=== PATIENT | male | born 1945 | race Caucasian/White ===

== ENCOUNTER 2019-04-13 15:39 | Emergency (ER) | payer MEDICARE, OTHER, SELFPAY ==
[2018-12-13 15:00] VITALS: BMI 34.8
[2019-04-13 15:41] VITALS: BP 165/85; PULSE 83; RESP 17; TEMP 37.2; O2SAT 95; BMI 33.2
[2019-04-13] MEDS: Diphth,Pertuss(Acell),Tet Vac 0.5 ML Vial IM (16:13)
--- NOTE | 2019-04-13 16:49 | ED.DEP ---
ED Disposition - Plan for ED Patient: Instructions: Fish Hook Removal Prescriptions: Cephalexin [Keflex] 500 mg PO Q12 #14 capsule Referrals: Donaldo Larson DO [Primary Care Provider] -
--- NOTE | 2019-04-13 16:55 | ED.VISSUMM ---
- ER Visit Summary Date of Service: 04/13/19 Chief Complaint: [place] left fourth finger History of Present Illness: The patient is a 74 M presenting with fishhook left fourth finger. Patient was fishing today. He accidentally got a fishhook stuck in his left fourth finger. This occurred just prior to arrival. Last tetanus is unknown. Denies other injury. Physical Examination: Vitals are stable. Patient is afebrile. Alert no acute distress. HEENT exam is unremarkable. Neck is supple. Lungs are clear and equal bilaterally. Heart is regular rate and rhythm. Extremities fish hook distal left 4th finger Skin is warm and dry. No focal neurologic deficit. Remainder of exam is unremarkable. Emergency Department Course and Treatment: Digital block was performed. Additional local lidocaine was instilled into the distal left fourth finger. [place] was removed. He is given tetanus IM and Keflex. Advised to watch for signs of infection. Advised to follow-up with primary care physician. Advised return to ED if worsening complaints. Disposition: Discharge home Impression: [place] left fourth finger, removal This note was generated with [employer] dictation software. It may contain incorrect words, spelling, and punctuation that were not noted in review of the chart prior to signing ED Disposition - Plan for ED Patient: Instructions: Fish Hook Removal Prescriptions: Cephalexin [Keflex] 500 mg PO Q12 #14 cap Prescription Printed Referrals: Donaldo Larson DO [Primary Care Provider] -
[2019-04-13 16:58] VITALS: BP 139/74; PULSE 61; RESP 15; O2SAT 98
[2019-04-13] MEDS: Cephalexin 250 MG Capsule 500 MG PO (16:59)
== END 2019-04-13 17:01 | disposition home or self-care (01) ==
PROVIDERS: Emergency Provider Emergency Medicine; Family Provider Family Medicine; PCP Family Medicine
DX: S61.245A Puncture wound with foreign body of left ring finger without damage to nail, initial encounter (principal); W45.8XXA Other foreign body or object entering through skin, initial encounter; Y93.9 Activity, unspecified; Y92.9 Unspecified place or not applicable; I10 Essential (primary) hypertension; F41.9 Anxiety disorder, unspecified; F43.10 Post-traumatic stress disorder, unspecified; Z79.01 Long term (current) use of anticoagulants; Z79.899 Other long term (current) drug therapy
CPT/HCPCS: 90471; 90715; 99284

== ENCOUNTER → 2019-07-29 13:44 | Outpatient (CLI) | payer MEDICARE, OTHER, SELFPAY ==
[2019-07-11 14:09] VITALS: BMI 35.9
--- NOTE | 2019-07-29 13:44 | ECHOCS_ITS ---
Reason For Study: Valve Replacement Eval Procedure This was a 2D Doppler, Color Flow transthoracic echocardiogram. The study was technically difficult. Contrast injection was performed. Exam performed in department. Left Ventricle Normal LV size. Left ventricular systolic function is normal. The estimated ejection fraction is 60 %. Post operative septal motion. Right Ventricle Normal RV size. Normal systolic function. Atria The left atrium is mildly enlarged. Normal right atrium. No doppler evidence for ASD. Mitral Valve There is no mitral annular calcification. Mild diffuse mitral valve thickening. Trivial mitral valve insufficiency. Tricuspid Valve Normal tricuspid valve. Trivial tricuspid valve insufficiency. Right ventricular systolic pressure estimated to be 24 mmHg. Aortic Valve Stable appearing mechanical aortic valve apparatus. Pulmonic Valve The pulmonic valve is not well visualized. Mild (1+) eccentric pulmonic valve insufficiency. Great Vessels The aortic root is not well visualized. Pericardium/Pleural No pericardial effusion. Medication 22 gauge I.V. with prn adaptor inserted into right arm. Diluted definity 2ml given slow IV push to enhance endocardial definition. MMode/2D Measurements & Calculations LVIDd: 5.0 cm IVSd: 1.3 cm LVOT diam: 2.1 cm LVIDs: 3.8 cm LVPWd: 1.1 cm FS: 25.1 % LVOT area: 3.5 cm2 LA dimension: 5.3 cm LVAd ap4: 38.2 cm2 SV(MOD-sp4): 83.5 ml EDV(MOD-sp4): 150.6 ml EDV(sp4-el): 158.5 ml LVAs ap4: 23.7 cm2 ESV(MOD-sp4): 67.2 ml ESV(sp4-el): 67.0 ml EF(MOD-sp4): 55.4 % EF(sp4-el): 57.7 % SV(sp4-): 91.5 ml Time Measurements MV dec time: 0.18 sec Doppler Measurements & Calculations MV E max darrick: 84.1 cm/sec Lat Peak E' Darrick: 13.6 cm/sec Med Peak E' Darrick: 7.8 cm/sec MV A max darrick: 56.4 cm/sec E/E' lat: 6.2 E/E' med: 10.8 MV E/A: 1.5 MV V2 max: 92.2 cm/sec MV P1/2t max darrick: 90.1 cm/sec Ao V2 max: 191.8 cm/sec MV max P.4 mmHg MV P1/2t: 51.2 msec Ao max P.7 mmHg MV V2 mean: 48.4 cm/sec MV dec slope: 515.6 cm/sec2 Ao V2 mean: 141.0 cm/sec MV mean P.1 mmHg Ao mean P.7 mmHg MV V2 VTI: 21.0 cm MVA(P1/2t): 4.3 cm2 Ao V2 VTI: 37.7 cm MVA(VTI): 3.9 cm2 SEVERIANO(I,D): 2.1 cm2 SEVERIANO(V,D): 1.8 cm2 LV V1 max: 101.2 cm/sec SV(LVOT): 81.0 ml PA V2 max: 199.3 cm/sec LV V1 max P.1 mmHg LV V1 mean P.5 mmHg LV V1 mean: 74.2 cm/sec LV V1 VTI: 23.5 cm PI end-d darrick: 122.8 cm/sec TR max darrick: 231.5 cm/sec TR max P.4 mmHg Interpretation Summary The study was technically difficult. Contrast injection was performed. Left ventricular systolic function is normal. The estimated ejection fraction is 60 %. Post operative septal motion. The left atrium is mildly enlarged. Mild diffuse mitral valve thickening. Trivial mitral valve insufficiency. Trivial tricuspid valve insufficiency. Stable appearing mechanical aortic valve apparatus. The pulmonic valve is not well visualized. Mild (1+) eccentric pulmonic valve insufficiency. The aortic root is not well visualized. Right ventricular systolic pressure estimated to be 24 mmHg. Transmitral diastolic flow velocities suggest diastolic dysfunction (pseudonormal pattern). Ordering Physician: Markus Tran Referring Physician: Donaldo Larson Performed By: Alon Flynn RCS
== END ==
PROVIDERS: PCP Family Medicine; Referring Provider Internal Medicine Cardiovascular Disease; Visit Provider Internal Medicine Cardiovascular Disease
DX: Z95.2 Presence of prosthetic heart valve (principal); Z79.899 Other long term (current) drug therapy; Z95.3 Presence of xenogenic heart valve; E78.00 Pure hypercholesterolemia, unspecified; I10 Essential (primary) hypertension
CPT/HCPCS: 93306; Q9957; A4216; C8929

== ENCOUNTER 2020-08-05 07:53 | Outpatient (RCR) | payer MEDICARE, OTHER, SELFPAY ==
[2019-07-11 14:09] VITALS: BMI 35.9
[2020-08-05] MEDS: COVID-19 VACC, MRNA(PFIZER)/PF 30 MCG/0.3 ML SYRINGE IM (13:50)
[2020-08-26] MEDS: COVID-19 VACC, MRNA(PFIZER)/PF 30 MCG/0.3 ML SYRINGE IM (13:34)
== END 2020-08-05 23:59 ==
LOC: IMMUN 07:53
PROVIDERS: PCP Family Medicine; Visit Provider Family Medicine
DX: Z23 Encounter for immunization (principal)
CPT/HCPCS: 0001A; 0002A; 91300

== ENCOUNTER 2021-03-11 22:37 | Emergency (ER) | payer MEDICARE, OTHER, SELFPAY ==
[2021-03-11 22:39] VITALS: BP 117/76; PULSE 106; RESP 18; TEMP 36.1; O2SAT 99; BMI 33.6
[2021-03-11 22:48] VITALS: PULSE 107; RESP 16; O2SAT 97
--- NOTE | 2021-03-11 23:01 | EX.ED.DYSGE1 ---
HPI History of Present Illness Chief Complaint: Foreign Body Informant: patient Onset/Context/Timing Onset: Hours (1) Context: Sudden Onset Timing: Continuous Quality: FB sens Location: mid-chest Current Severity: Mild Maximum Severity: Severe Worsened by: trying to drink Relieved by: nothing Associated Symptoms Associated Symptoms: vomiting/spitting up when trying to swallow fluids Narrative Narrative: Suddenly felt food get stuck in his chest/throat while eating chicken quickly. Not able to tolerate any fluids. Now that he is here in the emergency department, he does not feel the sensation in his chest anymore. Never had this happen before. Has a history of lots of surgeries but nothing in the last month or 2. 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 Palpitations Panic disorder Pneumaturia Post traumatic stress disorder Pure hypercholesterolemia Sigmoid diverticulitis Streptococcal endocarditis Home Medications alprazolam 0.5 mg tablet 0.5 mg PO QDAY PRN tab 05/24/17 [History Last Taken Unknown] citalopram 20 mg tablet 20 mg PO QDAY 05/24/17 [History Last Taken Unknown] cephalexin 500 mg PO Q12 #14 cap 04/13/19 [Rx Last Taken Unknown] warfarin 1 mg tablet 1.5 mg PO QDAY #135 tab 03/29/20 [Rx Last Taken Unknown] warfarin 5 mg tablet 5 mg PO QDAY #90 tab 03/29/20 [Rx Last Taken Unknown] metoprolol tartrate 50 mg tablet 50 mg PO BID #180 tab 07/21/20 [Rx Last Taken Unknown] Allergy/AdvReac Type Severity Reaction Status Date / Time levofloxacin AdvReac Severe Passed out Verified 07/11/19 14:09 Family History Father CAD (coronary artery disease) Surgical History H/O aortic valve replacement H/O pulmonic valve replacement History of colon resection History of herniorrhaphy S/P pulmonary valve replacement with bioprosthetic valve Social History Smoking Status: Former smoker how long ago did patient quit smokin years ago alcohol intake: current alcohol intake frequency: holidays/special occasions only Alcohol type: beer details: social caffeine: Yes Type: coffee Number of servings: 1 ROS ROS ED Constitutional Constitutional ED: Denies chills or fever(s) Eyes Eyes: Denies change in vision or diplopia ENT ENT ED: Denies rhinorrhea or sore throat Cardiovascular Cardiovascular: Denies chest pain or palpitations Respiratory/Chest Respiratory/Chest: Denies cough or dyspnea Gastrointestinal Gastrointestinal: Reports as per HPI and vomiting; Denies abdominal pain or diarrhea Genitourinary Genitourinary ED: Denies dysuria or hematuria Musculoskeletal Musculoskeletal: Denies back pain or neck pain Integumentary Denies abscess or rash Neurologic Neurologic: Denies headache(s), paresthesias or weakness Psychiatric Psychiatric: Denies anxiety or suicidal thoughts EXAM Physical Exam Const Vital Signs: 03/11/21 22:39 Temperature 97 F L Temperature Source Temporal Pulse Rate 106 H Respiratory Rate 18 Blood Pressure 117/76 Blood Pressure Mean 89 Pulse Ox 99 Oxygen Delivery Method Room Air Positive well nourished and well developed General Appearance ED: well developed and NAD HEENT Reports moist mucous membranes normocephalic and atraumatic Eyes PERRL and EOMs intact bilaterally Neck full ROM and supple Resp normal respiratory effort and clear to auscultation bilaterally Cardio regular rate, regular rhythm and no murmurs GI non-tender and non-distended Auscultation: normoactive bowel sounds Palpation: soft and hernia ventral (Easily reducible & nontender) Neuro oriented x3, CN's II-XII intact bilaterally and no sensory deficits noted Sensorium / Orientation: awake and alert Motor Exam: strength 5/5 throughout Skin no rashes or lesions noted and no wounds MDM MDM MDM Narrative Medical decision making narrative: Patient was given a can of Coke and he drank several sips, he felt mild foreign body sensation in his chest, but then it passed and then he was able to drink without any difficulty. He was reassured, there is no indication for emergent EGD at this time, I discussed the process to some degree, and advised close the patient follow-up and a soft diet with mostly liquids until then. There is no one on for gastroenterology to discuss with at this time, however I think it would be reasonable that he call for a follow-up appointment. We discussed reasons to return. Discharge Plan Triage Chief Complaint: Foreign Body ED Provider: Chuck Villalobos Dx/Rx/DC Orders Clinical Impression: Esophageal obstruction due to food impaction Instructions: ED Soft Diet, ED Esophageal Foreign Body, Resolved Prescriptions: No Action citalopram [Celexa] 20 mg tablet 20 mg PO QDAY RF: 0 alprazolam [Xanax] 0.5 mg tablet 0.5 mg PO QDAY PRNRF: 0 cephalexin 500 MG capsule 500 mg PO Q12 Qty: 14 RF: 0 warfarin 5 mg tablet 5 mg PO QDAY Qty: 90 RF: 3 warfarin 1 mg tablet 1.5 mg PO QDAY Qty: 135 RF: 3 metoprolol tartrate 50 mg tablet 50 mg PO BID Qty: 180 RF: 3 Primary Care Provider: Donaldo Larson Referrals: Donaldo Larson DO [Primary Care Provider] - Yohan Perez DO [STAFF PHYSICIAN] - As soon as possible Disposition Disposition: Home, Self Care
[2021-03-11 23:04] VITALS: BP 120/69; PULSE 104; RESP 15; O2SAT 96
== END 2021-03-11 23:28 | disposition home or self-care (01) ==
LOC: ED 23:19
PROVIDERS: Emergency Provider Emergency Medicine; PCP Family Medicine
DX: K22.2 Esophageal obstruction (principal); T18.128A Food in esophagus causing other injury, initial encounter; X58.XXXA Exposure to other specified factors, initial encounter; Y93.9 Activity, unspecified; Y92.9 Unspecified place or not applicable; I10 Essential (primary) hypertension; I35.1 Nonrheumatic aortic (valve) insufficiency; I37.1 Nonrheumatic pulmonary valve insufficiency; E78.00 Pure hypercholesterolemia, unspecified; F41.9 Anxiety disorder, unspecified; F43.10 Post-traumatic stress disorder, unspecified; Z87.19 Personal history of other diseases of the digestive system; Z95.2 Presence of prosthetic heart valve; Z79.01 Long term (current) use of anticoagulants; Z79.899 Other long term (current) drug therapy; Z87.891 Personal history of nicotine dependence
CPT/HCPCS: 99281

== ENCOUNTER 2021-03-12 02:49 | Emergency (ER) | payer MEDICARE, OTHER, SELFPAY ==
[2021-03-12] VITALS (8 sets, daily range): BP systolic 124–150; BP diastolic 71–94; PULSE 72–110; RESP 12–19; TEMP 36.1–36.6; O2SAT 92–99; BMI 36.8
--- NOTE | 2021-03-12 03:00 | RAD_ITS ---
STUDY: X-RAY CHEST REASON FOR EXAM: Male, 75 years old. hematemesis TECHNIQUE: Single AP portable view of the chest. COMPARISON: 07/24/2016. FINDINGS: The lungs are underexpanded with vascular crowding. There are multiple small areas of atelectasis involving the bilateral mid lower lung cuevas. Otherwise lung cuevas are clear. There is no demonstrated pleural abnormality. Midline sternotomy wires. Cardiac size is normal. Normal mediastinum and corey. Normal visualized pulmonary arteries. There is atherosclerotic calcification of the aortic arch with tortuosity. There are diffuse degenerative changes of the visualized thoracic spine. There is degenerative osteoarthritis of the bilateral shoulders. There is no demonstrated abnormality of the visualized soft tissue structures of the upper abdomen. RAD/Chest 1 View (Portable) IMPRESSION: Bilateral mid lower lung field atelectasis, otherwise no acute cardiopulmonary process. Electronically Signed: Mayra Boyle MD at 3:31 EDT , Service support ,
[2021-03-12 03:07] LABS: Absolute Lymphocyte Count 1.08 X10^3/uL (0.83-4.51); Absolute Neutrophil Count 9.4 X10^3/uL (2.0-7.7); Basophil# 0.06 X10^3/uL; Basophil% 0.5 % (0-1); Eosinophil# 0.11 X10^3/uL; Eosinophils% 0.9 % (0-5); Hematocrit 45.6 % (40-54); Lymphocyte # 1.08 X10^3/ul (0.83-4.51); Lymphocyte % 9.3 % (19-41); Mean Corp Hgb Conc 32.9 g/dL (32-36); Mean Corpuscular Hgb 29.8 pg (27.0-32.0); Mean Corpuscular Volume 90.5 fL (80-94); Mean Platelet Vol. 10.2 fl (6.2-12.0); Monocyte# 0.92 X10^3/uL; Monocyte% 7.9 % (0-10); NRBC Flagged by Analyzer 0 % (0-5); Neutrophil # 9.43 X10^3/uL (2.7-7.7); Neutrophil % 81.1 % (47-70); Platelet Count 220 K/mm3 (150-450); RBC Distribution Width SD 43.2 fl (35.1-43.9); Red Blood Count 5.04 M/mm3 (4.6-6.2); White Blood Count 11.6 K/mm3 (4.4-11.0)
[2021-03-12] MEDS: Ondansetron 4 MG/2 ML Vial IV (03:08)
[2021-03-12] MEDS: Glucagon 1 MG/ML Syringe IV (03:09)
--- NOTE | 2021-03-12 03:17 | EX.ED.DYSGE1 ---
HPI History of Present Illness Chief Complaint: GI Bleed Informant: patient Onset/Context/Timing Onset: Today Quality: Vomiting Current Severity: Moderate Maximum Severity: Moderate Associated Symptoms Associated Symptoms: Streaks of blood, chest pain Narrative Narrative: Patient was just discharged from this emergency department by myself couple hours ago after having symptoms of an esophageal food impaction that apparently had self-resolved, we had him drinking cold without difficulty prior to discharge. He states he went home and took his pills, and at some point 15 or 20 minutes later started vomiting, he continued to vomit a lot of times, and eventually started seeing blood and eventually developed pain in his mid sternum chest that radiates to his mid upper back. He is on warfarin because of a mechanical heart valve and atrial fibrillation. He cannot tell if he had the pills get stuck or not when he swallowed them. He does not think he has had sensation right now but he is very poor historian and is difficult for him to tell because of the other discomfort he is having and the nausea. He is self-described as very anxious. [facility] Medical History (Updated 03/12/21 @ 04:[address] 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 Palpitations Panic disorder Pneumaturia Post traumatic stress disorder Pure hypercholesterolemia Sigmoid diverticulitis Streptococcal endocarditis Home Medications duloxetine 30 mg PO DAILY 03/12/21 [History Last Taken Unknown] lorazepam 0.5 mg PO Q4H PRN PRN 03/12/21 [History Last Taken Unknown] metoprolol tartrate 50 mg PO BID 03/12/21 [History Last Taken Unknown] warfarin 1 mg PO DAILY 03/12/21 [History Last Taken Unknown] warfarin 5 mg PO DAILY 03/12/21 [History Last Taken Unknown] Allergy/AdvReac Type Severity Reaction Status Date / Time levofloxacin AdvReac Severe Passed out Verified 03/12/21 02:55 Family History Father CAD (coronary artery disease) Surgical History (Updated 03/12/21 @ 04:[address] Chuck Villalobos MD) H/O aortic valve replacement H/O pulmonic valve replacement History of colon resection History of herniorrhaphy S/P pulmonary valve replacement with bioprosthetic valve Social History Smoking Status: Former smoker how long ago did patient quit smokin years ago alcohol intake: current alcohol intake frequency: holidays/special occasions only Alcohol type: beer details: social caffeine: Yes Type: coffee Number of servings: 1 ROS ROS ED Constitutional Constitutional ED: Denies chills or fever(s) Eyes Eyes: Denies change in vision or diplopia ENT ENT ED: Denies rhinorrhea or sore throat Cardiovascular Cardiovascular: Reports chest pain; Denies palpitations Respiratory/Chest Respiratory/Chest: Denies cough or dyspnea Gastrointestinal Gastrointestinal: Reports hematemesis, nausea and vomiting; Denies abdominal pain or diarrhea Genitourinary Genitourinary ED: Denies dysuria or hematuria Musculoskeletal Musculoskeletal: Reports back pain; Denies neck pain Integumentary Denies abscess or rash Neurologic Neurologic: Denies headache(s), paresthesias or weakness Psychiatric Psychiatric: Reports anxiety; Denies suicidal thoughts EXAM Physical Exam Const Vital Signs: 03/12/21 02:53 03/12/21 03:54 03/12/21 04:00 Temperature 97 F L Temperature Source Temporal Pulse Rate 96 81 107 H Respiratory Rate 12 16 16 Blood Pressure 150/94 H 124/80 H 145/90 H Blood Pressure Mean 112 94 108 Pulse Ox 95 99 Oxygen Delivery Method 03/12/21 04:54 03/12/21 05:01 03/12/21 06:09 Temperature 97.9 F Temperature Source Temporal Pulse Rate 72 Respiratory Rate 19 H Blood Pressure 145/90 H 145/90 H 146/78 H Blood Pressure Mean 108 108 100 Pulse Ox 97 Oxygen Delivery Method Room Air Positive well nourished and well developed Constitutional Narrative: No acute distress. Patient spits clear mucus into nearby bag with a scant streak of blood in it. Tolerating secretions, airway patent, no respiratory distress, speaking in full sentences. General Appearance ED: well developed and NAD HEENT Reports moist mucous membranes normocephalic and atraumatic Eyes PERRL and EOMs intact bilaterally Neck full ROM and supple Resp normal respiratory effort and clear to auscultation bilaterally Cardio regular rate, regular rhythm and no murmurs Rate: Negative for tachycardic Heart Sounds: click mid GI non-tender and non-distended Auscultation: normoactive bowel sounds Palpation: soft and hernia ventral (Reducible nontender nonerythematous) Back/Spine no CVA tenderness General Back: other FROM Extremity normal to inspection General Extremety ED: Negative for edema, pulses abnormal or tenderness General Extremity: Negative for edema or pulses abnormal Neuro oriented x3, CN's II-XII intact bilaterally and no sensory deficits noted Sensorium / Orientation: awake and alert Motor Exam: strength 5/5 throughout Psych activity/motor behavior normal Mood & Affect: anxious Skin no rashes or lesions noted and no wounds MDM MDM MDM Narrative Medical decision making narrative: Patient was treated with some IV fluids and Zofran, and on reevaluation his chest discomfort is gone. His EKG shows nothing acute, and I do not think his chest discomfort is cardiac related I think it is esophageal. However the patient on reexamination states that his back is hurting a lot. He goes into a long explanation about how he was doing a lot of walking earlier, he was carrying a heavy camera bag, etc., states that this is similar back discomfort to chronic discomfort he has had off and on for years but it is worse and although he continues to have hematemesis despite the Zofran that he had and that I offered to try to get him Tylenol and a muscle relaxer for his exacerbation of chronic back pain, he is very focused on that pain right now and wants some medication in the IV so I did give him some morphine as well as a p.o. challenge in the form of GI cocktail. He was able to get the GI cocktail down, but then later vomited back up and continues to vomit small amounts of blood intermittently. We cannot reverse his anticoagulation safely because he has a mechanical heart valve. He will likely require EGD. We have gastroenterology at this hospital, however he is not on-call this weekend. Discussed with surgery Dr. Celis, he states given my suspicion of esophageal etiology of this bleeding, which is true, he states the patient will need to see a senior mechanical design engineer and he is not comfortable scoping this. At this time the patient is maintaining his airway and is clinically stable, however continued to vomit small amounts of blood at a time. He will require transfer for higher level of care, with GI availability. The patient wanted to avoid [place] but did not care where we sent him, I discussed with him the bed availability was extremely tight in [place] due to the Covid pandemic surge where experiencing currently. [facility] in [place] do not have an available bed. [facility] and [facility] do not have available capacity either, and neither do any of the [facility] hospitals. [facility] accepts him to the emergency department as long as it is okay with their senior mechanical design engineer with whom the transfer center also spoke to. All are in agreement for him to go to the emergency department at this time. Patient remains clinically hemodynamically stable, again tolerating secretions and occasionally vomiting, occasionally spitting, small amounts of blood at a time, the total amount of blood that he has vomited here is less than 100 cc. Lab Data Attestation: I reviewed the patient's lab results. Labs: Laboratory Results - last 24 hr 03/12/21 03/12/21 03/12/21 03:00 03:00 03:05 WBC 11.6 H RBC 5.04 Hgb 15.0 Hct 45.6 MCV 90.5 MCH 29.8 MCHC 32.9 RDW Std Deviation 43.2 RDW Coeff of Rich 13.0 Plt Count 220 MPV 10.2 Immature Gran % (Auto) 0.300 Neut % (Auto) 81.1 H Lymph % (Auto) 9.3 L [place] % (Auto) 7.9 Eos % (Auto) 0.9 Baso % (Auto) 0.5 Absolute Neuts (auto) 9.4 H Absolute Lymphs (auto) 1.08 Nucleated RBC % 0 PT 25.2 H INR 2.4 Sodium 139 Potassium 4.4 Chloride 106 Carbon Dioxide 27.0 Anion Gap 6 BUN 16 Creatinine 1.19 Estim Creat Clear Calc 57.13 Est GFR (MDRD) Af Amer 77 Est GFR (MDRD) Non-Af 63 BUN/Creatinine Ratio 13.4 Glucose 146 H Calcium 8.9 Radiography Diagnostic Testing: Clinical Impression(s) from Imaging Studies Chest X-Ray 03/12/21 03:00 IMPRESSION: Bilateral mid lower lung field atelectasis, otherwise no acute cardiopulmonary process. Electronically Signed: Mayra Boyle MD at 3:31 EDT , Service support , EKG Initial EKG: Attestation: I personally reviewed and interpreted this EKG as follows: Interpretation: No Acute Injury Pattern, Atrial Fibrillation and RBBB Prior EKG tracings: available for review Prior: Unchanged Discharge Plan Triage Chief Complaint: GI Bleed ED Provider: Chuck Villalobos Dx/Rx/DC Orders Clinical Impression: Intractable vomiting, H/O aortic valve replacement, Ana M-Joy tear, Anticoagulated on warfarin Prescriptions: No Action lorazepam 0.5 mg tablet 0.5 mg PO Q4H PRN PRN (Reason: Anxiety) RF: 0 warfarin 5 mg tablet 5 mg PO DAILY RF: 0 metoprolol tartrate 50 mg tablet 50 mg PO BID RF: 0 warfarin 1 mg tablet 1 mg PO DAILY RF: 0 duloxetine 30 mg capsule,delayed release(DR/EC) 30 mg PO DAILY RF: 0 Primary Care Provider: Donaldo Larson Referrals: Donaldo Larson DO [Primary Care Provider] - Disposition Disposition: Acute Care Hospital Discharge Location: [facility]
[2021-03-12 03:25] LABS: Anion Gap 6 (5-15); BUN 16 mg/dL (7-18); BUN/Creat Ratio 13.4 RATIO (10-20); Calcium,Total 8.9 mg/dL (8.5-10.1); Chloride 106 mmol/L (98-107); Creatinine, Serum 1.19 mg/dL (0.70-1.30); EST Glomerular Filtration Rate 63 mL/min (>60); Est Glom Filt Rate - Afr Amer 77 mL/min (>60); Estimated Creatinine Clearance 57.13 ml/min; Glucose 146 mg/dL (74-106); Potassium 4.4 mmol/L (3.5-5.1); Sodium Level 139 mmol/L (136-145)
--- NOTE | 2021-03-12 03:31 | EKG12_ITS ---
Test Reason : CHEST/BACK PAIN Blood Pressure : / mmHG Vent. Rate : 101 BPM Atrial Rate : 096 BPM P-R Int : 000 ms QRS Dur : 158 ms QT Int : 402 ms P-R-T Axes : 000 030 052 degrees QTc Int : 521 ms Atrial fibrillation Right bundle branch block Abnormal ECG Confirmed by GALEN TORRES, BAR ([id number]), news video editor KATELYNN NAGY ([id number]) on 03/14/2021 12:48:34 PM Referred By: JAILYN Confirmed By:CÉSAR AARON MD
[2021-03-12 03:48] LABS: International Normalized Ratio 2.4; Prothrombin Time (Protime)PT. 25.2 SECONDS (11.7-14.9)
[2021-03-12] MEDS: Morphine 2 MG/ML Syringe IV ×2 (04:10→08:42)
[2021-03-12] MEDS: Mag Hydrox/Al Hydrox/Simeth 30 ML UDC PO (04:12)
[2021-03-12] MEDS: Metoclopramide 10 MG/2 ML Vial 5 MG IV (04:51)
[2021-03-12] MEDS: Morphine 4 MG/ML Syringe IV (06:00)
== END 2021-03-12 10:25 | disposition short-term general hospital (02) ==
PROVIDERS: Emergency Provider Emergency Medicine; PCP Family Medicine
DX: K22.6 Gastro-esophageal laceration-hemorrhage syndrome (principal); Z95.2 Presence of prosthetic heart valve; R11.2 Nausea with vomiting, unspecified; Z79.01 Long term (current) use of anticoagulants; I45.10 Unspecified right bundle-branch block; I10 Essential (primary) hypertension; E78.00 Pure hypercholesterolemia, unspecified; F43.10 Post-traumatic stress disorder, unspecified; I35.1 Nonrheumatic aortic (valve) insufficiency; I48.91 Unspecified atrial fibrillation; Z87.19 Personal history of other diseases of the digestive system; Z87.440 Personal history of urinary (tract) infections; Z79.899 Other long term (current) drug therapy; Z87.891 Personal history of nicotine dependence
CPT/HCPCS: 71045; 80048; 85025; 85610; 93005; 96374; 96375; 96376; 99285; A4216; J1610; J2405

== ENCOUNTER 2021-04-27 13:41 | Outpatient (RCR) | payer MEDICARE, OTHER, SELFPAY ==
[2021-04-06 16:35] LABS: International Normalized Ratio 2.2; Prothrombin Time (Protime)PT. 23.9 SECONDS (11.7-14.9)
[2021-04-12 17:03] LABS: International Normalized Ratio 2.6; Prothrombin Time (Protime)PT. 27.3 SECONDS (11.7-14.9)
[2021-04-27 14:57] LABS: Absolute Lymphocyte Count 1.06 X10^3/uL (0.83-4.51); Absolute Neutrophil Count 4.6 X10^3/uL (2.0-7.7); Basophil# 0.05 X10^3/uL; Basophil% 0.7 % (0-1); Eosinophil# 0.19 X10^3/uL; Eosinophils% 2.8 % (0-5); Hematocrit 41.9 % (40-54); Hemoglobin 13.5 g/dL (13.0-16.5); Lymphocyte # 1.06 X10^3/ul (0.83-4.51); Lymphocyte % 15.4 % (19-41); Mean Corp Hgb Conc 32.2 g/dL (32-36); Mean Corpuscular Hgb 30.1 pg (27.0-32.0); Mean Corpuscular Volume 93.3 fL (80-94); Mean Platelet Vol. 10.5 fl (6.2-12.0); Monocyte# 0.94 X10^3/uL; Monocyte% 13.7 % (0-10); NRBC Flagged by Analyzer 0 % (0-5); Neutrophil # 4.61 X10^3/uL (2.7-7.7); Neutrophil % 67.1 % (47-70); Platelet Count 271 K/mm3 (150-450); RBC Distribution Width CV 13.3 % (11.6-14.6); RBC Distribution Width SD 45.3 fl (35.1-43.9); Red Blood Count 4.49 M/mm3 (4.6-6.2); White Blood Count 6.9 K/mm3 (4.4-11.0)
[2021-04-27 15:09] LABS: International Normalized Ratio 2.3; Prothrombin Time (Protime)PT. 24.5 SECONDS (11.7-14.9)
[2021-04-27 15:33] LABS: Anion Gap 8 (5-15); BUN 12 mg/dL (7-18); BUN/Creat Ratio 12.3 RATIO (10-20); Calcium,Total 9.2 mg/dL (8.5-10.1); Chloride 105 mmol/L (98-107); Creatinine, Serum 0.98 mg/dL (0.70-1.30); EST Glomerular Filtration Rate 79 mL/min (>60); Est Glom Filt Rate - Afr Amer 96 mL/min (>60); Glucose 110 mg/dL (74-106); Magnesium 2.1 mg/dL (1.6-2.6); Potassium 4.7 mmol/L (3.5-5.1); Sodium Level 139 mmol/L (136-145)
== END 2021-05-03 18:00 | disposition home or self-care (01) ==
LOC: LAB 13:41
PROVIDERS: Nurse Practitioner Gerontology; PCP Family Medicine; Visit Provider Internal Medicine Cardiovascular Disease
DX: Z79.01 Long term (current) use of anticoagulants (principal); Z95.2 Presence of prosthetic heart valve; Z95.4 Presence of other heart-valve replacement; I10 Essential (primary) hypertension; L92.2 Granuloma faciale [eosinophilic granuloma of skin]; R00.2 Palpitations
CPT/HCPCS: 36415; 80048; 83735; 85025; 85610

== ENCOUNTER 2021-05-23 15:49 | Outpatient (RCR) | payer MEDICARE, OTHER, SELFPAY ==
[2021-05-23 16:31] LABS: International Normalized Ratio 2.1; Prothrombin Time (Protime)PT. 22.8 SECONDS (11.7-14.9)
== END 2021-06-04 18:00 | disposition home or self-care (01) ==
LOC: LAB 15:49
PROVIDERS: PCP Family Medicine; Visit Provider Internal Medicine Cardiovascular Disease
DX: Z79.01 Long term (current) use of anticoagulants (principal); Z95.2 Presence of prosthetic heart valve; Z95.4 Presence of other heart-valve replacement
CPT/HCPCS: 36415; 85610

== ENCOUNTER 2022-04-21 15:18 | Outpatient (CLI) | payer MEDICARE, OTHER, SELFPAY ==
[2022-04-21 17:52] LABS: International Normalized Ratio 2.2; Prothrombin Time (Protime)PT. 23.8 SECONDS (11.7-14.9)
[2022-04-21 18:29] LABS: ALB/GLOB Ratio 0.8 RATIO (0.9-2.4); AST(SGOT) 29 U/L (15-37); Alanine Aminotransfer ALT/SGPT 39 U/L (16-61); Albumin, Serum 3.6 g/dL (3.2-5.0); Alkaline Phosphatase 135 U/L (45-117); Anion Gap 6 (5-15); BUN 19 mg/dL (7-18); BUN/Creat Ratio 15.8 RATIO (10-20); Calcium,Total 8.8 mg/dL (8.5-10.1); Chloride 105 mmol/L (98-107); EST Glomerular Filtration Rate 62 mL/min (>60); Est Glom Filt Rate - Afr Amer 76 mL/min (>60); Globulin 4.5 g/dL (2.2-4.2); Glucose 102 mg/dL (74-106); Potassium 4.7 mmol/L (3.5-5.1); Protein, Total 8.1 g/dL (6.4-8.2); Sodium Level 138 mmol/L (136-145)
[2022-04-21 18:46] LABS: Hemoglobin A1c 5.7 % (3.8-5.6)
== END 2022-04-21 23:59 | disposition home or self-care (01) ==
LOC: BFHLAB 15:18
PROVIDERS: PCP Family Medicine; Visit Provider Family Medicine
DX: E11.9 Type 2 diabetes mellitus without complications (principal); Z12.5 Encounter for screening for malignant neoplasm of prostate; Z79.01 Long term (current) use of anticoagulants
CPT/HCPCS: 36415; 80053; 83036; 84153; 85610; G0103

== ENCOUNTER → 2022-05-25 | Outpatient (CLI) | payer MEDICARE, OTHER, SELFPAY ==
--- NOTE | 2022-05-25 12:58 | ECHOD_ITS ---
Reason For Study: Valve Replacement Eval Procedure This was a 2D Doppler, Color Flow transthoracic echocardiogram. The study was technically difficult. Exam performed in department. Left Ventricle Normal LV size. Left ventricular systolic function is normal. The estimated ejection fraction is 65 %. Post operative septal motion. Diastolic function is indeterminate. Right Ventricle Normal RV size. Normal systolic function. Atria The left atrium is moderately enlarged. The right atrium is moderately enlarged. No doppler evidence for ASD. Mitral Valve There is no mitral annular calcification. Mild diffuse mitral valve thickening. Mild mitral valve prolapse, anterior leaflet. Mild (1+) mitral valve insufficiency. Tricuspid Valve Normal tricuspid valve. Mild tricuspid valve insufficiency. Right ventricular systolic pressure estimated to be 43 mmHg. Aortic Valve Mild aortic stenosis. Stable appearing mechanical aortic valve apparatus. Pulmonic Valve The pulmonic valve is not well visualized. Trivial eccentric pulmonic valve insufficiency. Great Vessels Normal sized aortic root. Pericardium/Pleural No pericardial effusion. MMode/2D Measurements & Calculations LVIDd: 5.3 cm IVSd: 1.1 cm LVOT diam: 2.1 cm LVIDs: 3.8 cm LVPWd: 1.0 cm LVOT area: 3.3 cm2 RVDd: 4.6 cm FS: 28.3 % Ao root diam: 3.5 cm LAV(MOD-bp): 88.9 ml LA A4 area: 28.4 cm2 LA dimension: 5.2 cm LAV(MOD-bp) Indexed: 39.5 ml/m2 LAV(MOD-sp2): 72.6 ml LAV(MOD-sp4): 94.4 ml RA A4 area: 25.9 cm2 Time Measurements MV dec time: 0.14 sec Doppler Measurements & Calculations MV E max nilson: 113.5 cm/sec MV V2 max: 112.1 cm/sec Ao V2 max: 203.0 cm/sec MV max P.0 mmHg Ao max P.6 mmHg MV V2 mean: 57.6 cm/sec Ao V2 mean: 141.5 cm/sec MV mean P.6 mmHg Ao mean P.0 mmHg MV V2 VTI: 24.4 cm Ao V2 VTI: 41.7 cm MVA(VTI): 2.7 cm2 AV (velocity ratio): 0.47 SEVERIANO(I,D): 1.6 cm2 SEVERIANO(V,D): 1.6 cm2 LV V1 max: 98.3 cm/sec SV(LVOT): 65.1 ml PA V2 max: 211.2 cm/sec LV V1 max P.9 mmHg PA V2 mean: 151.2 cm/sec LV V1 mean P.0 mmHg LV V1 mean: 66.0 cm/sec LV V1 VTI: 19.6 cm TR max nilson: 295.6 cm/sec PI dec slope: 267.5 cm/sec2 TR max P.0 mmHg ECHO/Echo Complete Interpretation Summary The study was technically difficult. Left ventricular systolic function is normal. The estimated ejection fraction is 65 %. Post operative septal motion. The left atrium is moderately enlarged. The right atrium is moderately enlarged. Mild diffuse mitral valve thickening. Mild mitral valve prolapse, anterior leaflet Mild (1+) mitral valve insufficiency. Mild tricuspid valve insufficiency. Stable appearing mechanical aortic valve apparatus. Mild aortic stenosis. Trivial eccentric pulmonic valve insufficiency. Right ventricular systolic pressure estimated to be 43 mmHg. Diastolic function is indeterminate. Ordering Physician: Markus Tran Referring Physician: Donaldo Larson Performed By: Alon Flynn RCS
== END | disposition home or self-care (01) ==
PROVIDERS: PCP Family Medicine; Visit Provider Internal Medicine Cardiovascular Disease
DX: I33.0 Acute and subacute infective endocarditis (principal); B95.5 Unspecified streptococcus as the cause of diseases classified elsewhere; Z95.2 Presence of prosthetic heart valve; E78.00 Pure hypercholesterolemia, unspecified; I10 Essential (primary) hypertension
CPT/HCPCS: 93306

== ENCOUNTER 2022-07-08 14:11 | Emergency (ER) | payer MEDICARE, OTHER, SELFPAY ==
[2022-07-08 14:13] VITALS: BP 129/72; PULSE 104; RESP 14; TEMP 36.1; O2SAT 100; BMI 31.1
--- NOTE | 2022-07-08 14:41 | ED.RN ---
pt's name was called but had left.
[2022-07-08 15:25] LABS: Hematocrit 36.9 % (40-54); Mean Corp Hgb Conc 32.5 g/dL (32-36); Mean Corpuscular Hgb 29.7 pg (27.0-32.0); Mean Corpuscular Volume 91.3 fL (80-94); Mean Platelet Vol. 9.8 fl (6.2-12.0); Platelet Count 324 K/mm3 (150-450); RBC Distribution Width CV 13.7 % (11.6-14.6); RBC Distribution Width SD 45.8 fl (35.1-43.9); Red Blood Count 4.04 M/mm3 (4.6-6.2); White Blood Count 11.5 K/mm3 (4.4-11.0)
[2022-07-08 15:41] LABS: International Normalized Ratio 4.3
--- NOTE | 2022-07-08 15:58 | EDS_ITS ---
HPI History of Present Illness Chief Complaint: Lower Extremity Injury Detail of Chief Complaint: Atraumatic bruise left thigh Informant: patient Onset/Context/Timing Onset: Days (First noted 4 days ago) Context: Sudden Onset Timing: Continuous Quality: Marty distal anterior medial left thigh and proximal medial left leg Location: Left lower extremity Current Severity: Mild Maximum Severity: Mild Worsened by: Patient on anticoagulant Relieved by: Nothing Associated Symptoms Associated Symptoms: Pain 9 days prior to arrival. Narrative Narrative: Patient is a 77-year-old male. He is on Coumadin because of prosthetic aortic valve. 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 He presents because of concern he may bleed out. He has not had his PT/INR checked in some time. He states 9 days ago was walking up steps carrying a 3 pound bag of cat food. He had pain in his left leg. He had no direct trauma. He believes he ruptured his quadricep muscle. He denies paresthesia, anesthesia or motor weakness. He is concerned because the leg is more swollen and there is more discoloration. He denies head trauma. He denies bleeding of his gums. He denies hematuria. Denies black or maroon-colored stool. He denies orthostatic symptoms. 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 Nonrheumatic aortic (valve) insufficiency Nonrheumatic pulmonary valve insufficiency Other long-term (current) drug therapy Palpitations Panic disorder Pneumaturia Post traumatic stress disorder Pure hypercholesterolemia Sigmoid diverticulitis Streptococcal endocarditis Home Medications duloxetine 30 mg capsule,delayed release 30 mg PO DAILY 03/12/21 [History Last Taken Unknown] acetaminophen 500 mg tablet 1,000 mg PO Q8H PRN 04/07/21 [History Last Taken Unknown] lorazepam 0.5 mg tablet 0.5 mg PO Q8H PRN Anxiety 04/07/21 [History Last Taken Unknown] warfarin 1 mg tablet See Rx Instructions .Route .COMPLEX #135 TABLETS 12/06/22 [Rx Last Taken Unknown] metoprolol tartrate 50 mg tablet 50 mg PO BID 05/17/22 [History Last Taken Unknown] warfarin 5 mg tablet 5 mg PO DAILY #90 TABLETS 05/30/22 [Rx Last Taken Unknown] Allergy/AdvReac Type Severity Reaction Status Date / Time levofloxacin AdvReac Severe Passed out Verified 07/08/22 14:13 Family History Father CAD (coronary artery disease) Surgical History H/O pulmonic valve replacement History of colon resection History of herniorrhaphy History of mechanical aortic valve replacement History of pulmonic valve replacement with mechanical valve Social History Smoking Status: Former smoker how long ago did patient quit smokin years ago alcohol intake: current alcohol intake frequency: holidays/special occasions only Alcohol type: beer details: social caffeine: Yes Type: coffee Number of servings: 1 ROS ROS ED Constitutional Constitutional ED: Denies chills, fever(s), subjective, sweats or weight loss Eyes Eyes: Denies blurry vision, change in vision or diplopia Cardiovascular Cardiovascular: Denies chest pain or palpitations Respiratory/Chest Respiratory/Chest: Denies cough, dyspnea or dyspnea on exertion Gastrointestinal Gastrointestinal: Denies melena Genitourinary Genitourinary ED: Denies hematuria Musculoskeletal Musculoskeletal: Reports other Details: Detail in the HPI narrative ; Denies arthralgias, back pain, myalgias or neck pain Integumentary Reports other Details: Bruising as documented in the HPI narrative Neurologic Neurologic: Denies paresthesias or weakness Psychiatric Psychiatric: Reports anxiety Hematologic/Lymphatic Hematologic/Lymphatic: Reports easy bruising; Denies anemia EXAM Physical Exam Const Vital Signs: 07/08/22 14:13 Temperature 97 F L Temperature Source Temporal Pulse Rate 104 H Respiratory Rate 14 Blood Pressure 129/72 H Blood Pressure Mean 91 Pulse Ox 100 Oxygen Delivery Method Room Air Positive well nourished and well developed General Appearance ED: well developed; Negative for cyanotic, diaphoretic or pallor HEENT Reports moist mucous membranes HEENT Narrative: Head is atraumatic normocephalic. Ears normal. Nares patent. Mucosa moist. Posterior pharynx is normal. Eyes PERRL and EOMs intact bilaterally General Eye ED: Negative for pale conjunctiva or scleral icterus Neck no lymphadenopathy, supple and no JVD Chest Wall inspection of chest normal and palpation of chest normal Resp normal respiratory effort and clear to auscultation bilaterally Cardio regular rate; Negative for regular rhythm, S1 normal heart sound or no murmurs Palpation: Negative for palpable S3 or palpable S4 Rate: other Other Details: There is a click noted over the aortic listening area due to a metallic prosthetic valve. GI normal to inspection, nondistended, normoactive bowel sounds, non-tender, non-distended and no masses; Negative for hepatosplenomegaly Back/Spine Thoracic Spine / Upper Back: Negative for thoracic spinal tenderness Lumbar Spine / Lower Back: Negative for lumbar spinal tenderness Extremity Extremity Narrative: The left thigh is slightly swollen compared to the right. There is bruising as previously documented distal medial anterior left thigh and proximal medial left leg. DP and PT pulse are palpable. Patient has 5/5 strength with plantar and dorsiflexion of left foot. Patient is able to extend his leg against gravity. There is no pain. There is no palpable defect of the patella or quadricep tendon. There is no pain the patient of the quadricep muscle. There is no inguinal lymphadenopathy. The medial proximal left thigh is remarkable for varicosities. Neuro oriented x3, CN's II-XII intact bilaterally and no sensory deficits noted Sensorium / Orientation: alert Skin no rashes or lesions noted, no wounds and skin turgor normal Skin Narrative: Bruising as previously described General Skin Exam: Negative for elasticity normal, jaundice or pallor MDM MDM MDM Narrative Medical decision making narrative: PT/INR was obtained since patient is not had this checked in some time. CBC was obtained to assess H&H and determine if there is a significant drop since there is a difference in size of the left leg compared to the right leg. Records from cardiology was reviewed. Patient does have a metallic prosthetic valve and reason for Coumadin. He has not had his PT/INR checked for some time. Concerned that patient is having spontaneous bruising due to elevated PT/INR Lab Data Attestation: I reviewed the patient's lab results. Lab results narrative: There is approximately 1.5 to 2 g drop in hemoglobin. INR is supratherapeutic at 4.3. Labs: Laboratory Results - last 24 hr 07/08/22 07/08/22 15:15 15:15 WBC 11.5 H RBC 4.04 L Hgb 12.0 L Hct 36.9 L MCV 91.3 MCH 29.7 MCHC 32.5 RDW Std Deviation 45.8 H RDW Coeff of Rich 13.7 Plt Count 324 MPV 9.8 PT 41.0 H INR 4.3 H* Treatment and Re-Evaluation Narrative: Patient states his last dose of Coumadin was last evening. Take 6.5 g. Patient was instructed to take 1.5 this evening and 1.5 on Sunday and then decrease to 5 mg a day. He was instructed contact Dr. Tran's office on Sunday for PT/INR later this week. Spoke with Dr. Cintron who is on-call for Dr. Tran to inform him that patient will need a PT/INR check later this week. 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, Blood loss anemia, History of mechanical aortic valve replacement, History of pulmonic valve replacement with mechanical valve Instructions: ED Hematoma Prescriptions: No Action metoprolol tartrate 50 mg tablet 50 mg PO BID duloxetine 30 mg capsule,delayed release(DR/EC) 30 mg PO DAILY acetaminophen 500 mg tablet 1,000 mg PO Q8H PRN lorazepam 0.5 mg tablet 0.5 mg PO Q8H PRN (Reason: Anxiety) warfarin 1 mg tablet See Rx Instructions .ROUTE .COMPLEX Qty: 135 3RF Protocol: Dose Management Condition: Sunday Dose/Route: 6 mg Instruction: 1 x 1 mg tablet, 1 x 5 mg tablet Condition: Sunday Dose/Route: 8 mg Instruction: 3 x 1 mg tablets, 1 x 5 mg tablet Condition: Sunday Dose/Route: 6 mg Instruction: 1 x 1 mg tablet, 1 x 5 mg tablet Condition: Sunday Dose/Route: 6 mg Instruction: 1 x 1 mg tablet, 1 x 5 mg tablet Condition: Dose/Route: 6 mg Instruction: 1 x 1 mg tablet, 1 x 5 mg tablet Condition: Sunday Dose/Route: 6 mg Instruction: 1 x 1 mg tablet, 1 x 5 mg tablet Condition: Sunday Dose/Route: 6 mg Instruction: 1 x 1 mg tablet, 1 x 5 mg tablet Protocol Text: Adjustment Start Date: Sunday04/24/22 INR Value: 2.2 INR Date: 04/21/22 Recheck Date: 05/08/22 Dose Instruction: TAKE ONE AND A HALF TABLETS WITH A 5MG TABLET DAILY. DIRECTED. Rx Instructions: TAKE ONE AND A HALF TABLETS WITH A 5MG TABLET DAILY. DIRECTED. warfarin 5 mg tablet 5 mg PO DAILY Qty: 90 3RF Protocol: Dose Management Condition: Sunday Dose/Route: 6 mg Instruction: 1 x 1 mg tablet, 1 x 5 mg tablet Condition: Sunday Dose/Route: 8 mg Instruction: 3 x 1 mg tablets, 1 x 5 mg tablet Condition: Sunday Dose/Route: 6 mg Instruction: 1 x 1 mg tablet, 1 x 5 mg tablet Condition: Sunday Dose/Route: 6 mg Instruction: 1 x 1 mg tablet, 1 x 5 mg tablet Condition: Dose/Route: 6 mg Instruction: 1 x 1 mg tablet, 1 x 5 mg tablet Condition: Sunday Dose/Route: 6 mg Instruction: 1 x 1 mg tablet, 1 x 5 mg tablet Condition: Sunday Dose/Route: 6 mg Instruction: 1 x 1 mg tablet, 1 x 5 mg tablet Protocol Text: Adjustment Start Date: Sunday04/24/22 INR Value: 2.2 INR Date: 04/21/22 Recheck Date: 05/08/22 Primary Care Provider: Donaldo Larson Referrals: Donaldo Larson DO [Primary Care Provider] - Markus Tran MD [Med Staff - Active Staff] - 2 Days Activity Restrictions/Additional Instructions: Call Dr. Markus Tran's office on Sunday to have your PT/INR checked on . Take 1.5 mg of Coumadin ton, July 08 and July 09. Take 5 mg of Coumadin on Sunday until PT/INR has been checked by Dr. Tran. He will need to adjust your dose accordingly. Disposition Disposition: Home, Self Care
== END 2022-07-08 16:36 | disposition home or self-care (01) ==
PROVIDERS: Emergency Provider Emergency Medicine; PCP Family Medicine; Visit Provider Emergency Medicine
DX: S70.12XA Contusion of left thigh, initial encounter (principal); D50.0 Iron deficiency anemia secondary to blood loss (chronic); E78.00 Pure hypercholesterolemia, unspecified; I10 Essential (primary) hypertension; Z87.891 Personal history of nicotine dependence; Z79.01 Long term (current) use of anticoagulants; S80.12XA Contusion of left lower leg, initial encounter; X58.XXXA Exposure to other specified factors, initial encounter; Z95.2 Presence of prosthetic heart valve; Z79.899 Other long term (current) drug therapy; F41.9 Anxiety disorder, unspecified
CPT/HCPCS: 85027; 85610; 99282; A4216

== ENCOUNTER 2022-07-26 15:52 | Outpatient (RCR) | payer MEDICARE, OTHER, SELFPAY ==
[2022-07-12 16:02] LABS: International Normalized Ratio 2.3; Prothrombin Time (Protime)PT. 25.2 SECONDS (11.7-14.9)
[2022-07-19 16:22] LABS: International Normalized Ratio 2.2; Prothrombin Time (Protime)PT. 23.7 SECONDS (11.7-14.9)
[2022-07-26 17:39] LABS: International Normalized Ratio 1.6; Prothrombin Time (Protime)PT. 18.9 SECONDS (11.7-14.9)
== END 2022-07-26 18:00 | disposition home or self-care (01) ==
LOC: LAB 15:52
PROVIDERS: PCP Family Medicine; Referring Provider Internal Medicine Cardiovascular Disease; Visit Provider Internal Medicine Cardiovascular Disease
DX: Z79.01 Long term (current) use of anticoagulants (principal)
CPT/HCPCS: 36415; 85610

== ENCOUNTER 2022-08-27 14:44 | Inpatient (IN) | payer MEDICARE, OTHER, SELFPAY ==
[2022-08-27] VITALS (19 sets, daily range): BP systolic 43–179; BP diastolic 27–146; PULSE 89–112; RESP 10–18; TEMP 36.1–37.2; O2SAT 86–100; BMI 29.6; BMI 26.3
--- NOTE | 2022-08-27 15:39 | ED.VIS.GI ---
HPI HPI - GI History of Present Illness Chief Complaint: GI Bleed Informant: patient Narrative Narrative: Patient has had large amount of rectal bleeding several times in the past hour started all of a sudden. No abdominal pain, nausea, vomiting, syncope or near syncope. He is a little lightheaded, but he attributes that to a panic attack he is having because he is in the hospital. He states he has medical PTSD for multiple reasons and hates being in the hospital but knows he needs to be here because he is on Coumadin for a titanium heart valve. He states his aortic valve was replaced and due to the [place] 1 being damaged from bacterial endocarditis and he has been on Coumadin for years as a result. He is had partial colectomy for recurrent diverticulitis in the past and no other abdominal surgeries. He has a chronic abdominal hernia that is not bothering him as far as pain, nor is it any different. 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 current use of anticoagulant Nonrheumatic aortic (valve) insufficiency Nonrheumatic pulmonary valve insufficiency Other usp (current) drug therapy Palpitations Panic disorder Pneumaturia Post traumatic stress disorder Pure hypercholesterolemia Sigmoid diverticulitis Streptococcal endocarditis Home Medications acetaminophen 500 mg tablet 1,000 mg PO Q8H PRN Pain 04/07/21 [History Last Taken Unknown] lorazepam 0.5 mg tablet 0.5 mg PO Q8H PRN Anxiety 04/07/21 [History Last Taken Unknown] metoprolol tartrate 50 mg tablet 50 mg PO BID 05/17/22 [History Last Taken Unknown] duloxetine 60 mg capsule,delayed release 60 mg PO DAILY 08/27/22 [History Last Taken Unknown] warfarin 5 mg tablet 6.5 mg PO DAILY 08/27/22 [History Last Taken Unknown] Allergy/AdvReac Type Severity Reaction Status Date / Time levofloxacin AdvReac Severe Passed out Verified 08/27/22 14:45 Family History Father CAD (coronary artery disease) Surgical History H/O pulmonic valve replacement History of colon resection History of herniorrhaphy History of mechanical aortic valve replacement History of pulmonic valve replacement with mechanical valve Social History Smoking Status: Former smoker how long ago did patient quit smokin years ago alcohol intake: current alcohol intake frequency: holidays/special occasions only Alcohol type: beer details: social caffeine: Yes Type: coffee Number of servings: 1 ROS ROS ED Constitutional Constitutional ED: Denies chills or fever(s) Eyes Eyes: Denies change in vision or diplopia ENT ENT ED: Denies rhinorrhea or sore throat Cardiovascular Cardiovascular: Denies chest pain or palpitations Respiratory/Chest Respiratory/Chest: Denies cough or dyspnea Gastrointestinal Gastrointestinal: Reports hematochezia; Denies abdominal pain, diarrhea, hematemesis, melena, nausea or vomiting Genitourinary Genitourinary ED: Denies dysuria or hematuria Musculoskeletal Musculoskeletal: Denies back pain or neck pain Integumentary Denies abscess or rash Neurologic Neurologic: Denies headache(s), paresthesias or weakness Psychiatric Psychiatric: Reports anxiety; Denies suicidal thoughts EXAM Physical Exam Const Vital Signs: 08/27/22 14:45 Temperature 98 F Temperature Source Temporal Pulse Rate 112 H Respiratory Rate 18 Blood Pressure 179/146 H Blood Pressure Mean 157 Pulse Ox 100 Oxygen Delivery Method Room Air Positive well nourished and well developed General Appearance ED: well developed and NAD HEENT Reports moist mucous membranes normocephalic and atraumatic Eyes PERRL and EOMs intact bilaterally Neck full ROM and supple Resp normal respiratory effort and clear to auscultation bilaterally Cardio regular rate, regular rhythm and no murmurs GI non-tender and non-distended GI Narrative: Easily reducible ventral mid abdominal hernia, no tenderness. On rectal exam, there is a trace amount of red blood but no active bleeding or pooling. No tenderness or abscess. Couple external hemorrhoids that do not appear to have been recently bleeding or actively bleeding. Patient states he has a history of rectal prolapse, that is not present at this time. Auscultation: normoactive bowel sounds and hyperactive bowel sounds Palpation: soft Back/Spine no CVA tenderness General Back: other FROM Extremity normal to inspection General Extremety ED: Negative for edema, pulses abnormal or tenderness General Extremity: Negative for edema or pulses abnormal Neuro oriented x3, CN's II-XII intact bilaterally and no sensory deficits noted Sensorium / Orientation: awake and alert Motor Exam: strength 5/5 throughout Psych Psych Narrative: Anxious. Pressured speech, flight of ideas, otherwise thought processes are normal he just cannot stop talking about them. Skin no rashes or lesions noted and no wounds MDM MDM MDM Narrative Medical decision making narrative: Patient was given IV fluids, typed and screened, his labs show hemoglobin of 12.9 stable compared with prior values, his INR is 3.1, and for that reason we will admit him to the hospital. Gastroenterology will be available in the morning but they are not on-call today so I discussed with Dr. Mejia, who states she is on-call overnight and would help if there is any emergent need. Discussed with Dr. Luis Angel holm for admission to medical surgical since there are no PCU beds at this time. Patient is clinically and hemodynamically stable. Lab Data Attestation: I reviewed the patient's lab results. Labs: Laboratory Results - last 24 hr 08/27/22 08/27/22 08/27/22 15:36 15:36 15:36 WBC 11.0 RBC 4.27 L Hgb 12.9 L Hct 39.3 L MCV 92.0 MCH 30.2 MCHC 32.8 RDW Std Deviation 44.8 H RDW Coeff of Rich 13.2 Plt Count 293 MPV 10.0 Immature Gran % (Auto) 0.500 Neut % (Auto) 80.3 H Lymph % (Auto) 7.7 L Bullock % (Auto) 9.9 Eos % (Auto) 1.1 Baso % (Auto) 0.5 Absolute Neuts (auto) 8.9 H Absolute Lymphs (auto) 0.85 Nucleated RBC % 0 PT 31.8 H INR 3.1 Sodium 138 Potassium 4.0 Chloride 108 H Carbon Dioxide 27.0 Anion Gap 3 L BUN 18 Creatinine 1.08 Estim Creat Clear Calc 62.87 Est GFR (MDRD) Af Amer 85 Est GFR (MDRD) Non-Af 70 BUN/Creatinine Ratio 16.7 Glucose 151 H Calcium 8.7 Discharge Plan Triage Chief Complaint: GI Bleed ED Provider: Chuck Villalobos Dx/Rx/DC Orders Clinical Impression: Acute lower GI bleeding, Anticoagulated Prescriptions: No Action metoprolol tartrate 50 mg tablet 50 mg PO BID warfarin 5 mg tablet 6.5 mg PO DAILY Protocol: Dose Management Condition: Sunday Dose/Route: 6.5 mg Instruction: 6.5 x 1 mg tablets Condition: Sunday Dose/Route: 6.5 mg Instruction: 6.5 x 1 mg tablets Condition: Sunday Dose/Route: 6.5 mg Instruction: 6.5 x 1 mg tablets Condition: Sunday Dose/Route: 6.5 mg Instruction: 6.5 x 1 mg tablets Condition: Dose/Route: 6.5 mg Instruction: 6.5 x 1 mg tablets Condition: Sunday Dose/Route: 6.5 mg Instruction: 6.5 x 1 mg tablets Condition: Sunday Dose/Route: 6.5 mg Instruction: 6.5 x 1 mg tablets Protocol Text: Adjustment Start Date: Sunday08/14/22 INR Value: 2.4 INR Date: 08/11/22 Recheck Date: 08/28/22 duloxetine 60 mg capsule,delayed release(DR/EC) 60 mg PO DAILY acetaminophen 500 mg tablet 1,000 mg PO Q8H PRN (Reason: Pain) lorazepam 0.5 mg tablet 0.5 mg PO Q8H PRN (Reason: Anxiety) Primary Care Provider: Donaldo Larson Referrals: Donaldo Larson DO [Primary Care Provider] - Disposition Disposition: Acute Care [facility]
[2022-08-27 15:53] LABS: Absolute Lymphocyte Count 0.85 X10^3/uL (0.83-4.51); Absolute Neutrophil Count 8.9 X10^3/uL (2.0-7.7); Basophil# 0.05 X10^3/uL; Basophil% 0.5 % (0-1); Eosinophil# 0.12 X10^3/uL; Eosinophils% 1.1 % (0-5); Hematocrit 39.3 % (40-54); Hemoglobin 12.9 g/dL (13.0-16.5); Lymphocyte # 0.85 X10^3/ul (0.83-4.51); Lymphocyte % 7.7 % (19-41); Mean Corp Hgb Conc 32.8 g/dL (32-36); Mean Corpuscular Hgb 30.2 pg (27.0-32.0); Monocyte# 1.09 X10^3/uL; Monocyte% 9.9 % (0-10); NRBC Flagged by Analyzer 0 % (0-5); Neutrophil # 8.86 X10^3/uL (2.7-7.7); Neutrophil % 80.3 % (47-70); Platelet Count 293 K/mm3 (150-450); RBC Distribution Width CV 13.2 % (11.6-14.6); RBC Distribution Width SD 44.8 fl (35.1-43.9); Red Blood Count 4.27 M/mm3 (4.6-6.2)
[2022-08-27 16:10] LABS: Anion Gap 3 (5-15); BUN 18 mg/dL (7-18); BUN/Creat Ratio 16.7 RATIO (10-20); Calcium,Total 8.7 mg/dL (8.5-10.1); Chloride 108 mmol/L (98-107); Creatinine, Serum 1.08 mg/dL (0.70-1.30); EST Glomerular Filtration Rate 70 mL/min (>60); Est Glom Filt Rate - Afr Amer 85 mL/min (>60); Estimated Creatinine Clearance 62.87 ml/min; Glucose 151 mg/dL (74-106); Sodium Level 138 mmol/L (136-145)
[2022-08-27 16:18] LABS: International Normalized Ratio 3.1; Prothrombin Time (Protime)PT. 31.8 SECONDS (11.7-14.9)
--- NOTE | 2022-08-27 18:22 | PCM.HP.STD ---
HPI - General General Date of Admission: 08/27/22 Date of Service: 08/27/22 Chief Complaint: Bright red rectal bleeding HPI Narrative TRAMAINE MAST, is a 77 M who presents to the emergency room at [facility] with complaints of bright red rectal bleeding with onset approximately 2 to 3 PM today, he is abdominal cramping with the rectal bleeding, he does not have any hematemesis or any melena. 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 Patient's past medical history is also remarkable for a mechanical aortic valve which was placed when he was approximately 55 years old and a tissue pulmonic valve replacement. Work-up in the emergency room included labs which revealed a hemoglobin of 12.9, INR was 3.1 and chemistry panel was remarkable for glucose of 151. Upon examination in the emergency room, patient's systolic blood pressure was in the 90s, he was conversant and asymptomatic with his blood pressure until he went to set up to use the restroom and got very dizzy and almost passed out. I initially placed orders for the patient to go to [facility] but in the light of the patient's low blood pressure, I think it is better if he went to the ICU and I have changed the admission to an ICU status. I discussed the case with gastroenterology, patient will be given vitamin K and serial H&H's will be performed, I typed and crossed the patient for 2 units of packed red blood cells and these will be held. 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 Nonrheumatic aortic (valve) insufficiency Nonrheumatic pulmonary valve insufficiency Other residential (current) drug therapy Palpitations Panic disorder Pneumaturia Post traumatic stress disorder Pure hypercholesterolemia Sigmoid diverticulitis Streptococcal endocarditis Home Medications acetaminophen 500 mg tablet 1,000 mg PO Q8H PRN Pain 04/07/21 [History Last Taken Unknown] lorazepam 0.5 mg tablet 0.5 mg PO Q6H PRN Anxiety 04/07/21 [History Last Taken 08/27/22] metoprolol tartrate 50 mg tablet 50 mg PO BID 05/17/22 [History Last Taken 08/27/22] duloxetine 60 mg capsule,delayed release 60 mg PO DAILY 08/27/22 [History Last Taken 08/26/22] melatonin 10 mg disintegrating tablet 20 mg PO QHS SLEEP 08/27/22 [History Last Taken 08/26/22] psyllium husk 3.4 gram/5.4 gram oral powder (Metamucil) 1 tbsp PO BID SUPPLEMENT 08/27/22 [History Last Taken 08/26/22] warfarin 5 mg tablet 6.5 mg PO DAILY 08/27/22 [History Last Taken 08/26/22] Allergy/AdvReac Type Severity Reaction Status Date / Time levofloxacin AdvReac Severe Passed out Verified 08/27/22 14:45 Family History Father CAD (coronary artery disease) Surgical History H/O pulmonic valve replacement History of colon resection History of herniorrhaphy History of mechanical aortic valve replacement History of pulmonic valve replacement with mechanical valve Social History Smoking Status: Former smoker how long ago did patient quit smokin years ago alcohol intake: current alcohol intake frequency: holidays/special occasions only Alcohol type: beer details: social caffeine: Yes Type: coffee Number of servings: 1 ROS Constitutional Constitutional: Denies anorexia, change in weight, fever(s), night sweats or weakness Eyes Eyes: Denies blurry vision, change in vision, discharge from eye(s) or eye pain Cardiovascular Cardiovascular: Denies chest pain, claudication, edema or palpitations Respiratory/Chest Respiratory/Chest: Denies cough, hemoptysis, shortness of breath at rest or shortness of breath with exertion Gastrointestinal Gastrointestinal: Reports abdominal pain and hematochezia; Denies constipation, diarrhea, hematemesis, melena, nausea or vomiting Genitourinary Genitourinary: Denies dysuria, hematuria, urinary frequency, urinary hesitancy, urinary incontinence or urinary urgency Musculoskeletal Musculoskeletal: Denies back pain, joint pain, joint stiffness, joint swelling, myalgias or neck pain Neurologic Neurologic: Denies abnormal gait, abnormal speech, dizziness, focal weakness, headache(s), loss of vision, numbness, other visual disturbances, paresthesias, syncope or tingling Psychiatric Psychiatric: Denies anxiety, cognitive impairment, depression, irritability, mood swings or suicidal ideation Endocrine Endocrinology: Denies change in body appearance, cold intolerance, excessive sweating, heat intolerance, polydipsia or polyuria Hematologic/Lymphatic Hematologic/Lymphatic: Denies none, anemia, easy bleeding, easy bruising or lymphadenopathy Allergic/Immunologic Allergic/Immunologic: Denies rhinitis, urticaria, eczemia or asthma Vital Signs Vital Signs Vital Signs: 08/27/22 14:45 08/27/22 17:02 Temperature 98 F 98.9 F Temperature Source Temporal Oral Pulse Rate 112 H 89 Respiratory Rate 18 18 Blood Pressure 179/146 H 99/68 Blood Pressure Mean 157 78 Pulse Ox 100 98 Oxygen Delivery Method Room Air Room Air Weight Weight: 99.1 kg Body Mass Index (BMI) 29.6 Physical Exam Const alert, oriented x3, no apparent distress, average body habitus and healthy appearing General Appearance: cooperative, well kempt and well developed Orientation / Consciousness: awake, oriented to person, oriented to place and oriented to time HEENT normocephalic, head/scalp atraumatic, hearing grossly normal bilaterally and moist oral mucous membranes Eyes PERRL, EOMs intact bilaterally and conjunctivae normal Neck supple, no JVD, thyroid normal and no carotid bruits General: trachea midline Resp normal respiratory effort, no retractions, no use of accessory muscles and clear to auscultation bilaterally Auscultation: Negative for rales, rhonchi or wheezes Cardio regular rate, regular rhythm, no rub and no gallops Cardio Narrative: There is noted to be mechanical heart valve sound over the patient's precordial area GI normal to inspection, nondistended, normoactive bowel sounds, soft to palpation, non-tender and non-distended Extremity no clubbing, cyanosis or edema Skin no rashes or lesions noted General Skin Exam: no breakdown Neuro oriented x3, CN's II-XII intact bilaterally, moves all extremities, no focal motor deficits and no sensory deficits noted Sensorium / Orientation: awake and alert Speech: speech normal Psych affect normal Results Lab / Micro Data Result Diagrams: 08/27/22 15:36 08/27/22 15:36 Labs: Laboratory Results - last 24 hr 08/27/22 15:36: WBC 11.0, RBC 4.27 L, Hgb 12.9 L, Hct 39.3 L, MCV 92.0, MCH 30.2, MCHC 32.8, RDW Std Deviation 44.8 H, RDW Coeff of Rich 13.2, Plt Count 293, MPV 10.0, Immature Gran % (Auto) 0.500, Neut % (Auto) 80.3 H, Lymph % (Auto) 7.7 L, [place] % (Auto) 9.9, Eos % (Auto) 1.1, Baso % (Auto) 0.5, Absolute Neuts (auto) 8.9 H, Absolute Lymphs (auto) 0.85, Nucleated RBC % 0 08/27/22 15:36: PT 31.8 H, INR 3.1 08/27/22 15:36: Sodium 138, Potassium 4.0, Chloride 108 H, Carbon Dioxide 27.0, Anion Gap 3 L, BUN 18, Creatinine 1.08, Estim Creat Clear Calc 62.87, Est GFR (MDRD) Af Amer 85, Est GFR (MDRD) Non-Af 70, BUN/Creatinine Ratio 16.7, Glucose 151 H, Calcium 8.7 08/27/22 15:43: Blood Type AB POSITIVE, Antibody Screen NEGATIVE Assessment & Plan Assessment/Plan (1) Acute lower GI bleeding: PLAN: Plan 1. Bright red rectal bleeding-patient will be admitted to the ICU, serial H&H's will be performed, he will be given IV fluids, he will be prep for colonoscopy possibly tomorrow, I will give him IV vitamin K #2 valvular heart disease-patient has a tissue pulmonic valve and a mechanical aortic valve, INR will be repeated in the morning, again patient will be given vitamin K and attempt to correct the INR. #3 essential hypertension-patient's blood pressure medicines will be held at this time due to his hypotension in the emergency room. #4 chronic anxiety disorder-patient is on Ativan and Cymbalta chronically, these will be continued Again I discussed the case in length with gastroenterology. Total clinical time spent addressing the patient's medical issues, reviewing all of his data, and collaborating with patient's care team: 75 minutes Charges/Coding Visit Charges Inpatient E&M: 73523 Init Hosp L3
[2022-08-27 18:40] LABS: Absolute Lymphocyte Count 1.61 X10^3/uL (0.83-4.51); Absolute Neutrophil Count 16.1 X10^3/uL (2.0-7.7); Basophil# 0.08 X10^3/uL; Basophil% 0.4 % (0-1); Eosinophil# 0.08 X10^3/uL; Eosinophils% 0.4 % (0-5); Hematocrit 34.9 % (40-54); Hemoglobin 11.1 g/dL (13.0-16.5); Lymphocyte # 1.61 X10^3/ul (0.83-4.51); Lymphocyte % 8.3 % (19-41); Mean Corp Hgb Conc 31.8 g/dL (32-36); Mean Corpuscular Hgb 29.8 pg (27.0-32.0); Mean Corpuscular Volume 93.8 fL (80-94); Mean Platelet Vol. 9.9 fl (6.2-12.0); Monocyte# 1.45 X10^3/uL; Monocyte% 7.5 % (0-10); NRBC Flagged by Analyzer 0 % (0-5); Platelet Count 319 K/mm3 (150-450); RBC Distribution Width CV 13.2 % (11.6-14.6); RBC Distribution Width SD 45.1 fl (35.1-43.9); Red Blood Count 3.72 M/mm3 (4.6-6.2); White Blood Count 19.4 K/mm3 (4.4-11.0)
[2022-08-27] MEDS: 0.9% Normal Saline 1,000 ML 75 ML IV (18:57)
[2022-08-27] MEDS: LORazepam 0.5 MG Tablet PO (20:03)
[2022-08-27] MEDS: Ondansetron 4 MG/2 ML Vial IV (21:44)
[2022-08-27] MEDS: 0.9% Saline Lock 10 ML Syringe IV (21:44)
[2022-08-27 22:28] LABS: Hematocrit 32.3 % (40-54); Hemoglobin 10.1 g/dL (13.0-16.5)
--- NOTE | 2022-08-27 22:51 | PCM.HOSP.N ---
Hospitalist Note Patient with significant recurrent lindsay bleeding with bowel movement with multiple large clots with blood pressure now dropping with maps of 51. 2 unit PRBC noted per staff on hold which will be administered now. Will immediately administer FFP and request an additional 2 unit PRBC to be on hold. Will obtain repeat INR 30 minutes 1 hour following FFP completion and repeat H&H 1 hour following PRBC administration. In the interim will initiate 1 L normal saline bolus and reassess continuously for BP improvement. If it is not improving in the interim would plan pressor initiation pending ability for PRBC administration ideally. Gastroenterology is also being updated about current hemorrhagic shock for possibility of emergent intervention.
[2022-08-27] MEDS: 0.9% Normal Saline 1,000 ML 999 ML IV (22:55)
[2022-08-28] VITALS (29 sets, daily range): BP systolic 65–117; BP diastolic 51–84; PULSE 90–107; RESP 11–26; TEMP 36.1–37.1; O2SAT 93–100; BMI 27.1
[2022-08-28 04:35] LABS: Absolute Neutrophil Count 9.6 X10^3/uL (2.0-7.7); Basophil# 0.06 X10^3/uL; Basophil% 0.5 % (0-1); Eosinophil# 0.04 X10^3/uL; Eosinophils% 0.3 % (0-5); Hematocrit 32.3 % (40-54); Hemoglobin 10.5 g/dL (13.0-16.5); Lymphocyte % 11.9 % (19-41); Mean Corp Hgb Conc 32.5 g/dL (32-36); Mean Corpuscular Hgb 29.9 pg (27.0-32.0); Mean Platelet Vol. 10.2 fl (6.2-12.0); Monocyte# 1.37 X10^3/uL; Monocyte% 10.9 % (0-10); NRBC Flagged by Analyzer 0 % (0-5); Neutrophil # 9.55 X10^3/uL (2.7-7.7); Neutrophil % 75.8 % (47-70); Platelet Count 194 K/mm3 (150-450); RBC Distribution Width CV 13.4 % (11.6-14.6); RBC Distribution Width SD 45.6 fl (35.1-43.9); Red Blood Count 3.51 M/mm3 (4.6-6.2); White Blood Count 12.6 K/mm3 (4.4-11.0)
[2022-08-28 04:54] LABS: ALB/GLOB Ratio 0.8 RATIO (0.9-2.4); AST(SGOT) 22 U/L (15-37); Alanine Aminotransfer ALT/SGPT 27 U/L (16-61); Albumin, Serum 2.6 g/dL (3.2-5.0); Alkaline Phosphatase 95 U/L (45-117); Anion Gap 4 (5-15); BUN 18 mg/dL (7-18); BUN/Creat Ratio 19.5 RATIO (10-20); Calcium,Total 7.7 mg/dL (8.5-10.1); Chloride 112 mmol/L (98-107); Creatinine, Serum 0.92 mg/dL (0.70-1.30); EST Glomerular Filtration Rate 85 mL/min (>60); Est Glom Filt Rate - Afr Amer 102 mL/min (>60); Estimated Creatinine Clearance 78.18 ml/min; Globulin 3.1 g/dL (2.2-4.2); Glucose 115 mg/dL (74-106); Potassium 4.1 mmol/L (3.5-5.1); Protein, Total 5.7 g/dL (6.4-8.2); Sodium Level 140 mmol/L (136-145)
[2022-08-28] MEDS: LORazepam 0.5 MG Tablet PO ×2 (05:20→11:33)
[2022-08-28] MEDS: DULoxetine Hcl 60 MG Capsule PO (07:51)
[2022-08-28] MEDS: 0.9% Saline Lock 10 ML Syringe IV (07:51)
--- NOTE | 2022-08-28 07:54 | EX.PCM.CONCC ---
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 Continue to hold anticoagulation for now 2. Await GI recommendations 3. Check H&H routinely. Recheck INR 4. Delirium protocol 5. Avoid benzos IMPRESSIONS: 1. Acute hypotension secondary to GI bleed Patient with a history of an enterovesicular fistula status post resection. Patient now developing acute GI bleed. Gastroenterology has been consulted. We will keep patient off of anticoagulation for now, but initiation of a heparin drip may be necessary in the next 24 to 48 hours. H&H has been stable and last bowel movement was at 10 PM. However, patient's baseline hemoglobin appears to be around 15 indicating a 5 g drop from baseline. Patient does have a history of the fistula, so cannot exclude the need for a surgical evaluation. 2. 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 Patient is a relatively poor historian. Mechanical heart sound appears to be crisp at this time. We will continue to hold on anticoagulation given problem #1. Patient did receive vitamin K, so Coumadin will likely not be successful in achieving an appropriate INR rapidly. Patient may need a heparin drip in the next 24 to 48 hours. Defer to primary service on an echocardiogram, but appears to be doing well at this time. 3. History of endocarditis/anxiety/depression/advanced age/poor historian Complicates care, management, recovery and prognosis. Patient is at high risk for development of delirium. We will need to avoid benzodiazepines if possible. Okay to continue baseline Cymbalta, but would avoid Ativan if possible. Patient's girlfriend appears to have a better grasp of patient's history. HPI Consult Data Date of Consult: 08/28/22 HPI Narrative Reason for Consultation: GI bleed HPI Narrative: TRAMAINE MAST is a 77 M, with past medical history listed below, who presents to [facility] 08/27[facility]22 secondary to acute onset of rectal bleeding. Patient had not reported any abdominal pain, nausea, vomiting or syncope. Patient had reported some abdominal bloating and mild lightheadedness with change in body position. Patient reportedly is on anticoagulation at baseline secondary to a mechanical heart valve. Patient does report a history of previous lower GI bleed with colon resection of 8 inches. Patient does have a history of a chronic abdominal hernia following bowel resection, but does not state that this has changed in any significant way. In the ER, patient was hypertensive at 179/146 and tachycardic at 112. Patient was saturating well on room air and was not febrile. Laboratory work-up showed a white blood cell count of 11 with a hemoglobin of 12.9. INR was elevated at 3.1 with a bicarbonate of 27 and a creatinine of 1.1. Glucose was slightly elevated. Patient was not evaluated by GI initially, but surgery was able to provide coverage overnight. This morning, patient is doing okay. Patient is not reporting any significant abdominal pain. Patient's last bloody bowel movement was at approximately 10 PM. Patient is not reporting any nausea or vomiting. Patient does have a long history of diverticulosis, but was under the impression that the bowel resection cured me. Patient states he has been using Coumadin for quite some time for an artificial heart valve and this has been relatively stable. Patient has not reported any significant change in dietary and medications. Review of systems otherwise negative from a constitutional, HEENT, respiratory, cardiovascular, GI, genitourinary, musculoskeletal, skin, neurologic, psychiatric and hematologic system unless stated above. 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 Nonrheumatic aortic (valve) insufficiency Nonrheumatic pulmonary valve insufficiency Other [facility] (current) drug therapy Palpitations Panic disorder Pneumaturia Post traumatic stress disorder Pure hypercholesterolemia Sigmoid diverticulitis Streptococcal endocarditis Home Medications acetaminophen 500 mg tablet 1,000 mg PO Q8H PRN Pain 04/07/21 [History Last Taken Unknown] lorazepam 0.5 mg tablet 0.5 mg PO Q6H PRN Anxiety 04/07/21 [History Last Taken 08/27/22] metoprolol tartrate 50 mg tablet 50 mg PO BID 05/17/22 [History Last Taken 08/27/22] duloxetine 60 mg capsule,delayed release 60 mg PO DAILY 08/27/22 [History Last Taken 08/26/22] melatonin 10 mg disintegrating tablet 20 mg PO QHS SLEEP 08/27/22 [History Last Taken 08/26/22] psyllium husk 3.4 gram/5.4 gram oral powder (Metamucil) 1 tbsp PO BID SUPPLEMENT 08/27/22 [History Last Taken 08/26/22] warfarin 5 mg tablet 6.5 mg PO DAILY 08/27/22 [History Last Taken 08/26/22] Allergy/AdvReac Type Severity Reaction Status Date / Time levofloxacin AdvReac Severe Passed out Verified 08/27/22 14:45 Family History Father CAD (coronary artery disease) Surgical History H/O pulmonic valve replacement History of colon resection History of herniorrhaphy History of mechanical aortic valve replacement History of pulmonic valve replacement with mechanical valve Social History Smoking Status: Former smoker how long ago did patient quit smokin years ago alcohol intake: current alcohol intake frequency: holidays/special occasions only Alcohol type: beer details: social caffeine: Yes Type: coffee Number of servings: 1 ROS ROS Narrative See HPI Physical Exam Const alert, oriented x3, no apparent distress, average body habitus and healthy appearing General Appearance: cooperative, well kempt and well developed HEENT normocephalic, head/scalp atraumatic, hearing grossly normal bilaterally and moist oral mucous membranes Eyes PERRL, EOMs intact bilaterally and conjunctivae normal Neck supple, no JVD, thyroid normal and no carotid bruits General: trachea midline Resp normal respiratory effort, no retractions, no use of accessory muscles and clear to auscultation bilaterally Auscultation: Negative for rales, rhonchi or wheezes Cardio regular rate, regular rhythm, no rub and no gallops Cardio Narrative: There is noted to be mechanical heart valve sound over the patient's precordial area GI normal to inspection, nondistended, normoactive bowel sounds, soft to palpation, non-tender and non-distended Extremity no clubbing, cyanosis or edema Skin no rashes or lesions noted General Skin Exam: no breakdown Neuro oriented x3, CN's II-XII intact bilaterally, moves all extremities, no focal motor deficits and no sensory deficits noted Sensorium / Orientation: awake and alert Speech: speech normal Psych cooperative and affect normal Psych Narrative: Odd affect -tends to perseverate Medical Records Data Attestation: I reviewed the patient's medical records Lab / Micro Data Attestation: I reviewed the patient's lab results. Result Diagrams: 08/28/22 04:20 08/28/22 04:20 Labs: Laboratory Results - last 24 hr 08/27/22 15:36: WBC 11.0, RBC 4.27 L, Hgb 12.9 L, Hct 39.3 L, MCV 92.0, MCH 30.2, MCHC 32.8, RDW Std Deviation 44.8 H, RDW Coeff of Rich 13.2, Plt Count 293, MPV 10.0, Immature Gran % (Auto) 0.500, Neut % (Auto) 80.3 H, Lymph % (Auto) 7.7 L, [place] % (Auto) 9.9, Eos % (Auto) 1.1, Baso % (Auto) 0.5, Absolute Neuts (auto) 8.9 H, Absolute Lymphs (auto) 0.85, Nucleated RBC % 0 08/27/22 15:36: PT 31.8 H, INR 3.1 08/27/22 15:36: Sodium 138, Potassium 4.0, Chloride 108 H, Carbon Dioxide 27.0, Anion Gap 3 L, BUN 18, Creatinine 1.08, Estim Creat Clear Calc 62.87, Est GFR (MDRD) Af Amer 85, Est GFR (MDRD) Non-Af 70, BUN/Creatinine Ratio 16.7, Glucose 151 H, Calcium 8.7 08/27/22 15:43: Blood Type AB POSITIVE, Antibody Screen NEGATIVE 08/27/22 15:43: Crossmatch See Detail 08/27/22 15:43: Crossmatch See Detail 08/27/22 18:34: WBC 19.4 H, RBC 3.72 L, Hgb 11.1 L, Hct 34.9 L, MCV 93.8, MCH 29.8, MCHC 31.8 L, RDW Std Deviation 45.1 H, RDW Coeff of Rich 13.2, Plt Count 319, MPV 9.9, Immature Gran % (Auto) 0.400, Neut % (Auto) 83.0 H, Lymph % (Auto) 8.3 L, [place] % (Auto) 7.5, Eos % (Auto) 0.4, Baso % (Auto) 0.4, Absolute Neuts (auto) 16.1 H, Absolute Lymphs (auto) 1.61, Nucleated RBC % 0 08/27/22 22:00: Hgb 10.1 L, Hct 32.3 L 08/28/22 04:20: WBC 12.6 H, RBC 3.51 L, Hgb 10.5 L, Hct 32.3 L, MCV 92.0, MCH 29.9, MCHC 32.5, RDW Std Deviation 45.6 H, RDW Coeff of Rich 13.4, Plt Count 194, MPV 10.2, Immature Gran % (Auto) 0.600, Neut % (Auto) 75.8 H, Lymph % (Auto) 11.9 L, [place] % (Auto) 10.9 H, Eos % (Auto) 0.3, Baso % (Auto) 0.5, Absolute Neuts (auto) 9.6 H, Absolute Lymphs (auto) 1.50, Nucleated RBC % 0 08/28/22 04:20: Sodium 140, Potassium 4.1, Chloride 112 H, Carbon Dioxide 24.0, Anion Gap 4 L, BUN 18, Creatinine 0.92, Estim Creat Clear Calc 78.18, Est GFR (MDRD) Af Amer 102, Est GFR (MDRD) Non-Af 85, BUN/Creatinine Ratio 19.5, Glucose 115 H, Calcium 7.7 L, Total Bilirubin 1.60 H, AST 22, ALT 27, Alkaline Phosphatase 95, Total Protein 5.7 L, Albumin 2.6 L, Globulin 3.1, Albumin/Globulin Ratio 0.8 L Charges/Coding Visit Charges Inpatient E&M: 66320 Init Hosp L3
[2022-08-28 08:25] LABS: International Normalized Ratio 1.6; Prothrombin Time (Protime)PT. 18.3 SECONDS (11.7-14.9)
[2022-08-28] MEDS: 0.9% Normal Saline 1,000 ML 75 ML IV ×2 (09:14→21:29)
[2022-08-28] MEDS: Bisacodyl 5 MG Tablet 20 MG PO (09:14)
--- NOTE | 2022-08-28 11:05 | CASEMGMT ---
RN?CM?IMAGING ENGINEER?CM?to room to meet with patient for initial transition planning/care coordination?assessment.?RN?CM?introduced self and role at [facility].? Pt voices understanding. Pt resting in bed at this time. He is anxious and c/o back pain, stating he has had this pain for years, but it is exacerbated d/t laying in the bed. RN, Ariana, aware. Pt states is okay to answer questions/complete assessment at this time. ? Pt is A/O at this time and answers all questions appropriately.?? Care providers, pharmacy, and demographics verified/updated at this time. PCP: Dr Larson Specialists: WILBERT- Foster Austin, RAILROAD CARMAN, and Dr Tran. Dr Billingsley-psychiatrist. Preferred Pharmacy: [facility]:?Yes Living Will/HPOA:?Has both LW and HCPOA, who is his sister, Dominique LNOK: Sister/POADominique. Brother, Jose Living Arrangements: Lives alone in 2-story home w/3 steps to enter. Bedroom upstairs on 2nd floor. Bathroom on main floor. Pt denies having difficulty with the stairs, stating he uses the steps as a work-out. He states he also does other exercises and bench-presses @ home. Indep w/ADL's and IADL's. Transportation:?Pt states he drives. He drove himself to [facility], but is not sure if he will be able to drive himself home .He states his sister, Dominique, or his girlfriend, Savanah, will be able to take him home, if needed. DME: ? Denies using any DME. No needs identified at this time. HHC/SNF: No hx of either. Denies needs and no needs identified. Pt wishes to return home and states has no concerns with going home at time of discharge.? ?CM?to follow for any discharge planning/needs.? Pt voices no concerns/needs at this time.? Advised pt to ask for?CM?if any questions/concerns/needs arise.? Voices understanding. PLAN:??Home Georgie BSN?RN?CM
[2022-08-28] MEDS: Acetaminophen 500 MG Tablet 1000 MG PO (11:33)
--- NOTE | 2022-08-28 15:23 | PN.HOSP_ITS ---
Reason for Visit Reason for Visit: Diagnoses Gastrointestinal hemorrhage, unspecified (08/27/22) Subjective Subjective Seen and examined today, he received 2 units of packed red blood cells last night, his prep unfortunately was not started yesterday, it will be started this morning however. I talked briefly with critical care about his care. Objective Data Objective Data Vital Signs: Vital Signs Temp Pulse Resp BP Pulse Ox O2 Del Method O2 Flow Rate 97.6 F L 105 H 19 H 106/60 93 Room Air 2 08/28/22 12:00 08/28/22 15:00 08/28/22 15:00 08/28/22 15:00 08/28/22 15:00 08/28/22 15:00 08/28/22 06:00 Oxygen Flow Rate (L/min) 2 Oxygen Delivery Method Room Air Weight: 95.8 kg Body Mass Index (BMI) 27.1 Intake & Output: Intake and Output for Last 24 Hours 08/26/22 08/27/22 08/28/22 23:59 23:59 23:59 Intake Total 842.25 / 842.25 2287.5 / 2287.5 Output Total 200 / 200 Balance 842.25 / 842.25 2087.5 / 2087.5 Lab / Micro Data Result Diagrams: 08/28/22 04:20 08/28/22 04:20 Labs: Laboratory Results - last 24 hr 08/27/22 15:36: WBC 11.0, RBC 4.27 L, Hgb 12.9 L, Hct 39.3 L, MCV 92.0, MCH 30.2, MCHC 32.8, RDW Std Deviation 44.8 H, RDW Coeff of Rich 13.2, Plt Count 293, MPV 10.0, Immature Gran % (Auto) 0.500, Neut % (Auto) 80.3 H, Lymph % (Auto) 7.7 L, [place] % (Auto) 9.9, Eos % (Auto) 1.1, Baso % (Auto) 0.5, Absolute Neuts (auto) 8.9 H, Absolute Lymphs (auto) 0.85, Nucleated RBC % 0 08/27/22 15:36: PT 31.8 H, INR 3.1 08/27/22 15:36: Sodium 138, Potassium 4.0, Chloride 108 H, Carbon Dioxide 27.0, Anion Gap 3 L, BUN 18, Creatinine 1.08, Estim Creat Clear Calc 62.87, Est GFR (MDRD) Af Amer 85, Est GFR (MDRD) Non-Af 70, BUN/Creatinine Ratio 16.7, Glucose 151 H, Calcium 8.7 08/27/22 15:43: Blood Type AB POSITIVE, Antibody Screen NEGATIVE 08/27/22 15:43: Crossmatch See Detail 08/27/22 15:43: Crossmatch See Detail 08/27/22 18:34: WBC 19.4 H, RBC 3.72 L, Hgb 11.1 L, Hct 34.9 L, MCV 93.8, MCH 29.8, MCHC 31.8 L, RDW Std Deviation 45.1 H, RDW Coeff of Rich 13.2, Plt Count 319, MPV 9.9, Immature Gran % (Auto) 0.400, Neut % (Auto) 83.0 H, Lymph % (Auto) 8.3 L, [place] % (Auto) 7.5, Eos % (Auto) 0.4, Baso % (Auto) 0.4, Absolute Neuts (auto) 16.1 H, Absolute Lymphs (auto) 1.61, Nucleated RBC % 0 08/27/22 22:00: Hgb 10.1 L, Hct 32.3 L 08/28/22 04:20: WBC 12.6 H, RBC 3.51 L, Hgb 10.5 L, Hct 32.3 L, MCV 92.0, MCH 29.9, MCHC 32.5, RDW Std Deviation 45.6 H, RDW Coeff of Rich 13.4, Plt Count 194, MPV 10.2, Immature Gran % (Auto) 0.600, Neut % (Auto) 75.8 H, Lymph % (Auto) 11.9 L, [place] % (Auto) 10.9 H, Eos % (Auto) 0.3, Baso % (Auto) 0.5, Absolute Neuts (auto) 9.6 H, Absolute Lymphs (auto) 1.50, Nucleated RBC % 0 08/28/22 04:20: Sodium 140, Potassium 4.1, Chloride 112 H, Carbon Dioxide 24.0, Anion Gap 4 L, BUN 18, Creatinine 0.92, Estim Creat Clear Calc 78.18, Est GFR (MDRD) Af Amer 102, Est GFR (MDRD) Non-Af 85, BUN/Creatinine Ratio 19.5, Glucose 115 H, Calcium 7.7 L, Total Bilirubin 1.60 H, AST 22, ALT 27, Alkaline Phosphatase 95, Total Protein 5.7 L, Albumin 2.6 L, Globulin 3.1, Albumin/Globulin Ratio 0.8 L 08/28/22 07:50: PT 18.3 H, INR 1.6 Physical Exam Narrative alert, oriented x3, no apparent distress, average body habitus and healthy appearing General Appearance: cooperative, well kempt and well developed Orientation / Consciousness: awake, oriented to person, oriented to place and oriented to time HEENT normocephalic, head/scalp atraumatic, hearing grossly normal bilaterally and moist oral mucous membranes Eyes PERRL, EOMs intact bilaterally and conjunctivae normal Neck supple, no JVD, thyroid normal and no carotid bruits General: trachea midline Resp normal respiratory effort, no retractions, no use of accessory muscles and clear to auscultation bilaterally Auscultation: Negative for rales, rhonchi or wheezes Cardio regular rate, regular rhythm, no rub and no gallops Cardio Narrative: There is noted to be mechanical heart valve sound over the patient's precordial area GI normal to inspection, nondistended, normoactive bowel sounds, soft to palpation, non-tender and non-distended Extremity no clubbing, cyanosis or edema Skin no rashes or lesions noted General Skin Exam: no breakdown Neuro oriented x3, CN's II-XII intact bilaterally, moves all extremities, no focal motor deficits and no sensory deficits noted Sensorium / Orientation: awake and alert Speech: speech normal Psych affect normal Assessment & Plan Assessment/Plan (1) Acute lower GI bleeding: PLAN: Plan 1. 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 #4 chronic anxiety disorder-patient is on Ativan and Cymbalta chronically, these will be continued Again I discussed the case in length with gastroenterology and critical care today Total clinical time spent addressing the patient's medical issues, reviewing all of his data, and collaborating with patient's care team: 35 minutes Charges/Coding Visit Charges Inpatient E&M: 28005 Subs Hosp L2
[2022-08-28] MEDS: Polyethylene Glycol 3350 BOWEL PREP PO ×2 (15:27→16:18)
--- NOTE | 2022-08-28 20:41 | EX.PCM.CON.G ---
HPI Consult Data Date of Consult: 08/28/22 HPI Narrative Reason for Consultation: GI bleeding HPI Narrative: TRAMAINE MAST, is a 77 M who presents with a large amount of rectal bleeding several times in the past hour started all of a sudden.? No abdominal pain, nausea, vomiting, syncope or near syncope.? He is a little lightheaded, but he attributes that to a panic attack he is having because he is in the hospital.? He states he has medical PTSD for multiple reasons and hates being in the hospital but knows he needs to be here because he is on Coumadin for a titanium heart valve.? 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 He is had partial colectomy for recurrent diverticulitis in the past and no other abdominal surgeries.? He has a chronic abdominal hernia that is not bothering him as far as pain, nor is it any different. [facility] Medical History Acute cystitis Acute diverticulitis Anxiety Anxiety disorder Colovesical fistula E coli bacteremia Essential hypertension Fever Gastrointestinal bleed Gram-negative bacteremia History of endocarditis senior living (current) use of anticoagulants senior living current use of anticoagulant senior living current use of anticoagulant Nonrheumatic aortic (valve) insufficiency Nonrheumatic pulmonary valve insufficiency Other group home (current) drug therapy Palpitations Panic disorder Pneumaturia Post traumatic stress disorder Pure hypercholesterolemia Sigmoid diverticulitis Streptococcal endocarditis Home Medications acetaminophen 500 mg tablet 1,000 mg PO Q8H PRN Pain 04/07/21 [History Last Taken Unknown] lorazepam 0.5 mg tablet 0.5 mg PO Q6H PRN Anxiety 04/07/21 [History Last Taken 08/27/22] metoprolol tartrate 50 mg tablet 50 mg PO BID 05/17/22 [History Last Taken 08/27/22] duloxetine 60 mg capsule,delayed release 60 mg PO DAILY 08/27/22 [History Last Taken 08/26/22] melatonin 10 mg disintegrating tablet 20 mg PO QHS SLEEP 08/27/22 [History Last Taken 08/26/22] psyllium husk 3.4 gram/5.4 gram oral powder (Metamucil) 1 tbsp PO BID SUPPLEMENT 08/27/22 [History Last Taken 08/26/22] warfarin 5 mg tablet 6.5 mg PO DAILY 08/27/22 [History Last Taken 08/26/22] Allergy/AdvReac Type Severity Reaction Status Date / Time levofloxacin AdvReac Severe Passed out Verified 08/27/22 14:45 Family History Father CAD (coronary artery disease) Surgical History H/O pulmonic valve replacement History of colon resection History of herniorrhaphy History of mechanical aortic valve replacement History of pulmonic valve replacement with mechanical valve Social History Smoking Status: Former smoker how long ago did patient quit smokin years ago alcohol intake: current alcohol intake frequency: holidays/special occasions only Alcohol type: beer details: social caffeine: Yes Type: coffee Number of servings: 1 ROS ROS Narrative See HPI Physical Exam Narrative alert, oriented x3, no apparent distress, average body habitus and healthy appearing General Appearance: cooperative, well kempt and well developed Orientation / Consciousness: awake, oriented to person, oriented to place and oriented to time HEENT normocephalic, head/scalp atraumatic, hearing grossly normal bilaterally and moist oral mucous membranes Eyes PERRL, EOMs intact bilaterally and conjunctivae normal Neck supple, no JVD, thyroid normal and no carotid bruits General: trachea midline Resp normal respiratory effort, no retractions, no use of accessory muscles and clear to auscultation bilaterally Auscultation: Negative for rales, rhonchi or wheezes Cardio regular rate, regular rhythm, no rub and no gallops Cardio Narrative: There is noted to be mechanical heart valve sound over the patient's precordial area GI normal to inspection, nondistended, normoactive bowel sounds, soft to palpation, non-tender and non-distended Extremity no clubbing, cyanosis or edema Skin no rashes or lesions noted General Skin Exam: no breakdown Neuro oriented x3, CN's II-XII intact bilaterally, moves all extremities, no focal motor deficits and no sensory deficits noted Sensorium / Orientation: awake and alert Speech: speech normal Psych affect normal Lab / Micro Data Result Diagrams: 08/28/22 04:20 08/28/22 04:20 Labs: Laboratory Results - last 24 hr 08/27/22 15:43: Crossmatch See Detail 08/27/22 15:43: Crossmatch See Detail 08/27/22 22:00: Hgb 10.1 L, Hct 32.3 L 08/28/22 04:20: WBC 12.6 H, RBC 3.51 L, Hgb 10.5 L, Hct 32.3 L, MCV 92.0, MCH 29.9, MCHC 32.5, RDW Std Deviation 45.6 H, RDW Coeff of Rich 13.4, Plt Count 194, MPV 10.2, Immature Gran % (Auto) 0.600, Neut % (Auto) 75.8 H, Lymph % (Auto) 11.9 L, [place] % (Auto) 10.9 H, Eos % (Auto) 0.3, Baso % (Auto) 0.5, Absolute Neuts (auto) 9.6 H, Absolute Lymphs (auto) 1.50, Nucleated RBC % 0 08/28/22 04:20: Sodium 140, Potassium 4.1, Chloride 112 H, Carbon Dioxide 24.0, Anion Gap 4 L, BUN 18, Creatinine 0.92, Estim Creat Clear Calc 78.18, Est GFR (MDRD) Af Amer 102, Est GFR (MDRD) Non-Af 85, BUN/Creatinine Ratio 19.5, Glucose 115 H, Calcium 7.7 L, Total Bilirubin 1.60 H, AST 22, ALT 27, Alkaline Phosphatase 95, Total Protein 5.7 L, Albumin 2.6 L, Globulin 3.1, Albumin/Globulin Ratio 0.8 L 08/28/22 07:50: PT 18.3 H, INR 1.6 Assessment & Plan Assessment/Plan (1) Acute lower GI bleeding: PLAN: Plan Bright red rectal bleeding- The differential diagnosis is diverticular bleeding, hemorrhoidal bleeding, angiodysplasia. His INR is 1.6. He will have a colonoscopy tomorrow. Charges/Coding Visit Charges Inpatient E&M: 70593 Init Hosp L2
[2022-08-28] MEDS: MELATONIN 10 MG TABLET 20 MG PO (21:29)
[2022-08-29] VITALS (24 sets, daily range): BP systolic 94–139; BP diastolic 45–77; PULSE 93–107; RESP 10–20; TEMP 36.2–36.9; O2SAT 91–100; BMI 27.6
[2022-08-29] MEDS: LORazepam 0.5 MG Tablet PO ×2 (03:07→23:48)
[2022-08-29 04:53] LABS: Absolute Lymphocyte Count 1.22 X10^3/uL (0.83-4.51); Absolute Neutrophil Count 6.7 X10^3/uL (2.0-7.7); Basophil# 0.07 X10^3/uL; Basophil% 0.7 % (0-1); Eosinophil# 0.28 X10^3/uL; Eosinophils% 2.9 % (0-5); Hematocrit 24.5 % (40-54); Lymphocyte # 1.22 X10^3/ul (0.83-4.51); Lymphocyte % 12.4 % (19-41); Mean Corp Hgb Conc 32.7 g/dL (32-36); Mean Corpuscular Hgb 29.6 pg (27.0-32.0); Mean Corpuscular Volume 90.7 fL (80-94); Mean Platelet Vol. 10.1 fl (6.2-12.0); Monocyte# 1.46 X10^3/uL; Monocyte% 14.9 % (0-10); NRBC Flagged by Analyzer 0 % (0-5); Neutrophil # 6.73 X10^3/uL (2.7-7.7); Neutrophil % 68.5 % (47-70); Platelet Count 151 K/mm3 (150-450); RBC Distribution Width CV 13.7 % (11.6-14.6); RBC Distribution Width SD 45.9 fl (35.1-43.9); White Blood Count 9.8 K/mm3 (4.4-11.0)
[2022-08-29 05:06] LABS: Anion Gap 3 (5-15); BUN 14 mg/dL (7-18); BUN/Creat Ratio 16.1 RATIO (10-20); Calcium,Total 7.6 mg/dL (8.5-10.1); Chloride 112 mmol/L (98-107); Creatinine, Serum 0.87 mg/dL (0.70-1.30); EST Glomerular Filtration Rate 91 mL/min (>60); Est Glom Filt Rate - Afr Amer 110 mL/min (>60); Estimated Creatinine Clearance 82.67 ml/min; Glucose 104 mg/dL (74-106); Potassium 3.4 mmol/L (3.5-5.1); Sodium Level 140 mmol/L (136-145)
--- NOTE | 2022-08-29 06:44 | PCM.PN.INT ---
Assessment & Plan Assessment/Plan (1) Acute lower GI bleeding: (2) intermediate current use of anticoagulant: (3) History of pulmonic valve replacement with mechanical valve: (4) History of mechanical aortic valve replacement: PLAN: Plan RECOMMENDATIONS: 1. Continue to hold anticoagulation for now. Possibly start heparin drip pending results of scopes 2. Await results of GI investigation 3. Check H&H routinely. Recheck INR 4. Delirium protocol 5. Avoid benzos IMPRESSIONS: 1. Acute hypotension secondary to GI bleed Patient with a history of an enterovesicular fistula status post resection. Patient now developing acute GI bleed. GI planning scope today. Patient did have some bleeding associated with bowel prep. No transfusions for now. We will keep patient off of anticoagulation for now, but initiation of a heparin drip may be started pending findings on scope. H&H has been stable and last bowel movement was at 10 PM. However, patient's baseline hemoglobin appears to be around 15 indicating a 5 g drop from baseline. Patient does have a history of the fistula, so cannot exclude the need for a surgical evaluation. 2. 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 Patient is a relatively poor historian. Mechanical heart sound appears to be crisp at this time. We will continue to hold on anticoagulation given problem #1. Patient did receive vitamin K, so Coumadin will likely not be successful in achieving an appropriate INR rapidly. Patient may need a heparin drip in the next 24 to 48 hours, pending results of scope. Defer to primary service on an echocardiogram, but appears to be doing well at this time. Good mechanical click noted on auscultation 3. History of endocarditis/anxiety/depression/advanced age/poor historian Complicates care, management, recovery and prognosis. Patient is at high risk for development of delirium. We will need to avoid benzodiazepines if possible. Okay to continue baseline Cymbalta, but would avoid Ativan if possible. Patient's girlfriend appears to have a better grasp of patient's history. Subjective Subjective Patient did okay overnight. No acute issues were reported. Patient did have bloody bowel movements associated with bowel prep. No hemodynamic instability has been noted overnight Objective Data Objective Data Vital Signs: Vital Signs Temp Pulse Resp BP Pulse Ox O2 Del Method O2 Flow Rate 36.9 C 103 H 16 110/58 L 96 Room Air 2 08/29/22 00:00 08/29/22 06:00 08/29/22 06:00 08/29/22 06:00 08/29/22 06:00 08/29/22 06:00 08/28/22 06:00 Oxygen Flow Rate (L/min) 2 Oxygen Delivery Method Room Air Weight: 95.8 kg Body Mass Index (BMI) 27.1 Intake & Output: Intake and Output for Last 24 Hours 08/27/22 08/28/22 08/29/22 23:59 23:59 23:59 Intake Total 842.25 / 842.25 4442.5 / 4442.5 0 / 0 Output Total 200 / 200 Balance 842.25 / 842.25 4242.5 / 4242.5 0 / 0 Lab / Micro Data Attestation: I reviewed the patient's lab results. Result Diagrams: 08/29/22 04:45 08/29/22 04:45 Labs: Laboratory Results - last 24 hr 08/28/22 07:50: PT 18.3 H, INR 1.6 08/29/22 04:45: WBC 9.8, RBC 2.70 L, Hgb 8.0 L, Hct 24.5 L, MCV 90.7, MCH 29.6, MCHC 32.7, RDW Std Deviation 45.9 H, RDW Coeff of Rich 13.7, Plt Count 151, MPV 10.1, Immature Gran % (Auto) 0.600, Neut % (Auto) 68.5, Lymph % (Auto) 12.4 L, [place] % (Auto) 14.9 H, Eos % (Auto) 2.9, Baso % (Auto) 0.7, Absolute Neuts (auto) 6.7, Absolute Lymphs (auto) 1.22, Nucleated RBC % 0 08/29/22 04:45: Sodium 140, Potassium 3.4 L, Chloride 112 H, Carbon Dioxide 25.0, Anion Gap 3 L, BUN 14, Creatinine 0.87, Estim Creat Clear Calc 82.67, Est GFR (MDRD) Af Amer 110, Est GFR (MDRD) Non-Af 91, BUN/Creatinine Ratio 16.1, Glucose 104, Calcium 7.6 L Physical Exam Const no apparent distress, average body habitus and healthy appearing Constitutional Narrative: Resting comfortably during my evaluation General Appearance: cooperative, well kempt and well developed HEENT normocephalic, head/scalp atraumatic, hearing grossly normal bilaterally and moist oral mucous membranes Eyes PERRL, EOMs intact bilaterally and conjunctivae normal Neck supple, no JVD, thyroid normal and no carotid bruits General: trachea midline Resp normal respiratory effort, no retractions, no use of accessory muscles and clear to auscultation bilaterally Auscultation: Negative for rales, rhonchi or wheezes Cardio regular rate, regular rhythm, no rub and no gallops Cardio Narrative: There is noted to be mechanical heart valve sound over the patient's precordial area GI normal to inspection, nondistended, normoactive bowel sounds, soft to palpation, non-tender and non-distended Extremity no clubbing, cyanosis or edema Skin no rashes or lesions noted General Skin Exam: no breakdown Neuro oriented x3, CN's II-XII intact bilaterally, moves all extremities, no focal motor deficits and no sensory deficits noted Sensorium / Orientation: awake and alert Speech: speech normal Psych cooperative and affect normal Psych Narrative: Odd affect -tends to perseverate Charges/Coding Visit Charges Inpatient E&M: 68562 Subs Hosp L2
[2022-08-29] MEDS: DULoxetine Hcl 60 MG Capsule PO (08:36)
[2022-08-29] MEDS: 0.9% Normal Saline 1,000 ML 75 ML IV (10:16)
[2022-08-29] MEDS: Lactated Ringers 1,000 ML 15 ML IV (14:39)
[2022-08-29] MEDS: Cefazolin 2 GM in 0.9% Normal Saline 100 ML IV (14:50)
--- NOTE | 2022-08-29 15:15 | EGD_PTH ---
PATIENT: TRAMAINE MAST LOC: [facility] U#:[id number] AGE/SX: 77/M ROOM: ICU01 RE08/27/[address]: Dr. Donaldo Kincaid DO : 1945 BED: 1 DIS: 08/31/2022 SPEC #: [id number] RECD: 08/29/22 16:43 STATUS: PATY RE #: [id number] AURA: 08/29/22 15:[address]: Yohan Perez DEPT: SURGICAL PATHOLOGY RECD BY: Eleanor Vega ENTERED: 08/30/22 09:24 SP TYPE: EGD BIOPSY OTHR DR: MD Dr. Jose De Jesus Collins, MD Dr. Donaldo Valle Dr., DO Dr. Donaldo Kincaid, MD Melissa Bianchi Dr., CYANIDE CASE HARDENER-C Tissues: COLON BIOPSY Procedures: Surgery Specimen Level IV Comments: @ Ordering doctor for SUIV edited from to @ wanda LOWE at 08/30/22 1503 @ Submitting doctor edited from to @ by MYNOR at 08/30/22 1503 HEADER OPERATION: Colonoscopy, EGD (MAC), bipolar cautery PRE-OP DIAGNOSIS: Anemia, GI bleed TISSUE SUBMITTED: Random colon, colitis MICROSCOPIC DIAGNOSIS Colon, random biopsy: Diffuse acute colitis. See comment. 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 Significant glandular distortion is not seen. No evidence of granuloma or dysplasia. Correlation with clinical, endoscopic findings and appropriate follow up are necessary. MICROSCOPIC DESCRIPTION Slides are reviewed. GROSS DESCRIPTION Received in fixative is one container labeled with the patient's name and designated random colon. The specimen consists of multiple irregular fragments of light chavira soft tissue that in aggregate measure 1.0 x 0.5 x 0.1 cm. The specimen is totally submitted in one cassette. / AM:dana 08/30/2022 TC:2 CPT: 55581
--- NOTE | 2022-08-29 16:27 | OP.EGD_ITS ---
Patient Name: Markus Nava Procedure Date: 08/29/2022 3:44 PM Date of : 1945 Age: 77 Procedure: Upper GI endoscopy Indications: Dysphagia Providers: Yohan Perez DO Medicines: Monitored Anesthesia Care Patient Profile: This is a 77 year old male. Refer to note in patient chart for documentation of history and physical. Patient has symptoms of acute dysphagia. Complications: No immediate complications. Procedure: Pre-Anesthesia Assessment: - Prior to the procedure, a History and Physical was performed, and patient medications and allergies were reviewed. The risks and benefits of the procedure and the sedation options and risks were discussed with the patient. All questions were answered and informed consent was obtained. Patient identification and proposed procedure were verified by the physician in the pre-procedure area. Mental Status Examination: alert and oriented. Airway Examination: normal oropharyngeal airway and neck mobility. Respiratory Examination: clear to auscultation. CV Examination: normal. Prophylactic Antibiotics: The patient does not require prophylactic antibiotics. Prior Anticoagulants: The patient has taken no previous anticoagulant or antiplatelet agents. ASA Grade Assessment: II - A patient with mild systemic disease. After reviewing the risks and benefits, the patient was deemed in satisfactory condition to undergo the procedure. The anesthesia plan was to use monitored anesthesia care (MAC). Immediately prior to administration of medications, the patient was re-assessed for adequacy to receive sedatives. The heart rate, respiratory rate, oxygen saturations, blood pressure, adequacy of pulmonary ventilation, and response to care were monitored throughout the procedure. The physical status of the patient was re-assessed after the procedure. After obtaining informed consent, the endoscope was passed under direct vision. Throughout the procedure, the patient's blood pressure, pulse, and oxygen saturations were monitored continuously. The pediatric colonoscope was introduced through the mouth, and advanced to the second part of duodenum. The upper GI endoscopy was accomplished without difficulty. The patient tolerated the procedure well. Scope In: 3:57:12 PM Scope Out: 4:00:42 PM Total Procedure Duration Time 0 hours 3 minutes 30 seconds Findings: LA Grade A (one or more mucosal breaks less than 5 mm, not extending between tops of 2 mucosal folds) esophagitis with bleeding was found 37 to 39 cm from the incisors. Coagulation for hemostasis using heater probe was successful. Estimated blood loss was minimal. The entire examined stomach was normal. The first portion of the duodenum was normal. Impression: - LA Grade A erosive esophagitis. Treated with a heater probe. - Normal stomach. - Normal first portion of the duodenum. - No specimens collected. Recommendation: - Return patient to hospital proctor for ongoing care. - Resume previous diet. - Use an H2 edith. - Continue present medications. Procedure Code(s): --- Professional --- 80030, Esophagogastroduodenoscopy, flexible, transoral; with control of bleeding, any method CPT copyright 2017 [employer]. All rights reserved. The codes documented in this report are preliminary and upon communications program manager review may be revised to meet current compliance requirements. Yohan Perez DO 08/29/2022 4:27:13 PM This report has been signed electronically. Number of Addenda: 0 Note Initiated On: 08/29/2022 3:44 PM
--- NOTE | 2022-08-29 16:27 | OP.CCLET_ITS ---
08/29/2022 Donaldo Larson [address] [facility] [place] [address] Re : Upper GI endoscopy procedure for Markus Nava Dear Dr. Larson This procedure was performed on Monday, August 29, 2022. My impressions and recommendations are as follows: Impressions : - LA Grade A erosive esophagitis. Treated with a heater probe. - Normal stomach. - Normal first portion of the duodenum. - No specimens collected. Recommendations : - Return patient to hospital proctor for ongoing care. - Resume previous diet. - Use an H2 edith. - Continue present medications. My findings are described in the full procedure note, which is enclosed. If I can be of further assistance, please feel free to contact me at . Sincerely, Yohan Perez, 08/29/2022 4:27:13 PM This report has been signed electronically.
--- NOTE | 2022-08-29 16:38 | OP.COLON_ITS ---
Patient Name: Markus Nava Procedure Date: 08/29/2022 4:01 PM Date of : 1945 Age: 77 Procedure: Colonoscopy Indications: Hematochezia Providers: Yohan Perez DO Medicines: Monitored Anesthesia Care Patient Profile: This is a 77 year old male. Refer to note in patient chart for documentation of history and physical. Patient has symptoms of acute dysphagia. Last Colonoscopy: date unknown. Unable to locate last colonoscopy report. Complications: No immediate complications. Procedure: Pre-Anesthesia Assessment: - Prior to the procedure, a History and Physical was performed, and patient medications and allergies were reviewed. The risks and benefits of the procedure and the sedation options and risks were discussed with the patient. All questions were answered and informed consent was obtained. Patient identification and proposed procedure were verified by the physician in the pre-procedure area. Mental Status Examination: alert and oriented. Airway Examination: normal oropharyngeal airway and neck mobility. Respiratory Examination: clear to auscultation. CV Examination: normal. Prophylactic Antibiotics: The patient does not require prophylactic antibiotics. Prior Anticoagulants: The patient has taken no previous anticoagulant or antiplatelet agents. ASA Grade Assessment: II - A patient with mild systemic disease. After reviewing the risks and benefits, the patient was deemed in satisfactory condition to undergo the procedure. The anesthesia plan was to use monitored anesthesia care (MAC). Immediately prior to administration of medications, the patient was re-assessed for adequacy to receive sedatives. The heart rate, respiratory rate, oxygen saturations, blood pressure, adequacy of pulmonary ventilation, and response to care were monitored throughout the procedure. The physical status of the patient was re-assessed after the procedure. After I obtained informed consent, the scope was passed under direct vision. Throughout the procedure, the patient's blood pressure, pulse, and oxygen saturations were monitored continuously. The pediatric colonoscope was introduced through the anus and advanced to the cecum, identified by appendiceal orifice and ileocecal valve. The colonoscopy was performed without difficulty. The patient tolerated the procedure well. The quality of the bowel preparation was fair. Scope In: 4:04:23 PM Scope Out: 4:18:49 PM Total Procedure Duration Time 0 hours 14 minutes 26 seconds Findings: The perianal and digital rectal examinations were normal. There was evidence of a prior end-to-side colo-colonic anastomosis in the recto-sigmoid colon. This was patent and was characterized by healthy appearing mucosa. Exudate was found in the entire colon. Biopsies were taken with a cold forceps for histology. Verification of patient identification for the specimen was done. Estimated blood loss was minimal. A diffuse pseudomembrane was found in the entire colon. Biopsies were taken with a cold forceps for histology. Verification of patient identification for the specimen was done. Estimated blood loss was minimal. Two small localized angiodysplastic lesions with bleeding were found in the cecum. Coagulation for hemostasis using heater probe was successful. Estimated blood loss was minimal. Impression: - Preparation of the colon was fair. - Patent end-to-side colo-colonic anastomosis, characterized by healthy appearing mucosa. - Exudate in the entire examined colon. Biopsied. - Pseudomembranous enterocolitis. - Two bleeding colonic angiodysplastic lesions. Treated with a heater probe. Recommendation: - Return patient to hospital proctor for ongoing care. - Vancocin (vancomycin) 125 mg PO QID for 2 weeks. - No repeat colonoscopy due to age. - Continue present medications. Procedure Code(s): --- Professional --- 29008, 59, Colonoscopy, flexible; with control of bleeding, any method 36409, Colonoscopy, flexible; with biopsy, single or multiple CPT copyright 2017 [employer]. All rights reserved. The codes documented in this report are preliminary and upon battery container inspector review may be revised to meet current compliance requirements. Yohan Perez DO 08/29/2022 4:37:12 PM This report has been signed electronically. Number of Addenda: 0 Note Initiated On: 08/29/2022 4:01 PM
--- NOTE | 2022-08-29 16:38 | OP.CCLET_ITS ---
08/29/2022 Donaldo Larson [address] [facility] [place] [address] Re : Colonoscopy procedure for Markus Nava Dear Dr. Larson This procedure was performed on Monday, August 29, 2022. My impressions and recommendations are as follows: Impressions : - Preparation of the colon was fair. - Patent end-to-side colo-colonic anastomosis, characterized by healthy appearing mucosa. - Exudate in the entire examined colon. Biopsied. - Pseudomembranous enterocolitis. - Two bleeding colonic angiodysplastic lesions. Treated with a heater probe. Recommendations : - Return patient to hospital proctor for ongoing care. - Vancocin (vancomycin) 125 mg PO QID for 2 weeks. - No repeat colonoscopy due to age. - Continue present medications. My findings are described in the full procedure note, which is enclosed. If I can be of further assistance, please feel free to contact me at . Sincerely, Yohan Perez, 08/29/2022 4:37:12 PM This report has been signed electronically.
--- NOTE | 2022-08-29 17:33 | PCM.PN.HOSP ---
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 difficile colitis on his colonoscopy. I talked with gastroenterology about his care today as well as critical care. Patient's hemoglobin this morning was 8. Objective Data Objective Data Vital Signs: Vital Signs Temp Pulse Resp BP Pulse Ox O2 Del Method O2 Flow Rate 97.3 F L 103 H 20 H 107/58 L 98 Room Air 2 08/29/22 16:46 08/29/22 16:46 08/29/22 16:46 08/29/22 16:46 08/29/22 16:46 08/29/22 16:46 08/28/22 06:00 Oxygen Flow Rate (L/min) 2 Oxygen Delivery Method Room Air Weight: 97.9 kg Body Mass Index (BMI) 27.6 Intake & Output: Intake and Output for Last 24 Hours 08/27/22 08/28/22 08/29/22 23:59 23:59 23:59 Intake Total 842.25 / 842.25 4442.5 / 4442.5 1151.25 / 1151.25 Output Total 200 / 200 Balance 842.25 / 842.25 4242.5 / 4242.5 1151.25 / 1151.25 Lab / Micro Data Result Diagrams: 08/29/22 04:45 08/29/22 04:45 Labs: Laboratory Results - last 24 hr 08/29/22 04:45: WBC 9.8, RBC 2.70 L, Hgb 8.0 L, Hct 24.5 L, MCV 90.7, MCH 29.6, MCHC 32.7, RDW Std Deviation 45.9 H, RDW Coeff of Rich 13.7, Plt Count 151, MPV 10.1, Immature Gran % (Auto) 0.600, Neut % (Auto) 68.5, Lymph % (Auto) 12.4 L, [place] % (Auto) 14.9 H, Eos % (Auto) 2.9, Baso % (Auto) 0.7, Absolute Neuts (auto) 6.7, Absolute Lymphs (auto) 1.22, Nucleated RBC % 0 08/29/22 04:45: Sodium 140, Potassium 3.4 L, Chloride 112 H, Carbon Dioxide 25.0, Anion Gap 3 L, BUN 14, Creatinine 0.87, Estim Creat Clear Calc 82.67, Est GFR (MDRD) Af Amer 110, Est GFR (MDRD) Non-Af 91, BUN/Creatinine Ratio 16.1, Glucose 104, Calcium 7.6 L Physical Exam Narrative alert, oriented x3, no apparent distress, average body habitus and healthy appearing General Appearance: cooperative, well kempt and well developed Orientation / Consciousness: awake, oriented to person, oriented to place and oriented to time HEENT normocephalic, head/scalp atraumatic, hearing grossly normal bilaterally and moist oral mucous membranes Eyes PERRL, EOMs intact bilaterally and conjunctivae normal Neck supple, no JVD, thyroid normal and no carotid bruits General: trachea midline Resp normal respiratory effort, no retractions, no use of accessory muscles and clear to auscultation bilaterally Auscultation: Negative for rales, rhonchi or wheezes Cardio regular rate, regular rhythm, no rub and no gallops Cardio Narrative: There is noted to be mechanical heart valve sound over the patient's precordial area GI normal to inspection, nondistended, normoactive bowel sounds, soft to palpation, non-tender and non-distended Extremity no clubbing, cyanosis or edema Skin no rashes or lesions noted General Skin Exam: no breakdown Neuro oriented x3, CN's II-XII intact bilaterally, moves all extremities, no focal motor deficits and no sensory deficits noted Sensorium / Orientation: awake and alert Speech: speech normal Psych affect normal Assessment & Plan Assessment/Plan (1) Acute lower GI bleeding: PLAN: Plan 1. Lower gastrointestinal hemorrhage secondary to C. difficile colitis-patient will be placed on oral vancomycin, he will be changed to Pepcid due to his C. difficile colitis (PPIs are contraindicated), patient will have repeat H&H tomorrow. 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 #3 essential hypertension-patient's blood pressure medicines will be held at this time due to relatively low systolic blood pressure. #4 chronic anxiety disorder-patient is on Ativan and Cymbalta chronically, these will be continued #5 C. difficile colitis-patient will be placed on oral vancomycin #6 erosive esophagitis-patient will be placed on IV Pepcid #7 acute blood loss anemia secondary to lower gastrointestinal hemorrhage-requiring blood transfusion, H&H will be repeated in the morning Again I discussed the case in length with gastroenterology and critical care today Total clinical time spent addressing the patient's medical issues, reviewing all of his data, and collaborating with patient's care team: 35 minutes Charges/Coding Visit Charges Inpatient E&M: 37711 Subs Hosp L2
[2022-08-29] MEDS: Enoxaparin 100 MG/ML Syringe SC (17:49)
[2022-08-29] MEDS: Vancomycin 125 MG/5 ML Susp PO.SYRINGE PO ×2 (17:49→23:46)
[2022-08-29] MEDS: Famotidine 20 MG Tablet 40 MG PO (21:46)
[2022-08-29] MEDS: MELATONIN 10 MG TABLET 20 MG PO (21:46)
[2022-08-30 02:00] VITALS: PULSE 104
[2022-08-30 04:00] VITALS: BP 118/67; PULSE 102; RESP 18; TEMP 36.8; O2SAT 98
[2022-08-30 04:17] LABS: Hematocrit 23.7 % (40-54); Hemoglobin 7.6 g/dL (13.0-16.5)
[2022-08-30 04:26] LABS: International Normalized Ratio 1.3; Prothrombin Time (Protime)PT. 16.3 SECONDS (11.7-14.9)
[2022-08-30 05:25] VITALS: BMI 27.6
[2022-08-30] MEDS: Vancomycin 125 MG/5 ML Susp PO.SYRINGE PO ×4 (06:16→23:45)
[2022-08-30] MEDS: 0.9% Normal Saline 1,000 ML 75 ML IV (06:16)
[2022-08-30 06:44] VITALS: O2SAT 97
--- NOTE | 2022-08-30 06:57 | PN.CC_ITS ---
Assessment & Plan Assessment/Plan (1) Acute lower GI bleeding: (2) nursing home current use of anticoagulant: (3) History of pulmonic valve replacement with mechanical valve: (4) History of mechanical aortic valve replacement: PLAN: Plan RECOMMENDATIONS: 1. Agree with Lovenox pending therapeutic INR 2. Defer to GI on work-up for pseudomembranous colitis 3. Check H&H routinely. Recheck INR daily 4. Delirium protocol 5. Avoid benzos 6. Hemodynamically stable on room air. Will sign off from a critical care perspective IMPRESSIONS: 1. Acute hypotension secondary to GI bleed Patient with a history of an enterovesicular fistula status post resection. Patient now developing acute GI bleed. GI planning scope today. Patient did have some bleeding associated with bowel prep. No transfusions for now. No bowel movements have been noted overnight. Patient does have some pseudomembranous changes of the colon, but biopsies are pending. Patient did have intervention for esophagitis that appears to have resolved GI bleed. Patient has been on Lovenox overnight. 2. 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 Patient is a relatively poor historian. Mechanical heart sound appears to be crisp at this time. We will continue to hold on anticoagulation given problem #1. Patient did receive vitamin K, so Coumadin will likely not be successful in achieving an appropriate INR rapidly. Continue Lovenox pending therapeutic INR. Defer to primary service on an echocardiogram, but appears to be doing well at this time. Good mechanical click noted on auscultation 3. History of endocarditis/anxiety/depression/advanced age/poor historian Complicates care, management, recovery and prognosis. Patient is at high risk for development of delirium. We will need to avoid benzodiazepines if possible. Okay to continue baseline Cymbalta, but would avoid Ativan if possible. Patient's girlfriend appears to have a better grasp of patient's history. Subjective Subjective Patient did well overnight. No acute issues were reported. Patient does remain on room air. Patient is not reporting any chest pain or abdominal pain. Patient has not had a bowel movement overnight. Objective Data Objective Data Patient with EGD and colonoscopy yesterday. Patient did have intervention for esophagitis with cauterization and was noted to have pseudomembranes on the colon. Vital Signs: Vital Signs Temp Pulse Resp BP Pulse Ox O2 Del Method O2 Flow Rate 36.8 C 102 H 18 118/67 98 Room Air 2 08/30/22 04:00 08/30/22 04:00 08/30/22 04:00 08/30/22 04:00 08/30/22 04:00 08/30/22 04:00 08/28/22 06:00 Oxygen Flow Rate (L/min) 2 Oxygen Delivery Method Room Air Weight: 97.7 kg Body Mass Index (BMI) 27.6 Intake & Output: Intake and Output for Last 24 Hours 08/28/22 08/29/22 08/30/22 23:59 23:59 23:59 Intake Total 4442.5 / 4442.5 2315.75 / 2315.75 50 / 50 Output Total 200 / 200 Balance 4242.5 / 4242.5 2315.75 / 2315.75 50 / 50 Lab / Micro Data Result Diagrams: 08/30/22 04:00 08/29/22 04:45 Labs: Laboratory Results - last 24 hr 08/30/22 04:00: PT 16.3 H, INR 1.3 08/30/22 04:00: Hgb 7.6 L, Hct 23.7 L Micro: Microbiology 08/29/22 16:15 Stool C. difficile DNA Amplification - Final 08/29/22 16:35 Stool Stool Lactoferrin - Final Physical Exam Const alert, oriented x3, no apparent distress, average body habitus and healthy appearing Constitutional Narrative: Resting comfortably during my evaluation General Appearance: cooperative, well kempt and well developed HEENT normocephalic, head/scalp atraumatic, hearing grossly normal bilaterally and moist oral mucous membranes Eyes PERRL, EOMs intact bilaterally and conjunctivae normal Neck supple, no JVD, thyroid normal and no carotid bruits General: trachea midline Resp normal respiratory effort, no retractions, no use of accessory muscles and clear to auscultation bilaterally Auscultation: Negative for rales, rhonchi or wheezes Cardio regular rate, regular rhythm, no rub and no gallops Cardio Narrative: There is noted to be mechanical heart valve sound over the patient's precordial area GI normal to inspection, nondistended, normoactive bowel sounds, soft to palpation, non-tender and non-distended Extremity no clubbing, cyanosis or edema Skin no rashes or lesions noted General Skin Exam: no breakdown Neuro oriented x3, CN's II-XII intact bilaterally, moves all extremities, no focal motor deficits and no sensory deficits noted Sensorium / Orientation: awake and alert Speech: speech normal Psych cooperative and affect normal Psych Narrative: Odd affect -tends to perseverate Charges/Coding Visit Charges Inpatient E&M: 45440 Subs Hosp L2
[2022-08-30] MEDS: DULoxetine Hcl 60 MG Capsule PO (09:27)
[2022-08-30] MEDS: Enoxaparin 100 MG/ML Syringe SC ×2 (09:27→21:13)
[2022-08-30] MEDS: Famotidine 20 MG Tablet 40 MG PO ×2 (09:30→21:13)
[2022-08-30] MEDS: LORazepam 0.5 MG Tablet PO ×2 (09:30→21:13)
[2022-08-30 10:00] VITALS: BP 107/50; PULSE 105; RESP 16; TEMP 36.8; O2SAT 96
--- NOTE | 2022-08-30 10:30 | PN.HOSP_ITS ---
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 Patient has not seen any more rectal bleeding as of this morning when I did my examination. Patient's C. difficile PCR was negative, I talked with gastroenterology and they still feel the patient has C. difficile. I gave the patient Coumadin this morning, we will continue Lovenox and Coumadin and monitor INR. Objective Data Objective Data Vital Signs: Vital Signs Temp Pulse Resp BP Pulse Ox O2 Del Method O2 Flow Rate 98.3 F 105 H 16 107/50 L 96 Room Air 2 08/30/22 10:00 08/30/22 10:00 08/30/22 10:00 08/30/22 10:00 08/30/22 10:00 08/30/22 10:00 08/28/22 06:00 Oxygen Flow Rate (L/min) 2 Oxygen Delivery Method Room Air Weight: 97.7 kg Body Mass Index (BMI) 27.6 Intake & Output: Intake and Output for Last 24 Hours 08/28/22 08/29/22 08/30/22 23:59 23:59 23:59 Intake Total 4442.5 / 4442.5 2315.75 / 2315.75 255 / 255 Output Total 200 / 200 Balance 4242.5 / 4242.5 2315.75 / 2315.75 255 / 255 Lab / Micro Data Result Diagrams: 08/30/22 04:00 08/29/22 04:45 Labs: Laboratory Results - last 24 hr 08/30/22 04:00: PT 16.3 H, INR 1.3 08/30/22 04:00: Hgb 7.6 L, Hct 23.7 L Micro: Microbiology 08/29/22 16:15 Stool C. difficile DNA Amplification - Final 08/29/22 16:35 Stool Stool Lactoferrin - Final Physical Exam Narrative alert, oriented x3, no apparent distress, average body habitus and healthy appearing General Appearance: cooperative, well kempt and well developed Orientation / Consciousness: awake, oriented to person, oriented to place and oriented to time HEENT normocephalic, head/scalp atraumatic, hearing grossly normal bilaterally and [place] st oral mucous membranes Eyes PERRL, EOMs intact bilaterally and conjunctivae normal Neck supple, no JVD, thyroid normal and no carotid bruits General: trachea midline Resp normal respiratory effort, no retractions, no use of accessory muscles and clear to auscultation bilaterally Auscultation: Negative for rales, rhonchi or wheezes Cardio regular rate, regular rhythm, no rub and no gallops Cardio Narrative: There is noted to be mechanical heart valve sound over the patient's precordial area GI normal to inspection, nondistended, normoactive bowel sounds, soft to palpation, non-tender and non-distended Extremity no clubbing, cyanosis or edema Skin no rashes or lesions noted General Skin Exam: no breakdown Neuro oriented x3, CN's II-XII intact bilaterally, moves all extremities, no focal mo tor deficits and no sensory deficits noted Sensorium / Orientation: awake and alert Speech: speech normal Psych affect normal Assessment & Plan Assessment/Plan (1) Acute lower GI bleeding: PLAN: Plan 1. Lower gastrointestinal hemorrhage secondary to C. 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 Patient was given extra Coumadin this morning. #3 essential hypertension-patient's blood pressure medicines will be held at this time due to relatively low systolic blood pressure. #4 chronic anxiety disorder-patient is on Ativan and Cymbalta chronically, these will be continued #5 C. difficile colitis-patient will continue on oral vancomycin #6 erosive esophagitis-patient will be transitioned to oral Pepcid #7 acute blood loss anemia secondary to lower gastrointestinal hemorrhage- requiring blood transfusion, H&H will be repeated in the morning Again I discussed the case in length with gastroenterology and critical care today Total clinical time spent addressing the patient's medical issues, reviewing all of his data, and collaborating with patient's care team: 35 minutes Charges/Coding Visit Charges Inpatient E&M: 93119 Subs Hosp L2
[2022-08-30 16:00] VITALS: BP 105/60; PULSE 108; RESP 18; TEMP 36.7; O2SAT 97
--- NOTE | 2022-08-30 20:51 | PCM.PROGNOTE ---
Subjective Subjective Patient underwent egd and colonoscopy yesterday for an acute GI bleed. His hgb this morning is 7.6. There was no signs of GI bleeding since the procedure. Objective Data Objective Data Vital Signs: Vital Signs Temp Pulse Resp BP Pulse Ox O2 Del Method O2 Flow Rate 98.0 F 108 H 18 105/60 97 Room Air 2 08/30/22 16:00 08/30/22 16:00 08/30/22 16:00 08/30/22 16:00 08/30/22 16:00 08/30/22 20:00 08/28/22 06:00 Oxygen Flow Rate (L/min) 2 Oxygen Delivery Method Room Air Weight: 215 lb 6.266 oz Body Mass Index (BMI) 27.6 Intake & Output: Intake and Output for Last 24 Hours 08/28/22 08/29/22 08/30/22 23:59 23:59 23:59 Intake Total 4442.5 / 4442.5 2315.75 / 2315.75 975 / 975 Output Total 200 / 200 Balance 4242.5 / 4242.5 2315.75 / 2315.75 975 / 975 Lab / Micro Data Result Diagrams: 08/30/22 04:00 08/29/22 04:45 Labs: Laboratory Results - last 24 hr 08/30/22 04:00: PT 16.3 H, INR 1.3 08/30/22 04:00: Hgb 7.6 L, Hct 23.7 L Micro: Microbiology 08/29/22 16:35 Stool Enteric Bacteriology - Final 08/29/22 16:15 Stool C. difficile DNA Amplification - Final 08/29/22 16:35 Stool Stool Lactoferrin - Final Physical Exam Narrative alert, oriented x3, no apparent distress, average body habitus and healthy appearing General Appearance: cooperative, well kempt and well developed Orientation / Consciousness: awake, oriented to person, oriented to place and oriented to time HEENT normocephalic, head/scalp atraumatic, hearing grossly normal bilaterally and moist oral mucous membranes Eyes PERRL, EOMs intact bilaterally and conjunctivae normal Neck supple, no JVD, thyroid normal and no carotid bruits General: trachea midline Resp normal respiratory effort, no retractions, no use of accessory muscles and clear to auscultation bilaterally Auscultation: Negative for rales, rhonchi or wheezes Cardio regular rate, regular rhythm, no rub and no gallops Cardio Narrative: There is noted to be mechanical heart valve sound over the patient's precordial area GI normal to inspection, nondistended, normoactive bowel sounds, soft to palpation, non-tender and non-distended Extremity no clubbing, cyanosis or edema Skin no rashes or lesions noted General Skin Exam: no breakdown Neuro oriented x3, CN's II-XII intact bilaterally, moves all extremities, no focal motor deficits and no sensory deficits noted Sensorium / Orientation: awake and alert Speech: speech normal Psych affect normal Assessment & Plan Assessment/Plan (1) Acute lower GI bleeding: PLAN: Lower GI bleeding secondary to angiodysplasia in the cecum and 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 The anastamosis from previous sigmoid resection was normal without stigmata of bleeding. He does not have any other diverticular disease that was seen on yesterdays colonoscopy. There were not any signs of acute or chronic GI blood loss seen on egd. (2) Pseudomembranous colitis: PLAN: [place] Pseudomembranous colitis seen on colonoscopy. Recommend Vancomyocin 125mg PO QID x 2 weeks (3) Anemia: PLAN: I would recommend to check iron studies and give iron transfusions if ferritin <50 or iron < 50 PLAN: Plan Monitor hemoglobin. Outpatient capsule study to look for any other sources of Gi bleeding in the small bowel. Charges/Coding Visit Charges Inpatient E&M: 26674 Subs Hosp L3
[2022-08-30 21:10] VITALS: BP 115/81; PULSE 105; RESP 15; TEMP 36.7; O2SAT 97
[2022-08-30] MEDS: MELATONIN 10 MG TABLET 20 MG PO (21:13)
[2022-08-31 03:10] VITALS: BP 104/42; PULSE 104; RESP 20; TEMP 37; O2SAT 97
[2022-08-31 03:47] LABS: Absolute Lymphocyte Count 0.82 X10^3/uL (0.83-4.51); Absolute Neutrophil Count 5.7 X10^3/uL (2.0-7.7); Basophil# 0.03 X10^3/uL; Basophil% 0.4 % (0-1); Eosinophil# 0.19 X10^3/uL; Eosinophils% 2.3 % (0-5); Hematocrit 24.3 % (40-54); Hemoglobin 7.8 g/dL (13.0-16.5); Lymphocyte # 0.82 X10^3/ul (0.83-4.51); Lymphocyte % 10.1 % (19-41); Mean Corp Hgb Conc 32.1 g/dL (32-36); Mean Corpuscular Hgb 30.1 pg (27.0-32.0); Mean Corpuscular Volume 93.8 fL (80-94); Mean Platelet Vol. 9.9 fl (6.2-12.0); Monocyte# 1.39 X10^3/uL; Monocyte% 17.1 % (0-10); NRBC Flagged by Analyzer 0 % (0-5); Neutrophil # 5.67 X10^3/uL (2.7-7.7); Neutrophil % 69.7 % (47-70); Platelet Count 178 K/mm3 (150-450); RBC Distribution Width CV 13.4 % (11.6-14.6); RBC Distribution Width SD 45.8 fl (35.1-43.9); Red Blood Count 2.59 M/mm3 (4.6-6.2); White Blood Count 8.1 K/mm3 (4.4-11.0)
[2022-08-31 04:03] LABS: International Normalized Ratio 1.5
[2022-08-31] MEDS: Vancomycin 125 MG/5 ML Susp PO.SYRINGE PO (05:14)
[2022-08-31] MEDS: 0.9% Saline Lock 10 ML Syringe IV (05:14)
[2022-08-31 05:45] VITALS: BMI 27.4
[2022-08-31 06:35] LABS: Anion Gap 5 (5-15); BUN 10 mg/dL (7-18); Calcium,Total 7.5 mg/dL (8.5-10.1); Chloride 112 mmol/L (98-107); Creatinine, Serum 0.71 mg/dL (0.70-1.30); EST Glomerular Filtration Rate 114 mL/min (>60); Est Glom Filt Rate - Afr Amer 137 mL/min (>60); Estimated Creatinine Clearance 71.93 ml/min; Glucose 94 mg/dL (74-106); Magnesium 1.6 mg/dL (1.6-2.6); Potassium 3.1 mmol/L (3.5-5.1); Sodium Level 141 mmol/L (136-145)
[2022-08-31 06:38] LABS: Phosphorus 1.9 mg/dL (2.5-4.9)
[2022-08-31 07:36] VITALS: O2SAT 96
[2022-08-31] MEDS: Magnesium Sulfate 4gm/100mL 4 GM/100 ML IV.SOLN. IV (08:06)
[2022-08-31 09:10] VITALS: BP 115/54; PULSE 104; RESP 16; TEMP 36.7; O2SAT 98
--- NOTE | 2022-08-31 09:51 | DCINST_ITS ---
Discharge Instructions Diet Discharge Diet: No restrictions Activity Discharge Activity: Return to Normal Activity Weight Bearing Status: Full weight bearing Follow Up Care Test Results: Test results from this visit will be discussed in further detail at your follow- up appointment, if applicable. 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 Instructions Additional Instructions / Restrictions: INR daily starting tomorrow morning, you may stop your injectable Lovenox when your INR is above 2.5 Discharge Orders/Prescriptions Prescriptions: New enoxaparin 100 mg/mL Syringe 100 mg subcut BID Qty: 8 0RF Rx Instructions: stop Lovenox when INR is 2.5 or above Firvanq 25 mg/mL Recon Soln 125 mg PO .QID Qty: 150 0RF famotidine [Pepcid] 40 mg tablet 40 mg PO BID Qty: 60 0RF Continued metoprolol tartrate 50 mg tablet 50 mg PO BID warfarin 5 mg tablet 6.5 mg PO DAILY Protocol: Dose Management Condition: Sunday Dose/Route: 6.5 mg Instruction: 6.5 x 1 mg tablets Condition: Sunday Dose/Route: 6.5 mg Instruction: 6.5 x 1 mg tablets Condition: Sunday Dose/Route: 6.5 mg Instruction: 6.5 x 1 mg tablets Condition: Sunday Dose/Route: 6.5 mg Instruction: 6.5 x 1 mg tablets Condition: Dose/Route: 6.5 mg Instruction: 6.5 x 1 mg tablets Condition: Sunday Dose/Route: 6.5 mg Instruction: 6.5 x 1 mg tablets Condition: Sunday Dose/Route: 6.5 mg Instruction: 6.5 x 1 mg tablets Protocol Text: Adjustment Start Date: Sunday08/14/22 INR Value: 2.4 INR Date: 08/11/22 Recheck Date: 08/28/22 duloxetine 60 mg capsule,delayed release(DR/EC) 60 mg PO DAILY Metamucil 3.4 gram/5.4 gram Powder 1 tbsp PO BID melatonin 10 mg Tablet,Disintegrating 20 mg PO QHS acetaminophen 500 mg tablet 1,000 mg PO Q8H PRN (Reason: Pain) lorazepam 0.5 mg tablet 0.5 mg PO Q6H PRN (Reason: Anxiety) Referrals / Follow Up: Donaldo Larson DO [Primary Care Provider] - Within 2 Weeks Disposition Disposition (needs filled in before D/C Order can be placed): Home, Self Care
--- NOTE | 2022-08-31 10:06 | DS.PCM_ITS ---
Providers Date of Admission: 08/27/22 Date of Discharge: 08/31/22 Primary Care Physician: Dr. Donaldo Larson, DO Consultations 08/27/22 18:28 Consult: Gastroenterology Routine Consulting Provider: [facility] Reason for Consult: gi bleed EMERGENT Consult: No Notified: Yes Date Notified: 08/27/22 Time Notified: 17:31 Method of Notification: Verbal 08/27/22 18:43 Consult: Release And Technical Records Clerk / Pulmonary Medicine Routine Consulting Provider: Pulmonary Medicine [facility] [place] Reason for Consult: icu admission EMERGENT Consult: No Notified: Yes Date Notified: 08/27/22 Time Notified: 18:43 Method of Notification: Text Method of Consult:: In-Person Reason For Visit: LOWER GI BLEED, ANTICOAGULATED Diagnosis Discharge Diagnosis (1) Acute lower GI bleeding: Status: Acute Code(s): K92.2 - Gastrointestinal hemorrhage, unspecified (2) Pseudomembranous colitis: Status: Acute Code(s): A04.72 - Enterocolitis due to Clostridium difficile, not specified as recurrent (3) Anemia: Status: Acute Code(s): D64.9 - Anemia, unspecified Plan 1. Lower gastrointestinal hemorrhage secondary to C. 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 Patient was given extra Coumadin this morning. #3 essential hypertension-patient's blood pressure medicines will be held at this time due to relatively low systolic blood pressure. #4 chronic anxiety disorder-patient is on Ativan and Cymbalta chronically, these will be continued #5 C. difficile colitis-patient will continue on oral vancomycin #6 erosive esophagitis-patient will be transitioned to oral Pepcid #7 acute blood loss anemia secondary to lower gastrointestinal hemorrhage- requiring blood transfusion, H&H will be repeated in the morning Again I discussed the case in length with gastroenterology and critical care today Total clinical time spent addressing the patient's medical issues, reviewing all of his data, and collaborating with patient's care team: 35 minutes Medications at Discharge Home Medications acetaminophen 500 mg tablet 1,000 mg PO Q8H PRN Pain 04/07/21 lorazepam 0.5 mg tablet 0.5 mg PO Q6H PRN Anxiety 04/07/21 metoprolol tartrate 50 mg tablet 50 mg PO BID 05/17/22 duloxetine 60 mg capsule,delayed release 60 mg PO DAILY 08/27/22 melatonin 10 mg disintegrating tablet 20 mg PO QHS SLEEP 08/27/22 psyllium husk 3.4 gram/5.4 gram oral powder (Metamucil) 1 tbsp PO BID SUPPLEMENT 08/27/22 warfarin 5 mg tablet 6.5 mg PO DAILY 08/27/22 enoxaparin 100 mg/mL subcutaneous syringe 100 mg subcut BID #8 mL 08/31/22 famotidine 40 mg tablet (Pepcid) 40 mg PO BID #60 tabs 08/31/22 vancomycin 25 mg/mL oral solution (Firvanq) 125 mg (5 mL) PO .QID #150 mL 08/31/22 warfarin 1 mg tablet 1 mg PO DAILY 09/01/22 Hospital Course Operations None Procedures Blood transfusion and EGD Summary of Care Provided Minutes Spent on Discharge: 32 Hospital Course: This 77-year-old white male was seen in the emergency room at [facility] with chief complaint of abdominal cramping with red rectal bleeding. Work-up in the emergency room revealed a hemoglobin of 12.9, INR was 3.1 and chemistry panel was largely unremarkable. Patient's blood pressure was low in the emergency room, because of this low blood pressure was felt he was more appropriate for admission to ICU. Patient was admitted to ICU, vitamin K was administered, and blood transfusions were given to the patient. Patient was seen in consultation by gastroenterology and critical care, gastroenterology performed an EGD and a colonoscope, there was noted to be esophagitis without bleeding, there was also noted to be colitis in keeping with C. difficile colitis. Patient's cultures however did not identify C. difficile toxin or antigens, gastroenterology nevertheless felt that the patient did have C. difficile colitis. Patient improved during his hospitalization. On 08/31/2022, patient was seen and examined: On examination he appeared in good health and spirits. Vital signs as documented. Skin warm and dry and without overt rashes. Neck without JVD, neck was supple, trachea midline, thyroid was normal. Lungs clear bilaterally, normal air movement was noted. Heart exam notable for regular rhythm, normal sounds and absence of murmurs, rubs or gallops. Abdomen unremarkable and without evidence of organomegaly, masses, or abdominal aortic enlargement. Bowel sounds are present, abdomen is not distended. Extremities nonedematous, no cyanosis was noted, no clubbing was noted. Neuro: Cranial nerves II through XII are grossly intact, no focal motor deficits were noted, sensation to light touch and pinprick intact, motor exam 5/5 throughout. Psych: Patient is alert and oriented x3, he does not appear anxious or depressed, he does not appear agitated. Patient was discharged in stable condition on 08/31/2022. Weight / BMI Weight Weight: 97.1 kg Body Mass Index (BMI) 27.4 ABG / Lab / Microbiology Data Result Diagrams: 08/31/22 03:38 08/31/22 03:38 Laboratory: Laboratory Results - last 24 hr 08/31/22 03:38: WBC 8.1, RBC 2.59 L, Hgb 7.8 L, Hct 24.3 L, MCV 93.8, MCH 30.1, MCHC 32.1, RDW Std Deviation 45.8 H, RDW Coeff of Rich 13.4, Plt Count 178, MPV 9.9, Immature Gran % (Auto) 0.400, Neut % (Auto) 69.7, Lymph % (Auto) 10.1 L, [place] % (Auto) 17.1 H, Eos % (Auto) 2.3, Baso % (Auto) 0.4, Absolute Neuts (auto) 5.7, Absolute Lymphs (auto) 0.82 L, Nucleated RBC % 0 08/31/22 03:38: PT 18.0 H, INR 1.5 08/31/22 03:38: Sodium 141, Potassium 3.1 L, Chloride 112 H, Carbon Dioxide 24.0, Anion Gap 5, BUN 10, Creatinine 0.71, Estim Creat Clear Calc 71.93, Est GFR (MDRD) Af Amer 137, Est GFR (MDRD) Non-Af 114, BUN/Creatinine Ratio 14.0, Glucose 94, Calcium 7.5 L, Magnesium 1.6 08/31/22 03:38: Phosphorus 1.9 L Microbiology: Microbiology 08/29/22 16:35 Stool Enteric Bacteriology - Final 08/29/22 16:15 Stool C. difficile DNA Amplification - Final 08/29/22 16:35 Stool Stool Lactoferrin - Final D/C Instructions Discharge Diet: No restrictions Weight Bearing Status: Full weight bearing Meaningful Use Info Meaningful Use Diagnoses (Choose all that apply): None applicable Discharge Plan Admission Admit Date/Time: 08/27/22 17:28 Primary Reason for Your Visit: lower GI bleed, c.difficle colitis Attending Provider: Donaldo Kincaid Primary Care Provider: Donaldo Larson Consulting Providers: Marty Arevalo ; Jose De Jesus Betts ; Boogie Medellin ; Tenzin Moser ; Melissa Altman CH[employer]ST[employer] ZIPPER SETTER Instructions Additional Instructions / Restrictions: INR daily starting tomorrow morning, you may stop your injectable Lovenox when your INR is above 2.5 Discharge Orders/Prescriptions Prescriptions: New enoxaparin 100 mg/mL Syringe 100 mg subcut BID Qty: 8 0RF Rx Instructions: stop Lovenox when INR is 2.5 or above Firvanq 25 mg/mL Recon Soln 125 mg PO .QID Qty: 150 0RF famotidine [Pepcid] 40 mg tablet 40 mg PO BID Qty: 60 0RF Continued metoprolol tartrate 50 mg tablet 50 mg PO BID warfarin 5 mg tablet 6.5 mg PO DAILY Protocol: Dose Management Condition: Sunday Dose/Route: 6.5 mg Instruction: 6.5 x 1 mg tablets Condition: Sunday Dose/Route: 6.5 mg Instruction: 6.5 x 1 mg tablets Condition: Sunday Dose/Route: 6.5 mg Instruction: 6.5 x 1 mg tablets Condition: Sunday Dose/Route: 6.5 mg Instruction: 6.5 x 1 mg tablets Condition: Dose/Route: 6.5 mg Instruction: 6.5 x 1 mg tablets Condition: Sunday Dose/Route: 6.5 mg Instruction: 6.5 x 1 mg tablets Condition: Sunday Dose/Route: 6.5 mg Instruction: 6.5 x 1 mg tablets Protocol Text: Adjustment Start Date: Sunday09/01/22 INR Value: 1.7 INR Date: 09/01/22 Recheck Date: 09/04/22 duloxetine 60 mg capsule,delayed release(DR/EC) 60 mg PO DAILY Metamucil 3.4 gram/5.4 gram Powder 1 tbsp PO BID melatonin 10 mg Tablet,Disintegrating 20 mg PO QHS acetaminophen 500 mg tablet 1,000 mg PO Q8H PRN (Reason: Pain) lorazepam 0.5 mg tablet 0.5 mg PO Q6H PRN (Reason: Anxiety) No Action warfarin 1 mg tablet 1 mg PO DAILY Protocol: Dose Management Condition: Sunday Dose/Route: 6.5 mg Instruction: 6.5 x 1 mg tablets Condition: Sunday Dose/Route: 6.5 mg Instruction: 6.5 x 1 mg tablets Condition: Sunday Dose/Route: 6.5 mg Instruction: 6.5 x 1 mg tablets Condition: Sunday Dose/Route: 6.5 mg Instruction: 6.5 x 1 mg tablets Condition: Dose/Route: 6.5 mg Instruction: 6.5 x 1 mg tablets Condition: Sunday Dose/Route: 6.5 mg Instruction: 6.5 x 1 mg tablets Condition: Sunday Dose/Route: 6.5 mg Instruction: 6.5 x 1 mg tablets Protocol Text: Adjustment Start Date: Sunday09/01/22 INR Value: 1.7 INR Date: 09/01/22 Recheck Date: 09/04/22 Referrals / Follow Up: Donaldo Larson DO [Primary Care Provider] - Within 2 Weeks Disposition Disposition (needs filled in before D/C Order can be placed): Home, Self Care Charges/Coding Visit Charges Inpatient E&M: 52909 Disch Hosp >30min
[2022-08-31] MEDS: Enoxaparin 100 MG/ML Syringe SC (10:21)
== END 2022-08-31 10:50 | disposition home or self-care (01) | DRG 377 ==
LOC: ED 16:52 → ICU 18:23
PROVIDERS: Family Medicine; Internal Medicine Critical Care Medicine; Internal Medicine Gastroenterology; Admitting Provider Internal Medicine; Emergency Provider Emergency Medicine; PCP Family Medicine; Visit Provider Internal Medicine
PROC: 0DJD8ZZ Inspection of Lower Intestinal Tract, Via Natural or Artificial Opening Endoscopic (ICD-10-PCS; CPT 45378; principal; 2022-08-29 15:10)
DX: K55.21 Angiodysplasia of colon with hemorrhage (principal); K20.81 Other esophagitis with bleeding; A04.72 Enterocolitis due to Clostridium difficile, not specified as recurrent; D62 Acute posthemorrhagic anemia; I95.9 Hypotension, unspecified; E78.00 Pure hypercholesterolemia, unspecified; I10 Essential (primary) hypertension; F41.9 Anxiety disorder, unspecified; I08.8 Other rheumatic multiple valve diseases; Z79.01 Long term (current) use of anticoagulants; Z87.891 Personal history of nicotine dependence; Z95.2 Presence of prosthetic heart valve
CPT/HCPCS: 80048; 80053; 83630; 83735; 84100; 85014; 85018; 85025; 85610; 86850; 86900; 86901; 86920; 86922; 87177; 87209; 87493; 87506; 88305; 99283; J7030; J7040; J7120; P9016; P9017; A4216; J2405; J3490

== ENCOUNTER 2022-09-01 16:05 | Outpatient (RCR) | payer MEDICARE, OTHER, SELFPAY ==
[2022-08-03 16:52] LABS: Prothrombin Time (Protime)PT. 22.6 SECONDS (11.7-14.9)
[2022-08-11 16:47] LABS: International Normalized Ratio 2.4; Prothrombin Time (Protime)PT. 26.1 SECONDS (11.7-14.9)
[2022-09-01 16:29] LABS: International Normalized Ratio 1.7; Prothrombin Time (Protime)PT. 19.5 SECONDS (11.7-14.9)
== END 2022-09-01 21:14 | disposition home or self-care (01) ==
LOC: LAB 16:05
PROVIDERS: PCP Family Medicine; Referring Provider Internal Medicine Cardiovascular Disease; Visit Provider Internal Medicine Cardiovascular Disease
DX: Z79.01 Long term (current) use of anticoagulants (principal); Z95.2 Presence of prosthetic heart valve
CPT/HCPCS: 36415; 85610

== ENCOUNTER 2022-09-04 12:53 | Outpatient (RCR) | payer MEDICARE, OTHER, SELFPAY ==
[2022-09-04 13:49] LABS: Prothrombin Time (Protime)PT. 22.5 SECONDS (11.7-14.9)
== END 2022-10-01 02:19 | disposition home or self-care (01) ==
LOC: LAB 12:53
PROVIDERS: PCP Family Medicine; Referring Provider Internal Medicine Cardiovascular Disease; Visit Provider Internal Medicine Cardiovascular Disease
DX: Z79.01 Long term (current) use of anticoagulants (principal); Z95.2 Presence of prosthetic heart valve
CPT/HCPCS: 36415; 85610

== ENCOUNTER → 2023-03-22 | Outpatient (CLI) | payer MEDICARE, OTHER, SELFPAY ==
--- NOTE | 2023-03-22 16:08 | RAD_ITS ---
STUDY: X-RAY - LUMBAR SPINE REASON FOR EXAM: Male, 77 years old. LOW BACK PAIN TECHNIQUE: 5 view(s) of the lumbar spine were obtained. COMPARISON: None FINDINGS: Normal lumbar lordosis. There is no substantial scoliosis. There is a normal alignment of the vertebrae. There is multilevel endplate spondylosis of the lumbar vertebrae. There is multi-level degenerative disc disease with multi-level disc space narrowing. Facet hypertrophy in the lower lumbar spine. The soft tissue structures are unremarkable. RAD/L/S Spine Min 4 Views IMPRESSION: Degenerative changes of the spine, as detailed above. MRI may be useful. Electronically Signed: Avi Garcia MD at 22:22 EDT ,
== END | disposition home or self-care (01) ==
LOC: RAD 16:07
PROVIDERS: PCP Family Medicine; Referring Provider Family Medicine; Visit Provider Family Medicine
DX: M54.50 Low back pain, unspecified (principal); G89.29 Other chronic pain
CPT/HCPCS: 72110

== ENCOUNTER 2023-04-25 14:10 | Inpatient (IN) | payer MEDICARE, OTHER, SELFPAY ==
[2023-04-25] VITALS (8 sets, daily range): BP systolic 97–153; BP diastolic 52–87; PULSE 100–104; RESP 16–18; TEMP 36.3–36.9; O2SAT 95–100; BMI 27.3; BMI 61.2
--- NOTE | 2023-04-25 14:28 | EDS_ITS ---
HPI HPI - GI History of Present Illness Chief Complaint: GI Bleed Detail of Chief Complaint: Rectal bleeding Informant: patient Narrative Narrative: Patient presents the emergency department complaint of rectal bleeding that started this morning. Initially just had small amount and then later had a large amount of blood per rectum. No clots. Patient is on Coumadin for history of a mechanical heart valve. Patient thinks his last INR was several months ago. He denies any abdominal pain. He denies fever. He denies rectal pain. He has prior history of partial colectomy due to diverticulitis and colovesic ular fistula. 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 jail current use of anticoagulant Nonrheumatic aortic (valve) insufficiency Nonrheumatic pulmonary valve insufficiency Other intermediate (current) drug therapy Palpitations Panic disorder Pneumaturia Post traumatic stress disorder Pseudomembranous colitis Pure hypercholesterolemia Sigmoid diverticulitis Streptococcal endocarditis Home Medications warfarin 5 mg tablet 5 mg PO DAILY BLOOD THINNER 08/27/22 [History Last Taken 04/24/23] warfarin 1 mg tablet 1.5 mg PO DAILY BLOOD THINNER 09/01/22 [History Last Taken 04/24/23] duloxetine 60 mg capsule,delayed release 60 mg PO DAILY DEPRESSION 04/25/23 [History Last Taken 04/24/23] lorazepam 1 mg tablet 1 mg PO Q6H PRN ANXIETY 04/25/23 [History Last Taken 04/25/23] melatonin 10 mg capsule 20 mg PO QHS SLEEP 04/25/23 [History Last Taken 04/24/23] metoprolol tartrate 50 mg tablet 50 mg PO BID BLOOD PRESSURE 04/25/23 [History Last Taken 04/24/23] Allergy/AdvReac Type Severity Reaction Status Date / Time fentanyl Allergy Severe Other Verified 04/25/23 14:14 levofloxacin AdvReac Severe Passed out Verified 04/25/23 14:12 Family History Father CAD (coronary artery disease) Surgical History H/O pulmonic valve replacement History of colon resection History of herniorrhaphy History of mechanical aortic valve replacement Social History Smoking Status: Former smoker how long ago did patient quit smokin years ago alcohol intake: current alcohol intake frequency: holidays/special occasions only Alcohol type: beer details: social caffeine: Yes Type: coffee Number of servings: 1 ROS ROS ED Review of Systems ROS Unobtainable: other Constitutional Constitutional ED: Reports lethargy; Denies chills, fever(s), sweats or weight loss Eyes Eyes: Denies blurry vision, change in vision or diplopia ENT ENT ED: Denies rhinorrhea or sore throat Cardiovascular Cardiovascular: Denies chest pain, orthopnea or racing heartbeat Respiratory/Chest Respiratory/Chest: Denies cough, dyspnea, dyspnea on exertion, orthopnea or sputum Gastrointestinal Gastrointestinal: Reports other Details: Rectal bleeding ; Denies abdominal pain, diarrhea, nausea or vomiting Genitourinary Genitourinary ED: Denies dysuria, hematuria or urinary frequency Musculoskeletal Musculoskeletal: Denies arthralgias, back pain, myalgias or neck pain Integumentary Denies abscess, Abrasions or rash Neurologic Neurologic: Denies headache(s) or weakness Psychiatric Psychiatric: Denies anxiety, depression or suicidal thoughts Endocrine Endocrinology: Denies polydipsia, polyphagia or polyuria Hematologic/Lymphatic Hematologic/Lymphatic: Denies easy bleeding, easy bruising or lymphadenopathy Allergic/Immunologic Allergic/Immunologic ED: Denies mouth swelling, tongue swelling or urticaria EXAM Physical Exam Const Vital Signs: 04/25/23 14:11 Temperature 97.4 F L Temperature Source Temporal Pulse Rate 101 H Respiratory Rate 18 Blood Pressure 153/72 H Blood Pressure Mean 99 Pulse Ox 95 Oxygen Delivery Method Room Air Positive well nourished and well developed General Appearance ED: well developed and NAD HEENT Reports TM's clear and moist mucous membranes normocephalic and atraumatic; Negative for trauma or tenderness Tympanic Membrane ED: Yes TM's clear Eyes PERRL and EOMs intact bilaterally General Eye ED: Negative for pale conjunctiva or scleral icterus Neck no lymphadenopathy, supple and no JVD General: Negative for tenderness Chest Wall inspection of chest normal and palpation of chest normal Chest: Negative for tenderness Resp normal respiratory effort and clear to auscultation bilaterally Effort and Inspection: Negative for respiratory distress or pain with movement Auscultation: Negative for rhonchi, wheezes or diminished lung sounds Cardio regular rate, regular rhythm, S1 normal heart sound, S2 normal heart sound and no murmurs Peripheral Pulses: pulses 2+ throughout GI normal to inspection, nondistended, normoactive bowel sounds, soft to palpation, non-tender, non-distended and no masses GI Narrative: Rectal exam performed shows no evidence of fissures or hemorrhoids. Patient had maroon-colored stool. No rectal masses palpated. Back/Spine no CVA tenderness and no thoracic nor lumbar tenderness Extremity normal to inspection General Extremety ED: Negative for edema General Extremity: Negative for edema Neuro oriented x3, CN's II-XII intact bilaterally, no sensory deficits noted and gait normal Sensorium / Orientation: awake, alert, oriented to person, oriented to place and oriented to time Motor Exam: strength 5/5 throughout and strength abnormal Psych mental status grossly normal Skin no rashes or lesions noted and no wounds MDM MDM MDM Narrative Medical decision making narrative: Patient presents with lower GI bleed without abdominal pain. IV line established. Type and screen ordered. CBC with differential obtained for white count 10.6 with hemoglobin 8.2 and platelet count of 338. Chemistries unremarkable. BUN was 25 and creatinine 1.07. INR was 2.7. Case discussed with hospitalist will evaluate patient for admission. We are unable to reverse patient's Coumadin as he has history of mechanical heart valve. Hospitalist will discuss case with patient's information systems administrator. Lab Data Attestation: I reviewed the patient's lab results. Labs: Laboratory Results - last 24 hr 04/25/23 04/25/23 14:23 14:50 WBC 10.6 RBC 3.68 L Hgb 8.2 L Hct 28.2 L MCV 76.6 L MCH 22.3 L MCHC 29.1 L RDW Std Deviation 53.3 H RDW Coeff of Rich 19.4 H Plt Count 338 MPV 9.4 Immature Gran % (Auto) 0.500 Neut % (Auto) 80.2 H Lymph % (Auto) 7.8 L [place] % (Auto) 9.6 Eos % (Auto) 1.0 Baso % (Auto) 0.9 Absolute Neuts (auto) 8.5 H Absolute Lymphs (auto) 0.82 L Nucleated RBC % 0 PT 29.2 H INR 2.7 Sodium 138 Potassium 4.4 Chloride 109 H Carbon Dioxide 28.0 Anion Gap 1 L BUN 25 H Creatinine 1.07 Estim Creat Clear Calc 66.15 Est GFR (MDRD) Af Amer 86 Est GFR (MDRD) Non-Af 71 BUN/Creatinine Ratio 23.4 H Glucose 114 H Lactic Acid 1.4 Calcium 8.5 Blood Type AB POSITIVE Antibody Screen NEGATIVE Discharge Plan Triage Chief Complaint: GI Bleed ED Provider: Karla Kraft Dx/Rx/DC Orders Clinical Impression: History of heart valve replacement with mechanical valve, Anemia, Acute lower GI bleeding Prescriptions: No Action warfarin 5 mg tablet 5 mg PO DAILY Protocol: Dose Management Condition: Sunday Dose/Route: 6.5 mg Instruction: 6.5 x 1 mg tablets Condition: Sunday Dose/Route: 6.5 mg Instruction: 6.5 x 1 mg tablets Condition: Sunday Dose/Route: 6.5 mg Instruction: 6.5 x 1 mg tablets Condition: Sunday Dose/Route: 6.5 mg Instruction: 6.5 x 1 mg tablets Condition: Dose/Route: 6.5 mg Instruction: 6.5 x 1 mg tablets Condition: Sunday Dose/Route: 6.5 mg Instruction: 6.5 x 1 mg tablets Condition: Sunday Dose/Route: 6.5 mg Instruction: 6.5 x 1 mg tablets Protocol Text: Adjustment Start Date: Sunday09/04/22 INR Value: 2.0 INR Date: 09/04/22 Recheck Date: 09/11/22 Rx Instructions: TAKE ONE AND A HALF 1MG TABLETS AND ONE 5MG TABLET TOGETHER ONCE DAILY FOR A TOTAL DAILY DOSE OF 6.5MG. lorazepam 1 mg tablet 1 mg PO Q6H PRN (Reason: ANXIETY ) metoprolol tartrate 50 mg tablet 50 mg PO BID Rx Instructions: TAKE 1 TABLET BY MOUTH TWICE A DAY duloxetine 60 mg capsule,delayed release(DR/EC) 60 mg PO DAILY melatonin 10 mg capsule 20 mg PO QHS warfarin 1 mg tablet 1.5 mg PO DAILY Protocol: Dose Management Condition: Sunday Dose/Route: 6.5 mg Instruction: 6.5 x 1 mg tablets Condition: Sunday Dose/Route: 6.5 mg Instruction: 6.5 x 1 mg tablets Condition: Sunday Dose/Route: 6.5 mg Instruction: 6.5 x 1 mg tablets Condition: Sunday Dose/Route: 6.5 mg Instruction: 6.5 x 1 mg tablets Condition: Dose/Route: 6.5 mg Instruction: 6.5 x 1 mg tablets Condition: Sunday Dose/Route: 6.5 mg Instruction: 6.5 x 1 mg tablets Condition: Sunday Dose/Route: 6.5 mg Instruction: 6.5 x 1 mg tablets Protocol Text: Adjustment Start Date: Sunday09/04/22 INR Value: 2.0 INR Date: 09/04/22 Recheck Date: 09/11/22 Rx Instructions: TAKE ONE AND A HALF 1MG TABLETS AND ONE 5MG TABLET TOGETHER ONCE DAILY FOR A TOTAL DAILY DOSE OF 6.5MG. Primary Care Provider: Donaldo Larson Referrals: Donaldo Larson DO [Primary Care Provider] - Disposition Disposition: Acute Care [facility]
[2023-04-25] MEDS: 0.9% Normal Saline (1000mL) 1,000 ML 125 ML IV (14:42)
[2023-04-25 14:53] LABS: Absolute Lymphocyte Count 0.82 X10^3/uL (0.83-4.51); Absolute Neutrophil Count 8.5 X10^3/uL (2.0-7.7); Basophil# 0.09 X10^3/uL; Basophil% 0.9 % (0-1); Eosinophil# 0.11 X10^3/uL; Hematocrit 28.2 % (40-54); Hemoglobin 8.2 g/dL (13.0-16.5); Lymphocyte # 0.82 X10^3/ul (0.83-4.51); Lymphocyte % 7.8 % (19-41); Mean Corp Hgb Conc 29.1 g/dL (32-36); Mean Corpuscular Hgb 22.3 pg (27.0-32.0); Mean Corpuscular Volume 76.6 fL (80-94); Mean Platelet Vol. 9.4 fl (6.2-12.0); Monocyte# 1.02 X10^3/uL; Monocyte% 9.6 % (0-10); NRBC Flagged by Analyzer 0 % (0-5); Neutrophil # 8.49 X10^3/uL (2.7-7.7); Neutrophil % 80.2 % (47-70); Platelet Count 338 K/mm3 (150-450); RBC Distribution Width CV 19.4 % (11.6-14.6); RBC Distribution Width SD 53.3 fl (35.1-43.9); Red Blood Count 3.68 M/mm3 (4.6-6.2); White Blood Count 10.6 K/mm3 (4.4-11.0)
[2023-04-25 15:05] LABS: Anion Gap 1 (5-15); BUN 25 mg/dL (7-18); BUN/Creat Ratio 23.4 RATIO (10-20); Calcium,Total 8.5 mg/dL (8.5-10.1); Chloride 109 mmol/L (98-107); Creatinine, Serum 1.07 mg/dL (0.70-1.30); EST Glomerular Filtration Rate 71 mL/min (>60); Est Glom Filt Rate - Afr Amer 86 mL/min (>60); Estimated Creatinine Clearance 66.15 ml/min; Glucose 114 mg/dL (74-106); Potassium 4.4 mmol/L (3.5-5.1); Sodium Level 138 mmol/L (136-145)
[2023-04-25 15:09] LABS: International Normalized Ratio 2.7; Prothrombin Time (Protime)PT. 29.2 SECONDS (11.7-14.9)
[2023-04-25 15:24] LABS: Lactic Acid 1.4 mmol/L (0.4-1.9)
--- NOTE | 2023-04-25 15:32 | NURSING ---
DR JAYDE RODRIGUEZ
--- NOTE | 2023-04-25 15:58 | NURSING ---
MED SURG DONOHUE LOWER GI BLEED, COUMIDIN COAGULOPATHY, ANEMIA
--- NOTE | 2023-04-25 16:20 | HP.PCM.HOS_ITS ---
HPI - General General Date of Admission: 04/25/23 Date of Service: 04/25/23 Chief Complaint: Blood per rectum HPI Narrative TRAMAINE MAST, is a 78-year-old male history of anxiety, hypertension, pulmonic valve and mechanical aortic valve on coumadin, PTSD, paroxysmal atrial fibrillation who presented to [facility] 04/25/2023 for rectal bleeding that started in the morning. Initially small amount of bleeding and subsequently had a large amount per rectum. He is on Coumadin due to his history of mechanical heart valve. 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 In the ED he had a hemoglobin of 8.2, earlier in the year hemoglobin was similar however he did have maroon stools on rectal exam and given his mechanical valves and concern for lower GI bleed hospitalist contacted for admission. Patient endorses he was in his usual health until 5 AM when he had some blood with stool and this happened every 5-6 hours until right before he came to the ED when he had a large dark red almost black bowel movement. Denies any abdominal pain at present, occasionally has diarrhea but denies any changes in that recently. Only other complaint is some chronic low back pain. Denies any other acute complaints. 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 current use of anticoagulant Nonrheumatic aortic (valve) insufficiency Nonrheumatic pulmonary valve insufficiency Other halfway (current) drug therapy Palpitations Panic disorder Pneumaturia Post traumatic stress disorder Pseudomembranous colitis Pure hypercholesterolemia Sigmoid diverticulitis Streptococcal endocarditis Home Medications warfarin 5 mg tablet 5 mg PO DAILY BLOOD THINNER 08/27/22 [History Last Taken 04/24/23] warfarin 1 mg tablet 1.5 mg PO DAILY BLOOD THINNER 09/01/22 [History Last Taken 04/24/23] duloxetine 60 mg capsule,delayed release 60 mg PO DAILY DEPRESSION 04/25/23 [History Last Taken 04/24/23] lorazepam 1 mg tablet 1 mg PO Q6H PRN ANXIETY 04/25/23 [History Last Taken 04/25/23] melatonin 10 mg capsule 20 mg PO QHS SLEEP 04/25/23 [History Last Taken 04/24/23] metoprolol tartrate 50 mg tablet 50 mg PO BID BLOOD PRESSURE 04/25/23 [History Last Taken 04/24/23] Allergy/AdvReac Type Severity Reaction Status Date / Time fentanyl Allergy Severe Other Verified 04/25/23 14:14 levofloxacin AdvReac Severe Passed out Verified 04/25/23 14:12 Family History Father CAD (coronary artery disease) Surgical History H/O pulmonic valve replacement History of colon resection History of herniorrhaphy History of mechanical aortic valve replacement Social History Smoking Status: Former smoker how long ago did patient quit smokin years ago alcohol intake: current alcohol intake frequency: holidays/special occasions only Alcohol type: beer details: social caffeine: Yes Type: coffee Number of servings: 1 ROS ROS Narrative General: Denies fever/chills HENT: Denies headache, denies stuffy nose, denies sore throat EYES: Denies changes in vision Resp: Denies cough, denies shortness of breath Cardiac: Denies chest pain GI: Denies abdominal pain, did have bleeding per rectum : Denies changes in urination Extremity: Has some chronic lower extremity swelling MSK: Denies weakness Neuro: Denies any numbness/tingling Heme: Denies any bleeding or bruising Skin: Denies rashes Psychiatric: No complaints voiced Vital Signs Vital Signs Vital Signs: 04/25/23 14:11 Temperature 97.4 F L Temperature Source Temporal Pulse Rate 101 H Respiratory Rate 18 Blood Pressure 153/72 H Blood Pressure Mean 99 Pulse Ox 95 Oxygen Delivery Method Room Air Weight Weight: 96.842 kg Body Mass Index (BMI) 27.3 Physical Exam Narrative General: Alert, oriented, no apparent distress HEENT: Atraumatic, normocephalic Eyes: Anicteric, normal conjunctiva, extraocular movements grossly intact Neck: Supple Respiratory: Clear to auscultation bilaterally, normal respiratory effort Cardiovascular: Regular rate and rhythm GI: Soft, nontender, nondistended, reducible midline hernia Extremities: No edema Musculoskeletal: 1+ lower extremity edema bilaterally Neuro: No overt focal neurological deficits Skin: No rashes appreciated Psych: Cooperative Results Lab / Micro Data 04/25/23 14:23 04/25/23 14:23 Labs: Laboratory Results - last 24 hr 04/25/23 14:23: WBC 10.6, RBC 3.68 L, Hgb 8.2 L, Hct 28.2 L, MCV 76.6 L, MCH 22.3 L, MCHC 29.1 L, RDW Std Deviation 53.3 H, RDW Coeff of Rich 19.4 H, Plt Count 338, MPV 9.4, Immature Gran % (Auto) 0.500, Neut % (Auto) 80.2 H, Lymph % (Auto) 7.8 L, [place] % (Auto) 9.6, Eos % (Auto) 1.0, Baso % (Auto) 0.9, Absolute Neuts (auto) 8.5 H, Absolute Lymphs (auto) 0.82 L, Nucleated RBC % 0, PT 29.2 H, INR 2.7, Sodium 138, Potassium 4.4, Chloride 109 H, Carbon Dioxide 28.0, Anion Gap 1 L, BUN 25 H, Creatinine 1.07, Estim Creat Clear Calc 66.15, Est GFR (MDRD) Af Amer 86, Est GFR (MDRD) Non-Af 71, BUN/Creatinine Ratio 23.4 H, Glucose 114 H , Lactic Acid 1.4, Calcium 8.5 04/25/23 14:50: Blood Type AB POSITIVE, Antibody Screen NEGATIVE Assessment & Plan Assessment/Plan (1) Gastrointestinal bleed: (2) History of endocarditis: (3) H/O pulmonic valve replacement: (4) History of mechanical aortic valve replacement: (5) Paroxysmal atrial fibrillation: (6) Post traumatic stress disorder: PLAN: Plan #Bright red blood per rectum -Unclear upper versus lower. Does have slight elevation in BUN and given blood was becoming darker may be upper in nature -Was admitted 08/2022 for acute GI bleed but upper and lower endoscopies showed angiodysplasia in cecum and following it pseudomembranous colitis which were presumed to be the culprits -Discussed with GI, ordered a CTA to see if source could be localized -Patient started on Protonix drip, octreotide drip, Zosyn -Trend H&H -We will type and cross -GI consult -Given high risk of clotting with his mechanical valve and relative stability we will hold off on reversal of INR but will hold his Coumadin and monitor closely #History of pulmonic valve replacement and mechanical aortic valve -Patient is on Coumadin, INR 2.7 -Once and dips below therapeutic range may need heparin drip -Monitor daily INRs #Paroxysmal atrial fibrillation -Therapeutic on Coumadin at present with INR 2.7 -Continue beta-edith #Depression -Continue duloxetine #DVT ppx: Presently therapeutic on Coumadin, will need SCDs once patient below threshold Chantale Chang MD Time spent in the patient's overall evaluation,decision-making process, review of diagnostic data, adjustment of management, discussion with other providers, nursing nursing and ancillary staff involved in patient's care documentation, 75 minutes Charges/Coding Visit Charges Inpatient E&M: 29754 Init Hosp L3
--- NOTE | 2023-04-25 16:25 | CT_ITS ---
EXAM: CT ANGIOGRAPHY ABDOMEN AND PELVIS WITHOUT AND WITH INTRAVENOUS CONTRAST CLINICAL INDICATION: GIB TECHNIQUE: Helically acquired angiography images were obtained of the abdomen and pelvis without and with intravenous contrast. This CT exam was performed using one or more of the following dose reduction techniques: automated exposure control, adjustment of the mA and/or kV according to patient size, and/or use of iterative reconstruction technique. MIP reconstructed images were created and reviewed. CONTRAST: IV 100mL Isovue-300 RADIATION DOSE: CTDIvol = 27.50 mGy, DLP = 991.30 mGy-cm COMPARISON: No relevant prior studies available. FINDINGS: VASCULATURE: AORTA: Atherosclerosis of the abdominal aorta and iliac arteries. Normal caliber abdominal aorta. No dissection. CELIAC TRUNK AND MESENTERIC ARTERIES: No acute findings. No occlusion or significant stenosis. No dissection. RENAL ARTERIES: No acute findings. No occlusion or significant stenosis. No dissection. ILIAC ARTERIES: No acute findings. No occlusion or significant stenosis. No dissection. LOWER THORAX: Moderate volume right pleural effusion. No cardiomegaly. ABDOMEN: LIVER: Unremarkable. Homogeneous. No focal mass. GALLBLADDER AND BILE DUCTS: Cholelithiasis. No gallbladder distention or wall edema. No intra- or extrahepatic biliary ductal dilation. PANCREAS: Unremarkable. No focal cystic or solid mass. SPLEEN: Unremarkable. Normal size without focal cystic or solid mass. ADRENALS: Unremarkable. No nodules. KIDNEYS AND URETERS: Nonobstructing left renal calculi, punctate. Small cortical scar versus AML of the left kidney, doubtful significance. Simple right renal cysts. No required imaging follow-up needed given high likelihood of benign nature. STOMACH AND BOWEL: The proximal colon is mildly distended with low to intermediate density fluid. Along the right and posterior colonic wall (image [id number]), there is hyperdensity some amorphous features on image 82, suggesting active GI bleeding. No focal inflammatory change. Surgical anastomosis of rectosigmoid colon as well as small bowel loops. PELVIS: APPENDIX: Appendix is not seen but no secondary signs of appendicitis. BLADDER: Unremarkable. REPRODUCTIVE: Unremarkable as visualized. No mass. ABDOMEN and PELVIS: INTRAPERITONEAL SPACE: Periumbilical abdominal wall hernia containing small bowel is seen on image 89 of series 2. BONES/JOINTS: Degenerative changes of the lumbar spine. No suspicious lytic or blastic abnormality. SOFT TISSUES: Unremarkable. No discrete abdominal or pelvic wall hernia. LYMPH NODES: Unremarkable. No enlarged lymph nodes. CT/CTA Abd/Pelvis W/WO Contrast IMPRESSION: 1. Active GI bleeding of the right colon/cecum. 2. Moderate volume right pleural effusion. 3. Periumbilical abdominal wall hernia containing small bowel. Electronically Signed: Benny Diaz MD (Brooks) at 17:20 EST Reading Location ID and State: [facility] / [place] , Service support ,
--- NOTE | 2023-04-25 18:13 | EX.PCM.CON.G ---
HPI Consult Data Date of Consult: 04/25/23 HPI Narrative Reason for Consultation: GI bleed HPI Narrative: TRAMAINE MAST, is a 78 M who presents with a large amount of rectal bleeding several times in the past hour started all of a sudden.? No abdominal pain, nausea, vomiting, syncope or near syncope.? He is a little lightheaded, but he attributes that to a panic attack he is having because he is in the hospital.? He states he has medical PTSD for multiple reasons and hates being in the hospital but knows he needs to be here because he is on Coumadin for a titanium heart valve.? He states his aortic valve was replaced and due to the nikolai 1 being damaged from bacterial endocarditis and he has been on Coumadin for years as a result.? He is had partial colectomy for recurrent diverticulitis in the past and no other abdominal surgeries.? He has a chronic abdominal hernia that is not bothering him as far as pain, nor is it any different. I saw him approximately 8 to 9 months ago for lower GI bleeding. He was discovered to have severe ischemic colitis on colonoscopy. This is similar to when he presented back then but he had less abdominal pain this time. CTA was ordered in the ED that displayed Active GI bleeding of the right colon/cecum. His hemoglobin has decreased down to 7.9. I started him on a PPI drip and octreotide drip. If still remains 7.9 from 11. He is not currently bleeding at this time. [facility] Medical History (Updated 04/26/23 @ 18:[address] 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 Palpitations Panic disorder Pneumaturia Post traumatic stress disorder Pseudomembranous colitis Pure hypercholesterolemia Scarlet fever Sigmoid diverticulitis Streptococcal endocarditis Home Medications warfarin 5 mg tablet 5 mg PO DAILY BLOOD THINNER 08/27/22 [History Last Taken 04/24/23] warfarin 1 mg tablet 1.5 mg PO DAILY BLOOD THINNER 09/01/22 [History Last Taken 04/24/23] duloxetine 60 mg capsule,delayed release 60 mg PO DAILY DEPRESSION 04/25/23 [History Last Taken 04/24/23] lorazepam 1 mg tablet 1 mg PO Q6H PRN ANXIETY 04/25/23 [History Last Taken 04/25/23] melatonin 10 mg capsule 20 mg PO QHS SLEEP 04/25/23 [History Last Taken 04/24/23] metoprolol tartrate 50 mg tablet 50 mg PO BID BLOOD PRESSURE 04/25/23 [History Last Taken 04/24/23] Allergy/AdvReac Type Severity Reaction Status Date / Time fentanyl Allergy Severe Other Verified 04/25/23 14:14 levofloxacin AdvReac Severe Passed out Verified 04/25/23 14:12 Family History Father CAD (coronary artery disease) Surgical History (Updated 04/25/23 @ 15:[address] Karla Kraft, DO) H/O pulmonic valve replacement History of colon resection History of herniorrhaphy History of mechanical aortic valve replacement Social History Smoking Status: Former smoker how long ago did patient quit smokin years ago alcohol intake: current alcohol intake frequency: holidays/special occasions only Alcohol type: beer details: social caffeine: Yes Type: coffee Number of servings: 1 ROS ROS Narrative General: Denies fever/chills HENT: Denies headache, denies stuffy nose, denies sore throat EYES: Denies changes in vision Resp: Denies cough, denies shortness of breath Cardiac: Denies chest pain GI: Denies abdominal pain, did have bleeding per rectum : Denies changes in urination Extremity: Has some chronic lower extremity swelling MSK: Denies weakness Neuro: Denies any numbness/tingling Heme: Denies any bleeding or bruising Skin: Denies rashes Psychiatric: No complaints voiced Physical Exam Narrative Seen and examined. Patient admitted with rectal bleed bright red since yesterday. Physical exam General: Alert, Oriented x3, Cooperative HEENT: Atraumatic, PERRLA, EOMI, Normocephalic Oral: No Gingival or Mucosal Lesions/ Ulcerations Neck: Supple, No JVD, Negative Carotid Bruits Lungs: Air entry diminished in bilateral lung bases. No crepitation/rhonchi Cardiovascular: Regular rate, Regular Rhythm, Normal S1, Normal S2, mechanical aortic valve click Abdomen: Bowel Sounds Present, Soft, Non Tender, Non-Distended : No renal angle tenderness. No suprapubic tenderness. Extremities: No edema, Capillary Refill Less than 3 Seconds Skin: No rashes, No breakdown Musculoskeletal: No Tenderness to Palpation of Joints or Extremities. ROM full and intact. Neurological: Cranial nerves II-XII grossly intact, DTR 2+/4. No acute focal neurological deficit. Psych/Mental Status: Normal Affect, Appropriate. Lab / Micro Data 04/26/23 12:51 04/26/23 04:45 Labs: Laboratory Results - last 24 hr 04/25/23 14:50: Crossmatch See Detail 04/25/23 14:50: Crossmatch See Detail 04/25/23 19:00: Sodium 140, Potassium 3.9, Chloride 111 H, Carbon Dioxide 27.0, Anion Gap 2 L, BUN 22 H, Creatinine 0.96, Estim Creat Clear Calc 69.61, Est GFR (MDRD) Af Amer 97, Est GFR (MDRD) Non-Af 80, BUN/Creatinine Ratio 22.9 H, Glucose 107 H, Calcium 8.0 L 04/25/23 20:48: WBC 13.1 H, RBC 3.29 L, Hgb 7.3 L, Hct 25.1 L, MCV 76.3 L, MCH 22.2 L, MCHC 29.1 L, RDW Std Deviation 53.8 H, RDW Coeff of Rich 19.4 H, Plt Count 342, MPV 9.8 04/26/23 04:45: WBC 13.1 H, RBC 3.25 L, Hgb 7.9 L, Hct 25.9 L, MCV 79.7 L, MCH 24.3 L, MCHC 30.5 L, RDW Std Deviation 58.4 H, RDW Coeff of Rich 20.0 H, Plt Count 287, MPV 9.4, Immature Gran % (Auto) 0.400, Neut % (Auto) 76.9 H, Lymph % (Auto) 9.6 L, [place] % (Auto) 11.3 H, Eos % (Auto) 1.1, Baso % (Auto) 0.7, Absolute Neuts (auto) 10.0 H, Absolute Lymphs (auto) 1.26, Nucleated RBC % 0, PT 29.1 H, INR 2.7, Sodium 140, Potassium 4.0, Chloride 110 H, Carbon Dioxide 23.0, Anion Gap 7, BUN 19 H, Creatinine 1.01, Estim Creat Clear Calc 66.16, Est GFR (MDRD) Af Amer 92, Est GFR (MDRD) Non-Af 76, BUN/Creatinine Ratio 18.8, Glucose 151 H, Calcium 7.6 L, Total Bilirubin 1.20 H, AST 21, ALT 26, Alkaline Phosphatase 98, Total Protein 6.3 L, Albumin 2.9 L, Globulin 3.4, Albumin/Globulin Ratio 0.9 04/26/23 09:31: Hgb 7.8 L 04/26/23 12:51: Hgb 7.9 L Assessment & Plan Assessment/Plan (1) Acute lower GI bleeding: PLAN: Lower GI bleeding secondary to angiodysplasia in the cecum and 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 The anastamosis from previous sigmoid resection was normal without stigmata of bleeding. He does not have any other diverticular disease that was seen on previous colonoscopy. Recommend colonoscopy tomorrow. He was explained alternatives, risk, benefits including outstanding bleeding, infection, sepsis, perforation, need for emergent surgery and . He will have an ASA of 3. (2) Pseudomembranous colitis: PLAN: Resolved (3) Anemia: QUALIFIERS: Anemia type: iron deficiency Iron deficiency anemia type: unspecified iron deficiency Qualified Code(s): D50.9 - Iron deficiency anemia, unspecified PLAN: I would recommend to check iron studies and give iron transfusions if ferritin <50 or iron < 50 PLAN: Plan Monitor hemoglobin. Outpatient capsule study to look for any other sources of Gi bleeding in the small bowel. Charges/Coding Visit Charges Inpatient E&M: 78882 Init Hosp L3
[2023-04-25 19:29] LABS: Anion Gap 2 (5-15); BUN 22 mg/dL (7-18); BUN/Creat Ratio 22.9 RATIO (10-20); Chloride 111 mmol/L (98-107); Creatinine, Serum 0.96 mg/dL (0.70-1.30); EST Glomerular Filtration Rate 80 mL/min (>60); Est Glom Filt Rate - Afr Amer 97 mL/min (>60); Estimated Creatinine Clearance 69.61 ml/min; Glucose 107 mg/dL (74-106); Potassium 3.9 mmol/L (3.5-5.1); Sodium Level 140 mmol/L (136-145)
--- NOTE | 2023-04-25 20:17 | NURSING ---
1899 meds started late due to needing additional IV site and pt stating that he needs time in the bathroom.
[2023-04-25] MEDS: Pantoprazole Sodium 80 MG in 0.9% Normal Saline (50mL Bag) 15 ML 420 MG IV BOLUS (20:31)
[2023-04-25] MEDS: 0.9% Normal Saline (250mL Bag) 250 ML 15 ML IV ×2 (20:31→21:04)
--- NOTE | 2023-04-25 20:46 | PCM.HOSP.N ---
Hospitalist Note Patient had 2 more bowel movements with blood in them, no dizziness, not having any other specific complaints. CTA did show active GI bleeding of the right colon/cecum, repeat hemoglobin is pending and patient has 2 units on hold, if hemoglobin less than 8 will transfuse given the active bleed.
[2023-04-25] MEDS: Pantoprazole Sodium 80 MG in 0.9% Normal Saline (100mL Bag) 80 ML 10 MG CONT INF (20:50)
[2023-04-25] MEDS: Piperacil/Tazobactam 4.5 GM in 0.9% Normal Saline (100mL MB+) 100 ML IV (20:58)
[2023-04-25] MEDS: Octreotide 0.5 MG in Dextrose 5%-Water (250mL Bag) 250 ML 12.5 MG CONT INF (20:58)
[2023-04-25] MEDS: 0.9% Saline Lock 10 ML Syringe IV ×3 (20:58→22:28)
[2023-04-25 21:00] LABS: Hematocrit 25.1 % (40-54); Hemoglobin 7.3 g/dL (13.0-16.5); Mean Corp Hgb Conc 29.1 g/dL (32-36); Mean Corpuscular Hgb 22.2 pg (27.0-32.0); Mean Corpuscular Volume 76.3 fL (80-94); Mean Platelet Vol. 9.8 fl (6.2-12.0); Platelet Count 342 K/mm3 (150-450); RBC Distribution Width CV 19.4 % (11.6-14.6); RBC Distribution Width SD 53.8 fl (35.1-43.9); Red Blood Count 3.29 M/mm3 (4.6-6.2); White Blood Count 13.1 K/mm3 (4.4-11.0)
[2023-04-25 21:01] LABS: Scan Indicated on CBC? Y/N NO
--- NOTE | 2023-04-25 23:14 | NURSING ---
Pt states he does not want his metoprolol, ativan and melatonin that he takes every night until around 1am. He reports that is the time he goes to sleep when he is home.
[2023-04-26] VITALS (20 sets, daily range): BP systolic 81–118; BP diastolic 48–72; PULSE 67–109; RESP 16–20; TEMP 36.6–37.2; O2SAT 2–100
[2023-04-26] MEDS: MELATONIN 10 MG TABLET PO ×2 (01:21→21:17)
[2023-04-26] MEDS: LORazepam 1 MG Tablet PO ×2 (01:21→15:59)
[2023-04-26] MEDS: 0.9% Saline Lock 10 ML Syringe IV ×3 (03:38→15:46)
--- NOTE | 2023-04-26 04:53 | NURSING ---
PT CALLED OUT AT 0420 REQUESTING TO USE COMMODE- PT USED BSC IN BATHROOM AND HAD LG BM WITH LARGE CLOTS. PT REPORTS THAT HE ALSO URINATED IN COMMODE. ABOUT 500CC TOTAL IN BSC. PT STOOD AND C/O SOB, DIZZINESS, DIAPHORESIS AND BECAME VERY ANXIOUS. SOON PT SAT ON BED, HE STATES HE HAD TO GO AGAIN. BSC BROUGHT TO SIDE OF BED AND PT SAT BACK DOWN. PT HAD ANOTHER BRIGHT RED BLOODY BM WITH LARGE CLOTS THAT WAS ROUGHLY A TOTAL OF 500CC- PT REPORTS THAT HE URINATED WELL AT THIS TIME. UPON STANDING, PT VISIBLY UNSTEADY BUT EASILY TURNED AND PIVOTED TO SIT DOWN IN THE BED. PT C/O SOB, DIZZINESS, DIAPHORESIS AND AGAIN WAS VERY ANXIOUS. O2 ADDED AT 2L AND VITALS TAKEN. CHARGE NURSE NOTIFIED, LAB CALLED TO DRAW STAT CBC. PT LAYING SUPINE IN BED AND REPORTS THAT HE IS FEELING BETTER. PHYSICIAN TO BE NOTIFIED.
[2023-04-26 04:56] LABS: Absolute Lymphocyte Count 1.26 X10^3/uL (0.83-4.51); Basophil# 0.09 X10^3/uL; Basophil% 0.7 % (0-1); Eosinophil# 0.15 X10^3/uL; Eosinophils% 1.1 % (0-5); Hematocrit 25.9 % (40-54); Hemoglobin 7.9 g/dL (13.0-16.5); Lymphocyte # 1.26 X10^3/ul (0.83-4.51); Lymphocyte % 9.6 % (19-41); Mean Corp Hgb Conc 30.5 g/dL (32-36); Mean Corpuscular Hgb 24.3 pg (27.0-32.0); Mean Corpuscular Volume 79.7 fL (80-94); Mean Platelet Vol. 9.4 fl (6.2-12.0); Monocyte# 1.48 X10^3/uL; Monocyte% 11.3 % (0-10); NRBC Flagged by Analyzer 0 % (0-5); Neutrophil # 10.04 X10^3/uL (2.7-7.7); Neutrophil % 76.9 % (47-70); Platelet Count 287 K/mm3 (150-450); RBC Distribution Width SD 58.4 fl (35.1-43.9); Red Blood Count 3.25 M/mm3 (4.6-6.2); White Blood Count 13.1 K/mm3 (4.4-11.0)
[2023-04-26] MEDS: Piperacil/Tazobactam 3.375 GM in 0.9% Normal Saline (50mL MB+) 50 ML IV ×3 (05:03→21:17)
[2023-04-26 05:17] LABS: International Normalized Ratio 2.7; Prothrombin Time (Protime)PT. 29.1 SECONDS (11.7-14.9)
[2023-04-26 05:19] LABS: ALB/GLOB Ratio 0.9 RATIO (0.9-2.4); AST(SGOT) 21 U/L (15-37); Alanine Aminotransfer ALT/SGPT 26 U/L (16-61); Albumin, Serum 2.9 g/dL (3.2-5.0); Alkaline Phosphatase 98 U/L (45-117); Anion Gap 7 (5-15); BUN 19 mg/dL (7-18); BUN/Creat Ratio 18.8 RATIO (10-20); Calcium,Total 7.6 mg/dL (8.5-10.1); Chloride 110 mmol/L (98-107); Creatinine, Serum 1.01 mg/dL (0.70-1.30); EST Glomerular Filtration Rate 76 mL/min (>60); Est Glom Filt Rate - Afr Amer 92 mL/min (>60); Estimated Creatinine Clearance 66.16 ml/min; Globulin 3.4 g/dL (2.2-4.2); Glucose 151 mg/dL (74-106); Protein, Total 6.3 g/dL (6.4-8.2); Sodium Level 140 mmol/L (136-145)
[2023-04-26] MEDS: Phytonadione (Vit K) 5 MG in 0.9% Normal Saline (50mL Bag) 50 ML 150 MG IV (05:33)
--- NOTE | 2023-04-26 08:02 | PN.HOSP_ITS ---
Reason for Visit Reason for Visit: Diagnoses Post-traumatic stress disorder, unspecified (04/25/23) Paroxysmal atrial fibrillation (04/25/23) Gastrointestinal hemorrhage, unspecified (04/25/23) Personal history of other diseases of the circulatory system (04/25/23) Presence of prosthetic heart valve (04/25/23) Objective Data Objective Data Vital Signs: Vital Signs Temp Pulse Resp BP Pulse Ox O2 Del Method O2 Flow Rate 98.7 F 101 H 16 114/71 98 Room Air 2 04/26/23 07:33 04/26/23 07:33 04/26/23 07:33 04/26/23 07:33 04/26/23 07:33 04/26/23 07:33 04/26/23 06:53 Oxygen Flow Rate (L/min) 2 Oxygen Delivery Method Room Air Weight: 451 lb 15.162 oz Body Mass Index (BMI) 61.2 Intake & Output: Intake and Output for Last 24 Hours 04/24/23 04/25/23 04/26/23 23:59 23:59 23:59 Intake Total 1107.67 / 1467.67 612.5 / 612.5 Output Total 1000 / 1000 Balance 1107.67 / 1467.67 -387.5 / -387.5 Lab / Micro Data 04/26/23 09:31 04/26/23 04:45 Labs: Laboratory Results - last 24 hr 04/25/23 14:23: WBC 10.6, RBC 3.68 L, Hgb 8.2 L, Hct 28.2 L, MCV 76.6 L, MCH 22.3 L, MCHC 29.1 L, RDW Std Deviation 53.3 H, RDW Coeff of Rich 19.4 H, Plt Count 338, MPV 9.4, Immature Gran % (Auto) 0.500, Neut % (Auto) 80.2 H, Lymph % (Auto) 7.8 L, Hardy % (Auto) 9.6, Eos % (Auto) 1.0, Baso % (Auto) 0.9, Absolute Neuts (auto) 8.5 H, Absolute Lymphs (auto) 0.82 L, Nucleated RBC % 0, PT 29.2 H, INR 2.7, Sodium 138, Potassium 4.4, Chloride 109 H, Carbon Dioxide 28.0, Anion Gap 1 L, BUN 25 H, Creatinine 1.07, Estim Creat Clear Calc 66.15, Est GFR (MDRD) Af Amer 86, Est GFR (MDRD) Non-Af 71, BUN/Creatinine Ratio 23.4 H, Glucose 114 H , Lactic Acid 1.4, Calcium 8.5 04/25/23 14:50: Blood Type AB POSITIVE, Antibody Screen NEGATIVE, Crossmatch See Detail 04/25/23 14:50: Crossmatch See Detail 04/25/23 19:00: Sodium 140, Potassium 3.9, Chloride 111 H, Carbon Dioxide 27.0, Anion Gap 2 L, BUN 22 H, Creatinine 0.96, Estim Creat Clear Calc 69.61, Est GFR (MDRD) Af Amer 97, Est GFR (MDRD) Non-Af 80, BUN/Creatinine Ratio 22.9 H, Glucose 107 H, Calcium 8.0 L 04/25/23 20:48: WBC 13.1 H, RBC 3.29 L, Hgb 7.3 L, Hct 25.1 L, MCV 76.3 L, MCH 22.2 L, MCHC 29.1 L, RDW Std Deviation 53.8 H, RDW Coeff of Rich 19.4 H, Plt Count 342, MPV 9.8 04/26/23 04:45: WBC 13.1 H, RBC 3.25 L, Hgb 7.9 L, Hct 25.9 L, MCV 79.7 L, MCH 24.3 L, MCHC 30.5 L, RDW Std Deviation 58.4 H, RDW Coeff of Rich 20.0 H, Plt Count 287, MPV 9.4, Immature Gran % (Auto) 0.400, Neut % (Auto) 76.9 H, Lymph % (Auto) 9.6 L, Hardy % (Auto) 11.3 H, Eos % (Auto) 1.1, Baso % (Auto) 0.7, Absolute Neuts (auto) 10.0 H, Absolute Lymphs (auto) 1.26, Nucleated RBC % 0, PT 29.1 H, INR 2.7, Sodium 140, Potassium 4.0, Chloride 110 H, Carbon Dioxide 23.0, Anion Gap 7, BUN 19 H, Creatinine 1.01, Estim Creat Clear Calc 66.16, Est GFR (MDRD) Af Amer 92, Est GFR (MDRD) Non-Af 76, BUN/Creatinine Ratio 18.8, Glucose 151 H, Calcium 7.6 L, Total Bilirubin 1.20 H, AST 21, ALT 26, Alkaline Phosph atase 98, Total Protein 6.3 L, Albumin 2.9 L, Globulin 3.4, Albumin/Globulin Ratio 0.9 Radiography Diagnostic Testing: Radiology Impression Abdomen/Pelvis CTA 04/25/23 16:25 IMPRESSION: 1. Active GI bleeding of the right colon/cecum. 2. Moderate volume right pleural effusion. 3. Periumbilical abdominal wall hernia containing small bowel. Electronically Signed: Benny Diaz MD ([place]) at 17:20 EST , Physical Exam Narrative Seen and examined. Patient admitted with rectal bleed bright red since yesterday. Had 2 times after admission last 1 about 4 AM. No abdominal pain. No chest pain or shortness of breath. Patient has mechanical aortic valve lobaplatin ago and si nce then he is on Coumadin. Physical exam General: Alert, Oriented x3, Cooperative HEENT: Atraumatic, PERRLA, EOMI, Normocephalic Oral: No Gingival or Mucosal Lesions/ Ulcerations Neck: Supple, No JVD, Negative Carotid Bruits Lungs: Air entry diminished in bilateral lung bases. No crepitation/rhonchi Cardiovascular: Regular rate, Regular Rhythm, Normal S1, Normal S2, mechanical aortic valve click Abdomen: Bowel Sounds Present, Soft, Non Tender, Non-Distended : No renal angle tenderness. No suprapubic tenderness. Extremities: No edema, Capillary Refill Less than 3 Seconds Skin: No rashes, No breakdown Musculoskeletal: No Tenderness to Palpation of Joints or Extremities. ROM full and intact. Neurological: Cranial nerves II-XII grossly intact, DTR 2+/4. No acute focal neurological deficit. Psych/Mental Status: Normal Affect, Appropriate. Assessment & Plan Assessment/Plan (1) Gastrointestinal bleed: QUALIFIERS: GI bleed type/associated pathology: anorectal hemorrhage Qualified Code(s): K62.5 - Hemorrhage of anus and rectum (2) Paroxysmal atrial fibrillation: PLAN: Plan 70-year-old gentleman was admitted on monitored bed through ED for rectal bleeding that started the morning of admission. Initially small amount but later had large amount of blood with no clots. Patient on warfarin for history of mechanical heart valve. No abdominal pain fever or rectal pain. 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 Acute GI blood loss due to acute and active lower GI bleed and coagulopathy, less likely with the rapid transit: BUN 19 improved from 25. Patient was last admitted in August 24 acute GI bleed and both upper and lower endoscopies showed angiodysplasia in cecum and following it pseudomembranous colitis which were presumed to be the culprits. CTA abdomen reviewed which shows active GI bleeding of right colon/cecum. Other findings were moderate right pleural effusion periumbilical abdominal wall hernia containing small bowel. Patient pr esented with severe anemia hemoglobin around 7.3 hematocrit 25% but platelet count normal. Patient had 3 units of PRBC transfusion. Initially patient was started on Protonix drip with bolus octreotide drip but later order finding lower GI bleed and discussion of portfolio management marketing, Protonix drip changed to 40 mg IV every 12 and octreotide drip discontinued. Patient also on Zosyn. Patient INR 2.7 and with further 2 bleeding episode, vitamin K 5 mg was given at night. Clear liquid started. Bowel prep from 2 PM and colonoscopy tomorrow AM. Last globin 7.9. 2. 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 Coagulopathy. Monitor INR daily. As soon as GI bleed is controlled, anticoagulant will be started with IV heparin drip. 3. #Paroxysmal atrial fibrillation -Therapeutic on Coumadin at present with INR 2.7 -Continue beta-edith 4. #Depression -Continue duloxetine 5. #DVT ppx: Presently therapeutic on Coumadin, will need SCDs once patient below threshold Total time of the visit including total time spent in counseling or coordination of care, (more than 50% of the total time, spent in obtaining medical information from nurses and other ancillary care providers,explaining to the patient about labs, imaging, diagnosis and management of active complex medical conditions), discussion with GI labor relations consultant, review of labs and imaging is 40 minutes. Clinical Impression(s) from Imaging Studies Abdomen/Pelvis CTA 11/22/23 16:25 IMPRESSION: 1. Active GI bleeding of the right colon/cecum. 2. Moderate volume right pleural effusion. 3. Periumbilical abdominal wall hernia containing small bowel. Charges/Coding Visit Charges Inpatient E&M: 38669 [facility] Hosp L3
[2023-04-26] MEDS: DULoxetine Hcl 60 MG Capsule PO (09:50)
[2023-04-26] MEDS: Metoprolol Tartrate 25 MG Tablet PO ×2 (09:51→21:16)
[2023-04-26 10:04] LABS: Hemoglobin 7.8 g/dL (13.0-16.5)
[2023-04-26 13:00] LABS: Hemoglobin 7.9 g/dL (13.0-16.5)
[2023-04-26] MEDS: Lactated Ringers 1,000 ML 75 ML IV (15:29)
[2023-04-26] MEDS: Bisacodyl 5 MG Tablet 20 MG PO (15:43)
[2023-04-26] MEDS: 0.9% Normal Saline (250mL Bag) 250 ML 15 ML IV (15:53)
--- NOTE | 2023-04-26 18:19 | PN.GI_ITS ---
Subjective Subjective No sign of bleeding for the last 6 hours. He denies abdominal pain. He is currently prepping for colonoscopy tomorrow. Objective Data Objective Data Vital Signs: Vital Signs Temp Pulse Resp BP Pulse Ox O2 Del Method O2 Flow Rate 98.0 F 67 19 H 101/56 L 99 Room Air 2 04/26/23 15:50 04/26/23 15:50 04/26/23 15:50 04/26/23 15:50 04/26/23 15:50 04/26/23 15:50 04/26/23 09:53 Oxygen Flow Rate (L/min) 2 Oxygen Delivery Method Room Air Weight: 213 lb 6.519 oz Body Mass Index (BMI) 61.2 Intake & Output: Intake and Output for Last 24 Hours 04/24/23 04/25/23 04/26/23 23:59 23:59 23:59 Intake Total 1107.67 / 1467.67 1725.12 / 1725.12 Output Total 1000 / 1000 Balance 1107.67 / 1467.67 725.12 / 725.12 Lab / Micro Data 04/26/23 12:51 04/26/23 04:45 Labs: Laboratory Results - last 24 hr 04/25/23 14:50: Crossmatch See Detail 04/25/23 14:50: Crossmatch See Detail 04/25/23 19:00: Sodium 140, Potassium 3.9, Chloride 111 H, Carbon Dioxide 27.0, Anion Gap 2 L, BUN 22 H, Creatinine 0.96, Estim Creat Clear Calc 69.61, Est GFR (MDRD) Af Amer 97, Est GFR (MDRD) Non-Af 80, BUN/Creatinine Ratio 22.9 H, Glucose 107 H, Calcium 8.0 L 04/25/23 20:48: WBC 13.1 H, RBC 3.29 L, Hgb 7.3 L, Hct 25.1 L, MCV 76.3 L, MCH 22.2 L, MCHC 29.1 L, RDW Std Deviation 53.8 H, RDW Coeff of Rich 19.4 H, Plt Count 342, MPV 9.8 04/26/23 04:45: WBC 13.1 H, RBC 3.25 L, Hgb 7.9 L, Hct 25.9 L, MCV 79.7 L, MCH 24.3 L, MCHC 30.5 L, RDW Std Deviation 58.4 H, RDW Coeff of Rich 20.0 H, Plt Count 287, MPV 9.4, Immature Gran % (Auto) 0.400, Neut % (Auto) 76.9 H, Lymph % (Auto) 9.6 L, Davidson % (Auto) 11.3 H, Eos % (Auto) 1.1, Baso % (Auto) 0.7, Absolute Neuts (auto) 10.0 H, Absolute Lymphs (auto) 1.26, Nucleated RBC % 0, PT 29.1 H, INR 2.7, Sodium 140, Potassium 4.0, Chloride 110 H, Carbon Dioxide 23.0, Anion Gap 7, BUN 19 H, Creatinine 1.01, Estim Creat Clear Calc 66.16, Est GFR (MDRD) Af Amer 92, Est GFR (MDRD) Non-Af 76, BUN/Creatinine Ratio 18.8, Glucose 151 H, Calcium 7.6 L, Total Bilirubin 1.20 H, AST 21, ALT 26, Alkaline Phosphatase 98, Total Protein 6.3 L, Albumin 2.9 L, Globulin 3.4, Albumin/Globulin Ratio 0.9 04/26/23 09:31: Hgb 7.8 L 04/26/23 12:51: Hgb 7.9 L Physical Exam Narrative Seen and examined. Patient admitted with rectal bleed bright red since yesterday. Physical exam General: Alert, Oriented x3, Cooperative HEENT: Atraumatic, PERRLA, EOMI, Normocephalic Oral: No Gingival or Mucosal Lesions/ Ulcerations Neck: Supple, No JVD, Negative Carotid Bruits Lungs: Air entry diminished in bilateral lung bases. No crepitation/rhonchi Cardiovascular: Regular rate, Regular Rhythm, Normal S1, Normal S2, mechanical aortic valve click Abdomen: Bowel Sounds Present, Soft, Non Tender, Non-Distended : No renal angle tenderness. No suprapubic tenderness. Extremities: No edema, Capillary Refill Less than 3 Seconds Skin: No rashes, No breakdown Musculoskeletal: No Tenderness to Palpation of Joints or Extremities. ROM full and intact. Neurological: Cranial nerves II-XII grossly intact, DTR 2+/4. No acute focal neurological deficit. Psych/Mental Status: Normal Affect, Appropriate. Assessment & Plan Assessment/Plan (1) Gastrointestinal bleed: QUALIFIERS: GI bleed type/associated pathology: anorectal hemorrhage Qualified Code(s): K62.5 - Hemorrhage of anus and rectum (2) History of endocarditis: (3) H/O pulmonic valve replacement: (4) History of mechanical aortic valve replacement: (5) Paroxysmal atrial fibrillation: (6) Post traumatic stress disorder: PLAN: Plan Bright red blood per rectum -Unclear upper versus lower. Does have slight elevation in BUN and given blood was becoming darker may be upper in nature -Was admitted 08/2022 for acute GI bleed but upper and lower endoscopies showed angiodysplasia in cecum and following it pseudomembranous colitis which were presumed to be the culprits -Plan is for colonoscopy tomorrow History of pulmonic valve replacement and mechanical aortic valve -Patient is on Coumadin, INR 2.7 -Once and dips below therapeutic range may need heparin drip -Monitor daily INRs Paroxysmal atrial fibrillation -Therapeutic on Coumadin at present with INR 2.7 -Continue beta-edith DVT ppx: Presently therapeutic on Coumadin, will need SCDs once patient below threshold Charges/Coding Visit Charges Inpatient E&M: 44115 [facility] Hosp L3
[2023-04-26] MEDS: Polyethylene Glycol 3350 BOWEL PREP PO (18:22)
[2023-04-26] MEDS: Pantoprazole Sodium 40 MG in 0.9% Normal Saline (100mL MB+) 100 ML 330 MG IV (21:17)
[2023-04-27] VITALS (12 sets, daily range): BP systolic 101–124; BP diastolic 48–74; PULSE 78–103; RESP 16–18; TEMP 36.3–37.2; O2SAT 95–100; BMI 28.9
[2023-04-27] MEDS: Lactated Ringers 1,000 ML 75 ML IV (05:19)
[2023-04-27] MEDS: Piperacil/Tazobactam 3.375 GM in 0.9% Normal Saline (50mL MB+) 50 ML IV ×3 (05:23→22:34)
[2023-04-27 05:51] LABS: Absolute Lymphocyte Count 1.02 X10^3/uL (0.83-4.51); Absolute Neutrophil Count 8.8 X10^3/uL (2.0-7.7); Basophil# 0.07 X10^3/uL; Basophil% 0.6 % (0-1); Eosinophil# 0.23 X10^3/uL; Hematocrit 23.4 % (40-54); Hemoglobin 7.2 g/dL (13.0-16.5); Lymphocyte # 1.02 X10^3/ul (0.83-4.51); Lymphocyte % 8.8 % (19-41); Mean Corp Hgb Conc 30.8 g/dL (32-36); Mean Corpuscular Hgb 24.7 pg (27.0-32.0); Mean Corpuscular Volume 80.4 fL (80-94); Monocyte# 1.45 X10^3/uL; Monocyte% 12.5 % (0-10); NRBC Flagged by Analyzer 0 % (0-5); Neutrophil # 8.78 X10^3/uL (2.7-7.7); Neutrophil % 75.5 % (47-70); Platelet Count 247 K/mm3 (150-450); Red Blood Count 2.91 M/mm3 (4.6-6.2); White Blood Count 11.6 K/mm3 (4.4-11.0)
[2023-04-27 06:06] LABS: International Normalized Ratio 1.4; Prothrombin Time (Protime)PT. 17.6 SECONDS (11.7-14.9)
[2023-04-27 06:43] LABS: Anion Gap 5 (5-15); BUN 13 mg/dL (7-18); BUN/Creat Ratio 12.7 RATIO (10-20); Calcium,Total 7.9 mg/dL (8.5-10.1); Chloride 110 mmol/L (98-107); Creatinine, Serum 1.02 mg/dL (0.70-1.30); EST Glomerular Filtration Rate 75 mL/min (>60); Est Glom Filt Rate - Afr Amer 91 mL/min (>60); Estimated Creatinine Clearance 65.51 ml/min; Glucose 114 mg/dL (74-106); Potassium 4.1 mmol/L (3.5-5.1); Sodium Level 141 mmol/L (136-145)
--- NOTE | 2023-04-27 07:37 | PN.HOSP_ITS ---
Reason for Visit Reason for Visit: Diagnoses Enterocolitis due to Clostridium difficile, not specified as recurrent ( 3) Iron deficiency anemia, unspecified (04/25/23) Post-traumatic stress disorder, unspecified (04/25/23) Paroxysmal atrial fibrillation (04/25/23) Hemorrhage of anus and rectum (04/25/23) Gastrointestinal hemorrhage, unspecified (04/25/23) Personal history of other diseases of the circulatory system (04/25/23) Presence of prosthetic heart valve (04/25/23) Objective Data Objective Data Vital Signs: Vital Signs Temp Pulse Resp BP Pulse Ox O2 Del Method O2 Flow Rate 99.0 F 78 17 105/53 L 95 Room Air 2 04/27/23 07:32 04/27/23 07:32 04/27/23 07:32 04/27/23 07:32 04/27/23 07:32 04/27/23 07:32 04/26/23 09:53 Oxygen Flow Rate (L/min) 2 Oxygen Delivery Method Room Air Weight: 213 lb 6 oz Body Mass Index (BMI) 28.9 Intake & Output: Intake and Output for Last 24 Hours 04/25/23 04/26/23 04/27/23 23:59 23:59 23:59 Intake Total 1107.67 / 1467.67 2245.12 / 2245.12 1050 / 1050 Output Total 1000 / 1000 Balance 1107.67 / 1467.67 1245.12 / 1245.12 1050 / 1050 Lab / Micro Data 04/27/23 05:00 04/27/23 05:00 Labs: Laboratory Results - last 24 hr 04/25/23 14:50: Crossmatch See Detail 04/26/23 09:31: Hgb 7.8 L 04/26/23 12:51: Hgb 7.9 L 04/27/23 05:00: WBC 11.6 H, RBC 2.91 L, Hgb 7.2 L, Hct 23.4 L, MCV 80.4, MCH 24.7 L, MCHC 30.8 L, RDW Std Deviation 56.0 H, RDW Coeff of Rich 19.0 H, Plt Coun t 247, MPV 10.0, Immature Gran % (Auto) 0.600, Neut % (Auto) 75.5 H, Lymph % (Auto) 8.8 L, [place] % (Auto) 12.5 H, Eos % (Auto) 2.0, Baso % (Auto) 0.6, Absolute Neuts (auto) 8.8 H, Absolute Lymphs (auto) 1.02, Nucleated RBC % 0, PT 17.6 H, INR 1.4, Sodium 141, Potassium 4.1, Chloride 110 H, Carbon Dioxide 26.0, Anion Gap 5, BUN 13, Creatinine 1.02, Estim Creat Clear Calc 65.51, Est GFR (MDRD) Af Amer 91, Est GFR (MDRD) Non-Af 75, BUN/Creatinine Ratio 12.7, Glucose 114 H, Calcium 7.9 L Physical Exam Narrative Seen and examined. Patient admitted with rectal bleed bright red since yesterday. Had 2 times after admission last 1 about 4 AM. No abdominal pain. No chest pain or shortness of breath. Patient has mechanical aortic valve lobaplatin ago and since then he is on Coumadin. Physical exam General: Alert, Oriented x3, Cooperative HEENT: Atraumatic, PERRLA, EOMI, Normocephalic Oral: No Gingival or Mucosal Lesions/ Ulcerations Neck: Supple, No JVD, Negative Carotid Bruits Lungs: Air entry diminished in bilateral lung bases. No crepitation/rhonchi Cardiovascular: Regular rate, Regular Rhythm, Normal S1, Normal S2, mechanical aortic valve click Abdomen: Bowel Sounds Present, Soft, Non Tender, Non-Distended : No renal angle tenderness. No suprapubic tenderness. Extremities: No edema, Capillary Refill Less than 3 Seconds Skin: No rashes, No breakdown Musculoskeletal: No Tenderness to Palpation of Joints or Extremities. ROM full and intact. Neurological: Cranial nerves II-XII grossly intact, DTR 2+/4. No acute focal neurological deficit. Psych/Mental Status: Normal Affect, Appropriate. Assessment & Plan Assessment/Plan (1) Gastrointestinal bleed: QUALIFIERS: GI bleed type/associated pathology: anorectal hemorrhage Qualified Code(s): K62.5 - Hemorrhage of anus and rectum (2) Paroxysmal atrial fibrillation: PLAN: Plan 70-year-old gentleman was admitted on monitored bed through ED for rectal bleeding that started the morning of admission. Initially small amount but later had large amount of blood with no clots. Patient on warfarin for history of mechanical heart valve. No abdominal pain fever or rectal pain. 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 Acute GI blood loss due to acute and active lower GI bleed and coagulopathy, less likely with the rapid transit: BUN 19 improved from 25. Patient was last admitted in August 24 acute GI bleed and both upper and lower endoscopies showed angiodysplasia in cecum and following it pseudomembranous colitis which were presumed to be the culprits. CTA abdomen reviewed which shows active GI bleeding of right colon/cecum. Other findings were moderate right pleural effusion periumbilical abdominal wall hernia containing small bowel. Patient presented with severe anemia hemoglobin around 7.3 hematocrit 25% but platelet count normal. Patient had 3 units of PRBC transfusion. Initially patient was started on Protonix drip with bolus octreotide drip but later order finding lower GI bleed and discussion of arboreal scientist, Protonix drip changed to 40 mg IV every 12 and octreotide drip discontinued. Patient also on Zosyn. Patient INR 2.7 and with further 2 bleeding episode, vitamin K 5 mg was given at night. Clear liquid started. Bowel prep from 2 PM and colonoscopy tomorrow AM. Last globin 7.9. 04/27: Patient stated he had 4 more dark red blood after started on colon prep yesterday. The patient had colonoscopy in the morning. Patent end-to-end colocolonic anastomosis, healthy-appearing mucosa. Patchy moderate mucosal changes in transverse colon hepatic flexure, AC, cecum and appendiceal orifice at IC valve secondary to colitis biopsied. Moderate inflammation in the ileum secondary to ileitis. Blood in sigmoid colon at the splenic flexure transverse colon before meals and cecum. Vancomycin 125 mg p.o. 4 times daily for 2 weeks. Work-up for Crohn's disease including blood work antibody testing and MRI enterography as outpatient. Repeat colonoscopy recommended. 2. 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 Coagulopathy. Monitor INR daily. As soon as GI bleed is controlled, anticoagulant will be started with IV heparin drip. 04/27 INR 1.4. Patient was started on IV heparin drip. Warfarin to resume from today's evening. 3. #Paroxysmal atrial fibrillation -Therapeutic on Coumadin at present with INR 2.7 -Continue beta-edith 4. #Depression -Continue duloxetine 5. #DVT ppx: Presently therapeutic on Coumadin, will need SCDs once patient below threshold Total time of the visit including total time spent in counseling or coordination of care, (more than 50% of the total time, spent in obtaining medical information from nurses and other ancillary care providers,explaining to the patient about labs, imaging, diagnosis and management of active complex medical conditions), discussion with GI real estate listing consultant, review of labs and imaging is 40 minutes. Clinical Impression(s) from Imaging Studies Abdomen/Pelvis CTA 04/25/23 16:25 IMPRESSION: 1. Active GI bleeding of the right colon/cecum. 2. Moderate volume right pleural effusion. 3. Periumbilical abdominal wall hernia containing small bowel. Charges/Coding Visit Charges Inpatient E&M: [id number] [facility] Hosp L2
[2023-04-27 07:56] LABS: Platelet Count 240 K/mm3 (150-450); RET-HE 25.1 pg (30-35); Reticulocyte Count 2.14 % (0.5-1.5)
--- NOTE | 2023-04-27 07:56 | NURSING ---
pt to surgery
[2023-04-27 08:04] LABS: Ferritin 25 ng/mL (26-388); Iron 67 ug/dL (65-175); Iron Binding Capacity,Total 334 ug/dL (250-450); PERCENT IRON SATURATION 20.1 % (15.0-55.0)
[2023-04-27 09:34] LABS: Troponin-I HS 17 pg/mL (3.0-78.0)
--- NOTE | 2023-04-27 10:00 | COLBX_PTH ---
PATIENT: TRAMAINE MAST LOC: MS3 U#:[id number] AGE/SX: 78/M ROOM: SC314 RE04/25/[address]: Dr. Chantale Chang MD : 1945 BED: 1 DIS: 05/04/2023 SPEC #: [id number] RECD: 04/27/23 10:23 STATUS: PATY REAnum #: [id number] AURA: 04/27/23 10:[address]: Yohan Perez DEPT: SURGICAL PATHOLOGY RECD BY: Eleanor Vega ENTERED: 04/27/23 14:43 SP TYPE: COLON BX OTHR DR: DO Dr. Zhang James MD Dr. Paige Pierce, MD Tissues: A - Ileum, NOS B - Cecum, NOS C - COLON BIOPSY Procedures: Special Stain Group I Surgery Specimen Level IV AFB Stain (control) GMS Stain (control) Comments: @ Ordering doctor for SUIV edited from to @ by MYNOR at 04/27/23 1530 @ Submitting doctor edited from to @ by RGOOD at 04/27/23 1530 HEADER OPERATION: Colonoscopy with biopsy PRE-OP DIAGNOSIS: Gastrointestinal bleed TISSUE SUBMITTED: A - Terminal ileum biopsy, B - Cecum biopsy, C - Random colon biopsy MICROSCOPIC DIAGNOSIS A. Terminal ileum, biopsy: Focal acute enteritis. See comment. B. Cecum, biopsy: Focal acute colitis. Fibrinopurulent material. See comment. C. Colon, random biopsy: Focal acute colitis. Melanosis coli. A single non-necrotizing granuloma. Negative for acid-fast bacilli and fungal organisms. See comment. AM:dana 04/30/2023 COMMENT A. Rare cryptitis is present. Clinical correlation is suggested. B. Focal cryptitis is present. Clinical correlation is suggested. C. Rare cryptitis and focal crypt abscess is identified. Clinical correlation is suggested. AFB and GMS stains with matched controls were used in the evaluation of this case. MICROSCOPIC DESCRIPTION Slides are reviewed. GROSS DESCRIPTION A - Received in fixative is one container labeled with the patient's name and designated terminal ileum biopsy. The specimen consists of multiple irregular fragments of light chavira soft tissue that in aggregate measure 1.2 x 0.6 x 0.1 cm. The specimen is totally submitted in one cassette. B - Received in fixative is one container labeled with the patient's name and designated cecum biopsy. The specimen consists of multiple irregular fragments of light chavira soft tissue that in aggregate measure 1.2 x 0.5 x 0.1 cm. The specimen is totally submitted in one cassette. C - Received in fixative is one container labeled with the patient's name and designated random colon biopsy. The specimen consists of multiple irregular fragments of light chavira soft tissue that in aggregate measure 2.0 x 0.6 x 0.1 cm. The specimen is totally submitted in one cassette. / AM:dana 04/27/2023 TC:2 CPT: 58428 x3, [id number] x2
--- NOTE | 2023-04-27 10:17 | OP.CCLET_ITS ---
04/27/2023 Donaldo Larson [address] [place] [address] Re : Colonoscopy procedure for Markus Nava Dear Dr. Larson This procedure was performed on Thursday, April 27, 2023. My impressions and recommendations are as follows: Impressions : - Preparation of the colon was fair. - Patent end-to-end colo-colonic anastomosis, characterized by healthy appearing mucosa. - Patchy moderate mucosal changes were found in the transverse colon, at the hepatic flexure, in the ascending colon, in the cecum, at the appendiceal orifice and at the ileocecal valve secondary to colitis. Biopsied. - Moderate inflammation was found in the ileum secondary to ileitis. Biopsied. - Blood in the sigmoid colon, at the splenic flexure, in the transverse colon, in the ascending colon and in the cecum. - Stool in the recto-sigmoid colon, in the sigmoid colon, in the descending colon, in the transverse colon, in the ascending colon and in the cecum. Fluid aspiration performed. Recommendations : - Return patient to hospital [facility] for ongoing care. - Resume regular diet. - Vancocin (vancomycin) 125 mg PO QID for 2 weeks. - Workup for Crohn's disease including blood work, antibody testing and MRI enterography inpatient versus outpatient - Repeat colonoscopy is recommended. The colonoscopy date will be determined after pathology results from today's exam become available for review. - Continue present medications. My findings are described in the full procedure note, which is enclosed. If I can be of further assistance, please feel free to contact me at . Sincerely, Yohan Perez DO 04/27/2023 10:16:07 AM This report has been signed electronically.
--- NOTE | 2023-04-27 10:17 | OP.COLON_ITS ---
Patient Name: Markus Nava Procedure Date: 04/27/2023 9:24 AM Date of : 1945 Age: 78 Procedure: Colonoscopy Indications: Hematochezia Providers: Yohan Perez DO Medicines: Monitored Anesthesia Care Patient Profile: This is a 78 year old male. Refer to note in patient chart for documentation of history and physical. Last Colonoscopy: 1 year ago. Complications: No immediate complications. Procedure: Pre-Anesthesia Assessment: - Prior to the procedure, a History and Physical was performed, and patient medications and allergies were reviewed. The patient is competent. The risks and benefits of the procedure and the sedation options and risks were discussed with the patient. All questions were answered and informed consent was obtained. Patient identification and proposed procedure were verified by the physician in the pre-procedure area. Mental Status Examination: alert and oriented. Airway Examination: normal oropharyngeal airway and neck mobility. Respiratory Examination: clear to auscultation. CV Examination: normal. Prophylactic Antibiotics: The patient does not require prophylactic antibiotics. Prior Anticoagulants: The patient has taken no anticoagulant or antiplatelet agents. ASA Grade Assessment: II - A patient with mild systemic disease. After reviewing the risks and benefits, the patient was deemed in satisfactory condition to undergo the procedure. The anesthesia plan was to use monitored anesthesia care (MAC). Immediately prior to administration of medications, the patient was re-assessed for adequacy to receive sedatives. The heart rate, respiratory rate, oxygen saturations, blood pressure, adequacy of pulmonary ventilation, and response to care were monitored throughout the procedure. The physical status of the patient was re-assessed after the procedure. After I obtained informed consent, the scope was passed under direct vision. Throughout the procedure, the patient's blood pressure, pulse, and oxygen saturations were monitored continuously. The Colonoscope was introduced through the anus and advanced to the terminal ileum. The colonoscopy was performed without difficulty. The patient tolerated the procedure well. The quality of the bowel preparation was fair. The terminal ileum, ileocecal valve, appendiceal orifice, and rectum were photographed. Scope In: 9:42:33 AM Scope Withdrawal Time 0 hours 14 minutes 17 seconds Scope Out: 10:01:57 AM Total Procedure Duration Time 0 hours 19 minutes 24 seconds Findings: The perianal and digital rectal examinations were normal. There was evidence of a prior end-to-end colo-colonic anastomosis in the sigmoid colon. This was patent and was characterized by healthy appearing mucosa. Patchy moderate mucosal changes characterized by altered vascularity, congestion (edema), erosions, erythema, friability and mucus were found in the transverse colon, at the hepatic flexure, in the ascending colon, in the cecum, at the appendiceal orifice and at the ileocecal valve. Biopsies were taken with a cold forceps for histology. Verification of patient identification for the specimen was done. Estimated blood loss was minimal. Scattered moderate inflammation characterized by erythema, friability, granularity and aphthous ulcerations was found in the distal ileum and in the terminal ileum. Biopsies were taken with a cold forceps for histology. Verification of patient identification for the specimen was done. Estimated blood loss was minimal. Hematin (altered blood/wemseq-hjmbpl-kguw material) was found in the sigmoid colon, at the splenic flexure, in the transverse colon, in the ascending colon and in the cecum. Stool was found in the recto-sigmoid colon, in the sigmoid colon, in the descending colon, in the transverse colon, in the ascending colon and in the cecum. Fluid aspiration for bacterial cultures, Clostridium difficile and Gram stain was performed. Impression: - Preparation of the colon was fair. - Patent end-to-end colo-colonic anastomosis, characterized by healthy appearing mucosa. - Patchy moderate mucosal changes were found in the transverse colon, at the hepatic flexure, in the ascending colon, in the cecum, at the appendiceal orifice and at the ileocecal valve secondary to colitis. Biopsied. - Moderate inflammation was found in the ileum secondary to ileitis. Biopsied. - Blood in the sigmoid colon, at the splenic flexure, in the transverse colon, in the ascending colon and in the cecum. - Stool in the recto-sigmoid colon, in the sigmoid colon, in the descending colon, in the transverse colon, in the ascending colon and in the cecum. Fluid aspiration performed. Recommendation: - Return patient to hospital proctor for ongoing care. - Resume regular diet. - Vancocin (vancomycin) 125 mg PO QID for 2 weeks. - Workup for Crohn's disease including blood work, antibody testing and MRI enterography inpatient versus outpatient - Repeat colonoscopy is recommended. The colonoscopy date will be determined after pathology results from today's exam become available for review. - Continue present medications. Procedure Code(s): --- Professional --- 33137, Colonoscopy, flexible; with biopsy, single or multiple CPT copyright 2021 [employer]. All rights reserved. The codes documented in this report are preliminary and upon professional fee coder review may be revised to meet current compliance requirements. Yohan Perez DO 04/27/2023 10:16:07 AM This report has been signed electronically. Number of Addenda: 0 Note Initiated On: 04/27/2023 9:24 AM
[2023-04-27] MEDS: Metoprolol Tartrate 25 MG Tablet PO ×2 (11:06→22:10)
[2023-04-27] MEDS: DULoxetine Hcl 60 MG Capsule PO (11:06)
[2023-04-27] MEDS: Pantoprazole Sodium 40 MG in 0.9% Normal Saline (100mL MB+) 100 ML 330 MG IV ×2 (11:09→22:09)
[2023-04-27] MEDS: LORazepam 1 MG Tablet PO ×2 (11:42→22:11)
[2023-04-27] MEDS: Vancomycin 125 MG/5 ML Susp PO.SYRINGE PO ×2 (11:42→18:27)
[2023-04-27 11:49] LABS: Erythrocyte Sedimentation Rate < 1 mm/hr (0-20)
[2023-04-27] MEDS: HEPARIN/D5w 25,000 UNITS 25,000 UNITS/250 ML IV.SOLN. 10 UNITS CONT INF (11:51)
[2023-04-27 11:58] LABS: Partial Thromboplast Time 27.1 Seconds (24.1-36.2)
[2023-04-27 12:24] LABS: Vitamin B12 358 pg/mL (211-911)
[2023-04-27 12:25] LABS: CPK Total, Creatine Kinase 71 U/L (39-308); Magnesium 1.8 mg/dL (1.6-2.6)
[2023-04-27 13:06] LABS: CRP < 2.90 mg/L (0.0-3.0)
--- NOTE | 2023-04-27 13:28 | CASEMGMT ---
IVY FERRERA Assessment: Face to Face with pt for initial transition planning/care coordination assessment. RN MAISHA introduced self and role at [facility], pt voices understanding and consents to assessment. Pt is A&O x4 and answers all questions appropriately at this time. Pt sitting on edge of bed eating lunch in no distress. Care providers, pharmacy, and demographics verified/updated. Admitting Dx: BRAVO PCP:Marsah Specialists:Erica, cardio Preferred Pharmacy: [facility] Insurance: [facility], [employer] Prescription Benefit: yes LNOK: Dominique Landon dtr; Savanah Lin, chelsea other Living Arrangements: Pt lives alone in a two story home with 4 steps to enter with a rail on both sides. Pt reports he is I in ADL's and denies concerns at home. Transportation: Pt drives self and denies concerns with transportation. DME:denies HHC/SNF: Pt has had a nurse from his insurance visit a few times. Pt denies SNF stays. Pt states no concerns with going home at time of dc. He states he has outpt PT set up at [facility] to start on the for his back. He would like to keep this appt and denies any further homegoing needs. Pt states no further concerns/needs. CM to follow. Advised pt to ask CM if any further question/concerns/needs arise, voices understanding. Pt Goal: Home with outpt therapy already set up Plan: Home with outpt therapy already set up
[2023-04-27 13:36] LABS: Phosphorus 2.2 mg/dL (2.5-4.9)
[2023-04-27] MEDS: Warfarin 0.5 MG Tablet PO (16:51)
[2023-04-27 18:18] LABS: Partial Thromboplast Time 57.1 Seconds (24.1-36.2)
[2023-04-27] MEDS: Sodium Ferric Gluconat/Sucrose 250 MG in 0.9% Normal Saline (250mL Bag) 250 ML 135 MG IV (18:27)
[2023-04-27] MEDS: MELATONIN 10 MG TABLET PO (22:11)
[2023-04-28] VITALS (7 sets, daily range): BP systolic 89–126; BP diastolic 55–68; PULSE 79–100; RESP 16; TEMP 36.6–36.8; O2SAT 94–98
[2023-04-28] MEDS: Vancomycin 125 MG/5 ML Susp PO.SYRINGE PO ×5 (00:11→23:12)
[2023-04-28 01:02] LABS: Partial Thromboplast Time 180.1 Seconds (24.1-36.2)
[2023-04-28] MEDS: Piperacil/Tazobactam 3.375 GM in 0.9% Normal Saline (50mL MB+) 50 ML IV (05:24)
[2023-04-28 08:30] LABS: Basophil# 0.05 X10^3/uL; Basophil% 0.6 % (0-1); Eosinophil# 0.25 X10^3/uL; Eosinophils% 2.9 % (0-5); Hematocrit 20.9 % (40-54); Hemoglobin 6.5 g/dL (13.0-16.5); Lymphocyte % 10.6 % (19-41); Mean Corp Hgb Conc 31.1 g/dL (32-36); Mean Corpuscular Hgb 25.2 pg (27.0-32.0); Mean Platelet Vol. 9.2 fl (6.2-12.0); Monocyte# 1.27 X10^3/uL; NRBC Flagged by Analyzer 0 % (0-5); Neutrophil # 5.96 X10^3/uL (2.7-7.7); Neutrophil % 70.3 % (47-70); Platelet Count 201 K/mm3 (150-450); RBC Distribution Width CV 19.9 % (11.6-14.6); RBC Distribution Width SD 58.2 fl (35.1-43.9); Red Blood Count 2.58 M/mm3 (4.6-6.2); White Blood Count 8.5 K/mm3 (4.4-11.0)
[2023-04-28 08:43] LABS: Anion Gap 3 (5-15); BUN 10 mg/dL (7-18); BUN/Creat Ratio 9.9 RATIO (10-20); Calcium,Total 8.1 mg/dL (8.5-10.1); Chloride 111 mmol/L (98-107); Creatinine, Serum 1.01 mg/dL (0.70-1.30); EST Glomerular Filtration Rate 76 mL/min (>60); Est Glom Filt Rate - Afr Amer 92 mL/min (>60); Estimated Creatinine Clearance 66.16 ml/min; Glucose 103 mg/dL (74-106); Potassium 3.6 mmol/L (3.5-5.1); Sodium Level 141 mmol/L (136-145)
[2023-04-28 08:51] LABS: AST(SGOT) 19 U/L (15-37); Alanine Aminotransfer ALT/SGPT 22 U/L (16-61); Albumin, Serum 2.6 g/dL (3.2-5.0); Alkaline Phosphatase 85 U/L (45-117); Bilirubin, Direct 0.23 mg/dL (0.00-0.30); GGTP 41 U/L (15-85); Globulin 3.1 g/dL (2.2-4.2); International Normalized Ratio 1.5; Protein, Total 5.7 g/dL (6.4-8.2)
[2023-04-28 08:53] LABS: Partial Thromboplast Time 97.5 Seconds (24.1-36.2)
[2023-04-28] MEDS: DULoxetine Hcl 60 MG Capsule PO (09:14)
[2023-04-28] MEDS: Pantoprazole Sodium 40 MG in 0.9% Normal Saline (100mL MB+) 100 ML 330 MG IV (09:14)
[2023-04-28] MEDS: Na Biphos/Potassium Phosphate PACKET 1 PACKET PO ×3 (09:14→22:19)
[2023-04-28] MEDS: Magnesium Chloride 64 MG Delay Rel.Tablet 128 MG PO ×2 (09:15→22:19)
--- NOTE | 2023-04-28 10:32 | PN.HOSP_ITS ---
Reason for Visit Reason for Visit: Diagnoses Enterocolitis due to Clostridium difficile, not specified as recurrent ( 3) Iron deficiency anemia, unspecified (04/25/23) Post-traumatic stress disorder, unspecified (04/25/23) Paroxysmal atrial fibrillation (04/25/23) Hemorrhage of anus and rectum (04/25/23) Gastrointestinal hemorrhage, unspecified (04/25/23) Personal history of other diseases of the circulatory system (04/25/23) Presence of prosthetic heart valve (04/25/23) Objective Data Objective Data Vital Signs: Vital Signs Temp Pulse Resp BP Pulse Ox O2 Del Method O2 Flow Rate 98.2 F 98 16 89/58 L 98 Room Air 2 04/28/23 09:22 04/28/23 09:22 04/28/23 09:22 04/28/23 09:22 04/28/23 09:22 04/28/23 09:22 04/26/23 09:53 Oxygen Flow Rate (L/min) 2 Oxygen Delivery Method Room Air Weight: 213 lb 6 oz Body Mass Index (BMI) 28.9 Intake & Output: Intake and Output for Last 24 Hours 04/26/23 04/27/23 04/28/23 23:59 23:59 23:59 Intake Total 2245.12 / 2245.12 1837.50 / 2137.50 894.48 / 894.48 Output Total 1000 / 1000 Balance 1245.12 / 1245.12 1837.50 / 2137.50 894.48 / 894.48 Lab / Micro Data 04/28/23 08:10 04/28/23 08:10 Labs: Laboratory Results - last 24 hr 04/27/23 11:30: ESR < 1, APTT 27.1, Phosphorus 2.2 L, Magnesium 1.8, Total Creatine Kinase 71, C-React Prot Ext Range < 2.90, Vitamin B12 358, Folate 10.90 04/27/23 17:58: APTT 57.1 H 04/28/23 00:10: APTT 180.1 H* 04/28/23 08:10: WBC 8.5, RBC 2.58 L, Hgb 6.5 L, Hct 20.9 L, MCV 81.0, MCH 25.2 L , MCHC 31.1 L, RDW Std Deviation 58.2 H, RDW Coeff of Rich 19.9 H, Plt Count 201, MPV 9.2, Immature Gran % (Auto) 0.600, Neut % (Auto) 70.3 H, Lymph % (Auto) 10.6 L, [place] % (Auto) 15.0 H, Eos % (Auto) 2.9, Baso % (Auto) 0.6, Absolute Neuts (auto) 6.0, Absolute Lymphs (auto) 0.90, Nucleated RBC % 0, PT 18.0 H, INR 1.5, APTT 97.5 H*, Sodium 141, Potassium 3.6, Chloride 111 H, Carbon Dioxide 27.0, Anion Gap 3 L, BUN 10, Creatinine 1.01, Estim Creat Clear Calc 66.16, Est GFR (MDRD) Af Amer 92, Est GFR (MDRD) Non-Af 76, BUN/Creatinine Ratio 9.9 L, Glucose 103, Calcium 8.1 L, Total Bilirubin 0.60, Direct Bilirubin 0.23, GGT 41, AST 19, ALT 22, Alkaline Phosphatase 85, Total Protein 5.7 L, Albumin 2.6 L, Globulin 3.1 Micro: Microbiology 04/27/23 Unknown Stool C. difficile GDH Antigen & Toxins - Final 04/27/23 Unknown Stool C. difficile DNA Amplification - Final 04/27/23 Unknown Stool Enteric Bacteriology - Final Physical Exam Narrative Seen and examined. Patient did not had any further bleeding after yesterday. Actually feels good but hemoglobin dropped to 6.5. Blood pressure also 89 systolic but patient does not have dizziness lightheadedness headache or other hypotensive symptoms. We will recheck the blood pressure. PRBC ordered. No abdominal pain chest pain or shortness of breath. Patient admitted with rectal bleed bright red since yesterday. Had 2 times after admission last 1 about 4 AM. No abdominal pain. No chest pain or shortness of breath. Patient has mechanical aortic valve lobaplatin ago and since then he is on Coumadin. Physical exam General: Alert, Oriented x3, Cooperative HEENT: Atraumatic, PERRLA, EOMI, Normocephalic Oral: No Gingival or Mucosal Lesions/ Ulcerations Neck: Supple, No JVD, Negative Carotid Bruits Lungs: Air entry diminished in bilateral lung bases. No crepitation/rhonchi Cardiovascular: Regular rate, Regular Rhythm, Normal S1, Normal S2, mechanical aortic valve click Abdomen: Bowel Sounds Present, Soft, Non Tender, Non-Distended : No renal angle tenderness. No suprapubic tenderness. Extremities: No edema, Capillary Refill Less than 3 Seconds Skin: No rashes, No breakdown Musculoskeletal: No Tenderness to Palpation of Joints or Extremities. ROM full and intact. Neurological: Cranial nerves II-XII grossly intact, DTR 2+/4. No acute focal neurological deficit. Psych/Mental Status: Normal Affect, Appropriate. Assessment & Plan Assessment/Plan (1) Gastrointestinal bleed: QUALIFIERS: GI bleed type/associated pathology: anorectal hemo rrhage Qualified Code(s): K62.5 - Hemorrhage of anus and rectum (2) Paroxysmal atrial fibrillation: PLAN: Plan 70-year-old gentleman was admitted on monitored bed through ED for rectal bleeding that started the morning of admission. Initially small amount but later had large amount of blood with no clots. Patient on warfarin for history of mechanical heart valve. No abdominal pain fever or rectal pain. 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 Acute GI blood loss due to acute and active lower GI bleed and coagulopathy, less likely with the rapid transit: BUN 19 improved from 25. Patient was last admitted in August 24 acute GI bleed and both upper and lower endoscopies showed angiodysplasia in cecum and following it pseudomembranous colitis which were presumed to be the culprits. CTA abdomen reviewed which shows active GI bleeding of right colon/cecum. Other findings were moderate right pleural effusion periumbilical abdominal wall hernia containing small bowel. Patient presented with severe anemia hemoglobin around 7.3 hematocrit 25% but platelet count normal. Patient had 3 units of PRBC transfusion. Initially patient was started on Protonix drip with bolus octreotide drip but later order finding lower GI bleed and discussion of bow machine operator, Protonix drip changed to 40 mg IV every 12 and octreotide drip discontinued. Patient also on Zosyn. Patient INR 2.7 and with further 2 bleeding episode, vitamin K 5 mg was given at night. Clear liquid started. Bowel prep from 2 PM and colonoscopy tomorrow AM. Last globin 7.9. 04/27: Patient stated he had 4 more dark red blood after started on colon prep yesterday. The patient had colonoscopy in the morning. Patent end-to-end colocolonic anastomosis, healthy-appearing mucosa. Patchy moderate mucosal changes in transverse colon hepatic flexure, AC, cecum and appendiceal orifice at IC valve secondary to colitis biopsied. Moderate inflammation in the ileum secondary to ileitis. Blood in sigmoid colon at the splenic flexure transverse colon before meals and cecum. Vancomycin 125 mg p.o. 4 times daily for 2 weeks. Work-up for Crohn's disease including blood work antibody testing and MRI enterography as outpatient. Repeat colonoscopy recommended. 04/28: Despite multiple PRBC transfusion and iron infusion, hemoglobin dropped to 6.5/21% MCV normal but MCH and MCHC low. RDW high. Reticulocyte panel shows high reticulocyte count with immature reticulocyte fraction therefore suspicion of possible hemolytic anemia. Detailed Vanessa test, LDH and haptoglobin ordered. Zosyn can cause hemolytic anemia therefore discontinued. Abdominal exam is normal. As per colonoscopy, there is suspicion of inflammatory bowel disease or other colitis therefore autoimmune markers have been ordered by bow machine operator. On folic acid and B12 supplement. Enteric bacteriology panel negative. C. difficile toxin and antigen A and B are negative. C. difficile PCR positive toxin and C. difficile detected, and 0-7 Nabb 1?B1. Continue oral vancomycin.It reflects recent past infection of C. difficile but not acute. Continue p.o. vancomycin. 2. 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 Coagulopathy. Monitor INR daily. As soon as GI bleed is controlled, anticoagulant will be started with IV heparin drip. 04/27 INR 1.4. Patient was started on IV heparin drip. Warfarin to resume from today's evening. 04/28: INR 1.5. Continue IV heparin drip as per nomogram. 3. #Paroxysmal atrial fibrillation 04/28 heart rate is controlled. INR is subtherapeutic therefore IV heparin bridging treatment. -Continue beta-edith 4. #Depression -Continue duloxetine 5. #DVT ppx: On IV heparin drip. Total time of the visit including total time spent in counseling or coordination of care, (more than 50% of the total time, spent in obtaining medical information from nurses and other ancillary care providers,explaining to the patient about labs, imaging, diagnosis and management of active complex medical conditions of severe anemia requiring iron infusion and PRBC transfusion, concern of hemolytic anemia, need for anticoagulation with mechanical artificial bowel), discussion with GI sr solutions consultant, discussion with nursing staff review of labs and imaging is 45 minutes. Clinical Impression(s) from Imaging Studies Abdomen/Pelvis CTA 04/25/23 16:25 IMPRESSION: 1. Active GI bleeding of the right colon/cecum. 2. Moderate volume right pleural effusion. 3. Periumbilical abdominal wall hernia containing small bowel. Charges/Coding Visit Charges Inpatient E&M: 58918 [facility] Hosp L3
[2023-04-28] MEDS: Sodium Ferric Gluconat/Sucrose 250 MG in 0.9% Normal Saline (250mL Bag) 250 ML 135 MG IV (10:43)
[2023-04-28 11:11] LABS: LDH 223 U/L (87-241)
[2023-04-28] MEDS: Folic Acid 1 MG Tablet PO (11:44)
[2023-04-28] MEDS: Potassium Chloride Oral Tablet 20 MEQ 40 MEQ PO (11:45)
[2023-04-28] MEDS: Cyanocobalamin 500 MCG Tablet 1000 MCG PO (11:45)
--- NOTE | 2023-04-28 16:09 | PN.GI_ITS ---
Subjective Subjective Patient has not had any more bleeding today. He is tolerating a normal diet. He denies any chest pain or shortness of breath. His INR did drop to 1.5. He was on a heparin drip and is getting 2 units of packed red blood cells for hemoglobin of 6.5. Objective Data Objective Data Vital Signs: Vital Signs Temp Pulse Resp BP Pulse Ox O2 Del Method O2 Flow Rate 97.8 F 100 16 99/58 L 96 Room Air 2 04/28/23 11:59 04/28/23 11:59 04/28/23 11:59 04/28/23 11:59 04/28/23 11:59 04/28/23 11:59 04/26/23 09:53 Oxygen Flow Rate (L/min) 2 Oxygen Delivery Method Room Air Weight: 213 lb 6 oz Body Mass Index (BMI) 28.9 Intake & Output: Intake and Output for Last 24 Hours 04/26/23 04/27/23 04/28/23 23:59 23:59 23:59 Intake Total 2245.12 / 2245.12 1837.50 / 2137.50 894.48 / 894.48 Output Total 1000 / 1000 Balance 1245.12 / 1245.12 1837.50 / 2137.50 894.48 / 894.48 Lab / Micro Data 04/28/23 08:10 04/28/23 08:10 Labs: Laboratory Results - last 24 hr 04/25/23 14:50: Crossmatch See Detail 04/25/23 14:50: Crossmatch See Detail 04/27/23 17:58: APTT 57.1 H 04/28/23 00:10: APTT 180.1 H* 04/28/23 08:10: WBC 8.5, RBC 2.58 L, Hgb 6.5 L, Hct 20.9 L, MCV 81.0, MCH 25.2 L , MCHC 31.1 L, RDW Std Deviation 58.2 H, RDW Coeff of Rich 19.9 H, Plt Count 201, MPV 9.2, Immature Gran % (Auto) 0.600, Neut % (Auto) 70.3 H, Lymph % (Auto) 10.6 L, [place] % (Auto) 15.0 H, Eos % (Auto) 2.9, Baso % (Auto) 0.6, Absolute Neuts (auto) 6.0, Absolute Lymphs (auto) 0.90, Nucleated RBC % 0, PT 18.0 H, INR 1.5, APTT 97.5 H*, Sodium 141, Potassium 3.6, Chloride 111 H, Carbon Dioxide 27.0, An ion Gap 3 L, BUN 10, Creatinine 1.01, Estim Creat Clear Calc 66.16, Est GFR (MDRD) Af Amer 92, Est GFR (MDRD) Non-Af 76, BUN/Creatinine Ratio 9.9 L, Glucose 103, Calcium 8.1 L, Total Bilirubin 0.60, Direct Bilirubin 0.23, GGT 41, AST 19, ALT 22, Alkaline Phosphatase 85, Lactate Dehydrogenase 223, Total Protein 5.7 L, Albumin 2.6 L, Globulin 3.1 04/28/23 10:27: Crossmatch See Detail Micro: Microbiology 04/27/23 Unknown Stool C. difficile GDH Antigen & Toxins - Final 04/27/23 Unknown Stool C. difficile DNA Amplification - Final 04/27/23 Unknown Stool Enteric Bacteriology - Final Physical Exam Narrative Seen and examined. Physical exam General: Alert, Oriented x3, Cooperative HEENT: Atraumatic, PERRLA, EOMI, Normocephalic Oral: No Gingival or Mucosal Lesions/ Ulcerations Neck: Supple, No JVD, Negative Carotid Bruits Lungs: Air entry diminished in bilateral lung bases. No crepitation/rhonchi Cardiovascular: Regular rate, Regular Rhythm, Normal S1, Normal S2, mechanical aortic valve click Abdomen: Bowel Sounds Present, Soft, Non Tender, Non-Distended : No renal angle tenderness. No suprapubic tenderness. Extremities: No edema, Capillary Refill Less than 3 Seconds Skin: No rashes, No breakdown Musculoskeletal: No Tenderness to Palpation of Joints or Extremities. ROM full and intact. Neurological: Cranial nerves II-XII grossly intact, DTR 2+/4. No acute focal neurological deficit. Psych/Mental Status: Normal Affect, Appropriate. Assessment & Plan Assessment/Plan (1) Gastrointestinal bleed: QUALIFIERS: GI bleed type/associated pathology: anorectal hemorrhage Qualified Code(s): K62.5 - Hemorrhage of anus and rectum (2) History of endocarditis: (3) H/O pulmonic valve replacement: (4) History of mechanical aortic valve replacement: (5) Paroxysmal atrial fibrillation: (6) Post traumatic stress disorder: PLAN: Plan Bright red blood per rectum -Unclear upper versus lower. Does have slight elevation in BUN and given blood was becoming darker may be upper in nature -He was admitted 08/2022 for acute GI bleed but upper and lower endoscopies showed angiodysplasia in cecum and following it pseudomembranous colitis which were presumed to be the culprits -His colonoscopy displays ulcerations with congestion and erythema in the terminal ileum and right sided colon. Stool studies were positive for fecal leukocytes negative for C. difficile and B toxin but positive for PCR. I started him on empiric vancomycin because we will be starting him on methylprednisolone for some Crohn's disease. All other stool cultures were negative for Yersinia which can have a similar presentation and sometimes Campylobacter as they can cause the enterocolitis. Research suggested that using half-maximal intravenous corticosteroids in people admitted to the hospital with concomitant antibiotic therapy (oral vancomycin) was a more effective approach than using standard high doses of IBD corticosteroids in the setting of colitis flare.? Instead of putting him on 40 mg every 8 hours or hydrocortisone 100 mg every 8 hours I will only put him on methylprednisolone to 40 mg a day. History of pulmonic valve replacement and mechanical aortic valve -Patient is on Coumadin, INR 2.7. INR is down to 1.5. -Once and dips below therapeutic range may need heparin drip -Monitor daily INRs Paroxysmal atrial fibrillation -Therapeutic on Coumadin at present with INR 2.7 that now is down to 1.5. I am okay with an heparin drip -Continue beta-edith DVT ppx: Presently therapeutic on Coumadin, will need SCDs once patient below threshold Charges/Coding Visit Charges Inpatient E&M: 97955 [facility] H[facility] L3
[2023-04-28 16:30] LABS: Partial Thromboplast Time 70.7 Seconds (24.1-36.2)
[2023-04-28] MEDS: Warfarin 0.5 MG Tablet PO (17:15)
[2023-04-28] MEDS: 0.9% Saline Lock 10 ML Syringe IV (17:23)
[2023-04-28] MEDS: Ascorbic Acid 500 MG Tablet PO (17:32)
[2023-04-28] MEDS: Metoprolol Tartrate 25 MG Tablet PO (22:19)
[2023-04-28] MEDS: MELATONIN 10 MG TABLET PO (22:20)
[2023-04-28] MEDS: Pantoprazole Sodium 40 MG Tablet PO (22:21)
[2023-04-28 23:04] LABS: Partial Thromboplast Time 42.6 Seconds (24.1-36.2)
[2023-04-28] MEDS: LORazepam 1 MG Tablet PO (23:11)
[2023-04-28] MEDS: HEPARIN/D5w 25,000 UNITS 25,000 UNITS/250 ML IV.SOLN. 5 UNITS CONT INF (23:36)
[2023-04-29 05:16] VITALS: BP 127/58; PULSE 75; RESP 16; TEMP 36.6; O2SAT 97
[2023-04-29] MEDS: Na Biphos/Potassium Phosphate PACKET 1 PACKET PO ×3 (05:16→20:46)
[2023-04-29] MEDS: Vancomycin 125 MG/5 ML Susp PO.SYRINGE PO ×4 (05:16→23:41)
[2023-04-29 07:20] LABS: Absolute Lymphocyte Count 0.86 X10^3/uL (0.83-4.51); Absolute Neutrophil Count 13.8 X10^3/uL (2.0-7.7); Basophil# 0.03 X10^3/uL; Basophil% 0.2 % (0-1); Hematocrit 26.3 % (40-54); Hemoglobin 8.1 g/dL (13.0-16.5); Lymphocyte # 0.86 X10^3/ul (0.83-4.51); Lymphocyte % 5.3 % (19-41); Mean Corp Hgb Conc 30.8 g/dL (32-36); Mean Corpuscular Hgb 25.8 pg (27.0-32.0); Mean Corpuscular Volume 83.8 fL (80-94); Mean Platelet Vol. 9.7 fl (6.2-12.0); Monocyte# 1.34 X10^3/uL; Monocyte% 8.3 % (0-10); NRBC Flagged by Analyzer 0.2 % (0-5); Neutrophil # 13.79 X10^3/uL (2.7-7.7); Neutrophil % 85.2 % (47-70); POSITIVE MORPHOLOGY YES; Platelet Count 259 K/mm3 (150-450); RBC Distribution Width CV 20.2 % (11.6-14.6); Red Blood Count 3.14 M/mm3 (4.6-6.2); White Blood Count 16.2 K/mm3 (4.4-11.0)
[2023-04-29 07:28] LABS: International Normalized Ratio 1.3; Prothrombin Time (Protime)PT. 16.1 SECONDS (11.7-14.9)
[2023-04-29 07:30] LABS: Partial Thromboplast Time 42.9 Seconds (24.1-36.2)
[2023-04-29 07:33] LABS: Differential Indicated SCAN CRITERIA MET
[2023-04-29 07:40] LABS: Anion Gap 7 (5-15); BUN 10 mg/dL (7-18); BUN/Creat Ratio 11.1 RATIO (10-20); Calcium,Total 8.5 mg/dL (8.5-10.1); Chloride 109 mmol/L (98-107); EST Glomerular Filtration Rate 86 mL/min (>60); Est Glom Filt Rate - Afr Amer 104 mL/min (>60); Estimated Creatinine Clearance 74.25 ml/min; Glucose 117 mg/dL (74-106); Potassium 4.4 mmol/L (3.5-5.1); Sodium Level 141 mmol/L (136-145)
[2023-04-29] MEDS: Potassium Chloride Oral Tablet 20 MEQ 40 MEQ PO (07:58)
[2023-04-29] MEDS: Ascorbic Acid 500 MG Tablet PO ×2 (07:58→17:07)
[2023-04-29] MEDS: Cyanocobalamin 500 MCG Tablet 1000 MCG PO (07:59)
[2023-04-29] MEDS: Folic Acid 1 MG Tablet PO (07:59)
[2023-04-29 08:03] VITALS: BP 102/57; PULSE 69; RESP 16; TEMP 36.6; O2SAT 97
[2023-04-29 09:18] LABS: Anisocytosis 2+; Differential Comment SCANNED; Hypochromasia 1+; Macrocytosis 1+; Microcytosis 1+
[2023-04-29 09:58] VITALS: PULSE 69
[2023-04-29] MEDS: DULoxetine Hcl 60 MG Capsule PO (09:58)
[2023-04-29] MEDS: Metoprolol Tartrate 25 MG Tablet PO ×2 (09:58→20:47)
[2023-04-29] MEDS: Pantoprazole Sodium 40 MG Tablet PO ×2 (09:59→20:46)
[2023-04-29] MEDS: Magnesium Chloride 64 MG Delay Rel.Tablet 128 MG PO ×2 (09:59→20:46)
--- NOTE | 2023-04-29 12:11 | PN.HOSP_ITS ---
Reason for Visit Reason for Visit: Diagnoses Enterocolitis due to Clostridium difficile, not specified as recurrent ( 3) Iron deficiency anemia, unspecified (04/25/23) Post-traumatic stress disorder, unspecified (04/25/23) Paroxysmal atrial fibrillation (04/25/23) Hemorrhage of anus and rectum (04/25/23) Gastrointestinal hemorrhage, unspecified (04/25/23) Personal history of other diseases of the circulatory system (04/25/23) Presence of prosthetic heart valve (04/25/23) Objective Data Objective Data Vital Signs: Vital Signs Temp Pulse Resp BP Pulse Ox O2 Del Method O2 Flow Rate 97.8 F 69 16 102/57 L 97 Room Air 2 04/29/23 08:03 04/29/23 09:58 04/29/23 08:03 04/29/23 08:03 04/29/23 08:03 04/29/23 08:03 04/26/23 09:53 Oxygen Flow Rate (L/min) 2 Oxygen Delivery Method Room Air Weight: 213 lb 6 oz Body Mass Index (BMI) 28.9 Intake & Output: Intake and Output for Last 24 Hours 04/27/23 04/28/23 04/29/23 23:59 23:59 23:59 Intake Total 1837.50 / 2137.50 1225.88 / 1525.88 641.58 / 641.58 Balance 1837.50 / 2137.50 1225.88 / 1525.88 641.58 / 641.58 Lab / Micro Data 04/29/23 07:10 04/29/23 07:10 Labs: Laboratory Results - last 24 hr 04/25/23 14:50: Crossmatch See Detail 04/25/23 14:50: Crossmatch See Detail 04/28/23 10:27: Crossmatch See Detail 04/28/23 16:05: APTT 70.7 H 04/28/23 18:45: Direct Antiglob Test NEG w/POLYSPECIFIC 04/28/23 22:47: APTT 42.6 H 04/29/23 07:10: WBC 16.2 H, RBC 3.14 L, Hgb 8.1 L, Hct 26.3 L, MCV 83.8, MCH 25.8 L, MCHC 30.8 L, RDW Std Deviation 59.0 H, RDW Coeff of Rich 20.2 H, Plt Count 259, MPV 9.7, Immature Gran % (Auto) 1.000 H, Neut % (Auto) 85.2 H, Lymph % (Auto) 5.3 L, [place] % (Auto) 8.3, Eos % (Auto) 0.0, Baso % (Auto) 0.2, Absolute Neuts (auto) 13.8 H, Absolute Lymphs (auto) 0.86, Nucleated RBC % 0.2, Differential Comment SCANNED, Hypochromasia 1+, Anisocytosis 2+, Microcytosis 1+, Macrocytosis 1+, PT 16.1 H, INR 1.3, APTT 42.9 H, Sodium 141, Potassium 4.4, Chloride 109 H, Carbon Dioxide 25.0, Anion Gap 7, BUN 10, Creatinine 0.90, Estim Creat Clear Calc 74.25, Est GFR (MDRD) Af Amer 104, Est GFR (MDRD) Non-Af 86, BUN/Creatinine Ratio 11.1, Glucose 117 H, Calcium 8.5 Micro: Microbiology 04/27/23 Unknown Stool C. difficile GDH Antigen & Toxins - Final 04/27/23 Unknown Stool C. difficile DNA Amplification - Final 04/27/23 Unknown Stool Enteric Bacteriology - Final Physical Exam Narrative Seen and examined. Patient did not had bleeding last 2 days. Hemoglobin better at 8.1. INR still subtherapeutic. Patient walking nursing station with no abdominal pain. Heparin drip was changed to Lovenox. Physical exam General: Alert, Oriented x3, Cooperative HEENT: Atraumatic, PERRLA, EOMI, Normocephalic Oral: No Gingival or Mucosal Lesions/ Ulcerations Neck: Supple, No JVD, Negative Carotid Bruits Lungs: Air entry diminished in bilateral lung bases. No crepitation/rhonchi Cardiovascular: Regular rate, Regular Rhythm, Normal S1, Normal S2, mechanical aortic valve click Abdomen: Bowel Sounds Present, Soft, Non Tender, Non-Distended : No renal angle tenderness. No suprapubic tenderness. Extremities: No edema, Capillary Refill Less than 3 Seconds Skin: Mild bruise on the right antecubital region from IV line. Musculoskeletal: No Tenderness to Palpation of Joints or Extremities. ROM full and intact. Neurological: Cranial nerves II-XII grossly intact, DTR 2+/4. No acute focal neurological deficit. Psych/Mental Status: Normal Affect, Appropriate. Assessment & Plan Assessment/Plan (1) Gastrointestinal bleed: QUALIFIERS: GI bleed type/associated pathology: anorectal hemorrhage Qualified Code(s): K62.5 - Hemorrhage of anus and rectum (2) Paroxysmal atrial fibrillation: PLAN: Plan 70-year-old gentleman was admitted on monitored bed through ED for rectal bleeding that started the morning of admission. Initially small amount but lat er had large amount of blood with no clots. Patient on warfarin for history of mechanical heart valve. No abdominal pain fever or rectal pain. 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 Acute GI blood loss due to acute and active lower GI bleed and coagulopathy, less likely with the rapid transit: BUN 19 improved from 25. Patient was last admitted in August 24 acute GI bleed and both upper and lower endoscopies showed angiodysplasia in cecum and following it pseudomembranous colitis which were presumed to be the culprits. CTA abdomen reviewed which shows active GI bleeding of right colon/cecum. Other findings were moderate right pleural effusion periumbilical abdominal wall hernia containing small bowel. Patient presented with severe anemia hemoglobin around 7.3 hematocrit 25% but platelet count normal. Patient had 3 units of PRBC transfusion. Initially patient was started on Protonix drip with bolus octreotide drip but later order finding lowe r GI bleed and discussion of operations professional, Protonix drip changed to 40 mg IV every 12 and octreotide drip discontinued. Patient also on Zosyn. Patient INR 2.7 and with further 2 bleeding episode, vitamin K 5 mg was given at night. Clear liquid started. Bowel prep from 2 PM and colonoscopy tomorrow AM. Last globin 7.9. 04/27: Patient stated he had 4 more dark red blood after started on colon prep yesterday. The patient had colonoscopy in the morning. Patent end-to-end colocolonic anastomosis, healthy-appearing mucosa. Patchy moderate mucosal changes in transverse colon hepatic flexure, AC, cecum and appendiceal orifice at IC valve secondary to colitis biopsied. Moderate inflammation in the ileum secondary to ileitis. Blood in sigmoid colon at the splenic flexure transverse colon before meals and cecum. Vancomycin 125 mg p.o. 4 times daily for 2 weeks. Work-up for Crohn's disease including blood work antibody testing and MRI enterography as outpatient. Repeat colonoscopy recommended. 04/28: Despite multiple PRBC transfusion and iron infusion, hemoglobin dropped to 6.5/21% MCV normal but MCH and MCHC low. RDW high. Reticulocyte panel shows high reticulocyte count with immature reticulocyte fraction therefore suspicion of possible hemolytic anemia. Detailed Vanessa test, LDH and haptoglobin ordered. Zosyn can cause hemolytic anemia therefore discontinued. Abdominal exam is normal. As per colonoscopy, there is suspicion of inflammatory bowel disease or other colitis therefore autoimmune markers have been ordered by operations professional. On folic acid and B12 supplement. Enteric bacteriology panel negative. C. difficile toxin and antigen A and B are negative. C. difficile PCR positive toxin and C. difficile detected, and 0-7 Nabb 1?B1. Continue oral vancomycin.It reflects recent past infection of C. difficile but not acute. Continue p.o. vancomycin. 04/29: Hemolytic work-up negative. LDH normal. Total bilirubin normal. Direct Vanessa test negative. Autoimmune work-up pending including SPEP and GINO studies. GGT normal. INR 1.3. Haptoglobin pending. H&H 8.06/29%. IV heparin drip discontinued probably not maintaining therapeutic level therefore Lovenox started. Continue warfarin. We will prefer going slow with warfarin to avoid b leeding. Monitor labs including CBC, BMP, mag and Phos. 2. 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 Coagulopathy. Monitor INR daily. As soon as GI bleed is controlled, anti coagulant will be started with IV heparin drip. 04/27 INR 1.4. Patient was started on IV heparin drip. Warfarin to resume from today's evening. 04/28: INR 1.5. Continue IV heparin drip as per nomogram. 04/29 INR 1.3. Lovenox bridging with warfarin. 3. #Paroxysmal atrial fibrillation 04/28 heart rate is controlled. INR is subtherapeutic therefore IV heparin bridging treatment. -Continue beta-edith 4. #Depression -Continue duloxetine 5. #DVT ppx: As mentioned above Total time of the visit including total time spent in counseling or coordination of care, (more than 50% of the total time, spent in obtaining medical information from nurses and other ancillary care providers,explaining to the patient about labs, imaging, diagnosis and management of active complex medical conditions of severe anemia requiring iron infusion and PRBC transfusion, concern of hemolytic anemia, need for anticoagulation with mechanical artificial bowel), discussion with GI infrastructure consultant, discussion with nursing staff review of labs and imaging is 45 minutes. Clinical Impression(s) from Imaging Studies Abdomen/Pelvis CTA 04/25/23 16:25 IMPRESSION: 1. Active GI bleeding of the right colon/cecum. 2. Moderate volume right pleural effusion. 3. Periumbilical abdominal wall hernia containing small bowel. Charges/Coding Visit Charges Inpatient E&M: 62069 Subs Hosp L2
[2023-04-29] MEDS: Ferrous Sulfate 325 MG Tablet PO (12:46)
[2023-04-29 13:56] VITALS: BP 123/81; PULSE 80; RESP 16; TEMP 36.7; O2SAT 98
--- NOTE | 2023-04-29 14:48 | EX.PCM.PN.GI ---
Subjective Subjective Patient is doing well without signs of GI bleeding. He is tolerating a diet. He is up and walking around the floor. Objective Data Objective Data Vital Signs: Vital Signs Temp Pulse Resp BP Pulse Ox O2 Del Method O2 Flow Rate 98.0 F 80 16 123/81 H 98 Room Air 2 04/29/23 13:56 04/29/23 13:56 04/29/23 13:56 04/29/23 13:56 04/29/23 13:56 04/29/23 13:56 04/26/23 09:53 Oxygen Flow Rate (L/min) 2 Oxygen Delivery Method Room Air Weight: 213 lb 6 oz Body Mass Index (BMI) 28.9 Intake & Output: Intake and Output for Last 24 Hours 04/27/23 04/28/23 04/29/23 23:59 23:59 23:59 Intake Total 1837.50 / 2137.50 1225.88 / 1525.88 667.98 / 667.98 Balance 1837.50 / 2137.50 1225.88 / 1525.88 667.98 / 667.98 Lab / Micro Data 04/29/23 07:10 04/29/23 07:10 Labs: Laboratory Results - last 24 hr 04/25/23 14:50: Crossmatch See Detail 04/28/23 16:05: APTT 70.7 H 04/28/23 18:45: Direct Antiglob Test NEG w/POLYSPECIFIC 04/28/23 22:47: APTT 42.6 H 04/29/23 07:10: WBC 16.2 H, RBC 3.14 L, Hgb 8.1 L, Hct 26.3 L, MCV 83.8, MCH 25.8 L, MCHC 30.8 L, RDW Std Deviation 59.0 H, RDW Coeff of Rich 20.2 H, Plt Count 259, MPV 9.7, Immature Gran % (Auto) 1.000 H, Neut % (Auto) 85.2 H, Lymph % (Auto) 5.3 L, [place] % (Auto) 8.3, Eos % (Auto) 0.0, Baso % (Auto) 0.2, Absolute Neuts (auto) 13.8 H, Absolute Lymphs (auto) 0.86, Nucleated RBC % 0.2, Differential Comment SCANNED, Hypochromasia 1+, Anisocytosis 2+, Microcytosis 1+, Macrocytosis 1+, PT 16.1 H, INR 1.3, APTT 42.9 H, Sodium 141, Potassium 4.4, Chloride 109 H, Carbon Dioxide 25.0, Anion Gap 7, BUN 10, Creatinine 0.90, Estim Creat Clear Calc 74.25, Est GFR (MDRD) Af Amer 104, Est GFR (MDRD) Non-Af 86, BUN/Creatinine Ratio 11.1, Glucose 117 H, Calcium 8.5 Micro: Microbiology 04/27/23 Unknown Stool C. difficile GDH Antigen & Toxins - Final 04/27/23 Unknown Stool C. difficile DNA Amplification - Final 04/27/23 Unknown Stool Enteric Bacteriology - Final Physical Exam Narrative Seen and examined. Physical exam General: Alert, Oriented x3, Cooperative HEENT: Atraumatic, PERRLA, EOMI, Normocephalic Oral: No Gingival or Mucosal Lesions/ Ulcerations Neck: Supple, No JVD, Negative Carotid Bruits Lungs: Air entry diminished in bilateral lung bases. No crepitation/rhonchi Cardiovascular: Regular rate, Regular Rhythm, Normal S1, Normal S2, mechanical aortic valve click Abdomen: Bowel Sounds Present, Soft, Non Tender, Non-Distended : No renal angle tenderness. No suprapubic tenderness. Extremities: No edema, Capillary Refill Less than 3 Seconds Skin: No rashes, No breakdown Musculoskeletal: No Tenderness to Palpation of Joints or Extremities. ROM full and intact. Neurological: Cranial nerves II-XII grossly intact, DTR 2+/4. No acute focal neurological deficit. Psych/Mental Status: Normal Affect, Appropriate. Assessment & Plan Assessment/Plan (1) Gastrointestinal bleed: QUALIFIERS: GI bleed type/associated pathology: anorectal hemorrhage Qualified Code(s): K62.5 - Hemorrhage of anus and rectum (2) History of endocarditis: (3) H/O pulmonic valve replacement: (4) History of mechanical aortic valve replacement: (5) Paroxysmal atrial fibrillation: (6) Post traumatic stress disorder: PLAN: Plan Bright red blood per rectum -Unclear upper versus lower. Does have slight elevation in BUN and given blood was becoming darker may be upper in nature -He was admitted 08/2022 for acute GI bleed but upper and lower endoscopies showed angiodysplasia in cecum and following it pseudomembranous colitis which were presumed to be the culprits -His colonoscopy displays ulcerations with congestion and erythema in the terminal ileum and right sided colon. Stool studies were positive for fecal leukocytes negative for C. difficile and B toxin but positive for PCR. I started him on empiric vancomycin because we will be starting him on methylprednisolone for some Crohn's disease. All other stool cultures were negative for Yersinia which can have a similar presentation and sometimes Campylobacter as they can cause the enterocolitis. Research suggested that using half-maximal intravenous corticosteroids in people admitted to the hospital with concomitant antibiotic therapy (oral vancomycin) was a more effective approach than using standard high doses of IBD corticosteroids in the setting of colitis flare.? Instead of putting him on 40 mg every 8 hours or hydrocortisone 100 mg every 8 hours I will only put him on methylprednisolone to 40 mg a day. History of pulmonic valve replacement and mechanical aortic valve -Patient is on Coumadin, INR 2.7. INR is down to 1.5. -Once and dips below therapeutic range may need heparin drip -Monitor daily INRs Paroxysmal atrial fibrillation -Therapeutic on Coumadin at present with INR 2.7 that now is down to 1.5. I am okay with an heparin drip -Continue beta-edith -04/29/2023 - INR still subtherapeutic. Patient is doing well and hemoglobin is 8.1. Continue to trend. DVT ppx: Presently therapeutic on Coumadin, will need SCDs once patient below threshold Charges/Coding Visit Charges Inpatient E&M: 81096 Subs Hosp L3
[2023-04-29] MEDS: Enoxaparin 100 MG/ML Syringe SC (17:07)
[2023-04-29] MEDS: Warfarin 0.5 MG Tablet PO (17:08)
[2023-04-29 20:47] VITALS: PULSE 85
[2023-04-29 20:57] VITALS: BP 114/64; PULSE 85; RESP 16; TEMP 36.9; O2SAT 94
[2023-04-29] MEDS: MELATONIN 10 MG TABLET PO (23:41)
[2023-04-30] MEDS: Na Biphos/Potassium Phosphate PACKET 1 PACKET PO (05:27)
[2023-04-30] MEDS: Enoxaparin 100 MG/ML Syringe SC ×2 (05:27→18:20)
[2023-04-30] MEDS: Vancomycin 125 MG/5 ML Susp PO.SYRINGE PO ×4 (05:27→23:00)
[2023-04-30 05:32] VITALS: BP 128/54; PULSE 67; RESP 16; TEMP 36.6; O2SAT 100
[2023-04-30 06:43] LABS: Absolute Lymphocyte Count 1.68 X10^3/uL (0.83-4.51); Absolute Neutrophil Count 14.5 X10^3/uL (2.0-7.7); Basophil# 0.06 X10^3/uL; Basophil% 0.3 % (0-1); Eosinophil# 0.06 X10^3/uL; Eosinophils% 0.3 % (0-5); Hematocrit 25.8 % (40-54); Hemoglobin 7.7 g/dL (13.0-16.5); Lymphocyte # 1.68 X10^3/ul (0.83-4.51); Mean Corp Hgb Conc 29.8 g/dL (32-36); Mean Corpuscular Hgb 25.6 pg (27.0-32.0); Mean Corpuscular Volume 85.7 fL (80-94); Mean Platelet Vol. 10.1 fl (6.2-12.0); Monocyte# 2.16 X10^3/uL; Monocyte% 11.6 % (0-10); NRBC Flagged by Analyzer 0.3 % (0-5); Neutrophil # 14.54 X10^3/uL (2.7-7.7); Neutrophil % 77.8 % (47-70); POSITIVE DIFFERENTIAL YES; POSITIVE MORPHOLOGY YES; Platelet Count 273 K/mm3 (150-450); RBC Distribution Width CV 21.9 % (11.6-14.6); RBC Distribution Width SD 61.7 fl (35.1-43.9); Red Blood Count 3.01 M/mm3 (4.6-6.2); White Blood Count 18.7 K/mm3 (4.4-11.0)
[2023-04-30 06:45] LABS: Differential Indicated SCAN CRITERIA MET
[2023-04-30 07:00] LABS: International Normalized Ratio 1.4; Prothrombin Time (Protime)PT. 17.5 SECONDS (11.7-14.9)
[2023-04-30 07:07] LABS: Anion Gap 4 (5-15); BUN 15 mg/dL (7-18); BUN/Creat Ratio 15.5 RATIO (10-20); Calcium,Total 8.7 mg/dL (8.5-10.1); Chloride 110 mmol/L (98-107); Creatinine, Serum 0.97 mg/dL (0.70-1.30); EST Glomerular Filtration Rate 80 mL/min (>60); Est Glom Filt Rate - Afr Amer 96 mL/min (>60); Estimated Creatinine Clearance 68.89 ml/min; Glucose 111 mg/dL (74-106); Magnesium 2.4 mg/dL (1.6-2.6); Phosphorus 2.4 mg/dL (2.5-4.9); Potassium 4.4 mmol/L (3.5-5.1); Sodium Level 138 mmol/L (136-145)
[2023-04-30 07:46] LABS: Anisocytosis 1+
[2023-04-30 08:01] VITALS: BP 139/62; PULSE 72; RESP 18; TEMP 36.9; O2SAT 100
[2023-04-30] MEDS: Sodium Ferric Gluconat/Sucrose 250 MG in 0.9% Normal Saline (250mL Bag) 250 ML 135 MG IV (08:03)
[2023-04-30] MEDS: Cyanocobalamin 500 MCG Tablet 1000 MCG PO (08:07)
[2023-04-30] MEDS: Folic Acid 1 MG Tablet PO (08:07)
[2023-04-30 08:08] VITALS: PULSE 72
[2023-04-30] MEDS: Metoprolol Tartrate 25 MG Tablet PO ×2 (08:08→22:38)
[2023-04-30] MEDS: Potassium Chloride Oral Tablet 20 MEQ 40 MEQ PO (08:08)
[2023-04-30] MEDS: Magnesium Chloride 64 MG Delay Rel.Tablet 128 MG PO (08:09)
[2023-04-30] MEDS: Pantoprazole Sodium 40 MG Tablet PO ×2 (08:10→22:38)
[2023-04-30] MEDS: DULoxetine Hcl 60 MG Capsule PO (08:10)
[2023-04-30] MEDS: 0.9% Saline Lock 10 ML Syringe IV ×3 (08:19→22:58)
[2023-04-30] MEDS: Ascorbic Acid 500 MG Tablet PO ×2 (08:19→16:30)
--- NOTE | 2023-04-30 08:32 | PN.HOSP_ITS ---
Reason for Visit Reason for Visit: Diagnoses Enterocolitis due to Clostridium difficile, not specified as recurrent ( 3) Iron deficiency anemia, unspecified (04/25/23) Post-traumatic stress disorder, unspecified (04/25/23) Paroxysmal atrial fibrillation (04/25/23) Hemorrhage of anus and rectum (04/25/23) Gastrointestinal hemorrhage, unspecified (04/25/23) Personal history of other diseases of the circulatory system (04/25/23) Presence of prosthetic heart valve (04/25/23) Subjective Subjective Not having any further bleeding, no abdominal pain today Objective Data Objective Data Vital Signs: Vital Signs Temp Pulse Resp BP Pulse Ox O2 Del Method O2 Flow Rate 98.4 F 72 18 139/62 H 100 Room Air 2 04/30/23 08:01 04/30/23 08:08 04/30/23 08:01 04/30/23 08:01 04/30/23 08:01 04/30/23 08:01 04/26/23 09:53 Oxygen Flow Rate (L/min) 2 Oxygen Delivery Method Room Air Weight: 96.785 kg Body Mass Index (BMI) 28.9 Intake & Output: Intake and Output for Last 24 Hours 04/28/23 04/29/23 04/30/23 23:59 23:59 23:59 Intake Total 1225.88 / 1525.88 667.98 / 667.98 Balance 1225.88 / 1525.88 667.98 / 667.98 Lab / Micro Data 04/30/23 06:05 04/30/23 06:05 Labs: Laboratory Results - last 24 hr 04/29/23 07:10: Differential Comment SCANNED, Hypochromasia 1+, Anisocytosis 2+, Microcytosis 1+, Macrocytosis 1+ 04/30/23 06:05: WBC 18.7 H, RBC 3.01 L, Hgb 7.7 L, Hct 25.8 L, MCV 85.7, MCH 25.6 L, MCHC 29.8 L, RDW Std Deviation 61.7 H, RDW Coeff of Rich 21.9 H, Plt Count 273, MPV 10.1, Immature Gran % (Auto) 1.000 H, Neut % (Auto) 77.8 H, Lymph % (Auto) 9.0 L, [place] % (Auto) 11.6 H, Eos % (Auto) 0.3, Baso % (Auto) 0.3, Absolute Neuts (auto) 14.5 H, Absolute Lymphs (auto) 1.68, Nucleated RBC % 0.3, Differential Comment COMMENT, Diff Path Review May foll, Anisocytosis 1+, PT 17.5 H, INR 1.4, Sodium 138, Potassium 4.4, Chloride 110 H, Carbon Dioxide 24.0, Anion Gap 4 L, BUN 15, Creatinine 0.97, Estim Creat Clear Calc 68.89, Est GFR (MDRD) Af Amer 96, Est GFR (MDRD) Non-Af 80, BUN/Creatinine Ratio 15.5, Glucose 111 H, Calcium 8.7, Phosphorus 2.4 L, Magnesium 2.4 Micro: Microbiology 04/27/23 Unknown Stool C. difficile GDH Antigen & Toxins - Final 04/27/23 Unknown Stool C. difficile DNA Amplification - Final 04/27/23 Unknown Stool Enteric Bacteriology - Final Physical Exam Narrative General: Alert, oriented, no apparent distress HEENT: Atraumatic, normocephalic Eyes: Anicteric, normal conjunctiva, extraocular movements grossly intact Neck: Supple Respiratory: Clear to auscultation bilaterally, normal respiratory effort Cardiovascular: Regular rate GI: Soft, nontender, nondistended Extremities: No edema Musculoskeletal: Moving all extremities Neuro: No overt focal neurological deficits Skin: No rashes appreciated Psych: Cooperative Assessment & Plan Assessment/Plan (1) Gastrointestinal bleed: QUALIFIERS: GI bleed type/associated pathology: anorectal hemorrhage Qualified Code(s): K62.5 - Hemorrhage of anus and rectum (2) Paroxysmal atrial fibrillation: PLAN: Plan 70-year-old gentleman was admitted on monitored bed through ED for rectal bl eeding that started the morning of admission. Initially small amount but later had large amount of blood with no clots. Patient on warfarin for history of mechanical heart valve. No abdominal pain fever or rectal pain. 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 Patient was last admitted in August 24 acute GI bleed and both upper and lower endoscopies showed angiodysplasia in cecum and following it pseudomembranous colitis which were presumed to be the culprits. CTA abdomen reviewed which shows active GI bleeding of right colon/cecum. Other findings were moderate right pleural effusion periumbilical abdominal wall hernia containing small bowel. Patient presented with severe anemia hemoglobin around 7.3 hematocrit 25% but platelet count normal. Patient had 3 units of PRBC transfusion. Initially patient was started on Protonix drip with bolus octreotide drip but later order finding lower GI bleed and discussion of retail management keyholder, Protonix drip changed to 40 mg IV every 12 and octreotide drip discontinued. Patient also on Zosyn. Patient INR 2.7 and with further 2 bleeding episode, vitamin K 5 mg was given at night. Clear liquid started. Bowel prep from 2 PM and colonoscopy tomorrow AM. Last globin 7.9. 04/27: Patient stated he had 4 more dark red blood after started on colon prep yesterday. The patient had colonoscopy in the morning. Patent end-to-end colocolonic anastomosis, healthy-appearing mucosa. Patchy moderate mucosal changes in transverse colon hepatic flexure, AC, cecum and appendiceal orifice at IC valve secondary to colitis biopsied. Moderate inflammation in the ileum secondary to ileitis. Blood in sigmoid colon at the splenic flexure transverse colon before meals and cecum. Vancomycin 125 mg p.o. 4 times daily for 2 weeks. Work-up for Crohn's disease including blood work antibody testing and MRI enterography as outpatient. Repeat colonoscopy recommended. 04/28: Despite multiple PRBC transfusion and iron infusion, hemoglobin dropped to 6.5/21% MCV normal but MCH and MCHC low. RDW high. Reticulocyte panel shows high reticulocyte count with immature reticulocyte fraction therefore suspicion of possible hemolytic anemia. Detailed Vanessa test, LDH and haptoglobin ordered. Zosyn can cause hemolytic anemia therefore discontinued. Abdominal exam is normal. As per colonoscopy, there is suspicion of inflammatory bowel disease or other colitis therefore autoimmune markers have been ordered by retail management keyholder. On folic acid and B12 supplement. Enteric bacteriology panel negative. C. difficile toxin and antigen A and B are negative. C. difficile PCR positive toxin and C. difficile detected, and 0-7 Nabb 1?B1. Continue oral vancomycin.It reflects recent past infection of C. difficile but not acute. Continue p.o. vancomycin. 04/29: Hemolytic work-up negative. LDH normal. Total bilirubin normal. Direct Vanessa test negative. Autoimmune work-up pending including SPEP and GINO studies. GGT normal. INR 1.3. Haptoglobin pending. H&H 8.1/26%. IV heparin drip discontinued probably not maintaining therapeutic level therefore Lovenox started. Continue warfarin. We will prefer going slow with warfarin to avoid bleeding. Monitor labs including CBC, BMP, mag and Phos. -04/30: Hemoglobin 7.7, no further GI bleeding. 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 Coagulopathy. Monitor INR daily. As soon as GI bleed is controlled, anticoagulant will be sta rted with IV heparin drip. 04/27 INR 1.4. Patient was started on IV heparin drip. Warfarin to resume from today's evening. 04/28: INR 1.5. Continue IV heparin drip as per nomogram. 04/29 INR 1.3. Lovenox bridging with warfarin. -04/30: Continue to bridge, will likely need to go home on Lovenox with Coumadin and monitoring of INR #Paroxysmal atrial fibrillation 04/28 heart rate is controlled. INR is subtherapeutic therefore IV heparin bridging treatment. -Continue beta-edith #Depression -Continue duloxetine #DVT ppx: As mentioned above Time spent in the patient's overall evaluation,decision-making process, review of diagnostic data, adjustment of management, discussion with other providers, nursing nursing and ancillary staff involved in patient's care documentation, 36 minutes Charges/Coding Visit Charges Inpatient E&M: 86581 Subs Hosp L2
[2023-04-30] MEDS: 0.9% Normal Saline (250mL Bag) 250 ML 15 ML IV (10:10)
[2023-04-30] MEDS: Ferrous Sulfate 325 MG Tablet PO (11:53)
[2023-04-30 13:07] LABS: ANTINUCLEAR ANTIBODIES DIRECT Negative (Negative)
[2023-04-30 13:07] LABS: Anti-Centromere B Ab <0.2 AI (0.0-0.9); Anti-Chromatin <0.2 AI (0.0-0.9); Anti-Jo <0.2 AI (0.0-0.9); Anti-Scleroderma-70 AB <0.2 AI (0.0-0.9); Anti-dsDNA Ab 4 IU/mL (0-9); RNP Ab <0.2 AI (0.0-0.9); SJOGREN'S Anti-SS-A test < 0.2 AI (0.0-0.9); SJOGREN'S Anti-SS-B test < 0.2 AI (0.0-0.9); Smith Ab <0.2 AI (0.0-0.9)
--- NOTE | 2023-04-30 13:33 | CASEMGMT ---
Addendum entered by Kwame Cross 04/30/23 16:55: Cost of Lovenox injections @ [facility] pharmacy $150.07 and vanco $49.22 for total of $199.29. Pt made aware and states this is affordable for him. He states he prefers to pick them up at the pharmacy tomorrow, rather than have them delivered to his room. IVY FERRERA placed call back to [facility] pharmacy and they were made aware and will get medications ready for pt to picker feeder tomorrow. Original Note: IVY FERRERA NOTE: Pt to discharge home on Lovenox injections and PO vanc per Dr Chang, which she has e-scribed to pt's pharmacy, [facility]. Call to [facility] for zhang check. Cost for Lovenox is $122.70 and vanco is $17.32 @ [facility], but pharmacist states they do not have any Lovenox in stock and they would need to order it in. Pt states is okay to get the new medications from [facility] retail pharmacy. Call to Delfina in the pharmacy who states she will call [facility] to have these scripts transferred to [facility] pharmacy. Georgie BADILLO RN, CM
[2023-04-30 14:04] LABS: Pathologist Review Reviewed
[2023-04-30 15:07] LABS: Albumin 2.9 g/dL (2.9-4.4); Alpha-1-Globulins 0.1 g/dL (0.0-0.4); Alpha-2-Globulins 0.4 g/dL (0.4-1.0); Cytoplasmic Ab (C-ANCA) <1:20 titer (Neg:<1:20); HEPATITIS B SURFACE AG Negative (Negative); Hep C Antibodies Non Reactive (Non Reactive); Hepatitis A IgM Antibody Negative (Negative); Hepatitis B Core AB IgM Negative (Negative); Immunoglobulin A 324 mg/dL (61-437); Immunoglobulin G 1134 mg/dL (603-1613); Immunoglobulin M 48 mg/dL (15-143); PROEL- TOTAL PROTEIN 5.2 g/dL (6.0-8.5); Perinuclear Ab (P-ANCA) <1:20 titer (Neg:<1:20); QNTFERON TB Mitogen Value > 10.00 IU/mL (.); QNTFERON TB Nil Value 0.02 IU/mL (.); QNTFERON TB1+ Ag Value 0.05 IU/mL (.); QNTFERON TB2+ Ag Value 0.04 IU/mL (.); QNTIFERON TB Positive Criteria Negative (Negative)
--- NOTE | 2023-04-30 16:15 | PN.GI_ITS ---
Subjective Subjective Patient is not having any signs or symptoms of GI bleeding. Objective Data Objective Data Vital Signs: Vital Signs Temp Pulse Resp BP Pulse Ox O2 Del Method O2 Flow Rate 98.4 F 72 18 139/62 H 100 Room Air 2 04/30/23 08:01 04/30/23 08:08 04/30/23 08:01 04/30/23 08:01 04/30/23 08:01 04/30/23 08:01 04/26/23 09:53 Oxygen Flow Rate (L/min) 2 Oxygen Delivery Method Room Air Weight: 213 lb 6 oz Body Mass Index (BMI) 28.9 Intake & Output: Intake and Output for Last 24 Hours 04/28/23 04/29/23 04/30/23 23:59 23:59 23:59 Intake Total 1225.88 / 1525.88 667.98 / 667.98 647.75 / 647.75 Balance 1225.88 / 1525.88 667.98 / 667.98 647.75 / 647.75 Lab / Micro Data 04/30/23 06:05 04/30/23 06:05 Labs: Laboratory Results - last 24 hr 04/27/23 11:30: Total Protein (PEP) 5.2 L, Globulin 2.3, IgG 1134, IgA 324, IgM 48, Immunofixation Screen Comment, Albumin (GINO) 2.9, Albumin/Globulin (GINO) 1.3, Vczyd-3-Gqbqnaivp GINO 0.1, Ylicr-4-Frvckpcyf GINO 0.4, Beta-Globulins (GINO) 0.8, Gamma Globulins (GINO) 1.0, GINO M-Arie Not Observed, GINO Comments Comment, c-ANCA Antibody <1:20, Atypical p-ANCA 1:40 H, p-ANCA Antibody <1:20, NESHA-1 Antibody <0.2, SS-A/Ro IgG Antibody < 0.2, SS-B/La IgG Antibody < 0.2, Sm (Saldaña) Antibody <0.2, GROUND SUPPORT EQUIPMENT FITTER Antibody <0.2, Scl-70 Scleroderma Ab <0.2, Double Strand DNA Ab 4, Centromere B Antibody <0.2, Hepatitis A IgM Ab Negative, Hep Bs Antigen Negative, Hep B Core IgM Ab Negative, Hepatitis C Ab (EIA) Non Reactive, Hep C Ab Comment Comment, TB Test (QFT) Nil 0.02, TB Test (QFT) Mitogen > 10.00, TB Test (QFT) Ag 1 0.05, TB Test (QFT) Ag 2 0.04, TB Test (QFT) Comment, TB Positive Criteria Negative 04/28/23 08:10: SAUL Screen Negative 04/30/23 06:05: WBC 18.7 H, RBC 3.01 L, Hgb 7.7 L, Hct 25.8 L, MCV 85.7, MCH 25.6 L, MCHC 29.8 L, RDW Std Deviation 61.7 H, RDW Coeff of Rich 21.9 H, Plt Count 273, MPV 10.1, Immature Gran % (Auto) 1.000 H, Neut % (Auto) 77.8 H, Lymph % (Auto) 9.0 L, Bowman % (Auto) 11.6 H, Eos % (Auto) 0.3, Baso % (Auto) 0.3, Absolute Neuts (auto) 14.5 H, Absolute Lymphs (auto) 1.68, Nucleated RBC % 0.3, Differential Comment COMMENT, Diff Path Review Reviewed, Anisocytosis 1+, PT 17.5 H, INR 1.4, Sodium 138, Potassium 4.4, Chloride 110 H, Carbon Dioxide 24.0, Anion Gap 4 L, BUN 15, Creatinine 0.97, Estim Creat Clear Calc 68.89, Est GFR (MDRD) Af Amer 96, Est GFR (MDRD) Non-Af 80, BUN/Creatinine Ratio 15.5, Glucose 111 H, Calcium 8.7, Phosphorus 2.4 L, Magnesium 2.4 Micro: Microbiology 04/27/23 Unknown Stool C. difficile GDH Antigen & Toxins - Final 04/27/23 Unknown Stool C. difficile DNA Amplification - Final 04/27/23 Unknown Stool Enteric Bacteriology - Final Physical Exam Narrative General: Alert, oriented, no apparent distress HEENT: Atraumatic, normocephalic Eyes: Anicteric, normal conjunctiva, extraocular movements grossly intact Neck: Supple Respiratory: Clear to auscultation bilaterally, normal respiratory effort Cardiovascular: Regular rate GI: Soft, nontender, nondistended Extremities: No edema Musculoskeletal: Moving all extremities Neuro: No overt focal neurological deficits Skin: No rashes appreciated Psych: Cooperative Assessment & Plan Assessment/Plan (1) Gastrointestinal bleed: QUALIFIERS: GI bleed type/associated pathology: anorectal hemorrhage Qualified Code(s): K62.5 - Hemorrhage of anus and rectum (2) History of endocarditis: (3) H/O pulmonic valve replacement: (4) History of mechanical aortic valve replacement: (5) Paroxysmal atrial fibrillation: (6) Post traumatic stress disorder: PLAN: Plan Bright red blood per rectum -Unclear upper versus lower. Does have slight elevation in BUN and given blood was becoming darker may be upper in nature -He was admitted 08/2022 for acute GI bleed but upper and lower endoscopies showed angiodysplasia in cecum and following it pseudomembranous colitis which were presumed to be the culprits -His colonoscopy displays ulcerations with congestion and erythema in the terminal ileum and right sided colon. Stool studies were positive for fecal leukocytes negative for C. difficile and B toxin but positive for PCR. I started him on empiric vancomycin because we will be starting him on methylprednisolone for some Crohn's disease. All other stool cultures were negative for Yersinia which can have a similar presentation and sometimes Campylobacter as they can cause the enterocolitis. Research suggested that using half-maximal intravenous corticosteroids in people admitted to the hospital with concomitant antibiotic therapy (oral vancomycin) was a more effective approach than using standard high doses of IBD corticosteroids in the setting of colitis flare.? Instead of putting him on 40 mg every 8 hours or hydrocortisone 100 mg every 8 hours I will only put him on methylprednisolone to 40 mg a day. History of pulmonic valve replacement and mechanical aortic valve -Patient is on Coumadin, INR 2.7. INR is down to 1.5. -Once and dips below therapeutic range may need heparin drip -Monitor daily INRs Paroxysmal atrial fibrillation -Therapeutic on Coumadin at present with INR 2.7 that now is down to 1.5. I am okay with an heparin drip -Continue beta-edith -04/29/2023 - INR still subtherapeutic. Patient is doing well and hemoglobin is 8.1. Continue to trend. -04/30/2023- Hemolytic work-up negative. LDH normal. Total bilirubin normal. Direct Vanessa test negative. Autoimmune work-up pending including SPEP and GINO studies. GGT normal. INR 1.3. Lovenox started. Continue warfarin. I will give him iron transfusion.
[2023-04-30] MEDS: Warfarin 0.5 MG Tablet PO (16:29)
[2023-04-30 16:33] VITALS: BP 128/68; PULSE 80; RESP 18; TEMP 36.8; O2SAT 98
[2023-04-30 22:26] VITALS: BP 144/69; PULSE 77; RESP 16; TEMP 36.3; O2SAT 100
[2023-04-30 22:38] VITALS: PULSE 77
[2023-04-30] MEDS: MELATONIN 10 MG TABLET PO (22:38)
[2023-04-30] MEDS: LORazepam 1 MG Tablet PO (22:57)
[2023-05-01] VITALS (15 sets, daily range): BP systolic 90–128; BP diastolic 53–66; PULSE 71–87; RESP 16–18; TEMP 36.3–36.9; O2SAT 95–100
[2023-05-01] MEDS: Vancomycin 125 MG/5 ML Susp PO.SYRINGE PO ×4 (05:03→23:01)
[2023-05-01 05:07] LABS: Haptoglobin 74 mg/dL (34-355)
[2023-05-01 07:43] LABS: Absolute Neutrophil Count 16.7 X10^3/uL (2.0-7.7); Basophil# 0.09 X10^3/uL; Basophil% 0.4 % (0-1); Eosinophil# 0.04 X10^3/uL; Eosinophils% 0.2 % (0-5); Hematocrit 27.2 % (40-54); Lymphocyte % 7.4 % (19-41); Mean Corp Hgb Conc 29.4 g/dL (32-36); Mean Corpuscular Hgb 26.3 pg (27.0-32.0); Mean Corpuscular Volume 89.5 fL (80-94); Mean Platelet Vol. 10.5 fl (6.2-12.0); Monocyte# 2.39 X10^3/uL; NRBC Flagged by Analyzer 0.3 % (0-5); Neutrophil # 16.74 X10^3/uL (2.7-7.7); Neutrophil % 77.4 % (47-70); POSITIVE DIFFERENTIAL YES; POSITIVE MORPHOLOGY YES; Platelet Count 261 K/mm3 (150-450); RBC Distribution Width CV 23.6 % (11.6-14.6); RBC Distribution Width SD 66.4 fl (35.1-43.9); Red Blood Count 3.04 M/mm3 (4.6-6.2); White Blood Count 21.7 K/mm3 (4.4-11.0)
[2023-05-01 07:45] LABS: Differential Indicated SCAN CRITERIA MET
[2023-05-01 08:11] LABS: Anion Gap 3 (5-15); BUN 14 mg/dL (7-18); BUN/Creat Ratio 13.9 RATIO (10-20); Calcium,Total 8.6 mg/dL (8.5-10.1); Chloride 109 mmol/L (98-107); Creatinine, Serum 1.01 mg/dL (0.70-1.30); EST Glomerular Filtration Rate 76 mL/min (>60); Est Glom Filt Rate - Afr Amer 92 mL/min (>60); Estimated Creatinine Clearance 66.16 ml/min; Glucose 89 mg/dL (74-106); Potassium 4.1 mmol/L (3.5-5.1); Sodium Level 139 mmol/L (136-145)
[2023-05-01] MEDS: Cyanocobalamin 500 MCG Tablet 1000 MCG PO (08:54)
[2023-05-01] MEDS: DULoxetine Hcl 60 MG Capsule PO (08:54)
[2023-05-01] MEDS: Metoprolol Tartrate 25 MG Tablet PO ×2 (08:54→22:49)
[2023-05-01] MEDS: Folic Acid 1 MG Tablet PO (08:54)
[2023-05-01] MEDS: Ascorbic Acid 500 MG Tablet PO ×2 (08:54→17:25)
[2023-05-01] MEDS: Pantoprazole Sodium 40 MG Tablet PO ×2 (08:54→21:24)
[2023-05-01 09:01] LABS: Differential Comment SCANNED
[2023-05-01 09:02] LABS: Anisocytosis 2+; Hypochromasia 1+; Macrocytosis 1+; Microcytosis 1+
[2023-05-01 09:08] LABS: International Normalized Ratio 1.6
--- NOTE | 2023-05-01 09:46 | PN.HOSP_ITS ---
Reason for Visit Reason for Visit: Diagnoses Enterocolitis due to Clostridium difficile, not specified as recurrent ( 3) Iron deficiency anemia, unspecified (04/25/23) Post-traumatic stress disorder, unspecified (04/25/23) Paroxysmal atrial fibrillation (04/25/23) Hemorrhage of anus and rectum (04/25/23) Gastrointestinal hemorrhage, unspecified (04/25/23) Personal history of other diseases of the circulatory system (04/25/23) Presence of prosthetic heart valve (04/25/23) Subjective Subjective Patient had 2 episodes of bloody bowel movements overnight, denies any abdominal pain, no nausea, reports the blood was fairly bright but not as much as when he initially presented Objective Data Objective Data Vital Signs: Vital Signs Temp Pulse Resp BP Pulse Ox O2 Del Method O2 Flow Rate 98.0 F 84 16 124/64 H 98 Room Air 2 05/01/23 08:51 05/01/23 08:54 05/01/23 08:51 05/01/23 08:54 05/01/23 08:51 05/01/23 08:51 04/26/23 09:53 Oxygen Flow Rate (L/min) 2 Oxygen Delivery Method Room Air Weight: 96.785 kg Body Mass Index (BMI) 28.9 Intake & Output: Intake and Output for Last 24 Hours 04/29/23 04/30/23 05/01/23 23:59 23:59 23:59 Intake Total 667.98 / 667.98 1067.75 / 1367.75 500 / 500 Balance 667.98 / 667.98 1067.75 / 1367.75 500 / 500 Lab / Micro Data 05/01/23 06:40 05/01/23 06:40 Labs: Laboratory Results - last 24 hr 04/25/23 14:50: Crossmatch See Detail 04/27/23 11:30: Total Protein (PEP) 5.2 L, Globulin 2.3, IgG 1134, IgA 324, IgM 48, Immunofixation Screen Comment, Albumin (GINO) 2.9, Albumin/Globulin (GINO) 1.3, Vhfvl-0-Coxobacpm GINO 0.1, Tfuwu-0-Khjkkbhha GINO 0.4, Beta-Globulins (GINO) 0.8, Gamma Globulins (GINO) 1.0, GINO M-Arie Not Observed, GINO Comments Comment, c-ANCA Antibody <1:20, Atypical p-ANCA 1:40 H, p-ANCA Antibody <1:20, NESHA-1 Antibody <0.2, SS-A/Ro IgG Antibody < 0.2, SS-B/La IgG Antibody < 0.2, Sm (Saldaña) Antibody <0.2, DIRECTOR OF CONTRACTS Antibody <0.2, Scl-70 Scleroderma Ab <0.2, Double Strand DNA Ab 4, Centromere B Antibody <0.2, Hepatitis A IgM Ab Negative, Hep Bs Antigen Negative, Hep B Core IgM Ab Negative, Hepatitis C Ab (EIA) Non Reactive, Hep C Ab Comment Comment, TB Test (QFT) Nil 0.02, TB Test (QFT) Mitogen > 10.00, TB Test (QFT) Ag 1 0.05, TB Test (QFT) Ag 2 0.04, TB Test (QFT) Comment, TB Positive Criteria Negative, Miscellaneous Test 04/28/23 08:10: SAUL Screen Negative, NESHA-1 Antibody Not Reportable, SS-A/Ro IgG Antibody Not Reportable, SS-B/La IgG Antibody Not Reportable, Sm (Saldaña) Antibody Not Reportable, DIRECTOR OF CONTRACTS Antibody Not Reportable, Scl-70 Scleroderma Ab Not Reportable, Double Strand DNA Ab Not Reportable, Centromere B Antibody Not Reportable 04/28/23 18:45: Haptoglobin 74 04/30/23 06:05: Diff Path Review Reviewed 05/01/23 06:40: WBC 21.7 H, RBC 3.04 L, Hgb 8.0 L, Hct 27.2 L, MCV 89.5, MCH 26.3 L, MCHC 29.4 L, RDW Std Deviation 66.4 H, RDW Coeff of Rich 23.6 H, Plt Count 261, MPV 10.5, Immature Gran % (Auto) 3.600 H, Neut % (Auto) 77.4 H, Lymph % (Auto) 7.4 L, Zapata % (Auto) 11.0 H, Eos % (Auto) 0.2, Baso % (Auto) 0.4, Absolute Neuts (auto) 16.7 H, Absolute Lymphs (auto) 1.60, Nucleated RBC % 0.3, Differential Comment SCANNED, Diff Path Review May foll, Hypochromasia 1+, Anisocytosis 2+, Microcytosis 1+, Macrocytosis 1+, PT 19.0 H, INR 1.6, Sodium 139, Potassium 4.1, Chloride 109 H, Carbon Dioxide 27.0, Anion Gap 3 L, BUN 14, Creatinine 1.01, Estim Creat Clear Calc 66.16, Est GFR (MDRD) Af Amer 92, Est GFR (MDRD) Non-Af 76, BUN/Creatinine Ratio 13.9, Glucose 89, Calcium 8.6 Micro: Microbiology 04/27/23 Unknown Stool C. difficile GDH Antigen & Toxins - Final 04/27/23 Unknown Stool C. difficile DNA Amplification - Final 04/27/23 Unknown Stool Enteric Bacteriology - Final Physical Exam Narrative General: Alert, oriented, no apparent distress HEENT: Atraumatic, normocephalic Eyes: Anicteric, normal conjunctiva, extraocular movements grossly intact Neck: Supple Respiratory: Clear to auscultation bilaterally, normal respiratory effort Cardiovascular: Regular rate GI: Soft, nontender, nondistended Extremities: No edema Musculoskeletal: Moving all extremities Neuro: No overt focal neurological deficits Skin: No rashes appreciated Psych: Cooperative Assessment & Plan Assessment/Plan (1) Gastrointestinal bleed: QUALIFIERS: GI bleed type/associated pathology: anorectal hemorrhage Qualified Code(s): K62.5 - Hemorrhage of anus and rectum (2) Paroxysmal atrial fibrillation: PLAN: Plan 70-year-old gentleman was admitted on monitored bed through ED for rectal bleeding that started the morning of admission. Initially small amount but later had large amount of blood with no clots. Patient on warfarin for history of mechanical heart valve. No abdominal pain fever or rectal pain. 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 Patient was last admitted in August 24 acute GI bleed and both upper and lower endoscopies showed angiodysplasia in cecum and following it pseudomembranous colitis which were presumed to be the culprits. CTA abdomen reviewed which shows active GI bleeding of right colon/cecum. Other findings were moderate right pleural effusion periumbilical abdominal wall hernia containing small bowel. Patient presented with severe anemia hemoglobin around 7.3 hematocrit 25% but platelet count normal. Patient had 3 units of PRBC transfusion. Initially patient was started on Protonix drip with bolus octreotide drip but later order finding lower GI bleed and discussion of counter top maker, Protonix drip changed to 40 mg IV every 12 and octreotide drip discontinued. Patient also on Zosyn. P atient INR 2.7 and with further 2 bleeding episode, vitamin K 5 mg was given at night. Clear liquid started. Bowel prep from 2 PM and colonoscopy tomorrow AM. Last globin 7.9. 04/27: Patient stated he had 4 more dark red blood after started on colon prep yesterday. The patient had colonoscopy in the morning. Patent end-to-end colocolonic anastomosis, healthy-appearing mucosa. Patchy moderate mucosal changes in transverse colon hepatic flexure, AC, cecum and appendiceal orifice at IC valve secondary to colitis biopsied. Moderate inflammation in the ileum secondary to ileitis. Blood in sigmoid colon at the splenic flexure transverse colon before meals and cecum. Vancomycin 125 mg p.o. 4 times daily for 2 weeks. Work-up for Crohn's disease including blood work antibody testing and MRI enterography as outpatient. Repeat colonoscopy recommended. 04/28: Despite multiple PRBC transfusion and iron infusion, hemoglobin dropped to 6.5/21% MCV normal but MCH and MCHC low. RDW high. Reticulocyte panel shows high reticulocyte count with immature reticulocyte fraction therefore suspicion of possible hemolytic anemia. Detailed Vanessa test, LDH and haptoglobin ordered. Zosyn can cause hemolytic anemia therefore discontinued. Abdominal exam is normal. As per colonoscopy, there is suspicion of inflammatory bowel disease or other colitis therefore autoimmune markers have been ordered by counter top maker. On folic acid and B12 supplement. Enteric bacteriology panel negative. C. difficile toxin and antigen A and B are negative. C. difficile PCR positive toxin and C. difficile detected, and 0-7 Nabb 1?B1. Continue oral vancomycin.It reflects recent past infection of C. difficile but not acute. Continue p.o. vancomycin. 04/29: Hemolytic work-up negative. LDH normal. Total bilirubin normal. Direct Vanessa test negative. Autoimmune work-up pending including SPEP and GINO studies. GGT normal. INR 1.3. Haptoglobin pending. H&H 8.1/26%. IV heparin drip discontinued probably not maintaining therapeutic level therefore Lovenox started. Continue warfarin. We will prefer going slow with warfarin to avoid bleeding. Monitor labs including CBC, BMP, mag and Phos. -04/30: Hemoglobin 7.7, no further GI bleeding. Remains on Methylpred and oral vanc, if stable tomorrow will transition to 20 mg oral prednisone and 7 more days of oral vancomycin and DC home, discussed with GI -05/01: Hgb 8 but pt w/ 2 bloody BMs x2, AM lovenox held, will discuss w/ GI, trend H&H #History of pulmonic valve replacement and mechanical aortic valve replacement: Patient on warfarin currently on hold as mentioned above. Coagulopathy. Monitor INR daily. As soon as GI bleed is controlled, anticoagulant will be started with IV heparin drip. 04/27 INR 1.4. Patient was started on IV heparin drip. Warfarin to resume from today's evening. 04/28: INR 1.5. Continue IV heparin drip as per nomogram. 04/29 INR 1.3. Lovenox bridging with warfarin. -04/30: Continue to bridge, will likely need to go home on Lovenox with Coumadin and monitoring of INR -05/01: AM lovenox held in light of multiple bloody BMs, trend H&H. May need to consider transitioning to heparin drip and holding Coumadin, INR only 1.6 today #Paroxysmal atrial fibrillation 04/28 heart rate is controlled. INR is subtherapeutic therefore IV heparin bridging treatment. -Continue beta-edith #Depression -Continue duloxetine #DVT ppx: As mentioned above Time spent in the patient's overall evaluation,decision-making process, review of diagnostic data, adjustment of management, discussion with other providers, nursing nursing and ancillary staff involved in patient's care documentation, 36 minutes Charges/Coding Visit Charges Inpatient E&M: 81204 Subs Hosp L2
[2023-05-01 10:38] LABS: Hemoglobin 8.9 g/dL (13.0-16.5)
--- NOTE | 2023-05-01 11:21 | CT_ITS ---
We are attempting to reach an attending provider to discuss findings. An addendum with communication details will be sent when the communication is complete. INDICATION: Recurrent GI bleeding. EXAMINATION: CTA abdomen and pelvis - TECHNIQUE: Routine abdominal CT angiogram protocol was performed with IV contrast. MIP images provided. A radiation dose optimization technique was used for this scan. IV Contrast dosage and agent: 100 mL of Isovue-370. Radiation dose DLP 1173.56 mGy / cm. COMPARISON: CTA of the abdomen and pelvis with and without contrast 04/25/2023. FINDINGS: Lung bases: Moderate right posterior pleural effusion. Mild compressive atelectasis of right posterior lower lobe. Liver: Normal. No bile ductal dilatation. Gallbladder: Multiple radiolucent stones inside the nondilated gallbladder fossa. No intrahepatic or extrahepatic biliary ductal dilatation. Spleen: Normal. Adrenal gland: Normal. Kidneys: Normal. No hydronephrosis or stone formation. Pancreas:Normal. Bowel gas pattern: Nonobstructive.Decreased gaseous distention of midline anterior abdominal hernia of small bowel. It contains air-fluid level. Appendix: Normal. Free air: None. Free fluid: None. Pelvis: Pelvic organs: No mass lesion noted. Bone survey: No aggressive bony lesions. No acute fractures.Mild old central compression fracture of the upper L4 vertebral body is unchanged. Mild old anterior wedge compression fracture of the T11 and T12 vertebral bodies are unchanged. Adenopathy: No significant pathologic adenopathy detected. Other: None. Vascular: Abdominal aorta: No abdominal aortic aneurysm and no demonstrated narrowing. Calcified plaques in the infrarenal abdominal aorta. Celiac artery, SMA, RADHA, right renal artery and left renal artery: No demonstrated narrowing. Right common iliac artery: Mild ectasia with a diameter of 1.5 cm. No demonstrated narrowing. Left common iliac artery: Mild ectasia with a diameter of 1.25 cm but no demonstrated narrowing. Bilateral internal iliac arteries: No demonstrated narrowing. Bilateral external iliac artery; no demonstrated narrowing. Bilateral common femoral arteries: No demonstrated narrowing. Bilateral proximal SFAs: No demonstrated narrowing. Bilateral profunda femoris and: No demonstrated narrowing. CT/CTA Abd/Pelvis W/WO Contrast IMPRESSION: 1. Small hyperdense contrast in the posterior gastric wall suggestive of active arterial extravasation of contrast/active arterial bleeding. 2. No CTA evidence of arterial aneurysm inside the abdomen and pelvis. 3. Decreased gaseous distention of the anterior abdominal wall herniation of small bowel without obstruction, strangulation or ischemia. 4. Multiple radiolucent gallstones densely packing the nondilated gallbladder fossa. This is unchanged. 5. Moderate right posterior pleural effusion and mild compressive atelectasis of right posterior lower lobe are unchanged. 6. No other additional findings or changes when compared to 04/25/2023. Electronically Signed: Brad Flynn MD at 13:25 EST ,
[2023-05-01] MEDS: Ferrous Sulfate 325 MG Tablet PO (11:42)
[2023-05-01 13:33] LABS: Hemoglobin 8.3 g/dL (13.0-16.5)
--- NOTE | 2023-05-01 14:27 | NURSING ---
texted Dr. Perez at 13:43: 314 Swarmer: Did Dr. Chang call you about CTA? Ruby [phone] response at 13:47 Yes she did. Thank you very much for checking. text to Dr. Perez Just wondering if we are going for emergent scope. Radiologist made it sound emergent. response at 13:47 Yes. I am Primary RN updated. 13:50 text sent to Surgery [facility] Chg :FYI I have [address] Perez is supposedly taking for emergent scope. Please let endo charge know patient had handful of crackers half hour ago. In to patient's room with primary RN. pt a&ox3. denies all abd pain. denies all dizziness while sitting at end of bed. CORE DRILLING SUPERVISOR had placed in gown and did chlorahex bath. playground monitor and cspo2 placed on patient. Primary RN bedside rechecking vitals.
--- NOTE | 2023-05-01 14:55 | NURSING ---
Pt left floor to go for emergent procedure.
--- NOTE | 2023-05-01 16:01 | OP.EGD_ITS ---
Patient Name: Markus Nava Procedure Date: 05/01/2023 3:47 PM Date of : 1945 Age: 78 Procedure: Upper GI endoscopy Indications: Acute post hemorrhagic anemia Providers: Yohan Perez DO Medicines: Monitored Anesthesia Care Patient Profile: This is a 78 year old male. Refer to note in patient chart for documentation of history and physical. Patient has symptoms of acute nausea. Complications: No immediate complications. Procedure: Pre-Anesthesia Assessment: - Prior to the procedure, a History and Physical was performed, and patient medications and allergies were reviewed. The patient is competent. The risks and benefits of the procedure and the sedation options and risks were discussed with the patient. All questions were answered and informed consent was obtained. Patient identification and proposed procedure were verified by the physician in the pre-procedure area. Mental Status Examination: alert and oriented. Airway Examination: normal oropharyngeal airway and neck mobility. Respiratory Examination: clear to auscultation. CV Examination: normal. Prophylactic Antibiotics: The patient does not require prophylactic antibiotics. Prior Anticoagulants: The patient has taken no anticoagulant or antiplatelet agents. ASA Grade Assessment: III - A patient with severe systemic disease. After reviewing the risks and benefits, the patient was deemed in satisfactory condition to undergo the procedure. The anesthesia plan was to use monitored anesthesia care (MAC). Immediately prior to administration of medications, the patient was re-assessed for adequacy to receive sedatives. The heart rate, respiratory rate, oxygen saturations, blood pressure, adequacy of pulmonary ventilation, and response to care were monitored throughout the procedure. The physical status of the patient was re-assessed after the procedure. After obtaining informed consent, the endoscope was passed under direct vision. Throughout the procedure, the patient's blood pressure, pulse, and oxygen saturations were monitored continuously. The Endoscope was introduced through the mouth, and advanced to the second part of duodenum. The upper GI endoscopy was accomplished without difficulty. The patient tolerated the procedure well. Scope In: 3:51:00 PM Scope Out: 3:54:11 PM Total Procedure Duration Time 0 hours 3 minutes 11 seconds Findings: The Z-line was irregular and was found 36 cm from the incisors. A medium-sized hiatal hernia was present. A large amount of food (residue) was found in the gastric body. No gross lesions were noted in the second portion of the duodenum. Impression: - Z-line irregular, 36 cm from the incisors. - Medium-sized hiatal hernia. - A large amount of food (residue) in the stomach. - No gross lesions in the second portion of the duodenum. - No specimens collected. Recommendation: - Return patient to hospital proctor for ongoing care. - Resume regular diet. - Continue present medications. Procedure Code(s): --- Professional --- 04331, Esophagogastroduodenoscopy, flexible, transoral; diagnostic, including collection of specimen(s) by brushing or washing, when performed (separate procedure) CPT copyright 2021 [employer]. All rights reserved. The codes documented in this report are preliminary and upon technician support association review may be revised to meet current compliance requirements. Yohan Perez DO 05/01/2023 4:01:00 PM This report has been signed electronically. Number of Addenda: 0 Note Initiated On: 05/01/2023 3:47 PM
--- NOTE | 2023-05-01 16:01 | OP.CCLET_ITS ---
05/01/2023 Donaldo Larson [address] [facility] [place] [address] [place] [address] Re : Upper GI endoscopy procedure for Markus Nava Dear Dr. Larson This procedure was performed on Monday, May 01, 2023. My impressions and recommendations are as follows: Impressions : - Z-line irregular, 36 cm from the incisors. - Medium-sized hiatal hernia. - A large amount of food (residue) in the stomach. - No gross lesions in the second portion of the duodenum. - No specimens collected. Recommendations : - Return patient to hospital proctor for ongoing care. - Resume regular diet. - Continue present medications. My findings are described in the full procedure note, which is enclosed. If I can be of further assistance, please feel free to contact me at . Sincerely, Yohan Perez, 05/01/2023 4:01:00 PM This report has been signed electronically.
[2023-05-01] MEDS: Warfarin 0.5 MG Tablet PO (17:25)
--- NOTE | 2023-05-01 18:00 | NURSING ---
Called lab at 17:30 to tell them I had a STAT lab draw. She said they were on ICU and would be up here next.
[2023-05-01] MEDS: HEPARIN/D5w 25,000 UNITS 25,000 UNITS/250 ML IV.SOLN. 14 UNITS CONT INF (18:35)
[2023-05-01] MEDS: MELATONIN 10 MG TABLET PO (22:49)
[2023-05-01] MEDS: LORazepam 1 MG Tablet PO (22:52)
[2023-05-02] VITALS (10 sets, daily range): BP systolic 94–114; BP diastolic 58–72; PULSE 67–86; RESP 14–18; TEMP 36.4–37.3; O2SAT 96–99
[2023-05-02] MEDS: Vancomycin 125 MG/5 ML Susp PO.SYRINGE PO ×3 (06:48→18:01)
[2023-05-02 08:03] LABS: Absolute Lymphocyte Count 1.72 X10^3/uL (0.83-4.51); Absolute Neutrophil Count 12.6 X10^3/uL (2.0-7.7); Basophil# 0.04 X10^3/uL; Basophil% 0.2 % (0-1); Eosinophil# 0.09 X10^3/uL; Eosinophils% 0.5 % (0-5); Hematocrit 26.3 % (40-54); Lymphocyte # 1.72 X10^3/ul (0.83-4.51); Lymphocyte % 10.4 % (19-41); Mean Corp Hgb Conc 30.4 g/dL (32-36); Mean Corpuscular Hgb 27.2 pg (27.0-32.0); Mean Corpuscular Volume 89.5 fL (80-94); Mean Platelet Vol. 10.1 fl (6.2-12.0); Monocyte# 1.69 X10^3/uL; Monocyte% 10.2 % (0-10); NRBC Flagged by Analyzer 0.2 % (0-5); Neutrophil # 12.64 X10^3/uL (2.7-7.7); Neutrophil % 76.2 % (47-70); POSITIVE DIFFERENTIAL YES; POSITIVE MORPHOLOGY YES; Platelet Count 258 K/mm3 (150-450); RBC Distribution Width SD 72.9 fl (35.1-43.9); Red Blood Count 2.94 M/mm3 (4.6-6.2); White Blood Count 16.6 K/mm3 (4.4-11.0)
[2023-05-02 08:46] LABS: Differential Indicated SCAN CRITERIA MET
[2023-05-02] MEDS: Pantoprazole Sodium 40 MG Tablet PO ×2 (09:08→21:30)
[2023-05-02] MEDS: Folic Acid 1 MG Tablet PO (09:08)
[2023-05-02] MEDS: DULoxetine Hcl 60 MG Capsule PO (09:09)
[2023-05-02] MEDS: Cyanocobalamin 500 MCG Tablet 1000 MCG PO (09:09)
[2023-05-02] MEDS: Ascorbic Acid 500 MG Tablet PO ×2 (09:09→17:56)
[2023-05-02] MEDS: Metoprolol Tartrate 25 MG Tablet PO ×2 (09:18→21:30)
[2023-05-02] MEDS: 0.9% Saline Lock 10 ML Syringe IV (09:20)
[2023-05-02 09:28] LABS: International Normalized Ratio 1.9; Prothrombin Time (Protime)PT. 21.7 SECONDS (11.7-14.9)
--- NOTE | 2023-05-02 09:34 | PCM.PN.HOSP ---
Reason for Visit Reason for Visit: Diagnoses Enterocolitis due to Clostridium difficile, not specified as recurrent (04/25/23) Iron deficiency anemia, unspecified (04/25/23) Post-traumatic stress disorder, unspecified (04/25/23) Paroxysmal atrial fibrillation (04/25/23) Hemorrhage of anus and rectum (04/25/23) Gastrointestinal hemorrhage, unspecified (04/25/23) Personal history of other diseases of the circulatory system (04/25/23) Presence of prosthetic heart valve (04/25/23) Subjective Subjective Patient had bowel movement yesterday shortly before his upper endoscopy that still had some blood however overnight had 1 bowel movement that possibly had slight amount of old blood but no further signs or suggestions of active bleeding. Patient has not yet had bowel movement this a.m., no abdominal pain, sitting up eating breakfast Objective Data Objective Data Vital Signs: Vital Signs Temp Pulse Resp BP Pulse Ox O2 Del Method O2 Flow Rate 98.9 F 86 18 99/59 L 98 Room Air 2 05/02/23 09:16 05/02/23 09:18 05/02/23 09:16 05/02/23 09:16 05/02/23 09:16 05/02/23 09:16 04/26/23 09:53 Oxygen Flow Rate (L/min) 2 Oxygen Delivery Method Room Air Weight: 96.785 kg Body Mass Index (BMI) 28.9 Intake & Output: Intake and Output for Last 24 Hours 04/30/23 05/01/23 05/02/23 23:59 23:59 23:59 Intake Total 1067.75 / 1367.75 800 / 800 296.83 / 296.83 Balance 1067.75 / 1367.75 800 / 800 296.83 / 296.83 Lab / Micro Data 05/02/23 07:20 05/01/23 06:40 Labs: Laboratory Results - last 24 hr 05/01/23 10:14: Hgb 8.9 L 05/01/23 13:22: Hgb 8.3 L 05/01/23 18:06: APTT 32.0 05/02/23 07:20: WBC 16.6 H, RBC 2.94 L, Hgb 8.0 L, Hct 26.3 L, MCV 89.5, MCH 27.2, MCHC 30.4 L, RDW Std Deviation 72.9 H, RDW Coeff of Rich 25.0 H, Plt Count 258, MPV 10.1, Immature Gran % (Auto) 2.500 H, Neut % (Auto) 76.2 H, Lymph % (Auto) 10.4 L, [place] % (Auto) 10.2 H, Eos % (Auto) 0.5, Baso % (Auto) 0.2, Absolute Neuts (auto) 12.6 H, Absolute Lymphs (auto) 1.72, Nucleated RBC % 0.2, PT 21.7 H, INR 1.9 Micro: Microbiology 04/27/23 Unknown Stool C. difficile GDH Antigen & Toxins - Final 04/27/23 Unknown Stool C. difficile DNA Amplification - Final 04/27/23 Unknown Stool Enteric Bacteriology - Final Radiography Diagnostic Testing: Radiology Impression Abdomen/Pelvis CTA 05/01/23 11:21 IMPRESSION: 1. Small hyperdense contrast in the posterior gastric wall suggestive of active arterial extravasation of contrast/active arterial bleeding. 2. No CTA evidence of arterial aneurysm inside the abdomen and pelvis. 3. Decreased gaseous distention of the anterior abdominal wall herniation of small bowel without obstruction, strangulation or ischemia. 4. Multiple radiolucent gallstones densely packing the nondilated gallbladder fossa. This is unchanged. 5. Moderate right posterior pleural effusion and mild compressive atelectasis of right posterior lower lobe are unchanged. 6. No other additional findings or changes when compared to 04/25/2023. Electronically Signed: Brad Flynn MD at 13:25 EST , ADDENDUM: 05/01/23 1348 IMPRESSION: 1. Small hyperdense contrast in the posterior gastric wall suggestive of active arterial extravasation of contrast/active arterial bleeding. 2. No CTA evidence of arterial aneurysm inside the abdomen and pelvis. 3. Decreased gaseous distention of the anterior abdominal wall herniation of small bowel without obstruction, strangulation or ischemia. 4. Multiple radiolucent gallstones densely packing the nondilated gallbladder fossa. This is unchanged. 5. Moderate right posterior pleural effusion and mild compressive atelectasis of right posterior lower lobe are unchanged. 6. No other additional findings or changes when compared to 04/25/2023. N.B. : The above Results were Read Back by Brad Flynn MD to Sadiq Duque RN, and understanding confirmed on 05/01/2023 13:33:41 (ET). Electronically Signed: Brad Flynn MD at 13:25 EST Reading Location ID and State: [address] [place] [address] , Service support , Physical Exam Narrative General: Alert, oriented, no apparent distress HEENT: Atraumatic, normocephalic Eyes: extraocular movements grossly intact Neck: Supple Respiratory: normal respiratory effort Cardiovascular: no edema appreciated GI: nondistended Extremities: Moving all extremities Neuro: No overt focal neurological deficits Psych: Cooperative Assessment & Plan Assessment/Plan (1) Gastrointestinal bleed: QUALIFIERS: GI bleed type/associated pathology: anorectal hemorrhage Qualified Code(s): K62.5 - Hemorrhage of anus and rectum (2) Paroxysmal atrial fibrillation: PLAN: Plan 70-year-old gentleman was admitted on monitored bed through ED for rectal bleeding that started the morning of admission. Initially small amount but later had large amount of blood with no clots. Patient on warfarin for history of mechanical heart valve. No abdominal pain fever or rectal pain. 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 Patient was last admitted in August 24 acute GI bleed and both upper and lower endoscopies showed angiodysplasia in cecum and following it pseudomembranous colitis which were presumed to be the culprits. CTA abdomen reviewed which shows active GI bleeding of right colon/cecum. Other findings were moderate right pleural effusion periumbilical abdominal wall hernia containing small bowel. Patient presented with severe anemia hemoglobin around 7.3 hematocrit 25% but platelet count normal. Patient had 3 units of PRBC transfusion. Initially patient was started on Protonix drip with bolus octreotide drip but later order finding lower GI bleed and discussion of technologist infectious disease, Protonix drip changed to 40 mg IV every 12 and octreotide drip discontinued. Patient also on Zosyn. Patient INR 2.7 and with further 2 bleeding episode, vitamin K 5 mg was given at night. Clear liquid started. Bowel prep from 2 PM and colonoscopy tomorrow AM. Last globin 7.9. 04/27: Patient stated he had 4 more dark red blood after started on colon prep yesterday. The patient had colonoscopy in the morning. Patent end-to-end colocolonic anastomosis, healthy-appearing mucosa. Patchy moderate mucosal changes in transverse colon hepatic flexure, AC, cecum and appendiceal orifice at IC valve secondary to colitis biopsied. Moderate inflammation in the ileum secondary to ileitis. Blood in sigmoid colon at the splenic flexure transverse colon before meals and cecum. Vancomycin 125 mg p.o. 4 times daily for 2 weeks. Work-up for Crohn's disease including blood work antibody testing and MRI enterography as outpatient. Repeat colonoscopy recommended. 04/28: Despite multiple PRBC transfusion and iron infusion, hemoglobin dropped to 6.5/21% MCV normal but MCH and MCHC low. RDW high. Reticulocyte panel shows high reticulocyte count with immature reticulocyte fraction therefore suspicion of possible hemolytic anemia. Detailed Vanessa test, LDH and haptoglobin ordered. Zosyn can cause hemolytic anemia therefore discontinued. Abdominal exam is normal. As per colonoscopy, there is suspicion of inflammatory bowel disease or other colitis therefore autoimmune markers have been ordered by technologist infectious disease. On folic acid and B12 supplement. Enteric bacteriology panel negative. C. difficile toxin and antigen A and B are negative. C. difficile PCR positive toxin and C. difficile detected, and 0-7 Nabb 1?B1. Continue oral vancomycin.It reflects recent past infection of C. difficile but not acute. Continue p.o. vancomycin. 04/29: Hemolytic work-up negative. LDH normal. Total bilirubin normal. Direct Vanessa test negative. Autoimmune work-up pending including SPEP and GINO studies. GGT normal. INR 1.3. Haptoglobin pending. H&H 8.1/26%. IV heparin drip discontinued probably not maintaining therapeutic level therefore Lovenox started. Continue warfarin. We will prefer going slow with warfarin to avoid bleeding. Monitor labs including CBC, BMP, mag and Phos. -04/30: Hemoglobin 7.7, no further GI bleeding. Remains on Methylpred and oral vanc, if stable tomorrow will transition to 20 mg oral prednisone and 7 more days of oral vancomycin and DC home, discussed with GI -05/01: Hgb 8 but pt w/ 2 bloody BMs x2, AM lovenox held, will discuss w/ GI, trend H&H -05/02: After discussing with GI patient had CTA which had concern for active upper GI bleed however emergent endoscopy did not show any bleeding. Patient had a total of 3 bloody bowel movements yesterday and no bright red blood overnight, has not yet had BM this morning. Patient was taken off Lovenox and transition to heparin drip so that could be turned off faster if further bleeding. Hemoglobin 8.0 today, INR up to 1.9 #History of pulmonic valve replacement and mechanical aortic valve replacement: Patient on warfarin currently on hold as mentioned above. Coagulopathy. Monitor INR daily. As soon as GI bleed is controlled, anticoagulant will be started with IV heparin drip. 04/27 INR 1.4. Patient was started on IV heparin drip. Warfarin to resume from today's evening. 04/28: INR 1.5. Continue IV heparin drip as per nomogram. 04/29 INR 1.3. Lovenox bridging with warfarin. -04/30: Continue to bridge, will likely need to go home on Lovenox with Coumadin and monitoring of INR -05/01: AM lovenox held in light of multiple bloody BMs, trend H&H. May need to consider transitioning to heparin drip and holding Coumadin, INR only 1.6 today -05/02: INR up to 1.9, on heparin drip due to half-life given concern for further bleeding #Paroxysmal atrial fibrillation 04/28 heart rate is controlled. INR is subtherapeutic therefore IV heparin bridging treatment. -Continue beta-edith #Depression -Continue duloxetine #DVT ppx: As mentioned above Time spent in the patient's overall evaluation,decision-making process, review of diagnostic data, adjustment of management, discussion with other providers, nursing nursing and ancillary staff involved in patient's care documentation, 36 minutes Charges/Coding Visit Charges Inpatient E&M: 74225 Subs Hosp L2
[2023-05-02 09:53] LABS: Anion Gap 2 (5-15); BUN 16 mg/dL (7-18); BUN/Creat Ratio 14.4 RATIO (10-20); Calcium,Total 8.4 mg/dL (8.5-10.1); Chloride 109 mmol/L (98-107); Creatinine, Serum 1.11 mg/dL (0.70-1.30); EST Glomerular Filtration Rate 68 mL/min (>60); Est Glom Filt Rate - Afr Amer 82 mL/min (>60); Glucose 92 mg/dL (74-106); Potassium 4.1 mmol/L (3.5-5.1); Sodium Level 140 mmol/L (136-145)
[2023-05-02 10:40] LABS: Partial Thromboplast Time 138.8 Seconds (24.1-36.2)
[2023-05-02 10:48] LABS: Anisocytosis 2+; Differential Comment SCANNED; Hypochromasia 1+; Macrocytosis 1+; Microcytosis 1+
--- NOTE | 2023-05-02 11:11 | NURSING ---
Ptt results recieved and heparin gtt stopped for 2 hrs as protocol @ 8836
[2023-05-02] MEDS: Ferrous Sulfate 325 MG Tablet PO (12:15)
[2023-05-02 12:34] LABS: Partial Thromboplast Time 141.6 Seconds (24.1-36.2)
[2023-05-02] MEDS: HEPARIN/D5w 25,000 UNITS 25,000 UNITS/250 ML IV.SOLN. 8 UNITS CONT INF ×2 (13:01→18:01)
[2023-05-02 15:23] LABS: Pathologist Review Reviewed
[2023-05-02 15:27] LABS: Pathologist Review Reviewed
--- NOTE | 2023-05-02 16:26 | PN.GI_ITS ---
Subjective Subjective It was reported that patient had a bloody bowel movement last night. He said it was dark in color. He denies abdominal pain, cramping, nausea or urgency. He denies any diarrhea or constipation. He did have 1 bowel movement today and it did not have any blood in it. Objective Data Objective Data Vital Signs: Vital Signs Temp Pulse Resp BP Pulse Ox O2 Del Method O2 Flow Rate 98.2 F 76 14 114/72 98 Room Air 2 05/02/23 13:43 05/02/23 13:43 05/02/23 13:43 05/02/23 13:43 05/02/23 13:43 05/02/23 13:43 04/26/23 09:53 Oxygen Flow Rate (L/min) 2 Oxygen Delivery Method Room Air Weight: 213 lb 6 oz Body Mass Index (BMI) 28.9 Intake & Output: Intake and Output for Last 24 Hours 04/30/23 05/01/23 05/02/23 23:59 23:59 23:59 Intake Total 1067.75 / 1367.75 800 / 800 1121.51 / 1121.51 Output Total 960 / 960 Balance 1067.75 / 1367.75 800 / 800 161.51 / 161.51 Lab / Micro Data 05/02/23 07:20 05/02/23 07:20 Labs: Laboratory Results - last 24 hr 05/01/23 06:40: Diff Path Review Reviewed 05/01/23 18:06: APTT 32.0 05/02/23 00:41: APTT 141.6 H* 05/02/23 07:20: WBC 16.6 H, RBC 2.94 L, Hgb 8.0 L, Hct 26.3 L, MCV 89.5, MCH 27 .2, MCHC 30.4 L, RDW Std Deviation 72.9 H, RDW Coeff of Rich 25.0 H, Plt Count 258, MPV 10.1, Immature Gran % (Auto) 2.500 H, Neut % (Auto) 76.2 H, Lymph % (Auto) 10.4 L, [place] % (Auto) 10.2 H, Eos % (Auto) 0.5, Baso % (Auto) 0.2, Absolute Neuts (auto) 12.6 H, Absolute Lymphs (auto) 1.72, Nucleated RBC % 0.2, Differential Comment SCANNED, Diff Path Review Reviewed, Hypochromasia 1+, Anisocytosis 2+, Microcytosis 1+, Macrocytosis 1+, PT 21.7 H, INR 1.9, Sodium 140, Potassium 4.1, Chloride 109 H, Carbon Dioxide 29.0, Anion Gap 2 L, BUN 16, Creatinine 1.11, Estim Creat Clear Calc 60.20, Est GFR (MDRD) Af Amer 82, Est GFR (MDRD) Non-Af 68, BUN/Creatinine Ratio 14.4, Glucose 92, Calcium 8.4 L 05/02/23 09:36: APTT 138.8 H* Micro: Microbiology 04/27/23 Unknown Stool C. difficile GDH Antigen & Toxins - Final 04/27/23 Unknown Stool C. difficile DNA Amplification - Final 04/27/23 Unknown Stool Enteric Bacteriology - Final Physical Exam Narrative General: Alert, oriented, no apparent distress HEENT: Atraumatic, normocephalic Eyes: extraocular movements grossly intact Neck: Supple Respiratory: normal respiratory effort Cardiovascular: no edema appreciated GI: nondistended Extremities: Moving all extremities Neuro: No overt focal neurological deficits Psych: Cooperative Assessment & Plan Assessment/Plan (1) Gastrointestinal bleed: QUALIFIERS: GI bleed type/associated pathology: anorectal hemorrhage Qualified Code(s): K62.5 - Hemorrhage of anus and rectum (2) History of endocarditis: (3) H/O pulmonic valve replacement: (4) History of mechanical aortic valve replacement: (5) Paroxysmal atrial fibrillation: (6) Post traumatic stress disorder: PLAN: Plan Bright red blood per rectum -Unclear upper versus lower. Does have slight elevation in BUN and given blood was becoming darker may be upper in nature -He was admitted 08/2022 for acute GI bleed but upper and lower endoscopies showed angiodysplasia in cecum and following it pseudomembranous colitis which were presumed to be the culprits -His colonoscopy displays ulcerations with congestion and erythema in the terminal ileum and right sided colon. Stool studies were positive for fecal leukocytes negative for C. difficile and B toxin but positive for PCR. I started him on empiric vancomycin because we will be starting him on methylprednisolone for some Crohn's disease. All other stool cultures were negative for Yersinia which can have a similar presentation and sometimes Campylobacter as they can cause the enterocolitis. Research suggested that using half-maximal intravenous corticosteroids in people admitted to the hospital with concomitant antibiotic therapy (oral vancomycin) was a more effective approach than using standard high doses of IBD corticosteroids in the setting of colitis flare.? Instead of putting him on 40 mg every 8 hours or hydrocortisone 100 mg every 8 hours I will only put him on methylprednisolone to 40 mg a day. History of pulmonic valve replacement and mechanical aortic valve -Patient is on Coumadin, INR 2.7. INR is down to 1.5. -Once and dips below therapeutic range may need heparin drip -Monitor daily INRs Paroxysmal atrial fibrillation -Therapeutic on Coumadin at present with INR 2.7 that now is down to 1.5. I am okay with an heparin drip -Continue beta-edith -04/29/2023 - INR still subtherapeutic. Patient is doing well and hemoglobin is 8.1. Continue to trend. -04/30/2023- Hemolytic work-up negative. LDH normal. Total bilirubin normal. Direct Vanessa test negative. Autoimmune work-up pending including SPEP and GINO studies. GGT normal. INR 1.3. Lovenox started. Continue warfarin. I will give him iron transfusion. -05/02/2023-no signs of GI bleeding at this time. Hemoglobin is slightly down. Continue to trend his hemoglobin as he is on Coumadin and heparin. Charges/Coding Visit Charges Inpatient E&M: 99856 [facility] Hosp L3
[2023-05-02] MEDS: Warfarin 0.5 MG Tablet PO (18:04)
[2023-05-02 19:34] LABS: Partial Thromboplast Time 71.7 Seconds (24.1-36.2)
[2023-05-02] MEDS: MELATONIN 10 MG TABLET PO (21:30)
[2023-05-02] MEDS: LORazepam 1 MG Tablet PO (21:43)
[2023-05-03] MEDS: Vancomycin 125 MG/5 ML Susp PO.SYRINGE PO ×4 (01:00→17:12)
[2023-05-03 03:33] VITALS: BP 116/59; PULSE 78; RESP 18; TEMP 37; O2SAT 100
[2023-05-03 04:10] LABS: Absolute Lymphocyte Count 1.45 X10^3/uL (0.83-4.51); Absolute Neutrophil Count 12.3 X10^3/uL (2.0-7.7); Basophil# 0.03 X10^3/uL; Basophil% 0.2 % (0-1); Eosinophil# 0.03 X10^3/uL; Eosinophils% 0.2 % (0-5); Hematocrit 27.5 % (40-54); Hemoglobin 8.5 g/dL (13.0-16.5); Lymphocyte # 1.45 X10^3/ul (0.83-4.51); Lymphocyte % 9.2 % (19-41); Mean Corp Hgb Conc 30.9 g/dL (32-36); Mean Corpuscular Hgb 27.9 pg (27.0-32.0); Mean Corpuscular Volume 90.2 fL (80-94); Mean Platelet Vol. 9.5 fl (6.2-12.0); Monocyte# 1.65 X10^3/uL; Monocyte% 10.4 % (0-10); NRBC Flagged by Analyzer 0.4 % (0-5); Neutrophil # 12.27 X10^3/uL (2.7-7.7); Neutrophil % 77.7 % (47-70); POSITIVE DIFFERENTIAL YES; POSITIVE MORPHOLOGY YES; Platelet Count 238 K/mm3 (150-450); RBC Distribution Width CV 25.9 % (11.6-14.6); RBC Distribution Width SD 84.5 fl (35.1-43.9); Red Blood Count 3.05 M/mm3 (4.6-6.2); White Blood Count 15.8 K/mm3 (4.4-11.0)
[2023-05-03 04:18] LABS: Differential Indicated SCAN CRITERIA MET
[2023-05-03 04:20] LABS: Anisocytosis 2+; Partial Thromboplast Time 39.1 Seconds (24.1-36.2)
[2023-05-03 04:21] LABS: Differential Comment SCANNED
[2023-05-03 04:30] LABS: International Normalized Ratio 1.7; Prothrombin Time (Protime)PT. 20.1 SECONDS (11.7-14.9)
[2023-05-03 04:32] LABS: Anion Gap 4 (5-15); BUN 20 mg/dL (7-18); Calcium,Total 8.3 mg/dL (8.5-10.1); Chloride 106 mmol/L (98-107); Creatinine, Serum 1.05 mg/dL (0.70-1.30); EST Glomerular Filtration Rate 73 mL/min (>60); Est Glom Filt Rate - Afr Amer 88 mL/min (>60); Estimated Creatinine Clearance 63.64 ml/min; Glucose 101 mg/dL (74-106); Potassium 4.2 mmol/L (3.5-5.1); Sodium Level 140 mmol/L (136-145)
[2023-05-03] MEDS: Heparin Injection (Vial) 5,000 UNIT/ML VIAL IV (04:57)
[2023-05-03] MEDS: Cyanocobalamin 500 MCG Tablet 1000 MCG PO (07:39)
[2023-05-03] MEDS: Ascorbic Acid 500 MG Tablet PO ×2 (07:40→17:14)
[2023-05-03] MEDS: Folic Acid 1 MG Tablet PO (07:40)
--- NOTE | 2023-05-03 08:50 | PCM.PN.HOSP ---
Reason for Visit Reason for Visit: Diagnoses Enterocolitis due to Clostridium difficile, not specified as recurrent (04/25/23) Iron deficiency anemia, unspecified (04/25/23) Post-traumatic stress disorder, unspecified (04/25/23) Paroxysmal atrial fibrillation (04/25/23) Hemorrhage of anus and rectum (04/25/23) Gastrointestinal hemorrhage, unspecified (04/25/23) Personal history of other diseases of the circulatory system (04/25/23) Presence of prosthetic heart valve (04/25/23) Subjective Subjective Patient had 1 bowel movement yesterday without blood, no abdominal pain, is not had bowel movement yet today Objective Data Objective Data Vital Signs: Vital Signs Temp Pulse Resp BP Pulse Ox O2 Del Method O2 Flow Rate 98.6 F 78 18 116/59 L 100 Room Air 2 05/03/23 03:33 05/03/23 03:33 05/03/23 03:33 05/03/23 03:33 05/03/23 03:33 05/03/23 03:33 04/26/23 09:53 Oxygen Flow Rate (L/min) 2 Oxygen Delivery Method Room Air Weight: 96.785 kg Body Mass Index (BMI) 28.9 Intake & Output: Intake and Output for Last 24 Hours 05/01/23 05/02/23 05/03/23 23:59 23:59 23:59 Intake Total 800 / 800 1872.58 / 2672.58 837.83 / 837.83 Output Total 960 / 960 Balance 800 / 800 912.58 / 1712.58 837.83 / 837.83 Lab / Micro Data 05/03/23 03:40 05/03/23 03:40 Labs: Laboratory Results - last 24 hr 05/01/23 06:40: Diff Path Review Reviewed 05/02/23 00:41: APTT 141.6 H* 05/02/23 07:20: Differential Comment SCANNED, Diff Path Review Reviewed, Hypochromasia 1+, Anisocytosis 2+, Microcytosis 1+, Macrocytosis 1+, PT 21.7 H, INR 1.9, Sodium 140, Potassium 4.1, Chloride 109 H, Carbon Dioxide 29.0, Anion Gap 2 L, BUN 16, Creatinine 1.11, Estim Creat Clear Calc 60.20, Est GFR (MDRD) Af Amer 82, Est GFR (MDRD) Non-Af 68, BUN/Creatinine Ratio 14.4, Glucose 92, Calcium 8.4 L 05/02/23 09:36: APTT 138.8 H* 05/02/23 19:05: APTT 71.7 H 05/03/23 03:40: WBC 15.8 H, RBC 3.05 L, Hgb 8.5 L, Hct 27.5 L, MCV 90.2, MCH 27.9, MCHC 30.9 L, RDW Std Deviation 84.5 H, RDW Coeff of Rich 25.9 H, Plt Count 238, MPV 9.5, Immature Gran % (Auto) 2.300 H, Neut % (Auto) 77.7 H, Lymph % (Auto) 9.2 L, [place] % (Auto) 10.4 H, Eos % (Auto) 0.2, Baso % (Auto) 0.2, Absolute Neuts (auto) 12.3 H, Absolute Lymphs (auto) 1.45, Nucleated RBC % 0.4, Differential Comment SCANNED, Diff Path Review May foll, Anisocytosis 2+, PT 20.1 H, INR 1.7, APTT 39.1 H, Sodium 140, Potassium 4.2, Chloride 106, Carbon Dioxide 30.0, Anion Gap 4 L, BUN 20 H, Creatinine 1.05, Estim Creat Clear Calc 63.64, Est GFR (MDRD) Af Amer 88, Est GFR (MDRD) Non-Af 73, BUN/Creatinine Ratio 19.0, Glucose 101, Calcium 8.3 L Micro: Microbiology 04/27/23 Unknown Stool C. difficile GDH Antigen & Toxins - Final 04/27/23 Unknown Stool C. difficile DNA Amplification - Final 04/27/23 Unknown Stool Enteric Bacteriology - Final Physical Exam Narrative General: Alert, oriented, no apparent distress HEENT: Atraumatic, normocephalic Eyes: extraocular movements grossly intact Neck: Supple Respiratory: normal respiratory effort Cardiovascular: no edema appreciated GI: nondistended Extremities: Moving all extremities Neuro: No overt focal neurological deficits Psych: Cooperative Assessment & Plan Assessment/Plan (1) Gastrointestinal bleed: QUALIFIERS: GI bleed type/associated pathology: anorectal hemorrhage Qualified Code(s): K62.5 - Hemorrhage of anus and rectum (2) Paroxysmal atrial fibrillation: PLAN: Plan 70-year-old gentleman was admitted on monitored bed through ED for rectal bleeding that started the morning of admission. Initially small amount but later had large amount of blood with no clots. Patient on warfarin for history of mechanical heart valve. No abdominal pain fever or rectal pain. 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 Patient was last admitted in August 24 acute GI bleed and both upper and lower endoscopies showed angiodysplasia in cecum and following it pseudomembranous colitis which were presumed to be the culprits. CTA abdomen reviewed which shows active GI bleeding of right colon/cecum. Other findings were moderate right pleural effusion periumbilical abdominal wall hernia containing small bowel. Patient presented with severe anemia hemoglobin around 7.3 hematocrit 25% but platelet count normal. Patient had 3 units of PRBC transfusion. Initially patient was started on Protonix drip with bolus octreotide drip but later order finding lower GI bleed and discussion of sex crimes detective, Protonix drip changed to 40 mg IV every 12 and octreotide drip discontinued. Patient also on Zosyn. Patient INR 2.7 and with further 2 bleeding episode, vitamin K 5 mg was given at night. Clear liquid started. Bowel prep from 2 PM and colonoscopy tomorrow AM. Last globin 7.9. 04/27: Patient stated he had 4 more dark red blood after started on colon prep yesterday. The patient had colonoscopy in the morning. Patent end-to-end colocolonic anastomosis, healthy-appearing mucosa. Patchy moderate mucosal changes in transverse colon hepatic flexure, AC, cecum and appendiceal orifice at IC valve secondary to colitis biopsied. Moderate inflammation in the ileum secondary to ileitis. Blood in sigmoid colon at the splenic flexure transverse colon before meals and cecum. Vancomycin 125 mg p.o. 4 times daily for 2 weeks. Work-up for Crohn's disease including blood work antibody testing and MRI enterography as outpatient. Repeat colonoscopy recommended. 04/28: Despite multiple PRBC transfusion and iron infusion, hemoglobin dropped to 6.5/21% MCV normal but MCH and MCHC low. RDW high. Reticulocyte panel shows high reticulocyte count with immature reticulocyte fraction therefore suspicion of possible hemolytic anemia. Detailed Vanessa test, LDH and haptoglobin ordered. Zosyn can cause hemolytic anemia therefore discontinued. Abdominal exam is normal. As per colonoscopy, there is suspicion of inflammatory bowel disease or other colitis therefore autoimmune markers have been ordered by sex crimes detective. On folic acid and B12 supplement. Enteric bacteriology panel negative. C. difficile toxin and antigen A and B are negative. C. difficile PCR positive toxin and C. difficile detected, and 0-7 Nabb 1?B1. Continue oral vancomycin.It reflects recent past infection of C. difficile but not acute. Continue p.o. vancomycin. 04/29: Hemolytic work-up negative. LDH normal. Total bilirubin normal. Direct Vanessa test negative. Autoimmune work-up pending including SPEP and GINO studies. GGT normal. INR 1.3. Haptoglobin pending. H&H 8.06/29%. IV heparin drip discontinued probably not maintaining therapeutic level therefore Lovenox started. Continue warfarin. We will prefer going slow with warfarin to avoid bleeding. Monitor labs including CBC, BMP, mag and Phos. -04/30: Hemoglobin 7.7, no further GI bleeding. Remains on Methylpred and oral vanc, if stable tomorrow will transition to 20 mg oral prednisone and 7 more days of oral vancomycin and DC home, discussed with GI -05/01: Hgb 8 but pt w/ 2 bloody BMs x2, AM lovenox held, will discuss w/ GI, trend H&H -05/02: After discussing with GI patient had CTA which had concern for active upper GI bleed however emergent endoscopy did not show any bleeding. Patient had a total of 3 bloody bowel movements yesterday and no bright red blood overnight, has not yet had BM this morning. Patient was taken off Lovenox and transition to heparin drip so that could be turned off faster if further bleeding. Hemoglobin 8.0 today, INR up to 1.9 -05/03: Hemoglobin 8.5 today, INR 1.7, has not had another bloody bowel movements we will try to retransition to Lovenox bridge #History of pulmonic valve replacement and mechanical aortic valve replacement: Patient on warfarin currently on hold as mentioned above. Coagulopathy. Monitor INR daily. As soon as GI bleed is controlled, anticoagulant will be started with IV heparin drip. 04/27 INR 1.4. Patient was started on IV heparin drip. Warfarin to resume from today's evening. 04/28: INR 1.5. Continue IV heparin drip as per nomogram. 04/29 INR 1.3. Lovenox bridging with warfarin. -04/30: Continue to bridge, will likely need to go home on Lovenox with Coumadin and monitoring of INR -05/01: AM lovenox held in light of multiple bloody BMs, trend H&H. May need to consider transitioning to heparin drip and holding Coumadin, INR only 1.6 today -05/02: INR up to 1.9, on heparin drip due to half-life given concern for further bleeding -05/03: Switching to Lovenox bridge again as patient has not had bleeding in 24 hours #Paroxysmal atrial fibrillation 04/28 heart rate is controlled. INR is subtherapeutic therefore IV heparin bridging treatment. -Continue beta-edith #Depression -Continue duloxetine #DVT ppx: As mentioned above Time spent in the patient's overall evaluation,decision-making process, review of diagnostic data, adjustment of management, discussion with other providers, nursing nursing and ancillary staff involved in patient's care documentation, 36 minutes Charges/Coding Visit Charges Inpatient E&M: 86560 Subs Hosp L2
[2023-05-03 09:33] VITALS: BP 115/66; PULSE 66; RESP 18; TEMP 36.3; O2SAT 100
[2023-05-03] MEDS: Enoxaparin 100 MG/ML Syringe SC ×2 (10:04→20:40)
[2023-05-03 10:06] VITALS: PULSE 70
[2023-05-03] MEDS: DULoxetine Hcl 60 MG Capsule PO (10:06)
[2023-05-03] MEDS: Metoprolol Tartrate 25 MG Tablet PO ×2 (10:06→20:40)
[2023-05-03] MEDS: Pantoprazole Sodium 40 MG Tablet PO ×2 (10:06→20:42)
[2023-05-03] MEDS: 0.9% Saline Lock 10 ML Syringe IV (10:13)
[2023-05-03 11:32] LABS: Partial Thromboplast Time 45.6 Seconds (24.1-36.2)
[2023-05-03] MEDS: Ferrous Sulfate 325 MG Tablet PO (13:05)
--- NOTE | 2023-05-03 16:44 | PN.GI_ITS ---
Subjective Subjective Patient is doing well from a GI standpoint. His hemoglobin went from 8-8.5. Objective Data Objective Data Vital Signs: Vital Signs Temp Pulse Resp BP Pulse Ox O2 Del Method O2 Flow Rate 97.3 F L 70 18 115/66 100 Room Air 2 05/03/23 09:33 05/03/23 10:06 05/03/23 09:33 05/03/23 09:33 05/03/23 09:33 05/03/23 09:33 04/26/23 09:53 Oxygen Flow Rate (L/min) 2 Oxygen Delivery Method Room Air Weight: 213 lb 6 oz Body Mass Index (BMI) 28.9 Intake & Output: Intake and Output for Last 24 Hours 05/01/23 05/02/23 05/03/23 23:59 23:59 23:59 Intake Total 800 / 800 1872.58 / 2672.58 837.83 / 837.83 Output Total 960 / 960 Balance 800 / 800 912.58 / 1712.58 837.83 / 837.83 Lab / Micro Data 05/03/23 03:40 05/03/23 03:40 Labs: Laboratory Results - last 24 hr 05/02/23 19:05: APTT 71.7 H 05/03/23 03:40: WBC 15.8 H, RBC 3.05 L, Hgb 8.5 L, Hct 27.5 L, MCV 90.2, MCH 27.9, MCHC 30.9 L, RDW Std Deviation 84.5 H, RDW Coeff of Rich 25.9 H, Plt Count 238, MPV 9.5, Immature Gran % (Auto) 2.300 H, Neut % (Auto) 77.7 H, Lymph % (Auto) 9.2 L, [place] % (Auto) 10.4 H, Eos % (Auto) 0.2, Baso % (Auto) 0.2, Absolute Neuts (auto) 12.3 H, Absolute Lymphs (auto) 1.45, Nucleated RBC % 0.4, Differential Comment SCANNED, Diff Path Review May foll, Anisocytosis 2+, PT 20.1 H, INR 1.7, APTT 39.1 H, Sodium 140, Potassium 4.2, Chloride 106, Carbon Dioxide 30.0, Anion Gap 4 L, BUN 20 H, Creatinine 1.05, Estim Creat Clear Calc 63.64, Est GFR (MDRD) Af Amer 88, Est GFR (MDRD) Non-Af 73, BUN/Creatinine Ratio 19.0, Glucose 101, Calcium 8.3 L 05/03/23 11:00: APTT 45.6 H Micro: Microbiology 04/27/23 Unknown Stool C. difficile GDH Antigen & Toxins - Final 04/27/23 Unknown Stool C. difficile DNA Amplification - Final 04/27/23 Unknown Stool Enteric Bacteriology - Final Physical Exam Narrative General: Alert, oriented, no apparent distress HEENT: Atraumatic, normocephalic Eyes: extraocular movements grossly intact Neck: Supple Respiratory: normal respiratory effort Cardiovascular: no edema appreciated GI: nondistended Extremities: Moving all extremities Neuro: No overt focal neurological deficits Psych: Cooperative Assessment & Plan Assessment/Plan (1) Gastrointestinal bleed: QUALIFIERS: GI bleed type/associated pathology: anorectal hemorrhage Qualified Code(s): K62.5 - Hemorrhage of anus and rectum (2) History of endocarditis: (3) H/O pulmonic valve replacement: (4) History of mechanical aortic valve replacement: (5) Paroxysmal atrial fibrillation: (6) Post traumatic stress disorder: PLAN: Plan Bright red blood per rectum -Unclear upper versus lower. Does have slight elevation in BUN and given blood was becoming darker may be upper in nature -He was admitted 08/2022 for acute GI bleed but upper and lower endoscopies showed angiodysplasia in cecum and following it pseudomembranous colitis which were presumed to be the culprits -His colonoscopy displays ulcerations with congestion and erythema in the terminal ileum and right sided colon. Stool studies were positive for fecal le ukocytes negative for C. difficile and B toxin but positive for PCR. I started him on empiric vancomycin because we will be starting him on methylprednisolone for some Crohn's disease. All other stool cultures were negative for Yersinia which can have a similar presentation and sometimes Campylobacter as they can cause the enterocolitis. Research suggested that using half-maximal intravenous corticosteroids in people admitted to the hospital with concomitant antibiotic therapy (oral vancomycin) was a more effective approach than using standard high doses of IBD corticosteroids in the setting of colitis flare.? Instead of putting him on 40 mg every 8 hours or hydrocortisone 100 mg every 8 hours I will only put him on methylprednisolone to 40 mg a day. History of pulmonic valve replacement and mechanical aortic valve -Patient is on Coumadin, INR 2.7. INR is down to 1.5. -Once and dips below therapeutic range may need heparin drip -Monitor daily INRs Paroxysmal atrial fibrillation -Therapeutic on Coumadin at present with INR 2.7 that now is down to 1.5. I am okay with an heparin drip -Continue beta-edith -04/29/2023 - INR still subtherapeutic. Patient is doing well and hemoglobin is 8.1. Continue to trend. -04/30/2023- Hemolytic work-up negative. LDH normal. Total bilirubin normal. Direct Vanessa test negative. Autoimmune work-up pending including SPEP and GINO studies. GGT normal. INR 1.3. Lovenox started. Continue warfarin. I will give him iron transfusion. -05/02/2023-no signs of GI bleeding at this time. Hemoglobin is slightly down. Continue to trend his hemoglobin as he is on Coumadin and heparin. -05/03/2023-no signs of bleeding and his hemoglobin is trending up. I am okay with switching his Lovenox bridge with Coumadin. Charges/Coding Visit Charges Inpatient E&M: 09411 Subs Hosp L3
[2023-05-03 17:00] VITALS: BP 119/50; PULSE 67; RESP 18; TEMP 36.8; O2SAT 100
[2023-05-03] MEDS: Warfarin 0.5 MG Tablet PO (17:12)
[2023-05-03 20:37] VITALS: BP 126/71; PULSE 79; RESP 18; TEMP 36.8; O2SAT 95
[2023-05-03 20:40] VITALS: BP 126/71; PULSE 79
[2023-05-03] MEDS: MELATONIN 10 MG TABLET PO (20:41)
[2023-05-03] MEDS: LORazepam 1 MG Tablet PO (20:42)
[2023-05-04] MEDS: Vancomycin 125 MG/5 ML Susp PO.SYRINGE PO ×3 (01:08→12:34)
[2023-05-04 03:00] VITALS: BP 119/55; PULSE 81; RESP 16; TEMP 36.6; O2SAT 97
[2023-05-04 06:22] LABS: Absolute Lymphocyte Count 1.56 X10^3/uL (0.83-4.51); Absolute Neutrophil Count 12.2 X10^3/uL (2.0-7.7); Basophil# 0.06 X10^3/uL; Basophil% 0.4 % (0-1); Eosinophil# 0.05 X10^3/uL; Eosinophils% 0.3 % (0-5); Hematocrit 27.7 % (40-54); Hemoglobin 8.5 g/dL (13.0-16.5); Lymphocyte # 1.56 X10^3/ul (0.83-4.51); Lymphocyte % 9.7 % (19-41); Mean Corp Hgb Conc 30.7 g/dL (32-36); Mean Corpuscular Hgb 27.6 pg (27.0-32.0); Mean Corpuscular Volume 89.9 fL (80-94); Mean Platelet Vol. 10.3 fl (6.2-12.0); Monocyte% 11.2 % (0-10); NRBC Flagged by Analyzer 0.2 % (0-5); Neutrophil # 12.15 X10^3/uL (2.7-7.7); Neutrophil % 75.8 % (47-70); POSITIVE DIFFERENTIAL YES; POSITIVE MORPHOLOGY YES; Platelet Count 255 K/mm3 (150-450); RBC Distribution Width CV 26.6 % (11.6-14.6); RBC Distribution Width SD 86.7 fl (35.1-43.9); Red Blood Count 3.08 M/mm3 (4.6-6.2)
[2023-05-04 06:28] LABS: Prothrombin Time (Protime)PT. 22.6 SECONDS (11.7-14.9)
[2023-05-04 06:29] LABS: Differential Indicated SCAN CRITERIA MET
--- NOTE | 2023-05-04 07:00 | EX.PCM.PN.GI ---
Subjective Subjective Mr. Nava is doing very good. He is tolerating a diet he has been walking around the floors and has no complaints at this time. Objective Data Objective Data Vital Signs: Vital Signs Temp Pulse Resp BP Pulse Ox O2 Del Method O2 Flow Rate 98.1 F 76 16 110/60 100 Room Air 2 05/04/23 15:50 05/04/23 15:50 05/04/23 15:50 05/04/23 15:50 05/04/23 15:50 05/04/23 15:50 04/26/23 09:53 Oxygen Flow Rate (L/min) 2 Oxygen Delivery Method Room Air Weight: 213 lb 6 oz Body Mass Index (BMI) 28.9 Intake & Output: Intake and Output for Last 24 Hours 05/02/23 05/03/23 05/04/23 23:59 23:59 23:59 Intake Total 1872.58 / 2672.58 1737.83 / 2137.83 850 / 850 Output Total 960 / 960 Balance 912.58 / 1712.58 1737.83 / 2137.83 850 / 850 Lab / Micro Data 05/04/23 05:50 05/04/23 05:50 Labs: Laboratory Results - last 24 hr 05/03/23 03:40: Diff Path Review Reviewed 05/04/23 05:50: WBC 16.0 H, RBC 3.08 L, Hgb 8.5 L, Hct 27.7 L, MCV 89.9, MCH 27.6, MCHC 30.7 L, RDW Std Deviation 86.7 H, RDW Coeff of Rich 26.6 H, Plt Count 255, MPV 10.3, Immature Gran % (Auto) 2.600 H, Neut % (Auto) 75.8 H, Lymph % (Auto) 9.7 L, [place] % (Auto) 11.2 H, Eos % (Auto) 0.3, Baso % (Auto) 0.4, Absolute Neuts (auto) 12.2 H, Absolute Lymphs (auto) 1.56, Nucleated RBC % 0.2, Differential Comment COMMENT, Diff Path Review May foll, Anisocytosis 2+, PT 22.6 H, INR 2.0, Sodium 138, Potassium 4.0, Chloride 106, Carbon Dioxide 28.0, Anion Gap 4 L, BUN 20 H, Creatinine 0.99, Estim Creat Clear Calc 67.50, Est GFR (MDRD) Af Amer 94, Est GFR (MDRD) Non-Af 77, BUN/Creatinine Ratio 20.1 H, Glucose 89, Calcium 8.6 Micro: Microbiology 04/27/23 Unknown Stool C. difficile GDH Antigen & Toxins - Final 04/27/23 Unknown Stool C. difficile DNA Amplification - Final 04/27/23 Unknown Stool Enteric Bacteriology - Final Physical Exam Narrative General: Alert, oriented, no apparent distress HEENT: Atraumatic, normocephalic Eyes: extraocular movements grossly intact Neck: Supple Respiratory: normal respiratory effort Cardiovascular: no edema appreciated GI: Soft, nontender, nondistended, hernia soft and easily reducible Extremities: Moving all extremities Neuro: No overt focal neurological deficits Psych: Cooperative Assessment & Plan Assessment/Plan (1) Gastrointestinal bleed: QUALIFIERS: GI bleed type/associated pathology: anorectal hemorrhage Qualified Code(s): K62.5 - Hemorrhage of anus and rectum (2) History of endocarditis: (3) H/O pulmonic valve replacement: (4) History of mechanical aortic valve replacement: (5) Paroxysmal atrial fibrillation: (6) Post traumatic stress disorder: PLAN: Plan Bright red blood per rectum -Unclear upper versus lower. Does have slight elevation in BUN and given blood was becoming darker may be upper in nature -He was admitted 08/2022 for acute GI bleed but upper and lower endoscopies showed angiodysplasia in cecum and following it pseudomembranous colitis which were presumed to be the culprits -His colonoscopy displays ulcerations with congestion and erythema in the terminal ileum and right sided colon. Stool studies were positive for fecal leukocytes negative for C. difficile and B toxin but positive for PCR. I started him on empiric vancomycin because we will be starting him on methylprednisolone for some Crohn's disease. All other stool cultures were negative for Yersinia which can have a similar presentation and sometimes Campylobacter as they can cause the enterocolitis. Research suggested that using half-maximal intravenous corticosteroids in people admitted to the hospital with concomitant antibiotic therapy (oral vancomycin) was a more effective approach than using standard high doses of IBD corticosteroids in the setting of colitis flare.? Instead of putting him on 40 mg every 8 hours or hydrocortisone 100 mg every 8 hours I will only put him on methylprednisolone to 40 mg a day. History of pulmonic valve replacement and mechanical aortic valve -Patient is on Coumadin, INR 2.7. INR is down to 1.5. -Once and dips below therapeutic range may need heparin drip -Monitor daily INRs Paroxysmal atrial fibrillation -Therapeutic on Coumadin at present with INR 2.7 that now is down to 1.5. I am okay with an heparin drip -Continue beta-edith -04/29/2023 - INR still subtherapeutic. Patient is doing well and hemoglobin is 8.1. Continue to trend. -04/30/2023- Hemolytic work-up negative. LDH normal. Total bilirubin normal. Direct Vanessa test negative. Autoimmune work-up pending including SPEP and GINO studies. GGT normal. INR 1.3. Lovenox started. Continue warfarin. I will give him iron transfusion. -05/02/2023-no signs of GI bleeding at this time. Hemoglobin is slightly down. Continue to trend his hemoglobin as he is on Coumadin and heparin. -05/03/2023-no signs of bleeding and his hemoglobin is trending up. I am okay with switching his Lovenox bridge with Coumadin. -05/04/2023-patient can be DC'd to home. Repeat a hemoglobin on 05/07/2023. Charges/Coding Multi Select Codes Visit Charges Visit Charges: 36936 Subs Hosp L3
[2023-05-04 07:16] LABS: Anion Gap 4 (5-15); BUN 20 mg/dL (7-18); BUN/Creat Ratio 20.1 RATIO (10-20); Calcium,Total 8.6 mg/dL (8.5-10.1); Chloride 106 mmol/L (98-107); Creatinine, Serum 0.99 mg/dL (0.70-1.30); EST Glomerular Filtration Rate 77 mL/min (>60); Est Glom Filt Rate - Afr Amer 94 mL/min (>60); Glucose 89 mg/dL (74-106); Sodium Level 138 mmol/L (136-145)
[2023-05-04 08:18] LABS: Anisocytosis 2+
[2023-05-04 09:00] VITALS: BP 104/57; PULSE 84; RESP 16; TEMP 36.9; O2SAT 99
[2023-05-04] MEDS: Pantoprazole Sodium 40 MG Tablet PO (09:44)
[2023-05-04] MEDS: Cyanocobalamin 500 MCG Tablet 1000 MCG PO (09:44)
[2023-05-04] MEDS: Folic Acid 1 MG Tablet PO (09:44)
[2023-05-04 09:45] VITALS: PULSE 84
[2023-05-04] MEDS: Metoprolol Tartrate 25 MG Tablet PO (09:45)
[2023-05-04] MEDS: DULoxetine Hcl 60 MG Capsule PO (09:45)
[2023-05-04] MEDS: Ascorbic Acid 500 MG Tablet PO (09:45)
[2023-05-04] MEDS: Enoxaparin 100 MG/ML Syringe SC (09:45)
[2023-05-04 10:26] LABS: Pathologist Review Reviewed
[2023-05-04] MEDS: Ferrous Sulfate 325 MG Tablet PO (12:34)
--- NOTE | 2023-05-04 14:32 | DCINST_ITS ---
Discharge Instructions Diet Discharge Diet: No restrictions Activity Discharge Activity: Return to Normal Activity Follow Up Care Test Results: Test results from this visit will be discussed in further detail at your follow- up appointment, if applicable. Discharge Plan Admission Admit Date/Time: 04/25/23 16:20 Primary Reason for Your Visit: GI bleeding Attending Provider: Chantale Chang Primary Care Provider: Donaldo Larson Consulting Providers: Chantale Chang; Zhang Florentino Instructions Patient Instructions: ED Lower GI Bleeding (Stable) Additional Instructions / Restrictions: DISCHARGE INSTRUCTIONS PLEASE READ *Please take this with you to your next doctors appointment* -You will continue your home medications including your Coumadin and you will be discharged on Lovenox subcutaneously twice daily until your INR is therapeutic. You will need to follow closely with the physician who manages your INR for further monitoring and adjustments, please call them on Sunday to coordinate your lab work and obtain an order for further INR monitoring -Additionally would recommend CBC to check your blood counts in 2 to 3 days through your primary care physician's office. Please call their office upon discharge to obtain order for lab work. -You will also be discharged on 20 mg of prednisone daily and 10 days of oral vancomycin -You will need to follow-up with Dr. Perez with GI in his office upon discharge. Please call his office to schedule your hospital follow-up appointment (ph. [phone]) -Please call your primary care provider's office upon discharge to schedule a hospital follow up within 1 week. -For any concerning signs or symptoms please call 911 or proceed to the nearest emergency department Discharge Orders/Prescriptions Prescriptions: New enoxaparin 100 mg/mL Syringe 100 mg subcut Q12@0600,1800 14 Days Qty: 20 0RF vancomycin 125 mg capsule 125 mg PO Q6H 7 Days Qty: 28 0RF ferrous sulfate [FeroSul] 325 mg (65 mg iron) Tablet 325 mg PO LUNCH Qty: 30 0RF prednisone 20 mg tablet 20 mg PO DAILY Qty: 30 0RF Continued warfarin 5 mg tablet 5 mg PO DAILY Protocol: Dose Management Condition: Sunday Dose/Route: 6.5 mg Instruction: 6.5 x 1 mg tablets Condition: Sunday Dose/Route: 6.5 mg Instruction: 6.5 x 1 mg tablets Condition: Sunday Dose/Route: 6.5 mg Instruction: 6.5 x 1 mg tablets Condition: Sunday Dose/Route: 6.5 mg Instruction: 6.5 x 1 mg tablets Condition: Dose/Route: 6.5 mg Instruction: 6.5 x 1 mg tablets Condition: Sunday Dose/Route: 6.5 mg Instruction: 6.5 x 1 mg tablets Condition: Sunday Dose/Route: 6.5 mg Instruction: 6.5 x 1 mg tablets Protocol Text: Adjustment Start Date: Sunday09/04/22 INR Value: 2.0 INR Date: 09/04/22 Recheck Date: 09/11/22 Rx Instructions: TAKE ONE AND A HALF 1MG TABLETS AND ONE 5MG TABLET TOGETHER ONCE DAILY FOR A TOTAL DAILY DOSE OF 6.5MG. lorazepam 1 mg tablet 1 mg PO Q6H PRN (Reason: ANXIETY ) metoprolol tartrate 50 mg tablet 50 mg PO BID Rx Instructions: TAKE 1 TABLET BY MOUTH TWICE A DAY duloxetine 60 mg capsule,delayed release(DR/EC) 60 mg PO DAILY warfarin 1 mg tablet 1.5 mg PO DAILY Protocol: Dose Management Condition: Sunday Dose/Route: 6.5 mg Instruction: 6.5 x 1 mg tablets Condition: Sunday Dose/Route: 6.5 mg Instruction: 6.5 x 1 mg tablets Condition: Sunday Dose/Route: 6.5 mg Instruction: 6.5 x 1 mg tablets Condition: Sunday Dose/Route: 6.5 mg Instruction: 6.5 x 1 mg tablets Condition: Dose/Route: 6.5 mg Instruction: 6.5 x 1 mg tablets Condition: Sunday Dose/Route: 6.5 mg Instruction: 6.5 x 1 mg tablets Condition: Sunday Dose/Route: 6.5 mg Instruction: 6.5 x 1 mg tablets Protocol Text: Adjustment Start Date: Sunday09/04/22 INR Value: 2.0 INR Date: 09/04/22 Recheck Date: 09/11/22 Rx Instructions: TAKE ONE AND A HALF 1MG TABLETS AND ONE 5MG TABLET TOGETHER ONCE DAILY FOR A TOTAL DAILY DOSE OF 6.5MG. Changed melatonin 10 mg capsule 10 mg PO QHS 30 Days Qty: 0 0RF Referrals / Follow Up: Donaldo Larson DO [Primary Care Provider] - Within 1 Week FriendYohan DO [Med Staff - Active Staff] - Disposition Disposition (needs filled in before D/C Order can be placed): Home, Self Care
--- NOTE | 2023-05-04 14:43 | DS.PCM_ITS ---
Providers Date of Admission: 04/25/23 Date of Discharge: 05/04/23 Primary Care Physician: Dr. Donaldo Larson, Consultations 04/25/23 18:15 Consult: Gastroenterology Routine Consulting Provider: [facility] Reason for Consult: GIB EMERGENT Consult: No MD Notified: Yes Date Notified: 04/25/23 Time Notified: 16:22 Method of Notification: Verbal Reason For Visit: GIB Diagnosis Discharge Diagnosis (1) Gastrointestinal bleed: Status: Chronic Code(s): K92.2 - Gastrointestinal hemorrhage, unspecified Qualifiers: GI bleed type/associated pathology: anorectal hemorrhage Qualified Code(s): K62.5 - Hemorrhage of anus and rectum (2) History of endocarditis: Status: Chronic Code(s): Z86.79 - Personal history of other diseases of the circulatory system (3) H/O pulmonic valve replacement: Status: Chronic Code(s): Z95.2 - Presence of prosthetic heart valve (4) History of mechanical aortic valve replacement: Status: Acute Code(s): Z95.2 - Presence of prosthetic heart valve (5) Paroxysmal atrial fibrillation: Status: Acute Code(s): I48.0 - Paroxysmal atrial fibrillation (6) Post traumatic stress disorder: Status: Chronic Code(s): F43.10 - Post-traumatic stress disorder, unspecified Plan #Acute GI blood loss due to acute and active lower GI bleed and coagulopathy #History of pulmonic valve replacement and mechanical aortic valve replacement #Paroxysmal atrial fibrillation #Depression Medications at Discharge Home Medications warfarin 5 mg tablet 5 mg PO DAILY BLOOD THINNER 08/27/22 warfarin 1 mg tablet 1.5 mg PO DAILY BLOOD THINNER 09/01/22 duloxetine 60 mg capsule,delayed release 60 mg PO DAILY DEPRESSION 04/25/23 lorazepam 1 mg tablet 1 mg PO Q6H PRN ANXIETY 04/25/23 metoprolol tartrate 50 mg tablet 50 mg PO BID BLOOD PRESSURE 04/25/23 enoxaparin 100 mg/mL subcutaneous syringe 100 mg subcut Q12@0600,1800 14 days #20 mL 04/30/23 vancomycin 125 mg capsule 125 mg PO Q6H 7 days #28 caps 04/30/23 ferrous sulfate 325 mg (65 mg iron) tablet (FeroSul) 325 mg PO LUNCH #30 tabs 05/04/23 melatonin 10 mg capsule 10 mg PO QHS SLEEP 30 days #0 caps 05/04/23 prednisone 20 mg tablet 20 mg PO DAILY #30 tabs 05/04/23 Hospital Course Procedures Colonoscopy and EGD Summary of Care Provided Minutes Spent on Discharge: 35 Hospital Course: TRAMAINE MAST, is a 78-year-old male history of anxiety, hypertension, pulmonic valve and mechanical aortic valve on coumadin, PTSD, paroxysmal atrial fibrillation who presented to [facility] 04/25/2023 for rectal bleeding that started in the morning. Initially small amount of bleeding and subsequently had a large amount per rectum. He is on Coumadin due to his history of mechanical heart valve. 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 In the ED he had a hemoglobin of 8.2, earlier in the year hemoglobin was similar however he did have maroon stools on rectal exam and given his mechanical valves and concern for lower GI bleed hospitalist contacted for admission. Initially given relative stability and mechanical aortic valve his Coumadin was not reversed after discussing with GI but it was advised he was started on Protonix, octreotide, Zosyn, and CTA obtained. CTA revealed active GI bleeding in right colon/cecum and patient did continue to have blood in stool so he was given vitamin K and had colon prep which showed patchy moderate mucosal changes in transverse colon hepatic flexure, AC, cecum, and appendiceal orifice secondary to colitis with moderate inflammation in ileum secondary to ileitis. Additionally blood in sigmoid colon and at the splenic flexure. There is concern for Crohn's disease and patient was started on Methylpred and also p.o. vancomycin to prophylax for another episode of C. difficile/pseudomembranous colitis as he was recently here for a GI bleed related to that. It is recommended that he have outpatient follow-up and MRI enterography and repeat colonoscopy on outpatient basis. Patient initially improved and was on a heparin drip with Coumadin restarted, was transitioned to Lovenox bridge with Coumadin in preparation for discharge however patient had several further episodes of blood per rectum. GI contacted and patient had repeat CTA which showed concern for arterial bleed in stomach, patient taken emergently for EGD but it was completely normal and bloody stools completely resolved. Patient was retransitioned back to Lovenox bridge and was able to tolerate this without further bleeding and had no further complaints. Patient stable on day of discharge with the following discharge instructions: DISCHARGE INSTRUCTIONS PLEASE READ *Please take this with you to your next doctors appointment* -You will continue your home medications including your Coumadin and you will be discharged on Lovenox subcutaneously twice daily until your INR is therapeutic. You will need to follow closely with the physician who manages your INR for further monitoring and adjustments -You will also be discharged on 20 mg of prednisone daily and 10 days of oral vancomycin -You will need to follow-up with Dr. Perez with GI in his office upon discharge. Please call his office to schedule your hospital follow-up appoin [facility] (ph. [phone]) -Please call your primary care provider's office upon discharge to schedule a hospital follow up within 1 week. -For any concerning signs or symptoms please call 911 or proceed to the nearest emergency department Physical Exam Narrative General: Alert, oriented, no apparent distress HEENT: Atraumatic, normocephalic Eyes: extraocular movements grossly intact Neck: Supple Respiratory: normal respiratory effort Cardiovascular: no edema appreciated GI: Soft, nontender, nondistended, hernia soft and easily reducible Extremities: Moving all extremities Neuro: No overt focal neurological deficits Psych: Cooperative Weight / BMI Weight Weight: 96.785 kg Body Mass Index (BMI) 28.9 ABG / Lab / Microbiology Data 05/04/23 05:50 05/04/23 05:50 Laboratory: Laboratory Results - last 24 hr 05/03/23 03:40: Diff Path Review Reviewed 05/04/23 05:50: WBC 16.0 H, RBC 3.08 L, Hgb 8.5 L, Hct 27.7 L, MCV 89.9, MCH 27.6, MCHC 30.7 L, RDW Std Deviation 86.7 H, RDW Coeff of Rich 26.6 H, Plt Count 255, MPV 10.3, Immature Gran % (Auto) 2.600 H, Neut % (Auto) 75.8 H, Lymph % (Auto) 9.7 L, [place] % (Auto) 11.2 H, Eos % (Auto) 0.3, Baso % (Auto) 0.4, A bsolute Neuts (auto) 12.2 H, Absolute Lymphs (auto) 1.56, Nucleated RBC % 0.2, Differential Comment COMMENT, Diff Path Review May camilo Anisocytosis 2+, PT 22.6 H, INR 2.0, Sodium 138, Potassium 4.0, Chloride 106, Carbon Dioxide 28.0, Anion Gap 4 L, BUN 20 H, Creatinine 0.99, Estim Creat Clear Calc 67.50, Est GFR (MDRD) Af Amer 94, Est GFR (MDRD) Non-Af 77, BUN/Creatinine Ratio 20.1 H, Glucose 89, Calcium 8.6 Microbiology: Microbiology 04/27/23 Unknown Stool C. difficile GDH Antigen & Toxins - Final 04/27/23 Unknown Stool C. difficile DNA Amplification - Final 04/27/23 Unknown Stool Enteric Bacteriology - Final D/C Instructions Discharge Diet: No restrictions Meaningful Use Info Meaningful Use Diagnoses (Choose all that apply): None applicable Discharge Plan Admission Admit Date/Time: 04/25/23 16:20 Primary Reason for Your Visit: GI bleeding Attending Provider: Chantale Chang Primary Care Provider: Donaldo Larson Consulting Providers: Chantale Chang; Zhang Florentino Instructions Patient Instructions: ED Lower GI Bleeding (Stable) Additional Instructions / Restrictions: DISCHARGE INSTRUCTIONS PLEASE READ *Please take this with you to your next doctors appointment* -You will continue your home medications including your Coumadin and you will be discharged on Lovenox subcutaneously twice daily until your INR is therapeutic. You will need to follow closely with the physician who manages your INR for further monitoring and adjustments, please call them on Sunday to coordinate your lab work and obtain an order for further INR monitoring -Additionally would recommend CBC to check your blood counts in 2 to 3 days through your primary care physician's office. Please call their office upon discharge to obtain order for lab work. -You will also be discharged on 20 mg of prednisone daily and 10 days of oral vancomycin -You will need to follow-up with Dr. Perez with GI in his office upon discharge. Please call his office to schedule your hospital follow-up appointment (ph. [phone]) -Please call your primary care provider's office upon discharge to schedule a hospital follow up within 1 week. -For any concerning signs or symptoms please call 911 or proceed to the nearest emergency department Discharge Orders/Prescriptions Prescriptions: New enoxaparin 100 mg/mL Syringe 100 mg subcut Q12@0600,1800 14 Days Qty: 20 0RF vancomycin 125 mg capsule 125 mg PO Q6H 7 Days Qty: 28 0RF ferrous sulfate [FeroSul] 325 mg (65 mg iron) Tablet 325 mg PO LUNCH Qty: 30 0RF prednisone 20 mg tablet 20 mg PO DAILY Qty: 30 0RF Continued warfarin 5 mg tablet 5 mg PO DAILY Protocol: Dose Management Condition: Sunday Dose/Route: 6.5 mg Instruction: 6.5 x 1 mg tablets Condition: Sunday Dose/Route: 6.5 mg Instruction: 6.5 x 1 mg tablets Condition: Sunday Dose/Route: 6.5 mg Instruction: 6.5 x 1 mg tablets Condition: Sunday Dose/Route: 6.5 mg Instruction: 6.5 x 1 mg tablets Condition: Dose/Route: 6.5 mg Instruction: 6.5 x 1 mg tablets Condition: Sunday Dose/Route: 6.5 mg Instruction: 6.5 x 1 mg tablets Condition: Sunday Dose/Route: 6.5 mg Instruction: 6.5 x 1 mg tablets Protocol Text: Adjustment Start Date: Sunday09/04/22 INR Value: 2.0 INR Date: 09/04/22 Recheck Date: 09/11/22 Rx Instructions: TAKE ONE AND A HALF 1MG TABLETS AND ONE 5MG TABLET TOGETHER ONCE DAILY FOR A TOTAL DAILY DOSE OF 6.5MG. lorazepam 1 mg tablet 1 mg PO Q6H PRN (Reason: ANXIETY ) metoprolol tartrate 50 mg tablet 50 mg PO BID Rx Instructions: TAKE 1 TABLET BY MOUTH TWICE A DAY duloxetine 60 mg capsule,delayed release(DR/EC) 60 mg PO DAILY warfarin 1 mg tablet 1.5 mg PO DAILY Protocol: Dose Management Condition: Sunday Dose/Route: 6.5 mg Instruction: 6.5 x 1 mg tablets Condition: Sunday Dose/Route: 6.5 mg Instruction: 6.5 x 1 mg tablets Condition: Sunday Dose/Route: 6.5 mg Instruction: 6.5 x 1 mg tablets Condition: Sunday Dose/Route: 6.5 mg Instruction: 6.5 x 1 mg tablets Condition: Dose/Route: 6.5 mg Instruction: 6.5 x 1 mg tablets Condition: Sunday Dose/Route: 6.5 mg Instruction: 6.5 x 1 mg tablets Condition: Sunday Dose/Route: 6.5 mg Instruction: 6.5 x 1 mg tablets Protocol Text: Adjustment Start Date: Sunday09/04/22 INR Value: 2.0 INR Date: 09/04/22 Recheck Date: 09/11/22 Rx Instructions: TAKE ONE AND A HALF 1MG TABLETS AND ONE 5MG TABLET TOGETHER ONCE DAILY FOR A TOTAL DAILY DOSE OF 6.5MG. Changed melatonin 10 mg capsule 10 mg PO QHS 30 Days Qty: 0 0RF Referrals / Follow Up: Donaldo Larson DO [Primary Care Provider] - Within 1 Week FriendYohan DO [Med Staff - Active Staff] - 05/25/23 10:50 am Disposition Disposition (needs filled in before D/C Order can be placed): Home, Self Care Charges/Coding Visit Charges Inpatient E&M: 16253 Disch Hosp >30min
--- NOTE | 2023-05-04 14:58 | CASEMGMT ---
IVY CM into pt room, pt dressed and ready for dc. Pt has received his medications from the pharmacy. Pt feels comfortable giving lovenox to self, reporting he has done this before. Pt denies any homegoing needs.
--- NOTE | 2023-05-04 15:27 | PHA.DC.MC.R ---
Pharmacy [facility] has performed discharge medication reconciliation and counseling for this patient. The patient's discharge medication list was reviewed for discrepancies and discrepancies were resolved. The patient was counseled on the following discharge medications and changes in medications for homegoing were reviewed. The Reason for Use, instructions for use, and potential side effects were reviewed for all new medications. The patient's questions regarding all of their medications were answered. 1. Enoxaparin 100 mg SC BID until INR therapeutic 2. ferrous sulfate 325 mg PO daily 3. Vancomycin 125 mg PO Q6H x 7 days 4. Prednisone 20 mg PO daily The patient was able to verbally demonstrate an understanding of their discharge medications. Medications at Discharge Home Medications warfarin 5 mg tablet 5 mg PO DAILY BLOOD THINNER 08/27/22 warfarin 1 mg tablet 1.5 mg PO DAILY BLOOD THINNER 09/01/22 duloxetine 60 mg capsule,delayed release 60 mg PO DAILY DEPRESSION 04/25/23 lorazepam 1 mg tablet 1 mg PO Q6H PRN ANXIETY 04/25/23 metoprolol tartrate 50 mg tablet 50 mg PO BID BLOOD PRESSURE 04/25/23 enoxaparin 100 mg/mL subcutaneous syringe 100 mg subcut Q12@0600,1800 14 days #20 mL 04/30/23 vancomycin 125 mg capsule 125 mg PO Q6H 7 days #28 caps 04/30/23 ferrous sulfate 325 mg (65 mg iron) tablet (FeroSul) 325 mg PO LUNCH #30 tabs 05/04/23 melatonin 10 mg capsule 10 mg PO QHS SLEEP 30 days #0 caps 05/04/23 prednisone 20 mg tablet 20 mg PO DAILY #30 tabs 05/04/23
[2023-05-04 15:50] VITALS: BP 110/60; PULSE 76; RESP 16; TEMP 36.7; O2SAT 100
--- NOTE | 2023-05-04 17:36 | EX.PCM.PN.GI ---
Subjective Subjective Patient is doing well without any new complaints. Objective Data Objective Data Vital Signs: Vital Signs Temp Pulse Resp BP Pulse Ox O2 Del Method O2 Flow Rate 98.1 F 76 16 110/60 100 Room Air 2 05/04/23 15:50 05/04/23 15:50 05/04/23 15:50 05/04/23 15:50 05/04/23 15:50 05/04/23 15:50 04/26/23 09:53 Oxygen Flow Rate (L/min) 2 Oxygen Delivery Method Room Air Weight: 213 lb 6 oz Body Mass Index (BMI) 28.9 Intake & Output: Intake and Output for Last 24 Hours 05/02/23 05/03/23 05/04/23 23:59 23:59 23:59 Intake Total 1872.58 / 2672.58 1737.83 / 2137.83 850 / 850 Output Total 960 / 960 Balance 912.58 / 1712.58 1737.83 / 2137.83 850 / 850 Lab / Micro Data 05/04/23 05:50 05/04/23 05:50 Labs: Laboratory Results - last 24 hr 05/03/23 03:40: Diff Path Review Reviewed 05/04/23 05:50: WBC 16.0 H, RBC 3.08 L, Hgb 8.5 L, Hct 27.7 L, MCV 89.9, MCH 27.6, MCHC 30.7 L, RDW Std Deviation 86.7 H, RDW Coeff of Rich 26.6 H, Plt Count 255, MPV 10.3, Immature Gran % (Auto) 2.600 H, Neut % (Auto) 75.8 H, Lymph % (Auto) 9.7 L, [place] % (Auto) 11.2 H, Eos % (Auto) 0.3, Baso % (Auto) 0.4, Absolute Neuts (auto) 12.2 H, Absolute Lymphs (auto) 1.56, Nucleated RBC % 0.2, Differential Comment COMMENT, Diff Path Review May foll, Anisocytosis 2+, PT 22.6 H, INR 2.0, Sodium 138, Potassium 4.0, Chloride 106, Carbon Dioxide 28.0, Anion Gap 4 L, BUN 20 H, Creatinine 0.99, Estim Creat Clear Calc 67.50, Est GFR (MDRD) Af Amer 94, Est GFR (MDRD) Non-Af 77, BUN/Creatinine Ratio 20.1 H, Glucose 89, Calcium 8.6 Micro: Microbiology 04/27/23 Unknown Stool C. difficile GDH Antigen & Toxins - Final 04/27/23 Unknown Stool C. difficile DNA Amplification - Final 04/27/23 Unknown Stool Enteric Bacteriology - Final
[2023-05-07 09:38] LABS: Pathologist Review Reviewed
== END 2023-05-04 16:24 | disposition home or self-care (01) | DRG 378 ==
LOC: ED 15:47 → MS3 17:37
PROVIDERS: Anesthesiology; Internal Medicine; Internal Medicine Gastroenterology; Admitting Provider Internal Medicine; Emergency Provider Emergency Medicine; PCP Family Medicine; Visit Provider Internal Medicine
PROC: 0DJD8ZZ Inspection of Lower Intestinal Tract, Via Natural or Artificial Opening Endoscopic (ICD-10-PCS; CPT 45378; principal; 2023-04-27 09:55)
PROC: 0DJ08ZZ Inspection of Upper Intestinal Tract, Via Natural or Artificial Opening Endoscopic (ICD-10-PCS; CPT 43235; principal; 2023-05-01 14:30)
DX: K62.5 Hemorrhage of anus and rectum (principal); D68.9 Coagulation defect, unspecified; I48.0 Paroxysmal atrial fibrillation; I10 Essential (primary) hypertension; F32.A Depression, unspecified; I08.8 Other rheumatic multiple valve diseases; D50.9 Iron deficiency anemia, unspecified; E78.00 Pure hypercholesterolemia, unspecified; K44.9 Diaphragmatic hernia without obstruction or gangrene; F41.9 Anxiety disorder, unspecified; Z79.01 Long term (current) use of anticoagulants; Z87.891 Personal history of nicotine dependence; F43.10 Post-traumatic stress disorder, unspecified; Z95.2 Presence of prosthetic heart valve; Z86.79 Personal history of other diseases of the circulatory system
CPT/HCPCS: 36415; 74174; 80048; 80053; 80074; 80076; 82550; 82607; 82728; 82746; 82784; 82977; 83010; 83540; 83550; 83605; 83615; 83735; 84100; 84165; 84484; 85018; 85025; 85027; 85045; 85610; 85652; 85730; 86038; 86140; 86225; 86235; 86256; 86334; 86480; 86850; 86880; 86900; 86901; 86920; 86922; 87493; 87506; 88305; 88312; 93005; 94668; 97802; 97803; 99284; J7030; J7040; J7050; J7120; P9016; Q9967; A4216; J2405; J2916; J3490

== ENCOUNTER → 2023-05-08 | Outpatient (CLI) | payer MEDICARE, OTHER, SELFPAY ==
[2023-05-08 17:41] LABS: Absolute Lymphocyte Count 1.06 X10^3/uL (0.83-4.51); Absolute Neutrophil Count 10.1 X10^3/uL (2.0-7.7); Basophil# 0.04 X10^3/uL; Basophil% 0.3 % (0-1); Eosinophil# 0.15 X10^3/uL; Eosinophils% 1.2 % (0-5); Hematocrit 34.1 % (40-54); Lymphocyte # 1.06 X10^3/ul (0.83-4.51); Lymphocyte % 8.2 % (19-41); Mean Corp Hgb Conc 29.3 g/dL (32-36); Mean Corpuscular Hgb 27.4 pg (27.0-32.0); Mean Corpuscular Volume 93.4 fL (80-94); Mean Platelet Vol. 10.4 fl (6.2-12.0); Monocyte# 1.35 X10^3/uL; Monocyte% 10.5 % (0-10); NRBC Flagged by Analyzer 0 % (0-5); Neutrophil # 10.09 X10^3/uL (2.7-7.7); Neutrophil % 78.6 % (47-70); POSITIVE MORPHOLOGY YES; Platelet Count 292 K/mm3 (150-450); RBC Distribution Width CV 25.7 % (11.6-14.6); RBC Distribution Width SD 86.9 fl (35.1-43.9); Red Blood Count 3.65 M/mm3 (4.6-6.2); White Blood Count 12.9 K/mm3 (4.4-11.0)
[2023-05-08 18:04] LABS: Differential Indicated SCAN CRITERIA MET; International Normalized Ratio 2.2; Prothrombin Time (Protime)PT. 24.4 SECONDS (11.7-14.9)
[2023-05-08 18:25] LABS: Differential Comment SCANNED
== END | disposition home or self-care (01) ==
LOC: BFHLAB 14:54
PROVIDERS: Internal Medicine Cardiovascular Disease; PCP Family Medicine; Visit Provider Family Medicine
DX: Z95.2 Presence of prosthetic heart valve (principal); Z79.01 Long term (current) use of anticoagulants; D64.9 Anemia, unspecified
CPT/HCPCS: 36415; 85025; 85610

== ENCOUNTER → 2023-05-11 | Outpatient (CLI) | payer MEDICARE, OTHER, SELFPAY ==
[2023-05-11 14:37] LABS: International Normalized Ratio 2.3; Prothrombin Time (Protime)PT. 25.4 SECONDS (11.7-14.9)
== END | disposition home or self-care (01) ==
PROVIDERS: PCP Family Medicine; Referring Provider Internal Medicine Cardiovascular Disease; Visit Provider Internal Medicine Cardiovascular Disease
DX: Z95.2 Presence of prosthetic heart valve (principal)
CPT/HCPCS: 36415; 85610

== ENCOUNTER 2023-06-01 23:52 | Inpatient (IN) | payer MEDICARE, OTHER, SELFPAY ==
[2023-06-01 23:52] VITALS: BP 140/69; PULSE 108; RESP 15; TEMP 37.2; O2SAT 99; BMI 30.7
[2023-06-02] VITALS (50 sets, daily range): BP systolic 58–148; BP diastolic 23–83; PULSE 55–122; RESP 14–29; TEMP 36.8–39.5; O2SAT 88–100; BMI 29.0
--- NOTE | 2023-06-02 00:42 | EX.ED.DYSGE1 ---
HPI History of Present Illness Chief Complaint: Fever Informant: patient Onset/Context/Timing Onset: Today and Hours Context: Gradual Onset Timing: Continuous Current Severity: Mild Maximum Severity: Mild Narrative Narrative: 78-year-old male with a history of prosthetic heart valves x 2 prior GI [id number] male extensive past medical history including A-fib on Coumadin and partial colectomy. Says both his girlfriend and I believe her sister recently not been feeling well. He developed a fever this morning. He denies any vomiting or diarrhea. He denies any dysuria. He denies any abdominal pain. No rash. Denies any cough. 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 Nonrheumatic aortic (valve) insufficiency Nonrheumatic pulmonary valve insufficiency 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 Palpitations Panic disorder Pneumaturia Post traumatic stress disorder Pseudomembranous colitis Pure hypercholesterolemia Scarlet fever Sigmoid diverticulitis Streptococcal endocarditis Home Medications warfarin 5 mg tablet 6.5 mg PO SUMOTUTHFRSA BLOOD THINNER 08/27/22 [History Last Taken 04/24/23] warfarin 1 mg tablet 7.5 mg PO WE BLOOD THINNER 09/01/22 [History Last Taken 04/24/23] duloxetine 60 mg capsule,delayed release 60 mg PO DAILY DEPRESSION 04/25/23 [History Last Taken 04/24/23] ferrous sulfate 325 mg (65 mg iron) tablet (FeroSul) 325 mg PO LUNCH #30 tabs 05/04/23 [Rx Last Taken Unknown] melatonin 10 mg capsule 10 mg PO QHS SLEEP 30 days #0 caps 05/04/23 [Rx Last Taken 04/24/23] prednisone 20 mg tablet 20 mg PO DAILY #30 tabs 05/04/23 [Rx Last Taken Unknown] metoprolol tartrate 50 mg tablet 50 mg PO BID BLOOD PRESSURE #180 TABLETS 05/14/23 [Rx Last Taken Unknown] lorazepam 0.5 mg tablet 0.5 mg PO BID 05/21/23 [History Last Taken Unknown] Allergy/AdvReac Type Severity Reaction Status Date / Time fentanyl Allergy Severe Other Verified 06/01/23 23:59 levofloxacin AdvReac Severe Passed out Verified 06/01/23 23:59 Family History Father CAD (coronary artery disease) Surgical History H/O pulmonic valve replacement History of colon resection History of colonoscopy (~04/2023) History of herniorrhaphy History of mechanical aortic valve replacement Social History Smoking Status: Former smoker how long ago did patient quit smokin years ago alcohol intake: current alcohol intake frequency: holidays/special occasions only Alcohol type: beer details: social caffeine: Yes Type: coffee Number of servings: 1 ROS ROS ED ROS Narrative Fever denies other symptoms. Review of Systems ROS Unobtainable: Denies due to encephalopathy Constitutional Constitutional ED: Reports chills and fever(s) Eyes Eyes: Denies blurry vision ENT ENT ED: Denies ear pain Cardiovascular Cardiovascular: Denies chest pain Respiratory/Chest Respiratory/Chest: Denies cough or dyspnea Gastrointestinal Gastrointestinal: Denies abdominal pain Genitourinary Genitourinary ED: Denies dysuria or hematuria Musculoskeletal Musculoskeletal: Denies arthralgias, back pain or neck pain Integumentary Denies abscess or Abrasions Neurologic Neurologic: Denies headache(s) Psychiatric Psychiatric: Denies anxiety or depression Endocrine Endocrinology: Denies cold intolerance Hematologic/Lymphatic Hematologic/Lymphatic: Reports none Allergic/Immunologic Allergic/Immunologic ED: Denies mouth swelling, tongue swelling or urticaria EXAM Physical Exam Narrative Exam Narrative: Well-appearing 78-year-old male. Vital signs are stable. His initial temperature was 98 9 and repeat was 1-1.2. He does not look septic or toxic is in no distress. He sitting upright in bed. HEENT exam unremarkable. Moist mucous membranes. Posterior pharynx unremarkable. Neck nontender no lymphadenopathy. Lungs clear to auscultation bilateral. Heart regular rhythm rate about 105. At the clinical prosthetic heart valve. Abdomen soft nontender. Normal bowel sounds. Nondistended. No peritoneal signs. Moving all 4 extremities. 1+ pitting edema both lower extremities. Neurologically is awake and alert. No focal motor deficits. Back is nontender. Const Vital Signs: 06/01/23 23:52 06/02/23 00:09 06/02/23 00:12 Temperature 98.9 F 101.2 F H Temperature Source Oral Oral Pulse Rate 108 H Respiratory Rate 15 Respiratory Effort Normal Respiratory Pattern Normal Blood Pressure 140/69 H Blood Pressure Mean 92 Pulse Ox 99 Oxygen Delivery Method Room Air 06/02/23 00:22 06/02/23 02:47 Temperature 103 F H Temperature Source Oral Pulse Rate 95 55 L Respiratory Rate 14 16 Respiratory Effort Respiratory Pattern Blood Pressure 134/70 H 129/66 H Blood Pressure Mean 91 87 Pulse Ox 95 100 Oxygen Delivery Method Room Air Room Air Positive well nourished and well developed; Negative for cachectic, contractures or unkempt General Appearance ED: well developed and NAD; Negative for unkempt, cachectic, contractures, cyanotic, diaphoretic or pallor Nutritional Appearance: Negative for cachectic HEENT Reports moist mucous membranes; Denies dry mucous membranes Negative for trauma or tenderness Mouth ED: No dry mucous membranes Mouth: No dry mucous membranes Eyes PERRL and EOMs intact bilaterally General Eye ED: Negative for pale conjunctiva or scleral icterus Neck no lymphadenopathy, supple and no JVD General: Negative for tenderness Lymph Lymphatic: Negative for other Chest Wall inspection of chest normal and palpation of chest normal Chest: Negative for other Resp normal respiratory effort and clear to auscultation bilaterally Effort and Inspection: Negative for retractions Auscultation: Negative for rales, rhonchi or wheezes Cardio regular rhythm, S1 normal heart sound, S2 normal heart sound and no murmurs; Negative for regular rate Rate: tachycardic GI normal to inspection, nondistended, normoactive bowel sounds, non-tender, non-distended and no masses Inspection: Negative for abdominal distention Auscultation: normoactive bowel sounds Palpation: soft; Negative for tender or guarding Back/Spine no CVA tenderness General Back: Negative for CVA tenderness Cervical Spine: Negative for cervical spine tenderness Thoracic Spine / Upper Back: Negative for thoracic spinal tenderness Lumbar Spine / Lower Back: Negative for lumbar spinal tenderness Extremity Negative for normal to inspection Extremity Narrative: Bilateral 1+ pitting edema. General Extremety ED: Yes edema; Negative for tenderness General Extremity: edema Neuro oriented x3 and CN's II-XII intact bilaterally Sensorium / Orientation: alert; Negative for orientation impaired, lethargic or stuporous Motor Exam: strength 5/5 throughout; Negative for general weakness Psych mental status grossly normal Appearance: Negative for unkempt Attitude: No agitated Mood & Affect: Negative for depressed, anxious or tearful Skin no rashes or lesions noted, no wounds and skin turgor normal General Skin Exam: elasticity normal; Negative for jaundice or pallor Lesions: No lesion noted Rashes: No rashes noted Trauma: Negative for abrasion MDM MDM MDM Narrative Medical decision making narrative: 78-year-old male with a calm [place] past medical history with a fever of 1-1.2. Most likely viral syndrome consistent with his girlfriend being recently ill. However with his history I am going to do a workup including blood cultures due to his history of prior endocarditis. Tylenol for fever. Repeat exam patient doing well at 2:19 AM. Awaiting a few lab results. Patient doing well at 3:15 AM. Patient was given Tylenol his fever went up to 103 after the Tylenol. He is an 18.5 thousand white count but has had high white counts in the past. His chest x-ray, UA and viral studies so far negative. Blood cultures and urine culture are pending. I will speak to the hospitalist about admitting the patient overnight for further evaluation. At this time he clinically does not look bad. His vital signs remained stable with the fever. I do not see any rashes on his skin. He has no joint redness, swelling or tenderness. With his past history of endocarditis obviously that is a consideration which we cannot make that diagnosis at this time. History & Record Review Discussion w/independent historian: Patient Additional record(s) reviewed:: Prior inpatient record, Prior outpatient record, Prior ED visit and Prior labs Lab Data Attestation: I reviewed the patient's lab results. Lab results narrative: CBC shows a white count 18.5. H&H 12.4 and 39.7. Platelets 249. Patient is on Coumadin his INR is 3.8. BMP shows a gap of 3. BUN 24 creatinine 1.2. Glucose 129. Lactic acid 2.2. COVID, flu and RSV negative. Urinalysis shows no nitrates. No red cells. 5-10 white cells. No bacteria. Labs: Laboratory Results - last 24 hr 06/02/23 06/02/23 06/02/23 00:40 00:45 01:19 WBC 18.5 H RBC 4.32 L Hgb 12.4 L Hct 39.7 L MCV 91.9 MCH 28.7 MCHC 31.2 L RDW Std Deviation 69.0 H RDW Coeff of Rich 20.0 H Plt Count 249 MPV 9.5 Immature Gran % (Auto) 1.100 H Neut % (Auto) 91.2 H Lymph % (Auto) 1.3 L [place] % (Auto) 6.2 Eos % (Auto) 0.0 Baso % (Auto) 0.2 Absolute Neuts (auto) 16.9 H Absolute Lymphs (auto) 0.25 L Nucleated RBC % 0 Differential Comment SEE COMMENT Platelet Estimate ADEQUATE RBC Morphology N CHROM Anisocytosis 1+ Macrocytosis 1+ PT 38.1 H INR 3.8 Sodium 136 Potassium 5.0 Chloride 103 Carbon Dioxide 30.0 Anion Gap 3 L BUN 24 H Creatinine 1.23 Estim Creat Clear Calc 52.72 Est GFR (MDRD) Af Amer 73 Est GFR (MDRD) Non-Af 61 BUN/Creatinine Ratio 19.5 Glucose 129 H Lactic Acid 2.2 H* Calcium 9.2 Urine Color Yellow Urine Clarity Clear Urine pH 7.0 Ur Specific [place] 1.010 Urine Protein 15 H Urine Glucose (UA) Normal Urine Ketones Negative Urine Occult Blood 150 H Urine Nitrite Negative Urine Bilirubin Negative Urine Urobilinogen Normal Ur Leukocyte Esterase 25 H Urine RBC 0-5 SEEN Urine WBC 5-10 SEEN Ur Squamous Epith Cells 0-5 SEEN Urine Bacteria 0 SEEN Urine Mucus 0 SEEN Radiography Chest X-Ray - ED: 1 View, Read by ED Physician, Heart, Lungs, Mediastinum, Bony Structures, No Acute Disease and Chronic Changes Diagnostic Testing: Clinical Impression(s) from Imaging Studies Chest X-Ray 06/02/23 00:53 IMPRESSION: No radiographic evidence of acute cardiopulmonary disease. Electronically Signed: Donaldo Castellon MD at 2:21 EST , Chest x-ray, portable, 2 views both AP interpreted by myself shows no acute abnormality. Normal cardiac silhouette. Normal lung cuevas. No infiltrate. Prior sternotomy. Discharge Plan Dx/Rx/DC Orders Clinical Impression: Fever, History of endocarditis, Leukocytosis, History of atrial fibrillation, History of prosthetic heart valve Disposition Disposition: Acute Care [facility]
[2023-06-02] MEDS: Acetaminophen 500 MG Tablet 1000 MG PO (00:49)
--- NOTE | 2023-06-02 00:53 | RAD_ITS ---
INDICATION: fever EXAMINATION/TECHNIQUE: X-RAY - AP view of chest COMPARISON: Chest x-ray from 03/12/2021 FINDINGS: LINES/DEVICES: None. LUNGS: No overt pulmonary edema or focal airspace consolidation. No sizable pleural effusion. No detectable pneumothorax. MEDIASTINUM AND CARDIOVASCULAR STRUCTURES: Stable upper limits normal heart size. Status post sternotomy and aortic valvuloplasty. Atherosclerotic calcifications along aorta. BONES AND SOFT TISSUES: Skeletal degenerative changes. RAD/Chest 1 View (Portable) IMPRESSION: No radiographic evidence of acute cardiopulmonary disease. Electronically Signed: Donaldo Castellon MD at 2:21 EST ,
[2023-06-02 01:11] LABS: Absolute Lymphocyte Count 0.25 X10^3/uL (0.83-4.51); Absolute Neutrophil Count 16.9 X10^3/uL (2.0-7.7); Basophil# 0.03 X10^3/uL; Basophil% 0.2 % (0-1); Hematocrit 39.7 % (40-54); Hemoglobin 12.4 g/dL (13.0-16.5); Lymphocyte # 0.25 X10^3/ul (0.83-4.51); Lymphocyte % 1.3 % (19-41); Mean Corp Hgb Conc 31.2 g/dL (32-36); Mean Corpuscular Hgb 28.7 pg (27.0-32.0); Mean Corpuscular Volume 91.9 fL (80-94); Mean Platelet Vol. 9.5 fl (6.2-12.0); Monocyte# 1.15 X10^3/uL; Monocyte% 6.2 % (0-10); NRBC Flagged by Analyzer 0 % (0-5); Neutrophil # 16.91 X10^3/uL (2.7-7.7); Neutrophil % 91.2 % (47-70); POSITIVE DIFFERENTIAL YES; POSITIVE MORPHOLOGY YES; Platelet Count 249 K/mm3 (150-450); Red Blood Count 4.32 M/mm3 (4.6-6.2); White Blood Count 18.5 K/mm3 (4.4-11.0)
[2023-06-02 01:14] LABS: Differential Indicated SCAN CRITERIA MET
[2023-06-02 01:29] LABS: International Normalized Ratio 3.8; Prothrombin Time (Protime)PT. 38.1 SECONDS (11.7-14.9)
[2023-06-02 01:32] LABS: Bacteria 0 SEEN /hpf (None Seen); Mucous, Urine 0 SEEN /hpf (<or=2+)
[2023-06-02 01:32] LABS: Anion Gap 3 (5-15); BUN 24 mg/dL (7-18); BUN/Creat Ratio 19.5 RATIO (10-20); Calcium,Total 9.2 mg/dL (8.5-10.1); Chloride 103 mmol/L (98-107); Creatinine, Serum 1.23 mg/dL (0.70-1.30); EST Glomerular Filtration Rate 61 mL/min (>60); Est Glom Filt Rate - Afr Amer 73 mL/min (>60); Estimated Creatinine Clearance 52.72 ml/min; Glucose 129 mg/dL (74-106); Sodium Level 136 mmol/L (136-145)
[2023-06-02 01:33] LABS: Color, Urine Yellow (Yellow); Glucose, Dipstick Normal (Normal); Ketone-Dipstick Negative (Negative); Leukocyte Esterase-Dipstick 25 /ul (Negative); Nitrite-Dipstick Negative (Negative); Occult Blood-Urine 150 /ul (Negative); Protein-Dipstick 15 mg/dl (Negative); Urine Bilirubin Dipstick Negative (Negative); Urine Clarity Clear (Clear); Urine Urobilinogen Normal (Normal)
[2023-06-02 01:43] LABS: Lactic Acid 2.2 mmol/L (0.4-1.9)
[2023-06-02 02:07] LABS: Anisocytosis 1+; Macrocytosis 1+; Platelet Estimate ADEQUATE (ADEQ); Red Cell Morphology N CHROM NORMAL (NORM C&C)
[2023-06-02 03:05] LABS: Red Blood Cells-Urine 0-5 SEEN /hpf (0-5); Squamous Epithelial Cells - UA 0-5 SEEN /hpf (0-5); White Blood Cells 5-10 SEEN /hpf (0-5)
--- NOTE | 2023-06-02 03:19 | PCM.HP.STD ---
HPI - General General Date of Admission: 06/02/23 Date of Service: 06/02/23 Chief Complaint: Fever of unknown origin HPI Narrative TRAMAINE MAST, is a 78 M who presented to [facility] ED on 06/02/2023 with fever of unknown origin. Patient seen at bedside in the ED. Patient was sitting up comfortably in bed, in no acute distress. Patient was very talkative on my interview, appeared to be answering questions appropriately for me but was consistently rambling with slightly tangential speech. Patient does have known history of anxiety with panic disorder and PTSD, and patient also states he has a history of hospital delirium on a previous hospitalization. Patient states that he had an episode this morning at home of significant rigors lasting 10 to 15 minutes. He took his temperature during this time and noted it to be between 101F and 103F on multiple checks. Patient denies any other infectious symptoms. He denies any chest pain, shortness of breath, abdominal pain or discomfort. Denies any back pain. Denies any pain or discomfort with urination. Denies any recent diarrhea. Patient states he was recent helping his girlfriend sister move into a correction in [place]. Patient's girlfriend and girlfriend's sister both came down with similar symptoms to his within the last week or 2, but on further questioning patient is not able to provide information on if girlfriend or girlfriend sister were diagnosed with any particular illness, treated with antibiotics, etc. Patient notably has history of aortic valve replacement with reconstruction of right ventricular outflow tract initially in 1996, with revision with composite graft in 2001. Patient states he had these procedures done in [place], unsure what hospital. Is noted in patient's records that he has history of endocarditis, but patient is not aware of any history of endocarditis and I am unable to find any further details regarding this. Patient is currently on Coumadin with goal INR 2.0-3.0. Patient also was recently hospitalized at [facility] from 04/25 to 05/04 for a lower GI bleed. Hospital course was fairly complicated, see discharge summary from 05/04 for further details. Importantly, there was concern that patient could have Crohn's disease, and Dr. Perez started him on methylprednisolone and had patient complete a course of p.o. vancomycin for 10 days for C. difficile prophylaxis. Patient states that he has been completing a prednisone taper since that discharge, and states he only had a few doses of low dose prednisone left at this time. 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 current use of anticoagulant nursing home current use of anticoagulant Nonrheumatic aortic (valve) insufficiency Nonrheumatic pulmonary valve insufficiency Other usp (current) drug therapy Palpitations Panic disorder Pneumaturia Post traumatic stress disorder Pseudomembranous colitis Pure hypercholesterolemia Scarlet fever Sigmoid diverticulitis Streptococcal endocarditis Home Medications warfarin 5 mg tablet 6.5 mg PO SUMOTUTHFRSA BLOOD THINNER 08/27/22 [History Last Taken 04/24/23] warfarin 1 mg tablet 7.5 mg PO WE BLOOD THINNER 09/01/22 [History Last Taken 04/24/23] duloxetine 60 mg capsule,delayed release 60 mg PO DAILY DEPRESSION 04/25/23 [History Last Taken 04/24/23] ferrous sulfate 325 mg (65 mg iron) tablet (FeroSul) 325 mg PO LUNCH #30 tabs 05/04/23 [Rx Last Taken Unknown] melatonin 10 mg capsule 10 mg PO QHS SLEEP 30 days #0 caps 05/04/23 [Rx Last Taken 04/24/23] prednisone 20 mg tablet 20 mg PO DAILY #30 tabs 05/04/23 [Rx Last Taken Unknown] metoprolol tartrate 50 mg tablet 50 mg PO BID BLOOD PRESSURE #180 TABLETS 05/14/23 [Rx Last Taken Unknown] lorazepam 0.5 mg tablet 0.5 mg PO BID 05/21/23 [History Last Taken Unknown] Allergy/AdvReac Type Severity Reaction Status Date / Time fentanyl Allergy Severe Other Verified 06/01/23 23:59 levofloxacin AdvReac Severe Passed out Verified 06/01/23 23:59 Family History Father CAD (coronary artery disease) Surgical History H/O pulmonic valve replacement History of colon resection History of colonoscopy (~04/2023) History of herniorrhaphy History of mechanical aortic valve replacement Social History Smoking Status: Former smoker how long ago did patient quit smokin years ago alcohol intake: current alcohol intake frequency: holidays/special occasions only Alcohol type: beer details: social caffeine: Yes Type: coffee Number of servings: 1 ROS Constitutional Constitutional: Reports chills and fever(s); Denies fatigue, malaise or weakness Eyes Eyes: Denies change in vision Cardiovascular Cardiovascular: Denies chest pain, dyspnea on exertion or edema Respiratory/Chest Respiratory/Chest: Denies cough, productive cough, shortness of breath at rest, shortness of breath with exertion or wheezing Gastrointestinal Gastrointestinal: Denies abdominal pain, constipation, diarrhea, nausea or vomiting Genitourinary Genitourinary: Denies dysuria Musculoskeletal Musculoskeletal: Denies arthralgias or back pain Neurologic Neurologic: Denies dizziness, focal weakness or headache(s) Vital Signs Vital Signs Vital Signs: 06/01/23 23:52 06/02/23 00:09 06/02/23 00:12 Temperature 98.9 F 101.2 F H Temperature Source Oral Oral Pulse Rate 108 H Respiratory Rate 15 Respiratory Effort Normal Respiratory Pattern Normal Blood Pressure 140/69 H Blood Pressure Mean 92 Pulse Ox 99 Oxygen Delivery Method Room Air 06/02/23 00:22 06/02/23 02:47 Temperature 103 F H Temperature Source Oral Pulse Rate 95 55 L Respiratory Rate 14 16 Respiratory Effort Respiratory Pattern Blood Pressure 134/70 H 129/66 H Blood Pressure Mean 91 87 Pulse Ox 95 100 Oxygen Delivery Method Room Air Room Air Weight Weight: 99.79 kg Body Mass Index (BMI) 30.7 Physical Exam Const alert and no apparent distress Constitutional Narrative: Elderly male, obese, sitting up comfortably in bed, very talkative but conversing normally, no acute distress. General Appearance: cooperative and comfortable HEENT normocephalic, head/scalp atraumatic, hearing grossly normal bilaterally and nasal mucous membranes and turbinates normal HEENT Narrative: Dry mucous membranes. Eyes PERRL, EOMs intact bilaterally and conjunctivae normal Neck full ROM, no lymphadenopathy and supple Lymph Lymphatic: no lymphadenopathy noted Chest inspection of chest normal Resp normal respiratory effort, normal air movement, no use of accessory muscles and clear to auscultation bilaterally Cardio regular rate and regular rhythm Cardio Narrative: Patient has significant systolic murmur noted on auscultation at right substernal and left substernal areas of auscultation. GI normal to inspection, nondistended, normoactive bowel sounds, soft to palpation, non-tender and non-distended Back/Spine normal ROM Extremity normal to inspection, full ROM and no pedal edema Skin no rashes or lesions noted Neuro moves all extremities and no focal motor deficits Speech: speech normal Results Lab / Micro Data 06/02/23 00:45 06/02/23 00:45 Labs: Laboratory Results - last 24 hr 06/02/23 00:40: PT 38.1 H, INR 3.8 06/02/23 00:45: WBC 18.5 H, RBC 4.32 L, Hgb 12.4 L, Hct 39.7 L, MCV 91.9, MCH 28.7, MCHC 31.2 L, RDW Std Deviation 69.0 H, RDW Coeff of Rich 20.0 H, Plt Count 249, MPV 9.5, Immature Gran % (Auto) 1.100 H, Neut % (Auto) 91.2 H, Lymph % (Auto) 1.3 L, [place] % (Auto) 6.2, Eos % (Auto) 0.0, Baso % (Auto) 0.2, Absolute Neuts (auto) 16.9 H, Absolute Lymphs (auto) 0.25 L, Nucleated RBC % 0, Differential Comment SEE COMMENT, Platelet Estimate ADEQUATE, RBC Morphology N CHROM, Anisocytosis 1+, Macrocytosis 1+, Sodium 136, Potassium 5.0, Chloride 103, Carbon Dioxide 30.0, Anion Gap 3 L, BUN 24 H, Creatinine 1.23, Estim Creat Clear Calc 52.72, Est GFR (MDRD) Af Amer 73, Est GFR (MDRD) Non-Af 61, BUN/Creatinine Ratio 19.5, Glucose 129 H, Lactic Acid 2.2 H*, Calcium 9.2 06/02/23 01:19: Urine Color Yellow, Urine Clarity Clear, Urine pH 7.0, Ur Specific [place] 1.010, Urine Protein 15 H, Urine Glucose (UA) Normal, Urine Ketones Negative, Urine Occult Blood 150 H, Urine Nitrite Negative, Urine Bilirubin Negative, Urine Urobilinogen Normal, Ur Leukocyte Esterase 25 H, Urine RBC 0-5 SEEN, Urine WBC 5-10 SEEN, Ur Squamous Epith Cells 0-5 SEEN, Urine Bacteria 0 SEEN, Urine Mucus 0 SEEN Micro: Microbiology 06/02/23 00:45 Mucosa - Nose SARS-CoV-2, Influenza & RSV (PCR) - Final Imagaing Radiology Impression Chest X-Ray 06/02/23 00:53 IMPRESSION: No radiographic evidence of acute cardiopulmonary disease. Electronically Signed: Donaldo Castellon MD at 2:21 EST , Assessment & Plan Assessment/Plan (1) Fever of unknown origin: PLAN: Plan Patient is a 78-year-old male who presented to [facility] ED on 06/02/2023 with fever of unknown origin. 1. Fever of unknown origin, sepsis without shock Multiple documented fevers of 103F in the ED. Patient reports fevers at home on day of admission of 101-103F. WBC count 18 K (though patient notably on prednisone), sinus tachycardia to low 100s, lactate 2.2; meets sepsis criteria. Chest x-ray nonacute. UA noninfectious. No abdominal pain or tenderness on exam. COVID and flu negative. ? Admit under inpatient status to PCU. Given history of heart valve replacement with possible history of endocarditis, as well as murmur on exam and no clear source of infection, have concern for possible endocarditis. Echo ordered. Will start patient on vancomycin and Zosyn for now. Blood cultures pending. Will give 1 L LR bolus now and start patient on maintenance IV fluids after that. Trend lactate. Trend CBC. 2. History of aortic valve replacement on Coumadin, supratherapeutic INR ? INR 3.8 on admit. Goal INR 2.0-3.0. Will hold home Coumadin dose today, repeat INR tomorrow. 3. History of recent lower GI bleed with concern for inflammatory bowel disease, chronic anemia See discharge summary on 05/[address] Perez's office note from 05/25 for further details. Completed course of p.o. vancomycin x 10 days for C. difficile prophylaxis. Unclear on patient's current dose of prednisone, is listed at 20 mg daily, not specified in Dr. Perez's note. Suspect this may be correct as patient states he is supposed to finish prednisone taper in the next few days. ? Will continue prednisone 20 mg daily for now. Hemoglobin 12.4 on admit, was 8-10 on previous admission; suspect some degree of hemodilution, but no concern for GI bleed at this time. Monitor CBC. Chronic medical conditions: ? Depression/anxiety/PTSD/insomnia: Continue home duloxetine, Ativan, melatonin. ? Hypertension: Holding home Lopressor. DVT prophylaxis: Lovenox CODE STATUS: Full code, unverified Expected disposition: TBD Total clinical time spent by myself addressing the patient's medical issues, reviewing all the data, and collaborating with patient's care team: 55 minutes. Charges/Coding Visit Charges Inpatient E&M: 70335 Init Hosp L2
[2023-06-02] MEDS: Lactated Ringers 1,000 ML 999 ML IV (04:09)
--- NOTE | 2023-06-02 04:43 | ECHOD_ITS ---
Reason For Study: Fever, R/o Endocarditis, Valve Replacement Eval Procedure This was a 2D Doppler, Color Flow transthoracic echocardiogram. The study was technically difficult. Patient uncooperative. Exam performed portable in ICU/CCU. Left Ventricle Normal LV size. The estimated ejection fraction is 40-45% %. Mild global left ventricular systolic dysfunction. There is mild global hypokinesis of the left ventricle. Right Ventricle Moderately dilated right ventricle. Moderate global right ventricular systolic dysfunction. Atria There is moderate biatrial dilatation. Mitral Valve The mitral valve is structurally normal. No prolapse or stenosis seen. Mild-Moderate (1-2+) mitral valve insufficiency. Tricuspid Valve Normal tricuspid valve. Moderate (2+) tricuspid valve insufficiency. Moderate pulmonary hypertension. Aortic Valve There is a mechanical prosthetic aortic valve in place. It was poorly visualized however there was no significant regurgitation or stenosis noted. Pulmonic Valve The pulmonic valve is not well visualized. Great Vessels Normal aortic root. No collapse of the inferior vena cava. Plethoric inferior vena cava. Pericardium/Pleural No pericardial effusion. MMode/2D Measurements & Calculations LVIDd: 4.9 cm IVSd: 0.94 cm LVOT diam: 2.0 cm LVIDs: 3.6 cm LVPWd: 0.99 cm LVOT area: 3.3 cm2 RVDd: 5.2 cm FS: 26.7 % Ao root diam: 3.0 cm LAV(MOD-bp): 73.8 ml LVAd ap4: 29.4 cm2 LAV(MOD-bp) Indexed: 33.6 ml/m2 LVLd ap4: 8.1 cm LAV(MOD-sp2): 52.5 ml EDV(MOD-sp4): 90.9 ml LAV(MOD-sp4): 81.5 ml EDV(sp4-el): 91.1 ml LVAs ap4: 18.7 cm2 LVLs ap4: 7.1 cm ESV(MOD-sp4): 43.4 ml ESV(sp4-el): 41.5 ml EF(MOD-sp4): 52.2 % EF(sp4-el): 54.5 % SV(MOD-sp4): 47.4 ml SV(sp4-el): 49.7 ml LA A4 area: 25.9 cm2 LA dimension(2D): 5.8 cm RA A4 area: 26.4 cm2 TAPSE: 1.2 cm Doppler Measurements & Calculations MV E max darrick: 77.9 cm/sec Lat Peak E' Darrick: 8.3 cm/sec Med Peak E' Darrick: 5.2 cm/sec E/E' lat: 9.4 E/E' med: 15.0 Ao V2 max: 171.7 cm/sec LV V1 max: 122.0 cm/sec SV(LVOT): 73.2 ml Ao max P.9 mmHg LV V1 max P.0 mmHg Ao V2 mean: 121.1 cm/sec LV V1 mean P.0 mmHg Ao mean P.5 mmHg LV V1 mean: 95.0 cm/sec Ao V2 VTI: 26.8 cm LV V1 VTI: 22.4 cm AV (velocity ratio): 0.83 SEVERIANO(I,D): 2.7 cm2 SEVERIANO(V,D): 2.3 cm2 PA V2 max: 160.3 cm/sec PI end-d darrick: 86.5 cm/sec TR max darrick: 298.1 cm/sec PA V2 mean: 122.8 cm/sec TR max P.6 mmHg ECHO/Echo Complete Interpretation Summary The estimated ejection fraction is 40-45% %. Mild global left ventricular systolic dysfunction. There is mild global hypokinesis of the left ventricle. There is a mechanical prosthetic aortic valve in place. It was poorly visualize d however there was no significant regurgitation or stenosis noted. Mild-Moderate (1-2+) mitral valve insufficiency. Ordering Physician: Rigoberto Romero Referring Physician: Donaldo Larson Performed By: Haley Austin, LOC, RVT
[2023-06-02 05:02] LABS: Reflex Lactate? Y
[2023-06-02] MEDS: Piperacil/Tazobactam 4.5 GM in 0.9% Normal Saline (100mL MB+) 100 ML IV (05:28)
[2023-06-02 05:37] LABS: Hematocrit 38.5 % (40-54); Mean Corp Hgb Conc 31.2 g/dL (32-36); Mean Corpuscular Hgb 28.9 pg (27.0-32.0); Mean Corpuscular Volume 92.8 fL (80-94); Mean Platelet Vol. 9.8 fl (6.2-12.0); POSITIVE MORPHOLOGY YES; Platelet Count 229 K/mm3 (150-450); RBC Distribution Width CV 20.1 % (11.6-14.6); RBC Distribution Width SD 69.4 fl (35.1-43.9); Red Blood Count 4.15 M/mm3 (4.6-6.2); White Blood Count 24.3 K/mm3 (4.4-11.0)
[2023-06-02] MEDS: Ondansetron 4 MG/2 ML Vial IV (05:38)
[2023-06-02] MEDS: Acetaminophen 325 MG Tablet 650 MG PO (05:38)
[2023-06-02 05:56] LABS: Anion Gap 3 (5-15); BUN 23 mg/dL (7-18); BUN/Creat Ratio 17.6 RATIO (10-20); Chloride 105 mmol/L (98-107); Creatinine, Serum 1.31 mg/dL (0.70-1.30); EST Glomerular Filtration Rate 56 mL/min (>60); Est Glom Filt Rate - Afr Amer 68 mL/min (>60); Estimated Creatinine Clearance 51.01 ml/min; Glucose 95 mg/dL (74-106); Potassium 4.6 mmol/L (3.5-5.1); Sodium Level 136 mmol/L (136-145)
[2023-06-02 06:10] LABS: Lactic Acid 2.7 mmol/L (0.4-1.9)
[2023-06-02] MEDS: Vancomycin HCl 2,000 MG in 0.9% Normal Saline (500mL Bag) 500 ML 250 MG IV (06:31)
[2023-06-02] MEDS: Lactated Ringers 1,000 ML 75 ML IV (06:31)
--- NOTE | 2023-06-02 06:36 | PCM.RX.CS ---
Consult Antibiotic Management Pharmacy has been consulted to manage selected antibiotic: Vancomycin Type of Intervention Type of Consult: New start Labs Labs: Sodium 136 mmol/L (136-145) 06/02/23 05:29 Potassium 4.6 mmol/L (3.5-5.1) 06/02/23 05:29 Chloride 105 mmol/L (98-107) 06/02/23 05:29 Carbon Dioxide 28.0 mmol/L (21.0-32.0) 06/02/23 05:29 Anion Gap 3 (5-15) L 06/02/23 05:29 BUN 23 mg/dL (7-18) H 06/02/23 05:29 Creatinine 1.31 mg/dL (0.70-1.30) H 06/02/23 05:29 Est GFR (MDRD) Af Amer 68 mL/min (>60) 06/02/23 05:29 Est GFR (MDRD) Non-Af 56 mL/min (>60) L 06/02/23 05:29 BUN/Creatinine Ratio 17.6 RATIO (10-20) 06/02/23 05:29 Glucose 95 mg/dL (74-106) 06/02/23 05:29 Microbiology Microbiology: Microbiology 06/02/23 00:45 Mucosa - Nose SARS-CoV-2, Influenza & RSV (PCR) - Final Dosing Weight Weight used for dosin.9 kg Estimated Creatinine Clearance Estimated Creatinine Clearance: 59.5 Goal Trough Goal Trough: 15-20 mcg/mL Pharmacy Plan for Drug Dosing Pharmacy Plan for Drug Dosing: Pharmacy Service will continue to monitor and adjust dosing as required. Follow-Up Labs Follow-Up Labs: Trough: Vancomycin Date/Time Labs Ordered Labs to be done on [date and time ordered]: 06/03 @ 1800
[2023-06-02] MEDS: LORazepam 2 MG/ML Syringe 1 MG IV (06:45)
[2023-06-02 06:49] LABS: Scan Indicated on CBC? Y/N YES- FLAGS NOTED
[2023-06-02] MEDS: Amiodarone 150 MG in Dextrose 5%-Water (100mL Bag) 100 ML 600 MG IV BOLUS (07:15)
--- NOTE | 2023-06-02 07:30 | CON.PCM.CC_ITS ---
Assessment & Plan Assessment/Plan (1) Fever of unknown origin: PLAN: Plan RECOMMENDATIONS: 1. Continue broad-spectrum antimicrobials as ordered. 2. Obtain echocardiogram. 3. Administer additional IV fluids as ordered. If fluid refractory hypotension persists, initiate vasopressor support. 4. Continue PPI therapy. 5. Obtain central venous access. 6. Initiate stress dose steroids as ordered. 7. Continue amiodarone. 8. Initiate Precedex for agitation. IMPRESSIONS: 1. Sepsis/fever of unknown origin The patient presented to the hospital with fevers and rigors of unclear etiology. No definitive source of infection has yet to be identified. Nevertheless, bacteremia would be a probability. The patient did present with evidence of lactic acidemia and altered mental status. The patient was initially hemodynamically stable and therefore only received a small amount of supplemental IV fluid hydration. However, following transfer to the ICU, the patient's hemodynamic status became more tenuous. Therefore, will administer the remainder of the sepsis fluids at 30 cc/kg. The patient has been initiated on appropriate broad-spectrum antimicrobials, pending culture results. Agree with obtaining respiratory viral panel. In light of the fact that he has been on corticosteroid therapy for at least the last month, we will start him empirically on stress dose steroids. If the patient remains not fluid responsive from a hemodynamic perspective, Levophed will be initiated. 2. History of aortic valve replacement/therapeutically anticoagulated on Coumadin/paroxysmal atrial fibrillation In light of his presenting symptoms, cycle troponins and obtain echocardiogram. The patient appears to be responding clinically to amiodarone, which will be continued. Continue to monitor INR daily. Once the patient becomes subtherapeutic, will initiate a heparin infusion. 3. Recent GI bleed with concern for inflammatory bowel disease The patient is currently being followed by Dr. Perez of gastroenterology. The patient has been on outpatient prednisone therapy, which I suspect has been for at least the last month. Given his tenuous hemodynamic status, will initiate stress dose steroids. The patient will be continued on twice daily PPI therapy. Hemoglobin is currently stable. Gastroenterology consultation is pending. 4. History of hypertension/hyperlipidemia/right bundle branch block/PTSD/anxiety Complicates care, management, recovery and prognosis. Continue to hold home antihypertensives. Transition from prednisone to stress dose steroids, as noted above. TIME: 40 minutes of critical care time, independent of procedures, was spent addressing the patient's sepsis, paroxysmal atrial fibrillation, review of all data and collaboration with the care team. HPI Consult Data Date of Consult: 06/03/23 HPI Narrative Reason for Consultation: Sepsis, fever of unknown origin HPI Narrative: The patient is a 78-year-old male, with a history as outlined below, who presented to the emergency department on the morning of June 02 with rigors, fevers and chills. The patient has a known history of underlying aortic valve d isease with aortic valve replacement in 1996 with revision in 2001. His medical history is also significant for hypertension, paroxysmal atrial fibrillation, hyperlipidemia. He has a documented history of wide-complex tachycardia with right bundle branch block. Unfortunately, the patient also suffers from PTSD and significant anxiety. The patient was recently admitted to the hospital April 25 through May 04, after presenting with rectal bleeding. The patient was seen in consultation by gastroenterology with concerns over potential Crohn's disease. The patient was started on methylprednisone for the aforementioned. The patient followed up with gastroenterology on May 25 and was apparently doing well from a clinical perspective. On presentation to the emergency department, the patient was documented to be febrile with a temperature of 101.2 ?F. He was otherwise hemodynamically stable and maintaining appropriate oxygen saturations on room air. Initial laboratory evaluation revealed an elevated white blood cell count to 18,000. Coagulation profile revealed an INR of 3.8. Chemistry profile was notable for a creatinine of 1.23 with a lactate of 2.2. Urine analysis was unrevealing. COVID RSV and influenza testing were negative. Blood and urine cultures were collected. The patient was initiated on supplemental IV fluids along with broad-spectrum antimicrobials. He was initially admitted to the progressive care unit. At approximately 0630, a rapid response team was called after the patient apparently voiced to the nurse that he did not feel well. According to documentation, he apparently went unresponsive and experienced tremors. His heart rate was noted to be 185 with a blood pressure of 120/67. EKG demonstrated a wide-complex tachycardia. The patient was administered a 150 mg bolus of amiodarone. He also received 1 mg of Ativan. The patient was subsequently transferred to the medical intensive care unit for further management. [facility] Medical History (Updated 06/02/23 @ 10:[address] 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 nurse current use of anticoagulant long term acute care registered nurse current use of anticoagulant Nonrheumatic aortic (valve) insufficiency Nonrheumatic pulmonary valve insufficiency Other intermediate (current) drug therapy Palpitations Panic disorder Pneumaturia Post traumatic stress disorder Pseudomembranous colitis Pure hypercholesterolemia Scarlet fever Sigmoid diverticulitis Streptococcal endocarditis Home Medications warfarin 5 mg tablet 6.5 mg PO SUMOTUTHFRSA BLOOD THINNER 08/27/22 [History Last Taken 04/24/23] warfarin 1 mg tablet 7.5 mg PO WE BLOOD THINNER 09/01/22 [History Last Taken 04/24/23] duloxetine 60 mg capsule,delayed release 60 mg PO DAILY DEPRESSION 04/25/23 [History Last Taken 04/24/23] ferrous sulfate 325 mg (65 mg iron) tablet (FeroSul) 325 mg PO LUNCH #30 tabs 1 07/05/22 [Rx Last Taken Unknown] melatonin 10 mg capsule 10 mg PO QHS SLEEP 30 days #0 caps 05/04/23 [Rx Last Taken 04/24/23] prednisone 20 mg tablet 20 mg PO DAILY #30 tabs 05/04/23 [Rx Last Taken Unknown] metoprolol tartrate 50 mg tablet 50 mg PO BID BLOOD PRESSURE #180 TABLETS 05/14/23 [Rx Last Taken Unknown] lorazepam 0.5 mg tablet 0.5 mg PO BID 05/21/23 [History Last Taken Unknown] Allergy/AdvReac Type Severity Reaction Status Date / Time fentanyl Allergy Severe Other Verified 06/01/23 23:59 levofloxacin AdvReac Severe Passed out Verified 06/01/23 23:59 Family History Father CAD (coronary artery disease) Surgical History H/O pulmonic valve replacement History of colon resection History of colonoscopy (~04/2023) History of herniorrhaphy History of mechanical aortic valve replacement Social History Smoking Status: Former smoker how long ago did patient quit smokin years ago alcohol intake: current alcohol intake frequency: holidays/special occasions only Alcohol type: beer details: social caffeine: Yes Type: coffee Number of servings: 1 ROS Review of Systems ROS Unobtainable: due to mental status Physical Exam Const alert Constitutional Narrative: Restless in bed and mumbling incoherently. General Appearance: in distress and ill appearing HEENT normocephalic and head/scalp atraumatic Eyes PERRL and EOMs intact bilaterally Neck supple General: trachea midline Chest inspection of chest normal Resp Effort and Inspection: tachypneic Auscultation: Negative for rales, rhonchi or wheezes Cardio S1 normal heart sound and S2 normal heart sound Cardio Narrative: Audible click present Rate: tachycardic Rhythm: abnormal rhythm Heart Sounds: murmur GI normal to inspection, nondistended, normoactive bowel sounds Extremity General Extremity: edema; Negative for clubbing Skin no rashes or lesions noted Neuro moves all extremities and no focal motor deficits Psych Activity / Motor Behavior: restless Lab / Micro Data 06/03/23 04:10 06/03/23 04:10 Labs: Laboratory Results - last 24 hr 06/02/23 00:40: PT 38.1 H, INR 3.8 06/02/23 00:45: WBC 18.5 H, RBC 4.32 L, Hgb 12.4 L, Hct 39.7 L, MCV 91.9, MCH 28.7, MCHC 31.2 L, RDW Std Deviation 69.0 H, RDW Coeff of Rich 20.0 H, Plt Count 249, MPV 9.5, Immature Gran % (Auto) 1.100 H, Neut % (Auto) 91.2 H, Lymph % (Auto) 1.3 L, [place] % (Auto) 6.2, Eos % (Auto) 0.0, Baso % (Auto) 0.2, Absolute Neuts (auto) 16.9 H, Absolute Lymphs (auto) 0.25 L, Nucleated RBC % 0, Differential Comment SEE COMMENT, Platelet Estimate ADEQUATE, RBC Morphology N CHROM, Anisocytosis 1+, Macrocytosis 1+, Sodium 136, Potassium 5.0, Chloride 103, Carbon Dioxide 30.0, Anion Gap 3 L, BUN 24 H, Creatinine 1.23, Estim Creat Clear Calc 52.72, Est GFR (MDRD) Af Amer 73, Est GFR (MDRD) Non-Af 61, BUN/Creatinine Ratio 19.5, Glucose 129 H, Lactic Acid 2.2 H*, Calcium 9.2 06/02/23 01:19: Urine Color Yellow, Urine Clarity Clear, Urine pH 7.0, Ur Specific [place] 1.010, Urine Protein 15 H, Urine Glucose (UA) Normal, Urine Ketones Negative, Urine Occult Blood 150 H, Urine Nitrite Negative, Urine Bilirubin Negative, Urine Urobilinogen Normal, Ur Leukocyte Esterase 25 H, Urine RBC 0-5 SEEN, Urine WBC 5-10 SEEN, Ur Squamous Epith Cells 0-5 SEEN, Urine Bacteria 0 SEEN, Urine Mucus 0 SEEN 06/02/23 05:29: WBC 24.3 H, RBC 4.15 L, Hgb 12.0 L, Hct 38.5 L, MCV 92.8, MCH 28.9, MCHC 31.2 L, RDW Std Deviation 69.4 H, RDW Coeff of Rich 20.1 H, Plt Count 229, MPV 9.8, Sodium 136, Potassium 4.6, Chloride 105, Carbon Dioxide 28.0, Anion Gap 3 L, BUN 23 H, Creatinine 1.31 H, Estim Creat Clear Calc 51.01, Est GFR (MDRD) Af Amer 68, Est GFR (MDRD) Non-Af 56 L, BUN/Creatinine Ratio 17.6, Glucose 95, Lactic Acid 2.7 H*, Calcium 9.0 Micro: Microbiology 06/02/23 00:45 Mucosa - Nose SARS-CoV-2, Influenza & RSV (PCR) - Final Imagaing Radiology Impression Chest X-Ray 06/02/23 00:53 IMPRESSION: No radiographic evidence of acute cardiopulmonary disease. Electronically Signed: Donaldo Castellon MD at 2:21 EST , Sepsis Attestation Sepsis Attestation: Agree w/Sepsis Possible Source of Sepsis: Unknown and Other (Suspected Bacteremia) Sepsis Organ Dysfunction Criteria Present: SBP < 90 mmHg or MAP < 65 mmHg and Lactic Acid > 2 mmol/L Fluid Resuscitation Fluid resuscitation indicated?: Yes Fluid Resuscitation ordered: 30 ml/kg fluid bolus ordered Charges/Coding Procedures Hospitalists Procedures: [id number] Critical Care 1st Hr
--- NOTE | 2023-06-02 07:36 | NURSING ---
at approximately 0634 pt stated he didn't feel well. this rn asked what his symptoms were and pt stated oh no not this again. i can't handle this again . he immediately went unresponsive, tremored and his eyes rolled into the back of his head. an water quality analyst was called at 0636. pt's o2 was at 63%, HR 185 and bp 120/67. dr raya arrived, pt began responding appropriately to questions. he was suctioned by an rn and blood was noted to be in the [place]. EKG showed wide tachycardic complex. dr raya ordered 150mg amiodarone, 1mg ativan; both meds were given. He then requested a transfer to icu. this rn gave verbal report to rosalia curriculum specialist and pt was transferred to icu.
[2023-06-02] MEDS: Amiodarone 360 MG in Dextrose 5% Viaflo Bag 192.8 ML 33.2999999999999972 MG CONT INF (07:41)
[2023-06-02] MEDS: dexMEDEtomidine 400 MCG in 0.9% Normal Saline (100mL Bag) 96 ML 12.0999999999999996 MCG CONT INF (07:41)
--- NOTE | 2023-06-02 07:46 | PCM.PN.HOSP ---
Reason for Visit Reason for Visit: Fever Subjective Subjective Mr. Nava is a 78-year-old white male who presented to the emergency department early this morning with fever. He does have a very complex past medical history. Patient states both his girlfriend and her sister had not been feeling well recently either. He developed a fever early on the morning of presentation and came to the emergency department for said fever. On presentation, per documentation, he was sitting up comfortably in the bed with no distress and was talkative however had some rambling and tangential thought processes. He does have a known history of anxiety and panic disorder with PTSD. There is documentation of previous delirium on previous hospitalizations. Patient reported that on the morning of presentation he had significant rigors that lasted 10 to 15 minutes and then he took his temperature during that time and he was noted to be between 101 and 103 degrees on multiple checks. He had no real other complaints. He had recently been helping his girlfriend move her sister into a longterm in [place]. Patient does have a notable history of aortic valve replacement with reconstruction of the right ventricular outflow tract in 1996 with revision composite graft in 2001. He is on Coumadin. He was recently hospitalized here with a GI bleed in early May and a CTA revealed GI bleeding in the right colon/cecum. Colonoscopy was performed and showed patchy moderate mucosal changes in the transverse colon hepatic flexure, ascending colon, cecum and appendiceal orifice secondary to colitis with moderate inflammation in the ileum secondary to ileitis. There was some concern that he had Crohn's disease so he was started on methylprednisolone and also given oral vancomycin for prophylaxis related to C. difficile. He did have recent C. difficile infection and was treated and completion. Vital signs on presentation showed a temperature of 101.2 and his Tmax since admission is 103.1, heart rate was 95, blood pressure 134/70, respiratory rate was 14 and oxygen saturation was 97% on room air. Cultures were obtained and infectious workup was pursued and he was placed on broad-spectrum antibiotics and admitted to the medical floor. Evidently, once arriving on the medical floor at approximately 630 this morning a rapid response team was called after the patient apparently had voiced to the nurse he was not feeling well. It is documented that he went unresponsive and experienced tremors. His heart rate was noted to be in the 180s with a blood pressure of 120/67 and the EKG demonstrated wide-complex tachycardia. He does have a chronic right bundle branch at baseline. He was given 150 mg of IV amiodarone and given Ativan 1 mg x 1 dose and transferred to the ICU. At the time of my evaluation the patient was very agitated and delirious. He was in the ICU and we are trying to establish more IVs so we can give the medications he required. ICU was at the bedside and we did start Precedex on him to see if this would help with his agitation and assist in his care. Objective Data Objective Data Vital Signs: Vital Signs Temp Pulse Resp BP Pulse Ox O2 Del Method 103.1 F H 103 H 17 104/59 L 97 Room Air 06/02/23 04:47 06/02/23 04:47 06/02/23 04:47 06/02/23 04:47 06/02/23 04:47 06/02/23 04:47 Oxygen Delivery Method Room Air Weight: 96.9 kg Body Mass Index (BMI) 29.0 Intake & Output: Intake and Output for Last 24 Hours 05/31/23 06/01/23 06/02/23 23:59 23:59 23:59 Intake Total 1203 / 1203 Balance 1203 / 1203 Lab / Micro Data 06/02/23 05:29 06/02/23 05:29 Labs: Laboratory Results - last 24 hr 06/02/23 00:40: PT 38.1 H, INR 3.8 06/02/23 00:45: WBC 18.5 H, RBC 4.32 L, Hgb 12.4 L, Hct 39.7 L, MCV 91.9, MCH 28.7, MCHC 31.2 L, RDW Std Deviation 69.0 H, RDW Coeff of Rich 20.0 H, Plt Count 249, MPV 9.5, Immature Gran % (Auto) 1.100 H, Neut % (Auto) 91.2 H, Lymph % (Auto) 1.3 L, [place] % (Auto) 6.2, Eos % (Auto) 0.0, Baso % (Auto) 0.2, Absolute Neuts (auto) 16.9 H, Absolute Lymphs (auto) 0.25 L, Nucleated RBC % 0, Differential Comment SEE COMMENT, Platelet Estimate ADEQUATE, RBC Morphology N CHROM, Anisocytosis 1+, Macrocytosis 1+, Sodium 136, Potassium 5.0, Chloride 103, Carbon Dioxide 30.0, Anion Gap 3 L, BUN 24 H, Creatinine 1.23, Estim Creat Clear Calc 52.72, Est GFR (MDRD) Af Amer 73, Est GFR (MDRD) Non-Af 61, BUN/Creatinine Ratio 19.5, Glucose 129 H, Lactic Acid 2.2 H*, Calcium 9.2 06/02/23 01:19: Urine Color Yellow, Urine Clarity Clear, Urine pH 7.0, Ur Specific [place] 1.010, Urine Protein 15 H, Urine Glucose (UA) Normal, Urine Ketones Negative, Urine Occult Blood 150 H, Urine Nitrite Negative, Urine Bilirubin Negative, Urine Urobilinogen Normal, Ur Leukocyte Esterase 25 H, Urine RBC 0-5 SEEN, Urine WBC 5-10 SEEN, Ur Squamous Epith Cells 0-5 SEEN, Urine Bacteria 0 SEEN, Urine Mucus 0 SEEN 06/02/23 05:29: WBC 24.3 H, RBC 4.15 L, Hgb 12.0 L, Hct 38.5 L, MCV 92.8, MCH 28.9, MCHC 31.2 L, RDW Std Deviation 69.4 H, RDW Coeff of Rich 20.1 H, Plt Count 229, MPV 9.8, Sodium 136, Potassium 4.6, Chloride 105, Carbon Dioxide 28.0, Anion Gap 3 L, BUN 23 H, Creatinine 1.31 H, Estim Creat Clear Calc 51.01, Est GFR (MDRD) Af Amer 68, Est GFR (MDRD) Non-Af 56 L, BUN/Creatinine Ratio 17.6, Glucose 95, Lactic Acid 2.7 H*, Calcium 9.0 Micro: Microbiology 06/02/23 00:45 Mucosa - Nose SARS-CoV-2, Influenza & RSV (PCR) - Final Radiography Diagnostic Testing: Radiology Impression Chest X-Ray 06/02/23 00:53 IMPRESSION: No radiographic evidence of acute cardiopulmonary disease. Electronically Signed: Donaldo Castellon MD at 2:21 EST , Assessment & Plan Assessment/Plan (1) Sepsis: (2) Paroxysmal atrial fibrillation with RVR: (3) Lactic acidosis: (4) Leukocytosis: (5) Anemia: QUALIFIERS: Anemia type: iron deficiency Iron deficiency anemia type: chronic blood loss Qualified Code(s): D50.0 - Iron deficiency anemia secondary to blood loss (chronic) (6) Elevated serum creatinine: (7) Toxic metabolic encephalopathy: PLAN: Plan Sepsis -Source is currently unclear -UA is unremarkable -Chest x-ray is unremarkable -COVID and flu are negative -Check respiratory viral panel -Blood cultures are pending -Check C. difficile if having diarrhea as patient has had C. difficile recently -Check procalcitonin -Continue broad-spectrum antibiotics with vancomycin and Zosyn -Patient is on prednisone 20 mg daily at baseline for over the last month--> start stress dose steroids 100 every 8 -Critical care medicine following-appreciate input A-fib with RVR -Patient has a history of paroxysmal atrial fibrillation and at baseline is on metoprolol 50 twice daily and Coumadin -Has had issues with paroxysmal atrial fibrillation that have required defibrillation and EP evaluation with previous acute hospitalizations -Will have to hold beta-edith due to soft blood pressures currently -Anticoagulation is on hold due to concern for GI bleed -With current RVR amiodarone bolus 150 mg was given and drip is ordered -Echocardiogram is pending Elevated serum creatinine -Serum creatinine appears to run between 0.9 and 1.1 -Current creatinine is 1.31 -Fluid resuscitation in process -Likely related to sepsis -Continue to monitor -Avoid nephrotoxins as able Lactic acidosis -Trending up -Treatment for sepsis in progress -See above Leukocytosis -Infectious workup as above -Continue antibiotics -Current white count is 24.3 with a significant left shift showing a 91.2% neutrophilia Toxic/metabolic encephalopathy -Likely related to the above -Patient has had delirium with previous hospitalizations as well -Precedex to assist with agitation and keep patient calm to avoid hurting himself and others -Monitor -Patient was alert and oriented on presentation Supratherapeutic INR -INR 3.8 on admission -Goal is 2.0-3.0 -Hold Coumadin and repeat INR tomorrow Anemia -Patient with recent lower GI bleeding -Colonoscopy on 04/27/2023 showed patchy moderate mucosal changes in the transverse colon, hepatic flexure, ascending colon, cecum, appendiceal orifice, and ileocecal valve secondary to colitis -Biopsy showed focal acute enteritis in the ileum, focal acute colitis in the cecum, and focal acute colitis from random biopsy in the colon -EGD was overtly unremarkable -Per GI recent note from 05/25/2023 there is concern for Crohn's disease and the patient was started on methylprednisolone at discharge and it was recommended that he have an outpatient follow-up with MRI enterography and repeat colonoscopy as an outpatient -We will cycle hemoglobin every 6 hours x 3 -IV Protonix 40 twice daily -Patient will be placed on Solu-Cortef due to hypotension and prednisone was stopped -Patient does have history of esophageal are so an 04/23/2021--> EGD done at [facility] and he had an esophageal ulcer distally that was clipped -May need GI intervention depending on blood counts and clinical status History of aortic valve disease -Remote history of aortic valve 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 -Subsequenty, status post a modified Bentyl/Ross procedure using a 25 mm [place] Hemashield composite graft (2001) for revision -Aortic valve disease has been stable -Echocardiogram is pending History of pulmonic valve replacement -Done as part of his aortic valve surgery in 1996 -Has been stable Hyperlipidemia -Patient is not on any statins -He is trying to make adjustments to his diet -Continued outpatient follow-up History of anxiety/depression/PTSD/insomnia -If patient is able to take oral medication we will continue duloxetine, Ativan, and melatonin DVT prophylaxis -Patient is fully anticoagulated with Coumadin CODE STATUS -Full code Sepsis Attestation Sepsis Alert: Yes Sepsis Attestation: Agree w/Sepsis Date exam was performed: 06/02/23 Time exam was performed: 07:30 Possible Source of Sepsis: Unknown Sepsis Organ Dysfunction Criteria Present: Lactic Acid > 2 mmol/L and New/Unexplained change in mental status Supportive Findings: Patient meets SIRS criteria with suspected source therefore meeting step criteria for Medicare with leukocytosis, tachycardia, fever and suspected source of bacteremia Fluid Resuscitation Fluid resuscitation indicated?: Yes Fluid Resuscitation ordered: 30 ml/kg fluid bolus ordered Amount of fluid ordered: 3,900 (Patient is also on steroids with prednisone 20 mg daily for the last month at baseline and was started on stress dose steroids)
[2023-06-02 08:22] LABS: Troponin-I HS 26 pg/mL (3.0-78.0)
[2023-06-02] MEDS: VIAFLEX IV (08:32)
[2023-06-02] MEDS: NORMAL SALINE IV (08:32)
--- NOTE | 2023-06-02 08:48 | RAD_ITS ---
EXAM: XR CHEST, 1 VIEW CLINICAL INDICATION: Central line placement TECHNIQUE: Frontal view of the chest. COMPARISON: XR Chest dated 06/02/2023 FINDINGS: LUNGS AND PLEURAL SPACES: Normal. No consolidation or edema. No pneumothorax. No effusion. HEART: Stable normal heart size. Aortic valve prosthesis noted. MEDIASTINUM: No mediastinal or hilar mass. BONES/JOINTS: No acute abnormality. TUBES, LINES AND DEVICES: Right internal jugular central venous catheter tip in the proximal superior vena cava. RAD/CXR for Line Placement IMPRESSION: Satisfactory central line placement without complication. Electronically Signed: Suleiman Park MD at 11:36 EST ,
--- NOTE | 2023-06-02 08:57 | PCM.OP.PRO ---
Procedure Report Date of Procedure: 06/02/23 Central Venous Catheter Indication: Lack of IV access, hemodynamic instability Consent was obtained from: Procedure performed emergently A time-out was completed verifying correct patient, procedure, site, positioning, and special equipment if applicable. The patient was placed in a dependent position appropriate for central line placement based on the vein to be cannulated. The patient's right neck was prepped and draped in a sterile fashion. 1% lidocaine was used to anesthetize the surrounding skin area. A triple-lumen catheter was introduced into the right IJ using the Seldinger technique and under ultrasound guidance. The catheter was threaded smoothly over the guidewire and appropriate blood return was obtained. Each lumen of the catheter was evacuated of air and flushed with sterile saline. The catheter was then sutured in place to the skin and a sterile dressing applied. Chest x-ray to confirm appropriate positioning is pending. ULTRASOUND GUIDANCE STATEMENT (Vascular Access): I performed ultrasound image acquisition and interpretation for needle placement during the procedure. The vessel was identified and found to be free of thrombosis by compression technique. A safe point of entry was marked at the skin in an angle for axis was determined. The needle was guided by obtaining free-flowing fluid and by real-time visualization. Procedures Hospitalists Procedures: 01422 Insert Non-tunnel CV Cath
--- NOTE | 2023-06-02 10:03 | EX.PCM.CON.G ---
HPI Consult Data Date of Consult: 06/02/23 HPI Narrative Reason for Consultation: Fever of unknown origin HPI Narrative: TRAMAINE MAST, is a 78 M who presents with a chief complaint of recurrent fevers.p in the ED as per the dictation from the admitting physician Ysabel patient was very talkative and appeared to be answering questions appropriately, but was consistently rambling with slightly tangential speech. He complained of significant rigors lasting 10 to 15 minutes. He took his temperature during this time and noted it to be between 101F and 103F on multiple checks. Patient denies any other infectious symptoms. As per the chart he stated that he was recent helping his girlfriend sister move into a longterm in [place]. Patient's girlfriend and girlfriend's sister both came down with similar symptoms to his within the last week or 2, but on further questioning patient is not able to provide information on if girlfriend or girlfriend sister were diagnosed with any particular illness, treated with antibiotics. Since he was admitted he was discovered to be in A-fib with RVR along with having recurrent fevers. He is currently admitted to the ICU in is not able to give a good history due to altered mental status. He is on broad-spectrum antibiotics and workup is in progress regarding fever of unknown origin. I gotten no him back in August 2022 when he was admitted for GI bleed. 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 His colonoscopy displays ulcerations with congestion and erythema in the terminal ileum and right sided colon. Stool studies were positive for fecal leukocytes , negative for C. difficile A and B toxin but positive for C. difficile antigen and C. difficile PCR. I started him on empiric vancomycin because we will be starting him on methylprednisolone for some Crohn's disease. Stool cultures were negative for Yersinia which can have a similar presentation and sometimes Campylobacter can cause the enterocolitis were negative. At the time the decision was based on a level 2 research that suggested that using half-maximal intravenous corticosteroids in people admitted to the hospital with concomitant antibiotic therapy (oral vancomycin) was a more effective approach than using standard high doses of IBD corticosteroids in the setting of colitis flare. He had a similar presentation recently in April where he presented with lower GI bleed while off of steroids. We repeated the colonoscopy and it again showed right-sided colitis with terminal ileitis. He was supposed to have an MR enterography and capsule endoscopy as an outpatient but he presented back to the hospital before the workup could be completed. He was on prednisone 20 mg at home prior to his admission. [facility] Medical History (Updated 06/02/23 @ 10:[address] 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 detention current use of anticoagulant Nonrheumatic aortic (valve) insufficiency Nonrheumatic pulmonary valve insufficiency Other prison (current) drug therapy Palpitations Panic disorder Pneumaturia Post traumatic stress disorder Pseudomembranous colitis Pure hypercholesterolemia Scarlet fever Sigmoid diverticulitis Streptococcal endocarditis Home Medications warfarin 5 mg tablet 6.5 mg PO SUMOTUTHFRSA BLOOD THINNER 08/27/22 [History Last Taken 04/24/23] warfarin 1 mg tablet 7.5 mg PO WE BLOOD THINNER 09/01/22 [History Last Taken 04/24/23] duloxetine 60 mg capsule,delayed release 60 mg PO DAILY DEPRESSION 04/25/23 [History Last Taken 04/24/23] ferrous sulfate 325 mg (65 mg iron) tablet (FeroSul) 325 mg PO LUNCH #30 tabs 05/04/23 [Rx Last Taken Unknown] melatonin 10 mg capsule 10 mg PO QHS SLEEP 30 days #0 caps 05/04/23 [Rx Last Taken 04/24/23] prednisone 20 mg tablet 20 mg PO DAILY #30 tabs 05/04/23 [Rx Last Taken Unknown] metoprolol tartrate 50 mg tablet 50 mg PO BID BLOOD PRESSURE #180 TABLETS 05/14/23 [Rx Last Taken Unknown] lorazepam 0.5 mg tablet 0.5 mg PO BID 05/21/23 [History Last Taken Unknown] Allergy/AdvReac Type Severity Reaction Status Date / Time fentanyl Allergy Severe Other Verified 06/01/23 23:59 levofloxacin AdvReac Severe Passed out Verified 06/01/23 23:59 Family History Father CAD (coronary artery disease) Surgical History H/O pulmonic valve replacement History of colon resection History of colonoscopy (~04/2023) History of herniorrhaphy History of mechanical aortic valve replacement Social History Smoking Status: Former smoker how long ago did patient quit smokin years ago alcohol intake: current alcohol intake frequency: holidays/special occasions only Alcohol type: beer details: social caffeine: Yes Type: coffee Number of servings: 1 ROS Review of Systems ROS Unobtainable: due to mental status Physical Exam Const alert Constitutional Narrative: Restless in bed and mumbling incoherently. General Appearance: in distress and ill appearing HEENT normocephalic and head/scalp atraumatic Eyes PERRL and EOMs intact bilaterally Neck supple General: trachea midline Chest inspection of chest normal Resp Effort and Inspection: tachypneic Auscultation: Negative for rales, rhonchi or wheezes Cardio S1 normal heart sound and S2 normal heart sound Cardio Narrative: Audible click present Rate: tachycardic Rhythm: abnormal rhythm Heart Sounds: murmur GI normal to inspection, nondistended, normoactive bowel sounds Extremity General Extremity: edema; Negative for clubbing Skin no rashes or lesions noted Neuro moves all extremities and no focal motor deficits Psych Activity / Motor Behavior: restless Lab / Micro Data 06/02/23 05:29 06/02/23 05:29 Labs: Laboratory Results - last 24 hr 06/02/23 00:40: PT 38.1 H, INR 3.8 06/02/23 00:45: WBC 18.5 H, RBC 4.32 L, Hgb 12.4 L, Hct 39.7 L, MCV 91.9, MCH 28.7, MCHC 31.2 L, RDW Std Deviation 69.0 H, RDW Coeff of Rich 20.0 H, Plt Count 249, MPV 9.5, Immature Gran % (Auto) 1.100 H, Neut % (Auto) 91.2 H, Lymph % (Auto) 1.3 L, [place] % (Auto) 6.2, Eos % (Auto) 0.0, Baso % (Auto) 0.2, Absolute Neuts (auto) 16.9 H, Absolute Lymphs (auto) 0.25 L, Nucleated RBC % 0, Differential Comment SEE COMMENT, Platelet Estimate ADEQUATE, RBC Morphology N CHROM, Anisocytosis 1+, Macrocytosis 1+, Sodium 136, Potassium 5.0, Chloride 103, Carbon Dioxide 30.0, Anion Gap 3 L, BUN 24 H, Creatinine 1.23, Estim Creat Clear Calc 52.72, Est GFR (MDRD) Af Amer 73, Est GFR (MDRD) Non-Af 61, BUN/Creatinine Ratio 19.5, Glucose 129 H, Lactic Acid 2.2 H*, Calcium 9.2 06/02/23 01:19: Urine Color Yellow, Urine Clarity Clear, Urine pH 7.0, Ur Specific [place] 1.010, Urine Protein 15 H, Urine Glucose (UA) Normal, Urine Ketones Negative, Urine Occult Blood 150 H, Urine Nitrite Negative, Urine Bilirubin Negative, Urine Urobilinogen Normal, Ur Leukocyte Esterase 25 H, Urine RBC 0-5 SEEN, Urine WBC 5-10 SEEN, Ur Squamous Epith Cells 0-5 SEEN, Urine Bacteria 0 SEEN, Urine Mucus 0 SEEN 06/02/23 05:29: WBC 24.3 H, RBC 4.15 L, Hgb 12.0 L, Hct 38.5 L, MCV 92.8, MCH 28.9, MCHC 31.2 L, RDW Std Deviation 69.4 H, RDW Coeff of Rich 20.1 H, Plt Count 229, MPV 9.8, Sodium 136, Potassium 4.6, Chloride 105, Carbon Dioxide 28.0, Anion Gap 3 L, BUN 23 H, Creatinine 1.31 H, Estim Creat Clear Calc 51.01, Est GFR (MDRD) Af Amer 68, Est GFR (MDRD) Non-Af 56 L, BUN/Creatinine Ratio 17.6, Glucose 95, Lactic Acid 2.7 H*, Calcium 9.0, Troponin I High Sens 26 Micro: Microbiology 06/02/23 00:45 Mucosa - Nose SARS-CoV-2, Influenza & RSV (PCR) - Final Imagaing Radiology Impression Chest X-Ray 06/02/23 00:53 IMPRESSION: No radiographic evidence of acute cardiopulmonary disease. Electronically Signed: Donaldo Castellon MD at 2:21 EST , Assessment & Plan Assessment/Plan (1) Crohn's disease: (2) Fever of unknown origin: (3) History of Clostridioides difficile colitis: PLAN: Plan Patient is a 78-year-old male who presented to [facility] ED on 06/02/2023 with fever of unknown origin. Fever of unknown origin, sepsis with Multiple documented fevers of 103F in the ED. he is exhibiting signs and symptoms of sepsis. He is on broad-spectrum antibiotics. Cultures for RSV, COVID and influenza are pending. He also has orders for stool test pending including stool for C. difficile, enteric pathogen's. His risk factor would be recent steroid usage. I am okay with him being on stress dose steroids for now. History of aortic valve replacement on Coumadin, supratherapeutic INR. Workup is in progress for possible endocarditis. History of recent lower GI bleed with concern for inflammatory bowel disease, chronic anemia He completed course of p.o. vancomycin x 10 days for C. difficile prophylaxis in August 2022 and in May 2023. Patient is on 20 mg a day. He has not shown any signs of GI bleeding at this time. I suspect that he is responding very well to the prednisone therapy and it is resulted in an improvement of his hemoglobin and possible stabilization of inflammatory bowel disease. We performed in inflammatory bowel disease diagnostic workup and him. His biopsies are consistent with acute colitis in the terminal ileum and the right side of the colon with focal granulomatous. Ileitis, or inflammation of the ileum with inflammation in the right side of the colon is often caused by Crohn?s disease. However, ileitis may be caused by a wide variety of other diseases. These include infectious diseases, spondyloarthropathies, vasculitides, ischemia, neoplasms, medication-induced, eosinophilic enteritis, and others.? I performed Quantiferon gold testing on him in anticipation for immunosuppression and both cause granulomas were seen on biopsies of the colon. There was no signs of Mycobacterium tuberculosis from the QuantiFERON gold test. IBD Expanded Panel [place] 134 High units 0-50 Negative <45 Equivocal 45 - 50 Positive >50 ACCA 24 units 0-90 Negative <80 Equivocal 80 - 90 Positive >90 ALCA 27 units 0-60 Negative <55 Equivocal 55 - 60 Positive >60 AMCA 49 units 0-100 Negative < 90 Equivocal 90 - 100 Positive >100 Atypical pANCA Negative Negative Comments Abnormal Suggestive of Crohn's Disease. Pattern is not conclusive for disease behavior risk stratification. Await stool test and blood test. Continue stress dose steroids. No other recommendations at this time. Charges/Coding Visit Charges Inpatient E&M: 03151 Init Hosp L3
[2023-06-02] MEDS: Pantoprazole Sodium 40 MG in 0.9% Normal Saline (100mL MB+) 100 ML 330 MG IV ×2 (10:05→20:52)
[2023-06-02 10:15] LABS: Procalcitonin 16.57 ng/mL (0.00-0.09)
[2023-06-02] MEDS: Norepinephrine 8 MG in 0.9% Normal Saline (250mL Bag) 242 ML 9.40000000000000036 MG CONT INF (10:26)
[2023-06-02] MEDS: dexMEDEtomidine 400 MCG in 0.9% Normal Saline (100mL Bag) 96 ML 24.1999999999999993 MCG CONT INF (10:35)
--- NOTE | 2023-06-02 11:32 | PCM.HOSP.N ---
Sepsis Attestation Sepsis Note Date exam was performed: 06/02/23 Time exam was performed: 10:13 Sepsis Attestation: Sepsis re-evaluation was performed Response to fluids: Non Fluid responsive hypotension and Vasopressors started
--- NOTE | 2023-06-02 13:03 | CON.PCM.UR_ITS ---
HPI Consult Data Date of Consult: 06/02/23 HPI Narrative Reason for Consultation: Unable to place Cortez catheter HPI Narrative: TRAMAINE MAST, is a 78 M who presents to the intensive care unit with sepsis and confusion the nursing staff has tried to place a catheter a few times because of the need to monitor vital signs critically during his sepsis but they were unable to place it they report that the catheter would only go in a few cent imeters and he had an obstruction that could not be passed. [facility] Medical History (Updated 06/02/23 @ 10:[address] 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 Palpitations Panic disorder Pneumaturia Post traumatic stress disorder Pseudomembranous colitis Pure hypercholesterolemia Scarlet fever Sigmoid diverticulitis Streptococcal endocarditis Home Medications warfarin 5 mg tablet 6.5 mg PO SUMOTUTHFRSA BLOOD THINNER 08/27/22 [History Last Taken 04/24/23] warfarin 1 mg tablet 7.5 mg PO WE BLOOD THINNER 09/01/22 [History Last Taken 04/24/23] duloxetine 60 mg capsule,delayed release 60 mg PO DAILY DEPRESSION 04/25/23 [History Last Taken 04/24/23] ferrous sulfate 325 mg (65 mg iron) tablet (FeroSul) 325 mg PO LUNCH #30 tabs 05/04/23 [Rx Last Taken Unknown] melatonin 10 mg capsule 10 mg PO QHS SLEEP 30 days #0 caps 05/04/23 [Rx Last Taken 04/24/23] prednisone 20 mg tablet 20 mg PO DAILY #30 tabs 05/04/23 [Rx Last Taken Unknown] metoprolol tartrate 50 mg tablet 50 mg PO BID BLOOD PRESSURE #180 TABLETS 05/14/23 [Rx Last Taken Unknown] lorazepam 0.5 mg tablet 0.5 mg PO BID 05/21/23 [History Last Taken Unknown] Allergy/AdvReac Type Severity Reaction Status Date / Time fentanyl Allergy Severe Other Verified 06/01/23 23:59 levofloxacin AdvReac Severe Passed out Verified 06/01/23 23:59 Family History Father CAD (coronary artery disease) Surgical History H/O pulmonic valve replacement History of colon resection History of colonoscopy (~04/2023) History of herniorrhaphy History of mechanical aortic valve replacement Social History Smoking Status: Former smoker how long ago did patient quit smokin years ago alcohol intake: current alcohol intake frequency: holidays/special occasions only Alcohol type: beer details: social caffeine: Yes Type: coffee Number of servings: 1 Lab / Micro Data 06/02/23 05:29 06/02/23 05:29 Labs: Laboratory Results - last 24 hr 06/02/23 00:40: PT 38.1 H, INR 3.8 06/02/23 00:45: WBC 18.5 H, RBC 4.32 L, Hgb 12.4 L, Hct 39.7 L, MCV 91.9, MCH 28.7, MCHC 31.2 L, RDW Std Deviation 69.0 H, RDW Coeff of Rich 20.0 H, Plt Count 249, MPV 9.5, Immature Gran % (Auto) 1.100 H, Neut % (Auto) 91.2 H, Lymph % (Auto) 1.3 L, [place] % (Auto) 6.2, Eos % (Auto) 0.0, Baso % (Auto) 0.2, Absolute Neuts (auto) 16.9 H, Absolute Lymphs (auto) 0.25 L, Nucleated RBC % 0, Differential Comment SEE COMMENT, Platelet Estimate ADEQUATE, RBC Morphology N CHROM, Anisocytosis 1+, Macrocytosis 1+, Sodium 136, Potassium 5.0, Chloride 103, Carbon Dioxide 30.0, Anion Gap 3 L, BUN 24 H, Creatinine 1.23, Estim Creat Clear Calc 52.72, Est GFR (MDRD) Af Amer 73, Est GFR (MDRD) Non-Af 61, BUN/Creatinine Ratio 19.5, Glucose 129 H, Lactic Acid 2.2 H*, Calcium 9.2 06/02/23 01:19: Urine Color Yellow, Urine Clarity Clear, Urine pH 7.0, Ur Specific [place] 1.010, Urine Protein 15 H, Urine Glucose (UA) Normal, Urine Ketones Negative, Urine Occult Blood 150 H, Urine Nitrite Negative, Urine Bilirubin Negative, Urine Urobilinogen Normal, Ur Leukocyte Esterase 25 H, Urine RBC 0-5 SEEN, Urine WBC 5-10 SEEN, Ur Squamous Epith Cells 0-5 SEEN, Urine Bacteria 0 SEEN, Urine Mucus 0 SEEN 06/02/23 05:29: WBC 24.3 H, RBC 4.15 L, Hgb 12.0 L, Hct 38.5 L, MCV 92.8, MCH 28.9, MCHC 31.2 L, RDW Std Deviation 69.4 H, RDW Coeff of Rich 20.1 H, Plt Count 229, MPV 9.8, Sodium 136, Potassium 4.6, Chloride 105, Carbon Dioxide 28.0, Anion Gap 3 L, BUN 23 H, Creatinine 1.31 H, Estim Creat Clear Calc 51.01, Est GFR (MDRD) Af Amer 68, Est GFR (MDRD) Non-Af 56 L, BUN/Creatinine Ratio 17.6, Glucose 95, Lactic Acid 2.7 H*, Calcium 9.0, Troponin I High Sens 26 06/02/23 09:40: Procalcitonin 16.57 H Micro: Microbiology 06/02/23 01:30 Blood Culture (Wb) - Left Forearm Blood Culture - Preliminary 06/02/23 09:05 Mucosa - Nose Respiratory Panel (PCR) - Final 06/02/23 00:45 Mucosa - Nose SARS-CoV-2, Influenza & RSV (PCR) - Final Imagaing Radiology Impression Chest X-Ray 06/02/23 00:53 IMPRESSION: No radiographic evidence of acute cardiopulmonary disease. Electronically Signed: Donaldo Castellon MD at 2:21 EST , Chest X-Ray 06/02/23 08:48 IMPRESSION: Satisfactory central line placement without complication. Electronically Signed: Suleiman Park MD at 11:36 EST ,
--- NOTE | 2023-06-02 13:04 | PCM.OPRPT ---
Report of Operation Date of Procedure: 06/02/23 Pre-Operative Diagnosis: Urethral obstruction, urethral stricture Post-Operative Diagnosis: Anterior urethral stricture Surgery/Procedure Performed:: Cystoscopy dilation of urethral stricture and placement of Brown catheter Description of Surgical Findings:: Patient was supine on the table the penis and testicles were prepped and draped in usual fashion went in with a flexible cystoscope into the penis and immediately encountered a stricture in the proximal urethra and the anterior part of the urethra pinpoint stricture I then used a Glidewire up with a Glidewire through the stricture and then over the Glidewire stretch the stricture from 12 Hungarian up to 18 Hungarian with serial sounds, after the stricture was dilated then a 16 Hungarian stillaguamish tip catheter was used over the wire and this went past the stricture easily and into the bladder and we got return of yellow urine. 10 cc in the balloon and the catheter was secured in place to gravity drainage. Once the patient does not need a catheter anymore the catheter can be removed. Surgeon: Nabil Tyson Type of Anesthesia: Local Drains: 16 fr stillaguamish tip brown Estimated Blood Loss (mL): 0 Admit VTE Documentation VTE Present on Admission: No VTE Mechan Device Prophylaxis: SCD's VTE Pharm Prophylaxis ordered?: No
[2023-06-02] MEDS: Hydrocortisone Sod Succinate 100 MG/2 ML Vial 50 MG IV ×2 (13:38→18:05)
[2023-06-02] MEDS: Amiodarone 360 MG in Dextrose 5% Viaflo Bag 192.8 ML 16.6999999999999993 MG CONT INF (13:39)
[2023-06-02] MEDS: Piperacil/Tazobactam 3.375 GM in 0.9% Normal Saline (50mL MB+) 50 ML IV ×2 (13:48→20:52)
[2023-06-02] MEDS: dexMEDEtomidine 1,000 MCG in 0.9% Normal Saline (250mL Bag) 240 ML 36.2999999999999972 MCG CONT INF ×2 (13:49→20:43)
--- NOTE | 2023-06-02 14:05 | CASEMGMT ---
IVY FERRERA Face to Face with patient for initial transition planning/care coordination assessment. RN CM introduced self and role at [facility]. Patient lying in bed, sleeping, significant other at bedside . Savanah willing to participate in assessment and is able to answer all questions appropriately. Care providers, pharmacy, and demographics verified. Will monitor course of treatment and progress with therapy for safe disposition at discharge. Savanah states she has no further needs or concerns at this time. CM to follow for discharge planning needs that may arise. PCP: Marsha Specialists: Friend, GI; [facility], cardiology Preferred Pharmacy: [facility] [place]; [facility] Retail Insurance: [place] Prescription Benefit: yes Living Will/HPOA: yes, daughter Dominique Landon LNOK: daughter, significant other Living Arrangements: Patient lives alone in a 2 story home with 5 steps and railing to enter. Patient was independent at home and able to ambulate stairs. Transportation: self, daughter, significant other DME/HHC: Patient has walker at home. Patient has been to TCU in the past. Disposition Plan: TBD, anticipate possible SNF vs HHC at discharge pending course of treatment and progress with therapy Chantal BADILLO, RN, CM
--- NOTE | 2023-06-02 15:52 | PCM.CONS.C ---
Assessment & Plan Assessment/Plan (1) Paroxysmal atrial fibrillation with RVR: PLAN: Plan 1. Paroxysmal atrial fibrillation with rapid ventricular response #2 congestive heart failure with mildly reduced ejection fraction, EF 40 to 45%. 3. 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 Moderate pulmonary hypertension. #5 septic shock. 6. Fever and leukocytosis #7 history of GI bleed Plan Hemoglobin is a stable Continue with Coumadin, keep INR 2.5-3 if GI are okay with that and no evidence of acute bleed. Agree with holding metoprolol in the meantime due to hypotension. Continue with amiodarone drip in the meantime, he is still in atrial fibrillation however his heart rate is currently controlled. Echocardiogram showed mildly reduced ejection fraction with an EF of 40 to 45%, mild global hypokinesis, mechanical aortic valve in place with no significant regurgitation or stenosis, moderately dilated and moderately reduced RV systolic function, moderate pulmonary hypertension. Continue treatment of sepsis/septic shock and leukocytosis as per primary team. Continue to follow-up on blood cultures. Recommend ID evaluation. Patient might need MARIAA on Sunday if blood cultures are positive or if ID recommends MARIAA Mildly reduced EF is probably related to A-fib with RVR. However patient is unable to give history in the meantime, patient might need ischemic evaluation with a stress test once is stable and prior to discharge HPI Consult Data Date of Consult: 06/02/23 HPI Narrative Reason for Consultation: A-fib with RVR HPI Narrative: TRAMAINE MAST, is a 78 M who presents with fever. Patient is confused and currently on Precedex drip so HPI is according to medical records. Patient has past medical history of paroxysmal atrial fibrillation and mechanical aortic valve on Coumadin. Also has history of GI bleed. Patient was brought to the emergency room for fever, he is confused and restless. Patient was found to be in A-fib with RVR in addition to hypotension due to septic shock. Currently was admitted to the ICU for septic shock and A-fib with RVR. Patient was placed on amiodarone drip for rate control, his INR was supratherapeutic upon admission so his Coumadin has been held. Upon my evaluation the today his heart rate was controlled, he is still in atrial fibrillation however his heart rate is controlled in the 70s beat per minute, his blood pressure is 113/70 on 5 mics of Levophed. He is confused and not answering my questions. EKG upon presentation showed A-fib with RVR, right bundle branch block and PVCs. 1 set of troponin was negative. Patient has significant leukocytosis and elevated procalcitonin. He is on antibiotics currently. Blood cultures are pending. Echocardiogram today showed mildly reduced EF of 40 to 45% with mild global hypokinesis, mechanical prosthetic aortic valve in place without any significant regurgitation or stenosis. Moderately dilated RV with moderately reduced RV systolic function. Mild to moderate tricuspid regurgitation, moderate pulmonary hypertension. [facility] Medical History (Updated 06/02/23 @ 10:[address] 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 Palpitations Panic disorder Pneumaturia Post traumatic stress disorder Pseudomembranous colitis Pure hypercholesterolemia Scarlet fever Sigmoid diverticulitis Streptococcal endocarditis Home Medications warfarin 5 mg tablet 6.5 mg PO SUMOTUTHFRSA BLOOD THINNER 08/27/22 [History Last Taken 04/24/23] warfarin 1 mg tablet 7.5 mg PO WE BLOOD THINNER 09/01/22 [History Last Taken 04/24/23] duloxetine 60 mg capsule,delayed release 60 mg PO DAILY DEPRESSION 04/25/23 [History Last Taken 04/24/23] ferrous sulfate 325 mg (65 mg iron) tablet (FeroSul) 325 mg PO LUNCH #30 tabs 05/04/23 [Rx Last Taken Unknown] melatonin 10 mg capsule 10 mg PO QHS SLEEP 30 days #0 caps 05/04/23 [Rx Last Taken 04/24/23] prednisone 20 mg tablet 20 mg PO DAILY #30 tabs 05/04/23 [Rx Last Taken Unknown] metoprolol tartrate 50 mg tablet 50 mg PO BID BLOOD PRESSURE #180 TABLETS 05/14/23 [Rx Last Taken Unknown] lorazepam 0.5 mg tablet 0.5 mg PO BID 05/21/23 [History Last Taken Unknown] Allergy/AdvReac Type Severity Reaction Status Date / Time fentanyl Allergy Severe Other Verified 06/01/23 23:59 levofloxacin AdvReac Severe Passed out Verified 06/01/23 23:59 Family History Father CAD (coronary artery disease) Surgical History H/O pulmonic valve replacement History of colon resection History of colonoscopy (~04/2023) History of herniorrhaphy History of mechanical aortic valve replacement Social History Smoking Status: Former smoker how long ago did patient quit smokin years ago alcohol intake: current alcohol intake frequency: holidays/special occasions only Alcohol type: beer details: social caffeine: Yes Type: coffee Number of servings: 1 ROS ROS Narrative Unable to obtain as the patient is confused and on Precedex drip. Physical Exam Const Negative for alert or oriented x3 Constitutional Narrative: Confused and restless HEENT normocephalic and head/scalp atraumatic Chest inspection of chest normal and palpation of chest normal Resp normal respiratory effort and clear to auscultation bilaterally Cardio regular rate; Negative for regular rhythm or no murmurs Cardio Narrative: Mechanical valve click noted Extremity Negative for no pedal edema General Extremity: edema bilateral Skin General Skin Exam: pallor Psych Psych Narrative: Unable to assess as he is confused and restless Risk Stratification Risk Stratification Applicable: No Objective Data Vital Signs: Vital Signs Temp Pulse Resp BP Pulse Ox O2 Del Method O2 Flow Rate 98.4 F 76 20 H 121/74 H 96 Nasal Cannula 3 06/02/23 12:30 06/02/23 15:30 06/02/23 15:00 06/02/23 15:30 06/02/23 15:00 06/02/23 15:00 06/02/23 15:00 Oxygen Flow Rate (L/min) 3 Oxygen Delivery Method Nasal Cannula Weight: 213 lb 10.047 oz Body Mass Index (BMI) 29.0 Intake & Output: Intake and Output for Last 24 Hours 05/31/23 06/01/23 06/02/23 23:59 23:59 23:59 Intake Total 5388.61 / 5388.61 Output Total 50 / 50 Balance 5338.61 / 5338.61 Lab / Micro Data 06/02/23 05:29 06/02/23 05:29 Labs: Laboratory Results - last 24 hr 06/02/23 00:40: PT 38.1 H, INR 3.8 06/02/23 00:45: WBC 18.5 H, RBC 4.32 L, Hgb 12.4 L, Hct 39.7 L, MCV 91.9, MCH 28.7, MCHC 31.2 L, RDW Std Deviation 69.0 H, RDW Coeff of Rich 20.0 H, Plt Count 249, MPV 9.5, Immature Gran % (Auto) 1.100 H, Neut % (Auto) 91.2 H, Lymph % (Auto) 1.3 L, [place] % (Auto) 6.2, Eos % (Auto) 0.0, Baso % (Auto) 0.2, Absolute Neuts (auto) 16.9 H, Absolute Lymphs (auto) 0.25 L, Nucleated RBC % 0, Differential Comment SEE COMMENT, Platelet Estimate ADEQUATE, RBC Morphology N CHROM, Anisocytosis 1+, Macrocytosis 1+, Sodium 136, Potassium 5.0, Chloride 103, Carbon Dioxide 30.0, Anion Gap 3 L, BUN 24 H, Creatinine 1.23, Estim Creat Clear Calc 52.72, Est GFR (MDRD) Af Amer 73, Est GFR (MDRD) Non-Af 61, BUN/Creatinine Ratio 19.5, Glucose 129 H, Lactic Acid 2.2 H*, Calcium 9.2 06/02/23 01:19: Urine Color Yellow, Urine Clarity Clear, Urine pH 7.0, Ur Specific [place] 1.010, Urine Protein 15 H, Urine Glucose (UA) Normal, Urine Ketones Negative, Urine Occult Blood 150 H, Urine Nitrite Negative, Urine Bilirubin Negative, Urine Urobilinogen Normal, Ur Leukocyte Esterase 25 H, Urine RBC 0-5 SEEN, Urine WBC 5-10 SEEN, Ur Squamous Epith Cells 0-5 SEEN, Urine Bacteria 0 SEEN, Urine Mucus 0 SEEN 06/02/23 05:29: WBC 24.3 H, RBC 4.15 L, Hgb 12.0 L, Hct 38.5 L, MCV 92.8, MCH 28.9, MCHC 31.2 L, RDW Std Deviation 69.4 H, RDW Coeff of Rich 20.1 H, Plt Count 229, MPV 9.8, Sodium 136, Potassium 4.6, Chloride 105, Carbon Dioxide 28.0, Anion Gap 3 L, BUN 23 H, Creatinine 1.31 H, Estim Creat Clear Calc 51.01, Est GFR (MDRD) Af Amer 68, Est GFR (MDRD) Non-Af 56 L, BUN/Creatinine Ratio 17.6, Glucose 95, Lactic Acid 2.7 H*, Calcium 9.0, Troponin I High Sens 26 06/02/23 09:40: Procalcitonin 16.57 H Micro: Microbiology 06/02/23 13:30 Stool C. difficile GDH Antigen & Toxins - Final 06/02/23 13:30 Stool Clostridioides difficile (PCR) - Final 06/02/23 00:45 Blood Culture (Wb) - Anticubital Right Blood Culture - Preliminary 06/02/23 01:30 Blood Culture (Wb) - Left Forearm Blood Culture - Preliminary 06/02/23 09:05 Mucosa - Nose Respiratory Panel (PCR) - Final 06/02/23 00:45 Mucosa - Nose SARS-CoV-2, Influenza & RSV (PCR) - Final Cardiology Labs/Tests 06/02/23 00:40: PT 38.1 H, INR 3.8 06/02/23 00:45: WBC 18.5 H, RBC 4.32 L, Hgb 12.4 L, Hct 39.7 L, MCV 91.9, MCH 28.7, MCHC 31.2 L, Plt Count 249, MPV 9.5, Immature Gran % (Auto) 1.100 H, Neut % (Auto) 91.2 H, Lymph % (Auto) 1.3 L, [place] % (Auto) 6.2, Eos % (Auto) 0.0, Baso % (Auto) 0.2, Absolute Neuts (auto) 16.9 H, Nucleated RBC % 0, Sodium 136, Potassium 5.0, Chloride 103, Carbon Dioxide 30.0, Anion Gap 3 L, BUN 24 H, Creatinine 1.23, Est GFR (MDRD) Af Amer 73, Est GFR (MDRD) Non-Af 61, BUN/Creatinine Ratio 19.5, Glucose 129 H, Lactic Acid 2.2 H*, Calcium 9.2 06/02/23 01:19: Urine Color Yellow, Urine Clarity Clear, Urine pH 7.0, Ur Specific [place] 1.010, Urine Protein 15 H, Urine Glucose (UA) Normal, Urine Ketones Negative, Urine Occult Blood 150 H, Urine Nitrite Negative, Urine Bilirubin Negative, Urine Urobilinogen Normal, Ur Leukocyte Esterase 25 H, Urine RBC 0-5 SEEN, Urine WBC 5-10 SEEN 06/02/23 05:29: WBC 24.3 H, RBC 4.15 L, Hgb 12.0 L, Hct 38.5 L, MCV 92.8, MCH 28.9, MCHC 31.2 L, Plt Count 229, MPV 9.8, Sodium 136, Potassium 4.6, Chloride 105, Carbon Dioxide 28.0, Anion Gap 3 L, BUN 23 H, Creatinine 1.31 H, Est GFR (MDRD) Af Amer 68, Est GFR (MDRD) Non-Af 56 L, BUN/Creatinine Ratio 17.6, Glucose 95, Lactic Acid 2.7 H*, Calcium 9.0 Rhythm: EKG: ECHO: Stress Test: Cardiac Cath: PCI: CT Surgery: Holter monitor: EPS: PPM: CXR: Chest CT Scan: Radiography Diagnostic Testing: Radiology Impression Chest X-Ray 06/02/23 00:53 IMPRESSION: No radiographic evidence of acute cardiopulmonary disease. Electronically Signed: Donaldo Castellon MD at 2:21 EST , Echocardiogram 06/02/23 04:43 Interpretation Summary The estimated ejection fraction is 40-45% %. Mild global left ventricular systolic dysfunction. There is mild global hypokinesis of the left ventricle. There is a mechanical prosthetic aortic valve in place. It was poorly visualized however there was no significant regurgitation or stenosis noted. Mild-Moderate (1-2+) mitral valve insufficiency. Ordering Physician: Rigoberto Romero Referring Physician: Donaldo Larson Performed By: Haley Austin, LOC, RVT Chest X-Ray 06/02/23 08:48 IMPRESSION: Satisfactory central line placement without complication. Electronically Signed: Suleiman Park MD at 11:36 EST ,
[2023-06-02] MEDS: Vancomycin HCl 1,250 MG in 0.9% Normal Saline (250mL Bag) 250 ML 167 MG IV (18:04)
[2023-06-03] VITALS (67 sets, daily range): BP systolic 67–170; BP diastolic 30–78; PULSE 56–110; RESP 12–20; TEMP 36.2–37.1; O2SAT 87–100; BMI 29.9
[2023-06-03] MEDS: Hydrocortisone Sod Succinate 100 MG/2 ML Vial 50 MG IV ×5 (00:55→22:51)
[2023-06-03] MEDS: Amiodarone 360 MG in Dextrose 5% Viaflo Bag 192.8 ML 16.6999999999999993 MG CONT INF (00:59)
[2023-06-03] MEDS: dexMEDEtomidine 1,000 MCG in 0.9% Normal Saline (250mL Bag) 240 ML 36.2999999999999972 MCG CONT INF (03:37)
[2023-06-03] MEDS: 0.9% Saline Lock 10 ML Syringe IV ×3 (04:22→18:15)
[2023-06-03 04:31] LABS: Absolute Neutrophil Count 26.8 X10^3/uL (2.0-7.7); Basophil# 0.11 X10^3/uL; Basophil% 0.4 % (0-1); Eosinophil# 0.06 X10^3/uL; Eosinophils% 0.2 % (0-5); Hematocrit 36.1 % (40-54); Hemoglobin 11.1 g/dL (13.0-16.5); Lymphocyte % 1.4 % (19-41); Mean Corp Hgb Conc 30.7 g/dL (32-36); Mean Corpuscular Hgb 28.5 pg (27.0-32.0); Mean Corpuscular Volume 92.6 fL (80-94); Monocyte# 0.96 X10^3/uL; Monocyte% 3.4 % (0-10); NRBC Flagged by Analyzer 0 % (0-5); Neutrophil # 26.77 X10^3/uL (2.7-7.7); Neutrophil % 93.6 % (47-70); POSITIVE DIFFERENTIAL YES; POSITIVE MORPHOLOGY YES; Platelet Count 190 K/mm3 (150-450); RBC Distribution Width CV 19.9 % (11.6-14.6); RBC Distribution Width SD 67.7 fl (35.1-43.9); White Blood Count 28.6 K/mm3 (4.4-11.0)
[2023-06-03 04:34] LABS: Differential Indicated SCAN CRITERIA MET
[2023-06-03 04:44] LABS: International Normalized Ratio 3.3
[2023-06-03 04:48] LABS: Differential Comment SCANNED
[2023-06-03 04:55] LABS: ALB/GLOB Ratio 0.7 RATIO (0.9-2.4); AST(SGOT) 40 U/L (15-37); Alanine Aminotransfer ALT/SGPT 55 U/L (16-61); Albumin, Serum 2.4 g/dL (3.2-5.0); Alkaline Phosphatase 99 U/L (45-117); Anion Gap 6 (5-15); BUN 25 mg/dL (7-18); BUN/Creat Ratio 22.1 RATIO (10-20); Calcium,Total 7.4 mg/dL (8.5-10.1); Chloride 110 mmol/L (98-107); Creatinine, Serum 1.13 mg/dL (0.70-1.30); EST Glomerular Filtration Rate 67 mL/min (>60); Est Glom Filt Rate - Afr Amer 81 mL/min (>60); Estimated Creatinine Clearance 59.13 ml/min; Globulin 3.5 g/dL (2.2-4.2); Glucose 166 mg/dL (74-106); Phosphorus 3.2 mg/dL (2.5-4.9); Potassium 4.2 mmol/L (3.5-5.1); Protein, Total 5.9 g/dL (6.4-8.2); Sodium Level 139 mmol/L (136-145)
[2023-06-03] MEDS: Vancomycin HCl 1,250 MG in 0.9% Normal Saline (250mL Bag) 250 ML 167 MG IV (05:36)
[2023-06-03] MEDS: Piperacil/Tazobactam 3.375 GM in 0.9% Normal Saline (50mL MB+) 50 ML IV ×3 (05:37→20:57)
--- NOTE | 2023-06-03 05:54 | PCM.PN.INT ---
Assessment & Plan Assessment/Plan (1) Fever of unknown origin: PLAN: Plan RECOMMENDATIONS: 1. Continue broad-spectrum antimicrobials as ordered. 2. Continue Levophed to maintain a mean arterial pressure at or above 65 mmHg. 3. Continue PPI therapy. 4. Continue stress dose steroids as ordered. 5. Continue amiodarone. 6. Attempt to wean Precedex as tolerated. IMPRESSIONS: 1. Sepsis/fever of unknown origin The patient presented to the hospital with fevers and rigors. The patient appears to have staph bacteremia based upon early blood culture results. The patient did present with evidence of lactic acidemia and altered mental status. The patient was initially hemodynamically stable and therefore only received a small amount of supplemental IV fluid hydration. However, following transfer to the ICU, the patient's hemodynamic status became more tenuous. Ultimately, the patient required initiation of vasopressor support. Plan to continue Levophed to maintain a mean arterial pressure at or above 65 mmHg. He will also be continued on antimicrobials as ordered. In light of the fact that he has been on corticosteroid therapy for at least the last month, we will continue him on stress dose steroids. Ultimately, the patient may require MARIAA given his presenting bacteremia and history of valvular heart disease. 2. History of aortic valve replacement/therapeutically anticoagulated on Coumadin/paroxysmal atrial fibrillation Clinically stable at this time. Continue amiodarone and continue to monitor INR daily. Once the patient becomes subtherapeutic, will initiate a heparin infusion. 3. Recent GI bleed with concern for inflammatory bowel disease The patient is currently being followed by Dr. Perez of gastroenterology. The patient has been on outpatient prednisone therapy, which I suspect has been for at least the last month. Accordingly, given his acute presentation, the patient was started on stress dose steroids. The patient will be continued on twice daily PPI therapy. Hemoglobin remains stable. 4. History of hypertension/hyperlipidemia/right bundle branch block/PTSD/anxiety Complicates care, management, recovery and prognosis. Continue to hold home antihypertensives. Transition from prednisone to stress dose steroids, as noted above. TIME: 32 minutes of critical care time, independent of procedures, was spent addressing the patient's sepsis, paroxysmal atrial fibrillation, review of all data and collaboration with the care team. Subjective Subjective The patient was seen and examined at the bedside this morning. Events from the last 24 hours have been reviewed. The patient is currently afebrile and hemodynamically stable on low-dose Levophed. The patient is documented to be overall net +5.6 L for the hospitalization. White count is elevated at 28,000. INR this morning was noted to be 3.3. Creatinine has normalized at 1.13. The patient remains on Precedex on account of his intermittent agitation. He did have periods of delirium overnight according to nursing report. Objective Data Objective Data The patient's most recent lab work, culture data and imaging studies have all been personally reviewed. Surface echocardiogram demonstrated normal LV size with an ejection fraction of 40 to 45%. Mild global LV systolic dysfunction was noted. The RV was moderately dilated with moderate global RV systolic dysfunction along with biatrial dilatation and moderate pulmonary hypertension noted. Preliminary blood cultures dated June 02 were positive for Staph aureus. Vital Signs: Vital Signs Temp Pulse Resp BP Pulse Ox O2 Del Method O2 Flow Rate 97.2 F L 63 16 77/52 L 98 Room Air 0 06/03/23 04:00 06/03/23 04:00 06/03/23 04:00 06/03/23 05:00 06/03/23 04:00 06/03/23 04:00 06/03/23 00:00 Oxygen Flow Rate (L/min) 0 Oxygen Delivery Method Room Air Weight: 221 lb 5.506 oz Body Mass Index (BMI) 29.9 Intake & Output: Intake and Output for Last 24 Hours 06/01/23 06/02/23 06/03/23 23:59 23:59 23:59 Intake Total 6194.08 / 6222.74 437.60 / 437.60 Output Total 600 / 1000 400 / 400 Balance 5594.08 / 5222.74 37.60 / 37.60 Lab / Micro Data Attestation: I reviewed the patient's lab results. 06/03/23 04:10 06/03/23 04:10 Labs: Laboratory Results - last 24 hr 06/02/23 05:29: Sodium 136, Potassium 4.6, Chloride 105, Carbon Dioxide 28.0, Anion Gap 3 L, BUN 23 H, Creatinine 1.31 H, Estim Creat Clear Calc 51.01, Est GFR (MDRD) Af Amer 68, Est GFR (MDRD) Non-Af 56 L, BUN/Creatinine Ratio 17.6, Glucose 95, Lactic Acid 2.7 H*, Calcium 9.0, Troponin I High Sens 26 06/02/23 09:40: Procalcitonin 16.57 H 06/03/23 04:10: WBC 28.6 H, RBC 3.90 L, Hgb 11.1 L, Hct 36.1 L, MCV 92.6, MCH 28.5, MCHC 30.7 L, RDW Std Deviation 67.7 H, RDW Coeff of Rich 19.9 H, Plt Count 190, MPV 10.0, Immature Gran % (Auto) 1.000 H, Neut % (Auto) 93.6 H, Lymph % (Auto) 1.4 L, [place] % (Auto) 3.4, Eos % (Auto) 0.2, Baso % (Auto) 0.4, Absolute Neuts (auto) 26.8 H, Absolute Lymphs (auto) 0.40 L, Nucleated RBC % 0, Differential Comment SCANNED, PT 34.0 H, INR 3.3, Sodium 139, Potassium 4.2, Chloride 110 H, Carbon Dioxide 23.0, Anion Gap 6, BUN 25 H, Creatinine 1.13, Estim Creat Clear Calc 59.13, Est GFR (MDRD) Af Amer 81, Est GFR (MDRD) Non-Af 67, BUN/Creatinine Ratio 22.1 H, Glucose 166 H, Calcium 7.4 L, Phosphorus 3.2, Magnesium 2.0, Total Bilirubin 1.20 H, AST 40 H, ALT 55, Alkaline Phosphatase 99, Total Protein 5.9 L, Albumin 2.4 L, Globulin 3.5, Albumin/Globulin Ratio 0.7 L Micro: Microbiology 06/02/23 00:45 Blood Culture (Wb) - Anticubital Right Bacteria Detection (PCR) - Final Staphylococcus aureus 06/02/23 00:45 Blood Culture (Wb) - Anticubital Right Blood Culture - Preliminary 06/02/23 13:30 Stool C. difficile GDH Antigen & Toxins - Final 06/02/23 13:30 Stool Clostridioides difficile (PCR) - Final 06/02/23 01:30 Blood Culture (Wb) - Left Forearm Blood Culture - Preliminary 06/02/23 09:05 Mucosa - Nose Respiratory Panel (PCR) - Final 06/02/23 00:45 Mucosa - Nose SARS-CoV-2, Influenza & RSV (PCR) - Final Radiography Diagnostic Testing: Radiology Impression Echocardiogram 06/02/23 04:43 Interpretation Summary The estimated ejection fraction is 40-45% %. Mild global left ventricular systolic dysfunction. There is mild global hypokinesis of the left ventricle. There is a mechanical prosthetic aortic valve in place. It was poorly visualized however there was no significant regurgitation or stenosis noted. Mild-Moderate (1-2+) mitral valve insufficiency. Ordering Physician: Rigoberto Romero Referring Physician: Donaldo Larson Performed By: Haley Austin, LOC, RVT Chest X-Ray 06/02/23 08:48 IMPRESSION: Satisfactory central line placement without complication. Electronically Signed: Suleiman Park MD at 11:36 EST , Physical Exam Const alert and no apparent distress Constitutional Narrative: Appears more comfortable than yesterday. General Appearance: cooperative HEENT normocephalic and head/scalp atraumatic Eyes PERRL and EOMs intact bilaterally Neck supple General: trachea midline and CVC in place Chest inspection of chest normal Resp normal respiratory effort Auscultation: Negative for rales, rhonchi or wheezes Cardio S1 normal heart sound and S2 normal heart sound Cardio Narrative: Audible click present Rate: bradycardia Rhythm: abnormal rhythm Heart Sounds: murmur GI normal to inspection, nondistended, normoactive bowel sounds Extremity General Extremity: edema; Negative for clubbing Skin no rashes or lesions noted Neuro moves all extremities and no focal motor deficits Psych Activity / Motor Behavior: restless Charges/Coding Procedures Hospitalists Procedures: 67239 Critical Care 1st Hr
[2023-06-03] MEDS: Pantoprazole Sodium 40 MG in 0.9% Normal Saline (100mL MB+) 100 ML 330 MG IV ×2 (10:32→20:53)
[2023-06-03] MEDS: Amiodarone 200 MG Tablet PO (10:34)
[2023-06-03] MEDS: Ferrous Sulfate 325 MG Tablet PO (10:42)
[2023-06-03] MEDS: LORazepam 0.5 MG Tablet PO ×2 (10:42→20:57)
[2023-06-03] MEDS: DULoxetine Hcl 60 MG Capsule PO (11:58)
--- NOTE | 2023-06-03 12:20 | PN.CARD_ITS ---
Subjective Subjective Patient was seen and examined today. He is sitting in chair. He is awake, alert and oriented. Denied any chest pain or shortness of breath. He is still hypotensive on Levophed. He is in atrial fibrillation with controlled rate in the 60s and 70s beat per minute. Objective Data Vital Signs: Vital Signs Temp Pulse Resp BP Pulse Ox O2 Del Method O2 Flow Rate 97.5 F L 73 16 97/55 L 96 Room Air 0 06/03/23 12:00 06/03/23 12:15 06/03/23 12:15 06/03/23 12:15 06/03/23 12:15 06/03/23 12:15 06/03/23 00:00 Oxygen Flow Rate (L/min) 0 Oxygen Delivery Method Room Air Weight: 221 lb 5.506 oz Body Mass Index (BMI) 29.9 Intake & Output: Intake and Output for Last 24 Hours 06/01/23 06/02/23 06/03/23 23:59 23:59 23:59 Intake Total 6194.08 / 6222.74 1165.93 / 1165.93 Output Total 600 / 1000 1000 / 1000 Balance 5594.08 / 5222.74 165.93 / 165.93 Lab / Micro Data 06/03/23 04:10 06/03/23 04:10 Labs: Laboratory Results - last 24 hr 06/03/23 04:10: WBC 28.6 H, RBC 3.90 L, Hgb 11.1 L, Hct 36.1 L, MCV 92.6, MCH 28.5, MCHC 30.7 L, RDW Std Deviation 67.7 H, RDW Coeff of Rich 19.9 H, Plt Count 190, MPV 10.0, Immature Gran % (Auto) 1.000 H, Neut % (Auto) 93.6 H, Lymph % (Auto) 1.4 L, [place] % (Auto) 3.4, Eos % (Auto) 0.2, Baso % (Auto) 0.4, Absolute Neuts (auto) 26.8 H, Absolute Lymphs (auto) 0.40 L, Nucleated RBC % 0, Differential Comment SCANNED, PT 34.0 H, INR 3.3, Sodium 139, Potassium 4.2, Chloride 110 H, Carbon Dioxide 23.0, Anion Gap 6, BUN 25 H, Creatinine 1.13, Estim Creat Clear Calc 59.13, Est GFR (MDRD) Af Amer 81, Est GFR (MDRD) Non-Af 67, BUN/Creatinine Ratio 22.1 H, Glucose 166 H, Calcium 7.4 L, Phosphorus 3.2, Magnesium 2.0, Total Bilirubin 1.20 H, AST 40 H, ALT 55, Alkaline Phosphatase 99, Total Protein 5.9 L, Albumin 2.4 L, Globulin 3.5, Albumin/Globulin Ratio 0.7 L Micro: Microbiology 06/02/23 01:19 Urine, Clean Catch Urine Culture - Preliminary Staphylococcus aureus 06/02/23 01:30 Blood Culture (Wb) - Left Forearm Blood Culture - Preliminary Staphylococcus aureus 06/02/23 00:45 Blood Culture (Wb) - Anticubital Right Bacteria Detection (PCR) - Final Staphylococcus aureus 06/02/23 00:45 Blood Culture (Wb) - Anticubital Right Blood Culture - Preliminary Staphylococcus aureus 06/02/23 13:30 Stool C. difficile GDH Antigen & Toxins - Final 06/02/23 13:30 Stool Clostridioides difficile (PCR) - Final 06/02/23 09:05 Mucosa - Nose Respiratory Panel (PCR) - Final Cardiology Labs/Tests 06/03/23 04:10: WBC 28.6 H, RBC 3.90 L, Hgb 11.1 L, Hct 36.1 L, MCV 92.6, MCH 28.5, MCHC 30.7 L, Plt Count 190, MPV 10.0, Immature Gran % (Auto) 1.000 H, Neut % (Auto) 93.6 H, Lymph % (Auto) 1.4 L, [place] % (Auto) 3.4, Eos % (Auto) 0.2, Baso % (Auto) 0.4, Absolute Neuts (auto) 26.8 H, Nucleated RBC % 0, PT 34.0 H, INR 3.3, Sodium 139, Potassium 4.2, Chloride 110 H, Carbon Dioxide 23.0, Anion Gap 6, BUN 25 H, Creatinine 1.13, Est GFR (MDRD) Af Amer 81, Est GFR (MDRD) Non-Af 67, BUN/Creatinine Ratio 22.1 H, Glucose 166 H, Calcium 7.4 L, Phosphorus 3.2, Magnesium 2.0, Total Bilirubin 1.20 H Rhythm: EKG: ECHO: Stress Test: Cardiac Cath: PCI: CT Surgery: Holter monitor: EPS: PPM: CXR: Chest CT Scan: Radiography Diagnostic Testing: Radiology Impression Echocardiogram 06/02/23 04:43 Interpretation Summary The estimated ejection fraction is 40-45% %. Mild global left ventricular systolic dysfunction. There is mild global hypokinesis of the left ventricle. There is a mechanical prosthetic aortic valve in place. It was poorly visualized however there was no significant regurgitation or stenosis noted. Mild-Moderate (1-2+) mitral valve insufficiency. Ordering Physician: Rigoberto Romero Referring Physician: Donaldo Larson Performed By: Haley Austin, LOC, RVT Physical Exam Const alert and oriented x3 HEENT normocephalic and head/scalp atraumatic Eyes PERRL and EOMs intact bilaterally Neck full ROM and no JVD Resp Auscultation: crackles and rales Cardio regular rate; Negative for regular rhythm Cardio Narrative: Mechanical click Psych mental status grossly normal and thought process normal Assessment & Plan Assessment/Plan (1) Paroxysmal atrial fibrillation with RVR: PLAN: Plan 1. Paroxysmal atrial fibrillation : Rate is controlled #2 congestive heart failure with mildly reduced ejection fraction, EF 40 to 45%. 3. 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 Moderate pulmonary hypertension. #5 septic shock. 6. Fever and leukocytosis #7 history of GI bleed Plan Echocardiogram showed mildly reduced ejection fraction with an EF of 40 to 45%, mild global hypokinesis, mechanical aortic valve in place with no significant regurgitation or stenosis, moderately dilated and moderately reduced RV systolic function, moderate pulmonary hypertension. Start patient on heparin drip once INR is down to 2.5 if GI are okay with that Agree with holding metoprolol in the meantime due to hypotension. Switch IV amiodarone to p.o. amiodarone 200 mg daily. Continue pressor support as per disaster or damage control specialist and primary team Patient was started on stress dose steroids due to possible adrenal insu fficiency as he was on long-term steroids therapy. Continue treatment of sepsis/septic shock and leukocytosis as per primary team. Continue to follow-up on blood cultures. Recommend ID evaluation. Patient might need MARIAA on Sunday if repeat blood cultures are positive or if ID recommends MARIAA Mildly reduced EF could be due to septic shock or due to to A-fib with RVR. However patient would need ischemic evaluation with a stress test once is stable and prior to discharge
--- NOTE | 2023-06-03 12:51 | PCM.PN.HOSP ---
Reason for Visit Reason for Visit: Fever Subjective Subjective Mental status is much improved. Patient states he is feeling better overall. Still on very low-dose of Levophed at this time with weaning in process. Patient has no significant complaints at this time. Significant other is at the bedside. Objective Data Objective Data Vital Signs: Vital Signs Temp Pulse Resp BP Pulse Ox O2 Del Method O2 Flow Rate 97.5 F L 73 16 97/55 L 96 Room Air 0 06/03/23 12:00 06/03/23 12:15 06/03/23 12:15 06/03/23 12:15 06/03/23 12:15 06/03/23 12:15 06/03/23 00:00 Oxygen Flow Rate (L/min) 0 Oxygen Delivery Method Room Air Weight: 100.4 kg Body Mass Index (BMI) 29.9 Intake & Output: Intake and Output for Last 24 Hours 06/01/23 06/02/23 06/03/23 23:59 23:59 23:59 Intake Total 6194.08 / 6222.74 1165.93 / 1165.93 Output Total 600 / 1000 1000 / 1000 Balance 5594.08 / 5222.74 165.93 / 165.93 Lab / Micro Data 06/03/23 04:10 06/03/23 04:10 Labs: Laboratory Results - last 24 hr 06/03/23 04:10: WBC 28.6 H, RBC 3.90 L, Hgb 11.1 L, Hct 36.1 L, MCV 92.6, MCH 28.5, MCHC 30.7 L, RDW Std Deviation 67.7 H, RDW Coeff of Rich 19.9 H, Plt Count 190, MPV 10.0, Immature Gran % (Auto) 1.000 H, Neut % (Auto) 93.6 H, Lymph % (Auto) 1.4 L, [place] % (Auto) 3.4, Eos % (Auto) 0.2, Baso % (Auto) 0.4, Absolute Neuts (auto) 26.8 H, Absolute Lymphs (auto) 0.40 L, Nucleated RBC % 0, Differential Comment SCANNED, PT 34.0 H, INR 3.3, Sodium 139, Potassium 4.2, Chloride 110 H, Carbon Dioxide 23.0, Anion Gap 6, BUN 25 H, Creatinine 1.13, Estim Creat Clear Calc 59.13, Est GFR (MDRD) Af Amer 81, Est GFR (MDRD) Non-Af 67, BUN/Creatinine Ratio 22.1 H, Glucose 166 H, Calcium 7.4 L, Phosphorus 3.2, Magnesium 2.0, Total Bilirubin 1.20 H, AST 40 H, ALT 55, Alkaline Phosphatase 99, Total Protein 5.9 L, Albumin 2.4 L, Globulin 3.5, Albumin/Globulin Ratio 0.7 L Micro: Microbiology 06/02/23 01:19 Urine, Clean Catch Urine Culture - Preliminary Staphylococcus aureus 06/02/23 01:30 Blood Culture (Wb) - Left Forearm Blood Culture - Preliminary Staphylococcus aureus 06/02/23 00:45 Blood Culture (Wb) - Anticubital Right Bacteria Detection (PCR) - Final Staphylococcus aureus 06/02/23 00:45 Blood Culture (Wb) - Anticubital Right Blood Culture - Preliminary Staphylococcus aureus 06/02/23 13:30 Stool C. difficile GDH Antigen & Toxins - Final 06/02/23 13:30 Stool Clostridioides difficile (PCR) - Final 06/02/23 09:05 Mucosa - Nose Respiratory Panel (PCR) - Final 06/02/23 00:45 Mucosa - Nose SARS-CoV-2, Influenza & RSV (PCR) - Final Radiography Diagnostic Testing: Radiology Impression Echocardiogram 06/02/23 04:43 Interpretation Summary The estimated ejection fraction is 40-45% %. Mild global left ventricular systolic dysfunction. There is mild global hypokinesis of the left ventricle. There is a mechanical prosthetic aortic valve in place. It was poorly visualized however there was no significant regurgitation or stenosis noted. Mild-Moderate (1-2+) mitral valve insufficiency. Ordering Physician: Riogberto Romero Referring Physician: Donaldo Larson Performed By: Haley Austin, RDCS, RVT Physical Exam Const alert, oriented x3, no apparent distress and well nourished; Negative for healthy appearing Constitutional Narrative: elderly male, obese, sitting up in a chair at the bedside, very talkative but conversing normally, significant other at bedside, appears comfortable, currently nontoxic General Appearance: cooperative HEENT normocephalic and head/scalp atraumatic HEENT Narrative: Mild hearing loss, Mallampati 2-3, no thrush Resp normal respiratory effort, normal air movement, no retractions, no use of accessory muscles and clear to auscultation bilaterally Auscultation: Negative for rales, rhonchi or wheezes Cardio regular rate, S1 normal heart sound, S2 normal heart sound, no murmurs, no rub, no gallops and no clicks Cardio Narrative: Rhythm is irregularly irregular but rate is currently controlled GI normal to inspection, nondistended, normoactive bowel sounds, soft to palpation and non-tender Extremity no clubbing, cyanosis or edema Extremity Narrative: Pedal pulses are 2+ Neuro oriented x3, moves all extremities and no focal motor deficits Speech: speech normal Psych affect normal Psych Narrative: Interacts appropriately, very pleasant Assessment & Plan Assessment/Plan (1) Sepsis: (2) Paroxysmal atrial fibrillation with RVR: (3) Lactic acidosis: (4) Leukocytosis: (5) Anemia: QUALIFIERS: Anemia type: iron deficiency Iron deficiency anemia type: chronic blood loss Qualified Code(s): D50.0 - Iron deficiency anemia secondary to blood loss (chronic) (6) Elevated serum creatinine: (7) Toxic metabolic encephalopathy: (8) Cardiomyopathy: (9) Urethral stricture: PLAN: Plan Septic shock secondary to Staph aureus bacteremia and UTI -Patient was not fluid responsive and was started on pressors -Remains on low-dose Levophed -If still requiring Levophed tomorrow we will consider addition of midodrine 10 mg 3 times daily -Urine cultures positive for Staph aureus -Blood cultures x 2 are positive for Staph aureus -Repeat blood culture pending for today for clearance -TTE does not show any valvular vegetations however may require MARIAA -Await repeat cultures for clearance and ID input -If MARIAA is desired will likely proceed with on Sunday or Sunday -Chest x-ray is unremarkable -COVID and flu are negative -Respiratory viral panel was unremarkable -C. difficile was unremarkable -Procalcitonin was markedly elevated at 16.57 -Continue broad-spectrum antibiotics with vancomycin and Zosyn -Consult ID-anticipate evaluation on Sunday -Critical care medicine following-appreciate input A-fib with RVR -Remains in A-fib but rates are now controlled -Patient has a history of paroxysmal atrial fibrillation and at baseline is on metoprolol 50 twice daily and Coumadin -Has had issues with paroxysmal atrial fibrillation that have required defibrillation and EP evaluation with previous acute hospitalizations -Continue to hold beta-edith -Continue to hold anticoagulation and will plan to transition to heparin drip once INR is less than 2.5 in preparation for MARIAA -Continue amiodarone per cardiology recommendations--> amiodarone switched from IV to p.o. 200 mg daily -Echocardiogram shows a rest EF at 40 to 45%, mild global hypokinesis, mechanical aortic valve in place with no significant regurgitation or stenosis, moderately dilated and reduced RV systolic function, moderate pulmonary hypertension -Cardiology following-appreciate input Cardiomyopathy -Currently unclear if ischemic or nonischemic however overall suspect nonischemic -Echo as above -May be related to sepsis -Once able, will start appropriate goal-directed therapy and patient will need outpatient follow-up -Ischemic evaluation with stress test recommended once patient is stable prior to discharge -Cardiology is following-appreciate input Elevated serum creatinine -Serum creatinine appears to run between 0.9 and 1.1 -Current creatinine is 1.13 -Likely related to sepsis -Continue to monitor -Avoid nephrotoxins as able Lactic acidosis -Resolved Leukocytosis -Infectious workup as above -Continue antibiotics -White count remains markedly elevated -Continue to watch for trend Toxic/metabolic encephalopathy -Resolved -Patient off Precedex -Likely related to acute infection in the above Supratherapeutic INR -INR 3.8 on admission--> currently 3.3 -Goal is 2.5-3.5 -Once INR is less than 2.5 we will start heparin drip -Hold Coumadin and repeat INR tomorrow Anemia -Patient with recent lower GI bleeding -Colonoscopy on 04/27/2023 showed patchy moderate mucosal changes in the transverse colon, hepatic flexure, ascending colon, cecum, appendiceal orifice, and ileocecal valve secondary to colitis -Biopsy showed focal acute enteritis in the ileum, focal acute colitis in the cecum, and focal acute colitis from random biopsy in the colon -EGD was overtly unremarkable -Per GI recent note from 05/25/2023 there is concern for Crohn's disease and the patient was started on methylprednisolone at discharge and it was recommended that he have an outpatient follow-up with MRI enterography and repeat colonoscopy as an outpatient -Hemoglobin is overall relatively stable -Continue to trend with CBC and repeat tomorrow -Continue IV Protonix 40 twice daily -Patient will be placed on Solu-Cortef due to hypotension and prednisone was stopped -Patient does have history of esophageal are so an 04/23/2021--> EGD done at [facility] [place] in [place] and he had an esophageal ulcer distally that was clipped -May need GI intervention depending on blood counts and clinical status Anterior urethral stricture -Status post dilation and Cortez catheter placement by urology -Okay to remove Cortez once catheter is no longer required -Will have patient follow-up as an outpatient with urology after discharge History of aortic valve disease -Remote history of aortic valve 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 -Subsequently, status post a modified Bentyl/Ross procedure using a 25 mm [place] Hemashield composite graft (2001) for revision -Aortic valve disease has been stable -Echocardiogram is pending History of pulmonic valve replacement -Done as part of his aortic valve surgery in 1996 -Has been stable Hyperlipidemia -Patient is not on any statins -He is trying to make adjustments to his diet -Continued outpatient follow-up History of anxiety/depression/PTSD/insomnia -If patient is able to take oral medication we will continue duloxetine, Ativan, and melatonin DVT prophylaxis -Patient is fully anticoagulated with Coumadin and INR remains therapeutic CODE STATUS -Full code Charges/Coding Visit Charges Inpatient E&M: 85882 Subs Hosp L2
[2023-06-03] MEDS: TITRATION PARAMETER CHANGE 1 EACH IV (15:09)
[2023-06-03] MEDS: Midodrine HCl 5 MG Tablet 10 MG PO ×2 (15:09→19:47)
[2023-06-03] MEDS: Vancomycin Trough/Random Due 1 LAB MC (15:17)
[2023-06-03] MEDS: WARFARIN 5.5 MG PO (18:15)
[2023-06-03 18:40] LABS: Vancomycin, Trough Level 21.2 ug/mL (5.0-15.0)
--- NOTE | 2023-06-03 18:49 | PCM.RX.CS ---
Consult Antibiotic Management Pharmacy has been consulted to manage selected antibiotic: Vancomycin Type of Intervention Type of Consult: Follow-up Prior Doses of Antibiotics Prior Doses of Antibiotics Received/Current Regimen: current dose is vanc 1250mg IV q12h Labs Labs: Sodium 139 mmol/L (136-145) 06/03/23 04:10 Potassium 4.2 mmol/L (3.5-5.1) 06/03/23 04:10 Chloride 110 mmol/L (98-107) H 06/03/23 04:10 Carbon Dioxide 23.0 mmol/L (21.0-32.0) 06/03/23 04:10 Anion Gap 6 (5-15) 06/03/23 04:10 BUN 25 mg/dL (7-18) H 06/03/23 04:10 Creatinine 1.13 mg/dL (0.70-1.30) 06/03/23 04:10 Est GFR (MDRD) Af Amer 81 mL/min (>60) 06/03/23 04:10 Est GFR (MDRD) Non-Af 67 mL/min (>60) 06/03/23 04:10 BUN/Creatinine Ratio 22.1 RATIO (10-20) H 06/03/23 04:10 Glucose 166 mg/dL (74-106) H 06/03/23 04:10 Vancomycin Trough 21.2 ug/mL (5.0-15.0) H 06/03/23 18:10 Microbiology Microbiology: Microbiology 06/02/23 01:19 Urine, Clean Catch Urine Culture - Preliminary Staphylococcus aureus 06/02/23 01:30 Blood Culture (Wb) - Left Forearm Blood Culture - Preliminary Staphylococcus aureus 06/02/23 00:45 Blood Culture (Wb) - Anticubital Right Bacteria Detection (PCR) - Final Staphylococcus aureus 06/02/23 00:45 Blood Culture (Wb) - Anticubital Right Blood Culture - Preliminary Staphylococcus aureus 06/02/23 13:30 Stool C. difficile GDH Antigen & Toxins - Final 06/02/23 13:30 Stool Clostridioides difficile (PCR) - Final 06/02/23 09:05 Mucosa - Nose Respiratory Panel (PCR) - Final 06/02/23 00:45 Mucosa - Nose SARS-CoV-2, Influenza & RSV (PCR) - Final Dosing Weight Weight used for dosin.4 kg Estimated Creatinine Clearance Estimated Creatinine Clearance: 66 ml/min Goal Trough Goal Trough: 15-20 mcg/mL Pharmacy Plan for Drug Dosing Pharmacy Plan for Drug Dosing: The vanc trough drawn at 18:10 (approx 12.5 hrs after the previous dose) was 21.2. This is above goal so will hold current dose. Will order a random level to be drawn tomorrow morning with AM labs. Further dosing will be reevaluated from there. The patient's CrCl of 66 ml/min was calculated using an adjusted body weight. Pharmacy Service will continue to monitor and adjust dosing as required. Follow-Up Labs Follow-Up Labs: Trough: Vancomycin (random) Date/Time Labs Ordered Labs to be done on [date and time ordered]: 06/04/23 0600
[2023-06-04] VITALS (11 sets, daily range): BP systolic 108–136; BP diastolic 56–80; PULSE 78–90; RESP 12–20; TEMP 36.5–37.4; O2SAT 93–97; BMI 30.4
--- NOTE | 2023-06-04 05:51 | PCM.PN.INT ---
Assessment & Plan Assessment/Plan (1) Fever of unknown origin: PLAN: Plan RECOMMENDATIONS: 1. Continue current antimicrobials while awaiting infectious diseases consultation. 2. Continue PPI therapy. 3. Okay to wean stress dose steroids. The patient will be transitioned to twice daily dosing today. 4. Continue amiodarone. 5. Okay to discontinue Precedex. 6. Encourage incentive spirometer use and mobilize patient as tolerated. 7. The patient is medically stable for transfer out of the intensive care unit. 8. Will sign off from a critical care perspective. Please call with any additional questions. IMPRESSIONS: 1. Sepsis/fever of unknown origin The patient presented to the hospital with fevers and rigors. The patient appears to have staph bacteremia based upon early blood culture results. The patient did present with evidence of lactic acidemia and altered mental status. The patient was initially hemodynamically stable and therefore only received a small amount of supplemental IV fluid hydration. However, following transfer to the ICU, the patient's hemodynamic status became more tenuous. Ultimately, the patient required initiation of vasopressor support. With supportive care, including antimicrobials, the patient has been weaned from vasopressor support. Infectious diseases consultation is pending to assist with management of his antimicrobials. Ultimately, the patient may require MARIAA, if bacteremia does not clear. Plan to wean stress dose steroids at this time given hemodynamic stability. 2. History of aortic valve replacement/therapeutically anticoagulated on Coumadin/paroxysmal atrial fibrillation Clinically stable at this time. Continue amiodarone and continue to monitor INR daily. Once the patient becomes subtherapeutic, will initiate a heparin infusion. 3. Recent GI bleed with concern for inflammatory bowel disease The patient is currently being followed by Dr. Perez of gastroenterology. The patient has been on outpatient prednisone therapy, which I suspect has been for at least the last month. Accordingly, given his acute presentation, the patient was started on stress dose steroids. The patient will be continued on twice daily PPI therapy. Hemoglobin remains stable. 4. History of hypertension/hyperlipidemia/right bundle branch block/PTSD/anxiety Complicates care, management, recovery and prognosis. Continue to hold home antihypertensives. This note was generated with [employer] software. It may contain incorrect words, spelling, and punctuation that were not noted in checking the note before signing. Subjective Subjective The patient was seen and examined at the bedside this morning. Events from the last 24 hours have been reviewed. The patient is currently afebrile, hemodynamically stable and maintaining appropriate oxygen saturations on room air. The patient was able to be weaned off of Levophed yesterday evening. He is currently documented to be overall net +6 L for the hospitalization. The patient's main concern this morning seems to surround his chronic mental health issues and his unhappiness with his current psychiatry provider. Objective Data Objective Data The patient's most recent lab work, culture data and imaging studies have all been personally reviewed. Surface echocardiogram demonstrated normal LV size with an ejection fraction of 40 to 45%. Mild global LV systolic dysfunction was noted. The RV was moderately dilated with moderate global RV systolic dysfunction along with biatrial dilatation and moderate pulmonary hypertension noted. Preliminary blood cultures dated June 02 were positive for Staph aureus. Vital Signs: Vital Signs Temp Pulse Resp BP Pulse Ox O2 Del Method O2 Flow Rate 99.3 F H 84 12 127/60 H 94 Room Air 0 06/04/23 00:00 06/04/23 05:00 06/04/23 05:00 06/04/23 05:00 06/04/23 05:00 06/04/23 05:00 06/03/23 00:00 Oxygen Flow Rate (L/min) 0 Oxygen Delivery Method Room Air Weight: 221 lb 5.506 oz Body Mass Index (BMI) 29.9 Intake & Output: Intake and Output for Last 24 Hours 06/02/23 06/03/23 06/04/23 23:59 23:59 23:59 Intake Total 6194.08 / 6222.74 1579.97 / 1579.97 50 / 50 Output Total 600 / 1000 1200 / 1200 Balance 5594.08 / 5222.74 379.97 / 379.97 50 / 50 Lab / Micro Data Attestation: I reviewed the patient's lab results. 06/04/23 06:05 06/04/23 06:05 Labs: Laboratory Results - last 24 hr 06/03/23 18:10: Vancomycin Trough 21.2 H Micro: Microbiology 06/02/23 01:19 Urine, Clean Catch Urine Culture - Preliminary Staphylococcus aureus 06/02/23 01:30 Blood Culture (Wb) - Left Forearm Blood Culture - Preliminary Staphylococcus aureus 06/02/23 00:45 Blood Culture (Wb) - Anticubital Right Bacteria Detection (PCR) - Final Staphylococcus aureus 06/02/23 00:45 Blood Culture (Wb) - Anticubital Right Blood Culture - Preliminary Staphylococcus aureus 06/02/23 13:30 Stool C. difficile GDH Antigen & Toxins - Final 06/02/23 13:30 Stool Clostridioides difficile (PCR) - Final 06/02/23 09:05 Mucosa - Nose Respiratory Panel (PCR) - Final 06/02/23 00:45 Mucosa - Nose SARS-CoV-2, Influenza & RSV (PCR) - Final Radiography Diagnostic Testing: Radiology Impression Echocardiogram 06/02/23 04:43 Interpretation Summary The estimated ejection fraction is 40-45% %. Mild global left ventricular systolic dysfunction. There is mild global hypokinesis of the left ventricle. There is a mechanical prosthetic aortic valve in place. It was poorly visualized however there was no significant regurgitation or stenosis noted. Mild-Moderate (1-2+) mitral valve insufficiency. Ordering Physician: Rigoberto Romero Referring Physician: Donaldo Larson Performed By: Haley Austin, LOC, RVT Chest X-Ray 06/02/23 08:48 IMPRESSION: Satisfactory central line placement without complication. Electronically Signed: Suleiman Park MD at 11:36 EST , Physical Exam Const alert and no apparent distress General Appearance: cooperative HEENT normocephalic and head/scalp atraumatic Eyes PERRL and EOMs intact bilaterally Neck supple General: trachea midline and CVC in place Chest inspection of chest normal Resp normal respiratory effort Auscultation: Negative for rales, rhonchi or wheezes Cardio S1 normal heart sound and S2 normal heart sound Cardio Narrative: Audible click present Rhythm: abnormal rhythm Heart Sounds: murmur GI normal to inspection, nondistended, normoactive bowel sounds Extremity General Extremity: edema; Negative for clubbing Skin no rashes or lesions noted Neuro CN's II-XII intact bilaterally, moves all extremities and no focal motor deficits Psych cooperative Mood & Affect: anxious Charges/Coding Visit Charges Inpatient E&M: 05320 Subs Hosp L3
[2023-06-04] MEDS: Piperacil/Tazobactam 3.375 GM in 0.9% Normal Saline (50mL MB+) 50 ML IV (06:02)
[2023-06-04] MEDS: Vancomycin Trough/Random Due 1 LAB MC (06:02)
[2023-06-04] MEDS: Hydrocortisone Sod Succinate 100 MG/2 ML Vial 50 MG IV ×3 (06:02→21:59)
[2023-06-04 06:28] LABS: Absolute Lymphocyte Count 0.39 X10^3/uL (0.83-4.51); Absolute Neutrophil Count 25.1 X10^3/uL (2.0-7.7); Basophil# 0.05 X10^3/uL; Basophil% 0.2 % (0-1); Hematocrit 33.6 % (40-54); Hemoglobin 10.5 g/dL (13.0-16.5); Lymphocyte # 0.39 X10^3/ul (0.83-4.51); Lymphocyte % 1.4 % (19-41); Mean Corp Hgb Conc 31.3 g/dL (32-36); Mean Corpuscular Hgb 27.9 pg (27.0-32.0); Mean Corpuscular Volume 89.4 fL (80-94); Mean Platelet Vol. 10.4 fl (6.2-12.0); Monocyte# 1.24 X10^3/uL; Monocyte% 4.6 % (0-10); NRBC Flagged by Analyzer 0 % (0-5); Neutrophil # 25.08 X10^3/uL (2.7-7.7); Neutrophil % 92.4 % (47-70); POSITIVE DIFFERENTIAL YES; POSITIVE MORPHOLOGY YES; Platelet Count 236 K/mm3 (150-450); RBC Distribution Width CV 20.1 % (11.6-14.6); RBC Distribution Width SD 65.9 fl (35.1-43.9); Red Blood Count 3.76 M/mm3 (4.6-6.2); White Blood Count 27.2 K/mm3 (4.4-11.0)
[2023-06-04 06:48] LABS: Prothrombin Time (Protime)PT. 31.4 SECONDS (11.7-14.9)
[2023-06-04 07:02] LABS: Differential Indicated SCAN CRITERIA MET
[2023-06-04 07:13] LABS: ALB/GLOB Ratio 0.6 RATIO (0.9-2.4); AST(SGOT) 38 U/L (15-37); Alanine Aminotransfer ALT/SGPT 60 U/L (16-61); Albumin, Serum 2.4 g/dL (3.2-5.0); Alkaline Phosphatase 100 U/L (45-117); Anion Gap 4 (5-15); BUN 26 mg/dL (7-18); BUN/Creat Ratio 23.2 RATIO (10-20); Calcium,Total 8.4 mg/dL (8.5-10.1); Chloride 111 mmol/L (98-107); Creatinine, Serum 1.12 mg/dL (0.70-1.30); EST Glomerular Filtration Rate 67 mL/min (>60); Est Glom Filt Rate - Afr Amer 82 mL/min (>60); Estimated Creatinine Clearance 59.66 ml/min; Globulin 3.8 g/dL (2.2-4.2); Glucose 125 mg/dL (74-106); Potassium 3.8 mmol/L (3.5-5.1); Protein, Total 6.2 g/dL (6.4-8.2); Sodium Level 140 mmol/L (136-145)
[2023-06-04 07:20] LABS: Vancomycin, Random Level 14.5 ug/mL (0.0-15.0)
[2023-06-04] MEDS: Midodrine HCl 5 MG Tablet 10 MG PO ×3 (07:51→16:41)
[2023-06-04 07:54] LABS: Anisocytosis 2+; Differential Comment SCANNED
--- NOTE | 2023-06-04 08:13 | PCM.RX.CS ---
Consult Antibiotic Management Pharmacy has been consulted to manage selected antibiotic: Vancomycin Type of Intervention Type of Consult: Follow-up Suspected Infection Suspected Infection: Bacteremia and Other (UTI) Labs Labs: Sodium 140 mmol/L (136-145) 06/04/23 06:05 Potassium 3.8 mmol/L (3.5-5.1) 06/04/23 06:05 Chloride 111 mmol/L (98-107) H 06/04/23 06:05 Carbon Dioxide 25.0 mmol/L (21.0-32.0) 06/04/23 06:05 Anion Gap 4 (5-15) L 06/04/23 06:05 BUN 26 mg/dL (7-18) H 06/04/23 06:05 Creatinine 1.12 mg/dL (0.70-1.30) 06/04/23 06:05 Est GFR (MDRD) Af Amer 82 mL/min (>60) 06/04/23 06:05 Est GFR (MDRD) Non-Af 67 mL/min (>60) 06/04/23 06:05 BUN/Creatinine Ratio 23.2 RATIO (10-20) H 06/04/23 06:05 Glucose 125 mg/dL (74-106) H 06/04/23 06:05 Vancomycin Trough 21.2 ug/mL (5.0-15.0) H 06/03/23 18:10 Random Vancomycin 14.5 ug/mL (0.0-15.0) 06/04/23 06:05 Microbiology Microbiology: Microbiology 06/02/23 01:19 Urine, Clean Catch Urine Culture - Final Staphylococcus aureus 06/02/23 00:45 Blood Culture (Wb) - Anticubital Right Bacteria Detection (PCR) - Final Staphylococcus aureus 06/02/23 00:45 Blood Culture (Wb) - Anticubital Right Blood Culture - Preliminary Staphylococcus aureus 06/02/23 01:30 Blood Culture (Wb) - Left Forearm Blood Culture - Preliminary Staphylococcus aureus 06/02/23 13:30 Stool C. difficile GDH Antigen & Toxins - Final 06/02/23 13:30 Stool Clostridioides difficile (PCR) - Final 06/02/23 09:05 Mucosa - Nose Respiratory Panel (PCR) - Final 06/02/23 00:45 Mucosa - Nose SARS-CoV-2, Influenza & RSV (PCR) - Final Pharmacy Plan for Drug Dosing Pharmacy Plan for Drug Dosing: VANCOMYCIN LEVEL RECEIVED Current Vancomycin Dose: HOLD (PREVIOUS 1250MG Q12) Number of Doses Received: 3 Vancomycin Level: 14.5 MG/DL Hours Since Last Dose: 24.5 Renal Function: SCR 1.12 MG/DL, CRCL 67 ML/MIN Renal Function Trend: IMPROVING Lab/Micro: MSSA IN URINE CX, PRELIMINARY STAPH IN BLOOD CX Vancomycin Plan/Comments: NOW THAT RANDOM LEVEL IS SUBTHERAPEUTIC (GOAL 15-20MG/DL), DOSE CHANGED TO 1000MG Q12 WITH A LEVEL PRIOR TO 4TH DOSE. Pending Level: 06/05/23 @ 1930 Pharmacy Service will continue to monitor and adjust dosing as required.
--- NOTE | 2023-06-04 08:23 | PCM.PN.HOSP ---
Reason for Visit Reason for Visit: Fever Subjective Subjective No issues overnight other than he slept poorly. He states he has pretty significant medical PTSD and has problems why he is hospitalized. He follows with psychiatry but states that not all effective. He sees them 4 times a year. 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 Is feeling fine otherwise. We discussed his need for clearance cultures and possibly for MARIAA depending on repeat blood cultures. I did tell him we would be able to transfer him out of the ICU. Objective Data Objective Data Vital Signs: Vital Signs Temp Pulse Resp BP Pulse Ox O2 Del Method O2 Flow Rate 98.9 F 84 14 128/80 H 97 Room Air 0 06/04/23 06:00 06/04/23 07:00 06/04/23 07:00 06/04/23 07:00 06/04/23 07:00 06/04/23 07:57 06/03/23 00:00 Oxygen Flow Rate (L/min) 0 Oxygen Delivery Method Room Air Weight: 101.9 kg Body Mass Index (BMI) 30.4 Intake & Output: Intake and Output for Last 24 Hours 06/02/23 06/03/23 06/04/23 23:59 23:59 23:59 Intake Total 6194.08 / 6222.74 1579.97 / 1579.97 50 / 50 Output Total 600 / 1000 1200 / 1200 650 / 650 Balance 5594.08 / 5222.74 379.97 / 379.97 -600 / -600 Lab / Micro Data 06/04/23 06:05 06/04/23 06:05 Labs: Laboratory Results - last 24 hr 06/03/23 18:10: Vancomycin Trough 21.2 H 06/04/23 06:05: WBC 27.2 H, RBC 3.76 L, Hgb 10.5 L, Hct 33.6 L, MCV 89.4, MCH 27.9, MCHC 31.3 L, RDW Std Deviation 65.9 H, RDW Coeff of Rich 20.1 H, Plt Count 236, MPV 10.4, Immature Gran % (Auto) 1.400 H, Neut % (Auto) 92.4 H, Lymph % (Auto) 1.4 L, Bartholomew % (Auto) 4.6, Eos % (Auto) 0.0, Baso % (Auto) 0.2, Absolute Neuts (auto) 25.1 H, Absolute Lymphs (auto) 0.39 L, Nucleated RBC % 0, Differential Comment SCANNED, Anisocytosis 2+, PT 31.4 H, INR 3.0, Sodium 140, Potassium 3.8, Chloride 111 H, Carbon Dioxide 25.0, Anion Gap 4 L, BUN 26 H, Creatinine 1.12, Estim Creat Clear Calc 59.66, Est GFR (MDRD) Af Amer 82, Est GFR (MDRD) Non-Af 67, BUN/Creatinine Ratio 23.2 H, Glucose 125 H, Calcium 8.4 L, Total Bilirubin 0.80, AST 38 H, ALT 60, Alkaline Phosphatase 100, Total Protein 6.2 L, Albumin 2.4 L, Globulin 3.8, Albumin/Globulin Ratio 0.6 L, Random Vancomycin 14.5 Micro: Microbiology 06/02/23 01:19 Urine, Clean Catch Urine Culture - Final Staphylococcus aureus 06/02/23 00:45 Blood Culture (Wb) - Anticubital Right Bacteria Detection (PCR) - Final Staphylococcus aureus 06/02/23 00:45 Blood Culture (Wb) - Anticubital Right Blood Culture - Preliminary Staphylococcus aureus 06/02/23 01:30 Blood Culture (Wb) - Left Forearm Blood Culture - Preliminary Staphylococcus aureus 06/02/23 13:30 Stool C. difficile GDH Antigen & Toxins - Final 06/02/23 13:30 Stool Clostridioides difficile (PCR) - Final 06/02/23 09:05 Mucosa - Nose Respiratory Panel (PCR) - Final 06/02/23 00:45 Mucosa - Nose SARS-CoV-2, Influenza & RSV (PCR) - Final Physical Exam Const alert, oriented x3, no apparent distress and well nourished; Negative for healthy appearing Constitutional Narrative: elderly male, obese, sitting up in a chair at the bedside, very talkative but conversing normally, eating breakfast and watching television, appears comfortable, currently nontoxic General Appearance: cooperative and comfortable HEENT normocephalic and head/scalp atraumatic HEENT Narrative: Mild hearing loss, Mallampati is 2-3, no thrush, dentition is fair Resp normal respiratory effort, normal air movement, no retractions, no use of accessory muscles and clear to auscultation bilaterally Auscultation: Negative for rales, rhonchi or wheezes Cardio regular rate, S1 normal heart sound, S2 normal heart sound, no murmurs, no rub, no gallops and no clicks Cardio Narrative: Rhythm is irregularly irregular but rate is currently controlled GI normal to inspection, nondistended, normoactive bowel sounds, soft to palpation and non-tender Extremity no clubbing, cyanosis or edema Extremity Narrative: Pedal pulses are 2+, SCDs is in place Skin Skin Narrative: Right IJ-clean and dry with dressing intact Neuro oriented x3, moves all extremities and no focal motor deficits Speech: speech normal Psych affect normal Psych Narrative: Interacts appropriately, very pleasant, mildly anxious Mood & Affect: anxious Assessment & Plan Assessment/Plan (1) Sepsis: (2) Paroxysmal atrial fibrillation with RVR: (3) Lactic acidosis: (4) Leukocytosis: (5) Anemia: QUALIFIERS: Anemia type: iron deficiency Iron deficiency anemia type: chronic blood loss Qualified Code(s): D50.0 - Iron deficiency anemia secondary to blood loss (chronic) (6) Elevated serum creatinine: (7) Toxic metabolic encephalopathy: (8) Cardiomyopathy: (9) Urethral stricture: PLAN: Plan Septic shock secondary to MSSA bacteremia and UTI -Patient was not fluid responsive and was started on pressors -Levophed off -Stress dose steroids weaned to 50 twice daily -Continue midodrine 10 mg 3 times daily and wean tomorrow if blood pressures remain stable -Urine cultures positive for Staph aureus -Blood cultures x 2 are positive for Staph aureus -Clearance cultures were drawn on 06/03/2023 and still pending -TTE did not show any valvular vegetations however may require MARIAA -Await repeat cultures for clearance -If MARIAA is desired will likely proceed with on Sunday or Sunday depending on INR -Will narrow antibiotics as this is sensitive Staph aureus and discontinue vancomycin and transition to Ancef 2 g every 8 hours -Consult ID-anticipate evaluation on Sunday -Critical care medicine following-appreciate input -Discussed case with Dr. Betst and from his standpoint okay to transfer out of ICU A-fib with RVR -Rates remain controlled however still in A-fib -Patient has a history of paroxysmal atrial fibrillation and at baseline is on metoprolol 50 twice daily and Coumadin -Has had issues with paroxysmal atrial fibrillation that have required defibrillation and EP evaluation with previous acute hospitalizations -Continue to hold beta-edith but may be able to start in the next 24 hours -Continue to hold anticoagulation and will plan to transition to heparin drip once INR is less than 2.5 in preparation for MARIAA -Current INR is 3.0 -Continue amiodarone 200 mg daily -Echocardiogram shows a rest EF at 40 to 45%, mild global hypokinesis, mechanical aortic valve in place with no significant regurgitation or stenosis, moderately dilated and reduced RV systolic function, moderate pulmonary hypertension -Cardiology following-appreciate input Cardiomyopathy -Currently unclear if ischemic or nonischemic however overall suspect nonischemic -Echo as above -May be related to sepsis -Once able, will start appropriate goal-directed therapy and patient will need outpatient follow-up -Ischemic evaluation with stress test recommended once patient is stable prior to discharge -Will consider in the next 24 hours -Cardiology is following-appreciate input Elevated serum creatinine -Resolved from elevation to 1.3 on admission -Serum creatinine appears to run between 0.9 and 1.1 -Current serum creatinine is 1.12 Leukocytosis -Infectious workup as above -Continue antibiotics but transition to Ancef 2 g every 6 8 hours for MSSA bacteremia and UTI -White count remains markedly elevated but is on stress dose steroids at this time -Hopeful that we will see a downtrend now with dose reduction of steroids -Continue to watch for trend Toxic/metabolic encephalopathy -Resolved -Patient off Precedex -Likely related to acute infection in the above Supratherapeutic INR -INR 3.8 on admission--> currently 3.0 -Goal is 2.5-3.5 -Once INR is less than 2.5 we will start heparin drip -Hold Coumadin and repeat INR tomorrow Anemia -Patient with recent lower GI bleeding -Colonoscopy on 04/27/2023 showed patchy moderate mucosal changes in the transverse colon, hepatic flexure, ascending colon, cecum, appendiceal orifice, and ileocecal valve secondary to colitis -Biopsy showed focal acute enteritis in the ileum, focal acute colitis in the cecum, and focal acute colitis from random biopsy in the colon -EGD was overtly unremarkable -Per GI recent note from 05/25/2023 there is concern for Crohn's disease and the patient was started on methylprednisolone at discharge and it was recommended that he have an outpatient follow-up with MRI enterography and repeat colonoscopy as an outpatient -Hemoglobin down to 10.5 however this appears to be where he was at about the time of admission or just prior -Will continue to monitor and if any further significant downtrend may need to have GI investigate further with EGD/colon -Continue IV Protonix 40 twice daily -Patient will be placed on Solu-Cortef due to hypotension and prednisone was stopped -Restart prednisone once Solu-Cortef has been weaned appropriately -Patient does have history of esophageal are so an 04/23/2021--> EGD done at [facility] in [place] and he had an esophageal ulcer distally that was clipped Anterior urethral stricture -Status post dilation and Cortez catheter placement by urology -Okay to remove Cortez once catheter is no longer required -Will plan on trial of removal tomorrow -Will have patient follow-up as an outpatient with urology after discharge History of aortic valve disease -Remote history of aortic valve 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 -Subsequently, status post a modified Bentyl/Ross procedure using a 25 mm [place] Hemashield composite graft (2001) for revision -Aortic valve disease has been stable -Echocardiogram shows a stable aortic valve History of pulmonic valve replacement -Done as part of his aortic valve surgery in 1996 -Has been stable Hyperlipidemia -Patient is not on any statins -He is trying to make adjustments to his diet -Continued outpatient follow-up History of anxiety/depression/PTSD/insomnia -If patient is able to take oral medication we will continue duloxetine, Ativan, and melatonin DVT prophylaxis -Patient is fully anticoagulated with Coumadin and INR remains therapeutic CODE STATUS -Full code Charges/Coding Visit Charges Inpatient E&M: 14668 Subs Hosp L2
[2023-06-04] MEDS: Amiodarone 200 MG Tablet PO (09:43)
[2023-06-04] MEDS: DULoxetine Hcl 60 MG Capsule PO (09:43)
[2023-06-04] MEDS: Pantoprazole Sodium 40 MG in 0.9% Normal Saline (100mL MB+) 100 ML 330 MG IV ×2 (09:43→22:10)
[2023-06-04] MEDS: LORazepam 0.5 MG Tablet PO ×2 (09:48→21:58)
[2023-06-04] MEDS: Ferrous Sulfate 325 MG Tablet PO (12:41)
[2023-06-04] MEDS: Cefazolin 2 GM in 0.9% Normal Saline (100mL Bag) 100 ML IV ×2 (12:41→22:04)
[2023-06-04] MEDS: WARFARIN 5.5 MG PO (16:43)
[2023-06-04] MEDS: MELATONIN 10 MG TABLET PO (21:59)
[2023-06-04] MEDS: 0.9% Saline Lock 10 ML Syringe IV (22:18)
[2023-06-05 02:48] VITALS: BMI 30.2
[2023-06-05 03:24] VITALS: BP 144/70; PULSE 76; RESP 18; TEMP 36.8; O2SAT 96
[2023-06-05] MEDS: Cefazolin 2 GM in 0.9% Normal Saline (100mL Bag) 100 ML IV ×3 (05:28→21:10)
[2023-06-05 07:07] VITALS: O2SAT 96
[2023-06-05 07:11] LABS: Absolute Lymphocyte Count 0.47 X10^3/uL (0.83-4.51); Absolute Neutrophil Count 16.2 X10^3/uL (2.0-7.7); Basophil# 0.03 X10^3/uL; Basophil% 0.2 % (0-1); Hematocrit 33.2 % (40-54); Hemoglobin 10.4 g/dL (13.0-16.5); Lymphocyte # 0.47 X10^3/ul (0.83-4.51); Lymphocyte % 2.6 % (19-41); Mean Corp Hgb Conc 31.3 g/dL (32-36); Mean Corpuscular Hgb 28.6 pg (27.0-32.0); Mean Corpuscular Volume 91.2 fL (80-94); Mean Platelet Vol. 10.1 fl (6.2-12.0); Monocyte# 1.14 X10^3/uL; Monocyte% 6.3 % (0-10); NRBC Flagged by Analyzer 0 % (0-5); Neutrophil # 16.21 X10^3/uL (2.7-7.7); Neutrophil % 89.7 % (47-70); POSITIVE DIFFERENTIAL YES; POSITIVE MORPHOLOGY YES; Platelet Count 209 K/mm3 (150-450); RBC Distribution Width SD 67.8 fl (35.1-43.9); Red Blood Count 3.64 M/mm3 (4.6-6.2); White Blood Count 18.1 K/mm3 (4.4-11.0)
[2023-06-05 07:12] LABS: Differential Indicated SCAN CRITERIA MET
[2023-06-05 07:29] LABS: Anion Gap 4 (5-15); BUN 24 mg/dL (7-18); BUN/Creat Ratio 22.6 RATIO (10-20); Calcium,Total 8.4 mg/dL (8.5-10.1); Chloride 113 mmol/L (98-107); Creatinine, Serum 1.06 mg/dL (0.70-1.30); EST Glomerular Filtration Rate 72 mL/min (>60); Est Glom Filt Rate - Afr Amer 87 mL/min (>60); Estimated Creatinine Clearance 63.04 ml/min; Glucose 129 mg/dL (74-106); Potassium 3.6 mmol/L (3.5-5.1); Sodium Level 142 mmol/L (136-145)
[2023-06-05 07:39] LABS: Anisocytosis 1+
[2023-06-05 07:53] LABS: Prothrombin Time (Protime)PT. 39.6 SECONDS (11.7-14.9)
[2023-06-05 08:09] VITALS: BP 153/76; PULSE 84; RESP 14; TEMP 36.4; O2SAT 100
[2023-06-05] MEDS: Pantoprazole Sodium 40 MG in 0.9% Normal Saline (100mL MB+) 100 ML 330 MG IV (08:10)
[2023-06-05] MEDS: Amiodarone 200 MG Tablet PO (08:11)
[2023-06-05] MEDS: Hydrocortisone Sod Succinate 100 MG/2 ML Vial 50 MG IV (08:11)
[2023-06-05] MEDS: LORazepam 0.5 MG Tablet PO ×2 (08:11→21:08)
[2023-06-05] MEDS: DULoxetine Hcl 60 MG Capsule PO (08:11)
[2023-06-05] MEDS: Midodrine HCl 5 MG Tablet 10 MG PO ×3 (08:12→17:28)
--- NOTE | 2023-06-05 12:18 | PN.HOSP_ITS ---
Reason for Visit Reason for Visit: Patient states he is feeling very well and anxious to go home when he is ready. Discussed that we are awaiting infectious disease input and repeat blood cultures to see if he is cleared infection. We did discuss again that he may need MARIAA depending on ID input and repeat blood culture results. I told him we would remove his Cortez and he is asking for propofol when we remove his Cortez. I told him that was not safe and he did not need propofol for Cortez discontinuation. Objective Data Objective Data Vital Signs: Vital Signs Temp Pulse Resp BP Pulse Ox O2 Del Method O2 Flow Rate 97.6 F L 84 14 153/76 H 100 Room Air 0 06/05/23 08:09 06/05/23 08:09 06/05/23 08:09 06/05/23 08:09 06/05/23 08:09 06/05/23 09:00 06/03/23 00:00 Oxygen Flow Rate (L/min) 0 Oxygen Delivery Method Room Air Weight: 100.9 kg Body Mass Index (BMI) 30.2 Intake & Output: Intake and Output for Last 24 Hours 06/03/23 06/04/23 06/05/23 23:59 23:59 23:59 Intake Total 1579.97 / 1579.97 540 / 540 220 / 220 Output Total 1200 / 1200 1425 / 1425 500 / 500 Balance 379.97 / 379.97 -885 / -885 -280 / -280 Lab / Micro Data 06/05/23 06:40 06/05/23 06:40 Labs: Laboratory Results - last 24 hr 06/05/23 06:40: WBC 18.1 H, RBC 3.64 L, Hgb 10.4 L, Hct 33.2 L, MCV 91.2, MCH 28.6, MCHC 31.3 L, RDW Std Deviation 67.8 H, RDW Coeff of Rich 20.0 H, Plt Count 209, MPV 10.1, Immature Gran % (Auto) 1.200 H, Neut % (Auto) 89.7 H, Lymph % (Auto) 2.6 L, [place] % (Auto) 6.3, Eos % (Auto) 0.0, Baso % (Auto) 0.2, Absolute Neuts (auto) 16.2 H, Absolute Lymphs (auto) 0.47 L, Nucleated RBC % 0, Differential Comment COMMENT, Anisocytosis 1+, PT 39.6 H, INR 4.0 H*, Sodium 142, Potassium 3.6, Chloride 113 H, Carbon Dioxide 25.0, Anion Gap 4 L, BUN 24 H , Creatinine 1.06, Estim Creat Clear Calc 63.04, Est GFR (MDRD) Af Amer 87, Est GFR (MDRD) Non-Af 72, BUN/Creatinine Ratio 22.6 H, Glucose 129 H, Calcium 8.4 L Micro: Microbiology 06/02/23 01:30 Blood Culture (Wb) - Left Forearm Blood Culture - Final Staphylococcus aureus 06/02/23 00:45 Blood Culture (Wb) - Anticubital Right Bacteria Detection (PCR) - Final Staphylococcus aureus 06/02/23 00:45 Blood Culture (Wb) - Anticubital Right Blood Culture - Final Staphylococcus aureus 06/02/23 01:19 Urine, Clean Catch Urine Culture - Final Staphylococcus aureus 06/02/23 13:30 Stool C. difficile GDH Antigen & Toxins - Final 06/02/23 13:30 Stool Clostridioides difficile (PCR) - Final 06/02/23 09:05 Mucosa - Nose Respiratory Panel (PCR) - Final 06/02/23 00:45 Mucosa - Nose SARS-CoV-2, Influenza & RSV (PCR) - Final Physical Exam Const alert, oriented x3, no apparent distress and well nourished; Negative for healthy appearing Constitutional Narrative: elderly male, obese, sitting up in a chair at the bedside, very talkative but conversing normally, appears comfortable, currently nontoxic General Appearance: cooperative and comfortable HEENT normocephalic, head/scalp atraumatic and moist oral mucous membranes HEENT Narrative: Mallampati 2-3, no thrush Resp normal respiratory effort, normal air movement, no retractions, no use of accessory muscles and clear to auscultation bilaterally Auscultation: Negative for rales, rhonchi or wheezes Cardio regular rate, regular rhythm, S1 normal heart sound, S2 normal heart sound, no murmurs, no rub, no gallops and no clicks Cardio Narrative: Rhythm is irregularly irregular but rate is currently controlled GI normal to inspection, nondistended, normoactive bowel sounds, soft to palpation, non-tender and non-distended Extremity Extremity Narrative: Pedal pulses are 2+, patient with about trace to 1+ bilateral lower extremity edema Neuro oriented x3, moves all extremities and no focal motor deficits Speech: speech normal Psych affect normal Psych Narrative: Interacts appropriately, very pleasant, mildly anxious Mood & Affect: anxious Assessment & Plan Assessment/Plan (1) Sepsis: (2) Paroxysmal atrial fibrillation with RVR: (3) Lactic acidosis: (4) Leukocytosis: (5) Anemia: QUALIFIERS: Anemia type: iron deficiency Iron deficiency anemia type: chronic blood loss Qualified Code(s): D50.0 - Iron deficiency anemia secondary to blood loss (chronic) (6) Elevated serum creatinine: (7) Toxic metabolic encephalopathy: (8) Cardiomyopathy: (9) Urethral stricture: PLAN: Plan Septic shock secondary to MSSA bacteremia and UTI -Resolved -Patient was not fluid responsive and was started on pressors -Stop stress dose steroids -Will continue midodrine today but will wean tomorrow if blood pressures remain elevated -Lasix 20 mg IV push x 1 for lower extremity swelling likely related to fluid resuscitation on admission -Urine cultures positive for Staph aureus -Blood cultures x 2 are positive for Staph aureus -Clearance cultures were drawn on 06/03/2023 and still pending -TTE did not show any valvular vegetations however may require MARIAA -Await repeat cultures for clearance -If MARIAA is desired will likely proceed with on Sunday or Sunday depending on INR -Continue Ancef 2 g every 8 hours -Consult ID-awaiting input A-fib with RVR -Now back in normal sinus rhythm -Patient has a history of paroxysmal atrial fibrillation and at baseline is on metoprolol 50 twice daily and Coumadin -Has had issues with paroxysmal atrial fibrillation that have required defibrillation and EP evaluation with previous acute hospitalizations -Will restart home beta-edith tomorrow if blood pressure stable with discontinuation of stress dose steroids -Continue to hold anticoagulation and will plan to transition to heparin drip once INR is less than 2.5 in preparation for MARIAA -Current INR is 4.0 -Will restart Coumadin once okay with ID if patient does not need MARIAA and INR is 3 5 or less -Continue amiodarone 200 mg daily -Echocardiogram shows a rest EF at 40 to 45%, mild global hypokinesis, mechanical aortic valve in place with no significant regurgitation or stenosis, moderately dilated and reduced RV systolic function, moderate pulmonary hypertension -Cardiology following-appreciate input Cardiomyopathy -Currently unclear if ischemic or nonischemic however overall suspect nonischemic -Echo as above -May be related to sepsis -Once able, will start appropriate goal-directed therapy and patient will need outpatient follow-up -Ischemic evaluation with stress test recommended once patient is stable prior to discharge -Stress test ordered for tomorrow -Cardiology is following-appreciate input Elevated serum creatinine -Resolved from elevation to 1.3 on admission -Serum creatinine appears to run between 0.9 and 1.1 -Current serum creatinine is 1.12 Leukocytosis -Infectious workup as above -Continue antibiotics but transition to Ancef 2 g every 6 8 hours for MSSA bacteremia and UTI -White count is trending down and now down to 18,000 despite steroid use -Continue to watch for trend Supratherapeutic INR -INR 3.8 on admission--> currently 4.0 -Goal is 2.5-3.5 -Once INR is less than 2.5 we will start heparin drip -Hold Coumadin and repeat INR tomorrow Anemia -Patient with recent lower GI bleeding -Colonoscopy on 04/27/2023 showed patchy moderate mucosal changes in the transverse colon, hepatic flexure, ascending colon, cecum, appendiceal orifice, and ileocecal valve secondary to colitis -Biopsy showed focal acute enteritis in the ileum, focal acute colitis in the cecum, and focal acute colitis from random biopsy in the colon -EGD was overtly unremarkable -Per GI recent note from 05/25/2023 there is concern for Crohn's disease and the patient was started on methylprednisolone at discharge and it was recommended that he have an outpatient follow-up with MRI enterography and repeat colonoscopy as an outpatient -Globin is stable -Continue IV Protonix and placed on 40 mg once daily -Patient does have history of esophageal are so an 04/23/2021--> EGD done at [facility] [place] and he had an esophageal ulcer distally that was clipped Anterior urethral stricture -Status post dilation and Cortez catheter placement by urology -Discontinue Cortez today -Start Flomax History of aortic valve disease -Remote history of aortic valve 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 -Subsequently, status post a modified Bentyl/Ross procedure using a 25 mm [place] Hemashield composite graft (2001) for revision -Aortic valve disease has been stable -Echocardiogram shows a stable aortic valve History of pulmonic valve replacement -Done as part of his aortic valve surgery in 1996 -Has been stable Hyperlipidemia -Patient is not on any statins -He is trying to make adjustments to his diet -Continued outpatient follow-up History of anxiety/depression/PTSD/insomnia -If patient is able to take oral medication we will continue duloxetine, Ativan, and melatonin DVT prophylaxis -Patient is fully anticoagulated with Coumadin and INR remains therapeutic CODE STATUS -Full code Charges/Coding Visit Charges Inpatient E&M: 02833 Subs Hosp L2
[2023-06-05 13:36] VITALS: BP 139/91; PULSE 80; RESP 14; TEMP 36.7; O2SAT 99
[2023-06-05] MEDS: Ferrous Sulfate 325 MG Tablet PO (13:41)
[2023-06-05] MEDS: Furosemide 20 MG/2 ML VIAL IV (13:43)
--- NOTE | 2023-06-05 14:20 | ECHOTEE_ITS ---
Reason For Study: MSSA Bacteremia Medication MARIAA probe 6VT-D (SN [id number]) passed with minimal difficulty. No complications were noted. Cetacaine Topical [place] given X3 orally. Versed 4 mg given slow IVP. Performed a rapid injection of agitated mix of 9 cc saline and 1cc air to assess for atrial septal defect. Left Ventricle Normal LV size. Left ventricular systolic function is lower limits of normal. The estimated ejection fraction is 50 %. No regional wall motion abnormalities noted. Right Ventricle Normal RV size. Normal systolic function. Atria Bubble contrast study negative for right to left interatrial shunt. The left atrium is mildly enlarged. No thrombus is detected in the left atrial appendage. The right atrium is mildly enlarged. Mitral Valve Normal mitral valve. Mild (1+) eccentric mitral valve insufficiency. Tricuspid Valve Normal tricuspid valve. Mild tricuspid valve insufficiency. Aortic Valve Aortic valve vegetation(s)/mass of the non coronary cusps. Mass measuring 1.1 cm x 0.7 cm freely mobile. Stable appearing mechanical aortic valve apparatus. Pulmonic Valve The pulmonic valve is not well visualized. Vessels Normal aortic root. Pericardium No pericardial effusion. ECHO/Echo Transesophageal (MARIAA) Interpretation Summary Normal LV size. Left ventricular systolic function is lower limits of normal. The estimated ejection fraction is 50 %. Mild (1+) eccentric mitral valve insufficiency. Mild tricuspid valve insufficiency. Stable appearing mechanical aortic valve apparatus. Aortic valve vegetation(s)/mass of the non coronary cusps. Mass measuring 1.1 cm x 0.7 cm freely mobile consistent with vegetation in the subaortic valvular region Ordering Physician: Kathy Hyman Referring Physician: Donaldo Larson Performed By: Haley Austin, RDCS, RVT
--- NOTE | 2023-06-05 14:20 | PCM.HOSP.N ---
Hospitalist Note Discussed case with ID. They do want MARIAA to be performed. Consult placed for MARIAA to be performed.
--- NOTE | 2023-06-05 14:24 | CON.PCM.ID_ITS ---
Assessment & Plan Assessment/Plan (1) Sepsis: PLAN: MSSA bacteremia in the setting of a patient with prosthetic valve replacement. Would continue cefazolin 2 g IV every 8 hours, recommend diagnostic transesophageal echocardiogram and closely follow the repeat blood culture, surveillance blood culture. HPI Consult Data Date of Consult: 06/05/23 HPI Narrative Reason for Consultation: Bacteremia HPI Narrative: TRAMAINE MAST, is a 78 M who presents complicated cardiac history including 2 open heart surgeries over 20 years ago requiring a mechanical prosthetic aortic valve done at [facility] and apparently history of infective endocarditis at that time. Presents with acute confusion and high fever on 02 June. Admission blood cultures growing MSSA. Currently on cefazolin 2 g IV every 8 hours. Patient clinically improving with no cardiopulmonary distress at this time. Repeat blood culture is pending. No gastrointestinal distress. No skin lesions or rashes. No lindsay arthritic symptoms nor back pain. [facility] Medical History (Updated 06/03/23 @ 13:[address] 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 current use of anticoagulant Nonrheumatic aortic (valve) insufficiency Nonrheumatic pulmonary valve insufficiency Other halfway (current) drug therapy Palpitations Panic disorder Pneumaturia Post traumatic stress disorder Pseudomembranous colitis Pure hypercholesterolemia Scarlet fever Sigmoid diverticulitis Streptococcal endocarditis Home Medications warfarin 5 mg tablet 6.5 mg PO SUMOTUTHFRSA BLOOD THINNER 08/27/22 [History Last Taken 04/24/23] warfarin 1 mg tablet 7.5 mg PO WE BLOOD THINNER 09/01/22 [History Last Taken 04/24/23] duloxetine 60 mg capsule,delayed release 60 mg PO DAILY DEPRESSION 04/25/23 [History Last Taken 04/24/23] ferrous sulfate 325 mg (65 mg iron) tablet (FeroSul) 325 mg PO LUNCH #30 tabs 05/04/23 [Rx Last Taken Unknown] melatonin 10 mg capsule 10 mg PO QHS SLEEP 30 days #0 caps 05/04/23 [Rx Last Taken 04/24/23] prednisone 20 mg tablet 20 mg PO DAILY #30 tabs 05/04/23 [Rx Last Taken Unknown] metoprolol tartrate 50 mg tablet 50 mg PO BID BLOOD PRESSURE #180 TABLETS 05/14/23 [Rx Last Taken Unknown] lorazepam 0.5 mg tablet 0.5 mg PO BID 05/21/23 [History Last Taken Unknown] Allergy/AdvReac Type Severity Reaction Status Date / Time fentanyl Allergy Severe Other Verified 06/01/23 23:59 levofloxacin AdvReac Severe Passed out Verified 06/01/23 23:59 Family History Father CAD (coronary artery disease) Surgical History H/O pulmonic valve replacement History of colon resection History of colonoscopy (~04/2023) History of herniorrhaphy History of mechanical aortic valve replacement Social History Smoking Status: Former smoker how long ago did patient quit smokin years ago alcohol intake: current alcohol intake frequency: holidays/special occasions only Alcohol type: beer details: social caffeine: Yes Type: coffee Number of servings: 1 ROS ROS Narrative As stated in history of present illness others negative Physical Exam Narrative Patient is alert and responsive no peripheral skin lesions lungs are clear heart exam S1-S2 no pathologic murmur appreciated abdomen soft nontender Lab / Micro Data 06/05/23 06:40 06/05/23 06:40 Labs: Laboratory Results - last 24 hr 06/05/23 06:40: WBC 18.1 H, RBC 3.64 L, Hgb 10.4 L, Hct 33.2 L, MCV 91.2, MCH 28.6, MCHC 31.3 L, RDW Std Deviation 67.8 H, RDW Coeff of Rich 20.0 H, Plt Count 209, MPV 10.1, Immature Gran % (Auto) 1.200 H, Neut % (Auto) 89.7 H, Lymph % (Auto) 2.6 L, [place] % (Auto) 6.3, Eos % (Auto) 0.0, Baso % (Auto) 0.2, Absolute Neuts (auto) 16.2 H, Absolute Lymphs (auto) 0.47 L, Nucleated RBC % 0, Differential Comment COMMENT, Anisocytosis 1+, PT 39.6 H, INR 4.0 H*, Sodium 142, Potassium 3.6, Chloride 113 H, Carbon Dioxide 25.0, Anion Gap 4 L, BUN 24 H , Creatinine 1.06, Estim Creat Clear Calc 63.04, Est GFR (MDRD) Af Amer 87, Est GFR (MDRD) Non-Af 72, BUN/Creatinine Ratio 22.6 H, Glucose 129 H, Calcium 8.4 L Micro: Microbiology 06/03/23 04:10 Blood Culture (Wb) - Line Draw Blood Culture - Preliminary No growth in 48 hours. 06/02/23 01:30 Blood Culture (Wb) - Left Forearm Blood Culture - Final Staphylococcus aureus 06/02/23 00:45 Blood Culture (Wb) - Anticubital Right Bacteria Detection (PCR) - Final Staphylococcus aureus 06/02/23 00:45 Blood Culture (Wb) - Anticubital Right Blood Culture - Final Staphylococcus aureus
[2023-06-05] MEDS: Tamsulosin HCl 0.4 MG Capsule 0.400000000000000022 MG PO (17:28)
[2023-06-05 19:43] VITALS: BP 128/65; PULSE 80; RESP 15; TEMP 36.8; O2SAT 99
[2023-06-05 20:02] VITALS: O2SAT 99
[2023-06-05] MEDS: MELATONIN 10 MG TABLET PO (21:08)
[2023-06-05 23:13] VITALS: BMI 30.2
[2023-06-05] MEDS: 0.9% Saline Lock 10 ML Syringe IV (23:49)
[2023-06-06] VITALS (9 sets, daily range): BP systolic 125–153; BP diastolic 67–80; PULSE 88–109; RESP 12–18; TEMP 36.4–36.9; O2SAT 92–98; BMI 30.4
[2023-06-06 05:52] LABS: Absolute Lymphocyte Count 0.78 X10^3/uL (0.83-4.51); Basophil# 0.03 X10^3/uL; Basophil% 0.2 % (0-1); Eosinophil# 0.08 X10^3/uL; Eosinophils% 0.6 % (0-5); Hematocrit 36.4 % (40-54); Hemoglobin 11.3 g/dL (13.0-16.5); Lymphocyte # 0.78 X10^3/ul (0.83-4.51); Lymphocyte % 6.3 % (19-41); Mean Corpuscular Hgb 28.5 pg (27.0-32.0); Mean Corpuscular Volume 91.9 fL (80-94); Mean Platelet Vol. 10.1 fl (6.2-12.0); Monocyte# 1.29 X10^3/uL; Monocyte% 10.4 % (0-10); NRBC Flagged by Analyzer 0 % (0-5); Neutrophil # 9.98 X10^3/uL (2.7-7.7); POSITIVE MORPHOLOGY YES; Platelet Count 209 K/mm3 (150-450); RBC Distribution Width CV 19.5 % (11.6-14.6); RBC Distribution Width SD 66.4 fl (35.1-43.9); Red Blood Count 3.96 M/mm3 (4.6-6.2); White Blood Count 12.4 K/mm3 (4.4-11.0)
[2023-06-06 05:59] LABS: Differential Indicated SCAN CRITERIA MET
[2023-06-06 06:03] LABS: International Normalized Ratio 3.4; Prothrombin Time (Protime)PT. 34.5 SECONDS (11.7-14.9)
[2023-06-06] MEDS: Ketorolac 15 MG/ML Vial IV (06:12)
[2023-06-06] MEDS: Cefazolin 2 GM in 0.9% Normal Saline (100mL Bag) 100 ML IV ×2 (06:17→13:42)
[2023-06-06 06:22] LABS: Differential Comment SCANNED
[2023-06-06 06:23] LABS: Hypochromasia 1+
[2023-06-06 07:13] LABS: Anion Gap 14 (5-15); BUN 18 mg/dL (7-18); BUN/Creat Ratio 17.3 RATIO (10-20); Calcium,Total 5.9 mg/dL (8.5-10.1); Chloride 110 mmol/L (98-107); Creatinine, Serum 1.04 mg/dL (0.70-1.30); EST Glomerular Filtration Rate 73 mL/min (>60); Est Glom Filt Rate - Afr Amer 89 mL/min (>60); Estimated Creatinine Clearance 64.25 ml/min; Glucose 59 mg/dL (74-106); Potassium 3.5 mmol/L (3.5-5.1); Sodium Level 142 mmol/L (136-145)
[2023-06-06 08:48] LABS: ALB/GLOB Ratio 0.6 RATIO (0.9-2.4); AST(SGOT) 23 U/L (15-37); Alanine Aminotransfer ALT/SGPT 39 U/L (16-61); Albumin, Serum 2.5 g/dL (3.2-5.0); Alkaline Phosphatase 103 U/L (45-117); Anion Gap 5 (5-15); BUN 22 mg/dL (7-18); BUN/Creat Ratio 20.6 RATIO (10-20); Calcium,Total 8.5 mg/dL (8.5-10.1); Chloride 111 mmol/L (98-107); Creatinine, Serum 1.07 mg/dL (0.70-1.30); EST Glomerular Filtration Rate 71 mL/min (>60); Est Glom Filt Rate - Afr Amer 86 mL/min (>60); Estimated Creatinine Clearance 62.45 ml/min; Globulin 3.9 g/dL (2.2-4.2); Glucose 94 mg/dL (74-106); Potassium 3.3 mmol/L (3.5-5.1); Protein, Total 6.4 g/dL (6.4-8.2); Sodium Level 142 mmol/L (136-145)
[2023-06-06] MEDS: Amiodarone 200 MG Tablet PO (10:46)
[2023-06-06] MEDS: Ferrous Sulfate 325 MG Tablet PO (13:43)
--- NOTE | 2023-06-06 14:00 | PCM.PN.ID ---
ID ID: Route of nutrition/ use of supplements: [] Nutritional Intake: [] IV Site: [] Cortez Catheter: [] Patient is alert and responsive overall clinically stable. Out of bed to a chair no significant cardiopulmonary distress. Diagnostic transesophageal echocardiogram was done earlier today that shows a valvular vegetation on the prosthetic aortic valve. The valve itself is stable. Most recent blood cultures remain negative. Currently on cefazolin. On exam he is alert responsive no fever. 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 Patient is hemodynamically stable with no cardiopulmonary compromise. Continue cefazolin 2 g IV every 8 hours. Will add gentamicin 60 mg IV every 8 hours. Ideally patient would benefit from rifampin 300 mg p.o. 3 times a day, please have cardiology addressed the need of amiodarone given the potential drug drug interaction with rifampin.
--- NOTE | 2023-06-06 14:57 | PCM.PN.HOSP ---
Reason for Visit Reason for Visit: Fever Subjective Subjective No issues overnight. Patient states he is feeling much better. Anxious to go home. I did discuss with him the findings on his MARIAA he demonstrating a aortic vegetation that measures 1.1 x 0.7 cm and is freely mobile consistent with a vegetation in the subaortic valvular region. I did discuss with him requirement for transfer. He had his surgery done at [facility] and is reluctant but will go back to [facility]. Objective Data Objective Data Vital Signs: Vital Signs Temp Pulse Resp BP Pulse Ox O2 Del Method O2 Flow Rate 97.8 F 94 18 134/70 H 96 Room Air 0 06/06/23 11:00 06/06/23 11:00 06/06/23 11:00 06/06/23 11:00 06/06/23 11:00 06/06/23 11:00 06/03/23 00:00 Oxygen Flow Rate (L/min) 0 Oxygen Delivery Method Room Air Weight: 101.6 kg Body Mass Index (BMI) 30.4 Intake & Output: Intake and Output for Last 24 Hours 06/04/23 06/05/23 06/06/23 23:59 23:59 23:59 Intake Total 540 / 540 880 / 880 220 / 220 Output Total 1425 / 1425 1750 / 1750 625 / 625 Balance -885 / -885 -870 / -870 -405 / -405 Lab / Micro Data 06/06/23 05:22 06/06/23 07:40 Labs: Laboratory Results - last 24 hr 06/06/23 05:22: WBC 12.4 H, RBC 3.96 L, Hgb 11.3 L, Hct 36.4 L, MCV 91.9, MCH 28.5, MCHC 31.0 L, RDW Std Deviation 66.4 H, RDW Coeff of Rich 19.5 H, Plt Count 209, MPV 10.1, Immature Gran % (Auto) 1.500 H, Neut % (Auto) 81.0 H, Lymph % (Auto) 6.3 L, Bee % (Auto) 10.4 H, Eos % (Auto) 0.6, Baso % (Auto) 0.2, Absolute Neuts (auto) 10.0 H, Absolute Lymphs (auto) 0.78 L, Nucleated RBC % 0, Differential Comment SCANNED, Hypochromasia 1+, PT 34.5 H, INR 3.4, Sodium 142, Potassium 3.5, Chloride 110 H, Carbon Dioxide 18.0 L, Anion Gap 14, BUN 18, Creatinine 1.04, Estim Creat Clear Calc 64.25, Est GFR (MDRD) Af Amer 89, Est GFR (MDRD) Non-Af 73, BUN/Creatinine Ratio 17.3, Glucose 59 L, Calcium 5.9 L* 06/06/23 07:40: Sodium 142, Potassium 3.3 L, Chloride 111 H, Carbon Dioxide 26.0, Anion Gap 5, BUN 22 H, Creatinine 1.07, Estim Creat Clear Calc 62.45, Est GFR (MDRD) Af Amer 86, Est GFR (MDRD) Non-Af 71, BUN/Creatinine Ratio 20.6 H, Glucose 94, Calcium 8.5, Total Bilirubin 0.80, AST 23, ALT 39, Alkaline Phosphatase 103, Total Protein 6.4, Albumin 2.5 L, Globulin 3.9, Albumin/Globulin Ratio 0.6 L Micro: Microbiology 06/03/23 04:10 Blood Culture (Wb) - Line Draw Blood Culture - Preliminary No growth in 48 hours. 06/02/23 01:30 Blood Culture (Wb) - Left Forearm Blood Culture - Final Staphylococcus aureus 06/02/23 00:45 Blood Culture (Wb) - Anticubital Right Bacteria Detection (PCR) - Final Staphylococcus aureus 06/02/23 00:45 Blood Culture (Wb) - Anticubital Right Blood Culture - Final Staphylococcus aureus 06/02/23 01:19 Urine, Clean Catch Urine Culture - Final Staphylococcus aureus 06/02/23 13:30 Stool C. difficile GDH Antigen & Toxins - Final 06/02/23 13:30 Stool Clostridioides difficile (PCR) - Final 06/02/23 09:05 Mucosa - Nose Respiratory Panel (PCR) - Final 06/02/23 00:45 Mucosa - Nose SARS-CoV-2, Influenza & RSV (PCR) - Final Radiography Diagnostic Testing: Radiology Impression Transesophageal Echocardiogram 06/05/23 14:20 Interpretation Summary Normal LV size. Left ventricular systolic function is lower limits of normal. The estimated ejection fraction is 50 %. Mild (1+) eccentric mitral valve insufficiency. Mild tricuspid valve insufficiency. Stable appearing mechanical aortic valve apparatus. Aortic valve vegetation(s)/mass of the non coronary cusps. Mass measuring 1.1 cm x 0.7 cm freely mobile consistent with vegetation in the subaortic valvular region Ordering Physician: Kathy Hyman Referring Physician: Donaldo Larson Performed By: Haley Austin, LOC, RVT Physical Exam Const alert, oriented x3, no apparent distress and well nourished; Negative for healthy appearing Constitutional Narrative: elderly male, obese, sitting up in a chair at the bed, very talkative but conversing normally, appears comfortable, nontoxic General Appearance: cooperative and comfortable HEENT normocephalic, head/scalp atraumatic and moist oral mucous membranes HEENT Narrative: Mild hearing loss, Mallampati is 2, no thrush Eyes PERRL and conjunctivae normal Eyes Narrative: No scleral icterus Neck supple Neck Narrative: Trachea midline, no thyroid enlargement Resp normal respiratory effort, normal air movement, no retractions, no use of accessory muscles and clear to auscultation bilaterally Auscultation: Negative for rales, rhonchi or wheezes Cardio regular rate, S1 normal heart sound, S2 normal heart sound, no murmurs, no rub, no gallops and no clicks Cardio Narrative: Rhythm is irregularly irregular but rate is currently controlled GI normal to inspection, nondistended, normoactive bowel sounds, soft to palpation and non-tender Extremity normal to inspection, full ROM, no clubbing, cyanosis or edema and no pedal edema Extremity Narrative: Pedal pulses are 2+, patient with about trace to 1+ bilateral lower extremity edema Skin no rashes or lesions noted, no wounds, skin turgor normal, no jaundice, no petechiae and no mottling Skin Narrative: Right IJ-clean and dry with dressing intact, mild surrounding ecchymosis Neuro oriented x3, moves all extremities and no focal motor deficits Speech: speech normal Psych affect normal Psych Narrative: Interacts appropriately, very pleasant, mildly anxious Mood & Affect: anxious Assessment & Plan Assessment/Plan (1) Sepsis: (2) Paroxysmal atrial fibrillation with RVR: (3) Lactic acidosis: (4) Leukocytosis: (5) Anemia: QUALIFIERS: Anemia type: iron deficiency Iron deficiency anemia type: chronic blood loss Qualified Code(s): D50.0 - Iron deficiency anemia secondary to blood loss (chronic) (6) Elevated serum creatinine: (7) Toxic metabolic encephalopathy: (8) Cardiomyopathy: (9) Urethral stricture: PLAN: Plan Septic shock secondary to MSSA bacteremia and UTI--> source is unclear -Resolved -Patient was not fluid responsive and was started on pressors -Stop midodrine -Lasix 20 mg IV push x 1 again today -Urine cultures positive for Staph aureus with low colony count so I suspect this is seeded from his blood -Blood cultures x 2 are positive for Staph aureus -Clearance cultures were drawn on 06/03/2023 and still pending -MARIAA done today and showed EF of 50% with a stable appearing mechanical aortic valve apparatus and an aortic valve vegetation of the noncoronary cusps measuring 1.1 x 0.7 cm that was freely mobile and consistent with vegetation in the subaortic valvular region -Patient has been transferred to [facility] where his previous surgeries have been for CT surgery evaluation -Continue Ancef 2 g every 8 hours -Gentamicin 60 mg IV every 8 hours was added and may need to consider the addition of rifampin -Will discuss with cardiology and see if they are okay with starting rifampin in conjunction with amiodarone p.o. -ID following-appreciate input A-fib with RVR -In rate controlled A-fib -Patient has a history of paroxysmal atrial fibrillation and at baseline is on metoprolol 50 twice daily and Coumadin -Has had issues with paroxysmal atrial fibrillation that have required defibrillation and EP evaluation with previous acute hospitalizations -Will restart home beta-edith tomorrow if blood pressure stable with discontinuation of stress dose steroids -Continue to hold anticoagulation and will plan to transition to heparin drip once INR is less than 2.5 in preparation for MARIAA -Current INR is 3.4 -Continue to hold Coumadin and once INR is less than 2.5 we will start heparin drip -Continue amiodarone 200 mg daily -Will discuss use of amiodarone in conjunction with rifampin -MARIAA shows valvular vegetation on subaortic area of the aortic valve and an EF of 50% -Cardiology following-appreciate input Cardiomyopathy -Currently unclear if ischemic or nonischemic however overall suspect nonischemic -EF on MARIAA is 50% and has improved since his TTE was done and suspect that the mild depression noted then may have been related to his sepsis -Will plan on restarting metoprolol tomorrow if blood pressure remains stable off stress dose steroids and midodrine -Ischemic evaluation with stress test recommended once patient is stable prior to discharge -Stress test ordered for tomorrow -Cardiology is following-appreciate input Hypokalemia -Potassium 3.3 -Patient was given replacement and will recheck in a.m. -Will check a magnesium level Elevated serum creatinine -Resolved -Serum creatinine appears to run between 0.9 and 1.1 -Current serum creatinine is 1.07 Leukocytosis -Infectious workup as above -Trending down now 12.4 -Continue antibiotics as written for by infectious disease to currently include Ancef and gentamicin with possible addition of rifampin if okay with cardiology -Continue to watch for trend Supratherapeutic INR -INR 3.8 on admission--> currently 3.4 -Goal is 2.5-3.5 per discussion with cardiology -Once INR is less than 2.5 we will start heparin drip -Hold Coumadin and repeat INR tomorrow Anemia -Patient with recent lower GI bleeding -Hemoglobin has remained stable throughout his hospital course at this admission -Colonoscopy on 04/27/2023 showed patchy moderate mucosal changes in the transverse colon, hepatic flexure, ascending colon, cecum, appendiceal orifice, and ileocecal valve secondary to colitis -Biopsy showed focal acute enteritis in the ileum, focal acute colitis in the cecum, and focal acute colitis from random biopsy in the colon -EGD was overtly unremarkable -Per GI recent note from 05/25/2023 there is concern for Crohn's disease and the patient was started on methylprednisolone at discharge and it was recommended that he have an outpatient follow-up with MRI enterography and repeat colonoscopy as an outpatient -Continue Protonix 40 mg once daily -Patient does have history of esophageal are so an 04/23/2021--> [place] [facility] [place] esophageal ulcer distally that was clipped Anterior urethral stricture -Status post dilation and Cortez catheter placement by urology -Cortez removed yesterday and no issues -Continue Flomax History of aortic valve disease -Remote history of aortic valve 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 -Subsequently, status post a modified Bentyl/Ross procedure using a 25 mm [place] Hemashield composite graft (2001) for revision -Patient does have valvular vegetation with current Staph aureus bacteremia (MSSA) and will need evaluation by CT surgery -Patient accepted for transfer to [facility] and currently awaiting bed likely will not have today -Aortic valve disease had been stable prior to admission History of pulmonic valve replacement -Done as part of his aortic valve surgery in 1996 -Has been stable Hyperlipidemia -Patient is not on any statins -He is trying to make adjustments to his diet -Continued outpatient follow-up History of anxiety/depression/PTSD/insomnia -If patient is able to take oral medication we will continue duloxetine, Ativan, and melatonin DVT prophylaxis -Patient is fully anticoagulated with Coumadin and INR remains therapeutic CODE STATUS -Full code Charges/Coding Visit Charges Inpatient E&M: 45416 [facility]
[2023-06-06] MEDS: WATER IVPB (16:00)
[2023-06-06] MEDS: GENTAMICIN IVPB (16:00)
[2023-06-06] MEDS: DEXTROSE 5% IVPB (16:00)
[2023-06-06] MEDS: Furosemide 20 MG/2 ML VIAL IV (16:05)
[2023-06-06] MEDS: 0.9% Saline Lock 10 ML Syringe IV (16:05)
--- NOTE | 2023-06-06 16:05 | DS.PCM_ITS ---
Providers Date of Admission: 06/02/23 Date of Discharge: 06/06/23 Primary Care Physician: Dr. 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 Reason for Consult: fever of unknown origin with febrile seizure EMERGENT Consult: No Notified: Yes Date Notified: 06/02/23 Time Notified: 06:51 Method of Notification: Verbal 06/02/23 11:09 Consult: Urology Routine Consulting Provider: Nabil Tyson Reason for Consult: difficult brown insertion EMERGENT Consult: No Notified: Yes Date Notified: 06/02/23 Time Notified: 11:09 Method of Notification: Verbal 06/03/23 07:27 Consult: Infectious Disease Routine Consulting Provider: Cedrick Willingham Reason for Consult: Bacteremia EMERGENT Consult: No Notified: Yes Date Notified: 06/05/23 Time Notified: 09:14 Method of Notification: Answering Service Reason For Visit: FEVER OF UNKNOWN ORIGIN Diagnosis Discharge Diagnosis (1) Sepsis: Status: Acute Code(s): A41.9 - Sepsis, unspecified organism (2) Paroxysmal atrial fibrillation with RVR: Status: Acute Code(s): I48.0 - Paroxysmal atrial fibrillation (3) Lactic acidosis: Status: Acute Code(s): E87.20 - Acidosis, unspecified (4) Leukocytosis: Status: Acute Code(s): D72.829 - Elevated white blood cell count, unspecified (5) Anemia: Status: Acute Code(s): D64.9 - Anemia, unspecified Qualifiers: Anemia type: iron deficiency Iron deficiency anemia type: chronic blood loss Qualified Code(s): D50.0 - Iron deficiency anemia secondary to blood loss (chronic) (6) Elevated serum creatinine: Status: Acute Code(s): R79.89 - Other specified abnormal findings of blood chemistry (7) Toxic metabolic encephalopathy: Status: Acute Code(s): G92.8 - Other toxic encephalopathy (8) Cardiomyopathy: Status: Acute Code(s): I42.9 - Cardiomyopathy, unspecified (9) Urethral stricture: Status: Acute Code(s): N35.919 - Unspecified urethral stricture, male, unspecified site Plan Septic shock secondary to MSSA bacteremia and UTI--> source is unclear -Resolved -Patient was not fluid responsive and was started on pressors -Stop midodrine -Lasix 20 mg IV push x 1 again today -Urine cultures positive for Staph aureus with low colony count so I suspect this is seeded from his blood -Blood cultures x 2 are positive for Staph aureus -Clearance cultures were drawn on 06/03/2023 and still pending -MARIAA done today and showed EF of 50% with a stable appearing mechanical aortic valve apparatus and an aortic valve vegetation of the noncoronary cusps measuring 1.1 x 0.7 cm that was freely mobile and consistent with vegetation in the subaortic valvular region -Patient has been transferred to [facility] where his previous surgeries have been for CT surgery evaluation -Continue Ancef 2 g every 8 hours -Gentamicin 60 mg IV every 8 hours was added and may need to consider the addition of rifampin -Will discuss with cardiology and see if they are okay with starting rifampin in conjunction with amiodarone p.o. -ID following-appreciate input A-fib with RVR -In rate controlled A-fib -Patient has a history of paroxysmal atrial fibrillation and at baseline is on metoprolol 50 twice daily and Coumadin -Has had issues with paroxysmal atrial fibrillation that have required defibrillation and EP evaluation with previous acute hospitalizations -Will restart home beta-edith tomorrow if blood pressure stable with discontinuation of stress dose steroids -Continue to hold anticoagulation and will plan to transition to heparin drip once INR is less than 2.5 in preparation for MARIAA -Current INR is 3.4 -Continue to hold Coumadin and once INR is less than 2.5 we will start heparin drip -Continue amiodarone 200 mg daily -Will discuss use of amiodarone in conjunction with rifampin -MARIAA shows valvular vegetation on subaortic area of the aortic valve and an EF of 50% -Cardiology following-appreciate input Cardiomyopathy -Currently unclear if ischemic or nonischemic however overall suspect nonischemic -EF on MARIAA is 50% and has improved since his TTE was done and suspect that the mild depression noted then may have been related to his sepsis -Will plan on restarting metoprolol tomorrow if blood pressure remains stable off stress dose steroids and midodrine -Ischemic evaluation with stress test recommended once patient is stable prior to discharge -Stress test ordered for tomorrow -Cardiology is following-appreciate input Hypokalemia -Potassium 3.3 -Patient was given replacement and will recheck in a.m. -Will check a magnesium level Elevated serum creatinine -Resolved -Serum creatinine appears to run between 0.9 and 1.1 -Current serum creatinine is 1.07 Leukocytosis -Infectious workup as above -Trending down now 12.4 -Continue antibiotics as written for by infectious disease to currently include Ancef and gentamicin with possible addition of rifampin if okay with cardiology -Continue to watch for trend Supratherapeutic INR -INR 3.8 on admission--> currently 3.4 -Goal is 2.5-3.5 per discussion with cardiology -Once INR is less than 2.5 we will start heparin drip -Hold Coumadin and repeat INR tomorrow Anemia -Patient with recent lower GI bleeding -Hemoglobin has remained stable throughout his hospital course at this admission -Colonoscopy on 04/27/2023 showed patchy moderate mucosal changes in the transverse colon, hepatic flexure, ascending colon, cecum, appendiceal orifice, and ileocecal valve secondary to colitis -Biopsy showed focal acute enteritis in the ileum, focal acute colitis in the cecum, and focal acute colitis from random biopsy in the colon -EGD was overtly unremarkable -Per GI recent note from 05/25/2023 there is concern for Crohn's disease and the patient was started on methylprednisolone at discharge and it was recommended that he have an outpatient follow-up with MRI enterography and repeat colonoscopy as an outpatient -Continue Protonix 40 mg once daily -Patient does have history of esophageal are so an 04/23/2021--> EGD done at [facility] [place] and he had an esophageal ulcer distally that was clipped Anterior urethral stricture -Status post dilation and Brown catheter placement by urology -Brown removed yesterday and no issues -Continue Flomax History of aortic valve disease -Remote history of aortic valve 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 -Subsequently, status post a modified Bentyl/Ross procedure using a 25 mm [place] Hemashield composite graft (2001) for revision -Patient does have valvular vegetation with current Staph aureus bacteremia (MSSA) and will need evaluation by CT surgery -Patient accepted for transfer to [facility] and currently awaiting bed likely will not have today -Aortic valve disease had been stable prior to admission History of pulmonic valve replacement -Done as part of his aortic valve surgery in 1996 -Has been stable Hyperlipidemia -Patient is not on any statins -He is trying to make adjustments to his diet -Continued outpatient follow-up History of anxiety/depression/PTSD/insomnia -If patient is able to take oral medication we will continue duloxetine, Ativan, and melatonin DVT prophylaxis -Patient is fully anticoagulated with Coumadin and INR remains therapeutic CODE STATUS -Full code Medications at Discharge Home Medications warfarin 5 mg tablet 6.5 mg PO SUMOTUTHFRSA BLOOD THINNER 08/27/22 warfarin 1 mg tablet 7.5 mg PO WE BLOOD THINNER 09/01/22 duloxetine 60 mg capsule,delayed release 60 mg PO DAILY DEPRESSION 04/25/23 ferrous sulfate 325 mg (65 mg iron) tablet (FeroSul) 325 mg PO LUNCH #30 tabs 05/04/23 melatonin 10 mg capsule 10 mg PO QHS SLEEP 30 days #0 caps 05/04/23 prednisone 20 mg tablet 20 mg PO DAILY #30 tabs 05/04/23 metoprolol tartrate 50 mg tablet 50 mg PO BID BLOOD PRESSURE #180 TABLETS 05/14/23 lorazepam 0.5 mg tablet 0.5 mg PO BID 05/21/23 Hospital Course Procedures 2-D Echocardiogram, Central line placement, Transesophageal Echo and - (Chest x- ray) Summary of Care Provided Minutes Spent on Discharge: 45 Hospital Course: Mr. Castro is a 78-year-old white male who presented to the emergency department at [facility] on 06/02/2023 with fever. He was noted to have a very complex past medical history. Patient reported both his girlfriend and her sister had not been feeling well recently either. He developed a fever on the morning of presentation and came to the emergency department for the fever. On presentation, per documentation, he was sitting up comfortably in the bed with no distress and was talkative however had some rambling conversation with tangential thought process. Patient reported that on the morning of presentation he had significant rigors that lasted 10 to 15 minutes and that he took his temperature at that time and was having a fever of anywhere between 101 and 103 on multiple checks. He did not have any other significant plaints at the time of presentation. He noted he had recently been helping his girlfriend move his sister into a nursing facility in [place]. Patient does have a notable history of aortic valve replacement with reconstruction of the right ventricular outflow tract in 1996 with revision composite graft in 2001. He is on Coumadin. He was recently hospitalized here with a GI bleed in early May and a CTA revealed GI bleeding in the right colon/cecum. Colonoscopy was performed and showed patchy moderate mucosal changes in the garcía sverse colon hepatic flexure, ascending colon, cecum and appendiceal orifice secondary to colitis with moderate inflammation in the ileum secondary to ileitis. There was some concern that he had Crohn's disease so he was started on methylprednisolone and also given oral vancomycin for prophylaxis related to C. difficile. He did have recent C. difficile infection and was treated and completion. Vital signs on presentation showed a temperature of 101.2 and his Tmax since admission is 103.1, heart rate was 95, blood pressure 134/70, respiratory rate was 14 and oxygen saturation was 97% on room air. Cultures were obtained and infectious workup was pursued and he was placed on broad- spectrum antibiotics and admitted to the medical floor. Once arriving to the medical floor at 630 on the morning of admission a rapid response team was called after the patient had voiced to a nurse that he was not feeling well. He evidently went unresponsive and was noted to have a heart rate of 180 with a blood pressure 120/67. EKG demonstrated wide-complex tachycardia. The patient does have a chronic right bundle branch block and this was thought to be A-fib with RVR. He was given 150 mg bolus of IV amiodarone and placed on amiodarone drip and transferred to the ICU. He was extremely delirious and arrival to the ICU and was placed on Precedex drip to help with his agitation. Sepsis was iden tified and he had not fluid responsive hypotension and he was required to be placed on Levophed. Critical care medicine and cardiology were consulted. A Brown was attempted to be placed however this was impassable so urology was placed and he was identified to have a stricture that was dilated and a Brown was placed at that time. We were able to remove his Brown and he was having no difficulty urinating prior to discharge. He did have mild troponin elevation likely related to above sepsis however stress test was recommended once he was more medically stable. An echocardiogram was performed on 06/02/2023 at which time his EF was noted to be 40 to 45% showing mild global left ventricular dysfunction and hypokinesis with a normal-appearing mechanical prosthetic aortic valve that was poorly visualized however no significant regurgitation or stenosis was noted. We were able to transition him from IV amiodarone to oral amiodarone 200 mg daily and while he remained in A-fib his rates were very well- controlled. He had been on steroids prior to admission and he was placed on stress dose steroids as well is midodrine to get him off of Levophed. Prior to discharge we were able to wean his stress dose steroids and discontinue his midodrine. Cultures were found positive for Staph aureus. This was identified as MSSA and his IV antibiotics were transitioned to Ancef 2 g every 8 hours initially. Unfortunately, MARIAA was performed on 06/06/2023 and demonstrated for 50% with a stable appearing mechanical aortic valve apparatus but he did have a valvular mass in the subaortic valvular region that measured 1.1 x 0.7 cm. This was freely movable and consistent with a vegetation. I discussed the case with cardiology and given his history he recommended evaluation by CT surgery. Jacinta ent had his recent cardiothoracic surgery done at [facility] and we recommended transfer to the same facility as they had his previous records available there. I called and was able to transfer the patient to [facility] and he was excepted with bed availability on 06/06/2023. ID did add gentamicin to his Ancef and was considering adding rifampin but wanted to discuss case with cardiology first so this had not yet been added. We did hold his Coumadin and his INR at the time of discharge was 3.4. Plan was to transition to heparin drip once his INR was therapeutic in preparation for any possible interventions. Discharge diagnoses: Septic shock MSSA bacteremia MSSA UTI-very low colony counts and suspect bacteremia seeded urine Aortic valve endocarditis A-fib with RVR-rate controlled Cardiomyopathy Hypokalemia-resolved Elevated serum creatinine-resolved Leukocytosis Supratherapeutic INR Anemia-stable History of diffuse colitis-GI following and concerning for Crohn's--> patient on chronic steroids and workup is in process Anterior urethral stricture History of aortic valve disease History of pulmonic valve replacement Hyperlipidemia Anxiety Depression Medical related PTSD Insomnia Physical Exam Const alert, oriented x3, no apparent distress, no limitations and well nourished; Ne gataydee for healthy appearing Constitutional Narrative: elderly male, obese, sitting up in a chair at the bed, very talkative but conversing normally, appears comfortable, nontoxic General Appearance: cooperative, comfortable, well kempt and well developed Orientation / Consciousness: awake, oriented to person, oriented to place and oriented to time Exam Limitations: no limitations Nutritional Appearance: obese HEENT normocephalic, head/scalp atraumatic and moist oral mucous membranes HEENT Narrative: Mild hearing loss, Mallampati is 2-3, no thrush Eyes PERRL, EOMs intact bilaterally and conjunctivae normal Eyes Narrative: No scleral icterus Neck full ROM, no lymphadenopathy and supple Neck Narrative: Trachea midline, no thyroid enlargement Resp normal respiratory effort, normal air movement, no retractions, no use of accessory muscles and clear to auscultation bilaterally Auscultation: Negative for rales, rhonchi or wheezes Cardio regular rate, S1 normal heart sound, S2 normal heart sound, no murmurs, no rub, no gallops and no clicks Cardio Narrative: Rhythm is irregularly irregular but rate is currently controlled GI normal to inspection, nondistended, normoactive bowel sounds, soft to palpation and non-tender Extremity no clubbing, cyanosis or edema Extremity Narrative: Pedal pulses are 2+, patient with about trace to 1+ bilateral lower extremity edema Skin no rashes or lesions noted, no wounds, skin turgor normal, no jaundice, no petechiae and no mottling Skin Narrative: Right IJ-clean and dry with dressing intact, mild surrounding ecchymosis Neuro oriented x3, CN's II-XII intact bilaterally, moves all extremities and no focal motor deficits Speech: speech normal Psych affect normal Psych Narrative: Interacts appropriately, very pleasant, first with current suture Mood & Affect: anxious Weight / BMI Weight Weight: 101.6 kg Body Mass Index (BMI) 30.4 ABG / Lab / Microbiology Data 06/06/23 05:22 06/06/23 07:40 Laboratory: Laboratory Results - last 24 hr 06/06/23 05:22: WBC 12.4 H, RBC 3.96 L, Hgb 11.3 L, Hct 36.4 L, MCV 91.9, MCH 28.5, MCHC 31.0 L, RDW Std Deviation 66.4 H, RDW Coeff of Rich 19.5 H, Plt Count 209, MPV 10.1, Immature Gran % (Auto) 1.500 H, Neut % (Auto) 81.0 H, Lymph % (Auto) 6.3 L, [place] % (Auto) 10.4 H, Eos % (Auto) 0.6, Baso % (Auto) 0.2, Absolute Neuts (auto) 10.0 H, Absolute Lymphs (auto) 0.78 L, Nucleated RBC % 0, Differential Comment SCANNED, Hypochromasia 1+, PT 34.5 H, INR 3.4, Sodium 142, Potassium 3.5, Chloride 110 H, Carbon Dioxide 18.0 L, Anion Gap 14, BUN 18, Creatinine 1.04, Estim Creat Clear Calc 64.25, Est GFR (MDRD) Af Amer 89, Est GFR (MDRD) Non-Af 73, BUN/Creatinine Ratio 17.3, Glucose 59 L, Calcium 5.9 L* 06/06/23 07:40: Sodium 142, Potassium 3.3 L, Chloride 111 H, Carbon Dioxide 26.0, Anion Gap 5, BUN 22 H, Creatinine 1.07, Estim Creat Clear Calc 62.45, Est GFR (MDRD) Af Amer 86, Est GFR (MDRD) Non-Af 71, BUN/Creatinine Ratio 20.6 H, Glucose 94, Calcium 8.5, Total Bilirubin 0.80, AST 23, ALT 39, Alkaline Shelley sphatase 103, Total Protein 6.4, Albumin 2.5 L, Globulin 3.9, Albumin/Globulin Ratio 0.6 L Microbiology: Microbiology 06/03/23 04:10 Blood Culture (Wb) - Line Draw Blood Culture - Preliminary No growth in 48 hours. 06/02/23 01:30 Blood Culture (Wb) - Left Forearm Blood Culture - Final Staphylococcus aureus 06/02/23 00:45 Blood Culture (Wb) - Anticubital Right Bacteria Detection (PCR) - Final Staphylococcus aureus 06/02/23 00:45 Blood Culture (Wb) - Anticubital Right Blood Culture - Final Staphylococcus aureus 06/02/23 01:19 Urine, Clean Catch Urine Culture - Final Staphylococcus aureus 06/02/23 13:30 Stool C. difficile GDH Antigen & Toxins - Final 06/02/23 13:30 Stool Clostridioides difficile (PCR) - Final 06/02/23 09:05 Mucosa - Nose Respiratory Panel (PCR) - Final 06/02/23 00:45 Mucosa - Nose SARS-CoV-2, Influenza & RSV (PCR) - Final Radiography Diagnostic Testing: Radiology Impression Transesophageal Echocardiogram 06/05/23 14:20 Interpretation Summary Normal LV size. Left ventricular systolic function is lower limits of normal. The estimated ejection fraction is 50 %. Mild (1+) eccentric mitral valve insufficiency. Mild tricuspid valve insufficiency. Stable appearing mechanical aortic valve apparatus. Aortic valve vegetation(s)/mass of the non coronary cusps. Mass measuring 1.1 cm x 0.7 cm freely mobile consistent with vegetation in the subaortic valvular region Ordering Physician: Kathy Hyman Referring Physician: Donaldo Larson Performed By: Haley Austin RDCS, RVT Meaningful Use Info Meaningful Use Diagnoses (Choose all that apply): None applicable Discharge Plan Admission Admit Date/Time: 06/02/23 03:46 Primary Reason for Your Visit: Fever Attending Provider: Kathy Hyman Primary Care Provider: Donaldo Larson Consulting Providers: Rigoberto Romero; Ekaterina Aguilar; Nabil Tyson; Cedrick Willingham Discharge Orders/Prescriptions Prescriptions: No Action lorazepam 0.5 mg tablet 0.5 mg PO BID warfarin 5 mg tablet 6.5 mg PO SUMOTUTHFRSA Protocol: Dose Management Condition: Sunday Dose/Route: 6.5 mg Instruction: 6.5 x 1 mg tablets Condition: Sunday Dose/Route: 6.5 mg Instruction: 6.5 x 1 mg tablets Condition: Sunday Dose/Route: 6.5 mg Instruction: 6.5 x 1 mg tablets Condition: Sunday Dose/Route: 8 mg Instruction: 3 x 1 mg tablets, 1 x 5 mg tablet Condition: Dose/Route: 6.5 mg Instruction: 6.5 x 1 mg tablets Condition: Sunday Dose/Route: 6.5 mg Instruction: 6.5 x 1 mg tablets Condition: Sunday Dose/Route: 6.5 mg Instruction: 6.5 x 1 mg tablets Protocol Text: Adjustment Start Date: Sunday05/11/23 INR Value: 2.3 INR Date: 05/11/23 Recheck Date: 05/21/23 duloxetine 60 mg capsule,delayed release(DR/EC) 60 mg PO DAILY ferrous sulfate [FeroSul] 325 mg (65 mg iron) Tablet 325 mg PO LUNCH Qty: 30 0RF prednisone 20 mg tablet 20 mg PO DAILY Qty: 30 0RF melatonin 10 mg capsule 10 mg PO QHS 30 Days Qty: 0 0RF warfarin 1 mg tablet 7.5 mg PO WE Protocol: Dose Management Condition: Sunday Dose/Route: 6.5 mg Instruction: 6.5 x 1 mg tablets Condition: Sunday Dose/Route: 6.5 mg Instruction: 6.5 x 1 mg tablets Condition: Sunday Dose/Route: 6.5 mg Instruction: 6.5 x 1 mg tablets Condition: Sunday Dose/Route: 8 mg Instruction: 3 x 1 mg tablets, 1 x 5 mg tablet Condition: Dose/Route: 6.5 mg Instruction: 6.5 x 1 mg tablets Condition: Sunday Dose/Route: 6.5 mg Instruction: 6.5 x 1 mg tablets Condition: Sunday Dose/Route: 6.5 mg Instruction: 6.5 x 1 mg tablets Protocol Text: Adjustment Start Date: Sunday05/11/23 INR Value: 2.3 INR Date: 05/11/23 Recheck Date: 05/21/23 Rx Instructions: TAKE ONE AND A HALF 1MG TABLETS AND ONE 5MG TABLET TOGETHER ONCE DAILY FOR A TOTAL DAILY DOSE OF 6.5MG. metoprolol tartrate 50 mg tablet 50 mg PO BID Qty: 180 3RF Rx Instructions: TAKE 1 TABLET BY MOUTH TWICE A DAY Referrals / Follow Up: Donaldo Larson DO [Primary Care Provider] - Disposition Disposition (needs filled in before D/C Order can be placed): Acute Care Hospital Charges/Coding Visit Charges Inpatient E&M: 90099 Disch Hosp >30min
[2023-06-06] MEDS: Tamsulosin HCl 0.4 MG Capsule 0.400000000000000022 MG PO (16:06)
[2023-06-06] MEDS: LORazepam 0.5 MG Tablet PO (19:13)
== END 2023-06-06 19:33 | disposition short-term general hospital (02) | DRG 871 ==
LOC: ED 06-02 03:21 → PCU 06-02 04:00 → ICU 06-02 07:13 → PCU 06-04 12:05
PROVIDERS: Internal Medicine Critical Care Medicine; Admitting Provider Hospitalist; Emergency Provider Emergency Medicine; PCP Family Medicine; Referring Provider Hospitalist; Visit Provider Internal Medicine
DX: A41.01 Sepsis due to Methicillin susceptible Staphylococcus aureus (principal); R65.21 Severe sepsis with septic shock; I33.0 Acute and subacute infective endocarditis; G92.8 Other toxic encephalopathy; E27.40 Unspecified adrenocortical insufficiency; E87.20 Acidosis, unspecified; I42.9 Cardiomyopathy, unspecified; K50.90 Crohn's disease, unspecified, without complications; I47.29 Other ventricular tachycardia; N39.0 Urinary tract infection, site not specified; I27.20 Pulmonary hypertension, unspecified; D63.8 Anemia in other chronic diseases classified elsewhere; I11.0 Hypertensive heart disease with heart failure; I50.9 Heart failure, unspecified; I48.0 Paroxysmal atrial fibrillation; D50.0 Iron deficiency anemia secondary to blood loss (chronic); I08.8 Other rheumatic multiple valve diseases; F41.9 Anxiety disorder, unspecified; E78.5 Hyperlipidemia, unspecified; E87.6 Hypokalemia; I45.10 Unspecified right bundle-branch block; F43.10 Post-traumatic stress disorder, unspecified; R79.1 Abnormal coagulation profile; Z79.01 Long term (current) use of anticoagulants; N35.914 Unspecified anterior urethral stricture, male; Z79.52 Long term (current) use of systemic steroids; Z87.891 Personal history of nicotine dependence; G47.00 Insomnia, unspecified; Z95.2 Presence of prosthetic heart valve
CPT/HCPCS: 36415; 71045; 80048; 80053; 80202; 81001; 83605; 83735; 84100; 84145; 84484; 85025; 85027; 85610; 87040; 87077; 87086; 87088; 87149; 87186; 87493; 87631; 87633; 93005; 93306; 93312; 93320; 93325; 94668; 97116; 97162; 97166; 97530; 99284; J7030; J7040; J7050; J7120; A4216; J1940; J2405

== ENCOUNTER 2023-07-25 07:35 | Emergency (ER) | payer MEDICARE, OTHER, SELFPAY ==
[2023-07-25 07:36] VITALS: BP 146/70; PULSE 114; RESP 17; TEMP 37.1; O2SAT 96; BMI 31.7
--- NOTE | 2023-07-25 07:44 | EX.ED.DYSGE1 ---
HPI History of Present Illness Chief Complaint: Dizziness Informant: patient Onset/Context/Timing Onset: Yesterday Context: Gradual Onset Timing: Continuous Quality: Off balance Location: Generalized Worsened by: Nothing Relieved by: Nothing Narrative Narrative: Patient presents with cough and shortness of breath that began yesterday. Patient states it is gradually getting worse. Patient states nothing makes it worse and nothing makes it better. Patient denies any sputum production. Patient admits to a sore throat and some postnasal drainage. Patient denies any chest pain. Patient states his chest is sore from coughing but denies any other pain. Patient denies any fevers or chills. Patient also admits to some dizziness. Patient states he is having difficulty ambulating because he feels like he is off balance. Patient denies any spinning sensations. Patient denies any headaches. 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 Nonrheumatic aortic (valve) insufficiency Nonrheumatic pulmonary valve insufficiency Other [facility] drug therapy Palpitations Panic disorder Paroxysmal atrial fibrillation with RVR Pneumaturia Post traumatic stress disorder Pseudomembranous colitis Pure hypercholesterolemia Scarlet fever Sigmoid diverticulitis Streptococcal endocarditis Home Medications duloxetine 60 mg capsule,delayed release 60 mg PO DAILY DEPRESSION 04/25/23 [History Last Taken 04/24/23] ferrous sulfate 325 mg (65 mg iron) tablet (FeroSul) 325 mg PO LUNCH #30 tabs 05/04/23 [Rx Last Taken Unknown] melatonin 10 mg capsule 10 mg PO QHS SLEEP 30 days #0 caps 05/04/23 [Rx Last Taken 04/24/23] prednisone 20 mg tablet 20 mg PO DAILY #30 tabs 05/04/23 [Rx Last Taken Unknown] metoprolol tartrate 50 mg tablet 50 mg PO BID BLOOD PRESSURE #180 TABLETS 05/14/23 [Rx Last Taken Unknown] lorazepam 0.5 mg tablet 0.5 mg PO BID 05/21/23 [History Last Taken Unknown] warfarin 1 mg tablet 1 mg PO .COMPLEX BLOOD THINNER #180 tabs 07/02/23 [Rx Last Taken Unknown] warfarin 5 mg tablet 5 mg PO SUMOTUTHFRSA BLOOD THINNER #90 tabs 07/02/23 [Rx Last Taken Unknown] benzonatate 100 mg capsule 200 mg (2 x 100 mg) PO TID PRN PRN Cough #20 CAPSULES 07/25/23 [Rx Last Taken Unknown] oseltamivir 75 mg capsule 75 mg PO BID #10 CAPSULES 07/25/23 [Rx Last Taken Unknown] Allergy/AdvReac Type Severity Reaction Status Date / Time fentanyl Allergy Severe Other Verified 06/01/23 23:59 levofloxacin AdvReac Severe Passed out Verified 06/01/23 23:59 Family History Father CAD (coronary artery disease) Surgical History H/O pulmonic valve replacement History of colon resection History of colonoscopy (~04/2023) History of herniorrhaphy History of mechanical aortic valve replacement History of prosthetic heart valve Social History Smoking Status: Former smoker how long ago did patient quit smokin years ago alcohol intake: current alcohol intake frequency: holidays/special occasions only Alcohol type: beer details: social caffeine: Yes Type: coffee Number of servings: 1 ROS ROS ED Constitutional Constitutional ED: Denies chills or fever(s) Eyes Eyes: Denies blurry vision or change in vision ENT ENT ED: Reports rhinorrhea and sore throat Cardiovascular Cardiovascular: Denies chest pain or palpitations Respiratory/Chest Respiratory/Chest: Reports cough and dyspnea Gastrointestinal Gastrointestinal: Denies nausea or vomiting Genitourinary Genitourinary ED: Denies dysuria or hematuria Musculoskeletal Musculoskeletal: Reports back pain and neck pain Integumentary Reports rash; Denies abscess Neurologic Neurologic: Denies headache(s) or weakness Allergic/Immunologic Allergic/Immunologic ED: Denies mouth swelling or urticaria EXAM Physical Exam Const Vital Signs: 07/25/23 07:36 07/25/23 07:43 07/25/23 08:20 Temperature 98.7 F Temperature Source Temporal Pulse Rate 114 H 103 H Pulse Rate [Lying] Pulse Rate [Sitting (for 1 minute prior to obtaining)] Pulse Rate [Standing (for 1 minute prior to obtaining)] Respiratory Rate 17 18 Respiratory Effort Normal Non-Labored Respiratory Pattern Normal Blood Pressure 146/70 H Blood Pressure [Lying] Blood Pressure [Sitting (for 1 minute prior to obtaining)] Blood Pressure [Standing (for 1 minute prior to obtaining)] Blood Pressure Mean 95 Blood Pressure Mean [Lying] Blood Pressure Mean [Sitting (for 1 minute prior to obtaining)] Blood Pressure Mean [Standing (for 1 minute prior to obtaining)] Pulse Ox 96 Oxygen Delivery Method Room Air 07/25/23 09:37 Temperature Temperature Source Pulse Rate Pulse Rate [Lying] 110 H Pulse Rate [Sitting (for 1 minute prior to obtaining)] 112 H Pulse Rate [Standing (for 1 minute prior to obtaining)] 118 H Respiratory Rate Respiratory Effort Respiratory Pattern Blood Pressure Blood Pressure [Lying] 120/94 H Blood Pressure [Sitting (for 1 minute prior to obtaining)] 138/73 H Blood Pressure [Standing (for 1 minute prior to obtaining)] 108/72 Blood Pressure Mean Blood Pressure Mean [Lying] 102 Blood Pressure Mean [Sitting (for 1 minute prior to obtaining)] 94 Blood Pressure Mean [Standing (for 1 minute prior to obtaining)] 84 Pulse Ox Oxygen Delivery Method Positive well nourished and well developed General Appearance ED: well developed and NAD HEENT Reports moist mucous membranes Neck supple and no JVD Resp normal respiratory effort Auscultation: diminished lung sounds diffuse Cardio regular rate Rhythm: abnormal rhythm irregularly irregular GI non-tender and non-distended GI Narrative: There is a ventral hernia noted. It is nontender. It is easily reducible. Palpation: soft Extremity General Extremety ED: Yes edema; Negative for tenderness General Extremity: edema Neuro oriented x3, CN's II-XII intact bilaterally and no sensory deficits noted Sensorium / Orientation: alert Motor Exam: strength 5/5 throughout Psych mental status grossly normal MDM MDM MDM Narrative Medical decision making narrative: Differential diagnosis includes pneumonia, viral upper respiratory infection, bronchitis, electrolyte abnormality, vertigo, coagulopathy, cardiac dysrhythmia, and cardiac ischemia. EKG will be obtained to assess for cardiac dysrhythmia and cardiac ischemia. Chest x-ray will be obtained to assess for pneumonia and bronchitis. CBC will be obtained to assess for leukocytosis and anemia. Basic metabolic profile will be obtained to assess for electrolyte abnormality and renal function. High-sensitivity troponin will be obtained to assess for cardiac ischemia. COVID-19, influenza, and RSV PCR will be obtained to assess for viral infection. History & Record Review Additional record(s) reviewed:: Prior labs Lab Data Attestation: I reviewed the patient's lab results. Lab results narrative: CBC was reviewed. There is a mild anemia with a hemoglobin of 10.0 and hematocrit 32.2. The remainder is within normal limits. PT was INR and PTT were reviewed. Pro time was 16.6 and INR is 1.3. PTT was within normal limits. Basic metabolic profile was reviewed and was essentially within normal limits. High-sensitivity troponin was reviewed and was normal at 15. Urinalysis was reviewed. There is no evidence of urinary tract infection or hematuria. COVID-19 PCR was reviewed and was negative. Influenza PCR was reviewed and was positive for influenza A and negative for influenza B. RSV PCR was reviewed and was negative. Labs: Laboratory Results - last 24 hr 07/25/23 07/25/23 08:16 09:00 WBC 8.5 RBC 3.58 L Hgb 10.0 L Hct 32.2 L MCV 89.9 MCH 27.9 MCHC 31.1 L RDW Std Deviation 49.8 H RDW Coeff of Rich 15.1 H Plt Count 263 MPV 10.0 Immature Gran % (Auto) 0.500 Neut % (Auto) 77.8 H Lymph % (Auto) 4.7 L [place] % (Auto) 15.2 H Eos % (Auto) 1.1 Baso % (Auto) 0.7 Absolute Neuts (auto) 6.6 Absolute Lymphs (auto) 0.40 L Nucleated RBC % 0 PT 16.6 H INR 1.3 APTT 30.9 Sodium 135 L Potassium 4.2 Chloride 106 Carbon Dioxide 26.0 Anion Gap 3 L BUN 13 Creatinine 1.28 Estim Creat Clear Calc 59.87 Est GFR (MDRD) Af Amer 70 Est GFR (MDRD) Non-Af 58 L BUN/Creatinine Ratio 10.2 Glucose 119 H Calcium 9.0 Troponin I High Sens 15 Urine Color Yellow Urine Clarity Clear Urine pH 5.0 Ur Specific [place] 1.020 Urine Protein 30 H Urine Glucose (UA) Normal Urine Ketones 5 H Urine Occult Blood 10 H Urine Nitrite Negative Urine Bilirubin Negative Urine Urobilinogen Normal Ur Leukocyte Esterase Negative Urine RBC 0-5 SEEN Urine WBC 0 SEEN Ur Squamous Epith Cells 0-5 SEEN Urine Bacteria 0 SEEN Hyaline Casts 5-10 SEEN Urine Mucus 0 SEEN Radiography Diagnostic Testing: Clinical Impression(s) from Imaging Studies Chest X-Ray 07/25/23 08:30 IMPRESSION: Patchy bibasilar infiltrates. Electronically Signed: Osvaldo Curtis MD at 9:01 EST , PA and lateral chest x-ray was obtained. There are 2 views. On my independent interpretation, lung cuevas show patchy bibasilar infiltrates. There is normal cardiac silhouette. Bony thorax is normal. Radiologist also interpreted the x-ray and agrees. EKG Initial EKG: Attestation: I personally reviewed and interpreted this EKG as follows: Interpretation: Atrial Fibrillation (113) Comments: EKG was obtained. On my independent interpretation, it shows atrial fibrillation with a rate of 113. QRS interval was prolonged at 158 ms. QTc interval was prolonged at 529 ms. There is borderline left axis deviation at -9. There is a right bundle branch block pattern noted. There are nonspecific ST-T wave changes noted. There is no change compared to previous EKG. Prior EKG tracings: available for review Prior: Unchanged (06/06/2023) Treatment and Re-Evaluation :: Patient was given a dose of Tessalon here. Patient was given a DuoNeb aerosol. Patient was given a dose of Valium for his dizziness. After the chest x-ray results returned, patient was given a dose of Rocephin and Zithromax. After the viral results returned, patient was given a dose of Tamiflu. Patient was advised that he does not need antibiotics but was given a prescription for Tamiflu. Patient was also given a prescription for Tessalon Per[place]. Patient is feeling better on reevaluation. Patient was instructed to drink plenty of fluids. Patient was instructed to follow-up with his primary care physician in 5 to 7 days. Patient understood and was agreeable with the plan. All questions were answered. Discharge Plan Triage Chief Complaint: Dizziness ED Provider: Braden Burns Dx/Rx/DC Orders Clinical Impression: Influenza A, Pneumonia due to influenza A virus Instructions: ED Influenza (Adult) Prescriptions: New oseltamivir [oseltamivir] 75 mg capsule 75 mg PO BID Qty: 10 0RF benzonatate [benzonatate] 100 mg capsule 200 mg PO TID PRN PRN (Reason: Cough) Qty: 20 0RF No Action lorazepam 0.5 mg tablet 0.5 mg PO BID duloxetine 60 mg capsule,delayed release(DR/EC) 60 mg PO DAILY ferrous sulfate [FeroSul] 325 mg (65 mg iron) Tablet 325 mg PO LUNCH Qty: 30 0RF prednisone 20 mg tablet 20 mg PO DAILY Qty: 30 0RF melatonin 10 mg capsule 10 mg PO QHS 30 Days Qty: 0 0RF metoprolol tartrate 50 mg tablet 50 mg PO BID Qty: 180 3RF Rx Instructions: TAKE 1 TABLET BY MOUTH TWICE A DAY warfarin 1 mg tablet 1 mg PO .COMPLEX Qty: 180 3RF Protocol: Dose Management Condition: Sunday Dose/Route: 7.5 mg Instruction: 1.5 x 5 mg tablets Condition: Sunday Dose/Route: 2.5 mg Instruction: 0.5 x 5 mg tablets Condition: Sunday Dose/Route: 2.5 mg Instruction: 0.5 x 5 mg tablets Condition: Sunday Dose/Route: 5 mg Instruction: 1 x 5 mg tablet Condition: Dose/Route: 5 mg Instruction: 1 x 5 mg tablet Condition: Sunday Dose/Route: 7.5 mg Instruction: 1.5 x 5 mg tablets Condition: Sunday Dose/Route: 7.5 mg Instruction: 1.5 x 5 mg tablets Protocol Text: Adjustment Start Date: Sunday07/20/23 INR Value: 4.6 INR Date: 07/16/23 Recheck Date: 07/27/23 Rx Instructions: 1 mg orally; TAKE ONE AND A HALF 1MG TABLETS AND ONE 5MG TABLET TOGETHER ONCE DAILY FOR A TOTAL DAILY DOSE OF 6.5MG. warfarin 5 mg tablet 5 mg PO SUMOTUTHFRSA Qty: 90 3RF Protocol: Dose Management Condition: Sunday Dose/Route: 7.5 mg Instruction: 1.5 x 5 mg tablets Condition: Sunday Dose/Route: 2.5 mg Instruction: 0.5 x 5 mg tablets Condition: Sunday Dose/Route: 2.5 mg Instruction: 0.5 x 5 mg tablets Condition: Sunday Dose/Route: 5 mg Instruction: 1 x 5 mg tablet Condition: Dose/Route: 5 mg Instruction: 1 x 5 mg tablet Condition: Sunday Dose/Route: 7.5 mg Instruction: 1.5 x 5 mg tablets Condition: Sunday Dose/Route: 7.5 mg Instruction: 1.5 x 5 mg tablets Protocol Text: Adjustment Start Date: Sunday07/20/23 INR Value: 4.6 INR Date: 07/16/23 Recheck Date: 07/27/23 Primary Care Provider: Donaldo Larson Referrals: Donaldo Larson DO [Primary Care Provider] - 3-5 Days Disposition Disposition: Home, Self Care
--- NOTE | 2023-07-25 08:04 | EKG12_ITS ---
Test Reason : SOB Blood Pressure : / mmHG Vent. Rate : 113 BPM Atrial Rate : 000 BPM P-R Int : 000 ms QRS Dur : 158 ms QT Int : 386 ms P-R-T Axes : 000 -09 052 degrees QTc Int : 529 ms Atrial fibrillation with rapid ventricular response with premature ventricular or aberrantly conducte d complexes Right bundle branch block Abnormal ECG Confirmed by CONNOR TORRES, LANIE ([id number]), book editor MELISSA SOLORZANO ([id number]) on 07/26/2023 8:23:21 AM Referred By: Confirmed By:LANIE RYAN MD
[2023-07-25] MEDS: Ipratropium/Albuterol Sulfate 3 ML AMPUL.NEB INHALATION (08:19)
[2023-07-25 08:20] VITALS: PULSE 103; RESP 18
[2023-07-25] MEDS: Benzonatate 100 MG Capsule 200 MG PO (08:24)
[2023-07-25] MEDS: diazePAM 5 MG Tablet 2.5 MG PO (08:24)
[2023-07-25 08:30] LABS: Absolute Neutrophil Count 6.6 X10^3/uL (2.0-7.7); Basophil# 0.06 X10^3/uL; Basophil% 0.7 % (0-1); Eosinophil# 0.09 X10^3/uL; Eosinophils% 1.1 % (0-5); Hematocrit 32.2 % (40-54); Lymphocyte % 4.7 % (19-41); Mean Corp Hgb Conc 31.1 g/dL (32-36); Mean Corpuscular Hgb 27.9 pg (27.0-32.0); Mean Corpuscular Volume 89.9 fL (80-94); Monocyte# 1.29 X10^3/uL; Monocyte% 15.2 % (0-10); NRBC Flagged by Analyzer 0 % (0-5); Neutrophil # 6.59 X10^3/uL (2.7-7.7); Neutrophil % 77.8 % (47-70); POSITIVE DIFFERENTIAL YES; Platelet Count 263 K/mm3 (150-450); RBC Distribution Width CV 15.1 % (11.6-14.6); RBC Distribution Width SD 49.8 fl (35.1-43.9); Red Blood Count 3.58 M/mm3 (4.6-6.2); White Blood Count 8.5 K/mm3 (4.4-11.0)
--- NOTE | 2023-07-25 08:30 | RAD_ITS ---
STUDY: X-RAY CHEST REASON FOR EXAM: Male, 78 years old. History of dizziness and cough. TECHNIQUE: AP and lateral views of the chest. COMPARISON: Comparison is made with prior study dated June 02, 2023. FINDINGS: EKG electrodes are seen. A right-sided PICC line catheter is seen with the tip at the junction of the superior vena cava and right atrium. There are patchy bibasilar infiltrates. There is no demonstrated pleural abnormality. Sternal cerclage wires are present from a prior sternotomy. The patient is status post aortic valve replacement. Cardiomegaly. Normal mediastinum and corey. Normal visualized pulmonary arteries. There is atherosclerotic tortuosity of the aortic arch and descending thoracic aorta. There are diffuse degenerative changes of the visualized thoracic spine. Increased kyphosis. Normal visualized ribs, clavicles, and shoulders. There is no demonstrated abnormality of the visualized soft tissue structures of the upper abdomen. RAD/Chest PA and Lateral IMPRESSION: Patchy bibasilar infiltrates. Electronically Signed: Osvaldo Curtis MD at 9:01 EST ,
[2023-07-25 08:46] LABS: International Normalized Ratio 1.3; Partial Thromboplast Time 30.9 Seconds (24.1-36.2); Prothrombin Time (Protime)PT. 16.6 SECONDS (11.7-14.9)
[2023-07-25 08:55] LABS: Anion Gap 3 (5-15); BUN 13 mg/dL (7-18); BUN/Creat Ratio 10.2 RATIO (10-20); Chloride 106 mmol/L (98-107); Creatinine, Serum 1.28 mg/dL (0.70-1.30); EST Glomerular Filtration Rate 58 mL/min (>60); Est Glom Filt Rate - Afr Amer 70 mL/min (>60); Estimated Creatinine Clearance 59.87 ml/min; Glucose 119 mg/dL (74-106); Potassium 4.2 mmol/L (3.5-5.1); Sodium Level 135 mmol/L (136-145); Troponin-I HS 15 pg/mL (3.0-78.0)
[2023-07-25 09:05] LABS: Bacteria 0 SEEN /hpf (None Seen); Mucous, Urine 0 SEEN /hpf (<or=2+); White Blood Cells 0 SEEN /hpf (0-5)
[2023-07-25 09:11] LABS: Color, Urine Yellow (Yellow); Glucose, Dipstick Normal (Normal); Ketone-Dipstick 5 mg/dl (Negative); Leukocyte Esterase-Dipstick Negative /ul (Negative); Nitrite-Dipstick Negative (Negative); Occult Blood-Urine 10 /ul (Negative); Protein-Dipstick 30 mg/dl (Negative); Urine Bilirubin Dipstick Negative (Negative); Urine Clarity Clear (Clear); Urine Urobilinogen Normal (Normal)
[2023-07-25 09:18] LABS: Hyaline Cast 5-10 SEEN /lpf (0-5); Red Blood Cells-Urine 0-5 SEEN /hpf (0-5); Squamous Epithelial Cells - UA 0-5 SEEN /hpf (0-5)
[2023-07-25 09:37] VITALS: BP 108/72; BP 120/94; BP 138/73; PULSE 110; PULSE 112; PULSE 118
[2023-07-25] MEDS: Ceftriaxone 2 GM in 0.9% Normal Saline (50mL MB+) 50 ML IV (10:02)
[2023-07-25] MEDS: Azithromycin 250 MG Tablet 500 MG PO (10:02)
[2023-07-25] MEDS: Oseltamivir Phosphate 75 MG Capsule PO (10:22)
[2023-07-25 10:31] VITALS: BP 137/61; PULSE 108; RESP 19; TEMP 36.1; O2SAT 93
== END 2023-07-25 10:40 | disposition home or self-care (01) ==
PROVIDERS: Emergency Provider Emergency Medicine; PCP Family Medicine; Visit Provider Emergency Medicine
DX: J10.00 Influenza due to other identified influenza virus with unspecified type of pneumonia (principal); I48.0 Paroxysmal atrial fibrillation; Z87.891 Personal history of nicotine dependence; I10 Essential (primary) hypertension; Z79.899 Other long term (current) drug therapy; Z79.01 Long term (current) use of anticoagulants; Z95.2 Presence of prosthetic heart valve; R06.02 Shortness of breath
CPT/HCPCS: 36592; 71046; 80048; 81001; 84484; 85025; 85610; 85730; 87631; 93005; 94640; 96365; 99285; A4216

== ENCOUNTER 2023-07-27 09:49 | Emergency (ER) | payer MEDICARE, OTHER, SELFPAY ==
[2023-07-27 09:50] VITALS: BP 105/65; PULSE 84; RESP 20; TEMP 35.3; O2SAT 99; BMI 31.7
[2023-07-27 09:52] VITALS: BP 105/65; PULSE 84; RESP 18; TEMP 35.3; O2SAT 99
[2023-07-27 11:03] VITALS: BP 105/65; PULSE 84; RESP 18; TEMP 35.3; O2SAT 99
--- NOTE | 2023-07-27 11:43 | EDS_ITS ---
HPI History of Present Illness Chief Complaint: Back Informant: patient Onset/Context/Timing Onset: Days (2) Context: Gradual Onset Timing: Continuous Quality: Sharp Location: Lumbar Worsened by: improves with Movement and - (Coughing) Relieved by: Remaining Still Associated Symptoms Associated Symptoms: Negative for Numbness, Tingling, Radiation to Right Leg, Radiation to Left Leg, Fever, Abdominal Pain, Dysuria, Unable to Ambulate, Unable to Transfer, Urinary Retention, Urinary Incontinence, Constipation or Fecal Incontinence Narrative Narrative: Patient presents with back pain that began 2 days ago. Patient was recently seen here and diagnosed with influenza and pneumonia. Patient states he is on medications for that. Patient states the coughing has gotten worse. Patient states that he has worsening pain in his low back due to coughing. Patient states his pain is also worse with movement. Patient states his pain is mainly over the lower lumbar area. Patient describes his pain as sharp. Patient st ates it is better when he is able to remain still. Patient denies any radiation of the pain down his legs. Patient denies any paresthesias or weakness. Patient denies any fevers or chills. Patient denies any bowel or bladder changes. Patient denies any saddle anesthesia. [facility] Medical History Acute cystitis Acute diverticulitis Acute lower GI bleeding Anemia Anemia Anxiety Anxiety disorder Colovesical fistula Crohn's disease Diverticulitis E coli bacteremia Essential hypertension Fever Gastrointestinal bleed Gram-negative bacteremia Hiatal hernia History of atrial fibrillation History of Clostridioides difficile colitis History of endocarditis History of endocarditis Incisional hernia Irregular heart beat Kidney stones residential (current) use of anticoagulants residential current use of anticoagulant residential current use of anticoagulant Nonrheumatic aortic (valve) insufficiency Nonrheumatic pulmonary valve insufficiency 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 Palpitations Panic disorder Paroxysmal atrial fibrillation with RVR Pneumaturia Post traumatic stress disorder Pseudomembranous colitis Pure hypercholesterolemia Scarlet fever Sigmoid diverticulitis Streptococcal endocarditis Home Medications duloxetine 60 mg capsule,delayed release 60 mg PO DAILY DEPRESSION 04/25/23 [History Last Taken 04/24/23] ferrous sulfate 325 mg (65 mg iron) tablet (FeroSul) 325 mg PO LUNCH #30 tabs 05/04/23 [Rx Last Taken Unknown] melatonin 10 mg capsule 10 mg PO QHS SLEEP 30 days #0 caps 05/04/23 [Rx Last Taken 04/24/23] prednisone 20 mg tablet 20 mg PO DAILY #30 tabs 05/04/23 [Rx Last Taken Unknown] metoprolol tartrate 50 mg tablet 50 mg PO BID BLOOD PRESSURE #180 TABLETS 05/14/23 [Rx Last Taken Unknown] lorazepam 0.5 mg tablet 0.5 mg PO BID 05/21/23 [History Last Taken Unknown] warfarin 1 mg tablet 1 mg PO .COMPLEX BLOOD THINNER #180 tabs 07/02/23 [Rx Last Taken Unknown] warfarin 5 mg tablet 5 mg PO SUMOTUTHFRSA BLOOD THINNER #90 tabs 07/02/23 [Rx Last Taken Unknown] benzonatate 100 mg capsule 200 mg (2 x 100 mg) PO TID PRN PRN Cough #20 CAPSULES 07/25/23 [Rx Last Taken Unknown] oseltamivir 75 mg capsule 75 mg PO BID #10 CAPSULES 07/25/23 [Rx Last Taken Unknown] hydrocodone-acetaminophen 5-325mg 5mg-325mg 1 tab PO Q6H PRN PRN Pain 3 days #10 TABLETS 07/27/23 [Rx Last Taken Unknown] Allergy/AdvReac Type Severity Reaction Status Date / Time fentanyl Allergy Severe Other Verified 07/27/23 09:52 levofloxacin AdvReac Severe Passed out Verified 07/27/23 09:52 Family History Father CAD (coronary artery disease) Surgical History H/O pulmonic valve replacement History of colon resection History of colonoscopy (~04/2023) History of herniorrhaphy History of mechanical aortic valve replacement History of prosthetic heart valve Social History Smoking Status: Former smoker how long ago did patient quit smokin years ago alcohol intake: current alcohol intake frequency: holidays/special occasions only Alcohol type: beer details: social caffeine: Yes Type: coffee Number of servings: 1 ROS ROS ED Constitutional Constitutional ED: Denies chills or fever(s) Eyes Eyes: Denies blurry vision or change in vision ENT ENT ED: Denies rhinorrhea or sore throat Cardiovascular Cardiovascular: Denies chest pain or palpitations Respiratory/Chest Respiratory/Chest: Reports cough; Denies dyspnea Gastrointestinal Gastrointestinal: Denies nausea or vomiting Genitourinary Genitourinary ED: Denies dysuria or hematuria Musculoskeletal Musculoskeletal: Reports back pain and neck pain Integumentary Denies abscess or rash Neurologic Neurologic: Denies headache(s) or weakness Allergic/Immunologic Allergic/Immunologic ED: Denies mouth swelling or urticaria EXAM Physical Exam Const Vital Signs: 07/27/23 09:50 07/27/23 09:52 07/27/23 09:52 Temperature 95.5 F L 95.5 F L 95.5 F L Temperature Source Temporal Temporal Temporal Pulse Rate 84 84 84 Respiratory Rate 20 H 18 18 Blood Pressure 105/65 105/65 105/65 Blood Pressure Mean 78 78 78 Pulse Ox 99 99 99 Oxygen Delivery Method Room Air Room Air Room Air 07/27/23 11:03 Temperature 95.5 F L Temperature Source Temporal Pulse Rate 84 Respiratory Rate 18 Blood Pressure 105/65 Blood Pressure Mean 78 Pulse Ox 99 Oxygen Delivery Method Room Air Positive well nourished and well developed General Appearance ED: well developed and NAD HEENT Reports moist mucous membranes Neck supple and no JVD Resp normal respiratory effort and clear to auscultation bilaterally Cardio regular rate and regular rhythm GI soft to palpation, non-tender and non-distended GI Narrative: There is a ventral hernia noted that is easily reducible. There is no tenderness noted. Back/Spine Back/Spine Narrative: There is tenderness and spasm of the lumbar paraspinal muscles. There is mild midline tenderness. There is no bony crepitance or step-off noted. Range of motion was limited in all motions of the lumbar spine secondary to pain. Strength is 5/5 bilaterally in the lower extremities. Straight leg raises are negative bilaterally. There are no sensory deficits noted. Deep tendon reflexes are 2/4 bilaterally. Lumbar Spine / Lower Back: ROM limited and straight leg raise negative bilaterally Extremity normal to inspection Neuro oriented x3 and no sensory deficits noted Sensorium / Orientation: alert Motor Exam: strength 5/5 throughout Deep Tendon Reflexes: Rt Patellar (L4): 2+, Lt Patellar (L4): 2+, Rt Ankle (S1): 2+ and Lt Ankle (S1): 2+ Deep Tendon Reflexes Back: Rt Patellar (L4): 2+, Lt Patellar (L4): 2+, Rt Ankle (S1): 2+ and Lt Ankle (S1): 2+ Psych mental status grossly normal MDM MDM MDM Narrative Medical decision making narrative: Patient was advised that this most likely muscular strain from his coughing. Patient was given a dose of morphine here. Treatment and Re-Evaluation Narrative: Patient is feeling better on reevaluation. Patient is able to ambulate without difficulty. Patient was given a prescription for a short course of [place]. Patient was instructed to follow-up with his primary care physician in 5 to 7 days. Patient understood and was agreeable with the plan. All questions were a nswered. Discharge Plan Triage Chief Complaint: Back ED Provider: Braden Burns Dx/Rx/DC Orders Clinical Impression: Influenza A, Pneumonia due to influenza A virus, Acute lumbosacral myofascial strain Instructions: ED Back Sprain/Strain Prescriptions: New hydrocodone-acetaminophen [hydrocodone-acetaminophen] 5-325 mg tablet 1 tab PO Q6H PRN PRN (Reason: Pain) 3 Days Qty: 10 0RF No Action lorazepam 0.5 mg tablet 0.5 mg PO BID duloxetine 60 mg capsule,delayed release(DR/EC) 60 mg PO DAILY ferrous sulfate [FeroSul] 325 mg (65 mg iron) Tablet 325 mg PO LUNCH Qty: 30 0RF prednisone 20 mg tablet 20 mg PO DAILY Qty: 30 0RF melatonin 10 mg capsule 10 mg PO QHS 30 Days Qty: 0 0RF oseltamivir [oseltamivir] 75 mg capsule 75 mg PO BID Qty: 10 0RF benzonatate [benzonatate] 100 mg capsule 200 mg PO TID PRN PRN (Reason: Cough) Qty: 20 0RF metoprolol tartrate 50 mg tablet 50 mg PO BID Qty: 180 3RF Rx Instructions: TAKE 1 TABLET BY MOUTH TWICE A DAY warfarin 1 mg tablet 1 mg PO .COMPLEX Qty: 180 3RF Protocol: Dose Management Condition: Sunday Dose/Route: 7.5 mg Instruction: 1.5 x 5 mg tablets Condition: Sunday Dose/Route: 2.5 mg Instruction: 0.5 x 5 mg tablets Condition: Sunday Dose/Route: 2.5 mg Instruction: 0.5 x 5 mg tablets Condition: Sunday Dose/Route: 5 mg Instruction: 1 x 5 mg tablet Condition: Dose/Route: 5 mg Instruction: 1 x 5 mg tablet Condition: Sunday Dose/Route: 7.5 mg Instruction: 1.5 x 5 mg tablets Condition: Sunday Dose/Route: 7.5 mg Instruction: 1.5 x 5 mg tablets Protocol Text: Adjustment Start Date: Sunday07/20/23 INR Value: 4.6 INR Date: 07/16/23 Recheck Date: 07/27/23 Rx Instructions: 1 mg orally; TAKE ONE AND A HALF 1MG TABLETS AND ONE 5MG TABLET TOGETHER ONCE DAILY FOR A TOTAL DAILY DOSE OF 6.5MG. warfarin 5 mg tablet 5 mg PO SUMOTUTHFRSA Qty: 90 3RF Protocol: Dose Management Condition: Sunday Dose/Route: 7.5 mg Instruction: 1.5 x 5 mg tablets Condition: Sunday Dose/Route: 2.5 mg Instruction: 0.5 x 5 mg tablets Condition: Sunday Dose/Route: 2.5 mg Instruction: 0.5 x 5 mg tablets Condition: Sunday Dose/Route: 5 mg Instruction: 1 x 5 mg tablet Condition: Dose/Route: 5 mg Instruction: 1 x 5 mg tablet Condition: Sunday Dose/Route: 7.5 mg Instruction: 1.5 x 5 mg tablets Condition: Sunday Dose/Route: 7.5 mg Instruction: 1.5 x 5 mg tablets Protocol Text: Adjustment Start Date: Sunday07/20/23 INR Value: 4.6 INR Date: 07/16/23 Recheck Date: 07/27/23 Primary Care Provider: Donaldo Larson Referrals: Donaldo Larson DO [Primary Care Provider] - 3-5 Days Disposition Disposition: Home, Self Care
[2023-07-27] MEDS: Morphine 4 MG/ML Syringe IV (12:10)
--- NOTE | 2023-07-27 13:12 | ED.RN ---
patient given morphine at 1210. discharged at 1312. pt states he does not have anyone to give him a ride home. his SO is at work and his daughter lives hours away. pt educated that it is not safe to drive until at least 4 hours after receiving a morphine injection. pt understands this information and has agreed to wait in the waiting room until at least 1610. pt provided with food and a drink while waiting.
== END 2023-07-27 13:12 | disposition home or self-care (01) ==
PROVIDERS: Emergency Provider Emergency Medicine; PCP Family Medicine; Visit Provider Emergency Medicine
DX: J10.00 Influenza due to other identified influenza virus with unspecified type of pneumonia (principal); I48.0 Paroxysmal atrial fibrillation; Z79.01 Long term (current) use of anticoagulants; Z87.891 Personal history of nicotine dependence; I10 Essential (primary) hypertension; Z79.899 Other long term (current) drug therapy; Z95.2 Presence of prosthetic heart valve; X58.XXXA Exposure to other specified factors, initial encounter
CPT/HCPCS: 96374; 99282; A4216

== ENCOUNTER 2023-08-02 14:49 | Outpatient (RCR) | payer MEDICARE, OTHER, SELFPAY ==
[2023-08-02 16:16] LABS: Anion Gap 3 (5-15); BUN 13 mg/dL (7-18); BUN/Creat Ratio 12.5 RATIO (10-20); Calcium,Total 8.8 mg/dL (8.5-10.1); Chloride 106 mmol/L (98-107); Creatinine, Serum 1.04 mg/dL (0.70-1.30); EST Glomerular Filtration Rate 73 mL/min (>60); Est Glom Filt Rate - Afr Amer 89 mL/min (>60); Glucose 113 mg/dL (74-106); Potassium 4.2 mmol/L (3.5-5.1); Sodium Level 138 mmol/L (136-145)
[2023-08-02 16:32] LABS: International Normalized Ratio 2.8; Prothrombin Time (Protime)PT. 29.5 SECONDS (11.7-14.9)
== END 2023-08-02 18:00 | disposition home or self-care (01) ==
LOC: LAB 14:49
PROVIDERS: Nurse Practitioner Family; PCP Family Medicine; Referring Provider Internal Medicine Cardiovascular Disease; Visit Provider Internal Medicine Cardiovascular Disease
DX: Z79.01 Long term (current) use of anticoagulants (principal); Z95.2 Presence of prosthetic heart valve
CPT/HCPCS: 36415; 80048; 85610

== ENCOUNTER 2023-08-09 15:13 | Outpatient (RCR) | payer MEDICARE, OTHER, SELFPAY ==
[2023-08-09 16:13] LABS: International Normalized Ratio 2.9; Prothrombin Time (Protime)PT. 29.9 SECONDS (11.7-14.9)
== END 2023-09-02 01:28 | disposition home or self-care (01) ==
LOC: LAB 15:13
PROVIDERS: PCP Family Medicine; Referring Provider Internal Medicine Cardiovascular Disease; Visit Provider Internal Medicine Cardiovascular Disease
DX: Z79.01 Long term (current) use of anticoagulants (principal); Z95.2 Presence of prosthetic heart valve
CPT/HCPCS: 36415; 85610

== ENCOUNTER 2023-11-08 15:30 | Outpatient (RCR) | payer MEDICARE, OTHER, SELFPAY ==
--- NOTE | 2023-08-20 17:00 | HP.PTEVAL_ITS ---
Patient's Visit Information Visit Information Visit Information: TRAMAINE MAST is a 78 year old M referred to Physical Therapy by Dr. Donaldo Larson DO with a diagnosis of LOW BACK PAIN. Date of Evaluation: 08/20/23 Physical Therapist: Sage Santos PT, Cert MDT, OCS Visit Plan Frequency: 2x /Week Duration: 4 Weeks Plan: PT INTERVENTIONS LUMBAR ROM ,LE FLEXABILITY ,DLS ,POSTURAL EX'S AND MOD ALTIES NEEDED Subjective Subjective: This 78 y/o male presents to physical therapy with low back pain. Patient had colon bleed ~ 6 months was given prednisone then caused impaired immune system with pneumonia ,flu A and syph infection was transferred to [facility]. Patient was hospitalized for 3 weeks. Developed weakness and low back . Patient located lumbar spine symmetrical lumbar described ache. Aggravating factors walking 5 years /standing ~ 2mins. Alleviating sitting and rest. Coughing/sneezing -. Denies paresthesia/tingling-. Patient pain can affects sleeping in recliner unable to lay in bed. Bowel/bladder-. Patient comorbities as below contributing factors. Patient condition affects QOL and function/endurance/gait. Patient has had no recent imaging. Patient goals to decrease pain and walking SOCIAL: single VOCATION: retired Pain Bilateral Back: Pain Intensity (Out of 10): 8 Pain Intensity Range: 10 Objective Objective: POSTURE: mod thoracic kyphosis hips/knees flexed ,forward head NEURO: denies paresthesia/tingling GAIT: reciprocal pattern mild forward posture mod thoracic kyphosis hip/knees flexed slow david decrease step length SYMMETRIES: align FLEXABLITY: hamstrings mod tight ,piriformis mod tight LUMBAR ROM: flexion mod tight ,extension severe tight ,side glides mod tight Special Tests L/S Slump test left side: Negative L/S Slump test right side: Negative L/S Left Straight Leg Raise: Negative L/S Right Straight Leg Raise: Negative Lumbar Standing: Flexion - Mechanical Response: No effect Lumbar Standing: Flexion - Symptoms During Testing: Produces Lumbar Standing: Flexion - Symptoms After Testing: No effect Lumbar Standing: Extension - Mechanical Response: No effect Lumbar Standing: Extension - Symptoms During Testing: Increases Lumbar Standing: Extension - Symptoms After Testing: No worse Lumbar Standing: Right Side Glides - Mechanical Response: No effect Lumbar Standing: Right Side [place] - Symptoms During Testing: Increases Lumbar Standing: Right Side [place] - Symptoms After Testing: No worse Lumbar Standing: Left Side [place] - Mechanical Response: No effect Lumbar Standing: Left Side [place] - Symptoms During Testing: Increases Lumbar Standing: Left Side [place] - Symptoms After Testing: No worse Balance/Special Test Scores Oswestry Low Back Score: 27 Goals Goal 1:: Patient to be I with HEP Goal Time Frame: 4-6 Weeks Goal 2:: Patient to demonstrate 40% improvement with less pain and improved function Goal Time Frame: 4-6 Weeks Goal 3:: Patient to improve lumbar ROM for function of recovery to tie and put on shoes. Goal Time Frame: 4-6 Weeks Goal 4:: Patient to improve back oswestry score by 5 point to improve QOL and function Goal Time Frame: 4-6 Weeks Goal 5:: Patient to be able to walk > 5 MINS with less pain. Rehabilitation Potential Physical Therapy Diagnosis: This patient has lumbar pain with generalized weakness and decrease lumbar ROM thus will benefit from skilled PT Rehabilitation Potential: Good Anticipated Interventions Patient/Client Instruction: Educate patient on: Condition and Plan of Care For the Purpose of:: To decrease pain, To increase ROM, To improve muscle performance and motor function, To improve ability to perform ADL's, To increase tolerance to activity/condition/position, To improve ability of physical actions for home/community/work/leisure, To improve health of tissue, To decrease soft tissue restriction, To increase flexibility/ROM, To improve endurance and To prevent re-injury Therapeutic Exercise to Include: Strength training, Endurance training, Balance training, Body mechanics, Postural training, Flexibilty training and Dynamic Lumbar Stabilization For the Purpose of:: To decrease pain, To increase ROM, To improve muscle performance and motor function, To improve ability to perform ADL's, To increase tolerance to activity/condition/position, To improve ability of physical actions for home/community/work/leisure, To improve gait and locomotor functions, To improve health of tissue and To decrease soft tissue restriction TENS: Yes IF ES: Yes Cryotherapy (ice pack, ice massage): Yes Thermo therapy (hot pack): Yes Ultrasound (thermal/non thermal): Yes For the Purpose of:: To decrease pain, To increase ROM, To improve nutrient delivery to tissue, To increase oxygenation perfusion, To improve health of t issue and To decrease soft tissue restriction Text: Thank you for the opportunity to evaluate your patient. For Medicare and Medicare HMO plans, please review the plan of care and approve it. It will need to be FAXED BACK to us at [phone] for Medicare purposes. For Medicare only, by signing this I certify the plan of care. Please let me know if there are questions or concerns regarding this plan of care. Physician Signature: Date:
--- NOTE | 2023-09-13 15:57 | HP.PTREVAL ---
Re-Evaluation Intro: Dr. Donaldo Larson, DO, It has been my pleasure to treat TRAMAINE MAST over the last 7 visits for LOW BACK PAIN. Please see the progress note below for an update on the physical therapy plan of care! Subjective Subjective: Patient is getting better , patient has difficulty walking > 5mins unable to lay in bed for < 1 hour sleeps in recliner Objective Objective/Function: * Patient will continue with PT to improve function and decrease pain improve endurance thus goals still appropriate* POSTURE: mod thoracic kyphosis hips/knees flexed ,forward head NEURO: denies paresthesia/tingling GAIT: reciprocal pattern mild forward posture mod thoracic kyphosis hip/knees flexed slow david decrease step length SYMMETRIES: align FLEXABLITY: hamstrings mod tight ,piriformis mod tight LUMBAR ROM: flexion mod tight ,extension severe tight ,side glides mod tight Plan Plan Plan: PT INTERVENTIONS LUMBAR ROM ,LE FLEXABILITY ,DLS ,POSTURAL EX'S AND MODALTIES NEEDED Balance/Gait/Functional tests Balance/Special Test Scores Oswestry Low Back Score: 24 Goals Goals Goal 1:: Patient to be I with HEP Goal Time Frame: 4-6 Weeks Goal Progress: Progressing Goal 2:: Patient to demonstrate 60% improvement with less pain and improved function( new goal) Goal Time Frame: 4-6 Weeks Goal 3:: Patient to improve lumbar ROM for function of recovery to tie and put on shoes. Goal Time Frame: 4-6 Weeks Goal Progress: Progressing Goal 4:: Patient to improve back oswestry score by 5 point to improve QOL and function Goal Time Frame: 4-6 Weeks Goal Progress: Progressing Goal 5:: Patient to be able to walk > 5 MINS with less pain. Goal Progress: Progressing Anticipated Interventions Anticipated Interventions Patient/Client Instruction: Educate patient on: Condition and Plan of Care For the Purpose of:: To decrease pain, To increase ROM, To improve muscle performance and motor function, To improve ability to perform ADL's, To increase tolerance to activity/condition/position, To improve ability of physical actions for home/community/work/leisure, To improve health of tissue, To decrease soft tissue restriction, To increase flexibility/ROM, To improve endurance and To prevent re-injury Therapeutic Exercise to Include: Strength training, Endurance training, Balance training, Body mechanics, Postural training, Flexibilty training and Dynamic Lumbar Stabilization For the Purpose of:: To decrease pain, To increase ROM, To improve muscle performance and motor function, To improve ability to perform ADL's, To increase tolerance to activity/condition/position, To improve ability of physical actions for home/community/work/leisure, To improve gait and locomotor functions, To improve health of tissue and To decrease soft tissue restriction TENS: Yes IF ES: Yes Cryotherapy (ice pack, ice massage): Yes Thermo therapy (hot pack): Yes Ultrasound (thermal/non thermal): Yes For the Purpose of:: To decrease pain, To increase ROM, To improve nutrient delivery to tissue, To increase oxygenation perfusion, To improve health of tissue and To decrease soft tissue restriction Re-Evaluation Ending Re-evaluation ending: Please do not hesitate to contact me at [phone] by phone or if you have questions or concerns regarding this new plan of care! Sincerely, Sage Santos, PT, Cert MDT, OCS
--- NOTE | 2023-10-11 15:50 | HP.PTREVAL_ITS ---
Re-Evaluation Intro: Dr. Donaldo Larson, DO, It has been my pleasure to treat TRAMAINE MAST over the last 15 visits for LOW BACK PAIN. Please see the progress note below for an update on the physical therapy plan of care! Subjective Subjective: Doing a lot better getting stronger Patient to be able to walk > 10 MINS Objective Objective/Function: * Patient will continue with PT to improve function and decrease pain improve endurance and improve posture for ADLS thus goals still appropriate* POSTURE: mod thoracic kyphosis hips/knees flexed ,forward head NEURO: denies paresthesia/tingling GAIT: reciprocal pattern mild forward posture mod thoracic kyphosis hip/knees flexed slow david decrease step length SYMMETRIES: align FLEXABLITY: hamstrings mod tight ,piriformis mod tight LUMBAR ROM: flexion mod tight ,extension severe tight ,side glides mod tight MMT: Plan Plan Plan: cont with POC PT INTERVENTIONS LUMBAR ROM ,LE FLEXABILITY ,DLS ,POSTURAL EX'S AND MODALTIES NEEDED Balance/Gait/Functional tests Balance/Special Test Scores Oswestry Low Back Score: 18 Goals Goals Goal 1:: Patient to be I with HEP Goal Time Frame: 4-6 Weeks Goal Progress: Progressing Goal 2:: Patient to demonstrate 60% improvement with less pain and improved function( new goal) Goal Time Frame: 4-6 Weeks Goal Progress: Progressing Goal 3:: Patient to improve lumbar ROM for function of recovery to tie and put on shoes. Goal Time Frame: 4-6 Weeks Goal Progress: Progressing Goal 4:: Patient to improve back oswestry score by 5 point to improve QOL and function( new goal) Goal Time Frame: 4-6 Weeks Goal Progress: Progressing Goal 5:: Patient to be able to walk > 10 MINS with less pain.( new goal) Goal Progress: Progressing Anticipated Interventions Anticipated Interventions Patient/Client Instruction: Educate patient on: Condition and Plan of Care For the Purpose of:: To decrease pain, To increase ROM, To improve muscle performance and motor function, To improve ability to perform ADL's, To increase tolerance to activity/condition/position, To improve ability of physical actions for home/community/work/leisure, To improve health of tissue, To decrease soft tissue restriction, To increase flexibility/ROM, To improve endurance and To prevent re-injury Therapeutic Exercise to Include: Strength training, Endurance training, Balance training, Body mechanics, Postural training, Flexibilty training and Dynamic Lumbar Stabilization For the Purpose of:: To decrease pain, To increase ROM, To improve muscle perf ormance and motor function, To improve ability to perform ADL's, To increase tolerance to activity/condition/position, To improve ability of physical actions for home/community/work/leisure, To improve gait and locomotor functions, To improve health of tissue and To decrease soft tissue restriction TENS: Yes IF ES: Yes Cryotherapy (ice pack, ice massage): Yes Thermo therapy (hot pack): Yes Ultrasound (thermal/non thermal): Yes For the Purpose of:: To decrease pain, To increase ROM, To improve nutrient delivery to tissue, To increase oxygenation perfusion, To improve health of tissue and To decrease soft tissue restriction Re-Evaluation Ending Re-evaluation ending: Please do not hesitate to contact me at [phone] by phone or if you have questions or concerns regarding this new plan of care! Sincerely, Sage Santos, PT, Cert MDT, OCS
--- NOTE | 2023-11-08 15:57 | HP.PTDCSUM ---
Discharge Summary D/C summary: It has been my pleasure to treat TRAMAINE MAST referred by Dr. Donaldo Larson DO, with the diagnosis of LOW BACK PAIN for a total of 22 visit(s). Discharge Date: 11/08/23 Please see the following information for a summary of their discharge status. Subjective Subjective: Doing well,ready for d/c like my posture to be better Pain Bilateral Back: Pain Intensity (Out of 10): 0 Bilat lat hips: Pain Intensity (Out of 10): 0 Overall Improvement % Improvement: 60 Objective Objective/Function: POSTURE: mod thoracic kyphosis hips/knees flexed ,forward head NEURO: denies paresthesia/tingling GAIT: reciprocal pattern mild forward posture mod thoracic kyphosis hip/knees flexed slow david decrease step length SYMMETRIES: align FLEXABLITY: hamstrings mod tight ,piriformis mod tight LUMBAR ROM: flexion mod tight ,extension severe tight ,side glides mod tight MMT: 4/5 quads/hams /hip ,ankle 5/5 Goals Goal 1:: Patient to be I with HEP Goal Progress: Goal Met Goal 2:: Patient to demonstrate 60% improvement with less pain and improved function( new goal) Goal Progress: Goal Met Goal 3:: Patient to improve lumbar ROM for function of recovery to tie and put on shoes. Goal Progress: Goal Met Goal 4:: Patient to improve back oswestry score by 5 point to improve QOL and function( new goal) Goal Progress: Goal Met Goal 5:: Patient to be able to walk > 10 MINS with less pain.( new goal) Goal Progress: Progressing Plan Plan: d/c D/C Information Discharge Comments: HEP d/c sentence: If there are questions or concerns regarding this patient's physical therapy, please feel free to call me at [phone]. Thank you for the referral of this patient. Sincerely, Sage Santos, PT, Cert MDT, OCS Balance/Gait/Functional tests Balance/Special Test Scores Oswestry Low Back Score: 16 Improvement % Improvement: 60
== END 2023-11-08 19:00 | disposition home or self-care (01) ==
LOC: PT 15:30
PROVIDERS: PCP Family Medicine; Visit Provider Family Medicine
DX: M54.50 Low back pain, unspecified (principal)
CPT/HCPCS: 97110; 97162; 97530

== ENCOUNTER → 2024-01-18 | Outpatient (CLI) | payer MEDICARE, OTHER, SELFPAY ==
--- NOTE | 2024-01-18 16:18 | RAD_ITS ---
EXAM: XR CHEST, 2 VIEWS CLINICAL INDICATION: SOB TECHNIQUE: Frontal and lateral views of the chest. COMPARISON: 07/25/2023 FINDINGS: LUNGS AND PLEURAL SPACES: There is a small to moderate right-sided pleural effusion. There is likely right basilar atelectasis. No pneumothorax. HEART: Unremarkable. Cardiac silhouette not enlarged. MEDIASTINUM: Central airways and mediastinal contour are unremarkable. BONES/JOINTS: Unremarkable. No acute fracture. SOFT TISSUES: Unremarkable. RAD/Chest PA and Lateral IMPRESSION: Small to moderate right-sided effusion with right basilar atelectasis. Electronically Signed: Rey Lugo MD at 17:32 EDT ,
== END | disposition home or self-care (01) ==
LOC: MTRAD 16:18
PROVIDERS: PCP Family Medicine; Referring Provider Physician Assistant Surgical; Visit Provider Physician Assistant Surgical
DX: R06.02 Shortness of breath (principal)
CPT/HCPCS: 71046

== ENCOUNTER 2024-01-19 00:22 | Emergency (ER) | payer MEDICARE, OTHER, SELFPAY ==
[2024-01-19] VITALS (9 sets, daily range): BP systolic 89–104; BP diastolic 51–61; PULSE 63–85; RESP 15–22; TEMP 36.8–37.6; O2SAT 93–96; BMI 30.8
[2024-01-19 01:28] LABS: Lactic Acid 1.4 mmol/L (0.4-1.9)
--- NOTE | 2024-01-19 01:28 | EDS_ITS ---
HPI History of Present Illness Chief Complaint: Fever Informant: patient Onset/Context/Timing Onset: Today Context: Gradual Onset Timing: Continuous Quality: Clear Location: Sputum Worsened by: Nothing Relieved by: Tylenol Narrative Narrative: Patient presents with fever that began today. Patient states he had a temperature up to 102.4 at home. Patient states he broke out into a sweat with it. Patient states he took some Tylenol which helped briefly. Patient states his fever returned after the Tylenol wore off. Patient states he has been coughing up some clear sputum. Patient denies any chest pain. Patient denies any nausea or vomiting. Patient denies any urinary complaints. 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 Nonrheumatic aortic (valve) insufficiency Nonrheumatic pulmonary valve insufficiency 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 (current) use of anticoagulants Gastrointestinal bleed Post traumatic stress disorder Panic disorder Anxiety Streptococcal endocarditis Colovesical fistula Sigmoid diverticulitis E coli bacteremia Fever Pneumaturia Gram-negative bacteremia Acute cystitis Acute diverticulitis Anxiety disorder History of endocarditis Home Medications ?Medication ?Instructions ?Recorded ?Last Taken ?Type ferrous sulfate 325 mg (65 mg 325 mg PO LUNCH #30 tabs 05/04/23 Unknown Rx iron) tablet (FeroSul) melatonin 10 mg capsule 10 mg PO QHS SLEEP 30 days #0 caps 05/04/23 04/24/23 Rx lorazepam 0.5 mg tablet 0.5 mg PO BID 05/21/23 Unknown History warfarin 1 mg tablet 1 mg PO .COMPLEX BLOOD THINNER 08/02/23 Unknown Rx #180 tabs warfarin 5 mg tablet 5 mg PO .COMPLEX BLOOD THINNER #90 08/02/23 Unknown Rx tabs metoprolol tartrate 50 mg tablet 50 mg PO BID BLOOD PRESSURE #180 12/17/23 Unknown Rx TABLETS duloxetine 60 mg capsule,delayed 60 mg PO DAILY DEPRESSION #90 caps 12/24/23 Unknown Rx release amoxicillin 875 mg-potassium 1 tab PO Q12H 10 days #20 tabs 08/16/24 Unknown Rx clavulanate 125 mg tablet azithromycin 250 mg tablet See Rx Instructions PO .COMPLEX #6 01/18/24 Unknown Rx tabs ascorbic acid (vitamin C) 500 mg 500 mg PO DAILY 01/19/24 Unknown History tablet (C-500) cyanocobalamin (vitamin B-12) 100 mcg .Route 01/19/24 Unknown History mcg/mL injection solution Allergy/AdvReac Type Severity Reaction Status Date / Time fentanyl Allergy Severe Other Verified 01/19/24 00:27 levofloxacin AdvReac Severe Passed out Verified 01/19/24 00:27 Family History Father CAD (coronary artery disease) Surgical History History of prosthetic heart valve History of colonoscopy (~04/2023) History of mechanical aortic valve replacement History of herniorrhaphy History of colon resection H/O pulmonic valve replacement Social History Smoking Status: Former smoker how long ago did patient quit smokin years ago alcohol intake: current alcohol intake frequency: holidays/special occasions only Alcohol type: beer details: social caffeine: Yes Type: coffee Number of servings: 1 ROS ROS ED Constitutional Constitutional ED: Reports fever(s) and sweats; Denies chills Eyes Eyes: Denies blurry vision or change in vision ENT ENT ED: Denies rhinorrhea or sore throat Cardiovascular Cardiovascular: Denies chest pain or palpitations Respiratory/Chest Respiratory/Chest: Reports cough, dyspnea and sputum Gastrointestinal Gastrointestinal: Denies nausea or vomiting Genitourinary Genitourinary ED: Denies dysuria or hematuria Musculoskeletal Musculoskeletal: Reports neck pain; Denies back pain Integumentary Reports rash; Denies abscess Neurologic Neurologic: Denies headache(s) or weakness Allergic/Immunologic Allergic/Immunologic ED: Denies mouth swelling or urticaria EXAM Physical Exam Const Vital Signs: 01/19/24 00:28 01/19/24 00:32 01/19/24 00:33 Temperature 99.7 F H 99.7 F H Temperature Source Temporal Oral Pulse Rate 78 85 Pulse Rate [Lying] Pulse Rate [Sitting (for 1 minute prior to obtaining)] Pulse Rate [Standing (for 1 minute prior to obtaining)] Respiratory Rate 18 18 Respiratory Effort Normal Non-Labored Respiratory Pattern Normal Blood Pressure 103/52 L 103/52 L Blood Pressure [Lying] Blood Pressure [Sitting (for 1 minute prior to obtaining)] Blood Pressure [Standing (for 1 minute prior to obtaining)] Blood Pressure Mean 69 69 Blood Pressure Mean [Lying] Blood Pressure Mean [Sitting (for 1 minute prior to obtaining)] Blood Pressure Mean [Standing (for 1 minute prior to obtaining)] Pulse Ox 95 96 Oxygen Delivery Method Room Air Room Air 01/19/24 01:01 01/19/24 01:01 01/19/24 02:15 Temperature Temperature Source Pulse Rate 77 Pulse Rate [Lying] Pulse Rate [Sitting (for 1 minute prior to obtaining)] Pulse Rate [Standing (for 1 minute prior to obtaining)] Respiratory Rate 15 Respiratory Effort Respiratory Pattern Blood Pressure 92/51 L Blood Pressure [Lying] Blood Pressure [Sitting (for 1 minute prior to obtaining)] Blood Pressure [Standing (for 1 minute prior to obtaining)] Blood Pressure Mean 64 Blood Pressure Mean [Lying] Blood Pressure Mean [Sitting (for 1 minute prior to obtaining)] Blood Pressure Mean [Standing (for 1 minute prior to obtaining)] Pulse Ox 94 96 Oxygen Delivery Method Room Air Room Air Room Air 01/19/24 04:00 01/19/24 05:39 01/19/24 06:00 Temperature Temperature Source Pulse Rate 75 71 Pulse Rate [Lying] 69 Pulse Rate [Sitting (for 1 minute prior to obtaining)] 65 Pulse Rate [Standing (for 1 minute prior to obtaining)] 67 Respiratory Rate 22 H 17 Respiratory Effort Respiratory Pattern Blood Pressure 94/55 L 104/57 L Blood Pressure [Lying] 94/55 L Blood Pressure [Sitting (for 1 minute prior to obtaining)] 100/61 Blood Pressure [Standing (for 1 minute prior to obtaining)] 89/58 L Blood Pressure Mean 68 72 Blood Pressure Mean [Lying] 68 Blood Pressure Mean [Sitting (for 1 minute prior to obtaining)] 74 Blood Pressure Mean [Standing (for 1 minute prior to obtaining)] 68 Pulse Ox 93 96 Oxygen Delivery Method Room Air Nasal Cannula Positive well nourished and well developed General Appearance ED: well developed and NAD HEENT Reports moist mucous membranes Neck supple and no JVD Resp normal respiratory effort Auscultation: rales bilateral base Cardio regular rate and regular rhythm Rhythm: abnormal rhythm ectopic beats GI non-tender and non-distended Palpation: soft Extremity General Extremety ED: Yes edema; Negative for tenderness General Extremity: edema Neuro oriented x3, CN's II-XII intact bilaterally and no sensory deficits noted Sensorium / Orientation: alert Motor Exam: strength 5/5 throughout MDM MDM MDM Narrative Medical decision making narrative: Differential diagnosis included pneumonia, urinary tract infection, viral illness, sepsis, cardiac dysrhythmia, cardiac ischemia, congestive heart failure, sepsis, and coagulopathy. Chest x-ray will be obtained to assess for pneumonia and congestive heart failure. EKG will be obtained to assess for cardiac dysrhythmia and cardiac ischemia. CBC will be obtained to assess for leukocytosis and anemia. Basic metabolic profile will be obtained to assess for electrolyte abnormality and renal function. High-sensitivity troponin will be obtained to assess for cardiac ischemia. PT with INR and PTT will be obtained to assess for coagulopathy. Serum lactate will be obtained to assess for lactic acidosis and sepsis. Blood culture will be obtained to assess for sepsis. Urinalysis will be obtained to assess for urinary tract infection. COVID-19, influenza, and RSV PCR will be obtained to assess for viral illness. History & Record Review Additional record(s) reviewed:: Prior outpatient record Lab Data Attestation: I reviewed the patient's lab results. Lab results narrative: CBC was reviewed and showed a leukocytosis of 17.3. There is a stable anemia with a hemoglobin of 12.5 and hematocrit 38.2. PT was INR and PTT were reviewed. Pro time was 26.9 and INR is 2.5. PTT was 48.5. Basic metabolic profile was reviewed and was essentially within normal limits. High-sensitivity troponin was reviewed and was normal at 15. BNP was reviewed and was slightly elevated at 261.0. Urinalysis was reviewed. There is leukocyte esterase of 25 with 5-10 white blood cells. Serum lactate was reviewed and was normal at 1.4. COVID-19 PCR was reviewed and was negative. Influenza PCR was reviewed and was negative for influenza A and influenza B. RSV PCR was reviewed and was negative. Labs: Laboratory Results - last 24 hr 01/19/24 01/19/24 00:57 02:27 WBC 17.3 H RBC 4.16 L Hgb 12.5 L Hct 38.2 L MCV 91.8 MCH 30.0 MCHC 32.7 RDW Std Deviation 47.4 H RDW Coeff of Rich 14.1 Plt Count 199 MPV 10.3 Immature Gran % (Auto) 0.600 Neut % (Auto) 81.2 H Lymph % (Auto) 2.9 L Mccormick % (Auto) 14.1 H Eos % (Auto) 0.7 Baso % (Auto) 0.5 Absolute Neuts (auto) 14.0 H Absolute Lymphs (auto) 0.50 L Nucleated RBC % 0 Differential Comment SCANNED Diff Path Review October foll PT 26.9 H INR 2.5 APTT 48.5 H Sodium 135 L Potassium 4.0 Chloride 103 Carbon Dioxide 26.0 Anion Gap 6 BUN 20 H Creatinine 1.07 Estim Creat Clear Calc 70.63 Est GFR (MDRD) Af Amer 86 Est GFR (MDRD) Non-Af 71 BUN/Creatinine Ratio 18.7 Glucose 126 H Lactic Acid 1.4 Calcium 8.8 Troponin I High Sens 15 B-Natriuretic Peptide 261.0 H Urine Color Kelsey Urine Clarity Sl. Cloudy Urine pH 6.0 Ur Specific [place] 1.020 Urine Protein 30 H Urine Glucose (UA) Normal Urine Ketones Negative Urine Occult Blood 10 H Urine Nitrite Negative Urine Bilirubin 1 H Urine Urobilinogen 8 H Ur Leukocyte Esterase 25 H Urine RBC 0-5 SEEN Urine WBC 5-10 SEEN Ur Squamous Epith Cells 0-5 SEEN Urine Bacteria RARE Urine Mucus 0 SEEN Radiography Diagnostic Testing: Clinical Impression(s) from Imaging Studies Chest X-Ray 01/19/24 02:10 IMPRESSION: Moderate right pleural effusion with right basilar airspace disease. This may indicate atelectasis or infection. Electronically Signed: Rodrick Gifford MD at 2:43 EDT , PA and lateral chest x-ray was obtained. There are 2 views. On my independent interpretation, lung cuevas show a right pleural effusion with right basilar infiltrate. There is normal cardiac silhouette. Bony thorax is normal. Radiologist also interpreted the x-ray and agrees. EKG Initial EKG: Attestation: I personally reviewed and interpreted this EKG as follows: Interpretation: Atrial Fibrillation (78), RBBB and Non-Specific ST Changes Comments: EKG was obtained. On my independent interpretation, it shows atrial fibrillation with a rate of 78. QRS interval was prolonged at 162 ms. QTc interval was slightly prolonged at 517 ms. There is left axis deviation at -37. There is a right bundle branch block pattern noted. There are nonspecific ST-T wave changes noted. Prior EKG tracings: available for review Prior: Unchanged (07/25/2023) Treatment and Re-Evaluation :: Patient was given a dose of Tylenol here. Patient was given a dose of Rocephin and Zithromax here. Patient was advised of his findings. Patient was feeling better on reevaluation. Orthostatic vital signs were obtained and were within normal limits. Patient was ambulated with pulse oximeter. Patient's oxygen status was 92 and above. Patient was instructed to continue with his Zithromax and Augmentin as prescribed. Patient was instructed to follow-up with his primary care physician in 5 to 7 days. Patient was instructed to continue Tylenol or ibuprofen as needed for any aches or fevers. Patient understood and was agreeable with the plan. All questions were answered. Discharge Plan Triage Chief Complaint: Fever ED Provider: Braden Burns Dx/Rx/DC Orders Clinical Impression: Pneumonia, Pleural effusion Instructions: ED Pneumonia (Adult) Prescriptions: No Action lorazepam 0.5 mg tablet 0.5 mg PO BID azithromycin 250 mg tablet See Rx Instructions PO .COMPLEX Qty: 6 0RF Rx Instructions: take 500 mg today (day 1), then 250 mg for 4 days (days 2-5) PO amoxicillin-pot clavulanate 875-125 mg tablet 1 tab PO Q12H 10 Days Qty: 20 0RF ferrous sulfate [FeroSul] 325 mg (65 mg iron) Tablet 325 mg PO LUNCH Qty: 30 0RF melatonin 10 mg capsule 10 mg PO QHS 30 Days Qty: 0 0RF ascorbic acid (vitamin C) [C-500] 500 mg tablet 500 mg PO DAILY cyanocobalamin (vitamin B-12) 100 mcg/mL solution .Route warfarin 1 mg tablet 1 mg PO .COMPLEX Qty: 180 3RF Protocol: Dose Management Condition: Sunday Dose/Route: 6 mg Instruction: 1 x 1 mg tablet, 1 x 5 mg tablet Condition: Sunday Dose/Route: 6 mg Instruction: 1 x 1 mg tablet, 1 x 5 mg tablet Condition: Sunday Dose/Route: 6 mg Instruction: 1 x 1 mg tablet, 1 x 5 mg tablet Condition: Sunday Dose/Route: 6 mg Instruction: 1 x 1 mg tablet, 1 x 5 mg tablet Condition: Dose/Route: 6 mg Instruction: 1 x 1 mg tablet, 1 x 5 mg tablet Condition: Sunday Dose/Route: 6 mg Instruction: 1 x 1 mg tablet, 1 x 5 mg tablet Condition: Sunday Dose/Route: 6 mg Instruction: 1 x 1 mg tablet, 1 x 5 mg tablet Protocol Text: Adjustment Start Date: Sunday08/13/23 INR Value: 2.9 INR Date: 08/09/23 Recheck Date: 08/27/23 Rx Instructions: daily with a 5mg tablet to = 6 mg: dose changes often warfarin 5 mg tablet 5 mg PO .COMPLEX Qty: 90 3RF Protocol: Dose Management Condition: Sunday Dose/Route: 6 mg Instruction: 1 x 1 mg tablet, 1 x 5 mg tablet Condition: Sunday Dose/Route: 6 mg Instruction: 1 x 1 mg tablet, 1 x 5 mg tablet Condition: Sunday Dose/Route: 6 mg Instruction: 1 x 1 mg tablet, 1 x 5 mg tablet Condition: Sunday Dose/Route: 6 mg Instruction: 1 x 1 mg tablet, 1 x 5 mg tablet Condition: Dose/Route: 6 mg Instruction: 1 x 1 mg tablet, 1 x 5 mg tablet Condition: Sunday Dose/Route: 6 mg Instruction: 1 x 1 mg tablet, 1 x 5 mg tablet Condition: Sunday Dose/Route: 6 mg Instruction: 1 x 1 mg tablet, 1 x 5 mg tablet Protocol Text: Adjustment Start Date: Sunday08/13/23 INR Value: 2.9 INR Date: 08/09/23 Recheck Date: 08/27/23 Rx Instructions: 5 mg orally daily with a 1 mg tablet to = 6mg: dose changes often; metoprolol tartrate 50 mg tablet 50 mg PO BID Qty: 180 3RF Rx Instructions: TAKE 1 TABLET BY MOUTH TWICE A DAY duloxetine 60 mg capsule,delayed release(DR/EC) 60 mg PO DAILY Qty: 90 0RF Primary Care Provider: Donaldo Larson Referrals: Donaldo Larson DO [Primary Care Provider] - 3-5 Days Activity Restrictions/Additional Instructions: Continue your antibiotics as prescribed. Take Tylenol as needed for any aches or fevers. Print Language: Thai Disposition Disposition: Home, Self Care
--- NOTE | 2024-01-19 01:36 | EKG12_ITS ---
Test Reason : DYSRHYTHMIA Blood Pressure : / mmHG Vent. Rate : 078 BPM Atrial Rate : 081 BPM P-R Int : 000 ms QRS Dur : 162 ms QT Int : 454 ms P-R-T Axes : 000 -37 093 degrees QTc Int : 517 ms Atrial fibrillation Left axis deviation Right bundle branch block T wave abnormality, consider lateral ischemia Abnormal ECG Confirmed by GALEN TORRES, BAR ([id number]), brands editor KATELYNN NAGY ([id number] on 01/25/2024 6:12:49 AM Referred By: Confirmed By:CÉSAR AARON MD
[2024-01-19] MEDS: Acetaminophen 500 MG Tablet 1000 MG PO (01:47)
[2024-01-19 02:05] LABS: Basophil# 0.08 X10^3/uL; Basophil% 0.5 % (0-1); Eosinophil# 0.12 X10^3/uL; Eosinophils% 0.7 % (0-5); Hematocrit 38.2 % (40-54); Hemoglobin 12.5 g/dL (13.0-16.5); Lymphocyte % 2.9 % (19-41); Mean Corp Hgb Conc 32.7 g/dL (32-36); Mean Corpuscular Volume 91.8 fL (80-94); Mean Platelet Vol. 10.3 fl (6.2-12.0); Monocyte# 2.44 X10^3/uL; Monocyte% 14.1 % (0-10); NRBC Flagged by Analyzer 0 % (0-5); Neutrophil % 81.2 % (47-70); POSITIVE DIFFERENTIAL YES; Platelet Count 199 K/mm3 (150-450); RBC Distribution Width CV 14.1 % (11.6-14.6); RBC Distribution Width SD 47.4 fl (35.1-43.9); Red Blood Count 4.16 M/mm3 (4.6-6.2); White Blood Count 17.3 K/mm3 (4.4-11.0)
[2024-01-19 02:07] LABS: Differential Indicated SCAN CRITERIA MET
[2024-01-19 02:09] LABS: International Normalized Ratio 2.5; Prothrombin Time (Protime)PT. 26.9 SECONDS (11.7-14.9)
[2024-01-19 02:10] LABS: Partial Thromboplast Time 48.5 Seconds (24.1-36.2)
--- NOTE | 2024-01-19 02:10 | RAD_ITS ---
EXAM: XR CHEST, 2 VIEWS CLINICAL INDICATION: Fever TECHNIQUE: Frontal and lateral views of the chest. COMPARISON: 2 view chest 01/18/2024 FINDINGS: LUNGS AND PLEURAL SPACES: Moderate right pleural effusion with right basilar airspace disease. No pneumothorax. HEART: Unremarkable. Cardiac silhouette not enlarged. MEDIASTINUM: Surgical changes of the mediastinum. BONES/JOINTS: Degenerative changes of the spine. No acute fracture. SOFT TISSUES: Unremarkable. RAD/Chest PA and Lateral IMPRESSION: Moderate right pleural effusion with right basilar airspace disease. This may indicate atelectasis or infection. Electronically Signed: Rodrick Gifford MD at 2:43 EDT ,
[2024-01-19 02:19] LABS: Anion Gap 6 (5-15); BUN 20 mg/dL (7-18); BUN/Creat Ratio 18.7 RATIO (10-20); Calcium,Total 8.8 mg/dL (8.5-10.1); Chloride 103 mmol/L (98-107); Creatinine, Serum 1.07 mg/dL (0.70-1.30); EST Glomerular Filtration Rate 71 mL/min (>60); Est Glom Filt Rate - Afr Amer 86 mL/min (>60); Estimated Creatinine Clearance 70.63 ml/min; Glucose 126 mg/dL (74-106); Sodium Level 135 mmol/L (136-145); Troponin-I HS 15 pg/mL (3.0-78.0)
[2024-01-19 02:29] LABS: Mucous, Urine 0 SEEN /hpf (<or=2+)
[2024-01-19 02:33] LABS: Differential Comment SCANNED
[2024-01-19 02:33] LABS: Color, Urine Amber (Yellow); Glucose, Dipstick Normal (Normal); Ketone-Dipstick Negative (Negative); Leukocyte Esterase-Dipstick 25 /ul (Negative); Nitrite-Dipstick Negative (Negative); Occult Blood-Urine 10 /ul (Negative); Protein-Dipstick 30 mg/dl (Negative); Urine Clarity Sl. Cloudy (Clear); Urine Urobilinogen 8 mg/dl (Normal)
[2024-01-19 02:45] LABS: Red Blood Cells-Urine 0-5 SEEN /hpf (0-5); Urine Bilirubin Dipstick 1 mg/dL (Negative); White Blood Cells 5-10 SEEN /hpf (0-5)
[2024-01-19 02:46] LABS: Bacteria RARE /hpf (None Seen); Squamous Epithelial Cells - UA 0-5 SEEN /hpf (0-5)
[2024-01-19] MEDS: Ceftriaxone 2 GM in 0.9% Normal Saline (50mL MB+) 50 ML IV (04:05)
[2024-01-19] MEDS: Azithromycin 500 MG in Dextrose 5%-Water (250mL Bag) 250 ML 250 MG IV (04:34)
[2024-01-21 10:32] LABS: Pathologist Review Reviewed
== END 2024-01-19 06:39 | disposition home or self-care (01) ==
PROVIDERS: Emergency Provider Emergency Medicine; PCP Family Medicine; Visit Provider Emergency Medicine
DX: J18.9 Pneumonia, unspecified organism (principal); I48.0 Paroxysmal atrial fibrillation; E78.00 Pure hypercholesterolemia, unspecified; Z87.891 Personal history of nicotine dependence; I10 Essential (primary) hypertension; J90 Pleural effusion, not elsewhere classified; R50.9 Fever, unspecified; Z79.01 Long term (current) use of anticoagulants; Z79.899 Other long term (current) drug therapy; F41.9 Anxiety disorder, unspecified; Z95.2 Presence of prosthetic heart valve; R06.02 Shortness of breath
CPT/HCPCS: 96365; 96367; 99284; 71046; 80048; 81001; 83605; 83880; 84484; 85025; 85610; 85730; 87040; 87077; 87149; 87631; 93005; J7050; A4216; J0696

== ENCOUNTER 2024-01-21 14:53 | Inpatient (IN) | payer MEDICARE, OTHER, SELFPAY ==
[2024-01-21] VITALS (9 sets, daily range): BP systolic 112–122; BP diastolic 61–78; PULSE 72–77; RESP 12–23; TEMP 36.1–37.2; O2SAT 91–98; BMI 31.3; BMI 30.5
--- NOTE | 2024-01-21 16:23 | EKG12_ITS ---
Test Reason : GEN Blood Pressure : / mmHG Vent. Rate : 072 BPM Atrial Rate : 000 BPM P-R Int : 000 ms QRS Dur : 164 ms QT Int : 482 ms P-R-T Axes : 000 -38 093 degrees QTc Int : 527 ms Atrial fibrillation Left axis deviation Right bundle branch block Abnormal ECG Confirmed by GALEN TORRES, BAR ([id number]), copy editor MELISSA SOLORZANO ([id number]) on 01/25/2024 6:29:01 AM Referred By: Confirmed By:CÉSAR AARON MD
--- NOTE | 2024-01-21 16:25 | EDS_ITS ---
HPI History of Present Illness Chief Complaint: Shortness of Breath Detail of Chief Complaint: Not feeling well, exertional dyspnea Informant: patient Narrative Narrative: Patient presents to the emergency department with complaint of not feeling well and exertional dyspnea. Patient states that he has been sick for about 5 days. He was seen in the emergency department on the which is 2 days ago and diagnosed with pneumonia. Patient was started on Zithromax and Augmentin. Patient apparently grew out blood cultures and was advised by his primary care physician to come in and be admitted for IV antibiotics. Patient does have a cough. He had a fever at home up to 102. Complains of exertional dyspnea. Cough continues but relatively dry. Patient has prior history of endocarditis. Patient currently on Coumadin for history of mechanical heart valves. 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 Nonrheumatic aortic (valve) insufficiency Nonrheumatic pulmonary valve insufficiency Palpitations [facility] (current) use of anticoagulants Gastrointestinal bleed Post traumatic stress disorder Panic disorder Anxiety Streptococcal endocarditis Colovesical fistula Sigmoid diverticulitis E coli bacteremia Fever Pneumaturia Gram-negative bacteremia Acute cystitis Acute diverticulitis Anxiety disorder History of endocarditis Home Medications ?Medication ?Instructions ?Recorded ?Last Taken ?Type ferrous sulfate 325 mg (65 mg 325 mg PO LUNCH #30 tabs 05/04/23 Unknown Rx iron) tablet (FeroSul) melatonin 10 mg capsule 10 mg PO QHS SLEEP 30 days #0 caps 05/04/23 04/24/23 Rx lorazepam 0.5 mg tablet 0.5 mg PO BID 05/21/23 Unknown History warfarin 1 mg tablet 1 mg PO .COMPLEX BLOOD THINNER 08/02/23 Unknown Rx #180 tabs warfarin 5 mg tablet 5 mg PO .COMPLEX BLOOD THINNER #90 08/02/23 Unknown Rx tabs metoprolol tartrate 50 mg tablet 50 mg PO BID BLOOD PRESSURE #180 12/17/23 Unknown Rx TABLETS duloxetine 60 mg capsule,delayed 60 mg PO DAILY DEPRESSION #90 caps 12/24/23 Unknown Rx release amoxicillin 875 mg-potassium 1 tab PO Q12H 10 days #20 tabs 01/18/24 Unknown Rx clavulanate 125 mg tablet ascorbic acid (vitamin C) 500 mg 500 mg PO DAILY 01/19/24 Unknown History tablet (C-500) cyanocobalamin (vitamin B-12) 100 mcg .Route 01/19/24 Unknown History mcg/mL injection solution cephalexin 500 mg capsule 1,000 mg PO TID 01/21/24 Unknown History Allergy/AdvReac Type Severity Reaction Status Date / Time fentanyl Allergy Severe Other Verified 01/21/24 14:56 levofloxacin AdvReac Severe Passed out Verified 01/21/24 14:56 Family History Father CAD (coronary artery disease) Surgical History History of prosthetic heart valve History of colonoscopy (~04/2023) History of mechanical aortic valve replacement History of herniorrhaphy History of colon resection H/O pulmonic valve replacement Social History Smoking Status: Former smoker how long ago did patient quit smokin years ago alcohol intake: current alcohol intake frequency: holidays/special occasions only Alcohol type: beer details: social caffeine: Yes Type: coffee Number of servings: 1 ROS ROS ED Review of Systems ROS Unobtainable: other Constitutional Constitutional ED: Reports fever(s) and lethargy; Denies chills, sweats or weight loss Eyes Eyes: Denies blurry vision, change in vision or diplopia ENT ENT ED: Denies rhinorrhea or sore throat Cardiovascular Cardiovascular: Denies chest pain, orthopnea or racing heartbeat Respiratory/Chest Respiratory/Chest: Reports cough, dyspnea and dyspnea on exertion; Denies orthopnea or sputum Gastrointestinal Gastrointestinal: Denies abdominal pain, diarrhea, nausea or vomiting Genitourinary Genitourinary ED: Denies dysuria, hematuria or urinary frequency Musculoskeletal Musculoskeletal: Denies arthralgias, back pain, myalgias or neck pain Integumentary Denies abscess, Abrasions or rash Neurologic Neurologic: Reports weakness; Denies headache(s) Psychiatric Psychiatric: Denies anxiety, depression or suicidal thoughts Endocrine Endocrinology: Denies polydipsia, polyphagia or polyuria Hematologic/Lymphatic Hematologic/Lymphatic: Denies easy bleeding, easy bruising or lymphadenopathy Allergic/Immunologic Allergic/Immunologic ED: Denies mouth swelling, tongue swelling or urticaria EXAM Physical Exam Const Vital Signs: 01/21/24 14:53 01/21/24 16:23 01/21/24 16:44 Temperature 97.4 F L 98.8 F Temperature Source Temporal Temporal Pulse Rate 75 75 Respiratory Rate 16 19 H Respiratory Effort Normal Respiratory Depth Normal Respiratory Pattern Normal Blood Pressure 113/61 113/61 Blood Pressure Mean 78 78 Pulse Ox 97 94 Oxygen Delivery Method Room Air 01/21/24 17:04 01/21/24 18:00 Temperature 98.9 F Temperature Source Temporal Pulse Rate 76 72 Respiratory Rate 23 H 19 H Respiratory Effort Respiratory Depth Respiratory Pattern Blood Pressure 112/78 Blood Pressure Mean 89 Pulse Ox 91 96 Oxygen Delivery Method Room Air Room Air Positive well nourished and well developed General Appearance ED: well developed and NAD HEENT Reports TM's clear and moist mucous membranes normocephalic and atraumatic; Negative for trauma or tenderness Tympanic Membrane ED: Yes TM's clear Eyes PERRL and EOMs intact bilaterally General Eye ED: Negative for pale conjunctiva or scleral icterus Neck no lymphadenopathy, supple and no JVD General: Negative for tenderness Chest Wall inspection of chest normal and palpation of chest normal Chest: Negative for tenderness Resp normal respiratory effort and No clear to auscultation bilaterally Resp Narrative: Few Rales noted both bases. No significant tachypnea. No accessory muscle use or retractions. Effort and Inspection: Negative for respiratory distress or pain with movement Auscultation: rales; Negative for rhonchi, wheezes or diminished lung sounds Cardio regular rate, regular rhythm, S1 normal heart sound, S2 normal heart sound and no murmurs Peripheral Pulses: pulses 2+ throughout GI normal to inspection, nondistended, normoactive bowel sounds, soft to palpation, non-tender, non-distended and no masses Back/Spine no CVA tenderness and no thoracic nor lumbar tenderness Extremity normal to inspection General Extremety ED: Negative for edema General Extremity: Negative for edema Neuro oriented x3, CN's II-XII intact bilaterally, no sensory deficits noted and gait normal Sensorium / Orientation: awake, alert, oriented to person, oriented to place and oriented to time Motor Exam: strength 5/5 throughout and strength abnormal Psych mental status grossly normal Skin no rashes or lesions noted and no wounds MDM MDM MDM Narrative Medical decision making narrative: Patient presents with exertional dyspnea and cough. Patient with recent diagnosis of pneumonia and sent home with Zithromax and Augmentin. Today his PCP called because his blood cultures were positive for Staph aureus. He was told to come to the ER to get IV antibiotics. IV line established. EKG obtained arrival showed atrial fibrillation with rate of 72 bpm with right bundle branch block. CBC with differential showed a white count of 10.2 with hemoglobin 12.9 and platelet count of 212. Chemistries unremarkable. INR was 2.1. Troponin was normal at 7. 1 view chest x-ray obtained interpreted by myself as right pleural effusion with right infiltrate. I was able to look up the culture results however there are no sensitivities as of yet. He did test positive for Staph aureus. Discussed case with hospitalist Dr. Florentino who will evaluate patient for admission. I did start patient on Zosyn IV. Lab Data Attestation: I reviewed the patient's lab results. Labs: Laboratory Results - last 24 hr 01/21/24 16:49 WBC 10.2 RBC 4.20 L Hgb 12.9 L Hct 38.6 L MCV 91.9 MCH 30.7 MCHC 33.4 RDW Std Deviation 47.9 H RDW Coeff of Rich 14.1 Plt Count 212 MPV 11.2 Immature Gran % (Auto) 0.700 Neut % (Auto) 74.0 H Lymph % (Auto) 6.6 L [place] % (Auto) 15.2 H Eos % (Auto) 2.9 Baso % (Auto) 0.6 Absolute Neuts (auto) 7.5 Absolute Lymphs (auto) 0.67 L Nucleated RBC % 0 Differential Comment SCANNED PT 23.6 H INR 2.1 Sodium 133 L Potassium 4.4 Chloride 103 Carbon Dioxide 26.0 Anion Gap 4 L BUN 19 H Creatinine 1.04 Estim Creat Clear Calc 73.23 Est GFR (MDRD) Af Amer 89 Est GFR (MDRD) Non-Af 73 BUN/Creatinine Ratio 18.3 Glucose 105 Calcium 8.8 Troponin I High Sens 7 Radiography Diagnostic Testin view chest x-ray obtained interpreted by myself as right pleural effusion with right lower lobe infiltrate. EKG Initial EKG: Attestation: I personally reviewed and interpreted this EKG as follows: Comments: Atrial fibrillation with rate of 72 bpm with right bundle branch block Discharge Plan Triage Chief Complaint: Shortness of Breath ED Provider: Karla Kraft Dx/Rx/DC Orders Clinical Impression: Pneumonia, Pleural effusion, right, Bacteremia Prescriptions: No Action lorazepam 0.5 mg tablet 0.5 mg PO BID amoxicillin-pot clavulanate 875-125 mg tablet 1 tab PO Q12H 10 Days Qty: 20 0RF ferrous sulfate [FeroSul] 325 mg (65 mg iron) Tablet 325 mg PO LUNCH Qty: 30 0RF melatonin 10 mg capsule 10 mg PO QHS 30 Days Qty: 0 0RF ascorbic acid (vitamin C) [C-500] 500 mg tablet 500 mg PO DAILY cyanocobalamin (vitamin B-12) 100 mcg/mL solution .Route cephalexin 500 mg capsule 1,000 mg PO TID warfarin 1 mg tablet 1 mg PO .COMPLEX Qty: 180 3RF Protocol: Dose Management Condition: Sunday Dose/Route: 6 mg Instruction: 1 x 1 mg tablet, 1 x 5 mg tablet Condition: Sunday Dose/Route: 6 mg Instruction: 1 x 1 mg tablet, 1 x 5 mg tablet Condition: Sunday Dose/Route: 6 mg Instruction: 1 x 1 mg tablet, 1 x 5 mg tablet Condition: Sunday Dose/Route: 6 mg Instruction: 1 x 1 mg tablet, 1 x 5 mg tablet Condition: Dose/Route: 6 mg Instruction: 1 x 1 mg tablet, 1 x 5 mg tablet Condition: Sunday Dose/Route: 6 mg Instruction: 1 x 1 mg tablet, 1 x 5 mg tablet Condition: Sunday Dose/Route: 6 mg Instruction: 1 x 1 mg tablet, 1 x 5 mg tablet Protocol Text: Adjustment Start Date: Sunday08/13/23 INR Value: 2.9 INR Date: 08/09/23 Recheck Date: 08/27/23 Rx Instructions: daily with a 5mg tablet to = 6 mg: dose changes often warfarin 5 mg tablet 5 mg PO .COMPLEX Qty: 90 3RF Protocol: Dose Management Condition: Sunday Dose/Route: 6 mg Instruction: 1 x 1 mg tablet, 1 x 5 mg tablet Condition: Sunday Dose/Route: 6 mg Instruction: 1 x 1 mg tablet, 1 x 5 mg tablet Condition: Sunday Dose/Route: 6 mg Instruction: 1 x 1 mg tablet, 1 x 5 mg tablet Condition: Sunday Dose/Route: 6 mg Instruction: 1 x 1 mg tablet, 1 x 5 mg tablet Condition: Dose/Route: 6 mg Instruction: 1 x 1 mg tablet, 1 x 5 mg tablet Condition: Sunday Dose/Route: 6 mg Instruction: 1 x 1 mg tablet, 1 x 5 mg tablet Condition: Sunday Dose/Route: 6 mg Instruction: 1 x 1 mg tablet, 1 x 5 mg tablet Protocol Text: Adjustment Start Date: Sunday08/13/23 INR Value: 2.9 INR Date: 08/09/23 Recheck Date: 08/27/23 Rx Instructions: 5 mg orally daily with a 1 mg tablet to = 6mg: dose changes often; metoprolol tartrate 50 mg tablet 50 mg PO BID Qty: 180 3RF Rx Instructions: TAKE 1 TABLET BY MOUTH TWICE A DAY duloxetine 60 mg capsule,delayed release(DR/EC) 60 mg PO DAILY Qty: 90 0RF Primary Care Provider: Donaldo Larson Referrals: Donaldo Larson DO [Primary Care Provider] - Print Language: Chinese
[2024-01-21 17:14] LABS: Absolute Lymphocyte Count 0.67 X10^3/uL (0.83-4.51); Absolute Neutrophil Count 7.5 X10^3/uL (2.0-7.7); Basophil# 0.06 X10^3/uL; Basophil% 0.6 % (0-1); Eosinophil# 0.29 X10^3/uL; Eosinophils% 2.9 % (0-5); Hematocrit 38.6 % (40-54); Hemoglobin 12.9 g/dL (13.0-16.5); Lymphocyte # 0.67 X10^3/ul (0.83-4.51); Lymphocyte % 6.6 % (19-41); Mean Corp Hgb Conc 33.4 g/dL (32-36); Mean Corpuscular Hgb 30.7 pg (27.0-32.0); Mean Corpuscular Volume 91.9 fL (80-94); Mean Platelet Vol. 11.2 fl (6.2-12.0); Monocyte# 1.54 X10^3/uL; Monocyte% 15.2 % (0-10); NRBC Flagged by Analyzer 0 % (0-5); Neutrophil # 7.53 X10^3/uL (2.7-7.7); POSITIVE DIFFERENTIAL YES; Platelet Count 212 K/mm3 (150-450); RBC Distribution Width CV 14.1 % (11.6-14.6); RBC Distribution Width SD 47.9 fl (35.1-43.9); White Blood Count 10.2 K/mm3 (4.4-11.0)
[2024-01-21 17:16] LABS: Differential Indicated SCAN CRITERIA MET
[2024-01-21 17:18] LABS: Anion Gap 4 (5-15); BUN 19 mg/dL (7-18); BUN/Creat Ratio 18.3 RATIO (10-20); Calcium,Total 8.8 mg/dL (8.5-10.1); Chloride 103 mmol/L (98-107); Creatinine, Serum 1.04 mg/dL (0.70-1.30); EST Glomerular Filtration Rate 73 mL/min (>60); Est Glom Filt Rate - Afr Amer 89 mL/min (>60); Estimated Creatinine Clearance 73.23 ml/min; Glucose 105 mg/dL (74-106); International Normalized Ratio 2.1; Potassium 4.4 mmol/L (3.5-5.1); Prothrombin Time (Protime)PT. 23.6 SECONDS (11.7-14.9); Sodium Level 133 mmol/L (136-145); Troponin-I HS 7 pg/mL (3.0-78.0)
[2024-01-21] MEDS: Piperacil/Tazobactam 4.5 GM in 0.9% Normal Saline (100mL MB+) 100 ML IV (17:21)
--- NOTE | 2024-01-21 17:33 | RAD_ITS ---
INDICATION: dyspnea EXAMINATION/TECHNIQUE: X-RAY - XR Chest 1 View COMPARISON: January 19, 2024 FINDINGS: LINES/DEVICES: Stable sternotomy wires. LUNGS: Right basilar infiltrate and effusion. No pneumothorax. MEDIASTINUM AND CARDIOVASCULAR STRUCTURES: Cardiac silhouette not enlarged. Central airways and mediastinal contour are unremarkable. BONES AND SOFT TISSUES: Degenerative vertebral changes. RAD/Chest 1 View (Portable) IMPRESSION: Right basilar infiltrate and effusion. Electronically Signed: Matias Jules DO at 18:41 EDT ,
[2024-01-21 17:41] LABS: Differential Comment SCANNED
--- NOTE | 2024-01-21 18:55 | PCM.HP.STD ---
HPI - General General Date of Admission: 01/21/24 Date of Service: 01/21/24 Chief Complaint: Blood culture positive. Recently diagnosed pneumonia. 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 Patient is Sterets he still has cough and brings up thick, long sticky yellowish phlegm. He gets short of breath on walking and moving, exertional dyspnea. He has been sick for last 5 days. At that time, blood culture was sent which came on positive for Staph aureus therefore patient was called to come to ED. On January 18 he had a fever at home 102.4 Fahrenheit but was afebrile in ED,blood pressure was 103/52 but not tachypneic or hypoxic. Patient has chronic A-fib, mechanical aortic valve replacement on warfarin. Patient is started on IV vancomycin for staph auris bacteremia and further admitted. 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 Pure hypercholesterolemia Essential hypertension Other longterm (current) drug therapy Nonrheumatic aortic (valve) insufficiency Nonrheumatic pulmonary valve insufficiency Palpitations shelter (current) use of anticoagulants Gastrointestinal bleed Post traumatic stress disorder Panic disorder Anxiety Streptococcal endocarditis Colovesical fistula Sigmoid diverticulitis E coli bacteremia Fever Pneumaturia Gram-negative bacteremia Acute cystitis Acute diverticulitis Anxiety disorder History of endocarditis Home Medications ?Medication ?Instructions ?Recorded ?Last Taken ?Type ferrous sulfate 325 mg (65 mg 325 mg PO LUNCH #30 tabs 05/04/23 Unknown Rx iron) tablet (FeroSul) melatonin 10 mg capsule 10 mg PO QHS SLEEP 30 days #0 caps 05/04/23 04/24/23 Rx lorazepam 0.5 mg tablet 0.5 mg PO BID 05/21/23 01/21/24 History warfarin 1 mg tablet 1 mg PO .COMPLEX BLOOD THINNER 08/02/23 01/21/24 Rx #180 tabs warfarin 5 mg tablet 5 mg PO .COMPLEX BLOOD THINNER #90 02/29/24 08/19/24 Rx tabs metoprolol tartrate 50 mg tablet 50 mg PO BID BLOOD PRESSURE #180 12/17/23 01/21/24 Rx TABLETS duloxetine 60 mg capsule,delayed 60 mg PO DAILY DEPRESSION #90 caps 12/24/23 01/21/24 Rx release amoxicillin 875 mg-potassium 1 tab PO Q12H 10 days #20 tabs 01/18/24 01/21/24 Rx clavulanate 125 mg tablet ascorbic acid (vitamin C) 500 mg 500 mg PO DAILY 01/19/24 Unknown History tablet (C-500) cyanocobalamin (vitamin B-12) 100 mcg .Route 01/19/24 Unknown History mcg/mL injection solution cephalexin 500 mg capsule 1,000 mg PO TID 01/21/24 01/21/24 History Allergy/AdvReac Type Severity Reaction Status Date / Time fentanyl Allergy Severe Other Verified 01/21/24 14:56 levofloxacin AdvReac Severe Passed out Verified 01/21/24 14:56 Family History Father CAD (coronary artery disease) Surgical History History of prosthetic heart valve History of colonoscopy (~04/2023) History of mechanical aortic valve replacement History of herniorrhaphy History of colon resection H/O pulmonic valve replacement Social History Smoking Status: Former smoker how long ago did patient quit smokin years ago alcohol intake: current alcohol intake frequency: holidays/special occasions only Alcohol type: beer details: social caffeine: Yes Type: coffee Number of servings: 1 ROS ROS Narrative Constitutional: Reports fatigue and weakness. No fever. HEENT: Reports systems reviewed and no addt'l complaints, except as documented Respiratory/Chest: Dyspnea on exertion. Expectorant productive cough CVS: Denies chest pain pressure or tightness. Gastrointestinal: Chronic umbilical hernia status postrepair but recurrent. Denies coffee ground emesis, hematemesis or vomiting Genitourinary: Denies burning urination or new urinary tract symptoms Musculoskeletal: Denies acute joint pain or limited range of motion. No acute injury Neurologic: Denies seizure-like symptoms. No acute strokelike symptoms. skin: No ulcer. No rash Endocrinology: Reports systems reviewed and no addt'l complaints, except as documented Hematologic/Lymphatic: Reports systems reviewed and no addt'l complaints, except as documented Rest 14 ROS are negative except as mentioned in HPI Vital Signs Vital Signs Vital Signs: 01/21/24 14:53 01/21/24 16:23 01/21/24 16:44 Temperature 97.4 F L 98.8 F Temperature Source Temporal Temporal Pulse Rate 75 75 Respiratory Rate 16 19 H Respiratory Effort Normal Respiratory Depth Normal Respiratory Pattern Normal Blood Pressure 113/61 113/61 Blood Pressure Mean 78 78 Pulse Ox 97 94 Oxygen Delivery Method Room Air 01/21/24 17:04 01/21/24 18:00 Temperature 98.9 F Temperature Source Temporal Pulse Rate 76 72 Respiratory Rate 23 H 19 H Respiratory Effort Respiratory Depth Respiratory Pattern Blood Pressure 112/78 Blood Pressure Mean 89 Pulse Ox 91 96 Oxygen Delivery Method Room Air Room Air Weight Weight: 230 lb 13.184 oz Body Mass Index (BMI) 31.3 Physical Exam Narrative General: Alert, Oriented x3, Cooperative HEENT: Atraumatic, PERRLA, EOMI, Normocephalic Oral: Oral mucosa dry. No Gingival or Mucosal Lesions/ Ulcerations Neck: Supple, No JVD, Negative Carotid Bruits Chest wall/Lungs: Air entry diminished in bilateral lung bases. Fine right basilar crepitation Cardiovascular: Irregular rhythm, Normal S1, Normal S2, artificial valve metallic click Abdomen: Bowel Sounds Present, Soft, Non Tender, Non-Distended : No dysuria. No renal angle tenderness. No suprapubic tenderness. Extremities: No edema, Capillary Refill Less than 3 Seconds Skin: No rashes, No breakdown Musculoskeletal: No Tenderness to Palpation of Joints or Extremities Neurological: Cranial nerves II-XII grossly intact, DTR 2+/4. No acute focal neurological deficit. Psych/Mental Status: Normal Affect, Appropriate. Results Lab / Micro Data 01/21/24 16:49 01/21/24 16:49 Labs: Laboratory Results - last 24 hr 01/21/24 16:49: WBC 10.2, RBC 4.20 L, Hgb 12.9 L, Hct 38.6 L, MCV 91.9, MCH 30.7, MCHC 33.4, RDW Std Deviation 47.9 H, RDW Coeff of Rich 14.1, Plt Count 212, MPV 11.2, Immature Gran % (Auto) 0.700, Neut % (Auto) 74.0 H, Lymph % (Auto) 6.6 L, [place] % (Auto) 15.2 H, Eos % (Auto) 2.9, Baso % (Auto) 0.6, Absolute Neuts (auto) 7.5, Absolute Lymphs (auto) 0.67 L, Nucleated RBC % 0, Differential Comment SCANNED, PT 23.6 H, INR 2.1, Sodium 133 L, Potassium 4.4, Chloride 103, Carbon Dioxide 26.0, Anion Gap 4 L, BUN 19 H, Creatinine 1.04, Estim Creat Clear Calc 73.23, Est GFR (MDRD) Af Amer 89, Est GFR (MDRD) Non-Af 73, BUN/Creatinine Ratio 18.3, Glucose 105, Calcium 8.8, Troponin I High Sens 7 Imaging Radiology Impression Chest X-Ray 01/21/24 17:33 IMPRESSION: Right basilar infiltrate and effusion. Electronically Signed: Matias Jules DO at 18:41 EDT , Assessment & Plan Assessment/Plan (1) Bacteremia: (2) Pneumonia: PLAN: Plan This is 70-year-old gentleman came to ED for positive blood culture and staph bacteremia 1. Recent symptomatic right lower lobe pneumonia with history of bacteremia: Patient is being admitted in PCU. Blood culture shows positive of Staph aureus but culture sensitivity pending therefore unclear MRSA or MSSA. Patient was last admitted in June 2023 for septic shock due to MSSA bacteremia and UTI. At that time MARIAA was done which showed EF 50% with a stable appearing mechanical AV apparatus. There was aortic valve vegetation on the noncoronary cusp measuring 1.1 x 0.7 cm that was freely mobile and consistent with vegetation in the subaortic valvular region. Mild 1+ eccentric MR. Mild TR. EF 40-45 %. Patient was transferred to ICU and was treated with Ancef 2 g IV 8 hourly, gentamicin 60 mg IV every 8 hourly as per ID recommendation. The patient said he was discharged from [facility] without operative management. Patient is started on IV vancomycin and IV ceftriaxone. ID is consulted. 2D echo is ordered for tomorrow AM. Urinary antigens ordered. Patient was negative for SARS-CoV-2, flu and RSV. 2. AV valve surgery in 1996, mechanical AV valve, [facility] 2004, pulmonic valve replacement in 1996 chronic A-fib: Previous EKG of July 2023 shows A-fib with RVR, PVC, RBBB, QTc 529 ms. Repeat EKG ordered. Patient on metoprolol. Continue warfarin INR is 2.1. 3. 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 Patient does not show signs and symptoms of acute heart failure. Continue home cardiac medications metoprolol and warfarin. 3. Mild anemia of chronic disease: H&H 12.9/38%. MCV 91%. Platelet count 200,000. Continue PPI. Patient has history of esophageal ulcer that was clipped in [facility] in April 2021. On ferrous sulfate and ascorbic acid continued. 4. Dyslipidemia: On statin. 5. Other chronic comorbidities include anxiety, depression, PTSD and insomnia: Home medication reconciliation done DVT prophylaxis: Patient on warfarin. INR 2.1. Therapeutic. Clinical Impression(s) from Imaging Studies Chest X-Ray 01/21/24 17:33 IMPRESSION: Right basilar infiltrate and effusion. Laboratory Results 01/21/24 16:49: WBC 10.2, RBC 4.20 L, Hgb 12.9 L, Hct 38.6 L, MCV 91.9, MCH 30.7, MCHC 33.4, RDW Std Deviation 47.9 H, RDW Coeff of Rich 14.1, Plt Count 212, MPV 11.2, Immature Gran % (Auto) 0.700, Neut % (Auto) 74.0 H, Lymph % (Auto) 6.6 L, [place] % (Auto) 15.2 H, Eos % (Auto) 2.9, Baso % (Auto) 0.6, Absolute Neuts (auto) 7.5, Absolute Lymphs (auto) 0.67 L, Nucleated RBC % 0, Differential Comment SCANNED, PT 23.6 H, INR 2.1, Sodium 133 L, Potassium 4.4, Chloride 103, Carbon Dioxide 26.0, Anion Gap 4 L, BUN 19 H, Creatinine 1.04, Estim Creat Clear Calc 73.23, Est GFR (MDRD) Af Amer 89, Est GFR (MDRD) Non-Af 73, BUN/Creatinine Ratio 18.3, Glucose 105, Calcium 8.8, Troponin I High Sens 7
--- NOTE | 2024-01-21 20:42 | EKG12_ITS ---
Test Reason : AFIB Blood Pressure : / mmHG Vent. Rate : 099 BPM Atrial Rate : 000 BPM P-R Int : 000 ms QRS Dur : 160 ms QT Int : 404 ms P-R-T Axes : 000 -47 048 degrees QTc Int : 518 ms Atrial fibrillation Left axis deviation Right bundle branch block Abnormal ECG When compared with ECG of 21-JAN-2024 16:45, MANUAL COMPARISON REQUIRED, DATA IS UNCONFIRMED Confirmed by GALEN TORRES, BAR ([id number]), primer expeditor and drier MELISSA SOLORZANO ([id number]) on 01/25/2024 7:22:25 AM Referred By: Confirmed By:CÉSAR AARON MD
--- NOTE | 2024-01-21 20:47 | ECHOD_ITS ---
Reason For Study: ENDOCARDITIS Procedure This was a 2D Doppler, Color Flow transthoracic echocardiogram. Exam performed portable in patient room. Left Ventricle Normal LV size. The estimated ejection fraction is 55 %. Unable to assess diastolic dysfunction. No regional wall motion abnormalities noted. Right Ventricle Normal RV size. Normal systolic function. Atria There is moderate biatrial dilatation. No doppler evidence for ASD. Mitral Valve There is no mitral valve stenosis. Trivial mitral valve insufficiency. Tricuspid Valve There is no tricuspid stenosis. Trivial tricuspid valve insufficiency. Pulmonary artery systolic pressure is 45 mmHg. Aortic Valve Stable appearing mechanical aortic valve apparatus. Pulmonic Valve There is no pulmonic valvular stenosis. Mild (1+) pulmonic valve insufficiency. Great Vessels Normal aortic root. Pericardium/Pleural No pericardial effusion. MMode/2D Measurements & Calculations LVIDd: 5.1 cm IVSd: 1.4 cm LVOT diam: 2.1 cm LVIDs: 3.6 cm LVPWd: 1.0 cm LVOT area: 3.4 cm2 RVDd: 5.3 cm FS: 30.6 % Ao root diam: 3.3 cm LAV(MOD-bp): 84.2 ml LVAd ap4: 25.9 cm2 LAV(MOD-bp) Indexed: 37.6 ml/m2 LVLd ap4: 7.2 cm LAV(MOD-sp2): 75.4 ml EDV(MOD-sp4): 76.8 ml LAV(MOD-sp4): 82.3 ml EDV(sp4-el): 78.7 ml LVAs ap4: 17.3 cm2 LVLs ap4: 6.6 cm ESV(MOD-sp4): 38.9 ml ESV(sp4-el): 38.3 ml EF(MOD-sp4): 49.3 % EF(sp4-el): 51.4 % LVAd ap2: 26.8 cm2 SV(MOD-sp4): 37.9 ml SV(MOD-sp2): 41.2 ml LVLd ap2: 7.2 cm EDV(MOD-sp2): 82.8 ml EDV(sp2-el): 84.9 ml LVAs ap2: 18.1 cm2 LVLs ap2: 6.6 cm ESV(MOD-sp2): 41.6 ml ESV(sp2-el): 42.3 ml EF(MOD-sp2): 49.8 % SV(sp4-el): 40.5 ml LA dimension(2D): 5.4 cm LA A4 area: 25.9 cm2 RA A4 area: 24.6 cm2 TAPSE: 1.6 cm Time Measurements MV dec time: 0.16 sec Doppler Measurements & Calculations MV E max darrick: 94.1 cm/sec Lat Peak E' Darrick: 19.3 cm/sec Med Peak E' Darrick: 6.2 cm/sec E/E' lat: 4.9 E/E' med: 15.1 Ao V2 max: 177.4 cm/sec LV V1 max: 88.7 cm/sec SV(LVOT): 55.2 ml Ao max P.7 mmHg LV V1 max P.2 mmHg Ao V2 mean: 134.9 cm/sec LV V1 mean P.1 mmHg Ao mean P.9 mmHg LV V1 mean: 69.6 cm/sec Ao V2 VTI: 29.2 cm LV V1 VTI: 16.1 cm AV (velocity ratio): 0.55 SEVERIANO(I,D): 1.9 cm2 SEVERIANO(V,D): 1.7 cm2 PA V2 max: 229.8 cm/sec TR max darrick: 313.1 cm/sec PA max PG (full): 15.3 mmHg TR max P.2 mmHg PA V2 mean: 170.0 cm/sec PA mean PG (full): 8.8 mmHg ECHO/Echo Complete Interpretation Summary The estimated ejection fraction is 55 %. There is moderate biatrial dilatation. Trivial mitral valve insufficiency. Stable appearing mechanical aortic valve apparatus. Ordering Physician: Zhang Florentino Referring Physician: Donaldo Larson Performed By: Delfina Kunz RDCS
[2024-01-21] MEDS: 0.9% Normal Saline (1000mL) 1,000 ML 75 ML IV (22:34)
[2024-01-21] MEDS: LORazepam 0.5 MG Tablet PO (22:40)
[2024-01-21] MEDS: Metoprolol Tartrate 50 MG Tablet PO (22:40)
[2024-01-21] MEDS: MELATONIN 10 MG TABLET PO (22:40)
[2024-01-21] MEDS: Ceftriaxone 1 GM/50 ML BAG IV (22:53)
[2024-01-21] MEDS: Vancomycin HCl 1,500 MG in 0.9% Normal Saline (500mL Bag) 500 ML 250 MG IV (23:26)
[2024-01-22] VITALS (7 sets, daily range): BP systolic 102–111; BP diastolic 55–68; PULSE 72–96; RESP 16–18; TEMP 36.4–37; O2SAT 95–98; BMI 30.5
--- NOTE | 2024-01-22 00:01 | PCM.RX.CS ---
Consult Antibiotic Management Pharmacy has been consulted to manage selected antibiotic: Vancomycin Type of Intervention Type of Consult: New start Suspected Infection Suspected Infection: Bacteremia Labs Labs: Sodium 133 mmol/L (136-145) L 01/21/24 16:49 Potassium 4.4 mmol/L (3.5-5.1) 01/21/24 16:49 Chloride 103 mmol/L (98-107) 01/21/24 16:49 Carbon Dioxide 26.0 mmol/L (21.0-32.0) 01/21/24 16:49 Anion Gap 4 (5-15) L 01/21/24 16:49 BUN 19 mg/dL (7-18) H 01/21/24 16:49 Creatinine 1.04 mg/dL (0.70-1.30) 01/21/24 16:49 Est GFR (MDRD) Af Amer 89 mL/min (>60) 01/21/24 16:49 Est GFR (MDRD) Non-Af 73 mL/min (>60) 01/21/24 16:49 BUN/Creatinine Ratio 18.3 RATIO (10-20) 01/21/24 16:49 Glucose 105 mg/dL (74-106) 01/21/24 16:49 Dosing Weight Weight used for dosin kg Estimated Creatinine Clearance Estimated Creatinine Clearance: 73 Goal Trough Goal Trough: 15-20 mcg/mL Pharmacy Plan for Drug Dosing Pharmacy Plan for Drug Dosing: Pharmacy Service will continue to monitor and adjust dosing as required. Follow-Up Labs Follow-Up Labs: Trough: Vancomycin Date/Time Labs Ordered Labs to be done on [date and time ordered]: 01/23/24 @1100
--- NOTE | 2024-01-22 02:53 | CPS ---
Pt had a bad coughing spell. wheezing audibly and o2 sats were in the 80s on room air. 3.5 L spo2 97, pt less anxious on oxygen.
[2024-01-22 06:38] LABS: M R Staph aureus DNA By PCR Negative (Negative); Probe Check PASS; Specimen Processing Control PASS
[2024-01-22 07:11] LABS: Absolute Lymphocyte Count 0.47 X10^3/uL (0.83-4.51); Absolute Neutrophil Count 17.8 X10^3/uL (2.0-7.7); Basophil# 0.09 X10^3/uL; Basophil% 0.4 % (0-1); Eosinophil# 0.13 X10^3/uL; Eosinophils% 0.6 % (0-5); Hematocrit 39.8 % (40-54); Hemoglobin 13.2 g/dL (13.0-16.5); Lymphocyte # 0.47 X10^3/ul (0.83-4.51); Lymphocyte % 2.2 % (19-41); Mean Corp Hgb Conc 33.2 g/dL (32-36); Mean Corpuscular Hgb 30.3 pg (27.0-32.0); Mean Corpuscular Volume 91.5 fL (80-94); Mean Platelet Vol. 10.3 fl (6.2-12.0); Monocyte# 2.15 X10^3/uL; Monocyte% 10.3 % (0-10); NRBC Flagged by Analyzer 0 % (0-5); Neutrophil # 17.84 X10^3/uL (2.7-7.7); Neutrophil % 85.2 % (47-70); POSITIVE DIFFERENTIAL YES; Platelet Count 198 K/mm3 (150-450); RBC Distribution Width CV 14.1 % (11.6-14.6); RBC Distribution Width SD 47.4 fl (35.1-43.9); Red Blood Count 4.35 M/mm3 (4.6-6.2)
[2024-01-22 07:13] LABS: Differential Indicated SCAN CRITERIA MET
[2024-01-22 07:16] LABS: International Normalized Ratio 2.5; Prothrombin Time (Protime)PT. 26.6 SECONDS (11.7-14.9)
[2024-01-22 07:51] LABS: Anion Gap 7 (5-15); BUN 19 mg/dL (7-18); BUN/Creat Ratio 17.3 RATIO (10-20); Calcium,Total 8.7 mg/dL (8.5-10.1); Chloride 104 mmol/L (98-107); EST Glomerular Filtration Rate 69 mL/min (>60); Est Glom Filt Rate - Afr Amer 83 mL/min (>60); Estimated Creatinine Clearance 68.42 ml/min; Glucose 102 mg/dL (74-106); Potassium 4.2 mmol/L (3.5-5.1); Sodium Level 133 mmol/L (136-145)
[2024-01-22 09:51] LABS: Pathologist Review May foll
[2024-01-22] MEDS: DULoxetine Hcl 60 MG Capsule PO (10:11)
[2024-01-22] MEDS: LORazepam 0.5 MG Tablet PO ×2 (10:11→23:03)
[2024-01-22] MEDS: Metoprolol Tartrate 50 MG Tablet PO ×2 (10:12→22:32)
[2024-01-22] MEDS: Ascorbic Acid 500 MG Tablet PO (10:13)
--- NOTE | 2024-01-22 11:01 | CON.PCM.ID_ITS ---
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 Will consult pulm, order thoracentesis. Echo pending, will need MARIAA. Repeat bcx today. Sputum pending. UAgs neg. Bcx pcr showing MSSA. Will change to vanc/cefazolin for better mssa coverage. Will follow, thank you (2) Pleural effusion, right: (3) Pneumonia: (4) History of mechanical aortic valve replacement: (5) History of endocarditis: HPI Consult Data Date of Consult: 01/22/24 HPI Narrative Reason for Consultation: bacteremia HPI Narrative: TRAMAINE MAST, is a 78 M with prior [facility] AV valve replacement, admitted 06/2023 with MSSE prosthetic valve endocarditis, transferred to [facility] for surgical evaluation. Completed iv abx, then changed to lifelong keflex for suppression. Over past few weeks, reports progressive fatigue, some cough. Sx worsened over past week, came to ED 01/18, started on azithro/augmentin. Some fever and chills. No new back pain or joint pain. Producing yellow/white thick phlegm. No n/v/d. Called back to ED due to (+) Bcx. Admitted on vanc/ceftriaxone. Feeling a little better, does not wear O2 at home. Full ROS performed and neg except as noted above. [facility] Medical History History of Clostridioides difficile colitis Crohn's disease Paroxysmal atrial fibrillation with RVR History of atrial fibrillation History of endocarditis Hiatal hernia Incisional hernia Diverticulitis Scarlet fever Kidney stones Irregular heart beat Anemia Anemia Pseudomembranous colitis Acute lower GI bleeding manager terminal current use of anticoagulant senior care current use of anticoagulant Pure hypercholesterolemia Essential hypertension Other usp (current) drug therapy Nonrheumatic aortic (valve) insufficiency Nonrheumatic pulmonary valve insufficiency Palpitations manager terminal (current) use of anticoagulants Gastrointestinal bleed Post traumatic stress disorder Panic disorder Anxiety Streptococcal endocarditis Colovesical fistula Sigmoid diverticulitis E coli bacteremia Fever Pneumaturia Gram-negative bacteremia Acute cystitis Acute diverticulitis Anxiety disorder History of endocarditis Home Medications ?Medication ?Instructions ?Recorded ?Last Taken ?Type ferrous sulfate 325 mg (65 mg 325 mg PO LUNCH #30 tabs 05/04/23 Unknown Rx iron) tablet (FeroSul) melatonin 10 mg capsule 10 mg PO QHS SLEEP 30 days #0 caps 05/04/23 04/24/23 Rx lorazepam 0.5 mg tablet 0.5 mg PO BID 05/21/23 01/21/24 History warfarin 1 mg tablet 1 mg PO .COMPLEX BLOOD THINNER 08/02/23 01/21/24 Rx #180 tabs warfarin 5 mg tablet 5 mg PO .COMPLEX BLOOD THINNER #90 08/02/23 01/21/24 Rx tabs metoprolol tartrate 50 mg tablet 50 mg PO BID BLOOD PRESSURE #180 12/17/23 01/21/24 Rx TABLETS duloxetine 60 mg capsule,delayed 60 mg PO DAILY DEPRESSION #90 caps 12/24/23 01/21/24 Rx release amoxicillin 875 mg-potassium 1 tab PO Q12H 10 days #20 tabs 01/18/24 01/21/24 Rx clavulanate 125 mg tablet ascorbic acid (vitamin C) 500 mg 500 mg PO DAILY 01/19/24 Unknown History tablet (C-500) cyanocobalamin (vitamin B-12) 100 mcg .Route 01/19/24 Unknown History mcg/mL injection solution cephalexin 500 mg capsule 1,000 mg PO TID 01/21/24 01/21/24 History Allergy/AdvReac Type Severity Reaction Status Date / Time fentanyl Allergy Severe Other Verified 01/21/24 14:56 levofloxacin AdvReac Severe Passed out Verified 01/21/24 14:56 Family History Father CAD (coronary artery disease) Surgical History History of prosthetic heart valve History of colonoscopy (~04/2023) History of mechanical aortic valve replacement History of herniorrhaphy History of colon resection H/O pulmonic valve replacement Social History Smoking Status: Former smoker how long ago did patient quit smokin years ago alcohol intake: current alcohol intake frequency: holidays/special occasions only Alcohol type: beer details: social caffeine: Yes Type: coffee Number of servings: 1 Physical Exam Const alert, oriented x3 and no apparent distress General Appearance: cooperative HEENT normocephalic and head/scalp atraumatic Eyes PERRL and EOMs intact bilaterally Neck supple and No nodes Resp Resp Narrative: Decreased R base Cardio regular rate and regular rhythm Heart Sounds: click and murmur GI soft to palpation, non-tender and non-distended Extremity Extremity Narrative: No focal joint pain/swelling, no spine tenderness on palpation General Extremity: Negative for edema Skin Skin Narrative: No splinter hemorrhages on hands Neuro CN's II-XII intact bilaterally Lab / Micro Data Attestation: I reviewed the patient's lab results. 01/22/24 06:43 01/22/24 06:43 Labs: Laboratory Results - last 24 hr 01/21/24 16:49: WBC 10.2, RBC 4.20 L, Hgb 12.9 L, Hct 38.6 L, MCV 91.9, MCH 30.7, MCHC 33.4, RDW Std Deviation 47.9 H, RDW Coeff of Rich 14.1, Plt Count 212, MPV 11.2, Immature Gran % (Auto) 0.700, Neut % (Auto) 74.0 H, Lymph % (Auto) 6.6 L, Houghton % (Auto) 15.2 H, Eos % (Auto) 2.9, Baso % (Auto) 0.6, Absolute Neuts (auto) 7.5, Absolute Lymphs (auto) 0.67 L, Nucleated RBC % 0, Differential Comment SCANNED, PT 23.6 H, INR 2.1, Sodium 133 L, Potassium 4.4, Chloride 103, Carbon Dioxide 26.0, Anion Gap 4 L, BUN 19 H, Creatinine 1.04, Estim Creat Clear Calc 73.23, Est GFR (MDRD) Af Amer 89, Est GFR (MDRD) Non-Af 73, BUN/Creatinine Ratio 18.3, Glucose 105, Calcium 8.8, Troponin I High Sens 7 01/21/24 22:58: MRSA (PCR) Negative 01/22/24 06:43: WBC 21.0 H, RBC 4.35 L, Hgb 13.2, Hct 39.8 L, MCV 91.5, MCH 30.3, MCHC 33.2, RDW Std Deviation 47.4 H, RDW Coeff of Rich 14.1, Plt Count 198, MPV 10.3, Immature Gran % (Auto) 1.300 H, Neut % (Auto) 85.2 H, Lymph % (Auto) 2.2 L, Houghton % (Auto) 10.3 H, Eos % (Auto) 0.6, Baso % (Auto) 0.4, Absolute Neuts (auto) 17.8 H, Absolute Lymphs (auto) 0.47 L, Nucleated RBC % 0, Diff Path Review October, PT 26.6 H, INR 2.5, Sodium 133 L, Potassium 4.2, Chloride 104, Carbon Dioxide 22.0, Anion Gap 7, BUN 19 H, Creatinine 1.10, Estim Creat Clear Calc 68.42, Est GFR (MDRD) Af Amer 83, Est GFR (MDRD) Non-Af 69, BUN/Creatinine Ratio 17.3, Glucose 102, Calcium 8.7 Micro: Microbiology 01/22/24 00:49 Urine, Clean Catch Legionella Antigen - Final 01/22/24 00:49 Urine, Clean Catch Streptococcus pneumoniae Antigen (M - Final Imaging Radiology Impression Chest X-Ray 01/21/24 17:33 IMPRESSION: Right basilar infiltrate and effusion. Electronically Signed: Matias Jules DO at 18:41 EDT Reading Location ID and State: [facility] / [place] Tel [phone], Service support ,
--- NOTE | 2024-01-22 11:30 | CASEMGMT ---
IVY FERRERA Assessment: Face to Face with pt for initial transition planning/care coordination assessment. IVY FERRERA introduced self and role at [facility], pt voices understanding and consents to assessment. Pt is A&O x4 and answers all questions appropriately at this time. Pt sitting up in chair in no distress. Care providers, pharmacy, and demographics verified/updated. Admitting Dx: Yusef Reed. Strata Score:3 PCP: Marsha Specialists: Denies Preferred Pharmacy: [facility] Insurance: [facility], [employer] Prescription Benefit: yes LNOK: Daughter Living Arrangements: Pt lives alone in a 2 story home with 6 steps to enter. Pt reports I at home. Pt states has a girlfriend that is able to assist at home if needed. Transportation: Pt drives self and denies concerns with transportation. DME: Denies HHC/SNF: States previously used HHC agency, cannot recall name of agency. Pt states no concerns with going home at time of dc. Pt provided verbal list of local DME companies, pt preference [employer] if has O2 needs at time of DC. Pt states no further concerns/needs. CM to follow. Advised pt to ask CM if any further question/concerns/needs arise, voices understanding. Pt Goal: Home Plan: Home, IVY FERRERA to follow for O2 needs and plan of care. Sridevi HAYNES CM
[2024-01-22 11:42] LABS: AST(SGOT) 65 U/L (15-37); Alanine Aminotransfer ALT/SGPT 41 U/L (16-61); Albumin, Serum 1.7 g/dL (3.2-5.0); Alkaline Phosphatase 186 U/L (45-117); Bilirubin, Direct 0.59 mg/dL (0.00-0.30); Globulin 5.1 g/dL (2.2-4.2); LDH 349 U/L (87-241); Protein, Total 6.8 g/dL (6.4-8.2)
[2024-01-22] MEDS: Ferrous Sulfate 325 MG Tablet PO (13:07)
[2024-01-22] MEDS: 0.9% Normal Saline (250mL Bag) 250 ML 15 ML IV ×2 (15:19→18:24)
--- NOTE | 2024-01-22 15:50 | RAD_ITS ---
STUDY: X-RAY CHEST REASON FOR EXAM: Male, 78 years old. verify picc line placement w/ hx afib TECHNIQUE: Single frontal view of the chest. COMPARISON: Chest x-ray January 21, 2024. FINDINGS: New PICC line on the right terminates in the SVC.. Sternotomy wires. Prosthetic heart valve. Right lower lobe airspace disease. Moderate right pleural effusion. Normal size heart. Normal mediastinum and corey. Normal visualized pulmonary arteries. Normal visualized aortic arch and descending thoracic aorta. Normal visualized thoracic spine. Normal visualized ribs, clavicles, and shoulders. There is no demonstrated abnormality of the visualized soft tissue structures of the upper abdomen. RAD/Chest 1 View (Portable) IMPRESSION: New PICC line in the right terminates in the SVC. Moderate right lower lobe airspace disease and effusion unchanged. Sternotomy and prosthetic heart valve. Electronically Signed: Kelvin Goddard MD at 18:07 EDT ,
--- NOTE | 2024-01-22 17:48 | NURSING ---
spoke with Geremias to expedite the usage of the Picc line, states she will get it expedited.
--- NOTE | 2024-01-22 17:55 | PCM.PN.HOSP ---
Reason for Visit Reason for Visit: Diagnoses Pneumonia, unspecified organism (01/21/24) Pleural effusion, not elsewhere classified (01/21/24) Bacteremia (01/21/24) Personal history of other diseases of the circulatory system (01/21/24) Presence of prosthetic heart valve (01/21/24) Subjective Subjective Patient feeling fair today overall, breathing improving, no new focal complaints Objective Data Objective Data Vital Signs: Vital Signs Temp Pulse Resp BP Pulse Ox O2 Del Method O2 Flow Rate 98.6 F 73 18 102/55 L 95 Room Air 3 01/22/24 13:11 01/22/24 13:11 01/22/24 13:11 01/22/24 13:11 01/22/24 13:11 01/22/24 13:11 01/22/24 03:10 Oxygen Flow Rate (L/min) 3 Oxygen Delivery Method Room Air Weight: 102.1 kg Body Mass Index (BMI) 30.5 Intake & Output: Intake and Output for Last 24 Hours 01/20/24 01/21/24 01/22/24 23:59 23:59 23:59 Intake Total 150 / 150 1532 / 1532 Output Total 200 / 200 800 / 800 Balance -50 / -50 732 / 732 Lab / Micro Data 01/22/24 06:43 01/22/24 06:43 Labs: Laboratory Results - last 24 hr 01/21/24 22:58: MRSA (PCR) Negative 01/22/24 06:43: WBC 21.0 H, RBC 4.35 L, Hgb 13.2, Hct 39.8 L, MCV 91.5, MCH 30.3, MCHC 33.2, RDW Std Deviation 47.4 H, RDW Coeff of Rich 14.1, Plt Count 198, MPV 10.3, Immature Gran % (Auto) 1.300 H, Neut % (Auto) 85.2 H, Lymph % (Auto) 2.2 L, Andrews % (Auto) 10.3 H, Eos % (Auto) 0.6, Baso % (Auto) 0.4, Absolute Neuts (auto) 17.8 H, Absolute Lymphs (auto) 0.47 L, Nucleated RBC % 0, Diff Path Review October, PT 26.6 H, INR 2.5, Sodium 133 L, Potassium 4.2, Chloride 104, Carbon Dioxide 22.0, Anion Gap 7, BUN 19 H, Creatinine 1.10, Estim Creat Clear Calc 68.42, Est GFR (MDRD) Af Amer 83, Est GFR (MDRD) Non-Af 69, BUN/Creatinine Ratio 17.3, Glucose 102, Calcium 8.7, Total Bilirubin 1.20 H, Direct Bilirubin 0.59 H, AST 65 H, ALT 41, Alkaline Phosphatase 186 H, Lactate Dehydrogenase 349 H, Total Protein 6.8, Albumin 1.7 L, Globulin 5.1 H Micro: Microbiology 01/22/24 Unknown Sputum, Expectorated/Coughed Gram Stain - Final 01/22/24 00:49 Urine, Clean Catch Legionella Antigen - Final 01/22/24 00:49 Urine, Clean Catch Streptococcus pneumoniae Antigen (M - Final Radiography Diagnostic Testing: Radiology Impression Chest X-Ray 01/21/24 17:33 IMPRESSION: Right basilar infiltrate and effusion. Electronically Signed: Matias Jules DO at 18:41 EDT Reading Location ID and State: [address] [place] [address] Tel [phone], Service support , Echocardiogram 01/21/24 20:47 Interpretation Summary The estimated ejection fraction is 55 %. There is moderate biatrial dilatation. Trivial mitral valve insufficiency. Stable appearing mechanical aortic valve apparatus. Ordering Physician: Zhang Florentino Referring Physician: Donaldo Larson Performed By: Delfina Kunz RDCS Physical Exam Narrative General: Alert, oriented, no apparent distress HEENT: Atraumatic, normocephalic Eyes: Anicteric, normal conjunctiva, extraocular movements grossly intact Neck: Supple Respiratory: Somewhat diminished bilaterally but more so right lower lobe, no significant increased work of breathing Cardiovascular: Regular rate, AV mechanical valve noted GI: Soft, nontender, nondistended Extremities: No significant pitting edema Musculoskeletal: Moving all extremities Neuro: No overt focal neurological deficits Skin: No rashes appreciated Psych: Cooperative Assessment & Plan Assessment/Plan (1) Bacteremia: (2) Pneumonia: PLAN: Plan # MSSA bacteremia -Seen on cultures from 01/19/2024 -Has history of MSSA prosthetic valve endocarditis 06/2023 and has been taking Keflex for suppression since that time, per patient he went to [facility] but refused surgery -ID consulted -Patient on vancomycin and cefazolin -TTE did not report any vegetations, will need MARIAA, given patient to have thoracentesis unclear optimal timing -Replete blood cultures ordered # Recent symptomatic right lower lobe pneumonia and effusion -Patient was here 01/18 diagnosed with pneumonia and discharged on Augmentin and Zithromax. Still has cough productive of sputum and shortness of breath on exertion, has been sick roughly the past 5 days -Blood culture obtained at the time came back with staph therefore patient called to come back to ED as above -Continue antibiotics -Pulmonology consulted and thoracentesis ordered -Presently on room air # Mechanical aortic valve on Coumadin/A-fib -Remote history of aortic valve 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 -Subsequently, status post a modified Bentyl/Ross procedure using a 25 mm [place] Hemashield composite graft (2001) for revision -Goal 2.5-3.5 -INR 2.5, patient has remained on home Coumadin -Previously has required bridging with needed to be taken off of his Coumadin -INR 2.5 today, continue to monitor -Continue beta-edith # Depression and anxiety -Continue Cymbalta, Ativan #DVT ppx: Therapeutic on Coumadin Chantale Chang MD Time spent in the patient's overall evaluation,decision-making process, review of diagnostic data, adjustment of management, discussion with other providers, nursing nursing and ancillary staff involved in patient's care documentation, 38 minutes Charges/Coding Visit Charges Inpatient E&M: 15370 [facility] Hosp L2
[2024-01-22] MEDS: Cefazolin 2 GM in 0.9% Normal Saline (100mL Bag) 100 ML IV ×2 (18:25→18:58)
[2024-01-22] MEDS: Vancomycin HCl 1,500 MG in 0.9% Normal Saline (500mL Bag) 500 ML 250 MG IV (20:00)
[2024-01-22] MEDS: MELATONIN 10 MG TABLET PO (22:27)
[2024-01-23] VITALS (7 sets, daily range): BP systolic 100–136; BP diastolic 65–80; PULSE 71–83; RESP 16–18; TEMP 36.1–36.7; O2SAT 93–100; BMI 30.7
[2024-01-23] MEDS: Cefazolin 2 GM in 0.9% Normal Saline (100mL Bag) 100 ML IV ×3 (05:37→22:03)
[2024-01-23] MEDS: Vancomycin HCl 1,500 MG in 0.9% Normal Saline (500mL Bag) 500 ML 250 MG IV ×2 (06:43→20:01)
[2024-01-23 07:23] LABS: Absolute Neutrophil Count 7.1 X10^3/uL (2.0-7.7); Basophil# 0.06 X10^3/uL; Basophil% 0.6 % (0-1); Eosinophil# 0.33 X10^3/uL; Eosinophils% 3.5 % (0-5); Hematocrit 37.1 % (40-54); Hemoglobin 12.1 g/dL (13.0-16.5); Lymphocyte % 6.5 % (19-41); Mean Corp Hgb Conc 32.6 g/dL (32-36); Mean Corpuscular Hgb 30.1 pg (27.0-32.0); Mean Corpuscular Volume 92.3 fL (80-94); Monocyte# 1.13 X10^3/uL; Monocyte% 12.2 % (0-10); NRBC Flagged by Analyzer 0 % (0-5); Neutrophil # 7.12 X10^3/uL (2.7-7.7); Neutrophil % 76.6 % (47-70); POSITIVE DIFFERENTIAL YES; Platelet Count 163 K/mm3 (150-450); RBC Distribution Width CV 14.1 % (11.6-14.6); RBC Distribution Width SD 47.9 fl (35.1-43.9); Red Blood Count 4.02 M/mm3 (4.6-6.2); White Blood Count 9.3 K/mm3 (4.4-11.0)
--- NOTE | 2024-01-23 07:49 | PCM.PN.HOSP ---
Reason for Visit Reason for Visit: Diagnoses Pneumonia, unspecified organism (01/21/24) Pleural effusion, not elsewhere classified (01/21/24) Bacteremia (01/21/24) Personal history of other diseases of the circulatory system (01/21/24) Presence of prosthetic heart valve (01/21/24) Subjective Subjective Patient is a 78-year-old gentleman with recent diagnosis of pneumonia discharged on Augmentin and Zithromycin who presented to the emergency department after blood cultures which have been obtained came back positive for methicillin sensitive Staph aureus admitted to a monitored bed for further management Objective Data Objective Data Vital Signs: Vital Signs Temp Pulse Resp BP Pulse Ox O2 Del Method O2 Flow Rate 97.4 F L 76 18 122/65 H 93 Room Air 3 01/23/24 05:00 01/23/24 05:00 01/23/24 05:00 01/23/24 05:00 01/23/24 05:00 01/23/24 05:00 01/22/24 03:10 Oxygen Flow Rate (L/min) 3 Oxygen Delivery Method Room Air Weight: 102.8 kg Body Mass Index (BMI) 30.7 Intake & Output: Intake and Output for Last 24 Hours 01/21/24 01/22/24 01/23/24 23:59 23:59 23:59 Intake Total 150 / 150 2682 / 3082 811.75 / 811.75 Output Total 200 / 200 800 / 800 Balance -50 / -50 1882 / 2282 811.75 / 811.75 Lab / Micro Data 01/23/24 06:49 01/23/24 06:49 Labs: Laboratory Results - last 24 hr 01/22/24 06:43: Diff Path Review October, Sodium 133 L, Potassium 4.2, Chloride 104, Carbon Dioxide 22.0, Anion Gap 7, BUN 19 H, Creatinine 1.10, Estim Creat Clear Calc 68.42, Est GFR (MDRD) Af Amer 83, Est GFR (MDRD) Non-Af 69, BUN/Creatinine Ratio 17.3, Glucose 102, Calcium 8.7, Total Bilirubin 1.20 H, Direct Bilirubin 0.59 H, AST 65 H, ALT 41, Alkaline Phosphatase 186 H, Lactate Dehydrogenase 349 H, Total Protein 6.8, Albumin 1.7 L, Globulin 5.1 H Micro: Microbiology 01/22/24 Unknown Sputum, Expectorated/Coughed Gram Stain - Final 01/22/24 00:49 Urine, Clean Catch Legionella Antigen - Final 01/22/24 00:49 Urine, Clean Catch Streptococcus pneumoniae Antigen (M - Final Radiography Diagnostic Testing: Radiology Impression Echocardiogram 01/21/24 20:47 Interpretation Summary The estimated ejection fraction is 55 %. There is moderate biatrial dilatation. Trivial mitral valve insufficiency. Stable appearing mechanical aortic valve apparatus. Ordering Physician: Zhang Florentino Referring Physician: Donaldo Larson Performed By: Delfina Kunz, CS Chest X-Ray 01/22/24 15:50 IMPRESSION: New PICC line in the right terminates in the SVC. Moderate right lower lobe airspace disease and effusion unchanged. Sternotomy and prosthetic heart valve. Electronically Signed: Kelvin Goddard MD at 18:07 EDT , Physical Exam Narrative GENERAL: cooperative HEENT: Atraumatic; normocephalic EYES; Anicteric, Normal Conjunctiva NECK; supple, normal thyroid, RESPIRATORY: Diminished to auscultation CARDIOVASCULAR: Regular S1 S2, systolic click GI: soft, normoactive bowel sounds, : No Renal angle tenderness; EXTREMITIES: edema, no clubbing, MUSCULOSKELETAL: no muscle wasting NEURO: Awake; no lateralizing signs. SKIN: No Rash PSYCH; Flat affect Assessment & Plan Assessment/Plan (1) Bacteremia: (2) Pneumonia: PLAN: Plan Patient is a 78-year-old gentleman with recent diagnosis of pneumonia discharged on Augmentin and Zithromycin who presented to the emergency department after blood cultures which have been obtained came back positive for methicillin sensitive Staph aureus admitted to a monitored bed for further management 1. MSSA bacteremia ?From cultures obtained on 01/19/2024. Repeat blood cultures so far negative to date. Patient has history of MSSA prosthetic valve endocarditis from June 2023 manage at [facility] surgery was offered patient apparently declined patient is on suppressive therapy with Keflex transthoracic echo obtained so far negative for any vegetation patient was found to have pleural effusion and plan is for patient to undergo thoracocentesis 2. Recent symptomatic right lower lobe pneumonia with suspected pleural effusion ? Patient was discharged on Augmentin and azithromycin pulmonary medicine consulted thoracocentesis ordered 3. 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 Paroxysmal A-fib ? Rate controlled on systemic anticoagulation as stated above 5. Mild hyponatremia ? Monitoring with daily BMPs 6. Depression and anxiety -Continue Cymbalta, Ativan 7. Physical deconditioning ? Requested for PT OT eval and social and political studies professor to assist with discharge planning 8. DVT prophylaxis ? Patient is on Coumadin with a therapeutic INR Time spent in the patient's overall evaluation,decision-making process, review of diagnostic data, adjustment of management, discussion with other providers, nursing nursing and ancillary staff involved in patient's care documentation, 40 minutes Charges/Coding Visit Charges Inpatient E&M: 07509 Subs Hosp L2
[2024-01-23] MEDS: DULoxetine Hcl 60 MG Capsule PO (07:55)
[2024-01-23] MEDS: Metoprolol Tartrate 50 MG Tablet PO ×2 (07:56→22:04)
[2024-01-23] MEDS: Ascorbic Acid 500 MG Tablet PO (07:56)
[2024-01-23] MEDS: LORazepam 0.5 MG Tablet PO ×2 (08:00→22:03)
--- NOTE | 2024-01-23 08:13 | CON.PCM.CC_ITS ---
Assessment & Plan Assessment/Plan (1) Bacteremia: (2) Pleural effusion, right: (3) Pneumonia: PLAN: Plan RECOMMENDATIONS: 1. Proceed with ultrasound-guided thoracentesis as ordered, pending improvement in coagulopathy. 2. Send pleural fluid studies as ordered. 3. Continue antimicrobials per ID recommendations. IMPRESSIONS: 1. MSSA bacteremia with right lower lobe pneumonia/effusion The patient remains clinically stable on antimicrobials per ID recommendations. The patient has a history of a mechanical aortic valve on Coumadin along with atrial fibrillation. At the present time, the patient is scheduled to undergo ultrasound-guided thoracentesis when his coagulopathy has resolved. Pleural fluid is to be sent for evaluation, as ordered. 2. History of mechanical aortic valve on Coumadin/atrial fibrillation/hypertension/hyperlipidemia Complicates care, management, recovery and prognosis. Recommend holding Coumadin for now and transitioning to weight-based heparin infusion to facilitate completion of thoracentesis. This note was generated with [employer] dictation software. It may contain incorrect words, spelling, and punctuation that were not noted in checking the note before signing. HPI Consult Data Date of Consult: 01/23/24 HPI Narrative Reason for Consultation: Pleural effusion HPI Narrative: The patient is a 78-year-old male, with a history as outlined below, who presented to the emergency department via EMS on January 20 with positive blood cultures. The patient had been evaluated in the ED 2 days prior with a fever and cough. His workup demonstrated findings concerning for underlying pneumonia. Therefore, the patient was discharged home from the emergency department in a stable manner on antimicrobials. Blood cultures collected at that time were subsequently found to be positive for Staph aureus. Therefore, the patient was contacted and advised to return to the hospital for management. The patient does have a history of aortic valve disease status post replacement with superimposed hypertension, paroxysmal atrial fibrillation and hyperlipidemia. The patient is medically managed with Coumadin on an outpatient basis. On presentation to the emergency department, the patient was documented to be afebrile hemodynamically stable. He was maintaining appropriate oxygen saturations on room air. Laboratory evaluation revealed a white blood cell count of 10,000. INR was elevated at 2.1. Creatinine was within normal limits. Chest imaging continues to demonstrate a right lower lobe consolidation with associated effusion. The patient was seen in consultation by infectious diseases after being admitted to the hospital and was placed on Vanco and cefazolin for his MSSA bacteremia. Surface echocardiogram completed on January 21 demonstrated no evidence of any valvular vegetations. 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 current use of anticoagulant Pure hypercholesterolemia Essential hypertension Other care home (current) drug therapy Nonrheumatic aortic (valve) insufficiency Nonrheumatic pulmonary valve insufficiency Palpitations 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) use of anticoagulants Gastrointestinal bleed Post traumatic stress disorder Panic disorder Anxiety Streptococcal endocarditis Colovesical fistula Sigmoid diverticulitis E coli bacteremia Fever Pneumaturia Gram-negative bacteremia Acute cystitis Acute diverticulitis Anxiety disorder History of endocarditis Home Medications ?Medication ?Instructions ?Recorded ?Last Taken ?Type ferrous sulfate 325 mg (65 mg 325 mg PO LUNCH #30 tabs 05/04/23 Unknown Rx iron) tablet (FeroSul) melatonin 10 mg capsule 10 mg PO QHS SLEEP 30 days #0 caps 05/04/23 04/24/23 Rx lorazepam 0.5 mg tablet 0.5 mg PO BID 05/21/23 01/21/24 History warfarin 1 mg tablet 1 mg PO .COMPLEX BLOOD THINNER 08/02/23 01/21/24 Rx #180 tabs warfarin 5 mg tablet 5 mg PO .COMPLEX BLOOD THINNER #90 08/02/23 01/21/24 Rx tabs metoprolol tartrate 50 mg tablet 50 mg PO BID BLOOD PRESSURE #180 12/17/23 01/21/24 Rx TABLETS duloxetine 60 mg capsule,delayed 60 mg PO DAILY DEPRESSION #90 caps 12/24/23 01/21/24 Rx release amoxicillin 875 mg-potassium 1 tab PO Q12H 10 days #20 tabs 01/18/24 01/21/24 Rx clavulanate 125 mg tablet ascorbic acid (vitamin C) 500 mg 500 mg PO DAILY 01/19/24 Unknown History tablet (C-500) cyanocobalamin (vitamin B-12) 100 mcg .Route 01/19/24 Unknown History mcg/mL injection solution cephalexin 500 mg capsule 1,000 mg PO TID 01/21/24 01/21/24 History Allergy/AdvReac Type Severity Reaction Status Date / Time fentanyl Allergy Severe Other Verified 01/21/24 14:56 levofloxacin AdvReac Severe Passed out Verified 01/21/24 14:56 Family History Father CAD (coronary artery disease) Surgical History History of prosthetic heart valve History of colonoscopy (~04/2023) History of mechanical aortic valve replacement History of herniorrhaphy History of colon resection H/O pulmonic valve replacement Social History Smoking Status: Former smoker how long ago did patient quit smokin years ago alcohol intake: current alcohol intake frequency: holidays/special occasions only Alcohol type: beer details: social caffeine: Yes Type: coffee Number of servings: 1 ROS ROS Narrative 10 systems were reviewed with pertinent positives as noted in the HPI above. Physical Exam Const alert and no apparent distress Constitutional Narrative: Sitting in bedside recliner. General Appearance: cooperative HEENT normocephalic and head/scalp atraumatic Eyes PERRL, EOMs intact bilaterally and conjunctivae normal Neck supple General: trachea midline Chest inspection of chest normal Resp normal respiratory effort Auscultation: diminished lung sounds Cardio regular rate and regular rhythm GI normal to inspection, nondistended, normoactive bowel sounds Extremity no clubbing, cyanosis or edema Skin no rashes or lesions noted Neuro CN's II-XII intact bilaterally and no focal motor deficits Psych cooperative and affect normal Lab / Micro Data 01/23/24 06:49 01/22/24 06:43 Labs: Laboratory Results - last 24 hr 01/22/24 06:43: Diff Path Review October, Total Bilirubin 1.20 H, Direct Bilirubin 0.59 H, AST 65 H, ALT 41, Alkaline Phosphatase 186 H, Lactate Dehydrogenase 349 H, Total Protein 6.8, Albumin 1.7 L, Globulin 5.1 H 01/23/24 06:49: WBC 9.3, RBC 4.02 L, Hgb 12.1 L, Hct 37.1 L, MCV 92.3, MCH 30.1, MCHC 32.6, RDW Std Deviation 47.9 H, RDW Coeff of Rich 14.1, Plt Count 163, MPV 10.0, Immature Gran % (Auto) 0.600, Neut % (Auto) 76.6 H, Lymph % (Auto) 6.5 L, [place] % (Auto) 12.2 H, Eos % (Auto) 3.5, Baso % (Auto) 0.6, Absolute Neuts (auto) 7.1, Absolute Lymphs (auto) 0.60 L, Nucleated RBC % 0 Micro: Microbiology 01/22/24 Unknown Sputum, Expectorated/Coughed Gram Stain - Final Imaging Radiology Impression Echocardiogram 01/21/24 20:47 Interpretation Summary The estimated ejection fraction is 55 %. There is moderate biatrial dilatation. Trivial mitral valve insufficiency. Stable appearing mechanical aortic valve apparatus. Ordering Physician: Zhang Florentino Referring Physician: Donaldo Larson Performed By: Delfina Kunz, LOC Chest X-Ray 01/22/24 15:50 IMPRESSION: New PICC line in the right terminates in the SVC. Moderate right lower lobe airspace disease and effusion unchanged. Sternotomy and prosthetic heart valve. Electronically Signed: Kelvin Goddard MD at 18:07 EDT , Charges/Coding Visit Charges Inpatient E&M: 75176 Init Hosp L2
[2024-01-23 08:30] LABS: ALB/GLOB Ratio 0.7 RATIO (0.9-2.4); AST(SGOT) 43 U/L (15-37); Alanine Aminotransfer ALT/SGPT 32 U/L (16-61); Alkaline Phosphatase 169 U/L (45-117); Anion Gap 5 (5-15); BUN 16 mg/dL (7-18); BUN/Creat Ratio 15.4 RATIO (10-20); Calcium,Total 8.7 mg/dL (8.5-10.1); Chloride 104 mmol/L (98-107); Creatinine, Serum 1.04 mg/dL (0.70-1.30); EST Glomerular Filtration Rate 73 mL/min (>60); Est Glom Filt Rate - Afr Amer 89 mL/min (>60); Globulin 4.2 g/dL (2.2-4.2); Glucose 113 mg/dL (74-106); Potassium 3.9 mmol/L (3.5-5.1); Protein, Total 7.2 g/dL (6.4-8.2); Sodium Level 134 mmol/L (136-145)
[2024-01-23 09:07] LABS: Partial Thromboplast Time 43.8 Seconds (24.1-36.2)
[2024-01-23 09:20] LABS: International Normalized Ratio 2.4
[2024-01-23] MEDS: Ferrous Sulfate 325 MG Tablet PO (11:49)
--- NOTE | 2024-01-23 13:43 | PCM.PN.ID ---
Physical Exam Narrative Feeling better, breathing improved, no fever, off O2. 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 Seen by pulm, pending thoracentesis. TTE showed no veg, will order MARIAA. Repeat bcx today. Sputum with rare GNR. UAgs neg. Bcx showing MSSA. Will cont vanc/cefazolin Will follow (2) Pleural effusion, right: (3) Pneumonia: (4) History of mechanical aortic valve replacement: (5) History of endocarditis:
[2024-01-23] MEDS: 0.9% Saline Lock 10 ML Syringe IV (14:26)
[2024-01-23] MEDS: Heparin Injection (Vial) 5,000 UNIT/ML VIAL 4000 UNIT IV (15:48)
[2024-01-23] MEDS: HEPARIN/D5w 25,000 UNITS 25,000 UNITS/250 ML IV.SOLN. 10 UNITS CONT INF (15:54)
[2024-01-23 19:10] LABS: Vancomycin, Trough Level 19.2 ug/mL (5.0-15.0)
--- NOTE | 2024-01-23 19:35 | PCM.RX.CS ---
Consult Antibiotic Management Pharmacy has been consulted to manage selected antibiotic: Vancomycin Type of Intervention Type of Consult: Follow-up Suspected Infection Suspected Infection: Bacteremia Prior Doses of Antibiotics Prior Doses of Antibiotics Received/Current Regimen: 01/21 @ 1999 1500MG 01/23/24 @ 0643 1500MG Labs Labs: Sodium 134 mmol/L (136-145) L 01/23/24 06:49 Potassium 3.9 mmol/L (3.5-5.1) 01/23/24 06:49 Chloride 104 mmol/L (98-107) 01/23/24 06:49 Carbon Dioxide 25.0 mmol/L (21.0-32.0) 01/23/24 06:49 Anion Gap 5 (5-15) 01/23/24 06:49 BUN 16 mg/dL (7-18) 01/23/24 06:49 Creatinine 1.04 mg/dL (0.70-1.30) 01/23/24 06:49 Est GFR (MDRD) Af Amer 89 mL/min (>60) 01/23/24 06:49 Est GFR (MDRD) Non-Af 73 mL/min (>60) 01/23/24 06:49 BUN/Creatinine Ratio 15.4 RATIO (10-20) 01/23/24 06:49 Glucose 113 mg/dL (74-106) H 01/23/24 06:49 Vancomycin Trough 19.2 ug/mL (5.0-15.0) H 01/23/24 18:45 Microbiology Microbiology: Microbiology 01/22/24 Unknown Sputum, Expectorated/Coughed Gram Stain - Final 01/22/24 Unknown Sputum, Expectorated/Coughed Respiratory Culture - Preliminary Presumptive C albicans Gram negative bolivar 01/22/24 00:49 Urine, Clean Catch Legionella Antigen - Final 01/22/24 00:49 Urine, Clean Catch Streptococcus pneumoniae Antigen (M - Final Dosing Weight Weight used for dosin kg Goal Trough Goal Trough: 15-20 mcg/mL Pharmacy Plan for Drug Dosing Pharmacy Plan for Drug Dosing: Please give 1500mg every 12 hours until next trough Pharmacy Service will continue to monitor and adjust dosing as required. Follow-Up Labs Follow-Up Labs: Trough: Vancomycin Date/Time Labs Ordered Labs to be done on [date and time ordered]: 01/25/24 @ 0700
[2024-01-23] MEDS: MELATONIN 10 MG TABLET PO (22:08)
[2024-01-23 22:40] LABS: Partial Thromboplast Time 222.8 Seconds (24.1-36.2)
[2024-01-24] VITALS (10 sets, daily range): BP systolic 110–140; BP diastolic 68–74; PULSE 70–85; RESP 15–20; TEMP 36–36.7; O2SAT 96–100; BMI 31.0
[2024-01-24] MEDS: Cefazolin 2 GM in 0.9% Normal Saline (100mL Bag) 100 ML IV ×3 (05:34→20:39)
--- NOTE | 2024-01-24 05:55 | EKG12_ITS ---
Test Reason : PRE PROCEDURE Blood Pressure : / mmHG Vent. Rate : 079 BPM Atrial Rate : 000 BPM P-R Int : 000 ms QRS Dur : 168 ms QT Int : 466 ms P-R-T Axes : 000 -37 073 degrees QTc Int : 534 ms Atrial fibrillation Left axis deviation Right bundle branch block Abnormal ECG When compared with ECG of 22-JAN-2024 05:41, MANUAL COMPARISON REQUIRED, DATA IS UNCONFIRMED Confirmed by GALEN TORRES, BAR ([id number]), dictionary editor MELISSA SOLORZANO ([id number]) on 01/25/2024 7:16:11 AM Referred By: Confirmed By:CÉSAR AARON MD
[2024-01-24 05:59] LABS: Absolute Lymphocyte Count 0.57 X10^3/uL (0.83-4.51); Absolute Neutrophil Count 5.7 X10^3/uL (2.0-7.7); Basophil# 0.06 X10^3/uL; Basophil% 0.7 % (0-1); Eosinophil# 0.38 X10^3/uL; Eosinophils% 4.7 % (0-5); Hematocrit 37.1 % (40-54); Hemoglobin 11.9 g/dL (13.0-16.5); Lymphocyte # 0.57 X10^3/ul (0.83-4.51); Lymphocyte % 7.1 % (19-41); Mean Corp Hgb Conc 32.1 g/dL (32-36); Mean Corpuscular Hgb 29.8 pg (27.0-32.0); Mean Platelet Vol. 10.3 fl (6.2-12.0); Monocyte# 1.29 X10^3/uL; NRBC Flagged by Analyzer 0 % (0-5); Neutrophil # 5.72 X10^3/uL (2.7-7.7); Neutrophil % 70.9 % (47-70); POSITIVE DIFFERENTIAL YES; Platelet Count 163 K/mm3 (150-450); RBC Distribution Width CV 14.1 % (11.6-14.6); RBC Distribution Width SD 47.8 fl (35.1-43.9); Red Blood Count 3.99 M/mm3 (4.6-6.2); White Blood Count 8.1 K/mm3 (4.4-11.0)
[2024-01-24 06:08] LABS: International Normalized Ratio 2.8
[2024-01-24 06:20] LABS: Partial Thromboplast Time 90.9 Seconds (24.1-36.2)
[2024-01-24 06:51] LABS: ALB/GLOB Ratio 0.7 RATIO (0.9-2.4); AST(SGOT) 46 U/L (15-37); Alanine Aminotransfer ALT/SGPT 28 U/L (16-61); Albumin, Serum 2.9 g/dL (3.2-5.0); Alkaline Phosphatase 174 U/L (45-117); Anion Gap 6 (5-15); BUN 14 mg/dL (7-18); BUN/Creat Ratio 15.1 RATIO (10-20); Calcium,Total 8.6 mg/dL (8.5-10.1); Chloride 105 mmol/L (98-107); Creatinine, Serum 0.93 mg/dL (0.70-1.30); EST Glomerular Filtration Rate 84 mL/min (>60); Est Glom Filt Rate - Afr Amer 101 mL/min (>60); Estimated Creatinine Clearance 81.63 ml/min; Globulin 4.2 g/dL (2.2-4.2); Glucose 105 mg/dL (74-106); Potassium 3.9 mmol/L (3.5-5.1); Protein, Total 7.1 g/dL (6.4-8.2); Sodium Level 136 mmol/L (136-145)
--- NOTE | 2024-01-24 07:40 | PN.HOSP_ITS ---
Reason for Visit Reason for Visit: Diagnoses Pneumonia, unspecified organism (01/21/24) Pleural effusion, not elsewhere classified (01/21/24) Bacteremia (01/21/24) Personal history of other diseases of the circulatory system (01/21/24) Presence of prosthetic heart valve (01/21/24) Subjective Subjective Patient is scheduled to undergo MARIAA this a.m. His ultrasound-guided thoracocentesis could not be performed given his elevated INR of 2.7. Plan is for the procedure to be performed when INR is less than 2. Patient has subsequently been started on heparin drip whilst monitoring daily INR Objective Data Objective Data Vital Signs: Vital Signs Temp Pulse Resp BP Pulse Ox O2 Del Method O2 Flow Rate 97.2 F L 71 18 140/68 H 97 Room Air 3 01/24/24 05:00 01/24/24 05:00 01/24/24 05:00 01/24/24 05:00 01/24/24 05:00 01/24/24 05:00 01/22/24 03:10 Oxygen Flow Rate (L/min) 3 Oxygen Delivery Method Room Air Weight: 104 kg Body Mass Index (BMI) 31.0 Intake & Output: Intake and Output for Last 24 Hours 01/22/24 01/23/24 01/24/24 23:59 23:59 23:59 Intake Total 2682 / 3082 2800.08 / 2800.08 393.25 / 393.25 Output Total 800 / 800 Balance 1882 / 2282 2800.08 / 2800.08 393.25 / 393.25 Lab / Micro Data 01/24/24 05:48 01/24/24 05:48 Labs: Laboratory Results - last 24 hr 01/23/24 06:49: WBC 9.3, RBC 4.02 L, Hgb 12.1 L, Hct 37.1 L, MCV 92.3, MCH 30.1, MCHC 32.6, RDW Std Deviation 47.9 H, RDW Coeff of Rich 14.1, Plt Count 163, MPV 10.0, Immature Gran % (Auto) 0.600, Neut % (Auto) 76.6 H, Lymph % (Auto) 6.5 L, [place] % (Auto) 12.2 H, Eos % (Auto) 3.5, Baso % (Auto) 0.6, Absolute Neuts (auto) 7.1, Absolute Lymphs (auto) 0.60 L, Nucleated RBC % 0, PT 26.0 H, INR 2.4, APTT 43.8 H, Sodium 134 L, Potassium 3.9, Chloride 104, Carbon Dioxide 25.0, Anion Gap 5, BUN 16, Creatinine 1.04, Estim Creat Clear Calc 72.60, Est GFR (MDRD) Af Amer 89, Est GFR (MDRD) Non-Af 73, BUN/Creatinine Ratio 15.4, Glucose 113 H, Calcium 8.7, Total Bilirubin 0.90, AST 43 H, ALT 32, Alkaline Phosphatase 169 H, Total Protein 7.2, Albumin 3.0 L, Globulin 4.2, Albumin/Globulin Ratio 0.7 L 01/23/24 18:45: Vancomycin Trough 19.2 H 01/23/24 21:58: APTT 222.8 H* 01/24/24 05:48: WBC 8.1, RBC 3.99 L, Hgb 11.9 L, Hct 37.1 L, MCV 93.0, MCH 29.8, MCHC 32.1, RDW Std Deviation 47.8 H, RDW Coeff of Rich 14.1, Plt Count 163, MPV 10.3, Immature Gran % (Auto) 0.600, Neut % (Auto) 70.9 H, Lymph % (Auto) 7.1 L, [place] % (Auto) 16.0 H, Eos % (Auto) 4.7, Baso % (Auto) 0.7, Absolute Neuts (auto) 5.7, Absolute Lymphs (auto) 0.57 L, Nucleated RBC % 0, PT 29.0 H, INR 2.8, APTT 90.9 H*, Sodium 136, Potassium 3.9, Chloride 105, Carbon Dioxide 25.0, Anion Gap 6, BUN 14, Creatinine 0.93, Estim Creat Clear Calc 81.63, Est GFR (MDRD) Af Amer 101, Est GFR (MDRD) Non-Af 84, BUN/Creatinine Ratio 15.1, Glucose 105, Calcium 8.6, Total Bilirubin 0.80, AST 46 H, ALT 28, Alkaline Phosphatase 174 H, Total Protein 7.1, Albumin 2.9 L, Globulin 4.2, Albumin/Globulin Ratio 0.7 L Micro: Microbiology 01/22/24 Unknown Sputum, Expectorated/Coughed Gram Stain - Final 01/22/24 Unknown Sputum, Expectorated/Coughed Respiratory Culture - Preliminary Presumptive C albicans Gram negative bolivar 01/22/24 00:49 Urine, Clean Catch Legionella Antigen - Final 01/22/24 00:49 Urine, Clean Catch Streptococcus pneumoniae Antigen (M - Final Physical Exam Narrative GENERAL: cooperative HEENT: Atraumatic; normocephalic EYES; Anicteric, Normal Conjunctiva NECK; supple, normal thyroid, RESPIRATORY: Diminished to auscultation CARDIOVASCULAR: Regular S1 S2, systolic click GI: soft, normoactive bowel sounds, : No Renal angle tenderness; EXTREMITIES: edema, no clubbing, MUSCULOSKELETAL: no muscle wasting NEURO: Awake; no lateralizing signs. SKIN: No Rash PSYCH; Flat affect Assessment & Plan Assessment/Plan (1) Bacteremia: (2) Pneumonia: PLAN: Plan Patient is a 78-year-old gentleman with recent diagnosis of pneumonia discharged on Augmentin and Zithromycin who presented to the emergency department after blood cultures which have been obtained came back positive for methicillin sensitive Staph aureus admitted to a monitored bed for further management 1. MSSA bacteremia ?From cultures obtained on 01/19/2024. Repeat blood cultures so far negative to date. Patient has history of MSSA prosthetic valve endocarditis from June 2023 manage at [facility] surgery was offered patient apparently declined patient is on suppressive therapy with Keflex transthoracic echo obtained so far negative for any vegetation patient was found to have pleural effusion and plan is for patient to undergo thoracocentesis ? 01/24/2024;Patient is scheduled to undergo MARIAA this a.m. His ultrasound-guided thoracocentesis could not be performed given his elevated INR of 2.7. Plan is for the procedure to be performed when INR is less than 2. Patient has subsequently been started on heparin drip whilst monitoring daily INR 2. Recent symptomatic right lower lobe pneumonia with suspected pleural effusion ? Patient was discharged on Augmentin and azithromycin pulmonary medicine consulted thoracocentesis ordered 3. 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 Paroxysmal A-fib ? Rate controlled on systemic anticoagulation as stated above 5. Mild hyponatremia ? Monitoring with daily BMPs 6. Depression and anxiety -Continue Cymbalta, Ativan 7. Physical deconditioning ? Requested for PT OT eval and social professionals to assist with discharge planning 8. DVT prophylaxis ? Patient is on Coumadin with a therapeutic INR Time spent in the patient's overall evaluation,decision-making process, review of diagnostic data, adjustment of management, discussion with other providers, nursing nursing and ancillary staff involved in patient's care documentation, 38 minutes Charges/Coding Visit Charges Inpatient E&M: 53542 Subs Hosp L2
[2024-01-24] MEDS: Vancomycin HCl 1,500 MG in 0.9% Normal Saline (500mL Bag) 500 ML 250 MG IV (07:50)
--- NOTE | 2024-01-24 08:00 | ECHOTEE_ITS ---
Reason For Study: Endocarditis Medication MARIAA probe 6VT-D (SN [id number]) passed with minimal difficulty. No complications were noted. [id number] gargled and swallowed. Cetacaine Topical [place] given X4 orally. Versed 4 mg given slow IVP. Left Ventricle Normal LV size. The estimated ejection fraction is 55 %. Right Ventricle Normal RV size. Normal systolic function. Atria There is moderate biatrial dilatation. Mitral Valve There is no vegetation seen on the mitral valve. There is no mitral valve stenosis. Tricuspid Valve No vegetations identified. There is no tricuspid stenosis. Aortic Valve There is no aortic valvular vegetation. Stable appearing mechanical aortic valve apparatus. Pulmonic Valve The pulmonic valve is not well visualized. ECHO/Echo Transesophageal (MARIAA) Interpretation Summary The estimated ejection fraction is 55 %. There is moderate biatrial dilatation. No evidence of infective endocarditis Ordering Physician: Cedrick Willingham Performed By: Alon Flynn RCS
[2024-01-24] MEDS: 0.9% Normal Saline (250mL Bag) 250 ML 15 ML IV (08:55)
[2024-01-24] MEDS: Ferrous Sulfate 325 MG Tablet PO (08:57)
[2024-01-24] MEDS: Ascorbic Acid 500 MG Tablet PO (08:57)
[2024-01-24] MEDS: DULoxetine Hcl 60 MG Capsule PO (08:57)
[2024-01-24] MEDS: LORazepam 0.5 MG Tablet PO ×2 (09:02→23:58)
--- NOTE | 2024-01-24 09:28 | NURSING ---
Patient very rude and demanding with staff. Unpleasant when conversing with this nurse. Patient demanding his PO meds, informed him that we were going to try to hold them until after his MARIAA and thoracentesis, which was around 1100 and 1200. Not okay with waiting on his pills, this nurse gave his AM meds. Patient looked in the med cup and said he was missing his Ativan. This nurse informed patient that he has Ativan PRN twice a day and this nurse had not grabbed it from the [employer] as he did not appear to be anxious, so it would be given by patient request. Patient very demanding with Ativan and told this nurse that if I did not go get it now he was going to go crazy on us. Remained calm and understanding when talking with patient. Took Ativan from [employer] and administered the PRN. Patient very apologetic a few minutes later and stated he did not realize it was PRN and he realized he was overreacting. Continued with care at this point. Will continue to monitor.
--- NOTE | 2024-01-24 11:10 | PCM.PN.ID ---
Physical Exam Narrative Feeling better, no fever, still coughing a lot, less dyspnea. 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 Seen by pulm, pending thoracentesis; could repeat cxr with lateral decub view to see if effusion is improved. TTE showed no veg, pending MARIAA. Repeat bcx neg since 01/22/24. Sputum with rare GNR. UAgs neg. Bcx showing MSSA. Will stop vanc, cont cefazolin Will follow (2) Pleural effusion, right: (3) Pneumonia: (4) History of mechanical aortic valve replacement: (5) History of endocarditis:
--- NOTE | 2024-01-24 11:14 | NURSING ---
Patient accompanied by transport MEDICAL SALES REPRESENTATIVE leaving floor for MARIAA.
[2024-01-24] MEDS: Metoprolol Tartrate 50 MG Tablet PO ×2 (12:31→20:39)
[2024-01-24 16:40] LABS: Partial Thromboplast Time 67.3 Seconds (24.1-36.2)
[2024-01-24] MEDS: 0.9% Saline Lock 10 ML Syringe IV (20:39)
[2024-01-24 22:52] LABS: Partial Thromboplast Time 84.9 Seconds (24.1-36.2)
[2024-01-24] MEDS: MELATONIN 10 MG TABLET PO (23:58)
[2024-01-25 03:00] VITALS: BP 116/66; PULSE 75; RESP 18; TEMP 35.9; O2SAT 97
[2024-01-25 03:17] VITALS: BMI 31.2
[2024-01-25] MEDS: Cefazolin 2 GM in 0.9% Normal Saline (100mL Bag) 100 ML IV ×3 (05:15→21:05)
[2024-01-25 05:57] LABS: Absolute Lymphocyte Count 0.46 X10^3/uL (0.83-4.51); Absolute Neutrophil Count 4.4 X10^3/uL (2.0-7.7); Basophil# 0.05 X10^3/uL; Basophil% 0.8 % (0-1); Eosinophil# 0.36 X10^3/uL; Eosinophils% 5.8 % (0-5); Hematocrit 29.9 % (40-54); Hemoglobin 9.8 g/dL (13.0-16.5); Lymphocyte # 0.46 X10^3/ul (0.83-4.51); Lymphocyte % 7.4 % (19-41); Mean Corp Hgb Conc 32.8 g/dL (32-36); Mean Corpuscular Hgb 30.6 pg (27.0-32.0); Mean Corpuscular Volume 93.4 fL (80-94); Mean Platelet Vol. 10.4 fl (6.2-12.0); Monocyte# 0.92 X10^3/uL; Monocyte% 14.8 % (0-10); NRBC Flagged by Analyzer 0 % (0-5); Neutrophil # 4.37 X10^3/uL (2.7-7.7); Neutrophil % 70.6 % (47-70); POSITIVE DIFFERENTIAL YES; Platelet Count 137 K/mm3 (150-450); RBC Distribution Width CV 14.2 % (11.6-14.6); RBC Distribution Width SD 47.8 fl (35.1-43.9); White Blood Count 6.2 K/mm3 (4.4-11.0)
[2024-01-25 06:44] LABS: ALB/GLOB Ratio 0.7 RATIO (0.9-2.4); AST(SGOT) 29 U/L (15-37); Alanine Aminotransfer ALT/SGPT 15 U/L (16-61); Albumin, Serum 1.9 g/dL (3.2-5.0); Alkaline Phosphatase 122 U/L (45-117); Anion Gap 4 (5-15); BUN 8 mg/dL (7-18); BUN/Creat Ratio 12.3 RATIO (10-20); Calcium,Total 5.8 mg/dL (8.5-10.1); Chloride 119 mmol/L (98-107); Creatinine, Serum 0.65 mg/dL (0.70-1.30); EST Glomerular Filtration Rate 127 mL/min (>60); Est Glom Filt Rate - Afr Amer 153 mL/min (>60); Estimated Creatinine Clearance 95.15 ml/min; Globulin 2.8 g/dL (2.2-4.2); Glucose 81 mg/dL (74-106); Potassium 2.6 mmol/L (3.5-5.1); Protein, Total 4.7 g/dL (6.4-8.2); Prothrombin Time (Protime)PT. 31.1 SECONDS (11.7-14.9); Sodium Level 145 mmol/L (136-145)
[2024-01-25 06:53] LABS: Partial Thromboplast Time 76.7 Seconds (24.1-36.2)
--- NOTE | 2024-01-25 08:06 | PCM.PN.HOSP ---
Reason for Visit Reason for Visit: Diagnoses Pneumonia, unspecified organism (01/21/24) Pleural effusion, not elsewhere classified (01/21/24) Bacteremia (01/21/24) Personal history of other diseases of the circulatory system (01/21/24) Presence of prosthetic heart valve (01/21/24) Subjective Subjective Patient underwent MARIAA the day prior was negative for endocarditis. Plan is for patient to undergo ultrasound-guided thoracocentesis once INR is 2 or less. INR as of this a.m. is 3.0 Coumadin continues to be held patient being bridged with heparin Objective Data Objective Data Vital Signs: Vital Signs Temp Pulse Resp BP Pulse Ox O2 Del Method O2 Flow Rate 96.6 F L 75 18 116/66 97 Room Air 3 01/25/24 03:00 01/25/24 03:00 01/25/24 03:00 01/25/24 03:00 01/25/24 03:00 01/25/24 03:00 01/22/24 03:10 Oxygen Flow Rate (L/min) 3 Oxygen Delivery Method Room Air Weight: 104.6 kg Body Mass Index (BMI) 31.2 Intake & Output: Intake and Output for Last 24 Hours 01/23/24 01/24/24 01/25/24 23:59 23:59 23:59 Intake Total 2800.08 / 2800.08 1677.98 / 1917.98 395 / 395 Output Total 250 / 250 Balance 2800.08 / 2800.08 1427.98 / 1667.98 395 / 395 Lab / Micro Data 01/25/24 05:33 01/25/24 05:33 Labs: Laboratory Results - last 24 hr 01/24/24 16:13: APTT 67.3 H 01/24/24 22:30: APTT 84.9 H 01/25/24 05:33: WBC 6.2, RBC 3.20 L, Hgb 9.8 L, Hct 29.9 L, MCV 93.4, MCH 30.6, MCHC 32.8, RDW Std Deviation 47.8 H, RDW Coeff of Rich 14.2, Plt Count 137 L, MPV 10.4, Immature Gran % (Auto) 0.600, Neut % (Auto) 70.6 H, Lymph % (Auto) 7.4 L, [place] % (Auto) 14.8 H, Eos % (Auto) 5.8 H, Baso % (Auto) 0.8, Absolute Neuts (auto) 4.4, Absolute Lymphs (auto) 0.46 L, Nucleated RBC % 0, PT 31.1 H, INR 3.0, APTT 76.7 H, Sodium 145, Potassium 2.6 L*, Chloride 119 H, Carbon Dioxide 22.0, Anion Gap 4 L, BUN 8, Creatinine 0.65 L, Estim Creat Clear Calc 95.15, Est GFR (MDRD) Af Amer 153, Est GFR (MDRD) Non-Af 127, BUN/Creatinine Ratio 12.3, Glucose 81, Calcium 5.8 L*, Total Bilirubin 0.40, AST 29, ALT 15 L, Alkaline Phosphatase 122 H, Total Protein 4.7 L, Albumin 1.9 L, Globulin 2.8, Albumin/Globulin Ratio 0.7 L Micro: Microbiology 01/22/24 Unknown Sputum, Expectorated/Coughed Gram Stain - Final 01/22/24 Unknown Sputum, Expectorated/Coughed Respiratory Culture - Preliminary Presumptive C albicans Gram negative bolivar 01/22/24 08:49 Blood Culture (Wb) - Anticubital Right Blood Culture - Preliminary No growth in 48 hours. 01/22/24 00:49 Urine, Clean Catch Legionella Antigen - Final 01/22/24 00:49 Urine, Clean Catch Streptococcus pneumoniae Antigen (M - Final Radiography Diagnostic Testing: Radiology Impression Transesophageal Echocardiogram 01/24/24 08:00 Interpretation Summary The estimated ejection fraction is 55 %. There is moderate biatrial dilatation. No evidence of infective endocarditis Ordering Physician: Cedrick Willingham Performed By: Alon Flynn RCS Physical Exam Narrative GENERAL: cooperative HEENT: Atraumatic; normocephalic EYES; Anicteric, Normal Conjunctiva NECK; supple, normal thyroid, RESPIRATORY: Diminished to auscultation CARDIOVASCULAR: Regular S1 S2, systolic click GI: soft, normoactive bowel sounds, : No Renal angle tenderness; EXTREMITIES: edema, no clubbing, MUSCULOSKELETAL: no muscle wasting NEURO: Awake; no lateralizing signs. SKIN: No Rash PSYCH; Flat affect Assessment & Plan Assessment/Plan (1) Bacteremia: (2) Pneumonia: PLAN: Plan Patient is a 78-year-old gentleman with recent diagnosis of pneumonia discharged on Augmentin and Zithromycin who presented to the emergency department after blood cultures which have been obtained came back positive for methicillin sensitive Staph aureus admitted to a monitored bed for further management 1. MSSA bacteremia ?From cultures obtained on 01/19/2024. Repeat blood cultures so far negative to date. 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 01/24/2024;Patient is scheduled to undergo MARIAA this a.m. His ultrasound-guided thoracocentesis could not be performed given his elevated INR of 2.7. Plan is for the procedure to be performed when INR is less than 2. Patient has subsequently been started on heparin drip whilst monitoring daily INR ? 01/25/2024;Patient underwent MARIAA the day prior was negative for endocarditis. Plan is for patient to undergo ultrasound-guided thoracocentesis once INR is 2 or less. INR as of this a.m. is 3.0 Coumadin continues to be held patient being bridged with heparin 2. Recent symptomatic right lower lobe pneumonia with suspected pleural effusion ? Patient was discharged on Augmentin and azithromycin pulmonary medicine consulted thoracocentesis ordered 3. 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 Paroxysmal A-fib ? Rate controlled on systemic anticoagulation as stated above 5. Mild hyponatremia ? Monitoring with daily BMPs 6. Depression and anxiety -Continue Cymbalta, Ativan 7. Physical deconditioning ? Requested for PT OT eval and social security assessor to assist with discharge planning 8. DVT prophylaxis ? Patient is on Coumadin with a therapeutic INR Time spent in the patient's overall evaluation,decision-making process, review of diagnostic data, adjustment of management, discussion with other providers, nursing nursing and ancillary staff involved in patient's care documentation, 38 minutes Charges/Coding Visit Charges Inpatient E&M: 61187 Subs Hosp L2
--- NOTE | 2024-01-25 08:27 | RAD_ITS ---
STUDY: X-RAY CHEST REASON FOR EXAM: Male, 78 years old. Right effusion. TECHNIQUE: 3 right decubitus chest x-ray images were obtained. COMPARISON: Chest dated January 22, 2024. FINDINGS: 3 decubitus images show large layering pleural effusion. Cardiomegaly with sternotomy wires and changes of valve replacement with mild interstitial prominence unaltered. No abnormality of the visualized soft tissue structures of the upper abdomen. RAD/Special CXR (Obl/Decub/A/L) IMPRESSION: Large layering right pleural effusion. Electronically Signed: Binu Loyola MD at 15:41 EDT ,
[2024-01-25 09:37] VITALS: BP 122/54; PULSE 82; RESP 16; TEMP 36.5; O2SAT 93
[2024-01-25 10:03] VITALS: BP 122/54; PULSE 82
[2024-01-25] MEDS: DULoxetine Hcl 60 MG Capsule PO (10:03)
[2024-01-25] MEDS: Ferrous Sulfate 325 MG Tablet PO (10:03)
[2024-01-25] MEDS: Metoprolol Tartrate 50 MG Tablet PO ×2 (10:03→21:05)
[2024-01-25] MEDS: Ascorbic Acid 500 MG Tablet PO (10:03)
[2024-01-25] MEDS: LORazepam 0.5 MG Tablet PO (10:04)
[2024-01-25 10:30] LABS: Hematocrit 41.6 % (40-54); Hemoglobin 13.4 g/dL (13.0-16.5); Mean Corp Hgb Conc 32.2 g/dL (32-36); Mean Corpuscular Hgb 30.2 pg (27.0-32.0); Mean Corpuscular Volume 93.9 fL (80-94); Mean Platelet Vol. 10.3 fl (6.2-12.0); Platelet Count 199 K/mm3 (150-450); RBC Distribution Width CV 14.4 % (11.6-14.6); RBC Distribution Width SD 49.3 fl (35.1-43.9); Red Blood Count 4.43 M/mm3 (4.6-6.2); White Blood Count 9.2 K/mm3 (4.4-11.0)
[2024-01-25 11:18] LABS: ALB/GLOB Ratio 0.6 RATIO (0.9-2.4); AST(SGOT) 49 U/L (15-37); Alanine Aminotransfer ALT/SGPT 29 U/L (16-61); Alkaline Phosphatase 198 U/L (45-117); Anion Gap 7 (5-15); BUN 11 mg/dL (7-18); BUN/Creat Ratio 11.3 RATIO (10-20); Calcium,Total 9.1 mg/dL (8.5-10.1); Chloride 107 mmol/L (98-107); Creatinine, Serum 0.97 mg/dL (0.70-1.30); EST Glomerular Filtration Rate 79 mL/min (>60); Est Glom Filt Rate - Afr Amer 96 mL/min (>60); Estimated Creatinine Clearance 78.48 ml/min; Globulin 4.7 g/dL (2.2-4.2); Glucose 120 mg/dL (74-106); Protein, Total 7.7 g/dL (6.4-8.2); Sodium Level 136 mmol/L (136-145)
[2024-01-25] MEDS: HEPARIN/D5w 25,000 UNITS 25,000 UNITS/250 ML IV.SOLN. 5 UNITS CONT INF (12:34)
[2024-01-25] MEDS: 0.9% Saline Lock 10 ML Syringe IV ×3 (12:35→21:05)
[2024-01-25 13:23] LABS: Partial Thromboplast Time 50.4 Seconds (24.1-36.2)
--- NOTE | 2024-01-25 13:23 | PCM.PN.ID ---
Physical Exam Narrative Feeling well, less cough, no fever Const alert and no apparent distress General Appearance: cooperative Resp normal air movement and clear to auscultation bilaterally Cardio regular rate and regular rhythm Heart Sounds: click GI soft to palpation, non-tender and non-distended Skin no rashes or lesions noted ID ID: Route of nutrition/ use of supplements: [] Nutritional Intake: [] IV Site: [] Cortez Catheter: [] Assessment & Plan Assessment/Plan (1) Bacteremia: PLAN: 06/2023 MSSA prosthetic valve endocarditis, has been taking his keflex for suppression since then. Seen by pulm, pending thoracentesis; will order repeat cxr with lateral decub view to see if effusion is improved. TTE showed no veg, MARIAA also with no veg. Repeat bcx neg since 01/22/24. Sputum with rare serratia and yeast. UAgs neg. Bcx showing MSSA. Cont cefazolin. Plan for discharge, if effusion resolves or if thoracentesis shows no empyema, will be single lumen picc and iv cefazolin 2gm q8h for 4 weeks, stop date 02/19/24 with weekly bmp and cbc. Will follow (2) Pleural effusion, right: (3) Pneumonia: (4) History of mechanical aortic valve replacement: (5) History of endocarditis:
--- NOTE | 2024-01-25 15:45 | CASEMGMT ---
RN MAISHA spoke with ID and noted IV needs in progress note. CXR pending. IVY FERRERA into pt room to discuss that pt will need IV atb at dc. Pt states he has done IV atb at home in the past several times. Pt states he has used [facility] and would use them again. He denies need for list of other options. Provided pt with a list of C providers including quality and resource use data and consistent with the patient?s preferred geographic region, medical needs, and insurance network were provided from the [employer] [facility]. Pt could not recall who he had in the past. Pt seemed overwhelmed with this information. He is aware that he will be here through the weekend and he can take his time to process this information. He is aware that the RN MAISHA will follow up with him next week for his top 3 HH preferences. Pt is agreeable to this. Pt states he doesn't want to go through this again. He states he does not want to go to SNF.
[2024-01-25 16:21] VITALS: BP 126/79; PULSE 67; RESP 18; TEMP 36.4; O2SAT 95
[2024-01-25 21:05] VITALS: BP 105/67; PULSE 69; RESP 16; TEMP 36.4; O2SAT 96
[2024-01-25 21:47] LABS: Partial Thromboplast Time 69.4 Seconds (24.1-36.2)
[2024-01-26] VITALS (8 sets, daily range): BP systolic 106–129; BP diastolic 47–74; PULSE 72–78; RESP 14–18; TEMP 36.2–36.7; O2SAT 93–97; BMI 31.3
[2024-01-26] MEDS: LORazepam 0.5 MG Tablet PO ×3 (00:36→21:19)
[2024-01-26] MEDS: MELATONIN 10 MG TABLET PO ×2 (00:37→21:13)
[2024-01-26] MEDS: guaiFENesin Dm 10 ML UDC PO (03:25)
[2024-01-26 04:18] LABS: Absolute Neutrophil Count 6.1 X10^3/uL (2.0-7.7); Basophil# 0.08 X10^3/uL; Eosinophil# 0.44 X10^3/uL; Eosinophils% 5.2 % (0-5); Hematocrit 36.5 % (40-54); Hemoglobin 12.1 g/dL (13.0-16.5); Lymphocyte % 8.3 % (19-41); Mean Corp Hgb Conc 33.2 g/dL (32-36); Mean Corpuscular Hgb 30.1 pg (27.0-32.0); Mean Corpuscular Volume 90.8 fL (80-94); Mean Platelet Vol. 10.2 fl (6.2-12.0); Monocyte# 1.02 X10^3/uL; Monocyte% 12.1 % (0-10); NRBC Flagged by Analyzer 0 % (0-5); Neutrophil % 72.7 % (47-70); Platelet Count 173 K/mm3 (150-450); RBC Distribution Width SD 47.1 fl (35.1-43.9); Red Blood Count 4.02 M/mm3 (4.6-6.2); White Blood Count 8.4 K/mm3 (4.4-11.0)
[2024-01-26 04:28] LABS: Partial Thromboplast Time 57.9 Seconds (24.1-36.2)
[2024-01-26 04:46] LABS: ALB/GLOB Ratio 0.7 RATIO (0.9-2.4); AST(SGOT) 46 U/L (15-37); Alanine Aminotransfer ALT/SGPT 23 U/L (16-61); Alkaline Phosphatase 179 U/L (45-117); Anion Gap 7 (5-15); BUN 10 mg/dL (7-18); Calcium,Total 8.6 mg/dL (8.5-10.1); Chloride 107 mmol/L (98-107); Creatinine, Serum 0.84 mg/dL (0.70-1.30); EST Glomerular Filtration Rate 94 mL/min (>60); Est Glom Filt Rate - Afr Amer 114 mL/min (>60); Estimated Creatinine Clearance 90.79 ml/min; Globulin 4.2 g/dL (2.2-4.2); Glucose 120 mg/dL (74-106); Potassium 3.8 mmol/L (3.5-5.1); Protein, Total 7.2 g/dL (6.4-8.2); Sodium Level 138 mmol/L (136-145)
[2024-01-26] MEDS: 0.9% Saline Lock 10 ML Syringe IV ×2 (05:05→15:03)
[2024-01-26] MEDS: Cefazolin 2 GM in 0.9% Normal Saline (100mL Bag) 100 ML IV ×3 (05:05→21:12)
[2024-01-26] MEDS: DULoxetine Hcl 60 MG Capsule PO (06:50)
--- NOTE | 2024-01-26 07:42 | PN.HOSP_ITS ---
Reason for Visit Reason for Visit: Diagnoses Pneumonia, unspecified organism (01/21/24) Pleural effusion, not elsewhere classified (01/21/24) Bacteremia (01/21/24) Personal history of other diseases of the circulatory system (01/21/24) Presence of prosthetic heart valve (01/21/24) Subjective Subjective Patient seen cough did improve with guaifenesin. Scheduled to undergo ultrasound-guided thoracocentesis on 01/28/2024 Objective Data Objective Data Vital Signs: Vital Signs Temp Pulse Resp BP Pulse Ox O2 Del Method O2 Flow Rate 97.2 F L 72 16 129/74 H 94 Room Air 3 01/26/24 03:15 01/26/24 03:15 01/26/24 03:15 01/26/24 03:15 01/26/24 03:15 01/26/24 03:15 01/22/24 03:10 Oxygen Flow Rate (L/min) 3 Oxygen Delivery Method Room Air Weight: 105 kg Body Mass Index (BMI) 31.3 Intake & Output: Intake and Output for Last 24 Hours 01/24/24 01/25/24 01/26/24 23:59 23:59 23:59 Intake Total 1677.98 / 1917.98 1577.35 / 1677.35 210 / 210 Output Total 250 / 250 150 / 150 Balance 1427.98 / 1667.98 1577.35 / 1677.35 60 / 60 Lab / Micro Data 01/26/24 03:56 01/26/24 03:56 Labs: Laboratory Results - last 24 hr 01/25/24 10:12: WBC 9.2, RBC 4.43 L, Hgb 13.4, Hct 41.6, MCV 93.9, MCH 30.2, MCHC 32.2, RDW Std Deviation 49.3 H, RDW Coeff of Rich 14.4, Plt Count 199, MPV 10.3, Sodium 136, Potassium 4.0, Chloride 107, Carbon Dioxide 22.0, Anion Gap 7, BUN 11, Creatinine 0.97, Estim Creat Clear Calc 78.48, Est GFR (MDRD) Af Amer 96, Est GFR (MDRD) Non-Af 79, BUN/Creatinine Ratio 11.3, Glucose 120 H, Calcium 9.1, Total Bilirubin 0.70, AST 49 H, ALT 29, Alkaline Phosphatase 198 H, Total Protein 7.7, Albumin 3.0 L, Globulin 4.7 H, Albumin/Globulin Ratio 0.6 L 01/25/24 12:54: APTT 50.4 H 01/25/24 20:42: APTT 69.4 H 01/26/24 03:56: WBC 8.4, RBC 4.02 L, Hgb 12.1 L, Hct 36.5 L, MCV 90.8, MCH 30.1, MCHC 33.2, RDW Std Deviation 47.1 H, RDW Coeff of Rich 14.0, Plt Count 173, MPV 10.2, Immature Gran % (Auto) 0.700, Neut % (Auto) 72.7 H, Lymph % (Auto) 8.3 L, [place] % (Auto) 12.1 H, Eos % (Auto) 5.2 H, Baso % (Auto) 1.0, Absolute Neuts (auto) 6.1, Absolute Lymphs (auto) 0.70 L, Nucleated RBC % 0, PT 23.0 H, INR 2.0, APTT 57.9 H, Sodium 138, Potassium 3.8, Chloride 107, Carbon Dioxide 24.0, Anion Gap 7, BUN 10, Creatinine 0.84, Estim Creat Clear Calc 90.79, Est GFR (MDRD) Af Amer 114, Est GFR (MDRD) Non-Af 94, BUN/Creatinine Ratio 12.0, Glucose 120 H, Calcium 8.6, Total Bilirubin 0.90, AST 46 H, ALT 23, Alkaline Phosphatase 179 H, Total Protein 7.2, Albumin 3.0 L, Globulin 4.2, Albumin/Globulin Ratio 0.7 L Micro: Microbiology 01/23/24 08:36 Blood Culture (Wb) - Anticubital Left Blood Culture - Preliminary No growth in 48 hours. 01/22/24 Unknown Sputum, Expectorated/Coughed Gram Stain - Final 01/22/24 Unknown Sputum, Expectorated/Coughed Respiratory Culture - Final Presumptive C albicans Serratia marcescens 01/22/24 08:49 Blood Culture (Wb) - Anticubital Right Blood Culture - Preliminary No growth in 48 hours. 01/22/24 00:49 Urine, Clean Catch Legionella Antigen - Final 01/22/24 00:49 Urine, Clean Catch Streptococcus pneumoniae Antigen (M - Final Radiography Diagnostic Testing: Radiology Impression Chest X-Ray 01/25/24 08:27 IMPRESSION: Large layering right pleural effusion. Electronically Signed: Binu Loyola MD at 15:41 EDT Reading Location ID and State: [facility] / [place] , Service support , Physical Exam Narrative GENERAL: cooperative HEENT: Atraumatic; normocephalic EYES; Anicteric, Normal Conjunctiva NECK; supple, normal thyroid, RESPIRATORY: Diminished to auscultation CARDIOVASCULAR: Regular S1 S2, systolic click GI: soft, normoactive bowel sounds, : No Renal angle tenderness; EXTREMITIES: edema, no clubbing, MUSCULOSKELETAL: no muscle wasting NEURO: Awake; no lateralizing signs. SKIN: No Rash PSYCH; Flat affect Assessment & Plan Assessment/Plan (1) Bacteremia: (2) Pneumonia: PLAN: Plan Patient is a 78-year-old gentleman with recent diagnosis of pneumonia discharged on Augmentin and Zithromycin who presented to the emergency department after blood cultures which have been obtained came back positive for methicillin sensitive Staph aureus admitted to a monitored bed for further management 1. MSSA bacteremia ?From cultures obtained on 01/19/2024. Repeat blood cultures so far negative to date. 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 01/24/2024;Patient is scheduled to undergo MARIAA this a.m. His ultrasound-guided thoracocentesis could not be performed given his elevated INR of 2.7. Plan is for the procedure to be performed when INR is less than 2. Patient has subsequently been started on heparin drip whilst monitoring daily INR ? 01/25/2024;Patient underwent MARIAA the day prior was negative for endocarditis. Plan is for patient to undergo ultrasound-guided thoracocentesis once INR is 2 or less. INR as of this a.m. is 3.0 Coumadin continues to be held patient being bridged with heparin ? Ultrasound-guided thoracocentesis ordered for 01/28/2024. 2. Recent symptomatic right lower lobe pneumonia with suspected pleural effusion ? Patient was discharged on Augmentin and azithromycin pulmonary medicine consulted thoracocentesis ordered 3. 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 Paroxysmal A-fib ? Rate controlled on systemic anticoagulation as stated above 5. Mild hyponatremia ? Monitoring with daily BMPs 6. Depression and anxiety -Continue Cymbalta, Ativan 7. Physical deconditioning ? Requested for PT OT eval and dialysis social worker to assist with discharge planning 8. DVT prophylaxis ? Patient is on Coumadin with a therapeutic INR Time spent in the patient's overall evaluation,decision-making process, review of diagnostic data, adjustment of management, discussion with other providers, nursing nursing and ancillary staff involved in patient's care documentation, 36 minutes Charges/Coding Visit Charges Inpatient E&M: 47997 Subs Hosp L2
[2024-01-26] MEDS: Metoprolol Tartrate 50 MG Tablet PO ×2 (09:42→21:13)
[2024-01-26] MEDS: Ascorbic Acid 500 MG Tablet PO (09:42)
[2024-01-26] MEDS: Ferrous Sulfate 325 MG Tablet PO (11:59)
--- NOTE | 2024-01-26 13:11 | CASEMGMT ---
Social Work SW spoke w/pt about POA, pt confirms daughter is his POA for healthcare. SW asked to have his daughter bring in the document as able. Pt states understanding. BAY Reyna
--- NOTE | 2024-01-26 13:24 | NURSING ---
ptt pending- lab states machine is being worked on delay in ptt results
[2024-01-26 14:52] LABS: Partial Thromboplast Time 46.2 Seconds (24.1-36.2)
[2024-01-26 15:47] LABS: Partial Thromboplast Time 44.9 Seconds (24.1-36.2)
[2024-01-26] MEDS: Ipratropium/Albuterol Sulfate 3 ML AMPUL.NEB INHALATION (19:45)
[2024-01-26 22:04] LABS: Partial Thromboplast Time 53.6 Seconds (24.1-36.2)
[2024-01-27] VITALS (7 sets, daily range): BP systolic 116–125; BP diastolic 66–83; PULSE 72–82; RESP 16–20; TEMP 36.4–36.8; O2SAT 94–100; BMI 31.6
[2024-01-27] MEDS: HEPARIN/D5w 25,000 UNITS 25,000 UNITS/250 ML IV.SOLN. 7 UNITS CONT INF (03:33)
[2024-01-27 04:44] LABS: Absolute Lymphocyte Count 0.67 X10^3/uL (0.83-4.51); Absolute Neutrophil Count 5.7 X10^3/uL (2.0-7.7); Basophil# 0.07 X10^3/uL; Basophil% 0.9 % (0-1); Eosinophil# 0.34 X10^3/uL; Eosinophils% 4.3 % (0-5); Hematocrit 37.2 % (40-54); Hemoglobin 12.3 g/dL (13.0-16.5); Lymphocyte # 0.67 X10^3/ul (0.83-4.51); Lymphocyte % 8.4 % (19-41); Mean Corp Hgb Conc 33.1 g/dL (32-36); Mean Corpuscular Hgb 30.4 pg (27.0-32.0); Mean Corpuscular Volume 92.1 fL (80-94); Mean Platelet Vol. 10.5 fl (6.2-12.0); Monocyte% 13.8 % (0-10); NRBC Flagged by Analyzer 0 % (0-5); Neutrophil # 5.72 X10^3/uL (2.7-7.7); Neutrophil % 71.8 % (47-70); Platelet Count 192 K/mm3 (150-450); RBC Distribution Width CV 14.2 % (11.6-14.6); RBC Distribution Width SD 48.4 fl (35.1-43.9); Red Blood Count 4.04 M/mm3 (4.6-6.2)
[2024-01-27 04:54] LABS: Partial Thromboplast Time 60.5 Seconds (24.1-36.2)
[2024-01-27 05:00] LABS: International Normalized Ratio 1.7; Prothrombin Time (Protime)PT. 19.9 SECONDS (11.7-14.9)
[2024-01-27 05:07] LABS: ALB/GLOB Ratio 0.7 RATIO (0.9-2.4); AST(SGOT) 40 U/L (15-37); Alanine Aminotransfer ALT/SGPT 21 U/L (16-61); Albumin, Serum 2.8 g/dL (3.2-5.0); Alkaline Phosphatase 175 U/L (45-117); Anion Gap 5 (5-15); BUN 12 mg/dL (7-18); Calcium,Total 8.5 mg/dL (8.5-10.1); Chloride 108 mmol/L (98-107); Creatinine, Serum 0.86 mg/dL (0.70-1.30); EST Glomerular Filtration Rate 91 mL/min (>60); Est Glom Filt Rate - Afr Amer 110 mL/min (>60); Estimated Creatinine Clearance 88.67 ml/min; Globulin 4.3 g/dL (2.2-4.2); Glucose 114 mg/dL (74-106); Potassium 3.9 mmol/L (3.5-5.1); Protein, Total 7.1 g/dL (6.4-8.2); Sodium Level 138 mmol/L (136-145)
[2024-01-27] MEDS: Cefazolin 2 GM in 0.9% Normal Saline (100mL Bag) 100 ML IV ×3 (05:07→20:58)
[2024-01-27] MEDS: LORazepam 0.5 MG Tablet PO ×2 (07:31→22:50)
--- NOTE | 2024-01-27 07:34 | PCM.PN.HOSP ---
Reason for Visit Reason for Visit: Diagnoses Pneumonia, unspecified organism (01/21/24) Pleural effusion, not elsewhere classified (01/21/24) Bacteremia (01/21/24) Personal history of other diseases of the circulatory system (01/21/24) Presence of prosthetic heart valve (01/21/24) Subjective Subjective Patient seen down to 1.7. Plan is for patient to undergo ultrasound-guided thoracocentesis on 01/28/2024 Objective Data Objective Data Vital Signs: Vital Signs Temp Pulse Resp BP Pulse Ox O2 Del Method O2 Flow Rate 97.9 F 72 18 117/71 94 Room Air 3 01/27/24 03:10 01/27/24 03:10 01/27/24 03:10 01/27/24 03:10 01/27/24 03:10 01/27/24 03:10 01/22/24 03:10 Oxygen Flow Rate (L/min) 3 Oxygen Delivery Method Room Air Weight: 105.8 kg Body Mass Index (BMI) 31.6 Intake & Output: Intake and Output for Last 24 Hours 01/25/24 01/26/24 01/27/24 23:59 23:59 23:59 Intake Total 1577.35 / 1677.35 1696.30 / 1936.30 387.1 / 387.1 Output Total 150 / 375 525 / 525 Balance 1577.35 / 1677.35 1546.30 / 1561.30 -137.9 / -137.9 Lab / Micro Data 01/27/24 04:18 01/27/24 04:18 Labs: Laboratory Results - last 24 hr 01/26/24 09:57: APTT 46.2 H 01/26/24 15:12: APTT 44.9 H 01/26/24 21:44: APTT 53.6 H 01/27/24 04:18: WBC 8.0, RBC 4.04 L, Hgb 12.3 L, Hct 37.2 L, MCV 92.1, MCH 30.4, MCHC 33.1, RDW Std Deviation 48.4 H, RDW Coeff of Rich 14.2, Plt Count 192, MPV 10.5, Immature Gran % (Auto) 0.800, Neut % (Auto) 71.8 H, Lymph % (Auto) 8.4 L, [place] % (Auto) 13.8 H, Eos % (Auto) 4.3, Baso % (Auto) 0.9, Absolute Neuts (auto) 5.7, Absolute Lymphs (auto) 0.67 L, Nucleated RBC % 0, PT 19.9 H, INR 1.7, APTT 60.5 H, Sodium 138, Potassium 3.9, Chloride 108 H, Carbon Dioxide 25.0, Anion Gap 5, BUN 12, Creatinine 0.86, Estim Creat Clear Calc 88.67, Est GFR (MDRD) Af Amer 110, Est GFR (MDRD) Non-Af 91, BUN/Creatinine Ratio 14.0, Glucose 114 H, Calcium 8.5, Total Bilirubin 0.90, AST 40 H, ALT 21, Alkaline Phosphatase 175 H, Total Protein 7.1, Albumin 2.8 L, Globulin 4.3 H, Albumin/Globulin Ratio 0.7 L Micro: Microbiology 01/23/24 08:36 Blood Culture (Wb) - Anticubital Left Blood Culture - Preliminary No growth in 48 hours. 01/22/24 Unknown Sputum, Expectorated/Coughed Gram Stain - Final 01/22/24 Unknown Sputum, Expectorated/Coughed Respiratory Culture - Final Presumptive C albicans Serratia marcescens 01/22/24 08:49 Blood Culture (Wb) - Anticubital Right Blood Culture - Preliminary No growth in 48 hours. 01/22/24 00:49 Urine, Clean Catch Legionella Antigen - Final 01/22/24 00:49 Urine, Clean Catch Streptococcus pneumoniae Antigen (M - Final Physical Exam Narrative GENERAL: cooperative HEENT: Atraumatic; normocephalic EYES; Anicteric, Normal Conjunctiva NECK; supple, normal thyroid, RESPIRATORY: Diminished to auscultation CARDIOVASCULAR: Regular S1 S2, systolic click GI: soft, normoactive bowel sounds, : No Renal angle tenderness; EXTREMITIES: edema, no clubbing, MUSCULOSKELETAL: no muscle wasting NEURO: Awake; no lateralizing signs. SKIN: No Rash PSYCH; Flat affect Assessment & Plan Assessment/Plan (1) Bacteremia: (2) Pneumonia: PLAN: Plan Patient is a 78-year-old gentleman with recent diagnosis of pneumonia discharged on Augmentin and Zithromycin who presented to the emergency department after blood cultures which have been obtained came back positive for methicillin sensitive Staph aureus admitted to a monitored bed for further management 1. MSSA bacteremia ?From cultures obtained on 01/19/2024. Repeat blood cultures so far negative to date. 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 01/24/2024;Patient is scheduled to undergo MARIAA this a.m. His ultrasound-guided thoracocentesis could not be performed given his elevated INR of 2.7. Plan is for the procedure to be performed when INR is less than 2. Patient has subsequently been started on heparin drip whilst monitoring daily INR ? 01/25/2024;Patient underwent MARIAA the day prior was negative for endocarditis. Plan is for patient to undergo ultrasound-guided thoracocentesis once INR is 2 or less. INR as of this a.m. is 3.0 Coumadin continues to be held patient being bridged with heparin ? 01/26/2024 ultrasound-guided thoracocentesis ordered for 01/28/2024. ? 01/27/2024;Patient seen down to 1.7. Plan is for patient to undergo ultrasound-guided thoracocentesis on 01/28/2024 2. Recent symptomatic right lower lobe pneumonia with suspected pleural effusion ? Patient was discharged on Augmentin and azithromycin pulmonary medicine consulted thoracocentesis ordered 3. 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 Paroxysmal A-fib ? Rate controlled on systemic anticoagulation as stated above 5. Mild hyponatremia ? Monitoring with daily BMPs 6. Depression and anxiety -Continue Cymbalta, Ativan 7. Physical deconditioning ? Requested for PT OT eval and social service worker to assist with discharge planning 8. DVT prophylaxis ? Patient is on Coumadin with a therapeutic INR Time spent in the patient's overall evaluation,decision-making process, review of diagnostic data, adjustment of management, discussion with other providers, nursing nursing and ancillary staff involved in patient's care documentation, 36 minutes Charges/Coding Visit Charges Inpatient E&M: 65160 Subs Hosp L2
[2024-01-27] MEDS: Ipratropium/Albuterol Sulfate 3 ML AMPUL.NEB INHALATION ×2 (07:38→13:58)
[2024-01-27] MEDS: DULoxetine Hcl 60 MG Capsule PO (07:42)
[2024-01-27] MEDS: Metoprolol Tartrate 50 MG Tablet PO ×2 (07:43→20:52)
[2024-01-27] MEDS: Ascorbic Acid 500 MG Tablet PO (07:43)
[2024-01-27 10:38] LABS: Partial Thromboplast Time 52.1 Seconds (24.1-36.2)
[2024-01-27] MEDS: Ferrous Sulfate 325 MG Tablet PO (12:44)
[2024-01-27] MEDS: 0.9% Saline Lock 10 ML Syringe IV (13:18)
[2024-01-27 17:10] LABS: Partial Thromboplast Time 59.7 Seconds (24.1-36.2)
[2024-01-27] MEDS: MELATONIN 10 MG TABLET PO (20:52)
[2024-01-27 23:21] LABS: Partial Thromboplast Time 48.4 Seconds (24.1-36.2)
[2024-01-28] VITALS (13 sets, daily range): BP systolic 98–158; BP diastolic 51–65; PULSE 69–78; RESP 16–18; TEMP 36.2–36.7; O2SAT 92–98; BMI 31.1
--- NOTE | 2024-01-28 | FLU_PTH ---
PATIENT: TRAMAINE MAST LOC: [facility] U#:[id number] AGE/SX: 78/M ROOM: [facility] RE01/21/[address]: Dr. Donaldo Kincaid DO : 1945 BED: 1 DIS: 01/30/2024 SPEC #: [id number] RECD: 01/28/24 13:02 STATUS: PATY REQ #: [id number] AURA: 01/28/24 00:[address]: Donaldo Kincaid DEPT: CYTOLOGY RECD BY: Eleanor Vega ENTERED: 01/28/24 13:47 SP TYPE: Fluid OTHR DR: MD Dr. Tom Kathleen MD Dr. Derek Brown, DO Dr. David Kittoe, MD Dr. David P Myers, MD Dr. Edward Matheis, MD Dr. Gautam Baskaran, MD Dr. Yordanos Habtegebriel, MD Dr. Hemant Dand, MD Dr. Jose Ochoa, MD Dr. Kimber Foust, MD Dr. Lamia Aljundi, MD Dr. Mark Stutzman, DO Dr. Prakash Chand, MD Dr. Pritam Ghosh, MD Dr. Pavan Irukulla, MD Dr. Paige Pierce, MD Dr. Robert Leininger, MD Dr. Saad Farooqi, MD Dr. Vikram Anand, MD Dr. William Haden, MD Tissues: Pleural fluid, NOS Procedures: Special Stain Group II Surgery Specimen Level IV Cytospin Fluid HEADER OPERATION: Thoracentesis fluid PRE-OP DIAGNOSIS: Pleural effusion TISSUE SUBMITTED: Thoracentesis fluid for cytology DIAGNOSIS CYTOLOGY Thoracentesis fluid for cytology (cytospin and cellblock): Negative for malignant cells. See comment. Stark 01/29/2024 COMMENT Clinical correlation and appropriate follow up are necessary. CYTOLOGY STUDY Slides are reviewed. CYTOLOGY GROSS Received is 90 ml of red-cloudy fluid labeled with the patient's name and and designated per the requisition as Thoracentesis fluid. Submitted for cytology preparation including cell block. Mr 01/28/2024 TC:5 CPT: 75745,06809
[2024-01-28] MEDS: Cefazolin 2 GM in 0.9% Normal Saline (100mL Bag) 100 ML IV ×3 (05:36→21:03)
[2024-01-28 06:20] LABS: Absolute Lymphocyte Count 0.77 X10^3/uL (0.83-4.51); Absolute Neutrophil Count 5.7 X10^3/uL (2.0-7.7); Basophil# 0.09 X10^3/uL; Basophil% 1.1 % (0-1); Eosinophil# 0.36 X10^3/uL; Eosinophils% 4.4 % (0-5); Hematocrit 37.9 % (40-54); Hemoglobin 12.4 g/dL (13.0-16.5); Lymphocyte # 0.77 X10^3/ul (0.83-4.51); Lymphocyte % 9.3 % (19-41); Mean Corp Hgb Conc 32.7 g/dL (32-36); Mean Corpuscular Hgb 30.5 pg (27.0-32.0); Mean Corpuscular Volume 93.1 fL (80-94); Mean Platelet Vol. 10.4 fl (6.2-12.0); Monocyte# 1.22 X10^3/uL; Monocyte% 14.8 % (0-10); NRBC Flagged by Analyzer 0 % (0-5); Neutrophil # 5.72 X10^3/uL (2.7-7.7); Neutrophil % 69.3 % (47-70); Platelet Count 195 K/mm3 (150-450); RBC Distribution Width CV 14.5 % (11.6-14.6); RBC Distribution Width SD 49.3 fl (35.1-43.9); Red Blood Count 4.07 M/mm3 (4.6-6.2); White Blood Count 8.3 K/mm3 (4.4-11.0)
[2024-01-28 06:27] LABS: Partial Thromboplast Time 57.3 Seconds (24.1-36.2)
[2024-01-28 06:44] LABS: ALB/GLOB Ratio 0.7 RATIO (0.9-2.4); AST(SGOT) 43 U/L (15-37); Alanine Aminotransfer ALT/SGPT 17 U/L (16-61); Albumin, Serum 2.9 g/dL (3.2-5.0); Alkaline Phosphatase 180 U/L (45-117); Anion Gap 7 (5-15); BUN 10 mg/dL (7-18); BUN/Creat Ratio 10.5 RATIO (10-20); Calcium,Total 8.6 mg/dL (8.5-10.1); Chloride 105 mmol/L (98-107); Creatinine, Serum 0.95 mg/dL (0.70-1.30); EST Glomerular Filtration Rate 82 mL/min (>60); Est Glom Filt Rate - Afr Amer 99 mL/min (>60); Globulin 4.3 g/dL (2.2-4.2); Glucose 101 mg/dL (74-106); Protein, Total 7.2 g/dL (6.4-8.2); Sodium Level 138 mmol/L (136-145)
[2024-01-28] MEDS: LORazepam 0.5 MG Tablet PO ×2 (07:11→21:04)
[2024-01-28] MEDS: Ipratropium/Albuterol Sulfate 3 ML AMPUL.NEB INHALATION ×2 (07:51→20:12)
[2024-01-28] MEDS: Metoprolol Tartrate 50 MG Tablet PO ×2 (09:05→21:03)
[2024-01-28] MEDS: Ferrous Sulfate 325 MG Tablet PO (09:05)
[2024-01-28] MEDS: DULoxetine Hcl 60 MG Capsule PO (09:05)
[2024-01-28] MEDS: Ascorbic Acid 500 MG Tablet PO (09:05)
[2024-01-28] MEDS: 0.9% Saline Lock 10 ML Syringe IV (09:10)
--- NOTE | 2024-01-28 10:19 | CASEMGMT ---
Addendum entered by Ara Mendez 01/28/24 14:50: Dr. Willingham gives this RN CM IV ATB Rx. Rx scanned and placed into pt chart. CAROLANN Foss corporate law assistant to send Rx to [facility] and [facility]. Dr. Plasencia states that the pt will not be discharging for about 48 hours as the pleural fluid results will be pending. [facility] and [facility] notified and updated. Addendum entered by Ara Mendez 01/28/24 11:19: Anna Marie from [facility] returns call and states that they are able to accept the pt with SOC contingent on the DC date for the pt. CM to follow. Original Note: RN MAISHA to pt room at this time. Pt is planned for a thoracentesis today. ID to then decipher what IV ATB the pt will need moving forward. Pt states again that he he would like [facility] for the infusion company. At this time, the pt states that so much has been going on and that he lost the HHC list that was given. Pt states that he does not need or want another HHC list and states that he would like to go through [facility]. TC to Anna Marie and referral made. Awaiting return response. CM to follow. Pt reports that he has had IV ATB infusions at home before and that he would be able to be the TCG. Pt states that he lives alone but he does have a SO and a daughter that will be able to provide assistance as needed. Pt is adamant about refusing SNF needs. CM to follow.
[2024-01-28 11:23] LABS: Partial Thromboplast Time 34.4 Seconds (24.1-36.2)
--- NOTE | 2024-01-28 12:22 | CASEMGMT ---
Discharge Planning Referral sent to I via [facility]. Prudence Felton DC Planning Asst.
[2024-01-28] MEDS: Lidocaine 2% (20 ml mdv) 20 ML Vial INFILT (12:29)
--- NOTE | 2024-01-28 12:40 | RAD_ITS ---
STUDY: X-RAY CHEST REASON FOR EXAM: Male, 78 years old. Post thoracentesis TECHNIQUE: Inspiration and expiration views. COMPARISON: Comparison is made with prior study January 25, 2024. FINDINGS: The patient is status post right thoracentesis. There is no evidence of pneumothorax. Residual bibasilar pleural-parenchymal changes are seen. A right-sided PICC line catheter seen with the tip in the junction of the superior vena cava and right atrium. RAD/Chest Insp/Exp 2 View IMPRESSION: Status post right thoracentesis. No evidence of pneumothorax. Residual bibasilar pleural-parenchymal changes. Electronically Signed: Osvaldo Curtis MD at 13:04 EDT ,
--- NOTE | 2024-01-28 12:45 | PCM.OP.PRO ---
Procedure Report Date of Procedure: 01/28/24 Assessment & Plan Assessment/Plan (1) Pleural effusion, right: PLAN: PROCEDURE: Ultrasound Guided Thoracentesis ORDERING PROVIDER: Dr. Willingham INDICATION: Male, 78 years old. Right pleural effusion. PROVIDER: CHEO Bruce PROCEDURE: The risks, benefits, and alternatives to the procedure were explained to the patient. The specific risks of bleeding, infection, and pneumothorax requiring chest tube insertion were discussed and accepted. Written informed consent was obtained. The patient was placed in the sitting, upright position. Ultrasonographic evaluation of the bilateral lower pleural spaces was carried out. An adequate pocket was identified in the right lower pleural space.The overlying skin was prepped and draped in sterile fashion. 2% lidocaine was administered subcutaneously for local anesthesia. Under ultrasound guidance, a 5-Hungarian thoracentesis needle/catheter system was advanced into the right posterior lower pleural fluid collection. 1800 ml of clear light red/jaci colored fluid was drained. 100 mL of this fluid was collected and sent to laboratory for analysis. The catheter was removed, and a sterile dressing was applied. The patient tolerated the procedure well. A chest x-ray was ordered. IMPRESSION: Successful ultrasound-guided thoracentesis of right pleural effusion. Procedures Radiology Radiology US Procedures: 04644 Thoracentesis
[2024-01-28 13:24] LABS: Cytology, Body Fluid / CSF SEE PATHOLOGY REPORT
[2024-01-28 13:44] LABS: Body Fluid Mononuclear WBC % 85.2 %; Body Fluid Polynuclear WBC # 0.092 10^3/uL; Body Fluid Polynuclear WBC % 14.8 %; Red Cell Count/Body Fluid 0.015 10^6/ul; White Blood Count/Body Fluid 0.622 10^3/uL
[2024-01-28 13:56] LABS: Auto B Fluid Analyzer BKGD Ct COUNTS W/IN LIMITS (W/IN LIMITS)
[2024-01-28 13:57] LABS: Appearance/Body Fluid CLOUDY; Color/Body Fluid PINK; Source- Body Fluid PLEURAL FLUID
[2024-01-28 15:10] LABS: Lymphocytes 36 %; Macrophages 49 %; Monocytes 3 %; Neutrophil (Segs) 12 %
[2024-01-28 15:11] LABS: Body Fluid QC Type(s) BF2Q
[2024-01-28] MEDS: HEPARIN/D5w 25,000 UNITS 25,000 UNITS/250 ML IV.SOLN. 11 UNITS CONT INF (15:43)
[2024-01-28] MEDS: Heparin Injection (Vial) 5,000 UNIT/ML VIAL IV (15:44)
--- NOTE | 2024-01-28 15:48 | PCM.PN.ID ---
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 Seen by pulm, pending thoracentesis; will order repeat cxr with lateral decub view to see if effusion is improved. TTE showed no veg, MARIAA also with no veg. Repeat bcx neg since 01/22/24. Sputum with rare serratia and yeast. UAgs neg. Bcx showing MSSA. Cont cefazolin. Pleural fluid with neg gram stain, small amount wbc.. Will order single lumen picc and iv cefazolin 2gm q8h for 4 weeks, stop date 02/19/24 with weekly bmp and cbc. Will follow. ID followup in 3 weeks. (2) Pleural effusion, right: (3) Pneumonia: (4) History of mechanical aortic valve replacement: (5) History of endocarditis:
--- NOTE | 2024-01-28 19:20 | PN.HOSP_ITS ---
Reason for Visit Reason for Visit: Diagnoses Pneumonia, unspecified organism (01/21/24) Pleural effusion, not elsewhere classified (01/21/24) Bacteremia (01/21/24) Personal history of other diseases of the circulatory system (01/21/24) Presence of prosthetic heart valve (01/21/24) Subjective Subjective Patient was seen and examined today, during our conversation, he stated that recently at [facility] they recommended he undergo valve replacement, he was against this and did not follow the recommendations. Patient underwent ultrasound- guided thoracentesis of his right pleural effusion today, 1800 cc of clear light red-colored fluid was obtained. According to infectious disease documentation today, a single-lumen PICC line was ordered, patient will be placed on Ancef 2 g every 8 hours x 4 weeks with weekly BMP and CBC. Objective Data Objective Data Vital Signs: Vital Signs Temp Pulse Resp BP Pulse Ox O2 Del Method O2 Flow Rate 97.2 F L 69 16 104/62 98 Room Air 3 01/28/24 15:26 01/28/24 15:26 01/28/24 15:26 01/28/24 15:26 01/28/24 15:26 01/28/24 15:26 01/22/24 03:10 Oxygen Flow Rate (L/min) 3 Oxygen Delivery Method Room Air Weight: 104.236 kg Body Mass Index (BMI) 31.1 Intake & Output: Intake and Output for Last 24 Hours 01/26/24 01/27/24 01/28/24 23:59 23:59 23:59 Intake Total 1696.30 / 1936.30 1879.41 / 2119.41 1289.25 / 1289.25 Output Total 150 / 375 525 / 525 1800 / 1800 Balance 1546.30 / 1561.30 1354.41 / 1594.41 -510.75 / -510.75 Lab / Micro Data 01/28/24 05:16 01/28/24 05:16 Labs: Laboratory Results - last 24 hr 01/27/24 23:00: APTT 48.4 H 01/28/24 05:16: WBC 8.3, RBC 4.07 L, Hgb 12.4 L, Hct 37.9 L, MCV 93.1, MCH 30.5, MCHC 32.7, RDW Std Deviation 49.3 H, RDW Coeff of Rich 14.5, Plt Count 195, MPV 10.4, Immature Gran % (Auto) 1.100 H, Neut % (Auto) 69.3, Lymph % (Auto) 9.3 L, [place] % (Auto) 14.8 H, Eos % (Auto) 4.4, Baso % (Auto) 1.1 H, Absolute Neuts (auto) 5.7, Absolute Lymphs (auto) 0.77 L, Nucleated RBC % 0, APTT 57.3 H, Sodium 138, Potassium 4.0, Chloride 105, Carbon Dioxide 26.0, Anion Gap 7, BUN 10, Creatinine 0.95, Estim Creat Clear Calc 80.00, Est GFR (MDRD) Af Amer 99, Est GFR (MDRD) Non-Af 82, BUN/Creatinine Ratio 10.5, Glucose 101, Calcium 8.6, T otal Bilirubin 1.10 H, AST 43 H, ALT 17, Alkaline Phosphatase 180 H, Total Protein 7.2, Albumin 2.9 L, Globulin 4.3 H, Albumin/Globulin Ratio 0.7 L 01/28/24 11:00: APTT 34.4 01/28/24 : Fluid Source PLEURAL FLUID, Fluid Color PINK, Fluid Appearance CLOUDY, Fluid WBC 0.622, Fluid RBC 0.015, Fluid Tot Cell Count 0.680, Fld Polynuclear WBCs # 0.092, Fld Polynuclear WBCs % 14.8, Fluid Mononuclear WBCs 0.530, Fld Mononuclear WBCs % 85.2, Fluid Neutrophils 12, Fluid Lymphocytes 36, Fluid Monocytes 3, Fluid Macrophages 49, Fl Pathologist Comment May follow, Fluid Comment 2 SEE COMMENT Micro: Microbiology 01/28/24 Unknown Fluid - Pleural (Lung) Gram Stain - Final 01/23/24 08:36 Blood Culture (Wb) - Anticubital Left Blood Culture - Final No growth in 5 days. 01/22/24 08:49 Blood Culture (Wb) - Anticubital Right Blood Culture - Final No growth in 5 days. 01/22/24 Unknown Sputum, Expectorated/Coughed Gram Stain - Final 01/22/24 Unknown Sputum, Expectorated/Coughed Respiratory Culture - Final Presumptive C albicans Serratia marcescens 01/22/24 00:49 Urine, Clean Catch Legionella Antigen - Final 01/22/24 00:49 Urine, Clean Catch Streptococcus pneumoniae Antigen (M - Final Radiography Diagnostic Testing: Radiology Impression Chest X-Ray 01/28/24 12:40 IMPRESSION: Status post right thoracentesis. No evidence of pneumothorax. Residual bibasilar pleural-parenchymal changes. Electronically Signed: Osvaldo Curtis MD at 13:04 EDT , Physical Exam Const alert, oriented x3 and no apparent distress General Appearance: cooperative, well kempt and well developed Orientation / Consciousness: awake, oriented to person, oriented to place and oriented to time HEENT normocephalic, head/scalp atraumatic and moist oral mucous membranes Eyes PERRL, EOMs intact bilaterally and conjunctivae normal Neck supple, no JVD, thyroid normal and no carotid bruits General: trachea midline Resp normal respiratory effort, no retractions, no use of accessory muscles and clear to auscultation bilaterally Auscultation: Negative for rales, rhonchi or wheezes Cardio regular rate, regular rhythm, S1 normal heart sound, S2 normal heart sound, no murmurs, no rub and no gallops GI normal to inspection, nondistended, normoactive bowel sounds, soft to palpation, non-tender and non-distended Extremity no clubbing, cyanosis or edema Skin no rashes or lesions noted General Skin Exam: no breakdown Neuro oriented x3, CN's II-XII intact bilaterally, moves all extremities, no focal motor deficits and no sensory deficits noted Sensorium / Orientation: awake and alert Speech: speech normal Psych affect normal Assessment & Plan Assessment/Plan (1) Bacteremia: PLAN: Plan 1. Bacteremia with MSSA-again patient will be set up for a 4-week course of IV antibiotics. 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-patient was restarted on warfarin, he will remain on IV heparin for now Total clinical time spent by myself addressing the patient's medical issues, reviewing all of his data, and collaborating with patient's care team: 35 minutes Charges/Coding Visit Charges Inpatient E&M: 84858 Subs Hosp L2
[2024-01-28] MEDS: MELATONIN 10 MG TABLET PO (21:03)
[2024-01-28 21:36] LABS: Partial Thromboplast Time 65.2 Seconds (24.1-36.2)
[2024-01-29] VITALS (8 sets, daily range): BP systolic 104–128; BP diastolic 60–74; PULSE 64–81; RESP 14–18; TEMP 36.4–36.7; O2SAT 95–99; BMI 31.0
[2024-01-29] MEDS: LORazepam 0.5 MG Tablet PO ×2 (03:03→21:35)
[2024-01-29 03:58] LABS: Absolute Lymphocyte Count 0.86 X10^3/uL (0.83-4.51); Absolute Neutrophil Count 6.2 X10^3/uL (2.0-7.7); Basophil# 0.08 X10^3/uL; Basophil% 0.9 % (0-1); Eosinophil# 0.36 X10^3/uL; Eosinophils% 4.1 % (0-5); Lymphocyte # 0.86 X10^3/ul (0.83-4.51); Lymphocyte % 9.7 % (19-41); Mean Corp Hgb Conc 32.4 g/dL (32-36); Mean Corpuscular Volume 92.5 fL (80-94); Mean Platelet Vol. 10.5 fl (6.2-12.0); Monocyte% 13.6 % (0-10); NRBC Flagged by Analyzer 0 % (0-5); Neutrophil # 6.24 X10^3/uL (2.7-7.7); Neutrophil % 70.5 % (47-70); Platelet Count 193 K/mm3 (150-450); RBC Distribution Width CV 14.6 % (11.6-14.6); RBC Distribution Width SD 49.2 fl (35.1-43.9); White Blood Count 8.9 K/mm3 (4.4-11.0)
[2024-01-29 04:34] LABS: International Normalized Ratio 1.4; Prothrombin Time (Protime)PT. 17.1 SECONDS (11.7-14.9)
[2024-01-29 04:35] LABS: Partial Thromboplast Time 114.6 Seconds (24.1-36.2)
[2024-01-29] MEDS: Cefazolin 2 GM in 0.9% Normal Saline (100mL Bag) 100 ML IV ×3 (05:32→21:36)
[2024-01-29] MEDS: Ipratropium/Albuterol Sulfate 3 ML AMPUL.NEB INHALATION ×2 (07:48→20:18)
[2024-01-29] MEDS: Ascorbic Acid 500 MG Tablet PO (10:29)
[2024-01-29] MEDS: Ferrous Sulfate 325 MG Tablet PO (10:29)
[2024-01-29] MEDS: DULoxetine Hcl 60 MG Capsule PO (10:29)
[2024-01-29] MEDS: 0.9% Saline Lock 10 ML Syringe IV ×2 (10:29→21:36)
[2024-01-29] MEDS: Metoprolol Tartrate 50 MG Tablet PO ×2 (10:30→21:36)
[2024-01-29 10:53] LABS: Partial Thromboplast Time 55.6 Seconds (24.1-36.2)
[2024-01-29 11:09] LABS: ALB/GLOB Ratio 0.7 RATIO (0.9-2.4); AST(SGOT) 44 U/L (15-37); Alanine Aminotransfer ALT/SGPT 22 U/L (16-61); Albumin, Serum 2.9 g/dL (3.2-5.0); Alkaline Phosphatase 170 U/L (45-117); Anion Gap 7 (5-15); BUN 9 mg/dL (7-18); BUN/Creat Ratio 10.2 RATIO (10-20); Calcium,Total 9.1 mg/dL (8.5-10.1); Chloride 106 mmol/L (98-107); Creatinine, Serum 0.88 mg/dL (0.70-1.30); EST Glomerular Filtration Rate 88 mL/min (>60); Est Glom Filt Rate - Afr Amer 107 mL/min (>60); Estimated Creatinine Clearance 86.27 ml/min; Globulin 4.1 g/dL (2.2-4.2); Glucose 102 mg/dL (74-106); Potassium 4.1 mmol/L (3.5-5.1); Sodium Level 139 mmol/L (136-145)
--- NOTE | 2024-01-29 11:16 | CASEMGMT ---
Addendum entered by Ara Mendez 01/29/24 12:38: Dr. Plasencia states to this RN MAISHA that the pt will need to be anticoagulated and will not be able to DC today. Dr. Plasencia anticipates that DC will more likely be tomorrow. [facility] and [facility] updated. Addendum entered by Ara Mendez 01/29/24 12:26: [facility] states that the pharmacy charges will be a total of 153$/week. [facility] states that they will be able to deliver the medication by the end of the day today. RN CM to pt room at this time. Pt states that he is OK with this zhang. Pt informed that HH will start care tomorrow morning and that [facility] will deliver the medication today. Pt states that he has a ride home today and denies concerns about transportation at this time. This RN CM also spoke with the pt RN. Plan as of now is for the pt to get the afternoon dose of the ATB and DC subsequently. Message sent to Dr. Willingham to see if the ID doctor is OK with the pt missing the IV ATB dose tonight. Will follow. Original Note: Dr. Plasencia states that the pt will be discharging today now instead of tomorrow. Dr. Plasencia confirms this with Dr. Willingham. This RN CM notified [facility] via [employer]. TC to [facility] and Anna Marie notified. Anna Marie from [facility] states that they will be able to start care tomorrow morning and denies further needs at this time. DC plan updated. Will follow.
[2024-01-29 13:54] LABS: Pathologist Comment/Body Fluid Reviewed
[2024-01-29 17:41] LABS: Partial Thromboplast Time 63.8 Seconds (24.1-36.2)
--- NOTE | 2024-01-29 17:43 | PCM.PN.HOSP ---
Reason for Visit Reason for Visit: Diagnoses Pneumonia, unspecified organism (01/21/24) Pleural effusion, not elsewhere classified (01/21/24) Bacteremia (01/21/24) Personal history of other diseases of the circulatory system (01/21/24) Presence of prosthetic heart valve (01/21/24) Subjective Subjective Patient was seen and examined today, his INR this morning was 1.4, I elected to give him additional Coumadin today in addition to his regular dose, I will repeat the INR tomorrow morning to see if the patient will be stable for discharge home. Objective Data Objective Data Vital Signs: Vital Signs Temp Pulse Resp BP Pulse Ox O2 Del Method O2 Flow Rate 98.0 F 78 18 122/74 H 97 Room Air 3 01/29/24 15:05 01/29/24 15:05 01/29/24 15:05 01/29/24 15:05 01/29/24 15:05 01/29/24 16:00 01/22/24 03:10 Oxygen Flow Rate (L/min) 3 Oxygen Delivery Method Room Air Weight: 104 kg Body Mass Index (BMI) 31.0 Intake & Output: Intake and Output for Last 24 Hours 01/27/24 01/28/24 01/29/24 23:59 23:59 23:59 Intake Total 1879.41 / 2119.41 1965.62 / 1965.62 296.22 / 296.22 Output Total 525 / 525 3850 / 3850 700 / 700 Balance 1354.41 / 1594.41 -1884.38 / -1884.38 -403.78 / -403.78 Lab / Micro Data 01/29/24 03:49 01/29/24 03:49 Labs: Laboratory Results - last 24 hr 01/28/24 21:07: APTT 65.2 H 01/28/24 : Fl Pathologist Comment Reviewed 01/29/24 03:49: WBC 8.9, RBC 4.00 L, Hgb 12.0 L, Hct 37.0 L, MCV 92.5, MCH 30.0, MCHC 32.4, RDW Std Deviation 49.2 H, RDW Coeff of Rich 14.6, Plt Count 193, MPV 10.5, Immature Gran % (Auto) 1.200 H, Neut % (Auto) 70.5 H, Lymph % (Auto) 9.7 L, [place] % (Auto) 13.6 H, Eos % (Auto) 4.1, Baso % (Auto) 0.9, Absolute Neuts (auto) 6.2, Absolute Lymphs (auto) 0.86, Nucleated RBC % 0, PT 17.1 H, INR 1.4, APTT 114.6 H*, Sodium 139, Potassium 4.1, Chloride 106, Carbon Dioxide 26.0, Anion Gap 7, BUN 9, Creatinine 0.88, Estim Creat Clear Calc 86.27, Est GFR (MDRD) Af Amer 107, Est GFR (MDRD) Non-Af 88, BUN/Creatinine Ratio 10.2, Glucose 102, Calcium 9.1, Total Bilirubin 0.90, AST 44 H, ALT 22, Alkaline Phosphatase 170 H, Total Protein 7.0, Albumin 2.9 L, Globulin 4.1, Albumin/Globulin Ratio 0.7 L 01/29/24 10:34: APTT 55.6 H 01/29/24 17:06: APTT 63.8 H Micro: Microbiology 01/28/24 Unknown Fluid - Pleural (Lung) Gram Stain - Final 01/23/24 08:36 Blood Culture (Wb) - Anticubital Left Blood Culture - Final No growth in 5 days. 01/22/24 08:49 Blood Culture (Wb) - Anticubital Right Blood Culture - Final No growth in 5 days. 01/22/24 Unknown Sputum, Expectorated/Coughed Gram Stain - Final 01/22/24 Unknown Sputum, Expectorated/Coughed Respiratory Culture - Final Presumptive C albicans Serratia marcescens 01/22/24 00:49 Urine, Clean Catch Legionella Antigen - Final 01/22/24 00:49 Urine, Clean Catch Streptococcus pneumoniae Antigen (M - Final Physical Exam Narrative alert, oriented x3 and no apparent distress General Appearance: cooperative, well kempt and well developed Orientation / Consciousness: awake, oriented to person, oriented to place and oriented to time HEENT normocephalic, head/scalp atraumatic and moist oral mucous membranes Eyes PERRL, EOMs intact bilaterally and conjunctivae normal Neck supple, no JVD, thyroid normal and no carotid bruits General: trachea midline Resp normal respiratory effort, no retractions, no use of accessory muscles and clear to auscultation bilaterally Auscultation: Negative for rales, rhonchi or wheezes Cardio regular rate, regular rhythm, S1 normal heart sound, S2 normal heart sound, no murmurs, no rub and no gallops, mechanical heart sound is noted over the precordium on auscultation GI normal to inspection, nondistended, normoactive bowel sounds, soft to palpation, non-tender and non-distended Extremity no clubbing, cyanosis or edema Skin no rashes or lesions noted General Skin Exam: no breakdown Neuro oriented x3, CN's II-XII intact bilaterally, moves all extremities, no focal motor deficits and no sensory deficits noted Sensorium / Orientation: awake and alert Speech: speech normal Psych affect normal Assessment & Plan Assessment/Plan (1) Bacteremia: PLAN: Plan 1. Bacteremia with MSSA-again patient will be set up for a 4-week course of IV antibiotics. 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-patient was restarted on warfarin, he will remain on IV heparin for now, INR will be rechecked tomorrow morning Total clinical time spent by myself addressing the patient's medical issues, reviewing all of his data, and collaborating with patient's care team: 35 minutes Charges/Coding Visit Charges Inpatient E&M: 49858 Subs Hosp L2
[2024-01-29] MEDS: HEPARIN/D5w 25,000 UNITS 25,000 UNITS/250 ML IV.SOLN. 8 UNITS CONT INF (17:56)
[2024-01-29] MEDS: MELATONIN 10 MG TABLET PO (21:35)
[2024-01-30] VITALS (7 sets, daily range): BP systolic 107–113; BP diastolic 58–64; PULSE 72–78; RESP 16; TEMP 36–36.8; O2SAT 95–96; BMI 31.0
[2024-01-30 06:32] LABS: International Normalized Ratio 1.8; Prothrombin Time (Protime)PT. 20.6 SECONDS (11.7-14.9)
[2024-01-30] MEDS: 0.9% Saline Lock 10 ML Syringe IV (06:33)
[2024-01-30] MEDS: Cefazolin 2 GM in 0.9% Normal Saline (100mL Bag) 100 ML IV ×3 (06:33→19:03)
[2024-01-30 06:34] LABS: Partial Thromboplast Time 61.8 Seconds (24.1-36.2)
[2024-01-30] MEDS: Ipratropium/Albuterol Sulfate 3 ML AMPUL.NEB INHALATION ×3 (07:03→19:18)
[2024-01-30] MEDS: Ferrous Sulfate 325 MG Tablet PO (08:23)
[2024-01-30] MEDS: DULoxetine Hcl 60 MG Capsule PO (08:23)
[2024-01-30] MEDS: Metoprolol Tartrate 50 MG Tablet PO (08:23)
[2024-01-30] MEDS: LORazepam 0.5 MG Tablet PO (08:23)
[2024-01-30] MEDS: Ascorbic Acid 500 MG Tablet PO (08:23)
--- NOTE | 2024-01-30 11:38 | CASEMGMT ---
Dr. Plasencia states that the pt INR is still low and plans to administer an additional dose of the pt Coumadin and then draw an INR at 1400 today. If the level is therapeutic, the pt will be able to DC today. [facility] and [facility] updated of the plan.
[2024-01-30 13:02] LABS: Partial Thromboplast Time 72.1 Seconds (24.1-36.2)
[2024-01-30 14:44] LABS: International Normalized Ratio 2.1; Prothrombin Time (Protime)PT. 23.7 SECONDS (11.7-14.9)
--- NOTE | 2024-01-30 15:28 | DCINST_ITS ---
Discharge Instructions Diet Discharge Diet: No restrictions Activity Discharge Activity: Return to Normal Activity Weight Bearing Status: Full weight bearing Follow Up Care Test Results: Test results from this visit will be discussed in further detail at your follow- up appointment, if applicable. Discharge Plan Admission Admit Date/Time: 01/21/24 18:53 Primary Reason for Your Visit: staph bacteremia Attending Provider: Donaldo Kincaid Primary Care Provider: Donaldo Larson Consulting Providers: Cedrick Willingham; Zhang Florentino; Sergey Palm; Tom Resendiz; Jose De Jesus Betts; Jose Siddiqi; Cliff Stubbs; Ja Hull; Kanchan Carter; Waylon Hernandez; dEuardo Urena; Suze Miranda; Sridhar Hunt; Watson Palm; David Johnson; Denny Herbert; Zuhair Miller; Андрей Ndiaye; Chantale Chang; Jose Ayon Instructions Patient Instructions: STEPHANIE RN Thoracentesis Dc Discharge Orders/Prescriptions Prescriptions: New cefazolin 2 gram recon soln 2 g IV Q8H 21 Days Rx Instructions: stop date 02/19/24. Dx MSSA bacteremia. Weekly bmp and cbc. Fax to [phone]. Routine picc care per protocol. Continued lorazepam 0.5 mg tablet 0.5 mg PO BID ferrous sulfate [FeroSul] 325 mg (65 mg iron) Tablet 325 mg PO LUNCH Qty: 30 0RF melatonin 10 mg capsule 10 mg PO QHS 30 Days Qty: 0 0RF ascorbic acid (vitamin C) [C-500] 500 mg tablet 500 mg PO DAILY b12 gummy 1 gummy PO DAILY warfarin 1 mg tablet 1 mg PO .COMPLEX Qty: 180 3RF Protocol: Dose Management Condition: Sunday Dose/Route: 6 mg Instruction: 1 x 1 mg tablet, 1 x 5 mg tablet Condition: Sunday Dose/Route: 6 mg Instruction: 1 x 1 mg tablet, 1 x 5 mg tablet Condition: Sunday Dose/Route: 6 mg Instruction: 1 x 1 mg tablet, 1 x 5 mg tablet Condition: Sunday Dose/Route: 6 mg Instruction: 1 x 1 mg tablet, 1 x 5 mg tablet Condition: Dose/Route: 6 mg Instruction: 1 x 1 mg tablet, 1 x 5 mg tablet Condition: Sunday Dose/Route: 6 mg Instruction: 1 x 1 mg tablet, 1 x 5 mg tablet Condition: Sunday Dose/Route: 6 mg Instruction: 1 x 1 mg tablet, 1 x 5 mg tablet Protocol Text: Adjustment Start Date: Sunday08/13/23 INR Value: 2.9 INR Date: 08/09/23 Recheck Date: 08/27/23 Rx Instructions: daily with a 5mg tablet to = 6 mg: dose changes often warfarin 5 mg tablet 5 mg PO .COMPLEX Qty: 90 3RF Protocol: Dose Management Condition: Sunday Dose/Route: 6 mg Instruction: 1 x 1 mg tablet, 1 x 5 mg tablet Condition: Sunday Dose/Route: 6 mg Instruction: 1 x 1 mg tablet, 1 x 5 mg tablet Condition: Sunday Dose/Route: 6 mg Instruction: 1 x 1 mg tablet, 1 x 5 mg tablet Condition: Sunday Dose/Route: 6 mg Instruction: 1 x 1 mg tablet, 1 x 5 mg tablet Condition: Dose/Route: 6 mg Instruction: 1 x 1 mg tablet, 1 x 5 mg tablet Condition: Sunday Dose/Route: 6 mg Instruction: 1 x 1 mg tablet, 1 x 5 mg tablet Condition: Sunday Dose/Route: 6 mg Instruction: 1 x 1 mg tablet, 1 x 5 mg tablet Protocol Text: Adjustment Start Date: Sunday08/13/23 INR Value: 2.9 INR Date: 08/09/23 Recheck Date: 08/27/23 Rx Instructions: 5 mg orally daily with a 1 mg tablet to = 6mg: dose changes often; metoprolol tartrate 50 mg tablet 50 mg PO BID Qty: 180 3RF Rx Instructions: TAKE 1 TABLET BY MOUTH TWICE A DAY duloxetine 60 mg capsule,delayed release(DR/EC) 60 mg PO DAILY Qty: 90 0RF Held cephalexin 500 mg capsule 1,000 mg PO TID Hold Instructions: Resume on 02/19/24. Resume on 02/19/2024 when IV antibiotics are discontinued Discontinued amoxicillin-pot clavulanate 875-125 mg tablet 1 tab PO Q12H 10 Days Qty: 20 0RF Referrals / Follow Up: Donaldo Larson DO [Primary Care Provider] - Disposition Disposition (needs filled in before D/C Order can be placed): Home, Self Care
--- NOTE | 2024-01-30 15:55 | DS.PCM_ITS ---
Providers Date of Admission: 01/21/24 Date of Discharge: 01/30/24 Primary Care Physician: Dr. Donaldo Larson, Consultations 01/21/24 20:47 Consult: Infectious Disease Routine Consulting Provider: Cedrick Willingham Reason for Consult: Staph aureus bacteremia. H/o AV vegetation, mech AVR EMERGENT Consult: No MD Notified: Yes Date Notified: 01/21/24 Time Notified: 20:47 Method of Notification: Text 01/22/24 11:00 Consult: Claims Customer Service Representative / Pulmonary Medicine Routine Consulting Provider: Intensivists/Pulmonary Med Reason for Consult: R effusion, staph aureus bacteremia EMERGENT Consult: No MD Notified: Yes Date Notified: 01/22/24 Time Notified: 11:18 Method of Notification: Text Reason For Visit: STAPH BACTEREMIA Diagnosis Discharge Diagnosis (1) Bacteremia: Status: Acute Code(s): R78.81 - Bacteremia Plan 1. Bacteremia with MSSA-again patient will be set up for a 4-week course of IV antibiotics. 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-patient was restarted on warfarin, he will remain on IV heparin for now, INR will be rechecked tomorrow morning Total clinical time spent by myself addressing the patient's medical issues, reviewing all of his data, and collaborating with patient's care team: 35 minutes Medications at Discharge Home Medications ferrous sulfate 325 mg (65 mg iron) tablet (FeroSul) 325 mg PO LUNCH suppliment #30 tabs 05/04/23 melatonin 10 mg capsule 10 mg PO QHS SLEEP 30 days #0 caps 05/04/23 lorazepam 0.5 mg tablet 0.5 mg PO BID anxiety 05/21/23 warfarin 1 mg tablet 1 mg PO .COMPLEX BLOOD THINNER #180 tabs 08/02/23 warfarin 5 mg tablet 5 mg PO .COMPLEX BLOOD THINNER #90 tabs 08/02/23 metoprolol tartrate 50 mg tablet 50 mg PO BID BLOOD PRESSURE #180 TABLETS 12/17/23 duloxetine 60 mg capsule,delayed release 60 mg PO DAILY DEPRESSION #90 caps 12/24/23 ascorbic acid (vitamin C) 500 mg tablet (C-500) 500 mg PO DAILY suppliment 01/19/24 cephalexin 500 mg capsule 1,000 mg PO TID antibiotic 01/21/24 b12 gummy 1 gummy PO DAILY suppliment 01/26/24 cefazolin 2 gram intravenous solution 2 g IV Q8H 21 days 01/28/24 Hospital Course Operations None Procedures 2-D Echocardiogram, PICC line placement, Thoracentesis and - (Transesophageal echocardiogram) Summary of Care Provided Minutes Spent on Discharge: 32 Hospital Course: 78-year-old white male was seen in the emergency room at [facility] with a chief complaint of shortness of breath. He had been seen in the emergency room on January 19, 2024 and diagnosed with pneumonia and discharged on Augmentin and Zithromax. Patient stated that he is felt ill for the last 5 days prior to being seen in the ER, blood culture was obtained on January 19, 2024 and came back positive for Staph aureus which was oxacillin sensitive and the patient was called to come to the emergency room for evaluation. Labs obtained in the ER showed a normal white blood cell count at 10.2, chemistry profile was unremarkable, chest x-ray showed a right basilar infiltrate and effusion. Patient was admitted to PCU and started on IV vancomycin, he was seen in consultation by infectious diseases, transthoracic echocardiogram, transesophageal echocardiogram, and thoracentesis was performed. Follow-up blood cultures were negative, it was recommended that the patient have a PICC line inserted and have home IV antibiotics instituted. PICC line was inserted, on 01/30/2024, patient was seen and examined: On examination he appeared in good health and spirits. Vital signs as documented. Skin warm and dry and without overt rashes. Neck without JVD, neck was supple, trachea midline, thyroid was normal. Lungs clear bilaterally, normal air movement was noted. Heart exam notable for irregular rhythm, normal sounds and absence of murmurs, rubs or gallops. Abdomen unremarkable and without evidence of organomegaly, masses, or abdominal aortic enlargement. Bowel sounds are present, abdomen is not distended. Extremities nonedematous, no cyanosis was noted, no clubbing was noted. Neuro: Cranial nerves II through XII are grossly intact, no focal motor deficits were noted, sensation to light touch and pinprick intact, motor exam 5/5 throughout. Psych: Patient is alert and oriented x3, he does not appear anxious or depressed, he does not appear agitated. Patient appears stable for discharge home on 01/30/2024 Weight / BMI Weight Weight: 103.8 kg Body Mass Index (BMI) 31.0 ABG / Lab / Microbiology Data 01/29/24 03:49 01/29/24 03:49 Laboratory: Laboratory Results - last 24 hr 01/28/24 : Miscellaneous Cytology SEE PATHOLOGY REPORT 01/29/24 17:06: APTT 63.8 H 01/30/24 05:33: PT 20.6 H, INR 1.8, APTT 61.8 H 01/30/24 12:40: APTT 72.1 H 01/30/24 14:08: PT 23.7 H, INR 2.1 Microbiology: Microbiology 01/28/24 Unknown Fluid - Pleural (Lung) Gram Stain - Final 01/28/24 Unknown Fluid - Pleural (Lung) Body Fluid Culture - Preliminary No growth-Final to follow 01/28/24 Unknown Fluid - Pleural (Lung) Anaerobic Culture - Preliminary No growth in 48 hours. 01/23/24 08:36 Blood Culture (Wb) - Anticubital Left Blood Culture - Final No growth in 5 days. 01/22/24 08:49 Blood Culture (Wb) - Anticubital Right Blood Culture - Final No growth in 5 days. 01/22/24 Unknown Sputum, Expectorated/Coughed Gram Stain - Final 01/22/24 Unknown Sputum, Expectorated/Coughed Respiratory Culture - Final Presumptive C albicans Serratia marcescens 01/22/24 00:49 Urine, Clean Catch Legionella Antigen - Final 01/22/24 00:49 Urine, Clean Catch Streptococcus pneumoniae Antigen (M - Final D/C Instructions Discharge Diet: No restrictions Weight Bearing Status: Full weight bearing Meaningful Use Info Meaningful Use Meaningful Use Diagnoses (Choose all that apply): None applicable Ischemic Stroke Statin Dosing Therapy Reference: STATIN DOSE THERAPY REFERENCE: * Patients > 75 years receive moderate or high dose statin therapy. * Patients 75 years or YOUNGER should receive HIGH intensity statin dose unless contraindicated. You will be required to document reason for non-treatment if statin daily dose does not meet guidelines. HIGH DOSE STATIN THERAPY DAILY Atorvastatin > than or = to 40 mg Rosuvastatin > than or = to 20 mg Amlodipine + Atorvastatin > than or = to 2.5/40 mg Ezetimibe + Simvastatin 10/80 mg Simvastatin 80mg Discharge Plan Admission Admit Date/Time: 01/21/24 18:53 Primary Reason for Your Visit: staph bacteremia Attending Provider: Donaldo Kincaid Primary Care Provider: Donaldo Larson Consulting Providers: Cedrick Willingham; Zhang Florentino; Sergey Palm; Tom Resendzi; Jose De Jesus Betts; Jose Siddiqi; Cliff Stubbs; Ja Hull; Kanchan Carter; Waylon Hernandez; Eduardo Urena; Suze Miranda; Sridhar Hunt; Watson Kaur; David Johnson; Denny Herbert; Zuhair Miller; Андрей Ndiaye; Chantale Chang; Jose Ayon Instructions Patient Instructions: STEPHANIE RN Thoracentesis Dc Discharge Orders/Prescriptions Prescriptions: New cefazolin 2 gram recon soln 2 g IV Q8H 21 Days Rx Instructions: stop date 02/19/24. Dx MSSA bacteremia. Weekly bmp and cbc. Fax to [phone]. Routine picc care per protocol. Continued lorazepam 0.5 mg tablet 0.5 mg PO BID ferrous sulfate [FeroSul] 325 mg (65 mg iron) Tablet 325 mg PO LUNCH Qty: 30 0RF melatonin 10 mg capsule 10 mg PO QHS 30 Days Qty: 0 0RF ascorbic acid (vitamin C) [C-500] 500 mg tablet 500 mg PO DAILY b12 gummy 1 gummy PO DAILY warfarin 1 mg tablet 1 mg PO .COMPLEX Qty: 180 3RF Protocol: Dose Management Condition: Sunday Dose/Route: 6 mg Instruction: 1 x 1 mg tablet, 1 x 5 mg tablet Condition: Sunday Dose/Route: 6 mg Instruction: 1 x 1 mg tablet, 1 x 5 mg tablet Condition: Sunday Dose/Route: 6 mg Instruction: 1 x 1 mg tablet, 1 x 5 mg tablet Condition: Sunday Dose/Route: 6 mg Instruction: 1 x 1 mg tablet, 1 x 5 mg tablet Condition: Dose/Route: 6 mg Instruction: 1 x 1 mg tablet, 1 x 5 mg tablet Condition: Sunday Dose/Route: 6 mg Instruction: 1 x 1 mg tablet, 1 x 5 mg tablet Condition: Saturday Dose/Route: 6 mg Instruction: 1 x 1 mg tablet, 1 x 5 mg tablet Protocol Text: Adjustment Start Date: Sunday08/13/23 INR Value: 2.9 INR Date: 08/09/23 Recheck Date: 08/27/23 Rx Instructions: daily with a 5mg tablet to = 6 mg: dose changes often warfarin 5 mg tablet 5 mg PO .COMPLEX Qty: 90 3RF Protocol: Dose Management Condition: Sunday Dose/Route: 6 mg Instruction: 1 x 1 mg tablet, 1 x 5 mg tablet Condition: Sunday Dose/Route: 6 mg Instruction: 1 x 1 mg tablet, 1 x 5 mg tablet Condition: Sunday Dose/Route: 6 mg Instruction: 1 x 1 mg tablet, 1 x 5 mg tablet Condition: Sunday Dose/Route: 6 mg Instruction: 1 x 1 mg tablet, 1 x 5 mg tablet Condition: Dose/Route: 6 mg Instruction: 1 x 1 mg tablet, 1 x 5 mg tablet Condition: Sunday Dose/Route: 6 mg Instruction: 1 x 1 mg tablet, 1 x 5 mg tablet Condition: Sunday Dose/Route: 6 mg Instruction: 1 x 1 mg tablet, 1 x 5 mg tablet Protocol Text: Adjustment Start Date: Sunday08/13/23 INR Value: 2.9 INR Date: 08/09/23 Recheck Date: 08/27/23 Rx Instructions: 5 mg orally daily with a 1 mg tablet to = 6mg: dose changes often; metoprolol tartrate 50 mg tablet 50 mg PO BID Qty: 180 3RF Rx Instructions: TAKE 1 TABLET BY MOUTH TWICE A DAY duloxetine 60 mg capsule,delayed release(DR/EC) 60 mg PO DAILY Qty: 90 0RF Held cephalexin 500 mg capsule 1,000 mg PO TID Hold Instructions: Resume on 02/19/24. Resume on 02/19/2024 when IV antibiotics are discontinued Discontinued amoxicillin-pot clavulanate 875-125 mg tablet 1 tab PO Q12H 10 Days Qty: 20 0RF Referrals / Follow Up: Donaldo Larson DO [Primary Care Provider] - 02/13/24 10:00 am Disposition Disposition (needs filled in before D/C Order can be placed): Home, Self Care Charges/Coding Visit Charges Inpatient E&M: 39922 Disch Hosp >30min
--- NOTE | 2024-01-30 16:24 | CASEMGMT ---
Dr. Plasencia places DC for pt. TC to [facility] who states that they cannot deliver the medication until 1400 tomorrow d/t the late DC notice. TC to Dr. Willingham (ID) who states that the pt can receive the ATB infusion tonight around 1900 and then can DC subsequently. Dr. Willingham states that he is OK with the pt missing the morning dose tomorrow. Pt RN made aware. TC to Anna Marie at and updated. Anna Marie states that the [facility] company will be able to accommodate for this and a nurse plans to call the pt and coordinate timing. RN CM to pt room at this time. Pt updated with plan and pt states that he is happy with this and agreeable. Pt states that he has a ride home for tonight and denies concerns. Pt is aware that [facility] will deliver the medication tomorrow before 1400 and that the [facility] professional will be calling the pt. Pt denies further questions or concerns.
--- NOTE | 2024-01-30 16:30 | CASEMGMT ---
Discharge Planning Discharge instructions sent via [facility] to I. Prudence Felton DC Planning Asst.
== END 2024-01-30 20:20 | disposition home or self-care (01) | DRG 871 ==
LOC: ED 19:11 → PCU 20:12
PROVIDERS: Internal Medicine; Internal Medicine Critical Care Medicine; Internal Medicine Infectious Disease; Admitting Provider Internal Medicine; Emergency Provider Emergency Medicine; PCP Family Medicine; Visit Provider Internal Medicine
DX: R78.81 Bacteremia (principal); J18.9 Pneumonia, unspecified organism; I48.20 Chronic atrial fibrillation, unspecified; E87.1 Hypo-osmolality and hyponatremia; I50.22 Chronic systolic (congestive) heart failure; J90 Pleural effusion, not elsewhere classified; D63.8 Anemia in other chronic diseases classified elsewhere; I11.0 Hypertensive heart disease with heart failure; F32.A Depression, unspecified; Z95.2 Presence of prosthetic heart valve; I45.10 Unspecified right bundle-branch block; E78.5 Hyperlipidemia, unspecified; B37.9 Candidiasis, unspecified; Z87.891 Personal history of nicotine dependence; F43.10 Post-traumatic stress disorder, unspecified; Z51.5 Encounter for palliative care; Z79.01 Long term (current) use of anticoagulants; Z66 Do not resuscitate; B95.61 Methicillin susceptible Staphylococcus aureus infection as the cause of diseases classified elsewhere; I49.3 Ventricular premature depolarization; R79.1 Abnormal coagulation profile; Z87.440 Personal history of urinary (tract) infections; Z86.79 Personal history of other diseases of the circulatory system
CPT/HCPCS: 32555; 36415; 36569; 71045; 71046; 80048; 80053; 80076; 80202; 81001; 83605; 83615; 83880; 84484; 85025; 85027; 85610; 85730; 87040; 87070; 87075; 87077; 87149; 87186; 87205; 87449; 87631; 87641; 88108; 88305; 88313; 89050; 93005; 93306; 93312; 93320; 93325; 94640; 94668; 96365; 96367; 97165; 99284; 99285; J7030; J7040; J7050; A4216; J0696

== ENCOUNTER 2024-02-13 10:39 | Outpatient (RCR) | payer MEDICARE, OTHER, SELFPAY ==
[2024-02-06 17:56] LABS: Hematocrit 38.5 % (40-54); Hemoglobin 12.3 g/dL (13.0-16.5); Mean Corp Hgb Conc 31.9 g/dL (32-36); Mean Corpuscular Hgb 30.7 pg (27.0-32.0); Mean Platelet Vol. 11.2 fl (6.2-12.0); Platelet Count 209 K/mm3 (150-450); RBC Distribution Width CV 14.8 % (11.6-14.6); Red Blood Count 4.01 M/mm3 (4.6-6.2); White Blood Count 6.9 K/mm3 (4.4-11.0)
[2024-02-06 18:16] LABS: Anion Gap 3 (5-15); BUN 13 mg/dL (7-18); BUN/Creat Ratio 13.1 RATIO (10-20); Calcium,Total 8.8 mg/dL (8.5-10.1); Chloride 107 mmol/L (98-107); EST Glomerular Filtration Rate 77 mL/min (>60); Est Glom Filt Rate - Afr Amer 93 mL/min (>60); Glucose 96 mg/dL (74-106); Potassium 4.2 mmol/L (3.5-5.1); Sodium Level 137 mmol/L (136-145)
[2024-02-13 11:27] LABS: Hematocrit 38.9 % (40-54); Hemoglobin 12.2 g/dL (13.0-16.5); Mean Corp Hgb Conc 31.4 g/dL (32-36); Mean Corpuscular Hgb 30.7 pg (27.0-32.0); Mean Platelet Vol. 11.3 fl (6.2-12.0); Platelet Count 206 K/mm3 (150-450); RBC Distribution Width CV 14.9 % (11.6-14.6); Red Blood Count 3.97 M/mm3 (4.6-6.2); White Blood Count 6.3 K/mm3 (4.4-11.0)
[2024-02-13 11:36] LABS: Anion Gap 2 (5-15); BUN 18 mg/dL (7-18); BUN/Creat Ratio 18.2 RATIO (10-20); Calcium,Total 8.8 mg/dL (8.5-10.1); Chloride 106 mmol/L (98-107); Creatinine, Serum 0.99 mg/dL (0.70-1.30); EST Glomerular Filtration Rate 78 mL/min (>60); Est Glom Filt Rate - Afr Amer 94 mL/min (>60); Glucose 108 mg/dL (74-106); Potassium 4.4 mmol/L (3.5-5.1); Sodium Level 136 mmol/L (136-145)
== END 2024-02-13 18:00 | disposition home or self-care (01) ==
LOC: HHLAB 10:39
PROVIDERS: PCP Family Medicine; Visit Provider Internal Medicine Infectious Disease
DX: J18.9 Pneumonia, unspecified organism (principal); B95.61 Methicillin susceptible Staphylococcus aureus infection as the cause of diseases classified elsewhere
CPT/HCPCS: 80048; 85027

== ENCOUNTER 2024-02-22 16:10 | Outpatient (RCR) | payer MEDICARE, OTHER, SELFPAY ==
[2024-02-22 17:00] LABS: International Normalized Ratio 2.9
== END 2024-02-22 18:00 | disposition home or self-care (01) ==
LOC: LAB 16:10
PROVIDERS: PCP Family Medicine; Referring Provider Nurse Practitioner Family; Visit Provider Nurse Practitioner Family
DX: Z79.01 Long term (current) use of anticoagulants (principal); Z95.2 Presence of prosthetic heart valve
CPT/HCPCS: 36415; 85610

== ENCOUNTER 2024-05-09 16:20 | Emergency (ER) | payer MEDICARE, OTHER, SELFPAY ==
[2024-05-09 16:20] VITALS: BP 105/59; PULSE 78; RESP 16; TEMP 36.6; O2SAT 99; BMI 29.8
--- NOTE | 2024-05-09 20:32 | ED.RN ---
Pt ambulating in triage area drinking coffee, no bleeding from nose since arrival, no signs of distress.
--- NOTE | 2024-05-09 20:59 | EDS_ITS ---
HPI History of Present Illness Chief Complaint: Nosebleed Informant: patient Narrative Narrative: Right side epistaxis prior to arrival. He is on warfarin. This is for paroxysmal A-fib. Unclear on his last INR check. Denies digital manipulation or blowing his nose. States there is mild bleed he bent over bled heavily for 10 minutes it stopped. He has had none since. No issues of similar in the past. He states his he is on he does not have a humidifier. 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 snf current use of anticoagulant Pure hypercholesterolemia Essential hypertension Other nursing home (current) drug therapy Nonrheumatic aortic (valve) insufficiency Nonrheumatic pulmonary valve insufficiency Palpitations 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) use of anticoagulants Gastrointestinal bleed Post traumatic stress disorder Panic disorder Anxiety Streptococcal endocarditis Colovesical fistula Sigmoid diverticulitis E coli bacteremia Fever Pneumaturia Gram-negative bacteremia Acute cystitis Acute diverticulitis Anxiety disorder History of endocarditis Home Medications ?Medication ?Instructions ?Recorded ?Last Taken ?Type ferrous sulfate 325 mg (65 mg 325 mg PO LUNCH suppliment #30 tabs 05/04/23 Unknown Rx iron) tablet (FeroSul) melatonin 10 mg capsule 10 mg PO QHS SLEEP 30 days #0 caps 05/04/23 04/24/23 Rx lorazepam 0.5 mg tablet 0.5 mg PO BID anxiety 05/21/23 01/21/24 History warfarin 1 mg tablet 1 mg PO .COMPLEX BLOOD THINNER 08/02/23 01/21/24 Rx #180 tabs warfarin 5 mg tablet 5 mg PO .COMPLEX BLOOD THINNER #90 08/02/23 01/21/24 Rx tabs metoprolol tartrate 50 mg tablet 50 mg PO BID BLOOD PRESSURE #180 12/17/23 01/21/24 Rx TABLETS duloxetine 60 mg capsule,delayed 60 mg PO DAILY DEPRESSION #90 caps 12/24/23 01/21/24 Rx release ascorbic acid (vitamin C) 500 mg 500 mg PO DAILY suppliment 01/19/24 Unknown History tablet (C-500) cephalexin 500 mg capsule 1,000 mg PO TID antibiotic 01/21/24 01/21/24 History b12 gummy 1 gummy PO DAILY suppliment 01/26/24 Unknown History cefazolin 2 gram intravenous 2 g IV Q8H 21 days 01/28/24 Unknown Rx solution Allergy/AdvReac Type Severity Reaction Status Date / Time fentanyl Allergy Severe Other Verified 05/09/24 16:23 levofloxacin AdvReac Severe Passed out Verified 05/09/24 16:23 Family History Father CAD (coronary artery disease) Surgical History History of prosthetic heart valve History of colonoscopy (~04/2023) History of mechanical aortic valve replacement History of herniorrhaphy History of colon resection H/O pulmonic valve replacement Social History Smoking Status: Former smoker how long ago did patient quit smokin years ago alcohol intake: current alcohol intake frequency: holidays/special occasions only Alcohol type: beer details: social caffeine: Yes Type: coffee Number of servings: 1 ROS ROS ED Constitutional Constitutional ED: Denies chills, fever(s) or sweats ENT ENT ED: Reports other Details: Right side nasal bleed ; Denies dysphagia or sore throat Cardiovascular Cardiovascular: Denies chest pain Respiratory/Chest Respiratory/Chest: Denies cough Gastrointestinal Gastrointestinal: Denies abdominal pain, diarrhea, nausea or vomiting Genitourinary Genitourinary ED: Denies hematuria Musculoskeletal Musculoskeletal: Denies back pain, extremity pain or neck pain Integumentary Denies rash or wounds Neurologic Neurologic: Denies headache(s), paresthesias or weakness EXAM Physical Exam Const Vital Signs: 05/09/24 16:20 Temperature 97.8 F Temperature Source Oral Pulse Rate 78 Respiratory Rate 16 Blood Pressure 105/59 L Blood Pressure Mean 74 Pulse Ox 99 Oxygen Delivery Method Nasal Cannula Positive well nourished and well developed General Appearance ED: well developed and NAD HEENT Reports moist mucous membranes HEENT Narrative: Right nare septal irritation no ulcerations no active bleeding. No clots. No posterior pharyngeal erythema or blood. normocephalic and atraumatic Eyes EOMs intact bilaterally and conjunctivae normal General Eye ED: Yes normal appearance of both eyes Neck no lymphadenopathy and supple General: Negative for tenderness Chest Wall Chest: Negative for tenderness Resp normal respiratory effort and normal air movement Effort and Inspection: symmetric chest movement; Negative for respiratory distress Cardio regular rate, regular rhythm and no murmurs Peripheral Pulses: pulses 2+ throughout GI normal to inspection, nondistended, normoactive bowel sounds and non-tender Palpation: Negative for guarding or rebound tenderness present Back/Spine no CVA tenderness and no thoracic nor lumbar tenderness Extremity normal to inspection Extremity Narrative: 1+ lower extremity swelling chronic General Extremety ED: Yes edema; Negative for tenderness General Extremity: edema Neuro oriented x3 and no sensory deficits noted Sensorium / Orientation: awake and alert Skin no rashes or lesions noted and no wounds MDM MDM MDM Narrative Medical decision making narrative: Interventions / MDM: Differential diagnosis: Right anterior epistaxis, chronic anticoagulation Diagnosis considered but do not suspect: N/A My EKG interpretation: N/A Imaging independently reviewed and interpreted by myself: N/A External documents reviewed: N/A Test considered but not ordered:N/A ED course: Vital stable no active bleeding. Will check his INR. INR 2.7. No active bleeding. Bactroban on a Q-tip placed on the right septum for moisturization. He will continue moisturization outpatient follow-up with ENT. Return precautions. All questions were answered. Re-evaluation: stable Disposition discussed with patient/family/significant other: Patient Case discussed with consulting clinician: N/A This note was generated with Scale[employer] dictation software. It may contain incorrect words, spelling, and punctuation that were not noted in checking the note before signing. Lab Data Attestation: I reviewed the patient's lab results. Labs: Laboratory Results - last 24 hr 05/09/24 21:09 PT 28.7 H INR 2.7 Discharge Plan Triage Chief Complaint: Nosebleed ED Provider: Jeancarlos Ritter Dx/Rx/DC Orders Clinical Impression: Right-sided epistaxis, Chronic anticoagulation Instructions: ED Epistaxis (Adult) Prescriptions: No Action lorazepam 0.5 mg tablet 0.5 mg PO BID ferrous sulfate [FeroSul] 325 mg (65 mg iron) Tablet 325 mg PO LUNCH Qty: 30 0RF melatonin 10 mg capsule 10 mg PO QHS 30 Days Qty: 0 0RF ascorbic acid (vitamin C) [C-500] 500 mg tablet 500 mg PO DAILY cephalexin 500 mg capsule 1,000 mg PO TID b12 gummy 1 gummy PO DAILY cefazolin 2 gram recon soln 2 g IV Q8H 21 Days Rx Instructions: stop date 02/19/24. Dx MSSA bacteremia. Weekly bmp and cbc. Fax to [phone]. Routine picc care per protocol. warfarin 1 mg tablet 1 mg PO .COMPLEX Qty: 180 3RF Protocol: Dose Management Condition: Sunday Dose/Route: 6 mg Instruction: 1 x 1 mg tablet, 1 x 5 mg tablet Condition: Sunday Dose/Route: 6 mg Instruction: 1 x 1 mg tablet, 1 x 5 mg tablet Condition: Sunday Dose/Route: 6 mg Instruction: 1 x 1 mg tablet, 1 x 5 mg tablet Condition: Sunday Dose/Route: 6 mg Instruction: 1 x 1 mg tablet, 1 x 5 mg tablet Condition: Dose/Route: 6 mg Instruction: 1 x 1 mg tablet, 1 x 5 mg tablet Condition: Sunday Dose/Route: 6 mg Instruction: 1 x 1 mg tablet, 1 x 5 mg tablet Condition: Sunday Dose/Route: 6 mg Instruction: 1 x 1 mg tablet, 1 x 5 mg tablet Protocol Text: Adjustment Start Date: Sunday02/22/24 INR Value: 2.9 INR Date: 02/22/24 Recheck Date: 03/07/24 Rx Instructions: daily with a 5mg tablet to = 6 mg: dose changes often warfarin 5 mg tablet 5 mg PO .COMPLEX Qty: 90 3RF Protocol: Dose Management Condition: Sunday Dose/Route: 6 mg Instruction: 1 x 1 mg tablet, 1 x 5 mg tablet Condition: Sunday Dose/Route: 6 mg Instruction: 1 x 1 mg tablet, 1 x 5 mg tablet Condition: Sunday Dose/Route: 6 mg Instruction: 1 x 1 mg tablet, 1 x 5 mg tablet Condition: Sunday Dose/Route: 6 mg Instruction: 1 x 1 mg tablet, 1 x 5 mg tablet Condition: Dose/Route: 6 mg Instruction: 1 x 1 mg tablet, 1 x 5 mg tablet Condition: Sunday Dose/Route: 6 mg Instruction: 1 x 1 mg tablet, 1 x 5 mg tablet Condition: Sunday Dose/Route: 6 mg Instruction: 1 x 1 mg tablet, 1 x 5 mg tablet Protocol Text: Adjustment Start Date: Sunday02/22/24 INR Value: 2.9 INR Date: 02/22/24 Recheck Date: 03/07/24 Rx Instructions: 5 mg orally daily with a 1 mg tablet to = 6mg: dose changes often; metoprolol tartrate 50 mg tablet 50 mg PO BID Qty: 180 3RF Rx Instructions: TAKE 1 TABLET BY MOUTH TWICE A DAY duloxetine 60 mg capsule,delayed release(DR/EC) 60 mg PO DAILY Qty: 90 0RF Primary Care Provider: Donaldo Larson Referrals: Michael Muhammad MD [Med Staff - Active Staff] - 1 Week Donaldo Larson DO [Primary Care Provider] - Activity Restrictions/Additional Instructions: Your INR 2.7 today. Continue antibiotic ointment to help with moisturization. Follow-up with ENT. If you have rebleed not controlled with pressure, return to the ED for reevaluation. Print Language: Angolan Disposition Disposition: Home, Self Care Discharge Date/Time: 05/09/24 22:33
[2024-05-09 21:02] VITALS: BMI 30.8
[2024-05-09 21:29] LABS: International Normalized Ratio 2.7; Prothrombin Time (Protime)PT. 28.7 SECONDS (11.7-14.9)
== END 2024-05-09 22:33 | disposition home or self-care (01) ==
PROVIDERS: Emergency Provider Emergency Medicine; PCP Family Medicine; Visit Provider Emergency Medicine
DX: R04.0 Epistaxis (principal); I48.0 Paroxysmal atrial fibrillation; Z79.01 Long term (current) use of anticoagulants; Z87.891 Personal history of nicotine dependence; I10 Essential (primary) hypertension; E78.00 Pure hypercholesterolemia, unspecified; F41.9 Anxiety disorder, unspecified; Z79.899 Other long term (current) drug therapy; Z95.2 Presence of prosthetic heart valve
CPT/HCPCS: 85610; 99284

== ENCOUNTER → 2024-07-11 | Outpatient (CLI) | payer MEDICARE, OTHER, SELFPAY ==
--- NOTE | 2024-07-11 12:45 | RAD_ITS ---
EXAM: XR Chest, 2 Views CLINICAL INDICATION: TECHNIQUE: Frontal and lateral views of the chest. COMPARISON: No relevant prior studies available. FINDINGS: LUNGS AND PLEURAL SPACES: Left lower lobe atelectasis or pneumonia. Bilateral pleural effusions. HEART: Cardiomegaly with mild congestion. MEDIASTINUM: Unremarkable. Normal mediastinal contour. BONES/JOINTS: Unremarkable. No acute fracture. RAD/Chest PA and Lateral IMPRESSION: 1. Left lower lobe atelectasis or pneumonia. 2. Cardiomegaly with mild congestion. 3. Bilateral pleural effusions. [facility]
== END | disposition home or self-care (01) ==
PROVIDERS: PCP Family Medicine; Referring Provider Family Medicine; Visit Provider Family Medicine
DX: R05.9 Cough, unspecified (principal)
CPT/HCPCS: 71046; 87070; 87205

== ENCOUNTER 2024-08-23 | Inpatient (IN) | payer MEDICARE, OTHER, SELFPAY ==
[2024-08-23] VITALS (21 sets, daily range): BP systolic 85–123; BP diastolic 45–78; PULSE 82–129; RESP 18–28; TEMP 36.4–38.8; O2SAT 88–97; BMI 30.4
--- NOTE | 2024-08-23 00:20 | EKG12_ITS ---
Test Reason : DYSRHYTHMIA Blood Pressure : */* mmHG Vent. Rate : 131 BPM Atrial Rate : * BPM P-R Int : * ms QRS Dur : 146 ms QT Int : 356 ms P-R-T Axes : * -49 45 degrees QTcB Int : 525 ms Atrial fibrillation with rapid ventricular response Left axis deviation Right bundle branch block Abnormal ECG Confirmed by CONNOR TORRES, LANIE ([id number]), design editor KATELYNN NAGY ([id number]) on 08/25/2024 7:32:19 AM Referred By: TIARA Confirmed By: LANIE RYAN MD
[2024-08-23] MEDS: Ipratropium/Albuterol Sulfate 3 ML AMPUL.NEB 9 ML INHALATION (00:27)
[2024-08-23] MEDS: 0.9% Normal Saline (1000mL) 1,000 ML 1000 ML IV (00:30)
[2024-08-23] MEDS: Acetaminophen 500 MG Tablet 1000 MG PO (00:31)
--- NOTE | 2024-08-23 00:31 | ED.VIS.DYS ---
HPI History of Present Illness Chief Complaint: Shortness of Breath Narrative Narrative: Chief complaint and HPI: Shortness of breath and flulike symptoms. 79-year-old male with paroxysmal atrial fibrillation on warfarin, HTN, HLD, cardiomyopathy, aortic valve replacement presents for evaluation of shortness of breath and flulike symptoms. Onset 2 days ago. Patient states he developed shortness of breath, cough, congestion, rhinorrhea, fever. Shortness of breath increased this evening in which he called EMS. Patient denies any sick contacts that he knows of. Denies any chest pain, nausea, vomiting, diarrhea, dysuria. At baseline patient states he has bilateral peripheral edema that is not any worse. Review of systems: See HPI Medications: As listed on the chart Allergies: As listed on the chart PFSH: Per chart Vital signs: As listed on the chart. Reviewed. Physical exam: Gen: A&O x3, unwell appearing Head: Normocephalic, atraumatic Eyes: No sclera icterus, conjunctiva clear, PERRL, EOMI ENT: Mildly dry mucous membranes Neck: Trachea midline, No JVD CV: Tachycardic, irregularly irregular rhythm, no murmurs, + 2 pitting peripheral edema Resp: Lungs coarse bilaterally diminished in the bases, on 2 L nasal cannula, tachypneic GI: Abd soft, non-distended, non-tender, no r/r/g Musc: Full ROM, no deformity Skin: Warm, dry Neuro: Alert, oriented, grossly intact, sensation intact Psych: Cooperative, appropriate mood and affect 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 Gastrointestinal bleed Post traumatic stress disorder Panic disorder Anxiety Streptococcal endocarditis Colovesical fistula Anxiety disorder History of endocarditis Home Medications ?Medication ?Instructions ?Recorded ?Last Taken ?Type ferrous sulfate 325 mg (65 mg 325 mg PO LUNCH suppliment #30 tabs 12/01/23 Unknown Rx iron) tablet (FeroSul) melatonin 10 mg capsule 10 mg PO QHS SLEEP 30 days #0 caps 05/04/23 04/24/23 Rx lorazepam 0.5 mg tablet 0.5 mg PO BID anxiety 05/21/23 01/21/24 History warfarin 1 mg tablet 1 mg PO .COMPLEX BLOOD THINNER 08/02/23 01/21/24 Rx #180 tabs warfarin 5 mg tablet 5 mg PO .COMPLEX BLOOD THINNER #90 08/02/23 01/21/24 Rx tabs metoprolol tartrate 50 mg tablet 50 mg PO BID BLOOD PRESSURE #180 12/17/23 01/21/24 Rx TABLETS duloxetine 60 mg capsule,delayed 60 mg PO DAILY DEPRESSION #90 caps 12/24/23 01/21/24 Rx release ascorbic acid (vitamin C) 500 mg 500 mg PO DAILY suppliment 01/19/24 Unknown History tablet (C-500) b12 gummy 1 gummy PO DAILY suppliment 01/26/24 Unknown History doxycycline hyclate 100 mg capsule 100 mg PO BID 08/23/24 Unknown History nystatin 100,000 unit/gram topical 1 applic topical BID 08/23/24 Unknown History powder ([facility]) triamcinolone acetonide 0.1 % 1 applic topical TID PRN PRN 08/23/24 Unknown History topical cream affected area Allergy/AdvReac Type Severity Reaction Status Date / Time fentanyl Allergy Severe Other Verified 08/23/24 00:06 levofloxacin AdvReac Severe Passed out Verified 08/23/24 00:06 Family History (Updated 08/23/24 @ 02:[address] Krys Bull MD) Father CAD (coronary artery disease) Heart disease Hypertension Myocardial infarction Mother Rheumatic fever Heart disease Surgical History History of prosthetic heart valve History of colonoscopy (~04/2023) History of mechanical aortic valve replacement History of herniorrhaphy History of colon resection H/O pulmonic valve replacement Social History household members: none Smoking Status: Former smoker how long ago did patient quit smokin years ago alcohol intake: current alcohol intake frequency: holidays/special occasions only Alcohol type: beer details: social caffeine: Yes Type: coffee Number of servings: 1 EXAM Physical Exam Const Vital Signs: 08/23/24 00:01 08/23/24 00:06 08/23/24 00:11 Temperature 101.8 F H 101.9 F H Temperature Source Oral Oral Pulse Rate 122 H 129 H Respiratory Rate 19 H 26 H Respiratory Effort Short of Breath Accessory Muscle Use Respiratory Depth Shallow Respiratory Pattern Tachypnea Blood Pressure 123/78 H 123/78 H Blood Pressure Mean 93 93 Pulse Ox 88 90 Oxygen Delivery Method Room Air Room Air Nasal Cannula Oxygen Flow Rate (L/min) 2 08/23/24 00:22 08/23/24 00:27 08/23/24 01:06 Temperature 100.9 F H Temperature Source Oral Pulse Rate 112 H 99 Respiratory Rate 22 H 26 H Respiratory Effort Respiratory Depth Respiratory Pattern Tachypnea Blood Pressure 105/62 Blood Pressure Mean 76 Pulse Ox 94 93 Oxygen Delivery Method Nasal Cannula Nasal Cannula Oxygen Flow Rate (L/min) 2 2 08/23/24 02:00 08/23/24 02:42 Temperature 99.4 F H 99.4 F H Temperature Source Oral Pulse Rate 110 H 103 H Respiratory Rate 20 H 20 H Respiratory Effort Respiratory Depth Respiratory Pattern Blood Pressure 93/62 103/53 L Blood Pressure Mean 72 69 Pulse Ox 96 96 Oxygen Delivery Method Nasal Cannula Oxygen Flow Rate (L/min) 2 MDM MDM MDM Narrative Medical decision making narrative: 79-year-old male with paroxysmal atrial fibrillation on warfarin, HTN, HLD, cardiomyopathy, aortic valve replacement presents for evaluation of shortness of breath and flulike symptoms. On presentation, patient is mildly hypertensive, tachycardic, tachypneic, febrile. He is hypoxic on 88% room air. Placed on 2 L nasal cannula with improvement in saturations. Differential diagnosis includes but is not limited to pneumonia, COVID-19 infection, influenza, electrolyte abnormality, UTI, bacteremia, ACS, CHF. EKG reviewed. EKG was interpreted by me, ED physician. Patient is in atrial fibrillation with RVR. He is a known right bundle branch block. Heart rate 131. I do suspect that this is responsive to his fever and current illness therefore will not be giving any rate limiting medication at this time. Fever treated with Tylenol. NS bolus. Will be judicial with fluids given patient's respiratory status as well as peripheral edema. Patient made a sepsis alert. Rocephin azithromycin ordered for suspected pneumonia. Sepsis workup ordered. On chart review, patient did have an MARIAA 01/25 that showed an EF of 55%. CBC with mild leukocytosis 11.4. No anemia. INR 2.6. CMP with renal insufficiency with creatinine of 1.27. Previous labs are from February 2024. I do not know if this is new or chronic. Mild AST transaminitis at 60. He has had elevation in the past. Troponin 35. Will get delta/2-hour troponin. BNP elevated at 3418. No lactic acidosis. COVID, flu, RSV negative. UA negative for UTI. 2-hour troponin downtrending to 33. Patient will warrant admission for his acute hypoxia and suspected right pneumonia. Also when CHF exacerbation. Patient was updated of all his results and confirmed understanding of the plan. On reevaluation, patient's heart rate has improved to the 110s. Temperature has improved. Patient was discussed with Dr. Bull. She accepted admission. EKG: Interpreted by me/EM physician: EKG shows atrial fibrillation with RVR. Known right bundle branch block. Heart rate 131 Diagnostic: Interpreted by me/EM physician: Chest x-ray with bilateral effusions as well as right base atelectasis versus pneumonia. Impression: 1. Acute hypoxia requiring nasal cannula 2. Suspected right-sided pneumonia 3. CHF exacerbation 4. A-fib with RVR, improved Lab Data Labs: Laboratory Results - last 24 hr 08/23/24 08/23/24 08/23/24 00:15 01:45 02:15 WBC 11.4 H RBC 4.32 L Hgb 13.8 Hct 40.7 MCV 94.2 H MCH 31.9 MCHC 33.9 RDW Std Deviation 49.5 H RDW Coeff of Rich 14.4 Plt Count 222 MPV 10.1 Immature Gran % (Auto) 0.400 Neut % (Auto) 78.3 H Lymph % (Auto) 5.6 L Jack % (Auto) 14.1 H Eos % (Auto) 0.7 Baso % (Auto) 0.9 Absolute Neuts (auto) 8.9 H Absolute Lymphs (auto) 0.64 L Nucleated RBC % 0 Differential Comment SCANNED Diff Path Review October foll PT 28.4 H INR 2.6 APTT 40.7 H Sodium 133 Potassium 5.1 Chloride 98 Carbon Dioxide 25.2 Anion Gap 10 BUN 19 Creatinine 1.27 H Estim Creat Clear Calc 58.28 Est GFR (MDRD) Non-Af 57 L BUN/Creatinine Ratio 15.3 Glucose 89 Lactic Acid 1.3 Calcium 9.5 Total Bilirubin 1.47 H AST 60 H ALT 32 Alkaline Phosphatase 214 H Troponin T High Sens 35 H Troponin T Hi Sens 2 Hr 33 H NT pro BNP II 3418 H Total Protein 8.5 H Albumin 4.0 Globulin 4.5 H Albumin/Globulin Ratio 0.9 Urine Color Yellow Urine Clarity Clear Urine pH 6.5 Ur Specific [place] 1.015 Urine Protein 30 H Urine Glucose (UA) Normal Urine Ketones Negative Urine Occult Blood 10 H Urine Nitrite Negative Urine Bilirubin Negative Urine Urobilinogen Normal Ur Leukocyte Esterase Negative Urine RBC 0 SEEN Urine WBC 0-5 SEEN Ur Squamous Epith Cells 0 SEEN Urine Bacteria 0 SEEN Urine Mucus 0 SEEN Radiography Diagnostic Testing: Clinical Impression(s) from Imaging Studies Chest X-Ray 08/23/24 00:58 IMPRESSION: Bilateral costophrenic angle blunting which may be related to pleural thickening or small effusions again noted with associated pleural-parenchymal changes of the bases. Persistent area of medial right lower lobe retrocardiac collapse is seen which may be residual ongoing process at the right base with an infectious pneumonia not excluded. Overall the remainder of the right mid to lower lung is improved from the prior with improved aeration and smaller mostly resolved appearing pleural effusion suggested. Status post median sternotomy and aortic valve replacement again noted. Cardiac silhouette again appears enlarged for technique. Reading Location: [facility] Discharge Plan Triage Chief Complaint: Shortness of Breath ED Provider: Alon Banks Dx/Rx/DC Orders Prescriptions: No Action lorazepam 0.5 mg tablet 0.5 mg PO BID ferrous sulfate [FeroSul] 325 mg (65 mg iron) Tablet 325 mg PO LUNCH Qty: 30 0RF melatonin 10 mg capsule 10 mg PO QHS 30 Days Qty: 0 0RF ascorbic acid (vitamin C) [C-500] 500 mg tablet 500 mg PO DAILY b12 gummy 1 gummy PO DAILY doxycycline hyclate 100 mg capsule 100 mg PO BID triamcinolone acetonide 0.1 % cream 1 applic topical TID PRN PRN (Reason: affected area) nystatin [Nyamyc] 100,000 unit/gram powder 1 applic topical BID warfarin 1 mg tablet 1 mg PO .COMPLEX Qty: 180 3RF Protocol: Dose Management Condition: Sunday Dose/Route: 6 mg Instruction: 1 x 1 mg tablet, 1 x 5 mg tablet Condition: Sunday Dose/Route: 6 mg Instruction: 1 x 1 mg tablet, 1 x 5 mg tablet Condition: Sunday Dose/Route: 6 mg Instruction: 1 x 1 mg tablet, 1 x 5 mg tablet Condition: Sunday Dose/Route: 6 mg Instruction: 1 x 1 mg tablet, 1 x 5 mg tablet Condition: Dose/Route: 6 mg Instruction: 1 x 1 mg tablet, 1 x 5 mg tablet Condition: Sunday Dose/Route: 6 mg Instruction: 1 x 1 mg tablet, 1 x 5 mg tablet Condition: Sunday Dose/Route: 6 mg Instruction: 1 x 1 mg tablet, 1 x 5 mg tablet Protocol Text: Adjustment Start Date: Sunday02/22/24 INR Value: 2.9 INR Date: 02/22/24 Recheck Date: 03/07/24 Rx Instructions: daily with a 5mg tablet to = 6 mg: dose changes often warfarin 5 mg tablet 5 mg PO .COMPLEX Qty: 90 3RF Protocol: Dose Management Condition: Sunday Dose/Route: 6 mg Instruction: 1 x 1 mg tablet, 1 x 5 mg tablet Condition: Sunday Dose/Route: 6 mg Instruction: 1 x 1 mg tablet, 1 x 5 mg tablet Condition: Sunday Dose/Route: 6 mg Instruction: 1 x 1 mg tablet, 1 x 5 mg tablet Condition: Sunday Dose/Route: 6 mg Instruction: 1 x 1 mg tablet, 1 x 5 mg tablet Condition: Dose/Route: 6 mg Instruction: 1 x 1 mg tablet, 1 x 5 mg tablet Condition: Sunday Dose/Route: 6 mg Instruction: 1 x 1 mg tablet, 1 x 5 mg tablet Condition: Sunday Dose/Route: 6 mg Instruction: 1 x 1 mg tablet, 1 x 5 mg tablet Protocol Text: Adjustment Start Date: Sunday02/22/24 INR Value: 2.9 INR Date: 02/22/24 Recheck Date: 03/07/24 Rx Instructions: 5 mg orally daily with a 1 mg tablet to = 6mg: dose changes often; metoprolol tartrate 50 mg tablet 50 mg PO BID Qty: 180 3RF Rx Instructions: TAKE 1 TABLET BY MOUTH TWICE A DAY duloxetine 60 mg capsule,delayed release(DR/EC) 60 mg PO DAILY Qty: 90 0RF Primary Care Provider: Donaldo Larson Referrals: Donaldo Larson, [Primary Care Provider] - Print Language: B[place]udian
[2024-08-23 00:36] LABS: Absolute Lymphocyte Count 0.64 X10^3/uL (0.83-4.51); Absolute Neutrophil Count 8.9 X10^3/uL (2.0-7.7); Basophil% 0.9 % (0-1); Eosinophil# 0.08 X10^3/uL; Eosinophils% 0.7 % (0-5); Hematocrit 40.7 % (40-54); Hemoglobin 13.8 g/dL (13.0-16.5); Lymphocyte # 0.64 X10^3/ul (0.83-4.51); Lymphocyte % 5.6 % (19-41); Mean Corp Hgb Conc 33.9 g/dL (32-36); Mean Corpuscular Hgb 31.9 pg (27.0-32.0); Mean Corpuscular Volume 94.2 fL (80-94); Mean Platelet Vol. 10.1 fl (6.2-12.0); Monocyte# 1.61 X10^3/uL; Monocyte% 14.1 % (0-10); NRBC Flagged by Analyzer 0 % (0-5); Neutrophil # 8.94 X10^3/uL (2.7-7.7); Neutrophil % 78.3 % (47-70); POSITIVE DIFFERENTIAL YES; Platelet Count 222 K/mm3 (150-450); RBC Distribution Width CV 14.4 % (11.6-14.6); RBC Distribution Width SD 49.5 fl (35.1-43.9); Red Blood Count 4.32 M/mm3 (4.6-6.2); White Blood Count 11.4 K/mm3 (4.4-11.0)
[2024-08-23 00:38] LABS: Differential Indicated SCAN CRITERIA MET
[2024-08-23] MEDS: Ceftriaxone 1 GM/50 ML BAG IV ×2 (00:45→22:03)
[2024-08-23 00:50] LABS: International Normalized Ratio 2.6; Prothrombin Time (Protime)PT. 28.4 SECONDS (11.7-14.9)
[2024-08-23 00:51] LABS: Partial Thromboplast Time 40.7 Seconds (24.1-36.2)
--- NOTE | 2024-08-23 00:53 | CPS ---
[0027] 9mL Duoneb given to pt. in ER
--- NOTE | 2024-08-23 00:58 | RAD_ITS ---
PROCEDURE: CHEST 1 VIEW (PORTABLE) 08/23/2024 REASON FOR EXAM: SHORTNESS OF BREATH TECHNIQUE: Frontal view of the chest. COMPARISON: 07/11/2024 FINDINGS: Bilateral costophrenic angle blunting which may be related to pleural thickening or small effusions again noted with associated pleural-parenchymal changes of the bases. Persistent area of medial right lower lobe retrocardiac collapse is seen which may be residual ongoing process at the right base with an infectious pneumonia not excluded. Overall the remainder of the right mid to lower lung is improved from the prior with improved aeration and smaller mostly resolved appearing pleural effusion suggested. Status post median sternotomy and aortic valve replacement again noted. Cardiac silhouette again appears enlarged for technique. RAD/Chest 1 View (Portable) IMPRESSION: Bilateral costophrenic angle blunting which may be related to pleural thickenin g or small effusions again noted with associated pleural-parenchymal changes of the bases. Persistent area of medial right lower lobe retrocardiac collapse is seen which may be residual ongoing process at the right base with an infectious pneumonia not excluded. Overall the remainder of the right mid to lower lung is improved from the prior with improved aeration and smaller mostly resolved appearing pleural effusion suggested. Status post median sternotomy and aortic valve replacement again noted. Cardia c silhouette again appears enlarged for technique. Reading Location: [id number]
[2024-08-23 01:00] LABS: ALB/GLOB Ratio 0.9 RATIO (0.9-2.4); AST(SGOT) 60 U/L (<=37); Alanine Aminotransfer ALT/SGPT 32 U/L (<=46); Alkaline Phosphatase 214 U/L (40-129); Anion Gap 10 (5-15); BUN 19 mg/dL (4-19); BUN/Creat Ratio 15.3 RATIO (10-20); Calcium,Total 9.5 mg/dL (7.6-11.0); Carbon Dioxide 25.2 mmol/L (21.0-32.0); Chloride 98 mmol/L (98-108); Creatinine, Serum 1.27 mg/dL (0.70-1.20); EST Glomerular Filtration Rate 57 (>60); Estimated Creatinine Clearance 58.28 ml/min (50-250); Globulin 4.5 g/dL (2.2-4.2); Glucose 89 mg/dL (70-99); Lactic Acid 1.3 mmol/L (0.0-2.0); Potassium 5.1 mmol/L (3.3-5.1); Protein, Total 8.5 g/dL (5.9-8.4); Sodium Level 133 mmol/L (133-145); Total Bilirubin 1.47 mg/dL (0.00-1.30)
[2024-08-23 01:05] LABS: Differential Comment SCANNED; Pathologist Review May foll
[2024-08-23 01:20] LABS: Troponin T High Sensitivity 35 ng/L (<=22)
[2024-08-23 01:40] LABS: Pro- Brain NATRIURETIC PEPTIDE 3418 pg/mL (<=1800)
[2024-08-23] MEDS: Azithromycin 500 MG in 0.9% Normal Saline (250mL Bag) 250 ML 255 MG IV ×2 (01:44→22:03)
[2024-08-23 01:57] LABS: Bacteria 0 SEEN /hpf (None Seen); Color, Urine Yellow (Yellow); Glucose, Dipstick Normal (Normal); Ketone-Dipstick Negative (Negative); Leukocyte Esterase-Dipstick Negative /ul (Negative); Mucous, Urine 0 SEEN /hpf (<or=2+); Nitrite-Dipstick Negative (Negative); Occult Blood-Urine 10 /ul (Negative); Protein-Dipstick 30 mg/dl (Negative); Specific Gravity, Urine 1.015 (1.002-1.030); Squamous Epithelial Cells - UA 0 SEEN /hpf (0-5); Urine Bilirubin Dipstick Negative (Negative); Urine Clarity Clear (Clear); Urine Urobilinogen Normal (Normal); Urine pH 6.5 (5.0 - 8.0)
[2024-08-23 02:22] LABS: Red Blood Cells-Urine 0 SEEN /hpf (0-5); White Blood Cells 0-5 SEEN /hpf (0-5)
--- NOTE | 2024-08-23 02:29 | HP.PCM.HOS_ITS ---
HPI - General General Date of Admission: 08/23/24 Date of Service: 08/23/24 Chief Complaint: Dyspnea, cough, congestion, rhinorrhea, fever. HPI Narrative The patient is a 79 y/o M w/ PMHx: CKD stage II per GFR trending, Crohn's disease, Hx C-difficile colitis, Chronic anemia, PAF, Anxiety and Depression/Panic diosrder/PTSD, Hx Endocarditis, Valvular Heart Disease s/p mechanical AVR, Pulmonic valve replacement, Former tobacco use who presents to the [facility] ED on 08/23/24 with history of progressively worsening dyspnea, fatigue, malaise, cough as well as congestion and rhinorrhea not improving prompting eventual ED evaluation to be cautious. Workup in the ED included T11.8, heart rate 122, BP 123/78, respiratory rate 19, 88% on room air with most recent repeat vitals T101.9, heart rate 129, BP 123/78, respiratory rate 26, 94% on 2 L nasal cannula, CBC with WBC 11.4, hemoglobin 13.8, MCV 94.2, platelet 222 with left shift and lymphopenia, coags with INR 2.6, PT 28.4, PTT 40.7, CMP with BUN/creat 19/1.27, GFR 57, lactic acid 1.3, T. bili 1.47, AST/LT 60/32, alk phos 214, troponin 35, BNP 3418, chest x-ray with bilateral costophrenic angle blunting possibly related to pleural thickening or small effusions with pleural parenchymal changes at the base, persistent area medial right lower lobe retrocardiac collapse possibly residual ongoing process at the right base possibly infectious pneumonia, overall remained the right mid to lower lung improved from previous, status post median sternotomy and aortic valve replacement noted EKG with atrial fibrillation with RVR with known right bundle branch block with rate 131, blood culture x 2 pending per ED, urine culture and urinalysis pending per ED. In the ED patient ministered 1 L normal saline, DuoNeb therapy, Tylenol 1000 mg p.o. x 1, azithromycin 500 mg IV x 1, Rocephin 1 g IV x 1. [facility] Medical History Bacteremia Pleural effusion, right History of Clostridioides difficile colitis Crohn's disease History of atrial fibrillation History of endocarditis Hiatal hernia Incisional hernia Diverticulitis Scarlet fever Kidney stones Anemia Pseudomembranous colitis retirement current use of anticoagulant Pure hypercholesterolemia Essential hypertension Other alf (current) drug therapy Nonrheumatic aortic (valve) insufficiency Nonrheumatic pulmonary valve insufficiency retirement (current) use of anticoagulants Gastrointestinal bleed Post traumatic stress disorder Panic disorder Anxiety Streptococcal endocarditis Colovesical fistula Anxiety disorder History of endocarditis Home Medications ?Medication ?Instructions ?Recorded ?Last Taken ?Type ferrous sulfate 325 mg (65 mg 325 mg PO LUNCH supplime nt #30 tabs 05/04/23 Unknown Rx iron) tablet (FeroSul) melatonin 10 mg capsule 10 mg PO QHS SLEEP 30 days # 0 caps 05/04/23 04/24/23 Rx lorazepam 0.5 mg tablet 0.5 mg PO BID anxiety 01/21/24 History warfarin 1 mg tablet 1 mg PO .COMPLEX BLOOD THINN ER 08/02/23 01/21/24 Rx #180 tabs warfarin 5 mg tablet 5 mg PO .COMPLEX BLOOD THINN ER #90 08/02/23 01/21/24 Rx tabs metoprolol tartrate 50 mg tablet 50 mg PO BID BLOOD PA ESSURE #180 12/17/23 01/21/24 Rx TABLETS duloxetine 60 mg capsule,delayed 60 mg PO DAILY DEPRES EARNEST #90 caps 12/24/23 01/21/24 Rx release ascorbic acid (vitamin C) 500 mg 500 mg PO DAILY suppl iment 01/19/24 Unknown History tablet (C-500) b12 gummy 1 gummy PO DAILY suppliment 01/26/24 Unknown History doxycycline hyclate 100 mg capsule 100 mg PO BID 08/23 Unknown History nystatin 100,000 unit/gram topical 1 applic topical BI D 08/23/24 Unknown History powder (Nyamyc) triamcinolone acetonide 0.1 % 1 applic topical TID PRN PRN 08/23/24 Unknown History topical cream affected area Allergy/AdvReac Type Severity Reaction Status Date / Time fentanyl Allergy Severe Other Verified 08/23/24 00:06 levofloxacin AdvReac Severe Passed out Verified 08/23/24 00:06 Family History (Updated 08/23/24 @ 02:[address] Krys Bull MD) Father CAD (coronary artery disease) Heart disease Hypertension Myocardial infarction Mother Rheumatic fever Heart disease Surgical History History of prosthetic heart valve History of colonoscopy (~04/2023) History of mechanical aortic valve replacement History of herniorrhaphy History of colon resection H/O pulmonic valve replacement Social History household members: none Smoking Status: Former smoker how long ago did patient quit smokin years ago alcohol intake: current alcohol intake frequency: holidays/special occasions only Alcohol type: beer details: social caffeine: Yes Type: coffee Number of servings: 1 ROS ROS Narrative Admission Review of Systems: CONSTITUTIONAL: No weight loss, + fever, chills, weakness or fatigue. HEENT: + Congestion/rhinorrhea. Eyes: No visual loss, blurred vision, double vision or yellow sclerae. Ears, Nose, Throat: No hearing loss, sneezing. SKIN: No rash or itching, lesions, wounds. CARDIOVASCULAR: + Chronic distal edema. No chest pain, chest pressure or chest discomfort, palpitations, orthopnea, syncopal events. RESPIRATORY: + Dyspnea, cough. No wheezing, hemoptysis. GASTROINTESTINAL: No anorexia, nausea, vomiting or diarrhea, abdominal pain, melena, BRBPR. GENITOURINARY: No dysuria, frequency, urgency or retention. NEUROLOGICAL: No headache, dizziness, syncope, paralysis, ataxia, numbness or tingling in the extremities, focal weakness, change in bowel or bladder control, seizure. MUSCULOSKELETAL: + muscle, back pain, joint pain or stiffness. HEMATOLOGIC: + Chronic anemia, easy bleeding/bruising. LYMPHATICS: No enlarged nodes. No history of splenectomy. PSYCHIATRIC: + History of anxiety and depression/panic disorder/PTSD. ENDOCRINOLOGIC: No reports of sweating, cold or heat intolerance. No polyuria or polydipsia. ALLERGIES: No history of asthma, hives, eczema or rhinitis. Vital Signs Vital Signs Vital Signs: 08/23/24 00:01 08/23/24 00:06 08/23/24 00:11 Temperature 101.8 F H 101.9 F H Temperature Source Oral Oral Pulse Rate 122 H 129 H Respiratory Rate 19 H 26 H Respiratory Effort Short of Breath Accessory Muscle Use Respiratory Depth Shallow Respiratory Pattern Tachypnea Blood Pressure 123/78 H 123/78 H Blood Pressure Mean 93 93 Pulse Ox 88 90 Oxygen Delivery Method Room Air Room Air Nasal Cannula Oxygen Flow Rate (L/min) 2 08/23/24 00:22 08/23/24 00:27 08/23/24 01:06 Temperature 100.9 F H Temperature Source Oral Pulse Rate 112 H 99 Respiratory Rate 22 H 26 H Respiratory Effort Respiratory Depth Respiratory Pattern Tachypnea Blood Pressure 105/62 Blood Pressure Mean 76 Pulse Ox 94 93 Oxygen Delivery Method Nasal Cannula Nasal Cannula Oxygen Flow Rate (L/min) 2 2 08/23/24 02:00 Temperature 99.4 F H Temperature Source Oral Pulse Rate 110 H Respiratory Rate 20 H Respiratory Effort Respiratory Depth Respiratory Pattern Blood Pressure 93/62 Blood Pressure Mean 72 Pulse Ox 96 Oxygen Delivery Method Nasal Cannula Oxygen Flow Rate (L/min) 2 Weight Weight: 224 lb 13.944 oz Body Mass Index (BMI) 30.4 Physical Exam Narrative Physical Examination: General: Awake, alert, oriented x 3 and cooperative, seated upright in the ED bed, fatigued but remains very talkative. Skin: Normal color, normal turgor, no icterus, no cyanosis except occasional stage ecchymoses, abrasion. HEENT: AT/NC, EOMI, PERRLA, MMM, no carotid bruits or JVD noted. Lungs: Diminished, greater bilateral bases, mildly coarse, mildly increased respiratory rate but no distress, on supplemental oxygen. Heart: Irregular irregular; no gallop, rub audible. Abdomen: Soft, NTTP, ND, distant normal BS, no appreciated HSM. Extremities: No cyanosis, no clubbing, 1-2+ distal pedal to nicole pitting edema noted to be chronic per patient. Neurological: Patient awake, alert, oriented as noted, cognitive function appears baseline intact; pupils equally reactive to light and accommodation, cranial nerves gross normal, moving all 4 extremities, no focal deficits, strength severely globally decreased secondary to acute presentation. Psychiatric: Affect appears fatigued, no acute evidence of depressive or anxiety feelings but does have underlying history. Results Lab / Micro Data 08/23/24 00:15 08/23/24 00:15 Labs: Laboratory Results - last 24 hr 08/23/24 00:15: WBC 11.4 H, RBC 4.32 L, Hgb 13.8, Hct 40.7, MCV 94.2 H, MCH 31.9, MCHC 33.9, RDW Std Deviation 49.5 H, RDW Coeff of Rich 14.4, Plt Count 222, MPV 10.1, Immature Gran % (Auto) 0.400, Neut % (Auto) 78.3 H, Lymph % (Auto) 5.6 L, Mobile % (Auto) 14.1 H, Eos % (Auto) 0.7, Baso % (Auto) 0.9, Absolute Neuts (auto) 8.9 H, Absolute Lymphs (auto) 0.64 L, Nucleated RBC % 0, Differential Comment SCANNED, Diff Path Review October foll, PT 28.4 H, INR 2.6, APTT 40.7 H, Sodium 133, Potassium 5.1, Chloride 98, Carbon Dioxide 25.2, Anion Gap 10, BUN 19, Creatinine 1.27 H, Estim Creat Clear Calc 58.28, Est GFR (MDRD) Non-Af 57 L, BUN/Creatinine Ratio 15.3, Glucose 89, Lactic Acid 1.3, Calcium 9.5, Total Bilirubin 1.47 H, AST 60 H, ALT 32, Alkaline Phosphatase 214 H, Troponin T High Sens 35 H, NT pro BNP II 3418 H, Total Protein 8.5 H, Albumin 4.0, Globulin 4.5 H, Albumin/Globulin Ratio 0.9 08/23/24 01:45: Urine Color Yellow, Urine Clarity Clear, Urine pH 6.5, Ur Specific Parshall 1.015, Urine Protein 30 H, Urine Glucose (UA) Normal, Urine Ketones Negative, Urine Occult Blood 10 H, Urine Nitrite Negative, Urine Bilirubin Negative, Urine Urobilinogen Normal, Ur Leukocyte Esterase Negative, Urine RBC 0 SEEN, Urine WBC 0-5 SEEN, Ur Squamous Epith Cells 0 SEEN, Urine Bacteria 0 SEEN, Urine Mucus 0 SEEN Micro: Microbiology 08/23/24 00:25 Mucosa - Nose SARS-CoV-2, Influenza & RSV (PCR) - Final Imaging Radiology Impression Chest X-Ray 08/23/24 00:58 IMPRESSION: Bilateral costophrenic angle blunting which may be related to pleural thickening or small effusions again noted with associated pleural-parenchymal changes of the bases. Persistent area of medial right lower lobe retrocardiac collapse is seen which may be residual ongoing process at the right base with an infectious pneumonia not excluded. Overall the remainder of the right mid to lower lung is improved from the prior with improved aeration and smaller mostly resolved appearing pleural effusion suggested. Status post median sternotomy and aortic valve replacement again noted. Cardiac silhouette again appears enlarged for technique. Reading Location: [facility] Assessment & Plan Assessment/Plan (1) Pneumonia: (2) Hypoxia: PLAN: Plan The patient is a 79 y/o M w/ PMHx: CKD stage II per GFR trending, Crohn's disease, Hx C-difficile colitis, Chronic anemia, PAF, Anxiety and Depression/Panic diosrder/PTSD, Hx Endocarditis, Valvular Heart Disease s/p mechanical AVR, Pulmonic valve replacement, Former tobacco use who presents to the [facility] ED on 08/23/24 with history of progressively worsening dyspnea, fatigue, malaise, cough as well as congestion and rhinorrhea not improving prompting eventual ED evaluation to be cautious. #1. Acute Hypoxia secondary to possible right lower lobe Community Acquired Pneumonia complicated by bilateral small effusions versus pleural thickening (hypoxia, tachycardia, tachypnea with source but no obvious evidence of endorgan damage of note): Will admit to PCU given #2, maintain on oxygen with wean as tolerated to room air, maintain on ATC budesonide therapy, PRN albuterol, maintained on IV Rocephin and Azithromycin, HOB, IS parameters w/ pending sputum cultures, full respiratory viral panel and urine antigens. Bld cx x 2 obtained in the ED. #2. PAF with RVR, likely secondary to acute presentation #1 with indeterminate cardiac enzyme with elevated BNP of unclear significance: Will maintain on cardiac telemetry, will continue to cycle cardiac enzymes, magnesium level requested, will continue to just hydration, will dose metoprolol x 1 now as BP allows, continue Coumadin with INR trending with admission INR 2.6. #7. Anxiety and depression/panic disorder/PTSD/Possible underlying additional psychiatric illness with reported occasional hallucinations: We will continue patient home duloxetine, melatonin and low-dose lorazepam regimen with hold for sedation. Patient is interested in increased psychiatric therapy in large part for severe anxiety but cannot afford the cost. Also, discussion that he has intermittent visual hallucinations for years. Will request case management consultation to assist with discharge planning. #4. Chronic Kidney Disease Stage II per GFR trending however this is remote from 2023: Admission BUN/Cr 19/1.27, GFR 57 however previously was primary consistent with stage II, baseline renal function primarily 0.8-0.9, repeat BMP in AM. #5. Hypertension: Continue home regimen including metoprolol with hold parameters as needed, PRN hydralazine. #6. Crohn's disease: Noted in chart history, per current medication list does not appear to be on any chronic regimen, encourage continued outpatient follow- up with GI as previously arranged. #7. Valvular heart disease: Patient status post mechanical AVR and reg valve replacement, 01/24/24 transesophageal echocardiogram with EF 55%, moderate biatrial dilatation, no evidence of infective endocarditis, stable appearing mechanical aortic valve apparatus, pulmonic valve was not well-visualized on this echocardiogram. Continued on Coumadin with INR trending. #8. Chronic anemia, currently macrocytic with MCV level/iron deficiency anemia: Admission hemoglobin 13.8, MCV 94.2, baseline hemoglobin previously primarily 12 range however this is remote from 2023, continue to trend CBC, continue iron supplementation. #9. Former tobacco use: Encourage continued tobacco cessation. #10. DVT Prophylaxis: Continue coumadin with INR trending. Admission INR 2.6. #11. CODE status: Patient GAYE is his daughter and living will is living will is currently in place. Discussed CODE status at length including difference between FULL code, DNR-CCA and DNR-CC status. Following discussions about the differences in these status, requested Full Code status. Advanced Care Planning Face to Face Time: 16 minutes. Charges/Coding Visit Charges Inpatient E&M: 03450 Init Hosp L3 Procedures Hospitalists Procedures: 55464 Advncd Care Plan 30 Min
[2024-08-23 02:36] LABS: Troponin T High Sens 2 HR 33 ng/L (<=22)
[2024-08-23] MEDS: 0.9% Normal Saline (500mL Bag) 500 ML 999 ML IV (04:05)
[2024-08-23 04:16] LABS: Magnesium 1.7 mg/dL (1.5-2.2)
[2024-08-23] MEDS: 0.9% Normal Saline (1000mL) 1,000 ML 100 ML IV (04:51)
[2024-08-23 05:29] LABS: Troponin T High Sens 4 HR 40 ng/L (<=22)
[2024-08-23] MEDS: Budesonide Respules 0.5 MG/2 ML AMPUL.NEB. INHALATION ×2 (06:05→19:11)
[2024-08-23] MEDS: Albuterol 2.5 MG/3 ML VIAL.NEB. INHALATION (06:05)
[2024-08-23 06:44] LABS: Absolute Lymphocyte Count 0.79 X10^3/uL (0.83-4.51); Absolute Neutrophil Count 7.8 X10^3/uL (2.0-7.7); Basophil# 0.05 X10^3/uL; Basophil% 0.5 % (0-1); Eosinophil# 0.04 X10^3/uL; Eosinophils% 0.4 % (0-5); Hematocrit 36.6 % (40-54); Hemoglobin 12.3 g/dL (13.0-16.5); Lymphocyte # 0.79 X10^3/ul (0.83-4.51); Mean Corp Hgb Conc 33.6 g/dL (32-36); Mean Corpuscular Hgb 31.7 pg (27.0-32.0); Mean Corpuscular Volume 94.3 fL (80-94); Mean Platelet Vol. 10.1 fl (6.2-12.0); Monocyte# 1.24 X10^3/uL; Monocyte% 12.5 % (0-10); NRBC Flagged by Analyzer 0 % (0-5); Neutrophil # 7.78 X10^3/uL (2.7-7.7); Neutrophil % 78.3 % (47-70); Platelet Count 178 K/mm3 (150-450); RBC Distribution Width CV 14.5 % (11.6-14.6); RBC Distribution Width SD 50.4 fl (35.1-43.9); Red Blood Count 3.88 M/mm3 (4.6-6.2); White Blood Count 9.9 K/mm3 (4.4-11.0)
[2024-08-23 07:14] LABS: International Normalized Ratio 2.5; Prothrombin Time (Protime)PT. 27.9 SECONDS (11.7-14.9)
[2024-08-23 07:36] LABS: ALB/GLOB Ratio 0.9 RATIO (0.9-2.4); AST(SGOT) 53 U/L (<=37); Alanine Aminotransfer ALT/SGPT 25 U/L (<=46); Albumin, Serum 3.3 g/dL (3.4-4.8); Alkaline Phosphatase 168 U/L (40-129); Anion Gap 12 (5-15); BUN 19 mg/dL (4-19); BUN/Creat Ratio 15.2 RATIO (10-20); Calcium,Total 8.5 mg/dL (7.6-11.0); Carbon Dioxide 20.3 mmol/L (21.0-32.0); Chloride 103 mmol/L (98-108); Creatinine, Serum 1.28 mg/dL (0.70-1.20); EST Glomerular Filtration Rate 57 (>60); Estimated Creatinine Clearance 57.43 ml/min (50-250); Globulin 3.7 g/dL (2.2-4.2); Glucose 134 mg/dL (70-99); Potassium 4.4 mmol/L (3.3-5.1); Sodium Level 135 mmol/L (133-145); Total Bilirubin 1.18 mg/dL (0.00-1.30)
[2024-08-23] MEDS: Lactobacillis Acidophilus 1 CAP PO ×2 (09:33→22:02)
[2024-08-23] MEDS: DULoxetine Hcl 60 MG Capsule PO (09:33)
[2024-08-23] MEDS: Nystatin Powder 15gm Bottle 1 APPLIC TOPICAL ×2 (09:34→22:03)
[2024-08-23] MEDS: LORazepam 0.5 MG Tablet PO ×2 (09:40→22:02)
--- NOTE | 2024-08-23 10:00 | NURSING ---
Report given to IVY Hernandez
--- NOTE | 2024-08-23 10:20 | CASEMGMT ---
IVY FERRERA Assessment: Face to Face with pt for initial transition planning/care coordination assessment. IVY FERRERA introduced self and role at [facility], pt voices understanding and consents to assessment. Pt is A&O x4 and answers all questions appropriately at this time. Pt sitting up in chair with oxygen on and ST in room at end of assessment to eval. Care providers, pharmacy, and demographics verified/updated. Admitting Dx: hypoxia, suspected lópez, paf rvr PCP:Marsha Specialists:WILBERT, cardio Preferred Pharmacy: [facility] Insurance: [facility], [employer] Prescription Benefit: yes LNOK: Dominique Landon, dtr; Savanah Lin, chelsea other Living Arrangements: Pt lives alone in a two story home with 5 steps to enter with a rail. Pt reports he is I in ADL/IADLs and denies concerns at home. Transportation: Pt drives self and denies concerns with transportation. DME:fishing stick he uses as a walking stick HHC/SNF: Pt reports he has had HHC in the past but cannot recall name, denies hx of SNF. Pt states no concerns with going home at time of dc. Pt denies need for any further DME at home, follow therapy and for home oxygen. Pt does not have preference after given local verbal in network list of DME providers should he need oxygen. Pt states no further concerns/needs. CM to follow. Advised pt to ask CM if any further questions/concerns/needs arise, voices understanding. Pt Goal: Home Plan: Home, follow for therapy and oxygen Robbin HAYNES CM
--- NOTE | 2024-08-23 13:11 | PCM.PN.HOSP ---
Reason for Visit Reason for Visit: Diagnoses Pneumonia, unspecified organism (08/23/24) Hypoxemia (08/23/24) Objective Data Objective Data Vital Signs: Vital Signs Temp Pulse Resp BP Pulse Ox O2 Del Method O2 Flow Rate 98.3 F 82 20 H 103/65 94 Nasal Cannula 4 08/23/24 09:30 08/23/24 09:30 08/23/24 09:30 08/23/24 09:30 08/23/24 09:30 08/23/24 09:30 08/23/24 09:30 Oxygen Flow Rate (L/min) 4 Oxygen Delivery Method Nasal Cannula Weight: 221 lb 9.033 oz Body Mass Index (BMI) 30.0 Intake & Output: Intake and Output for Last 24 Hours 08/21/24 08/22/24 08/23/24 23:59 23:59 23:59 Intake Total 2104 Balance 2104 Lab / Micro Data 08/23/24 06:27 08/23/24 06:27 Labs: Laboratory Results - last 24 hr 08/23/24 00:15: WBC 11.4 H, RBC 4.32 L, Hgb 13.8, Hct 40.7, MCV 94.2 H, MCH 31.9, MCHC 33.9, RDW Std Deviation 49.5 H, RDW Coeff of Rich 14.4, Plt Count 222, MPV 10.1, Immature Gran % (Auto) 0.400, Neut % (Auto) 78.3 H, Lymph % (Auto) 5.6 L, Anderson % (Auto) 14.1 H, Eos % (Auto) 0.7, Baso % (Auto) 0.9, Absolute Neuts (auto) 8.9 H, Absolute Lymphs (auto) 0.64 L, Nucleated RBC % 0, Differential Comment SCANNED, Diff Path Review October, PT 28.4 H, INR 2.6, APTT 40.7 H, Sodium 133, Potassium 5.1, Chloride 98, Carbon Dioxide 25.2, Anion Gap 10, BUN 19, Creatinine 1.27 H, Estim Creat Clear Calc 58.28, Est GFR (MDRD) Non-Af 57 L, BUN/Creatinine Ratio 15.3, Glucose 89, Lactic Acid 1.3, Calcium 9.5, Total Bilirubin 1.47 H, AST 60 H, ALT 32, Alkaline Phosphatase 214 H, Troponin T High Sens 35 H, NT pro BNP II 3418 H, Total Protein 8.5 H, Albumin 4.0, Globulin 4.5 H, Albumin/Globulin Ratio 0.9 08/23/24 01:45: Urine Color Yellow, Urine Clarity Clear, Urine pH 6.5, Ur Specific Bernie 1.015, Urine Protein 30 H, Urine Glucose (UA) Normal, Urine Ketones Negative, Urine Occult Blood 10 H, Urine Nitrite Negative, Urine Bilirubin Negative, Urine Urobilinogen Normal, Ur Leukocyte Esterase Negative, Urine RBC 0 SEEN, Urine WBC 0-5 SEEN, Ur Squamous Epith Cells 0 SEEN, Urine Bacteria 0 SEEN, Urine Mucus 0 SEEN 08/23/24 02:15: Magnesium 1.7, Troponin T Hi Sens 2 Hr 33 H 08/23/24 04:20: Troponin T Hi Sens 4Hr 40 H 08/23/24 06:27: WBC 9.9, RBC 3.88 L, Hgb 12.3 L, Hct 36.6 L, MCV 94.3 H, MCH 31.7, MCHC 33.6, RDW Std Deviation 50.4 H, RDW Coeff of Rich 14.5, Plt Count 178, MPV 10.1, Immature Gran % (Auto) 0.300, Neut % (Auto) 78.3 H, Lymph % (Auto) 8.0 L, Anderson % (Auto) 12.5 H, Eos % (Auto) 0.4, Baso % (Auto) 0.5, Absolute Neuts (auto) 7.8 H, Absolute Lymphs (auto) 0.79 L, Nucleated RBC % 0, PT 27.9 H, INR 2.5, Sodium 135, Potassium 4.4, Chloride 103, Carbon Dioxide 20.3 L, Anion Gap 12, BUN 19, Creatinine 1.28 H, Estim Creat Clear Calc 57.43, Est GFR (MDRD) Non-Af 57 L, BUN/Creatinine Ratio 15.2, Glucose 134 H, Calcium 8.5, Total Bilirubin 1.18, AST 53 H, ALT 25, Alkaline Phosphatase 168 H, Total Protein 7.0, Albumin 3.3 L, Globulin 3.7, Albumin/Globulin Ratio 0.9 Micro: Microbiology 08/23/24 03:38 Mucosa - Nasopharyngeal Respiratory Panel (PCR) - Final 08/23/24 00:25 Mucosa - Nose SARS-CoV-2, Influenza & RSV (PCR) - Final Radiography Diagnostic Testing: Radiology Impression Chest X-Ray 08/23/24 00:58 IMPRESSION: Bilateral costophrenic angle blunting which may be related to pleural thickening or small effusions again noted with associated pleural-parenchymal changes of the bases. Persistent area of medial right lower lobe retrocardiac collapse is seen which may be residual ongoing process at the right base with an infectious pneumonia not excluded. Overall the remainder of the right mid to lower lung is improved from the prior with improved aeration and smaller mostly resolved appearing pleural effusion suggested. Status post median sternotomy and aortic valve replacement again noted. Cardiac silhouette again appears enlarged for technique. Reading Location: [id number] Physical Exam Narrative Seen and examined Patient states she is not on home oxygen. He has chronic leg pain and neuropathy and leg swelling. He has gait instability and follows in the outpatient PT. Patient admitted with worsening 5 to 6 days of cough runny nose and worsening shortness of breath for 2 days. History of mechanical aortic valve replacement, A-fib Physical exam General: Alert, Oriented x3, Cooperative. BMI 30.0 kg/m? HEENT: Atraumatic, PERRLA, EOMI, Normocephalic Oral: No Gingival or Mucosal Lesions/ Ulcerations Neck: Supple, No JVD, Negative Carotid Bruits Chest wall/Lungs: Air entry diminished in right lung base. Bilateral lung bases coarse crepitations Cardiovascular: Sinus rhythm, mechanical aortic valve click. Mild systolic murmur Abdomen: Bowel Sounds Present, Soft, Non Tender, Non-Distended : No dysuria. No renal angle tenderness. No suprapubic tenderness. Extremities: Bilateral lower extremity edema, Dirk wrap bandage applied capillary Refill Less than 3 Seconds Skin: No rashes, No breakdown Musculoskeletal: No Tenderness to Palpation of Joints or Extremities ROM restricted. Neurological: Cranial nerves II-XII grossly intact, DTR 2+/4. Lower extremity neuropathy Psych/Mental Status: Flat affect Assessment & Plan Assessment/Plan (1) Pneumonia: (2) Hypoxia: PLAN: Plan The patient is a 79 y/o M was admitted with worsening dyspnea fatigue cough congestion rhinorrhea for last 6 days. #1. Possible right lower lobe community-acquired pneumonia with hypoxia: Patient is being admitted in PCU. Mild sore symptoms but no endorgan damage, sepsis ruled out. Urinary antigens, respiratory panel are negative. Triple PCR for SARS-CoV-2, flu and RSV are negative. Chest x-ray initially reviewed and shows bilateral CP angle blunting possible due to pleural thickening/small effusion. Persistent or residual area of medial right lower lobe collapse. Remainder of right mid and lower lung is improved from prior x-ray of 07/11/2019 with improved aeration. On IV ceftriaxone and azithromycin #2. PAF with RVR, probably due to pneumonia: Serial troponins are flat and intermittent, 35, 33 and 40. No significant delta response. Patient denies chest pain/pressure. ACS ruled out. 3. Anxiety and depression/panic disorder/PTSD and occasional hallucinations: Patient on duloxetine melatonin and low-dose lorazepam at home with holding parameters for #4. JEFF on CKD stage IIb:: Admission BUN/Cr 19/1.27, GFR 57, mildly elevated from baseline0.8-0.9. Repeat similar 1.28. It shows increase in 0.3 mg from baseline #5. Hypertension: Continue home regimen including metoprolol. #6. Crohn's disease with history of colovesical fistula: Patient had surgery and resection of portion of colon in the past. Has incisional hernia 7. Mild chronic microcytic pneumonia: Admission hemoglobin 13.8, MCV 94.2, baseline hemoglobin previously primarily 12 range however this is remote from 2023. On baseline. 8. DVT Prophylaxis: Continue coumadin with INR trending. Admission INR 2.6. CODE status: Patient GAYE is his daughter and living will is living will is currently in place. Discussed CODE status at length including difference between FULL code, DNR-CCA and DNR-CC status. Following discussions about the differences in these status, requested Full Code status. Charges/Coding Visit Charges Inpatient E&M: 18168 Subs Hosp L2
[2024-08-23] MEDS: Ferrous Sulfate 325 MG Tablet PO (13:30)
[2024-08-23] MEDS: MELATONIN 10 MG TABLET PO (22:02)
[2024-08-24] VITALS (10 sets, daily range): BP systolic 105–134; BP diastolic 57–77; PULSE 82–95; RESP 18–22; TEMP 36.3–37.2; O2SAT 93–97; BMI 30.4
[2024-08-24] MEDS: Albuterol 2.5 MG/3 ML VIAL.NEB. INHALATION (04:00)
[2024-08-24 05:49] LABS: Absolute Lymphocyte Count 0.85 X10^3/uL (0.83-4.51); Absolute Neutrophil Count 4.2 X10^3/uL (2.0-7.7); Basophil# 0.08 X10^3/uL; Basophil% 1.2 % (0-1); Eosinophil# 0.14 X10^3/uL; Eosinophils% 2.1 % (0-5); Hematocrit 37.4 % (40-54); Hemoglobin 12.5 g/dL (13.0-16.5); Lymphocyte # 0.85 X10^3/ul (0.83-4.51); Lymphocyte % 12.7 % (19-41); Mean Corp Hgb Conc 33.4 g/dL (32-36); Mean Corpuscular Hgb 31.8 pg (27.0-32.0); Mean Corpuscular Volume 95.2 fL (80-94); Mean Platelet Vol. 10.7 fl (6.2-12.0); Monocyte# 1.39 X10^3/uL; Monocyte% 20.8 % (0-10); NRBC Flagged by Analyzer 0 % (0-5); Neutrophil # 4.19 X10^3/uL (2.7-7.7); Neutrophil % 62.8 % (47-70); Platelet Count 165 K/mm3 (150-450); RBC Distribution Width CV 14.5 % (11.6-14.6); RBC Distribution Width SD 50.9 fl (35.1-43.9); Red Blood Count 3.93 M/mm3 (4.6-6.2); White Blood Count 6.7 K/mm3 (4.4-11.0)
[2024-08-24 06:16] LABS: International Normalized Ratio 1.9; Prothrombin Time (Protime)PT. 22.5 SECONDS (11.7-14.9)
[2024-08-24 06:33] LABS: ALB/GLOB Ratio 0.9 RATIO (0.9-2.4); AST(SGOT) 57 U/L (<=37); Alanine Aminotransfer ALT/SGPT 25 U/L (<=46); Albumin, Serum 3.4 g/dL (3.4-4.8); Alkaline Phosphatase 171 U/L (40-129); Anion Gap 11 (5-15); BUN 14 mg/dL (4-19); BUN/Creat Ratio 13.9 RATIO (10-20); Calcium,Total 8.7 mg/dL (7.6-11.0); Carbon Dioxide 22.2 mmol/L (21.0-32.0); Chloride 102 mmol/L (98-108); Creatinine, Serum 1.03 mg/dL (0.70-1.20); EST Glomerular Filtration Rate 74 (>60); Estimated Creatinine Clearance 71.82 ml/min (50-250); Globulin 3.8 g/dL (2.2-4.2); Glucose 93 mg/dL (70-99); Potassium 4.3 mmol/L (3.3-5.1); Protein, Total 7.2 g/dL (5.9-8.4); Sodium Level 135 mmol/L (133-145); Total Bilirubin 1.11 mg/dL (0.00-1.30)
[2024-08-24] MEDS: Budesonide Respules 0.5 MG/2 ML AMPUL.NEB. INHALATION ×2 (07:12→20:02)
[2024-08-24] MEDS: DULoxetine Hcl 60 MG Capsule PO (08:50)
[2024-08-24] MEDS: Lactobacillis Acidophilus 1 CAP PO ×2 (08:50→22:16)
[2024-08-24] MEDS: Acetaminophen 325 MG Tablet 650 MG PO (08:59)
[2024-08-24] MEDS: guaiFENesin 10 ML UDC (200MG/10ML) 20 ML PO (08:59)
[2024-08-24] MEDS: LORazepam 0.5 MG Tablet PO ×2 (08:59→22:16)
[2024-08-24] MEDS: Phenol/Sodium Phenolate 180ML 5 SPRAY MUCOUS MEM ×2 (12:32→15:01)
[2024-08-24] MEDS: Nystatin Powder 15gm Bottle 1 APPLIC TOPICAL (12:32)
[2024-08-24] MEDS: Ferrous Sulfate 325 MG Tablet PO (12:32)
[2024-08-24] MEDS: Ipratropium/Albuterol Sulfate 3 ML AMPUL.NEB INHALATION ×2 (13:20→20:02)
[2024-08-24] MEDS: Acetylcysteine 800 MG/4 ML VIAL.NEB. INHALATION ×2 (13:20→20:02)
--- NOTE | 2024-08-24 13:25 | PCM.PN.HOSP ---
Reason for Visit Reason for Visit: Diagnoses Pneumonia, unspecified organism (08/23/24) Hypoxemia (08/23/24) Objective Data Objective Data Vital Signs: Vital Signs Temp Pulse Resp BP Pulse Ox O2 Del Method O2 Flow Rate 98.9 F 87 18 105/61 93 Nasal Cannula 2 08/24/24 08:39 08/24/24 08:39 08/24/24 08:39 08/24/24 08:39 08/24/24 11:42 08/24/24 08:39 08/24/24 11:42 Oxygen Flow Rate (L/min) 2 Oxygen Delivery Method Nasal Cannula Weight: 224 lb 10.417 oz Body Mass Index (BMI) 30.4 Intake & Output: Intake and Output for Last 24 Hours 08/22/24 08/23/24 08/24/24 23:59 23:59 23:59 Intake Total 3969.25 / 4089.25 595 / 595 Output Total 300 / 875 900 / 900 Balance 3669.25 / 3214.25 -305 / -305 Lab / Micro Data 08/24/24 04:54 08/24/24 04:54 Labs: Laboratory Results - last 24 hr 08/24/24 04:54: WBC 6.7, RBC 3.93 L, Hgb 12.5 L, Hct 37.4 L, MCV 95.2 H, MCH 31.8, MCHC 33.4, RDW Std Deviation 50.9 H, RDW Coeff of Rich 14.5, Plt Count 165, MPV 10.7, Immature Gran % (Auto) 0.400, Neut % (Auto) 62.8, Lymph % (Auto) 12.7 L, [place] % (Auto) 20.8 H, Eos % (Auto) 2.1, Baso % (Auto) 1.2 H, Absolute Neuts (auto) 4.2, Absolute Lymphs (auto) 0.85, Nucleated RBC % 0, PT 22.5 H, INR 1.9, Sodium 135, Potassium 4.3, Chloride 102, Carbon Dioxide 22.2, Anion Gap 11, BUN 14, Creatinine 1.03, Estim Creat Clear Calc 71.82, Est GFR (MDRD) Non-Af 74, BUN/Creatinine Ratio 13.9, Glucose 93, Calcium 8.7, Total Bilirubin 1.11, AST 57 H, ALT 25, Alkaline Phosphatase 171 H, Total Protein 7.2, Albumin 3.4, Globulin 3.8, Albumin/Globulin Ratio 0.9 Micro: Microbiology 08/23/24 06:10 Sputum, Expectorated/Coughed Gram Stain - Final 08/23/24 06:10 Sputum, Expectorated/Coughed Respiratory Culture - Preliminary Gram negative bolivar 08/23/24 01:45 Urine, Clean Catch Urine Culture - Preliminary Culture exhibits no growth. 08/23/24 01:45 Urine, Random Legionella Antigen - Final 08/23/24 01:45 Urine, Random Streptococcus pneumoniae Antigen (M - Final 08/23/24 03:38 Mucosa - Nasopharyngeal Respiratory Panel (PCR) - Final 08/23/24 00:25 Mucosa - Nose SARS-CoV-2, Influenza & RSV (PCR) - Final Physical Exam Narrative Seen and examined Patient on 2 L of oxygen. Complain of chest congestion and mucus stuck in the chest. Leg swelling is better Patient states he is not on home oxygen. He has chronic leg pain and neuropathy and leg swelling. He has gait instability and follows in the outpatient PT. Patient admitted with worsening 5 to 6 days of cough runny nose and worsening shortness of breath for 2 days. History of mechanical aortic valve replacement, A-fib Physical exam General: Alert, Oriented x3, Cooperative. BMI 30.0 kg/m? HEENT: Atraumatic, PERRLA, EOMI, Normocephalic Oral: No Gingival or Mucosal Lesions/ Ulcerations Neck: Supple, No JVD, Negative Carotid Bruits Chest wall/Lungs: Air entry diminished in right lung base and peripheral lung cuevas. Bilateral lung bases coarse crepitations Cardiovascular: Sinus rhythm, mechanical aortic valve click. Mild systolic murmur Abdomen: Bowel Sounds Present, Soft, Non Tender, Non-Distended : No dysuria. No renal angle tenderness. No suprapubic tenderness. Extremities: Bilateral lower extremity edema, Dirk wrap bandage applied capillary Refill Less than 3 Seconds Skin: No rashes, No breakdown Musculoskeletal: No Tenderness to Palpation of Joints or Extremities ROM restricted. Neurological: Cranial nerves II-XII grossly intact, DTR 2+/4. Lower extremity neuropathy Psych/Mental Status: Flat affect Assessment & Plan Assessment/Plan (1) Pneumonia: (2) Hypoxia: PLAN: Plan The patient is a 79 y/o M was admitted with worsening dyspnea fatigue cough congestion rhinorrhea for last 6 days. #1. Possible right lower lobe community-acquired pneumonia with hypoxia: Patient is being admitted in PCU. Mild sore symptoms but no endorgan damage, sepsis ruled out. Urinary antigens, respiratory panel are negative. Triple PCR for SARS-CoV-2, flu and RSV are negative. Chest x-ray initially reviewed and shows bilateral CP angle blunting possible due to pleural thickening/small effusion. Persistent or residual area of medial right lower lobe collapse. Remainder of right mid and lower lung is improved from prior x-ray of 07/11/2019 with improved aeration. On IV ceftriaxone and azithromycin 08/24: Patient improving but is still chest congestion and mild shortness of breath. Mucomyst inhalation ordered. Patient on Mucinex DM. Advised aggressive incentive spirometry. #2. PAF with RVR, probably due to pneumonia, status post mechanical AVR and pulmonary valve replaced: Serial troponins are flat and intermittent, 35, 33 and 40. No significant delta response. Patient denies chest pain/pressure. ACS ruled out. Patient has mechanical AV valve replacement and pulmonic valve replacement in January 2024. Transesophageal echocardiogram with EF 55%, moderate biatrial dilatation, no evidence of infective endocarditis, stable appearing mechanical aortic valve apparatus, pulmonic valve was not well-visualized on this echocardiogram. 08/24 INR is 1.9, goal INR for mechanical AVR about 3.0. Additional warfarin 2 mg x 1 dose ordered. INR decreased probably due to drug-drug interaction with azithromycin and duloxetine. Azithromycin discontinued and replaced with doxycycline 100 mg p.o. twice daily. Duloxetine dose decreased as patient has neuropathy therefore cannot discontinue IT. 3. Anxiety and depression/panic disorder/PTSD and occasional hallucinations: Patient on duloxetine melatonin and low-dose lorazepam at home with holding parameters for #4. JEFF on CKD stage IIb:: Admission BUN/Cr 19/1.27, GFR 57, mildly elevated from baseline0.8-0.9. Repeat similar 1.28. It shows increase in 0.3 mg from baseline #5. Hypertension: Continue home regimen including metoprolol. #6. Crohn's disease with history of colovesical fistula: Patient had surgery and resection of portion of colon in the past. Has incisional hernia 7. Mild chronic microcytic pneumonia: Admission hemoglobin 13.8, MCV 94.2, baseline hemoglobin previously primarily 12 range however this is remote from 2023. On baseline. 8. DVT Prophylaxis: Continue coumadin with INR trending. Admission INR 2.6. CODE status: Patient GAYE is his daughter and living will is living will is currently in place. Discussed CODE status at length including difference between FULL code, DNR-CCA and DNR-CC status. Following discussions about the differences in these status, requested Full Code status. Charges/Coding Visit Charges Inpatient E&M: 49752 Subs Hosp L2
[2024-08-24] MEDS: Metoprolol Tartrate 50 MG Tablet PO (14:58)
[2024-08-24] MEDS: Jantoven 2 MG Tablet PO (17:16)
[2024-08-24] MEDS: Ceftriaxone 1 GM/50 ML BAG IV (22:16)
[2024-08-24] MEDS: MELATONIN 10 MG TABLET PO (22:16)
[2024-08-24] MEDS: Doxycycline 100 MG CAPSULE PO (22:21)
[2024-08-25] VITALS (12 sets, daily range): BP systolic 100–119; BP diastolic 58–99; PULSE 72–89; RESP 18–20; TEMP 36.7–37.2; O2SAT 93–98; BMI 30.2
[2024-08-25] MEDS: guaiFENesin 10 ML UDC (200MG/10ML) 20 ML PO (02:36)
[2024-08-25] MEDS: Ipratropium/Albuterol Sulfate 3 ML AMPUL.NEB INHALATION ×4 (02:54→20:25)
[2024-08-25 05:54] LABS: Absolute Lymphocyte Count 0.59 X10^3/uL (0.83-4.51); Absolute Neutrophil Count 5.8 X10^3/uL (2.0-7.7); Basophil# 0.05 X10^3/uL; Basophil% 0.6 % (0-1); Eosinophil# 0.19 X10^3/uL; Eosinophils% 2.5 % (0-5); Hematocrit 36.9 % (40-54); Hemoglobin 12.3 g/dL (13.0-16.5); Lymphocyte # 0.59 X10^3/ul (0.83-4.51); Lymphocyte % 7.6 % (19-41); Mean Corp Hgb Conc 33.3 g/dL (32-36); Mean Corpuscular Hgb 31.3 pg (27.0-32.0); Mean Corpuscular Volume 93.9 fL (80-94); Mean Platelet Vol. 10.2 fl (6.2-12.0); Monocyte# 1.07 X10^3/uL; Monocyte% 13.8 % (0-10); NRBC Flagged by Analyzer 0 % (0-5); Neutrophil % 75.1 % (47-70); POSITIVE DIFFERENTIAL YES; Platelet Count 174 K/mm3 (150-450); RBC Distribution Width CV 14.4 % (11.6-14.6); RBC Distribution Width SD 50.3 fl (35.1-43.9); Red Blood Count 3.93 M/mm3 (4.6-6.2); White Blood Count 7.7 K/mm3 (4.4-11.0)
[2024-08-25 06:08] LABS: Prothrombin Time (Protime)PT. 22.7 SECONDS (11.7-14.9)
[2024-08-25 06:29] LABS: Anion Gap 10 (5-15); BUN 14 mg/dL (4-19); BUN/Creat Ratio 15.8 RATIO (10-20); Calcium,Total 8.6 mg/dL (7.6-11.0); Carbon Dioxide 23.6 mmol/L (21.0-32.0); Chloride 102 mmol/L (98-108); Creatinine, Serum 0.87 mg/dL (0.70-1.20); EST Glomerular Filtration Rate 88 (>60); Estimated Creatinine Clearance 84.72 ml/min (50-250); Glucose 99 mg/dL (70-99); Potassium 4.3 mmol/L (3.3-5.1); Sodium Level 135 mmol/L (133-145)
[2024-08-25] MEDS: Acetylcysteine 800 MG/4 ML VIAL.NEB. INHALATION ×3 (06:34→20:25)
[2024-08-25] MEDS: Budesonide Respules 0.5 MG/2 ML AMPUL.NEB. INHALATION ×2 (06:34→20:25)
[2024-08-25] MEDS: DULoxetine Hcl 30 MG Capsule PO (08:25)
[2024-08-25] MEDS: Metoprolol Tartrate 50 MG Tablet PO ×2 (08:25→22:24)
[2024-08-25] MEDS: Lactobacillis Acidophilus 1 CAP PO ×2 (08:25→22:23)
[2024-08-25] MEDS: Doxycycline 100 MG CAPSULE PO (08:26)
[2024-08-25] MEDS: Nystatin Powder 15gm Bottle 1 APPLIC TOPICAL (08:26)
--- NOTE | 2024-08-25 08:29 | PCM.PN.HOSP ---
Reason for Visit Reason for Visit: Diagnoses Pneumonia, unspecified organism (08/23/24) Hypoxemia (08/23/24) Subjective Subjective Still with LE edema. Objective Data Objective Data Vital Signs: Vital Signs Temp Pulse Resp BP Pulse Ox O2 Del Method O2 Flow Rate 36.8 C 87 18 119/62 94 Nasal Cannula 2 08/25/24 08:22 08/25/24 08:22 08/25/24 08:22 08/25/24 08:22 08/25/24 08:22 08/25/24 08:22 08/25/24 08:22 Oxygen Flow Rate (L/min) 2 Oxygen Delivery Method Nasal Cannula Weight: 101.1 kg Body Mass Index (BMI) 30.2 Intake & Output: Intake and Output for Last 24 Hours 08/23/24 08/24/24 08/25/24 23:59 23:59 23:59 Intake Total 4220.00 / 4340.00 1095 / 1095 Output Total 300 / 875 900 / 900 Balance 3920.00 / 3465.00 195 / 195 Lab / Micro Data 08/25/24 05:19 08/25/24 05:19 Labs: Laboratory Results - last 24 hr 08/25/24 05:19: WBC 7.7, RBC 3.93 L, Hgb 12.3 L, Hct 36.9 L, MCV 93.9, MCH 31.3, MCHC 33.3, RDW Std Deviation 50.3 H, RDW Coeff of Rich 14.4, Plt Count 174, MPV 10.2, Immature Gran % (Auto) 0.400, Neut % (Auto) 75.1 H, Lymph % (Auto) 7.6 L, [place] % (Auto) 13.8 H, Eos % (Auto) 2.5, Baso % (Auto) 0.6, Absolute Neuts (auto) 5.8, Absolute Lymphs (auto) 0.59 L, Nucleated RBC % 0, PT 22.7 H, INR 2.0, Sodium 135, Potassium 4.3, Chloride 102, Carbon Dioxide 23.6, Anion Gap 10, BUN 14, Creatinine 0.87, Estim Creat Clear Calc 84.72, Est GFR (MDRD) Non-Af 88, BUN/Creatinine Ratio 15.8, Glucose 99, Calcium 8.6 Micro: Microbiology 08/23/24 01:45 Urine, Clean Catch Urine Culture - Final Culture exhibits no growth. 08/23/24 06:10 Sputum, Expectorated/Coughed Gram Stain - Final 08/23/24 06:10 Sputum, Expectorated/Coughed Respiratory Culture - Preliminary Serratia marcescens 08/23/24 01:45 Urine, Random Legionella Antigen - Final 08/23/24 01:45 Urine, Random Streptococcus pneumoniae Antigen (M - Final 08/23/24 03:38 Mucosa - Nasopharyngeal Respiratory Panel (PCR) - Final 08/23/24 00:25 Mucosa - Nose SARS-CoV-2, Influenza & RSV (PCR) - Final Physical Exam Const alert and no apparent distress Constitutional Narrative: No respiratory distress. No conversational dyspnea. HEENT head/scalp atraumatic and moist oral mucous membranes Resp normal respiratory effort, no retractions, no use of accessory muscles and clear to auscultation bilaterally Cardio regular rate, regular rhythm, S1 normal heart sound and S2 normal heart sound GI normal to inspection, nondistended, normoactive bowel sounds, soft to palpation, non-tender and non-distended Extremity Extremity Narrative: bilateral LE wrapped. Positive LE edema. Neuro Sensorium / Orientation: awake and alert Psych affect normal Assessment & Plan Assessment/Plan (1) CHF exacerbation: PLAN: No obvious infiltrate on CXR, but rather pulmonary vascular congestion and pleural effusions. Acute HFpEF. EF 55% on echo from 01/22/24 start furosemide IV. I do not feel that there is pneumonia at this time, so I will DC abx and observe. PLAN: Plan s/p mechanical AVR: continue warfarin Crohn's disease: stable. HTN: stable. metoprolol VTE prophylaxis: not indicated as already anticoagulated. Greater than 55 minutes of which greater than 50% of time was discussing with the patient about his CHF, edema but also listening to his he was concerned that he had about his cardiac history including endocarditis, valve replacements. Charges/Coding Visit Charges Inpatient E&M: 07065 [facility] Hosp L3
[2024-08-25] MEDS: LORazepam 0.5 MG Tablet PO ×2 (08:37→22:23)
[2024-08-25] MEDS: Furosemide 40 MG/4 ML Vial IV ×2 (09:46→17:03)
--- NOTE | 2024-08-25 10:27 | CASEMGMT ---
There was a consult placed for patient as he has black mold in his basement. SW met with patient again. When SW mentioned black mold. Patient said his girlfriend must be telling everyone this. Patient stated there might be black mold in his basement, but he is not that worried about it. Patient stated he could get some bleach and a broom and clean it up himself. SW offered some resources on companies that get rid of black mold. However, patient declined. Patient was thankful that SW did check in with him. Brianna KEN
[2024-08-25] MEDS: Ferrous Sulfate 325 MG Tablet PO (12:15)
[2024-08-25] MEDS: 0.9% Saline Lock 10 ML Syringe IV (17:03)
[2024-08-25] MEDS: MELATONIN 10 MG TABLET PO (22:24)
[2024-08-26] VITALS (13 sets, daily range): BP systolic 101–118; BP diastolic 61–78; PULSE 79–88; RESP 18–24; TEMP 36.3–36.8; O2SAT 86–96; BMI 28.5
[2024-08-26] MEDS: Ipratropium/Albuterol Sulfate 3 ML AMPUL.NEB INHALATION ×3 (02:34→19:02)
[2024-08-26 06:20] LABS: Absolute Lymphocyte Count 0.57 X10^3/uL (0.83-4.51); Basophil# 0.04 X10^3/uL; Basophil% 0.6 % (0-1); Eosinophils% 2.9 % (0-5); Hematocrit 37.1 % (40-54); Hemoglobin 12.6 g/dL (13.0-16.5); Lymphocyte # 0.57 X10^3/ul (0.83-4.51); Lymphocyte % 8.1 % (19-41); Mean Corpuscular Hgb 31.8 pg (27.0-32.0); Mean Corpuscular Volume 93.7 fL (80-94); Mean Platelet Vol. 10.4 fl (6.2-12.0); Monocyte# 1.19 X10^3/uL; NRBC Flagged by Analyzer 0 % (0-5); Neutrophil # 4.98 X10^3/uL (2.7-7.7); POSITIVE DIFFERENTIAL YES; Platelet Count 181 K/mm3 (150-450); RBC Distribution Width CV 14.4 % (11.6-14.6); RBC Distribution Width SD 49.5 fl (35.1-43.9); Red Blood Count 3.96 M/mm3 (4.6-6.2)
[2024-08-26 06:31] LABS: International Normalized Ratio 2.3; Prothrombin Time (Protime)PT. 25.9 SECONDS (11.7-14.9)
[2024-08-26 06:40] LABS: Anion Gap 9 (5-15); BUN 14 mg/dL (4-19); BUN/Creat Ratio 14.6 RATIO (10-20); Calcium,Total 8.7 mg/dL (7.6-11.0); Carbon Dioxide 27.2 mmol/L (21.0-32.0); Chloride 99 mmol/L (98-108); Creatinine, Serum 0.94 mg/dL (0.70-1.20); EST Glomerular Filtration Rate 82 (>60); Estimated Creatinine Clearance 76.43 ml/min (50-250); Glucose 108 mg/dL (70-99); Potassium 4.1 mmol/L (3.3-5.1); Sodium Level 135 mmol/L (133-145)
[2024-08-26] MEDS: Acetylcysteine 800 MG/4 ML VIAL.NEB. INHALATION ×2 (07:31→19:02)
[2024-08-26] MEDS: Budesonide Respules 0.5 MG/2 ML AMPUL.NEB. INHALATION ×2 (07:36→19:03)
--- NOTE | 2024-08-26 08:25 | PN.HOSP_ITS ---
Reason for Visit Reason for Visit: Diagnoses Heart failure, unspecified (08/23/24) Pneumonia, unspecified organism (08/23/24) Hypoxemia (08/23/24) Subjective Subjective Coughing up phlegm. Objective Data Objective Data Vital Signs: Vital Signs Temp Pulse Resp BP Pulse Ox O2 Del Method O2 Flow Rate 36.8 C 79 24 H 110/61 95 Nasal Cannula 2 08/26/24 03:00 08/26/24 07:31 08/26/24 07:31 08/26/24 03:00 08/26/24 07:31 08/26/24 07:31 08/26/24 07:31 Oxygen Flow Rate (L/min) 2 Oxygen Delivery Method Nasal Cannula Weight: 95.6 kg Body Mass Index (BMI) 28.5 Intake & Output: Intake and Output for Last 24 Hours 08/24/24 08/25/24 08/26/24 23:59 23:59 23:59 Intake Total 1095 / 1095 240 / 540 560 / 560 Output Total 900 / 900 1525 / 2420 1195 / 1195 Balance 195 / 195 -1285 / -1880 -635 / -635 Lab / Micro Data 08/26/24 05:57 08/26/24 05:57 Labs: Laboratory Results - last 24 hr 08/26/24 05:57: WBC 7.0, RBC 3.96 L, Hgb 12.6 L, Hct 37.1 L, MCV 93.7, MCH 31.8, MCHC 34.0, RDW Std Deviation 49.5 H, RDW Coeff of Rich 14.4, Plt Count 181, MPV 10.4, Immature Gran % (Auto) 0.400, Neut % (Auto) 71.0 H, Lymph % (Auto) 8.1 L, [place] % (Auto) 17.0 H, Eos % (Auto) 2.9, Baso % (Auto) 0.6, Absolute Neuts (auto) 5.0, Absolute Lymphs (auto) 0.57 L, Nucleated RBC % 0, PT 25.9 H, INR 2.3, Sodium 135, Potassium 4.1, Chloride 99, Carbon Dioxide 27.2, Anion Gap 9, BUN 14, Creatinine 0.94, Estim Creat Clear Calc 76.43, Est GFR (MDRD) Non-Af 82, BUN/Creatinine Ratio 14.6, Glucose 108 H, Calcium 8.7 Micro: Microbiology 08/23/24 06:10 Sputum, Expectorated/Coughed Gram Stain - Final 08/23/24 06:10 Sputum, Expectorated/Coughed Respiratory Culture - Preliminary Serratia marcescens 08/23/24 00:15 Blood Culture (Wb) - Left Forearm Blood Culture - Preliminary No growth in 48 hours. 08/23/24 00:15 Blood Culture (Wb) - Anticubital Left Blood Culture - Preliminary No growth in 48 hours. 08/23/24 01:45 Urine, Clean Catch Urine Culture - Final Culture exhibits no growth. 08/23/24 01:45 Urine, Random Legionella Antigen - Final 08/23/24 01:45 Urine, Random Streptococcus pneumoniae Antigen (M - Final 08/23/24 03:38 Mucosa - Nasopharyngeal Respiratory Panel (PCR) - Final 08/23/24 00:25 Mucosa - Nose SARS-CoV-2, Influenza & RSV (PCR) - Final Physical Exam Const alert and no apparent distress Constitutional Narrative: up in chair. no respiratory distress. HEENT head/scalp atraumatic and moist oral mucous membranes Resp normal respiratory effort, no retractions, no use of accessory muscles and clear to auscultation bilaterally Cardio regular rate, regular rhythm, S1 normal heart sound and S2 normal heart sound GI normal to inspection, nondistended, normoactive bowel sounds, soft to palpation, non-tender and non-distended Neuro Sensorium / Orientation: awake and alert Assessment & Plan Assessment/Plan (1) CHF exacerbation: PLAN: No obvious infiltrate on CXR, but rather pulmonary vascular congestion and pleural effusions. Acute HFpEF. EF 55% on echo from 01/22/24 furosemide IV. (2) Pneumonia: PLAN: Serratia marcescens Will restart the ceftriaxone and then transition him over to Bactrim starting on the 26. Will need to be cautious with warfarin while on the Bactrim. PLAN: Plan s/p mechanical AVR: continue warfarin Crohn's disease: stable. HTN: stable. metoprolol VTE prophylaxis: not indicated as already anticoagulated. Charges/Coding Visit Charges Inpatient E&M: 52578 Subs Hosp L2
[2024-08-26] MEDS: LORazepam 0.5 MG Tablet PO ×2 (09:21→21:23)
[2024-08-26] MEDS: DULoxetine Hcl 30 MG Capsule PO (09:22)
[2024-08-26] MEDS: Ferrous Sulfate 325 MG Tablet PO (09:22)
[2024-08-26] MEDS: Lactobacillis Acidophilus 1 CAP PO ×2 (09:22→21:14)
[2024-08-26] MEDS: Nystatin Powder 15gm Bottle 1 APPLIC TOPICAL ×2 (09:30→21:14)
[2024-08-26] MEDS: 0.9% Saline Lock 10 ML Syringe IV ×2 (11:02→17:04)
[2024-08-26] MEDS: Furosemide 40 MG/4 ML Vial IV ×2 (11:02→17:03)
[2024-08-26] MEDS: guaiFENesin 600 MG Tablet PO ×2 (13:11→21:13)
[2024-08-26] MEDS: Ceftriaxone 1 GM/50 ML BAG IV (13:12)
[2024-08-26] MEDS: MELATONIN 10 MG TABLET PO (21:13)
[2024-08-26] MEDS: Metoprolol Tartrate 50 MG Tablet PO (21:13)
[2024-08-27] VITALS (8 sets, daily range): BP systolic 97–120; BP diastolic 55–67; PULSE 77–91; RESP 18–20; TEMP 36.3–37.2; O2SAT 87–95
[2024-08-27 06:02] LABS: Absolute Neutrophil Count 3.7 X10^3/uL (2.0-7.7); Basophil# 0.06 X10^3/uL; Basophil% 1.1 % (0-1); Eosinophil# 0.25 X10^3/uL; Eosinophils% 4.4 % (0-5); Hematocrit 39.9 % (40-54); Hemoglobin 13.4 g/dL (13.0-16.5); Lymphocyte % 10.6 % (19-41); Mean Corp Hgb Conc 33.6 g/dL (32-36); Mean Corpuscular Hgb 31.5 pg (27.0-32.0); Mean Corpuscular Volume 93.7 fL (80-94); Mean Platelet Vol. 10.5 fl (6.2-12.0); Monocyte# 1.09 X10^3/uL; Monocyte% 19.2 % (0-10); NRBC Flagged by Analyzer 0 % (0-5); Neutrophil # 3.65 X10^3/uL (2.7-7.7); Neutrophil % 64.2 % (47-70); POSITIVE DIFFERENTIAL YES; Platelet Count 198 K/mm3 (150-450); RBC Distribution Width CV 14.2 % (11.6-14.6); RBC Distribution Width SD 48.6 fl (35.1-43.9); Red Blood Count 4.26 M/mm3 (4.6-6.2); White Blood Count 5.7 K/mm3 (4.4-11.0)
[2024-08-27 06:55] LABS: Anion Gap 12 (5-15); BUN 13 mg/dL (4-19); BUN/Creat Ratio 13.2 RATIO (10-20); Calcium,Total 7.3 mg/dL (7.6-11.0); Chloride 98 mmol/L (98-108); Creatinine, Serum 0.99 mg/dL (0.70-1.20); EST Glomerular Filtration Rate 78 (>60); Estimated Creatinine Clearance 72.57 ml/min (50-250); Glucose 104 mg/dL (70-99); Sodium Level 135 mmol/L (133-145)
[2024-08-27] MEDS: Acetylcysteine 800 MG/4 ML VIAL.NEB. INHALATION ×2 (07:04→13:34)
[2024-08-27] MEDS: Ipratropium/Albuterol Sulfate 3 ML AMPUL.NEB INHALATION ×2 (07:04→13:34)
[2024-08-27] MEDS: Budesonide Respules 0.5 MG/2 ML AMPUL.NEB. INHALATION (07:04)
[2024-08-27] MEDS: LORazepam 0.5 MG Tablet PO (08:26)
[2024-08-27] MEDS: DULoxetine Hcl 30 MG Capsule PO (08:26)
[2024-08-27] MEDS: Smz/Tmp Ds Tablet 1 TABLET PO (08:27)
[2024-08-27] MEDS: guaiFENesin 600 MG Tablet PO (08:27)
[2024-08-27] MEDS: Metoprolol Tartrate 50 MG Tablet PO (08:27)
[2024-08-27] MEDS: Lactobacillis Acidophilus 1 CAP PO (08:27)
--- NOTE | 2024-08-27 08:43 | PCM.PN.HOSP ---
Reason for Visit Reason for Visit: Diagnoses Heart failure, unspecified (08/23/24) Pneumonia, unspecified organism (08/23/24) Hypoxemia (08/23/24) Subjective Subjective Feeling better after this morning. No acute medical issues, but was overwhelmed. Objective Data Objective Data Vital Signs: Vital Signs Temp Pulse Resp BP Pulse Ox O2 Del Method O2 Flow Rate 36.6 C 84 18 97/67 91 Nasal Cannula 2 08/27/24 08:24 08/27/24 08:27 08/27/24 08:24 08/27/24 08:27 08/27/24 08:24 08/27/24 08:33 08/27/24 08:33 Oxygen Flow Rate (L/min) 2 Oxygen Delivery Method Nasal Cannula Weight: 95.6 kg Body Mass Index (BMI) 28.5 Intake & Output: Intake and Output for Last 24 Hours 08/25/24 08/26/24 08/27/24 23:59 23:59 23:59 Intake Total 240 / 540 1210 / 1210 Output Total 1525 / 2420 5045 / 5045 200 / 200 Balance -1285 / -1880 -3835 / -3835 -200 / -200 Lab / Micro Data 08/27/24 05:11 08/27/24 05:11 Labs: Laboratory Results - last 24 hr 08/27/24 05:11: WBC 5.7, RBC 4.26 L, Hgb 13.4, Hct 39.9 L, MCV 93.7, MCH 31.5, MCHC 33.6, RDW Std Deviation 48.6 H, RDW Coeff of Rich 14.2, Plt Count 198, MPV 10.5, Immature Gran % (Auto) 0.500, Neut % (Auto) 64.2, Lymph % (Auto) 10.6 L, [place] % (Auto) 19.2 H, Eos % (Auto) 4.4, Baso % (Auto) 1.1 H, Absolute Neuts (auto) 3.7, Absolute Lymphs (auto) 0.60 L, Nucleated RBC % 0, Sodium 135, Potassium 4.0, Chloride 98, Carbon Dioxide 25.0, Anion Gap 12, BUN 13, Creatinine 0.99, Estim Creat Clear Calc 72.57, Est GFR (MDRD) Non-Af 78, BUN/Creatinine Ratio 13.2, Glucose 104 H, Calcium 7.3 L Micro: Microbiology 08/23/24 06:10 Sputum, Expectorated/Coughed Gram Stain - Final 08/23/24 06:10 Sputum, Expectorated/Coughed Respiratory Culture - Final Serratia marcescens 08/23/24 00:15 Blood Culture (Wb) - Left Forearm Blood Culture - Preliminary No growth in 48 hours. 08/23/24 00:15 Blood Culture (Wb) - Anticubital Left Blood Culture - Preliminary No growth in 48 hours. 08/23/24 01:45 Urine, Clean Catch Urine Culture - Final Culture exhibits no growth. 08/23/24 01:45 Urine, Random Legionella Antigen - Final 08/23/24 01:45 Urine, Random Streptococcus pneumoniae Antigen (M - Final 08/23/24 03:38 Mucosa - Nasopharyngeal Respiratory Panel (PCR) - Final 08/23/24 00:25 Mucosa - Nose SARS-CoV-2, Influenza & RSV (PCR) - Final Physical Exam Const alert and no apparent distress HEENT head/scalp atraumatic and moist oral mucous membranes Resp normal respiratory effort, no retractions, no use of accessory muscles and clear to auscultation bilaterally Cardio regular rate, regular rhythm, S1 normal heart sound and S2 normal heart sound Extremity Extremity Narrative: decreased edema in LE. varicose veins in LE. Assessment & Plan Assessment/Plan (1) CHF exacerbation: PLAN: No obvious infiltrate on CXR, but rather pulmonary vascular congestion and pleural effusions. Acute HFpEF. EF 55% on echo from 01/22/24 furosemide IV. (2) Pneumonia: PLAN: Serratia marcescens Will restart the ceftriaxone and then transition him over to Bactrim starting on the . Will need to be cautious with warfarin while on the Bactrim, complete 7-days of abx (4 more days of oral). PLAN: Plan s/p mechanical AVR: continue warfarin Crohn's disease: stable. HTN: stable. metoprolol VTE prophylaxis: not indicated as already anticoagulated.
[2024-08-27 09:22] LABS: International Normalized Ratio 2.4; Prothrombin Time (Protime)PT. 26.3 SECONDS (11.7-14.9)
--- NOTE | 2024-08-27 12:38 | DS.PCM_ITS ---
Providers Date of Admission: 08/23/24 Primary Care Physician: Dr. Donaldo Larson, DO Reason For Visit: HYPOXIA, SUSPECTED PNA, PAF RVR Diagnosis Discharge Diagnosis (1) CHF exacerbation: Status: Chronic Code(s): I50.9 - Heart failure, unspecified Plan: No obvious infiltrate on CXR, but rather pulmonary vascular congestion and pleural effusions. Acute HFpEF. EF 55% on echo from 01/22/24 furosemide IV. (2) Pneumonia: Status: Acute Code(s): J18.9 - Pneumonia, unspecified organism Plan: Serratia marcescens Will restart the ceftriaxone and then transition him over to Bactrim starting on the . Will need to be cautious with warfarin while on the Bactrim, complete 7-days of abx (4 more days of oral). Plan s/p mechanical AVR: continue warfarin Crohn's disease: stable. HTN: stable. metoprolol VTE prophylaxis: not indicated as already anticoagulated. Medications at Discharge Home Medications ferrous sulfate 325 mg (65 mg iron) tablet (FeroSul) 325 mg PO LUNCH suppliment #30 tabs 05/04/23 melatonin 10 mg capsule 10 mg PO QHS SLEEP 30 days #0 caps 05/04/23 lorazepam 0.5 mg tablet 0.5 mg PO BID anxiety 05/21/23 warfarin 1 mg tablet 1 mg PO .COMPLEX BLOOD THINNER #180 tabs 08/02/23 warfarin 5 mg tablet 5 mg PO .COMPLEX BLOOD THINNER #90 tabs 08/02/23 metoprolol tartrate 50 mg tablet 50 mg PO BID BLOOD PRESSURE #180 TABLETS 12/17/23 duloxetine 60 mg capsule,delayed release 60 mg PO DAILY DEPRESSION #90 caps 12/24/23 ascorbic acid (vitamin C) 500 mg tablet (C-500) 500 mg PO DAILY suppliment 01/19/24 b12 gummy 1 gummy PO DAILY suppliment 01/26/24 nystatin 100,000 unit/gram topical powder (Nyamyc) 1 applic topical BID 08/23/24 triamcinolone acetonide 0.1 % topical cream 1 applic topical TID PRN PRN affected area 08/23/24 furosemide 40 mg tablet 40 mg PO DAILY #30 tabs 08/27/24 guaifenesin 600 mg tablet, extended release 12 hr (Mucinex) 600 mg PO BID #10 tabs 08/27/24 sulfamethoxazole 800 mg-trimethoprim 160 mg tablet 1 tab PO BIDCM #7 tabs 08/27/24 Hospital Course Operations None Procedures None Summary of Care Provided Minutes Spent on Discharge: 40 Hospital Course: Patient presents with shortness of breath. Found to have CHF and was started on furosemide. Initially could not rule out pneumonia so patient was started on ceftriaxone. When I evaluated and actually felt that he had pneumonia but rather CHF but his sputum culture came back showing Serratia so patient will continue with his antibiotics with Bactrim the Serratia is sensitive to that. His INR will need to be followed up closely as it could potentially interfere with his INR. Currently his INR is 2.4 with him having an aortic valve replacement his INR should be around 2.5-3. Patient was ambulated and will require oxygen upon discharge. Weight / BMI Weight Weight: 95.6 kg Body Mass Index (BMI) 28.5 ABG / Lab / Microbiology Data 08/27/24 05:11 08/27/24 05:11 Laboratory: Laboratory Results - last 24 hr 08/27/24 05:11: WBC 5.7, RBC 4.26 L, Hgb 13.4, Hct 39.9 L, MCV 93.7, MCH 31.5, MCHC 33.6, RDW Std Deviation 48.6 H, RDW Coeff of Rich 14.2, Plt Count 198, MPV 10.5, Immature Gran % (Auto) 0.500, Neut % (Auto) 64.2, Lymph % (Auto) 10.6 L, M sanjay % (Auto) 19.2 H, Eos % (Auto) 4.4, Baso % (Auto) 1.1 H, Absolute Neuts (auto) 3.7, Absolute Lymphs (auto) 0.60 L, Nucleated RBC % 0, PT 26.3 H, INR 2.4, Sodium 135, Potassium 4.0, Chloride 98, Carbon Dioxide 25.0, Anion Gap 12, BUN 13, Creatinine 0.99, Estim Creat Clear Calc 72.57, Est GFR (MDRD) Non-Af 78, BUN/Creatinine Ratio 13.2, Glucose 104 H, Calcium 7.3 L Microbiology: Microbiology 08/23/24 06:10 Sputum, Expectorated/Coughed Gram Stain - Final 08/23/24 06:10 Sputum, Expectorated/Coughed Respiratory Culture - Final Serratia marcescens 08/23/24 00:15 Blood Culture (Wb) - Left Forearm Blood Culture - Preliminary No growth in 48 hours. 08/23/24 00:15 Blood Culture (Wb) - Anticubital Left Blood Culture - Preliminary No growth in 48 hours. 08/23/24 01:45 Urine, Clean Catch Urine Culture - Final Culture exhibits no growth. 08/23/24 01:45 Urine, Random Legionella Antigen - Final 08/23/24 01:45 Urine, Random Streptococcus pneumoniae Antigen (M - Final 08/23/24 03:38 Mucosa - Nasopharyngeal Respiratory Panel (PCR) - Final 08/23/24 00:25 Mucosa - Nose SARS-CoV-2, Influenza & RSV (PCR) - Final D/C Instructions Discharge Diet: 2000 mg Sodium Diet and - (1.5 liters of IVF/day) DC O2, CPAP, BIPAP Needs Home O2 Discharge instructions: Yes Type of respiratory needs?: Oxygen (2) Oxygen frequency: Continuous Continuous oxygen liters per minute: 2 DC home with Oxygen: Yes Home O2 MD Review: I have reviewed the oxygen testing, and the patient qualifies for home oxygen equipment and portability. The patient is mobile in the home and the community. Meaningful Use Info Meaningful Use Meaningful Use Diagnoses (Choose all that apply): CHF CHF SARA/ARB ordered at discharge?: No Reason SARA/ARB not ordered?: Normal EF Documented LVEF (%): 55 Ischemic Stroke Statin Dosing Therapy Reference: STATIN DOSE THERAPY REFERENCE: * Patients > 75 years receive moderate or high dose statin therapy. * Patients 75 years or YOUNGER should receive HIGH intensity statin dose unless contraindicated. You will be required to document reason for non-treatment if statin daily dose does not meet guidelines. HIGH DOSE STATIN THERAPY DAILY Atorvastatin > than or = to 40 mg Rosuvastatin > than or = to 20 mg Amlodipine + Atorvastatin > than or = to 2.5/40 mg Ezetimibe + Simvastatin 10/80 mg Simvastatin 80mg Discharge Plan Admission Admit Date/Time: 08/23/24 02:32 Primary Reason for Your Visit: CHF exacerbation and pneumonia. Attending Provider: Braden Coto Primary Care Provider: Donaldo Larson Consulting Providers: Krys Bull; Zhang Florentino Instructions Patient Instructions: Heart Failure Flare Up Signs, Heart Failure: Tracking Your Weight, Heart Failure Make Changes Diet, Heart Failure Additional Instructions / Restrictions: You were admitted for heart failure and pneumonia. For heart failure you will be on furosemide (Lasix). And for the pneumonia you be on a short course of Bactrim. Bactrim can affect your INR so would like for you to have your INR checked next week. Discharge Orders/Prescriptions Prescriptions: New guaifenesin [Mucinex] 600 mg Tablet Extended Release 12hr 600 mg PO BID Qty: 10 0RF sulfamethoxazole-trimethoprim 800-160 mg Tablet 1 tab PO BIDCM Qty: 7 0RF furosemide 40 mg tablet 40 mg PO DAILY Qty: 30 0RF Continued lorazepam 0.5 mg tablet 0.5 mg PO BID ferrous sulfate [FeroSul] 325 mg (65 mg iron) Tablet 325 mg PO LUNCH Qty: 30 0RF melatonin 10 mg capsule 10 mg PO QHS 30 Days Qty: 0 0RF ascorbic acid (vitamin C) [C-500] 500 mg tablet 500 mg PO DAILY b12 gummy 1 gummy PO DAILY triamcinolone acetonide 0.1 % cream 1 applic topical TID PRN PRN (Reason: affected area) nystatin [Nyamyc] 100,000 unit/gram powder 1 applic topical BID warfarin 1 mg tablet 1 mg PO .COMPLEX Qty: 180 3RF Protocol: Dose Management Condition: Sunday Dose/Route: 6 mg Instruction: 1 x 1 mg tablet, 1 x 5 mg tablet Condition: Sunday Dose/Route: 6 mg Instruction: 1 x 1 mg tablet, 1 x 5 mg tablet Condition: Sunday Dose/Route: 6 mg Instruction: 1 x 1 mg tablet, 1 x 5 mg tablet Condition: Sunday Dose/Route: 6 mg Instruction: 1 x 1 mg tablet, 1 x 5 mg tablet Condition: Dose/Route: 6 mg Instruction: 1 x 1 mg tablet, 1 x 5 mg tablet Condition: Sunday Dose/Route: 6 mg Instruction: 1 x 1 mg tablet, 1 x 5 mg tablet Condition: Sunday Dose/Route: 6 mg Instruction: 1 x 1 mg tablet, 1 x 5 mg tablet Protocol Text: Adjustment Start Date: Sunday02/22/24 INR Value: 2.9 INR Date: 02/22/24 Recheck Date: 03/07/24 Rx Instructions: daily with a 5mg tablet to = 6 mg: dose changes often warfarin 5 mg tablet 5 mg PO .COMPLEX Qty: 90 3RF Protocol: Dose Management Condition: Sunday Dose/Route: 6 mg Instruction: 1 x 1 mg tablet, 1 x 5 mg tablet Condition: Sunday Dose/Route: 6 mg Instruction: 1 x 1 mg tablet, 1 x 5 mg tablet Condition: Sunday Dose/Route: 6 mg Instruction: 1 x 1 mg tablet, 1 x 5 mg tablet Condition: Sunday Dose/Route: 6 mg Instruction: 1 x 1 mg tablet, 1 x 5 mg tablet Condition: Dose/Route: 6 mg Instruction: 1 x 1 mg tablet, 1 x 5 mg tablet Condition: Sunday Dose/Route: 6 mg Instruction: 1 x 1 mg tablet, 1 x 5 mg tablet Condition: Sunday Dose/Route: 6 mg Instruction: 1 x 1 mg tablet, 1 x 5 mg tablet Protocol Text: Adjustment Start Date: Sunday02/22/24 INR Value: 2.9 INR Date: 02/22/24 Recheck Date: 03/07/24 Rx Instructions: 5 mg orally daily with a 1 mg tablet to = 6mg: dose changes often; metoprolol tartrate 50 mg tablet 50 mg PO BID Qty: 180 3RF Rx Instructions: TAKE 1 TABLET BY MOUTH TWICE A DAY duloxetine 60 mg capsule,delayed release(DR/EC) 60 mg PO DAILY Qty: 90 0RF Discontinued doxycycline hyclate 100 mg capsule 100 mg PO BID Referrals / Follow Up: Donaldo Larson DO [Primary Care Provider] - Within 2 Weeks Disposition Disposition (needs filled in before D/C Order can be placed): Home, Self Care Charges/Coding Visit Charges Inpatient E&M: 72578 Disch Hosp >30min
--- NOTE | 2024-08-27 14:51 | CASEMGMT ---
Patient has order for discharge. Patient qualifies for home oxygen, script received. IVY CM in to discuss needs at discharge. [place] [facility] [place]. Patient declines need for HHC or therapy at discharge. Patient had no further questions or concerns. IVY FERRERA sent referral [place] [facility] [place] [facility] and arranged for portable tank to be delivered to patient's room.
--- NOTE | 2024-08-27 15:20 | PHA.DC.MC.R ---
Pharmacy [facility] has performed discharge medication reconciliation and counseling for this patient. Prescriptions sent to [facility] in [place], pt would like them filled with [facility] retail and delivered. This [facility] spoke to Lana in retail, asked for transfer and delivery. 1. FUROSEMIDE 40MG PO DAILY 2. GUAIFENESIN 600MG PO BID 3. BACTRIM DS 1T PO BID X 7 DOSES (TOLD PT INR WILL NEED CHECKED) The patient's discharge medication list was reviewed for discrepancies and discrepancies were resolved. The patient was counseled on the following discharge medications and changes in medications for homegoing were reviewed. The Reason for Use, instructions for use, and potential side effects were reviewed for all new medications. The patient's questions regarding all of their medications were answered. The patient was able to verbally demonstrate an understanding of their discharge medications. Medications at Discharge Home Medications ferrous sulfate 325 mg (65 mg iron) tablet (FeroSul) 325 mg PO LUNCH suppliment #30 tabs 05/04/23 melatonin 10 mg capsule 10 mg PO QHS SLEEP 30 days #0 caps 05/04/23 lorazepam 0.5 mg tablet 0.5 mg PO BID anxiety 05/21/23 warfarin 1 mg tablet 1 mg PO .COMPLEX BLOOD THINNER #180 tabs 08/02/23 warfarin 5 mg tablet 5 mg PO .COMPLEX BLOOD THINNER #90 tabs 08/02/23 metoprolol tartrate 50 mg tablet 50 mg PO BID BLOOD PRESSURE #180 TABLETS 12/17/23 duloxetine 60 mg capsule,delayed release 60 mg PO DAILY DEPRESSION #90 caps 12/24/23 ascorbic acid (vitamin C) 500 mg tablet (C-500) 500 mg PO DAILY suppliment 01/19/24 b12 gummy 1 gummy PO DAILY suppliment 01/26/24 nystatin 100,000 unit/gram topical powder (Nyamyc) 1 applic topical BID 08/23/24 triamcinolone acetonide 0.1 % topical cream 1 applic topical TID PRN PRN affected area 08/23/24 furosemide 40 mg tablet 40 mg PO DAILY #30 tabs 08/27/24 guaifenesin 600 mg tablet, extended release 12 hr (Mucinex) 600 mg PO BID #10 tabs 08/27/24 sulfamethoxazole 800 mg-trimethoprim 160 mg tablet 1 tab PO BIDCM #7 tabs 08/27/24
--- NOTE | 2024-08-28 13:51 | CASEMGMT ---
See RN MAISHA DC f/u phone call. Anna Marie from [facility] returns call and states that they can accept for SOC Sunday. Anna Marie states that she will call and talk to the pt about this.
== END 2024-08-27 17:59 | disposition home health service (06) | DRG 177 ==
LOC: ED 02:20 → PCU 02:58
PROVIDERS: Internal Medicine; Admitting Provider Family Medicine; Emergency Provider Surgery; PCP Family Medicine
DX: J15.69 Pneumonia due to other Gram-negative bacteria (principal); I50.31 Acute diastolic (congestive) heart failure; I13.0 Hypertensive heart and chronic kidney disease with heart failure and stage 1 through stage 4 chronic kidney disease, or unspecified chronic kidney disease; K50.90 Crohn's disease, unspecified, without complications; N17.9 Acute kidney failure, unspecified; R44.3 Hallucinations, unspecified; D50.9 Iron deficiency anemia, unspecified; F32.A Depression, unspecified; Z95.2 Presence of prosthetic heart valve; I48.0 Paroxysmal atrial fibrillation; I35.9 Nonrheumatic aortic valve disorder, unspecified; K43.2 Incisional hernia without obstruction or gangrene; N18.2 Chronic kidney disease, stage 2 (mild); E78.00 Pure hypercholesterolemia, unspecified; Z79.01 Long term (current) use of anticoagulants; Z79.2 Long term (current) use of antibiotics; Z11.52 Encounter for screening for COVID-19; F43.10 Post-traumatic stress disorder, unspecified; R09.02 Hypoxemia; Z87.891 Personal history of nicotine dependence; R79.1 Abnormal coagulation profile; Z90.49 Acquired absence of other specified parts of digestive tract; Z88.5 Allergy status to narcotic agent; Z88.8 Allergy status to other drugs, medicaments and biological substances; Z79.899 Other long term (current) drug therapy
CPT/HCPCS: 36415; 71045; 80048; 80053; 81001; 83605; 83735; 83880; 84484; 85025; 85610; 85730; 87040; 87070; 87077; 87086; 87186; 87205; 87449; 87631; 87633; 92526; 92610; 93005; 94640; 97110; 97116; 97162; 97166; 97530; 97535; 97802; 99285; A4216; J1940

== ENCOUNTER 2024-10-11 20:52 | Emergency (ER) | payer MEDICARE, OTHER, SELFPAY ==
[2024-10-11 20:52] VITALS: BP 115/68; PULSE 71; RESP 18; TEMP 36.4; O2SAT 100
--- NOTE | 2024-10-11 21:08 | RAD_ITS ---
PROCEDURE: HIP, UNI W/ PELVIS 2-3 VIEWS 10/11/2024 REASON FOR EXAM: PAIN TECHNIQUE: Three views of the left hip COMPARISON: None FINDINGS: No acute fracture or dislocation. Diffuse osteopenia. Moderate bilateral osteoarthritis. No focal soft tissue abnormality. RAD/HIP, UNI W/ Pelvis 2-3 Views IMPRESSION: No acute findings. Moderate osteoarthritis. Reading Location: [facility]
--- NOTE | 2024-10-11 21:10 | ED.VIS.FALL ---
HPI <JAYNE Pelayo - Last Filed: 10/11/24 22:06> HPI - Fall History of Present Illness Chief Complaint: Fall Narrative Narrative: 79-year-old male was bending over trimming a small tree when he lost his balance and fell. To avoid hitting his head he landed on his left hip and left shoulder. He is on Coumadin for mechanical heart valve but states there was no head injury or LOC. He was able to get up and ambulate and eat dinner and presents due to left shoulder pain. He is right-hand dominant. He has no weakness or numbness or tingling. 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 Gastrointestinal bleed Post traumatic stress disorder Panic disorder Anxiety Streptococcal endocarditis Colovesical fistula Anxiety disorder History of endocarditis Home Medications ?Medication ?Instructions ?Recorded ?Last Taken ?Type ferrous sulfate 325 mg (65 mg 325 mg PO LUNCH suppliment #30 tabs 05/04/23 Unknown Rx iron) tablet (FeroSul) melatonin 10 mg capsule 10 mg PO QHS SLEEP 30 days #0 caps 05/04/23 04/24/23 Rx lorazepam 0.5 mg tablet 0.5 mg PO BID anxiety 05/21/23 08/22/24 22:58 History warfarin 1 mg tablet 1 mg PO .COMPLEX BLOOD THINNER 08/02/23 01/21/24 Rx #180 tabs metoprolol tartrate 50 mg tablet 50 mg PO BID BLOOD PRESSURE #180 12/17/23 01/21/24 Rx TABLETS duloxetine 60 mg capsule,delayed 60 mg PO DAILY DEPRESSION #90 caps 12/24/23 01/21/24 Rx release ascorbic acid (vitamin C) 500 mg 500 mg PO DAILY suppliment 01/19/24 Unknown History tablet (C-500) b12 gummy 1 gummy PO DAILY suppliment 01/26/24 Unknown History nystatin 100,000 unit/gram topical 1 applic topical BID 08/23/24 Unknown History powder (Nyamyc) triamcinolone acetonide 0.1 % 1 applic topical TID PRN PRN 08/23/24 Unknown History topical cream affected area furosemide 40 mg tablet 40 mg PO DAILY #30 tabs 08/27/24 Unknown Rx guaifenesin 600 mg tablet, 600 mg PO BID #10 tabs 08/27/24 Unknown Rx extended release 12 hr (Mucinex) sulfamethoxazole 800 1 tab PO BIDCM #7 tabs 08/27/24 Unknown Rx mg-trimethoprim 160 mg tablet warfarin 5 mg tablet 5 mg PO DAILY #90 TABLETS 08/28/24 Unknown Rx lidocaine 5 % topical patch 1 patch topical DAILY PRN pain 7 10/11/24 Unknown Rx (Lidoderm) days #15 ea Allergy/AdvReac Type Severity Reaction Status Date / Time fentanyl Allergy Severe Other Verified 10/11/24 20:54 levofloxacin AdvReac Severe Passed out Verified 10/11/24 20:54 Family History (Updated 08/23/24 @ 02:[address] Krys Bull MD) Father CAD (coronary artery disease) Heart disease Hypertension Myocardial infarction Mother Rheumatic fever Heart disease Surgical History History of prosthetic heart valve History of colonoscopy (~04/2023) History of mechanical aortic valve replacement History of herniorrhaphy History of colon resection H/O pulmonic valve replacement Social History household members: none Smoking Status: Former smoker how long ago did patient quit smokin years ago alcohol intake: current alcohol intake frequency: holidays/special occasions only Alcohol type: beer details: social caffeine: Yes Type: coffee Number of servings: 1 ROS <JAYNE Pelayo - Last Filed: 10/11/24 22:06> ROS ED ROS Narrative CVS: Negative for chest pain. Respiratory: Negative for shortness of breath. Neuro: Negative for motor/sensory dysfunction. Skin: Negative for abrasions or lacerations. Musc: Positive for left shoulder pain, trauma. EXAM <JAYNE Pelayo - Last Filed: 10/11/24 22:06> Physical Exam Narrative Exam Narrative: CONST: Patient sitting in no acute distress. EYES: Normal inspection. HEAD: Normocephalic atraumatic. NECK: Normal inspection. RESP: No respiratory distress, CTAB. Wearing portable nasal cannula oxygen. CVS: Click from mechanical heart valve, no murmur, no gallop. Back: Normal inspection, no midline tenderness. SKIN: Color normal, no rash, warm, dry, intact. EXTREMITIES: Patient is holding left shoulder against his body and has tenderness of the posterior shoulder. No deformity or crepitus. No tenderness of the elbow forearm wrist or hand. Normal motor and sensory function in axillary median radial ulnar distributions. 2+ radial pulses. Right upper extremity nontender. Bilateral lower extremities nontender, full range of motion, 2+ DP pulses. Chronic bilateral ankle pitting edema. NEURO: Alert and answering questions appropriately. PSYCH: Normal affect. Const Vital Signs: 10/11/24 20:52 10/11/24 22:04 Temperature 97.6 F L 97.6 F L Temperature Source Oral Pulse Rate 71 71 Respiratory Rate 18 18 Blood Pressure 115/68 115/68 Blood Pressure Mean 83 83 Pulse Ox 100 100 Oxygen Delivery Method Nasal Cannula Oxygen Flow Rate (L/min) 2 <Dr. Amor Carmona MD - Last Filed: 10/11/24 22:16> Physical Exam Const Vital Signs: 10/11/24 20:52 10/11/24 22:04 Temperature 97.6 F L 97.6 F L Temperature Source Oral Pulse Rate 71 71 Respiratory Rate 18 18 Blood Pressure 115/68 115/68 Blood Pressure Mean 83 83 Pulse Ox 100 100 Oxygen Delivery Method Nasal Cannula Oxygen Flow Rate (L/min) 2 [facility] [place] <JAYNE Pelayo - Last Filed: 10/11/24 22:06> [facility] Narrative Medical decision making narrative: History gathered from: Patient and spouse Differential includes extremity contusion, fracture, dislocation Patient had mechanical fall injuring his left shoulder and left hip. No head injury. He has ocular aura. He has no external signs of trauma. He is tender in the left proximal humerus and posterior shoulder with limited range of motion due to pain. No other bony tenderness present of upper or lower extremities. Neurovascular intact. Left shoulder and left hip x-rays are negative. He was given a dose of oxycodone here and instructed to ice and take Tylenol at home as well as given a lidocaine patch prescription. He was discharged in stable condition. I have personally performed a face to face assessment of the patient and have reviewed the REBA Note. I performed a substantive portion of the visit including all aspects of the following. My sauer findings include: History is remarkable for left shoulder pain posteriorly and left hip pain over the greater trochanteric region. Patient fell. He has had no prior injury to the hip or shoulder. He denies head trauma. He denies loss of conscious. Is not amnestic. Nuys neck pain. Nuys paresthesia, anesthesia or motor weakness. He denies chest pain. Is on oxygen for chronic respiratory failure. Exam is vital signs are unremarkable. There is no evidence of head trauma. There is pain ovation over the greater tuberosity of the left proximal humerus. There is no pain ovation over the clavicle or AC joint. There is no pain ovation over the lateral medial epicondyle, lateral process or radial head. Axillary, median, radial and ulnar function intact. Left hip is tender over the greater trochanteric region. Patient does have full active range of motion. There is no pain ovation over the iliac wing. Equivocal pain over the left ischial tuberosity. Medical Decision Making since there is no history of head trauma there is no evidence of head trauma he is not amnestic and did not have loss of conscious even though he is on Coumadin there is no indication for CT of the head. Since he has no neck pain and no true distracting injury C-spine x-rays were not obtained. Will obtain x-ray of the shoulder and hip to evaluate for contusion versus fracture. Patient may have a rotator cuff tear since he has pain to abduction starting at 60 degrees. He is unable to abduct actively past 30 to 40 degrees. His pain is in the area where the rotator cuff supraspinatus tendon with insert. Other additions or changes: [None] <Dr. Amor Carmona MD - Last Filed: 10/11/24 22:16> [facility] Narrative Medical decision making narrative: History gathered from: Patient and spouse Differential includes extremity contusion, fracture, dislocation Patient had mechanical fall injuring his left shoulder and left hip. No head injury. He has ocular aura. He has no external signs of trauma. He is tender in the left proximal humerus and posterior shoulder with limited range of motion due to pain. No other bony tenderness present of upper or lower extremities. Neurovascular intact. Left shoulder and left hip x-rays are negative. He was given a dose of oxycodone here and instructed to ice and take Tylenol at home as well as given a lidocaine patch prescription. He was discharged in stable condition. I have personally performed a face to face assessment of the patient and have reviewed the REBA Note. I performed a substantive portion of the visit including all aspects of the following. My sauer findings include: History is remarkable for left shoulder pain posteriorly and left hip pain over the greater trochanteric region. Patient fell. He has had no prior injury to the hip or shoulder. He denies head trauma. He denies loss of conscious. Is not amnestic. Nuys neck pain. Nuys paresthesia, anesthesia or motor weakness. He denies chest pain. Is on oxygen for chronic respiratory failure. Exam is vital signs are unremarkable. There is no evidence of head trauma. There is pain ovation over the greater tuberosity of the left proximal humerus. There is no pain ovation over the clavicle or AC joint. There is no pain ovation over the lateral medial epicondyle, lateral process or radial head. Axillary, median, radial and ulnar function intact. Left hip is tender over the greater trochanteric region. Patient does have full active range of motion. There is no pain ovation over the iliac wing. Equivocal pain over the left ischial tuberosity. Medical Decision Making since there is no history of head trauma there is no evidence of head trauma he is not amnestic and did not have loss of conscious even though he is on Coumadin there is no indication for CT of the head. Since he has no neck pain and no true distracting injury C-spine x-rays were not obtained. Will obtain x-ray of the shoulder and hip to evaluate for contusion versus fracture. Patient may have a rotator cuff tear since he has pain to abduction starting at 60 degrees. He is unable to abduct actively past 30 to 40 degrees. His pain is in the area where the rotator cuff supraspinatus tendon with insert. Other additions or changes: Three-view x-ray of the hip was obtained. There is some chronic changes noted. There is no evidence of fracture, subluxation dislocation of the femur or pelvis. 4 views of the shoulder was obtained. There is some minimal arthritic changes AC joint. There is no evidence of fracture, subluxation dislocation of the shoulder. Both bones are independent reviewed interpreted by me at 2155 Discharge Plan Triage Chief Complaint: Fall ED Midlevel Provider: Helga Lundy ED Provider: Amor Carmona Dx/Rx/DC Orders Clinical Impression: Contusion of left shoulder, Contusion of hip, left, Fall Instructions: Bruises (Contusions) Prescriptions: New lidocaine [Lidoderm] 5 % adhesive patch,medicated 1 patch topical DAILY PRN (Reason: pain) 7 Days Qty: 15 0RF Rx Instructions: leave on most painful area for up to 12 hrs No Action lorazepam 0.5 mg tablet 0.5 mg PO BID ferrous sulfate [FeroSul] 325 mg (65 mg iron) Tablet 325 mg PO LUNCH Qty: 30 0RF melatonin 10 mg capsule 10 mg PO QHS 30 Days Qty: 0 0RF ascorbic acid (vitamin C) [C-500] 500 mg tablet 500 mg PO DAILY b12 gummy 1 gummy PO DAILY triamcinolone acetonide 0.1 % cream 1 applic topical TID PRN PRN (Reason: affected area) nystatin [Nyamyc] 100,000 unit/gram powder 1 applic topical BID guaifenesin [Mucinex] 600 mg Tablet Extended Release 12hr 600 mg PO BID Qty: 10 0RF sulfamethoxazole-trimethoprim 800-160 mg Tablet 1 tab PO BIDCM Qty: 7 0RF furosemide 40 mg tablet 40 mg PO DAILY Qty: 30 0RF warfarin 1 mg tablet 1 mg PO .COMPLEX Qty: 180 3RF Protocol: Dose Management Condition: Sunday Dose/Route: 6 mg Instruction: 1 x 1 mg tablet, 1 x 5 mg tablet Condition: Sunday Dose/Route: 6 mg Instruction: 1 x 1 mg tablet, 1 x 5 mg tablet Condition: Sunday Dose/Route: 6 mg Instruction: 1 x 1 mg tablet, 1 x 5 mg tablet Condition: Sunday Dose/Route: 6 mg Instruction: 1 x 1 mg tablet, 1 x 5 mg tablet Condition: Dose/Route: 6 mg Instruction: 1 x 1 mg tablet, 1 x 5 mg tablet Condition: Sunday Dose/Route: 7 mg Instruction: 2 x 1 mg tablets, 1 x 5 mg tablet Condition: Sunday Dose/Route: 6 mg Instruction: 1 x 1 mg tablet, 1 x 5 mg tablet Protocol Text: Adjustment Start Date: Sunday09/26/24 INR Value: 2.2 INR Date: 09/26/24 Recheck Date: 10/10/24 Rx Instructions: daily with a 5mg tablet to = 6 mg: dose changes often metoprolol tartrate 50 mg tablet 50 mg PO BID Qty: 180 3RF Rx Instructions: TAKE 1 TABLET BY MOUTH TWICE A DAY duloxetine 60 mg capsule,delayed release(DR/EC) 60 mg PO DAILY Qty: 90 0RF warfarin 5 mg tablet 5 mg PO DAILY Qty: 90 3RF Protocol: Dose Management Condition: Sunday Dose/Route: 6 mg Instruction: 1 x 1 mg tablet, 1 x 5 mg tablet Condition: Sunday Dose/Route: 6 mg Instruction: 1 x 1 mg tablet, 1 x 5 mg tablet Condition: Sunday Dose/Route: 6 mg Instruction: 1 x 1 mg tablet, 1 x 5 mg tablet Condition: Sunday Dose/Route: 6 mg Instruction: 1 x 1 mg tablet, 1 x 5 mg tablet Condition: Dose/Route: 6 mg Instruction: 1 x 1 mg tablet, 1 x 5 mg tablet Condition: Sunday Dose/Route: 7 mg Instruction: 2 x 1 mg tablets, 1 x 5 mg tablet Condition: Sunday Dose/Route: 6 mg Instruction: 1 x 1 mg tablet, 1 x 5 mg tablet Protocol Text: Adjustment Start Date: Sunday09/26/24 INR Value: 2.2 INR Date: 09/26/24 Recheck Date: 10/10/24 Primary Care Provider: Donaldo Larson Referrals: Donaldo Larson DO [Primary Care Provider] - Activity Restrictions/Additional Instructions: X-ray showed no broken bones. Ice and take Tylenol every 6 hours as needed. If pain is not improving in 1 week follow-up with your primary care doctor. Print Language: Scottish Disposition Disposition: Home, Self Care Discharge Date/Time: 10/11/24 22:06
[2024-10-11] MEDS: oxyCODONE 5 MG Tablet PO (21:22)
[2024-10-11] MEDS: Ondansetron ODT 4 MG Tablet PO (21:22)
--- NOTE | 2024-10-11 21:30 | RAD_ITS ---
PROCEDURE: SHOULDER MIN 2 VIEWS 10/11/2024 REASON FOR EXAM: PAIN TECHNIQUE: Three views of the left shoulder. COMPARISON: None FINDINGS: No acute fracture or dislocation. Moderate atherosclerotic calcification of the glenohumeral and acromioclavicular joints. Acromiohumeral interval is maintained. Imaged lung cuevas are clear RAD/Shoulder min 2 Views IMPRESSION: No acute findings. Moderate osteoarthritis. Reading Location: [facility]
[2024-10-11 22:04] VITALS: BP 115/68; PULSE 71; RESP 18; TEMP 36.4; O2SAT 100
== END 2024-10-11 22:06 | disposition home or self-care (01) ==
PROVIDERS: Emergency Provider Emergency Medicine; PCP Family Medicine; Visit Provider Emergency Medicine
DX: S40.012A Contusion of left shoulder, initial encounter (principal); I48.91 Unspecified atrial fibrillation; E78.00 Pure hypercholesterolemia, unspecified; S70.02XA Contusion of left hip, initial encounter; I10 Essential (primary) hypertension; Z79.01 Long term (current) use of anticoagulants; Z87.891 Personal history of nicotine dependence; W01.10XA Fall on same level from slipping, tripping and stumbling with subsequent striking against unspecified object, initial encounter; Y93.H2 Activity, gardening and landscaping; Z95.2 Presence of prosthetic heart valve; F41.9 Anxiety disorder, unspecified; Z79.899 Other long term (current) drug therapy
CPT/HCPCS: 73030; 73502; 99282

== ENCOUNTER → 2024-11-10 | Outpatient (CLI) | payer MEDICARE, OTHER, SELFPAY ==
--- NOTE | 2024-11-10 08:45 | RAD_ITS ---
PROCEDURE: CHEST PA AND LATERAL 11/10/2024 REASON FOR EXAM: SHORTNESS OF BREATH, HX RT PLEURAL EFFUSION TECHNIQUE: Frontal and lateral views of the chest. COMPARISON: Portable chest, 08/23/2024. FINDINGS: There are large bilateral pleural effusions. There is bibasilar atelectasis. There is cardiomegaly and pulmonary venous hypertension without congestive heart failure. Status post CABG surgery. Status post aortic valve replacement. There is calcific vascular disease of the thoracic aorta. Status post median sternotomy. There is multilevel degenerative disc disease of the thoracic spine. RAD/Chest PA and Lateral IMPRESSION: 1. Cardiomegaly and pulmonary venous hypertension without congestive heart clau lure. 2. Large bilateral pleural effusions with bibasilar atelectasis. 3. There is no significant change. Reading Location: [place] [id number]
[2024-11-10 10:06] LABS: Absolute Lymphocyte Count 0.75 X10^3/uL (0.83-4.51); Absolute Neutrophil Count 3.7 X10^3/uL (2.0-7.7); Basophil# 0.07 X10^3/uL; Basophil% 1.2 % (0-1); Eosinophil# 0.32 X10^3/uL; Eosinophils% 5.5 % (0-5); Hematocrit 37.3 % (40-54); Hemoglobin 12.4 g/dL (13.0-16.5); Lymphocyte # 0.75 X10^3/ul (0.83-4.51); Lymphocyte % 12.8 % (19-41); Mean Corp Hgb Conc 33.2 g/dL (32-36); Mean Corpuscular Hgb 32.9 pg (27.0-32.0); Mean Corpuscular Volume 98.9 fL (80-94); Mean Platelet Vol. 10.5 fl (6.2-12.0); Monocyte# 0.99 X10^3/uL; NRBC Flagged by Analyzer 0 % (0-5); Neutrophil % 63.3 % (47-70); Platelet Count 197 K/mm3 (150-450); RBC Distribution Width CV 14.1 % (11.6-14.6); RBC Distribution Width SD 51.7 fl (35.1-43.9); Red Blood Count 3.77 M/mm3 (4.6-6.2); White Blood Count 5.8 K/mm3 (4.4-11.0)
[2024-11-10 10:13] LABS: International Normalized Ratio 3.7; Prothrombin Time (Protime)PT. 37.3 SECONDS (11.7-14.9)
[2024-11-10 10:40] LABS: AST(SGOT) 49 U/L (<=37); Alanine Aminotransfer ALT/SGPT 26 U/L (<=46); Albumin, Serum 3.9 g/dL (3.4-4.8); Alkaline Phosphatase 200 U/L (40-129); Anion Gap 9 (5-15); BUN 23 mg/dL (4-19); BUN/Creat Ratio 20.4 RATIO (10-20); Calcium,Total 9.2 mg/dL (7.6-11.0); Carbon Dioxide 28.4 mmol/L (21.0-32.0); Chloride 102 mmol/L (98-108); Creatinine, Serum 1.12 mg/dL (0.70-1.20); EST Glomerular Filtration Rate 67 (>60); Glucose 110 mg/dL (70-99); Potassium 4.2 mmol/L (3.3-5.1); Pro- Brain NATRIURETIC PEPTIDE 2020 pg/mL (<=1800); Protein, Total 7.9 g/dL (5.9-8.4); Sodium Level 139 mmol/L (133-145); Total Bilirubin 0.67 mg/dL (0.00-1.30)
== END | disposition home or self-care (01) ==
LOC: RAD 08:44
PROVIDERS: PCP Family Medicine; Referring Provider Nurse Practitioner Family; Visit Provider Nurse Practitioner Family
DX: Z87.09 Personal history of other diseases of the respiratory system (principal); I48.0 Paroxysmal atrial fibrillation; Z79.01 Long term (current) use of anticoagulants; R06.02 Shortness of breath; Z51.81 Encounter for therapeutic drug level monitoring; Z79.899 Other long term (current) drug therapy
CPT/HCPCS: 36415; 71046; 80053; 83880; 85025; 85610

== ENCOUNTER → 2024-12-16 | Outpatient (CLI) | payer MEDICARE, OTHER, SELFPAY ==
--- NOTE | 2024-12-16 12:49 | ECHOD_ITS ---
Reason For Study Reason For Study: Dyspnea/SOB Procedure This was a 2D Doppler, Color Flow transthoracic echocardiogram. Exam performed in department. Left Ventricle Normal LV size. Left ventricular systolic function is normal. The left ventricular ejection fraction is 55 %. No regional wall motion abnormalities noted. Right Ventricle Normal RV size. Normal systolic function. Atria The left atrium is moderately enlarged. The right atrium is moderately enlarged. Mitral Valve Mild mitral valve prolapse. Mild (1+) eccentric mitral valve insufficiency. Tricuspid Valve Normal tricuspid valve. Mild to moderate (1-2+) tricuspid valve insufficiency. Pulmonary artery systolic pressure is 53 mmHg. Aortic Valve Peak aortic valve gradient 9 mmHg. Mean aortic valve gradient 5 mmHg. Stable appearing mechanical aortic valve apparatus. Pulmonic Valve Mild stenosis of the pulmonic valve. Normal prosthetic pulmonic valve. Great Vessels Normal aortic root. The pulmonary artery is normal size. Inferior vena cava collapse with respiration. Pericardium/Pleural No pericardial effusion. MMode/2D Measurements & Calculations LVIDd: 4.8 cm IVSd: 0.98 cm LVOT diam: 2.2 cm LVIDs: 3.7 cm LVPWd: 0.94 cm LVOT area: 3.8 cm2 RVDd: 5.5 cm FS: 24.3 % Ao root diam: 2.9 cm LAV(MOD-bp): 82.7 ml RVOT diam: 2.0 cm LAV(MOD-bp) Indexed: 36.5 ml/m2 LAV(MOD-sp2): 70.7 ml LAV(MOD-sp4): 84.5 ml SV(MOD-sp4): 40.3 ml SV(sp4-el): 40.8 ml LVAd ap4: 26.7 cm2 LVLd ap4: 7.8 cm SI(MOD-sp4): 17.8 ml/m2 EDV(MOD-sp4): 78.2 ml EDV(sp4-el): 77.9 ml LVAs ap4: 16.6 cm2 LVLs ap4: 6.3 cm ESV(MOD-sp4): 37.9 ml ESV(sp4-el): 37.2 ml EF(MOD-sp4): 51.6 % EF(sp4-el): 52.3 % LA A4 area: 25.4 cm2 LA dimension(2D): 5.5 cm RA A4 area: 25.0 cm2 TAPSE: 1.4 cm Doppler Measurements & Calculations MV E max darrick: 69.9 cm/sec Lat Peak E' Darrick: 15.5 cm/sec Med Peak E' Darrick: 7.9 cm/sec E/E' lat: 4.5 E/E' med: 8.8 Ao V2 max: 164.2 cm/sec LV V1 max: 132.4 cm/sec SV(LVOT): 133.0 ml Ao max P.4 mmHg LV V1 max P.0 mmHg Ao V2 mean: 110.2 cm/sec LV V1 mean P.3 mmHg Ao mean P.3 mmHg LV V1 mean: 111.4 cm/sec Ao V2 VTI: 30.8 cm LV V1 VTI: 34.8 cm AV (velocity ratio): 1.1 SEVERIANO(I,D): 4.3 cm2 SEVERIANO(V,D): 3.1 cm2 PA V2 max: 205.8 cm/sec PI end-d darrick: 62.2 cm/sec SV(RVOT): 94.1 ml PA V2 mean: 147.9 cm/sec PA mean PG (full): 7.1 mmHg TR max darrick: 342.9 cm/sec Qp/Qs: 1.0/1.4 TR max P.0 mmHg ECHO/Echo Complete Interpretation Summary Normal LV size. Left ventricular systolic function is normal. The left ventricular ejection fraction is 55 %. Normal prosthetic pulmonic valve. Stable appearing mechanical aortic valve apparatus. Mean aortic valve gradient 5 mmHg. Pulmonary artery systolic pressure is 53 mmHg. Ordering Physician: Foster Austin Referring Physician: Donaldo Larson Performed By: Haley Austin, RDCS, RVT
--- NOTE | 2024-12-16 12:49 | RAD_ITS ---
EXAM: XR Chest, 2 Views CLINICAL INDICATION: RE-EVALUTE PLEURAL EFFUSION AFTER LASIX TECHNIQUE: Frontal and lateral views of the chest. COMPARISON: XR Chest dated 11/10/2024 FINDINGS: LUNGS AND PLEURAL SPACES: Small bilateral pleural effusions, decreased since the prior exam. No consolidation. No pneumothorax. HEART: Unremarkable. No cardiomegaly. MEDIASTINUM: Unremarkable. Normal mediastinal contour. BONES/JOINTS: Unremarkable. No acute fracture. RAD/Chest PA and Lateral IMPRESSION: Small bilateral pleural effusions, decreased since the prior exam. Reading Location: [id number]
--- NOTE | 2024-12-16 12:49 | RAD_ITS ---
EXAM: XR Chest, 2 Views CLINICAL INDICATION: RE-EVALUTE PLEURAL EFFUSION AFTER LASIX TECHNIQUE: Frontal and lateral views of the chest. COMPARISON: XR Chest dated 11/10/2024 FINDINGS: LUNGS AND PLEURAL SPACES: Small bilateral pleural effusions, decreased since the prior exam. No consolidation. No pneumothorax. HEART: Unremarkable. No cardiomegaly. MEDIASTINUM: Unremarkable. Normal mediastinal contour. BONES/JOINTS: Unremarkable. No acute fracture. RAD/Chest PA and Lateral IMPRESSION: Small bilateral pleural effusions, decreased since the prior exam. Reading Location: [id number]
[2024-12-16 15:01] LABS: Prothrombin Time (Protime)PT. 29.9 SECONDS (11.7-14.9)
[2024-12-16 15:15] LABS: AST(SGOT) 52 U/L (<=37); Alanine Aminotransfer ALT/SGPT 25 U/L (<=46); Albumin, Serum 4.1 g/dL (3.4-4.8); Alkaline Phosphatase 148 U/L (40-129); Anion Gap 11 (5-15); BUN 28 mg/dL (4-19); BUN/Creat Ratio 21.9 RATIO (10-20); Calcium,Total 9.7 mg/dL (7.6-11.0); Carbon Dioxide 27.2 mmol/L (21.0-32.0); Chloride 99 mmol/L (98-108); Globulin 4.5 g/dL (2.2-4.2); Glucose 84 mg/dL (70-99); Potassium 4.3 mmol/L (3.3-5.1)
--- OUTSIDE RECORDS SUMMARY | 2024-12-16 21:26 | XMS RPT_ITS | CCD ---
Author Organization [facility] Care Team Providers Care Commissions Manager Name Role Phone Kalie RN, Renee Krishnamurthy Unavailable [phone] Roula, IVY, Lori Veloz Unavailable Unavailabl e Kalie RN, Renee Krishnamurthy Unavailable [phone] Kalie RN, Renee Krishnamurthy Unavailable [phone] Kalie RN, Renee Krishnamurthy Unavailable [phone] Eugenie Jasmine Unavailable Unavailable VEE Wylie, Renee Veloz Unavailable [phone] Ghulam TORRES, Jovana Tierney Unavailable Mrakus Tran MD Unavailable Kalie RN, Renee Krishnamurthy Unavailable [phone] Kalie RN, Renee Krishnamurthy Unavailable [phone] PARANJAPE, RYAN Unavailable Unavailable PARANJAPE, RYAN Unavailable Unavailable NO REFERRING DR Unavailable Unavailable Kalie RN, Renee Krishnamurthy Unavailable [phone] Kalie RN, Renee Krishnamurthy Unavailable [phone] Kalie RN, Renee Krishnamurthy Unavailable [phone] Maryanne HAYNES, Prudence Dent Unavailable Unavailable Maryanne HAYNES, Prudence Dent Unavailable Unavailable Kalie RN, Renee Krishnamurthy Unavailable [phone] LUIS GLASER Referring Unavailable PROVIDER, UNKNOWN Admitting Unavailable PROVIDER, UNKNOWN Attending Unavailable KULDEEP PAINTING Admitting Unavailable LUIS GLASER Referring Unavailable PROVIDER, UNKNOWN Attending Unavailable KULDEEP PAINTING Admitting Unavailable LUIS GLASER Referring Unavailable PROVIDER, UNKNOWN Attending Unavailable PROVIDER, UNKNOWN Attending Unavailable KULDEEP PAINTING Admitting Unavailable LUIS GLASER Referring Unavailable PROVIDER, UNKNOWN Attending Unavailable PROVIDER, UNKNOWN Admitting Unavailable LUIS GLASER Referring Unavailable LOUIE BURNS Primary Care Unavailable EDUARDO ARAUZ Admitting Unavailable XU WINN Attending Unavailable CONSULT, IP REHABILITATION PSYCHOLOGIST Consulti ng Unavailable LUIS DYER Attending Unavailable KULDEEP PAINTING Admitting Unavailable LUIS GLASER Referring Unavailable CONSULT, IP CARDIOLOGY ELECTROPHYSIOLOGY (EP) Co nsulting Unavailable REQUEST, IP PHYSICAL THERAPY SERVICE Consulting Unavailable REQUEST, IP OCCUPATIONAL THERAPY SERVICE Consult ing Unavailable CONSULT, IP PM Consulting Unavailable CONSULT, IP CARDIOLOGY Consulting Unavailab le REQUEST, IP SYSTEM CONSULTANT SERVICE Consulting Unavaila ble PROVIDER, UNKNOWN Attending Unavailable PROVIDER, UNKNOWN Admitting Unavailable LUIS DYER Referring Unavailable PROVIDER, UNKNOWN Attending Unavailable PROVIDER, UNKNOWN Admitting Unavailable LOUIE BURNS Primary Care Unavailable PROVIDER, UNKNOWN Admitting Unavailable PROVIDER, UNKNOWN Attending Unavailable LOUIE BURNS Primary Care Unavailable NIDIA HERNANDEZ Attending Unavailable NIDIA HERNANDEZ Admitting Unavailable PROVIDER, UNKNOWN Attending Unavailable KULDEEP PAINTING Admitting Unavailable JAILYNLUIS Referring Unavailable JAILYN, LUIS Referring Unavailable PAINTING, KULDEEP Admitting Unavailable PROVIDER, UNKNOWN Attending Unavailable PROVIDER, UNKNOWN Attending Unavailable PROVIDER, UNKNOWN Admitting Unavailable LUIS GLASER Referring Unavailable KULDEEP PAINTING Admitting Unavailable PROVIDER, UNKNOWN Attending Unavailable KULDEEP PAINTING Admitting Unavailable JAILYNMICHALUIS Referring Unavailable PROVIDER, UNKNOWN Attending Unavailable Louie Burns DO Primary Care Provider Yon TORRES, Nidia Unavailable Michael Maldonado MD Unavailable Alyssa Berger [facility], Jeff Tierney Unavailable Un available Heydi TORRES, PhD, Kelvin Krishnamurthy Unavailable Asha Bundy MD Unavailable LOUIE BURNS Primary Care Unavailable SELF, SELF Referring Unavailable DELFINA CHAPMAN Attending Unavailable ASHA BUNDY Attending Unavailable LOUIE BURNS Primary Care Unavailable SELF, SELF Referring Unavailable ASHA BUNDY Referring Unavailable ASHA BUNDY Attending Unavailable LOUIE BURNS Primary Care Unavailable LOUIE BURNS Primary Care Unavailable WILEY COVINGTON Referring Unavailable WILEY COVINGTON Attending Unavailable Louie Burns Referring Unavailable Louie Burns Attending Unavailable Louie Burns Primary Care Unavailable Tex Keys Attending Unavailable Louie Burns Primary Care Unavailable Tex Keys Referring Unavailable Chadd, Zhang Admitting Unavailable Cedrick Willingham Consulting Unavailable Grant, Louie Primary Care Unavailable Jose Ayon Attending Unavailable Chadd, Zhang Consulting Unavailable Sergey Palm Consulting Unavailable Resendiz, Tom Consulting Unavailable Jose De Jesus Betts Consulting Unavailable Jose Siddiqi Consulting Unavailable Matheis, Edesthela Consulting Unavailable Kurtis, Ja Consulting Unavailable Habtegebriel, Kanchan Consulting Unavailab le Dand, Waylon Consulting Unavailable Urena, Eduardo Consulting Unavailable Ruben, Suze Consulting Unavailable Aljundi, Lamia Consulting Unavailable Vincent, Watson Consulting Unavailable Irukulla, David Consulting Unavailable Keon, Denny Consulting Unavailable Paul, Zuhair Consulting Unavailable Андрей Ndiaye Consulting Unavailable Bernardo, Chantale Consulting Unavailable Jose Ayon Consulting Unavailable Kuldeep Austin Attending Unavailable Louie Burns Primary Care Unavailable Louie Burns Referring Unavailable Louie Burns Attending Unavailable GrantLouie Primary Care Unavailable Cedrick Willingham Attending Unavailable Grant, Louie Primary Care Unavailable Chadd, Zhang Admitting Unavailable Cedrick Willingham Consulting Unavailable Louie Kincaid Attending Unavailable Grant, Louie Primary Care Unavailable Chadd, Zhang Consulting Unavailable Sergey Palm Consulting Unavailable Resendiz, Tom Consulting Unavailable Jose De Jesus Betts Consulting Unavailable Jose Siddiqi Consulting Unavailable Matheis, Edward Consulting Unavailable Kurtis, Ja Consulting Unavailable Habtegebriel, Kanchan Consulting Unavailab le Dand, Waylon Consulting Unavailable Urena, Eduardo Consulting Unavailable Ruben, Suze Consulting Unavailable Aljundi, Lamia Consulting Unavailable Vincent, Watson Consulting Unavailable Irukulla, David Consulting Unavailable Keon, Denny Consulting Unavailable Paul, Zuhair Consulting Unavailable SenthilАндрей bianchi Consulting Unavailable Chang, Chantale Consulting Unavailable Jose Ayon Consulting Unavailable Krys Bull Consulting Unavailable Krys Bull Admitting Unavailable GrantLouie harrington Primary Care Unavailable Braden Coto Attending Unavailable Chadd, Zhang Consulting Unavailable Louie Kincaid Attending Unavailable Louie Kincaid Consulting Unavailable Brooklyn Mercado Attending Unavailable Amor Carmona Attending Unavailable GrantLouie Primary Care Unavailable Jeancarlos Ritter [facility] Roof, Kuldeep H Referring Unavailable Roof, Kuldeep H Attending Unavailable Grant, Louie Primary Care Unavailable Cedrick Willingham Attending Unavailable Roof, Kuldeep H Referring Unavailable Roof, Kuldeep H Attending Unavailable Grant, Louie Primary Care Unavailable Grant, Louie Primary Care Unavailable Caleb Billingsley Attending Unavailable Grant, Louie Attending Unavailable Grant, Louie Primary Care Unavailable White, Krys L Consulting Unavailable WhiteKrys L Admitting Unavailable Joppamol, Braden Attending Unavailable Grant, Louie Primary Care Unavailable Chadd, Zhang Consulting Unavailable Joppamol, Braden Consulting Unavailable Grant, Louie Referring Unavailable Michael Maldonado Attending Unavailable Grant, Louie Primary Care Unavailable Schwmarlo, Braden Attending Unavailable Grant, Louie Primary Care Unavailable Grant, Louie Primary Care Unavailable Abdulaziz, Peteadeshonna Attending Unavailabl e Nagasaturninothi, Nagapradee Attending Unavailabl e Grant, Louie Primary Care Unavailable Grant, Louie Referring Unavailable Roof, Kuldeep H Attending Unavailable Grant, Louie Primary Care Unavailable Grant, Louie Referring Unavailable Grant, Louie Primary Care Unavailable Tex Keys Attending Unavailable Chantale Chang Referring Unavailable Jose De Jesus Betts Attending Unavailable Chantale Chang Attending Unavailable Chadd, Zhang Attending Unavailable Chadd, Zhang Attending Unavailable Krys Bull Attending Unavailable Roof, Kuldeep H Referring Unavailable Roof, Kuldeep H Attending Unavailable Grant, Louie Primary Care Unavailable Allergies Allergy Classification Reported Allergen(s) Allergy Type Date of Onset Reaction(s) Facility (18 sources) levoFLOXacin; Translations: [levofloxacin] drug allergy 3 passed out [facility] Work Phone: (4 sources) ALPRAZolam; Translations: [ALPRAZOLAM] Drug Allergy 1 [facility] (1 source) [facility]NYL Drug [facility] f[facility] 5 [facility] Medications Current Medications Medication Drug Class(es) Dates Sig (Normalized) Sig (Original) alteplase 2 MG Recon Soln (5 sources) Start: 06-15-2023 alteplase 2 MG Recon Soln 2 mg by Intracatheter route once as needed for Catheter Clearance (For an occluded line) for up to 1 dose. 1 Each 06/15/2023 Active Start: 06-15-2023 alteplase 2 MG Recon Soln 2 mg by Intracatheter route once as needed for Catheter Clearance (For an occluded line) for up to 1 dose. 1 Each 0 06/15/2023 Active Start: 06-15-2023 alteplase 2 MG Recon Soln 2 mg by Intracatheter route once as needed for Catheter Clearance (For an occluded line) for up to 1 dose. 1 Each 0 06/15/2023 ceFAZolin 1000 mg injection (6 sources) Cephalosporin Antibacterial Start: 06-15-2023 End: 08-03-2023 ceFAZolin injection 6 g, every 24 hours as a continuous infusion. *diluent and final concentration at discretion of receiving pharmacy* 46 days worth of supplies 276 Each 0 06/15/2023 08/03/2023 Active Start: 06-07-2023 End: 06-07-2023 take 2 g intravenously every eight hours ceFAZolin (ANCEF) 2 g in dextrose 100 mL premix IVPB cephalexin 500 mg oral capsule (1 source) Cephalosporin Antibacterial Start: 08-03-2023 End: 12-01-2023 take 2 capsules by mouth three times daily cephALEXin 500 MG capsule Indications: Acute bacterial endocarditis , Encounter for long-term (current) use of antibiotics Take 2 capsules by mouth 3 (three) times a day. 180 capsule 3 08/03/2023 12/01/2023 Active DULoxetine 60 mg delayed release oral capsule (20 sources) Serotonin and Norepinephrine Reuptake Inhibitor Start: 05-16-2023 End: 06-19-2023 take 1 capsule by mouth once daily DULoxetine [address] Particles capsule DR Take 1 capsule by mouth daily. 05/16/2023 Active Start: 08-07-2016 End: 09-06-2016 CYMBALTA 30 MG CPEP one po q 24 H DULOXETINE HCL [id number] Jovana Parmar MD ferrous sulfate 325 mg delayed release oral tablet (5 sources) take 1 tablet by mouth once daily ferrous sulfate 325 (65 Fe) MG Tab DR tablet DR Take 1 tablet by mouth daily. Active Magnesium Oxide (6 sources) Start: 06-08-2023 End: 06-08-2023 magnesium oxide (MAG-OX) tablet 400 mg Start: 06-06-2023 End: 06-06-2023 magnesium oxide (MAG-OX) tab let Start: 06-06-2023 End: 06-19-2023 magnesium oxide (MAG-OX) tab let 800 mg Start: 06-06-2023 magnesium oxid e (MAG-OX) tablet 800 mg metoprolol tartrate 50 mg oral tablet (20 sources) beta-Adrenergic Edith Start: 05-14-2023 End: 06-19-2023 take 1 tablet by mouth twice daily Metoprolol 50 MG tab regular release Take 1 tablet by mouth 2 times daily. 05/14/2023 Active Start: 09-20-2010 take 1 tablet by grisel th twice daily LOPRESSOR 50 MG TABS One tablet by mouth twice daily METOPROLOL TARTRATE [id number] Markus Tran MD Potassium Chloride (4 sources) Start: 06-08-2023 End: 06-08-2023 Potassium chloride (K-DUR) t ablet ER 40 mEq Start: 06-06-2023 End: 06-19-2023 Potassium chloride (K-DUR) t ablet ER 40-60 mEq Start: 06-06-2023 Potassium chlo ride (K-DUR) tablet ER 40-60 mEq predniSONE 5 mg oral tablet (10 sources) Start: 06-19-2023 End: 07-07-2023 take 3 tablets by mouth once daily, then take 2 tablets by mouth once daily, then take 1 tablet by mouth once daily predniSONE 5 MG tablet Take 3 tablets by mouth daily for 4 days, THEN 2 tablets daily for 7 days, THEN 1 tablet daily for 7 days. 33 tablet 0 06/19/2023 07/07/2023 Active Start: 06-16-2023 End: 06-19-2023 predniSONE (DELTASONE) table t 15 mg Start: 06-16-2023 predniSONE (DE LTASONE) tablet 15 mg Start: 05-04-2023 End: 06-18-2023 take 20 mg by mouth once daily 20 mg, Oral, DAILY, Fir st dose on Lisa 06/07/23 at 0900, Until Discontinued tamsulosin hydrochloride 0.4 mg oral capsule (7 sources) alpha-Adrenergic Edith Start: 06-07-2023 End: 06-19-2023 take 1 capsule by mouth once daily Tamsulosin HCl 0.4 MG capsule Take 1 capsule by mouth daily. 30 capsule 1 06/19/2023 Active Completed/Discontinued Medications Medication Drug Class(es) Dates Sig (Normalized) Sig (Original) acetaminophen 325 mg oral tablet (19 sources) Start: 06-06-2023 End: 06-19-2023 take 1 tablet by mouth every six hours as needed 650 mg, Oral, EVERY 6 HOURS NEEDED, Starting on Sun06/06/23 at 2232, Until Sun06/19/23 at 1513, Mild Pain, Oral temp > 100.4 F Maximum dose of acetaminophen is 4000 mg from all sources in 24 hours. ACETAMINOPHEN ER 650 MG CR-TABS q 6 hrs prn ACETAMINOPHEN [id number] Keesha José LPN ALPRAZolam 0.5 mg oral tablet (20 sources) Benzodiazepine Start: 11-07-2016 XANAX 0.5 MG T ABS as needed ALPRAZOLAM [id number] Renee Wylie PA-C End: 08-21-2016 ALPRAZOLAM 0.5 MG TABS three times a day prn ALPRAZOLAM [id number] Keesha José LPN amiodarone hydrochloride 200 mg oral tablet (2 sources) Antiarrhythmic Start: 06-07-2023 End: 06-13-2023 AMIOdarone (PACERONE) tablet 200 mg 12 hr amoxicillin 1000 mg / clavulanate 62.5 mg extended release oral tablet (20 sources) Penicillin-class Antibacterial Start: 11-08-2016 take 1 tablet by mouth twice daily AUGMENTIN XR 1000-62.5 MG [id number] One tablet by mouth twice daily AMOXICILLIN-POT CLAVULANATE [id number] Renee Wylie PA-C Start: 11-08-2016 take 1 tablet by grisel th twice daily AUGMENTIN XR 1000-62.5 MG [id number] One tablet by mouth twice daily AMOXICILLIN-POT CLAVULANATE [id number] Renee Wylie PA-C Start: 11-08-2016 take 1 tablet by grisel th twice daily AUGMENTIN XR 1000-62.5 MG [id number] One tablet by mouth twice daily AMOXICILLIN-POT CLAVULANATE [id number] eRnee Wylie PA-C Start: 08-07-2016 End: 10-06-2016 take 1 tablet by mouth once AMOXICILLIN-POT CLAVULANAT E 875-125 MG TABS one po q12 AMOXICILLIN-POT CLAVULANATE [id number] Jovana Parmar MD aspirin 81 mg delayed release oral tablet (20 sources) Nonsteroidal Anti-inflammatory Drug Start: 09-20-2010 End: 08-20-2013 take 1 tablet by mouth once daily ECOTRIN LOW STRENGTH 81 MG TBEC One tablet by mouth daily ASPIRIN [id number] Markus Tran MD Start: 09-20-2010 End: 08-20-2013 take 1 tablet by mouth once daily ECOTRIN LOW STRENGTH 81 MG TBEC One tablet by mouth daily ASPIRIN [id number] Markus Tran MD benzocaine 140 mg/ml / butamben 20 mg/ml / tetracaine 20 mg/ml mucosal spray (1 source) Chio Local Anesthetic, Standardized Chemical Allergen Start: 08-10-2023 End: 08-10-2023 take 1 spray(s) by mouth once 1 spray, Oral, ADMINISTER DIRECTED, Starting on Sun08/10/23 at 1132, Until Sun08/10/23 at 1331, Mild Pain, FOR FER PROCEDURE ONLY, Administer one time as directed by physician. FOR FER PROCEDURE ONLY, Intra-op/Intra-Proc ceFAZolin (ANCEF) 3 g in Sodium chloride 0.9%, with overfill 290 mL IV infusion (2 sources) Start: 06-07-2023 End: 06-19-2023 take 3 g intravenously every twelve hours ceFAZolin (ANCEF) 3 g in Sodium chloride 0.9%, with overfill 290 mL IV infusion Start: 06-07-2023 take 3 g intravenous ly every twelve hours ceFAZolin (ANCEF) 3 g in Sodium chloride 0.9%, with overfill 290 mL IV infusion citalopram 20 mg oral tablet (14 sources) Serotonin Reuptake Inhibitor Start: 11-08-2016 take 1 tablet by mouth once daily CELEXA 20 MG TABS One tablet by mouth daily CITALOPRAM HYDROBROMIDE [id number] Renee Wylie PA-C ertapenem 1000 mg injection (20 sources) Penem Antibacterial End: 08-07-2016 INVANZ 1 GM SOLR q 24 hrs ERTAPENEM SODIUM [id number] Finesse Stover Sisi MA End: 08-07-2016 INVANZ 1 GM SOLR q 24 hrs 20 18/08/05 ERTAPENEM SODIUM [id number] Finesse S Sisi MA INVANZ 1 GM SOLR q 24 hrs ERTAPENEM SODIUM [id number] Keesha José LPN INVANZ 1 GM SOLR q 24 hrs ERTAPENEM SODIUM [id number] Keesha José LPN End: 08-07-2016 INVANZ 1 GM SOLR q 24 hrs 20 18/08/05 ERTAPENEM SODIUM [id number] Finesse Stover Sisi MA Furosemide (4 sources) Loop Diuretic Start: 06-10-2023 End: 06-11-2023 furOSEmide (LASIX) injection 40 mg Start: 06-09-2023 End: 06-09-2023 furOSEmide (LASIX) injection 40 mg Gentamicin (GARAMYCIN) 60 mg in Sodium chloride 0.9%, with overfill 111.5 mL (total volume) IVPB (4 sources) Start: 06-11-2023 End: 06-19-2023 take 60 mg intravenously every twelve hours Gentamicin (GARAMYCIN) 60 mg in Sodium chloride 0.9%, with overfill 111.5 mL (total volume) IVPB Start: 06-08-2023 End: 06-10-2023 take 60 mg intravenously every eight hours Gentamicin (GARAMYCIN) 60 mg in Sodium chloride 0.9%, with overfill 111.5 mL (total volume) IVPB Gentamicin (GARAMYCIN) 80 mg in Sodium chloride 0.9%, with overfill 112 mL (total volume) IVPB (2 sources) Start: 06-07-2023 End: 06-08-2023 take 80 mg intravenously every eight hours Gentamicin (GARAMYCIN) 80 mg in Sodium chloride 0.9%, with overfill 112 mL (total volume) IVPB 250 ml heparin sodium, porcine 100 unt/ml injection (2 sources) Unfractionated Heparin, Anti-coagulant Start: 06-07-2023 End: 06-18-2023 Heparin 25,000 units in dextrose 5% 250 mL premix infusion lidocaine 0.05 mg/mg topical ointment (3 sources) Antiarrhythmic, Amide Local Anesthetic Start: 08-10-2023 End: 08-10-2023 1 Application, Topical, ADMINISTER DIRECTED, Starting on Sun08/10/23 at 1132, Until Sun08/10/23 at 1331, FOR FER PROCEDURE ONLY, FOR FER PROCEDURE ONLY Max: 20gm/day. Apply to back of throat., Intra-op/Intra-P princess Start: 06-14-2023 End: 06-14-2023 Lidocaine 1% for PICC (XYLOC SINTIA) 1 % injection SOLN 10-30 mg LORazepam 0.5 mg oral tablet (20 sources) Benzodiazepine Start: 06-06-2023 End: 06-19-2023 LORazepam (ATIVAN) tablet 0.5 mg Start: 02-13-2023 End: 06-15-2023 take 1 tablet by mouth every six hours as needed LORazepam 0.5 MG tablet Take 1 tablet by mouth every 6 hours as needed for Anxiety. 02/13/2023 Active Start: 09-20-2010 End: 08-03-2016 take 1 tablet by mouth twice daily as needed for anxiety LORAZEPAM 0.5 MG TABS One tablet by mouth twice daily as needed for anxiety LORAZEPAM [id number] Louie Burns DO Start: 09-20-2010 take 1 tablet by grisel once daily LORAZEPAM 0.5 MG TABS One tablet by mouth daily LORAZEPAM [id number] Susanne Rios melatonin 3 mg oral tablet (7 sources) Start: 06-06-2023 End: 06-19-2023 take 6 mg by mouth once daily at bedtime as needed 6 mg, Oral, DAILY AT BEDTIME NEEDED, Starting on Sun06/06/23 at 2232, Until Sun06/19/23 at 1513, Insomnia take 1 capsule by mouth at bedti me melatonin capsule Take 1 capsule by mouth at bedtime. Active take 1 capsule by mouth at bedti me melatonin capsule Take 1 capsule by mouth at bedtime. 0 Active take 1 capsule by mouth at bedti me melatonin capsule Take 1 capsule by mouth at bedtime. 0 2 ml midazolam 1 mg/ml injection (1 source) Benzodiazepine Start: 08-10-2023 End: 08-10-2023 10 mg, Intravenous, ADMINISTER DIRECTED, Starting on Sun08/10/23 at 1132, Until Sun08/10/23 at 1331, for procedure sedation, FOR FER PROCEDURE ONLY Administration during procedure as directed by physician. Record cumulative dose on AUG., Intra-op/Intra-Proc Ondansetron 4mg/2ml (ZOFRAN) injection 4 mg (2 sources) Start: 06-06-2023 End: 06-19-2023 take 4 mg intravenously every six hours as needed Ondansetron 4mg/2ml (ZOFRAN) injection 4 mg Start: 06-06-2023 take 4 mg intravenou sly every six hours as needed Ondansetron 4mg/2ml (ZOFRAN) injection 4 mg pantoprazole 40 mg delayed release oral tablet (2 sources) Proton Pump Inhibitor Start: 06-07-2023 End: 06-19-2023 Pantoprazole (PROTONIX) tablet DR 40 mg PARoxetine hydrochloride 40 mg oral tablet (20 sources) Serotonin Reuptake Inhibitor End: 11-08-2016 take 1 tablet by mouth once daily PAROXETINE HCL 40 MG TABS One tablet by mouth daily PAROXETINE HCL [id number] Keesha José LPN pravastatin sodium 20 mg oral tablet (20 sources) HMG-CoA Reductase Inhibitor Start: 01-17-2012 End: 02-23-2014 take 1 tablet by mouth at bedtime PRAVASTATIN SODIUM 20 MG TABS One tablet by mouth at bedtime PRAVASTATIN SODIUM [id number] Abhijeet Kee MD 1000 ml sodium chloride 9 mg/ml injection (3 sources) Start: 08-10-2023 End: 08-10-2023 Intravenous, at 20 mL/hr, CONTINUOUS, Starting on Sun08/10/23 at 1145, Until Sun08/10/23 at 1344, FOR TRANSESOPHAGEAL ECHO ONLY, Intra-op/Intra-Proc Start: 06-06-2023 End: 06-19-2023 Intravenous, at 20 mL/hr, NEEDED, Starting on Sun06/06/23 at 2230, Until Sun06/19/23 at 1513, Carrier Fluid - See Admin. Inst 250mL 0.9NS to be used as carrier fluid for intermittent small volume or piggyback medication administration as needed. Infusion rate of the carrier fluid should be set at 20 mL/hr unless the rate as the intermittent medication is less than 20 mL/hr. For intermittent medications with a rate less than 20 mL/hr set the carrier fluid at that rate of the intermittent or piggy back medication. sulfamethoxazole 800 mg / trimethoprim 160 mg oral tablet (2 sources) Dihydrofolate Reductase Inhibitor Antibacterial, Sulfonamide Antimicrobial Start: 06-15-2023 End: 06-15-2023 Sulfamethoxazole-trimethopri m (BACTRIM DS) 800-160 MG per tablet 1 tablet Warfarin (20 sources) Vitamin K Antagonist Start: 06-17-2023 End: 06-19-2023 warfarin (COUMADIN) tablet 6 .5 mg Start: 06-17-2023 warfarin (COUM CRIS) tablet 6.5 mg Start: 06-16-2023 End: 06-17-2023 Warfarin (COUMADIN) tablet 8 mg Start: 06-15-2023 End: 06-16-2023 warfarin (COUMADIN) tablet 6 .5 mg Start: 06-09-2023 End: 06-17-2023 warfarin (COUMADIN) tablet 6 .5 mg Start: 03-08-2023 End: 06-15-2023 take 1 tablet by mouth once daily warfarin 5 MG tablet Take 1 tablet by mouth daily. Take 6.5 mg daily on Sun, Mon, Tues, Thurs, Fri, and Sat. Take 8 mg on 03/08/2023 Active Start: 03-08-2023 End: 06-18-2023 take 1.5 tablets by mouth once daily Warfarin 1 MG tablet Take 1.5 tablets by mouth daily. Take 6.5 mg daily on Sun, Mon, Tues, Thurs, Fri, and Sat. Take 8 mg on Weds. 0 03/08/2023 06/18/2023 Discontinued (Stop Taking at Discharge) Start: 04-09-2012 COUMADIN 5 MG TABS Take as directed-current dose is 7 mg every X 2 days, 6.5 mg X 5 days per wk WARFARIN SODIUM [id number] Markus Tran MD Start: 09-20-2010 COUMADIN 5 MG TABS Take as directed-current dose is 6 mg daily WARFARIN SODIUM [id number] Renee Wylie PA-C Start: 09-20-2010 COUMADIN 1 MG TABS Take as directed: current dose: take one tablet by mouth daily Sat-Thurs. with a 5mg tablet to equal (6mg) WARFARIN SODIUM [id number] Markus Tran MD Start: 09-20-2010 COUMADIN 1 MG TABS Take as directed WARFARIN SODIUM [id number] Markus Tran MD Problems Active Problems Problem Classification Problem Date Documented Da te Episodic/Chronic Anxiety disorders (20 sources) Anxiety disorder; Translations: [Anxiety] Onset: 5 12-24-2014 Chronic Cardiac dysrhythmias (5 sources) Paroxysmal atrial fibrillation; Translations: [Paroxysmal atrial fibrillation] Onset: 4 06-06-2023 Chronic Congestive heart failure; nonhypertensive (1 source) Heart failure, unspecified; Translations: [Heart failure, unspecified] Onset: 5 Chronic Disorders of lipid metabolism (17 sources) Hyperlipidemia; Translations: [Hyperlipidemia, unspecified] Onset: 1 09-20-2010 Chronic Diverticulosis and diverticulitis (20 sources) Diverticulitis of sigmoid colon; Translations: [Diverticulitis of large intestine without perforation or abscess without bleeding] Onset: 7 08-07-2016 Chronic Heart valve disorders (20 sources) Pulmonic valve regurgitation; Translations: [Aortic valve disorder] Onset: 1 11-05-2015 Chronic Osteoarthritis (17 sources) Degenerative joint disease involving multiple joints; Translations: [Polyosteoarthritis, unspecified] Onset: 5 12-24-2014 Chronic Other diseases of bladder and urethra (17 sources) Intestinovesical fistula; 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] Onset: 7 08-07-2016 Chronic Other diseases of bladder and urethra (5 sources) Urethral stricture; Translations: [Unspecified urethral stricture, male, unspecified site] Onset: 4 06-07-2023 Episodic Other gastrointestinal disorders (5 sources) History of gastrointestinal bleed; Translations: [Personal history of other diseases of the digestive system] Onset: 4 06-06-2023 Episodic Other lower respiratory disease (2 sources) Shortness of breath; Translations: [Shortness of breath] Onset: 5 Episodic Other lower respiratory disease (1 source) Personal history of other diseases of the respiratory system; Translations: [Personal history of other diseases of the respiratory system] Onset: 5 Episodic Other nutritional; endocrine; and metabolic disorders (20 sources) Body mass index (BMI) 31.0-31.9, adult; Translations: [Body mass index (BMI) 30.0-30.9, adult] Onset: 4 11-08-2016 Chronic Other nutritional; endocrine; and metabolic disorders (9 sources) Body mass index (BMI) 30.0-30.9, adult; Translations: [Body mass index (BMI) 30.0-30.9, adult] Onset: 4 05-10-2016 Chronic Ros-; endo-; and myocarditis; cardiomyopathy (except that caused by tuberculosis or sexually transmitted disease) (5 sources) Endocarditis; Translations: [Endocarditis, valve unspecified] Onset: 4 06-06-2023 Chronic Peripheral and visceral atherosclerosis (1 source) Peripheral vascular disease, unspecified; Translations: [Peripheral vascular disease, unspecified] Onset: 5 Chronic Spondylosis; intervertebral disc disorders; other back problems (17 sources) Degeneration of thoracic intervertebral disc; Translations: [Other intervertebral disc degeneration, thoracic region] Onset: 5 12-24-2014 Chronic Superficial injury; contusion (1 source) Contusion of left shoulder, initial encounter; Translations: [Contusion of left shoulder, initial encounter] Onset: 5 Episodic Unclassified (11 sources) Replacement of aortic valve ; Translations: [Presence of prosthetic heart valve] Onset: 6 11-05-2015 Unclassified (6 sources) History of pulmonary valve replacement; Translations: [Presence of prosthetic heart valve] Onset: 6 11-05-2015 Unclassified (1 source) Cough, unspecified; Translations: [Cough, unspecified] Onset: 5 Past or Other Problems Problem Classification Problem Date Documented Date Episodic/Chronic Acute bronchitis (1 source) Acute bronchitis, unspecified; Translations: [Acute bronchitis, unspecified] Onset: 01-19-2024 Episodic Bacterial infection (20 sources) Infection due to Escherichia coli; Translations: [Bacteremia due to Staphylococcus aureus] Onset: 08-07-2016 08-07-2016 Episodic Biliary tract disease (1 source) Calculus of gallbladder without cholecystitis without obstruction; Translations: [CALCU GB W/O CHOLECYST W] Onset: 09-28-2016 Episodic Calculus of urinary tract (1 source) Calculus of kidney; Translations: [CALCULUS OF KIDNEY] Onset: 09-28-2016 Episodic Cardiac dysrhythmias (18 sources) Palpitations; Translations: [Tachycardia, unspecified] Onset: 09-20-2010 09-20-2010 Episodic Complication of device; implant or graft (2 sources) Infection and inflammatory reaction due to cardiac valve prosthesis, initial encounter; Translations: [Infection and inflammatory reaction due to cardiac valve prosthesis, initial encounter] Onset: 11-29-2023 Episodic Fever of unknown origin (1 source) Fever, unspecified; Translations: [Fever, unspecified] Onset: 01-25-2024 Episodic Other aftercare (20 sources) care home (current) use of anticoagulants; Translations: [Long-term (current) use of other medications] Onset: 01-17-2012 04-14-2015 Episodic Other aftercare (2 sources) 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; Translations: [care home (current) use of antibiotics] Onset: 11-29-2023 Episodic Other circulatory disease (17 sources) History of endocarditis; Translations: [Personal history of other diseases of the circulatory system] Onset: 11-05-2015 11-05-2015 Episodic Other circulatory disease (1 source) Personal history of other diseases of the circulatory system; Translations: [Personal history of other diseases of the circulatory system] Onset: 03-07-2024 Episodic Other lower respiratory disease (1 source) Dyspnea, unspecified; Translations: [Dyspnea, unspecified] Onset: 09-03-2024 Episodic Other lower respiratory disease (1 source) Hypoxemia; Translations: [Hypoxemia] Onset: 08-27-2024 Episodic Other nutritional; endocrine; and metabolic disorders (20 sources) Body mass index (BMI) 29.0-29.9, adult; Translations: [Body mass index (BMI) 28.0-28.9, adult] Onset: 08-20-2013 Resolved: 04-14-2015 02-23-2014 Episodic Other nutritional; endocrine; and metabolic disorders (18 sources) Body mass index (BMI) 28.0-28.9, adult; Translations: [Body mass index (BMI) 28.0-28.9, adult] Onset: 08-20-2013 Resolved: 04-14-2015 08-20-2013 Episodic Other upper respiratory disease (1 source) Epistaxis; Translations: [Epistaxis] Onset: 06-11-2024 Episodic Other upper respiratory infections (1 source) Acute sinusitis, unspecified; Translations: [Acute sinusitis, unspecified] Onset: 01-19-2024 Episodic Ros-; endo-; and myocarditis; cardiomyopathy (except that caused by tuberculosis or sexually transmitted disease) (5 sources) Acute bacterial endocarditis; Translations: [Acute and subacute infective endocarditis] Onset: 06-06-2023 06-13-2023 Episodic Pleurisy; pneumothorax; pulmonary collapse (1 source) Pleural effusion, not elsewhere classified; Translations: [Pleural effusion, not elsewhere classified] Onset: 03-07-2024 Episodic Pneumonia (except that caused by tuberculosis or sexually transmitted disease) (1 source) Pneumonia, unspecified organism; Translations: [Pneumonia, unspecified organism] Onset: 08-27-2024 Episodic Septicemia (17 sources) Bacteremia; Translations: [Bacteremia] Onset: 11-05-2015 11-05-2015 Episodic Spondylosis; intervertebral disc disorders; other back problems (5 sources) Chronic back pain ; Translations: [Dorsalgia, unspecified] Onset: 01-11-2017 06-06-2023 Episodic Unclassified (9 sources) Long-term drug therapy; Translations: [Long-term (current) use of other medications] Onset: 01-17-2012 01-17-2012 Urinary tract infections (18 sources) Urinary tract infectious disease; Translations: [Other cystitis without hematuria] Onset: 08-07-2016 08-07-2016 Episodic Results Test Name Value Interpretation Reference Range Facil ity CBC W/Diff, Automatedon 06-0 Absolute Lymph 0.75 X10 3/uL Low 0.83-4.51 [facility] Comment on above: Performed By: #### L 100.0100, L300.3900, L503.7505, L500.4050 ####[facility] [address] [place], [address] Absolute Neut 3.7 X10 3/uL Normal 2.0-7.7 [facility] Comment on above: Performed By: #### L 100.0100, L300.3900, L503.7505, L500.4050 ####[facility] [address] [place], [address] Basophils/100 WBC (Bld) 1.2 % High 0-1 [facility] Comment on above: Performed By: #### L 100.0100, L300.3900, L503.7505, L500.4050 ####[facility] [address] [place], [address] Eosinophils/100 WBC (Bld) 5.5 % High 0-5 [facility] Comment on above: Performed By: #### L 100.0100, L300.3900, L503.7505, L500.4050 ####[facility] [address] [place], [address] Erythrocyte distribution width (RBC) [Ratio] 14.1 % Normal 11.6-14.6 [facility] Comment on above: Performed By: #### L 100.0100, L300.3900, L503.7505, L500.4050 ####[facility] [address] [place], [address] Hematocrit (Bld) [Volume fraction] 37.3 % Low 40-54 [facility] Comment on above: Performed By: #### L 100.0100, L300.3900, L503.7505, L500.4050 ####[facility] [address] [place], [address] Hemoglobin (Bld) [Mass/Vol] 12.4 g/dL Low 13.0-16.5 [facility] Comment on above: Performed By: #### L 100.0100, L300.3900, L503.7505, L500.4050 ####[facility] [address] [place], [address] IG% 0.200 Normal 0.0-0.9 [facility] Comment on above: Result Comment: IG% - Immature Granulocytes (promyelocytes, myelocytes andmetamyelocytes) > 1% indicates that a LEFT SHIFT is Present. Performed By: #### L 100.0100, L300.3900, L503.7505, L500.4050 ####[facility] [address] [place], [address] Lymphocytes/100 WBC (Bld) 12.8 % Low 19-41 [facility] Comment on above: Performed By: #### L 100.0100, L300.3900, L503.7505, L500.4050 ####[facility] [address] [place], [address] MCH (RBC) [Entitic mass] 32.9 pg High 27.0-32.0 [facility] Comment on above: Performed By: #### L 100.0100, L300.3900, L503.7505, L500.4050 ####[facility] [address] [place], [address] MCHC (RBC) [Mass/Vol] 33.2 g/dL Normal 32-36 [facility] Comment on above: Performed By: #### L 100.0100, L300.3900, L503.7505, L500.4050 ####[facility] [address] [place], [address] MCV (RBC) [Entitic vol] 98.9 fL High 80-94 [facility] Comment on above: Performed By: #### L 100.0100, L300.3900, L503.7505, L500.4050 ####[facility] [address] [place], [address] Monocytes/100 WBC (Bld) 17.0 % High 0-10 [facility] Comment on above: Performed By: #### L 100.0100, L300.3900, L503.7505, L500.4050 ####[facility] [address] [place], [address] Neutrophils/100 WBC (Bld) 63.3 % Normal 47-70 [facility] Comment on above: Performed By: #### L 100.0100, L300.3900, L503.7505, L500.4050 ####[facility] [address] [place], [address] Nucleated RBC (Bld) [#/Vol] 0 10*3/uL Normal 0-5 [facility] Comment on above: Performed By: #### L 100.0100, L300.3900, L503.7505, L500.4050 ####[facility] [address] [place], [address] Platelet mean volume (Bld) [Entitic vol] 10.5 fL Normal 6.2-12.0 [facility] Comment on above: Performed By: #### L 100.0100, L300.3900, L503.7505, L500.4050 ####[facility] [address] [place], [address] Platelets (Bld) [#/Vol] 197 10*3/uL Normal 150-450 [facility] Comment on above: Performed By: #### L 100.0100, L300.3900, L503.7505, L500.4050 ####[facility] [address] [place], [address] RBC (Bld) [#/Vol] 3.77 10*6/uL Low 4.6-6.2 [facility] Comment on above: Performed By: #### L 100.0100, L300.3900, L503.7505, L500.4050 ####[facility] [address] [place], [address] RDW SD 51.7 fl High 35.1-43.9 [facility] Comment on above: Performed By: #### L 100.0100, L300.3900, L503.7505, L500.4050 ####[facility] [address] [place], [address] WBC (Bld) [#/Vol] 5.8 10*3/uL Normal 4.4-11.0 [facility] Comment on above: Performed By: #### L 100.0100, L300.3900, L503.7505, L500.4050 ####[facility] [address] [place], [address] Cardiology Visit Reporton Cardiology Visit Report Normal [facility] Chest PA and Lateralon 11-10 Chest PA and Lateral Normal [facility] Comprehensive Metabolic Prof ilon 11-10-2024 Albumin [Mass/Vol] 3.9 g/dL Normal 3.4-4.8 [facility] Comment on above: Order Comment: Do al kal with other labs on SundayNovember 10 Performed By: #### L 100.0100, L300.3900, L503.7505, L500.4050 ####[facility] [address] [place], [address] Albumin/Globulin [Mass ratio] 1.0 {ratio} Normal 0.9-2.4 [facility] Comment on above: Order Comment: Do al kal with other labs on SundayNovember 10 Performed By: #### L 100.0100, L300.3900, L503.7505, L500.4050 ####[facility] [address] [place], [address] ALK PHOS 200 U/L High 40-129 [facility] Comment on above: Order Comment: Do al kal with other labs on SundayNovember 10 Performed By: #### L 100.0100, L300.3900, L503.7505, L500.4050 ####[facility] [address] [place], [address] ALT [Catalytic activity/Vol] 26 U/L Normal <=46 [facility] Comment on above: Order Comment: Do al kal with other labs on SundayNovember 10 Performed By: #### L 100.0100, L300.3900, L503.7505, L500.4050 ####[facility] [address] [place], [address] AST [Catalytic activity/Vol] 49 U/L High <=37 [facility] Comment on above: Order Comment: Do al kal with other labs on SundayNovember 10 Performed By: #### L 100.0100, L300.3900, L503.7505, L500.4050 ####[facility] [address] [place], [address] Bilirubin [Mass/Vol] 0.67 mg/dL Normal 0.00-1.30 [facility] Comment on above: Order Comment: Do al kal with other labs on SundayNovember 10 Performed By: #### L 100.0100, L300.3900, L503.7505, L500.4050 ####[facility] [address] [place], [address] BUN/CRE 20.4 RATIO High 10-20 [facility] Comment on above: Order Comment: Do al kal with other labs on SundayNovember 10 Performed By: #### L 100.0100, L300.3900, L503.7505, L500.4050 ####[facility] [address] [place], [address] Calcium [Mass/Vol] 9.2 mg/dL Normal 7.6-11.0 [facility] Comment on above: Order Comment: Do al kal with other labs on SundayNovember 10 Performed By: #### L 100.0100, L300.3900, L503.7505, L500.4050 ####[facility] [address] [place], [address] Chloride [Moles/Vol] 102 mmol/L Normal 98-108 [facility] Comment on above: Order Comment: Do al kal with other labs on SundayNovember 10 Performed By: #### L 100.0100, L300.3900, L503.7505, L500.4050 ####[facility] [address] [place], [address] CO2 [Moles/Vol] 28.4 mmol/L Normal 21.0-32.0 [facility] Comment on above: Order Comment: Do al kal with other labs on SundayNovember 10 Performed By: #### L 100.0100, L300.3900, L503.7505, L500.4050 ####[facility] [address] [place], [address] Creatinine [Mass/Vol] 1.12 mg/dL Normal 0.70-1.20 [facility] Comment on above: Order Comment: Do al kal with other labs on SundayNovember 10 Performed By: #### L 100.0100, L300.3900, L503.7505, L500.4050 ####[facility] [address] [place], [address] GAP 9 Normal 5-15 [facility] Comment on above: Order Comment: Do al kal with other labs on SundayNovember 10 Performed By: #### L 100.0100, L300.3900, L503.7505, L500.4050 ####[facility] [address] [place], [address] GFR/1.73 sq M.predicted among non-blacks MDRD (S/P/Bld) [Vol rate/Area] 67 mL/min/{1.73_m2} Normal >60 [facility] Comment on above: Order Comment: Do al kal with other labs on SundayNovember 10 Result Comment: mL/m in/1.73m2 CKD-EPI Creatinine Equation (2020) Performed By: #### L 100.0100, L300.3900, L503.7505, L500.4050 ####[facility] [address] [place], [address] Globulin (S) [Mass/Vol] 4.0 g/dL Normal 2.2-4.2 [facility] Comment on above: Order Comment: Do al kal with other labs on SundayNovember 10 Performed By: #### L 100.0100, L300.3900, L503.7505, L500.4050 ####[facility] [address] [place], [address] Glucose [Mass/Vol] 110 mg/dL High 70-99 [facility] Comment on above: Order Comment: Do al kal with other labs on SundayNovember 10 Performed By: #### L 100.0100, L300.3900, L503.7505, L500.4050 ####[facility] [address] [place], [address] Potassium [Moles/Vol] 4.2 mmol/L Normal 3.3-5.1 [facility] Comment on above: Order Comment: Do al kal with other labs on SundayNovember 10 Performed By: #### L 100.0100, L300.3900, L503.7505, L500.4050 ####[facility] [address] [place], [address] Sodium [Moles/Vol] 139 mmol/L Normal 133-145 [facility] Comment on above: Order Comment: Do al kal with other labs on SundayNovember 10 Performed By: #### L 100.0100, L300.3900, L503.7505, L500.4050 ####[facility] [address] [place], [address] T PROT 7.9 g/dL Normal 5.9-8.4 [facility] Comment on above: Order Comment: Do al kal with other labs on SundayNovember 10 Performed By: #### L 100.0100, L300.3900, L503.7505, L500.4050 ####[facility] [address] [place], [address] Urea nitrogen [Mass/Vol] 23 mg/dL High 4-19 [facility] Comment on above: Order Comment: Do al kal with other labs on SundayNovember 10 Performed By: #### L 100.0100, L300.3900, L503.7505, L500.4050 ####[facility] [address] [place], [address] L503.7505on 11-10-2024 Natriuretic peptide B (Bld) [Mass/Vol] 2020 pg/mL High <=1800 [facility] Comment on above: Result Comment: Hear t Failure Unlikely: < 300 pg/mLHeart Failure Likely< 50 Years: > 450 pg/mL50-75 Years: > 900 pg/mL>75 Years: > 1800 pg/mL Performed By: #### L 100.0100, L300.3900, L503.7505, L500.4050 ####[facility] [address] [place], [address] Prothrombin Time w/INRon INR Coag (PPP) [Relative time] 3.7 {INR} Normal [facility] Comment on above: Order Comment: Comme nts: Do along with other labs on SundayNovember 10 Performed By: #### L 100.0100, L300.3900, L503.7505, L500.4050 ####[facility] [address] [place], [address] PT Coag (PPP) [Time] 37.3 s High 11.7-14.9 [facility] Comment on above: Order Comment: Comme nts: Do along with other labs on SundayNovember 10 Performed By: #### L 100.0100, L300.3900, L503.7505, L500.4050 ####[facility] [address] [place], [place], [id number] Emergency Department Summary on 10-11-2024 Emergency Department Summary Normal [facility] HIP, UNI W/ Pelvis 2-3 Views on 10-11-2024 HIP, UNI W/ Pelvis 2-3 Views Normal [facility] Shoulder min 2 Viewson 10-11 Shoulder min 2 Views Normal [facility] CBC W/Diff, Automatedon - PATH REV Reviewed Normal [facility] Comment on above: Result Comment: SEE REPORT IN PATIENT'S EMR AMENDED REPORT 09/17/24 1045 PATH REV previously reported as: October Performed By: #### L 500.4050, L100.0100, L300.4310, L300.3900, L503.6005, M200.1000 ####[facility] [address] [place], [address] Culture, Blood (WB)on 2024 CUB Blood cultures x2, from two different sites No growth in 5 days. Normal [facility] Comment on above: Performed By: #### L 500.4050, L100.0100, L300.4310, L300.3900, L503.6005, M200.1000 ####[facility] [address] [place], [address] Basic Metabolic Profile (BMP )on 08-27-2024 BUN/CRE 13.2 RATIO Normal 10-20 [facility] Comment on above: Performed By: #### L 100.0100, L500.2500 ####[facility] [address] [place], [address] Calcium [Mass/Vol] 7.3 mg/dL Low 7.6-11.0 [facility] Comment on above: Performed By: #### L 100.0100, L500.2500 ####[facility] [address] [place], [address] Chloride [Moles/Vol] 98 mmol/L Normal 98-108 [facility] Comment on above: Performed By: #### L 100.0100, L500.2500 ####[facility] [address] [place], [address] CO2 [Moles/Vol] 25.0 mmol/L Normal 21.0-32.0 [facility] Comment on above: Performed By: #### L 100.0100, L500.2500 ####[facility] [address] [place], [address] Creatinine [Mass/Vol] 0.99 mg/dL Normal 0.70-1.20 [facility] Comment on above: Performed By: #### L 100.0100, L500.2500 ####[facility] [address] [place], [address] ECRCL 72.57 ml/min Normal 50-250 [facility] Comment on above: Performed By: #### L 100.0100, L500.2500 ####[facility] [address] [place], [address] GAP 12 Normal 5-15 [facility] Comment on above: Performed By: #### L 100.0100, L500.2500 ####[facility] [address] [place], [address] GFR/1.73 sq M.predicted among non-blacks MDRD (S/P/Bld) [Vol rate/Area] 78 mL/min/{1.73_m2} Normal >60 [facility] Comment on above: Result Comment: mL/m in/1.73m2 CKD-EPI Creatinine Equation (2020) Performed By: #### L 100.0100, L500.2500 ####[facility] [address] [place], [address] Glucose [Mass/Vol] 104 mg/dL High 70-99 [facility] Comment on above: Performed By: #### L 100.0100, L500.2500 ####[facility] [address] [place], [address] Potassium [Moles/Vol] 4.0 mmol/L Normal 3.3-5.1 [facility] Comment on above: Performed By: #### L 100.0100, L500.2500 ####[facility] [address] [place], [address] Sodium [Moles/Vol] 135 mmol/L Normal 133-145 [facility] Comment on above: Performed By: #### L 100.0100, L500.2500 ####[facility] [address] [place], [address] Urea nitrogen [Mass/Vol] 13 mg/dL Normal 4-19 [facility] Comment on above: Performed By: #### L 100.0100, L500.2500 ####[facility] [address] [place], [address] CBC W/Diff, Automatedon 08-03 Absolute Lymph 0.60 X10 3/uL Low 0.83-4.51 [facility] Comment on above: Performed By: #### L 100.0100, L500.2500 ####[facility] [address] [place], [address] Absolute Neut 3.7 X10 3/uL Normal 2.0-7.7 [facility] Comment on above: Performed By: #### L 100.0100, L500.2500 ####[facility] [address] [place], [address] Basophils/100 WBC (Bld) 1.1 % High 0-1 [facility] Comment on above: Performed By: #### L 100.0100, L500.2500 ####[facility] [address] [place], [address] Eosinophils/100 WBC (Bld) 4.4 % Normal 0-5 [facility] Comment on above: Performed By: #### L 100.0100, L500.2500 ####[facility] [address] [place], [address] Erythrocyte distribution width (RBC) [Ratio] 14.2 % Normal 11.6-14.6 [facility] Comment on above: Performed By: #### L 100.0100, L500.2500 ####[facility] [address] [place], [address] Hematocrit (Bld) [Volume fraction] 39.9 % Low 40-54 [facility] Comment on above: Performed By: #### L 100.0100, L500.2500 ####[facility] [address] [place], [address] Hemoglobin (Bld) [Mass/Vol] 13.4 g/dL Normal 13.0-16.5 [facility] Comment on above: Performed By: #### L 100.0100, L500.2500 ####[facility] [address] [place], [address] IG% 0.500 Normal 0.0-0.9 [facility] Comment on above: Result Comment: IG% - Immature Granulocytes (promyelocytes, myelocytes andmetamyelocytes) > 1% indicates that a LEFT SHIFT is Present. Performed By: #### L 100.0100, L500.2500 ####[facility] [address] [place], [address] Lymphocytes/100 WBC (Bld) 10.6 % Low 19-41 [facility] Comment on above: Performed By: #### L 100.0100, L500.2500 ####[facility] [address] [place], [address] MCH (RBC) [Entitic mass] 31.5 pg Normal 27.0-32.0 [facility] Comment on above: Performed By: #### L 100.0100, L500.2500 ####[facility] [address] [place], [address] MCHC (RBC) [Mass/Vol] 33.6 g/dL Normal 32-36 [facility] Comment on above: Performed By: #### L 100.0100, L500.2500 ####[facility] [address] [place], [address] MCV (RBC) [Entitic vol] 93.7 fL Normal 80-94 [facility] Comment on above: Performed By: #### L 100.0100, L500.2500 ####[facility] [address] [place], [address] Monocytes/100 WBC (Bld) 19.2 % High 0-10 [facility] Comment on above: Performed By: #### L 100.0100, L500.2500 ####[facility] [address] [place], [address] Neutrophils/100 WBC (Bld) 64.2 % Normal 47-70 [facility] Comment on above: Performed By: #### L 100.0100, L500.2500 ####[facility] [address] [place], [address] Nucleated RBC (Bld) [#/Vol] 0 10*3/uL Normal 0-5 [facility] Comment on above: Performed By: #### L 100.0100, L500.2500 ####[facility] [address] [place], [address] Platelet mean volume (Bld) [Entitic vol] 10.5 fL Normal 6.2-12.0 [facility] Comment on above: Performed By: #### L 100.0100, L500.2500 ####[facility] [address] [place], [address] Platelets (Bld) [#/Vol] 198 10*3/uL Normal 150-450 [facility] Comment on above: Performed By: #### L 100.0100, L500.2500 ####[facility] [address] [place], [address] RBC (Bld) [#/Vol] 4.26 10*6/uL Low 4.6-6.2 [facility] Comment on above: Performed By: #### L 100.0100, L500.2500 ####[facility] [address] [place], [address] RDW SD 48.6 fl High 35.1-43.9 [facility] Comment on above: Performed By: #### L 100.0100, L500.2500 ####[facility] [address] [place], [address] WBC (Bld) [#/Vol] 5.7 10*3/uL Normal 4.4-11.0 [facility] Comment on above: Performed By: #### L 100.0100, L500.2500 ####[facility] [address] [place], [address] Prothrombin Time w/INRon INR Coag (PPP) [Relative time] 2.4 {INR} Normal [facility] Comment on above: Performed By: #### L 300.3900 ####[facility] [address] [place], [address] PT Coag (PPP) [Time] 26.3 s High 11.7-14.9 [facility] Comment on above: Performed By: #### L 300.3900 ####[facility] [address] [place], [address] Basic Metabolic Profile (BMP )on 08-26-2024 BUN/CRE 14.6 RATIO Normal 10-20 [facility] Comment on above: Performed By: #### L 500.2500, L100.0100 ####[facility] [address] [place], [address] Calcium [Mass/Vol] 8.7 mg/dL Normal 7.6-11.0 [facility] Comment on above: Performed By: #### L 500.2500, L100.0100 ####[facility] [address] [place], [address] Chloride [Moles/Vol] 99 mmol/L Normal 98-108 [facility] Comment on above: Performed By: #### L 500.2500, L100.0100 ####[facility] [address] [place], [address] CO2 [Moles/Vol] 27.2 mmol/L Normal 21.0-32.0 [facility] Comment on above: Performed By: #### L 500.2500, L100.0100 ####[facility] [address] [place], [address] Creatinine [Mass/Vol] 0.94 mg/dL Normal 0.70-1.20 [facility] Comment on above: Performed By: #### L 500.2500, L100.0100 ####[facility] [address] [place], [address] ECRCL 76.43 ml/min Normal 50-250 [facility] Comment on above: Performed By: #### L 500.2500, L100.0100 ####[facility] [address] [place], [address] GAP 9 Normal 5-15 [facility] Comment on above: Performed By: #### L 500.2500, L100.0100 ####[facility] [address] [place], [address] GFR/1.73 sq M.predicted among non-blacks MDRD (S/P/Bld) [Vol rate/Area] 82 mL/min/{1.73_m2} Normal >60 [facility] Comment on above: Result Comment: mL/m in/1.73m2 CKD-EPI Creatinine Equation (2020) Performed By: #### L 500.2500, L100.0100 ####[facility] [address] [place], [address] Glucose [Mass/Vol] 108 mg/dL High 70-99 [facility] Comment on above: Performed By: #### L 500.2500, L100.0100 ####[facility] [address] [place], [address] Potassium [Moles/Vol] 4.1 mmol/L Normal 3.3-5.1 [facility] Comment on above: Performed By: #### L 500.2500, L100.0100 ####[facility] [address] [place], [address] Sodium [Moles/Vol] 135 mmol/L Normal 133-145 [facility] Comment on above: Performed By: #### L 500.2500, L100.0100 ####[facility] [address] [place], [address] Urea nitrogen [Mass/Vol] 14 mg/dL Normal 4-19 [facility] Comment on above: Performed By: #### L 500.2500, L100.0100 ####[facility] [address] [place], [address] CBC W/Diff, Automatedon 08-03-2024 Absolute Lymph 0.57 X10 3/uL Low 0.83-4.51 [facility] Comment on above: Performed By: #### L 500.2500, L100.0100 ####[facility] [address] [place], [address] Absolute Neut 5.0 X10 3/uL Normal 2.0-7.7 [facility] Comment on above: Performed By: #### L 500.2500, L100.0100 ####[facility] [address] [place], [address] Basophils/100 WBC (Bld) 0.6 % Normal 0-1 [facility] Comment on above: Performed By: #### L 500.2500, L100.0100 ####[facility] [address] [place], [address] Eosinophils/100 WBC (Bld) 2.9 % Normal 0-5 [facility] Comment on above: Performed By: #### L 500.2500, L100.0100 ####[facility] [address] [place], [address] Erythrocyte distribution width (RBC) [Ratio] 14.4 % Normal 11.6-14.6 [facility] Comment on above: Performed By: #### L 500.2500, L100.0100 ####[facility] [address] [place], [address] Hematocrit (Bld) [Volume fraction] 37.1 % Low 40-54 [facility] Comment on above: Performed By: #### L 500.2500, L100.0100 ####[facility] [address] [place], [address] Hemoglobin (Bld) [Mass/Vol] 12.6 g/dL Low 13.0-16.5 [facility] Comment on above: Performed By: #### L 500.2500, L100.0100 ####[facility] [address] [place], [address] IG% 0.400 Normal 0.0-0.9 [facility] Comment on above: Result Comment: IG% - Immature Granulocytes (promyelocytes, myelocytes andmetamyelocytes) > 1% indicates that a LEFT SHIFT is Present. Performed By: #### L 500.2500, L100.0100 ####[facility] [address] [place], [address] Lymphocytes/100 WBC (Bld) 8.1 % Low 19-41 [facility] Comment on above: Performed By: #### L 500.2500, L100.0100 ####[facility] [address] [place], [address] MCH (RBC) [Entitic mass] 31.8 pg Normal 27.0-32.0 [facility] Comment on above: Performed By: #### L 500.2500, L100.0100 ####[facility] [address] [place], [address] MCHC (RBC) [Mass/Vol] 34.0 g/dL Normal 32-36 [facility] Comment on above: Performed By: #### L 500.2500, L100.0100 ####[facility] [address] [place], [address] MCV (RBC) [Entitic vol] 93.7 fL Normal 80-94 [facility] Comment on above: Performed By: #### L 500.2500, L100.0100 ####[facility] [address] [place], [address] Monocytes/100 WBC (Bld) 17.0 % High 0-10 [facility] Comment on above: Performed By: #### L 500.2500, L100.0100 ####[facility] [address] [place], [address] Neutrophils/100 WBC (Bld) 71.0 % High 47-70 [facility] Comment on above: Performed By: #### L 500.2500, L100.0100 ####[facility] [address] [place], [address] Nucleated RBC (Bld) [#/Vol] 0 10*3/uL Normal 0-5 [facility] Comment on above: Performed By: #### L 500.2500, L100.0100 ####[facility] [address] [place], [address] Platelet mean volume (Bld) [Entitic vol] 10.4 fL Normal 6.2-12.0 [facility] Comment on above: Performed By: #### L 500.2500, L100.0100 ####[facility] [address] [place], [address] Platelets (Bld) [#/Vol] 181 10*3/uL Normal 150-450 [facility] Comment on above: Performed By: #### L 500.2500, L100.0100 ####[facility] [address] [place], [address] RBC (Bld) [#/Vol] 3.96 10*6/uL Low 4.6-6.2 [facility] Comment on above: Performed By: #### L 500.2500, L100.0100 ####[facility] [address] [place], [address] RDW SD 49.5 fl High 35.1-43.9 [facility] Comment on above: Performed By: #### L 500.2500, L100.0100 ####[facility] [address] [place], [address] WBC (Bld) [#/Vol] 7.0 10*3/uL Normal 4.4-11.0 [facility] Comment on above: Performed By: #### L 500.2500, L100.0100 ####[facility] [address] [place], [address] Prothrombin Time w/INRon INR Coag (PPP) [Relative time] 2.3 {INR} Normal [facility] Comment on above: Performed By: #### L 300.3900 ####[facility] [address] [place], [address] PT Coag (PPP) [Time] 25.9 s High 11.7-14.9 [facility] Comment on above: Performed By: #### L 300.3900 ####[facility] [address] [place], [address] Respiratory Cultureon 2024 RESPC Normal [facility] Comment on above: Performed By: #### M 100.2400, M100.2000 ####[facility] [address] [place], [address] Basic Metabolic Profile (BMP )on 08-25-2024 BUN/CRE 15.8 RATIO Normal 10-20 [facility] Comment on above: Performed By: #### L 100.0100, L500.2500 ####[facility] [address] [place], [address] Calcium [Mass/Vol] 8.6 mg/dL Normal 7.6-11.0 [facility] Comment on above: Performed By: #### L 100.0100, L500.2500 ####[facility] [address] [place], [address] Chloride [Moles/Vol] 102 mmol/L Normal 98-108 [facility] Comment on above: Performed By: #### L 100.0100, L500.2500 ####[facility] [address] [place], [address] CO2 [Moles/Vol] 23.6 mmol/L Normal 21.0-32.0 [facility] Comment on above: Performed By: #### L 100.0100, L500.2500 ####[facility] [address] [place], [address] Creatinine [Mass/Vol] 0.87 mg/dL Normal 0.70-1.20 [facility] Comment on above: Performed By: #### L 100.0100, L500.2500 ####[facility] [address] [place], [address] ECRCL 84.72 ml/min Normal 50-250 [facility] Comment on above: Performed By: #### L 100.0100, L500.2500 ####[facility] [address] [place], [address] GAP 10 Normal 5-15 [facility] Comment on above: Performed By: #### L 100.0100, L500.2500 ####[facility] [address] [place], [address] GFR/1.73 sq M.predicted among non-blacks MDRD (S/P/Bld) [Vol rate/Area] 88 mL/min/{1.73_m2} Normal >60 [facility] Comment on above: Result Comment: mL/m in/1.73m2 CKD-EPI Creatinine Equation (2020) Performed By: #### L 100.0100, L500.2500 ####[facility] [address] [place], [address] Glucose [Mass/Vol] 99 mg/dL Normal 70-99 [facility] Comment on above: Performed By: #### L 100.0100, L500.2500 ####[facility] [address] [place], [address] Potassium [Moles/Vol] 4.3 mmol/L Normal 3.3-5.1 [facility] Comment on above: Performed By: #### L 100.0100, L500.2500 ####[facility] [address] [place], [address] Sodium [Moles/Vol] 135 mmol/L Normal 133-145 [facility] Comment on above: Performed By: #### L 100.0100, L500.2500 ####[facility] [address] [place], [address] Urea nitrogen [Mass/Vol] 14 mg/dL Normal 4-19 [facility] Comment on above: Performed By: #### L 100.0100, L500.2500 ####[facility] [address] [place], [address] CBC W/Diff, Automatedon - Absolute Lymph 0.59 X10 3/uL Low 0.83-4.51 [facility] Comment on above: Performed By: #### L 100.0100, L500.2500 ####[facility] [address] [place], [address] Absolute Neut 5.8 X10 3/uL Normal 2.0-7.7 [facility] Comment on above: Performed By: #### L 100.0100, L500.2500 ####[facility] [address] [place], [address] Basophils/100 WBC (Bld) 0.6 % Normal 0-1 [facility] Comment on above: Performed By: #### L 100.0100, L500.2500 ####[facility] [address] [place], [address] Eosinophils/100 WBC (Bld) 2.5 % Normal 0-5 [facility] Comment on above: Performed By: #### L 100.0100, L500.2500 ####[facility] [address] [place], [address] Erythrocyte distribution width (RBC) [Ratio] 14.4 % Normal 11.6-14.6 [facility] Comment on above: Performed By: #### L 100.0100, L500.2500 ####[facility] [address] [place], [address] Hematocrit (Bld) [Volume fraction] 36.9 % Low 40-54 [facility] Comment on above: Performed By: #### L 100.0100, L500.2500 ####[facility] [address] [place], [address] Hemoglobin (Bld) [Mass/Vol] 12.3 g/dL Low 13.0-16.5 [facility] Comment on above: Performed By: #### L 100.0100, L500.2500 ####[facility] [address] [place], [address] IG% 0.400 Normal 0.0-0.9 [facility] Comment on above: Result Comment: IG% - Immature Granulocytes (promyelocytes, myelocytes andmetamyelocytes) > 1% indicates that a LEFT SHIFT is Present. Performed By: #### L 100.0100, L500.2500 ####[facility] [address] [place], [address] Lymphocytes/100 WBC (Bld) 7.6 % Low 19-41 [facility] Comment on above: Performed By: #### L 100.0100, L500.2500 ####[facility] [address] [place], [address] MCH (RBC) [Entitic mass] 31.3 pg Normal 27.0-32.0 [facility] Comment on above: Performed By: #### L 100.0100, L500.2500 ####[facility] [address] [place], [address] MCHC (RBC) [Mass/Vol] 33.3 g/dL Normal 32-36 [facility] Comment on above: Performed By: #### L 100.0100, L500.2500 ####[facility] [address] [place], [address] MCV (RBC) [Entitic vol] 93.9 fL Normal 80-94 [facility] Comment on above: Performed By: #### L 100.0100, L500.2500 ####[facility] [address] [place], [address] Monocytes/100 WBC (Bld) 13.8 % High 0-10 [facility] Comment on above: Performed By: #### L 100.0100, L500.2500 ####[facility] [address] [place], [address] Neutrophils/100 WBC (Bld) 75.1 % High 47-70 [facility] Comment on above: Performed By: #### L 100.0100, L500.2500 ####[facility] [address] [place], [address] Nucleated RBC (Bld) [#/Vol] 0 10*3/uL Normal 0-5 [facility] Comment on above: Performed By: #### L 100.0100, L500.2500 ####[facility] [address] [place], [address] Platelet mean volume (Bld) [Entitic vol] 10.2 fL Normal 6.2-12.0 [facility] Comment on above: Performed By: #### L 100.0100, L500.2500 ####[facility] [address] [place], [address] Platelets (Bld) [#/Vol] 174 10*3/uL Normal 150-450 [facility] Comment on above: Performed By: #### L 100.0100, L500.2500 ####[facility] [address] [place], [address] RBC (Bld) [#/Vol] 3.93 10*6/uL Low 4.6-6.2 [facility] Comment on above: Performed By: #### L 100.0100, L500.2500 ####[facility] [address] [place], [address] RDW SD 50.3 fl High 35.1-43.9 [facility] Comment on above: Performed By: #### L 100.0100, L500.2500 ####[facility] [address] [place], [address] WBC (Bld) [#/Vol] 7.7 10*3/uL Normal 4.4-11.0 [facility] Comment on above: Performed By: #### L 100.0100, L500.2500 ####[facility] [address] [place], [address] Prothrombin Time w/INRon INR Coag (PPP) [Relative time] 2.0 {INR} Normal [facility] Comment on above: Performed By: #### L 300.3900 ####[facility] [address] [place], [address] PT Coag (PPP) [Time] 22.7 s High 11.7-14.9 [facility] Comment on above: Performed By: #### L 300.3900 ####[facility] [address] [place], [address] CBC W/Diff, Automatedon - Absolute Lymph 0.85 X10 3/uL Normal 0.83-4.51 [facility] Comment on above: Performed By: #### L 100.0100, L300.3900, L500.4050 ####[facility] [address] [place], [address] Absolute Neut 4.2 X10 3/uL Normal 2.0-7.7 [facility] Comment on above: Performed By: #### L 100.0100, L300.3900, L500.4050 ####[facility] [address] [place], [address] Basophils/100 WBC (Bld) 1.2 % High 0-1 [facility] Comment on above: Performed By: #### L 100.0100, L300.3900, L500.4050 ####[facility] [address] [place], [address] Eosinophils/100 WBC (Bld) 2.1 % Normal 0-5 [facility] Comment on above: Performed By: #### L 100.0100, L300.3900, L500.4050 ####[facility] [address] [place], [address] Erythrocyte distribution width (RBC) [Ratio] 14.5 % Normal 11.6-14.6 [facility] Comment on above: Performed By: #### L 100.0100, L300.3900, L500.4050 ####[facility] [address] [place], [address] Hematocrit (Bld) [Volume fraction] 37.4 % Low 40-54 [facility] Comment on above: Performed By: #### L 100.0100, L300.3900, L500.4050 ####[facility] [address] [place], [address] Hemoglobin (Bld) [Mass/Vol] 12.5 g/dL Low 13.0-16.5 [facility] Comment on above: Performed By: #### L 100.0100, L300.3900, L500.4050 ####[facility] [address] [place], [address] IG% 0.400 Normal 0.0-0.9 [facility] Comment on above: Result Comment: IG% - Immature Granulocytes (promyelocytes, myelocytes andmetamyelocytes) > 1% indicates that a LEFT SHIFT is Present. Performed By: #### L 100.0100, L300.3900, L500.4050 ####[facility] [address] [place], [address] Lymphocytes/100 WBC (Bld) 12.7 % Low 19-41 [facility] Comment on above: Performed By: #### L 100.0100, L300.3900, L500.4050 ####[facility] [address] [place], [address] MCH (RBC) [Entitic mass] 31.8 pg Normal 27.0-32.0 [facility] Comment on above: Performed By: #### L 100.0100, L300.3900, L500.4050 ####[facility] [address] [place], [address] MCHC (RBC) [Mass/Vol] 33.4 g/dL Normal 32-36 [facility] Comment on above: Performed By: #### L 100.0100, L300.3900, L500.4050 ####[facility] [address] [place], [address] MCV (RBC) [Entitic vol] 95.2 fL High 80-94 [facility] Comment on above: Performed By: #### L 100.0100, L300.3900, L500.4050 ####[facility] [address] [place], [address] Monocytes/100 WBC (Bld) 20.8 % High 0-10 [facility] Comment on above: Performed By: #### L 100.0100, L300.3900, L500.4050 ####[facility] [address] [place], [address] Neutrophils/100 WBC (Bld) 62.8 % Normal 47-70 [facility] Comment on above: Performed By: #### L 100.0100, L300.3900, L500.4050 ####[facility] [address] [place], [address] Nucleated RBC (Bld) [#/Vol] 0 10*3/uL Normal 0-5 [facility] Comment on above: Performed By: #### L 100.0100, L300.3900, L500.4050 ####[facility] [address] [place], [address] Platelet mean volume (Bld) [Entitic vol] 10.7 fL Normal 6.2-12.0 [facility] Comment on above: Performed By: #### L 100.0100, L300.3900, L500.4050 ####[facility] [address] [place], [address] Platelets (Bld) [#/Vol] 165 10*3/uL Normal 150-450 [facility] Comment on above: Performed By: #### L 100.0100, L300.3900, L500.4050 ####[facility] [address] [place], [address] RBC (Bld) [#/Vol] 3.93 10*6/uL Low 4.6-6.2 [facility] Comment on above: Performed By: #### L 100.0100, L300.3900, L500.4050 ####[facility] [address] [place], [address] RDW SD 50.9 fl High 35.1-43.9 [facility] Comment on above: Performed By: #### L 100.0100, L300.3900, L500.4050 ####[facility] [address] [place], [address] WBC (Bld) [#/Vol] 6.7 10*3/uL Normal 4.4-11.0 [facility] Comment on above: Performed By: #### L 100.0100, L300.3900, L500.4050 ####[facility] [address] [place], [address] Comprehensive Metabolic Prof ilon 08-24-2024 Albumin [Mass/Vol] 3.4 g/dL Normal 3.4-4.8 [facility] Comment on above: Performed By: #### L 100.0100, L300.3900, L500.4050 ####[facility] [address] [place], [address] Albumin/Globulin [Mass ratio] 0.9 {ratio} Normal 0.9-2.4 [facility] Comment on above: Performed By: #### L 100.0100, L300.3900, L500.4050 ####[facility] [address] [place], [address] ALK PHOS 171 U/L High 40-129 [facility] Comment on above: Performed By: #### L 100.0100, L300.3900, L500.4050 ####[facility] [address] [place], [address] ALT [Catalytic activity/Vol] 25 U/L Normal <=46 [facility] Comment on above: Performed By: #### L 100.0100, L300.3900, L500.4050 ####[facility] [address] [place], [address] AST [Catalytic activity/Vol] 57 U/L High <=37 [facility] Comment on above: Performed By: #### L 100.0100, L300.3900, L500.4050 ####[facility] [address] [place], [address] Bilirubin [Mass/Vol] 1.11 mg/dL Normal 0.00-1.30 [facility] Comment on above: Performed By: #### L 100.0100, L300.3900, L500.4050 ####[facility] [address] [place], [address] BUN/CRE 13.9 RATIO Normal 10-20 [facility] Comment on above: Performed By: #### L 100.0100, L300.3900, L500.4050 ####[facility] [address] [place], [address] Calcium [Mass/Vol] 8.7 mg/dL Normal 7.6-11.0 [facility] Comment on above: Performed By: #### L 100.0100, L300.3900, L500.4050 ####[facility] [address] [place], [address] Chloride [Moles/Vol] 102 mmol/L Normal 98-108 [facility] Comment on above: Performed By: #### L 100.0100, L300.3900, L500.4050 ####[facility] [address] [place], [address] CO2 [Moles/Vol] 22.2 mmol/L Normal 21.0-32.0 [facility] Comment on above: Performed By: #### L 100.0100, L300.3900, L500.4050 ####[facility] [address] [place], [address] Creatinine [Mass/Vol] 1.03 mg/dL Normal 0.70-1.20 [facility] Comment on above: Performed By: #### L 100.0100, L300.3900, L500.4050 ####[facility] [address] [place], [address] ECRCL 71.82 ml/min Normal 50-250 [facility] Comment on above: Performed By: #### L 100.0100, L300.3900, L500.4050 ####[facility] [address] [place], [address] GAP 11 Normal 5-15 [facility] Comment on above: Performed By: #### L 100.0100, L300.3900, L500.4050 ####[facility] [address] [place], [address] GFR/1.73 sq M.predicted among non-blacks MDRD (S/P/Bld) [Vol rate/Area] 74 mL/min/{1.73_m2} Normal >60 [facility] Comment on above: Result Comment: mL/m in/1.73m2 CKD-EPI Creatinine Equation (2020) Performed By: #### L 100.0100, L300.3900, L500.4050 ####[facility] [address] [place], [address] Globulin (S) [Mass/Vol] 3.8 g/dL Normal 2.2-4.2 [facility] Comment on above: Performed By: #### L 100.0100, L300.3900, L500.4050 ####[facility] [address] [place], [address] Glucose [Mass/Vol] 93 mg/dL Normal 70-99 [facility] Comment on above: Performed By: #### L 100.0100, L300.3900, L500.4050 ####[facility] [address] [place], [address] Potassium [Moles/Vol] 4.3 mmol/L Normal 3.3-5.1 [facility] Comment on above: Result Comment: Hemo lysis present, Results??could be affected.?? Performed By: #### L 100.0100, L300.3900, L500.4050 ####[facility] [address] [place], [address] Sodium [Moles/Vol] 135 mmol/L Normal 133-145 [facility] Comment on above: Performed By: #### L 100.0100, L300.3900, L500.4050 ####[facility] [address] [place], [address] T PROT 7.2 g/dL Normal 5.9-8.4 [facility] Comment on above: Performed By: #### L 100.0100, L300.3900, L500.4050 ####[facility] [address] [place], [address] Urea nitrogen [Mass/Vol] 14 mg/dL Normal 4-19 [facility] Comment on above: Performed By: #### L 100.0100, L300.3900, L500.4050 ####[facility] [address] [place], [address] Prothrombin Time w/INRon INR Coag (PPP) [Relative time] 1.9 {INR} Normal [facility] Comment on above: Performed By: #### L 100.0100, L300.3900, L500.4050 ####[facility] [address] [place], [address] PT Coag (PPP) [Time] 22.5 s High 11.7-14.9 [facility] Comment on above: Performed By: #### L 100.0100, L300.3900, L500.4050 ####[facility] [address] [place], [address] Urine Cultureon 08-24-2024 URC Culture exhibits no growth. Normal [facility] Comment on above: Performed By: #### M 100.2200, L400.0001 ####[facility] [address] [place], [address] 12 Lead EKGon 08-23-2024 12 Lead EKG Normal [facility] CBC W/Diff, Automatedon - Absolute Lymph 0.79 X10 3/uL Low 0.83-4.51 [facility] Comment on above: Performed By: #### L 500.4050, L100.0100, L300.3900 ####[facility] [address] [place], [address] Absolute Neut 7.8 X10 3/uL High 2.0-7.7 [facility] Comment on above: Performed By: #### L 500.4050, L100.0100, L300.3900 ####[facility] [address] [place], [address] Basophils/100 WBC (Bld) 0.5 % Normal 0-1 [facility] Comment on above: Performed By: #### L 500.4050, L100.0100, L300.3900 ####[facility] [address] [place], [address] Eosinophils/100 WBC (Bld) 0.4 % Normal 0-5 [facility] Comment on above: Performed By: #### L 500.4050, L100.0100, L300.3900 ####[facility] [address] [place], [address] Erythrocyte distribution width (RBC) [Ratio] 14.5 % Normal 11.6-14.6 [facility] Comment on above: Performed By: #### L 500.4050, L100.0100, L300.3900 ####[facility] [address] [place], [address] Hematocrit (Bld) [Volume fraction] 36.6 % Low 40-54 [facility] Comment on above: Performed By: #### L 500.4050, L100.0100, L300.3900 ####[facility] [address] [place], [address] Hemoglobin (Bld) [Mass/Vol] 12.3 g/dL Low 13.0-16.5 [facility] Comment on above: Performed By: #### L 500.4050, L100.0100, L300.3900 ####[facility] [address] [place], [address] IG% 0.300 Normal 0.0-0.9 [facility] Comment on above: Result Comment: IG% - Immature Granulocytes (promyelocytes, myelocytes andmetamyelocytes) > 1% indicates that a LEFT SHIFT is Present. Performed By: #### L 500.4050, L100.0100, L300.3900 ####[facility] [address] [place], [address] Lymphocytes/100 WBC (Bld) 8.0 % Low 19-41 [facility] Comment on above: Performed By: #### L 500.4050, L100.0100, L300.3900 ####[facility] [address] [place], [address] MCH (RBC) [Entitic mass] 31.7 pg Normal 27.0-32.0 [facility] Comment on above: Performed By: #### L 500.4050, L100.0100, L300.3900 ####[facility] [address] [place], [address] MCHC (RBC) [Mass/Vol] 33.6 g/dL Normal 32-36 [facility] Comment on above: Performed By: #### L 500.4050, L100.0100, L300.3900 ####[facility] [address] [place], [address] MCV (RBC) [Entitic vol] 94.3 fL High 80-94 [facility] Comment on above: Performed By: #### L 500.4050, L100.0100, L300.3900 ####[facility] [address] [place], [address] Monocytes/100 WBC (Bld) 12.5 % High 0-10 [facility] Comment on above: Performed By: #### L 500.4050, L100.0100, L300.3900 ####[facility] [address] [place], [address] Neutrophils/100 WBC (Bld) 78.3 % High 47-70 [facility] Comment on above: Performed By: #### L 500.4050, L100.0100, L300.3900 ####[facility] [address] [place], [address] Nucleated RBC (Bld) [#/Vol] 0 10*3/uL Normal 0-5 [facility] Comment on above: Performed By: #### L 500.4050, L100.0100, L300.3900 ####[facility] [address] [place], [address] Platelet mean volume (Bld) [Entitic vol] 10.1 fL Normal 6.2-12.0 [facility] Comment on above: Performed By: #### L 500.4050, L100.0100, L300.3900 ####[facility] [address] [place], [address] Platelets (Bld) [#/Vol] 178 10*3/uL Normal 150-450 [facility] Comment on above: Performed By: #### L 500.4050, L100.0100, L300.3900 ####[facility] [address] [place], [address] RBC (Bld) [#/Vol] 3.88 10*6/uL Low 4.6-6.2 [facility] Comment on above: Performed By: #### L 500.4050, L100.0100, L300.3900 ####[facility] [address] [place], [address] RDW SD 50.4 fl High 35.1-43.9 [facility] Comment on above: Performed By: #### L 500.4050, L100.0100, L300.3900 ####[facility] [address] [place], [address] WBC (Bld) [#/Vol] 9.9 10*3/uL Normal 4.4-11.0 [facility] Comment on above: Performed By: #### L 500.4050, L100.0100, L300.3900 ####[facility] [address] [place], [address] Chest 1 View (Portable)on Chest 1 View (Portable) Normal [facility] Comprehensive Metabolic Prof ilon 08-23-2024 Albumin [Mass/Vol] 3.3 g/dL Low 3.4-4.8 [facility] Comment on above: Performed By: #### L 500.4050, L100.0100, L300.3900 ####[facility] [address] [place], [address] Albumin/Globulin [Mass ratio] 0.9 {ratio} Normal 0.9-2.4 [facility] Comment on above: Performed By: #### L 500.4050, L100.0100, L300.3900 ####[facility] [address] [place], [address] ALK PHOS 168 U/L High 40-129 [facility] Comment on above: Performed By: #### L 500.4050, L100.0100, L300.3900 ####[facility] [address] [place], [address] ALT [Catalytic activity/Vol] 25 U/L Normal <=46 [facility] Comment on above: Performed By: #### L 500.4050, L100.0100, L300.3900 ####[facility] [address] [place], [address] AST [Catalytic activity/Vol] 53 U/L High <=37 [facility] Comment on above: Performed By: #### L 500.4050, L100.0100, L300.3900 ####[facility] [address] [place], [address] Bilirubin [Mass/Vol] 1.18 mg/dL Normal 0.00-1.30 [facility] Comment on above: Performed By: #### L 500.4050, L100.0100, L300.3900 ####[facility] [address] [place], [address] BUN/CRE 15.2 RATIO Normal 10-20 [facility] Comment on above: Performed By: #### L 500.4050, L100.0100, L300.3900 ####[facility] [address] [place], [address] Calcium [Mass/Vol] 8.5 mg/dL Normal 7.6-11.0 [facility] Comment on above: Performed By: #### L 500.4050, L100.0100, L300.3900 ####[facility] [address] [place], [address] Chloride [Moles/Vol] 103 mmol/L Normal 98-108 [facility] Comment on above: Performed By: #### L 500.4050, L100.0100, L300.3900 ####[facility] [address] [place], [address] CO2 [Moles/Vol] 20.3 mmol/L Low 21.0-32.0 [facility] Comment on above: Performed By: #### L 500.4050, L100.0100, L300.3900 ####[facility] [address] [place], [address] Creatinine [Mass/Vol] 1.28 mg/dL High 0.70-1.20 [facility] Comment on above: Performed By: #### L 500.4050, L100.0100, L300.3900 ####[facility] [address] [place], [address] ECRCL 57.43 ml/min Normal 50-250 [facility] Comment on above: Performed By: #### L 500.4050, L100.0100, L300.3900 ####[facility] [address] [place], [address] GAP 12 Normal 5-15 [facility] Comment on above: Performed By: #### L 500.4050, L100.0100, L300.3900 ####[facility] [address] [place], [address] GFR/1.73 sq M.predicted among non-blacks MDRD (S/P/Bld) [Vol rate/Area] 57 mL/min/{1.73_m2} Low >60 [facility] Comment on above: Result Comment: mL/m in/1.73m2 CKD-EPI Creatinine Equation (2020) Performed By: #### L 500.4050, L100.0100, L300.3900 ####[facility] [address] [place], [address] Globulin (S) [Mass/Vol] 3.7 g/dL Normal 2.2-4.2 [facility] Comment on above: Performed By: #### L 500.4050, L100.0100, L300.3900 ####[facility] [address] [place], [address] Glucose [Mass/Vol] 134 mg/dL High 70-99 [facility] Comment on above: Performed By: #### L 500.4050, L100.0100, L300.3900 ####[facility] [address] [place], [address] Potassium [Moles/Vol] 4.4 mmol/L Normal 3.3-5.1 [facility] Comment on above: Performed By: #### L 500.4050, L100.0100, L300.3900 ####[facility] [address] [place], [address] Sodium [Moles/Vol] 135 mmol/L Normal 133-145 [facility] Comment on above: Performed By: #### L 500.4050, L100.0100, L300.3900 ####[facility] [address] [place], [address] T PROT 7.0 g/dL Normal 5.9-8.4 [facility] Comment on above: Performed By: #### L 500.4050, L100.0100, L300.3900 ####[facility] [address] [place], [address] Urea nitrogen [Mass/Vol] 19 mg/dL Normal 4-19 [facility] Comment on above: Performed By: #### L 500.4050, L100.0100, L300.3900 ####[facility] [address] [place], [address] Albumin [Mass/Vol] 4.0 g/dL Normal 3.4-4.8 [facility] Comment on above: Performed By: #### L 500.4050, L100.0100, L300.4310, L300.3900, L503.6005, M200.1000 ####[facility] [address] [place], [address] Albumin/Globulin [Mass ratio] 0.9 {ratio} Normal 0.9-2.4 [facility] Comment on above: Performed By: #### L 500.4050, L100.0100, L300.4310, L300.3900, L503.6005, M200.1000 ####[facility] [address] [place], [address] ALK PHOS 214 U/L High 40-129 [facility] Comment on above: Performed By: #### L 500.4050, L100.0100, L300.4310, L300.3900, L503.6005, M200.1000 ####[facility] [address] [place], [address] ALT [Catalytic activity/Vol] 32 U/L Normal <=46 [facility] Comment on above: Performed By: #### L 500.4050, L100.0100, L300.4310, L300.3900, L503.6005, M200.1000 ####[facility] [address] [place], [address] AST [Catalytic activity/Vol] 60 U/L High <=37 [facility] Comment on above: Performed By: #### L 500.4050, L100.0100, L300.4310, L300.3900, L503.6005, M200.1000 ####[facility] [address] [place], [address] Bilirubin [Mass/Vol] 1.47 mg/dL High 0.00-1.30 [facility] Comment on above: Performed By: #### L 500.4050, L100.0100, L300.4310, L300.3900, L503.6005, M200.1000 ####[facility] [address] [place], [address] BUN/CRE 15.3 RATIO Normal 10-20 [facility] Comment on above: Performed By: #### L 500.4050, L100.0100, L300.4310, L300.3900, L503.6005, M200.1000 ####[facility] [address] [place], [address] Calcium [Mass/Vol] 9.5 mg/dL Normal 7.6-11.0 [facility] Comment on above: Performed By: #### L 500.4050, L100.0100, L300.4310, L300.3900, L503.6005, M200.1000 ####[facility] [address] [place], [address] Chloride [Moles/Vol] 98 mmol/L Normal 98-108 [facility] Comment on above: Performed By: #### L 500.4050, L100.0100, L300.4310, L300.3900, L503.6005, M200.1000 ####[facility] [address] [place], [address] CO2 [Moles/Vol] 25.2 mmol/L Normal 21.0-32.0 [facility] Comment on above: Performed By: #### L 500.4050, L100.0100, L300.4310, L300.3900, L503.6005, M200.1000 ####[facility] [address] [place], [address] Creatinine [Mass/Vol] 1.27 mg/dL High 0.70-1.20 [facility] Comment on above: Performed By: #### L 500.4050, L100.0100, L300.4310, L300.3900, L503.6005, M200.1000 ####[facility] [address] [place], [address] ECRCL 58.28 ml/min Normal 50-250 [facility] Comment on above: Performed By: #### L 500.4050, L100.0100, L300.4310, L300.3900, L503.6005, M200.1000 ####[facility] [address] [place], [address] GAP 10 Normal 5-15 [facility] Comment on above: Performed By: #### L 500.4050, L100.0100, L300.4310, L300.3900, L503.6005, M200.1000 ####[facility] [address] [place], [address] GFR/1.73 sq M.predicted among non-blacks MDRD (S/P/Bld) [Vol rate/Area] 57 mL/min/{1.73_m2} Low >60 [facility] Comment on above: Result Comment: mL/m in/1.73m2 CKD-EPI Creatinine Equation (2020) Performed By: #### L 500.4050, L100.0100, L300.4310, L300.3900, L503.6005, M200.1000 ####[facility] [address] [place], [address] Globulin (S) [Mass/Vol] 4.5 g/dL High 2.2-4.2 [facility] Comment on above: Performed By: #### L 500.4050, L100.0100, L300.4310, L300.3900, L503.6005, M200.1000 ####[facility] [address] [place], [address] Glucose [Mass/Vol] 89 mg/dL Normal 70-99 [facility] Comment on above: Performed By: #### L 500.4050, L100.0100, L300.4310, L300.3900, L503.6005, M200.1000 ####[facility] [address] [place], [address] Potassium [Moles/Vol] 5.1 mmol/L Normal 3.3-5.1 [facility] Comment on above: Performed By: #### L 500.4050, L100.0100, L300.4310, L300.3900, L503.6005, M200.1000 ####[facility] [address] [place], [address] Sodium [Moles/Vol] 133 mmol/L Normal 133-145 [facility] Comment on above: Performed By: #### L 500.4050, L100.0100, L300.4310, L300.3900, L503.6005, M200.1000 ####[facility] [address] [place], [address] T PROT 8.5 g/dL High 5.9-8.4 [facility] Comment on above: Performed By: #### L 500.4050, L100.0100, L300.4310, L300.3900, L503.6005, M200.1000 ####[facility] [address] [place], [address] Urea nitrogen [Mass/Vol] 19 mg/dL Normal 4-19 [facility] Comment on above: Performed By: #### L 500.4050, L100.0100, L300.4310, L300.3900, L503.6005, M200.1000 ####[facility] [address] [place], [address] Emergency Department Summary on 08-23-2024 Emergency Department Summary Normal [facility] Gram Stainon 08-23-2024 GS Acceptable Specimen? Yes (<25 Epithelial cells per/lpf) Gram Stain 2+ White Blood Cells 2+ Gram positive cocci Rare Epithelial cells Normal [facility] Comment on above: Performed By: #### M 100.2400, M100.2000 ####[facility] [address] [place], [address] H AND P Exam - Hospitaliston 08-23-2024 H&P Exam - Hospitalist Normal [facility] L499.0042on 08-23-2024 Trop T High Sen 33 ng/L High <=22 [facility] Comment on above: Performed By: #### L 499.0042 ####[facility] [address] [place], [address] L499.0043on 08-23-2024 Trop T High Sen 40 ng/L High <=22 [facility] Comment on above: Performed By: #### L 499.0043 ####[facility] [address] [place], [address] L501.4021on 08-23-2024 Trop T High Sen 35 ng/L High <=22 [facility] Comment on above: Performed By: #### L 501.4021 ####[facility] [address] [place], [address] L503.7505on 08-23-2024 Natriuretic peptide B (Bld) [Mass/Vol] 3418 pg/mL High <=1800 [facility] Comment on above: Result Comment: Hear t Failure Unlikely: < 300 pg/mLHeart Failure Likely< 50 Years: > 450 pg/mL50-75 Years: > 900 pg/mL>75 Years: > 1800 pg/mL Performed By: #### L 503.7505 ####[facility] [address] [place], [address] Lactic Acidon 08-23-2024 Lactate [Moles/Vol] 1.3 mmol/L Normal 0.0-2.0 [facility] Comment on above: Order Comment: Y Performed By: #### L 500.4050, L100.0100, L300.4310, L300.3900, L503.6005, M200.1000 ####[facility] [address] [place], [address] Legionella Antigen Urineon 0 08-23-2024 LEGU Legionella Ag, Urine Negative (See interpretation below) Normal [facility] Comment on above: Performed By: #### M 300.4600, M300.4500 ####[facility] [address] [place], [address] M100.678on 08-23-2024 M100.678 SARS-CoV-2 (COVID 19 ) Negative INFLUENZA A Negative INFLUENZA B Negative RSV PCR Negative Normal [facility] Comment on above: Performed By: #### M 100.678 ####[facility] [address] [place], [address] Magnesiumon 08-23-2024 Magnesium [Mass/Vol] 1.7 mg/dL Normal 1.5-2.2 [facility] Comment on above: Order Comment: Comme nts: may add to ED labs Performed By: #### L 501.5200 ####[facility] [address] [place], [address] Partial Thromboplast Timeon 08-23-2024 aPTT Coag (Bld) [Time] 40.7 s High 24.1-36.2 [facility] Comment on above: Performed By: #### L 500.4050, L100.0100, L300.4310, L300.3900, L503.6005, M200.1000 ####[facility] [address] [place], [address] Prothrombin Time w/INRon INR Coag (PPP) [Relative time] 2.5 {INR} Normal [facility] Comment on above: Performed By: #### L 500.4050, L100.0100, L300.3900 ####[facility] [address] [place], [address] PT Coag (PPP) [Time] 27.9 s High 11.7-14.9 [facility] Comment on above: Performed By: #### L 500.4050, L100.0100, L300.3900 ####[facility] [address] [place], [address] INR Coag (PPP) [Relative time] 2.6 {INR} Normal [facility] Comment on above: Performed By: #### L 500.4050, L100.0100, L300.4310, L300.3900, L503.6005, M200.1000 ####[facility] [address] [place], [address] PT Coag (PPP) [Time] 28.4 s High 11.7-14.9 [facility] Comment on above: Performed By: #### L 500.4050, L100.0100, L300.4310, L300.3900, L503.6005, M200.1000 ####[facility] [address] [place], [address] RESPIRATORY PANEL MOLECULARo n 08-23-2024 RP PANEL Normal [facility] Comment on above: Performed By: #### M 100.638 ####[facility] [address] [place], [address] Strep pneumoniae Antig(UR,CS F)on 08-23-2024 STPAG Normal [facility] Comment on above: Performed By: #### M 300.4600, M300.4500 ####[facility] [address] [place], [address] Urinalysis, Completeon 08-23 RBC 0 SEEN Normal 0-5 [facility] Comment on above: Order Comment: COLLE CTOR TO SPECIFY Performed By: #### M 100.2200, L400.0001 ####[facility] [address] [place], [address] WBC 0-5 SEEN Normal 0-5 [facility] Comment on above: Order Comment: EB CTOR TO SPECIFY Performed By: #### M 100.2200, L400.0001 ####[facility] [address] [place], [address] BACTERIA 0 SEEN Normal None Seen [facility] Comment on above: Order Comment: EB CTOR TO SPECIFY Performed By: #### M 100.2200, L400.0001 ####[facility] [address] [place], [address] EPI,SQUAMOUS 0 SEEN Normal 0-5 [facility] Comment on above: Order Comment: EB CTOR TO SPECIFY Performed By: #### M 100.2200, L400.0001 ####[facility] [address] [place], [address] Mucus Ql (Urine sed) 0 SEEN Normal [facility] Comment on above: Order Comment: EB CTOR TO SPECIFY Performed By: #### M 100.2200, L400.0001 ####[facility] [address] [place], [address] Respiratory Cultureon 2024 RESPC Mixed normal respiratory kelby. No Haemophilus, Streptococcus pneumoniae, beta-hemolytic Streptococcus or Staphylococcus aureus isolated. Normal [facility] Comment on above: Performed By: #### M 100.1999, M100.2400 ####[facility] [address] [place], [address] Gram Stainon 07-12-2024 GS Acceptable Specimen? Yes (<25 Epithelial cells per/lpf) Gram Stain 3+ White Blood Cells 2+ Gram positive cocci Rare Epithelial cells Normal [facility] Comment on above: Performed By: #### M 100.1999, M100.2400 ####[facility] [address] [place], [address] Chest PA and Lateralon 07-11 Chest PA and Lateral Normal [facility] Summary on 05-09-2024 Emergency Department Summary Normal [facility] Prothrombin Time w/INRon INR Coag (PPP) [Relative time] 2.7 {INR} Normal [facility] Comment on above: Performed By: #### L 300.3900 ####[facility] [address] [place], [address] PT Coag (PPP) [Time] 28.7 s High 11.7-14.9 [facility] Comment on above: Performed By: #### L 300.3900 ####[facility] [address] [place], [address] Prothrombin Time w/INRon INR Coag (PPP) [Relative time] 2.9 {INR} Normal [facility] Comment on above: Performed By: #### L 300.3900 ####[facility] [address] [place], [address] PT Coag (PPP) [Time] 30.0 s High 11.7-14.9 [facility] Comment on above: Performed By: #### L 300.3900 ####[facility] [address] [place], [address] Basic Metabolic Profile (BMP )on 02-13-2024 BUN/CRE 18.2 RATIO Normal - [facility] Comment on above: Performed By: #### L 100.0500, L500.2500 ####[facility] [address] [place], [address] CA,Total 8.8 mg/dL Normal 8.5-10.1 [facility] Comment on above: Performed By: #### L 100.0500, L500.2500 ####[facility] [address] [place], [address] Chloride [Moles/Vol] 106 mmol/L Normal 98-107 [facility] Comment on above: Performed By: #### L 100.0500, L500.2500 ####[facility] [address] [place], [address] CO2 [Moles/Vol] 28.0 mmol/L Normal 21.0-32.0 [facility] Comment on above: Performed By: #### L 100.0500, L500.2500 ####[facility] [address] [place], [address] Creatinine [Mass/Vol] 0.99 mg/dL Normal 0.70-1.30 [facility] Comment on above: Result Comment: The validity of the calculated GFR GFRAA in patients over70 years has not been determined. Clinical correlation isessential. Performed By: #### L 100.0500, L500.2500 ####[facility] [address] [place], [address] EST GFR - AA 94 mL/min Normal >60 [facility] Comment on above: Result Comment: Afri can Maltese GFR Calc Performed By: #### L 100.0500, L500.2500 ####[facility] [address] [place], [address] GAP 2 Low 5-15 [facility] Comment on above: Performed By: #### L 100.0500, L500.2500 ####[facility] [address] [place], [address] GFR/1.73 sq M.predicted among non-blacks MDRD (S/P/Bld) [Vol rate/Area] 78 mL/min/{1.73_m2} Normal >60 [facility] Comment on above: Result Comment: Non- GFR Calc Performed By: #### L 100.0500, L500.2500 ####[facility] [address] [place], [address] Glucose [Mass/Vol] 108 mg/dL High 74-106 [facility] Comment on above: Result Comment: Fast ing Glucose result from 100 to 125 mg/dLsuggests IMPAIRED HOMEOSTASIS per A.D.A. criteria. Performed By: #### L 100.0500, L500.2500 ####[facility] [address] [place], [address] Potassium [Moles/Vol] 4.4 mmol/L Normal 3.5-5.1 [facility] Comment on above: Performed By: #### L 100.0500, L500.2500 ####[facility] [address] [place], [address] Sodium [Moles/Vol] 136 mmol/L Normal 136-145 [facility] Comment on above: Performed By: #### L 100.0500, L500.2500 ####[facility] [address] [place], [address] Urea nitrogen [Mass/Vol] 18 mg/dL Normal 7-18 [facility] Comment on above: Performed By: #### L 100.0500, L500.2500 ####[facility] [address] [place], [address] CBC-Complete Blood Cnt No Di ffon 02-13-2024 Erythrocyte distribution width (RBC) [Ratio] 14.9 % High 11.6-14.6 [facility] Comment on above: Performed By: #### L 100.0500, L500.2500 ####[facility] [address] [place], [address] Hematocrit (Bld) [Volume fraction] 38.9 % Low 40-54 [facility] Comment on above: Performed By: #### L 100.0500, L500.2500 ####[facility] [address] [place], [address] Hemoglobin (Bld) [Mass/Vol] 12.2 g/dL Low 13.0-16.5 [facility] Comment on above: Performed By: #### L 100.0500, L500.2500 ####[facility] [address] [place], [address] MCH (RBC) [Entitic mass] 30.7 pg Normal 27.0-32.0 [facility] Comment on above: Performed By: #### L 100.0500, L500.2500 ####[facility] [address] [place], [address] MCHC (RBC) [Mass/Vol] 31.4 g/dL Low 32-36 [facility] Comment on above: Performed By: #### L 100.0500, L500.2500 ####[facility] [address] [place], [address] MCV (RBC) [Entitic vol] 98.0 fL High 80-94 [facility] Comment on above: Performed By: #### L 100.0500, L500.2500 ####[facility] [address] [place], [address] Platelet mean volume (Bld) [Entitic vol] 11.3 fL Normal 6.2-12.0 [facility] Comment on above: Performed By: #### L 100.0500, L500.2500 ####[facility] [address] [place], [address] Platelets (Bld) [#/Vol] 206 10*3/uL Normal 150-450 [facility] Comment on above: Performed By: #### L 100.0500, L500.2500 ####[facility] [address] [place], [address] RBC (Bld) [#/Vol] 3.97 10*6/uL Low 4.6-6.2 [facility] Comment on above: Performed By: #### L 100.0500, L500.2500 ####[facility] [address] [place], [address] RDW SD 54.0 fl High 35.1-43.9 [facility] Comment on above: Performed By: #### L 100.0500, L500.2500 ####[facility] [address] [place], [address] WBC (Bld) [#/Vol] 6.3 10*3/uL Normal 4.4-11.0 [facility] Comment on above: Performed By: #### L 100.0500, L500.2500 ####[facility] [address] [place], [address] Basic Metabolic Profile (BMP )on 02-06-2024 BUN/CRE 13.1 RATIO Normal 10-20 [facility] Comment on above: Performed By: #### L 500.2500, L100.0500 ####[facility] [address] [place], [address] CA,Total 8.8 mg/dL Normal 8.5-10.1 [facility] Comment on above: Performed By: #### L 500.2500, L100.0500 ####[facility] [address] [place], [address] Chloride [Moles/Vol] 107 mmol/L Normal 98-107 [facility] Comment on above: Performed By: #### L 500.2500, L100.0500 ####[facility] [address] [place], [address] CO2 [Moles/Vol] 27.0 mmol/L Normal 21.0-32.0 [facility] Comment on above: Performed By: #### L 500.2500, L100.0500 ####[facility] [address] [place], [address] Creatinine [Mass/Vol] 1.00 mg/dL Normal 0.70-1.30 [facility] Comment on above: Result Comment: The validity of the calculated GFR GFRAA in patients over70 years has not been determined. Clinical correlation isessential. Performed By: #### L 500.2500, L100.0500 ####[facility] [address] [place], [address] EST GFR - AA 93 mL/min Normal >60 [facility] Comment on above: Result Comment: Afri can Maltese GFR Calc Performed By: #### L 500.2500, L100.0500 ####[facility] [address] [place], [address] GAP 3 Low 5-15 [facility] Comment on above: Performed By: #### L 500.2500, L100.0500 ####[facility] [address] [place], [address] GFR/1.73 sq M.predicted among non-blacks MDRD (S/P/Bld) [Vol rate/Area] 77 mL/min/{1.73_m2} Normal >60 [facility] Comment on above: Result Comment: Non- GFR Calc Performed By: #### L 500.2500, L100.0500 ####[facility] [address] [place], [address] Glucose [Mass/Vol] 96 mg/dL Normal 74-106 [facility] Comment on above: Performed By: #### L 500.2500, L100.0500 ####[facility] [address] [place], [address] Potassium [Moles/Vol] 4.2 mmol/L Normal 3.5-5.1 [facility] Comment on above: Performed By: #### L 500.2500, L100.0500 ####[facility] [address] [place], [address] Sodium [Moles/Vol] 137 mmol/L Normal 136-145 [facility] Comment on above: Performed By: #### L 500.2500, L100.0500 ####[facility] [address] [place], [address] Urea nitrogen [Mass/Vol] 13 mg/dL Normal 7-18 [facility] Comment on above: Performed By: #### L 500.2500, L100.0500 ####[facility] [address] [place], [address] CBC-Complete Blood Cnt No Di ffon 02-06-2024 Erythrocyte distribution width (RBC) [Ratio] 14.8 % High 11.6-14.6 [facility] Comment on above: Performed By: #### L 500.2500, L100.0500 ####[facility] [address] [place], [address] Hematocrit (Bld) [Volume fraction] 38.5 % Low 40-54 [facility] Comment on above: Performed By: #### L 500.2500, L100.0500 ####[facility] [address] [place], [address] Hemoglobin (Bld) [Mass/Vol] 12.3 g/dL Low 13.0-16.5 [facility] Comment on above: Performed By: #### L 500.2500, L100.0500 ####[facility] [address] [place], [address] MCH (RBC) [Entitic mass] 30.7 pg Normal 27.0-32.0 [facility] Comment on above: Performed By: #### L 500.2500, L100.0500 ####[facility] [address] [place], [address] MCHC (RBC) [Mass/Vol] 31.9 g/dL Low 32-36 [facility] Comment on above: Performed By: #### L 500.2500, L100.0500 ####[facility] [address] [place], [address] MCV (RBC) [Entitic vol] 96.0 fL High 80-94 [facility] Comment on above: Performed By: #### L 500.2500, L100.0500 ####[facility] [address] [place], [address] Platelet mean volume (Bld) [Entitic vol] 11.2 fL Normal 6.2-12.0 [facility] Comment on above: Performed By: #### L 500.2500, L100.0500 ####[facility] [address] [place], [address] Platelets (Bld) [#/Vol] 209 10*3/uL Normal 150-450 [facility] Comment on above: Performed By: #### L 500.2500, L100.0500 ####[facility] [address] [place], [address] RBC (Bld) [#/Vol] 4.01 10*6/uL Low 4.6-6.2 [facility] Comment on above: Performed By: #### L 500.2500, L100.0500 ####[facility] [address] [place], [address] RDW SD 52.0 fl High 35.1-43.9 [facility] Comment on above: Performed By: #### L 500.2500, L100.0500 ####[facility] [address] [place], [address] WBC (Bld) [#/Vol] 6.9 10*3/uL Normal 4.4-11.0 [facility] Comment on above: Performed By: #### L 500.2500, L100.0500 ####[facility] [address] [place], [address] Culture, Anaerobic Any Sourc cari 02-02-2024 CUAN No anaerobic bacteri a isolated. Normal [facility] Comment on above: Performed By: #### M 100.2000, L200.0200, M100.4001, M100.2900 ####[facility] [address] [place], [address] Prothrombin Time w/INRon INR Normal [facility] Comment on above: Result Comment: Canc elled via OM: Order cancelled - Patient discharged Performed By: #### L 300.3900 ####[facility] [address] [place], [address] PROTIME Normal 11.7-14.9 [facility] Comment on above: Result Comment: Canc elled via OM: Order cancelled - Patient discharged Performed By: #### L 300.3900 ####[facility] [address] [place], [address] Prothrombin Time w/INRon INR Normal [facility] Comment on above: Result Comment: Canc elled via OM: Order cancelled - Patient discharged Performed By: #### L 300.3900 ####[facility] [address] [place], [address] PROTIME Normal 11.7-14.9 [facility] Comment on above: Result Comment: Canc elled via OM: Order cancelled - Patient discharged Performed By: #### L 300.3900 ####[facility] [address] [place], [address] Discharge Instructionon 01-03 Discharge Instruction Normal [facility] Partial Thromboplast Timeon 01-30-2024 aPTT Coag (Bld) [Time] 72.1 s High 24.1-36.2 [facility] Comment on above: Performed By: #### L 300.4310 ####[facility] [address] [place], [address] aPTT Coag (Bld) [Time] 61.8 s High 24.1-36.2 [facility] Comment on above: Performed By: #### L 300.4310, L300.3900 ####[facility] [address] [place], [address] Prothrombin Time w/INRon INR Coag (PPP) [Relative time] 2.1 {INR} Normal [facility] Comment on above: Performed By: #### L 300.3900 ####[facility] [address] [place], [address] PT Coag (PPP) [Time] 23.7 s High 11.7-14.9 [facility] Comment on above: Performed By: #### L 300.3900 ####[facility] [address] [place], [address] INR Coag (PPP) [Relative time] 1.8 {INR} Normal [facility] Comment on above: Performed By: #### L 300.4310, L300.3900 ####[facility] [address] [place], [address] PT Coag (PPP) [Time] 20.6 s High 11.7-14.9 [facility] Comment on above: Performed By: #### L 300.4310, L300.3900 ####[facility] [address] [place], [address] Body Fluid Cell Count+Diffon 01-29-2024 PATH COMM/BF Reviewed Normal [facility] Comment on above: Order Comment: The r eference range and other method performancespecifications have not been established for this bodyfluid. The test must be integrated into the clinicalcontext for interpretation. Result Comment: Nega tive for malignant cells.PLEASE ALSO REFER TO CYTOLOGY REPORT [id number] Jimenez M.D. 01/29/24 AMENDED REPORT 01/29/24 1353 PATH COMM/BF previously reported as: May follow Performed By: #### M 100.1999, L200.0200, M100.4001, M100.2900 ####[facility] [address] [place], [address] Body Fluid Culton 01-29-2024 BFC Culture exhibits no growth. Normal [facility] Comment on above: Performed By: #### M 100.1999, L200.0200, M100.4001, M100.2900 ####[facility] [address] [place], [address] CBC W/Diff, Automatedon 01-03 Absolute Lymph 0.86 X10 3/uL Normal 0.83-4.51 [facility] Comment on above: Performed By: #### L 100.0100, L500.4050 ####[facility] [address] [place], [address] Absolute Neut 6.2 X10 3/uL Normal 2.0-7.7 [facility] Comment on above: Performed By: #### L 100.0100, L500.4050 ####[facility] [address] [place], [address] Basophils/100 WBC (Bld) 0.9 % Normal 0-1 [facility] Comment on above: Performed By: #### L 100.0100, L500.4050 ####[facility] [address] [place], [address] Eosinophils/100 WBC (Bld) 4.1 % Normal 0-5 [facility] Comment on above: Performed By: #### L 100.0100, L500.4050 ####[facility] [address] [place], [address] Erythrocyte distribution width (RBC) [Ratio] 14.6 % Normal 11.6-14.6 [facility] Comment on above: Performed By: #### L 100.0100, L500.4050 ####[facility] [address] [place], [address] Hematocrit (Bld) [Volume fraction] 37.0 % Low 40-54 [facility] Comment on above: Performed By: #### L 100.0100, L500.4050 ####[facility] [address] [place], [address] Hemoglobin (Bld) [Mass/Vol] 12.0 g/dL Low 13.0-16.5 [facility] Comment on above: Performed By: #### L 100.0100, L500.4050 ####[facility] [address] [place], [address] IG% 1.200 High 0.0-0.9 [facility] Comment on above: Result Comment: IG% - Immature Granulocytes (promyelocytes, myelocytes andmetamyelocytes) > 1% indicates that a LEFT SHIFT is Present. Performed By: #### L 100.0100, L500.4050 ####[facility] [address] [place], [address] Lymphocytes/100 WBC (Bld) 9.7 % Low 19-41 [facility] Comment on above: Performed By: #### L 100.0100, L500.4050 ####[facility] [address] [place], [address] MCH (RBC) [Entitic mass] 30.0 pg Normal 27.0-32.0 [facility] Comment on above: Performed By: #### L 100.0100, L500.4050 ####[facility] [address] [place], [address] MCHC (RBC) [Mass/Vol] 32.4 g/dL Normal 32-36 [facility] Comment on above: Performed By: #### L 100.0100, L500.4050 ####[facility] [address] [place], [address] MCV (RBC) [Entitic vol] 92.5 fL Normal 80-94 [facility] Comment on above: Performed By: #### L 100.0100, L500.4050 ####[facility] [address] [place], [address] Monocytes/100 WBC (Bld) 13.6 % High 0-10 [facility] Comment on above: Performed By: #### L 100.0100, L500.4050 ####[facility] [address] [place], [address] Neutrophils/100 WBC (Bld) 70.5 % High 47-70 [facility] Comment on above: Performed By: #### L 100.0100, L500.4050 ####[facility] [address] [place], [address] Nucleated RBC (Bld) [#/Vol] 0 10*3/uL Normal 0-5 [facility] Comment on above: Performed By: #### L 100.0100, L500.4050 ####[facility] [address] [place], [address] Platelet mean volume (Bld) [Entitic vol] 10.5 fL Normal 6.2-12.0 [facility] Comment on above: Performed By: #### L 100.0100, L500.4050 ####[facility] [address] [place], [address] Platelets (Bld) [#/Vol] 193 10*3/uL Normal 150-450 [facility] Comment on above: Performed By: #### L 100.0100, L500.4050 ####[facility] [address] [place], [address] RBC (Bld) [#/Vol] 4.00 10*6/uL Low 4.6-6.2 [facility] Comment on above: Performed By: #### L 100.0100, L500.4050 ####[facility] [address] [place], [address] RDW SD 49.2 fl High 35.1-43.9 [facility] Comment on above: Performed By: #### L 100.0100, L500.4050 ####[facility] [address] [place], [address] WBC (Bld) [#/Vol] 8.9 10*3/uL Normal 4.4-11.0 [facility] Comment on above: Performed By: #### L 100.0100, L500.4050 ####[facility] [address] [place], [address] Comprehensive Metabolic [facility] 01-29-2024 Albumin [Mass/Vol] 2.9 g/dL Low 3.2-5.0 [facility] Comment on above: Performed By: #### L 100.0100, L500.4050 ####[facility] [address] [place], [address] Albumin/Globulin [Mass ratio] 0.7 {ratio} Low 0.9-2.4 [facility] Comment on above: Performed By: #### L 100.0100, L500.4050 ####[facility] [address] [place], [address] ALK P 170 U/L High 45-117 [facility] Comment on above: Performed By: #### L 100.0100, L500.4050 ####[facility] [address] [place], [address] ALT [Catalytic activity/Vol] 22 U/L Normal 16-61 [facility] Comment on above: Performed By: #### L 100.0100, L500.4050 ####[facility] [address] [place], [address] AST [Catalytic activity/Vol] 44 U/L High 15-37 [facility] Comment on above: Performed By: #### L 100.0100, L500.4050 ####[facility] [address] [place], [address] Bilirubin [Mass/Vol] 0.90 mg/dL Normal 0.20-1.00 [facility] Comment on above: Result Comment: For patients on eltrombopag therapy, use of Dimension [place] TBIL is not recommended. Performed By: #### L 100.0100, L500.4050 ####[facility] [address] [place], [address] BUN/CRE 10.2 RATIO Normal 10-20 [facility] Comment on above: Performed By: #### L 100.0100, L500.4050 ####[facility] [address] [place], [address] CA,Total 9.1 mg/dL Normal 8.5-10.1 [facility] Comment on above: Performed By: #### L 100.0100, L500.4050 ####[facility] [address] [place], [address] Chloride [Moles/Vol] 106 mmol/L Normal 98-107 [facility] Comment on above: Performed By: #### L 100.0100, L500.4050 ####[facility] [address] [place], [address] CO2 [Moles/Vol] 26.0 mmol/L Normal 21.0-32.0 [facility] Comment on above: Performed By: #### L 100.0100, L500.4050 ####[facility] [address] [place], [address] Creatinine [Mass/Vol] 0.88 mg/dL Normal 0.70-1.30 [facility] Comment on above: Result Comment: The validity of the calculated GFR GFRAA in patients over70 years has not been determined. Clinical correlation isessential. Performed By: #### L 100.0100, L500.4050 ####[facility] [address] [place], [address] ECRCL 86.27 ml/min Normal [facility] Comment on above: Performed By: #### L 100.0100, L500.4050 ####[facility] [address] [place], [address] EST GFR - AA 107 mL/min Normal >60 [facility] Comment on above: Result Comment: Afri can Maltese GFR Calc Performed By: #### L 100.0100, L500.4050 ####[facility] [address] [place], [address] GAP 7 Normal 5-15 [facility] Comment on above: Performed By: #### L 100.0100, L500.4050 ####[facility] [address] [place], [address] GFR/1.73 sq M.predicted among non-blacks MDRD (S/P/Bld) [Vol rate/Area] 88 mL/min/{1.73_m2} Normal >60 [facility] Comment on above: Result Comment: Non- GFR Calc Performed By: #### L 100.0100, L500.4050 ####[facility] [address] [place], [address] Globulin (S) [Mass/Vol] 4.1 g/dL Normal 2.2-4.2 [facility] Comment on above: Performed By: #### L 100.0100, L500.4050 ####[facility] [address] [place], [address] Glucose [Mass/Vol] 102 mg/dL Normal 74-106 [facility] Comment on above: Result Comment: Fast ing Glucose result from 100 to 125 mg/dLsuggests IMPAIRED HOMEOSTASIS per A.D.A. criteria. Performed By: #### L 100.0100, L500.4050 ####[facility] [address] [place], [address] Potassium [Moles/Vol] 4.1 mmol/L Normal 3.5-5.1 [facility] Comment on above: Performed By: #### L 100.0100, L500.4050 ####[facility] [address] [place], [address] Sodium [Moles/Vol] 139 mmol/L Normal 136-145 [facility] Comment on above: Performed By: #### L 100.0100, L500.4050 ####[facility] [address] [place], [address] T PROT 7.0 g/dL Normal 6.4-8.2 [facility] Comment on above: Performed By: #### L 100.0100, L500.4050 ####[facility] [address] [place], [address] Urea nitrogen [Mass/Vol] 9 mg/dL Normal 7-18 [facility] Comment on above: Performed By: #### L 100.0100, L500.4050 ####[facility] [address] [place], [address] Partial Thromboplast Timeon 01-29-2024 aPTT Coag (Bld) [Time] 63.8 s High 24.1-36.2 [facility] Comment on above: Performed By: #### L 300.4310 ####[facility] [address] [place], [address] aPTT Coag (Bld) [Time] 55.6 s High 24.1-36.2 [facility] Comment on above: Performed By: #### L 300.4310 ####[facility] [address] [place], [address] aPTT Coag (Bld) [Time] 114.6 s Invalid Interpretation Code 24.1-36.2 [facility] Comment on above: Result Comment: CRIT ICAL VALUE VERIFIED. CALLED TO [id number]/27/24 043 Mason Reyes.RESULTS READ BACK BY SAME. Performed By: #### L 300.4310 ####[facility] [address] [place], [address] Prothrombin Time w/INRon INR Coag (PPP) [Relative time] 1.4 {INR} Normal [facility] Comment on above: Performed By: #### L 300.3900 ####[facility] [address] [place], [address] PT Coag (PPP) [Time] 17.1 s High 11.7-14.9 [facility] Comment on above: Performed By: #### L 300.3900 ####[facility] [address] [place], [address] CBC W/Diff, Automatedon 08- Absolute Lymph 0.77 X10 3/uL Low 0.83-4.51 [facility] Comment on above: Performed By: #### L 100.0100, L500.4050 ####[facility] [address] [place], [address] Absolute Neut 5.7 X10 3/uL Normal 2.0-7.7 [facility] Comment on above: Performed By: #### L 100.0100, L500.4050 ####[facility] [address] [place], [address] Basophils/100 WBC (Bld) 1.1 % High 0-1 [facility] Comment on above: Performed By: #### L 100.0100, L500.4050 ####[facility] [address] [place], [address] Eosinophils/100 WBC (Bld) 4.4 % Normal 0-5 [facility] Comment on above: Performed By: #### L 100.0100, L500.4050 ####[facility] [address] [place], [address] Erythrocyte distribution width (RBC) [Ratio] 14.5 % Normal 11.6-14.6 [facility] Comment on above: Performed By: #### L 100.0100, L500.4050 ####[facility] [address] [place], [address] Hematocrit (Bld) [Volume fraction] 37.9 % Low 40-54 [facility] Comment on above: Performed By: #### L 100.0100, L500.4050 ####[facility] [address] [place], [address] Hemoglobin (Bld) [Mass/Vol] 12.4 g/dL Low 13.0-16.5 [facility] Comment on above: Performed By: #### L 100.0100, L500.4050 ####[facility] [address] [place], [address] IG% 1.100 High 0.0-0.9 [facility] Comment on above: Result Comment: IG% - Immature Granulocytes (promyelocytes, myelocytes andmetamyelocytes) > 1% indicates that a LEFT SHIFT is Present. Performed By: #### L 100.0100, L500.4050 ####[facility] [address] [place], [address] Lymphocytes/100 WBC (Bld) 9.3 % Low 19-41 [facility] Comment on above: Performed By: #### L 100.0100, L500.4050 ####[facility] [address] [place], [address] MCH (RBC) [Entitic mass] 30.5 pg Normal 27.0-32.0 [facility] Comment on above: Performed By: #### L 100.0100, L500.4050 ####[facility] [address] [place], [address] MCHC (RBC) [Mass/Vol] 32.7 g/dL Normal 32-36 [facility] Comment on above: Performed By: #### L 100.0100, L500.4050 ####[facility] [address] [place], [address] MCV (RBC) [Entitic vol] 93.1 fL Normal 80-94 [facility] Comment on above: Performed By: #### L 100.0100, L500.4050 ####[facility] [address] [place], [address] Monocytes/100 WBC (Bld) 14.8 % High 0-10 [facility] Comment on above: Performed By: #### L 100.0100, L500.4050 ####[facility] [address] [place], [address] Neutrophils/100 WBC (Bld) 69.3 % Normal 47-70 [facility] Comment on above: Performed By: #### L 100.0100, L500.4050 ####[facility] [address] [place], [address] Nucleated RBC (Bld) [#/Vol] 0 10*3/uL Normal 0-5 [facility] Comment on above: Performed By: #### L 100.0100, L500.4050 ####[facility] [address] [place], [address] Platelet mean volume (Bld) [Entitic vol] 10.4 fL Normal 6.2-12.0 [facility] Comment on above: Performed By: #### L 100.0100, L500.4050 ####[facility] [address] [place], [address] Platelets (Bld) [#/Vol] 195 10*3/uL Normal 150-450 [facility] Comment on above: Performed By: #### L 100.0100, L500.4050 ####[facility] [address] [place], [address] RBC (Bld) [#/Vol] 4.07 10*6/uL Low 4.6-6.2 [facility] Comment on above: Performed By: #### L 100.0100, L500.4050 ####[facility] [address] [place], [address] RDW SD 49.3 fl High 35.1-43.9 [facility] Comment on above: Performed By: #### L 100.0100, L500.4050 ####[facility] [address] [place], [address] WBC (Bld) [#/Vol] 8.3 10*3/uL Normal 4.4-11.0 [facility] Comment on above: Performed By: #### L 100.0100, L500.4050 ####[facility] [address] [place], [address] Chest Insp/Exp 2 Viewon 01-03 Chest Insp/Exp 2 View Normal [facility] Comprehensive Metabolic Prof ilon 01-28-2024 Albumin [Mass/Vol] 2.9 g/dL Low 3.2-5.0 [facility] Comment on above: Performed By: #### L 100.0100, L500.4050 ####[facility] [address] [place], [address] Albumin/Globulin [Mass ratio] 0.7 {ratio} Low 0.9-2.4 [facility] Comment on above: Performed By: #### L 100.0100, L500.4050 ####[facility] [address] [place], [address] ALK P 180 U/L High 45-117 [facility] Comment on above: Performed By: #### L 100.0100, L500.4050 ####[facility] [address] [place], [address] ALT [Catalytic activity/Vol] 17 U/L Normal 16-61 [facility] Comment on above: Performed By: #### L 100.0100, L500.4050 ####[facility] [address] [place], [address] AST [Catalytic activity/Vol] 43 U/L High 15-37 [facility] Comment on above: Performed By: #### L 100.0100, L500.4050 ####[facility] [address] [place], [address] Bilirubin [Mass/Vol] 1.10 mg/dL High 0.20-1.00 [facility] Comment on above: Result Comment: For patients on eltrombopag therapy, use of Dimension [place] TBIL is not recommended. Performed By: #### L 100.0100, L500.4050 ####[facility] [address] [place], [address] BUN/CRE 10.5 RATIO Normal 10-20 [facility] Comment on above: Performed By: #### L 100.0100, L500.4050 ####[facility] [address] [place], [address] CA,Total 8.6 mg/dL Normal 8.5-10.1 [facility] Comment on above: Performed By: #### L 100.0100, L500.4050 ####[facility] [address] [place], [address] Chloride [Moles/Vol] 105 mmol/L Normal 98-107 [facility] Comment on above: Performed By: #### L 100.0100, L500.4050 ####[facility] [address] [place], [address] CO2 [Moles/Vol] 26.0 mmol/L Normal 21.0-32.0 [facility] Comment on above: Performed By: #### L 100.0100, L500.4050 ####[facility] [address] [place], [address] Creatinine [Mass/Vol] 0.95 mg/dL Normal 0.70-1.30 [facility] Comment on above: Result Comment: The validity of the calculated GFR GFRAA in patients over70 years has not been determined. Clinical correlation isessential. Performed By: #### L 100.0100, L500.4050 ####[facility] [address] [place], [address] ECRCL 80.00 ml/min Normal [facility] Comment on above: Performed By: #### L 100.0100, L500.4050 ####[facility] [address] [place], [address] EST GFR - AA 99 mL/min Normal >60 [facility] Comment on above: Result Comment: Afri can Maltese GFR Calc Performed By: #### L 100.0100, L500.4050 ####[facility] [address] [place], [address] GAP 7 Normal 5-15 [facility] Comment on above: Performed By: #### L 100.0100, L500.4050 ####[facility] [address] [place], [address] GFR/1.73 sq M.predicted among non-blacks MDRD (S/P/Bld) [Vol rate/Area] 82 mL/min/{1.73_m2} Normal >60 [facility] Comment on above: Result Comment: Non- GFR Calc Performed By: #### L 100.0100, L500.4050 ####[facility] [address] [place], [address] Globulin (S) [Mass/Vol] 4.3 g/dL High 2.2-4.2 [facility] Comment on above: Performed By: #### L 100.0100, L500.4050 ####[facility] [address] [place], [address] Glucose [Mass/Vol] 101 mg/dL Normal 74-106 [facility] Comment on above: Result Comment: Fast ing Glucose result from 100 to 125 mg/dLsuggests IMPAIRED HOMEOSTASIS per A.D.A. criteria. Performed By: #### L 100.0100, L500.4050 ####[facility] [address] [place], [address] Potassium [Moles/Vol] 4.0 mmol/L Normal 3.5-5.1 [facility] Comment on above: Performed By: #### L 100.0100, L500.4050 ####[facility] [address] [place], [address] Sodium [Moles/Vol] 138 mmol/L Normal 136-145 [facility] Comment on above: Performed By: #### L 100.0100, L500.4050 ####[facility] [address] [place], [address] T PROT 7.2 g/dL Normal 6.4-8.2 [facility] Comment on above: Performed By: #### L 100.0100, L500.4050 ####[facility] [address] [place], [address] Urea nitrogen [Mass/Vol] 10 mg/dL Normal 7-18 [facility] Comment on above: Performed By: #### L 100.0100, L500.4050 ####[facility] [address] [place], [address] Culture, Blood (WB)on 2023 CUB No growth in 5 days. Normal [facility] Comment on above: Performed By: #### M 200.1000 ####[facility] [address] [place], [address] Cytology, Body Fluid / CSFon 01-28-2024 CYTOLOGY,BF/CSF SEE PATHOLOGY REPORT Normal [facility] Comment on above: Result Comment: Spec imen submitted to Anatomical Pathology Department fortesting. Performed By: #### L 350.1000 ####[facility] [address] [place], [address] Gram Stainon 01-28-2024 GS Centrifuged Specimen ? Culture performed on centrifuged specimen Gram Stain 3+ Red Blood Cells Rare White Blood Cells No organisms seen Normal [facility] Comment on above: Performed By: #### M 100.2000, L200.0200, M100.4001, M100.2900 ####[facility] [address] [place], [address] Partial Thromboplast Timeon 01-28-2024 aPTT Coag (Bld) [Time] 65.2 s High 24.1-36.2 [facility] Comment on above: Performed By: #### L 300.4310 ####[facility] [address] [place], [address] aPTT Coag (Bld) [Time] 34.4 s Normal 24.1-36.2 [facility] Comment on above: Performed By: #### L 300.4310 ####[facility] [address] [place], [address] aPTT Coag (Bld) [Time] 57.3 s High 24.1-36.2 [facility] Comment on above: Performed By: #### L 300.4310 ####[facility] [address] [place], [address] Procedure Reporton Procedure Report Normal [facility] Special Stain Group IIon Special Stain Group II Normal [facility] Comment on above: Performed By: #### P SSII ####[facility] [address] [place], [address] CBC W/Diff, Automatedon 01-03 Absolute Lymph 0.67 X10 3/uL Low 0.83-4.51 [facility] Comment on above: Performed By: #### L 100.0100, L500.4050 ####[facility] [address] [place], [address] Absolute Neut 5.7 X10 3/uL Normal 2.0-7.7 [facility] Comment on above: Performed By: #### L 100.0100, L500.4050 ####[facility] [address] [place], [address] Basophils/100 WBC (Bld) 0.9 % Normal 0-1 [facility] Comment on above: Performed By: #### L 100.0100, L500.4050 ####[facility] [address] [place], [address] Eosinophils/100 WBC (Bld) 4.3 % Normal 0-5 [facility] Comment on above: Performed By: #### L 100.0100, L500.4050 ####[facility] [address] [place], [address] Erythrocyte distribution width (RBC) [Ratio] 14.2 % Normal 11.6-14.6 [facility] Comment on above: Performed By: #### L 100.0100, L500.4050 ####[facility] [address] [place], [address] Hematocrit (Bld) [Volume fraction] 37.2 % Low 40-54 [facility] Comment on above: Performed By: #### L 100.0100, L500.4050 ####[facility] [address] [place], [address] Hemoglobin (Bld) [Mass/Vol] 12.3 g/dL Low 13.0-16.5 [facility] Comment on above: Performed By: #### L 100.0100, L500.4050 ####[facility] [address] [place], [address] IG% 0.800 Normal 0.0-0.9 [facility] Comment on above: Result Comment: IG% - Immature Granulocytes (promyelocytes, myelocytes andmetamyelocytes) > 1% indicates that a LEFT SHIFT is Present. Performed By: #### L 100.0100, L500.4050 ####[facility] [address] [place], [address] Lymphocytes/100 WBC (Bld) 8.4 % Low 19-41 [facility] Comment on above: Performed By: #### L 100.0100, L500.4050 ####[facility] [address] [place], [address] MCH (RBC) [Entitic mass] 30.4 pg Normal 27.0-32.0 [facility] Comment on above: Performed By: #### L 100.0100, L500.4050 ####[facility] [address] [place], [address] MCHC (RBC) [Mass/Vol] 33.1 g/dL Normal 32-36 [facility] Comment on above: Performed By: #### L 100.0100, L500.4050 ####[facility] [address] [place], [address] MCV (RBC) [Entitic vol] 92.1 fL Normal 80-94 [facility] Comment on above: Performed By: #### L 100.0100, L500.4050 ####[facility] [address] [place], [address] Monocytes/100 WBC (Bld) 13.8 % High 0-10 [facility] Comment on above: Performed By: #### L 100.0100, L500.4050 ####[facility] [address] [place], [address] Neutrophils/100 WBC (Bld) 71.8 % High 47-70 [facility] Comment on above: Performed By: #### L 100.0100, L500.4050 ####[facility] [address] [place], [address] Nucleated RBC (Bld) [#/Vol] 0 10*3/uL Normal 0-5 [facility] Comment on above: Performed By: #### L 100.0100, L500.4050 ####[facility] [address] [place], [address] Platelet mean volume (Bld) [Entitic vol] 10.5 fL Normal 6.2-12.0 [facility] Comment on above: Performed By: #### L 100.0100, L500.4050 ####[facility] [address] [place], [address] Platelets (Bld) [#/Vol] 192 10*3/uL Normal 150-450 [facility] Comment on above: Performed By: #### L 100.0100, L500.4050 ####[facility] [address] [place], [address] RBC (Bld) [#/Vol] 4.04 10*6/uL Low 4.6-6.2 [facility] Comment on above: Performed By: #### L 100.0100, L500.4050 ####[facility] [address] [place], [address] RDW SD 48.4 fl High 35.1-43.9 [facility] Comment on above: Performed By: #### L 100.0100, L500.4050 ####[facility] [address] [place], [address] WBC (Bld) [#/Vol] 8.0 10*3/uL Normal 4.4-11.0 [facility] Comment on above: Performed By: #### L 100.0100, L500.4050 ####[facility] [address] [place], [address] Comprehensive Met[facility] Prof [facility] 01-27-2024 Albumin [Mass/Vol] 2.8 g/dL Low 3.2-5.0 [facility] Comment on above: Performed By: #### L 100.0100, L500.4050 ####[facility] [address] [place], [address] Albumin/Globulin [Mass ratio] 0.7 {ratio} Low 0.9-2.4 [facility] Comment on above: Performed By: #### L 100.0100, L500.4050 ####[facility] [address] [place], [address] ALK P 175 U/L High 45-117 [facility] Comment on above: Performed By: #### L 100.0100, L500.4050 ####[facility] [address] [place], [address] ALT [Catalytic activity/Vol] 21 U/L Normal 16-61 [facility] Comment on above: Performed By: #### L 100.0100, L500.4050 ####[facility] [address] [place], [address] AST [Catalytic activity/Vol] 40 U/L High 15-37 [facility] Comment on above: Performed By: #### L 100.0100, L500.4050 ####[facility] [address] [place], [address] Bilirubin [Mass/Vol] 0.90 mg/dL Normal 0.20-1.00 [facility] Comment on above: Result Comment: For patients on eltrombopag therapy, use of Dimension [place] TBIL is not recommended. Performed By: #### L 100.0100, L500.4050 ####[facility] [address] [place], [address] BUN/CRE 14.0 RATIO Normal 10-20 [facility] Comment on above: Performed By: #### L 100.0100, L500.4050 ####[facility] [address] [place], [address] CA,Total 8.5 mg/dL Normal 8.5-10.1 [facility] Comment on above: Performed By: #### L 100.0100, L500.4050 ####[facility] [address] [place], [address] Chloride [Moles/Vol] 108 mmol/L High 98-107 [facility] Comment on above: Performed By: #### L 100.0100, L500.4050 ####[facility] [address] [place], [address] CO2 [Moles/Vol] 25.0 mmol/L Normal 21.0-32.0 [facility] Comment on above: Performed By: #### L 100.0100, L500.4050 ####[facility] [address] [place], [address] Creatinine [Mass/Vol] 0.86 mg/dL Normal 0.70-1.30 [facility] Comment on above: Result Comment: The validity of the calculated GFR GFRAA in patients over70 years has not been determined. Clinical correlation isessential. Performed By: #### L 100.0100, L500.4050 ####[facility] [address] [place], [address] ECRCL 88.67 ml/min Normal [facility] Comment on above: Performed By: #### L 100.0100, L500.4050 ####[facility] [address] [place], [address] EST GFR - AA 110 mL/min Normal >60 [facility] Comment on above: Result Comment: Afri can Maltese GFR Calc Performed By: #### L 100.0100, L500.4050 ####[facility] [address] [place], [address] GAP 5 Normal 5-15 [facility] Comment on above: Performed By: #### L 100.0100, L500.4050 ####[facility] [address] [place], [address] GFR/1.73 sq M.predicted among non-blacks MDRD (S/P/Bld) [Vol rate/Area] 91 mL/min/{1.73_m2} Normal >60 [facility] Comment on above: Result Comment: Non- GFR Calc Performed By: #### L 100.0100, L500.4050 ####[facility] [address] [place], [address] Globulin (S) [Mass/Vol] 4.3 g/dL High 2.2-4.2 [facility] Comment on above: Performed By: #### L 100.0100, L500.4050 ####[facility] [address] [place], [address] Glucose [Mass/Vol] 114 mg/dL High 74-106 [facility] Comment on above: Result Comment: Fast ing Glucose result from 100 to 125 mg/dLsuggests IMPAIRED HOMEOSTASIS per A.D.A. criteria. Performed By: #### L 100.0100, L500.4050 ####[facility] [address] [place], [address] Potassium [Moles/Vol] 3.9 mmol/L Normal 3.5-5.1 [facility] Comment on above: Performed By: #### L 100.0100, L500.4050 ####[facility] [address] [place], [address] Sodium [Moles/Vol] 138 mmol/L Normal 136-145 [facility] Comment on above: Performed By: #### L 100.0100, L500.4050 ####[facility] [address] [place], [address] T PROT 7.1 g/dL Normal 6.4-8.2 [facility] Comment on above: Performed By: #### L 100.0100, L500.4050 ####[facility] [address] [place], [address] Urea nitrogen [Mass/Vol] 12 mg/dL Normal 7-18 [facility] Comment on above: Performed By: #### L 100.0100, L500.4050 ####[facility] [address] [place], [address] Culture, Blood (WB)on 2023 CUB No growth in 5 days. Normal [facility] Comment on above: Performed By: #### M 200.1000 ####[facility] [address] [place], [address] Partial Thromboplast Timeon 01-27-2024 aPTT Coag (Bld) [Time] 48.4 s High 24.1-36.2 [facility] Comment on above: Performed By: #### L 300.4310 ####[facility] [address] [place], [address] aPTT Coag (Bld) [Time] 59.7 s High 24.1-36.2 [facility] Comment on above: Performed By: #### L 300.4310 ####[facility] [address] [place], [address] aPTT Coag (Bld) [Time] 52.1 s High 24.1-36.2 [facility] Comment on above: Performed By: #### L 300.4310 ####[facility] [address] [place], [address] aPTT Coag (Bld) [Time] 60.5 s High 24.1-36.2 [facility] Comment on above: Performed By: #### L 300.4310 ####[facility] [address] [place], [address] Prothrombin Time w/INRon INR Coag (PPP) [Relative time] 1.7 {INR} Normal [facility] Comment on above: Performed By: #### L 300.3900 ####[facility] [address] [place], [address] PT Coag (PPP) [Time] 19.9 s High 11.7-14.9 [facility] Comment on above: Performed By: #### L 300.3900 ####[facility] [address] [place], [address] CBC W/Diff, Automatedon - Absolute Lymph 0.70 X10 3/uL Low 0.83-4.51 [facility] Comment on above: Performed By: #### L 500.4050, L100.0100 ####[facility] [address] [place], [address] Absolute Neut 6.1 X10 3/uL Normal 2.0-7.7 [facility] Comment on above: Performed By: #### L 500.4050, L100.0100 ####[facility] [address] [place], [address] Basophils/100 WBC (Bld) 1.0 % Normal 0-1 [facility] Comment on above: Performed By: #### L 500.4050, L100.0100 ####[facility] [address] [place], [address] Eosinophils/100 WBC (Bld) 5.2 % High 0-5 [facility] Comment on above: Performed By: #### L 500.4050, L100.0100 ####[facility] [address] [place], [address] Erythrocyte distribution width (RBC) [Ratio] 14.0 % Normal 11.6-14.6 [facility] Comment on above: Performed By: #### L 500.4050, L100.0100 ####[facility] [address] [place], [address] Hematocrit (Bld) [Volume fraction] 36.5 % Low 40-54 [facility] Comment on above: Performed By: #### L 500.4050, L100.0100 ####[facility] [address] [place], [address] Hemoglobin (Bld) [Mass/Vol] 12.1 g/dL Low 13.0-16.5 [facility] Comment on above: Performed By: #### L 500.4050, L100.0100 ####[facility] [address] [place], [address] IG% 0.700 Normal 0.0-0.9 [facility] Comment on above: Result Comment: IG% - Immature Granulocytes (promyelocytes, myelocytes andmetamyelocytes) > 1% indicates that a LEFT SHIFT is Present. Performed By: #### L 500.4050, L100.0100 ####[facility] [address] [place], [address] Lymphocytes/100 WBC (Bld) 8.3 % Low 19-41 [facility] Comment on above: Performed By: #### L 500.4050, L100.0100 ####[facility] [address] [place], [address] MCH (RBC) [Entitic mass] 30.1 pg Normal 27.0-32.0 [facility] Comment on above: Performed By: #### L 500.4050, L100.0100 ####[facility] [address] [place], [address] MCHC (RBC) [Mass/Vol] 33.2 g/dL Normal 32-36 [facility] Comment on above: Performed By: #### L 500.4050, L100.0100 ####[facility] [address] [place], [address] MCV (RBC) [Entitic vol] 90.8 fL Normal 80-94 [facility] Comment on above: Performed By: #### L 500.4050, L100.0100 ####[facility] [address] [place], [address] Monocytes/100 WBC (Bld) 12.1 % High 0-10 [facility] Comment on above: Performed By: #### L 500.4050, L100.0100 ####[facility] [address] [place], [address] Neutrophils/100 WBC (Bld) 72.7 % High 47-70 [facility] Comment on above: Performed By: #### L 500.4050, L100.0100 ####[facility] [address] [place], [address] Nucleated RBC (Bld) [#/Vol] 0 10*3/uL Normal 0-5 [facility] Comment on above: Performed By: #### L 500.4050, L100.0100 ####[facility] [address] [place], [address] Platelet mean volume (Bld) [Entitic vol] 10.2 fL Normal 6.2-12.0 [facility] Comment on above: Performed By: #### L 500.4050, L100.0100 ####[facility] [address] [place], [address] Platelets (Bld) [#/Vol] 173 10*3/uL Normal 150-450 [facility] Comment on above: Performed By: #### L 500.4050, L100.0100 ####[facility] [address] [place], [address] RBC (Bld) [#/Vol] 4.02 10*6/uL Low 4.6-6.2 [facility] Comment on above: Performed By: #### L 500.4050, L100.0100 ####[facility] [address] [place], [address] RDW SD 47.1 fl High 35.1-43.9 [facility] Comment on above: Performed By: #### L 500.4050, L100.0100 ####[facility] [address] [place], [address] WBC (Bld) [#/Vol] 8.4 10*3/uL Normal 4.4-11.0 [facility] Comment on above: Performed By: #### L 500.4050, L100.0100 ####[facility] [address] [place], [address] Comprehensive [facility] Prof [facility] 01[facility]-2024 Albumin [Mass/Vol] 3.0 g/dL Low 3.2-5.0 [facility] Comment on above: Performed By: #### L 500.4050, L100.0100 ####[facility] [address] [place], [address] Albumin/Globulin [Mass ratio] 0.7 {ratio} Low 0.9-2.4 [facility] Comment on above: Performed By: #### L 500.4050, L100.0100 ####[facility] [address] [place], [address] ALK P 179 U/L High 45-117 [facility] Comment on above: Performed By: #### L 500.4050, L100.0100 ####[facility] [address] [place], [address] ALT [Catalytic activity/Vol] 23 U/L Normal 16-61 [facility] Comment on above: Performed By: #### L 500.4050, L100.0100 ####[facility] [address] [place], [address] AST [Catalytic activity/Vol] 46 U/L High 15-37 [facility] Comment on above: Performed By: #### L 500.4050, L100.0100 ####[facility] [address] [place], [address] Bilirubin [Mass/Vol] 0.90 mg/dL Normal 0.20-1.00 [facility] Comment on above: Result Comment: For patients on eltrombopag therapy, use of Dimension [place] TBIL is not recommended. Performed By: #### L 500.4050, L100.0100 ####[facility] [address] [place], [address] BUN/CRE 12.0 RATIO Normal 10-20 [facility] Comment on above: Performed By: #### L 500.4050, L100.0100 ####[facility] [address] [place], [address] CA,Total 8.6 mg/dL Normal 8.5-10.1 [facility] Comment on above: Performed By: #### L 500.4050, L100.0100 ####[facility] [address] [place], [address] Chloride [Moles/Vol] 107 mmol/L Normal 98-107 [facility] Comment on above: Performed By: #### L 500.4050, L100.0100 ####[facility] [address] [place], [address] CO2 [Moles/Vol] 24.0 mmol/L Normal 21.0-32.0 [facility] Comment on above: Performed By: #### L 500.4050, L100.0100 ####[facility] [address] [place], [address] Creatinine [Mass/Vol] 0.84 mg/dL Normal 0.70-1.30 [facility] Comment on above: Result Comment: The validity of the calculated GFR GFRAA in patients over70 years has not been determined. Clinical correlation isessential. Performed By: #### L 500.4050, L100.0100 ####[facility] [address] [place], [address] ECRCL 90.79 ml/min Normal [facility] Comment on above: Performed By: #### L 500.4050, L100.0100 ####[facility] [address] [place], [address] EST GFR - AA 114 mL/min Normal >60 [facility] Comment on above: Result Comment: Afri can Maltese GFR Calc Performed By: #### L 500.4050, L100.0100 ####[facility] [address] [place], [address] GAP 7 Normal 5-15 [facility] Comment on above: Performed By: #### L 500.4050, L100.0100 ####[facility] [address] [place], [address] GFR/1.73 sq M.predicted among non-blacks MDRD (S/P/Bld) [Vol rate/Area] 94 mL/min/{1.73_m2} Normal >60 [facility] Comment on above: Result Comment: Non- GFR Calc Performed By: #### L 500.4050, L100.0100 ####[facility] [address] [place], [address] Globulin (S) [Mass/Vol] 4.2 g/dL Normal 2.2-4.2 [facility] Comment on above: Performed By: #### L 500.4050, L100.0100 ####[facility] [address] [place], [address] Glucose [Mass/Vol] 120 mg/dL High 74-106 [facility] Comment on above: Result Comment: Fast ing Glucose result from 100 to 125 mg/dLsuggests IMPAIRED HOMEOSTASIS per A.D.A. criteria. Performed By: #### L 500.4050, L100.0100 ####[facility] [address] [place], [address] Potassium [Moles/Vol] 3.8 mmol/L Normal 3.5-5.1 [facility] Comment on above: Performed By: #### L 500.4050, L100.0100 ####[facility] [address] [place], [address] Sodium [Moles/Vol] 138 mmol/L Normal 136-145 [facility] Comment on above: Performed By: #### L 500.4050, L100.0100 ####[facility] [address] [place], [address] T PROT 7.2 g/dL Normal 6.4-8.2 [facility] Comment on above: Performed By: #### L 500.4050, L100.0100 ####[facility] [address] [place], [address] Urea nitrogen [Mass/Vol] 10 mg/dL Normal 7-18 [facility] Comment on above: Performed By: #### L 500.4050, L100.0100 ####[facility] [address] [place], [address] Partial Thromboplast Timeon 01-26-2024 aPTT Coag (Bld) [Time] 53.6 s High 24.1-36.2 [facility] Comment on above: Performed By: #### L 300.4310 ####[facility] [address] [place], [address] aPTT Coag (Bld) [Time] 44.9 s High 24.1-36.2 [facility] Comment on above: Order Comment: VRI Performed By: #### L 300.4310 ####[facility] [address] [place], [address] aPTT Coag (Bld) [Time] 46.2 s High 24.1-36.2 [facility] Comment on above: Order Comment: Comme nts: heparin gtt Performed By: #### L 300.4310 ####[facility] [address] [place], [address] aPTT Coag (Bld) [Time] 57.9 s High 24.1-36.2 [facility] Comment on above: Order Comment: Comme nts: heparin gtt Performed By: #### L 300.4310 ####[facility] [address] [place], [address] Prothrombin Time w/INRon INR Coag (PPP) [Relative time] 2.0 {INR} Normal [facility] Comment on above: Performed By: #### L 300.3900 ####[facility] [address] [place], [address] PT Coag (PPP) [Time] 23.0 s High 11.7-14.9 [facility] Comment on above: Performed By: #### L 300.3900 ####[facility] [address] [place], [address] CBC W/Diff, Automatedon 01-03 Absolute Lymph 0.46 X10 3/uL Low 0.83-4.51 [facility] Comment on above: Performed By: #### L 100.0100, L500.4050 ####[facility] [address] [place], [address] Absolute Neut 4.4 X10 3/uL Normal 2.0-7.7 [facility] Comment on above: Performed By: #### L 100.0100, L500.4050 ####[facility] [address] [place], [address] Basophils/100 WBC (Bld) 0.8 % Normal 0-1 [facility] Comment on above: Performed By: #### L 100.0100, L500.4050 ####[facility] [address] [place], [address] Eosinophils/100 WBC (Bld) 5.8 % High 0-5 [facility] Comment on above: Performed By: #### L 100.0100, L500.4050 ####[facility] [address] [place], [address] Erythrocyte distribution width (RBC) [Ratio] 14.2 % Normal 11.6-14.6 [facility] Comment on above: Performed By: #### L 100.0100, L500.4050 ####[facility] [address] [place], [address] Hematocrit (Bld) [Volume fraction] 29.9 % Low 40-54 [facility] Comment on above: Performed By: #### L 100.0100, L500.4050 ####[facility] [address] [place], [address] Hemoglobin (Bld) [Mass/Vol] 9.8 g/dL Low 13.0-16.5 [facility] Comment on above: Performed By: #### L 100.0100, L500.4050 ####[facility] [address] [place], [address] IG% 0.600 Normal 0.0-0.9 [facility] Comment on above: Result Comment: IG% - Immature Granulocytes (promyelocytes, myelocytes andmetamyelocytes) > 1% indicates that a LEFT SHIFT is Present. Performed By: #### L 100.0100, L500.4050 ####[facility] [address] [place], [address] Lymphocytes/100 WBC (Bld) 7.4 % Low 19-41 [facility] Comment on above: Performed By: #### L 100.0100, L500.4050 ####[facility] [address] [place], [address] MCH (RBC) [Entitic mass] 30.6 pg Normal 27.0-32.0 [facility] Comment on above: Performed By: #### L 100.0100, L500.4050 ####[facility] [address] [place], [address] MCHC (RBC) [Mass/Vol] 32.8 g/dL Normal 32-36 [facility] Comment on above: Performed By: #### L 100.0100, L500.4050 ####[facility] [address] [place], [address] MCV (RBC) [Entitic vol] 93.4 fL Normal 80-94 [facility] Comment on above: Performed By: #### L 100.0100, L500.4050 ####[facility] [address] [place], [address] Monocytes/100 WBC (Bld) 14.8 % High 0-10 [facility] Comment on above: Performed By: #### L 100.0100, L500.4050 ####[facility] [address] [place], [address] Neutrophils/100 WBC (Bld) 70.6 % High 47-70 [facility] Comment on above: Performed By: #### L 100.0100, L500.4050 ####[facility] [address] [place], [address] Nucleated RBC (Bld) [#/Vol] 0 10*3/uL Normal 0-5 [facility] Comment on above: Performed By: #### L 100.0100, L500.4050 ####[facility] [address] [place], [address] Platelet mean volume (Bld) [Entitic vol] 10.4 fL Normal 6.2-12.0 [facility] Comment on above: Performed By: #### L 100.0100, L500.4050 ####[facility] [address] [place], [address] Platelets (Bld) [#/Vol] 137 10*3/uL Low 150-450 [facility] Comment on above: Performed By: #### L 100.0100, L500.4050 ####[facility] [address] [place], [address] RBC (Bld) [#/Vol] 3.20 10*6/uL Low 4.6-6.2 [facility] Comment on above: Performed By: #### L 100.0100, L500.4050 ####[facility] [address] [place], [address] RDW SD 47.8 fl High 35.1-43.9 [facility] Comment on above: Performed By: #### L 100.0100, L500.4050 ####[facility] [address] [place], [address] WBC (Bld) [#/Vol] 6.2 10*3/uL Normal 4.4-11.0 [facility] Comment on above: Performed By: #### L 100.0100, L500.4050 ####[facility] [address] [place], [address] CBC-Complete Blood Cnt No Di ffon 01-25-2024 Erythrocyte distribution width (RBC) [Ratio] 14.4 % Normal 11.6-14.6 [facility] Comment on above: Order Comment: Comme nts: please redraw Performed By: #### L 100.0500 ####[facility] [address] [place], [address] Hematocrit (Bld) [Volume fraction] 41.6 % Normal 40-54 [facility] Comment on above: Order Comment: Comme nts: please redraw Performed By: #### L 100.0500 ####[facility] [address] [place], [address] Hemoglobin (Bld) [Mass/Vol] 13.4 g/dL Normal 13.0-16.5 [facility] Comment on above: Order Comment: Comme nts: please redraw Performed By: #### L 100.0500 ####[facility] [address] [place], [address] MCH (RBC) [Entitic mass] 30.2 pg Normal 27.0-32.0 [facility] Comment on above: Order Comment: Comme nts: please redraw Performed By: #### L 100.0500 ####[facility] [address] [place], [address] MCHC (RBC) [Mass/Vol] 32.2 g/dL Normal 32-36 [facility] Comment on above: Order Comment: Comme nts: please redraw Performed By: #### L 100.0500 ####[facility] [address] [place], [address] MCV (RBC) [Entitic vol] 93.9 fL Normal 80-94 [facility] Comment on above: Order Comment: Comme nts: please redraw Performed By: #### L 100.0500 ####[facility] [address] [place], [address] Platelet mean volume (Bld) [Entitic vol] 10.3 fL Normal 6.2-12.0 [facility] Comment on above: Order Comment: Comme nts: please redraw Performed By: #### L 100.0500 ####[facility] [address] [place], [address] Platelets (Bld) [#/Vol] 199 10*3/uL Normal 150-450 [facility] Comment on above: Order Comment: Comme nts: please redraw Performed By: #### L 100.0500 ####[facility] [address] [place], [address] RBC (Bld) [#/Vol] 4.43 10*6/uL Low 4.6-6.2 [facility] Comment on above: Order Comment: Comme nts: please redraw Performed By: #### L 100.0500 ####[facility] [address] [place], [address] RDW SD 49.3 fl High 35.1-43.9 [facility] Comment on above: Order Comment: Comme nts: please redraw Performed By: #### L 100.0500 ####[facility] [address] [place], [address] WBC (Bld) [#/Vol] 9.2 10*3/uL Normal 4.4-11.0 [facility] Comment on above: Order Comment: Comme nts: please redraw Performed By: #### L 100.0500 ####[facility] [address] [place], [address] Comprehensive Metabolic Prof ilon 01-25-2024 Albumin [Mass/Vol] 3.0 g/dL Low 3.2-5.0 [facility] Comment on above: Order Comment: pleas e redraw Performed By: #### L 500.4050 ####[facility] [address] [place], [address] Albumin/Globulin [Mass ratio] 0.6 {ratio} Low 0.9-2.4 [facility] Comment on above: Order Comment: pleas e redraw Performed By: #### L 500.4050 ####[facility] [address] [place], [address] ALK P 198 U/L High 45-117 [facility] Comment on above: Order Comment: pleas e redraw Performed By: #### L 500.4050 ####[facility] [address] [place], [address] ALT [Catalytic activity/Vol] 29 U/L Normal 16-61 [facility] Comment on above: Order Comment: pleas e redraw Performed By: #### L 500.4050 ####[facility] [address] [place], [address] AST [Catalytic activity/Vol] 49 U/L High 15-37 [facility] Comment on above: Order Comment: pleas e redraw Performed By: #### L 500.4050 ####[facility] [address] [place], [address] Bilirubin [Mass/Vol] 0.70 mg/dL Normal 0.20-1.00 [facility] Comment on above: Order Comment: pleas e redraw Result Comment: For patients on eltrombopag therapy, use of Dimension [place] TBIL is not recommended. Performed By: #### L 500.4050 ####[facility] [address] [place], [address] BUN/CRE 11.3 RATIO Normal 10-20 [facility] Comment on above: Order Comment: pleas e redraw Performed By: #### L 500.4050 ####[facility] [address] [place], [address] CA,Total 9.1 mg/dL Normal 8.5-10.1 [facility] Comment on above: Order Comment: pleas e redraw Performed By: #### L 500.4050 ####[facility] [address] [place], [address] Chloride [Moles/Vol] 107 mmol/L Normal 98-107 [facility] Comment on above: Order Comment: pleas e redraw Performed By: #### L 500.4050 ####[facility] [address] [place], [address] CO2 [Moles/Vol] 22.0 mmol/L Normal 21.0-32.0 [facility] Comment on above: Order Comment: pleas e redraw Performed By: #### L 500.4050 ####[facility] [address] [place], [address] Creatinine [Mass/Vol] 0.97 mg/dL Normal 0.70-1.30 [facility] Comment on above: Order Comment: pleas e redraw Result Comment: The validity of the calculated GFR GFRAA in patients over70 years has not been determined. Clinical correlation isessential. Performed By: #### L 500.4050 ####[facility] [address] [place], [address] ECRCL 78.48 ml/min Normal [facility] Comment on above: Order Comment: pleas e redraw Performed By: #### L 500.4050 ####[facility] [address] [place], [address] EST GFR - AA 96 mL/min Normal >60 [facility] Comment on above: Order Comment: pleas e redraw Result Comment: Afri can Maltese GFR Calc Performed By: #### L 500.4050 ####[facility] [address] [place], [address] GAP 7 Normal 5-15 [facility] Comment on above: Order Comment: pleas e redraw Performed By: #### L 500.4050 ####[facility] [address] [place], [address] GFR/1.73 sq M.predicted among non-blacks MDRD (S/P/Bld) [Vol rate/Area] 79 mL/min/{1.73_m2} Normal >60 [facility] Comment on above: Order Comment: pleas e redraw Result Comment: Non- GFR Calc Performed By: #### L 500.4050 ####[facility] [address] [place], [address] Globulin (S) [Mass/Vol] 4.7 g/dL High 2.2-4.2 [facility] Comment on above: Order Comment: pleas e redraw Performed By: #### L 500.4050 ####[facility] [address] [place], [address] Glucose [Mass/Vol] 120 mg/dL High 74-106 [facility] Comment on above: Order Comment: pleas e redraw Result Comment: Fast ing Glucose result from 100 to 125 mg/dLsuggests IMPAIRED HOMEOSTASIS per A.D.A. criteria. Performed By: #### L 500.4050 ####[facility] [address] [place], [address] Potassium [Moles/Vol] 4.0 mmol/L Normal 3.5-5.1 [facility] Comment on above: Order Comment: pleas e redraw Performed By: #### L 500.4050 ####[facility] [address] [place], [address] Sodium [Moles/Vol] 136 mmol/L Normal 136-145 [facility] Comment on above: Order Comment: pleas e redraw Performed By: #### L 500.4050 ####[facility] [address] [place], [address] T PROT 7.7 g/dL Normal 6.4-8.2 [facility] Comment on above: Order Comment: pleas e redraw Performed By: #### L 500.4050 ####[facility] [address] [place], [address] Urea nitrogen [Mass/Vol] 11 mg/dL Normal 7-18 [facility] Comment on above: Order Comment: pleas e redraw Performed By: #### L 500.4050 ####[facility] [address] [place], [address] Albumin [Mass/Vol] 1.9 g/dL Low 3.2-5.0 [facility] Comment on above: Performed By: #### L 100.0100, L500.4050 ####[facility] [address] [place], [address] Albumin/Globulin [Mass ratio] 0.7 {ratio} Low 0.9-2.4 [facility] Comment on above: Performed By: #### L 100.0100, L500.4050 ####[facility] [address] [place], [address] ALK P 122 U/L High 45-117 [facility] Comment on above: Performed By: #### L 100.0100, L500.4050 ####[facility] [address] [place], [address] ALT [Catalytic activity/Vol] 15 U/L Low 16-61 [facility] Comment on above: Performed By: #### L 100.0100, L500.4050 ####[facility] [address] [place], [address] AST [Catalytic activity/Vol] 29 U/L Normal 15-37 [facility] Comment on above: Performed By: #### L 100.0100, L500.4050 ####[facility] [address] [place], [address] Bilirubin [Mass/Vol] 0.40 mg/dL Normal 0.20-1.00 [facility] Comment on above: Result Comment: For patients on eltrombopag therapy, use of Dimension [place] TBIL is not recommended. Performed By: #### L 100.0100, L500.4050 ####[facility] [address] [place], [address] BUN/CRE 12.3 RATIO Normal 10-20 [facility] Comment on above: Performed By: #### L 100.0100, L500.4050 ####[facility] [address] [place], [address] CA,Total 5.8 mg/dL Invalid Interpretation Code 8.5-10.1 [facility] Comment on above: Result Comment: Crit ical Result(s) Called at: 06:43:33 01/25/2024 by:Keli Fuller. Results read back by same. Performed By: #### L 100.0100, L500.4050 ####[facility] [address] [place], [address] Chloride [Moles/Vol] 119 mmol/L High 98-107 [facility] Comment on above: Performed By: #### L 100.0100, L500.4050 ####[facility] [address] [place], [address] CO2 [Moles/Vol] 22.0 mmol/L Normal 21.0-32.0 [facility] Comment on above: Performed By: #### L 100.0100, L500.4050 ####[facility] [address] [place], [address] Creatinine [Mass/Vol] 0.65 mg/dL Low 0.70-1.30 [facility] Comment on above: Result Comment: The validity of the calculated GFR GFRAA in patients over70 years has not been determined. Clinical correlation isessential. Performed By: #### L 100.0100, L500.4050 ####[facility] [address] [place], [address] ECRCL 95.15 ml/min Normal [facility] Comment on above: Performed By: #### L 100.0100, L500.4050 ####[facility] [address] [place], [address] EST GFR - AA 153 mL/min Normal >60 [facility] Comment on above: Result Comment: Afri can Maltese GFR Calc Performed By: #### L 100.0100, L500.4050 ####[facility] [address] [place], [address] GAP 4 Low 5-15 [facility] Comment on above: Performed By: #### L 100.0100, L500.4050 ####[facility] [address] [place], [address] GFR/1.73 sq M.predicted among non-blacks MDRD (S/P/Bld) [Vol rate/Area] 127 mL/min/{1.73_m2} Normal >60 [facility] Comment on above: Result Comment: Non- GFR Calc Performed By: #### L 100.0100, L500.4050 ####[facility] [address] [place], [address] Globulin (S) [Mass/Vol] 2.8 g/dL Normal 2.2-4.2 [facility] Comment on above: Performed By: #### L 100.0100, L500.4050 ####[facility] [address] [place], [address] Glucose [Mass/Vol] 81 mg/dL Normal 74-106 [facility] Comment on above: Performed By: #### L 100.0100, L500.4050 ####[facility] [address] [place], [address] Potassium [Moles/Vol] 2.6 mmol/L Invalid Interpretation Code 3.5-5.1 [facility] Comment on above: Result Comment: Crit ical Result(s) Called at: 06:43:33 01/25/2024 by:Keli Naranjo to [facility]. Results read back by same. Performed By: #### L 100.0100, L500.4050 ####[facility] [address] [place], [address] Sodium [Moles/Vol] 145 mmol/L Normal 136-145 [facility] Comment on above: Performed By: #### L 100.0100, L500.4050 ####[facility] [address] [place], [address] T PROT 4.7 g/dL Low 6.4-8.2 [facility] Comment on above: Performed By: #### L 100.0100, L500.4050 ####[facility] [address] [place], [address] Urea nitrogen [Mass/Vol] 8 mg/dL Normal 7-18 [facility] Comment on above: Performed By: #### L 100.0100, L500.4050 ####[facility] [address] [place], [address] Partial Thromboplast Timeon 01-25-2024 aPTT Coag (Bld) [Time] 69.4 s High 24.1-36.2 [facility] Comment on above: Performed By: #### L 300.4310 ####[facility] [address] [place], [address] aPTT Coag (Bld) [Time] 50.4 s High 24.1-36.2 [facility] Comment on above: Order Comment: Comme nts: heparin gtt Performed By: #### L 300.4310 ####[facility] [address] [place], [address] aPTT Coag (Bld) [Time] 76.7 s High 24.1-36.2 [facility] Comment on above: Order Comment: Comme nts: heparin gtt Performed By: #### L 300.4310 ####[facility] [address] [place], [address] Prothrombin Time w/INRon INR Coag (PPP) [Relative time] 3.0 {INR} Normal [facility] Comment on above: Performed By: #### L 300.3900 ####[facility] [address] [place], [address] PT Coag (PPP) [Time] 31.1 s High 11.7-14.9 [facility] Comment on above: Performed By: #### L 300.3900 ####[facility] [address] [place], [address] Respiratory Cultureon 2023 RESPC Normal [facility] Comment on above: Performed By: #### M 100.2400, M100.2000 ####[facility] [address] [place], [address] Special CXR (Obl/Decub/A/L)o n 01-25-2024 Special CXR (Obl/Decub/A/L) Normal [facility] 12 Lead EKGon 01-24-2024 12 Lead EKG Normal [facility] CBC W/Diff, Automatedon 01-03 Absolute Lymph 0.57 X10 3/uL Low 0.83-4.51 [facility] Comment on above: Performed By: #### L 500.4050, L100.0100 ####[facility] [address] [place], [address] Absolute Neut 5.7 X10 3/uL Normal 2.0-7.7 [facility] Comment on above: Performed By: #### L 500.4050, L100.0100 ####[facility] [address] [place], [address] Basophils/100 WBC (Bld) 0.7 % Normal 0-1 [facility] Comment on above: Performed By: #### L 500.4050, L100.0100 ####[facility] [address] [place], [address] Eosinophils/100 WBC (Bld) 4.7 % Normal 0-5 [facility] Comment on above: Performed By: #### L 500.4050, L100.0100 ####[facility] [address] [place], [address] Erythrocyte distribution width (RBC) [Ratio] 14.1 % Normal 11.6-14.6 [facility] Comment on above: Performed By: #### L 500.4050, L100.0100 ####[facility] [address] [place], [address] Hematocrit (Bld) [Volume fraction] 37.1 % Low 40-54 [facility] Comment on above: Performed By: #### L 500.4050, L100.0100 ####[facility] [address] [place], [address] Hemoglobin (Bld) [Mass/Vol] 11.9 g/dL Low 13.0-16.5 [facility] Comment on above: Performed By: #### L 500.4050, L100.0100 ####[facility] [address] [place], [address] IG% 0.600 Normal 0.0-0.9 [facility] Comment on above: Result Comment: IG% - Immature Granulocytes (promyelocytes, myelocytes andmetamyelocytes) > 1% indicates that a LEFT SHIFT is Present. Performed By: #### L 500.4050, L100.0100 ####[facility] [address] [place], [address] Lymphocytes/100 WBC (Bld) 7.1 % Low 19-41 [facility] Comment on above: Performed By: #### L 500.4050, L100.0100 ####[facility] [address] [place], [address] MCH (RBC) [Entitic mass] 29.8 pg Normal 27.0-32.0 [facility] Comment on above: Performed By: #### L 500.4050, L100.0100 ####[facility] [address] [place], [address] MCHC (RBC) [Mass/Vol] 32.1 g/dL Normal 32-36 [facility] Comment on above: Performed By: #### L 500.4050, L100.0100 ####[facility] [address] [place], [address] MCV (RBC) [Entitic vol] 93.0 fL Normal 80-94 [facility] Comment on above: Performed By: #### L 500.4050, L100.0100 ####[facility] [address] [place], [address] Monocytes/100 WBC (Bld) 16.0 % High 0-10 [facility] Comment on above: Performed By: #### L 500.4050, L100.0100 ####[facility] [address] [place], [address] Neutrophils/100 WBC (Bld) 70.9 % High 47-70 [facility] Comment on above: Performed By: #### L 500.4050, L100.0100 ####[facility] [address] [place], [address] Nucleated RBC (Bld) [#/Vol] 0 10*3/uL Normal 0-5 [facility] Comment on above: Performed By: #### L 500.4050, L100.0100 ####[facility] [address] [place], [address] Platelet mean volume (Bld) [Entitic vol] 10.3 fL Normal 6.2-12.0 [facility] Comment on above: Performed By: #### L 500.4050, L100.0100 ####[facility] [address] [place], [address] Platelets (Bld) [#/Vol] 163 10*3/uL Normal 150-450 [facility] Comment on above: Performed By: #### L 500.4050, L100.0100 ####[facility] [address] [place], [address] RBC (Bld) [#/Vol] 3.99 10*6/uL Low 4.6-6.2 [facility] Comment on above: Performed By: #### L 500.4050, L100.0100 ####[facility] [address] [place], [address] RDW SD 47.8 fl High 35.1-43.9 [facility] Comment on above: Performed By: #### L 500.4050, L100.0100 ####[facility] [address] [place], [address] WBC (Bld) [#/Vol] 8.1 10*3/uL Normal 4.4-11.0 [facility] Comment on above: Performed By: #### L 500.4050, L100.0100 ####[facility] [address] [place], [address] Comprehensive [facility] Prof [facility] 01-[facility]-2024 Albumin [Mass/Vol] 2.9 g/dL Low 3.2-5.0 [facility] Comment on above: Performed By: #### L 500.4050, L100.0100 ####[facility] [address] [place], [address] Albumin/Globulin [Mass ratio] 0.7 {ratio} Low 0.9-2.4 [facility] Comment on above: Performed By: #### L 500.4050, L100.0100 ####[facility] [address] [place], [address] ALK P 174 U/L High 45-117 [facility] Comment on above: Performed By: #### L 500.4050, L100.0100 ####[facility] [address] [place], [address] ALT [Catalytic activity/Vol] 28 U/L Normal 16-61 [facility] Comment on above: Performed By: #### L 500.4050, L100.0100 ####[facility] [address] [place], [address] AST [Catalytic activity/Vol] 46 U/L High 15-37 [facility] Comment on above: Performed By: #### L 500.4050, L100.0100 ####[facility] [address] [place], [address] Bilirubin [Mass/Vol] 0.80 mg/dL Normal 0.20-1.00 [facility] Comment on above: Result Comment: For patients on eltrombopag therapy, use of Dimension [place] TBIL is not recommended. Performed By: #### L 500.4050, L100.0100 ####[facility] [address] [place], [address] BUN/CRE 15.1 RATIO Normal 10-20 [facility] Comment on above: Performed By: #### L 500.4050, L100.0100 ####[facility] [address] [place], [address] CA,Total 8.6 mg/dL Normal 8.5-10.1 [facility] Comment on above: Performed By: #### L 500.4050, L100.0100 ####[facility] [address] [place], [address] Chloride [Moles/Vol] 105 mmol/L Normal 98-107 [facility] Comment on above: Performed By: #### L 500.4050, L100.0100 ####[facility] [address] [place], [address] CO2 [Moles/Vol] 25.0 mmol/L Normal 21.0-32.0 [facility] Comment on above: Performed By: #### L 500.4050, L100.0100 ####[facility] [address] [place], [address] Creatinine [Mass/Vol] 0.93 mg/dL Normal 0.70-1.30 [facility] Comment on above: Result Comment: The validity of the calculated GFR GFRAA in patients over70 years has not been determined. Clinical correlation isessential. Performed By: #### L 500.4050, L100.0100 ####[facility] [address] [place], [address] ECRCL 81.63 ml/min Normal [facility] Comment on above: Performed By: #### L 500.4050, L100.0100 ####[facility] [address] [place], [address] EST GFR - AA 101 mL/min Normal >60 [facility] Comment on above: Result Comment: Afri can Maltese GFR Calc Performed By: #### L 500.4050, L100.0100 ####[facility] [address] [place], [address] GAP 6 Normal 5-15 [facility] Comment on above: Performed By: #### L 500.4050, L100.0100 ####[facility] [address] [place], [address] GFR/1.73 sq M.predicted among non-blacks MDRD (S/P/Bld) [Vol rate/Area] 84 mL/min/{1.73_m2} Normal >60 [facility] Comment on above: Result Comment: Non- GFR Calc Performed By: #### L 500.4050, L100.0100 ####[facility] [address] [place], [address] Globulin (S) [Mass/Vol] 4.2 g/dL Normal 2.2-4.2 [facility] Comment on above: Performed By: #### L 500.4050, L100.0100 ####[facility] [address] [place], [address] Glucose [Mass/Vol] 105 mg/dL Normal 74-106 [facility] Comment on above: Result Comment: Fast ing Glucose result from 100 to 125 mg/dLsuggests IMPAIRED HOMEOSTASIS per A.D.A. criteria. Performed By: #### L 500.4050, L100.0100 ####[facility] [address] [place], [address] Potassium [Moles/Vol] 3.9 mmol/L Normal 3.5-5.1 [facility] Comment on above: Performed By: #### L 500.4050, L100.0100 ####[facility] [address] [place], [address] Sodium [Moles/Vol] 136 mmol/L Normal 136-145 [facility] Comment on above: Performed By: #### L 500.4050, L100.0100 ####[facility] [address] [place], [address] T PROT 7.1 g/dL Normal 6.4-8.2 [facility] Comment on above: Performed By: #### L 500.4050, L100.0100 ####[facility] [address] [place], [address] Urea nitrogen [Mass/Vol] 14 mg/dL Normal 7-18 [facility] Comment on above: Performed By: #### L 500.4050, L100.0100 ####[facility] [address] [place], [address] Echo Transesophageal (FER)on 01-24-2024 Echo Transesophageal (FER) Normal [facility] Partial Thromboplast Timeon 01-24-2024 aPTT Coag (Bld) [Time] 84.9 s High 24.1-36.2 [facility] Comment on above: Performed By: #### L 300.4310 ####[facility] [address] [place], [address] aPTT Coag (Bld) [Time] 67.3 s High 24.1-36.2 [facility] Comment on above: Performed By: #### L 300.4310 ####[facility] [address] [place], [address] aPTT Coag (Bld) [Time] 90.9 s Invalid Interpretation Code 24.1-36.2 [facility] Comment on above: Result Comment: CRIT ICAL VALUE VERIFIED. CALLED TO [id number]/22/24 0619 Mason Reyes.RESULTS READ BACK BY SAME. Performed By: #### L 300.4310, L300.3900 ####[facility] [address] [place], [address] Prothrombin Time w/INRon INR Coag (PPP) [Relative time] 2.8 {INR} Normal [facility] Comment on above: Performed By: #### L 300.4310, L300.3900 ####[facility] [address] [place], [address] PT Coag (PPP) [Time] 29.0 s High 11.7-14.9 [facility] Comment on above: Performed By: #### L 300.4310, L300.3900 ####[facility] [address] [place], [address] INR Normal [facility] Comment on above: Result Comment: Stacy eagle via OM: Ordered Performed By: #### L 300.3900 ####[facility] [address] [place], [address] PROTIME Normal 11.7-14.9 [facility] Comment on above: Result Comment: Stacy eagle via OM: Ordered Performed By: #### L 300.3900 ####[facility] [address] [place], [address] CBC W/Diff, Automatedon 01-03 Absolute Lymph 0.60 X10 3/uL Low 0.83-4.51 [facility] Comment on above: Performed By: #### L 100.0100, L500.4050 ####[facility] [address] [place], [address] Absolute Neut 7.1 X10 3/uL Normal 2.0-7.7 [facility] Comment on above: Performed By: #### L 100.0100, L500.4050 ####[facility] [address] [place], [address] Basophils/100 WBC (Bld) 0.6 % Normal 0-1 [facility] Comment on above: Performed By: #### L 100.0100, L500.4050 ####[facility] [address] [place], [address] Eosinophils/100 WBC (Bld) 3.5 % Normal 0-5 [facility] Comment on above: Performed By: #### L 100.0100, L500.4050 ####[facility] [address] [place], [address] Erythrocyte distribution width (RBC) [Ratio] 14.1 % Normal 11.6-14.6 [facility] Comment on above: Performed By: #### L 100.0100, L500.4050 ####[facility] [address] [place], [address] Hematocrit (Bld) [Volume fraction] 37.1 % Low 40-54 [facility] Comment on above: Performed By: #### L 100.0100, L500.4050 ####[facility] [address] [place], [address] Hemoglobin (Bld) [Mass/Vol] 12.1 g/dL Low 13.0-16.5 [facility] Comment on above: Performed By: #### L 100.0100, L500.4050 ####[facility] [address] [place], [address] IG% 0.600 Normal 0.0-0.9 [facility] Comment on above: Result Comment: IG% - Immature Granulocytes (promyelocytes, myelocytes andmetamyelocytes) > 1% indicates that a LEFT SHIFT is Present. Performed By: #### L 100.0100, L500.4050 ####[facility] [address] [place], [address] Lymphocytes/100 WBC (Bld) 6.5 % Low 19-41 [facility] Comment on above: Performed By: #### L 100.0100, L500.4050 ####[facility] [address] [place], [address] MCH (RBC) [Entitic mass] 30.1 pg Normal 27.0-32.0 [facility] Comment on above: Performed By: #### L 100.0100, L500.4050 ####[facility] [address] [place], [address] MCHC (RBC) [Mass/Vol] 32.6 g/dL Normal 32-36 [facility] Comment on above: Performed By: #### L 100.0100, L500.4050 ####[facility] [address] [place], [address] MCV (RBC) [Entitic vol] 92.3 fL Normal 80-94 [facility] Comment on above: Performed By: #### L 100.0100, L500.4050 ####[facility] [address] [place], [address] Monocytes/100 WBC (Bld) 12.2 % High 0-10 [facility] Comment on above: Performed By: #### L 100.0100, L500.4050 ####[facility] [address] [place], [address] Neutrophils/100 WBC (Bld) 76.6 % High 47-70 [facility] Comment on above: Performed By: #### L 100.0100, L500.4050 ####[facility] [address] [place], [address] Nucleated RBC (Bld) [#/Vol] 0 10*3/uL Normal 0-5 [facility] Comment on above: Performed By: #### L 100.0100, L500.4050 ####[facility] [address] [place], [address] Platelet mean volume (Bld) [Entitic vol] 10.0 fL Normal 6.2-12.0 [facility] Comment on above: Performed By: #### L 100.0100, L500.4050 ####[facility] [address] [place], [address] Platelets (Bld) [#/Vol] 163 10*3/uL Normal 150-450 [facility] Comment on above: Performed By: #### L 100.0100, L500.4050 ####[facility] [address] [place], [address] RBC (Bld) [#/Vol] 4.02 10*6/uL Low 4.6-6.2 [facility] Comment on above: Performed By: #### L 100.0100, L500.4050 ####[facility] [address] [place], [address] RDW SD 47.9 fl High 35.1-43.9 [facility] Comment on above: Performed By: #### L 100.0100, L500.4050 ####[facility] [address] [place], [address] WBC (Bld) [#/Vol] 9.3 10*3/uL Normal 4.4-11.0 [facility] Comment on above: Performed By: #### L 100.0100, L500.4050 ####[facility] [address] [place], [address] Comprehensive Metabolic Prof annette 01-23-2024 Albumin [Mass/Vol] 3.0 g/dL Low 3.2-5.0 [facility] Comment on above: Performed By: #### L 100.0100, L500.4050 ####[facility] [address] [place], [address] Albumin/Globulin [Mass ratio] 0.7 {ratio} Low 0.9-2.4 [facility] Comment on above: Performed By: #### L 100.0100, L500.4050 ####[facility] [address] [place], [address] ALK P 169 U/L High 45-117 [facility] Comment on above: Performed By: #### L 100.0100, L500.4050 ####[facility] [address] [place], [address] ALT [Catalytic activity/Vol] 32 U/L Normal 16-61 [facility] Comment on above: Performed By: #### L 100.0100, L500.4050 ####[facility] [address] [place], [address] AST [Catalytic activity/Vol] 43 U/L High 15-37 [facility] Comment on above: Performed By: #### L 100.0100, L500.4050 ####[facility] [address] [place], [address] Bilirubin [Mass/Vol] 0.90 mg/dL Normal 0.20-1.00 [facility] Comment on above: Result Comment: For patients on eltrombopag therapy, use of Dimension [place] TBIL is not recommended. Performed By: #### L 100.0100, L500.4050 ####[facility] [address] [place], [address] BUN/CRE 15.4 RATIO Normal 10-20 [facility] Comment on above: Performed By: #### L 100.0100, L500.4050 ####[facility] [address] [place], [address] CA,Total 8.7 mg/dL Normal 8.5-10.1 [facility] Comment on above: Performed By: #### L 100.0100, L500.4050 ####[facility] [address] [place], [address] Chloride [Moles/Vol] 104 mmol/L Normal 98-107 [facility] Comment on above: Performed By: #### L 100.0100, L500.4050 ####[facility] [address] [place], [address] CO2 [Moles/Vol] 25.0 mmol/L Normal 21.0-32.0 [facility] Comment on above: Performed By: #### L 100.0100, L500.4050 ####[facility] [address] [place], [address] Creatinine [Mass/Vol] 1.04 mg/dL Normal 0.70-1.30 [facility] Comment on above: Result Comment: The validity of the calculated GFR GFRAA in patients over70 years has not been determined. Clinical correlation isessential. Performed By: #### L 100.0100, L500.4050 ####[facility] [address] [place], [address] ECRCL 72.60 ml/min Normal [facility] Comment on above: Performed By: #### L 100.0100, L500.4050 ####[facility] [address] [place], [address] EST GFR - AA 89 mL/min Normal >60 [facility] Comment on above: Result Comment: Afri can Maltese GFR Calc Performed By: #### L 100.0100, L500.4050 ####[facility] [address] [place], [address] GAP 5 Normal 5-15 [facility] Comment on above: Performed By: #### L 100.0100, L500.4050 ####[facility] [address] [place], [address] GFR/1.73 sq M.predicted among non-blacks MDRD (S/P/Bld) [Vol rate/Area] 73 mL/min/{1.73_m2} Normal >60 [facility] Comment on above: Result Comment: Non- GFR Calc Performed By: #### L 100.0100, L500.4050 ####[facility] [address] [place], [address] Globulin (S) [Mass/Vol] 4.2 g/dL Normal 2.2-4.2 [facility] Comment on above: Performed By: #### L 100.0100, L500.4050 ####[facility] [address] [place], [address] Glucose [Mass/Vol] 113 mg/dL High 74-106 [facility] Comment on above: Result Comment: Fast ing Glucose result from 100 to 125 mg/dLsuggests IMPAIRED HOMEOSTASIS per A.D.A. criteria. Performed By: #### L 100.0100, L500.4050 ####[facility] [address] [place], [address] Potassium [Moles/Vol] 3.9 mmol/L Normal 3.5-5.1 [facility] Comment on above: Performed By: #### L 100.0100, L500.4050 ####[facility] [address] [place], [address] Sodium [Moles/Vol] 134 mmol/L Low 136-145 [facility] Comment on above: Performed By: #### L 100.0100, L500.4050 ####[facility] [address] [place], [address] T PROT 7.2 g/dL Normal 6.4-8.2 [facility] Comment on above: Performed By: #### L 100.0100, L500.4050 ####[facility] [address] [place], [address] Urea nitrogen [Mass/Vol] 16 mg/dL Normal 7-18 [facility] Comment on above: Performed By: #### L 100.0100, L500.4050 ####[facility] [address] [place], [address] Consultation - Intensiviston 01-23-2024 Consultation - Cross Roller Normal [facility] Partial Thromboplast Timeon 01-23-2024 aPTT Coag (Bld) [Time] 222.8 s Invalid Interpretation Code 24.1-36.2 [facility] Comment on above: Order Comment: Comme nts: heparin gtt Result Comment: CRIT ICAL VALUE VERIFIED. CALLED TO A [id number] Shira Yang.RESULTS READ BACK BY SAME. Performed By: #### L 300.4310 ####[facility] [address] [place], [address] aPTT Coag (Bld) [Time] 43.8 s High 24.1-36.2 [facility] Comment on above: Performed By: #### L 300.4310 ####[facility] [address] [place], [address] Prothrombin Time w/INRon INR Coag (PPP) [Relative time] 2.4 {INR} Normal [facility] Comment on above: Performed By: #### L 300.3900 ####[facility] [address] [place], [address] PT Coag (PPP) [Time] 26.0 s High 11.7-14.9 [facility] Comment on above: Performed By: #### L 300.3900 ####[facility] [address] [place], [address] Vancomycin, Trough Levelon 0 - VANCO, TROUGH 19.2 ug/mL High 5.0-15.0 [facility] Comment on above: Order Comment: Comme nts: Trough to be drawn 30 mins prior to scheduled dose Result Comment: VANC OMYCIN STANDARED DRUG THERAPY TROUGH LEVEL: 5.0 - 15.0 mg/LVANCOMYCIN HIGH INTENSITY THERAPY TROUGH LEVEL: 15.0 - 20.0 mg/LHigh Intensity therapy recommended for serious lifethreatening infections include:- Yegprnbkku-Uwkxjvsfnxpi-Kpsvbahon (Ventilator/Healtcare Associated)-SepsisPLEASE CONTACT PHARMACY SERVICES (#3444) FOR INTERPRETATIONOF RESULTS. Performed By: #### L 501.8820 ####[facility] [address] [place], [address] Basic Metabolic Profile (BMP )on 01-22-2024 BUN/CRE 17.3 RATIO Normal - [facility] Comment on above: Performed By: #### L 500.2500, L300.3900, L100.0100 ####[facility] [address] [place], [address] CA,Total 8.7 mg/dL Normal 8.5-10.1 [facility] Comment on above: Performed By: #### L 500.2500, L300.3900, L100.0100 ####[facility] [address] [place], [address] Chloride [Moles/Vol] 104 mmol/L Normal 98-107 [facility] Comment on above: Performed By: #### L 500.2500, L300.3900, L100.0100 ####[facility] [address] [place], [address] CO2 [Moles/Vol] 22.0 mmol/L Normal 21.0-32.0 [facility] Comment on above: Performed By: #### L 500.2500, L300.3900, L100.0100 ####[facility] [address] [place], [address] Creatinine [Mass/Vol] 1.10 mg/dL Normal 0.70-1.30 [facility] Comment on above: Result Comment: The validity of the calculated GFR GFRAA in patients over70 years has not been determined. Clinical correlation isessential. Performed By: #### L 500.2500, L300.3900, L100.0100 ####[facility] [address] [place], [address] ECRCL 68.42 ml/min Normal [facility] Comment on above: Performed By: #### L 500.2500, L300.3900, L100.0100 ####[facility] [address] [place], [address] EST GFR - AA 83 mL/min Normal >60 [facility] Comment on above: Result Comment: Afri can Maltese GFR Calc Performed By: #### L 500.2500, L300.3900, L100.0100 ####[facility] [address] [place], [address] GAP 7 Normal 5-15 [facility] Comment on above: Performed By: #### L 500.2500, L300.3900, L100.0100 ####[facility] [address] [place], [address] GFR/1.73 sq M.predicted among non-blacks MDRD (S/P/Bld) [Vol rate/Area] 69 mL/min/{1.73_m2} Normal >60 [facility] Comment on above: Result Comment: Non- GFR Calc Performed By: #### L 500.2500, L300.3900, L100.0100 ####[facility] [address] [place], [address] Glucose [Mass/Vol] 102 mg/dL Normal 74-106 [facility] Comment on above: Result Comment: Fast ing Glucose result from 100 to 125 mg/dLsuggests IMPAIRED HOMEOSTASIS per A.D.A. criteria. Performed By: #### L 500.2500, L300.3900, L100.0100 ####[facility] [address] [place], [address] Potassium [Moles/Vol] 4.2 mmol/L Normal 3.5-5.1 [facility] Comment on above: Performed By: #### L 500.2500, L300.3900, L100.0100 ####[facility] [address] [place], [address] Sodium [Moles/Vol] 133 mmol/L Low 136-145 [facility] Comment on above: Performed By: #### L 500.2500, L300.3900, L100.0100 ####[facility] [address] [place], [address] Urea nitrogen [Mass/Vol] 19 mg/dL High 7-18 [facility] Comment on above: Performed By: #### L 500.2500, L300.3900, L100.0100 ####[facility] [address] [place], [address] CBC W/Diff, Automatedon 01-03 PATH REV May foll Normal [facility] Comment on above: Performed By: #### L 500.2500, L300.3900, L100.0100 ####[facility] [address] [place], [address] Chest 1 View (Portable)on Chest 1 View (Portable) Normal [facility] Consultation - Infectious Dx on 01-22-2024 Consultation - Infectious Dx Normal [facility] Culture, Blood (WB)on 2023 CUB Normal [facility] Comment on above: Performed By: #### M 200.1000, M100.636 ####[facility] [address] [place], [address] Gram Stainon 01-22-2024 GS Not obtained in 1 hr , induce w/nebulized 0.9% NaCL Acceptable Specimen? Yes (<25 Epithelial cells per/lpf) Gram Stain 3+ White Blood Cells No organisms seen Normal [facility] Comment on above: Performed By: #### M 100.2400, M100.2000 ####[facility] [address] [place], [address] LDHon 01-22-2024 LDH 349 U/L High 87-241 [facility] Comment on above: Performed By: #### L 504.2610, L500.3400 ####[facility] [address] [place], [address] Legionella Antigen Urineon 0 01-22-2024 LEGU Normal [facility] Comment on above: Performed By: #### M 300.4500, M300.4600 ####[facility] [address] [place], [address] Liver Profileon 01-22-2024 Albumin [Mass/Vol] 1.7 g/dL Low 3.2-5.0 [facility] Comment on above: Performed By: #### L 504.2610, L500.3400 ####[facility] [address] [place], [address] ALK P 186 U/L High 45-117 [facility] Comment on above: Performed By: #### L 504.2610, L500.3400 ####[facility] [address] [place], [address] ALT [Catalytic activity/Vol] 41 U/L Normal 16-61 [facility] Comment on above: Performed By: #### L 504.2610, L500.3400 ####[facility] [address] [place], [address] AST [Catalytic activity/Vol] 65 U/L High 15-37 [facility] Comment on above: Performed By: #### L 504.2610, L500.3400 ####[facility] [address] [place], [address] Bilirubin [Mass/Vol] 1.20 mg/dL High 0.20-1.00 [facility] Comment on above: Result Comment: For patients on eltrombopag therapy, use of Dimension [place] TBIL is not recommended. Performed By: #### L 504.2610, L500.3400 ####[facility] [address] [place], [address] Bilirubin.direct [Mass/Vol] 0.59 mg/dL High 0.00-0.30 [facility] Comment on above: Performed By: #### L 504.2610, L500.3400 ####[facility] [address] [place], [address] Globulin (S) [Mass/Vol] 5.1 g/dL High 2.2-4.2 [facility] Comment on above: Performed By: #### L 504.2610, L500.3400 ####[facility] [address] [place], [address] T PROT 6.8 g/dL Normal 6.4-8.2 [facility] Comment on above: Performed By: #### L 504.2610, L500.3400 ####[facility] [address] [place], [address] M R Staph Aureus DNA by PCRo n 01-22-2024 MRSA DNA ASSAY Negative Normal Negative [facility] Comment on above: Performed By: #### L 8200.1000 ####[facility] [address] [place], [address] Prothrombin Time w/INRon INR Coag (PPP) [Relative time] 2.5 {INR} Normal [facility] Comment on above: Performed By: #### L 500.2500, L300.3900, L100.0100 ####[facility] [address] [place], [address] PT Coag (PPP) [Time] 26.6 s High 11.7-14.9 [facility] Comment on above: Performed By: #### L 500.2500, L300.3900, L100.0100 ####[facility] [address] [place], [address] Strep pneumoniae Antig(UR,CS F)on 01-22-2024 STPAG Normal [facility] Comment on above: Performed By: #### M 300.4500, M300.4600 ####[facility] [address] [place], [address] 12 Lead EKGon 01-21-2024 12 Lead EKG Normal [facility] 12 Lead EKG Normal [facility] Basic Metabolic Profile (BMP )on 01-21-2024 BUN/CRE 18.3 RATIO Normal - [facility] Comment on above: Order Comment: 'TROP ' Serial specimen #1, #2 or #3: 1 Performed By: #### L 500.2500, L501.4020, L300.3900, L100.0100 ####[facility] [address] [place], [address] CA,Total 8.8 mg/dL Normal 8.5-10.1 [facility] Comment on above: Order Comment: 'TROP ' Serial specimen #1, #2 or #3: 1 Performed By: #### L 500.2500, L501.4020, L300.3900, L100.0100 ####[facility] [address] [place], [address] Chloride [Moles/Vol] 103 mmol/L Normal 98-107 [facility] Comment on above: Order Comment: 'TROP ' Serial specimen #1, #2 or #3: 1 Performed By: #### L 500.2500, L501.4020, L300.3900, L100.0100 ####[facility] [address] [place], [address] CO2 [Moles/Vol] 26.0 mmol/L Normal 21.0-32.0 [facility] Comment on above: Order Comment: 'TROP ' Serial specimen #1, #2 or #3: 1 Performed By: #### L 500.2500, L501.4020, L300.3900, L100.0100 ####[facility] [address] [place], [address] Creatinine [Mass/Vol] 1.04 mg/dL Normal 0.70-1.30 [facility] Comment on above: Order Comment: 'TROP ' Serial specimen #1, #2 or #3: 1 Result Comment: The validity of the calculated GFR GFRAA in patients over70 years has not been determined. Clinical correlation isessential. Performed By: #### L 500.2500, L501.4020, L300.3900, L100.0100 ####[facility] [address] [place], [address] ECRCL 73.23 ml/min Normal [facility] Comment on above: Order Comment: 'TROP ' Serial specimen #1, #2 or #3: 1 Performed By: #### L 500.2500, L501.4020, L300.3900, L100.0100 ####[facility] [address] [place], [address] EST GFR - AA 89 mL/min Normal >60 [facility] Comment on above: Order Comment: 'TROP ' Serial specimen #1, #2 or #3: 1 Result Comment: Afri can Maltese GFR Calc Performed By: #### L 500.2500, L501.4020, L300.3900, L100.0100 ####[facility] [address] [place], [address] GAP 4 Low 5-15 [facility] Comment on above: Order Comment: 'TROP ' Serial specimen #1, #2 or #3: 1 Performed By: #### L 500.2500, L501.4020, L300.3900, L100.0100 ####[facility] [address] [place], [address] GFR/1.73 sq M.predicted among non-blacks MDRD (S/P/Bld) [Vol rate/Area] 73 mL/min/{1.73_m2} Normal >60 [facility] Comment on above: Order Comment: 'TROP ' Serial specimen #1, #2 or #3: 1 Result Comment: Non- GFR Calc Performed By: #### L 500.2500, L501.4020, L300.3900, L100.0100 ####[facility] [address] [place], [address] Glucose [Mass/Vol] 105 mg/dL Normal 74-106 [facility] Comment on above: Order Comment: 'TROP ' Serial specimen #1, #2 or #3: 1 Result Comment: Fast ing Glucose result from 100 to 125 mg/dLsuggests IMPAIRED HOMEOSTASIS per A.D.A. criteria. Performed By: #### L 500.2500, L501.4020, L300.3900, L100.0100 ####[facility] [address] [place], [address] Potassium [Moles/Vol] 4.4 mmol/L Normal 3.5-5.1 [facility] Comment on above: Order Comment: 'TROP ' Serial specimen #1, #2 or #3: 1 Performed By: #### L 500.2500, L501.4020, L300.3900, L100.0100 ####[facility] [address] [place], [address] Sodium [Moles/Vol] 133 mmol/L Low 136-145 [facility] Comment on above: Order Comment: 'TROP ' Serial specimen #1, #2 or #3: 1 Performed By: #### L 500.2500, L501.4020, L300.3900, L100.0100 ####[facility] [address] [place], [address] Urea nitrogen [Mass/Vol] 19 mg/dL High 7-18 [facility] Comment on above: Order Comment: 'TROP ' Serial specimen #1, #2 or #3: 1 Performed By: #### L 500.2500, L501.4020, L300.3900, L100.0100 ####[facility] [address] [place], [address] CBC W/Diff, Automatedon 01-02 SMEAR COMMENT SCANNED Normal [facility] Comment on above: Result Comment: MONO CYTOSIS NOTED Performed By: #### L 500.2500, L501.4020, L300.3900, L100.0100 ####[facility] [address] [place], [address] PATH REV Reviewed Normal [facility] Comment on above: Result Comment: Neut rophilic leukocytosis.Clinical correlation necessary.Tyrell Jimenez M.D. 01/21/24 AMENDED REPORT 01/21/24 1032 PATH REV previously reported as: Jayla page Performed By: #### L 100.0100, L500.2500, L300.4310, L300.3900, L503.6620, L501.4020 ####[facility] [address] [place], [address] Chest 1 View (Portable)on Chest 1 View (Portable) Normal [facility] Echo Completeon 01-21-2024 Echo Complete Normal [facility] Emergency Department Summary on 01-21-2024 Emergency Department Summary Normal [facility] H AND P Exam - Hospitaliston 01-21-2024 H&P Exam - Hospitalist Normal [facility] L501.4020on 01-21-2024 TROPONIN-I HS 7 pg/mL Normal 3.0-78.0 [facility] Comment on above: Order Comment: 'TROP ' Serial specimen #1, #2 or #3: 1 Result Comment: Plea se Note: New Test Units and Gender Specific Reference Ranges. For more information see Policy Stat Procedure [place] High Sensitivity Troponin (TNIH) and attachments. Performed By: #### L 500.2500, L501.4020, L300.3900, L100.0100 ####[facility] [address] [place], [address] Prothrombin Time w/INRon INR Coag (PPP) [Relative time] 2.1 {INR} Normal [facility] Comment on above: Performed By: #### L 500.2500, L501.4020, L300.3900, L100.0100 ####[facility] [address] [place], [address] PT Coag (PPP) [Time] 23.6 s High 11.7-14.9 [facility] Comment on above: Performed By: #### L 500.2500, L501.4020, L300.3900, L100.0100 ####[facility] [address] [place], [address] BC GPC IDon 01-20-2024 BC GPC ID Normal [facility] Comment on above: Performed By: #### M 200.1000, M100.636 ####[facility] [address] [place], [address] 12 Lead EKGon 01-19-2024 12 Lead EKG Normal [facility] BNP,B-Type NATRIURETIC PEPTI Rosa 01-19-2024 Natriuretic peptide B (Bld) [Mass/Vol] 261.0 pg/mL High 0-100 [facility] Comment on above: Performed By: #### L 100.0100, L500.2500, L300.4310, L300.3900, L503.6620, L501.4020 ####[facility] [address] [place], [address] Basic Metabolic Profile (BMP )on 01-19-2024 BUN/CRE 18.7 RATIO Normal 10-20 [facility] Comment on above: Order Comment: 'TROP ' Serial specimen #1, #2 or #3: 1 Performed By: #### L 100.0100, L500.2500, L300.4310, L300.3900, L503.6620, L501.4020 ####[facility] [address] [place], [address] CA,Total 8.8 mg/dL Normal 8.5-10.1 [facility] Comment on above: Order Comment: 'TROP ' Serial specimen #1, #2 or #3: 1 Performed By: #### L 100.0100, L500.2500, L300.4310, L300.3900, L503.6620, L501.4020 ####[facility] [address] [place], [address] Chloride [Moles/Vol] 103 mmol/L Normal 98-107 [facility] Comment on above: Order Comment: 'TROP ' Serial specimen #1, #2 or #3: 1 Performed By: #### L 100.0100, L500.2500, L300.4310, L300.3900, L503.6620, L501.4020 ####[facility] [address] [place], [address] CO2 [Moles/Vol] 26.0 mmol/L Normal 21.0-32.0 [facility] Comment on above: Order Comment: 'TROP ' Serial specimen #1, #2 or #3: 1 Performed By: #### L 100.0100, L500.2500, L300.4310, L300.3900, L503.6620, L501.4020 ####[facility] [address] [place], [address] Creatinine [Mass/Vol] 1.07 mg/dL Normal 0.70-1.30 [facility] Comment on above: Order Comment: 'TROP ' Serial specimen #1, #2 or #3: 1 Result Comment: The validity of the calculated GFR GFRAA in patients over70 years has not been determined. Clinical correlation isessential. Performed By: #### L 100.0100, L500.2500, L300.4310, L300.3900, L503.6620, L501.4020 ####[facility] [address] [place], [address] ECRCL 70.63 ml/min Normal [facility] Comment on above: Order Comment: 'TROP ' Serial specimen #1, #2 or #3: 1 Performed By: #### L 100.0100, L500.2500, L300.4310, L300.3900, L503.6620, L501.4020 ####[facility] [address] [place], [address] EST GFR - AA 86 mL/min Normal >60 [facility] Comment on above: Order Comment: 'TROP ' Serial specimen #1, #2 or #3: 1 Result Comment: Afri can Maltese GFR Calc Performed By: #### L 100.0100, L500.2500, L300.4310, L300.3900, L503.6620, L501.4020 ####[facility] [address] [place], [address] GAP 6 Normal 5-15 [facility] Comment on above: Order Comment: 'TROP ' Serial specimen #1, #2 or #3: 1 Performed By: #### L 100.0100, L500.2500, L300.4310, L300.3900, L503.6620, L501.4020 ####[facility] [address] [place], [address] GFR/1.73 sq M.predicted among non-blacks MDRD (S/P/Bld) [Vol rate/Area] 71 mL/min/{1.73_m2} Normal >60 [facility] Comment on above: Order Comment: 'TROP ' Serial specimen #1, #2 or #3: 1 Result Comment: Non- GFR Calc Performed By: #### L 100.0100, L500.2500, L300.4310, L300.3900, L503.6620, L501.4020 ####[facility] [address] [place], [address] Glucose [Mass/Vol] 126 mg/dL High 74-106 [facility] Comment on above: Order Comment: 'TROP ' Serial specimen #1, #2 or #3: 1 Result Comment: Fast ing Glucose result greater than or equal to 126 mg/dLsuggests DIABETES MELLITUS per A.D.A. criteria. Performed By: #### L 100.0100, L500.2500, L300.4310, L300.3900, L503.6620, L501.4020 ####[facility] [address] [place], [address] Potassium [Moles/Vol] 4.0 mmol/L Normal 3.5-5.1 [facility] Comment on above: Order Comment: 'TROP ' Serial specimen #1, #2 or #3: 1 Performed By: #### L 100.0100, L500.2500, L300.4310, L300.3900, L503.6620, L501.4020 ####[facility] [address] [place], [address] Sodium [Moles/Vol] 135 mmol/L Low 136-145 [facility] Comment on above: Order Comment: 'TROP ' Serial specimen #1, #2 or #3: 1 Performed By: #### L 100.0100, L500.2500, L300.4310, L300.3900, L503.6620, L501.4020 ####[facility] [address] [place], [address] Urea nitrogen [Mass/Vol] 20 mg/dL High 7-18 [facility] Comment on above: Order Comment: 'TROP ' Serial specimen #1, #2 or #3: 1 Performed By: #### L 100.0100, L500.2500, L300.4310, L300.3900, L503.6620, L501.4020 ####[facility] [address] [place], [address] Chest PA and Lateralon 01-18 Chest PA and Lateral Normal [facility] Emergency Department Summary on 01-19-2024 Emergency Department Summary Normal [facility] L501.4020on 01-19-2024 TROPONIN-I HS 15 pg/mL Normal 3.0-78.0 [facility] Comment on above: Order Comment: 'TROP ' Serial specimen #1, #2 or #3: 1 Result Comment: Kiran saunders Note: New Test Units and Gender Specific Reference Ranges. For more information see Policy Stat Procedure [place] High Sensitivity Troponin (TNIH) and attachments. Performed By: #### L 100.0100, L500.2500, L300.4310, L300.3900, L503.6620, L501.4020 ####[facility] [address] [place], [address] Lactic Acidon 01-19-2024 Lactate [Moles/Vol] 1.4 mmol/L Normal 0.4-1.9 [facility] Comment on above: Order Comment: Y Performed By: #### L 503.6005 ####[facility] [address] [place], [address] M100.678on 01-19-2024 M100.678 Pending SARS-CoV-2 (COVID 19) Negative INFLUENZA A Negative INFLUENZA B Negative RSV PCR Negative Normal [facility] Comment on above: Performed By: #### M 100.678 ####[facility] [address] [place], [address] Partial Thromboplast Timeon 01-19-2024 aPTT Coag (Bld) [Time] 48.5 s High 24.1-36.2 [facility] Comment on above: Performed By: #### L 100.0100, L500.2500, L300.4310, L300.3900, L503.6620, L501.4020 ####[facility] [address] [place], [address] Prothrombin Time w/INRon INR Coag (PPP) [Relative time] 2.5 {INR} Normal [facility] Comment on above: Performed By: #### L 100.0100, L500.2500, L300.4310, L300.3900, L503.6620, L501.4020 ####[facility] [address] [place], [address] PT Coag (PPP) [Time] 26.9 s High 11.7-14.9 [facility] Comment on above: Performed By: #### L 100.0100, L500.2500, L300.4310, L300.3900, L503.6620, L501.4020 ####[facility] [address] [place], [address] Urinalysis, Completeon 01-18 BACTERIA RARE Normal None Seen [facility] Comment on above: Order Comment: COLOR OF URINE MAY AFFECT DIPSTICK RESULTS.CLEAN CATCH Performed By: #### L 400.0001 ####[facility] [address] [place], [address] EPI,SQUAMOUS 0-5 SEEN Normal 0-5 [facility] Comment on above: Order Comment: COLOR OF URINE MAY AFFECT DIPSTICK RESULTS.CLEAN CATCH Performed By: #### L 400.0001 ####[facility] [address] [place], [address] RBC 0-5 SEEN Normal 0-5 [facility] Comment on above: Order Comment: COLOR OF URINE MAY AFFECT DIPSTICK RESULTS.CLEAN CATCH Performed By: #### L 400.0001 ####[facility] [address] [place], [address] WBC 5-10 SEEN Normal 0-5 [facility] Comment on above: Order Comment: COLOR OF URINE MAY AFFECT DIPSTICK RESULTS.CLEAN CATCH Performed By: #### L 400.0001 ####[facility] [address] [place], [address] Mucus Ql (Urine sed) 0 SEEN Normal [facility] Comment on above: Order Comment: COLOR OF URINE MAY AFFECT DIPSTICK RESULTS.CLEAN CATCH Performed By: #### L 400.0001 ####[facility] [address] [place], [address] Chest PA and Lateralon 01-17 Chest PA and Lateral Normal [facility] Urgent Care Visit Reporton 0 01-18-2024 Urgent Care Visit Report Normal [facility] ECHOCARDIOGRAM TRANSESOPHAGE AL (FER)on 08-10-2023 ECHOCARDIOGRAM TRANSESOPHAGEAL (FER) Test aborted as patient was unable to be properly sedated. Was given 7mg of Versed (unable to get Fentanyl given past adverse reaction) and still not sedated and very uncomfortable. Recommend rescheduling with general anesthesia. Table formatting from the original result was not included. Images from the original result were not included. 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 Was given 7mg of Versed (unable to get Fentanyl given past adverse reaction) and still not sedated and very uncomfortable. Recommend rescheduling with general anesthesia. Findings Left Ventricle Unable to assess left ventricle. Diastolic function not assessed. Right Ventricle Unable to assess right ventricle. Left Atrium Unable to assess left atrium. Right Atrium Unable to assess right atrium. Septum Unable to assess atrial septum. Mitral Valve Unable to assess mitral valve. Aortic Valve Unable to assess aortic valve. Tricuspid Valve Unable to assess tricuspid valve structure. Pulmonic Valve Unable to assess pulmonic valve. Aorta Unable to assess the aorta. Pericardium Unable to assess pericardium. IVC/SVC Unable to assess inferior vena cava. Pulmonary Artery Unable to assess pulmonary artery. Reading Providers Reading Role Read Date Dean Veloz MD Fellow - Performing, Fellow - Reading 08/10/2023 Radha Gunter MD [facility] [place], Test [facility] Manager 08/10/2023 Vitals Height Weight BSA (Calculated - sq m) BP Pulse 127/80 76 Performing Staff Keli Gamboa RN Study Details The risks and alternatives of the procedure and conscious sedation were explained to the patient/family member and/or their power of compliance attorney. Informed consent was obtained. All staff members involved in the procedure completed a timeout prior to the start of the procedure verifying correct patient identity and correct procedure to be performed. A transesophageal echocardiography study (including agitated saline contrast study) was performed. Total time physician provided iecz-ed-cllg service beginning with the administration of sedation medications until the patient was sufficiently recovered after the procedure was 25 minutes. FER probe type used: Kristopher. Patient reaction to probe was poor. Indications for study: endocarditis / bacteremia. Complications include unsuccessful esophageal intubation. Exam Details Performed Procedure Technologist Supporting Staff Performing Physician PROCEDURE ABORTED/NOT PERFORMED Keli Gamboa RN Appointment Date/Status Modality Department 08/10/2023 Arrived FER TESTING, [facility] ECHOCARDIOGRAPHY ROSS Begin Exam End Exam 08/10/2023 11:39 AM 08/10/2023 12:31 PM Moderate sedation provided by performing physician. Sedation/Procedure Log Medications (08/10/2023 00:00 to 08/10/2023 12:31) 08/10/2023 Event Details User 11:39 Medication $$New Bag$$ Sodium chloride 0.9% IV solution - Rate: 20 mL/hr ; Route: Intravenous ; Line: Peripheral IV Line - Single Lumen 08/10/23 1042 forearm, anterior, right 20 gauge ; Scheduled Time: 1145 Keli Gamboa RN 12:00 Medication Given Lidocaine (XYLOCAINE) 5 % ointment 1 Application - Dose: 1 Application ; Route: Topical Dean Veloz MD 12:02 Medication Given tetracaine-benzocaine (CETACAINE) topical spray 1 spray - Dose: 1 spray ; Route: Oral Daen Veloz MD 12:05 Medication Given midazolam (VERSED) injection 10 mg - Dose: 2 mg ; Route: Intravenous ; Line: Peripheral IV Line - Single Lumen 08/10/23 1042 forearm, anterior, right 20 gauge Keli Gamboa RN 12:08 Medication Given midazolam (VERSED) injection 10 mg - Dose: 2 mg ; Route: Intravenous ; Line: Peripheral IV Line - Single Lumen 08/10/23 1042 forearm, anterior, right 20 gauge Keli Gamboa RN 12:13 Medication Given midazolam (VERSED) injection 10 mg - Dose: 1 mg ; Route: Intravenous ; Line: Peripheral IV Line - Single Lumen 08/10/23 1042 forearm, anterior, right 20 gauge Keli Gamboa RN 12:19 Medication Given midazolam (VERSED) injection 10 mg - Dose: 2 mg ; Route: Intravenous ; Line: Peripheral IV Line - Single Lumen 08/10/23 1042 forearm, anterior, right 20 gauge Keli Gamboa RN Sedation/Procedure Log Documentation (08/10/2023 00:00 to 08/10/2023 12:31) 08/10/2023 Event Details User 09:13:17 Patient In - Facility (Arrived) Status: In Facility -- 09:13:18 Orders Placed Echocardiography - ECHOCARDIOGRAM TRANSESOPHAGEAL Wiley Covington MD 10:28 Procedure Documentation Procedure Documentation Procedure Type: FER Is (more content not included)... Normal [facility] Test aborted as patient was unable to be properly sedated. Was given 7mg of Versed (unable to get Fentanyl given past adverse reaction) and still not sedated and very uncomfortable. Recommend rescheduling with general anesthesia. Left Ventricle Unable to assess left ventricle. Diastolic function not assessed. Right Ventricle Unable to assess right ventricle. Left Atrium Unable to assess left atrium. Right Atrium Unable to assess right atrium. IVC/SVC Unable to assess inferior vena cava. Mitral Valve Unable to assess mitral valve. Tricuspid Valve Unable to assess tricuspid valve structure. Aortic Valve Unable to assess aortic valve. Pulmonic Valve Unable to assess pulmonic valve. Pericardium Unable to assess pericardium. Septum Unable to assess atrial septum. Pulmonary Artery Unable to assess pulmonary artery. Aorta Unable to assess the aorta. Study Details The risks and alternatives of the procedure and conscious sedation were explained to the patient/family member and/or their power of compliance attorney. Informed consent was obtained. All staff members involved in the procedure completed a timeout prior to the start of the procedure verifying correct patient identity and correct procedure to be performed. A transesophageal echocardiography study (including agitated saline contrast study) was performed. Total time physician provided payw-eb-[id number] service beginning with the administration of sedation medications until the patient was sufficiently recovered after the procedure was 25 minutes. FER probe type used: Kristopher. Patient reaction to probe was poor. Indications for study: endocarditis / bacteremia. Complications include unsuccessful esophageal intubation. [facility] Radiology Study observation (narrative) [facility] ECHOCARDIOGRAM TRANSESOPHAGE AL (FER)Ordered By: Radha Gunter on 08-10-2023 [facility] Work Phone: Basic metabolic 2000 panelon 07-23-2023 Anion gap [Moles/Vol] 13 mmol/L Normal 9-18 [facility] Comment on above: Order Comment: Angela bueno Type: BLOOD SPECIMEN Ordering Facility: External Submitter Address: , , Performed By: #### 2 4325-3, 89801-3 #### [facility] CLIA [id number] [address] [place] [address] [place] Calcium [Mass/Vol] 8.7 mg/dL Normal 8.5-10.2 [facility] Comment on above: Order Comment: Angela bueno Type: BLOOD SPECIMEN Ordering Facility: External Submitter Address: , , Performed By: #### 2 4325-3, 46255-5 #### [facility] CLIA [id number] [address] [place] [address] [place] Chloride [Moles/Vol] 102 mmol/L Normal 97-105 [facility] Comment on above: Order Comment: Speci men Type: BLOOD SPECIMEN Ordering Facility: External Submitter Address: , , Performed By: #### 2 4325-3, #### [facility] CLIA [id number] [address] [place] [address] [place] CO2 [Moles/Vol] 23 mmol/L Normal 22-30 [facility] Comment on above: Order Comment: Speci men Type: BLOOD SPECIMEN Ordering Facility: External Submitter Address: , , Performed By: #### 2 4325-3, #### [facility] [place] [id number] [address] [place] [address] [place] Creatinine [Mass/Vol] 0.95 mg/dL Normal 0.73-1.22 [facility] Comment on above: Order Comment: Speci men Type: BLOOD SPECIMEN Ordering Facility: External Submitter Address: , , Performed By: #### 2 4325-3, #### [facility] IA [id number] [address] [place] [address] [place] Creatinine and Glomerular filtration rate.predicted panel (S/P/Bld) 82 mL/min/1.73m??? Normal >=60 [facility] Comment on above: Order Comment: Speci men Type: BLOOD SPECIMEN Ordering Facility: External Submitter Address: , , Result Comment: Thu mated Glomerular Filtration Rate (eGFR) is calculated using the 2020 CKD-EPI creatinine equation. This equation utilizes serum creatinine, sex, and age as parameters. The creatinine assay has traceable calibration to isotope dilution-mass spectrometry. Refer to KDIGO guidelines for clinical interpretation. In patients with unstable renal function, e.g. those with acute kidney injury, the eGFR may not accurately reflect actual GFR. Performed By: #### 2 4325-3, 05853-0 #### [facility] CLIA [id number] [address] [address] [place] Glucose [Mass/Vol] 83 mg/dL Normal 74-99 [facility] Comment on above: Order Comment: Angela bueno Type: BLOOD SPECIMEN Ordering Facility: External Submitter Address: , , Result Comment: The [place] Diabetes [employer] (ADA) provides guidance for cutoff values for fasting glucose and random glucose. The ADA defines fasting as no caloric intake for at least 8 hours. Fasting plasma glucose results between 100 to 125 mg/dL indicate increased risk for diabetes (prediabetes). Fasting plasma glucose results greater than or equal to 126 mg/dL meet the criteria for diagnosis of diabetes. In the absence of unequivocal hyperglycemia, results should be confirmed by repeat testing. In a patient with classic symptoms of hyperglycemia or hyperglycemic crisis, random plasma glucose results greater than or equal to 200 mg/dL meet the criteria for diagnosis of diabetes. Reference: Standards of Medical Care in Diabetes 2016, [place] [employer]. Diabetes Care. 2016.39(Suppl 1). Performed By: #### 2 4325-3, #### [facility] CLIA [id number] [address] [address] [place] Potassium [Moles/Vol] 4.5 mmol/L Normal 3.7-5.1 [facility] Comment on above: Order Comment: Angela bueno Type: BLOOD SPECIMEN Ordering Facility: External Submitter Address: , , Performed By: #### 2 4325-3, #### [facility] CLIA [id number] [address] [address] [place] Sodium [Moles/Vol] 138 mmol/L Normal 136-144 [facility] Comment on above: Order Comment: Angela bueno Type: BLOOD SPECIMEN Ordering Facility: External Submitter Address: , , Performed By: #### 2 4325-3, #### [facility] CLIA [id number] [address] [address] [place] Urea nitrogen [Mass/Vol] 13 mg/dL Normal 9-24 [facility] Comment on above: Order Comment: Speci men Type: BLOOD SPECIMEN Ordering Facility: External Submitter Address: , , Performed By: #### 2 4325-3, 47227-0 #### [facility] CLIA [id number] [address] [place] [address] [place] CBC W Auto Differential pane l (Bld)on 07-23-2023 Basophils (Bld) [#/Vol] 0.06 10*3/uL Normal <0.11 [facility] Comment on above: Order Comment: Speci men Type: BLOOD SPECIMEN Ordering Facility: External Submitter Address: , , Performed By: #### 5 7021-8 #### [facility] CLIA [id number] [address] [place] [address] [place] Basophils/100 WBC (Bld) 1.0 % Normal [facility] Comment on above: Order Comment: Speci men Type: BLOOD SPECIMEN Ordering Facility: External Submitter Address: , , Performed By: #### 5 7021-8 #### [facility] CLIA [id number] [address] [place] [address] [place] Differential cell count method Nom (Bld) Auto Normal [facility] Comment on above: Order Comment: Speci men Type: BLOOD SPECIMEN Ordering Facility: External Submitter Address: , , Performed By: #### 5 7021-8 #### [facility] CLIA [id number] [address] [place] [address] [place] Eosinophils (Bld) [#/Vol] 0.22 10*3/uL Normal <0.46 [facility] Comment on above: Order Comment: Speci men Type: BLOOD SPECIMEN Ordering Facility: External Submitter Address: , , Performed By: #### 5 7021-8 #### [facility] CLIA [id number] [address] [place] [address] [place] Eosinophils/100 WBC (Bld) 3.7 % Normal [facility] Comment on above: Order Comment: Speci men Type: BLOOD SPECIMEN Ordering Facility: External Submitter Address: , , Performed By: #### 5 7021-8 #### [facility] CLIA [id number] [address] [place] [address] [place] Erythrocyte distribution width (RBC) [Ratio] 15.3 % High 11.5-15.0 [facility] Comment on above: Order Comment: Speci men Type: BLOOD SPECIMEN Ordering Facility: External Submitter Address: , , Performed By: #### 5 7021-8 #### [facility] CLIA [id number] [address] [place] [address] [place] Hematocrit (Bld) [Volume fraction] 33.7 % Low 39.0-51.0 [facility] Comment on above: Order Comment: Speci men Type: BLOOD SPECIMEN Ordering Facility: External Submitter Address: , , Performed By: #### 5 7021-8 #### [facility] CLIA [id number] [address] [place] [address] [place] Hemoglobin (Bld) [Mass/Vol] 10.3 g/dL Low 13.0-17.0 [facility] Comment on above: Order Comment: Speci men Type: BLOOD SPECIMEN Ordering Facility: External Submitter Address: , , Performed By: #### 5 7021-8 #### [facility] CLIA [id number] [address] [place] [address] [place] Immature granulocytes (Bld) [#/Vol] 10*3/uL Normal <0.10 [facility] Comment on above: Order Comment: Speci men Type: BLOOD SPECIMEN Ordering Facility: External Submitter Address: , , Performed By: #### 5 7021-8 #### [facility] CLIA [id number] [address] [place] [address] [place] Immature granulocytes/100 WBC (Bld) 0.3 % Normal [facility] Comment on above: Order Comment: Speci men Type: BLOOD SPECIMEN Ordering Facility: External Submitter Address: , , Performed By: #### 5 7021-8 #### [facility] CLIA [id number] [address] [place] [address] [place] Lymphocytes (Bld) [#/Vol] 0.62 10*3/uL Low 1.00-4.00 [facility] Comment on above: Order Comment: Speci men Type: BLOOD SPECIMEN Ordering Facility: External Submitter Address: , , Performed By: #### 5 7021-8 #### [facility] CLIA [id number] [address] [place] [address] [place] Lymphocytes/100 WBC (Bld) 10.5 % Normal [facility] Comment on above: Order Comment: Speci men Type: BLOOD SPECIMEN Ordering Facility: External Submitter Address: , , Performed By: #### 5 7021-8 #### [facility] CLIA [id number] [address] [place] [address] [place] MCH (RBC) [Entitic mass] 27.8 pg Normal 26.0-34.0 [facility] Comment on above: Order Comment: Speci men Type: BLOOD SPECIMEN Ordering Facility: External Submitter Address: , , Performed By: #### 5 7021-8 #### [facility] CLIA [id number] [address] [place] [address] [place] MCHC (RBC) [Mass/Vol] 30.6 g/dL Normal 30.5-36.0 [facility] Comment on above: Order Comment: Speci men Type: BLOOD SPECIMEN Ordering Facility: External Submitter Address: , , Performed By: #### 5 7021-8 #### [facility] CLIA [id number] [address] [place] [address] [place] MCV (RBC) [Entitic vol] 91.1 fL Normal 80.0-100.0 [facility] Comment on above: Order Comment: Speci men Type: BLOOD SPECIMEN Ordering Facility: External Submitter Address: , , Performed By: #### 5 7021-8 #### [facility] CLIA [id number] [address] [place] [address] [place] Monocytes (Bld) [#/Vol] 1.09 10*3/uL High <0.87 [facility] Comment on above: Order Comment: Speci men Type: BLOOD SPECIMEN Ordering Facility: External Submitter Address: , , Performed By: #### 5 7021-8 #### [facility] CLIA [id number] [address] [place] [address] [place] Monocytes/100 WBC (Bld) 18.4 % Normal [facility] Comment on above: Order Comment: Speci men Type: BLOOD SPECIMEN Ordering Facility: External Submitter Address: , , Performed By: #### 5 7021-8 #### [facility] CLIA [id number] [address] [place] [address] [place] Neutrophils (Bld) [#/Vol] 3.92 10*3/uL Normal 1.45-7.50 [facility] Comment on above: Order Comment: Speci men Type: BLOOD SPECIMEN Ordering Facility: External Submitter Address: , , Performed By: #### 5 7021-8 #### [facility] CLIA [id number] [address] [place] [address] [place] Neutrophils/100 WBC (Bld) 66.1 % Normal [facility] Comment on above: Order Comment: Speci men Type: BLOOD SPECIMEN Ordering Facility: External Submitter Address: , , Performed By: #### 5 7021-8 #### [facility] CLIA [id number] [address] [place] [address] [place] Nucleated RBC (Bld) [#/Vol] 10*3/uL Normal <0.01 [facility] Comment on above: Order Comment: Speci men Type: BLOOD SPECIMEN Ordering Facility: External Submitter Address: , , Performed By: #### 5 7021-8 #### [facility] CLIA [id number] [address] [place] [address] [place] Nucleated RBC/100 WBC (Bld) [Ratio] 0.0 /100 WBC Normal [facility] Comment on above: Order Comment: Speci men Type: BLOOD SPECIMEN Ordering Facility: External Submitter Address: , , Performed By: #### 5 7021-8 #### [facility] CLIA [id number] [address] [place] [address] [place] Platelet mean volume (Bld) [Entitic vol] 10.4 fL Normal 9.0-12.7 [facility] Comment on above: Order Comment: Speci men Type: BLOOD SPECIMEN Ordering Facility: External Submitter Address: , , Performed By: #### 5 7021-8 #### [facility] CLIA [id number] [address] [place] [address] [place] Platelets (Bld) [#/Vol] 276 10*3/uL Normal 150-400 [facility] Comment on above: Order Comment: Speci men Type: BLOOD SPECIMEN Ordering Facility: External Submitter Address: , , Performed By: #### 5 7021-8 #### [facility] CLIA [id number] [address] [place] [address] [place] RBC (Bld) [#/Vol] 3.70 10*6/uL Low 4.20-6.00 [facility] Comment on above: Order Comment: Speci men Type: BLOOD SPECIMEN Ordering Facility: External Submitter Address: , , Performed By: #### 5 7021-8 #### [facility] CLIA [id number] [address] [place] [address] [place] WBC (Bld) [#/Vol] 5.93 10*3/uL Normal 3.70-11.00 [facility] Comment on above: Order Comment: Speci men Type: BLOOD SPECIMEN Ordering Facility: External Submitter Address: , , Performed By: #### 5 7021-8 #### [facility] CLIA [id number] [address] [place] [address] [place] Hepatic function 2000 panelo n 07-23-2023 Albumin [Mass/Vol] 3.6 g/dL Low 3.9-4.9 [facility] Comment on above: Order Comment: Speci men Type: BLOOD SPECIMEN Ordering Facility: External Submitter Address: , , Performed By: #### 2 4325-3, 69716-9 #### [facility] CLIA [id number] [address] [place] [address] [place] ALP [Catalytic activity/Vol] 136 U/L High 38-113 [facility] Comment on above: Order Comment: Speci men Type: BLOOD SPECIMEN Ordering Facility: External Submitter Address: , , Performed By: #### 2 4325-3, 94495-2 #### [facility] CLIA [id number] [address] [place] [address] [place] ALT [Catalytic activity/Vol] U/L Low 10-54 [facility] Comment on above: Order Comment: Speci men Type: BLOOD SPECIMEN Ordering Facility: External Submitter Address: , , Result Comment: Resu lt rechecked. Performed By: #### 2 4325-3, 72700-0 #### [facility] CLIA [id number] [address] [place] [id number] [place] AST [Catalytic activity/Vol] 21 U/L Normal 14-40 [facility] Comment on above: Order Comment: Speci men Type: BLOOD SPECIMEN Ordering Facility: External Submitter Address: , , Performed By: #### 2 4325-3, 71335-1 #### [facility] CLIA [id number] [address] [place] [address] [place] Bilirubin [Mass/Vol] 0.3 mg/dL Normal 0.2-1.3 [facility] Comment on above: Order Comment: Specchyna bueno Type: BLOOD SPECIMEN Ordering Facility: External Submitter Address: , , Performed By: #### 2 4325-3, 79662-9 #### [facility] CLIA [id number] [address] [place] [address] [place] Bilirubin.conjugated [Mass/Vol] mg/dL Normal <0.2 [facility] Comment on above: Order Comment: Angela bueno Type: BLOOD SPECIMEN Ordering Facility: External Submitter Address: , , Performed By: #### 2 4325-3, #### [facility] CLIA [id number] [address] [place] [address] [place] Protein [Mass/Vol] 6.6 g/dL Normal 6.3-8.0 [facility] Comment on above: Order Comment: Angela bueno Type: BLOOD SPECIMEN Ordering Facility: External Submitter Address: , , Performed By: #### 2 4325-3, #### [facility] CLIA [id number] [address] [place] [address] [place] Laboratory - Coagulationon 0 06-19-2023 INR Coag (Bld) [Relative time] 2.5 {INR} High 0.9 - 1.1 [facility] PT Coag (PPP) [Time] 27.0 s High [facility] No Panel InformationOrdered By: Jeff Reilly on 06-19-2023 [facility] Work Phone: No Panel Informationon 06-19 [facility] Interpretation and review of laboratory results Abnormal [facility] Laboratory - Chemistry and C hemistry - challengeon 06-18-2023 Anion gap [Moles/Vol] 13 mmol/L 7 - 17 mmol/L [facility] Chloride [Moles/Vol] 102 mmol/L 98 - 108 mmol/L [facility] CO2 [Moles/Vol] 28 mmol/L 21 - 31 mmol/L [facility] Creatinine [Mass/Vol] 1.03 mg/dL 0.70 - 1.30 mg/dL [facility] Magnesium [Mass/Vol] 2.0 mg/dL 1.6 - 2.6 mg/dL [facility] Potassium [Moles/Vol] 4.6 mmol/L 3.5 - 5.0 mmol/L [facility] Sodium [Moles/Vol] 138 mmol/L 135 - 145 mmol/L [facility] Urea nitrogen [Mass/Vol] 20 mg/dL 7 - 25 mg/dL [facility] Urea nitrogen/Creatinine [Mass ratio] 19 mg/mg [facility] Laboratory - CoagulationOrde red By: Akash Hastings on 06-18-2023 aPTT Coag (PPP) [Time] 123.4 s High [facility] Laboratory - Coagulationon 0 06-18-2023 INR Coag (Bld) [Relative time] 2.5 {INR} High 0.9 - 1.1 [facility] PT Coag (PPP) [Time] 26.5 s High [facility] No Panel Informationon 06-18 [facility] Interpretation and review of laboratory results Abnormal [facility] eGFR, CKD-EPI, Male 74 - PINF [facility] Comment on above: Reported eGFR is bas ed on the CKD-EPI 2020 equation using creatinine, age, and sex. Interpretation and review of laboratory results Normal [facility] No Panel InformationOrdered By: Akash Hastings on 06-18-2023 Interpretation and review of laboratory results Abnormal [facility] Laboratory - Chemistry and C hemistry - challengeon 06-17-2023 Creatinine [Mass/Vol] 1.04 mg/dL 0.70 - 1.30 mg/dL [facility] Laboratory - Coagulationon 0 06-17-2023 aPTT Coag (PPP) [Time] 74.5 s High [facility] aPTT Coag (PPP) [Time] 101.7 s High [facility] aPTT Coag (PPP) [Time] 91.6 s [facility] INR Coag (Bld) [Relative time] 1.7 {INR} High 0.9 - 1.1 [facility] PT Coag (PPP) [Time] 20.0 s High [facility] Laboratory - Hematology and Cell countson 06-17-2023 Platelet mean volume (Bld) [Entitic vol] 10.2 fL 8.7 - 12.3 fL [facility] Platelets (Bld) [#/Vol] 270 10*3/uL 146 - 337 K/uL [facility] No Panel Informationon 06-17 Interpretation and review of laboratory results Abnormal [facility] Interpretation and review of laboratory results Abnormal [facility] Interpretation and review of laboratory results Normal [facility] [place] Interpretation and review of laboratory results Abnormal [facility] Interpretation and review of laboratory results Abnormal [facility] eGFR, CKD-EPI, Male 73 - PINF [facility] Comment on above: Reported eGFR is bas ed on the CKD-EPI 2020 equation using creatinine, age, and sex. Interpretation and review of laboratory results Normal [facility] Bacteria identified Cx Nom ( Bld)on 06-16-2023 Bacteria identified Cx Nom (Unsp spec) NO GROWTH DAY 5 OF 5 [facility] Results may be compromised due to volume of BACT\ALERT bottle below 8mLs. The optimal blood volume is 8-10 mls per aerobic/anaerobic blood culture bottle [facility] Bacteria identified Cx Nom (Unsp spec) NO GROWTH DAY 5 OF 5 [facility] Laboratory - Coagulationon 0 06-16-2023 aPTT Coag (PPP) [Time] 71.1 s High [facility] aPTT Coag (PPP) [Time] 116.6 s High [facility] INR Coag (Bld) [Relative time] 1.4 {INR} High 0.9 - 1.1 [facility] PT Coag (PPP) [Time] 17.2 s High [facility] Laboratory - CoagulationOrde red By: Leroy Daniels on 06-16-2023 aPTT Coag (PPP) [Time] 72.3 s High [facility] Comment on above: Results inconsistent with previous results Laboratory - CoagulationOrde red By: Nato José on 06-16-2023 aPTT Coag (PPP) [Time] 91.4 s High [facility] No Panel Informationon 06-16 Interpretation and review of laboratory results Abnormal [facility] Interpretation and review of laboratory results Abnormal [facility] Interpretation and review of laboratory results Abnormal [facility] No Panel InformationOrdered By: Leroy Daniels on 06-16-2023 Interpretation and review of laboratory results Abnormal [facility] No Panel InformationOrdered By: Nato José on 06-16-2023 Interpretation and review of laboratory results Abnormal [facility] Laboratory - Chemistry and C hemistry - challengeon 06-15-2023 Anion gap [Moles/Vol] 12 mmol/L 7 - 17 mmol/L [facility] Chloride [Moles/Vol] 103 mmol/L 98 - 108 mmol/L [facility] CO2 [Moles/Vol] 28 mmol/L 21 - 31 mmol/L [facility] Creatinine [Mass/Vol] 1.03 mg/dL 0.70 - 1.30 mg/dL [facility] Glucose [Mass/Vol] 93 mg/dL 70 - 99 mg/dL [facility] Magnesium [Mass/Vol] 1.9 mg/dL 1.6 - 2.6 mg/dL [facility] Osmolality Calc [Osmolality] 294 [facility] Potassium [Moles/Vol] 4.4 mmol/L 3.5 - 5.0 mmol/L [facility] Sodium [Moles/Vol] 139 mmol/L 135 - 145 mmol/L [facility] Urea nitrogen [Mass/Vol] 20 mg/dL 7 - 25 mg/dL [facility] Urea nitrogen/Creatinine [Mass ratio] 19 mg/mg [facility] Laboratory - Coagulationon 0 06-15-2023 aPTT Coag (PPP) [Time] 67.8 s High [facility] aPTT Coag (PPP) [Time] 82.6 s [facility] INR Coag (Bld) [Relative time] 1.2 {INR} High 0.9 - 1.1 [facility] PT Coag (PPP) [Time] 15.5 s [facility] Laboratory - Hematology and Cell countson 06-15-2023 Platelet mean volume (Bld) [Entitic vol] 10.4 fL 8.7 - 12.3 fL [facility] Platelets (Bld) [#/Vol] 269 10*3/uL 146 - 337 K/uL [facility] No Panel Informationon 06-15 Interpretation and review of laboratory results Abnormal [facility] Interpretation and review of laboratory results Normal [facility] Interpretation and review of laboratory results Abnormal [facility] Interpretation and review of laboratory results Abnormal [facility] eGFR, CKD-EPI, Male 74 - PINF [facility] Comment on above: Reported eGFR is bas ed on the CKD-EPI 2020 equation using creatinine, age, and sex. Interpretation and review of laboratory results Normal [facility] Laboratory - Chemistry and C hemistry - challengeon 06-14-2023 Anion gap [Moles/Vol] 12 mmol/L 7 - 17 mmol/L [facility] Chloride [Moles/Vol] 104 mmol/L 98 - 108 mmol/L [facility] CO2 [Moles/Vol] 26 mmol/L 21 - 31 mmol/L [facility] Creatinine [Mass/Vol] 1.11 mg/dL 0.70 - 1.30 mg/dL [facility] Glucose [Mass/Vol] 132 mg/dL High 70 - 99 mg/dL [facility] Magnesium [Mass/Vol] 1.9 mg/dL 1.6 - 2.6 mg/dL [facility] Osmolality Calc [Osmolality] 295 [facility] Potassium [Moles/Vol] 4.2 mmol/L 3.5 - 5.0 mmol/L [facility] Sodium [Moles/Vol] 138 mmol/L 135 - 145 mmol/L [facility] Urea nitrogen [Mass/Vol] 22 mg/dL 7 - 25 mg/dL [facility] Urea nitrogen/Creatinine [Mass ratio] 20 mg/mg [facility] Laboratory - Coagulationon 0 06-14-2023 aPTT Coag (PPP) [Time] 81.6 s High [facility] aPTT Coag (PPP) [Time] 85.3 s [facility] INR Coag (Bld) [Relative time] 1.3 {INR} High 0.9 - 1.1 [facility] PT Coag (PPP) [Time] 16.3 s High [facility] No Panel Informationon 06-14 [facility] Interpretation and review of laboratory results Abnormal [facility] [place] Interpretation and review of laboratory results Abnormal [facility] Interpretation and review of laboratory results Abnormal [facility] eGFR, CKD-EPI, Male 68 - PINF [facility] Comment on above: Reported eGFR is bas ed on the CKD-EPI 2020 equation using creatinine, age, and sex. Interpretation and review of laboratory results Abnormal [facility] Interpretation and review of laboratory results Normal [facility] Portable XR Chest Viewson IMPRESSION: Appropriately positioned PICC. Resolution of the pulmonary edema. Stable trace left-sided pleural effusion. I personally viewed and interpreted these images and I have reviewed and approved this report. OLOGY EXAM: XR CHEST 1 VIE W PORTABLE, 06/14/2023 11:33 AM COMPARISON: Chest radiograph June 06, 2023 CLINICAL INDICATIONS: Confirm new PICC placement in setting of Afib RELEVANT CLINICAL HISTORY: FINDINGS: (Adequate technique) Implanted Devices: Interval removal of the right-sided central venous catheter with interval placement of a PICC with tip at the cavoatrial junction. Thorax: Lungs are clear. Stable trace left pleural effusion. 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 Median sternotomy wires are in stable alignment. RADIOLOGY Louie Mahmood MD - 06/14/2023 EXAM: XR CHEST 1 VIEW PORTABLE, 06/14/2023 11:33 AM COMPARISON: Chest radiograph June 06, 2023 CLINICAL INDICATIONS: Confirm new PICC placement in setting of Afib RELEVANT CLINICAL HISTORY: FINDINGS: (Adequate technique) Implanted Devices: Interval removal of the right-sided central venous catheter with interval placement of a PICC with tip at the cavoatrial junction. Thorax: Lungs are clear. Stable trace left pleural effusion. 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 Median sternotomy wires are in stable alignment. IMPRESSION IMPRESSION: Appropriately positioned PICC. Resolution of the pulmonary edema. Stable trace left-sided pleural effusion. I personally viewed and interpreted these images and I have reviewed and approved this report. [facility] Radiology Study observation (narrative) [facility] Bacteria identified Cx Nom ( Bld)on 06-13-2023 Bacteria identified Cx Nom (Unsp spec) NO [facility] DAY [facility] (Unsp spec) NO GROWTH DAY 5 OF 5 [facility] Laboratory - Chemistry and C hemistry - challengeon 06-13-2023 Anion gap [Moles/Vol] 12 mmol/L 7 - 17 mmol/L [facility] Chloride [Moles/Vol] 104 mmol/L 98 - 108 mmol/L [facility] CO2 [Moles/Vol] 26 mmol/L 21 - 31 mmol/L [facility] Creatinine [Mass/Vol] 1.06 mg/dL 0.70 - 1.30 mg/dL [facility] Glucose [Mass/Vol] 95 mg/dL 70 - 99 mg/dL [facility] Magnesium [Mass/Vol] 2.0 mg/dL 1.6 - 2.6 mg/dL [facility] Osmolality Calc [Osmolality] 292 [facility] Potassium [Moles/Vol] 4.2 mmol/L 3.5 - 5.0 mmol/L [facility] Sodium [Moles/Vol] 138 mmol/L 135 - 145 mmol/L [facility] Urea nitrogen [Mass/Vol] 21 mg/dL 7 - 25 mg/dL [facility] Urea nitrogen/Creatinine [Mass ratio] 20 mg/mg [facility] Laboratory - CoagulationOrde red By: William Das on 06-13-2023 aPTT Coag (PPP) [Time] 72.6 s High [facility] Laboratory - Coagulationon 0 06-13-2023 aPTT Coag (PPP) [Time] 53.4 s High [facility] aPTT Coag (PPP) [Time] 131.1 s High [facility] INR Coag (Bld) [Relative time] 1.4 {INR} High 0.9 - 1.1 [facility] PT Coag (PPP) [Time] 17.3 s High [facility] Laboratory - CoagulationOrde red By: Columba Salmon on 06-13-2023 aPTT Coag (PPP) [Time] 52.2 s High [facility] Laboratory - Drug toxicology Ordered By: Malika Zepeda on 06-13-2023 Gentamicin trough [Mass/Vol] 0.6 mg/L [facility] Laboratory - Hematology and Cell countson 06-13-2023 Platelet mean volume (Bld) [Entitic vol] 10.3 fL 8.7 - 12.3 fL [facility] Platelets (Bld) [#/Vol] 278 10*3/uL 146 - 337 K/uL [facility] No Panel Informationon 06-13 [facility] Interpretation and review of laboratory results Abnormal [facility] Interpretation and review of laboratory results Normal [facility] Interpretation and review of laboratory results Abnormal [facility] eGFR, CKD-EPI, Male 72 - PINF [facility] Comment on above: Reported eGFR is bas ed on the CKD-EPI 2020 equation using creatinine, age, and sex. Interpretation and review of laboratory results Normal [facility] Interpretation and review of laboratory results Abnormal [facility] No Panel InformationOrdered By: William Das on 06-13-2023 Interpretation and review of laboratory results Abnormal [facility] No Panel InformationOrdered By: Malika Zepeda on 06-13-2023 Interpretation and review of laboratory results Normal [facility] No Panel InformationOrdered By: Columba Salmon on 06-13-2023 Interpretation and review of laboratory results Abnormal [facility] Laboratory - Chemistry and C hemistry - challengeon 06-12-2023 Albumin [Mass/Vol] 3.3 g/dL Low 3.5 - 5.0 g/dL [facility] Anion gap [Moles/Vol] 13 mmol/L 7 - 17 mmol/L [facility] Chloride [Moles/Vol] 101 mmol/L 98 - 108 mmol/L [facility] CO2 [Moles/Vol] 27 mmol/L 21 - 31 mmol/L [facility] Creatinine [Mass/Vol] 1.12 mg/dL 0.70 - 1.30 mg/dL [facility] Glucose [Mass/Vol] 96 mg/dL 70 - 99 mg/dL [facility] Magnesium [Mass/Vol] 2.0 mg/dL 1.6 - 2.6 mg/dL [facility] Osmolality Calc [Osmolality] 290 [facility] Potassium [Moles/Vol] 4.4 mmol/L 3.5 - 5.0 mmol/L [facility] Sodium [Moles/Vol] 137 mmol/L 135 - 145 mmol/L [facility] Urea nitrogen [Mass/Vol] 20 mg/dL 7 - 25 mg/dL [facility] Urea nitrogen/Creatinine [Mass ratio] 18 mg/mg [facility] Laboratory - Coagulationon 0 06-12-2023 aPTT Coag (PPP) [Time] 59.8 s High [facility] INR Coag (Bld) [Relative time] 1.5 {INR} High 0.9 - 1.1 [facility] PT Coag (PPP) [Time] 17.7 s High [facility] Laboratory - CoagulationOrde red By: Jeff Dwyer on 06-12-2023 aPTT Coag (PPP) [Time] 63.5 s High [facility] Laboratory - CoagulationOrde red By: Silvestre Park on 06-12-2023 aPTT Coag (PPP) [Time] 121.0 s High [facility] Laboratory - Drug toxicology Ordered By: Biju Ivey on 06-12-2023 Gentamicin peak [Mass/Vol] 2.8 [facility] No Panel InformationOrdered By: Biju Ivey on 06-12-2023 Interpretation and review of laboratory results Normal [facility] No Panel Informationon 06-12 Interpretation and review of laboratory results Abnormal [facility] Interpretation and review of laboratory results Abnormal [facility] eGFR, CKD-EPI, Male 67 - PINF [facility] Comment on above: Reported eGFR is bas ed on the CKD-EPI 2020 equation using creatinine, age, and sex. Interpretation and review of laboratory results Normal [facility] Interpretation and review of laboratory results Abnormal [facility] No Panel InformationOrdered By: Jeff Dwyer on 06-12-2023 Interpretation and review of laboratory results Abnormal [facility] No Panel InformationOrdered By: Silvestre Park on 06-12-2023 Interpretation and review of laboratory results Abnormal [facility] Laboratory - Chemistry and C hemistry - challengeon 06-11-2023 Anion gap [Moles/Vol] 14 mmol/L 7 - 17 mmol/L [facility] Chloride [Moles/Vol] 100 mmol/L 98 - 108 mmol/L [facility] CO2 [Moles/Vol] 27 mmol/L 21 - 31 mmol/L [facility] Creatinine [Mass/Vol] 1.10 mg/dL 0.70 - 1.30 mg/dL [facility] Glucose [Mass/Vol] 81 mg/dL 70 - 99 mg/dL [facility] Osmolality Calc [Osmolality] 290 [facility] Potassium [Moles/Vol] 4.4 mmol/L 3.5 - 5.0 mmol/L [facility] Sodium [Moles/Vol] 137 mmol/L 135 - 145 mmol/L [facility] Urea nitrogen [Mass/Vol] 21 mg/dL 7 - 25 mg/dL [facility] Urea nitrogen/Creatinine [Mass ratio] 19 mg/mg [facility] Magnesium [Mass/Vol] 2.0 mg/dL 1.6 - 2.6 mg/dL [facility] Potassium [Moles/Vol] 4.2 mmol/L 3.5 - 5.0 mmol/L [facility] Laboratory - CoagulationOrde red By: Orlaia Pinto on 06-11-2023 aPTT Coag (PPP) [Time] 80.2 s High [facility] Laboratory - Coagulationon 0 06-11-2023 aPTT Coag (PPP) [Time] 39.7 s High [facility] INR Coag (Bld) [Relative time] 1.5 {INR} High 0.9 - 1.1 [facility] PT Coag (PPP) [Time] 18.3 s High [facility] Laboratory - CoagulationOrde red By: Xu Martin on 06-11-2023 aPTT Coag (PPP) [Time] 60.8 s High [facility] Laboratory - CoagulationOrde red By: Louis Wilks on 06-11-2023 aPTT Coag (PPP) [Time] 140.1 s High [facility] Laboratory - Hematology and Cell countson 06-11-2023 Platelet mean volume (Bld) [Entitic vol] 10.6 fL 8.7 - 12.3 fL [facility] Platelets (Bld) [#/Vol] 260 10*3/uL 146 - 337 K/uL [facility] No Panel InformationOrdered By: Oralia Pinto on 06-11-2023 Interpretation and review of laboratory results Abnormal [facility] No Panel Informationon 06-11 [facility] Interpretation and review of laboratory results Abnormal [facility] Interpretation and review of laboratory results Normal [facility] eGFR, CKD-EPI, Male 69 - PINF [facility] Comment on above: Reported eGFR is bas ed on the CKD-EPI 2020 equation using creatinine, age, and sex. [facility] Interpretation and review of laboratory results Abnormal [facility] Interpretation and review of laboratory results Normal [facility] No Panel InformationOrdered By: Xu Martin on 06-11-2023 Interpretation and review of laboratory results Abnormal [facility] No Panel InformationOrdered By: Louis Wilks on 06-11-2023 Interpretation and review of laboratory results Abnormal [facility] Bacteria identified Cx Nom ( Bld)on 06-10-2023 Bacteria identified Cx Nom (Unsp spec) Growth [facility] Bacteria identified Cx Nom (Unsp spec) STAPHYLOCOCCUS AUREUS Abnormal [place] Comment on above: Susceptibilities set up on 06/08/23 Do not use oral antibiotics for this type of bacteremia. If an oral antibiotic is requested, please consult the ASP team (pager [phone]) for guidance. Interpretation and review of laboratory results Abnormal [facility] Results may be compromised due to volume of BACT\ALERT bottle exceeding 10mLs . The optimal blood volume is 8-10 mls per aerobic/anaerobic blood culture bottle. [facility] Bacteria identified Cx Nom ( Bld)Ordered By: Tiny Mcallister on 06-10-2023 Bacteria identified Cx Nom (Unsp spec) Growth [facility] Bacteria identified Cx Nom (Unsp spec) STAPHYLOCOCCUS AUREUS Abnormal [place] Comment on above: Refer to specimen 24 [id number] for susceptibilities. Interpretation and review of laboratory results Abnormal [facility] Results may be compromised due to volume of BACT\ALERT bottle exceeding 10mLs . The optimal blood volume is 8-10 mls per aerobic/anaerobic blood culture bottle. [facility] Laboratory - Chemistry and C hemistry - challengeon 06-10-2023 Anion gap [Moles/Vol] 12 mmol/L 7 - 17 mmol/L [facility] Chloride [Moles/Vol] 104 mmol/L 98 - 108 mmol/L [facility] CO2 [Moles/Vol] 26 mmol/L 21 - 31 mmol/L [facility] Creatinine [Mass/Vol] 0.91 mg/dL 0.70 - 1.30 mg/dL [facility] Glucose [Mass/Vol] 87 mg/dL 70 - 99 mg/dL [facility] Magnesium [Mass/Vol] 1.8 mg/dL 1.6 - 2.6 mg/dL [facility] Osmolality Calc [Osmolality] 291 [facility] Potassium [Moles/Vol] 3.9 mmol/L 3.5 - 5.0 mmol/L [facility] Sodium [Moles/Vol] 138 mmol/L 135 - 145 mmol/L [facility] Urea nitrogen [Mass/Vol] 21 mg/dL 7 - 25 mg/dL [facility] Urea nitrogen/Creatinine [Mass ratio] 23 mg/mg [facility] Laboratory - CoagulationOrde red By: Jennifer Flower on 06-10-2023 aPTT Coag (PPP) [Time] 102.8 s [facility] Laboratory - Coagulationon 0 06-10-2023 aPTT Coag (PPP) [Time] 62.5 s High [facility] Laboratory - CoagulationOrde red By: Coral Juárez on 06-10-2023 aPTT Coag (PPP) [Time] 55.2 s High [facility] Laboratory - CoagulationOrde red By: Lubna Snow on 06-10-2023 aPTT Coag (PPP) [Time] 138.0 s High [facility] INR Coag (Bld) [Relative time] 1.4 {INR} High 0.9 - 1.1 [facility] PT Coag (PPP) [Time] 17.1 s High [facility] Laboratory - Drug toxicology Ordered By: Sonia Boateng on 06-10-2023 Gentamicin trough [Mass/Vol] 1.5 mg/L Critically high [facility] No Panel InformationOrdered By: Jennifer Flower on 06-10-2023 Interpretation and review of laboratory results Abnormal [facility] No Panel InformationOrdered By: Sonia Boateng on 06-10-2023 Interpretation and review of laboratory results Abnormal [facility] No Panel Informationon 06-10 Interpretation and review of laboratory results Abnormal [facility] eGFR, CKD-EPI, Male 86 - PINF [facility] Comment on above: Reported eGFR is bas ed on the CKD-EPI 2020 equation using creatinine, age, and sex. Interpretation and review of laboratory results Normal [facility] No Panel InformationOrdered By: Coral Juárez on 06-10-2023 Interpretation and review of laboratory results Abnormal [facility] No Panel InformationOrdered By: Lubna Snow on 06-10-2023 Interpretation and review of laboratory results Abnormal [facility] Laboratory - Chemistry and C hemistry - challengeon 06-09-2023 Anion gap [Moles/Vol] 11 mmol/L 7 - 17 mmol/L [facility] Chloride [Moles/Vol] 104 mmol/L 98 - 108 mmol/L [facility] CO2 [Moles/Vol] 26 mmol/L 21 - 31 mmol/L [facility] Creatinine [Mass/Vol] 0.93 mg/dL 0.70 - 1.30 mg/dL [facility] Glucose [Mass/Vol] 100 mg/dL High 70 - 99 mg/dL [facility] Magnesium [Mass/Vol] 1.9 mg/dL 1.6 - 2.6 mg/dL [facility] Osmolality Calc [Osmolality] 291 [facility] Potassium [Moles/Vol] 4.2 mmol/L 3.5 - 5.0 mmol/L [facility] Sodium [Moles/Vol] 137 mmol/L 135 - 145 mmol/L [facility] Urea nitrogen [Mass/Vol] 23 mg/dL 7 - 25 mg/dL [facility] Urea nitrogen/Creatinine [Mass ratio] 25 mg/mg [facility] Laboratory - Coagulationon 0 06-09-2023 aPTT Coag (PPP) [Time] 92.7 s High [facility] INR Coag (Bld) [Relative time] 1.4 {INR} High 0.9 - 1.1 [facility] PT Coag (PPP) [Time] 16.9 s High [facility] aPTT Coag (PPP) [Time] 101.7 s [facility] aPTT Coag (PPP) [Time] 91.6 s [facility] Laboratory - Hematology and Cell countson 06-09-2023 Platelet mean volume (Bld) [Entitic vol] 10.3 fL 8.7 - 12.3 fL [facility] Platelets (Bld) [#/Vol] 287 10*3/uL 146 - 337 K/uL [facility] No Panel Informationon 06-09 Interpretation and review of laboratory results Abnormal [facility] Interpretation and review of laboratory results Normal [facility] Interpretation and review of laboratory results Abnormal [facility] Interpretation and review of laboratory results Abnormal [facility] eGFR, CKD-EPI, Male 84 - PINF [facility] Comment on above: Reported eGFR is bas ed on the CKD-EPI 2020 equation using creatinine, age, and sex. Interpretation and review of laboratory results Normal [facility] Interpretation and review of laboratory results Abnormal [facility] No Panel InformationOrdered By: Unassigned Pacs on 06-09-2023 [facility] Work Phone: Laboratory - Chemistry and C hemistry - challengeon 06-08-2023 Anion gap [Moles/Vol] 13 mmol/L 7 - 17 mmol/L [facility] Chloride [Moles/Vol] 103 mmol/L 98 - 108 mmol/L [facility] [facility] CO2 [Moles/Vol] 25 mmol/L 21 - 31 mmol/L [facility] Creatinine [Mass/Vol] 0.92 mg/dL 0.70 - 1.30 mg/dL [facility] Glucose [Mass/Vol] 116 mg/dL High 70 - 99 mg/dL [facility] Osmolality Calc [Osmolality] 291 [facility] Potassium [Moles/Vol] 3.9 mmol/L 3.5 - 5.0 mmol/L [facility] Sodium [Moles/Vol] 137 mmol/L 135 - 145 mmol/L [facility] Urea nitrogen [Mass/Vol] 20 mg/dL 7 - 25 mg/dL [facility] Urea nitrogen/Creatinine [Mass ratio] 22 mg/mg [facility] Magnesium [Mass/Vol] 2.0 mg/dL 1.6 - 2.6 mg/dL [facility] Laboratory - Coagulationon 0 06-08-2023 aPTT Coag (PPP) [Time] 80.1 s High [facility] aPTT Coag (PPP) [Time] 69.8 s High [facility] Laboratory - CoagulationOrde red By: Kalina Mejia on 06-08-2023 aPTT Coag (PPP) [Time] 92.6 s High [facility] Laboratory - Drug toxicology Ordered By: Eder Ramirez on 06-08-2023 Gentamicin trough [Mass/Vol] 1.1 mg/L Critically high [facility] Laboratory - Hematology and Cell countson 06-08-2023 Erythrocyte distribution width (RBC) [Ratio] 18.7 % High 10.9 - 14.3 % [facility] Hematocrit (Bld) [Volume fraction] 32.6 % Low 39.6 - 48.8 % [facility] Hemoglobin (Bld) [Mass/Vol] 10.2 g/dL Low 13.4 - 16.8 g/dL [facility] MCH (RBC) [Entitic mass] 28.3 pg 26.1 - 33.3 pg [facility] MCHC (RBC) [Mass/Vol] 31.3 g/dL Low 31.9 - 36.5 g/dL [facility] MCV (RBC) [Entitic vol] 90.6 fL 79.0 - 94.5 fL [facility] Platelet mean volume (Bld) [Entitic vol] 10.9 fL 8.7 - 12.3 fL [facility] Platelets (Bld) [#/Vol] 226 10*3/uL 146 - 337 K/uL [facility] RBC (Bld) [#/Vol] 3.60 10*6/uL Low [facility] WBC (Bld) [#/Vol] 15.06 10*3/uL High 3.73 - 10 .10 K/uL [facility] No Panel Informationon 06-08 Interpretation and review of laboratory results Abnormal [facility] Interpretation and review of laboratory results Abnormal [facility] eGFR, CKD-EPI, Male 85 - PINF [facility] Comment on above: Reported eGFR is bas ed on the CKD-EPI 2020 equation using creatinine, age, and sex. Interpretation and review of laboratory results Abnormal [facility] Interpretation and review of laboratory results Normal [facility] Interpretation and review of laboratory results Abnormal [facility] No Panel InformationOrdered By: Eder Ramirez on 06-08-2023 Interpretation and review of laboratory results Abnormal [facility] No Panel InformationOrdered By: Kalina Mejia on 06-08-2023 Interpretation and review of laboratory results Abnormal [facility] Laboratory - CoagulationOrde red By: Jeff Hebert on 06-07-2023 aPTT Coag (PPP) [Time] 54.2 s High [facility] Laboratory - Coagulationon 0 06-07-2023 aPTT Coag (PPP) [Time] 39.9 s High [facility] aPTT Coag (PPP) [Time] 43.5 s High [facility] INR Coag (Bld) [Relative time] 2.1 {INR} High 0.9 - 1.1 [facility] PT Coag (PPP) [Time] 23.3 s High [facility] Laboratory - Hematology and Cell countson 06-07-2023 Erythrocyte distribution width (RBC) [Ratio] 19.1 % High 10.9 - 14.3 % [facility] Hematocrit (Bld) [Volume fraction] 33.5 % Low 39.6 - 48.8 % [facility] Hemoglobin (Bld) [Mass/Vol] 10.6 g/dL Low 13.4 - 16.8 g/dL [facility] MCH (RBC) [Entitic mass] 27.8 pg 26.1 - 33.3 pg [facility] MCHC (RBC) [Mass/Vol] 31.6 g/dL Low 31.9 - 36.5 g/dL [facility] MCV (RBC) [Entitic vol] 87.9 fL 79.0 - 94.5 fL [facility] Platelet mean volume (Bld) [Entitic vol] 10.3 fL 8.7 - 12.3 fL [facility] Platelets (Bld) [#/Vol] 222 10*3/uL 146 - 337 K/uL [facility] RBC (Bld) [#/Vol] 3.81 10*6/uL Low [facility] WBC (Bld) [#/Vol] 14.90 10*3/uL High 3.73 - 10 .10 K/uL [facility] Laboratory - Microbiology an d Antimicrobial susceptibilityOrdered By: Gm Scott on 06-07-2023 C. albicans DNA MICHELLE+non-probe Ql (Pos bld culture) Not detected Not Detected [facility] C. glabrata DNA MICHELLE+non-probe Ql (Pos bld culture) Not detected Not Detected [facility] C. krusei DNA MICHELLE+non-probe Ql (Pos bld culture) Not detected Not Detected [facility] C. parapsilosis DNA MICHELLE+non-probe Ql (Pos bld culture) Not detected Not Detected [facility] C. tropicalis DNA MICHELLE+non-probe Ql (Pos bld culture) Not detected Not Detected [facility] E. cloacae complex DNA MICHELLE+non-probe Ql (Pos bld culture) Not detected Not Detected [facility] E. coli DNA MICHELLE+non-probe Ql (Pos bld culture) Not detected Not Detected [facility] H. influenzae DNA MICHELLE+non-probe Ql (Pos bld culture) Not detected Not Detected [facility] K. oxytoca DNA MICHELLE+non-probe Ql (Pos bld culture) Not detected Not Detected [facility] L. monocytogenes DNA MICHELLE+non-probe Ql (Pos bld culture) Not detected Not Detected [facility] N. meningitidis DNA MICHELLE+non-probe Ql (Pos bld culture) Not detected Not Detected [facility] P. aeruginosa DNA MICHELLE+non-probe Ql (Pos bld culture) Not detected Not Detected [facility] Proteus sp DNA MICHELLE+non-probe Ql (Pos bld culture) Not detected Not Detected [facility] S. agalactiae DNA MICHELLE+non-probe Ql (Pos bld culture) Not detected Not Detected [facility] S. aureus DNA MICHELLE+non-probe Ql (Pos bld culture) Detected Abnormal Not Detected [facility] S. marcescens DNA MICHELLE+non-probe Ql (Pos bld culture) Not detected Not Detected [facility] S. pneumoniae DNA MICHELLE+non-probe Ql (Pos bld culture) Not detected Not Detected [facility] S. pyogenes DNA MICHELLE+non-probe Ql (Pos bld culture) Not detected Not Detected [facility] Staphylococcus sp DNA MICHELLE+non-probe Ql (Pos bld culture) Detected Abnormal Not Detected [facility] Streptococcus sp DNA MICHELLE+non-probe Ql (Pos bld culture) Not detected Not Detected [facility] No Panel InformationOrdered By: Gm Scott on 06-07-2023 Acinetobacter calcoaceticus-sander ii complex DNA Not detected Not Detected [facility] Bacteroides fragilis DNA Not detected Not Detected [facility] Shital auris DNA Not detected Not Detected [facility] Cryptococcus diaz/neoformans DNA Not detected Not Detected [facility] Enterobacterales DNA Not detected Not Detected [facility] Enterococcus faecalis DNA Not detected Not Detected [facility] Enterococcus faecium DNA Not detected Not Detected [facility] Interpretation and review of laboratory results Abnormal [facility] Klebsiella aerogenes DNA Not detected Not Detected [facility] Klebsiella pneumoniae group DNA Not detected Not Detected [facility] mecA/C and MREJ (MRSA) Not detected Not Detected [facility] Salmonella species DNA Not detected Not Detected [facility] Staphylococcus epidermidis DNA Not detected Not Detected [facility] Staphylococcus lugdunensis DNA Not detected Not Detected [facility] Stenotrophomonas maltophilia DNA Not detected Not Detected [facility] Results may be compromised due to volume of BACT\ALERT bottle exceeding 10mLs . The optimal blood volume is 8-10 mls per aerobic/anaerobic blood culture bottle. This test was performed using a multiplex nucleic acid test that detects and identifies multiple bacterial and yeast nucleic acids and select genetic determinants associated with antimicrobial resistance. Culture is necessary to confirm susceptibilities and identify organisms not detected by this test. A Not Detected result for a genetic marker of antimicrobial resistance does not indicate susceptibility to associated antimicrobial drugs or drug classes. Results should be used in conjunction with other clinical and laboratory findings. [facility] No Panel InformationOrdered By: Jeff Hebert on 06-07-2023 Interpretation and review of laboratory results Abnormal [facility] No Panel Informationon 06-07 Interpretation and review of laboratory results Abnormal [facility] Interpretation and review of laboratory results Abnormal [facility] Interpretation and review of laboratory results Abnormal [facility] Portable XR Chest Viewson IMPRESSION: Right IJ CVC in place, no complication. Pulmonary edema. OLOGY EXAM: XR CHEST 1 VIE W PORTABLE, 06/06/2023 23:14 PM COMPARISON: June 02, 2023 CLINICAL INDICATIONS: confirm CVC placement RELEVANT CLINICAL HISTORY: FINDINGS: (Adequate technique) Implanted Devices: Right IJ catheter placed, tip in the SVC, no pneumothorax. Thorax: Postoperative changes as before. Interval development of pulmonary edema. Stable heart size. RADIOLOGY Louie Mahmood MD - 06/07/2023 EXAM: XR CHEST 1 VIEW PORTABLE, 06/06/2023 23:14 PM COMPARISON: June 02, 2023 CLINICAL INDICATIONS: confirm CVC placement RELEVANT CLINICAL HISTORY: FINDINGS: (Adequate technique) Implanted Devices: Right IJ catheter placed, tip in the SVC, no pneumothorax. Thorax: Postoperative changes as before. Interval development of pulmonary edema. Stable heart size. IMPRESSION IMPRESSION: Right IJ CVC in place, no complication. Pulmonary edema. [facility] Portable XR Chest ViewsOrder ed By: Louie Mahmood on 06-07-2023 [facility] Work Phone: Laboratory - Chemistry and C hemistry - challengeon 06-06-2023 Anion gap [Moles/Vol] 13 mmol/L 7 - 17 mmol/L [facility] Chloride [Moles/Vol] 103 mmol/L 98 - 108 mmol/L [facility] CO2 [Moles/Vol] 28 mmol/L 21 - 31 mmol/L [facility] Creatinine [Mass/Vol] 0.95 mg/dL 0.70 - 1.30 mg/dL [facility] Glucose [Mass/Vol] 94 mg/dL 70 - 99 mg/dL [facility] Magnesium [Mass/Vol] 1.7 mg/dL 1.6 - 2.6 mg/dL [facility] Osmolality Calc [Osmolality] 293 [facility] Potassium [Moles/Vol] 3.5 mmol/L 3.5 - 5.0 mmol/L [facility] Sodium [Moles/Vol] 140 mmol/L 135 - 145 mmol/L [facility] Urea nitrogen [Mass/Vol] 16 mg/dL 7 - 25 mg/dL [facility] Urea nitrogen/Creatinine [Mass ratio] 17 mg/mg [facility] Laboratory - Coagulationon 0 06-06-2023 aPTT Coag (PPP) [Time] 41.9 s High [facility] INR Coag (Bld) [Relative time] 2.5 {INR} High 0.9 - 1.1 [facility] PT Coag (PPP) [Time] 26.7 s High [facility] Laboratory - Hematology and Cell countson 06-06-2023 Basophils (Bld) [#/Vol] 0.05 10*3/uL 0.00 - 0.09 K/uL [facility] Basophils/100 WBC (Bld) 0.3 % [facility] Differential cell count method Nom (Bld) Electronic Differential [facility] Eosinophils (Bld) [#/Vol] 0.07 10*3/uL 0.00 - 0.48 K/uL [facility] Eosinophils/100 WBC (Bld) 0.4 % [facility] Erythrocyte distribution width (RBC) [Ratio] 19.4 % High 10.9 - 14.3 % [facility] Hematocrit (Bld) [Volume fraction] 37.1 % Low 39.6 - 48.8 % [facility] Hemoglobin (Bld) [Mass/Vol] 11.5 g/dL Low 13.4 - 16.8 g/dL [facility] Immature granulocytes (Bld) [#/Vol] 0.33 10*3/uL High NINF - 0.07 K/uL [facility] Immature granulocytes/100 WBC (Bld) 2.0 % [facility] Lymphocytes (Bld) [#/Vol] 0.80 10*3/uL Low 0.83 - 3.57 K/uL [facility] Lymphocytes/100 WBC (Bld) 4.9 % [facility] MCH (RBC) [Entitic mass] 28.2 pg 26.1 - 33.3 pg [facility] MCHC (RBC) [Mass/Vol] 31.0 g/dL Low 31.9 - 36.5 g/dL [facility] MCV (RBC) [Entitic vol] 90.9 fL 79.0 - 94.5 fL [facility] Monocytes (Bld) [#/Vol] 1.50 10*3/uL High 0.24 - 0.93 K/uL [facility] Monocytes/100 WBC (Bld) 9.2 % [facility] Neutrophils (Bld) [#/Vol] 13.63 10*3/uL High 1.57 - 6.19 K/uL [facility] Nucleated RBC/100 WBC (Bld) [Ratio] 0.0 % NINF [facility] Platelet mean volume (Bld) [Entitic vol] 10.3 fL 8.7 - 12.3 fL [facility] Platelets (Bld) [#/Vol] 250 10*3/uL 146 - 337 K/uL [facility] RBC (Bld) [#/Vol] 4.08 10*6/uL Low [facility] Segmented neutrophils/100 WBC (Bld) 83.2 % [facility] WBC (Bld) [#/Vol] 16.38 10*3/uL High 3.73 - 10 .10 K/uL [facility] No Panel Informationon 06-06 eGFR, CKD-EPI, Male 82 - PINF [facility] Comment on above: Reported eGFR is bas ed on the CKD-EPI 2020 equation using creatinine, age, and sex. Interpretation and review of laboratory results Normal [facility] Interpretation and review of laboratory results Abnormal [facility] Interpretation and review of laboratory results Abnormal [facility] Portable XR Chest Viewson Radiology Study observation (narrative) [facility] Progress Noteson 04-20-2021 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 Interface Message Text I evaluated Markus Nava during this telemedicine visit. I reviewed the resident's documentation. I agree with the resident's decision making as documented in the resident's note. Normal [facility] 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 Interface Message Text Normal [facility] Care Plan Noteon 04-05-2021 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 Interface Message Text Normal [facility] GLUCOSE, FINGERSTICK-IN OFFI CEon 04-05-2021 Glucose [Mass/Vol] 91 mg/dL Normal 80-116 [facility] Comment on above: Performed By: #### 8 [id number] ####NURSING GLUCOSE [id number] [place], [address] PROTHROMBIN TIME AND INRon 1 06-05-2020 INR Coag (PPP) [Relative time] 3.52 {INR} High 0.90-1.10 [facility] Comment on above: Performed By: #### P T ####[facility] PATHOLOGY [id number] [place], [place], PT Coag (PPP) [Time] 38.6 s High 9.7-12.9 [facility] Comment on above: Performed By: #### P T ####S PATHOLOGY [id number] [place], [place], Progress Noteson 04-05-2021 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 Interface Message Text Normal [facility] 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 Interface Message Text Normal [facility] 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 Interface Message Text Normal [facility] Telephone Encounteron 2020 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 Interface Message Text Normal [facility] Care Plan Noteon 04-04-2021 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 Interface Message Text Normal [facility] Consultson 04-04-2021 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 Interface Message Text Normal [facility] 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 Interface Message Text Normal [facility] 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 Interface Message Text Normal [facility] 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 Interface Message Text Normal [facility] GLUCOSE, FINGERSTICK-IN OFFI CEon 04-04-2021 Glucose [Mass/Vol] 97 mg/dL Normal 80-116 [facility] Comment on above: Performed By: #### 8 2948 ####NURSING GLUCOSE [id number] [place], [address] Glucose [Mass/Vol] 100 mg/dL Normal 80-116 [facility] Comment on above: Performed By: #### 8 2948 ####NURSING GLUCOSE [id number] [place], [address] Glucose [Mass/Vol] 109 mg/dL Normal 80-116 [facility] Comment on above: Performed By: #### 8 2948 ####NURSING GLUCOSE [id number] [place], [address] Glucose [Mass/Vol] 97 mg/dL Normal 80-116 [facility] Comment on above: Performed By: #### 8 2948 ####NURSING GLUCOSE [id number] [place], [address] PROTHROMBIN TIME AND INRon 1 06-04-2020 INR Coag (PPP) [Relative time] 3.89 {INR} High 0.90-1.10 [facility] Comment on above: Performed By: #### P T ####S PATHOLOGY [id number] [place], [place], PT Coag (PPP) [Time] 42.6 s High 9.7-12.9 [facility] Comment on above: Performed By: #### P T ####S PATHOLOGY [id number] [place] [address], Progress Noteson 04-04-2021 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 Interface Message Text Normal [facility] Care Plan Noteon 04-03-2021 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 Interface Message Text Normal [facility] GLUCOSE, FINGERSTICK-IN OFFI CEon 04-03-2021 Glucose [Mass/Vol] 104 mg/dL Normal 80-116 [facility] Comment on above: Performed By: #### 8 2948 ####NURSING GLUCOSE [id number] [place], [address] Glucose [Mass/Vol] 102 mg/dL Normal 80-116 [facility] Comment on above: Performed By: #### 8 2948 ####NURSING GLUCOSE [id number] [place], [address] Glucose [Mass/Vol] 97 mg/dL Normal 80-116 [facility] Comment on above: Performed By: #### 8 2948 ####NURSING GLUCOSE [id number] [place], [address] PROTHROMBIN TIME AND INRon 1 INR Coag (PPP) [Relative time] 3.18 {INR} High 0.90-1.10 [facility] Comment on above: Performed By: #### P T ####S PATHOLOGY [id number] [place] [address], PT Coag (PPP) [Time] 34.9 s High 9.7-12.9 [facility] Comment on above: Performed By: #### P T ####S PATHOLOGY [id number] [place], [place], Care Plan Noteon 04-02-2021 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 Interface Message Text Normal [facility] Consultson 04-02-2021 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 Interface Message Text Normal [facility] GLUCOSE, FINGERSTICK-IN OFFI CEon 04-02-2021 Glucose [Mass/Vol] 121 mg/dL High 80-116 [facility] Comment on above: Performed By: #### 8 2948 ####NURSING GLUCOSE [id number] [place] [address], [address] Glucose [Mass/Vol] 99 mg/dL Normal 80-116 [facility] Comment on above: Result Comment: No A ction Performed By: #### 8 2948 ####NURSING GLUCOSE [id number] [place], [address] Glucose [Mass/Vol] 104 mg/dL Normal 80-116 [facility] Comment on above: Performed By: #### 8 2948 ####NURSING GLUCOSE [id number] [place] [address], [address] Glucose [Mass/Vol] 109 mg/dL Normal 80-116 [facility] Comment on above: Performed By: #### 8 2948 ####NURSING GLUCOSE [id number] [place], [address] PROTHROMBIN TIME AND INRon 1 INR Coag (PPP) [Relative time] 2.75 {INR} High 0.90-1.10 [facility] Comment on above: Performed By: #### P T ####S PATHOLOGY [id number] [place], [place], PT Coag (PPP) [Time] 30.8 s High 9.7-12.9 [facility] Comment on above: Performed By: #### P T ####S PATHOLOGY [id number] [place], [place], Progress Noteson 04-02-2021 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 Interface Message Text Normal [facility] Care Plan Noteon 04-01-2021 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 Interface Message Text Normal [facility] GLUCOSE, FINGERSTICK-IN OFFI CEon 04-01-2021 Glucose [Mass/Vol] 117 mg/dL High 80-116 [facility] Comment on above: Result Comment: Foll ow Protocol Performed By: #### 8 2948 ####NURSING GLUCOSE [id number] [place], [address] Glucose [Mass/Vol] 116 mg/dL Normal 80-116 [facility] Comment on above: Performed By: #### 8 2948 ####NURSING GLUCOSE [id number] [place], [address] Glucose [Mass/Vol] 99 mg/dL Normal 80-116 [facility] Comment on above: Result Comment: Foll ow Protocol Performed By: #### 8 2948 ####NURSING GLUCOSE [id number] [place], [address] Glucose [Mass/Vol] 106 mg/dL Normal 80-116 [facility] Comment on above: Performed By: #### 8 2948 ####NURSING GLUCOSE [id number] [place], [address] PROTHROMBIN TIME AND INRon 1 INR Coag (PPP) [Relative time] 2.37 {INR} High 0.90-1.10 [facility] Comment on above: Performed By: #### P T ####[facility] PATH[facility] [id number] [place] [address], PT Coag (PPP) [Time] 26.5 s High 9.7-12.9 [facility] Comment on above: Performed By: #### P T ####S PATHOLOGY [id number] [place] [address], Progress Noteson 04-01-2021 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 Interface Message Text Normal [facility] 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 Interface Message Text Normal [facility] Treatment Plan Noteon 2020 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 Interface Message Text Normal [facility] BASIC METABOLIC PANELon 03-05 Anion gap [Moles/Vol] 12 mmol/L Normal 10-20 [facility] Comment on above: Performed By: #### C H8 ####[facility] PATH[facility] [id number] [place] [address], Calcium [Mass/Vol] 8.4 mg/dL Normal 8.4-10.4 [facility] Comment on above: Performed By: #### C H8 ####S PATHOLOGY [id number] [place], [place], Chloride [Moles/Vol] 101 mmol/L Normal 97-111 [facility] Comment on above: Performed By: #### C H8 ####S PATHOLOGY [id number] [place], CO2 [Moles/Vol] 25 mmol/L Normal 21-30 [facility] Comment on above: Performed By: #### C H8 ####[facility] PATHOLOGY [id number] [place], Creatinine [Mass/Vol] 1.04 mg/dL Normal 0.80-1.30 [facility] Comment on above: Performed By: #### C H8 ####[facility] PATHOLOGY [id number] [place] [address], ESTIMATED GFR (CKD-EPI) 70 mL/min/1.73sqm Normal >=60 [facility] Comment on above: Performed By: #### C H8 ####S PATHOLOGY [id number] [place], Glucose [Mass/Vol] 88 mg/dL Normal 80-116 [facility] Comment on above: Performed By: #### C H8 ####S PATHOLOGY [id number] [place], [place], Potassium [Moles/Vol] 4.8 mmol/L Normal 3.3-5.3 [facility] Comment on above: Performed By: #### C H8 ####S PATHOLOGY [id number] [place], Sodium [Moles/Vol] 133 mmol/L Low 135-148 [facility] Comment on above: Performed By: #### C H8 ####S PATHOLOGY [id number] [place], [place], Urea nitrogen [Mass/Vol] 22 mg/dL Normal 8-22 [facility] Comment on above: Performed By: #### C H8 ####[facility] PATHOLOGY [id number] [place], CBC WITH DIFFERENTIALon 03-05 Basophils (Bld) [#/Vol] 0.06 10*3/uL Normal 0.00-0.[address] Comment on above: Performed By: #### C BCDSAT ####[facility] PATHOLOGY [id number] [place], Basophils/100 WBC (Bld) 0.7 % Normal <=1.[address] [facility] Comment on above: Performed By: #### C BCDSAT ####[facility] PATHOLOGY [id number] [place], Eosinophils (Bld) [#/Vol] 0.41 10*3/uL Normal 0.00-0.[address] [facility] Comment on above: Performed By: #### C BCDSAT ####[facility] PATHOLOGY [id number] [place] [address], Eosinophils/100 WBC (Bld) 4.7 % High 0.1-4.[address] [facility] Comment on above: Performed By: #### C BCDSAT ####[facility] PATHOLOGY [id number] [place] [address], Erythrocyte distribution width (RBC) [Ratio] 15.7 % High 11.5-14.[address] [facility] Comment on above: Performed By: #### C BCDSAT ####[facility] PATHOLOGY [id number] [place] [address], Hematocrit (Bld) [Volume fraction] 28.9 % Low 41.0-53.[address] [facility] Comment on above: Performed By: #### C BCDSAT ####[facility] PATHOLOGY [id number] [place], Hemoglobin (Bld) [Mass/Vol] 9.6 g/dL Low 13.9-16.[address] [facility] Comment on above: Performed By: #### C BCDSAT ####[facility] PATHOLOGY [id number] [place] [address], Lymphocytes (Bld) [#/Vol] 1.14 10*3/uL Normal 1.00-4.80 [facility] Comment on above: Performed By: #### Deborah GAMEZAT ####[facility] PATHOLOGY [id number] [place] [address], Lymphocytes/100 WBC (Bld) 12.8 % Low 24.0-44.[address] [facility] Comment on above: Performed By: #### Deborah GAMEZAT ####[facility] PATHOLOGY [id number] [place] [address], MCH (RBC) [Entitic mass] 31.5 pg Normal 26.0-34.[address] [facility] Comment on above: Performed By: #### Deborah GAMEZAT ####[facility] PATHOLOGY [id number] [place] [address], MCHC (RBC) [Mass/Vol] 33.3 g/dL Normal 32.0-35.9 [facility] Comment on above: Performed By: #### Deborah GAMEZAT ####[facility] PATHOLOGY [id number] [place] [address], MCV (RBC) [Entitic vol] 95 fL Normal 80-100 [facility] Comment on above: Performed By: #### Deborah GAMEZAT ####[facility] PATHOLOGY [id number] [place] [address], MONOCYTE DISTRIBUTION WIDTH Normal [facility] Comment on above: Performed By: #### Deborah GAMEZAT ####[facility] PATHOLOGY [id number] [place] [address], Monocytes (Bld) [#/Vol] 0.95 10*3/uL Normal 0.20-1.00 [facility] Comment on above: Performed By: #### Deborah GAMEZAT ####[facility] PATHOLOGY [id number] [place] [address], Monocytes/100 WBC (Bld) 10.7 % Normal 2.0-11.0 [facility] Comment on above: Performed By: #### Deborah GAMEZAT ####[facility] PATHOLOGY [id number] [place], Neutrophils (Bld) [#/Vol] 6.32 10*3/uL Normal 1.50-8.00 [facility] Comment on above: Performed By: #### Deborah GAMEZAT ####[facility] PATHOLOGY [id number] [place], Neutrophils/100 WBC (Bld) 71.2 % Normal 31.0-76.0 [facility] Comment on above: Performed By: #### Deborah GAMEZAT ####[facility] PATHOLOGY [id number] [place], Platelet mean volume (Bld) [Entitic vol] 9.5 fL Normal 7.5-11.2 [facility] Comment on above: Performed By: #### Deborah GAMEZAT ####[facility] PATHOLOGY [id number] [place], Platelets (Bld) [#/Vol] 346 10*3/uL Normal 150-400 [facility] Comment on above: Performed By: #### Deborah GAMEZAT ####[facility] PATHOLOGY [id number] [place], RBC (Bld) [#/Vol] 3.06 10*6/uL Low 4.50-5.90 [facility] Comment on above: Performed By: #### Deborah GAMEZAT ####[facility] PATHOLOGY [id number] [place], WBC (Bld) [#/Vol] 8.9 10*3/uL Normal 4.5-11.5 [facility] Comment on above: Performed By: #### Deborah GAMEZAT ####[facility] PATHOLOGY [id number] [place], Care Plan Noteon 03-31-2021 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 Interface Message Text Normal [facility] Consultson 03-31-2021 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 Interface Message Text Normal [facility] 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 Interface Message Text Normal [facility] GLUCOSE, FINGERSTICK-IN OFFI CEon 03-31-2021 Glucose [Mass/Vol] 133 mg/dL High 80-116 [facility] Comment on above: Performed By: #### 8 2948 ####NURSING GLUCOSE [id number] [place], [address] Glucose [Mass/Vol] 102 mg/dL Normal 80-116 [facility] Comment on above: Performed By: #### 8 2948 ####NURSING GLUCOSE [id number] [place], [address] Glucose [Mass/Vol] 116 mg/dL Normal 80-116 [facility] Comment on above: Performed By: #### 8 2948 ####NURSING GLUCOSE [id number] [place], [address] Glucose [Mass/Vol] 122 mg/dL High 80-116 [facility] Comment on above: Performed By: #### 8 2948 ####NURSING GLUCOSE [id number] [place] [address], [address] HEMOGLOBIN A1Con 03-31-2021 Glucose [Mass/Vol] 134 mg/dL Normal [facility] Comment on above: Order Comment: HbA1c of 5.7-6.4% have increased risk for diabetes and CV(Source :ADA 2014 Standard of Medical Care in Diabetes) Performed By: #### H B A1C ####S PATHOLOGY [id number] [place] [address], HbA1c (Bld) [Mass fraction] 6.3 % High 4.0-5.6 [facility] Comment on above: Order Comment: HbA1c of 5.7-6.4% have increased risk for diabetes and CV(Source :ADA 2014 Standard of Medical Care in Diabetes) Performed By: #### H B A1C ####S PATHOLOGY [id number] [place] [address], PROTHROMBIN TIME AND INRon 1 INR Coag (PPP) [Relative time] 2.01 {INR} High 0.90-1.10 [facility] Comment on above: Performed By: #### P T ####[facility] [id number] [place] [address], PT Coag (PPP) [Time] 22.6 s High 9.7-12.9 [facility] Comment on above: Performed By: #### P T ####[facility] PATH[facility] [id number] [place] [address], Progress Noteson 03-31-2021 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 Interface Message Text Normal [facility] 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 Interface Message Text Normal [facility] 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 Interface Message Text Normal [facility] 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 Interface Message Text Normal [facility] VITAMIN D, 25-HYDROXYon 10-2 VITD25 24.2 ng/mL Low 30.0-100.0 [facility] Comment on above: Performed By: #### V ITD25 ####[facility] PATH[facility] [id number] [place], Care Plan Noteon 03-30-2021 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 Interface Message Text Normal [facility] Consultson 03-30-2021 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 Interface Message Text Consult request received. Patient will be seen for rehab psych consult, ideally on 03/30/21. Shantal Sims, PhD Normal [facility] 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 Interface Message Text Normal [facility] 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 Interface Message Text Normal [facility] 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 Interface Message Text Normal [facility] GLUCOSE, FINGERSTICK-IN OFFI CEon 03-30-2021 Glucose [Mass/Vol] 116 mg/dL Normal 80-116 [facility] Comment on above: Performed By: #### 8 2948 ####NURSING GLUCOSE [id number] [place], [address] Glucose [Mass/Vol] 129 mg/dL High 80-116 [facility] Comment on above: Performed By: #### 8 2948 ####NURSING GLUCOSE [id number] [place], [address] Glucose [Mass/Vol] 108 mg/dL Normal 80-116 [facility] Comment on above: Result Comment: Foll ow Protocol Performed By: #### 8 2948 ####NURSING GLUCOSE [id number] [place], [address] Glucose [Mass/Vol] 112 mg/dL Normal 80-116 [facility] Comment on above: Result Comment: Salvador jovel RN, APN, MD Performed By: #### 8 2948 ####NURSING GLUCOSE [id number] [place], [address] Glucose [Mass/Vol] 116 mg/dL Normal 80-116 [facility] Comment on above: Performed By: #### 8 2948 ####NURSING GLUCOSE [id number] [place], [address] PROTHROMBIN TIME AND INRon 1 INR Coag (PPP) [Relative time] 2.05 {INR} High 0.90-1.10 [facility] Comment on above: Performed By: #### P T ####[facility] [id number] [place], PT Coag (PPP) [Time] 23.0 s High 9.7-12.9 [facility] Comment on above: Performed By: #### P T ####[facility] PATH[facility] [id number] [place], Progress Noteson 03-30-2021 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 Interface Message Text Normal [facility] 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 Interface Message Text Normal [facility] 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 Interface Message Text Normal [facility] Care Plan Noteon 03-29-2021 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 Interface Message Text Normal [facility] Consultson 03-29-2021 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 Interface Message Text Normal [facility] 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 Interface Message Text Normal [facility] 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 Interface Message Text Normal [facility] Discharge Planning Noteon 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 Interface Message Text Normal [facility] 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 Interface Message Text Normal [facility] FL MODIFIED BARIUM SWALLOWon 03-29-2021 [place] MODIFIED BARIUM SWALLOW Normal [facility] GLUCOSE, FINGERSTICK-IN OFFI CEon 03-29-2021 Glucose [Mass/Vol] 128 mg/dL High 80-116 [facility] Comment on above: Performed By: #### 8 2948 ####NURSING GLUCOSE [id number] [place], [address] Glucose [Mass/Vol] 97 mg/dL Normal 80-116 [facility] Comment on above: Performed By: #### 8 2948 ####NURSING GLUCOSE [id number] [place], [address] Glucose [Mass/Vol] 134 mg/dL High 80-116 [facility] Comment on above: Performed By: #### 8 2948 ####NURSING GLUCOSE [id number] [place], [address] Glucose [Mass/Vol] 135 mg/dL High 80-116 [facility] Comment on above: Performed By: #### 8 2948 ####NURSING GLUCOSE [id number] [place], [address] H AND Josue 03-29-2021 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 Interface Message Text Normal [facility] Progress Noteson 03-29-2021 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 Interface Message Text Normal [facility] 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 Interface Message Text Normal [facility] 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 Interface Message Text Normal [facility] 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 Interface Message Text Normal [facility] 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 Interface Message Text This RN and CCP unable to obtain AM labs on PT. PT extremely difficult stick and will not have anyone else try. This RN notified Dr. Jolly and will notify day shift to have IV team attempt. Normal [facility] BASIC METABOLIC PANELon 03-05 Anion gap [Moles/Vol] 13 mmol/L Normal 10-20 [facility] Comment on above: Performed By: #### Deborah H8, MG ####[facility] [id number] [place], Calcium [Mass/Vol] 8.2 mg/dL Low 8.4-10.4 [facility] Comment on above: Performed By: #### Deborah H8, MG ####[facility] PATH[facility] [id number] [place], Chloride [Moles/Vol] 105 mmol/L Normal 97-111 [facility] Comment on above: Performed By: #### Deborah H8, MG ####[facility] PATH[facility] [id number] [place], CO2 [Moles/Vol] 21 mmol/L Normal 21-30 [facility] Comment on above: Performed By: #### Deborah H8, MG ####[facility] PATH[facility] [id number] [place], Creatinine [Mass/Vol] 1.09 mg/dL Normal 0.80-1.30 [facility] Comment on above: Performed By: #### C H8, MG ####[facility] [id number] [place], ESTIMATED GFR (CKD-EPI) 66 mL/min/1.73sqm Normal >=60 [facility] Comment on above: Performed By: #### C H8, MG ####[facility] [id number] [place], Glucose [Mass/Vol] 120 mg/dL High 80-116 [facility] Comment on above: Performed By: #### C H8, MG ####[facility] PATH[facility] [id number] [place], Potassium [Moles/Vol] 4.8 mmol/L Normal 3.3-5.3 [facility] Comment on above: Result Comment: Hemo lysis present Performed By: #### C H8, MG ####[facility] [id number] [place], Sodium [Moles/Vol] 134 mmol/L Low 135-148 [facility] Comment on above: Performed By: #### C H8, MG ####[facility] PATH[facility] [id number] [place], Urea nitrogen [Mass/Vol] 18 mg/dL Normal 8-22 [facility] Comment on above: Performed By: #### C H8, MG ####[facility] PATH[facility] [id number] [place], Care Plan Noteon 03-28-2021 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 Interface Message Text Normal [facility] Consultson 03-28-2021 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 Interface Message Text Normal [facility] 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 Interface Message Text Normal [facility] 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 Interface Message Text Normal [facility] GLUCOSE, FINGERSTICK-IN OFFI CEon 03-28-2021 Glucose [Mass/Vol] 100 mg/dL Normal 80-[address] [facility] Comment on above: Performed By: #### 8 2948 ####NURSING GLUCOSE [id number] [place], Glucose [Mass/Vol] 89 mg/dL Normal 80-116 [facility] Comment on above: Performed By: #### 8 2948 ####NURSING GLUCOSE [id number] [place], Glucose [Mass/Vol] 163 mg/dL High 80-116 [facility] Comment on above: Performed By: #### 8 2948 ####NURSING GLUCOSE [id number] [place], MAGNESIUMon 03-28-2021 Magnesium [Mass/Vol] 2.2 mg/dL Normal 1.6-2.8 [facility] Comment on above: Result Comment: Hemo lysis present Performed By: #### C H8, MG ####[facility] [id number] [place], PROTHROMBIN TIME AND INRon 1 INR Coag (PPP) [Relative time] 1.53 {INR} High 0.90-1.10 [facility] Comment on above: Performed By: #### P T ####[facility] [id number] [place], [place] Coag (PPP) [Time] 17.2 s High 9.7-12.9 [facility] Comment on above: Performed By: #### P T ####[facility] [id number] [place], Progress Noteson 03-28-2021 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 Interface Message Text Dr. Munoz notified unable to collect ordered CBC multiple staff attempts to obtain unsuccessful. PICC positional not providing adequate blood return MD aware. Will continue to monitor. Normal [facility] 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 Interface Message Text Normal [facility] BASIC METABOLIC PANELon 03-05 Anion gap [Moles/Vol] 15 mmol/L Normal 10-[address] [facility] Comment on above: Performed By: #### C H8, HEPATIC, MG ####[facility] PATH[facility] [id number] [place], Calcium [Mass/Vol] 8.3 mg/dL Low 8.4-10.4 [facility] Comment on above: Performed By: #### C H8, HEPATIC, MG ####[facility] [id number] [place], Chloride [Moles/Vol] 101 mmol/L Normal 97-111 [facility] Comment on above: Performed By: #### Deborah Jeronimo, HEPATIC, MG ####[facility] [id number] [place], CO2 [Moles/Vol] 25 mmol/L Normal 21-30 [facility] Comment on above: Performed By: #### Deborah Jeronimo, HEPATIC, MG ####[facility] [id number] [place], Creatinine [Mass/Vol] 1.20 mg/dL Normal 0.80-1.30 [facility] Comment on above: Performed By: #### Deborah Jeronimo, HEPATIC, MG ####[facility] [id number] [place], ESTIMATED GFR (CKD-EPI) 59 mL/min/1.73sqm Low >=60 [facility] Comment on above: Performed By: #### Deborah Jeronimo, HEPATIC, MG ####[facility] PATH[facility] [id number] [place], Glucose [Mass/Vol] 128 mg/dL High 80-116 [facility] Comment on above: Performed By: #### Deborah Jeronimo, HEPATIC, MG ####[facility] [id number] [place], Potassium [Moles/Vol] 4.2 mmol/L Normal 3.3-5.3 [facility] Comment on above: Performed By: #### Deborah Jeronimo, HEPATIC, MG ####[facility] [id number] [place], Sodium [Moles/Vol] 137 mmol/L Normal 135-148 [facility] Comment on above: Performed By: #### Deborah Jeronimo, HEPATIC, MG ####[facility] [id number] [place], Urea nitrogen [Mass/Vol] 23 mg/dL High 8-22 [facility] Comment on above: Performed By: #### Deborah Jeronimo, HEPATIC, MG ####[facility] [id number] [place], CBC WITH DIFFERENTIALon 03-05 Basophils (Bld) [#/Vol] 0.10 10*3/uL Normal 0.00-0.20 [facility] Comment on above: Performed By: #### C BCDSAT ####[facility] PATHOLOGY [id number] [place], Basophils/100 WBC (Bld) 1.1 % Normal <=1.9 [facility] Comment on above: Performed By: #### C BCDSAT ####[facility] PATHOLOGY [id number] [place], Eosinophils (Bld) [#/Vol] 0.28 10*3/uL Normal 0.00-0.70 [facility] Comment on above: Performed By: #### C BCDSAT ####[facility] PATHOLOGY [id number] [place] [address], Eosinophils/100 WBC (Bld) 2.9 % Normal 0.1-4.0 [facility] Comment on above: Performed By: #### C BCDSAT ####[facility] PATHOLOGY [id number] [place], Erythrocyte distribution width (RBC) [Ratio] 14.2 % Normal 11.5-14.5 [facility] Comment on above: Performed By: #### C BCDSAT ####[facility] PATHOLOGY [id number] [place], Hematocrit (Bld) [Volume fraction] 25.6 % Low 41.0-53.0 [facility] Comment on above: Performed By: #### C BCDSAT ####[facility] PATHOLOGY [id number] [place], Hemoglobin (Bld) [Mass/Vol] 8.6 g/dL Low 13.9-16.3 [facility] Comment on above: Performed By: #### C BCDSAT ####[facility] PATHOLOGY [id number] [place], Lymphocytes (Bld) [#/Vol] 0.92 10*3/uL Low 1.00-4.80 [facility] Comment on above: Performed By: #### C BCDSAT ####[facility] PATHOLOGY [id number] [place], Lymphocytes/100 WBC (Bld) 9.2 % Low 24.0-44.0 [facility] Comment on above: Performed By: #### C BCDSAT ####[facility] PATHOLOGY [id number] [place], MCH (RBC) [Entitic mass] 31.1 pg Normal 26.0-34.0 [facility] Comment on above: Performed By: #### C BCDSAT ####[facility] PATHOLOGY [id number] [place], MCHC (RBC) [Mass/Vol] 33.5 g/dL Normal 32.0-35.9 [facility] Comment on above: Performed By: #### C BCDSAT ####[facility] PATHOLOGY [id number] [place] [address], MCV (RBC) [Entitic vol] 93 fL Normal 80-100 [facility] Comment on above: Performed By: #### C BCDSAT ####[facility] PATHOLOGY [id number] [place], MONOCYTE DISTRIBUTION WIDTH Normal [facility] Comment on above: Performed By: #### C BCDSAT ####[facility] PATHOLOGY [id number] [place], Monocytes (Bld) [#/Vol] 1.14 10*3/uL High 0.20-1.00 [facility] Comment on above: Performed By: #### C BCDSAT ####[facility] PATHOLOGY [id number] [place], Monocytes/100 WBC (Bld) 11.4 % High 2.0-11.0 [facility] Comment on above: Performed By: #### C BCDSAT ####[facility] PATHOLOGY [id number] [place], Neutrophils (Bld) [#/Vol] 7.50 10*3/uL Normal 1.50-8.00 [facility] Comment on above: Performed By: #### C BCDSAT ####[facility] PATHOLOGY [id number] [place], Neutrophils/100 WBC (Bld) 75.4 % Normal 31.0-76.0 [facility] Comment on above: Performed By: #### C HUMERADSAT ####[facility] PATHOLOGY [id number] [place], Platelet mean volume (Bld) [Entitic vol] 9.3 fL Normal 7.5-11.2 [facility] Comment on above: Performed By: #### Deborah GAMEZAT ####[facility] PATHOLOGY [id number] [place], Platelets (Bld) [#/Vol] 292 10*3/uL Normal 150-400 [facility] Comment on above: Performed By: #### Deborah GAMEZAT ####[facility] PATHOLOGY [id number] [place] [address], RBC (Bld) [#/Vol] 2.75 10*6/uL Low 4.50-5.90 [facility] Comment on above: Performed By: #### Deborah GAMEZAT ####S PATHOLOGY [id number] [place], WBC (Bld) [#/Vol] 9.9 10*3/uL Normal 4.5-11.5 [facility] Comment on above: Performed By: #### Deborah GAMEZAT ####S PATHOLOGY [id number] [place], GLUCOSE, FINGERSTICK-IN OFFI CEon 03-27-2021 Glucose [Mass/Vol] 131 mg/dL High 80-116 [facility] Comment on above: Performed By: #### 8 2948 ####NURSING GLUCOSE [id number] [place], [place], Glucose [Mass/Vol] 138 mg/dL High 80-[address] [facility] Comment on above: Performed By: #### 8 2948 ####NURSING GLUCOSE [id number] [place], [address] HEPATIC FUNCTION PANELon Albumin [Mass/Vol] 2.7 g/dL Low 3.4-5.1 [facility] Comment on above: Performed By: #### Deborah Jeronimo, HEPATIC, MG ####S PATHOLOGY [id number] [place], ALK 102 IU/L Normal 40-200 [facility] Comment on above: Performed By: #### Deborah Jeronimo, HEPATIC, MG ####[facility] [id number] [place], ALT [Catalytic activity/Vol] 51 U/L High 7-40 [facility] Comment on above: Performed By: #### Deborah Jeronimo, HEPATIC, MG ####[facility] [id number] [place], AST [Catalytic activity/Vol] 44 U/L High 7-40 [facility] Comment on above: Performed By: #### Deborah Jeronimo, HEPATIC, MG ####S PATHOLOGY [id number] [place], Bilirubin [Mass/Vol] 1.2 mg/dL Normal 0.1-1.5 [facility] Comment on above: Performed By: #### Deborah Jeornimo, HEPATIC, MG ####[facility] [id number] [place], Bilirubin.direct [Mass/Vol] 0.40 mg/dL High 0.10-0.[address] [facility] Comment on above: Performed By: #### Deborah Jeronimo, HEPATIC, MG ####[facility] [id number] [place], Protein [Mass/Vol] 6.3 g/dL Normal 5.7-8.1 [facility] Comment on above: Performed By: #### Deborah Jeronimo, HEPATIC, MG ####[facility] [id number] [place], MAGNESIUMon 03-27-2021 Magnesium [Mass/Vol] 2.4 mg/dL Normal 1.6-2.8 [facility] Comment on above: Performed By: #### Deborah Willoughby8, HEPATIC, MG ####[facility] PATHOLOGY [id number] [place], PROTHROMBIN TIME AND INRon 1 INR Coag (PPP) [Relative time] 1.47 {INR} High 0.90-1.10 [facility] Comment on above: Performed By: #### P T ####[facility] PATHOLOGY [id number] [place], PT Coag (PPP) [Time] 16.6 s High 9.7-12.9 [facility] Comment on above: Performed By: #### P T ####[facility] PATHOLOGY [id number] [place] [address], Progress Noteson 03-27-2021 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 Interface Message Text Normal [facility] CBC WITH DIFFERENTIALon 03-05 Basophils (Bld) [#/Vol] 0.09 10*3/uL Normal 0.00-0.20 [facility] Comment on above: Performed By: #### C BCDSAT ####[facility] PATHOLOGY [id number] [place] [address], Basophils/100 WBC (Bld) 0.7 % Normal <=1.9 [facility] Comment on above: Performed By: #### C BCDSAT ####[facility] PATHOLOGY [id number] [place], Eosinophils (Bld) [#/Vol] 0.25 10*3/uL Normal 0.00-0.70 [facility] Comment on above: Performed By: #### C BCDSAT ####[facility] PATHOLOGY [id number] [place] [address], Eosinophils/100 WBC (Bld) 1.9 % Normal 0.1-4.0 [facility] Comment on above: Performed By: #### C BCDSAT ####S PATHOLOGY [id number] [place], Erythrocyte distribution width (RBC) [Ratio] 14.4 % Normal 11.5-14.5 [facility] Comment on above: Performed By: #### C BCDSAT ####[facility] PATHOLOGY [id number] [place], Hematocrit (Bld) [Volume fraction] 25.3 % Low 41.0-53.0 [facility] Comment on above: Performed By: #### C BCDSAT ####[facility] PATHOLOGY [id number] [place], Hemoglobin (Bld) [Mass/Vol] 8.4 g/dL Low 13.9-16.3 [facility] Comment on above: Performed By: #### C BCDSAT ####[facility] PATHOLOGY [id number] [place], Lymphocytes (Bld) [#/Vol] 0.98 10*3/uL Low 1.00-4.80 [facility] Comment on above: Performed By: #### C BCDSAT ####[facility] PATHOLOGY [id number] [place] [address], Lymphocytes/100 WBC (Bld) 7.6 % Low 24.0-44.0 [facility] Comment on above: Performed By: #### C BCDSAT ####[facility] PATHOLOGY [id number] [place], MCH (RBC) [Entitic mass] 31.1 pg Normal 26.0-34.0 [facility] Comment on above: Performed By: #### C BCDSAT ####[facility] PATHOLOGY [id number] [place], MCHC (RBC) [Mass/Vol] 33.3 g/dL Normal 32.0-35.9 [facility] Comment on above: Performed By: #### C BCDSAT ####[facility] PATHOLOGY [id number] [place], MCV (RBC) [Entitic vol] 93 fL Normal 80-100 [facility] Comment on above: Performed By: #### C BCDSAT ####[facility] PATHOLOGY [id number] [place], MONOCYTE DISTRIBUTION WIDTH Normal [facility] Comment on above: Performed By: #### C BCMARIAMAAT ####[facility] PATHOLOGY [id number] [place], Monocytes (Bld) [#/Vol] 1.53 10*3/uL High 0.20-1.00 [facility] Comment on above: Performed By: #### C BCDSAT ####[facility] PATHOLOGY [id number] [place], Monocytes/100 WBC (Bld) 11.9 % High 2.0-11.0 [facility] Comment on above: Performed By: #### C BCDSAT ####[facility] PATHOLOGY [id number] [place], Neutrophils (Bld) [#/Vol] 10.02 10*3/uL High 1.50-8.[address] [facility] Comment on above: Performed By: #### C BCDSAT ####[facility] PATHOLOGY [id number] [place], Neutrophils/100 WBC (Bld) 77.9 % High 31.0-76.[address] [facility] Comment on above: Performed By: #### C BCDSAT ####[facility] PATHOLOGY [id number] [place], Platelet mean volume (Bld) [Entitic vol] 9.2 fL Normal 7.5-11.[address] [facility] Comment on above: Performed By: #### C BCDSAT ####[facility] PATHOLOGY [id number] [place], Platelets (Bld) [#/Vol] 282 10*3/uL Normal 150-[address] [facility] Comment on above: Performed By: #### C BCDSAT ####[facility] PATHOLOGY [id number] [place], RBC (Bld) [#/Vol] 2.71 10*6/uL Low 4.50-5.[address] [facility] Comment on above: Performed By: #### C BCDSAT ####[facility] PATHOLOGY [id number] [place], WBC (Bld) [#/Vol] 12.9 10*3/uL High 4.5-11.5 [facility] Comment on above: Performed By: #### Deborah GAMEZAT ####[facility] PATHOLOGY [id number] [place] [address], Basophils (Bld) [#/Vol] 0.08 10*3/uL Normal 0.00-0.20 [facility] Comment on above: Performed By: #### Deborah GAMEZAT ####[facility] PATHOLOGY [id number] [place] [address], Basophils/100 WBC (Bld) 0.6 % Normal <=1.9 [facility] Comment on above: Performed By: #### Deborah GAMEZAT ####[facility] PATHOLOGY [id number] [place] [address], Eosinophils (Bld) [#/Vol] 0.24 10*3/uL Normal 0.00-0.70 [facility] Comment on above: Performed By: #### Deborah GAMEZAT ####[facility] PATHOLOGY [id number] [place] [address], Eosinophils/100 WBC (Bld) 2.0 % Normal 0.1-4.0 [facility] Comment on above: Performed By: #### Deborah GAMEZAT ####[facility] PATHOLOGY [id number] [place] [address], Erythrocyte distribution width (RBC) [Ratio] 14.4 % Normal 11.5-14.5 [facility] Comment on above: Performed By: #### Deborah GAMEZAT ####[facility] PATHOLOGY [id number] [place] [address], Hematocrit (Bld) [Volume fraction] 27.1 % Low 41.0-53.0 [facility] Comment on above: Performed By: #### Deborah GAMEZAT ####[facility] PATHOLOGY [id number] [place] [address], Hemoglobin (Bld) [Mass/Vol] 9.0 g/dL Low 13.9-16.3 [facility] Comment on above: Performed By: #### Deborah GAMEZAT ####[facility] PATHOLOGY [id number] [place], Lymphocytes (Bld) [#/Vol] 0.92 10*3/uL Low 1.00-4.80 [facility] Comment on above: Performed By: #### Deborah GRUBBSDSAT ####[facility] PATHOLOGY [id number] [place] [address], Lymphocytes/100 WBC (Bld) 7.6 % Low 24.0-44.0 [facility] Comment on above: Performed By: #### C HUMERADSAT ####[facility] PATHOLOGY [id number] [place] [address], MCH (RBC) [Entitic mass] 31.1 pg Normal 26.0-34.0 [facility] Comment on above: Performed By: #### Deborah GAMEZAT ####[facility] PATHOLOGY [id number] [place] [address], MCHC (RBC) [Mass/Vol] 33.1 g/dL Normal 32.0-35.9 [facility] Comment on above: Performed By: #### C VERAAT ####[facility] PATHOLOGY [id number] [place] [address], MCV (RBC) [Entitic vol] 94 fL Normal 80-100 [facility] Comment on above: Performed By: #### Deborah GAMEZAT ####[facility] PATHOLOGY [id number] [place] [address], MONOCYTE DISTRIBUTION WIDTH Normal [facility] Comment on above: Performed By: #### Deborah GAMEZAT ####[facility] PATHOLOGY [id number] [place] [address], Monocytes (Bld) [#/Vol] 1.16 10*3/uL High 0.20-1.00 [facility] Comment on above: Performed By: #### Deborah GAMEZAT ####[facility] PATHOLOGY [id number] [place] [address], Monocytes/100 WBC (Bld) 9.6 % Normal 2.0-11.0 [facility] Comment on above: Performed By: #### Deborah GAMEZAT ####[facility] [id number] [place], Neutrophils (Bld) [#/Vol] 9.73 10*3/uL High 1.50-8.00 [facility] Comment on above: Performed By: #### Deborah BCDSAT ####[facility] PATHOLOGY [id number] [place], Neutrophils/100 WBC (Bld) 80.3 % High 31.0-76.[address] [facility] Comment on above: Performed By: #### C BCDSAT ####[facility] PATHOLOGY [id number] [place], Platelet mean volume (Bld) [Entitic vol] 9.7 fL Normal 7.5-11.[address] [facility] Comment on above: Performed By: #### C BCDSAT ####[facility] PATHOLOGY [id number] [place], Platelets (Bld) [#/Vol] 285 10*3/uL Normal 150-[address] [facility] Comment on above: Performed By: #### C BCDSAT ####[facility] PATHOLOGY [id number] [place], RBC (Bld) [#/Vol] 2.89 10*6/uL Low 4.50-5.90 [facility] Comment on above: Performed By: #### Deborah BCDSAT ####[facility] PATHOLOGY [id number] [place], WBC (Bld) [#/Vol] 12.1 10*3/uL High 4.5-11.5 [facility] Comment on above: Performed By: #### C BCDSAT ####S PATHOLOGY [id number] [place], Care Plan Noteon 03-26-2021 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 Interface Message Text Normal [facility] GLUCOSE, FINGERSTICK-IN OFFI CEon 03-26-2021 Glucose [Mass/Vol] 166 mg/dL High 80-[address] [facility] Comment on above: Performed By: #### 8 2948 ####NURSING GLUCOSE [id number] [place], [address] Glucose [Mass/Vol] 118 mg/dL High 80-116 [facility] Comment on above: Performed By: #### 8 2948 ####NURSING GLUCOSE [id number] [place], [address] Glucose [Mass/Vol] 138 mg/dL High 80-116 [facility] Comment on above: Performed By: #### 8 2948 ####NURSING GLUCOSE [id number] [place], [address] PROTHROMBIN TIME AND INRon 1 INR Coag (PPP) [Relative time] 1.48 {INR} High 0.90-1.[address] [facility] Comment on above: Performed By: #### P T ####[facility] [id number] [place] [address], PT Coag (PPP) [Time] 16.4 s High 9.7-12.[address] [facility] Comment on above: Performed By: #### P T ####S PATHOLOGY [id number] [place] [address], Progress Noteson 03-26-2021 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 Interface Message Text Normal [facility] BASIC METABOLIC PANELon 03-05 Anion gap [Moles/Vol] 15 mmol/L Normal 10-20 [facility] Comment on above: Performed By: #### C H8, MG, HEPATIC ####[facility] [id number] [place], Calcium [Mass/Vol] 8.3 mg/dL Low 8.4-10.4 [facility] Comment on above: Performed By: #### C H8, MG, HEPATIC ####[facility] [id number] [place], Chloride [Moles/Vol] 98 mmol/L Normal 97-111 [facility] Comment on above: Performed By: #### C H8, MG, HEPATIC ####[facility] PATH[facility] [id number] [place], CO2 [Moles/Vol] 28 mmol/L Normal 21-[address] [facility] Comment on above: Performed By: #### C H8, MG, HEPATIC ####[facility] PATH[facility] [id number] [place], Creatinine [Mass/Vol] 1.23 mg/dL Normal 0.80-1.[address] [facility] Comment on above: Performed By: #### C H8, MG, HEPATIC ####[facility] [id number] [place], ESTIMATED GFR (CKD-EPI) 57 mL/min/1.73sqm Low >=[address] [facility] Comment on above: Performed By: #### C H8, MG, HEPATIC ####[facility] [id number] [place], Glucose [Mass/Vol] 137 mg/dL High 80-[address] [facility] Comment on above: Performed By: #### C H8, MG, HEPATIC ####[facility] [id number] [place], Potassium [Moles/Vol] 4.0 mmol/L Normal 3.3-5.[address] [facility] Comment on above: Performed By: #### C H8, MG, HEPATIC ####[facility] [id number] [place], Sodium [Moles/Vol] 137 mmol/L Normal 135-148 [facility] Comment on above: Performed By: #### C H8, MG, HEPATIC ####[facility] [id number] [place], Urea nitrogen [Mass/Vol] 32 mg/dL High 8-22 [facility] Comment on above: Performed By: #### C H8, MG, HEPATIC ####[facility] [id number] [place], CBC WITH DIFFERENTIALon 03-05 Basophils (Bld) [#/Vol] 0.05 10*3/uL Normal 0.00-0.20 [facility] Comment on above: Performed By: #### C BCDSAT ####[facility] [id number] [place], Basophils/100 WBC (Bld) 0.3 % Normal <=1.9 [facility] Comment on above: Performed By: #### C BCDSAT ####[facility] PATHOLOGY [id number] [place], Eosinophils (Bld) [#/Vol] 0.35 10*3/uL Normal 0.00-0.70 [facility] Comment on above: Performed By: #### C BCDSAT ####[facility] PATHOLOGY [id number] [place] [address], Eosinophils/100 WBC (Bld) 2.1 % Normal 0.1-4.0 [facility] Comment on above: Performed By: #### C BCDSAT ####[facility] PATHOLOGY [id number] [place] [address], Erythrocyte distribution width (RBC) [Ratio] 14.3 % Normal 11.5-14.5 [facility] Comment on above: Performed By: #### C BCDSAT ####[facility] PATHOLOGY [id number] [place] [address], Hematocrit (Bld) [Volume fraction] 22.8 % Low 41.0-53.0 [facility] Comment on above: Performed By: #### C BCDSAT ####[facility] PATHOLOGY [id number] [place] [address], Hemoglobin (Bld) [Mass/Vol] 7.6 g/dL Low 13.9-16.3 [facility] Comment on above: Performed By: #### C BCDSAT ####[facility] PATHOLOGY [id number] [place] [address], Lymphocytes (Bld) [#/Vol] 1.36 10*3/uL Normal 1.00-4.80 [facility] Comment on above: Performed By: #### C BCDSAT ####[facility] PATHOLOGY [id number] [place], Lymphocytes/100 WBC (Bld) 8.2 % Low 24.0-44.0 [facility] Comment on above: Performed By: #### C BCDSAT ####[facility] [id number] [place], MCH (RBC) [Entitic mass] 30.5 pg Normal 26.0-34.0 [facility] Comment on above: Performed By: #### Deborah GAMEZAT ####[facility] PATHOLOGY [id number] [place], MCHC (RBC) [Mass/Vol] 33.2 g/dL Normal 32.0-35.9 [facility] Comment on above: Performed By: #### Deborah GAMEZAT ####[facility] PATHOLOGY [id number] [place], MCV (RBC) [Entitic vol] 92 fL Normal 80-[address] [facility] Comment on above: Performed By: #### Deborah GAMEZAT ####[facility] PATHOLOGY [id number] [place] [address], MONOCYTE DISTRIBUTION WIDTH Normal [facility] Comment on above: Performed By: #### Deborah GAMEZAT ####[facility] PATHOLOGY [id number] [place], Monocytes (Bld) [#/Vol] 1.80 10*3/uL High 0.20-1.00 [facility] Comment on above: Performed By: #### Deborah GAMEZAT ####[facility] PATHOLOGY [id number] [place], Monocytes/100 WBC (Bld) 10.8 % Normal 2.0-11.0 [facility] Comment on above: Performed By: #### Deborah GAMEZAT ####[facility] PATHOLOGY [id number] [place], Neutrophils (Bld) [#/Vol] 13.16 10*3/uL High 1.50-8.00 [facility] Comment on above: Performed By: #### Deborah GAMEZAT ####[facility] PATHOLOGY [id number] [place], Neutrophils/100 WBC (Bld) 78.7 % High 31.0-76.[address] [facility] Comment on above: Performed By: #### C BCDSAT ####[facility] PATHOLOGY [id number] [place], Platelet mean volume (Bld) [Entitic vol] 9.9 fL Normal 7.5-11.[address] [facility] Comment on above: Performed By: #### C BCDSAT ####[facility] PATHOLOGY [id number] [place], Platelets (Bld) [#/Vol] 214 10*3/uL Normal 150-[address] [facility] Comment on above: Performed By: #### C BCDSAT ####[facility] PATHOLOGY [id number] [place], RBC (Bld) [#/Vol] 2.49 10*6/uL Low 4.50-5.[address] [facility] Comment on above: Performed By: #### C BCDSAT ####[facility] PATHOLOGY [id number] [place], WBC (Bld) [#/Vol] 16.7 10*3/uL High 4.5-11.[address] [facility] Comment on above: Performed By: #### C BCDSAT ####[facility] PATHOLOGY [id number] [place], COMPLETE BLOOD COUNTon 03-25 Erythrocyte distribution width (RBC) [Ratio] 14.4 % Normal 11.5-14.5 [facility] Comment on above: Performed By: #### C BC ####[facility] PATHOLOGY [id number] [place], Hematocrit (Bld) [Volume fraction] 23.3 % Low 41.0-53.0 [facility] Comment on above: Performed By: #### C BC ####[facility] PATHOLOGY [id number] [place], Hemoglobin (Bld) [Mass/Vol] 7.8 g/dL Low 13.9-16.3 [facility] Comment on above: Performed By: #### C BC ####[facility] PATHOLOGY [id number] [place], MCH (RBC) [Entitic mass] 31.4 pg Normal 26.0-34.0 [facility] Comment on above: Performed By: #### C BC ####S PATHOLOGY [id number] [place], MCHC (RBC) [Mass/Vol] 33.5 g/dL Normal 32.0-35.[address] [facility] Comment on above: Performed By: #### C BC ####S PATHOLOGY [id number] [place], MCV (RBC) [Entitic vol] 94 fL Normal 80-[address] [facility] Comment on above: Performed By: #### C BC ####[facility] PATHOLOGY [id number] [place], Platelet mean volume (Bld) [Entitic vol] 9.9 fL Normal 7.5-11.2 [facility] Comment on above: Performed By: #### C BC ####[facility] PATHOLOGY [id number] [place], Platelets (Bld) [#/Vol] 210 10*3/uL Normal 150-[address] [facility] Comment on above: Performed By: #### C BC ####[facility] PATHOLOGY [id number] [place], RBC (Bld) [#/Vol] 2.49 10*6/uL Low 4.50-5.[address] [facility] Comment on above: Performed By: #### C BC ####[facility] PATHOLOGY [id number] [place], WBC (Bld) [#/Vol] 12.3 10*3/uL High 4.5-11.5 [facility] Comment on above: Performed By: #### C BC ####S PATHOLOGY [id number] [place], Care Plan Noteon 03-25-2021 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 Interface Message Text Normal [facility] 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 Interface Message Text Normal [facility] Consultson 03-25-2021 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 Interface Message Text Normal [facility] 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 Interface Message Text Normal [facility] GLUCOSE, FINGERSTICK-IN OFFI CEon 03-25-2021 Glucose [Mass/Vol] 121 mg/dL High 80-116 [facility] Comment on above: Performed By: #### 8 2948 ####NURSING GLUCOSE [id number] [place], [address] Glucose [Mass/Vol] 136 mg/dL High 80-116 [facility] Comment on above: Result Comment: Salvador jovel RN, APN, MD Performed By: #### 8 2948 ####NURSING GLUCOSE [id number] [place], [address] Glucose [Mass/Vol] 164 mg/dL High 80-116 [facility] Comment on above: Result Comment: Salvador jovel RN, APN, MD Performed By: #### 8 2948 ####NURSING GLUCOSE [id number] [place], [address] Glucose [Mass/Vol] 171 mg/dL High 80-116 [facility] Comment on above: Performed By: #### 8 2948 ####NURSING GLUCOSE [id number] [place], [address] HEPATIC FUNCTION PANELon Albumin [Mass/Vol] 2.6 g/dL Low 3.4-5.1 [facility] Comment on above: Performed By: #### Deborah Jeronimo MG, HEPATIC ####[facility] [id number] [place] [address], ALK 83 IU/L Normal 40-200 [facility] Comment on above: Performed By: #### Deborah Jeronimo, MG, HEPATIC ####[facility] [id number] [place], ALT [Catalytic activity/Vol] 53 U/L High 7-40 [facility] Comment on above: Performed By: #### Deborah Jeronimo, MG, HEPATIC ####[facility] [id number] [place], AST [Catalytic activity/Vol] 60 U/L High 7-40 [facility] Comment on above: Performed By: #### Deborah Jeronimo, MG, HEPATIC ####[facility] [id number] [place], Bilirubin [Mass/Vol] 1.2 mg/dL Normal 0.1-1.5 [facility] Comment on above: Performed By: #### C H8, MG, HEPATIC ####[facility] [id number] [place], Bilirubin.direct [Mass/Vol] 0.30 mg/dL Normal 0.10-0.30 [facility] Comment on above: Performed By: #### C H8, MG, HEPATIC ####[facility] [id number] [place], Protein [Mass/Vol] 5.7 g/dL Normal 5.7-8.1 [facility] Comment on above: Performed By: #### C Case8, MG, HEPATIC ####[facility] [id number] [place], MAGNESIUMon 03-25-2021 Magnesium [Mass/Vol] 2.1 mg/dL Normal 1.6-2.8 [facility] Comment on above: Performed By: #### Deborah H8, MG, HEPATIC ####[facility] [id number] [place], Progress Noteson 03-25-2021 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 Interface Message Text Message sent to Dr Hernandes: could we possibly get cortisone cream ordered for pt's back. He is itchy, reddened skin, and some tearing to his moles on his back from the pt scratching. Will monitor for order, or contraindication. Normal [facility] 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 Interface Message Text Both lumens of PICC are sluggish to flush and do not give blood return. TPN paused. Dr. Umana notified and order for Cath-Ermias received. Normal [facility] 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 Interface Message Text Normal [facility] 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 Interface Message Text [facility] PLAN NOTE S: O: AP: Rest of care per training intern note Kacie Rogers MD PGY-2 [phone] Normal [facility] BASIC METABOLIC PANELon 10- Anion gap [Moles/Vol] 17 mmol/L Normal 10-20 [facility] Comment on above: Performed By: #### H EPATIC PHOS, CH8, TRIG, MG ####[facility] PATHOLOG[facility] [id number] [place], Calcium [Mass/Vol] 8.5 mg/dL Normal 8.4-10.4 [facility] Comment on above: Performed By: #### H EPATIC, PHOS, CH8, TRIG, MG ####[facility] PATHOLOGY [id number] [place], Chloride [Moles/Vol] 101 mmol/L Normal 97-111 [facility] Comment on above: Performed By: #### H EPATIC, PHOS, CH8, TRIG, MG ####[facility] PATHOLOGY [id number] [place], CO2 [Moles/Vol] 26 mmol/L Normal 21-30 [facility] Comment on above: Performed By: #### H EPATIC, PHOS, CH8, TRIG, MG ####[facility] PATHOLOGY [id number] [place] [address], Creatinine [Mass/Vol] 1.11 mg/dL Normal 0.80-1.30 [facility] Comment on above: Performed By: #### H EPATIC, PHOS, CH8, TRIG, MG ####[facility] PATHOLOGY [id number] [place] [address], ESTIMATED GFR (CKD-EPI) 65 mL/min/1.73sqm Normal >=60 [facility] Comment on above: Performed By: #### H EPATIC, PHOS, CH8, TRIG, MG ####[facility] PATHOLOGY [id number] [place], Glucose [Mass/Vol] 196 mg/dL High 80-116 [facility] Comment on above: Performed By: #### H EPATIC, PHOS, CH8, TRIG, MG ####[facility] PATHOLOGY [id number] [place], Potassium [Moles/Vol] 4.3 mmol/L Normal 3.3-5.3 [facility] Comment on above: Performed By: #### H EPATIC, PHOS, CH8, TRIG, MG ####S PATHOLOGY [id number] [place], Sodium [Moles/Vol] 140 mmol/L Normal 135-[address] [facility] Comment on above: Performed By: #### H EPATIC, PHOS, CH8, TRIG, MG ####[facility] PATHOLOGY [id number] [place], Urea nitrogen [Mass/Vol] 30 mg/dL High 8-22 [facility] Comment on above: Performed By: #### H EPATIC, PHOS, CH8, TRIG, MG ####[facility] PATHOLOGY [id number] [place], CBC WITH DIFFERENTIALon 03-05 Basophils (Bld) [#/Vol] 0.09 10*3/uL Normal 0.00-0.20 [facility] Comment on above: Performed By: #### C BCDSAT ####[facility] PATHOLOGY [id number] [place], Basophils/100 WBC (Bld) 0.5 % Normal <=1.9 [facility] Comment on above: Performed By: #### C BCDSAT ####[facility] PATHOLOGY [id number] [place], Eosinophils (Bld) [#/Vol] 0.35 10*3/uL Normal 0.00-0.70 [facility] Comment on above: Performed By: #### C BCDSAT ####[facility] PATHOLOGY [id number] [place], Eosinophils/100 WBC (Bld) 2.0 % Normal 0.1-4.0 [facility] Comment on above: Performed By: #### C BCDSAT ####[facility] PATHOLOGY [id number] [place], Erythrocyte distribution width (RBC) [Ratio] 14.4 % Normal 11.5-14.5 [facility] Comment on above: Performed By: #### C BCDSAT ####[facility] PATHOLOGY [id number] [place], Hematocrit (Bld) [Volume fraction] 24.3 % Low 41.0-53.0 [facility] Comment on above: Performed By: #### Deborah GAMEZAT ####[facility] PATHOLOGY [id number] [place] [address], Hemoglobin (Bld) [Mass/Vol] 8.1 g/dL Low 13.9-16.3 [facility] Comment on above: Performed By: #### Deborah GAMEZAT ####[facility] PATHOLOGY [id number] [place] [address], Lymphocytes (Bld) [#/Vol] 1.18 10*3/uL Normal 1.00-4.80 [facility] Comment on above: Performed By: #### Deborah GAMEZAT ####[facility] PATHOLOGY [id number] [place] [address], Lymphocytes/100 WBC (Bld) 6.5 % Low 24.0-44.0 [facility] Comment on above: Performed By: #### Deborah GAMEZAT ####[facility] PATHOLOGY [id number] [place] [address], MCH (RBC) [Entitic mass] 30.9 pg Normal 26.0-34.0 [facility] Comment on above: Performed By: #### Deborah GAMEZAT ####[facility] PATHOLOGY [id number] [place] [address], MCHC (RBC) [Mass/Vol] 33.3 g/dL Normal 32.0-35.9 [facility] Comment on above: Performed By: #### Deborah GAMEZAT ####[facility] PATHOLOGY [id number] [place] [address], MCV (RBC) [Entitic vol] 93 fL Normal 80-100 [facility] Comment on above: Performed By: #### Deborah GAMEZAT ####[facility] PATHOLOGY [id number] [place] [address], MONOCYTE DISTRIBUTION WIDTH Normal [facility] Comment on above: Performed By: #### Deborah GAMEZAT ####[facility] PATHOLOGY [id number] [place] [address], Monocytes (Bld) [#/Vol] 1.41 10*3/uL High 0.20-1.00 [facility] Comment on above: Performed By: #### Deborah GAMEZAT ####[facility] PATHOLOGY [id number] [place], Monocytes/100 WBC (Bld) 7.8 % Normal 2.0-11.0 [facility] Comment on above: Performed By: #### Deborah GAMEZAT ####[facility] PATHOLOGY [id number] [place] [address], Neutrophils (Bld) [#/Vol] 15.08 10*3/uL High 1.50-8.00 [facility] Comment on above: Performed By: #### Deborah GAMEZAT ####[facility] PATHOLOGY [id number] [place] [address], Neutrophils/100 WBC (Bld) 83.3 % High 31.0-76.0 [facility] Comment on above: Performed By: #### Deborah GAMEZAT ####[facility] PATHOLOGY [id number] [place] [address], Platelet mean volume (Bld) [Entitic vol] 10.2 fL Normal 7.5-11.2 [facility] Comment on above: Performed By: #### Deborah GAMEZAT ####[facility] PATHOLOGY [id number] [place] [address], Platelets (Bld) [#/Vol] 210 10*3/uL Normal 150-400 [facility] Comment on above: Performed By: #### Deborah GAMEZAT ####[facility] PATHOLOG[facility] [id number] [place], RBC (Bld) [#/Vol] 2.62 10*6/uL Low 4.50-5.90 [facility] Comment on above: Performed By: #### Deborah GAMEZAT ####[facility] PATHOLOG[facility] [id number] [place], WBC (Bld) [#/Vol] 18.1 10*3/uL High 4.5-11.5 [facility] Comment on above: Performed By: #### Deborah GAMEZAT ####[facility] PATHOLOG[facility] [id number] [place], Basophils (Bld) [#/Vol] 0.18 10*3/uL Normal 0.00-0.20 [facility] Comment on above: Performed By: #### C BCDSAT ####[facility] PATHOLOG[facility] [id number] [place], Basophils/100 WBC (Bld) 0.9 % Normal <=1.[address] Comment on above: Performed By: #### C BCDSAT ####[facility] PATHOLOG[facility] [id number] [place], Eosinophils (Bld) [#/Vol] 0.50 10*3/uL Normal 0.00-0.[address] [facility] Comment on above: Performed By: #### C BCDSAT ####[facility] PATHOLOGY [id number] [place] [address], Eosinophils/100 WBC (Bld) 2.5 % Normal 0.1-4.[address] [facility] Comment on above: Performed By: #### C BCDSAT ####[facility] PATHOLOGY [id number] [place] [address], Erythrocyte distribution width (RBC) [Ratio] 14.4 % Normal 11.5-14.5 [facility] Comment on above: Performed By: #### C BCDSAT ####[facility] PATHOLOG[facility] [id number] [place], Hematocrit (Bld) [Volume fraction] 24.3 % Low 41.0-53.0 [facility] Comment on above: Performed By: #### C BCDSAT ####[facility] PATHOLOGY [id number] [place], Hemoglobin (Bld) [Mass/Vol] 8.1 g/dL Low 13.9-16.3 [facility] Comment on above: Performed By: #### C BCDSAT ####[facility] PATHOLOGY [id number] [place] [address], Lymphocytes (Bld) [#/Vol] 1.28 10*3/uL Normal 1.00-4.80 [facility] Comment on above: Performed By: #### C BCDSAT ####[facility] PATHOLOG[facility] [id number] [place], Lymphocytes/100 WBC (Bld) 6.4 % Low 24.0-44.0 [facility] Comment on above: Performed By: #### C BCDSAT ####[facility] PATH[facility] [id number] [place], MCH (RBC) [Entitic mass] 30.6 pg Normal 26.0-34.0 [facility] Comment on above: Performed By: #### C BCDSAT ####[facility] PATHOLOG[facility] [id number] [place], MCHC (RBC) [Mass/Vol] 33.1 g/dL Normal 32.0-35.9 [facility] Comment on above: Performed By: #### C BCDSAT ####[facility] PATHOLOGY [id number] [place] [address], MCV (RBC) [Entitic vol] 93 fL Normal 80-100 [facility] Comment on above: Performed By: #### C BCDSAT ####[facility] PATHOLOG[facility] [id number] [place], MONOCYTE DISTRIBUTION WIDTH Normal [facility] Comment on above: Performed By: #### C BCDSAT ####[facility] PATHOLOG[facility] [id number] [place], Monocytes (Bld) [#/Vol] 2.23 10*3/uL High 0.20-1.00 [facility] Comment on above: Performed By: #### C BCDSAT ####[facility] PATH[facility] [id number] [place], Monocytes/100 WBC (Bld) 11.2 % High 2.0-11.0 [facility] Comment on above: Performed By: #### C BCDSAT ####[facility] PATHOLOG[facility] [id number] [place], Neutrophils (Bld) [#/Vol] 15.70 10*3/uL High 1.50-8.00 [facility] Comment on above: Performed By: #### Deborah BCDSAT ####[facility] PATHOLOG[facility] [id number] [place], Neutrophils/100 WBC (Bld) 79.0 % High 31.0-76.0 [facility] Comment on above: Performed By: #### C BCDSAT ####[facility] PATHOLOGY [id number] [place] [address], Platelet mean volume (Bld) [Entitic vol] 10.1 fL Normal 7.5-11.2 [facility] Comment on above: Performed By: #### Deborah GRUBBSDSAT ####[facility] PATHOLOGY [id number] [place] [address], Platelets (Bld) [#/Vol] 209 10*3/uL Normal 150-[address] [facility] Comment on above: Performed By: #### Deborah GRUBBSDSAT ####[facility] PATHOLOG[facility] [id number] [place] [address], RBC (Bld) [#/Vol] 2.63 10*6/uL Low 4.50-5.[address] [facility] Comment on above: Performed By: #### Deborah BCDSAT ####[facility] PATHOLOGY [id number] [place] [address], WBC (Bld) [#/Vol] 19.9 10*3/uL High 4.5-11.5 [facility] Comment on above: Performed By: #### Deborah BCDSAT ####[facility] PATHOLOGY [id number] [place] [address], Basophils (Bld) [#/Vol] 0.06 10*3/uL Normal 0.00-0.[address] [facility] Comment on above: Performed By: #### C BCDSAT ####[facility] PATHOLOGY [id number] [place] [address], Basophils/100 WBC (Bld) 0.3 % Normal <=1.[address] [facility] Comment on above: Performed By: #### Deborah BCDSAT ####[facility] PATHOLOG[facility] [id number] [place], Eosinophils (Bld) [#/Vol] 0.45 10*3/uL Normal 0.00-0.70 [facility] Comment on above: Performed By: #### C BCDSAT ####[facility] PATHOLOG[facility] [id number] [place], Eosinophils/100 WBC (Bld) 2.4 % Normal 0.1-4.0 [facility] Comment on above: Performed By: #### C BCDSAT ####[facility] PATHOLOG[facility] [id number] [place] [address], Erythrocyte distribution width (RBC) [Ratio] 14.5 % Normal 11.5-14.5 [facility] Comment on above: Performed By: #### C BCDSAT ####[facility] PATH[facility] [id number] [place] [address], Hematocrit (Bld) [Volume fraction] 25.2 % Low 41.0-53.0 [facility] Comment on above: Performed By: #### C BCDSAT ####[facility] PATH[facility] [id number] [place] [address], Hemoglobin (Bld) [Mass/Vol] 8.1 g/dL Low 13.9-16.3 [facility] Comment on above: Performed By: #### C BCDSAT ####[facility] PATH[facility] [id number] [place], Lymphocytes (Bld) [#/Vol] 1.14 10*3/uL Normal 1.00-4.80 [facility] Comment on above: Performed By: #### C BCDSAT ####[facility] PATH[facility] [id number] [place], Lymphocytes/100 WBC (Bld) 6.2 % Low 24.0-44.0 [facility] Comment on above: Performed By: #### C BCDSAT ####[facility] PATH[facility] [id number] [place], MCH (RBC) [Entitic mass] 30.9 pg Normal 26.0-34.0 [facility] Comment on above: Performed By: #### C BCDSAT ####S PATHOLOGY [id number] [place], MCHC (RBC) [Mass/Vol] 32.1 g/dL Normal 32.0-35.9 [facility] Comment on above: Performed By: #### C BCDSAT ####[facility] [id number] [place], MCV (RBC) [Entitic vol] 96 fL Normal 80-[address] [facility] Comment on above: Performed By: #### C BCDSAT ####[facility] PATHOLOG[facility] [id number] [place], MONOCYTE DISTRIBUTION WIDTH Normal [facility] Comment on above: Performed By: #### C BCDSAT ####[facility] PATH[facility] [id number] [place], Monocytes (Bld) [#/Vol] 1.91 10*3/uL High 0.20-1.[address] [facility] Comment on above: Performed By: #### C BCDSAT ####[facility] PATHOLOG[facility] [id number] [place], Monocytes/100 WBC (Bld) 10.3 % Normal 2.0-11.[address] [facility] Comment on above: Performed By: #### C BCDSAT ####[facility] PATHOLOGY [id number] [place], Neutrophils (Bld) [#/Vol] 14.99 10*3/uL High 1.50-8.[address] [facility] Comment on above: Performed By: #### C BCDSAT ####[facility] PATHOLOG[facility] [id number] [place], Neutrophils/100 WBC (Bld) 80.9 % High 31.0-76.[address] [facility] Comment on above: Performed By: #### C BCDSAT ####S PATHOLOGY [id number] [place], Platelet mean volume (Bld) [Entitic vol] 10.0 fL Normal 7.5-11.2 [facility] Comment on above: Performed By: #### C BCDSAT ####S PATHOLOGY [id number] [place], Platelets (Bld) [#/Vol] 200 10*3/uL Normal 150-400 [facility] Comment on above: Performed By: #### C BCMARIAMAAT ####S PATHOLOGY [id number] [place], RBC (Bld) [#/Vol] 2.62 10*6/uL Low 4.50-5.90 [facility] Comment on above: Performed By: #### C BCDSAT ####S PATHOLOGY [id number] [place], WBC (Bld) [#/Vol] 18.5 10*3/uL High 4.5-11.5 [facility] Comment on above: Performed By: #### C BCDSAT ####[facility] PATHOLOG[facility] [id number] [place], Care Plan Noteon 03-24-2021 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 Interface Message Text Normal [facility] Consultson 03-24-2021 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 Interface Message Text Normal [facility] 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 Interface Message Text Normal [facility] 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 Interface Message Text Normal [facility] GLUCOSE, FINGERSTICK-IN OFFI CEon 03-24-2021 Glucose [Mass/Vol] 222 mg/dL High 80-116 [facility] Comment on above: Performed By: #### 8 2948 ####NURSING GLUCOSE [id number] [place], [address] Glucose [Mass/Vol] 156 mg/dL High 80-116 [facility] Comment on above: Result Comment: Foll ow Protocol Performed By: #### 8 2948 ####NURSING GLUCOSE [id number] [place], [address] Glucose [Mass/Vol] 185 mg/dL High 80-116 [facility] Comment on above: Result Comment: Foll ow Protocol Performed By: #### 8 2948 ####NURSING GLUCOSE [id number] [place], [address] Glucose [Mass/Vol] 228 mg/dL High 80-116 [facility] Comment on above: Result Comment: Salvador jovel RN, APN, MD Performed By: #### 8 2948 ####NURSING GLUCOSE [id number] [place], [address] Glucose [Mass/Vol] 212 mg/dL High 80-116 [facility] Comment on above: Result Comment: Salvador jovel RN, APN, MD Performed By: #### 8 2948 ####NURSING GLUCOSE [id number] [place], [address] HEPATIC FUNCTION PANELon Albumin [Mass/Vol] 2.7 g/dL Low 3.4-5.1 [facility] Comment on above: Performed By: #### H EPATIC, PHOS, CH8, TRIG, MG ####[facility] [id number] [place] [address], ALK 75 IU/L Normal 40-[address] [facility] Comment on above: Performed By: #### H EPATIC, PHOS, CH8, TRIG, MG ####[facility] [id number] [place] [address], ALT [Catalytic activity/Vol] 50 U/L High 7-40 [facility] Comment on above: Performed By: #### H EPATIC, PHOS, CH8, TRIG, MG ####[facility] [id number] [place], AST [Catalytic activity/Vol] 57 U/L High 7-40 [facility] Comment on above: Performed By: #### H EPATIC, PHOS, CH8, TRIG, MG ####[facility] [id number] [place], Bilirubin [Mass/Vol] 0.7 mg/dL Normal 0.1-1.5 [facility] Comment on above: Performed By: #### H EPATIC, PHOS, CH8, TRIG, MG ####[facility] [id number] [place], Bilirubin.direct [Mass/Vol] 0.50 mg/dL High 0.10-0.30 [facility] Comment on above: Performed By: #### H EPATIC, PHOS, CH8, TRIG, MG ####[facility] [id number] [place], Protein [Mass/Vol] 5.9 g/dL Normal 5.7-8.1 [facility] Comment on above: Performed By: #### H EPATIC, PHOS, CH8, TRIG, MG ####[facility] [id number] [place], MAGNESIUMon 03-24-2021 Magnesium [Mass/Vol] 2.2 mg/dL Normal 1.6-2.8 [facility] Comment on above: Performed By: #### H EPATIC, PHOS, CH8, TRIG, MG ####[facility] [id number] [place], PHOSPHORUSon 03-24-2021 Phosphate [Mass/Vol] 3.5 mg/dL Normal 2.3-4.2 [facility] Comment on above: Performed By: #### H EPATIC, PHOS, CH8, TRIG, MG ####[facility] [id number] [place], [place], Progress Noteson 03-24-2021 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 Interface Message Text Normal [facility] 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 Interface Message Text Normal [facility] 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 Interface Message Text Normal [facility] 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 Interface Message Text Normal [facility] 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 Interface Message Text As patient is transitioned off amiodarone gtt for WCT, no indication to start oral amiodarone. Patient to get 30-day event monitor and follow up with EP in 4 weeks. Normal [facility] TRIGLYCERIDESon 03-24-2021 Triglyceride [Mass/Vol] 152 mg/dL High <151 [facility] Comment on above: Performed By: #### H EPATIC, PHOS, CH8, TRIG, MG ####[facility] [id number] [place], [place], Transfer Noteon 03-24-2021 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 Interface Message Text Normal [facility] BASIC METABOLIC PANELon 03-05 Anion gap [Moles/Vol] 15 mmol/L Normal -20 [facility] Comment on above: Performed By: #### MG Dev, PHOS ####[facility] [id number] [place], Calcium [Mass/Vol] 8.3 mg/dL Low 8.4-10.4 [facility] Comment on above: Performed By: #### MG Dev, PHOS ####[facility] [id number] [place], Chloride [Moles/Vol] 104 mmol/L Normal 97-111 [facility] Comment on above: Performed By: #### MG Dev, PHOS ####[facility] [id number] [place] [address], CO2 [Moles/Vol] 25 mmol/L Normal 21-30 [facility] Comment on above: Performed By: #### MG Dev, PHOS ####[facility] [id number] [place] [address], Creatinine [Mass/Vol] 1.13 mg/dL Normal 0.80-1.30 [facility] Comment on above: Performed By: #### MG Dev, PHOS ####[facility] [id number] [place] [address], ESTIMATED GFR (CKD-EPI) 63 mL/min/1.73sqm Normal >=60 [facility] Comment on above: Performed By: #### Deborah Jeronimo MG, PHOS ####[facility] [id number] [place], Glucose [Mass/Vol] 238 mg/dL High 80-116 [facility] Comment on above: Performed By: #### MG Dev, PHOS ####[facility] [id number] [place], Potassium [Moles/Vol] 4.7 mmol/L Normal 3.3-5.3 [facility] Comment on above: Result Comment: Hemo lysis present Performed By: #### Deborah Jeronimo MG, PHOS ####[facility] [id number] [place], Sodium [Moles/Vol] 139 mmol/L Normal 135-148 [facility] Comment on above: Performed By: #### MG Méndez PHOS ####S PATHOLOGY [id number] [place], Urea nitrogen [Mass/Vol] 32 mg/dL High 8-22 [facility] Comment on above: Performed By: #### MG Méndez PHOS ####S PATHOLOGY [id number] [place], CBC WITH DIFFERENTIALon 03-05-2020 Basophils (Bld) [#/Vol] 0.04 10*3/uL Normal 0.00-0.20 [facility] Comment on above: Performed By: #### C BCDSAT ####[facility] PATHOLOGY [id number] [place], Basophils/100 WBC (Bld) 0.2 % Normal <=1.9 [facility] Comment on above: Performed By: #### C BCDSAT ####[facility] PATHOLOGY [id number] [place], Eosinophils (Bld) [#/Vol] 0.36 10*3/uL Normal 0.00-0.[address] [facility] Comment on above: Performed By: #### Deborah BCDSAT ####[facility] PATHOLOGY [id number] [place], Eosinophils/100 WBC (Bld) 1.9 % Normal 0.1-4.0 [facility] Comment on above: Performed By: #### C BCDSAT ####S PATHOLOGY [id number] [place], Erythrocyte distribution width (RBC) [Ratio] 14.1 % Normal 11.5-14.5 [facility] Comment on above: Performed By: #### C BCDSAT ####[facility] PATHOLOGY [id number] [place], Hematocrit (Bld) [Volume fraction] 26.1 % Low 41.0-53.0 [facility] Comment on above: Performed By: #### C BCDSAT ####[facility] PATHOLOGY [id number] [place], Hemoglobin (Bld) [Mass/Vol] 8.8 g/dL Low 13.9-16.3 [facility] Comment on above: Performed By: #### C BCDSAT ####[facility] PATHOLOGY [id number] [place], Lymphocytes (Bld) [#/Vol] 1.10 10*3/uL Normal 1.00-4.80 [facility] Comment on above: Performed By: #### C BCDSAT ####[facility] PATHOLOGY [id number] [place], Lymphocytes/100 WBC (Bld) 5.7 % Low 24.0-44.0 [facility] Comment on above: Performed By: #### C BCDSAT ####[facility] PATHOLOGY [id number] [place] [address], MCH (RBC) [Entitic mass] 31.4 pg Normal 26.0-34.0 [facility] Comment on above: Performed By: #### C BCDSAT ####[facility] PATHOLOGY [id number] [place] [address], MCHC (RBC) [Mass/Vol] 33.7 g/dL Normal 32.0-35.9 [facility] Comment on above: Performed By: #### C BCDSAT ####[facility] PATHOLOGY [id number] [place] [address], MCV (RBC) [Entitic vol] 93 fL Normal 80-100 [facility] Comment on above: Performed By: #### C BCDSAT ####[facility] PATHOLOGY [id number] [place], MONOCYTE DISTRIBUTION WIDTH Normal [facility] Comment on above: Performed By: #### C BCDSAT ####S PATHOLOGY [id number] [place], Monocytes (Bld) [#/Vol] 2.00 10*3/uL High 0.20-1.00 [facility] Comment on above: Performed By: #### C BCDSAT ####S PATHOLOGY [id number] [place], Monocytes/100 WBC (Bld) 10.4 % Normal 2.0-11.0 [facility] Comment on above: Performed By: #### C BCDSAT ####S PATHOLOGY [id number] [place], Neutrophils (Bld) [#/Vol] 15.73 10*3/uL High 1.50-8.[address] [facility] Comment on above: Performed By: #### C BCDSAT ####[facility] PATHOLOGY [id number] [place], Neutrophils/100 WBC (Bld) 81.8 % High 31.0-76.[address] [facility] Comment on above: Performed By: #### C BCDSAT ####[facility] PATHOLOGY [id number] [place], Platelet mean volume (Bld) [Entitic vol] 10.1 fL Normal 7.5-11.[address] [facility] Comment on above: Performed By: #### C BCDSAT ####S PATHOLOGY [id number] [place], Platelets (Bld) [#/Vol] 215 10*3/uL Normal 150-[address] [facility] Comment on above: Performed By: #### C BCDSAT ####S PATHOLOGY [id number] [place], RBC (Bld) [#/Vol] 2.80 10*6/uL Low 4.50-5.[address] [facility] Comment on above: Performed By: #### C BCDSAT ####[facility] [id number] [place], WBC (Bld) [#/Vol] 19.2 10*3/uL High 4.5-11.[address] [facility] Comment on above: Performed By: #### C BCDSAT ####[facility] [id number] [place], Basophils (Bld) [#/Vol] 0.07 10*3/uL Normal 0.00-0.20 [facility] Comment on above: Performed By: #### C BCDSAT ####[facility] PATHOLOGY [id number] [place], Basophils/100 WBC (Bld) 0.4 % Normal <=1.9 [facility] Comment on above: Performed By: #### C BCDSAT ####[facility] PATHOLOGY [id number] [place] [address], Eosinophils (Bld) [#/Vol] 0.26 10*3/uL Normal 0.00-0.70 [facility] Comment on above: Performed By: #### C BCDSAT ####[facility] PATHOLOGY [id number] [place] [address], Eosinophils/100 WBC (Bld) 1.3 % Normal 0.1-4.0 [facility] Comment on above: Performed By: #### C BCDSAT ####[facility] PATHOLOGY [id number] [place] [address], Erythrocyte distribution width (RBC) [Ratio] 14.2 % Normal 11.5-14.5 [facility] Comment on above: Performed By: #### C BCDSAT ####[facility] PATHOLOGY [id number] [place], Hematocrit (Bld) [Volume fraction] 26.4 % Low 41.0-53.0 [facility] Comment on above: Performed By: #### C BCDSAT ####[facility] PATHOLOGY [id number] [place], Hemoglobin (Bld) [Mass/Vol] 8.7 g/dL Low 13.9-16.3 [facility] Comment on above: Performed By: #### C BCDSAT ####[facility] PATHOLOGY [id number] [place] [address], Lymphocytes (Bld) [#/Vol] 1.15 10*3/uL Normal 1.00-4.80 [facility] Comment on above: Performed By: #### C BCDSAT ####[facility] PATHOLOGY [id number] [place], Lymphocytes/100 WBC (Bld) 6.0 % Low 24.0-44.0 [facility] Comment on above: Performed By: #### C BCDSAT ####[facility] PATHOLOGY [id number] [place], MCH (RBC) [Entitic mass] 30.4 pg Normal 26.0-34.0 [facility] Comment on above: Performed By: #### C BCDSAT ####[facility] PATHOLOGY [id number] [place], MCHC (RBC) [Mass/Vol] 32.9 g/dL Normal 32.0-35.9 [facility] Comment on above: Performed By: #### C BCDSAT ####[facility] PATHOLOGY [id number] [place], MCV (RBC) [Entitic vol] 92 fL Normal 80-100 [facility] Comment on above: Performed By: #### C BCDSAT ####[facility] PATHOLOGY [id number] [place], MONOCYTE DISTRIBUTION WIDTH Normal [facility] Comment on above: Performed By: #### C BCDSAT ####[facility] PATHOLOGY [id number] [place], Monocytes (Bld) [#/Vol] 1.99 10*3/uL High 0.20-1.00 [facility] Comment on above: Performed By: #### C BCDSAT ####[facility] PATHOLOGY [id number] [place], Monocytes/100 WBC (Bld) 10.4 % Normal 2.0-11.0 [facility] Comment on above: Performed By: #### C BCDSAT ####[facility] PATHOLOGY [id number] [place], Neutrophils (Bld) [#/Vol] 15.68 10*3/uL High 1.50-8.[address] [facility] Comment on above: Performed By: #### C BCDSAT ####[facility] PATHOLOGY [id number] [place], Neutrophils/100 WBC (Bld) 81.9 % High 31.0-76.0 [facility] Comment on above: Performed By: #### C BCDSAT ####[facility] PATHOLOGY [id number] [place], Platelet mean volume (Bld) [Entitic vol] 9.5 fL Normal 7.5-11.2 [facility] Comment on above: Performed By: #### C BCDSAT ####[facility] PATHOLOGY [id number] [place], Platelets (Bld) [#/Vol] 211 10*3/uL Normal 150-[address] [facility] Comment on above: Performed By: #### C BCDSAT ####[facility] PATHOLOGY [id number] [place] [address], RBC (Bld) [#/Vol] 2.87 10*6/uL Low 4.50-5.[address] [facility] Comment on above: Performed By: #### C BCDSAT ####[facility] PATHOLOGY [id number] [place], WBC (Bld) [#/Vol] 19.1 10*3/uL High 4.5-11.5 [facility] Comment on above: Performed By: #### C BCDSAT ####[facility] PATHOLOGY [id number] [place], Basophils (Bld) [#/Vol] 0.05 10*3/uL Normal 0.00-0.[address] [facility] Comment on above: Performed By: #### C BCDSAT ####[facility] PATHOLOGY [id number] [place], Basophils/100 WBC (Bld) 0.3 % Normal <=1.9 [facility] Comment on above: Performed By: #### C BCDSAT ####[facility] PATHOLOGY [id number] [place], Eosinophils (Bld) [#/Vol] 0.09 10*3/uL Normal 0.00-0.70 [facility] Comment on above: Performed By: #### Deborah GAMEZAT ####[facility] PATHOLOGY [id number] [place], Eosinophils/100 WBC (Bld) 0.5 % Normal 0.1-4.0 [facility] Comment on above: Performed By: #### Deborah GAMEZAT ####[facility] PATHOLOGY [id number] [place] [address], Erythrocyte distribution width (RBC) [Ratio] 14.1 % Normal 11.5-14.5 [facility] Comment on above: Performed By: #### Deborah GAMEZAT ####[facility] PATHOLOGY [id number] [place] [address], Hematocrit (Bld) [Volume fraction] 28.5 % Low 41.0-53.0 [facility] Comment on above: Performed By: #### Deborah GAMEZAT ####[facility] PATHOLOGY [id number] [place] [address], Hemoglobin (Bld) [Mass/Vol] 9.6 g/dL Low 13.9-16.3 [facility] Comment on above: Performed By: #### Deborah GAMEZAT ####[facility] PATHOLOGY [id number] [place] [address], Lymphocytes (Bld) [#/Vol] 0.92 10*3/uL Low 1.00-4.[address] [facility] Comment on above: Performed By: #### Deborah GAMEZAT ####[facility] PATHOLOGY [id number] [place] [address], Lymphocytes/100 WBC (Bld) 4.9 % Low 24.0-44.0 [facility] Comment on above: Performed By: #### Deborah GAMEZAT ####[facility] PATHOLOGY [id number] [place], MCH (RBC) [Entitic mass] 31.3 pg Normal 26.0-34.0 [facility] Comment on above: Performed By: #### Deborah GAMEZAT ####[facility] [id number] [place], MCHC (RBC) [Mass/Vol] 33.7 g/dL Normal 32.0-35.9 [facility] Comment on above: Performed By: #### Deborah GAMEZAT ####[facility] PATHOLOGY [id number] [place], MCV (RBC) [Entitic vol] 93 fL Normal 80-100 [facility] Comment on above: Performed By: #### Deborah GAMEZAT ####S PATHOLOGY [id number] [place], MONOCYTE DISTRIBUTION WIDTH Normal [facility] Comment on above: Performed By: #### Deborah GAMEZAT ####S PATHOLOGY [id number] [place], Monocytes (Bld) [#/Vol] 1.89 10*3/uL High 0.20-1.[address] [facility] Comment on above: Performed By: #### Deborah GAMEZAT ####[facility] PATHOLOGY [id number] [place], Monocytes/100 WBC (Bld) 10.0 % Normal 2.0-11.0 [facility] Comment on above: Performed By: #### Deborah GAMEZAT ####S PATHOLOGY [id number] [place], Neutrophils (Bld) [#/Vol] 15.95 10*3/uL High 1.50-8.00 [facility] Comment on above: Performed By: #### Deborah GAMEZAT ####S PATHOLOGY [id number] [place], Neutrophils/100 WBC (Bld) 84.4 % High 31.0-76.[address] [facility] Comment on above: Performed By: #### Deborah GAMEZAT ####S PATHOLOGY [id number] [place], Platelet mean volume (Bld) [Entitic vol] 9.9 fL Normal 7.5-11.2 [facility] Comment on above: Performed By: #### C BCDSAT ####[facility] [id number] [place], Platelets (Bld) [#/Vol] 210 10*3/uL Normal 150-400 [facility] Comment on above: Performed By: #### C BCDSAT ####S PATHOLOGY [id number] [place], RBC (Bld) [#/Vol] 3.07 10*6/uL Low 4.50-5.90 [facility] Comment on above: Performed By: #### C BCDSAT ####[facility] [id number] [place], WBC (Bld) [#/Vol] 18.9 10*3/uL High 4.5-11.5 [facility] Comment on above: Performed By: #### C BCDSAT ####S PATHOLOGY [id number] [place], CTA GI BLEEDon 03-23-2021 CTA GI BLEED Normal [facility] Care Plan Noteon 03-23-2021 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 Interface Message Text Normal [facility] 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 Interface Message Text Normal [facility] Consultson 03-23-2021 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 Interface Message Text Normal [facility] 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 Interface Message Text ACUTE PHYSICAL THERAPY Attempted to see patient for PT visit this date. Patient refused treatment this date due to just getting back from [place] and c/o being too tired. Will follow up as able. Heidi Lambert PT Normal [facility] 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 Interface Message Text Normal [facility] 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 Interface Message Text Normal [facility] GLUCOSE, FINGERSTICK-IN OFFI CEon 03-23-2021 Glucose [Mass/Vol] 216 mg/dL High 80-116 [facility] Comment on above: Result Comment: Salvador jovel RN, APN, MD Performed By: #### 8 [id number] ####NURSING GLUCOSE [id number] [place], Glucose [Mass/Vol] 221 mg/dL High 80-116 [facility] Comment on above: Result Comment: Salvador jovel RN, APN, MD Performed By: #### 8 9542 ####NURSING GLUCOSE [id number] [place], [address] Glucose [Mass/Vol] 237 mg/dL High 80-116 [facility] Comment on above: Performed By: #### 8 2948 ####NURSING GLUCOSE [id number] [place], [address] Glucose [Mass/Vol] 266 mg/dL High 80-116 [facility] Comment on above: Result Comment: Salvador jovel RN, APN, MD Performed By: #### 8 2948 ####NURSING GLUCOSE [id number] [place], [address] MAGNESIUMon 03-23-2021 Magnesium [Mass/Vol] 2.2 mg/dL Normal 1.6-2.8 [facility] Comment on above: Result Comment: Hemo lysis present Performed By: #### C H8, MG, PHOS ####[facility] [id number] [place] [address], PHOSPHORUSon 03-23-2021 Phosphate [Mass/Vol] 3.8 mg/dL Normal 2.3-4.2 [facility] Comment on above: Performed By: #### C H8, MG, PHOS ####[facility] [id number] [place], Progress Noteson 03-23-2021 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 Interface Message Text Normal [facility] 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 Interface Message Text Normal [facility] 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 Interface Message Text Normal [facility] 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 Interface Message Text Normal [facility] 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 Interface Message Text Normal [facility] 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 Interface Message Text Normal [facility] BASIC METABOLIC PANELon - Anion gap [Moles/Vol] 17 mmol/L Normal 03-23 [facility] Comment on above: Performed By: #### C H8, HEPATIC, MG, PHOS, TRIG ####[facility] [id number] [place], Calcium [Mass/Vol] 8.4 mg/dL Normal 8.4-10.4 [facility] Comment on above: Performed By: #### C H8, HEPATIC, MG, PHOS, TRIG ####[facility] [id number] [place], Chloride [Moles/Vol] 103 mmol/L Normal 97-111 [facility] Comment on above: Performed By: #### C H8, HEPATIC, MG, PHOS, TRIG ####[facility] [id number] [place], CO2 [Moles/Vol] 23 mmol/L Normal 21-30 [facility] Comment on above: Performed By: #### C H8, HEPATIC, MG, PHOS, TRIG ####[facility] [id number] [place], Creatinine [Mass/Vol] 1.03 mg/dL Normal 0.80-1.30 [facility] Comment on above: Performed By: #### C H8, HEPATIC, MG, PHOS, TRIG ####S PATHOLOGY [id number] [place], ESTIMATED GFR (CKD-EPI) 71 mL/min/1.73sqm Normal >=60 [facility] Comment on above: Performed By: #### C H8, HEPATIC, MG, PHOS, TRIG ####[facility] [id number] [place], Glucose [Mass/Vol] 205 mg/dL High 80-116 [facility] Comment on above: Performed By: #### C H8, HEPATIC, MG, PHOS, TRIG ####[facility] [id number] [place], Potassium [Moles/Vol] 3.5 mmol/L Normal 3.3-5.3 [facility] Comment on above: Performed By: #### C H8, HEPATIC, MG, PHOS, TRIG ####[facility] [id number] [place], Sodium [Moles/Vol] 139 mmol/L Normal 135-148 [facility] Comment on above: Performed By: #### C H8, HEPATIC, MG, PHOS, TRIG ####[facility] [id number] [place], Urea nitrogen [Mass/Vol] 24 mg/dL High 8-22 [facility] Comment on above: Performed By: #### C H8, HEPATIC, MG, PHOS, TRIG ####[facility] [id number] [place], CBC WITH DIFFERENTIALon 03-04 Erythrocyte distribution width (RBC) [Ratio] 14.1 % Normal 11.5-14.5 [facility] Comment on above: Performed By: #### M DIFF, CBCDSAT ####S PATHOLOGY [id number] [place], Hematocrit (Bld) [Volume fraction] 29.6 % Low 41.0-53.0 [facility] Comment on above: Performed By: #### M DIFF, CBCDSAT ####S PATHOLOGY [id number] [place], Hemoglobin (Bld) [Mass/Vol] 9.9 g/dL Low 13.9-16.3 [facility] Comment on above: Performed By: #### M DIFF, CBCDSAT ####S PATHOLOGY [id number] [place], MCH (RBC) [Entitic mass] 30.9 pg Normal 26.0-34.0 [facility] Comment on above: Performed By: #### M DIFF, CBCDSAT ####S PATHOLOGY [id number] [place], MCHC (RBC) [Mass/Vol] 33.6 g/dL Normal 32.0-35.9 [facility] Comment on above: Performed By: #### M DIFF, CBCDSAT ####S PATHOLOGY [id number] [place], MCV (RBC) [Entitic vol] 92 fL Normal 80-100 [facility] Comment on above: Performed By: #### M DIFF, CBCDSAT ####[facility] [id number] [place], MONOCYTE DISTRIBUTION WIDTH Normal [facility] [facility] Comment on above: Performed By: #### M DIFF, CBCDSAT ####[facility] PATHOLOG[facility] [id number] [place], [place], Platelet mean volume (Bld) [Entitic vol] 9.6 fL Normal 7.5-11.2 [facility] Comment on above: Performed By: #### M DIFF, CBCDSAT ####[facility] PATHOLOGY [id number] [place], Platelets (Bld) [#/Vol] 228 10*3/uL Normal 150-400 [facility] Comment on above: Performed By: #### M DIFF, CBCDSAT ####[facility] PATHOLOGY [id number] [place] [address], RBC (Bld) [#/Vol] 3.22 10*6/uL Low 4.50-5.90 [facility] Comment on above: Performed By: #### M DIFF, CBCDSAT ####[facility] PATHOLOGY [id number] [place] [address], WBC (Bld) [#/Vol] 19.0 10*3/uL High 4.5-11.5 [facility] Comment on above: Performed By: #### M DIFF, CBCDSAT ####[facility] PATHOLOGY [id number] [place] [address], Basophils (Bld) [#/Vol] 0.06 10*3/uL Normal 0.00-0.20 [facility] Comment on above: Performed By: #### C BCDSAT ####[facility] PATHOLOGY [id number] [place] [address], Basophils/100 WBC (Bld) 0.4 % Normal <=1.9 [facility] Comment on above: Performed By: #### C BCDSAT ####[facility] PATHOLOGY [id number] [place] [address], Eosinophils (Bld) [#/Vol] 0.38 10*3/uL Normal 0.00-0.70 [facility] Comment on above: Performed By: #### C BCDSAT ####[facility] PATHOLOGY [id number] [place] [address], Eosinophils/100 WBC (Bld) 2.8 % Normal 0.1-4.0 [facility] Comment on above: Performed By: #### Deborah GAMEZAT ####[facility] PATHOLOGY [id number] [place], Erythrocyte distribution width (RBC) [Ratio] 14.4 % Normal 11.5-14.5 [facility] Comment on above: Performed By: #### Deborah GAMEZAT ####[facility] PATHOLOGY [id number] [place], Hematocrit (Bld) [Volume fraction] 33.1 % Low 41.0-53.0 [facility] Comment on above: Performed By: #### Deborah GAMEZAT ####[facility] PATHOLOGY [id number] [place] [address], Hemoglobin (Bld) [Mass/Vol] 10.9 g/dL Low 13.9-16.3 [facility] Comment on above: Performed By: #### Deborah GAMEZAT ####[facility] PATHOLOGY [id number] [place] [address], Lymphocytes (Bld) [#/Vol] 1.15 10*3/uL Normal 1.00-4.80 [facility] Comment on above: Performed By: #### Deborah GAMEZAT ####[facility] PATHOLOGY [id number] [place], Lymphocytes/100 WBC (Bld) 8.5 % Low 24.0-44.0 [facility] Comment on above: Performed By: #### C VERAAT ####S PATHOLOGY [id number] [place], MCH (RBC) [Entitic mass] 30.4 pg Normal 26.0-34.0 [facility] Comment on above: Performed By: #### C VERAAT ####S PATHOLOGY [id number] [place], MCHC (RBC) [Mass/Vol] 32.9 g/dL Normal 32.0-35.9 [facility] Comment on above: Performed By: #### C VERAAT ####[facility] [id number] [place], MCV (RBC) [Entitic vol] 93 fL Normal 80-100 [facility] Comment on above: Performed By: #### Deborah GAMEZAT ####S PATHOLOGY [id number] [place], MONOCYTE DISTRIBUTION WIDTH Normal [facility] Comment on above: Performed By: #### Deborah GAMEZAT ####S PATHOLOGY [id number] [place], Monocytes (Bld) [#/Vol] 1.74 10*3/uL High 0.20-1.00 [facility] Comment on above: Performed By: #### C VERAAT ####[facility] PATHOLOGY [id number] [place], Monocytes/100 WBC (Bld) 12.9 % High 2.0-11.0 [facility] Comment on above: Performed By: #### Deborah GAMEZAT ####[facility] PATHOLOGY [id number] [place], Neutrophils (Bld) [#/Vol] 10.24 10*3/uL High 1.50-8.00 [facility] Comment on above: Performed By: #### Deborah GAMEZAT ####S PATHOLOGY [id number] [place], Neutrophils/100 WBC (Bld) 75.5 % Normal 31.0-76.[address] [facility] Comment on above: Performed By: #### Deborah GAMEZAT ####S PATHOLOGY [id number] [place], Platelet mean volume (Bld) [Entitic vol] 9.5 fL Normal 7.5-11.2 [facility] Comment on above: Performed By: #### Deborah GAMEZAT ####S PATHOLOGY [id number] [place], Platelets (Bld) [#/Vol] 200 10*3/uL Normal 150-400 [facility] Comment on above: Performed By: #### C BCDSAT ####[facility] [id number] [place], RBC (Bld) [#/Vol] 3.58 10*6/uL Low 4.50-5.90 [facility] Comment on above: Performed By: #### C BCDSAT ####[facility] [id number] [place], WBC (Bld) [#/Vol] 13.6 10*3/uL High 4.5-11.5 [facility] Comment on above: Performed By: #### C BCDSAT ####S PATHOLOGY [id number] [place], [place], CT PELVIS W/ CONTRASTon 03-04 CT PELVIS W/ CONTRAST Normal [facility] Care Plan Noteon 03-22-2021 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 Interface Message Text Normal [facility] Consultson 03-22-2021 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 Interface Message Text Normal [facility] 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 Interface Message Text Normal [facility] 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 Interface Message Text Normal [facility] 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 Interface Message Text Physical Therapy New consult received. Pt currently on program. Please see notes in EPIC Lesa Taylor, PT Normal [facility] GLUCOSE, FINGERSTICK-IN OFFI CEon 03-22-2021 Glucose [Mass/Vol] 235 mg/dL High 80-116 [facility] Comment on above: Result Comment: Salvador jovel RN, APN, MD Performed By: #### 8 9108 ####NURSING GLUCOSE [id number] [place], [address] Glucose [Mass/Vol] 186 mg/dL High 80-116 [facility] Comment on above: Result Comment: Salvador jovel RN, APN, MD Performed By: #### 8 8588 ####NURSING GLUCOSE [id number] [place], [address] Glucose [Mass/Vol] 173 mg/dL High 80-116 [facility] Comment on above: Result Comment: Salvador jovel RN, APN, MD Performed By: #### 8 7643 ####NURSING GLUCOSE [id number] [place], [address] HEPATIC FUNCTION PANELon Albumin [Mass/Vol] 2.7 g/dL Low 3.4-5.1 [facility] Comment on above: Performed By: #### Deborah H8, HEPATIC, MG, PHOS, TRIG ####S PATHOLOGY [id number] [place], ALK 70 IU/L Normal 40-200 [facility] Comment on above: Performed By: #### Deborah H8, HEPATIC, MG, PHOS, TRIG ####[facility] PATHOLOGY [id number] [place], ALT [Catalytic activity/Vol] 53 U/L High 7-40 [facility] Comment on above: Performed By: #### Deborah H8, HEPATIC, MG, PHOS, TRIG ####[facility] PATHOLOGY [id number] [place], AST [Catalytic activity/Vol] 38 U/L Normal 7-40 [facility] Comment on above: Performed By: #### Deborah H8, HEPATIC, MG, PHOS, TRIG ####S PATHOLOGY [id number] [place], Bilirubin [Mass/Vol] 1.1 mg/dL Normal 0.1-1.5 [facility] Comment on above: Performed By: #### Deborah H8, HEPATIC, MG, PHOS, TRIG ####S PATHOLOGY [id number] [place], Bilirubin.direct [Mass/Vol] 0.40 mg/dL High 0.10-0.30 [facility] Comment on above: Performed By: #### Debroah H8, HEPATIC, MG, PHOS, TRIG ####S PATHOLOGY [id number] [place], Protein [Mass/Vol] 5.8 g/dL Normal 5.7-8.1 [facility] Comment on above: Performed By: #### Deborah H8, HEPATIC, MG, PHOS, TRIG ####[facility] PATHOLOGY [id number] [place], MAGNESIUMon 03-22-2021 Magnesium [Mass/Vol] 1.9 mg/dL Normal 1.6-2.8 [facility] Comment on above: Performed By: #### C H8, HEPATIC, MG, PHOS, TRIG ####[facility] [id number] [place], MANUAL DIFF AND MORPHon 10- BANDS % BY MANUAL COUNT 1 % Normal <=10 [facility] Comment on above: Performed By: #### M DIFF, CBCDSAT ####S PATHOLOGY [id number] [place], BANDS ABS BY MANUAL COUNT 0.19 K/uL High <0.01 [facility] Comment on above: Performed By: #### M DIFF, CBCDSAT ####S PATHOLOGY [id number] [place], CELLS COUNTED TOTAL # IN BLOOD 100 Normal [facility] Comment on above: Performed By: #### M DIFF, CBCDSAT ####S PATHOLOGY [id number] [place], LYMPHOCYTES % BY MANUAL COUNT 5.0 % Low 24.0-44.0 [facility] Comment on above: Performed By: #### M DIFF, CBCDSAT ####S PATHOLOGY [id number] [place], LYMPHOCYTES ABS BY MANUAL COUNT 0.95 K/uL Low 1.00-4.80 [facility] Comment on above: Performed By: #### M DIFF, CBCDSAT ####[facility] [id number] [place], METAMYELOCYTES % BY MANUAL COUNT 1 % High <0 [facility] Comment on above: Performed By: #### M DIFF, CBCDSAT ####S PATHOLOGY [id number] [place], METAMYELOCYTES ABS BY MANUAL COUNT 0.19 K/uL High <0.01 [facility] Comment on above: Performed By: #### M DIFF, CBCDSAT ####S PATHOLOGY [id number] [place], MONOCYTES % BY MANUAL COUNT 8.0 % Normal 2.0-11.0 [facility] Comment on above: Performed By: #### M DIFF, CBCDSAT ####[facility] PATHOLOGY [id number] [place], MONOCYTES ABS BY MANUAL COUNT 1.52 K/uL High 0.20-1.00 [facility] Comment on above: Performed By: #### M DIFF, CBCDSAT ####[facility] PATHOLOGY [id number] [place], NEUTROPHILS % BY MANUAL COUNT 85.0 % High 31.0-76.0 [facility] Comment on above: Performed By: #### M DIFF, CBCDSAT ####[facility] PATHOLOGY [id number] [place] [address], NEUTROPHILS ABS BY MANUAL COUNT 16.15 K/uL High 1.50-8.00 [facility] Comment on above: Performed By: #### M DIFF, CBCDSAT ####[facility] PATHOLOGY [id number] [place] [address], OVALOCYTES Few Normal [facility] Comment on above: Performed By: #### M DIFF, CBCDSAT ####[facility] PATHOLOGY [id number] [place] [address], POLYCHROMASIA Slight Normal [facility] Comment on above: Performed By: #### M DIFF, CBCDSAT ####[facility] PATHOLOGY [id number] [place] [address], Multidisciplinary Noteon 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 Interface Message Text Normal [facility] PARTIAL THROMBOPLASTIN TIMEo n 03-22-2021 aPTT Coag (Bld) [Time] 83 s High 25-37 [facility] Comment on above: Performed By: #### A PTT, PT ####[facility] PATHOLOGY [id number] [place] [address], PHOSPHORUSon 03-22-2021 Phosphate [Mass/Vol] 2.7 mg/dL Normal 2.3-4.2 [facility] Comment on above: Performed By: #### C H8, HEPATIC, MG, PHOS, TRIG ####[facility] PATHOLOGY [id number] [place] [address], PROTHROMBIN TIME AND INRon INR Coag (PPP) [Relative time] 1.80 {INR} High 0.90-1.10 [facility] Comment on above: Performed By: #### A PTT, PT ####[facility] PATHOLOG[facility] [id number] [place], PT Coag (PPP) [Time] 19.9 s High 9.7-12.9 [facility] Comment on above: Performed By: #### A PTT, PT ####[facility] PATHOLOGY [id number] [place] [address], Progress Noteson 03-22-2021 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 Interface Message Text 8:21 PM Attempted to call daughter with update about CT. Home number unidentified individual answered stating they were not the listed contact Dominique Landon. No answer on mobile number. Will plan to update tomorrow or if she calls. Normal [facility] 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 Interface Message Text Normal [facility] 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 Interface Message Text Normal [facility] 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 Interface Message Text Normal [facility] 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 Interface Message Text Normal [facility] TRIGLYCERIDESon 03-22-2021 Triglyceride [Mass/Vol] 143 mg/dL Normal <151 [facility] Comment on above: Performed By: #### C H8, HEPATIC, MG, PHOS, TRIG ####[facility] PATHOLOG[facility] [id number] [place], BASIC METABOLIC PANELon 03-04 Anion gap [Moles/Vol] 15 mmol/L Normal 10-20 [facility] Comment on above: Performed By: #### C H8, PHOS, HEPATIC, MG, TRIG ####S PATHOLOGY [id number] [place], Calcium [Mass/Vol] 8.3 mg/dL Low 8.4-10.4 [facility] Comment on above: Performed By: #### C H8, PHOS, HEPATIC, MG, TRIG ####S PATHOLOGY [id number] [place], Chloride [Moles/Vol] 102 mmol/L Normal 97-111 [facility] Comment on above: Performed By: #### C H8, PHOS, HEPATIC, MG, TRIG ####[facility] [id number] [place], CO2 [Moles/Vol] 27 mmol/L Normal 21-30 [facility] Comment on above: Performed By: #### C H8, PHOS, HEPATIC, MG, TRIG ####[facility] [id number] [place], Creatinine [Mass/Vol] 1.11 mg/dL Normal 0.80-1.30 [facility] Comment on above: Performed By: #### C H8, PHOS, HEPATIC, MG, TRIG ####[facility] [id number] [place], ESTIMATED GFR (CKD-EPI) 65 mL/min/1.73sqm Normal >=60 [facility] Comment on above: Performed By: #### C H8, PHOS, HEPATIC, MG, TRIG ####[facility] [id number] [place] [address], Glucose [Mass/Vol] 238 mg/dL High 80-116 [facility] Comment on above: Performed By: #### C H8, PHOS, HEPATIC, MG, TRIG ####[facility] [id number] [place], Potassium [Moles/Vol] 3.5 mmol/L Normal 3.3-5.3 [facility] Comment on above: Performed By: #### C H8, PHOS, HEPATIC, MG, TRIG ####[facility] [id number] [place], Sodium [Moles/Vol] 140 mmol/L Normal 135-148 [facility] Comment on above: Performed By: #### C H8, PHOS, HEPATIC, MG, TRIG ####[facility] [id number] [place], Urea nitrogen [Mass/Vol] 28 mg/dL High 8-22 [facility] Comment on above: Performed By: #### C H8, PHOS, HEPATIC, MG, TRIG ####S PATHOLOGY [id number] [place], CBC WITH DIFFERENTIALon 03-04 Basophils (Bld) [#/Vol] 0.08 10*3/uL Normal 0.00-0.20 [facility] Comment on above: Performed By: #### C BCDSAT ####[facility] PATH[facility] [id number] [place], Basophils/100 WBC (Bld) 0.5 % Normal <=1.9 [facility] Comment on above: Performed By: #### C BCDSAT ####[facility] PATHOLOG[facility] [id number] [place], Eosinophils (Bld) [#/Vol] 0.47 10*3/uL Normal 0.00-0.[address] [facility] Comment on above: Performed By: #### C BCDSAT ####[facility] PATHOLOGY [id number] [place] [address], Eosinophils/100 WBC (Bld) 3.1 % Normal 0.1-4.0 [facility] Comment on above: Performed By: #### Deborah BCDSAT ####[facility] PATHOLOGY [id number] [place] [address], Erythrocyte distribution width (RBC) [Ratio] 14.0 % Normal 11.5-14.[address] Comment on above: Performed By: #### C BCDSAT ####S PATHOLOGY [id number] [place], Hematocrit (Bld) [Volume fraction] 33.7 % Low 41.0-53.0 [facility] Comment on above: Performed By: #### C BCDSAT ####S PATHOLOGY [id number] [place], Hemoglobin (Bld) [Mass/Vol] 11.0 g/dL Low 13.9-16.[address] Comment on above: Performed By: #### C BCDSAT ####S PATHOLOGY [id number] [place] [address], Lymphocytes (Bld) [#/Vol] 1.19 10*3/uL Normal 1.00-4.80 [facility] Comment on above: Performed By: #### C VERAAT ####[facility] PATHOLOG[facility] [id number] [place], Lymphocytes/100 WBC (Bld) 7.9 % Low 24.0-44.0 [facility] Comment on above: Performed By: #### C VERAAT ####[facility] PATH[facility] [id number] [place], MCH (RBC) [Entitic mass] 30.5 pg Normal 26.0-34.0 [facility] Comment on above: Performed By: #### C VERAAT ####[facility] PATHOLOG[facility] [id number] [place], MCHC (RBC) [Mass/Vol] 32.7 g/dL Normal 32.0-35.9 [facility] Comment on above: Performed By: #### Deborah GAMEZAT ####[facility] PATHOLOG[facility] [id number] [place], MCV (RBC) [Entitic vol] 93 fL Normal 80-[address] [facility] Comment on above: Performed By: #### Deborah GAMEZAT ####[facility] PATHOLOG[facility] [id number] [place], MONOCYTE DISTRIBUTION WIDTH Normal [facility] Comment on above: Performed By: #### Deborah GAMEZAT ####[facility] PATHOLOG[facility] [id number] [place], Monocytes (Bld) [#/Vol] 1.98 10*3/uL High 0.20-1.00 [facility] Comment on above: Performed By: #### Deborah GAMEZAT ####[facility] [id number] [place], Monocytes/100 WBC (Bld) 13.3 % High 2.0-11.0 [facility] Comment on above: Performed By: #### Deborah GAMEZAT ####[facility] PATHOLOG[facility] [id number] [place], Neutrophils (Bld) [#/Vol] 11.25 10*3/uL High 1.50-8.00 [facility] Comment on above: Performed By: #### C BCDSAT ####[facility] PATHOLOG[facility] [id number] [place], Neutrophils/100 WBC (Bld) 75.2 % Normal 31.0-76.0 [facility] Comment on above: Performed By: #### C HUMERADSAT ####[facility] PATHOLOG[facility] [id number] [place], Platelet mean volume (Bld) [Entitic vol] 9.8 fL Normal 7.5-11.2 [facility] Comment on above: Performed By: #### C HUMERADSAT ####[facility] PATHOLOG[facility] [id number] [place] [address], Platelets (Bld) [#/Vol] 172 10*3/uL Normal 150-400 [facility] Comment on above: Performed By: #### C VERAAT ####[facility] PATHOLOG[facility] [id number] [place], RBC (Bld) [#/Vol] 3.62 10*6/uL Low 4.50-5.90 [facility] Comment on above: Performed By: #### C HUMERADSAT ####[facility] PATHOLOG[facility] [id number] [place], WBC (Bld) [#/Vol] 15.0 10*3/uL High 4.5-11.5 [facility] Comment on above: Performed By: #### C BCDSAT ####[facility] PATHOLOG[facility] [id number] [place], Care Plan Noteon 03-21-2021 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 Interface Message Text Normal [facility] Consultson 03-21-2021 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 Interface Message Text Normal [facility] GLUCOSE, FINGERSTICK-IN OFFI CEon 03-21-2021 Glucose [Mass/Vol] 164 mg/dL High 80-116 [facility] Comment on above: Result Comment: Salvador jovel RN, APN, MD Performed By: #### 8 2948 ####NURSING GLUCOSE [id number] [place], [address] Glucose [Mass/Vol] 192 mg/dL High 80-116 [facility] Comment on above: Result Comment: Salvador jovel RN, APN, MD Performed By: #### 8 2948 ####NURSING GLUCOSE [id number] [place], [address] Glucose [Mass/Vol] 201 mg/dL High 80-116 [facility] Comment on above: Result Comment: Salvador jovel RN, APN, MD Performed By: #### 8 2948 ####NURSING GLUCOSE [id number] [place], [address] Glucose [Mass/Vol] 230 mg/dL High 80-116 [facility] Comment on above: Performed By: #### 8 2948 ####NURSING GLUCOSE [id number] [place], [address] HEPATIC FUNCTION PANELon Albumin [Mass/Vol] 2.7 g/dL Low 3.4-5.1 [facility] Comment on above: Performed By: #### C H8, PHOS, HEPATIC, MG, TRIG ####[facility] [id number] [place], ALK 62 IU/L Normal 40-200 [facility] Comment on above: Performed By: #### C H8, PHOS, HEPATIC, MG, TRIG ####[facility] [id number] [place], ALT [Catalytic activity/Vol] 53 U/L High 7-40 [facility] Comment on above: Performed By: #### C H8, PHOS, HEPATIC, MG, TRIG ####[facility] [id number] [place], AST [Catalytic activity/Vol] 42 U/L High 7-40 [facility] Comment on above: Performed By: #### C H8, PHOS, HEPATIC, MG, TRIG ####[facility] [id number] [place], Bilirubin [Mass/Vol] 1.3 mg/dL Normal 0.1-1.5 [facility] Comment on above: Performed By: #### C H8, PHOS, HEPATIC, MG, TRIG ####[facility] [id number] [place], Bilirubin.direct [Mass/Vol] 0.50 mg/dL High 0.10-0.30 [facility] Comment on above: Performed By: #### C H8, PHOS, HEPATIC, MG, TRIG ####[facility] [id number] [place], Protein [Mass/Vol] 5.9 g/dL Normal 5.7-8.1 [facility] Comment on above: Performed By: #### C H8, PHOS, HEPATIC, MG, TRIG ####[facility] [id number] [place], MAGNESIUMon 03-21-2021 Magnesium [Mass/Vol] 2.1 mg/dL Normal 1.6-2.[address] [facility] Comment on above: Performed By: #### C H8, PHOS, HEPATIC, MG, TRIG ####[facility] [id number] [place], Multidisciplinary Noteon 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 Interface Message Text Normal [facility] PARTIAL THROMBOPLASTIN TIMEo n 03-21-2021 aPTT Coag (Bld) [Time] 81 s High 25-37 [facility] Comment on above: Performed By: #### A PTT ####[facility] [id number] [place], PHOSPHORUSon 03-21-2021 Phosphate [Mass/Vol] 2.9 mg/dL Normal 2.3-4.2 [facility] Comment on above: Performed By: #### C H8, PHOS, HEPATIC, MG, TRIG ####[facility] [id number] [place], [place], Progress Noteson 03-21-2021 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 Interface Message Text Normal [facility] 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 Interface Message Text Normal [facility] 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 Interface Message Text Normal [facility] 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 Interface Message Text Normal [facility] TRIGLYCERIDESon 03-21-2021 Triglyceride [Mass/Vol] 131 mg/dL Normal <151 [facility] Comment on above: Performed By: #### C H8, PHOS, HEPATIC, MG, TRIG ####[facility] [id number] [place], [place], 1:1 Interactionon 03-20-2021 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 Interface Message Text Normal [facility] BASIC METABOLIC PANELon 03-04 Anion gap [Moles/Vol] 15 mmol/L Normal 10-20 [facility] Comment on above: Performed By: #### C H8, MG, PHOS ####[facility] [id number] [place], Calcium [Mass/Vol] 8.3 mg/dL Low 8.4-10.4 [facility] Comment on above: Performed By: #### C H8, MG, PHOS ####[facility] [id number] [place], Chloride [Moles/Vol] 101 mmol/L Normal 97-111 [facility] Comment on above: Performed By: #### C H8, MG, PHOS ####[facility] [id number] [place], CO2 [Moles/Vol] 27 mmol/L Normal 21-30 [facility] Comment on above: Performed By: #### C H8, MG, PHOS ####[facility] [id number] [place], Creatinine [Mass/Vol] 1.09 mg/dL Normal 0.80-1.30 [facility] Comment on above: Performed By: #### C H8, MG, PHOS ####[facility] [id number] [place], ESTIMATED GFR (CKD-EPI) 66 mL/min/1.73sqm Normal >=60 [facility] Comment on above: Performed By: #### C H8, MG, PHOS ####[facility] [id number] [place], Glucose [Mass/Vol] 369 mg/dL High 80-116 [facility] Comment on above: Performed By: #### MG Méndez PHOS ####[facility] [id number] [place], Potassium [Moles/Vol] 3.9 mmol/L Normal 3.3-5.3 [facility] Comment on above: Performed By: #### MG Méndez PHOS ####[facility] [id number] [place], Sodium [Moles/Vol] 139 mmol/L Normal 135-148 [facility] Comment on above: Performed By: #### MG Méndez PHOS ####[facility] [id number] [place], Urea nitrogen [Mass/Vol] 27 mg/dL High 8-22 [facility] Comment on above: Performed By: #### MG Méndez PHOS ####[facility] [id number] [place], Anion gap [Moles/Vol] 14 mmol/L Normal 10-20 [facility] Comment on above: Performed By: #### Deborah H8 ####[facility] [id number] [place], Calcium [Mass/Vol] 7.8 mg/dL Low 8.4-10.4 [facility] Comment on above: Performed By: #### C H8 ####[facility] [id number] [place], Chloride [Moles/Vol] 101 mmol/L Normal 97-111 [facility] Comment on above: Performed By: #### C H8 ####[facility] [id number] [place], CO2 [Moles/Vol] 27 mmol/L Normal 21-30 [facility] Comment on above: Performed By: #### C H8 ####[facility] [id number] [place], Creatinine [Mass/Vol] 1.22 mg/dL Normal 0.80-1.30 [facility] Comment on above: Performed By: #### C H8 ####[facility] PATHOLOGY [id number] [place], ESTIMATED GFR (CKD-EPI) 58 mL/min/1.73sqm Low >=60 [facility] Comment on above: Performed By: #### C H8 ####[facility] PATHOLOGY [id number] [place], Glucose [Mass/Vol] 411 mg/dL High 80-116 [facility] Comment on above: Performed By: #### C H8 ####[facility] PATHOLOGY [id number] [place], Potassium [Moles/Vol] 3.1 mmol/L Low 3.3-5.3 [facility] Comment on above: Performed By: #### C H8 ####[facility] PATHOLOGY [id number] [place], Sodium [Moles/Vol] 139 mmol/L Normal 135-148 [facility] Comment on above: Performed By: #### C H8 ####[facility] PATHOLOGY [id number] [place], Urea nitrogen [Mass/Vol] 26 mg/dL High 8-22 [facility] Comment on above: Performed By: #### C H8 ####[facility] PATHOLOGY [id number] [place], CBC WITH DIFFERENTIALon 03-04 Basophils (Bld) [#/Vol] 0.07 10*3/uL Normal 0.00-0.20 [facility] Comment on above: Performed By: #### C BCDSAT ####S PATHOLOGY [id number] [place], Basophils/100 WBC (Bld) 0.5 % Normal <=1.9 [facility] Comment on above: Performed By: #### C BCDSAT ####[facility] PATHOLOGY [id number] [place], Eosinophils (Bld) [#/Vol] 0.10 10*3/uL Normal 0.00-0.70 [facility] Comment on above: Performed By: #### C BCDSAT ####[facility] PATHOLOGY [id number] [place], Eosinophils/100 WBC (Bld) 0.7 % Normal 0.1-4.0 [facility] Comment on above: Performed By: #### C HUMERADSAT ####[facility] PATHOLOGY [id number] [place] [address], Erythrocyte distribution width (RBC) [Ratio] 13.9 % Normal 11.5-14.[address] [facility] Comment on above: Performed By: #### C VERAAT ####[facility] PATHOLOGY [id number] [place] [address], Hematocrit (Bld) [Volume fraction] 34.3 % Low 41.0-53.[address] [facility] Comment on above: Performed By: #### C VERAAT ####[facility] PATHOLOGY [id number] [place] [address], Hemoglobin (Bld) [Mass/Vol] 11.4 g/dL Low 13.9-16.[address] [facility] Comment on above: Performed By: #### C VERAAT ####[facility] PATHOLOGY [id number] [place] [address], Lymphocytes (Bld) [#/Vol] 0.82 10*3/uL Low 1.00-4.[address] [facility] Comment on above: Performed By: #### C BCDSAT ####[facility] PATHOLOGY [id number] [place] [address], Lymphocytes/100 WBC (Bld) 5.9 % Low 24.0-44.[address] [facility] Comment on above: Performed By: #### C VERAAT ####[facility] PATHOLOGY [id number] [place] [address], MCH (RBC) [Entitic mass] 30.9 pg Normal 26.0-34.[address] [facility] Comment on above: Performed By: #### C VERAAT ####[facility] PATHOLOGY [id number] [place] [address], MCHC (RBC) [Mass/Vol] 33.4 g/dL Normal 32.0-35.9 [facility] Comment on above: Performed By: #### Deborah GAMEZAT ####[facility] PATHOLOGY [id number] [place], MCV (RBC) [Entitic vol] 93 fL Normal 80-100 [facility] Comment on above: Performed By: #### C VERAAT ####[facility] PATHOLOGY [id number] [place], MONOCYTE DISTRIBUTION WIDTH Normal [facility] Comment on above: Performed By: #### C VERAAT ####[facility] PATHOLOGY [id number] [place], Monocytes (Bld) [#/Vol] 1.55 10*3/uL High 0.20-1.00 [facility] Comment on above: Performed By: #### Deborah GAMEZAT ####[facility] PATHOLOGY [id number] [place] [address], Monocytes/100 WBC (Bld) 11.2 % High 2.0-11.0 [facility] Comment on above: Performed By: #### Deborah GAMEZAT ####[facility] PATHOLOGY [id number] [place] [address], Neutrophils (Bld) [#/Vol] 11.38 10*3/uL High 1.50-8.00 [facility] Comment on above: Performed By: #### Deborah GAMEZAT ####[facility] PATHOLOGY [id number] [place], Neutrophils/100 WBC (Bld) 81.8 % High 31.0-76.0 [facility] Comment on above: Performed By: #### Deborah GAMEZAT ####S PATHOLOGY [id number] [place], Platelet mean volume (Bld) [Entitic vol] 9.7 fL Normal 7.5-11.2 [facility] Comment on above: Performed By: #### Deborah GAMEZAT ####[facility] PATHOLOGY [id number] [place], Platelets (Bld) [#/Vol] 171 10*3/uL Normal 150-400 [facility] Comment on above: Performed By: #### Deborah GAMEZAT ####S PATHOLOGY UFRPEHKPIN58[address] [place] [address], RBC (Bld) [#/Vol] 3.70 10*6/uL Low 4.50-5.90 [facility] Comment on above: Performed By: #### Deborah GAMEZAT ####S PATHOLOGY [id number] [place], WBC (Bld) [#/Vol] 13.9 10*3/uL High 4.5-11.5 [facility] Comment on above: Performed By: #### Deborah GAMEZAT ####[facility] PATHOLOGY [id number] [place] [address], Care Plan Noteon 03-20-2021 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 Interface Message Text Normal [facility] GLUCOSE, FINGERSTICK-IN OFFI CEon 03-20-2021 Glucose [Mass/Vol] 271 mg/dL High 80-116 [facility] Comment on above: Result Comment: Salvador jovel RN, APN, MD Performed By: #### 8 3174 ####NURSING GLUCOSE [id number] [place], [address] Glucose [Mass/Vol] 296 mg/dL High 80-116 [facility] Comment on above: Result Comment: Salvador jovel RN, APN, MD Performed By: #### 8 4436 ####NURSING GLUCOSE [id number] [place], [address] Glucose [Mass/Vol] 328 mg/dL High 80-116 [facility] Comment on above: Result Comment: Foll ow Protocol Performed By: #### 8 0056 ####NURSING GLUCOSE [id number] [place], [address] Glucose [Mass/Vol] 363 mg/dL High 80-116 [facility] Comment on above: Performed By: #### 8 4833 ####NURSING GLUCOSE [id number] [place], [address] Glucose [Mass/Vol] 368 mg/dL High 80-116 [facility] Comment on above: Result Comment: Foll ow Protocol Performed By: #### 8 2948 ####NURSING GLUCOSE [id number] [place], MAGNESIUMon 03-20-2021 Magnesium [Mass/Vol] 2.5 mg/dL Normal 1.6-2.8 [facility] Comment on above: Performed By: #### Deborah Jeronimo, MG, PHOS ####[facility] [id number] [place], Multidisciplinary Noteon 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 Interface Message Text Normal [facility] PARTIAL THROMBOPLASTIN TIMEo n 03-20-2021 aPTT Coag (Bld) [Time] 86 s High 25-37 [facility] Comment on above: Performed By: #### A PTT ####[facility] [id number] [place], aPTT Coag (Bld) [Time] 103 s Critically high 25-37 [facility] Comment on above: Performed By: #### A PTT ####[facility] [id number] [place], aPTT Coag (Bld) [Time] 32 s Normal 25-37 [facility] Comment on above: Performed By: #### A PTT ####[facility] [id number] [place], PHOSPHORUSon 03-20-2021 Phosphate [Mass/Vol] 2.5 mg/dL Normal 2.3-4.2 [facility] Comment on above: Performed By: #### Deborah H8, MG, PHOS ####[facility] [id number] [place], Progress Noteson 03-20-2021 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 Interface Message Text Normal [facility] 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 Interface Message Text Normal [facility] 1:1 Interactionon 03-19-2021 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 Interface Message Text Normal [facility] BASIC METABOLIC PANELon 10- Anion gap [Moles/Vol] 24 mmol/L High 10-20 [facility] Comment on above: Performed By: #### C H8, MG, PHOS ####[facility] [id number] [place], Calcium [Mass/Vol] 7.8 mg/dL Low 8.4-10.4 [facility] Comment on above: Performed By: #### C H8, MG, PHOS ####[facility] [id number] [place], Chloride [Moles/Vol] 101 mmol/L Normal 97-[address] [facility] Comment on above: Performed By: #### C H8, MG, PHOS ####[facility] [id number] [place], CO2 [Moles/Vol] 19 mmol/L Low 21-30 [facility] Comment on above: Performed By: #### Deborah H8, MG, PHOS ####[facility] [id number] [place], Creatinine [Mass/Vol] 1.05 mg/dL Normal 0.80-1.[address] [facility] Comment on above: Performed By: #### Deborah HClementina, MG, PHOS ####[facility] [id number] [place], ESTIMATED GFR (CKD-EPI) 69 mL/min/1.73sqm Normal >=60 [facility] Comment on above: Performed By: #### C H8, MG, PHOS ####[facility] [id number] [place], Glucose [Mass/Vol] 370 mg/dL High 80-116 [facility] Comment on above: Performed By: #### C H8, MG, PHOS ####[facility] [id number] [place], Potassium [Moles/Vol] 7.8 mmol/L Critically high 3.3-5.3 [facility] Comment on above: Result Comment: Hemo lysis present Performed By: #### C H8, MG, PHOS ####[facility] [id number] [place], Sodium [Moles/Vol] 136 mmol/L Normal 135-148 [facility] Comment on above: Performed By: #### MG Méndez PHOS ####[facility] [id number] [place], Urea nitrogen [Mass/Vol] 25 mg/dL High 8-22 [facility] Comment on above: Performed By: #### MG Dev PHOS ####[facility] [id number] [place], Anion gap [Moles/Vol] 17 mmol/L Normal 10-20 [facility] Comment on above: Performed By: #### MG Méndez PHOS ####[facility] [id number] [place] [address], Calcium [Mass/Vol] 8.6 mg/dL Normal 8.4-10.4 [facility] Comment on above: Performed By: #### MG Méndez PHOS ####[facility] [id number] [place] [address], Chloride [Moles/Vol] 99 mmol/L Normal 97-111 [facility] Comment on above: Performed By: #### MG Méndez PHOS ####[facility] [id number] [place] [address], CO2 [Moles/Vol] 25 mmol/L Normal 21-30 [facility] Comment on above: Performed By: #### MG Méndez PHOS ####[facility] [id number] [place], Creatinine [Mass/Vol] 1.09 mg/dL Normal 0.80-1.30 [facility] Comment on above: Performed By: #### MG Méndez PHOS ####[facility] [id number] [place], ESTIMATED GFR (CKD-EPI) 66 mL/min/1.73sqm Normal >=60 [facility] Comment on above: Performed By: #### MG Dev PHOS ####[facility] [id number] [place], Glucose [Mass/Vol] 378 mg/dL High 80-116 [facility] Comment on above: Performed By: #### MG Méndez PHOS ####[facility] PATHOLOGY [id number] [place], Potassium [Moles/Vol] 4.1 mmol/L Normal 3.3-5.3 [facility] Comment on above: Performed By: #### C MG Phani PHOCk ####[facility] PATHOLOGY [id number] [place], Sodium [Moles/Vol] 137 mmol/L Normal 135-148 [facility] Comment on above: Performed By: #### MG Méndez PHOS ####[facility] PATHOLOGY [id number] [place] [address], Urea nitrogen [Mass/Vol] 17 mg/dL Normal 8-22 [facility] Comment on above: Performed By: #### MG Méndez PHOS ####[facility] PATHOLOGY [id number] [place], BLOOD CULTUREon 03-19-2021 Bacteria identified Cx Nom (Bld) C BLOOD: No Growth Normal [facility] Comment on above: Performed By: #### C BLOOD ####[facility] Ntuittmxs[address] [place], [place] [id number] BLOOD GAS, ARTERIALon 2020 CR BARI 3.6 mmol/L High -2.0-2.0 [facility] Comment on above: Performed By: #### C R BGA ####[facility] PATHOLOGY [id number] [place], CR PCO2 35.0 mm Hg Normal 35.0-45.0 [facility] Comment on above: Performed By: #### C R BGA ####[facility] PATHOLOGY [id number] [place], CR PHA 7.490 High 7.35-7.45 [facility] Comment on above: Performed By: #### C R BGA ####[facility] [id number] [place], CR PO2 82 mm Hg Normal 80-100 [facility] Comment on above: Performed By: #### C R BGA ####[facility] PATHOLOG[facility] [id number] [place], FIO2 (CATEGORY) 5 LPM Normal [facility] Comment on above: Performed By: #### C R BGA ####[facility] PATHOLOGY [id number] [place] [address], HCO3 (Bld) [Moles/Vol] 26 mmol/L Normal 22-28 [facility] Comment on above: Performed By: #### C R BGA ####[facility] PATHOLOGY [id number] [place] [address], MODE Nasal Canula Normal [facility] Comment on above: Performed By: #### C R BGA ####[facility] PATHOLOGY ZPYIDHIBNA17[address] [place] [address], Oxygen saturation in Blood 96.9 % Normal >=95.1 [facility] Comment on above: Performed By: #### C R BGA ####[facility] PATHOLOGY [id number] [place] [address], CR BARI 3.9 mmol/L High -2.0-2.0 [facility] Comment on above: Performed By: #### C R BGA ####[facility] PATHOLOGY [id number] [place] [address], CR PCO2 32.4 mm Hg Low 35.0-45.0 [facility] Comment on above: Performed By: #### C R BGA ####[facility] PATHOLOGY [id number] [place] [address], CR PHA 7.516 High 7.35-7.45 [facility] Comment on above: Performed By: #### C R BGA ####[facility] PATHOLOGY [id number] [place] [address], CR PO2 72 mm Hg Low 80-100 [facility] Comment on above: Performed By: #### C R BGA ####[facility] [id number] [place] [address], FIO2 (CATEGORY) 5 LPM Normal [facility] Comment on above: Performed By: #### C R BGA ####[facility] PATHOLOGY [id number] [place], HCO3 (Bld) [Moles/Vol] 26 mmol/L Normal 22-28 [facility] Comment on above: Performed By: #### C R BGA ####[facility] PATHOLOGY [id number] [place] [address], MODE Nasal Canula Normal [facility] Comment on above: Performed By: #### C R BGA ####[facility] PATHOLOGY [id number] [place] [address], Oxygen saturation in Blood 95.5 % Normal >=95.1 [facility] Comment on above: Performed By: #### C R BGA ####[facility] PATHOLOGY [id number] [place] [address], CBC WITH DIFFERENTIALon 10 Erythrocyte distribution width (RBC) [Ratio] 14.0 % Normal 11.5-14.5 [facility] Comment on above: Performed By: #### M DIFF, CBCDSAT ####[facility] PATHOLOGY JZIZOOLPOP[address] [place] [address], Hematocrit (Bld) [Volume fraction] 39.2 % Low 41.0-53.0 [facility] Comment on above: Performed By: #### M DIFF, CBCDSAT ####[facility] PATHOLOGY [id number] [place] [address], Hemoglobin (Bld) [Mass/Vol] 12.8 g/dL Low 13.9-16.3 [facility] Comment on above: Performed By: #### M DIFF, CBCDSAT ####[facility] PATHOLOGY [id number] [place] [address], MCH (RBC) [Entitic mass] 30.2 pg Normal 26.0-34.0 [facility] Comment on above: Performed By: #### M DIFF, CBCDSAT ####[facility] PATHOLOGY [id number] [place] [address], MCHC (RBC) [Mass/Vol] 32.6 g/dL Normal 32.0-35.9 [facility] Comment on above: Performed By: #### M DIFF, CBCDSAT ####S PATHOLOGY [id number] [place], MCV (RBC) [Entitic vol] 93 fL Normal 80-100 [facility] Comment on above: Performed By: #### M DIFF, CBCDSAT ####[facility] PATHOLOGY [id number] [place], MONOCYTE DISTRIBUTION WIDTH Normal [facility] Comment on above: Performed By: #### M DIFF, CBCDSAT ####S PATHOLOGY [id number] [place], Platelet mean volume (Bld) [Entitic vol] 9.1 fL Normal 7.5-11.2 [facility] Comment on above: Performed By: #### M DIFF, CBCDSAT ####[facility] PATHOLOGY [id number] [place], Platelets (Bld) [#/Vol] 211 10*3/uL Normal 150-400 [facility] Comment on above: Performed By: #### M DIFF, CBCDSAT ####S PATHOLOGY [id number] [place], RBC (Bld) [#/Vol] 4.24 10*6/uL Low 4.50-5.90 [facility] Comment on above: Performed By: #### M DIFF, CBCDSAT ####[facility] PATHOLOGY [id number] [place], WBC (Bld) [#/Vol] 22.0 10*3/uL High 4.5-11.5 [facility] Comment on above: Performed By: #### M DIFF, CBCDSAT ####S PATHOLOGY [id number] [place], [place], CT CHEST W/ CONTRASTon 03-19 CT CHEST W/ CONTRAST Normal [facility] CT HEAD W/O CONTRASTon 03-19 CT HEAD W/O CONTRAST Normal [facility] Care Plan Noteon 03-19-2021 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 Interface Message Text Normal [facility] Consultson 03-19-2021 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 Interface Message Text Normal [facility] GLUCOSE, FINGERSTICK-IN OFFI CEon 03-19-2021 Glucose [Mass/Vol] 330 mg/dL High 80-116 [facility] Comment on above: Result Comment: Salvador jovel RN, APN, MD Performed By: #### 8 2948 ####NURSING GLUCOSE [id number] [place], [address] Glucose [Mass/Vol] 316 mg/dL High 80-116 [facility] Comment on above: Result Comment: Foll ow Protocol Performed By: #### 8 2948 ####NURSING GLUCOSE [id number] [place], [address] Glucose [Mass/Vol] 282 mg/dL High 80-116 [facility] Comment on above: Result Comment: Salvador jovel RN, APN, MD Performed By: #### 8 2948 ####NURSING GLUCOSE [id number] [place], [address] HEPATIC FUNCTION PANELon Albumin [Mass/Vol] 2.8 g/dL Low 3.4-5.1 [facility] Comment on above: Performed By: #### H EDUAR TRIG ####[facility] [id number] [place], [place], ALK 63 IU/L Normal 40-200 [facility] Comment on above: Performed By: #### H EDUAR TRIG ####[facility] [id number] [place], ALT [Catalytic activity/Vol] 44 U/L High 7-40 [facility] Comment on above: Performed By: #### H EDUAR TRIG ####[facility] [id number] [place], AST [Catalytic activity/Vol] 55 U/L High 7-40 [facility] Comment on above: Result Comment: Hemo lysis present Performed By: #### H EDUAR TRIG ####[facility] [id number] [place], Bilirubin [Mass/Vol] 2.1 mg/dL High 0.1-1.5 [facility] Comment on above: Performed By: #### Case WITT, TRIG ####S PATHOLOGY [id number] [place], Bilirubin.direct [Mass/Vol] 0.60 mg/dL High 0.10-0.30 [facility] Comment on above: Performed By: #### Case WITT, TRIG ####S PATHOLOGY [id number] [place], Protein [Mass/Vol] 5.8 g/dL Normal 5.7-8.1 [facility] Comment on above: Performed By: #### H EDUAR, TRIG ####S PATHOLOGY [id number] [place], MAGNESIUMon 03-19-2021 Magnesium [Mass/Vol] 2.3 mg/dL Normal 1.6-2.8 [facility] Comment on above: Result Comment: Hemo lysis present Performed By: #### Deborah H8, MG, PHOS ####S PATHOLOGY [id number] [place], Magnesium [Mass/Vol] 1.6 mg/dL Normal 1.6-2.8 [facility] Comment on above: Performed By: #### Deborah H8, MG, PHOS ####S PATHOLOGY [id number] [place], MANUAL DIFF AND MORPHon 03-04 CELLS COUNTED TOTAL # IN BLOOD 100 Normal [facility] Comment on above: Performed By: #### M DIFF, CBCDSAT ####S PATHOLOGY [id number] [place], MONOCYTES % BY MANUAL COUNT 8.0 % Normal 2.0-11.0 [facility] Comment on above: Performed By: #### M DIFF, CBCDSAT ####S PATHOLOGY [id number] [place], MONOCYTES ABS BY MANUAL COUNT 1.76 K/uL High 0.20-1.00 [facility] Comment on above: Performed By: #### M DIFF, CBCDSAT ####[facility] PATHOLOGY [id number] [place], NEUTROPHILS % BY MANUAL COUNT 92.0 % High 31.0-76.0 [facility] Comment on above: Performed By: #### M DIFF, CBCDSAT ####[facility] PATHOLOGY [id number] [place], NEUTROPHILS ABS BY MANUAL COUNT 20.24 K/uL High 1.50-8.00 [facility] Comment on above: Performed By: #### M DIFF, CBCDSAT ####[facility] PATHOLOGY [id number] [place], POLYCHROMASIA Slight Normal [facility] Comment on above: Performed By: #### M DIFF, CBCDSAT ####[facility] PATHOLOGY [id number] [place], MRSA SCREENon 03-19-2021 MRSA DNA MICHELLE+probe Ql (Unsp spec) CMR: No methicillin resistant Staphylococcus aureus isolated. Normal No methicillin resistant Staphylococcus aureus isolated. [facility] Comment on above: Performed By: #### C MR ####[facility] Xearzyjwe2392 [place], [place] PARTIAL THROMBOPLASTIN TIMEo n 03-19-2021 aPTT Coag (Bld) [Time] 64 s High 25-37 [facility] Comment on above: Performed By: #### A PTT ####[facility] PATHOLOGY [id number] [place] [address], aPTT Coag (Bld) [Time] 36 s Normal 25-37 [facility] Comment on above: Performed By: #### A PTT ####[facility] PATHOLOGY [id number] [place], PHOSPHORUSon 03-19-2021 Phosphate [Mass/Vol] 2.2 mg/dL Low 2.3-4.2 [facility] Comment on above: Performed By: #### C H8, MG, PHOS ####[facility] PATHOLOGY [id number] [place], Phosphate [Mass/Vol] 1.5 mg/dL Low 2.3-4.2 [facility] Comment on above: Performed By: #### C H8, MG, PHOS ####[facility] [id number] [place], Procedureson 03-19-2021 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 Interface Message Text Normal [facility] Progress Noteson 03-19-2021 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 Interface Message Text Dr Rebollar notified of critical Potassium of 7.8 hemolyzed, read back result. Will continue to monitor. Normal [facility] 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 Interface Message Text Normal [facility] RESPIRATORY CULTURE, MISCon 03-19-2021 RESPIRATORY CULTURE, MISC Normal [facility] Comment on above: Performed By: #### C RESP ####[facility] Evtowwtuq5783 [place], [place] TRIGLYCERIDESon 03-19-2021 Triglyceride [Mass/Vol] 161 mg/dL High <151 [facility] Comment on above: Performed By: #### H EPATIC, TRIG ####[facility] [id number] [place], XR CHEST 1 VIEW AP OR PAon XR CHEST 1 VIEW AP OR PA Normal [facility] BASIC METABOLIC PANELon 03-04 Anion gap [Moles/Vol] 16 mmol/L Normal 10-20 [facility] Comment on above: Performed By: #### P HOS, MG, CH8 ####[facility] [id number] [place], Calcium [Mass/Vol] 8.6 mg/dL Normal 8.4-10.4 [facility] Comment on above: Performed By: #### P HOS, MG, CH8 ####[facility] [id number] [place], Chloride [Moles/Vol] 103 mmol/L Normal 97-111 [facility] Comment on above: Performed By: #### P HOS, MG, CH8 ####[facility] [id number] [place], CO2 [Moles/Vol] 24 mmol/L Normal 21-30 [facility] Comment on above: Performed By: #### P HOS, MG, CH8 ####[facility] [id number] [place], Creatinine [Mass/Vol] 1.04 mg/dL Normal 0.80-1.30 [facility] Comment on above: Performed By: #### P HOS MG, CH8 ####[facility] [id number] [place], ESTIMATED GFR (CKD-EPI) 70 mL/min/1.73sqm Normal >=60 [facility] Comment on above: Performed By: #### P HOS MG, CH8 ####[facility] [id number] [place] [address], Glucose [Mass/Vol] 214 mg/dL High 80-116 [facility] Comment on above: Performed By: #### P HOS MG, CH8 ####S PATHOLOGY [id number] [place] [address], Potassium [Moles/Vol] 3.9 mmol/L Normal 3.3-5.3 [facility] Comment on above: Performed By: #### P HOS MG, CH8 ####[facility] [id number] [place] [address], Sodium [Moles/Vol] 139 mmol/L Normal 135-148 [facility] Comment on above: Performed By: #### P HOS MG, CH8 ####S PATHOLOGY [id number] [place], Urea nitrogen [Mass/Vol] 10 mg/dL Normal 8-22 [facility] Comment on above: Performed By: #### P HOS, MG, CH8 ####[facility] [id number] [place] [address], CBC WITH DIFFERENTIALon 03-04 Erythrocyte distribution width (RBC) [Ratio] 13.8 % Normal 11.5-14.5 [facility] Comment on above: Performed By: #### M DIFF, CBCDSAT ####[facility] [id number] [place], Hematocrit (Bld) [Volume fraction] 38.3 % Low 41.0-53.0 [facility] Comment on above: Performed By: #### M DIFF, CBCDSAT ####[facility] PATHOLOGY [id number] [place], Hemoglobin (Bld) [Mass/Vol] 12.7 g/dL Low 13.9-16.3 [facility] Comment on above: Performed By: #### M DIFF, CBCDSAT ####[facility] PATHOLOGY [id number] [place], MCH (RBC) [Entitic mass] 30.6 pg Normal 26.0-34.0 [facility] Comment on above: Performed By: #### M DIFF, CBCDSAT ####[facility] PATHOLOGY [id number] [place] [address], MCHC (RBC) [Mass/Vol] 33.3 g/dL Normal 32.0-35.9 [facility] Comment on above: Performed By: #### M DIFF, CBCDSAT ####[facility] PATHOLOGY [id number] [place], MCV (RBC) [Entitic vol] 92 fL Normal 80-100 [facility] Comment on above: Performed By: #### M DIFF, CBCDSAT ####[facility] PATHOLOGY [id number] [place], MONOCYTE DISTRIBUTION WIDTH Normal [facility] Comment on above: Performed By: #### M DIFF, CBCDSAT ####[facility] PATHOLOGY [id number] [place], Platelet mean volume (Bld) [Entitic vol] 9.0 fL Normal 7.5-11.2 [facility] Comment on above: Performed By: #### M DIFF, CBCDSAT ####[facility] PATHOLOGY [id number] [place] [address], Platelets (Bld) [#/Vol] 209 10*3/uL Normal 150-400 [facility] Comment on above: Performed By: #### M DIFF, CBCDSAT ####[facility] [id number] [place], RBC (Bld) [#/Vol] 4.17 10*6/uL Low 4.50-5.90 [facility] Comment on above: Performed By: #### M DIFF, CBCDSAT ####[facility] [id number] [place], WBC (Bld) [#/Vol] 16.9 10*3/uL High 4.5-11.5 [facility] Comment on above: Performed By: #### M DIFF, CBCDSAT ####[facility] [id number] [place], Care Plan Noteon 03-18-2021 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 Interface Message Text Normal [facility] GLUCOSE, FINGERSTICK-IN OFFI CEon 03-18-2021 Glucose [Mass/Vol] 234 mg/dL High 80-116 [facility] Comment on above: Performed By: #### 8 2723 ####NURSING GLUCOSE [id number] [place], [address] Glucose [Mass/Vol] 216 mg/dL High 80-116 [facility] Comment on above: Result Comment: Salvador jovel RN, APN, MD Performed By: #### 8 3509 ####NURSING GLUCOSE [id number] [place], [address] Glucose [Mass/Vol] 197 mg/dL High 80-116 [facility] Comment on above: Result Comment: Salvador jovel RN, APN, MD Performed By: #### 8 5822 ####NURSING GLUCOSE [id number] [place], [address] Glucose [Mass/Vol] 200 mg/dL High 80-116 [facility] Comment on above: Result Comment: Salvador jovel RN, APN, MD Performed By: #### 8 1818 ####NURSING GLUCOSE [id number] [place], [address] MAGNESIUMon 03-18-2021 Magnesium [Mass/Vol] 1.8 mg/dL Normal 1.6-2.8 [facility] Comment on above: Performed By: #### P HOS, MG, CH8 ####[facility] [id number] [place], MANUAL DIFF AND MORPHon 10 ANISOCYTOSIS Slight Normal [facility] Comment on above: Performed By: #### M DIFF, CBCDSAT ####S PATHOLOGY [id number] [place], CELLS COUNTED TOTAL # IN BLOOD 100 Normal [facility] Comment on above: Performed By: #### M DIFF, CBCDSAT ####[facility] PATHOLOGY [id number] [place], LYMPHOCYTES % BY MANUAL COUNT 7.0 % Low 24.0-44.0 [facility] Comment on above: Performed By: #### M DIFF, CBCDSAT ####[facility] PATHOLOGY [id number] [place], LYMPHOCYTES ABS BY MANUAL COUNT 1.18 K/uL Normal 1.00-4.80 [facility] Comment on above: Performed By: #### M DIFF, CBCDSAT ####[facility] PATHOLOGY [id number] [place], MONOCYTES % BY MANUAL COUNT 11.0 % Normal 2.0-11.0 [facility] Comment on above: Performed By: #### M DIFF, CBCDSAT ####[facility] PATHOLOGY [id number] [place] [address], MONOCYTES ABS BY MANUAL COUNT 1.86 K/uL High 0.20-1.00 [facility] Comment on above: Performed By: #### M DIFF, CBCDSAT ####[facility] PATHOLOGY [id number] [place], NEUTROPHILS % BY MANUAL COUNT 82.0 % High 31.0-76.0 [facility] Comment on above: Performed By: #### M DIFF, CBCDSAT ####S PATHOLOGY [id number] [place], NEUTROPHILS ABS BY MANUAL COUNT 13.86 K/uL High 1.50-8.00 [facility] Comment on above: Performed By: #### M DIFF, CBCDSAT ####S PATHOLOGY [id number] [place], POLYCHROMASIA Slight Normal [facility] Comment on above: Performed By: #### M DIFF, CBCDSAT ####S PATHOLOGY [id number] [place], PARTIAL THROMBOPLASTIN TIMEo n 03-18-2021 aPTT Coag (Bld) [Time] 60 s High 25-37 [facility] Comment on above: Performed By: #### A PTT ####[facility] PATHOLOGY [id number] [place], PHOSPHORUSon 03-18-2021 Phosphate [Mass/Vol] 1.5 mg/dL Low 2.3-4.2 [facility] Comment on above: Performed By: #### P HOS ####[facility] PATHOLOGY [id number] [place], Phosphate [Mass/Vol] 2.1 mg/dL Low 2.3-4.2 [facility] Comment on above: Performed By: #### P HOS, MG, CH8 ####[facility] PATHOLOGY [id number] [place], Progress Noteson 03-18-2021 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 Interface Message Text Normal [facility] 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 Interface Message Text Normal [facility] 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 Interface Message Text Normal [facility] 1:1 Interactionon 03-17-2021 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 Interface Message Text Normal [facility] BASIC METABOLIC PANELon 03-04 Anion gap [Moles/Vol] 12 mmol/L Normal -20 [facility] Comment on above: Performed By: #### T RIG, CH8, HEPATIC, PHOS, MG ####S PATHOLOGY [id number] [place], Calcium [Mass/Vol] 8.0 mg/dL Low 8.4-10.4 [facility] Comment on above: Performed By: #### T RIG, CH8, HEPATIC, PHOS, MG ####[facility] [id number] [place], Chloride [Moles/Vol] 107 mmol/L Normal 97-111 [facility] Comment on above: Performed By: #### T RIG, CH8, HEPATIC, PHOS, MG ####[facility] [id number] [place], CO2 [Moles/Vol] 24 mmol/L Normal 21-30 [facility] Comment on above: Performed By: #### T RIG, CH8, HEPATIC, PHOS, MG ####[facility] [id number] [place], Creatinine [Mass/Vol] 1.08 mg/dL Normal 0.80-1.30 [facility] Comment on above: Performed By: #### T RIG, CH8, HEPATIC, PHOS, MG ####[facility] [id number] [place], ESTIMATED GFR (CKD-EPI) 67 mL/min/1.73sqm Normal >=60 [facility] Comment on above: Performed By: #### T RIG, CH8, HEPATIC, PHOS, MG ####[facility] [id number] [place], Glucose [Mass/Vol] 126 mg/dL High 80-116 [facility] Comment on above: Performed By: #### T RIG, CH8, HEPATIC, PHOS, MG ####[facility] [id number] [place], Potassium [Moles/Vol] 4.0 mmol/L Normal 3.3-5.3 [facility] Comment on above: Performed By: #### T RIG, CH8, HEPATIC, PHOS, MG ####[facility] [id number] [place], Sodium [Moles/Vol] 139 mmol/L Normal 135-148 [facility] Comment on above: Performed By: #### T RIG, CH8, HEPATIC, PHOS, MG ####[facility] [id number] [place], Urea nitrogen [Mass/Vol] 13 mg/dL Normal 8-22 [facility] Comment on above: Performed By: #### T RIG, CH8, HEPATIC, PHOS, MG ####[facility] PATHOLOGY [id number] [place], BLOOD GAS, ARTERIALon 2020 CR BARI -0.3 mmol/L Normal -2.0-2.0 [facility] Comment on above: Performed By: #### C R BGA ####[facility] PATHOLOGY [id number] [place], CR PCO2 44.2 mm Hg Normal 35.0-45.0 [facility] Comment on above: Performed By: #### C R BGA ####[facility] PATHOLOGY [id number] [place], CR PHA 7.366 Normal 7.35-7.45 [facility] Comment on above: Performed By: #### C R BGA ####[facility] PATHOLOGY [id number] [place], CR PO2 89 mm Hg Normal 80-100 [facility] Comment on above: Performed By: #### C R BGA ####[facility] PATHOLOGY [id number] [place], FIO2 (CATEGORY) 40% Normal [facility] Comment on above: Performed By: #### C R BGA ####[facility] PATHOLOGY [id number] [place], HCO3 (Bld) [Moles/Vol] 25 mmol/L Normal 22-28 [facility] Comment on above: Performed By: #### C R BGA ####[facility] PATHOLOGY [id number] [place], MODE Vent Normal [facility] Comment on above: Performed By: #### C R BGA ####[facility] PATHOLOGY [id number] [place], Oxygen saturation in Blood 96.6 % Normal >=95.[address] [facility] Comment on above: Performed By: #### C R BGA ####[facility] PATHOLOGY [id number] [place], CBC WITH DIFFERENTIALon 03-04 Erythrocyte distribution width (RBC) [Ratio] 13.8 % Normal 11.5-14.5 [facility] Comment on above: Performed By: #### M DIFF, CBCDSAT ####[facility] PATHOLOGY [id number] [place] [address], Hematocrit (Bld) [Volume fraction] 35.0 % Low 41.0-53.0 [facility] Comment on above: Performed By: #### M DIFF, CBCDSAT ####[facility] PATHOLOGY [id number] [place] [address], Hemoglobin (Bld) [Mass/Vol] 11.9 g/dL Low 13.9-16.3 [facility] Comment on above: Performed By: #### M DIFF, CBCDSAT ####[facility] PATHOLOGY [id number] [place] [address], MCH (RBC) [Entitic mass] 30.9 pg Normal 26.0-34.0 [facility] Comment on above: Performed By: #### M DIFF, CBCDSAT ####[facility] PATHOLOGY [id number] [place] [address], MCHC (RBC) [Mass/Vol] 34.0 g/dL Normal 32.0-35.9 [facility] Comment on above: Performed By: #### M DIFF, CBCDSAT ####[facility] PATHOLOGY [id number] [place] [address], MCV (RBC) [Entitic vol] 91 fL Normal 80-100 [facility] Comment on above: Performed By: #### M DIFF, CBCDSAT ####[facility] PATHOLOGY [id number] [place] [address], MONOCYTE DISTRIBUTION WIDTH Normal [facility] Comment on above: Performed By: #### M DIFF, CBCDSAT ####[facility] PATHOLOGY [id number] [place] [address], Platelet mean volume (Bld) [Entitic vol] 9.1 fL Normal 7.5-11.2 [facility] Comment on above: Performed By: #### M DIFF, CBCDSAT ####[facility] PATHOLOGY [id number] [place], Platelets (Bld) [#/Vol] 183 10*3/uL Normal 150-400 [facility] Comment on above: Performed By: #### M DIFF, CBCDSAT ####[facility] PATHOLOGY [id number] [place], RBC (Bld) [#/Vol] 3.86 10*6/uL Low 4.50-5.90 [facility] Comment on above: Performed By: #### M DIFF, CBCDSAT ####[facility] PATHOLOGY [id number] [place], WBC (Bld) [#/Vol] 10.7 10*3/uL Normal 4.5-11.5 [facility] Comment on above: Performed By: #### M DIFF, CBCDSAT ####[facility] PATHOLOGY [id number] [place] [address], Basophils (Bld) [#/Vol] 0.06 10*3/uL Normal 0.00-0.20 [facility] Comment on above: Performed By: #### C BCDSAT ####[facility] PATHOLOGY [id number] [place], Basophils/100 WBC (Bld) 0.7 % Normal <=1.9 [facility] Comment on above: Performed By: #### C BCDSAT ####[facility] PATHOLOGY [id number] [place], Eosinophils (Bld) [#/Vol] 0.38 10*3/uL Normal 0.00-0.70 [facility] Comment on above: Performed By: #### C BCDSAT ####[facility] PATHOLOGY [id number] [place], Eosinophils/100 WBC (Bld) 4.0 % Normal 0.1-4.0 [facility] Comment on above: Performed By: #### C BCDSAT ####[facility] PATHOLOGY [id number] [place], Erythrocyte distribution width (RBC) [Ratio] 13.8 % Normal 11.5-14.5 [facility] Comment on above: Performed By: #### C BCDSAT ####[facility] PATHOLOGY [id number] [place], Hematocrit (Bld) [Volume fraction] 33.5 % Low 41.0-53.0 [facility] Comment on above: Performed By: #### C BCDSAT ####[facility] PATHOLOGY [id number] [place], Hemoglobin (Bld) [Mass/Vol] 11.1 g/dL Low 13.9-16.3 [facility] Comment on above: Performed By: #### C BCDSAT ####[facility] PATHOLOGY [id number] [place], Lymphocytes (Bld) [#/Vol] 0.98 10*3/uL Low 1.00-4.80 [facility] Comment on above: Performed By: #### C BCDSAT ####[facility] PATHOLOGY [id number] [place] [address], Lymphocytes/100 WBC (Bld) 10.3 % Low 24.0-44.0 [facility] Comment on above: Performed By: #### C BCDSAT ####[facility] PATHOLOGY [id number] [place] [address], MCH (RBC) [Entitic mass] 30.2 pg Normal 26.0-34.0 [facility] Comment on above: Performed By: #### C BCDSAT ####[facility] PATHOLOGY [id number] [place] [address], MCHC (RBC) [Mass/Vol] 33.0 g/dL Normal 32.0-35.9 [facility] Comment on above: Performed By: #### C BCDSAT ####S PATHOLOGY [id number] [place], MCV (RBC) [Entitic vol] 91 fL Normal 80-100 [facility] Comment on above: Performed By: #### C BCDSAT ####[facility] PATHOLOGY [id number] [place], MONOCYTE DISTRIBUTION WIDTH Normal [facility] Comment on above: Performed By: #### C BCDSAT ####[facility] PATHOLOGY [id number] [place], Monocytes (Bld) [#/Vol] 1.19 10*3/uL High 0.20-1.00 [facility] Comment on above: Performed By: #### C BCDSAT ####[facility] PATHOLOGY [id number] [place], Monocytes/100 WBC (Bld) 12.4 % High 2.0-11.[address] [facility] Comment on above: Performed By: #### C BCDSAT ####[facility] PATHOLOGY [id number] [place], Neutrophils (Bld) [#/Vol] 6.95 10*3/uL Normal 1.50-8.00 [facility] Comment on above: Performed By: #### C BCDSAT ####[facility] PATHOLOGY [id number] [place] [address], Neutrophils/100 WBC (Bld) 72.7 % Normal 31.0-76.0 [facility] Comment on above: Performed By: #### C BCDSAT ####[facility] PATHOLOGY [id number] [place], [place], Platelet mean volume (Bld) [Entitic vol] 8.9 fL Normal 7.5-11.2 [facility] Comment on above: Performed By: #### C BCDSAT ####[facility] PATHOLOGY [id number] [place], [place], Platelets (Bld) [#/Vol] 174 10*3/uL Normal 150-400 [facility] Comment on above: Performed By: #### C BCDSAT ####S PATHOLOGY [id number] [place], [place], RBC (Bld) [#/Vol] 3.67 10*6/uL Low 4.50-5.90 [facility] Comment on above: Performed By: #### C BCDSAT ####S PATHOLOGY [id number] [place], WBC (Bld) [#/Vol] 9.6 10*3/uL Normal 4.5-11.5 [facility] Comment on above: Performed By: #### C BCDSAT ####[facility] [id number] [place], [place], Care Plan Noteon 03-17-2021 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 Interface Message Text Normal [facility] Consultson 03-17-2021 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 Interface Message Text Normal [facility] 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 Interface Message Text Normal [facility] GLUCOSE, FINGERSTICK-IN OFFI CEon 03-17-2021 Glucose [Mass/Vol] 199 mg/dL High 80-116 [facility] Comment on above: Result Comment: Salvador jovel RN, APN, MD Performed By: #### 8 2948 ####NURSING GLUCOSE [id number] [place], [address] Glucose [Mass/Vol] 144 mg/dL High 80-116 [facility] Comment on above: Result Comment: Foll ow Protocol Performed By: #### 8 2948 ####NURSING GLUCOSE [id number] [place], [address] Glucose [Mass/Vol] 131 mg/dL High 80-116 [facility] Comment on above: Result Comment: Foll ow Protocol Performed By: #### 8 2948 ####NURSING GLUCOSE [id number] [place], [address] Glucose [Mass/Vol] 107 mg/dL Normal 80-116 [facility] Comment on above: Result Comment: Salvador jovel RN, APN, MD Performed By: #### 8 2948 ####NURSING GLUCOSE [id number] [place], [address] HEPATIC FUNCTION PANELon Albumin [Mass/Vol] 2.6 g/dL Low 3.4-5.1 [facility] Comment on above: Performed By: #### YOEL SANCHEZ, HEPATIC, PHOS, MG ####[facility] [id number] [place], ALK 64 IU/L Normal 40-200 [facility] Comment on above: Performed By: #### T RIG, CH8, HEPATIC, PHOS, MG ####[facility] [id number] [place], ALT [Catalytic activity/Vol] 30 U/L Normal 7-40 [facility] Comment on above: Performed By: #### T RIG, CH8, HEPATIC, PHOS, MG ####[facility] [id number] [place], AST [Catalytic activity/Vol] 25 U/L Normal 7-40 [facility] Comment on above: Performed By: #### T RIG, CH8, HEPATIC, PHOS, MG ####[facility] PATH[facility] [id number] [place], Bilirubin [Mass/Vol] 1.2 mg/dL Normal 0.1-1.5 [facility] Comment on above: Performed By: #### T RIG, CH8, HEPATIC, PHOS, MG ####S PATHOLOGY [id number] [place], Bilirubin.direct [Mass/Vol] 0.50 mg/dL High 0.10-0.30 [facility] Comment on above: Performed By: #### T RIG, CH8, HEPATIC, PHOS, MG ####[facility] PATH[facility] [id number] [place], Protein [Mass/Vol] 5.4 g/dL Low 5.7-8.1 [facility] Comment on above: Performed By: #### T RIG, CH8, HEPATIC, PHOS, MG ####[facility] [id number] [place], MAGNESIUMon 03-17-2021 Magnesium [Mass/Vol] 2.1 mg/dL Normal 1.6-2.8 [facility] Comment on above: Performed By: #### T RIG, CH8, HEPATIC, PHOS, MG ####[facility] PATH[facility] [id number] [place], MANUAL DIFF AND MORPHon 03-04 BASOPHILS % BY MANUAL COUNT 1.0 % Normal <=1.9 [facility] Comment on above: Performed By: #### M DIFF, CBCDSAT ####S PATHOLOGY [id number] [place], BASOPHILS ABS BY MANUAL COUNT 0.11 K/uL Normal 0.00-0.20 [facility] Comment on above: Performed By: #### M DIFF, CBCDSAT ####[facility] PATHOLOGY [id number] [place], CELLS COUNTED TOTAL # IN BLOOD 100 Normal [facility] Comment on above: Performed By: #### M DIFF, CBCDSAT ####[facility] PATHOLOGY [id number] [place], EOSINOPHILS % BY MANUAL COUNT 1.0 % Normal 0.1-4.0 [facility] Comment on above: Performed By: #### M DIFF, CBCDSAT ####[facility] PATHOLOGY [id number] [place] [address], EOSINOPHILS ABS BY MANUAL COUNT 0.11 K/uL Normal 0.00-0.70 [facility] Comment on above: Performed By: #### M DIFF, CBCDSAT ####[facility] PATHOLOGY [id number] [place] [address], LYMPHOCYTES % BY MANUAL COUNT 11.0 % Low 24.0-44.0 [facility] Comment on above: Performed By: #### M DIFF, CBCDSAT ####[facility] PATHOLOGY [id number] [place] [address], LYMPHOCYTES ABS BY MANUAL COUNT 1.18 K/uL Normal 1.00-4.80 [facility] Comment on above: Performed By: #### M DIFF, CBCDSAT ####[facility] PATHOLOGY [id number] [place] [address], METAMYELOCYTES % BY MANUAL COUNT 3 % High <0 [facility] Comment on above: Performed By: #### M DIFF, CBCDSAT ####S PATHOLOGY [id number] [place], METAMYELOCYTES ABS BY MANUAL COUNT 0.32 K/uL High <0.01 [facility] Comment on above: Performed By: #### M DIFF, CBCDSAT ####[facility] [id number] [place], MONOCYTES % BY MANUAL COUNT 7.0 % Normal 2.0-11.0 [facility] Comment on above: Performed By: #### M DIFF, CBCDSAT ####S PATHOLOGY [id number] [place], MONOCYTES ABS BY MANUAL COUNT 0.75 K/uL Normal 0.20-1.00 [facility] Comment on above: Performed By: #### M DIFF, CBCDSAT ####[facility] PATHOLOGY [id number] [place], NEUTROPHILS % BY MANUAL COUNT 77.0 % High 31.0-76.0 [facility] Comment on above: Performed By: #### M DIFF, CBCDSAT ####[facility] PATHOLOGY [id number] [place], NEUTROPHILS ABS BY MANUAL COUNT 8.24 K/uL High 1.50-8.00 [facility] Comment on above: Performed By: #### M DIFF, CBCDSAT ####[facility] PATHOLOGY [id number] [place], RBC MORPHOLOGY Normal Normal [facility] Comment on above: Performed By: #### M DIFF, CBCDSAT ####[facility] PATHOLOGY [id number] [place], PARTIAL THROMBOPLASTIN TIMEo n 03-17-2021 aPTT Coag (Bld) [Time] 68 s High 25-37 [facility] Comment on above: Performed By: #### A PTT ####[facility] PATHOLOGY [id number] [place], PHOSPHORUSon 03-17-2021 Phosphate [Mass/Vol] 3.6 mg/dL Normal 2.3-4.2 [facility] Comment on above: Performed By: #### T RIG, CH8, HEPATIC, PHOS, MG ####S PATHOLOGY [id number] [place], Progress Noteson 03-17-2021 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 Interface Message Text Normal [facility] 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 Interface Message Text Normal [facility] 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 Interface Message Text Normal [facility] 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 Interface Message Text Normal [facility] TRIGLYCERIDESon 03-17-2021 Triglyceride [Mass/Vol] 191 mg/dL High <[address] [facility] Comment on above: Performed By: #### T RIG, CH8, HEPATIC, PHOS, MG ####[facility] [id number] [place], 1:1 Interactionon 03-16-2021 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 Interface Message Text Normal [facility] BASIC METABOLIC PANELon 03-04 Anion gap [Moles/Vol] 16 mmol/L Normal 10-[address] [facility] Comment on above: Performed By: #### C H8, MG, TRIG, PHOS, VITB12 ####[facility] [id number] [place], Calcium [Mass/Vol] 8.1 mg/dL Low 8.4-10.[address] [facility] Comment on above: Performed By: #### C H8, MG, TRIG, PHOS, VITB12 ####[facility] PATH[facility] [id number] [place], Chloride [Moles/Vol] 105 mmol/L Normal 97-111 [facility] Comment on above: Performed By: #### C H8, MG, TRIG, PHOS, VITB12 ####[facility] [id number] [place], CO2 [Moles/Vol] 24 mmol/L Normal 21-30 [facility] Comment on above: Performed By: #### C H8, MG, TRIG, PHOS, VITB12 ####[facility] PATH[facility] [id number] [place], Creatinine [Mass/Vol] 1.16 mg/dL Normal 0.80-1.30 [facility] Comment on above: Performed By: #### C H8, MG, TRIG, PHOS, VITB12 ####[facility] [id number] [place], ESTIMATED GFR (CKD-EPI) 61 mL/min/1.73sqm Normal >=60 [facility] Comment on above: Performed By: #### Deborah H8, MG, TRIG, PHOS, VITB12 ####S PATHOLOGY [id number] [place], Glucose [Mass/Vol] 99 mg/dL Normal 80-116 [facility] Comment on above: Performed By: #### Deborah HClementina, MG, TRIG, PHOS, VITB12 ####[facility] PATHOLOGY [id number] [place], Potassium [Moles/Vol] 3.5 mmol/L Normal 3.3-5.3 [facility] Comment on above: Performed By: #### Deborah H8, MG, TRIG, PHOS, VITB12 ####S PATHOLOGY [id number] [place], Sodium [Moles/Vol] 141 mmol/L Normal 135-148 [facility] Comment on above: Performed By: #### Deborah HClementina, MG, TRIG, PHOS, VITB12 ####S PATHOLOGY [id number] [place], Urea nitrogen [Mass/Vol] 13 mg/dL Normal 8-22 [facility] Comment on above: Performed By: #### Deborah H8, MG, TRIG, PHOS, VITB12 ####[facility] PATHOLOGY [id number] [place], CBC WITH DIFFERENTIALon 03-04 Erythrocyte distribution width (RBC) [Ratio] 13.9 % Normal 11.5-14.5 [facility] Comment on above: Performed By: #### Deborah APARICIO MDIFF ####S PATHOLOGY [id number] [place], Hematocrit (Bld) [Volume fraction] 33.3 % Low 41.0-53.0 [facility] Comment on above: Performed By: #### ALEXANDRO MCCORMACK ####S PATHOLOGY [id number] [place], Hemoglobin (Bld) [Mass/Vol] 11.2 g/dL Low 13.9-16.3 [facility] Comment on above: Performed By: ###ALEXANDRO BURNHAM ####Ck PATHOLOGY [id number] [place], MCH (RBC) [Entitic mass] 30.8 pg Normal 26.0-34.0 [facility] Comment on above: Performed By: #### ALEXANDRO MCCORMACK ####S PATHOLOGY [id number] [place], MCHC (RBC) [Mass/Vol] 33.7 g/dL Normal 32.0-35.9 [facility] Comment on above: Performed By: ###ALEXANDRO BURNHAM ####Ck PATHOLOGY [id number] [place], MCV (RBC) [Entitic vol] 91 fL Normal 80-100 [facility] Comment on above: Performed By: ###ALEXANDRO BURNHAM ####[facility] PATHOLOGY [id number] [place], MONOCYTE DISTRIBUTION WIDTH Normal [facility] Comment on above: Performed By: ###ALEXANDRO BURNHAM ####[facility] PATHOLOGY [id number] [place], Platelet mean volume (Bld) [Entitic vol] 8.9 fL Normal 7.5-11.2 [facility] Comment on above: Performed By: ###ALEXANDRO BURNHAM ####S PATHOLOGY [id number] [place], Platelets (Bld) [#/Vol] 175 10*3/uL Normal 150-400 [facility] Comment on above: Performed By: ###ALEXANDRO BURNHAM ####S PATHOLOGY [id number] [place], RBC (Bld) [#/Vol] 3.65 10*6/uL Low 4.50-5.90 [facility] Comment on above: Performed By: ###ALEXANDRO BURNHAM ####S PATHOLOGY [id number] [place], WBC (Bld) [#/Vol] 8.7 10*3/uL Normal 4.5-11.5 [facility] Comment on above: Performed By: #### ALEXANDRO MCCORMACK ####S PATHOLOGY [id number] [place], Erythrocyte distribution width (RBC) [Ratio] 13.7 % Normal 11.5-14.5 [facility] Comment on above: Performed By: #### ALEXANDRO MCCORMACK ####Ck PATHOLOGY [id number] [place], Hematocrit (Bld) [Volume fraction] 35.2 % Low 41.0-53.0 [facility] Comment on above: Performed By: #### ALEXANDRO MCCORMACK ####C[facility] PATHOLOGY [id number] [place], Hemoglobin (Bld) [Mass/Vol] 11.9 g/dL Low 13.9-16.3 [facility] Comment on above: Performed By: #### ALEXANDRO MCCORMACK ####[facility] PATHOLOGY [id number] [place], MCH (RBC) [Entitic mass] 31.2 pg Normal 26.0-34.0 [facility] Comment on above: Performed By: #### ALEXANDRO MCCORMACK ####[facility] PATHOLOGY [id number] [place], MCHC (RBC) [Mass/Vol] 33.8 g/dL Normal 32.0-35.9 [facility] Comment on above: Performed By: #### ALEXANDRO MCCORMACK ####S PATHOLOGY [id number] [place], MCV (RBC) [Entitic vol] 92 fL Normal 80-100 [facility] Comment on above: Performed By: #### ALEXANDRO MCCORMACK ####S PATHOLOGY [id number] [place], MONOCYTE DISTRIBUTION WIDTH Normal [facility] Comment on above: Performed By: #### Deborah GRUBBSDSAT, MDIFF ####[facility] PATHOLOGY [id number] [place], Platelet mean volume (Bld) [Entitic vol] 9.3 fL Normal 7.5-11.2 [facility] Comment on above: Performed By: #### ALEXANDRO MCCORMACK ####[facility] PATHOLOGY [id number] [place] [address], Platelets (Bld) [#/Vol] 171 10*3/uL Normal 150-[address] [facility] Comment on above: Performed By: #### ALEXANDRO MCCORMACK ####[facility] PATHOLOGY [id number] [place] [address], RBC (Bld) [#/Vol] 3.83 10*6/uL Low 4.50-5.90 [facility] Comment on above: Performed By: ###ALEXANDRO BURNHAM ####[facility] PATHOLOGY [id number] [place] [address], WBC (Bld) [#/Vol] 8.7 10*3/uL Normal 4.5-11.5 [facility] Comment on above: Performed By: ###ALEXANDRO BURNHAM ####[facility] PATHOLOGY [id number] [place] [address], Basophils (Bld) [#/Vol] 0.04 10*3/uL Normal 0.00-0.20 [facility] Comment on above: Performed By: ###Antonia APARICIO ####[facility] PATHOLOGY [id number] [place] [address], Basophils/100 WBC (Bld) 0.5 % Normal <=1.9 [facility] Comment on above: Performed By: ###Antonia APARICIO ####S PATHOLOGY [id number] [place] [address], Eosinophils (Bld) [#/Vol] 0.25 10*3/uL Normal 0.00-0.70 [facility] Comment on above: Performed By: ###Antonia APARICIO ####[facility] PATHOLOGY [id number] [place] [address], [place], Eosinophils/100 WBC (Bld) 3.3 % Normal 0.1-4.0 [facility] Comment on above: Performed By: #### C VERAAT ####S PATHOLOGY [id number] [place], Erythrocyte distribution width (RBC) [Ratio] 13.6 % Normal 11.5-14.5 [facility] Comment on above: Performed By: #### C VERAAT ####[facility] PATHOLOGY [id number] [place] [address], Hematocrit (Bld) [Volume fraction] 32.8 % Low 41.0-53.0 [facility] Comment on above: Performed By: #### C VERAAT ####[facility] PATHOLOGY [id number] [place] [address], Hemoglobin (Bld) [Mass/Vol] 10.9 g/dL Low 13.9-16.3 [facility] Comment on above: Performed By: #### C VERAAT ####[facility] PATHOLOGY [id number] [place] [address], Lymphocytes (Bld) [#/Vol] 1.19 10*3/uL Normal 1.00-4.80 [facility] Comment on above: Performed By: #### C VERAAT ####[facility] PATHOLOGY [id number] [place], Lymphocytes/100 WBC (Bld) 16.0 % Low 24.0-44.0 [facility] Comment on above: Performed By: #### C VERAAT ####S PATHOLOGY [id number] [place], MCH (RBC) [Entitic mass] 30.6 pg Normal 26.0-34.0 [facility] Comment on above: Performed By: #### C BCMARIAMAAT ####S PATHOLOGY [id number] [place] [address], MCHC (RBC) [Mass/Vol] 33.3 g/dL Normal 32.0-35.9 [facility] Comment on above: Performed By: #### C BCDSAT ####[facility] PATHOLOGY [id number] [place], MCV (RBC) [Entitic vol] 92 fL Normal 80-100 [facility] Comment on above: Performed By: #### C BCDSAT ####[facility] PATHOLOGY [id number] [place], MONOCYTE DISTRIBUTION WIDTH Normal [facility] Comment on above: Performed By: #### C HUMERADSAT ####[facility] PATHOLOGY [id number] [place], Monocytes (Bld) [#/Vol] 0.89 10*3/uL Normal 0.20-1.00 [facility] Comment on above: Performed By: #### C BCDSAT ####[facility] PATHOLOGY [id number] [place], Monocytes/100 WBC (Bld) 12.0 % High 2.0-11.0 [facility] Comment on above: Performed By: #### Deborah BCDSAT ####[facility] PATHOLOGY [id number] [place], Neutrophils (Bld) [#/Vol] 5.07 10*3/uL Normal 1.50-8.00 [facility] Comment on above: Performed By: #### C BCDSAT ####[facility] PATHOLOGY [id number] [place], Neutrophils/100 WBC (Bld) 68.3 % Normal 31.0-76.0 [facility] Comment on above: Performed By: #### C BCDSAT ####[facility] PATHOLOGY [id number] [place], Platelet mean volume (Bld) [Entitic vol] 9.0 fL Normal 7.5-11.2 [facility] Comment on above: Performed By: #### C BCDSAT ####[facility] PATHOLOGY [id number] [place], Platelets (Bld) [#/Vol] 155 10*3/uL Normal 150-400 [facility] Comment on above: Performed By: #### C BCDSAT ####[facility] [id number] [place], RBC (Bld) [#/Vol] 3.57 10*6/uL Low 4.50-5.[address] [facility] Comment on above: Performed By: #### C VERAAT ####[facility] PATH[facility] [id number] [place], WBC (Bld) [#/Vol] 7.4 10*3/uL Normal 4.5-11.[address] [facility] Comment on above: Performed By: #### C BCDSAT ####[facility] PATH[facility] [id number] [place], Care Plan Noteon 03-16-2021 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 Interface Message Text Normal [facility] Consultson 03-16-2021 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 Interface Message Text Normal [facility] GLUCOSE, FINGERSTICK-IN OFFI CEon 03-16-2021 Glucose [Mass/Vol] 94 mg/dL Normal 80-[address] [facility] Comment on above: Result Comment: Salvador jovel RN, APN, MD Performed By: #### 8 2948 ####NURSING GLUCOSE [id number] [place], [address] Glucose [Mass/Vol] 95 mg/dL Normal 80-116 [facility] Comment on above: Result Comment: Salvador jovel RN, APN, MD Performed By: #### 8 2948 ####NURSING GLUCOSE [id number] [place], [address] Glucose [Mass/Vol] 93 mg/dL Normal 80-116 [facility] Comment on above: Performed By: #### 8 2948 ####NURSING GLUCOSE [id number] [place], [address] MAGNESIUMon 03-16-2021 Magnesium [Mass/Vol] 2.2 mg/dL Normal 1.6-2.8 [facility] Comment on above: Performed By: #### C H8, MG, TRIG, PHOS, VITB12 ####[facility] [id number] [place], MANUAL DIFF AND MORPHon 10 BANDS % BY MANUAL COUNT 1 % Normal <=10 [facility] Comment on above: Performed By: #### ALEXANDRO MCCORMACK ####[facility] PATH[facility] [id number] [place], BANDS ABS BY MANUAL COUNT 0.09 K/uL High <0.01 [facility] Comment on above: Performed By: #### ALEXANDRO MCCORMACK ####[facility] [id number] [place], BASOPHILS % BY MANUAL COUNT 2.0 % High <=1.9 [facility] Comment on above: Performed By: #### ALEXANDRO MCCORMACK ####S PATHOLOGY [id number] [place], BASOPHILS ABS BY MANUAL COUNT 0.17 K/uL Normal 0.00-0.20 [facility] Comment on above: Performed By: #### ALEXANDRO MCCORMACK ####S PATHOLOGY [id number] [place], CELLS COUNTED TOTAL # IN BLOOD 100 Normal [facility] Comment on above: Performed By: #### ALEXANDRO MCCORMACK ####S PATHOLOGY [id number] [place], EOSINOPHILS % BY MANUAL COUNT 3.0 % Normal 0.1-4.0 [facility] Comment on above: Performed By: #### ALEXANDRO MCCORMACK ####[facility] [id number] [place], EOSINOPHILS ABS BY MANUAL COUNT 0.26 K/uL Normal 0.00-0.70 [facility] Comment on above: Performed By: #### ALEXANDRO MCCORMACK ####S PATHOLOGY [id number] [place], LYMPHOCYTES % BY MANUAL COUNT 10.0 % Low 24.0-44.0 [facility] Comment on above: Performed By: #### ALEXANDRO MCCORMACK ####[facility] [id number] [place], LYMPHOCYTES ABS BY MANUAL COUNT 0.87 K/uL Low 1.00-4.80 [facility] Comment on above: Performed By: #### ALEXANDRO MCCORMACK ####S PATHOLOGY [id number] [place], METAMYELOCYTES % BY MANUAL COUNT 1 % High <0 [facility] Comment on above: Performed By: #### ALEXANDRO MCCORMACK ####S PATHOLOGY [id number] [place], METAMYELOCYTES ABS BY MANUAL COUNT 0.09 K/uL High <0.01 [facility] Comment on above: Performed By: #### ALEXANDRO MCCORMACK ####S PATHOLOGY [id number] [place], MONOCYTES % BY MANUAL COUNT 10.0 % Normal 2.0-11.0 [facility] Comment on above: Performed By: #### ALEXANDRO MCCORMACK ####[facility] PATHOLOGY [id number] [place], [place], MONOCYTES ABS BY MANUAL COUNT 0.87 K/uL Normal 0.20-1.00 [facility] Comment on above: Performed By: #### ALEXANDRO MCCORMACK ####[facility] PATHOLOGY [id number] [place], NEUTROPHILS % BY MANUAL COUNT 73.0 % Normal 31.0-76.0 [facility] Comment on above: Performed By: #### ALEXANDRO MCCORMACK ####S PATHOLOGY [id number] [place], NEUTROPHILS ABS BY MANUAL COUNT 6.35 K/uL Normal 1.50-8.00 [facility] Comment on above: Performed By: #### ALEXANDRO MCCORMACK ####S PATHOLOGY [id number] [place], POLYCHROMASIA Slight Normal [facility] Comment on above: Performed By: #### ALEXANDRO MCCORMACK ####[facility] [id number] [place], BASOPHILS % BY MANUAL COUNT 1.0 % Normal <=1.9 [facility] Comment on above: Performed By: #### ALEXANDRO MCCORMACK ####[facility] [id number] [place], BASOPHILS ABS BY MANUAL COUNT 0.09 K/uL Normal 0.00-0.20 [facility] Comment on above: Performed By: #### ALEXANDRO MCCORMACK ####[facility] [id number] [place], CELLS COUNTED TOTAL # IN BLOOD 100 Normal [facility] Comment on above: Performed By: #### ALEXANDRO MCCORMACK ####[facility] [id number] [place], EOSINOPHILS % BY MANUAL COUNT 3.0 % Normal 0.1-4.0 [facility] Comment on above: Performed By: #### ALEXANDRO MCCORMACK ####[facility] [id number] [place], EOSINOPHILS ABS BY MANUAL COUNT 0.26 K/uL Normal 0.00-0.70 [facility] Comment on above: Performed By: #### ALEXANDRO MCCORMACK ####S PATHOLOGY [id number] [place], LYMPHOC[place]TES % BY MANUAL COUNT 14.0 % Low 24.0-44.0 [facility] Comment on above: Performed By: #### ALEXANDRO MCCORMACK ####[facility] [id number] [place], LYMPHOCYTES ABS BY MANUAL COUNT 1.22 K/uL Normal 1.00-4.80 [facility] Comment on above: Performed By: #### ALEXANDRO MCCORMACK ####[facility] [id number] [place], MON[place]YTES % BY MANUAL COUNT 13.0 % High 2.0-11.0 [facility] Comment on above: Performed By: #### ALEXANDRO MCCORMACK ####[facility] [id number] [place], MONOCYTES ABS BY MANUAL COUNT 1.13 K/uL High 0.20-1.00 [facility] Comment on above: Performed By: #### ALEXANDRO MCCORMACK ####S PATHOLOGY [id number] [place], NEUTROPHILS % BY MANUAL COUNT 69.0 % Normal 31.0-76.0 [facility] Comment on above: Performed By: #### ALEXANDRO MCCORMACK ####S PATHOLOGY [id number] [place], NEUTROPHILS ABS BY MANUAL COUNT 6.00 K/uL Normal 1.50-8.00 [facility] Comment on above: Performed By: #### ALEXANDRO MCCORMACK ####[facility] PATHOLOGY [id number] [place], RBC MORPHOLOGY Normal Normal [facility] Comment on above: Performed By: #### ALEXANDRO MCCORMACK ####[facility] PATHOLOGY [id number] [place], PARTIAL THROMBOPLASTIN TIMEo 03-16-2021 aPTT Coag (Bld) [Time] 72 s High 25-37 [facility] Comment on above: Performed By: #### A PTT ####[facility] PATHOLOGY [id number] [place], aPTT Coag (Bld) [Time] 70 s High 25-37 [facility] Comment on above: Performed By: #### A PTT ####S PATHOLOGY [id number] [place], aPTT Coag (Bld) [Time] 65 s High 25-37 [facility] Comment on above: Performed By: #### A PTT ####S PATHOLOGY [id number] [place], aPTT Coag (Bld) [Time] 62 s High 2537 [facility] Comment on above: Performed By: #### A PTT ####S PATHOLOGY [id number] [place], PHOSPHORUSon 03-16-2021 Phosphate [Mass/Vol] 3.2 mg/dL Normal 2.3-4.2 [facility] Comment on above: Performed By: #### C H8, MG, TRIG, PHOS, VITB12 ####[facility] [id number] [place], [place], Procedureson 03-16-2021 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 Interface Message Text Normal [facility] Progress Noteson 03-16-2021 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 Interface Message Text Normal [facility] 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 Interface Message Text Normal [facility] 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 Interface Message Text Normal [facility] TRIGLYCERIDESon 03-16-2021 Triglyceride [Mass/Vol] 240 mg/dL High <151 [facility] Comment on above: Performed By: #### C H8, MG, TRIG, PHOS, VITB12 ####S PATHOLOGY [id number] [place], URINALYSIS WITH REFLEX CULTU RE PERFORMABLEon 03-16-2021 Glucose Ql (U) Negative Normal Negative [facility] Comment on above: Order Comment: A neg ative leukocyte esterase AND negative nitrite test or absence of pyuria (urine WBC count <= 5-10) make a UTI (urinary tract infection) very unlikely in a non-neutropenic adult (<=5% likelihood in many studies). A positive leukocyte esterase, nitrite and/or pyuria is a nonspecific result. This can be seen in conditions other than a UTI e.g. asymptomatic bacteriuria, gynecologic infections, sexually transmitted infections, and noninfectious conditions (positive predictive value for UTI around 50%) Performed By: #### u rinalysiswcul ####[facility] PATHOLOGY [id number] [place], [place], #### C URINE ####[facility] Gjkqbfvbu[address] [place], [place] U APPEAR Clear Normal Clear [facility] Comment on above: Order Comment: A neg ative leukocyte esterase AND negative nitrite test or absence of pyuria (urine WBC count <= 5-10) make a UTI (urinary tract infection) very unlikely in a non-neutropenic adult (<=5% likelihood in many studies). A positive leukocyte esterase, nitrite and/or pyuria is a nonspecific result. This can be seen in conditions other than a UTI e.g. asymptomatic bacteriuria, gynecologic infections, sexually transmitted infections, and noninfectious conditions (positive predictive value for UTI around 50%) Performed By: #### u rinalysiswcul ####[facility] PATHOLOGY [id number] [place], #### C URINE ####[facility] Sqasnvlgi0553 [place], [place] U BACTERIA Few Normal [facility] Comment on above: Order Comment: A neg ative leukocyte esterase AND negative nitrite test or absence of pyuria (urine WBC count <= 5-10) make a UTI (urinary tract infection) very unlikely in a non-neutropenic adult (<=5% likelihood in many studies). A positive leukocyte esterase, nitrite and/or pyuria is a nonspecific result. This can be seen in conditions other than a UTI e.g. asymptomatic bacteriuria, gynecologic infections, sexually transmitted infections, and noninfectious conditions (positive predictive value for UTI around 50%) Performed By: #### u rinalysiswcul ####[facility] PATHOLOGY [id number] [place], #### C URINE ####[facility] Slfjlufxa2366 [place], [place] U BILI Negative Normal Negative [facility] Comment on above: Order Comment: A neg ative leukocyte esterase AND negative nitrite test or absence of pyuria (urine WBC count <= 5-10) make a UTI (urinary tract infection) very unlikely in a non-neutropenic adult (<=5% likelihood in many studies). A positive leukocyte esterase, nitrite and/or pyuria is a nonspecific result. This can be seen in conditions other than a UTI e.g. asymptomatic bacteriuria, gynecologic infections, sexually transmitted infections, and noninfectious conditions (positive predictive value for UTI around 50%) Performed By: #### u rinalysiswcul ####[facility] PATHOLOGY [id number] [place], #### C URINE ####[facility] Yezsxarcj4702 [place], [place] U BLOOD Negative Normal Negative [facility] Comment on above: Order Comment: A neg ative leukocyte esterase AND negative nitrite test or absence of pyuria (urine WBC count <= 5-10) make a UTI (urinary tract infection) very unlikely in a non-neutropenic adult (<=5% likelihood in many studies). A positive leukocyte esterase, nitrite and/or pyuria is a nonspecific result. This can be seen in conditions other than a UTI e.g. asymptomatic bacteriuria, gynecologic infections, sexually transmitted infections, and noninfectious conditions (positive predictive value for UTI around 50%) Performed By: #### u rinalysiswcul ####[facility] PATHOLOGY [id number] [place], #### C URINE ####[facility] Efuuxtbxt9272 [place], [place] U COLOR Yellow Normal Yellow [facility] Comment on above: Order Comment: A neg ative leukocyte esterase AND negative nitrite test or absence of pyuria (urine WBC count <= 5-10) make a UTI (urinary tract infection) very unlikely in a non-neutropenic adult (<=5% likelihood in many studies). A positive leukocyte esterase, nitrite and/or pyuria is a nonspecific result. This can be seen in conditions other than a UTI e.g. asymptomatic bacteriuria, gynecologic infections, sexually transmitted infections, and noninfectious conditions (positive predictive value for UTI around 50%) Performed By: #### u rinalysiswcul ####[facility] PATHOLOGY [id number] [place], #### C URINE ####[facility] Yxkboecor4167 [place], [place] U KETONE Negative Normal Negative [facility] Comment on above: Order Comment: A neg ative leukocyte esterase AND negative nitrite test or absence of pyuria (urine WBC count <= 5-10) make a UTI (urinary tract infection) very unlikely in a non-neutropenic adult (<=5% likelihood in many studies). A positive leukocyte esterase, nitrite and/or pyuria is a nonspecific result. This can be seen in conditions other than a UTI e.g. asymptomatic bacteriuria, gynecologic infections, sexually transmitted infections, and noninfectious conditions (positive predictive value for UTI around 50%) Performed By: #### u rinalysiswcul ####[facility] PATHOLOGY [id number] [place], #### C URINE ####[facility] Abmehafen2480 [place], [place] U LEUK Trace Abnormal Negative [facility] Comment on above: Order Comment: A neg ative leukocyte esterase AND negative nitrite test or absence of pyuria (urine WBC count <= 5-10) make a UTI (urinary tract infection) very unlikely in a non-neutropenic adult (<=5% likelihood in many studies). A positive leukocyte esterase, nitrite and/or pyuria is a nonspecific result. This can be seen in conditions other than a UTI e.g. asymptomatic bacteriuria, gynecologic infections, sexually transmitted infections, and noninfectious conditions (positive predictive value for UTI around 50%) Performed By: #### u rinalysiswcul ####[facility] PATHOLOGY [id number] [place], #### C URINE ####[facility] [address] [place], [place] [address] U MUCOUS Present Normal [facility] Comment on above: Order Comment: A neg ative leukocyte esterase AND negative nitrite test or absence of pyuria (urine WBC count <= 5-10) make a UTI (urinary tract infection) very unlikely in a non-neutropenic adult (<=5% likelihood in many studies). A positive leukocyte esterase, nitrite and/or pyuria is a nonspecific result. This can be seen in conditions other than a UTI e.g. asymptomatic bacteriuria, gynecologic infections, sexually transmitted infections, and noninfectious conditions (positive predictive value for UTI around 50%) Performed By: #### u rinalysiswcul ####[facility] PATHOLOGY [id number] [place], #### C URINE ####[facility] Guybvhpbh0597 [place], [place] U NITRITE Negative Normal Negative [facility] Comment on above: Order Comment: A neg ative leukocyte esterase AND negative nitrite test or absence of pyuria (urine WBC count <= 5-10) make a UTI (urinary tract infection) very unlikely in a non-neutropenic adult (<=5% likelihood in many studies). A positive leukocyte esterase, nitrite and/or pyuria is a nonspecific result. This can be seen in conditions other than a UTI e.g. asymptomatic bacteriuria, gynecologic infections, sexually transmitted infections, and noninfectious conditions (positive predictive value for UTI around 50%) Performed By: #### u rinalysiswcul ####[facility] PATHOLOGY [id number] [place], [place], #### C URINE ####[facility] Jtzd[address]aup[address] [place], [place] [address] U PH 6.0 Normal 5.0-8.0 [facility] Comment on above: Order Comment: A neg ative leukocyte esterase AND negative nitrite test or absence of pyuria (urine WBC count <= 5-10) make a UTI (urinary tract infection) very unlikely in a non-neutropenic adult (<=5% likelihood in many studies). A positive leukocyte esterase, nitrite and/or pyuria is a nonspecific result. This can be seen in conditions other than a UTI e.g. asymptomatic bacteriuria, gynecologic infections, sexually transmitted infections, and noninfectious conditions (positive predictive value for UTI around 50%) Performed By: #### u rinalysiswcul ####[facility] PATHOLOGY [id number] [place], #### C URINE ####[facility] [address] [place], [place] [id number] U PROTEIN Negative Normal Negative [facility] Comment on above: Order Comment: A neg ative leukocyte esterase AND negative nitrite test or absence of pyuria (urine WBC count <= 5-10) make a UTI (urinary tract infection) very unlikely in a non-neutropenic adult (<=5% likelihood in many studies). A positive leukocyte esterase, nitrite and/or pyuria is a nonspecific result. This can be seen in conditions other than a UTI e.g. asymptomatic bacteriuria, gynecologic infections, sexually transmitted infections, and noninfectious conditions (positive predictive value for UTI around 50%) Performed By: #### u rinalysiswcul ####[facility] PATHOLOGY [id number] [place], #### C URINE ####[facility] [address]zusubfoh[address] [place], [place] [id number] U RBC 0-2 Normal 0-2 [facility] Comment on above: Order Comment: A neg ative leukocyte esterase AND negative nitrite test or absence of pyuria (urine WBC count <= 5-10) make a UTI (urinary tract infection) very unlikely in a non-neutropenic adult (<=5% likelihood in many studies). A positive leukocyte esterase, nitrite and/or pyuria is a nonspecific result. This can be seen in conditions other than a UTI e.g. asymptomatic bacteriuria, gynecologic infections, sexually transmitted infections, and noninfectious conditions (positive predictive value for UTI around 50%) Performed By: #### u rinalysiswcul ####[facility] PATHOLOGY [id number] [place] [address], #### C URINE ####[facility] Bmcgbx[address] [place], [place] [id number] U SG 1.011 Normal 1.005-1.030 [facility] Comment on above: Order Comment: A neg ative leukocyte esterase AND negative nitrite test or absence of pyuria (urine WBC count <= 5-10) make a UTI (urinary tract infection) very unlikely in a non-neutropenic adult (<=5% likelihood in many studies). A positive leukocyte esterase, nitrite and/or pyuria is a nonspecific result. This can be seen in conditions other than a UTI e.g. asymptomatic bacteriuria, gynecologic infections, sexually transmitted infections, and noninfectious conditions (positive predictive value for UTI around 50%) Performed By: #### u rinalysiswcul ####[facility] PATHOLOGY [id number] [place], #### C URINE ####[facility] Epnoyakka7473 [place], [place] U UROBILI Negative Normal 0.1 - 1.0 [facility] Comment on above: Order Comment: A neg ative leukocyte esterase AND negative nitrite test or absence of pyuria (urine WBC count <= 5-10) make a UTI (urinary tract infection) very unlikely in a non-neutropenic adult (<=5% likelihood in many studies). A positive leukocyte esterase, nitrite and/or pyuria is a nonspecific result. This can be seen in conditions other than a UTI e.g. asymptomatic bacteriuria, gynecologic infections, sexually transmitted infections, and noninfectious conditions (positive predictive value for UTI around 50%) Performed By: #### u rinalysiswcul ####[facility] PATHOLOGY [id number] [place], #### C URINE ####[facility] [address]qiqdnzi[address] [place], [place] [id number] U WBC 0-2 Normal 0-2 [facility] Comment on above: Order Comment: A neg ative leukocyte esterase AND negative nitrite test or absence of pyuria (urine WBC count <= 5-10) make a UTI (urinary tract infection) very unlikely in a non-neutropenic adult (<=5% likelihood in many studies). A positive leukocyte esterase, nitrite and/or pyuria is a nonspecific result. This can be seen in conditions other than a UTI e.g. asymptomatic bacteriuria, gynecologic infections, sexually transmitted infections, and noninfectious conditions (positive predictive value for UTI around 50%) Performed By: #### u rinalysiswcul ####[facility] PATHOLOGY [id number] [place] [address], #### C URINE ####[address] URINE CULTUREon 03-16-2021 Bacteria identified Cx Nom (U) C URINE: No growth of greater than 1,000 CFU/ml Normal [facility] Comment on above: Performed By: #### u rinalysiswcul ####[facility] PATHOLOGY VWHCKHVOYX[address] [place] [address], #### C URINE ####[facility] [address]cv[address] [place], [place] [id number] VITAMIN B12 (CYANOCOBALAMIN) on 03-16-2021 Cobalamin (Vitamin B12) [Mass/Vol] 317 pg/mL Normal >300 [facility] Comment on above: Order Comment: <152 pg/mL - [id number] - 300 pg/mL- Insufficient>300 pg/mL - Sufficient Performed By: #### C H8, MG, TRIG, PHOS, VITB12 ####[facility] PATHOLOGY [id number] [place], XR CHEST 1 VIEW AP OR PAon XR CHEST 1 VIEW AP OR PA Normal [facility] BASIC METABOLIC PANELon 03-04 Anion gap [Moles/Vol] 12 mmol/L Normal 10-20 [facility] Comment on above: Performed By: #### C H8 ####[facility] PATHOLOGY [id number] [place], Calcium [Mass/Vol] 7.9 mg/dL Low 8.4-10.4 [facility] Comment on above: Performed By: #### C H8 ####[facility] PATHOLOGY [id number] [place], Chloride [Moles/Vol] 102 mmol/L Normal 97-111 [facility] Comment on above: Performed By: #### C H8 ####[facility] PATHOLOGY [id number] [place], CO2 [Moles/Vol] 25 mmol/L Normal 21-30 [facility] Comment on above: Performed By: #### C H8 ####[facility] PATHOLOGY [id number] [place], Creatinine [Mass/Vol] 1.15 mg/dL Normal 0.80-1.30 [facility] Comment on above: Performed By: #### C H8 ####[facility] PATHOLOGY [id number] [place], ESTIMATED GFR (CKD-EPI) 62 mL/min/1.73sqm Normal >=60 [facility] Comment on above: Performed By: #### C H8 ####S PATHOLOGY [id number] [place], Glucose [Mass/Vol] 113 mg/dL Normal 80-116 [facility] Comment on above: Performed By: #### C H8 ####S PATHOLOGY [id number] [place], Potassium [Moles/Vol] 3.7 mmol/L Normal 3.3-5.3 [facility] Comment on above: Performed By: #### C H8 ####[facility] [id number] [place], Sodium [Moles/Vol] 135 mmol/L Normal 135-148 [facility] Comment on above: Performed By: #### C H8 ####S PATHOLOGY [id number] [place], Urea nitrogen [Mass/Vol] 17 mg/dL Normal 8-[address] [facility] Comment on above: Performed By: #### C H8 ####S PATHOLOGY [id number] [place], Anion gap [Moles/Vol] 16 mmol/L Normal 10-20 [facility] Comment on above: Performed By: #### P HOS, MG, CH8 ####S PATHOLOGY [id number] [place], Calcium [Mass/Vol] 7.9 mg/dL Low 8.4-10.4 [facility] Comment on above: Performed By: #### P HOS, MG, CH8 ####S PATHOLOGY [id number] [place], Chloride [Moles/Vol] 103 mmol/L Normal 97-[address] [facility] Comment on above: Performed By: #### P HOS, MG, CH8 ####S PATHOLOGY [id number] [place], CO2 [Moles/Vol] 23 mmol/L Normal 21-[address] [facility] Comment on above: Performed By: #### P HOS, MG, CH8 ####[facility] [id number] [place], Creatinine [Mass/Vol] 1.12 mg/dL Normal 0.80-1.30 [facility] Comment on above: Performed By: #### P HOS, MG, CH8 ####[facility] [id number] [place], ESTIMATED GFR (CKD-EPI) 64 mL/min/1.73sqm Normal >=60 [facility] Comment on above: Performed By: #### P HOS, MG, CH8 ####[facility] [id number] [place], Glucose [Mass/Vol] 117 mg/dL High 80-116 [facility] Comment on above: Performed By: #### P HOS, MG, CH8 ####S PATHOLOGY [id number] [place], Potassium [Moles/Vol] 3.4 mmol/L Normal 3.3-5.3 [facility] Comment on above: Performed By: #### P HOS, MG, CH8 ####S PATHOLOGY [id number] [place], Sodium [Moles/Vol] 139 mmol/L Normal 135-148 [facility] Comment on above: Performed By: #### P HOS, MG, CH8 ####[facility] PATHOLOGY [id number] [place], Urea nitrogen [Mass/Vol] 19 mg/dL Normal 8-22 [facility] Comment on above: Performed By: #### P HOS, MG, CH8 ####[facility] PATHOLOGY [id number] [place], CBC WITH DIFFERENTIALon 03-04 Basophils (Bld) [#/Vol] 0.06 10*3/uL Normal 0.00-0.20 [facility] Comment on above: Performed By: #### C BCDSAT ####[facility] PATHOLOGY [id number] [place], Basophils/100 WBC (Bld) 0.5 % Normal <=1.9 [facility] Comment on above: Performed By: #### C BCDSAT ####[facility] PATHOLOGY [id number] [place], Eosinophils (Bld) [#/Vol] 0.19 10*3/uL Normal 0.00-0.70 [facility] Comment on above: Performed By: #### C BCDSAT ####S PATHOLOGY [id number] [place], Eosinophils/100 WBC (Bld) 1.7 % Normal 0.1-4.0 [facility] Comment on above: Performed By: #### C HUMERADSAT ####[facility] [facility] [id number] [place], [place], Erythrocyte distribution width (RBC) [Ratio] 13.7 % Normal 11.5-14.[address] [facility] Comment on above: Performed By: #### C HUMERADSAT ####[facility] PATHOLOGY [id number] [place] [address], Hematocrit (Bld) [Volume fraction] 36.2 % Low 41.0-53.0 [facility] Comment on above: Performed By: #### C VERAAT ####[facility] PATHOLOGY [id number] [place] [address], Hemoglobin (Bld) [Mass/Vol] 12.0 g/dL Low 13.9-16.[address] [facility] Comment on above: Performed By: #### C VERAAT ####[facility] PATHOLOGY [id number] [place] [address], Lymphocytes (Bld) [#/Vol] 1.10 10*3/uL Normal 1.00-4.[address] [facility] Comment on above: Performed By: #### C VERAAT ####[facility] PATHOLOGY [id number] [place] [address], Lymphocytes/100 WBC (Bld) 9.9 % Low 24.0-44.[address] [facility] Comment on above: Performed By: #### C BCDSAT ####S PATHOLOGY [id number] [place] [address], MCH (RBC) [Entitic mass] 30.5 pg Normal 26.0-34.0 [facility] Comment on above: Performed By: #### C VERAAT ####S PATHOLOGY [id number] [place] [address], MCHC (RBC) [Mass/Vol] 33.3 g/dL Normal 32.0-35.[address] [facility] Comment on above: Performed By: #### C BCMARIAMAAT ####[facility] PATHOLOGY [id number] [place] [address] [place], MCV (RBC) [Entitic vol] 92 fL Normal 80-100 [facility] Comment on above: Performed By: #### C BCDSAT ####S PATHOLOGY [id number] [place], MONOCYTE DISTRIBUTION WIDTH Normal [facility] Comment on above: Performed By: #### C HUEMRADSAT ####S PATHOLOGY [id number] [place], Monocytes (Bld) [#/Vol] 1.40 10*3/uL High 0.20-1.00 [facility] Comment on above: Performed By: #### C VERAAT ####[facility] PATHOLOGY [id number] [place] [address], Monocytes/100 WBC (Bld) 12.7 % High 2.0-11.[address] [facility] Comment on above: Performed By: #### C VERAAT ####[facility] PATHOLOGY [id number] [place] [address], Neutrophils (Bld) [#/Vol] 8.35 10*3/uL High 1.50-8.00 [facility] Comment on above: Performed By: #### C VEARAT ####[facility] PATHOLOGY [id number] [place] [address], Neutrophils/100 WBC (Bld) 75.3 % Normal 31.0-76.0 [facility] Comment on above: Performed By: #### C BCMARIAMAAT ####S PATHOLOGY [id number] [place], Platelet mean volume (Bld) [Entitic vol] 9.3 fL Normal 7.5-11.2 [facility] Comment on above: Performed By: #### C BCMARIAMAAT ####S PATHOLOGY [id number] [place], Platelets (Bld) [#/Vol] 182 10*3/uL Normal 150-[address] [facility] Comment on above: Performed By: #### Deborah BCMARIAMAAT ####S PATHOLOGY [id number] [place] [address], RBC (Bld) [#/Vol] 3.95 10*6/uL Low 4.50-5.90 [facility] Comment on above: Performed By: #### C BCDSAT ####[facility] PATHOLOGY [id number] [place], WBC (Bld) [#/Vol] 11.1 10*3/uL Normal 4.5-11.5 [facility] Comment on above: Performed By: #### C BCDSAT ####[facility] PATHOLOGY [id number] [place] [address], Basophils (Bld) [#/Vol] 0.05 10*3/uL Normal 0.00-0.20 [facility] Comment on above: Performed By: #### C BCDSAT ####[facility] PATHOLOGY [id number] [place] [address], Basophils/100 WBC (Bld) 0.5 % Normal <=1.9 [facility] Comment on above: Performed By: #### C BCDSAT ####[facility] PATHOLOGY [id number] [place] [address], Eosinophils (Bld) [#/Vol] 0.20 10*3/uL Normal 0.00-0.70 [facility] Comment on above: Performed By: #### C BCDSAT ####[facility] PATHOLOGY [id number] [place] [address], Eosinophils/100 WBC (Bld) 1.9 % Normal 0.1-4.0 [facility] Comment on above: Performed By: #### C BCDSAT ####[facility] PATHOLOGY [id number] [place], Erythrocyte distribution width (RBC) [Ratio] 14.0 % Normal 11.5-14.5 [facility] Comment on above: Performed By: #### C BCDSAT ####[facility] PATHOLOGY [id number] [place], Hematocrit (Bld) [Volume fraction] 32.6 % Low 41.0-53.0 [facility] Comment on above: Performed By: #### C BCDSAT ####[facility] PATHOLOGY [id number] [place], Hemoglobin (Bld) [Mass/Vol] 11.0 g/dL Low 13.9-16.3 [facility] Comment on above: Performed By: #### C BCDSAT ####[facility] PATHOLOGY [id number] [place], Lymphocytes (Bld) [#/Vol] 1.29 10*3/uL Normal 1.00-4.80 [facility] Comment on above: Performed By: #### C BCDSAT ####[facility] PATHOLOGY [id number] [place] [address], Lymphocytes/100 WBC (Bld) 12.3 % Low 24.0-44.0 [facility] Comment on above: Performed By: #### C BCDSAT ####[facility] PATHOLOGY [id number] [place] [address], MCH (RBC) [Entitic mass] 30.6 pg Normal 26.0-34.0 [facility] Comment on above: Performed By: #### C BCDSAT ####[facility] PATHOLOGY [id number] [place] [address], MCHC (RBC) [Mass/Vol] 33.8 g/dL Normal 32.0-35.9 [facility] Comment on above: Performed By: #### C BCDSAT ####[facility] PATHOLOGY OANAAMPWHN[address] [place] [address], MCV (RBC) [Entitic vol] 91 fL Normal 80-100 [facility] Comment on above: Performed By: #### C BCDSAT ####[facility] PATHOLOGY [id number] [place], MONOCYTE DISTRIBUTION WIDTH Normal [facility] Comment on above: Performed By: #### C BCDSAT ####[facility] PATHOLOGY [id number] [place], Monocytes (Bld) [#/Vol] 1.12 10*3/uL High 0.20-1.00 [facility] Comment on above: Performed By: #### C BCDSAT ####S PATHOLOGY [id number] [place], Monocytes/100 WBC (Bld) 10.8 % Normal 2.0-11.0 [facility] Comment on above: Performed By: #### C BCDSAT ####[facility] PATHOLOGY [id number] [place], Neutrophils (Bld) [#/Vol] 7.79 10*3/uL Normal 1.50-8.[address] [facility] Comment on above: Performed By: #### C BCDSAT ####[facility] PATHOLOGY [id number] [place], Neutrophils/100 WBC (Bld) 74.5 % Normal 31.0-76.[address] [facility] Comment on above: Performed By: #### C BCDSAT ####[facility] PATHOLOGY [id number] [place], Platelet mean volume (Bld) [Entitic vol] 9.1 fL Normal 7.5-11.[address] [facility] Comment on above: Performed By: #### C BCDSAT ####[facility] PATHOLOGY [id number] [place] [address], Platelets (Bld) [#/Vol] 168 10*3/uL Normal 150-[address] [facility] Comment on above: Performed By: #### C BCDSAT ####S PATHOLOGY [id number] [place], RBC (Bld) [#/Vol] 3.61 10*6/uL Low 4.50-5.[address] [facility] Comment on above: Performed By: #### C BCDSAT ####S PATHOLOGY [id number] [place], WBC (Bld) [#/Vol] 10.4 10*3/uL Normal 4.5-11.[address] [facility] Comment on above: Performed By: #### C BCDSAT ####S PATHOLOGY [id number] [place], Care Plan Noteon 03-15-2021 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 Interface Message Text Normal [facility] Consultson 03-15-2021 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 Interface Message Text Normal [facility] GLUCOSE, FINGERSTICK-IN OFFI CEon 03-15-2021 Glucose [Mass/Vol] 98 mg/dL Normal 80-116 [facility] Comment on above: Result Comment: Salvador jovel RN, APN, MD Performed By: #### 8 2948 ####NURSING GLUCOSE [id number] [place], [address] Glucose [Mass/Vol] 106 mg/dL Normal 80-116 [facility] Comment on above: Result Comment: Salvador jovel RN, APN, MD Performed By: #### 8 2948 ####NURSING GLUCOSE [id number] [place], [address] Glucose [Mass/Vol] 114 mg/dL Normal 80-116 [facility] Comment on above: Result Comment: Salvador jovel RN, APN, MD Performed By: #### 8 2948 ####NURSING GLUCOSE [id number] [place], [address] Glucose [Mass/Vol] 90 mg/dL Normal 80-116 [facility] Comment on above: Result Comment: Salvador jovel RN, APN, MD Performed By: #### 8 2948 ####NURSING GLUCOSE [id number] [place], [address] Glucose [Mass/Vol] 97 mg/dL Normal 80-116 [facility] Comment on above: Performed By: #### 8 9621 ####NURSING GLUCOSE [id number] [place], [address] Glucose [Mass/Vol] 95 mg/dL Normal 80-116 [facility] Comment on above: Performed By: #### 8 3435 ####NURSING GLUCOSE [id number] [place], [address] MAGNESIUMon 03-15-2021 Magnesium [Mass/Vol] 2.2 mg/dL Normal 1.6-2.8 [facility] Comment on above: Performed By: #### P HOS, MG, CH8 ####[facility] [id number] [place], OP Noteon 03-15-2021 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 Interface Message Text Normal [facility] PARTIAL THROMBOPLASTIN TIMEo n 03-15-2021 aPTT Coag (Bld) [Time] 66 s High 25-37 [facility] Comment on above: Performed By: #### A PTT ####S PATHOLOGY [id number] [place], aPTT Coag (Bld) [Time] 61 s High 25-37 [facility] Comment on above: Performed By: #### A PTT ####S PATHOLOGY [id number] [place], PHOSPHORUSon 03-15-2021 Phosphate [Mass/Vol] 2.5 mg/dL Normal 2.3-4.2 [facility] Comment on above: Performed By: #### P HOS, MG, CH8 ####S PATHOLOGY [id number] [place], Progress Noteson 03-15-2021 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 Interface Message Text Normal [facility] 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 Interface Message Text Normal [facility] TYPE AND SCREENon 03-15-2021 ABO and Rh group Nom (Bld) Blood group AB Rh(D) positive Normal [facility] Comment on above: Performed By: #### T S ####[facility] [id number] [place], ABSC INT Negative Normal [facility] Comment on above: Performed By: #### T S ####[facility] [id number] [place], BASIC METABOLIC PANELon 03-04 Anion gap [Moles/Vol] 12 mmol/L Normal 10-20 [facility] Comment on above: Performed By: #### C H8, PHOS, MG ####[facility] [id number] [place], Calcium [Mass/Vol] 7.8 mg/dL Low 8.4-10.4 [facility] Comment on above: Performed By: #### C H8, PHOS, MG ####[facility] [id number] [place], Chloride [Moles/Vol] 102 mmol/L Normal 97-111 [facility] Comment on above: Performed By: ###LISSETH Naidu MG ####[facility] [id number] [place], CO2 [Moles/Vol] 26 mmol/L Normal 21-30 [facility] Comment on above: Performed By: #### LISSETH Méndez MG ####[facility] PATH[facility] [id number] [place], Creatinine [Mass/Vol] 1.19 mg/dL Normal 0.80-1.30 [facility] Comment on above: Performed By: #### LISSETH Méndez MG ####[facility] PATH[facility] [id number] [place], ESTIMATED GFR (CKD-EPI) 59 mL/min/1.73sqm Low >=60 [facility] Comment on above: Performed By: #### LISSETH Méndez MG ####[facility] PATH[facility] [id number] [place], Glucose [Mass/Vol] 166 mg/dL High 80-116 [facility] Comment on above: Performed By: #### LISSETH Méndez MG ####[facility] [id number] [place], Potassium [Moles/Vol] 3.7 mmol/L Normal 3.3-5.3 [facility] Comment on above: Performed By: #### LISSETH Méndez MG ####[facility] [id number] [place], Sodium [Moles/Vol] 136 mmol/L Normal 135-148 [facility] Comment on above: Performed By: #### LISSETH Méndez MG ####[facility] [id number] [place], Urea nitrogen [Mass/Vol] 21 mg/dL Normal 8-22 [facility] Comment on above: Performed By: #### LISSETH Méndez MG ####[facility] [id number] [place], CBC WITH DIFFERENTIALon 03-04 Basophils (Bld) [#/Vol] 0.04 10*3/uL Normal 0.00-0.20 [facility] Comment on above: Performed By: #### C BCDSAT ####[facility] PATHOLOGY [id number] [place], Basophils/100 WBC (Bld) 0.3 % Normal <=1.9 [facility] Comment on above: Performed By: #### C BCDSAT ####[facility] PATHOLOGY [id number] [place], Eosinophils (Bld) [#/Vol] 0.20 10*3/uL Normal 0.00-0.[address] [facility] Comment on above: Performed By: #### C BCDSAT ####[facility] PATHOLOGY TBTRECLHGN[address] [place] [address], Eosinophils/100 WBC (Bld) 1.6 % Normal 0.1-4.[address] [facility] Comment on above: Performed By: #### C BCDSAT ####[facility] PATHOLOGY [id number] [place], Erythrocyte distribution width (RBC) [Ratio] 14.0 % Normal 11.5-14.[address] [facility] Comment on above: Performed By: #### C BCDSAT ####[facility] PATHOLOGY [id number] [place], Hematocrit (Bld) [Volume fraction] 33.8 % Low 41.0-53.0 [facility] Comment on above: Performed By: #### C BCDSAT ####[facility] PATHOLOGY [id number] [place], Hemoglobin (Bld) [Mass/Vol] 11.0 g/dL Low 13.9-16.[address] [facility] Comment on above: Performed By: #### C BCDSAT ####[facility] PATHOLOGY [id number] [place], Lymphocytes (Bld) [#/Vol] 1.36 10*3/uL Normal 1.00-4.80 [facility] Comment on above: Performed By: #### C BCDSAT ####[facility] PATHOLOGY [id number] [place], Lymphocytes/100 WBC (Bld) 10.9 % Low 24.0-44.0 [facility] Comment on above: Performed By: #### C BCDSAT ####[facility] PATHOLOGY [id number] [place], MCH (RBC) [Entitic mass] 29.6 pg Normal 26.0-34.0 [facility] Comment on above: Performed By: #### C BCDSAT ####[facility] PATHOLOGY [id number] [place], MCHC (RBC) [Mass/Vol] 32.5 g/dL Normal 32.0-35.9 [facility] Comment on above: Performed By: #### C BCDSAT ####[facility] PATHOLOGY DIMAXMVLSO[address] [place] [address], MCV (RBC) [Entitic vol] 91 fL Normal 80-100 [facility] Comment on above: Performed By: #### C BCDSAT ####[facility] PATHOLOGY [id number] [place] [address], MONOCYTE DISTRIBUTION WIDTH Normal [facility] Comment on above: Performed By: #### C BCDSAT ####[facility] PATHOLOGY [id number] [place], Monocytes (Bld) [#/Vol] 1.50 10*3/uL High 0.20-1.00 [facility] Comment on above: Performed By: #### C BCDSAT ####[facility] PATHOLOGY [id number] [place], Monocytes/100 WBC (Bld) 12.0 % High 2.0-11.0 [facility] Comment on above: Performed By: #### C BCDSAT ####[facility] PATHOLOGY [id number] [place], Neutrophils (Bld) [#/Vol] 9.37 10*3/uL High 1.50-8.00 [facility] Comment on above: Performed By: #### Deborah BCDSAT ####[facility] PATHOLOGY [id number] [place], Neutrophils/100 WBC (Bld) 75.2 % Normal 31.0-76.0 [facility] Comment on above: Performed By: #### Deborah BCDSAT ####[facility] PATHOLOGY [id number] [place], Platelet mean volume (Bld) [Entitic vol] 8.8 fL Normal 7.5-11.2 [facility] Comment on above: Performed By: #### Deborah BCDSAT ####[facility] PATHOLOGY [id number] [place] [address], Platelets (Bld) [#/Vol] 172 10*3/uL Normal 150-400 [facility] Comment on above: Performed By: #### Deborah BCDSAT ####[facility] PATHOLOGY [id number] [place] [address], RBC (Bld) [#/Vol] 3.72 10*6/uL Low 4.50-5.90 [facility] Comment on above: Performed By: #### Deborah BCDSAT ####[facility] PATHOLOGY [id number] [place], WBC (Bld) [#/Vol] 12.5 10*3/uL High 4.5-11.[address] [facility] Comment on above: Performed By: #### Deborah BCDSAT ####[facility] PATHOLOGY [id number] [place] [address], Basophils (Bld) [#/Vol] 0.02 10*3/uL Normal 0.00-0.20 [facility] Comment on above: Performed By: #### Deborah BCDSAT ####[facility] PATHOLOGY [id number] [place] [address], #### HB A1C ####[facility] [address] [place], [address] Basophils/100 WBC (Bld) 0.1 % Normal <=1.9 [facility] Comment on above: Performed By: #### C BCDSAT ####[facility] PATHOLOGY [id number] [place] [address], #### HB A1C ####[facility] PATH[facility] [address] [place], Eosinophils (Bld) [#/Vol] 0.12 10*3/uL Normal 0.00-0.70 [facility] Comment on above: Performed By: #### C BCDSAT ####[facility] PATHOLOGY [id number] [place] [address], #### HB A1C ####[facility] PATH[facility] [address] [place], Eosinophils/100 WBC (Bld) 0.8 % Normal 0.1-4.0 [facility] Comment on above: Performed By: #### C BCDSAT ####[facility] PATHOLOGY [id number] [place] [address], #### HB A1C ####[facility] PATH[facility] [address] [place] [address], Erythrocyte distribution width (RBC) [Ratio] 13.9 % Normal 11.5-14.5 [facility] Comment on above: Performed By: #### C BCDSAT ####[facility] PATHOLOGY [id number] [place] [address], #### HB A1C ####[facility] PATH[facility] [address] [place] [address], Hematocrit (Bld) [Volume fraction] 34.2 % Low 41.0-53.0 [facility] Comment on above: Performed By: #### C BCDSAT ####[facility] PATHOLOGY [id number] [place] [address], #### HB A1C ####[facility] [address] [place], Hemoglobin (Bld) [Mass/Vol] 11.4 g/dL Low 13.9-16.3 [facility] Comment on above: Performed By: #### C BCDSAT ####[facility] PATHOLOGY [id number] [place] [address], #### HB A1C ####[facility] PATH[facility] [address] [place], Lymphocytes (Bld) [#/Vol] 1.49 10*3/uL Normal 1.00-4.80 [facility] Comment on above: Performed By: #### C BCDSAT ####[facility] PATHOLOGY [id number] [place] [address], #### HB A1C ####[facility] [address] [place], Lymphocytes/100 WBC (Bld) 9.8 % Low 24.0-44.0 [facility] Comment on above: Performed By: #### C BCDSAT ####[facility] PATHOLOGY [id number] [place] [address], #### HB A1C ####[facility] [address] [place] [address], MCH (RBC) [Entitic mass] 30.1 pg Normal 26.0-34.0 [facility] Comment on above: Performed By: #### C BCDSAT ####[facility] PATHOLOGY [id number] [place] [address], #### HB A1C ####[facility] [address] [place] [address], MCHC (RBC) [Mass/Vol] 33.2 g/dL Normal 32.0-35.9 [facility] Comment on above: Performed By: #### C BCDSAT ####[facility] PATHOLOGY [id number] [place] [address], #### HB A1C ####[facility] [address] [place] [address], MCV (RBC) [Entitic vol] 91 fL Normal 80-100 [facility] Comment on above: Performed By: #### C BCDSAT ####[facility] PATHOLOGY [id number] [place] [address], #### HB A1C ####[facility] [address] [place], [address] MONOCYTE DISTRIBUTION WIDTH Normal [facility] Comment on above: Performed By: #### C BCDSAT ####[facility] PATHOLOGY [id number] [place] [address], #### HB A1C ####[facility] [address] [place], [address] Monocytes (Bld) [#/Vol] 1.66 10*3/uL High 0.20-1.00 [facility] Comment on above: Performed By: #### C BCDSAT ####[facility] PATHOLOGY [id number] [place] [address], #### HB A1C ####[facility] [address] [place], [address] Monocytes/100 WBC (Bld) 11.0 % Normal 2.0-11.0 [facility] Comment on above: Performed By: #### C BCDSAT ####[facility] PATHOLOGY [id number] [place] [address], #### HB A1C ####[facility] [address] [place], [address] Neutrophils (Bld) [#/Vol] 11.85 10*3/uL High 1.50-8.00 [facility] Comment on above: Performed By: #### C BCDSAT ####[facility] PATHOLOGY [id number] [place] [address], #### HB A1C ####[facility] [address] [place], [address] Neutrophils/100 WBC (Bld) 78.3 % High 31.0-76.0 [facility] Comment on above: Performed By: #### C BCDSAT ####[facility] PATHOLOGY [id number] [place] [address], #### HB A1C ####[facility] PATH[facility] LABORATORY [address] [place], [address] Platelet mean volume (Bld) [Entitic vol] 8.9 fL Normal 7.5-11.2 [facility] Comment on above: Performed By: #### C BCDSAT ####[facility] PATHOLOGY [id number] [place] [address], #### HB A1C ####[facility] PATH[facility] LABORATORY [address] [place], [address] Platelets (Bld) [#/Vol] 178 10*3/uL Normal 150-400 [facility] Comment on above: Performed By: #### C BCDSAT ####[facility] PATHOLOGY [id number] [place] [address], #### HB A1C ####[facility] PATH[facility] LABORATORY [address] [place], [address] RBC (Bld) [#/Vol] 3.76 10*6/uL Low 4.50-5.90 [facility] Comment on above: Performed By: #### C BCDSAT ####[facility] PATHOLOGY [id number] [place] [address], #### HB A1C ####[facility] PATH[facility] LABORATORY [address] [place], [address] WBC (Bld) [#/Vol] 15.1 10*3/uL High 4.5-11.5 [facility] Comment on above: Performed By: #### C BCDSAT ####[facility] PATHOLOGY [id number] [place] [address], #### HB A1C ####[facility] PATH[facility] LABOR[facility] [address] [place], [address] Basophils (Bld) [#/Vol] 0.09 10*3/uL Normal 0.00-0.20 [facility] Comment on above: Performed By: #### C BCDSAT ####[facility] PATHOLOGY [id number] [place] [address], Basophils/100 WBC (Bld) 0.5 % Normal <=1.9 [facility] Comment on above: Performed By: #### C BCDSAT ####[facility] PATHOLOGY [id number] [place] [address], Eosinophils (Bld) [#/Vol] 0.07 10*3/uL Normal 0.00-0.70 [facility] Comment on above: Performed By: #### C VERAAT ####[facility] PATHOLOGY [id number] [place], [place], Eosinophils/100 WBC (Bld) 0.4 % Normal 0.1-4.0 [facility] Comment on above: Performed By: #### C VERAAT ####[facility] PATHOLOGY [id number] [place] [address], Erythrocyte distribution width (RBC) [Ratio] 14.1 % Normal 11.5-14.5 [facility] Comment on above: Performed By: #### C VERAAT ####[facility] PATHOLOGY [id number] [place] [address], Hematocrit (Bld) [Volume fraction] 36.9 % Low 41.0-53.0 [facility] Comment on above: Performed By: #### C VERAAT ####[facility] PATHOLOGY [id number] [place] [address], Hemoglobin (Bld) [Mass/Vol] 11.9 g/dL Low 13.9-16.[address] [facility] Comment on above: Performed By: #### Deborah GAMEZAT ####[facility] PATHOLOGY [id number] [place] [address], Lymphocytes (Bld) [#/Vol] 1.47 10*3/uL Normal 1.00-4.[address] [facility] Comment on above: Performed By: #### C VERAAT ####[facility] PATHOLOGY [id number] [place] [address], Lymphocytes/100 WBC (Bld) 7.7 % Low 24.0-44.[address] [facility] Comment on above: Performed By: #### C VERAAT ####[facility] PATHOLOGY [id number] [place] [address], MCH (RBC) [Entitic mass] 29.4 pg Normal 26.0-34.[address] [facility] Comment on above: Performed By: #### C VERAAT ####[facility] PATHOLOGY [id number] [place] [address], MCHC (RBC) [Mass/Vol] 32.2 g/dL Normal 32.0-35.9 [facility] Comment on above: Performed By: #### Deborah GAMEZAT ####[facility] PATHOLOGY [id number] [place], [place], MCV (RBC) [Entitic vol] 91 fL Normal 80-100 [facility] Comment on above: Performed By: #### C VERAAT ####[facility] PATHOLOGY [id number] [place] [address], MONOCYTE DISTRIBUTION WIDTH Normal [facility] Comment on above: Performed By: #### C VERAAT ####[facility] PATHOLOGY [id number] [place], Monocytes (Bld) [#/Vol] 2.41 10*3/uL High 0.20-1.00 [facility] Comment on above: Performed By: #### Deborah GAMEZAT ####[facility] PATHOLOGY [id number] [place] [address], Monocytes/100 WBC (Bld) 12.6 % High 2.0-11.0 [facility] Comment on above: Performed By: #### Deborah GAMEZAT ####[facility] PATHOLOGY [id number] [place] [address], Neutrophils (Bld) [#/Vol] 15.16 10*3/uL High 1.50-8.00 [facility] Comment on above: Performed By: #### Deborah GAMEZAT ####[facility] PATHOLOGY [id number] [place] [address], Neutrophils/100 WBC (Bld) 79.0 % High 31.0-76.0 [facility] Comment on above: Performed By: #### Deborah GAMEZAT ####S PATHOLOGY [id number] [place], [place], Platelet mean volume (Bld) [Entitic vol] 8.9 fL Normal 7.5-11.2 [facility] Comment on above: Performed By: #### Deborah GAMEZAT ####[facility] PATHOLOGY [id number] [place] [address] [place], Platelets (Bld) [#/Vol] 187 10*3/uL Normal 150-400 [facility] Comment on above: Performed By: #### C VERAAT ####[facility] [id number] [place], RBC (Bld) [#/Vol] 4.03 10*6/uL Low 4.50-5.90 [facility] Comment on above: Performed By: #### C VERAAT ####[facility] [id number] [place], WBC (Bld) [#/Vol] 19.2 10*3/uL High 4.5-11.5 [facility] Comment on above: Performed By: #### C VERAAT ####[facility] [id number] [place], [place], Care Plan Noteon 03-14-2021 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 Interface Message Text Normal [facility] GLUCOSE, FINGERSTICK-IN OFFI CEon 03-14-2021 Glucose [Mass/Vol] 123 mg/dL High 80-116 [facility] Comment on above: Performed By: #### 8 2948 ####NURSING GLUCOSE [id number] [place], [address] Glucose [Mass/Vol] 132 mg/dL High 80-116 [facility] Comment on above: Result Comment: Foll ow Protocol Performed By: #### 8 2948 ####NURSING GLUCOSE [id number] [place], [address] Glucose [Mass/Vol] 200 mg/dL High 80-116 [facility] Comment on above: Result Comment: Salvador jovel RN, APN, MD Performed By: #### 8 2948 ####NURSING GLUCOSE [id number] [place], [address] HEMOGLOBIN A1Con 03-14-2021 Glucose [Mass/Vol] 137 mg/dL Normal [facility] Comment on above: Order Comment: HbA1c of 5.7-6.4% have increased risk for diabetes and CV(Source :ADA 2014 Standard of Medical Care in Diabetes) Performed By: #### C BCDSAT ####[facility] [id number] [place], [place], #### HB A1C ####[facility] PATH[facility] LABORATORY [address] [place], [address] HbA1c (Bld) [Mass fraction] 6.4 % High 4.0-5.6 [facility] Comment on above: Order Comment: HbA1c of 5.7-6.4% have increased risk for diabetes and CV(Source :ADA 2014 Standard of Medical Care in Diabetes) Performed By: #### C BCDSAT ####[facility] PATHOLOGY [id number] [place], [place], #### HB A1C ####[facility] PATH[facility] LABORATORY [address] [place], [address] MAGNESIUMon 03-14-2021 Magnesium [Mass/Vol] 2.2 mg/dL Normal 1.6-2.[address] [facility] Comment on above: Performed By: #### LISSETH Méndez MG ####[facility] PATHOLOGY [id number] [place] [address], PARTIAL THROMBOPLASTIN TIMEo n 03-14-2021 aPTT Coag (Bld) [Time] 49 s High 25-[address] [facility] Comment on above: Performed By: #### A PTT ####[facility] PATHOLOGY [id number] [place] [address], aPTT Coag (Bld) [Time] 88 s High 25-37 [facility] Comment on above: Performed By: #### A PTT, PT ####[facility] PATHOLOGY [id number] [place] [address], PHOSPHORUSon 03-14-2021 Phosphate [Mass/Vol] 1.8 mg/dL Low 2.3-4.2 [facility] Comment on above: Performed By: #### LISSETH Méndez, MG ####[facility] PATHOLOGY [id number] [place], PROTHROMBIN TIME AND INRon 1 INR Coag (PPP) [Relative time] 1.80 {INR} High 0.90-1.10 [facility] Comment on above: Performed By: #### A PTT, PT ####[facility] [id number] [place], PT Coag (PPP) [Time] 20.2 s High 9.7-12.9 [facility] Comment on above: Performed By: #### A PTT, PT ####[facility] [id number] [place], [place], Procedureson 03-14-2021 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 Interface Message Text Normal [facility] Progress Noteson 03-14-2021 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 Interface Message Text Normal [facility] 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 Interface Message Text Normal [facility] 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 Interface Message Text Normal [facility] 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 Interface Message Text Normal [facility] 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 Interface Message Text Normal [facility] 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 Interface Message Text Normal [facility] Anesthesia Postprocedure Mary Ann luationon 03-13-2021 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 Interface Message Text Normal [facility] Anesthesia Transfer Of Careo n 03-13-2021 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 Interface Message Text Normal [facility] BASIC METABOLIC PANELon 10- Anion gap [Moles/Vol] 13 mmol/L Normal 10-20 [facility] Comment on above: Performed By: #### YOEL Garcia, HEPATIC ####S PATHOLOGY [id number] [place], Calcium [Mass/Vol] 8.2 mg/dL Low 8.4-10.4 [facility] Comment on above: Performed By: #### YOEL Garcia, HEPATIC ####S PATHOLOGY [id number] [place], Chloride [Moles/Vol] 100 mmol/L Normal 97-111 [facility] Comment on above: Performed By: #### YOEL Garcia, HEPATIC ####[facility] [id number] [place], CO2 [Moles/Vol] 25 mmol/L Normal 21-30 [facility] Comment on above: Performed By: #### YOEL Garcia, HEPATIC ####[facility] [id number] [place], Creatinine [Mass/Vol] 1.13 mg/dL Normal 0.80-1.30 [facility] Comment on above: Performed By: #### YOEL Garcia, HEPATIC ####S PATHOLOGY [id number] [place], ESTIMATED GFR (CKD-EPI) 63 mL/min/1.73sqm Normal >=60 [facility] Comment on above: Performed By: #### YOEL Garcia, HEPATIC ####S PATHOLOGY [id number] [place], Glucose [Mass/Vol] 265 mg/dL High 80-116 [facility] Comment on above: Performed By: #### YOEL Garcia, HEPATIC ####S PATHOLOGY [id number] [place], Potassium [Moles/Vol] 4.2 mmol/L Normal 3.3-5.3 [facility] Comment on above: Performed By: #### YOEL Garcia, HEPATIC ####S PATHOLOGY [id number] [place], Sodium [Moles/Vol] 134 mmol/L Low 135-148 [facility] Comment on above: Performed By: #### YOEL Garcia, HEPATIC ####S PATHOLOGY [id number] [place], Urea nitrogen [Mass/Vol] 18 mg/dL Normal 8-22 [facility] Comment on above: Performed By: #### YOEL Garcia, HEPATIC ####[facility] [id number] [place], Anion gap [Moles/Vol] 16 mmol/L Normal 10-20 [facility] Comment on above: Performed By: #### Deborah Jeronimo, HEPATIC, MG, TROP I ####[facility] [id number] [place], Calcium [Mass/Vol] 8.8 mg/dL Normal 8.4-10.4 [facility] Comment on above: Performed By: #### C H8, HEPATIC, MG, TROP I ####[facility] [id number] [place], Chloride [Moles/Vol] 102 mmol/L Normal 97-111 [facility] Comment on above: Performed By: #### C H8, HEPATIC, MG, TROP I ####[facility] [id number] [place], CO2 [Moles/Vol] 23 mmol/L Normal 21-30 [facility] Comment on above: Performed By: #### C H8, HEPATIC, MG, TROP I ####[facility] [id number] [place], Creatinine [Mass/Vol] 1.03 mg/dL Normal 0.80-1.30 [facility] Comment on above: Performed By: #### C H8, HEPATIC, MG, TROP I ####S PATHOLOGY [id number] [place], ESTIMATED GFR (CKD-EPI) 71 mL/min/1.73sqm Normal >=60 [facility] Comment on above: Performed By: #### C H8, HEPATIC, MG, TROP I ####S PATHOLOGY [id number] [place], Glucose [Mass/Vol] 192 mg/dL High 80-116 [facility] Comment on above: Performed By: #### C H8, HEPATIC, MG, TROP I ####S PATHOLOGY [id number] [place], Potassium [Moles/Vol] 4.1 mmol/L Normal 3.3-5.3 [facility] Comment on above: Performed By: #### C H8, HEPATIC, MG, TROP I ####[facility] [id number] [place], Sodium [Moles/Vol] 137 mmol/L Normal 135-148 [facility] Comment on above: Performed By: #### C H8, HEPATIC, MG, TROP I ####[facility] [id number] [place], Urea nitrogen [Mass/Vol] 19 mg/dL Normal 8-22 [facility] Comment on above: Performed By: #### C H8, HEPATIC, MG, TROP I ####S PATHOLOGY [id number] [place], BLOOD GAS, ARTERIALon 2020 CR BARI 1.0 mmol/L Normal -2.0-2.0 [facility] Comment on above: Performed By: #### C R BGA ####S PATHOLOGY [id number] [place], CR PCO2 41.5 mm Hg Normal 35.0-45.0 [facility] Comment on above: Performed By: #### C R BGA ####S PATHOLOGY [id number] [place], CR PHA 7.403 Normal 7.35-7.45 [facility] Comment on above: Performed By: #### C R BGA ####[facility] PATHOLOG[facility] [id number] [place], CR PO2 64 mm Hg Low 80-100 [facility] Comment on above: Performed By: #### C R BGA ####S PATHOLOGY [id number] [place], FIO2 (CATEGORY) 40% Normal [facility] Comment on above: Performed By: #### C R BGA ####S PATHOLOGY [id number] [place], HCO3 (Bld) [Moles/Vol] 25 mmol/L Normal 22-28 [facility] Comment on above: Performed By: #### C R BGA ####S PATHOLOGY [id number] [place], MODE Vent Normal [facility] Comment on above: Result Comment: VT 4 80 Peep +5 RR 18 Performed By: #### C R BGA ####[facility] [id number] [place], Oxygen saturation in Blood 92.1 % Low >=95.1 [facility] Comment on above: Performed By: #### C R BGA ####[facility] [id number] [place], CR BARI 0.1 mmol/L Normal -2.0-2.0 [facility] Comment on above: Performed By: #### C R BGA ####[facility] PATHOLOG[facility] [id number] [place], CR PCO2 52.7 mm Hg High 35.0-45.0 [facility] Comment on above: Performed By: #### C R BGA ####[facility] PATHOLOGY [id number] [place] [address], CR PHA 7.320 Low 7.35-7.45 [facility] Comment on above: Performed By: #### C R BGA ####[facility] PATHOLOG[facility] [id number] [place], CR PO2 42 mm Hg Critically low 80-100 [facility] Comment on above: Performed By: #### Deborah R BGA ####[facility] PATHOLOGY [id number] [place] [address], FIO2 (CATEGORY) 40% Normal [facility] Comment on above: Performed By: #### C R BGA ####[facility] PATHOLOGY [id number] [place] [address], HCO3 (Bld) [Moles/Vol] 26 mmol/L Normal 22-[address] [facility] Comment on above: Performed By: #### C R BGA ####[facility] PATHOLOG[facility] [id number] [place], MODE Vent Normal [facility] Comment on above: Performed By: #### C R BGA ####[facility] PATHOLOG[facility] [id number] [place], Oxygen saturation in Blood 73.5 % Low >=95.1 [facility] Comment on above: Performed By: #### C R BGA ####[facility] PATHOLOGY [id number] [place] [address], CBC WITH DIFFERENTIALon 10-1 0-2021 Basophils (Bld) [#/Vol] 0.05 10*3/uL Normal 0.00-0.[address] [facility] Comment on above: Performed By: #### C BCDSAT ####[facility] PATHOLOGY [id number] [place], Basophils/100 WBC (Bld) 0.3 % Normal <=1.[address] [facility] Comment on above: Performed By: #### C BCDSAT ####[facility] PATHOLOG[facility] [id number] [place], Eosinophils (Bld) [#/Vol] 0.02 10*3/uL Normal 0.00-0.[address] [facility] Comment on above: Performed By: #### C BCDSAT ####[facility] PATHOLOG[facility] [id number] [place], Eosinophils/100 WBC (Bld) 0.1 % Normal 0.1-4.[address] [facility] Comment on above: Performed By: #### C BCDSAT ####[facility] PATHOLOGY [id number] [place] [address], Erythrocyte distribution width (RBC) [Ratio] 14.1 % Normal 11.5-14.[address] [facility] Comment on above: Performed By: #### C BCDSAT ####[facility] PATHOLOGY [id number] [place] [address], Hematocrit (Bld) [Volume fraction] 36.0 % Low 41.0-53.[address] [facility] Comment on above: Performed By: #### C BCDSAT ####[facility] PATHOLOGY [id number] [place] [address], Hemoglobin (Bld) [Mass/Vol] 11.8 g/dL Low 13.9-16.3 [facility] Comment on above: Performed By: #### C BCDSAT ####[facility] PATHOLOG[facility] [id number] [place], Lymphocytes (Bld) [#/Vol] 0.93 10*3/uL Low 1.00-4.[address] [facility] Comment on above: Performed By: #### C BCDSAT ####[facility] PATHOLOGY [id number] [place] [address], Lymphocytes/100 WBC (Bld) 4.9 % Low 24.0-44.0 [facility] Comment on above: Performed By: #### C VERAAT ####[facility] PATHOLOG[facility] [id number] [place], MCH (RBC) [Entitic mass] 30.2 pg Normal 26.0-34.0 [facility] Comment on above: Performed By: #### C VERAAT ####[facility] PATHOLOG[facility] [id number] [place], MCHC (RBC) [Mass/Vol] 32.8 g/dL Normal 32.0-35.9 [facility] Comment on above: Performed By: #### C VERAAT ####[facility] PATHOLOG[facility] [id number] [place], MCV (RBC) [Entitic vol] 92 fL Normal 80-100 [facility] Comment on above: Performed By: #### C VERAAT ####[facility] PATHOLOGY [id number] [place] [address], MONOCYTE DISTRIBUTION WIDTH Normal [facility] Comment on above: Performed By: #### Deborah GAMEZAT ####[facility] PATHOLOG[facility] [id number] [place], Monocytes (Bld) [#/Vol] 1.86 10*3/uL High 0.20-1.[address] [facility] Comment on above: Performed By: #### Deborah GAMEZAT ####[facility] PATHOLOGY [id number] [place] [address], Monocytes/100 WBC (Bld) 9.8 % Normal 2.0-11.0 [facility] Comment on above: Performed By: #### C VERAAT ####[facility] PATHOLOG[facility] [id number] [place], Neutrophils (Bld) [#/Vol] 16.16 10*3/uL High 1.50-8.[address] [facility] Comment on above: Performed By: #### Deborah GMAEZAT ####[facility] PATHOLOG[facility] [id number] [place] [address], Neutrophils/100 WBC (Bld) 85.0 % High 31.0-76.0 [facility] Comment on above: Performed By: #### Deborah GAMEZAT ####[facility] PATH[facility] [id number] [place], Platelet mean volume (Bld) [Entitic vol] 9.0 fL Normal 7.5-11.2 [facility] Comment on above: Performed By: #### Deborah GAMEZAT ####[facility] PATHOLOG[facility] [id number] [place] [address], Platelets (Bld) [#/Vol] 181 10*3/uL Normal 150-400 [facility] Comment on above: Performed By: #### Deborah GAMEZAT ####[facility] PATHOLOGY [id number] [place] [address], RBC (Bld) [#/Vol] 3.91 10*6/uL Low 4.50-5.90 [facility] Comment on above: Performed By: #### Deborah GAMEZAT ####[facility] PATHOLOG[facility] [id number] [place] [address], WBC (Bld) [#/Vol] 19.0 10*3/uL High 4.5-11.5 [facility] Comment on above: Performed By: #### Deborah GAMEZAT ####[facility] PATHOLOG[facility] [id number] [place], Basophils (Bld) [#/Vol] 0.09 10*3/uL Normal 0.00-0.20 [facility] Comment on above: Performed By: #### Deborah GAMEZAT ####[facility] PATHOLOG[facility] [id number] [place], Basophils/100 WBC (Bld) 0.5 % Normal <=1.9 [facility] Comment on above: Performed By: #### Deborah GAMEZAT ####[facility] PATH[facility] [id number] [place], Eosinophils (Bld) [#/Vol] 0.00 10*3/uL Normal 0.00-0.70 [facility] Comment on above: Performed By: #### C BCDSAT ####[facility] PATHOLOG[facility] [id number] [place], Eosinophils/100 WBC (Bld) 0.0 % Low 0.1-4.0 [facility] Comment on above: Performed By: #### C BCDSAT ####[facility] [facility] [id number] [place], [place], Erythrocyte distribution width (RBC) [Ratio] 14.1 % Normal 11.5-14.[address] [facility] Comment on above: Performed By: #### C BCDSAT ####[facility] PATHOLOGY [id number] [place], [place], Hematocrit (Bld) [Volume fraction] 36.1 % Low 41.0-53.[address] [facility] Comment on above: Performed By: #### C BCDSAT ####[facility] PATHOLOGY [id number] [place] [address], Hemoglobin (Bld) [Mass/Vol] 12.1 g/dL Low 13.9-16.[address] [facility] Comment on above: Performed By: #### C BCDSAT ####[facility] PATHOLOGY [id number] [place], Lymphocytes (Bld) [#/Vol] 0.64 10*3/uL Low 1.00-4.[address] [facility] Comment on above: Performed By: #### C BCDSAT ####[facility] PATHOLOGY [id number] [place], Lymphocytes/100 WBC (Bld) 3.3 % Low 24.0-44.[address] [facility] Comment on above: Performed By: #### C BCDSAT ####[facility] PATHOLOGY [id number] [place], MCH (RBC) [Entitic mass] 30.5 pg Normal 26.0-34.0 [facility] Comment on above: Performed By: #### C BCDSAT ####[facility] PATHOLOGY [id number] [place] [address], MCHC (RBC) [Mass/Vol] 33.4 g/dL Normal 32.0-35.9 [facility] Comment on above: Performed By: #### C BCDSAT ####[facility] PATHOLOGY [id number] [place], MCV (RBC) [Entitic vol] 91 fL Normal 80-100 [facility] Comment on above: Performed By: #### C BCDSAT ####[facility] PATHOLOGY [id number] [place], MONOCYTE DISTRIBUTION WIDTH Normal [facility] Comment on above: Performed By: #### C BCDSAT ####[facility] PATHOLOGY [id number] [place], Monocytes (Bld) [#/Vol] 1.73 10*3/uL High 0.20-1.00 [facility] Comment on above: Performed By: #### C BCDSAT ####[facility] PATHOLOGY [id number] [place], Monocytes/100 WBC (Bld) 8.8 % Normal 2.0-11.0 [facility] Comment on above: Performed By: #### C BCDSAT ####[facility] PATHOLOGY [id number] [place], Neutrophils (Bld) [#/Vol] 17.30 10*3/uL High 1.50-8.00 [facility] Comment on above: Performed By: #### C BCDSAT ####[facility] PATHOLOGY [id number] [place], Neutrophils/100 WBC (Bld) 87.5 % High 31.0-76.0 [facility] Comment on above: Performed By: #### C BCDSAT ####S PATHOLOGY [id number] [place], Platelet mean volume (Bld) [Entitic vol] 8.6 fL Normal 7.5-11.2 [facility] Comment on above: Performed By: #### C BCDSAT ####[facility] PATHOLOGY [id number] [place], Platelets (Bld) [#/Vol] 203 10*3/uL Normal 150-400 [facility] Comment on above: Performed By: #### C BCDSAT ####[facility] PATHOLOGY [id number] [place], RBC (Bld) [#/Vol] 3.96 10*6/uL Low 4.50-5.90 [facility] Comment on above: Performed By: #### C BCDSAT ####[facility] PATHOLOGY [id number] [place] [address], WBC (Bld) [#/Vol] 19.8 10*3/uL High 4.5-11.5 [facility] Comment on above: Performed By: #### C BCDSAT ####[facility] PATHOLOGY [id number] [place] [address], COMPLETE BLOOD COUNTon 03-13 Erythrocyte distribution width (RBC) [Ratio] 13.8 % Normal 11.5-14.[address] [facility] Comment on above: Performed By: #### C BC ####[facility] PATHOLOGY [id number] [place] [address], Hematocrit (Bld) [Volume fraction] 37.6 % Low 41.0-53.0 [facility] Comment on above: Performed By: #### C BC ####[facility] PATHOLOGY [id number] [place] [address], Hemoglobin (Bld) [Mass/Vol] 12.5 g/dL Low 13.9-16.[address] [facility] Comment on above: Performed By: #### C BC ####[facility] PATHOLOGY [id number] [place] [address], MCH (RBC) [Entitic mass] 30.7 pg Normal 26.0-34.0 [facility] Comment on above: Performed By: #### C BC ####[facility] PATHOLOG[facility] [id number] [place], MCHC (RBC) [Mass/Vol] 33.1 g/dL Normal 32.0-35.9 [facility] Comment on above: Performed By: #### C BC ####[facility] PATHOLOGY [id number] [place], MCV (RBC) [Entitic vol] 93 fL Normal 80-100 [facility] Comment on above: Performed By: #### C BC ####[facility] PATHOLOGY [id number] [place], Platelet mean volume (Bld) [Entitic vol] 9.1 fL Normal 7.5-11.2 [facility] Comment on above: Performed By: #### C BC ####[facility] PATHOLOGY [id number] [place], Platelets (Bld) [#/Vol] 186 10*3/uL Normal 150-400 [facility] Comment on above: Performed By: #### C BC ####[facility] PATHOLOGY [id number] [place], RBC (Bld) [#/Vol] 4.05 10*6/uL Low 4.50-5.90 [facility] Comment on above: Performed By: #### C BC ####[facility] PATHOLOGY [id number] [place] [address], WBC (Bld) [#/Vol] 19.4 10*3/uL High 4.5-11.5 [facility] Comment on above: Performed By: #### C BC ####[facility] PATHOLOGY [id number] [place], Erythrocyte distribution width (RBC) [Ratio] 13.9 % Normal 11.5-14.5 [facility] Comment on above: Performed By: #### C BC ####[facility] PATHOLOGY [id number] [place], Hematocrit (Bld) [Volume fraction] 39.5 % Low 41.0-53.0 [facility] Comment on above: Performed By: #### C BC ####S PATHOLOGY [id number] [place], Hemoglobin (Bld) [Mass/Vol] 13.2 g/dL Low 13.9-16.3 [facility] Comment on above: Performed By: #### C BC ####[facility] PATHOLOGY [id number] [place], MCH (RBC) [Entitic mass] 30.3 pg Normal 26.0-34.0 [facility] Comment on above: Performed By: #### C BC ####S PATHOLOGY [id number] [place], MCHC (RBC) [Mass/Vol] 33.4 g/dL Normal 32.0-35.[address] [facility] Comment on above: Performed By: #### C BC ####[facility] PATHOLOGY [id number] [place], MCV (RBC) [Entitic vol] 91 fL Normal 80-[address] [facility] Comment on above: Performed By: #### C BC ####[facility] PATHOLOGY [id number] [place], Platelet mean volume (Bld) [Entitic vol] 8.6 fL Normal 7.5-11.[address] [facility] Comment on above: Performed By: #### C BC ####[facility] PATHOLOGY [id number] [place], Platelets (Bld) [#/Vol] 219 10*3/uL Normal 150-[address] [facility] Comment on above: Performed By: #### C BC ####[facility] PATHOLOGY [id number] [place], RBC (Bld) [#/Vol] 4.35 10*6/uL Low 4.50-5.[address] [facility] Comment on above: Performed By: #### C BC ####S PATHOLOGY [id number] [place], WBC (Bld) [#/Vol] 21.9 10*3/uL High 4.5-11.5 [facility] Comment on above: Performed By: #### C BC ####S PATHOLOGY [id number] [place], [place], Consultson 03-13-2021 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 Interface Message Text Normal [facility] GLUCOSE, FINGERSTICK-IN OFFI CEon 03-13-2021 Glucose [Mass/Vol] 194 mg/dL High 80-116 [facility] Comment on above: Performed By: #### 8 2948 ####NURSING GLUCOSE [id number] [place], [address] Glucose [Mass/Vol] 207 mg/dL High 80-116 [facility] Comment on above: Performed By: #### 8 2948 ####NURSING GLUCOSE [id number] [place], [address] H AND Josue 03-13-2021 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 Interface Message Text Normal [facility] HEPATIC FUNCTION PANELon Albumin [Mass/Vol] 3.7 g/dL Normal 3.4-5.1 [facility] Comment on above: Performed By: #### YOEL Garcia, HEPATIC ####S PATHOLOGY [id number] [place], ALK 68 IU/L Normal 40-200 [facility] Comment on above: Performed By: #### YOEL Garcia, HEPATIC ####S PATHOLOGY [id number] [place], ALT [Catalytic activity/Vol] 34 U/L Normal 7-40 [facility] Comment on above: Performed By: ###YOEL Mcknight, HEPATIC ####[facility] [id number] [place], AST [Catalytic activity/Vol] 29 U/L Normal 7-40 [facility] Comment on above: Performed By: ###YOEL Mcknight, HEPATIC ####[facility] [id number] [place], Bilirubin [Mass/Vol] 1.9 mg/dL High 0.1-1.5 [facility] Comment on above: Performed By: #### YOEL Garcia, HEPATIC ####[facility] [id number] [place], Bilirubin.direct [Mass/Vol] 0.40 mg/dL High 0.10-0.30 [facility] Comment on above: Performed By: #### YOEL Garcia, HEPATIC ####[facility] [id number] [place], Protein [Mass/Vol] 6.7 g/dL Normal 5.7-8.1 [facility] Comment on above: Performed By: #### M G, CH8, HEPATIC ####[facility] PATHOLOGY [id number] [place], Albumin [Mass/Vol] 4.0 g/dL Normal 3.4-5.1 [facility] Comment on above: Performed By: #### C H8, HEPATIC, MG, TROP I ####[facility] PATHOLOGY [id number] [place], ALK 72 IU/L Normal 40-200 [facility] Comment on above: Performed By: #### Deborah H8, HEPATIC, MG, TROP I ####[facility] PATHOLOGY [id number] [place] [address], ALT [Catalytic activity/Vol] 31 U/L Normal 7-40 [facility] Comment on above: Performed By: #### Deborah H8, HEPATIC, MG, TROP I ####[facility] PATHOLOGY [id number] [place], AST [Catalytic activity/Vol] 26 U/L Normal 7-40 [facility] Comment on above: Performed By: #### C H8, HEPATIC, MG, TROP I ####[facility] PATHOLOGY [id number] [place], Bilirubin [Mass/Vol] 2.2 mg/dL High 0.1-1.5 [facility] Comment on above: Performed By: #### C H8, HEPATIC, MG, TROP I ####[facility] PATHOLOGY [id number] [place], Bilirubin.direct [Mass/Vol] 0.60 mg/dL High 0.10-0.30 [facility] Comment on above: Performed By: #### C H8, HEPATIC, MG, TROP I ####[facility] PATHOLOGY [id number] [place], Protein [Mass/Vol] 6.8 g/dL Normal 5.7-8.1 [facility] Comment on above: Performed By: #### C H8, HEPATIC, MG, TROP I ####S PATHOLOGY [id number] [place], LACTIC ACIDon 03-13-2021 CR LACT 1.7 mmol/L Normal 0.5-2.0 [facility] Comment on above: Performed By: #### L ACT ####[facility] PATHOLOGY [id number] [place] [address], MAGNESIUMon 03-13-2021 Magnesium [Mass/Vol] 2.3 mg/dL Normal 1.6-2.8 [facility] Comment on above: Performed By: #### M G, CH8, HEPATIC ####[facility] PATHOLOGY [id number] [place], Magnesium [Mass/Vol] 2.3 mg/dL Normal 1.6-2.8 [facility] Comment on above: Performed By: #### C H8, HEPATIC, MG, TROP I ####[facility] PATHOLOGY [id number] [place], PARTIAL THROMBOPLASTIN TIMEo n 03-13-2021 aPTT Coag (Bld) [Time] 79 s High 25-37 [facility] Comment on above: Performed By: #### A PTT ####[facility] PATHOLOGY [id number] [place] [address], aPTT Coag (Bld) [Time] 74 s High 25-37 [facility] Comment on above: Performed By: #### A PTT ####[facility] PATHOLOGY [id number] [place] [address], aPTT Coag (Bld) [Time] 31 s Normal 25-37 [facility] Comment on above: Performed By: #### A PTT ####S PATHOLOGY [id number] [place], aPTT Coag (Bld) [Time] 34 s Normal 25-37 [facility] Comment on above: Performed By: #### P T, APTT ####[facility] PATHOLOGY [id number] [place] [address], PROTHROMBIN TIME AND INRon 1 INR Coag (PPP) [Relative time] 1.78 {INR} High 0.90-1.10 [facility] Comment on above: Performed By: #### P T ####S PATHOLOGY [id number] [place], PT Coag (PPP) [Time] 19.7 s High 9.7-12.9 [facility] Comment on above: Performed By: #### P T ####S PATHOLOGY [id number] [place], INR Coag (PPP) [Relative time] 1.82 {INR} High 0.90-1.10 [facility] Comment on above: Performed By: #### P T, APTT ####S PATHOLOGY [id number] [place] [address], PT Coag (PPP) [Time] 20.1 s High 9.7-12.9 [facility] Comment on above: Performed By: #### P T, APTT ####[facility] PATHOLOGY [id number] [place], Progress Noteson 03-13-2021 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 Interface Message Text Attempted to reach out to family to give update. Unable to reach. Will continue to try to reach out. Dorian Martel MD PGY-3 Normal [facility] 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 Interface Message Text Normal [facility] 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 Interface Message Text Normal [facility] 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 Interface Message Text Normal [facility] 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 Interface Message Text Normal [facility] 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 Interface Message Text Normal [facility] RESPIRATORY CULTURE, MISCon 03-13-2021 RESPIRATORY CULTURE, MISC Normal [facility] Comment on above: Performed By: #### C RESP ####[facility] Eqzkjfoln6170 [place], [place] TROPONIN Ion 03-13-2021 TROP I < 0.030 Normal <0.120 [facility] Comment on above: Result Comment: Rang e <=0.04 ng/mL: NegativeInterpretation: Repeat testing in four to six hours if clinically indicated.Range 0.04-0.11 ng/mL: Suspected for acute myocardial injury.Interpretation: Serial measurements may be necessary to confirm or exclude the diagnosis of acute coronary syndrome. Repeat testing in four to six hours if clinically indicated.Range >=0.12 ng/mL: Results consistent with myocardial injury. Interpretation: Clinical and laboratory correlation recommended. Performed By: #### T ROP I ####S PATHOLOGY [id number] [place], TROP I 0.036 ng/mL Normal <0.120 [facility] Comment on above: Result Comment: Rang e <=0.04 ng/mL: NegativeInterpretation: Repeat testing in four to six hours if clinically indicated.Range 0.04-0.11 ng/mL: Suspected for acute myocardial injury.Interpretation: Serial measurements may be necessary to confirm or exclude the diagnosis of acute coronary syndrome. Repeat testing in four to six hours if clinically indicated.Range >=0.12 ng/mL: Results consistent with myocardial injury. Interpretation: Clinical and laboratory correlation recommended. Performed By: #### C H8, HEPATIC, MG, TROP I ####[facility] PATHOLOGY [id number] [place], XR CHEST 1 VIEW AP OR PAon 1 XR CHEST 1 VIEW AP OR PA Normal [facility] ABO RH TYPEon 03-12-2021 ABO and Rh group Nom (Bld) Blood group AB Rh(D) positive Normal [facility] Comment on above: Performed By: #### A GILMA ####[facility] PATHOLOGY [id number] [place], Anesthesia Attestationon 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 Interface Message Text Normal [facility] Anesthesia Preprocedure Eval uationon 03-12-2021 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 Interface Message Text Normal [facility] B TYPE NATRIURETIC PEPTIDEon 03-12-2021 Natriuretic peptide B (Bld) [Mass/Vol] 132.0 pg/mL High <100.0 [facility] Comment on above: Performed By: #### B PL, CBCDSAT ####S PATHOLOGY [id number] [place], BASIC METABOLIC PANELon 10-0 Anion gap [Moles/Vol] 15 mmol/L Normal 10-[address] [facility] Comment on above: Performed By: #### M G, HEPATIC, TROP I, LIP, CH8 ####[facility] PATHOLOGY [id number] [place], Calcium [Mass/Vol] 8.8 mg/dL Normal 8.4-10.4 [facility] Comment on above: Performed By: #### M G, HEPATIC, TROP I, LIP, CH8 ####[facility] PATHOLOGY [id number] [place], Chloride [Moles/Vol] 100 mmol/L Normal 97-111 [facility] Comment on above: Performed By: #### M G, HEPATIC, TROP I, LIP, CH8 ####[facility] PATHOLOGY [id number] [place], CO2 [Moles/Vol] 24 mmol/L Normal 21-30 [facility] Comment on above: Performed By: #### Roselia G, HEPATIC, TROP I, LIP, CH8 ####[facility] PATHOLOGY [id number] [place], Creatinine [Mass/Vol] 1.07 mg/dL Normal 0.80-1.30 [facility] Comment on above: Performed By: #### M G, HEPATIC, TROP I, LIP, CH8 ####[facility] PATHOLOGY [id number] [place], ESTIMATED GFR (CKD-EPI) 68 mL/min/1.73sqm Normal >=60 [facility] Comment on above: Performed By: #### M G, HEPATIC, TROP I, LIP, CH8 ####[facility] PATHOLOGY [id number] [place], Glucose [Mass/Vol] 198 mg/dL High 80-116 [facility] Comment on above: Performed By: #### M G, HEPATIC, TROP I, LIP, CH8 ####[facility] PATHOLOGY [id number] [place], Potassium [Moles/Vol] 4.1 mmol/L Normal 3.3-5.3 [facility] Comment on above: Performed By: #### M G, HEPATIC, TROP I, LIP, CH8 ####[facility] PATHOLOGY [id number] [place], Sodium [Moles/Vol] 135 mmol/L Normal 135-148 [facility] Comment on above: Performed By: #### M G, HEPATIC, TROP I, LIP, CH8 ####[facility] PATHOLOGY [id number] [place], Urea nitrogen [Mass/Vol] 17 mg/dL Normal 8-22 [facility] Comment on above: Performed By: #### M G, HEPATIC, TROP I, LIP, CH8 ####[facility] PATHOLOGY [id number] [place], BLOOD CULTUREon 03-12-2021 Bacteria identified Cx Nom (Bld) C BLOOD: No Growth Normal [facility] Comment on above: Performed By: #### C BLOOD ####[facility] Dzlrfgfrt[address] [place], [place] [address] Blood Attestationon 03-12-20 21 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 Interface Message Text Normal [facility] CBC WITH DIFFERENTIALon Basophils (Bld) [#/Vol] 0.04 10*3/uL Normal 0.00-0.20 [facility] Comment on above: Performed By: #### B PL, CBCDSAT ####[facility] PATHOLOGY [id number] [place], Basophils/100 WBC (Bld) 0.2 % Normal <=1.9 [facility] Comment on above: Performed By: #### B PL, CBCDSAT ####[facility] PATHOLOGY [id number] [place], Eosinophils (Bld) [#/Vol] 0.00 10*3/uL Normal 0.00-0.70 [facility] Comment on above: Performed By: #### B PL, CBCDSAT ####[facility] PATHOLOGY [id number] [place], Eosinophils/100 WBC (Bld) 0.0 % Low 0.1-4.0 [facility] Comment on above: Performed By: #### B PL, CBCDSAT ####S PATHOLOGY [id number] [place], Erythrocyte distribution width (RBC) [Ratio] 13.9 % Normal 11.5-14.5 [facility] Comment on above: Performed By: #### B PL, CBCDSAT ####S PATHOLOGY [id number] [place] [address], Hematocrit (Bld) [Volume fraction] 42.0 % Normal 41.0-53.0 [facility] Comment on above: Performed By: #### B PL, CBCDSAT ####S PATHOLOGY [id number] [place] [address], Hemoglobin (Bld) [Mass/Vol] 14.1 g/dL Normal 13.9-16.3 [facility] Comment on above: Performed By: #### B PL, CBCDSAT ####[facility] PATHOLOGY [id number] [place] [address], Lymphocytes (Bld) [#/Vol] 0.58 10*3/uL Low 1.00-4.80 [facility] Comment on above: Performed By: #### B PL, CBCDSAT ####S PATHOLOGY [id number] [place] [address], Lymphocytes/100 WBC (Bld) 2.5 % Low 24.0-44.[address] [facility] Comment on above: Performed By: #### B PL, CBCDSAT ####S PATHOLOGY [id number] [place], MCH (RBC) [Entitic mass] 30.4 pg Normal 26.0-34.[address] [facility] Comment on above: Performed By: #### B PL, CBCDSAT ####S PATHOLOGY [id number] [place] [address], MCHC (RBC) [Mass/Vol] 33.5 g/dL Normal 32.0-35.[address] [facility] Comment on above: Performed By: #### B PL, CBCDSAT ####S PATHOLOGY [id number] [place], MCV (RBC) [Entitic vol] 91 fL Normal 80-100 [facility] Comment on above: Performed By: #### B PL, CBCDSAT ####[facility] [id number] [place], MONOCYTE DISTRIBUTION WIDTH 18 Normal <=20 [facility] Comment on above: Performed By: #### B PL, CBCDSAT ####S PATHOLOGY [id number] [place], Monocytes (Bld) [#/Vol] 1.72 10*3/uL High 0.20-1.00 [facility] Comment on above: Performed By: #### B PL, CBCDSAT ####S PATHOLOGY [id number] [place], [place], Monocytes/100 WBC (Bld) 7.5 % Normal 2.0-11.0 [facility] Comment on above: Performed By: #### B PL, CBCDSAT ####[facility] PATHOLOGY [id number] [place], [place], Neutrophils (Bld) [#/Vol] 20.56 10*3/uL High 1.50-8.00 [facility] Comment on above: Performed By: #### B PL, CBCDSAT ####[facility] PATHOLOGY [id number] [place], Neutrophils/100 WBC (Bld) 89.8 % High 31.0-76.0 [facility] Comment on above: Performed By: #### B PL, CBCDSAT ####S PATHOLOGY [id number] [place], Platelet mean volume (Bld) [Entitic vol] 9.0 fL Normal 7.5-11.2 [facility] Comment on above: Performed By: #### B PL, CBCDSAT ####S PATHOLOGY [id number] [place], Platelets (Bld) [#/Vol] 226 10*3/uL Normal 150-400 [facility] Comment on above: Performed By: #### B PL, CBCDSAT ####[facility] PATHOLOGY [id number] [place], RBC (Bld) [#/Vol] 4.64 10*6/uL Normal 4.50-5.90 [facility] Comment on above: Performed By: #### B PL, CBCDSAT ####[facility] PATHOLOGY [id number] [place], WBC (Bld) [#/Vol] 22.9 10*3/uL High 4.5-11.5 [facility] Comment on above: Performed By: #### B PL, CBCDSAT ####[facility] PATHOLOGY [id number] [place], COVID/INFLUENZAon 03-12-2021 INFLUENZA A Not detected Normal Not Detected [facility] Comment on above: Order Comment: This test is intended for use only under Emergency Use Authorization (EUA). This test was developed, and its performance characteristics determined by [facility] which is certified under CLIA as qualified to perform high complexity clinical laboratory testing. Result Comment: This assay was performed using [employer] JORDAN RTPCR technology. Performed By: #### F SOLOMON/COVID ####[facility] PATHOLOGY [id number] [place], INFLUENZA B Not detected Normal Not Detected [facility] Comment on above: Order Comment: This test is intended for use only under Emergency Use Authorization (EUA). This test was developed, and its performance characteristics determined [facility] which is certified under CLIA as qualified to perform high complexity clinical laboratory testing. Result Comment: This assay was performed using [employer] JORDAN RTPCR technology. Performed By: #### F SOLOMON/COVID ####[facility] PATHOLOGY [id number] [place], SARS-CoV-2 (COVID-19) RNA MICHELLE+probe Ql (Unsp spec) Not detected Normal Not Detected [facility] Comment on above: Order Comment: This test is intended for use only under Emergency Use Authorization (EUA). This test was developed, and its performance characteristics determined by [facility] which is certified under CLIA as qualified to perform high complexity clinical laboratory testing. Result Comment: This assay was performed using ZokemT RTPCR technology. Performed By: #### F SOLOMON/NIMESH ####S PATHOLOGY [id number] [place], [place], CT CHEST W/ CONTRASTon 03-12 CT CHEST W/ CONTRAST Normal [facility] CT NECK W/ CONTRASTon 2020 CT NECK W/ CONTRAST Normal [facility] Consultson 03-12-2021 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 Interface Message Text Normal [facility] ED Noteson 03-12-2021 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 Interface Message Text 1200- EKG COMPLETED AND SHOWN TO ATTENDING. Normal [facility] 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 Interface Message Text 1052- IV ESTABLISHED, BLOOD SPECIMENS IN STAT LAB. Normal [facility] ED Provider Noteson 03-12-20 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 Interface Message Text Normal [facility] FFPon 03-12-2021 BB ORDER ITEM Product status info to follow Normal [facility] Comment on above: Performed By: #### F FO ####S PATHOLOGY [id number] [place], HEPATIC FUNCTION PANELon Albumin [Mass/Vol] 4.2 g/dL Normal 3.4-5.1 [facility] Comment on above: Performed By: #### M G, HEPATIC, TROP I, LIP, CH8 ####S PATHOLOGY [id number] [place], ALK 79 IU/L Normal 40-[address] [facility] Comment on above: Performed By: #### M G, HEPATIC, TROP I, LIP, CH8 ####S PATHOLOGY [id number] [place], ALT [Catalytic activity/Vol] 37 U/L Normal 7-40 [facility] Comment on above: Performed By: #### M G, HEPATIC, TROP I, LIP, CH8 ####S PATHOLOGY [id number] [place], AST [Catalytic activity/Vol] 31 U/L Normal 7-[address] [facility] Comment on above: Performed By: #### M G, HEPATIC, TROP I, LIP, CH8 ####S PATHOLOGY [id number] [place], Bilirubin [Mass/Vol] 1.8 mg/dL High 0.1-1.5 [facility] Comment on above: Performed By: #### M G, HEPATIC, TROP I, LIP, CH8 ####[facility] PATHOLOGY [id number] [place], Bilirubin.direct [Mass/Vol] 0.40 mg/dL High 0.10-0.30 [facility] Comment on above: Performed By: #### M G, HEPATIC, TROP I, LIP, CH8 ####[facility] PATHOLOGY [id number] [place], Protein [Mass/Vol] 7.4 g/dL Normal 5.7-8.1 [facility] Comment on above: Performed By: #### M G, HEPATIC, TROP I, LIP, CH8 ####[facility] PATHOLOGY [id number] [place], LIPASEon 03-12-2021 LIP 27 IU/L Normal <128 [facility] Comment on above: Performed By: #### M G, HEPATIC, TROP I, LIP, CH8 ####S PATHOLOGY [id number] [place], MAGNESIUMon 03-12-2021 Magnesium [Mass/Vol] 1.9 mg/dL Normal 1.6-2.[address] [facility] Comment on above: Performed By: #### M G, HEPATIC, TROP I, LIP, CH8 ####[facility] PATHOLOGY [id number] [place], OP Noteon 03-12-2021 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 Interface Message Text Normal [facility] 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 Interface Message Text See detailed note 03/12/2021 in the OR. Normal [facility] PARTIAL THROMBOPLASTIN TIMEo n 03-12-2021 aPTT Coag (Bld) [Time] 38 s High 25-37 [facility] Comment on above: Performed By: #### P T, APTT ####S PATHOLOGY [id number] [place], PLASMA STATUSon 03-12-2021 BLOOD PRODUCT CODE [id number] Normal [facility] Comment on above: Performed By: #### F FU ####S PATHOLOGY [id number] [place], BLOOD PRODUCT CODE [id number] Normal [facility] Comment on above: Performed By: #### F FU ####S PATHOLOGY [id number] [place], BLOOD PRODUCT DESCRIPTION FFP Normal [facility] Comment on above: Performed By: #### F FU ####S PATHOLOGY [id number] [place], BLOOD PRODUCT STATUS Transfused Normal [facility] Comment on above: Performed By: #### F FU ####[facility] PATHOLOGY [id number] [place] [address], BLOOD PRODUCT UNIT INFO [id number] Normal [facility] Comment on above: Performed By: #### F FU ####[facility] PATHOLOGY [id number] [place], BLOOD PRODUCT UNIT INFO [id number] Normal [facility] Comment on above: Performed By: #### F FU ####[facility] PATHOLOGY [id number] [place], BLOOD PRODUCT UNIT TYPE 8400 Normal [facility] Comment on above: Result Comment: AB P os Performed By: #### F FU ####[facility] PATHOLOGY [id number] [place], PROTHROMBIN TIME AND INRon 1 INR Coag (PPP) [Relative time] 2.44 {INR} High 0.90-1.10 [facility] Comment on above: Performed By: #### P T, APTT ####S PATHOLOGY [id number] [place] [address], PT Coag (PPP) [Time] 27.3 s High 9.7-12.9 [facility] Comment on above: Performed By: #### P T, APTT ####[facility] PATHOLOGY [id number] [place], Progress Noteson 03-12-2021 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 Interface Message Text Normal [facility] RED BLOOD CELL COMPONENTon 1 BB ORDER ITEM Product status info to follow Normal [facility] Comment on above: Performed By: #### R RUFINO ####[facility] PATHOLOGY [id number] [place], RED BLOOD CELL UNIT STATUSon 03-12-2021 BLOOD PRODUCT CODE [id number] Normal [facility] Comment on above: Performed By: #### R BU ####[facility] PATHOLOGY [id number] [place], BLOOD PRODUCT DESCRIPTION Red Blood Cells Normal [facility] Comment on above: Performed By: #### R BU ####S PATHOLOGY [id number] [place], BLOOD PRODUCT STATUS Transfused Normal [facility] Comment on above: Performed By: #### R BU ####S PATHOLOGY [id number] [place], BLOOD PRODUCT STATUS Released to avail Normal [facility] Comment on above: Performed By: #### R BU ####[facility] PATHOLOGY [id number] [place], BLOOD PRODUCT UNIT INFO [id number] Normal [facility] Comment on above: Performed By: #### R BU ####[facility] PATHOLOGY [id number] [place], BLOOD PRODUCT UNIT INFO [id number] Normal [facility] Comment on above: Performed By: #### R BU ####[facility] PATHOLOGY [id number] [place], BLOOD PRODUCT UNIT TYPE 8400 Normal [facility] Comment on above: Result Comment: AB P os Performed By: #### R BU ####[facility] PATHOLOGY [id number] [place], CROSSMATCH INTERPRETATION Compatible (E) Normal [facility] Comment on above: Performed By: #### R BU ####[facility] PATHOLOGY [id number] [place], TROPONIN Ion 03-12-2021 TROP I < 0.030 Normal <0.[address] [facility] Comment on above: Result Comment: Rang e <=0.04 ng/mL: NegativeInterpretation: Repeat testing in four to six hours if clinically indicated.Range 0.04-0.11 ng/mL: Suspected for acute myocardial injury.Interpretation: Serial measurements may be necessary to confirm or exclude the diagnosis of acute coronary syndrome. Repeat testing in four to six hours if clinically indicated.Range >=0.12 ng/mL: Results consistent with myocardial injury. Interpretation: Clinical and laboratory correlation recommended. Performed By: #### M G, HEPATIC, TROP I, LIP, CH8 ####[facility] PATHOLOGY [id number] [place], TYPE AND SCREENon 03-12-2021 ABO and Rh group Nom (Bld) Blood group AB Rh(D) positive Normal [facility] Comment on above: Performed By: #### T S ####[facility] PATHOLOGY [id number] [place], ABO and Rh group Nom (Bld) No Previous Results Normal [facility] Comment on above: Performed By: #### T S ####[facility] PATHOLOGY [id number] [place], ABSC INT Negative Normal [facility] Comment on above: Performed By: #### T S ####[facility] PATHOLOGY [id number] [place], XR CHEST 1 VIEW AP OR PAon 1 XR CHEST 1 VIEW AP OR PA Normal [facility] Coumad[facility] Management: Lulyari n Calcon 03-29-2017 INR Coag RelTime (Bld) Hospital lab Invalid Interpretation Code [facility] Work Phone: [phone] INR Coag RelTime (Bld) 2.5 to 3.5 Invalid Interpretation Code [facility] Work Phone: [phone] INR Coag RelTime (PPP) 2.5 {INR} Invalid Interpretation Code [facility] Work Phone: [phone] international normalized ratio (INR) range 2.5 to 3.5 Invalid Interpretation Code [facility] Work Phone: [phone] Prothrombin time (PT) Coag time (PPP) 25.9 s Invalid Interpretation Code [facility] Work Phone: [phone] Lab Report: Prothrombin Time w/INRon 03-29-2017 Prothrombin time (PT) Coag time (PPP) 25.9 s High 11.7-14.9 [facility] Work Phone: [phone] Coumadin Management: [place] Energysridevi n Calcon 03-16-2017 INR Coag RelTime (Bld) 2.5 to 3.5 Invalid Interpretation Code [facility] Work Phone: [phone] Coumadin Management: [place] Energysridevi n Calcon 03-15-2017 INR Coag RelTime (Bld) Hospital lab Invalid Interpretation Code [facility] Work Phone: [phone] Prothrombin time (PT) Coag time (PPP) 24.8 s Invalid Interpretation Code [facility] Work Phone: [phone] Lab Report: Prothrombin Time w/INRon 03-15-2017 INR Coag RelTime (PPP) 2.4 {INR} Invalid Interpretation Code [facility] Work Phone: [phone] Prothrombin time (PT) Coag time (PPP) 24.8 s High 11.7-14.9 [facility] Work Phone: [phone] Coumadin Management: [place] [employer]ridevi n Calcon 03-09-2017 INR Coag RelTime (Bld) Hospital lab Invalid Interpretation Code [facility] Work Phone: [phone] INR Coag RelTime (PPP) 2.1 {INR} Invalid Interpretation Code [facility] Work Phone: [phone] international normalized ratio (INR) range 2.5 to 3.5 Invalid Interpretation Code [facility] Work Phone: [phone] Prothrombin time (PT) Coag time (PPP) 22.5 s Invalid Interpretation Code [facility] Work Phone: [phone] Lab Report: Prothrombin Time w/INRon 03-09-2017 Prothrombin time (PT) Coag time (PPP) 22.5 s High 11.7-14.9 [facility] Work Phone: Coumadin Management: Lulysridevi Stewart 03-06-2017 INR Coag RelTime (Bld) Fingerstick Invalid Interpretation Code [facility] Work Phone: INR Coag RelTime (Bld) 2.5 to 3.5 Invalid Interpretation Code [facility] Work Phone: INR Coag RelTime (PPP) 2.0 {INR} Invalid Interpretation Code [facility] Work Phone: Prothrombin time (PT) Coag time (PPP) 24.4 s Invalid Interpretation Code [facility] Work Phone: Coumadin Management: Lulysridevi Stewart 03-02-2017 Coagulation tissue factor induced in platelet poor plasma 19.5 s Invalid Interpretation Code [facility] Work Phone: INR in blood by coagulation Fingerstick Invalid Interpretation Code [facility] Work Phone: INR in blood by coagulation 1.6 {INR} Invalid Interpretation Code [facility] Work Phone: INR in blood by coagulation 2.5 to 3.5 Invalid Interpretation Code [facility] Work Phone: Coumadin Management: Lulysridevi Stewart 02-21-2017 Coagulation tissue factor induced in platelet poor plasma 0 s Invalid Interpretation Code [facility] Work Phone: INR in blood by coagulation Fingerstick Invalid Interpretation Code [facility] Work Phone: INR in blood by coagulation 1.6 {INR} Invalid Interpretation Code [facility] Work Phone: INR in blood by coagulation 2.5 to 3.5 Invalid Interpretation Code [facility] Work Phone: Coumadin Management: Lulysridevi Stewart 02-13-2017 Coagulation tissue factor induced in platelet poor plasma 0 s Invalid Interpretation Code [facility] Work Phone: INR in blood by coagulation Fingerstick Invalid Interpretation Code [facility] Work Phone: INR in blood by coagulation 2.4 {INR} Invalid Interpretation Code [facility] Work Phone: [phone] INR in blood by coagulation 2.5 to 3.5 Invalid Interpretation Code [facility] Work Phone: [phone] Coumadin Management: Anthony Stewart 02-09-2017 INR Coag RelTime (Bld) Fingerstick [facility] Work Phone: [phone] INR Coag RelTime (PPP) 2.7 {INR} [facility] Work Phone: [phone] international normalized ratio (INR) range 2.5 to 3.5 [facility] Work Phone: [phone] Prothrombin time (PT) Coag time (PPP) 32.7 s [facility] Work Phone: [phone] Coumadin Management: Anthony Stewart 02-06-2017 Coagulation tissue factor induced in platelet poor plasma 0 s Invalid Interpretation Code [facility] Work Phone: [phone] INR in blood by coagulation Fingerstick Invalid Interpretation Code [facility] Work Phone: [phone] INR in blood by coagulation 5.2 {INR} Invalid Interpretation Code [facility] Work Phone: [phone] INR in blood by coagulation 2.5 to 3.5 Invalid Interpretation Code [facility] Work Phone: [phone] Coumadin Management: Anthony Stewart 01-29-2017 INR Coag RelTime (Bld) Hospital lab [facility] Work Phone: [phone] INR Coag RelTime (PPP) 2.8 {INR} [facility] Work Phone: [phone] international normalized ratio (INR) range 2.5 to 3.5 [facility] Work Phone: [phone] Prothrombin time (PT) Coag time (PPP) 0 s [facility] Work Phone: [phone] Coumadin Management: Anthony Stewart 11-08-2016 INR Coag (Bld) [Relative time] Hospital lab Invalid Interpretation Code [facility] Work Phone: INR Coag (PPP) [Relative time] 2.8 {INR} [facility] Work Phone: INR in blood by coagulation 2.8 {INR} Invalid Interpretation Code [facility] Work Phone: [phone] INR in blood by coagulation 2.5 to 3.5 Invalid Interpretation Code [facility] Work Phone: [phone] international normalized ratio (INR) range 2.5 to 3.5 [facility] Work Phone: [phone] PT Coag (PPP) [Time] 28.4 s Invalid Interpretation Code [facility] Work Phone: [phone] Lab Report: Prothrombin Time w/INRon 11-08-2016 PT Coag (PPP) [Time] 28.4 s High 11.7-14.[address] [facility] Work Phone: [phone] Office Visit: [facility] 11-09-19 17 Documentation of current medications (procedure) Done Invalid Interpretation Code [facility] Work Phone: [phone] Fall risk assessment No Invalid Interpretation Code [facility] Work Phone: [phone] Protein mass conc Done Invalid Interpretation Code [facility] Work Phone: [phone] Clinical Lists Updateon Left ventricular Ejection fraction 65 % Invalid Interpretation Code [facility] Work Phone: [phone] Office Visit: continue on Au gmentin until surgeryon 09-27-2016 Adolescent depression screening assessment Adolescent depression screening assessment Invalid Interpretation Code [facility] Work Phone: Adult depression screening assessment Adolescent depression screening assessment Invalid Interpretation Code [facility] Work Phone: [phone] Documentation of current medications (procedure) Done Invalid Interpretation Code [facility] Work Phone: Coumadin Management: Warfari n Calcon 09-25-2016 Coagulation tissue factor induced in platelet poor plasma 24.7 s Invalid Interpretation Code [facility] Work Phone: [phone] INR in blood by coagulation Hospital lab Invalid Interpretation Code [facility] Work Phone: [phone] INR in blood by coagulation 2.3 {INR} Invalid Interpretation Code [facility] Work Phone: [phone] INR in blood by coagulation 2.5 to 3.5 Invalid Interpretation Code [facility] Work Phone: Lab Report: Basic Metabolic Profile (BMP)on 09-25-2016 Anion gap 4 mmol/L Low 5-15 [facility] Work Phone: Anion gap 4 molar conc 4 Low 5-15 [facility] Work Phone: [phone] Anion gap [Moles/Vol] 4 mmol/L Low 5-15 [facility] Work Phone: [phone] BUN/Creatinine Ratio 14.2 RATIO Invalid Interpretation Code 10-20 [facility] Work Phone: Calcium 8.7 mg/dL Invalid Interpretation Code 8.5-10.1 [facility] Work Phone: [phone] Chloride 105 mmol/L Invalid Interpretation Code 98-107 [facility] Work Phone: [phone] CO2 28.0 mmol/L Invalid Interpretation Code 21.0-32.0 [facility] Work Phone: [phone] CO2 (BldV) [Partial pressure] 28.0 mmol/L Invalid Interpretation Code 21.0-32.0 [facility] Work Phone: [phone] Creatinine 1.20 mg/dL Invalid Interpretation Code 0.70-1.30 [facility] Work Phone: eGFR (non-black) 77 mL/min/{1.73_m2} Invalid Interpretation Code >60 [facility] Work Phone: eGFR (non-black) 63 mL/min/{1.73_m2} Invalid Interpretation Code >60 [facility] Work Phone: [phone] EST GFR - AA 77 mL/min Invalid Interpretation Code >60 [facility] Work Phone: [phone] Glucose 143 mg/dL High 70-110 [facility] Work Phone: Glucose [Mass/Vol] 143 mg/dL High 70-110 [facility] Work Phone: [phone] Potassium 4.2 mmol/L Invalid Interpretation Code 3.5-5.1 [facility] Work Phone: Sodium 137 mmol/L Invalid Interpretation Code 136-145 [facility] Work Phone: Urea nitrogen 17 mg/dL Invalid Interpretation Code 7-18 [facility] Work Phone: Lab Report: Prothrombin Time w/INRon 09-25-2016 Coagulation tissue factor induced in platelet poor plasma 24.7 s High 11.7-14.9 [facility] Work Phone: Office Visit: E coli bactere irene/diverticulitis/cystitis/enterovesc. fistulaon 08-07-2016 Adult depression screening assessment Adult depression screening assessment Invalid Interpretation Code [facility] Work Phone: PHQ-9 quick depression assessment panel [Reported.PHQ] Adult depression screening assessment Invalid Interpretation Code [facility] Work Phone: [phone] Tobacco smoking status NHIS Former smoker Invalid Interpretation Code [facility] Work Phone: [phone] Tobacco use CPHS Former smoker Invalid Interpretation Code [facility] Work Phone: Lab Report: Basic Metabolic Profile (BMP)on 08-06-2016 Creatinine 72.20 mL/min Invalid Interpretation Code [facility] Work Phone: Lab Report: Erythrocyte Sed Rateon 08-06-2016 Erythrocyte sedimentation rate 41 mm/h High 0-20 [facility] Work Phone: Replaced Document: (P) CBC W /Diff, Automatedon 08-06-2016 Absolute Neut 9.1 X10 3/UL High 2.0-7.7 [facility] Work Phone: [phone] Basophils/100 leukocytes 0.3 % Invalid Interpretation Code 0-1 [facility] Work Phone: Basophils/100 WBC (Bld) 0.3 % 0-1 [facility] Work Phone: [phone] Eosinophils/100 leukocytes 1.5 % Invalid Interpretation Code 0-5 [facility] Work Phone: Eosinophils/100 WBC (Bld) 1.5 % 0-5 [facility] Work Phone: [phone] Erythrocyte distribution width (RBC) [Ratio] 43.4 fL 35.1-43.9 [facility] Work Phone: [phone] Erythrocyte distribution width (RBC) [Ratio] 13.6 % 11.6-14.6 [facility] Work Phone: [phone] Erythrocyte distribution width Auto Ratio (RBC) 43.4 fL Invalid Interpretation Code 35.1-43.9 [facility] Work Phone: [phone] Erythrocytes (RBC) 5.09 10*6/uL Invalid Interpretation Code 4.6-6.2 [facility] Work Phone: Hematocrit (Bld) [Volume fraction] 45.0 % 40-54 [facility] Work Phone: [phone] Hematocrit (HCT) 45.0 % Invalid Interpretation Code 40-54 [facility] Work Phone: Hemoglobin (HGB) 15.3 g/dL Invalid Interpretation Code 13.0-16.5 [facility] Work Phone: Immature granulocytes (Bld) [#/Vol] 0.200 % Invalid Interpretation Code 0.0-0.9 [facility] Work Phone: [phone] immature granulocytes, percentage of total cells, blood 0.200 % Invalid Interpretation Code 0.0-0.9 [facility] Work Phone: Immature granulocytes/100 WBC (Bld) 0.200 % Invalid Interpretation Code 0.0-0.9 [facility] Work Phone: [phone] Lymphocytes 1.40 X10 3/UL Invalid Interpretation Code 0.83-4.51 [facility] Work Phone: Lymphocytes (Bld) [#/Vol] 1.40 X10 3/UL 0.83-4.51 [facility] Work Phone: [phone] Lymphocytes/100 leukocytes 11.4 % Low 19-41 [facility] Work Phone: Lymphocytes/100 WBC (Bld) 11.4 % Low 19-41 [facility] Work Phone: [phone] MCH 30.1 pg Invalid Interpretation Code 27.0-32.0 [facility] Work Phone: MCH (RBC) [Entitic mass] 30.1 pg 27.0-32.0 [facility] Work Phone: MCHC 34.0 G/GL Invalid Interpretation Code 32-36 [facility] Work Phone: MCHC (RBC) [Mass/Vol] 34.0 G/GL 32-36 [facility] Work Phone: [phone] MCV 88.4 fL Invalid Interpretation Code 80-94 [facility] Work Phone: MCV (RBC) [Entitic vol] 88.4 fL 80-94 [facility] Work Phone: [phone] Monocytes/100 leukocytes 12.2 % High 0-10 [facility] Work Phone: Monocytes/100 WBC (Bld) 12.2 % High 0-10 [facility] Work Phone: [phone] neutrophil count, blood 9.1 X10 3/UL High 2.0-7.7 [facility] Work Phone: Neutrophils (Bld) [#/Vol] 9.1 X10 3/UL High 2.0-7.7 [facility] Work Phone: [phone] Neutrophils Auto #/vol (Bld) 9.1 X10 3/UL High 2.0-7.7 [facility] Work Phone: [phone] Neutrophils/100 leukocytes 74.4 % High 47-70 [facility] Work Phone: Neutrophils/100 WBC (Bld) 74.4 % High 47-70 [facility] Work Phone: Platelet mean volume (Bld) [Entitic vol] 10.4 fL 6.2-12.0 [facility] Work Phone: Platelets 306 10*3/mm3 Invalid Interpretation Code 150-450 [facility] Work Phone: Platelets (Bld) [#/Vol] 306 10*3/mm3 150-450 [facility] Work Phone: [phone] PMV by Jojo 10.4 fL Invalid Interpretation Code 6.2-12.0 [facility] Work Phone: RBC (Bld) [#/Vol] 5.09 10*6/uL 4.6-6.2 [facility] Work Phone: [phone] RDW SD 43.4 fL Invalid Interpretation Code 35.1-43.9 [facility] Work Phone: [phone] RDW-CA 13.6 % Invalid Interpretation Code 11.6-14.6 [facility] Work Phone: [phone] red blood cell distribution width, size density 43.4 fL Invalid Interpretation Code 35.1-43.9 [facility] Work Phone: [phone] WBC (Bld) [#/Vol] 12.2 10*3/uL High 4.4-11.0 [facility] Work Phone: [phone] WBC (Leukocytes) 12.2 10*3/uL High 4.4-11.0 [facility] Work Phone: Lab Report: Lipid Profileon 05-10-2016 Cholesterol 205 mg/dL High 200 [facility] Work Phone: HDL Cholesterol 34 mg/dL Low [facility] Work Phone: LDL Cholesterol 141 mg/dL High 0-130 [facility] Work Phone: Triglyceride 150 mg/dL Invalid Interpretation Code [facility] Work Phone: very low density lipoproteins 30 mg/dL Invalid Interpretation Code 5-40 [facility] Work Phone: Office Visit: [facility] 05-10-20 16 Dietary management education, guidance, and counseling (procedure) yes Invalid Interpretation Code [facility] Work Phone: Lab Report: (P) Lyme Screen W/Reflex WBon 09-17-2015 Borrelia burgdorferi (Lyme Disease,) DNA 1.07 High 0.00-0.90 [facility] Work Phone: Lab Report: Lyme Screen W/Re flex WBon 09-17-2015 LYME DISEASE INTERPRETATION REF LAB Invalid Interpretation Code [facility] Work Phone: LYME SCN INTERP REF LAB Invalid Interpretation Code [facility] Work Phone: [phone] Lab Report: Rapid Plasmin Re agin (RPR)on 09-17-2015 Reagin Ab VDRL Qn (S) NONREACTIVE Invalid Interpretation Code NONREACTIVE [facility] Work Phone: [phone] Reagin antibody presence NONREACTIVE Invalid Interpretation Code NONREACTIVE [facility] Work Phone: Microbiology: Culture, Blood (WB)on 09-17-2015 Bacteria culture BCNo growth in 5 days. Invalid Interpretation Code [facility] Work Phone: Microbiology: Culture, Wound on 09-16-2015 CUW . Invalid Interpretation Code [facility] Work Phone: [phone] wound culture . Invalid Interpretation Code [facility] Work Phone: Replaced Document: (P) SAUL w / Reflex Mult Confirmon 09-15-2015 SAUL Titer Negative Invalid Interpretation Code Negative [facility] Work Phone: Nuclear Ab IA Qn (S) Negative Invalid Interpretation Code Negative [facility] Work Phone: [phone] Clinical Lists Updateon 09-02 Alanine aminotransferase (ALT) 60 U/L Invalid Interpretation Code [facility] Work Phone: Alkaline phosphatase (ALP) 103 U/L Invalid Interpretation Code [facility] Work Phone: ALP (Bld) [Catalytic activity/Vol] 103 U/L Invalid Interpretation Code [facility] Work Phone: [phone] Aspartate aminotransferase (AST) 34 U/L Invalid Interpretation Code [facility] Work Phone: Bilirubin (total) 0.9 mg/dL Invalid Interpretation Code [facility] Work Phone: Clinical Lists Updateon 09-02 Left ventricular Ejection fraction 53 % Invalid Interpretation Code [facility] Work Phone: Lab Report: CRPon 09-13-2015 C reactive protein (CRP) 4.71 mg/dL High Units converted. See lab report for original value. [facility] Work Phone: Lab Report: Magnesiumon 09-02 Magnesium 1.9 mg/dL Invalid Interpretation Code 1.8-2.4 [facility] Work Phone: Lab Report: CBC W/Diff, Auto matedon 09-11-2015 complete blood count (CBC), comments SLIDE SCANNED Invalid Interpretation Code [facility] Work Phone: Pathologist (cervix/vaginal) May foll Invalid Interpretation Code [facility] Work Phone: SMEAR COMMENT SLIDE SCANNED Invalid Interpretation Code [facility] Work Phone: [phone] Lab Report: Liver Profileon 09-11-2015 Albumin 3.5 g/dL Invalid Interpretation Code 3.4-5.0 [facility] Work Phone: Bilirubin (direct) 0.17 mg/dL Invalid Interpretation Code 0.00-0.30 [facility] Work Phone: Globulin 4.2 g/dL High 2.3-3.5 [facility] Work Phone: Globulin (S) [Mass/Vol] 4.2 g/dL High 2.3-3.5 [facility] Work Phone: [phone] Protein 7.7 g/dL Invalid Interpretation Code 6.4-8.2 [facility] Work Phone: Lab Report: Rheumatoid Facto krishan 09-11-2015 rheumatoid factor < 10.0 Invalid Interpretation Code <15 [facility] Work Phone: Replaced Document: Urinalysi s, Completeon 09-11-2015 Albumin Ql (U) 15 High Negative [facility] Work Phone: [phone] Bilirubin Ql (U) Negative Invalid Interpretation Code Negative [facility] Work Phone: [phone] Ketones (U) [Mass/Vol] Negative Invalid Interpretation Code Negative [facility] Work Phone: [phone] Mucus Ql (Urine sed) RARE [facility] Work Phone: [phone] NITRITE UR Negative Invalid Interpretation Code Negative [facility] Work Phone: [phone] Nitrite Urine Negative Invalid Interpretation Code Negative [facility] Work Phone: [phone] Occult Blood, urine 10 High Negative [facility] Work Phone: [phone] OCCULT BLOOD-UR 10 High Negative [facility] Work Phone: [phone] pH (U) 5.0 [pH] 5.0 - 8.0 [facility] Work Phone: [phone] specific gravity, urine 1.020 Invalid Interpretation Code 1.002-1.030 [facility] Work Phone: [phone] Urine, bacteria in sediment RARE /hpf Invalid Interpretation Code None Seen [facility] Work Phone: [phone] Urine, bilirubin presence Negative Invalid Interpretation Code Negative [facility] Work Phone: [phone] Urine, clarity Sl. Cloudy Invalid Interpretation Code Clear [facility] Work Phone: [phone] Urine, color Yellow Invalid Interpretation Code Yellow [facility] Work Phone: [phone] Urine, epithelial cells in sediment 0 SEEN Invalid Interpretation Code 0-5 [facility] Work Phone: [phone] Urine, erythrocytes in sediment by volume 0-5 SEEN Invalid Interpretation Code 0-5 [facility] Work Phone: [phone] Urine, glucose presence Normal mg/dl Invalid Interpretation Code Normal [facility] Work Phone: [phone] Urine, ketones presence Negative Invalid Interpretation Code Negative [facility] Work Phone: [phone] Urine, leukocyte esterase presence Negative Invalid Interpretation Code Negative [facility] Work Phone: [phone] Urine, mucus presence in sediment RARE Invalid Interpretation Code [facility] Work Phone: [phone] Urine, pH 5.0 [pH] Invalid Interpretation Code 5.0 - 8.0 [facility] Work Phone: Urine, protein 15 mg/dL High Negative [facility] Work Phone: [phone] UROBILI Normal mg/dl Invalid Interpretation Code Normal [facility] Work Phone: [phone] urobilinogen, urine, by dipstick Normal mg/dl Invalid Interpretation Code Normal [facility] Work Phone: WBC 0 SEEN Invalid Interpretation Code 0-5 [facility] Work Phone: [phone] WBC (Bld) [#/Vol] 0 SEEN 0-5 [facility] Work Phone: [phone] WBC (Leukocytes) 0 SEEN Invalid Interpretation Code 0-5 [facility] Work Phone: Office Visit: 6 month F/U, W ER F/Uon 06-30-2015 Tobacco smoking status NHIS Never Invalid Interpretation Code [facility] Work Phone: Microbiology: Culture, Urine on 06-17-2015 CUUR Urine CultureCulture exhibits no growth. Invalid Interpretation Code [facility] Work Phone: [phone] GE use only - for [employer] import when terms are not otherwise specified Urine CultureCulture exhibits no growth. Invalid Interpretation Code [facility] Work Phone: Lab Report: Comprehensive Me tabolic Profilon 06-15-2015 Albumin/Globulin Ratio 0.8 {ratio} Low 0.9-2.4 [facility] Work Phone: Lab Report: Lactic Acidon Lactate 1.3 mmol/L Invalid Interpretation Code 0.4-2.0 [facility] Work Phone: Lab Report: Partial Thrombop last Timeon 06-15-2015 aPTT 45.1 s High 24.1-36.2 [facility] Work Phone: Office Visit: [facility] 04-14-20 15 General cardiovascular disease 10Y risk [#] [place].D'Agostino 27 % Invalid Interpretation Code [facility] Work Phone: Replaced Document: Midmark E CG Observationson 04-14-2015 BUN (urea nitrogen) Sinus Rhythm -Right bundle branch block. ABNORMAL Invalid Interpretation Code [facility] Work Phone: EKG QRS axis 24 deg Invalid Interpretation Code [facility] Work Phone: P Kimper 90 deg Invalid Interpretation Code [facility] Work Phone: P wave axis, electrocardiogram 90 deg Invalid Interpretation Code [facility] Work Phone: KS Interval 188 ms Invalid Interpretation Code [facility] Work Phone: KS interval, electrocardiogram 188 ms Invalid Interpretation Code [facility] Work Phone: Pulse (Heart Rate) 69 /min Invalid Interpretation Code [facility] Work Phone: QRS axis, electrocardiogram 24 deg Invalid Interpretation Code [facility] Work Phone: QRS Duration 150 ms Invalid Interpretation Code [facility] Work Phone: QRS duration, electrocardiogram 150 ms Invalid Interpretation Code [facility] Work Phone: QT Interval new path ms Invalid Interpretation Code [facility] Work Phone: QT interval, electrocardiogram new path ms Invalid Interpretation Code [facility] Work Phone: T Kimper 41 deg Invalid Interpretation Code [facility] Work Phone: T wave axis, electrocardiogram 41 deg Invalid Interpretation Code [facility] Work Phone: Urea nitrogen [Mass/Vol] Sinus Rhythm -Right bundle branch block. ABNORMAL [facility] Work Phone: Office Visiton 10-12-2014 cardiac risk group B Invalid Interpretation Code [facility] Work Phone: Lab Report: B12on 08-27-2013 Cobalamin (Vitamin B12) [Mass/Vol] 794 pg/mL Normal 211-911 [facility] Work Phone: vitamin b12, serum 794 pg/mL Normal 211-911 [facility] Work Phone: Lab Report: CBCDon 4 Absolute Neutrophil count 8.8 X10 3/UL High 2.0-7.7 [facility] Work Phone: ANC 8.8 X10 3/UL High 2.0-7.7 [facility] Work Phone: [phone] Lab Report: TSHon 08-26-2013 Thyroid stimulating hormone (TSH) 2.26 u[iU]/mL Normal 0.358-3.74 [facility] Work Phone: Lab Report: T4on 12-18-2011 Thyroxine (T4) 8.1 ug/dL Normal 4.5-12.1 [facility] Work Phone: Replaced Document: Giovannimark E CG Observationson 12-11-2011 Pulse (Heart Rate) 446 ms Invalid Interpretation Code [facility] Work Phone: Vital Signs Date Time Vital Sign Value Performing Clinician Facility 08-10-2023 13:30-0500 Diastolic blood pressure 57 mm[Hg] Wiley Covington MD Work Phone: [facility] 08-10-2023 13:30-0500 Heart rate 77 /min Wiley Covington MD Work Phone: [facility] 08-10-2023 13:30-0500 Respiratory rate 20 /min Wiley Covington MD Work Phone: [facility] 08-10-2023 13:30-0500 SaO2% (BldA) [Mass fraction] 94 % Wiley Covington MD Work Phone: [facility] 08-10-2023 13:30-0500 Systolic blood pressure 113 mm[Hg] Wiley Covington MD Work Phone: [facility] 06-19-2023 10:31-0500 Body temperature 98.01 [degF] Wiley Covington MD Work Phone: [facility] 06-19-2023 10:31-0500 Diastolic blood pressure 56 mm[Hg] Wiley Covington MD Work Phone: [facility] 06-19-2023 10:31-0500 Heart rate 55 /min Wiley Covington MD Work Phone: [facility] 06-19-2023 10:31-0500 Respiratory rate 18 /min Wiley Covington MD Work Phone: [facility] 06-19-2023 10:31-0500 SaO2% (BldA) [Mass fraction] 100 % Wiley Covington MD Work Phone: [facility] 06-19-2023 10:31-0500 Systolic blood pressure 116 mm[Hg] Wiley Covington MD Work Phone: [facility] 06-17-2023 05:49-0500 Body mass index (BMI) [Ratio] 28.84 kg/m2 Wiley Covington MD Work Phone: [facility] 06-17-2023 05:49-0500 Body weight 96.45 kg Wiley Covington MD Work Phone: [facility] Comment on above: Standing 06-06-2023 23:07-0500 Body height 182.9 cm Wiley Covington MD Work Phone: [facility] Comment on above: estimated 11-08-2016 07:36-0400 BMI (Body Mass Index) 31.35 kg/m2 [facility] Work Phone: 11-08-2016 07:36-0400 BP Diastolic 68 mm[Hg] [facility] Work Phone: 11-08-2016 07:36-0400 BP Systolic 130 mm[Hg] [facility] Work Phone: 11-08-2016 07:36-0400 Height 187.96 cm Renee [facility] Work Phone: 11-08-2016 07:36-0400 Pulse (Heart Rate) 76 /min Renee Jade RN [facility] Work Phone: 11-08-2016 07:36-0400 Respiratory Rate 20 /min Renee Jade RN [facility] Work Phone: 11-08-2016 07:36-0400 Weight 110.77 kg Renee Jade RN [facility] Work Phone: 09-27-2016 09:41-0400 BMI (Body Mass Index) 30.96 kg/m2 Jovana Signs MD [facility] Work Phone: 09-27-2016 09:41-0400 Body Temperature 97.5 [degF] Jovana Signs MD [facility] Work Phone: 09-27-2016 09:41-0400 Body weight 109.41 kg Renee Jade RN [facility] Work Phone: 09-27-2016 09:41-0400 BP Diastolic 71 mm[Hg] Jovana Signs MD [facility] Work Phone: 09-27-2016 09:41-0400 BP Systolic 113 mm[Hg] Jovana Signs MD [facility] Work Phone: 09-27-2016 09:41-0400 Height 187.96 cm Jovana Signs MD [facility] Work Phone: 09-27-2016 09:41-0400 Pulse (Heart Rate) 63 /min Jovana Signs MD [facility] Work Phone: 09-27-2016 09:41-0400 Pulse Oximetry 97 % Jovana Signs MD [facility] Work Phone: 09-27-2016 09:41-0400 Respiratory Rate 20 /min Jovana Signs MD [facility] Work Phone: 09-27-2016 09:41-0400 Weight 109.41 kg Jovana Signs MD [facility] Work Phone: 08-06-2016 15:38-0500 Body surface area Derived from formula 72.20 mL/min Renee Jade RN [facility] Work Phone: 05-10-2016 13:44-0500 BSA (Body Surface Area) 2.34 m2 Jovana Signs MD [facility] Work Phone: 04-14-2015 13:10-0500 Heart rate 69 /min Renee Jade RN [facility] Work Phone: 12-11-2011 13:40-0400 Heart rate 446 ms Renee Jade RN [facility] Work Phone: 06-12-2011 13:43-0500 BP Diastolic 62 mm[Hg] Jovana Signs MD [facility] Work Phone: 06-12-2011 13:43-0500 BP Systolic 130 mm[Hg] Jovana Signs MD [facility] Work Phone: Encounters Encounter Date Encounter Type Care Provider Facility Start: 12-16-2024 ambulatory Kuldeep H Roof Facility:[facility] Start: 11-10-2024 End: 11-10-2024 ambulatory [facility] [place]: 11-10-2024 End: 11-10-2024 ambulatory Kuldeep H Roof Facility:[facility] Start: 10-11-2024 End: 10-11-2024 Emergency department patient visit Amor Carmona Facility:[facility] Start: 09-26-2024 ambulatory [facility]: [facility] Start: 08-25-2024 ambulatory Louie YousifGrant Facility: [facility] Start: 08-23-2024 ambulatory Krys L Jorgito [place] Start: 08-23-2024 End: 08-27-2024 Evaluation and management of inpatient Krys L White Facility:[facility] Start: 07-11-2024 End: 07-11-2024 ambulatory [facility] Facility:[facility] Start: 06-17-2024 [facility] Start: 05-09-2024 End: 05-09-2024 Emergency department patient visit Jeancarlos Ritter Facility:[facility] Start: 03-04-2024 ambulatory Kuldeep H Roof Facility:[facility] Start: 03-03-2024 Encounter for genera l adult medical examination without abnormal findings Cedrick Willingham [facility] Start: 02-22-2024 End: 02-22-2024 ambulatory Kuldeep Austin Facility:[facility] Start: 02-13-2024 End: 02-13-2024 ambulatory Cedrick Willingham Facility:[facility] Start: 02-12-2024 ambulatory Louie Burns Facility: [facility] Start: 01-24-2024 ambulatory Louie Burns Facility: [facility] Start: 01-22-2024 ambulatory Nagapradeshonna Nagsayra Fa cility:[facility] Start: 01-21-2024 ambulatory Zhanglanre Florentino Facility: [facility] Start: 01-21-2024 End: 01-30-2024 Evaluation and management of inpatient Zhang Chadd Facility:[facility] Start: 01-19-2024 End: 01-19-2024 Emergency department patient visit Braden Burns Facility:[facility] Start: 01-18-2024 End: 01-18-2024 ambulatory Louie Burns Facility:[facility] Start: 01-18-2024 End: 01-18-2024 ambulatory Tex GODOY Facility:[facility] Start: 11-29-2023 ambulatory ASHA T BREDEHOEFT Facil ity:[facility] Start: 08-16-2023 ambulatory ASHA T BREDEHOEFT Facil ity:[facility] Start: 08-10-2023 ambulatory LOUIE BURNS Facilit y:[facility] Start: 08-10-2023 End: 08-10-2023 Subsequent hospital visit by physician Wiley Covington MD Work Phone: [facility] Comment on above: Arrived Start: 06-06-2023 End: 06-19-2023 Evaluation and management of inpatient Deangelo Ley MD Work Phone: Comment on above: Endocarditis Start: 04-20-2021 ambulatory LOUIE BURNS Facili ty:[facility] Start: 03-29-2021 End: 04-05-2021 Evaluation and management of inpatient LOUIE Appiah GRANT Facility:[facility] Start: 03-29-2021 End: 03-29-2021 ambulatory LUIS DYER Facility:[facility] Start: 03-24-2021 ambulatory LOUIE BURNS Facili ty:[facility] Start: 03-23-2021 ambulatory KULDEEP PAINTING Facility: [facility] Start: 03-22-2021 ambulatory KULDEEP PAINTING Facility: [facility] Start: 03-19-2021 ambulatory LUIS GLASER Facility :[facility] Start: 03-18-2021 ambulatory LUIS GLASER Facility :[facility] Start: 03-16-2021 ambulatory UNKNOWN PROVIDER Facili ty:[facility] Start: 03-14-2021 ambulatory UNKNOWN PROVIDER Facili ty:[facility] Start: 03-13-2021 ambulatory UNKNOWN PROVIDER Facili ty:[facility] Start: 03-13-2021 End: 03-29-2021 Evaluation and management of inpatient LUIS DYER Facility:[facility] Start: 03-12-2021 ambulatory UNKNOWN PROVIDER Facili ty:[facility] Start: 09-28-2016 End: 09-29-2016 Ambulatory RYAN CLARKCHARBEL Facility:[facility] Procedures Date Procedure Procedure Detail Performing Clinician Start: 06-17-2024 Follow-up visit Follow-up DELFINA CHAPMAN Start: 08-10-2023 Transesophageal echocardiography Wiley Covington MD Work Phone: Start: 06-19-2023 CONTINUOUS CARDIAC MONITORING STRIP Other Other Start: 06-19-2023 Prothrombin time Heike Milan MD Work Phone: Start: 06-18-2023 CONTINUOUS CARDIAC MONITORING STRIP Other Other Start: 06-18-2023 Assay of magnesium Wiley Covington MD Work Phone: Start: 06-17-2023 Thromboplastin time partial plasma/whole blood Heike Milan MD Work Phone: Start: 06-17-2023 Blood count platelet automated Heike Milan MD Work Phone: Start: 06-17-2023 CONTINUOUS CARDIAC MONITORING STRIP Other Other Start: 06-17-2023 Creatinine blood Wiley Covignton MD Work Phone: Start: 06-16-2023 Thromboplastin time partial plasma/whole blood Heike Milan MD Work Phone: Start: 06-16-2023 Thromboplastin time partial plasma/whole blood Heike Milan MD Work Phone: Start: 06-16-2023 Prothrombin time Heike Milan MD Work Phone: Start: 06-16-2023 Thromboplastin time partial plasma/whole blood Heike Milan MD Work Phone: Start: 06-15-2023 Blood count platelet automated Heike Milan MD Work Phone: Start: 06-15-2023 Assay of magnesium Shirley M Rossi [employer] Work Phone: Start: 06-14-2023 CONTINUOUS CARDIAC MONITORING STRIP Other Other Start: 06-14-2023 Thromboplastin time partial plasma/whole blood Heike Milan MD Work Phone: Start: 06-14-2023 CONTINUOUS CARDIAC MONITORING STRIP Other Other Start: 06-14-2023 Radiologic exam chest single view Wiley Covington MD Work Phone: Start: 06-14-2023 Assay of magnesium Shirley M Rossi [employer] Work Phone: Start: 06-13-2023 CONTINUOUS CARDIAC MONITORING STRIP Other Other Start: 06-13-2023 Thromboplastin time partial plasma/whole blood Heike Milan MD Work Phone: Start: 06-13-2023 Drug screen quantitative gentamicin Haley Mahmood [facility] Start: 06-13-2023 Blood count platelet automated Heike Milan MD Work Phone: Start: 06-13-2023 Thromboplastin time partial plasma/whole blood Heike Milan MD Work Phone: Start: 06-13-2023 Assay of magnesium Shirley M Rossi [employer] Work Phone: Start: 06-12-2023 Drug screen quantitative gentamicin Rigoberto Landon [facility] Start: 06-12-2023 Thromboplastin time partial plasma/whole blood Heike Milan MD Work Phone: Start: 06-12-2023 Thromboplastin time partial plasma/whole blood Heike Milan MD Work Phone: Start: 06-12-2023 Albumin serum plasma/whole blood Heike Milan MD Work Phone: Start: 06-11-2023 Thromboplastin time partial plasma/whole blood Heike Milan MD Work Phone: Start: 06-11-2023 CONTINUOUS CARDIAC MONITORING STRIP Other Other Start: 06-11-2023 Blood count platelet automated Heike Milan MD Work Phone: Start: 06-11-2023 Culture bacterial blood aerobic w/id isolates Heike Milan MD Work Phone: Start: 06-11-2023 Culture bacterial blood aerobic w/id isolates Heike Milan MD Work Phone: Start: 06-11-2023 Thromboplastin time partial plasma/whole blood Heike Milan MD Work Phone: Start: 06-11-2023 Assay of magnesium Katiana Cabrera MD Work Phone: Start: 06-10-2023 Thromboplastin time partial plasma/whole blood Heike Milan MD Work Phone: Start: 06-10-2023 Drug screen quantitative gentamicin Kelvin Luis Angel Pitts [facility] Work Phone: Start: 06-10-2023 Thromboplastin time partial plasma/whole blood Heike Milan MD Work Phone: Start: 06-10-2023 Thromboplastin time partial plasma/whole blood Heike Milan MD Work Phone: Start: 06-10-2023 Assay of magnesium Katiana Jailene Cabrera MD Work Phone: Start: 06-09-2023 Blood count platelet automated Heike Milan MD Work Phone: Start: 06-09-2023 CONTINUOUS CARDIAC MONITORING STRIP Other Other Start: 06-09-2023 Thromboplastin time partial plasma/whole blood Heike Milan MD Work Phone: Start: 06-09-2023 Assay of magnesium Katiana Cabrera MD Work Phone: Start: 06-08-2023 Thromboplastin time partial plasma/whole blood Heike Milan MD Work Phone: Start: 06-08-2023 Thromboplastin time partial plasma/whole blood Heike Milan MD Work Phone: Start: 06-08-2023 Culture bacterial blood aerobic w/id isolates Heike Milan MD Work Phone: Start: 06-08-2023 Thromboplastin time partial plasma/whole blood Heike Milan MD Work Phone: Start: 06-08-2023 Assay of magnesium Hekie Milan MD Work Phone: Start: 06-08-2023 Drug screen quantitative gentamicin Frannie J Vulvara [facility] Start: 06-07-2023 Thromboplastin time partial plasma/whole blood Heike Milan MD Work Phone: Start: 06-07-2023 Thromboplastin time partial plasma/whole blood Heike Milan MD Work Phone: Start: 06-07-2023 Prothrombin time Katiana Cabrera MD Work Phone: Start: 06-06-2023 Radiologic exam chest single view Katiana Cabrera MD Work Phone: Start: 06-06-2023 BLOOD CULTURE IDENTIFICATION PANEL Katiana Cabrera MD Work Phone: Start: 06-06-2023 Culture bacterial blood aerobic w/id isolates Katiana Cabrera MD Work Phone: Start: 06-06-2023 Assay of magnesium Katiana Cabrera MD Work Phone: Start: 06-06-2023 CBC AND ELECTRONIC DIFF Katiana Cabrera MD Work Phone: Start: 06-06-2023 Complete blood count with white cell differential, automated Katiana Cabrera MD Work Phone: Start: 06-06-2023 EXTRA SST GOLD TOP Katiana Cabrera MD Work Phone: Start: 06-06-2023 EXTRA TUBES Katiana Cabrera MD Work Phone: Start: 06-06-2023 Ecg routine ecg w/least 12 lds w/i&r Katiana Cabrera MD Work Phone: Start: 11-08-2016 End: 11-08-2016 Follow Up Appt Other Renee krishnamurthy PA-C Work Phone: Start: 11-08-2016 End: 11-08-2016 INR in Platelet poor plasma by Coagulation assay Renee Wylie PA-C Work Phone: Start: 11-08-2016 End: 11-08-2016 Coagulation factor induced.INR assay in platelet poor plasma Renee Wylie PA-C Work Phone: Start: 11-08-2016 End: 11-08-2016 Follow Up Appt Other Renee krishnamurthy PA-C Work Phone: Start: 09-27-2016 End: 09-27-2016 Documentation of current medications Renee Jade RN Start: 05-10-2016 End: 05-10-2016 Follow Up Appt 1 year Louie Dent Hedrick [employer] Start: 05-10-2016 End: 05-10-2016 Follow Up Appt 6 months Louie Dent Hedrick [employer] Start: 05-10-2016 End: 05-10-2017 INR in Platelet poor plasma by Coagulation assay Louie Dent Hedrick [employer] Start: 05-10-2016 End: 05-11-2016 Lipid 1996 panel - Serum or Plasma Louie Dent Hedrick [employer] Start: 05-10-2016 End: 05-10-2016 MMM Louie Jeffder [employer] Start: 05-10-2016 End: 05-10-2016 PFM Louie Hedrick [employer] Start: 05-10-2016 End: 05-10-2016 Dietary management education, guidance, and counseling Renee Jade RN Start: 05-10-2016 End: 05-10-2017 Coagulation factor induced.INR assay in platelet poor plasma Louie Hedrick [employer] Start: 05-10-2016 End: 05-10-2016 Follow Up Appt 1 year Louie Hedrick [employer] Start: 05-10-2016 End: 05-10-2016 Follow Up Appt 6 months Louie Hedrick [employer] Start: 05-10-2016 End: 05-11-2016 Lipid panel [AGGREGATE] Louie Hedrick [employer] Start: 05-10-2016 End: 05-10-2016 MMM Louie Hedrick [employer] Start: 05-10-2016 End: 05-10-2016 PFM Louie Hedrick [employer] Start: 11-08-2015 End: 11-08-2015 Follow Up Appt 6 months Markus Tran MD Start: 11-08-2015 End: 11-08-2015 MMM Markus Tran MD Start: 11-08-2015 End: 11-08-2015 Follow Up Appt 6 months Markus Tran MD Start: 11-08-2015 End: 11-08-2015 MMM Markus Tran MD Start: 11-05-2015 Replacement of aortic valve Aortic valve replacement Renee Jade RN Start: 11-05-2015 Replacement of aortic valve Aortic valve replacement Renee Jade RN Start: 09-11-2015 End: 09-11-2015 Urinalysis Renee Jade RN Start: 04-14-2015 End: 04-14-2015 *CBC with Differential Renee lucero PA-C Work Phone: Start: 04-14-2015 End: 04-15-2015 Documentation of current medications Renee Wylie PA-C Work Phone: Start: 04-14-2015 End: 04-14-2015 Ecg routine ecg w/least 12 lds w/i&r Renee Wylie PA-C Work Phone: Start: 04-14-2015 End: 04-14-2015 Follow Up Appt 6 months Renee main PA-C Work Phone: Start: 04-14-2015 End: 04-14-2015 INR in Platelet poor plasma by Coagulation assay Renee Wylie PA-C Work Phone: Start: 04-14-2015 End: 04-14-2015 PFM Renee Wylie PA-C Work Phone: Start: 04-14-2015 End: 04-14-2015 *CBC with Differential Renee lucero PA-C Work Phone: Start: 04-14-2015 End: 04-14-2015 Coagulation factor induced.INR assay in platelet poor plasma Renee Wylie PA-C Work Phone: Start: 04-14-2015 End: 04-15-2015 Documentation of current medications Renee Wylie PA-C Work Phone: Start: 04-14-2015 End: 04-14-2015 Electrocardiogram, complete Renee Vale PA-C Work Phone: Start: 04-14-2015 End: 04-14-2015 Follow Up Appt 6 months Renee main PA-C Work Phone: Start: 04-14-2015 End: 04-14-2015 PFM Renee Wylie PA-C Work Phone: Start: 10-12-2014 End: 05-03-2016 *Hepatic Function Panel Markus Tran MD Start: 10-12-2014 End: 10-13-2014 Documentation of current medications Markus Tran MD Start: 10-12-2014 End: 10-12-2014 Follow Up Appt 6 months Markus Tran MD Start: 10-12-2014 End: 05-03-2016 Lipid 1996 panel - Serum or Plasma Markus Tran MD Start: 10-12-2014 End: 10-12-2014 CRYSTAL Tran MD Start: 10-12-2014 End: 05-03-2016 *Hepatic Function Panel Markus Tran MD Start: 10-12-2014 End: 10-13-2014 Documentation of current medications Markus Tran MD Start: 10-12-2014 End: 10-12-2014 Follow Up Appt 6 months Markus Tran MD Start: 10-12-2014 End: 05-03-2016 Lipid panel [AGGREGATE] Markus Tran MD Start: 10-12-2014 End: 10-12-2014 [facility] Markus Tran MD Start: 02-23-2014 End: 02-23-2014 Follow Up Appt 6 months Renee main PA-C Work Phone: Start: 02-23-2014 End: 02-23-2014 INR in Platelet poor plasma by Coagulation assay Renee Wylie PA-C Work Phone: Start: 02-23-2014 End: 02-23-2014 PFM Renee Wylie PA-C Work Phone: Start: 02-23-2014 End: 02-23-2014 Coagulation factor induced.INR assay in platelet poor plasma Renee Wylie PA-C Work Phone: Start: 02-23-2014 End: 02-23-2014 Follow Up Appt 6 months Renee main PA-C Work Phone: Start: 02-23-2014 End: 02-23-2014 PFM Renee Wylie PA-C Work Phone: Start: 08-20-2013 End: 04-14-2015 *Hepatic Function Panel Markus Tran MD Start: 08-20-2013 End: 08-20-2013 Follow Up Appt 6 months Markus Tran MD Start: 08-20-2013 End: 04-14-2015 Lipid 1996 panel - Serum or Plasma Markus Tran MD Start: 08-20-2013 End: 08-20-2013 MMM Markus Tran MD Start: 08-20-2013 End: 04-14-2015 *Hepatic Function Panel Markus Tran MD Start: 08-20-2013 End: 08-20-2013 Follow Up Appt 6 months Markus Tran MD Start: 08-20-2013 End: 04-14-2015 Lipid panel [AGGREGATE] Markus Tran MD Start: 08-20-2013 End: 08-20-2013 MMM Markus Tran MD Start: 01-16-2013 End: 08-20-2013 Echocardiography Maruks Tran MD Start: 01-16-2013 End: 01-16-2013 Follow Up Appt 6 months Markus Tran MD Start: 01-16-2013 End: 08-20-2013 Follow Up Appt Other Markus Trna MD Start: 01-16-2013 End: 01-17-2013 INR in Platelet poor plasma by Coagulation assay Markus Tran MD Start: 01-16-2013 End: 01-16-2013 PFM Markus Tran MD Start: 01-16-2013 End: 01-17-2013 Coagulation factor induced.INR assay in platelet poor plasma Markus Tran MD Start: 01-16-2013 End: 08-20-2013 Echocardiography Markus Tran MD Start: 01-16-2013 End: 01-16-2013 Follow Up Appt 6 months Markus Tran MD Start: 01-16-2013 End: 08-20-2013 Follow Up Appt Other Markus Tran MD Start: 01-16-2013 End: 01-16-2013 PFM Markus Tran MD Start: 11-25-2012 End: 02-23-2014 INR in Platelet poor plasma by Coagulation assay Markus Tran MD Start: 11-25-2012 End: 02-23-2014 Coagulation factor induced.INR assay in platelet poor plasma Markus Tran MD Start: 09-18-2012 End: 08-20-2013 *Hepatic Function Panel Abhijeet Kee MD Start: 09-18-2012 End: 08-20-2013 Lipid 1996 panel - Serum or Plasma Abhijeet Kee MD Start: 09-18-2012 End: 08-20-2013 *Hepatic Function Panel Abhijeet Kee MD Start: 09-18-2012 End: 08-20-2013 Lipid panel [AGGREGATE] Abhijeet Kee MD Start: 06-10-2012 End: 06-21-2012 Echocardiography Abhijeet Kee MD Start: 06-10-2012 End: 06-10-2012 Follow Up Appt 6 months Abhijeet Kee MD Start: 06-10-2012 End: 06-21-2012 Echocardiography Abhijeet Kee MD Start: 06-10-2012 End: 06-10-2012 Follow Up Appt 6 months Abhijeet Kee MD Start: 04-04-2012 End: 06-10-2012 *Hepatic Function Panel Abihjeet Kee MD Start: 04-04-2012 End: 06-10-2012 Lipid 1996 panel - Serum or Plasma Abhijeet Kee MD Start: 04-04-2012 End: 06-10-2012 *Hepatic Function Panel Abhijeet Kee MD Start: 04-04-2012 End: 06-10-2012 Lipid panel [AGGREGATE] Abhijeet Kee MD Start: 02-26-2012 End: 06-06-2012 *Hepatic Function Panel Abhijeet eKe MD Start: 02-26-2012 End: 06-06-2012 *Hepatic Function Panel Abhijeet Kee MD Start: 12-11-2011 End: 12-18-2011 *BMP Abhijeet Kee MD Start: 12-11-2011 End: 12-18-2011 *CBC with Differential Abhijeet Kee MD Start: 12-11-2011 End: 12-18-2011 *Hepatic Function Panel Abhijeet Kee MD Start: 12-11-2011 End: 12-18-2011 Ct thorax w/contrast material Abhijeet Kee MD Start: 12-11-2011 End: 12-11-2011 Ecg routine ecg w/least 12 lds w/i&r Abhijeet Kee MD Start: 12-11-2011 End: 12-11-2011 Follow Up Appt 6 months Abhijeet Kee MD Start: 12-11-2011 End: 12-18-2011 Lipid 1996 panel - Serum or Plasma Abhijeet Kee MD Start: 12-11-2011 End: 12-18-2011 Magnesium [Mass/volume] in Serum or Plasma Abhijeet Kee MD Start: 12-11-2011 End: 12-18-2011 Thyrotropin [Units/volume] in Serum or Plasma Abhijeet Kee MD Start: 12-11-2011 End: 12-18-2011 Thyroxine (T4) [Mass/volume] in Serum or Plasma Abhijeet Kee MD Start: 12-11-2011 End: 12-18-2011 *BMP Abhijeet Kee MD Start: 12-11-2011 End: 12-18-2011 *CBC with Differential Abhijeet Kee MD Start: 12-11-2011 End: 12-18-2011 *Hepatic Function Panel Abhijeet Kee MD Start: 12-11-2011 End: 12-18-2011 Ct thorax w/dye Abhijeet Kee MD Start: 12-11-2011 End: 12-11-2011 Electrocardiogram, complete Abhijeet Kee MD Start: 12-11-2011 End: 12-11-2011 Follow Up Appt 6 months Abhijeet Kee MD Start: 12-11-2011 End: 12-18-2011 Lipid panel [AGGREGATE] Abhijeet Kee MD Start: 12-11-2011 End: 12-18-2011 Magnesium Abhijeet Kee MD Start: 12-11-2011 End: 12-18-2011 Thyroid stimulating hormone (TSH) Abhijeet Kee MD Start: 12-11-2011 End: 12-18-2011 Thyroxine (T4) Abhijeet Kee MD Start: 06-12-2011 End: 12-18-2011 *BMP Abhijeet Kee MD Start: 06-12-2011 End: 12-18-2011 *CBC with Differential Abhijeet Kee MD Start: 06-12-2011 End: 12-18-2011 *Hepatic Function Panel Abhijeet Kee MD Start: 06-12-2011 End: 06-29-2011 Echocardiography Abhijeet Kee MD Start: 06-12-2011 End: 06-12-2011 Follow Up Appt 6 months Abhijeet Kee MD Start: 06-12-2011 End: 12-18-2011 Lipid 1996 panel - Serum or Plasma Abhijeet Kee MD Start: 06-12-2011 End: 12-18-2011 *BMP Abhijeet Kee MD Start: 06-12-2011 End: 12-18-2011 *CBC with Differential Abhijeet Kee MD Start: 06-12-2011 End: 12-18-2011 *Hepatic Function Panel Abhijeet Kee MD Start: 06-12-2011 End: 06-29-2011 Echocardiography Abhijeet Kee MD Start: 06-12-2011 End: 06-12-2011 Follow Up Appt 6 months Abhijeet Kee MD Start: 06-12-2011 End: 12-18-2011 Lipid panel [AGGREGATE] Abhijeet Kee MD Plan of Treatment Date Care Activity Detail Author Start: 08-24-2023 End: 08-24-2023 Patient encounter procedure 08/24/2023 11:30 AM EDT Office Visit [facility] [address] [place], [place] [id number] Titi Sabillon MD (John) [address] [place] [phone] [facility] Start: 08-16-2023 End: 08-16-2023 Telemedicine consultation with patient 08/16/2023 10:30 AM EDT Telemedicine Infectious Diseases Care [facility] [address] [place] [phone] Asha Bundy MD [address] [place] [phone] [facility] Start: 08-02-2023 End: 08-02-2023 Patient encounter procedure 08/02/2023 10:00 AM EST Office Visit Infectious Diseases Care [facility] [address] [place] [phone] Asha Bundy MD [address] [place] [phone] Infectious Diseases Care [facility] Start: 07-30-2023 End: 07-30-2023 Patient encounter procedure 07/30/2023 10:00 AM EST Office Visit [facility] [address] [place] [address] [phone] Titi Sabillon MD (John) [address] [place] [phone] [facility] Start: 07-26-2023 End: 07-26-2023 Patient encounter procedure 07/26/2023 11:00 AM EST Appointment Cardiovascular Imaging Lab [facility] [address] [place] [phone] Wiley Covington MD [address] [place] [phone] Cardiovascular Imaging Lab [facility] Start: 07-23-2023 End: 08-10-2023 Transesophageal echocardiography ECHOCARDIOGRAM TRANSESOPHAGEAL (FER) Echocardiography Routine Acute bacterial endocarditis Expected: 07/23/2023, Expires: 08/10/2023 [facility] Work Phone: Comment on above: Expected: 07/23/2023, Expires: 4 Start: 06-15-2023 End: 06-15-2024 Transesophageal echocardiography ECHOCARDIOGRAM TRANSESOPHAGEAL (FER) Echocardiography Routine Acute bacterial endocarditis Expected: 06/15/2023, Expires: 06/15/2024 [facility] Comment on above: Expected: 06/15/2023, Expires: 5 Start: 05-25-2017 End: 05-25-2017 Appointment Appointment [facility] Work Phone: Start: 05-14-2017 End: 05-14-2017 Appointment Appointment [facility] Work Phone: Start: 05-14-2017 End: 05-14-2017 Appointment Appointment [facility] Work Phone: Start: 05-10-2017 End: 05-11-2016 *Hepatic Function Panel *Hepatic Function Panel [facility] Work Phone: Start: 05-10-2017 End: 05-11-2016 Lipid panel [AGGREGATE] *Lipid Profile CC PCP [facility] Work Phone: Start: 05-10-2017 End: 05-11-2016 *Hepatic Function Panel *Hepatic Function Panel [facility] Work Phone: Start: 05-10-2017 End: 05-11-2016 Lipid panel [AGGREGATE] *Lipid Profile CC PCP [facility] Work Phone: Start: 11-08-2016 End: 11-08-2016 Follow Up Appt Other Follow Up Appt Other [facility] Work Phone: Start: 11-08-2016 End: 11-08-2016 INR Coag RelTime (PPP) *PT/INR - Standing Order [facility] Work Phone: Start: 11-08-2016 End: 11-08-2016 Appointment Appointment [facility] Work Phone: Start: 11-08-2016 End: 11-08-2016 Appointment Appointment [facility] Work Phone: Start: 11-08-2016 End: 11-08-2016 Coagulation factor induced.INR assay in platelet poor plasma *PT/INR - Standing Order [facility] Work Phone: Start: 11-08-2016 End: 11-08-2016 Follow Up Appt Other Follow Up Appt Other [facility] Work Phone: Start: 05-10-2016 End: 05-10-2016 Follow Up Appt 1 year Follow Up Appt 1 year [facility] Work Phone: Start: 05-10-2016 End: 05-10-2016 Follow Up Appt 6 months Follow Up Appt 6 months [facility] Work Phone: Start: 05-10-2016 End: 09-25-2016 INR Coag RelTime (PPP) [facility] Work Phone: Start: 05-10-2016 End: 05-11-2016 Lipid panel [AGGREGATE] *Lipid Profile CC PCP [facility] Work Phone: Start: 05-10-2016 End: 05-10-2016 MMM MMM [facility] Work Phone: Start: 05-10-2016 End: 05-10-2016 PFM PFM [facility] Work Phone: Start: 05-10-2016 End: 09-25-2016 Coagulation factor induced.INR assay in platelet poor plasma [facility] Work Phone: Start: 05-10-2016 End: 05-10-2016 Follow Up Appt 1 year Follow Up Appt 1 year [facility] Work Phone: Start: 05-10-2016 End: 05-10-2016 Follow Up Appt 6 months Follow Up Appt 6 months [facility] Work Phone: Start: 05-10-2016 End: 05-11-2016 Lipid panel [AGGREGATE] *Lipid Profile CC PCP [facility] Work Phone: Start: 05-10-2016 End: 05-10-2016 MMM MMM [facility] Work Phone: Start: 05-10-2016 End: 05-10-2016 PFM PFM [facility] Work Phone: Start: 11-08-2015 End: 11-08-2015 Follow Up Appt 6 months Follow Up Appt 6 months [facility] Work Phone: Start: 11-08-2015 End: 11-08-2015 MMM MMM [facility] Work Phone: Start: 11-08-2015 End: 11-08-2015 Follow Up Appt 6 months Follow Up Appt 6 months [facility] Work Phone: Start: 11-08-2015 End: 11-08-2015 MMM MMM [facility] Work Phone: Start: 06-08-2015 Pneumococcal vaccination PNEUMOCOCCAL VACCINE SERIES (2 of 2 - PCV) [facility] Start: 04-14-2015 End: 04-14-2015 *CBC with Differential *CBC with Differential [facility] Work Phone: Start: 04-14-2015 End: 04-14-2015 Ecg routine ecg w/least 12 lds w/i&r EKG (In office) [facility] Work Phone: Start: 04-14-2015 End: 04-14-2015 Follow Up Appt 6 months Follow Up Appt 6 months [facility] Work Phone: Start: 04-14-2015 End: 04-14-2015 INR Coag RelTime (PPP) *PT/INR - Standing Order [facility] Work Phone: Start: 04-14-2015 End: 04-14-2015 PFM PFM [facility] Work Phone: Start: 04-14-2015 End: 04-14-2015 *CBC with Differential *CBC with Differential [facility] Work Phone: Start: 04-14-2015 End: 04-14-2015 Coagulation factor induced.INR assay in platelet poor plasma *PT/INR - Standing Order [facility] Work Phone: Start: 04-14-2015 End: 04-14-2015 Electrocardiogram, complete EKG (In office) [facility] Work Phone: Start: 04-14-2015 End: 04-14-2015 Follow Up Appt 6 months Follow Up Appt 6 months [facility] Work Phone: Start: 04-14-2015 End: 04-14-2015 PFM PFM [facility] Work Phone: Start: 10-12-2014 End: 05-03-2016 *Hepatic Function Panel *Hepatic Function Panel [facility] Work Phone: Start: 10-12-2014 End: 10-12-2014 Follow Up Appt 6 months Follow Up Appt 6 months [facility] Work Phone: Start: 10-12-2014 End: 05-03-2016 Lipid panel [AGGREGATE] *Lipid Profile CC PCP [facility] Work Phone: Start: 10-12-2014 End: 10-12-2014 MMM MMM [facility] Work Phone: Start: 10-12-2014 End: 05-03-2016 *Hepatic Function Panel *Hepatic Function Panel [facility] Work Phone: Start: 10-12-2014 End: 10-12-2014 Follow Up Appt 6 months Follow Up Appt 6 months [facility] Work Phone: Start: 10-12-2014 End: 05-03-2016 Lipid panel [AGGREGATE] *Lipid Profile CC PCP [facility] Work Phone: Start: 10-12-2014 End: 10-12-2014 MMM MMM [facility] Work Phone: Start: 02-23-2014 End: 02-23-2014 Follow Up Appt 6 months Follow Up Appt 6 months [facility] Work Phone: Start: 02-23-2014 End: 02-23-2014 INR Coag RelTime (PPP) *PT/INR - Standing Order [facility] Work Phone: Start: 02-23-2014 End: 02-23-2014 PFM PFM [facility] Work Phone: Start: 02-23-2014 End: 02-23-2014 Coagulation factor induced.INR assay in platelet poor plasma *PT/INR - Standing Order [facility] Work Phone: Start: 02-23-2014 End: 02-23-2014 Follow Up Appt 6 months Follow Up Appt 6 months [facility] Work Phone: Start: 02-23-2014 End: 02-23-2014 PFM PFM [facility] Work Phone: Start: 08-20-2013 End: 04-14-2015 *Hepatic Function Panel *Hepatic Function Panel [facility] Work Phone: Start: 08-20-2013 End: 08-20-2013 Follow Up Appt 6 months Follow Up Appt 6 months [facility] Work Phone: Start: 08-20-2013 End: 04-14-2015 Lipid panel [AGGREGATE] *Lipid Profile CC PCP [facility] Work Phone: Start: 08-20-2013 End: 08-20-2013 MMM MMM [facility] Work Phone: Start: 08-20-2013 End: 04-14-2015 *Hepatic Function Panel *Hepatic Function Panel [facility] Work Phone: Start: 08-20-2013 End: 08-20-2013 Follow Up Appt 6 months Follow Up Appt 6 months [facility] Work Phone: Start: 08-20-2013 End: 04-14-2015 Lipid panel [AGGREGATE] *Lipid Profile CC PCP [facility] Work Phone: Start: 08-20-2013 End: 08-20-2013 MMM MMM [facility] Work Phone: Start: 01-16-2013 End: 01-16-2013 Echocardiography Echocardiogram (complete) [facility] Work Phone: Start: 01-16-2013 End: 01-16-2013 Follow Up Appt 6 months Follow Up Appt 6 months [facility] Work Phone: Start: 01-16-2013 End: 08-20-2013 Follow Up Appt Other Follow Up Appt Other [facility] Work Phone: Start: 01-16-2013 End: 01-17-2013 INR Coag RelTime (PPP) *PT/INR [facility] Work Phone: Start: 01-16-2013 End: 01-16-2013 PFM PFM [facility] Work Phone: Start: 01-16-2013 End: 01-17-2013 Coagulation factor induced.INR assay in platelet poor plasma *PT/INR [facility] Work Phone: Start: 01-16-2013 End: 01-16-2013 Echocardiography Echocardiogram (complete) [facility] Work Phone: Start: 01-16-2013 End: 01-16-2013 Follow Up Appt 6 months Follow Up Appt 6 months [facility] Work Phone: Start: 01-16-2013 End: 08-20-2013 Follow Up Appt Other Follow Up Appt Other [facility] Work Phone: Start: 01-16-2013 End: 01-16-2013 PFM PFM [facility] Work Phone: Start: 11-25-2012 End: 02-23-2014 INR Coag RelTime (PPP) *PT/INR - Standing Order [facility] Work Phone: Start: 11-25-2012 End: 02-23-2014 Coagulation factor induced.INR assay in platelet poor plasma *PT/INR - Standing Order [facility] Work Phone: Start: 09-18-2012 End: 08-20-2013 *Hepatic Function Panel *Hepatic Function Panel [facility] Work Phone: Start: 09-18-2012 End: 08-20-2013 Lipid panel [AGGREGATE] *Lipid Profile [facility] Work Phone: Start: 09-18-2012 End: 08-20-2013 *Hepatic Function Panel *Hepatic Function Panel [facility] Work Phone: Start: 09-18-2012 End: 08-20-2013 Lipid panel [AGGREGATE] *Lipid Profile [facility] Work Phone: Start: 06-10-2012 End: 06-10-2012 Echocardiography Echocardiogram (complete) [facility] Work Phone: Start: 06-10-2012 End: 06-10-2012 Follow Up Appt 6 months Follow Up Appt 6 months [facility] Work Phone: Start: 06-10-2012 End: 06-10-2012 Echocardiography Echocardiogram (complete) [facility] Work Phone: Start: 06-10-2012 End: 06-10-2012 Follow Up Appt 6 months Follow Up Appt 6 months [facility] Work Phone: Start: 04-04-2012 End: 06-10-2012 *Hepatic Function Panel *Hepatic Function Panel [facility] Work Phone: Start: 04-04-2012 End: 06-10-2012 Lipid panel [AGGREGATE] *Lipid Profile [facility] Work Phone: Start: 04-04-2012 End: 06-10-2012 *Hepatic Function Panel *Hepatic Function Panel [facility] Work Phone: Start: 04-04-2012 End: 06-10-2012 Lipid panel [AGGREGATE] *Lipid Profile [facility] Work Phone: Start: 02-26-2012 End: 06-06-2012 *Hepatic Function Panel *Hepatic Function Panel [facility] Work Phone: Start: 02-26-2012 End: 06-06-2012 *Hepatic Function Panel *Hepatic Function Panel [facility] Work Phone: Start: 12-11-2011 End: 12-18-2011 *BMP *BMP [facility] Work Phone: Start: 12-11-2011 End: 12-18-2011 *CBC with Differential *CBC with Differential [facility] Work Phone: Start: 12-11-2011 End: 12-18-2011 *Hepatic Function Panel *Hepatic Function Panel [facility] Work Phone: Start: 12-11-2011 End: 12-18-2011 Ct thorax w/contrast material CT Chest with Contrast [facility] Work Phone: Start: 12-11-2011 End: 12-11-2011 Ecg routine ecg w/least 12 lds w/i&r EKG (In office) [facility] Work Phone: Start: 12-11-2011 End: 12-11-2011 Follow Up Appt 6 months Follow Up Appt 6 months [facility] Work Phone: Start: 12-11-2011 End: 12-18-2011 Lipid panel [AGGREGATE] *Lipid Profile [facility] Work Phone: Start: 12-11-2011 End: 12-18-2011 Magnesium *Magnesium [facility] Work Phone: Start: 12-11-2011 End: 12-18-2011 Thyroid stimulating hormone (TSH) *TSH [facility] Work Phone: Start: 12-11-2011 End: 12-18-2011 Thyroxine (T4) *T4 (Total) [facility] Work Phone: Start: 12-11-2011 End: 12-18-2011 *BMP *BMP [facility] Work Phone: Start: 12-11-2011 End: 12-18-2011 *CBC with Differential *CBC with Differential [facility] Work Phone: Start: 12-11-2011 End: 12-18-2011 *Hepatic Function Panel *Hepatic Function Panel [facility] Work Phone: Start: 12-11-2011 End: 12-18-2011 Ct thorax w/dye CT Chest with Contrast [facility] Work Phone: Start: 12-11-2011 End: 12-11-2011 Electrocardiogram, complete EKG (In office) [facility] Work Phone: Start: 12-11-2011 End: 12-11-2011 Follow Up Appt 6 months Follow Up Appt 6 months [facility] Work Phone: Start: 12-11-2011 End: 12-18-2011 Lipid panel [AGGREGATE] *Lipid Profile [facility] Work Phone: Start: 12-11-2011 End: 12-18-2011 Magnesium *Magnesium [facility] Work Phone: Start: 12-11-2011 End: 12-18-2011 Thyroid stimulating hormone (TSH) *TSH [facility] Work Phone: Start: 12-11-2011 End: 12-18-2011 Thyroxine (T4) *T4 (Total) [facility] Work Phone: Start: 06-12-2011 End: 12-18-2011 *BMP *BMP [facility] Work Phone: Start: 06-12-2011 End: 12-18-2011 *CBC with Differential *CBC with Differential [facility] Work Phone: Start: 06-12-2011 End: 12-18-2011 *Hepatic Function Panel *Hepatic Function Panel [facility] Work Phone: Start: 06-12-2011 End: 06-12-2011 Echocardiography Echocardiogram (complete) [facility] Work Phone: Start: 06-12-2011 End: 06-12-2011 Follow Up Appt 6 months Follow Up Appt 6 months [facility] Work Phone: Start: 06-12-2011 End: 12-18-2011 Lipid panel [AGGREGATE] *Lipid Profile [facility] Work Phone: Start: 06-12-2011 End: 12-18-2011 *BMP *BMP [facility] Work Phone: Start: 06-12-2011 End: 12-18-2011 *CBC with Differential *CBC with Differential [facility] Work Phone: Start: 06-12-2011 End: 12-18-2011 *Hepatic Function Panel *Hepatic Function Panel [facility] Work Phone: Start: 06-12-2011 End: 06-12-2011 Echocardiography Echocardiogram (complete) [facility] Work Phone: Start: 06-12-2011 End: 06-12-2011 Follow Up Appt 6 months Follow Up Appt 6 months [facility] Work Phone: Start: 06-12-2011 End: 12-18-2011 Lipid panel [AGGREGATE] *Lipid Profile [facility] Work Phone: Start: 11-24-2005 Screening for malignant neoplasm of colon COLORECTAL CANCER SCREENING DISCUSSION [facility] Start: 1995 Zoster vaccine hzv live for subcutaneous use ZOSTER (SHINGLES) VACCINE (1 of 2) [facility] Start: 1964 Third diphtheria, tetanus and acellular pertussis (DTaP) vaccination TDAP (ADULT) [facility] Start: 1945 Tetanus vaccination TETANUS [facility] End: 06-15-2024 BMP WITHOUT GLUCOSE BMP WITHOUT GLUCOSE Lab Routine Acute bacterial endocarditis Twice a Week for 6 Occurrences starting 06/15/2023 until 06/15/2024 [facility] Comment on above: Twice a Week for 6 Occurrences starting 06/15/2023 until 06/15/2024 CHEM 6 (LYTES, BUN CREA) CHEM 6 (LYTES, BUN CREA) Lab Routine Every Mon in the AM Lab until discontinued starting 06/18/2023, 1 completed [facility] Comment on above: Every Mon in the AM Lab until discontinu ed starting 06/18/2023, 1 completed End: 06-15-2024 Complete blood count with white cell differential, automated CBC, EDIF, PLATELET Lab Routine Acute bacterial endocarditis Once a week for 6 Occurrences starting 06/15/2023 until 06/15/2024 [facility] Comment on above: Once a week for 6 Occurrences starting 0 06/15/2023 until 06/15/2024 End: 06-15-2024 Hepatic function 2000 panel - Serum or Plasma HEPATIC FUNCTION PANEL Lab Routine Acute bacterial endocarditis Once a week for 6 Occurrences starting 06/15/2023 until 06/15/2024 [facility] Comment on above: Once a week for 6 Occurrences starting 0 06/15/2023 until 06/15/2024 LAB INSTRUCTIONS LAB INSTRUCTION S Lab Routine Acute bacterial endocarditis Ordered: 06/15/2023 [facility] Comment on above: Ordered: 06/15/2023 Magnesium [Mass/volu me] in Serum or Plasma MAGNESIUM Lab Routine UD PRN until discontinued starting 06/06/2023, 1 completed [facility] Comment on above: UD PRN until discontinued starting 06/06, 1 completed Magnesium [Mass/volu me] in Serum or Plasma MAGNESIUM Lab Routine Every Mon in the AM Lab until discontinued starting 06/18/2023, 1 completed [facility] Comment on above: Every Mon in the AM Lab until discontinu ed starting 06/18/2023, 1 completed [facility] Education [facility] Work Phone: Potassium [Moles/vol ume] in Serum or Plasma POTASSIUM Lab Routine UD PRN until discontinued starting 06/06/2023, 1 completed [facility] Comment on above: UD PRN until discontinued starting 06/06, 1 completed PROTIME-INR PROTIME-INR Lab Routine Every morning Lab until discontinued starting 06/10/2023, 9 completed [facility] Comment on above: Every morning Lab until discontinued sta rting 06/10/2023, 9 completed Standard ECG ECG ECG STAT Needed until discontinued starting 06/06/2023, 1 completed [facility] Comment on above: Needed until discontinued starting , 1 completed Standard ECG ECG ECG Routine Daily until discontinued starting 06/11/2023 [facility] Comment on above: Daily until discontinued starting 2023 Payers Date Payer Category Payer Self-pay 2023 Unknown AARP AARP [id number] 2023-Present [address] [place] [address] [id number] 2022 Unknown [id number] 2021 Medicare [id number] 2020 Unknown [id number] 2010 Medicare MEDICARE MEDICAR E A AND B [id number] 2010-Present [address] [place] [address] [id number] 2010 Medicare [id number] 1945 Unknown [id number] 2.16.840.1.230766.3.579.2.732 1945 Unknown [id number] 2.16.840.1.175028.3.579.2.732 1945 Unknown [id number] 2.16.840.1.486925.3.579.2.732 1945 Unknown [id number] 2.16.840.1.092087.3.579.2.732 1945 Unknown [id number] 2.16.840.1.592277.3.579.2.732 1945 Unknown [id number] 2.16.840.1.155243.3.579.2.732 1945 Unknown [id number] 2.16.840.1.852310.3.579.2.732 1945 Unknown [id number] 2.16.840.1.979823.3.579.2.732 1945 Unknown [id number] 2.16.840.1.446837.3.579.2.732 1945 Unknown [id number] 2.16.840.1.004787.3.579.2.732 1945 Unknown [id number] 2.16.840.1.647201.3.579.2.732 1945 Unknown [id number] 2.16.840.1.819553.3.579.2.732 1945 Unknown [id number] 2.16.840.1.059894.3.579.2.732 1945 Unknown [id number] 2.16.840.1.398093.3.579.2.732 1945 Unknown [id number] 2.16.840.1.613765.3.579.2.732 1945 Unknown [id number] 2.16.840.1.779992.3.579.2.732 1945 Unknown [id number] 2.16.840.1.213413.3.579.2.594 1945 Unknown [id number] 2.16.840.1.023006.3.579.2.594 1945 Unknown [id number] 2.16.840.1.900348.3.579.2.594 1945 Unknown [id number] 2.16.840.1.114340.3.579.2.594 Unknown [id number] 2.16.840.1.518474.3.579.2.462 Unknown [id number] 2.16.840.1.984012.3.579.2.462 Unknown [id number] 2.16.840.1.456469.3.579.2.462 Unknown [id number] 2.16.840.1.915042.3.579.2.462 Unknown [id number] 2.16.840.1.994339.3.579.2.462 Unknown [id number] 2.16.840.1.809775.3.579.2.462 Unknown [id number] 2.16.840.1.723176.3.579.2.462 Unknown [id number] 2.16.840.1.897507.3.579.2.462 Unknown [id number] 2.16840.1.033845.3.579.2.462 Unknown [id number] 2.16.840.1.155966.3.579.2.462 Unknown [id number] 2.16.840.1.693456.3.579.2.462 Unknown [id number] 2.16.840.1.011491.3.579.2.462 Unknown [id number] 2.16.840.1.426196.3.579.2.462 Unknown [id number] 2.16.840.1.082386.3.579.2.462 Unknown [id number] 2.16.840.1.726380.3.579.2.462 Unknown [id number] 2.16.840.1.460854.3.579.2.462 Unknown [id number] 2.16.840.1.217015.3.579.2.462 Unknown [id number] 2.16.840.1.127198.3.579.2.462 Unknown [id number] 2.16.840.1.635378.3.579.2.462 Unknown [id number] 2.16840.1.914346.3.579.2.462 Unknown [id number] 2.16840.1.918786.3.579.2.462 Unknown [id number] 2.16.840.1.539126.3.579.2.462 Unknown [id number] 2.16840.1.289737.3.579.2.462 Unknown [id number] 2.16840.1.317226.3.579.2.462 Unknown [id number] 2.840.1.737751.3.579.2.462 Unknown [id number] 2.840.1.919291.3.579.2.462 Unknown [id number] 2.840.1.649927.3.579.2.462 Unknown [id number] 2.840.1.511113.3.579.2.462 Unknown [id number] 2.840.1.213325.3.579.2.462 Unknown [id number] 2.840.1.448520.3.579.2.462 Unknown [id number] 2.840.1.465118.3.579.2.462 Unknown [id number] 2.840.1.980912.3.579.2.462 Unknown [id number] 2.840.1.891557.3.579.2.462 Unknown [id number] 2.840.1.045299.3.579.2.462 Unknown [id number] 2.840.1.580575.3.579.2.462 Unknown [id number] 2.16840.1.881257.3.579.2.462 Unknown [id number] 2.16840.1.900621.3.579.2.462 Unknown [id number] 2.840.1.667973.3.579.2.462 Social History Date Type Detail Facility Start: 06-07-2023 Tobacco smoking stat us WIIS Never smoked tobacco [facility] Start: 06-07-2023 Tobacco use and exposure Smoke less tobacco non-user [facility] Start: 06-07-2023 End: 08-10-2023 Alcohol intake Lifetime non-drinker (finding) [facility] Start: 06-06-2023 End: 08-10-2023 History of Social function [facility] Start: 06-06-2023 End: 08-10-2023 [facility] Utilities [facility] Has the [employer], oil, or water [employer] threatened to shut off services in your home in past 12Mo No [facility] (I/We) worried [facility] (my/our) food would run out before (I/we) got money to buy more. Never true [facility] In the past 12 month s, has lack of transportation kept you from medical appointments or from getting medications? No [facility] Start: 1945 Sex Assigned At Not on file O [facility] NEGATED: Highlighted rowStart: SANDRALeana History of tobacco use Passive smoker [facility] Clinical Notes 03-19-2021 to 08-27-2024 Dean Veloz MD - 08/10/2023 11:00 AM Dustin Veloz MD - 08/10/2023 11:00 AM Rowdy Covington MD - 06/19/2023 1:13 PM Rowdy Covington MD - 06/19/2023 1:13 PM ESTDischarge Instructions Note Date & Type Note Facility 08-27-2024 Note [facility] 01-30-2024 Note [facility] 08-10-2023 History and physical note FER HISTORY AND PHYSICAL IDENTIFYING INFORMATION PATIENT: Markus Nava ADMIT DATE: 08/10/2023 TIME OF EVALUATION: 08/10/2023 11:14 AM HPI / Assessment & Plan Markus Nava is a 78 y.o. male presenting for outpatient FER to evaluate endocarditis after completion of antibiotic course. FER Review of Systems Dentures / Loose Teeth - YES: dentures Dysphagia - NO GI Bleeding- YES: had ulcers that have since been treated Prior Gastric Surgery or Banding - YES: colectomy Sleep Apnea / Home Oxygen Use - NO Prior Surgery, Radiation, or Malignancy of the Chest or Esophagus - NO EtOH or Drug Use- NO Consent signed and sedation assessment completed. Will proceed with FER. 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 Afib GI Bleeding Diverticulitis Surgical History: Mechanical AVR Bentall Colectomy Current Outpatient Medications Medication Instructions alteplase (CATHFLO) 2 mg, Intracatheter, ONCE NEEDED cephALEXin (KEFLEX) 1,000 mg, Oral, 3 times daily DULoxetine [address] Particles capsule DR 1 capsule, Oral, DAILY ferrous sulfate 325 mg, Oral, DAILY LORazepam (ATIVAN) 0.5 mg, Oral, EVERY 6 HOURS NEEDED melatonin capsule 10 mg, Oral, Nightly Metoprolol 50 MG tab regular release 1 tablet, Oral, 2 TIMES DAILY Tamsulosin HCl (FLOMAX) 0.4 mg, Oral, DAILY warfarin (COUMADIN) 5 mg, Oral, DAILY, Take 6.5 mg daily on Sun, Mon, Tues, Thurs, Fri, and Sat. Take 8 mg on . Allergies Allergen Reactions Fentanyl Alprazolam Other Reaction(s): Other Altered mental status-tolerates lorazepam Social History Socioeconomic History Marital status: Spouse name: Not on file Number of children: Not on file Years of education: Not on file Highest education level: Not on file Occupational History Not on file Tobacco Use Smoking status: Never Passive exposure: Never Smokeless tobacco: Never Substance and Sexual Activity Alcohol use: Never Drug use: Never Sexual activity: Not on file Other Topics Concern Not on file Social History Narrative Not on file Social Determinants of Health Financial Resource Strain: Not on file Food Insecurity: No Food Insecurity (06/06/2023) Hunger Vital Sign Worried About Running Out of Food in the Last Year: Never true Ran Out of Food in the Last Year: Never true Transportation Needs: No Transportation Needs (06/06/2023) PRAPARE - Transportation Lack of Transportation (Medical): No Lack of Transportation (Non-Medical): No Physical Activity: Not on file Stress: Not on file Social Connections: Not on file Intimate Partner Violence: Not At Risk (06/06/2023) Humiliation, Afraid, Rape, and Kick questionnaire Fear of Current or Ex-Partner: No Emotionally Abused: No Physically Abused: No Sexually Abused: No Housing Stability: Low Risk (06/06/2023) Housing Stability Vital Sign Unable to Pay for Housing in the Last Year: No Number of Places Lived in the Last Year: 1 Unstable Housing in the Last Year: No History reviewed. No pertinent family history. REVIEW OF SYSTEMS A full review of systems and found to be negative unless otherwise mentioned. PHYSICAL EXAM Pulse (Heart Rate): [76] 76 Resp Rate: [18] 18 BP: (143)/(67) 143/67 O2 Sat (%): [97 %] 97 % There is no height or weight on file to calculate BMI. General: NAD, lying in bed comfortably HEENT: Normocephalic, atraumatic. Moist mucus membranes, oropharynx clear w/o erythema or exudates, normal dentition. Mallampati Class: 2 Neck: Trachea is midline, normal range of motion Resp/Back: Lungs are clear to auscultation bilaterally; no wheezes/rales/rhonchi Cardiac: Regular rate and rhythm, mechanical S1, normal S2. No S3 or S4; no murmurs or rubs LABS Lab Results Component Value Date SODIUM 137 07/30/2023 SODIUM 137.0 08/29/2001 POTASSIUM 4.4 07/30/2023 POTASSIUM 3.79 08/29/2001 CHLORIDE 102 06/18/2023 CHLORIDE 106 12/24/2004 CHLORIDE 106 (H) 08/29/2001 CO2 28 06/18/2023 CO2 24 12/24/2004 CO2 26.6 08/30/2001 BUN 15 07/30/2023 CREATSERUM 0.95 07/30/2023 Lab Results Component Value Date WBC 4.73 07/30/2023 HGB 10.7 07/30/2023 HCT 34.5 07/30/2023 HCT 33.0 08/29/2001 PLATELET 273 07/30/2023 MCV 90.6 06/08/2023 MCV 88.2 12/24/2004 Lab Results Component Value Date INR 2.5 (H) 06/19/2023 INR 2.2 (H) 12/24/2004 PTT 123.4 (H) 06/18/2023 PTT 48 (H) 12/24/2004 [facility] 08-10-2023 History and physical note FER HISTORY AND PHYSICAL IDENTIFYING INFORMATION PATIENT: Markus Nava ADMIT DATE: 08/10/2023 TIME OF EVALUATION: 08/10/2023 11:14 AM HPI / Assessment & Plan Markus Nava is a 78 y.o. male presenting for outpatient FER to evaluate endocarditis after completion of antibiotic course. FER Review of Systems Dentures / Loose Teeth - YES: dentures Dysphagia - NO GI Bleeding- YES: had ulcers that have since been treated Prior Gastric Surgery or Banding - YES: colectomy Sleep Apnea / Home Oxygen Use - NO Prior Surgery, Radiation, or Malignancy of the Chest or Esophagus - NO EtOH or Drug Use- NO Consent signed and sedation assessment completed. Will proceed with FER. 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 Afib GI Bleeding Diverticulitis Surgical History: Mechanical AVR Bentall Colectomy Current Outpatient Medications Medication Instructions alteplase (CATHFLO) 2 mg, Intracatheter, ONCE NEEDED cephALEXin (KEFLEX) 1,000 mg, Oral, 3 times daily DULoxetine [address] Particles capsule DR 1 capsule, Oral, DAILY ferrous sulfate 325 mg, Oral, DAILY LORazepam (ATIVAN) 0.5 mg, Oral, EVERY 6 HOURS NEEDED melatonin capsule 10 mg, Oral, Nightly Metoprolol 50 MG tab regular release 1 tablet, Oral, 2 TIMES DAILY Tamsulosin HCl (FLOMAX) 0.4 mg, Oral, DAILY warfarin (COUMADIN) 5 mg, Oral, DAILY, Take 6.5 mg daily on Sun, Mon, Tues, Thurs, Fri, and Sat. Take 8 mg on Weds. Allergies Allergen Reactions Fentanyl Alprazolam Other Reaction(s): Other Altered mental status-tolerates lorazepam Social History Socioeconomic History Marital status: Spouse name: Not on file Number of children: Not on file Years of education: Not on file Highest education level: Not on file Occupational History Not on file Tobacco Use Smoking status: Never Passive exposure: Never Smokeless tobacco: Never Substance and Sexual Activity Alcohol use: Never Drug use: Never Sexual activity: Not on file Other Topics Concern Not on file Social History Narrative Not on file Social Determinants of Health Financial Resource Strain: Not on file Food Insecurity: No Food Insecurity (06/06/2023) Hunger Vital Sign Worried About Running Out of Food in the Last Year: Never true Ran Out of Food in the Last Year: Never true Transportation Needs: No Transportation Needs (06/06/2023) PRAPARE - Transportation Lack of Transportation (Medical): No Lack of Transportation (Non-Medical): No Physical Activity: Not on file Stress: Not on file Social Connections: Not on file Intimate Partner Violence: Not At Risk (06/06/2023) Humiliation, Afraid, Rape, and Kick questionnaire Fear of Current or Ex-Partner: No Emotionally Abused: No Physically Abused: No Sexually Abused: No Housing Stability: Low Risk (06/06/2023) Housing Stability Vital Sign Unable to Pay for Housing in the Last Year: No Number of Places Lived in the Last Year: 1 Unstable Housing in the Last Year: No History reviewed. No pertinent family history. REVIEW OF SYSTEMS A full review of systems and found to be negative unless otherwise mentioned. PHYSICAL EXAM Pulse (Heart Rate): [76] 76 Resp Rate: [18] 18 BP: (143)/(67) 143/67 O2 Sat (%): [97 %] 97 % There is no height or weight on file to calculate BMI. General: NAD, lying in bed comfortably HEENT: Normocephalic, atraumatic. Moist mucus membranes, oropharynx clear w/o erythema or exudates, normal dentition. Mallampati Class: 2 Neck: Trachea is midline, normal range of motion Resp/Back: Lungs are clear to auscultation bilaterally; no wheezes/rales/rhonchi Cardiac: Regular rate and rhythm, mechanical S1, normal S2. No S3 or S4; no murmurs or rubs LABS Lab Results Component Value Date SODIUM 137 07/30/2023 SODIUM 137.0 08/29/2001 POTASSIUM 4.4 07/30/2023 POTASSIUM 3.79 08/29/2001 CHLORIDE 102 06/18/2023 CHLORIDE 106 12/24/2004 CHLORIDE 106 (H) 08/29/2001 CO2 28 06/18/2023 CO2 24 12/24/2004 CO2 26.6 08/30/2001 BUN 15 07/30/2023 CREATSERUM 0.95 07/30/2023 Lab Results Component Value Date WBC 4.73 07/30/2023 HGB 10.7 07/30/2023 HCT 34.5 07/30/2023 HCT 33.0 08/29/2001 PLATELET 273 07/30/2023 MCV 90.6 06/08/2023 MCV 88.2 12/24/2004 Lab Results Component Value Date INR 2.5 (H) 06/19/2023 INR 2.2 (H) 12/24/2004 PTT 123.4 (H) 06/18/2023 PTT 48 (H) 12/24/2004 documented in this encounter [facility] 06-19-2023 Hospital course Narrative Hospital Medicine Discharge Summary Patient Name Markus Nava Age (Date of ) 78 y.o. 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 As you may know, Mr. Nava is a 78 y.o. 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 MSSA bacteremia and endocarditis of prosthetic AV valve Initially with septic shock at OSH, now resolved. Found to have MSSA bacteremia. Prosthetic AV vegetation confirmed on OSH FER. - Seen by ID and CT surgery during admission. Plan to continue cefazolin IV for 6 weeks (EOT 08/02) and he received a 2 week course of gentamicin while admitted (EOT 06/19) - Plan for outpatient ID and [facility] follow-up with repeat FER at the end of therapy Mechanical aortic valve present - Discharging with INR at goal on home regimen of coumadin 6.5 mg nightly save for 8 mg on Sunday -Reason for Coumadin: Mechanical Prosthetic Valve Target INR: 2.5-3.5 Planned Duration of Coumadin Treatment: Indefinite Last 3 Coumadin Doses: 8 mg (06/16); 6.5 mg (06/17); 6.5 mg (06/18) Last 3 INR Values: Recent Labs 06/17/23 0328 06/17/23 1259 06/17/23 2159 06/18/23 0609 06/19/23 0546 INR 1.7* -- -- 2.5* 2.5* PT 20.0* -- -- 26.5* 27.0* PTT 91.6* 101.7* 74.5* 123.4* -- Atrial fibrillation CHADSVASC 3 (age, HTN). RVR at OSH, started on amiodarone. - Continue amiodarone 200 mg daily - Continue metoprolol 50mg BID and coumadin History of GI bleed Diverticulitis s/p partial colectomy Suspected Crohn's disease History of diverticulitis s/p partial colectomy, but recently with GI bleed in Apr 2023. Colonoscopy with concern for Crohn's disease, discharged on prednisone 20 mg without taper - Reviewed discharge summary from this hospitalization today. Has been on prednisone 20 mg about 6 weeks already and does not have follow-up until August with GI - at this time, I think risk of continued immunosuppression is outweighed by potential benefit of scaling down prednisone to treat his current (life-threatening) infection - Decrease prednisone to 15 mg daily x 1 week (started 06/16). Then decrease by 5 mg per week until off. Patient was given a script for prednisone taper and had supply in hand at discharge.. - Discussed PJP ppx with pharmacist and they did not feel strongly about continuing since pred dose decreasing - Encouraged Markus to call Dr. Perez's office (GI) and set up and earlier appointment. He secured an appt. For . Urethral stricture s/p dilation Urology consulted and dilation performed at OSH, brown removed prior to transfer. - Continue flomax (started here and he had supply in hand for home) Basal Cell Carcinoma neck - Derm was consulted for a neck lesion that they felt was typical for a basal cell. 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 Upon discharge the patient's code was Full Code Please see the remainder of this document for relevant data from this admission as well as the patient's discharge instructions and follow-up appointments.. An electronic copy of the patient's records can be obtained via [facility] at [email or web address] It has been my pleasure participating in this patient's care. Please contact me with any questions or concerns regarding his hospital stay. The total time of discharge was 42 minutes. Sincerely, Wiley Covington MD Division of Hospital Medicine Relevant Data from this Admission Vitals BP: 116/56 Pulse (Heart Rate): 55 Resp Rate: 18 Temp: 98 F (36.7 C) O2 Sat (%): 100 % Weight: 96.5 kg (212 lb 10.1 oz) (Standing ) Physical Exam on Discharge Resp: lungs clear to auscultation bilaterally, normal work of breathing CV:: RRR, normal S1 and S2, No DADA Psych: Ox3, appropriate affect and cognition Recent Labs 06/17/23 1259 06/17/23 2159 06/18/23 0609 06/19/23 0546 PLATELET 270 -- -- -- SODIUM -- -- 138 -- POTASSIUM -- -- 4.6 -- CO2 -- -- 28 -- ANIONGAP -- -- 13 -- BUN -- -- 20 -- CREATSERUM -- -- 1.03 -- MAGNESIUM -- -- 2.0 -- INR -- -- 2.5* 2.5* PTT 101.7* < > 123.4* -- < > = values in this interval not displayed. Patient Instructions on Discharge Future Appointments Date Time Provider Department Center 07/26/2023 11:00 [facility] 07/30/2023 10:00 AM Titi Sabillon MD (John) [facility] 08/02/2023 10:00 AM MD [facility] [address] [address] Michael Maldonado MD 2881 [facility] Phys[facility] [address] [place] [phone] Follow up Please call to schedule hospital follow-up/INR check Medication List START taking these medications ceFAZolin injection Commonly known as: ANCEF 6 g, every 24 hours as a continuous infusion. *diluent and final concentration at discretion of receiving pharmacy* 46 days worth of supplies Tamsulosin HCl 0.4 MG CAPS Commonly known as: FLOMAX Take 1 capsule by mouth daily. CHANGE how you take these medications predniSONE 5 MG TABS Commonly known as: DELTASONE Take 3 tablets by mouth daily for 4 days, THEN 2 tablets daily for 7 days, THEN 1 tablet daily for 7 days. Start taking on: June 19, 2023 What changed: medication strength See the new instructions. warfarin 5 MG tablet Commonly known as: COUMADIN What changed: Another medication with the same name was removed. Continue taking this medication, and follow the directions you see here. CONTINUE taking these medications alteplase 2 MG SOLR Commonly known as: CATHFLO DULoxetine [address] capsule Commonly known as: CYMBALTA ferrous sulfate 325 (65 Fe) MG tab DR tablet LORazepam 0.5 MG TABS Commonly known as: ATIVAN melatonin CAPS Metoprolol 50 MG tab regular release Commonly known as: LOPRESSOR STOP taking these medications Warfarin 1 MG tablet Commonly known as: COUMADIN You also have another medication with the same name that you need to continue taking as instructed. Where to Get Your Medications These medications were sent to [facility] [address], [address], [facility] [address] Hours: Sunday through Sunday 8am to 9pm, Sunday and Sunday 9am to 6pm predniSONE 5 MG TABS Tamsulosin HCl 0.4 MG CAPS You can get these medications from any pharmacy Bring a paper prescription for each of these medications ceFAZolin injection Follow-up: [address] [place] [id number] Michael Maldonado MD 1768 [facility] [address] [place] [phone] Follow up Please call to schedule hospital follow-up/INR check Upcoming Appointments (up to five)-Some appointments for Medical Center outpatient clinics or diagnostic testing locations are not displayed below Provider Department Dept Phone 07/26/2023 11:00 AM FER TESTING, [facility] Cardiovascular Imaging Lab [facility] Arrive at: Arrive to [facility] Registration Desk [phone] 07/30/2023 10:00 AM Titi Lopez (John)[facility] Arrive at: Arrive to [facility] Registration Desk [phone] 08/02/2023 10:00 AM Asha Bundy Infectious Diseases Care [facility] Outpatient Care [phone] documented in this encounter [facility] 06-19-2023 Hospital course Narrative Hospital Medicine Discharge Summary Patient Name Markus Nava Age (Date of ) 78 y.o. 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 As you may know, Mr. Nava is a 78 y.o. 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 MSSA bacteremia and endocarditis of prosthetic AV valve Initially with septic shock at OSH, now resolved. Found to have MSSA bacteremia. Prosthetic AV vegetation confirmed on OSH FER. - Seen by ID and CT surgery during admission. Plan to continue cefazolin IV for 6 weeks (EOT 08/02) and he received a 2 week course of gentamicin while admitted (EOT 06/19) - Plan for outpatient ID and OHS follow-up with repeat FER at the end of therapy Mechanical aortic valve present - Discharging with INR at goal on home regimen of coumadin 6.5 mg nightly save for 8 mg on Sunday -Reason for Coumadin: Mechanical Prosthetic Valve Target INR: 2.5-3.5 Planned Duration of Coumadin Treatment: Indefinite Last 3 Coumadin Doses: 8 mg (06/16); 6.5 mg (06/17); 6.5 mg (06/18) Last 3 INR Values: Recent Labs 06/17/23 0328 06/17/23 1259 06/17/23 2159 06/18/23 0609 06/19/23 0546 INR 1.7* -- -- 2.5* 2.5* PT 20.0* -- -- 26.5* 27.0* PTT 91.6* 101.7* 74.5* 123.4* -- Atrial fibrillation CHADSVASC 3 (age, HTN). RVR at OSH, started on amiodarone. - Continue amiodarone 200 mg daily - Continue metoprolol 50mg BID and coumadin History of GI bleed Diverticulitis s/p partial colectomy Suspected Crohn's disease History of diverticulitis s/p partial colectomy, but recently with GI bleed in Apr 2023. Colonoscopy with concern for Crohn's disease, discharged on prednisone 20 mg without taper - Reviewed discharge summary from this hospitalization today. Has been on prednisone 20 mg about 6 weeks already and does not have follow-up until August with GI - at this time, I think risk of continued immunosuppression is outweighed by potential benefit of scaling down prednisone to treat his current (life-threatening) infection - Decrease prednisone to 15 mg daily x 1 week (started 06/16). Then decrease by 5 mg per week until off. Patient was given a script for prednisone taper and had supply in hand at discharge.. - Discussed PJP ppx with pharmacist and they did not feel strongly about continuing since pred dose decreasing - Encouraged Markus to call Dr. Perez's office (GI) and set up and earlier appointment. He secured an appt. For . Urethral stricture s/p dilation Urology consulted and dilation performed at OSH, brown removed prior to transfer. - Continue flomax (started here and he had supply in hand for home) Basal Cell Carcinoma neck - Derm was consulted for a neck lesion that they felt was typical for a basal cell. 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 Upon discharge the patient's code was Full Code Please see the remainder of this document for relevant data from this admission as well as the patient's discharge instructions and follow-up appointments.. An electronic copy of the patient's records can be obtained via [facility] at [email or web address] It has been my pleasure participating in this patient's care. Please contact me with any questions or concerns regarding his hospital stay. The total time of discharge was 42 minutes. Sincerely, Wiley Covington MD Division of Hospital Medicine Relevant Data from this Admission Vitals BP: 116/56 Pulse (Heart Rate): 55 Resp Rate: 18 Temp: 98 F (36.7 C) O2 Sat (%): 100 % Weight: 96.5 kg (212 lb 10.1 oz) (Standing ) Physical Exam on Discharge Resp: lungs clear to auscultation bilaterally, normal work of breathing CV:: RRR, normal S1 and S2, No DADA Psych: Ox3, appropriate affect and cognition Recent Labs 06/17/23 1259 06/17/23 2159 06/18/23 0609 06/19/23 0546 PLATELET 270 -- -- -- SODIUM -- -- 138 -- POTASSIUM -- -- 4.6 -- CO2 -- -- 28 -- ANIONGAP -- -- 13 -- BUN -- -- 20 -- CREATSERUM -- -- 1.03 -- MAGNESIUM -- -- 2.0 -- INR -- -- 2.5* 2.5* PTT 101.7* < > 123.4* -- < > = values in this interval not displayed. Patient Instructions on Discharge Future Appointments Date Time Provider Department Center 07/26/2023 11:00 AM FER TESTING, [facility] RDSECH [facility] 07/30/2023 10:00 AM Titi Sabillon MD (John) [facility] 08/02/2023 10:00 AM Asha Bundy MD [facility], [place] [address] Michael Maldonado MD 1761 [facility] [address] [place] [phone] Follow up Please call to schedule hospital follow-up/INR check Medication List START taking these medications ceFAZolin injection Commonly known as: ANCEF 6 g, every 24 hours as a continuous infusion. *diluent and final concentration at discretion of receiving pharmacy* 46 days worth of supplies Tamsulosin HCl 0.4 MG CAPS Commonly known as: FLOMAX Take 1 capsule by mouth daily. CHANGE how you take these medications predniSONE 5 MG TABS Commonly known as: DELTASONE Take 3 tablets by mouth daily for 4 days, THEN 2 tablets daily for 7 days, THEN 1 tablet daily for 7 days. Start taking on: June 19, 2023 What changed: medication strength See the new instructions. warfarin 5 MG tablet Commonly known as: COUMADIN What changed: Another medication with the same name was removed. Continue taking this medication, and follow the directions you see here. CONTINUE taking these medications alteplase 2 MG SOLR Commonly known as: CATHFLO DULoxetine [address] capsule Commonly known as: CYMBALTA ferrous sulfate 325 (65 Fe) MG tab DR tablet LORazepam 0.5 MG TABS Commonly known as: ATIVAN melatonin CAPS Metoprolol 50 MG tab regular release Commonly known as: LOPRESSOR STOP taking these medications Warfarin 1 MG tablet Commonly known as: COUMADIN You also have another medication with the same name that you need to continue taking as instructed. Where to Get Your Medications These medications were sent to [facility] [address], [address], [facility] [address] Hours: Sunday through Sunday 8am to 9pm, Sunday and Sunday 9am to 6pm predniSONE 5 MG TABS Tamsulosin HCl 0.4 MG CAPS You can get these medications from any pharmacy Bring a paper prescription for each of these medications ceFAZolin injection Follow-up: [facility] [employer], [address] [address] Michael Maldonado MD 0458 [facility] [address] [place] [phone] Follow up Please call to schedule hospital follow-up/INR check Upcoming Appointments (up to five)-Some appointments for Medical Center outpatient clinics or diagnostic testing locations are not displayed below Provider Department Dept Phone 07/26/2023 11:00 AM FER TESTING, [facility] Cardiovascular Imaging Lab [facility] Arrive at: Arrive to [facility] Registration Desk [phone] 07/30/2023 10:00 AM Titi Duarte (John)[facility] [employer] [facility] Arrive at: Arrive to [facility] Registration Desk [phone] 08/02/2023 10:00 AM Asha Bundy Infectious Diseases Care [facility] Outpatient Care [phone] documented [facility] this [facility] Miscellaneous Notes After Visit Summary reviewed with patient by Asha, and all questions answered. RN reviewed what medications patient still needs for the day, patient verbalized understanding. IV dc'd with no difficulty and tip intact. Telemetry dc'd. VS stable at time of discharge. Patient being discharged to Home by Wheelchair to lobby with Family. No patient belongings left at bedside. No further issues at time of discharge. Report called to [facility] Problem: Patient Care Overview Goal: Plan of Care Review Outcome: Ongoing Goal: Individualization & Mutuality Outcome: Ongoing Goal: Discharge Needs Assessment Outcome: Ongoing Goal: Interdisciplinary Rounds/Family Conf Outcome: Ongoing Problem: OT - Endurance Goal: Endurance Functional Mobility - Patient will complete distance needed for common household mobility with no greater than 1 rest breaks for improved tolerance to safely complete I/ADL's Outcome: Ongoing Problem: Fall/Trauma/Injury Risk (Adult) Goal: Fall/Trauma/Injury Risk: Absence of Trauma/Injury/Falls Description: Patient will demonstrate the desired outcomes. Outcome: Ongoing Goal: Knowledge of risk factors/behavior modification Description: Knowledge of risk factors/behavior modification for fall/injury prevention Outcome: Ongoing PICC line continues to bleed from site. Able to flush and draw blood from it. Dressing changed once for leaking of blood that had pooled under dressing yesterday at around 0400. Bled again at 0500 through dressing onto bed. Cleaned around site after drawing AM labs and wrapped with gauze, secured with Kerlix and Coban. Problem: Patient Care Overview Goal: Plan of Care Review Outcome: Ongoing Goal: Individualization & Mutuality Outcome: Ongoing Goal: Discharge Needs Assessment Outcome: Ongoing Problem: Fall/Trauma/Injury Risk (Adult) Goal: Fall/Trauma/Injury Risk: Absence of Trauma/Injury/Falls Description: Patient will demonstrate the desired outcomes. Outcome: Ongoing Goal: Knowledge of risk factors/behavior modification Description: Knowledge of risk factors/behavior modification for fall/injury prevention Outcome: Ongoing Patient anxious, requesting AM lorazepam dose early. Will order retime so that he receives it now. Problem: Patient Care Overview Goal: Plan of Care Review Outcome: Ongoing Goal: Individualization & Mutuality Outcome: Ongoing Goal: Discharge Needs Assessment Outcome: Ongoing Goal: Interdisciplinary Rounds/Family Conf Outcome: Ongoing Problem: Fall/Trauma/Injury Risk (Adult) Goal: Fall/Trauma/Injury Risk: Absence of Trauma/Injury/Falls Description: Patient will demonstrate the desired outcomes. Outcome: Ongoing Goal: Knowledge of risk factors/behavior modification Description: Knowledge of risk factors/behavior modification for fall/injury prevention Outcome: Ongoing Problem: Patient Care Overview Goal: Plan of Care Review Outcome: Ongoing Goal: Individualization & Mutuality Outcome: Ongoing Goal: Discharge Needs Assessment Outcome: Ongoing Goal: Interdisciplinary Rounds/Family Conf Outcome: Ongoing 06/11/23 1451 Patient Choice for Post-Acute Providers Resumption of care? No Establishing care? Yes Level of care for choice Home Health Care Preferred geographic region Discussed and honored Source of list Aidin List was provided to Patient Method of delivery In Person Is the provider part of a joint venture or have a financial relationship with discharging hospital? No Met with patient at bedside to discuss Aidin generated list of available home healthcare providers. Discussed HH services to be provided, expectation of HH services, confirmed pt is homebound and answered all questions. Patient agreeable to have the below agency provide SN for infusion services: [facility] [place] [place] [address] Fax: [phone] Addendum at 9875: Patient will also use [facility] for infusion pharmacy: [place], an [facility] - [facility] [address] [place] [id number] NATAN Mills RN Problem: Patient Care Overview Goal: Plan of Care Review Outcome: Ongoing Flowsheets (Taken 06/08/20232026) Plan Of Care Reviewed With: patient Goal: Individualization & Mutuality Outcome: Ongoing Problem: Fall/Trauma/Injury Risk (Adult) Goal: Fall/Trauma/Injury Risk: Absence of Trauma/Injury/Falls Description: Patient will demonstrate the desired outcomes. Outcome: Ongoing Problem: OT - Endurance Goal: Endurance Functional Mobility - Patient will complete distance needed for common household mobility with no greater than 1 rest breaks for improved tolerance to safely complete I/ADL's Outcome: Ongoing Problem: PT - General Goals Goal: Ambulation - Patient will ambulate 250 feet with independence and without an assistive device to improve ability to safely navigate home and community. Outcome: Adequate for Discharge Problem: Patient Care Overview Goal: Plan of Care Review Outcome: Ongoing Goal: Individualization & Mutuality Outcome: Ongoing Goal: Discharge Needs Assessment Outcome: Ongoing Goal: Interdisciplinary Rounds/Family Conf Outcome: Ongoing Problem: Patient Care Overview Goal: Plan of Care Review Outcome: Ongoing Goal: Individualization & Mutuality Outcome: Ongoing Goal: Discharge Needs Assessment Outcome: Ongoing Goal: Interdisciplinary Rounds/Family Conf Outcome: Ongoing documented in this encounter [facility] 06-19-2023 Miscellaneous Notes After Visit Summary reviewed with patient by Asha, and all questions answered. RN reviewed what medications patient still needs for the day, patient verbalized understanding. IV dc'd with no difficulty and tip intact. Telemetry dc'd. VS stable at time of discharge. Patient being discharged to Home by Wheelchair to lobby with Family. No patient belongings left at bedside. No further issues at time of discharge. Report called to [facility] Problem: Patient Care Overview Goal: Plan of Care Review Outcome: Ongoing Goal: Individualization & Mutuality Outcome: Ongoing Goal: Discharge Needs Assessment Outcome: Ongoing Goal: Interdisciplinary Rounds/Family Conf Outcome: Ongoing Problem: OT - Endurance Goal: Endurance Functional Mobility - Patient will complete distance needed for common household mobility with no greater than 1 rest breaks for improved tolerance to safely complete I/ADL's Outcome: Ongoing Problem: Fall/Trauma/Injury Risk (Adult) Goal: Fall/Trauma/Injury Risk: Absence of Trauma/Injury/Falls Description: Patient will demonstrate the desired outcomes. Outcome: Ongoing Goal: Knowledge of risk factors/behavior modification Description: Knowledge of risk factors/behavior modification for fall/injury prevention Outcome: Ongoing PICC line continues to bleed from site. Able to flush and draw blood from it. Dressing changed once for leaking of blood that had pooled under dressing yesterday at around 0400. Bled again at 0500 through dressing onto bed. Cleaned around site after drawing AM labs and wrapped with gauze, secured with Kerlix and Coban. Problem: Patient Care Overview Goal: Plan of Care Review Outcome: Ongoing Goal: Individualization & Mutuality Outcome: Ongoing Goal: Discharge Needs Assessment Outcome: Ongoing Problem: Fall/Trauma/Injury Risk (Adult) Goal: Fall/Trauma/Injury Risk: Absence of Trauma/Injury/Falls Description: Patient will demonstrate the desired outcomes. Outcome: Ongoing Goal: Knowledge of risk factors/behavior modification Description: Knowledge of risk factors/behavior modification for fall/injury prevention Outcome: Ongoing Patient anxious, requesting AM lorazepam dose early. Will order retime so that he receives it now. Problem: Patient Care Overview Goal: Plan of Care Review Outcome: Ongoing Goal: Individualization & Mutuality Outcome: Ongoing Goal: Discharge Needs Assessment Outcome: Ongoing Goal: Interdisciplinary Rounds/Family Conf Outcome: Ongoing Problem: Fall/Trauma/Injury Risk (Adult) Goal: Fall/Trauma/Injury Risk: Absence of Trauma/Injury/Falls Description: Patient will demonstrate the desired outcomes. Outcome: Ongoing Goal: Knowledge of risk factors/behavior modification Description: Knowledge of risk factors/behavior modification for fall/injury prevention Outcome: Ongoing Problem: Patient Care Overview Goal: Plan of Care Review Outcome: Ongoing Goal: Individualization & Mutuality Outcome: Ongoing Goal: Discharge Needs Assessment Outcome: Ongoing Goal: Interdisciplinary Rounds/Family Conf Outcome: Ongoing 06/11/23 1451 Patient Choice for Post-Acute Providers Resumption of care? No Establishing care? Yes Level of care for choice Home Health Care Preferred geographic region Discussed and honored Source of list Aidin List was provided to Patient Method of delivery In Person Is the provider part of a joint venture or have a financial relationship with discharging hospital? No Met with patient at bedside to discuss Aidin generated list of available home healthcare providers. Discussed HH services to be provided, expectation of HH services, confirmed pt is homebound and answered all questions. Patient agreeable to have the below agency provide SN for infusion services: [facility], [address] [address] Fax: [phone] Addendum at 1529: Patient will also use [facility] for infusion pharmacy: [facility], an [facility] [address] [place] [address] NATAN Mills RN Problem: Patient Care Overview Goal: Plan of Care Review Outcome: Ongoing Flowsheets (Taken 06/08/20232026) Plan Of Care Reviewed With: patient Goal: Individualization & Mutuality Outcome: Ongoing Problem: Fall/Trauma/Injury Risk (Adult) Goal: Fall/Trauma/Injury Risk: Absence of Trauma/Injury/Falls Description: Patient will demonstrate the desired outcomes. Outcome: Ongoing Problem: OT - Endurance Goal: Endurance Functional Mobility - Patient will complete distance needed for common household mobility with no greater than 1 rest breaks for improved tolerance to safely complete I/ADL's Outcome: Ongoing Problem: PT - General Goals Goal: Ambulation - Patient will ambulate 250 feet with independence and without an assistive device to improve ability to safely navigate home and community. Outcome: Adequate for Discharge Problem: Patient Care Overview Goal: Plan of Care Review Outcome: Ongoing Goal: Individualization & Mutuality Outcome: Ongoing Goal: Discharge Needs Assessment Outcome: Ongoing Goal: Interdisciplinary Rounds/Family Conf Outcome: Ongoing Problem: Patient Care Overview Goal: Plan of Care Review Outcome: Ongoing Goal: Individualization & Mutuality Outcome: Ongoing Goal: Discharge Needs Assessment Outcome: Ongoing Goal: Interdisciplinary Rounds/Family Conf Outcome: Ongoing documented in this encounter [facility] 06-19-2023 Nurse Note After Visit Summary reviewed with patient by Asha, and all questions answered. RN reviewed what medications patient still needs for the day, patient verbalized understanding. IV dc'd with no difficulty and tip intact. Telemetry dc'd. VS stable at time of discharge. Patient being discharged to Home by Wheelchair to lobby with Family. No patient belongings left at bedside. No further issues at time of discharge. [facility] 06-19-2023 History of Present illness Narrative Final Discharge Planning and Transportation Final Discharge Planning Discharge Disposition: Home with Infusion Services at Discharge: Detention Selected Continued Care - Admitted Since 06/06/2023 Dialysis/Infusion Coordination complete. Service Provider Selected Services Address Phone Fax Patient Preferred [facility] [address] [place] [address] [phone] -- Current Capacity last updated by Dominique Solorio RN on 03/28/2023 1518 Home IV ATBs Home Medical Care Coordination complete. 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 CM had conversation with patient/caregiver related to specialty care follow-up. Barriers identified: None Outpatient CM was not contacted related to barriers Sandra Lopez RN, BSN Clinical [facility] Home Health Referral Educated Patient on Home Care and services available. Patient agreeable to Detention services with [facility] and [facility] for infusion pharmacy. 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 Emergency Contacts Extended Emergency Contact Information Primary Emergency Contact: thai Lin Relation: Significant Other Secondary Emergency Contact: jackeline landon Relation: Child Ordering Physician: Wiley Covington MD Following Physician:Louie Burns, DO Agreeable to Follow: Yes Date/Time of Call: 06/08/23 at 1630 Spoke with: Dunia Primary Diagnosis & Reason for Services: Acute bacterial endocarditis [I33.0] - Primary [employer] (Labs, Wounds, Infusions etc.): Teachable Caregiver: Name:Thai Lin Relation to patient: Contact #:[phone] Is teachable available for SOC visit? Yes IV/TPN/Tube Feed: Infusion Company:[facility] [employer] Infectious Disease Physician:Dr. Kelvin Soliz Infusion/TF Orders:Cefazolin 6 gm every 24 hour over 24 hours Next Dose Due: continuous Line Type: single lumen PICC IV Method of Administration Planned: Elastomeric Labs: Type:Chem-6 (Including serum creatinine) without Glucose every Sunday - CBC w/diff every Sunday - Gentamicin trough (goal gentamicin trough is <1.0, a Gentamicin trough and Chem-6 need to be checked every every Sunday and for the first two weeks after being discharged from the hospital then every Sunday on a weekly basis) - Hepatic Function Panel every Sunday Frequency: Source Site: PICC Send Results To: fax to [phone], attention (ID Attending): Dr. Kelvin Soliz (ID Fellow): [facility] General Report/ Additional Comments: Markus Nava is a 78 y.o. 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 Expected Discharge Date: 06/19/2023 NATAN Mills RN This PACC RN called Dede with [facility] at [phone] to let her know that patient is discharging today. DC documents uploaded to [employer] and faxed to [phone]. Bianca Chung, PACC RN Images from the original note were not included. [facility] ([facility]) Note: Bedside Delivery Documentation The following prescription(s) were tubed to the patient's bedside. [facility] ([place]) [phone] [facility] [phone] [facility] Bedside Delivery [phone] [facility] [phone] [facility] Bedside Delivery [phone] [place] [phone] [facility] Bedside Delivery [phone] [place] [phone] [place] [phone] Markus is to get final dose of gentamicin tomorrow and then will be ready for discharge tomorrow. I updated [facility] and [facility] (via [place]) of this plan. [facility] has the atb script; I uploaded PICC information. Gabriela Harding RN Clinical [facility]ner Images from the original note were not included. [facility] ([facility]) Note: Non-Verbal Med Rec [facility] received the following discharge prescription(s): Total cost is $15.67. I have reviewed the Discharge Rx Reconciliation Report. The discharge prescription(s) will be delivered to the patient on 06/18/2023. Quentin Rodriguez [facility],PharmD Specialty ([place]) [phone] [facility] [phone] [place] Bedside Delivery [phone] [facility] [phone] [facility] Bedside Delivery [phone] [place] [phone] [facility] Bedside Delivery [phone] [place] [phone] [place] [phone] [facility] Medicine Progress Note Patient: Markus Nava, : 1945, Impression / Plan Markus Nava is a 78 y.o. 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 MSSA bacteremia and endocarditis of prosthetic AV valve Initially with septic shock at OSH, now resolved. Found to have MSSA bacteremia. Prosthetic AV vegetation confirmed on OSH FER. - Continue cefazolin IV for 6 weeks (EOT 08/02) and gentamicin for a 2 week course (EOT 06/19) - patient had a single lumen picc. Will keep him in house until tomorrow and end gentamicin after his dose tomorrow morning. - Serial monitoring of creatinine while on gentamicin - Plan for outpatient ID and [facility] follow-up. Supratherapeutic INR - resolved Mechanical aortic valve present INR 3.8 on admission to OSH, 3.4 today per OSH records. INR 2.5 on admission here. - INR at goal. Stop heparin gtt today Atrial fibrillation CHADSVASC 3 (age, HTN). RVR at OSH, started on amiodarone. - Continue amiodarone 200 mg daily - Continue metoprolol 50mg BID - Telemetry - cont. coumadin as above History of GI bleed Diverticulitis s/p partial colectomy Suspected Crohn's disease History of diverticulitis s/p partial colectomy, but recently with GI bleed in Apr 2023. Colonoscopy with concern for Crohn's disease, discharged on prednisone 20 mg without taper - Reviewed discharge summary from this hospitalization today. Has been on prednisone 20 mg about 6 weeks already and does not have follow-up until August with GI - at this time, I think risk of continued immunosuppression is outweighed by potential benefit of scaling down prednisone to treat his current (life-threatening) infection - Decrease prednisone to 15 mg daily x 1 week (started 06/16). Then decrease by 5 mg per week until off. - Discussed PJP ppx with pharmacist and they did not feel strongly about continuing since pred dose decreasing - Encouraged Markus to call Dr. Perez's office (GI) and set up and earlier appointment. He secured an appt. For . Urethral stricture s/p dilation Urology consulted and dilation performed at OSH, brown removed prior to transfer. - Continue flomax, monitor for signs of retention Anxiety - Continue ativan 0.5 mg po BID (outpatient PCP prescribes and he has been on this for years) and duloxetine 60mg daily. Changed ativan to q12 hours to more closely approximate his schedule but would not to be surprised if he asks for nighttime dose early Basal Cell Carcinoma neck - wide excision or Mohs procedure will be done outpatient. Appreciate derm- evaluation. He prefers to follow-up closer to home. Complexity. Any conditions listed below are present on admission unless otherwise specified. DVT prophylaxis with heparin gtt Anticipated Disposition: home tomorrow if HHC can be arranged Code status is Full Code Interval History / Subjective Happy that his INR is therapeutic. We discussed going home tomorrow. He is unsure if his family members will be well enough to pick him up tomorrow. He's going to call them. Objective Temp: [97.9 F (36.6 C)-98.5 F (36.9 C)] 98.5 F (36.9 C) Pulse (Heart Rate): [68-70] 68 Resp Rate: [16-18] 18 BP: (103-155)/(53-68) 155/68 O2 Sat (%): [94 %-100 %] 94 % Physical Exam Gen: A, A, NAD ENT: MMM Resp: CTA bilat, normal effort Cardio: RRR, prosthetic valve click, normal S1, S2, 1+ b/l DADA GI: S/NT/ND, NABS Psych: Ox3, appropriate affect and cognition Skin: Right arm picc dressing clean and dry Data Review WBC/Hgb/Hct/Plts: --/--/--/270 (06/17 1259) Na/K+/Phos/Mg/Ca: 138/4.6/--/2.0/-- (06/18 608) Bun/Creat/Cl/CO2/Glucose: 20/1.03/102/28/-- (06/18 608) Ptt/Pt/Inr: 123.4/26.5/2.5 (06/18 608) Signed, Wiley Covington MD [facility] Medicine Progress Note Patient: Markus Nava, : 1945, Impression / Plan Markus Nava is a 78 y.o. 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 MSSA bacteremia and endocarditis of prosthetic AV valve Initially with septic shock at OSH, now resolved. Found to have MSSA bacteremia. Prosthetic AV vegetation confirmed on OSH FER. - Continue cefazolin IV for 6 weeks (EOT 08/02) and gentamicin for a 2 week course (EOT 06/19) - patient had a single lumen picc. I suspect he'll probably be in house until gent is completed anyway for INR purposes. - Serial monitoring of creatinine while on gentamycin Supratherapeutic INR - resolved Mechanical aortic valve present INR 3.8 on admission to OSH, 3.4 today per OSH records. INR 2.5 on admission here. - INR currently low. Goal 2.5 - Go back down to 6.5 mg tonight (8 mg Sunday only) Atrial fibrillation CHADSVASC 3 (age, HTN). RVR at OSH, started on amiodarone. - Continue amiodarone 200 mg daily - Continue metoprolol 50mg BID - Telemetry - cont. coumadin as above History of GI bleed Diverticulitis s/p partial colectomy Suspected Crohn's disease History of diverticulitis s/p partial colectomy, but recently with GI bleed in Apr 2023. Colonoscopy with concern for Crohn's disease, discharged on prednisone 20 mg without taper - Reviewed discharge summary from this hospitalization today. Has been on prednisone 20 mg about 6 weeks already and does not have follow-up until August with GI - at this time, I think risk of continued immunosuppression is outweighed by potential benefit of scaling down prednisone to treat his current (life-threatening) infection - Decrease prednisone to 15 mg daily x 1 week (started 06/16). Then decrease by 5 mg per week until off. - Discussed PJP ppx with pharmacist and they did not feel strongly about continuing since pred dose decreasing - Encouraged Markus to call Dr. Perez's office (GI) and set up and earlier appointment. He secured an appt. For . Urethral stricture s/p dilation Urology consulted and dilation performed at OSH, brown removed prior to transfer. - Continue flomax, monitor for signs of retention Anxiety - Continue ativan 0.5 mg po BID (outpatient PCP prescribes and he has been on this for years) and duloxetine 60mg daily. Changed ativan to q12 hours to more closely approximate his schedule but would not to be surprised if he asks for nighttime dose early Leukocytosis - Likely due to known infection as above, continue to monitor Basal Cell Carcinoma neck - wide excision or Mohs procedure will be done outpatient. Appreciate derm- evaluation Complexity. Any conditions listed below are present on admission unless otherwise specified. DVT prophylaxis with heparin gtt Anticipated Disposition: home when INR therapeutic Code status is Full Code Interval History / Subjective Feeling well. States he would not know he was sick if he weren't in the hospital. 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 Objective Temp: [97.6 F (36.4 C)-98.5 F (36.9 C)] 97.6 F (36.4 C) Pulse (Heart Rate): [64-72] 65 Resp Rate: [16-18] 16 BP: (113-137)/(58-70) 130/65 O2 Sat (%): [96 %-99 %] 99 % Weight: [96.5 kg (212 lb 10.1 oz)] 96.5 kg (212 lb 10.1 oz) Physical Exam Gen: A, A, NAD ENT: MMM Resp: CTA bilat, normal effort Cardio: RRR, prosthetic valve click, normal S1, S2, 1+ b/l DADA GI: S/NT/ND, NABS Psych: Ox3, appropriate affect and cognition Skin: Right arm picc dressing clean and dry Data Review Bun/Creat/Cl/CO2/Glucose: --/1.04/--/--/-- (06/17 327) Ptt/Pt/Inr: 91.6/20.0/1.7 (06/17 327) Signed, Wiley Covington MD Hospital Medicine Progress Note Patient: Markus Nava, : 1945, Impression / Plan Markus Nava is a 78 y.o. 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 MSSA bacteremia and endocarditis of prosthetic AV valve Initially with septic shock at OSH, now resolved. Found to have MSSA bacteremia. Prosthetic AV vegetation confirmed on OSH FER. - Continue cefazolin IV for 6 weeks (EOT 08/02) and gentamicin for a 2 week course (EOT 06/19) - patient had a single lumen picc. I suspect he'll probably be in house until gent is completed anyway for INR purposes. - Serial monitoring of creatinine while on gentamycin Supratherapeutic INR - resolved Mechanical aortic valve present INR 3.8 on admission to OSH, 3.4 today per OSH records. INR 2.5 on admission here. - INR currently low. Goal 2.5 - Increase coumadin to 8 mg tonight (takes this higher dose once a week) Atrial fibrillation CHADSVASC 3 (age, HTN). RVR at OSH, started on amiodarone. - Continue amiodarone 200 mg daily - Continue metoprolol 50mg BID - Telemetry - resuming coumadin as above History of GI bleed Diverticulitis s/p partial colectomy Suspected Crohn's disease History of diverticulitis s/p partial colectomy, but recently with GI bleed in Apr 2023. Colonoscopy with concern for Crohn's disease, discharged on prednisone 20 mg without taper - Reviewed discharge summary from this hospitalization today. Has been on prednisone 20 mg about 6 weeks already and does not have follow-up until August with GI - at this time, I think risk of continued immunosuppression is outweighed by potential benefit of scaling down prednisone to treat his current (life-threatening) infection - Decrease prednisone to 15 mg daily x 1 week (started 06/16). Then decrease by 5 mg per week until off. - Discussed PJP ppx with pharmacist and they did not feel strongly about continuing since pred dose decreasing - Encouraged Markus to call Dr. Perez's office (GI) and set up and earlier appointment. He secured an appt. For . Urethral stricture s/p dilation Urology consulted and dilation performed at OSH, brown removed prior to transfer. - Continue flomax, monitor for signs of retention Anxiety - Continue ativan 0.5 mg po BID (outpatient PCP prescribes and he has been on this for years) and duloxetine 60mg daily. Changed ativan to q12 hours to more closely approximate his schedule but would not to be surprised if he asks for nighttime dose early Leukocytosis - Likely due to known infection as above, continue to monitor Basal Cell Carcinoma neck - wide excision or Mohs procedure will be done outpatient. Appreciate derm- evaluation Complexity. Any conditions listed below are present on admission unless otherwise specified. DVT prophylaxis with heparin gtt Anticipated Disposition: home when INR therapeutic Code status is Full Code Interval History / Subjective Expresses a lot of anxiety about all his medical problems. Frequently requesting ativan at night early. Having some oozing from his picc line. Redressed by the picc team today. Objective Temp: [98.1 F (36.7 C)-98.5 F (36.9 C)] 98.3 F (36.8 C) Pulse (Heart Rate): [63-68] 68 Resp Rate: [15-16] 16 BP: (120-173)/(61-71) 120/70 O2 Sat (%): [90 %-100 %] 96 % Weight: [97.7 kg (215 lb 6.2 oz)] 97.7 kg (215 lb 6.2 oz) Physical Exam Gen: A, A, NAD ENT: MMM Resp: CTA bilat, normal effort Cardio: RRR, prosthetic valve click, normal S1, S2, 1+ b/l DADA GI: S/NT/ND, NABS Psych: Ox3, appropriate affect and cognition Skin: Right arm pick with some clotted blood noted around it Data Review WBC/Hgb/Hct/Plts: --/--/--/269 (06/15 1552) Ptt/Pt/Inr: 116.6/17.2/1.4 (06/16 0636) Signed, Wiley Covington MD Images from the original note were not included. CARDIOLOGY CONSULT PROGRESS NOTE Cardiology consult 06/06/2023 for 78y M with hx of aortic valve replacement now with MSSA bacteremia and AV endocarditis HPI I saw Mr. Markus Nava in follow-up on 06/15/2023. He is a 78 y.o. male with a history of streptococcal endocarditis of AV s/p AVR (1996) c/b graft dilation and aortic insufficiency s/p Bentall procedure (2001), AF, diverticulitis s/p partial colectomy with c/f Crohn's, anxiety and depression who initially presented to an OSH 06/02/23 with fevers and chills, found to have MSSA bacteremia and septic shock c/b AF with RVR, with FER revealing a vegetation on the aortic valve prompting tx to [facility] 06[facility]. 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 FER 06/05/23 showed AV freely mobile mass c/w vegetation measuring 1.1cm x 0.7cm. Blood cultures NTD since 06/08/22, last positive on 06/06/22 -CTS Dr. Sabillon following, recommend completing AB course and follow-up echo in 4-6 weeks with outpatient CTS follow-up -ABs per ID; -consider daily 12-lead ECGs and continuous telemetry to monitor for high degree AV block -please set him up with his outpatient pediatric anesthesiologist in [place] to be seen within 1 month of discharge History of AVE s/p mechanical AVR: history of AVE 2/2 strep s/p AVR and reconstruction of RVOT using 29mm pulmonary homograft c/b graft dilation and AI s/p modified Bentall procedure with AVR and aortic root replacement using 25mm [employer] [place] and hemashield composite graft in 2001. -will need systemic AC with warfarin and heparin gtt bridge until goal INR 2.5-3.5 given mechanical AV with risk factors (AF). Would monitor closely for any evidence of septic emboli to brain given c/f hemorrhagic conversion while on AC. Acute HFmrEF: TTE 06/02/23 showed LVEF 40-45% and FER 06/05/23 showed LVEF 50% in setting of sepsis and AVE and mild to moderate MR. -net negative 71 ml per 24 hours, net negative 5.4 liters this admit -remains with lower extremity edema -consider IV lasix as warranted. -GDMT: would transition metoprolol to Toprol XL 50 mg BID once closer to discharge, will plan on folding in losartan 12.5 mg daily per BP tolerance -continue strict I/Os, daily weight, optimize lytes to keep K>4 and Mg>2 Paroxysmal atrial fibrillation: known history since 2001. RVR noted at OSH in the setting of MSSA bacteremia, septic shock. Initiated on amio gtt and transitioned to PO amio. -currently in rate-controlled AF -[id number] is 3, continue systemic AC with warfarin and heparin gtt bridge. Goal INR 2.5-3.5 d/t mechanical AV. -ongoing supportive care of underlying illness, volume status -maintain electrolytes for K>4, Mg>2 -continue telemetry Other hospital problems: Basal cell carcinoma: found on right neck; diagnosed by derm this admission Supratherapeutic INR: resolved; on heparin gtt Diverticulitis s/p partial colectomy: ?Crohn's disease on colonoscopy, on prednisone and PPI. Follows with outpatient GI Urethral stricture: s/p dilation by urology at OSH, on flomax Anxiety/depression: on ativan and duloxetine History of GIB: 04/2023 Chronic ROGER: holding home iron d/t acute infection INTERVAL HISTORY/REVIEW OF SYSTEMS Over the last day, he had no acute events. He denies chest pain, shortness of breath, lightheadedness and dizziness. Remains with lower extremity edema although feels as if this is improving. PHYSICAL EXAM BP 117/58 (BP Location: Left arm, BP Position: Sitting) Pulse 59 Temp 97.9 F (36.6 C) (Oral) Resp 14 Ht 1.829 m (6') Comment: estimated Wt 97.5 kg (214 lb 14.4 oz) SpO2 94% BMI 29.15 kg/m Smoking Status Never Constitutional: Awake and in no distress. Chest: Respiratory effort is unlabored. Lungs are clear without rales, rhonchi or wheezes. Cardiovascular: No JVD appreciated. Irregularly irregular rate and rhythm; S1 normal, S2 normal. Exam reveals no gallop, no friction rub. No murmur heard. Valve click present. Abdomen: Soft, non-tender, non-distended. +BS. Extremities: 2+ BLE pitting edema. No stasis dermatitis. Radial, dorsalis pedis and posterior tibial pulses are 2+ bilaterally. Neurological: Alert and oriented to person, place and time. Skin: Warm, dry. No cyanosis. Nails show no clubbing. CARDIOVASCULAR IMAGING/DATA Cardiac Catheterization 2002 ([facility]): - Left Coronary Artery: no angiographically definable disease - Right Coronary Artery: no angiographically definable disease {dominant) TTE 02/03/1997: - LVEF 65% - Large AV vegetations; severe AI - No definite MV vegetation seen (mild focal prolapse of a scallop of the valve without significant leak.) 24 hour telemetry (personally reviewed): AF 60-70's. ADDITIONAL DATA REVIEWED Intake/Output Summary (Last 24 hours) at 06/15/2023 1545 Last data filed at 06/15/2023 1357 Gross per 24 hour Intake 2160.26 ml Output 3225 ml Net -1064.74 ml Temp: [97.9 F (36.6 C)-98.6 F (37 C)] 97.9 F (36.6 C) Pulse (Heart Rate): [59-72] 59 Resp Rate: [14-16] 14 BP: (113-154)/(55-70) 117/58 O2 Sat (%): [94 %-100 %] 94 % Oxygen Therapy O2 Sat (%): 94 % O2 Device: room air Body mass index is 29.15 kg/m . LABS Bun/Creat/Cl/CO2/Glucose: 20/1.03/103/28/93 (06/15 314) Na/K+/Phos/Mg/Ca: 139/4.4/--/1.9/-- (06/15 314) No results found for: BNP Lab Results Component Value Date CHOLESTEROL 183 08/28/2001 CHOLESTEROL 183 08/28/2001 TRIG 121 08/28/2001 HDL 35 (L) 08/28/2001 CURRENT MEDICATIONS: ceFAZolin (ANCEF) 3 g in Sodium chloride 0.9%, with overfill 290 mL IV infusion 3 g Intravenous Q12HNS DULoxetine 60 mg Oral Daily gentamicin 60 mg Intravenous Q12HNS LORazepam 0.5 mg Oral Q12H Metoprolol 50 mg Oral BID Pantoprazole 40 mg Oral Daily [START ON 06/16/2023] predniSONE 15 mg Oral Daily Tamsulosin HCl 0.4 mg Oral Daily [Held by provider] Warfarin 6.5 mg Oral Daily early evening Warfarin 6.5 mg Oral Daily early evening heparin 14 Units/kg/hr (06/15/23 1326) [id number] Score for Atrial Fibrillation Stroke Risk Age in Years: 75+ Sex: Male CHF History: Yes Hypertension History: No Stroke/TIA/Thromboembolism History: No Vascular Disease History: No Diabetes History: No [id number] Score: 3 Complexity. Thank you for this consult. Please call with questions. We will sign off at this time. [facility] Consult Service Phone: [phone] [facility] Medicine Progress Note Patient: Markus Nava, : 1945, Impression / Plan Markus Nava is a 78 y.o. 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 MSSA bacteremia and endocarditis of prosthetic AV valve Initially with septic shock at OSH, now resolved. Found to have MSSA bacteremia. Prosthetic AV vegetation confirmed on OSH FER. - Continue cefazolin IV for 6 weeks (EOT 08/02) and gentamicin for a 2 week course (EOT 06/19) - patient had a single lumen picc. I suspect he'll probably be in house until gent is completed anyway for INR purposes. Supratherapeutic INR - resolved Mechanical aortic valve present INR 3.8 on admission to OSH, 3.4 today per OSH records. INR 2.5 on admission here. - INR currently low. Goal 2.5 - Resume coumadin but increase to home dosing of 6.5 mg today in light of stopping bactrim. Atrial fibrillation CHADSVASC 3 (age, HTN). RVR at OSH, started on amiodarone. - Continue amiodarone 200 mg daily - Continue metoprolol 50mg BID - Telemetry - resuming coumadin as above History of GI bleed Diverticulitis s/p partial colectomy Suspected Crohn's disease History of diverticulitis s/p partial colectomy, but recently with GI bleed in Apr 2023. Colonoscopy with concern for Crohn's disease, discharged on prednisone 20 mg without taper - Reviewed discharge summary from this hospitalization today. Has been on prednisone 20 mg about 6 weeks already and does not have follow-up until August with GI - at this time, I think risk of continued immunosuppression is outweighed by potential benefit of scaling down prednisone to treat his current (life-threatening) infection - Decrease prednisone to 15 mg daily x 1 week. Then decreased by 5 mg per week until off. - Discussed PJP ppx with pharmacist and they did not feel strongly about continuing since pred dose decreasing - Encouraged Markus to call Dr. Perez's office (GI) and set up and earlier appointment Urethral stricture s/p dilation Urology consulted and dilation performed at OSH, brown removed prior to transfer. - Continue flomax, monitor for signs of retention Anxiety - Continue ativan 0.5 mg po BID (outpatient PCP prescribes and he has been on this for years) and duloxetine 60mg daily. Changed ativan to q12 hours to more closely approximate his schedule Leukocytosis - Likely due to known infection as above, continue to monitor Basal Cell Carcinoma - wide excision or Mohs procedure will be done outpatient. Appreciate derm- evaluation Complexity. Any conditions listed below are present on admission unless otherwise specified. DVT prophylaxis with heparin gtt Anticipated Disposition: home Code status is Full Code Interval History / Subjective Discussed prednisone dosing and follow-up after I reviewed last GI notes. States he missed his capsule endoscopy and GI follow-up on 06/11 as he was hospitalized at [facility]. Does not have another follow-up until August. Objective Temp: [97.9 F (36.6 C)-98.6 F (37 C)] 97.9 F (36.6 C) Pulse (Heart Rate): [59-72] 59 Resp Rate: [14-16] 14 BP: (113-154)/(55-70) 117/58 O2 Sat (%): [94 %-100 %] 94 % Physical Exam Gen: A, A, NAD ENT: MMM Resp: CTA bilat, normal effort Cardio: RRR, prosthetic valve click, normal S1, S2, 1+ b/l DADA GI: S/NT/ND, NABS Psych: Ox3, appropriate affect and cognition Data Review Na/K+/Phos/Mg/Ca: 139/4.4/--/1.9/-- (06/15 314) Bun/Creat/Cl/CO2/Glucose: 20/1.03/103/28/93 (06/15 314) Ptt/Pt/Inr: 82.6/15.5/1.2 (06/15 314) Signed, Wiley Covington MD [facility] Medicine Progress Note Patient: Markus Nava, : 1945, Impression / Plan Markus Nava is a 78 y.o. 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 MSSA bacteremia and endocarditis of prosthetic AV valve Initially with septic shock at OSH, now resolved. Found to have MSSA bacteremia. Prosthetic AV vegetation confirmed on OSH FER. - Continue cefazolin 3g q12h over 12 hours for 6 weeks (EOT 08/02) and gentamicin 80mg q8h for a 2 week course (EOT 06/19) - patient had a single lumen picc placed today. Given this, may complicate gent infusion if he's ready to go before 06/19 Supratherapeutic INR - resolved Mechanical aortic valve present INR 3.8 on admission to OSH, 3.4 today per OSH records. INR 2.5 on admission here. - INR currently low. Goal 2.5 - Resume coumadin at 5 mg today given I will also be starting Bactrim. Will need to stay in the hospital on heparin gtt for bridging anticoagulation until INR is therapeutic. Atrial fibrillation CHADSVASC 3 (age, HTN). RVR at OSH, started on amiodarone. - Continue amiodarone 200 mg daily - Continue metoprolol 50mg BID - Telemetry - resuming coumadin as above History of GI bleed Diverticulitis s/p partial colectomy Suspected Crohn's disease History of diverticulitis s/p partial colectomy, but recently with GI bleed in Apr 2023. Colonoscopy with concern for Crohn's disease, discharged on steroid taper. - Continue pantoprazole 40 mg daily - Continue prednisone 20mg daily- per patient, he thinks he's been on this well more than a month. Unclear what the plan was for taper but, at this point, needs PJP ppx. Start Bactrim. - Outpatient follow up with GI Urethral stricture s/p dilation Urology consulted and dilation performed at OSH, brown removed prior to transfer. - Continue flomax, monitor for signs of retention Anxiety - Continue ativan 0.5 mg po BID (outpatient PCP prescribes and he has been on this for years) and duloxetine 60mg daily Leukocytosis - Likely due to known infection as above, continue to monitor Basal Cell Carcinoma - wide excision or Mohs procedure will be done outpatient. Appreciate derm- evaluation Complexity. Any conditions listed below are present on admission unless otherwise specified. DVT prophylaxis with heparin gtt Anticipated Disposition: home Code status is Full Code Interval History / Subjective No events over night, afebrile Objective Temp: [98.3 F (36.8 C)-98.7 F (37.1 C)] 98.6 F (37 C) Pulse (Heart Rate): [63-71] 63 Resp Rate: [14-18] 18 BP: (107-136)/(53-63) 107/53 O2 Sat (%): [95 %-98 %] 97 % Physical Exam Gen: A, A, NAD Neck : pearly lesion on the right neck , right neck line in place ENT: MMM Resp: CTA bilat, normal effort Cardio: RRR, normal S1, S2, No DADA GI: S/NT/ND, NABS Psych: Ox3, appropriate affect and cognition Data Review Na/K+/Phos/Mg/Ca: 138/4.2/--/1.9/-- (06/14 357) Bun/Creat/Cl/CO2/Glucose: 22/1.11/104/26/132 (06/14 357) Ptt/Pt/Inr: 85.3/16.3/1.3 (06/14 357) Cxr pulm edema Discharge Plan Expected Discharge Date: 06/18/2023 Referred Level of Care: Home Health/Home Infusion Barriers: INR hold Current Referrals and Status--Accepted/Reserved [facility], [place] [address] [place] [address] CM updated in Rounds. Patient discharge anticipated early next week- INR hold. Patient has home health/home infusion arranged by [facility] -- only accepting agency has nursing available for SOC early next week (no weekend availability). CM contacted patient's Pin Game Machine Inspector Office-Dr Maldonado with [facility] to verify ability to continue managing coumadin/INR when discharged. CM will continue follow up and assist with discharge planning. Radha KEN Clinical Slubber Runner [facility] Images from the original note were not included. CARDIOLOGY CONSULT PROGRESS NOTE Cardiology consult 06/06/2023 for 78y M with hx of aortic valve replacement now with MSSA bacteremia and AV endocarditis HPI I saw Mr. Markus Nava in follow-up on 06/14/2023. He is a 78 y.o. male with a history of streptococcal endocarditis of AV s/p AVR (1996) c/b graft dilation and aortic insufficiency s/p Bentall procedure (2001), AF, diverticulitis s/p partial colectomy with c/f Crohn's, anxiety and depression who initially presented to an OSH 06/02/23 with fevers and chills, found to have MSSA bacteremia and septic shock c/b AF with RVR, with FER revealing a vegetation on the aortic valve prompting tx to [facility] on 06/06/2023. 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 FER 06/05/23 showed AV freely mobile mass c/w vegetation measuring 1.1cm x 0.7cm. Blood cultures NTD since 06/08/22, last positive on 06/06/22 -CTS Dr. Sabillon following, recommend completing AB course and follow-up echo in 4-6 weeks with outpatient CTS follow-up -ABs per ID; PICC placed today -consider daily 12-lead ECGs and continuous telemetry to monitor for high degree AV block -please set him up with his outpatient pediatric anesthesiologist in [place] to be seen within 1 month of discharge History of AVE s/p mechanical AVR: history of AVE 2/2 strep s/p AVR and reconstruction of RVOT using 29mm pulmonary homograft c/b graft dilation and AI s/p modified Bentall procedure with AVR and aortic root replacement using 25mm [place] and hemashield composite graft in 2001. -will need systemic AC with warfarin and heparin gtt bridge until goal INR 2.5-3.5 given mechanical AV with risk factors (AF). Would monitor closely for any evidence of septic emboli to brain given c/f hemorrhagic conversion while on AC. Acute HFmrEF: TTE 06/02/23 showed LVEF 40-45% and FER 06/05/23 showed LVEF 50% in setting of sepsis and AVE and mild to moderate MR. -net negative 71 ml per 24 hours, net negative 5.4 liters this admit -remains with lower extremity edema -can consider low dose IV lasix 20 mg x 1 today -GDMT: would transition metoprolol to Toprol XL 50 mg BID once closer to discharge, will plan on folding in losartan 12.5 mg daily per BP tolerance -continue strict I/Os, daily weight, optimize lytes to keep K>4 and Mg>2 Paroxysmal atrial fibrillation: known history since 2001. RVR noted at OSH in the setting of MSSA bacteremia, septic shock. Initiated on amio gtt and transitioned to PO amio. -currently in rate-controlled AF -[id number] is 3, continue systemic AC with warfarin and heparin gtt bridge. Goal INR 2.5-3.5 d/t mechanical AV. -ongoing supportive care of underlying illness, volume status -maintain electrolytes for K>4, Mg>2 -continue telemetry Other hospital problems: Basal cell carcinoma: found on right neck; diagnosed by derm this admission Supratherapeutic INR: resolved; on heparin gtt Diverticulitis s/p partial colectomy: ?Crohn's disease on colonoscopy, on prednisone and PPI. Follows with outpatient GI Urethral stricture: s/p dilation by urology at OSH, on flomax Anxiety/depression: on ativan and duloxetine History of GIB: 04/2023 Chronic ROGER: holding home iron d/t acute infection INTERVAL HISTORY/REVIEW OF SYSTEMS Over the last day, he had no acute events. He denies chest pain, shortness of breath, lightheadedness and dizziness. He reports lower extremity swelling although feels as if this is improving. PHYSICAL EXAM BP 107/53 (BP Location: Left arm, BP Position: Sitting) Pulse 63 Temp 98.6 F (37 C) (Oral) Resp 18 Ht 1.829 m (6') Comment: estimated Wt 97.5 kg (214 lb 14.4 oz) SpO2 97% BMI 29.15 kg/m Smoking Status Never Constitutional: Awake and in no distress. Chest: Respiratory effort is unlabored. Lungs are clear without rales, rhonchi or wheezes. Cardiovascular: No JVD appreciated. Irregularly irregular rate and rhythm; S1 normal, S2 normal. Exam reveals no gallop, no friction rub. No murmur heard. Valve click present. Abdomen: Soft, non-tender, non-distended. +BS. Extremities: 2+ BLE pitting edema. No stasis dermatitis. Radial, dorsalis pedis and posterior tibial pulses are 2+ bilaterally. Neurological: Alert and oriented to person, place and time. Skin: Warm, dry. No cyanosis. Nails show no clubbing. CARDIOVASCULAR IMAGING/DATA Cardiac Catheterization 2001 ([facility]): - Left Coronary Artery: no angiographically definable disease - Right Coronary Artery: no angiographically definable disease {dominant) TTE 02/03/1997: - LVEF 65% - Large AV vegetations; severe AI - No definite MV vegetation seen (mild focal prolapse of a scallop of the valve without significant leak.) 24 hour telemetry (personally reviewed): AF 60-70's. ADDITIONAL DATA REVIEWED Intake/Output Summary (Last 24 hours) at 06/14/2023 1432 Last data filed at 06/14/2023 1314 Gross per 24 hour Intake 2063.79 ml Output 1750 ml Net 313.79 ml Temp: [98.3 F (36.8 C)-98.7 F (37.1 C)] 98.6 F (37 C) Pulse (Heart Rate): [63-75] 63 Resp Rate: [14-18] 18 BP: (105-136)/(51-63) 107/53 O2 Sat (%): [95 %-98 %] 97 % Oxygen Therapy O2 Sat (%): 97 % O2 Device: room air Body mass index is 29.15 kg/m . LABS Bun/Creat/Cl/CO2/Glucose: 22/1.11/104/26/132 (06/14 357) Na/K+/Phos/Mg/Ca: 138/4.2/--/1.9/-- (06/14 357) No results found for: BNP Lab Results Component Value Date CHOLESTEROL 183 08/28/2001 CHOLESTEROL 183 08/28/2001 TRIG 121 08/28/2001 HDL 35 (L) 08/28/2001 CURRENT MEDICATIONS: ceFAZolin (ANCEF) 3 g in Sodium chloride 0.9%, with overfill 290 mL IV infusion 3 g Intravenous Q12HNS DULoxetine 60 mg Oral Daily gentamicin 60 mg Intravenous Q12HNS Metoprolol 50 mg Oral BID Pantoprazole 40 mg Oral Daily predniSONE 20 mg Oral Daily Tamsulosin HCl 0.4 mg Oral Daily [Held by provider] Warfarin 6.5 mg Oral Daily early evening Warfarin 7 mg Oral Daily early evening heparin 14 Units/kg/hr (06/14/23 1314) [id number] Score for Atrial Fibrillation Stroke Risk Age in Years: 75+ Sex: Male CHF History: Yes Hypertension History: No Stroke/TIA/Thromboembolism History: No Vascular Disease History: No Diabetes History: No [id number] Score: 3 Complexity. Thank you for this consult. Please call with questions. We will continue to follow along. CHE[facility] Cardiology Consult Service Phone: [phone] Department of Pharmacy Pharmacokinetics Progress Note Patient: Mark[facility] Assessment and Plan: Based upon drug level assessment and interpretation (steady state), no changes to the gentamicin dose or dosing interval are indicated at this time. A pharmacist will continue to follow and order drug levels and adjust dosing as clinically appropriate. Gentamicin Regimen at Time of Level: Gentamicin 60 mg IV every 12 hours Desired Therapeutic Trough Concentration: <1 g/mL Last Doses Administered: Dose: Date: Time: 60 mg 06/13/23 0836 Gentamicin Levels: 0.6 g/mL drawn at 2036 on 06/13/23 (drawn 12 hours after previous dose) Most Recent Labs: WBC Count Date Value Ref Range Status 06/08/2023 15.06 (H) 3.73 - 10.10 K/uL Final BUN Date Value Ref Range Status 06/13/2023 21 7 - 25 mg/dL Final Creatinine Date Value Ref Range Status 06/13/2023 1.06 0.70 - 1.30 mg/dL Final I/O last 3 completed shifts: In: 2144.3 [P.O.:1120; I.V.:168.6; IV Piggyback:855.7] Out: 1250 [Urine:1250] Estimated Creatinine Clearance: 70 mL/min (by C-G formula based on SCr of 1.06 mg/dL). Please feel free to contact me with any further questions. Name: Rigoberto Landon RPH Date/Time: 06/13/2023 10:07 PM Outpatient Parenteral Antibiotic Therapy (OPAT): For patients who will be discharged on parenteral (IV) antibiotic therapy, please utilize the OPAT discharge orderset. For patients who are on oral antibiotic therapy, utilization of this orderset is not necessary. Diagnosis: Cardiac Bacteremia MSSA bacteremia with prosthetic/mechanical AV endocarditis FER (06/05/2023) at [facility] with 1.1cm x 0.7cm mobile vegetation on subaortic valvular lesion without surgical candidacy upon transfer to [facility]. History of previous Streptococcal [place] AV endocarditis requiring Ross procedure (1996) complicated by Graft dilation and AI requiring Bentall procedure (2001) Antibiotic(s) with dose: The dosing of these antibiotics is based on today's PK/PD calculations and is subject to change. Please evaluate the patient's medication list and carefully verify their dosing, and infusion rate prior to discharge. Do not hesitate to call the on-call ID Team with any questions. - Cefazolin 6 gm every 24 hour over 24 hours - Gentamicin 60 mg every 12 hour as an intermittent infusion Refer to pharmacy dosing for Gentamicin on day of discharge and ensure stable dosing prior to discharge. Duration of Therapy: Total Duration of therapy: 8 weeks Cefazolin - Start Date: 06/08/2023; Stop Date: 08/03/2023 Gentamicin - Start Date: 06/06/2023; Stop Date: 06/19/2023 Does Patient Need Oral Antibiotic Therapy at the End of Parenteral Therapy: Yes, describe: Cephalexin 1g TID OPAT ID Providers: (ID Attending): Dr. Kelvin Soliz (ID Fellow): Dr. Asha Bundy Labs: Please have the Home Care Company or Extended Care Facility obtain the following labs and fax to [phone], attention (ID Attending): Dr. Kelvin Soliz (ID Fellow): Dr. Asha Bundy - Chem-6 (Including serum creatinine) without Glucose every Sunday - CBC w/diff every Sunday - Gentamicin trough (goal gentamicin trough is <1.0, a Gentamicin trough and Chem-6 need to be checked every every Sunday and for the first two weeks after being discharged from the hospital then every Sunday on a weekly basis) - Hepatic Function Panel every Sunday Imaging: Yes: Prior to discharge, the patient should have FER schedule within 7-10 days of completion of IV antibiotic therapy and prior to ID follow-up visit. Follow-up: Yes - patient should follow-up in the ID Clinic (Please ensure patient is enrolled in [facility] prior to discharge) If the patient is being discharged to a [facility] ([facility]), we will defer ID Care to the Infectious Disease Providers at the [facility] facility. Please instruct the facility that if the patient requires ID Follow-up after discharge, then they should call our office to arrange for an appointment. Central Access: Can Central Access be removed at the end of therapy: Yes Additional notes: Refer to pharmacy dosing for Gentamicin on day of discharge and ensure stable dosing prior to discharge. Follow-up is scheduled with Asha Bundy MD on 08/02/2023 at 10:00AM. Asha Bundy MD [facility] Medicine Progress Note Patient: Markus Nava, : 1945, Impression / Plan Markus Nava is a 78 y.o. 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 MSSA bacteremia and endocarditis of prosthetic AV valve Initially with septic shock at OSH, now resolved. Found to have MSSA bacteremia. Prosthetic AV vegetation confirmed on OSH FER. - Continue cefazolin 3g q12h over 12 hours for 6 weeks and gentamicin 80mg q8h for a 2 week course. Per OSH records, rifampin was also considered but concerns for drug interaction with amiodarone and not yet started. ID said no rifampin needed at this time as well. - Consult ID gentamicin and cefazolin Blood cultures negative from 06/08, last positive 06/06, culture negative to date 06/11 -Dc Internal jugular line and monitor culture results per ID recs, then place picc and get opat. Per 06/11 recs - Consult cardiology and cardiothoracic surgery - Follow up OSH Bcx to ensure clearance of bacteremia Supratherapeutic INR - resolved Mechanical aortic valve present INR 3.8 on admission to OSH, 3.4 today per OSH records. INR 2.5 on admission here. Restart warfarin after PICC Is placed and right internal jugular catheter is removed. Continue with heparin gtt Atrial fibrillation CHADSVASC 3 (age, HTN). RVR at OSH, started on amiodarone. - Continue amiodarone 200 mg daily - Continue metoprolol 50mg BID - Telemetry - Cardiology consult as above JEFF Hold diuresis today, give x1 dose lasix 20mg IV tomorrow. History of GI bleed Diverticulitis s/p partial colectomy Suspected Crohn's disease History of diverticulitis s/p partial colectomy, but recently with GI bleed in Apr 2023. Colonoscopy with concern for Crohn's disease, discharged on steroid taper. - Continue pantoprazole 40 mg daily - Continue prednisone 20mg daily- claify with GI the length of therapy, consider pjp ppx - Outpatient follow up with GI Urethral stricture s/p dilation Urology consulted and dilation performed at OSH, brown removed prior to transfer. - Continue flomax, monitor for signs of retention Anxiety - Continue ativan 0.5 mg po BID prn and duloxetine 60mg daily Leukocytosis - Likely due to known infection as above, continue to monitor Basal Cell Carcinoma - wide excision or Mohs procedure will be done outpatient. Appreciate derm- evaluation DADA Likely from continuous Abx infusions. -5L for the last 24 hours with bid lasix - lasix dose again on 06/12 if cr ok- cr trended upward Complexity. Any conditions listed below are present on admission unless otherwise specified. .Chronic Iron Deficiency Anemia - hold home iron supplementation in setting of acute infection Complexity. Any conditions listed below are present on admission unless otherwise specified. . DVT prophylaxis with heparin gtt, add warfarin once picc placed. Anticipated Disposition: home Code status is Full Code Interval History / Subjective No events over night, afebrile Objective Temp: [97.9 F (36.6 C)-98.8 F (37.1 C)] 98.4 F (36.9 C) Pulse (Heart Rate): [68-75] 75 Resp Rate: [16-20] 16 BP: (105-134)/(51-81) 105/51 O2 Sat (%): [96 %-100 %] 96 % Physical Exam Gen: A, A, NAD Neck : pearly lesion on the right neck , right neck line in place ENT: MMM Resp: CTA bilat, normal effort Cardio: RRR, normal S1, S2, No DADA GI: S/NT/ND, NABS Psych: Ox3, appropriate affect and cognition Data Review WBC/Hgb/Hct/Plts: --/--/--/278 (06/13 1401) Na/K+/Phos/Mg/Ca: 138/4.2/--/2.0/-- (06/13 326) Bun/Creat/Cl/CO2/Glucose: 21/1.06/104/26/95 (06/13 326) Ptt/Pt/Inr: 53.4/17.3/1.4 (06/13 326-06/13 1401) Cxr pulm edema S/w [facility] who informed me that if patient discharges Sunday they don't have weekend RN coverage. Hospitalist and CM notified in morning rounds. Will attempt to DC 06/14 instead of 06/15 if at all possible. NATAN Mills RN Images from the original note were not included. INFECTIOUS DISEASE FOLLOW-UP NOTE IDENTIFYING INFORMATION PATIENT: Markus Nava REFERRING PROVIDER: Heike Milan MD ADMIT DATE: 06/06/2023 TODAY'S DATE: 06/13/2023 REASON FOR CONSULT 78y M with hx of aortic valve replacement now with MSSA bacteremia and AV endocarditis ASSESSMENT Markus Nava is a 78 y.o. male with previous Streptococcal [place] AV endocarditis requiring Ross procedure (1996) complicated by Graft dilation and AI requiring Bentall procedure (2001) on Warfarin admitted with MSSA endocarditis of mechanical valve. MSSA bacteremia with prosthetic/mechanical AV endocarditis FER (06/05/2023) at [facility] with 1.1cm x 0.7cm mobile vegetation on subaortic valvular lesion. Blood cultures initially positive on 06/02/2023. Started on intermittent Cefazolin with Gentamicin prior to transfer to [facility]. History of previous Streptococcal [place] AV endocarditis requiring Ross procedure (1996) complicated by Graft dilation and AI requiring Bentall procedure (2001) Warfarin held and transitioned to Heparin gtt for anticoagulation. High risk medication use: Aminoglycoside requiring close monitoring of renal function and if long-term use, monitoring for ototoxicity. Estimated Creatinine Clearance: 70 mL/min (by C-G formula based on SCr of 1.06 mg/dL). RECOMMENDATIONS Diagnostics Continue to monitor previously collected blood cultures. No repeat cultures necessary at this current time. Therapeutics Continue Cefazolin 3g every 12 hours as continuous infusion. Continue Gentamicin 60mg every 12 hours. Appreciate pharmacy assistance with dosing and monitoring. Refer to today's OPAT for more information. Utilize OPAT discharge order set for antibiotics on discharge. ID team 1 will sign off at this time. Please call aforementioned team with questions. Discussed with attending, Dr. Soliz. Asha Bundy MD Infectious Disease Fellow, PGY-5 SUBJECTIVE/INTERVAL HISTORY Afebrile, hemodynamically stable, and on room air. Continues to do well without back or joint pain. Denies fevers or chills. Cefazolin: 06/04/2023-Current Gentamicin: 06/06/2023-Current Piperacillin-Tazobactam: 06/02/2023-06/04/2023 Vancomycin: 06/02/2023-06/04/2023 Review of systems otherwise negative, unless noted above. INPATIENT MEDICATIONS AMIOdarone 200 mg Oral Daily ceFAZolin (ANCEF) 3 g in Sodium chloride 0.9%, with overfill 290 mL IV infusion 3 g Intravenous Q12HNS DULoxetine 60 mg Oral Daily gentamicin 60 mg Intravenous Q12HNS Metoprolol 50 mg Oral BID Pantoprazole 40 mg Oral Daily predniSONE 20 mg Oral Daily Tamsulosin HCl 0.4 mg Oral Daily [Held by provider] Warfarin 6.5 mg Oral Daily early evening Allergies Allergies Allergen Reactions Alprazolam Other Reaction(s): Other Altered mental status-tolerates lorazepam PHYSICAL EXAM Temp: [97.9 F (36.6 C)-98.7 F (37.1 C)] 98.1 F (36.7 C) Pulse (Heart Rate): [68-74] 69 Resp Rate: [18] 18 BP: (112-140)/(53-81) 134/65 O2 Sat (%): [92 %-100 %] 97 % Physical Exam Constitutional: General: He is not in acute distress. HENT: Head: Atraumatic. Cardiovascular: Rate and Rhythm: Normal rate. Heart sounds: Normal heart sounds. Pulmonary: Effort: Pulmonary effort is normal. Abdominal: General: There is no distension. Palpations: Abdomen is soft. Tenderness: There is no abdominal tenderness. Musculoskeletal: General: No swelling, tenderness or deformity. Skin: General: Skin is warm. Neurological: Mental Status: He is alert. Mental status is at baseline. Psychiatric: Mood and Affect: Mood normal. LABS AND IMAGING Lab Results Component Value Date WBC 15.06 (H) 06/08/2023 HGB 10.2 (L) 06/08/2023 HCT 32.6 (L) 06/08/2023 PLATELET 260 06/11/2023 MCV 90.6 06/08/2023 Lab Results Component Value Date SODIUM 138 06/13/2023 POTASSIUM 4.2 06/13/2023 CHLORIDE 104 06/13/2023 CO2 26 06/13/2023 BUN 21 06/13/2023 CREATSERUM 1.06 06/13/2023 Microbiologic Data (personally reviewed): Blood (06/02/2023, [facility]): MSSA Blood (06/06/2023): MSSA (Line & Peripheral) Blood (06/08/2023): No growth to date Blood (06/11/2023): No growth to date Urine (06/02/2023): MSSA Imaging (personally reviewed): TTE (06/02/2023): Poor visualization of prosthetic AV. FER (06/05/2023): 1.1x0.7cm vegetation on prosthetic AV. Chest XR (06/06/2023): Pulmonary edema. ID Staff: I saw and examined the patient on 06/13/[address] Bundy. I agree with and/or have edited the note to reflect my thoughts including the history/ROS, physical exam, and medical decisions. I have discussed the findings and therapeutic plan with the fellow and we collaborated on medical decision making for this patient. 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 Has been receiving cefazolin plus gentamicin (rifampin was deferred given need for warfarin and concern for drug-drug interaction impeding the treatment of therapeutic levels as well as amiodarone use). Has been evaluated by Cardiology and cardiac surgery -- seems no imminent plans for surgical intervention (not clear patient would be amenable anyway). Microbiology data personally reviewed/interpreted -- blood cultures with growth of Staphylococcus aureus from 06/02/2023 -- 06/06/2023; blood cultures from 06/08/2023 currently without growth. Imaging notable for FER findings as described above. 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 Appreciate ongoing discussion between Cardiology, cardiac surgery, and the patient regarding management options as not clear antimicrobial therapy alone will be sufficient to cure this process. Follow-up blood cultures to ensure durable clearance (including sets obtained after removal of prior central line which was removed 06/11/23). If surgical intervention on the valve is not an option or not pursued, will ultimately need to pursue a prolonged course of IV antimicrobials and likely subsequent group home oral suppression (eg, cephalexin or TMP/SMX). For now, continue IV cefazolin by continuous infusion -- plan for 8-week course from durable blood culture clearance (current day 1 = 06/08/23). Continue gentamicin for synergy (important to monitor renal function and drug levels; appreciate pharmacy assistance and monitoring while on this regimen) -- plan for 2-week course (day 1 = 06/06/23) - please ensure stable dosing and levels prior to discharge. Considered addition of rifampin, but deferred for drug-drug interactions as noted above. Kelvin Soliz MD, PhD [employer] Supervisorprincipal strategist Division of Infectious Diseases Images from the original note were not included. CARDIOLOGY CONSULT PROGRESS NOTE Cardiology consult 06/06/2023 for 78y M with hx of aortic valve replacement now with MSSA bacteremia and AV endocarditis HPI I saw Mr. Markus Nava in follow-up on 06/13/2023. He is a 78 y.o. male with a history of streptococcal endocarditis of AV s/p AVR (1996) c/b graft dilation and aortic insufficiency s/p Bentall procedure (2001), AF, diverticulitis s/p partial colectomy with c/f Crohn's, anxiety and depression who initially presented to an OSH 06/02/23 with fevers and chills, found to have MSSA bacteremia and septic shock c/b AF with RVR, with FER revealing a vegetation on the aortic valve prompting tx to [facility] on 06/06/2023. 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 FER 06/05/23 showed AV freely mobile mass c/w vegetation measuring 1.1cm x 0.7cm. Blood cultures NTD since 06/08/22, last positive on 06/06/22 - CTS Dr. Sabillon following, recommend completing AB course and follow-up echo in 4-6 weeks with outpatient CTS follow-up - ABs per ID; awaiting clearance from ID for PICC line placement - Recommend daily 12-lead ECGs and continuous telemetry to monitor for high degree AV block - Please set him up with his outpatient pediatric anesthesiologist in [place] to be seen within 1 month of discharge History of AVE s/p mechanical AVR: history of AVE 2/2 strep s/p AVR and reconstruction of RVOT using 29mm pulmonary homograft c/b graft dilation and AI s/p modified Bentall procedure with AVR and aortic root replacement using 25mm [place] and hemashield composite graft in 2001. - Patient will need systemic AC with warfarin and heparin gtt bridge until goal INR 2.5-3.5 given mechanical AV with risk factors (AF). Would monitor closely for any evidence of septic emboli to brain given c/f hemorrhagic conversion while on AC. Acute HFmrEF: TTE 06/02/23 showed LVEF 40-45% and FER 06/05/23 showed LVEF 50% in setting of sepsis and AVE and mild to moderate MR. - Net positive 294 ml in the last 24 hours/net negative 5.37 Liters this admission. Creatinine stable. Warm and wet on exam today. No weight filed today. - Recommend giving lasix 40mg IV today and would concentrate IVAB volume as able - GDMT: Transition from metoprolol 50mg BID to Toprol XL 100 mg daily starting tomorrow as patient already received AM dose of metoprolol. Would add losartan 12.5mg daily if BP allows after monitoring response with Toprol XL. - Strict I/Os, daily weight, optimize lytes to keep K>4 and Mg>2 Paroxysmal atrial fibrillation: known history since 2001. RVR noted at OSH in the setting of MSSA bacteremia, septic shock. Initiated on amio gtt and transitioned to PO amio. - Currently in rate-controlled AF - Patient confirms he does not take amiodarone at home. Discontinue po amiodarone 200 mg daily and increase BB if needed per BP tolerance for rate control. - [id number] is 3, continue systemic AC with warfarin and heparin gtt bridge. Goal INR 2.5-3.5 d/t mechanical AV. - Ongoing supportive care of underlying illness, volume status - Maintain electrolytes for K>4, Mg>2 - Continue telemetry Other hospital problems: Basal cell carcinoma: found on right neck; diagnosed by derm this admission Supratherapeutic INR: resolved; on heparin gtt Diverticulitis s/p partial colectomy: ?Crohn's disease on colonoscopy, on prednisone and PPI. Follows with outpatient GI Urethral stricture: s/p dilation by urology at OSH, on flomax Anxiety/depression: on ativan and duloxetine History of GIB: 04/2023 Chronic ROGER: holding home iron d/t acute infection INTERVAL HISTORY/REVIEW OF SYSTEMS Over the last day, he had no acute events. Reports he is frustrated this morning after conversation with ID; may require IV antibiotics for extended period of time. Continues to ambulate in the hallway without negative symptoms. He is seen sitting on the edge of the bed in no acute distress. Review of Systems Constitutional: Negative for activity change, chills, fatigue and fever. Respiratory: Negative for chest tightness, shortness of breath and wheezing. Cardiovascular: Positive for leg swelling. Negative for chest pain and palpitations. Improving BLE edema Gastrointestinal: Negative for constipation, diarrhea, nausea and vomiting. Neurological: Negative for syncope and light-headedness. PHYSICAL EXAM BP 134/65 (BP Location: Left arm, BP Position: Lying) Pulse 69 Temp 98.1 F (36.7 C) (Oral) Resp 18 Ht 1.829 m (6') Comment: estimated Wt 97.5 kg (214 lb 14.4 oz) SpO2 97% BMI 29.15 kg/m Smoking Status Never Constitutional: Awake and in no distress. Chest: Respiratory effort is unlabored. Lungs are clear without rales, rhonchi or wheezes. Cardiovascular: No JVD appreciated. Irregularly irregular rate and rhythm; S1 normal, S2 normal. Exam reveals no gallop, no friction rub. No murmur heard. Valve click present. Abdomen: Soft, non-tender, non-distended. +BS. Extremities: 2+ BLE pitting edema. No stasis dermatitis. Radial, dorsalis pedis and posterior tibial pulses are 2+ bilaterally. Neurological: Alert and oriented to person, place and time. Skin: Warm, dry. No cyanosis. Nails show no clubbing. CARDIOVASCULAR IMAGING/DATA Cardiac Catheterization 2001 ([facility]): - Left Coronary Artery: no angiographically definable disease - Right Coronary Artery: no angiographically definable disease {dominant) TTE 02/03/1997: - LVEF 65% - Large AV vegetations; severe AI - No definite MV vegetation seen (mild focal prolapse of a scallop of the valve without significant leak.) 24 hour telemetry (personally reviewed): AF 60-70's. ADDITIONAL DATA REVIEWED Intake/Output Summary (Last 24 hours) at 06/13/2023 0723 Last data filed at 06/13/2023 0440 Gross per 24 hour Intake 2144.34 ml Output 1850 ml Net 294.34 ml Temp: [97.9 F (36.6 C)-98.7 F (37.1 C)] 98.1 F (36.7 C) Pulse (Heart Rate): [68-74] 69 Resp Rate: [18] 18 BP: (112-140)/(53-81) 134/65 O2 Sat (%): [92 %-100 %] 97 % Oxygen Therapy O2 Sat (%): 97 % O2 Device: room air Body mass index is 29.15 kg/m . LABS Bun/Creat/Cl/CO2/Glucose: 21/1.06/104/26/95 (06/13 326) Na/K+/Phos/Mg/Ca: 138/4.2/--/2.0/-- (06/13 326) No results found for: BNP Lab Results Component Value Date CHOLESTEROL 183 08/28/2001 CHOLESTEROL 183 08/28/2001 TRIG 121 08/28/2001 HDL 35 (L) 08/28/2001 CURRENT MEDICATIONS: AMIOdarone 200 mg Oral Daily ceFAZolin (ANCEF) 3 g in Sodium chloride 0.9%, with overfill 290 mL IV infusion 3 g Intravenous Q12HNS DULoxetine 60 mg Oral Daily gentamicin 60 mg Intravenous Q12HNS Metoprolol 50 mg Oral BID Pantoprazole 40 mg Oral Daily predniSONE 20 mg Oral Daily Tamsulosin HCl 0.4 mg Oral Daily [Held by provider] Warfarin 6.5 mg Oral Daily early evening heparin 15 Units/kg/hr (06/12/232106) [id number] Score for Atrial Fibrillation Stroke Risk Age in Years: 75+ Sex: Male CHF History: Yes Hypertension History: No Stroke/TIA/Thromboembolism History: No Vascular Disease History: No Diabetes History: No [id number] Score: 3 Complexity. Thank you for this consult. Please call with questions. We will continue to follow along. CHEO Adamson Cardiology Consult Service Phone: [phone] [facility] Medicine Progress Note Patient: Markus Nava, : 1945, Impression / Plan Markus Nava is a 78 y.o. 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 MSSA bacteremia and endocarditis of prosthetic AV valve Initially with septic shock at OSH, now resolved. Found to have MSSA bacteremia. Prosthetic AV vegetation confirmed on OSH FER. - Continue cefazolin 3g q12h over 12 hours for 6 weeks and gentamicin 80mg q8h for a 2 week course. Per OSH records, rifampin was also considered but concerns for drug interaction with amiodarone and not yet started. ID said no rifampin needed at this time as well. - Consult ID gentamicin and cefazolin Blood cultures negative from 06/08, last positive 06/06, culture negative to date 06/11 -Dc Internal jugular line and monitor culture results per ID recs, then place picc and get opat. Per 06/11 recs - Consult cardiology and cardiothoracic surgery - Follow up OSH Bcx to ensure clearance of bacteremia Supratherapeutic INR - resolved Mechanical aortic valve present INR 3.8 on admission to OSH, 3.4 today per OSH records. INR 2.5 on admission here. Restart warfarin after PICC Is placed and right internal jugular catheter is removed. Continue with heparin gtt Atrial fibrillation CHADSVASC 3 (age, HTN). RVR at OSH, started on amiodarone. - Continue amiodarone 200 mg daily - Continue metoprolol 50mg BID - Telemetry - Cardiology consult as above JEFF - hold diuresis History of GI bleed Diverticulitis s/p partial colectomy Suspected Crohn's disease History of diverticulitis s/p partial colectomy, but recently with GI bleed in Apr 2023. Colonoscopy with concern for Crohn's disease, discharged on steroid taper. - Continue pantoprazole 40 mg daily - Continue prednisone 20mg daily - Outpatient follow up with GI Urethral stricture s/p dilation Urology consulted and dilation performed at OSH, brown removed prior to transfer. - Continue flomax, monitor for signs of retention Anxiety - Continue ativan 0.5 mg po BID prn and duloxetine 60mg daily Leukocytosis - Likely due to known infection as above, continue to monitor Basal Cell Carcinoma - wide excision - Mohs procedure Appreciate derm- will be done outpatient DADA Likely from continuous Abx infusions. -5L for the last 24 hours with bid lasix - lasix dose again on 06/12 if cr ok- cr trended upward Complexity. Any conditions listed below are present on admission unless otherwise specified. .Chronic Iron Deficiency Anemia - hold home iron supplementation in setting of acute infection Complexity. Any conditions listed below are present on admission unless otherwise specified. . DVT prophylaxis with heparin gtt, add warfarin once picc placed. Anticipated Disposition: home Code status is Full Code Interval History / Subjective No events over night, afebrile Objective Temp: [97.9 F (36.6 C)-98.3 F (36.8 C)] 98.3 F (36.8 C) Pulse (Heart Rate): [67-73] 70 Resp Rate: [16-18] 18 BP: (104-149)/(53-72) 112/53 O2 Sat (%): [92 %-99 %] 92 % Weight: [97.5 kg (214 lb 14.4 oz)] 97.5 kg (214 lb 14.4 oz) Physical Exam Gen: A, A, NAD Neck : pearly lesion on the right neck , right neck line in place ENT: MMM Resp: CTA bilat, normal effort Cardio: RRR, normal S1, S2, No DADA GI: S/NT/ND, NABS Psych: Ox3, appropriate affect and cognition Data Review Na/K+/Phos/Mg/Ca: 137/4.4/--/2.0/-- (06/12 431) Bun/Creat/Cl/CO2/Glucose: 20/1.12/101/27/96 (06/12 431) Ptt/Pt/Inr: 63.5/17.7/1.5 (06/12 431-06/12 1240) Cxr pulm edema Images from the original note were not included. CARDIOLOGY CONSULT PROGRESS NOTE Cardiology consult 06/06/2023 for 78y M with hx of aortic valve replacement now with MSSA bacteremia and AV endocarditis HPI I saw Mr. Markus Nava in follow-up on 06/12/2023. He is a 78 y.o. male with a history of streptococcal endocarditis of AV s/p AVR (1996) c/b graft dilation and aortic insufficiency s/p Bentall procedure (2001), AF, diverticulitis s/p partial colectomy with c/f Crohn's, anxiety and depression who initially presented to an OSH 06/02/23 with fevers and chills, found to have MSSA bacteremia and septic shock c/b AF with RVR, with FER revealing a vegetation on the aortic valve prompting tx to [facility] on 06/06/2023. 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 FER 06/05/23 showed AV freely mobile mass c/w vegetation measuring 1.1cm x 0.7cm. Blood cultures NTD since 06/08/22, last positive on 06/06/22 - CTS Dr. Sabillon following, recommend completing AB course and follow-up echo in 4-6 weeks with outpatient CTS follow-up - ABs per ID; awaiting clearance from ID for PICC line placement - Recommend daily 12-lead ECGs and continuous telemetry to monitor for high degree AV block - Please set him up with his outpatient pediatric anesthesiologist in [place] to be seen within 1 month of discharge History of AVE s/p mechanical AVR: history of AVE 2/2 strep s/p AVR and reconstruction of RVOT using 29mm pulmonary homograft c/b graft dilation and AI s/p modified Bentall procedure with AVR and aortic root replacement using 25mm [employer] [place] and hemashield composite graft in 2001. - Patient will need systemic AC with warfarin and heparin gtt bridge until goal INR 2.5-3.5 given mechanical AV with risk factors (AF). Would monitor closely for any evidence of septic emboli to brain given c/f hemorrhagic conversion while on AC. Acute HFmrEF: TTE 06/02/23 showed LVEF 40-45% and FER 06/05/23 showed LVEF 50% in setting of sepsis and AVE and mild to moderate MR. - Net negative 619 ml in the last 24 hours/net negative 5.6 Liters this admission. Creatinine stable. Warm and wet on exam today. No weight filed today. - Recommend giving lasix 40mg IV today and would concentrate IVAB volume as able - GDMT: Transition from metoprolol 50mg BID to Toprol XL 100 mg daily starting tomorrow as patient already received AM dose of metoprolol. Would add losartan 12.5mg daily if BP allows after monitoring response with Toprol XL. - Strict I/Os, daily weight, optimize lytes to keep K>4 and Mg>2 Paroxysmal atrial fibrillation: known history since 2001. RVR noted at OSH in the setting of MSSA bacteremia, septic shock. Initiated on amio gtt and transitioned to PO amio. - Currently in rate-controlled AF - Patient confirms he does not take amiodarone at home. Discontinue po amiodarone 200 mg daily and increase BB if needed per BP tolerance for rate control. - [id number] is 3, continue systemic AC with warfarin and heparin gtt bridge. Goal INR 2.5-3.5 d/t mechanical AV. - Ongoing supportive care of underlying illness, volume status - Maintain electrolytes for K>4, Mg>2 - Continue telemetry Other hospital problems: Basal cell carcinoma: found on right neck; diagnosed by derm this admission Supratherapeutic INR: resolved; on heparin gtt Diverticulitis s/p partial colectomy: ?Crohn's disease on colonoscopy, on prednisone and PPI. Follows with outpatient GI Urethral stricture: s/p dilation by urology at OSH, on flomax Anxiety/depression: on ativan and duloxetine History of GIB: 04/2023 Chronic ROGER: holding home iron d/t acute infection INTERVAL HISTORY/REVIEW OF SYSTEMS Over the last day, he had no acute events. Reports walking in halls with no negative symptoms. He is seen lying in bed in no acute distress. Review of Systems Constitutional: Negative for chills and fever. Respiratory: Negative for chest tightness, shortness of breath and wheezing. Cardiovascular: Positive for leg swelling. Negative for chest pain and palpitations. Gastrointestinal: Negative for constipation, diarrhea, nausea and vomiting. Neurological: Negative for dizziness, syncope, weakness and light-headedness. PHYSICAL EXAM BP 149/72 (BP Location: Left arm, BP Position: Sitting) Pulse 73 Temp 98.3 F (36.8 C) (Oral) Resp 18 Ht 1.829 m (6') Comment: estimated Wt 97.5 kg (214 lb 14.4 oz) SpO2 99% BMI 29.15 kg/m Smoking Status Never Constitutional: Awake and in no distress. Chest: Respiratory effort is unlabored. Lungs are clear without rales, rhonchi or wheezes. Cardiovascular: No JVD appreciated. Irregularly irregular rate and rhythm; S1 normal, S2 normal. Exam reveals no gallop, no friction rub. No murmur heard. Valve click present. No carotid bruits. Abdomen: Soft, non-tender, non-distended. +BS. Extremities: 2-3+ pitting BLE edema. No stasis dermatitis. Radial, dorsalis pedis and posterior tibial pulses are 2+ bilaterally. Neurological: Alert and oriented to person, place and time. Skin: Warm, dry. No cyanosis. Nails show no clubbing. CARDIOVASCULAR IMAGING/DATA Cardiac Catheterization 2002 ([facility]): - Left Coronary Artery: no angiographically definable disease - Right Coronary Artery: no angiographically definable disease {dominant) TTE 02/03/1997: - LVEF 65% - Large AV vegetations; severe AI - No definite MV vegetation seen (mild focal prolapse of a scallop of the valve without significant leak.) 24 hour telemetry (personally reviewed): AF 64-80. ADDITIONAL DATA REVIEWED Intake/Output Summary (Last 24 hours) at 06/12/2023 0741 Last data filed at 06/12/2023 0633 Gross per 24 hour Intake 1180.18 ml Output 1800 ml Net -619.82 ml Temp: [97.9 F (36.6 C)-98.5 F (36.9 C)] 98.3 F (36.8 C) Pulse (Heart Rate): [63-74] 73 Resp Rate: [15-18] 18 BP: (104-149)/(56-72) 149/72 O2 Sat (%): [77 %-100 %] 99 % Weight: [97.5 kg (214 lb 14.4 oz)-97.8 kg (215 lb 11.2 oz)] 97.5 kg (214 lb 14.4 oz) Oxygen Therapy O2 Sat (%): 99 % O2 Device: room air Body mass index is 29.15 kg/m . LABS Bun/Creat/Cl/CO2/Glucose: 20/1.12/101/27/96 (06/12 431) Na/K+/Phos/Mg/Ca: 137/4.4/--/2.0/-- (01/09 0432) WBC/Hgb/Hct/Plts: --/--/--/260 (06/11 1415) No results found for: BNP Lab Results Component Value Date CHOLESTEROL 183 08/28/2001 CHOLESTEROL 183 08/28/2001 TRIG 121 08/28/2001 HDL 35 (L) 08/28/2001 CURRENT MEDICATIONS: AMIOdarone 200 mg Oral Daily ceFAZolin (ANCEF) 3 g in Sodium chloride 0.9%, with overfill 290 mL IV infusion 3 g Intravenous Q12HNS DULoxetine 60 mg Oral Daily gentamicin 60 mg Intravenous Q12HNS Metoprolol 50 mg Oral BID Pantoprazole 40 mg Oral Daily predniSONE 20 mg Oral Daily Tamsulosin HCl 0.4 mg Oral Daily [Held by provider] Warfarin 6.5 mg Oral Daily early evening heparin 12 Units/kg/hr (06/12/23 0633) [id number] Score for Atrial Fibrillation Stroke Risk Age in Years: 75+ Sex: Male CHF History: Yes Hypertension History: No Stroke/TIA/Thromboembolism History: No Vascular Disease History: No Diabetes History: No [id number] Score: 3 Thank you for this consult. Please call with questions. We will continue to follow along. [facility] Cardiology Consult Service Phone: [phone] Department of Pharmacy Antimicrobial Stewardship Documentation Note Patient: Markus Nava Room/Bed: 70/A Staphylococcus aureus Bacteremia Monitoring The patient's microbiology lab has resulted as The patient's microbiology lab has resulted as MSSA bacteremia (S. aureus DNA detected, mecA/C and MREJ genes NOT detected by BCID2 panel) on 06/10 at 1208. Patient is currently on Cefazolin IV as empiric therapy. A member of the Pharmacy team has reviewed the patient's medical record and the following recommendations are based on [facility]'s Diagnosis and Management of Staphylococcus aureus Bacteremia in Adults practice guideline: Obtain Infectious Disease consult. Order repeat blood cultures daily until negative for 72 hours. Obtain echocardiogram. *FER is recommended in patients with a prosthetic valve or congential heart disease. Antibiotic treatment for MSSA bacteremia: Continue Cefazolin IV with Gentamicin synergy x 2 weeks therapy. Please feel free to contact me with any further questions. Name: Haley Mahmood RPH Phone: [phone] Date/Time: 06/12/2023 7:24 AM Discharge Plan Expected Discharge Date: 06/13/2023 Referred Level of Care: Home Health/Home Infusion Barriers: Cultures, Final ID recs/Antibiotic plan, PICC Current Referrals and Status [facility] assisting with Home Health/Home Infusion referrals. CM will continue following for discharge planning. Radha KEN Clinical Slubber Runner [facility] Medicine Progress Note Patient: Markus Nava, : 1945, Impression / Plan Markus Nava is a 78 y.o. 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 MSSA bacteremia and endocarditis of prosthetic AV valve Initially with septic shock at OSH, now resolved. Found to have MSSA bacteremia. Prosthetic AV vegetation confirmed on OSH FER. - Continue cefazolin 3g q12h over 12 hours for 6 weeks and gentamicin 80mg q8h for a 2 week course. Per OSH records, rifampin was also considered but concerns for drug interaction with amiodarone and not yet started. ID said no rifampin needed at this time as well. - Consult ID gentamicin and cefazolin Blood cultures negative from 06/08, last positive 06/06 -Dc Internal jugular line and monitor culture results per ID recs, then place picc and get opat. Per 06/11 recs - Consult cardiology and cardiothoracic surgery - Follow up OSH Bcx to ensure clearance of bacteremia Supratherapeutic INR - resolved Mechanical aortic valve present INR 3.8 on admission to OSH, 3.4 today per OSH records. INR 2.5 on admission here. Restart warfarin after PICC Is placed and right internal jugular catheter is removed. Continue with heparin gtt Atrial fibrillation CHADSVASC 3 (age, HTN). RVR at OSH, started on amiodarone. - Continue amiodarone 200 mg daily - Continue metoprolol 50mg BID - Telemetry - Cardiology consult as above History of GI bleed Diverticulitis s/p partial colectomy Suspected Crohn's disease History of diverticulitis s/p partial colectomy, but recently with GI bleed in Apr 2023. Colonoscopy with concern for Crohn's disease, discharged on steroid taper. - Continue pantoprazole 40 mg daily - Continue prednisone 20mg daily - Outpatient follow up with GI Urethral stricture s/p dilation Urology consulted and dilation performed at OSH, brown removed prior to transfer. - Continue flomax, monitor for signs of retention Anxiety - Continue ativan 0.5 mg po BID prn and duloxetine 60mg daily Leukocytosis - Likely due to known infection as above, continue to monitor Basal Cell Carcinoma - wide excision - Mohs procedure Appreciate derm- will be done outpatient DADA Likely from continuous Abx infusions. -5L for the last 24 hours with bid lasix - lasix dose again on 06/12 if cr ok- cr trended upward Complexity. Any conditions listed below are present on admission unless otherwise specified. .Chronic Iron Deficiency Anemia - hold home iron supplementation in setting of acute infection Complexity. Any conditions listed below are present on admission unless otherwise specified. . DVT prophylaxis with heparin gtt, add warfarin once picc placed. Anticipated Disposition: home Code status is Full Code Interval History / Subjective Feels ok today No events over night Bp ok, Peed 5L Objective Temp: [98 F (36.7 C)-98.8 F (37.1 C)] (P) 98.5 F (36.9 C) Pulse (Heart Rate): [64-74] (P) 74 Resp Rate: [16-18] (P) 16 BP: (116-147)/(56-71) (P) 145/56 O2 Sat (%): [77 %-100 %] (P) 94 % Physical Exam Gen: A, A, NAD Neck : pearly lesion on the right neck , right neck line in place ENT: MMM Resp: CTA bilat, normal effort Cardio: RRR, normal S1, S2, No DADA GI: S/NT/ND, NABS Psych: Ox3, appropriate affect and cognition Data Review Na/K+/Phos/Mg/Ca: 137/4.2, 4.4/--/2.0/-- (06/11 334) Bun/Creat/Cl/CO2/Glucose: 21/1.10/100/27/81 (06/11 334) Ptt/Pt/Inr: 60.8/18.3/1.5 (06/11 334-06/11 626) Cxr pulm edema PACC Progress Expected Discharge Date: 06/13/23 Referred Level of Care: SN Barriers: No accepting agencies Current Referrals and Status: No accepting agencies Plan: Timer extended, message sent to agencies who had not responded as of yet. NATAN Mills RN Images from the original note were not included. CARDIOLOGY CONSULT PROGRESS NOTE Cardiology consult 06/06/2023 for 78y M with hx of aortic valve replacement now with MSSA bacteremia and AV endocarditis HPI I saw Mr. Markus Nava in follow-up on 06/11/2023. He is a 78 y.o. male with a history of streptococcal endocarditis of AV s/p AVR (1996) c/b graft dilation and aortic insufficiency s/p Bentall procedure (2001), AF, diverticulitis s/p partial colectomy with c/f Crohn's, anxiety and depression who initially presented to an OSH 06/02/23 with fevers and chills, found to have MSSA bacteremia and septic shock c/b AF with RVR, with FER revealing a vegetation on the aortic valve prompting tx to [facility] on 06/06/2023. 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 FER 06/05/23 showed AV freely mobile mass c/w vegetation measuring 1.1cm x 0.7cm. Blood cultures NTD since 06/08/22, last positive on 06/06/22 - CTS Dr. Sabillon following, recommend completing AB course and follow-up echo in 4-6 weeks with outpatient CTS follow-up - ABs per ID; PICC line placed today - Recommend daily ECGs and continuous telemetry to monitor for high degree AV block - Please set him up with his outpatient pediatric anesthesiologist in [place] to be seen within 1 month of discharge History of AVE s/p mechanical AVR: history of AVE 2/2 strep s/p AVR and reconstruction of RVOT using 29mm pulmonary homograft c/b graft dilation and AI s/p modified Bentall procedure with AVR and aortic root replacement using 25mm [place] and hemashield composite graft in 2001. - Continue systemic AC with warfarin and heparin gtt bridge. Goal INR 2.5-3.5 given mechanical AV with risk factors (AF). Would monitor closely for any evidence of septic emboli to brain given c/f hemorrhagic conversion while on AC. Acute HFmrEF: TTE 06/02/23 showed LVEF 40-45% and FER 06/05/23 showed LVEF 50% in setting of sepsis and AVE and mild to moderate MR. - Net negative 5 Liters in the last 24 hours/net negative 5 Liters this admission. Creatinine stable. Warm and wet on exam today. No weight filed today. - Recommend decreasing to lasix 40mg IV daily and would concentrate IVAB volume as able - GDMT: Transition from metoprolol 50mg BID to Toprol XL 100 mg daily starting tomorrow. Would add losartan 12.5mg daily when BP allows - Strict I/Os, daily weight, optimize lytes to keep K>4 and Mg>2 Paroxysmal atrial fibrillation: known history since 2001. RVR noted at OSH in the setting of MSSA bacteremia, septic shock. Initiated on amio gtt and transitioned to PO amio. - Currently in rate-controlled AF. - Continue rate control with BB and amiodarone - [id number] is 3, continue systemic AC with warfarin and heparin gtt bridge. Goal INR 2.5-3.5 - Ongoing supportive care of underlying illness, volume status - Maintain electrolytes for K>4, Mg>2 Other hospital problems: Basal cell carcinoma: found on right neck; diagnosed by derm this admission Supratherapeutic INR: resolved; on heparin gtt Diverticulitis s/p partial colectomy: ?Crohn's disease on colonoscopy, on prednisone and PPI. Follows with outpatient GI Urethral stricture: s/p dilation by urology at OSH, on flomax Anxiety/depression: on ativan and duloxetine History of GIB: 04/2023 Chronic ROGER: holding home iron d/t acute infection INTERVAL HISTORY/REVIEW OF SYSTEMS Over the last day, he had no acute events. Reports he is awaiting a PICC line for continued antibiotic therapy. States he has been able to ambulate in the halls without symptoms. He is seen sitting on the edge of the bed in no acute distress. Review of Systems Constitutional: Negative for activity change, chills, fatigue and fever. Respiratory: Negative for chest tightness and shortness of breath. Cardiovascular: Positive for leg swelling. Negative for chest pain and palpitations. Gastrointestinal: Negative for constipation, diarrhea, nausea and vomiting. Musculoskeletal: Positive for arthralgias. Neurological: Negative for dizziness, syncope and light-headedness. Psychiatric/Behavioral: Negative for sleep disturbance. PHYSICAL EXAM BP 138/65 (BP Location: Left arm, BP Position: Sitting) Pulse 68 Temp 98.4 F (36.9 C) (Oral) Resp 16 Ht 1.829 m (6') Comment: estimated Wt 98.5 kg (217 lb 3.2 oz) SpO2 100% BMI 29.46 kg/m Smoking Status Never Constitutional: Awake and in no distress. Chest: Respiratory effort is unlabored. Lungs are clear without rales, rhonchi or wheezes. Cardiovascular: No JVD appreciated. Irregularly irregular rate and rhythm; S1 normal, S2 normal. Exam reveals no gallop, no friction rub. Valve click heard. Abdomen: Soft, non-tender, non-distended. +BS. Extremities: 2-3+ BLE pitting edema below knee. No stasis dermatitis. Radial pulses 1+ bilaterally, dorsalis pedis and posterior tibial pulses are 1+ bilaterally. Neurological: Alert and oriented to person, place and time. Skin: Warm, dry. No cyanosis. Nails show no clubbing. CARDIOVASCULAR IMAGING/DATA Cardiac Catheterization 2001 ([facility]): - Left Coronary Artery: no angiographically definable disease - Right Coronary Artery: no angiographically definable disease {dominant) TTE 02/03/1997: - LVEF 65% - Large AV vegetations; severe AI - No definite MV vegetation seen (mild focal prolapse of a scallop of the valve without significant leak.) 24 hour telemetry (personally reviewed): AF 63-73. ADDITIONAL DATA REVIEWED Intake/Output Summary (Last 24 hours) at 06/11/2023 0815 Last data filed at 06/11/2023 0629 Gross per 24 hour Intake 2246.2 ml Output 6975 ml Net -4728.8 ml Temp: [98 F (36.7 C)-98.8 F (37.1 C)] 98.4 F (36.9 C) Pulse (Heart Rate): [64-79] 68 Resp Rate: [16-18] 16 BP: (116-147)/(56-71) 138/65 O2 Sat (%): [95 %-100 %] 100 % Oxygen Therapy O2 Sat (%): 100 % O2 Device: room air Body mass index is 29.46 kg/m . LABS Na/K+/Phos/Mg/Ca: --/4.2/--/2.0/-- (06/11 334) No results found for: BNP Lab Results Component Value Date CHOLESTEROL 183 08/28/2001 CHOLESTEROL 183 08/28/2001 TRIG 121 08/28/2001 HDL 35 (L) 08/28/2001 CURRENT MEDICATIONS: AMIOdarone 200 mg Oral Daily ceFAZolin (ANCEF) 3 g in Sodium chloride 0.9%, with overfill 290 mL IV infusion 3 g Intravenous Q12HNS DULoxetine 60 mg Oral Daily furosemide 40 mg Intravenous Q12H gentamicin 60 mg Intravenous Q12HNS Metoprolol 50 mg Oral BID Pantoprazole 40 mg Oral Daily predniSONE 20 mg Oral Daily Tamsulosin HCl 0.4 mg Oral Daily [Held by provider] Warfarin 6.5 mg Oral Daily early evening heparin 11 Units/kg/hr (06/11/23 0800) [id number] Score for Atrial Fibrillation Stroke Risk Age in Years: 75+ Sex: Male CHF History: Yes Hypertension History: No Stroke/TIA/Thromboembolism History: No Vascular Disease History: No Diabetes History: No [id number] Score: 3 Thank you for this consult. Please call with questions. We will continue to follow along. Delfina Saldaña APRN-BRUSH POLISHER Cardiology Consult Service Phone: [phone] Images from the original note were not included. INFECTIOUS DISEASE FOLLOW-UP NOTE IDENTIFYING INFORMATION PATIENT: Markus Nava REFERRING PROVIDER: Heike Milan MD ADMIT DATE: 06/06/2023 TODAY'S DATE: 06/11/2023 REASON FOR CONSULT 78y M with hx of aortic valve replacement now with MSSA bacteremia and AV endocarditis ASSESSMENT Markus Nava is a 78 y.o. male with previous Streptococcal [place] AV endocarditis requiring Ross procedure (1996) complicated by Graft dilation and AI requiring Bentall procedure (2001) on Warfarin admitted with MSSA endocarditis of mechanical valve. MSSA bacteremia with prosthetic/mechanical AV endocarditis FER (06/05/2023) at [facility] with 1.1cm x 0.7cm mobile vegetation on subaortic valvular lesion. Blood cultures initially positive on 06/02/2023. Started on intermittent Cefazolin with Gentamicin prior to transfer to [facility]. History of previous Streptococcal [place] AV endocarditis requiring Ross procedure (1996) complicated by Graft dilation and AI requiring Bentall procedure (2001) Warfarin held and transitioned to Heparin gtt for anticoagulation. Leukocytosis with neutrophilic predominance Normocytic anemia Abnormal LFTs High risk medication use: Aminoglycoside requiring close monitoring of renal function and if long-term use, monitoring for ototoxicity. Estimated Creatinine Clearance: 81 mL/min (by C-G formula based on SCr of 0.91 mg/dL). RECOMMENDATIONS Diagnostics Recommend CVC removal as placed while bacteremic with line holiday, as able. Following line removal, repeat blood cultures today, 06/11/2023 to ensure clearance given high burden of disease, as one day of clearance is not sufficient. Monitor closely for signs or symptoms of embolic disease. Therapeutics Cefazolin 3g every 12 hours as continuous infusion. Gentamicin 1mg/kg every 8 hours for synergy. Appreciate pharmacy assistance with dosing Limited use of Rifampin given anticipated initiation of Warfarin again, which would preclude reaching therapeutic INR. ID team 1 will continue to follow. Please call aforementioned team with questions. Discussed with attending, Dr. Soliz. Asha Bundy MD Infectious Disease Fellow, PGY-5 SUBJECTIVE/INTERVAL HISTORY Afebrile, hemodynamically stable, and on room air. States he has still been able to ambulate around the floor. No new joint or back pain. Discussed severity of infection and possibility that even after completion of antibiotics, possibly with suppression, his infection could recur. Cefazolin: 06/04/2023-Current Gentamicin: 06/06/2023-Current Piperacillin-Tazobactam: 06/02/2023-06/04/2023 Vancomycin: 06/02/2023-06/04/2023 Review of systems otherwise negative, unless noted above. INPATIENT MEDICATIONS AMIOdarone 200 mg Oral Daily ceFAZolin (ANCEF) 3 g in Sodium chloride 0.9%, with overfill 290 mL IV infusion 3 g Intravenous Q12HNS DULoxetine 60 mg Oral Daily furosemide 40 mg Intravenous Q12H gentamicin 60 mg Intravenous Q12HNS Metoprolol 50 mg Oral BID Pantoprazole 40 mg Oral Daily predniSONE 20 mg Oral Daily Tamsulosin HCl 0.4 mg Oral Daily [Held by provider] Warfarin 6.5 mg Oral Daily early evening Allergies Allergies Allergen Reactions Alprazolam Other Reaction(s): Other Altered mental status-tolerates lorazepam PHYSICAL EXAM Temp: [97.7 F (36.5 C)-98.8 F (37.1 C)] 98.4 F (36.9 C) Pulse (Heart Rate): [64-79] 69 Resp Rate: [16-18] 16 BP: (116-147)/(56-71) 147/71 O2 Sat (%): [95 %-100 %] 97 % Physical Exam Constitutional: General: He is not in acute distress. HENT: Head: Atraumatic. Neck: Comments: R internal jugular CVC remains in place. Cardiovascular: Rate and Rhythm: Normal rate. Heart sounds: Normal heart sounds. Pulmonary: Effort: Pulmonary effort is normal. Abdominal: General: There is no distension. Palpations: Abdomen is soft. Tenderness: There is no abdominal tenderness. Musculoskeletal: General: No swelling or tenderness. Skin: General: Skin is warm. Neurological: General: No focal deficit present. Mental Status: He is alert. Psychiatric: Mood and Affect: Mood normal. Behavior: Behavior normal. LABS AND IMAGING Lab Results Component Value Date WBC 15.06 (H) 06/08/2023 HGB 10.2 (L) 06/08/2023 HCT 32.6 (L) 06/08/2023 PLATELET 287 06/09/2023 MCV 90.6 06/08/2023 Lab Results Component Value Date SODIUM 138 06/10/2023 POTASSIUM 4.2 06/11/2023 CHLORIDE 104 06/10/2023 CO2 26 06/10/2023 BUN 21 06/10/2023 CREATSERUM 0.91 06/10/2023 Microbiologic Data (personally reviewed): Blood (06/02/2023, [facility]): MSSA Blood (06/06/2023): MSSA (Line & Peripheral) Blood (06/08/2023): No growth to date Blood (06/11/2023): No growth to date Urine (06/02/2023): MSSA Imaging (personally reviewed): TTE (06/02/2023): Poor visualization of prosthetic AV. FER (06/05/2023): 1.1x0.7cm vegetation on prosthetic AV. Chest XR (06/06/2023): Pulmonary edema. ID Staff: I saw and examined the patient on 06/11/[address] Bundy. I agree with and/or have edited the note to reflect my thoughts including the history/ROS, physical exam, and medical decisions. I have discussed the findings and therapeutic plan with the fellow and we collaborated on medical decision making for this patient. 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 Has been receiving cefazolin plus gentamicin (rifampin was deferred given need for warfarin and concern for drug-drug interaction impeding the treatment of therapeutic levels). Has been evaluated by Cardiology and cardiac surgery -- seems no imminent plans for surgical intervention (not clear patient would be amenable anyway). Microbiology data personally reviewed/interpreted -- blood cultures with growth of Staphylococcus aureus from 06/02/2023 -- 06/06/2023; blood cultures from 06/08/2023 currently without growth. Imaging notable for FER findings as described above. 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 Appreciate ongoing discussion between Cardiology, cardiac surgery, and the patient regarding management options as not clear antimicrobial therapy alone will be sufficient to cure this process. Needs current line removed with line holiday. Currently with a single date of blood cultures without growth -- a skip phenomenon does occur, recommend obtaining additional blood cultures today to ensure durable clearance. If surgical intervention on the valve is not an option or not pursued, will ultimately need to pursue a prolonged course of IV antimicrobials and likely subsequent group home oral suppression. For now, continue IV cefazolin by continuous infusion -- anticipate 6-8 week course from durable blood culture clearance (current day 1 = 06/08/23) with likely subsequent chronic oral suppression. Continue gentamicin for synergy (important to monitor renal function and drug levels; appreciate pharmacy assistance and monitoring while on this regimen) -- plan for 2-week course. Kelvin Soliz MD, PhD Pump Servicer Supervisorprincipal strategist Division of Infectious Diseases [facility] Medicine Progress Note Patient: Markus Nava, : 1945, Impression / Plan Markus Nava is a 78 y.o. 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 MSSA bacteremia and endocarditis of prosthetic AV valve Initially with septic shock at OSH, now resolved. Found to have MSSA bacteremia. Prosthetic AV vegetation confirmed on OSH FER. - Continue cefazolin 3g q12h over 12 hours for 6 weeks and gentamicin 80mg q8h for a 2 week course. Per OSH records, rifampin was also considered but concerns for drug interaction with amiodarone and not yet started. ID said no rifampin needed at this time as well. - Consult ID gentamicin and cefazolin, opat pending. PICC needs placed. Patient hesitant about managing abx at home as he is not feeling like he can withstand administering himself abx he also does not what to go to a snf. Blood cultures drawn again today, conitnue to be positive from 06/06. - Consult cardiology and cardiothoracic surgery - Follow up OSH Bcx to ensure clearance of bacteremia Supratherapeutic INR - resolved Mechanical aortic valve present INR 3.8 on admission to OSH, 3.4 today per OSH records. INR 2.5 on admission here. Restart warfarin after PICC Is placed and right internal jugular catheter is removed. Atrial fibrillation CHADSVASC 3 (age, HTN). RVR at OSH, started on amiodarone. - Continue amiodarone 200 mg daily - Continue metoprolol 50mg BID - Telemetry - Cardiology consult as above History of GI bleed Diverticulitis s/p partial colectomy Suspected Crohn's disease History of diverticulitis s/p partial colectomy, but recently with GI bleed in Apr 2023. Colonoscopy with concern for Crohn's disease, discharged on steroid taper. - Continue pantoprazole 40 mg daily - Continue prednisone 20mg daily - Outpatient follow up with GI Urethral stricture s/p dilation Urology consulted and dilation performed at OSH, brown removed prior to transfer. - Continue flomax, monitor for signs of retention Anxiety - Continue ativan 0.5 mg po BID prn and duloxetine 60mg daily Leukocytosis - Likely due to known infection as above, continue to monitor Basal Cell Carcinoma - wide excision - Mohs procedure Problem list reviewed at admission. Complexity. Any conditions listed below are present on admission unless otherwise specified. .Chronic Iron Deficiency Anemia - hold home iron supplementation in setting of acute infection Complexity. Any conditions listed below are present on admission unless otherwise specified. . DVT prophylaxis with heparin gtt Anticipated Disposition: home Code status is Full Code Interval History / Subjective Patient is contemplating what to do about the antibiotics neigher option is sounding good to him going sami eiwt abx makes him nervious and snf as well isn't ideal Objective Temp: [97.5 F (36.4 C)-98.8 F (37.1 C)] 98.8 F (37.1 C) Pulse (Heart Rate): [64-79] 64 Resp Rate: [16-18] 18 BP: (110-133)/(55-73) 116/65 O2 Sat (%): [95 %-100 %] 95 % Physical Exam Gen: A, A, NAD Neck : pearly lesion on the right neck , right neck line in place ENT: MMM Resp: CTA bilat, normal effort Cardio: RRR, normal S1, S2, No DADA GI: S/NT/ND, NABS Psych: Ox3, appropriate affect and cognition Data Review WBC/Hgb/Hct/Plts: --/--/--/287 (06/09 2018) Na/K+/Phos/Mg/Ca: 138/3.9/--/1.8/-- (06/10 326) Bun/Creat/Cl/CO2/Glucose: 21/0.91/104/26/87 (06/10 326) Ptt/Pt/Inr: 62.5/17.1/1.4 (06/10 326-06/10 1317) Cxr pulm edema Department of Pharmacy Pharmacokinetics Progress Note Patient: Markus Nava Room/Bed: 7032/A Assessment and Plan: Based upon drug level assessment and interpretation (steady state), I have changed the gentamicin dose and/or dosing interval to 60 mg IV every 12 hours. Next dose to start at 2100 on 06/10/23. A pharmacist will continue to follow and order drug levels and adjust dosing as clinically appropriate. I have modified the orders in IS to reflect the above plan. Gentamicin Regimen at Time of Level: Gentamicin 60 mg IV every 8 hours. Desired Therapeutic Trough Concentration: <1 g/mL Last Doses Administered: Dose: Date: Time: 60mg 06/10 05:56 Gentamicin Levels: 1.5 g/mL drawn at 13:18 on 06/10 (drawn 7 hours after previous dose) Most Recent Labs: WBC Count Date Value Ref Range Status 06/08/2023 15.06 (H) 3.73 - 10.10 K/uL Final BUN Date Value Ref Range Status 06/10/2023 21 7 - 25 mg/dL Final Creatinine Date Value Ref Range Status 06/10/2023 0.91 0.70 - 1.30 mg/dL Final I/O last 3 completed shifts: In: 2189.2 [P.O.:1290; I.V.:250.5; IV Piggyback:648.7] Out: 5800 [Urine:5800] Estimated Creatinine Clearance: 81 mL/min (by C-G formula based on SCr of 0.91 mg/dL). Please feel free to contact me with any further questions. Name: Kelvin Pitts RPH Phone: [phone] Date/Time: 06/10/2023 3:10 PM Images from the original note were not included. CARDIOLOGY CONSULT PROGRESS NOTE Cardiology consulted 06/06/2023 for 78y M with hx of aortic valve replacement now with MSSA bacteremia and AV endocarditis HPI I saw Mr. Markus Nava in follow-up on 06/10/2023. He is a 78 y.o. male with a history of streptococcal endocarditis of AV s/p AVR (1996) c/b graft dilation and aortic insufficiency s/p Bentall procedure (2001), AF, diverticulitis s/p partial colectomy with c/f Crohn's, anxiety and depression who initially presented to an OSH 06/02/23 with fevers and chills, found to have MSSA bacteremia and septic shock c/b AF with RVR, with FER revealing a vegetation on the aortic valve prompting tx to [facility] on 06/06/2023. 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 FER 06/05/23 showed AV freely mobile mass c/w vegetation measuring 1.1cm x0.7cm. Blood cultures NTD since 06/08/22, last positive on 06/06/22 - CTS Dr. Sabillon following, recommend completing AB course and follow-up echo in 4-6 weeks with outpatient CTS follow-up - ABs per ID - Recommend daily ECGs and continuous telemetry to monitor for high degree AV block - Consider dermatology consult for skin lesion on chin, concern this is the sourse of infection given patient reporting picking at the lesion regularly. Of note he was told by his oncologist friend that the lesion looked like basal cell carcinoma - Please set him up with his outpatient pediatric anesthesiologist in [place] to be seen within 1 month of discharge History of AVE s/p mechanical AVR: history of AVE 2/2 strep s/p AVR and reconstruction of RVOT using 29mm pulmonary homograft c/b graft dilation and AI s/p modified Bentall procedure with AVR and aortic root replacement using 25mm St. Shane and hemashield composite graft in 2001. - Continue systemic AC with warfarin and heparin gtt bridge. Goal INR 2.5-3.5 given mechanical AV with risk factors (AF). Would monitor closely for any evidence of septic emboli to brain given c/f hemorrhagic conversion while on AC. Acute HFmrEF: TTE 06/02/23 showed LVEF 40-45% and FER 06/05/23 showed LVEF 50% in setting of sepsis and AVE and mild to moderate MR. - Net negative 2 Liters in the last 24 hours/net positive 7.5 Liters this admission. Creatinine stable. Warm and wet on exam today, creatinine stable - Recommend repeat lasix 40mg IV daily today and would concentrate IVAB volume as able - GDMT: recommend transition from metoprolol to Toprol xl tomorrow. Would add losartan 12.5mg daily when BP allows - Strict I/Os, daily weight, optimize lytes to keep K>4 and Mg>2 Paroxysmal atrial fibrillation: known history since 2001. RVR noted at OSH in the setting of MSSA bacteremia, septic shock. Initiated on amio gtt and transitioned to PO amio. - Currently in rate-controlled AF. - Continue rate control with BB and amiodarone - [id number] is 3, continue systemic AC with warfarin and heparin gtt bridge. Goal INR 2.5-3.5 - Ongoing supportive care of underlying illness, volume status - Maintain electrolytes for K>4, Mg>2 Other hospital problems Diverticulitis s/p partial colectomy: ?Crohn's disease on colonoscopy, on prednisone and PPI. Follows with outpatient GI Urethral stricture: s/p dilation by urology at OSH, on flomax Anxiety/depression: on ativan and duloxetine History of GIB: 04/2023 INTERVAL HISTORY/REVIEW OF SYSTEMS Over the last day, he had no acute events. Review of Systems Constitutional: Negative for fatigue. Respiratory: Positive for shortness of breath. Cardiovascular: Positive for leg swelling. Negative for chest pain. Gastrointestinal: Negative for nausea and vomiting. Neurological: Negative for dizziness and light-headedness. PHYSICAL EXAM BP 133/60 (BP Location: Left arm, BP Position: Sitting) Pulse 69 Temp 97.7 F (36.5 C) (Axillary) Resp 18 Ht 1.829 m (6') Comment: estimated Wt 98.5 kg (217 lb 3.2 oz) SpO2 100% BMI 29.46 kg/m Smoking Status Never Constitutional: Awake and in no distress. Chest: Respiratory effort is unlabored. Lungs are diminished in bases, on room air Cardiovascular: JVD appreciated. Normal rate & irregular rhythm; S1 variable, S2 normal. Exam reveals no gallop, no friction rub. +valve click heard throughout. Abdomen: Soft, non-tender, non-distended. +BS. Extremities: 2+ peripheral edema, stasis dermatitis. Radial and pedal pulses preserved. Neurological: Alert and oriented to person, place and time. Skin: Warm, dry. No cyanosis. Nails show no clubbing. CARDIOVASCULAR IMAGING/DATA Cardiac Catheterization 2001 ([facility]) CORONARY ANGIOGRAPHY - Left Coronary Artery: no angiographically definable disease - Right Coronary Artery: no angiographically definable disease {dominant) 24 hour telemetry (personally reviewed): AF rates 70-80s ADDITIONAL DATA REVIEWED Intake/Output Summary (Last 24 hours) at 06/10/2023 0822 Last data filed at 06/10/2023 0700 Gross per 24 hour Intake 2086.32 ml Output 4500 ml Net -2413.68 ml Temp: [97.5 F (36.4 C)-98.8 F (37.1 C)] 97.7 F (36.5 C) Pulse (Heart Rate): [63-73] 69 Resp Rate: [15-18] 18 BP: (110-133)/(55-73) 133/60 O2 Sat (%): [96 %-100 %] 100 % Oxygen Therapy O2 Sat (%): 100 % O2 Device: room air Body mass index is 29.46 kg/m . LABS Bun/Creat/Cl/CO2/Glucose: 21/0.91/104/26/87 (06/10 0327) Na/K+/Phos/Mg/Ca: 138/3.9/--/1.8/-- (06/10 326) WBC/Hgb/Hct/Plts: --/--/--/287 (06/09 2018) No results found for: BNP Lab Results Component Value Date CHOLESTEROL 183 08/28/2001 CHOLESTEROL 183 08/28/2001 TRIG 121 08/28/2001 HDL 35 (L) 08/28/2001 CURRENT MEDICATIONS: AMIOdarone 200 mg Oral Daily ceFAZolin (ANCEF) 3 g in Sodium chloride 0.9%, with overfill 290 mL IV infusion 3 g Intravenous Q12HNS DULoxetine 60 mg Oral Daily gentamicin 60 mg Intravenous Q8HNS Metoprolol 50 mg Oral BID Pantoprazole 40 mg Oral Daily predniSONE 20 mg Oral Daily Tamsulosin HCl 0.4 mg Oral Daily Warfarin 6.5 mg Oral Daily early evening heparin 14 Units/kg/hr (06/10/23 0781) [id number] Score for Atrial Fibrillation Stroke Risk Age in Years: 75+ Sex: Male CHF History: No Hypertension History: Yes Stroke/TIA/Thromboembolism History: No Vascular Disease History: No Diabetes History: No [id number] Score: 3 Thank you for this consult. Please call with questions. We will continue to follow along. Plan of care developed in collaboration with attending pediatric anesthesiologist Dr. Potter. CHEO [facility] Card[facility] Consult Service Phone: [phone] [facility] Medicine Progress Note Patient: Markus Nava, : 1945, Impression / Plan Markus Nava is a 78 y.o. 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 MSSA bacteremia and endocarditis of prosthetic AV valve Initially with septic shock at OSH, now resolved. Found to have MSSA bacteremia. Prosthetic AV vegetation confirmed on OSH FER. - Continue cefazolin 3g q12h over 12 hours for 6 weeks and gentamicin 80mg q8h for a 2 week course. Per OSH records, rifampin was also considered but concerns for drug interaction with amiodarone and not yet started. ID said no rifampin needed at this time as well. - Consult ID gentamicin and cefazolin, opat pending. PICC needs placed. Patient hesitant about managing abx at home as he is not feeling like he can withstand administering himself abx he also does not what to go to a snf. Blood cultures drawn again today, conitnue to be positive from 06/06. - Consult cardiology and cardiothoracic surgery - Follow up OSH Bcx to ensure clearance of bacteremia Supratherapeutic INR - resolved Mechanical aortic valve present INR 3.8 on admission to OSH, 3.4 today per OSH records. INR 2.5 on admission here. Restart warfarin Atrial fibrillation CHADSVASC 3 (age, HTN). RVR at OSH, started on amiodarone. - Continue amiodarone 200 mg daily - Continue metoprolol 50mg BID - Telemetry - Cardiology consult as above History of GI bleed Diverticulitis s/p partial colectomy Suspected Crohn's disease History of diverticulitis s/p partial colectomy, but recently with GI bleed in Apr 2023. Colonoscopy with concern for Crohn's disease, discharged on steroid taper. - Continue pantoprazole 40 mg daily - Continue prednisone 20mg daily - Outpatient follow up with GI Urethral stricture s/p dilation Urology consulted and dilation performed at OSH, brown removed prior to transfer. - Continue flomax, monitor for signs of retention Anxiety - Continue ativan 0.5 mg po BID prn and duloxetine 60mg daily Leukocytosis - Likely due to known infection as above, continue to monitor Problem list reviewed at admission. Complexity. Any conditions listed below are present on admission unless otherwise specified. .Chronic Iron Deficiency Anemia - hold home iron supplementation in setting of acute infection Complexity. Any conditions listed below are present on admission unless otherwise specified. . DVT prophylaxis with heparin gtt Anticipated Disposition: home Code status is Full Code Interval History / Subjective Patient is contemplating what to do about the antibiotics neigher option is sounding good to him going sami eiwth abx makes him nervious and snf as well isn't ideal Objective Temp: [98 F (36.7 C)-98.8 F (37.1 C)] 98.8 F (37.1 C) Pulse (Heart Rate): [63-74] 66 Resp Rate: [15-18] 15 BP: (112-132)/(57-69) 112/69 O2 Sat (%): [96 %-100 %] 98 % Physical Exam Gen: A, A, NAD Neck : pearly lesion on the right neck , right neck line in place ENT: MMM Resp: CTA bilat, normal effort Cardio: RRR, normal S1, S2, No DADA GI: S/NT/ND, NABS Psych: Ox3, appropriate affect and cognition Data Review Na/K+/Phos/Mg/Ca: 137/4.2/--/1.9/-- (06/09 0037) Bun/Creat/Cl/CO2/Glucose: 23/0.93/104/26/100 (06/09 0037) Ptt/Pt/Inr: 101.7/--/-- (06/09 1257) Cxr pulm edema Images from the original note were not included. CARDIOLOGY CONSULT PROGRESS NOTE Cardiology consulted 06/06/2023 for 78y M with hx of aortic valve replacement now with MSSA bacteremia and AV endocarditis HPI I saw Mr. Markus Nava in follow-up on 06/09/2023. He is a 78 y.o. male with a history of streptococcal endocarditis of AV s/p AVR (1996) c/b graft dilation and aortic insufficiency s/p Bentall procedure (2001), AF, diverticulitis s/p partial colectomy with c/f Crohn's, anxiety and depression who initially presented to an OSH 06/02/23 with fevers and chills, found to have MSSA bacteremia and septic shock c/b AF with RVR, with FER revealing a vegetation on the aortic valve prompting tx to [facility] on 06/06/2023. 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 FER 06/05/23 showed AV freely mobile mass c/w vegetation measuring 1.1cm x0.7cm. Blood cultures NTD since 06/08/22, last positive on 06/06/22 - CTS Dr. Sabillon following, recommend completing AB course and follow-up echo in 4-6 weeks with outpatient CTS follow-up - ABs per ID - Recommend daily ECGs and continuous telemetry to monitor for high degree AV block - Consider dermatology consult for skin lesion on chin, concern this is the sourse of infection given patient reporting picking at the lesion regularly. Of note he was told by his oncologist friend that the lesion looked like basal cell carcinoma - Please set him up with his outpatient pediatric anesthesiologist in [place] to be seen within 1 month of discharge History of AVE s/p mechanical AVR: history of AVE 2/2 strep s/p AVR and reconstruction of RVOT using 29mm pulmonary homograft c/b graft dilation and AI s/p modified Bentall procedure with AVR and aortic root replacement using 25mm St. Shane and hemashield composite graft in 2001. - Home warfain on hold, continue systemic AC with heparin gtt. Would monitor closely for any evidence of septic emboli to brain given c/f hemorrhagic conversion while on AC. When warfarin resumed INR goal will be 2.5-3.5 given mechanical AV with risk factors (AF) Acute HFmrEF: TTE 06/02/23 showed LVEF 40-45% and FER 06/05/23 showed LVEF 50% in setting of sepsis and AVE and mild to moderate MR. - Net positive 1.9 Liters in the last 24 hours/net positive 2 Liters this admission. Creatinine stable. Warm and wet on exam today - Recommend cautious diuresis with lasix 20mg IV x1 today and would concentrate IVAB volume as able - GDMT: recommend transition from metoprolol to Toprol xl tomorrow. Would add losartan 12.5mg daily when BP allows - Strict I/Os, daily weight, optimize lytes to keep K>4 and Mg>2 Paroxysmal atrial fibrillation: known history since 2001. RVR noted at OSH in the setting of MSSA bacteremia, septic shock. Initiated on amio gtt and transitioned to PO amio. - Currently in rate-controlled AF. - Continue rate control with BB and amiodarone - [id number] is 3, home warfarin on hold currently on heparin gtt. - Ongoing supportive care of underlying illness, volume status - Maintain electrolytes for K>4, Mg>2 Other hospital problems Diverticulitis s/p partial colectomy: ?Crohn's disease on colonoscopy, on prednisone and PPI. Follows with outpatient GI Urethral stricture: s/p dilation by urology at OSH, on flomax Anxiety/depression: on ativan and duloxetine History of GIB: 04/2023 INTERVAL HISTORY/REVIEW OF SYSTEMS Over the last day, he had no acute events. Review of Systems Constitutional: Negative for fatigue. Respiratory: Positive for shortness of breath. Cardiovascular: Positive for leg swelling. Negative for chest pain. Gastrointestinal: Negative for nausea and vomiting. Neurological: Negative for dizziness and light-headedness. PHYSICAL EXAM BP 116/62 (BP Location: Left arm, BP Position: Sitting) Pulse 74 Temp 98.2 F (36.8 C) (Oral) Resp 16 Ht 1.829 m (6') Comment: estimated Wt 98.5 kg (217 lb 3.2 oz) SpO2 100% BMI 29.46 kg/m Smoking Status Never Constitutional: Awake and in no distress. Chest: Respiratory effort is unlabored. Lungs are diminished in bases, on room air Cardiovascular: JVD appreciated. Normal rate & irregular rhythm; S1 variable, S2 normal. Exam reveals no gallop, no friction rub. +valve click heard throughout. Abdomen: Soft, non-tender, non-distended. +BS. Extremities: 2+ peripheral edema, stasis dermatitis. Radial and pedal pulses preserved. Neurological: Alert and oriented to person, place and time. Skin: Warm, dry. No cyanosis. Nails show no clubbing. CARDIOVASCULAR IMAGING/DATA Cardiac Catheterization 2001 ([facility]) CORONARY ANGIOGRAPHY - Left Coronary Artery: no angiographically definable disease - Right Coronary Artery: no angiographically definable disease {dominant) 24 hour telemetry (personally reviewed): AF rates 70-80s ADDITIONAL DATA REVIEWED Intake/Output Summary (Last 24 hours) at 06/09/2023 0945 Last data filed at 06/09/2023 0900 Gross per 24 hour Intake 3046.98 ml Output 1075 ml Net 1971.98 ml Temp: [98 F (36.7 C)-99.3 F (37.4 C)] 98.2 F (36.8 C) Pulse (Heart Rate): [65-76] 74 Resp Rate: [14-18] 16 BP: (110-132)/(55-63) 116/62 O2 Sat (%): [96 %-100 %] 100 % Oxygen Therapy O2 Sat (%): 100 % O2 Device: room air Body mass index is 29.46 kg/m . LABS Bun/Creat/Cl/CO2/Glucose: 23/0.93/104/26/100 (06/09 36) Na/K+/Phos/Mg/Ca: 137/4.2/--/1.9/-- (06/09 36) No results found for: BNP Lab Results Component Value Date CHOLESTEROL 183 08/28/2001 CHOLESTEROL 183 08/28/2001 TRIG 121 08/28/2001 HDL 35 (L) 08/28/2001 CURRENT MEDICATIONS: AMIOdarone 200 mg Oral Daily ceFAZolin (ANCEF) 3 g in Sodium chloride 0.9%, with overfill 290 mL IV infusion 3 g Intravenous Q12HNS DULoxetine 60 mg Oral Daily gentamicin 60 mg Intravenous Q8HNS Metoprolol 50 mg Oral BID Pantoprazole 40 mg Oral Daily predniSONE 20 mg Oral Daily Tamsulosin HCl 0.4 mg Oral Daily heparin 15 Units/kg/hr (06/09/23 0647) [id number] Score for Atrial Fibrillation Stroke Risk Age in Years: 75+ Sex: Male CHF History: No Hypertension History: Yes Stroke/TIA/Thromboembolism History: No Vascular Disease History: No Diabetes History: No [id number] Score: 3 Thank you for this consult. Please call with questions. We will continue to follow along. Plan of care developed in collaboration with attending pediatric anesthesiologist Dr. Potter. [facility] Consult Service Phone: [phone] BRIEF NUTRITION NOTE: Current Diet Orders Procedures DIET HEART HEALTHY - 4 GM SODIUM Standing Status: Standing Number of Occurrences: 1 Pt with no significant nutrition changes over the past week. Tolerating diet with adequate po intake. No notable wt changes. 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 Basil Galindo DTR Pager: [phone] [facility] Medicine Progress Note Patient: Markus Nava, : 1945, Impression / Plan Makrus Nava is a 78 y.o. 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 MSSA bacteremia and endocarditis of prosthetic AV valve Initially with septic shock at OSH, now resolved. Found to have MSSA bacteremia. Prosthetic AV vegetation confirmed on OSH FER. - Continue cefazolin 3g q12h over 12 hours for 6 weeks and gentamicin 80mg q8h for a 2 week course. Per OSH records, rifampin was also considered but concerns for drug interaction with amiodarone and not yet started - Consult ID gentamicin and cefazolin, opat pending. PICC needs placed. Patient hesitant about managing abx at home as he is not feeling like he can withstand administering himself abx he also does not what to go to a snf. Blood cultures drawn again today, conitnue to be positive from 06/06. - Consult cardiology and cardiothoracic surgery - Follow up OSH Bcx to ensure clearance of bacteremia Supratherapeutic INR - resolved Mechanical aortic valve present INR 3.8 on admission to OSH, 3.4 today per OSH records. INR 2.5 on admission here. - Continue holding warfarin, recheck INR in AM. Goal 2.5-3.5, if less than goal will start heparin gtt in case of any surgical interventions Atrial fibrillation CHADSVASC 3 (age, HTN). RVR at OSH, started on amiodarone. - Continue amiodarone 200 mg daily - Continue metoprolol 50mg BID - Telemetry - Cardiology consult as above History of GI bleed Diverticulitis s/p partial colectomy Suspected Crohn's disease History of diverticulitis s/p partial colectomy, but recently with GI bleed in Apr 2023. Colonoscopy with concern for Crohn's disease, discharged on steroid taper. - Continue pantoprazole 40 mg daily - Continue prednisone 20mg daily - Outpatient follow up with GI Urethral stricture s/p dilation Urology consulted and dilation performed at OSH, brown removed prior to transfer. - Continue flomax, monitor for signs of retention Anxiety - Continue ativan 0.5 mg po BID prn and duloxetine 60mg daily Leukocytosis - Likely due to known infection as above, continue to monitor Problem list reviewed at admission. Complexity. Any conditions listed below are present on admission unless otherwise specified. .Chronic Iron Deficiency Anemia - hold home iron supplementation in setting of acute infection Complexity. Any conditions listed below are present on admission unless otherwise specified. . DVT prophylaxis with heparin gtt Anticipated Disposition: home Code status is Full Code Interval History / Subjective Patient not able to administer himself abx, doesn't want to go to snf given his jobs. Objective Temp: [98 F (36.7 C)-99.3 F (37.4 C)] 98.9 F (37.2 C) Pulse (Heart Rate): [65-78] 65 Resp Rate: [14-22] 14 BP: (110-124)/(55-87) 110/55 O2 Sat (%): [90 %-100 %] 96 % Physical Exam Gen: A, A, NAD Neck : pearly lesion on the right neck , right neck line in place ENT: MMM Resp: CTA bilat, normal effort Cardio: RRR, normal S1, S2, No DADA GI: S/NT/ND, NABS Psych: Ox3, appropriate affect and cognition Data Review WBC/Hgb/Hct/Plts: 15.06/10.2/32.6/226 (06/08 110) Na/K+/Phos/Mg/Ca: 137/3.9/--/2.0/-- (06/08 110) Bun/Creat/Cl/CO2/Glucose: 20/0.92/103/25/116 (06/08 110) Ptt/Pt/Inr: 69.8/--/-- (06/08 1135) Cxr pulm edema Cardiac Surgery -- Progress Note We were asked to offer our opinion on the evaluation and treatment of Bio AV endocarditis. RECOMMENDATIONS: Due to patient's current condition, at the present time we recommend a completed course of antibiotics with repeat ECHO in 4-6 weeks (at completion of antibiotics as directed by ID) followed by outpatient cardiac surgery follow up with Dr. Sabillon. For Endocarditis patients -- please notify our service GELACIO if the patient develops any of the following: - acute/worsening heart block on EKG. - hemodynamic instability/cardiogenic shock +/- cardiac ischemia on EKG or evidence of heart failure. - evidence of recurrent SYSTEMIC embolization. - while persistent bacteremia can be an indication for surgery, every attempt is made to maximize antibiotic therapy prior to surgery unless one of the above becomes an issue. Should the patient have appropriate discharge plans in place, the patient may be discharged and return to see us in clinic for appropriate follow-up. Please contact our offices at [phone] to schedule. This patient was discussed with Dr. Titi Sabillon MD. We will sign off. Please call with any additional questions or concerns. Thank you. CHEO Perdue OS Cardiothoracic Surgery Inpatient Nurse Practitioner Phone #[phone] [facility] Coordination Note Patient received in handoff from case worker for potential homecare services. Referrals place in aidin, awaiting responses. Will continue to follow with case worker for plan of care. [facility] Following Physician Confirmation Following Physician:Louie Burns DO Physician Service: Primary Care Agreeable to Follow: Yes Date/Time of Call: 06/08/23 at 1630 Spoke with: Dunia Chung [facility] RN Discharge Plan Expected Discharge Date: 06/12/2023 Referred Level of Care: Home Infusion/Home Health Care Barriers: Cultures, ID final recs, Accepting HHC/INF Current Referrals and Status CM met with patient to discuss discharge planning needs/home infusion. Patient initially upset and agitated with conversation. CM returned for further discussion after Medical Team reviewed plan of care with patient. Patient more agreeable to home infusion. CM contacted [facility] for assistance with referrals to home health/home infusion. CM will continue follow up and assist with discharge planning. Radha KEN Clinical [employer]ner [facility] Department of Pharmacy Pharmacokinetics Progress Note Patient: Андрей Tidwell Room/Bed: 7010/A Assessment and Plan: Based upon drug level assessment and interpretation (steady state), I have changed the gentamicin dose and/or dosing interval to 60 mg IV every 8 hours to give a predicted trough of 0.8 g/mL. Next dose to start at 1400 on 06/08. A pharmacist will continue to follow and order drug levels and adjust dosing as clinically appropriate. I have modified the orders in I[facility]IS to reflect the above plan. Gentamicin Regimen at Time of Level: Gentamicin 80 mg IV every 8 hours. Desired Therapeutic Peak Concentration: N/A for synergy Desired Therapeutic Trough Concentration: <1 g/mL Last Doses Administered: Dose: Date: Time: 80 mg 06/08 0323 80mg 06/07 180 Gentamicin Levels: 1.1 g/mL drawn at 0111 on 06/08 (drawn 7 hours after previous dose) Most Recent Labs: WBC Count Date Value Ref Range Status 06/08/2023 7.81 3.73 - 10.10 K/uL Final BUN Date Value Ref Range Status 06/08/2023 87 (H) 7 - 25 mg/dL Final Creatinine Date Value Ref Range Status 06/08/2023 9.70 (H) 0.70 - 1.30 mg/dL Final I/O last 3 completed shifts: In: 8141 [P.O.:100; I.V.:383.5; Blood:357.5; Dialysis:7300] Out: 7300 Estimated Creatinine Clearance: 80 mL/min (by C-G formula based on SCr of 0.92 mg/dL). Please feel free to contact me with any further questions. Name: Haley Mahmood RPH Phone: [phone] Date/Time: 06/08/2023 11:46 AM Acute Occupational Therapy Evaluation Prior to Admission AM-PAC Score: PRIOR LEVEL AM-PAC Activity Raw Score: 24 Current AM-PAC score(s): CURRENT AM-PAC Activity Raw Score: 23 Based on the above AM-PAC score(s) and OT clinical judgment, discharge destination recommendation is: Home Pt was able to ambulate around the room and then walk 400 feet out the room without equipment nor SOB. Pt is at his baseline. Mobility equipment available at home: none used ADL equipment available at home: none Equipment recommendations for discharge: Current therapy frequency recommendation(s) in acute: no therapy warranted Precautions and Weightbearing Status: OT Existing Precautions/Restrictions: fall, cardiac Telemetry Patient Safety Communication Prior to Visit: Nursing Subjective: pt was alert and agreeable to therapy. 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 Level of Function Prior level ADL Overview: Independent with all ADLs Dominant Hand: Ambidextrous, Left Bed Mobility/Transfers: independent Ambulation Skills: independent Assistive Device: none used Level of Ambulation: community 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 History IADLs: independent Primary Language: Portuguese Objective/Observation: Vitals/Vitals Responses to Treatment: Vitals HR (bpm) BP (mmHg) SpO2 (%) 83 122/87 O2 Device: room air Vision Screen Currently wearing corrective lenses: No Visual Impairments Observed?: No Speech Speech: no gross deficits noted Successful Methods (Communication Strategies): verbal speech Hearing Hearing: no gross deficits noted Cognition Overall Cognitive Status: Within Functional Limits Arousal/Alertness: Appropriate responses to stimuli Orientation Level: Oriented X4 Following Commands: Follows commands greater than 75% of the time Safety Judgment: Good awareness of safety precautions Deficits: Fully aware of deficits Memory: Appears intact ADLs: ADL Anticipated Performance (ADLs not directly observed this session): Eating, Grooming, Bathing, UE Dressing, LE Dressing, Toileting Eating Assistance: Independent Eating Location: chair Grooming Assistance: Independent Grooming Location: seated in chair Bathing Assistance: Modified independent Bathing Location: seated on shower chair UE Dressing Assistance: Independent UE Dressing Location: seated in chair LE Dressing Assistance: Supervision LE Dressing Location: seated in chair Toilet Assistance: Independent Toileting Location: toilet Extremity Assessments: RUE Assessment RUE Assessment: Within Functional Limits Right UE Assessment Details: 10/06 LUE Assessment LUE Assessment: Within Functional Limits Left UE Assessment Details: 10/06 Balance: Sitting Balance Static Sitting-Level of Assistance: Independent Dynamic Sitting-Level of Assistance: Independent Standing Balance Static Standing-Level of Assistance: Supervision Dynamic Standing-Level of Assistance: Supervision Neuro: Sensation Overall Sensation: Intact Proprioception Proprioception: intact Gross Coordination Gross Coordination: bilat UE intact Fine Motor Coordination Additional Documentation: (intact) Skin and Edema: Skin Integrity Skin Integrity Description: WFL Edema Edema: present Location: very mild bilat LEs Mobility Assessment: Transfer Assessment: Sit to Stand Transfer [place] Level: Sit->Stand: modified independence Skilled Rationale: Verbal cues Functional Mobility: Functional Mobility [place] Level: Functional Mobility/Gait: supervision Functional Mobility Skilled Rationale: Verbal cues CURRENT [facility] Daily Activity Inpatient Short Form Putting on/Taking Off Lower Body Clothin - A Little Assistance Bathin - No Assistance Toiletin - No Assistance Putting on/Taking Off Upper Body Clothin - No Assistance Groomin - No Assistance Eatin - No Assistance CURRENT AM-PAC Activity Raw Score: 23 CURRENT AM-PAC Activity Functional Limitation/Modifier: 15.86% Currently Impaired in Daily Activity - CI PROJECTED AM-PAC Activity Raw Score: 24 PROJECTED AM-PAC Activity Functional Limitation/Modifier: 0.00% - Assessment & Plan: Patient was admitted for endocarditis and seen for therapy evaluation related to improved endurance and safety with OOB ADLs. Exam findings include impairments in: endurance. These impairments contribute to occupational performance limitations including ADL transfers. The following factors impact the plan of care: Patient will benefit from skilled occupational therapy to address these impairments, occupational performance limitations, and participation restrictions. Patient's rehab potential is: fair. Patient Instruction/Education this session: OT educated pt on the benefit of slower pace with OOB ADLs Plan for next session: Acute OT Goals Plan of Care by Karthik Downey OT at 06/08/2023 9:58 AM Version 1 of 1 Problem: OT - Endurance Goal: Endurance Functional Mobility - Patient will complete distance needed for common household mobility with no greater than 1 rest breaks for improved tolerance to safely complete I/ADL's Outcome: Ongoing OT treatment consisted of the following to work and progress towards the above goal(s): OT Evaluation and Treatment Time OT Evaluation (Low) Time Entry: Evaluating Therapist: Karthik Downey OT Additional Details: OT Co-Eval/Treatment Information Co-evaluation/co-treatment performed?: Yes, simultaneous billable skilled care was necessary due to medical complexity and functional deficits Other discipline: PT Rationale for need to co-eval/treat: coordination issues Co-treatment goal focus: endurance OT Evaluation Complexity Occupational Profile and Client History: Low - brief history Assessment of Occupational Performance: Low (1-3 performance deficits) Clinical Decision/Performance Deficits: Low (problem-focused assessments w/limited treatment options) Time In: 936 Time Out: 957 Total Visit Time: 21 minutes Total Treatment Time (skilled, billable minutes): 21 minutes Assisted by during session: PT PPE used during patient interaction: gloves, facemask Patient location at end of session: edge of bed Alarms on at end of session: RN aware Needs in reach. Upon discontinuation of Acute Care Occupational Therapy Services or patient discharge from the hospital this note represents the current Occupational Therapy Discharge Summary. Acute Physical Therapy Evaluation Prior to Admission AMPA score(s): PRIOR LEVEL AM-PAC Mobility Raw Score: 24 Current AM-PAC score(s): CURRENT AM-PAC Mobility Raw Score: 21 Based on the Gait speed, 5xSTS, AM-PAC score(s) and PT clinical judgment, patient is a good candidate for discharge to Home Barriers to discharge home: None Highest Level of activity achieved on this date Gait [place] Level: Gait: contact guard assist Ambulation Distance (Feet): (430ft) no AD, no LOB Mobility equipment available at home: none used ADL equipment available at home: none Equipment needed for discharge: none Current therapy frequency recommendation in acute: Therapy Frequency: no therapy warranted Activity Recommendations for outside of rehab session: Ambulate in hallways with RN or BRANDS EDITOR x3 daily Precautions and Weightbearing Status: Existing Precautions/Restrictions: fall Telemetry Patient Safety Communication Prior to Visit: Nursing Subjective: Pt awake , alert, agreeable. Pt reports that he has been walking in room and does not have any functional concerns Pain: General Pain Documentation (Adult, OB, Peds) Presence of Pain: denies pain/discomfort Presence of Pain Score (Auto-calculated): 0 DVPRS (Defense and Veterans Pain Rating Scale) DVPRS: Rest: 0- no pain DVPRS: Activity: 0- no pain Home Setting Residence: House Lives With: alone (girlfriend of 15 yrs - lives apart but sees eachother 2x week) First floor setup: walk-in shower Second floor setup: bedroom Number of stairs to enter home: 0 Number of stairs in home: 11 Stair Railings at Home: interior - present on left side (ascending) Mobility Equipment Available: none used ADL Equipment Available: none 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 No abnormal vitals changes occurred in response to activity. Pt's vitals stable at end of session. O2 Device: room air Cognition Overall Cognitive Status: Within Functional Limits Arousal/Alertness: Appropriate responses to stimuli Orientation Level: Oriented X4 Following Commands: Follows all commands and directions without difficulty Safety Judgment: Good awareness of safety precautions Awareness of Errors: Good awareness of errors made Deficits: Fully aware of deficits Vision Screen Currently wearing corrective lenses: No Speech Speech: no gross deficits noted Hearing Hearing: no gross deficits noted Extremity Assessments: RLE Assessment RLE Assessment: Within Functional Limits LLE Assessment LLE Assessment: Within Functional Limits Sensation Overall Sensation: Intact Skin Integrity Skin Integrity Description: WFL Edema Edema: none noted Mobility Assessment: Balance: Sitting Balance Static Sitting-Level of Assistance: Independent Dynamic Sitting-Level of Assistance: Independent Standing Balance Static Standing-Level of Assistance: Supervision Dynamic Standing-Level of Assistance: Supervision Skilled Rationale: Hand placement, Verbal cues, Cues for increased safety Standing Balance Skilled Intervention/Details: Cues for LUCILLE and Equal step length/ width Transfer Assessment: Sit to Stand Transfer [place] Level: Sit->Stand: supervision Skilled Rationale: Hand placement, Verbal cues, Cues for increased safety, Facilitate anterior shift Skilled Intervention/Details: Sit->Stand: cues for STS mechanics and increased safety Stand to Sit Transfer [place] Level: Stand->Sit: supervision Skilled Rationale: Hand placement, Verbal cues, Technique of activity Gait/Functional Mobility: Gait Assessment [place] Level: Gait: contact guard assist Ambulation Distance (Feet): (430ft) Gait Deviations Identified: decreased david, decreased step length Gait Skilled Rationale: verbal, upright posture Skilled Intervention/Details - Gait: Cues for equal step length Stairs: Stairs Assessment [place] Level: Stair Negotiation: not tested Outcome Score(s): Pt performed the 5x sit to stand test on this date and scored a 11 seconds, placing the patient as not a fall risk as seen in the chart below. Geriatrics Vestibular Disorders Parkinsons Disease > or = 12 seconds: further fall assessment needed1 > 15 seconds: fall risk3 > 16 seconds: fall risk4 > 15 seconds: recurrent falls2 1TieBijal landry, Felisaada, H., et al. (2008). 2BMehdi zimmer, Zack Farah, et al. (2010). 3BMehdi zimmer, [place] Vital, et al. (2008). 4DBj loyola, Russ ABelgica Mayorga, et al. (2011). Pt with average gait speed of 1.1 meters/sec on this date during testing, placing patient as able to perform community ambulation as seen in the chart below. Walking speed classification Household ambulation Limited Community ambulation Community ambulation [facility] safely 0 - 0.4 meter/sec 0.4 - 0.8 meter/sec 0.8 - 1.3 meter/sec >1.4 meter/sec Dylan Marc, Quinn Veloz (2015) CURRENT AM-[facility] Basic Mobility Inpatient Short Form Turning over in bed: 4 - No Assistance Sitting/standing from chair: 4 - No Assistance Moving from lying on back to sittin - No Assistance Moving to and from bed to chair: 3 - A Little Assistance Walk in hospital room: 3 - A Little Assistance Climbing 3-5 steps with a railin - A Little Assistance CURRENT -[facility] Mobility Raw Score: 21 CURRENT [facility] Mobility Functional Limitation/Modifier: 28.97% Currently Impaired in Basic Mobility - CJ Assessment & Plan: Patient was admitted for Endocarditis and seen for therapy evaluation related to Decreased functional tolerance. Exam findings include impairments in: Other (see comments) (None). These impairments contribute to functional limitations including (None). Patient tolerated session well with no adverse events. Pt does not require skilled therapy at this time Current clinical presentation is Stable - unchanging or predictable (Low). Patient history factors impacting Plan Of Care include medical status. Patient will benefit from skilled physical therapy to address these impairments, functional limitations, and participation restrictions and has good (no therapy warrented) rehab potential to achieve therapy goals. Planned Therapy Interventions: (none) Patient Instruction/Education this session: PT role, session goals Plan for next session: No therapy warrented Acute PT Goals Plan of Care by Ross Stone PT at 06/08/2023 9:37 AM Version 1 of 1 Problem: PT - General Goals Goal: Ambulation - Patient will ambulate 250 feet with independence and without an assistive device to improve ability to safely navigate home and community. Outcome: Adequate for Discharge PT treatment consisted of the following to progress towards the above goal(s): PT Evaluation and Treatment Time PT Evaluation (Low) Time Entry: 23 Evaluating Therapist: Ross Stone PT Additional Details: PT Co-Eval/Treatment Information Co-evaluation/co-treatment performed?: Yes, simultaneous billable skilled care was necessary due to medical complexity and functional deficits Other discipline: OT Rationale for need to co-eval/treat: postural control Co-treatment goal focus: balance, endurance Evaluation Complexity Components History: Moderate (1-2 personal factors and/or comorbidities) Body Systems Review: Low (Addressing 1-2 elements) Clinical Presentation: Stable - unchanging or predictable (Low) Clinical Decision Making: Low Time In: 0937 Time Out: 1000 Total Visit Time: 23 minutes Total Treatment Time (skilled, billable minutes): 23 minutes PPE used during patient interaction: facemask, gloves Patient location at end of session: edge of bed, RN aware, lines intact Alarms on at end of session: none, RN aware, none altered Needs in reach. Upon discontinuation of Acute Care Physical Therapy Services or patient discharge from the hospital this note represents the current Physical Therapy Discharge Summary. CARDIOLOGY CONSULT PROGRESS NOTE Cardiology consulted 06/06/2023 for 78y M with hx of aortic valve replacement now with MSSA bacteremia and AV endocarditis HPI I saw Mr. Markus Nava in follow-up on 06/08/2023. He is a 78 y.o. male with a history of streptococcal endocarditis of AV s/p AVR (1996) c/b graft dilation and aortic insufficiency s/p Bentall procedure (2001), AF, diverticulitis s/p partial colectomy with c/f Crohn's, anxiety and depression who initially presented to an OSH 06/02/23 with fevers and chills, found to have MSSA bacteremia and septic shock c/b AF with RVR, with FER revealing a vegetation on the aortic valve prompting tx to [facility] on 06/06/2023. 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 - ID consulted, on abx cefazolin and gentamicin - CT surgery consulted - Continuous telemetry, monitor closely for heart block - Monitoring blood cultures H/o streptococcal endocarditis of AV s/p AVR: 1996, modified Ross, c/b graft dilation and AI requiring modified Bentall procedure in 2001. Chronic AC on Warfarin at home. - Warfarin on hold in case of any surgical procedures, currently on heparin gtt. Goal INR 2.5-3.5 - Follow up timing tbd pending clinical course Paroxysmal atrial fibrillation: pt states he has a hx of AF since his mechanical valve was placed. Initially noted at OSH in the setting of MSSA bacteremia, septic shock. Initiated on amio gtt and transitioned to PO amio. Currently in rate-controlled AF. - [id number] is 3, on heparin gtt - Recommend uptitrating beta edith and discontinuing amiodarone to maintain HR <100 bpm - Ongoing supportive care of underlying illness, volume status - Maintain electrolytes for K>4, Mg>2 Other Problems Diverticulitis s/p partial colectomy ?Crohn's disease Urethral stricture s/p dilation Anxiety/depression INTERVAL HISTORY/REVIEW OF SYSTEMS Over the last day, he had no acute events. Sitting edge of bed. Ambulated multiple laps in the hallway. Feels well. Endorses a history of hallucinations but denies any hallucinations this hospitalization. Review of Systems Constitutional: Negative for fatigue. Respiratory: Negative for shortness of breath. Cardiovascular: Positive for leg swelling (at baseline). Negative for chest pain. Gastrointestinal: Negative for nausea and vomiting. Neurological: Negative for dizziness and light-headedness. PHYSICAL EXAM BP 122/87 (BP Location: Right arm, BP Position: Sitting) Pulse 78 Temp 98.8 F (37.1 C) (Oral) Resp 16 Ht 1.829 m (6') Comment: estimated Wt 98.5 kg (217 lb 3.2 oz) SpO2 90% BMI 29.46 kg/m Smoking Status Never Constitutional: Awake and in no distress. Chest: Respiratory effort is unlabored. Lungs are clear in the upper lobes and coarse in the bases posteriorly without rales, rhonchi or wheezes, room air Cardiovascular: No JVD appreciated. Normal rate & irregular rhythm; S1 variable, S2 normal. Exam reveals no gallop, no friction rub. +valve click heard throughout. Abdomen: Soft, non-tender, non-distended. +BS. Extremities: Trace-1+ peripheral edema, stasis dermatitis. Radial and pedal pulses preserved. Neurological: Alert and oriented to person, place and time. Skin: Warm, dry. No cyanosis. Nails show no clubbing. CARDIOVASCULAR IMAGING/DATA Cardiac Catheterization 2002 ([facility]) CORONARY ANGIOGRAPHY Left Coronary Artery: no angiographically definable disease Right Coronary Artery: no angiographically definable disease {dominant) 24 hour telemetry (personally reviewed): AF rates 70-80s ADDITIONAL DATA REVIEWED Intake/Output Summary (Last 24 hours) at 06/08/2023 1007 Last data filed at 06/08/2023 0900 Gross per 24 hour Intake 1903.43 ml Output 725 ml Net 1178.43 ml Temp: [98 F (36.7 C)-98.8 F (37.1 C)] 98.8 F (37.1 C) Pulse (Heart Rate): [67-81] 78 Resp Rate: [16-22] 16 BP: (115-124)/(59-87) 122/87 O2 Sat (%): [90 %-100 %] 90 % Oxygen Therapy O2 Sat (%): 90 % O2 Device: room air Body mass index is 29.46 kg/m . LABS Bun/Creat/Cl/CO2/Glucose: 20/0.92/103/25/116 (06/08 110) Na/K+/Phos/Mg/Ca: 137/3.9/--/2.0/-- (06/08 110) WBC/Hgb/Hct/Plts: 15.06/10.2/32.6/226 (06/08 110) No results found for: BNP Lab Results Component Value Date CHOLESTEROL 183 08/28/2001 CHOLESTEROL 183 08/28/2001 TRIG 121 08/28/2001 HDL 35 (L) 08/28/2001 CURRENT MEDICATIONS: AMIOdarone 200 mg Oral Daily ceFAZolin (ANCEF) 3 g in Sodium chloride 0.9%, with overfill 290 mL IV infusion 3 g Intravenous Q12HNS DULoxetine 60 mg Oral Daily gentamicin 80 mg Intravenous Q8HNS Metoprolol 50 mg Oral BID Pantoprazole 40 mg Oral Daily predniSONE 20 mg Oral Daily Tamsulosin HCl 0.4 mg Oral Daily heparin 14 Units/kg/hr (06/08/23 0905) [id number] Score for Atrial Fibrillation Stroke Risk Age in Years: 75+ Sex: Male CHF History: No Hypertension History: Yes Stroke/TIA/Thromboembolism History: No Vascular Disease History: No Diabetes History: No [id number] Score: 3 Thank you for this consult. Please call with questions. We will continue to follow along. [facility] Consult Service Phone: [phone] Images from the original note were not included. INFECTIOUS DISEASE FOLLOW-UP NOTE IDENTIFYING INFORMATION PATIENT: Markus Nava REFERRING PROVIDER: Heike Milan MD ADMIT DATE: 06/06/2023 TODAY'S DATE: 06/08/2023 REASON FOR CONSULT 78y M with hx of aortic valve replacement now with MSSA bacteremia and AV endocarditis ASSESSMENT Markus Nava is a 78 y.o. male with previous Streptococcal [place] AV endocarditis requiring Ross procedure (1996) complicated by Graft dilation and AI requiring Bentall procedure (2001) on Warfarin admitted with MSSA endocarditis of mechanical valve. MSSA bacteremia with prosthetic/mechanical AV endocarditis FER (06/05/2023) at [facility] with 1.1cm x 0.7cm mobile vegetation on subaortic valvular lesion. Blood cultures initially positive on 06/02/2023. Started on intermittent Cefazolin with Gentamicin prior to transfer to [facility] on 06/06/2023. History of previous Streptococcal [place] AV endocarditis requiring Ross procedure (1996) complicated by Graft dilation and AI requiring Bentall procedure (2001) Warfarin held and transitioned to Heparin gtt for anticoagulation. Leukocytosis with neutrophilic predominance Normocytic anemia Abnormal LFTs Estimated Creatinine Clearance: 80 mL/min (by C-G formula based on SCr of 0.92 mg/dL). High risk medication use: Aminoglycoside requiring close monitoring of renal function and if long-term use, monitoring for ototoxicity. RECOMMENDATIONS Diagnostics Recommend CVC removal as placed while bacteremic with line holiday, as able. Continue repeat blood cultures every 24-48 hours to monitor for clearance, including today, 06/08/2023. If persistent bacteremia, may need to consider repeat FER to assess for complications such as perivalvular abscess, etc. Would maintain on continuous telemetry to monitor for evidence of interval prolongation. Monitor closely for signs or symptoms of embolic disease. Therapeutics Cefazolin 3g every 12 hours as continuous infusion. Gentamicin 1mg/kg every 8 hours for synergy. Limited use of Rifampin given anticipated initiation of Warfarin again, which would preclude reaching therapeutic INR. Appreciate pharmacy assistance with dosing. ID team 1 will continue to follow. Please call aforementioned team with questions. Discussed with attending, Dr. Knott. Asha Bundy MD Infectious Disease Fellow, PGY-5 SUBJECTIVE/INTERVAL HISTORY Afebrile, hemodynamically stable, and on room air. Repeat blood cultures from 06/06/2023 with MSSA. Feeling well today, working with therapy. Has ambulated around the floor. Review of systems otherwise negative, unless noted above. INPATIENT MEDICATIONS AMIOdarone 200 mg Oral Daily ceFAZolin (ANCEF) 3 g in Sodium chloride 0.9%, with overfill 290 mL IV infusion 3 g Intravenous Q12HNS DULoxetine 60 mg Oral Daily gentamicin 80 mg Intravenous Q8HNS magnesium oxide 400 mg Oral Once Metoprolol 50 mg Oral BID Pantoprazole 40 mg Oral Daily Potassium chloride 40 mEq Oral Once predniSONE 20 mg Oral Daily Tamsulosin HCl 0.4 mg Oral Daily Allergies Allergies Allergen Reactions Alprazolam Other Reaction(s): Other Altered mental status-tolerates lorazepam PHYSICAL EXAM Temp: [98 F (36.7 C)-98.8 F (37.1 C)] 98 F (36.7 C) Pulse (Heart Rate): [67-81] 70 Resp Rate: [16-22] 18 BP: (115-124)/(59-73) 115/66 O2 Sat (%): [96 %-100 %] 98 % Physical Exam Constitutional: General: He is not in acute distress. HENT: Head: Atraumatic. Neck: Comments: CVC in right IJ Cardiovascular: Rate and Rhythm: Normal rate. Heart sounds: Murmur heard. Pulmonary: Effort: No respiratory distress. Breath sounds: Normal breath sounds. Abdominal: General: There is no distension. Palpations: Abdomen is soft. Tenderness: There is no abdominal tenderness. Musculoskeletal: General: No swelling or deformity. Comments: No spinal tenderness. Skin: General: Skin is warm. Neurological: General: No focal deficit present. Mental Status: He is alert. Psychiatric: Mood and Affect: Mood normal. Behavior: Behavior normal. LABS AND IMAGING Lab Results Component Value Date WBC 15.06 (H) 06/08/2023 HGB 10.2 (L) 06/08/2023 HCT 32.6 (L) 06/08/2023 PLATELET 226 06/08/2023 MCV 90.6 06/08/2023 Lab Results Component Value Date SODIUM 137 06/08/2023 POTASSIUM 3.9 06/08/2023 CHLORIDE 103 06/08/2023 CO2 25 06/08/2023 BUN 20 06/08/2023 CREATSERUM 0.92 06/08/2023 Microbiologic Data (personally reviewed): Blood (06/02/2023, [facility]): MSSA Blood (06/06/2023): MSSA (Line & Peripheral) Blood (06/08/2023): No growth to date Urine (06/02/2023): MSSA Imaging (personally reviewed): TTE (06/02/2023): Poor visualization of prosthetic AV. FER (06/05/2023): 1.1x0.7cm vegetation on prosthetic AV. Chest XR (06/06/2023): Pulmonary edema. Associated attestation - Nikos, Vasile Stover MD, PhD - 06/08/2023 2:13 PM EST ID Staff: I have interviewed and examined patient independently (06-08-23) and have discussed case with the ID team. I agree with the findings and recommendations as documented above by Dr. Bundy. Vasile Knott MD, PhD Division of Infectious Diseases [facility] Hospital Medicine Progress Note Patient: Markus Nava, : 1945, Impression / Plan Markus Nava is a 78 y.o. 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 MSSA bacteremia and endocarditis of prosthetic AV valve Initially with septic shock at OSH, now resolved. Found to have MSSA bacteremia. Prosthetic AV vegetation confirmed on OSH FER. - Continue cefazolin 3g q12h over 12 hours for 6 weeks and gentamicin 80mg q8h for a 2 week course. Per OSH records, rifampin was also considered but concerns for drug interaction with amiodarone and not yet started - Consult ID - Consult cardiology and cardiothoracic surgery - Follow up OSH Bcx to ensure clearance of bacteremia Supratherapeutic INR - resolved Mechanical aortic valve present INR 3.8 on admission to OSH, 3.4 today per OSH records. INR 2.5 on admission here. - Continue holding warfarin, recheck INR in AM. Goal 2.5-3.5, if less than goal will start heparin gtt in case of any surgical interventions Atrial fibrillation CHADSVASC 3 (age, HTN). RVR at OSH, started on amiodarone. - Continue amiodarone 200 mg daily - Continue metoprolol 50mg BID - Telemetry - Cardiology consult as above History of GI bleed Diverticulitis s/p partial colectomy Suspected Crohn's disease History of diverticulitis s/p partial colectomy, but recently with GI bleed in Apr 2023. Colonoscopy with concern for Crohn's disease, discharged on steroid taper. - Continue pantoprazole 40 mg daily - Continue prednisone 20mg daily - Outpatient follow up with GI Urethral stricture s/p dilation Urology consulted and dilation performed at OSH, brown removed prior to transfer. - Continue flomax, monitor for signs of retention Anxiety - Continue ativan 0.5 mg po BID prn and duloxetine 60mg daily Leukocytosis - Likely due to known infection as above, continue to monitor Problem list reviewed at admission. Complexity. Any conditions listed below are present on admission unless otherwise specified. .Chronic Iron Deficiency Anemia - hold home iron supplementation in setting of acute infection Complexity. Any conditions listed below are present on admission unless otherwise specified. . DVT prophylaxis with heparin gtt Anticipated Disposition: home Code status is Full Code Interval History / Subjective Feels ok today thinks he got mssa from a right neck basal cell carcinoma ,denies rencent dental work Objective Temp: [98 F (36.7 C)-99 F (37.2 C)] 98.6 F (37 C) Pulse (Heart Rate): [77-100] 78 Resp Rate: [16-24] 22 BP: (117-151)/(59-71) 120/59 O2 Sat (%): [97 %-98 %] 97 % Weight: [98.5 kg (217 lb 3.2 oz)] 98.5 kg (217 lb 3.2 oz) Physical Exam Gen: A, A, NAD Neck : pearly lesion on the right neck , right neck line in place ENT: MMM Resp: CTA bilat, normal effort Cardio: RRR, normal S1, S2, No DADA GI: S/NT/ND, NABS Psych: Ox3, appropriate affect and cognition Data Review WBC/Hgb/Hct/Plts: 14.90/10.6/33.5/222 (06/07 1418) Na/K+/Phos/Mg/Ca: 140/3.5/--/1.7/-- (06/06 2213) Bun/Creat/Cl/CO2/Glucose: 16/0.95/103/28/94 (06/06 2213) Ptt/Pt/Inr: 39.9/23.3/2.1 (06/07 751-06/07 1418) Cxr pulm edema Discharge Planning Patient Assessment Admission Assessment Patient Assessment Completed: Initial Anticipated discharge disposition: Home with Infusion Reason for Admission: MSSA bacteremia and endocarditis of prosthetic AV valve Is the patient able to participate in the assessment?: Yes Information source: Patient, Review of Medical Record Information Source Name/Contact: Markus Nava Demographics Verified and Updated: Yes Has the patient been admitted to any hospital in the last 30 days?: No Advanced Care Planning Has the patient completed Advance Directives?: Not Completed Referral to Social Work for Advance Care Planning? : Patient Declines Legal Next of Kin Does the patient have a Guardian?: No Spouse: No (Thai Lin Significant Other [phone]) Adult Child(alberto), List All Adult Children: Yes Name and Contact information: Dominique Landon [phone] (patient is not and has one adult daughter) Would you like to add additional adult children?: No Reviewed and Updated in Demographics? : Yes Outpatient Providers Does patient have a primary care physician? : Yes When was the patient's last PCP visit?: < 30 days Does the patient follow any specialists?: Yes Reviewed and updated Care Team?: Yes Patient Care Team: Louie Burns DO as PCP - General (Family Medicine) Nidia Hernandez MD as PCP - Referring 1 (Gastroenterology) Environment/Caregivers Patient lives with: Alone Living Environment: House How many steps does the patient have to navigate to enter or inside the home? : 4 Does the patient have a first floor set-up with bed and bathroom?: No Patient Caregiving Responsibilities: Self Patient-identified caregiver/support network: Family, Friends Who does the patient identify as a teachable caregiver(s)?: Significant Other, Child(alberto) - Independent Services Does the patient use a home health or hospice agency?: No Current with dialysis?: No Does the patient use any community programs or services?: No Does patient use DME? : none Does the patient use oxygen?: No Does patient use medical supplies? : none Anticipated Changes Related to Illness/Injury? : No Initial ADLs Prior to Arrival What is the patient's baseline physical functioning prior to this acute illness?: independent What is the patient's baseline cognitive functioning prior to this acute illness?: independent Is the patient's baseline functioning changed by this acute illness? : No Concerns with patient being able to care for themselves at home? : No Are there therapy or specialists consults?: Yes Select consult type: PT, OT Does the patient's home require any home modifications for discharge? : No CM to recommend therapy or other consults? : No Medication Management Does the patient have prescription insurance coverage? : Yes Is the patient on Anticoagulation? : Yes Provider or Clinic that manages Anticoagulation?: [facility] Game Machine Inspector manages No Pharmacies Listed Agricultural Engineering Technologist Does the patient or workforce services representative express financial concerns? : No Employed?: Retired Coping/Stress Concerns about patient s coping and stress?: No Concerns about patient s caregiver s coping and stress?: Unable to Assess Values and Beliefs Cultural or samaritan practices that may impact discharge planning and/or medical care?: No Initial Discharge Planning Anticipated discharge disposition: Home with Infusion Transportation Available for Discharge: Private Vehicle, Family or Friend Anticipated DME: none Anticipated Services at Discharge: Outpatient follow up, Detention Patient Assessment Completed: Initial Expected Discharge Date: 06/12/2023 Discharge Planning Summary CM met with patient to complete initial assessment Anticipate discharge home with outpatient follow up vs home with home infusion and outpatient follow up Case Management Plan 1.Role of Clinical Slubber Runner explained while admitted to [facility] 2.PCP/Specialist/pharmacy information updated as needed 3. Patient demographic/address/emergency contact information verified 4.Clinical Slubber Runner will continue to follow with medical team to coordinate discharge planning. Radha KEN Clinical Slubber Runner [facility] Department of Pharmacy Admission Medication Reconciliation Note Patient: Markus Nava Room/Bed: 7032/A I have reviewed the patient's home medication list with the following sources Patient recall with prompting, Dispense Report, OARRs, and [facility] Review. I have also reviewed this list with the pharmacist. A call to the pharmacy was not needed because the information compiled from listed sources corroborates the patient/caregiver interview. I am recommending the following changes to the home medication list. These recommendations are considered preliminary until attestation of this note by a pharmacist. Added to Home Medications: None Deleted from Home Medications: None Edits to Home Medications: Lorazepam - Updated to pharmacy reported strength: 0.5 mg, previously listed as 1 mg. Other Comments: The patient's allergies have been reviewed with Patient. Added patient reported allergy: fentanyl; reaction: agitation, hallucinations Warfarin - Patient reports followed by [facility]. Patient has 1 mg and 5 mg tablets at home. Current patient reported directions are: Take 6.5 mg daily on Sun, Mon, , , Sun, and Sat. Take 8 mg on . Please feel free to contact me with any further questions. Name: Binu Chauhan Phone #: [phone] Date/Time: 06/07/2023 10:07 AM Time Spent: 25 minutes Associated attestation - Judson Parsons RPH - 06/07/2023 1:16 PM EST Department of Pharmacy Admission Medication Reconciliation Note Patient: Markus Nava Room/Bed: 7032/A I have reviewed the home medication list with the Drawing Tender. The home medication list status is: complete. A call to the pharmacy was not needed because the information compiled from listed sources corroborates the patient/caregiver interview. All changes to the home medication list have been updated in IHIS. Updated [facility] Med List: Prior to Admission Medications Prescriptions DULoxetine [address] Particles capsule DR Sig: Take 1 capsule by mouth daily. LORazepam 0.5 MG tablet Sig: Take 1 tablet by mouth every 6 hours as needed for Anxiety. Metoprolol 50 MG tab regular release Sig: Take 1 tablet by mouth 2 times daily. Warfarin 1 MG tablet Sig: Take 1.5 tablets by mouth daily. Take 6.5 mg daily on Sun, Mon, Tues, Thurs, Fri, and Sat. Take 8 mg on Weds. ferrous sulfate 325 (65 Fe) MG Tab DR tablet DR Sig: Take 1 tablet by mouth daily. melatonin capsule Sig: Take 1 capsule by mouth at bedtime. predniSONE 20 MG tablet Sig: Take 1 tablet by mouth daily. warfarin 5 MG tablet Sig: Take 1 tablet by mouth daily. Take 6.5 mg daily on Sun, Mon, Tues, Thurs, Fri, and Sat. Take 8 mg on Weds. Facility-Administered Medications: None Please feel free to contact me with any further questions. Name: Judson Parsons [facility] Phone #: [phone] Date/Time: 06/07/2023 1:16 PM Occupational Therapy Attempt Note 06/07/2023 OT Therapy Completed: Attempted Attempted Reason: Patient is not medically optimized to tolerate therapy program Karthik Downey OT Time In: 45 Time Out: 0745 Total Visit Time: 0 minutes Total Treatment Time (skilled, billable minutes): 0 minutes Physical Therapy Attempt Note 06/07/2023 PT Therapy Completed: Attempted Attempted Reason: Other (see comments) (Pending further medical work-up) PT will follow as medically appropriate. Ross Stone PT Time In: 731 Time Out: 0732 Total Visit Time: 0 minutes Total Treatment Time (skilled, billable minutes): 0 minutes documented in this encounter [facility] 06-19-2023 History of Present illness Narrative Final Discharge Planning and Transportation Final Discharge Planning Discharge Disposition: Home with Infusion Services at Discharge: Detention Selected Continued Care - Admitted Since 06/06/2023 Dialysis/Infusion Coordination complete. Service Provider Selected Services Address Phone Fax Patient Preferred [facility]fusion [facility] IV Therapy [address] [place] [address] [phone] -- Current Capacity last updated by Dominique Solorio RN on 03/28/2023 1518 Home IV ATBs Home Medical Care Coordination complete. 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 CM had conversation with patient/caregiver related to specialty care follow-up. Barriers identified: None Outpatient CM was not contacted related to barriers Sandra Lopez RN, BSN Clinical Slubber Runner Home Health Referral Educated Patient on Home Care and services available. Patient agreeable to Detention services with [facility] and [facility] for infusion pharmacy. Current Home DME: None Patient Demographics Name: Markus Nava Patient Demographics [address] [facility] [address] PCP Louie Burns Language Portuguese Rodent Exterminator Needed No (home) Cell Phone No relevant phone numbers on file. Emergency Contacts Extended Emergency Contact Information Primary Emergency Contact: Duartegregthai Relation: Significant Other Secondary Emergency Contact: jackeline landon Relation: Child Ordering Physician: Wiley Covington MD Following Physician:Louie Burns, DO Agreeable to Follow: Yes Date/Time of Call: 06/08/23 at 1630 Spoke with: Dunia Primary Diagnosis & Reason for Services: Acute bacterial endocarditis [I33.0] - Primary Hi-Tech (Labs, Wounds, Infusions etc.): Teachable Caregiver: Name:Thai Lin Relation to patient: Contact #:[phone] Is teachable available for SOC visit? Yes IV/TPN/Tube Feed: Infusion Company:[facility] Infectious Disease Physician:Dr. Kelvin Soliz Infusion/TF Orders:Cefazolin 6 gm every 24 hour over 24 hours Next Dose Due: continuous Line Type: single lumen PICC IV Method of Administration Planned: Elastomeric Labs: Type:Chem-6 (Including serum creatinine) without Glucose every Sunday - CBC w/diff every Sunday - Gentamicin trough (goal gentamicin trough is <1.0, a Gentamicin trough and Chem-6 need to be checked every every Sunday and for the first two weeks after being discharged from the hospital then every Sunday on a weekly basis) - Hepatic Function Panel every Sunday Frequency: Source Site: PICC Send Results To: fax to [phone], attention (ID Attending): Dr. Kelvin Soliz (ID Fellow): Dr. Asha Bundy General Report/ Additional Comments: Markus Nava is a 78 y.o. 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 Expected Discharge Date: 06/19/2023 NATAN Mills RN This PACC RN called Dede with [facility] at [phone] to let her know that patient is discharging today. DC documents uploaded to [employer] and faxed to [phone]. NATAN Mills RN Images from the original note were not included. [facility] Note: Bedside Delivery Documentation The following prescription(s) were tubed to the patient's bedside. Dolores Zaman Special[facility] ([place]) [phone] [facility] [phone] [facility] Bedside Delivery [phone] [facility] [phone] [facility] Bedside Delivery [phone] [facility] [phone] [facility] Bedside Delivery [phone] [place] [phone] [place] [phone] Markus is to get final dose of gentamicin tomorrow and then will be ready for discharge tomorrow. I updated [facility] and [facility] (via [facility]) of this plan. [facility] has the atb script; I uploaded PICC information. Gabriela Harding RN Clinical Slubber Runner Images from the original note were not included. [facility] Note: Non-Verbal Med Rec [facility] received the following discharge prescription(s): Total cost is $15.67. I have reviewed the Discharge Rx Reconciliation Report. The discharge prescription(s) will be delivered to the patient on 06/18/2023. Quentin Rodriguez RPh,PharmD Specialty ([place]) [phone] [facility] [phone] [facility] Bedside Delivery [phone] [facility] [phone] [facility] Bedside Delivery [phone] [facility] [phone] [facility] Bedside Delivery [phone] [place] [phone] [place] [phone] Hospital Medicine Progress Note Patient: Markus Nava, : 1945, Impression / Plan Markus Nava is a 78 y.o. 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 MSSA bacteremia and endocarditis of prosthetic AV valve Initially with septic shock at OSH, now resolved. Found to have MSSA bacteremia. Prosthetic AV vegetation confirmed on OSH FER. - Continue cefazolin IV for 6 weeks (EOT 08/02) and gentamicin for a 2 week course (EOT 06/19) - patient had a single lumen picc. Will keep him in house until tomorrow and end gentamicin after his dose tomorrow morning. - Serial monitoring of creatinine while on gentamicin - Plan for outpatient ID and OHS follow-up. Supratherapeutic INR - resolved Mechanical aortic valve present INR 3.8 on admission to OSH, 3.4 today per OSH records. INR 2.5 on admission here. - INR at goal. Stop heparin gtt today Atrial fibrillation CHADSVASC 3 (age, HTN). RVR at OSH, started on amiodarone. - Continue amiodarone 200 mg daily - Continue metoprolol 50mg BID - Telemetry - cont. coumadin as above History of GI bleed Diverticulitis s/p partial colectomy Suspected Crohn's disease History of diverticulitis s/p partial colectomy, but recently with GI bleed in Apr 2023. Colonoscopy with concern for Crohn's disease, discharged on prednisone 20 mg without taper - Reviewed discharge summary from this hospitalization today. Has been on prednisone 20 mg about 6 weeks already and does not have follow-up until August with GI - at this time, I think risk of continued immunosuppression is outweighed by potential benefit of scaling down prednisone to treat his current (life-threatening) infection - Decrease prednisone to 15 mg daily x 1 week (started 06/16). Then decrease by 5 mg per week until off. - Discussed PJP ppx with pharmacist and they did not feel strongly about continuing since pred dose decreasing - Encouraged Markus to call Dr. Perez's office (GI) and set up and earlier appointment. He secured an appt. For . Urethral stricture s/p dilation Urology consulted and dilation performed at OSH, brown removed prior to transfer. - Continue flomax, monitor for signs of retention Anxiety - Continue ativan 0.5 mg po BID (outpatient PCP prescribes and he has been on this for years) and duloxetine 60mg daily. Changed ativan to q12 hours to more closely approximate his schedule but would not to be surprised if he asks for nighttime dose early Basal Cell Carcinoma neck - wide excision or Mohs procedure will be done outpatient. Appreciate derm- evaluation. He prefers to follow-up closer to home. Complexity. Any conditions listed below are present on admission unless otherwise specified. DVT prophylaxis with heparin gtt Anticipated Disposition: home tomorrow if HHC can be arranged Code status is Full Code Interval History / Subjective Happy that his INR is therapeutic. We discussed going home tomorrow. He is unsure if his family members will be well enough to pick him up tomorrow. He's going to call them. Objective Temp: [97.9 F (36.6 C)-98.5 F (36.9 C)] 98.5 F (36.9 C) Pulse (Heart Rate): [68-70] 68 Resp Rate: [16-18] 18 BP: (103-155)/(53-68) 155/68 O2 Sat (%): [94 %-100 %] 94 % Physical Exam Gen: A, A, NAD ENT: MMM Resp: CTA bilat, normal effort Cardio: RRR, prosthetic valve click, normal S1, S2, 1+ b/l DADA GI: S/NT/ND, NABS Psych: Ox3, appropriate affect and cognition Skin: Right arm picc dressing clean and dry Data Review WBC/Hgb/Hct/Plts: --/--/--/270 (06/17 1258) Na/K+/Phos/Mg/Ca: 138/4.6/--/2.0/-- (06/18 608) Bun/Creat/Cl/CO2/Glucose: 20/1.03/102/28/-- (06/18 608) Ptt/Pt/Inr: 123.4/26.5/2.5 (06/18 608) Signed, Wiley Covington MD [facility] Medicine Progress Note Patient: Markus Nava, : 1945, Impression / Plan Markus Nava is a 78 y.o. 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 MSSA bacteremia and endocarditis of prosthetic AV valve Initially with septic shock at OSH, now resolved. Found to have MSSA bacteremia. Prosthetic AV vegetation confirmed on OSH FER. - Continue cefazolin IV for 6 weeks (EOT 08/02) and gentamicin for a 2 week course (EOT 06/19) - patient had a single lumen picc. I suspect he'll probably be in house until gent is completed anyway for INR purposes. - Serial monitoring of creatinine while on gentamycin Supratherapeutic INR - resolved Mechanical aortic valve present INR 3.8 on admission to OSH, 3.4 today per OSH records. INR 2.5 on admission here. - INR currently low. Goal 2.5 - Go back down to 6.5 mg tonight (8 mg Sunday only) Atrial fibrillation CHADSVASC 3 (age, HTN). RVR at OSH, started on amiodarone. - Continue amiodarone 200 mg daily - Continue metoprolol 50mg BID - Telemetry - cont. coumadin as above History of GI bleed Diverticulitis s/p partial colectomy Suspected Crohn's disease History of diverticulitis s/p partial colectomy, but recently with GI bleed in Apr 2023. Colonoscopy with concern for Crohn's disease, discharged on prednisone 20 mg without taper - Reviewed discharge summary from this hospitalization today. Has been on prednisone 20 mg about 6 weeks already and does not have follow-up until August with GI - at this time, I think risk of continued immunosuppression is outweighed by potential benefit of scaling down prednisone to treat his current (life-threatening) infection - Decrease prednisone to 15 mg daily x 1 week (started 06/16). Then decrease by 5 mg per week until off. - Discussed PJP ppx with pharmacist and they did not feel strongly about continuing since pred dose decreasing - Encouraged Markus to call Dr. Perez's office (GI) and set up and earlier appointment. He secured an appt. For . Urethral stricture s/p dilation Urology consulted and dilation performed at OSH, brown removed prior to transfer. - Continue flomax, monitor for signs of retention Anxiety - Continue ativan 0.5 mg po BID (outpatient PCP prescribes and he has been on this for years) and duloxetine 60mg daily. Changed ativan to q12 hours to more closely approximate his schedule but would not to be surprised if he asks for nighttime dose early Leukocytosis - Likely due to known infection as above, continue to monitor Basal Cell Carcinoma neck - wide excision or Mohs procedure will be done outpatient. Appreciate derm- evaluation Complexity. Any conditions listed below are present on admission unless otherwise specified. DVT prophylaxis with heparin gtt Anticipated Disposition: home when INR therapeutic Code status is Full Code Interval History / Subjective Feeling well. States he would not know he was sick if he weren't in the hospital. 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 Objective Temp: [97.6 F (36.4 C)-98.5 F (36.9 C)] 97.6 F (36.4 C) Pulse (Heart Rate): [64-72] 65 Resp Rate: [16-18] 16 BP: (113-137)/(58-70) 130/65 O2 Sat (%): [96 %-99 %] 99 % Weight: [96.5 kg (212 lb 10.1 oz)] 96.5 kg (212 lb 10.1 oz) Physical Exam Gen: A, A, NAD ENT: MMM Resp: CTA bilat, normal effort Cardio: RRR, prosthetic valve click, normal S1, S2, 1+ b/l DADA GI: S/NT/ND, NABS Psych: Ox3, appropriate affect and cognition Skin: Right arm picc dressing clean and dry Data Review Bun/Creat/Cl/CO2/Glucose: --/1.04/--/--/-- (06/17 327) Ptt/Pt/Inr: 91.6/20.0/1.7 (06/17 327) Signed, Wiley Covington MD [facility] Medicine Progress Note Patient: Markus Nava, : 1945, Impression / Plan Markus Nava is a 78 y.o. 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 MSSA bacteremia and endocarditis of prosthetic AV valve Initially with septic shock at OSH, now resolved. Found to have MSSA bacteremia. Prosthetic AV vegetation confirmed on OSH FER. - Continue cefazolin IV for 6 weeks (EOT 08/02) and gentamicin for a 2 week course (EOT 06/19) - patient had a single lumen picc. I suspect he'll probably be in house until gent is completed anyway for INR purposes. - Serial monitoring of creatinine while on gentamycin Supratherapeutic INR - resolved Mechanical aortic valve present INR 3.8 on admission to OSH, 3.4 today per OSH records. INR 2.5 on admission here. - INR currently low. Goal 2.5 - Increase coumadin to 8 mg tonight (takes this higher dose once a week) Atrial fibrillation CHADSVASC 3 (age, HTN). RVR at OSH, started on amiodarone. - Continue amiodarone 200 mg daily - Continue metoprolol 50mg BID - Telemetry - resuming coumadin as above History of GI bleed Diverticulitis s/p partial colectomy Suspected Crohn's disease History of diverticulitis s/p partial colectomy, but recently with GI bleed in Apr 2023. Colonoscopy with concern for Crohn's disease, discharged on prednisone 20 mg without taper - Reviewed discharge summary from this hospitalization today. Has been on prednisone 20 mg about 6 weeks already and does not have follow-up until August with GI - at this time, I think risk of continued immunosuppression is outweighed by potential benefit of scaling down prednisone to treat his current (life-threatening) infection - Decrease prednisone to 15 mg daily x 1 week (started 06/16). Then decrease by 5 mg per week until off. - Discussed PJP ppx with pharmacist and they did not feel strongly about continuing since pred dose decreasing - Encouraged Markus to call Dr. Perez's office (GI) and set up and earlier appointment. He secured an appt. For . Urethral stricture s/p dilation Urology consulted and dilation performed at OSH, brown removed prior to transfer. - Continue flomax, monitor for signs of retention Anxiety - Continue ativan 0.5 mg po BID (outpatient PCP prescribes and he has been on this for years) and duloxetine 60mg daily. Changed ativan to q12 hours to more closely approximate his schedule but would not to be surprised if he asks for nighttime dose early Leukocytosis - Likely due to known infection as above, continue to monitor Basal Cell Carcinoma neck - wide excision or Mohs procedure will be done outpatient. Appreciate derm- evaluation Complexity. Any conditions listed below are present on admission unless otherwise specified. DVT prophylaxis with heparin gtt Anticipated Disposition: home when INR therapeutic Code status is Full Code Interval History / Subjective Expresses a lot of anxiety about all his medical problems. Frequently requesting ativan at night early. Having some oozing from his picc line. Redressed by the picc team today. Objective Temp: [98.1 F (36.7 C)-98.5 F (36.9 C)] 98.3 F (36.8 C) Pulse (Heart Rate): [63-68] 68 Resp Rate: [15-16] 16 BP: (120-173)/(61-71) 120/70 O2 Sat (%): [90 %-100 %] 96 % Weight: [97.7 kg (215 lb 6.2 oz)] 97.7 kg (215 lb 6.2 oz) Physical Exam Gen: A, A, NAD ENT: MMM Resp: CTA bilat, normal effort Cardio: RRR, prosthetic valve click, normal S1, S2, 1+ b/l DADA GI: S/NT/ND, NABS Psych: Ox3, appropriate affect and cognition Skin: Right arm pick with some clotted blood noted around it Data Review WBC/Hgb/Hct/Plts: --/--/--/269 (06/15 1552) Ptt/Pt/Inr: 116.6/17.2/1.4 (06/16 0636) Signed, Wiley Covington MD Images from the original note were not included. CARDIOLOGY CONSULT PROGRESS NOTE Cardiology consult 06/06/2023 for 78y M with hx of aortic valve replacement now with MSSA bacteremia and AV endocarditis HPI I saw Mr. Markus Nava in follow-up on 06/15/2023. He is a 78 y.o. male with a history of streptococcal endocarditis of AV s/p AVR (1996) c/b graft dilation and aortic insufficiency s/p Bentall procedure (2001), AF, diverticulitis s/p partial colectomy with c/f Crohn's, anxiety and depression who initially presented to an OSH 06/02/23 with fevers and chills, found to have MSSA bacteremia and septic shock c/b AF with RVR, with FER revealing a vegetation on the aortic valve prompting tx to [facility] on 06/06/2023. 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 FER 06/05/23 showed AV freely mobile mass c/w vegetation measuring 1.1cm x 0.7cm. Blood cultures NTD since 06/08/22, last positive on 06/06/22 -CTS Dr. Sabillon following, recommend completing AB course and follow-up echo in 4-6 weeks with outpatient CTS follow-up -ABs per ID; -consider daily 12-lead ECGs and continuous telemetry to monitor for high degree AV block -please set him up with his outpatient pediatric anesthesiologist in [place] to be seen within 1 month of discharge History of AVE s/p mechanical AVR: history of AVE 2/2 strep s/p AVR and reconstruction of RVOT using 29mm pulmonary homograft c/b graft dilation and AI s/p modified Bentall procedure with AVR and aortic root replacement using 25mm St. Shane and hemashield composite graft in 2001. -will need systemic AC with warfarin and heparin gtt bridge until goal INR 2.5-3.5 given mechanical AV with risk factors (AF). Would monitor closely for any evidence of septic emboli to brain given c/f hemorrhagic conversion while on AC. Acute HFmrEF: TTE 06/02/23 showed LVEF 40-45% and FER 06/05/23 showed LVEF 50% in setting of sepsis and AVE and mild to moderate MR. -net negative 71 ml per 24 hours, net negative 5.4 liters this admit -remains with lower extremity edema -consider IV lasix as warranted. -GDMT: would transition metoprolol to Toprol XL 50 mg BID once closer to discharge, will plan on folding in losartan 12.5 mg daily per BP tolerance -continue strict I/Os, daily weight, optimize lytes to keep K>4 and Mg>2 Paroxysmal atrial fibrillation: known history since 2001. RVR noted at OSH in the setting of MSSA bacteremia, septic shock. Initiated on amio gtt and transitioned to PO amio. -currently in rate-controlled AF -[id number] is 3, continue systemic AC with warfarin and heparin gtt bridge. Goal INR 2.5-3.5 d/t mechanical AV. -ongoing supportive care of underlying illness, volume status -maintain electrolytes for K>4, Mg>2 -continue telemetry Other hospital problems: Basal cell carcinoma: found on right neck; diagnosed by derm this admission Supratherapeutic INR: resolved; on heparin gtt Diverticulitis s/p partial colectomy: ?Crohn's disease on colonoscopy, on prednisone and PPI. Follows with outpatient GI Urethral stricture: s/p dilation by urology at OSH, on flomax Anxiety/depression: on ativan and duloxetine History of GIB: 04/2023 Chronic ROGER: holding home iron d/t acute infection INTERVAL HISTORY/REVIEW OF SYSTEMS Over the last day, he had no acute events. He denies chest pain, shortness of breath, lightheadedness and dizziness. Remains with lower extremity edema although feels as if this is improving. PHYSICAL EXAM BP 117/58 (BP Location: Left arm, BP Position: Sitting) Pulse 59 Temp 97.9 F (36.6 C) (Oral) Resp 14 Ht 1.829 m (6') Comment: estimated Wt 97.5 kg (214 lb 14.4 oz) SpO2 94% BMI 29.15 kg/m Smoking Status Never Constitutional: Awake and in no distress. Chest: Respiratory effort is unlabored. Lungs are clear without rales, rhonchi or wheezes. Cardiovascular: No JVD appreciated. Irregularly irregular rate and rhythm; S1 normal, S2 normal. Exam reveals no gallop, no friction rub. No murmur heard. Valve click present. Abdomen: Soft, non-tender, non-distended. +BS. Extremities: 2+ BLE pitting edema. No stasis dermatitis. Radial, dorsalis pedis and posterior tibial pulses are 2+ bilaterally. Neurological: Alert and oriented to person, place and time. Skin: Warm, dry. No cyanosis. Nails show no clubbing. CARDIOVASCULAR IMAGING/DATA Cardiac Catheterization 2002 ([facility]): - Left Coronary Artery: no angiographically definable disease - Right Coronary Artery: no angiographically definable disease {dominant) TTE 02/03/1997: - LVEF 65% - Large AV vegetations; severe AI - No definite MV vegetation seen (mild focal prolapse of a scallop of the valve without significant leak.) 24 hour telemetry (personally reviewed): AF 60-70's. ADDITIONAL DATA REVIEWED Intake/Output Summary (Last 24 hours) at 06/15/2023 1545 Last data filed at 06/15/2023 1357 Gross per 24 hour Intake 2160.26 ml Output 3225 ml Net -1064.74 ml Temp: [97.9 F (36.6 C)-98.6 F (37 C)] 97.9 F (36.6 C) Pulse (Heart Rate): [59-72] 59 Resp Rate: [14-16] 14 BP: (113-154)/(55-70) 117/58 O2 Sat (%): [94 %-100 %] 94 % Oxygen Therapy O2 Sat (%): 94 % O2 Device: room air Body mass index is 29.15 kg/m . LABS Bun/Creat/Cl/CO2/Glucose: 20/1.03/103/28/93 (06/15 314) Na/K+/Phos/Mg/Ca: 139/4.4/--/1.9/-- (06/15 314) No results found for: BNP Lab Results Component Value Date CHOLESTEROL 183 08/28/2001 CHOLESTEROL 183 08/28/2001 TRIG 121 08/28/2001 HDL 35 (L) 08/28/2001 CURRENT MEDICATIONS: ceFAZolin (ANCEF) 3 g in Sodium chloride 0.9%, with overfill 290 mL IV infusion 3 g Intravenous Q12HNS DULoxetine 60 mg Oral Daily gentamicin 60 mg Intravenous Q12HNS LORazepam 0.5 mg Oral Q12H Metoprolol 50 mg Oral BID Pantoprazole 40 mg Oral Daily [START ON 06/16/2023] predniSONE 15 mg Oral Daily Tamsulosin HCl 0.4 mg Oral Daily [Held by provider] Warfarin 6.5 mg Oral Daily early evening Warfarin 6.5 mg Oral Daily early evening heparin 14 Units/kg/hr (06/15/23 1326) [id number] Score for Atrial Fibrillation Stroke Risk Age in Years: 75+ Sex: Male CHF History: Yes Hypertension History: No Stroke/TIA/Thromboembolism History: No Vascular Disease History: No Diabetes History: No [id number] Score: 3 Complexity. Thank you for this consult. Please call with questions. We will sign off at this time. [facility] Consult Service Phone: [phone] [facility] Medicine Progress Note Patient: Markus Nava, : 1945, Impression / Plan Markus Nava is a 78 y.o. 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 MSSA bacteremia and endocarditis of prosthetic AV valve Initially with septic shock at OSH, now resolved. Found to have MSSA bacteremia. Prosthetic AV vegetation confirmed on OSH FER. - Continue cefazolin IV for 6 weeks (EOT 08/02) and gentamicin for a 2 week course (EOT 06/19) - patient had a single lumen picc. I suspect he'll probably be in house until gent is completed anyway for INR purposes. Supratherapeutic INR - resolved Mechanical aortic valve present INR 3.8 on admission to OSH, 3.4 today per OSH records. INR 2.5 on admission here. - INR currently low. Goal 2.5 - Resume coumadin but increase to home dosing of 6.5 mg today in light of stopping bactrim. Atrial fibrillation CHADSVASC 3 (age, HTN). RVR at OSH, started on amiodarone. - Continue amiodarone 200 mg daily - Continue metoprolol 50mg BID - Telemetry - resuming coumadin as above History of GI bleed Diverticulitis s/p partial colectomy Suspected Crohn's disease History of diverticulitis s/p partial colectomy, but recently with GI bleed in Apr 2023. Colonoscopy with concern for Crohn's disease, discharged on prednisone 20 mg without taper - Reviewed discharge summary from this hospitalization today. Has been on prednisone 20 mg about 6 weeks already and does not have follow-up until August with GI - at this time, I think risk of continued immunosuppression is outweighed by potential benefit of scaling down prednisone to treat his current (life-threatening) infection - Decrease prednisone to 15 mg daily x 1 week. Then decreased by 5 mg per week until off. - Discussed PJP ppx with pharmacist and they did not feel strongly about continuing since pred dose decreasing - Encouraged Markus to call Dr. Perez's office (GI) and set up and earlier appointment Urethral stricture s/p dilation Urology consulted and dilation performed at OSH, brown removed prior to transfer. - Continue flomax, monitor for signs of retention Anxiety - Continue ativan 0.5 mg po BID (outpatient PCP prescribes and he has been on this for years) and duloxetine 60mg daily. Changed ativan to q12 hours to more closely approximate his schedule Leukocytosis - Likely due to known infection as above, continue to monitor Basal Cell Carcinoma - wide excision or Mohs procedure will be done outpatient. Appreciate derm- evaluation Complexity. Any conditions listed below are present on admission unless otherwise specified. DVT prophylaxis with heparin gtt Anticipated Disposition: home Code status is Full Code Interval History / Subjective Discussed prednisone dosing and follow-up after I reviewed last GI notes. States he missed his capsule endoscopy and GI follow-up on 06/11 as he was hospitalized at [facility]. Does not have another follow-up until August. Objective Temp: [97.9 F (36.6 C)-98.6 F (37 C)] 97.9 F (36.6 C) Pulse (Heart Rate): [59-72] 59 Resp Rate: [14-16] 14 BP: (113-154)/(55-70) 117/58 O2 Sat (%): [94 %-100 %] 94 % Physical Exam Gen: A, A, NAD ENT: MMM Resp: CTA bilat, normal effort Cardio: RRR, prosthetic valve click, normal S1, S2, 1+ b/l DADA GI: S/NT/ND, NABS Psych: Ox3, appropriate affect and cognition Data Review Na/K+/Phos/Mg/Ca: 139/4.4/--/1.9/-- (06/15 314) Bun/Creat/Cl/CO2/Glucose: 20/1.03/103/28/93 (06/15 314) Ptt/Pt/Inr: 82.6/15.5/1.2 (06/15 314) Signed, Wiley Covington MD Hospital Medicine Progress Note Patient: Markus Nava, : 1945, Impression / Plan Markus Nava is a 78 y.o. 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 MSSA bacteremia and endocarditis of prosthetic AV valve Initially with septic shock at OSH, now resolved. Found to have MSSA bacteremia. Prosthetic AV vegetation confirmed on OSH FER. - Continue cefazolin 3g q12h over 12 hours for 6 weeks (EOT 08/02) and gentamicin 80mg q8h for a 2 week course (EOT 06/19) - patient had a single lumen picc placed today. Given this, may complicate gent infusion if he's ready to go before 06/19 Supratherapeutic INR - resolved Mechanical aortic valve present INR 3.8 on admission to OSH, 3.4 today per OSH records. INR 2.5 on admission here. - INR currently low. Goal 2.5 - Resume coumadin at 5 mg today given I will also be starting Bactrim. Will need to stay in the hospital on heparin gtt for bridging anticoagulation until INR is therapeutic. Atrial fibrillation CHADSVASC 3 (age, HTN). RVR at OSH, started on amiodarone. - Continue amiodarone 200 mg daily - Continue metoprolol 50mg BID - Telemetry - resuming coumadin as above History of GI bleed Diverticulitis s/p partial colectomy Suspected Crohn's disease History of diverticulitis s/p partial colectomy, but recently with GI bleed in Apr 2023. Colonoscopy with concern for Crohn's disease, discharged on steroid taper. - Continue pantoprazole 40 mg daily - Continue prednisone 20mg daily- per patient, he thinks he's been on this well more than a month. Unclear what the plan was for taper but, at this point, needs PJP ppx. Start Bactrim. - Outpatient follow up with GI Urethral stricture s/p dilation Urology consulted and dilation performed at OSH, brown removed prior to transfer. - Continue flomax, monitor for signs of retention Anxiety - Continue ativan 0.5 mg po BID (outpatient PCP prescribes and he has been on this for years) and duloxetine 60mg daily Leukocytosis - Likely due to known infection as above, continue to monitor Basal Cell Carcinoma - wide excision or Mohs procedure will be done outpatient. Appreciate derm- evaluation Complexity. Any conditions listed below are present on admission unless otherwise specified. DVT prophylaxis with heparin gtt Anticipated Disposition: home Code status is Full Code Interval History / Subjective No events over night, afebrile Objective Temp: [98.3 F (36.8 C)-98.7 F (37.1 C)] 98.6 F (37 C) Pulse (Heart Rate): [63-71] 63 Resp Rate: [14-18] 18 BP: (107-136)/(53-63) 107/53 O2 Sat (%): [95 %-98 %] 97 % Physical Exam Gen: A, A, NAD Neck : pearly lesion on the right neck , right neck line in place ENT: MMM Resp: CTA bilat, normal effort Cardio: RRR, normal S1, S2, No DADA GI: S/NT/ND, NABS Psych: Ox3, appropriate affect and cognition Data Review Na/K+/Phos/Mg/Ca: 138/4.2/--/1.9/-- (06/14 357) Bun/Creat/Cl/CO2/Glucose: 22/1.11/104/26/132 (06/14 357) Ptt/Pt/Inr: 85.3/16.3/1.3 (06/14 357) Cxr pulm edema Discharge Plan Expected Discharge Date: 06/18/2023 Referred Level of Care: Home Health/Home Infusion Barriers: INR hold Current Referrals and Status--Accepted/Reserved [facility] [address] [address] [place] [address] CM updated in Rounds. Patient discharge anticipated early next week- INR hold. Patient has home health/home infusion arranged by [facility] -- only accepting agency has nursing available for SOC early next week (no weekend availability). CM contacted patient's Pin Game Machine Inspector Office-Dr Maldonado with [facility] to verify ability to continue managing coumadin/INR when discharged. CM will continue follow up and assist with discharge planning. Radha KEN Clinical Slubber Runner [facility] Images from the original note were not included. CARDIOLOGY CONSULT PROGRESS NOTE Cardiology consult 06/06/2023 for 78y M with hx of aortic valve replacement now with MSSA bacteremia and AV endocarditis HPI I saw Mr. Markus Nava in follow-up on 06/14/2023. He is a 78 y.o. male with a history of streptococcal endocarditis of AV s/p AVR (1996) c/b graft dilation and aortic insufficiency s/p Bentall procedure (2001), AF, diverticulitis s/p partial colectomy with c/f Crohn's, anxiety and depression who initially presented to an OSH 06/02/23 with fevers and chills, found to have MSSA bacteremia and septic shock c/b AF with RVR, with FER revealing a vegetation on the aortic valve prompting tx to [facility] on 06/06/2023. 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 FER 06/05/23 showed AV freely mobile mass c/w vegetation measuring 1.1cm x 0.7cm. Blood cultures NTD since 06/08/22, last positive on 06/06/22 -CTS Dr. Sabillon following, recommend completing AB course and follow-up echo in 4-6 weeks with outpatient CTS follow-up -ABs per ID; PICC placed today -consider daily 12-lead ECGs and continuous telemetry to monitor for high degree AV block -please set him up with his outpatient pediatric anesthesiologist in [place] to be seen within 1 month of discharge History of AVE s/p mechanical AVR: history of AVE 2/2 strep s/p AVR and reconstruction of RVOT using 29mm pulmonary homograft c/b graft dilation and AI s/p modified Bentall procedure with AVR and aortic root replacement using 25mm St. Shane and hemashield composite graft in 2001. -will need systemic AC with warfarin and heparin gtt bridge until goal INR 2.5-3.5 given mechanical AV with risk factors (AF). Would monitor closely for any evidence of septic emboli to brain given c/f hemorrhagic conversion while on AC. Acute HFmrEF: TTE 06/02/23 showed LVEF 40-45% and FER 06/05/23 showed LVEF 50% in setting of sepsis and AVE and mild to moderate MR. -net negative 71 ml per 24 hours, net negative 5.4 liters this admit -remains with lower extremity edema -can consider low dose IV lasix 20 mg x 1 today -GDMT: would transition metoprolol to Toprol XL 50 mg BID once closer to discharge, will plan on folding in losartan 12.5 mg daily per BP tolerance -continue strict I/Os, daily weight, optimize lytes to keep K>4 and Mg>2 Paroxysmal atrial fibrillation: known history since 2001. RVR noted at OSH in the setting of MSSA bacteremia, septic shock. Initiated on amio gtt and transitioned to PO amio. -currently in rate-controlled AF -[id number] is 3, continue systemic AC with warfarin and heparin gtt bridge. Goal INR 2.5-3.5 d/t mechanical AV. -ongoing supportive care of underlying illness, volume status -maintain electrolytes for K>4, Mg>2 -continue telemetry Other hospital problems: Basal cell carcinoma: found on right neck; diagnosed by derm this admission Supratherapeutic INR: resolved; on heparin gtt Diverticulitis s/p partial colectomy: ?Crohn's disease on colonoscopy, on prednisone and PPI. Follows with outpatient GI Urethral stricture: s/p dilation by urology at OSH, on flomax Anxiety/depression: on ativan and duloxetine History of GIB: 04/2023 Chronic ROGER: holding home iron d/t acute infection INTERVAL HISTORY/REVIEW OF SYSTEMS Over the last day, he had no acute events. He denies chest pain, shortness of breath, lightheadedness and dizziness. He reports lower extremity swelling although feels as if this is improving. PHYSICAL EXAM BP 107/53 (BP Location: Left arm, BP Position: Sitting) Pulse 63 Temp 98.6 F (37 C) (Oral) Resp 18 Ht 1.829 m (6') Comment: estimated Wt 97.5 kg (214 lb 14.4 oz) SpO2 97% BMI 29.15 kg/m Smoking Status Never Constitutional: Awake and in no distress. Chest: Respiratory effort is unlabored. Lungs are clear without rales, rhonchi or wheezes. Cardiovascular: No JVD appreciated. Irregularly irregular rate and rhythm; S1 normal, S2 normal. Exam reveals no gallop, no friction rub. No murmur heard. Valve click present. Abdomen: Soft, non-tender, non-distended. +BS. Extremities: 2+ BLE pitting edema. No stasis dermatitis. Radial, dorsalis pedis and posterior tibial pulses are 2+ bilaterally. Neurological: Alert and oriented to person, place and time. Skin: Warm, dry. No cyanosis. Nails show no clubbing. CARDIOVASCULAR IMAGING/DATA Cardiac Catheterization 2001 ([facility]): - Left Coronary Artery: no angiographically definable disease - Right Coronary Artery: no angiographically definable disease {dominant) TTE 02/03/1997: - LVEF 65% - Large AV vegetations; severe AI - No definite MV vegetation seen (mild focal prolapse of a scallop of the valve without significant leak.) 24 hour telemetry (personally reviewed): AF 60-70's. ADDITIONAL DATA REVIEWED Intake/Output Summary (Last 24 hours) at 06/14/2023 1432 Last data filed at 06/14/2023 1314 Gross per 24 hour Intake 2063.79 ml Output 1750 ml Net 313.79 ml Temp: [98.3 F (36.8 C)-98.7 F (37.1 C)] 98.6 F (37 C) Pulse (Heart Rate): [63-75] 63 Resp Rate: [14-18] 18 BP: (105-136)/(51-63) 107/53 O2 Sat (%): [95 %-98 %] 97 % Oxygen Therapy O2 Sat (%): 97 % O2 Device: room air Body mass index is 29.15 kg/m . LABS Bun/Creat/Cl/CO2/Glucose: 22/1.11/104/26/132 (06/14 357) Na/K+/Phos/Mg/Ca: 138/4.2/--/1.9/-- (06/14 357) No results found for: BNP Lab Results Component Value Date CHOLESTEROL 183 08/28/2001 CHOLESTEROL 183 08/28/2001 TRIG 121 08/28/2001 HDL 35 (L) 08/28/2001 CURRENT MEDICATIONS: ceFAZolin (ANCEF) 3 g in Sodium chloride 0.9%, with overfill 290 mL IV infusion 3 g Intravenous Q12HNS DULoxetine 60 mg Oral Daily gentamicin 60 mg Intravenous Q12HNS Metoprolol 50 mg Oral BID Pantoprazole 40 mg Oral Daily predniSONE 20 mg Oral Daily Tamsulosin HCl 0.4 mg Oral Daily [Held by provider] Warfarin 6.5 mg Oral Daily early evening Warfarin 7 mg Oral Daily early evening heparin 14 Units/kg/hr (06/14/23 1314) [id number] Score for Atrial Fibrillation Stroke Risk Age in Years: 75+ Sex: Male CHF History: Yes Hypertension History: No Stroke/TIA/Thromboembolism History: No Vascular Disease History: No Diabetes History: No [id number] Score: 3 Complexity. Thank you for this consult. Please call with questions. We will continue to follow along. [facility] Consult Service Phone: [phone] Department of Pharmacy Pharmacokinetics Progress Note Patient: Markus [facility] Assessment and Plan: Based upon drug level assessment and interpretation (steady state), no changes to the gentamicin dose or dosing interval are indicated at this time. A pharmacist will continue to follow and order drug levels and adjust dosing as clinically appropriate. Gentamicin Regimen at Time of Level: Gentamicin 60 mg IV every 12 hours Desired Therapeutic Trough Concentration: <1 g/mL Last Doses Administered: Dose: Date: Time: 60 mg 06/13/23 08 Gentamicin Levels: 0.6 g/mL drawn at 2036 on 06/13/23 (drawn 12 hours after previous dose) Most Recent Labs: WBC Count Date Value Ref Range Status 06/08/2023 15.06 (H) 3.73 - 10.10 K/uL Final BUN Date Value Ref Range Status 06/13/2023 21 7 - 25 mg/dL Final Creatinine Date Value Ref Range Status 06/13/2023 1.06 0.70 - 1.30 mg/dL Final I/O last 3 completed shifts: In: 2144.3 [P.O.:1120; I.V.:168.6; IV Piggyback:855.7] Out: 1250 [Urine:1250] Estimated Creatinine Clearance: 70 mL/min (by C-G formula based on SCr of 1.06 mg/dL). Please feel free to contact me with any further questions. Name: Rigoberto Landon RPH Date/Time: 06/13/2023 10:07 PM Outpatient Parenteral Antibiotic Therapy (OPAT): For patients who will be discharged on parenteral (IV) antibiotic therapy, please utilize the OPAT discharge orderset. For patients who are on oral antibiotic therapy, utilization of this orderset is not necessary. Diagnosis: Cardiac Bacteremia MSSA bacteremia with prosthetic/mechanical AV endocarditis FER (06/05/2023) at [facility] with 1.1cm x 0.7cm mobile vegetation on subaortic valvular lesion without surgical candidacy upon transfer to [facility]. History of previous Streptococcal [place] AV endocarditis requiring Ross procedure (1996) complicated by Graft dilation and AI requiring Bentall procedure (2001) Antibiotic(s) with dose: The dosing of these antibiotics is based on today's PK/PD calculations and is subject to change. Please evaluate the patient's medication list and carefully verify their dosing, and infusion rate prior to discharge. Do not hesitate to call the on-call ID Team with any questions. - Cefazolin 6 gm every 24 hour over 24 hours - Gentamicin 60 mg every 12 hour as an intermittent infusion Refer to pharmacy dosing for Gentamicin on day of discharge and ensure stable dosing prior to discharge. Duration of Therapy: Total Duration of therapy: 8 weeks Cefazolin - Start Date: 06/08/2023; Stop Date: 08/03/2023 Gentamicin - Start Date: 06/06/2023; Stop Date: 06/19/2023 Does Patient Need Oral Antibiotic Therapy at the End of Parenteral Therapy: Yes, describe: Cephalexin 1g TID OPAT ID Providers: (ID Attending): Dr. Kelvin Soliz (ID Fellow): Dr. Asha Bundy Labs: Please have the [facility] or [facility] obtain the following labs and fax to [phone], attention (ID Attending): Dr. Kelvin Soliz (ID Fellow): Dr. Asha Bundy - Chem-6 (Including serum creatinine) without Glucose every Sunday - CBC w/diff every Sunday - Gentamicin trough (goal gentamicin trough is <1.0, a Gentamicin trough and Chem-6 need to be checked every every Sunday and for the first two weeks after being discharged from the hospital then every Sunday on a weekly basis) - Hepatic Function Panel every Sunday Imaging: Yes: Prior to discharge, the patient should have FER schedule within 7-10 days of completion of IV antibiotic therapy and prior to ID follow-up visit. Follow-up: Yes - patient should follow-up in the ID Clinic (Please ensure patient is enrolled in [facility] prior to discharge) If the patient is being discharged to a [facility] ([facility]), we will defer ID Care to the Infectious Disease Providers at the [facility] facility. Please instruct the facility that if the patient requires ID Follow-up after discharge, then they should call our office to arrange for an appointment. Central Access: Can Central Access be removed at the end of therapy: Yes Additional notes: Refer to pharmacy dosing for Gentamicin on day of discharge and ensure stable dosing prior to discharge. Follow-up is scheduled with Asha Bundy MD on 08/02/2023 at 10:00AM. Asha Bunyd MD [facility] Medicine Progress Note Patient: Markus Nava, : 1945, Impression / Plan Markus Nava is a 78 y.o. 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 MSSA bacteremia and endocarditis of prosthetic AV valve Initially with septic shock at OSH, now resolved. Found to have MSSA bacteremia. Prosthetic AV vegetation confirmed on OSH FER. - Continue cefazolin 3g q12h over 12 hours for 6 weeks and gentamicin 80mg q8h for a 2 week course. Per OSH records, rifampin was also considered but concerns for drug interaction with amiodarone and not yet started. ID said no rifampin needed at this time as well. - Consult ID gentamicin and cefazolin Blood cultures negative from 06/08, last positive 06/06, culture negative to date 06/11 -Dc Internal jugular line and monitor culture results per ID recs, then place picc and get opat. Per 06/11 recs - Consult cardiology and cardiothoracic surgery - Follow up OSH Bcx to ensure clearance of bacteremia Supratherapeutic INR - resolved Mechanical aortic valve present INR 3.8 on admission to OSH, 3.4 today per OSH records. INR 2.5 on admission here. Restart warfarin after PICC Is placed and right internal jugular catheter is removed. Continue with heparin gtt Atrial fibrillation CHADSVASC 3 (age, HTN). RVR at OSH, started on amiodarone. - Continue amiodarone 200 mg daily - Continue metoprolol 50mg BID - Telemetry - Cardiology consult as above JEFF Hold diuresis today, give x1 dose lasix 20mg IV tomorrow. History of GI bleed Diverticulitis s/p partial colectomy Suspected Crohn's disease History of diverticulitis s/p partial colectomy, but recently with GI bleed in Apr 2023. Colonoscopy with concern for Crohn's disease, discharged on steroid taper. - Continue pantoprazole 40 mg daily - Continue prednisone 20mg daily- claify with GI the length of therapy, consider pjp ppx - Outpatient follow up with GI Urethral stricture s/p dilation Urology consulted and dilation performed at OSH, brown removed prior to transfer. - Continue flomax, monitor for signs of retention Anxiety - Continue ativan 0.5 mg po BID prn and duloxetine 60mg daily Leukocytosis - Likely due to known infection as above, continue to monitor Basal Cell Carcinoma - wide excision or Mohs procedure will be done outpatient. Appreciate derm- evaluation DADA Likely from continuous Abx infusions. -5L for the last 24 hours with bid lasix - lasix dose again on 06/12 if cr ok- cr trended upward Complexity. Any conditions listed below are present on admission unless otherwise specified. .Chronic Iron Deficiency Anemia - hold home iron supplementation in setting of acute infection Complexity. Any conditions listed below are present on admission unless otherwise specified. . DVT prophylaxis with heparin gtt, add warfarin once picc placed. Anticipated Disposition: home Code status is Full Code Interval History / Subjective No events over night, afebrile Objective Temp: [97.9 F (36.6 C)-98.8 F (37.1 C)] 98.4 F (36.9 C) Pulse (Heart Rate): [68-75] 75 Resp Rate: [16-20] 16 BP: (105-134)/(51-81) 105/51 O2 Sat (%): [96 %-100 %] 96 % Physical Exam Gen: A, A, NAD Neck : pearly lesion on the right neck , right neck line in place ENT: MMM Resp: CTA bilat, normal effort Cardio: RRR, normal S1, S2, No DADA GI: S/NT/ND, NABS Psych: Ox3, appropriate affect and cognition Data Review WBC/Hgb/Hct/Plts: --/--/--/278 (06/13 1401) Na/K+/Phos/Mg/Ca: 138/4.2/--/2.0/-- (06/13 326) Bun/Creat/Cl/CO2/Glucose: 21/1.06/104/26/95 (06/13 326) Ptt/Pt/Inr: 53.4/17.3/1.4 (06/13 326-06/13 1401) Cxr pulm edema S/w W[facility] who informed me that if patient discharges Sunday they don't have weekend RN coverage. Hospitalist and CM notified in morning rounds. Will attempt to DC 06/14 instead of 06/15 if at all possible. NATAN Mills RN Images from the original note were not included. INFECTIOUS DISEASE FOLLOW-UP NOTE IDENTIFYING INFORMATION PATIENT: Markus Nava REFERRING PROVIDER: Heike Milan MD ADMIT DATE: 06/06/2023 TODAY'S DATE: 06/13/2023 REASON FOR CONSULT 78y M with hx of aortic valve replacement now with MSSA bacteremia and AV endocarditis ASSESSMENT Markus Nava is a 78 y.o. male with previous Streptococcal [place] AV endocarditis requiring Ross procedure (1996) complicated by Graft dilation and AI requiring Bentall procedure (2001) on Warfarin admitted with MSSA endocarditis of mechanical valve. MSSA bacteremia with prosthetic/mechanical AV endocarditis FER (06/05/2023) at [facility] with 1.1cm x 0.7cm mobile vegetation on subaortic valvular lesion. Blood cultures initially positive on 06/02/2023. Started on intermittent Cefazolin with Gentamicin prior to transfer to [facility]. History of previous Streptococcal [place] AV endocarditis requiring Ross procedure (1996) complicated by Graft dilation and AI requiring Bentall procedure (2001) Warfarin held and transitioned to Heparin gtt for anticoagulation. High risk medication use: Aminoglycoside requiring close monitoring of renal function and if long-term use, monitoring for ototoxicity. Estimated Creatinine Clearance: 70 mL/min (by C-G formula based on SCr of 1.06 mg/dL). RECOMMENDATIONS Diagnostics Continue to monitor previously collected blood cultures. No repeat cultures necessary at this current time. Therapeutics Continue Cefazolin 3g every 12 hours as continuous infusion. Continue Gentamicin 60mg every 12 hours. Appreciate pharmacy assistance with dosing and monitoring. Refer to today's OPAT for more information. Utilize OPAT discharge order set for antibiotics on discharge. ID team 1 will sign off at this time. Please call aforementioned team with questions. Discussed with attending, Dr. Soliz. Asha Bundy MD Infectious Disease Fellow, PGY-5 SUBJECTIVE/INTERVAL HISTORY Afebrile, hemodynamically stable, and on room air. Continues to do well without back or joint pain. Denies fevers or chills. Cefazolin: 06/04/2023-Current Gentamicin: 06/06/2023-Current Piperacillin-Tazobactam: 06/02/2023-06/04/2023 Vancomycin: 06/02/2023-06/04/2023 Review of systems otherwise negative, unless noted above. INPATIENT MEDICATIONS AMIOdarone 200 mg Oral Daily ceFAZolin (ANCEF) 3 g in Sodium chloride 0.9%, with overfill 290 mL IV infusion 3 g Intravenous Q12HNS DULoxetine 60 mg Oral Daily gentamicin 60 mg Intravenous Q12HNS Metoprolol 50 mg Oral BID Pantoprazole 40 mg Oral Daily predniSONE 20 mg Oral Daily Tamsulosin HCl 0.4 mg Oral Daily [Held by provider] Warfarin 6.5 mg Oral Daily early evening Allergies Allergies Allergen Reactions Alprazolam Other Reaction(s): Other Altered mental status-tolerates lorazepam PHYSICAL EXAM Temp: [97.9 F (36.6 C)-98.7 F (37.1 C)] 98.1 F (36.7 C) Pulse (Heart Rate): [68-74] 69 Resp Rate: [18] 18 BP: (112-140)/(53-81) 134/65 O2 Sat (%): [92 %-100 %] 97 % Physical Exam Constitutional: General: He is not in acute distress. HENT: Head: Atraumatic. Cardiovascular: Rate and Rhythm: Normal rate. Heart sounds: Normal heart sounds. Pulmonary: Effort: Pulmonary effort is normal. Abdominal: General: There is no distension. Palpations: Abdomen is soft. Tenderness: There is no abdominal tenderness. Musculoskeletal: General: No swelling, tenderness or deformity. Skin: General: Skin is warm. Neurological: Mental Status: He is alert. Mental status is at baseline. Psychiatric: Mood and Affect: Mood normal. LABS AND IMAGING Lab Results Component Value Date WBC 15.06 (H) 06/08/2023 HGB 10.2 (L) 06/08/2023 HCT 32.6 (L) 06/08/2023 PLATELET 260 06/11/2023 MCV 90.6 06/08/2023 Lab Results Component Value Date SODIUM 138 06/13/2023 POTASSIUM 4.2 06/13/2023 CHLORIDE 104 06/13/2023 CO2 26 06/13/2023 BUN 21 06/13/2023 CREATSERUM 1.06 06/13/2023 Microbiologic Data (personally reviewed): Blood (06/02/2023, [facility]): MSSA Blood (06/06/2023): MSSA (Line & Peripheral) Blood (06/08/2023): No growth to date Blood (06/11/2023): No growth to date Urine (06/02/2023): MSSA Imaging (personally reviewed): TTE (06/02/2023): Poor visualization of prosthetic AV. FER (06/05/2023): 1.1x0.7cm vegetation on prosthetic AV. Chest XR (06/06/2023): Pulmonary edema. ID Staff: I saw and examined the patient on 06/13/[address] Bundy. I agree with and/or have edited the note to reflect my thoughts including the history/ROS, physical exam, and medical decisions. I have discussed the findings and therapeutic plan with the fellow and we collaborated on medical decision making for this patient. 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 Has been receiving cefazolin plus gentamicin (rifampin was deferred given need for warfarin and concern for drug-drug interaction impeding the treatment of therapeutic levels as well as amiodarone use). Has been evaluated by Cardiology and cardiac surgery -- seems no imminent plans for surgical intervention (not clear patient would be amenable anyway). Microbiology data personally reviewed/interpreted -- blood cultures with growth of Staphylococcus aureus from 06/02/2023 -- 06/06/2023; blood cultures from 06/08/2023 currently without growth. Imaging notable for FER findings as described above. 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 Appreciate ongoing discussion between Cardiology, cardiac surgery, and the patient regarding management options as not clear antimicrobial therapy alone will be sufficient to cure this process. Follow-up blood cultures to ensure durable clearance (including sets obtained after removal of prior central line which was removed 06/11/23). If surgical intervention on the valve is not an option or not pursued, will ultimately need to pursue a prolonged course of IV antimicrobials and likely subsequent group home oral suppression (eg, cephalexin or TMP/SMX). For now, continue IV cefazolin by continuous infusion -- plan for 8-week course from durable blood culture clearance (current day 1 = 06/08/23). Continue gentamicin for synergy (important to monitor renal function and drug levels; appreciate pharmacy assistance and monitoring while on this regimen) -- plan for 2-week course (day 1 = 06/06/23) - please ensure stable dosing and levels prior to discharge. Considered addition of rifampin, but deferred for drug-drug interactions as noted above. Kelvin Soliz MD, PhD [employer] Supervisorprincipal strategist Division of Infectious Diseases Images from the original note were not included. CARDIOLOGY CONSULT PROGRESS NOTE Cardiology consult 06/06/2023 for 78y M with hx of aortic valve replacement now with MSSA bacteremia and AV endocarditis HPI I saw Mr. Markus Fitch Kangana in follow-up on 06/13/2023. He is a 78 y.o. male with a history of streptococcal endocarditis of AV s/p AVR (1996) c/b graft dilation and aortic insufficiency s/p Bentall procedure (2001), AF, diverticulitis s/p partial colectomy with c/f Crohn's, anxiety and depression who initially presented to an OSH 06/02/23 with fevers and chills, found to have MSSA bacteremia and septic shock c/b AF with RVR, with FER revealing a vegetation on the aortic valve prompting tx to [facility] on 06/06/2023. 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 FER 06/05/23 showed AV freely mobile mass c/w vegetation measuring 1.1cm x 0.7cm. Blood cultures NTD since 06/08/22, last positive on 06/06/22 - CTS Dr. Sabillon following, recommend completing AB course and follow-up echo in 4-6 weeks with outpatient CTS follow-up - ABs per ID; awaiting clearance from ID for PICC line placement - Recommend daily 12-lead ECGs and continuous telemetry to monitor for high degree AV block - Please set him up with his outpatient pediatric anesthesiologist in [place] to be seen within 1 month of discharge History of AVE s/p mechanical AVR: history of AVE 2/2 strep s/p AVR and reconstruction of RVOT using 29mm pulmonary homograft c/b graft dilation and AI s/p modified Bentall procedure with AVR and aortic root replacement using 25mm [place] [place] and hemashield composite graft in 2001. - Patient will need systemic AC with warfarin and heparin gtt bridge until goal INR 2.5-3.5 given mechanical AV with risk factors (AF). Would monitor closely for any evidence of septic emboli to brain given c/f hemorrhagic conversion while on AC. Acute HFmrEF: TTE 06/02/23 showed LVEF 40-45% and FER 06/05/23 showed LVEF 50% in setting of sepsis and AVE and mild to moderate MR. - Net positive 294 ml in the last 24 hours/net negative 5.37 Liters this admission. Creatinine stable. Warm and wet on exam today. No weight filed today. - Recommend giving lasix 40mg IV today and would concentrate IVAB volume as able - GDMT: Transition from metoprolol 50mg BID to Toprol XL 100 mg daily starting tomorrow as patient already received AM dose of metoprolol. Would add losartan 12.5mg daily if BP allows after monitoring response with Toprol XL. - Strict I/Os, daily weight, optimize lytes to keep K>4 and Mg>2 Paroxysmal atrial fibrillation: known history since 2001. RVR noted at OSH in the setting of MSSA bacteremia, septic shock. Initiated on amio gtt and transitioned to PO amio. - Currently in rate-controlled AF - Patient confirms he does not take amiodarone at home. Discontinue po amiodarone 200 mg daily and increase BB if needed per BP tolerance for rate control. - [id number] is 3, continue systemic AC with warfarin and heparin gtt bridge. Goal INR 2.5-3.5 d/t mechanical AV. - Ongoing supportive care of underlying illness, volume status - Maintain electrolytes for K>4, Mg>2 - Continue telemetry Other hospital problems: Basal cell carcinoma: found on right neck; diagnosed by derm this admission Supratherapeutic INR: resolved; on heparin gtt Diverticulitis s/p partial colectomy: ?Crohn's disease on colonoscopy, on prednisone and PPI. Follows with outpatient GI Urethral stricture: s/p dilation by urology at OSH, on flomax Anxiety/depression: on ativan and duloxetine History of GIB: 04/2023 Chronic ROGER: holding home iron d/t acute infection INTERVAL HISTORY/REVIEW OF SYSTEMS Over the last day, he had no acute events. Reports he is frustrated this morning after conversation with ID; may require IV antibiotics for extended period of time. Continues to ambulate in the hallway without negative symptoms. He is seen sitting on the edge of the bed in no acute distress. Review of Systems Constitutional: Negative for activity change, chills, fatigue and fever. Respiratory: Negative for chest tightness, shortness of breath and wheezing. Cardiovascular: Positive for leg swelling. Negative for chest pain and palpitations. Improving BLE edema Gastrointestinal: Negative for constipation, diarrhea, nausea and vomiting. Neurological: Negative for syncope and light-headedness. PHYSICAL EXAM BP 134/65 (BP Location: Left arm, BP Position: Lying) Pulse 69 Temp 98.1 F (36.7 C) (Oral) Resp 18 Ht 1.829 m (6') Comment: estimated Wt 97.5 kg (214 lb 14.4 oz) SpO2 97% BMI 29.15 kg/m Smoking Status Never Constitutional: Awake and in no distress. Chest: Respiratory effort is unlabored. Lungs are clear without rales, rhonchi or wheezes. Cardiovascular: No JVD appreciated. Irregularly irregular rate and rhythm; S1 normal, S2 normal. Exam reveals no gallop, no friction rub. No murmur heard. Valve click present. Abdomen: Soft, non-tender, non-distended. +BS. Extremities: 2+ BLE pitting edema. No stasis dermatitis. Radial, dorsalis pedis and posterior tibial pulses are 2+ bilaterally. Neurological: Alert and oriented to person, place and time. Skin: Warm, dry. No cyanosis. Nails show no clubbing. CARDIOVASCULAR IMAGING/DATA Cardiac Catheterization 2001 (OSH): - Left Coronary Artery: no angiographically definable disease - Right Coronary Artery: no angiographically definable disease {dominant) TTE 02/03/1997: - LVEF 65% - Large AV vegetations; severe AI - No definite MV vegetation seen (mild focal prolapse of a scallop of the valve without significant leak.) 24 hour telemetry (personally reviewed): AF 60-70's. ADDITIONAL DATA REVIEWED Intake/Output Summary (Last 24 hours) at 06/13/2023 0717 Last data filed at 06/13/2023 0440 Gross per 24 hour Intake 2144.34 ml Output 1850 ml Net 294.34 ml Temp: [97.9 F (36.6 C)-98.7 F (37.1 C)] 98.1 F (36.7 C) Pulse (Heart Rate): [68-74] 69 Resp Rate: [18] 18 BP: (112-140)/(53-81) 134/65 O2 Sat (%): [92 %-100 %] 97 % Oxygen Therapy O2 Sat (%): 97 % O2 Device: room air Body mass index is 29.15 kg/m . LABS Bun/Creat/Cl/CO2/Glucose: 21/1.06/104/26/95 (06/13 326) Na/K+/Phos/Mg/Ca: 138/4.2/--/2.0/-- (06/13 326) No results found for: BNP Lab Results Component Value Date CHOLESTEROL 183 08/28/2001 CHOLESTEROL 183 08/28/2001 TRIG 121 08/28/2001 HDL 35 (L) 08/28/2001 CURRENT MEDICATIONS: AMIOdarone 200 mg Oral Daily ceFAZolin (ANCEF) 3 g in Sodium chloride 0.9%, with overfill 290 mL IV infusion 3 g Intravenous Q12HNS DULoxetine 60 mg Oral Daily gentamicin 60 mg Intravenous Q12HNS Metoprolol 50 mg Oral BID Pantoprazole 40 mg Oral Daily predniSONE 20 mg Oral Daily Tamsulosin HCl 0.4 mg Oral Daily [Held by provider] Warfarin 6.5 mg Oral Daily early evening heparin 15 Units/kg/hr (06/12/232106) [id number] Score for Atrial Fibrillation Stroke Risk Age in Years: 75+ Sex: Male CHF History: Yes Hypertension History: No Stroke/TIA/Thromboembolism History: No Vascular Disease History: No Diabetes History: No [id number] Score: 3 Complexity. Thank you for this consult. Please call with questions. We will continue to follow along. CHEO [facility] Cardiology Consult Service Phone: [phone] [facility] Medicine Progress Note Patient: Markus Nava, : 1945, Impression / Plan Markus Nava is a 78 y.o. 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 MSSA bacteremia and endocarditis of prosthetic AV valve Initially with septic shock at OSH, now resolved. Found to have MSSA bacteremia. Prosthetic AV vegetation confirmed on OSH FER. - Continue cefazolin 3g q12h over 12 hours for 6 weeks and gentamicin 80mg q8h for a 2 week course. Per OSH records, rifampin was also considered but concerns for drug interaction with amiodarone and not yet started. ID said no rifampin needed at this time as well. - Consult ID gentamicin and cefazolin Blood cultures negative from 06/08, last positive 06/06, culture negative to date 06/11 -Dc Internal jugular line and monitor culture results per ID recs, then place picc and get opat. Per 06/11 recs - Consult cardiology and cardiothoracic surgery - Follow up OSH Bcx to ensure clearance of bacteremia Supratherapeutic INR - resolved Mechanical aortic valve present INR 3.8 on admission to OSH, 3.4 today per OSH records. INR 2.5 on admission here. Restart warfarin after PICC Is placed and right internal jugular catheter is removed. Continue with heparin gtt Atrial fibrillation CHADSVASC 3 (age, HTN). RVR at OSH, started on amiodarone. - Continue amiodarone 200 mg daily - Continue metoprolol 50mg BID - Telemetry - Cardiology consult as above JEFF - hold diuresis History of GI bleed Diverticulitis s/p partial colectomy Suspected Crohn's disease History of diverticulitis s/p partial colectomy, but recently with GI bleed in Apr 2023. Colonoscopy with concern for Crohn's disease, discharged on steroid taper. - Continue pantoprazole 40 mg daily - Continue prednisone 20mg daily - Outpatient follow up with GI Urethral stricture s/p dilation Urology consulted and dilation performed at OSH, brown removed prior to transfer. - Continue flomax, monitor for signs of retention Anxiety - Continue ativan 0.5 mg po BID prn and duloxetine 60mg daily Leukocytosis - Likely due to known infection as above, continue to monitor Basal Cell Carcinoma - wide excision - Mohs procedure Appreciate derm- will be done outpatient DADA Likely from continuous Abx infusions. -5L for the last 24 hours with bid lasix - lasix dose again on 06/12 if cr ok- cr trended upward Complexity. Any conditions listed below are present on admission unless otherwise specified. .Chronic Iron Deficiency Anemia - hold home iron supplementation in setting of acute infection Complexity. Any conditions listed below are present on admission unless otherwise specified. . DVT prophylaxis with heparin gtt, add warfarin once picc placed. Anticipated Disposition: home Code status is Full Code Interval History / Subjective No events over night, afebrile Objective Temp: [97.9 F (36.6 C)-98.3 F (36.8 C)] 98.3 F (36.8 C) Pulse (Heart Rate): [67-73] 70 Resp Rate: [16-18] 18 BP: (104-149)/(53-72) 112/53 O2 Sat (%): [92 %-99 %] 92 % Weight: [97.5 kg (214 lb 14.4 oz)] 97.5 kg (214 lb 14.4 oz) Physical Exam Gen: A, A, NAD Neck : pearly lesion on the right neck , right neck line in place ENT: MMM Resp: CTA bilat, normal effort Cardio: RRR, normal S1, S2, No DADA GI: S/NT/ND, NABS Psych: Ox3, appropriate affect and cognition Data Review Na/K+/Phos/Mg/Ca: 137/4.4/--/2.0/-- (06/12 431) Bun/Creat/Cl/CO2/Glucose: 20/1.12/101/27/96 (06/12 431) Ptt/Pt/Inr: 63.5/17.7/1.5 (06/12 431-06/12 1240) Cxr pulm edema Images from the original note were not included. CARDIOLOGY CONSULT PROGRESS NOTE Cardiology consult 06/06/2023 for 78y M with hx of aortic valve replacement now with MSSA bacteremia and AV endocarditis HPI I saw Mr. Markus Nava in follow-up on 06/12/2023. He is a 78 y.o. male with a history of streptococcal endocarditis of AV s/p AVR (1996) c/b graft dilation and aortic insufficiency s/p Bentall procedure (2001), AF, diverticulitis s/p partial colectomy with c/f Crohn's, anxiety and depression who initially presented to an OSH 06/02/23 with fevers and chills, found to have MSSA bacteremia and septic shock c/b AF with RVR, with FER revealing a vegetation on the aortic valve prompting tx to [facility] on 06/06/2023. 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 FER 06/05/23 showed AV freely mobile mass c/w vegetation measuring 1.1cm x 0.7cm. Blood cultures NTD since 06/08/22, last positive on 06/06/22 - CTS Dr. Sabillon following, recommend completing AB course and follow-up echo in 4-6 weeks with outpatient CTS follow-up - ABs per ID; awaiting clearance from ID for PICC line placement - Recommend daily 12-lead ECGs and continuous telemetry to monitor for high degree AV block - Please set him up with his outpatient pediatric anesthesiologist in [place] to be seen within 1 month of discharge History of AVE s/p mechanical AVR: history of AVE 2/2 strep s/p AVR and reconstruction of RVOT using 29mm pulmonary homograft c/b graft dilation and AI s/p modified Bentall procedure with AVR and aortic root replacement using 25mm St. Shane and hemashield composite graft in 2001. - Patient will need systemic AC with warfarin and heparin gtt bridge until goal INR 2.5-3.5 given mechanical AV with risk factors (AF). Would monitor closely for any evidence of septic emboli to brain given c/f hemorrhagic conversion while on AC. Acute HFmrEF: TTE 06/02/23 showed LVEF 40-45% and FER 06/05/23 showed LVEF 50% in setting of sepsis and AVE and mild to moderate MR. - Net negative 619 ml in the last 24 hours/net negative 5.6 Liters this admission. Creatinine stable. Warm and wet on exam today. No weight filed today. - Recommend giving lasix 40mg IV today and would concentrate IVAB volume as able - GDMT: Transition from metoprolol 50mg BID to Toprol XL 100 mg daily starting tomorrow as patient already received AM dose of metoprolol. Would add losartan 12.5mg daily if BP allows after monitoring response with Toprol XL. - Strict I/Os, daily weight, optimize lytes to keep K>4 and Mg>2 Paroxysmal atrial fibrillation: known history since 2001. RVR noted at OSH in the setting of MSSA bacteremia, septic shock. Initiated on amio gtt and transitioned to PO amio. - Currently in rate-controlled AF - Patient confirms he does not take amiodarone at home. Discontinue po amiodarone 200 mg daily and increase BB if needed per BP tolerance for rate control. - [id number] is 3, continue systemic AC with warfarin and heparin gtt bridge. Goal INR 2.5-3.5 d/t mechanical AV. - Ongoing supportive care of underlying illness, volume status - Maintain electrolytes for K>4, Mg>2 - Continue telemetry Other hospital problems: Basal cell carcinoma: found on right neck; diagnosed by derm this admission Supratherapeutic INR: resolved; on heparin gtt Diverticulitis s/p partial colectomy: ?Crohn's disease on colonoscopy, on prednisone and PPI. Follows with outpatient GI Urethral stricture: s/p dilation by urology at OSH, on flomax Anxiety/depression: on ativan and duloxetine History of GIB: 04/2023 Chronic ROGER: holding home iron d/t acute infection INTERVAL HISTORY/REVIEW OF SYSTEMS Over the last day, he had no acute events. Reports walking in halls with no negative symptoms. He is seen lying in bed in no acute distress. Review of Systems Constitutional: Negative for chills and fever. Respiratory: Negative for chest tightness, shortness of breath and wheezing. Cardiovascular: Positive for leg swelling. Negative for chest pain and palpitations. Gastrointestinal: Negative for constipation, diarrhea, nausea and vomiting. Neurological: Negative for dizziness, syncope, weakness and light-headedness. PHYSICAL EXAM BP 149/72 (BP Location: Left arm, BP Position: Sitting) Pulse 73 Temp 98.3 F (36.8 C) (Oral) Resp 18 Ht 1.829 m (6') Comment: estimated Wt 97.5 kg (214 lb 14.4 oz) SpO2 99% BMI 29.15 kg/m Smoking Status Never Constitutional: Awake and in no distress. Chest: Respiratory effort is unlabored. Lungs are clear without rales, rhonchi or wheezes. Cardiovascular: No JVD appreciated. Irregularly irregular rate and rhythm; S1 normal, S2 normal. Exam reveals no gallop, no friction rub. No murmur heard. Valve click present. No carotid bruits. Abdomen: Soft, non-tender, non-distended. +BS. Extremities: 2-3+ pitting BLE edema. No stasis dermatitis. Radial, dorsalis pedis and posterior tibial pulses are 2+ bilaterally. Neurological: Alert and oriented to person, place and time. Skin: Warm, dry. No cyanosis. Nails show no clubbing. CARDIOVASCULAR IMAGING/DATA Cardiac Catheterization 2002 ([facility]): - Left Coronary Artery: no angiographically definable disease - Right Coronary Artery: no angiographically definable disease {dominant) TTE 02/03/1997: - LVEF 65% - Large AV vegetations; severe AI - No definite MV vegetation seen (mild focal prolapse of a scallop of the valve without significant leak.) 24 hour telemetry (personally reviewed): AF 64-80. ADDITIONAL DATA REVIEWED Intake/Output Summary (Last 24 hours) at 06/12/2023 0741 Last data filed at 06/12/2023 0633 Gross per 24 hour Intake 1180.18 ml Output 1800 ml Net -619.82 ml Temp: [97.9 F (36.6 C)-98.5 F (36.9 C)] 98.3 F (36.8 C) Pulse (Heart Rate): [63-74] 73 Resp Rate: [15-18] 18 BP: (104-149)/(56-72) 149/72 O2 Sat (%): [77 %-100 %] 99 % Weight: [97.5 kg (214 lb 14.4 oz)-97.8 kg (215 lb 11.2 oz)] 97.5 kg (214 lb 14.4 oz) Oxygen Therapy O2 Sat (%): 99 % O2 Device: room air Body mass index is 29.15 kg/m . LABS Bun/Creat/Cl/CO2/Glucose: 20/1.12/101/27/96 (06/12 431) Na/K+/Phos/Mg/Ca: 137/4.4/--/2.0/-- (06/12 431) WBC/Hgb/Hct/Plts: --/--/--/260 (06/11 141) No results found for: BNP Lab Results Component Value Date CHOLESTEROL 183 08/28/2001 CHOLESTEROL 183 08/28/2001 TRIG 121 08/28/2001 HDL 35 (L) 08/28/2001 CURRENT MEDICATIONS: AMIOdarone 200 mg Oral Daily ceFAZolin (ANCEF) 3 g in Sodium chloride 0.9%, with overfill 290 mL IV infusion 3 g Intravenous Q12HNS DULoxetine 60 mg Oral Daily gentamicin 60 mg Intravenous Q12HNS Metoprolol 50 mg Oral BID Pantoprazole 40 mg Oral Daily predniSONE 20 mg Oral Daily Tamsulosin HCl 0.4 mg Oral Daily [Held by provider] Warfarin 6.5 mg Oral Daily early evening heparin 12 Units/kg/hr (06/12/23 0633) [id number] Score for Atrial Fibrillation Stroke Risk Age in Years: 75+ Sex: Male CHF History: Yes Hypertension History: No Stroke/TIA/Thromboembolism History: No Vascular Disease History: No Diabetes History: No [id number] Score: 3 Thank you for this consult. Please call with questions. We will continue to follow along. [facility] Consult Service Phone: [phone] Department of Pharmacy Antimicrobial Stewardship Documentation Note Patient: Markus Nava Room/Bed: 7032/A Staphylococcus aureus Bacteremia Monitoring The patient's microbiology lab has resulted as The patient's microbiology lab has resulted as MSSA bacteremia (S. aureus DNA detected, mecA/C and MREJ genes NOT detected by BCID2 panel) on 06/10 at 1208. Patient is currently on Cefazolin IV as empiric therapy. A member of the Pharmacy team has reviewed the patient's medical record and the following recommendations are based on [facility]'s Diagnosis and Management of Staphylococcus aureus Bacteremia in Adults practice guideline: Obtain Infectious Disease consult. Order repeat blood cultures daily until negative for 72 hours. Obtain echocardiogram. *FER is recommended in patients with a prosthetic valve or congential heart disease. Antibiotic treatment for MSSA bacteremia: Continue Cefazolin IV with Gentamicin synergy x 2 weeks therapy. Please feel free to contact me with any further questions. Name: Haley Mahmood RPH Phone: [phone] Date/Time: 06/12/2023 7:24 AM Discharge Plan Expected Discharge Date: 06/13/2023 Referred Level of Care: Home Health/Home Infusion Barriers: Cultures, Final ID recs/Antibiotic plan, PICC Current Referrals and Status [facility] assisting with Home Health/Home Infusion referrals. CM will continue following for discharge planning. Radha KEN Clinical [employer] [facility] Hospital Medicine Progress Note Patient: Markus Nava, : 1945, Impression / Plan Markus Nava is a 78 y.o. 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 MSSA bacteremia and endocarditis of prosthetic AV valve Initially with septic shock at OSH, now resolved. Found to have MSSA bacteremia. Prosthetic AV vegetation confirmed on OSH FER. - Continue cefazolin 3g q12h over 12 hours for 6 weeks and gentamicin 80mg q8h for a 2 week course. Per OSH records, rifampin was also considered but concerns for drug interaction with amiodarone and not yet started. ID said no rifampin needed at this time as well. - Consult ID gentamicin and cefazolin Blood cultures negative from 06/08, last positive 06/06 -Dc Internal jugular line and monitor culture results per ID recs, then place picc and get opat. Per 06/11 recs - Consult cardiology and cardiothoracic surgery - Follow up OSH Bcx to ensure clearance of bacteremia Supratherapeutic INR - resolved Mechanical aortic valve present INR 3.8 on admission to OSH, 3.4 today per OSH records. INR 2.5 on admission here. Restart warfarin after PICC Is placed and right internal jugular catheter is removed. Continue with heparin gtt Atrial fibrillation CHADSVASC 3 (age, HTN). RVR at OSH, started on amiodarone. - Continue amiodarone 200 mg daily - Continue metoprolol 50mg BID - Telemetry - Cardiology consult as above History of GI bleed Diverticulitis s/p partial colectomy Suspected Crohn's disease History of diverticulitis s/p partial colectomy, but recently with GI bleed in Apr 2023. Colonoscopy with concern for Crohn's disease, discharged on steroid taper. - Continue pantoprazole 40 mg daily - Continue prednisone 20mg daily - Outpatient follow up with GI Urethral stricture s/p dilation Urology consulted and dilation performed at OSH, brown removed prior to transfer. - Continue flomax, monitor for signs of retention Anxiety - Continue ativan 0.5 mg po BID prn and duloxetine 60mg daily Leukocytosis - Likely due to known infection as above, continue to monitor Basal Cell Carcinoma - wide excision - Mohs procedure Appreciate derm- will be done outpatient DADA Likely from continuous Abx infusions. -5L for the last 24 hours with bid lasix - lasix dose again on 06/12 if cr ok- cr trended upward Complexity. Any conditions listed below are present on admission unless otherwise specified. .Chronic Iron Deficiency Anemia - hold home iron supplementation in setting of acute infection Complexity. Any conditions listed below are present on admission unless otherwise specified. . DVT prophylaxis with heparin gtt, add warfarin once picc placed. Anticipated Disposition: home Code status is Full Code Interval History / Subjective Feels ok today No events over night Bp ok, Peed 5L Objective Temp: [98 F (36.7 C)-98.8 F (37.1 C)] (P) 98.5 F (36.9 C) Pulse (Heart Rate): [64-74] (P) 74 Resp Rate: [16-18] (P) 16 BP: (116-147)/(56-71) (P) 145/56 O2 Sat (%): [77 %-100 %] (P) 94 % Physical Exam Gen: A, A, NAD Neck : pearly lesion on the right neck , right neck line in place ENT: MMM Resp: CTA bilat, normal effort Cardio: RRR, normal S1, S2, No DADA GI: S/NT/ND, NABS Psych: Ox3, appropriate affect and cognition Data Review Na/K+/Phos/Mg/Ca: 137/4.2, 4.4/--/2.0/-- (06/11 334) Bun/Creat/Cl/CO2/Glucose: 21/1.10/100/27/81 (06/11 334) Ptt/Pt/Inr: 60.8/18.3/1.5 (06/11 334-06/11 0627) Cxr pulm edema [facility] Progress Expected Discharge Date: 06/13/23 Referred Level of Care: SN Barriers: No accepting agencies Current Referrals and Status: No accepting agencies Plan: Timer extended, message sent to agencies who had not responded as of yet. NATAN Mills RN Images from the original note were not included. CARDIOLOGY CONSULT PROGRESS NOTE Cardiology consult 06/06/2023 for 78y M with hx of aortic valve replacement now with MSSA bacteremia and AV endocarditis HPI I saw Mr. Markus Nava in follow-up on 06/11/2023. He is a 78 y.o. male with a history of streptococcal endocarditis of AV s/p AVR (1996) c/b graft dilation and aortic insufficiency s/p Bentall procedure (2001), AF, diverticulitis s/p partial colectomy with c/f Crohn's, anxiety and depression who initially presented to an OSH 06/02/23 with fevers and chills, found to have MSSA bacteremia and septic shock c/b AF with RVR, with FER revealing a vegetation on the aortic valve prompting tx to [facility] on 06/06/2023. 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 FER 06/05/23 showed AV freely mobile mass c/w vegetation measuring 1.1cm x 0.7cm. Blood cultures NTD since 06/08/22, last positive on 06/06/22 - CTS Dr. Sabillon following, recommend completing AB course and follow-up echo in 4-6 weeks with outpatient CTS follow-up - ABs per ID; PICC line placed today - Recommend daily ECGs and continuous telemetry to monitor for high degree AV block - Please set him up with his outpatient pediatric anesthesiologist in [place] to be seen within 1 month of discharge History of AVE s/p mechanical AVR: history of AVE 2/2 strep s/p AVR and reconstruction of RVOT using 29mm pulmonary homograft c/b graft dilation and AI s/p modified Bentall procedure with AVR and aortic root replacement using 25mm [place] and hemashield composite graft in 2001. - Continue systemic AC with warfarin and heparin gtt bridge. Goal INR 2.5-3.5 given mechanical AV with risk factors (AF). Would monitor closely for any evidence of septic emboli to brain given c/f hemorrhagic conversion while on AC. Acute HFmrEF: TTE 06/02/23 showed LVEF 40-45% and FER 06/05/23 showed LVEF 50% in setting of sepsis and AVE and mild to moderate MR. - Net negative 5 Liters in the last 24 hours/net negative 5 Liters this admission. Creatinine stable. Warm and wet on exam today. No weight filed today. - Recommend decreasing to lasix 40mg IV daily and would concentrate IVAB volume as able - GDMT: Transition from metoprolol 50mg BID to Toprol XL 100 mg daily starting tomorrow. Would add losartan 12.5mg daily when BP allows - Strict I/Os, daily weight, optimize lytes to keep K>4 and Mg>2 Paroxysmal atrial fibrillation: known history since 2001. RVR noted at OSH in the setting of MSSA bacteremia, septic shock. Initiated on amio gtt and transitioned to PO amio. - Currently in rate-controlled AF. - Continue rate control with BB and amiodarone - [id number] is 3, continue systemic AC with warfarin and heparin gtt bridge. Goal INR 2.5-3.5 - Ongoing supportive care of underlying illness, volume status - Maintain electrolytes for K>4, Mg>2 Other hospital problems: Basal cell carcinoma: found on right neck; diagnosed by derm this admission Supratherapeutic INR: resolved; on heparin gtt Diverticulitis s/p partial colectomy: ?Crohn's disease on colonoscopy, on prednisone and PPI. Follows with outpatient GI Urethral stricture: s/p dilation by urology at OSH, on flomax Anxiety/depression: on ativan and duloxetine History of GIB: 04/2023 Chronic ROGER: holding home iron d/t acute infection INTERVAL HISTORY/REVIEW OF SYSTEMS Over the last day, he had no acute events. Reports he is awaiting a PICC line for continued antibiotic therapy. States he has been able to ambulate in the halls without symptoms. He is seen sitting on the edge of the bed in no acute distress. Review of Systems Constitutional: Negative for activity change, chills, fatigue and fever. Respiratory: Negative for chest tightness and shortness of breath. Cardiovascular: Positive for leg swelling. Negative for chest pain and palpitations. Gastrointestinal: Negative for constipation, diarrhea, nausea and vomiting. Musculoskeletal: Positive for arthralgias. Neurological: Negative for dizziness, syncope and light-headedness. Psychiatric/Behavioral: Negative for sleep disturbance. PHYSICAL EXAM BP 138/65 (BP Location: Left arm, BP Position: Sitting) Pulse 68 Temp 98.4 F (36.9 C) (Oral) Resp 16 Ht 1.829 m (6') Comment: estimated Wt 98.5 kg (217 lb 3.2 oz) SpO2 100% BMI 29.46 kg/m Smoking Status Never Constitutional: Awake and in no distress. Chest: Respiratory effort is unlabored. Lungs are clear without rales, rhonchi or wheezes. Cardiovascular: No JVD appreciated. Irregularly irregular rate and rhythm; S1 normal, S2 normal. Exam reveals no gallop, no friction rub. Valve click heard. Abdomen: Soft, non-tender, non-distended. +BS. Extremities: 2-3+ BLE pitting edema below knee. No stasis dermatitis. Radial pulses 1+ bilaterally, dorsalis pedis and posterior tibial pulses are 1+ bilaterally. Neurological: Alert and oriented to person, place and time. Skin: Warm, dry. No cyanosis. Nails show no clubbing. CARDIOVASCULAR IMAGING/DATA Cardiac Catheterization 2002 ([facility]): - Left Coronary Artery: no angiographically definable disease - Right Coronary Artery: no angiographically definable disease {dominant) TTE 02/03/1997: - LVEF 65% - Large AV vegetations; severe AI - No definite MV vegetation seen (mild focal prolapse of a scallop of the valve without significant leak.) 24 hour telemetry (personally reviewed): AF 63-73. ADDITIONAL DATA REVIEWED Intake/Output Summary (Last 24 hours) at 06/11/2023 0815 Last data filed at 06/11/2023 0629 Gross per 24 hour Intake 2246.2 ml Output 6975 ml Net -4728.8 ml Temp: [98 F (36.7 C)-98.8 F (37.1 C)] 98.4 F (36.9 C) Pulse (Heart Rate): [64-79] 68 Resp Rate: [16-18] 16 BP: (116-147)/(56-71) 138/65 O2 Sat (%): [95 %-100 %] 100 % Oxygen Therapy O2 Sat (%): 100 % O2 Device: room air Body mass index is 29.46 kg/m . LABS Na/K+/Phos/Mg/Ca: --/4.2/--/2.0/-- (06/11 334) No results found for: BNP Lab Results Component Value Date CHOLESTEROL 183 08/28/2001 CHOLESTEROL 183 08/28/2001 TRIG 121 08/28/2001 HDL 35 (L) 08/28/2001 CURRENT MEDICATIONS: AMIOdarone 200 mg Oral Daily ceFAZolin (ANCEF) 3 g in Sodium chloride 0.9%, with overfill 290 mL IV infusion 3 g Intravenous Q12HNS DULoxetine 60 mg Oral Daily furosemide 40 mg Intravenous Q12H gentamicin 60 mg Intravenous Q12HNS Metoprolol 50 mg Oral BID Pantoprazole 40 mg Oral Daily predniSONE 20 mg Oral Daily Tamsulosin HCl 0.4 mg Oral Daily [Held by provider] Warfarin 6.5 mg Oral Daily early evening heparin 11 Units/kg/hr (06/11/23 0800) [id number] Score for Atrial Fibrillation Stroke Risk Age in Years: 75+ Sex: Male CHF History: Yes Hypertension History: No Stroke/TIA/Thromboembolism History: No Vascular Disease History: No Diabetes History: No [id number] Score: 3 Thank you for this consult. Please call with questions. We will continue to follow along. [facility] Consult Service Phone: [phone] Images from the original note were not included. INFECTIOUS DISEASE FOLLOW-UP NOTE IDENTIFYING INFORMATION PATIENT: Markus Nava REFERRING PROVIDER: Heike Milan MD ADMIT DATE: 06/06/2023 TODAY'S DATE: 06/11/2023 REASON FOR CONSULT 78y M with hx of aortic valve replacement now with MSSA bacteremia and AV endocarditis ASSESSMENT Markus Nava is a 78 y.o. male with previous Streptococcal [place] AV endocarditis requiring Ross procedure (1996) complicated by Graft dilation and AI requiring Bentall procedure (2001) on Warfarin admitted with MSSA endocarditis of mechanical valve. MSSA bacteremia with prosthetic/mechanical AV endocarditis FER (06/05/2023) at [facility] with 1.1cm x 0.7cm mobile vegetation on subaortic valvular lesion. Blood cultures initially positive on 06/02/2023. Started on intermittent Cefazolin with Gentamicin prior to transfer to [facility]. History of previous Streptococcal [place] AV endocarditis requiring Ross procedure (1996) complicated by Graft dilation and AI requiring Bentall procedure (2001) Warfarin held and transitioned to Heparin gtt for anticoagulation. Leukocytosis with neutrophilic predominance Normocytic anemia Abnormal LFTs High risk medication use: Aminoglycoside requiring close monitoring of renal function and if long-term use, monitoring for ototoxicity. Estimated Creatinine Clearance: 81 mL/min (by C-G formula based on SCr of 0.91 mg/dL). RECOMMENDATIONS Diagnostics Recommend CVC removal as placed while bacteremic with line holiday, as able. Following line removal, repeat blood cultures today, 06/11/2023 to ensure clearance given high burden of disease, as one day of clearance is not sufficient. Monitor closely for signs or symptoms of embolic disease. Therapeutics Cefazolin 3g every 12 hours as continuous infusion. Gentamicin 1mg/kg every 8 hours for synergy. Appreciate pharmacy assistance with dosing Limited use of Rifampin given anticipated initiation of Warfarin again, which would preclude reaching therapeutic INR. ID team 1 will continue to follow. Please call aforementioned team with questions. Discussed with attending, Dr. Soliz. Asha Bundy MD Infectious Disease Fellow, PGY-5 SUBJECTIVE/INTERVAL HISTORY Afebrile, hemodynamically stable, and on room air. States he has still been able to ambulate around the floor. No new joint or back pain. Discussed severity of infection and possibility that even after completion of antibiotics, possibly with suppression, his infection could recur. Cefazolin: 06/04/2023-Current Gentamicin: 06/06/2023-Current Piperacillin-Tazobactam: 06/02/2023-06/04/2023 Vancomycin: 06/02/2023-06/04/2023 Review of systems otherwise negative, unless noted above. INPATIENT MEDICATIONS AMIOdarone 200 mg Oral Daily ceFAZolin (ANCEF) 3 g in Sodium chloride 0.9%, with overfill 290 mL IV infusion 3 g Intravenous Q12HNS DULoxetine 60 mg Oral Daily furosemide 40 mg Intravenous Q12H gentamicin 60 mg Intravenous Q12HNS Metoprolol 50 mg Oral BID Pantoprazole 40 mg Oral Daily predniSONE 20 mg Oral Daily Tamsulosin HCl 0.4 mg Oral Daily [Held by provider] Warfarin 6.5 mg Oral Daily early evening Allergies Allergies Allergen Reactions Alprazolam Other Reaction(s): Other Altered mental status-tolerates lorazepam PHYSICAL EXAM Temp: [97.7 F (36.5 C)-98.8 F (37.1 C)] 98.4 F (36.9 C) Pulse (Heart Rate): [64-79] 69 Resp Rate: [16-18] 16 BP: (116-147)/(56-71) 147/71 O2 Sat (%): [95 %-100 %] 97 % Physical Exam Constitutional: General: He is not in acute distress. HENT: Head: Atraumatic. Neck: Comments: R internal jugular CVC remains in place. Cardiovascular: Rate and Rhythm: Normal rate. Heart sounds: Normal heart sounds. Pulmonary: Effort: Pulmonary effort is normal. Abdominal: General: There is no distension. Palpations: Abdomen is soft. Tenderness: There is no abdominal tenderness. Musculoskeletal: General: No swelling or tenderness. Skin: General: Skin is warm. Neurological: General: No focal deficit present. Mental Status: He is alert. Psychiatric: Mood and Affect: Mood normal. Behavior: Behavior normal. LABS AND IMAGING Lab Results Component Value Date WBC 15.06 (H) 06/08/2023 HGB 10.2 (L) 06/08/2023 HCT 32.6 (L) 06/08/2023 PLATELET 287 06/09/2023 MCV 90.6 06/08/2023 Lab Results Component Value Date SODIUM 138 06/10/2023 POTASSIUM 4.2 06/11/2023 CHLORIDE 104 06/10/2023 CO2 26 06/10/2023 BUN 21 06/10/2023 CREATSERUM 0.91 06/10/2023 Microbiologic Data (personally reviewed): Blood (06/02/2023, [facility]): MSSA Blood (06/06/2023): MSSA (Line & Peripheral) Blood (06/08/2023): No growth to date Blood (06/11/2023): No growth to date Urine (06/02/2023): MSSA Imaging (personally reviewed): TTE (06/02/2023): Poor visualization of prosthetic AV. FER (06/05/2023): 1.1x0.7cm vegetation on prosthetic AV. Chest XR (06/06/2023): Pulmonary edema. ID Staff: I saw and examined the patient on 06/11/[address] Bundy. I agree with and/or have edited the note to reflect my thoughts including the history/ROS, physical exam, and medical decisions. I have discussed the findings and therapeutic plan with the fellow and we collaborated on medical decision making for this patient. 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 Has been receiving cefazolin plus gentamicin (rifampin was deferred given need for warfarin and concern for drug-drug interaction impeding the treatment of therapeutic levels). Has been evaluated by Cardiology and cardiac surgery -- seems no imminent plans for surgical intervention (not clear patient would be amenable anyway). Microbiology data personally reviewed/interpreted -- blood cultures with growth of Staphylococcus aureus from 06/02/2023 -- 06/06/2023; blood cultures from 06/08/2023 currently without growth. Imaging notable for FER findings as described above. 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 Appreciate ongoing discussion between Cardiology, cardiac surgery, and the patient regarding management options as not clear antimicrobial therapy alone will be sufficient to cure this process. Needs current line removed with line holiday. Currently with a single date of blood cultures without growth -- a skip phenomenon does occur, recommend obtaining additional blood cultures today to ensure durable clearance. If surgical intervention on the valve is not an option or not pursued, will ultimately need to pursue a prolonged course of IV antimicrobials and likely subsequent intermodal dispatcher oral suppression. For now, continue IV cefazolin by continuous infusion -- anticipate 6-8 week course from durable blood culture clearance (current day 1 = 06/08/23) with likely subsequent chronic oral suppression. Continue gentamicin for synergy (important to monitor renal function and drug levels; appreciate pharmacy assistance and monitoring while on this regimen) -- plan for 2-week course. Kelvin Soliz MD, PhD Pump Servicer Supervisorprincipal strategist Division of Infectious Diseases [facility] Medicine Progress Note Patient: Markus Nava, : 1945, Impression / Plan Markus Nava is a 78 y.o. 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 MSSA bacteremia and endocarditis of prosthetic AV valve Initially with septic shock at OSH, now resolved. Found to have MSSA bacteremia. Prosthetic AV vegetation confirmed on OSH FER. - Continue cefazolin 3g q12h over 12 hours for 6 weeks and gentamicin 80mg q8h for a 2 week course. Per OSH records, rifampin was also considered but concerns for drug interaction with amiodarone and not yet started. ID said no rifampin needed at this time as well. - Consult ID gentamicin and cefazolin, opat pending. PICC needs placed. Patient hesitant about managing abx at home as he is not feeling like he can withstand administering himself abx he also does not what to go to a snf. Blood cultures drawn again today, conitnue to be positive from 06/06. - Consult cardiology and cardiothoracic surgery - Follow up OSH Bcx to ensure clearance of bacteremia Supratherapeutic INR - resolved Mechanical aortic valve present INR 3.8 on admission to OSH, 3.4 today per OSH records. INR 2.5 on admission here. Restart warfarin after PICC Is placed and right internal jugular catheter is removed. Atrial fibrillation CHADSVASC 3 (age, HTN). RVR at OSH, started on amiodarone. - Continue amiodarone 200 mg daily - Continue metoprolol 50mg BID - Telemetry - Cardiology consult as above History of GI bleed Diverticulitis s/p partial colectomy Suspected Crohn's disease History of diverticulitis s/p partial colectomy, but recently with GI bleed in Apr 2023. Colonoscopy with concern for Crohn's disease, discharged on steroid taper. - Continue pantoprazole 40 mg daily - Continue prednisone 20mg daily - Outpatient follow up with GI Urethral stricture s/p dilation Urology consulted and dilation performed at OSH, brown removed prior to transfer. - Continue flomax, monitor for signs of retention Anxiety - Continue ativan 0.5 mg po BID prn and duloxetine 60mg daily Leukocytosis - Likely due to known infection as above, continue to monitor Basal Cell Carcinoma - wide excision - Mohs procedure Problem list reviewed at admission. Complexity. Any conditions listed below are present on admission unless otherwise specified. .Chronic Iron Deficiency Anemia - hold home iron supplementation in setting of acute infection Complexity. Any conditions listed below are present on admission unless otherwise specified. . DVT prophylaxis with heparin gtt Anticipated Disposition: home Code status is Full Code Interval History / Subjective Patient is contemplating what to do about the antibiotics neigher option is sounding good to him going [facility] abx makes him nervious and snf as well isn't ideal Objective Temp: [97.5 F (36.4 C)-98.8 F (37.1 C)] 98.8 F (37.1 C) Pulse (Heart Rate): [64-79] 64 Resp Rate: [16-18] 18 BP: (110-133)/(55-73) 116/65 O2 Sat (%): [95 %-100 %] 95 % Physical Exam Gen: A, A, NAD Neck : pearly lesion on the right neck , right neck line in place ENT: MMM Resp: CTA bilat, normal effort Cardio: RRR, normal S1, S2, No DADA GI: S/NT/ND, NABS Psych: Ox3, appropriate affect and cognition Data Review WBC/Hgb/Hct/Plts: --/--/--/287 (06/09 2018) Na/K+/Phos/Mg/Ca: 138/3.9/--/1.8/-- (06/10 326) Bun/Creat/Cl/CO2/Glucose: 21/0.91/104/26/87 (06/10 326) Ptt/Pt/Inr: 62.5/17.1/1.4 (06/10 326-06/10 1317) Cxr pulm edema Department of Pharmacy Pharmacokinetics Progress Note Patient: Markus Nava Room/Bed: 7032/A Assessment and Plan: Based upon drug level assessment and interpretation (steady state), I have changed the gentamicin dose and/or dosing interval to 60 mg IV every 12 hours. Next dose to start at 2100 on 06/10/23. A pharmacist will continue to follow and order drug levels and adjust dosing as clinically appropriate. I have modified the orders in [facility] to reflect the above plan. Gentamicin Regimen at Time of Level: Gentamicin 60 mg IV every 8 hours. Desired Therapeutic Trough Concentration: <1 g/mL Last Doses Administered: Dose: Date: Time: 60mg 06/10 05:56 Gentamicin Levels: 1.5 g/mL drawn at 13:18 on 06/10 (drawn 7 hours after previous dose) Most Recent Labs: WBC Count Date Value Ref Range Status 06/08/2023 15.06 (H) 3.73 - 10.10 K/uL Final BUN Date Value Ref Range Status 06/10/2023 21 7 - 25 mg/dL Final Creatinine Date Value Ref Range Status 06/10/2023 0.91 0.70 - 1.30 mg/dL Final I/O last 3 completed shifts: In: 2189.2 [P.O.:1290; I.V.:250.5; IV Piggyback:648.7] Out: 5800 [Urine:5800] Estimated Creatinine Clearance: 81 mL/min (by C-G formula based on SCr of 0.91 mg/dL). Please feel free to contact me with any further questions. Name: Kelvin Pitts RPH Phone: [phone] Date/Time: 06/10/2023 3:10 PM Images from the original note were not included. CARDIOLOGY CONSULT PROGRESS NOTE Cardiology consulted 06/06/2023 for 78y M with hx of aortic valve replacement now with MSSA bacteremia and AV endocarditis HPI I saw Mr. Markus Nava in follow-up on 06/10/2023. He is a 78 y.o. male with a history of streptococcal endocarditis of AV s/p AVR (1996) c/b graft dilation and aortic insufficiency s/p Bentall procedure (2001), AF, diverticulitis s/p partial colectomy with c/f Crohn's, anxiety and depression who initially presented to an OSH 06/02/23 with fevers and chills, found to have MSSA bacteremia and septic shock c/b AF with RVR, with FER revealing a vegetation on the aortic valve prompting tx to [facility] on 06/06/2023. 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 FER 06/05/23 showed AV freely mobile mass c/w vegetation measuring 1.1cm x0.7cm. Blood cultures NTD since 06/08/22, last positive on 06/06/22 - CTS Dr. Sabillon following, recommend completing AB course and follow-up echo in 4-6 weeks with outpatient CTS follow-up - ABs per ID - Recommend daily ECGs and continuous telemetry to monitor for high degree AV block - Consider dermatology consult for skin lesion on chin, concern this is the sourse of infection given patient reporting picking at the lesion regularly. Of note he was told by his oncologist friend that the lesion looked like basal cell carcinoma - Please set him up with his outpatient pediatric anesthesiologist in [place] to be seen within 1 month of discharge History of AVE s/p mechanical AVR: history of AVE 2/2 strep s/p AVR and reconstruction of RVOT using 29mm pulmonary homograft c/b graft dilation and AI s/p modified Bentall procedure with AVR and aortic root replacement using 25mm [facility] [place] and hemashield composite graft in 2001. - Continue systemic AC with warfarin and heparin gtt bridge. Goal INR 2.5-3.5 given mechanical AV with risk factors (AF). Would monitor closely for any evidence of septic emboli to brain given c/f hemorrhagic conversion while on AC. Acute HFmrEF: TTE 06/02/23 showed LVEF 40-45% and FER 06/05/23 showed LVEF 50% in setting of sepsis and AVE and mild to moderate MR. - Net negative 2 Liters in the last 24 hours/net positive 7.5 Liters this admission. Creatinine stable. Warm and wet on exam today, creatinine stable - Recommend repeat lasix 40mg IV daily today and would concentrate IVAB volume as able - GDMT: recommend transition from metoprolol to Toprol xl tomorrow. Would add losartan 12.5mg daily when BP allows - Strict I/Os, daily weight, optimize lytes to keep K>4 and Mg>2 Paroxysmal atrial fibrillation: known history since 2001. RVR noted at OSH in the setting of MSSA bacteremia, septic shock. Initiated on amio gtt and transitioned to PO amio. - Currently in rate-controlled AF. - Continue rate control with BB and amiodarone - [id number] is 3, continue systemic AC with warfarin and heparin gtt bridge. Goal INR 2.5-3.5 - Ongoing supportive care of underlying illness, volume status - Maintain electrolytes for K>4, Mg>2 Other hospital problems Diverticulitis s/p partial colectomy: ?Crohn's disease on colonoscopy, on prednisone and PPI. Follows with outpatient GI Urethral stricture: s/p dilation by urology at OSH, on flomax Anxiety/depression: on ativan and duloxetine History of GIB: 04/2023 INTERVAL HISTORY/REVIEW OF SYSTEMS Over the last day, he had no acute events. Review of Systems Constitutional: Negative for fatigue. Respiratory: Positive for shortness of breath. Cardiovascular: Positive for leg swelling. Negative for chest pain. Gastrointestinal: Negative for nausea and vomiting. Neurological: Negative for dizziness and light-headedness. PHYSICAL EXAM BP 133/60 (BP Location: Left arm, BP Position: Sitting) Pulse 69 Temp 97.7 F (36.5 C) (Axillary) Resp 18 Ht 1.829 m (6') Comment: estimated Wt 98.5 kg (217 lb 3.2 oz) SpO2 100% BMI 29.46 kg/m Smoking Status Never Constitutional: Awake and in no distress. Chest: Respiratory effort is unlabored. Lungs are diminished in bases, on room air Cardiovascular: JVD appreciated. Normal rate & irregular rhythm; S1 variable, S2 normal. Exam reveals no gallop, no friction rub. +valve click heard throughout. Abdomen: Soft, non-tender, non-distended. +BS. Extremities: 2+ peripheral edema, stasis dermatitis. Radial and pedal pulses preserved. Neurological: Alert and oriented to person, place and time. Skin: Warm, dry. No cyanosis. Nails show no clubbing. CARDIOVASCULAR IMAGING/DATA Cardiac Catheterization 2001 ([facility]) CORONARY ANGIOGRAPHY - Left Coronary Artery: no angiographically definable disease - Right Coronary Artery: no angiographically definable disease {dominant) 24 hour telemetry (personally reviewed): AF rates 70-80s ADDITIONAL DATA REVIEWED Intake/Output Summary (Last 24 hours) at 06/10/2023 0822 Last data filed at 06/10/2023 0700 Gross per 24 hour Intake 2086.32 ml Output 4500 ml Net -2413.68 ml Temp: [97.5 F (36.4 C)-98.8 F (37.1 C)] 97.7 F (36.5 C) Pulse (Heart Rate): [63-73] 69 Resp Rate: [15-18] 18 BP: (110-133)/(55-73) 133/60 O2 Sat (%): [96 %-100 %] 100 % Oxygen Therapy O2 Sat (%): 100 % O2 Device: room air Body mass index is 29.46 kg/m . LABS Bun/Creat/Cl/CO2/Glucose: 21/0.91/104/26/87 (06/10 326) Na/K+/Phos/Mg/Ca: 138/3.9/--/1.8/-- (06/10 326) WBC/Hgb/Hct/Plts: --/--/--/287 (06/09 2018) No results found for: BNP Lab Results Component Value Date CHOLESTEROL 183 08/28/2001 CHOLESTEROL 183 08/28/2001 TRIG 121 08/28/2001 HDL 35 (L) 08/28/2001 CURRENT MEDICATIONS: AMIOdarone 200 mg Oral Daily ceFAZolin (ANCEF) 3 g in Sodium chloride 0.9%, with overfill 290 mL IV infusion 3 g Intravenous Q12HNS DULoxetine 60 mg Oral Daily gentamicin 60 mg Intravenous Q8HNS Metoprolol 50 mg Oral BID Pantoprazole 40 mg Oral Daily predniSONE 20 mg Oral Daily Tamsulosin HCl 0.4 mg Oral Daily Warfarin 6.5 mg Oral Daily early evening heparin 14 Units/kg/hr (06/10/23 1539) [id number] Score for Atrial Fibrillation Stroke Risk Age in Years: 75+ Sex: Male CHF History: No Hypertension History: Yes Stroke/TIA/Thromboembolism History: No Vascular Disease History: No Diabetes History: No [id number] Score: 3 Thank you for this consult. Please call with questions. We will continue to follow along. Plan of care developed in collaboration with attending pediatric anesthesiologist Dr. Potter. [facility] Consult Service Phone: [phone] [facility] Medicine Progress Note Patient: Markus Nava, : 1945, Impression / Plan Markus Nava is a 78 y.o. 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 MSSA bacteremia and endocarditis of prosthetic AV valve Initially with septic shock at OSH, now resolved. Found to have MSSA bacteremia. Prosthetic AV vegetation confirmed on OSH FER. - Continue cefazolin 3g q12h over 12 hours for 6 weeks and gentamicin 80mg q8h for a 2 week course. Per OSH records, rifampin was also considered but concerns for drug interaction with amiodarone and not yet started. ID said no rifampin needed at this time as well. - Consult ID gentamicin and cefazolin, opat pending. PICC needs placed. Patient hesitant about managing abx at home as he is not feeling like he can withstand administering himself abx he also does not what to go to a snf. Blood cultures drawn again today, conitnue to be positive from 06/06. - Consult cardiology and cardiothoracic surgery - Follow up OSH Bcx to ensure clearance of bacteremia Supratherapeutic INR - resolved Mechanical aortic valve present INR 3.8 on admission to OSH, 3.4 today per OSH records. INR 2.5 on admission here. Restart warfarin Atrial fibrillation CHADSVASC 3 (age, HTN). RVR at OSH, started on amiodarone. - Continue amiodarone 200 mg daily - Continue metoprolol 50mg BID - Telemetry - Cardiology consult as above History of GI bleed Diverticulitis s/p partial colectomy Suspected Crohn's disease History of diverticulitis s/p partial colectomy, but recently with GI bleed in Apr 2023. Colonoscopy with concern for Crohn's disease, discharged on steroid taper. - Continue pantoprazole 40 mg daily - Continue prednisone 20mg daily - Outpatient follow up with GI Urethral stricture s/p dilation Urology consulted and dilation performed at OSH, brown removed prior to transfer. - Continue flomax, monitor for signs of retention Anxiety - Continue ativan 0.5 mg po BID prn and duloxetine 60mg daily Leukocytosis - Likely due to known infection as above, continue to monitor Problem list reviewed at admission. Complexity. Any conditions listed below are present on admission unless otherwise specified. .Chronic Iron Deficiency Anemia - hold home iron supplementation in setting of acute infection Complexity. Any conditions listed below are present on admission unless otherwise specified. . DVT prophylaxis with heparin gtt Anticipated Disposition: home Code status is Full Code Interval History / Subjective Patient is contemplating what to do about the antibiotics neigher option is sounding good to him going [facility] abx makes him nervious and snf as well isn't ideal Objective Temp: [98 F (36.7 C)-98.8 F (37.1 C)] 98.8 F (37.1 C) Pulse (Heart Rate): [63-74] 66 Resp Rate: [15-18] 15 BP: (112-132)/(57-69) 112/69 O2 Sat (%): [96 %-100 %] 98 % Physical Exam Gen: A, A, NAD Neck : pearly lesion on the right neck , right neck line in place ENT: MMM Resp: CTA bilat, normal effort Cardio: RRR, normal S1, S2, No DADA GI: S/NT/ND, NABS Psych: Ox3, appropriate affect and cognition Data Review Na/K+/Phos/Mg/Ca: 137/4.2/--/1.9/-- (06/09 0037) Bun/Creat/Cl/CO2/Glucose: 23/0.93/104/26/100 (06/09 0037) Ptt/Pt/Inr: 101.7/--/-- (06/09 1257) Cxr pulm edema Images from the original note were not included. CARDIOLOGY CONSULT PROGRESS NOTE Cardiology consulted 06/06/2023 for 78y M with hx of aortic valve replacement now with MSSA bacteremia and AV endocarditis HPI I saw Mr. Markus Nava in follow-up on 06/09/2023. He is a 78 y.o. male with a history of streptococcal endocarditis of AV s/p AVR (1996) c/b graft dilation and aortic insufficiency s/p Bentall procedure (2001), AF, diverticulitis s/p partial colectomy with c/f Crohn's, anxiety and depression who initially presented to an OSH 06/02/23 with fevers and chills, found to have MSSA bacteremia and septic shock c/b AF with RVR, with FER revealing a vegetation on the aortic valve prompting tx to [facility] on 06/06/2023. 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 FER 06/05/23 showed AV freely mobile mass c/w vegetation measuring 1.1cm x0.7cm. Blood cultures NTD since 06/08/22, last positive on 06/06/22 - CTS Dr. Sabillon following, recommend completing AB course and follow-up echo in 4-6 weeks with outpatient CTS follow-up - ABs per ID - Recommend daily ECGs and continuous telemetry to monitor for high degree AV block - Consider dermatology consult for skin lesion on chin, concern this is the sourse of infection given patient reporting picking at the lesion regularly. Of note he was told by his oncologist friend that the lesion looked like basal cell carcinoma - Please set him up with his outpatient pediatric anesthesiologist in [place] to be seen within 1 month of discharge History of AVE s/p mechanical AVR: history of AVE 2/2 strep s/p AVR and reconstruction of RVOT using 29mm pulmonary homograft c/b graft dilation and AI s/p modified Bentall procedure with AVR and aortic root replacement using 25mm [employer] [place] and hemashield composite graft in 2001. - Home warfain on hold, continue systemic AC with heparin gtt. Would monitor closely for any evidence of septic emboli to brain given c/f hemorrhagic conversion while on AC. When warfarin resumed INR goal will be 2.5-3.5 given mechanical AV with risk factors (AF) Acute HFmrEF: TTE 06/02/23 showed LVEF 40-45% and FER 06/05/23 showed LVEF 50% in setting of sepsis and AVE and mild to moderate MR. - Net positive 1.9 Liters in the last 24 hours/net positive 2 Liters this admission. Creatinine stable. Warm and wet on exam today - Recommend cautious diuresis with lasix 20mg IV x1 today and would concentrate IVAB volume as able - GDMT: recommend transition from metoprolol to Toprol xl tomorrow. Would add losartan 12.5mg daily when BP allows - Strict I/Os, daily weight, optimize lytes to keep K>4 and Mg>2 Paroxysmal atrial fibrillation: known history since 2001. RVR noted at OSH in the setting of MSSA bacteremia, septic shock. Initiated on amio gtt and transitioned to PO amio. - Currently in rate-controlled AF. - Continue rate control with BB and amiodarone - [id number] is 3, home warfarin on hold currently on heparin gtt. - Ongoing supportive care of underlying illness, volume status - Maintain electrolytes for K>4, Mg>2 Other hospital problems Diverticulitis s/p partial colectomy: ?Crohn's disease on colonoscopy, on prednisone and PPI. Follows with outpatient GI Urethral stricture: s/p dilation by urology at OSH, on flomax Anxiety/depression: on ativan and duloxetine History of GIB: 04/2023 INTERVAL HISTORY/REVIEW OF SYSTEMS Over the last day, he had no acute events. Review of Systems Constitutional: Negative for fatigue. Respiratory: Positive for shortness of breath. Cardiovascular: Positive for leg swelling. Negative for chest pain. Gastrointestinal: Negative for nausea and vomiting. Neurological: Negative for dizziness and light-headedness. PHYSICAL EXAM BP 116/62 (BP Location: Left arm, BP Position: Sitting) Pulse 74 Temp 98.2 F (36.8 C) (Oral) Resp 16 Ht 1.829 m (6') Comment: estimated Wt 98.5 kg (217 lb 3.2 oz) SpO2 100% BMI 29.46 kg/m Smoking Status Never Constitutional: Awake and in no distress. Chest: Respiratory effort is unlabored. Lungs are diminished in bases, on room air Cardiovascular: JVD appreciated. Normal rate & irregular rhythm; S1 variable, S2 normal. Exam reveals no gallop, no friction rub. +valve click heard throughout. Abdomen: Soft, non-tender, non-distended. +BS. Extremities: 2+ peripheral edema, stasis dermatitis. Radial and pedal pulses preserved. Neurological: Alert and oriented to person, place and time. Skin: Warm, dry. No cyanosis. Nails show no clubbing. CARDIOVASCULAR IMAGING/DATA Cardiac Catheterization 2001 ([facility]) CORONARY ANGIOGRAPHY - Left Coronary Artery: no angiographically definable disease - Right Coronary Artery: no angiographically definable disease {dominant) 24 hour telemetry (personally reviewed): AF rates 70-80s ADDITIONAL DATA REVIEWED Intake/Output Summary (Last 24 hours) at 06/09/2023 0945 Last data filed at 06/09/2023 0900 Gross per 24 hour Intake 3046.98 ml Output 1075 ml Net 1971.98 ml Temp: [98 F (36.7 C)-99.3 F (37.4 C)] 98.2 F (36.8 C) Pulse (Heart Rate): [65-76] 74 Resp Rate: [14-18] 16 BP: (110-132)/(55-63) 116/62 O2 Sat (%): [96 %-100 %] 100 % Oxygen Therapy O2 Sat (%): 100 % O2 Device: room air Body mass index is 29.46 kg/m . LABS Bun/Creat/Cl/CO2/Glucose: 23/0.93/104/26/100 (06/09 0037) Na/K+/Phos/Mg/Ca: 137/4.2/--/1.9/-- (06/09 0037) No results found for: BNP Lab Results Component Value Date CHOLESTEROL 183 08/28/2001 CHOLESTEROL 183 08/28/2001 TRIG 121 08/28/2001 HDL 35 (L) 08/28/2001 CURRENT MEDICATIONS: AMIOdarone 200 mg Oral Daily ceFAZolin (ANCEF) 3 g in Sodium chloride 0.9%, with overfill 290 mL IV infusion 3 g Intravenous Q12HNS DULoxetine 60 mg Oral Daily gentamicin 60 mg Intravenous Q8HNS Metoprolol 50 mg Oral BID Pantoprazole 40 mg Oral Daily predniSONE 20 mg Oral Daily Tamsulosin HCl 0.4 mg Oral Daily heparin 15 Units/kg/hr (06/09/23 0647) [id number] Score for Atrial Fibrillation Stroke Risk Age in Years: 75+ Sex: Male CHF History: No Hypertension History: Yes Stroke/TIA/Thromboembolism History: No Vascular Disease History: No Diabetes History: No [id number] Score: 3 Thank you for this consult. Please call with questions. We will continue to follow along. Plan of care developed in collaboration with attending pediatric anesthesiologist Dr. Potter. CHEO [facility] Consult Service Phone: [phone] BRIEF NUTRITION NOTE: Current Diet Orders Procedures DIET HEART HEALTHY - 4 GM SODIUM Standing Status: Standing Number of Occurrences: 1 Pt with no significant nutrition changes over the past week. Tolerating diet with adequate po intake. No notable wt changes. 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 Basil Galindo DTR Pager: [phone] [facility] Medicine Progress Note Patient: Markus Nava, : 1945, Impression / Plan Markus Nava is a 78 y.o. 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 MSSA bacteremia and endocarditis of prosthetic AV valve Initially with septic shock at OSH, now resolved. Found to have MSSA bacteremia. Prosthetic AV vegetation confirmed on OSH FER. - Continue cefazolin 3g q12h over 12 hours for 6 weeks and gentamicin 80mg q8h for a 2 week course. Per OSH records, rifampin was also considered but concerns for drug interaction with amiodarone and not yet started - Consult ID gentamicin and cefazolin, opat pending. PICC needs placed. Patient hesitant about managing abx at home as he is not feeling like he can withstand administering himself abx he also does not what to go to a snf. Blood cultures drawn again today, conitnue to be positive from 06/06. - Consult cardiology and cardiothoracic surgery - Follow up OSH Bcx to ensure clearance of bacteremia Supratherapeutic INR - resolved Mechanical aortic valve present INR 3.8 on admission to OSH, 3.4 today per OSH records. INR 2.5 on admission here. - Continue holding warfarin, recheck INR in AM. Goal 2.5-3.5, if less than goal will start heparin gtt in case of any surgical interventions Atrial fibrillation CHADSVASC 3 (age, HTN). RVR at OSH, started on amiodarone. - Continue amiodarone 200 mg daily - Continue metoprolol 50mg BID - Telemetry - Cardiology consult as above History of GI bleed Diverticulitis s/p partial colectomy Suspected Crohn's disease History of diverticulitis s/p partial colectomy, but recently with GI bleed in Apr 2023. Colonoscopy with concern for Crohn's disease, discharged on steroid taper. - Continue pantoprazole 40 mg daily - Continue prednisone 20mg daily - Outpatient follow up with GI Urethral stricture s/p dilation Urology consulted and dilation performed at OSH, brown removed prior to transfer. - Continue flomax, monitor for signs of retention Anxiety - Continue ativan 0.5 mg po BID prn and duloxetine 60mg daily Leukocytosis - Likely due to known infection as above, continue to monitor Problem list reviewed at admission. Complexity. Any conditions listed below are present on admission unless otherwise specified. .Chronic Iron Deficiency Anemia - hold home iron supplementation in setting of acute infection Complexity. Any conditions listed below are present on admission unless otherwise specified. . DVT prophylaxis with heparin gtt Anticipated Disposition: home Code status is Full Code Interval History / Subjective Patient not able to administer himself abx, doesn't want to go to snf given his jobs. Objective Temp: [98 F (36.7 C)-99.3 F (37.4 C)] 98.9 F (37.2 C) Pulse (Heart Rate): [65-78] 65 Resp Rate: [14-22] 14 BP: (110-124)/(55-87) 110/55 O2 Sat (%): [90 %-100 %] 96 % Physical Exam Gen: A, A, NAD Neck : pearly lesion on the right neck , right neck line in place ENT: MMM Resp: CTA bilat, normal effort Cardio: RRR, normal S1, S2, No DADA GI: S/NT/ND, NABS Psych: Ox3, appropriate affect and cognition Data Review WBC/Hgb/Hct/Plts: 15.06/10.2/32.6/226 (06/08 110) Na/K+/Phos/Mg/Ca: 137/3.9/--/2.0/-- (06/08 110) Bun/Creat/Cl/CO2/Glucose: 20/0.92/103/25/116 (06/08 110) Ptt/Pt/Inr: 69.8/--/-- (06/08 1135) Cxr pulm edema Cardiac Surgery -- Progress Note We were asked to offer our opinion on the evaluation and treatment of Bio AV endocarditis. RECOMMENDATIONS: Due to patient's current condition, at the present time we recommend a completed course of antibiotics with repeat ECHO in 4-6 weeks (at completion of antibiotics as directed by ID) followed by outpatient cardiac surgery follow up with Dr. Sabillon. For Endocarditis patients -- please notify our service GELACIO if the patient develops any of the following: - acute/worsening heart block on EKG. - hemodynamic instability/cardiogenic shock +/- cardiac ischemia on EKG or evidence of heart failure. - evidence of recurrent SYSTEMIC embolization. - while persistent bacteremia can be an indication for surgery, every attempt is made to maximize antibiotic therapy prior to surgery unless one of the above becomes an issue. Should the patient have appropriate discharge plans in place, the patient may be discharged and return to see us in clinic for appropriate follow-up. Please contact our offices at [phone] to schedule. This patient was discussed with Dr. Titi Sabillon MD. We will sign off. Please call with any additional questions or concerns. Thank you. CHEO Perdue [facility] Cardiothoracic Surgery Inpatient Nurse Practitioner Phone #[phone] [facility] Coordination Note Patient received in handoff from case worker for potential homecare services. Referrals place in aidin, awaiting responses. Will continue to follow with case worker for plan of care. [facility] Home Health Following Physician Confirmation Following Physician:Louie Burns DO Physician Service: Primary Care Agreeable to Follow: Yes Date/Time of Call: 06/08/23 at 1630 Spoke with: Dunia Chung, [facility] RN Discharge Plan Expected Discharge Date: 06/12/2023 Referred Level of Care: Home Infusion/Home Health Care Barriers: Cultures, ID final recs, Accepting HHC/INF Current Referrals and Status CM met with patient to discuss discharge planning needs/home infusion. Patient initially upset and agitated with conversation. CM returned for further discussion after Medical Team reviewed plan of care with patient. Patient more agreeable to home infusion. CM contacted [facility] for assistance with referrals to home health/home infusion. CM will continue follow up and assist with discharge planning. Radha KEN Clinical Slubber Runner [facility] Department of Pharmacy Pharmacokinetics Progress Note Patient: Андрей Tidwell Room/Bed: 7010/A Assessment and Plan: Based upon drug level assessment and interpretation (steady state), I have changed the gentamicin dose and/or dosing interval to 60 mg IV every 8 hours to give a predicted trough of 0.8 g/mL. Next dose to start at 1400 on 06/08. A pharmacist will continue to follow and order drug levels and adjust dosing as clinically appropriate. I have modified the orders in IS to reflect the above plan. Gentamicin Regimen at Time of Level: Gentamicin 80 mg IV every 8 hours. Desired Therapeutic Peak Concentration: N/A for synergy Desired Therapeutic Trough Concentration: <1 g/mL Last Doses Administered: Dose: Date: Time: 80 mg 06/08 032 80mg 06/07 180 Gentamicin Levels: 1.1 g/mL drawn at 0111 on 06/08 (drawn 7 hours after previous dose) Most Recent Labs: WBC Count Date Value Ref Range Status 06/08/2023 7.81 3.73 - 10.10 K/uL Final BUN Date Value Ref Range Status 06/08/2023 87 (H) 7 - 25 mg/dL Final Creatinine Date Value Ref Range Status 06/08/2023 9.70 (H) 0.70 - 1.30 mg/dL Final I/O last 3 completed shifts: In: 8141 [P.O.:100; I.V.:383.5; Blood:357.5; Dialysis:7300] Out: 7300 Estimated Creatinine Clearance: 80 mL/min (by C-G formula based on SCr of 0.92 mg/dL). Please feel free to contact me with any further questions. Name: Haley Mahmood RPH Phone: [phone] Date/Time: 06/08/2023 11:46 AM Acute Occupational Therapy Evaluation Prior to Admission AM-PAC Score: PRIOR LEVEL AM-PAC Activity Raw Score: 24 Current AM-PAC score(s): CURRENT AM-PAC Activity Raw Score: 23 Based on the above AM-PAC score(s) and OT clinical judgment, discharge destination recommendation is: Home Pt was able to ambulate around the room and then walk 400 feet out the room without equipment nor SOB. Pt is at his baseline. Mobility equipment available at home: none used ADL equipment available at home: none Equipment recommendations for discharge: Current therapy frequency recommendation(s) in acute: no therapy warranted Precautions and Weightbearing Status: OT Existing Precautions/Restrictions: fall, cardiac Telemetry Patient Safety Communication Prior to Visit: Nursing Subjective: pt was alert and agreeable to therapy. 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 Level of Function Prior level ADL Overview: Independent with all ADLs Dominant Hand: Ambidextrous, Left Bed Mobility/Transfers: independent Ambulation Skills: independent Assistive Device: none used Level of Ambulation: community 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 IADL History IADLs: independent Primary Language: Portuguese Objective/Observation: Vitals/Vitals Responses to Treatment: Vitals HR (bpm) BP (mmHg) SpO2 (%) 83 122/87 O2 Device: room air Vision Screen Currently wearing corrective lenses: No Visual Impairments Observed?: No Speech Speech: no gross deficits noted Successful Methods (Communication Strategies): verbal speech Hearing Hearing: no gross deficits noted Cognition Overall Cognitive Status: Within Functional Limits Arousal/Alertness: Appropriate responses to stimuli Orientation Level: Oriented X4 Following Commands: Follows commands greater than 75% of the time Safety Judgment: Good awareness of safety precautions Deficits: Fully aware of deficits Memory: Appears intact ADLs: ADL Anticipated Performance (ADLs not directly observed this session): Eating, Grooming, Bathing, UE Dressing, LE Dressing, Toileting Eating Assistance: Independent Eating Location: chair Grooming Assistance: Independent Grooming Location: seated in chair Bathing Assistance: Modified independent Bathing Location: seated on shower chair UE Dressing Assistance: Independent UE Dressing Location: seated in chair LE Dressing Assistance: Supervision LE Dressing Location: seated in chair Toilet Assistance: Independent Toileting Location: toilet Extremity Assessments: RUE Assessment RUE Assessment: Within Functional Limits Right UE Assessment Details: 10/06 LUE Assessment LUE Assessment: Within Functional Limits Left UE Assessment Details: 10/06 Balance: Sitting Balance Static Sitting-Level of Assistance: Independent Dynamic Sitting-Level of Assistance: Independent Standing Balance Static Standing-Level of Assistance: Supervision Dynamic Standing-Level of Assistance: Supervision Neuro: Sensation Overall Sensation: Intact Proprioception Proprioception: intact Gross Coordination Gross Coordination: bilat UE intact Fine Motor Coordination Additional Documentation: (intact) Skin and Edema: Skin Integrity Skin Integrity Description: WFL Edema Edema: present Location: very mild bilat LEs Mobility Assessment: Transfer Assessment: Sit to Stand Transfer [place] Level: Sit->Stand: modified independence Skilled Rationale: Verbal cues Functional Mobility: Functional Mobility [place] Level: Functional Mobility/Gait: supervision Functional Mobility Skilled Rationale: Verbal cues CURRENT [facility] Daily Activity Inpatient Short Form Putting on/Taking Off Lower Body Clothin - A Little Assistance Bathin - No Assistance Toiletin - No Assistance Putting on/Taking Off Upper Body Clothin - No Assistance Groomin - No Assistance Eatin - No Assistance CURRENT AM-[facility] Activity Raw Score: 23 CURRENT AM-PAC Activity Functional Limitation/Modifier: 15.86% Currently Impaired in Daily Activity - CI PROJECTED AM-PAC Activity Raw Score: 24 PROJECTED AM-PAC Activity Functional Limitation/Modifier: 0.00% - Assessment & Plan: Patient was admitted for endocarditis and seen for therapy evaluation related to improved endurance and safety with OOB ADLs. Exam findings include impairments in: endurance. These impairments contribute to occupational performance limitations including ADL transfers. The following factors impact the plan of care: Patient will benefit from skilled occupational therapy to address these impairments, occupational performance limitations, and participation restrictions. Patient's rehab potential is: fair. Patient Instruction/Education this session: OT educated pt on the benefit of slower pace with OOB ADLs Plan for next session: Acute OT Goals Plan of Care by Karthik Downey OT at 06/08/2023 9:58 AM Version 1 of 1 Problem: OT - Endurance Goal: Endurance Functional Mobility - Patient will complete distance needed for common household mobility with no greater than 1 rest breaks for improved tolerance to safely complete I/ADL's Outcome: Ongoing OT treatment consisted of the following to work and progress towards the above goal(s): OT Evaluation and Treatment Time OT Evaluation (Low) Time Entry: Evaluating Therapist: Karthik Downey OT Additional Details: OT Co-Eval/Treatment Information Co-evaluation/co-treatment performed?: Yes, simultaneous billable skilled care was necessary due to medical complexity and functional deficits Other discipline: PT Rationale for need to co-eval/treat: coordination issues Co-treatment goal focus: endurance OT Evaluation Complexity Occupational Profile and Client History: Low - brief history Assessment of Occupational Performance: Low (1-3 performance deficits) Clinical Decision/Performance Deficits: Low (problem-focused assessments w/limited treatment options) Time In: 936 Time Out: 957 Total Visit Time: 21 minutes Total Treatment Time (skilled, billable minutes): 21 minutes Assisted by during session: PT PPE used during patient interaction: gloves, facemask Patient location at end of session: edge of bed Alarms on at end of session: RN aware Needs in reach. Upon discontinuation of Acute Care Occupational Therapy Services or patient discharge from the hospital this note represents the current Occupational Therapy Discharge Summary. Acute Physical Therapy Evaluation Prior to Admission [facility] score(s): PRIOR LEVEL AM-PAC Mobility Raw Score: 24 Current AM-PAC score(s): CURRENT AM-PAC Mobility Raw Score: 21 Based on the Gait speed, 5xSTS, AM-PAC score(s) and PT clinical judgment, patient is a good candidate for discharge to Home Barriers to discharge home: None Highest Level of activity achieved on this date Gait [place] Level: Gait: contact guard assist Ambulation Distance (Feet): (430ft) no AD, no LOB Mobility equipment available at home: none used ADL equipment available at home: none Equipment needed for discharge: none Current therapy frequency recommendation in acute: Therapy Frequency: no therapy warranted Activity Recommendations for outside of rehab session: Ambulate in hallways with RN or BRANDS EDITOR x3 daily Precautions and Weightbearing Status: Existing Precautions/Restrictions: fall Telemetry Patient Safety Communication Prior to Visit: Nursing Subjective: Pt awake , alert, agreeable. Pt reports that he has been walking in room and does not have any functional concerns Pain: General Pain Documentation (Adult, OB, Peds) Presence of Pain: denies pain/discomfort Presence of Pain Score (Auto-calculated): 0 DVPRS (Defense and Veterans Pain Rating Scale) DVPRS: Rest: 0- no pain DVPRS: Activity: 0- no pain Home Setting Residence: House Lives With: alone (girlfriend of 15 yrs - lives apart but sees eachother 2x week) First floor setup: walk-in shower Second floor setup: bedroom Number of stairs to enter home: 0 Number of stairs in home: 11 Stair Railings at Home: interior - present on left side (ascending) Mobility Equipment Available: none used ADL Equipment Available: none 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 No abnormal vitals changes occurred in response to activity. Pt's vitals stable at end of session. O2 Device: room air Cognition Overall Cognitive Status: Within Functional Limits Arousal/Alertness: Appropriate responses to stimuli Orientation Level: Oriented X4 Following Commands: Follows all commands and directions without difficulty Safety Judgment: Good awareness of safety precautions Awareness of Errors: Good awareness of errors made Deficits: Fully aware of deficits Vision Screen Currently wearing corrective lenses: No Speech Speech: no gross deficits noted Hearing Hearing: no gross deficits noted Extremity Assessments: RLE Assessment RLE Assessment: Within Functional Limits LLE Assessment LLE Assessment: Within Functional Limits Sensation Overall Sensation: Intact Skin Integrity Skin Integrity Description: WFL Edema Edema: none noted Mobility Assessment: Balance: Sitting Balance Static Sitting-Level of Assistance: Independent Dynamic Sitting-Level of Assistance: Independent Standing Balance Static Standing-Level of Assistance: Supervision Dynamic Standing-Level of Assistance: Supervision Skilled Rationale: Hand placement, Verbal cues, Cues for increased safety Standing Balance Skilled Intervention/Details: Cues for LUCILLE and Equal step length/ width Transfer Assessment: Sit to Stand Transfer [place] Level: Sit->Stand: supervision Skilled Rationale: Hand placement, Verbal cues, Cues for increased safety, Facilitate anterior shift Skilled Intervention/Details: Sit->Stand: cues for STS mechanics and increased safety Stand to Sit Transfer [place] Level: Stand->Sit: supervision Skilled Rationale: Hand placement, Verbal cues, Technique of activity Gait/Functional Mobility: Gait Assessment [place] Level: Gait: contact guard assist Ambulation Distance (Feet): (430ft) Gait Deviations Identified: decreased david, decreased step length Gait Skilled Rationale: verbal, upright posture Skilled Intervention/Details - Gait: Cues for equal step length Stairs: Stairs Assessment [place] Level: Stair Negotiation: not tested Outcome Score(s): Pt performed the 5x sit to stand test on this date and scored a 11 seconds, placing the patient as not a fall risk as seen in the chart below. Geriatrics Vestibular Disorders Parkinsons Disease > or = 12 seconds: further fall assessment needed1 > 15 seconds: fall risk3 > 16 seconds: fall risk4 > 15 seconds: recurrent falls2 1TieBijal landry, Eddie HBelgica, et al. (2008). 2BMehdi zimmer, Zack Farah, et al. (2010). 3BMehdi zimmer, [place] Vital, et al. (2008). 4DBj loyola, Bijal Solano, et al. (2011). Pt with average gait speed of 1.1 meters/sec on this date during testing, placing patient as able to perform community ambulation as seen in the chart below. Walking speed classification Household ambulation Limited Community ambulation Community ambulation [facility] safely 0 - 0.4 meter/sec 0.4 - 0.8 meter/sec 0.8 - 1.3 meter/sec >1.4 meter/sec Dylan Marc, Quinn Veloz (2015) CURRENT [facility] Basic Mobility Inpatient Short Form Turning over in bed: 4 - No Assistance Sitting/standing from chair: 4 - No Assistance Moving from lying on back to sittin - No Assistance Moving to and from bed to chair: 3 - A Little Assistance Walk in hospital room: 3 - A Little Assistance Climbing 3-5 steps with a railin - A Little Assistance CURRENT [facility] Mobility Raw Score: 21 CURRENT [facility] Mobility Functional Limitation/Modifier: 28.97% Currently Impaired in Basic Mobility - CJ Assessment & Plan: Patient was admitted for Endocarditis and seen for therapy evaluation related to Decreased functional tolerance. Exam findings include impairments in: Other (see comments) (None). These impairments contribute to functional limitations including (None). Patient tolerated session well with no adverse events. Pt does not require skilled therapy at this time Current clinical presentation is Stable - unchanging or predictable (Low). Patient history factors impacting Plan Of Care include medical status. Patient will benefit from skilled physical therapy to address these impairments, functional limitations, and participation restrictions and has good (no therapy warrented) rehab potential to achieve therapy goals. Planned Therapy Interventions: (none) Patient Instruction/Education this session: PT role, session goals Plan for next session: No therapy warrented Acute PT Goals Plan of Care by Ross Stone PT at 06/08/2023 9:37 AM Version 1 of 1 Problem: PT - General Goals Goal: Ambulation - Patient will ambulate 250 feet with independence and without an assistive device to improve ability to safely [facility] home [facility] community. Outcome: Adequate for Discharge PT treatment consisted of the following to progress towards the above goal(s): PT Evaluation and Treatment Time PT Evaluation (Low) Time Entry: 23 Evaluating Therapist: Ross Stone PT Additional Details: PT Co-Eval/Treatment Information Co-evaluation/co-treatment performed?: Yes, simultaneous billable skilled care was necessary due to medical complexity and functional deficits Other discipline: OT Rationale for need to co-eval/treat: postural control Co-treatment goal focus: balance, endurance Evaluation Complexity Components History: Moderate (1-2 personal factors and/or comorbidities) Body Systems Review: Low (Addressing 1-2 elements) Clinical Presentation: Stable - unchanging or predictable (Low) Clinical Decision Making: Low Time In: 0937 Time Out: 1000 Total Visit Time: 23 minutes Total Treatment Time (skilled, billable minutes): 23 minutes PPE used during patient interaction: facemask, gloves Patient location at end of session: edge of bed, RN aware, lines intact Alarms on at end of session: none, RN aware, none altered Needs in reach. Upon discontinuation of Acute Care Physical Therapy Services or patient discharge from the hospital this note represents the current Physical Therapy Discharge Summary. CARDIOLOGY CONSULT PROGRESS NOTE Cardiology consulted 06/06/2023 for 78y M with hx of aortic valve replacement now with MSSA bacteremia and AV endocarditis HPI I saw Mr. Markus Fitch Swarmer in follow-up on 06/08/2023. He is a 78 y.o. male with a history of streptococcal endocarditis of AV s/p AVR (1996) c/b graft dilation and aortic insufficiency s/p Bentall procedure (2001), AF, diverticulitis s/p partial colectomy with c/f Crohn's, anxiety and depression who initially presented to an OSH 06/02/23 with fevers and chills, found to have MSSA bacteremia and septic shock c/b AF with RVR, with FER revealing a vegetation on the aortic valve prompting tx to [facility] on 06/06/2023. 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 - ID consulted, on abx cefazolin and gentamicin - CT surgery consulted - Continuous telemetry, monitor closely for heart block - Monitoring blood cultures H/o streptococcal endocarditis of AV s/p AVR: 1996, modified Ross, c/b graft dilation and AI requiring modified Bentall procedure in 2001. Chronic AC on Warfarin at home. - Warfarin on hold in case of any surgical procedures, currently on heparin gtt. Goal INR 2.5-3.5 - Follow up timing tbd pending clinical course Paroxysmal atrial fibrillation: pt states he has a hx of AF since his mechanical valve was placed. Initially noted at OSH in the setting of MSSA bacteremia, septic shock. Initiated on amio gtt and transitioned to PO amio. Currently in rate-controlled AF. - [id number] is 3, on heparin gtt - Recommend uptitrating beta edith and discontinuing amiodarone to maintain HR <100 bpm - Ongoing supportive care of underlying illness, volume status - Maintain electrolytes for K>4, Mg>2 Other Problems Diverticulitis s/p partial colectomy ?Crohn's disease Urethral stricture s/p dilation Anxiety/depression INTERVAL HISTORY/REVIEW OF SYSTEMS Over the last day, he had no acute events. Sitting edge of bed. Ambulated multiple laps in the hallway. Feels well. Endorses a history of hallucinations but denies any hallucinations this hospitalization. Review of Systems Constitutional: Negative for fatigue. Respiratory: Negative for shortness of breath. Cardiovascular: Positive for leg swelling (at baseline). Negative for chest pain. Gastrointestinal: Negative for nausea and vomiting. Neurological: Negative for dizziness and light-headedness. PHYSICAL EXAM BP 122/87 (BP Location: Right arm, BP Position: Sitting) Pulse 78 Temp 98.8 F (37.1 C) (Oral) Resp 16 Ht 1.829 m (6') Comment: estimated Wt 98.5 kg (217 lb 3.2 oz) SpO2 90% BMI 29.46 kg/m Smoking Status Never Constitutional: Awake and in no distress. Chest: Respiratory effort is unlabored. Lungs are clear in the upper lobes and coarse in the bases posteriorly without rales, rhonchi or wheezes, room air Cardiovascular: No JVD appreciated. Normal rate & irregular rhythm; S1 variable, S2 normal. Exam reveals no gallop, no friction rub. +valve click heard throughout. Abdomen: Soft, non-tender, non-distended. +BS. Extremities: Trace-1+ peripheral edema, stasis dermatitis. Radial and pedal pulses preserved. Neurological: Alert and oriented to person, place and time. Skin: Warm, dry. No cyanosis. Nails show no clubbing. CARDIOVASCULAR IMAGING/DATA Cardiac Catheterization 2001 ([facility]) CORONARY ANGIOGRAPHY Left Coronary Artery: no angiographically definable disease Right Coronary Artery: no angiographically definable disease {dominant) 24 hour telemetry (personally reviewed): AF rates 70-80s ADDITIONAL DATA REVIEWED Intake/Output Summary (Last 24 hours) at 06/08/2023 1007 Last data filed at 06/08/2023 0900 Gross per 24 hour Intake 1903.43 ml Output 725 ml Net 1178.43 ml Temp: [98 F (36.7 C)-98.8 F (37.1 C)] 98.8 F (37.1 C) Pulse (Heart Rate): [67-81] 78 Resp Rate: [16-22] 16 BP: (115-124)/(59-87) 122/87 O2 Sat (%): [90 %-100 %] 90 % Oxygen Therapy O2 Sat (%): 90 % O2 Device: room air Body mass index is 29.46 kg/m . LABS Bun/Creat/Cl/CO2/Glucose: 20/0.92/103/25/116 (06/08 011) Na/K+/Phos/Mg/Ca: 137/3.9/--/2.0/-- (06/08 110) WBC/Hgb/Hct/Plts: 15.06/10.2/32.6/226 (06/08 110) No results found for: BNP Lab Results Component Value Date CHOLESTEROL 183 08/28/2001 CHOLESTEROL 183 08/28/2001 TRIG 121 08/28/2001 HDL 35 (L) 08/28/2001 CURRENT MEDICATIONS: AMIOdarone 200 mg Oral Daily ceFAZolin (ANCEF) 3 g in Sodium chloride 0.9%, with overfill 290 mL IV infusion 3 g Intravenous Q12HNS DULoxetine 60 mg Oral Daily gentamicin 80 mg Intravenous Q8HNS Metoprolol 50 mg Oral BID Pantoprazole 40 mg Oral Daily predniSONE 20 mg Oral Daily Tamsulosin HCl 0.4 mg Oral Daily heparin 14 Units/kg/hr (06/08/23904) [id number] Score for Atrial Fibrillation Stroke Risk Age in Years: 75+ Sex: Male CHF History: No Hypertension History: Yes Stroke/TIA/Thromboembolism History: No Vascular Disease History: No Diabetes History: No [id number] Score: 3 Thank you for this consult. Please call with questions. We will continue to follow along. [facility] Consult Service Phone: [phone] Images from the original note were not included. INFECTIOUS DISEASE FOLLOW-UP NOTE IDENTIFYING INFORMATION PATIENT: Markus Nava REFERRING PROVIDER: Heike Milan MD ADMIT DATE: 06/06/2023 TODAY'S DATE: 06/08/2023 REASON FOR CONSULT 78y M with hx of aortic valve replacement now with MSSA bacteremia and AV endocarditis ASSESSMENT Markus Nava is a 78 y.o. male with previous Streptococcal [place] AV endocarditis requiring Ross procedure (1996) complicated by Graft dilation and AI requiring Bentall procedure (2001) on Warfarin admitted with MSSA endocarditis of mechanical valve. MSSA bacteremia with prosthetic/mechanical AV endocarditis FER (06/05/2023) at [facility] with 1.1cm x 0.7cm mobile vegetation on subaortic valvular lesion. Blood cultures initially positive on 06/02/2023. Started on intermittent Cefazolin with Gentamicin prior to transfer to [facility] on 06/06/2023. History of previous Streptococcal [place] AV endocarditis requiring Ross procedure (1996) complicated by Graft dilation and AI requiring Bentall procedure (2001) Warfarin held and transitioned to Heparin gtt for anticoagulation. Leukocytosis with neutrophilic predominance Normocytic anemia Abnormal LFTs Estimated Creatinine Clearance: 80 mL/min (by C-G formula based on SCr of 0.92 mg/dL). High risk medication use: Aminoglycoside requiring close monitoring of renal function and if long-term use, monitoring for ototoxicity. RECOMMENDATIONS Diagnostics Recommend CVC removal as placed while bacteremic with line holiday, as able. Continue repeat blood cultures every 24-48 hours to monitor for clearance, including today, 06/08/2023. If persistent bacteremia, may need to consider repeat FER to assess for complications such as perivalvular abscess, etc. Would maintain on continuous telemetry to monitor for evidence of interval prolongation. Monitor closely for signs or symptoms of embolic disease. Therapeutics Cefazolin 3g every 12 hours as continuous infusion. Gentamicin 1mg/kg every 8 hours for synergy. Limited use of Rifampin given anticipated initiation of Warfarin again, which would preclude reaching therapeutic INR. Appreciate pharmacy assistance with dosing. ID team 1 will continue to follow. Please call aforementioned team with questions. Discussed with attending, Dr. Knott. Asha Bundy MD Infectious Disease Fellow, PGY-5 SUBJECTIVE/INTERVAL HISTORY Afebrile, hemodynamically stable, and on room air. Repeat blood cultures from 06/06/2023 with MSSA. Feeling well today, working with therapy. Has ambulated around the floor. Review of systems otherwise negative, unless noted above. INPATIENT MEDICATIONS AMIOdarone 200 mg Oral Daily ceFAZolin (ANCEF) 3 g in Sodium chloride 0.9%, with overfill 290 mL IV infusion 3 g Intravenous Q12HNS DULoxetine 60 mg Oral Daily gentamicin 80 mg Intravenous Q8HNS magnesium oxide 400 mg Oral Once Metoprolol 50 mg Oral BID Pantoprazole 40 mg Oral Daily Potassium chloride 40 mEq Oral Once predniSONE 20 mg Oral Daily Tamsulosin HCl 0.4 mg Oral Daily Allergies Allergies Allergen Reactions Alprazolam Other Reaction(s): Other Altered mental status-tolerates lorazepam PHYSICAL EXAM Temp: [98 F (36.7 C)-98.8 F (37.1 C)] 98 F (36.7 C) Pulse (Heart Rate): [67-81] 70 Resp Rate: [16-22] 18 BP: (115-124)/(59-73) 115/66 O2 Sat (%): [96 %-100 %] 98 % Physical Exam Constitutional: General: He is not in acute distress. HENT: Head: Atraumatic. Neck: Comments: CVC in right IJ Cardiovascular: Rate and Rhythm: Normal rate. Heart sounds: Murmur heard. Pulmonary: Effort: No respiratory distress. Breath sounds: Normal breath sounds. Abdominal: General: There is no distension. Palpations: Abdomen is soft. Tenderness: There is no abdominal tenderness. Musculoskeletal: General: No swelling or deformity. Comments: No spinal tenderness. Skin: General: Skin is warm. Neurological: General: No focal deficit present. Mental Status: He is alert. Psychiatric: Mood and Affect: Mood normal. Behavior: Behavior normal. LABS AND IMAGING Lab Results Component Value Date WBC 15.06 (H) 06/08/2023 HGB 10.2 (L) 06/08/2023 HCT 32.6 (L) 06/08/2023 PLATELET 226 06/08/2023 MCV 90.6 06/08/2023 Lab Results Component Value Date SODIUM 137 06/08/2023 POTASSIUM 3.9 06/08/2023 CHLORIDE 103 06/08/2023 CO2 25 06/08/2023 BUN 20 06/08/2023 CREATSERUM 0.92 06/08/2023 Microbiologic Data (personally reviewed): Blood (06/02/2023, [facility]): MSSA Blood (06/06/2023): MSSA (Line & Peripheral) Blood (06/08/2023): No growth to date Urine (06/02/2023): MSSA Imaging (personally reviewed): TTE (06/02/2023): Poor visualization of prosthetic AV. FER (06/05/2023): 1.1x0.7cm vegetation on prosthetic AV. Chest XR (06/06/2023): Pulmonary edema. Associated attestation - Vasile Knott MD, PhD - 06/08/2023 2:13 PM EST ID Staff: I have interviewed and examined patient independently (06-08-23) and have discussed case with the ID team. I agree with the findings and recommendations as documented above by Dr. Bundy. Vasile Knott MD, PhD Division of Infectious Diseases [facility] Hospital Medicine Progress Note Patient: Markus Nava, : 1945, Impression / Plan Markus Nava is a 78 y.o. 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 MSSA bacteremia and endocarditis of prosthetic AV valve Initially with septic shock at OSH, now resolved. Found to have MSSA bacteremia. Prosthetic AV vegetation confirmed on OSH FER. - Continue cefazolin 3g q12h over 12 hours for 6 weeks and gentamicin 80mg q8h for a 2 week course. Per OSH records, rifampin was also considered but concerns for drug interaction with amiodarone and not yet started - Consult ID - Consult cardiology and cardiothoracic surgery - Follow up OSH Bcx to ensure clearance of bacteremia Supratherapeutic INR - resolved Mechanical aortic valve present INR 3.8 on admission to OSH, 3.4 today per OSH records. INR 2.5 on admission here. - Continue holding warfarin, recheck INR in AM. Goal 2.5-3.5, if less than goal will start heparin gtt in case of any surgical interventions Atrial fibrillation CHADSVASC 3 (age, HTN). RVR at OSH, started on amiodarone. - Continue amiodarone 200 mg daily - Continue metoprolol 50mg BID - Telemetry - Cardiology consult as above History of GI bleed Diverticulitis s/p partial colectomy Suspected Crohn's disease History of diverticulitis s/p partial colectomy, but recently with GI bleed in Apr 2023. Colonoscopy with concern for Crohn's disease, discharged on steroid taper. - Continue pantoprazole 40 mg daily - Continue prednisone 20mg daily - Outpatient follow up with GI Urethral stricture s/p dilation Urology consulted and dilation performed at OSH, brown removed prior to transfer. - Continue flomax, monitor for signs of retention Anxiety - Continue ativan 0.5 mg po BID prn and duloxetine 60mg daily Leukocytosis - Likely due to known infection as above, continue to monitor Problem list reviewed at admission. Complexity. Any conditions listed below are present on admission unless otherwise specified. .Chronic Iron Deficiency Anemia - hold home iron supplementation in setting of acute infection Complexity. Any conditions listed below are present on admission unless otherwise specified. . DVT prophylaxis with heparin gtt Anticipated Disposition: home Code status is Full Code Interval History / Subjective Feels ok today thinks he got mssa from a right neck basal cell carcinoma ,denies rencent dental work Objective Temp: [98 F (36.7 C)-99 F (37.2 C)] 98.6 F (37 C) Pulse (Heart Rate): [77-100] 78 Resp Rate: [16-24] 22 BP: (117-151)/(59-71) 120/59 O2 Sat (%): [97 %-98 %] 97 % Weight: [98.5 kg (217 lb 3.2 oz)] 98.5 kg (217 lb 3.2 oz) Physical Exam Gen: A, A, NAD Neck : pearly lesion on the right neck , right neck line in place ENT: MMM Resp: CTA bilat, normal effort Cardio: RRR, normal S1, S2, No DADA GI: S/NT/ND, NABS Psych: Ox3, appropriate affect and cognition Data Review WBC/Hgb/Hct/Plts: 14.90/10.6/33.5/222 (06/07 1418) Na/K+/Phos/Mg/Ca: 140/3.5/--/1.7/-- (06/06 2213) Bun/Creat/Cl/CO2/Glucose: 16/0.95/103/28/94 (06/06 2213) Ptt/Pt/Inr: 39.9/23.3/2.1 (06/07 751-01/04 1419) Cxr pulm edema Discharge Planning Patient Assessment Admission Assessment Patient Assessment Completed: Initial Anticipated discharge disposition: Home with Infusion Reason for Admission: 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 : Patient Declines Legal Next of Kin Does the patient have a Guardian?: No Spouse: No (Thai Lin Significant Other [phone]) Adult Child(alberto), List All Adult Children: Yes Name and Contact information: Dominique Landon [phone] (patient is not and has one adult daughter) Would you like to add additional adult children?: No Reviewed and Updated in Demographics? : Yes Outpatient Providers Does patient have a primary care physician? : Yes When was the patient's last PCP visit?: < 30 days Does the patient follow any specialists?: Yes Reviewed and updated Care Team?: Yes Patient Care Team: Louie Burns DO as PCP - General (Family Medicine) Nidia Hernandez MD as PCP - Referring 1 (Gastroenterology) Environment/Caregivers Patient lives with: Alone Living Environment: House How many steps does the patient have to navigate to enter or inside the home? : 4 Does the patient have a first floor set-up with bed and bathroom?: No Patient Caregiving Responsibilities: Self Patient-identified caregiver/support network: Family, Friends Who does the patient identify as a teachable caregiver(s)?: Significant Other, Child(alberto) - Independent Services Does the patient use a home health or hospice agency?: No Current with dialysis?: No Does the patient use any community programs or services?: No Does patient use DME? : none Does the patient use oxygen?: No Does patient use medical supplies? : none Anticipated Changes Related to Illness/Injury? : No Initial ADLs Prior to Arrival What is the patient's baseline physical functioning prior to this acute illness?: independent What is the patient's baseline cognitive functioning prior to this acute illness?: independent Is the patient's baseline functioning changed by this acute illness? : No Concerns with patient being able to care for themselves at home? : No Are there therapy or specialists consults?: Yes Select consult type: PT, OT Does the patient's home require any home modifications for discharge? : No CM to recommend therapy or other consults? : No Medication Management Does the patient have prescription insurance coverage? : Yes Is the patient on Anticoagulation? : Yes Provider or Clinic that manages Anticoagulation?: [facility]/[employer] Inspector manages No Pharmacies Listed Agricultural Engineering Technologist Does the patient or workforce services representative express financial concerns? : No Employed?: Retired Coping/Stress Concerns about patient s coping and stress?: No Concerns about patient s caregiver s coping and stress?: Unable to Assess Values and Beliefs Cultural or samaritan practices that may impact discharge planning and/or medical care?: No Initial Discharge Planning Anticipated discharge disposition: Home with Infusion Transportation Available for Discharge: Private Vehicle, Family or Friend Anticipated DME: none Anticipated Services at Discharge: Outpatient follow up, Detention Patient Assessment Completed: Initial Expected Discharge Date: 06/12/2023 Discharge Planning Summary CM met with patient to complete initial assessment Anticipate discharge home with outpatient follow up vs home with home infusion and outpatient follow up Case Management Plan 1.Role of Clinical Slubber Runner explained while admitted to [facility] 2.PCP/Specialist/pharmacy information updated as needed 3. Patient demographic/address/emergency contact information verified 4.Clinical Slubber Runner will continue to follow with medical team to coordinate discharge planning. Radha KEN Clinical Slubber Runner [facility] Department of Pharmacy Admission Medication Reconciliation Note Patient: Markus Nava Room/Bed: 7032/A I have reviewed the patient's home medication list with the following sources Patient recall with prompting, Dispense Report, OARRs, and [facility] Review. I have also reviewed this list with the pharmacist. A call to the pharmacy was not needed because the information compiled from listed sources corroborates the patient/caregiver interview. I am recommending the following changes to the home medication list. These recommendations are considered preliminary until attestation of this note by a pharmacist. Added to Home Medications: None Deleted from Home Medications: None Edits to Home Medications: Lorazepam - Updated to pharmacy reported strength: 0.5 mg, previously listed as 1 mg. Other Comments: The patient's allergies have been reviewed with Patient. Added patient reported allergy: fentanyl; reaction: agitation, hallucinations Warfarin - Patient reports followed by [facility]. Patient has 1 mg and 5 mg tablets at home. Current patient reported directions are: Take 6.5 mg daily on Sun, Mon, Tues, Thurs, Fri, and Sat. Take 8 mg on Suns. Please feel free to contact me with any further questions. Name: Binu Chauhan Phone #: [phone] Date/Time: 06/07/2023 10:07 AM Time Spent: 25 minutes Associated attestation - Judson Parsons RPH - 06/07/2023 1:16 PM EST Department of Pharmacy Admission Medication Reconciliation Note Patient: Markus Nava Room/Bed: [facility] I have reviewed the home medication list with the Drawing Tender. The home medication list status is: complete. A call to the pharmacy was not needed because the information compiled from listed sources corroborates the patient/caregiver interview. All changes to the home medication list have been updated in IHIS. Updated [facility] Med List: Prior to Admission Medications Prescriptions DULoxetine [address] Particles capsule DR Sig: Take 1 capsule by mouth daily. LORazepam 0.5 MG tablet Sig: Take 1 tablet by mouth every 6 hours as needed for Anxiety. Metoprolol 50 MG tab regular release Sig: Take 1 tablet by mouth 2 times daily. Warfarin 1 MG tablet Sig: Take 1.5 tablets by mouth daily. Take 6.5 mg daily on Sun, Mon, Tues, Thurs, Fri, and Sat. Take 8 mg on . ferrous sulfate 325 (65 Fe) MG Tab DR tablet DR Sig: Take 1 tablet by mouth daily. melatonin capsule Sig: Take 1 capsule by mouth at bedtime. predniSONE 20 MG tablet Sig: Take 1 tablet by mouth daily. warfarin 5 MG tablet Sig: Take 1 tablet by mouth daily. Take 6.5 mg daily on Sun, Mon, Tues, Th, Fri, and Sat. Take 8 mg on . Facility-Administered Medications: None Please feel free to contact me with any further questions. Name: Judson Parsons [facility] Phone #: [phone] Date/Time: 06/07/2023 1:16 PM Occupational Therapy Attempt Note 06/07/2023 OT Therapy Completed: Attempted Attempted Reason: Patient is not medically optimized to tolerate therapy program Karthik Downey OT Time In: 0745 Time Out: 0745 Total Visit Time: 0 minutes Total Treatment Time (skilled, billable minutes): 0 minutes Physical Therapy Attempt Note 06/07/2023 PT Therapy Completed: Attempted Attempted Reason: Other (see comments) (Pending further medical work-up) PT will follow as medically appropriate. Ross Stone PT Time In: 0732 Time Out: 0732 Total Visit Time: 0 minutes Total Treatment Time (skilled, billable minutes): 0 minutes documented in this encounter [facility] 06-19-2023 Nurse Note Report called to [facility] 06-16-2023 Plan of care note Problem: Patient Care Overview Goal: Plan of Care Review Outcome: Ongoing Goal: Individualization & Mutuality Outcome: Ongoing Goal: Discharge Needs Assessment Outcome: Ongoing Goal: Interdisciplinary Rounds/Family Conf Outcome: Ongoing Problem: OT - Endurance Goal: Endurance Functional Mobility - Patient will complete distance needed for common household mobility with no greater than 1 rest breaks for improved tolerance to safely complete I/ADL's Outcome: Ongoing Problem: Fall/Trauma/Injury Risk (Adult) Goal: Fall/Trauma/Injury Risk: Absence of Trauma/Injury/Falls Description: Patient will demonstrate the desired outcomes. Outcome: Ongoing Goal: Knowledge of risk factors/behavior modification Description: Knowledge of risk factors/behavior modification for fall/injury prevention Outcome: Ongoing [facility] 06-16-2023 Consult note Formatting of is note might be different from the original. VASCULAR ACCESS NOTE: Consulted to check on PICC line that has been bleeding overnight. Per RN site has been bleeding and early this morning noted blood up to outside of dressing onto bed. Gauze and coban used to control bleeding and consult placed. Coban removed and dressing carefully removed as well. Old blood noted attached to old stat lock. Using sterile technique, Chlorhexadine used to clean site. Site still has some oozing of blood noted. Site allowed to dry, a new stat lock placed to secure the PICC, bio patch placed on top of the insertion site, a large surgicel placed on top of the bio patch and a CHG dressing used to cover the PICC. Another micropore dressing tightly placed across the new dressing for pressure. Cap removed, hub cleansed, line still fully functional, flushing and withdrawing with ease. Dressing signed and dated. Waited for few minutes and observed the site but no oozing noted after 15 minutes of observing RN informed and requested to page PICC team if new bleeding is noted. Please page #[phone] for issues, thanks [facility] 06-16-2023 Consult note Formatting of th is note might be different from the original. VASCULAR ACCESS NOTE: Consulted to check on PICC line that has been bleeding overnight. Per RN site has been bleeding and early this morning noted blood up to outside of dressing onto bed. Gauze and coban used to control bleeding and consult placed. Coban removed and dressing carefully removed as well. Old blood noted attached to old stat lock. Using sterile technique, Chlorhexadine used to clean site. Site still has some oozing of blood noted. Site allowed to dry, a new stat lock placed to secure the PICC, bio patch placed on top of the insertion site, a large surgicel placed on top of the bio patch and a CHG dressing used to cover the PICC. Another micropore dressing tightly placed across the new dressing for pressure. Cap removed, hub cleansed, line still fully functional, flushing and withdrawing with ease. Dressing signed and dated. Waited for few minutes and observed the site but no oozing noted after 15 minutes of observing RN informed and requested to page PICC team if new bleeding is noted. Please page #[phone] for issues, thanks Report of PICC Consultation and Evaluation: Patient seen and evaluated for PICC insertion using ultrasound guidance. ID band present, allergies and limb precautions verified with patient/nurse. Skin integrity within normal limits at time of insertion. No evidence of ecchymosis, infiltration, hematoma, edema, or any condition that would prevent safe insertion of a PICC with ultrasound. I have reviewed pertinent laboratory results. Lab Results Component Value Date WBC 15.06 (H) 06/08/2023 HGB 10.2 (L) 06/08/2023 HCT 32.6 (L) 06/08/2023 PLATELET 278 06/13/2023 MCV 90.6 06/08/2023 Lab Results Component Value Date CREATSERUM 1.11 06/14/2023 Lab Results Component Value Date INR 1.3 (H) 06/14/2023 INR 1.4 (H) 06/13/2023 INR 1.5 (H) 06/12/2023 PT 16.3 (H) 06/14/2023 PT 17.3 (H) 06/13/2023 PT 17.7 (H) 06/12/2023 Lab Results Component Value Date PTT 85.3 (H) 06/14/2023 Temp Readings from Last 1 Encounters: 06/14/23 98.6 F (37 C) (Oral) I have discussed the following issues with the ordering Clinician: MD Procedure explained to patient. Anatomical distortion to interfere with placement: nono Arm preference for venous access: Right Arm Patient is alert, cooperative, no distress, appears stated age Patient Teaching: Yes Family Teaching: No Rhine Protocol/Time Out Completed under Procedure Documentation Step 1: Pre-Procedure Verification Includes Consent Form, Order, Consult, H&P and/or Schedule is consistent with planned procedure: yes Reviewed Medication List/Allergy List: yes Relevant radiology images & scans and pathology & biopsy reports properly displayed and labeled reviewed by practitioner: yes Any required blood product, devices, implants, special equipment or supplies available: n/a Consent obtained with laterality defined: yes Relevant lab results available: Yes Step 2: Site Marking Includes Site Marking: yes Step 3: Time Out Includes Patient and Procedure (side/site marked when applicable),: yes Patient Positioning Correct?: Yes The need for antibiotics or fluids to be administered: yes Relevant images displayed (if applicable): yes Care of specimens (if applicable): N/A Rhine Protocol Verification Name of Practitioner attesting all steps of the Rhine Protocol have been completed: jovani Pager: [phone] Pre Procedure Relevant lab results available: Yes PROCEDURE DETAILS: PICC Insertion Procedure Using standard sterile technique access was obtained. Good blood return noted, catheter flushed easily with 10mls 0.9 NS per lumen. Statlock device used to secure PICC. Dressing applied. Pt denies pain at insertion site. PICC Line - Single Lumen 06/14/23 1132 basilic vein (medial side of arm), right 4 Fr (Active) 06/14/23 1132 Present On Admission : no Lumen 1: Lumen 2: Lumen 3: purple Location: basilic vein (medial side of arm), right Device/Lot Number: Regional Facilities Manager/Lot Number: [id number] Size/Length: 4 Fr Inserted Catheter Length (cm): 46 Total Length (cm): 46 Placement Verification: placement verified by x-ray Tip Termination: superior vena cava Guiding Device: ultrasound Indication/Daily Review of Necessity: Inserted By: Registered Nurse Unsuccessful Insertion Attempts: 0 Unsuccessful Attempt Location/Site: Pain Prevention/Patient Tolerance: intradermal injection Removal: Placement Over Guidewire: Additional Comments: Lumen 4: Lumen 5: Catheter Length Distal to Site (cm) 0 06/14/23 1100 Mid-Upper Arm Circumference (cm) 31 06/14/23 1100 Patient tolerated procedure well without any complications Extra insertion note if applicable: PICC inserted by jovani HAYNES and assisted by maura HAYNES [X] Antimicrobial foam disc/dressing. [] Unable to place Antimicrobial foam disc/drsg due to: N/A [X] Curos Caps applied [X] CXR ordered for PICC tip confirmation. Doctor Farnaz TORRES notified of procedure completion and will notify primary RN for PICC clearance and use. [] Obtained labs. ( labeled labs taken to in biohazard bag ) [X] Call light in reach. [X] Bed low and locked. [X] Tray table within reach. Education: Patient/Family informed to notify nurse of any complications including pain, redness, swelling, or leakage post insertion. Central Venous Catheter Insertion Checklist Was the line placed emergently (e.g., during Code Blue or trauma): N/A Before the procedure, did the aggregate conveyor operator Document informed consent. Yes Perform timeout. Yes 3. Stunt Person: If enter sterile field, uses sterile gown and gloves, cap, mask/eye protection. N/A 4. Prep site with ChloraPrep for 30 sec minimum (if femoral 120 sec minimum). Yes 5. Sterile technique to drape patient from head to toe. Yes During the procedure, did the aggregate conveyor operator Maintain a sterile field. Yes Obtain a qualified hydro station operator IF 3 unsuccessful sticks. (except if emergent); document the number of attempts. N/A Change gloves: if a catheter was exchanged over a guide wire before handling the new sterile catheter. N/A Account for the guidewire at all times. Yes After the procedure, did the aggregate conveyor operator Apply a sterile dressing immediately after insertion. Yes Document date and time on the dressing. Yes Perform hand hygiene. Yes All staff wore a mask until sterile dressing placed. Yes Dispose sharps immediately after the procedure. Yes I have completed the Central Venous Catheter Insertion Checklist. Consults Vascular Access Consult Note Arrived at bedside for PICC placement - patient eating dinner and prefers to have PICC placed morning of 06/14. Patient does have good vein options for PICC. Thank you for allowing our team to participate in the care of this patient. Vascular Access Team [phone] ConsultsVASCULAR ACCESS NOTE: Thank you for your referral to the Vascular Access Team. Consulted for placement of: [] PIV [] Midline [x] PICC [] Arms assessed for device placement, viable vessels identified: No device placed due to: [x] Awaiting final recommendations from ID [] Awaiting approval from nephrology in the presence of CKD 3 or higher [x] Awaiting patient to have blood culture clearance [] Awaiting TPN approval [] Already has adequate access for therapies prescribed [] No viable veins (see description below) [] Patient refused [] Both arms found to have contraindications for line placement [] Continued malposition despite multiple attempts [] Accessed vein successfully, but PICC catheter would not advance [] Patient unable to give consent, no POA/unable to reach POA Additional note: PICC pager [phone] PIV pager [phone] Associated Order(s): IP CONSULT TO DERMATOLOGY Assessment and Plan [place] shiny plaque with hemorrhagic crust and dilated telangiectasias on right neck - This is consistent with a basal cell carcinoma. Basal cell carcinoma is treated in the outpatient setting with wide local excision vs. Mohs surgery -It is imperative that he follows up with a [employer] member once discharged for definitive treatment. Offered patient follow up with [facility] derm, but he prefers to establish with a [employer] member closer to home. If he is unable to find a [employer] member closer to home, he should call [phone] to schedule an appointment with [facility] dermatology. robby you for allowing us to participate in the care of this patient. Our consult team will sign off today, 06/10/2023. Please contact the dermatology resident electrical controls engineer if you have any further questions. Haley Kenyon MD Dermatology Resident Consult Request neck lesion concern for basal cell carcinoma Requesting service: [facility] History of Present Illness. Patient is a 78 y.o. 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 Dermatology evaluation was requested for suspected NMSC on the neck. Duration/First noticed: year Location: right neck Severity: n/a Associated symptoms: non healing Previous Treatments: none Additional Summarized Information: Patient lives in [place] and would like to establish with a [employer] member closer to his home for outpatient care. This lesion has not previously been evaluated by dermatology Past Medical History No past medical history on file. Allergies (Medicines reviewed in list at bottom). Markus Nava is is allergic to alprazolam. Family History: family history is not on file. Social history: Social History Socioeconomic History Marital status: Tobacco Use Smoking status: Never Passive exposure: Never Smokeless tobacco: Never Substance and Sexual Activity Alcohol use: Never Drug use: Never Social Determinants of Health Food Insecurity: No Food Insecurity (06/06/2023) Hunger Vital Sign Worried About Running Out of Food in the Last Year: Never true Ran Out of Food in the Last Year: Never true Transportation Needs: No Transportation Needs (06/06/2023) PRAPARE - Transportation Lack of Transportation (Medical): No Lack of Transportation (Non-Medical): No Intimate Partner Violence: Not At Risk (06/06/2023) Humiliation, Afraid, Rape, and Kick questionnaire Fear of Current or Ex-Partner: No Emotionally Abused: No Physically Abused: No Sexually Abused: No Housing Stability: Low Risk (06/06/2023) Housing Stability Vital Sign Unable to Pay for Housing in the Last Year: No Number of Places Lived in the Last Year: 1 Unstable Housing in the Last Year: No Review of Systems Full ROS reviewed in admission H&P dated 06/06/2023 9:34 PM. Additional dermatologic ROS items see H&P. Vitals: Temp: [97.5 F (36.4 C)-98.8 F (37.1 C)] 98.8 F (37.1 C) Pulse (Heart Rate): [64-79] 64 Resp Rate: [16-18] 18 BP: (110-133)/(55-73) 116/65 O2 Sat (%): [95 %-100 %] 95 % Physical Exam: WD, WN, NAD. Normal mood and affect. Exam included Check all areas examined: []Scalp []Face []Lips []Eyelids, conjunctiva [x]Neck []Back []Chest []Abd []Buttocks []Genitalia []R arm []L arm []R leg []L leg []Digits, nails []Oropharynx []Lymph []Periph Vascular All normal except: [place] shiny plaque with hemorrhagic crust and dilated telangiectasias on right neck Relevant Labs/Imaging/Pathology -none Current Medications Current Facility-Administered Medications Medication Dose Route Frequency Provider Last Rate Last Admin Acetaminophen (TYLENOL) tablet 650 mg 650 mg Oral Q6H PRN Katiana Cabrera MD 650 mg at 06/06/23 2329 AMIOdarone (PACERONE) tablet 200 mg 200 mg Oral Daily Katiana Cabrera MD 200 mg at 06/10/23 0742 ceFAZolin (ANCEF) 3 g in Sodium chloride 0.9%, with overfill 290 mL IV infusion 3 g Intravenous Q12HNS Candis aLmas DO 24.2 mL/hr at 06/10/23 0745 3 g at 06/10/23 0745 DULoxetine (CYMBALTA) capsule DR 60 mg 60 mg Oral Daily Katiana Cabrera MD 60 mg at 06/10/23 0742 furOSEmide (LASIX) injection 40 mg 40 mg Intravenous Q12H Heike Milan MD 40 mg at 06/10/23 1207 [START ON 06/11/2023] Gentamicin (GARAMYCIN) 60 mg in Sodium chloride 0.9%, with overfill 111.5 mL (total volume) IVPB 60 mg Intravenous Q12HNS Kelvin Pitts, [facility] Heparin 25,000 units in dextrose 5% 250 mL premix infusion 0-30 Units/kg/hr (Dosing Weight) Intravenous Continuous Heike Milan MD 14.8 mL/hr at 06/10/23 1410 15 Units/kg/hr at 06/10/23 1410 LORazepam (ATIVAN) tablet 0.5 mg 0.5 mg Oral BID PRN Katiana Cabrera MD 0.5 mg at 06/10/23 0742 magnesium oxide (MAG-OX) tablet 800 mg 800 mg Oral As directed PRN Katiana Cabrera MD 800 mg at 06/10/23 0633 Or magnesium oxide (MAG-OX) tablet 800 mg 800 mg Per NG tube As directed PRN Katiana Cabrera MD Or Magnesium sulfate 4 g in sterile water 50 ml premix IVPB 4 g Intravenous As directed PRN Katiana Cabrera MD Melatonin tablet 6 mg 6 mg Oral QHS PRN Katiana Cabrera MD 6 mg at 06/08/23 2311 Metoprolol (LOPRESSOR) tablet 50 mg 50 mg Oral BID Katiana Cabrera MD 50 mg at 06/10/23 0742 Ondansetron 4mg/2ml (ZOFRAN) injection 4 mg 4 mg Intravenous Q6H PRN Katiana Cabrera MD Or Ondansetron (ZOFRAN) tablet 4 mg 4 mg Oral Q6H PRN Katiana Cabrera MD Pantoprazole (PROTONIX) tablet DR 40 mg 40 mg Oral Daily Katiana Cabrera MD 40 mg at 06/10/23 0742 Potassium chloride (K-DUR) tablet ER 40-60 mEq 40-60 mEq Oral As directed PRN Katiana Cabrera MD 40 mEq at 06/10/23 0633 Or potassium bicarbonate (EFFER-K) effervescent tablet 25 mEq 25 mEq Per NG tube As directed PRN Katiana Cabrera MD predniSONE (DELTASONE) tablet 20 mg 20 mg Oral Daily Katiana Cabrera MD 20 mg at 06/10/23 0742 Sodium chloride 0.9% IV solution 250 mL 250 mL Intravenous PRN Katiana Cabrera MD Tamsulosin HCl (FLOMAX) capsule 0.4 mg 0.4 mg Oral Daily Katiana Cabrera MD 0.4 mg at 06/10/23 0742 [Held by provider] warfarin (COUMADIN) tablet 6.5 mg 6.5 mg Oral Daily early evening Heike Milan MD 6.5 mg at 06/09/23 2203 Associated attestation - Lance Shepard MD - 06/11/2023 10:02 PM EST Patient was seen and examined with Dr. Kenyon; I saw and personally examined the patient on 06/10/23. I also discussed the findings and therapeutic plan with Dr. Kenyon, reviewed the entirety of the note and agree with the history, physical examination, and medical decisions as outlined. We are consulted for a lesion on the neck. It has the clinical appearance fairly typical of basal cell carcinoma. We offered outpt followup with us at [facility] for excision but pt declines and would prefer to be treated closer to home. 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 Lance Shepard MD Dermatology Associated Order(s): IP CONSULT TO INFECTIOUS DISEASE IP CONSULT TO INFECTIOUS DISEASE Consult performed by: Isidro Jimenez MD Consult ordered by: Katiana Cabrera MD INFECTIOUS DISEASE CONSULT NOTE IDENTIFYING INFORMATION PATIENT: Markus Nava REFERRING PROVIDER: Heike Milan MD ADMIT DATE: 06/06/2023 TODAY'S DATE: 06/07/2023 CHIEF COMPLAINT Fevers REASON FOR CONSULT 78 yo M with Hx of aortic valve replacement now with MSSA bacteremia and AV endocarditis ASSESSMENT Markus Nava is a 78 y.o. 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 He denies any recent skin or soft tissue infections. He does not have a history of any hardware or prosthetics other than his AV and PV. Would plan for 6 week course of cefazolin and 2 week course of gentamicin, although will defer starting rifampin at this time given his need for anticoagulation with warfarin. Suspect he will also need lifelong antibiotic prophylaxis once he completes treatment. Hx strep [place] AV endocarditis s/p Ross procedure (1996) c/b graft dilation and aortic insufficiency requiring modified Bentall procedure (2001) Hx diverticulitis s/p proctosigmoidectomy (2016) Hx C diff colitis: reported fully treated at OSH. Recently completed 10-day course of PO vanc for prophylaxis after being started on steroid taper for concern for possible IBD. He denies diarrhea currently and had negative testing at OSH prior to transfer. RECOMMENDATIONS Diagnostics Agree with cardiac surgery evaluation for possible intervention Repeat blood cultures daily for 3 days to ensure durable clearance Therapeutics Transition cefazolin from intermittent to continuous dosing 3g q12h over 12h for anticipated 6 week course Continue gentamicin 80 mg q8h for 2 week course No need for rifampin at this time as patient will likely need to resume warfarin dosing in the future and this would likely make it very difficult for him to achieve therapeutic INR Isolation: none ID team 1 will continue to follow. Please call aforementioned team with questions. Discussed with attending, Dr. Knott. Isidro Jimenez MD Internal Medicine Resident, PGY-2 HISTORY OF PRESENT ILLNESS Markus Nava is a 78 y.o. male with a past medical history of streptococcal endocarditis of the AV requiring AV and PV replacement in 1996 c/b graft dilation and aortic insufficiency requiring modified Bentall procedure in 2021, atrial fibrillation, diverticulitis s/p colectomy (now with c/f Crohn's), anxiety, and depression who is transferred from OSH for MSSA endocarditis of mechanical valve. Infectious disease is consulted for management recommendations. Patient was admitted to [facility] 06/02/23-06/06/23 after presenting with fevers (Tmax 103F at home) and rigors. Denied abdominal pain, vomiting, diarrhea, dysuria, rash, cough at the time of initial presentation. He was febrile on arrival to 103F and initially thought to have a viral syndrome as his girlfriend had recently been ill as well. CXR, UA, covid and flu negative. Then found to have MSSA bacteremia with 2/2 blood cultures positive on 06/02. Urine cultures positive for staph aureus, reportedly with low colony count, so this was attributed to seeding from the bacteremia. He was started on cefazolin and gentamicin. His hospital course was complicated by septic shock requiring levophed and stress dose steroids, as well as afib with RVR requiring amiodarone gtt. FER 06/06/23 showed an AV vegetation measuring 1.1 x 0.7 cm that was freely mobile. ID and cardiology were consulted and decision was made to transfer to [facility] on 06/[address] surgery evaluation. Per his discharge summary from [facility], a repeat blood culture drawn from a line on 06/03 had no growth in 48 hours. On arrival, patient afebrile and hemodynamically stable off pressors. Chem within normal limits. INR initially 2.5, now 2.1. CBC with WBC 16.38, Hgb 11.5, plt 250. Repeat blood cultures 06/06 pending. He is currently on cefazolin and gentamicin. Cardiac surgery has been consulted. Today patient reports feeling better and states his fevers and rigors have resolved. He is wary about the possibility of surgery, which he would like to avoid if at all possible. Denies any recent infections, rashes, wounds. Of note, patient also had recent hospitalization at [facility] for lower GI bleed from 04/25/23-05/04/23. Colonoscopy 04/27/23 showed patchy moderate mucosal changes in the transverse colon, hepatic flexure, ascending colon, cecum, appendiceal orifice, and ileocecal valve secondary to colitis. Biopsy showed focal acute enteritis in the ileum, focal acute colitis in the cecum, and focal acute colitis from random biopsy in the colon. There was concern for possible new diagnosis of Crohn's disease, and he was started on solumedrol and discharged on PO vanc for c diff ppx as he had recently completed treatment for c diff colitis. REVIEW OF SYSTEMS A complete review of systems was performed and otherwise negative unless noted in HPI. PAST MEDICAL, SURGICAL, FAMILY, and SOCIAL HISTORY No past medical history on file. No past surgical history on file. No family history on file. Social History Socioeconomic History Marital status: Social Determinants of Health Food Insecurity: No Food Insecurity (06/06/2023) Hunger Vital Sign Worried About Running Out of Food in the Last Year: Never true Ran Out of Food in the Last Year: Never true Transportation Needs: No Transportation Needs (06/06/2023) PRAPARE - Transportation Lack of Transportation (Medical): No Lack of Transportation (Non-Medical): No Intimate Partner Violence: Not At Risk (06/06/2023) Humiliation, Afraid, Rape, and Kick questionnaire Fear of Current or Ex-Partner: No Emotionally Abused: No Physically Abused: No Sexually Abused: No Housing Stability: Low Risk (06/06/2023) Housing Stability Vital Sign Unable to Pay for Housing in the Last Year: No Number of Places Lived in the Last Year: 1 Unstable Housing in the Last Year: No INPATIENT MEDICATIONS AMIOdarone 200 mg Oral Daily ceFAZolin 2 g Intravenous Q8HNS DULoxetine 60 mg Oral Daily gentamicin 80 mg Intravenous Q8HNS Magnesium sulfate Metoprolol 50 mg Oral BID Pantoprazole 40 mg Oral Daily predniSONE 20 mg Oral Daily Tamsulosin HCl 0.4 mg Oral Daily Allergies Allergies Allergen Reactions Alprazolam Other Reaction(s): Other Altered mental status-tolerates lorazepam PHYSICAL EXAM Temp: [98 F (36.7 C)-99 F (37.2 C)] 98 F (36.7 C) Pulse (Heart Rate): [77-100] 83 Resp Rate: [17-24] 20 BP: (117-151)/(67-71) 117/67 O2 Sat (%): [97 %-98 %] 97 % Weight: [98.5 kg (217 lb 3.2 oz)] 98.5 kg (217 lb 3.2 oz) Physical Exam Vitals reviewed. Constitutional: General: He is not in acute distress. Appearance: He is not toxic-appearing. HENT: Mouth/Throat: Mouth: Mucous membranes are moist. Pharynx: Oropharynx is clear. Eyes: Extraocular Movements: Extraocular movements intact. Conjunctiva/sclera: Conjunctivae normal. Pupils: Pupils are equal, round, and reactive to light. Cardiovascular: Rate and Rhythm: Normal rate. Rhythm irregular. Pulses: Normal pulses. Comments: Mechanical click Pulmonary: Effort: Pulmonary effort is normal. Comments: Mildly diminished at the bases bilaterally Abdominal: General: Abdomen is flat. Bowel sounds are normal. Palpations: Abdomen is soft. Musculoskeletal: General: Normal range of motion. Cervical back: Normal range of motion and neck supple. Right lower leg: Edema present. Left lower leg: Edema present. Skin: General: Skin is warm and dry. Neurological: General: No focal deficit present. Mental Status: He is alert and oriented to person, place, and time. Psychiatric: Mood and Affect: Mood normal. Behavior: Behavior normal. LABS AND IMAGING Lab Results Component Value Date WBC 16.38 (H) 06/06/2023 HGB 11.5 (L) 06/06/2023 HCT 37.1 (L) 06/06/2023 PLATELET 250 06/06/2023 MCV 90.9 06/06/2023 Lab Results Component Value Date SODIUM 140 06/06/2023 POTASSIUM 3.5 06/06/2023 CHLORIDE 103 06/06/2023 CO2 28 06/06/2023 BUN 16 06/06/2023 CREATSERUM 0.95 06/06/2023 Microbiologic Data (personally reviewed): Blood cultures (2 peripheral) 06/06/23: pending Imaging (personally reviewed): CXR 06/06/23: RIJ CVC in place, no complication. Pulmonary edema. Associated attestation - Vasile Knott MD, PhD - 06/07/2023 5:00 PM EST ID Staff: I have interviewed and examined patient independently (06-07-23) and have discussed case with the ID team. I agree with the findings and recommendations as documented above by Dr. Jimenez. Vasile Knott MD, PhD Division of Infectious Diseases [facility] Associated Order(s): IP CONSULT TO SURGERY - CARDIAC CARDIAC SURGERY CONSULT NOTE Reason for Consult: We were asked by Dr. Heike Milan MD to see Markus Nava and offer our opinion on the evaluation and treatment of bioprosthetic aortic valve endocarditis. Mr. Nava is a 78 y.o. 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 He was initially admitted to [facility] 06/02/23-06/06/23 with fevers and chills. He was found to have MSSA bacteremia and septic shock requiring levophed and stress dose steroids. He also had afib RVR and was started on an amiodarone gtt. 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 He was then transferred to [facility] for further management and surgical evaluation. We are asked to evaluate for surgical aortic valve replacement. Patient denies chest pain, dyspnea, dizziness, syncope, change in bowel habits. He does endorse chronic neck, shoulder, and back pain and chronic BLE edema. Of note, patient does not want a third sternotomy Social:former smoker, rarely drinks Caregiver Support:girlfriend- Thai, adult children Skin: no rashes or lesions Urinary Symptoms:none Nickel Allergy: YES(DEF)/NO: No REVIEW OF SYSTEMS Full review of systems performed. All others are negative except as indicated in HPI. RELEVANT INFORMATION No past medical history on file. No past surgical history on file. No family history on file. Social History has no history on file for tobacco use, alcohol use, and drug use. Social History Tobacco Use Smoking Status Not on file Smokeless Tobacco Not on file Social History Substance and Sexual Activity Alcohol Use None Allergies Allergies Allergen Reactions Alprazolam Other Reaction(s): Other Altered mental status-tolerates lorazepam Current Medications Scheduled Meds: AMIOdarone 200 mg Oral Daily ceFAZolin 2 g Intravenous Q8HNS DULoxetine 60 mg Oral Daily gentamicin 80 mg Intravenous Q8HNS Magnesium sulfate Metoprolol 50 mg Oral BID Pantoprazole 40 mg Oral Daily predniSONE 20 mg Oral Daily Tamsulosin HCl 0.4 mg Oral Daily Continuous Infusions: PRN Meds:Acetaminophen, LORazepam, magnesium oxide OR magnesium oxide OR magnesium sulfate, Magnesium sulfate, Melatonin, Ondansetron 4mg/2ml OR Ondansetron, Potassium chloride OR potassium bicarbonate, Sodium chloride 0.9% DIAGNOSTIC RESULTS Heart Catheterization None available Echocardiogram FER OSH 06/06/2023: EF 50%, normal LV size,, normal RV size and systolic function, mild MV insufficiency, mild TV insufficiency, AV vegetation of the non coronary cusps measuring 1.1 cm x 0.7 cm freely mobile, stable appearing mechanical AV apparatus Imaging N/a Labs: Lab Results Component Value Date WBC 16.38 (H) 06/06/2023 HGB 11.5 (L) 06/06/2023 PLATELET 250 06/06/2023 PTT 41.9 (H) 06/06/2023 INR 2.5 (H) 06/06/2023 SODIUM 140 06/06/2023 POTASSIUM 3.5 06/06/2023 CHLORIDE 103 06/06/2023 CO2 28 06/06/2023 BUN 16 06/06/2023 CALCIUM 8.6 12/24/2004 MAGNESIUM 1.7 06/06/2023 PHOSPHORUS 3.1 12/24/2004 AST 26 11/28/2004 GGT 114 (H) 11/28/2004 ALKPHOS 128 (H) 11/28/2004 BILITOTAL 1.2 11/28/2004 BILIDIRECT 0.1 11/28/2004 ALBUMIN 3.4 11/21/2004 Lab Results Component Value Date CREATSERUM 0.95 06/06/2023 PHYSICAL EXAM Physical Exam Vital Signs (24hrs): Blood pressure 117/67, pulse 83, temperature 98 F (36.7 C), temperature source Oral, resp. rate 20, height 1.829 m (6'), weight 98.5 kg (217 lb 3.2 oz), SpO2 97 %. Pulmonary/Cardiac Hemodynamics Pulse (Heart Rate): 83 Body mass index is 29.46 kg/m . Intake/Output Summary (Last 24 hours) at 06/07/2023 0838 Last data filed at 06/07/2023 0800 Gross per 24 hour Intake 185.74 ml Output 1000 ml Net -814.26 ml Wt Readings from Last 3 Encounters: 06/06/23 98.5 kg (217 lb 3.2 oz) General appearance: alert, cooperative, appears stated age Lungs: clear to auscultation bilaterally Heart: irregularly irregular rhythm Abdomen: soft and non tender, non distended, noted to have abdominal hernia just superior to umbilicus as well as scar from prior open inguinal hernia repair and colon resection Extremities: 2+ BLE edema , Normal ROM. Pulses: 2+ and symmetric Skin: Skin color, texture, turgor normal. No rashes or lesions Neurologic: Grossly normal Psych: appropriate mood and affect for clinical situation ASSESSMENT/PLAN Markus Nava is a 78 y.o. year old male with the following hospital problems: MSSA bacteremia and endocarditis of prosthetic AV valve Initially with septic shock at OSH, now resolved. Found to have MSSA bacteremia. Prosthetic AV vegetation confirmed on OSH FER. - Continue cefazolin 2g q8h and gentamicin 60mg q8h. Per OSH records, rifampin was also considered but concerns for drug interaction with amiodarone and not yet started - Consult ID - Consult cardiology and cardiothoracic surgery - Follow up OSH Bcx to ensure clearance of bacteremia Supratherapeutic INR - resolved Mechanical aortic valve present INR 3.8 on admission to OSH, 3.4 today per OSH records. INR 2.5 on admission here. - Continue holding warfarin, recheck INR in AM. Goal 2.5-3.5, if less than goal will start heparin gtt in case of any surgical interventions Atrial fibrillation CHADSVASC 3 (age, HTN). RVR at OSH, started on amiodarone. - Continue amiodarone 200 mg daily - Continue metoprolol 50mg BID - Telemetry - Cardiology consult as above History of GI bleed Diverticulitis s/p partial colectomy Suspected Crohn's disease History of diverticulitis s/p partial colectomy, but recently with GI bleed in Apr 2023. Colonoscopy with concern for Crohn's disease, discharged on steroid taper. - Continue pantoprazole 40 mg daily - Continue prednisone 20mg daily - Outpatient follow up with GI Urethral stricture s/p dilation Urology consulted and dilation performed at OSH, brown removed prior to transfer. - Continue flomax, monitor for signs of retention Anxiety - Continue ativan 0.5 mg po BID prn and duloxetine 60mg daily Leukocytosis - Likely due to known infection as above, continue to monitor Complexity RECOMMENDATIONS: Patient and plan to be discussed with Dr. Kuldeep Sabillon with further recommendations to follow. For Endocarditis patients -- please notify our service GELACIO if the patient develops any of the following: - acute/worsening heart block on EKG. - hemodynamic instability/cardiogenic shock +/- cardiac ischemia on EKG or evidence of heart failure. - evidence of recurrent SYSTEMIC embolization. - while persistent bacteremia can be an indication for surgery, every attempt is made to maximize antibiotic therapy prior to surgery unless one of the above becomes an issue. This patient was discussed with Dr. Kuldeep Sabillon. Thank you for the consult. Please call with any additional questions or concerns. Laurie Fritz APRN-[facility] Cardiac Surgery REBA Pager/Phone #[phone] Associated Order(s): IP CONSULT TO CARDIOLOGY CARDIOLOGY CONSULTATION NOTE IMPRESSION AND PLAN Mr. Nava is a 78 y.o. 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 If ID agrees would start rifampin to help reduce biofilm deposition in the setting of aortic graft and discontinue amiodarone. Can increase the metoprolol in place of amiodarone to keep HR < 100 at rest Please obtained FER records and imaging Awaiting CT surgery evaluation, patient is averse to repeat sternotomy Pt staffed with attending physician Dr. Potter Cardiology will follow. Please page with questions. Regis Little MD Cardiovascular Medicine Fellow HISTORY OF PRESENT ILLNESS Markus Nava is a 78 y.o. male admitted to [facility] and the Cardiology service has been consulted by medicine to assist with AV mechanical valve endocarditis Patient admitted to outside hospital on 06/02 in the setting of mild fatigue and high-grade fevers up to 103 F at home. Ultimately patient was found to have MSSA bacteremia complicated by septic shock requiring brief ICU stay, vasopressor support and stress dose steroids. He had a short run of AFib RVR requiring amiodarone infusion. Fer completed 06/06 demonstrated AV valve vegetation concerning for endocarditis. Patient was started on cefazolin and gentamicin given his prosthetic infection. He was transferred to [facility] for further evaluation. Upon arrival patient was found resting comfortably in bed, denies any acute complaints and feels near his baseline. 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 He denies any chest pain, shortness of breath or orthopnea. He does have longstanding lower extremity edema shortly after his valve was replaced in 2001. Reports no recent procedures or instrumentation. Patient has dentures without recent dental procedure. Reports multiple next and scrapes related to hiking activities. More recently patient self diagnosed basal cell carcinoma with help of a oncologist friend (not biopsy proven). This lesion bleeds a lot after shaving. Vitals: HR 90-100, BP 120-150/70, sating well on RA, afebrile Labs: Na 140, K 3.5, Cr 0.95, Mg 1.7, WBC 16, Plt 250, INR 2.5 PAST, FAMILY, AND SOCIAL HISTORY He has no past medical history on file. His family history is not on file. He has no history on file for tobacco use, alcohol use, and drug use. He is allergic to alprazolam. He has a current medication list which includes the following prescription(s): duloxetine, lorazepam, metoprolol, prednisone, warfarin, warfarin, ferrous sulfate, and melatonin, and the following Facility-Administered Medications: acetaminophen, amiodarone, cefazolin, duloxetine, Gentamicin (GARAMYCIN) 80 mg in Sodium chloride 0.9%, with overfill 112 mL (total volume) IVPB, lorazepam, magnesium oxide OR magnesium oxide OR magnesium sulfate, magnesium sulfate, melatonin, metoprolol, ondansetron 4mg/2ml OR ondansetron, pantoprazole, potassium chloride OR potassium bicarbonate, prednisone, sodium chloride 0.9%, tamsulosin hcl. REVIEW OF SYSTEMS A 14-point review of systems is negative except for what is mentioned to be positive elsewhere. PHYSICAL EXAMINATION BP 117/67 (BP Location: Left arm, BP Position: Lying) Pulse 83 Temp 98 F (36.7 C) (Oral) Resp 20 Ht 1.829 m (6') Comment: estimated Wt 98.5 kg (217 lb 3.2 oz) SpO2 97% BMI 29.46 kg/m O2 Device: room air (06/06/23 0684) General: NAD, well developed, well groomed, appears stated age HEENT: NC/AT, EOMI, no scleral icterus or conjunctival injection, MMM, estimated JVP 4-6 cm H20 Respiratory: Normal effort, no accessory muscle usage, symmetric to auscultation bilaterally, no wheezes or crackles CV: Irregularly irregular rate and rhythm, mechanical heart sound, 2+ lower extremity edema to mid shins bilaterally. Abdomen: Soft, non-tender, non-distended MSI: Normal muscle tone and bulk, skin warm and dry DATA REVIEW ECG and telemetry reviewed Recent Labs 06/06/23 2214 HGB 11.5* Associated attestation - Prince Potter MD - 06/07/2023 3:55 PM EST I have interviewed and examined the patient, and reviewed any relevant data independently. I agree with the examination, impressions and plan as outlined by Regis Little MD The patient is alert and oriented times 3, no aparent distress, stable vital signs. No jugular venous distension, no carotid bruit. Lungs are clear to auscultation bilaterally. S1 and S2 are slightly iregular. [place] mechanical opening and closing valve sounds. No murmur, rub, gallop or thrill auscultated. Abdomen benign, no hepatosplenomegaly, non tender, normal bowel sounds. Good distal pulses, negative Prieto sign bilaterally. No edema bilaterally. Prosthetic aortic valve endocarditis, MSSA, per primary team and ID Paroxysmal atrial fibrillation, rate controlled Chronic use of warfarin, for the mechanical aortic valve and PAF, target INR is 2-3, bridge with heparin as needed May stop amiodarone, no longer needed for rate or rhythm control. Increase dose of metoprolol as needed. documented in this encounter [facility] 06-16-2023 Consult note Formatting of th is note might be different from the original. VASCULAR ACCESS NOTE: Consulted to check on PICC line that has been bleeding overnight. Per RN site has been bleeding and early this morning noted blood up to outside of dressing onto bed. Gauze and coban used to control bleeding and consult placed. Coban removed and dressing carefully removed as well. Old blood noted attached to old stat lock. Using sterile technique, Chlorhexadine used to clean site. Site still has some oozing of blood noted. Site allowed to dry, a new stat lock placed to secure the PICC, bio patch placed on top of the insertion site, a large surgicel placed on top of the bio patch and a CHG dressing used to cover the PICC. Another micropore dressing tightly placed across the new dressing for pressure. Cap removed, hub cleansed, line still fully functional, flushing and withdrawing with ease. Dressing signed and dated. Waited for few minutes and observed the site but no oozing noted after 15 minutes of observing RN informed and requested to page PICC team if new bleeding is noted. Please page #[phone] for issues, thanks Report of PICC Consultation and Evaluation: Patient seen and evaluated for PICC insertion using ultrasound guidance. ID band present, allergies and limb precautions verified with patient/nurse. Skin integrity within normal limits at time of insertion. No evidence of ecchymosis, infiltration, hematoma, edema, or any condition that would prevent safe insertion of a PICC with ultrasound. I have reviewed pertinent laboratory results. Lab Results Component Value Date WBC 15.06 (H) 06/08/2023 HGB 10.2 (L) 06/08/2023 HCT 32.6 (L) 06/08/2023 PLATELET 278 06/13/2023 MCV 90.6 06/08/2023 Lab Results Component Value Date CREATSERUM 1.11 06/14/2023 Lab Results Component Value Date INR 1.3 (H) 06/14/2023 INR 1.4 (H) 06/13/2023 INR 1.5 (H) 06/12/2023 PT 16.3 (H) 06/14/2023 PT 17.3 (H) 06/13/2023 PT 17.7 (H) 06/12/2023 Lab Results Component Value Date PTT 85.3 (H) 06/14/2023 Temp Readings from Last 1 Encounters: 06/14/23 98.6 F (37 C) (Oral) I have discussed the following issues with the ordering Clinician: MD Procedure explained to patient. Anatomical distortion to interfere with placement: nono Arm preference for venous access: Right Arm Patient is alert, cooperative, no distress, appears stated age Patient Teaching: Yes Family Teaching: No Rhine Protocol/Time Out Completed under Procedure Documentation Step 1: Pre-Procedure Verification Includes Consent Form, Order, Consult, H&P and/or Schedule is consistent with planned procedure: yes Reviewed Medication List/Allergy List: yes Relevant radiology images & scans and pathology & biopsy reports properly displayed and labeled reviewed by practitioner: yes Any required blood product, devices, implants, special equipment or supplies available: n/a Consent obtained with laterality defined: yes Relevant lab results available: Yes Step 2: Site Marking Includes Site Marking: yes Step 3: Time Out Includes Patient and Procedure (side/site marked when applicable),: yes Patient Positioning Correct?: Yes The need for antibiotics or fluids to be administered: yes Relevant images displayed (if applicable): yes Care of specimens (if applicable): N/A Rhine Protocol Verification Name of Practitioner attesting all steps of the Rhine Protocol have been completed: jovani Pager: [phone] Pre Procedure Relevant lab results available: Yes PROCEDURE DETAILS: PICC Insertion Procedure Using standard sterile technique access was obtained. Good blood return noted, catheter flushed easily with 10mls 0.9 NS per lumen. Statlock device used to secure PICC. Dressing applied. Pt denies pain at insertion site. PICC Line - Single Lumen 06/14/23 1132 basilic vein (medial side of arm), right 4 Fr (Active) 06/14/23 1132 Present On Admission : no Lumen 1: Lumen 2: Lumen 3: purple Location: basilic vein (medial side of arm), right Device/Lot Number: Regional Facilities Manager/Lot Number: [id number] Size/Length: 4 Fr Inserted Catheter Length (cm): 46 Total Length (cm): 46 Placement Verification: placement verified by x-ray Tip Termination: superior vena cava Guiding Device: ultrasound Indication/Daily Review of Necessity: Inserted By: Registered Nurse Unsuccessful Insertion Attempts: 0 Unsuccessful Attempt Location/Site: Pain Prevention/Patient Tolerance: intradermal injection Removal: Placement Over Guidewire: Additional Comments: Lumen 4: Lumen 5: Catheter Length Distal to Site (cm) 0 06/14/23 1100 Mid-Upper Arm Circumference (cm) 31 06/14/23 1100 Patient tolerated procedure well without any complications Extra insertion note if applicable: PICC inserted by jovani RN and assisted by maura RN [X] Antimicrobial foam disc/dressing. [] Unable to place Antimicrobial foam disc/drsg due to: N/A [X] Curos Caps applied [X] CXR ordered for PICC tip confirmation. Doctor Farnaz TORRES notified of procedure completion and will notify primary RN for PICC clearance and use. [] Obtained labs. ( labeled labs taken to in biohazard bag ) [X] Call light in reach. [X] Bed low and locked. [X] Tray table within reach. Education: Patient/Family informed to notify nurse of any complications including pain, redness, swelling, or leakage post insertion. Central Venous Catheter Insertion Checklist Was the line placed emergently (e.g., during Code Blue or trauma): N/A Before the procedure, did the aggregate conveyor operator Document informed consent. Yes Perform timeout. Yes 3. Stunt Person: If enter sterile field, uses sterile gown and gloves, cap, mask/eye protection. N/A 4. Prep site with ChloraPrep for 30 sec minimum (if femoral 120 sec minimum). Yes 5. Sterile technique to drape patient from head to toe. Yes During the procedure, did the aggregate conveyor operator Maintain a sterile field. Yes Obtain a qualified hydro station operator IF 3 unsuccessful sticks. (except if emergent); document the number of attempts. N/A Change gloves: if a catheter was exchanged over a guide wire before handling the new sterile catheter. N/A Account for the guidewire at all times. Yes After the procedure, did the aggregate conveyor operator Apply a sterile dressing immediately after insertion. Yes Document date and time on the dressing. Yes Perform hand hygiene. Yes All staff wore a mask until sterile dressing placed. Yes Dispose sharps immediately after the procedure. Yes I have completed the Central Venous Catheter Insertion Checklist. Consults Vascular Access Consult Note Arrived at bedside for PICC placement - patient eating dinner and prefers to have PICC placed morning of 06/14. Patient does have good vein options for PICC. Thank you for allowing our team to participate in the care of this patient. Vascular Access Team [phone] ConsultsVASCULAR ACCESS NOTE: Thank you for your referral to the Vascular Access Team. Consulted for placement of: [] PIV [] Midline [x] PICC [] Arms assessed for device placement, viable vessels identified: No device placed due to: [x] Awaiting final recommendations from ID [] Awaiting approval from nephrology in the presence of CKD 3 or higher [x] Awaiting patient to have blood culture clearance [] Awaiting TPN approval [] Already has adequate access for therapies prescribed [] No viable veins (see description below) [] Patient refused [] Both arms found to have contraindications for line placement [] Continued malposition despite multiple attempts [] Accessed vein successfully, but PICC catheter would not advance [] Patient unable to give consent, no POA/unable to reach POA Additional note: PICC pager [phone] PIV pager [phone] Associated Order(s): IP CONSULT TO DERMATOLOGY Assessment and Plan [place] shiny plaque with hemorrhagic crust and dilated telangiectasias on right neck - This is consistent with a basal cell carcinoma. Basal cell carcinoma is treated in the outpatient setting with wide local excision vs. Mohs surgery -It is imperative that he follows up with a honest john rocket crew member once discharged for definitive treatment. Offered patient follow up with [facility] derm, but he prefers to establish with a honest john rocket crew member closer to home. If he is unable to find a honest john rocket crew member closer to home, he should call [phone] to schedule an appointment with [facility] dermatology. robby you for allowing us to participate in the care of this patient. Our consult team will sign off today, 06/10/2023. Please contact the dermatology resident electrical controls engineer if you have any further questions. Haley Kenyon MD Dermatology Resident Consult Request neck lesion concern for basal cell carcinoma Requesting service: [facility] History of Present Illness. Patient is a 78 y.o. 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 Dermatology evaluation was requested for suspected NMSC on the neck. Duration/First noticed: year Location: right neck Severity: n/a Associated symptoms: non healing Previous Treatments: none Additional Summarized Information: Patient lives in [place] and would like to establish with a honest john rocket crew member closer to his home for outpatient care. This lesion has not previously been evaluated by dermatology Past Medical History No past medical history on file. Allergies (Medicines reviewed in list at bottom). Markus Nava is is allergic to alprazolam. Family History: family history is not on file. Social history: Social History Socioeconomic History Marital status: Tobacco Use Smoking status: Never Passive exposure: Never Smokeless tobacco: Never Substance and Sexual Activity Alcohol use: Never Drug use: Never Social Determinants of Health Food Insecurity: No Food Insecurity (06/06/2023) Hunger Vital Sign Worried About Running Out of Food in the Last Year: Never true Ran Out of Food in the Last Year: Never true Transportation Needs: No Transportation Needs (06/06/2023) PRAPARE - Transportation Lack of Transportation (Medical): No Lack of Transportation (Non-Medical): No Intimate Partner Violence: Not At Risk (06/06/2023) Humiliation, Afraid, Rape, and Kick questionnaire Fear of Current or Ex-Partner: No Emotionally Abused: No Physically Abused: No Sexually Abused: No Housing Stability: Low Risk (06/06/2023) Housing Stability Vital Sign Unable to Pay for Housing in the Last Year: No Number of Places Lived in the Last Year: 1 Unstable Housing in the Last Year: No Review of Systems Full ROS reviewed in admission H&P dated 06/06/2023 9:34 PM. Additional dermatologic ROS items see H&P. Vitals: Temp: [97.5 F (36.4 C)-98.8 F (37.1 C)] 98.8 F (37.1 C) Pulse (Heart Rate): [64-79] 64 Resp Rate: [16-18] 18 BP: (110-133)/(55-73) 116/65 O2 Sat (%): [95 %-100 %] 95 % Physical Exam: WD, WN, NAD. Normal mood and affect. Exam included Check all areas examined: []Scalp []Face []Lips []Eyelids, conjunctiva [x]Neck []Back []Chest []Abd []Buttocks []Genitalia []R arm []L arm []R leg []L leg []Digits, nails []Oropharynx []Lymph []Periph Vascular All normal except: [place] shiny plaque with hemorrhagic crust and dilated telangiectasias on right neck Relevant Labs/Imaging/Pathology -none Current Medications Current Facility-Administered Medications Medication Dose Route Frequency Provider Last Rate Last Admin Acetaminophen (TYLENOL) tablet 650 mg 650 mg Oral Q6H PRN Katiana Cabrera MD 650 mg at 06/06/23 2329 AMIOdarone (PACERONE) tablet 200 mg 200 mg Oral Daily Katiana Cabrera MD 200 mg at 06/10/23 0742 ceFAZolin (ANCEF) 3 g in Sodium chloride 0.9%, with overfill 290 mL IV infusion 3 g Intravenous Q12HNS Candis Lamas DO 24.2 mL/hr at 06/10/23 0745 3 g at 06/10/23 0745 DULoxetine (CYMBALTA) capsule DR 60 mg 60 mg Oral Daily Katiana Cabrera MD 60 mg at 06/10/23 0742 furOSEmide (LASIX) injection 40 mg 40 mg Intravenous Q12H Heike Milan MD 40 mg at 06/10/23 1207 [START ON 06/11/2023] Gentamicin (GARAMYCIN) 60 mg in Sodium chloride 0.9%, with overfill 111.5 mL (total volume) IVPB 60 mg Intravenous Q12HNS Kelvin Pitts, [facility] Heparin 25,000 units in dextrose 5% 250 mL premix infusion 0-30 Units/kg/hr (Dosing Weight) Intravenous Continuous Heike Milan MD 14.8 mL/hr at 06/10/23 1410 15 Units/kg/hr at 06/10/23 1410 LORazepam (ATIVAN) tablet 0.5 mg 0.5 mg Oral BID PRN Katiana Cabrera MD 0.5 mg at 06/10/23 0742 magnesium oxide (MAG-OX) tablet 800 mg 800 mg Oral As directed PRN Katiana Cabrera MD 800 mg at 06/10/23 0633 Or magnesium oxide (MAG-OX) tablet 800 mg 800 mg Per NG tube As directed PRN Katiana Cabrera MD Or Magnesium sulfate 4 g in sterile water 50 ml premix IVPB 4 g Intravenous As directed PRN Katiana Cabrera MD Melatonin tablet 6 mg 6 mg Oral QHS PRN Katiana Cabrera MD 6 mg at 06/08/23 2311 Metoprolol (LOPRESSOR) tablet 50 mg 50 mg Oral BID Katiana Cabrera MD 50 mg at 06/10/23 0742 Ondansetron 4mg/2ml (ZOFRAN) injection 4 mg 4 mg Intravenous Q6H PRN Katiana Cabrera MD Or Ondansetron (ZOFRAN) tablet 4 mg 4 mg Oral Q6H PRN Katiana Cabrera MD Pantoprazole (PROTONIX) tablet DR 40 mg 40 mg Oral Daily Katiana Cabrera MD 40 mg at 06/10/23 0742 Potassium chloride (K-DUR) tablet ER 40-60 mEq 40-60 mEq Oral As directed PRN Katiana Cabrera MD 40 mEq at 06/10/23 0633 Or potassium bicarbonate (EFFER-K) effervescent tablet 25 mEq 25 mEq Per NG tube As directed PRN Katiana Cabrera MD predniSONE (DELTASONE) tablet 20 mg 20 mg Oral Daily Katiana Caberra MD 20 mg at 06/10/23 0742 Sodium chloride 0.9% IV solution 250 mL 250 mL Intravenous PRN Katiana Cabrera MD Tamsulosin HCl (FLOMAX) capsule 0.4 mg 0.4 mg Oral Daily Katiana Cabrera MD 0.4 mg at 06/10/23 0742 [Held by provider] warfarin (COUMADIN) tablet 6.5 mg 6.5 mg Oral Daily early evening Heike Milan MD 6.5 mg at 06/09/23 2203 Associated attestation - Lance Shepard MD - 06/11/2023 10:02 PM EST Patient was seen and examined with Dr. Kenyon; I saw and personally examined the patient on 06/10/23. I also discussed the findings and therapeutic plan with Dr. Kenyon, reviewed the entirety of the note and agree with the history, physical examination, and medical decisions as outlined. We are consulted for a lesion on the neck. It has the clinical appearance fairly typical of basal cell carcinoma. We offered outpt followup with us at [facility] for excision but pt declines and would prefer to be treated closer to home. 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 Lance Shepard MD Dermatology Associated Order(s): IP CONSULT TO INFECTIOUS DISEASE IP CONSULT TO INFECTIOUS DISEASE Consult performed by: Isidro Jimenez MD Consult ordered by: Katiana Cabrera MD INFECTIOUS DISEASE CONSULT NOTE IDENTIFYING INFORMATION PATIENT: Markus Nava REFERRING PROVIDER: Heike Milan MD ADMIT DATE: 06/06/2023 TODAY'S DATE: 06/07/2023 CHIEF COMPLAINT Fevers REASON FOR CONSULT 78 yo M with Hx of aortic valve replacement now with MSSA bacteremia and AV endocarditis ASSESSMENT Markus Nava is a 78 y.o. 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 He denies any recent skin or soft tissue infections. He does not have a history of any hardware or prosthetics other than his AV and PV. Would plan for 6 week course of cefazolin and 2 week course of gentamicin, although will defer starting rifampin at this time given his need for anticoagulation with warfarin. Suspect he will also need lifelong antibiotic prophylaxis once he completes treatment. Hx strep [place] AV endocarditis s/p Ross procedure (1996) c/b graft dilation and aortic insufficiency requiring modified Bentall procedure (2001) Hx diverticulitis s/p proctosigmoidectomy (2016) Hx C diff colitis: reported fully treated at OSH. Recently completed 10-day course of PO vanc for prophylaxis after being started on steroid taper for concern for possible IBD. He denies diarrhea currently and had negative testing at OSH prior to transfer. RECOMMENDATIONS Diagnostics Agree with cardiac surgery evaluation for possible intervention Repeat blood cultures daily for 3 days to ensure durable clearance Therapeutics Transition cefazolin from intermittent to continuous dosing 3g q12h over 12h for anticipated 6 week course Continue gentamicin 80 mg q8h for 2 week course No need for rifampin at this time as patient will likely need to resume warfarin dosing in the future and this would likely make it very difficult for him to achieve therapeutic INR Isolation: none ID team 1 will continue to follow. Please call aforementioned team with questions. Discussed with attending, Dr. Knott. Isidro Jimenez MD Internal Medicine Resident, PGY-2 HISTORY OF PRESENT ILLNESS Markus Nava is a 78 y.o. male with a past medical history of streptococcal endocarditis of the AV requiring AV and PV replacement in 1996 c/b graft dilation and aortic insufficiency requiring modified Bentall procedure in 2021, atrial fibrillation, diverticulitis s/p colectomy (now with c/f Crohn's), anxiety, and depression who is transferred from OSH for MSSA endocarditis of mechanical valve. Infectious disease is consulted for management recommendations. Patient was admitted to [facility] 06/02/23-06/06/23 after presenting with fevers (Tmax 103F at home) and rigors. Denied abdominal pain, vomiting, diarrhea, dysuria, rash, cough at the time of initial presentation. He was febrile on arrival to 103F and initially thought to have a viral syndrome as his girlfriend had recently been ill as well. CXR, UA, covid and flu negative. Then found to have MSSA bacteremia with 2/2 blood cultures positive on 06/02. Urine cultures positive for staph aureus, reportedly with low colony count, so this was attributed to seeding from the bacteremia. He was started on cefazolin and gentamicin. His hospital course was complicated by septic shock requiring levophed and stress dose steroids, as well as afib with RVR requiring amiodarone gtt. FER 06/06/23 showed an AV vegetation measuring 1.1 x 0.7 cm that was freely mobile. ID and cardiology were consulted and decision was made to transfer to [facility] on 06/[address] surgery evaluation. Per his discharge summary from [facility], a repeat blood culture drawn from a line on 06/03 had no growth in 48 hours. On arrival, patient afebrile and hemodynamically stable off pressors. Chem within normal limits. INR initially 2.5, now 2.1. CBC with WBC 16.38, Hgb 11.5, plt 250. Repeat blood cultures 06/06 pending. He is currently on cefazolin and gentamicin. Cardiac surgery has been consulted. Today patient reports feeling better and states his fevers and rigors have resolved. He is wary about the possibility of surgery, which he would like to avoid if at all possible. Denies any recent infections, rashes, wounds. Of note, patient also had recent hospitalization at [facility] for lower GI bleed from 04/25/23-05/04/23. Colonoscopy 04/27/23 showed patchy moderate mucosal changes in the transverse colon, hepatic flexure, ascending colon, cecum, appendiceal orifice, and ileocecal valve secondary to colitis. Biopsy showed focal acute enteritis in the ileum, focal acute colitis in the cecum, and focal acute colitis from random biopsy in the colon. There was concern for possible new diagnosis of Crohn's disease, and he was started on solumedrol and discharged on PO vanc for c diff ppx as he had recently completed treatment for c diff colitis. REVIEW OF SYSTEMS A complete review of systems was performed and otherwise negative unless noted in HPI. PAST MEDICAL, SURGICAL, FAMILY, and SOCIAL HISTORY No past medical history on file. No past surgical history on file. No family history on file. Social History Socioeconomic History Marital status: Social Determinants of Health Food Insecurity: No Food Insecurity (06/06/2023) Hunger Vital Sign Worried About Running Out of Food in the Last Year: Never true Ran Out of Food in the Last Year: Never true Transportation Needs: No Transportation Needs (06/06/2023) PRAPARE - Transportation Lack of Transportation (Medical): No Lack of Transportation (Non-Medical): No Intimate Partner Violence: Not At Risk (06/06/2023) Humiliation, Afraid, Rape, and Kick questionnaire Fear of Current or Ex-Partner: No Emotionally Abused: No Physically Abused: No Sexually Abused: No Housing Stability: Low Risk (06/06/2023) Housing Stability Vital Sign Unable to Pay for Housing in the Last Year: No Number of Places Lived in the Last Year: 1 Unstable Housing in the Last Year: No INPATIENT MEDICATIONS AMIOdarone 200 mg Oral Daily ceFAZolin 2 g Intravenous Q8HNS DULoxetine 60 mg Oral Daily gentamicin 80 mg Intravenous Q8HNS Magnesium sulfate Metoprolol 50 mg Oral BID Pantoprazole 40 mg Oral Daily predniSONE 20 mg Oral Daily Tamsulosin HCl 0.4 mg Oral Daily Allergies Allergies Allergen Reactions Alprazolam Other Reaction(s): Other Altered mental status-tolerates lorazepam PHYSICAL EXAM Temp: [98 F (36.7 C)-99 F (37.2 C)] 98 F (36.7 C) Pulse (Heart Rate): [77-100] 83 Resp Rate: [17-24] 20 BP: (117-151)/(67-71) 117/67 O2 Sat (%): [97 %-98 %] 97 % Weight: [98.5 kg (217 lb 3.2 oz)] 98.5 kg (217 lb 3.2 oz) Physical Exam Vitals reviewed. Constitutional: General: He is not in acute distress. Appearance: He is not toxic-appearing. HENT: Mouth/Throat: Mouth: Mucous membranes are moist. Pharynx: Oropharynx is clear. Eyes: Extraocular Movements: Extraocular movements intact. Conjunctiva/sclera: Conjunctivae normal. Pupils: Pupils are equal, round, and reactive to light. Cardiovascular: Rate and Rhythm: Normal rate. Rhythm irregular. Pulses: Normal pulses. Comments: Mechanical click Pulmonary: Effort: Pulmonary effort is normal. Comments: Mildly diminished at the bases bilaterally Abdominal: General: Abdomen is flat. Bowel sounds are normal. Palpations: Abdomen is soft. Musculoskeletal: General: Normal range of motion. Cervical back: Normal range of motion and neck supple. Right lower leg: Edema present. Left lower leg: Edema present. Skin: General: Skin is warm and dry. Neurological: General: No focal deficit present. Mental Status: He is alert and oriented to person, place, and time. Psychiatric: Mood and Affect: Mood normal. Behavior: Behavior normal. LABS AND IMAGING Lab Results Component Value Date WBC 16.38 (H) 06/06/2023 HGB 11.5 (L) 06/06/2023 HCT 37.1 (L) 06/06/2023 PLATELET 250 06/06/2023 MCV 90.9 06/06/2023 Lab Results Component Value Date SODIUM 140 06/06/2023 POTASSIUM 3.5 06/06/2023 CHLORIDE 103 06/06/2023 CO2 28 06/06/2023 BUN 16 06/06/2023 CREATSERUM 0.95 06/06/2023 Microbiologic Data (personally reviewed): Blood cultures (2 peripheral) 06/06/23: pending Imaging (personally reviewed): CXR 06/06/23: RIJ CVC in place, no complication. Pulmonary edema. Associated attestation - Vasile Knott MD, PhD - 06/07/2023 5:00 PM EST ID Staff: I have interviewed and examined patient independently (06-07-23) and have discussed case with the ID team. I agree with the findings and recommendations as documented above by Dr. Jimenez. Vasile Knott MD, PhD Division of Infectious Diseases [facility] Associated Order(s): IP CONSULT TO SURGERY - CARDIAC CARDIAC SURGERY CONSULT NOTE Reason for Consult: We were asked by Dr. Heike Milan MD to see Markus Nava and offer our opinion on the evaluation and treatment of bioprosthetic aortic valve endocarditis. Mr. Nava is a 78 y.o. 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 He was initially admitted to [facility] 06/02/23-06/06/23 with fevers and chills. He was found to have MSSA bacteremia and septic shock requiring levophed and stress dose steroids. He also had afib RVR and was started on an amiodarone gtt. 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 He was then transferred to [facility] for further management and surgical evaluation. We are asked to evaluate for surgical aortic valve replacement. Patient denies chest pain, dyspnea, dizziness, syncope, change in bowel habits. He does endorse chronic neck, shoulder, and back pain and chronic BLE edema. Of note, patient does not want a third sternotomy Social:former smoker, rarely drinks Caregiver Support:girlfriend- Thai, adult children Skin: no rashes or lesions Urinary Symptoms:none Nickel Allergy: YES(DEF)/NO: No REVIEW OF SYSTEMS Full review of systems performed. All others are negative except as indicated in HPI. RELEVANT INFORMATION No past medical history on file. No past surgical history on file. No family history on file. Social History has no history on file for tobacco use, alcohol use, and drug use. Social History Tobacco Use Smoking Status Not on file Smokeless Tobacco Not on file Social History Substance and Sexual Activity Alcohol Use None Allergies Allergies Allergen Reactions Alprazolam Other Reaction(s): Other Altered mental status-tolerates lorazepam Current Medications Scheduled Meds: AMIOdarone 200 mg Oral Daily ceFAZolin 2 g Intravenous Q8HNS DULoxetine 60 mg Oral Daily gentamicin 80 mg Intravenous Q8HNS Magnesium sulfate Metoprolol 50 mg Oral BID Pantoprazole 40 mg Oral Daily predniSONE 20 mg Oral Daily Tamsulosin HCl 0.4 mg Oral Daily Continuous Infusions: PRN Meds:Acetaminophen, LORazepam, magnesium oxide OR magnesium oxide OR magnesium sulfate, Magnesium sulfate, Melatonin, Ondansetron 4mg/2ml OR Ondansetron, Potassium chloride OR potassium bicarbonate, Sodium chloride 0.9% DIAGNOSTIC RESULTS Heart Catheterization None available Echocardiogram FER OSH 06/06/2023: EF 50%, normal LV size,, normal RV size and systolic function, mild MV insufficiency, mild TV insufficiency, AV vegetation of the non coronary cusps measuring 1.1 cm x 0.7 cm freely mobile, stable appearing mechanical AV apparatus Imaging N/a Labs: Lab Results Component Value Date WBC 16.38 (H) 06/06/2023 HGB 11.5 (L) 06/06/2023 PLATELET 250 06/06/2023 PTT 41.9 (H) 06/06/2023 INR 2.5 (H) 06/06/2023 SODIUM 140 06/06/2023 POTASSIUM 3.5 06/06/2023 CHLORIDE 103 06/06/2023 CO2 28 06/06/2023 BUN 16 06/06/2023 CALCIUM 8.6 12/24/2004 MAGNESIUM 1.7 06/06/2023 PHOSPHORUS 3.1 12/24/2004 AST 26 11/28/2004 GGT 114 (H) 11/28/2004 ALKPHOS 128 (H) 11/28/2004 BILITOTAL 1.2 11/28/2004 BILIDIRECT 0.1 11/28/2004 ALBUMIN 3.4 11/21/2004 Lab Results Component Value Date CREATSERUM 0.95 06/06/2023 PHYSICAL EXAM Physical Exam Vital Signs (24hrs): Blood pressure 117/67, pulse 83, temperature 98 F (36.7 C), temperature source Oral, resp. rate 20, height 1.829 m (6'), weight 98.5 kg (217 lb 3.2 oz), SpO2 97 %. Pulmonary/Cardiac Hemodynamics Pulse (Heart Rate): 83 Body mass index is 29.46 kg/m . Intake/Output Summary (Last 24 hours) at 06/07/2023 0838 Last data filed at 06/07/2023 0800 Gross per 24 hour Intake 185.74 ml Output 1000 ml Net -814.26 ml Wt Readings from Last 3 Encounters: 06/06/23 98.5 kg (217 lb 3.2 oz) General appearance: alert, cooperative, appears stated age Lungs: clear to auscultation bilaterally Heart: irregularly irregular rhythm Abdomen: soft and non tender, non distended, noted to have abdominal hernia just superior to umbilicus as well as scar from prior open inguinal hernia repair and colon resection Extremities: 2+ BLE edema , Normal ROM. Pulses: 2+ and symmetric Skin: Skin color, texture, turgor normal. No rashes or lesions Neurologic: Grossly normal Psych: appropriate mood and affect for clinical situation ASSESSMENT/PLAN Markus Nava is a 78 y.o. year old male with the following hospital problems: MSSA bacteremia and endocarditis of prosthetic AV valve Initially with septic shock at OSH, now resolved. Found to have MSSA bacteremia. Prosthetic AV vegetation confirmed on OSH FER. - Continue cefazolin 2g q8h and gentamicin 60mg q8h. Per OSH records, rifampin was also considered but concerns for drug interaction with amiodarone and not yet started - Consult ID - Consult cardiology and cardiothoracic surgery - Follow up OSH Bcx to ensure clearance of bacteremia Supratherapeutic INR - resolved Mechanical aortic valve present INR 3.8 on admission to OSH, 3.4 today per OSH records. INR 2.5 on admission here. - Continue holding warfarin, recheck INR in AM. Goal 2.5-3.5, if less than goal will start heparin gtt in case of any surgical interventions Atrial fibrillation CHADSVASC 3 (age, HTN). RVR at OSH, started on amiodarone. - Continue amiodarone 200 mg daily - Continue metoprolol 50mg BID - Telemetry - Cardiology consult as above History of GI bleed Diverticulitis s/p partial colectomy Suspected Crohn's disease History of diverticulitis s/p partial colectomy, but recently with GI bleed in Apr 2023. Colonoscopy with concern for Crohn's disease, discharged on steroid taper. - Continue pantoprazole 40 mg daily - Continue prednisone 20mg daily - Outpatient follow up with GI Urethral stricture s/p dilation Urology consulted and dilation performed at OSH, brown removed prior to transfer. - Continue flomax, monitor for signs of retention Anxiety - Continue ativan 0.5 mg po BID prn and duloxetine 60mg daily Leukocytosis - Likely due to known infection as above, continue to monitor Complexity RECOMMENDATIONS: Patient and plan to be discussed with Dr. Kuldeep Sabillon with further recommendations to follow. For Endocarditis patients -- please notify our service GELACIO if the patient develops any of the following: - acute/worsening heart block on EKG. - hemodynamic instability/cardiogenic shock +/- cardiac ischemia on EKG or evidence of heart failure. - evidence of recurrent SYSTEMIC embolization. - while persistent bacteremia can be an indication for surgery, every attempt is made to maximize antibiotic therapy prior to surgery unless one of the above becomes an issue. This patient was discussed with Dr. Kuldeep Sabillon. Thank you for the consult. Please call with any additional questions or concerns. Laurie Fritz APRN-[facility] Cardiac Surgery REBA Pager/Phone #[phone] Associated Order(s): IP CONSULT TO CARDIOLOGY CARDIOLOGY CONSULTATION NOTE IMPRESSION AND PLAN Mr. Nava is a 78 y.o. 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 If ID agrees would start rifampin to help reduce biofilm deposition in the setting of aortic graft and discontinue amiodarone. Can increase the metoprolol in place of amiodarone to keep HR < 100 at rest Please obtained FER records and imaging Awaiting CT surgery evaluation, patient is averse to repeat sternotomy Pt staffed with attending physician Dr. Potter Cardiology will follow. Please page with questions. Regis Little MD Cardiovascular Medicine Fellow HISTORY OF PRESENT ILLNESS Markus Nava is a 78 y.o. male admitted to [facility] and the Cardiology service has been consulted by medicine to assist with AV mechanical valve endocarditis Patient admitted to outside hospital on 06/02 in the setting of mild fatigue and high-grade fevers up to 103 F at home. Ultimately patient was found to have MSSA bacteremia complicated by septic shock requiring brief ICU stay, vasopressor support and stress dose steroids. He had a short run of AFib RVR requiring amiodarone infusion. Fer completed 06/06 demonstrated AV valve vegetation concerning for endocarditis. Patient was started on cefazolin and gentamicin given his prosthetic infection. He was transferred to [facility] for further evaluation. Upon arrival patient was found resting comfortably in bed, denies any acute complaints and feels near his baseline. 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 He denies any chest pain, shortness of breath or orthopnea. He does have longstanding lower extremity edema shortly after his valve was replaced in 2001. Reports no recent procedures or instrumentation. Patient has dentures without recent dental procedure. Reports multiple next and scrapes related to hiking activities. More recently patient self diagnosed basal cell carcinoma with help of a oncologist friend (not biopsy proven). This lesion bleeds a lot after shaving. Vitals: HR 90-100, BP 120-150/70, sating well on RA, afebrile Labs: Na 140, K 3.5, Cr 0.95, Mg 1.7, WBC 16, Plt 250, INR 2.5 PAST, FAMILY, AND SOCIAL HISTORY He has no past medical history on file. His family history is not on file. He has no history on file for tobacco use, alcohol use, and drug use. He is allergic to alprazolam. He has a current medication list which includes the following prescription(s): duloxetine, lorazepam, metoprolol, prednisone, warfarin, warfarin, ferrous sulfate, and melatonin, and the following Facility-Administered Medications: acetaminophen, amiodarone, cefazolin, duloxetine, Gentamicin (GARAMYCIN) 80 mg in Sodium chloride 0.9%, with overfill 112 mL (total volume) IVPB, lorazepam, magnesium oxide OR magnesium oxide OR magnesium sulfate, magnesium sulfate, melatonin, metoprolol, ondansetron 4mg/2ml OR ondansetron, pantoprazole, potassium chloride OR potassium bicarbonate, prednisone, sodium chloride 0.9%, tamsulosin hcl. REVIEW OF SYSTEMS A 14-point review of systems is negative except for what is mentioned to be positive elsewhere. PHYSICAL EXAMINATION BP 117/67 (BP Location: Left arm, BP Position: Lying) Pulse 83 Temp 98 F (36.7 C) (Oral) Resp 20 Ht 1.829 m (6') Comment: estimated Wt 98.5 kg (217 lb 3.2 oz) SpO2 97% BMI 29.46 kg/m O2 Device: room air (06/06/23 2696) General: NAD, well developed, well groomed, appears stated age HEENT: NC/AT, EOMI, no scleral icterus or conjunctival injection, MMM, estimated JVP 4-6 cm H20 Respiratory: Normal effort, no accessory muscle usage, symmetric to auscultation bilaterally, no wheezes or crackles CV: Irregularly irregular rate and rhythm, mechanical heart sound, 2+ lower extremity edema to mid shins bilaterally. Abdomen: Soft, non-tender, non-distended MSI: Normal muscle tone and bulk, skin warm and dry DATA REVIEW ECG and telemetry reviewed Recent Labs 06/06/23 2214 HGB 11.5* Associated attestation - Prince Potter MD - 06/07/2023 3:55 PM EST I have interviewed and examined the patient, and reviewed any relevant data independently. I agree with the examination, impressions and plan as outlined by Regis Little MD The patient is alert and oriented times 3, no aparent distress, stable vital signs. No jugular venous distension, no carotid bruit. Lungs are clear to auscultation bilaterally. S1 and S2 are slightly iregular. [place] mechanical opening and closing valve sounds. No murmur, rub, gallop or thrill auscultated. Abdomen benign, no hepatosplenomegaly, non tender, normal bowel sounds. Good distal pulses, negative Prieto sign bilaterally. No edema bilaterally. Prosthetic aortic valve endocarditis, MSSA, per primary team and ID Paroxysmal atrial fibrillation, rate controlled Chronic use of warfarin, for the mechanical aortic valve and PAF, target INR is 2-3, bridge with heparin as needed May stop amiodarone, no longer needed for rate or rhythm control. Increase dose of metoprolol as needed. documented in this encounter [facility] 06-16-2023 Nurse Note PICC line continues to bleed from site. Able to flush and draw blood from it. Dressing changed once for leaking of blood that had pooled under dressing yesterday at around 0400. Bled again at 0500 through dressing onto bed. Cleaned around site after drawing AM labs and wrapped with gauze, secured with Kerlix and Coban. [facility] 06-15-2023 Plan of care note Problem: Patient Care Overview Goal: Plan of Care Review Outcome: Ongoing Goal: Individualization & Mutuality Outcome: Ongoing Goal: Discharge Needs Assessment Outcome: Ongoing Problem: Fall/Trauma/Injury Risk (Adult) Goal: Fall/Trauma/Injury Risk: Absence of Trauma/Injury/Falls Description: Patient will demonstrate the desired outcomes. Outcome: Ongoing Goal: Knowledge of risk factors/behavior modification Description: Knowledge of risk factors/behavior modification for fall/injury prevention Outcome: Ongoing [facility] 06-15-2023 Plan of care note Patient anxious, requesting AM lorazepam dose early. Will order retime so that he receives it now. [facility] Work Phone: 06-14-2023 Consult note Formatting of th is note is different from the original. Report of PICC Consultation and Evaluation: Patient seen and evaluated for PICC insertion using ultrasound guidance. ID band present, allergies and limb precautions verified with patient/nurse. Skin integrity within normal limits at time of insertion. No evidence of ecchymosis, infiltration, hematoma, edema, or any condition that would prevent safe insertion of a PICC with ultrasound. I have reviewed pertinent laboratory results. Lab Results Component Value Date WBC 15.06 (H) 06/08/2023 HGB 10.2 (L) 06/08/2023 HCT 32.6 (L) 06/08/2023 PLATELET 278 06/13/2023 MCV 90.6 06/08/2023 Lab Results Component Value Date CREATSERUM 1.11 06/14/2023 Lab Results Component Value Date INR 1.3 (H) 06/14/2023 INR 1.4 (H) 06/13/2023 INR 1.5 (H) 06/12/2023 PT 16.3 (H) 06/14/2023 PT 17.3 (H) 06/13/2023 PT 17.7 (H) 06/12/2023 Lab Results Component Value Date PTT 85.3 (H) 06/14/2023 Temp Readings from Last 1 Encounters: 06/14/23 98.6 F (37 C) (Oral) I have discussed the following issues with the ordering Clinician: MD Procedure explained to patient. Anatomical distortion to interfere with placement: nono Arm preference for venous access: Right Arm Patient is alert, cooperative, no distress, appears stated age Patient Teaching: Yes Family Teaching: No Rhine Protocol/Time Out Completed under Procedure Documentation Step 1: Pre-Procedure Verification Includes Consent Form, Order, Consult, H&P and/or Schedule is consistent with planned procedure: yes Reviewed Medication List/Allergy List: yes Relevant radiology images & scans and pathology & biopsy reports properly displayed and labeled reviewed by practitioner: yes Any required blood product, devices, implants, special equipment or supplies available: n/a Consent obtained with laterality defined: yes Relevant lab results available: Yes Step 2: Site Marking Includes Site Marking: yes Step 3: Time Out Includes Patient and Procedure (side/site marked when applicable),: yes Patient Positioning Correct?: Yes The need for antibiotics or fluids to be administered: yes Relevant images displayed (if applicable): yes Care of specimens (if applicable): N/A Rhine Protocol Verification Name of Practitioner attesting all steps of the Rhine Protocol have been completed: jovani Pager: [phone] Pre Procedure Relevant lab results available: Yes PROCEDURE DETAILS: PICC Insertion Procedure Using standard sterile technique access was obtained. Good blood return noted, catheter flushed easily with 10mls 0.9 NS per lumen. Statlock device used to secure PICC. Dressing applied. Pt denies pain at insertion site. PICC Line - Single Lumen 06/14/23 1132 basilic vein (medial side of arm), right 4 Fr (Active) 06/14/23 1132 Present On Admission : no Lumen 1: Lumen 2: Lumen 3: purple Location: basilic vein (medial side of arm), right Device/Lot Number: Regional Facilities Manager/Lot Number: [id number] Size/Length: 4 Fr Inserted Catheter Length (cm): 46 Total Length (cm): 46 Placement Verification: placement verified by x-ray Tip Termination: superior vena cava Guiding Device: ultrasound Indication/Daily Review of Necessity: Inserted By: Registered Nurse Unsuccessful Insertion Attempts: 0 Unsuccessful Attempt Location/Site: Pain Prevention/Patient Tolerance: intradermal injection Removal: Placement Over Guidewire: Additional Comments: Lumen 4: Lumen 5: Catheter Length Distal to Site (cm) 0 06/14/23 1100 Mid-Upper Arm Circumference (cm) 31 06/14/23 1100 Patient tolerated procedure well without any complications Extra insertion note if applicable: PICC inserted by jovani HAYNES and assisted by maura HAYNES [X] Antimicrobial foam disc/dressing. [] Unable to place Antimicrobial foam disc/drsg due to: N/A [X] Curos Caps applied [X] CXR ordered for PICC tip confirmation. Doctor Farnaz TORRES notified of procedure completion and will notify primary RN for PICC clearance and use. [] Obtained labs. ( labeled labs taken to in biohazard bag ) [X] Call light in reach. [X] Bed low and locked. [X] Tray table within reach. Education: Patient/Family informed to notify nurse of any complications including pain, redness, swelling, or leakage post insertion. Central Venous Catheter Insertion Checklist Was the line placed emergently (e.g., during Code Blue or trauma): N/A Before the procedure, did the aggregate conveyor operator Document informed consent. Yes Perform timeout. Yes 3. Stunt Person: If enter sterile field, uses sterile gown and gloves, cap, mask/eye protection. N/A 4. Prep site with ChloraPrep for 30 sec minimum (if femoral 120 sec minimum). Yes 5. Sterile technique to drape patient from head to toe. Yes During the procedure, did the aggregate conveyor operator Maintain a sterile field. Yes Obtain a qualified hydro station operator IF 3 unsuccessful sticks. (except if emergent); document the number of attempts. N/A Change gloves: if a catheter was exchanged over a guide wire before handling the new sterile catheter. N/A Account for the guidewire at all times. Yes After the procedure, did the aggregate conveyor operator Apply a sterile dressing immediately after insertion. Yes Document date and time on the dressing. Yes Perform hand hygiene. Yes All staff wore a mask until sterile dressing placed. Yes Dispose sharps immediately after the procedure. Yes I have completed the Central Venous Catheter Insertion Checklist. [facility] 06-14-2023 Plan of care note Problem: Patient Care Overview Goal: Plan of Care Review Outcome: Ongoing Goal: Individualization & Mutuality Outcome: Ongoing Goal: Discharge Needs Assessment Outcome: Ongoing Goal: Interdisciplinary Rounds/Family Conf Outcome: Ongoing Problem: Fall/Trauma/Injury Risk (Adult) Goal: Fall/Trauma/Injury Risk: Absence of Trauma/Injury/Falls Description: Patient will demonstrate the desired outcomes. Outcome: Ongoing Goal: Knowledge of risk factors/behavior modification Description: Knowledge of risk factors/behavior modification for fall/injury prevention Outcome: Ongoing [facility] 06-13-2023 Consult note Formatting of th is note might be different from the original. Consults Vascular Access Consult Note Arrived at bedside for PICC placement - patient eating dinner and prefers to have PICC placed morning of 06/14. Patient does have good vein options for PICC. Thank you for allowing our team to participate in the care of this patient. Vascular Access Team [phone] [facility] 06-11-2023 Plan of care note Problem: Patient Care Overview Goal: Plan of Care Review Outcome: Ongoing Goal: Individualization & Mutuality Outcome: Ongoing Goal: Discharge Needs Assessment Outcome: Ongoing Goal: Interdisciplinary Rounds/Family Conf Outcome: Ongoing [facility] 06-11-2023 Nurse Note 06/11/23 1451 Patient Choice for Post-Acute Providers Resumption of care? No Establishing care? Yes Level of care for choice Home Health Care Preferred geographic region Discussed and honored Source of list Aidin List was provided to Patient Method of delivery In Person Is the provider part of a joint venture or have a financial relationship with discharging hospital? No Met with patient at bedside to discuss Aidin generated list of available home healthcare providers. Discussed HH services to be provided, expectation of HH services, confirmed pt is homebound and answered all questions. Patient agreeable to have the below agency provide SN for infusion services: [facility], [id number] [place] [address] Fax: [phone] Addendum at [phone]: Patient will also use [facility] for infusion pharmacy: [place], an [place] [facility] [address] [place] [address] NATAN Mills RN [facility] 06-11-2023 Consult note Formatting of th is note might be different from the original. ConsultsVASCULAR ACCESS NOTE: Thank you for your referral to the Vascular Access Team. Consulted for placement of: [] PIV [] Midline [x] PICC [] Arms assessed for device placement, viable vessels identified: No device placed due to: [x] Awaiting final recommendations from ID [] Awaiting approval from nephrology in the presence of CKD 3 or higher [x] Awaiting patient to have blood culture clearance [] Awaiting TPN approval [] Already has adequate access for therapies prescribed [] No viable veins (see description below) [] Patient refused [] Both arms found to have contraindications for line placement [] Continued malposition despite multiple attempts [] Accessed vein successfully, but PICC catheter would not advance [] Patient unable to give consent, no POA/unable to reach POA Additional note: PICC pager [phone] PIV pager [phone] [facility] 06-10-2023 Consult note Associated Order (s): IP CONSULT TO DERMATOLOGY Assessment and Plan [place] shiny plaque with hemorrhagic crust and dilated telangiectasias on right neck - This is consistent with a basal cell carcinoma. Basal cell carcinoma is treated in the outpatient setting with wide local excision vs. Mohs surgery -It is imperative that he follows up with a honest john rocket crew member once discharged for definitive treatment. Offered patient follow up with [facility] derm, but he prefers to establish with a honest john rocket crew member closer to home. If he is unable to find a honest john rocket crew member closer to home, he should call [phone] to schedule an appointment with [facility] dermatology. robby you for allowing us to participate in the care of this patient. Our consult team will sign off today, 06/10/2023. Please contact the dermatology resident electrical controls engineer if you have any further questions. Haley Kenyon MD Dermatology Resident Consult Request neck lesion concern for basal cell carcinoma Requesting service: [facility] History of Present Illness. Patient is a 78 y.o. 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 Dermatology evaluation was requested for suspected NMSC on the neck. Duration/First noticed: year Location: right neck Severity: n/a Associated symptoms: non healing Previous Treatments: none Additional Summarized Information: Patient lives in [place] and would like to establish with a [employer] j[employer] rocket crew member closer to his home for outpatient care. This lesion has not previously been evaluated by dermatology Past Medical History No past medical history on file. Allergies (Medicines reviewed in list at bottom). Markus Constantine Kapadiaana is is allergic to alprazolam. Family History: family history is not on file. Social history: Social History Socioeconomic History Marital status: Tobacco Use Smoking status: Never Passive exposure: Never Smokeless tobacco: Never Substance and Sexual Activity Alcohol use: Never Drug use: Never Social Determinants of Health Food Insecurity: No Food Insecurity (06/06/2023) Hunger Vital Sign Worried About Running Out of Food in the Last Year: Never true Ran Out of Food in the Last Year: Never true Transportation Needs: No Transportation Needs (06/06/2023) PRAPARE - Transportation Lack of Transportation (Medical): No Lack of Transportation (Non-Medical): No Intimate Partner Violence: Not At Risk (06/06/2023) Humiliation, Afraid, Rape, and Kick questionnaire Fear of Current or Ex-Partner: No Emotionally Abused: No Physically Abused: No Sexually Abused: No Housing Stability: Low Risk (06/06/2023) Housing Stability Vital Sign Unable to Pay for Housing in the Last Year: No Number of Places Lived in the Last Year: 1 Unstable Housing in the Last Year: No Review of Systems Full ROS reviewed in admission H&P dated 06/06/2023 9:34 PM. Additional dermatologic ROS items see H&P. Vitals: Temp: [97.5 F (36.4 C)-98.8 F (37.1 C)] 98.8 F (37.1 C) Pulse (Heart Rate): [64-79] 64 Resp Rate: [16-18] 18 BP: (110-133)/(55-73) 116/65 O2 Sat (%): [95 %-100 %] 95 % Physical Exam: WD, WN, NAD. Normal mood and affect. Exam included Check all areas examined: []Scalp []Face []Lips []Eyelids, conjunctiva [x]Neck []Back []Chest []Abd []Buttocks []Genitalia []R arm []L arm []R leg []L leg []Digits, nails []Oropharynx []Lymph []Periph Vascular All normal except: [place] shiny plaque with hemorrhagic crust and dilated telangiectasias on right neck Relevant Labs/Imaging/Pathology -none Current Medications Current Facility-Administered Medications Medication Dose Route Frequency Provider Last Rate Last Admin Acetaminophen (TYLENOL) tablet 650 mg 650 mg Oral Q6H PRN Katiana Cabrera MD 650 mg at 06/06/23 2329 AMIOdarone (PACERONE) tablet 200 mg 200 mg Oral Daily Katiana Cabrera MD 200 mg at 06/10/23 0742 ceFAZolin (ANCEF) 3 g in Sodium chloride 0.9%, with overfill 290 mL IV infusion 3 g Intravenous Q12HNS Candis Adams, DO 24.2 mL/hr at 06/10/23 0745 3 g at 06/10/23 0745 DULoxetine (CYMBALTA) capsule DR 60 mg 60 mg Oral Daily Katiana Cabrera MD 60 mg at 06/10/23 0742 furOSEmide (LASIX) injection 40 mg 40 mg Intravenous Q12H Heike Milan MD 40 mg at 06/10/23 1207 [START ON 06/11/2023] Gentamicin (GARAMYCIN) 60 mg in Sodium chloride 0.9%, with overfill 111.5 mL (total volume) IVPB 60 mg Intravenous Q12HNS Kelvin Pitts, [facility] Heparin 25,000 units in dextrose 5% 250 mL premix infusion 0-30 Units/kg/hr (Dosing Weight) Intravenous Continuous Heike Milan MD 14.8 mL/hr at 06/10/23 1410 15 Units/kg/hr at 06/10/23 1410 LORazepam (ATIVAN) tablet 0.5 mg 0.5 mg Oral BID PRN Katiana Cabrera MD 0.5 mg at 06/10/23 0742 magnesium oxide (MAG-OX) tablet 800 mg 800 mg Oral As directed PRN Katiana Cabrera MD 800 mg at 06/10/23 0633 Or magnesium oxide (MAG-OX) tablet 800 mg 800 mg Per NG tube As directed PRN Katiana Cabrera MD Or Magnesium sulfate 4 g in sterile water 50 ml premix IVPB 4 g Intravenous As directed PRN Katiana Cabrera MD Melatonin tablet 6 mg 6 mg Oral QHS PRN Katiana Cabrera MD 6 mg at 06/08/23 2311 Metoprolol (LOPRESSOR) tablet 50 mg 50 mg Oral BID Katiana Cabrera MD 50 mg at 06/10/23 0742 Ondansetron 4mg/2ml (ZOFRAN) injection 4 mg 4 mg Intravenous Q6H PRN Katiana Cabrera MD Or Ondansetron (ZOFRAN) tablet 4 mg 4 mg Oral Q6H PRN Katiana Cabrera MD Pantoprazole (PROTONIX) tablet DR 40 mg 40 mg Oral Daily Katiana Cabrera MD 40 mg at 06/10/23 0742 Potassium chloride (K-DUR) tablet ER 40-60 mEq 40-60 mEq Oral As directed PRN Katiana Cabrera MD 40 mEq at 06/10/23 0633 Or potassium bicarbonate (EFFER-K) effervescent tablet 25 mEq 25 mEq Per NG tube As directed PRN Katiana Cabrera MD predniSONE (DELTASONE) tablet 20 mg 20 mg Oral Daily Katiana Cabrera MD 20 mg at 06/10/23 0742 Sodium chloride 0.9% IV solution 250 mL 250 mL Intravenous PRN Katiana Cabrera MD Tamsulosin HCl (FLOMAX) capsule 0.4 mg 0.4 mg Oral Daily Katiana Cabrera MD 0.4 mg at 06/10/23 0742 [Held by provider] warfarin (COUMADIN) tablet 6.5 mg 6.5 mg Oral Daily early evening Heike Milan MD 6.5 mg at 06/09/232202 Associated attestation - Lance Shepard MD - 06/11/2023 10:02 PM EST Patient was seen and examined with Dr. Kenyon; I saw and personally examined the patient on 06/10/23. I also discussed the findings and therapeutic plan with Dr. Kenyon, reviewed the entirety of the note and agree with the history, physical examination, and medical decisions as outlined. We are consulted for a lesion on the neck. It has the clinical appearance fairly typical of basal cell carcinoma. We offered outpt followup with us at [facility] for excision but pt declines and would prefer to be treated closer to home. 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 Lance Shepard MD Dermatology [facility] Work Phone: 06-08-2023 Plan of care note Problem: Patient Care Overview Goal: Plan of Care Review Outcome: Ongoing Flowsheets (Taken 06/08/20232026) Plan Of Care Reviewed With: patient Goal: Individualization & Mutuality Outcome: Ongoing Problem: Fall/Trauma/Injury Risk (Adult) Goal: Fall/Trauma/Injury Risk: Absence of Trauma/Injury/Falls Description: Patient will demonstrate the desired outcomes. Outcome: Ongoing [facility] 06-08-2023 Plan of care note Problem: OT - Endurance Goal: Endurance Functional Mobility - Patient will complete distance needed for common household mobility with no greater than 1 rest breaks for improved tolerance to safely complete I/ADL's Outcome: Ongoing [facility] 06-08-2023 Plan of care note Problem: PT - General Goals Goal: Ambulation - Patient will ambulate 250 feet with independence and without an assistive device to improve ability to safely navigate home and community. Outcome: Adequate for Discharge [facility] 06-08-2023 Plan of care note Problem: Patient Care Overview Goal: Plan of Care Review Outcome: Ongoing Goal: Individualization & Mutuality Outcome: Ongoing Goal: Discharge Needs Assessment Outcome: Ongoing Goal: Interdisciplinary Rounds/Family Conf Outcome: Ongoing [facility] 06-07-2023 Hospital Discharge instructions Xu Gaines RN - 06/07/2023 11:55 AM EST Patient Experience Survey Reminder You may receive a survey in the mail within a few weeks regarding your hospitalization. This helps us to improve the care and services we provide at [facility]. We truly appreciate you taking the time to fill this out. We particularly welcome any specific comments you may have (good or bad!) regarding your experience at [facility] so that we may use them to continue to strive towards excellence for our patients. PICC Referral for Patient Continuity of Care PICC Line - Single Lumen 06/14/23 1132 basilic vein (medial side of arm), right 4 Fr (Active) 06/14/23 1132 Present On Admission : no Lumen 1: Lumen 2: Lumen 3: purple Location: basilic vein (medial side of arm), right Device/Lot Number: Regional Facilities Manager/Lot Number: [id number] Size/Length: 4 Fr Inserted Catheter Length (cm): 46 Total Length (cm): 46 Placement Verification: placement verified by x-ray Tip Termination: superior vena cava Guiding Device: ultrasound Indication/Daily Review of Necessity: Inserted By: Registered Nurse Unsuccessful Insertion Attempts: 0 Unsuccessful Attempt Location/Site: Pain Prevention/Patient Tolerance: intradermal injection Removal: Placement Over Guidewire: Additional Comments: Lumen 4: Lumen 5: Catheter Length Distal to Site (cm) 0 06/14/23 1100 Mid-Upper Arm Circumference (cm) 31 06/14/23 1100 PICC/Midline Care and Maintenance Refer to patient education instructions for maintenance, care and supplies. Please instruct patient/significant other as follows: *Dressing change-if dressing is gauze, change within 48 hours and attempt to replace with sterile, transparent dressing with an antimicrobial product. *Dressing change-if dressing is sterile, transparent, change once each week unless it becomes loose, damp or soiled. *Cover completely when bathing or showering. *The secondary catheter securement device should be changed weekly with the dressing or as needed. -Injection Cap: Change per education instructions at least once a week. PICCS require positive or neutral pressure caps. -Flushing: Flush a dwell PICC with saline only unless otherwise specified by the physician. Only use 10ml syringes or larger when flushing, drawing from or injecting into a PICC. -Blood Draws: Blood may be drawn from a PICC. Flush with 10ml of saline before and 20ml after each blood draw. *Post PICC insertion, apply a warm compress to the shoulder for 15 to 20 minutes to help relax the vein. This may be done for the first 24 to 48 hours and then as needed. *Encourage normal use and light exercise of the arm with the PICC in it. -Contact Information For issues or questions call the inserting PICC Service. -[facility]. M-F, 7am to 5:30pm. Pager or leave a message on the answering machine . *Evening/Nights/Weekends and Holidays: The [facility] Nurse will cover PICC Services at [facility] and may trouble shoot, repair and declott PICC lines. Pager . -[facility]. M-F, 8am to 6pm. Pager . *Evenings/Nights/Weekends and Holidays: Call . -[facility]. Pager . documented in this encounter [facility] 06-07-2023 Hospital Discharge instructions Xu Gaines RN - 06/07/2023 11:55 AM EST Patient Experience Survey Reminder You may receive a survey in the mail within a few weeks regarding your hospitalization. This helps us to improve the care and services we provide at [facility]. We truly appreciate you taking the time to fill this out. We particularly welcome any specific comments you may have (good or bad!) regarding your experience at [facility] so that we may use them to continue to strive towards excellence for our patients. PICC Referral for Patient Continuity of Care PICC Line - Single Lumen 06/14/23 1132 basilic vein (medial side of arm), right 4 Fr (Active) 06/14/23 1132 Present On Admission : no Lumen 1: Lumen 2: Lumen 3: purple Location: basilic vein (medial side of arm), right Device/Lot Number: Regional Facilities Manager/Lot Number: [id number] Size/Length: 4 Fr Inserted Catheter Length (cm): 46 Total Length (cm): 46 Placement Verification: placement verified by x-ray Tip Termination: superior vena cava Guiding Device: ultrasound Indication/Daily Review of Necessity: Inserted By: Registered Nurse Unsuccessful Insertion Attempts: 0 Unsuccessful Attempt Location/Site: Pain Prevention/Patient Tolerance: intradermal injection Removal: Placement Over Guidewire: Additional Comments: Lumen 4: Lumen 5: Catheter Length Distal to Site (cm) 0 06/14/23 1100 Mid-Upper Arm Circumference (cm) 31 06/14/23 1100 PICC/Midline Care and Maintenance Refer to patient education instructions for maintenance, care and supplies. Please instruct patient/significant other as follows: *Dressing change-if dressing is gauze, change within 48 hours and attempt to replace with sterile, transparent dressing with an antimicrobial product. *Dressing change-if dressing is sterile, transparent, change once each week unless it becomes loose, damp or soiled. *Cover completely when bathing or showering. *The secondary catheter securement device should be changed weekly with the dressing or as needed. -Injection Cap: Change per education instructions at least once a week. PICCS require positive or neutral pressure caps. -Flushing: Flush a dwell PICC with saline only unless otherwise specified by the physician. Only use 10ml syringes or larger when flushing, drawing from or injecting into a PICC. -Blood Draws: Blood may be drawn from a PICC. Flush with 10ml of saline before and 20ml after each blood draw. *Post PICC insertion, apply a warm compress to the shoulder for 15 to 20 minutes to help relax the vein. This may be done for the first 24 to 48 hours and then as needed. *Encourage normal use and light exercise of the arm with the PICC in it. -Contact Information For issues or questions call the [facility] PICC Service. -[facility]ICC [facility]. M-F, 7am to 5:30pm. Pager or leave a message on the [employer] machine . *Evening/Nights/Weekends and Holidays: The [facility] Stat Nurse will cover PICC Services at [facility] and may trouble shoot, repair and declott PICC lines. Pager . -[facility]. M-F, 8am to 6pm. Pager . *Evenings/Nights/Weekends and Holidays: Call . -[facility] PICC [facility]. Pager . documented in this encounter [facility] Consult note Associated Order (s): IP CONSULT TO INFECTIOUS DISEASE IP CONSULT TO INFECTIOUS DISEASE Consult performed by: Isidro Jimenez MD Consult ordered by: Katiana Cabrera MD INFECTIOUS DISEASE CONSULT NOTE IDENTIFYING INFORMATION PATIENT: Markus Nava REFERRING PROVIDER: Heike Milan MD ADMIT DATE: 06/06/2023 TODAY'S DATE: 06/07/2023 CHIEF COMPLAINT Fevers REASON FOR CONSULT 78 yo M with Hx of aortic valve replacement now with MSSA bacteremia and AV endocarditis ASSESSMENT Markus Nava is a 78 y.o. 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 He denies any recent skin or soft tissue infections. He does not have a history of any hardware or prosthetics other than his AV and PV. Would plan for 6 week course of cefazolin and 2 week course of gentamicin, although will defer starting rifampin at this time given his need for anticoagulation with warfarin. Suspect he will also need lifelong antibiotic prophylaxis once he completes treatment. Hx strep [place] AV endocarditis s/p Ross procedure (1996) c/b graft dilation and aortic insufficiency requiring modified Bentall procedure (2001) Hx diverticulitis s/p proctosigmoidectomy (2016) Hx C diff colitis: reported fully treated at OSH. Recently completed 10-day course of PO vanc for prophylaxis after being started on steroid taper for concern for possible IBD. He denies diarrhea currently and had negative testing at OSH prior to transfer. RECOMMENDATIONS Diagnostics Agree with cardiac surgery evaluation for possible intervention Repeat blood cultures daily for 3 days to ensure durable clearance Therapeutics Transition cefazolin from intermittent to continuous dosing 3g q12h over 12h for anticipated 6 week course Continue gentamicin 80 mg q8h for 2 week course No need for rifampin at this time as patient will likely need to resume warfarin dosing in the future and this would likely make it very difficult for him to achieve therapeutic INR Isolation: none ID team 1 will continue to follow. Please call aforementioned team with questions. Discussed with attending, Dr. Knott. Isidro Jimenez MD Internal Medicine Resident, PGY-2 HISTORY OF PRESENT ILLNESS Markus Nava is a 78 y.o. male with a past medical history of streptococcal endocarditis of the AV requiring AV and PV replacement in 1996 c/b graft dilation and aortic insufficiency requiring modified Bentall procedure in 2021, atrial fibrillation, diverticulitis s/p colectomy (now with c/f Crohn's), anxiety, and depression who is transferred from OSH for MSSA endocarditis of mechanical valve. Infectious disease is consulted for management recommendations. Patient was admitted to [facility] 06/02/23-06/06/23 after presenting with fevers (Tmax 103F at home) and rigors. Denied abdominal pain, vomiting, diarrhea, dysuria, rash, cough at the time of initial presentation. He was febrile on arrival to 103F and initially thought to have a viral syndrome as his girlfriend had recently been ill as well. CXR, UA, covid and flu negative. Then found to have MSSA bacteremia with 2/2 blood cultures positive on 06/02. Urine cultures positive for staph aureus, reportedly with low colony count, so this was attributed to seeding from the bacteremia. He was started on cefazolin and gentamicin. His hospital course was complicated by septic shock requiring levophed and stress dose steroids, as well as afib with RVR requiring amiodarone gtt. FER 06/06/23 showed an AV vegetation measuring 1.1 x 0.7 cm that was freely mobile. ID and cardiology were consulted and decision was made to [facility] to [facility] on 06[facility] surgery evaluation. Per his discharge summary from [facility], a repeat blood culture drawn from a line on 06/03 had no growth in 48 hours. On arrival, patient afebrile and hemodynamically stable off pressors. Chem within normal limits. INR initially 2.5, now 2.1. CBC with WBC 16.38, Hgb 11.5, plt 250. Repeat blood cultures 06/06 pending. He is currently on cefazolin and gentamicin. Cardiac surgery has been consulted. Today patient reports feeling better and states his fevers and rigors have resolved. He is wary about the possibility of surgery, which he would like to avoid if at all possible. Denies any recent infections, rashes, wounds. Of note, patient also had recent hospitalization at [facility] for lower GI bleed from 04/25/23-05/04/23. Colonoscopy 04/27/23 showed patchy moderate mucosal changes in the transverse colon, hepatic flexure, ascending colon, cecum, appendiceal orifice, and ileocecal valve secondary to colitis. Biopsy showed focal acute enteritis in the ileum, focal acute colitis in the cecum, and focal acute colitis from random biopsy in the colon. There was concern for possible new diagnosis of Crohn's disease, and he was started on solumedrol and discharged on PO vanc for c diff ppx as he had recently completed treatment for c diff colitis. REVIEW OF SYSTEMS A complete review of systems was performed and otherwise negative unless noted in HPI. PAST MEDICAL, SURGICAL, FAMILY, and SOCIAL HISTORY No past medical history on file. No past surgical history on file. No family history on file. Social History Socioeconomic History Marital status: Social Determinants of Health Food Insecurity: No Food Insecurity (06/06/2023) Hunger Vital Sign Worried About Running Out of Food in the Last Year: Never true Ran Out of Food in the Last Year: Never true Transportation Needs: No Transportation Needs (06/06/2023) PRAPARE - Transportation Lack of Transportation (Medical): No Lack of Transportation (Non-Medical): No Intimate Partner Violence: Not At Risk (06/06/2023) Humiliation, Afraid, Rape, and Kick questionnaire Fear of Current or Ex-Partner: No Emotionally Abused: No Physically Abused: No Sexually Abused: No Housing Stability: Low Risk (06/06/2023) Housing Stability Vital Sign Unable to Pay for Housing in the Last Year: No Number of Places Lived in the Last Year: 1 Unstable Housing in the Last Year: No INPATIENT MEDICATIONS AMIOdarone 200 mg Oral Daily ceFAZolin 2 g Intravenous Q8HNS DULoxetine 60 mg Oral Daily gentamicin 80 mg Intravenous Q8HNS Magnesium sulfate Metoprolol 50 mg Oral BID Pantoprazole 40 mg Oral Daily predniSONE 20 mg Oral Daily Tamsulosin HCl 0.4 mg Oral Daily Allergies Allergies Allergen Reactions Alprazolam Other Reaction(s): Other Altered mental status-tolerates lorazepam PHYSICAL EXAM Temp: [98 F (36.7 C)-99 F (37.2 C)] 98 F (36.7 C) Pulse (Heart Rate): [77-100] 83 Resp Rate: [17-24] 20 BP: (117-151)/(67-71) 117/67 O2 Sat (%): [97 %-98 %] 97 % Weight: [98.5 kg (217 lb 3.2 oz)] 98.5 kg (217 lb 3.2 oz) Physical Exam Vitals reviewed. Constitutional: General: He is not in acute distress. Appearance: He is not toxic-appearing. HENT: Mouth/Throat: Mouth: Mucous membranes are moist. Pharynx: Oropharynx is clear. Eyes: Extraocular Movements: Extraocular movements intact. Conjunctiva/sclera: Conjunctivae normal. Pupils: Pupils are equal, round, and reactive to light. Cardiovascular: Rate and Rhythm: Normal rate. Rhythm irregular. Pulses: Normal pulses. Comments: Mechanical click Pulmonary: Effort: Pulmonary effort is normal. Comments: Mildly diminished at the bases bilaterally Abdominal: General: Abdomen is flat. Bowel sounds are normal. Palpations: Abdomen is soft. Musculoskeletal: General: Normal range of motion. Cervical back: Normal range of motion and neck supple. Right lower leg: Edema present. Left lower leg: Edema present. Skin: General: Skin is warm and dry. Neurological: General: No focal deficit present. Mental Status: He is alert and oriented to person, place, and time. Psychiatric: Mood and Affect: Mood normal. Behavior: Behavior normal. LABS AND IMAGING Lab Results Component Value Date WBC 16.38 (H) 06/06/2023 HGB 11.5 (L) 06/06/2023 HCT 37.1 (L) 06/06/2023 PLATELET 250 06/06/2023 MCV 90.9 06/06/2023 Lab Results Component Value Date SODIUM 140 06/06/2023 POTASSIUM 3.5 06/06/2023 CHLORIDE 103 06/06/2023 CO2 28 06/06/2023 BUN 16 06/06/2023 CREATSERUM 0.95 06/06/2023 Microbiologic Data (personally reviewed): Blood cultures (2 peripheral) 06/06/23: pending Imaging (personally reviewed): CXR 06/06/23: RIJ CVC in place, no complication. Pulmonary edema. Associated attestation - Vasile Knott MD, PhD - 06/07/2023 5:00 PM EST ID Staff: I have interviewed and examined patient independently (06-07-23) and have discussed case with the ID team. I agree with the findings and recommendations as documented above by Dr. Jimenez. Vasile Knott MD, PhD Division of Infectious Diseases [facility] Work Phone: 06-07-2023 Consult note Associated Order (s): IP CONSULT TO SURGERY - CARDIAC CARDIAC SURGERY CONSULT NOTE Reason for Consult: We were asked by Dr. Heike Milan MD to see Markus Nava and offer our opinion on the evaluation and treatment of bioprosthetic aortic valve endocarditis. Mr. Nava is a 78 y.o. 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 He was initially admitted to [facility] 06/02/23-06/06/23 with fevers and chills. He was found to have MSSA bacteremia and septic shock requiring levophed and stress dose steroids. He also had afib RVR and was started on an amiodarone gtt. 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 He was then transferred to [facility] for further management and surgical evaluation. We are asked to evaluate for surgical aortic valve replacement. Patient denies chest pain, dyspnea, dizziness, syncope, change in bowel habits. He does endorse chronic neck, shoulder, and back pain and chronic BLE edema. Of note, patient does not want a third sternotomy Social:former smoker, rarely drinks Caregiver Support:girlfriend- Thai, adult children Skin: no rashes or lesions Urinary Symptoms:none Nickel Allergy: YES(DEF)/NO: No REVIEW OF SYSTEMS Full review of systems performed. All others are negative except as indicated in HPI. RELEVANT INFORMATION No past medical history on file. No past surgical history on file. No family history on file. Social History has no history on file for tobacco use, alcohol use, and drug use. Social History Tobacco Use Smoking Status Not on file Smokeless Tobacco Not on file Social History Substance and Sexual Activity Alcohol Use None Allergies Allergies Allergen Reactions Alprazolam Other Reaction(s): Other Altered mental status-tolerates lorazepam Current Medications Scheduled Meds: AMIOdarone 200 mg Oral Daily ceFAZolin 2 g Intravenous Q8HNS DULoxetine 60 mg Oral Daily gentamicin 80 mg Intravenous Q8HNS Magnesium sulfate Metoprolol 50 mg Oral BID Pantoprazole 40 mg Oral Daily predniSONE 20 mg Oral Daily Tamsulosin HCl 0.4 mg Oral Daily Continuous Infusions: PRN Meds:Acetaminophen, LORazepam, magnesium oxide OR magnesium oxide OR magnesium sulfate, Magnesium sulfate, Melatonin, Ondansetron 4mg/2ml OR Ondansetron, Potassium chloride OR potassium bicarbonate, Sodium chloride 0.9% DIAGNOSTIC RESULTS Heart Catheterization None available Echocardiogram FER OSH 06/06/2023: EF 50%, normal LV size,, normal RV size and systolic function, mild MV insufficiency, mild TV insufficiency, AV vegetation of the non coronary cusps measuring 1.1 cm x 0.7 cm freely mobile, stable appearing mechanical AV apparatus Imaging N/a Labs: Lab Results Component Value Date WBC 16.38 (H) 06/06/2023 HGB 11.5 (L) 06/06/2023 PLATELET 250 06/06/2023 PTT 41.9 (H) 06/06/2023 INR 2.5 (H) 06/06/2023 SODIUM 140 06/06/2023 POTASSIUM 3.5 06/06/2023 CHLORIDE 103 06/06/2023 CO2 28 06/06/2023 BUN 16 06/06/2023 CALCIUM 8.6 12/24/2004 MAGNESIUM 1.7 06/06/2023 PHOSPHORUS 3.1 12/24/2004 AST 26 11/28/2004 GGT 114 (H) 11/28/2004 ALKPHOS 128 (H) 11/28/2004 BILITOTAL 1.2 11/28/2004 BILIDIRECT 0.1 11/28/2004 ALBUMIN 3.4 11/21/2004 Lab Results Component Value Date CREATSERUM 0.95 06/06/2023 PHYSICAL EXAM Physical Exam Vital Signs (24hrs): Blood pressure 117/67, pulse 83, temperature 98 F (36.7 C), temperature source Oral, resp. rate 20, height 1.829 m (6'), weight 98.5 kg (217 lb 3.2 oz), SpO2 97 %. Pulmonary/Cardiac Hemodynamics Pulse (Heart Rate): 83 Body mass index is 29.46 kg/m . Intake/Output Summary (Last 24 hours) at 06/07/2023 0838 Last data filed at 06/07/2023 0800 Gross per 24 hour Intake 185.74 ml Output 1000 ml Net -814.26 ml Wt Readings from Last 3 Encounters: 06/06/23 98.5 kg (217 lb 3.2 oz) General appearance: alert, cooperative, appears stated age Lungs: clear to auscultation bilaterally Heart: irregularly irregular rhythm Abdomen: soft and non tender, non distended, noted to have abdominal hernia just superior to umbilicus as well as scar from prior open inguinal hernia repair and colon resection Extremities: 2+ BLE edema , Normal ROM. Pulses: 2+ and symmetric Skin: Skin color, texture, turgor normal. No rashes or lesions Neurologic: Grossly normal Psych: appropriate mood and affect for clinical situation ASSESSMENT/PLAN Markus Nava is a 78 y.o. year old male with the following hospital problems: MSSA bacteremia and endocarditis of prosthetic AV valve Initially with septic shock at OSH, now resolved. Found to have MSSA bacteremia. Prosthetic AV vegetation confirmed on OSH FER. - Continue cefazolin 2g q8h and gentamicin 60mg q8h. Per OSH records, rifampin was also considered but concerns for drug interaction with amiodarone and not yet started - Consult ID - Consult cardiology and cardiothoracic surgery - Follow up OSH Bcx to ensure clearance of bacteremia Supratherapeutic INR - resolved Mechanical aortic valve present INR 3.8 on admission to OSH, 3.4 today per OSH records. INR 2.5 on admission here. - Continue holding warfarin, recheck INR in AM. Goal 2.5-3.5, if less than goal will start heparin gtt in case of any surgical interventions Atrial fibrillation CHADSVASC 3 (age, HTN). RVR at OSH, started on amiodarone. - Continue amiodarone 200 mg daily - Continue metoprolol 50mg BID - Telemetry - Cardiology consult as above History of GI bleed Diverticulitis s/p partial colectomy Suspected Crohn's disease History of diverticulitis s/p partial colectomy, but recently with GI bleed in Apr 2023. Colonoscopy with concern for Crohn's disease, discharged on steroid taper. - Continue pantoprazole 40 mg daily - Continue prednisone 20mg daily - Outpatient follow up with GI Urethral stricture s/p dilation Urology consulted and dilation performed at OSH, brown removed prior to transfer. - Continue flomax, monitor for signs of retention Anxiety - Continue ativan 0.5 mg po BID prn and duloxetine 60mg daily Leukocytosis - Likely due to known infection as above, continue to monitor Complexity RECOMMENDATIONS: Patient and plan to be discussed with Dr. Kuldeep Sabillon with further recommendations to follow. For Endocarditis patients -- please notify our service GELACIO if the patient develops any of the following: - acute/worsening heart block on EKG. - hemodynamic instability/cardiogenic shock +/- cardiac ischemia on EKG or evidence of heart failure. - evidence of recurrent SYSTEMIC embolization. - while persistent bacteremia can be an indication for surgery, every attempt is made to maximize antibiotic therapy prior to surgery unless one of the above becomes an issue. This patient was discussed with Dr. Kuldeep Sabillon. Thank you for the consult. Please call with any additional questions or concerns. Laurie Fritz APRN-[facility] Cardiac Surgery REBA Pager/Phone #[phone] [facility] 06-07-2023 Consult note Associated Order (s): IP CONSULT TO CARDIOLOGY CARDIOLOGY CONSULTATION NOTE IMPRESSION AND PLAN Mr. Nava is a 78 y.o. 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 If ID agrees would start rifampin to help reduce biofilm deposition in the setting of aortic graft and discontinue amiodarone. Can increase the metoprolol in place of amiodarone to keep HR < 100 at rest Please obtained FER records and imaging Awaiting CT surgery evaluation, patient is averse to repeat sternotomy Pt staffed with attending physician Dr. Potter Cardiology will follow. Please page with questions. Regis Little MD Cardiovascular Medicine Fellow HISTORY OF PRESENT ILLNESS Markus Nava is a 78 y.o. male admitted to [facility] and the Cardiology service has been consulted by medicine to assist with AV mechanical valve endocarditis Patient admitted to outside hospital on 06/02 in the setting of mild fatigue and high-grade fevers up to 103 F at home. Ultimately patient was found to have MSSA bacteremia complicated by septic shock requiring brief ICU stay, vasopressor support and stress dose steroids. He had a short run of AFib RVR requiring amiodarone infusion. Fer completed 06/06 demonstrated AV valve vegetation concerning for endocarditis. Patient was started on cefazolin and gentamicin given his prosthetic infection. He was transferred to [facility] for further evaluation. Upon arrival patient was found resting comfortably in bed, denies any acute complaints and feels near his baseline. 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 He denies any chest pain, shortness of breath or orthopnea. He does have longstanding lower extremity edema shortly after his valve was replaced in 2001. Reports no recent procedures or instrumentation. Patient has dentures without recent dental procedure. Reports multiple next and scrapes related to hiking activities. More recently patient self diagnosed basal cell carcinoma with help of a oncologist friend (not biopsy proven). This lesion bleeds a lot after shaving. Vitals: HR 90-100, BP 120-150/70, sating well on RA, afebrile Labs: Na 140, K 3.5, Cr 0.95, Mg 1.7, WBC 16, Plt 250, INR 2.5 PAST, FAMILY, AND SOCIAL HISTORY He has no past medical history on file. His family history is not on file. He has no history on file for tobacco use, alcohol use, and drug use. He is allergic to alprazolam. He has a current medication list which includes the following prescription(s): duloxetine, lorazepam, metoprolol, prednisone, warfarin, warfarin, ferrous sulfate, and melatonin, and the following Facility-Administered Medications: acetaminophen, amiodarone, cefazolin, duloxetine, Gentamicin (GARAMYCIN) 80 mg in Sodium chloride 0.9%, with overfill 112 mL (total volume) IVPB, lorazepam, magnesium oxide OR magnesium oxide OR magnesium sulfate, magnesium sulfate, melatonin, metoprolol, ondansetron 4mg/2ml OR ondansetron, pantoprazole, potassium chloride OR potassium bicarbonate, prednisone, sodium chloride 0.9%, tamsulosin hcl. REVIEW OF SYSTEMS A 14-point review of systems is negative except for what is mentioned to be positive elsewhere. PHYSICAL EXAMINATION BP 117/67 (BP Location: Left arm, BP Position: Lying) Pulse 83 Temp 98 F (36.7 C) (Oral) Resp 20 Ht 1.829 m (6') Comment: estimated Wt 98.5 kg (217 lb 3.2 oz) SpO2 97% BMI 29.46 kg/m O2 Device: room air (06/06/23 0127) General: NAD, well developed, well groomed, appears stated age HEENT: NC/AT, EOMI, no scleral icterus or conjunctival injection, MMM, estimated JVP 4-6 cm H20 Respiratory: Normal effort, no accessory muscle usage, symmetric to auscultation bilaterally, no wheezes or crackles CV: Irregularly irregular rate and rhythm, mechanical heart sound, 2+ lower extremity edema to mid shins bilaterally. Abdomen: Soft, non-tender, non-distended MSI: Normal muscle tone and bulk, skin warm and dry DATA REVIEW ECG and telemetry reviewed Recent Labs 06/06/23 2214 HGB 11.5* Associated attestation - Prince Potter MD - 06/07/2023 3:55 PM EST I have interviewed and examined the patient, and reviewed any relevant data independently. I agree with the examination, impressions and plan as outlined by Regis Little MD The patient is alert and oriented times 3, no aparent distress, stable vital signs. No jugular venous distension, no carotid bruit. Lungs are clear to auscultation bilaterally. S1 and S2 are slightly iregular. [place] mechanical opening and closing valve sounds. No murmur, rub, gallop or thrill auscultated. Abdomen benign, no hepatosplenomegaly, non tender, normal bowel sounds. Good distal pulses, negative Prieto sign bilaterally. No edema bilaterally. Prosthetic aortic valve endocarditis, MSSA, per primary team and ID Paroxysmal atrial fibrillation, rate controlled Chronic use of warfarin, for the mechanical aortic valve and PAF, target INR is 2-3, bridge with heparin as needed May stop amiodarone, no longer needed for rate or rhythm control. Increase dose of metoprolol as needed. [facility] Work Phone: 06-06-2023 Plan of care note Problem: Patient Care Overview Goal: Plan of Care Review Outcome: Ongoing Goal: Individualization & Mutuality Outcome: Ongoing Goal: Discharge Needs Assessment Outcome: Ongoing Goal: Interdisciplinary Rounds/Family Conf Outcome: Ongoing [facility] 06-06-2023 History and physical note Hospital Medicine Admission History & Physical Patient: Markus Nava, : 1945, Date of face to face patient encounter: 06/06/2023 Impression / Plan Markus Nava is a 78 y.o. 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 MSSA bacteremia and endocarditis of prosthetic AV valve Initially with septic shock at OSH, now resolved. Found to have MSSA bacteremia. Prosthetic AV vegetation confirmed on OSH FER. - Continue cefazolin 2g q8h and gentamicin 60mg q8h. Per OSH records, rifampin was also considered but concerns for drug interaction with amiodarone and not yet started - Consult ID - Consult cardiology and cardiothoracic surgery - Follow up OSH Bcx to ensure clearance of bacteremia Supratherapeutic INR - resolved Mechanical aortic valve present INR 3.8 on admission to OSH, 3.4 today per OSH records. INR 2.5 on admission here. - Continue holding warfarin, recheck INR in AM. Goal 2.5-3.5, if less than goal will start heparin gtt in case of any surgical interventions Atrial fibrillation CHADSVASC 3 (age, HTN). RVR at OSH, started on amiodarone. - Continue amiodarone 200 mg daily - Continue metoprolol 50mg BID - Telemetry - Cardiology consult as above History of GI bleed Diverticulitis s/p partial colectomy Suspected Crohn's disease History of diverticulitis s/p partial colectomy, but recently with GI bleed in Apr 2023. Colonoscopy with concern for Crohn's disease, discharged on steroid taper. - Continue pantoprazole 40 mg daily - Continue prednisone 20mg daily - Outpatient follow up with GI Urethral stricture s/p dilation Urology consulted and dilation performed at OSH, brown removed prior to transfer. - Continue flomax, monitor for signs of retention Anxiety - Continue ativan 0.5 mg po BID prn and duloxetine 60mg daily Leukocytosis - Likely due to known infection as above, continue to monitor Problem list reviewed at admission. Complexity. Any conditions listed below are present on admission unless otherwise specified. .Chronic Iron Deficiency Anemia - hold home iron supplementation in setting of acute infection DVT prophylaxis with SCDs Anticipated Disposition: pending clinical course Code status is FULL Chief Complaint endocarditis History of Presenting Illness Markus Nava is a 78 y.o. 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 Patient was admitted at [facility] 06/02/23 - 06/06/23. He initially presented with fevers to Tmax 103 F at home. He was found to have MSSA bacteremia with 2/2 blood cultures positive on 06/02. His hospital course was complicated by septic shock requiring levophed and stress dose steroids, as well as A fib with RVR requiring amiodarone drip. FER was done 06/06/23 which demonstrated an AV vegetation. ID and cardiology were consulted at OSH and he was transferred to [facility] for CT surgery evaluation. Upon arrival to [facility], patient complains of feeling cold. Also endorses chronic neck, shoulder, and back pain. Denies chest pain, dyspnea, fevers. History No past medical history on file. PMH as above No past surgical history on file. 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 Former smoker, rare alcohol, no illicit substances Family History family history is not on file. CAD in father Medications / Allergies Prior to Admission Medications Prescriptions DULoxetine [address] Particles capsule DR Sig: Take 1 capsule by mouth daily. LORazepam 1 MG tablet Sig: Take 0.5 tablets by mouth every 6 hours as needed for Anxiety. Metoprolol 50 MG tab regular release Sig: Take 1 tablet by mouth 2 times daily. Warfarin 1 MG tablet Sig: Take 1.5 tablets by mouth daily. 6.5 mg daily on Sun, Mon, Tues, Thurs, Fri, Sat 8mg on Weds ferrous sulfate 325 (65 Fe) MG Tab DR tablet DR Sig: Take 1 tablet by mouth daily. melatonin capsule Sig: Take 1 capsule by mouth at bedtime. predniSONE 20 MG tablet Sig: Take 1 tablet by mouth daily. warfarin 5 MG tablet Sig: Take 1 tablet by mouth daily. 6.5 mg daily on Sun, Mon, Tues, Thurs, Fri, Sat 8mg on Weds Facility-Administered Medications: None Allergies Allergen Reactions Alprazolam Other Reaction(s): Other Altered mental status-tolerates lorazepam Objective Findings BP 151/71 (BP Location: Right arm, BP Position: Lying) Pulse 100 Temp 99 F (37.2 C) (Oral) Resp 24 SpO2 98% Physical Exam Gen: Alert, Awake, NAD Eyes: PERRLA, EOMI ENT: MMM, trachea midline Resp: CTA, normal respiratory effort Cardio: Irregularly irregular, tachycardic, mechanical S2 present, no murmur appreciated. 1+ pitting edema of BLE to mid shins GI: S/NT/ND, NABS. 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 Psych: Ox3, appropriate affect and cognition Lines: Right internal jugular CVC present, dressing c/d/i Data Review WBC/Hgb/Hct/Plts: 16.38/11.5/37.1/250 (06/06 2213) Na/K+/Phos/Mg/Ca: 140/3.5/--/1.7/-- (06/06 2213) Bun/Creat/Cl/CO2/Glucose: 16/0.95/103/28/94 (06/06 2213) Ptt/Pt/Inr: 41.9/26.7/2.5 (06/06 2213) I have reviewed the OSH labs and imaging. Blood cultures 06/02 + MSSA in 2/2 Blood cultures 06/03 NGTD FER OSH 06/06/2023: EF 50%, normal LV size,, normal RV size and systolic function, mild MV insufficiency, mild TV insufficiency, AV vegetation of the non coronary cusps measuring 1.1 cm x 0.7 cm freely mobile, stable appearing mechanical AV apparatus [facility] 06-06-2023 History and physical note Hospital Medicine Admission History & Physical Patient: Markus Nava, : 1945, Date of face to face patient encounter: 06/06/2023 Impression / Plan Markus Nava is a 78 y.o. 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 MSSA bacteremia and endocarditis of prosthetic AV valve Initially with septic shock at OSH, now resolved. Found to have MSSA bacteremia. Prosthetic AV vegetation confirmed on OSH FER. - Continue cefazolin 2g q8h and gentamicin 60mg q8h. Per OSH records, rifampin was also considered but concerns for drug interaction with amiodarone and not yet started - Consult ID - Consult cardiology and cardiothoracic surgery - Follow up OSH Bcx to ensure clearance of bacteremia Supratherapeutic INR - resolved Mechanical aortic valve present INR 3.8 on admission to OSH, 3.4 today per OSH records. INR 2.5 on admission here. - Continue holding warfarin, recheck INR in AM. Goal 2.5-3.5, if less than goal will start heparin gtt in case of any surgical interventions Atrial fibrillation CHADSVASC 3 (age, HTN). RVR at OSH, started on amiodarone. - Continue amiodarone 200 mg daily - Continue metoprolol 50mg BID - Telemetry - Cardiology consult as above History of GI bleed Diverticulitis s/p partial colectomy Suspected Crohn's disease History of diverticulitis s/p partial colectomy, but recently with GI bleed in Apr 2023. Colonoscopy with concern for Crohn's disease, discharged on steroid taper. - Continue pantoprazole 40 mg daily - Continue prednisone 20mg daily - Outpatient follow up with GI Urethral stricture s/p dilation Urology consulted and dilation performed at OSH, brown removed prior to transfer. - Continue flomax, monitor for signs of retention Anxiety - Continue ativan 0.5 mg po BID prn and duloxetine 60mg daily Leukocytosis - Likely due to known infection as above, continue to monitor Problem list reviewed at admission. Complexity. Any conditions listed below are present on admission unless otherwise specified. .Chronic Iron Deficiency Anemia - hold home iron supplementation in setting of acute infection DVT prophylaxis with SCDs Anticipated Disposition: pending clinical course Code status is FULL Chief Complaint endocarditis History of Presenting Illness Markus Nava is a 78 y.o. 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 Patient was admitted at [facility] 06/02/23 - 06/06/23. He initially presented with fevers to Tmax 103 F at home. He was found to have MSSA bacteremia with 2/2 blood cultures positive on 06/02. His hospital course was complicated by septic shock requiring levophed and stress dose steroids, as well as A fib with RVR requiring amiodarone drip. FER was done 06/06/23 which demonstrated an AV vegetation. ID and cardiology were consulted at OSH and he was transferred to [facility] for CT surgery evaluation. Upon arrival to [facility], patient complains of feeling cold. Also endorses chronic neck, shoulder, and back pain. Denies chest pain, dyspnea, fevers. History No past medical history on file. PMH as above No past surgical history on file. 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 Former smoker, rare alcohol, no illicit substances Family History family history is not on file. CAD in father Medications / Allergies Prior to Admission Medications Prescriptions DULoxetine [address] Particles capsule DR Sig: Take 1 capsule by mouth daily. LORazepam 1 MG tablet Sig: Take 0.5 tablets by mouth every 6 hours as needed for Anxiety. Metoprolol 50 MG tab regular release Sig: Take 1 tablet by mouth 2 times daily. Warfarin 1 MG tablet Sig: Take 1.5 tablets by mouth daily. 6.5 mg daily on Sun, Sun, , , Sun, Sat 8mg on ferrous sulfate 325 (65 Fe) MG Tab DR tablet Sig: Take 1 tablet by mouth daily. melatonin capsule Sig: Take 1 capsule by mouth at bedtime. predniSONE 20 MG tablet Sig: Take 1 tablet by mouth daily. warfarin 5 MG tablet Sig: Take 1 tablet by mouth daily. 6.5 mg daily on Sun, Mon, Tues, Th, Fri, Sat 8mg on Facility-Administered Medications: None Allergies Allergen Reactions Alprazolam Other Reaction(s): Other Altered mental status-tolerates lorazepam Objective Findings BP 151/71 (BP Location: Right arm, BP Position: Lying) Pulse 100 Temp 99 F (37.2 C) (Oral) Resp 24 SpO2 98% Physical Exam Gen: Alert, Awake, NAD Eyes: PERRLA, EOMI ENT: MMM, trachea midline Resp: CTA, normal respiratory effort Cardio: Irregularly irregular, tachycardic, mechanical S2 present, no murmur appreciated. 1+ pitting edema of BLE to mid shins GI: S/NT/ND, NABS. 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 Psych: Ox3, appropriate affect and cognition Lines: Right internal jugular CVC present, dressing c/d/i Data Review WBC/Hgb/Hct/Plts: 16.38/11.5/37.1/250 (06/06 2213) Na/K+/Phos/Mg/Ca: 140/3.5/--/1.7/-- (06/06 2213) Bun/Creat/Cl/CO2/Glucose: 16/0.95/103/28/94 (06/06 2213) Ptt/Pt/Inr: 41.9/26.7/2.5 (06/06 2213) I have reviewed the OSH labs and imaging. Blood cultures 06/02 + MSSA in 2/2 Blood cultures 06/03 NGTD FER OSH 06/06/2023: EF 50%, normal LV size,, normal RV size and systolic function, mild MV insufficiency, mild TV insufficiency, AV vegetation of the non coronary cusps measuring 1.1 cm x 0.7 cm freely mobile, stable appearing mechanical AV apparatus documented in this encounter [facility] 06-06-2023 History and physical note Hospital Medicine Admission History & Physical Patient: Markus Fitch Elijah, : 1945, Date of face to face patient encounter: 06/06/2023 Impression / Plan Markus Nava is a 78 y.o. 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 MSSA bacteremia and endocarditis of prosthetic AV valve Initially with septic shock at OSH, now resolved. Found to have MSSA bacteremia. Prosthetic AV vegetation confirmed on OSH FER. - Continue cefazolin 2g q8h and gentamicin 60mg q8h. Per OSH records, rifampin was also considered but concerns for drug interaction with amiodarone and not yet started - Consult ID - Consult cardiology and cardiothoracic surgery - Follow up OSH Bcx to ensure clearance of bacteremia Supratherapeutic INR - resolved Mechanical aortic valve present INR 3.8 on admission to OSH, 3.4 today per OSH records. INR 2.5 on admission here. - Continue holding warfarin, recheck INR in AM. Goal 2.5-3.5, if less than goal will start heparin gtt in case of any surgical interventions Atrial fibrillation CHADSVASC 3 (age, HTN). RVR at OSH, started on amiodarone. - Continue amiodarone 200 mg daily - Continue metoprolol 50mg BID - Telemetry - Cardiology consult as above History of GI bleed Diverticulitis s/p partial colectomy Suspected Crohn's disease History of diverticulitis s/p partial colectomy, but recently with GI bleed in Apr 2023. Colonoscopy with concern for Crohn's disease, discharged on steroid taper. - Continue pantoprazole 40 mg daily - Continue prednisone 20mg daily - Outpatient follow up with GI Urethral stricture s/p dilation Urology consulted and dilation performed at OSH, brown removed prior to transfer. - Continue flomax, monitor for signs of retention Anxiety - Continue ativan 0.5 mg po BID prn and duloxetine 60mg daily Leukocytosis - Likely due to known infection as above, continue to monitor Problem list reviewed at admission. Complexity. Any conditions listed below are present on admission unless otherwise specified. .Chronic Iron Deficiency Anemia - hold home iron supplementation in setting of acute infection DVT prophylaxis with SCDs Anticipated Disposition: pending clinical course Code status is FULL Chief Complaint endocarditis History of Presenting Illness Markus Nava is a 78 y.o. 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 Patient was admitted at [facility] 06/02/23 - 06/06/23. He initially presented with fevers to Tmax 103 F at home. He was found to have MSSA bacteremia with 2/2 blood cultures positive on 06/02. His hospital course was complicated by septic shock requiring levophed and stress dose steroids, as well as A fib with RVR requiring amiodarone drip. FER was done 06/06/23 which demonstrated an AV vegetation. ID and cardiology were consulted at OSH and he was transferred to [facility] for CT surgery evaluation. Upon arrival to [facility], patient complains of feeling cold. Also endorses chronic neck, shoulder, and back pain. Denies chest pain, dyspnea, fevers. History No past medical history on file. PMH as above No past surgical history on file. 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 Former smoker, rare alcohol, no illicit substances Family History family history is not on file. CAD in father Medications / Allergies Prior to Admission Medications Prescriptions DULoxetine [address] Particles capsule DR Sig: Take 1 capsule by mouth daily. LORazepam 1 MG tablet Sig: Take 0.5 tablets by mouth every 6 hours as needed for Anxiety. Metoprolol 50 MG tab regular release Sig: Take 1 tablet by mouth 2 times daily. Warfarin 1 MG tablet Sig: Take 1.5 tablets by mouth daily. 6.5 mg daily on Sun, Mon, Tues, Thurs, Fri, Sat 8mg on ferrous sulfate 325 (65 Fe) MG Tab DR tablet DR Sig: Take 1 tablet by mouth daily. melatonin capsule Sig: Take 1 capsule by mouth at bedtime. predniSONE 20 MG tablet Sig: Take 1 tablet by mouth daily. warfarin 5 MG tablet Sig: Take 1 tablet by mouth daily. 6.5 mg daily on Sun, Mon, , , Sun, Sat 8mg on Facility-Administered Medications: None Allergies Allergen Reactions Alprazolam Other Reaction(s): Other Altered mental status-tolerates lorazepam Objective Findings BP 151/71 (BP Location: Right arm, BP Position: Lying) Pulse 100 Temp 99 F (37.2 C) (Oral) Resp 24 SpO2 98% Physical Exam Gen: Alert, Awake, NAD Eyes: PERRLA, EOMI ENT: MMM, trachea midline Resp: CTA, normal respiratory effort Cardio: Irregularly irregular, tachycardic, mechanical S2 present, no murmur appreciated. 1+ pitting edema of BLE to mid shins GI: S/NT/ND, NABS. 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 Psych: Ox3, appropriate affect and cognition Lines: Right internal jugular CVC present, dressing c/d/i Data Review WBC/Hgb/Hct/Plts: 16.38/11.5/37.1/250 (06/06 2213) Na/K+/Phos/Mg/Ca: 140/3.5/--/1.7/-- (06/06 2213) Bun/Creat/Cl/CO2/Glucose: 16/0.95/103/28/94 (06/06 2213) Ptt/Pt/Inr: 41.9/26.7/2.5 (06/06 2213) I have reviewed the OSH labs and imaging. Blood cultures 06/02 + MSSA in 2/2 Blood cultures 06/03 NGTD FER OSH 06/06/2023: EF 50%, normal LV size,, normal RV size and systolic function, mild MV insufficiency, mild TV insufficiency, AV vegetation of the non coronary cusps measuring 1.1 cm x 0.7 cm freely mobile, stable appearing mechanical AV apparatus documented in this encounter [facility] 04-05-2021 Note [facility] [employer] [facility] 03-29-2021 Note [facility] [employer] [facility] 03-19-2021 Note Problem: Restraint: Goal: Remain safe while in restraints and once discontinued Outcome: Not Progressing Note: Restraint care provided Q2. Cont assessment on removal [facility] [employer] [facility] Evaluation note Diagnosis Endocarditis- Primary Endocarditis, valve unspecified, unspecified cause Acute bacterial endocarditis Acute and subacute bacterial endocarditis Anxiety Anxiety state, unspecified Chronic back pain Backache, unspecified H/O mechanical aortic valve replacement Heart valve replaced by other means Staphylococcus aureus bacteremia Bacteremia Paroxysmal atrial fibrillation Atrial fibrillation History of gastrointestinal hemorrhage Personal history of other diseases of digestive system Urethral stricture Urethral stricture, unspecified documented [facility] this [facility] Endocarditis- Primary Endocarditis, valve unspecified, unspecified cause Acute bacterial endocarditis Acute and subacute bacterial endocarditis Anxiety Anxiety state, unspecified Chronic back pain Backache, unspecified H/O mechanical aortic valve replacement Heart valve replaced by other means Staphylococcus aureus bacteremia Bacteremia Paroxysmal atrial fibrillation Atrial fibrillation History of gastrointestinal hemorrhage Personal history of other diseases of digestive system Urethral stricture Urethral stricture, unspecified [facility] this [facility] Diagnosis Acute bacterial endocarditis Acute and subacute bacterial endocarditis documented [facility] (Routine) Specialty Diagnoses / Procedures Referred By Lazaro guerrier Referred To Contact [facility] [address] [place] [phone] Referral ID Status Reason Start Date Expiration Date Visits Re quested Visits Authorized * Transfer of Care (Routine) - New Request Specialty Diagnoses / Procedures Referred By Lazaro guerrier Referred To Contact Social Work Diagnoses Acute bacterial endocarditis Wiley Covington MD [address] [place] [address] Referral ID Status Reason Start Date Expiration Date V isits Requested Visits Authorized [id number] New Request 06/18/2023 07/12/2024 1 1 * (Routine) Specialty Diagnoses / Procedures Referred By Lazaro guerrier Referred To Contact [facility] [address] [place] [address] Referral ID Status Reason Start Date Expiration Date Visits Re quested Visits Authorized * Consultation (Routine) - New Request Specialty Diagnoses / Procedures Referred By Contac t Referred To Contact Cardiac Surgery Diagnoses Acute bacterial endocarditis Wiley Covington MD [address] [address] Referral ID Status Reason Start Date Expiration Date V isits Requested Visits Authorized [id number] New Request 06/15/2023 07/09/2024 1 1 * Radiology (Routine) - New Request Specialty Diagnoses / Procedures Referred By Contac t Referred To Contact Diagnoses Acute bacterial endocarditis Procedures ECHOCARDIOGRAM TRANSESOPHAGEAL (FER) [place] ECHO TRANSESOPHAG R-T 2D W/PRB IMG ACQUISJ I&R Wiley Covington MD [address] [address] Referral ID Status Reason Start Date Expiration Date V isits Requested Visits Authorized [id number] New Request 06/15/2023 07/09/2024 1 1 * Consultation (Routine) - New Request Specialty Diagnoses / Procedures Referred By Contac t Referred To Contact Infectious Diseases Diagnoses Acute bacterial endocarditis Wiley Covington MD [address] [phone] Referral ID Status Reason Start Date Expiration Date V isits Requested Visits Authorized [id number] New Request 06/15/2023 07/09/2024 1 1 * (Routine) - New Request Specialty Diagnoses / Procedures Referred By Contac t Referred To Contact Diagnoses Acute bacterial endocarditis Wiley Covington MD [address] [place] [address] Referral ID Status Reason Start Date Expiration Date V isits Requested Visits Authorized [id number] New Request 06/15/2023 07/09/2024 1 1 * Radiology (Routine) - New Request Specialty Diagnoses / Procedures Referred By Contac t Referred To Contact Diagnoses Acute bacterial endocarditis Procedures ECHOCARDIOGRAM TRANSESOPHAGEAL (FER) [place] ECHO TRANSESOPHAG R-T 2D W/PRB IMG ACQUMECCA I&R Heydi, Kelvin Krishnamurthy MD, PhD [address] [facility] [place] [id number] Referral ID Status Reason Start Date Expiration Date V isits Requested Visits Authorized [id number] New Request 06/13/2023 07/07/2024 1 1 * (Routine) Specialty Diagnoses / Procedures Referred By Contac t Referred To Contact [facility] [address] [place] [address] Referral ID Status Reason Start Date Expiration Date Visits Re quested Visits Authorized * Radiology (Routine) - New Request Specialty Diagnoses / Procedures Referred By Contac t Referred To Contact Procedures ECG Shirley Rossi, [employer] [address] [place] [phone] Referral ID Status Reason Start Date Expiration Date V isits Requested Visits Authorized [id number] New Request 06/11/2023 07/05/2024 1 1 * (Routine) Specialty Diagnoses / Procedures Referred By Contac t Referred To Contact [facility] [address] [place] [address] Referral ID Status Reason Start Date Expiration Date Visits Re quested Visits Authorized * (Routine) Specialty Diagnoses / Procedures Referred By Contac t Referred To Contact [facility] [address] [place] [phone] Referral ID Status Reason Start Date Expiration Date Visits Re quested Visits Authorized * (Routine) Specialty Diagnoses / Procedures Referred By Contac t Referred To Contact [facility] [address] [place] [address] Referral ID Status Reason Start Date Expiration Date Visits Re quested Visits Authorized * Unlisted Procedure Code (Routine) - Pending Review Specialty Diagnoses / Procedures Referred By Contac t Referred To Contact Procedures DVT/VTE RISK ASSESSMENT Katiana Cabrera MD [address] [place] [address] [place], [place] [id number] Referral ID Status Reason Start Date Expiration Date V isits Requested Visits Authorized [id number] Pending Review 06/06/2023 06/30/2024 1 1 * Radiology (Emergency) - Pending Review Specialty Diagnoses / Procedures Referred By Contac t Referred To Contact Procedures ECG Katiana Cabrera MD [address] [place] [address] Referral ID Status Reason Start Date Expiration Date V isits Requested Visits Authorized [id number] Pending Review 06/06/2023 06/30/2024 1 1 [facility] Summary Purpose Family History No Family History Records FoundNo Family History Records FoundNo Family History Records FoundNo Family History Records FoundNo Family History Records Found Advance Directives No Advanced Directives Records FoundLatest Code Status on File Code Status Date Activated Date Inactivated Comments Full Code 06/06/2023 10:33 PM Reason for Referral Specialty Diagnoses / Procedures Referred By Contac t Referred To Contact Social Work Diagnoses Acute bacterial endocarditis Wiley Covington MD [address] [address] Referral ID Status Reason Start Date Expiration Date V isits Requested Visits Authorized [id number] New Request 06/18/2023 07/12/2024 1 1 Specialty Diagnoses / Procedures Referred By Contac t Referred To Contact [facility] [address] [place] [address] Referral ID Status Reason Start Date Expiration Date Visits Re quested Visits Authorized Specialty Diagnoses / Procedures Referred By Contac t Referred To Contact Cardiac Surgery Diagnoses Acute bacterial endocarditis Wiley Covington MD [address] [phone] Referral ID Status Reason Start Date Expiration Date V isits Requested Visits Authorized [id number] New Request 06/15/2023 07/09/2024 1 1 Specialty Diagnoses / Procedures Referred By Contac t Referred To Contact Diagnoses Acute bacterial endocarditis Procedures ECHOCARDIOGRAM TRANSESOPHAGEAL (FER) [place] ECHO TRANSESOPHAG R-T 2D W/PRB IMG ACQUISJ I&R Wiley Covington MD [address] [address] Referral ID Status Reason Start Date Expiration Date V isits Requested Visits Authorized [id number] New Request 06/15/2023 07/09/2024 1 1 Specialty Diagnoses / Procedures Referred By Contac t Referred To Contact Infectious Diseases Diagnoses Acute bacterial endocarditis Wiley Covington MD [address] [address] Referral ID Status Reason Start Date Expiration Date V isits Requested Visits Authorized [id number] New Request 06/15/2023 07/09/2024 1 1 Specialty Diagnoses / Procedures Referred By Contac t Referred To Contact Diagnoses Acute bacterial endocarditis Wiley Covington MD [address] [place] [address], [place] [address] Referral ID Status Reason Start Date Expiration Date V isits Requested Visits Authorized [id number] New Request 06/15/2023 07/09/2024 1 1 Specialty Diagnoses / Procedures Referred By Contac t Referred To Contact Diagnoses Acute bacterial endocarditis Procedures ECHOCARDIOGRAM TRANSESOPHAGEAL (FER) KS ECHO TRANSESOPHAG R-T 2D W/PRB IMG TRI Santo[facility] Kelvin Soliz MD, PhD [address] [place] [address] Referral ID Status Reason Start Date Expiration Date V isits Requested Visits Authorized [id number] New Request 06/13/2023 07/07/2024 1 1 Specialty Diagnoses / Procedures Referred By Contac t Referred To Contact Procedures DVT/VTE RISK ASSESSMENT Katiana Cabrera MD [address] [place] [address] Referral ID Status Reason Start Date Expiration Date V isits Requested Visits Authorized [id number] Pending Review 06/06/2023 06/30/2024 1 1 Additional Source Comments (unrecognized sect ion and content) No Status Records FoundNo Status Records FoundNo Status Records FoundNo Status Records FoundNo Status Records Found INFORMATION SOURCE (unrecogn ized section and content) DATE CREATED AUTHOR 11/28/2017 [facility] DATE CREATED AUTHOR AUTHOR'S ORGANIZ ATION 03/07/2022 [facility] DATE CREATED AUTHOR AUTHOR'S ORGANIZ ATION 07/25/2023 [facility] DATE CREATED AUTHOR AUTHOR'S ORGANIZ ATION 06/23/2024 [facility] DATE CREATED AUTHOR AUTHOR'S ORGANIZ ATION 12/14/2024 [facility] Reason for Visit (unrecogniz ed section and content) Specialty Diagnoses / Procedures Referred By Contac t Referred To Contact Diagnoses valve vegatation Katiana Cabrera MD [address] [place] [phone] [facility] [address] [place] [address] Referral ID Status Reason Start Date Expiration Date Visits Re quested Visits Authorized [id number] 1 1 Specialty Diagnoses / Procedures Referred By Contac t Referred To Contact Diagnoses Acute bacterial endocarditis Procedures ECHOCARDIOGRAM TRANSESOPHAGEAL (FER) KS ECHO TRANSESOPHAG R-T 2D W/PRB IMG TRI [facility] Wiley Covington MD [address] [place] [address] Referral ID Status Reason Start Date Expiration Date V isits Requested Visits Authorized [id number] New Request 06/15/2023 07/09/2024 1 1 Scheduled Active and Recently Administ ered Medications (unrecognized section and content) Medication Order 06/17/2023 06/18/2023 06/19/2023 ceFAZolin (ANCEF) 3 g in Sodium chloride 0.9%, with overfill 290 mL IV infusion 3 g, Intravenous, at 24.2 mL/hr, Administer over 12 Hours, EVERY 12 HOURS NON-STANDARD, First dose on Lisa 06/07/23 at 2100, Until Discontinued 0558 (Rate/Dose Verify - Provider: Barbara Leigh RN)0822 ($$New Bag$$ - Provider: Samir Sesay RN)2011 ($$New Bag$$ - Provider: Barbara Leigh RN) 0026 (Rate/Dose Verify - Provider: Barbara Leigh RN)0610 (Rate/Dose Verify - Provider: Barbara Leigh RN)0833 ($$New Bag$$ - Provider: Irena Hansen RN)1106 (Rate/Dose Verify - Provider: Irena Hansen RN)1400 (Rate/Dose Verify - Provider: Irena Hansen RN)1800 (Rate/Dose Verify - Provider: Irena Hansen RN)1834 (Rate/Dose Verify - Provider: Asha Prakash, RN)1834 (Rate/Dose Verify - Provider: Asha Prakash, RN)204 (Rate/Dose Verify - Provider: Asha Prakash RN)2044 ($$New Bag$$ - Provider: Barbara Leigh RN)2120 (Paused - Provider: Asha Parkash RN)2125 (Restarted - Provider: Asha Prakash RN) 0221 (Rate/Dose Verify - Provider: Barbara Leigh RN)0654 (Rate/Dose Verify - Provider: Barbara Leigh RN)0853 (Rate/Dose Verify - Provider: Asha Prakash RN)09 (Stopped - Provider: Asha Prakash RN)09 (Stopped - Provider: Asha Prakash RN)0903 ($$New Bag$$ - Provider: Asha Prakash RN)1105 (Stopped - Provider: Asha Prakash RN - Comment: Started Home Continuous Ancef)2100 (Due) DULoxetine (CYMBALTA) capsule DR 60 mg 60 mg, Oral, DAILY, First dose on Sun06/07/23 at 0900, Until Discontinued, Swallow capsule whole; do not crush or chew. May add contents of capsule to apple juice or applesauce (but NOT chocolate) taking care not to crush the pellets and damage the enteric coating. 0826 (Given - Provider: Samir Sesay RN) 0910 (Given - Provider: Irena Hansen RN) 0906 (Given - Provider: Asha Prakash RN) Gentamicin (GARAMYCIN) 60 mg in Sodium chloride 0.9%, with overfill 111.5 mL (total volume) IVPB (COMPLETED) 60 mg, Intravenous, Administer over 30 Minutes, EVERY 12 HOURS NON-STANDARD, 16 doses, First dose (after last modification) on Sun06/11/23 at 2100, Last dose on Sun06/19/23 at 0900 0826 ($$New Bag$$ - Provider: Samir Sesay RN)0857 (Stopped - Provider: Samir Sesay RN)2015 ($$New Bag$$ - Provider: Barbara Leigh, IVY)2016 (Rate/Dose Verify - Provider: Irena Hansen RN)2044 (Stopped - Provider: Barbara Leigh RN) 0913 ($$New Bag$$ - Provider: Irena Hansen RN)0958 (Stopped - Provider: Irena Hansen RN)2048 ($$New Bag$$ - Provider: Barbara Leigh RN)2119 (Stopped - Provider: Barbara Leigh RN) 0906 ($$New Bag$$ - Provider: Asha Prakash RN)0933 (Stopped - Provider: Asha Prakash RN) LORazepam (ATIVAN) tablet 0.5 mg 0.5 mg, Oral, EVERY 12 HOURS, First dose (after last modification) on Sun06/15/23 at 1745, Until Discontinued 0556 (Given - Provider: Barbara Leigh RN)1733 (Given - Provider: Samir Sesay RN) 0609 (Given - Provider: Barbara Leigh RN)1831 (Given - Provider: Irena Hansen RN) 0557 (Given - Provider: Barbara Leigh RN)1800 (Due - Provider: Osiel Carrillo [facility]) Metoprolol (LOPRESSOR) tablet 50 mg 50 mg, Oral, 2 TIMES DAILY, First dose on Sun06/06/23 at 2245, Until Discontinued 0826 (Given - Provider: Samir Sesay RN)1733 (Given - Provider: Samir Sesay RN) 0910 (Given - Provider: Irena Hansen RN)183 (Given - Provider: Irena Hansen RN) 0906 (Given - Provider: Asha Prakash RN)1700 (Due) Pantoprazole (PROTONIX) tablet DR 40 mg 40 mg, Oral, DAILY, First dose on Sun06/07/23 at 0900, Until Discontinued, Swallow whole; do not crush or chew., Indications: GERD 0827 (Given - Provider: Samir Sesay RN) 0910 (Given - Provider: Irena Hansen RN) 0906 (Given - Provider: Asha Prakash RN) predniSONE (DELTASONE) tablet 15 mg 15 mg, Oral, DAILY, First dose (after last modification) on Sun06/16/23 at 0900, Until Discontinued 0827 (Given - Provider: Samir Sesay RN) 0910 (Given - Provider: Irena Hansen RN) 0906 (Given - Provider: Asha Prakash RN) Tamsulosin HCl (FLOMAX) capsule 0.4 mg 0.4 mg, Oral, DAILY, First dose on Sun06/07/23 at 0900, Until Discontinued, Slow release product. Do not chew or crush 0826 (Given - Provider: Samir Sesay RN) 0910 (Given - Provider: Irena Hansen RN) 0906 (Given - Provider: Asha Prakash RN) warfarin (COUMADIN) tablet 6.5 mg 6.5 mg, Oral, DAILY EARLY EVENING, First dose (after last modification) on 06/17/23 at 1800, Until Discontinued, Swallow tablet whole; do not crush, split or chew. Contact pharmacy if alternate route or dose is needed. 1733 (Given - Provider: Samir Sesay RN) 1832 (Given - Provider: Irena Hansen RN) 1800 (Due) Continuous Medication Order 06/17/2023 06/18/2023 06/19/2023 Heparin 25,000 units in dextrose 5% 250 mL premix infusion (CANCELED) INTERMEDIATE/CARDIAC SLIDING SCALE FOR PATIENTS EQUAL TO OR GREATER THAN 65KG: Initiate dose at 12 units/kg/hr. If PTT is less than 47, increase dose by 3 units/kg/hr. If PTT is 47-60, increase dose by 2 units/kg/hr. If PTT is 61-71, increase dose by 1 unit/kg/hr. If PTT is 72-95, no change. If PTT is 96-111, decrease dose by 1 unit/kg/hr. If PTT is 112-126, hold infusion for 60 minutes and decrease dose by 2 units/kg/hr. If PTT greater than 126, hold infusion and check PTT every 2 hours. Once PTT is in goal range or below, restart infusion at 3 units/kg/hr lower than the most recent dose. Note: Round PTT to nearest whole number (e.g. 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 0002 (Paused - Provider: Samir Seasy RN)0006 (Restarted - Provider: Samir Sesay RN)0557 (Rate/Dose Verify - Provider: Barbara Leigh, IVY)1347 (Rate/Dose Change - Provider: Samir Sesay RN)1347 (Rate/Dose Verify - Provider: Samir Sesay RN)1350 (Rate/Dose Verify - Provider: Samir Sesay RN)1605 ($$New Bag$$ - Provider: Samir Sesay RN)2000 (Rate/Dose Verify - Provider: Barbara Leigh RN) 0025 (Rate/Dose Verify - Provider: Barbara Leigh RN)0610 (Rate/Dose Verify - Provider: Barbara Leigh RN)5281 (Stopped - Provider: Irena Hansen RN) PRN Medication Order 06/17/2023 06/18/2023 06/19/2023 Acetaminophen (TYLENOL) tablet 650 mg 650 mg, Oral, EVERY 6 HOURS NEEDED, Starting on Sun06/06/23 at 2232, Until Discontinued, Mild Pain, Oral temp > 100.4 F, Maximum dose of acetaminophen is 4000 mg from all sources in 24 hours. magnesium oxide (MAG-OX) tablet 800 mg(Linked Group 1) 800 mg, Oral, ADMINISTER DIRECTED, Starting on Sun06/06/23 at 2326, Until Discontinued, See admin instructions, Medicine Electrolyte Replacement Protocol, Administer for magnesium level of 1.6-1.9 mg/dL. NOT APPROPRIATE for Dialysis Patients, those with CrCl less than 30 mL/min, weight less than 50 kg; or for history of renal transplant. Draw magnesium level with next day morning labs. magnesium oxide (MAG-OX) tablet 800 mg(Linked Group 1) 800 mg, Per NG tube, ADMINISTER DIRECTED, Starting on Sun06/06/23 at 2326, Until Discontinued, See admin instructions, Medicine Electrolyte Replacement Protocol, Administer for magnesium level of 1.6-1.9 mg/dL. NOT APPROPRIATE for Dialysis Patients, those with CrCl less than 30 mL/min, weight less than 50 kg; or for history of renal transplant. Draw magnesium level with next day morning labs. Magnesium sulfate 4 g in sterile water 50 ml premix IVPB(Linked Group 1) 4 g, Intravenous, Administer over 4 Hours, ADMINISTER DIRECTED, Starting on Sun06/06/23 at 2326, Until Discontinued, Other, Medicine Electrolyte Replacement Protocol, Administer for Magnesium level less than or equal to 1.5 mg/dL. NOT APPROPRIATE for Dialysis Patients, those with CrCl less than 30 mL/min, weight less than 50 kg; or for history of renal transplant. Repeat Magnesium level eight (8) hours after each infusion if most recent magnesium level is less than 1.3 mg/dL. Draw with next day morning labs after replacements for previous magnesium levels between 1.3-1.9 mg/dL. Melatonin tablet 6 mg 6 mg, Oral, DAILY AT BEDTIME NEEDED, Starting on Sun06/06/23 at 2232, Until Discontinued, Insomnia Ondansetron (ZOFRAN) tablet 4 mg(Linked Group 2) 4 mg, Oral, EVERY 6 HOURS NEEDED, Starting on Sun06/06/23 at 223, Until Discontinued, Nausea / Vomiting, 1st line for Nausea/Vomiting Ondansetron 4mg/2ml (ZOFRAN) injection 4 mg(Linked Group 2) 4 mg, Intravenous, EVERY 6 HOURS NEEDED, Starting on Sun06/06/23 at 223, Until Discontinued, Nausea / Vomiting, 1st line for Nausea/Vomiting potassium bicarbonate (EFFER-K) effervescent tablet 25 mEq(Linked Group 3) 25 mEq, Per NG tube, ADMINISTER DIRECTED, Starting on Sun06/06/23 at 2326, Until Discontinued, Other, hypokalemia, If Creatinine less than 2.0 mg/dL: 1. For potassium 3.6 - 4.0, give 50 mEq of potassium chloride via enteral route, recheck the following morning. 2. For potassium less than 3.6, give 75 mEq potassium chloride via enteral route, recheck in 8 hours. 3. If potassium is low please administer magnesium first if indicated. Do not swallow whole. Dissolve completely in 3-4 ounces of water or cold juice before drinking. If administering via J tube, dilute in sterile water, wait for tablet to stop fizzing, swirl the solution and draw into a syringe suitable for attaching to the tube. After administration, flush tube with 15-30 ml water. Potassium chloride (K-DUR) tablet ER 40-60 mEq(Linked Group 3) 40-60 mEq, Oral, ADMINISTER DIRECTED, Starting on Sun06/06/23 at 2326, Until Discontinued, See admin instructions, NOT APPROPRIATE for Dialysis Patients, those with CrCl less than 30 mL/min, weight less than 50 kg; or for history of renal transplant. Check magnesium level and administer magnesium prior to potassium replacement if indicated. For Potassium level less than 3 mmol/L administer 40 mEq every 4 hours x2 occurances. Recheck potassium level eight (8) hours after second dose administered. For Potassium level 3-3.5 mmol/L administer 60 mEq once. Recheck potassium level eight (8) hours after administration. For Potassium level 3.6-4.0 mmol/L administer 40 mEq once. Recheck potassium level with morning labs next day. Sodium chloride 0.9% IV solution 250 mL Intravenous, at 20 mL/hr, NEEDED, Starting on Sun06/06/23 at 2230, Until Discontinued, Carrier Fluid - See Admin. Inst, 250mL 0.9NS to be used as carrier fluid for intermittent small volume or piggyback medication administration as needed. Infusion rate of the carrier fluid should be set at 20 mL/hr unless the rate as the intermittent medication is less than 20 mL/hr. For intermittent medications with a rate less than 20 mL/hr set the carrier fluid at that rate of the intermittent or piggy back medication. Linked Groups Order Group 1: magnesium oxide (MAG-OX) tablet 800 mgJump to med 800 mg, Oral, ADMINISTER DIRECTED, Starting on Sun06/06/23 at 2326, Until Discontinued, See admin instructions, Medicine Electrolyte Replacement Protocol
Administer for magnesium level of 1.6-1.9 mg/dL. NOT APPROPRIATE for Dialysis Patients, those with CrCl less than 30 mL/min, weight less than 50 kg; or for history of renal transplant. Draw magnesium level with next day morning labs.
Or magnesium oxide (MAG-OX) tablet 800 mgJump to med 800 mg, Per NG tube, ADMINISTER DIRECTED, Starting on Sun06/06/23 at 2326, Until Discontinued, See admin instructions, Medicine Electrolyte Replacement Protocol
Administer for magnesium level of 1.6-1.9 mg/dL. NOT APPROPRIATE for Dialysis Patients, those with CrCl less than 30 mL/min, weight less than 50 kg; or for history of renal transplant. Draw magnesium level with next day morning labs.
Or Magnesium sulfate 4 g in sterile water 50 ml premix IVPBJump to med 4 g, Intravenous, Administer over 4 Hours, ADMINISTER DIRECTED, Starting on Sun06/06/23 at 2326, Until Discontinued, Other, Medicine Electrolyte Replacement Protocol
Administer for Magnesium level less than or equal to 1.5 mg/dL. NOT APPROPRIATE for Dialysis Patients, those with CrCl less than 30 mL/min, weight less than 50 kg; or for history of renal transplant. Repeat Magnesium level eight (8) hours after each infusion if most recent magnesium level is less than 1.3 mg/dL. Draw with next day morning labs after replacements for previous magnesium levels between 1.3-1.9 mg/dL.
Group 2: Ondansetron 4mg/2ml (ZOFRAN) injection 4 mgJump to med 4 mg, Intravenous, EVERY 6 HOURS NEEDED, Starting on Sun06/06/23 at 2232, Until Discontinued, Nausea / Vomiting, 1st line for Nausea/Vomiting Or Ondansetron (ZOFRAN) tablet 4 mgJump to med 4 mg, Oral, EVERY 6 HOURS NEEDED, Starting on Sun06/06/23 at 2232, Until Discontinued, Nausea / Vomiting, 1st line for Nausea/Vomiting Group 3: Potassium chloride (K-DUR) tablet ER 40-60 mEqJump to med 40-60 mEq, Oral, ADMINISTER DIRECTED, Starting on Sun06/06/23 at 2326, Until Discontinued, See admin instructions
NOT APPROPRIATE for Dialysis Patients, those with CrCl less than 30 mL/min, weight less than 50 kg; or for history of renal transplant. Check magnesium level and administer magnesium prior to potassium replacement if indicated. For Potassium level less than 3 mmol/L administer 40 mEq every 4 hours x2 occurances. Recheck potassium level eight (8) hours after second dose administered. For Potassium level 3-3.5 mmol/L administer 60 mEq once. Recheck potassium level eight (8) hours after administration. For Potassium level 3.6-4.0 mmol/L administer 40 mEq once. Recheck potassium level with morning labs next day.
Or potassium bicarbonate (EFFER-K) effervescent tablet 25 mEqJump to med 25 mEq, Per NG tube, ADMINISTER DIRECTED, Starting on Sun06/06/23 at 2326, Until Discontinued, Other, hypokalemia
If Creatinine less than 2.0 mg/dL: 1. For potassium 3.6 - 4.0, give 50 mEq of potassium chloride via enteral route, recheck the following morning. 2. For potassium less than 3.6, give 75 mEq potassium chloride via enteral route, recheck in 8 hours. 3. If potassium is low please administer magnesium first if indicated. Do not swallow whole. Dissolve completely in 3-4 ounces of water or cold juice before drinking. If administering via J tube, dilute in sterile water, wait for tablet to stop fizzing, swirl the solution and draw into a syringe suitable for attaching to the tube. After administration, flush tube with 15-30 ml water.
Scheduled Medication Order 06/17/2023 06/18/2023 06/19/2023 ceFAZolin (ANCEF) 3 g in Sodium chloride 0.9%, with overfill 290 mL IV infusion 3 g, Intravenous, at 24.2 mL/hr, Administer over 12 Hours, EVERY 12 HOURS NON-STANDARD, First dose on Lisa 06/07/23 at 2100, Until Discontinued 0558 (Rate/Dose Verify - Provider: Barbara Leigh RN)0822 ($$New Bag$$ - Provider: Samir Sesay RN)2012 ($$New Bag$$ - Provider: Barbara Leigh RN) 0026 (Rate/Dose Verify - Provider: Barbara Leigh RN)0610 (Rate/Dose Verify - Provider: Barbara Leigh RN)0833 ($$New Bag$$ - Provider: Irena Hansen RN)1106 (Rate/Dose Verify - Provider: Irena Hansen RN)1400 (Rate/Dose Verify - Provider: Irena Hansen RN)1800 (Rate/Dose Verify - Provider: Irena Hansen RN)1834 (Rate/Dose Verify - Provider: Asha Prakash RN)1834 (Rate/Dose Verify - Provider: Asha Prakash RN)2041 (Rate/Dose Verify - Provider: Asha Prakash RN)2045 ($$New Bag$$ - Provider: Barbara Leigh RN)2121 (Paused - Provider: Asha Prakash RN)2126 (Restarted - Provider: Asha Prakash RN) 0221 (Rate/Dose Verify - Provider: Barbara Leigh RN)0654 (Rate/Dose Verify - Provider: Barbara Leigh RN)0853 (Rate/Dose Verify - Provider: Asha Prakash RN)0901 (Stopped - Provider: Asha Prakash RN)0902 (Stopped - Provider: Asha Prakash RN)0903 ($$New Bag$$ - Provider: Asha Prakash, RN)1105 (Stopped - Provider: Asha Prakash RN - Comment: Started Home Continuous Ancef) DULoxetine (CYMBALTA) capsule DR 60 mg 60 mg, Oral, DAILY, First dose on Sun06/07/23 at 0900, Until Discontinued, Swallow capsule whole; do not crush or chew. May add contents of capsule to apple juice or applesauce (but NOT chocolate) taking care not to crush the pellets and damage the enteric coating. 0826 (Given - Provider: Samir Sesay RN) 0910 (Given - Provider: Irena Hansen RN) 0906 (Given - Provider: Asha Prakash RN) Gentamicin (GARAMYCIN) 60 mg in Sodium chloride 0.9%, with overfill 111.5 mL (total volume) IVPB (COMPLETED) 60 mg, Intravenous, Administer over 30 Minutes, EVERY 12 HOURS NON-STANDARD, 16 doses, First dose (after last modification) on Sun06/11/23 at 2100, Last dose on Sun06/19/23 at 0900 0826 ($$New Bag$$ - Provider: Samir Sesay RN)0857 (Stopped - Provider: Samir Sesay RN)2015 ($$New Bag$$ - Provider: Barbara Leigh RN)2017 (Rate/Dose Verify - Provider: Irena Hansen RN)2044 (Stopped - Provider: Barbara Leigh RN) 0913 ($$New Bag$$ - Provider: Irena Hansen RN)0958 (Stopped - Provider: Irena Hansen RN)204 ($$New Bag$$ - Provider: Barbara Leigh RN)212 (Stopped - Provider: Barbara Leigh, IVY) 0906 ($$New Bag$$ - Provider: Asha Prakash RN)0933 (Stopped - Provider: Asha Prakash RN) LORazepam (ATIVAN) tablet 0.5 mg 0.5 mg, Oral, EVERY 12 HOURS, First dose (after last modification) on Sun06/15/23 at 1745, Until Discontinued 0556 (Given - Provider: Barbara Leigh RN)1733 (Given - Provider: Samir Sesay RN) 0609 (Given - Provider: Barbara Leigh RN)183 (Given - Provider: Irena Hansen RN) 0557 (Given - Provider: Barbara Leigh RN) Metoprolol (LOPRESSOR) tablet 50 mg 50 mg, Oral, 2 TIMES DAILY, First dose on Sun06/06/23 at 2245, Until Discontinued 0826 (Given - Provider: Samir Sesay RN)173 (Given - Provider: Samir Sesay RN) 09 (Given - Provider: Irena Hansen RN)183 (Given - Provider: Irena Hansen RN) 09 (Given - Provider: Asha Prakash RN) Pantoprazole (PROTONIX) tablet DR 40 mg 40 mg, Oral, DAILY, First dose on Lisa 06/07/23 at 0900, Until Discontinued, Swallow whole; do not crush or chew., Indications: GERD 0827 (Given - Provider: Samir Sesay RN) 09 (Given - Provider: Irena Hansen RN) 09 (Given - Provider: Asha Prakash, IVY) predniSONE (DELTASONE) tablet 15 mg 15 mg, Oral, DAILY, First dose (after last modification) on Sun06/16/23 at 0900, Until Discontinued 08 (Given - Provider: Samir Sesay RN) 09 (Given - Provider: Irena Hansen RN) 09 (Given - Provider: Asha Prakash, IVY) Tamsulosin HCl (FLOMAX) capsule 0.4 mg 0.4 mg, Oral, DAILY, First dose on Lisa 06/07/23 at 0900, Until Discontinued, Slow release product. Do not chew or crush 08 (Given - Provider: Samir Sesay RN) 09 (Given - Provider: Irena Hansen RN) 09 (Given - Provider: Asha Prakash RN) warfarin (COUMADIN) tablet 6.5 mg 6.5 mg, Oral, DAILY EARLY EVENING, First dose (after last modification) on Sun06/17/23 at 1800, Until Discontinued, Swallow tablet whole; do not crush, split or chew. Contact pharmacy if alternate route or dose is needed. 173 (Given - Provider: Samir Sesay RN) 183 (Given - Provider: Irena Hansen RN) Continuous Medication Order 06/17/2023 06/18/2023 06/19/2023 Heparin 25,000 units in dextrose 5% 250 mL premix infusion (CANCELED) INTERMEDIATE/CARDIAC SLIDING SCALE FOR PATIENTS EQUAL TO OR GREATER THAN 65KG: Initiate dose at 12 units/kg/hr. If PTT is less than 47, increase dose by 3 units/kg/hr. If PTT is 47-60, increase dose by 2 units/kg/hr. If PTT is 61-71, increase dose by 1 unit/kg/hr. If PTT is 72-95, no change. If PTT is 96-111, decrease dose by 1 unit/kg/hr. If PTT is 112-126, hold infusion for 60 minutes and decrease dose by 2 units/kg/hr. If PTT greater than 126, hold infusion and check PTT every 2 hours. Once PTT is in goal range or below, restart infusion at 3 units/kg/hr lower than the most recent dose. Note: Round PTT to nearest whole number (e.g. 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 0002 (Paused - Provider: Samir Sesay RN)0006 (Restarted - Provider: Samir Sesay RN)0557 (Rate/Dose Verify - Provider: Barbara Leigh RN)1347 (Rate/Dose Change - Provider: Samir Sesay RN)1347 (Rate/Dose Verify - Provider: Samir Sesay RN)1350 (Rate/Dose Verify - Provider: Samir Sesay RN)1605 ($$New Bag$$ - Provider: Samir Sesay RN)2000 (Rate/Dose Verify - Provider: Barbara Leigh RN) 0025 (Rate/Dose Verify - Provider: Barbara Leigh, IVY)0610 (Rate/Dose Verify - Provider: Barbara Leigh, IVY)0826 (Stopped - Provider: Irena Hansen RN) PRN Medication Order 06/17/2023 06/18/2023 06/19/2023 Acetaminophen (TYLENOL) tablet 650 mg 650 mg, Oral, EVERY 6 HOURS NEEDED, Starting on Sun06/06/23 at 2232, Until Sun06/19/23 at 1513, Mild Pain, Oral temp > 100.4 F, Maximum dose of acetaminophen is 4000 mg from all sources in 24 hours. magnesium oxide (MAG-OX) tablet 800 mg(Linked Group 1) 800 mg, Oral, ADMINISTER DIRECTED, Starting on Sun06/06/23 at 2326, Until Sun06/19/23 at 1513, See admin instructions, Medicine Electrolyte Replacement Protocol, Administer for magnesium level of 1.6-1.9 mg/dL. NOT APPROPRIATE for Dialysis Patients, those with CrCl less than 30 mL/min, weight less than 50 kg; or for history of renal transplant. Draw magnesium level with next day morning labs. magnesium oxide (MAG-OX) tablet 800 mg(Linked Group 1) 800 mg, Per NG tube, ADMINISTER DIRECTED, Starting on Sun06/06/23 at 2326, Until Sun06/19/23 at 1513, See admin instructions, Medicine Electrolyte Replacement Protocol, Administer for magnesium level of 1.6-1.9 mg/dL. NOT APPROPRIATE for Dialysis Patients, those with CrCl less than 30 mL/min, weight less than 50 kg; or for history of renal transplant. Draw magnesium level with next day morning labs. Magnesium sulfate 4 g in sterile water 50 ml premix IVPB(Linked Group 1) 4 g, Intravenous, Administer over 4 Hours, ADMINISTER DIRECTED, Starting on Sun06/06/23 at 2326, Until Sun06/19/23 at 1513, Other, Medicine Electrolyte Replacement Protocol, Administer for Magnesium level less than or equal to 1.5 mg/dL. NOT APPROPRIATE for Dialysis Patients, those with CrCl less than 30 mL/min, weight less than 50 kg; or for history of renal transplant. Repeat Magnesium level eight (8) hours after each infusion if most recent magnesium level is less than 1.3 mg/dL. Draw with next day morning labs after replacements for previous magnesium levels between 1.3-1.9 mg/dL. Melatonin tablet 6 mg 6 mg, Oral, DAILY AT BEDTIME NEEDED, Starting on Sun06/06/23 at 2232, Until Sun06/19/23 at 1513, Insomnia Ondansetron (ZOFRAN) tablet 4 mg(Linked Group 2) 4 mg, Oral, EVERY 6 HOURS NEEDED, Starting on Sun06/06/23 at 2232, Until Sun06/19/23 at 1513, Nausea / Vomiting, 1st line for Nausea/Vomiting Ondansetron 4mg/2ml (ZOFRAN) injection 4 mg(Linked Group 2) 4 mg, Intravenous, EVERY 6 HOURS NEEDED, Starting on Sun06/06/23 at 2232, Until Sun06/19/23 at 1513, Nausea / Vomiting, 1st line for Nausea/Vomiting potassium bicarbonate (EFFER-K) effervescent tablet 25 mEq(Linked Group 3) 25 mEq, Per NG tube, ADMINISTER DIRECTED, Starting on Sun06/06/23 at 2326, Until Sun06/19/23 at 1513, Other, hypokalemia, If Creatinine less than 2.0 mg/dL: 1. For potassium 3.6 - 4.0, give 50 mEq of potassium chloride via enteral route, recheck the following morning. 2. For potassium less than 3.6, give 75 mEq potassium chloride via enteral route, recheck in 8 hours. 3. If potassium is low please administer magnesium first if indicated. Do not swallow whole. Dissolve completely in 3-4 ounces of water or cold juice before drinking. If administering via J tube, dilute in sterile water, wait for tablet to stop fizzing, swirl the solution and draw into a syringe suitable for attaching to the tube. After administration, flush tube with 15-30 ml water. Potassium chloride (K-DUR) tablet ER 40-60 mEq(Linked Group 3) 40-60 mEq, Oral, ADMINISTER DIRECTED, Starting on Sun06/06/23 at 2326, Until Sun06/19/23 at 1513, See admin instructions, NOT APPROPRIATE for Dialysis Patients, those with CrCl less than 30 mL/min, weight less than 50 kg; or for history of renal transplant. Check magnesium level and administer magnesium prior to potassium replacement if indicated. For Potassium level less than 3 mmol/L administer 40 mEq every 4 hours x2 occurances. Recheck potassium level eight (8) hours after second dose administered. For Potassium level 3-3.5 mmol/L administer 60 mEq once. Recheck potassium level eight (8) hours after administration. For Potassium level 3.6-4.0 mmol/L administer 40 mEq once. Recheck potassium level with morning labs next day. Sodium chloride 0.9% IV solution 250 mL Intravenous, at 20 mL/hr, NEEDED, Starting on Sun06/06/23 at 2230, Until Sun06/19/23 at 1513, Carrier Fluid - See Admin. Inst, 250mL 0.9NS to be used as carrier fluid for intermittent small volume or piggyback medication administration as needed. Infusion rate of the carrier fluid should be set at 20 mL/hr unless the rate as the intermittent medication is less than 20 mL/hr. For intermittent medications with a rate less than 20 mL/hr set the carrier fluid at that rate of the intermittent or piggy back medication. Linked Groups Order Group 1: magnesium oxide (MAG-OX) tablet 800 mgJump to med 800 mg, Oral, ADMINISTER DIRECTED, Starting on Sun06/06/23 at 2326, Until Sun06/19/23 at 1513, See admin instructions, Medicine Electrolyte Replacement Protocol
Administer for magnesium level of 1.6-1.9 mg/dL. NOT APPROPRIATE for Dialysis Patients, those with CrCl less than 30 mL/min, weight less than 50 kg; or for history of renal transplant. Draw magnesium level with next day morning labs.
Or magnesium oxide (MAG-OX) tablet 800 mgJump to med 800 mg, Per NG tube, ADMINISTER DIRECTED, Starting on Sun06/06/23 at 2326, Until Sun06/19/23 at 1513, See admin instructions, Medicine Electrolyte Replacement Protocol
Administer for magnesium level of 1.6-1.9 mg/dL. NOT APPROPRIATE for Dialysis Patients, those with CrCl less than 30 mL/min, weight less than 50 kg; or for history of renal transplant. Draw magnesium level with next day morning labs.
Or Magnesium sulfate 4 g in sterile water 50 ml premix IVPBJump to med 4 g, Intravenous, Administer over 4 Hours, ADMINISTER DIRECTED, Starting on Sun06/06/23 at 2326, Until Sun06/19/23 at 1513, Other, Medicine Electrolyte Replacement Protocol
Administer for Magnesium level less than or equal to 1.5 mg/dL. NOT APPROPRIATE for Dialysis Patients, those with CrCl less than 30 mL/min, weight less than 50 kg; or for history of renal transplant. Repeat Magnesium level eight (8) hours after each infusion if most recent magnesium level is less than 1.3 mg/dL. Draw with next day morning labs after replacements for previous magnesium levels between 1.3-1.9 mg/dL.
Group 2: Ondansetron 4mg/2ml (ZOFRAN) injection 4 mgJump to med 4 mg, Intravenous, EVERY 6 HOURS NEEDED, Starting on Sun06/06/23 at 2232, Until Sun06/19/23 at 1513, Nausea / Vomiting, 1st line for Nausea/Vomiting Or Ondansetron (ZOFRAN) tablet 4 mgJump to med 4 mg, Oral, EVERY 6 HOURS NEEDED, Starting on Sun06/06/23 at 2232, Until Sun06/19/23 at 1513, Nausea / Vomiting, 1st line for Nausea/Vomiting Group 3: Potassium chloride (K-DUR) tablet ER 40-60 mEqJump to med 40-60 mEq, Oral, ADMINISTER DIRECTED, Starting on Sun06/06/23 at 2326, Until Sun06/19/23 at 1513, See admin instructions
NOT APPROPRIATE for Dialysis Patients, those with CrCl less than 30 mL/min, weight less than 50 kg; or for history of renal transplant. Check magnesium level and administer magnesium prior to potassium replacement if indicated. For Potassium level less than 3 mmol/L administer 40 mEq every 4 hours x2 occurances. Recheck potassium level eight (8) hours after second dose administered. For Potassium level 3-3.5 mmol/L administer 60 mEq once. Recheck potassium level eight (8) hours after administration. For Potassium level 3.6-4.0 mmol/L administer 40 mEq once. Recheck potassium level with morning labs next day.
Or potassium bicarbonate (EFFER-K) effervescent tablet 25 mEqJump to med 25 mEq, Per NG tube, ADMINISTER DIRECTED, Starting on Sun06/06/23 at 2326, Until Sun06/19/23 at 1513, Other, hypokalemia
If Creatinine less than 2.0 mg/dL: 1. For potassium 3.6 - 4.0, give 50 mEq of potassium chloride via enteral route, recheck the following morning. 2. For potassium less than 3.6, give 75 mEq potassium chloride via enteral route, recheck in 8 hours. 3. If potassium is low please administer magnesium first if indicated. Do not swallow whole. Dissolve completely in 3-4 ounces of water or cold juice before drinking. If administering via J tube, dilute in sterile water, wait for tablet to stop fizzing, swirl the solution and draw into a syringe suitable for attaching to the tube. After administration, flush tube with 15-30 ml water.
Care Teams (unrecognized sec tion and content) Commissions Manager Relationship Specialty Start Date End Date Louie Burns DO [address] [facility] [address] [place] [phone] PCP - General Family Medicine 06/06/23 Nidia Hernandez MD [address] [place], [place] [phone] PCP - Referring 1 Gastroenterology 06/07/23 Michael Maldonado MD [address] [place] [address] Phys[address] [place], [place] [id number] PCP - Referring 2 Cardiovascular Disease 06/14/23 Jeff Kong, [facility] Pharmacist Infectious Disease 06/15/23 08/03/23 Kelvin Soliz MD, PhD [address] [id number] Infectious Disease Infectious Disease 06/15/23 08/03/23 Asha Bundy MD [address] [place] [address] Infectious Disease Infectious Disease 06/15/23 08/03/23 Commissions Manager Relationship Specialty Start Date End Date Louie Burns DO [address] [place] [address] [place] [address] PCP - General Family Medicine 06/06/23 Nidia Hernandez MD [address] [place] [id number] PCP - Referring 1 Gastroenterology 06/07/23 Michael Maldonado MD [address] [place], [place] [phone] PCP - Referring 2 Cardiovascular Disease 06/14/23 Jeff Kong, [facility] Pharmacist Infectious Disease 06/15/23 08/03/23 Kelvin Soliz MD, PhD [address] [place] [id number] Infectious Disease Infectious Disease 06/15/23 08/03/23 Asha Bundy MD [address] [place] [address] Infectious Disease Infectious Disease 06/15/23 08/03/23 Commissions Manager Relationship Specialty Start Date End Date Louie Burns DO [address] [place] [address] [place] [phone] PCP - General Family Medicine 06/06/23 Nidia Hernandez MD [address] [place] [id number] PCP - Referring 1 Gastroenterology 06/07/23 Michael Maldonado MD [address] [place] [address] PCP - Referring 2 Cardiovascular Disease 06/14/23 FOR RECORDS PERTAINING TO PATIENTS WHO ARE OR HAVE BEEN ENROLLED IN A CHEMICAL DEPENDENCY/SUBSTANCEABUSE PROGRAM, SOME INFORMATION MAY BE OMITTED. This clinical summary was aggregated from multiple sources. Caution should be exercised in using it in the provision of clinical care. This summary normalizes information from multiple sources, and as a consequence, information in this document may materially change the coding, format and clinical context of patient data. In addition, data may be omitted in some cases. CLINICAL DECISIONS SHOULD BE BASED ON THE PRIMARY CLINICAL RECORDS. [employer] provides no warranty or guarantee of the accuracy or completeness of information in this document.
--- OUTSIDE RECORDS SUMMARY | 2024-12-16 21:26 | XMS RPT_ITS | CCD ---
Author Organization [facility] CliniSyil Care Team Providers Care Social Insurance Specialist Name Role Phone Kalie RN, Renee Krishnamurthy Unavailable [phone] Roula, IVY, Lori Veloz Unavailable Unavailabl e Kalie RN, Renee Krishnamurthy Unavailable [phone] Kalie RN, Renee Krishnamurthy Unavailable [phone] Kalie RN, Renee Krishnamurthy Unavailable [phone] Eugenie Jasmine Unavailable Unavailable VEE Wylie, Renee Veloz Unavailable [phone] Ghulam TORRES, Jovana Tierney Unavailable Markus Tran MD Unavailable Kalie RN, Renee Krishnamurthy [...] IP CARDIOLOGY Consulting Unavailab le REQUEST, 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 Consulting Unavaila ble PROVIDER, UNKNOWN Attending [...] UNKNOWN Attending Unavailable KULDEEP PAINTING Admitting Unavailable JAILYNMCIHALUIS Referring Unavailable PROVIDER, UNKNOWN Attending Unavailable Louie Burns DO Primary Care Provider Yon TORRES, Nidia Unavailable Michael Maldonado MD Unavailable Alyssa Berger [facility], Jeff Tierney Unavailable Un available Heydi TORRES, PhD, Kelvin Krishnamurthy Unavailable Asha Bundy MD Unavailable [phone] LOUIE BURNS Primary Care Unavailable SELF, SELF [...] Unavailab le Dand, Waylon Consulting Unavailable Urena, Eudardo Consulting Unavailable Ruben, Suze Consulting Unavailable Aljundi, [...] Primary Care Unavailable Jeancarlos Ritter Attending [facility] Roof, Kuldeep H [...] Primary Care Unavailable Grant, Louie Referring Unavailable Grnat, Louie Primary Care Unavailable [place] Attending [...] Translations: [levofloxacin] drug allergy 3 passed out [facility] Work Phone: (4 sources) ALPRAZolam; Translations: [ALPRAZOLAM] Drug Allergy 1 [facility] (1 source) [facility] Allergy 5 [facility] Repository Medications Current Medications Medication Drug Class(es) [...] one po q 24 H DULOXETINE HCL [id number] Jovana Parmar MD ferrous sulfate 325 mg [...] tablet by mouth twice daily METOPROLOL TARTRATE [id number] Markus Tran MD Potassium Chloride (4 sources) [...] MG CR-TABS q 6 hrs prn ACETAMINOPHEN [id number] Keesha José LPN ALPRAZolam 0.5 mg oral tablet (20 sources) Benzodiazepine Start: 11-07-2016 XANAX 0.5 MG T ABS as needed ALPRAZOLAM [id number] Renee Wylie PA-C End: 08-21-2016 ALPRAZOLAM 0.5 MG TABS three times a day prn ALPRAZOLAM [id number] Keesha José LPN amiodarone hydrochloride 200 mg oral tablet (2 sources) Antiarrhythmic Start: 06-07-2023 End: 06-13-2023 AMIOdarone (PACERONE) tablet 200 mg 12 hr amoxicillin 1000 mg / clavulanate 62.5 mg extended release oral tablet (20 sources) Penicillin-class Antibacterial Start: 11-08-2016 take 1 tablet by mouth twice daily AUGMENTIN XR 1000-62.5 MG [id number] One tablet by mouth twice daily AMOXICILLIN-POT CLAVULANATE [id number] Renee Wylie PA-C Start: 11-08-2016 take 1 tablet by grisel th twice daily AUGMENTIN XR 1000-62.5 MG [id number] One tablet by mouth twice daily AMOXICILLIN-POT CLAVULANATE [id number] Renee Wylie PA-C Start: 11-08-2016 take 1 tablet by grisel th twice daily AUGMENTIN XR 1000-62.5 MG [id number] One tablet by mouth twice daily AMOXICILLIN-POT CLAVULANATE [id number] Renee Wylie PA-C Start: 08-07-2016 End: 10-06-2016 take 1 tablet by mouth once AMOXICILLIN-POT CLAVULANAT E 875-125 MG TABS one po q12 AMOXICILLIN-POT CLAVULANATE 55015268941 Jovana Parmar MD aspirin 81 mg delayed release oral tablet (20 sources) Nonsteroidal Anti-inflammatory Drug Start: 09-20-2010 End: 08-20-2013 take 1 tablet by mouth once daily ECOTRIN LOW STRENGTH 81 MG TBEC One tablet by mouth daily ASPIRIN [id number] Markus Tran MD Start: 09-20-2010 End: 08-20-2013 take 1 tablet by mouth once daily ECOTRIN LOW STRENGTH 81 MG TBEC One tablet by mouth daily ASPIRIN [id number] Markus Tran MD benzocaine 140 mg/ml / [...] One tablet by mouth daily CITALOPRAM HYDROBROMIDE [id number] Renee Wylie PA-C ertapenem 1000 mg injection (20 sources) Penem Antibacterial End: 08-07-2016 INVANZ 1 GM SOLR q 24 hrs ERTAPENEM SODIUM [id number] Finesse Stover Sisi MA End: 08-07-2016 INVANZ 1 GM SOLR q 24 hrs 20 18/08/05 ERTAPENEM SODIUM [id number] Finesse S Sisi MA INVANZ 1 GM SOLR q 24 hrs ERTAPENEM SODIUM 55844683130 Keesha José LPN INVANZ 1 GM SOLR q 24 hrs ERTAPENEM SODIUM [id number] Keesha José LPN End: 08-07-2016 INVANZ 1 GM SOLR q 24 hrs 20 18/08/05 ERTAPENEM SODIUM [id number] Finesse Stover Sisi MA Furosemide (4 sources) [...] twice daily as needed for anxiety LORAZEPAM [id number] Louie Burns DO Start: 09-20-2010 take 1 tablet by grisel once daily LORAZEPAM 0.5 MG TABS One tablet by mouth daily LORAZEPAM [id number] Susanne Rios melatonin 3 mg oral tablet [...] One tablet by mouth daily PAROXETINE HCL [id number] Keesha José LPN pravastatin sodium 20 mg oral tablet (20 sources) HMG-CoA Reductase Inhibitor Start: 01-17-2012 End: 02-23-2014 take 1 tablet by mouth at bedtime PRAVASTATIN SODIUM 20 MG TABS One tablet by mouth at bedtime PRAVASTATIN SODIUM [id number] Abhijeet Kee MD 1000 ml sodium chloride [...] X 5 days per wk WARFARIN SODIUM [id number] Markus Tran MD Start: 09-20-2010 COUMADIN 5 MG TABS Take as directed-current dose is 6 mg daily WARFARIN SODIUM [id number] Renee Wylie PA-C Start: 09-20-2010 COUMADIN 1 MG TABS Take as directed: current dose: take one tablet by mouth daily Sat-Thurs. 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, [address] Absolute Neut 3.7 X10 3/uL Normal 2.0-7.7 [facility] Comment on above: Performed By: #### L 100.0100, L300.3900, L503.7505, L500.4050 ####[facility] [address] [place], [address] Basophils/100 WBC (Bld) 1.2 % High 0-1 [facility] Comment on above: Performed By: #### L 100.0100, L300.3900, L503.7505, L500.4050 ####[facility] [address] [place], [address] Eosinophils/100 WBC (Bld) 5.5 % High 0-5 [facility] Comment on above: Performed By: #### L 100.0100, L300.3900, L503.7505, L500.4050 ####[facility] [address] [place], [address] Erythrocyte distribution width (RBC) [Ratio] 14.1 % Normal 11.6-14.6 [facility] Comment on above: Performed By: #### L 100.0100, L300.3900, L503.7505, L500.4050 ####[facility] [address] [place], [address] Hematocrit (Bld) [Volume fraction] 37.3 % Low 40-54 [facility] Comment on above: Performed By: #### L 100.0100, L300.3900, L503.7505, L500.4050 ####[facility] [address] [place], [address] Hemoglobin (Bld) [Mass/Vol] 12.4 g/dL Low 13.0-16.5 [facility] Comment on above: Performed By: #### L 100.0100, L300.3900, L503.7505, L500.4050 ####[facility] [address] [place], [address] IG% 0.200 Normal 0.0-0.9 [facility] Comment on above: Result Comment: IG% - Immature Granulocytes (promyelocytes, myelocytes andmetamyelocytes) > 1% indicates that a LEFT SHIFT is Present. Performed By: #### L 100.0100, L300.3900, L503.7505, L500.4050 ####[facility] [address] [place], [address] Lymphocytes/100 WBC (Bld) 12.8 % Low 19-41 [facility] Comment on above: Performed By: #### L 100.0100, L300.3900, L503.7505, L500.4050 ####[facility] [address] [place], [address] MCH (RBC) [Entitic mass] 32.9 pg High 27.0-32.0 [facility] Comment on above: Performed By: #### L 100.0100, L300.3900, L503.7505, L500.4050 ####[facility] [address] [place], [address] MCHC (RBC) [Mass/Vol] 33.2 g/dL Normal 32-[address] [facility] Comment on above: Performed By: #### L 100.0100, L300.3900, L503.7505, L500.4050 ####[facility] [address] [place], [address] MCV (RBC) [Entitic vol] 98.9 fL High 80-94 [facility] Comment on above: Performed By: #### L 100.0100, L300.3900, L503.7505, L500.4050 ####[facility] [address] [place], [address] Monocytes/100 WBC (Bld) 17.0 % High 0-10 [facility] Comment on above: Performed By: #### L 100.0100, L300.3900, L503.7505, L500.4050 ####[facility] [address] [place], [address] Neutrophils/100 WBC (Bld) 63.3 % Normal 47-70 [facility] Comment on above: Performed By: #### L 100.0100, L300.3900, L503.7505, L500.4050 ####[facility] [address] [place], [address] Nucleated RBC (Bld) [#/Vol] 0 10*3/uL Normal 0-5 [facility] Comment on above: Performed By: #### L 100.0100, L300.3900, L503.7505, L500.4050 ####[facility] [address] [place], [address] Platelet mean volume (Bld) [Entitic vol] 10.5 fL Normal 6.2-12.0 [facility] Comment on above: Performed By: #### L 100.0100, L300.3900, L503.7505, L500.4050 ####[facility] [address] [place], [address] Platelets (Bld) [#/Vol] 197 10*3/uL Normal 150-450 [facility] Comment on above: Performed By: #### L 100.0100, L300.3900, L503.7505, L500.4050 ####[facility] [address] [place], [address] RBC (Bld) [#/Vol] 3.77 10*6/uL Low 4.6-6.2 [facility] Comment on above: Performed By: #### L 100.0100, L300.3900, L503.7505, L500.4050 ####[facility] [address] [place], [address] RDW SD 51.7 fl High 35.1-43.9 [facility] Comment on above: Performed By: #### L 100.0100, L300.3900, L503.7505, L500.4050 ####[facility] [address] [place], [address] WBC (Bld) [#/Vol] 5.8 10*3/uL Normal 4.4-11.0 [facility] Comment on above: Performed By: #### L 100.0100, L300.3900, L503.7505, L500.4050 ####[facility] [address] [place], [address] Cardiology Visit Reporton Cardiology Visit Report Normal [facility] Chest PA and Lateralon 11-10 Chest PA and Lateral Normal [facility] Comprehensive Metabolic Prof ilon 11-10-2024 Albumin [Mass/Vol] 3.9 g/dL Normal 3.4-4.8 [facility] Comment on above: Order Comment: Do al kal with other labs on SundayNovember 10 Performed By: #### L 100.0100, L300.3900, L503.7505, L500.4050 ####[facility] [address] [place], [address] Albumin/Globulin [Mass ratio] 1.0 {ratio} Normal 0.9-2.4 [facility] Comment on above: Order Comment: Do al kal with other labs on SundayNovember 10 Performed By: #### L 100.0100, L300.3900, L503.7505, L500.4050 ####[facility] [address] [place], [address] ALK PHOS 200 U/L High 40-129 [facility] Comment on above: Order Comment: Do al kal with other labs on SundayNovember 10 Performed By: #### L 100.0100, L300.3900, L503.7505, L500.4050 ####[facility] [address] [place], [address] ALT [Catalytic activity/Vol] 26 U/L Normal <=46 [facility] Comment on above: Order Comment: Do al kal with other labs on SundayNovember 10 Performed By: #### L 100.0100, L300.3900, L503.7505, L500.4050 ####[facility] [address] [place], [address] AST [Catalytic activity/Vol] 49 U/L High <=37 [facility] Comment on above: Order Comment: Do al kal with other labs on SundayNovember 10 Performed By: #### L 100.0100, L300.3900, L503.7505, L500.4050 ####[facility] [address] [place], [address] Bilirubin [Mass/Vol] 0.67 mg/dL Normal 0.00-1.30 [facility] Comment on above: Order Comment: Do al kal with other labs on SundayNovember 10 Performed By: #### L 100.0100, L300.3900, L503.7505, L500.4050 ####[facility] [address] [place], [address] BUN/CRE 20.4 RATIO High 10-20 [facility] Comment on above: Order Comment: Do al kal with other labs on SundayNovember 10 Performed By: #### L 100.0100, L300.3900, L503.7505, L500.4050 ####[facility] [address] [place], [address] Calcium [Mass/Vol] 9.2 mg/dL Normal 7.6-11.0 [facility] Comment on above: Order Comment: Do al kal with other labs on SundayNovember 10 Performed By: #### L 100.0100, L300.3900, L503.7505, L500.4050 ####[facility] [address] [place], [address] Chloride [Moles/Vol] 102 mmol/L Normal 98-108 [facility] Comment on above: Order Comment: Do al kal with other labs on SundayNovember 10 Performed By: #### L 100.0100, L300.3900, L503.7505, L500.4050 ####[facility] [address] [place], [address] CO2 [Moles/Vol] 28.4 mmol/L Normal 21.0-32.0 [facility] Comment on above: Order Comment: Do al kal with other labs on SundayNovember 10 Performed By: #### L 100.0100, L300.3900, L503.7505, L500.4050 ####[facility] [address] [place], [address] Creatinine [Mass/Vol] 1.12 mg/dL Normal 0.70-1.[address] [facility] Comment on above: Order Comment: Do al kal with other labs on SundayNovember 10 Performed By: #### L 100.0100, L300.3900, L503.7505, L500.4050 ####[facility] [address] [place], [address] GAP 9 Normal 5-15 [facility] Comment on above: Order Comment: Do al kal with other labs on SundayNovember 10 Performed By: #### L 100.0100, L300.3900, L503.7505, L500.4050 ####[facility] [address] [place], [address] GFR/1.73 sq M.predicted among non-blacks MDRD (S/P/Bld) [Vol rate/Area] 67 mL/min/{1.73_m2} Normal >60 [facility] Comment on above: Order Comment: Do al kal with other labs on SundayNovember 10 Result Comment: mL/m in/1.73m2 CKD-EPI Creatinine Equation (2020) Performed By: #### L 100.0100, L300.3900, L503.7505, L500.4050 ####[facility] [address] [place], [address] Globulin (S) [Mass/Vol] 4.0 g/dL Normal 2.2-4.2 [facility] Comment on above: Order Comment: Do al kal with other labs on SundayNovember 10 Performed By: #### L 100.0100, L300.3900, L503.7505, L500.4050 ####[facility] [address] [place], [address] Glucose [Mass/Vol] 110 mg/dL High 70-99 [facility] Comment on above: Order Comment: Do al kal with other labs on SundayNovember 10 Performed By: #### L 100.0100, L300.3900, L503.7505, L500.4050 ####[facility] [address] [place], [address] Potassium [Moles/Vol] 4.2 mmol/L Normal 3.3-5.[address] [facility] Comment on above: Order Comment: Do al kal with other labs on SundayNovember 10 Performed By: #### L 100.0100, L300.3900, L503.7505, L500.4050 ####[facility] [address] [place], [address] Sodium [Moles/Vol] 139 mmol/L Normal 133-145 [facility] Comment on above: Order Comment: Do al kal with other labs on SundayNovember 10 Performed By: #### L 100.0100, L300.3900, L503.7505, L500.4050 ####[facility] [address] [place], [address] T PROT 7.9 g/dL Normal 5.9-8.4 [facility] Comment on above: Order Comment: Do al kal with other labs on SundayNovember 10 Performed By: #### L 100.0100, L300.3900, L503.7505, L500.4050 ####[facility] [address] [place], [address] Urea nitrogen [Mass/Vol] 23 mg/dL High 4-19 [facility] Comment on above: Order Comment: Do al kal with other labs on SundayNovember 10 Performed By: #### L 100.0100, L300.3900, L503.7505, L500.4050 ####[facility] [address] [place], [address] L503.7505on 11-10-2024 Natriuretic peptide B (Bld) [Mass/Vol] 2020 pg/mL High <=1800 [facility] Comment on above: Result Comment: Hear t Failure Unlikely: < 300 pg/mLHeart Failure Likely< 50 Years: > 450 pg/mL50-75 Years: > 900 pg/mL>75 Years: > 1800 pg/mL Performed By: #### L 100.0100, L300.3900, L503.7505, L500.4050 ####[facility] [address] [place], [address] Prothrombin Time w/INRon INR Coag (PPP) [Relative time] 3.7 {INR} Normal [facility] Comment on above: Order Comment: Comme nts: Do along with other labs on SundayNovember 10 Performed By: #### L 100.0100, L300.3900, L503.7505, L500.4050 ####[facility] [address] [place], [address] PT Coag (PPP) [Time] 37.3 s High 11.7-14.9 [facility] Comment on above: Order Comment: Comme nts: Do along with other labs on SundayNovember 10 Performed By: #### L 100.0100, L300.3900, L503.7505, L500.4050 ####[facility] [address] [place], [place], [id number] Emergency Department Summary on 10-11-2024 Emergency Department Summary Normal [facility] HIP, UNI W/ Pelvis 2-3 Views on 10-11-2024 HIP, UNI W/ Pelvis 2-3 Views Normal [facility] Shoulder min 2 Viewson 10-11 Shoulder min 2 Views Normal [facility] CBC W/Diff, Automatedon - PATH REV Reviewed Normal [facility] Comment on above: Result Comment: SEE REPORT IN PATIENT'S EMR AMENDED REPORT 09/17/24 1045 PATH REV previously reported as: October Performed By: #### L 500.4050, L100.0100, L300.4310, L300.3900, L503.6005, M200.1000 ####[facility] [address] [place], [address] Culture, Blood (WB)on 2024 CUB Blood cultures x2, from two different sites No growth in 5 days. Normal [facility] Comment on above: Performed By: #### L 500.4050, L100.0100, L300.4310, L300.3900, L503.6005, M200.1000 ####[facility] [address] [place], [address] Basic Metabolic Profile (BMP )on 08-27-2024 BUN/CRE 13.2 RATIO Normal 10-20 [facility] Comment on above: Performed By: #### L 100.0100, L500.2500 ####[facility] [address] [place], [address] Calcium [Mass/Vol] 7.3 mg/dL Low 7.6-11.0 [facility] Comment on above: Performed By: #### L 100.0100, L500.2500 ####[facility] [address] [place], [address] Chloride [Moles/Vol] 98 mmol/L Normal 98-108 [facility] Comment on above: Performed By: #### L 100.0100, L500.2500 ####[facility] [address] [place], [address] CO2 [Moles/Vol] 25.0 mmol/L Normal 21.0-32.0 [facility] Comment on above: Performed By: #### L 100.0100, L500.2500 ####[facility] [address] [place], [address] Creatinine [Mass/Vol] 0.99 mg/dL Normal 0.70-1.[address] [facility] Comment on above: Performed By: #### L 100.0100, L500.2500 ####[facility] [address] [place], [address] ECRCL 72.57 ml/min Normal 50-250 [facility] Comment on above: Performed By: #### L 100.0100, L500.2500 ####[facility] [address] [place], [address] GAP 12 Normal 5-15 [facility] Comment on above: Performed By: #### L 100.0100, L500.2500 ####[facility] [address] [place], [address] GFR/1.73 sq M.predicted among non-blacks MDRD (S/P/Bld) [Vol rate/Area] 78 mL/min/{1.73_m2} Normal >60 [facility] Comment on above: Result Comment: mL/m in/1.73m2 CKD-EPI Creatinine Equation (2020) Performed By: #### L 100.0100, L500.2500 ####[facility] [address] [place], [address] Glucose [Mass/Vol] 104 mg/dL High 70-99 [facility] Comment on above: Performed By: #### L 100.0100, L500.2500 ####[facility] [address] [place], [address] Potassium [Moles/Vol] 4.0 mmol/L Normal 3.3-5.[address] [facility] Comment on above: Performed By: #### L 100.0100, L500.2500 ####[facility] [address] [place], [address] Sodium [Moles/Vol] 135 mmol/L Normal 133-145 [facility] Comment on above: Performed By: #### L 100.0100, L500.2500 ####[facility] [address] [place], [address] Urea nitrogen [Mass/Vol] 13 mg/dL Normal 4-19 [facility] Comment on above: Performed By: #### L 100.0100, L500.2500 ####[facility] [address] [place], [address] CBC W/Diff, Automatedon 08-03 Absolute Lymph 0.60 X10 3/uL Low 0.83-4.51 [facility] Comment on above: Performed By: #### L 100.0100, L500.2500 ####[facility] [address] [place], [address] Absolute Neut 3.7 X10 3/uL Normal 2.0-7.7 [facility] Comment on above: Performed By: #### L 100.0100, L500.2500 ####[facility] [address] [place], [address] Basophils/100 WBC (Bld) 1.1 % High 0-1 [facility] Comment on above: Performed By: #### L 100.0100, L500.2500 ####[facility] [address] [place], [address] Eosinophils/100 WBC (Bld) 4.4 % Normal 0-5 [facility] Comment on above: Performed By: #### L 100.0100, L500.2500 ####[facility] [address] [place], [address] Erythrocyte distribution width (RBC) [Ratio] 14.2 % Normal 11.6-14.6 [facility] Comment on above: Performed By: #### L 100.0100, L500.2500 ####[facility] [address] [place], [address] Hematocrit (Bld) [Volume fraction] 39.9 % Low 40-54 [facility] Comment on above: Performed By: #### L 100.0100, L500.2500 ####[facility] [address] [place], [address] Hemoglobin (Bld) [Mass/Vol] 13.4 g/dL Normal 13.0-16.5 [facility] Comment on above: Performed By: #### L 100.0100, L500.2500 ####[facility] [address] [place], [address] IG% 0.500 Normal 0.0-0.9 [facility] Comment on above: Result Comment: IG% - Immature Granulocytes (promyelocytes, myelocytes andmetamyelocytes) > 1% indicates that a LEFT SHIFT is Present. Performed By: #### L 100.0100, L500.2500 ####[facility] [address] [place], [address] Lymphocytes/100 WBC (Bld) 10.6 % Low 19-41 [facility] Comment on above: Performed By: #### L 100.0100, L500.2500 ####[facility] [address] [place], [address] MCH (RBC) [Entitic mass] 31.5 pg Normal 27.0-32.0 [facility] Comment on above: Performed By: #### L 100.0100, L500.2500 ####[facility] [address] [place], [address] MCHC (RBC) [Mass/Vol] 33.6 g/dL Normal 32-[address] [facility] Comment on above: Performed By: #### L 100.0100, L500.2500 ####[facility] [address] [place], [address] MCV (RBC) [Entitic vol] 93.7 fL Normal 80-94 [facility] Comment on above: Performed By: #### L 100.0100, L500.2500 ####[facility] [address] [place], [address] Monocytes/100 WBC (Bld) 19.2 % High 0-10 [facility] Comment on above: Performed By: #### L 100.0100, L500.2500 ####[facility] [address] [place], [address] Neutrophils/100 WBC (Bld) 64.2 % Normal 47-70 [facility] Comment on above: Performed By: #### L 100.0100, L500.2500 ####[facility] [address] [place], [address] Nucleated RBC (Bld) [#/Vol] 0 10*3/uL Normal 0-5 [facility] Comment on above: Performed By: #### L 100.0100, L500.2500 ####[facility] [address] [place], [address] Platelet mean volume (Bld) [Entitic vol] 10.5 fL Normal 6.2-12.0 [facility] Comment on above: Performed By: #### L 100.0100, L500.2500 ####[facility] [address] [place], [address] Platelets (Bld) [#/Vol] 198 10*3/uL Normal 150-450 [facility] Comment on above: Performed By: #### L 100.0100, L500.2500 ####[facility] [address] [place], [address] RBC (Bld) [#/Vol] 4.26 10*6/uL Low 4.6-6.2 [facility] Comment on above: Performed By: #### L 100.0100, L500.2500 ####[facility] [address] [place], [address] RDW SD 48.6 fl High 35.1-43.9 [facility] Comment on above: Performed By: #### L 100.0100, L500.2500 ####[facility] [address] [place], [address] WBC (Bld) [#/Vol] 5.7 10*3/uL Normal 4.4-11.0 [facility] Comment on above: Performed By: #### L 100.0100, L500.2500 ####[facility] [address] [place], [address] Prothrombin Time w/INRon INR Coag (PPP) [Relative time] 2.4 {INR} Normal [facility] Comment on above: Performed By: #### L 300.3900 ####[facility] [address] [place], [address] PT Coag (PPP) [Time] 26.3 s High 11.7-14.9 [facility] Comment on above: Performed By: #### L 300.3900 ####[facility] [address] [place], [address] Basic Metabolic Profile (BMP )on 08-26-2024 BUN/CRE 14.6 RATIO Normal 10-20 [facility] Comment on above: Performed By: #### L 500.2500, L100.0100 ####[facility] [address] [place], [address] Calcium [Mass/Vol] 8.7 mg/dL Normal 7.6-11.0 [facility] Comment on above: Performed By: #### L 500.2500, L100.0100 ####[facility] [address] [place], [address] Chloride [Moles/Vol] 99 mmol/L Normal 98-108 [facility] Comment on above: Performed By: #### L 500.2500, L100.0100 ####[facility] [address] [place], [address] CO2 [Moles/Vol] 27.2 mmol/L Normal 21.0-32.0 [facility] Comment on above: Performed By: #### L 500.2500, L100.0100 ####[facility] [address] [place], [address] Creatinine [Mass/Vol] 0.94 mg/dL Normal 0.70-1.[address] [facility] Comment on above: Performed By: #### L 500.2500, L100.0100 ####[facility] [address] [place], [address] ECRCL 76.43 ml/min Normal 50-250 [facility] Comment on above: Performed By: #### L 500.2500, L100.0100 ####[facility] [address] [place], [address] GAP 9 Normal 5-15 [facility] Comment on above: Performed By: #### L 500.2500, L100.0100 ####[facility] [address] [place], [address] GFR/1.73 sq M.predicted among non-blacks MDRD (S/P/Bld) [Vol rate/Area] 82 mL/min/{1.73_m2} Normal >60 [facility] Comment on above: Result Comment: mL/m in/1.73m2 CKD-EPI Creatinine Equation (2020) Performed By: #### L 500.2500, L100.0100 ####[facility] [address] [place], [address] Glucose [Mass/Vol] 108 mg/dL High 70-99 [facility] Comment on above: Performed By: #### L 500.2500, L100.0100 ####[facility] [address] [place], [address] Potassium [Moles/Vol] 4.1 mmol/L Normal 3.3-5.[address] [facility] Comment on above: Performed By: #### L 500.2500, L100.0100 ####[facility] [address] [place], [address] Sodium [Moles/Vol] 135 mmol/L Normal 133-145 [facility] Comment on above: Performed By: #### L 500.2500, L100.0100 ####[facility] [address] [place], [address] Urea nitrogen [Mass/Vol] 14 mg/dL Normal 4-19 [facility] Comment on above: Performed By: #### L 500.2500, L100.0100 ####[facility] [address] [place], [address] CBC W/Diff, Automatedon 08-03-2024 Absolute Lymph 0.57 X10 3/uL Low 0.83-4.51 [facility] Comment on above: Performed By: #### L 500.2500, L100.0100 ####[facility] [address] [place], [address] Absolute Neut 5.0 X10 3/uL Normal 2.0-7.7 [facility] Comment on above: Performed By: #### L 500.2500, L100.0100 ####[facility] [address] [place], [address] Basophils/100 WBC (Bld) 0.6 % Normal 0-1 [facility] Comment on above: Performed By: #### L 500.2500, L100.0100 ####[facility] [address] [place], [address] Eosinophils/100 WBC (Bld) 2.9 % Normal 0-5 [facility] Comment on above: Performed By: #### L 500.2500, L100.0100 ####[facility] [address] [place], [address] Erythrocyte distribution width (RBC) [Ratio] 14.4 % Normal 11.6-14.6 [facility] Comment on above: Performed By: #### L 500.2500, L100.0100 ####[facility] [address] [place], [address] Hematocrit (Bld) [Volume fraction] 37.1 % Low 40-54 [facility] Comment on above: Performed By: #### L 500.2500, L100.0100 ####[facility] [address] [place], [address] Hemoglobin (Bld) [Mass/Vol] 12.6 g/dL Low 13.0-16.5 [facility] Comment on above: Performed By: #### L 500.2500, L100.0100 ####[facility] [address] [place], [address] IG% 0.400 Normal 0.0-0.9 [facility] Comment on above: Result Comment: IG% - Immature Granulocytes (promyelocytes, myelocytes andmetamyelocytes) > 1% indicates that a LEFT SHIFT is Present. Performed By: #### L 500.2500, L100.0100 ####[facility] [address] [place], [address] Lymphocytes/100 WBC (Bld) 8.1 % Low 19-41 [facility] Comment on above: Performed By: #### L 500.2500, L100.0100 ####[facility] [address] [place], [address] MCH (RBC) [Entitic mass] 31.8 pg Normal 27.0-32.0 [facility] Comment on above: Performed By: #### L 500.2500, L100.0100 ####[facility] [address] [place], [address] MCHC (RBC) [Mass/Vol] 34.0 g/dL Normal 32-[address] [facility] Comment on above: Performed By: #### L 500.2500, L100.0100 ####[facility] [address] [place], [address] MCV (RBC) [Entitic vol] 93.7 fL Normal 80-94 [facility] Comment on above: Performed By: #### L 500.2500, L100.0100 ####[facility] [address] [place], [address] Monocytes/100 WBC (Bld) 17.0 % High 0-10 [facility] Comment on above: Performed By: #### L 500.2500, L100.0100 ####[facility] [address] [place], [address] Neutrophils/100 WBC (Bld) 71.0 % High 47-70 [facility] Comment on above: Performed By: #### L 500.2500, L100.0100 ####[facility] [address] [place], [address] Nucleated RBC (Bld) [#/Vol] 0 10*3/uL Normal 0-5 [facility] Comment on above: Performed By: #### L 500.2500, L100.0100 ####[facility] [address] [place], [address] Platelet mean volume (Bld) [Entitic vol] 10.4 fL Normal 6.2-12.0 [facility] Comment on above: Performed By: #### L 500.2500, L100.0100 ####[facility] [address] [place], [address] Platelets (Bld) [#/Vol] 181 10*3/uL Normal 150-450 [facility] Comment on above: Performed By: #### L 500.2500, L100.0100 ####[facility] [address] [place], [address] RBC (Bld) [#/Vol] 3.96 10*6/uL Low 4.6-6.2 [facility] Comment on above: Performed By: #### L 500.2500, L100.0100 ####[facility] [address] [place], [address] RDW SD 49.5 fl High 35.1-43.9 [facility] Comment on above: Performed By: #### L 500.2500, L100.0100 ####[facility] [address] [place], [address] WBC (Bld) [#/Vol] 7.0 10*3/uL Normal 4.4-11.0 [facility] Comment on above: Performed By: #### L 500.2500, L100.0100 ####[facility] [address] [place], [address] Prothrombin Time w/INRon INR Coag (PPP) [Relative time] 2.3 {INR} Normal [facility] Comment on above: Performed By: #### L 300.3900 ####[facility] [address] [place], [address] PT Coag (PPP) [Time] 25.9 s High 11.7-14.9 [facility] Comment on above: Performed By: #### L 300.3900 ####[facility] [address] [place], [address] Respiratory Cultureon 2024 RESPC Normal [facility] Comment on above: Performed By: #### M 100.2400, M100.2000 ####[facility] [address] [place], [address] Basic Metabolic Profile (BMP )on 08-25-2024 BUN/CRE 15.8 RATIO Normal 10-20 [facility] Comment on above: Performed By: #### L 100.0100, L500.2500 ####[facility] [address] [place], [address] Calcium [Mass/Vol] 8.6 mg/dL Normal 7.6-11.0 [facility] Comment on above: Performed By: #### L 100.0100, L500.2500 ####[facility] [address] [place], [address] Chloride [Moles/Vol] 102 mmol/L Normal 98-108 [facility] Comment on above: Performed By: #### L 100.0100, L500.2500 ####[facility] [address] [place], [address] CO2 [Moles/Vol] 23.6 mmol/L Normal 21.0-32.0 [facility] Comment on above: Performed By: #### L 100.0100, L500.2500 ####[facility] [address] [place], [address] Creatinine [Mass/Vol] 0.87 mg/dL Normal 0.70-1.[address] [facility] Comment on above: Performed By: #### L 100.0100, L500.2500 ####[facility] [address] [place], [address] ECRCL 84.72 ml/min Normal 50-250 [facility] Comment on above: Performed By: #### L 100.0100, L500.2500 ####[facility] [address] [place], [address] GAP 10 Normal 5-15 [facility] Comment on above: Performed By: #### L 100.0100, L500.2500 ####[facility] [address] [place], [address] GFR/1.73 sq M.predicted among non-blacks MDRD (S/P/Bld) [Vol rate/Area] 88 mL/min/{1.73_m2} Normal >60 [facility] Comment on above: Result Comment: mL/m in/1.73m2 CKD-EPI Creatinine Equation (2020) Performed By: #### L 100.0100, L500.2500 ####[facility] [address] [place], [address] Glucose [Mass/Vol] 99 mg/dL Normal 70-99 [facility] Comment on above: Performed By: #### L 100.0100, L500.2500 ####[facility] [address] [place], [address] Potassium [Moles/Vol] 4.3 mmol/L Normal 3.3-5.[address] [facility] Comment on above: Performed By: #### L 100.0100, L500.2500 ####[facility] [address] [place], [address] Sodium [Moles/Vol] 135 mmol/L Normal 133-145 [facility] Comment on above: Performed By: #### L 100.0100, L500.2500 ####[facility] [address] [place], [address] Urea nitrogen [Mass/Vol] 14 mg/dL Normal 4-19 [facility] Comment on above: Performed By: #### L 100.0100, L500.2500 ####[facility] [address] [place], [address] CBC W/Diff, Automatedon - Absolute Lymph 0.59 X10 3/uL Low 0.83-4.51 [facility] Comment on above: Performed By: #### L 100.0100, L500.2500 ####[facility] [address] [place], [address] Absolute Neut 5.8 X10 3/uL Normal 2.0-7.7 [facility] Comment on above: Performed By: #### L 100.0100, L500.2500 ####[facility] [address] [place], [address] Basophils/100 WBC (Bld) 0.6 % Normal 0-1 [facility] Comment on above: Performed By: #### L 100.0100, L500.2500 ####[facility] [address] [place], [address] Eosinophils/100 WBC (Bld) 2.5 % Normal 0-5 [facility] Comment on above: Performed By: #### L 100.0100, L500.2500 ####[facility] [address] [place], [address] Erythrocyte distribution width (RBC) [Ratio] 14.4 % Normal 11.6-14.6 [facility] Comment on above: Performed By: #### L 100.0100, L500.2500 ####[facility] [address] [place], [address] Hematocrit (Bld) [Volume fraction] 36.9 % Low 40-54 [facility] Comment on above: Performed By: #### L 100.0100, L500.2500 ####[facility] [address] [place], [address] Hemoglobin (Bld) [Mass/Vol] 12.3 g/dL Low 13.0-16.5 [facility] Comment on above: Performed By: #### L 100.0100, L500.2500 ####[facility] [address] [place], [address] IG% 0.400 Normal 0.0-0.9 [facility] Comment on above: Result Comment: IG% - Immature Granulocytes (promyelocytes, myelocytes andmetamyelocytes) > 1% indicates that a LEFT SHIFT is Present. Performed By: #### L 100.0100, L500.2500 ####[facility] [address] [place], [address] Lymphocytes/100 WBC (Bld) 7.6 % Low 19-41 [facility] Comment on above: Performed By: #### L 100.0100, L500.2500 ####[facility] [address] [place], [address] MCH (RBC) [Entitic mass] 31.3 pg Normal 27.0-32.0 [facility] Comment on above: Performed By: #### L 100.0100, L500.2500 ####[facility] [address] [place], [address] MCHC (RBC) [Mass/Vol] 33.3 g/dL Normal 32-[address] [facility] Comment on above: Performed By: #### L 100.0100, L500.2500 ####[facility] [address] [place], [address] MCV (RBC) [Entitic vol] 93.9 fL Normal 80-94 [facility] Comment on above: Performed By: #### L 100.0100, L500.2500 ####[facility] [address] [place], [address] Monocytes/100 WBC (Bld) 13.8 % High 0-10 [facility] Comment on above: Performed By: #### L 100.0100, L500.2500 ####[facility] [address] [place], [address] Neutrophils/100 WBC (Bld) 75.1 % High 47-70 [facility] Comment on above: Performed By: #### L 100.0100, L500.2500 ####[facility] [address] [place], [address] Nucleated RBC (Bld) [#/Vol] 0 10*3/uL Normal 0-5 [facility] Comment on above: Performed By: #### L 100.0100, L500.2500 ####[facility] [address] [place], [address] Platelet mean volume (Bld) [Entitic vol] 10.2 fL Normal 6.2-12.0 [facility] Comment on above: Performed By: #### L 100.0100, L500.2500 ####[facility] [address] [place], [address] Platelets (Bld) [#/Vol] 174 10*3/uL Normal 150-450 [facility] Comment on above: Performed By: #### L 100.0100, L500.2500 ####[facility] [address] [place], [address] RBC (Bld) [#/Vol] 3.93 10*6/uL Low 4.6-6.2 [facility] Comment on above: Performed By: #### L 100.0100, L500.2500 ####[facility] [address] [place], [address] RDW SD 50.3 fl High 35.1-43.9 [facility] Comment on above: Performed By: #### L 100.0100, L500.2500 ####[facility] [address] [place], [address] WBC (Bld) [#/Vol] 7.7 10*3/uL Normal 4.4-11.0 [facility] Comment on above: Performed By: #### L 100.0100, L500.2500 ####[facility] [address] [place], [address] Prothrombin Time w/INRon INR Coag (PPP) [Relative time] 2.0 {INR} Normal [facility] Comment on above: Performed By: #### L 300.3900 ####[facility] [address] [place], [address] PT Coag (PPP) [Time] 22.7 s High 11.7-14.9 [facility] Comment on above: Performed By: #### L 300.3900 ####[facility] [address] [place], [address] CBC W/Diff, Automatedon - Absolute Lymph 0.85 X10 3/uL Normal 0.83-4.51 [facility] Comment on above: Performed By: #### L 100.0100, L300.3900, L500.4050 ####[facility] [address] [place], [address] Absolute Neut 4.2 X10 3/uL Normal 2.0-7.7 [facility] Comment on above: Performed By: #### L 100.0100, L300.3900, L500.4050 ####[facility] [address] [place], [address] Basophils/100 WBC (Bld) 1.2 % High 0-1 [facility] Comment on above: Performed By: #### L 100.0100, L300.3900, L500.4050 ####[facility] [address] [place], [address] Eosinophils/100 WBC (Bld) 2.1 % Normal 0-5 [facility] Comment on above: Performed By: #### L 100.0100, L300.3900, L500.4050 ####[facility] [address] [place], [address] Erythrocyte distribution width (RBC) [Ratio] 14.5 % Normal 11.6-14.6 [facility] Comment on above: Performed By: #### L 100.0100, L300.3900, L500.4050 ####[facility] [address] [place], [address] Hematocrit (Bld) [Volume fraction] 37.4 % Low 40-54 [facility] [facility] Comment on above: Performed By: #### L 100.0100, L300.3900, L500.4050 ####[facility] [address] [place], [address] Hemoglobin (Bld) [Mass/Vol] 12.5 g/dL Low 13.0-16.5 [facility] Comment on above: Performed By: #### L 100.0100, L300.3900, L500.4050 ####[facility] [address] [place], [address] IG% 0.400 Normal 0.0-0.9 [facility] Comment on above: Result Comment: IG% - Immature Granulocytes (promyelocytes, myelocytes andmetamyelocytes) > 1% indicates that a LEFT SHIFT is Present. Performed By: #### L 100.0100, L300.3900, L500.4050 ####[facility] [address] [place], [address] Lymphocytes/100 WBC (Bld) 12.7 % Low 19-41 [facility] Comment on above: Performed By: #### L 100.0100, L300.3900, L500.4050 ####[facility] [address] [place], [address] MCH (RBC) [Entitic mass] 31.8 pg Normal 27.0-32.0 [facility] Comment on above: Performed By: #### L 100.0100, L300.3900, L500.4050 ####[facility] [address] [place], [address] MCHC (RBC) [Mass/Vol] 33.4 g/dL Normal 32-[address] [facility] Comment on above: Performed By: #### L 100.0100, L300.3900, L500.4050 ####[facility] [address] [place], [address] MCV (RBC) [Entitic vol] 95.2 fL High 80-94 [facility] Comment on above: Performed By: #### L 100.0100, L300.3900, L500.4050 ####[facility] [address] [place], [address] Monocytes/100 WBC (Bld) 20.8 % High 0-10 [facility] Comment on above: Performed By: #### L 100.0100, L300.3900, L500.4050 ####[facility] [address] [place], [address] Neutrophils/100 WBC (Bld) 62.8 % Normal 47-70 [facility] Comment on above: Performed By: #### L 100.0100, L300.3900, L500.4050 ####[facility] [address] [place], [address] Nucleated RBC (Bld) [#/Vol] 0 10*3/uL Normal 0-5 [facility] Comment on above: Performed By: #### L 100.0100, L300.3900, L500.4050 ####[facility] [address] [place], [address] Platelet mean volume (Bld) [Entitic vol] 10.7 fL Normal 6.2-12.0 [facility] Comment on above: Performed By: #### L 100.0100, L300.3900, L500.4050 ####[facility] [address] [place], [address] Platelets (Bld) [#/Vol] 165 10*3/uL Normal 150-450 [facility] Comment on above: Performed By: #### L 100.0100, L300.3900, L500.4050 ####[facility] [address] [place], [address] RBC (Bld) [#/Vol] 3.93 10*6/uL Low 4.6-6.2 [facility] Comment on above: Performed By: #### L 100.0100, L300.3900, L500.4050 ####[facility] [address] [place], [address] RDW SD 50.9 fl High 35.1-43.9 [facility] Comment on above: Performed By: #### L 100.0100, L300.3900, L500.4050 ####[facility] [address] [place], [address] WBC (Bld) [#/Vol] 6.7 10*3/uL Normal 4.4-11.0 [facility] Comment on above: Performed By: #### L 100.0100, L300.3900, L500.4050 ####[facility] [address] [place], [address] Comprehensive Metabolic Prof ilon 08-24-2024 Albumin [Mass/Vol] 3.4 g/dL Normal 3.4-4.8 [facility] Comment on above: Performed By: #### L 100.0100, L300.3900, L500.4050 ####[facility] [address] [place], [address] Albumin/Globulin [Mass ratio] 0.9 {ratio} Normal 0.9-2.4 [facility] Comment on above: Performed By: #### L 100.0100, L300.3900, L500.4050 ####[facility] [address] [place], [address] ALK PHOS 171 U/L High 40-129 [facility] Comment on above: Performed By: #### L 100.0100, L300.3900, L500.4050 ####[facility] [address] [place], [address] ALT [Catalytic activity/Vol] 25 U/L Normal <=46 [facility] Comment on above: Performed By: #### L 100.0100, L300.3900, L500.4050 ####[facility] [address] [place], [address] AST [Catalytic activity/Vol] 57 U/L High <=37 [facility] Comment on above: Performed By: #### L 100.0100, L300.3900, L500.4050 ####[facility] [address] [place], [address] Bilirubin [Mass/Vol] 1.11 mg/dL Normal 0.00-1.30 [facility] Comment on above: Performed By: #### L 100.0100, L300.3900, L500.4050 ####[facility] [address] [place], [address] BUN/CRE 13.9 RATIO Normal 10-20 [facility] Comment on above: Performed By: #### L 100.0100, L300.3900, L500.4050 ####[facility] [address] [place], [address] Calcium [Mass/Vol] 8.7 mg/dL Normal 7.6-11.0 [facility] Comment on above: Performed By: #### L 100.0100, L300.3900, L500.4050 ####[facility] [address] [place], [address] Chloride [Moles/Vol] 102 mmol/L Normal 98-108 [facility] Comment on above: Performed By: #### L 100.0100, L300.3900, L500.4050 ####[facility] [address] [place], [address] CO2 [Moles/Vol] 22.2 mmol/L Normal 21.0-32.0 [facility] Comment on above: Performed By: #### L 100.0100, L300.3900, L500.4050 ####[facility] [address] [place], [address] Creatinine [Mass/Vol] 1.03 mg/dL Normal 0.70-1.[address] [facility] Comment on above: Performed By: #### L 100.0100, L300.3900, L500.4050 ####[facility] [address] [place], [address] ECRCL 71.82 ml/min Normal 50-250 [facility] Comment on above: Performed By: #### L 100.0100, L300.3900, L500.4050 ####[facility] [address] [place], [address] GAP 11 Normal 5-15 [facility] Comment on above: Performed By: #### L 100.0100, L300.3900, L500.4050 ####[facility] [address] [place], [address] GFR/1.73 sq M.predicted among non-blacks MDRD (S/P/Bld) [Vol rate/Area] 74 mL/min/{1.73_m2} Normal >60 [facility] Comment on above: Result Comment: mL/m in/1.73m2 CKD-EPI Creatinine Equation (2020) Performed By: #### L 100.0100, L300.3900, L500.4050 ####[facility] [address] [place], [address] Globulin (S) [Mass/Vol] 3.8 g/dL Normal 2.2-4.2 [facility] Comment on above: Performed By: #### L 100.0100, L300.3900, L500.4050 ####[facility] [address] [place], [address] Glucose [Mass/Vol] 93 mg/dL Normal 70-99 [facility] Comment on above: Performed By: #### L 100.0100, L300.3900, L500.4050 ####[facility] [address] [place], [address] Potassium [Moles/Vol] 4.3 mmol/L Normal 3.3-5.[address] [facility] Comment on above: Result Comment: Hemo lysis present, Results??could be affected.?? Performed By: #### L 100.0100, L300.3900, L500.4050 ####[facility] [address] [place], [address] Sodium [Moles/Vol] 135 mmol/L Normal 133-145 [facility] Comment on above: Performed By: #### L 100.0100, L300.3900, L500.4050 ####[facility] [address] [place], [address] T PROT 7.2 g/dL Normal 5.9-8.4 [facility] Comment on above: Performed By: #### L 100.0100, L300.3900, L500.4050 ####[facility] [address] [place], [address] Urea nitrogen [Mass/Vol] 14 mg/dL Normal 4-19 [facility] Comment on above: Performed By: #### L 100.0100, L300.3900, L500.4050 ####[facility] [address] [place], [address] Prothrombin Time w/INRon INR Coag (PPP) [Relative time] 1.9 {INR} Normal [facility] Comment on above: Performed By: #### L 100.0100, L300.3900, L500.4050 ####[facility] [address] [place], [address] PT Coag (PPP) [Time] 22.5 s High 11.7-14.9 [facility] Comment on above: Performed By: #### L 100.0100, L300.3900, L500.4050 ####[facility] [address] [place], [address] Urine Cultureon 08-24-2024 URC Culture exhibits no growth. Normal [facility] Comment on above: Performed By: #### M 100.2200, L400.0001 ####[facility] [address] [place], [address] 12 Lead EKGon 08-23-2024 12 Lead EKG Normal [facility] CBC W/Diff, Automatedon - Absolute Lymph 0.79 X10 3/uL Low 0.83-4.51 [facility] Comment on above: Performed By: #### L 500.4050, L100.0100, L300.3900 ####[facility] [address] [place], [address] Absolute Neut 7.8 X10 3/uL High 2.0-7.7 [facility] Comment on above: Performed By: #### L 500.4050, L100.0100, L300.3900 ####[facility] [address] [place], [address] Basophils/100 WBC (Bld) 0.5 % Normal 0-1 [facility] Comment on above: Performed By: #### L 500.4050, L100.0100, L300.3900 ####[facility] [address] [place], [address] Eosinophils/100 WBC (Bld) 0.4 % Normal 0-5 [facility] Comment on above: Performed By: #### L 500.4050, L100.0100, L300.3900 ####[facility] [address] [place], [address] Erythrocyte distribution width (RBC) [Ratio] 14.5 % Normal 11.6-14.6 [facility] Comment on above: Performed By: #### L 500.4050, L100.0100, L300.3900 ####[facility] [address] [place], [address] Hematocrit (Bld) [Volume fraction] 36.6 % Low 40-54 [facility] Comment on above: Performed By: #### L 500.4050, L100.0100, L300.3900 ####[facility] [address] [place], [address] Hemoglobin (Bld) [Mass/Vol] 12.3 g/dL Low 13.0-16.5 [facility] Comment on above: Performed By: #### L 500.4050, L100.0100, L300.3900 ####[facility] [address] [place], [address] IG% 0.300 Normal 0.0-0.9 [facility] Comment on above: Result Comment: IG% - Immature Granulocytes (promyelocytes, myelocytes andmetamyelocytes) > 1% indicates that a LEFT SHIFT is Present. Performed By: #### L 500.4050, L100.0100, L300.3900 ####[facility] [address] [place], [address] Lymphocytes/100 WBC (Bld) 8.0 % Low 19-41 [facility] Comment on above: Performed By: #### L 500.4050, L100.0100, L300.3900 ####[facility] [address] [place], [address] MCH (RBC) [Entitic mass] 31.7 pg Normal 27.0-32.0 [facility] Comment on above: Performed By: #### L 500.4050, L100.0100, L300.3900 ####[facility] [address] [place], [address] MCHC (RBC) [Mass/Vol] 33.6 g/dL Normal 32-[address] [facility] Comment on above: Performed By: #### L 500.4050, L100.0100, L300.3900 ####[facility] [address] [place], [address] MCV (RBC) [Entitic vol] 94.3 fL High 80-94 [facility] Comment on above: Performed By: #### L 500.4050, L100.0100, L300.3900 ####[facility] [address] [place], [address] Monocytes/100 WBC (Bld) 12.5 % High 0-10 [facility] Comment on above: Performed By: #### L 500.4050, L100.0100, L300.3900 ####[facility] [address] [place], [address] Neutrophils/100 WBC (Bld) 78.3 % High 47-70 [facility] Comment on above: Performed By: #### L 500.4050, L100.0100, L300.3900 ####[facility] [address] [place], [address] Nucleated RBC (Bld) [#/Vol] 0 10*3/uL Normal 0-5 [facility] Comment on above: Performed By: #### L 500.4050, L100.0100, L300.3900 ####[facility] [address] [place], [address] Platelet mean volume (Bld) [Entitic vol] 10.1 fL Normal 6.2-12.0 [facility] Comment on above: Performed By: #### L 500.4050, L100.0100, L300.3900 ####[facility] [address] [place], [address] Platelets (Bld) [#/Vol] 178 10*3/uL Normal 150-450 [facility] Comment on above: Performed By: #### L 500.4050, L100.0100, L300.3900 ####[facility] [address] [place], [address] RBC (Bld) [#/Vol] 3.88 10*6/uL Low 4.6-6.2 [facility] Comment on above: Performed By: #### L 500.4050, L100.0100, L300.3900 ####[facility] [address] [place], [address] RDW SD 50.4 fl High 35.1-43.9 [facility] Comment on above: Performed By: #### L 500.4050, L100.0100, L300.3900 ####[facility] [address] [place], [address] WBC (Bld) [#/Vol] 9.9 10*3/uL Normal 4.4-11.0 [facility] Comment on above: Performed By: #### L 500.4050, L100.0100, L300.3900 ####[facility] [address] [place], [address] Chest 1 View (Portable)on Chest 1 View (Portable) Normal [facility] Comprehensive Metabolic Prof ilon 08-23-2024 Albumin [Mass/Vol] 3.3 g/dL Low 3.4-4.8 [facility] Comment on above: Performed By: #### L 500.4050, L100.0100, L300.3900 ####[facility] [address] [place], [address] Albumin/Globulin [Mass ratio] 0.9 {ratio} Normal 0.9-2.4 [facility] Comment on above: Performed By: #### L 500.4050, L100.0100, L300.3900 ####[facility] [address] [place], [address] ALK PHOS 168 U/L High 40-129 [facility] Comment on above: Performed By: #### L 500.4050, L100.0100, L300.3900 ####[facility] [address] [place], [address] ALT [Catalytic activity/Vol] 25 U/L Normal <=46 [facility] Comment on above: Performed By: #### L 500.4050, L100.0100, L300.3900 ####[facility] [address] [place], [address] AST [Catalytic activity/Vol] 53 U/L High <=37 [facility] Comment on above: Performed By: #### L 500.4050, L100.0100, L300.3900 ####[facility] [address] [place], [address] Bilirubin [Mass/Vol] 1.18 mg/dL Normal 0.00-1.30 [facility] Comment on above: Performed By: #### L 500.4050, L100.0100, L300.3900 ####[facility] [address] [place], [address] BUN/CRE 15.2 RATIO Normal 10-20 [facility] Comment on above: Performed By: #### L 500.4050, L100.0100, L300.3900 ####[facility] [address] [place], [address] Calcium [Mass/Vol] 8.5 mg/dL Normal 7.6-11.0 [facility] Comment on above: Performed By: #### L 500.4050, L100.0100, L300.3900 ####[facility] [address] [place], [address] Chloride [Moles/Vol] 103 mmol/L Normal 98-108 [facility] Comment on above: Performed By: #### L 500.4050, L100.0100, L300.3900 ####[facility] [address] [place], [address] CO2 [Moles/Vol] 20.3 mmol/L Low 21.0-32.0 [facility] Comment on above: Performed By: #### L 500.4050, L100.0100, L300.3900 ####[facility] [address] [place], [address] Creatinine [Mass/Vol] 1.28 mg/dL High 0.70-1.[address] [facility] Comment on above: Performed By: #### L 500.4050, L100.0100, L300.3900 ####[facility] [address] [place], [address] ECRCL 57.43 ml/min Normal 50-250 [facility] Comment on above: Performed By: #### L 500.4050, L100.0100, L300.3900 ####[facility] [address] [place], [address] GAP 12 Normal 5-15 [facility] Comment on above: Performed By: #### L 500.4050, L100.0100, L300.3900 ####[facility] [address] [place], [address] GFR/1.73 sq M.predicted among non-blacks MDRD (S/P/Bld) [Vol rate/Area] 57 mL/min/{1.73_m2} Low >60 [facility] Comment on above: Result Comment: mL/m in/1.73m2 CKD-EPI Creatinine Equation (2020) Performed By: #### L 500.4050, L100.0100, L300.3900 ####[facility] [address] [place], [address] Globulin (S) [Mass/Vol] 3.7 g/dL Normal 2.2-4.2 [facility] Comment on above: Performed By: #### L 500.4050, L100.0100, L300.3900 ####[facility] [address] [place], [address] Glucose [Mass/Vol] 134 mg/dL High 70-99 [facility] Comment on above: Performed By: #### L 500.4050, L100.0100, L300.3900 ####[facility] [address] [place], [address] Potassium [Moles/Vol] 4.4 mmol/L Normal 3.3-5.[address] [facility] Comment on above: Performed By: #### L 500.4050, L100.0100, L300.3900 ####[facility] [address] [place], [address] Sodium [Moles/Vol] 135 mmol/L Normal 133-145 [facility] Comment on above: Performed By: #### L 500.4050, L100.0100, L300.3900 ####[facility] [address] [place], [address] T PROT 7.0 g/dL Normal 5.9-8.4 [facility] Comment on above: Performed By: #### L 500.4050, L100.0100, L300.3900 ####[facility] [address] [place], [address] Urea nitrogen [Mass/Vol] 19 mg/dL Normal 4-19 [facility] Comment on above: Performed By: #### L 500.4050, L100.0100, L300.3900 ####[facility] [address] [place], [address] Albumin [Mass/Vol] 4.0 g/dL Normal 3.4-4.8 [facility] Comment on above: Performed By: #### L 500.4050, L100.0100, L300.4310, L300.3900, L503.6005, M200.1000 ####[facility] [address] [place], [address] Albumin/Globulin [Mass ratio] 0.9 {ratio} Normal 0.9-2.4 [facility] Comment on above: Performed By: #### L 500.4050, L100.0100, L300.4310, L300.3900, L503.6005, M200.1000 ####[facility] [address] [place], [address] ALK PHOS 214 U/L High 40-129 [facility] Comment on above: Performed By: #### L 500.4050, L100.0100, L300.4310, L300.3900, L503.6005, M200.1000 ####[facility] [address] [place], [address] ALT [Catalytic activity/Vol] 32 U/L Normal <=46 [facility] Comment on above: Performed By: #### L 500.4050, L100.0100, L300.4310, L300.3900, L503.6005, M200.1000 ####[facility] [address] [place], [address] AST [Catalytic activity/Vol] 60 U/L High <=37 [facility] Comment on above: Performed By: #### L 500.4050, L100.0100, L300.4310, L300.3900, L503.6005, M200.1000 ####[facility] [address] [place], [address] Bilirubin [Mass/Vol] 1.47 mg/dL High 0.00-1.30 [facility] Comment on above: Performed By: #### L 500.4050, L100.0100, L300.4310, L300.3900, L503.6005, M200.1000 ####[facility] [address] [place], [address] BUN/CRE 15.3 RATIO Normal 10-20 [facility] Comment on above: Performed By: #### L 500.4050, L100.0100, L300.4310, L300.3900, L503.6005, M200.1000 ####[facility] [address] [place], [address] Calcium [Mass/Vol] 9.5 mg/dL Normal 7.6-11.0 [facility] Comment on above: Performed By: #### L 500.4050, L100.0100, L300.4310, L300.3900, L503.6005, M200.1000 ####[facility] [address] [place], [address] Chloride [Moles/Vol] 98 mmol/L Normal 98-108 [facility] Comment on above: Performed By: #### L 500.4050, L100.0100, L300.4310, L300.3900, L503.6005, M200.1000 ####[facility] [address] [place], [address] CO2 [Moles/Vol] 25.2 mmol/L Normal 21.0-32.0 [facility] Comment on above: Performed By: #### L 500.4050, L100.0100, L300.4310, L300.3900, L503.6005, M200.1000 ####[facility] [address] [place], [address] Creatinine [Mass/Vol] 1.27 mg/dL High 0.70-1.[address] [facility] Comment on above: Performed By: #### L 500.4050, L100.0100, L300.4310, L300.3900, L503.6005, M200.1000 ####[facility] [address] [place], [address] ECRCL 58.28 ml/min Normal 50-250 [facility] Comment on above: Performed By: #### L 500.4050, L100.0100, L300.4310, L300.3900, L503.6005, M200.1000 ####[facility] [facility] [address] [place], [address] GAP 10 Normal 5-15 [facility] Comment on above: Performed By: #### L 500.4050, L100.0100, L300.4310, L300.3900, L503.6005, M200.1000 ####[facility] [address] [place], [address] GFR/1.73 sq M.predicted among non-blacks MDRD (S/P/Bld) [Vol rate/Area] 57 mL/min/{1.73_m2} Low >60 [facility] Comment on above: Result Comment: mL/m in/1.73m2 CKD-EPI Creatinine Equation (2020) Performed By: #### L 500.4050, L100.0100, L300.4310, L300.3900, L503.6005, M200.1000 ####[facility] [address] [place], [address] Globulin (S) [Mass/Vol] 4.5 g/dL High 2.2-4.2 [facility] Comment on above: Performed By: #### L 500.4050, L100.0100, L300.4310, L300.3900, L503.6005, M200.1000 ####[facility] [address] [place], [address] Glucose [Mass/Vol] 89 mg/dL Normal 70-99 [facility] Comment on above: Performed By: #### L 500.4050, L100.0100, L300.4310, L300.3900, L503.6005, M200.1000 ####[facility] [address] [place], [address] Potassium [Moles/Vol] 5.1 mmol/L Normal 3.3-5.[address] [facility] Comment on above: Performed By: #### L 500.4050, L100.0100, L300.4310, L300.3900, L503.6005, M200.1000 ####[facility] [address] [place], [address] Sodium [Moles/Vol] 133 mmol/L Normal 133-145 [facility] Comment on above: Performed By: #### L 500.4050, L100.0100, L300.4310, L300.3900, L503.6005, M200.1000 ####[facility] [address] [place], [address] T PROT 8.5 g/dL High 5.9-8.4 [facility] Comment on above: Performed By: #### L 500.4050, L100.0100, L300.4310, L300.3900, L503.6005, M200.1000 ####[facility] [address] [place], [address] Urea nitrogen [Mass/Vol] 19 mg/dL Normal 4-19 [facility] Comment on above: Performed By: #### L 500.4050, L100.0100, L300.4310, L300.3900, L503.6005, M200.1000 ####[facility] [address] [place], [address] Emergency Department Summary on 08-23-2024 Emergency Department Summary Normal [facility] Gram Stainon 08-23-2024 GS Acceptable Specimen? Yes (<25 Epithelial cells per/lpf) Gram Stain 2+ White Blood Cells 2+ Gram positive cocci Rare Epithelial cells Normal [facility] Comment on above: Performed By: #### M 100.2400, M100.2000 ####[facility] [address] [place], [address] H AND P Exam - Hospitaliston 08-23-2024 H&P Exam - Hospitalist Normal [facility] L499.0042on 08-23-2024 Trop T High Sen 33 ng/L High <=22 [facility] Comment on above: Performed By: #### L 499.0042 ####[facility] [address] [place], [address] L499.0043on 08-23-2024 Trop T High Sen 40 ng/L High <=22 [facility] Comment on above: Performed By: #### L 499.0043 ####[facility] [address] [place], [address] L501.4021on 08-23-2024 Trop T High Sen 35 ng/L High <=22 [facility] Comment on above: Performed By: #### L 501.4021 ####[facility] [address] [place], [address] L503.7505on 08-23-2024 Natriuretic peptide B (Bld) [Mass/Vol] 3418 pg/mL High <=1800 [facility] Comment on above: Result Comment: Hear t Failure Unlikely: < 300 pg/mLHeart Failure Likely< 50 Years: > 450 pg/mL50-75 Years: > 900 pg/mL>75 Years: > 1800 pg/mL Performed By: #### L 503.7505 ####[facility] [address] [place], [address] Lactic Acidon 08-23-2024 Lactate [Moles/Vol] 1.3 mmol/L Normal 0.0-2.0 [facility] Comment on above: Order Comment: Y Performed By: #### L 500.4050, L100.0100, L300.4310, L300.3900, L503.6005, M200.1000 ####[facility] [address] [place], [address] Legionella Antigen Urineon 0 08-23-2024 LEGU Legionella Ag, Urine Negative (See interpretation below) Normal [facility] Comment on above: Performed By: #### M 300.4600, M300.4500 ####[facility] [address] [place], [address] M100.678on 08-23-2024 M100.678 SARS-CoV-2 (COVID 19 ) Negative INFLUENZA A Negative INFLUENZA B Negative RSV PCR Negative Normal [facility] Comment on above: Performed By: #### M 100.678 ####[facility] [address] [place], [address] Magnesiumon 08-23-2024 Magnesium [Mass/Vol] 1.7 mg/dL Normal 1.5-2.2 [facility] Comment on above: Order Comment: Comme nts: may add to ED labs Performed By: #### L 501.5200 ####[facility] [address] [place], [address] Partial Thromboplast Timeon 08-23-2024 aPTT Coag (Bld) [Time] 40.7 s High 24.1-36.2 [facility] Comment on above: Performed By: #### L 500.4050, L100.0100, L300.4310, L300.3900, L503.6005, M200.1000 ####[facility] [address] [place], [address] Prothrombin Time w/INRon INR Coag (PPP) [Relative time] 2.5 {INR} Normal [facility] Comment on above: Performed By: #### L 500.4050, L100.0100, L300.3900 ####[facility] [address] [place], [address] PT Coag (PPP) [Time] 27.9 s High 11.7-14.9 [facility] Comment on above: Performed By: #### L 500.4050, L100.0100, L300.3900 ####[facility] [address] [place], [address] INR Coag (PPP) [Relative time] 2.6 {INR} Normal [facility] Comment on above: Performed By: #### L 500.4050, L100.0100, L300.4310, L300.3900, L503.6005, M200.1000 ####[facility] [address] [place], [address] PT Coag (PPP) [Time] 28.4 s High 11.7-14.9 [facility] Comment on above: Performed By: #### L 500.4050, L100.0100, L300.4310, L300.3900, L503.6005, M200.1000 ####[facility] [address] [place], [address] RESPIRATORY PANEL MOLECULARo n 08-23-2024 RP PANEL Normal [facility] Comment on above: Performed By: #### M 100.638 ####[facility] [address] [place], [address] Strep pneumoniae Antig(UR,CS F)on 08-23-2024 STPAG Normal [facility] Comment on above: Performed By: #### M 300.4600, M300.4500 ####[facility] [address] [place], [address] Urinalysis, Completeon 08-23 RBC 0 SEEN Normal 0-5 [facility] Comment on above: Order Comment: COLLE CTOR TO SPECIFY Performed By: #### M 100.2200, L400.0001 ####[facility] [address] [place], [address] WBC 0-5 SEEN Normal 0-5 [facility] Comment on above: Order Comment: EB CTOR TO SPECIFY Performed By: #### M 100.2200, L400.0001 ####[facility] [address] [place], [address] BACTERIA 0 SEEN Normal None Seen [facility] Comment on above: Order Comment: EB CTOR TO SPECIFY Performed By: #### M 100.2200, L400.0001 ####[facility] [address] [place], [address] EPI,SQUAMOUS 0 SEEN Normal 0-5 [facility] Comment on above: Order Comment: EB CTOR TO SPECIFY Performed By: #### M 100.2200, L400.0001 ####[facility] [address] [place], [address] Mucus Ql (Urine sed) 0 SEEN Normal [facility] Comment on above: Order Comment: EB CTOR TO SPECIFY Performed By: #### M 100.2200, L400.0001 ####[facility] [address] [place], [address] Respiratory Cultureon 2024 RESPC Mixed normal respiratory kelby. No Haemophilus, Streptococcus pneumoniae, beta-hemolytic Streptococcus or Staphylococcus aureus isolated. Normal [facility] Comment on above: Performed By: #### M 100.1999, M100.2400 ####[facility] [address] [place], [address] Gram Stainon 07-12-2024 GS Acceptable Specimen? Yes (<25 Epithelial cells per/lpf) Gram Stain 3+ White Blood Cells 2+ Gram positive cocci Rare Epithelial cells Normal [facility] Comment on above: Performed By: #### M 100.1999, M100.2400 ####[facility] [address] [place], [address] Chest PA and Lateralon 07-11 Chest PA and Lateral Normal [facility] Emergency Department Summary on 05-09-2024 Emergency Department Summary Normal [facility] Prothrombin Time w/INRon INR Coag (PPP) [Relative time] 2.7 {INR} Normal [facility] Comment on above: Performed By: #### L 300.3900 ####[facility] [address] [place], [address] PT Coag (PPP) [Time] 28.7 s High 11.7-14.9 [facility] Comment on above: Performed By: #### L 300.3900 ####[facility] [address] [place], [address] Prothrombin Time w/INRon INR Coag (PPP) [Relative time] 2.9 {INR} Normal [facility] Comment on above: Performed By: #### L 300.3900 ####[facility] [address] [place], [address] PT Coag (PPP) [Time] 30.0 s High 11.7-14.9 [facility] Comment on above: Performed By: #### L 300.3900 ####[facility] [address] [place], [address] Basic Metabolic Profile (BMP )on 02-13-2024 BUN/CRE 18.2 RATIO Normal - [facility] Comment on above: Performed By: #### L 100.0500, L500.2500 ####[facility] [address] [place], [address] CA,Total 8.8 mg/dL Normal 8.5-10.1 [facility] Comment on above: Performed By: #### L 100.0500, L500.2500 ####[facility] [address] [place], [address] Chloride [Moles/Vol] 106 mmol/L Normal 98-107 [facility] Comment on above: Performed By: #### L 100.0500, L500.2500 ####[facility] [address] [place], [address] CO2 [Moles/Vol] 28.0 mmol/L Normal 21.0-32.0 [facility] Comment on above: Performed By: #### L 100.0500, L500.2500 ####[facility] [address] [place], [address] Creatinine [Mass/Vol] 0.99 mg/dL Normal 0.70-1.[address] [facility] Comment on above: Result Comment: The validity of the calculated GFR GFRAA in patients over70 years has not been determined. Clinical correlation isessential. Performed By: #### L 100.0500, L500.2500 ####[facility] [address] [place], [address] EST GFR - AA 94 mL/min Normal >60 [facility] Comment on above: Result Comment: Afri can Trinidadian GFR Calc Performed By: #### L 100.0500, L500.2500 ####[facility] [address] [place], [address] GAP 2 Low 5-15 [facility] Comment on above: Performed By: #### L 100.0500, L500.2500 ####[facility] [address] [place], [address] GFR/1.73 sq M.predicted among non-blacks MDRD (S/P/Bld) [Vol rate/Area] 78 mL/min/{1.73_m2} Normal >60 [facility] Comment on above: Result Comment: Non- GFR Calc Performed By: #### L 100.0500, L500.2500 ####[facility] [address] [place], [address] Glucose [Mass/Vol] 108 mg/dL High 74-106 [facility] Comment on above: Result Comment: Fast ing Glucose result from 100 to 125 mg/dLsuggests IMPAIRED HOMEOSTASIS per A.D.A. criteria. Performed By: #### L 100.0500, L500.2500 ####[facility] [address] [place], [address] Potassium [Moles/Vol] 4.4 mmol/L Normal 3.5-5.[address] [facility] Comment on above: Performed By: #### L 100.0500, L500.2500 ####[facility] [address] [place], [address] Sodium [Moles/Vol] 136 mmol/L Normal 136-145 [facility] Comment on above: Performed By: #### L 100.0500, L500.2500 ####[facility] [address] [place], [address] Urea nitrogen [Mass/Vol] 18 mg/dL Normal 7-18 [facility] Comment on above: Performed By: #### L 100.0500, L500.2500 ####[facility] [address] [place], [address] CBC-Complete Blood Cnt No Di ffon 02-13-2024 Erythrocyte distribution width (RBC) [Ratio] 14.9 % High 11.6-14.6 [facility] Comment on above: Performed By: #### L 100.0500, L500.2500 ####[facility] [address] [place], [address] Hematocrit (Bld) [Volume fraction] 38.9 % Low 40-54 [facility] Comment on above: Performed By: #### L 100.0500, L500.2500 ####[facility] [address] [place], [address] Hemoglobin (Bld) [Mass/Vol] 12.2 g/dL Low 13.0-16.5 [facility] Comment on above: Performed By: #### L 100.0500, L500.2500 ####[facility] [address] [place], [address] MCH (RBC) [Entitic mass] 30.7 pg Normal 27.0-32.0 [facility] Comment on above: Performed By: #### L 100.0500, L500.2500 ####[facility] [address] [place], [address] MCHC (RBC) [Mass/Vol] 31.4 g/dL Low 32-[address] [facility] Comment on above: Performed By: #### L 100.0500, L500.2500 ####[facility] [address] [place], [address] MCV (RBC) [Entitic vol] 98.0 fL High 80-94 [facility] Comment on above: Performed By: #### L 100.0500, L500.2500 ####[facility] [address] [place], [address] Platelet mean volume (Bld) [Entitic vol] 11.3 fL Normal 6.2-12.0 [facility] Comment on above: Performed By: #### L 100.0500, L500.2500 ####[facility] [address] [place], [address] Platelets (Bld) [#/Vol] 206 10*3/uL Normal 150-450 [facility] Comment on above: Performed By: #### L 100.0500, L500.2500 ####[facility] [address] [place], [address] RBC (Bld) [#/Vol] 3.97 10*6/uL Low 4.6-6.2 [facility] Comment on above: Performed By: #### L 100.0500, L500.2500 ####[facility] [address] [place], [address] RDW SD 54.0 fl High 35.1-43.9 [facility] Comment on above: Performed By: #### L 100.0500, L500.2500 ####[facility] [address] [place], [address] WBC (Bld) [#/Vol] 6.3 10*3/uL Normal 4.4-11.0 [facility] Comment on above: Performed By: #### L 100.0500, L500.2500 ####[facility] [address] [place], [address] Basic Metabolic Profile (BMP )on 02-06-2024 BUN/CRE 13.1 RATIO Normal 10-20 [facility] Comment on above: Performed By: #### L 500.2500, L100.0500 ####[facility] [address] [place], [address] CA,Total 8.8 mg/dL Normal 8.5-10.1 [facility] Comment on above: Performed By: #### L 500.2500, L100.0500 ####[facility] [address] [place], [address] Chloride [Moles/Vol] 107 mmol/L Normal 98-107 [facility] Comment on above: Performed By: #### L 500.2500, L100.0500 ####[facility] [address] [place], [address] CO2 [Moles/Vol] 27.0 mmol/L Normal 21.0-32.0 [facility] Comment on above: Performed By: #### L 500.2500, L100.0500 ####[facility] [address] [place], [address] Creatinine [Mass/Vol] 1.00 mg/dL Normal 0.70-1.[address] [facility] Comment on above: Result Comment: The validity of the calculated GFR GFRAA in patients over70 years has not been determined. Clinical correlation isessential. Performed By: #### L 500.2500, L100.0500 ####[facility] [address] [place], [address] EST GFR - AA 93 mL/min Normal >60 [facility] Comment on above: Result Comment: Afri can Trinidadian GFR Calc Performed By: #### L 500.2500, L100.0500 ####[facility] [address] [place], [address] GAP 3 Low 5-15 [facility] Comment on above: Performed By: #### L 500.2500, L100.0500 ####[facility] [address] [place], [address] GFR/1.73 sq M.predicted among non-blacks MDRD (S/P/Bld) [Vol rate/Area] 77 mL/min/{1.73_m2} Normal >60 [facility] Comment on above: Result Comment: Non- GFR Calc Performed By: #### L 500.2500, L100.0500 ####[facility] [address] [place], [address] Glucose [Mass/Vol] 96 mg/dL Normal 74-106 [facility] Comment on above: Performed By: #### L 500.2500, L100.0500 ####[facility] [address] [place], [address] Potassium [Moles/Vol] 4.2 mmol/L Normal 3.5-5.[address] [facility] Comment on above: Performed By: #### L 500.2500, L100.0500 ####[facility] [address] [place], [address] Sodium [Moles/Vol] 137 mmol/L Normal 136-145 [facility] Comment on above: Performed By: #### L 500.2500, L100.0500 ####[facility] [address] [place], [address] Urea nitrogen [Mass/Vol] 13 mg/dL Normal 7-18 [facility] Comment on above: Performed By: #### L 500.2500, L100.0500 ####[facility] [address] [place], [address] CBC-Complete Blood Cnt No Di ffon 02-06-2024 Erythrocyte distribution width (RBC) [Ratio] 14.8 % High 11.6-14.6 [facility] Comment on above: Performed By: #### L 500.2500, L100.0500 ####[facility] [address] [place], [address] Hematocrit (Bld) [Volume fraction] 38.5 % Low 40-54 [facility] Comment on above: Performed By: #### L 500.2500, L100.0500 ####[facility] [address] [place], [address] Hemoglobin (Bld) [Mass/Vol] 12.3 g/dL Low 13.0-16.5 [facility] Comment on above: Performed By: #### L 500.2500, L100.0500 ####[facility] [address] [place], [address] MCH (RBC) [Entitic mass] 30.7 pg Normal 27.0-32.0 [facility] Comment on above: Performed By: #### L 500.2500, L100.0500 ####[facility] [address] [place], [address] MCHC (RBC) [Mass/Vol] 31.9 g/dL Low 32-[address] [facility] Comment on above: Performed By: #### L 500.2500, L100.0500 ####[facility] [address] [place], [address] MCV (RBC) [Entitic vol] 96.0 fL High 80-94 [facility] Comment on above: Performed By: #### L 500.2500, L100.0500 ####[facility] [address] [place], [address] Platelet mean volume (Bld) [Entitic vol] 11.2 fL Normal 6.2-12.0 [facility] Comment on above: Performed By: #### L 500.2500, L100.0500 ####[facility] [address] [place], [address] Platelets (Bld) [#/Vol] 209 10*3/uL Normal 150-450 [facility] Comment on above: Performed By: #### L 500.2500, L100.0500 ####[facility] [address] [place], [address] RBC (Bld) [#/Vol] 4.01 10*6/uL Low 4.6-6.2 [facility] Comment on above: Performed By: #### L 500.2500, L100.0500 ####[facility] [address] [place], [address] RDW SD 52.0 fl High 35.1-43.9 [facility] Comment on above: Performed By: #### L 500.2500, L100.0500 ####[facility] [address] [place], [address] WBC (Bld) [#/Vol] 6.9 10*3/uL Normal 4.4-11.0 [facility] Comment on above: Performed By: #### L 500.2500, L100.0500 ####[facility] [address] [place], [address] Culture, Anaerobic Any Sourc cari 02-02-2024 CUAN No anaerobic bacteri a isolated. Normal [facility] Comment on above: Performed By: #### M 100.2000, L200.0200, M100.4001, M100.2900 ####[facility] [address] [place], [address] Prothrombin Time w/INRon INR Normal [facility] Comment on above: Result Comment: Canc elled via OM: Order cancelled - Patient discharged Performed By: #### L 300.3900 ####[facility] [address] [place], [address] PROTIME Normal 11.7-14.9 [facility] Comment on above: Result Comment: Canc elled via OM: Order cancelled - Patient discharged Performed By: #### L 300.3900 ####[facility] [address] [place], [address] Prothrombin Time w/INRon INR Normal [facility] Comment on above: Result Comment: Canc elled via OM: Order cancelled - Patient discharged Performed By: #### L 300.3900 ####[facility] [address] [place], [address] PROTIME Normal 11.7-14.9 [facility] Comment on above: Result Comment: Canc elled via OM: Order cancelled - Patient discharged Performed By: #### L 300.3900 ####[facility] [address] [place], [address] Discharge Instructionon 01-03 Discharge Instruction Normal [facility] Partial Thromboplast Timeon 01-30-2024 aPTT Coag (Bld) [Time] 72.1 s High 24.1-36.2 [facility] Comment on above: Performed By: #### L 300.4310 ####[facility] [address] [place], [address] aPTT Coag (Bld) [Time] 61.8 s High 24.1-36.2 [facility] Comment on above: Performed By: #### L 300.4310, L300.3900 ####[facility] [address] [place], [address] Prothrombin Time w/INRon INR Coag (PPP) [Relative time] 2.1 {INR} Normal [facility] Comment on above: Performed By: #### L 300.3900 ####[facility] [address] [place], [address] PT Coag (PPP) [Time] 23.7 s High 11.7-14.9 [facility] Comment on above: Performed By: #### L 300.3900 ####[facility] [address] [place], [address] INR Coag (PPP) [Relative time] 1.8 {INR} Normal [facility] Comment on above: Performed By: #### L 300.4310, L300.3900 ####[facility] [address] [place], [address] PT Coag (PPP) [Time] 20.6 s High 11.7-14.9 [facility] Comment on above: Performed By: #### L 300.4310, L300.3900 ####[facility] [address] [place], [address] Body Fluid Cell Count+Diffon 01-29-2024 PATH COMM/BF Reviewed Normal [facility] Comment on above: Order Comment: The r eference range and other method performancespecifications have not been established for this bodyfluid. The test must be integrated into the clinicalcontext for interpretation. Result Comment: Nega tive for malignant cells.PLEASE ALSO REFER TO CYTOLOGY REPORT [id number] Jimenez M.D. 01/29/24 AMENDED REPORT 01/29/24 1353 PATH COMM/BF previously reported as: May follow Performed By: #### M 100.1999, L200.0200, M100.4001, M100.2900 ####[facility] [address] [place], [address] Body Fluid Culton 01-29-2024 BFC Culture exhibits no growth. Normal [facility] Comment on above: Performed By: #### M 100.1999, L200.0200, M100.4001, M100.2900 ####[facility] [address] [place], [address] CBC W/Diff, Automatedon 01-03 Absolute Lymph 0.86 X10 3/uL Normal 0.83-4.51 [facility] Comment on above: Performed By: #### L 100.0100, L500.4050 ####[facility] [address] [place], [address] Absolute Neut 6.2 X10 3/uL Normal 2.0-7.7 [facility] Comment on above: Performed By: #### L 100.0100, L500.4050 ####[facility] [address] [place], [address] Basophils/100 WBC (Bld) 0.9 % Normal 0-1 [facility] Comment on above: Performed By: #### L 100.0100, L500.4050 ####[facility] [address] [place], [address] Eosinophils/100 WBC (Bld) 4.1 % Normal 0-5 [facility] Comment on above: Performed By: #### L 100.0100, L500.4050 ####[facility] [address] [place], [address] Erythrocyte distribution width (RBC) [Ratio] 14.6 % Normal 11.6-14.6 [facility] Comment on above: Performed By: #### L 100.0100, L500.4050 ####[facility] [address] [place], [address] Hematocrit (Bld) [Volume fraction] 37.0 % Low 40-54 [facility] Comment on above: Performed By: #### L 100.0100, L500.4050 ####[facility] [address] [place], [address] Hemoglobin (Bld) [Mass/Vol] 12.0 g/dL Low 13.0-16.5 [facility] Comment on above: Performed By: #### L 100.0100, L500.4050 ####[facility] [address] [place], [address] IG% 1.200 High 0.0-0.9 [facility] Comment on above: Result Comment: IG% - Immature Granulocytes (promyelocytes, myelocytes andmetamyelocytes) > 1% indicates that a LEFT SHIFT is Present. Performed By: #### L 100.0100, L500.4050 ####[facility] [address] [place], [address] Lymphocytes/100 WBC (Bld) 9.7 % Low 19-41 [facility] Comment on above: Performed By: #### L 100.0100, L500.4050 ####[facility] [address] [place], [address] MCH (RBC) [Entitic mass] 30.0 pg Normal 27.0-32.0 [facility] Comment on above: Performed By: #### L 100.0100, L500.4050 ####[facility] [address] [place], [address] MCHC (RBC) [Mass/Vol] 32.4 g/dL Normal 32-[address] [facility] Comment on above: Performed By: #### L 100.0100, L500.4050 ####[facility] [address] [place], [address] MCV (RBC) [Entitic vol] 92.5 fL Normal 80-94 [facility] Comment on above: Performed By: #### L 100.0100, L500.4050 ####[facility] [address] [place], [address] Monocytes/100 WBC (Bld) 13.6 % High 0-10 [facility] Comment on above: Performed By: #### L 100.0100, L500.4050 ####[facility] [address] [place], [address] Neutrophils/100 WBC (Bld) 70.5 % High 47-70 [facility] Comment on above: Performed By: #### L 100.0100, L500.4050 ####[facility] [address] [place], [address] Nucleated RBC (Bld) [#/Vol] 0 10*3/uL Normal 0-5 [facility] Comment on above: Performed By: #### L 100.0100, L500.4050 ####[facility] [address] [place], [address] Platelet mean volume (Bld) [Entitic vol] 10.5 fL Normal 6.2-12.0 [facility] Comment on above: Performed By: #### L 100.0100, L500.4050 ####[facility] [address] [place], [address] Platelets (Bld) [#/Vol] 193 10*3/uL Normal 150-450 [facility] Comment on above: Performed By: #### L 100.0100, L500.4050 ####[facility] [address] [place], [address] RBC (Bld) [#/Vol] 4.00 10*6/uL Low 4.6-6.2 [facility] Comment on above: Performed By: #### L 100.0100, L500.4050 ####[facility] [address] [place], [address] RDW SD 49.2 fl High 35.1-43.9 [facility] Comment on above: Performed By: #### L 100.0100, L500.4050 ####[facility] [address] [place], [address] WBC (Bld) [#/Vol] 8.9 10*3/uL Normal 4.4-11.0 [facility] Comment on above: Performed By: #### L 100.0100, L500.4050 ####[facility] [address] [place], [address] Comprehensive Metabolic [facility] 01-29-2024 Albumin [Mass/Vol] 2.9 g/dL Low 3.2-5.0 [facility] Comment on above: Performed By: #### L 100.0100, L500.4050 ####[facility] [address] [place], [address] Albumin/Globulin [Mass ratio] 0.7 {ratio} Low 0.9-2.4 [facility] Comment on above: Performed By: #### L 100.0100, L500.4050 ####[facility] [address] [place], [address] ALK P 170 U/L High 45-117 [facility] Comment on above: Performed By: #### L 100.0100, L500.4050 ####[facility] [address] [place], [address] ALT [Catalytic activity/Vol] 22 U/L Normal 16-61 [facility] Comment on above: Performed By: #### L 100.0100, L500.4050 ####[facility] [address] [place], [address] AST [Catalytic activity/Vol] 44 U/L High 15-37 [facility] Comment on above: Performed By: #### L 100.0100, L500.4050 ####[facility] [address] [place], [address] Bilirubin [Mass/Vol] 0.90 mg/dL Normal 0.20-1.00 [facility] Comment on above: Result Comment: For patients on eltrombopag therapy, use of Dimension Quinlan TBIL is not recommended. Performed By: #### L 100.0100, L500.4050 ####[facility] [address] [place], [address] BUN/CRE 10.2 RATIO Normal 10-20 [facility] Comment on above: Performed By: #### L 100.0100, L500.4050 ####[facility] [address] [place], [address] CA,Total 9.1 mg/dL Normal 8.5-10.1 [facility] Comment on above: Performed By: #### L 100.0100, L500.4050 ####[facility] [address] [place], [address] Chloride [Moles/Vol] 106 mmol/L Normal 98-107 [facility] Comment on above: Performed By: #### L 100.0100, L500.4050 ####[facility] [address] [place], [address] CO2 [Moles/Vol] 26.0 mmol/L Normal 21.0-32.0 [facility] Comment on above: Performed By: #### L 100.0100, L500.4050 ####[facility] [address] [place], [address] Creatinine [Mass/Vol] 0.88 mg/dL Normal 0.70-1.[address] [facility] Comment on above: Result Comment: The validity of the calculated GFR GFRAA in patients over70 years has not been determined. Clinical correlation isessential. Performed By: #### L 100.0100, L500.4050 ####[facility] [address] [place], [address] ECRCL 86.27 ml/min Normal [facility] Comment on above: Performed By: #### L 100.0100, L500.4050 ####[facility] [address] [place], [address] EST GFR - AA 107 mL/min Normal >60 [facility] Comment on above: Result Comment: Afri can Trinidadian GFR Calc Performed By: #### L 100.0100, L500.4050 ####[facility] [address] [place], [address] GAP 7 Normal 5-15 [facility] Comment on above: Performed By: #### L 100.0100, L500.4050 ####[facility] [address] [place], [address] GFR/1.73 sq M.predicted among non-blacks MDRD (S/P/Bld) [Vol rate/Area] 88 mL/min/{1.73_m2} Normal >60 [facility] Comment on above: Result Comment: Non- GFR Calc Performed By: #### L 100.0100, L500.4050 ####[facility] [address] [place], [address] Globulin (S) [Mass/Vol] 4.1 g/dL Normal 2.2-4.2 [facility] Comment on above: Performed By: #### L 100.0100, L500.4050 ####[facility] [address] [place], [address] Glucose [Mass/Vol] 102 mg/dL Normal 74-106 [facility] Comment on above: Result Comment: Fast ing Glucose result from 100 to 125 mg/dLsuggests IMPAIRED HOMEOSTASIS per A.D.A. criteria. Performed By: #### L 100.0100, L500.4050 ####[facility] [address] [place], [address] Potassium [Moles/Vol] 4.1 mmol/L Normal 3.5-5.[address] [facility] Comment on above: Performed By: #### L 100.0100, L500.4050 ####[facility] [address] [place], [address] Sodium [Moles/Vol] 139 mmol/L Normal 136-145 [facility] Comment on above: Performed By: #### L 100.0100, L500.4050 ####[facility] [address] [place], [address] T PROT 7.0 g/dL Normal 6.4-8.2 [facility] Comment on above: Performed By: #### L 100.0100, L500.4050 ####[facility] [address] [place], [address] Urea nitrogen [Mass/Vol] 9 mg/dL Normal 7-18 [facility] Comment on above: Performed By: #### L 100.0100, L500.4050 ####[facility] [address] [place], [address] Partial Thromboplast Timeon 01-29-2024 aPTT Coag (Bld) [Time] 63.8 s High 24.1-36.2 [facility] Comment on above: Performed By: #### L 300.4310 ####[facility] [address] [place], [address] aPTT Coag (Bld) [Time] 55.6 s High 24.1-36.2 [facility] Comment on above: Performed By: #### L 300.4310 ####[facility] [address] [place], [address] aPTT Coag (Bld) [Time] 114.6 s Invalid Interpretation Code 24.1-36.2 [facility] Comment on above: Result Comment: CRIT ICAL VALUE VERIFIED. CALLED TO URVEUMBSUWH03/27/24 043 Mason Reyes.RESULTS READ BACK BY SAME. Performed By: #### L 300.4310 ####[facility] [address] [place], [address] Prothrombin Time w/INRon INR Coag (PPP) [Relative time] 1.4 {INR} Normal [facility] Comment on above: Performed By: #### L 300.3900 ####[facility] [address] [place], [address] PT Coag (PPP) [Time] 17.1 s High 11.7-14.9 [facility] Comment on above: Performed By: #### L 300.3900 ####[facility] [address] [place], [address] CBC W/Diff, Automatedon 08- Absolute Lymph 0.77 X10 3/uL Low 0.83-4.51 [facility] Comment on above: Performed By: #### L 100.0100, L500.4050 ####[facility] [address] [place], [address] Absolute Neut 5.7 X10 3/uL Normal 2.0-7.7 [facility] Comment on above: Performed By: #### L 100.0100, L500.4050 ####[facility] [address] [place], [address] Basophils/100 WBC (Bld) 1.1 % High 0-1 [facility] Comment on above: Performed By: #### L 100.0100, L500.4050 ####[facility] [address] [place], [address] Eosinophils/100 WBC (Bld) 4.4 % Normal 0-5 [facility] Comment on above: Performed By: #### L 100.0100, L500.4050 ####[facility] [address] [place], [address] Erythrocyte distribution width (RBC) [Ratio] 14.5 % Normal 11.6-14.6 [facility] Comment on above: Performed By: #### L 100.0100, L500.4050 ####[facility] [address] [place], [address] Hematocrit (Bld) [Volume fraction] 37.9 % Low 40-54 [facility] Comment on above: Performed By: #### L 100.0100, L500.4050 ####[facility] [address] [place], [address] Hemoglobin (Bld) [Mass/Vol] 12.4 g/dL Low 13.0-16.5 [facility] Comment on above: Performed By: #### L 100.0100, L500.4050 ####[facility] [address] [place], [address] IG% 1.100 High 0.0-0.9 [facility] Comment on above: Result Comment: IG% - Immature Granulocytes (promyelocytes, myelocytes andmetamyelocytes) > 1% indicates that a LEFT SHIFT is Present. Performed By: #### L 100.0100, L500.4050 ####[facility] [address] [place], [address] Lymphocytes/100 WBC (Bld) 9.3 % Low 19-41 [facility] Comment on above: Performed By: #### L 100.0100, L500.4050 ####[facility] [address] [place], [address] MCH (RBC) [Entitic mass] 30.5 pg Normal 27.0-32.0 [facility] Comment on above: Performed By: #### L 100.0100, L500.4050 ####[facility] [address] [place], [address] MCHC (RBC) [Mass/Vol] 32.7 g/dL Normal 32-[address] [facility] Comment on above: Performed By: #### L 100.0100, L500.4050 ####[facility] [address] [place], [address] MCV (RBC) [Entitic vol] 93.1 fL Normal 80-94 [facility] Comment on above: Performed By: #### L 100.0100, L500.4050 ####[facility] [address] [place], [address] Monocytes/100 WBC (Bld) 14.8 % High 0-10 [facility] Comment on above: Performed By: #### L 100.0100, L500.4050 ####[facility] [address] [place], [address] Neutrophils/100 WBC (Bld) 69.3 % Normal 47-70 [facility] Comment on above: Performed By: #### L 100.0100, L500.4050 ####[facility] [address] [place], [address] Nucleated RBC (Bld) [#/Vol] 0 10*3/uL Normal 0-5 [facility] Comment on above: Performed By: #### L 100.0100, L500.4050 ####[facility] [address] [place], [address] Platelet mean volume (Bld) [Entitic vol] 10.4 fL Normal 6.2-12.0 [facility] Comment on above: Performed By: #### L 100.0100, L500.4050 ####[facility] [address] [place], [address] Platelets (Bld) [#/Vol] 195 10*3/uL Normal 150-450 [facility] Comment on above: Performed By: #### L 100.0100, L500.4050 ####[facility] [address] [place], [address] RBC (Bld) [#/Vol] 4.07 10*6/uL Low 4.6-6.2 [facility] Comment on above: Performed By: #### L 100.0100, L500.4050 ####[facility] [address] [place], [address] RDW SD 49.3 fl High 35.1-43.9 [facility] Comment on above: Performed By: #### L 100.0100, L500.4050 ####[facility] [address] [place], [address] WBC (Bld) [#/Vol] 8.3 10*3/uL Normal 4.4-11.0 [facility] Comment on above: Performed By: #### L 100.0100, L500.4050 ####[facility] [address] [place], [address] Chest Insp/Exp 2 Viewon 01-03 Chest Insp/Exp 2 View Normal [facility] Comprehensive Metabolic Prof ilon 01-28-2024 Albumin [Mass/Vol] 2.9 g/dL Low 3.2-5.0 [facility] Comment on above: Performed By: #### L 100.0100, L500.4050 ####[facility] [address] [place], [address] Albumin/Globulin [Mass ratio] 0.7 {ratio} Low 0.9-2.4 [facility] Comment on above: Performed By: #### L 100.0100, L500.4050 ####[facility] [address] [place], [address] ALK P 180 U/L High 45-117 [facility] Comment on above: Performed By: #### L 100.0100, L500.4050 ####[facility] [address] [place], [address] ALT [Catalytic activity/Vol] 17 U/L Normal 16-61 [facility] Comment on above: Performed By: #### L 100.0100, L500.4050 ####[facility] [address] [place], [address] AST [Catalytic activity/Vol] 43 U/L High 15-37 [facility] Comment on above: Performed By: #### L 100.0100, L500.4050 ####[facility] [address] [place], [address] Bilirubin [Mass/Vol] 1.10 mg/dL High 0.20-1.00 [facility] Comment on above: Result Comment: For patients on eltrombopag therapy, use of Dimension Quinlan TBIL is not recommended. Performed By: #### L 100.0100, L500.4050 ####[facility] [address] [place], [address] BUN/CRE 10.5 RATIO Normal 10-20 [facility] Comment on above: Performed By: #### L 100.0100, L500.4050 ####[facility] [address] [place], [address] CA,Total 8.6 mg/dL Normal 8.5-10.1 [facility] Comment on above: Performed By: #### L 100.0100, L500.4050 ####[facility] [address] [place], [address] Chloride [Moles/Vol] 105 mmol/L Normal 98-107 [facility] Comment on above: Performed By: #### L 100.0100, L500.4050 ####[facility] [address] [place], [address] CO2 [Moles/Vol] 26.0 mmol/L Normal 21.0-32.0 [facility] Comment on above: Performed By: #### L 100.0100, L500.4050 ####[facility] [address] [place], [address] Creatinine [Mass/Vol] 0.95 mg/dL Normal 0.70-1.[address] [facility] Comment on above: Result Comment: The validity of the calculated GFR GFRAA in patients over70 years has not been determined. Clinical correlation isessential. Performed By: #### L 100.0100, L500.4050 ####[facility] [address] [place], [address] ECRCL 80.00 ml/min Normal [facility] Comment on above: Performed By: #### L 100.0100, L500.4050 ####[facility] [address] [place], [address] EST GFR - AA 99 mL/min Normal >60 [facility] Comment on above: Result Comment: Afri can Trinidadian GFR Calc Performed By: #### L 100.0100, L500.4050 ####[facility] [address] [place], [address] GAP 7 Normal 5-15 [facility] Comment on above: Performed By: #### L 100.0100, L500.4050 ####[facility] [address] [place], [address] GFR/1.73 sq M.predicted among non-blacks MDRD (S/P/Bld) [Vol rate/Area] 82 mL/min/{1.73_m2} Normal >60 [facility] [facility] Comment on above: Result Comment: Non- GFR Calc Performed By: #### L 100.0100, L500.4050 ####[facility] [address] [place], [address] Globulin (S) [Mass/Vol] 4.3 g/dL High 2.2-4.2 [facility] Comment on above: Performed By: #### L 100.0100, L500.4050 ####[facility] [address] [place], [address] Glucose [Mass/Vol] 101 mg/dL Normal 74-106 [facility] Comment on above: Result Comment: Fast ing Glucose result from 100 to 125 mg/dLsuggests IMPAIRED HOMEOSTASIS per A.D.A. criteria. Performed By: #### L 100.0100, L500.4050 ####[facility] [address] [place], [address] Potassium [Moles/Vol] 4.0 mmol/L Normal 3.5-5.[address] [facility] Comment on above: Performed By: #### L 100.0100, L500.4050 ####[facility] [address] [place], [address] Sodium [Moles/Vol] 138 mmol/L Normal 136-145 [facility] Comment on above: Performed By: #### L 100.0100, L500.4050 ####[facility] [address] [place], [address] T PROT 7.2 g/dL Normal 6.4-8.2 [facility] Comment on above: Performed By: #### L 100.0100, L500.4050 ####[facility] [address] [place], [address] Urea nitrogen [Mass/Vol] 10 mg/dL Normal 7-18 [facility] Comment on above: Performed By: #### L 100.0100, L500.4050 ####[facility] [address] [place], [address] Culture, Blood (WB)on 2023 CUB No growth in 5 days. Normal [facility] Comment on above: Performed By: #### M 200.1000 ####[facility] [address] [place], [address] Cytology, Body Fluid / CSFon 01-28-2024 CYTOLOGY,BF/CSF SEE PATHOLOGY REPORT Normal [facility] Comment on above: Result Comment: Spec imen submitted to Anatomical Pathology Department fortesting. Performed By: #### L 350.1000 ####[facility] [address] [place], [address] Gram Stainon 01-28-2024 GS Centrifuged Specimen ? Culture performed on centrifuged specimen Gram Stain 3+ Red Blood Cells Rare White Blood Cells No organisms seen Normal [facility] Comment on above: Performed By: #### M 100.2000, L200.0200, M100.4001, M100.2900 ####[facility] [address] [place], [address] Partial Thromboplast Timeon 01-28-2024 aPTT Coag (Bld) [Time] 65.2 s High 24.1-36.2 [facility] Comment on above: Performed By: #### L 300.4310 ####[facility] [address] [place], [address] aPTT Coag (Bld) [Time] 34.4 s Normal 24.1-36.2 [facility] Comment on above: Performed By: #### L 300.4310 ####[facility] [address] [place], [address] aPTT Coag (Bld) [Time] 57.3 s High 24.1-36.2 [facility] Comment on above: Performed By: #### L 300.4310 ####[facility] [address] [place], [address] Procedure Reporton Procedure Report Normal [facility] Special Stain Group IIon Special Stain Group II Normal [facility] Comment on above: Performed By: #### P SSII ####[facility] [address] [place], [address] CBC W/Diff, Automatedon 01-03 Absolute Lymph 0.67 X10 3/uL Low 0.83-4.51 [facility] Comment on above: Performed By: #### L 100.0100, L500.4050 ####[facility] [address] [place], [address] Absolute Neut 5.7 X10 3/uL Normal 2.0-7.7 [facility] Comment on above: Performed By: #### L 100.0100, L500.4050 ####[facility] [address] [place], [address] Basophils/100 WBC (Bld) 0.9 % Normal 0-1 [facility] Comment on above: Performed By: #### L 100.0100, L500.4050 ####[facility] [address] [place], [address] Eosinophils/100 WBC (Bld) 4.3 % Normal 0-5 [facility] Comment on above: Performed By: #### L 100.0100, L500.4050 ####[facility] [address] [place], [address] Erythrocyte distribution width (RBC) [Ratio] 14.2 % Normal 11.6-14.6 [facility] Comment on above: Performed By: #### L 100.0100, L500.4050 ####[facility] [address] [place], [address] Hematocrit (Bld) [Volume fraction] 37.2 % Low 40-54 [facility] Comment on above: Performed By: #### L 100.0100, L500.4050 ####[facility] [address] [place], [address] Hemoglobin (Bld) [Mass/Vol] 12.3 g/dL Low 13.0-16.5 [facility] Comment on above: Performed By: #### L 100.0100, L500.4050 ####[facility] [address] [place], [address] IG% 0.800 Normal 0.0-0.9 [facility] Comment on above: Result Comment: IG% - Immature Granulocytes (promyelocytes, myelocytes andmetamyelocytes) > 1% indicates that a LEFT SHIFT is Present. Performed By: #### L 100.0100, L500.4050 ####[facility] [address] [place], [address] Lymphocytes/100 WBC (Bld) 8.4 % Low 19-41 [facility] Comment on above: Performed By: #### L 100.0100, L500.4050 ####[facility] [address] [place], [address] MCH (RBC) [Entitic mass] 30.4 pg Normal 27.0-32.0 [facility] Comment on above: Performed By: #### L 100.0100, L500.4050 ####[facility] [address] [place], [address] MCHC (RBC) [Mass/Vol] 33.1 g/dL Normal 32-[address] [facility] Comment on above: Performed By: #### L 100.0100, L500.4050 ####[facility] [address] [place], [address] MCV (RBC) [Entitic vol] 92.1 fL Normal 80-94 [facility] Comment on above: Performed By: #### L 100.0100, L500.4050 ####[facility] [address] [place], [address] Monocytes/100 WBC (Bld) 13.8 % High 0-10 [facility] Comment on above: Performed By: #### L 100.0100, L500.4050 ####[facility] [address] [place], [address] Neutrophils/100 WBC (Bld) 71.8 % High 47-70 [facility] Comment on above: Performed By: #### L 100.0100, L500.4050 ####[facility] [address] [place], [address] Nucleated RBC (Bld) [#/Vol] 0 10*3/uL Normal 0-5 [facility] Comment on above: Performed By: #### L 100.0100, L500.4050 ####[facility] [address] [place], [address] Platelet mean volume (Bld) [Entitic vol] 10.5 fL Normal 6.2-12.0 [facility] Comment on above: Performed By: #### L 100.0100, L500.4050 ####[facility] [address] [place], [address] Platelets (Bld) [#/Vol] 192 10*3/uL Normal 150-450 [facility] Comment on above: Performed By: #### L 100.0100, L500.4050 ####[facility] [address] [place], [address] RBC (Bld) [#/Vol] 4.04 10*6/uL Low 4.6-6.2 [facility] Comment on above: Performed By: #### L 100.0100, L500.4050 ####[facility] [address] [place], [address] RDW SD 48.4 fl High 35.1-43.9 [facility] Comment on above: Performed By: #### L 100.0100, L500.4050 ####[facility] [address] [place], [address] WBC (Bld) [#/Vol] 8.0 10*3/uL Normal 4.4-11.0 [facility] Comment on above: Performed By: #### L 100.0100, L500.4050 ####[facility] [address] [place], [address] Comprehensive Metabolic Prof [facility] 01-27-2024 Albumin [Mass/Vol] 2.8 g/dL Low 3.2-5.0 [facility] Comment on above: Performed By: #### L 100.0100, L500.4050 ####[facility] [address] [place], [address] Albumin/Globulin [Mass ratio] 0.7 {ratio} Low 0.9-2.4 [facility] Comment on above: Performed By: #### L 100.0100, L500.4050 ####[facility] [address] [place], [address] ALK P 175 U/L High 45-117 [facility] Comment on above: Performed By: #### L 100.0100, L500.4050 ####[facility] [address] [place], [address] ALT [Catalytic activity/Vol] 21 U/L Normal 16-61 [facility] Comment on above: Performed By: #### L 100.0100, L500.4050 ####[facility] [address] [place], [address] AST [Catalytic activity/Vol] 40 U/L High 15-37 [facility] Comment on above: Performed By: #### L 100.0100, L500.4050 ####[facility] [address] [place], [address] Bilirubin [Mass/Vol] 0.90 mg/dL Normal 0.20-1.00 [facility] Comment on above: Result Comment: For patients on eltrombopag therapy, use of Dimension Quinlan TBIL is not recommended. Performed By: #### L 100.0100, L500.4050 ####[facility] [address] [place], [address] BUN/CRE 14.0 RATIO Normal 10-20 [facility] Comment on above: Performed By: #### L 100.0100, L500.4050 ####[facility] [address] [place], [address] CA,Total 8.5 mg/dL Normal 8.5-10.1 [facility] Comment on above: Performed By: #### L 100.0100, L500.4050 ####[facility] [address] [place], [address] Chloride [Moles/Vol] 108 mmol/L High 98-107 [facility] Comment on above: Performed By: #### L 100.0100, L500.4050 ####[facility] [address] [place], [address] CO2 [Moles/Vol] 25.0 mmol/L Normal 21.0-32.0 [facility] Comment on above: Performed By: #### L 100.0100, L500.4050 ####[facility] [address] [place], [address] Creatinine [Mass/Vol] 0.86 mg/dL Normal 0.70-1.[address] [facility] Comment on above: Result Comment: The validity of the calculated GFR GFRAA in patients over70 years has not been determined. Clinical correlation isessential. Performed By: #### L 100.0100, L500.4050 ####[facility] [address] [place], [address] ECRCL 88.67 ml/min Normal [facility] Comment on above: Performed By: #### L 100.0100, L500.4050 ####[facility] [address] [place], [address] EST GFR - AA 110 mL/min Normal >60 [facility] Comment on above: Result Comment: Afri can Trinid[place] GFR Calc Performed By: #### L 100.0100, L500.4050 ####[facility] [address] [place], [address] GAP 5 Normal 5-15 [facility] Comment on above: Performed By: #### L 100.0100, L500.4050 ####[facility] [address] [place], [address] GFR/1.73 sq M.predicted among non-blacks MDRD (S/P/Bld) [Vol rate/Area] 91 mL/min/{1.73_m2} Normal >60 [facility] Comment on above: Result Comment: Non- GFR Calc Performed By: #### L 100.0100, L500.4050 ####[facility] [address] [place], [address] Globulin (S) [Mass/Vol] 4.3 g/dL High 2.2-4.2 [facility] Comment on above: Performed By: #### L 100.0100, L500.4050 ####[facility] [address] [place], [address] Glucose [Mass/Vol] 114 mg/dL High 74-106 [facility] Comment on above: Result Comment: Fast ing Glucose result from 100 to 125 mg/dLsuggests IMPAIRED HOMEOSTASIS per A.D.A. criteria. Performed By: #### L 100.0100, L500.4050 ####[facility] [address] [place], [address] Potassium [Moles/Vol] 3.9 mmol/L Normal 3.5-5.[address] [facility] Comment on above: Performed By: #### L 100.0100, L500.4050 ####[facility] [address] [place], [address] Sodium [Moles/Vol] 138 mmol/L Normal 136-145 [facility] Comment on above: Performed By: #### L 100.0100, L500.4050 ####[facility] [address] [place], [address] T PROT 7.1 g/dL Normal 6.4-8.2 [facility] Comment on above: Performed By: #### L 100.0100, L500.4050 ####[facility] [address] [place], [address] Urea nitrogen [Mass/Vol] 12 mg/dL Normal 7-18 [facility] Comment on above: Performed By: #### L 100.0100, L500.4050 ####[facility] [address] [place], [address] Culture, Blood (WB)on 2023 CUB No growth in 5 days. Normal [facility] Comment on above: Performed By: #### M 200.1000 ####[facility] [address] [place], [address] Partial Thromboplast Timeon 01-27-2024 aPTT Coag (Bld) [Time] 48.4 s High 24.1-36.2 [facility] Comment on above: Performed By: #### L 300.4310 ####[facility] [address] [place], [address] aPTT Coag (Bld) [Time] 59.7 s High 24.1-36.2 [facility] Comment on above: Performed By: #### L 300.4310 ####[facility] [address] [place], [address] aPTT Coag (Bld) [Time] 52.1 s High 24.1-36.2 [facility] Comment on above: Performed By: #### L 300.4310 ####[facility] [address] [place], [address] aPTT Coag (Bld) [Time] 60.5 s High 24.1-36.2 [facility] Comment on above: Performed By: #### L 300.4310 ####[facility] [address] [place], [address] Prothrombin Time w/INRon INR Coag (PPP) [Relative time] 1.7 {INR} Normal [facility] Comment on above: Performed By: #### L 300.3900 ####[facility] [address] [place], [address] PT Coag (PPP) [Time] 19.9 s High 11.7-14.9 [facility] Comment on above: Performed By: #### L 300.3900 ####[facility] [address] [place], [address] CBC W/Diff, Automatedon - Absolute Lymph 0.70 X10 3/uL Low 0.83-4.51 [facility] Comment on above: Performed By: #### L 500.4050, L100.0100 ####[facility] [address] [place], [address] Absolute Neut 6.1 X10 3/uL Normal 2.0-7.7 [facility] Comment on above: Performed By: #### L 500.4050, L100.0100 ####[facility] [address] [place], [address] Basophils/100 WBC (Bld) 1.0 % Normal 0-1 [facility] Comment on above: Performed By: #### L 500.4050, L100.0100 ####[facility] [address] [place], [address] Eosinophils/100 WBC (Bld) 5.2 % High 0-5 [facility] Comment on above: Performed By: #### L 500.4050, L100.0100 ####[facility] [address] [place], [address] Erythrocyte distribution width (RBC) [Ratio] 14.0 % Normal 11.6-14.6 [facility] Comment on above: Performed By: #### L 500.4050, L100.0100 ####[facility] [address] [place], [address] Hematocrit (Bld) [Volume fraction] 36.5 % Low 40-54 [facility] Comment on above: Performed By: #### L 500.4050, L100.0100 ####[facility] [address] [place], [address] Hemoglobin (Bld) [Mass/Vol] 12.1 g/dL Low 13.0-16.5 [facility] Comment on above: Performed By: #### L 500.4050, L100.0100 ####[facility] [address] [place], [address] IG% 0.700 Normal 0.0-0.9 [facility] Comment on above: Result Comment: IG% - Immature Granulocytes (promyelocytes, myelocytes andmetamyelocytes) > 1% indicates that a LEFT SHIFT is Present. Performed By: #### L 500.4050, L100.0100 ####[facility] [address] [place], [address] Lymphocytes/100 WBC (Bld) 8.3 % Low 19-41 [facility] Comment on above: Performed By: #### L 500.4050, L100.0100 ####[facility] [address] [place], [address] MCH (RBC) [Entitic mass] 30.1 pg Normal 27.0-32.0 [facility] Comment on above: Performed By: #### L 500.4050, L100.0100 ####[facility] [address] [place], [address] MCHC (RBC) [Mass/Vol] 33.2 g/dL Normal 32-[address] [facility] Comment on above: Performed By: #### L 500.4050, L100.0100 ####[facility] [address] [place], [address] MCV (RBC) [Entitic vol] 90.8 fL Normal 80-94 [facility] Comment on above: Performed By: #### L 500.4050, L100.0100 ####[facility] [address] [place], [address] Monocytes/100 WBC (Bld) 12.1 % High 0-10 [facility] Comment on above: Performed By: #### L 500.4050, L100.0100 ####[facility] [address] [place], [address] Neutrophils/100 WBC (Bld) 72.7 % High 47-70 [facility] Comment on above: Performed By: #### L 500.4050, L100.0100 ####[facility] [address] [place], [address] Nucleated RBC (Bld) [#/Vol] 0 10*3/uL Normal 0-5 [facility] Comment on above: Performed By: #### L 500.4050, L100.0100 ####[facility] [address] [place], [address] Platelet mean volume (Bld) [Entitic vol] 10.2 fL Normal 6.2-12.0 [facility] Comment on above: Performed By: #### L 500.4050, L100.0100 ####[facility] [address] [place], [address] Platelets (Bld) [#/Vol] 173 10*3/uL Normal 150-450 [facility] Comment on above: Performed By: #### L 500.4050, L100.0100 ####[facility] [address] [place], [address] RBC (Bld) [#/Vol] 4.02 10*6/uL Low 4.6-6.2 [facility] Comment on above: Performed By: #### L 500.4050, L100.0100 ####[facility] [address] [place], [address] RDW SD 47.1 fl High 35.1-43.9 [facility] Comment on above: Performed By: #### L 500.4050, L100.0100 ####[facility] [address] [place], [address] WBC (Bld) [#/Vol] 8.4 10*3/uL Normal 4.4-11.0 [facility] Comment on above: Performed By: #### L 500.4050, L100.0100 ####[facility] [address] [place], [address] Comprehensive Metabolic Prof [facility] 01-26-2024 Albumin [Mass/Vol] 3.0 g/dL Low 3.2-5.0 [facility] Comment on above: Performed By: #### L 500.4050, L100.0100 ####[facility] [address] [place], [address] Albumin/Globulin [Mass ratio] 0.7 {ratio} Low 0.9-2.4 [facility] Comment on above: Performed By: #### L 500.4050, L100.0100 ####[facility] [address] [place], [address] ALK P 179 U/L High 45-117 [facility] Comment on above: Performed By: #### L 500.4050, L100.0100 ####[facility] [address] [place], [address] ALT [Catalytic activity/Vol] 23 U/L Normal 16-61 [facility] Comment on above: Performed By: #### L 500.4050, L100.0100 ####[facility] [address] [place], [address] AST [Catalytic activity/Vol] 46 U/L High 15-37 [facility] Comment on above: Performed By: #### L 500.4050, L100.0100 ####[facility] [address] [place], [address] Bilirubin [Mass/Vol] 0.90 mg/dL Normal 0.20-1.00 [facility] Comment on above: Result Comment: For patients on eltrombopag therapy, use of Dimension Quinlan TBIL is not recommended. Performed By: #### L 500.4050, L100.0100 ####[facility] [address] [place], [address] BUN/CRE 12.0 RATIO Normal 10-20 [facility] Comment on above: Performed By: #### L 500.4050, L100.0100 ####[facility] [address] [place], [address] CA,Total 8.6 mg/dL Normal 8.5-10.1 [facility] Comment on above: Performed By: #### L 500.4050, L100.0100 ####[facility] [address] [place], [address] Chloride [Moles/Vol] 107 mmol/L Normal 98-107 [facility] Comment on above: Performed By: #### L 500.4050, L100.0100 ####[facility] [address] [place], [address] CO2 [Moles/Vol] 24.0 mmol/L Normal 21.0-32.0 [facility] Comment on above: Performed By: #### L 500.4050, L100.0100 ####[facility] [address] [place], [address] Creatinine [Mass/Vol] 0.84 mg/dL Normal 0.70-1.[address] [facility] Comment on above: Result Comment: The validity of the calculated GFR GFRAA in patients over70 years has not been determined. Clinical correlation isessential. Performed By: #### L 500.4050, L100.0100 ####[facility] [address] [place], [address] ECRCL 90.79 ml/min Normal [facility] Comment on above: Performed By: #### L 500.4050, L100.0100 ####[facility] [address] [place], [address] EST GFR - AA 114 mL/min Normal >60 [facility] Comment on above: Result Comment: Afri can Trinidadian GFR Calc Performed By: #### L 500.4050, L100.0100 ####[facility] [address] [place], [address] GAP 7 Normal 5-15 [facility] Comment on above: Performed By: #### L 500.4050, L100.0100 ####[facility] [address] [place], [address] GFR/1.73 sq M.predicted among non-blacks MDRD (S/P/Bld) [Vol rate/Area] 94 mL/min/{1.73_m2} Normal >60 [facility] Comment on above: Result Comment: Non- GFR Calc Performed By: #### L 500.4050, L100.0100 ####[facility] [address] [place], [address] Globulin (S) [Mass/Vol] 4.2 g/dL Normal 2.2-4.2 [facility] Comment on above: Performed By: #### L 500.4050, L100.0100 ####[facility] [address] [place], [address] Glucose [Mass/Vol] 120 mg/dL High 74-106 [facility] Comment on above: Result Comment: Fast ing Glucose result from 100 to 125 mg/dLsuggests IMPAIRED HOMEOSTASIS per A.D.A. criteria. Performed By: #### L 500.4050, L100.0100 ####[facility] [address] [place], [address] Potassium [Moles/Vol] 3.8 mmol/L Normal 3.5-5.[address] [facility] Comment on above: Performed By: #### L 500.4050, L100.0100 ####[facility] [address] [place], [address] Sodium [Moles/Vol] 138 mmol/L Normal 136-145 [facility] Comment on above: Performed By: #### L 500.4050, L100.0100 ####[facility] [address] [place], [address] T PROT 7.2 g/dL Normal 6.4-8.2 [facility] Comment on above: Performed By: #### L 500.4050, L100.0100 ####[facility] [address] [place], [address] Urea nitrogen [Mass/Vol] 10 mg/dL Normal 7-18 [facility] Comment on above: Performed By: #### L 500.4050, L100.0100 ####[facility] [address] [place], [address] Partial Thromboplast Timeon 01-26-2024 aPTT Coag (Bld) [Time] 53.6 s High 24.1-36.2 [facility] Comment on above: Performed By: #### L 300.4310 ####[facility] [address] [place], [address] aPTT Coag (Bld) [Time] 44.9 s High 24.1-36.2 [facility] Comment on above: Order Comment: VRI Performed By: #### L 300.4310 ####[facility] [address] [place], [address] aPTT Coag (Bld) [Time] 46.2 s High 24.1-36.2 [facility] Comment on above: Order Comment: Comme nts: heparin gtt Performed By: #### L 300.4310 ####[facility] [address] [place], [address] aPTT Coag (Bld) [Time] 57.9 s High 24.1-36.2 [facility] Comment on above: Order Comment: Comme nts: heparin gtt Performed By: #### L 300.4310 ####[facility] [address] [place], [address] Prothrombin Time w/INRon INR Coag (PPP) [Relative time] 2.0 {INR} Normal [facility] Comment on above: Performed By: #### L 300.3900 ####[facility] [address] [place], [address] PT Coag (PPP) [Time] 23.0 s High 11.7-14.9 [facility] Comment on above: Performed By: #### L 300.3900 ####[facility] [address] [place], [address] CBC W/Diff, Automatedon 01-03 Absolute Lymph 0.46 X10 3/uL Low 0.83-4.51 [facility] Comment on above: Performed By: #### L 100.0100, L500.4050 ####[facility] [address] [place], [address] Absolute Neut 4.4 X10 3/uL Normal 2.0-7.7 [facility] Comment on above: Performed By: #### L 100.0100, L500.4050 ####[facility] [address] [place], [address] Basophils/100 WBC (Bld) 0.8 % Normal 0-1 [facility] Comment on above: Performed By: #### L 100.0100, L500.4050 ####[facility] [address] [place], [address] Eosinophils/100 WBC (Bld) 5.8 % High 0-5 [facility] Comment on above: Performed By: #### L 100.0100, L500.4050 ####[facility] [address] [place], [address] Erythrocyte distribution width (RBC) [Ratio] 14.2 % Normal 11.6-14.6 [facility] Comment on above: Performed By: #### L 100.0100, L500.4050 ####[facility] [address] [place], [address] Hematocrit (Bld) [Volume fraction] 29.9 % Low 40-54 [facility] Comment on above: Performed By: #### L 100.0100, L500.4050 ####[facility] [address] [place], [address] Hemoglobin (Bld) [Mass/Vol] 9.8 g/dL Low 13.0-16.5 [facility] Comment on above: Performed By: #### L 100.0100, L500.4050 ####[facility] [address] [place], [address] IG% 0.600 Normal 0.0-0.9 [facility] Comment on above: Result Comment: IG% - Immature Granulocytes (promyelocytes, myelocytes andmetamyelocytes) > 1% indicates that a LEFT SHIFT is Present. Performed By: #### L 100.0100, L500.4050 ####[facility] [address] [place], [address] Lymphocytes/100 WBC (Bld) 7.4 % Low 19-41 [facility] Comment on above: Performed By: #### L 100.0100, L500.4050 ####[facility] [address] [place], [address] MCH (RBC) [Entitic mass] 30.6 pg Normal 27.0-32.0 [facility] Comment on above: Performed By: #### L 100.0100, L500.4050 ####[facility] [address] [place], [address] MCHC (RBC) [Mass/Vol] 32.8 g/dL Normal 32-[address] [facility] Comment on above: Performed By: #### L 100.0100, L500.4050 ####[facility] [address] [place], [address] MCV (RBC) [Entitic vol] 93.4 fL Normal 80-94 [facility] Comment on above: Performed By: #### L 100.0100, L500.4050 ####[facility] [address] [place], [address] Monocytes/100 WBC (Bld) 14.8 % High 0-10 [facility] Comment on above: Performed By: #### L 100.0100, L500.4050 ####[facility] [address] [place], [address] Neutrophils/100 WBC (Bld) 70.6 % High 47-70 [facility] Comment on above: Performed By: #### L 100.0100, L500.4050 ####[facility] [address] [place], [address] Nucleated RBC (Bld) [#/Vol] 0 10*3/uL Normal 0-5 [facility] Comment on above: Performed By: #### L 100.0100, L500.4050 ####[facility] [address] [place], [address] Platelet mean volume (Bld) [Entitic vol] 10.4 fL Normal 6.2-12.0 [facility] Comment on above: Performed By: #### L 100.0100, L500.4050 ####[facility] [address] [place], [address] Platelets (Bld) [#/Vol] 137 10*3/uL Low 150-450 [facility] Comment on above: Performed By: #### L 100.0100, L500.4050 ####[facility] [address] [place], [address] RBC (Bld) [#/Vol] 3.20 10*6/uL Low 4.6-6.2 [facility] Comment on above: Performed By: #### L 100.0100, L500.4050 ####[facility] [address] [place], [address] RDW SD 47.8 fl High 35.1-43.9 [facility] Comment on above: Performed By: #### L 100.0100, L500.4050 ####[facility] [address] [place], [address] WBC (Bld) [#/Vol] 6.2 10*3/uL Normal 4.4-11.0 [facility] Comment on above: Performed By: #### L 100.0100, L500.4050 ####[facility] [address] [place], [address] CBC-Complete Blood Cnt No Di ffon 01-25-2024 Erythrocyte distribution width (RBC) [Ratio] 14.4 % Normal 11.6-14.6 [facility] Comment on above: Order Comment: Comme nts: please redraw Performed By: #### L 100.0500 ####[facility] [address] [place], [address] Hematocrit (Bld) [Volume fraction] 41.6 % Normal 40-54 [facility] Comment on above: Order Comment: Comme nts: please redraw Performed By: #### L 100.0500 ####[facility] [address] [place], [address] Hemoglobin (Bld) [Mass/Vol] 13.4 g/dL Normal 13.0-16.5 [facility] Comment on above: Order Comment: Comme nts: please redraw Performed By: #### L 100.0500 ####[facility] [address] [place], [address] MCH (RBC) [Entitic mass] 30.2 pg Normal 27.0-32.0 [facility] Comment on above: Order Comment: Comme nts: please redraw Performed By: #### L 100.0500 ####[facility] [address] [place], [address] MCHC (RBC) [Mass/Vol] 32.2 g/dL Normal 32-[address] [facility] Comment on above: Order Comment: Comme nts: please redraw Performed By: #### L 100.0500 ####[facility] [address] [place], [address] MCV (RBC) [Entitic vol] 93.9 fL Normal 80-94 [facility] Comment on above: Order Comment: Comme nts: please redraw Performed By: #### L 100.0500 ####[facility] [address] [place], [address] Platelet mean volume (Bld) [Entitic vol] 10.3 fL Normal 6.2-12.0 [facility] Comment on above: Order Comment: Comme nts: please redraw Performed By: #### L 100.0500 ####[facility] [address] [place], [address] Platelets (Bld) [#/Vol] 199 10*3/uL Normal 150-450 [facility] Comment on above: Order Comment: Comme nts: please redraw Performed By: #### L 100.0500 ####[facility] [address] [place], [address] RBC (Bld) [#/Vol] 4.43 10*6/uL Low 4.6-6.2 [facility] Comment on above: Order Comment: Comme nts: please redraw Performed By: #### L 100.0500 ####[facility] [address] [place], [address] RDW SD 49.3 fl High 35.1-43.9 [facility] Comment on above: Order Comment: Comme nts: please redraw Performed By: #### L 100.0500 ####[facility] [address] [place], [address] WBC (Bld) [#/Vol] 9.2 10*3/uL Normal 4.4-11.0 [facility] Comment on above: Order Comment: Comme nts: please redraw Performed By: #### L 100.0500 ####[facility] [address] [place], [address] Comprehensive Metabolic Prof ilon 01-25-2024 Albumin [Mass/Vol] 3.0 g/dL Low 3.2-5.0 [facility] Comment on above: Order Comment: pleas e redraw Performed By: #### L 500.4050 ####[facility] [address] [place], [address] Albumin/Globulin [Mass ratio] 0.6 {ratio} Low 0.9-2.4 [facility] Comment on above: Order Comment: pleas e redraw Performed By: #### L 500.4050 ####[facility] [address] [place], [address] ALK P 198 U/L High 45-117 [facility] Comment on above: Order Comment: pleas e redraw Performed By: #### L 500.4050 ####[facility] [address] [place], [address] ALT [Catalytic activity/Vol] 29 U/L Normal 16-61 [facility] Comment on above: Order Comment: pleas e redraw Performed By: #### L 500.4050 ####[facility] [address] [place], [address] AST [Catalytic activity/Vol] 49 U/L High 15-37 [facility] Comment on above: Order Comment: pleas e redraw Performed By: #### L 500.4050 ####[facility] [address] [place], [address] Bilirubin [Mass/Vol] 0.70 mg/dL Normal 0.20-1.00 [facility] Comment on above: Order Comment: pleas e redraw Result Comment: For patients on eltrombopag therapy, use of Dimension Quinlan TBIL is not recommended. Performed By: #### L 500.4050 ####[facility] [address] [place], [address] BUN/CRE 11.3 RATIO Normal 10-20 [facility] Comment on above: Order Comment: pleas e redraw Performed By: #### L 500.4050 ####[facility] [address] [place], [address] CA,Total 9.1 mg/dL Normal 8.5-10.1 [facility] Comment on above: Order Comment: pleas e redraw Performed By: #### L 500.4050 ####[facility] [address] [place], [address] Chloride [Moles/Vol] 107 mmol/L Normal 98-107 [facility] Comment on above: Order Comment: pleas e redraw Performed By: #### L 500.4050 ####[facility] [address] [place], [address] CO2 [Moles/Vol] 22.0 mmol/L Normal 21.0-32.0 [facility] Comment on above: Order Comment: pleas e redraw Performed By: #### L 500.4050 ####[facility] [address] [place], [address] Creatinine [Mass/Vol] 0.97 mg/dL Normal 0.70-1.[address] [facility] Comment on above: Order Comment: pleas e redraw Result Comment: The validity of the calculated GFR GFRAA in patients over70 years has not been determined. Clinical correlation isessential. Performed By: #### L 500.4050 ####[facility] [address] [place], [address] ECRCL 78.48 ml/min Normal [facility] Comment on above: Order Comment: pleas e redraw Performed By: #### L 500.4050 ####[facility] [address] [place], [address] EST GFR - AA 96 mL/min Normal >60 [facility] Comment on above: Order Comment: pleas e redraw Result Comment: Afri can Trinidadian GFR Calc Performed By: #### L 500.4050 ####[facility] [address] [place], [address] GAP 7 Normal 5-15 [facility] Comment on above: Order Comment: pleas e redraw Performed By: #### L 500.4050 ####[facility] [address] [place], [address] GFR/1.73 sq M.predicted among non-blacks MDRD (S/P/Bld) [Vol rate/Area] 79 mL/min/{1.73_m2} Normal >60 [facility] Comment on above: Order Comment: pleas e redraw Result Comment: Non- GFR Calc Performed By: #### L 500.4050 ####[facility] [address] [place], [address] Globulin (S) [Mass/Vol] 4.7 g/dL High 2.2-4.2 [facility] Comment on above: Order Comment: pleas e redraw Performed By: #### L 500.4050 ####[facility] [address] [place], [address] Glucose [Mass/Vol] 120 mg/dL High 74-106 [facility] Comment on above: Order Comment: pleas e redraw Result Comment: Fast ing Glucose result from 100 to 125 mg/dLsuggests IMPAIRED HOMEOSTASIS per A.D.A. criteria. Performed By: #### L 500.4050 ####[facility] [address] [place], [address] Potassium [Moles/Vol] 4.0 mmol/L Normal 3.5-5.[address] [facility] Comment on above: Order Comment: pleas e redraw Performed By: #### L 500.4050 ####[facility] [address] [place], [address] Sodium [Moles/Vol] 136 mmol/L Normal 136-145 [facility] Comment on above: Order Comment: pleas e redraw Performed By: #### L 500.4050 ####[facility] [address] [place], [address] T PROT 7.7 g/dL Normal 6.4-8.2 [facility] Comment on above: Order Comment: pleas e redraw Performed By: #### L 500.4050 ####[facility] [address] [place], [address] Urea nitrogen [Mass/Vol] 11 mg/dL Normal 7-18 [facility] Comment on above: Order Comment: pleas e redraw Performed By: #### L 500.4050 ####[facility] [address] [place], [address] Albumin [Mass/Vol] 1.9 g/dL Low 3.2-5.0 [facility] Comment on above: Performed By: #### L 100.0100, L500.4050 ####[facility] [address] [place], [address] Albumin/Globulin [Mass ratio] 0.7 {ratio} Low 0.9-2.4 [facility] Comment on above: Performed By: #### L 100.0100, L500.4050 ####[facility] [address] [place], [address] ALK P 122 U/L High 45-117 [facility] Comment on above: Performed By: #### L 100.0100, L500.4050 ####[facility] [address] [place], [address] ALT [Catalytic activity/Vol] 15 U/L Low 16-61 [facility] Comment on above: Performed By: #### L 100.0100, L500.4050 ####[facility] [address] [place], [address] AST [Catalytic activity/Vol] 29 U/L Normal 15-37 [facility] Comment on above: Performed By: #### L 100.0100, L500.4050 ####[facility] [address] [place], [address] Bilirubin [Mass/Vol] 0.40 mg/dL Normal 0.20-1.00 [facility] Comment on above: Result Comment: For patients on eltrombopag therapy, use of Dimension Quinlan TBIL is not recommended. Performed By: #### L 100.0100, L500.4050 ####[facility] [address] [place], [address] BUN/CRE 12.3 RATIO Normal 10-20 [facility] Comment on above: Performed By: #### L 100.0100, L500.4050 ####[facility] [address] [place], [address] CA,Total 5.8 mg/dL Invalid Interpretation Code 8.5-10.1 [facility] Comment on above: Result Comment: Crit ical Result(s) Called at: 06:43:33 01/25/2024 by:Keli Fuller. Results read back by same. Performed By: #### L 100.0100, L500.4050 ####[facility] [address] [place], [address] Chloride [Moles/Vol] 119 mmol/L High 98-107 [facility] Comment on above: Performed By: #### L 100.0100, L500.4050 ####[facility] [address] [place], [address] CO2 [Moles/Vol] 22.0 mmol/L Normal 21.0-32.0 [facility] Comment on above: Performed By: #### L 100.0100, L500.4050 ####[facility] [address] [place], [address] Creatinine [Mass/Vol] 0.65 mg/dL Low 0.70-1.[address] [facility] Comment on above: Result Comment: The validity of the calculated GFR GFRAA in patients over70 years has not been determined. Clinical correlation isessential. Performed By: #### L 100.0100, L500.4050 ####[facility] [address] [place], [address] ECRCL 95.15 ml/min Normal [facility] Comment on above: Performed By: #### L 100.0100, L500.4050 ####[facility] [address] [place], [address] EST GFR - AA 153 mL/min Normal >60 [facility] Comment on above: Result Comment: Afri can Trinidadian GFR Calc Performed By: #### L 100.0100, L500.4050 ####[facility] [address] [place], [address] GAP 4 Low 5-15 [facility] Comment on above: Performed By: #### L 100.0100, L500.4050 ####[facility] [address] [place], [address] GFR/1.73 sq M.predicted among non-blacks MDRD (S/P/Bld) [Vol rate/Area] 127 mL/min/{1.73_m2} Normal >60 [facility] Comment on above: Result Comment: Non- GFR Calc Performed By: #### L 100.0100, L500.4050 ####[facility] [address] [place], [address] Globulin (S) [Mass/Vol] 2.8 g/dL Normal 2.2-4.2 [facility] Comment on above: Performed By: #### L 100.0100, L500.4050 ####[facility] [address] [place], [address] Glucose [Mass/Vol] 81 mg/dL Normal 74-106 [facility] Comment on above: Performed By: #### L 100.0100, L500.4050 ####[facility] [address] [place], [address] Potassium [Moles/Vol] 2.6 mmol/L Invalid Interpretation Code 3.5-5.1 [facility] Comment on above: Result Comment: Crit ical Result(s) Called at: 06:43:33 01/25/2024 by:Keli Naranjo to [facility]. Results read back by same. Performed By: #### L 100.0100, L500.4050 ####[facility] [address] [place], [address] Sodium [Moles/Vol] 145 mmol/L Normal 136-145 [facility] Comment on above: Performed By: #### L 100.0100, L500.4050 ####[facility] [address] [place], [address] T PROT 4.7 g/dL Low 6.4-8.2 [facility] Comment on above: Performed By: #### L 100.0100, L500.4050 ####[facility] [address] [place], [address] Urea nitrogen [Mass/Vol] 8 mg/dL Normal 7-18 [facility] Comment on above: Performed By: #### L 100.0100, L500.4050 ####[facility] [address] [place], [address] Partial Thromboplast Timeon 01-25-2024 aPTT Coag (Bld) [Time] 69.4 s High 24.1-36.2 [facility] Comment on above: Performed By: #### L 300.4310 ####[facility] [address] [place], [address] aPTT Coag (Bld) [Time] 50.4 s High 24.1-36.2 [facility] Comment on above: Order Comment: Comme nts: heparin gtt Performed By: #### L 300.4310 ####[facility] [address] [place], [address] aPTT Coag (Bld) [Time] 76.7 s High 24.1-36.2 [facility] Comment on above: Order Comment: Comme nts: heparin gtt Performed By: #### L 300.4310 ####[facility] [address] [place], [address] Prothrombin Time w/INRon INR Coag (PPP) [Relative time] 3.0 {INR} Normal [facility] Comment on above: Performed By: #### L 300.3900 ####[facility] [address] [place], [address] PT Coag (PPP) [Time] 31.1 s High 11.7-14.9 [facility] Comment on above: Performed By: #### L 300.3900 ####[facility] [address] [place], [address] Respiratory Cultureon 2023 RESPC Normal [facility] Comment on above: Performed By: #### M 100.2400, M100.2000 ####[facility] [address] [place], [address] Special CXR (Obl/Decub/A/L)o n 01-25-2024 Special CXR (Obl/Decub/A/L) Normal [facility] 12 Lead EKGon 01-24-2024 12 Lead EKG Normal [facility] CBC W/Diff, Automatedon 01-03 Absolute Lymph 0.57 X10 3/uL Low 0.83-4.51 [facility] Comment on above: Performed By: #### L 500.4050, L100.0100 ####[facility] [address] [place], [address] Absolute Neut 5.7 X10 3/uL Normal 2.0-7.7 [facility] Comment on above: Performed By: #### L 500.4050, L100.0100 ####[facility] [address] [place], [address] Basophils/100 WBC (Bld) 0.7 % Normal 0-1 [facility] Comment on above: Performed By: #### L 500.4050, L100.0100 ####[facility] [address] [place], [address] Eosinophils/100 WBC (Bld) 4.7 % Normal 0-5 [facility] Comment on above: Performed By: #### L 500.4050, L100.0100 ####[facility] [address] [place], [address] Erythrocyte distribution width (RBC) [Ratio] 14.1 % Normal 11.6-14.6 [facility] Comment on above: Performed By: #### L 500.4050, L100.0100 ####[facility] [address] [place], [address] Hematocrit (Bld) [Volume fraction] 37.1 % Low 40-54 [facility] Comment on above: Performed By: #### L 500.4050, L100.0100 ####[facility] [address] [place], [address] Hemoglobin (Bld) [Mass/Vol] 11.9 g/dL Low 13.0-16.5 [facility] Comment on above: Performed By: #### L 500.4050, L100.0100 ####[facility] [address] [place], [address] IG% 0.600 Normal 0.0-0.9 [facility] Comment on above: Result Comment: IG% - Immature Granulocytes (promyelocytes, myelocytes andmetamyelocytes) > 1% indicates that a LEFT SHIFT is Present. Performed By: #### L 500.4050, L100.0100 ####[facility] [address] [place], [address] Lymphocytes/100 WBC (Bld) 7.1 % Low 19-41 [facility] Comment on above: Performed By: #### L 500.4050, L100.0100 ####[facility] [address] [place], [address] MCH (RBC) [Entitic mass] 29.8 pg Normal 27.0-32.0 [facility] Comment on above: Performed By: #### L 500.4050, L100.0100 ####[facility] [address] [place], [address] MCHC (RBC) [Mass/Vol] 32.1 g/dL Normal 32-[address] [facility] Comment on above: Performed By: #### L 500.4050, L100.0100 ####[facility] [address] [place], [address] MCV (RBC) [Entitic vol] 93.0 fL Normal 80-94 [facility] Comment on above: Performed By: #### L 500.4050, L100.0100 ####[facility] [address] [place], [address] Monocytes/100 WBC (Bld) 16.0 % High 0-10 [facility] Comment on above: Performed By: #### L 500.4050, L100.0100 ####[facility] [address] [place], [address] Neutrophils/100 WBC (Bld) 70.9 % High 47-70 [facility] Comment on above: Performed By: #### L 500.4050, L100.0100 ####[facility] [address] [place], [address] Nucleated RBC (Bld) [#/Vol] 0 10*3/uL Normal 0-5 [facility] Comment on above: Performed By: #### L 500.4050, L100.0100 ####[facility] [address] [place], [address] Platelet mean volume (Bld) [Entitic vol] 10.3 fL Normal 6.2-12.0 [facility] Comment on above: Performed By: #### L 500.4050, L100.0100 ####[facility] [address] [place], [address] Platelets (Bld) [#/Vol] 163 10*3/uL Normal 150-450 [facility] Comment on above: Performed By: #### L 500.4050, L100.0100 ####[facility] [address] [place], [address] RBC (Bld) [#/Vol] 3.99 10*6/uL Low 4.6-6.2 [facility] Comment on above: Performed By: #### L 500.4050, L100.0100 ####[facility] [address] [place], [address] RDW SD 47.8 fl High 35.1-43.9 [facility] Comment on above: Performed By: #### L 500.4050, L100.0100 ####[facility] [address] [place], [address] WBC (Bld) [#/Vol] 8.1 10*3/uL Normal 4.4-11.0 [facility] Comment on above: Performed By: #### L 500.4050, L100.0100 ####[facility] [address] [place], [address] Comprehensive Metabolic Prof [facility] 01-24-2024 Albumin [Mass/Vol] 2.9 g/dL Low 3.2-5.0 [facility] Comment on above: Performed By: #### L 500.4050, L100.0100 ####[facility] [address] [place], [address] Albumin/Globulin [Mass ratio] 0.7 {ratio} Low 0.9-2.4 [facility] Comment on above: Performed By: #### L 500.4050, L100.0100 ####[facility] [address] [place], [address] ALK P 174 U/L High 45-117 [facility] Comment on above: Performed By: #### L 500.4050, L100.0100 ####[facility] [address] [place], [address] ALT [Catalytic activity/Vol] 28 U/L Normal 16-61 [facility] Comment on above: Performed By: #### L 500.4050, L100.0100 ####[facility] [address] [place], [address] AST [Catalytic activity/Vol] 46 U/L High 15-37 [facility] Comment on above: Performed By: #### L 500.4050, L100.0100 ####[facility] [address] [place], [address] Bilirubin [Mass/Vol] 0.80 mg/dL Normal 0.20-1.00 [facility] Comment on above: Result Comment: For patients on eltrombopag therapy, use of Dimension Quinlan TBIL is not recommended. Performed By: #### L 500.4050, L100.0100 ####[facility] [address] [place], [address] BUN/CRE 15.1 RATIO Normal 10-20 [facility] Comment on above: Performed By: #### L 500.4050, L100.0100 ####[facility] [address] [place], [address] CA,Total 8.6 mg/dL Normal 8.5-10.1 [facility] Comment on above: Performed By: #### L 500.4050, L100.0100 ####[facility] [address] [place], [address] Chloride [Moles/Vol] 105 mmol/L Normal 98-107 [facility] Comment on above: Performed By: #### L 500.4050, L100.0100 ####[facility] [address] [place], [address] CO2 [Moles/Vol] 25.0 mmol/L Normal 21.0-32.0 [facility] Comment on above: Performed By: #### L 500.4050, L100.0100 ####[facility] [address] [place], [address] Creatinine [Mass/Vol] 0.93 mg/dL Normal 0.70-1.[address] [facility] Comment on above: Result Comment: The validity of the calculated GFR GFRAA in patients over70 years has not been determined. Clinical correlation isessential. Performed By: #### L 500.4050, L100.0100 ####[facility] [address] [place], [address] ECRCL 81.63 ml/min Normal [facility] Comment on above: Performed By: #### L 500.4050, L100.0100 ####[facility] [address] [place], [address] EST GFR - AA 101 mL/min Normal >60 [facility] Comment on above: Result Comment: Afri can Trinidadian GFR Calc Performed By: #### L 500.4050, L100.0100 ####[facility] [address] [place], [address] GAP 6 Normal 5-15 [facility] Comment on above: Performed By: #### L 500.4050, L100.0100 ####[facility] [address] [place], [address] GFR/1.73 sq M.predicted among non-blacks MDRD (S/P/Bld) [Vol rate/Area] 84 mL/min/{1.73_m2} Normal >60 [facility] Comment on above: Result Comment: Non- GFR Calc Performed By: #### L 500.4050, L100.0100 ####[facility] [address] [place], [address] Globulin (S) [Mass/Vol] 4.2 g/dL Normal 2.2-4.2 [facility] Comment on above: Performed By: #### L 500.4050, L100.0100 ####[facility] [address] [place], [address] Glucose [Mass/Vol] 105 mg/dL Normal 74-106 [facility] Comment on above: Result Comment: Fast ing Glucose result from 100 to 125 mg/dLsuggests IMPAIRED HOMEOSTASIS per A.D.A. criteria. Performed By: #### L 500.4050, L100.0100 ####[facility] [address] [place], [address] Potassium [Moles/Vol] 3.9 mmol/L Normal 3.5-5.[address] [facility] Comment on above: Performed By: #### L 500.4050, L100.0100 ####[facility] [address] [place], [address] Sodium [Moles/Vol] 136 mmol/L Normal 136-145 [facility] Comment on above: Performed By: #### L 500.4050, L100.0100 ####[facility] [address] [place], [address] T PROT 7.1 g/dL Normal 6.4-8.2 [facility] Comment on above: Performed By: #### L 500.4050, L100.0100 ####[facility] [address] [place], [address] Urea nitrogen [Mass/Vol] 14 mg/dL Normal 7-18 [facility] Comment on above: Performed By: #### L 500.4050, L100.0100 ####[facility] [address] [place], [address] Echo Transesophageal (FER)on 01-24-2024 Echo Transesophageal (FER) Normal [facility] Partial Thromboplast Timeon 01-24-2024 aPTT Coag (Bld) [Time] 84.9 s High 24.1-36.2 [facility] Comment on above: Performed By: #### L 300.4310 ####[facility] [address] [place], [address] aPTT Coag (Bld) [Time] 67.3 s High 24.1-36.2 [facility] Comment on above: Performed By: #### L 300.4310 ####[facility] [address] [place], [address] aPTT Coag (Bld) [Time] 90.9 s Invalid Interpretation Code 24.1-36.2 [facility] Comment on above: Result Comment: CRIT ICAL VALUE VERIFIED. CALLED TO [id number]/22/24 0619 Mason Reyes.RESULTS READ BACK BY SAME. Performed By: #### L 300.4310, L300.3900 ####[facility] [address] [place], [address] Prothrombin Time w/INRon INR Coag (PPP) [Relative time] 2.8 {INR} Normal [facility] Comment on above: Performed By: #### L 300.4310, L300.3900 ####[facility] [address] [place], [address] PT Coag (PPP) [Time] 29.0 s High 11.7-14.9 [facility] Comment on above: Performed By: #### L 300.4310, L300.3900 ####[facility] [address] [place], [address] INR Normal [facility] Comment on above: Result Comment: Stacy eagle via OM: Ordered Performed By: #### L 300.3900 ####[facility] [address] [place], [address] PROTIME Normal 11.7-14.9 [facility] Comment on above: Result Comment: Stacy eagle via OM: Ordered Performed By: #### L 300.3900 ####[facility] [address] [place], [address] CBC W/Diff, Automatedon 01-03 Absolute Lymph 0.60 X10 3/uL Low 0.83-4.51 [facility] Comment on above: Performed By: #### L 100.0100, L500.4050 ####[facility] [address] [place], [address] Absolute Neut 7.1 X10 3/uL Normal 2.0-7.7 [facility] Comment on above: Performed By: #### L 100.0100, L500.4050 ####[facility] [address] [place], [address] Basophils/100 WBC (Bld) 0.6 % Normal 0-1 [facility] Comment on above: Performed By: #### L 100.0100, L500.4050 ####[facility] [address] [place], [address] Eosinophils/100 WBC (Bld) 3.5 % Normal 0-5 [facility] Comment on above: Performed By: #### L 100.0100, L500.4050 ####[facility] [address] [place], [address] Erythrocyte distribution width (RBC) [Ratio] 14.1 % Normal 11.6-14.6 [facility] Comment on above: Performed By: #### L 100.0100, L500.4050 ####[facility] [address] [place], [address] Hematocrit (Bld) [Volume fraction] 37.1 % Low 40-54 [facility] Comment on above: Performed By: #### L 100.0100, L500.4050 ####[facility] [address] [place], [address] Hemoglobin (Bld) [Mass/Vol] 12.1 g/dL Low 13.0-16.5 [facility] Comment on above: Performed By: #### L 100.0100, L500.4050 ####[facility] [address] [place], [address] IG% 0.600 Normal 0.0-0.9 [facility] Comment on above: Result Comment: IG% - Immature Granulocytes (promyelocytes, myelocytes andmetamyelocytes) > 1% indicates that a LEFT SHIFT is Present. Performed By: #### L 100.0100, L500.4050 ####[facility] [address] [place], [address] Lymphocytes/100 WBC (Bld) 6.5 % Low 19-41 [facility] Comment on above: Performed By: #### L 100.0100, L500.4050 ####[facility] [address] [place], [address] MCH (RBC) [Entitic mass] 30.1 pg Normal 27.0-32.0 [facility] Comment on above: Performed By: #### L 100.0100, L500.4050 ####[facility] [address] [place], [address] MCHC (RBC) [Mass/Vol] 32.6 g/dL Normal 32-[address] [facility] Comment on above: Performed By: #### L 100.0100, L500.4050 ####[facility] [address] [place], [address] MCV (RBC) [Entitic vol] 92.3 fL Normal 80-94 [facility] Comment on above: Performed By: #### L 100.0100, L500.4050 ####[facility] [address] [place], [address] Monocytes/100 WBC (Bld) 12.2 % High 0-10 [facility] Comment on above: Performed By: #### L 100.0100, L500.4050 ####[facility] [address] [place], [address] Neutrophils/100 WBC (Bld) 76.6 % High 47-70 [facility] Comment on above: Performed By: #### L 100.0100, L500.4050 ####[facility] [address] [place], [address] Nucleated RBC (Bld) [#/Vol] 0 10*3/uL Normal 0-5 [facility] Comment on above: Performed By: #### L 100.0100, L500.4050 ####[facility] [address] [place], [address] Platelet mean volume (Bld) [Entitic vol] 10.0 fL Normal 6.2-12.0 [facility] Comment on above: Performed By: #### L 100.0100, L500.4050 ####[facility] [address] [place], [address] Platelets (Bld) [#/Vol] 163 10*3/uL Normal 150-450 [facility] Comment on above: Performed By: #### L 100.0100, L500.4050 ####[facility] [address] [place], [address] RBC (Bld) [#/Vol] 4.02 10*6/uL Low 4.6-6.2 [facility] Comment on above: Performed By: #### L 100.0100, L500.4050 ####[facility] [address] [place], [address] RDW SD 47.9 fl High 35.1-43.9 [facility] Comment on above: Performed By: #### L 100.0100, L500.4050 ####[facility] [address] [place], [address] WBC (Bld) [#/Vol] 9.3 10*3/uL Normal 4.4-11.0 [facility] Comment on above: Performed By: #### L 100.0100, L500.4050 ####[facility] [address] [place], [address] Comprehensive Metabolic Prof annette 01-23-2024 Albumin [Mass/Vol] 3.0 g/dL Low 3.2-5.0 [facility] Comment on above: Performed By: #### L 100.0100, L500.4050 ####[facility] [address] [place], [address] Albumin/Globulin [Mass ratio] 0.7 {ratio} Low 0.9-2.4 [facility] Comment on above: Performed By: #### L 100.0100, L500.4050 ####[facility] [address] [place], [address] ALK P 169 U/L High 45-117 [facility] Comment on above: Performed By: #### L 100.0100, L500.4050 ####[facility] [address] [place], [address] ALT [Catalytic activity/Vol] 32 U/L Normal 16-61 [facility] Comment on above: Performed By: #### L 100.0100, L500.4050 ####[facility] [address] [place], [address] AST [Catalytic activity/Vol] 43 U/L High 15-37 [facility] Comment on above: Performed By: #### L 100.0100, L500.4050 ####[facility] [address] [place], [address] Bilirubin [Mass/Vol] 0.90 mg/dL Normal 0.20-1.00 [facility] Comment on above: Result Comment: For patients on eltrombopag therapy, use of Dimension Quinlan TBIL is not recommended. Performed By: #### L 100.0100, L500.4050 ####[facility] [address] [place], [address] BUN/CRE 15.4 RATIO Normal 10-20 [facility] Comment on above: Performed By: #### L 100.0100, L500.4050 ####[facility] [address] [place], [address] CA,Total 8.7 mg/dL Normal 8.5-10.1 [facility] Comment on above: Performed By: #### L 100.0100, L500.4050 ####[facility] [address] [place], [address] Chloride [Moles/Vol] 104 mmol/L Normal 98-107 [facility] Comment on above: Performed By: #### L 100.0100, L500.4050 ####[facility] [address] [place], [address] CO2 [Moles/Vol] 25.0 mmol/L Normal 21.0-32.0 [facility] Comment on above: Performed By: #### L 100.0100, L500.4050 ####[facility] [address] [place], [address] Creatinine [Mass/Vol] 1.04 mg/dL Normal 0.70-1.[address] [facility] Comment on above: Result Comment: The validity of the calculated GFR GFRAA in patients over70 years has not been determined. Clinical correlation isessential. Performed By: #### L 100.0100, L500.4050 ####[facility] [address] [place], [address] ECRCL 72.60 ml/min Normal [facility] Comment on above: Performed By: #### L 100.0100, L500.4050 ####[facility] [address] [place], [address] EST GFR - AA 89 mL/min Normal >60 [facility] Comment on above: Result Comment: Afri can Trinidadian GFR Calc Performed By: #### L 100.0100, L500.4050 ####[facility] [address] [place], [address] GAP 5 Normal 5-15 [facility] Comment on above: Performed By: #### L 100.0100, L500.4050 ####[facility] [address] [place], [address] GFR/1.73 sq M.predicted among non-blacks MDRD (S/P/Bld) [Vol rate/Area] 73 mL/min/{1.73_m2} Normal >60 [facility] Comment on above: Result Comment: Non- GFR Calc Performed By: #### L 100.0100, L500.4050 ####[facility] [address] [place], [address] Globulin (S) [Mass/Vol] 4.2 g/dL Normal 2.2-4.2 [facility] Comment on above: Performed By: #### L 100.0100, L500.4050 ####[facility] [address] [place], [address] Glucose [Mass/Vol] 113 mg/dL High 74-106 [facility] Comment on above: Result Comment: Fast ing Glucose result from 100 to 125 mg/dLsuggests IMPAIRED HOMEOSTASIS per A.D.A. criteria. Performed By: #### L 100.0100, L500.4050 ####[facility] [address] [place], [address] Potassium [Moles/Vol] 3.9 mmol/L Normal 3.5-5.[address] [facility] Comment on above: Performed By: #### L 100.0100, L500.4050 ####[facility] [address] [place], [address] Sodium [Moles/Vol] 134 mmol/L Low 136-145 [facility] Comment on above: Performed By: #### L 100.0100, L500.4050 ####[facility] [address] [place], [address] T PROT 7.2 g/dL Normal 6.4-8.2 [facility] Comment on above: Performed By: #### L 100.0100, L500.4050 ####[facility] [address] [place], [address] Urea nitrogen [Mass/Vol] 16 mg/dL Normal 7-18 [facility] Comment on above: Performed By: #### L 100.0100, L500.4050 ####[facility] [address] 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 CALLED TO A [id number] Shira Yang.RESULTS READ BACK BY SAME. Performed By: #### L 300.4310 ####[facility] [address] [place], [address] aPTT Coag (Bld) [Time] 43.8 s High 24.1-36.2 [facility] Comment on above: Performed By: #### L 300.4310 ####[facility] [address] [place], [address] Prothrombin Time w/INRon INR Coag (PPP) [Relative time] 2.4 {INR} Normal [facility] Comment on above: Performed By: #### L 300.3900 ####[facility] [address] [place], [address] PT Coag (PPP) [Time] 26.0 s High 11.7-14.9 [facility] Comment on above: Performed By: #### L 300.3900 ####[facility] [address] [place], [address] Vancomycin, Trough Levelon 0 - VANCO, TROUGH 19.2 ug/mL High 5.0-15.0 [facility] Comment on above: Order Comment: Comme nts: Trough to be drawn 30 mins prior to scheduled dose Result Comment: VANC OMYCIN STANDARED DRUG THERAPY TROUGH LEVEL: 5.0 - 15.0 mg/LVANCOMYCIN HIGH INTENSITY THERAPY TROUGH LEVEL: 15.0 - 20.0 mg/LHigh Intensity therapy recommended for serious lifethreatening infections include:- Wcwsqevuaf-Mvctxvhkktqg-Expxkcsjz (Ventilator/Healtcare Associated)-SepsisPLEASE CONTACT PHARMACY SERVICES (#6633) FOR INTERPRETATIONOF RESULTS. Performed By: #### L 501.8820 ####[facility] [address] [place], [address] Basic Metabolic Profile (BMP )on 01-22-2024 BUN/CRE 17.3 RATIO Normal - [facility] Comment on above: Performed By: #### L 500.2500, L300.3900, L100.0100 ####[facility] [address] [place], [address] CA,Total 8.7 mg/dL Normal 8.5-10.1 [facility] Comment on above: Performed By: #### L 500.2500, L300.3900, L100.0100 ####[facility] [address] [place], [address] Chloride [Moles/Vol] 104 mmol/L Normal 98-107 [facility] Comment on above: Performed By: #### L 500.2500, L300.3900, L100.0100 ####[facility] [address] [place], [address] CO2 [Moles/Vol] 22.0 mmol/L Normal 21.0-32.0 [facility] Comment on above: Performed By: #### L 500.2500, L300.3900, L100.0100 ####[facility] [address] [place], [address] Creatinine [Mass/Vol] 1.10 mg/dL Normal 0.70-1.[address] [facility] Comment on above: Result Comment: The validity of the calculated GFR GFRAA in patients over70 years has not been determined. Clinical correlation isessential. Performed By: #### L 500.2500, L300.3900, L100.0100 ####[facility] [address] [place], [address] ECRCL 68.42 ml/min Normal [facility] Comment on above: Performed By: #### L 500.2500, L300.3900, L100.0100 ####[facility] [address] [place], [address] EST GFR - AA 83 mL/min Normal >60 [facility] Comment on above: Result Comment: Afri can Trinidadian GFR Calc Performed By: #### L 500.2500, L300.3900, L100.0100 ####[facility] [address] [place], [address] GAP 7 Normal 5-15 [facility] Comment on above: Performed By: #### L 500.2500, L300.3900, L100.0100 ####[facility] [address] [place], [address] GFR/1.73 sq M.predicted among non-blacks MDRD (S/P/Bld) [Vol rate/Area] 69 mL/min/{1.73_m2} Normal >60 [facility] Comment on above: Result Comment: Non- GFR Calc Performed By: #### L 500.2500, L300.3900, L100.0100 ####[facility] [address] [place], [address] Glucose [Mass/Vol] 102 mg/dL Normal 74-106 [facility] Comment on above: Result Comment: Fast ing Glucose result from 100 to 125 mg/dLsuggests IMPAIRED HOMEOSTASIS per A.D.A. criteria. Performed By: #### L 500.2500, L300.3900, L100.0100 ####[facility] [address] [place], [address] Potassium [Moles/Vol] 4.2 mmol/L Normal 3.5-5.[address] [facility] Comment on above: Performed By: #### L 500.2500, L300.3900, L100.0100 ####[facility] [address] [place], [address] Sodium [Moles/Vol] 133 mmol/L Low 136-145 [facility] Comment on above: Performed By: #### L 500.2500, L300.3900, L100.0100 ####[facility] [address] [place], [address] Urea nitrogen [Mass/Vol] 19 mg/dL High 7-18 [facility] Comment on above: Performed By: #### L 500.2500, L300.3900, L100.0100 ####[facility] [address] [place], [address] CBC W/Diff, Automatedon 01-03 PATH REV May foll Normal [facility] Comment on above: Performed By: #### L 500.2500, L300.3900, L100.0100 ####[facility] [address] [place], [address] Chest 1 View (Portable)on Chest 1 View (Portable) Normal [facility] Consultation - Infectious Dx on 01-22-2024 Consultation - Infectious Dx Normal [facility] Culture, Blood (WB)on 2023 CUB Normal [facility] Comment on above: Performed By: #### M 200.1000, M100.636 ####[facility] [address] [place], [address] Gram Stainon 01-22-2024 GS Not obtained in 1 hr , induce w/nebulized 0.9% NaCL Acceptable Specimen? Yes (<25 Epithelial cells per/lpf) Gram Stain 3+ White Blood Cells No organisms seen Normal [facility] Comment on above: Performed By: #### M 100.2400, M100.2000 ####[facility] [address] [place], [address] LDHon 01-22-2024 LDH 349 U/L High 87-241 [facility] Comment on above: Performed By: #### L 504.2610, L500.3400 ####[facility] [address] [place], [address] Legionella Antigen Urineon 0 01-22-2024 LEGU Normal [facility] Comment on above: Performed By: #### M 300.4500, M300.4600 ####[facility] [address] [place], [address] Liver Profileon 01-22-2024 Albumin [Mass/Vol] 1.7 g/dL Low 3.2-5.0 [facility] Comment on above: Performed By: #### L 504.2610, L500.3400 ####[facility] [address] [place], [address] ALK P 186 U/L High 45-117 [facility] Comment on above: Performed By: #### L 504.2610, L500.3400 ####[facility] [address] [place], [address] ALT [Catalytic activity/Vol] 41 U/L Normal 16-61 [facility] Comment on above: Performed By: #### L 504.2610, L500.3400 ####[facility] [address] [place], [address] AST [Catalytic activity/Vol] 65 U/L High 15-37 [facility] Comment on above: Performed By: #### L 504.2610, L500.3400 ####[facility] [address] [place], [address] Bilirubin [Mass/Vol] 1.20 mg/dL High 0.20-1.00 [facility] Comment on above: Result Comment: For patients on eltrombopag therapy, use of Dimension Quinlan TBIL is not recommended. Performed By: #### L 504.2610, L500.3400 ####[facility] [address] [place], [address] Bilirubin.direct [Mass/Vol] 0.59 mg/dL High 0.00-0.30 [facility] Comment on above: Performed By: #### L 504.2610, L500.3400 ####[facility] [address] [place], [address] Globulin (S) [Mass/Vol] 5.1 g/dL High 2.2-4.2 [facility] Comment on above: Performed By: #### L 504.2610, L500.3400 ####[facility] [address] [place], [address] T PROT 6.8 g/dL Normal 6.4-8.2 [facility] Comment on above: Performed By: #### L 504.2610, L500.3400 ####[facility] [address] [place], [address] M R Staph Aureus DNA by PCRo n 01-22-2024 MRSA DNA ASSAY Negative Normal Negative [facility] Comment on above: Performed By: #### L 8200.1000 ####[facility] [address] [place], [address] Prothrombin Time w/INRon INR Coag (PPP) [Relative time] 2.5 {INR} Normal [facility] Comment on above: Performed By: #### L 500.2500, L300.3900, L100.0100 ####[facility] [address] [place], [address] PT Coag (PPP) [Time] 26.6 s High 11.7-14.9 [facility] Comment on above: Performed By: #### L 500.2500, L300.3900, L100.0100 ####[facility] [address] [place], [address] Strep pneumoniae Antig(UR,CS F)on 01-22-2024 STPAG Normal [facility] Comment on above: Performed By: #### M 300.4500, M300.4600 ####[facility] [address] [place], [address] 12 Lead EKGon 01-21-2024 12 Lead EKG Normal [facility] 12 Lead EKG Normal [facility] Basic Metabolic Profile (BMP )on 01-21-2024 BUN/CRE 18.3 RATIO Normal - [facility] Comment on above: Order Comment: 'TROP ' Serial specimen #1, #2 or #3: 1 Performed By: #### L 500.2500, L501.4020, L300.3900, L100.0100 ####[facility] [address] [place], [address] CA,Total 8.8 mg/dL Normal 8.5-10.1 [facility] Comment on above: Order Comment: 'TROP ' Serial specimen #1, #2 or #3: 1 Performed By: #### L 500.2500, L501.4020, L300.3900, L100.0100 ####[facility] [address] [place], [address] Chloride [Moles/Vol] 103 mmol/L Normal 98-107 [facility] Comment on above: Order Comment: 'TROP ' Serial specimen #1, #2 or #3: 1 Performed By: #### L 500.2500, L501.4020, L300.3900, L100.0100 ####[facility] [address] [place], [address] CO2 [Moles/Vol] 26.0 mmol/L Normal 21.0-32.0 [facility] Comment on above: Order Comment: 'TROP ' Serial specimen #1, #2 or #3: 1 Performed By: #### L 500.2500, L501.4020, L300.3900, L100.0100 ####[facility] [address] [place], [address] Creatinine [Mass/Vol] 1.04 mg/dL Normal 0.70-1.[address] [facility] Comment on above: Order Comment: 'TROP ' Serial specimen #1, #2 or #3: 1 Result Comment: The validity of the calculated GFR GFRAA in patients over70 years has not been determined. Clinical correlation isessential. Performed By: #### L 500.2500, L501.4020, L300.3900, L100.0100 ####[facility] [address] [place], [address] ECRCL 73.23 ml/min Normal [facility] Comment on above: Order Comment: 'TROP ' Serial specimen #1, #2 or #3: 1 Performed By: #### L 500.2500, L501.4020, L300.3900, L100.0100 ####[facility] [address] [place], [address] EST GFR - AA 89 mL/min Normal >60 [facility] Comment on above: Order Comment: 'TROP ' Serial specimen #1, #2 or #3: 1 Result Comment: Afri can Trinidadian GFR Calc Performed By: #### L 500.2500, L501.4020, L300.3900, L100.0100 ####[facility] [address] [place], [address] GAP 4 Low 5-15 [facility] Comment on above: Order Comment: 'TROP ' Serial specimen #1, #2 or #3: 1 Performed By: #### L 500.2500, L501.4020, L300.3900, L100.0100 ####[facility] [address] [place], [address] GFR/1.73 sq M.predicted among non-blacks MDRD (S/P/Bld) [Vol rate/Area] 73 mL/min/{1.73_m2} Normal >60 [facility] Comment on above: Order Comment: 'TROP ' Serial specimen #1, #2 or #3: 1 Result Comment: Non- GFR Calc Performed By: #### L 500.2500, L501.4020, L300.3900, L100.0100 ####[facility] [address] [place], [address] Glucose [Mass/Vol] 105 mg/dL Normal 74-106 [facility] Comment on above: Order Comment: 'TROP ' Serial specimen #1, #2 or #3: 1 Result Comment: Fast ing Glucose result from 100 to 125 mg/dLsuggests IMPAIRED HOMEOSTASIS per A.D.A. criteria. Performed By: #### L 500.2500, L501.4020, L300.3900, L100.0100 ####[facility] [address] [place], [address] Potassium [Moles/Vol] 4.4 mmol/L Normal 3.5-5.[address] [facility] Comment on above: Order Comment: 'TROP ' Serial specimen #1, #2 or #3: 1 Performed By: #### L 500.2500, L501.4020, L300.3900, L100.0100 ####[facility] [address] [place], [address] Sodium [Moles/Vol] 133 mmol/L Low 136-145 [facility] Comment on above: Order Comment: 'TROP ' Serial specimen #1, #2 or #3: 1 Performed By: #### L 500.2500, L501.4020, L300.3900, L100.0100 ####[facility] [address] [place], [address] Urea nitrogen [Mass/Vol] 19 mg/dL High 7-18 [facility] Comment on above: Order Comment: 'TROP ' Serial specimen #1, #2 or #3: 1 Performed By: #### L 500.2500, L501.4020, L300.3900, L100.0100 ####[facility] [address] [place], [address] CBC W/Diff, Automatedon 01-02 SMEAR COMMENT SCANNED Normal [facility] Comment on above: Result Comment: MONO CYTOSIS NOTED Performed By: #### L 500.2500, L501.4020, L300.3900, L100.0100 ####[facility] [address] [place], [address] PATH REV Reviewed Normal [facility] Comment on above: Result Comment: Neut rophilic leukocytosis.Clinical correlation necessary.Tyrell Jimenez M.D. 01/21/24 AMENDED REPORT 01/21/24 1032 PATH REV previously reported as: Jayla page Performed By: #### L 100.0100, L500.2500, L300.4310, L300.3900, L503.6620, L501.4020 ####[facility] [address] [place], [address] Chest 1 View (Portable)on Chest 1 View (Portable) Normal [facility] Echo Completeon 01-21-2024 Echo Complete Normal [facility] Emergency Department Summary on 01-21-2024 Emergency Department Summary Normal [facility] H AND P Exam - Hospitaliston 01-21-2024 H&P Exam - Hospitalist Normal [facility] L501.4020on 01-21-2024 TROPONIN-I HS 7 pg/mL Normal 3.0-78.0 [facility] Comment on above: Order Comment: 'TROP ' Serial specimen #1, #2 or #3: 1 Result Comment: Plea se Note: New Test Units and Gender Specific Reference Ranges. For more information see Policy Stat Procedure Quinlan High Sensitivity Troponin (TNIH) and attachments. Performed By: #### L 500.2500, L501.4020, L300.3900, L100.0100 ####[facility] [address] [place], [address] Prothrombin Time w/INRon INR Coag (PPP) [Relative time] 2.1 {INR} Normal [facility] Comment on above: Performed By: #### L 500.2500, L501.4020, L300.3900, L100.0100 ####[facility] [address] [place], [address] PT Coag (PPP) [Time] 23.6 s High 11.7-14.9 [facility] Comment on above: Performed By: #### L 500.2500, L501.4020, L300.3900, L100.0100 ####[facility] [address] [place], [address] BC GPC IDon 01-20-2024 BC GPC ID Normal [facility] Comment on above: Performed By: #### M 200.1000, M100.636 ####[facility] [address] [place], [address] 12 Lead EKGon 01-19-2024 12 Lead EKG Normal [facility] BNP,B-Type NATRIURETIC PEPTI Rosa 01-19-2024 Natriuretic peptide B (Bld) [Mass/Vol] 261.0 pg/mL High 0-100 [facility] Comment on above: Performed By: #### L 100.0100, L500.2500, L300.4310, L300.3900, L503.6620, L501.4020 ####[facility] [address] [place], [address] Basic Metabolic Profile (BMP )on 01-19-2024 BUN/CRE 18.7 RATIO Normal 10-20 [facility] Comment on above: Order Comment: 'TROP ' Serial specimen #1, #2 or #3: 1 Performed By: #### L 100.0100, L500.2500, L300.4310, L300.3900, L503.6620, L501.4020 ####[facility] [address] [place], [address] CA,Total 8.8 mg/dL Normal 8.5-10.1 [facility] Comment on above: Order Comment: 'TROP ' Serial specimen #1, #2 or #3: 1 Performed By: #### L 100.0100, L500.2500, L300.4310, L300.3900, L503.6620, L501.4020 ####[facility] [address] [place], [address] Chloride [Moles/Vol] 103 mmol/L Normal 98-107 [facility] Comment on above: Order Comment: 'TROP ' Serial specimen #1, #2 or #3: 1 Performed By: #### L 100.0100, L500.2500, L300.4310, L300.3900, L503.6620, L501.4020 ####[facility] [address] [place], [address] CO2 [Moles/Vol] 26.0 mmol/L Normal 21.0-32.0 [facility] Comment on above: Order Comment: 'TROP ' Serial specimen #1, #2 or #3: 1 Performed By: #### L 100.0100, L500.2500, L300.4310, L300.3900, L503.6620, L501.4020 ####[facility] [address] [place], [address] Creatinine [Mass/Vol] 1.07 mg/dL Normal 0.70-1.[address] [facility] Comment on above: Order Comment: 'TROP ' Serial specimen #1, #2 or #3: 1 Result Comment: The validity of the calculated GFR GFRAA in patients over70 years has not been determined. Clinical correlation isessential. Performed By: #### L 100.0100, L500.2500, L300.4310, L300.3900, L503.6620, L501.4020 ####[facility] [address] [place], [address] ECRCL 70.63 ml/min Normal [facility] Comment on above: Order Comment: 'TROP ' Serial specimen #1, #2 or #3: 1 Performed By: #### L 100.0100, L500.2500, L300.4310, L300.3900, L503.6620, L501.4020 ####[facility] [address] [place], [address] EST GFR - AA 86 mL/min Normal >60 [facility] Comment on above: Order Comment: 'TROP ' Serial specimen #1, #2 or #3: 1 Result Comment: Afri can Trinidadian GFR Calc Performed By: #### L 100.0100, L500.2500, L300.4310, L300.3900, L503.6620, L501.4020 ####[facility] [address] [place], [address] GAP 6 Normal 5-15 [facility] Comment on above: Order Comment: 'TROP ' Serial specimen #1, #2 or #3: 1 Performed By: #### L 100.0100, L500.2500, L300.4310, L300.3900, L503.6620, L501.4020 ####[facility] [address] [place], [address] GFR/1.73 sq M.predicted among non-blacks MDRD (S/P/Bld) [Vol rate/Area] 71 mL/min/{1.73_m2} Normal >60 [facility] Comment on above: Order Comment: 'TROP ' Serial specimen #1, #2 or #3: 1 Result Comment: Non- GFR Calc Performed By: #### L 100.0100, L500.2500, L300.4310, L300.3900, L503.6620, L501.4020 ####[facility] [address] [place], [address] Glucose [Mass/Vol] 126 mg/dL High 74-106 [facility] Comment on above: Order Comment: 'TROP ' Serial specimen #1, #2 or #3: 1 Result Comment: Fast ing Glucose result greater than or equal to 126 mg/dLsuggests DIABETES MELLITUS per A.D.A. criteria. Performed By: #### L 100.0100, L500.2500, L300.4310, L300.3900, L503.6620, L501.4020 ####[facility] [address] [place], [address] Potassium [Moles/Vol] 4.0 mmol/L Normal 3.5-5.[address] [facility] Comment on above: Order Comment: 'TROP ' Serial specimen #1, #2 or #3: 1 Performed By: #### L 100.0100, L500.2500, L300.4310, L300.3900, L503.6620, L501.4020 ####[facility] [address] [place], [address] Sodium [Moles/Vol] 135 mmol/L Low 136-145 [facility] Comment on above: Order Comment: 'TROP ' Serial specimen #1, #2 or #3: 1 Performed By: #### L 100.0100, L500.2500, L300.4310, L300.3900, L503.6620, L501.4020 ####[facility] [address] [place], [address] Urea nitrogen [Mass/Vol] 20 mg/dL High 7-18 [facility] Comment on above: Order Comment: 'TROP ' Serial specimen #1, #2 or #3: 1 Performed By: #### L 100.0100, L500.2500, L300.4310, L300.3900, L503.6620, L501.4020 ####[facility] [address] [place], [address] Chest PA and Lateralon 01-18 Chest PA and Lateral Normal [facility] Emergency Department Summary on 01-19-2024 Emergency Department Summary Normal [facility] L501.4020on 01-19-2024 TROPONIN-I HS 15 pg/mL Normal 3.0-78.0 [facility] Comment on above: Order Comment: 'TROP ' Serial specimen #1, #2 or #3: 1 Result Comment: Kiran saunders Note: New Test Units and Gender Specific Reference Ranges. For more information see Policy Stat Procedure [place] High Sensitivity Troponin (TNIH) and attachments. Performed By: #### L 100.0100, L500.2500, L300.4310, L300.3900, L503.6620, L501.4020 ####[facility] [address] [place], [address] Lactic Acidon 01-19-2024 Lactate [Moles/Vol] 1.4 mmol/L Normal 0.4-1.9 [facility] Comment on above: Order Comment: Y Performed By: #### L 503.6005 ####[facility] [address] [place], [address] M100.678on 01-19-2024 M100.678 Pending SARS-CoV-2 (COVID 19) Negative INFLUENZA A Negative INFLUENZA B Negative RSV PCR Negative Normal [facility] Comment on above: Performed By: #### M 100.678 ####[facility] [address] [place], [address] Partial Thromboplast Timeon 01-19-2024 aPTT Coag (Bld) [Time] 48.5 s High 24.1-36.2 [facility] Comment on above: Performed By: #### L 100.0100, L500.2500, L300.4310, L300.3900, L503.6620, L501.4020 ####[facility] [address] [place], [address] Prothrombin Time w/INRon INR Coag (PPP) [Relative time] 2.5 {INR} Normal [facility] Comment on above: Performed By: #### L 100.0100, L500.2500, L300.4310, L300.3900, L503.6620, L501.4020 ####[facility] [address] [place], [address] PT Coag (PPP) [Time] 26.9 s High 11.7-14.9 [facility] Comment on above: Performed By: #### L 100.0100, L500.2500, L300.4310, L300.3900, L503.6620, L501.4020 ####[facility] [address] [place], [address] Urinalysis, Completeon 01-18 BACTERIA RARE Normal None Seen [facility] Comment on above: Order Comment: COLOR OF URINE MAY AFFECT DIPSTICK RESULTS.CLEAN CATCH Performed By: #### L 400.0001 ####[facility] [address] [place], [address] EPI,SQUAMOUS 0-5 SEEN Normal 0-5 [facility] Comment on above: Order Comment: COLOR OF URINE MAY AFFECT DIPSTICK RESULTS.CLEAN CATCH Performed By: #### L 400.0001 ####[facility] [address] [place], [address] RBC 0-5 SEEN Normal 0-5 [facility] Comment on above: Order Comment: COLOR OF URINE MAY AFFECT DIPSTICK RESULTS.CLEAN CATCH Performed By: #### L 400.0001 ####[facility] [address] [place], [address] WBC 5-10 SEEN Normal 0-5 [facility] Comment on above: Order Comment: COLOR OF URINE MAY AFFECT DIPSTICK RESULTS.CLEAN CATCH Performed By: #### L 400.0001 ####[facility] [address] [place], [address] Mucus Ql (Urine sed) 0 SEEN Normal [facility] Comment on above: Order Comment: COLOR OF URINE MAY AFFECT DIPSTICK RESULTS.CLEAN CATCH Performed By: #### L 400.0001 ####[facility] [address] [place], [address] Chest PA and Lateralon 01-17 Chest PA and Lateral Normal [facility] Urgent Care Visit Reporton 0 01-18-2024 Urgent Care Visit Report Normal [facility] ECHOCARDIOGRAM TRANSESOPHAGE AL (FER)on 08-10-2023 ECHOCARDIOGRAM TRANSESOPHAGEAL (FER) Test aborted as patient was unable to be properly sedated. Was given 7mg of Versed (unable to get Fentanyl given past adverse reaction) and still not sedated and very uncomfortable. Recommend rescheduling with general anesthesia. Table formatting from the original result was not included. Images from the original result were not included. Facility [facility] Patient Information Patient Name Markus Nava Legal [...] - Reading 08/10/2023 Radha Gunter MD [facility], [employer] 08/10/2023 Vitals Height Weight BSA (Calculated - sq m) BP Pulse 127/80 76 Performing Staff Keli Gamboa RN Study Details The risks and alternatives of the procedure and conscious sedation were explained to the patient/family member and/or their power of business attorney. Informed consent was obtained. All staff members involved in the procedure completed a timeout prior to the start of the procedure verifying correct patient identity and correct procedure to be performed. A transesophageal echocardiography study (including agitated saline contrast study) was performed. Total time physician provided wapq-we-megz service beginning with the administration of sedation [...] Date/Status Modality Department 08/10/2023 Arrived FER TESTING, [facility] ECHOCARDIOGRAPHY ROSS Begin Exam End Exam [...] - Dose: 1 spray ; Route: Oral Dean Veloz MD 12:05 Medication Given midazolam (VERSED) [...] FER Is (more content not included)... Normal [facility] Test aborted as patient was unable to [...] the patient/family member and/or their power of business attorney. Informed consent was obtained. All staff members involved in the procedure completed a timeout prior to the start of the procedure verifying correct patient identity and correct procedure to be performed. A transesophageal echocardiography study (including agitated saline contrast study) was performed. Total time physician provided txpu-lp-fkcm service beginning with the administration of sedation medications until the patient was sufficiently recovered after the procedure was 25 minutes. FER probe type used: Kristopher. Patient reaction to probe was poor. Indications for study: endocarditis / bacteremia. Complications include unsuccessful esophageal intubation. [facility] Radiology Study observation (narrative) [facility] ECHOCARDIOGRAM TRANSESOPHAGE AL (FER)Ordered By: Radha Gunter on 08-10-[address] [facility] Work Phone: Basic metabolic 2000 panelon 07-23-2023 Anion gap [Moles/Vol] 13 mmol/L Normal 9-18 [facility] Comment on above: Order Comment: Angela bueno Type: BLOOD SPECIMEN Ordering Facility: External Submitter Address: , , Performed By: #### 2 4325-3, 51831-8 #### [facility] CLIA [id number] [address] [place] [address] [place] Calcium [Mass/Vol] 8.7 mg/dL Normal 8.5-10.2 [facility] Comment on above: Order Comment: Angela bueno Type: BLOOD SPECIMEN Ordering Facility: External Submitter Address: , , Performed By: #### 2 4325-3, 89806-6 #### [facility] CLIA [id number] [address] [place] [address] [place] Chloride [Moles/Vol] 102 mmol/L Normal 97-105 [facility] Comment on above: Order Comment: Speci men Type: BLOOD SPECIMEN Ordering Facility: External Submitter Address: , , Performed By: #### 2 4325-3, #### [facility] CLIA [id number] [address] [place] [address] [place] CO2 [Moles/Vol] 23 mmol/L Normal 22-30 [facility] Comment on above: Order Comment: Speci men Type: BLOOD SPECIMEN Ordering Facility: External Submitter Address: , , Performed By: #### 2 4325-3, #### [facility] [place] [id number] [address] [place] [address] [place] Creatinine [Mass/Vol] 0.95 mg/dL Normal 0.73-1.22 [facility] Comment on above: Order Comment: Speci men Type: BLOOD SPECIMEN Ordering Facility: External Submitter Address: , , Performed By: #### 2 4325-3, #### [facility] [place] [id number] [address] [place] [address] [place] Creatinine and Glomerular filtration rate.predicted panel (S/P/Bld) 82 mL/min/1.73m??? Normal >=60 [facility] Comment on above: Order Comment: Speci [...] actual GFR. Performed By: #### 2 4325-3, 10915-7 #### [facility] CLIA [id number] [address] [address] [place] Glucose [Mass/Vol] 83 mg/dL Normal 74-99 [facility] Comment on above: Order Comment: Angela bueno Type: BLOOD SPECIMEN Ordering Facility: External Submitter Address: , , Result Comment: The [place] [employer] (ADA) provides guidance for cutoff [...] Standards of Medical Care in Diabetes 2016, [place] [employer]. Diabetes Care. 2016.39(Suppl 1). Performed By: #### 2 4325-3, #### [facility] CLIA [id number] [address] [address] [place] Potassium [Moles/Vol] 4.5 mmol/L Normal 3.7-5.1 [facility] Comment on above: Order Comment: Angela bueno Type: BLOOD SPECIMEN Ordering Facility: External Submitter Address: , , Performed By: #### 2 4325-3, #### [facility] CLIA [id number] [address] [address] [place] Sodium [Moles/Vol] 138 mmol/L Normal 136-144 [facility] Comment on above: Order Comment: Angela bueno Type: BLOOD SPECIMEN Ordering Facility: External Submitter Address: , , Performed By: #### 2 4325-3, #### [facility] CLIA [id number] [address] [address] [place] Urea nitrogen [Mass/Vol] 13 mg/dL Normal 9-24 [facility] Comment on above: Order Comment: Speci men Type: BLOOD SPECIMEN Ordering Facility: External Submitter Address: , , Performed By: #### 2 4325-3, 01244-2 #### [facility] CLIA [id number] [address] [place] [address] [place] CBC W Auto Differential pane l (Bld)on 07-23-2023 Basophils (Bld) [#/Vol] 0.06 10*3/uL Normal <0.11 [facility] Comment on above: Order Comment: Speci men Type: BLOOD SPECIMEN Ordering Facility: External Submitter Address: , , Performed By: #### 5 7021-8 #### [facility] CLIA [id number] [address] [place] [address] [place] Basophils/100 WBC (Bld) 1.0 % Normal [facility] Comment on above: Order Comment: Speci men Type: BLOOD SPECIMEN Ordering Facility: External Submitter Address: , , Performed By: #### 5 7021-8 #### [facility] CLIA [id number] [address] [place] [address] [place] Differential cell count method Nom (Bld) Auto Normal [facility] Comment on above: Order Comment: Speci men Type: BLOOD SPECIMEN Ordering Facility: External Submitter Address: , , Performed By: #### 5 7021-8 #### [facility] CLIA [id number] [address] [place] [address] [place] Eosinophils (Bld) [#/Vol] 0.22 10*3/uL Normal <0.46 [facility] Comment on above: Order Comment: Speci men Type: BLOOD SPECIMEN Ordering Facility: External Submitter Address: , , Performed By: #### 5 7021-8 #### [facility] CLIA [id number] [address] [place] [address] [place] Eosinophils/100 WBC (Bld) 3.7 % Normal [facility] Comment on above: Order Comment: Speci men Type: BLOOD SPECIMEN Ordering Facility: External Submitter Address: , , Performed By: #### 5 7021-8 #### [facility] CLIA [id number] [address] [place] [address] [place] Erythrocyte distribution width (RBC) [Ratio] 15.3 % High 11.5-15.0 [facility] Comment on above: Order Comment: Speci men Type: BLOOD SPECIMEN Ordering Facility: External Submitter Address: , , Performed By: #### 5 7021-8 #### [facility] CLIA [id number] [address] [place] [address] [place] Hematocrit (Bld) [Volume fraction] 33.7 % Low 39.0-51.0 [facility] Comment on above: Order Comment: Speci men Type: BLOOD SPECIMEN Ordering Facility: External Submitter Address: , , Performed By: #### 5 7021-8 #### [facility] CLIA [id number] [address] [place] [address] [place] Hemoglobin (Bld) [Mass/Vol] 10.3 g/dL Low 13.0-17.0 [facility] Comment on above: Order Comment: Speci men Type: BLOOD SPECIMEN Ordering Facility: External Submitter Address: , , Performed By: #### 5 7021-8 #### [facility] CLIA [id number] [address] [place] [address] [place] Immature granulocytes (Bld) [#/Vol] 10*3/uL Normal <0.10 [facility] Comment on above: Order Comment: Speci men Type: BLOOD SPECIMEN Ordering Facility: External Submitter Address: , , Performed By: #### 5 7021-8 #### [facility] CLIA [id number] [address] [place] [address] [place] Immature granulocytes/100 WBC (Bld) 0.3 % Normal [facility] Comment on above: Order Comment: Speci men Type: BLOOD SPECIMEN Ordering Facility: External Submitter Address: , , Performed By: #### 5 7021-8 #### [facility] CLIA [id number] [address] [place] [address] [place] Lymphocytes (Bld) [#/Vol] 0.62 10*3/uL Low 1.00-4.00 [facility] Comment on above: Order Comment: Speci men Type: BLOOD SPECIMEN Ordering Facility: External Submitter Address: , , Performed By: #### 5 7021-8 #### [facility] CLIA [id number] [address] [place] [address] [place] Lymphocytes/100 WBC (Bld) 10.5 % Normal [facility] Comment on above: Order Comment: Speci men Type: BLOOD SPECIMEN Ordering Facility: External Submitter Address: , , Performed By: #### 5 7021-8 #### [facility] CLIA [id number] [address] [place] [address] [place] MCH (RBC) [Entitic mass] 27.8 pg Normal 26.0-34.0 [facility] Comment on above: Order Comment: Speci men Type: BLOOD SPECIMEN Ordering Facility: External Submitter Address: , , Performed By: #### 5 7021-8 #### [facility] CLIA [id number] [address] [place] [address] [place] MCHC (RBC) [Mass/Vol] 30.6 g/dL Normal 30.5-36.0 [facility] Comment on above: Order Comment: Speci men Type: BLOOD SPECIMEN Ordering Facility: External Submitter Address: , , Performed By: #### 5 7021-8 #### [facility] CLIA [id number] [address] [place] [address] [place] MCV (RBC) [Entitic vol] 91.1 fL Normal 80.0-100.0 [facility] Comment on above: Order Comment: Speci men Type: BLOOD SPECIMEN Ordering Facility: External Submitter Address: , , Performed By: #### 5 7021-8 #### [facility] CLIA [id number] [address] [place] [address] [place] Monocytes (Bld) [#/Vol] 1.09 10*3/uL High <0.87 [facility] Comment on above: Order Comment: Speci men Type: BLOOD SPECIMEN Ordering Facility: External Submitter Address: , , Performed By: #### 5 7021-8 #### [facility] CLIA [id number] [address] [place] [address] [place] Monocytes/100 WBC (Bld) 18.4 % Normal [facility] Comment on above: Order Comment: Speci men Type: BLOOD SPECIMEN Ordering Facility: External Submitter Address: , , Performed By: #### 5 7021-8 #### [facility] CLIA [id number] [address] [place] [address] [place] Neutrophils (Bld) [#/Vol] 3.92 10*3/uL Normal 1.45-7.50 [facility] Comment on above: Order Comment: Speci men Type: BLOOD SPECIMEN Ordering Facility: External Submitter Address: , , Performed By: #### 5 7021-8 #### [facility] CLIA [id number] [address] [place] [address] [place] Neutrophils/100 WBC (Bld) 66.1 % Normal [facility] Comment on above: Order Comment: Speci men Type: BLOOD SPECIMEN Ordering Facility: External Submitter Address: , , Performed By: #### 5 7021-8 #### [facility] CLIA [id number] [address] [place] [address] [place] Nucleated RBC (Bld) [#/Vol] 10*3/uL Normal <0.01 [facility] Comment on above: Order Comment: Speci men Type: BLOOD SPECIMEN Ordering Facility: External Submitter Address: , , Performed By: #### 5 7021-8 #### [facility] CLIA [id number] [address] [place] [address] [place] Nucleated RBC/100 WBC (Bld) [Ratio] 0.0 /100 WBC Normal [facility] Comment on above: Order Comment: Speci men Type: BLOOD SPECIMEN Ordering Facility: External Submitter Address: , , Performed By: #### 5 7021-8 #### [facility] CLIA [id number] [address] [place] [address] [place] Platelet mean volume (Bld) [Entitic vol] 10.4 fL Normal 9.0-12.7 [facility] Comment on above: Order Comment: Speci men Type: BLOOD SPECIMEN Ordering Facility: External Submitter Address: , , Performed By: #### 5 7021-8 #### [facility] CLIA [id number] [address] [place] [address] [place] Platelets (Bld) [#/Vol] 276 10*3/uL Normal 150-400 [facility] Comment on above: Order Comment: Speci men Type: BLOOD SPECIMEN Ordering Facility: External Submitter Address: , , Performed By: #### 5 7021-8 #### [facility] CLIA [id number] [address] [place] [address] [place] RBC (Bld) [#/Vol] 3.70 10*6/uL Low 4.20-6.00 [facility] Comment on above: Order Comment: Speci men Type: BLOOD SPECIMEN Ordering Facility: External Submitter Address: , , Performed By: #### 5 7021-8 #### [facility] CLIA [id number] [address] [place] [address] [place] WBC (Bld) [#/Vol] 5.93 10*3/uL Normal 3.70-11.00 [facility] Comment on above: Order Comment: Speci men Type: BLOOD SPECIMEN Ordering Facility: External Submitter Address: , , Performed By: #### 5 7021-8 #### [facility] CLIA [id number] [address] [place] [address] [place] Hepatic function 2000 panelo n 07-23-2023 Albumin [Mass/Vol] 3.6 g/dL Low 3.9-4.9 [facility] Comment on above: Order Comment: Speci men Type: BLOOD SPECIMEN Ordering Facility: External Submitter Address: , , Performed By: #### 2 4325-3, 90022-2 #### [facility] CLIA [id number] [address] [place] [address] [place] ALP [Catalytic activity/Vol] 136 U/L High 38-113 [facility] Comment on above: Order Comment: Speci men Type: BLOOD SPECIMEN Ordering Facility: External Submitter Address: , , Performed By: #### 2 4325-3, 62368-3 #### [facility] CLIA [id number] [address] [place] [address] [place] ALT [Catalytic activity/Vol] U/L Low 10-54 [facility] Comment on above: Order Comment: Speci men Type: BLOOD SPECIMEN Ordering Facility: External Submitter Address: , , Result Comment: Resu lt rechecked. Performed By: #### 2 4325-3, 90570-9 #### [facility] CLIA [id number] [address] [place] [id number] [place] AST [Catalytic activity/Vol] 21 U/L Normal 14-40 [facility] Comment on above: Order Comment: Speci men Type: BLOOD SPECIMEN Ordering Facility: External Submitter Address: , , Performed By: #### 2 4325-3, 73123-9 #### [facility] CLIA [id number] [address] [place] [address] [place] Bilirubin [Mass/Vol] 0.3 mg/dL Normal 0.2-1.3 [facility] Comment on above: Order Comment: Specchyna bueno Type: BLOOD SPECIMEN Ordering Facility: External Submitter Address: , , Performed By: #### 2 4325-3, 85210-2 #### [facility] CLIA [id number] [address] [place] [address] [place] Bilirubin.conjugated [Mass/Vol] mg/dL Normal <0.2 [facility] Comment on above: Order Comment: Angela bueno Type: BLOOD SPECIMEN Ordering Facility: External Submitter Address: , , Performed By: #### 2 4325-3, #### [facility] CLIA [id number] [address] [place] [address] [place] Protein [Mass/Vol] 6.6 g/dL Normal 6.3-8.0 [facility] Comment on above: Order Comment: Angela bueno Type: BLOOD SPECIMEN Ordering Facility: External Submitter Address: , , Performed By: #### 2 4325-3, #### [facility] CLIA [id number] [address] [place] [address] [place] Laboratory - Coagulationon 0 06-19-2023 INR Coag (Bld) [Relative time] 2.5 {INR} High 0.9 - 1.[address] [facility] PT Coag (PPP) [Time] 27.0 s High [facility] No Panel InformationOrdered By: Jeff Reilly on 06-19-[address] [facility] Work Phone: No Panel Informationon 06-[address] [facility] Interpretation and review of laboratory results Abnormal [facility] Laboratory - Chemistry and C hemistry - challengeon 06-18-2023 Anion gap [Moles/Vol] 13 mmol/L 7 - 17 mmol/L [facility] Chloride [Moles/Vol] 102 mmol/L 98 - 108 mmol/L [facility] CO2 [Moles/Vol] 28 mmol/L 21 - 31 mmol/L [facility] Creatinine [Mass/Vol] 1.03 mg/dL 0.70 - 1.30 mg/dL [facility] Magnesium [Mass/Vol] 2.0 mg/dL 1.6 - 2.6 mg/dL [facility] Potassium [Moles/Vol] 4.6 mmol/L 3.5 - 5.0 mmol/L [facility] Sodium [Moles/Vol] 138 mmol/L 135 - 145 mmol/L [facility] Urea nitrogen [Mass/Vol] 20 mg/dL 7 - 25 mg/dL [facility] Urea nitrogen/Creatinine [Mass ratio] 19 mg/mg [facility] Laboratory - CoagulationOrde red By: Akash Hastings on 06-18-2023 aPTT Coag (PPP) [Time] 123.4 s High [facility] Laboratory - Coagulationon 0 06-18-2023 INR Coag (Bld) [Relative time] 2.5 {INR} High 0.9 - 1.[address] [facility] PT Coag (PPP) [Time] 26.5 s High [facility] No Panel Informationon 06-[address] [facility] Interpretation and review of laboratory results Abnormal [facility] eGFR, CKD-EPI, Male 74 - PINF [facility] Comment on above: Reported eGFR is bas ed on the CKD-EPI 2020 equation using creatinine, age, and sex. Interpretation and review of laboratory results Normal [facility] No Panel InformationOrdered By: Akash Hastings on 06-18-2023 Interpretation and review of laboratory results Abnormal [facility] Laboratory - Chemistry and C hemistry - challengeon 06-17-2023 Creatinine [Mass/Vol] 1.04 mg/dL 0.70 - 1.30 mg/dL [facility] Laboratory - Coagulationon 0 06-17-2023 aPTT Coag (PPP) [Time] 74.5 s High [facility] aPTT Coag (PPP) [Time] 101.7 s High [facility] aPTT Coag (PPP) [Time] 91.6 s [facility] INR Coag (Bld) [Relative time] 1.7 {INR} High 0.9 - 1.[address] [facility] PT Coag (PPP) [Time] 20.0 s High [facility] Laboratory - Hematology and Cell countson 06-17-2023 Platelet mean volume (Bld) [Entitic vol] 10.2 fL 8.7 - 12.[address] [facility] Platelets (Bld) [#/Vol] 270 10*3/uL 146 - 337 K/uL [facility] No Panel Informationon 06-17 Interpretation and review of laboratory results Abnormal [facility] Interpretation and review of laboratory results Abnormal [facility] Interpretation and review of laboratory results Normal [facility] Interpretation and review of laboratory results Abnormal [facility] Interpretation and review of laboratory results Abnormal [facility] eGFR, CKD-EPI, Male 73 - PINF [facility] Comment on above: Reported eGFR is bas ed on the CKD-EPI 2020 equation using creatinine, age, and sex. Interpretation and review of laboratory results Normal [facility] Bacteria identified Cx Nom ( Bld)on 06-16-2023 Bacteria identified Cx Nom (Unsp spec) NO GROWTH DAY 5 OF 5 [facility] Results may be compromised due to volume of BACT\ALERT bottle below 8mLs. The optimal blood volume is 8-10 mls per aerobic/anaerobic blood culture bottle [facility] Bacteria identified Cx Nom (Unsp spec) NO GROWTH DAY 5 OF 5 [facility] Laboratory - Coagulationon 0 06-16-2023 aPTT Coag (PPP) [Time] 71.1 s High [facility] aPTT Coag (PPP) [Time] 116.6 s High [facility] INR Coag (Bld) [Relative time] 1.4 {INR} High 0.9 - 1.[address] [facility] PT Coag (PPP) [Time] 17.2 s High [facility] Laboratory - CoagulationOrde red By: Leroy Daniels on 06-16-2023 aPTT Coag (PPP) [Time] 72.3 s High [facility] Comment on above: Results inconsistent with previous results Laboratory - CoagulationOrde red By: Nato José on 06-16-2023 aPTT Coag (PPP) [Time] 91.4 s High [facility] No Panel Informationon 06-16 Interpretation and review of laboratory results Abnormal [facility] Interpretation and review of laboratory results Abnormal [facility] Interpretation and review of laboratory results Abnormal [facility] No Panel InformationOrdered By: Leroy Daniels on 06-16-2023 Interpretation and review of laboratory results Abnormal [facility] No Panel InformationOrdered By: Nato José on 06-16-2023 Interpretation and review of laboratory results Abnormal [facility] Laboratory - Chemistry and C hemistry - challengeon 06-15-2023 Anion gap [Moles/Vol] 12 mmol/L 7 - 17 mmol/L [facility] Chloride [Moles/Vol] 103 mmol/L 98 - 108 mmol/L [facility] CO2 [Moles/Vol] 28 mmol/L 21 - 31 mmol/L [facility] Creatinine [Mass/Vol] 1.03 mg/dL 0.70 - 1.30 mg/dL [facility] Glucose [Mass/Vol] 93 mg/dL 70 - 99 mg/dL [facility] Magnesium [Mass/Vol] 1.9 mg/dL 1.6 - 2.6 mg/dL [facility] Osmolality Calc [Osmolality] [address] [facility] Potassium [Moles/Vol] 4.4 mmol/L 3.5 - 5.0 mmol/L [facility] Sodium [Moles/Vol] 139 mmol/L 135 - 145 mmol/L [facility] Urea nitrogen [Mass/Vol] 20 mg/dL 7 - 25 mg/dL [facility] Urea nitrogen/Creatinine [Mass ratio] 19 mg/mg [facility] Laboratory - Coagulationon 0 06-15-2023 aPTT Coag (PPP) [Time] 67.8 s High [facility] aPTT Coag (PPP) [Time] 82.6 s [facility] INR Coag (Bld) [Relative time] 1.2 {INR} High 0.9 - 1.[address] [facility] PT Coag (PPP) [Time] 15.5 s [facility] Laboratory - Hematology and Cell countson 06-15-2023 Platelet mean volume (Bld) [Entitic vol] 10.4 fL 8.7 - 12.[address] [facility] Platelets (Bld) [#/Vol] 269 10*3/uL 146 - 337 K/uL [facility] No Panel Informationon 06-15 Interpretation and review of laboratory results Abnormal [facility] Interpretation and review of laboratory results Normal [facility] Interpretation and review of laboratory results Abnormal [facility] Interpretation and review of laboratory results Abnormal [facility] eGFR, CKD-EPI, Male 74 - PINF [facility] Comment on above: Reported eGFR is bas ed on the CKD-EPI 2020 equation using creatinine, age, and sex. Interpretation and review of laboratory results Normal [facility] Laboratory - Chemistry and C hemistry - challengeon 06-14-2023 Anion gap [Moles/Vol] 12 mmol/L 7 - 17 mmol/L [facility] Chloride [Moles/Vol] 104 mmol/L 98 - 108 mmol/L [facility] CO2 [Moles/Vol] 26 mmol/L 21 - 31 mmol/L [facility] Creatinine [Mass/Vol] 1.11 mg/dL 0.70 - 1.30 mg/dL [facility] Glucose [Mass/Vol] 132 mg/dL High 70 - 99 mg/dL [facility] Magnesium [Mass/Vol] 1.9 mg/dL 1.6 - 2.6 mg/dL [facility] Osmolality Calc [Osmolality] [address] [facility] Potassium [Moles/Vol] 4.2 mmol/L 3.5 - 5.0 mmol/L [facility] Sodium [Moles/Vol] 138 mmol/L 135 - 145 mmol/L [facility] Urea nitrogen [Mass/Vol] 22 mg/dL 7 - 25 mg/dL [facility] Urea nitrogen/Creatinine [Mass ratio] 20 mg/mg [facility] Laboratory - Coagulationon 0 06-14-2023 aPTT Coag (PPP) [Time] 81.6 s High [facility] aPTT Coag (PPP) [Time] 85.3 s [facility] INR Coag (Bld) [Relative time] 1.3 {INR} High 0.9 - 1.[address] [facility] PT Coag (PPP) [Time] 16.3 s High [facility] No Panel Informationon 06-[address] [facility] Interpretation and review of laboratory results Abnormal [facility] Interpretation and review of laboratory results Abnormal [facility] Interpretation and review of laboratory results Abnormal [facility] eGFR, CKD-EPI, Male 68 - PINF [facility] Comment on above: Reported eGFR is bas ed on the CKD-EPI 2020 equation using creatinine, age, and sex. Interpretation and review of laboratory results Abnormal [facility] Interpretation and review of laboratory results Normal [facility] Portable XR Chest Viewson IMPRESSION: Appropriately positioned [...] I have reviewed and approved this report. [facility] Radiology Study observation (narrative) [facility] Bacteria identified Cx Nom ( Bld)on 06-13-2023 Bacteria identified Cx Nom (Unsp spec) NO [facility] DAY [facility] Cx Nom (Unsp spec) NO GROWTH DAY 5 OF 5 [facility] Laboratory - Chemistry and C hemistry - challengeon 06-13-2023 Anion gap [Moles/Vol] 12 mmol/L 7 - 17 mmol/L [facility] Chloride [Moles/Vol] 104 mmol/L 98 - 108 [facility] [Moles/Vol] 26 mmol/L 21 - 31 mmol/L [facility] Creatinine [Mass/Vol] 1.06 mg/dL 0.70 - 1.30 mg/dL [facility] Glucose [Mass/Vol] 95 mg/dL 70 - 99 mg/dL [facility] Magnesium [Mass/Vol] 2.0 mg/dL 1.6 - 2.6 mg/dL [facility] Osmolality Calc [Osmolality] [facility] Potassium [Moles/Vol] 4.2 mmol/L 3.5 - 5.0 mmol/L [facility] Sodium [Moles/Vol] 138 mmol/L 135 - 145 mmol/L [facility] Urea nitrogen [Mass/Vol] 21 mg/dL 7 - 25 mg/dL [facility] Urea nitrogen/Creatinine [Mass ratio] 20 mg/mg [facility] Laboratory - CoagulationOrde red By: William Das on 06-13-2023 aPTT Coag (PPP) [Time] 72.6 s High [facility] Laboratory - Coagulationon 0 06-13-2023 aPTT Coag (PPP) [Time] 53.4 s High [facility] aPTT Coag (PPP) [Time] 131.1 s High [facility] INR Coag (Bld) [Relative time] 1.4 {INR} High 0.9 - 1.[address] [facility] PT Coag (PPP) [Time] 17.3 s High [facility] Laboratory - CoagulationOrde red By: Columba Salmon on 06-13-2023 aPTT Coag (PPP) [Time] 52.2 s High [facility] Laboratory - Drug toxicology Ordered By: Malika Zepeda on 06-13-2023 Gentamicin trough [Mass/Vol] 0.6 mg/L [facility] Laboratory - Hematology and Cell countson 06-13-2023 Platelet mean volume (Bld) [Entitic vol] 10.3 fL 8.7 - 12.[address] [facility] Platelets (Bld) [#/Vol] 278 10*3/uL 146 - 337 K/uL [facility] No Panel Informationon 06-[address] [facility] Interpretation and review of laboratory results Abnormal [facility] Interpretation and review of laboratory results Normal [facility] Interpretation and review of laboratory results Abnormal [facility] eGFR, CKD-EPI, Male 72 - PINF [facility] Comment on above: Reported eGFR is bas ed on the CKD-EPI 2020 equation using creatinine, age, and sex. Interpretation and review of laboratory results Normal [facility] Interpretation and review of laboratory results Abnormal [facility] No Panel InformationOrdered By: William Das on 06-13-2023 Interpretation and review of laboratory results Abnormal [facility] No Panel InformationOrdered By: Malika Zepeda on 06-13-2023 Interpretation and review of laboratory results Normal [facility] No Panel InformationOrdered By: Columba Salmon on 06-13-2023 Interpretation and review of laboratory results Abnormal [facility] Laboratory - Chemistry and C hemistry - challengeon 06-12-2023 Albumin [Mass/Vol] 3.3 g/dL Low 3.5 - 5.0 g/dL [facility] Anion gap [Moles/Vol] 13 mmol/L 7 - 17 mmol/L [facility] Chloride [Moles/Vol] 101 mmol/L 98 - 108 mmol/L [facility] CO2 [Moles/Vol] 27 mmol/L 21 - 31 mmol/L [facility] Creatinine [Mass/Vol] 1.12 mg/dL 0.70 - 1.30 mg/dL [facility] Glucose [Mass/Vol] 96 mg/dL 70 - 99 mg/dL [facility] Magnesium [Mass/Vol] 2.0 mg/dL 1.6 - 2.6 mg/dL [facility] Osmolality Calc [Osmolality] [address] [facility] Potassium [Moles/Vol] 4.4 mmol/L 3.5 - 5.0 mmol/L [facility] Sodium [Moles/Vol] 137 mmol/L 135 - 145 mmol/L [facility] Urea nitrogen [Mass/Vol] 20 mg/dL 7 - 25 mg/dL [facility] Urea nitrogen/Creatinine [Mass ratio] 18 mg/mg [facility] Laboratory - Coagulationon 0 06-12-2023 aPTT Coag (PPP) [Time] 59.8 s High [facility] INR Coag (Bld) [Relative time] 1.5 {INR} High 0.9 - 1.[address] [facility] PT Coag (PPP) [Time] 17.7 s High [facility] Laboratory - CoagulationOrde red By: Jeff Dwyer on 06-12-2023 aPTT Coag (PPP) [Time] 63.5 s High [facility] Laboratory - CoagulationOrde red By: Silvestre Park on 06-12-2023 aPTT Coag (PPP) [Time] 121.0 s High [facility] Laboratory - Drug toxicology Ordered By: Biju Ivey on 06-12-2023 Gentamicin peak [Mass/Vol] 2.[address] [facility] No Panel InformationOrdered By: Biju Ivey on 06-12-2023 Interpretation and review of laboratory results Normal [facility] No Panel Informationon 06-12 Interpretation and review of laboratory results Abnormal [facility] Interpretation and review of laboratory results Abnormal [facility] eGFR, CKD-EPI, Male 67 - PINF [facility] Comment on above: Reported eGFR is bas ed on the CKD-EPI 2020 equation using creatinine, age, and sex. Interpretation and review of laboratory results Normal [facility] Interpretation and review of laboratory results Abnormal [facility] No Panel InformationOrdered By: Jeff Dwyer on 06-12-2023 Interpretation and review of laboratory results Abnormal [facility] No Panel InformationOrdered By: Silvestre Park on 06-12-2023 Interpretation and review of laboratory results Abnormal [facility] Laboratory - Chemistry and C hemistry - challengeon 06-11-2023 Anion gap [Moles/Vol] 14 mmol/L 7 - 17 mmol/L [facility] Chloride [Moles/Vol] 100 mmol/L 98 - 108 mmol/L [facility] CO2 [Moles/Vol] 27 mmol/L 21 - 31 mmol/L [facility] Creatinine [Mass/Vol] 1.10 mg/dL 0.70 - 1.30 mg/dL [facility] Glucose [Mass/Vol] 81 mg/dL 70 - 99 mg/dL [facility] Osmolality Calc [Osmolality] [address] [facility] Potassium [Moles/Vol] 4.4 mmol/L 3.5 - 5.0 mmol/L [facility] Sodium [Moles/Vol] 137 mmol/L 135 - 145 mmol/L [facility] Urea nitrogen [Mass/Vol] 21 mg/dL 7 - 25 mg/dL [facility] Urea nitrogen/Creatinine [Mass ratio] 19 mg/mg [facility] Magnesium [Mass/Vol] 2.0 mg/dL 1.6 - 2.6 mg/dL [facility] Potassium [Moles/Vol] 4.2 mmol/L 3.5 - 5.0 mmol/L [facility] Laboratory - CoagulationOrde red By: Oralia Pinto on 06-11-2023 aPTT Coag (PPP) [Time] 80.2 s High [facility] Laboratory - Coagulationon 0 06-11-2023 aPTT Coag (PPP) [Time] 39.7 s High [facility] INR Coag (Bld) [Relative time] 1.5 {INR} High 0.9 - 1.[address] [facility] PT Coag (PPP) [Time] 18.3 s High [facility] Laboratory - CoagulationOrde red By: Xu Martin on 06-11-2023 aPTT Coag (PPP) [Time] 60.8 s High [facility] Laboratory - CoagulationOrde red By: Louis Wilks on 06-11-2023 aPTT Coag (PPP) [Time] 140.1 s High [facility] Laboratory - Hematology and Cell countson 06-11-2023 Platelet mean volume (Bld) [Entitic vol] 10.6 fL 8.7 - 12.[address] [facility] Platelets (Bld) [#/Vol] 260 10*3/uL 146 - 337 K/uL [facility] No Panel InformationOrdered By: Oralia Pinto on 06-11-2023 Interpretation and review of laboratory results Abnormal [facility] No Panel Informationon 06-[address] [facility] Interpretation and review of laboratory results Abnormal [facility] Interpretation and review of laboratory results Normal [facility] eGFR, CKD-EPI, Male 69 - PINF [facility] Comment on above: Reported eGFR is bas ed on the CKD-EPI 2020 equation using creatinine, age, and sex. [facility] Interpretation and review of laboratory results Abnormal [facility] Interpretation and review of laboratory results Normal [facility] No Panel InformationOrdered By: Xu Martin on 06-11-2023 Interpretation and review of laboratory results Abnormal [facility] No Panel InformationOrdered By: Louis Wilks on 06-11-2023 Interpretation and review of laboratory results Abnormal [facility] Bacteria identified Cx Nom ( Bld)on 06-10-2023 Bacteria identified Cx Nom (Unsp spec) Growth [facility] Bacteria identified Cx Nom (Unsp spec) STAPHYLOCOCCUS AUREUS Abnormal [facility] Comment on above: Susceptibilities set up on 06/08/23 Do not use oral antibiotics for this type of bacteremia. If an oral antibiotic is requested, please consult the ASP team (pager [phone]) for guidance. Interpretation and review of laboratory results Abnormal [facility] Results may be compromised due to volume of BACT\ALERT bottle exceeding 10mLs . The optimal blood volume is 8-10 mls per aerobic/anaerobic blood culture bottle. [facility] Bacteria identified Cx Nom ( Bld)Ordered By: Tiny Mcallister on 06-10-2023 Bacteria identified Cx Nom (Unsp spec) Growth [facility] Bacteria identified Cx Nom (Unsp spec) STAPHYLOCOCCUS AUREUS Abnormal [facility] Comment on above: Refer to specimen 24 [id number] for susceptibilities. Interpretation and review of laboratory results Abnormal [facility] Results may be compromised due to volume of BACT\ALERT bottle exceeding 10mLs . The optimal blood volume is 8-10 mls per aerobic/anaerobic blood culture bottle. [facility] Laboratory - Chemistry and C hemistry - challengeon 06-10-2023 Anion gap [Moles/Vol] 12 mmol/L 7 - 17 mmol/L [facility] Chloride [Moles/Vol] 104 mmol/L 98 - 108 mmol/L [facility] CO2 [Moles/Vol] 26 mmol/L 21 - 31 mmol/L [facility] Creatinine [Mass/Vol] 0.91 mg/dL 0.70 - 1.30 mg/dL [facility] Glucose [Mass/Vol] 87 mg/dL 70 - 99 mg/dL [facility] Magnesium [Mass/Vol] 1.8 mg/dL 1.6 - 2.6 mg/dL [facility] Osmolality Calc [Osmolality] [address] [facility] Potassium [Moles/Vol] 3.9 mmol/L 3.5 - 5.0 mmol/L [facility] Sodium [Moles/Vol] 138 mmol/L 135 - 145 mmol/L [facility] Urea nitrogen [Mass/Vol] 21 mg/dL 7 - 25 mg/dL [facility] Urea nitrogen/Creatinine [Mass ratio] 23 mg/mg [facility] Laboratory - CoagulationOrde red By: Jennifer Flower on 06-10-2023 aPTT Coag (PPP) [Time] 102.8 s [facility] Laboratory - Coagulationon 0 06-10-2023 aPTT Coag (PPP) [Time] 62.5 s High [facility] Laboratory - CoagulationOrde red By: Coral Juárez on 06-10-2023 aPTT Coag (PPP) [Time] 55.2 s High [facility] Laboratory - CoagulationOrde red By: Lubna Snow on 06-10-2023 aPTT Coag (PPP) [Time] 138.0 s High [facility] INR Coag (Bld) [Relative time] 1.4 {INR} High 0.9 - 1.[address] [facility] PT Coag (PPP) [Time] 17.1 s High [facility] Laboratory - Drug toxicology Ordered By: Sonia Boateng on 06-10-2023 Gentamicin trough [Mass/Vol] 1.5 mg/L Critically high [facility] No Panel InformationOrdered By: Jennifer Flower on 06-10-2023 Interpretation and review of laboratory results Abnormal [facility] No Panel InformationOrdered By: Sonia Boateng on 06-10-2023 Interpretation and review of laboratory results Abnormal [facility] No Panel Informationon 06-10 Interpretation and review of laboratory results Abnormal [facility] eGFR, CKD-EPI, Male 86 - PINF [facility] Comment on above: Reported eGFR is bas ed on the CKD-EPI 2020 equation using creatinine, age, and sex. Interpretation and review of laboratory results Normal [facility] No Panel InformationOrdered By: Coral Juárez on 06-10-2023 Interpretation and review of laboratory results Abnormal [facility] No Panel InformationOrdered By: Lubna Snow on 06-10-2023 Interpretation and review of laboratory results Abnormal [facility] Laboratory - Chemistry and C hemistry - challengeon 06-09-2023 Anion gap [Moles/Vol] 11 mmol/L 7 - 17 mmol/L [facility] Chloride [Moles/Vol] 104 mmol/L 98 - 108 mmol/L [facility] CO2 [Moles/Vol] 26 mmol/L 21 - 31 mmol/L [facility] Creatinine [Mass/Vol] 0.93 mg/dL 0.70 - 1.30 mg/dL [facility] Glucose [Mass/Vol] 100 mg/dL High 70 - 99 mg/dL [facility] Magnesium [Mass/Vol] 1.9 mg/dL 1.6 - 2.6 mg/dL [facility] Osmolality Calc [Osmolality] [address] [facility] Potassium [Moles/Vol] 4.2 mmol/L 3.5 - 5.0 mmol/L [facility] Sodium [Moles/Vol] 137 mmol/L 135 - 145 mmol/L [facility] Urea nitrogen [Mass/Vol] 23 mg/dL 7 - 25 mg/dL [facility] Urea nitrogen/Creatinine [Mass ratio] 25 mg/mg [facility] Laboratory - Coagulationon 0 06-09-2023 aPTT Coag (PPP) [Time] 92.7 s High [facility] INR Coag (Bld) [Relative time] 1.4 {INR} High 0.9 - 1.[address] [facility] PT Coag (PPP) [Time] 16.9 s High [facility] aPTT Coag (PPP) [Time] 101.7 s [facility] aPTT Coag (PPP) [Time] 91.6 s [facility] Laboratory - Hematology and Cell countson 06-09-2023 Platelet mean volume (Bld) [Entitic vol] 10.3 fL 8.7 - 12.[address] [facility] Platelets (Bld) [#/Vol] 287 10*3/uL 146 - 337 K/uL [facility] No Panel Informationon 06-09 Interpretation and review of laboratory results Abnormal [facility] Interpretation and review of laboratory results Normal [facility] Interpretation and review of laboratory results Abnormal [facility] Interpretation and review of laboratory results Abnormal [facility] eGFR, CKD-EPI, Male 84 - PINF [facility] Comment on above: Reported eGFR is bas ed on the CKD-EPI 2020 equation using creatinine, age, and sex. Interpretation and review of laboratory results Normal [facility] Interpretation and review of laboratory results Abnormal [facility] No Panel InformationOrdered By: Unassigned Pacs on 06-09-[address] [facility] Work Phone: Laboratory - Chemistry and C hemistry - challengeon 06-08-2023 Anion gap [Moles/Vol] 13 mmol/L 7 - 17 mmol/L [facility] Chloride [Moles/Vol] 103 mmol/L 98 - 108 mmol/L [facility] CO2 [Moles/Vol] 25 mmol/L 21 - 31 mmol/L [facility] Creatinine [Mass/Vol] 0.92 mg/dL 0.70 - 1.30 mg/dL [facility] Glucose [Mass/Vol] 116 mg/dL High 70 - 99 mg/dL [facility] Osmolality Calc [Osmolality] [address] [facility] Potassium [Moles/Vol] 3.9 mmol/L 3.5 - 5.0 mmol/L [facility] Sodium [Moles/Vol] 137 mmol/L 135 - 145 mmol/L [facility] Urea nitrogen [Mass/Vol] 20 mg/dL 7 - 25 mg/dL [facility] Urea nitrogen/Creatinine [Mass ratio] 22 mg/mg [facility] Magnesium [Mass/Vol] 2.0 mg/dL 1.6 - 2.6 mg/dL [facility] Laboratory - Coagulationon 0 06-08-2023 aPTT Coag (PPP) [Time] 80.1 s High [facility] aPTT Coag (PPP) [Time] 69.8 s High [facility] Laboratory - CoagulationOrde red By: Kalina Mejia on 06-08-2023 aPTT Coag (PPP) [Time] 92.6 s High [facility] Laboratory - Drug toxicology Ordered By: Eder Ramirez on 06-08-2023 Gentamicin trough [Mass/Vol] 1.1 mg/L Critically high [facility] Laboratory - Hematology and Cell countson 06-08-2023 Erythrocyte distribution width (RBC) [Ratio] 18.7 % High 10.9 - 14.3 % [facility] Hematocrit (Bld) [Volume fraction] 32.6 % Low 39.6 - 48.8 % [facility] Hemoglobin (Bld) [Mass/Vol] 10.2 g/dL Low 13.4 - 16.8 g/dL [facility] MCH (RBC) [Entitic mass] 28.3 pg 26.1 - 33.[address] [facility] MCHC (RBC) [Mass/Vol] 31.3 g/dL Low 31.9 - 36.5 g/dL [facility] MCV (RBC) [Entitic vol] 90.6 fL 79.0 - 94.[address] [facility] Platelet mean volume (Bld) [Entitic vol] 10.9 fL 8.7 - 12.[address] [facility] Platelets (Bld) [#/Vol] 226 10*3/uL 146 - 337 K/uL [facility] RBC (Bld) [#/Vol] 3.60 10*6/uL Low [facility] WBC (Bld) [#/Vol] 15.06 10*3/uL High 3.73 - 10 .10 K/uL [facility] No Panel Informationon 06-08 Interpretation and review of laboratory results Abnormal [facility] Interpretation and review of laboratory results Abnormal [facility] eGFR, CKD-EPI, Male 85 - PINF [facility] Comment on above: Reported eGFR is bas ed on the CKD-EPI 2020 equation using creatinine, age, and sex. Interpretation and review of laboratory results Abnormal [facility] Interpretation and review of laboratory results Normal [facility] Interpretation and review of laboratory results Abnormal [facility] No Panel InformationOrdered By: Eder Ramirez on 06-08-2023 Interpretation and review of laboratory results Abnormal [facility] No Panel InformationOrdered By: Kalina Mejia on 06-08-2023 Interpretation and review of laboratory results Abnormal [facility] Laboratory - CoagulationOrde red By: Jeff Hebert on 06-07-2023 aPTT Coag (PPP) [Time] 54.2 s High [facility] Laboratory - Coagulationon 0 06-07-2023 aPTT Coag (PPP) [Time] 39.9 s High [facility] aPTT Coag (PPP) [Time] 43.5 s High [facility] INR Coag (Bld) [Relative time] 2.1 {INR} High 0.9 - 1.[address] [facility] PT Coag (PPP) [Time] 23.3 s High [facility] Laboratory - Hematology and Cell countson 06-07-2023 Erythrocyte distribution width (RBC) [Ratio] 19.1 % High 10.9 - 14.3 % [facility] Hematocrit (Bld) [Volume fraction] 33.5 % Low 39.6 - 48.8 % [facility] Hemoglobin (Bld) [Mass/Vol] 10.6 g/dL Low 13.4 - 16.8 g/dL [facility] MCH (RBC) [Entitic mass] 27.8 pg 26.1 - 33.[address] [facility] MCHC (RBC) [Mass/Vol] 31.6 g/dL Low 31.9 - 36.5 g/dL [facility] MCV (RBC) [Entitic vol] 87.9 fL 79.0 - 94.[address] [facility] Platelet mean volume (Bld) [Entitic vol] 10.3 fL 8.7 - 12.[address] [facility] Platelets (Bld) [#/Vol] 222 10*3/uL 146 - 337 K/uL [facility] RBC (Bld) [#/Vol] 3.81 10*6/uL Low [facility] WBC (Bld) [#/Vol] 14.90 10*3/uL High 3.73 - 10 .10 K/uL [facility] Laboratory - Microbiology an d Antimicrobial susceptibilityOrdered By: Gm Scott on 06-07-2023 C. albicans DNA MICHELLE+non-probe Ql (Pos bld culture) Not detected Not Detected [facility] C. glabrata DNA MICHELLE+non-probe Ql (Pos bld culture) Not detected Not Detected [facility] C. krusei DNA MICHELLE+non-probe Ql (Pos bld culture) Not detected Not Detected [facility] C. parapsilosis DNA MICHELLE+non-probe Ql (Pos bld culture) Not detected Not Detected [facility] C. tropicalis DNA MICHELLE+non-probe Ql (Pos bld culture) Not detected Not Detected [facility] E. cloacae complex DNA MICHELLE+non-probe Ql (Pos bld culture) Not detected Not Detected [facility] E. coli DNA MICHELLE+non-probe Ql (Pos bld culture) Not detected Not Detected [facility] H. influenzae DNA MICHELLE+non-probe Ql (Pos bld culture) Not detected [facility] K. oxytoca DNA MICHELLE+non-probe Ql (Pos bld culture) Not detected Not Detected [facility] L. monocytogenes DNA MICHELLE+non-probe Ql (Pos bld culture) Not detected Not Detected [facility] N. meningitidis DNA MICHELLE+non-probe Ql (Pos bld culture) Not detected Not Detected [facility] P. aeruginosa DNA MICHELLE+non-probe Ql (Pos bld culture) Not detected Not Detected [facility] Proteus sp DNA MICHELLE+non-probe Ql (Pos bld culture) Not detected [facility] S. agalactiae DNA MICHELLE+non-probe Ql (Pos bld culture) Not detected [facility] S. aureus DNA MICHELLE+non-probe Ql (Pos bld culture) Detected Abnormal [facility] S. marcescens DNA MICHELLE+non-probe Ql (Pos bld culture) Not detected [facility] S. pneumoniae DNA MICHELLE+non-probe Ql (Pos bld culture) Not detected Not Detected [facility] S. pyogenes DNA MICHELLE+non-probe Ql (Pos bld culture) Not detected Not Detected [facility] Staphylococcus sp DNA MICHELLE+non-probe Ql (Pos bld culture) Detected Abnormal Not Detected [facility] Streptococcus sp DNA MICHELLE+non-probe Ql (Pos bld culture) Not detected Not Detected [facility] No Panel InformationOrdered By: Gm Scott on 06-07-2023 Acinetobacter calcoaceticus-sander ii complex DNA Not detected [facility] Bacteroides fragilis DNA Not detected [facility] Shital auris DNA Not detected Not [facility]ed [facility] Cryptococcus diaz/neoformans DNA Not detected [facility] Enterobacterales DNA Not detected [facility] Enterococcus faecalis DNA Not detected Not [facility] Enterococcus faecium DNA Not detected Not Detected [facility] Interpretation and review of laboratory results Abnormal [facility] Klebsiella aerogenes DNA Not detected Not Detected [facility] Klebsiella pneumoniae group DNA Not detected Not Detected [facility] mecA/C and MREJ (MRSA) Not detected Not Detected [facility] Salmonella species DNA Not detected Not Detected [facility] Staphylococcus epidermidis DNA Not detected Not Detected [facility] Staphylococcus lugdunensis DNA Not detected Not Detected [facility] Stenotrophomonas maltophilia DNA Not detected Not Detected [facility] Results may be compromised due to [...] conjunction with other clinical and laboratory findings. [facility] No Panel InformationOrdered By: Jeff Hebert on 06-07-2023 Interpretation and review of laboratory results Abnormal [facility] No Panel Informationon 06-07 Interpretation and review of laboratory results Abnormal [facility] Interpretation and review of laboratory results Abnormal [facility] Interpretation and review of laboratory results Abnormal [facility] Portable XR Chest Viewson IMPRESSION: Right IJ [...] CVC in place, no complication. Pulmonary edema. [facility] Portable XR Chest ViewsOrder ed By: Louie Mahmood on 06-07-[address] [facility] Work Phone: Laboratory - Chemistry and C hemistry - challengeon 06-06-2023 Anion gap [Moles/Vol] 13 mmol/L 7 - 17 mmol/L [facility] Chloride [Moles/Vol] 103 mmol/L 98 - 108 mmol/L [facility] CO2 [Moles/Vol] 28 mmol/L 21 - 31 mmol/L [facility] Creatinine [Mass/Vol] 0.95 mg/dL 0.70 - 1.30 mg/dL [facility] Glucose [Mass/Vol] 94 mg/dL 70 - 99 mg/dL [facility] Magnesium [Mass/Vol] 1.7 mg/dL 1.6 - 2.6 mg/dL [facility] Osmolality Calc [Osmolality] [address] [facility] Potassium [Moles/Vol] 3.5 mmol/L 3.5 - 5.0 mmol/L [facility] Sodium [Moles/Vol] 140 mmol/L 135 - 145 mmol/L [facility] Urea nitrogen [Mass/Vol] 16 mg/dL 7 - 25 mg/dL [facility] Urea nitrogen/Creatinine [Mass ratio] 17 mg/mg [facility] Laboratory - Coagulationon 0 06-06-2023 aPTT Coag (PPP) [Time] 41.[address] [facility] INR Coag (Bld) [Relative time] 2.5 {INR} High 0.9 - 1.[address] [facility] PT Coag (PPP) [Time] 26.7 s [address] [facility] Laboratory - Hematology and Cell countson 06-06-2023 Basophils (Bld) [#/Vol] 0.05 10*3/uL 0.00 - 0.09 K/uL [facility] Basophils/100 WBC (Bld) 0.3 % [facility] Differential cell count method Nom (Bld) Electronic Differential [facility] Eosinophils (Bld) [#/Vol] 0.07 10*3/uL 0.00 - 0.48 K/uL [facility] Eosinophils/100 WBC (Bld) 0.4 % [facility] Erythrocyte distribution width (RBC) [Ratio] 19.4 % High 10.9 - 14.3 % [facility] Hematocrit (Bld) [Volume fraction] 37.1 % Low 39.6 - 48.8 % [facility] Hemoglobin (Bld) [Mass/Vol] 11.5 g/dL Low 13.4 - 16.8 g/dL [facility] Immature granulocytes (Bld) [#/Vol] 0.33 10*3/uL High NINF - 0.07 K/uL [facility] Immature granulocytes/100 WBC (Bld) 2.0 % [facility] Lymphocytes (Bld) [#/Vol] 0.80 10*3/uL Low 0.83 - 3.57 K/uL [facility] Lymphocytes/100 WBC (Bld) 4.9 % [facility] MCH (RBC) [Entitic mass] 28.2 pg 26.1 - 33.[address] [facility] MCHC (RBC) [Mass/Vol] 31.0 g/dL Low 31.9 - 36.5 g/dL [facility] MCV (RBC) [Entitic vol] 90.9 fL 79.0 - 94.[address] [facility] Monocytes (Bld) [#/Vol] 1.50 10*3/uL High 0.24 - 0.93 K/uL [facility] Monocytes/100 WBC (Bld) 9.2 % [facility] Neutrophils (Bld) [#/Vol] 13.63 10*3/uL High 1.57 - 6.19 K/uL [facility] Nucleated RBC/100 WBC (Bld) [Ratio] 0.0 % NINF [facility] Platelet mean volume (Bld) [Entitic vol] 10.3 fL 8.7 - 12.[address] [facility] Platelets (Bld) [#/Vol] 250 10*3/uL 146 - 337 K/uL [facility] RBC (Bld) [#/Vol] 4.08 10*6/uL Low [facility] Segmented neutrophils/100 WBC (Bld) 83.2 % [facility] WBC (Bld) [#/Vol] 16.38 10*3/uL High 3.73 - 10 .10 K/uL [facility] No Panel Informationon 06-06 eGFR, CKD-EPI, Male 82 - PINF [facility] Comment on above: Reported eGFR is bas ed on the CKD-EPI 2020 equation using creatinine, age, and sex. Interpretation and review of laboratory results Normal [facility] Interpretation and review of laboratory results Abnormal [facility] Interpretation and review of laboratory results Abnormal [facility] Portable XR Chest Viewson Radiology Study observation (narrative) [facility] Progress Noteson 04-20-2021 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 Authentication Interface Message Text I evaluated Markus Nava during this telemedicine visit. I reviewed the resident's documentation. I agree with the resident's decision making as documented in the resident's note. Normal [facility] 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 Authentication Interface Message Text Normal [facility] Care Plan Noteon 04-05-2021 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 Authentication Interface Message Text Normal [facility] GLUCOSE, FINGERSTICK-IN OFFI CEon 04-05-2021 Glucose [Mass/Vol] 91 mg/dL Normal 80-116 [facility] Comment on above: Performed By: #### 8 0318 ####NURSING GLUCOSE [id number] [place], [address] PROTHROMBIN TIME AND INRon 1 06-05-2020 INR Coag (PPP) [Relative time] 3.52 {INR} High 0.90-1.10 [facility] Comment on above: Performed By: #### P T ####[facility] PATHOLOGY [id number] [place], [place], PT Coag (PPP) [Time] 38.6 s High 9.7-12.9 [facility] Comment on above: Performed By: #### P T ####S PATHOLOGY [id number] [place], [place], Progress Noteson 04-05-2021 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 Authentication Interface Message Text Normal [facility] 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 Authentication Interface Message Text Normal [facility] 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 Authentication Interface Message Text Normal [facility] Telephone Encounteron 2020 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 Authentication Interface Message Text Normal [facility] Care Plan Noteon 04-04-2021 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 Authentication Interface Message Text Normal [facility] Consultson 04-04-2021 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 Authentication Interface Message Text Normal [facility] 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 Authentication Interface Message Text Normal [facility] 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 Authentication Interface Message Text Normal [facility] 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 Authentication Interface Message Text Normal [facility] GLUCOSE, FINGERSTICK-IN OFFI CEon 04-04-2021 Glucose [Mass/Vol] 97 mg/dL Normal 80-116 [facility] Comment on above: Performed By: #### 8 2948 ####NURSING GLUCOSE [id number] [place], [address] Glucose [Mass/Vol] 100 mg/dL Normal 80-116 [facility] Comment on above: Performed By: #### 8 2948 ####NURSING GLUCOSE [id number] [place], [address] Glucose [Mass/Vol] 109 mg/dL Normal 80-116 [facility] Comment on above: Performed By: #### 8 2948 ####NURSING GLUCOSE [id number] [place], [address] Glucose [Mass/Vol] 97 mg/dL Normal 80-116 [facility] Comment on above: Performed By: #### 8 2948 ####NURSING GLUCOSE [id number] [place], [address] PROTHROMBIN TIME AND INRon 1 06-04-2020 INR Coag (PPP) [Relative time] 3.89 {INR} High 0.90-1.10 [facility] Comment on above: Performed By: #### P T ####S PATHOLOGY [id number] [place], [place], PT Coag (PPP) [Time] 42.6 s High 9.7-12.9 [facility] Comment on above: Performed By: #### P T ####S PATHOLOGY [id number] [place] [address], Progress Noteson 04-04-2021 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 Authentication Interface Message Text Normal [facility] Care Plan Noteon 04-03-2021 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 Authentication Interface Message Text Normal [facility] GLUCOSE, FINGERSTICK-IN OFFI CEon 04-03-2021 Glucose [Mass/Vol] 104 mg/dL Normal 80-116 [facility] Comment on above: Performed By: #### 8 2948 ####NURSING GLUCOSE [id number] [place], [address] Glucose [Mass/Vol] 102 mg/dL Normal 80-116 [facility] Comment on above: Performed By: #### 8 2948 ####NURSING GLUCOSE [id number] [place], [address] Glucose [Mass/Vol] 97 mg/dL Normal 80-116 [facility] Comment on above: Performed By: #### 8 2948 ####NURSING GLUCOSE [id number] [place], [address] PROTHROMBIN TIME AND INRon 1 INR Coag (PPP) [Relative time] 3.18 {INR} High 0.90-1.10 [facility] Comment on above: Performed By: #### P T ####S PATHOLOGY [id number] [place] [address], PT Coag (PPP) [Time] 34.9 s High 9.7-12.9 [facility] Comment on above: Performed By: #### P T ####S PATHOLOGY [id number] [place], [place], Care Plan Noteon 04-02-2021 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 Authentication Interface Message Text Normal [facility] Consultson 04-02-2021 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 Authentication Interface Message Text Normal [facility] GLUCOSE, FINGERSTICK-IN OFFI CEon 04-02-2021 Glucose [Mass/Vol] 121 mg/dL High 80-116 [facility] Comment on above: Performed By: #### 8 2948 ####NURSING GLUCOSE [id number] [place] [address], [address] Glucose [Mass/Vol] 99 mg/dL Normal 80-116 [facility] Comment on above: Result Comment: No A ction Performed By: #### 8 2948 ####NURSING GLUCOSE [id number] [place], [address] Glucose [Mass/Vol] 104 mg/dL Normal 80-116 [facility] Comment on above: Performed By: #### 8 2948 ####NURSING GLUCOSE [id number] [place] [address], [address] Glucose [Mass/Vol] 109 mg/dL Normal 80-116 [facility] Comment on above: Performed By: #### 8 2948 ####NURSING GLUCOSE [id number] [place], [address] PROTHROMBIN TIME AND INRon 1 INR Coag (PPP) [Relative time] 2.75 {INR} High 0.90-1.10 [facility] Comment on above: Performed By: #### P T ####S PATHOLOGY [id number] [place], [place], PT Coag (PPP) [Time] 30.8 s High 9.7-12.9 [facility] Comment on above: Performed By: #### P T ####S PATHOLOGY [id number] [place], [place], Progress Noteson 04-02-2021 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 Authentication Interface Message Text Normal [facility] Care Plan Noteon 04-01-2021 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 Authentication Interface Message Text Normal [facility] GLUCOSE, FINGERSTICK-IN OFFI CEon 04-01-2021 Glucose [Mass/Vol] 117 mg/dL High 80-116 [facility] Comment on above: Result Comment: Foll ow Protocol Performed By: #### 8 2948 ####NURSING GLUCOSE [id number] [place], [address] Glucose [Mass/Vol] 116 mg/dL Normal 80-116 [facility] Comment on above: Performed By: #### 8 2948 ####NURSING GLUCOSE [id number] [place], [address] Glucose [Mass/Vol] 99 mg/dL Normal 80-116 [facility] Comment on above: Result Comment: Foll ow Protocol Performed By: #### 8 2948 ####NURSING GLUCOSE [id number] [place], [address] Glucose [Mass/Vol] 106 mg/dL Normal 80-116 [facility] Comment on above: Performed By: #### 8 2948 ####NURSING GLUCOSE [id number] [place], [address] PROTHROMBIN TIME AND INRon 1 INR Coag (PPP) [Relative time] 2.37 {INR} High 0.90-1.10 [facility] Comment on above: Performed By: #### P T ####[facility] [id number] [place] [address], PT Coag (PPP) [Time] 26.5 s High 9.7-12.9 [facility] Comment on above: Performed By: #### P T ####S PATHOLOGY [id number] [place] [address], Progress Noteson 04-01-2021 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 Authentication Interface Message Text Normal [facility] 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 Authentication Interface Message Text Normal [facility] Treatment Plan Noteon 2020 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 Authentication Interface Message Text Normal [facility] BASIC METABOLIC PANELon 03-05 Anion gap [Moles/Vol] 12 mmol/L Normal 10-20 [facility] Comment on above: Performed By: #### C H8 ####[facility] PATH[facility] [id number] [place] [address], Calcium [Mass/Vol] 8.4 mg/dL Normal 8.4-10.4 [facility] Comment on above: Performed By: #### C H8 ####S PATHOLOGY [id number] [place], [place], Chloride [Moles/Vol] 101 mmol/L Normal 97-111 [facility] Comment on above: Performed By: #### C H8 ####S PATHOLOGY [id number] [place], [place], CO2 [Moles/Vol] 25 mmol/L Normal 21-30 [facility] Comment on above: Performed By: #### C H8 ####[facility] PATHOLOGY [id number] [place], [place], Creatinine [Mass/Vol] 1.04 mg/dL Normal 0.80-1.30 [facility] Comment on above: Performed By: #### C H8 ####[facility] CENTER PATHOLOGY [id number] [place] [address], ESTIMATED GFR (CKD-EPI) 70 mL/min/1.73sqm Normal >=60 [facility] Comment on above: Performed By: #### C H8 ####S PATHOLOGY VKOTKODFHG2359 [place], [place], Glucose [Mass/Vol] 88 mg/dL Normal 80-116 [facility] Comment on above: Performed By: #### C H8 ####S PATHOLOGY INXSCLZPAN9979 [place], Potassium [Moles/Vol] 4.8 mmol/L Normal 3.3-5.3 [facility] Comment on above: Performed By: #### C H8 ####S PATHOLOGY NDVACGYGAT2210 [place], Sodium [Moles/Vol] 133 mmol/L Low 135-148 [facility] Comment on above: Performed By: #### C H8 ####S PATHOLOGY DBUWGMWVDV0027 [place], Urea nitrogen [Mass/Vol] 22 mg/dL Normal 8-22 [facility] Comment on above: Performed By: #### C H8 ####[facility] PATHOLOGY [id number] [place], [place], CBC WITH DIFFERENTIALon 03-05 Basophils (Bld) [#/Vol] 0.06 10*3/uL Normal 0.00-0.[address] [facility] Comment on above: Performed By: #### C BCDSAT ####[facility] PATHOLOGY YOVRQUOEEQ6081 [place], Basophils/100 WBC (Bld) 0.7 % Normal <=1.[address] [facility] Comment on above: Performed By: #### C BCDSAT ####[facility] PATHOLOGY LZDFHCYXSY2311 [place], Eosinophils (Bld) [#/Vol] 0.41 10*3/uL Normal 0.00-0.[address] [facility] Comment on above: Performed By: #### C BCDSAT ####[facility] PATHOLOGY NU[address]NIV[address] [place] [address], Eosinophils/100 WBC (Bld) 4.7 % High 0.1-4.[address] [facility] [facility] Comment on above: Performed By: #### C BCDSAT ####[facility] PATHOLOGY [id number] [place] [address], Erythrocyte distribution width (RBC) [Ratio] 15.7 % High 11.5-14.[address] [facility] Comment on above: Performed By: #### C BCDSAT ####[facility] PATHOLOGY IVIRFWJFKQ[address] [place] [address], Hematocrit (Bld) [Volume fraction] 28.9 % Low 41.0-53.[address] [facility] [facility] Comment on above: Performed By: #### C BCDSAT ####[facility] PATHOLOGY [id number] [place], Hemoglobin (Bld) [Mass/Vol] 9.6 g/dL Low 13.9-16.[address] [facility] Comment on above: Performed By: #### C BCDSAT ####[facility] PATHOLOGY BDWICGRHMX[address] [place] [address], Lymphocytes (Bld) [#/Vol] 1.14 10*3/uL Normal 1.00-4.80 [facility] Comment on above: Performed By: #### Deborah GAMEZAT ####[facility] PATHOLOGY [id number] [place] [address], Lymphocytes/100 WBC (Bld) 12.8 % Low 24.0-44.[address] [facility] Comment on above: Performed By: #### Deborah GAMEZAT ####[facility] PATHOLOGY [id number] [place] [address], MCH (RBC) [Entitic mass] 31.5 pg Normal 26.0-34.[address] [facility] Comment on above: Performed By: #### Deborah GAMEZAT ####[facility] PATHOLOGY [id number] [place] [address], MCHC (RBC) [Mass/Vol] 33.3 g/dL Normal 32.0-35.9 [facility] Comment on above: Performed By: #### Deborah GAMEZAT ####[facility] PATHOLOGY [id number] [place] [address], MCV (RBC) [Entitic vol] 95 fL Normal 80-100 [facility] Comment on above: Performed By: #### Deborah GAMEZAT ####[facility] PATHOLOGY [id number] [place] [address], MONOCYTE DISTRIBUTION WIDTH Normal [facility] Comment on above: Performed By: #### Deborah GAMEZAT ####[facility] PATHOLOGY [id number] [place] [address], Monocytes (Bld) [#/Vol] 0.95 10*3/uL Normal 0.20-1.00 [facility] Comment on above: Performed By: #### Deborah GAMEZAT ####[facility] PATHOLOGY [id number] [place] [address], Monocytes/100 WBC (Bld) 10.7 % Normal 2.0-11.0 [facility] Comment on above: Performed By: #### Deborah GAMEZAT ####[facility] PATHOLOGY UUDVQZXITG4413 [place], Neutrophils (Bld) [#/Vol] 6.32 10*3/uL Normal 1.50-8.00 [facility] Comment on above: Performed By: #### Deborah GAMEZAT ####[facility] PATHOLOGY [id number] [place], Neutrophils/100 WBC (Bld) 71.2 % Normal 31.0-76.0 [facility] Comment on above: Performed By: #### Deborah GAMEZAT ####[facility] PATHOLOGY GUVBRKULPV9986 [place], Platelet mean volume (Bld) [Entitic vol] 9.5 fL Normal 7.5-11.2 [facility] Comment on above: Performed By: #### Deborah GAMEZAT ####[facility] PATHOLOGY [id number] [place], Platelets (Bld) [#/Vol] 346 10*3/uL Normal 150-400 [facility] Comment on above: Performed By: #### Deborah GAMEZAT ####[facility] PATHOLOGY [id number] [place], RBC (Bld) [#/Vol] 3.06 10*6/uL Low 4.50-5.90 [facility] Comment on above: Performed By: #### Deborah GAMEZAT ####[facility] PATHOLOGY SROWSTSTLQ7988 [place], WBC (Bld) [#/Vol] 8.9 10*3/uL Normal 4.5-11.5 [facility] Comment on above: Performed By: #### Deborah GAMEZAT ####[facility] PATHOLOGY QAYKXFUSJN4246 [place], Care Plan Noteon 03-31-2021 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 Authentication Interface Message Text Normal [facility] Consultson 03-31-2021 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 Authentication Interface Message Text Normal [facility] 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 Authentication Interface Message Text Normal [facility] GLUCOSE, FINGERSTICK-IN OFFI CEon 03-31-2021 Glucose [Mass/Vol] 133 mg/dL High 80-116 [facility] Comment on above: Performed By: #### 8 2948 ####NURSING GLUCOSE CHNPXSW1164 [place], [address] Glucose [Mass/Vol] 102 mg/dL Normal 80-116 [facility] Comment on above: Performed By: #### 8 2948 ####NURSING GLUCOSE XDRHLAP0531 [place], [address] Glucose [Mass/Vol] 116 mg/dL Normal 80-116 [facility] Comment on above: Performed By: #### 8 2948 ####NURSING GLUCOSE RKZOXTS4552 [place], [address] Glucose [Mass/Vol] 122 mg/dL High 80-116 [facility] Comment on above: Performed By: #### 8 2948 ####NURSING GLUCOSE OEHLKBF[address] [place] [address], [address] HEMOGLOBIN A1Con 03-31-2021 Glucose [Mass/Vol] 134 mg/dL Normal [facility] Comment on above: Order Comment: HbA1c of 5.7-6.4% have increased risk for diabetes and CV(Source :ADA 2014 Standard of Medical Care in Diabetes) Performed By: #### H B A1C ####S PATHOLOGY CIOANQLBQN[address] [place] [address], HbA1c (Bld) [Mass fraction] 6.3 % High 4.0-5.6 [facility] Comment on above: Order Comment: HbA1c of 5.7-6.4% have increased risk for diabetes and CV(Source :ADA 2014 Standard of Medical Care in Diabetes) Performed By: #### H B A1C ####S PATHOLOGY XPEY[address]MUQZ[address] [place] [address], PROTHROMBIN TIME AND INRon 1 INR Coag (PPP) [Relative time] 2.01 {INR} High 0.90-1.10 [facility] Comment on above: Performed By: #### P T ####[facility] PATH[facility] ZLXLUZPXWR[address] [place] [address], PT Coag (PPP) [Time] 22.6 s High 9.7-12.9 [facility] Comment on above: Performed By: #### P T ####[facility] PATH[facility]Y [address]FZKAHC[address] [place] [address], Progress Noteson 03-31-2021 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 Authentication Interface Message Text Normal [facility] 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 Authentication Interface Message Text Normal [facility] 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 Authentication Interface Message Text Normal [facility] 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 Authentication Interface Message Text Normal [facility] VITAMIN D, 25-HYDROXYon 10-2 VITD25 24.2 ng/mL Low 30.0-100.0 [facility] Comment on above: Performed By: #### V ITD25 ####[facility] PATH[facility] EFQYCOBYRU8472 [place], Care Plan Noteon 03-30-2021 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 Authentication Interface Message Text Normal [facility] Consultson 03-30-2021 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 Authentication Interface Message Text Consult request received. Patient will be seen for rehab psych consult, ideally on 03/30/21. Shantal Sims, PhD Normal [facility] 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 Authentication Interface Message Text Normal [facility] 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 Authentication Interface Message Text Normal [facility] 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 Authentication Interface Message Text Normal [facility] GLUCOSE, FINGERSTICK-IN OFFI CEon 03-30-2021 Glucose [Mass/Vol] 116 mg/dL Normal 80-116 [facility] Comment on above: Performed By: #### 8 2948 ####NURSING GLUCOSE TCFOFQT8229 [place], [address] Glucose [Mass/Vol] 129 mg/dL High 80-116 [facility] Comment on above: Performed By: #### 8 2948 ####NURSING GLUCOSE FLFZTMY2670 [place], [address] Glucose [Mass/Vol] 108 mg/dL Normal 80-116 [facility] Comment on above: Result Comment: Foll ow Protocol Performed By: #### 8 2948 ####NURSING GLUCOSE KSKSMTB2333 [place], [address] Glucose [Mass/Vol] 112 mg/dL Normal 80-116 [facility] Comment on above: Result Comment: Salvador jovel RN, APN, MD Performed By: #### 8 2948 ####NURSING GLUCOSE UYPQVIR2897 [place], [address] Glucose [Mass/Vol] 116 mg/dL Normal 80-116 [facility] Comment on above: Performed By: #### 8 2948 ####NURSING GLUCOSE IGPXUOH2439 [place], [address] PROTHROMBIN TIME AND INRon 1 INR Coag (PPP) [Relative time] 2.05 {INR} High 0.90-1.10 [facility] Comment on above: Performed By: #### P T ####[facility] PATH[facility] JQHUVNFTEV8741 [place], PT Coag (PPP) [Time] 23.0 s High 9.7-12.9 [facility] Comment on above: Performed By: #### P T ####[facility] PATH[facility] TLWNXRJRCB9025 [place], Progress Noteson 03-30-2021 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 Authentication Interface Message Text Normal [facility] 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 Authentication Interface Message Text Normal [facility] 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 Authentication Interface Message Text Normal [facility] Care Plan Noteon 03-29-2021 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 Authentication Interface Message Text Normal [facility] Consultson 03-29-2021 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 Authentication Interface Message Text Normal [facility] 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 Authentication Interface Message Text Normal [facility] 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 Authentication Interface Message Text Normal [facility] Discharge Planning Noteon 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 Authentication Interface Message Text Normal [facility] 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 Authentication Interface Message Text Normal [facility] FL MODIFIED BARIUM SWALLOWon 03-29-2021 FL MODIFIED BARIUM SWALLOW Normal [facility] GLUCOSE, FINGERSTICK-IN OFFI CEon 03-29-2021 Glucose [Mass/Vol] 128 mg/dL High 80-116 [facility] Comment on above: Performed By: #### 8 2948 ####NURSING GLUCOSE ISCKYYP3248 [place], [address] Glucose [Mass/Vol] 97 mg/dL Normal 80-116 [facility] Comment on above: Performed By: #### 8 2948 ####NURSING GLUCOSE ERSYWTE9704 [place], [address] Glucose [Mass/Vol] 134 mg/dL High 80-116 [facility] Comment on above: Performed By: #### 8 2948 ####NURSING GLUCOSE ATKAVCL0117 [place], [address] Glucose [Mass/Vol] 135 mg/dL High 80-116 [facility] Comment on above: Performed By: #### 8 2948 ####NURSING GLUCOSE HPIZWCH7765 [place], [address] H AND Josue 03-29-2021 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 Authentication Interface Message Text Normal [facility] Progress Noteson 03-29-2021 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 Authentication Interface Message Text Normal [facility] 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 Authentication Interface Message Text Normal [facility] 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 Authentication Interface Message Text Normal [facility] 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 Authentication Interface Message Text Normal [facility] 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 Authentication Interface Message Text This RN and CCP unable to obtain AM labs on PT. PT extremely difficult stick and will not have anyone else try. This RN notified Dr. Jolly and will notify day shift to have IV team attempt. Normal The [facility] BASIC METABOLIC PANELon 03-05 Anion gap [Moles/Vol] 13 mmol/L Normal 10-20 [facility] Comment on above: Performed By: #### Deborah H8, MG ####[facility] PATH[facility] FNMCWMQHVK0855 [place], Calcium [Mass/Vol] 8.2 mg/dL Low 8.4-10.4 [facility] Comment on above: Performed By: #### Deborah H8, MG ####[facility] PATH[facility]Y NQTLDVYTQH5142 [place], Chloride [Moles/Vol] 105 mmol/L Normal 97-111 [facility] Comment on above: Performed By: #### Deborah H8, MG ####[facility] PATH[facility]Y XLUBCXWRAM7545 [place], CO2 [Moles/Vol] 21 mmol/L Normal 21-30 [facility] Comment on above: Performed By: #### Deborah H8, MG ####[facility] PATHOLOGY ZCFWUNSJOI0232 [place], Creatinine [Mass/Vol] 1.09 mg/dL Normal 0.80-1.30 [facility] Comment on above: Performed By: #### C H8, MG ####[facility] PATH[facility]Y OOZLSRUWNU4372 [place], ESTIMATED GFR (CKD-EPI) 66 mL/min/1.73sqm Normal >=60 [facility] Comment on above: Performed By: #### C H8, MG ####[facility] PATH[facility]Y IVSDFIVEIN7320 [place], Glucose [Mass/Vol] 120 mg/dL High 80-116 [facility] Comment on above: Performed By: #### C H8, MG ####[facility] PATHOLOGY DUYRZOXIZJ9960 [place], Potassium [Moles/Vol] 4.8 mmol/L Normal 3.3-5.3 [facility] Comment on above: Result Comment: Hemo lysis present Performed By: #### C H8, MG ####[facility] PATH[facility]Y CIGQKFQUYZ1065 [place], Sodium [Moles/Vol] 134 mmol/L Low 135-148 [facility] Comment on above: Performed By: #### C H8, MG ####[facility] PATHOLOGY TNIFAQCLOZ5174 [place], Urea nitrogen [Mass/Vol] 18 mg/dL Normal 8-22 [facility] Comment on above: Performed By: #### C H8, MG ####[facility] PATHOLOGY NNSIGGASYO1469 [place], Care Plan Noteon 03-28-2021 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 Authentication Interface Message Text Normal [facility] Consultson 03-28-2021 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 Authentication Interface Message Text Normal [facility] 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 Authentication Interface Message Text Normal [facility] 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 Authentication Interface Message Text Normal [facility] GLUCOSE, FINGERSTICK-IN OFFI CEon 03-28-2021 Glucose [Mass/Vol] 100 mg/dL Normal 80-[address] [facility] Comment on above: Performed By: #### 8 2948 ####NURSING GLUCOSE SIFGSQI8112 [place], Glucose [Mass/Vol] 89 mg/dL Normal 80-116 [facility] Comment on above: Performed By: #### 8 2948 ####NURSING GLUCOSE ZSHENYL3370 [place], Glucose [Mass/Vol] 163 mg/dL High 80-116 [facility] Comment on above: Performed By: #### 8 2948 ####NURSING GLUCOSE WSPVTIM9348 [place], MAGNESIUMon 03-28-2021 Magnesium [Mass/Vol] 2.2 mg/dL Normal 1.6-2.8 [facility] Comment on above: Result Comment: Hemo lysis present Performed By: #### C H8, MG ####[facility] PATH[facility] YZBTBNVNHO7926 [place], PROTHROMBIN TIME AND INRon 1 INR Coag (PPP) [Relative time] 1.53 {INR} High 0.90-1.10 [facility] Comment on above: Performed By: #### P T ####[facility] PATHOLOG[facility] KKIFLYGCWQ8867 [place], PT Coag (PPP) [Time] 17.2 s High 9.7-12.9 [facility] Comment on above: Performed By: #### P T ####[facility] PATHOLOG[facility] RUHVWVKDCJ7614 [place], Progress Noteson 03-28-2021 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 Authentication Interface Message Text Dr. Munoz notified unable to collect ordered CBC multiple staff attempts to obtain unsuccessful. PICC positional not providing adequate blood return MD aware. Will continue to monitor. Normal [facility] 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 Authentication Interface Message Text Normal [facility] BASIC METABOLIC PANELon 03-05 Anion gap [Moles/Vol] 15 mmol/L Normal 10-[address] [facility] [facility] Comment on above: Performed By: #### C H8, HEPATIC, MG ####[facility] PATHOLOG[facility] LNDIPXOPNY0278 [place], Calcium [Mass/Vol] 8.3 mg/dL Low 8.4-10.4 [facility] Comment on above: Performed By: #### C H8, HEPATIC, MG ####[facility] PATHOLOGY MSTDJIFQXW9585 [place], Chloride [Moles/Vol] 101 mmol/L Normal 97-111 [facility] Comment on above: Performed By: #### Deborah Jeronimo, HEPATIC, MG ####[facility] PATHOLOG[facility] LULBBGEQSN8672 [place], CO2 [Moles/Vol] 25 mmol/L Normal 21-30 [facility] Comment on above: Performed By: #### Deborah Jeronimo, HEPATIC, MG ####[facility] PATHOLOGY UFSHZUZOLJ8070 [place], Creatinine [Mass/Vol] 1.20 mg/dL Normal 0.80-1.30 [facility] Comment on above: Performed By: #### Deborah Jeronimo, HEPATIC, MG ####[facility] PATHOLOGY LDWWMHOHJX9850 [place], ESTIMATED GFR (CKD-EPI) 59 mL/min/1.73sqm Low >=60 [facility] Comment on above: Performed By: #### Deborah Jeronimo, HEPATIC, MG ####[facility] PATHOLOGY WGXCEIAXHI9463 [place], Glucose [Mass/Vol] 128 mg/dL High 80-116 [facility] Comment on above: Performed By: #### Deborah Jeronimo, HEPATIC, MG ####[facility] PATHOLOGY EIFEXPLAHD5599 [place], Potassium [Moles/Vol] 4.2 mmol/L Normal 3.3-5.3 [facility] Comment on above: Performed By: #### Deborah Jeronimo, HEPATIC, MG ####[facility] PATHOLOGY RCDRLBGLSS3839 [place], Sodium [Moles/Vol] 137 mmol/L Normal 135-148 [facility] Comment on above: Performed By: #### Deborah Jeronimo, HEPATIC, MG ####[facility] PATHOLOGY IGDTPBYBXF3352 [place], Urea nitrogen [Mass/Vol] 23 mg/dL High 8-22 [facility] Comment on above: Performed By: #### Deborah Jeronimo, HEPATIC, MG ####[facility] PATH[facility] BKRNFMKYXK5941 [place], CBC WITH DIFFERENTIALon 03-05 Basophils (Bld) [#/Vol] 0.10 10*3/uL Normal 0.00-0.20 [facility] Comment on above: Performed By: #### C BCDSAT ####[facility] PATHOLOGY IIETEREWTM2883 [place], Basophils/100 WBC (Bld) 1.1 % Normal <=1.9 [facility] Comment on above: Performed By: #### C BCDSAT ####[facility] PATHOLOGY MUUAWPKZZO6860 [place], Eosinophils (Bld) [#/Vol] 0.28 10*3/uL Normal 0.00-0.70 [facility] Comment on above: Performed By: #### C BCDSAT ####[facility] PATHOLOGY UYDXCXYVAC[address] [place] [address], Eosinophils/100 WBC (Bld) 2.9 % Normal 0.1-4.0 [facility] Comment on above: Performed By: #### C BCDSAT ####[facility] PATHOLOGY QVWPMNNAAI1568 [place], Erythrocyte distribution width (RBC) [Ratio] 14.2 % Normal 11.5-14.5 [facility] Comment on above: Performed By: #### C BCDSAT ####[facility] PATHOLOGY KMIITNJIGK4604 [place], Hematocrit (Bld) [Volume fraction] 25.6 % Low 41.0-53.0 [facility] Comment on above: Performed By: #### C BCDSAT ####[facility] PATHOLOGY TNYSPQUHIG3820 [place], Hemoglobin (Bld) [Mass/Vol] 8.6 g/dL Low 13.9-16.3 [facility] Comment on above: Performed By: #### C BCDSAT ####[facility] PATHOLOGY CCJTTSINUL0317 [place], Lymphocytes (Bld) [#/Vol] 0.92 10*3/uL Low 1.00-4.80 [facility] Comment on above: Performed By: #### C BCDSAT ####[facility] PATHOLOGY IICVWXFZCZ0521 [place], Lymphocytes/100 WBC (Bld) 9.2 % Low 24.0-44.0 [facility] Comment on above: Performed By: #### C BCDSAT ####[facility] PATHOLOGY HTOYAGLVHL4978 [place], MCH (RBC) [Entitic mass] 31.1 pg Normal 26.0-34.0 [facility] Comment on above: Performed By: #### C BCDSAT ####[facility] PATHOLOGY FVOKUYELAY5911 [place], MCHC (RBC) [Mass/Vol] 33.5 g/dL Normal 32.0-35.9 [facility] Comment on above: Performed By: #### C BCDSAT ####[facility] PATHOLOGY BBTELFXDHY[address] [place] [address], MCV (RBC) [Entitic vol] 93 fL Normal 80-100 [facility] Comment on above: Performed By: #### C BCDSAT ####[facility] PATHOLOGY BISETQUVQY5800 [place], MONOCYTE DISTRIBUTION WIDTH Normal [facility] Comment on above: Performed By: #### C BCDSAT ####[facility] PATHOLOGY [id number] [place], Monocytes (Bld) [#/Vol] 1.14 10*3/uL High 0.20-1.00 [facility] Comment on above: Performed By: #### C BCDSAT ####[facility] PATHOLOGY EOOOCAGHWK5381 [place], Monocytes/100 WBC (Bld) 11.4 % High 2.0-11.0 [facility] Comment on above: Performed By: #### C BCDSAT ####[facility] PATHOLOGY GDEHCAIBTA0709 [place], Neutrophils (Bld) [#/Vol] 7.50 10*3/uL Normal 1.50-8.00 [facility] Comment on above: Performed By: #### C BCDSAT ####[facility] PATHOLOGY ZVHMTTJQIL7984 [place], Neutrophils/100 WBC (Bld) 75.4 % Normal 31.0-76.0 [facility] Comment on above: Performed By: #### C HUMERADSAT ####[facility] PATHOLOGY EZIAETTPTN6441 [place], Platelet mean volume (Bld) [Entitic vol] 9.3 fL Normal 7.5-11.2 [facility] Comment on above: Performed By: #### Deborah GAMEZAT ####[facility] PATHOLOGY [id number] [place], Platelets (Bld) [#/Vol] 292 10*3/uL Normal 150-400 [facility] Comment on above: Performed By: #### Deborah GAMEZAT ####[facility] PATHOLOGY [id number] [place] [address], RBC (Bld) [#/Vol] 2.75 10*6/uL Low 4.50-5.90 [facility] Comment on above: Performed By: #### Deborah GAMEZAT ####S PATHOLOGY DCOKEOQWGM6339 [place], WBC (Bld) [#/Vol] 9.9 10*3/uL Normal 4.5-11.5 [facility] Comment on above: Performed By: #### Deborah GAMEZAT ####S PATHOLOGY JZCPBVJVKK0511 [place], GLUCOSE, FINGERSTICK-IN OFFI CEon 03-27-2021 Glucose [Mass/Vol] 131 mg/dL High 80-116 [facility] Comment on above: Performed By: #### 8 2948 ####NURSING GLUCOSE KELSWJV6734 [place], [place], Glucose [Mass/Vol] 138 mg/dL High 80-[address] [facility] Comment on above: Performed By: #### 8 2948 ####NURSING GLUCOSE WVAEKRA4578 [place], [address] HEPATIC FUNCTION PANELon Albumin [Mass/Vol] 2.7 g/dL Low 3.4-5.1 [facility] Comment on above: Performed By: #### Deborah Jeronimo, HEPATIC, MG ####S PATHOLOGY [id number] [place], [place], ALK 102 IU/L Normal 40-200 [facility] Comment on above: Performed By: #### Deborah Jeronimo, HEPATIC, MG ####[facility] [id number] [place], ALT [Catalytic activity/Vol] 51 U/L High 7-40 [facility] Comment on above: Performed By: #### Deborah Jeronimo, HEPATIC, MG ####[facility] PATH[facility]Y EMSMJWVLAF9053 [place], AST [Catalytic activity/Vol] 44 U/L High 7-40 [facility] Comment on above: Performed By: #### Deborah Jeronimo, HEPATIC, MG ####S PATHOLOGY JKMEQDUAXD2199 [place], Bilirubin [Mass/Vol] 1.2 mg/dL Normal 0.1-1.5 [facility] Comment on above: Performed By: #### Deborah Jeronimo, HEPATIC, MG ####[facility] PATH[facility] QZYLAYBLCH9368 [place], Bilirubin.direct [Mass/Vol] 0.40 mg/dL High 0.10-0.[address] [facility] Comment on above: Performed By: #### Deborah Jeronimo, HEPATIC, MG ####[facility] PATH[facility] HUXDZTMELV6075 [place], Protein [Mass/Vol] 6.3 g/dL Normal 5.7-8.1 [facility] Comment on above: Performed By: #### Deborah Jeronimo, HEPATIC, MG ####[facility] PATH[facility] VDHGOJQFRR2030 [place], MAGNESIUMon 03-27-2021 Magnesium [Mass/Vol] 2.4 mg/dL Normal 1.6-2.8 [facility] Comment on above: Performed By: #### Deborah Willoughby8, HEPATIC, MG ####[facility] PATHOLOGY [id number] [place], PROTHROMBIN TIME AND INRon 1 INR Coag (PPP) [Relative time] 1.47 {INR} High 0.90-1.10 [facility] Comment on above: Performed By: #### P T ####[facility] PATHOLOGY [id number] [place], PT Coag (PPP) [Time] 16.6 s High 9.7-12.9 [facility] Comment on above: Performed By: #### P T ####[facility] PATHOLOGY BLSOFQPBHX[address] [place] [address], Progress Noteson 03-27-2021 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 Authentication Interface Message Text Normal [facility] CBC WITH DIFFERENTIALon 03-05 Basophils (Bld) [#/Vol] 0.09 10*3/uL Normal 0.00-0.20 [facility] Comment on above: Performed By: #### C BCDSAT ####[facility] PATHOLOGY [id number] [place] [address], Basophils/100 WBC (Bld) 0.7 % Normal <=1.9 [facility] Comment on above: Performed By: #### C BCDSAT ####[facility] PATHOLOGY [id number] [place], Eosinophils (Bld) [#/Vol] 0.25 10*3/uL Normal 0.00-0.70 [facility] Comment on above: Performed By: #### C BCDSAT ####[facility] PATHOLOGY [id number] [place] [address], Eosinophils/100 WBC (Bld) 1.9 % Normal 0.1-4.0 [facility] Comment on above: Performed By: #### C BCDSAT ####S PATHOLOGY FNREELLVBW4443 [place], Erythrocyte distribution width (RBC) [Ratio] 14.4 % Normal 11.5-14.5 [facility] Comment on above: Performed By: #### C BCDSAT ####[facility] PATHOLOGY [id number] [place], Hematocrit (Bld) [Volume fraction] 25.3 % Low 41.0-53.0 [facility] Comment on above: Performed By: #### C BCDSAT ####[facility] PATHOLOGY [id number] [place], Hemoglobin (Bld) [Mass/Vol] 8.4 g/dL Low 13.9-16.3 [facility] Comment on above: Performed By: #### C BCDSAT ####[facility] PATHOLOGY QHXESXKUKZ2248 [place], Lymphocytes (Bld) [#/Vol] 0.98 10*3/uL Low 1.00-4.80 [facility] Comment on above: Performed By: #### C BCDSAT ####[facility] PATHOLOGY [id number] [place] [address], Lymphocytes/100 WBC (Bld) 7.6 % Low 24.0-44.0 [facility] Comment on above: Performed By: #### C BCDSAT ####[facility] PATHOLOGY FNKIGMOGNS9496 [place], MCH (RBC) [Entitic mass] 31.1 pg Normal 26.0-34.0 [facility] Comment on above: Performed By: #### C BCDSAT ####[facility] PATHOLOGY [id number] [place], MCHC (RBC) [Mass/Vol] 33.3 g/dL Normal 32.0-35.9 [facility] Comment on above: Performed By: #### C BCDSAT ####[facility] PATHOLOGY TIPVMUMZBW6232 [place], MCV (RBC) [Entitic vol] 93 fL Normal 80-100 [facility] Comment on above: Performed By: #### C BCDSAT ####[facility] PATHOLOGY IIRPVEXOTM3235 [place], MONOCYTE DISTRIBUTION WIDTH Normal [facility] Comment on above: Performed By: #### C BCMARIAMAAT ####[facility] PATHOLOGY [id number] [place], Monocytes (Bld) [#/Vol] 1.53 10*3/uL High 0.20-1.00 [facility] Comment on above: Performed By: #### C BCDSAT ####[facility] PATHOLOGY UGCMUGXFOK6622 [place], Monocytes/100 WBC (Bld) 11.9 % High 2.0-11.0 [facility] Comment on above: Performed By: #### C BCDSAT ####[facility] PATHOLOGY GJASZRLRUY0716 [place], Neutrophils (Bld) [#/Vol] 10.02 10*3/uL High 1.50-8.[address] [facility] Comment on above: Performed By: #### C BCDSAT ####[facility] PATHOLOGY BBBESOCADT5078 [place], Neutrophils/100 WBC (Bld) 77.9 % High 31.0-76.[address] [facility] Comment on above: Performed By: #### C BCDSAT ####[facility] PATHOLOGY GUWKLKSIWJ8790 [place], Platelet mean volume (Bld) [Entitic vol] 9.2 fL Normal 7.5-11.[address] [facility] Comment on above: Performed By: #### C BCDSAT ####[facility] PATHOLOGY CJGKEUPOON0238 [place], Platelets (Bld) [#/Vol] 282 10*3/uL Normal 150-[address] [facility] Comment on above: Performed By: #### C BCDSAT ####[facility] PATHOLOGY UAJGRJWRSC0002 [place], RBC (Bld) [#/Vol] 2.71 10*6/uL Low 4.50-5.[address] [facility] Comment on above: Performed By: #### C BCDSAT ####[facility] PATHOLOGY [id number] [place], WBC (Bld) [#/Vol] 12.9 10*3/uL High 4.5-11.5 [facility] Comment on above: Performed By: #### Deborah GAMEZAT ####[facility] PATHOLOGY [id number] [place] [address], Basophils (Bld) [#/Vol] 0.08 10*3/uL Normal 0.00-0.20 [facility] Comment on above: Performed By: #### Deborah GAMEZAT ####[facility] PATHOLOGY DBLNCCRVHQ[address] [place] [address], Basophils/100 WBC (Bld) 0.6 % Normal <=1.9 [facility] Comment on above: Performed By: #### Deborah GAMEZAT ####[facility] PATHOLOGY LVPUAWPRCG22[address] [place] [address], Eosinophils (Bld) [#/Vol] 0.24 10*3/uL Normal 0.00-0.70 [facility] Comment on above: Performed By: #### Deborah GAMEZAT ####[facility] PATHOLOGY NIWNYKWSML[address] [place] [address], Eosinophils/100 WBC (Bld) 2.0 % Normal 0.1-4.0 [facility] Comment on above: Performed By: #### Deborah GAMEZAT ####[facility] PATHOLOGY OXVTQNAOBO[address] [place] [address], Erythrocyte distribution width (RBC) [Ratio] 14.4 % Normal 11.5-14.5 [facility] Comment on above: Performed By: #### Deborah GAMEZAT ####[facility] PATHOLOGY YEUIEWBXBH3[address] [place] [address], Hematocrit (Bld) [Volume fraction] 27.1 % Low 41.0-53.0 [facility] Comment on above: Performed By: #### Deborah GAMEZAT ####[facility] PATHOLOGY THSMRBJFOK8[address] [place] [address], Hemoglobin (Bld) [Mass/Vol] 9.0 g/dL Low 13.9-16.3 [facility] Comment on above: Performed By: #### Deborah GAMEZAT ####[facility] PATHOLOGY SWKEPRUCZJ6542 [place], Lymphocytes (Bld) [#/Vol] 0.92 10*3/uL Low 1.00-4.80 [facility] Comment on above: Performed By: #### Deborah GRUBBSDSAT ####[facility] PATHOLOGY CXBURRTUTS89[address] [place] [address], Lymphocytes/100 WBC (Bld) 7.6 % Low 24.0-44.0 [facility] Comment on above: Performed By: #### C HUMERADSAT ####[facility] PATHOLOGY VPEAWNIYUC37[address] [place] [address], MCH (RBC) [Entitic mass] 31.1 pg Normal 26.0-34.0 [facility] Comment on above: Performed By: #### Deborah GAMEZAT ####[facility] PATHOLOGY YESGILVYJE68[address] [place] [address], MCHC (RBC) [Mass/Vol] 33.1 g/dL Normal 32.0-35.9 [facility] Comment on above: Performed By: #### C VERAAT ####[facility] PATHOLOGY OUEXNKJCAJ713[address] [place] [address], MCV (RBC) [Entitic vol] 94 fL Normal 80-100 [facility] Comment on above: Performed By: #### Deborah GAEMZAT ####[facility] PATHOLOGY VFTFWSPHVK[address] [place] [address], MONOCYTE DISTRIBUTION WIDTH Normal [facility] Comment on above: Performed By: #### Deborah GAMEZAT ####[facility] PATHOLOGY GKPRVMAPFC[address] [place] [address], Monocytes (Bld) [#/Vol] 1.16 10*3/uL High 0.20-1.00 [facility] Comment on above: Performed By: #### Deborah GAMEZAT ####[facility] PATHOLOGY AUMTOGNPEU7[address] [place] [address], Monocytes/100 WBC (Bld) 9.6 % Normal 2.0-11.0 [facility] Comment on above: Performed By: #### Deborah GAMEZAT ####[facility] PATH[facility] TWCCTEJNYW9069 [place], Neutrophils (Bld) [#/Vol] 9.73 10*3/uL High 1.50-8.00 [facility] Comment on above: Performed By: #### Deborah BCDSAT ####[facility] PATHOLOGY MVMTMPYBAN4685 [place], Neutrophils/100 WBC (Bld) 80.3 % High 31.0-76.[address] [facility] Comment on above: Performed By: #### C BCDSAT ####[facility] PATHOLOGY TZMYMUPHUR3823 [place], Platelet mean volume (Bld) [Entitic vol] 9.7 fL Normal 7.5-11.[address] [facility] Comment on above: Performed By: #### C BCDSAT ####[facility] PATHOLOGY AQJIHWCNYX4909 [place], Platelets (Bld) [#/Vol] 285 10*3/uL Normal 150-[address] [facility] Comment on above: Performed By: #### C BCDSAT ####[facility] PATHOLOGY [id number] [place], RBC (Bld) [#/Vol] 2.89 10*6/uL Low 4.50-5.90 [facility] Comment on above: Performed By: #### Deborah BCDSAT ####[facility] PATHOLOGY JPEIAIVASH6129 [place], WBC (Bld) [#/Vol] 12.1 10*3/uL High 4.5-11.5 [facility] Comment on above: Performed By: #### C BCDSAT ####S PATHOLOGY XRBPXCLVYX1756 [place], Care Plan Noteon 03-26-2021 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 Authentication Interface Message Text Normal [facility] GLU[facility], FINGERSTICK-IN OFFI CEon 03-26-2021 Glucose [Mass/Vol] 166 mg/dL High 80-[address] [facility] Comment on above: Performed By: #### 8 2948 ####NURSING GLUCOSE FJNTJDG3631 [place], [address] Glucose [Mass/Vol] 118 mg/dL High 80-116 [facility] Comment on above: Performed By: #### 8 2948 ####NURSING GLUCOSE KONHMZB1076 [place], [address] Glucose [Mass/Vol] 138 mg/dL High 80-116 [facility] Comment on above: Performed By: #### 8 2948 ####NURSING GLUCOSE JWRMKRQ6553 [place], [address] PROTHROMBIN TIME AND INRon 1 INR Coag (PPP) [Relative time] 1.48 {INR} High 0.90-1.[address] [facility] Comment on above: Performed By: #### P T ####[facility] PATH[facility] RXWMPQYMQY[address] [place] [address], PT Coag (PPP) [Time] 16.4 s High 9.7-12.[address] [facility] Comment on above: Performed By: #### P T ####S PATHOLOGY OXVXJUXQQO024[address] [place] [address], Progress Noteson 03-26-2021 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 Authentication Interface Message Text Normal [facility] BASIC METABOLIC PANELon 03-05 Anion gap [Moles/Vol] 15 mmol/L Normal 10-20 [facility] Comment on above: Performed By: #### C H8, MG, HEPATIC ####[facility] PATH[facility] YNZZOLVSDO8952 [place], Calcium [Mass/Vol] 8.3 mg/dL Low 8.4-10.4 [facility] Comment on above: Performed By: #### C H8, MG, HEPATIC ####[facility] PATH[facility] PKXZRPDDNN6491 [place], Chloride [Moles/Vol] 98 mmol/L Normal 97-111 [facility] Comment on above: Performed By: #### C H8, MG, HEPATIC ####[facility] PATH[facility]Y GSWWKLCGMQ5478 [place], CO2 [Moles/Vol] 28 mmol/L Normal 21-[address] [facility] [facility] Comment on above: Performed By: #### C H8, MG, HEPATIC ####[facility] PATH[facility]Y YXOHAMLGWX1839 [place], Creatinine [Mass/Vol] 1.23 mg/dL Normal 0.80-1.[address] [facility] Comment on above: Performed By: #### C H8, MG, HEPATIC ####[facility] PATH[facility] OJUSWKWSZW8765 [place], ESTIMATED GFR (CKD-EPI) 57 mL/min/1.73sqm Low >=[address] [facility] Comment on above: Performed By: #### C H8, MG, HEPATIC ####[facility] PATH[facility] SPZRQKZHIE6030 [place], Glucose [Mass/Vol] 137 mg/dL High 80-[address] [facility] [facility] Comment on above: Performed By: #### C H8, MG, HEPATIC ####[facility] PATH[facility] FLTQCLXYHG0036 [place], Potassium [Moles/Vol] 4.0 mmol/L Normal 3.3-5.[address] [facility] [facility] Comment on above: Performed By: #### C H8, MG, HEPATIC ####[facility] PATH[facility] WUMDCPIZSP3744 [place], Sodium [Moles/Vol] 137 mmol/L Normal 135-148 [facility] Comment on above: Performed By: #### C H8, MG, HEPATIC ####[facility] PATH[facility]Y XDJPHJAHZR5844 [place], Urea nitrogen [Mass/Vol] 32 mg/dL High 8-22 [facility] Comment on above: Performed By: #### C H8, MG, HEPATIC ####[facility] PATH[facility] JGPEKWDNZY9030 [place], CBC WITH DIFFERENTIALon 03-05 Basophils (Bld) [#/Vol] 0.05 10*3/uL Normal 0.00-0.20 [facility] Comment on above: Performed By: #### C BCDSAT ####[facility] PATH[facility] UOLYSZLHON3553 [place], Basophils/100 WBC (Bld) 0.3 % Normal <=1.9 [facility] Comment on above: Performed By: #### C BCDSAT ####[facility] PATHOLOGY EGEWXUVYFQ8060 [place], Eosinophils (Bld) [#/Vol] 0.35 10*3/uL Normal 0.00-0.70 [facility] Comment on above: Performed By: #### C BCDSAT ####[facility] PATHOLOGY HIITTKTMQB[address] [place] [address], Eosinophils/100 WBC (Bld) 2.1 % Normal 0.1-4.0 [facility] Comment on above: Performed By: #### C BCDSAT ####[facility] PATHOLOGY CJXCMRLHAK[address] [place] [address], Erythrocyte distribution width (RBC) [Ratio] 14.3 % Normal 11.5-14.5 [facility] Comment on above: Performed By: #### C BCDSAT ####[facility] PATHOLOGY NGLXHUAUGA[address] [place] [address], Hematocrit (Bld) [Volume fraction] 22.8 % Low 41.0-53.0 [facility] Comment on above: Performed By: #### C BCDSAT ####[facility] PATHOLOGY JDXMXNOHYF8[address] [place] [address], Hemoglobin (Bld) [Mass/Vol] 7.6 g/dL Low 13.9-16.3 [facility] Comment on above: Performed By: #### C BCDSAT ####[facility] PATHOLOGY UJUZKYWNWM49[address] [place] [address], Lymphocytes (Bld) [#/Vol] 1.36 10*3/uL Normal 1.00-4.80 [facility] Comment on above: Performed By: #### C BCDSAT ####[facility] PATHOLOGY IMQYKANWAQ1476 [place], Lymphocytes/100 WBC (Bld) 8.2 % Low 24.0-44.0 [facility] Comment on above: Performed By: #### C BCDSAT ####[facility] PATH[facility] CDHJNGVFPH7981 [place], MCH (RBC) [Entitic mass] 30.5 pg Normal 26.0-34.0 [facility] Comment on above: Performed By: #### Deborah GAMEZAT ####[facility] PATHOLOGY SZDUFNNYWH6844 [place], MCHC (RBC) [Mass/Vol] 33.2 g/dL Normal 32.0-35.9 [facility] Comment on above: Performed By: #### Deborah GAMEZAT ####[facility] PATHOLOGY BSKZMINLYK7506 [place], MCV (RBC) [Entitic vol] 92 fL Normal 80-[address] [facility] Comment on above: Performed By: #### Deborah GAMEZAT ####[facility] PATHOLOGY CNTPMKQOLM[address] [place] [address], MONOCYTE DISTRIBUTION WIDTH Normal [facility] Comment on above: Performed By: #### Deborah GAMEZAT ####[facility] PATHOLOGY [id number] [place], Monocytes (Bld) [#/Vol] 1.80 10*3/uL High 0.20-1.00 [facility] Comment on above: Performed By: #### Deborah GAMEZAT ####[facility] PATHOLOGY [id number] [place], Monocytes/100 WBC (Bld) 10.8 % Normal 2.0-11.0 [facility] Comment on above: Performed By: #### Deborah GAMEZAT ####[facility] PATHOLOGY [id number] [place], Neutrophils (Bld) [#/Vol] 13.16 10*3/uL High 1.50-8.00 [facility] Comment on above: Performed By: #### Deborah GAMEZAT ####[facility] PATHOLOGY WNNKHPUHYM3546 [place], Neutrophils/100 WBC (Bld) 78.7 % High 31.0-76.[address] [facility] Comment on above: Performed By: #### C BCDSAT ####[facility] PATHOLOGY OAUECFTAYM7730 [place], Platelet mean volume (Bld) [Entitic vol] 9.9 fL Normal 7.5-11.[address] [facility] Comment on above: Performed By: #### C BCDSAT ####[facility] PATHOLOGY IQCLIXNVOU8358 [place], Platelets (Bld) [#/Vol] 214 10*3/uL Normal 150-[address] [facility] Comment on above: Performed By: #### C BCDSAT ####[facility] PATHOLOGY AMBUVFLXCI0488 [place], RBC (Bld) [#/Vol] 2.49 10*6/uL Low 4.50-5.[address] [facility] Comment on above: Performed By: #### C BCDSAT ####[facility] PATHOLOGY PZCHIRIUBS9325 [place], WBC (Bld) [#/Vol] 16.7 10*3/uL High 4.5-11.[address] [facility] [facility] Comment on above: Performed By: #### C BCDSAT ####[facility] PATHOLOGY QGNYEDXAOW2064 [place], COMPLETE BLOOD COUNTon 03-25 Erythrocyte distribution width (RBC) [Ratio] 14.4 % Normal 11.5-14.5 [facility] Comment on above: Performed By: #### C BC ####[facility] PATHOLOGY [id number] [place], Hematocrit (Bld) [Volume fraction] 23.3 % Low 41.0-53.0 [facility] Comment on above: Performed By: #### C BC ####[facility] PATHOLOGY RNKCJSNDNF0436 [place], Hemoglobin (Bld) [Mass/Vol] 7.8 g/dL Low 13.9-16.3 [facility] Comment on above: Performed By: #### C BC ####[facility] PATHOLOGY [id number] [place], MCH (RBC) [Entitic mass] 31.4 pg Normal 26.0-34.0 [facility] Comment on above: Performed By: #### C BC ####S PATHOLOGY DDNDQMXDMU8460 [place], MCHC (RBC) [Mass/Vol] 33.5 g/dL Normal 32.0-35.[address] [facility] Comment on above: Performed By: #### C BC ####S PATHOLOGY ZBNFITDKME9162 [place], MCV (RBC) [Entitic vol] 94 fL Normal 80-[address] [facility] Comment on above: Performed By: #### C BC ####[facility] PATHOLOGY [id number] [place], Platelet mean volume (Bld) [Entitic vol] 9.9 fL Normal 7.5-11.2 [facility] Comment on above: Performed By: #### C BC ####[facility] PATHOLOGY [id number] [place], Platelets (Bld) [#/Vol] 210 10*3/uL Normal 150-[address] [facility] Comment on above: Performed By: #### C BC ####[facility] PATHOLOGY [id number] [place], [place], RBC (Bld) [#/Vol] 2.49 10*6/uL Low 4.50-5.[address] [facility] Comment on above: Performed By: #### C BC ####[facility] PATHOLOGY [id number] [place], [place], WBC (Bld) [#/Vol] 12.3 10*3/uL High 4.5-11.5 [facility] Comment on above: Performed By: #### C BC ####S PATHOLOGY [id number] [place], [place], Care Plan Noteon 03-25-2021 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 Authentication Interface Message Text Normal [facility] 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 Authentication Interface Message Text Normal [facility] Consultson 03-25-2021 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 Authentication Interface Message Text Normal [facility] 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 Authentication Interface Message Text Normal [facility] GLUCOSE, FINGERSTICK-IN OFFI CEon 03-25-2021 Glucose [Mass/Vol] 121 mg/dL High 80-116 The [facility] Comment on above: Performed By: #### [id number] ####NURSING GLUCOSE [id number] [place], [address] Glucose [Mass/Vol] 136 mg/dL High 80-116 [facility] Comment on above: Result Comment: Salvador jovel RN, APN, MD Performed By: #### 8 [id number] ####NURSING GLUCOSE [id number] [place], [address] Glucose [Mass/Vol] 164 mg/dL High 80-116 [facility] Comment on above: Result Comment: Salvador jovel RN, APN, MD Performed By: #### 8 [id number] ####NURSING GLUCOSE [id number] [place], [address] Glucose [Mass/Vol] 171 mg/dL High 80-116 [facility] Comment on above: Performed By: #### 8 [id number] ####NURSING GLUCOSE [id number] [place], [place], [address] HEPATIC FUNCTION PANELon Albumin [Mass/Vol] 2.6 g/dL Low 3.4-5.1 [facility] Comment on above: Performed By: #### Deborah Jeronimo MG, HEPATIC ####[facility] [address]ELE[address] [place] [address], ALK 83 IU/L Normal 40-200 [facility] Comment on above: Performed By: #### Deborah Jeronimo, MG, HEPATIC ####[facility] VEIPJXUJZP1100 [place], [place], ALT [Catalytic activity/Vol] 53 U/L High 7-40 [facility] Comment on above: Performed By: #### Deborah Jeronimo, MG, HEPATIC ####[facility] CMQJLPYAZV5677 [place], AST [Catalytic activity/Vol] 60 U/L High 7-40 [facility] Comment on above: Performed By: #### Deborah Jeronimo, MG, HEPATIC ####[facility] XETIYHFCQM5142 [place], Bilirubin [Mass/Vol] 1.2 mg/dL Normal 0.1-1.5 [facility] Comment on above: Performed By: #### C H8, MG, HEPATIC ####[facility] VRXUILFEFK4377 [place], Bilirubin.direct [Mass/Vol] 0.30 mg/dL Normal 0.10-0.30 [facility] Comment on above: Performed By: #### C H8, MG, HEPATIC ####[facility] JPHVNJMAAN3041 [place], Protein [Mass/Vol] 5.7 g/dL Normal 5.7-8.1 [facility] Comment on above: Performed By: #### C Case8, MG, HEPATIC ####[facility] EARNUIZJDS9260 [place], [place], MAGNESIUMon 03-25-2021 Magnesium [Mass/Vol] 2.1 mg/dL Normal 1.6-2.8 [facility] Comment on above: Performed By: #### Deborah H8, MG, HEPATIC ####[facility] GPDBFWGRWC2485 [place], [place], Progress Noteson 03-25-2021 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 Authentication Interface Message Text Message sent to Dr Hernandes: could we possibly get cortisone cream ordered for pt's back. He is itchy, reddened skin, and some tearing to his moles on his back from the pt scratching. Will monitor for order, or contraindication. Normal [facility] 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 Authentication Interface Message Text Both lumens of PICC are sluggish to flush and do not give blood return. TPN paused. Dr. Umana notified and order for Cath-Ermias received. Normal [facility] 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 Authentication Interface Message Text Normal [facility] 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 Authentication Interface Message Text FDC PLAN NOTE S: O: AP: Rest of care per international marketing coordinator note Kacie Roegrs MD PGY-2 [phone] Normal [facility] BASIC METABOLIC PANELon 10- Anion gap [Moles/Vol] 17 mmol/L Normal 10-20 [facility] Comment on above: Performed By: #### H EPATIC PHOS, CH8, TRIG, MG ####[facility] PATHOLOGY NPCODHWWBC5009 [place], Calcium [Mass/Vol] 8.5 mg/dL Normal 8.4-10.4 [facility] Comment on above: Performed By: #### H EPATIC, PHOS, CH8, TRIG, MG ####[facility] PATHOLOGY QIJVWLUXJQ7911 [place], Chloride [Moles/Vol] 101 mmol/L Normal 97-111 [facility] Comment on above: Performed By: #### H EPATIC, PHOS, CH8, TRIG, MG ####[facility] PATHOLOGY UALWVNUECP8919 [place], CO2 [Moles/Vol] 26 mmol/L Normal 21-30 [facility] Comment on above: Performed By: #### H EPATIC, PHOS, CH8, TRIG, MG ####[facility] PATHOLOGY EWMDTCUAFL[address] [place] [address], Creatinine [Mass/Vol] 1.11 mg/dL Normal 0.80-1.30 [facility] Comment on above: Performed By: #### H EPATIC, PHOS, CH8, TRIG, MG ####[facility] PATHOLOGY [id number] [place] [address], ESTIMATED GFR (CKD-EPI) 65 mL/min/1.73sqm Normal >=60 [facility] Comment on above: Performed By: #### H EPATIC, PHOS, CH8, TRIG, MG ####[facility] PATHOLOGY GNVKRWXNGR9320 [place], Glucose [Mass/Vol] 196 mg/dL High 80-116 [facility] Comment on above: Performed By: #### H EPATIC, PHOS, CH8, TRIG, MG ####[facility] PATHOLOGY MRONXMGVAU8417 [place], Potassium [Moles/Vol] 4.3 mmol/L Normal 3.3-5.3 [facility] Comment on above: Performed By: #### H EPATIC, PHOS, CH8, TRIG, MG ####S PATHOLOGY XELSQBZMIE7768 [place], Sodium [Moles/Vol] 140 mmol/L Normal 135-[address] [facility] Comment on above: Performed By: #### H EPATIC, PHOS, CH8, TRIG, MG ####[facility] PATHOLOGY AXPFFSFVPB2995 [place], Urea nitrogen [Mass/Vol] 30 mg/dL High 8-22 [facility] Comment on above: Performed By: #### H EPATIC, PHOS, CH8, TRIG, MG ####[facility] PATHOLOGY VBHEUDLENM2554 [place], CBC WITH DIFFERENTIALon 03-05 Basophils (Bld) [#/Vol] 0.09 10*3/uL Normal 0.00-0.20 [facility] Comment on above: Performed By: #### C BCDSAT ####[facility] PATHOLOGY WQGHZLPIPI8391 [place], Basophils/100 WBC (Bld) 0.5 % Normal <=1.9 [facility] Comment on above: Performed By: #### C BCDSAT ####[facility] PATHOLOGY OIRXXGKPHH9009 [place], Eosinophils (Bld) [#/Vol] 0.35 10*3/uL Normal 0.00-0.70 [facility] Comment on above: Performed By: #### C BCDSAT ####[facility] PATHOLOGY [id number] [place], Eosinophils/100 WBC (Bld) 2.0 % Normal 0.1-4.0 [facility] Comment on above: Performed By: #### C BCDSAT ####[facility] PATHOLOGY VAJRJJAJRK2020 [place], Erythrocyte distribution width (RBC) [Ratio] 14.4 % Normal 11.5-14.5 [facility] Comment on above: Performed By: #### C BCDSAT ####[facility] PATHOLOGY JWNWSAIQZR7194 [place], Hematocrit (Bld) [Volume fraction] 24.3 % Low 41.0-53.0 [facility] Comment on above: Performed By: #### Deborah GAMEZAT ####[facility] PATHOLOGY AWUYODHOCB[address] [place] [address], Hemoglobin (Bld) [Mass/Vol] 8.1 g/dL Low 13.9-16.3 [facility] Comment on above: Performed By: #### Deborah GAMEZAT ####[facility] PATHOLOGY OFAIVVGZRQ[address] [place] [address], Lymphocytes (Bld) [#/Vol] 1.18 10*3/uL Normal 1.00-4.80 [facility] Comment on above: Performed By: #### Deborah GAMEZAT ####[facility] PATHOLOGY DNVZYHUDUA[address] [place] [address], Lymphocytes/100 WBC (Bld) 6.5 % Low 24.0-44.0 [facility] Comment on above: Performed By: #### Deborah GAMEZAT ####[facility] PATHOLOGY YGVXPJOMMD6[address] [place] [address], MCH (RBC) [Entitic mass] 30.9 pg Normal 26.0-34.0 [facility] Comment on above: Performed By: #### Deborah GAMEZAT ####[facility] PATHOLOGY RZOVVYIJRR[address] [place] [address], MCHC (RBC) [Mass/Vol] 33.3 g/dL Normal 32.0-35.9 [facility] Comment on above: Performed By: #### Deborah GAMEZAT ####[facility] PATHOLOGY EPKZGZVGDD[address] [place] [address], MCV (RBC) [Entitic vol] 93 fL Normal 80-100 [facility] Comment on above: Performed By: #### Deborah GAMEZAT ####[facility] PATHOLOGY IQAUSTDPWO01[address] [place] [address], MONOCYTE DISTRIBUTION WIDTH Normal [facility] Comment on above: Performed By: #### Deborah GAMEZAT ####[facility] PATHOLOGY VWORPJDTKJ[address] [place] [address], Monocytes (Bld) [#/Vol] 1.41 10*3/uL High 0.20-1.00 [facility] Comment on above: Performed By: #### Deborah GAMEZAT ####[facility] PATHOLOGY CYRYATLNAY7172 [place], Monocytes/100 WBC (Bld) 7.8 % Normal 2.0-11.0 [facility] Comment on above: Performed By: #### Deborah GAMEZAT ####[facility] PATHOLOGY OUMGDRWRKV[address] [place] [address], Neutrophils (Bld) [#/Vol] 15.08 10*3/uL High 1.50-8.00 [facility] Comment on above: Performed By: #### Deborah GAMEZAT ####[facility] PATHOLOGY HBNJTBRNFA39[address] [place] [address], Neutrophils/100 WBC (Bld) 83.3 % High 31.0-76.0 [facility] Comment on above: Performed By: #### Deborah GAMEZAT ####[facility] PATHOLOGY BGJARNSDFE[address] [place] [address], Platelet mean volume (Bld) [Entitic vol] 10.2 fL Normal 7.5-11.2 [facility] Comment on above: Performed By: #### Deborah GAMEZAT ####[facility] PATHOLOGY FHXCZOJQVK539[address] [place] [address], Platelets (Bld) [#/Vol] 210 10*3/uL Normal 150-400 [facility] Comment on above: Performed By: #### Deborah GAMEZAT ####[facility] PATHOLOGY HKYOLSPQVQ4538 [place], RBC (Bld) [#/Vol] 2.62 10*6/uL Low 4.50-5.90 [facility] Comment on above: Performed By: #### Deborah GAMEZAT ####[facility] PATHOLOGY NIKMNFCCKK0645 [place], WBC (Bld) [#/Vol] 18.1 10*3/uL High 4.5-11.5 [facility] Comment on above: Performed By: #### Deborah GAMEZAT ####[facility] PATHOLOGY JWCKGXNGDR3257 [place], Basophils (Bld) [#/Vol] 0.18 10*3/uL Normal 0.00-0.20 [facility] Comment on above: Performed By: #### C BCDSAT ####[facility] PATHOLOGY JPSOMCOOHS5703 [place], Basophils/100 WBC (Bld) 0.9 % Normal <=1.[address] [facility] Comment on above: Performed By: #### C BCDSAT ####[facility] PATHOLOGY [id number] [place], Eosinophils (Bld) [#/Vol] 0.50 10*3/uL Normal 0.00-0.[address] [facility] Comment on above: Performed By: #### C BCDSAT ####[facility] PATHOLOGY IPQMIOBZAU[address] [place] [address], Eosinophils/100 WBC (Bld) 2.5 % Normal 0.1-4.[address] [facility] Comment on above: Performed By: #### C BCDSAT ####[facility] PATHOLOGY MHVZCRXJGD10[address] [place] [address], Erythrocyte distribution width (RBC) [Ratio] 14.4 % Normal 11.5-14.5 [facility] Comment on above: Performed By: #### C BCDSAT ####[facility] PATHOLOGY PAAOSRYGWM9781 [place], Hematocrit (Bld) [Volume fraction] 24.3 % Low 41.0-53.0 [facility] Comment on above: Performed By: #### C BCDSAT ####[facility] PATHOLOGY UEWIZGBAUJ3677 [place], Hemoglobin (Bld) [Mass/Vol] 8.1 g/dL Low 13.9-16.3 [facility] Comment on above: Performed By: #### C BCDSAT ####[facility] PATHOLOGY VITDHCIAIG92[address] [place] [address], Lymphocytes (Bld) [#/Vol] 1.28 10*3/uL Normal 1.00-4.80 [facility] Comment on above: Performed By: #### C BCDSAT ####[facility] PATHOLOGY ORMGKYQVUP6272 [place], Lymphocytes/100 WBC (Bld) 6.4 % Low 24.0-44.0 [facility] Comment on above: Performed By: #### C BCDSAT ####[facility] PATHOLOGY NXWTLNXMKD4789 [place], MCH (RBC) [Entitic mass] 30.6 pg Normal 26.0-34.0 [facility] Comment on above: Performed By: #### C BCDSAT ####[facility] PATHOLOGY HCTKUFOOXV2904 [place], MCHC (RBC) [Mass/Vol] 33.1 g/dL Normal 32.0-35.9 [facility] Comment on above: Performed By: #### C BCDSAT ####[facility] PATHOLOGY GJDYYOFCWE[address] [place] [address], MCV (RBC) [Entitic vol] 93 fL Normal 80-100 [facility] Comment on above: Performed By: #### C BCDSAT ####[facility] PATHOLOGY JUMCDYIYCG8601 [place], MONOCYTE DISTRIBUTION WIDTH Normal [facility] Comment on above: Performed By: #### C BCDSAT ####[facility] PATHOLOGY XDYSEAXJNJ3713 [place], Monocytes (Bld) [#/Vol] 2.23 10*3/uL High 0.20-1.00 [facility] Comment on above: Performed By: #### C BCDSAT ####[facility] PATHOLOGY VVFGHJVRTU0585 [place], Monocytes/100 WBC (Bld) 11.2 % High 2.0-11.0 [facility] Comment on above: Performed By: #### C BCDSAT ####[facility] PATHOLOGY KHUNDEWYBO1852 [place], Neutrophils (Bld) [#/Vol] 15.70 10*3/uL High 1.50-8.00 [facility] Comment on above: Performed By: #### Deborah BCDSAT ####[facility] PATHOLOGY JDXOWXGOSJ0731 [place], Neutrophils/100 WBC (Bld) 79.0 % High 31.0-76.0 [facility] Comment on above: Performed By: #### C BCDSAT ####[facility] PATHOLOGY IBEJNBMVYN[address] [place] [address], Platelet mean volume (Bld) [Entitic vol] 10.1 fL Normal 7.5-11.2 [facility] Comment on above: Performed By: #### Deborah GRUBBSDSAT ####[facility] PATHOLOGY IYCJSXWBGV[address] [place] [address], Platelets (Bld) [#/Vol] 209 10*3/uL Normal 150-[address] [facility] Comment on above: Performed By: #### Deborah GRUBBSDSAT ####[facility] PATHOLOGY UQLBVXPBUI9[address] [place] [address], RBC (Bld) [#/Vol] 2.63 10*6/uL Low 4.50-5.[address] [facility] Comment on above: Performed By: #### Deborah BCDSAT ####[facility] PATHOLOGY CAITNUDFMV[address] [place] [address], WBC (Bld) [#/Vol] 19.9 10*3/uL High 4.5-11.5 [facility] Comment on above: Performed By: #### Deborah BCDSAT ####[facility] PATHOLOGY SZPJNCFDQV[address] [place] [address], Basophils (Bld) [#/Vol] 0.06 10*3/uL Normal 0.00-0.[address] [facility] Comment on above: Performed By: #### C BCDSAT ####[facility] PATHOLOGY XKKXSEAWTQ[address] [place] [address], Basophils/100 WBC (Bld) 0.3 % Normal <=1.[address] [facility] Comment on above: Performed By: #### Deborah BCDSAT ####[facility] PATHOLOGY MYLRBGEYWI1445 [place], Eosinophils (Bld) [#/Vol] 0.45 10*3/uL Normal 0.00-0.70 [facility] Comment on above: Performed By: #### C BCDSAT ####[facility] PATHOLOGY MOLOGFKJBJ2233 [place], Eosinophils/100 WBC (Bld) 2.4 % Normal 0.1-4.0 [facility] Comment on above: Performed By: #### C BCDSAT ####[facility] PATHOLOGY YKASIBMMUH[address] [place] [address], Erythrocyte distribution width (RBC) [Ratio] 14.5 % Normal 11.5-14.5 [facility] Comment on above: Performed By: #### C BCDSAT ####[facility] PATHOLOGY EPIFMHBYQA[address] [place] [address], Hematocrit (Bld) [Volume fraction] 25.2 % Low 41.0-53.0 [facility] Comment on above: Performed By: #### C BCDSAT ####[facility] PATHOLOGY PAJPAXWSCH[address] [place] [address], Hemoglobin (Bld) [Mass/Vol] 8.1 g/dL Low 13.9-16.3 [facility] Comment on above: Performed By: #### C BCDSAT ####[facility] PATHOLOGY LNCURJKTQA2934 [place], Lymphocytes (Bld) [#/Vol] 1.14 10*3/uL Normal 1.00-4.80 [facility] Comment on above: Performed By: #### C BCDSAT ####[facility] PATHOLOGY WMAPENSEUJ5792 [place], Lymphocytes/100 WBC (Bld) 6.2 % Low 24.0-44.0 [facility] Comment on above: Performed By: #### C BCDSAT ####[facility] PATHOLOGY ZVJVPEGJHM1734 [place], MCH (RBC) [Entitic mass] 30.9 pg Normal 26.0-34.0 [facility] Comment on above: Performed By: #### C BCDSAT ####S PATHOLOGY TMHITGTDIM5719 [place], MCHC (RBC) [Mass/Vol] 32.1 g/dL Normal 32.0-35.9 [facility] Comment on above: Performed By: #### C BCDSAT ####[facility] PATHOLOGY JJFOPNHDCV1495 [place], MCV (RBC) [Entitic vol] 96 fL Normal 80-[address] [facility] Comment on above: Performed By: #### C BCDSAT ####[facility] PATHOLOGY JJPTWXJUAW7157 [place], MONOCYTE DISTRIBUTION WIDTH Normal [facility] Comment on above: Performed By: #### C BCDSAT ####[facility] PATHOLOGY ZEPVDFPKZS4804 [place], Monocytes (Bld) [#/Vol] 1.91 10*3/uL High 0.20-1.[address] [facility] Comment on above: Performed By: #### C BCDSAT ####[facility] PATHOLOGY PIFNXEPGSQ7832 [place], Monocytes/100 WBC (Bld) 10.3 % Normal 2.0-11.[address] [facility] Comment on above: Performed By: #### C BCDSAT ####[facility] PATHOLOGY ZLBRIFPCCV5476 [place], Neutrophils (Bld) [#/Vol] 14.99 10*3/uL High 1.50-8.[address] [facility] Comment on above: Performed By: #### C BCDSAT ####[facility] PATHOLOGY SLKHBYRJBN9435 [place], Neutrophils/100 WBC (Bld) 80.9 % High 31.0-76.[address] [facility] [facility] Comment on above: Performed By: #### C BCDSAT ####S PATHOLOGY KQHXAMBRPT1383 [place], Platelet mean volume (Bld) [Entitic vol] 10.0 fL Normal 7.5-11.2 [facility] Comment on above: Performed By: #### C BCDSAT ####S PATHOLOGY XQNYMZNHMK9590 [place], Platelets (Bld) [#/Vol] 200 10*3/uL Normal 150-400 [facility] Comment on above: Performed By: #### C BCMARIAMAAT ####S PATHOLOGY PYTYPECYDF7322 [place], RBC (Bld) [#/Vol] 2.62 10*6/uL Low 4.50-5.90 [facility] Comment on above: Performed By: #### C BCDSAT ####S PATHOLOGY PBBVJSWPPW5215 [place], WBC (Bld) [#/Vol] 18.5 10*3/uL High 4.5-11.5 [facility] Comment on above: Performed By: #### C BCDSAT ####[facility] PATHOLOGY XDRQUBBWOC5236 [place], Care Plan Noteon 03-24-2021 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 Authentication Interface Message Text Normal [facility] Consultson 03-24-2021 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 Authentication Interface Message Text Normal [facility] 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 Authentication Interface Message Text Normal [facility] 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 Authentication Interface Message Text Normal [facility] GLUCOSE, FINGERSTICK-IN OFFI CEon 03-24-2021 Glucose [Mass/Vol] 222 mg/dL High 80-116 [facility] Comment on above: Performed By: #### 8 2948 ####NURSING GLUCOSE RCNKOWH7021 [place], [address] Glucose [Mass/Vol] 156 mg/dL High 80-116 [facility] Comment on above: Result Comment: Foll ow Protocol Performed By: #### 8 2948 ####NURSING GLUCOSE IJEZOTD8044 [place], [address] Glucose [Mass/Vol] 185 mg/dL High 80-116 [facility] Comment on above: Result Comment: Foll ow Protocol Performed By: #### 8 2948 ####NURSING GLUCOSE VXDVVWD0270 [place], [address] Glucose [Mass/Vol] 228 mg/dL High 80-116 [facility] Comment on above: Result Comment: Salvador jovel RN, APN, MD Performed By: #### 8 2948 ####NURSING GLUCOSE EDXEZFU6845 [place], [address] Glucose [Mass/Vol] 212 mg/dL High 80-116 [facility] Comment on above: Result Comment: Salvador jovel RN, APN, MD Performed By: #### 8 2948 ####NURSING GLUCOSE CYQNSDT3384 [place], [address] HEPATIC FUNCTION PANELon Albumin [Mass/Vol] 2.7 g/dL Low 3.4-5.1 [facility] Comment on above: Performed By: #### H EPATIC, PHOS, CH8, TRIG, MG ####[facility] [address]WIQEMKL[address] [place] [address], ALK 75 IU/L Normal 40-[address] [facility] Comment on above: Performed By: #### H EPATIC, PHOS, CH8, TRIG, MG ####[facility] PATH[facility] FRUBRTHPUL5[address] [place] [address], ALT [Catalytic activity/Vol] 50 U/L High 7-40 [facility] Comment on above: Performed By: #### H EPATIC, PHOS, CH8, TRIG, MG ####[facility] AVNQQPFSRV8411 [place], AST [Catalytic activity/Vol] 57 U/L High 7-40 [facility] Comment on above: Performed By: #### H EPATIC, PHOS, CH8, TRIG, MG ####[facility] PATH[facility]Y POGRXDYEXY7853 [place], Bilirubin [Mass/Vol] 0.7 mg/dL Normal 0.1-1.5 [facility] Comment on above: Performed By: #### H EPATIC, PHOS, CH8, TRIG, MG ####[facility] PATH[facility]Y QLVUAHPPRA4330 [place], Bilirubin.direct [Mass/Vol] 0.50 mg/dL High 0.10-0.30 [facility] Comment on above: Performed By: #### H EPATIC, PHOS, CH8, TRIG, MG ####[facility] PATH[facility] BEYOVUBHGC2860 [place], Protein [Mass/Vol] 5.9 g/dL Normal 5.7-8.1 [facility] Comment on above: Performed By: #### H EPATIC, PHOS, CH8, TRIG, MG ####[facility] PATH[facility] HPNPEZWEYO1000 [place], [place], MAGNESIUMon 03-24-2021 Magnesium [Mass/Vol] 2.2 mg/dL Normal 1.6-2.8 [facility] Comment on above: Performed By: #### H EPATIC, PHOS, CH8, TRIG, MG ####[facility] [id number] [place], [place], PHOSPHORUSon 03-24-2021 Phosphate [Mass/Vol] 3.5 mg/dL Normal 2.3-4.2 [facility] Comment on above: Performed By: #### H EPATIC, PHOS, CH8, TRIG, MG ####[facility] [id number] [place], [place], Progress Noteson 03-24-2021 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 Authentication Interface Message Text Normal [facility] 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 Authentication Interface Message Text Normal [facility] 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 Authentication Interface Message Text Normal [facility] 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 Authentication Interface Message Text Normal [facility] 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 Authentication Interface Message Text As patient is transitioned off amiodarone gtt for WCT, no indication to start oral amiodarone. Patient to get 30-day event monitor and follow up with EP in 4 weeks. Normal [facility] TRIGLYCERIDESon 03-24-2021 Triglyceride [Mass/Vol] 152 mg/dL High <151 [facility] Comment on above: Performed By: #### H EPATIC, PHOS, CH8, TRIG, MG ####[facility] [id number] [place], [place], Transfer Noteon 03-24-2021 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 Authentication Interface Message Text Normal [facility] BASIC METABOLIC PANELon 03-05 Anion gap [Moles/Vol] 15 mmol/L Normal -20 [facility] Comment on above: Performed By: #### MG Dev, PHOS ####[facility] [id number] [place], [place], Calcium [Mass/Vol] 8.3 mg/dL Low 8.4-10.4 [facility] Comment on above: Performed By: #### MG Dev, PHOS ####[facility] HQECGCVTYY0436 [place], Chloride [Moles/Vol] 104 mmol/L Normal 97-111 [facility] Comment on above: Performed By: #### MG Dev, PHOS ####[facility] PATH[facility] [address]AIHKL[address] [place] [address], CO2 [Moles/Vol] 25 mmol/L Normal 21-30 [facility] Comment on above: Performed By: #### MG Dev, PHOS ####[facility] CDVLLQXGHZ[address] [place] [address], Creatinine [Mass/Vol] 1.13 mg/dL Normal 0.80-1.30 [facility] Comment on above: Performed By: #### MG Dev, PHOS ####[facility] PATH[facility] TOMTANQSKA[address] [place] [address], ESTIMATED GFR (CKD-EPI) 63 mL/min/1.73sqm Normal >=60 [facility] Comment on above: Performed By: #### Deborah Jeronimo MG, PHOS ####[facility] QILELGCVCK2932 [place], [place], Glucose [Mass/Vol] 238 mg/dL High 80-116 [facility] Comment on above: Performed By: #### MG Dev, PHOS ####[facility] XUXKLPWARB4555 [place], Potassium [Moles/Vol] 4.7 mmol/L Normal 3.3-5.3 [facility] Comment on above: Result Comment: Hemo lysis present Performed By: #### Deborah Jeronimo MG, PHOS ####[facility] AEZYOWVYWI5239 [place], Sodium [Moles/Vol] 139 mmol/L Normal 135-148 [facility] Comment on above: Performed By: #### MG Méndez PHOS ####S PATHOLOGY EXKAHKNLWO8827 [place], Urea nitrogen [Mass/Vol] 32 mg/dL High 8-22 [facility] Comment on above: Performed By: #### MG Méndez PHOS ####S PATHOLOGY NLUVFGZEJG3697 [place], [place], CBC WITH DIFFERENTIALon 03-05-2020 Basophils (Bld) [#/Vol] 0.04 10*3/uL Normal 0.00-0.20 [facility] Comment on above: Performed By: #### C BCDSAT ####[facility] PATHOLOGY XJSLSCTJZR9685 [place], Basophils/100 WBC (Bld) 0.2 % Normal <=1.9 [facility] Comment on above: Performed By: #### C BCDSAT ####[facility] PATHOLOGY HKVEXRJXUX5930 [place], Eosinophils (Bld) [#/Vol] 0.36 10*3/uL Normal 0.00-0.[address] [facility] Comment on above: Performed By: #### Deborah BCDSAT ####[facility] PATHOLOGY TUFCGDXKQC1203 [place], Eosinophils/100 WBC (Bld) 1.9 % Normal 0.1-4.0 [facility] Comment on above: Performed By: #### C BCDSAT ####S PATHOLOGY SUIBCVHKAK9782 [place], Erythrocyte distribution width (RBC) [Ratio] 14.1 % Normal 11.5-14.5 [facility] Comment on above: Performed By: #### C BCDSAT ####[facility] PATHOLOGY [id number] [place], Hematocrit (Bld) [Volume fraction] 26.1 % Low 41.0-53.0 [facility] Comment on above: Performed By: #### C BCDSAT ####[facility] PATHOLOGY CLGPPFIWPF7544 [place], Hemoglobin (Bld) [Mass/Vol] 8.8 g/dL Low 13.9-16.3 [facility] Comment on above: Performed By: #### C BCDSAT ####[facility] PATHOLOGY [id number] [place], Lymphocytes (Bld) [#/Vol] 1.10 10*3/uL Normal 1.00-4.80 [facility] Comment on above: Performed By: #### C BCDSAT ####[facility] PATHOLOGY [id number] [place], Lymphocytes/100 WBC (Bld) 5.7 % Low 24.0-44.0 [facility] Comment on above: Performed By: #### C BCDSAT ####[facility] PATHOLOGY [id number] [place] [address], MCH (RBC) [Entitic mass] 31.4 pg Normal 26.0-34.0 [facility] Comment on above: Performed By: #### C BCDSAT ####[facility] PATHOLOGY HSNPBOPJSQ[address] [place] [address], MCHC (RBC) [Mass/Vol] 33.7 g/dL Normal 32.0-35.9 [facility] Comment on above: Performed By: #### C BCDSAT ####[facility] PATHOLOGY YXJVITTHJK5[address] [place] [address], MCV (RBC) [Entitic vol] 93 fL Normal 80-100 [facility] Comment on above: Performed By: #### C BCDSAT ####[facility] PATHOLOGY [id number] [place], MONOCYTE DISTRIBUTION WIDTH Normal [facility] Comment on above: Performed By: #### C BCDSAT ####S PATHOLOGY HSDTQGWDFK4609 [place], Monocytes (Bld) [#/Vol] 2.00 10*3/uL High 0.20-1.00 [facility] Comment on above: Performed By: #### C BCDSAT ####S PATHOLOGY ODRSTMHHCD0142 [place], Monocytes/100 WBC (Bld) 10.4 % Normal 2.0-11.0 [facility] Comment on above: Performed By: #### C BCDSAT ####S PATHOLOGY GNYQHXARQA0037 [place], Neutrophils (Bld) [#/Vol] 15.73 10*3/uL High 1.50-8.[address] [facility] Comment on above: Performed By: #### C BCDSAT ####[facility] PATHOLOGY LEFCJBETXE6269 [place], Neutrophils/100 WBC (Bld) 81.8 % High 31.0-76.[address] [facility] Comment on above: Performed By: #### C BCDSAT ####[facility] PATHOLOGY DJBYRLCBZF8191 [place], Platelet mean volume (Bld) [Entitic vol] 10.1 fL Normal 7.5-11.[address] [facility] Comment on above: Performed By: #### C BCDSAT ####S PATHOLOGY WMYVIXPIJX1837 [place], Platelets (Bld) [#/Vol] 215 10*3/uL Normal 150-[address] [facility] Comment on above: Performed By: #### C BCDSAT ####S PATHOLOGY LVPWAUNECG6963 [place], RBC (Bld) [#/Vol] 2.80 10*6/uL Low 4.50-5.[address] [facility] Comment on above: Performed By: #### C BCDSAT ####[facility] DCDAJUAKUO5578 [place], WBC (Bld) [#/Vol] 19.2 10*3/uL High 4.5-11.[address] [facility] Comment on above: Performed By: #### C BCDSAT ####[facility] PCRXHOAKJD8747 [place], Basophils (Bld) [#/Vol] 0.07 10*3/uL Normal 0.00-0.20 [facility] Comment on above: Performed By: #### C BCDSAT ####[facility] PATHOLOGY LPPZJSPNMU7721 [place], Basophils/100 WBC (Bld) 0.4 % Normal <=1.9 [facility] Comment on above: Performed By: #### C BCDSAT ####[facility] PATHOLOGY [id number] [place] [address], Eosinophils (Bld) [#/Vol] 0.26 10*3/uL Normal 0.00-0.70 [facility] Comment on above: Performed By: #### C BCDSAT ####[facility] PATHOLOGY [id number] [place] [address], Eosinophils/100 WBC (Bld) 1.3 % Normal 0.1-4.0 [facility] Comment on above: Performed By: #### C BCDSAT ####[facility] PATHOLOGY SMJOLUILKD[address] [place] [address], Erythrocyte distribution width (RBC) [Ratio] 14.2 % Normal 11.5-14.5 [facility] Comment on above: Performed By: #### C BCDSAT ####[facility] PATHOLOGY OYRHQFRBMU3457 [place], Hematocrit (Bld) [Volume fraction] 26.4 % Low 41.0-53.0 [facility] Comment on above: Performed By: #### C BCDSAT ####[facility] PATHOLOGY QIFNEKLLKH0957 [place], Hemoglobin (Bld) [Mass/Vol] 8.7 g/dL Low 13.9-16.3 [facility] Comment on above: Performed By: #### C BCDSAT ####[facility] PATHOLOGY [id number] [place] [address], Lymphocytes (Bld) [#/Vol] 1.15 10*3/uL Normal 1.00-4.80 [facility] Comment on above: Performed By: #### C BCDSAT ####[facility] PATHOLOGY [id number] [place], Lymphocytes/100 WBC (Bld) 6.0 % Low 24.0-44.0 [facility] Comment on above: Performed By: #### C BCDSAT ####[facility] PATHOLOGY [id number] [place], MCH (RBC) [Entitic mass] 30.4 pg Normal 26.0-34.0 [facility] Comment on above: Performed By: #### C BCDSAT ####[facility] PATHOLOGY ZJAFHUYHKU3201 [place], MCHC (RBC) [Mass/Vol] 32.9 g/dL Normal 32.0-35.9 [facility] Comment on above: Performed By: #### C BCDSAT ####[facility] PATHOLOGY ARNCLADMDZ6409 [place], MCV (RBC) [Entitic vol] 92 fL Normal 80-100 [facility] Comment on above: Performed By: #### C BCDSAT ####[facility] PATHOLOGY VVNRUIURXJ5870 [place], MONOCYTE DISTRIBUTION WIDTH Normal [facility] Comment on above: Performed By: #### C BCDSAT ####[facility] PATHOLOGY OTAGMKTNSZ9539 [place], Monocytes (Bld) [#/Vol] 1.99 10*3/uL High 0.20-1.00 [facility] Comment on above: Performed By: #### C BCDSAT ####[facility] PATHOLOGY DKCXAFXEOY7871 [place], Monocytes/100 WBC (Bld) 10.4 % Normal 2.0-11.0 [facility] Comment on above: Performed By: #### C BCDSAT ####[facility] PATHOLOGY [id number] [place], Neutrophils (Bld) [#/Vol] 15.68 10*3/uL High 1.50-8.[address] [facility] Comment on above: Performed By: #### C BCDSAT ####[facility] PATHOLOGY ATLLWOJWNN4672 [place], Neutrophils/100 WBC (Bld) 81.9 % High 31.0-76.0 [facility] Comment on above: Performed By: #### C BCDSAT ####[facility] PATHOLOGY VULFQXYJRF8337 [place], Platelet mean volume (Bld) [Entitic vol] 9.5 fL Normal 7.5-11.2 [facility] Comment on above: Performed By: #### C BCDSAT ####[facility] PATHOLOGY QNIDMFVBAY0673 [place], Platelets (Bld) [#/Vol] 211 10*3/uL Normal 150-[address] [facility] Comment on above: Performed By: #### C BCDSAT ####[facility] PATHOLOGY [id number] [place] [address], RBC (Bld) [#/Vol] 2.87 10*6/uL Low 4.50-5.[address] [facility] Comment on above: Performed By: #### C BCDSAT ####[facility] PATHOLOGY GUYFJSAJLS1008 [place], WBC (Bld) [#/Vol] 19.1 10*3/uL High 4.5-11.5 [facility] Comment on above: Performed By: #### C BCDSAT ####[facility] PATHOLOGY RWBDBMXELO3329 [place], Basophils (Bld) [#/Vol] 0.05 10*3/uL Normal 0.00-0.[address] [facility] Comment on above: Performed By: #### C BCDSAT ####[facility] PATHOLOGY [id number] [place], Basophils/100 WBC (Bld) 0.3 % Normal <=1.9 [facility] Comment on above: Performed By: #### C BCDSAT ####[facility] PATHOLOGY [id number] [place], Eosinophils (Bld) [#/Vol] 0.09 10*3/uL Normal 0.00-0.70 [facility] Comment on above: Performed By: #### Deborah GAMEZAT ####[facility] PATHOLOGY BSUPRVTQKP1537 [place], Eosinophils/100 WBC (Bld) 0.5 % Normal 0.1-4.0 [facility] Comment on above: Performed By: #### Deborah GAMEZAT ####[facility] PATHOLOGY ENUJINPZSZ[address] [place] [address], Erythrocyte distribution width (RBC) [Ratio] 14.1 % Normal 11.5-14.5 [facility] Comment on above: Performed By: #### Deborah GAMEZAT ####[facility] PATHOLOGY ECEUBQEJKM838[address] [place] [address], Hematocrit (Bld) [Volume fraction] 28.5 % Low 41.0-53.0 [facility] Comment on above: Performed By: #### Deborah GAMEZAT ####[facility] PATHOLOGY BNNAJOVQVT[address] [place] [address], Hemoglobin (Bld) [Mass/Vol] 9.6 g/dL Low 13.9-16.3 [facility] Comment on above: Performed By: #### Deborah GAMEZAT ####[facility] PATHOLOGY LGNAHAFAZD033[address] [place] [address], Lymphocytes (Bld) [#/Vol] 0.92 10*3/uL Low 1.00-4.[address] [facility] Comment on above: Performed By: #### Deborah GAMEZAT ####[facility] PATHOLOGY HVSESKEBMX539[address] [place] [address], Lymphocytes/100 WBC (Bld) 4.9 % Low 24.0-44.0 [facility] Comment on above: Performed By: #### Deborah GAMEZAT ####[facility] PATHOLOGY MZVNZNLLFJ7505 [place], MCH (RBC) [Entitic mass] 31.3 pg Normal 26.0-34.0 [facility] Comment on above: Performed By: #### Deborah GAMEZAT ####[facility] PATH[facility] SIHSQFKJWB2675 [place], MCHC (RBC) [Mass/Vol] 33.7 g/dL Normal 32.0-35.9 [facility] Comment on above: Performed By: #### Deborah GAMEZAT ####[facility] PATHOLOGY WWTFWWSACV6737 [place], MCV (RBC) [Entitic vol] 93 fL Normal 80-100 [facility] Comment on above: Performed By: #### Deborah GAMEZAT ####S PATHOLOGY RHVKSCKHFW0935 [place], MONOCYTE DISTRIBUTION WIDTH Normal [facility] Comment on above: Performed By: #### Deborah GAMEZAT ####S PATHOLOGY NWTKCSJSCC2609 [place], Monocytes (Bld) [#/Vol] 1.89 10*3/uL High 0.20-1.[address] [facility] Comment on above: Performed By: #### Deborah GAMEZAT ####[facility] PATHOLOGY DVFBDHSQFK2061 [place], Monocytes/100 WBC (Bld) 10.0 % Normal 2.0-11.0 [facility] Comment on above: Performed By: #### Deborah GAMEZAT ####S PATHOLOGY NWDAURFFSY0563 [place], Neutrophils (Bld) [#/Vol] 15.95 10*3/uL High 1.50-8.00 [facility] Comment on above: Performed By: #### Deborah GAMEZAT ####S PATHOLOGY PHVSXADGDY2084 [place], Neutrophils/100 WBC (Bld) 84.4 % High 31.0-76.[address] [facility] Comment on above: Performed By: #### Deborah GAMEZAT ####S PATHOLOGY QYYBXHPFUP0631 [place], Platelet mean volume (Bld) [Entitic vol] 9.9 fL Normal 7.5-11.2 [facility] Comment on above: Performed By: #### C BCDSAT ####[facility] HIZZFLPREY4139 [place], Platelets (Bld) [#/Vol] 210 10*3/uL Normal 150-400 [facility] Comment on above: Performed By: #### C BCDSAT ####S PATHOLOGY KMXHGCPCMN1454 [place], RBC (Bld) [#/Vol] 3.07 10*6/uL Low 4.50-5.90 [facility] Comment on above: Performed By: #### C BCDSAT ####[facility] PATH[facility] GAFQLRRPDD7091 [place], WBC (Bld) [#/Vol] 18.9 10*3/uL High 4.5-11.5 [facility] Comment on above: Performed By: #### C BCDSAT ####S PATHOLOGY FBKSNGVVDI2967 [place], CTA GI BLEEDon 03-23-2021 CTA GI BLEED Normal [facility] Care Plan Noteon 03-23-2021 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 Authentication Interface Message Text Normal [facility] 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 Authentication Interface Message Text Normal [facility] Consultson 03-23-2021 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 Authentication Interface Message Text Normal [facility] 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 Authentication Interface Message Text ACUTE PHYSICAL THERAPY Attempted to see patient for PT visit this date. Patient refused treatment this date due to just getting back from [place] and c/o being too tired. Will follow up as able. Heidi Lambert PT Normal [facility] 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 Authentication Interface Message Text Normal [facility] 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 Authentication Interface Message Text Normal [facility] GLUCOSE, FINGERSTICK-IN OFFI CEon 03-23-2021 Glucose [Mass/Vol] 216 mg/dL High 80-116 [facility] Comment on above: Result Comment: Salvador jovel RN, APN, MD Performed By: #### 8 [id number] ####NURSING GLUCOSE TJNOUJC3155 [place], Glucose [Mass/Vol] 221 mg/dL High 80-116 [facility] Comment on above: Result Comment: Salvador jovel RN, APN, MD Performed By: #### 8 [id number] ####NURSING GLUCOSE XNCRWDG8145 [place], [address] Glucose [Mass/Vol] 237 mg/dL High 80-116 [facility] Comment on above: Performed By: #### 8 2948 ####NURSING GLUCOSE MYQIXKX2225 [place], [address] Glucose [Mass/Vol] 266 mg/dL High 80-116 [facility] Comment on above: Result Comment: Salvador jovel RN, APN, MD Performed By: #### 8 2948 ####NURSING GLUCOSE DEHAVUH9965 [place], [address] MAGNESIUMon 03-23-2021 Magnesium [Mass/Vol] 2.2 mg/dL Normal 1.6-2.8 [facility] Comment on above: Result Comment: Hemo lysis present Performed By: #### C H8, MG, PHOS ####[facility] PATH[facility] [address]STSHMMW[address] [place] [address], PHOSPHORUSon 03-23-2021 Phosphate [Mass/Vol] 3.8 mg/dL Normal 2.3-4.2 [facility] Comment on above: Performed By: #### C H8, MG, PHOS ####[facility] PATH[facility] PUYTMBQKTP4598 [place], Progress Noteson 03-23-2021 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 Authentication Interface Message Text Normal [facility] 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 Authentication Interface Message Text Normal [facility] 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 Authentication Interface Message Text Normal [facility] 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 Authentication Interface Message Text Normal [facility] 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 Authentication Interface Message Text Normal [facility] 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 Authentication Interface Message Text Normal [facility] BASIC METABOLIC PANELon - Anion gap [Moles/Vol] 17 mmol/L Normal 03-23 [facility] Comment on above: Performed By: #### C H8, HEPATIC, MG, PHOS, TRIG ####[facility] PATH[facility] [id number] [place], Calcium [Mass/Vol] 8.4 mg/dL Normal 8.4-10.4 [facility] Comment on above: Performed By: #### C H8, HEPATIC, MG, PHOS, TRIG ####[facility] PATHOLOGY ZPLAVRESKJ8618 [place], Chloride [Moles/Vol] 103 mmol/L Normal 97-111 [facility] Comment on above: Performed By: #### C H8, HEPATIC, MG, PHOS, TRIG ####[facility] PATH[facility]Y CSDQEMFROB7240 [place], CO2 [Moles/Vol] 23 mmol/L Normal 21-30 [facility] Comment on above: Performed By: #### C H8, HEPATIC, MG, PHOS, TRIG ####[facility] PATHOLOGY DZFRSORQNJ8941 [place], Creatinine [Mass/Vol] 1.03 mg/dL Normal 0.80-1.30 [facility] Comment on above: Performed By: #### C H8, HEPATIC, MG, PHOS, TRIG ####S PATHOLOGY TQPAUGIBRF9627 [place], ESTIMATED GFR (CKD-EPI) 71 mL/min/1.73sqm Normal >=60 [facility] Comment on above: Performed By: #### C H8, HEPATIC, MG, PHOS, TRIG ####[facility] PATH[facility] CMABQWZBGP6805 [place], Glucose [Mass/Vol] 205 mg/dL High 80-116 [facility] Comment on above: Performed By: #### C H8, HEPATIC, MG, PHOS, TRIG ####[facility] PATH[facility] VESQLMVPCI2127 [place], Potassium [Moles/Vol] 3.5 mmol/L Normal 3.3-5.3 [facility] Comment on above: Performed By: #### C H8, HEPATIC, MG, PHOS, TRIG ####[facility] PATH[facility]Y YXZCRZPHVW3004 [place], Sodium [Moles/Vol] 139 mmol/L Normal 135-148 [facility] Comment on above: Performed By: #### C H8, HEPATIC, MG, PHOS, TRIG ####[facility] PATHOLOGY ARYWJMPUIE2342 [place], Urea nitrogen [Mass/Vol] 24 mg/dL High 8-22 [facility] Comment on above: Performed By: #### C H8, HEPATIC, MG, PHOS, TRIG ####[facility] YOJSXAWLIR8538 [place], CBC WITH DIFFERENTIALon 03-04 Erythrocyte distribution width (RBC) [Ratio] 14.1 % Normal 11.5-14.5 [facility] Comment on above: Performed By: #### M DIFF, CBCDSAT ####S PATHOLOGY FXXFSWHPAK0016 [place], Hematocrit (Bld) [Volume fraction] 29.6 % Low 41.0-53.0 [facility] Comment on above: Performed By: #### M DIFF, CBCDSAT ####S PATHOLOGY DZDBNXZMWY8785 [place], Hemoglobin (Bld) [Mass/Vol] 9.9 g/dL Low 13.9-16.3 [facility] Comment on above: Performed By: #### M DIFF, CBCDSAT ####S PATHOLOGY OYNMDTEASS3681 [place], MCH (RBC) [Entitic mass] 30.9 pg Normal 26.0-34.0 [facility] Comment on above: Performed By: #### M DIFF, CBCDSAT ####S PATHOLOGY UDGIIQIAUZ0494 [place], MCHC (RBC) [Mass/Vol] 33.6 g/dL Normal 32.0-35.9 [facility] Comment on above: Performed By: #### M DIFF, CBCDSAT ####S PATHOLOGY TUUARNWBGC7308 [place], MCV (RBC) [Entitic vol] 92 fL Normal 80-100 [facility] Comment on above: Performed By: #### M DIFF, CBCDSAT ####[facility] PATH[facility] XDYYOPXGNM5381 [place], MONOCYTE DISTRIBUTION WIDTH Normal [facility] Comment on above: Performed By: #### M DIFF, CBCDSAT ####[facility] PATHOLOGY LFYJMPCEYI7343 [place], Platelet mean volume (Bld) [Entitic vol] 9.6 fL Normal 7.5-11.2 [facility] Comment on above: Performed By: #### M DIFF, CBCDSAT ####[facility] PATHOLOGY EJOXUDYMTO3520 [place], Platelets (Bld) [#/Vol] 228 10*3/uL Normal 150-400 [facility] Comment on above: Performed By: #### M DIFF, CBCDSAT ####[facility] PATHOLOGY [address]ELBQL[address] [place] [address], RBC (Bld) [#/Vol] 3.22 10*6/uL Low 4.50-5.90 [facility] Comment on above: Performed By: #### M DIFF, CBCDSAT ####[facility] PATHOLOGY [id number] [place] [address], WBC (Bld) [#/Vol] 19.0 10*3/uL High 4.5-11.5 [facility] Comment on above: Performed By: #### M DIFF, CBCDSAT ####[facility] PATHOLOGY [id number] [place] [address], Basophils (Bld) [#/Vol] 0.06 10*3/uL Normal 0.00-0.20 [facility] Comment on above: Performed By: #### C BCDSAT ####[facility] PATHOLOGY [id number] [place] [address], Basophils/100 WBC (Bld) 0.4 % Normal <=1.9 [facility] Comment on above: Performed By: #### C BCDSAT ####[facility] PATHOLOGY [id number] [place] [address], Eosinophils (Bld) [#/Vol] 0.38 10*3/uL Normal 0.00-0.70 [facility] Comment on above: Performed By: #### C BCDSAT ####[facility] PATHOLOGY [id number] [place] [address], Eosinophils/100 WBC (Bld) 2.8 % Normal 0.1-4.0 [facility] Comment on above: Performed By: #### Deborah GAMEZAT ####[facility] PATHOLOGY [id number] [place], [place], Erythrocyte distribution width (RBC) [Ratio] 14.4 % Normal 11.5-14.5 [facility] Comment on above: Performed By: #### Deborah GMAEZAT ####[facility] PATHOLOGY [id number] [place], [place], Hematocrit (Bld) [Volume fraction] 33.1 % Low 41.0-53.0 [facility] Comment on above: Performed By: #### Deborah GAMEZAT ####[facility] PATHOLOGY [id number] [place] [address], Hemoglobin (Bld) [Mass/Vol] 10.9 g/dL Low 13.9-16.3 [facility] Comment on above: Performed By: #### Deborah GAMEZAT ####[facility] PATHOLOGY [id number] [place] [address], Lymphocytes (Bld) [#/Vol] 1.15 10*3/uL Normal 1.00-4.80 [facility] Comment on above: Performed By: #### Deborah GAMEZAT ####[facility] PATHOLOGY MLGMEERRCE9669 [place], Lymphocytes/100 WBC (Bld) 8.5 % Low 24.0-44.0 [facility] Comment on above: Performed By: #### C VERAAT ####S PATHOLOGY BZEAHLVPCG7189 [place], MCH (RBC) [Entitic mass] 30.4 pg Normal 26.0-34.0 [facility] Comment on above: Performed By: #### C VERAAT ####S PATHOLOGY BTWQUXHGUA5066 [place], MCHC (RBC) [Mass/Vol] 32.9 g/dL Normal 32.0-35.9 [facility] Comment on above: Performed By: #### C VERAAT ####[facility] DNOSEWVGNL9059 [place], MCV (RBC) [Entitic vol] 93 fL Normal 80-100 [facility] Comment on above: Performed By: #### Deborah GAMEZAT ####S PATHOLOGY DCAGTBMXUI1766 [place], MONOCYTE DISTRIBUTION WIDTH Normal [facility] Comment on above: Performed By: #### Deborah GAMEZAT ####S PATHOLOGY [id number] [place], Monocytes (Bld) [#/Vol] 1.74 10*3/uL High 0.20-1.00 [facility] Comment on above: Performed By: #### C VERAAT ####[facility] PATHOLOGY TVSSRIBOOM9237 [place], Monocytes/100 WBC (Bld) 12.9 % High 2.0-11.0 [facility] Comment on above: Performed By: #### Deborah GAMEZAT ####[facility] PATHOLOGY [id number] [place], Neutrophils (Bld) [#/Vol] 10.24 10*3/uL High 1.50-8.00 [facility] Comment on above: Performed By: #### Deborah GAMEZAT ####S PATHOLOGY AAONKMHOYX7014 [place], Neutrophils/100 WBC (Bld) 75.5 % Normal 31.0-76.[address] [facility] Comment on above: Performed By: #### Deborah GAMEZAT ####S PATHOLOGY JJWXQNVCKR5017 [place], Platelet mean volume (Bld) [Entitic vol] 9.5 fL Normal 7.5-11.2 [facility] Comment on above: Performed By: #### Deborah GAMEZAT ####S PATHOLOGY FHIUWWIAYW5778 [place], Platelets (Bld) [#/Vol] 200 10*3/uL Normal 150-400 [facility] Comment on above: Performed By: #### C BCDSAT ####[facility] [id number] [place], RBC (Bld) [#/Vol] 3.58 10*6/uL Low 4.50-5.90 [facility] Comment on above: Performed By: #### C BCDSAT ####[facility] FXKCDLVNWY0991 [place], WBC (Bld) [#/Vol] 13.6 10*3/uL High 4.5-11.5 [facility] Comment on above: Performed By: #### C BCDSAT ####S PATHOLOGY QPFDYESZTU6435 [place], [place], CT PELVIS W/ CONTRASTon 03-04 CT PELVIS W/ CONTRAST Normal [facility] Care Plan Noteon 03-22-2021 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 Authentication Interface Message Text Normal [facility] Consultson 03-22-2021 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 Authentication Interface Message Text Normal [facility] 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 Authentication Interface Message Text Normal [facility] 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 Authentication Interface Message Text Normal [facility] 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 Authentication Interface Message Text Physical Therapy New consult received. Pt currently on program. Please see notes in EPIC Lesa Taylor, PT Normal [facility] GLUCOSE, FINGERSTICK-IN OFFI CEon 03-22-2021 Glucose [Mass/Vol] 235 mg/dL High 80-116 [facility] Comment on above: Result Comment: Salvador jovel RN, APN, MD Performed By: #### 8 [id number] ####NURSING GLUCOSE [id number] [place], [address] Glucose [Mass/Vol] 186 mg/dL High 80-116 [facility] Comment on above: Result Comment: Salvador jovel RN, APN, MD Performed By: #### 8 8688 ####NURSING GLUCOSE CBWMKVC5750 [place], [address] Glucose [Mass/Vol] 173 mg/dL High 80-116 [facility] Comment on above: Result Comment: Salvador jovel RN, APN, MD Performed By: #### 8 0018 ####NURSING GLUCOSE QSLQCSH6635 [place], [address] HEPATIC FUNCTION PANELon Albumin [Mass/Vol] 2.7 g/dL Low 3.4-5.1 [facility] Comment on above: Performed By: #### Deborah H8, HEPATIC, MG, PHOS, TRIG ####S PATHOLOGY GCZYNFIJKI9596 [place], ALK 70 IU/L Normal 40-200 [facility] Comment on above: Performed By: #### Deborah H8, HEPATIC, MG, PHOS, TRIG ####[facility] PATHOLOGY [id number] [place], ALT [Catalytic activity/Vol] 53 U/L High 7-40 [facility] Comment on above: Performed By: #### Deborah H8, HEPATIC, MG, PHOS, TRIG ####[facility] PATHOLOGY [id number] [place], AST [Catalytic activity/Vol] 38 U/L Normal 7-40 [facility] Comment on above: Performed By: #### Deborah H8, HEPATIC, MG, PHOS, TRIG ####S PATHOLOGY [id number] [place], Bilirubin [Mass/Vol] 1.1 mg/dL Normal 0.1-1.5 [facility] Comment on above: Performed By: #### Deborah H8, HEPATIC, MG, PHOS, TRIG ####S PATHOLOGY [id number] [place], Bilirubin.direct [Mass/Vol] 0.40 mg/dL High 0.10-0.30 [facility] Comment on above: Performed By: #### Deborah H8, HEPATIC, MG, PHOS, TRIG ####S PATHOLOGY TCSOJWQSXM6185 [place], Protein [Mass/Vol] 5.8 g/dL Normal 5.7-8.1 [facility] Comment on above: Performed By: #### Deborah H8, HEPATIC, MG, PHOS, TRIG ####[facility] PATHOLOGY [id number] [place], MAGNESIUMon 03-22-2021 Magnesium [Mass/Vol] 1.9 mg/dL Normal 1.6-2.8 [facility] [place] [facility] Comment on above: Performed By: #### C H8, HEPATIC, MG, PHOS, TRIG ####[facility] PIZIQDQWFF2116 [place], MANUAL DIFF AND MORPHon 10- BANDS % BY MANUAL COUNT 1 % Normal <=10 [facility] [place] [facility] Comment on above: Performed By: #### M DIFF, CBCDSAT ####S PATHOLOGY TDZYCQLWVQ0812 [place], BANDS ABS BY MANUAL COUNT 0.19 K/uL High <0.01 [facility] Comment on above: Performed By: #### M DIFF, CBCDSAT ####S PATHOLOGY NQIGIZJRTX5338 [place], CELLS COUNTED TOTAL # IN BLOOD 100 Normal [facility] [place] [facility] Comment on above: Performed By: #### M DIFF, CBCDSAT ####S PATHOLOGY IMZICASFQE6028 [place], LYMPHOCYTES % BY MANUAL COUNT 5.0 % Low 24.0-44.0 [facility] [place] [facility] Comment on above: Performed By: #### M DIFF, CBCDSAT ####S PATHOLOGY QQSNLKTLOX1978 [place], LYMPHOCYTES ABS BY MANUAL COUNT 0.95 K/uL Low 1.00-4.80 [facility] [place] [facility] Comment on above: Performed By: #### M DIFF, CBCDSAT ####[facility] VGMXBOWASY5218 [place], METAMYELOCYTES % BY MANUAL COUNT 1 % High <0 [facility] [place] [facility] Comment on above: Performed By: #### M DIFF, CBCDSAT ####S PATHOLOGY EXHMCJPBSZ3078 [place], METAMYELOCYTES ABS BY MANUAL COUNT 0.19 K/uL High <0.01 [facility] Comment on above: Performed By: #### M DIFF, CBCDSAT ####S PATHOLOGY DVOMHMZCXZ9261 [place], MONOCYTES % BY MANUAL COUNT 8.0 % Normal 2.0-11.0 [facility] Comment on above: Performed By: #### M DIFF, CBCDSAT ####[facility] PATHOLOGY BOETENGQVZ8651 [place], MONOCYTES ABS BY MANUAL COUNT 1.52 K/uL High 0.20-1.00 [facility] Comment on above: Performed By: #### M DIFF, CBCDSAT ####[facility] PATHOLOGY [id number] [place], NEUTROPHILS % BY MANUAL COUNT 85.0 % High 31.0-76.0 [facility] Comment on above: Performed By: #### M DIFF, CBCDSAT ####[facility] PATHOLOGY EXFNYAHTKT[address] [place] [address], NEUTROPHILS ABS BY MANUAL COUNT 16.15 K/uL High 1.50-8.00 [facility] Comment on above: Performed By: #### M DIFF, CBCDSAT ####[facility] PATHOLOGY XPSFBEAQJN[address] [place] [address], OVALOCYTES Few Normal [facility] Comment on above: Performed By: #### M DIFF, CBCDSAT ####[facility] PATHOLOGY [id number] [place] [address], POLYCHROMASIA Slight Normal [facility] Comment on above: Performed By: #### M DIFF, CBCDSAT ####[facility] PATHOLOGY [id number] [place] [address], Multidisciplinary Noteon 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 Authentication Interface Message Text Normal [facility] PARTIAL THROMBOPLASTIN TIMEo n 03-22-2021 aPTT Coag (Bld) [Time] 83 s High 25-37 [facility] [place] [facility] Comment on above: Performed By: #### A PTT, PT ####[facility] PATHOLOGY MELMOBPEPO[address] [place] [address], PHOSPHORUSon 03-22-2021 Phosphate [Mass/Vol] 2.7 mg/dL Normal 2.3-4.2 [facility] Comment on above: Performed By: #### C H8, HEPATIC, MG, PHOS, TRIG ####[facility] PATHOLOGY [id number] [place] [address], PROTHROMBIN TIME AND INRon INR Coag (PPP) [Relative time] 1.80 {INR} High 0.90-1.10 [facility] Comment on above: Performed By: #### A PTT, PT ####[facility] PATHOLOGY [id number] [place], PT Coag (PPP) [Time] 19.9 s High 9.7-12.9 [facility] Comment on above: Performed By: #### A PTT, PT ####[facility] PATHOLOGY [id number] [place] [address], Progress Noteson 03-22-2021 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 Authentication Interface Message Text 8:21 PM Attempted to call daughter with update about CT. Home number unidentified individual answered stating they were not the listed contact Dominique Landon. No answer on mobile number. Will plan to update tomorrow or if she calls. Normal [facility] 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 Authentication Interface Message Text Normal [facility] 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 Authentication Interface Message Text Normal [facility] 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 Authentication Interface Message Text Normal [facility] 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 Authentication Interface Message Text Normal [facility] TRIGLYCERIDESon 03-22-2021 Triglyceride [Mass/Vol] 143 mg/dL Normal <151 [facility] Comment on above: Performed By: #### C H8, HEPATIC, MG, PHOS, TRIG ####[facility] PATHOLOGY [id number] [place], BASIC METABOLIC PANELon 03-04 Anion gap [Moles/Vol] 15 mmol/L Normal 10-20 [facility] Comment on above: Performed By: #### C H8, PHOS, HEPATIC, MG, TRIG ####S PATHOLOGY [id number] [place], Calcium [Mass/Vol] 8.3 mg/dL Low 8.4-10.4 [facility] Comment on above: Performed By: #### C H8, PHOS, HEPATIC, MG, TRIG ####S PATHOLOGY [id number] [place], Chloride [Moles/Vol] 102 mmol/L Normal 97-111 [facility] Comment on above: Performed By: #### C H8, PHOS, HEPATIC, MG, TRIG ####[facility] QRUIRSIAXD2393 [place], CO2 [Moles/Vol] 27 mmol/L Normal 21-30 [facility] Comment on above: Performed By: #### C H8, PHOS, HEPATIC, MG, TRIG ####[facility] RUHNHPZIQE0874 [place], Creatinine [Mass/Vol] 1.11 mg/dL Normal 0.80-1.30 [facility] Comment on above: Performed By: #### C H8, PHOS, HEPATIC, MG, TRIG ####[facility] WMOLDVRNBE1995 [place], ESTIMATED GFR (CKD-EPI) 65 mL/min/1.73sqm Normal >=60 [facility] Comment on above: Performed By: #### C H8, PHOS, HEPATIC, MG, TRIG ####[facility] [id number] [place] [address], Glucose [Mass/Vol] 238 mg/dL High 80-116 [facility] Comment on above: Performed By: #### C H8, PHOS, HEPATIC, MG, TRIG ####[facility] ENPUPBCBDR7401 [place], Potassium [Moles/Vol] 3.5 mmol/L Normal 3.3-5.3 [facility] Comment on above: Performed By: #### C H8, PHOS, HEPATIC, MG, TRIG ####[facility] PBOVACZJSG5158 [place], Sodium [Moles/Vol] 140 mmol/L Normal 135-148 [facility] Comment on above: Performed By: #### C H8, PHOS, HEPATIC, MG, TRIG ####[facility] [id number] [place], Urea nitrogen [Mass/Vol] 28 mg/dL High 8-22 [facility] Comment on above: Performed By: #### C H8, PHOS, HEPATIC, MG, TRIG ####S PATHOLOGY OHNDULTRYR4229 [place], CBC WITH DIFFERENTIALon 03-04 Basophils (Bld) [#/Vol] 0.08 10*3/uL Normal 0.00-0.20 [facility] Comment on above: Performed By: #### C BCDSAT ####[facility] PATHOLOGY [id number] [place], Basophils/100 WBC (Bld) 0.5 % Normal <=1.9 [facility] Comment on above: Performed By: #### C BCDSAT ####[facility] PATHOLOGY [id number] [place], Eosinophils (Bld) [#/Vol] 0.47 10*3/uL Normal 0.00-0.[address] [facility] Comment on above: Performed By: #### C BCDSAT ####[facility] PATHOLOGY EPFJSOYQNL[address] [place] [address], Eosinophils/100 WBC (Bld) 3.1 % Normal 0.1-4.0 [facility] Comment on above: Performed By: #### Deborah BCDSAT ####[facility] PATHOLOGY GWFXWQJNIK[address] [place] [address], Erythrocyte distribution width (RBC) [Ratio] 14.0 % Normal 11.5-14.[address] [facility] Comment on above: Performed By: #### C BCDSAT ####S PATHOLOGY JGWCLDBWJN1724 [place], Hematocrit (Bld) [Volume fraction] 33.7 % Low 41.0-53.0 [facility] Comment on above: Performed By: #### C BCDSAT ####S PATHOLOGY KLCAEUVBDG4443 [place], Hemoglobin (Bld) [Mass/Vol] 11.0 g/dL Low 13.9-16.[address] [facility] Comment on above: Performed By: #### C BCDSAT ####S PATHOLOGY [address]OQZFZF[address] [place] [address], Lymphocytes (Bld) [#/Vol] 1.19 10*3/uL Normal 1.00-4.80 [facility] Comment on above: Performed By: #### C VERAAT ####[facility] PATHOLOGY [id number] [place], Lymphocytes/100 WBC (Bld) 7.9 % Low 24.0-44.0 [facility] Comment on above: Performed By: #### C VERAAT ####[facility] PATHOLOGY XOODSSFUPY4660 [place], MCH (RBC) [Entitic mass] 30.5 pg Normal 26.0-34.0 [facility] Comment on above: Performed By: #### C VERAAT ####[facility] PATHOLOGY [id number] [place], MCHC (RBC) [Mass/Vol] 32.7 g/dL Normal 32.0-35.9 [facility] Comment on above: Performed By: #### Deborah GAMEZAT ####[facility] PATHOLOGY [id number] [place], MCV (RBC) [Entitic vol] 93 fL Normal 80-[address] [facility] Comment on above: Performed By: #### Deborah GAMEZAT ####[facility] PATHOLOGY [id number] [place], MONOCYTE DISTRIBUTION WIDTH Normal [facility] Comment on above: Performed By: #### Deborah GAMEZAT ####[facility] PATHOLOGY [id number] [place], Monocytes (Bld) [#/Vol] 1.98 10*3/uL High 0.20-1.00 [facility] Comment on above: Performed By: #### Deborah GAMEZAT ####[facility] PATHOLOGY CAGIZUXFTS1729 [place], Monocytes/100 WBC (Bld) 13.3 % High 2.0-11.0 [facility] Comment on above: Performed By: #### Deborah GAMEZAT ####[facility] PATHOLOGY [id number] [place], Neutrophils (Bld) [#/Vol] 11.25 10*3/uL High 1.50-8.00 [facility] Comment on above: Performed By: #### C BCDSAT ####[facility] PATHOLOGY [id number] [place], Neutrophils/100 WBC (Bld) 75.2 % Normal 31.0-76.0 [facility] Comment on above: Performed By: #### C HUMERADSAT ####[facility] PATHOLOGY [id number] [place], Platelet mean volume (Bld) [Entitic vol] 9.8 fL Normal 7.5-11.2 [facility] Comment on above: Performed By: #### C HUMERADSAT ####[facility] PATHOLOGY [id number] [place] [address], Platelets (Bld) [#/Vol] 172 10*3/uL Normal 150-400 [facility] Comment on above: Performed By: #### C VERAAT ####[facility] PATHOLOGY EEEOIEKCKY1725 [place], RBC (Bld) [#/Vol] 3.62 10*6/uL Low 4.50-5.90 [facility] Comment on above: Performed By: #### C HUMERADSAT ####[facility] PATHOLOGY JPKGWEITKU7186 [place], WBC (Bld) [#/Vol] 15.0 10*3/uL High 4.5-11.5 [facility] Comment on above: Performed By: #### C BCDSAT ####[facility] PATHOLOGY [id number] [place], Care Plan Noteon 03-21-2021 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 Authentication Interface Message Text Normal [facility] Consultson 03-21-2021 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 Authentication Interface Message Text Normal [facility] GLUCOSE, FINGERSTICK-IN OFFI CEon 03-21-2021 Glucose [Mass/Vol] 164 mg/dL High 80-116 [facility] Comment on above: Result Comment: Salvador jovel RN, APN, MD Performed By: #### 8 2948 ####NURSING GLUCOSE HIJSZHP2300 [place], [address] Glucose [Mass/Vol] 192 mg/dL High 80-116 [facility] Comment on above: Result Comment: Salvador jovel RN, APN, MD Performed By: #### 8 2948 ####NURSING GLUCOSE EPEWNEJ1780 [place], [address] Glucose [Mass/Vol] 201 mg/dL High 80-116 [facility] Comment on above: Result Comment: Salvador jovel RN, APN, MD Performed By: #### 8 2948 ####NURSING GLUCOSE FXBKUNV6136 [place], [address] Glucose [Mass/Vol] 230 mg/dL High 80-116 [facility] Comment on above: Performed By: #### 8 2948 ####NURSING GLUCOSE TEIUCFZ2072 [place], [address] HEPATIC FUNCTION PANELon Albumin [Mass/Vol] 2.7 g/dL Low 3.4-5.1 [facility] Comment on above: Performed By: #### C H8, PHOS, HEPATIC, MG, TRIG ####[facility] LEAPRFXEFX3891 [place], ALK 62 IU/L Normal 40-200 [facility] Comment on above: Performed By: #### C H8, PHOS, HEPATIC, MG, TRIG ####[facility] [id number] [place], ALT [Catalytic activity/Vol] 53 U/L High 7-40 [facility] Comment on above: Performed By: #### C H8, PHOS, HEPATIC, MG, TRIG ####[facility] [id number] [place], AST [Catalytic activity/Vol] 42 U/L High 7-40 [facility] Comment on above: Performed By: #### C H8, PHOS, HEPATIC, MG, TRIG ####[facility] FVYOAFBPOM4330 [place], Bilirubin [Mass/Vol] 1.3 mg/dL Normal 0.1-1.5 [facility] Comment on above: Performed By: #### C H8, PHOS, HEPATIC, MG, TRIG ####[facility] ENWVFJZZWQ0964 [place], Bilirubin.direct [Mass/Vol] 0.50 mg/dL High 0.10-0.30 [facility] Comment on above: Performed By: #### C H8, PHOS, HEPATIC, MG, TRIG ####[facility] TKVINTBGHY4429 [place], Protein [Mass/Vol] 5.9 g/dL Normal 5.7-8.1 [facility] Comment on above: Performed By: #### C H8, PHOS, HEPATIC, MG, TRIG ####[facility] TQONNMMJIW3508 [place], MAGNESIUMon 03-21-2021 Magnesium [Mass/Vol] 2.1 mg/dL Normal 1.6-2.[address] [facility] Comment on above: Performed By: #### C H8, PHOS, HEPATIC, MG, TRIG ####[facility] [id number] [place], Multidisciplinary Noteon 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 Authentication Interface Message Text Normal [facility] PARTIAL THROMBOPLASTIN TIMEo n 03-21-2021 aPTT Coag (Bld) [Time] 81 s High 25-37 [facility] Comment on above: Performed By: #### A PTT ####[facility] FZMWIAYNTO6884 [place], PHOSPHORUSon 03-21-2021 Phosphate [Mass/Vol] 2.9 mg/dL Normal 2.3-4.2 [facility] Comment on above: Performed By: #### C H8, PHOS, HEPATIC, MG, TRIG ####[facility] [id number] [place], Progress Noteson 03-21-2021 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 Authentication Interface Message Text Normal [facility] 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 Authentication Interface Message Text Normal [facility] 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 Authentication Interface Message Text Normal [facility] 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 Authentication Interface Message Text Normal [facility] TRIGLYCERIDESon 03-21-2021 Triglyceride [Mass/Vol] 131 mg/dL Normal <151 [facility] Comment on above: Performed By: #### C H8, PHOS, HEPATIC, MG, TRIG ####[facility] CUBPNPQVLX0822 [place], 1:1 Interactionon 03-20-2021 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 Authentication Interface Message Text Normal [facility] BASIC METABOLIC PANELon 03-04 Anion gap [Moles/Vol] 15 mmol/L Normal 10-20 [facility] Comment on above: Performed By: #### C H8, MG, PHOS ####[facility] WMWFCEUNCO1421 [place], Calcium [Mass/Vol] 8.3 mg/dL Low 8.4-10.4 [facility] Comment on above: Performed By: #### C H8, MG, PHOS ####[facility] [id number] [place], Chloride [Moles/Vol] 101 mmol/L Normal 97-111 [facility] [place] [facility] Comment on above: Performed By: #### C H8, MG, PHOS ####[facility] [id number] [place], CO2 [Moles/Vol] 27 mmol/L Normal 21-30 [facility] Comment on above: Performed By: #### C H8, MG, PHOS ####[facility] [id number] [place], [place], Creatinine [Mass/Vol] 1.09 mg/dL Normal 0.80-1.30 [facility] [place] [facility] Comment on above: Performed By: #### C H8, MG, PHOS ####[facility] [id number] [place], [place], ESTIMATED GFR (CKD-EPI) 66 mL/min/1.73sqm Normal >=60 [facility] [place] [facility] Comment on above: Performed By: #### C H8, MG, PHOS ####[facility] [id number] [place], [place], Glucose [Mass/Vol] 369 mg/dL High 80-116 [facility] [facility] Comment on above: Performed By: #### MG Méndez PHOS ####[facility] BTOYMGCFSZ4102 [place], [place], Potassium [Moles/Vol] 3.9 mmol/L Normal 3.3-5.3 [facility] Comment on above: Performed By: #### MG Méndez PHOS ####[facility] ATVQCGORLT8257 [place], Sodium [Moles/Vol] 139 mmol/L Normal 135-148 [facility] Comment on above: Performed By: #### MG Méndez PHOS ####[facility] AIMDVPWUDY1386 [place], Urea nitrogen [Mass/Vol] 27 mg/dL High 8-22 [facility] Comment on above: Performed By: #### MG Méndez PHOS ####[facility] JOCSYIOJOE8311 [place], Anion gap [Moles/Vol] 14 mmol/L Normal 10-20 [facility] Comment on above: Performed By: #### Deborah H8 ####[facility] AJSKZUDTWE4101 [place], Calcium [Mass/Vol] 7.8 mg/dL Low 8.4-10.4 [facility] Comment on above: Performed By: #### C H8 ####[facility] YIURUGKLDZ6983 [place], Chloride [Moles/Vol] 101 mmol/L Normal 97-111 [facility] Comment on above: Performed By: #### C H8 ####[facility] BQWJTZUUHZ9997 [place], CO2 [Moles/Vol] 27 mmol/L Normal 21-30 [facility] Comment on above: Performed By: #### C H8 ####[facility] FQRJAHBMKA9911 [place], Creatinine [Mass/Vol] 1.22 mg/dL Normal 0.80-1.30 [facility] Comment on above: Performed By: #### C H8 ####[facility] PATHOLOGY NHXWHUQYRS1024 [place], ESTIMATED GFR (CKD-EPI) 58 mL/min/1.73sqm Low >=60 [facility] Comment on above: Performed By: #### C H8 ####[facility] PATHOLOGY UCRFVAJGKS7316 [place], Glucose [Mass/Vol] 411 mg/dL High 80-116 [facility] Comment on above: Performed By: #### C H8 ####[facility] PATHOLOGY RUBPOILIKD2262 [place], Potassium [Moles/Vol] 3.1 mmol/L Low 3.3-5.3 [facility] Comment on above: Performed By: #### C H8 ####[facility] PATHOLOGY CWYWKVDXPX1487 [place], Sodium [Moles/Vol] 139 mmol/L Normal 135-148 [facility] Comment on above: Performed By: #### C H8 ####[facility] PATHOLOGY ZMHOLAOUDZ7204 [place], Urea nitrogen [Mass/Vol] 26 mg/dL High 8-22 [facility] Comment on above: Performed By: #### C H8 ####[facility] PATHOLOGY LCREBHFZWJ4552 [place], CBC WITH DIFFERENTIALon 03-04 Basophils (Bld) [#/Vol] 0.07 10*3/uL Normal 0.00-0.20 [facility] Comment on above: Performed By: #### C BCDSAT ####S PATHOLOGY HFBPFOHYTE8057 [place], Basophils/100 WBC (Bld) 0.5 % Normal <=1.9 [facility] Comment on above: Performed By: #### C BCDSAT ####[facility] PATHOLOGY QTXRDTIRCD9720 [place], Eosinophils (Bld) [#/Vol] 0.10 10*3/uL Normal 0.00-0.70 [facility] Comment on above: Performed By: #### C BCDSAT ####[facility] PATHOLOGY QSYOOKUWQA9644 [place], Eosinophils/100 WBC (Bld) 0.7 % Normal 0.1-4.0 [facility] Comment on above: Performed By: #### C HUMERADSAT ####[facility] PATHOLOGY GDOZVGKLNE[address] [place] [address], Erythrocyte distribution width (RBC) [Ratio] 13.9 % Normal 11.5-14.[address] [facility] Comment on above: Performed By: #### C VERAAT ####[facility] PATHOLOGY BIDYKFOGPX[address] [place] [address], Hematocrit (Bld) [Volume fraction] 34.3 % Low 41.0-53.[address] [facility] [facility] Comment on above: Performed By: #### C VERAAT ####[facility] PATHOLOGY OKNGDQHXFY[address] [place] [address], Hemoglobin (Bld) [Mass/Vol] 11.4 g/dL Low 13.9-16.[address] [facility] Comment on above: Performed By: #### C VERAAT ####[facility] PATHOLOGY CIUGMHOGBC84[address] [place] [address], Lymphocytes (Bld) [#/Vol] 0.82 10*3/uL Low 1.00-4.[address] [facility] Comment on above: Performed By: #### C BCDSAT ####[facility] PATHOLOGY CCJHZZKPLG6[address] [place] [address], Lymphocytes/100 WBC (Bld) 5.9 % Low 24.0-44.[address] [facility] Comment on above: Performed By: #### C VERAAT ####[facility] PATHOLOGY REQQRJBWHD0499[address] [place] [address], MCH (RBC) [Entitic mass] 30.9 pg Normal 26.0-34.[address] [facility] Comment on above: Performed By: #### C VERAAT ####[facility] PATHOLOGY LHZUDGUARU[address] [place] [address], MCHC (RBC) [Mass/Vol] 33.4 g/dL Normal 32.0-35.9 [facility] Comment on above: Performed By: #### Deborah GAMEZAT ####[facility] PATHOLOGY ARAHXGTBUG0994 [place], MCV (RBC) [Entitic vol] 93 fL Normal 80-100 [facility] Comment on above: Performed By: #### C VERAAT ####[facility] PATHOLOGY UYFFLBGCUI6826 [place], MONOCYTE DISTRIBUTION WIDTH Normal [facility] Comment on above: Performed By: #### C VERAAT ####[facility] PATHOLOGY JFLLSVSKLO5199 [place], Monocytes (Bld) [#/Vol] 1.55 10*3/uL High 0.20-1.00 [facility] Comment on above: Performed By: #### Deborah GAMEZAT ####[facility] PATHOLOGY WFOPSQHRQK[address] [place] [address], Monocytes/100 WBC (Bld) 11.2 % High 2.0-11.0 [facility] Comment on above: Performed By: #### Deborah GAMEZAT ####[facility] PATHOLOGY OWJUYWRBKX[address] [place] [address], Neutrophils (Bld) [#/Vol] 11.38 10*3/uL High 1.50-8.00 [facility] Comment on above: Performed By: #### Deborah GAMEZAT ####[facility] PATHOLOGY YDFKRFZWAC5557 [place], Neutrophils/100 WBC (Bld) 81.8 % High 31.0-76.0 [facility] Comment on above: Performed By: #### Deborah GAMEZAT ####S PATHOLOGY LZCSMNCPCU0379 [place], Platelet mean volume (Bld) [Entitic vol] 9.7 fL Normal 7.5-11.2 [facility] Comment on above: Performed By: #### Deborah GAMEZAT ####[facility] PATHOLOGY KDWMDVALDO2047 [place], Platelets (Bld) [#/Vol] 171 10*3/uL Normal 150-400 [facility] Comment on above: Performed By: #### Deborah GAMEZAT ####S PATHOLOGY FCYCFINBRQ[address] [place] [address], RBC (Bld) [#/Vol] 3.70 10*6/uL Low 4.50-5.90 [facility] Comment on above: Performed By: #### Deborah GAMEZAT ####S PATHOLOGY LSHWZVKRIK7836 [place], WBC (Bld) [#/Vol] 13.9 10*3/uL High 4.5-11.5 [facility] Comment on above: Performed By: #### Deborah GAMEZAT ####[facility] PATHOLOGY LMQNLAKDAD[address] [place] [address], Care Plan Noteon 03-20-2021 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 Authentication Interface Message Text Normal [facility] GLUCOSE, FINGERSTICK-IN OFFI CEon 03-20-2021 Glucose [Mass/Vol] 271 mg/dL High 80-116 [facility] Comment on above: Result Comment: Salvador jovel RN, APN, MD Performed By: #### 8 [id number] ####NURSING GLUCOSE LLCNZAZ4973 [place], [address] Glucose [Mass/Vol] 296 mg/dL High 80-116 [facility] Comment on above: Result Comment: Salvador jovel RN, APN, MD Performed By: #### 8 5659 ####NURSING GLUCOSE GTSJRRC4511 [place], [address] Glucose [Mass/Vol] 328 mg/dL High 80-116 [facility] Comment on above: Result Comment: Foll ow Protocol Performed By: #### 8 3613 ####NURSING GLUCOSE ESUDNMN6273 [place], [address] Glucose [Mass/Vol] 363 mg/dL High 80-116 [facility] Comment on above: Performed By: #### 8 7417 ####NURSING GLUCOSE NEQVFWY8158 [place], [address] Glucose [Mass/Vol] 368 mg/dL High 80-116 [facility] Comment on above: Result Comment: Foll ow Protocol Performed By: #### 8 2948 ####NURSING GLUCOSE VDNIMAH1377 [place], MAGNESIUMon 03-20-2021 Magnesium [Mass/Vol] 2.5 mg/dL Normal 1.6-2.8 [facility] Comment on above: Performed By: #### Deborah Jeronimo, MG, PHOS ####[facility] IGFDTCQQND0960 [place], Multidisciplinary Noteon 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 Authentication Interface Message Text Normal [facility] PARTIAL THROMBOPLASTIN TIMEo n 03-20-2021 aPTT Coag (Bld) [Time] 86 s High 25-37 [facility] Comment on above: Performed By: #### A PTT ####[facility] SUZRKJVFQD6416 [place], aPTT Coag (Bld) [Time] 103 s Critically high 25-37 [facility] Comment on above: Performed By: #### A PTT ####[facility] FVTLSOHVEL0235 [place], aPTT Coag (Bld) [Time] 32 s Normal 25-37 [facility] Comment on above: Performed By: #### A PTT ####[facility] TOHMIUJZJW5758 [place], PHOSPHORUSon 03-20-2021 Phosphate [Mass/Vol] 2.5 mg/dL Normal 2.3-4.2 [facility] Comment on above: Performed By: #### Deborah H8, MG, PHOS ####[facility] MGENNBXFSK1904 [place], Progress Noteson 03-20-2021 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 Authentication Interface Message Text Normal [facility] 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 Authentication Interface Message Text Normal [facility] 1:1 Interactionon 03-19-2021 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 Authentication Interface Message Text Normal [facility] BASIC METABOLIC PANELon 10- Anion gap [Moles/Vol] 24 mmol/L High 10-20 [facility] Comment on above: Performed By: #### C H8, MG, PHOS ####[facility] KFIJQPYFYV4014 [place], Calcium [Mass/Vol] 7.8 mg/dL Low 8.4-10.4 [facility] Comment on above: Performed By: #### C H8, MG, PHOS ####[facility] MAMYQOZUIZ3135 [place], Chloride [Moles/Vol] 101 mmol/L Normal 97-[address] [facility] Comment on above: Performed By: #### C H8, MG, PHOS ####[facility] QSPDYDHYMK1763 [place], CO2 [Moles/Vol] 19 mmol/L Low 21-30 [facility] Comment on above: Performed By: #### Deborah H8, MG, PHOS ####[facility] JRIVNYETGS8462 [place], Creatinine [Mass/Vol] 1.05 mg/dL Normal 0.80-1.[address] [facility] Comment on above: Performed By: #### Deborah HClementina, MG, PHOS ####[facility] LMEESZKBWJ6426 [place], ESTIMATED GFR (CKD-EPI) 69 mL/min/1.73sqm Normal >=60 [facility] Comment on above: Performed By: #### C H8, MG, PHOS ####[facility] CHFQKOIAXH0928 [place], Glucose [Mass/Vol] 370 mg/dL High 80-116 [facility] Comment on above: Performed By: #### C H8, MG, PHOS ####[facility] KYVBSTXNLG4033 [place], Potassium [Moles/Vol] 7.8 mmol/L Critically high 3.3-5.3 [facility] Comment on above: Result Comment: Hemo lysis present Performed By: #### C H8, MG, PHOS ####[facility] AABAMSLKFR5317 [place], Sodium [Moles/Vol] 136 mmol/L Normal 135-148 [facility] Comment on above: Performed By: #### MG Méndez PHOS ####[facility] IZNACMUJYM8592 [place], Urea nitrogen [Mass/Vol] 25 mg/dL High 8-22 [facility] Comment on above: Performed By: #### MG Dev PHOS ####[facility] FSNVZZLONU4032 [place], Anion gap [Moles/Vol] 17 mmol/L Normal 10-20 [facility] Comment on above: Performed By: #### MG Méndez PHOS ####[facility] PATH[facility] KROYDIAWBC[address] [place] [address], Calcium [Mass/Vol] 8.6 mg/dL Normal 8.4-10.4 [facility] Comment on above: Performed By: #### MG Méndez PHOS ####[facility] PATH[facility] ZBRVUMPRBU566[address] [place] [address], Chloride [Moles/Vol] 99 mmol/L Normal 97-111 [facility] Comment on above: Performed By: #### MG Méndez PHOS ####[facility] PATH[facility] NZCPSOHBBU3944[address] [place] [address], CO2 [Moles/Vol] 25 mmol/L Normal 21-30 [facility] Comment on above: Performed By: #### MG Méndez PHOS ####[facility] NMMRCRGLJP5404 [place], Creatinine [Mass/Vol] 1.09 mg/dL Normal 0.80-1.30 [facility] Comment on above: Performed By: #### MG Méndez PHOS ####[facility] YYXLDHXEQY8129 [place], ESTIMATED GFR (CKD-EPI) 66 mL/min/1.73sqm Normal >=60 [facility] Comment on above: Performed By: #### MG Dev PHOS ####[facility] JWXHLTHVOM2314 [place], Glucose [Mass/Vol] 378 mg/dL High 80-116 [facility] Comment on above: Performed By: #### MG Méndez PHOS ####[facility] PATHOLOGY UNKFQNLTBD2070 [place], Potassium [Moles/Vol] 4.1 mmol/L Normal 3.3-5.3 [facility] Comment on above: Performed By: #### C MG Phani PHOCk ####[facility] PATHOLOGY PYBBJCZHZT1208 [place], Sodium [Moles/Vol] 137 mmol/L Normal 135-148 [facility] Comment on above: Performed By: #### MG Méndez PHOS ####[facility] PATHOLOGY LSGCSPQHXJ865[address] [place] [address], Urea nitrogen [Mass/Vol] 17 mg/dL Normal 8-22 [facility] Comment on above: Performed By: #### MG Méndez PHOS ####[facility] PATHOLOGY HYLTENJOSN1010 [place], BLOOD CULTUREon 03-19-2021 Bacteria identified Cx Nom (Bld) C BLOOD: No Growth Normal [facility] Comment on above: Performed By: #### C BLOOD ####[facility] [address] [place], [place] [id number] BLOOD GAS, ARTERIALon 2020 CR BARI 3.6 mmol/L High -2.0-2.0 [facility] Comment on above: Performed By: #### C R BGA ####[facility] PATHOLOGY JSCWUEBDRJ4037 [place], CR PCO2 35.0 mm Hg Normal 35.0-45.0 [facility] Comment on above: Performed By: #### C R BGA ####[facility] PATHOLOGY WUGXLVNINH4611 [place], CR PHA 7.490 High 7.35-7.45 [facility] Comment on above: Performed By: #### C R BGA ####[facility] OJBVLRWEDB4905 [place], CR PO2 82 mm Hg Normal 80-100 [facility] Comment on above: Performed By: #### C R BGA ####[facility] PATHOLOGY HUSAZZJQFI2091 [place], FIO2 (CATEGORY) 5 LPM Normal [facility] Comment on above: Performed By: #### C R BGA ####[facility] PATHOLOGY YXALANTFEP[address] [place] [address], HCO3 (Bld) [Moles/Vol] 26 mmol/L Normal 22-28 [facility] Comment on above: Performed By: #### C R BGA ####[facility] PATHOLOGY DHZLKPTFJC7[address] [place] [address], MODE Nasal Canula Normal [facility] Comment on above: Performed By: #### C R BGA ####[facility] PATHOLOGY SLNTYHPYAB[address] [place] [address], Oxygen saturation in Blood 96.9 % Normal >=95.1 [facility] Comment on above: Performed By: #### C R BGA ####[facility] PATHOLOGY UAQJINVFWL413[address] [place] [address], CR BARI 3.9 mmol/L High -2.0-2.0 [facility] Comment on above: Performed By: #### C R BGA ####[facility] PATHOLOGY MMZODIGXRZ425[address] [place] [address], CR PCO2 32.4 mm Hg Low 35.0-45.0 [facility] Comment on above: Performed By: #### C R BGA ####[facility] PATHOLOGY TRQVMFCKCF[address] [place] [address], CR PHA 7.516 High 7.35-7.45 [facility] Comment on above: Performed By: #### C R BGA ####[facility] PATHOLOGY IPUJDVMEWI45[address] [place] [address], CR PO2 72 mm Hg Low 80-100 [facility] Comment on above: Performed By: #### C R BGA ####[facility] USPDSLMAWF[address] [place] [address], FIO2 (CATEGORY) 5 LPM Normal [facility] Comment on above: Performed By: #### C R BGA ####[facility] PATHOLOGY JMCJPUQDSK8709 [place], HCO3 (Bld) [Moles/Vol] 26 mmol/L Normal 22-28 [facility] Comment on above: Performed By: #### C R BGA ####[facility] PATHOLOGY ZMZTSPVKEF[address] [place] [address], MODE Nasal Canula Normal [facility] Comment on above: Performed By: #### C R BGA ####[facility] PATHOLOGY BGFFHZDMXS032[address] [place] [address], Oxygen saturation in Blood 95.5 % Normal >=95.1 [facility] Comment on above: Performed By: #### C R BGA ####[facility] PATHOLOGY MPHPBPRKBM[address] [place] [address], CBC WITH DIFFERENTIALon 10 Erythrocyte distribution width (RBC) [Ratio] 14.0 % Normal 11.5-14.5 [facility] Comment on above: Performed By: #### M DIFF, CBCDSAT ####[facility] PATHOLOGY EUJYUESHZF11[address] [place] [address], Hematocrit (Bld) [Volume fraction] 39.2 % Low 41.0-53.0 [facility] Comment on above: Performed By: #### M DIFF, CBCDSAT ####[facility] PATHOLOGY UYUOCNIFMU50[address] [place] [address], Hemoglobin (Bld) [Mass/Vol] 12.8 g/dL Low 13.9-16.3 [facility] Comment on above: Performed By: #### M DIFF, CBCDSAT ####[facility] PATHOLOGY PHOMQOAUOO[address] [place] [address], MCH (RBC) [Entitic mass] 30.2 pg Normal 26.0-34.0 [facility] Comment on above: Performed By: #### M DIFF, CBCDSAT ####[facility] PATHOLOGY URIHWHXMGM01[address] [place] [address], MCHC (RBC) [Mass/Vol] 32.6 g/dL Normal 32.0-35.9 [facility] Comment on above: Performed By: #### M DIFF, CBCDSAT ####S PATHOLOGY VITDIMTPNS5236 [place], MCV (RBC) [Entitic vol] 93 fL Normal 80-100 [facility] Comment on above: Performed By: #### M DIFF, CBCDSAT ####[facility] PATHOLOGY ILWZXDYEYT8378 [place], MONOCYTE DISTRIBUTION WIDTH Normal [facility] Comment on above: Performed By: #### M DIFF, CBCDSAT ####S PATHOLOGY LBOYLWRXBC2326 [place], Platelet mean volume (Bld) [Entitic vol] 9.1 fL Normal 7.5-11.2 [facility] Comment on above: Performed By: #### M DIFF, CBCDSAT ####[facility] PATHOLOGY LDDHBHQYRQ1000 [place], Platelets (Bld) [#/Vol] 211 10*3/uL Normal 150-400 [facility] Comment on above: Performed By: #### M DIFF, CBCDSAT ####S PATHOLOGY ZPJWCMPVYJ1378 [place], RBC (Bld) [#/Vol] 4.24 10*6/uL Low 4.50-5.90 [facility] Comment on above: Performed By: #### M DIFF, CBCDSAT ####[facility] PATHOLOGY ENBMCBTNLG4037 [place], WBC (Bld) [#/Vol] 22.0 10*3/uL High 4.5-11.5 [facility] Comment on above: Performed By: #### M DIFF, CBCDSAT ####S PATHOLOGY ZWYCVBTFQV2386 [place], [place], CT CHEST W/ CONTRASTon 03-19 CT CHEST W/ CONTRAST Normal [facility] CT HEAD W/O CONTRASTon 03-19 CT HEAD W/O CONTRAST Normal [facility] Care Plan Noteon 03-19-2021 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 Authentication Interface Message Text Normal [facility] Consultson 03-19-2021 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 Authentication Interface Message Text Normal [facility] GLUCOSE, FINGERSTICK-IN OFFI CEon 03-19-2021 Glucose [Mass/Vol] 330 mg/dL High 80-116 [facility] Comment on above: Result Comment: Salvador jovel RN, APN, MD Performed By: #### 8 2948 ####NURSING GLUCOSE IRWAHET1691 [place], [address] Glucose [Mass/Vol] 316 mg/dL High 80-116 [facility] Comment on above: Result Comment: Foll ow Protocol Performed By: #### 8 2948 ####NURSING GLUCOSE XXNWWEI7479 [place], [address] Glucose [Mass/Vol] 282 mg/dL High 80-116 [facility] Comment on above: Result Comment: Salvador jovel RN, APN, MD Performed By: #### 8 2948 ####NURSING GLUCOSE XIGORGY6869 [place], [address] HEPATIC FUNCTION PANELon Albumin [Mass/Vol] 2.8 g/dL Low 3.4-5.1 [facility] Comment on above: Performed By: #### H EDUAR TRIG ####[facility] CHEHVALNSZ5851 [place], ALK 63 IU/L Normal 40-200 [facility] Comment on above: Performed By: #### H EDUAR TRIG ####[facility] XGTMSJXBCG1700 [place], ALT [Catalytic activity/Vol] 44 U/L High 7-40 [facility] Comment on above: Performed By: #### H EDUAR TRIG ####[facility] QEJLQLMPZY0855 [place], AST [Catalytic activity/Vol] 55 U/L High 7-40 [facility] Comment on above: Result Comment: Hemo lysis present Performed By: #### H EDUAR TRIG ####[facility] HZLKWVJFVI2937 [place], Bilirubin [Mass/Vol] 2.1 mg/dL High 0.1-1.5 [facility] Comment on above: Performed By: #### Case WITT, TRIG ####S PATHOLOGY KISLFMDSRN3854 [place], Bilirubin.direct [Mass/Vol] 0.60 mg/dL High 0.10-0.30 [facility] Comment on above: Performed By: #### Case WITT, TRIG ####S PATHOLOGY HZGRXJLXXR4067 [place], Protein [Mass/Vol] 5.8 g/dL Normal 5.7-8.1 [facility] Comment on above: Performed By: #### H EDUAR, TRIG ####S PATHOLOGY KQPWPBHENK8226 [place], MAGNESIUMon 03-19-2021 Magnesium [Mass/Vol] 2.3 mg/dL Normal 1.6-2.8 [facility] Comment on above: Result Comment: Hemo lysis present Performed By: #### Dbeorah H8, MG, PHOS ####S PATHOLOGY BAOOGDOWMJ6840 [place], Magnesium [Mass/Vol] 1.6 mg/dL Normal 1.6-2.8 [facility] Comment on above: Performed By: #### Deborah H8, MG, PHOS ####S PATHOLOGY [id number] [place], [place], MANUAL DIFF AND MORPHon 03-04 CELLS COUNTED TOTAL # IN BLOOD 100 Normal [facility] Comment on above: Performed By: #### M DIFF, CBCDSAT ####S PATHOLOGY [id number] [place], [place], MONOCYTES % BY MANUAL COUNT 8.0 % Normal 2.0-11.0 [facility] Comment on above: Performed By: #### M DIFF, CBCDSAT ####S PATHOLOGY [id number] [place], [place], MONOCYTES ABS BY MANUAL COUNT 1.76 K/uL High 0.20-1.00 [facility] Comment on above: Performed By: #### M DIFF, CBCDSAT ####[facility] PATHOLOGY [id number] [place], [place], NEUTROPHILS % BY MANUAL COUNT 92.0 % High 31.0-76.0 [facility] Comment on above: Performed By: #### M DIFF, CBCDSAT ####[facility] PATHOLOGY [id number] [place], [place], NEUTROPHILS ABS BY MANUAL COUNT 20.24 K/uL High 1.50-8.00 [facility] Comment on above: Performed By: #### M DIFF, CBCDSAT ####[facility] PATHOLOGY SERAGFJIQO5977 [place], [place], POLYCHROMASIA Slight Normal [facility] Comment on above: Performed By: #### M DIFF, CBCDSAT ####[facility] PATHOLOGY GDCAFDQGCZ9841 [place], [place], MRSA SCREENon 03-19-2021 MRSA DNA MICHELLE+probe Ql (Unsp spec) CMR: No methicillin resistant Staphylococcus aureus isolated. Normal No methicillin resistant Staphylococcus aureus isolated. [facility] Comment on above: Performed By: #### C MR ####[facility] [address] [place], [place] PARTIAL THROMBOPLASTIN TIMEo n 03-19-2021 aPTT Coag (Bld) [Time] 64 s High 25-37 [facility] Comment on above: Performed By: #### A PTT ####[facility] PATHOLOGY [address] [place] [address], aPTT Coag (Bld) [Time] 36 s Normal 25-37 [facility] Comment on above: Performed By: #### A PTT ####[facility] PATHOLOGY PULDKVENGM1014 [place], PHOSPHORUSon 03-19-2021 Phosphate [Mass/Vol] 2.2 mg/dL Low 2.3-4.2 [facility] Comment on above: Performed By: #### C H8, MG, PHOS ####[facility] PATHOLOGY SOUJSIASZI6299 [place], Phosphate [Mass/Vol] 1.5 mg/dL Low 2.3-4.2 [facility] Comment on above: Performed By: #### C H8, MG, PHOS ####[facility] EKRUIIDBXZ3813 [place], [place], Procedureson 03-19-2021 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 Authentication Interface Message Text Normal [facility] Progress Noteson 03-19-2021 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 Authentication Interface Message Text Dr Rebollar notified of critical Potassium of 7.8 hemolyzed, read back result. Will continue to monitor. Normal [facility] 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 Authentication Interface Message Text Normal [facility] RESPIRATORY CULTURE, MISCon 03-19-2021 RESPIRATORY CULTURE, MISC Normal [facility] Comment on above: Performed By: #### C RESP ####[facility] [address] [place], [place] TRIGLYCERIDESon 03-19-2021 Triglyceride [Mass/Vol] 161 mg/dL High <151 [facility] Comment on above: Performed By: #### H EPATIC, TRIG ####[facility] BMMRKZZYUR6215 [place], [place], XR CHEST 1 VIEW AP OR PAon XR CHEST 1 VIEW AP OR PA Normal [facility] BASIC METABOLIC PANELon 03-04 Anion gap [Moles/Vol] 16 mmol/L Normal 10-20 [facility] Comment on above: Performed By: #### P HOS, MG, CH8 ####[facility] KXOPTRLBZV1262 [place], Calcium [Mass/Vol] 8.6 mg/dL Normal 8.4-10.4 [facility] Comment on above: Performed By: #### P HOS, MG, CH8 ####[facility] IMZJKRIOSU3714 [place], Chloride [Moles/Vol] 103 mmol/L Normal 97-111 [facility] Comment on above: Performed By: #### P HOS, MG, CH8 ####[facility] MKIQOUBULH4712 [place], CO2 [Moles/Vol] 24 mmol/L Normal 21-30 [facility] Comment on above: Performed By: #### P HOS, MG, CH8 ####[facility] RHBGQEJUGN8599 [place], Creatinine [Mass/Vol] 1.04 mg/dL Normal 0.80-1.30 [facility] Comment on above: Performed By: #### P HOS MG, CH8 ####[facility] FETGRSHCJH8543 [place], ESTIMATED GFR (CKD-EPI) 70 mL/min/1.73sqm Normal >=60 [facility] Comment on above: Performed By: #### P HOS MG, CH8 ####[facility] QTAMSGBSNM[address] [place] [address], Glucose [Mass/Vol] 214 mg/dL High 80-116 [facility] Comment on above: Performed By: #### P HOS MG, CH8 ####S PATHOLOGY WBOMZVGSKQ[address] [place] [address], Potassium [Moles/Vol] 3.9 mmol/L Normal 3.3-5.3 [facility] Comment on above: Performed By: #### P HOS MG, CH8 ####[facility] BNBAKQUTBL[address] [place] [address], Sodium [Moles/Vol] 139 mmol/L Normal 135-148 [facility] Comment on above: Performed By: #### P HOS MG, CH8 ####S PATHOLOGY NHWYGMKSEJ6139 [place], Urea nitrogen [Mass/Vol] 10 mg/dL Normal 8-22 [facility] Comment on above: Performed By: #### P HOS, MG, CH8 ####[facility] LFCHHFLWGL[address] [place] [address], CBC WITH DIFFERENTIALon 03-04 Erythrocyte distribution width (RBC) [Ratio] 13.8 % Normal 11.5-14.5 [facility] Comment on above: Performed By: #### M DIFF, CBCDSAT ####[facility] [id number] [place], Hematocrit (Bld) [Volume fraction] 38.3 % Low 41.0-53.0 [facility] Comment on above: Performed By: #### M DIFF, CBCDSAT ####[facility] PATHOLOGY HHFFSXQNMQ6859 [place], Hemoglobin (Bld) [Mass/Vol] 12.7 g/dL Low 13.9-16.3 [facility] Comment on above: Performed By: #### M DIFF, CBCDSAT ####[facility] PATHOLOGY CCYWBVABFL2067 [place], MCH (RBC) [Entitic mass] 30.6 pg Normal 26.0-34.0 [facility] Comment on above: Performed By: #### M DIFF, CBCDSAT ####[facility] PATHOLOGY LEKUVITRWP[address] [place] [address], MCHC (RBC) [Mass/Vol] 33.3 g/dL Normal 32.0-35.9 [facility] Comment on above: Performed By: #### M DIFF, CBCDSAT ####[facility] PATHOLOGY [id number] [place], MCV (RBC) [Entitic vol] 92 fL Normal 80-100 [facility] Comment on above: Performed By: #### M DIFF, CBCDSAT ####[facility] PATHOLOGY QIJCVAYDDG6690 [place], MONOCYTE DISTRIBUTION WIDTH Normal [facility] Comment on above: Performed By: #### M DIFF, CBCDSAT ####[facility] PATHOLOGY [id number] [place], Platelet mean volume (Bld) [Entitic vol] 9.0 fL Normal 7.5-11.2 [facility] Comment on above: Performed By: #### M DIFF, CBCDSAT ####[facility] PATHOLOGY LXZIFBREYZ[address] [place] [address], Platelets (Bld) [#/Vol] 209 10*3/uL Normal 150-400 [facility] Comment on above: Performed By: #### M DIFF, CBCDSAT ####[facility] DWHZSQZLDR3190 [place], RBC (Bld) [#/Vol] 4.17 10*6/uL Low 4.50-5.90 [facility] Comment on above: Performed By: #### M DIFF, CBCDSAT ####[facility] PFMFVHYLOH0679 [place], WBC (Bld) [#/Vol] 16.9 10*3/uL High 4.5-11.5 [facility] Comment on above: Performed By: #### M DIFF, CBCDSAT ####[facility] YRMVXDEQUZ0947 [place], Care Plan Noteon 03-18-2021 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 Authentication Interface Message Text Normal [facility] GLUCOSE, FINGERSTICK-IN OFFI CEon 03-18-2021 Glucose [Mass/Vol] 234 mg/dL High 80-116 [facility] Comment on above: Performed By: #### 8 8742 ####NURSING GLUCOSE SJLCPFP2091 [place], [address] Glucose [Mass/Vol] 216 mg/dL High 80-116 [facility] Comment on above: Result Comment: Salvador jovel RN, APN, MD Performed By: #### 8 8860 ####NURSING GLUCOSE FYZRUOB8384 [place], [address] Glucose [Mass/Vol] 197 mg/dL High 80-116 [facility] Comment on above: Result Comment: Salvador jovel RN, APN, MD Performed By: #### 8 1312 ####NURSING GLUCOSE QYNUNVK5201 [place], [address] Glucose [Mass/Vol] 200 mg/dL High 80-116 [facility] Comment on above: Result Comment: Salvador jovel RN, APN, MD Performed By: #### 8 3530 ####NURSING GLUCOSE VXPSNFH2200 [place], [address] MAGNESIUMon 03-18-2021 Magnesium [Mass/Vol] 1.8 mg/dL Normal 1.6-2.8 [facility] Comment on above: Performed By: #### P HOS, MG, CH8 ####[facility] DAXRNGLOBL0783 [place], MANUAL DIFF AND MORPHon 10 ANISOCYTOSIS Slight Normal [facility] Comment on above: Performed By: #### M DIFF, CBCDSAT ####S PATHOLOGY VHPMYCJPKY2274 [place], CELLS COUNTED TOTAL # IN BLOOD 100 Normal [facility] Comment on above: Performed By: #### M DIFF, CBCDSAT ####[facility] PATHOLOGY IRIBRTPDOS5210 [place], LYMPHOCYTES % BY MANUAL COUNT 7.0 % Low 24.0-44.0 [facility] Comment on above: Performed By: #### M DIFF, CBCDSAT ####[facility] PATHOLOGY OUIYIMWWEG4599 [place], LYMPHOCYTES ABS BY MANUAL COUNT 1.18 K/uL Normal 1.00-4.80 [facility] Comment on above: Performed By: #### M DIFF, CBCDSAT ####[facility] PATHOLOGY [id number] [place], MONOCYTES % BY MANUAL COUNT 11.0 % Normal 2.0-11.0 [facility] Comment on above: Performed By: #### M DIFF, CBCDSAT ####[facility] PATHOLOGY XPTFVHZORL[address] [place] [address], MONOCYTES ABS BY MANUAL COUNT 1.86 K/uL High 0.20-1.00 [facility] Comment on above: Performed By: #### M DIFF, CBCDSAT ####[facility] PATHOLOGY PQDLYHAHIZ7030 [place], NEUTROPHILS % BY MANUAL COUNT 82.0 % High 31.0-76.0 [facility] Comment on above: Performed By: #### M DIFF, CBCDSAT ####S PATHOLOGY UAIZLMBUTQ7761 [place], NEUTROPHILS ABS BY MANUAL COUNT 13.86 K/uL High 1.50-8.00 [facility] Comment on above: Performed By: #### M DIFF, CBCDSAT ####S PATHOLOGY QWMLGYXBJG6671 [place], POLYCHROMASIA Slight Normal [facility] Comment on above: Performed By: #### M DIFF, CBCDSAT ####S PATHOLOGY XKFOMINRYT8205 [place], PARTIAL THROMBOPLASTIN TIMEo n 03-18-2021 aPTT Coag (Bld) [Time] 60 s High 25-37 [facility] Comment on above: Performed By: #### A PTT ####[facility] PATHOLOGY CQGAHDPBAX5360 [place], PHOSPHORUSon 03-18-2021 Phosphate [Mass/Vol] 1.5 mg/dL Low 2.3-4.2 [facility] Comment on above: Performed By: #### P HOS ####[facility] PATHOLOGY IWCBXOBOAW0220 [place], Phosphate [Mass/Vol] 2.1 mg/dL Low 2.3-4.2 [facility] Comment on above: Performed By: #### P HOS, MG, CH8 ####[facility] PATHOLOGY IHAIAOQTXC1682 [place], Progress Noteson 03-18-2021 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 Authentication Interface Message Text Normal [facility] 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 Authentication Interface Message Text Normal [facility] 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 Authentication Interface Message Text Normal [facility] 1:1 Interactionon 03-17-2021 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 Authentication Interface Message Text Normal [facility] BASIC METABOLIC PANELon 03-04 Anion gap [Moles/Vol] 12 mmol/L Normal -20 [facility] Comment on above: Performed By: #### T RIG, CH8, HEPATIC, PHOS, MG ####S PATHOLOGY DWYSFURMAM3789 [place], Calcium [Mass/Vol] 8.0 mg/dL Low 8.4-10.4 [facility] Comment on above: Performed By: #### T RIG, CH8, HEPATIC, PHOS, MG ####[facility] TTSSZTZVYD5551 [place], Chloride [Moles/Vol] 107 mmol/L Normal 97-111 [facility] Comment on above: Performed By: #### T RIG, CH8, HEPATIC, PHOS, MG ####[facility] GKXAIKSXRK7166 [place], CO2 [Moles/Vol] 24 mmol/L Normal 21-30 [facility] Comment on above: Performed By: #### T RIG, CH8, HEPATIC, PHOS, MG ####[facility] XHILAAHCAP0906 [place], Creatinine [Mass/Vol] 1.08 mg/dL Normal 0.80-1.30 [facility] Comment on above: Performed By: #### T RIG, CH8, HEPATIC, PHOS, MG ####[facility] TAYTOEDVBK5915 [place], ESTIMATED GFR (CKD-EPI) 67 mL/min/1.73sqm Normal >=60 [facility] Comment on above: Performed By: #### T RIG, CH8, HEPATIC, PHOS, MG ####[facility] QYDPTXJIYY3977 [place], Glucose [Mass/Vol] 126 mg/dL High 80-116 [facility] Comment on above: Performed By: #### T RIG, CH8, HEPATIC, PHOS, MG ####[facility] JUENCHQCLM8317 [place], Potassium [Moles/Vol] 4.0 mmol/L Normal 3.3-5.3 [facility] Comment on above: Performed By: #### T RIG, CH8, HEPATIC, PHOS, MG ####[facility] UYLQGNXIQX5067 [place], Sodium [Moles/Vol] 139 mmol/L Normal 135-148 [facility] Comment on above: Performed By: #### T RIG, CH8, HEPATIC, PHOS, MG ####[facility] XLQAFUZXIY1066 [place], Urea nitrogen [Mass/Vol] 13 mg/dL Normal 8-22 [facility] Comment on above: Performed By: #### T RIG, CH8, HEPATIC, PHOS, MG ####[facility] PATHOLOGY STAJZDTQYQ5647 [place], BLOOD GAS, ARTERIALon 2020 CR BARI -0.3 mmol/L Normal -2.0-2.0 [facility] Comment on above: Performed By: #### C R BGA ####[facility] PATHOLOGY SKKUZAXBCD1062 [place], CR PCO2 44.2 mm Hg Normal 35.0-45.0 [facility] Comment on above: Performed By: #### C R BGA ####[facility] PATHOLOGY DTEOCPEHSE2532 [place], CR PHA 7.366 Normal 7.35-7.45 [facility] Comment on above: Performed By: #### C R BGA ####[facility] PATHOLOGY LOSAWVXGOO6784 [place], CR PO2 89 mm Hg Normal 80-100 [facility] Comment on above: Performed By: #### C R BGA ####[facility] PATHOLOGY BCJPYAKYWU9857 [place], FIO2 (CATEGORY) 40% Normal [facility] Comment on above: Performed By: #### C R BGA ####[facility] PATHOLOGY QGMBNWAXDR9450 [place], HCO3 (Bld) [Moles/Vol] 25 mmol/L Normal 22-28 [facility] Comment on above: Performed By: #### C R BGA ####[facility] PATHOLOGY ADGUDEZIAG0762 [place], MODE Vent Normal [facility] Comment on above: Performed By: #### C R BGA ####[facility] PATHOLOGY ZIBAGBTGUD6222 [place], Oxygen saturation in Blood 96.6 % Normal >=95.[address] [facility] Comment on above: Performed By: #### C R BGA ####[facility] PATHOLOGY FSBJUIVSGN2006 [place], CBC WITH DIFFERENTIALon 03-04 Erythrocyte distribution width (RBC) [Ratio] 13.8 % Normal 11.5-14.5 [facility] Comment on above: Performed By: #### M DIFF, CBCDSAT ####[facility] PATHOLOGY FKFTESMPWS[address] [place] [address], Hematocrit (Bld) [Volume fraction] 35.0 % Low 41.0-53.0 [facility] Comment on above: Performed By: #### M DIFF, CBCDSAT ####[facility] PATHOLOGY RXPYDKSCAU[address] [place] [address], Hemoglobin (Bld) [Mass/Vol] 11.9 g/dL Low 13.9-16.3 [facility] Comment on above: Performed By: #### M DIFF, CBCDSAT ####[facility] PATHOLOGY FBNDDTCNZO[address] [place] [address], MCH (RBC) [Entitic mass] 30.9 pg Normal 26.0-34.0 [facility] Comment on above: Performed By: #### M DIFF, CBCDSAT ####[facility] PATHOLOGY UIVNMOKXIK43[address] [place] [address], MCHC (RBC) [Mass/Vol] 34.0 g/dL Normal 32.0-35.9 [facility] Comment on above: Performed By: #### M DIFF, CBCDSAT ####[facility] PATHOLOGY VZYKXCYQGW[address] [place] [address], MCV (RBC) [Entitic vol] 91 fL Normal 80-100 [facility] Comment on above: Performed By: #### M DIFF, CBCDSAT ####[facility] PATHOLOGY IJCYXUPEEZ512[address] [place] [address], MONOCYTE DISTRIBUTION WIDTH Normal [facility] Comment on above: Performed By: #### M DIFF, CBCDSAT ####[facility] PATHOLOGY EJYPRSXWTD[address] [place] [address], Platelet mean volume (Bld) [Entitic vol] 9.1 fL Normal 7.5-11.2 [facility] Comment on above: Performed By: #### M DIFF, CBCDSAT ####[facility] PATHOLOGY YYZWGAPAST1476 [place], Platelets (Bld) [#/Vol] 183 10*3/uL Normal 150-400 [facility] Comment on above: Performed By: #### M DIFF, CBCDSAT ####[facility] PATHOLOGY MIFYQMFWBA4943 [place], RBC (Bld) [#/Vol] 3.86 10*6/uL Low 4.50-5.90 [facility] Comment on above: Performed By: #### M DIFF, CBCDSAT ####[facility] PATHOLOGY JKMTMIAWXH4448 [place], WBC (Bld) [#/Vol] 10.7 10*3/uL Normal 4.5-11.5 [facility] Comment on above: Performed By: #### M DIFF, CBCDSAT ####[facility] PATHOLOGY DMVJAOOIDH[address] [place] [address], Basophils (Bld) [#/Vol] 0.06 10*3/uL Normal 0.00-0.20 [facility] Comment on above: Performed By: #### C BCDSAT ####[facility] PATHOLOGY HEACDLGPRC2269 [place], Basophils/100 WBC (Bld) 0.7 % Normal <=1.9 [facility] Comment on above: Performed By: #### C BCDSAT ####[facility] PATHOLOGY VRCCTOYVGP0983 [place], Eosinophils (Bld) [#/Vol] 0.38 10*3/uL Normal 0.00-0.70 [facility] Comment on above: Performed By: #### C BCDSAT ####[facility] PATHOLOGY WOJRYWJQXK9248 [place], Eosinophils/100 WBC (Bld) 4.0 % Normal 0.1-4.0 [facility] Comment on above: Performed By: #### C BCDSAT ####[facility] PATHOLOGY KVLWGNFYZP6723 [place], Erythrocyte distribution width (RBC) [Ratio] 13.8 % Normal 11.5-14.5 [facility] Comment on above: Performed By: #### C BCDSAT ####[facility] PATHOLOGY CBNUKSZYMY2869 [place], Hematocrit (Bld) [Volume fraction] 33.5 % Low 41.0-53.0 [facility] Comment on above: Performed By: #### C BCDSAT ####[facility] PATHOLOGY WBMBEIZKUJ4947 [place], Hemoglobin (Bld) [Mass/Vol] 11.1 g/dL Low 13.9-16.3 [facility] Comment on above: Performed By: #### C BCDSAT ####[facility] PATHOLOGY DUYWNFZYCN8942 [place], Lymphocytes (Bld) [#/Vol] 0.98 10*3/uL Low 1.00-4.80 [facility] Comment on above: Performed By: #### C BCDSAT ####[facility] PATHOLOGY HOJUVBVISM64[address] [place] [address], Lymphocytes/100 WBC (Bld) 10.3 % Low 24.0-44.0 [facility] Comment on above: Performed By: #### C BCDSAT ####[facility] PATHOLOGY AOPSGFNXIC99[address] [place] [address], MCH (RBC) [Entitic mass] 30.2 pg Normal 26.0-34.0 [facility] Comment on above: Performed By: #### C BCDSAT ####[facility] PATHOLOGY JTSMWMUNZZ22[address] [place] [address], MCHC (RBC) [Mass/Vol] 33.0 g/dL Normal 32.0-35.9 [facility] Comment on above: Performed By: #### C BCDSAT ####S PATHOLOGY ZKOUZINRTY5155 [place], MCV (RBC) [Entitic vol] 91 fL Normal 80-100 [facility] Comment on above: Performed By: #### C BCDSAT ####[facility] PATHOLOGY TQKHXBPSAK3002 [place], MONOCYTE DISTRIBUTION WIDTH Normal [facility] Comment on above: Performed By: #### C BCDSAT ####[facility] PATHOLOGY [id number] [place], Monocytes (Bld) [#/Vol] 1.19 10*3/uL High 0.20-1.00 [facility] Comment on above: Performed By: #### C BCDSAT ####[facility] PATHOLOGY XOHUMOBFKL8394 [place], Monocytes/100 WBC (Bld) 12.4 % High 2.0-11.[address] [facility] Comment on above: Performed By: #### C BCDSAT ####[facility] PATHOLOGY VYYIWXHSTH2006 [place], Neutrophils (Bld) [#/Vol] 6.95 10*3/uL Normal 1.50-8.00 [facility] Comment on above: Performed By: #### C BCDSAT ####[facility] PATHOLOGY TDBWKVEYVT9[address] [place] [address], Neutrophils/100 WBC (Bld) 72.7 % Normal 31.0-76.0 [facility] Comment on above: Performed By: #### C BCDSAT ####[facility] PATHOLOGY XIHBOAVPLI0354 [place], Platelet mean volume (Bld) [Entitic vol] 8.9 fL Normal 7.5-11.2 [facility] Comment on above: Performed By: #### C BCDSAT ####[facility] PATHOLOGY UFMHTASFUM7807 [place], Platelets (Bld) [#/Vol] 174 10*3/uL Normal 150-400 [facility] Comment on above: Performed By: #### C BCDSAT ####S PATHOLOGY BDNQKIQNIQ2787 [place], RBC (Bld) [#/Vol] 3.67 10*6/uL Low 4.50-5.90 [facility] Comment on above: Performed By: #### C BCDSAT ####S PATHOLOGY WFKLUSGUWZ5384 [place], WBC (Bld) [#/Vol] 9.6 10*3/uL Normal 4.5-11.5 [facility] Comment on above: Performed By: #### C BCDSAT ####[facility] GEEKRMCFSD1570 [place], Care Plan Noteon 03-17-2021 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 Authentication Interface Message Text Normal [facility] Consultson 03-17-2021 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 Authentication Interface Message Text Normal [facility] 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 Authentication Interface Message Text Normal [facility] GLUCOSE, FINGERSTICK-IN OFFI CEon 03-17-2021 Glucose [Mass/Vol] 199 mg/dL High 80-116 [facility] Comment on above: Result Comment: Salvador jovel RN, APN, MD Performed By: #### 8 [id number] ####NURSING GLUCOSE [id number] [place], [address] Glucose [Mass/Vol] 144 mg/dL High 80-116 [facility] Comment on above: Result Comment: Foll ow Protocol Performed By: #### 8 2948 ####NURSING GLUCOSE [id number] [place], [address] Glucose [Mass/Vol] 131 mg/dL High 80-116 [facility] Comment on above: Result Comment: Foll ow Protocol Performed By: #### 8 2948 ####NURSING GLUCOSE [id number] [place], [address] Glucose [Mass/Vol] 107 mg/dL Normal 80-116 [facility] Comment on above: Result Comment: Salvador jovel RN, APN, MD Performed By: #### 8 [id number] ####NURSING GLUCOSE [id number] [place], [address] HEPATIC FUNCTION PANELon Albumin [Mass/Vol] 2.6 g/dL Low 3.4-5.1 [facility] Comment on above: Performed By: #### YOEL SANCHEZ, HEPATIC, PHOS, MG ####[facility] PATHOLOGY [id number] [place], [place], ALK 64 IU/L Normal 40-200 [facility] Comment on above: Performed By: #### T RIG, CH8, HEPATIC, PHOS, MG ####[facility] [id number] [place], [place], ALT [Catalytic activity/Vol] 30 U/L Normal 7-40 [facility] Comment on above: Performed By: #### T RIG, CH8, HEPATIC, PHOS, MG ####[facility] TBUDCDEKQY8210 [place], [place], AST [Catalytic activity/Vol] 25 U/L Normal 7-40 [facility] Comment on above: Performed By: #### T RIG, CH8, HEPATIC, PHOS, MG ####[facility] ANVNGKRJVB0508 [place], Bilirubin [Mass/Vol] 1.2 mg/dL Normal 0.1-1.5 [facility] Comment on above: Performed By: #### T RIG, CH8, HEPATIC, PHOS, MG ####S PATHOLOGY [id number] [place], Bilirubin.direct [Mass/Vol] 0.50 mg/dL High 0.10-0.30 [facility] Comment on above: Performed By: #### T RIG, CH8, HEPATIC, PHOS, MG ####[facility] [id number] [place], Protein [Mass/Vol] 5.4 g/dL Low 5.7-8.1 [facility] Comment on above: Performed By: #### T RIG, CH8, HEPATIC, PHOS, MG ####[facility] [id number] [place], MAGNESIUMon 03-17-2021 Magnesium [Mass/Vol] 2.1 mg/dL Normal 1.6-2.8 [facility] Comment on above: Performed By: #### T RIG, CH8, HEPATIC, PHOS, MG ####[facility] ZXAEQESWVJ3765 [place], MANUAL DIFF AND MORPHon 03-04 BASOPHILS % BY MANUAL COUNT 1.0 % Normal <=1.9 [facility] Comment on above: Performed By: #### M DIFF, CBCDSAT ####S PATHOLOGY [id number] [place], BASOPHILS ABS BY MANUAL COUNT 0.11 K/uL Normal 0.00-0.20 [facility] Comment on above: Performed By: #### M DIFF, CBCDSAT ####[facility] PATHOLOGY [id number] [place], CELLS COUNTED TOTAL # IN BLOOD 100 Normal [facility] Comment on above: Performed By: #### M DIFF, CBCDSAT ####[facility] PATHOLOGY [id number] [place], EOSINOPHILS % BY MANUAL COUNT 1.0 % Normal 0.1-4.0 [facility] Comment on above: Performed By: #### M DIFF, CBCDSAT ####[facility] PATHOLOGY JIOFLSXVZL[address] [place] [address], EOSINOPHILS ABS BY MANUAL COUNT 0.11 K/uL Normal 0.00-0.70 [facility] Comment on above: Performed By: #### M DIFF, CBCDSAT ####[facility] PATHOLOGY [id number] [place] [address], LYMPHOCYTES % BY MANUAL COUNT 11.0 % Low 24.0-44.0 [facility] Comment on above: Performed By: #### M DIFF, CBCDSAT ####[facility] PATHOLOGY PGUZGNSDOE[address] [place] [address], LYMPHOCYTES ABS BY MANUAL COUNT 1.18 K/uL Normal 1.00-4.80 [facility] Comment on above: Performed By: #### M DIFF, CBCDSAT ####[facility] PATHOLOGY [id number] [place] [address], METAMYELOCYTES % BY MANUAL COUNT 3 % High <0 [facility] Comment on above: Performed By: #### M DIFF, CBCDSAT ####S PATHOLOGY CAZPWCBMRE5514 [place], METAMYELOCYTES ABS BY MANUAL COUNT 0.32 K/uL High <0.01 [facility] Comment on above: Performed By: #### M DIFF, CBCDSAT ####[facility] [id number] [place], MONOCYTES % BY MANUAL COUNT 7.0 % Normal 2.0-11.0 [facility] Comment on above: Performed By: #### M DIFF, CBCDSAT ####S PATHOLOGY RKGZULIZAD0421 [place], MONOCYTES ABS BY MANUAL COUNT 0.75 K/uL Normal 0.20-1.00 [facility] Comment on above: Performed By: #### M DIFF, CBCDSAT ####[facility] PATHOLOGY [id number] [place], NEUTROPHILS % BY MANUAL COUNT 77.0 % High 31.0-76.0 [facility] Comment on above: Performed By: #### M DIFF, CBCDSAT ####[facility] PATHOLOGY [id number] [place], NEUTROPHILS ABS BY MANUAL COUNT 8.24 K/uL High 1.50-8.00 [facility] Comment on above: Performed By: #### M DIFF, CBCDSAT ####[facility] PATHOLOGY [id number] [place], RBC MORPHOLOGY Normal Normal [facility] Comment on above: Performed By: #### M DIFF, CBCDSAT ####[facility] PATHOLOGY [id number] [place], PARTIAL THROMBOPLASTIN TIMEo n 03-17-2021 aPTT Coag (Bld) [Time] 68 s High 25-37 [facility] Comment on above: Performed By: #### A PTT ####[facility] PATHOLOGY MCDYKLVBHI6655 [place], PHOSPHORUSon 03-17-2021 Phosphate [Mass/Vol] 3.6 mg/dL Normal 2.3-4.2 [facility] Comment on above: Performed By: #### T RIG, CH8, HEPATIC, PHOS, MG ####S PATHOLOGY [id number] [place], [place], Progress Noteson 03-17-2021 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 Authentication Interface Message Text Normal 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 Authentication Interface Message Text Normal [facility] 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 Authentication Interface Message Text Normal [facility] 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 Authentication Interface Message Text Normal [facility] TRIGLYCERIDESon 03-17-2021 Triglyceride [Mass/Vol] 191 mg/dL High <[address] [facility] Comment on above: Performed By: #### T RIG, CH8, HEPATIC, PHOS, MG ####[facility] GSREHMLFXN7388 [place], 1:1 Interactionon 03-16-2021 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 Authentication Interface Message Text Normal [facility] BASIC METABOLIC PANELon 03-04 Anion gap [Moles/Vol] 16 mmol/L Normal 10-[address] [facility] Comment on above: Performed By: #### C H8, MG, TRIG, PHOS, VITB12 ####[facility] GQJIGNBKPY8101 [place], Calcium [Mass/Vol] 8.1 mg/dL Low 8.4-10.[address] [facility] Comment on above: Performed By: #### C H8, MG, TRIG, PHOS, VITB12 ####[facility] RCKFEXSFUH6095 [place], Chloride [Moles/Vol] 105 mmol/L Normal 97-111 [facility] Comment on above: Performed By: #### C H8, MG, TRIG, PHOS, VITB12 ####[facility] JJSSJLHRVO7923 [place], CO2 [Moles/Vol] 24 mmol/L Normal 21-30 [facility] Comment on above: Performed By: #### C H8, MG, TRIG, PHOS, VITB12 ####[facility] WJICVMMZFH7745 [place], Creatinine [Mass/Vol] 1.16 mg/dL Normal 0.80-1.30 [facility] Comment on above: Performed By: #### C H8, MG, TRIG, PHOS, VITB12 ####[facility] CSYZKGOVFZ0105 [place], ESTIMATED GFR (CKD-EPI) 61 mL/min/1.73sqm Normal >=60 [facility] Comment on above: Performed By: #### Deborah H8, MG, TRIG, PHOS, VITB12 ####S PATHOLOGY IWPAEHRMUG2044 [place], Glucose [Mass/Vol] 99 mg/dL Normal 80-116 [facility] Comment on above: Performed By: #### Deborah HClementina, MG, TRIG, PHOS, VITB12 ####[facility] PATHOLOGY GKIMOVNWQR7521 [place], Potassium [Moles/Vol] 3.5 mmol/L Normal 3.3-5.3 [facility] Comment on above: Performed By: #### Deborah H8, MG, TRIG, PHOS, VITB12 ####S PATHOLOGY MFCGVXCUFH8228 [place], Sodium [Moles/Vol] 141 mmol/L Normal 135-148 [facility] Comment on above: Performed By: #### Deborah HClementina, MG, TRIG, PHOS, VITB12 ####S PATHOLOGY UDMCWIYFMP7144 [place], Urea nitrogen [Mass/Vol] 13 mg/dL Normal 8-22 [facility] Comment on above: Performed By: #### Deborah H8, MG, TRIG, PHOS, VITB12 ####[facility] PATHOLOGY IJMEKCSMVH4405 [place], CBC WITH DIFFERENTIALon 03-04 Erythrocyte distribution width (RBC) [Ratio] 13.9 % Normal 11.5-14.5 [facility] Comment on above: Performed By: #### Deborah APARICIO MDIFF ####S PATHOLOGY JXWLDPOWLL3375 [place], Hematocrit (Bld) [Volume fraction] 33.3 % Low 41.0-53.0 [facility] Comment on above: Performed By: #### ALEXANDRO MCCORMACK ####S PATHOLOGY TNGIHHTDLU5263 [place], Hemoglobin (Bld) [Mass/Vol] 11.2 g/dL Low 13.9-16.3 [facility] Comment on above: Performed By: ###ALEXANDRO BURNHAM ####Ck PATHOLOGY MTUITFJSQF2086 [place], MCH (RBC) [Entitic mass] 30.8 pg Normal 26.0-34.0 [facility] Comment on above: Performed By: #### ALEXANDRO MCCORMACK ####S PATHOLOGY SFWVYZPPXJ8608 [place], MCHC (RBC) [Mass/Vol] 33.7 g/dL Normal 32.0-35.9 [facility] Comment on above: Performed By: ###ALEXANDRO BURNHAM ####Ck PATHOLOGY GQIOOVLMIR9502 [place], MCV (RBC) [Entitic vol] 91 fL Normal 80-100 [facility] Comment on above: Performed By: ###ALEXANDRO BURNHAM ####[facility] PATHOLOGY WAGEWMBEDH4810 [place], MONOCYTE DISTRIBUTION WIDTH Normal [facility] Comment on above: Performed By: ###ALEXANDRO BURNHAM ####[facility] PATHOLOGY [id number] [place], Platelet mean volume (Bld) [Entitic vol] 8.9 fL Normal 7.5-11.2 [facility] Comment on above: Performed By: ###ALEXANDRO BURNHAM ####S PATHOLOGY ILCKHDMPWO8056 [place], Platelets (Bld) [#/Vol] 175 10*3/uL Normal 150-400 [facility] Comment on above: Performed By: ###ALEXANDRO BURNHAM ####S PATHOLOGY ILINQNGRYC9411 [place], RBC (Bld) [#/Vol] 3.65 10*6/uL Low 4.50-5.90 [facility] Comment on above: Performed By: ###ALEXANDRO BURNHAM ####S PATHOLOGY AWPXBZYGHI5279 [place], WBC (Bld) [#/Vol] 8.7 10*3/uL Normal 4.5-11.5 [facility] Comment on above: Performed By: #### ALEXANDRO MCCORMACK ####S PATHOLOGY [id number] [place], Erythrocyte distribution width (RBC) [Ratio] 13.7 % Normal 11.5-14.5 [facility] Comment on above: Performed By: #### ALEXANDRO MCCORMACK ####Ck PATHOLOGY ZNAWKFZEFI9352 [place], Hematocrit (Bld) [Volume fraction] 35.2 % Low 41.0-53.0 [facility] Comment on above: Performed By: #### ALEXANDRO MCCORMACK ####Ck PATHOLOGY FQHRRWIEKD2502 [place], Hemoglobin (Bld) [Mass/Vol] 11.9 g/dL Low 13.9-16.3 [facility] Comment on above: Performed By: #### ALEXANDRO MCCORMACK ####[facility] PATHOLOGY DSHTCYNNMS4106 [place], MCH (RBC) [Entitic mass] 31.2 pg Normal 26.0-34.0 [facility] Comment on above: Performed By: #### ALEXANDRO MCCORMACK ####[facility] PATHOLOGY [id number] [place], MCHC (RBC) [Mass/Vol] 33.8 g/dL Normal 32.0-35.9 [facility] Comment on above: Performed By: #### ALEXANDRO MCCORMACK ####S PATHOLOGY LOTTGDMJNO7920 [place], MCV (RBC) [Entitic vol] 92 fL Normal 80-100 [facility] Comment on above: Performed By: #### ALEXANDRO MCCORMACK ####S PATHOLOGY FTSKGFWJTN0281 [place], MONOCYTE DISTRIBUTION WIDTH Normal [facility] Comment on above: Performed By: #### Deborah GRUBBSDSAT, MDIFF ####[facility] PATHOLOGY FJPRPCZODX3701 [place], Platelet mean volume (Bld) [Entitic vol] 9.3 fL Normal 7.5-11.2 [facility] Comment on above: Performed By: #### ALEXANDRO MCCORMACK ####[facility] PATHOLOGY [id number] [place] [address], Platelets (Bld) [#/Vol] 171 10*3/uL Normal 150-[address] [facility] Comment on above: Performed By: #### ALEXANDRO MCCORMACK ####[facility] PATHOLOGY YTDGVXZLFV[address] [place] [address], RBC (Bld) [#/Vol] 3.83 10*6/uL Low 4.50-5.90 [facility] Comment on above: Performed By: ###ALEXANDRO BURNHAM ####[facility] PATHOLOGY LQKLGSBYIC109[address] [place] [address], WBC (Bld) [#/Vol] 8.7 10*3/uL Normal 4.5-11.5 [facility] Comment on above: Performed By: ###ALEXANDRO BURNHAM ####[facility] PATHOLOGY HZCGWCXNPH8[address] [place] [address], Basophils (Bld) [#/Vol] 0.04 10*3/uL Normal 0.00-0.20 [facility] Comment on above: Performed By: ###Antonia APARICIO ####[facility] PATHOLOGY AHHFUVKMEU[address] [place] [address], Basophils/100 WBC (Bld) 0.5 % Normal <=1.9 [facility] Comment on above: Performed By: ###Antonia APARICIO ####S PATHOLOGY NKPENHHHFJ710[address] [place] [address], Eosinophils (Bld) [#/Vol] 0.25 10*3/uL Normal 0.00-0.70 [facility] Comment on above: Performed By: ###Antonia APARICIO ####[facility] PATHOLOGY [id number] [place] [address], [place], Eosinophils/100 WBC (Bld) 3.3 % Normal 0.1-4.0 [facility] Comment on above: Performed By: #### C VERAAT ####S PATHOLOGY MBILMYLMHY1458 [place], Erythrocyte distribution width (RBC) [Ratio] 13.6 % Normal 11.5-14.5 [facility] Comment on above: Performed By: #### C VERAAT ####[facility] PATHOLOGY NOYWAWXMOZ[address] [place] [address], Hematocrit (Bld) [Volume fraction] 32.8 % Low 41.0-53.0 [facility] Comment on above: Performed By: #### C VERAAT ####[facility] PATHOLOGY SFFUEHVUQR[address] [place] [address], Hemoglobin (Bld) [Mass/Vol] 10.9 g/dL Low 13.9-16.3 [facility] Comment on above: Performed By: #### C VERAAT ####[facility] PATHOLOGY RQCFVLYTVY[address] [place] [address], Lymphocytes (Bld) [#/Vol] 1.19 10*3/uL Normal 1.00-4.80 [facility] Comment on above: Performed By: #### C VERAAT ####[facility] PATHOLOGY MPOTSGGWFP1829 [place], Lymphocytes/100 WBC (Bld) 16.0 % Low 24.0-44.0 [facility] Comment on above: Performed By: #### C VERAAT ####S PATHOLOGY FECIZBWUKR6796 [place], MCH (RBC) [Entitic mass] 30.6 pg Normal 26.0-34.0 [facility] Comment on above: Performed By: #### C BCMARIAMAAT ####S PATHOLOGY ZARQPYHABN[address] [place] [address], MCHC (RBC) [Mass/Vol] 33.3 g/dL Normal 32.0-35.9 [facility] Comment on above: Performed By: #### C BCDSAT ####[facility] PATHOLOGY WOZJCDWUYL4720 [place], MCV (RBC) [Entitic vol] 92 fL Normal 80-100 [facility] Comment on above: Performed By: #### C BCDSAT ####[facility] PATHOLOGY [id number] [place], MONOCYTE DISTRIBUTION WIDTH Normal [facility] Comment on above: Performed By: #### C HUMERADSAT ####[facility] PATHOLOGY [id number] [place], Monocytes (Bld) [#/Vol] 0.89 10*3/uL Normal 0.20-1.00 [facility] Comment on above: Performed By: #### C BCDSAT ####[facility] PATHOLOGY TXFUXOJUYV3221 [place], Monocytes/100 WBC (Bld) 12.0 % High 2.0-11.0 [facility] Comment on above: Performed By: #### Deborah BCDSAT ####[facility] PATHOLOGY [id number] [place], Neutrophils (Bld) [#/Vol] 5.07 10*3/uL Normal 1.50-8.00 [facility] Comment on above: Performed By: #### C BCDSAT ####[facility] PATHOLOGY LDMKXPVUFM1748 [place], Neutrophils/100 WBC (Bld) 68.3 % Normal 31.0-76.0 [facility] Comment on above: Performed By: #### C BCDSAT ####[facility] PATHOLOGY [id number] [place], Platelet mean volume (Bld) [Entitic vol] 9.0 fL Normal 7.5-11.2 [facility] Comment on above: Performed By: #### C BCDSAT ####[facility] PATHOLOGY [id number] [place], Platelets (Bld) [#/Vol] 155 10*3/uL Normal 150-400 [facility] Comment on above: Performed By: #### C BCDSAT ####[facility] PIUPMBWKRQ8805 [place], RBC (Bld) [#/Vol] 3.57 10*6/uL Low 4.50-5.[address] [facility] Comment on above: Performed By: #### C VERAAT ####[facility] TXYBGDUUFZ1463 [place], WBC (Bld) [#/Vol] 7.4 10*3/uL Normal 4.5-11.[address] [facility] Comment on above: Performed By: #### C BCDSAT ####[facility] PATH[facility] JXLEUXSIWU6943 [place], [place], Care Plan Noteon 03-16-2021 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 Authentication Interface Message Text Normal [facility] Consultson 03-16-2021 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 Authentication Interface Message Text Normal [facility] GLUCOSE, FINGERSTICK-IN OFFI CEon 03-16-2021 Glucose [Mass/Vol] 94 mg/dL Normal 80-[address] [facility] Comment on above: Result Comment: Salvador jovel RN, APN, MD Performed By: #### 8 2948 ####NURSING GLUCOSE SBWISNU0080 [place], [address] Glucose [Mass/Vol] 95 mg/dL Normal 80-116 [facility] Comment on above: Result Comment: Salvador jovel RN, APN, MD Performed By: #### 8 2948 ####NURSING GLUCOSE ZWREROM0323 [place], [address] Glucose [Mass/Vol] 93 mg/dL Normal 80-116 [facility] Comment on above: Performed By: #### 8 2948 ####NURSING GLUCOSE ZNDLEKY2350 [place], [address] MAGNESIUMon 03-16-2021 Magnesium [Mass/Vol] 2.2 mg/dL Normal 1.6-2.8 [facility] Comment on above: Performed By: #### C H8, MG, TRIG, PHOS, VITB12 ####[facility] HFJOXGVRRH7714 [place], MANUAL DIFF AND MORPHon 10 BANDS % BY MANUAL COUNT 1 % Normal <=10 [facility] Comment on above: Performed By: #### ALEXANDRO MCCORMACK ####[facility] PATH[facility] XHLGPEWRYX5039 [place], BANDS ABS BY MANUAL COUNT 0.09 K/uL High <0.01 [facility] Comment on above: Performed By: #### ALEXANDRO MCCORMACK ####[facility] PATH[facility] RHPLYSCEWA0044 [place], BASOPHILS % BY MANUAL COUNT 2.0 % High <=1.9 [facility] Comment on above: Performed By: #### ALEXANDRO MCCORMACK ####S PATHOLOGY OYNAXYNUSP5798 [place], BASOPHILS ABS BY MANUAL COUNT 0.17 K/uL Normal 0.00-0.20 [facility] Comment on above: Performed By: #### ALEXANDRO MCCORMACK ####S PATHOLOGY STWMGFVGOK2029 [place], CELLS COUNTED TOTAL # IN BLOOD 100 Normal [facility] Comment on above: Performed By: #### ALEXANDRO MCCORMACK ####S PATHOLOGY ZVVPNGYQBQ9758 [place], EOSINOPHILS % BY MANUAL COUNT 3.0 % Normal 0.1-4.0 [facility] Comment on above: Performed By: #### ALEXANDRO MCCORMACK ####[facility] PATH[facility] BTHNVNVYJQ6075 [place], EOSINOPHILS ABS BY MANUAL COUNT 0.26 K/uL Normal 0.00-0.70 [facility] Comment on above: Performed By: #### ALEXANDRO MCCORMACK ####S PATHOLOGY KBOPWXUHTO6144 [place], LYMPHOCYTES % BY MANUAL COUNT 10.0 % Low 24.0-44.0 [facility] Comment on above: Performed By: #### ALEXANDRO MCCORMACK ####[facility] PATH[facility] XCTNWOBDPY7773 [place], LYMPHOCYTES ABS BY MANUAL COUNT 0.87 K/uL Low 1.00-4.80 [facility] Comment on above: Performed By: #### ALEXANDRO MCCORMACK ####S PATHOLOGY QDENLXAETW1936 [place], METAMYELOCYTES % BY MANUAL COUNT 1 % High <0 [facility] Comment on above: Performed By: #### ALEXANDRO MCCORMACK ####S PATHOLOGY LOYETNDULT6798 [place], METAMYELOCYTES ABS BY MANUAL COUNT 0.09 K/uL High <0.01 [facility] Comment on above: Performed By: #### ALEXANDRO MCCORMACK ####S PATHOLOGY MEGUMMIOGZ6616 [place], MONOCYTES % BY MANUAL COUNT 10.0 % Normal 2.0-11.0 [facility] Comment on above: Performed By: #### ALEXANDRO MCCORMACK ####[facility] PATHOLOGY QHDHOMXVKE3268 [place], MONOCYTES ABS BY MANUAL COUNT 0.87 K/uL Normal 0.20-1.00 [facility] Comment on above: Performed By: #### ALEXANDRO MCCORMACK ####[facility] PATHOLOGY AHZJVXXOYA8601 [place], NEUTROPHILS % BY MANUAL COUNT 73.0 % Normal 31.0-76.0 [facility] Comment on above: Performed By: #### ALEXANDRO MCCORMACK ####S PATHOLOGY GDBUWEYEVY1780 [place], NEUTROPHILS ABS BY MANUAL COUNT 6.35 K/uL Normal 1.50-8.00 [facility] Comment on above: Performed By: #### ALEXANDRO MCCORMACK ####S PATHOLOGY LOVSARQFUG3075 [place], POLYCHROMASIA Slight Normal [facility] Comment on above: Performed By: #### ALEXANDRO MCCORMACK ####[facility] PPITOPHTCN0563 [place], BASOPHILS % BY MANUAL COUNT 1.0 % Normal <=1.9 [facility] [place] [facility] Comment on above: Performed By: #### ALEXANDRO MCCORMACK ####[facility] PATH[facility] ZFYBCKBPBJ7789 [place], BASOPHILS ABS BY MANUAL COUNT 0.09 K/uL Normal 0.00-0.20 [facility] [place] [facility] Comment on above: Performed By: #### ALEXANDRO MCCORMACK ####[facility] PATH[facility] PWRUGDNNBA6877 [place], CELLS COUNTED TOTAL # IN BLOOD 100 Normal [facility] Comment on above: Performed By: #### ALEXANDRO MCCORMACK ####[facility] PATH[facility]Y XWDUUFTTNH1014 [place], EOSINOPHILS % BY MANUAL COUNT 3.0 % Normal 0.1-4.0 [facility] [place] [facility] Comment on above: Performed By: #### ALEXANDRO MCCORMACK ####[facility] PATHOLOG[facility] RRZCTHDSYI4158 [place], EOSINOPHILS ABS BY MANUAL COUNT 0.26 K/uL Normal 0.00-0.70 [facility] [place] [facility] Comment on above: Performed By: #### ALEXANDRO MCCORMACK ####S PATHOLOGY [id number] [place], [place], LYMPHOCYTES % BY MANUAL COUNT 14.0 % Low 24.0-44.0 [facility] [place] [facility] Comment on above: Performed By: #### ALEXANDRO MCCORMACK ####[facility] [id number] [place], LYMPHOCYTES ABS BY MANUAL COUNT 1.22 K/uL Normal 1.00-4.80 [facility] Comment on above: Performed By: #### ALEXANDRO MCCORMACK ####[facility] [id number] [place], MONOCYTES % BY MANUAL COUNT 13.0 % High 2.0-11.0 [facility] [place] [facility] Comment on above: Performed By: #### ALEXANDRO MCCORMACK ####[facility] [id number] [place], MONOCYTES ABS BY MANUAL COUNT 1.13 K/uL High 0.20-1.00 [facility] Comment on above: Performed By: #### ALEXANDRO MCCORMACK ####S PATHOLOGY [id number] [place], NEUTROPHILS % BY MANUAL COUNT 69.0 % Normal 31.0-76.0 [facility] Comment on above: Performed By: #### ALEXANDRO MCCORMACK ####S PATHOLOGY [id number] [place], NEUTROPHILS ABS BY MANUAL COUNT 6.00 K/uL Normal 1.50-8.00 [facility] Comment on above: Performed By: #### ALEXANDRO MCCORMACK ####[facility] PATHOLOGY [id number] [place], [place], RBC MORPHOLOGY Normal Normal [facility] Comment on above: Performed By: #### ALEXANDRO MCCORMACK ####[facility] PATHOLOGY [id number] [place], PARTIAL THROMBOPLASTIN TIMEo 03-16-2021 [id number] Coag (Bld) [Time] 72 s High 25-37 [facility] Comment on above: Performed By: #### A PTT ####[facility] PATHOLOGY GHOZGWPYFG3094 [place], [place], aPTT Coag (Bld) [Time] 70 s High 25-37 [facility] Comment on above: Performed By: #### A PTT ####S PATHOLOGY TLUQDJVDEH9246 [place], [place], aPTT Coag (Bld) [Time] 65 s High 25-37 [facility] Comment on above: Performed By: #### A PTT ####S PATHOLOGY VEBOTZGCRS7887 [place], [place], aPTT Coag (Bld) [Time] 62 s High 2537 [facility] Comment on above: Performed By: #### A PTT ####S PATHOLOGY YSVYCPRMFH6542 [place], PHOSPHORUSon 03-16-2021 Phosphate [Mass/Vol] 3.2 mg/dL Normal 2.3-4.2 [facility] Comment on above: Performed By: #### C H8, MG, TRIG, PHOS, VITB12 ####[facility] HTRABOUYKX7927 [place], [place], Procedureson 03-16-2021 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 Authentication Interface Message Text Normal [facility] Progress Noteson 03-16-2021 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 Authentication Interface Message Text Normal [facility] 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 Authentication Interface Message Text Normal [facility] 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 Authentication Interface Message Text Normal [facility] TRIGLYCERIDESon 03-16-2021 Triglyceride [Mass/Vol] 240 mg/dL High <151 [facility] Comment on above: Performed By: #### C H8, MG, TRIG, PHOS, VITB12 ####S PATHOLOGY JADDSPBKLL7254 [place], URINALYSIS WITH REFLEX CULTU RE PERFORMABLEon 03-16-2021 Glucose Ql (U) Negative Normal Negative [facility] Comment on above: Order Comment: A [...] around 50%) Performed By: #### u rinalysiswcul ####[facility] PATHOLOGY PARHWRIEUA2234 [place], [place], #### C URINE ####[facility] Jcmjcltyf1418 [place], [place] U APPEAR Clear Normal Clear [facility] Comment on above: Order Comment: A [...] around 50%) Performed By: #### u rinalysiswcul ####[facility] PATHOLOGY GDMVPWYQFI1074 [place], [place], #### C URINE ####[facility] Mtjappzfn8003 [place], [place] U BACTERIA Few Normal [facility] Comment on above: Order Comment: [...] around 50%) Performed By: #### u rinalysiswcul ####[facility] PATHOLOGY AAVFEFURTQ8254 [place], #### C URINE ####[facility] Btgfgdona8126 [place], [place] U BILI Negative Normal Negative [facility] Comment on above: Order Comment: [...] around 50%) Performed By: #### u rinalysiswcul ####[facility] PATHOLOGY OBGUVLKMQE5716 [place], #### C URINE ####[facility] Ewyyztyna3061 [place], [place] U BLOOD Negative Normal Negative [facility] Comment on above: Order Comment: [...] around 50%) Performed By: #### u rinalysiswcul ####[facility] PATHOLOGY QDVRIBNYXG2313 [place], #### C URINE ####[facility] Crifalqme1429 [place], [place] U COLOR Yellow Normal Yellow [facility] Comment on above: Order Comment: A [...] around 50%) Performed By: #### u rinalysiswcul ####[facility] PATHOLOGY NIVVXAVLZW3652 [place], #### C URINE ####[facility] Ntbylbbcy7774 [place], [place] U KETONE Negative Normal Negative [facility] Comment on above: Order Comment: A [...] around 50%) Performed By: #### u rinalysiswcul ####[facility] PATHOLOGY UXMYMMAZIL9169 [place], #### C URINE ####[facility] Utdlzymqa6561 [place], [place] U LEUK Trace Abnormal Negative [facility] Comment on above: Order Comment: [...] around 50%) Performed By: #### u rinalysiswcul ####[facility] PATHOLOGY LIJBQVWSZW6599 [place], #### C URINE ####[facility] [address] [place], [place] [address] U MUCOUS Present Normal [facility] Comment on above: Order Comment: [...] around 50%) Performed By: #### u rinalysiswcul ####[facility] PATHOLOGY GIKACNQCXM8123 [place], #### C URINE ####[facility] Nyrjatwnf4670 [place], [place] U NITRITE Negative Normal Negative [facility] Comment on above: Order Comment: A [...] around 50%) Performed By: #### u rinalysiswcul ####[facility] PATHOLOGY POSTXNRSGS1963 [place], [place], #### C URINE ####[facility] Ajwrbmtya[address] [place], [place] [id number] U PH 6.0 Normal 5.0-8.0 [facility] Comment on above: Order Comment: [...] around 50%) Performed By: #### u rinalysiswcul ####[facility] PATHOLOGY GEBAOTVLKQ9967 [place], #### C URINE ####[facility] Tnosadcgt[address] [place], [place] [address] U PROTEIN Negative Normal Negative [facility] Comment on above: Order Comment: [...] around 50%) Performed By: #### u rinalysiswcul ####[facility] PATHOLOGY XQHANHTCNV6121 [place], #### C URINE ####[facility] Yvigaffvg[address] [place], [place] [id number] U RBC 0-2 Normal 0-2 [facility] Comment on above: Order Comment: [...] around 50%) Performed By: #### u rinalysiswcul ####[facility] PATHOLOGY XVRMKKRUTV[address] [place] [address], #### C URINE ####[facility] Hszjxzkdi[address] [place], [place] [id number] U SG 1.011 Normal 1.005-1.030 [facility] Comment on above: Order Comment: [...] around 50%) Performed By: #### u rinalysiswcul ####[facility] PATHOLOGY UBXTYMKWUZ9800 [place], #### C URINE ####[facility] Duwwuszet7003 [place], [place] U UROBILI Negative Normal 0.1 - 1.0 [facility] Comment on above: Order Comment: [...] around 50%) Performed By: #### u rinalysiswcul ####[facility] PATHOLOGY CZYWPZSCMY8298 [place], #### C URINE ####[facility] Lfcgpecpz[address] [place], [place] [id number] U WBC 0-2 Normal 0-2 [facility] Comment on above: Order Comment: [...] around 50%) Performed By: #### u rinalysiswcul ####[facility] PATHOLOGY UXYKUMYABA[address] [place] [address], #### C URINE ####[address] URINE CULTUREon 03-16-2021 Bacteria identified Cx Nom (U) C URINE: No growth of greater than 1,000 CFU/ml Normal [facility] Comment on above: Performed By: #### u rinalysiswcul ####[facility] PATHOLOGY BMMHNMBVHL[address] [place] [address], #### C URINE ####[facility] Irzogfitg[address] [place], [place] [id number] VITAMIN B12 (CYANOCOBALAMIN) on 03-16-2021 Cobalamin (Vitamin B12) [Mass/Vol] 317 pg/mL Normal >300 [facility] Comment on above: Order Comment: <152 pg/mL - [id number] - 300 pg/mL- Insufficient>300 pg/mL - Sufficient Performed By: #### C H8, MG, TRIG, PHOS, VITB12 ####[facility] PATHOLOGY FNEZEAHZCY6506 [place], XR CHEST 1 VIEW AP OR PAon XR CHEST 1 VIEW AP OR PA Normal [facility] BASIC METABOLIC PANELon 03-04 Anion gap [Moles/Vol] 12 mmol/L Normal 10-20 [facility] Comment on above: Performed By: #### C H8 ####[facility] PATHOLOGY AAHQUBIKWW7536 [place], Calcium [Mass/Vol] 7.9 mg/dL Low 8.4-10.4 [facility] Comment on above: Performed By: #### C H8 ####[facility] PATHOLOGY PXJYSYQAOY1538 [place], Chloride [Moles/Vol] 102 mmol/L Normal 97-111 [facility] Comment on above: Performed By: #### C H8 ####[facility] PATHOLOGY TGYQXWBHTT2004 [place], CO2 [Moles/Vol] 25 mmol/L Normal 21-30 [facility] Comment on above: Performed By: #### C H8 ####[facility] PATHOLOGY TOAGKMLOSX5759 [place], Creatinine [Mass/Vol] 1.15 mg/dL Normal 0.80-1.30 [facility] Comment on above: Performed By: #### C H8 ####[facility] PATHOLOGY RNZXLJODDT0429 [place], ESTIMATED GFR (CKD-EPI) 62 mL/min/1.73sqm Normal >=60 [facility] Comment on above: Performed By: #### C H8 ####S PATHOLOGY VUHOZPQKBT7338 [place], Glucose [Mass/Vol] 113 mg/dL Normal 80-116 [facility] Comment on above: Performed By: #### C H8 ####S PATHOLOGY YQKFCXUDLD6649 [place], Potassium [Moles/Vol] 3.7 mmol/L Normal 3.3-5.3 [facility] Comment on above: Performed By: #### C H8 ####[facility] QCCWJCKDBX1171 [place], Sodium [Moles/Vol] 135 mmol/L Normal 135-148 [facility] Comment on above: Performed By: #### C H8 ####S PATHOLOGY EFVPXLBKEO9112 [place], Urea nitrogen [Mass/Vol] 17 mg/dL Normal 8-[address] [facility] Comment on above: Performed By: #### C H8 ####S PATHOLOGY SKAALRODUP8130 [place], Anion gap [Moles/Vol] 16 mmol/L Normal 10-20 [facility] Comment on above: Performed By: #### P HOS, MG, CH8 ####S PATHOLOGY FOAFTIDFSM5035 [place], Calcium [Mass/Vol] 7.9 mg/dL Low 8.4-10.4 [facility] Comment on above: Performed By: #### P HOS, MG, CH8 ####S PATHOLOGY ZYBPWKBJHU5392 [place], Chloride [Moles/Vol] 103 mmol/L Normal 97-[address] [facility] Comment on above: Performed By: #### P HOS, MG, CH8 ####S PATHOLOGY LMDWBTFMJN8448 [place], CO2 [Moles/Vol] 23 mmol/L Normal 21-[address] [facility] Comment on above: Performed By: #### P HOS, MG, CH8 ####[facility] MTOAVHVMJG2714 [place], Creatinine [Mass/Vol] 1.12 mg/dL Normal 0.80-1.30 [facility] Comment on above: Performed By: #### P HOS, MG, CH8 ####[facility] PEWBLHALDC8466 [place], ESTIMATED GFR (CKD-EPI) 64 mL/min/1.73sqm Normal >=60 [facility] Comment on above: Performed By: #### P HOS, MG, CH8 ####[facility] SFJHSCIAOC5184 [place], Glucose [Mass/Vol] 117 mg/dL High 80-116 [facility] Comment on above: Performed By: #### P HOS, MG, CH8 ####S PATHOLOGY GPXYJWPOVA2078 [place], Potassium [Moles/Vol] 3.4 mmol/L Normal 3.3-5.3 [facility] Comment on above: Performed By: #### P HOS, MG, CH8 ####S PATHOLOGY MKHBXEGEOM5963 [place], Sodium [Moles/Vol] 139 mmol/L Normal 135-148 [facility] Comment on above: Performed By: #### P HOS, MG, CH8 ####[facility] PATHOLOGY ZHRSMXKPKP0743 [place], Urea nitrogen [Mass/Vol] 19 mg/dL Normal 8-22 [facility] Comment on above: Performed By: #### P HOS, MG, CH8 ####[facility] PATHOLOGY YBYZDZAVUZ2640 [place], CBC WITH DIFFERENTIALon 03-04 Basophils (Bld) [#/Vol] 0.06 10*3/uL Normal 0.00-0.20 [facility] Comment on above: Performed By: #### C BCDSAT ####[facility] PATHOLOGY RVYFAZRDVZ8015 [place], Basophils/100 WBC (Bld) 0.5 % Normal <=1.9 [facility] Comment on above: Performed By: #### C BCDSAT ####[facility] PATHOLOGY BAJAOULORQ0403 [place], Eosinophils (Bld) [#/Vol] 0.19 10*3/uL Normal 0.00-0.70 [facility] Comment on above: Performed By: #### C BCDSAT ####S PATHOLOGY SAMYEEKAWS3887 [place], Eosinophils/100 WBC (Bld) 1.7 % Normal 0.1-4.0 [facility] Comment on above: Performed By: #### C HUMERADSAT ####[facility] PATHOLOGY JKFHXYBWCA8855 [place], Erythrocyte distribution width (RBC) [Ratio] 13.7 % Normal 11.5-14.[address] [facility] Comment on above: Performed By: #### C HUMERADSAT ####[facility] PATHOLOGY DTLPPPJZKR64[address] [place] [address], Hematocrit (Bld) [Volume fraction] 36.2 % Low 41.0-53.0 [facility] Comment on above: Performed By: #### C VERAAT ####[facility] PATHOLOGY CAJXHNQKOK[address] [place] [address], Hemoglobin (Bld) [Mass/Vol] 12.0 g/dL Low 13.9-16.[address] [facility] Comment on above: Performed By: #### C VERAAT ####[facility] PATHOLOGY UKSQIFEGVC42[address] [place] [address], Lymphocytes (Bld) [#/Vol] 1.10 10*3/uL Normal 1.00-4.[address] [facility] Comment on above: Performed By: #### C VERAAT ####[facility] PATHOLOGY RPDCRXKBFR33[address] [place] [address], Lymphocytes/100 WBC (Bld) 9.9 % Low 24.0-44.[address] [facility] Comment on above: Performed By: #### C BCDSAT ####S PATHOLOGY KRZMJAUQAK[address] [place] [address], MCH (RBC) [Entitic mass] 30.5 pg Normal 26.0-34.0 [facility] Comment on above: Performed By: #### C VERAAT ####S PATHOLOGY QPSNIIRAOY16[address] [place] [address], MCHC (RBC) [Mass/Vol] 33.3 g/dL Normal 32.0-35.[address] [facility] Comment on above: Performed By: #### C BCMARIAMAAT ####[facility] PATHOLOGY QSWZTFEOAR[address] [place] [address] [place], MCV (RBC) [Entitic vol] 92 fL Normal 80-100 [facility] Comment on above: Performed By: #### C BCDSAT ####S PATHOLOGY NUROJSPWCT9779 [place], MONOCYTE DISTRIBUTION WIDTH Normal [facility] Comment on above: Performed By: #### C HUMERADSAT ####S PATHOLOGY WKRYDWEOUQ9521 [place], Monocytes (Bld) [#/Vol] 1.40 10*3/uL High 0.20-1.00 [facility] Comment on above: Performed By: #### C VERAAT ####[facility] PATHOLOGY HSGEJWCLZD39[address] [place] [address], Monocytes/100 WBC (Bld) 12.7 % High 2.0-11.[address] [facility] Comment on above: Performed By: #### C VERAAT ####[facility] PATHOLOGY JUBJTVUMGK084[address] [place] [address], Neutrophils (Bld) [#/Vol] 8.35 10*3/uL High 1.50-8.00 [facility] Comment on above: Performed By: #### C VERAAT ####[facility] PATHOLOGY HIWLHAMZFG[address] [place] [address], Neutrophils/100 WBC (Bld) 75.3 % Normal 31.0-76.0 [facility] Comment on above: Performed By: #### C BCMARIAMAAT ####S PATHOLOGY ZIQYSTNJRC6854 [place], Platelet mean volume (Bld) [Entitic vol] 9.3 fL Normal 7.5-11.2 [facility] Comment on above: Performed By: #### C BCMARIAMAAT ####S PATHOLOGY RMHJTBUVWT6887 [place], Platelets (Bld) [#/Vol] 182 10*3/uL Normal 150-[address] [facility] Comment on above: Performed By: #### Deborah BCMARIAMAAT ####S PATHOLOGY ZBOOORMNZY[address] [place] [address], RBC (Bld) [#/Vol] 3.95 10*6/uL Low 4.50-5.90 [facility] Comment on above: Performed By: #### C BCDSAT ####[facility] PATHOLOGY AWYOINBYZI4457 [place], WBC (Bld) [#/Vol] 11.1 10*3/uL Normal 4.5-11.5 [facility] Comment on above: Performed By: #### C BCDSAT ####[facility] PATHOLOGY CKETODMKFH67[address] [place] [address], Basophils (Bld) [#/Vol] 0.05 10*3/uL Normal 0.00-0.20 [facility] Comment on above: Performed By: #### C BCDSAT ####[facility] PATHOLOGY KSUTFUYZSL540[address] [place] [address], Basophils/100 WBC (Bld) 0.5 % Normal <=1.9 [facility] Comment on above: Performed By: #### C BCDSAT ####[facility] PATHOLOGY VNENVIHFJU74[address] [place] [address], Eosinophils (Bld) [#/Vol] 0.20 10*3/uL Normal 0.00-0.70 [facility] Comment on above: Performed By: #### C BCDSAT ####[facility] PATHOLOGY NJFLYQOKVA418[address] [place] [address], Eosinophils/100 WBC (Bld) 1.9 % Normal 0.1-4.0 [facility] Comment on above: Performed By: #### C BCDSAT ####[facility] PATHOLOGY RETGKNUAOV6034 [place], Erythrocyte distribution width (RBC) [Ratio] 14.0 % Normal 11.5-14.5 [facility] Comment on above: Performed By: #### C BCDSAT ####[facility] PATHOLOGY HHHXGXKFQU1497 [place], Hematocrit (Bld) [Volume fraction] 32.6 % Low 41.0-53.0 [facility] Comment on above: Performed By: #### C BCDSAT ####[facility] PATHOLOGY SSLFCRSCAF0710 [place], Hemoglobin (Bld) [Mass/Vol] 11.0 g/dL Low 13.9-16.3 [facility] Comment on above: Performed By: #### C BCDSAT ####[facility] PATHOLOGY JXXMEUZFBM3482 [place], Lymphocytes (Bld) [#/Vol] 1.29 10*3/uL Normal 1.00-4.80 [facility] Comment on above: Performed By: #### C BCDSAT ####[facility] PATHOLOGY PFRTVFZRFM[address] [place] [address], Lymphocytes/100 WBC (Bld) 12.3 % Low 24.0-44.0 [facility] Comment on above: Performed By: #### C BCDSAT ####[facility] PATHOLOGY KHCGKTNMSD78[address] [place] [address], MCH (RBC) [Entitic mass] 30.6 pg Normal 26.0-34.0 [facility] Comment on above: Performed By: #### C BCDSAT ####[facility] PATHOLOGY SHQCSZJPKV[address] [place] [address], MCHC (RBC) [Mass/Vol] 33.8 g/dL Normal 32.0-35.9 [facility] Comment on above: Performed By: #### C BCDSAT ####[facility] PATHOLOGY FGFFTLEUXT48[address] [place] [address], MCV (RBC) [Entitic vol] 91 fL Normal 80-100 [facility] Comment on above: Performed By: #### C BCDSAT ####[facility] PATHOLOGY XHUBJJVGGA0417 [place], MONOCYTE DISTRIBUTION WIDTH Normal [facility] Comment on above: Performed By: #### C BCDSAT ####[facility] PATHOLOGY MZKMHEXSIR7785 [place], Monocytes (Bld) [#/Vol] 1.12 10*3/uL High 0.20-1.00 [facility] Comment on above: Performed By: #### C BCDSAT ####S PATHOLOGY TQURBZWITQ5359 [place], Monocytes/100 WBC (Bld) 10.8 % Normal 2.0-11.0 [facility] Comment on above: Performed By: #### C BCDSAT ####[facility] PATHOLOGY RZNKRUITCF0650 [place], Neutrophils (Bld) [#/Vol] 7.79 10*3/uL Normal 1.50-8.[address] [facility] Comment on above: Performed By: #### C BCDSAT ####[facility] PATHOLOGY XKEWIWUQVA5534 [place], Neutrophils/100 WBC (Bld) 74.5 % Normal 31.0-76.[address] [facility] Comment on above: Performed By: #### C BCDSAT ####[facility] PATHOLOGY RGAZGHTMEU0114 [place], Platelet mean volume (Bld) [Entitic vol] 9.1 fL Normal 7.5-11.[address] [facility] Comment on above: Performed By: #### C BCDSAT ####[facility] PATHOLOGY SIEYWFJZEP[address] [place] [address], Platelets (Bld) [#/Vol] 168 10*3/uL Normal 150-[address] [facility] Comment on above: Performed By: #### C BCDSAT ####S PATHOLOGY LEREOIFSDT0103 [place], RBC (Bld) [#/Vol] 3.61 10*6/uL Low 4.50-5.[address] [facility] Comment on above: Performed By: #### C BCDSAT ####S PATHOLOGY XQVOVVROMT6025 [place], WBC (Bld) [#/Vol] 10.4 10*3/uL Normal 4.5-11.[address] [facility] Comment on above: Performed By: #### C BCDSAT ####S PATHOLOGY OZBGKEWRMM5801 [place], Care Plan Noteon 03-15-2021 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 Authentication Interface Message Text Normal [facility] Consultson 03-15-2021 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 Authentication Interface Message Text Normal [facility] GLUCOSE, FINGERSTICK-IN OFFI CEon 03-15-2021 Glucose [Mass/Vol] 98 mg/dL Normal 80-116 [facility] Comment on above: Result Comment: Salvador jovel RN, APN, MD Performed By: #### 8 2948 ####NURSING GLUCOSE HLOVLGD2598 [place], [address] Glucose [Mass/Vol] 106 mg/dL Normal 80-116 [facility] Comment on above: Result Comment: Salvador jovel RN, APN, MD Performed By: #### 8 2948 ####NURSING GLUCOSE OWOJXCE4014 [place], [address] Glucose [Mass/Vol] 114 mg/dL Normal 80-116 [facility] Comment on above: Result Comment: Salvador jovel RN, APN, MD Performed By: #### 8 2948 ####NURSING GLUCOSE OCFIJPZ8391 [place], [address] Glucose [Mass/Vol] 90 mg/dL Normal 80-116 [facility] Comment on above: Result Comment: Salvador jovel RN, APN, MD Performed By: #### 8 2948 ####NURSING GLUCOSE QMXKLNA4090 [place], [address] Glucose [Mass/Vol] 97 mg/dL Normal 80-116 [facility] Comment on above: Performed By: #### 8 6321 ####NURSING GLUCOSE LIHDFHB9291 [place], [address] Glucose [Mass/Vol] 95 mg/dL Normal 80-116 [facility] Comment on above: Performed By: #### 8 0178 ####NURSING GLUCOSE GPOONFR1962 [place], [address] MAGNESIUMon 03-15-2021 Magnesium [Mass/Vol] 2.2 mg/dL Normal 1.6-2.8 [facility] Comment on above: Performed By: #### P HOS, MG, CH8 ####[facility] GZNVPMNLUP4372 [place], OP Noteon 03-15-2021 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 Authentication Interface Message Text Normal [facility] PARTIAL THROMBOPLASTIN TIMEo n 03-15-2021 aPTT Coag (Bld) [Time] 66 s High 25-37 [facility] Comment on above: Performed By: #### A PTT ####S PATHOLOGY [id number] [place], [place], aPTT Coag (Bld) [Time] 61 s High 25-37 [facility] Comment on above: Performed By: #### A PTT ####S PATHOLOGY [id number] [place], [place], PHOSPHORUSon 03-15-2021 Phosphate [Mass/Vol] 2.5 mg/dL Normal 2.3-4.2 [facility] Comment on above: Performed By: #### P HOS, MG, CH8 ####S PATHOLOGY [id number] [place], [place], Progress Noteson 03-15-2021 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 Authentication Interface Message Text Normal [facility] 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 Authentication Interface Message Text Normal [facility] TYPE AND SCREENon 03-15-2021 ABO and Rh group Nom (Bld) Blood group AB Rh(D) positive Normal [facility] Comment on above: Performed By: #### T S ####[facility] [id number] [place], [place], ABSC INT Negative Normal [facility] Comment on above: Performed By: #### T S ####[facility] [id number] [place], [place], BASIC METABOLIC PANELon 03-04 Anion gap [Moles/Vol] 12 mmol/L Normal 10-20 [facility] Comment on above: Performed By: #### C H8, PHOS, MG ####[facility] [id number] [place], Calcium [Mass/Vol] 7.8 mg/dL Low 8.4-10.4 [facility] Comment on above: Performed By: #### C H8, PHOS, MG ####[facility] [id number] [place], Chloride [Moles/Vol] 102 mmol/L Normal 97-111 [facility] Comment on above: Performed By: ###LISSETH Naidu MG ####[facility] YBNYWHRXZU9069 [place], CO2 [Moles/Vol] 26 mmol/L Normal 21-30 [facility] Comment on above: Performed By: #### LISSETH Méndez MG ####[facility] PATH[facility] [id number] [place], Creatinine [Mass/Vol] 1.19 mg/dL Normal 0.80-1.30 [facility] Comment on above: Performed By: #### LISSETH Méndez MG ####[facility] DTHNHGRJJA6479 [place], ESTIMATED GFR (CKD-EPI) 59 mL/min/1.73sqm Low >=60 [facility] Comment on above: Performed By: #### LISSETH Méndez MG ####[facility] EIXWHJXFAY2002 [place], Glucose [Mass/Vol] 166 mg/dL High 80-116 [facility] Comment on above: Performed By: #### LISSETH Méndez MG ####[facility] GYJUPQWDAK2656 [place], Potassium [Moles/Vol] 3.7 mmol/L Normal 3.3-5.3 [facility] Comment on above: Performed By: #### LISSETH Méndez MG ####[facility] GUSMMVCHCQ9718 [place], Sodium [Moles/Vol] 136 mmol/L Normal 135-148 [facility] Comment on above: Performed By: #### LISSETH Méndez MG ####[facility] LCFGLWWFQL7873 [place], Urea nitrogen [Mass/Vol] 21 mg/dL Normal 8-22 [facility] Comment on above: Performed By: #### LISSETH Méndez MG ####[facility] SWOJSHDYIB4285 [place], CBC WITH DIFFERENTIALon 03-04 Basophils (Bld) [#/Vol] 0.04 10*3/uL Normal 0.00-0.20 [facility] Comment on above: Performed By: #### C BCDSAT ####[facility] PATHOLOGY NGZLGOBUKN1917 [place], Basophils/100 WBC (Bld) 0.3 % Normal <=1.9 [facility] Comment on above: Performed By: #### C BCDSAT ####[facility] PATHOLOGY [id number] [place], Eosinophils (Bld) [#/Vol] 0.20 10*3/uL Normal 0.00-0.[address] [facility] Comment on above: Performed By: #### C BCDSAT ####[facility] PATHOLOGY NIPNKVQYEG[address] [place] [address], Eosinophils/100 WBC (Bld) 1.6 % Normal 0.1-4.[address] [facility] Comment on above: Performed By: #### C BCDSAT ####[facility] PATHOLOGY LFIKABSCKJ4270 [place], Erythrocyte distribution width (RBC) [Ratio] 14.0 % Normal 11.5-14.[address] Comment on above: Performed By: #### C BCDSAT ####[facility] PATHOLOGY [id number] [place], Hematocrit (Bld) [Volume fraction] 33.8 % Low 41.0-53.0 [facility] Comment on above: Performed By: #### C BCDSAT ####[facility] PATHOLOGY PBBBZSUBGM8614 [place], Hemoglobin (Bld) [Mass/Vol] 11.0 g/dL Low 13.9-16.[address] [facility] Comment on above: Performed By: #### C BCDSAT ####[facility] PATHOLOGY PVYXHCGCSD1604 [place], Lymphocytes (Bld) [#/Vol] 1.36 10*3/uL Normal 1.00-4.80 [facility] Comment on above: Performed By: #### C BCDSAT ####[facility] PATHOLOGY [id number] [place], Lymphocytes/100 WBC (Bld) 10.9 % Low 24.0-44.0 [facility] Comment on above: Performed By: #### C BCDSAT ####[facility] PATHOLOGY [id number] [place], MCH (RBC) [Entitic mass] 29.6 pg Normal 26.0-34.0 [facility] Comment on above: Performed By: #### C BCDSAT ####[facility] PATHOLOGY [id number] [place], MCHC (RBC) [Mass/Vol] 32.5 g/dL Normal 32.0-35.9 [facility] Comment on above: Performed By: #### C BCDSAT ####[facility] PATHOLOGY QLFUCHLKBU[address] [place] [address], MCV (RBC) [Entitic vol] 91 fL Normal 80-100 [facility] Comment on above: Performed By: #### C BCDSAT ####[facility] PATHOLOGY [id number] [place] [address], MONOCYTE DISTRIBUTION WIDTH Normal [facility] Comment on above: Performed By: #### C BCDSAT ####[facility] PATHOLOGY [id number] [place], Monocytes (Bld) [#/Vol] 1.50 10*3/uL High 0.20-1.00 [facility] Comment on above: Performed By: #### C BCDSAT ####[facility] PATHOLOGY [id number] [place], Monocytes/100 WBC (Bld) 12.0 % High 2.0-11.0 [facility] Comment on above: Performed By: #### C BCDSAT ####[facility] PATHOLOGY TPNHPLAXCS9056 [place], Neutrophils (Bld) [#/Vol] 9.37 10*3/uL High 1.50-8.00 [facility] Comment on above: Performed By: #### Deborah BCDSAT ####[facility] PATHOLOGY XGZTMTFZYL5504 [place], Neutrophils/100 WBC (Bld) 75.2 % Normal 31.0-76.0 [facility] Comment on above: Performed By: #### Deborah BCDSAT ####[facility] PATHOLOGY ILNDJBKUFI8685 [place], Platelet mean volume (Bld) [Entitic vol] 8.8 fL Normal 7.5-11.2 [facility] Comment on above: Performed By: #### Deborah BCDSAT ####[facility] PATHOLOGY [id number] [place] [address], Platelets (Bld) [#/Vol] 172 10*3/uL Normal 150-400 [facility] Comment on above: Performed By: #### Deborah BCDSAT ####[facility] PATHOLOGY IGTDBVRVLD[address] [place] [address], RBC (Bld) [#/Vol] 3.72 10*6/uL Low 4.50-5.90 [facility] Comment on above: Performed By: #### Deborah BCDSAT ####[facility] PATHOLOGY [id number] [place], WBC (Bld) [#/Vol] 12.5 10*3/uL High 4.5-11.[address] Comment on above: Performed By: #### Deborah BCDSAT ####[facility] PATHOLOGY HPQUJYQTAP[address] [place] [address], Basophils (Bld) [#/Vol] 0.02 10*3/uL Normal 0.00-0.20 [facility] Comment on above: Performed By: #### Deborah BCDSAT ####[facility] PATHOLOGY QHPSFAGKJM18[address] [place] [address], #### HB A1C ####[facility] [address] [place], [address] Basophils/100 WBC (Bld) 0.1 % Normal <=1.9 [facility] [place] [facility] Comment on above: Performed By: #### C BCDSAT ####[facility] PATHOLOGY BOLVVURCRG[address] [place] [address], #### HB A1C ####[facility] [address] [place], Eosinophils (Bld) [#/Vol] 0.12 10*3/uL Normal 0.00-0.70 [facility] Comment on above: Performed By: #### C BCDSAT ####[facility] PATHOLOGY [id number] [place] [address], #### HB A1C ####[facility] [address] [place], Eosinophils/100 WBC (Bld) 0.8 % Normal 0.1-4.0 [facility] Comment on above: Performed By: #### C BCDSAT ####[facility] PATHOLOGY ISKQPXWLDN[address] [place] [address], #### HB A1C ####[facility] [address] [place] [address], Erythrocyte distribution width (RBC) [Ratio] 13.9 % Normal 11.5-14.5 [facility] [place] [facility] Comment on above: Performed By: #### C BCDSAT ####[facility] PATHOLOGY IGHDYOVUCU[address] [place] [address], #### HB A1C ####[facility] [address] [place] [address], Hematocrit (Bld) [Volume fraction] 34.2 % Low 41.0-53.0 [facility] Comment on above: Performed By: #### C BCDSAT ####[facility] PATHOLOGY SDOBCREYPE[address] [place] [address], #### HB A1C ####[facility] [address] [place], Hemoglobin (Bld) [Mass/Vol] 11.4 g/dL Low 13.9-16.3 [facility] Comment on above: Performed By: #### C BCDSAT ####[facility] PATHOLOGY NUIEJJOSLZ[address] [place] [address], #### HB A1C ####[facility] [address] [place], Lymphocytes (Bld) [#/Vol] 1.49 10*3/uL Normal 1.00-4.80 [facility] Comment on above: Performed By: #### C BCDSAT ####[facility] PATHOLOGY [id number] [place] [address], #### HB A1C ####[facility] [address] [place], Lymphocytes/100 WBC (Bld) 9.8 % Low 24.0-44.0 [facility] Comment on above: Performed By: #### C BCDSAT ####[facility] PATHOLOGY JLFUGZOTCU[address] [place] [address], #### HB A1C ####[facility] [address] [place] [address], MCH (RBC) [Entitic mass] 30.1 pg Normal 26.0-34.0 [facility] Comment on above: Performed By: #### C BCDSAT ####[facility] PATHOLOGY FRHBDIOLOY865[address] [place] [address], #### HB A1C ####[facility] [address] [place] [address], MCHC (RBC) [Mass/Vol] 33.2 g/dL Normal 32.0-35.9 [facility] [place] [facility] Comment on above: Performed By: #### C BCDSAT ####[facility] PATHOLOGY TEKWSARRCY[address] [place] [address], #### HB A1C ####[facility] [address] [place] [address], MCV (RBC) [Entitic vol] 91 fL Normal 80-100 [facility] [place] [facility] Comment on above: Performed By: #### C BCDSAT ####[facility] PATHOLOGY XNCRIPUHUC764[address] [place] [address], #### HB A1C ####[facility] [address] [place], [address] MONOCYTE DISTRIBUTION WIDTH Normal [facility] Comment on above: Performed By: #### C BCDSAT ####[facility] PATHOLOGY SCJAPFDFHK913[address] [place] [address], #### HB A1C ####[facility] [address] [place], [address] Monocytes (Bld) [#/Vol] 1.66 10*3/uL High 0.20-1.00 [facility] Comment on above: Performed By: #### C BCDSAT ####[facility] PATHOLOGY MAHZYORZJC739[address] [place] [address], #### HB A1C ####[facility] [address] [place], [address] Monocytes/100 WBC (Bld) 11.0 % Normal 2.0-11.0 [facility] Comment on above: Performed By: #### C BCDSAT ####[facility] PATHOLOGY OWHTHQABPM[address] [place] [address], #### HB A1C ####[facility] [address] [place], [address] Neutrophils (Bld) [#/Vol] 11.85 10*3/uL High 1.50-8.00 [facility] Comment on above: Performed By: #### C BCDSAT ####[facility] PATHOLOGY DBNZAONKDG[address] [place] [address], #### HB A1C ####[facility] [address] [place], [address] Neutrophils/100 WBC (Bld) 78.3 % High 31.0-76.0 [facility] Comment on above: Performed By: #### C BCDSAT ####[facility] PATHOLOGY UKEHJZKYOO09[address] [place] [address], #### HB A1C ####[facility] [address] [place], [address] Platelet mean volume (Bld) [Entitic vol] 8.9 fL Normal 7.5-11.2 [facility] Comment on above: Performed By: #### C BCDSAT ####[facility] PATHOLOGY CEGOFGZTZL[address] [place] [address], #### HB A1C ####[facility] [address] [place], [address] Platelets (Bld) [#/Vol] 178 10*3/uL Normal 150-400 [facility] Comment on above: Performed By: #### C BCDSAT ####[facility] PATHOLOGY TPOSSAUOIJ[address] [place] [address], #### HB A1C ####[facility] [address] [place], [address] RBC (Bld) [#/Vol] 3.76 10*6/uL Low 4.50-5.90 [facility] Comment on above: Performed By: #### C BCDSAT ####[facility] PATHOLOGY [id number] [place] [address], #### HB A1C ####[facility] [address] [place], [address] WBC (Bld) [#/Vol] 15.1 10*3/uL High 4.5-11.5 [facility] Comment on above: Performed By: #### C BCDSAT ####[facility] PATHOLOGY CGSEJLEBHO90[address] [place] [address], #### HB A1C ####[facility] [address] [place], [address] Basophils (Bld) [#/Vol] 0.09 10*3/uL Normal 0.00-0.20 [facility] Comment on above: Performed By: #### C BCDSAT ####[facility] PATHOLOGY UOZNUGCQTN[address] [place] [address], Basophils/100 WBC (Bld) 0.5 % Normal <=1.9 [facility] Comment on above: Performed By: #### C BCDSAT ####[facility] PATHOLOGY IKLCOWRGNS[address] [place] [address], Eosinophils (Bld) [#/Vol] 0.07 10*3/uL Normal 0.00-0.70 [facility] Comment on above: Performed By: #### C VERAAT ####[facility] PATHOLOGY ACTRRGEYYX9568 [place], Eosinophils/100 WBC (Bld) 0.4 % Normal 0.1-4.0 [facility] Comment on above: Performed By: #### C VERAAT ####[facility] PATHOLOGY GAJCYUAPMH[address] [place] [address], Erythrocyte distribution width (RBC) [Ratio] 14.1 % Normal 11.5-14.5 [facility] Comment on above: Performed By: #### C VERAAT ####[facility] PATHOLOGY ZUSFPDUCDJ[address] [place] [address], Hematocrit (Bld) [Volume fraction] 36.9 % Low 41.0-53.0 [facility] Comment on above: Performed By: #### C VERAAT ####[facility] PATHOLOGY GKOGSSMSOM[address] [place] [address], Hemoglobin (Bld) [Mass/Vol] 11.9 g/dL Low 13.9-16.[address] Comment on above: Performed By: #### Deborah GAMEZAT ####[facility] PATHOLOGY VPURCKIMTK[address] [place] [address], Lymphocytes (Bld) [#/Vol] 1.47 10*3/uL Normal 1.00-4.[address] [facility] Comment on above: Performed By: #### C VERAAT ####[facility] PATHOLOGY IUJDITEWSQ378[address] [place] [address], Lymphocytes/100 WBC (Bld) 7.7 % Low 24.0-44.[address] [facility] Comment on above: Performed By: #### C VERAAT ####[facility] PATHOLOGY TLQWDKAEZI[address] [place] [address], MCH (RBC) [Entitic mass] 29.4 pg Normal 26.0-34.[address] [facility] Comment on above: Performed By: #### C VERAAT ####[facility] PATHOLOGY QBDPOTZQQU01[address] [place] [address], MCHC (RBC) [Mass/Vol] 32.2 g/dL Normal 32.0-35.9 [facility] Comment on above: Performed By: #### Deborah GAMEZAT ####[facility] PATHOLOGY [id number] [place], MCV (RBC) [Entitic vol] 91 fL Normal 80-100 [facility] Comment on above: Performed By: #### C VERAAT ####[facility] PATHOLOGY [id number] [place] [address], MONOCYTE DISTRIBUTION WIDTH Normal [facility] Comment on above: Performed By: #### C VERAAT ####[facility] PATHOLOGY GHSFOHCQCA6843 [place], Monocytes (Bld) [#/Vol] 2.41 10*3/uL High 0.20-1.00 [facility] Comment on above: Performed By: #### Deborah GAMEZAT ####[facility] PATHOLOGY QMHYYMUWVE[address] [place] [address], Monocytes/100 WBC (Bld) 12.6 % High 2.0-11.0 [facility] Comment on above: Performed By: #### Deborah GAMEZAT ####[facility] PATHOLOGY [id number] [place] [address], Neutrophils (Bld) [#/Vol] 15.16 10*3/uL High 1.50-8.00 [facility] Comment on above: Performed By: #### Deborah GAMEZAT ####[facility] PATHOLOGY [id number] [place] [address], Neutrophils/100 WBC (Bld) 79.0 % High 31.0-76.0 [facility] Comment on above: Performed By: #### Deborah GAMEZAT ####S PATHOLOGY [id number] [place], Platelet mean volume (Bld) [Entitic vol] 8.9 fL Normal 7.5-11.2 [facility] Comment on above: Performed By: #### Deborah GAMEZAT ####[facility] PATHOLOGY KKSTHCIJQE[address] [place] [address] [place], Platelets (Bld) [#/Vol] 187 10*3/uL Normal 150-400 [facility] Comment on above: Performed By: #### C VEARAT ####[facility] SMZQAHLQNW7464 [place], RBC (Bld) [#/Vol] 4.03 10*6/uL Low 4.50-5.90 [facility] Comment on above: Performed By: #### C VERAAT ####[facility] AMJJCMFKIX7693 [place], WBC (Bld) [#/Vol] 19.2 10*3/uL High 4.5-11.5 [facility] Comment on above: Performed By: #### C VERAAT ####[facility] BFRXICCNTX9530 [place], [place], Care Plan Noteon 03-14-2021 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 Authentication Interface Message Text Normal [facility] GLUCOSE, FINGERSTICK-IN OFFI CEon 03-14-2021 Glucose [Mass/Vol] 123 mg/dL High 80-116 [facility] Comment on above: Performed By: #### 8 2948 ####NURSING GLUCOSE YNIQABH0444 [place], [address] Glucose [Mass/Vol] 132 mg/dL High 80-116 [facility] Comment on above: Result Comment: Foll ow Protocol Performed By: #### 8 2948 ####NURSING GLUCOSE RWBPQQZ0842 [place], [address] Glucose [Mass/Vol] 200 mg/dL High 80-116 [facility] Comment on above: Result Comment: Salvador jovel RN, APN, MD Performed By: #### 8 2948 ####NURSING GLUCOSE RZCSUUQ9398 [place], [address] HEMOGLOBIN A1Con 03-14-2021 Glucose [Mass/Vol] 137 mg/dL Normal [facility] Comment on above: Order Comment: HbA1c of 5.7-6.4% have increased risk for diabetes and CV(Source :ADA 2014 Standard of Medical Care in Diabetes) Performed By: #### C BCDSAT ####[facility] RHJPJZZIUH0229 [place], [place], #### HB A1C ####[facility] [address] [place], [address] HbA1c (Bld) [Mass fraction] 6.4 % High 4.0-5.6 [facility] Comment on above: Order Comment: HbA1c of 5.7-6.4% have increased risk for diabetes and CV(Source :ADA 2014 Standard of Medical Care in Diabetes) Performed By: #### C BCDSAT ####[facility] PATHOLOGY [id number] [place], [place], #### HB A1C ####[facility] [address] [place], [address] MAGNESIUMon 03-14-2021 Magnesium [Mass/Vol] 2.2 mg/dL Normal 1.6-2.[address] Comment on above: Performed By: #### LISSETH Méndez MG ####[facility] PATHOLOGY [id number] [place] [address], PARTIAL THROMBOPLASTIN TIMEo n 03-14-2021 aPTT Coag (Bld) [Time] 49 s High 25-[address] [facility] Comment on above: Performed By: #### A PTT ####[facility] PATHOLOGY [id number] [place] [address], aPTT Coag (Bld) [Time] 88 s High 25-37 [facility] Comment on above: Performed By: #### A PTT, PT ####[facility] PATHOLOGY IRDBAKCUVQ[address] [place] [address], PHOSPHORUSon 03-14-2021 Phosphate [Mass/Vol] 1.8 mg/dL Low 2.3-4.2 [facility] Comment on above: Performed By: #### LISSETH Méndez, MG ####[facility] PATHOLOGY GYGAMLYCJX3014 [place], PROTHROMBIN TIME AND INRon 1 INR Coag (PPP) [Relative time] 1.80 {INR} High 0.90-1.10 [facility] Comment on above: Performed By: #### A PTT, PT ####[facility] [id number] [place], [place], PT Coag (PPP) [Time] 20.2 s High 9.7-12.9 [facility] Comment on above: Performed By: #### A PTT, PT ####[facility] [id number] [place], [place], Procedureson 03-14-2021 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 Authentication Interface Message Text Normal [facility] Progress Noteson 03-14-2021 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 Authentication Interface Message Text Normal [facility] 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 Authentication Interface Message Text Normal [facility] 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 Authentication Interface Message Text Normal [facility] 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 Authentication Interface Message Text Normal [facility] 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 Authentication Interface Message Text Normal [facility] 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 Authentication Interface Message Text Normal [facility] Anesthesia Postprocedure Mary Ann luationon 03-13-2021 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 Authentication Interface Message Text Normal [facility] Anesthesia Transfer Of Careo n 03-13-2021 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 Authentication Interface Message Text Normal [facility] BASIC METABOLIC PANELon 10- Anion gap [Moles/Vol] 13 mmol/L Normal 10-20 [facility] Comment on above: Performed By: #### YOEL Garcia, HEPATIC ####S PATHOLOGY [id number] [place], [place], Calcium [Mass/Vol] 8.2 mg/dL Low 8.4-10.4 [facility] Comment on above: Performed By: #### YOEL Garcia, HEPATIC ####S PATHOLOGY [id number] [place], [place], Chloride [Moles/Vol] 100 mmol/L Normal 97-111 [facility] Comment on above: Performed By: #### YOEL Garcia, HEPATIC ####[facility] PATH[facility]Y [id number] [place], [place], CO2 [Moles/Vol] 25 mmol/L Normal 21-30 [facility] Comment on above: Performed By: #### YOEL Garcia, HEPATIC ####[facility] PATHOLOGY [id number] [place], [place], Creatinine [Mass/Vol] 1.13 mg/dL Normal 0.80-1.30 [facility] Comment on above: Performed By: #### YOEL Garcia, HEPATIC ####S PATHOLOGY [id number] [place], [place], ESTIMATED GFR (CKD-EPI) 63 mL/min/1.73sqm Normal >=60 [facility] Comment on above: Performed By: #### YOEL Garcia, HEPATIC ####S PATHOLOGY [id number] [place], [place], Glucose [Mass/Vol] 265 mg/dL High 80-116 [facility] [facility] Comment on above: Performed By: #### YOEL Garcia, HEPATIC ####S PATHOLOGY [id number] [place], [place], Potassium [Moles/Vol] 4.2 mmol/L Normal 3.3-5.3 [facility] Comment on above: Performed By: #### YOEL Garcia, HEPATIC ####S PATHOLOGY LUZKDILADU1099 [place], Sodium [Moles/Vol] 134 mmol/L Low 135-148 [facility] Comment on above: Performed By: #### YOEL Garcia, HEPATIC ####S PATHOLOGY MAHIMHGSJO9566 [place], Urea nitrogen [Mass/Vol] 18 mg/dL Normal 8-22 [facility] Comment on above: Performed By: #### YOEL Garcia, HEPATIC ####[facility] PATH[facility]Y MZIMDHVTOC9620 [place], Anion gap [Moles/Vol] 16 mmol/L Normal 10-20 [facility] Comment on above: Performed By: #### Deborah Jeronimo, HEPATIC, MG, TROP I ####[facility] PATH[facility]Y TWCJFOBIJY8306 [place], Calcium [Mass/Vol] 8.8 mg/dL Normal 8.4-10.4 [facility] Comment on above: Performed By: #### C H8, HEPATIC, MG, TROP I ####[facility] PATHOLOGY RLRMACKZML6411 [place], Chloride [Moles/Vol] 102 mmol/L Normal 97-111 [facility] Comment on above: Performed By: #### C H8, HEPATIC, MG, TROP I ####[facility] PATHOLOGY EXTTZVATRU9699 [place], CO2 [Moles/Vol] 23 mmol/L Normal 21-30 [facility] Comment on above: Performed By: #### C H8, HEPATIC, MG, TROP I ####[facility] PATHOLOGY CQAPOSFLIS6690 [place], Creatinine [Mass/Vol] 1.03 mg/dL Normal 0.80-1.30 [facility] Comment on above: Performed By: #### C H8, HEPATIC, MG, TROP I ####S PATHOLOGY QAACUWVQWV6109 [place], ESTIMATED GFR (CKD-EPI) 71 mL/min/1.73sqm Normal >=60 [facility] Comment on above: Performed By: #### C H8, HEPATIC, MG, TROP I ####S PATHOLOGY UMZAGDADKE8354 [place], Glucose [Mass/Vol] 192 mg/dL High 80-116 [facility] Comment on above: Performed By: #### C H8, HEPATIC, MG, TROP I ####S PATHOLOGY RTDXFEDXRH5210 [place], Potassium [Moles/Vol] 4.1 mmol/L Normal 3.3-5.3 [facility] Comment on above: Performed By: #### C H8, HEPATIC, MG, TROP I ####[facility] PATHOLOGY MJFLRKBTUW0155 [place], Sodium [Moles/Vol] 137 mmol/L Normal 135-148 [facility] Comment on above: Performed By: #### C H8, HEPATIC, MG, TROP I ####[facility] PATHOLOGY WBJLCTTBAF5501 [place], Urea nitrogen [Mass/Vol] 19 mg/dL Normal 8-22 [facility] Comment on above: Performed By: #### C H8, HEPATIC, MG, TROP I ####S PATHOLOGY TCLAEGSBIV8899 [place], BLOOD GAS, ARTERIALon 2020 CR BARI 1.0 mmol/L Normal -2.0-2.0 [facility] Comment on above: Performed By: #### C R BGA ####S PATHOLOGY WVGQTYEYZM5318 [place], CR PCO2 41.5 mm Hg Normal 35.0-45.0 [facility] Comment on above: Performed By: #### C R BGA ####S PATHOLOGY WEXOOSTEMS8555 [place], CR PHA 7.403 Normal 7.35-7.45 [facility] Comment on above: Performed By: #### C R BGA ####[facility] PATHOLOGY ZFOKYILUYB4317 [place], CR PO2 64 mm Hg Low 80-100 [facility] Comment on above: Performed By: #### C R BGA ####S PATHOLOGY HTJPYFPUVD2652 [place], FIO2 (CATEGORY) 40% Normal [facility] Comment on above: Performed By: #### C R BGA ####S PATHOLOGY TGXIAJRSQW4013 [place], HCO3 (Bld) [Moles/Vol] 25 mmol/L Normal 22-28 [facility] Comment on above: Performed By: #### C R BGA ####S PATHOLOGY ALOKDTLTFU0224 [place], MODE Vent Normal [facility] Comment on above: Result Comment: VT 4 80 Peep +5 RR 18 Performed By: #### C R BGA ####[facility] PATH[facility] TOROGKJIGA3437 [place], Oxygen saturation in Blood 92.1 % Low >=95.1 [facility] Comment on above: Performed By: #### C R BGA ####[facility] PATHOLOGY RXOUHOWHBT2752 [place], CR BARI 0.1 mmol/L Normal -2.0-2.0 [facility] Comment on above: Performed By: #### C R BGA ####[facility] PATHOLOGY XPKBBZCLBV7689 [place], CR PCO2 52.7 mm Hg High 35.0-45.0 [facility] Comment on above: Performed By: #### C R BGA ####[facility] PATHOLOGY [address]BBF[address] [place] [address], CR PHA 7.320 Low 7.35-7.45 [facility] Comment on above: Performed By: #### C R BGA ####[facility] PATHOLOGY QCJZSHJYDL1906 [place], CR PO2 42 mm Hg Critically low 80-100 [facility] Comment on above: Performed By: #### Deborah R BGA ####[facility] PATHOLOGY [id number] [place] [address], FIO2 (CATEGORY) 40% Normal [facility] Comment on above: Performed By: #### C R BGA ####[facility] PATHOLOGY BKIKLOWRKC[address] [place] [address], HCO3 (Bld) [Moles/Vol] 26 mmol/L Normal 22-[address] [facility] Comment on above: Performed By: #### C R BGA ####[facility] PATHOLOGY JWZRZLMPZP6734 [place], MODE Vent Normal [facility] Comment on above: Performed By: #### C R BGA ####[facility] PATHOLOGY PTJCRDBYFX7870 [place], Oxygen saturation in Blood 73.5 % Low >=95.1 [facility] Comment on above: Performed By: #### C R BGA ####[facility] PATHOLOGY ONORWXBEBN[address] [place] [address], CBC WITH DIFFERENTIALon 10-1 0-2021 Basophils (Bld) [#/Vol] 0.05 10*3/uL Normal 0.00-0.[address] [facility] Comment on above: Performed By: #### C BCDSAT ####[facility] PATHOLOGY EMOQBZNSWT8822 [place], Basophils/100 WBC (Bld) 0.3 % Normal <=1.[address] [facility] Comment on above: Performed By: #### C BCDSAT ####[facility] PATHOLOGY DZFACCMKNY0307 [place], Eosinophils (Bld) [#/Vol] 0.02 10*3/uL Normal 0.00-0.[address] [facility] Comment on above: Performed By: #### C BCDSAT ####[facility] PATHOLOGY HSDCRYMIZK7867 [place], Eosinophils/100 WBC (Bld) 0.1 % Normal 0.1-4.[address] [facility] Comment on above: Performed By: #### C BCDSAT ####[facility] PATHOLOGY HHOBCMWXWQ[address] [place] [address], Erythrocyte distribution width (RBC) [Ratio] 14.1 % Normal 11.5-14.[address] [facility] Comment on above: Performed By: #### C BCDSAT ####[facility] PATHOLOGY VAMSVFZSJW[address] [place] [address], Hematocrit (Bld) [Volume fraction] 36.0 % Low 41.0-53.[address] [facility] Comment on above: Performed By: #### C BCDSAT ####[facility] PATHOLOGY NQPKZDDZWY[address] [place] [address], Hemoglobin (Bld) [Mass/Vol] 11.8 g/dL Low 13.9-16.3 [facility] Comment on above: Performed By: #### C BCDSAT ####[facility] PATHOLOGY CNCYNUVASZ7873 [place], Lymphocytes (Bld) [#/Vol] 0.93 10*3/uL Low 1.00-4.[address] [facility] Comment on above: Performed By: #### C BCDSAT ####[facility] PATHOLOGY JGTHQLXIKT[address] [place] [address], Lymphocytes/100 WBC (Bld) 4.9 % Low 24.0-44.0 [facility] Comment on above: Performed By: #### C VERAAT ####[facility] PATHOLOGY [id number] [place], MCH (RBC) [Entitic mass] 30.2 pg Normal 26.0-34.0 [facility] Comment on above: Performed By: #### C VERAAT ####[facility] PATHOLOGY MIGIBWNESO5497 [place], MCHC (RBC) [Mass/Vol] 32.8 g/dL Normal 32.0-35.9 [facility] Comment on above: Performed By: #### C VERAAT ####[facility] PATHOLOGY GCHMZKLLPP5507 [place], MCV (RBC) [Entitic vol] 92 fL Normal 80-100 [facility] Comment on above: Performed By: #### C VERAAT ####[facility] PATHOLOGY UZVGVVNGKR[address] [place] [address], MONOCYTE DISTRIBUTION WIDTH Normal [facility] Comment on above: Performed By: #### Deborah GAMEZAT ####[facility] PATHOLOGY RIQAJLSXHK0207 [place], Monocytes (Bld) [#/Vol] 1.86 10*3/uL High 0.20-1.[address] [facility] Comment on above: Performed By: #### Deborah GAMEZAT ####[facility] PATHOLOGY DBVWGIMTAO[address] [place] [address], Monocytes/100 WBC (Bld) 9.8 % Normal 2.0-11.0 [facility] Comment on above: Performed By: #### C VERAAT ####[facility] PATHOLOGY ABQFYSPEUM6519 [place], Neutrophils (Bld) [#/Vol] 16.16 10*3/uL High 1.50-8.[address] [facility] Comment on above: Performed By: #### Deborah GAMEZAT ####[facility] PATHOLOGY XLZXWCNOTF[address] [place] [address], Neutrophils/100 WBC (Bld) 85.0 % High 31.0-76.0 [facility] Comment on above: Performed By: #### Deborah GAMEZAT ####[facility] PATHOLOGY KDCUEGWWJO4909 [place], Platelet mean volume (Bld) [Entitic vol] 9.0 fL Normal 7.5-11.2 [facility] Comment on above: Performed By: #### Deborah GAMEZAT ####[facility] PATHOLOGY XEQPMJJJPL[address] [place] [address], Platelets (Bld) [#/Vol] 181 10*3/uL Normal 150-400 [facility] Comment on above: Performed By: #### Deborah GAMEZAT ####[facility] PATHOLOGY GVUWADLJTJ415[address] [place] [address], RBC (Bld) [#/Vol] 3.91 10*6/uL Low 4.50-5.90 [facility] Comment on above: Performed By: #### Deborah GAMEZAT ####[facility] PATHOLOGY JIUYGRIUHU9[address] [place] [address], WBC (Bld) [#/Vol] 19.0 10*3/uL High 4.5-11.5 [facility] Comment on above: Performed By: #### Deborah GAMEZAT ####[facility] PATHOLOGY YLQSBOZIIG6222 [place], Basophils (Bld) [#/Vol] 0.09 10*3/uL Normal 0.00-0.20 [facility] Comment on above: Performed By: #### Deborah GAMEZAT ####[facility] PATHOLOGY UMQZLCJCNK7978 [place], Basophils/100 WBC (Bld) 0.5 % Normal <=1.9 [facility] Comment on above: Performed By: #### Deborah GAMEZAT ####[facility] PATHOLOGY SAOEBAODZA3202 [place], Eosinophils (Bld) [#/Vol] 0.00 10*3/uL Normal 0.00-0.70 [facility] Comment on above: Performed By: #### C BCDSAT ####[facility] PATHOLOGY GJZOGUOSYW3920 [place], Eosinophils/100 WBC (Bld) 0.0 % Low 0.1-4.0 [facility] Comment on above: Performed By: #### C BCDSAT ####[facility] PATHOLOGY PSLAUKUHJP6599 [place], Erythrocyte distribution width (RBC) [Ratio] 14.1 % Normal 11.5-14.[address] [facility] Comment on above: Performed By: #### C BCDSAT ####[facility] PATHOLOGY TISNWKRXWB0683 [place], Hematocrit (Bld) [Volume fraction] 36.1 % Low 41.0-53.[address] [facility] Comment on above: Performed By: #### C BCDSAT ####[facility] PATHOLOGY KFSYRWAPNT[address] [place] [address], Hemoglobin (Bld) [Mass/Vol] 12.1 g/dL Low 13.9-16.[address] [facility] Comment on above: Performed By: #### C BCDSAT ####[facility] PATHOLOGY HVUYVAGWEE5928 [place], Lymphocytes (Bld) [#/Vol] 0.64 10*3/uL Low 1.00-4.[address] [facility] Comment on above: Performed By: #### C BCDSAT ####[facility] PATHOLOGY RHZUZSDXWR0411 [place], Lymphocytes/100 WBC (Bld) 3.3 % Low 24.0-44.[address] [facility] Comment on above: Performed By: #### C BCDSAT ####[facility] PATHOLOGY NBPEWSUYZA4351 [place], MCH (RBC) [Entitic mass] 30.5 pg Normal 26.0-34.0 [facility] Comment on above: Performed By: #### C BCDSAT ####[facility] PATHOLOGY OSAVRPNVGJ[address] [place] [address], MCHC (RBC) [Mass/Vol] 33.4 g/dL Normal 32.0-35.9 [facility] Comment on above: Performed By: #### C BCDSAT ####[facility] PATHOLOGY QBMBQXLOJE4336 [place], MCV (RBC) [Entitic vol] 91 fL Normal 80-100 [facility] Comment on above: Performed By: #### C BCDSAT ####[facility] PATHOLOGY ORTEEJVDIZ3423 [place], MONOCYTE DISTRIBUTION WIDTH Normal [facility] Comment on above: Performed By: #### C BCDSAT ####[facility] PATHOLOGY HJEVXBZBNE4151 [place], Monocytes (Bld) [#/Vol] 1.73 10*3/uL High 0.20-1.00 [facility] Comment on above: Performed By: #### C BCDSAT ####[facility] PATHOLOGY SGXEPCOELG5564 [place], Monocytes/100 WBC (Bld) 8.8 % Normal 2.0-11.0 [facility] Comment on above: Performed By: #### C BCDSAT ####[facility] PATHOLOGY OAAKVSMRRQ8542 [place], Neutrophils (Bld) [#/Vol] 17.30 10*3/uL High 1.50-8.00 [facility] Comment on above: Performed By: #### C BCDSAT ####[facility] PATHOLOGY AHDQFZWVJR6734 [place], Neutrophils/100 WBC (Bld) 87.5 % High 31.0-76.0 [facility] Comment on above: Performed By: #### C BCDSAT ####S PATHOLOGY FINDCGUHNQ5112 [place], Platelet mean volume (Bld) [Entitic vol] 8.6 fL Normal 7.5-11.2 [facility] Comment on above: Performed By: #### C BCDSAT ####[facility] PATHOLOGY KBCSXTYVWK1644 [place], Platelets (Bld) [#/Vol] 203 10*3/uL Normal 150-400 [facility] Comment on above: Performed By: #### C BCDSAT ####[facility] PATHOLOGY JQWSYORPJH5820 [place], RBC (Bld) [#/Vol] 3.96 10*6/uL Low 4.50-5.90 [facility] Comment on above: Performed By: #### C BCDSAT ####[facility] PATHOLOGY YSEDRBRJOS[address] [place] [address], WBC (Bld) [#/Vol] 19.8 10*3/uL High 4.5-11.5 [facility] Comment on above: Performed By: #### C BCDSAT ####[facility] PATHOLOGY JZMMRTHSHL[address] [place] [address], COMPLETE BLOOD COUNTon 03-13 Erythrocyte distribution width (RBC) [Ratio] 13.8 % Normal 11.5-14.[address] [facility] Comment on above: Performed By: #### C BC ####[facility] PATHOLOGY GOMPCBGQTP[address] [place] [address], Hematocrit (Bld) [Volume fraction] 37.6 % Low 41.0-53.0 [facility] Comment on above: Performed By: #### C BC ####[facility] PATHOLOGY [id number] [place] [address], Hemoglobin (Bld) [Mass/Vol] 12.5 g/dL Low 13.9-16.[address] [facility] Comment on above: Performed By: #### C BC ####[facility] PATHOLOGY [id number] [place] [address], MCH (RBC) [Entitic mass] 30.7 pg Normal 26.0-34.0 [facility] Comment on above: Performed By: #### C BC ####[facility] PATHOLOGY LBSJMJJKEJ9719 [place], MCHC (RBC) [Mass/Vol] 33.1 g/dL Normal 32.0-35.9 [facility] Comment on above: Performed By: #### C BC ####[facility] PATHOLOGY WFVGDALYZN5799 [place], MCV (RBC) [Entitic vol] 93 fL Normal 80-100 [facility] Comment on above: Performed By: #### C BC ####[facility] PATHOLOGY [id number] [place], Platelet mean volume (Bld) [Entitic vol] 9.1 fL Normal 7.5-11.2 [facility] Comment on above: Performed By: #### C BC ####[facility] PATHOLOGY PSTKNFHTMU6966 [place], Platelets (Bld) [#/Vol] 186 10*3/uL Normal 150-400 [facility] Comment on above: Performed By: #### C BC ####[facility] PATHOLOGY SXSSZSFDHE1173 [place], RBC (Bld) [#/Vol] 4.05 10*6/uL Low 4.50-5.90 [facility] Comment on above: Performed By: #### C BC ####[facility] PATHOLOGY CTUBZKXHXV[address] [place] [address], WBC (Bld) [#/Vol] 19.4 10*3/uL High 4.5-11.5 [facility] Comment on above: Performed By: #### C BC ####[facility] PATHOLOGY ZISXTKIMLU2860 [place], Erythrocyte distribution width (RBC) [Ratio] 13.9 % Normal 11.5-14.5 [facility] Comment on above: Performed By: #### C BC ####[facility] PATHOLOGY KQXSPIWSCR2225 [place], Hematocrit (Bld) [Volume fraction] 39.5 % Low 41.0-53.0 [facility] Comment on above: Performed By: #### C BC ####S PATHOLOGY MSCLTVVUUJ7632 [place], Hemoglobin (Bld) [Mass/Vol] 13.2 g/dL Low 13.9-16.3 [facility] Comment on above: Performed By: #### C BC ####[facility] PATHOLOGY GCVGIWJUFV9505 [place], MCH (RBC) [Entitic mass] 30.3 pg Normal 26.0-34.0 [facility] Comment on above: Performed By: #### C BC ####S PATHOLOGY JQNHRULIFI6611 [place], MCHC (RBC) [Mass/Vol] 33.4 g/dL Normal 32.0-35.[address] [facility] [facility] Comment on above: Performed By: #### C BC ####[facility] PATHOLOGY SFSHEBWPLX1771 [place], MCV (RBC) [Entitic vol] 91 fL Normal 80-[address] [facility] [facility] Comment on above: Performed By: #### C BC ####[facility] PATHOLOGY USPEEUJTRG1987 [place], Platelet mean volume (Bld) [Entitic vol] 8.6 fL Normal 7.5-11.[address] [facility] [facility] Comment on above: Performed By: #### C BC ####[facility] PATHOLOGY OLTFMGHJRZ9757 [place], Platelets (Bld) [#/Vol] 219 10*3/uL Normal 150-[address] [facility] [facility] Comment on above: Performed By: #### C BC ####[facility] PATHOLOGY WYSGVWAOWS9130 [place], RBC (Bld) [#/Vol] 4.35 10*6/uL Low 4.50-5.[address] [facility] [facility] Comment on above: Performed By: #### C BC ####S PATHOLOGY TAFXIJUOPZ8509 [place], WBC (Bld) [#/Vol] 21.9 10*3/uL High 4.5-11.5 [facility] Comment on above: Performed By: #### C BC ####S PATHOLOGY AGWVHZTIMQ9277 [place], [place], Consultson 03-13-2021 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 Authentication Interface Message Text Normal [facility] GLUCOSE, FINGERSTICK-IN OFFI CEon 03-13-2021 Glucose [Mass/Vol] 194 mg/dL High 80-116 [facility] Comment on above: Performed By: #### 8 2948 ####NURSING GLUCOSE YLZJLGS9291 [place], [address] Glucose [Mass/Vol] 207 mg/dL High 80-116 [facility] Comment on above: Performed By: #### 8 2948 ####NURSING GLUCOSE ZSBLHOZ7785 [place], [address] H AND Josue 03-13-2021 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 Authentication Interface Message Text Normal [facility] HEPATIC FUNCTION PANELon Albumin [Mass/Vol] 3.7 g/dL Normal 3.4-5.1 [facility] Comment on above: Performed By: #### YOEL Garcia, HEPATIC ####S PATHOLOGY [id number] [place], ALK 68 IU/L Normal 40-200 [facility] Comment on above: Performed By: #### YOEL Garcia, HEPATIC ####S PATHOLOGY INLAEQKDHA2251 [place], ALT [Catalytic activity/Vol] 34 U/L Normal 7-40 [facility] Comment on above: Performed By: ###YOEL Mcknight, HEPATIC ####[facility] PATH[facility] [id number] [place], AST [Catalytic activity/Vol] 29 U/L Normal 7-40 [facility] Comment on above: Performed By: ###YOEL Mcknight, HEPATIC ####[facility] PATHOLOGY FKVAFGAZDV1126 [place], Bilirubin [Mass/Vol] 1.9 mg/dL High 0.1-1.5 [facility] Comment on above: Performed By: #### YOEL Garcia, HEPATIC ####[facility] PATHOLOGY YMTAZGSNBT0212 [place], Bilirubin.direct [Mass/Vol] 0.40 mg/dL High 0.10-0.30 [facility] Comment on above: Performed By: #### YOEL Garcia, HEPATIC ####[facility] PATH[facility]Y NMDHTAWIQN1934 [place], Protein [Mass/Vol] 6.7 g/dL Normal 5.7-8.1 [facility] Comment on above: Performed By: #### M G, CH8, HEPATIC ####[facility] PATHOLOGY [id number] [place], Albumin [Mass/Vol] 4.0 g/dL Normal 3.4-5.1 [facility] Comment on above: Performed By: #### C H8, HEPATIC, MG, TROP I ####[facility] PATHOLOGY [id number] [place], [place], ALK 72 IU/L Normal 40-200 [facility] Comment on above: Performed By: #### Deborah H8, HEPATIC, MG, TROP I ####[facility] PATHOLOGY [id number] [place] [address], ALT [Catalytic activity/Vol] 31 U/L Normal 7-40 [facility] Comment on above: Performed By: #### Deborah H8, HEPATIC, MG, TROP I ####[facility] PATHOLOGY [id number] [place], [place], AST [Catalytic activity/Vol] 26 U/L Normal 7-40 [facility] Comment on above: Performed By: #### C H8, HEPATIC, MG, TROP I ####[facility] PATHOLOGY [id number] [place], [place], Bilirubin [Mass/Vol] 2.2 mg/dL High 0.1-1.5 [facility] Comment on above: Performed By: #### C H8, HEPATIC, MG, TROP I ####[facility] PATHOLOGY [id number] [place], [place], Bilirubin.direct [Mass/Vol] 0.60 mg/dL High 0.10-0.30 [facility] Comment on above: Performed By: #### C H8, HEPATIC, MG, TROP I ####[facility] PATHOLOGY [id number] [place], [place], Protein [Mass/Vol] 6.8 g/dL Normal 5.7-8.1 [facility] Comment on above: Performed By: #### C H8, HEPATIC, MG, TROP I ####S PATHOLOGY [id number] [place], [place], LACTIC ACIDon 03-13-2021 CR LACT 1.7 mmol/L Normal 0.5-2.0 [facility] Comment on above: Performed By: #### L ACT ####[facility] PATHOLOGY [id number] [place] [address], MAGNESIUMon 03-13-2021 Magnesium [Mass/Vol] 2.3 mg/dL Normal 1.6-2.8 [facility] Comment on above: Performed By: #### M G, CH8, HEPATIC ####[facility] PATHOLOGY [id number] [place], [place], Magnesium [Mass/Vol] 2.3 mg/dL Normal 1.6-2.8 [facility] Comment on above: Performed By: #### C H8, HEPATIC, MG, TROP I ####[facility] PATHOLOGY [id number] [place], [place], PARTIAL THROMBOPLASTIN TIMEo n 03-13-2021 aPTT Coag (Bld) [Time] 79 s High 25-37 [facility] Comment on above: Performed By: #### A PTT ####[facility] PATHOLOGY GUJXIMWXAY[address] [place] [address], aPTT Coag (Bld) [Time] 74 s High 25-37 [facility] Comment on above: Performed By: #### A PTT ####[facility] PATHOLOGY [id number] [place] [address], aPTT Coag (Bld) [Time] 31 s Normal 25-37 [facility] Comment on above: Performed By: #### A PTT ####S PATHOLOGY YMSPDGTJZJ4657 [place], [place], aPTT Coag (Bld) [Time] 34 s Normal 25-37 [facility] Comment on above: Performed By: #### P T, APTT ####[facility] PATHOLOGY [id number] [place] [address], PROTHROMBIN TIME AND INRon 1 INR Coag (PPP) [Relative time] 1.78 {INR} High 0.90-1.10 [facility] Comment on above: Performed By: #### P T ####S PATHOLOGY URORHTQNBI4584 [place], [place], PT Coag (PPP) [Time] 19.7 s High 9.7-12.9 [facility] Comment on above: Performed By: #### P T ####S PATHOLOGY CJWBDYAJZT2875 [place], INR Coag (PPP) [Relative time] 1.82 {INR} High 0.90-1.10 [facility] Comment on above: Performed By: #### P T, APTT ####S PATHOLOGY EMNURYHUOC[address] [place] [address], PT Coag (PPP) [Time] 20.1 s High 9.7-12.9 [facility] Comment on above: Performed By: #### P T, APTT ####[facility] PATHOLOGY [id number] [place], [place], Progress Noteson 03-13-2021 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 Authentication Interface Message Text Attempted to reach out to family to give update. Unable to reach. Will continue to try to reach out. Dorian Martel MD PGY-3 Normal [facility] 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 Authentication Interface Message Text Normal [facility] 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 Authentication Interface Message Text Normal [facility] 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 Authentication Interface Message Text Normal [facility] 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 Authentication Interface Message Text Normal [facility] 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 Authentication Interface Message Text Normal [facility] RESPIRATORY CULTURE, MISCon 03-13-2021 RESPIRATORY CULTURE, MISC Normal [facility] Comment on above: Performed By: #### C RESP ####[facility] Rqqcvyabr6628 [place], [place] TROPONIN Ion 03-13-2021 TROP I < 0.030 Normal <0.120 [facility] Comment on above: Result Comment: Rang [...] By: #### T ROP I ####S PATHOLOGY DGLMQGPEPX8978 [place], [place], TROP I 0.036 ng/mL Normal <0.120 [facility] Comment on above: Result Comment: Rang [...] #### C H8, HEPATIC, MG, TROP I ####[facility] PATHOLOGY [id number] [place], [place], XR CHEST 1 VIEW AP OR PAon 1 XR CHEST 1 VIEW AP OR PA Normal [facility] ABO RH TYPEon 03-12-2021 ABO and Rh group Nom (Bld) Blood group AB Rh(D) positive Normal [facility] Comment on above: Performed By: #### A GILMA ####[facility] PATHOLOGY MZVEESHFAW7293 [place], [place], Anesthesia Attestationon 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 Authentication Interface Message Text Normal [facility] Anesthesia Preprocedure Eval uationon 03-12-2021 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 Authentication Interface Message Text Normal [facility] B TYPE NATRIURETIC PEPTIDEon 03-12-2021 Natriuretic peptide B (Bld) [Mass/Vol] 132.0 pg/mL High <100.0 [facility] Comment on above: Performed By: #### B PL, CBCDSAT ####S PATHOLOGY NXYUVYSVRJ3093 [place], BASIC METABOLIC PANELon 10-0 Anion gap [Moles/Vol] 15 mmol/L Normal 10-[address] [facility] Comment on above: Performed By: #### M G, HEPATIC, TROP I, LIP, CH8 ####[facility] PATHOLOGY [id number] [place], Calcium [Mass/Vol] 8.8 mg/dL Normal 8.4-10.4 [facility] Comment on above: Performed By: #### M G, HEPATIC, TROP I, LIP, CH8 ####[facility] PATHOLOGY [id number] [place], Chloride [Moles/Vol] 100 mmol/L Normal 97-111 [facility] Comment on above: Performed By: #### M G, HEPATIC, TROP I, LIP, CH8 ####[facility] PATHOLOGY [id number] [place], CO2 [Moles/Vol] 24 mmol/L Normal 21-30 [facility] Comment on above: Performed By: #### Roselia G, HEPATIC, TROP I, LIP, CH8 ####[facility] PATHOLOGY RRBLGKYPQF8715 [place], Creatinine [Mass/Vol] 1.07 mg/dL Normal 0.80-1.30 [facility] Comment on above: Performed By: #### M G, HEPATIC, TROP I, LIP, CH8 ####[facility] PATHOLOGY [id number] [place], ESTIMATED GFR (CKD-EPI) 68 mL/min/1.73sqm Normal >=60 [facility] Comment on above: Performed By: #### M G, HEPATIC, TROP I, LIP, CH8 ####[facility] PATHOLOGY [id number] [place], Glucose [Mass/Vol] 198 mg/dL High 80-116 [facility] Comment on above: Performed By: #### M G, HEPATIC, TROP I, LIP, CH8 ####[facility] PATHOLOGY WAEYTURGPU4398 [place], Potassium [Moles/Vol] 4.1 mmol/L Normal 3.3-5.3 [facility] Comment on above: Performed By: #### M G, HEPATIC, TROP I, LIP, CH8 ####[facility] PATHOLOGY STRIRUFXFS9898 [place], Sodium [Moles/Vol] 135 mmol/L Normal 135-148 [facility] Comment on above: Performed By: #### M G, HEPATIC, TROP I, LIP, CH8 ####[facility] PATHOLOGY SAGECPWDEH7662 [place], Urea nitrogen [Mass/Vol] 17 mg/dL Normal 8-22 [facility] Comment on above: Performed By: #### M G, HEPATIC, TROP I, LIP, CH8 ####[facility] PATHOLOGY YNHISMCKMO8182 [place], BLOOD CULTUREon 03-12-2021 Bacteria identified Cx Nom (Bld) C BLOOD: No Growth Normal [facility] Comment on above: Performed By: #### C BLOOD ####[facility] [address] [place], [place] [address] Blood Attestationon 03-12-20 21 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 Authentication Interface Message Text Normal [facility] [place] [facility] CBC WITH DIFFERENTIALon Basophils (Bld) [#/Vol] 0.04 10*3/uL Normal 0.00-0.20 [facility] Comment on above: Performed By: #### B PL, CBCDSAT ####[facility] PATHOLOGY [id number] [place], Basophils/100 WBC (Bld) 0.2 % Normal <=1.9 [facility] [place] [facility] Comment on above: Performed By: #### B PL, CBCDSAT ####[facility] PATHOLOGY [id number] [place], Eosinophils (Bld) [#/Vol] 0.00 10*3/uL Normal 0.00-0.70 [facility] Comment on above: Performed By: #### B PL, CBCDSAT ####[facility] PATHOLOGY VCGSTKJIWD9277 [place], Eosinophils/100 WBC (Bld) 0.0 % Low 0.1-4.0 [facility] Comment on above: Performed By: #### B PL, CBCDSAT ####S PATHOLOGY PASPGQLZJZ2227 [place], Erythrocyte distribution width (RBC) [Ratio] 13.9 % Normal 11.5-14.5 [facility] Comment on above: Performed By: #### B PL, CBCDSAT ####S PATHOLOGY ETLJQBRIUZ[address] [place] [address], Hematocrit (Bld) [Volume fraction] 42.0 % Normal 41.0-53.0 [facility] Comment on above: Performed By: #### B PL, CBCDSAT ####S PATHOLOGY IPXHBVYAZZ60[address] [place] [address], Hemoglobin (Bld) [Mass/Vol] 14.1 g/dL Normal 13.9-16.3 [facility] Comment on above: Performed By: #### B PL, CBCDSAT ####[facility] PATHOLOGY NFIZIZOXQC[address] [place] [address], Lymphocytes (Bld) [#/Vol] 0.58 10*3/uL Low 1.00-4.80 [facility] Comment on above: Performed By: #### B PL, CBCDSAT ####S PATHOLOGY AEIGZOUAXF[address] [place] [address], Lymphocytes/100 WBC (Bld) 2.5 % Low 24.0-44.[address] [facility] Comment on above: Performed By: #### B PL, CBCDSAT ####S PATHOLOGY JNILXGGNNU6010 [place], MCH (RBC) [Entitic mass] 30.4 pg Normal 26.0-34.[address] [facility] Comment on above: Performed By: #### B PL, CBCDSAT ####S PATHOLOGY QERTVLYLLD[address] [place] [address], MCHC (RBC) [Mass/Vol] 33.5 g/dL Normal 32.0-35.[address] [facility] Comment on above: Performed By: #### B PL, CBCDSAT ####S PATHOLOGY NDXKWGHVLG1727 [place], MCV (RBC) [Entitic vol] 91 fL Normal 80-100 [facility] Comment on above: Performed By: #### B PL, CBCDSAT ####[facility] PATH[facility] PUABOXIZKO5201 [place], MONOCYTE DISTRIBUTION WIDTH 18 Normal <=20 [facility] Comment on above: Performed By: #### B PL, CBCDSAT ####S PATHOLOGY SATQLABUSR2405 [place], Monocytes (Bld) [#/Vol] 1.72 10*3/uL High 0.20-1.00 [facility] Comment on above: Performed By: #### B PL, CBCDSAT ####S PATHOLOGY WWZKHDXWRK5689 [place], Monocytes/100 WBC (Bld) 7.5 % Normal 2.0-11.0 [facility] Comment on above: Performed By: #### B PL, CBCDSAT ####[facility] PATHOLOGY IVOISEHBBO2951 [place], Neutrophils (Bld) [#/Vol] 20.56 10*3/uL High 1.50-8.00 [facility] Comment on above: Performed By: #### B PL, CBCDSAT ####[facility] PATHOLOGY WEJVIRRDEH8636 [place], Neutrophils/100 WBC (Bld) 89.8 % High 31.0-76.0 [facility] Comment on above: Performed By: #### B PL, CBCDSAT ####S PATHOLOGY UCRRJCGJVR4788 [place], Platelet mean volume (Bld) [Entitic vol] 9.0 fL Normal 7.5-11.2 [facility] Comment on above: Performed By: #### B PL, CBCDSAT ####S PATHOLOGY MRNVKNZOGV7027 [place], Platelets (Bld) [#/Vol] 226 10*3/uL Normal 150-400 [facility] Comment on above: Performed By: #### B PL, CBCDSAT ####[facility] PATHOLOGY PUZNNPAYNZ6560 [place], RBC (Bld) [#/Vol] 4.64 10*6/uL Normal 4.50-5.90 [facility] Comment on above: Performed By: #### B PL, CBCDSAT ####[facility] PATHOLOGY TWKEEYCAJU8536 [place], WBC (Bld) [#/Vol] 22.9 10*3/uL High 4.5-11.5 [facility] Comment on above: Performed By: #### B PL, CBCDSAT ####[facility] PATHOLOGY XUSNOEYVWE5177 [place], COVID/INFLUENZAon 03-12-2021 INFLUENZA A Not detected Normal Not Detected [facility] Comment on above: Order Comment: This test is intended for use only under Emergency Use Authorization (EUA). This test was developed, and its performance characteristics determined by [facility] which is certified under CLIA as qualified to perform high complexity clinical laboratory testing. Result Comment: This assay was performed using [employer] RTPCR technology. Performed By: #### F SOLOMON/COVID ####[facility] PATHOLOGY AUZNOBQRMB1281 [place], INFLUENZA B Not detected Normal Not Detected [facility] Comment on above: Order Comment: This test is intended for use only under Emergency Use Authorization (EUA). This test was developed, and its performance characteristics determined by [facility] which is certified under CLIA as qualified to perform high complexity clinical laboratory testing. Result Comment: This assay was performed using [employer] RTPCR technology. Performed By: #### F SOLOMON/COVID ####[facility] PATHOLOGY OGKYKVKVSD6837 [place], SARS-CoV-2 (COVID-19) RNA MICHELLE+probe Ql (Unsp spec) Not detected Normal Not Detected [facility] Comment on above: Order Comment: This test is intended for use only under Emergency Use Authorization (EUA). This test was developed, and its performance characteristics determined by [employer] which is certified under CLIA as qualified to perform high complexity clinical laboratory testing. Result Comment: This assay was performed using [employer] RTPCR technology. Performed By: #### F SOLOMON/NIMESH ####S PATHOLOGY WOLUBJVLFB5593 [place], [place], CT CHEST W/ CONTRASTon 03-12 CT CHEST W/ CONTRAST Normal [facility] CT NECK W/ CONTRASTon 2020 CT NECK W/ CONTRAST Normal [facility] Consultson 03-12-2021 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 Authentication Interface Message Text Normal [facility] ED Noteson 03-12-2021 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 Authentication Interface Message Text 1200- EKG COMPLETED AND SHOWN TO ATTENDING. Normal [facility] 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 Authentication Interface Message Text 1052- IV ESTABLISHED, BLOOD SPECIMENS IN STAT LAB. Normal [facility] ED Provider Noteson 03-12-20 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 Authentication Interface Message Text Normal [facility] FFPon 03-12-2021 BB ORDER ITEM Product status info to follow Normal [facility] Comment on above: Performed By: #### F FO ####S PATHOLOGY UUSYKVJYNC6683 [place], HEPATIC FUNCTION PANELon Albumin [Mass/Vol] 4.2 g/dL Normal 3.4-5.1 [facility] Comment on above: Performed By: #### M G, HEPATIC, TROP I, LIP, CH8 ####S PATHOLOGY JIMAULDYAI6121 [place], ALK 79 IU/L Normal 40-[address] [facility] Comment on above: Performed By: #### M G, HEPATIC, TROP I, LIP, CH8 ####S PATHOLOGY CPPLTHLVRU4249 [place], ALT [Catalytic activity/Vol] 37 U/L Normal 7-40 [facility] Comment on above: Performed By: #### M G, HEPATIC, TROP I, LIP, CH8 ####S PATHOLOGY FFAJXPWLKC0342 [place], AST [Catalytic activity/Vol] 31 U/L Normal 7-[address] [facility] Comment on above: Performed By: #### M G, HEPATIC, TROP I, LIP, CH8 ####S PATHOLOGY MJGATDAEMZ4253 [place], Bilirubin [Mass/Vol] 1.8 mg/dL High 0.1-1.5 [facility] Comment on above: Performed By: #### M G, HEPATIC, TROP I, LIP, CH8 ####[facility] PATHOLOGY OTHZRCZKHL2177 [place], Bilirubin.direct [Mass/Vol] 0.40 mg/dL High 0.10-0.30 [facility] Comment on above: Performed By: #### M G, HEPATIC, TROP I, LIP, CH8 ####[facility] PATHOLOGY RPYOAHKNUT0102 [place], Protein [Mass/Vol] 7.4 g/dL Normal 5.7-8.1 [facility] Comment on above: Performed By: #### M G, HEPATIC, TROP I, LIP, CH8 ####[facility] PATHOLOGY GVCINLBFTJ2384 [place], LIPASEon 03-12-2021 LIP 27 IU/L Normal <128 [facility] Comment on above: Performed By: #### M G, HEPATIC, TROP I, LIP, CH8 ####S PATHOLOGY EIWSRSBUGS8528 [place], MAGNESIUMon 03-12-2021 Magnesium [Mass/Vol] 1.9 mg/dL Normal 1.6-2.[address] [facility] Comment on above: Performed By: #### M G, HEPATIC, TROP I, LIP, CH8 ####[facility] PATHOLOGY HBOYGNSOAF2199 [place], OP Noteon 03-12-2021 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 Authentication Interface Message Text Normal [facility] 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 Authentication Interface Message Text See detailed note 03/12/2021 in the OR. Normal The [facility] PARTIAL THROMBOPLASTIN TIMEo n 03-12-2021 aPTT Coag (Bld) [Time] 38 s High 25-37 [facility] Comment on above: Performed By: #### P T, APTT ####S PATHOLOGY YEXCPRSPDE3012 [place], PLASMA STATUSon 03-12-2021 BLOOD PRODUCT CODE [id number] Normal [facility] Comment on above: Performed By: #### F FU ####S PATHOLOGY RLFXZNMYEN7123 [place], BLOOD PRODUCT CODE [id number] Normal [facility] Comment on above: Performed By: #### F FU ####S PATHOLOGY PJBBRKPLAM6394 [place], BLOOD PRODUCT DESCRIPTION FFP Normal [facility] Comment on above: Performed By: #### F FU ####S PATHOLOGY THDBGSMQMQ7838 [place], BLOOD PRODUCT STATUS Transfused Normal [facility] Comment on above: Performed By: #### F FU ####[facility] PATHOLOGY MOUR[address]OHAQ[address] [place] [address], BLOOD PRODUCT UNIT INFO [id number] Normal [facility] Comment on above: Performed By: #### F FU ####[facility] PATHOLOGY ISEVQKNORX1599 [place], BLOOD PRODUCT UNIT INFO [id number] Normal [facility] Comment on above: Performed By: #### F FU ####[facility] PATHOLOGY NDDCXVFILI5033 [place], BLOOD PRODUCT UNIT TYPE 8400 Normal [facility] Comment on above: Result Comment: AB P os Performed By: #### F FU ####[facility] PATHOLOGY MIILFCYALY4161 [place], PROTHROMBIN TIME AND INRon 1 INR Coag (PPP) [Relative time] 2.44 {INR} High 0.90-1.10 [facility] Comment on above: Performed By: #### P T, APTT ####S PATHOLOGY VMQJSAAXZO[address] [place] [address], PT Coag (PPP) [Time] 27.3 s High 9.7-12.9 [facility] Comment on above: Performed By: #### P T, APTT ####[facility] XPBEOKNNLW2635 [place], Progress Noteson 03-12-2021 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 Authentication Interface Message Text Normal [facility] RED BLOOD CELL COMPONENTon 1 BB ORDER ITEM Product status info to follow Normal [facility] Comment on above: Performed By: #### R RUFINO ####[facility] PATH[facility] IZBYFCAUSH4287 [place], RED BLOOD CELL UNIT STATUSon 03-12-2021 BLOOD PRODUCT CODE [id number] Normal [facility] Comment on above: Performed By: #### R BU ####[facility] PATH[facility]Y PYIFLUDPZP7420 [place], BLOOD PRODUCT DESCRIPTION Red Blood Cells Normal [facility] Comment on above: Performed By: #### R BU ####S PATHOLOGY DURNHZCPRQ4304 [place], BLOOD PRODUCT STATUS Transfused Normal [facility] Comment on above: Performed By: #### R BU ####S PATHOLOGY LXUWOYVUCE4115 [place], BLOOD PRODUCT STATUS Released to avail Normal [facility] Comment on above: Performed By: #### R BU ####[facility] PATH[facility] OTCGMMXEGY6422 [place], BLOOD PRODUCT UNIT INFO [id number] Normal [facility] Comment on above: Performed By: #### R BU ####[facility] PATH[facility] UJXRHOCYIA7816 [place], BLOOD PRODUCT UNIT INFO [id number] Normal [facility] Comment on above: Performed By: #### R BU ####[facility] PATH[facility] LFGJDAAFBO0192 [place], BLOOD PRODUCT UNIT TYPE 8400 Normal [facility] Comment on above: Result Comment: AB P os Performed By: #### R BU ####[facility] PATH[facility] [id number] [place], CROSSMATCH INTERPRETATION Compatible (E) Normal [facility] Comment on above: Performed By: #### R BU ####[facility] PATHOLOGY [id number] [place], TROPONIN Ion 03-12-2021 TROP I < 0.030 Normal <0.[address] [facility] Comment on above: Result Comment: Rang [...] M G, HEPATIC, TROP I, LIP, CH8 ####[facility] PATHOLOGY [id number] [place], TYPE AND SCREENon 03-12-2021 ABO and Rh group Nom (Bld) Blood group AB Rh(D) positive Normal [facility] Comment on above: Performed By: #### T S ####[facility] PATHOLOGY SSWGHIPMSD4432 [place], ABO and Rh group Nom (Bld) No Previous Results Normal [facility] Comment on above: Performed By: #### T S ####[facility] PATHOLOGY CQPFAZGRPR9742 [place], ABSC INT Negative Normal [facility] Comment on above: Performed By: #### T S ####[facility] PATHOLOGY YVPYNFAQSS5748 [place], XR CHEST 1 VIEW AP OR PAon 1 XR CHEST 1 VIEW AP OR PA Normal [facility] Coumadin Management: Lulyari n Calcon 03-29-2017 INR Coag RelTime (Bld) Hospital lab Invalid Interpretation Code [facility] Work Phone: [phone] INR Coag RelTime (Bld) 2.5 to 3.5 Invalid Interpretation Code [facility] Work Phone: [phone] INR Coag RelTime (PPP) 2.5 {INR} Invalid Interpretation Code [facility] Work Phone: [phone] international normalized ratio (INR) range 2.5 to 3.5 Invalid Interpretation Code [facility] Work Phone: [phone]) Prothrombin time (PT) Coag time (PPP) 25.9 s Invalid Interpretation Code [facility] Work Phone: [phone]) Lab Report: Prothrombin Time w/INRon 03-29-2017 Prothrombin time (PT) Coag time (PPP) 25.9 s High 11.7-14.9 [facility] Work Phone: [phone] Coumadin Management: [employer] Calcon 03-16-2017 INR Coag RelTime (Bld) 2.5 to 3.5 Invalid Interpretation Code [facility] Work Phone: [phone] Coumadin Management: [employer] Calcon 03-15-2017 INR Coag RelTime (Bld) Hospital lab Invalid Interpretation Code [facility] Work Phone: [phone]) Prothrombin time (PT) Coag time (PPP) 24.8 s Invalid Interpretation Code [facility] Work Phone: [phone]) Lab Report: Prothrombin Time w/INRon 03-15-2017 INR Coag RelTime (PPP) 2.4 {INR} Invalid Interpretation Code [facility] Work Phone: [phone]) Prothrombin time (PT) Coag time (PPP) 24.8 s High 11.7-14.9 [facility] Work Phone: [phone] Coumadin Management: [employer] Calcon 03-09-2017 INR Coag RelTime (Bld) Hospital lab Invalid Interpretation Code [facility] Work Phone: [phone] INR Coag RelTime (PPP) 2.1 {INR} Invalid Interpretation Code [facility] Work Phone: [phone] international normalized ratio (INR) range 2.5 to 3.5 Invalid Interpretation Code [facility] Work Phone: [phone]) Prothrombin time (PT) Coag time (PPP) 22.5 s Invalid Interpretation Code [facility] Work Phone: [phone]) Lab Report: Prothrombin Time w/INRon 03-09-2017 Prothrombin time (PT) Coag time (PPP) 22.5 s High 11.7-14.9 [facility] Work Phone: Coumadin Management: Lulysridevi Stewart 03-06-2017 INR Coag RelTime (Bld) Fingerstick Invalid Interpretation Code [facility] Work Phone: INR Coag RelTime (Bld) 2.5 to 3.5 Invalid Interpretation Code [facility] Work Phone: INR Coag RelTime (PPP) 2.0 {INR} Invalid Interpretation Code [facility] Work Phone: Prothrombin time (PT) Coag time (PPP) 24.4 s Invalid Interpretation Code [facility] Work Phone: Coumadin Management: Lulysridevi Stewart 03-02-2017 Coagulation tissue factor induced in platelet poor plasma 19.5 s Invalid Interpretation Code [facility] Work Phone: INR in blood by coagulation Fingerstick Invalid Interpretation Code [facility] Work Phone: INR in blood by coagulation 1.6 {INR} Invalid Interpretation Code [facility] Work Phone: INR in blood by coagulation 2.5 to 3.5 Invalid Interpretation Code [facility] Work Phone: Coumadin Management: Lulysridevi Stewart 02-21-2017 Coagulation tissue factor induced in platelet poor plasma 0 s Invalid Interpretation Code [facility] Work Phone: INR in blood by coagulation Fingerstick Invalid Interpretation Code [facility] Work Phone: INR in blood by coagulation 1.6 {INR} Invalid Interpretation Code [facility] Work Phone: INR in blood by coagulation 2.5 to 3.5 Invalid Interpretation Code [facility] Work Phone: Coumadin Management: Lulysridevi Stewart 02-13-2017 Coagulation tissue factor induced in platelet poor plasma 0 s Invalid Interpretation Code [facility] Work Phone: INR in blood by coagulation Fingerstick Invalid Interpretation Code [facility] Work Phone: INR in blood by coagulation 2.4 {INR} Invalid Interpretation Code [facility] Work Phone: [phone] INR in blood by coagulation 2.5 to 3.5 Invalid Interpretation Code [facility] Work Phone: [phone] Coumadin Management: Anthony Stewart 02-09-2017 INR Coag RelTime (Bld) Fingerstick [facility] Work Phone: [phone] INR Coag RelTime (PPP) 2.7 {INR} [facility] Work Phone: [phone] international normalized ratio (INR) range 2.5 to 3.5 [facility] Work Phone: [phone] Prothrombin time (PT) Coag time (PPP) 32.7 s [facility] Work Phone: [phone] Coumadin Management: Anthony Stewart 02-06-2017 Coagulation tissue factor induced in platelet poor plasma 0 s Invalid Interpretation Code [facility] Work Phone: [phone] INR in blood by coagulation Fingerstick Invalid Interpretation Code [facility] Work Phone: [phone] INR in blood by coagulation 5.2 {INR} Invalid Interpretation Code [facility] Work Phone: [phone] INR in blood by coagulation 2.5 to 3.5 Invalid Interpretation Code [facility] Work Phone: [phone] Coumadin Management: Anthony Stewart 01-29-2017 INR Coag RelTime (Bld) Hospital lab [facility] Work Phone: [phone] INR Coag RelTime (PPP) 2.8 {INR} [facility] Work Phone: [phone] international normalized ratio (INR) range 2.5 to 3.5 [facility] Work Phone: [phone] Prothrombin time (PT) Coag time (PPP) 0 s [facility] Work Phone: [phone] Coumadin Management: Anthony Stewart 11-08-2016 INR Coag (Bld) [Relative time] Hospital lab Invalid Interpretation Code [facility] Work Phone: INR Coag (PPP) [Relative time] 2.8 {INR} [facility] Work Phone: INR in blood by coagulation 2.8 {INR} Invalid Interpretation Code [facility] Work Phone: [phone] INR in blood by coagulation 2.5 to 3.5 Invalid Interpretation Code [facility] Work Phone: [phone] international normalized ratio (INR) range 2.5 to 3.5 [facility] Work Phone: [phone] PT Coag (PPP) [Time] 28.4 s Invalid Interpretation Code [facility] Work Phone: [phone] Lab Report: Prothrombin Time w/INRon 11-08-2016 PT Coag (PPP) [Time] 28.4 s High 11.7-14.[address] [facility] Work Phone: [phone] Office Visit: [facility] 11-09-19 17 Documentation of current medications (procedure) Done Invalid Interpretation Code [facility] Work Phone: [phone] Fall risk assessment No Invalid Interpretation Code [facility] Work Phone: [phone] Protein mass conc Done Invalid Interpretation Code [facility] Work Phone: [phone] Clinical Lists Updateon Left ventricular Ejection fraction 65 % Invalid Interpretation Code [facility] Work Phone: [phone] Office Visit: continue on Au gmentin until surgeryon 09-27-2016 Adolescent depression screening assessment Adolescent depression screening assessment Invalid Interpretation Code [facility] Work Phone: Adult depression screening assessment Adolescent depression screening assessment Invalid Interpretation Code [facility] Work Phone: [phone] Documentation of current medications (procedure) Done Invalid Interpretation Code [facility] Work Phone: Coumadin Management: Warfari n Calcon 09-25-2016 Coagulation tissue factor induced in platelet poor plasma 24.7 s Invalid Interpretation Code [facility] Work Phone: [phone] INR in blood by coagulation Hospital lab Invalid Interpretation Code [facility] Work Phone: [phone] INR in blood by coagulation 2.3 {INR} Invalid Interpretation Code [facility] Work Phone: [phone] INR in blood by coagulation 2.5 to 3.5 Invalid Interpretation Code [facility] Work Phone: Lab Report: Basic Metabolic Profile (BMP)on 09-25-2016 Anion gap 4 mmol/L Low 5-15 [facility] Work Phone: Anion gap 4 molar conc 4 Low 5-15 [facility] Work Phone: [phone] Anion gap [Moles/Vol] 4 mmol/L Low 5-15 [facility] Work Phone: [phone] BUN/Creatinine Ratio 14.2 RATIO Invalid Interpretation Code 10-20 [facility] Work Phone: Calcium 8.7 mg/dL Invalid Interpretation Code 8.5-10.1 [facility] Work Phone: [phone] Chloride 105 mmol/L Invalid Interpretation Code 98-107 [facility] Work Phone: [phone] CO2 28.0 mmol/L Invalid Interpretation Code 21.0-32.0 [facility] Work Phone: [phone] CO2 (BldV) [Partial pressure] 28.0 mmol/L Invalid Interpretation Code 21.0-32.0 [facility] Work Phone: [phone] Creatinine 1.20 mg/dL Invalid Interpretation Code 0.70-1.30 [facility] Work Phone: eGFR (non-black) 77 mL/min/{1.73_m2} Invalid Interpretation Code >60 [facility] Work Phone: eGFR (non-black) 63 mL/min/{1.73_m2} Invalid Interpretation Code >60 [facility] Work Phone: [phone] EST GFR - AA 77 mL/min Invalid Interpretation Code >60 [facility] Work Phone: [phone] Glucose 143 mg/dL High 70-110 [facility] Work Phone: Glucose [Mass/Vol] 143 mg/dL High 70-110 [facility] Work Phone: [phone] Potassium 4.2 mmol/L Invalid Interpretation Code 3.5-5.1 [facility] Work Phone: Sodium 137 mmol/L Invalid Interpretation Code 136-145 [facility] Work Phone: Urea nitrogen 17 mg/dL Invalid Interpretation Code 7-18 [facility] Work Phone: Lab Report: Prothrombin Time w/INRon 09-25-2016 Coagulation tissue factor induced in platelet poor plasma 24.7 s High 11.7-14.9 [facility] Work Phone: Office Visit: E coli bactere irene/diverticulitis/cystitis/enterovesc. fistulaon 08-07-2016 Adult depression screening assessment Adult depression screening assessment Invalid Interpretation Code [facility] Work Phone: PHQ-9 quick depression assessment panel [Reported.PHQ] Adult depression screening assessment Invalid Interpretation Code [facility] Work Phone: [phone] Tobacco smoking status NHIS Former smoker Invalid Interpretation Code [facility] Work Phone: [phone] Tobacco use CPHS Former smoker Invalid Interpretation Code [facility] Work Phone: Lab Report: Basic Metabolic Profile (BMP)on 08-06-2016 Creatinine 72.20 mL/min Invalid Interpretation Code [facility] Work Phone: Lab Report: Erythrocyte Sed Rateon 08-06-2016 Erythrocyte sedimentation rate 41 mm/h High 0-20 [facility] Work Phone: Replaced Document: (P) CBC W /Diff, Automatedon 08-06-2016 Absolute Neut 9.1 X10 3/UL High 2.0-7.7 [facility] Work Phone: [phone] Basophils/100 leukocytes 0.3 % Invalid Interpretation Code 0-1 [facility] Work Phone: Basophils/100 WBC (Bld) 0.3 % 0-1 [facility] Work Phone: [phone] Eosinophils/100 leukocytes 1.5 % Invalid Interpretation Code 0-5 [facility] Work Phone: Eosinophils/100 WBC (Bld) 1.5 % 0-5 [facility] Work Phone: [phone] Erythrocyte distribution width (RBC) [Ratio] 43.4 fL 35.1-43.9 [facility] Work Phone: [phone] Erythrocyte distribution width (RBC) [Ratio] 13.6 % 11.6-14.6 [facility] Work Phone: [phone] Erythrocyte distribution width Auto Ratio (RBC) 43.4 fL Invalid Interpretation Code 35.1-43.9 [facility] Work Phone: [phone] Erythrocytes (RBC) 5.09 10*6/uL Invalid Interpretation Code 4.6-6.2 [facility] Work Phone: Hematocrit (Bld) [Volume fraction] 45.0 % 40-54 [facility] Work Phone: [phone] Hematocrit (HCT) 45.0 % Invalid Interpretation Code 40-54 [facility] Work Phone: Hemoglobin (HGB) 15.3 g/dL Invalid Interpretation Code 13.0-16.5 [facility] Work Phone: Immature granulocytes (Bld) [#/Vol] 0.200 % Invalid Interpretation Code 0.0-0.9 [facility] Work Phone: [phone] immature granulocytes, percentage of total cells, blood 0.200 % Invalid Interpretation Code 0.0-0.9 [facility] Work Phone: Immature granulocytes/100 WBC (Bld) 0.200 % Invalid Interpretation Code 0.0-0.9 [facility] Work Phone: [phone] Lymphocytes 1.40 X10 3/UL Invalid Interpretation Code 0.83-4.51 [facility] Work Phone: Lymphocytes (Bld) [#/Vol] 1.40 X10 3/UL 0.83-4.51 [facility] Work Phone: [phone] Lymphocytes/100 leukocytes 11.4 % Low 19-41 [facility] Work Phone: Lymphocytes/100 WBC (Bld) 11.4 % Low 19-41 [facility] Work Phone: [phone] MCH 30.1 pg Invalid Interpretation Code 27.0-32.0 [facility] Work Phone: MCH (RBC) [Entitic mass] 30.1 pg 27.0-32.0 [facility] Work Phone: MCHC 34.0 G/GL Invalid Interpretation Code 32-36 [facility] Work Phone: MCHC (RBC) [Mass/Vol] 34.0 G/GL 32-36 [facility] Work Phone: [phone] MCV 88.4 fL Invalid Interpretation Code 80-94 [facility] Work Phone: MCV (RBC) [Entitic vol] 88.4 fL 80-94 [facility] Work Phone: [phone] Monocytes/100 leukocytes 12.2 % High 0-10 [facility] Work Phone: Monocytes/100 WBC (Bld) 12.2 % High 0-10 [facility] Work Phone: [phone] neutrophil count, blood 9.1 X10 3/UL High 2.0-7.7 [facility] Work Phone: Neutrophils (Bld) [#/Vol] 9.1 X10 3/UL High 2.0-7.7 [facility] Work Phone: [phone] Neutrophils Auto #/vol (Bld) 9.1 X10 3/UL High 2.0-7.7 [facility] Work Phone: [phone] Neutrophils/100 leukocytes 74.4 % High 47-70 [facility] Work Phone: Neutrophils/100 WBC (Bld) 74.4 % High 47-70 [facility] Work Phone: Platelet mean volume (Bld) [Entitic vol] 10.4 fL 6.2-12.0 [facility] Work Phone: Platelets 306 10*3/mm3 Invalid Interpretation Code 150-450 [facility] Work Phone: Platelets (Bld) [#/Vol] 306 10*3/mm3 150-450 [facility] Work Phone: [phone] PMV by Jojo 10.4 fL Invalid Interpretation Code 6.2-12.0 [facility] Work Phone: RBC (Bld) [#/Vol] 5.09 10*6/uL 4.6-6.2 [facility] Work Phone: [phone] RDW SD 43.4 fL Invalid Interpretation Code 35.1-43.9 [facility] Work Phone: [phone] RDW-CA 13.6 % Invalid Interpretation Code 11.6-14.6 [facility] Work Phone: [phone] red blood cell distribution width, size density 43.4 fL Invalid Interpretation Code 35.1-43.9 [facility] Work Phone: [phone] WBC (Bld) [#/Vol] 12.2 10*3/uL High 4.4-11.0 [facility] Work Phone: [phone] WBC (Leukocytes) 12.2 10*3/uL High 4.4-11.0 [facility] Work Phone: Lab Report: Lipid Profileon 05-10-2016 Cholesterol 205 mg/dL High 200 [facility] Work Phone: HDL Cholesterol 34 mg/dL Low [facility] Work Phone: LDL Cholesterol 141 mg/dL High 0-130 [facility] Work Phone: Triglyceride 150 mg/dL Invalid Interpretation Code [facility] Work Phone: very low density lipoproteins 30 mg/dL Invalid Interpretation Code 5-40 [facility] Work Phone: Office Visit: [facility] 05-10-20 16 Dietary management education, guidance, and counseling (procedure) yes Invalid Interpretation Code [facility] Work Phone: Lab Report: (P) Lyme Screen W/Reflex WBon 09-17-2015 Borrelia burgdorferi (Lyme Disease,) DNA 1.07 High 0.00-0.90 [facility] Work Phone: Lab Report: Lyme Screen W/Re flex WBon 09-17-2015 LYME DISEASE INTERPRETATION REF LAB Invalid Interpretation Code [facility] Work Phone: LYME SCN INTERP REF LAB Invalid Interpretation Code [facility] Work Phone: [phone] Lab Report: Rapid Plasmin Re agin (RPR)on 09-17-2015 Reagin Ab VDRL Qn (S) NONREACTIVE Invalid Interpretation Code NONREACTIVE [facility] Work Phone: [phone] Reagin antibody presence NONREACTIVE Invalid Interpretation Code NONREACTIVE [facility] Work Phone: Microbiology: Culture, Blood (WB)on 09-17-2015 Bacteria culture BCNo growth in 5 days. Invalid Interpretation Code [facility] Work Phone: Microbiology: Culture, Wound on 09-16-2015 CUW . Invalid Interpretation Code [facility] Work Phone: [phone] wound culture . Invalid Interpretation Code [facility] Work Phone: Replaced Document: (P) SAUL w / Reflex Mult Confirmon 09-15-2015 SAUL Titer Negative Invalid Interpretation Code Negative [facility] Work Phone: Nuclear Ab IA Qn (S) Negative Invalid Interpretation Code Negative [facility] Work Phone: [phone] Clinical Lists Updateon 09-02 Alanine aminotransferase (ALT) 60 U/L Invalid Interpretation Code [facility] Work Phone: Alkaline phosphatase (ALP) 103 U/L Invalid Interpretation Code [facility] Work Phone: ALP (Bld) [Catalytic activity/Vol] 103 U/L Invalid Interpretation Code [facility] Work Phone: [phone] Aspartate aminotransferase (AST) 34 U/L Invalid Interpretation Code [facility] Work Phone: Bilirubin (total) 0.9 mg/dL Invalid Interpretation Code [facility] Work Phone: Clinical Lists Updateon 09-02 Left ventricular Ejection fraction 53 % Invalid Interpretation Code [facility] Work Phone: Lab Report: CRPon 09-13-2015 C reactive protein (CRP) 4.71 mg/dL High Units converted. See lab report for original value. [facility] Work Phone: Lab Report: Magnesiumon 09-02 Magnesium 1.9 mg/dL Invalid Interpretation Code 1.8-2.4 [facility] Work Phone: Lab Report: CBC W/Diff, Auto matedon 09-11-2015 complete blood count (CBC), comments SLIDE SCANNED Invalid Interpretation Code [facility] Work Phone: Pathologist (cervix/vaginal) May foll Invalid Interpretation Code [facility] Work Phone: SMEAR COMMENT SLIDE SCANNED Invalid Interpretation Code [facility] Work Phone: [phone] Lab Report: Liver Profileon 09-11-2015 Albumin 3.5 g/dL Invalid Interpretation Code 3.4-5.0 [facility] Work Phone: Bilirubin (direct) 0.17 mg/dL Invalid Interpretation Code 0.00-0.30 [facility] Work Phone: Globulin 4.2 g/dL High 2.3-3.5 [facility] Work Phone: Globulin (S) [Mass/Vol] 4.2 g/dL High 2.3-3.5 [facility] Work Phone: [phone] Protein 7.7 g/dL Invalid Interpretation Code 6.4-8.2 [facility] Work Phone: Lab Report: Rheumatoid Facto krishan 09-11-2015 rheumatoid factor < 10.0 Invalid Interpretation Code <15 [facility] Work Phone: Replaced Document: Urinalysi s, Completeon 09-11-2015 Albumin Ql (U) 15 High Negative [facility] Work Phone: [phone] Bilirubin Ql (U) Negative Invalid Interpretation Code Negative [facility] Work Phone: [phone] Ketones (U) [Mass/Vol] Negative Invalid Interpretation Code Negative [facility] Work Phone: [phone] Mucus Ql (Urine sed) RARE [facility] Work Phone: [phone] NITRITE UR Negative Invalid Interpretation Code Negative [facility] Work Phone: [phone] Nitrite Urine Negative Invalid Interpretation Code Negative [facility] Work Phone: [phone] Occult Blood, urine 10 High Negative [facility] Work Phone: [phone] OCCULT BLOOD-UR 10 High Negative [facility] Work Phone: [phone] pH (U) 5.0 [pH] 5.0 - 8.0 [facility] Work Phone: [phone] specific gravity, urine 1.020 Invalid Interpretation Code 1.002-1.030 [facility] Work Phone: [phone] Urine, bacteria in sediment RARE /hpf Invalid Interpretation Code None Seen [facility] Work Phone: [phone] Urine, bilirubin presence Negative Invalid Interpretation Code Negative [facility] Work Phone: [phone] Urine, clarity Sl. Cloudy Invalid Interpretation Code Clear [facility] Work Phone: [phone] Urine, color Yellow Invalid Interpretation Code Yellow [facility] Work Phone: [phone] Urine, epithelial cells in sediment 0 SEEN Invalid Interpretation Code 0-5 [facility] Work Phone: [phone] Urine, erythrocytes in sediment by volume 0-5 SEEN Invalid Interpretation Code 0-5 [facility] Work Phone: [phone] Urine, glucose presence Normal mg/dl Invalid Interpretation Code Normal [facility] Work Phone: [phone] Urine, ketones presence Negative Invalid Interpretation Code Negative [facility] Work Phone: [phone] Urine, leukocyte esterase presence Negative Invalid Interpretation Code Negative [facility] Work Phone: [phone] Urine, mucus presence in sediment RARE Invalid Interpretation Code [facility] Work Phone: [phone] Urine, pH 5.0 [pH] Invalid Interpretation Code 5.0 - 8.0 [facility] Work Phone: Urine, protein 15 mg/dL High Negative [facility] Work Phone: [phone] UROBILI Normal mg/dl Invalid Interpretation Code Normal [facility] Work Phone: [phone] urobilinogen, urine, by dipstick Normal mg/dl Invalid Interpretation Code Normal [facility] Work Phone: WBC 0 SEEN Invalid Interpretation Code 0-5 [facility] Work Phone: [phone] WBC (Bld) [#/Vol] 0 SEEN 0-5 [facility] Work Phone: [phone] WBC (Leukocytes) 0 SEEN Invalid Interpretation Code 0-5 [facility] Work Phone: Office Visit: 6 month F/U, W ER F/Uon 06-30-2015 Tobacco smoking status NHIS Never Invalid Interpretation Code [facility] Work Phone: Microbiology: Culture, Urine on 06-17-2015 CUUR Urine CultureCulture exhibits no growth. Invalid Interpretation Code [facility] Work Phone: [phone] GE use only - for [employer] import when terms are not otherwise specified Urine CultureCulture exhibits no growth. Invalid Interpretation Code [facility] Work Phone: Lab Report: Comprehensive Me tabolic Profilon 06-15-2015 Albumin/Globulin Ratio 0.8 {ratio} Low 0.9-2.4 [facility] Work Phone: Lab Report: Lactic Acidon Lactate 1.3 mmol/L Invalid Interpretation Code 0.4-2.0 [facility] Work Phone: Lab Report: Partial Thrombop last Timeon 06-15-2015 aPTT 45.1 s High 24.1-36.2 [facility] Work Phone: Office Visit: [facility] 04-14-20 15 General cardiovascular disease 10Y risk [#] Hart.D'Agostino 27 % Invalid Interpretation Code [facility] Work Phone: Replaced Document: Midmark E CG Observationson 04-14-2015 BUN (urea nitrogen) Sinus Rhythm -Right bundle branch block. ABNORMAL Invalid Interpretation Code [facility] Work Phone: EKG QRS axis 24 deg Invalid Interpretation Code [facility] Work Phone: P Nolan 90 deg Invalid Interpretation Code [facility] Work Phone: P wave axis, electrocardiogram 90 deg Invalid Interpretation Code [facility] Work Phone: DE Interval 188 ms Invalid Interpretation Code [facility] Work Phone: DE interval, electrocardiogram 188 ms Invalid Interpretation Code [...] Code [facility] Work Phone: T Nolan 41 deg Invalid Interpretation Code [facility] [...] High 2.0-7.7 [facility] Work Phone: [phone] Lab Report: TSHon 08-26-2013 Thyroid stimulating hormone (TSH) 2.26 u[iU]/mL Normal 0.358-3.74 [facility] Work Phone: Lab Report: T4on 12-18-2011 Thyroxine (T4) 8.1 ug/dL Normal 4.5-12.1 [facility] Work Phone: Replaced Document: Giovannimark E CG Observationson 12-11-2011 Pulse (Heart Rate) 446 ms Invalid Interpretation Code [facility] Work Phone: Vital Signs Date Time Vital Sign Value Performing Clinician Facility 08-10-2023 13:30-0500 Diastolic blood pressure 57 mm[Hg] Wiley Covington MD Work Phone: [facility] 08-10-2023 13:30-0500 Heart rate 77 /min Wiley Covington MD Work Phone: [facility] 08-10-2023 13:30-0500 Respiratory rate 20 /min Wiley Covington MD Work Phone: [facility] 08-10-2023 13:30-0500 SaO2% (BldA) [Mass fraction] 94 % Wiley Covington MD Work Phone: [facility] 08-10-2023 13:30-0500 Systolic blood pressure 113 mm[Hg] Wiley Covington MD Work Phone: [facility] 06-19-2023 10:31-0500 Body temperature 98.01 [degF] Wiley Covington MD Work Phone: [facility] 06-19-2023 10:31-0500 Diastolic blood pressure 56 mm[Hg] Wiley Covington MD Work Phone: [facility] 06-19-2023 10:31-0500 Heart rate 55 /min Wiley Covington MD Work Phone: [facility] 06-19-2023 10:31-0500 Respiratory rate 18 /min Wiley Covington MD Work Phone: [facility] 06-19-2023 10:31-0500 SaO2% (BldA) [Mass fraction] 100 % Wiley Covington MD Work Phone: [facility] 06-19-2023 10:31-0500 Systolic blood pressure 116 mm[Hg] Wiley Covington MD Work Phone: [facility] 06-17-2023 05:49-0500 Body mass index (BMI) [Ratio] 28.84 kg/m2 Wiley Covington MD Work Phone: [facility] 06-17-2023 05:49-0500 Body weight 96.45 kg Wiley Covington MD Work Phone: [facility] Comment on above: Standing 06-06-2023 23:07-0500 Body height 182.9 cm Wiley Covington MD Work Phone: [facility] Comment on above: estimated 11-08-2016 07:36-0400 BMI (Body Mass Index) 31.35 kg/m2 [facility] Work Phone: 11-08-2016 07:36-0400 BP Diastolic 68 mm[Hg] [facility] Work Phone: 11-08-2016 07:36-0400 BP Systolic 130 mm[Hg] [facility] Work Phone: 11-08-2016 07:36-0400 Height 187.96 cm [facility] Work Phone: 11-08-2016 07:36-0400 Pulse (Heart Rate) 76 /min Renee Jade RN [facility] Work Phone: 11-08-2016 07:36-0400 Respiratory Rate 20 /min Renee Jade RN [facility] Work Phone: 11-08-2016 07:36-0400 Weight 110.77 kg Renee Jade RN [facility] Work Phone: 09-27-2016 09:41-0400 BMI (Body Mass Index) 30.96 kg/m2 Jovana Signs MD [facility] Work Phone: 09-27-2016 09:41-0400 Body Temperature 97.5 [degF] Jovana Signs MD [facility] Work Phone: 09-27-2016 09:41-0400 Body weight 109.41 kg Renee Jade RN [facility] Work Phone: 09-27-2016 09:41-0400 BP Diastolic 71 mm[Hg] Jovana Signs MD [facility] Work Phone: 09-27-2016 09:41-0400 BP Systolic 113 mm[Hg] Jovana Signs MD [facility] Work Phone: 09-27-2016 09:41-0400 Height 187.96 cm Jovana Signs MD [facility] Work Phone: 09-27-2016 09:41-0400 Pulse (Heart Rate) 63 /min Jovana Signs MD [facility] Work Phone: 09-27-2016 09:41-0400 Pulse Oximetry 97 % Jovana Signs MD [facility] Work Phone: 09-27-2016 09:41-0400 Respiratory Rate 20 /min Jovana Signs MD [facility] Work Phone: 09-27-2016 09:41-0400 Weight 109.41 kg Jovana Signs MD [facility] Work Phone: 08-06-2016 15:38-0500 Body surface area Derived from formula 72.20 mL/min Renee Jade RN [facility] Work Phone: 05-10-2016 13:44-0500 BSA (Body Surface Area) 2.34 m2 Jovana Signs MD [facility] Work Phone: 04-14-2015 13:10-0500 Heart rate 69 /min Renee Jade RN [facility] Work Phone: 12-11-2011 13:40-0400 Heart rate 446 ms Renee Jade RN [facility] Work Phone: 06-12-2011 13:43-0500 BP Diastolic 62 mm[Hg] Jovana Signs MD [facility] Work Phone: 06-12-2011 13:43-0500 BP Systolic 130 mm[Hg] Jovana Signs MD [facility] Work Phone: Encounters Encounter Date Encounter Type Care Provider Facility Start: 12-16-2024 ambulatory Kuldeep H Roof Facility:[facility] Start: 11-10-2024 End: 11-10-2024 ambulatory Louie [facility]3] Facility:[facility] Start: 11-10-2024 End: 11-10-2024 ambulatory Kuldeep H Roof Facility:[facility] Start: 10-11-2024 End: 10-11-2024 Emergency department patient visit Amor Carmona Facility:[facility] Start: 09-26-2024 ambulatory Louie [facility]3] Facility: [facility] Start: 08-25-2024 ambulatory Louie YousifGrant Facility: [facility] Start: 08-23-2024 ambulatory Krys L Jorgito Facility :[facility] Start: 08-23-2024 End: 08-27-2024 Evaluation and management of inpatient Krys L White Facility:[facility] Start: 07-11-2024 End: 07-11-2024 ambulatory Louie [facility]3] Facility:[facility] Start: 06-17-2024 [facility] Start: 05-09-2024 End: 05-09-2024 Emergency department patient visit Jeancarlos Ritter Facility:[facility] Start: 03-04-2024 ambulatory Kuldeep H Roof Facility:[facility] Start: 03-03-2024 Encounter for genera l adult medical examination without abnormal findings Cedrick Willingham [facility] Start: 02-22-2024 End: 02-22-2024 ambulatory Kuldeep Austin Facility:[facility] Start: 02-13-2024 End: 02-13-2024 ambulatory Cedrick Willingham Facility:[facility] Start: 02-12-2024 ambulatory Louie Burns Facility: [facility] Start: 01-24-2024 ambulatory Louie Burns Facility: [facility] Start: 01-22-2024 ambulatory Nagapradeshonna Nagsayra Fa cility:[facility] Start: 01-21-2024 ambulatory Zhanglanre Florentino Facility: [facility] Start: 01-21-2024 End: 01-30-2024 Evaluation and management of inpatient Zhang Chadd Facility:[facility] Start: 01-19-2024 End: 01-19-2024 Emergency department patient visit Braden Burns Facility:[facility] Start: 01-18-2024 End: 01-18-2024 ambulatory Louie Burns Facility:[facility] Start: 01-18-2024 End: 01-18-2024 ambulatory Tex GODOY Facility:[facility] Start: 11-29-2023 ambulatory ASHA T BREDEHOEFT Facil ity:[facility] Start: 08-16-2023 ambulatory ASHA T BREDEHOEFT Facil ity:[facility] Start: 08-10-2023 ambulatory LOUIE BURNS Facilit y:[facility] Start: 08-10-2023 End: 08-10-2023 Subsequent hospital visit by physician Wiley Covington MD Work Phone: Cardiovascular Imaging [facility] Comment on above: Arrived Start: 06-06-2023 End: 06-19-2023 Evaluation and management of inpatient Deangelo Ley MD Work Phone: Comment on above: Endocarditis Start: 04-20-2021 ambulatory LOUIE BURNS Facili ty:[facility] Start: 03-29-2021 End: 04-05-2021 Evaluation and management of inpatient LOUIE Appiah GRANT Facility:[facility] Start: 03-29-2021 End: 03-29-2021 ambulatory LUIS DEYR Facility:[facility] Start: 03-24-2021 ambulatory LOUIE BURNS Facili [...] Start: 09-28-2016 End: 09-29-2016 Ambulatory RYAN CLARKCHARBEL Facility:[facility] Procedures Date Procedure Procedure Detail Performing [...] Other Other Start: 06-17-2023 Creatinine blood Wiley Covington MD Work Phone: Start: 06-16-2023 Thromboplastin time [...] 06-15-2023 Assay of magnesium Shirley M Rossi 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 [employer] Work Phone: Start: 06-14-2023 CONTINUOUS CARDIAC MONITORING STRIP Other Other Start: 06-14-2023 Thromboplastin time partial plasma/whole blood Heike Milan MD Work Phone: Start: 06-14-2023 CONTINUOUS CARDIAC MONITORING STRIP Other Other Start: 06-14-2023 Radiologic exam chest single view Wiley Covington MD Work Phone: Start: 06-14-2023 Assay of magnesium Shirley M Rossi 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 [employer] Work Phone: Start: 06-13-2023 CONTINUOUS CARDIAC MONITORING STRIP Other Other Start: 06-13-2023 Thromboplastin time partial plasma/whole blood Heike Milan MD Work Phone: Start: 06-13-2023 Drug screen quantitative gentamicin Haley Mahmood [facility] Start: 06-13-2023 Blood count platelet automated Heike Milan MD Work Phone: Start: 06-13-2023 Thromboplastin time partial plasma/whole blood Heike Milan MD Work Phone: Start: 06-13-2023 Assay of magnesium Shirley M Rossi 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 [employer] Work Phone: Start: 06-12-2023 Drug screen quantitative gentamicin Rigoberto Landon [facility] Start: 06-12-2023 Thromboplastin time partial plasma/whole blood [...] screen quantitative gentamicin Kelvin Luis Angel Pitts [facility] Work Phone: Start: 06-10-2023 Thromboplastin time partial [...] Work Phone: Start: 06-08-2023 Assay of magnesium Heike Milan MD Work Phone: Start: 06-08-2023 Drug screen quantitative gentamicin [place] J Vulvara [facility] Start: 06-07-2023 Thromboplastin time partial plasma/whole blood [...] Up Appt 1 year Louie Dent Hedrick HOME ADMINISTRATOR-C Start: 05-10-2016 End: 05-10-2016 Follow Up Appt 6 months Louie Dent Hedrick HOME ADMINISTRATOR -C Start: 05-10-2016 End: 05-10-2017 INR in Platelet poor plasma by Coagulation assay Louie Dent Hedrick HOME ADMINISTRATOR-C Start: 05-10-2016 End: 05-11-2016 Lipid 1996 panel - Serum or Plasma Louie Dent Hedrick HOME ADMINISTRATOR-C Start: 05-10-2016 End: 05-10-2016 MMM Louie Jeffder HOME ADMINISTRATOR-C Start: 05-10-2016 End: 05-10-2016 PFM Louie Hedrick HOME ADMINISTRATOR-C Start: 05-10-2016 End: 05-10-2016 Dietary management education, guidance, and counseling Renee Jade RN Start: 05-10-2016 End: 05-10-2017 Coagulation factor induced.INR assay in platelet poor plasma Louie Hedrick HOME ADMINISTRATOR-C Start: 05-10-2016 End: 05-10-2016 Follow Up Appt 1 year Louie Hedrick HOME ADMINISTRATOR-C Start: 05-10-2016 End: 05-10-2016 Follow Up Appt 6 months Louie Hedrick HOME ADMINISTRATOR -C Start: 05-10-2016 End: 05-11-2016 Lipid panel [AGGREGATE] Louie Hedrick HOME ADMINISTRATOR -C Start: 05-10-2016 End: 05-10-2016 MMM Louie Hedrick HOME ADMINISTRATOR-C Start: 05-10-2016 End: 05-10-2016 PFM Louie Hedrick HOME ADMINISTRATOR-C Start: 11-08-2015 End: 11-08-2015 Follow Up Appt [...] End: 10-13-2014 Documentation of current medications Markus rTan MD Start: 10-12-2014 End: 10-12-2014 Follow Up [...] Start: 10-12-2014 End: 05-03-2016 Lipid panel [AGGREGATE] aMrkus Tran MD Start: 10-12-2014 End: 10-12-2014 [facility] Markus Tran MD Start: 02-23-2014 End: 02-23-2014 [...] Other Markus Tran MD Start: 01-16-2013 End: 01-17-2013 INR in [...] *Hepatic Function Panel Abhijeet Kee MD Start: 02-26-2012 End: 06-06-2012 [...] EDT Office Visit [facility] [address] [place], [place] [id number] Titi Sabillon MD (John) [address] [place] [phone] [facility] Start: 08-16-2023 End: 08-16-2023 Telemedicine consultation with patient 08/16/2023 10:30 AM EDT Telemedicine Infectious Diseases Care [facility] [address] [facility] [place] [phone] Asha Bundy MD [address] [place] [phone] Infectious Diseases Care [facility] Start: 08-02-2023 End: 08-02-2023 Patient encounter procedure 08/02/2023 10:00 AM EST Office Visit Infectious Diseases Care [facility] [address] [place] [phone] Asha Bundy MD [address] [place] [phone] Infectious Diseases Care [facility] Start: 07-30-2023 End: 07-30-2023 Patient encounter procedure 07/30/2023 10:00 AM EST Office Visit [facility] [address] [place] [phone] Titi Sabillon MD (John) [address] [place] [phone] [facility] Start: 07-26-2023 End: 07-26-2023 Patient encounter procedure 07/26/2023 11:00 AM EST Appointment Cardiovascular Imaging Lab [facility] [address] [place] [phone] Wiley Covington MD [address] [place] [phone] Cardiovascular Imaging Lab [facility] Start: 07-23-2023 End: 08-10-2023 Transesophageal echocardiography ECHOCARDIOGRAM TRANSESOPHAGEAL (FER) Echocardiography Routine Acute bacterial endocarditis Expected: 07/23/2023, Expires: 08/10/[address] [facility] Work Phone: Comment on above: Expected: 07/23/2023, Expires: 4 Start: 06-15-2023 End: 06-15-2024 Transesophageal echocardiography ECHOCARDIOGRAM TRANSESOPHAGEAL (FER) Echocardiography Routine Acute bacterial endocarditis Expected: 06/15/2023, Expires: 06/15/[address] [facility] Comment on above: Expected: 06/15/2023, Expires: 5 Start: 05-25-2017 End: 05-25-2017 Appointment Appointment [facility] Work Phone: Start: 05-14-2017 End: 05-14-2017 Appointment Appointment [facility] Work Phone: Start: 05-14-2017 End: 05-14-2017 Appointment Appointment [facility] Work Phone: Start: 05-10-2017 End: 05-11-2016 *Hepatic Function Panel *Hepatic Function Panel [facility] Work Phone: Start: 05-10-2017 End: 05-11-2016 Lipid panel [AGGREGATE] *Lipid Profile CC PCP [facility] Work Phone: Start: 05-10-2017 End: [...] platelet poor plasma *PT/INR - Standing Order [facility] Work Phone: Start: 11-08-2016 End: 11-08-2016 Follow Up Appt Other Follow Up Appt Other [facility] Work Phone: Start: 05-10-2016 End: 05-10-2016 Follow Up Appt 1 year Follow Up Appt 1 year [facility] Work Phone: Start: 05-10-2016 End: 05-10-2016 Follow Up Appt 6 months Follow Up Appt 6 months [facility] Work Phone: Start: 05-10-2016 End: 09-25-2016 INR Coag RelTime (PPP) [facility] Work Phone: Start: 05-10-2016 End: 05-11-2016 Lipid panel [AGGREGATE] *Lipid Profile CC PCP [facility] Work Phone: Start: 05-10-2016 End: 05-10-2016 MMM MMM [facility] Work Phone: Start: 05-10-2016 End: 05-10-2016 PFM PFM [facility] Work Phone: Start: 05-10-2016 End: 09-25-2016 Coagulation factor induced.INR assay in platelet poor plasma [facility] Work Phone: Start: 05-10-2016 End: 05-10-2016 Follow Up Appt 1 year Follow Up Appt 1 year [facility] Work Phone: Start: 05-10-2016 End: 05-10-2016 Follow Up Appt 6 months Follow Up Appt 6 months [facility] Work Phone: Start: 05-10-2016 End: 05-11-2016 Lipid panel [AGGREGATE] *Lipid Profile CC PCP [facility] Work Phone: Start: 05-10-2016 End: 05-10-2016 MMM MMM [facility] Work Phone: Start: 05-10-2016 End: 05-10-2016 PFM PFM [facility] Work Phone: Start: 11-08-2015 End: 11-08-2015 Follow Up Appt 6 months Follow Up Appt 6 months [facility] Work Phone: Start: 11-08-2015 End: 11-08-2015 MMM MMM [facility] Work Phone: Start: 11-08-2015 End: 11-08-2015 Follow Up Appt 6 months Follow Up Appt 6 months [facility] Work Phone: Start: 11-08-2015 End: 11-08-2015 MMM MMM [facility] Work Phone: Start: 06-08-2015 Pneumococcal vaccination PNEUMOCOCCAL VACCINE SERIES (2 of 2 - PCV) [facility] Start: 04-14-2015 End: 04-14-2015 *CBC with Differential *CBC with Differential [facility] Work Phone: Start: 04-14-2015 End: 04-14-2015 Ecg routine ecg w/least 12 lds w/i&r EKG (In office) [facility] Work Phone: Start: 04-14-2015 End: 04-14-2015 Follow Up Appt 6 months Follow Up Appt 6 months [facility] Work Phone: Start: 04-14-2015 End: 04-14-2015 INR Coag RelTime (PPP) *PT/INR - Standing Order [facility] Work Phone: Start: 04-14-2015 End: 04-14-2015 PFM PFM [facility] Work Phone: Start: 04-14-2015 End: 04-14-2015 *CBC with Differential *CBC with Differential [facility] Work Phone: Start: 04-14-2015 End: 04-14-2015 Coagulation factor induced.INR assay in platelet poor plasma *PT/INR - Standing Order [facility] Work Phone: Start: 04-14-2015 End: 04-14-2015 Electrocardiogram, complete EKG (In office) [facility] Work Phone: Start: 04-14-2015 End: 04-14-2015 Follow Up Appt 6 months Follow Up Appt 6 months [facility] Work Phone: Start: 04-14-2015 End: 04-14-2015 PFM PFM [facility] Work Phone: Start: 10-12-2014 End: 05-03-2016 *Hepatic Function Panel *Hepatic Function Panel [facility] Work Phone: Start: 10-12-2014 End: 10-12-2014 Follow Up Appt 6 months Follow Up Appt 6 months [facility] Work Phone: Start: 10-12-2014 End: 05-03-2016 Lipid panel [AGGREGATE] *Lipid Profile CC PCP [facility] Work Phone: Start: 10-12-2014 End: 10-12-2014 MMM MMM [facility] Work Phone: Start: 10-12-2014 End: 05-03-2016 *Hepatic Function Panel *Hepatic Function Panel [facility] Work Phone: Start: 10-12-2014 End: 10-12-2014 Follow Up Appt 6 months Follow Up Appt 6 months [facility] Work Phone: Start: 10-12-2014 End: 05-03-2016 Lipid panel [AGGREGATE] *Lipid Profile CC PCP [facility] Work Phone: Start: 10-12-2014 End: 10-12-2014 MMM MMM [facility] Work Phone: Start: 02-23-2014 End: 02-23-2014 Follow Up Appt 6 months Follow Up Appt 6 months [facility] Work Phone: Start: 02-23-2014 [...] Phone: Start: 02-23-2014 End: 02-23-2014 PFM PFM [facility] Work Phone: Start: 08-20-2013 End: [...] Lipid panel [AGGREGATE] *Lipid Profile CC PCP [facility] Work Phone: Start: 08-20-2013 End: 08-20-2013 MMM MMM [facility] Work Phone: Start: 01-16-2013 End: 01-16-2013 Echocardiography Echocardiogram (complete) [facility] Work Phone: Start: 01-16-2013 End: 01-16-2013 Follow Up Appt 6 months Follow Up Appt 6 months [facility] Work Phone: Start: 01-16-2013 End: 08-20-2013 Follow Up Appt Other Follow Up Appt Other [facility] Work Phone: Start: 01-16-2013 End: 01-17-2013 INR Coag RelTime (PPP) *PT/INR [facility] Work Phone: Start: 01-16-2013 End: 01-16-2013 PFM PFM [facility] Work Phone: Start: 01-16-2013 End: 01-17-2013 Coagulation factor induced.INR assay in platelet poor plasma *PT/INR [facility] Work Phone: Start: 01-16-2013 End: 01-16-2013 Echocardiography Echocardiogram (complete) [facility] Work Phone: Start: 01-16-2013 End: 01-16-2013 Follow Up Appt 6 months Follow Up Appt 6 months [facility] Work Phone: Start: 01-16-2013 End: 08-20-2013 Follow Up Appt Other Follow Up Appt Other [facility] Work Phone: Start: 01-16-2013 End: 01-16-2013 PFM PFM [facility] Work Phone: Start: 11-25-2012 End: 02-23-2014 INR Coag RelTime (PPP) *PT/INR - Standing Order [facility] Work Phone: Start: 11-25-2012 End: 02-23-2014 Coagulation factor induced.INR assay in platelet poor plasma *PT/INR - Standing Order [facility] Work Phone: Start: 09-18-2012 End: 08-20-2013 *Hepatic Function Panel *Hepatic Function Panel [facility] Work Phone: Start: 09-18-2012 End: 08-20-2013 Lipid panel [AGGREGATE] *Lipid Profile [facility] Work Phone: Start: 09-18-2012 [...] 6 months Follow Up Appt 6 months [facility] Work Phone: Start: 04-04-2012 End: 06-10-2012 *Hepatic Function Panel *Hepatic Function Panel [facility] Work Phone: Start: 04-04-2012 End: 06-10-2012 Lipid panel [AGGREGATE] *Lipid Profile [facility] Work Phone: Start: 04-04-2012 End: 06-10-2012 *Hepatic Function Panel *Hepatic Function Panel [facility] Work Phone: Start: 04-04-2012 End: 06-10-2012 Lipid panel [AGGREGATE] *Lipid Profile [facility] Work Phone: Start: 02-26-2012 End: 06-06-2012 *Hepatic Function Panel *Hepatic Function Panel [facility] Work Phone: Start: 02-26-2012 End: 06-06-2012 *Hepatic Function Panel *Hepatic Function Panel [facility] Work Phone: Start: 12-11-2011 End: [...] w/least 12 lds w/i&r EKG (In office) [facility] Work Phone: Start: 12-11-2011 End: 12-11-2011 Follow Up Appt 6 months Follow Up Appt 6 months [facility] Work Phone: Start: 12-11-2011 End: 12-18-2011 Lipid panel [AGGREGATE] *Lipid Profile [facility] Work Phone: Start: 12-11-2011 End: 12-18-2011 Magnesium *Magnesium [facility] Work Phone: Start: 12-11-2011 End: 12-18-2011 Thyroid stimulating hormone (TSH) *TSH [facility] Work Phone: Start: 12-11-2011 End: 12-18-2011 Thyroxine (T4) *T4 (Total) [facility] Work Phone: Start: 12-11-2011 End: 12-18-2011 *BMP *BMP [facility] Work Phone: Start: 12-11-2011 End: 12-18-2011 *CBC with Differential *CBC with Differential [facility] Work Phone: Start: 12-11-2011 End: 12-18-2011 *Hepatic Function Panel *Hepatic Function Panel [facility] Work Phone: Start: 12-11-2011 End: 12-18-2011 Ct thorax w/dye CT Chest with Contrast [facility] Work Phone: Start: 12-11-2011 End: 12-11-2011 Electrocardiogram, complete EKG (In office) [facility] Work Phone: Start: 12-11-2011 End: 12-11-2011 Follow Up Appt 6 months Follow Up Appt 6 months [facility] Work Phone: Start: 12-11-2011 End: 12-18-2011 Lipid panel [AGGREGATE] *Lipid Profile [facility] Work Phone: Start: 12-11-2011 End: 12-18-2011 Magnesium *Magnesium [facility] Work Phone: Start: 12-11-2011 End: 12-18-2011 Thyroid stimulating hormone (TSH) *TSH [facility] Work Phone: Start: 12-11-2011 End: [...] 12-18-2011 *CBC with Differential *CBC with Differential [facility] Work Phone: Start: 06-12-2011 End: 12-18-2011 *Hepatic Function Panel *Hepatic Function Panel [facility] Work Phone: Start: 06-12-2011 End: 06-12-2011 Echocardiography Echocardiogram (complete) [facility] Work Phone: Start: 06-12-2011 End: 06-12-2011 Follow Up Appt 6 months Follow Up Appt 6 months [facility] Work Phone: Start: 06-12-2011 End: 12-18-2011 Lipid panel [AGGREGATE] *Lipid Profile [facility] Work Phone: Start: 11-24-2005 Screening for malignant neoplasm of colon COLORECTAL CANCER SCREENING DISCUSSION [facility] Start: 1995 Zoster vaccine hzv live for subcutaneous use ZOSTER (SHINGLES) VACCINE (1 of 2) [facility] Start: 1964 Third diphtheria, tetanus and acellular pertussis (DTaP) vaccination TDAP (ADULT) [facility] Start: 1945 Tetanus vaccination TETANUS [facility] End: 06-15-2024 BMP WITHOUT GLUCOSE BMP WITHOUT GLUCOSE Lab Routine Acute bacterial endocarditis Twice a Week for 6 Occurrences starting 06/15/2023 until 06/15/[address] [facility] Comment on above: Twice a Week for 6 Occurrences starting 06/15/2023 until 06/15/2024 CHEM 6 (LYTES, BUN CREA) CHEM 6 (LYTES, BUN CREA) Lab Routine Every Mon in the AM Lab until discontinued starting 06/18/2023, [address] [facility] Comment on above: Every Mon in the AM Lab until discontinu ed starting 06/18/2023, 1 completed End: 06-15-2024 Complete blood count with white cell differential, automated CBC, EDIF, PLATELET Lab Routine Acute bacterial endocarditis Once a week for 6 Occurrences starting 06/15/2023 until 06/15/[address] [facility] Comment on above: Once a week for 6 Occurrences starting 0 06/15/2023 until 06/15/2024 End: 06-15-2024 Hepatic function 2000 panel - Serum or Plasma HEPATIC FUNCTION PANEL Lab Routine Acute bacterial endocarditis Once a week for 6 Occurrences starting 06/15/2023 until 06/15/[address] [facility] Comment on above: Once a week for 6 Occurrences starting 0 06/15/2023 until 06/15/2024 LAB INSTRUCTIONS LAB INSTRUCTION S Lab Routine Acute bacterial endocarditis Ordered: 06/15/[address] [facility] Comment on above: Ordered: 06/15/2023 Magnesium [Mass/volu me] in Serum or Plasma MAGNESIUM Lab Routine UD PRN until discontinued starting 06/06/2023, [address] [facility] Comment on above: UD PRN until discontinued starting 06/06, 1 completed Magnesium [Mass/volu me] in Serum or Plasma MAGNESIUM Lab Routine Every Mon in the AM Lab until discontinued starting 06/18/2023, [address] [facility] Comment on above: Every Mon in the AM Lab until discontinu ed starting 06/18/2023, 1 completed Patient Education [facility] Work Phone: Potassium [Moles/vol ume] in Serum or Plasma POTASSIUM Lab Routine UD PRN until discontinued starting 06/06/2023, [address] [facility] Comment on above: UD PRN until discontinued starting 06/06, 1 completed PROTIME-INR PROTIME-INR Lab Routine Every morning Lab until discontinued starting 06/10/2023, [address] [facility] Comment on above: Every morning Lab until discontinued sta rting 06/10/2023, 9 completed Standard ECG ECG ECG STAT Needed until discontinued starting 06/06/2023, [address] [facility] Comment on above: Needed until discontinued starting , 1 completed Standard ECG ECG ECG Routine Daily until discontinued starting 06/11/[address] [facility] Comment on above: Daily until discontinued starting 2023 Payers Date Payer Category Payer Self-pay 2023 Unknown AARP AARP xxxxxx [id number] 2023-Present [address] [place] [address] 1.2.840.755748.1.13.172.2.7.3.6 [id number] 2022 Unknown [id number] 2021 Medicare [id number] 2020 Unknown [id number] 2010 Medicare MEDICARE MEDICAR E A AND B [id number] 2010-Present [address] [place] [address] 1.2.840.877387.1.13.172.2.7.3.6 95729.315 2010 Medicare [id number] 1945 Unknown [id number] 2.16.840.1.754623.3.579.2.732 1945 Unknown [id number] 2.16.840.1.744897.3.579.2.732 1945 Unknown [id number] 2.16.840.1.735136.3.579.2.732 1945 Unknown [id number] 2.16.840.1.855080.3.579.2.732 1945 Unknown [id number] 2.16.840.1.664409.3.579.2.732 1945 Unknown [id number] 2.16.840.1.273432.3.579.2.732 1945 Unknown [id number] 2.16.840.1.283628.3.579.2.732 1945 Unknown [id number] 2.16.840.1.567745.3.579.2.732 1945 Unknown [id number] 2.16.840.1.369479.3.579.2.732 1945 Unknown [id number] 2.16.840.1.819243.3.579.2.732 1945 Unknown [id number] 2.16.840.1.431008.3.579.2.732 1945 Unknown [id number] 2.16.840.1.159641.3.579.2.732 1945 Unknown [id number] 2.16.840.1.135337.3.579.2.732 1945 Unknown [id number] 2.16.840.1.372852.3.579.2.732 1945 Unknown [id number] 2.16.840.1.994490.3.579.2.732 1945 Unknown [id number] 2.16.840.1.620185.3.579.2.732 1945 Unknown [id number] 2.16.840.1.597340.3.579.2.594 1945 Unknown [id number] 2.16.840.1.985714.3.579.2.594 1945 Unknown [id number] 2.16.840.1.693050.3.579.2.594 1945 Unknown [id number] 2.16.840.1.074944.3.579.2.594 Unknown [id number] 2.16.840.1.081143.3.579.2.462 Unknown [id number] 2.16.840.1.014373.3.579.2.462 Unknown [id number] 2.16.840.1.830619.3.579.2.462 Unknown [id number] 2.16.840.1.902580.3.579.2.462 Unknown [id number] 2.16.840.1.668548.3.579.2.462 Unknown [id number] 2.16.840.1.586992.3.579.2.462 Unknown [id number] 2.16.840.1.029596.3.579.2.462 Unknown [id number] 2.16.840.1.194395.3.579.2.462 Unknown [id number] 2.16840.1.070538.3.579.2.462 Unknown [id number] 2.16.840.1.601322.3.579.2.462 Unknown [id number] 2.16.840.1.246104.3.579.2.462 Unknown [id number] 2.16.840.1.732950.3.579.2.462 Unknown [id number] 2.16.840.1.931034.3.579.2.462 Unknown [id number] 2.16.840.1.763015.3.579.2.462 Unknown [id number] 2.16.840.1.779898.3.579.2.462 Unknown [id number] 2.16.840.1.586693.3.579.2.462 Unknown [id number] 2.16.840.1.008929.3.579.2.462 Unknown [id number] 2.16.840.1.272153.3.579.2.462 Unknown [id number] 2.16.840.1.310373.3.579.2.462 Unknown [id number] 2.16840.1.440518.3.579.2.462 Unknown [id number] 2.16840.1.309028.3.579.2.462 Unknown [id number] 2.16.840.1.848408.3.579.2.462 Unknown [id number] 2.16840.1.318132.3.579.2.462 Unknown [id number] 2.16840.1.916061.3.579.2.462 Unknown [id number] 2.840.1.333090.3.579.2.462 Unknown [id number] 2.840.1.252763.3.579.2.462 Unknown [id number] 2.840.1.716089.3.579.2.462 Unknown [id number] 2.840.1.124532.3.579.2.462 Unknown [id number] 2.840.1.772307.3.579.2.462 Unknown [id number] 2.840.1.859302.3.579.2.462 Unknown [id number] 2.840.1.558535.3.579.2.462 Unknown [id number] 2.840.1.448906.3.579.2.462 Unknown [id number] 2.840.1.777416.3.579.2.462 Unknown [id number] 2.840.1.725727.3.579.2.462 Unknown [id number] 2.840.1.557192.3.579.2.462 Unknown [id number] 2.16840.1.055822.3.579.2.462 Unknown [id number] 2.16840.1.015159.3.579.2.462 Unknown [id number] 2.840.1.089298.3.579.2.462 Social History Date Type Detail Facility Start: 06-07-2023 Tobacco smoking stat us NYIS Never smoked tobacco [facility] Start: 06-07-2023 Tobacco use and exposure Smoke less tobacco non-user [facility] Start: 06-07-2023 End: 08-10-2023 Alcohol intake Lifetime non-drinker (finding) [facility] Start: 06-06-2023 End: 08-10-2023 History of Social function [facility] Start: 06-06-2023 End: 08-10-2023 [facility] Utilities [facility] Has the [employer], oil, or water [email or web address] threatened to shut off services in your home in past 12Mo No [facility] (I/We) worried [facility] (my/our) food would run out before (I/we) got money to buy more. Never true [facility] In the past 12 month s, has lack of transportation kept you from medical appointments or from getting medications? No [facility] Start: 1945 Sex Assigned At Not on file O [facility] NEGATED: Highlighted rowStart: SANDRALeana History of tobacco use Passive smoker [facility] Clinical Notes 03-19-2021 to 08-27-2024 Dean Veloz MD - 08/10/2023 11:00 AM Dustin Veloz MD - 08/10/2023 11:00 AM Rowdy Covington MD - 06/19/2023 1:13 PM Rowdy Covington MD - 06/19/2023 1:13 PM ESTDischarge Instructions Note Date & Type Note Facility 08-27-2024 Note [facility] 01-30-2024 Note [facility] 08-10-2023 History and physical note FER HISTORY [...] 123.4 (H) 06/18/2023 PTT 48 (H) 12/24/2004 [facility] 08-10-2023 History and physical note FER HISTORY [...] (H) 12/24/2004 documented in this encounter [facility] 06-19-2023 Hospital course Narrative Hospital Medicine Discharge Summary Patient Name Markus Nava Age (Date of ) 78 y.o. (1945) Admit Date 06/06/2023 Discharge Date 06/19/2023 Inpatient Days 13 Primary Diagnoses MSSA Endocarditis of the aortic valve Action Items Follow-up with local hose suspender cutter regarding basal cell of neck Finish prescribed antibiotic course Dear Doctors, I recently had the opportunity to care for Markus Nava during his recent hospital stay at [facility]. As you may know, Mr. Nava is [...] OS but patient preferred to see a hose suspender cutter closer to home. Upon discharge the patient's code was Full Code Please see the remainder of this document for relevant data from this admission as well as the patient's discharge instructions and follow-up appointments.. An electronic copy of the patient's records can be obtained via [facility] at [email or web address] It has been my pleasure participating in [...] Department Center 07/26/2023 11:00 AM [facility] 07/30/2023 10:00 AM Titi Sabillon MD (John) [facility] 08/02/2023 10:00 AM [place] [facility] [place] [address] [address] Michael Maldonado MD [address] [facility] Phys[facility] [address] [place] [address] Follow up Please call to schedule hospital [...] Your Medications These medications were sent to [facility] [address], [address], [facility] [address] Hours: Sunday through Sunday 8am to 9pm, Sunday and Sunday 9am to 6pm predniSONE 5 MG TABS Tamsulosin HCl 0.4 MG CAPS You can get these medications from any pharmacy Bring a paper prescription for each of these medications ceFAZolin injection Follow-up: [address] [place] [id number] Michael Maldonado MD [address] [facility] [address] [place] [address] Follow up Please call to schedule hospital follow-up/INR check Upcoming Appointments (up to five)-Some appointments for Medical Center outpatient clinics or diagnostic testing locations are not displayed below Provider Department Dept Phone 07/26/2023 11:00 AM FER TESTING, [facility] Cardiovascular Imaging Lab [facility] Arrive at: Arrive to [facility] Registration Desk [phone] 07/30/2023 10:00 AM Titi Lopez (John)[facility] I[facility] Machine Center [facility] Arrive at: Arrive to [facility] Registration Desk [phone] 08/02/2023 10:00 AM Asha Bundy Infectious Diseases Care [facility] Outpatient Care [phone] documented in this encounter [facility] 06-19-2023 Hospital course Narrative Hospital Medicine Discharge Summary Patient Name Markus Nava Age (Date of ) 78 y.o. (1945) Admit Date 06/06/2023 Discharge Date 06/19/2023 Inpatient Days 13 Primary Diagnoses MSSA Endocarditis of the aortic valve Action Items Follow-up with local hose suspender cutter regarding basal cell of neck Finish prescribed antibiotic course Dear Doctors, I recently had the opportunity to care for Markus Nava during his recent hospital stay at [facility]. As you may know, Mr. Nava is [...] OS but patient preferred to see a hose suspender cutter closer to home. Upon discharge the patient's code was Full Code Please see the remainder of this document for relevant data from this admission as well as the patient's discharge instructions and follow-up appointments.. An electronic copy of the patient's records can be obtained via [facility] at [email or web address] It has been my pleasure participating in [...] Department Center 07/26/2023 11:00 AM FER TESTING, [facility] RDSECH MARCI 07/30/2023 10:00 AM Titi Sabillon MD (John) [facility] 08/02/2023 10:00 AM Asha Bundy MD [facility], [place] [address] Michael Maldonado MD [address] [facility] [address] [place] [phone] Follow up Please call to schedule hospital [...] Your Medications These medications were sent to [facility] [address], [address], [facility] [address] Hours: Sunday through Sunday 8am to 9pm, Sunday and Sunday 9am to 6pm predniSONE 5 MG TABS Tamsulosin HCl 0.4 MG CAPS You can get these medications from any pharmacy Bring a paper prescription for each of these medications ceFAZolin injection Follow-up: [facility] [employer], [address] [address] Michael Maldonado MD [address] [facility] Phys[facility] [place] [address] Follow up Please call to schedule hospital follow-up/INR check Upcoming Appointments (up to five)-Some appointments for Medical Center outpatient clinics or diagnostic testing locations are not displayed below Provider Department Dept Phone 07/26/2023 11:00 AM FER TESTING, [facility] Cardiovascular Imaging Lab [facility] Arrive at: Arrive to [facility] Registration Desk [phone] 07/30/2023 10:00 AM Titi Duarte (John[facility] Icer Machine Center [facility] Arrive at: Arrive to [facility] Registration Desk [phone] 08/02/2023 10:00 AM Asha Bundy Infectious Diseases Care [facility] [phone] [facility] Miscellaneous Notes After Visit Summary [...] [facility] [place] [place] [address] Fax: [phone] Addendum at 4925: Patient will also use [facility] for infusion pharmacy: [employer], an [facility] - [facility] [address] [place] [address] NATAN Mills RN Problem: Patient Care Overview [...] Conf Outcome: Ongoing documented in this encounter [facility] 06-19-2023 Miscellaneous Notes After Visit Summary [...] agency provide SN for infusion services: [facility], [address] [address] Fax: [phone] Addendum at 1529: Patient will also use [facility] for infusion pharmacy: [facility], an [facility] - [facility] [address] [place] [address] NATAN Mills RN Problem: Patient Care Overview [...] Conf Outcome: Ongoing documented in this encounter [facility] 06-19-2023 Nurse Note After Visit Summary [...] No further issues at time of discharge. [facility] 06-19-2023 History of Present illness Narrative Final Discharge Planning and Transportation Final Discharge Planning Discharge Disposition: Home with Infusion Services at Discharge: Nursing Home Selected Continued Care - Admitted Since 06/06/2023 Dialysis/Infusion Coordination complete. Service Provider Selected Services Address Phone Fax Patient Preferred [facility] IV Therapy [address] [place] [address] [phone] -- Current Capacity last updated by Dominique Solorio RN on 03/28/2023 1518 Home IV ATBs Home Medical Care Coordination complete. 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 CM had conversation with patient/caregiver related to specialty care follow-up. Barriers identified: None Outpatient CM was not contacted related to barriers Sandra Lopez RN, BSN Clinical Lollypop Machine Operator Home Health Referral Educated Patient on Home Care and services available. Patient agreeable to Nursing Home services with [facility] and [facility] for infusion pharmacy. 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 Emergency Contacts Extended Emergency Contact Information Primary Emergency Contact: thai Lin Relation: Significant Other Secondary Emergency Contact: jackeline landon Relation: Child Ordering Physician: Wiley Covington MD Following Physician:Louie Burns, DO Agreeable to Follow: Yes Date/Time of Call: 06/08/23 at 1630 Spoke with: Dunai Primary Diagnosis & Reason for Services: Acute bacterial endocarditis [I33.0] - Primary [employer] (Labs, Wounds, Infusions etc.): [employer]able Caregiver: Name:Thai Lin Relation to patient: Contact #:[phone] Is teachable available for SOC visit? Yes IV/TPN/Tube Feed: Infusion Company:[facility] Infectious Disease Physician:Dr. Kelvin Soliz Infusion/TF Orders:Cefazolin [...] Site: PICC Send Results To: fax to [phone], attention (ID Attending): Dr. Kelvin Soliz (ID Fellow): [facility] Report/ Additional Comments: Markus Nava is [...] Dede with [facility] at [phone] to let her know that patient is discharging today. DC documents uploaded to [employer] and faxed to [phone]. Bianca Chung, P[facility] RN Images from the original note were not included. [facility] Note: Bedside Delivery Documentation The following prescription(s) were tubed to the patient's bedside. Dolores Zaman Specialty ([place]) [phone] [facility] [phone] [facility] Bedside Delivery [phone] Psychiatric [phone] Psychiatric Bedside Delivery [phone] [place] [phone] [facility] Bedside Delivery [phone] [place] [phone] [place] [phone] Markus is to get final dose of gentamicin tomorrow and then will be ready for discharge tomorrow. I updated [facility] and [facility] (via Santana) of this plan. [facility] has the atb script; I uploaded PICC information. Gabriela Harding RN Clinical Lollypop Machine Operator Images from the original note were not included. [facility] Note: Non-Verbal Med Rec [facility] received the following discharge prescription(s): Total cost is $15.67. I have reviewed the Discharge Rx Reconciliation Report. The discharge prescription(s) will be delivered to the patient on 06/18/2023. Quentin Rodriguez [facility],PharmD Specialty ([place]) [phone] [facility] [phone] [place] Bedside Delivery [phone] Psychiatric [phone] Psychiatric Bedside Delivery [phone] [place] [phone] [facility] Bedside Delivery [phone] [place] [phone] [place] [phone] Electronically signed by Quentin Rodriguez [facility],PharmD at 06/18/2023 11:14 AM EST [facility] Medicine Progress Note Patient: Markus Nava, : [...] 123.4/26.5/2.5 (06/18 608) Signed, Wiley Covington MD [facility] Medicine Progress Note Patient: Markus Nava, : [...] -please set him up with his outpatient deputy attorney general in [place] to be seen within 1 month of [...] to PO amio. -currently in rate-controlled AF -[id number] is 3, continue systemic AC with warfarin [...] early evening heparin 14 Units/kg/hr (06/15/23 1326) [id number] Score for Atrial Fibrillation Stroke Risk Age in Years: 75+ Sex: Male CHF History: Yes Hypertension History: No Stroke/TIA/Thromboembolism History: No Vascular Disease History: No Diabetes History: No [id number]-HVFu Score: 3 Complexity. Thank you for this consult. Please call with questions. We will sign off at this time. [facility] Consult Service Phone: [phone] [facility] Medicine Progress Note Patient: Markus Nava, : [...] 82.6/15.5/1.2 (06/15 314) Signed, Wiley Covington MD [facility] Medicine Progress Note Patient: Markus Nava, : [...] Status--Accepted/Reserved [facility] [place], [place] [address] [place] [address] CM updated in Rounds. Patient discharge anticipated early next week- INR hold. Patient has home health/home infusion arranged by [facility]. Home Health -- only accepting agency has nursing available for SOC early next week (no weekend availability). CM contacted patient's Cosmetics And Toiletries Salesperson Office-Dr Maldonado with [facility] to verify ability to continue managing coumadin/INR when discharged. CM will continue follow up and assist with discharge planning. Radha KEN Clinical Lollypop Machine Operator [facility] Images from the original [...] -please set him up with his outpatient deputy attorney general in [place] to be seen within 1 month of [...] to PO amio. -currently in rate-controlled AF -QEL2NL7-WERz0 is 3, continue systemic AC with warfarin [...] early evening heparin 14 Units/kg/hr (06/14/23 1314) [id number] Score for Atrial Fibrillation Stroke Risk Age in Years: 75+ Sex: Male CHF History: Yes Hypertension History: No Stroke/TIA/Thromboembolism History: No Vascular Disease History: No Diabetes History: No OEB1MK6-OUJc Score: 3 Complexity. Thank you for this consult. Please call with questions. We will continue to follow along. [facility] Consult Service Phone: [phone] Department of Pharmacy Pharmacokinetics Progress Note Patient: Markus [facility]ava [facility]: Based upon [...] with prosthetic/mechanical AV endocarditis FER (06/05/2023) at [facility] with 1.1cm x 0.7cm mobile vegetation on subaortic valvular lesion without surgical candidacy upon [facility]. 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 Kelvin Soliz (ID [...] Clinic (Please ensure patient is enrolled in [facility] prior to discharge) If the patient is being discharged to a [facility] ([facility]), we will defer ID Care to the Infectious Disease Providers at the [facility] facility. Please instruct the facility that if [...] on 08/02/2023 at 10:00AM. Asha Bundy MD [facility] Medicine Progress Note Patient: Markus Nava, : [...] pulm edema S/w W[facility] who informed me that if [...] a 78 y.o. 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 Blood cultures initially positive on 06/02/2023. Started on intermittent Cefazolin with Gentamicin prior to [facility]. 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 For [...] as noted above. Kelvin Soliz MD, PhD Finance Assistantstud setter Division of Infectious Diseases Images from the [...] Please set him up with his outpatient deputy attorney general in [place] to be seen within 1 month of [...] per BP tolerance for rate control. - [id number] is 3, continue systemic AC with warfarin [...] Intake/Output Summary (Last 24 hours) at 06/13/2023 0758 Last data filed at 06/13/2023 0440 Gross [...] Daily early evening heparin 15 Units/kg/hr (06/12/232106) IOA1SE6-POQv Score for Atrial Fibrillation Stroke Risk Age in Years: 75+ Sex: Male CHF History: Yes Hypertension History: No Stroke/TIA/Thromboembolism History: No Vascular Disease History: No Diabetes History: No EHF8LG5-WVWk Score: 3 Complexity. Thank you for this consult. Please call with questions. We will continue to follow along. [facility]on Cardiology Consult Service Phone: [phone] [facility] Medicine Progress Note Patient: Markus Nava, : [...] Please set him up with his outpatient deputy attorney general in [place] to be seen within 1 month of [...] per BP tolerance for rate control. - USH2HJ2-HBFi1 is 3, continue systemic AC with warfarin [...] early evening heparin 12 Units/kg/hr (06/12/23 0633) VNR7XX2-TUVe Score for Atrial Fibrillation Stroke Risk Age in Years: 75+ Sex: Male CHF History: Yes Hypertension History: No Stroke/TIA/Thromboembolism History: No Vascular Disease History: No Diabetes History: No AKY7JB9-TJRj Score: 3 Thank you for this consult. Please call with questions. We will continue to follow along. [facility] Cardiology Consult Service Phone: [phone] Department of Pharmacy Antimicrobial Stewardship Documentation Note [...] the following recommendations are based on [facility]'s Diagnosis and Management of Staphylococcus aureus Bacteremia [...] further questions. Name: Haley Mahmood RPH Phone: [phone] Date/Time: 06/12/2023 7:24 AM Discharge Plan Expected Discharge Date: 06/13/2023 Referred Level of Care: Home Health/Home Infusion Barriers: Cultures, Final ID recs/Antibiotic plan, PICC Current Referrals and Status [facility] assisting with Home Health/Home Infusion referrals. CM will continue following for discharge planning. Radha KEN Clinical Lollypop Machine Operator [facility] Medicine Progress Note Patient: Markus Nava, : 1945, Impression / Plan Mrakus Nava is a 78 y.o. male with [...] Please set him up with his outpatient deputy attorney general in [place] to be seen within 1 month of [...] rate control with BB and amiodarone - [id number] is 3, continue systemic AC with warfarin [...] early evening heparin 11 Units/kg/hr (06/11/23 0800) [id number] Score for Atrial Fibrillation Stroke Risk Age in Years: 75+ Sex: Male CHF History: Yes Hypertension History: No Stroke/TIA/Thromboembolism History: No Vascular Disease History: No Diabetes History: No GXW5RZ1-WKSr Score: 3 Thank you for this consult. Please call with questions. We will continue to follow along. Delfina Saldaña APRN-MANAGER NEW PRODUCT Cardiology Consult Service Phone: [phone] Images from the original note were not included. INFECTIOUS DISEASE FOLLOW-UP NOTE IDENTIFYING INFORMATION PATIENT: Markus Nava REFERRING PROVIDER: Heike Milan MD ADMIT DATE: 06/06/2023 TODAY'S DATE: 06/11/2023 REASON FOR CONSULT 78y M with hx of aortic valve replacement now with MSSA bacteremia and AV endocarditis ASSESSMENT Markus Nava is a 78 y.o. 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 Blood cultures initially positive on 06/02/2023. Started on intermittent Cefazolin with Gentamicin prior to transfer to [facility]. 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 For now, continue IV cefazolin by continuous infusion -- anticipate 6-8 week course from durable blood culture clearance (current day 1 = 06/08/23) with likely subsequent chronic oral suppression. Continue gentamicin for synergy (important to monitor renal function and drug levels; appreciate pharmacy assistance and monitoring while on this regimen) -- plan for 2-week course. Kelvin Soliz MD, PhD Finance Assistantstud setter Division of Infectious Diseases [facility] Medicine Progress Note Patient: Markus Nava, : [...] further questions. Name: Kelvin Pitts RPH Phone: [phone] Date/Time: 06/10/2023 3:10 PM Images from the [...] Please set him up with his outpatient deputy attorney general in [place] to be seen within 1 month of [...] rate control with BB and amiodarone - [id number] is 3, continue systemic AC with warfarin [...] Daily early evening heparin 14 Units/kg/hr (06/10/23 0747) [id number] Score for Atrial Fibrillation Stroke Risk Age in Years: 75+ Sex: Male CHF History: No Hypertension History: Yes Stroke/TIA/Thromboembolism History: No Vascular Disease History: No Diabetes History: No [id number]-ROTb Score: 3 Thank you for this consult. Please call with questions. We will continue to follow along. Plan of care developed in collaboration with attending deputy attorney general Dr. Potter. CHEO Katz Cardiology Consult Service Phone: [phone] [facility] Medicine Progress Note Patient: Markus Nava, : [...] Please set him up with his outpatient deputy attorney general in [place] to be seen within 1 month of [...] rate control with BB and amiodarone - [id number] is 3, home warfarin on hold currently [...] Oral Daily heparin 15 Units/kg/hr (06/09/23 0647) [id number] Score for Atrial Fibrillation Stroke Risk Age in Years: 75+ Sex: Male CHF History: No Hypertension History: Yes Stroke/TIA/Thromboembolism History: No Vascular Disease History: No Diabetes History: No [id number] Score: 3 Thank you for this consult. Please call with questions. We will continue to follow along. Plan of care developed in collaboration with attending deputy attorney general Dr. Potter. CHEO Katz Cardiology Consult Service Phone: [phone] BRIEF NUTRITION NOTE: Current Diet Orders Procedures DIET HEART HEALTHY - 4 GM SODIUM Standing Status: Standing Number of Occurrences: 1 Pt with no significant nutrition changes over the past week. Tolerating diet with adequate po intake. No notable wt changes. wildlife technician will continue to follow/assist prn. Basil Galindo DTR Pager: [phone] [facility] Medicine Progress Note Patient: Markus Nava, : [...] appropriate follow-up. Please contact our offices at [phone] to schedule. This patient was discussed with Dr. Titi Sabillon MD. We will sign off. Please call with any additional questions or concerns. Thank you. CHEO Perdue OS Cardiothoracic Surgery Inpatient Nurse Practitioner Phone #[phone] [facility] Coordination Note Patient received in handoff from sample case porter for potential homecare services. Referrals place in [place]in, awaiting responses. Will continue to follow with sample case porter for plan of care. [facility] Home Health [...] assist with discharge planning. Radha KEN Clinical Lollypop Machine Operator [facility] Department of Pharmacy Pharmacokinetics [...] further questions. 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 IADL History IADLs: independent Primary Language: Scottish Objective/Observation: Vitals/Vitals Responses to Treatment: Vitals HR [...] Assessment: Transfer Assessment: Sit to Stand Transfer [place] Level: Sit->Stand: modified independence Skilled Rationale: Verbal cues Functional Mobility: Functional Mobility [place] Level: Functional Mobility/Gait: supervision Functional Mobility Skilled Rationale: Verbal cues CURRENT [facility] Daily Activity Inpatient Short Form Putting [...] of activity achieved on this date Gait [place] Level: Gait: contact guard assist Ambulation Distance (Feet): (430ft) no AD, no LOB Mobility equipment available at home: none used ADL equipment available at home: none Equipment needed for discharge: none Current therapy frequency recommendation in acute: Therapy Frequency: no therapy warranted Activity Recommendations for outside of rehab session: Ambulate in hallways with RN or HARDWOOD FLOORING SPECIALIST x3 daily Precautions and Weightbearing Status: Existing [...] Equipment Available: none 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 Previous Level of Function Prior level ADL Overview: Independent with all ADLs Dominant Hand: Ambidextrous, Left Bed Mobility/Transfers: independent Ambulation Skills: independent Assistive Device: none used Level of Ambulation: community 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 Objective/Observation: Vitals/Vitals Responses to Treatment: Vitals monitored [...] width Transfer Assessment: Sit to Stand Transfer [place] Level: Sit->Stand: supervision Skilled Rationale: Hand placement, Verbal cues, Cues for increased safety, Facilitate anterior shift Skilled Intervention/Details: Sit->Stand: cues for STS mechanics and increased safety Stand to Sit Transfer [place] Level: Stand->Sit: supervision Skilled Rationale: Hand placement, Verbal cues, Technique of activity Gait/Functional Mobility: Gait Assessment [place] Level: Gait: contact guard assist Ambulation Distance (Feet): (430ft) Gait Deviations Identified: decreased david, decreased step length Gait Skilled Rationale: verbal, upright posture Skilled Intervention/Details - Gait: Cues for equal step length Stairs: Stairs Assessment [place] Level: Stair Negotiation: not tested Outcome Score(s): [...] Household ambulation Limited Community ambulation Community ambulation [facility] safely 0 - 0.4 meter/sec 0.4 - 0.8 meter/sec 0.8 - 1.3 meter/sec >1.4 meter/sec Dylan Marc, Quinn Veloz (2015) CURRENT [facility] Basic Mobility Inpatient Short Form Turning over in bed: 4 - No Assistance Sitting/standing from chair: 4 - No Assistance Moving from lying on back to sittin - No Assistance Moving to and from bed to chair: 3 - A Little Assistance Walk in hospital room: 3 - A Little Assistance Climbing 3-5 steps with a railin - A Little Assistance CURRENT -[facility] Mobility Raw Score: 21 CURRENT [facility] Mobility Functional Limitation/Modifier: 28.97% Currently Impaired [...] PO amio. Currently in rate-controlled AF. - [id number] is 3, on heparin gtt - Recommend [...] Oral Daily heparin 14 Units/kg/hr (06/08/23 0905) [id number] Score for Atrial Fibrillation Stroke Risk Age in Years: 75+ Sex: Male CHF History: No Hypertension History: Yes Stroke/TIA/Thromboembolism History: No Vascular Disease History: No Diabetes History: No HEY4LZ4-GQYr Score: 3 Thank you for this consult. Please call with questions. We will continue to follow along. CHEO Mtz Cardiology Consult Service Phone: [phone] Images from the original note were not included. INFECTIOUS DISEASE FOLLOW-UP NOTE IDENTIFYING INFORMATION PATIENT: Markus Nava REFERRING PROVIDER: Heike Milan MD ADMIT DATE: 06/06/2023 TODAY'S DATE: 06/08/2023 REASON FOR CONSULT 78y M with hx of aortic valve replacement now with MSSA bacteremia and AV endocarditis ASSESSMENT Markus Nava is a 78 y.o. 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 Blood cultures initially positive on 06/02/2023. Started on intermittent Cefazolin with Gentamicin prior to transfer to [facility] on 06/06/2023. 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) complicated [...] 06/08/2023 Microbiologic Data (personally reviewed): Blood (06/02/2023, [facility]): MSSA Blood (06/06/2023): MSSA (Line & Peripheral) [...] MD, PhD Division of Infectious Diseases [facility] Hospital Medicine Progress Note Patient: Markus [...] No Spouse: No (Thai Lin Significant Other [phone]) Adult Child(alberto), List All Adult Children: Yes Name and Contact information: Dominique Landon [phone] (patient is not and has one adult [...] Yes Provider or Clinic that manages Anticoagulation?: [facility]/[employer] Salesperson manages No Pharmacies Listed Grain Picker Does the patient or distribution sales representative express financial concerns? : No Employed?: Retired Coping/Stress Concerns about patient s coping and stress?: No Concerns about patient s caregiver s coping and stress?: Unable to Assess Values and Beliefs Cultural or advent practices that may impact discharge planning and/or medical care?: No Initial Discharge Planning Anticipated discharge disposition: Home with Infusion Transportation Available for Discharge: Private Vehicle, Family or Friend Anticipated DME: none Anticipated Services at Discharge: Outpatient follow up, Nursing Home Patient Assessment Completed: Initial Expected Discharge Date: 06/12/2023 Discharge Planning Summary CM met with patient to complete initial assessment Anticipate discharge home with outpatient follow up vs home with home infusion and outpatient follow up Case Management Plan 1.Role of Clinical Lollypop Machine Operator [facility] 2.PCP/Specialist/pharmacy information updated as needed 3. Patient demographic/address/emergency contact information verified 4.Clinical Lollypop Machine Operator will continue to follow with medical team to coordinate discharge planning. Radha KEN Clinical Lollypop Machine Operator [facility] Department of Pharmacy Admission [...] hallucinations Warfarin - Patient reports followed by [facility]. Patient has 1 mg and 5 mg tablets at home. Current patient reported directions are: Take 6.5 mg daily on Sun, Mon, , , Sun, and Sat. Take 8 mg on . Please feel free to contact me with any further questions. Name: Binu Chauhan Phone #: [phone] Date/Time: 06/07/2023 10:07 AM Time Spent: 25 minutes Associated attestation - Judson Parsons RPH - 06/07/2023 1:16 PM EST Department of Pharmacy Admission Medication Reconciliation Note Patient: Markus Nava Room/Bed: 7032/A I have reviewed the home medication list with the Supervisor Microbiology Technologists. The home medication list status is: complete. A call to the pharmacy was not needed because the information compiled from listed sources corroborates the patient/caregiver interview. All changes to the home medication list have been updated in [facility]. 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 Name: Judson Parsons [facility] Phone #: [phone] Date/Time: 06/07/2023 1:16 PM Occupational Therapy Attempt [...] 0 minutes documented in this encounter [facility] 06-19-2023 History of Present illness Narrative Final Discharge Planning and Transportation Final Discharge Planning Discharge Disposition: Home with Infusion Services at Discharge: Nursing Home Selected Continued Care - Admitted Since 06/06/2023 Dialysis/Infusion Coordination complete. Service Provider Selected Services Address Phone Fax Patient Preferred [facility] Infusion and IV Therapy [address] [place] [address] [phone] -- Current Capacity last updated by Dominique Solorio RN on 03/28/2023 1518 Home IV ATBs Home Medical Care Coordination complete. Service Provider Selected Services Address Phone Fax Patient Preferred [email or web address] Home Nursing [address] [address] [phone] -- Community Agency Name(s) For Handoff: [facility] Name For Handoff: hadoop engineer Phone For Handoff: Fax For Handoff: Fax: [phone] Community Agency Name For Handoff: [employer], [facility] Phone For Handoff: Fax For Handoff: Plan Plan: pt to dc home with SN and infusion services in place Patient/Family In Agreement With Plan: yes Transportation Family to transport the patient. CM had conversation with patient/caregiver related to specialty care follow-up. Barriers identified: None Outpatient CM was not contacted related to barriers Sandra Lopez RN, BSN Clinical Lollypop Machine Operator Home Health Referral Educated Patient on Home Care and services available. Patient agreeable to Nursing Home services with [facility] and [facility] for infusion pharmacy. Current Home DME: None Patient Demographics Name: Markus Nava Patient Demographics [address] [address] PCP Louie Burns Language Scottish Supervisor Garment Manufacturing Needed No (home) Cell Phone No relevant [...] Caregiver: Name:Thai Lin Relation to patient: Contact #:[phone] Is teachable available for SOC visit? Yes IV/TPN/Tube Feed: Infusion Company:[facility] Infectious Disease Physician:Dr. Kelvin Soliz Infusion/TF Orders:Cefazolin [...] Site: PICC Send Results To: fax to [phone], attention (ID Attending): Dr. Kelvin Soliz (ID [...] called Dede with [facility] at [phone] to let her know that patient is discharging today. DC documents uploaded to [employer] and faxed to [phone]. NATAN Mills RN Images from the original note were not included. [facility] ([facility]) Note: Bedside Delivery Documentation The following prescription(s) were tubed to the patient's bedside. Dolores Zaman Specialty ([place]) [phone] [facility] [phone] [facility] Bedside Delivery [phone] Psychiatric [phone] Psychiatric Bedside Delivery [phone] [facility] [phone] [facility] Bedside Delivery [phone] [place] [phone] [place] [phone] Markus is to get final dose of gentamicin tomorrow and then will be ready for discharge tomorrow. I updated [facility] and [facility] (via Santana) of this plan. [facility] has the atb script; I uploaded PICC information. Gabriela Harding RN Clinical Lollypop Machine Operator Images from the original note were not included. [facility] Note: Non-Verbal Med Rec [facility] received the following discharge prescription(s): Total cost is $15.67. I have reviewed the Discharge Rx Reconciliation Report. The discharge prescription(s) will be delivered to the patient on 06/18/2023. Quentin Rodriguez RPh,PharmD Specialty ([place]) [phone] [facility] [phone] [facility] Bedside Delivery [phone] Psychiatric [phone] Psychiatric Bedside Delivery [phone] [facility] [phone] [facility] Bedside Delivery [phone] [place] [phone] [place] [phone] Hospital Medicine Progress Note Patient: Markus Nava, [...] 123.4/26.5/2.5 (06/18 608) Signed, Wiley Covington MD [facility] Medicine Progress Note Patient: Markus Nava, : 1945, Impression / Plan Maruks Nava is a 78 y.o. male with [...] We spent time talking about his wildlife [employer] hobby. Objective Temp: [97.6 F (36.4 C)-98.5 [...] 91.6/20.0/1.7 (06/17 327) Signed, Wiley Covington MD [facility] Medicine Progress Note Patient: Markus Nava, : [...] -please set him up with his outpatient deputy attorney general in [place] to be seen within 1 month of [...] to PO amio. -currently in rate-controlled AF -[id number]-HJJc1 is 3, continue systemic AC with warfarin [...] early evening heparin 14 Units/kg/hr (06/15/23 1326) [id number] Score for Atrial Fibrillation Stroke Risk Age in Years: 75+ Sex: Male CHF History: Yes Hypertension History: No Stroke/TIA/Thromboembolism History: No Vascular Disease History: No Diabetes History: No [id number]-EXLn Score: 3 Complexity. Thank you for this consult. Please call with questions. We will sign off at this time. CHEO Miller Cardiology Consult Service Phone: [phone] [facility] Medicine Progress Note Patient: Markus Nava, : [...] and Status--Accepted/Reserved [facility] [address] [address] [place] [address] CM updated in Rounds. Patient discharge anticipated early next week- INR hold. Patient has home health/home infusion arranged by [facility]. Home Health -- only accepting agency has nursing available for SOC early next week (no weekend availability). CM contacted patient's Cosmetics And Toiletries Salesperson Office-Dr Maldonado with [facility] to verify ability to continue managing coumadin/INR when discharged. CM will continue follow up and assist with discharge planning. Radha KEN Clinical Lollypop Machine Operator [facility] Images from the original [...] -please set him up with his outpatient deputy attorney general in [place] to be seen within 1 month of [...] to PO amio. -currently in rate-controlled AF -[id number]-PESe1 is 3, continue systemic AC with warfarin [...] early evening heparin 14 Units/kg/hr (06/14/23 1314) [id number]-FDEg Score for Atrial Fibrillation Stroke Risk Age in Years: 75+ Sex: Male CHF History: Yes Hypertension History: No Stroke/TIA/Thromboembolism History: No Vascular Disease History: No Diabetes History: No QJP1IX8-TNJd Score: 3 Complexity. Thank you for this consult. Please call with questions. We will continue to follow along. 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 Asha Bundy Labs: Please have the [facility] or [facility] obtain the following labs and fax to [phone], attention (ID Attending): Dr. Kelvin Soliz (ID [...] Clinic (Please ensure patient is enrolled in [facility] prior to discharge) If the patient is being discharged to a [facility] ([facility]), we will defer ID Care to the Infectious Disease Providers at the [facility] facility. Please instruct the facility that if [...] on 08/02/2023 at 10:00AM. Asha Bundy MD [facility] Medicine Progress Note Patient: Markus Nava, : [...] pulm edema S/w Wanda Boyle [facility] who informed me that if [...] a 78 y.o. 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 Blood cultures initially positive on 06/02/2023. Started on intermittent Cefazolin with Gentamicin prior to transfer to [facility]. 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 For [...] as noted above. 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 - [id number]-ZEFo8 is 3, continue systemic AC with warfarin [...] Daily early evening heparin 15 Units/kg/hr (06/12/232106) [id number]-LSDr Score for Atrial Fibrillation Stroke Risk Age in Years: 75+ Sex: Male CHF History: Yes Hypertension History: No Stroke/TIA/Thromboembolism History: No Vascular Disease History: No Diabetes History: No [id number]-UYKe Score: 3 Complexity. Thank you for this consult. Please call with questions. We will continue to follow along. CHEO Adamson Cardiology Consult Service Phone: [phone] [facility] Medicine Progress Note Patient: Markus Nava, : [...] Please set him up with his outpatient deputy attorney general in [place] to be seen within 1 month of [...] per BP tolerance for rate control. - [id number] is 3, continue systemic AC with warfarin [...] early evening heparin 12 Units/kg/hr (06/12/23 0633) [id number] Score for Atrial Fibrillation Stroke Risk Age in Years: 75+ Sex: Male CHF History: Yes Hypertension History: No Stroke/TIA/Thromboembolism History: No Vascular Disease History: No Diabetes History: No [id number] Score: 3 Thank you for this consult. Please call with questions. We will continue to follow along. CHEO [facility]on Cardiology Consult Service Phone: [phone] Department of Pharmacy Antimicrobial Stewardship Documentation Note [...] the following recommendations are based on [facility]'s Diagnosis and Management of Staphylococcus aureus Bacteremia [...] further questions. Name: Haley Mahmood RPH Phone: [phone] Date/Time: 06/12/2023 7:24 AM Discharge Plan Expected Discharge Date: 06/13/2023 Referred Level of Care: Home Health/Home Infusion Barriers: Cultures, Final ID recs/Antibiotic plan, PICC Current Referrals and Status [facility] assisting with Home Health/Home Infusion referrals. CM will continue following for discharge planning. Radha KEN Clinical Lollypop Machine Operator [facility] Hospital Medicine Progress Note [...] Please set him up with his outpatient deputy attorney general in [place] to be seen within 1 month of [...] rate control with BB and amiodarone - [id number] is 3, continue systemic AC with warfarin [...] early evening heparin 11 Units/kg/hr (06/11/23 0800) [id number] Score for Atrial Fibrillation Stroke Risk Age in Years: 75+ Sex: Male CHF History: Yes Hypertension History: No Stroke/TIA/Thromboembolism History: No Vascular Disease History: No Diabetes History: No [id number] Score: 3 Thank you for this consult. Please call with questions. We will continue to follow along. [facility] Cardiology Consult Service Phone: [phone] Images from the original note were not included. INFECTIOUS DISEASE FOLLOW-UP NOTE IDENTIFYING INFORMATION PATIENT: Markus Nava REFERRING PROVIDER: Heike Milan MD ADMIT DATE: 06/06/2023 TODAY'S DATE: 06/11/2023 REASON FOR CONSULT 78y M with hx of aortic valve replacement now with MSSA bacteremia and AV endocarditis ASSESSMENT Markus Nava is a 78 y.o. 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 Blood cultures initially positive on 06/02/2023. Started on intermittent Cefazolin with Gentamicin prior to transfer to [facility]. 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 For now, continue IV cefazolin by continuous infusion -- anticipate 6-8 week course from durable blood culture clearance (current day 1 = 06/08/23) with likely subsequent chronic oral suppression. Continue gentamicin for synergy (important to monitor renal function and drug levels; appreciate pharmacy assistance and monitoring while on this regimen) -- plan for 2-week course. Kelvin Soliz MD, PhD Finance Assistantstud setter Division of Infectious Diseases [facility] Medicine Progress Note Patient: Markus Nava, : [...] further questions. Name: Kelvin Pitts RPH Phone: [phone] Date/Time: 06/10/2023 3:10 PM Images from the [...] Please set him up with his outpatient deputy attorney general in [place] to be seen within 1 month of [...] rate control with BB and amiodarone - [id number] is 3, continue systemic AC with warfarin [...] Daily early evening heparin 14 Units/kg/hr (06/10/23 5894) [id number] Score for Atrial Fibrillation Stroke Risk Age in Years: 75+ Sex: Male CHF History: No Hypertension History: Yes Stroke/TIA/Thromboembolism History: No Vascular Disease History: No Diabetes History: No [id number] Score: 3 Thank you for this consult. Please call with questions. We will continue to follow along. Plan of care developed in collaboration with attending deputy attorney general Dr. Potter. CHEO Katz Cardiology Consult Service Phone: [phone] [facility] Medicine Progress Note Patient: Markus Nava, : [...] sounding good to him going sami eist. [facility] abx makes him nervious and snf as [...] Please set him up with his outpatient deputy attorney general in [place] to be seen within 1 month of [...] rate control with BB and amiodarone - [id number] is 3, home warfarin on hold currently [...] Oral Daily heparin 15 Units/kg/hr (06/09/23 0647) [id number] Score for Atrial Fibrillation Stroke Risk Age in Years: 75+ Sex: Male CHF History: No Hypertension History: Yes Stroke/TIA/Thromboembolism History: No Vascular Disease History: No Diabetes History: No [id number] Score: 3 Thank you for this consult. Please call with questions. We will continue to follow along. Plan of care developed in collaboration with attending deputy attorney general Dr. Potter. CHEO Katz Cardiology Consult Service Phone: [phone] BRIEF NUTRITION NOTE: Current Diet Orders Procedures DIET HEART HEALTHY - 4 GM SODIUM Standing Status: Standing Number of Occurrences: 1 Pt with no significant nutrition changes over the past week. Tolerating diet with adequate po intake. No notable wt changes. wildlife technician will continue to follow/assist prn. Basil Galindo DTR Pager: [phone] [facility] Medicine Progress Note Patient: Markus Nava, : [...] appropriate follow-up. Please contact our offices at [phone] to schedule. This patient was discussed with Dr. Titi Sabillon MD. We will sign off. Please call with any additional questions or concerns. Thank you. CHEO Perdue [facility] Cardiothoracic Surgery Inpatient Nurse Practitioner Phone #[phone] [facility] Coordination Note Patient received in handoff from sample case porter for potential homecare services. Referrals place in [place], awaiting responses. Will continue to follow with sample case porter for plan of care. [facility] Home Health [...] assist with discharge planning. Radha KEN Clinical Lollypop Machine Operator [facility] Department of Pharmacy Pharmacokinetics [...] contact me with any further questions. 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 IADL History IADLs: independent Primary Language: Scottish Objective/Observation: Vitals/Vitals Responses to Treatment: Vitals HR [...] Assessment: Transfer Assessment: Sit to Stand Transfer [place] Level: Sit->Stand: modified independence Skilled Rationale: Verbal cues Functional Mobility: Functional Mobility [place] Level: Functional Mobility/Gait: supervision Functional Mobility Skilled Rationale: Verbal cues [facility]RENT [facility] Daily Activity Inpatient Short Form Putting on/Taking Off Lower Body Clothin - A Little Assistance Bathin - No Assistance Toiletin - No Assistance Putting on/Taking Off Upper Body Clothin - No Assistance Groomin - No Assistance Eatin - No Assistance CURRENT AM-[facility] Activity Raw Score: 23 CURRENT AM-PAC Activity [...] Acute Physical Therapy Evaluation Prior to Admission [facility] score(s): PRIOR LEVEL AM-PAC Mobility Raw Score: 24 Current AM-PAC score(s): CURRENT AM-PAC Mobility Raw Score: 21 Based on the Gait speed, 5xSTS, AM-PAC score(s) and PT clinical judgment, patient is a good candidate for discharge to Home Barriers to discharge home: None Highest Level of activity achieved on this date Gait [place] Level: Gait: contact guard assist Ambulation Distance (Feet): (430ft) no AD, no LOB Mobility equipment available at home: none used ADL equipment available at home: none Equipment needed for discharge: none Current therapy frequency recommendation in acute: Therapy Frequency: no therapy warranted Activity Recommendations for outside of rehab session: Ambulate in hallways with RN or HARDWOOD FLOORING SPECIALIST x3 daily Precautions and Weightbearing Status: Existing [...] Equipment Available: none 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 Previous Level of Function Prior level ADL Overview: Independent with all ADLs Dominant Hand: Ambidextrous, Left Bed Mobility/Transfers: independent Ambulation Skills: independent Assistive Device: none used Level of Ambulation: community Prior Level of Function 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 Objective/Observation: Vitals/Vitals Responses to Treatment: Vitals monitored [...] width Transfer Assessment: Sit to Stand Transfer [place] Level: Sit->Stand: supervision Skilled Rationale: Hand placement, Verbal cues, Cues for increased safety, Facilitate anterior shift Skilled Intervention/Details: Sit->Stand: cues for STS mechanics and increased safety Stand to Sit Transfer [place] Level: Stand->Sit: supervision Skilled Rationale: Hand placement, Verbal cues, Technique of activity Gait/Functional Mobility: Gait Assessment [place] Level: Gait: contact guard assist Ambulation Distance (Feet): (430ft) Gait Deviations Identified: decreased david, decreased step length Gait Skilled Rationale: verbal, upright posture Skilled Intervention/Details - Gait: Cues for equal step length Stairs: Stairs Assessment [place] Level: Stair Negotiation: not tested Outcome Score(s): [...] Household ambulation Limited Community ambulation Community ambulation [facility] safely 0 - 0.4 meter/sec 0.4 - 0.8 meter/sec 0.8 - 1.3 meter/sec >1.4 meter/sec Dylan Marc, Quinn Veloz (2015) [facility]RENT [facility] Basic Mobility Inpatient Short Form Turning over in bed: 4 - No Assistance Sitting/standing from chair: 4 - No Assistance Moving from lying on back to sittin - No Assistance Moving to and from bed to chair: 3 - A Little Assistance Walk in hospital room: 3 - A Little Assistance Climbing 3-5 steps with a railin - A Little Assistance [facility] Mobility Raw Score: 21 [facility] Mobility Functional Limitation/Modifier: 28.97% Currently Impaired [...] PO amio. Currently in rate-controlled AF. - [id number] is 3, on heparin gtt - Recommend [...] mg Oral Daily heparin 14 Units/kg/hr (06/08/23904) [id number] Score for Atrial Fibrillation Stroke Risk Age in Years: 75+ Sex: Male CHF History: No Hypertension History: Yes Stroke/TIA/Thromboembolism History: No Vascular Disease History: No Diabetes History: No [id number] Score: 3 Thank you for this consult. Please call with questions. We will continue to follow along. CHEO Mtz Cardiology Consult Service Phone: [phone] Images from the original note were not included. INFECTIOUS DISEASE FOLLOW-UP NOTE IDENTIFYING INFORMATION PATIENT: Markus Nava REFERRING PROVIDER: Heike Milan MD ADMIT DATE: 06/06/2023 TODAY'S DATE: 06/08/2023 REASON FOR CONSULT 78y M with hx of aortic valve replacement now with MSSA bacteremia and AV endocarditis ASSESSMENT Markus Nava is a 78 y.o. 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 Blood cultures initially positive on 06/02/2023. Started on intermittent Cefazolin with Gentamicin prior to transfer to [facility] on 06/06/2023. 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) complicated [...] 06/08/2023 Microbiologic Data (personally reviewed): Blood (06/02/2023, [facility]): MSSA Blood (06/06/2023): MSSA (Line & Peripheral) [...] MD, PhD Division of Infectious Diseases [facility] Hospital Medicine Progress Note Patient: Markus [...] No Spouse: No (Thai Lin Significant Other [phone]) Adult Child(alberto), List All Adult Children: Yes Name and Contact information: Dominique Landon [phone] (patient is not and has one adult [...] Yes Provider or Clinic that manages Anticoagulation?: [facility] Salesperson manages No Pharmacies Listed Grain Picker Does the patient or distribution sales representative express financial concerns? : No Employed?: Retired Coping/Stress Concerns about patient s coping and stress?: No Concerns about patient s caregiver s coping and stress?: Unable to Assess Values and Beliefs Cultural or advent practices that may impact discharge planning and/or medical care?: No Initial Discharge Planning Anticipated discharge disposition: Home with Infusion Transportation Available for Discharge: Private Vehicle, Family or Friend Anticipated DME: none Anticipated Services at Discharge: Outpatient follow up, Nursing Home Patient Assessment Completed: Initial Expected Discharge Date: 06/12/2023 Discharge Planning Summary CM met with patient to complete initial assessment Anticipate discharge home with outpatient follow up vs home with home infusion and outpatient follow up Case Management Plan 1.Role of Clinical Lollypop Machine Operator explained while [facility] to [facility] 2.PCP/Specialist/pharmacy information updated as needed 3. Patient demographic/address/emergency contact information verified 4.Clinical Lollypop Machine Operator will continue to follow with medical team to coordinate discharge planning. Radha KEN Clinical Lollypop Machine Operator [facility] Department of Pharmacy Admission [...] hallucinations Warfarin - Patient reports followed by [place] [facility]. Patient has 1 mg and 5 mg tablets at home. Current patient reported directions are: Take 6.5 mg daily on Sun, Mon, Tues, Thurs, Fri, and Sat. Take 8 mg on Suns. Please feel free to contact me with any further questions. Name: Binu Chauhan Phone #: [phone] Date/Time: 06/07/2023 10:07 AM Time Spent: 25 minutes Associated attestation - Judson Parsons RPH - 06/07/2023 1:16 PM EST Department of Pharmacy Admission Medication Reconciliation Note Patient: Markus Nava Room/Bed: [facility] I have reviewed the home medication list with the Supervisor Microbiology Technologists. The home medication list status is: complete. A call to the pharmacy was not needed because the information compiled from listed sources corroborates the patient/caregiver interview. All changes to the home medication list have been updated in [facility]. 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 Name: Judson Parsons [facility] Phone #: [phone] Date/Time: 06/07/2023 1:16 PM Occupational Therapy Attempt [...] minutes): 0 minutes documented in this encounter [facility] 06-19-2023 Nurse Note Report called to [facility] 06-16-2023 Plan of care note Problem: [...] factors/behavior modification for fall/injury prevention Outcome: Ongoing [facility] 06-16-2023 Consult note Formatting of is note [...] if new bleeding is noted. Please page #[phone] for issues, thanks [facility] 06-16-2023 Consult note Formatting of th is [...] if new bleeding is noted. Please page #[phone] for issues, thanks Report of PICC Consultation [...] age Patient Teaching: Yes Family Teaching: No Boston Protocol/Time Out Completed under Procedure Documentation Step [...] yes Care of specimens (if applicable): N/A Boston Protocol Verification Name of Practitioner attesting all steps of the Boston Protocol have been completed: jovani Pager: [phone] Pre Procedure Relevant lab results available: Yes [...] (medial side of arm), right Device/Lot Number: Clarifying Plant Operator/Lot Number: [id number] Size/Length: 4 Fr Inserted Catheter Length (cm): [...] trauma): N/A Before the procedure, did the automatic grinding machine operator Document informed consent. Yes Perform timeout. Yes 3. Desizing Machine Offbearer: If enter sterile field, uses sterile gown and gloves, cap, mask/eye protection. N/A 4. Prep site with ChloraPrep for 30 sec minimum (if femoral 120 sec minimum). Yes 5. Sterile technique to drape patient from head to toe. Yes During the procedure, did the automatic grinding machine operator Maintain a sterile field. Yes Obtain a qualified english as a second language teacher IF 3 unsuccessful sticks. (except if emergent); document the number of attempts. N/A Change gloves: if a catheter was exchanged over a guide wire before handling the new sterile catheter. N/A Account for the guidewire at all times. Yes After the procedure, did the automatic grinding machine operator Apply a sterile dressing immediately after [...] to reach POA Additional note: PICC pager [phone] PIV pager [phone] Associated Order(s): IP CONSULT TO DERMATOLOGY Assessment and Plan [place] shiny plaque with hemorrhagic crust and dilated telangiectasias on right neck - This is consistent with a basal cell carcinoma. Basal cell carcinoma is treated in the outpatient setting with wide local excision vs. Mohs surgery -It is imperative that he follows up with a hose suspender cutter once discharged for definitive treatment. Offered patient follow up with [facility] derm, but he prefers to establish with a hose suspender cutter closer to home. If he is unable to find a hose suspender cutter closer to home, he should call [phone] to schedule an appointment with [facility] dermatology. robby you for allowing us to participate in the care of this patient. Our consult team will sign off today, 06/10/2023. Please contact the dermatology resident air quality consultant if you have any further questions. Haley Kenyon MD Dermatology Resident Consult Request neck lesion concern for basal cell carcinoma Requesting service: [facility] History of Present Illness. Patient [...] none Additional Summarized Information: Patient lives in [place] and would like to establish with a hose suspender cutter closer to his home for outpatient care. [...] []Oropharynx []Lymph []Periph Vascular All normal except: [place] shiny plaque with hemorrhagic crust and dilated [...] IVPB 60 mg Intravenous Q12HNS Kelvin Pitts, [facility] Heparin 25,000 units in dextrose 5% 250 [...] stressed need for followup with his community hose suspender cutter, along with please call us if he [...] prophylaxis once he completes treatment. 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 Discussed with attending, Dr. Knott. Isdiro Jimenez MD Internal Medicine Resident, PGY-2 HISTORY [...] for management recommendations. Patient was admitted to [facility] 06/02/23-06/06/23 after presenting with fevers (Tmax 103F [...] surgery evaluation. Per his discharge summary from [facility], a repeat blood culture drawn from a [...] note, patient also had recent hospitalization at [facility] for lower GI bleed from 04/25/23-05/04/23. Colonoscopy [...] MD, PhD Division of Infectious Diseases [facility] Associated Order(s): IP CONSULT TO SURGERY [...] mechanical valve. He was initially admitted to [facility] 06/02/23-06/06/23 with fevers and chills. He was found to have MSSA bacteremia and septic shock requiring levophed and stress dose steroids. He also had afib RVR and was started on an amiodarone gtt. 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 He was then transferred to [facility] for further management and surgical evaluation. [...] any additional questions or concerns. Laurie Fritz APRN-[facility] Cardiac Surgery REBA Pager/Phone #[phone] Associated Order(s): IP CONSULT TO CARDIOLOGY CARDIOLOGY [...] is a 78 y.o. male admitted to [facility] and the Cardiology service has been [...] his prosthetic infection. He was transferred to [facility] for further evaluation. Upon arrival patient was found resting comfortably in bed, denies any acute complaints and feels near his baseline. Patient is a avid care taker and has intact functional capacity, hiking several [...] 29.46 kg/m O2 Device: room air (06/06/23 2751) General: NAD, well developed, well groomed, appears [...] as needed. documented in this encounter [facility] 06-16-2023 Consult note Formatting of [...] if new bleeding is noted. Please page #[phone] for issues, thanks Report of PICC Consultation [...] age Patient Teaching: Yes Family Teaching: No Boston Protocol/Time Out Completed under Procedure Documentation Step [...] yes Care of specimens (if applicable): N/A Boston Protocol Verification Name of Practitioner attesting all steps of the Boston Protocol have been completed: jovani Pager: [phone] Pre Procedure Relevant lab results available: Yes [...] (medial side of arm), right Device/Lot Number: Clarifying Plant Operator/Lot Number: [id number] Size/Length: 4 Fr Inserted Catheter Length (cm): [...] trauma): N/A Before the procedure, did the automatic grinding machine operator Document informed consent. Yes Perform timeout. Yes 3. Desizing Machine Offbearer: If enter sterile field, uses sterile gown and gloves, cap, mask/eye protection. N/A 4. Prep site with ChloraPrep for 30 sec minimum (if femoral 120 sec minimum). Yes 5. Sterile technique to drape patient from head to toe. Yes During the procedure, did the automatic grinding machine operator Maintain a sterile field. Yes Obtain a qualified english as a second language teacher IF 3 unsuccessful sticks. (except if emergent); document the number of attempts. N/A Change gloves: if a catheter was exchanged over a guide wire before handling the new sterile catheter. N/A Account for the guidewire at all times. Yes After the procedure, did the automatic grinding machine operator Apply a sterile dressing immediately after [...] Additional note: PICC pager [phone] PIV pager [phone] Associated Order(s): IP CONSULT TO DERMATOLOGY Assessment and Plan [place] shiny plaque with hemorrhagic crust and dilated telangiectasias on right neck - This is consistent with a basal cell carcinoma. Basal cell carcinoma is treated in the outpatient setting with wide local excision vs. Mohs surgery -It is imperative that he follows up with a hose suspender cutter once discharged for definitive treatment. Offered patient follow up with [facility] derm, but he prefers to establish with a hose suspender cutter closer to home. If he is unable to find a hose suspender cutter closer to home, he should call [phone] to schedule an appointment with [facility] dermatology. robby you for allowing us to participate in the care of this patient. Our consult team will sign off today, 06/10/2023. Please contact the dermatology resident air quality consultant if you have any further questions. Haley Kenyon MD Dermatology Resident Consult Request neck lesion concern for basal cell carcinoma Requesting service: [facility] History of Present Illness. Patient [...] none Additional Summarized Information: Patient lives in [place] and would like to establish with a hose suspender cutter closer to his home for outpatient care. [...] []Oropharynx []Lymph []Periph Vascular All normal except: [place] shiny plaque with hemorrhagic crust and dilated [...] IVPB 60 mg Intravenous Q12HNS Kelvin Pitts, [facility] Heparin 25,000 units in dextrose 5% 250 [...] stressed need for followup with his community hose suspender cutter, along with please call us if he [...] prophylaxis once he completes treatment. 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 Patient was admitted to [facility] 06/02/23-06/06/23 after presenting with fevers (Tmax 103F [...] surgery evaluation. Per his discharge summary from [facility], a repeat blood culture drawn from a [...] note, patient also had recent hospitalization at [facility] for lower GI bleed from 04/25/23-05/04/23. Colonoscopy [...] MD, PhD Division of Infectious Diseases [facility] Associated Order(s): IP CONSULT TO SURGERY [...] mechanical valve. He was initially admitted to [facility] 06/02/23-06/06/23 with fevers and chills. He was found to have MSSA bacteremia and septic shock requiring levophed and stress dose steroids. He also had afib RVR and was started on an amiodarone gtt. 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 He was then transferred to [facility] for further management and surgical evaluation. [...] any additional questions or concerns. Laurie Fritz APRN-[facility] Cardiac Surgery REBA Pager/Phone #[phone] Associated Order(s): IP CONSULT TO CARDIOLOGY CARDIOLOGY CONSULTATION NOTE IMPRESSION AND PLAN Mr. Nava is a 78 y.o. male who presents as a transfer from [facility] in the setting of MSSA endocarditis MSSA [...] is a 78 y.o. male admitted to [facility] and the Cardiology service has been [...] his prosthetic infection. He was transferred to [facility] for further evaluation. Upon arrival patient was found resting comfortably in bed, denies any acute complaints and feels near his baseline. Patient is a avid care taker and has intact functional capacity, hiking several [...] 29.46 kg/m O2 Device: room air (06/06/23 0961) General: NAD, well developed, well groomed, appears [...] metoprolol as needed. documented in this encounter [facility] 06-16-2023 Nurse Note PICC line continues to bleed from site. Able to flush and draw blood from it. Dressing changed once for leaking of blood that had pooled under dressing yesterday at around 0400. Bled again at 0500 through dressing onto bed. Cleaned around site after drawing AM labs and wrapped with gauze, secured with Kerlix and Coban. [facility] 06-15-2023 Plan of care note Problem: Patient [...] factors/behavior modification for fall/injury prevention Outcome: Ongoing [facility] 06-15-2023 Plan of care note Patient anxious, requesting AM lorazepam dose early. Will order retime so that he receives it now. [facility] Work Phone: 06-14-2023 Consult note Formatting of [...] age Patient Teaching: Yes Family Teaching: No Boston Protocol/Time Out Completed under Procedure Documentation Step [...] yes Care of specimens (if applicable): N/A Boston Protocol Verification Name of Practitioner attesting all steps of the Boston Protocol have been completed: jovani Pager: [phone] Pre Procedure Relevant lab results available: Yes [...] (medial side of arm), right Device/Lot Number: Clarifying Plant Operator/Lot Number: [id number] Size/Length: 4 Fr Inserted Catheter Length (cm): [...] trauma): N/A Before the procedure, did the automatic grinding machine operator Document informed consent. Yes Perform timeout. Yes 3. Desizing Machine Offbearer: If enter sterile field, uses sterile gown and gloves, cap, mask/eye protection. N/A 4. Prep site with ChloraPrep for 30 sec minimum (if femoral 120 sec minimum). Yes 5. Sterile technique to drape patient from head to toe. Yes During the procedure, did the automatic grinding machine operator Maintain a sterile field. Yes Obtain a qualified english as a second language teacher IF 3 unsuccessful sticks. (except if emergent); document the number of attempts. N/A Change gloves: if a catheter was exchanged over a guide wire before handling the new sterile catheter. N/A Account for the guidewire at all times. Yes After the procedure, did the automatic grinding machine operator Apply a sterile dressing immediately after insertion. Yes Document date and time on the dressing. Yes Perform hand hygiene. Yes All staff wore a mask until sterile dressing placed. Yes Dispose sharps immediately after the procedure. Yes I have completed the Central Venous Catheter Insertion Checklist. [facility] 06-14-2023 Plan of care note Problem: Patient [...] factors/behavior modification for fall/injury prevention Outcome: Ongoing [facility] 06-13-2023 Consult note Formatting of th is [...] this patient. Vascular Access Team [phone] [facility] 06-11-2023 Plan of care note Problem: Patient Care Overview Goal: Plan of Care Review Outcome: Ongoing Goal: Individualization & Mutuality Outcome: Ongoing Goal: Discharge Needs Assessment Outcome: Ongoing Goal: Interdisciplinary Rounds/Family Conf Outcome: Ongoing [facility] 06-11-2023 Nurse Note 06/11/23 1451 Patient Choice [...] services: [facility], [id number] [place] [address] Fax: [phone] Addendum at 6590: Patient will also use [facility] for infusion pharmacy: [facility], an [employer] [facility] [address] [place] [address] NATAN Mills RN [facility] 06-11-2023 Consult note Formatting of th is [...] to reach POA Additional note: PICC pager [phone] PIV pager [phone] [facility] 06-10-2023 Consult note Associated Order (s): IP CONSULT TO DERMATOLOGY Assessment and Plan [place] shiny plaque with hemorrhagic crust and dilated telangiectasias on right neck - This is consistent with a basal cell carcinoma. Basal cell carcinoma is treated in the outpatient setting with wide local excision vs. Mohs surgery -It is imperative that he follows up with a hose suspender cutter once discharged for definitive treatment. Offered patient follow up with [facility] derm, but he prefers to establish with a hose suspender cutter closer to home. If he is unable to find a hose suspender cutter closer to home, he should call [phone] to schedule an appointment with [facility] dermatology. robby you for allowing us to participate in the care of this patient. Our consult team will sign off today, 06/10/2023. Please contact the dermatology resident air quality consultant if you have any further questions. Haley Kenyon MD Dermatology Resident Consult Request neck lesion concern for basal cell carcinoma Requesting service: [facility] History of Present Illness. Patient [...] none Additional Summarized Information: Patient lives in [place] and would like to establish with a hose suspender cutter closer to his home for outpatient care. [...] []Oropharynx []Lymph []Periph Vascular All normal except: [place] shiny plaque with hemorrhagic crust and dilated [...] IVPB 60 mg Intravenous Q12HNS Kelvin Pitts, [facility] Heparin 25,000 units in dextrose 5% 250 [...] stressed need for followup with his community hose suspender cutter, along with please call us if he has any problems accessing care. Lance Shepard MD Dermatology [facility] Work Phone: 06-08-2023 Plan of care note Problem: Patient Care Overview Goal: Plan of Care Review Outcome: Ongoing Flowsheets (Taken 06/08/20232026) Plan Of Care Reviewed With: patient Goal: Individualization & Mutuality Outcome: Ongoing Problem: Fall/Trauma/Injury Risk (Adult) Goal: Fall/Trauma/Injury Risk: Absence of Trauma/Injury/Falls Description: Patient will demonstrate the desired outcomes. Outcome: Ongoing [facility] 06-08-2023 Plan of care note Problem: OT - Endurance Goal: Endurance Functional Mobility - Patient will complete distance needed for common household mobility with no greater than 1 rest breaks for improved tolerance to safely complete I/ADL's Outcome: Ongoing [facility] 06-08-2023 Plan of care note Problem: PT - General Goals Goal: Ambulation - Patient will ambulate 250 feet with independence and without an assistive device to improve ability to safely navigate home and community. Outcome: Adequate for Discharge [facility] 06-08-2023 Plan of care note Problem: Patient Care Overview Goal: Plan of Care Review Outcome: Ongoing Goal: Individualization & Mutuality Outcome: Ongoing Goal: Discharge Needs Assessment Outcome: Ongoing Goal: Interdisciplinary Rounds/Family Conf Outcome: Ongoing [facility] 06-07-2023 Hospital Discharge instructions Xu Gaines RN - 06/07/2023 11:55 AM EST Patient Experience Survey Reminder You may receive a survey in the mail within a few weeks regarding your hospitalization. This helps us to improve the care and services we provide at [facility]. We truly appreciate you taking the time to fill this out. We particularly welcome any specific comments you may have (good or bad!) regarding your experience at [facility] so that we may use them to continue to strive towards excellence for our patients. PICC Referral for Patient Continuity of Care PICC Line - Single Lumen 06/14/23 1132 basilic vein (medial side of arm), right 4 Fr (Active) 06/14/23 1132 Present On Admission : no Lumen 1: Lumen 2: Lumen 3: purple Location: basilic vein (medial side of arm), right Device/Lot Number: Clarifying Plant Operator/Lot Number: [id number] Size/Length: 4 Fr Inserted Catheter Length (cm): [...] or questions call the inserting PICC Service. -[facility]. M-F, 7am to 5:30pm. Pager or leave a message on the answering machine . *Evening/Nights/Weekends and Holidays: The [facility] Stat Nurse will cover PICC Services at [facility] and may trouble shoot, repair and declott PICC lines. Pager . -[facility]. M-F, 8am to 6pm. Pager . *Evenings/Nights/Weekends and Holidays: Call . -[facility]. Pager . documented in this encounter [facility] 06-07-2023 Hospital Discharge instructions Xu Gaines RN - 06/07/2023 11:55 AM EST Patient Experience Survey Reminder You may receive a survey in the mail within a few weeks regarding your hospitalization. This helps us to improve the care and services we provide at [facility]. We truly appreciate you taking the [...] (medial side of arm), right Device/Lot Number: Clarifying Plant Operator/Lot Number: [id number] Size/Length: 4 Fr Inserted Catheter Length (cm): [...] Information For issues or questions call the [facility] PICC Service. -[facility]. M-F, 7am to 5:30pm. Pager or leave a message on the Kn[employer] machine . *Evening/Nights/Weekends and Holidays: The [facility] Stat Nurse will cover PICC Services at [facility] and may trouble shoot, repair and declott PICC lines. Pager . -[facility]. M-F, 8am to 6pm. Pager . *Evenings/Nights/Weekends and Holidays: Call . -[facility]. Pager . [facility] Consult note Associated Order (s): IP [...] prophylaxis once he completes treatment. 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 Patient was admitted to [facility] 06/02/23-06/06/23 after presenting with fevers (Tmax 103F [...] surgery evaluation. Per his discharge summary from [facility], a repeat blood culture drawn from a [...] note, patient also had recent hospitalization at [facility] for lower GI bleed from 04/25/23-05/04/23. Colonoscopy [...] MD, PhD Division of Infectious Diseases [facility] Work Phone: 06-07-2023 Consult note Associated Order [...] mechanical valve. He was initially admitted to [facility] 06/02/23-06/06/23 with fevers and chills. He was found to have MSSA bacteremia and septic shock requiring levophed and stress dose steroids. He also had afib RVR and was started on an amiodarone gtt. 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 He was then transferred to [facility] for further management and surgical evaluation. [...] any additional questions or concerns. Laurie Fritz APRN-[facility] Cardiac Surgery REBA Pager/Phone #[phone] [facility] 06-07-2023 Consult note Associated Order (s): IP CONSULT TO CARDIOLOGY CARDIOLOGY CONSULTATION NOTE IMPRESSION AND PLAN Mr. Nava is a 78 y.o. male who presents as a transfer from [facility] in the setting of MSSA endocarditis MSSA [...] is a 78 y.o. male admitted to [facility] and the Cardiology service has been [...] his prosthetic infection. He was transferred to [facility] for further evaluation. Upon arrival patient was found resting comfortably in bed, denies any acute complaints and feels near his baseline. Patient is a avid care taker and has intact functional capacity, hiking several [...] 29.46 kg/m O2 Device: room air (06/06/23 3172) General: NAD, well developed, well groomed, appears [...] control. Increase dose of metoprolol as needed. [facility] Work Phone: 06-06-2023 Plan of care note Problem: Patient Care Overview Goal: Plan of Care Review Outcome: Ongoing Goal: Individualization & Mutuality Outcome: Ongoing Goal: Discharge Needs Assessment Outcome: Ongoing Goal: Interdisciplinary Rounds/Family Conf Outcome: Ongoing [facility] 06-06-2023 History and physical note Hospital [...] transfer for endocarditis. Patient was admitted at [facility] 06/02/23 - 06/06/23. He initially presented with [...] for CT surgery evaluation. Upon arrival to [facility], patient complains of feeling cold. Also [...] erythema Skin: No jaundice or rash Neuro: hydraulic corrugating machine operator 3-7, 9-11 intact and equal. Psych: Ox3, [...] freely mobile, stable appearing mechanical AV apparatus [facility] 06-06-2023 History and physical note Hospital Medicine [...] transfer for endocarditis. Patient was admitted at [facility] 06/02/23 - 06/06/23. He initially presented with [...] for CT surgery evaluation. Upon arrival to [facility], patient complains of feeling cold. Also [...] erythema Skin: No jaundice or rash Neuro: hydraulic corrugating machine operator 3-7, 9-11 intact and equal. Psych: Ox3, [...] AV apparatus documented in this encounter [facility] 06-06-2023 History and physical note [...] transfer for endocarditis. Patient was admitted at [facility] 06/02/23 - 06/06/23. He initially presented with [...] for CT surgery evaluation. Upon arrival to [facility], patient complains of feeling cold. Also [...] erythema Skin: No jaundice or rash Neuro: hydraulic corrugating machine operator 3-7, 9-11 intact and equal. Psych: Ox3, [...] AV apparatus documented in this encounter [facility] 04-05-2021 Note [facility] 03-29-2021 Note [facility] 03-19-2021 Note Problem: Restraint: Goal: Remain safe while in restraints and once discontinued Outcome: Not Progressing Note: Restraint care provided Q2. Cont assessment on removal [facility] Evaluation note Diagnosis Endocarditis- Primary Endocarditis, [...] stricture, unspecified [facility] Diagnosis Endocarditis- Primary Endocarditis, [...] stricture, unspecified [facility] Diagnosis Acute bacterial endocarditis Acute and subacute bacterial endocarditis documented [facility] this encounter [facility] ([facility]arrative[facility] (Routine) Specialty Diagnoses / Procedures Referred By Lazaro guerrier Referred To Contact [facility] [address] [place] [phone] Referral ID Status Reason Start Date Expiration Date Visits Re quested Visits Authorized * Transfer of Care (Routine) - New Request Specialty Diagnoses / Procedures Referred By Lazaro guerrier Referred To Contact Social Work Diagnoses Acute bacterial endocarditis Wiley Covington MD [address] [place] [address] Referral ID Status Reason Start Date Expiration Date V isits Requested Visits Authorized [id number] New Request 06/18/2023 07/12/2024 1 1 * (Routine) Specialty Diagnoses / Procedures Referred By Lazaro guerrier Referred To Contact [facility] [address] [place] [address] Referral ID Status Reason Start Date Expiration Date Visits Re quested Visits Authorized * Consultation (Routine) - New Request Specialty Diagnoses / Procedures Referred By Contac t Referred To Contact Cardiac Surgery Diagnoses Acute bacterial endocarditis Wiley Covington MD [address] [address] Referral ID Status Reason Start Date Expiration Date V isits Requested Visits Authorized [id number] New Request 06/15/2023 07/09/2024 1 1 * Radiology (Routine) - New Request Specialty Diagnoses / Procedures Referred By Contac t Referred To Contact Diagnoses Acute bacterial endocarditis Procedures ECHOCARDIOGRAM TRANSESOPHAGEAL (FER) DE ECHO TRANSESOPHAG R-T 2D W/PRB IMG ACQUISJ I&R Wiley Covington MD [address] [address] Referral ID Status Reason Start Date Expiration Date V isits Requested Visits Authorized [id number] New Request 06/15/2023 07/09/2024 1 1 * Consultation (Routine) - New Request Specialty Diagnoses / Procedures Referred By Contac t Referred To Contact Infectious Diseases Diagnoses Acute bacterial endocarditis Wiley Covington MD [address] [address] Referral ID Status Reason Start Date Expiration Date V isits Requested Visits Authorized [id number] New Request 06/15/2023 07/09/2024 1 1 * (Routine) - New Request Specialty Diagnoses / Procedures Referred By Contac t Referred To Contact Diagnoses Acute bacterial endocarditis Wiley Covington MD [address] [place] [address] Referral ID Status Reason Start Date Expiration Date V isits Requested Visits Authorized [id number] New Request 06/15/2023 07/09/2024 1 1 * Radiology (Routine) - New Request Specialty Diagnoses / Procedures Referred By Contac t Referred To Contact Diagnoses Acute bacterial endocarditis Procedures ECHOCARDIOGRAM TRANSESOPHAGEAL (FER) DE ECHO TRANSESOPHAG R-T 2D W/PRB IMG ACQUMECCA I&R Heydi, Kelvin Krishnamurthy MD, PhD [address] [place] [id number] Referral ID Status Reason Start Date Expiration Date V isits Requested Visits Authorized [id number] New Request 06/13/2023 07/07/2024 1 1 * (Routine) Specialty Diagnoses / Procedures Referred By Contac t Referred To Contact [facility] [address] [place] [address] Referral ID Status Reason Start Date Expiration Date Visits Re quested Visits Authorized * Radiology (Routine) - New Request Specialty Diagnoses / Procedures Referred By Contac t Referred To Contact Procedures ECG Shirley Rossi, 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 NEW PRODUCT [address] [place] [phone] Referral ID Status Reason Start Date Expiration Date V isits Requested Visits Authorized [id number] New Request 06/11/2023 07/05/2024 1 1 * (Routine) Specialty Diagnoses / Procedures Referred By Contac t Referred To Contact [facility] [address] [place] [address] Referral ID Status Reason Start Date Expiration Date Visits Re quested Visits Authorized * (Routine) Specialty Diagnoses / Procedures Referred By Contac t Referred To Contact [facility] [address] [place] [phone] Referral ID Status Reason Start Date Expiration Date Visits Re quested Visits Authorized * (Routine) Specialty Diagnoses / Procedures Referred By Contac t Referred To Contact [facility] [address] [place] [address] Referral ID Status Reason Start Date Expiration Date Visits Re quested Visits Authorized * Unlisted Procedure Code (Routine) - Pending Review Specialty Diagnoses / Procedures Referred By Contac t Referred To Contact Procedures DVT/VTE RISK ASSESSMENT Katiana Cabrera MD [address] [place], [place] [id number] Referral ID Status Reason Start Date Expiration Date V isits Requested Visits Authorized [id number] Pending Review 06/06/2023 06/30/2024 1 1 * Radiology (Emergency) - Pending Review Specialty Diagnoses / Procedures Referred By Contac t Referred To Contact Procedures ECG Katiana Cabrera MD [address] [place] [address] Referral ID Status Reason Start Date Expiration Date V isits Requested Visits Authorized [id number] Pending Review 06/06/2023 06/30/2024 [address] [facility] Summary Purpose Family History No Family [...] endocarditis Wiley Covington MD [address] [address] Referral ID Status Reason Start Date Expiration Date V isits Requested Visits Authorized [id number] New Request 06/18/2023 07/12/2024 1 1 Specialty Diagnoses / Procedures Referred By Contac t Referred To Contact [facility] [address] [place] [address] Referral ID Status Reason Start Date Expiration Date Visits Re quested Visits Authorized Specialty Diagnoses / Procedures Referred By Contac t Referred To Contact Cardiac Surgery Diagnoses Acute bacterial endocarditis Wiley Covington MD [address] [address] Referral ID Status Reason Start Date Expiration Date V isits Requested Visits Authorized [id number] New Request 06/15/2023 07/09/2024 1 1 Specialty Diagnoses / Procedures Referred By Contac t Referred To Contact Diagnoses Acute bacterial endocarditis Procedures ECHOCARDIOGRAM TRANSESOPHAGEAL (FER) DE ECHO TRANSESOPHAG R-T 2D W/PRB IMG ACQUISJ I&R Wiley Covington MD [address] [address] Referral ID Status Reason Start Date Expiration Date V isits Requested Visits Authorized [id number] New Request 06/15/2023 07/09/2024 1 1 Specialty Diagnoses / Procedures Referred By Contac t Referred To Contact Infectious Diseases Diagnoses Acute bacterial endocarditis Wiley Covington MD [address] [address] Referral ID Status Reason Start Date Expiration Date V isits Requested Visits Authorized [id number] New Request 06/15/2023 07/09/2024 1 1 Specialty Diagnoses / Procedures Referred By Contac t Referred To Contact Diagnoses Acute bacterial endocarditis Wiley Covington MD [address] [place] [address], [place] [address] Referral ID Status Reason Start Date Expiration Date V isits Requested Visits Authorized [id number] New Request 06/15/2023 07/09/2024 1 1 Specialty Diagnoses / Procedures Referred By Contac t Referred To Contact Diagnoses Acute bacterial endocarditis Procedures ECHOCARDIOGRAM TRANSESOPHAGEAL (FER) DE ECHO TRANSESOPHAG R-T 2D W/PRB IMG TRI Santo&R Kelvin Soliz MD, PhD [address] [place] [address] Referral ID Status Reason Start Date Expiration Date V isits Requested Visits Authorized [id number] New Request 06/13/2023 07/07/2024 1 1 Specialty Diagnoses / Procedures Referred By Contac t Referred To Contact Procedures DVT/VTE RISK ASSESSMENT Katiana Cabrera MD [address] [place] [address] Referral ID Status Reason Start Date Expiration Date V isits Requested Visits Authorized [id number] Pending Review 06/06/2023 06/30/2024 1 1 Additional Source Comments (unrecognized sect ion and content) No Status Records FoundNo Status Records FoundNo Status Records FoundNo Status Records FoundNo Status Records Found INFORMATION SOURCE (unrecogn ized section and content) DATE CREATED AUTHOR 11/28/2017 [facility] DATE CREATED AUTHOR AUTHOR'S ORGANIZ ATION 03/07/2022 [facility] DATE CREATED AUTHOR AUTHOR'S ORGANIZ ATION 07/25/2023 [facility] DATE CREATED AUTHOR AUTHOR'S ORGANIZ ATION 06/23/2024 [facility] DATE CREATED AUTHOR AUTHOR'S ORGANIZ ATION 12/14/2024 [facility] Reason for Visit (unrecogniz ed section and content) Specialty Diagnoses / Procedures Referred By Contac t Referred To Contact Diagnoses valve vegatation Katiana Cabrera MD [address] [place] [id number] [facility] [address] [place] [address] Referral ID Status Reason Start Date Expiration Date Visits Re quested Visits Authorized [id number] 1 1 Specialty Diagnoses / Procedures Referred By Contac t Referred To Contact Diagnoses Acute bacterial endocarditis Procedures ECHOCARDIOGRAM TRANSESOPHAGEAL (FER) DE ECHO TRANSESOPHAG R-T 2D W/PRB IMG TRI Santo&R Wiley Covington MD [address] [place] [address] Referral ID Status Reason Start Date Expiration Date V isits Requested Visits Authorized [id number] New Request 06/15/2023 07/09/2024 1 1 Scheduled [...] Barbara Leigh RN)2120 (Paused - Provider: Asha Prakash RN)2125 (Restarted - Provider: Asha Prakash RN) [...] Samir Sesay RN)0857 (Stopped - Provider: Samir Sesya RN)2015 ($$New Bag$$ - Provider: Barbara Leigh, [...] Leigh RN)1800 (Due - Provider: Osiel Carrillo [facility]) Metoprolol (LOPRESSOR) tablet 50 mg 50 mg, [...] RN)0610 (Rate/Dose Verify - Provider: Barbara Leigh RN)8889 (Stopped - Provider: Irena Hansen RN) PRN [...]
Care Teams (unrecognized sec tion and content) Social Insurance Specialist Relationship Specialty Start Date End Date Louie Burns DO [address] [facility] [place] [address] [place] [phone] PCP - General Family Medicine 06/06/23 Nidia Hernandez MD [address] [place], [place] [id number] PCP - Referring 1 Gastroenterology 06/07/23 Michael Maldonado MD [address] [place] [address] [address] [place], [place] [id number] PCP - Referring 2 Cardiovascular Disease 06/14/23 Jeff Kong, [facility] Pharmacist Infectious Disease 06/15/23 08/03/23 Kelvin Soliz MD, PhD [address] [address] Infectious Disease Infectious Disease 06/15/23 08/03/23 Asha Bundy MD [address] [place] [address] Infectious Disease Infectious Disease 06/15/23 08/03/23 Social Insurance Specialist Relationship Specialty Start Date End Date Louie Burns DO [address] [address] [place] [address] PCP - General Family Medicine 06/06/23 Nidia Hernandez MD [address] [place] [address] PCP - Referring 1 Gastroenterology 06/07/23 Michael Maldonado MD [address] [place], [place] [address] PCP - Referring 2 Cardiovascular Disease 06/14/23 Jeff Kong, [facility] Pharmacist Infectious Disease 06/15/23 08/03/23 Kelvin Soliz MD, PhD [address] [place] [address] Infectious Disease Infectious Disease 06/15/23 08/03/23 Asha Bundy MD [address] [place] [address] Infectious Disease Infectious Disease 06/15/23 08/03/23 Social Insurance Specialist Relationship Specialty Start Date End Date Louie Burns DO [address] [place] [place] [address] [place] [phone] PCP - General Family Medicine 06/06/23 Nidia Hernandez MD [address] [place] [address] PCP - Referring 1 Gastroenterology 06/07/23 Michael Maldonado MD [address] [place] [address] PCP - Referring 2 Cardiovascular Disease 06/14/23 [...] BE BASED ON THE PRIMARY CLINICAL RECORDS. [employer] provides no warranty or guarantee of the accuracy or completeness of information in this document.
== END | disposition home or self-care (01) ==
PROVIDERS: Internal Medicine Cardiovascular Disease; PCP Family Medicine; Referring Provider Nurse Practitioner Family; Visit Provider Nurse Practitioner Family
DX: Z79.01 Long term (current) use of anticoagulants (principal); I48.0 Paroxysmal atrial fibrillation; Z95.2 Presence of prosthetic heart valve; R06.02 Shortness of breath; I35.1 Nonrheumatic aortic (valve) insufficiency; Z87.09 Personal history of other diseases of the respiratory system; Z51.81 Encounter for therapeutic drug level monitoring; Z79.899 Other long term (current) drug therapy
CPT/HCPCS: 36415; 71046; 80053; 85610; 93306

== ENCOUNTER 2025-02-27 07:28 | Emergency (ER) | payer MEDICARE, OTHER, SELFPAY ==
[2025-02-27 07:29] VITALS: BP 101/47; PULSE 75; RESP 18; TEMP 36.8; O2SAT 98; BMI 29.1
--- NOTE | 2025-02-27 07:44 | ED.VIS.LOWEX ---
HPI History of Present Illness Chief Complaint: Laceration Informant: patient Narrative Narrative: Patient is a 79-year-old male with history of pulmonic valve replacements, atrial fibrillation, long-term anticoagulation on Coumadin presenting for wound from the top of his left foot. Patient states he noticed his foot was bleeding this morning. He thinks his Might of scratched him. Could not get the bleeding to stop as it seems to be coming from a varicose vein. Came in for further evaluation. Otherwise states that he has been in his normal state of health and has no complaints at this time. Does not know when his last INR check was. 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 Gastrointestinal bleed Post traumatic stress disorder Panic disorder Anxiety Streptococcal endocarditis Colovesical fistula Anxiety disorder History of endocarditis Home Medications Medication Instructions Recorded Last Taken Type ferrous sulfate 325 mg (65 mg 325 mg PO LUNCH suppliment #30 tabs 05/04/23 Unknown Rx iron) tablet (FeroSul) melatonin 10 mg capsule 10 mg PO QHS SLEEP 30 days #0 caps 05/04/23 04/24/23 Rx duloxetine 60 mg capsule,delayed 60 mg PO DAILY DEPRESSION #90 caps 12/24/23 01/21/24 Rx release ascorbic acid (vitamin C) 500 mg 500 mg PO DAILY suppliment 01/19/24 Unknown History tablet (C-500) b12 gummy 1 gummy PO DAILY suppliment 01/26/24 Unknown History warfarin 5 mg tablet 5 mg PO DAILY #90 TABLETS 08/28/24 Unknown Rx lorazepam 0.5 mg tablet 0.5 mg PO BID PRN anxiety 11/10/24 Unknown History furosemide 40 mg tablet 40 mg PO BID #30 tabs 11/11/24 Unknown Rx metoprolol tartrate 50 mg tablet 50 mg PO BID BLOOD PRESSURE #180 11/27/24 Unknown Rx TABLETS warfarin 1 mg tablet 1 mg PO .COMPLEX BLOOD THINNER 12/22/24 Unknown Rx #180 tabs Allergy/AdvReac Type Severity Reaction Status Date / Time fentanyl Allergy Severe Other Verified 12/16/24 11:50 levofloxacin AdvReac Severe Passed out Verified 12/16/24 11:50 Family History Father CAD (coronary artery disease) Heart disease Hypertension Myocardial infarction Mother Rheumatic fever Heart disease Surgical History H/O pulmonic valve replacement History of colonoscopy (~04/2023) History of mechanical aortic valve replacement History of herniorrhaphy History of colon resection History of prosthetic heart valve (02/03/97) Social History household members: none Smoking Status: Former smoker how long ago did patient quit smokin years ago alcohol intake: current alcohol intake frequency: holidays/special occasions only Alcohol type: beer details: social caffeine: Yes Type: coffee Number of servings: 1 ROS ROS ED Constitutional Constitutional ED: Reports other Details: Denies lightheadedness ; Denies chills or fever(s) Musculoskeletal Musculoskeletal: Denies arthralgias or myalgias Integumentary Reports other Details: Small abrasion of the top of the left foot over a varicose vein that is bleeding. Varicose veins present Hematologic/Lymphatic Hematologic/Lymphatic: Reports easy bleeding and easy bruising EXAM Physical Exam Const Vital Signs: 02/27/25 07:29 Temperature 98.2 F Temperature Source Oral Pulse Rate 75 Respiratory Rate 18 Blood Pressure 101/47 L Blood Pressure Mean 65 Pulse Ox 98 Oxygen Delivery Method Nasal Cannula Oxygen Flow Rate (L/min) 2 Positive well nourished and well developed General Appearance ED: well developed and NAD HEENT Reports moist mucous membranes Chest Wall inspection of chest normal Resp normal respiratory effort Cardio regular rate and regular rhythm Cardio Narrative: Clicking murmur present Extremity Extremity Narrative: Chronic venous stasis changes of the legs. No pedal edema present. Neuro oriented x3 and moves all extremities Sensorium / Orientation: alert Motor Exam: Negative for general weakness Psych mental status grossly normal Skin Skin Narrative: Pinpoint abrasion with significant brisk bleeding (nonpulsatile) present over the dorsal aspect of the left midfoot. No other associated wounds. MDM MDM MDM Narrative Medical decision making narrative: Patient evaluated for bleeding wound to the dorsum of the left foot. Complicated by anticoagulation. Will check H&H as well as INR to ensure he is not supratherapeutic or acutely anemic. Direct pressure applied with Surgicel with cessation of bleeding however after discussion with patient we will also place a [id number] stitch to further assure the bleeding does not recur especially as he lives home alone. Area injected with lidocaine with epinephrine, bleeding did restart once bandage was removed. Single [id number] stitch using 4-0 Ethilon placed with cessation of bleeding and good hemostasis. Patient's hemoglobin is mildly low at 12 but this is his baseline. INR is therapeutic at 3.2. Patient be discharged home. Is given his morning dose of lorazepam per his request. Lab Data Attestation: I reviewed the patient's lab results. Labs: Laboratory Results - last 24 hr 02/27/25 07:40 Hgb 12.0 L Hct 34.9 L PT 33.2 H INR 3.2 Discharge Plan Triage Chief Complaint: Laceration ED Provider: Reina Carey Dx/Rx/DC Orders Clinical Impression: senior care current use of anticoagulant, Bleeding from varicose veins of left lower extremity Instructions: ED Laceration, Foot: All Closures, ED Varicose Veins Prescriptions: No Action lorazepam 0.5 mg tablet 0.5 mg PO BID PRN (Reason: anxiety) ferrous sulfate [FeroSul] 325 mg (65 mg iron) Tablet 325 mg PO LUNCH Qty: 30 0RF melatonin 10 mg capsule 10 mg PO QHS 30 Days Qty: 0 0RF ascorbic acid (vitamin C) [C-500] 500 mg tablet 500 mg PO DAILY b12 gummy 1 gummy PO DAILY duloxetine 60 mg capsule,delayed release(DR/EC) 60 mg PO DAILY Qty: 90 0RF warfarin 5 mg tablet 5 mg PO DAILY Qty: 90 3RF Protocol: Dose Management Condition: Sunday Dose/Route: 6 mg Instruction: 1 x 1 mg tablet, 1 x 5 mg tablet Condition: Sunday Dose/Route: 6 mg Instruction: 1 x 1 mg tablet, 1 x 5 mg tablet Condition: Sunday Dose/Route: 6 mg Instruction: 1 x 1 mg tablet, 1 x 5 mg tablet Condition: Sunday Dose/Route: 6 mg Instruction: 1 x 1 mg tablet, 1 x 5 mg tablet Condition: Dose/Route: 6 mg Instruction: 1 x 1 mg tablet, 1 x 5 mg tablet Condition: Sunday Dose/Route: 6 mg Instruction: 1 x 1 mg tablet, 1 x 5 mg tablet Condition: Sunday Dose/Route: 6 mg Instruction: 1 x 1 mg tablet, 1 x 5 mg tablet Protocol Text: Adjustment Start Date: Sunday12/16/24 INR Value: 2.8 INR Date: 12/16/24 Recheck Date: 01/15/25 furosemide 40 mg tablet 40 mg PO BID Qty: 30 0RF metoprolol tartrate 50 mg tablet 50 mg PO BID Qty: 180 3RF Rx Instructions: TAKE 1 TABLET BY MOUTH TWICE A DAY warfarin 1 mg tablet 1 mg PO .COMPLEX Qty: 180 3RF Protocol: Dose Management Condition: Sunday Dose/Route: 6 mg Instruction: 1 x 1 mg tablet, 1 x 5 mg tablet Condition: Sunday Dose/Route: 6 mg Instruction: 1 x 1 mg tablet, 1 x 5 mg tablet Condition: Sunday Dose/Route: 6 mg Instruction: 1 x 1 mg tablet, 1 x 5 mg tablet Condition: Sunday Dose/Route: 6 mg Instruction: 1 x 1 mg tablet, 1 x 5 mg tablet Condition: Dose/Route: 6 mg Instruction: 1 x 1 mg tablet, 1 x 5 mg tablet Condition: Sunday Dose/Route: 6 mg Instruction: 1 x 1 mg tablet, 1 x 5 mg tablet Condition: Sunday Dose/Route: 6 mg Instruction: 1 x 1 mg tablet, 1 x 5 mg tablet Protocol Text: Adjustment Start Date: Sunday12/16/24 INR Value: 2.8 INR Date: 12/16/24 Recheck Date: 01/15/25 Rx Instructions: daily with a 5mg tablet to = 6 mg: dose changes often Primary Care Provider: Donaldo Larson Referrals: Donaldo Larson DO [Primary Care Provider, Family Practice] Activity Restrictions/Additional Instructions: Your INR was 3.2 today. Follow-up with your family doctor for further titration of your warfarin dosage. 1 suture was placed in your foot. Needs to be removed in approximately 2 weeks. This can be done by your family doctor. If you have further bleeding it does not resolve with direct pressure please return to the emergency room. Print Language: Icelandic Disposition Disposition: Home, Self Care
[2025-02-27] MEDS: Lidocaine 1% /Epi 1:100 (20ml) 20 ML Vial 5 ML INFILT (07:48)
[2025-02-27 07:50] LABS: Hematocrit 34.9 % (40-54); Hemoglobin 12.0 g/dL (13.0-16.5)
[2025-02-27 08:03] LABS: Prothrombin Time (Protime)PT. 33.2 SECONDS (11.7-14.9)
[2025-02-27 09:10] VITALS: BP 102/51; PULSE 68; RESP 18; TEMP 37.1; O2SAT 100
== END 2025-02-27 09:22 | disposition home or self-care (01) ==
PROVIDERS: Emergency Provider Emergency Medicine; PCP Family Medicine; Visit Provider Emergency Medicine
DX: I83.892 Varicose veins of left lower extremity with other complications (principal); I48.0 Paroxysmal atrial fibrillation; Z79.01 Long term (current) use of anticoagulants; E78.00 Pure hypercholesterolemia, unspecified; I10 Essential (primary) hypertension; Z87.891 Personal history of nicotine dependence; Z95.2 Presence of prosthetic heart valve; F41.9 Anxiety disorder, unspecified; Z79.899 Other long term (current) drug therapy
CPT/HCPCS: 12001; 85014; 85018; 85610; 99283; A4216

== ENCOUNTER 2025-05-12 19:46 | Emergency (ER) | payer MEDICARE, OTHER, SELFPAY ==
[2025-05-12 19:47] VITALS: BP 117/65; PULSE 80; RESP 16; TEMP 36.8; O2SAT 99
--- NOTE | 2025-05-12 20:08 | EX.ED.DYSGE1 ---
HPI History of Present Illness Chief Complaint: Lower Extremity Injury Narrative Narrative: Patient is 80-year-old male past medical history of paroxysmal atrial fibrillation on warfarin, hypercholesteremia, hypertension, anxiety, chronically on nasal cannula who presented to the emergency department with a chief complaint of the bleeding from his right foot. He states that he went to go to the bathroom and notes that while he was on the toilet he noted that his shoe became wet took his shoe off and noted that the main from his right foot on the top was bleeding. He states that this happened in the past on his left foot where he had to have a stitch placed and was sent home. Patient otherwise has no complaints and feels at his baseline. 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 Gastrointestinal bleed Post traumatic stress disorder Panic disorder Anxiety Streptococcal endocarditis Colovesical fistula Anxiety disorder History of endocarditis Home Medications ?Medication ?Instructions ?Recorded ?Last Taken ?Type ferrous sulfate 325 mg (65 mg 325 mg PO LUNCH suppliment #30 tabs 05/04/23 Unknown Rx iron) tablet (FeroSul) melatonin 10 mg capsule 10 mg PO QHS SLEEP 30 days #0 caps 05/04/23 04/24/23 Rx duloxetine 60 mg capsule,delayed 60 mg PO DAILY DEPRESSION #90 caps 12/24/23 01/21/24 Rx release ascorbic acid (vitamin C) 500 mg 500 mg PO DAILY suppliment 01/19/24 Unknown History tablet (C-500) b12 gummy 1 gummy PO DAILY suppliment 01/26/24 Unknown History warfarin 5 mg tablet 5 mg PO DAILY #90 TABLETS 08/28/24 Unknown Rx lorazepam 0.5 mg tablet 0.5 mg PO BID PRN anxiety 11/10/24 Unknown History furosemide 40 mg tablet 40 mg PO BID #30 tabs 11/11/24 Unknown Rx metoprolol tartrate 50 mg tablet 50 mg PO BID BLOOD PRESSURE #180 11/27/24 Unknown Rx TABLETS warfarin 1 mg tablet 1 mg PO .COMPLEX BLOOD THINNER 12/22/24 Unknown Rx #180 tabs Allergy/AdvReac Type Severity Reaction Status Date / Time fentanyl Allergy Severe Other Verified 05/12/25 19:48 levofloxacin AdvReac Severe Passed out Verified 05/12/25 19:48 Family History Father CAD (coronary artery disease) Heart disease Hypertension Myocardial infarction Mother Rheumatic fever Heart disease Surgical History H/O pulmonic valve replacement History of colonoscopy (~04/2023) History of mechanical aortic valve replacement History of herniorrhaphy History of colon resection History of prosthetic heart valve (02/03/97) Social History household members: none Smoking Status: Former smoker how long ago did patient quit smokin years ago alcohol intake: current alcohol intake frequency: holidays/special occasions only Alcohol type: beer details: social caffeine: Yes Type: coffee Number of servings: 1 ROS ROS ED ROS Narrative Constitutional: Denies lightheadedness dizziness Neurological: Denies numbness, tingling Skin: Complains of bleeding from the right foot denies any injury or trauma EXAM Physical Exam Narrative Exam Narrative: General: Patient was lying bed rest comfortably did not appear to be in acute distress Head: Atraumatic, normocephalic Eyes: PERRL bilaterally, EOMI bilaterally, no conjunctival injection noted Neck: Soft and supple, trachea midline Cardiovascular: Regular rate Extremities: DP pulses +2/4 in the right lower extremity. Pressure dressing removed and did not have any active bleeding here in the emergency department Neurological: Patient following commands knew that he was at [facility] years 2024 Skin: Warm, dry, intact no rashes or lesions noted Const Vital Signs: 05/12/25 19:47 Temperature 98.3 F Temperature Source Oral Pulse Rate 80 Respiratory Rate 16 Blood Pressure 117/65 Blood Pressure Mean 82 Pulse Ox 99 Oxygen Delivery Method Nasal Cannula Oxygen Flow Rate (L/min) 2 MDM MDM MDM Narrative Medical decision making narrative: Patient is a 80-year-old male who presented to the emergency department the chief complaint of bleeding coming from his right foot. On the differential diagnose includes but not limited to supratherapeutic INR, hypertension, bleeding vein. I did take down the dressing and he has no active bleeding at this point in time he will be observed we will check an INR. Patient's INR therapeutic at 3. Patient ambulated well here in the emergency department and had no further bleeding afterwards and he has not had any bleeding since arriving to the emergency department. He was advised to follow-up his doctor in outpatient and return with worsening symptoms or concerns. All course concerns answered is discharged home in stable condition Lab Data Labs: Laboratory Results - last 24 hr 05/12/25 20:24 PT 32.2 H INR 3.0 Discharge Plan Triage Chief Complaint: Lower Extremity Injury ED Provider: Gonzalo Winkler Dx/Rx/DC Orders Clinical Impression: Bleeding from varicose veins of left lower extremity, Essential hypertension, Paroxysmal atrial fibrillation Prescriptions: No Action lorazepam 0.5 mg tablet 0.5 mg PO BID PRN (Reason: anxiety) ferrous sulfate [FeroSul] 325 mg (65 mg iron) Tablet 325 mg PO LUNCH Qty: 30 0RF melatonin 10 mg capsule 10 mg PO QHS 30 Days Qty: 0 0RF ascorbic acid (vitamin C) [C-500] 500 mg tablet 500 mg PO DAILY b12 gummy 1 gummy PO DAILY duloxetine 60 mg capsule,delayed release(DR/EC) 60 mg PO DAILY Qty: 90 0RF warfarin 5 mg tablet 5 mg PO DAILY Qty: 90 3RF Protocol: Dose Management Condition: Sunday Dose/Route: 6 mg Instruction: 1 x 1 mg tablet, 1 x 5 mg tablet Condition: Sunday Dose/Route: 6 mg Instruction: 1 x 1 mg tablet, 1 x 5 mg tablet Condition: Sunday Dose/Route: 6 mg Instruction: 1 x 1 mg tablet, 1 x 5 mg tablet Condition: Sunday Dose/Route: 6 mg Instruction: 1 x 1 mg tablet, 1 x 5 mg tablet Condition: Dose/Route: 6 mg Instruction: 1 x 1 mg tablet, 1 x 5 mg tablet Condition: Sunday Dose/Route: 6 mg Instruction: 1 x 1 mg tablet, 1 x 5 mg tablet Condition: Sunday Dose/Route: 6 mg Instruction: 1 x 1 mg tablet, 1 x 5 mg tablet Protocol Text: Adjustment Start Date: Sunday12/16/24 INR Value: 2.8 INR Date: 12/16/24 Recheck Date: 01/15/25 furosemide 40 mg tablet 40 mg PO BID Qty: 30 0RF metoprolol tartrate 50 mg tablet 50 mg PO BID Qty: 180 3RF Rx Instructions: TAKE 1 TABLET BY MOUTH TWICE A DAY warfarin 1 mg tablet 1 mg PO .COMPLEX Qty: 180 3RF Protocol: Dose Management Condition: Sunday Dose/Route: 6 mg Instruction: 1 x 1 mg tablet, 1 x 5 mg tablet Condition: Sunday Dose/Route: 6 mg Instruction: 1 x 1 mg tablet, 1 x 5 mg tablet Condition: Sunday Dose/Route: 6 mg Instruction: 1 x 1 mg tablet, 1 x 5 mg tablet Condition: Sunday Dose/Route: 6 mg Instruction: 1 x 1 mg tablet, 1 x 5 mg tablet Condition: Dose/Route: 6 mg Instruction: 1 x 1 mg tablet, 1 x 5 mg tablet Condition: Sunday Dose/Route: 6 mg Instruction: 1 x 1 mg tablet, 1 x 5 mg tablet Condition: Sunday Dose/Route: 6 mg Instruction: 1 x 1 mg tablet, 1 x 5 mg tablet Protocol Text: Adjustment Start Date: Sunday12/16/24 INR Value: 2.8 INR Date: 12/16/24 Recheck Date: 01/15/25 Rx Instructions: daily with a 5mg tablet to = 6 mg: dose changes often Primary Care Provider: Donaldo Larson Referrals: Donaldo Larson DO [Primary Care Provider, Family Practice] Activity Restrictions/Additional Instructions: Your INR is therapeutic at 3. Follow-up your doctor in outpatient setting return with worsening symptoms or any other concerns Print Language: Romansh Disposition Disposition: Home, Self Care
--- OUTSIDE RECORDS SUMMARY | 2025-05-12 20:18 | XMS RPT_ITS | CCD ---
Author Organization [facility] CliniSysd Care Team Providers Care Global Analytics Head Name Role Phone Kalie RN, Renee Krishnamurthy Unavailable [phone] Roula, IVY, Lori Veloz Unavailable Unavailabl e [...] GLASER Referring Unavailable PROVIDER, UNKNOWN Attending Unavailable KLUDEEP PAINTING Admitting Unavailable LUIS GLASER Referring Unavailable [...] IP CARDIOLOGY Consulting Unavailab le REQUEST, IP LAYER OFF SERVICE Consulting Unavaila ble PROVIDER, UNKNOWN Attending [...] Unavailable Louie Burns DO Primary Care Provider Nidia Hernandez MD Unavailable Michael Maldonado MD Unavailable Alyssa Berger [facility], Jeff Tierney Unavailable Un available Heydi TORRES, PhD, Kelvin Krishnamurthy Unavailable Asha Bundy MD Unavailable LOUIE BURNS Primary Care Unavailable SELF, SELF Referring Unavailable DAYNA CHAPMAN Attending Unavailable ASHA BUNDY Attending Unavailable LOUIE BURNS Primary Care Unavailable SELF, SELF Referring Unavailable ASHA BUNDY Referring Unavailable ASHA BUNDY Attending Unavailable LOUIE BURNS Primary Care Unavailable LOUIE BURNS Primary Care Unavailable WILEY COVINGTON Referring Unavailable WILEY COVINGTON Attending Unavailable Krys Bull Admitting Unavailable Krys Bull Consulting Unavailable Louie Burns Primary Care Unavailable Zhang Florentino Attending Unavailable Chadd, Zhang Consulting Unavailable WhiteKrys Attending Unavailable Braden Coto Attending Unavailable JoBraden westbrook Consulting Unavailable Marsha, Louie Primary Care Unavailable Roof SEAL MIXING OPERATOR, Kuldeep H Attending Unavailable Marsha, Louie Referring Unavailable Roof SEAL MIXING OPERATOR, Kuldeep H Attending Unavailable Marsha, Louie Primary Care Unavailable Marsha, Louie Referring Unavailable Marsha, Louie Primary Care Unavailable Michael Maldonado Attending Unavailable Marsha, Louie Attending Unavailable Marsha, Louie Primary Care Unavailable Marsha, Louie Primary Care Unavailable CarmonaRoberto Attending Unavailable Roof SEAL MIXING OPERATOR, Kuldeep H Referring Unavailable Roof SEAL MIXING OPERATOR, Kuldeep H Attending Unavailable Marsha, Louie Primary Care Unavailable Roof SEAL MIXING OPERATOR, Kuldeep H Referring Unavailable Roof SEAL MIXING OPERATOR, Kuldeep H Attending Unavailable Marsha, Louie Primary Care Unavailable Marsha, Louie Attending Unavailable Marsha, Louie Primary Care Unavailable Marsha, Louie Referring Unavailable Marsha, Louie Attending Unavailable Marsha, Louie Primary Care Unavailable Marsha, Louie Referring Unavailable White, Krys L Admitting Unavailable WhiteKrys L Consulting Unavailable Marsha, Louie Primary Care Unavailable Braden Coto Attending Unavailable Chadd, Zhang Consulting Unavailable Roof SEAL MIXING OPERATOR, Kuldeep H Attending Unavailable Marsha, Louie Primary Care Unavailable Roof SEAL MIXING OPERATOR, Kuldeep H Referring Unavailable Marsha, Louie Attending Unavailable Marsha, Louie Primary Care Unavailable Marsha, Louie Referring Unavailable Marsha, Louie Primary Care Unavailable Jeancarlos Ritter Attending Unavailable Reina Carey Attending Unavailable Marsha, Louie Primary Care Unavailable Allergies Allergy Classification Reported Allergen(s) Allergy Type Date of Onset Reaction(s) Facility (18 sources) levoFLOXacin; Translations: [levofloxacin] drug allergy 3 passed out [facility] Work Phone: (4 sources) ALPRAZolam; Translations: [ALPRAZOLAM] Drug Allergy 1 [facility] (1 source) fentaNYL Drug Allergy 4 Hallucination [facility] (1 source) fentaNYL Drug Allergy 5 [facility] Repository Medications Current Medications Medication Drug Class(es) [...] one po q 24 H DULOXETINE HCL [id number] Jovana Parmar MD ferrous sulfate 325 mg [...] Start: 09-20-2010 take 1 tablet by grisel twice daily LOPRESSOR 50 MG TABS One tablet by mouth twice daily METOPROLOL TARTRATE [id number] Markus Tran MD Potassium Chloride (4 sources) [...] MG CR-TABS q 6 hrs prn ACETAMINOPHEN [id number] Keesha José LPN ALPRAZolam 0.5 mg oral tablet (20 sources) Benzodiazepine Start: 11-07-2016 XANAX 0.5 MG T ABS as needed ALPRAZOLAM [id number] Renee Wylie PA-C End: 08-21-2016 ALPRAZOLAM 0.5 MG TABS three times a day prn ALPRAZOLAM [id number] Keesha José LPN amiodarone hydrochloride 200 mg oral tablet (2 sources) Antiarrhythmic Start: 06-07-2023 End: 06-13-2023 AMIOdarone (PACERONE) tablet 200 mg 12 hr amoxicillin 1000 mg / clavulanate 62.5 mg extended release oral tablet (20 sources) Penicillin-class Antibacterial Start: 11-08-2016 take 1 tablet by mouth twice daily AUGMENTIN XR 1000-62.5 MG [id number] One tablet by mouth twice daily AMOXICILLIN-POT CLAVULANATE [id number] Renee Wylie PA-C Start: 11-08-2016 take 1 tablet by grisel th twice daily AUGMENTIN XR 1000-62.5 MG [id number] One tablet by mouth twice daily AMOXICILLIN-POT CLAVULANATE [id number] Renee Wylie PA-C Start: 11-08-2016 take 1 tablet by grisel th twice daily AUGMENTIN XR 1000-62.5 MG [id number] One tablet by mouth twice daily AMOXICILLIN-POT CLAVULANATE [id number] Renee Wylie PA-C Start: 08-07-2016 End: 10-06-2016 take 1 tablet by mouth once AMOXICILLIN-POT CLAVULANAT E 875-125 MG TABS one po q12 AMOXICILLIN-POT CLAVULANATE [id number] Jovana Parmar MD aspirin 81 mg delayed release oral tablet (20 sources) Nonsteroidal Anti-inflammatory Drug Start: 09-20-2010 End: 08-20-2013 take 1 tablet by mouth once daily ECOTRIN LOW STRENGTH 81 MG TBEC One tablet by mouth daily ASPIRIN [id number] Markus Tran MD Start: 09-20-2010 End: 08-20-2013 take 1 tablet by mouth once daily ECOTRIN LOW STRENGTH 81 MG TBEC One tablet by mouth daily ASPIRIN [id number] Markus Tran MD benzocaine 140 mg/ml / [...] One tablet by mouth daily CITALOPRAM HYDROBROMIDE [id number] Renee Wylie PA-C ertapenem 1000 mg injection (20 sources) Penem Antibacterial End: 08-07-2016 INVANZ 1 GM SOLR q 24 hrs ERTAPENEM SODIUM [id number] Finesse Stover Sisi MA End: 08-07-2016 INVANZ 1 GM SOLR q 24 hrs 20 18/08/05 ERTAPENEM SODIUM 91332177023 Finesse S Sisi MA INVANZ 1 GM SOLR q 24 hrs ERTAPENEM SODIUM [id number] Keesha José LPN INVANZ 1 GM SOLR q 24 hrs ERTAPENEM SODIUM [id number] Keesha José LPN End: 08-07-2016 INVANZ 1 GM SOLR q 24 hrs 20 18/08/05 ERTAPENEM SODIUM [id number] Finesse S Sisi MA Furosemide (4 sources) Loop Diuretic [...] twice daily as needed for anxiety LORAZEPAM [id number] Louie Jailene Marsha Start: 09-20-2010 take 1 tablet by grisel once daily LORAZEPAM 0.5 MG TABS One tablet by mouth daily LORAZEPAM [id number] Susanne Rios melatonin 3 mg oral tablet [...] One tablet by mouth daily PAROXETINE HCL [id number] Keesha José LPN pravastatin sodium 20 mg oral tablet (20 sources) HMG-CoA Reductase Inhibitor Start: 01-17-2012 End: 02-23-2014 take 1 tablet by mouth at bedtime PRAVASTATIN SODIUM 20 MG TABS One tablet by mouth at bedtime PRAVASTATIN SODIUM [id number] Abhijeet Kee MD 1000 ml sodium chloride [...] and Sat. Take 8 mg on . 03/08/2023 Active Start: 03-08-2023 End: 06-18-2023 take 1.5 tablets by mouth once daily Warfarin 1 MG tablet Take 1.5 tablets by mouth daily. Take 6.5 mg daily on Sun, Mon, Tues, Thurs, Fri, and Sat. Take 8 mg on . 0 03/08/2023 06/18/2023 Discontinued (Stop Taking at Discharge) Start: 04-09-2012 COUMADIN 5 MG TABS Take as directed-current dose is 7 mg every X 2 days, 6.5 mg X 5 days per wk WARFARIN SODIUM [id number] Markus Tran MD Start: 09-20-2010 COUMADIN 5 MG TABS Take as directed-current dose is 6 mg daily WARFARIN SODIUM [id number] Renee Wylie PA-C Start: 09-20-2010 COUMADIN 1 MG TABS Take as directed: current dose: take one tablet by mouth daily Sat-Thurs. with a 5mg tablet to equal (6mg) WARFARIN SODIUM [id number] Markus Tran MD Start: 09-20-2010 COUMADIN 1 MG TABS Take as directed WARFARIN SODIUM [id number] Markus Tran MD Problems Active Problems Problem Classification Problem Date Documented Da te Episodic/Chronic Anxiety disorders (20 sources) Anxiety disorder; Translations: [Anxiety] Onset: 5 12-24-2014 Chronic Bacterial infection (20 sources) Infection due to Escherichia coli; Translations: [Bacteremia due to Staphylococcus aureus] Onset: 7 08-07-2016 Episodic Cardiac dysrhythmias (6 sources) Paroxysmal atrial fibrillation; Translations: [Paroxysmal atrial fibrillation] Onset: 4 06-06-2023 Chronic Congestive heart failure; nonhypertensive (1 source) Heart failure, unspecified; Translations: [Heart failure, unspecified] Onset: 5 Chronic Disorders of lipid metabolism (18 sources) Hyperlipidemia; Translations: [Pure hypercholesterolemia, unspecified] Onset: 1 09-20-2010 Chronic Diverticulosis and diverticulitis (20 sources) Diverticulitis of sigmoid colon; Translations: [Diverticulitis of large intestine without perforation or abscess without bleeding] Onset: 7 08-07-2016 Chronic Essential hypertension (1 source) Essential (primary) hypertension; Translations: [Essential (primary) hypertension] Onset: 5 Chronic Heart valve disorders (20 sources) Pulmonic [...] digestive system] Onset: 4 06-06-2023 Episodic Other nutritional; endocrine; and metabolic disorders [...] degeneration, thoracic region] Onset: 5 12-24-2014 Chronic Unclassified (11 sources) Replacement of aortic valve ; Translations: [Presence of prosthetic heart valve] Onset: 6 11-05-2015 Unclassified (6 sources) History of pulmonary valve replacement; Translations: [Presence of prosthetic heart valve] Onset: 6 11-05-2015 Unclassified (1 source) Cough, unspecified; Translations: [Cough, unspecified] Onset: 5 Varicose veins of lower extremity (1 source) Varicose veins of left lower extremity with other complications; Translations: [Varicose veins of left lower extremity with other complications] Onset: Episodic Past or Other Problems Problem Classification Problem Date Documented Date Episodic/Chronic Biliary tract disease (1 source) Calculus of [...] valve prosthesis, initial encounter] Onset: 11-29-2023 Episodic Other aftercare (20 sources) group home (current) use of anticoagulants; Translations: [Long-term (current) use of other medications] Onset: 01-17-2012 04-14-2015 Episodic Other aftercare (2 sources) group home (current) use of antibiotics; Translations: [buttermaker (current) use of antibiotics] Onset: 11-29-2023 Episodic Other aftercare (1 source) Encounter for therapeutic drug level monitoring; Translations: [Encounter for therapeutic drug level monitoring] Onset: 12-16-2024 Episodic Other aftercare (1 source) Other correction (current) drug therapy; Translations: [Other correction (current) drug therapy] Onset: 12-16-2024 Episodic Other circulatory disease (17 sources) History of endocarditis; Translations: [Personal history of other diseases of the circulatory system] Onset: 11-05-2015 11-05-2015 Episodic Other lower respiratory disease (1 source) Personal history of other diseases of the respiratory system; Translations: [Personal history of other diseases of the respiratory system] Onset: 12-16-2024 Episodic Other lower respiratory disease (1 source) Shortness of breath; Translations: [Shortness of breath] Onset: 12-16-2024 Episodic Other lower respiratory disease (1 source) Hypoxemia; Translations: [Hypoxemia] Onset: 08-27-2024 Episodic Other lower respiratory disease (1 source) Dyspnea, unspecified; Translations: [Dyspnea, unspecified] Onset: 09-03-2024 Episodic Other nutritional; endocrine; and metabolic disorders [...] source) Epistaxis; Translations: [Epistaxis] Onset: 06-11-2024 Episodic Ros-; endo-; and myocarditis; cardiomyopathy (except that caused by tuberculosis or sexually transmitted disease) (5 sources) Acute bacterial endocarditis; Translations: [Acute and subacute infective endocarditis] Onset: 06-06-2023 06-13-2023 Episodic Pneumonia (except that caused by tuberculosis or sexually transmitted disease) (1 source) Pneumonia, unspecified organism; Translations: [Pneumonia, unspecified organism] Onset: 08-27-2024 Episodic Residual codes; unclassified (1 source) Edema, unspecified; Translations: [Edema, unspecified] Onset: 12-16-2024 Episodic Septicemia (17 sources) Bacteremia; Translations: [Bacteremia] Onset: 11-05-2015 11-05-2015 Episodic Spondylosis; intervertebral disc disorders; other back problems (5 sources) Chronic back pain ; Translations: [Dorsalgia, unspecified] Onset: 01-11-2017 06-06-2023 Episodic Superficial injury; contusion (1 source) Contusion of left shoulder, initial encounter; Translations: [Contusion of left shoulder, initial encounter] Onset: 10-16-2024 Episodic Unclassified (9 sources) Long-term drug therapy; Translations: [Long-term (current) use of other medications] Onset: 01-17-2012 01-17-2012 Urinary tract infections (18 sources) Urinary tract infectious disease; Translations: [Other cystitis without hematuria] Onset: 08-07-2016 08-07-2016 Episodic Results Test Name Value Interpretation Reference Range Facil ity Emergency Department Summary on 02-27-2025 Emergency Department Summary [facility] Medical Records Department [address] [place] [address] Emergency Department Summary 02/27/25 MR#: [id number] Acct: [id number] Name: MARKUS NAVA Rep #: [id number] : 1945 79 From: Reina Carey DO PCP: Dr. Louie Burns DO Status:DEP ER Location: ED HPI History of Present Illness Chief Complaint: Laceration Informant: patient Narrative Narrative: Patient is a 79-year-old male with history of pulmonic valve replacements, atrial fibrillation, long-term anticoagulation on Coumadin presenting for wound from the top of his left foot. Patient states he noticed his foot was bleeding this morning. He thinks his Might of scratched him. Could not get the bleeding to stop as it seems to be coming from a varicose vein. Came in for further evaluation. Otherwise states that he has been in his normal state of health and has no complaints at this time. Does not know when his last INR check was. 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 Gastrointestinal bleed Post traumatic stress disorder Panic disorder Anxiety Streptococcal endocarditis Colovesical fistula Anxiety disorder History of endocarditis Home Medications ???Medication ???Instructions ???Recorded ???Last Taken ???Type ferrous sulfate 325 mg (65 mg 325 mg PO LUNCH suppliment #30 tab s 05/04/23 Unknown Rx iron) tablet (FeroSul) melatonin 10 mg capsule 10 mg PO QHS SLEEP 30 days #0 caps 05/04/23 04/24/23 Rx duloxetine 60 mg capsule,delayed 60 mg PO DAILY DEPRESSION #90 cap s 12/24/23 01/21/24 Rx release ascorbic acid (vitamin C) 500 mg 500 mg PO DAILY suppliment 4 Unknown History tablet (C-500) b12 gummy 1 gummy PO DAILY suppliment Unknown History warfarin 5 mg tablet 5 mg PO DAILY #90 TABLETS 08/28/24 Unknown Rx lorazepam 0.5 mg tablet 0.5 mg PO BID PRN anxiety 11/10/24 Unknown History furosemide 40 mg tablet 40 mg PO BID #30 tabs 11/11/24 Unk nown Rx metoprolol tartrate 50 mg tablet 50 mg PO BID BLOOD PRESSURE #180 0 11/27/24 Unknown Rx TABLETS warfarin 1 mg tablet 1 mg PO .COMPLEX BLOOD THINNER Unknown Rx #180 tabs Allergy/AdvReac Type Severity Reaction Status Date / Time fentanyl Allergy Severe Other Verified 12/16/24 11:50 levofloxacin AdvReac Severe Passed out Verified 12/16/24 11:50 Family History Father CAD (coronary artery disease) Heart disease Hypertension Myocardial infarction Mother Rheumatic fever Heart disease Surgical History H/O pulmonic valve replacement History of colonoscopy ( 04/2023) History of mechanical aortic valve replacement History of herniorrhaphy History of colon resection History of prosthetic heart valve (02/03/97) Social History household members: none Smoking Status: Former smoker how long ago did patient quit smokin years ago alcohol intake: current alcohol intake frequency: holidays/special occasions only Alcohol type: beer details: social caffeine: Yes Type: coffee Number of servings: 1 ROS ROS ED Constitutional Constitutional ED: Reports other Details: Denies lightheadedness ; Denies chills or fever(s) Musculoskeletal Musculoskeletal: Denies arthralgias or myalgias Integumentary Reports other Details: Small abrasion of the top of the left foot over a varicose vein that is bleeding. Varicose veins present Hematologic/Lymphatic Hematologic/Lymphatic : Reports easy bleeding and easy bruising EXAM Physical Exam Const Vital Signs: 02/27/25 07:29 Temperature 98.2 F Temperature Source Oral Pulse Rate 75 Respiratory Rate 18 Blood Pressure 101/47 L Blood Pressure Mean 65 Pulse Ox 98 Oxygen Delivery Method Nasal Cannula Oxygen Flow Rate (L/min) 2 Positive well nourished and well developed General Appearance ED: well developed and NAD HEENT Reports moist mucous membranes Chest Wall inspection of chest normal Resp normal respiratory effort Cardio regular rate and regular rhythm Cardio Narrative: Clicking murmur present Extremity Extremity Narrative: Chronic venous stasis changes of the le (more content not included)... Normal [facility] HH, Hemoglobin AND Hematocri ton 02-27-2025 Hematocrit (Bld) [Volume fraction] 34.9 % Low 40-54 [facility] Comment on above: Performed By: #### L 100.0100, L500.2500 #### [facility] Laboratory [address] [place], [address] Hemoglobin (Bld) [Mass/Vol] 12.0 g/dL Low 13.0-16.5 [facility] Comment on above: Performed By: #### L 100.0100, L500.2500 #### [facility] [address] [place], [address] Prothrombin Time w/INRon INR Coag (PPP) [Relative time] 3.2 {INR} Normal [facility] Comment on above: Performed By: #### L 100.0100, L500.2500 #### [facility] [address] [place], [address] PT Coag (PPP) [Time] 33.2 s High 11.7-14.9 [facility] Comment on above: Performed By: #### L 100.0100, L500.2500 #### [facility] [address] [place], [address] Cardiology Visit Reporton Cardiology Visit Report [facility] [address] [place] [address] OFFICE VISIT Date of Service: 12/16/24 MR#: [id number] Acct: [id number] Name: MARKUS NAVA Rep #: [id number] : 1945 Provider: JD daly Age/Sex: 79/M Location: [facility] [place] Status: Signed HPI HPI History of Present Illness Details: MARKUS NAVA, is a 79 year old white male who presents to the office today for a cardiovascular outpatient follow-up with a history of underlying aortic valve disease with aortic valve replacement with a pulmonary autograft aortic valve replacement with reconstruction of the right ventricular outflow tract using a 28 mm pulmonary homograft (1996) and subsequently status post a modified Bentyl/Ross procedure using a 25 mm [place] Hemashield composite graft (2001). This is superimposed upon a history of hypertension, PAF, and hyperlipidemia. As you recall, he was admitted to [facility] on 04/05/2021 for respiratory failure due to choking on a piece of chicken. An EGD was performed, food impaction was noted as well as distal esophageal ulcer which was clipped: Patient was intubated for the EGD, and he remained intubated overnight- he had 2 episodes of wide-complex tachycardia for which he was defibrillated on 2 occasions-he received amiodarone bolus, and amiodarone IV drip. EP consulted with him, and it was determined patient's wide complex tachycardia was due to his sinus tachycardia with right bundle branch block in the setting of respiratory distress. 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 He was discharged for home IV antibiotic therapy with plans to return to [facility] for FER. He denies chest, arm, jaw, or neck discomfort. He denies palpitations. He states bilateral lower extremity edema. He denies claudication. He denies shortness of breath with activity, shortness of breath at rest, orthopnea, or PND. He denies chronic cough. He denies significant, sudden weight gain. He denies lightheadedness, dizziness, near-syncope, or syncope. He denies blood in urine, blood in stool, or epistaxis. He denies fever with chills. He denies myalgia. He denies fatigue. He states his weakness is improving. His exercise level has remained stable. Intake Vital Signs 11/10/24 09:51 12/16/24 11:46 Height 6 ft 6 ft Weight: 231 lb 214 lb BMI 31.3 29.0 BP 120/68 124/71 H Blood Pressure Location Rt brachial Lt brachial Position Sitting Sitting Respiration 20 H 16 Pulse 70 79 Pulse Source Monitor NIBP Pulse Oximetry (%) 95 Oxygen Delivery Method nasal canula Oxygen Flow Rate (L/min) 2 Intake Visit Reasons: 4-6 W FU Flag Signalman Required: No Is patient in pain?: No Allergies fentanyl Allergy (Severe, Verified 12/16/24 11:50) Other levofloxacin Adverse Reaction (Severe, Verified 12/16/24 11:50) Passed out Medications ???Medication ???Instructions ???Recorded ???Confirmed ???Type ferrous sulfate 325 mg (65 mg 325 mg PO LUNCH suppliment #30 tab s 05/04/23 12/16/24 Rx iron) tablet (FeroSul) melatonin 10 mg capsule 10 mg PO QHS SLEEP 30 days #0 caps 05/04/23 12/16/24 Rx warfarin 1 mg tablet 1 mg PO .COMPLEX BLOOD THINNER 12/16/24 Rx #180 tabs duloxetine 60 mg capsule,delayed 60 mg PO DAILY DEPRESSION #90 cap s 12/24/23 12/16/24 Rx release ascorbic acid (vitamin C) 500 mg 500 mg PO DAILY suppliment 4 12/16/24 History tablet (C-500) b12 gummy 1 gummy PO DAILY suppliment 12/16/24 History warfarin 5 mg tablet 5 mg PO DAILY #90 TABLETS 08/28/24 12/16/24 Rx lorazepam 0.5 mg tablet 0.5 mg PO BID PRN anxiety 11/10/24 12/16/24 History furosemide 40 mg tablet 40 mg PO BID #30 tabs 11/11/24 Rx metoprolol tartrate 50 mg tablet 50 mg PO BID BLOOD PRESSURE #180 0 11/27/24 12/16/24 Rx TABLETS Ejection fraction %: 50 Have you fallen in the past year?: Yes [facility] Medical History History of endocarditis Paroxysmal atrial fibrillation buttermaker current use of anticoagulant Pure hypercholesterolemia Essential hypertension Nonrheumatic aortic (valve) insufficiency Bacteremia Pleural effusion, right History of Clostridioides difficile colitis Crohn's disease History of atrial fibrillation Hiatal hernia Incisional hernia Diverticulitis Scarlet fever Kidney stones Anemia 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 Normal [facility] Chest PA and Lateralon 12-16 Chest PA and Lateral [facility] Imaging Services [address] [place], [place] [id number] Chest PA and Lateral MR#: [id number] Acct: [id number] Name: MARKUS NAVA Rep #: [id number] : 1945 M 79 From: Louie Ritter MD PCP: Dr. Louie Burns DO Status: REG CLI Study: Chest PA and Lateral Date of Exam: 12/16/24 Exam# [id number] Ordering Dr: Kuldeep Austin NP SEAL MIXING OPERATOR-Deborah EXAM: XR Chest, 2 Views CLINICAL INDICATION: RE-EVALUTE PLEURAL EFFUSION AFTER LASIX TECHNIQUE: Frontal and lateral views of the chest. COMPARISON: XR Chest dated 11/10/2024 FINDINGS: LUNGS AND PLEURAL SPACES: Small bilateral pleural effusions, decreased since the prior exam. No consolidation. No pneumothorax. HEART: Unremarkable. No cardiomegaly. MEDIASTINUM: Unremarkable. Normal mediastinal contour. BONES/JOINTS: Unremarkable. No acute fracture. RAD/Chest PA and Lateral IMPRESSION: Small bilateral pleural effusions, decreased since the prior exam. Reading Location: [facility] CC: SEAL MIXING OPERATOR-C Kuldeep Austin; Dr. Louie Burns DO Lay Out Drafter: Signed Normal [facility] Comprehensive Metabolic Prof ilon 12-16-2024 Albumin [Mass/Vol] 4.1 g/dL Normal 3.4-4.8 [facility] Comment on above: Performed By: #### L 500.4050 ####[facility] [address] [place], [place], [id number] Albumin/Globulin [Mass ratio] 0.9 {ratio} Normal 0.9-2.4 [facility] Comment on above: Performed By: #### L 500.4050 ####[facility] [address] [place], [address] ALK PHOS 148 U/L High 40-129 [facility] Comment on above: Performed By: #### L 500.4050 ####[facility] [address] [place], [address] ALT [Catalytic activity/Vol] 25 U/L Normal <=46 [facility] Comment on above: Performed By: #### L 500.4050 ####[facility] [address] [place], [address] AST [Catalytic activity/Vol] 52 U/L High <=37 [facility] Comment on above: Result Comment: Hemo lysis present, Results??could be affected. ?? Performed By: #### L 500.4050 ####[facility] [address], [address] Bilirubin [Mass/Vol] 0.60 mg/dL Normal 0.00-1.30 [facility] Comment on above: Performed By: #### L 500.4050 ####[facility] [address] [place], [address] BUN/CRE 21.9 RATIO High 10-20 [facility] Comment on above: Performed By: #### L 500.4050 ####[facility] [address] [place], [address] Calcium [Mass/Vol] 9.7 mg/dL Normal 7.6-11.0 [facility] Comment on above: Performed By: #### L 500.4050 ####[facility] [address] [place], [address] Chloride [Moles/Vol] 99 mmol/L Normal 98-108 [facility] Comment on above: Performed By: #### L 500.4050 ####[facility] [address] [place], [address] CO2 [Moles/Vol] 27.2 mmol/L Normal 21.0-32.0 [facility] Comment on above: Performed By: #### L 500.4050 ####[facility] [address], [address] Creatinine [Mass/Vol] 1.26 mg/dL High 0.70-1.20 [facility] Comment on above: Performed By: #### L 500.4050 ####[facility] [address] [place], [address] GAP 11 Normal 5-15 [facility] Comment on above: Performed By: #### L 500.4050 ####[facility] [address], [address] GFR/1.73 sq M.predicted among non-blacks MDRD (S/P/Bld) [Vol rate/Area] 58 mL/min/{1.73_m2} Low >60 [facility] Comment on above: Result Comment: mL/m in/1.73m2 CKD-EPI Creatinine Equation (2020) Performed By: #### L 500.4050 ####[facility] [address] [place], [address] Globulin (S) [Mass/Vol] 4.5 g/dL High 2.2-4.2 [facility] Comment on above: Performed By: #### L 500.4050 ####[facility] [address] [place], [address] Glucose [Mass/Vol] 84 mg/dL Normal 70-99 [facility] Comment on above: Performed By: #### L 500.4050 ####[facility] [address] [place], [address] Potassium [Moles/Vol] 4.3 mmol/L Normal 3.3-5.1 [facility] Comment on above: Result Comment: Hemo lysis present, Results??could be affected. ?? Performed By: #### L 500.4050 ####[facility] [address], [address] Sodium [Moles/Vol] 137 mmol/L Normal 133-145 [facility] Comment on above: Performed By: #### L 500.4050 ####[facility] [address] [place], [place], [id number] T PROT 8.5 g/dL High 5.9-8.4 [facility] Comment on above: Performed By: #### L 500.4050 ####[facility] [address] [place], [place], [id number] Urea nitrogen [Mass/Vol] 28 mg/dL High 4-19 [facility] Comment on above: Performed By: #### L 500.4050 ####[facility] [address] [place], [place], [address] Echo Completeon 12-16-2024 Echo Complete [facility] [address] [place] [address] Echo Complete 12/16/24 0134 MR#: [id number] Acct: [id number] Name: MARKUS NAVA Rep #: [id number] : 1945 79 From: Michael Maldonado MD Attending Dr: JD June Status: REG CLI Ordering Dr: Kuldeep Austin SEAL MIXING OPERATOR SEAL MIXING OPERATOR-C Date: 12/16/24 Location: [facility] Sex: M C Admitted: Reason For Study Reason For Study: Dyspnea/SOB Procedure This was a 2D Doppler, Color Flow transthoracic echocardiogram. Exam performed in department. Left Ventricle Normal LV size. Left ventricular systolic function is normal. The left ventricular ejection fraction is 55 %. No regional wall motion abnormalities noted. Right Ventricle Normal RV size. Normal systolic function. Atria The left atrium is moderately enlarged. The right atrium is moderately enlarged. Mitral Valve Mild mitral valve prolapse. Mild (1+) eccentric mitral valve insufficiency. Tricuspid Valve Normal tricuspid valve. Mild to moderate (1-2+) tricuspid valve insufficiency. Pulmonary artery systolic pressure is 53 mmHg. Aortic Valve Peak aortic valve gradient 9 mmHg. Mean aortic valve gradient 5 mmHg. Stable appearing mechanical aortic valve apparatus. Pulmonic Valve Mild stenosis of the pulmonic valve. Normal prosthetic pulmonic valve. Great Vessels Normal aortic root. The pulmonary artery is normal size. Inferior vena cava collapse with respiration. Pericardium/Pleural No pericardial effusion. MMode/2D Measurements Calculations LVIDd: 4.8 cm IVSd: 0.98 cm LVOT diam: 2.2 cm LVIDs: 3.7 cm LVPWd: 0.94 cm LVOT area: 3.8 cm2 RVDd: 5.5 cm FS: 24.3 % Ao root diam: 2.9 cm LAV(MOD-bp): 82.7 ml RVOT diam: 2.0 cm LAV(MOD-bp) Indexed: 36.5 ml/m2 LAV(MOD-sp2): 70.7 ml LAV(MOD-sp4): 84.5 ml SV(MOD-sp4): 40.3 ml SV(sp4-el): 40.8 ml LVAd ap4: 26.7 cm2 LVLd ap4: 7.8 cm SI(MOD-sp4): 17.8 ml/m2 EDV(MOD-sp4): 78.2 ml EDV(sp4-el): 77.9 ml LVAs ap4: 16.6 cm2 LVLs ap4: 6.3 cm ESV(MOD-sp4): 37.9 ml ESV(sp4-el): 37.2 ml EF(MOD-sp4): 51.6 % EF(sp4-el): 52.3 % LA A4 area: 25.4 cm2 LA dimension(2D): 5.5 cm RA A4 area: 25.0 cm2 TAPSE: 1.4 cm Doppler Measurements Calculations MV E max nilson: 69.9 cm/sec Lat Peak E' Nilson: 15.5 cm/sec Med Peak E' Nilson: 7.9 cm/sec E/E' lat: 4.5 E/E' med: 8.8 Ao V2 max: 164.2 cm/sec LV V1 max: 132.4 cm/sec SV(LVOT): 133.0 ml Ao max P.4 mmHg LV V1 max P.0 mmHg Ao V2 mean: 110.2 cm/sec LV V1 mean P.3 mmHg Ao mean P.3 mmHg LV V1 mean: 111.4 cm/sec Ao V2 VTI: 30.8 cm LV V1 VTI: 34.8 cm AV (velocity ratio): 1.1 SEVERIANO(I,D): 4.3 cm2 SEVERIANO(V,D): 3.1 cm2 PA V2 max: 205.8 cm/sec PI end-d nilson: 62.2 cm/sec SV(RVOT): 94.1 ml PA V2 mean: 147.9 cm/sec PA mean PG (full): 7.1 mmHg TR max nilson: 342.9 cm/sec Qp/Qs: 1.0/1.4 TR max P.0 mmHg ECHO/Echo Complete Interpretation Summary Normal LV size. Left ventricular systolic function is normal. The left ventricular ejection fraction is 55 %. Normal prosthetic pulmonic valve. Stable appearing mechanical aortic valve apparatus. Mean aortic valve gradient 5 mmHg. Pulmonary artery systolic pressure is 53 mmHg. Ordering Physician: Kuldeep Austin Referring Physician: Louie Burns Performed By: Haley Austin, LOC, RVT 12/16/241699 Date Michael Maldonado MD CC: JD Austin; Dr. Louie Burns, DO Date Dictated: 12/16/24133 Date Transcribed: 12/16/241699 Lay Out Drafter: Signed Normal [facility] Prothrombin Time w/INRon INR Coag (PPP) [Relative time] 2.8 {INR} Normal [facility] Comment on above: Order Comment: ADD O N TO LABS DONE ON omments: STANDING ORDER: FAX to [id number] Performed By: #### L 300.3900 ####[facility] [address] [place], [address] PT Coag (PPP) [Time] 29.9 s High 11.7-14.9 [facility] Comment on above: Order Comment: ADD O N TO LABS DONE ON omments: STANDING ORDER: FAX to [id number] Performed By: #### L 300.3900 ####[facility] [address] [place], [address] CBC W/Diff, Automatedon 06-0 Absolute Lymph 0.75 X10 3/uL Low 0.83-4.51 [facility] Comment on above: Performed By: #### L 100.0100, L500.2500 #### [facility] Laboratory [address] [place], [address] Absolute Neut 3.7 X10 3/uL Normal 2.0-7.7 [facility] Comment on above: Performed By: #### L 100.0100, L500.2500 #### [facility] Laboratory [address] [place], [address] Basophils/100 WBC (Bld) 1.2 % High 0-1 [facility] Comment on above: Performed By: #### L 100.0100, L500.2500 #### [facility] Laboratory [address] [place], [address] Eosinophils/100 WBC (Bld) 5.5 % High 0-5 [facility] Comment on above: Performed By: #### L 100.0100, L500.2500 #### [facility] Laboratory [address] [place], [address] Erythrocyte distribution width (RBC) [Ratio] 14.1 % Normal 11.6-14.6 [facility] Comment on above: Performed By: #### L 100.0100, L500.2500 #### [facility] Laboratory [address] [place], [address] Hematocrit (Bld) [Volume fraction] 37.3 % Low 40-54 [facility] Comment on above: Performed By: #### L 100.0100, L500.2500 #### [facility] Laboratory [address] [place], [address] Hemoglobin (Bld) [Mass/Vol] 12.4 g/dL Low 13.0-16.5 [facility] Comment on above: Performed By: #### L 100.0100, L500.2500 #### [facility] Laboratory [address] [place], [address] IG% 0.200 Normal 0.0-0.9 [facility] Comment on above: Result Comment: IG% - Immature Granulocytes (promyelocytes, myelocytes and metamyelocytes) > 1% indicates that a LEFT SHIFT is Present. Performed By: #### L 100.0100, L500.2500 #### [facility] Laboratory [address] [place], [address] Lymphocytes/100 WBC (Bld) 12.8 % Low 19-41 [facility] Comment on above: Performed By: #### L 100.0100, L500.2500 #### [facility] Laboratory [address] [place], [address] MCH (RBC) [Entitic mass] 32.9 pg High 27.0-32.0 [facility] Comment on above: Performed By: #### L 100.0100, L500.2500 #### [facility] Laboratory [address] [place], [address] MCHC (RBC) [Mass/Vol] 33.2 g/dL Normal 32-36 [facility] Comment on above: Performed By: #### L 100.0100, L500.2500 #### [facility] Laboratory [address] [place], [address] MCV (RBC) [Entitic vol] 98.9 fL High 80-94 [facility] Comment on above: Performed By: #### L 100.0100, L500.2500 #### [facility] Laboratory [address] [place], [address] Monocytes/100 WBC (Bld) 17.0 % High 0-10 [facility] Comment on above: Performed By: #### L 100.0100, L500.2500 #### [facility] Laboratory [address] [place], [address] Neutrophils/100 WBC (Bld) 63.3 % Normal 47-70 [facility] Comment on above: Performed By: #### L 100.0100, L500.2500 #### [facility] Laboratory [address] [place], [address] Nucleated RBC (Bld) [#/Vol] 0 10*3/uL Normal 0-5 [facility] Comment on above: Performed By: #### L 100.0100, L500.2500 #### [facility] Laboratory [address] [place], [address] Platelet mean volume (Bld) [Entitic vol] 10.5 fL Normal 6.2-12.0 [facility] Comment on above: Performed By: #### L 100.0100, L500.2500 #### [facility] Laboratory [address] [place], [address] Platelets (Bld) [#/Vol] 197 10*3/uL Normal 150-450 [facility] Comment on above: Performed By: #### L 100.0100, L500.2500 #### [facility] Laboratory [address] [place], [address] RBC (Bld) [#/Vol] 3.77 10*6/uL Low 4.6-6.2 [facility] Comment on above: Performed By: #### L 100.0100, L500.2500 #### [facility] Laboratory [address] [place], [address] RDW SD 51.7 fl High 35.1-43.9 [facility] Comment on above: Performed By: #### L 100.0100, L500.2500 #### [facility] Laboratory [address] [place], [address] WBC (Bld) [#/Vol] 5.8 10*3/uL Normal 4.4-11.0 [facility] Comment on above: Performed By: #### L 100.0100, L500.2500 #### [facility] Laboratory [address] [place], [address] Cardiology Visit Reporton Cardiology Visit Report [facility] [address] [place] [address] OFFICE VISIT Date of Service: 11/10/24 MR#: [id number] Acct: [id number] Name: KEZIAMARKUS AYALA Rep #: [id number] : 1945 Provider: SEAL MIXING OPERATOR-C Kuldeep H Kathy f Age/Sex: 79/M Location: [facility] [place] Status: Signed HPI HPI History of Present Illness Details: MARKUS NAVA, is a 79 year old white male who presents to the office today for a cardiovascular outpatient follow-up with a history of underlying aortic valve disease with aortic valve replacement with a pulmonary autograft aortic valve replacement with reconstruction of the right ventricular outflow tract using a 28 mm pulmonary homograft (1996) and subsequently status post a modified Bentyl/Ross procedure using a 25 mm [place] Hemashield composite graft (2001). This is superimposed upon a history of hypertension, PAF, and hyperlipidemia. As you recall, he was admitted to [facility] on 04/05/2021 for respiratory failure due to choking on a piece of chicken. An EGD was performed, food impaction was noted as well as distal esophageal ulcer which was clipped: Patient was intubated for the EGD, and he remained intubated overnight- he had 2 episodes of wide-complex tachycardia for which he was defibrillated on 2 occasions-he received amiodarone bolus, and amiodarone IV drip. EP consulted with him, and it was determined patient's wide complex tachycardia was due to his sinus tachycardia with right bundle branch block in the setting of respiratory distress. 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 He was discharged for home IV antibiotic therapy with plans to return to [facility] for FER. He contacted our office after an episode in which he woke up pale and gasping for air. He is believed that he had pinched his overnight oxygen. On account of such shortness of breath, is asked to undergo laboratory testing and presents to office. He denies chest, arm, jaw, or neck discomfort. He denies palpitations. He acknowledges bilateral lower extremity edema. He acknowledges shortness of breath activity including walking and most noted when going uphill or up steps. He denies shortness of breath at rest, cough, orthopnea, or PND. He acknowledges weakness in his legs and balance issues. He denies lightheadedness, dizziness, near-syncope, syncope, or fatigue. Intake Vital Signs 10/11/24 20:52 11/10/24 09:51 Height 6 ft 6 ft Weight: 231 lb BMI 31.3 BP 120/68 Blood Pressure Location Rt brachial Position Sitting Respiration 20 H Pulse 70 Pulse Source Monitor Intake Visit Reasons: See clinical note: pt to do labs first L.L. Flag Signalman Required: No Accompanied by: Self Is patient in pain?: No Allergies fentanyl Allergy (Severe, Verified 11/10/24 09:53) Other levofloxacin Adverse Reaction (Severe, Verified 11/10/24 09:53) Passed out Medications ???Medication ???Instructions ???Recorded ???Confirmed ???Type ferrous sulfate 325 mg (65 mg 325 mg PO LUNCH suppliment #30 tab s 05/04/23 11/10/24 Rx iron) tablet (FeroSul) melatonin 10 mg capsule 10 mg PO QHS SLEEP 30 days #0 caps 05/04/23 11/10/24 Rx warfarin 1 mg tablet 1 mg PO .COMPLEX BLOOD THINNER 11/10/24 Rx #180 tabs metoprolol tartrate 50 mg tablet 50 mg PO BID BLOOD PRESSURE #180 0 12/17/23 11/10/24 Rx TABLETS duloxetine 60 mg capsule,delayed 60 mg PO DAILY DEPRESSION #90 cap s 12/24/23 11/10/24 Rx release ascorbic acid (vitamin C) 500 mg 500 mg PO DAILY suppliment 4 11/10/24 History tablet (C-500) b12 gummy 1 gummy PO DAILY suppliment 11/10/24 History furosemide 40 mg tablet 40 mg PO DAILY #30 tabs 08/27/24 0 11/10/24 Rx warfarin 5 mg tablet 5 mg PO DAILY #90 TABLETS 08/28/24 11/10/24 Rx guaifenesin 600 mg tablet, 600 mg PO BID PRN 11/10/24 Histor y extended release 12 hr (Mucinex) lorazepam 0.5 mg tablet 0.5 mg PO BID PRN anxiety 11/10/24 11/10/24 History Have you fallen in the past year?: Yes (one fall 3 months ago. 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 Normal [facility] Chest PA and Lateralon 11-10 Chest PA and Lateral [facility] Imaging Services [address] [place] [address] Chest PA and Lateral MR#: [id number] Acct: [id number] Name: MARKUS NAVA Rep #: [id number] : 1945 M 79 From: Tobin Rangel MD PCP: Dr. Louie Burns DO Status: REG CLI Study: Chest PA and Lateral Date of Exam: 11/10/24 Exam# [id number] Ordering Dr: Kuldeep Austin NP SEAL MIXING OPERATOR-C PROCEDURE: CHEST PA AND LATERAL 11/10/2024 REASON FOR EXAM: SHORTNESS OF BREATH, HX RT PLEURAL EFFUSION TECHNIQUE: Frontal and lateral views of the chest. COMPARISON: Portable chest, 08/23/2024. FINDINGS: There are large bilateral pleural effusions. There is bibasilar atelectasis. There is cardiomegaly and pulmonary venous hypertension without congestive heart failure. Status post CABG surgery. Status post aortic valve replacement. There is calcific vascular disease of the thoracic aorta. Status post median sternotomy. There is multilevel degenerative disc disease of the thoracic spine. RAD/Chest PA and Lateral IMPRESSION: 1. Cardiomegaly and pulmonary venous hypertension without congestive heart failure. 2. Large bilateral pleural effusions with bibasilar atelectasis. 3. There is no significant change. Reading Location: [place] [address] CC: SEAL MIXING OPERATOR-C Kuldeep Austin; Dr. Louie Burns DO Lay Out Drafter: Signed Normal [facility] Comprehensive Metabolic Prof ilon 11-10-2024 Albumin [Mass/Vol] 3.9 g/dL Normal 3.4-4.8 [facility] Comment on above: Order Comment: Do al kal with other labs on SundayNovember 10 Performed By: #### L 501.4021 #### [facility] Laboratory [address] [place], [address] Albumin/Globulin [Mass ratio] 1.0 {ratio} Normal 0.9-2.4 [facility] Comment on above: Order Comment: Do al kal with other labs on SundayNovember 10 Performed By: #### L 501.4021 #### [facility] Laboratory [address] [place], [address] ALK PHOS 200 U/L High 40-129 [facility] Comment on above: Order Comment: Do al kal with other labs on SundayNovember 10 Performed By: #### L 501.4021 #### [facility] Laboratory [address] [place], [address] ALT [Catalytic activity/Vol] 26 U/L Normal <=46 [facility] Comment on above: Order Comment: Do al kal with other labs on SundayNovember 10 Performed By: #### L 501.4021 #### [facility] Laboratory [address] [place], [address] AST [Catalytic activity/Vol] 49 U/L High <=37 [facility] Comment on above: Order Comment: Do al kal with other labs on SundayNovember 10 Performed By: #### L 501.4021 #### [facility] Laboratory [address] [place], [address] Bilirubin [Mass/Vol] 0.67 mg/dL Normal 0.00-1.30 [facility] Comment on above: Order Comment: Do al kal with other labs on SundayNovember 10 Performed By: #### L 501.4021 #### [facility] Laboratory [address] [place], [address] BUN/CRE 20.4 RATIO High 10-20 [facility] Comment on above: Order Comment: Do al kal with other labs on SundayNovember 10 Performed By: #### L 501.4021 #### [facility] Laboratory [address] [place], [address] Calcium [Mass/Vol] 9.2 mg/dL Normal 7.6-11.0 [facility] Comment on above: Order Comment: Do al kal with other labs on SundayNovember 10 Performed By: #### L 501.4021 #### [facility] [address] [place], [address] Chloride [Moles/Vol] 102 mmol/L Normal 98-108 [facility] Comment on above: Order Comment: Do al kal with other labs on SundayNovember 10 Performed By: #### L 501.4021 #### [facility] [address] [place], [address] CO2 [Moles/Vol] 28.4 mmol/L Normal 21.0-32.0 [facility] Comment on above: Order Comment: Do al kal with other labs on SundayNovember 10 Performed By: #### L 501.4021 #### [facility] [address] [place], [address] Creatinine [Mass/Vol] 1.12 mg/dL Normal 0.70-1.20 [facility] Comment on above: Order Comment: Do al kal with other labs on SundayNovember 10 Performed By: #### L 501.4021 #### [facility] [address] [place], [address] GAP 9 Normal 5-15 [facility] Comment on above: Order Comment: Do al kal with other labs on SundayNovember 10 Performed By: #### L 501.4021 #### [facility] [address] [place], [address] GFR/1.73 sq M.predicted among non-blacks MDRD (S/P/Bld) [Vol rate/Area] 67 mL/min/{1.73_m2} Normal >60 [facility] Comment on above: Order Comment: Do al kal with other labs on SundayNovember 10 Result Comment: mL/m in/1.73m2 CKD-EPI Creatinine Equation (2020) Performed By: #### L 501.4021 #### [facility] [address] [place], [address] Globulin (S) [Mass/Vol] 4.0 g/dL Normal 2.2-4.2 [facility] Comment on above: Order Comment: Do al kal with other labs on SundayNovember 10 Performed By: #### L 501.4021 #### [facility] [address] [place], [address] Glucose [Mass/Vol] 110 mg/dL High 70-99 [facility] Comment on above: Order Comment: Do al kal with other labs on SundayNovember 10 Performed By: #### L 501.4021 #### [facility] [address] [place], [address] Potassium [Moles/Vol] 4.2 mmol/L Normal 3.3-5.1 [facility] Comment on above: Order Comment: Do al kal with other labs on SundayNovember 10 Performed By: #### L 501.4021 #### [facility] [address] [place], [address] Sodium [Moles/Vol] 139 mmol/L Normal 133-145 [facility] Comment on above: Order Comment: Do al kal with other labs on SundayNovember 10 Performed By: #### L 501.4021 #### [facility] [address] [place], [address] T PROT 7.9 g/dL Normal 5.9-8.4 [facility] Comment on above: Order Comment: Do al kal with other labs on SundayNovember 10 Performed By: #### L 501.4021 #### [facility] [address] [place], [address] Urea nitrogen [Mass/Vol] 23 mg/dL High 4-19 [facility] Comment on above: Order Comment: Do al kal with other labs on SundayNovember 10 Performed By: #### L 501.4021 #### [facility] [address] [place], [address] L503.7505on 11-10-2024 Natriuretic peptide B (Bld) [Mass/Vol] 2020 pg/mL High <=1800 [facility] Comment on above: Result Comment: Hear t Failure Unlikely: < 300 pg/mL Heart Failure Likely < 50 Years: > 450 pg/mL 50-75 Years: > 900 pg/mL >75 Years: > 1800 pg/mL Performed By: #### L 501.4021 #### [facility] [address] [place], [address] Prothrombin Time w/INRon INR Coag (PPP) [Relative time] 3.7 {INR} Normal [facility] Comment on above: Order Comment: Comme nts: Do along with other labs on SundayNovember 10 Performed By: #### L 100.0100, L500.2500 #### [facility] [address] [place], [address] PT Coag (PPP) [Time] 37.3 s High 11.7-14.9 [facility] Comment on above: Order Comment: Comme nts: Do along with other labs on SundayNovember 10 Performed By: #### L 100.0100, L500.2500 #### [facility] [address] [place], [address] Emergency Department Summary on 10-11-2024 Emergency Department Summary [facility] Medical Records Department [address] [place] [address] Emergency Department Summary 10/11/24 MR#: [id number] Acct: [id number] Name: MARKUS NAVA Rep #: [id number] : 1945 79 From: Amor Carmona MD PCP: Dr. Louie Burns, DO Status:DEP ER Location: ED HPI HPI - Fall History of Present Illness Chief Complaint: Fall Narrative Narrative: 79-year-old male was bending over trimming a small tree when he lost his balance and fell. To avoid hitting his head he landed on his left hip and left shoulder. He is on Coumadin for mechanical heart valve but states there was no head injury or LOC. He was able to get up and ambulate and eat dinner and presents due to left shoulder pain. He is right-hand dominant. He has no weakness or numbness or tingling. [facility] Medical History Bacteremia Pleural effusion, right History of Clostridioides difficile colitis Crohn's disease History of atrial fibrillation History of endocarditis Hiatal hernia Incisional hernia Diverticulitis Scarlet fever Kidney stones Anemia Pseudomembranous colitis buttermaker current use of anticoagulant Pure hypercholesterolemia Essential hypertension Other buttermaker (current) drug therapy Nonrheumatic aortic (valve) insufficiency Nonrheumatic pulmonary valve insufficiency group home (current) use of anticoagulants Gastrointestinal bleed Post traumatic stress disorder Panic disorder Anxiety Streptococcal endocarditis Colovesical fistula Anxiety disorder History of endocarditis Home Medications ???Medication ???Instructions ???Recorded ???Last Taken ???Type ferrous sulfate 325 mg (65 mg 325 mg PO LUNCH suppliment #30 tab s 05/04/23 Unknown Rx iron) tablet (FeroSul) melatonin 10 mg capsule 10 mg PO QHS SLEEP 30 days #0 caps 05/04/23 04/24/23 Rx lorazepam 0.5 mg tablet 0.5 mg PO BID anxiety 05/21/23 22:58 History warfarin 1 mg tablet 1 mg PO .COMPLEX BLOOD THINNER 01/21/24 Rx #180 tabs metoprolol tartrate 50 mg tablet 50 mg PO BID BLOOD PRESSURE #180 0 12/17/23 01/21/24 Rx TABLETS duloxetine 60 mg capsule,delayed 60 mg PO DAILY DEPRESSION #90 cap s 12/24/23 01/21/24 Rx release ascorbic acid (vitamin C) 500 mg 500 mg PO DAILY suppliment 4 Unknown History tablet (C-500) b12 gummy 1 gummy PO DAILY suppliment Unknown History nystatin 100,000 unit/gram topical 1 applic topical BID 08/23/24 Un known History powder (Nyamyc) triamcinolone acetonide 0.1 % 1 applic topical TID PRN PRN 08/23 Unknown History topical cream affected area furosemide 40 mg tablet 40 mg PO DAILY #30 tabs 08/27/24 U nknown Rx guaifenesin 600 mg tablet, 600 mg PO BID #10 tabs 08/27/24 Un known Rx extended release 12 hr (Mucinex) sulfamethoxazole 800 1 tab PO BIDCM #7 tabs 08/27/24 Un known Rx mg-trimethoprim 160 mg tablet warfarin 5 mg tablet 5 mg PO DAILY #90 TABLETS 08/28/24 Unknown Rx lidocaine 5 % topical patch 1 patch topical DAILY PRN pain 7 0 10/11/24 Unknown Rx (Lidoderm) days #15 ea Allergy/AdvReac Type Severity Reaction Status Date / Time fentanyl Allergy Severe Other Verified 10/11/24 20:54 levofloxacin AdvReac Severe Passed out Verified 10/11/24 20:54 Family History (Updated 08/23/24 @ 02:[address] Krys Bull MD) Father CAD (coronary artery disease) Heart disease Hypertension Myocardial infarction Mother Rheumatic fever Heart disease Surgical History History of prosthetic heart valve History of colonoscopy ( 04/2023) History of mechanical aortic valve replacement History of herniorrhaphy History of colon resection H/O pulmonic valve replacement Social History household members: none Smoking Status: Former smoker how long ago did patient quit smokin years ago alcohol intake: current alcohol intake frequency: holidays/special occasions only Alcohol type: beer details: social caffeine: Yes Type: coffee Number of servings: 1 ROS ROS ED ROS Narrative CVS: Negative for chest pain. Respiratory: Negative for shortness of breath. Neuro: Negative for motor/sensory dysfunction. Skin: Negative for abrasions or lacerations. Musc: Positive for left shoulder pain, trauma. EXAM Physical Exam Narrative Exam Narrative: CONST: Patient sitting in no acute distress. EYES: Normal inspection. HEAD: Normocephalic atraumatic. NECK: Normal inspection. RESP: No respiratory distress, CTAB. Wearing portable nasal cannula oxygen. CVS: Click from mechanical heart valve, no murmur, no gallop. Back: Normal inspection, no midline tenderness. SKIN: Color no (more content not included)... Normal [facility] HIP, UNI W/ Pelvis 2-3 Views on 10-11-2024 HIP, UNI W/ Pelvis 2-3 Views [facility] Imaging Services [address] [place] [address] HIP, UNI W/ Pelvis 2-3 Views MR#: [id number] Acct: [id number] Name: MARKUS NAVA Rep #: [id number] : 1945 M 79 From: Darryl kilpatrick MD PCP: Dr. Louie Burns DO Status: DEP ER Study: HIP, UNI W/ Pelvis 2-3 Views Date of Exam: 03/28 Exam# [id number] Ordering Dr: Helga Lundy PROCEDURE: HIP, UNI W/ PELVIS 2-3 VIEWS 10/11/2024 REASON FOR EXAM: PAIN TECHNIQUE: Three views of the left hip COMPARISON: None FINDINGS: No acute fracture or dislocation. Diffuse osteopenia. Moderate bilateral osteoarthritis. No focal soft tissue abnormality. RAD/HIP, UNI W/ Pelvis 2-3 Views IMPRESSION: No acute findings. Moderate osteoarthritis. Reading Location: [facility] CC: Dr. Louie Burns DO; JAYNE Pelayo Lay Out Drafter: Signed Normal [facility] Shoulder min 2 Viewson 10-11 Shoulder min 2 Views [facility] Imaging Services [address] [place] [address] Shoulder min 2 Views MR#: [id number] Acct: [id number] Name: MARKUS NAVA Rep #: [id number] : 1945 M 79 From: Darryl kilpatrick MD PCP: Dr. Louie Burns DO Status: DEP ER Study: Shoulder min 2 Views Date of Exam: 10/11/24 Exam# [id number] Ordering Dr: Helga Lundy PROCEDURE: SHOULDER MIN 2 VIEWS 10/11/2024 REASON FOR EXAM: PAIN TECHNIQUE: Three views of the left shoulder. COMPARISON: None FINDINGS: No acute fracture or dislocation. Moderate atherosclerotic calcification of the glenohumeral and acromioclavicular joints. Acromiohumeral interval is maintained. Imaged lung cuevas are clear RAD/Shoulder min 2 Views IMPRESSION: No acute findings. Moderate osteoarthritis. Reading Location: [facility] CC: Dr. Louie Burns DO; JAYNE Pelayo Lay Out Drafter: Signed Normal [facility] CBC W/Diff, Automatedon 09-02 PATH REV Reviewed Normal [facility] Comment on above: Result Comment: SEE REPORT IN PATIENT'S EMR AMENDED REPORT 09/17/24 1045 PATH REV previously reported as: October Performed By: #### L 500.4050, L100.0100, L300.4310, L300.3900, L503.6005, M200.1000 #### [facility] [address] [place], [address] Culture, Blood (WB)on 2024 CUB Blood cultures x2, from two different sites No growth in 5 days. Normal [facility] Comment on above: Performed By: #### L 500.4050, L100.0100, L300.4310, L300.3900, L503.6005, M200.1000 ####[facility] [address], [address] Basic Metabolic Profile (BMP )on 08-27-2024 BUN/CRE 13.2 RATIO Normal - [facility] Comment on above: Performed By: #### L 100.0100, L500.2500 ####[facility] [address] [place], [address] Calcium [Mass/Vol] 7.3 mg/dL Low 7.6-11.0 [facility] Comment on above: Performed By: #### L 100.0100, L500.2500 ####[facility] [address] [place], [address] Chloride [Moles/Vol] 98 mmol/L Normal 98-108 [facility] Comment on above: Performed By: #### L 100.0100, L500.2500 ####[facility] [address] [place], [address] CO2 [Moles/Vol] 25.0 mmol/L Normal 21.0-32.0 [facility] Comment on above: Performed By: #### L 100.0100, L500.2500 ####[facility] [address] [place], [address] Creatinine [Mass/Vol] 0.99 mg/dL Normal 0.70-1.20 [facility] Comment on above: Performed By: #### L 100.0100, L500.2500 ####[facility] [address], [address] ECRCL 72.57 ml/min Normal 50-250 [facility] Comment on above: Performed By: #### L 100.0100, L500.2500 ####[facility] [address] [place], [address] GAP 12 Normal 5-15 [facility] Comment on above: Performed By: #### L 100.0100, L500.2500 ####[facility] [address], [address] GFR/1.73 sq M.predicted among non-blacks MDRD (S/P/Bld) [Vol rate/Area] 78 mL/min/{1.73_m2} Normal >60 [facility] Comment on above: Result Comment: mL/m in/1.73m2 CKD-EPI Creatinine Equation (2020) Performed By: #### L 100.0100, L500.2500 ####[facility] [address] [place], [address] Glucose [Mass/Vol] 104 mg/dL High 70-99 [facility] Comment on above: Performed By: #### L 100.0100, L500.2500 ####[facility] [address] [place], [address] Potassium [Moles/Vol] 4.0 mmol/L Normal 3.3-5.1 [facility] Comment on above: Performed By: #### L 100.0100, L500.2500 ####[facility] [address], [address] Sodium [Moles/Vol] 135 mmol/L Normal 133-145 [facility] Comment on above: Performed By: #### L 100.0100, L500.2500 ####[facility] [address], [address] Urea nitrogen [Mass/Vol] 13 mg/dL Normal 4-19 [facility] Comment on above: Performed By: #### L 100.0100, L500.2500 ####[facility] [address], [address] CBC W/Diff, Automatedon 08-03 Absolute Lymph 0.60 X10 3/uL Low 0.83-4.51 [facility] Comment on above: Performed By: #### L 100.0100, L500.2500 ####[facility] [address], [address] Absolute Neut 3.7 X10 3/uL Normal 2.0-7.7 [facility] Comment on above: Performed By: #### L 100.0100, L500.2500 ####[facility] [address] [place], [address] Basophils/100 WBC (Bld) 1.1 % High 0-1 [facility] Comment on above: Performed By: #### L 100.0100, L500.2500 ####[facility] [address] [place], [address] Eosinophils/100 WBC (Bld) 4.4 % Normal 0-5 [facility] Comment on above: Performed By: #### L 100.0100, L500.2500 ####[facility] [address], [address] Erythrocyte distribution width (RBC) [Ratio] 14.2 % Normal 11.6-14.6 [facility] Comment on above: Performed By: #### L 100.0100, L500.2500 ####[facility] [address] [place], [address] Hematocrit (Bld) [Volume fraction] 39.9 % Low 40-54 [facility] Comment on above: Performed By: #### L 100.0100, L500.2500 ####[facility] [address], [address] Hemoglobin (Bld) [Mass/Vol] 13.4 g/dL Normal 13.0-16.5 [facility] Comment on above: Performed By: #### L 100.0100, L500.2500 ####[facility] [address] [place], [address] IG% 0.500 Normal 0.0-0.9 [facility] Comment on above: Result Comment: IG% - Immature Granulocytes (promyelocytes, myelocytes and metamyelocytes) > 1% indicates that a LEFT SHIFT is Present. Performed By: #### L 100.0100, L500.2500 ####[facility] [address], [address] Lymphocytes/100 WBC (Bld) 10.6 % Low 19-41 [facility] Comment on above: Performed By: #### L 100.0100, L500.2500 ####[facility] [address] [place], [address] MCH (RBC) [Entitic mass] 31.5 pg Normal 27.0-32.0 [facility] Comment on above: Performed By: #### L 100.0100, L500.2500 ####[facility] [address], [address] MCHC (RBC) [Mass/Vol] 33.6 g/dL Normal 32-36 [facility] Comment on above: Performed By: #### L 100.0100, L500.2500 ####[facility] [address], [address] MCV (RBC) [Entitic vol] 93.7 fL Normal 80-94 [facility] Comment on above: Performed By: #### L 100.0100, L500.2500 ####[facility] [address], [address] Monocytes/100 WBC (Bld) 19.2 % High 0-10 [facility] Comment on above: Performed By: #### L 100.0100, L500.2500 ####[facility] [address], [address] Neutrophils/100 WBC (Bld) 64.2 % Normal 47-70 [facility] Comment on above: Performed By: #### L 100.0100, L500.2500 ####[facility] [address], [address] Nucleated RBC (Bld) [#/Vol] 0 10*3/uL Normal 0-5 [facility] Comment on above: Performed By: #### L 100.0100, L500.2500 ####[facility] [address] [place], [address] Platelet mean volume (Bld) [Entitic vol] 10.5 fL Normal 6.2-12.0 [facility] Comment on above: Performed By: #### L 100.0100, L500.2500 ####[facility] [address] [place], [address] Platelets (Bld) [#/Vol] 198 10*3/uL Normal 150-450 [facility] Comment on above: Performed By: #### L 100.0100, L500.2500 ####[facility] [address] [place], [address] RBC (Bld) [#/Vol] 4.26 10*6/uL Low 4.6-6.2 [facility] Comment on above: Performed By: #### L 100.0100, L500.2500 ####[facility] [address] [place], [address] RDW SD 48.6 fl High 35.1-43.9 [facility] Comment on above: Performed By: #### L 100.0100, L500.2500 ####[facility] [address] [place], [address] WBC (Bld) [#/Vol] 5.7 10*3/uL Normal 4.4-11.0 [facility] Comment on above: Performed By: #### L 100.0100, L500.2500 ####[facility] [address], [address] Prothrombin Time w/INRon INR Coag (PPP) [Relative time] 2.4 {INR} Normal [facility] Comment on above: Performed By: #### L 501.4021 #### [facility] [address] [place], [address] PT Coag (PPP) [Time] 26.3 s High 11.7-14.9 [facility] Comment on above: Performed By: #### L 501.4021 #### [facility] [address] [place], [address] Basic Metabolic Profile (BMP )on 08-26-2024 BUN/CRE 14.6 RATIO Normal 10-20 [facility] Comment on above: Performed By: #### L 501.4021 #### [facility] [address] [place], [address] Calcium [Mass/Vol] 8.7 mg/dL Normal 7.6-11.0 [facility] Comment on above: Performed By: #### L 501.4021 #### [facility] [address] [place], [address] Chloride [Moles/Vol] 99 mmol/L Normal 98-108 [facility] Comment on above: Performed By: #### L 501.4021 #### [facility] [address] [place], [address] CO2 [Moles/Vol] 27.2 mmol/L Normal 21.0-32.0 [facility] Comment on above: Performed By: #### L 501.4021 #### [facility] [address] [place], [address] Creatinine [Mass/Vol] 0.94 mg/dL Normal 0.70-1.20 [facility] Comment on above: Performed By: #### L 501.4021 #### [facility] [address] [place], [address] ECRCL 76.43 ml/min Normal 50-250 [facility] Comment on above: Performed By: #### L 501.4021 #### [facility] [address] [place], [address] GAP 9 Normal 5-15 [facility] Comment on above: Performed By: #### L 501.4021 #### [facility] [address] [place], [address] GFR/1.73 sq M.predicted among non-blacks MDRD (S/P/Bld) [Vol rate/Area] 82 mL/min/{1.73_m2} Normal >60 [facility] Comment on above: Result Comment: mL/m in/1.73m2 CKD-EPI Creatinine Equation (2020) Performed By: #### L 501.4021 #### [facility] [address] [place], [address] Glucose [Mass/Vol] 108 mg/dL High 70-99 [facility] Comment on above: Performed By: #### L 501.4021 #### [facility] [address] [place], [address] Potassium [Moles/Vol] 4.1 mmol/L Normal 3.3-5.1 [facility] Comment on above: Performed By: #### L 501.4021 #### [facility] [address] [place], [address] Sodium [Moles/Vol] 135 mmol/L Normal 133-145 [facility] Comment on above: Performed By: #### L 501.4021 #### [facility] [address] [place], [address] Urea nitrogen [Mass/Vol] 14 mg/dL Normal 4-19 [facility] Comment on above: Performed By: #### L 501.4021 #### [facility] [address] [place], [address] CBC W/Diff, Automatedon -2 -2024 Absolute Lymph 0.57 X10 3/uL Low 0.83-4.51 [facility] Comment on above: Performed By: #### L 501.4021 #### [facility] [address] [place], [address] Absolute Neut 5.0 X10 3/uL Normal 2.0-7.7 [facility] Comment on above: Performed By: #### L 501.4021 #### [facility] [address] [place], [address] Basophils/100 WBC (Bld) 0.6 % Normal 0-1 [facility] Comment on above: Performed By: #### L [id number] #### [facility] [address] [place], [address] Eosinophils/100 WBC (Bld) 2.9 % Normal 0-5 [facility] Comment on above: Performed By: #### L [id number] #### [facility] [address] [place], [address] Erythrocyte distribution width (RBC) [Ratio] 14.4 % Normal 11.6-14.6 [facility] Comment on above: Performed By: #### L 501.4021 #### [facility] [address] [place], [address] Hematocrit (Bld) [Volume fraction] 37.1 % Low 40-54 [facility] Comment on above: Performed By: #### L [id number] #### [facility] [address] [place], [address] Hemoglobin (Bld) [Mass/Vol] 12.6 g/dL Low 13.0-16.5 [facility] Comment on above: Performed By: #### L 501.4021 #### [facility] [address] [place], [address] IG% 0.400 Normal 0.0-0.9 [facility] Comment on above: Result Comment: IG% - Immature Granulocytes (promyelocytes, myelocytes and metamyelocytes) > 1% indicates that a LEFT SHIFT is Present. Performed By: #### L 501.4021 #### [facility] [address] [place], [address] Lymphocytes/100 WBC (Bld) 8.1 % Low 19-41 [facility] Comment on above: Performed By: #### L [id number] #### [facility] [address] [place], [address] MCH (RBC) [Entitic mass] 31.8 pg Normal 27.0-32.0 [facility] Comment on above: Performed By: #### L [id number] #### [facility] [address] [place], [address] MCHC (RBC) [Mass/Vol] 34.0 g/dL Normal 32-36 [facility] Comment on above: Performed By: #### L [id number] #### [facility] [address] [place], [address] MCV (RBC) [Entitic vol] 93.7 fL Normal 80-94 [facility] Comment on above: Performed By: #### L [id number] #### [facility] [address] [place], [address] Monocytes/100 WBC (Bld) 17.0 % High 0-10 [facility] Comment on above: Performed By: #### L 501.4021 #### [facility] [address] [place], [address] Neutrophils/100 WBC (Bld) 71.0 % High 47-70 [facility] Comment on above: Performed By: #### L [id number] #### [facility] [address] [place], [address] Nucleated RBC (Bld) [#/Vol] 0 10*3/uL Normal 0-5 [facility] Comment on above: Performed By: #### L 501.4021 #### [facility] [address] [place], [address] Platelet mean volume (Bld) [Entitic vol] 10.4 fL Normal 6.2-12.0 [facility] Comment on above: Performed By: #### L 501.4021 #### [facility] [address] [place], [address] Platelets (Bld) [#/Vol] 181 10*3/uL Normal 150-450 [facility] Comment on above: Performed By: #### L [id number] #### [facility] [address] [place], [address] RBC (Bld) [#/Vol] 3.96 10*6/uL Low 4.6-6.2 [facility] Comment on above: Performed By: #### L 501.4021 #### [facility] [address] [place], [address] RDW SD 49.5 fl High 35.1-43.9 [facility] Comment on above: Performed By: #### L [id number] #### [facility] [address] [place], [address] WBC (Bld) [#/Vol] 7.0 10*3/uL Normal 4.4-11.0 [facility] Comment on above: Performed By: #### L [id number] #### [facility] [address] [place], [address] Prothrombin Time w/INRon INR Coag (PPP) [Relative time] 2.3 {INR} Normal [facility] Comment on above: Performed By: #### L 100.0100, L500.2500 #### [facility] [address] [place], [address] PT Coag (PPP) [Time] 25.9 s High 11.7-14.9 [facility] Comment on above: Performed By: #### L 100.0100, L500.2500 #### [facility] [address] [place], [address] Respiratory Cultureon 2024 RESPC Serratia marcescens Amount Growth 1+ Serratia marcescens: REACTION Cefepime Islt PANCHO <=0.12 S cefTRIAXone Islt PANCHO <=0.25 S Ciprofloxacin Islt PANCHO 0.5 I Gentamicin Islt PANCHO <=1 S levoFLOXacin Islt PANCHO 1 I Meropenem Islt PANCHO <=0.25 S TMP SMX Islt PANCHO <=20 S Normal [facility] Comment on above: Performed By: #### L 100.0100, L500.2500 #### [facility] [address] [place], [address] Basic Metabolic Profile (BMP )on 08-25-2024 BUN/CRE 15.8 RATIO Normal 10-20 [facility] Comment on above: Performed By: #### L 100.0100, L500.2500 #### [facility] [address] [place], [address] Calcium [Mass/Vol] 8.6 mg/dL Normal 7.6-11.0 [facility] Comment on above: Performed By: #### L 100.0100, L500.2500 #### [facility] [address] [place], [address] Chloride [Moles/Vol] 102 mmol/L Normal 98-108 [facility] Comment on above: Performed By: #### L 100.0100, L500.2500 #### [facility] [address] [place], [address] CO2 [Moles/Vol] 23.6 mmol/L Normal 21.0-32.0 [facility] Comment on above: Performed By: #### L 100.0100, L500.2500 #### [facility] [address] [place], [address] Creatinine [Mass/Vol] 0.87 mg/dL Normal 0.70-1.20 [facility] Comment on above: Performed By: #### L 100.0100, L500.2500 #### [facility] [address] [place], [address] ECRCL 84.72 ml/min Normal 50-250 [facility] Comment on above: Performed By: #### L 100.0100, L500.2500 #### [facility] [address] [place], [address] GAP 10 Normal 5-15 [facility] Comment on above: Performed By: #### L 100.0100, L500.2500 #### [facility] [address] [place], [address] GFR/1.73 sq M.predicted among non-blacks MDRD (S/P/Bld) [Vol rate/Area] 88 mL/min/{1.73_m2} Normal >60 [facility] Comment on above: Result Comment: mL/m in/1.73m2 CKD-EPI Creatinine Equation (2020) Performed By: #### L 100.0100, L500.2500 #### [facility] [address] [place], [address] Glucose [Mass/Vol] 99 mg/dL Normal 70-99 [facility] Comment on above: Performed By: #### L 100.0100, L500.2500 #### [facility] [address] [place], [address] Potassium [Moles/Vol] 4.3 mmol/L Normal 3.3-5.1 [facility] Comment on above: Performed By: #### L 100.0100, L500.2500 #### [facility] [address] [place], [address] Sodium [Moles/Vol] 135 mmol/L Normal 133-145 [facility] Comment on above: Performed By: #### L 100.0100, L500.2500 #### [facility] [address], [address] Urea nitrogen [Mass/Vol] 14 mg/dL Normal 4-19 [facility] Comment on above: Performed By: #### L 100.0100, L500.2500 #### [facility] [address] [place], [address] CBC W/Diff, Automatedon 03-2 -2024 Absolute Lymph 0.59 X10 3/uL Low 0.83-4.51 [facility] Comment on above: Performed By: #### L 100.0100, L500.2500 #### [facility] [address] [place], [address] Absolute Neut 5.8 X10 3/uL Normal 2.0-7.7 [facility] Comment on above: Performed By: #### L 100.0100, L500.2500 #### [facility] [address] [place], [address] Basophils/100 WBC (Bld) 0.6 % Normal 0-1 [facility] Comment on above: Performed By: #### L 100.0100, L500.2500 #### [facility] [address] [place], [address] Eosinophils/100 WBC (Bld) 2.5 % Normal 0-5 [facility] Comment on above: Performed By: #### L 100.0100, L500.2500 #### [facility] [address] [place], [address] Erythrocyte distribution width (RBC) [Ratio] 14.4 % Normal 11.6-14.6 [facility] Comment on above: Performed By: #### L 100.0100, L500.2500 #### [facility] [address] [place], [address] Hematocrit (Bld) [Volume fraction] 36.9 % Low 40-54 [facility] Comment on above: Performed By: #### L 100.0100, L500.2500 #### [facility] [address] [place], [address] Hemoglobin (Bld) [Mass/Vol] 12.3 g/dL Low 13.0-16.5 [facility] Comment on above: Performed By: #### L 100.0100, L500.2500 #### [facility] [address] [place], [address] IG% 0.400 Normal 0.0-0.9 [facility] Comment on above: Result Comment: IG% - Immature Granulocytes (promyelocytes, myelocytes and metamyelocytes) > 1% indicates that a LEFT SHIFT is Present. Performed By: #### L 100.0100, L500.2500 #### [facility] [address] [place], [address] Lymphocytes/100 WBC (Bld) 7.6 % Low 19-41 [facility] Comment on above: Performed By: #### L 100.0100, L500.2500 #### [facility] [address] [place], [address] MCH (RBC) [Entitic mass] 31.3 pg Normal 27.0-32.0 [facility] Comment on above: Performed By: #### L 100.0100, L500.2500 #### [facility] [address] [place], [address] MCHC (RBC) [Mass/Vol] 33.3 g/dL Normal 32-36 [facility] Comment on above: Performed By: #### L 100.0100, L500.2500 #### [facility] [address] [place], [address] MCV (RBC) [Entitic vol] 93.9 fL Normal 80-94 [facility] Comment on above: Performed By: #### L 100.0100, L500.2500 #### [facility] [address] [place], [address] Monocytes/100 WBC (Bld) 13.8 % High 0-10 [facility] Comment on above: Performed By: #### L 100.0100, L500.2500 #### [facility] [address] [place], [address] Neutrophils/100 WBC (Bld) 75.1 % High 47-70 [facility] Comment on above: Performed By: #### L 100.0100, L500.2500 #### [facility] [address] [place], [address] Nucleated RBC (Bld) [#/Vol] 0 10*3/uL Normal 0-5 [facility] Comment on above: Performed By: #### L 100.0100, L500.2500 #### [facility] [address] [place], [address] Platelet mean volume (Bld) [Entitic vol] 10.2 fL Normal 6.2-12.0 [facility] Comment on above: Performed By: #### L 100.0100, L500.2500 #### [facility] [address] [place], [address] Platelets (Bld) [#/Vol] 174 10*3/uL Normal 150-450 [facility] Comment on above: Performed By: #### L 100.0100, L500.2500 #### [facility] [address] [place], [address] RBC (Bld) [#/Vol] 3.93 10*6/uL Low 4.6-6.2 [facility] Comment on above: Performed By: #### L 100.0100, L500.2500 #### [facility] [address] [place], [address] RDW SD 50.3 fl High 35.1-43.9 [facility] Comment on above: Performed By: #### L 100.0100, L500.2500 #### [facility] [address] [place], [address] WBC (Bld) [#/Vol] 7.7 10*3/uL Normal 4.4-11.0 [facility] Comment on above: Performed By: #### L 100.0100, L500.2500 #### [facility] [address] [place], [address] Prothrombin Time w/INRon - -2024 INR Coag (PPP) [Relative time] 2.0 {INR} Normal [facility] Comment on above: Performed By: #### L 501.4021 #### [facility] [address] [place], [address] PT Coag (PPP) [Time] 22.7 s High 11.7-14.9 [facility] Comment on above: Performed By: #### L 501.4021 #### [facility] [address] [place], [address] CBC W/Diff, Automatedon - Absolute Lymph 0.85 X10 3/uL Normal 0.83-4.51 [facility] Comment on above: Performed By: #### L 100.0100, L500.2500 #### [facility] [address] [place], [address] Absolute Neut 4.2 X10 3/uL Normal 2.0-7.7 [facility] Comment on above: Performed By: #### L 100.0100, L500.2500 #### [facility] [address] [place], [address] Basophils/100 WBC (Bld) 1.2 % High 0-1 [facility] Comment on above: Performed By: #### L 100.0100, L500.2500 #### [facility] [address] [place], [address] Eosinophils/100 WBC (Bld) 2.1 % Normal 0-5 [facility] Comment on above: Performed By: #### L 100.0100, L500.2500 #### [facility] [address] [place], [address] Erythrocyte distribution width (RBC) [Ratio] 14.5 % Normal 11.6-14.6 [facility] Comment on above: Performed By: #### L 100.0100, L500.2500 #### [facility] [address] [place], [address] Hematocrit (Bld) [Volume fraction] 37.4 % Low 40-54 [facility] Comment on above: Performed By: #### L 100.0100, L500.2500 #### [facility] [address] [place], [address] Hemoglobin (Bld) [Mass/Vol] 12.5 g/dL Low 13.0-16.5 [facility] Comment on above: Performed By: #### L 100.0100, L500.2500 #### [facility] [address] [place], [address] IG% 0.400 Normal 0.0-0.9 [facility] Comment on above: Result Comment: IG% - Immature Granulocytes (promyelocytes, myelocytes and metamyelocytes) > 1% indicates that a LEFT SHIFT is Present. Performed By: #### L 100.0100, L500.2500 #### [facility] [address] [place], [address] Lymphocytes/100 WBC (Bld) 12.7 % Low 19-41 [facility] Comment on above: Performed By: #### L 100.0100, L500.2500 #### [facility] [address] [place], [address] MCH (RBC) [Entitic mass] 31.8 pg Normal 27.0-32.0 [facility] Comment on above: Performed By: #### L 100.0100, L500.2500 #### [facility] [address] [place], [address] MCHC (RBC) [Mass/Vol] 33.4 g/dL Normal 32-36 [facility] Comment on above: Performed By: #### L 100.0100, L500.2500 #### [facility] [address] [place], [address] MCV (RBC) [Entitic vol] 95.2 fL High 80-94 [facility] Comment on above: Performed By: #### L 100.0100, L500.2500 #### [facility] [address] [place], [address] Monocytes/100 WBC (Bld) 20.8 % High 0-10 [facility] Comment on above: Performed By: #### L 100.0100, L500.2500 #### [facility] [address] [place], [address] Neutrophils/100 WBC (Bld) 62.8 % Normal 47-70 [facility] Comment on above: Performed By: #### L 100.0100, L500.2500 #### [facility] [address] [place], [address] Nucleated RBC (Bld) [#/Vol] 0 10*3/uL Normal 0-5 [facility] Comment on above: Performed By: #### L 100.0100, L500.2500 #### [facility] [address] [place], [address] Platelet mean volume (Bld) [Entitic vol] 10.7 fL Normal 6.2-12.0 [facility] Comment on above: Performed By: #### L 100.0100, L500.2500 #### [facility] [address] [place], [address] Platelets (Bld) [#/Vol] 165 10*3/uL Normal 150-450 [facility] Comment on above: Performed By: #### L 100.0100, L500.2500 #### [facility] [address] [place], [address] RBC (Bld) [#/Vol] 3.93 10*6/uL Low 4.6-6.2 [facility] Comment on above: Performed By: #### L 100.0100, L500.2500 #### [facility] [address] [place], [address] RDW SD 50.9 fl High 35.1-43.9 [facility] Comment on above: Performed By: #### L 100.0100, L500.2500 #### [facility] [address] [place], [address] WBC (Bld) [#/Vol] 6.7 10*3/uL Normal 4.4-11.0 [facility] Comment on above: Performed By: #### L 100.0100, L500.2500 #### [facility] [address] [place], [address] Comprehensive Metabolic Prof [facility] 08-24-2024 Albumin [Mass/Vol] 3.4 g/dL Normal 3.4-4.8 [facility] Comment on above: Performed By: #### L 100.0100, L500.2500 #### [facility] [address] [place], [address] Albumin/Globulin [Mass ratio] 0.9 {ratio} Normal 0.9-2.4 [facility] Comment on above: Performed By: #### L 100.0100, L500.2500 #### [facility] [address] [place], [address] ALK PHOS 171 U/L High 40-129 [facility] Comment on above: Performed By: #### L 100.0100, L500.2500 #### [facility] [address] [place], [address] ALT [Catalytic activity/Vol] 25 U/L Normal <=46 [facility] Comment on above: Performed By: #### L 100.0100, L500.2500 #### [facility] [address] [place], [address] AST [Catalytic activity/Vol] 57 U/L High <=37 [facility] Comment on above: Performed By: #### L 100.0100, L500.2500 #### [facility] [address] [place], [address] Bilirubin [Mass/Vol] 1.11 mg/dL Normal 0.00-1.30 [facility] Comment on above: Performed By: #### L 100.0100, L500.2500 #### [facility] [address] [place], [address] BUN/CRE 13.9 RATIO Normal 10-20 [facility] Comment on above: Performed By: #### L 100.0100, L500.2500 #### [facility] Laboratory [address] [place], [address] Calcium [Mass/Vol] 8.7 mg/dL Normal 7.6-11.0 [facility] Comment on above: Performed By: #### L 100.0100, L500.2500 #### [facility] Laboratory [address] [place], [address] Chloride [Moles/Vol] 102 mmol/L Normal 98-108 [facility] Comment on above: Performed By: #### L 100.0100, L500.2500 #### [facility] Laboratory [address] [place], [address] CO2 [Moles/Vol] 22.2 mmol/L Normal 21.0-32.0 [facility] Comment on above: Performed By: #### L 100.0100, L500.2500 #### [facility] Laboratory [address] [place], [address] Creatinine [Mass/Vol] 1.03 mg/dL Normal 0.70-1.20 [facility] Comment on above: Performed By: #### L 100.0100, L500.2500 #### [facility] Laboratory [address] [place], [address] ECRCL 71.82 ml/min Normal 50-250 [facility] Comment on above: Performed By: #### L 100.0100, L500.2500 #### [facility] Laboratory [address] [place], [address] GAP 11 Normal 5-15 [facility] Comment on above: Performed By: #### L 100.0100, L500.2500 #### [facility] Laboratory [address] [place], [address] GFR/1.73 sq M.predicted among non-blacks MDRD (S/P/Bld) [Vol rate/Area] 74 mL/min/{1.73_m2} Normal >60 [facility] Comment on above: Result Comment: mL/m in/1.73m2 CKD-EPI Creatinine Equation (2020) Performed By: #### L 100.0100, L500.2500 #### [facility] Laboratory [address] [place], [address] Globulin (S) [Mass/Vol] 3.8 g/dL Normal 2.2-4.2 [facility] Comment on above: Performed By: #### L 100.0100, L500.2500 #### [facility] Laboratory [address] [place], [address] Glucose [Mass/Vol] 93 mg/dL Normal 70-99 [facility] Comment on above: Performed By: #### L 100.0100, L500.2500 #### [facility] Laboratory [address] [place], [address] Potassium [Moles/Vol] 4.3 mmol/L Normal 3.3-5.1 [facility] Comment on above: Result Comment: Hemo lysis present, Results??could be affected. ?? Performed By: #### L 100.0100, L500.2500 #### [facility] Laboratory [address] [place], [address] Sodium [Moles/Vol] 135 mmol/L Normal 133-145 [facility] Comment on above: Performed By: #### L 100.0100, L500.2500 #### [facility] Laboratory [address] [place], [address] T PROT 7.2 g/dL Normal 5.9-8.4 [facility] Comment on above: Performed By: #### L 100.0100, L500.2500 #### [facility] Laboratory [address] [place], [address] Urea nitrogen [Mass/Vol] 14 mg/dL Normal 4-19 [facility] Comment on above: Performed By: #### L 100.0100, L500.2500 #### [facility] Laboratory [address] [place], [address] Prothrombin Time w/INRon INR Coag (PPP) [Relative time] 1.9 {INR} Normal [facility] Comment on above: Performed By: #### L 100.0100, L500.2500 #### [facility] Laboratory [address] [place], [address] PT Coag (PPP) [Time] 22.5 s High 11.7-14.9 [facility] Comment on above: Performed By: #### L 100.0100, L500.2500 #### [facility] Laboratory [address] [place], [address] Urine Cultureon 08-24-2024 URC Culture exhibits no growth. Normal [facility] Comment on above: Performed By: #### L 100.0100, L500.2500 #### [facility] Laboratory [address] [place], [address] 12 Lead EKGon 08-23-2024 12 Lead EKG [facility] Cardiovascular Services [address] [facility] [place] [address] 12 Lead EKG 08/23/24 0002 MR#: [id number] Acct: [id number] Name: MARKUS NAVA Rep #: [id number] : 1945 79 From: Michael Maldonado MD Attending Dr: Dr. Braden Coto DO Status: ADM IN Ordering Dr: Alon Banks DO Date: 5 Location: [facility] Sex: M C Admitted: 08/23/24 Test Reason : DYSRHYTHMIA Blood Pressure : */* mmHG Vent. Rate : 131 BPM Atrial Rate : * BPM P-R Int : * ms QRS Dur : 146 ms QT Int : 356 ms P-R-T Axes : * -49 45 degrees QTcB Int : 525 ms Atrial fibrillation with rapid ventricular response Left axis deviation Right bundle branch block Abnormal ECG Confirmed by MICHAEL MALDONADO MD ([id number]), desk editor KATELYNN NAGY ([id number]) on 08/25/2024 7:32:19 AM Referred By: [place] Confirmed By: MICHAEL MALDONADO MD 08/25/24 0732 Date Michael Maldonado MD CC: Dr. Alon Banks DO; Dr. Braden Coto DO; Dr. Louie Burns DO Signed Normal [facility] CBC W/Diff, Automatedon 08-03 Absolute Lymph 0.79 X10 3/uL Low 0.83-4.51 [facility] Comment on above: Performed By: #### L 500.4050, L100.0100, L300.3900 ####[facility] [address] [place], [address] Absolute Neut 7.8 X10 3/uL High 2.0-7.7 [facility] Comment on above: Performed By: #### L 500.4050, L100.0100, L300.3900 ####[facility] [address] [place], [address] Basophils/100 WBC (Bld) 0.5 % Normal 0-1 [facility] Comment on above: Performed By: #### L 500.4050, L100.0100, L300.3900 ####[facility] [address] [place], [address] Eosinophils/100 WBC (Bld) 0.4 % Normal 0-5 [facility] Comment on above: Performed By: #### L 500.4050, L100.0100, L300.3900 ####[facility] [address] [place], [address] Erythrocyte distribution width (RBC) [Ratio] 14.5 % Normal 11.6-14.6 [facility] Comment on above: Performed By: #### L 500.4050, L100.0100, L300.3900 ####[facility] [address] [place], [address] Hematocrit (Bld) [Volume fraction] 36.6 % Low 40-54 [facility] Comment on above: Performed By: #### L 500.4050, L100.0100, L300.3900 ####[facility] [address] [place], [address] Hemoglobin (Bld) [Mass/Vol] 12.3 g/dL Low 13.0-16.5 [facility] Comment on above: Performed By: #### L 500.4050, L100.0100, L300.3900 ####[facility] [address] [place], [address] IG% 0.300 Normal 0.0-0.9 [facility] Comment on above: Result Comment: IG% - Immature Granulocytes (promyelocytes, myelocytes and metamyelocytes) > 1% indicates that a LEFT SHIFT is Present. Performed By: #### L 500.4050, L100.0100, L300.3900 ####[facility] [address] [place], [address] Lymphocytes/100 WBC (Bld) 8.0 % Low 19-41 [facility] Comment on above: Performed By: #### L 500.4050, L100.0100, L300.3900 ####[facility] [address] [place], [address] MCH (RBC) [Entitic mass] 31.7 pg Normal 27.0-32.0 [facility] Comment on above: Performed By: #### L 500.4050, L100.0100, L300.3900 ####[facility] [address], [address] MCHC (RBC) [Mass/Vol] 33.6 g/dL Normal 32-36 [facility] Comment on above: Performed By: #### L 500.4050, L100.0100, L300.3900 ####[facility] [address], [address] MCV (RBC) [Entitic vol] 94.3 fL High 80-94 [facility] Comment on above: Performed By: #### L 500.4050, L100.0100, L300.3900 ####[facility] [address] [place], [address] Monocytes/100 WBC (Bld) 12.5 % High 0-10 [facility] Comment on above: Performed By: #### L 500.4050, L100.0100, L300.3900 ####[facility] [address] [place], [address] Neutrophils/100 WBC (Bld) 78.3 % High 47-70 [facility] Comment on above: Performed By: #### L 500.4050, L100.0100, L300.3900 ####[facility] [address] [place], [address] Nucleated RBC (Bld) [#/Vol] 0 10*3/uL Normal 0-5 [facility] Comment on above: Performed By: #### L 500.4050, L100.0100, L300.3900 ####[facility] [address], [address] Platelet mean volume (Bld) [Entitic vol] 10.1 fL Normal 6.2-12.0 [facility] Comment on above: Performed By: #### L 500.4050, L100.0100, L300.3900 ####[facility] [address] [place], [address] Platelets (Bld) [#/Vol] 178 10*3/uL Normal 150-450 [facility] Comment on above: Performed By: #### L 500.4050, L100.0100, L300.3900 ####[facility] [address] [place], [address] RBC (Bld) [#/Vol] 3.88 10*6/uL Low 4.6-6.2 [facility] Comment on above: Performed By: #### L 500.4050, L100.0100, L300.3900 ####[facility] [address] [place], [address] RDW SD 50.4 fl High 35.1-43.9 [facility] Comment on above: Performed By: #### L 500.4050, L100.0100, L300.3900 ####[facility] [address] [place], [address] WBC (Bld) [#/Vol] 9.9 10*3/uL Normal 4.4-11.0 [facility] Comment on above: Performed By: #### L 500.4050, L100.0100, L300.3900 ####[facility] [address] [place], [address] Chest 1 View (Portable)on Chest 1 View (Portable) [facility] Imaging Services [address] [place] [address] Chest 1 View (Portable) MR#: [id number] Acct: [id number] Name: MARKUS NAVA Rep #: [id number] : 1945 M 79 From: Cedrick Melendez MD PCP: Dr. Louie Burns, Status: PRE ER Study: Chest 1 View (Portable) Date of Exam: 08/23/24 Exam# [id number] Ordering Dr: Alon Banks DO PROCEDURE: CHEST 1 VIEW (PORTABLE) 08/23/2024 REASON FOR EXAM: SHORTNESS OF BREATH TECHNIQUE: Frontal view of the chest. COMPARISON: 07/11/2024 FINDINGS: Bilateral costophrenic angle blunting which may be related to pleural thickening or small effusions again noted with associated pleural-parenchymal changes of the bases. Persistent area of medial right lower lobe retrocardiac collapse is seen which may be residual ongoing process at the right base with an infectious pneumonia not excluded. Overall the remainder of the right mid to lower lung is improved from the prior with improved aeration and smaller mostly resolved appearing pleural effusion suggested. Status post median sternotomy and aortic valve replacement again noted. Cardiac silhouette again appears enlarged for technique. RAD/Chest 1 View (Portable) IMPRESSION: Bilateral costophrenic angle blunting which may be related to pleural thickening or small effusions again noted with associated pleural-parenchymal changes of the bases. Persistent area of medial right lower lobe retrocardiac collapse is seen which may be residual ongoing process at the right base with an infectious pneumonia not excluded. Overall the remainder of the right mid to lower lung is improved from the prior with improved aeration and smaller mostly resolved appearing pleural effusion suggested. Status post median sternotomy and aortic valve replacement again noted. Cardiac silhouette again appears enlarged for technique. Reading Location: [id number] CC: Dr. Alon Banks, DO; Dr. Louie Burns, DO Lay Out Drafter: Signed Normal [facility] Comprehensive Metabolic Prof ilon 08-23-2024 Albumin [Mass/Vol] 3.3 g/dL Low 3.4-4.8 [facility] Comment on above: Performed By: #### L 500.4050, L100.0100, L300.3900 ####[facility] [address], [address] Albumin/Globulin [Mass ratio] 0.9 {ratio} Normal 0.9-2.4 [facility] Comment on above: Performed By: #### L 500.4050, L100.0100, L300.3900 ####[facility] [address], [address] ALK PHOS 168 U/L High 40-129 [facility] Comment on above: Performed By: #### L 500.4050, L100.0100, L300.3900 ####[facility] [address] [place], [address] ALT [Catalytic activity/Vol] 25 U/L Normal <=46 [facility] Comment on above: Performed By: #### L 500.4050, L100.0100, L300.3900 ####[facility] [address], [address] AST [Catalytic activity/Vol] 53 U/L High <=37 [facility] Comment on above: Performed By: #### L 500.4050, L100.0100, L300.3900 ####[facility] [address] [place], [address] Bilirubin [Mass/Vol] 1.18 mg/dL Normal 0.00-1.30 [facility] Comment on above: Performed By: #### L 500.4050, L100.0100, L300.3900 ####[facility] [address] [place], [address] BUN/CRE 15.2 RATIO Normal 10-20 [facility] Comment on above: Performed By: #### L 500.4050, L100.0100, L300.3900 ####[facility] [address] [place], [address] Calcium [Mass/Vol] 8.5 mg/dL Normal 7.6-11.0 [facility] Comment on above: Performed By: #### L 500.4050, L100.0100, L300.3900 ####[facility] [address] [place], [address] Chloride [Moles/Vol] 103 mmol/L Normal 98-108 [facility] Comment on above: Performed By: #### L 500.4050, L100.0100, L300.3900 ####[facility] [address] [place], [address] CO2 [Moles/Vol] 20.3 mmol/L Low 21.0-32.0 [facility] Comment on above: Performed By: #### L 500.4050, L100.0100, L300.3900 ####[facility] [address] [place], [address] Creatinine [Mass/Vol] 1.28 mg/dL High 0.70-1.20 [facility] Comment on above: Performed By: #### L 500.4050, L100.0100, L300.3900 ####[facility] [address] [place], [address] ECRCL 57.43 ml/min Normal 50-250 [facility] Comment on above: Performed By: #### L 500.4050, L100.0100, L300.3900 ####[facility] [address] [place], [address] GAP 12 Normal 5-15 [facility] Comment on above: Performed By: #### L 500.4050, L100.0100, L300.3900 ####[facility] [address] [place], [address] GFR/1.73 sq M.predicted among non-blacks MDRD (S/P/Bld) [Vol rate/Area] 57 mL/min/{1.73_m2} Low >60 [facility] Comment on above: Result Comment: mL/m in/1.73m2 CKD-EPI Creatinine Equation (2020) Performed By: #### L 500.4050, L100.0100, L300.3900 ####[facility] [address] [place], [address] Globulin (S) [Mass/Vol] 3.7 g/dL Normal 2.2-4.2 [facility] Comment on above: Performed By: #### L 500.4050, L100.0100, L300.3900 ####[facility] [address] [place], [address] Glucose [Mass/Vol] 134 mg/dL High 70-99 [facility] Comment on above: Performed By: #### L 500.4050, L100.0100, L300.3900 ####[facility] [address] [place], [address] Potassium [Moles/Vol] 4.4 mmol/L Normal 3.3-5.1 [facility] Comment on above: Performed By: #### L 500.4050, L100.0100, L300.3900 ####[facility] [address], [address] Sodium [Moles/Vol] 135 mmol/L Normal 133-145 [facility] Comment on above: Performed By: #### L 500.4050, L100.0100, L300.3900 ####[facility] [address] [place], [address] T PROT 7.0 g/dL Normal 5.9-8.4 [facility] Comment on above: Performed By: #### L 500.4050, L100.0100, L300.3900 ####[facility] [address] [place], [address] Urea nitrogen [Mass/Vol] 19 mg/dL Normal 4-19 [facility] Comment on above: Performed By: #### L 500.4050, L100.0100, L300.3900 ####[facility] [address], [address] Albumin [Mass/Vol] 4.0 g/dL Normal 3.4-4.8 [facility] Comment on above: Performed By: #### L 500.4050, L100.0100, L300.4310, L300.3900, L503.6005, M200.1000 #### [facility] Laboratory [address] [place], [address] Albumin/Globulin [Mass ratio] 0.9 {ratio} Normal 0.9-2.4 [facility] Comment on above: Performed By: #### L 500.4050, L100.0100, L300.4310, L300.3900, L503.6005, M200.1000 #### [facility] Laboratory [address] [place], [address] ALK PHOS 214 U/L High 40-129 [facility] Comment on above: Performed By: #### L 500.4050, L100.0100, L300.4310, L300.3900, L503.6005, M200.1000 #### [facility] Laboratory [address] [place], [address] ALT [Catalytic activity/Vol] 32 U/L Normal <=46 [facility] Comment on above: Performed By: #### L 500.4050, L100.0100, L300.4310, L300.3900, L503.6005, M200.1000 #### [facility] Laboratory [address] [place], [address] AST [Catalytic activity/Vol] 60 U/L High <=37 [facility] Comment on above: Performed By: #### L 500.4050, L100.0100, L300.4310, L300.3900, L503.6005, M200.1000 #### [facility] Laboratory [address] [place], [address] Bilirubin [Mass/Vol] 1.47 mg/dL High 0.00-1.30 [facility] Comment on above: Performed By: #### L 500.4050, L100.0100, L300.4310, L300.3900, L503.6005, M200.1000 #### [facility] Laboratory [address] [place], [address] BUN/CRE 15.3 RATIO Normal 10-20 [facility] Comment on above: Performed By: #### L 500.4050, L100.0100, L300.4310, L300.3900, L503.6005, M200.1000 #### [facility] Laboratory [address] [place], [address] Calcium [Mass/Vol] 9.5 mg/dL Normal 7.6-11.0 [facility] Comment on above: Performed By: #### L 500.4050, L100.0100, L300.4310, L300.3900, L503.6005, M200.1000 #### [facility] Laboratory [address] [place], [address] Chloride [Moles/Vol] 98 mmol/L Normal 98-108 [facility] Comment on above: Performed By: #### L 500.4050, L100.0100, L300.4310, L300.3900, L503.6005, M200.1000 #### [facility] Laboratory [address] [place], [address] CO2 [Moles/Vol] 25.2 mmol/L Normal 21.0-32.0 [facility] Comment on above: Performed By: #### L 500.4050, L100.0100, L300.4310, L300.3900, L503.6005, M200.1000 #### [facility] Laboratory [address] [place], [address] Creatinine [Mass/Vol] 1.27 mg/dL High 0.70-1.20 [facility] Comment on above: Performed By: #### L 500.4050, L100.0100, L300.4310, L300.3900, L503.6005, M200.1000 #### [facility] Laboratory [address] [place], [address] ECRCL 58.28 ml/min Normal 50-250 [facility] Comment on above: Performed By: #### L 500.4050, L100.0100, L300.4310, L300.3900, L503.6005, M200.1000 #### [facility] Laboratory [address] [place], [address] GAP 10 Normal 5-15 [facility] Comment on above: Performed By: #### L 500.4050, L100.0100, L300.4310, L300.3900, L503.6005, M200.1000 #### [facility] Laboratory [address] [place], [address] GFR/1.73 sq M.predicted among non-blacks MDRD (S/P/Bld) [Vol rate/Area] 57 mL/min/{1.73_m2} Low >60 [facility] Comment on above: Result Comment: mL/m in/1.73m2 CKD-EPI Creatinine Equation (2020) Performed By: #### L 500.4050, L100.0100, L300.4310, L300.3900, L503.6005, M200.1000 #### [facility] Laboratory [address] [place], [address] Globulin (S) [Mass/Vol] 4.5 g/dL High 2.2-4.2 [facility] Comment on above: Performed By: #### L 500.4050, L100.0100, L300.4310, L300.3900, L503.6005, M200.1000 #### [facility] Laboratory [address] [place], [address] Glucose [Mass/Vol] 89 mg/dL Normal 70-[facility] [facility] Comment on above: Performed By: #### L 500.4050, L100.0100, L300.4310, L300.3900, L503.6005, M200.1000 #### [facility] Laboratory [address] [place], [address] Potassium [Moles/Vol] 5.1 mmol/L Normal 3.3-5.1 [facility] Comment on above: Performed By: #### L 500.4050, L100.0100, L300.4310, L300.3900, L503.6005, M200.1000 #### [facility] Laboratory [address] [place], [address] Sodium [Moles/Vol] 133 mmol/L Normal 133-145 [facility] Comment on above: Performed By: #### L 500.4050, L100.0100, L300.4310, L300.3900, L503.6005, M200.1000 #### [facility] Laboratory [address] [place], [address] T PROT 8.5 g/dL High 5.9-8.4 [facility] Comment on above: Performed By: #### L 500.4050, L100.0100, L300.4310, L300.3900, L503.6005, M200.1000 #### [facility] Laboratory [address] [place], [address] Urea nitrogen [Mass/Vol] 19 mg/dL Normal 4-19 [facility] Comment on above: Performed By: #### L 500.4050, L100.0100, L300.4310, L300.3900, L503.6005, M200.1000 #### [facility] Laboratory [address] [place], [address] Emergency Department Summary on 08-23-2024 Emergency Department Summary [facility] Medical Records Department [address] [address] Emergency Department Summary 08/23/24 MR#: [id number] Acct: [id number] Name: MARKUS NAVA Rep #: [id number] : 1945 79 From: Alon Banks DO PCP: Dr. Louie Burns, Status:ADM IN Location: [place] [address] HPI History of Present Illness Chief Complaint: Shortness of Breath Narrative Narrative: Chief complaint and HPI: Shortness of breath and flulike symptoms. 79-year-old male with paroxysmal atrial fibrillation on warfarin, HTN, HLD, cardiomyopathy, aortic valve replacement presents for e valuation of shortness of breath and flulike symptoms. Onset 2 days ago. Patient states he developed shortness of breath, cough, congestion, rhinorrhea, fever. Shortness of breath increased this evening in which he called EMS. Patient denies any sick contacts that he knows of. Denies any chest pain, nausea, vomiting, diarrhea, dysuria. At baseline patient states he has bilateral peripheral edema that is not any worse. Review of systems: See HPI Medications: As listed on the chart Allergies: As listed on the chart PFSH: Per chart Vital signs: As listed on the chart. Reviewed. Physical exam: Gen: A O x3, unwell appearing Head: Normocephalic, atraumatic Eyes: No sclera icterus, conjunctiva clear, PERRL, EOMI ENT: Mildly dry mucous membranes Neck: Trachea midline, No JVD CV: Tachycardic, irregularly irregular rhythm, no murmurs, + 2 pitting peripheral edema Resp: Lungs coarse bilaterally diminished in the bases, on 2 L nasal cannula, tachypneic GI: Abd soft, non-distended, non-tender, no r/r/g Musc: Full ROM, no deformity Skin: Warm, dry Neuro: Alert, oriented, grossly intact, sensation intact Psych: Cooperative, appropriate mood and affect [facility] Medical History Bacteremia Pleural effusion, right History of Clostridioides difficile colitis Crohn's disease History of atrial fibrillation History of endocarditis Hiatal hernia Incisional hernia Diverticulitis Scarlet fever Kidney stones Anemia Pseudomembranous colitis group home current use of anticoagulant Pure hypercholesterolemia Essential hypertension Other correction (current) drug therapy Nonrheumatic aortic (valve) insufficiency Nonrheumatic pulmonary valve insufficiency 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 Gastrointestinal bleed Post traumatic stress disorder Panic disorder Anxiety Streptococcal endocarditis Colovesical fistula Anxiety disorder History of endocarditis Home Medications ???Medication ???Instructions ???Recorded ???Last Taken ???Type ferrous sulfate 325 mg (65 mg 325 mg PO LUNCH suppliment #30 tab s 05/04/23 Unknown Rx iron) tablet (FeroSul) melatonin 10 mg capsule 10 mg PO QHS SLEEP 30 days #0 caps 05/04/23 04/24/23 Rx lorazepam 0.5 mg tablet 0.5 mg PO BID anxiety 05/21/23 History warfarin 1 mg tablet 1 mg PO .COMPLEX BLOOD THINNER 01/21/24 Rx #180 tabs warfarin 5 mg tablet 5 mg PO .COMPLEX BLOOD THINNER #90 08/02/23 01/21/24 Rx tabs metoprolol tartrate 50 mg tablet 50 mg PO BID BLOOD PRESSURE #180 0 12/17/23 01/21/24 Rx TABLETS duloxetine 60 mg capsule,delayed 60 mg PO DAILY DEPRESSION #90 cap s 12/24/23 01/21/24 Rx release ascorbic acid (vitamin C) 500 mg 500 mg PO DAILY suppliment 4 Unknown History tablet (C-500) b12 gummy 1 gummy PO DAILY suppliment Unknown History doxycycline hyclate 100 mg capsule 100 mg PO BID 08/23/24 Unknown H istory nystatin 100,000 unit/gram topical 1 applic topical BID 08/23/24 Un known History powder (Nyamyc) triamcinolone acetonide 0.1 % 1 applic topical TID PRN PRN 08/23 Unknown History topical cream affected area Allergy/AdvReac Type Severity Reaction Status Date / Time fentanyl Allergy Severe Other Verified 08/23/24 00:06 levofloxacin AdvReac Severe Passed out Verified 08/23/24 00:06 Family History (Updated 08/23/24 @ 02:[address] Krys Bull MD) Father CAD (coronary artery disease) Heart disease Hypertension Myocardial infarction Mother Rheumatic fever Heart disease Surgical History History of prosthetic heart valve History of colonoscopy ( 04/2023) History of mechanical aortic valve replacement History of herniorrhaphy History of colon resection H/O pulmonic valve replacement Social History household members: none Smoking Status: Former smoker how long ago did patient quit smokin years ago alcohol intake: current alcohol intake frequency: holidays/special occasions only Alcohol type: beer details: social caffeine: Yes Type: (more content not included)... Normal [facility] Gram Stainon 08-23-2024 GS Acceptable Specimen? Yes (<25 Epithelial cells per/lpf) Gram Stain 2+ White Blood Cells 2+ Gram positive cocci Rare Epithelial cells Normal [facility] Comment on above: Performed By: #### L 100.0100, L500.2500 #### [facility] Laboratory [address] [place], [address] H AND P Exam - Hospitaliston 08-23-2024 H&P Exam - Hospitalist [facility] Medical Records Department [address] [place] [address] H P Exam - Hospitalist 08/23/24 0229 MR#: [id number] Acct: [id number] Name: MARKUS NAVA Rep #: [id number] : 1945 79 From: Krys Bull MD PCP: Dr. Louie Burns, DO Status:ADM IN Location: [facility] NWO417-0 HPI - General General Date of Admission: 08/23/24 Date of Service: 08/23/24 Chief Complaint: Dyspnea, cough, congestion, rhinorrhea, fever. HPI Narrative The patient is a 79 y/o M w/ PMHx: CKD stage II per GFR trending, Crohn's disease, Hx C-difficile colitis, Chronic anemia, PAF, Anxiety and Depression/Panic diosrder/PTSD, Hx Endocarditis, Valvular Heart Disease s/p mechanical AVR, Pulmonic valve replacement, Former tobacco use who presents to the [facility] ED on 08/23/24 with history of progressively worsening dyspnea, fatigue, malaise, cough as well as congestion and rhinorrhea not improving prompting eventual ED evaluation to be cautious. Workup in the ED included T11.8, heart rate 122, BP 123/78, respiratory rate 19, 88% on room air with most recent repeat vitals T101.9, heart rate 129, BP 123/78, respiratory rate 26, 94% on 2 L nasal cannula, CBC with WBC 11.4, hemoglobin 13.8, MCV 94.2, platelet 222 with left shift and lymphopenia, coags with INR 2.6, PT 28.4, PTT 40.7, CMP with BUN/creat 19/1.27, GFR 57, lactic acid 1.3, T. bili 1.47, AST/LT 60/32, alk phos 214, troponin 35, BNP 3418, chest x-ray with bilateral costophrenic angle blunting possibly related to pleural thickening or small effusions with pleural parenchymal changes at the base, persistent area medial right lower lobe retrocardiac collapse possibly residual ongoing process at the right base possibly infectious pneumonia, overall remained the right mid to lower lung improved from previous, status post median sternotomy and aortic valve replacement noted EKG with atrial fibrillation with RVR with known right bundle branch block with rate 131, blood culture x 2 pending per ED, urine culture and urinalysis pending per ED. In the ED patient ministered 1 L normal saline, DuoNeb therapy, Tylenol 1000 mg p.o. x 1, azithromycin 500 mg IV x 1, Rocephin 1 g IV x 1. [facility] Medical History Bacteremia Pleural effusion, right History of Clostridioides difficile colitis Crohn's disease History of atrial fibrillation History of endocarditis Hiatal hernia Incisional hernia Diverticulitis Scarlet fever Kidney stones Anemia Pseudomembranous colitis buttermaker current use of anticoagulant Pure hypercholesterolemia Essential hypertension Other buttermaker (current) drug therapy Nonrheumatic aortic (valve) insufficiency Nonrheumatic pulmonary valve insufficiency 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 Gastrointestinal bleed Post traumatic stress disorder Panic disorder Anxiety Streptococcal endocarditis Colovesical fistula Anxiety disorder History of endocarditis Home Medications ???Medication ???Instructions ???Recorded ???Last Taken ???Type ferrous sulfate 325 mg (65 mg 325 mg PO LUNCH suppliment #30 tab s 05/04/23 Unknown Rx iron) tablet (FeroSul) melatonin 10 mg capsule 10 mg PO QHS SLEEP 30 days #0 caps 05/04/23 04/24/23 Rx lorazepam 0.5 mg tablet 0.5 mg PO BID anxiety 05/21/23 History warfarin 1 mg tablet 1 mg PO .COMPLEX BLOOD THINNER 01/21/24 Rx #180 tabs warfarin 5 mg tablet 5 mg PO .COMPLEX BLOOD THINNER #90 08/02/23 01/21/24 Rx tabs metoprolol tartrate 50 mg tablet 50 mg PO BID BLOOD PRESSURE #180 0 12/17/23 01/21/24 Rx TABLETS duloxetine 60 mg capsule,delayed 60 mg PO DAILY DEPRESSION #90 cap s 12/24/23 01/21/24 Rx release ascorbic acid (vitamin C) 500 mg 500 mg PO DAILY suppliment 4 Unknown History tablet (C-500) b12 gummy 1 gummy PO DAILY suppliment Unknown History doxycycline hyclate 100 mg capsule 100 mg PO BID 08/23/24 Unknown H istory nystatin 100,000 unit/gram topical 1 applic topical BID 08/23/24 Un known History powder (Nyamyc) triamcinolone acetonide 0.1 % 1 applic topical TID PRN PRN 08/23 Unknown History topical cream affected area Allergy/AdvReac Type Severity Reaction Status Date / Time fentanyl Allergy Severe Other Verified 08/23/24 00:06 levofloxacin AdvReac Severe Passed out Verified 08/23/24 00:06 Family History (Updated 08/23/24 @ 02:[address] Krys Bull MD) Father CAD (coronary artery disease) Heart disease Hypertension Myocardial infarction Mother Rheumatic fever Heart disease Surgical History History of prosthetic heart valve History of colonoscopy ( 04/2023) History of mechanical aortic valve replacement History of herniorrhaphy History of colon r (more content not included)... Normal [facility] L499.0042on 08-23-2024 Trop T High Sen 33 ng/L High <=22 [facility] Comment on above: Performed By: #### L 499.0042 ####[facility] [id number] [facility] [place], [address] L499.0043on 08-23-2024 Trop T High Sen 40 ng/L High <=22 [facility] Comment on above: Performed By: #### L 501.4021 #### [facility] Laboratory [address] [place], [address] L501.4021on 08-23-2024 Trop T High Sen 35 ng/L High <=22 [facility] Comment on above: Performed By: #### L 501.4021 #### [facility] Laboratory [address] [place], [address] L503.7505on 08-23-2024 Natriuretic peptide B (Bld) [Mass/Vol] 3418 pg/mL High <=1800 [facility] Comment on above: Result Comment: Hear t Failure Unlikely: < 300 pg/mL Heart Failure Likely < 50 Years: > 450 pg/mL 50-75 Years: > 900 pg/mL >75 Years: > 1800 pg/mL Performed By: #### L 501.4021 #### [facility] Laboratory [address] [place], [address] Lactic Acidon 08-23-2024 Lactate [Moles/Vol] 1.3 mmol/L Normal 0.0-2.0 [facility] Comment on above: Order Comment: Y Performed By: #### L 500.4050, L100.0100, L300.4310, L300.3900, L503.6005, M200.1000 #### [facility] Laboratory [address] [place], [address] Legionella Antigen Urineon 0 08-23-2024 LEGU Legionella Ag, Urine Negative (See interpretation below) Normal [facility] Comment on above: Performed By: #### L 100.0100, L500.2500 #### [facility] Laboratory [address] [place], [address] M100.678on 08-23-2024 M100.678 SARS-CoV-2 (COVID 19 ) Negative INFLUENZA A Negative INFLUENZA B Negative RSV PCR Negative Normal [facility] Comment on above: Performed By: #### L 100.0100, L500.2500 #### [facility] Laboratory [address] [place], [address] Magnesiumon 08-23-2024 Magnesium [Mass/Vol] 1.7 mg/dL Normal 1.5-2.2 [facility] Comment on above: Order Comment: Comme nts: may add to ED labs Performed By: #### L 501.4021 #### [facility] Laboratory [address] [place], [address] Partial Thromboplast Timeon 08-23-2024 aPTT Coag (Bld) [Time] 40.7 s High 24.1-36.2 [facility] Comment on above: Performed By: #### L 500.4050, L100.0100, L300.4310, L300.3900, L503.6005, M200.1000 ####[facility] [address] [place], [address] Prothrombin Time w/INRon INR Coag (PPP) [Relative time] 2.5 {INR} Normal [facility] Comment on above: Performed By: #### L 500.4050, L100.0100, L300.3900 ####[facility] [address] [place], [address] PT Coag (PPP) [Time] 27.9 s High 11.7-14.9 [facility] Comment on above: Performed By: #### L 500.4050, L100.0100, L300.3900 ####[facility] [address] [place], [address] INR Coag (PPP) [Relative time] 2.6 {INR} Normal [facility] Comment on above: Performed By: #### L 500.4050, L100.0100, L300.4310, L300.3900, L503.6005, M200.1000 #### [facility] Laboratory [address] [place], [address] PT Coag (PPP) [Time] 28.4 s High 11.7-14.9 [facility] Comment on above: Performed By: #### L 500.4050, L100.0100, L300.4310, L300.3900, L503.6005, M200.1000 #### [facility] Laboratory [address] [place], [address] RESPIRATORY PANEL MOLECULARo n 08-23-2024 RP PANEL Normal Reference Range = Not Detected Nucleic acid amplification test method ADENOVIRUS Not Detected INFLUENZA A Not Detected INFLUENZA A (SUBTYPE H1) Not Detected INFLUENZA A (SUBTYPE H3) Not Detected INFLUENZA B Not Detected HUMAN METAPHNEUMO Not Detected PARAINFLUENZA 1 Not Detected PARAINFLUENZA 2 Not Detected PARAINFLUENZA 3 Not Detected PARAINFLUENZA 4 Not Detected RHINOVIRUS Not Detected RSV A Not Detected RSV B Not Detected Normal [facility] Comment on above: Performed By: #### L 100.0100, L500.2500 #### [facility] [address] [place], [address] Strep pneumoniae Antig(UR,CS F)on 08-23-2024 STPAG URINE INTERPRETATION Strep pneumoniae Antig(UR,CSF) Negative Urine Presumptive negative for pneumococcal pneumonia, suggesting no current or recent pneumococcal infection. Infection due to S pneumoniae cannot be ruled out since the antigen present in the sample may be below the detection limit of the test. Strep pneumo Test Negative URINE (See interpretation below) Normal [facility] Comment on above: Performed By: #### L 100.0100, L500.2500 #### [facility] Laboratory [address] [facility] [place], [address] Urinalysis, Completeon 08-23 RBC 0 SEEN Normal 0-5 [facility] Comment on above: Order Comment: COLLE CTOR TO SPECIFY Performed By: #### L 100.0100, L500.2500 #### [facility] Laboratory [address] [facility] [place], [address] WBC 0-5 SEEN Normal 0-5 [facility] Comment on above: Order Comment: COLLE CTOR TO SPECIFY Performed By: #### L 100.0100, L500.2500 #### [facility] [address] [facility] [place], [address] BACTERIA 0 SEEN Normal None Seen [facility] Comment on above: Order Comment: COLLE CTOR TO SPECIFY Performed By: #### L 100.0100, L500.2500 #### [facility] Laboratory [address] [place], [address] EPI,SQUAMOUS 0 SEEN Normal 0-5 [facility] Comment on above: Order Comment: COLLE CTOR TO SPECIFY Performed By: #### L 100.0100, L500.2500 #### [facility] Laboratory [address] [place], [address] Mucus Ql (Urine sed) 0 SEEN Normal [facility] Comment on above: Order Comment: COLLE CTOR TO SPECIFY Performed By: #### L 100.0100, L500.2500 #### [facility] Laboratory [address] [place], [address] Respiratory Cultureon 2024 RESPC Mixed normal respiratory kelby. No Haemophilus, Streptococcus pneumoniae, beta-hemolytic Streptococcus or Staphylococcus aureus isolated. Normal [facility] Comment on above: Performed By: #### M 100.2000, M100.2400 ####[facility] [id number] [place], [address] Gram Stainon 07-12-2024 GS Acceptable Specimen? Yes (<25 Epithelial cells per/lpf) Gram Stain 3+ White Blood Cells 2+ Gram positive cocci Rare Epithelial cells Normal [facility] Comment on above: Performed By: #### M 100.2000, M100.2400 ####[facility] [address] [place] [place], [address] Chest PA and Lateralon 07-11 Chest PA and Lateral [facility] Imaging Services [address] [place] [address] Chest PA and Lateral MR#: [id number] Acct: [id number] Name: MARKUS NAVA Rep #: [id number] : 1945 M 79 From: Louie Ritter MD PCP: Dr. Louie Burns DO Status: REG CLI Study: Chest PA and Lateral Date of Exam: 07/11/24 Exam# [id number] Ordering Dr: Louie Burns DO EXAM: XR Chest, 2 Views CLINICAL INDICATION: TECHNIQUE: Frontal and lateral views of the chest. COMPARISON: No relevant prior studies available. FINDINGS: LUNGS AND PLEURAL SPACES: Left lower lobe atelectasis or pneumonia. Bilateral pleural effusions. HEART: Cardiomegaly with mild congestion. MEDIASTINUM: Unremarkable. Normal mediastinal contour. BONES/JOINTS: Unremarkable. No acute fracture. RAD/Chest PA and Lateral IMPRESSION: 1. Left lower lobe atelectasis or pneumonia. 2. Cardiomegaly with mild congestion. 3. Bilateral pleural effusions. [facility] CC: Dr. Louie Burns DO Lay Out Drafter: Signed Normal [facility] Emergency Department Summary on 05-09-2024 Emergency Department Summary [facility] Medical Records Department [address] [place] [address] Emergency Department Summary 05/09/24 MR#: [id number] Acct: [id number] Name: MARKUS NAVA Rep #: [id number] : 1945 79 From: Jeancarlos Young PCP: Dr. Louie Burns DO Status:DEP ER Location: ED HPI History of Present Illness Chief Complaint: Nosebleed Informant: patient Narrative Narrative: Right side epistaxis prior to arrival. He is on warfarin. This is for paroxysmal A-fib. Unclear on his last INR check. Denies digital manipulation or blowing his nose. States there is mild bleed he bent over bled heavily for 10 minutes it stopped. He has had none since. No issues of similar in the past. He states his he is on he does not have a humidifier. 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 GI bleeding group home current use of anticoagulant group home current use of anticoagulant Pure hypercholesterolemia Essential hypertension Other correction (current) drug therapy Nonrheumatic aortic (valve) insufficiency Nonrheumatic pulmonary valve insufficiency Palpitations group home (current) use of anticoagulants Gastrointestinal bleed Post traumatic stress disorder Panic disorder Anxiety Streptococcal endocarditis Colovesical fistula Sigmoid diverticulitis E coli bacteremia Fever Pneumaturia Gram-negative bacteremia Acute cystitis Acute diverticulitis Anxiety disorder History of endocarditis Home Medications ???Medication ???Instructions ???Recorded ???Last Taken ???Type ferrous sulfate 325 mg (65 mg 325 mg PO LUNCH suppliment #30 tabs 05/04/23 Unknown Rx iron) tablet (FeroSul) melatonin 10 mg capsule 10 mg PO QHS SLEEP 30 days #0 caps 05/04/23 04/24/23 Rx lorazepam 0.5 mg tablet 0.5 mg PO BID anxiety 05/21/23 01/21/24 History warfarin 1 mg tablet 1 mg PO .COMPLEX BLOOD THINNER 08/02/23 01/21/24 Rx #180 tabs warfarin 5 mg tablet 5 mg PO .COMPLEX BLOOD THINNER #90 08/02/23 01/21/24 Rx tabs metoprolol tartrate 50 mg tablet 50 mg PO BID BLOOD PRESSURE #180 12/17/23 01/21/24 Rx TABLETS duloxetine 60 mg capsule,delayed 60 mg PO DAILY DEPRESSION #90 caps 12/24/23 01/21/24 Rx release ascorbic acid (vitamin C) 500 mg 500 mg PO DAILY suppliment 01/19/24 Unknown History tablet (C-500) cephalexin 500 mg capsule 1,000 mg PO TID antibiotic 01/21/24 01/21/24 History b12 gummy 1 gummy PO DAILY suppliment 01/26/24 Unknown History cefazolin 2 gram intravenous 2 g IV Q8H 21 days 01/28/24 Unknown Rx solution Allergy/AdvReac Type Severity Reaction Status Date / Time fentanyl Allergy Severe Other Verified 05/09/24 16:23 levofloxacin AdvReac Severe Passed out Verified 05/09/24 16:23 Family History Father CAD (coronary artery disease) Surgical History History of prosthetic heart valve History of colonoscopy ( 04/2023) History of mechanical aortic valve replacement History of herniorrhaphy History of colon resection H/O pulmonic valve replacement Social History Smoking Status: Former smoker how long ago did patient quit smokin years ago alcohol intake: current alcohol intake frequency: holidays/special occasions only Alcohol type: beer details: social caffeine: Yes Type: coffee Number of servings: 1 ROS ROS ED Constitutional Constitutional ED: Denies chills, fever(s) or sweats ENT ENT ED: Reports other Details: Right side nasal bleed ; Denies dysphagia or sore throat Cardiovascular Cardiovascular: Denies chest pain Respiratory/Chest Respiratory/Chest: Denies cough Gastrointestinal Gastrointestinal: Denies abdominal pain, diarrhea, nausea or vomiting Genitourinary Genitourinary ED: Denies hematuria Musculoskeletal Musculoskeletal: Denies back pain, extremity pain or neck pain Integumentary Denies rash or wounds Neurologic Neurologic: Denies headache(s), paresthesias or weakness EXAM Physical Exam Const Vital Signs: 05/09/24 16:20 Temperature 97.8 F Temperature Source Oral Pulse Rate 78 Respiratory Rate 16 Blood Pressure 105/59 L Blood Pressure Mean 74 Pulse Ox 99 Oxygen Delivery Method Nasal Cannula Positive well nourished and well developed General Appearance ED: well developed and N (more content not included)... Normal [facility] Prothrombin Time w/INRon INR Coag (PPP) [Relative time] 2.7 {INR} Normal [facility] Comment on above: Performed By: #### L 501.4021 #### [facility] Laboratory [address] [place], [place], [id number] PT Coag (PPP) [Time] 28.7 s High 11.7-14.9 [facility] Comment on above: Performed By: #### L 501.4021 #### [facility] Laboratory [address] [place], [place], [id number] ECHOCARDIOGRAM TRANSESOPHAGE AL (FER)on 08-10-2023 ECHOCARDIOGRAM TRANSESOPHAGEAL (FER) Test aborted as patient was unable to be properly sedated. Was given 7mg of Versed (unable to get Fentanyl given past adverse reaction) and still not sedated and very uncomfortable. Recommend rescheduling with general anesthesia. Table formatting from the original result was not included. Images from the original result were not included. 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 Informed consent was obtained. All staff members involved in the procedure completed a timeout prior to the start of the procedure verifying correct patient identity and correct procedure to be performed. A transesophageal echocardiography study (including agitated saline contrast study) was performed. Total time physician provided peyk-do-zeif service beginning with the administration of sedation [...] Date/Status Modality Department 08/10/2023 Arrived FER TESTING, [facility] ECHOCARDIOGRAPHY ROSS Begin Exam End Exam 08/10/2023 [...] FER Is (more content not included)... Normal [facility] Test aborted as patient was unable [...] the patient/family member and/or their power of employment law attorney. Informed consent was obtained. All staff members involved in the procedure completed a timeout prior to the start of the procedure verifying correct patient identity and correct procedure to be performed. A transesophageal echocardiography study (including agitated saline contrast study) was performed. Total time physician provided tugf-kq-lvsh service beginning with the administration of sedation medications until the patient was sufficiently recovered after the procedure was 25 minutes. FER probe type used: Kristopher. Patient reaction to probe was poor. Indications for study: endocarditis / bacteremia. Complications include unsuccessful esophageal intubation. [facility] Radiology Study observation (narrative) [facility] ECHOCARDIOGRAM TRANSESOPHAGE AL (FER)Ordered By: Radha Gunter on 08-10-2023 [facility] Work Phone: Basic metabolic 2000 panelon 07-23-2023 Anion gap [Moles/Vol] 13 mmol/L Normal 9-18 [facility] Comment on above: Order Comment: Speci men Type: BLOOD SPECIMEN Ordering Facility: External Submitter Address: , , Performed By: #### 2 4325-3, 60519-0 #### [facility] CLIA [id number] [address] [place] [address] [place] Calcium [Mass/Vol] 8.7 mg/dL Normal 8.5-10.[address] [facility] Comment on above: Order Comment: Speci men Type: BLOOD SPECIMEN Ordering Facility: External Submitter Address: , , Performed By: #### 2 4325-3, #### [facility] CLIA [id number] [address] [place] [id number] [place] Chloride [Moles/Vol] 102 mmol/L Normal 97-105 [facility] Comment on above: Order Comment: Speci men Type: BLOOD SPECIMEN Ordering Facility: External Submitter Address: , , Performed By: #### 2 4325-3, #### [facility] CLIA [id number] [address] [place] [address] [place] CO2 [Moles/Vol] 23 mmol/L Normal 22-30 [facility] Comment on above: Order Comment: Speci men Type: BLOOD SPECIMEN Ordering Facility: External Submitter Address: , , Performed By: #### 2 4325-3, #### [facility] CLIA [id number] [address] [place] [address] [place] Creatinine [Mass/Vol] 0.95 mg/dL Normal 0.73-1.22 [facility] Comment on above: Order Comment: Speci men Type: BLOOD SPECIMEN Ordering Facility: External Submitter Address: , , Performed By: #### 2 4325-3, #### [facility] CLIA [id number] [address] [place] [address] [place] Creatinine and Glomerular filtration rate.predicted panel (S/P/Bld) 82 mL/min/1.73m??? Normal >=60 [facility] Comment on above: Order Comment: Speci men [...] actual GFR. Performed By: #### 2 4325-3, 58013-0 #### [facility] CLIA [id number] [address] [address] [place] Glucose [Mass/Vol] 83 mg/dL Normal 74-[address] [facility] Comment on above: Order Comment: Speci men Type: BLOOD SPECIMEN Ordering Facility: External Submitter Address: , , Result Comment: The [place] [employer] (ADA) provides guidance for cutoff [...] Standards of Medical Care in Diabetes 2016, [place] [employer]. Diabetes Care. 2016.39(Suppl 1). Performed By: #### 2 3, #### [facility] CLIA [id number] [address] [place] [id number] [place] Potassium [Moles/Vol] 4.5 mmol/L Normal 3.7-5.1 [facility] Comment on above: Order Comment: Vannai myles Type: BLOOD SPECIMEN Ordering Facility: External Submitter Address: , , Performed By: #### 2 4325-3, #### [facility] CLIA [id number] [address] [address] [place] Sodium [Moles/Vol] 138 mmol/L Normal 136-[address] [facility] Comment on above: Order Comment: Speci men Type: BLOOD SPECIMEN Ordering Facility: External Submitter Address: , , Performed By: #### 2 4325-3, 90445-5 #### [facility] CLIA [id number] [address] [place] [address] [place] Urea nitrogen [Mass/Vol] 13 mg/dL Normal 9-24 [facility] Comment on above: Order Comment: Speci men Type: BLOOD SPECIMEN Ordering Facility: External Submitter Address: , , Performed By: #### 2 4325-3, 30728-4 #### [facility] CLIA [id number] [address] [place] [address] [place] CBC W Auto Differential pane l (Bld)on 07-23-2023 Basophils (Bld) [#/Vol] 0.06 10*3/uL Normal <0.11 [facility] Comment on above: Order Comment: Speci men Type: BLOOD SPECIMEN Ordering Facility: External Submitter Address: , , Performed By: #### 5 7021-8 #### [facility] CLIA [id number] [address] [place] [address] [place] Basophils/100 WBC (Bld) 1.0 % Normal [facility] Comment on above: Order Comment: Speci men Type: BLOOD SPECIMEN Ordering Facility: External Submitter Address: , , Performed By: #### 5 7021-8 #### [facility] CLIA [id number] [address] [place] [address] [place] Differential cell count method Nom (Bld) Auto Normal [facility] Comment on above: Order Comment: Speci men Type: BLOOD SPECIMEN Ordering Facility: External Submitter Address: , , Performed By: #### 5 7021-8 #### [facility] CLIA [id number] [address] [place] [address] [place] Eosinophils (Bld) [#/Vol] 0.22 10*3/uL Normal <0.46 [facility] Comment on above: Order Comment: Speci men Type: BLOOD SPECIMEN Ordering Facility: External Submitter Address: , , Performed By: #### 5 7021-8 #### [facility] CLIA [id number] [address] [place] [address] [place] Eosinophils/100 WBC (Bld) 3.7 % Normal [facility] Comment on above: Order Comment: Speci men Type: BLOOD SPECIMEN Ordering Facility: External Submitter Address: , , Performed By: #### 5 7021-8 #### [facility] CLIA [id number] [address] [place] [address] [place] Erythrocyte distribution width (RBC) [Ratio] 15.3 % High 11.5-15.0 [facility] Comment on above: Order Comment: Speci men Type: BLOOD SPECIMEN Ordering Facility: External Submitter Address: , , Performed By: #### 5 7021-8 #### [facility] CLIA [id number] [address] [place] [address] [place] Hematocrit (Bld) [Volume fraction] 33.7 % Low 39.0-51.0 [facility] Comment on above: Order Comment: Speci men Type: BLOOD SPECIMEN Ordering Facility: External Submitter Address: , , Performed By: #### 5 7021-8 #### [facility] CLIA [id number] [address] [place] [address] [place] Hemoglobin (Bld) [Mass/Vol] 10.3 g/dL Low 13.0-17.0 [facility] Comment on above: Order Comment: Speci men Type: BLOOD SPECIMEN Ordering Facility: External Submitter Address: , , Performed By: #### 5 7021-8 #### [facility] CLIA [id number] [address] [place] [address] [place] Immature granulocytes (Bld) [#/Vol] 10*3/uL Normal <0.10 [facility] Comment on above: Order Comment: Speci men Type: BLOOD SPECIMEN Ordering Facility: External Submitter Address: , , Performed By: #### 5 7021-8 #### [facility] CLIA [id number] [address] [place] [address] [place] Immature granulocytes/100 WBC (Bld) 0.3 % Normal [facility] Comment on above: Order Comment: Speci men Type: BLOOD SPECIMEN Ordering Facility: External Submitter Address: , , Performed By: #### 5 7021-8 #### [facility] CLIA [id number] [address] [place] [address] [place] Lymphocytes (Bld) [#/Vol] 0.62 10*3/uL Low 1.00-4.00 [facility] Comment on above: Order Comment: Speci men Type: BLOOD SPECIMEN Ordering Facility: External Submitter Address: , , Performed By: #### 5 7021-8 #### [facility] IA [id number] [address] [place] [address] STATES OF [facility] Lymphocytes/100 WBC (Bld) 10.5 % Normal [facility] Comment on above: Order Comment: Speci men Type: BLOOD SPECIMEN Ordering Facility: External Submitter Address: , , Performed By: #### 5 7021-8 #### [facility] IA [id number] [address] [place] [address] [place] MCH (RBC) [Entitic mass] 27.8 pg Normal 26.0-34.0 [facility] Comment on above: Order Comment: Speci men Type: BLOOD SPECIMEN Ordering Facility: External Submitter Address: , , Performed By: #### 5 7021-8 #### [facility] CLIA [id number] [address] [place] [address] [place] MCHC (RBC) [Mass/Vol] 30.6 g/dL Normal 30.5-36.0 [facility] Comment on above: Order Comment: Speci men Type: BLOOD SPECIMEN Ordering Facility: External Submitter Address: , , Performed By: #### 5 7021-8 #### [facility] CLIA [id number] [address] [place] [address] [place] MCV (RBC) [Entitic vol] 91.1 fL Normal 80.0-100.0 [facility] Comment on above: Order Comment: Speci men Type: BLOOD SPECIMEN Ordering Facility: External Submitter Address: , , Performed By: #### 5 7021-8 #### [facility] CLIA [id number] [address] [place] [address] [place] Monocytes (Bld) [#/Vol] 1.09 10*3/uL High <0.87 [facility] Comment on above: Order Comment: Speci men Type: BLOOD SPECIMEN Ordering Facility: External Submitter Address: , , Performed By: #### 5 7021-8 #### [facility] CLIA [id number] [address] [place] [address] [place] Monocytes/100 WBC (Bld) 18.4 % Normal [facility] Comment on above: Order Comment: Speci men Type: BLOOD SPECIMEN Ordering Facility: External Submitter Address: , , Performed By: #### 5 7021-8 #### [facility] CLIA [id number] [address] [place] [address] [place] Neutrophils (Bld) [#/Vol] 3.92 10*3/uL Normal 1.45-7.50 [facility] Comment on above: Order Comment: Speci men Type: BLOOD SPECIMEN Ordering Facility: External Submitter Address: , , Performed By: #### 5 7021-8 #### [facility] CLIA [id number] [address] [place] [address] [place] Neutrophils/100 WBC (Bld) 66.1 % Normal [facility] Comment on above: Order Comment: Speci men Type: BLOOD SPECIMEN Ordering Facility: External Submitter Address: , , Performed By: #### 5 7021-8 #### [facility] CLIA [id number] [address] [place] [address] [place] Nucleated RBC (Bld) [#/Vol] 10*3/uL Normal <0.01 [facility] Comment on above: Order Comment: Speci men Type: BLOOD SPECIMEN Ordering Facility: External Submitter Address: , , Performed By: #### 5 7021-8 #### [facility] CLIA [id number] [facility] [place] [address] [place] Nucleated RBC/100 WBC (Bld) [Ratio] 0.0 /100 WBC Normal [facility] Comment on above: Order Comment: Speci men Type: BLOOD SPECIMEN Ordering Facility: External Submitter Address: , , Performed By: #### 5 7021-8 #### [facility] CLIA [id number] [address] [place] [address] [place] Platelet mean volume (Bld) [Entitic vol] 10.4 fL Normal 9.0-12.7 [facility] Comment on above: Order Comment: Speci men Type: BLOOD SPECIMEN Ordering Facility: External Submitter Address: , , Performed By: #### 5 7021-8 #### [facility] CLIA [id number] [address] [place] [address] [place] Platelets (Bld) [#/Vol] 276 10*3/uL Normal 150-400 [facility] Comment on above: Order Comment: Speci men Type: BLOOD SPECIMEN Ordering Facility: External Submitter Address: , , Performed By: #### 5 7021-8 #### [facility] CLIA [id number] [address] [place] [address] [place] RBC (Bld) [#/Vol] 3.70 10*6/uL Low 4.20-6.00 [facility] Comment on above: Order Comment: Speci men Type: BLOOD SPECIMEN Ordering Facility: External Submitter Address: , , Performed By: #### 5 7021-8 #### [facility] CLIA [id number] [address] [place] [address] [place] WBC (Bld) [#/Vol] 5.93 10*3/uL Normal 3.70-11.00 [facility] Comment on above: Order Comment: Speci men Type: BLOOD SPECIMEN Ordering Facility: External Submitter Address: , , Performed By: #### 5 7021-8 #### [facility] CLIA [id number] [address] [place] [address] [place] Hepatic function 2000 panelo n 07-23-2023 Albumin [Mass/Vol] 3.6 g/dL Low 3.9-4.[address] [facility] Comment on above: Order Comment: Speci men Type: BLOOD SPECIMEN Ordering Facility: External Submitter Address: , , Performed By: #### 2 4325-3, 50949-6 #### [facility] CLIA [id number] [address] [place] [address] [place] ALP [Catalytic activity/Vol] 136 U/L High 38-113 [facility] Comment on above: Order Comment: Speci men Type: BLOOD SPECIMEN Ordering Facility: External Submitter Address: , , Performed By: #### 2 4325-3, 40019-5 #### [facility] CLIA [id number] [address] [place] [address] [place] ALT [Catalytic activity/Vol] U/L Low 10-54 [facility] Comment on above: Order Comment: Speci men Type: BLOOD SPECIMEN Ordering Facility: External Submitter Address: , , Result Comment: Resu lt rechecked. Performed By: #### 2 4325-3, 77937-3 #### [facility] CLIA [id number] [address] [place] [address] [place] AST [Catalytic activity/Vol] 21 U/L Normal 14-40 [facility] Comment on above: Order Comment: Speci men Type: BLOOD SPECIMEN Ordering Facility: External Submitter Address: , , Performed By: #### 2 4325-3, #### [facility] CLIA [id number] [address] [place] [address] [place] Bilirubin [Mass/Vol] 0.3 mg/dL Normal 0.2-1.3 [facility] Comment on above: Order Comment: Speci men Type: BLOOD SPECIMEN Ordering Facility: External Submitter Address: , , Performed By: #### 2 4325-3, #### [facility] CLIA [id number] [address] [place] [address] [place] Bilirubin.conjugated [Mass/Vol] mg/dL Normal <0.2 [facility] Comment on above: Order Comment: Speci men Type: BLOOD SPECIMEN Ordering Facility: External Submitter Address: , , Performed By: #### 2 4325-3, #### [facility] CLIA [id number] [address] [place] [address] [place] Protein [Mass/Vol] 6.6 g/dL Normal 6.3-8.[address] [facility] Comment on above: Order Comment: Speci men Type: BLOOD SPECIMEN Ordering Facility: External Submitter Address: , , Performed By: #### 2 4325-3, #### [facility] CLIA [id number] [address] [place] [address] [place] Laboratory - Coagulationon 0 06-19-2023 INR Coag (Bld) [Relative time] 2.5 {INR} High 0.9 - 1.1 [facility] PT Coag (PPP) [Time] 27.0 s High [facility] No Panel InformationOrdered By: Jeff Reilly on 06-19-2023 [facility] Work Phone: No Panel Informationon 06-19 [facility] Interpretation and review of laboratory results Abnormal [facility] Laboratory - Chemistry and C hemistry - challengeon 06-18-2023 Anion gap [Moles/Vol] 13 mmol/L 7 - 17 mmol/L [facility] Chloride [Moles/Vol] 102 mmol/L 98 - 108 mmol/L [facility] CO2 [Moles/Vol] 28 mmol/L 21 - 31 mmol/L [facility] Creatinine [Mass/Vol] 1.03 mg/dL 0.70 - 1.30 mg/dL [facility] Magnesium [Mass/Vol] 2.0 mg/dL 1.6 - 2.6 mg/dL [facility] Potassium [Moles/Vol] 4.6 mmol/L 3.5 - 5.0 mmol/L [facility] Sodium [Moles/Vol] 138 mmol/L 135 - 145 mmol/L [facility] Urea nitrogen [Mass/Vol] 20 mg/dL 7 - 25 mg/dL [facility] Urea nitrogen/Creatinine [Mass ratio] 19 mg/mg [facility] Laboratory - CoagulationOrde red By: Akash Hastings on 06-18-2023 aPTT Coag (PPP) [Time] 123.4 s High [facility] Laboratory - Coagulationon 0 06-18-2023 INR Coag (Bld) [Relative time] 2.5 {INR} High 0.9 - 1.1 [facility] PT Coag (PPP) [Time] 26.5 s High [facility] No Panel Informationon 06-18 [facility] Interpretation and review of laboratory results Abnormal [facility] eGFR, CKD-EPI, Male 74 - PINF [facility] Comment on above: Reported eGFR is bas ed on the CKD-EPI 2020 equation using creatinine, age, and sex. Interpretation and review of laboratory results Normal [facility] No Panel InformationOrdered By: Akash Hastings on 06-18-2023 Interpretation and review of laboratory results Abnormal [facility] Laboratory - Chemistry and C hemistry - challengeon 06-17-2023 Creatinine [Mass/Vol] 1.04 mg/dL 0.70 - 1.30 mg/dL [facility] Laboratory - Coagulationon 0 06-17-2023 aPTT Coag (PPP) [Time] 74.5 s High [facility] aPTT Coag (PPP) [Time] 101.7 s High [facility] aPTT Coag (PPP) [Time] 91.6 s High [facility] INR Coag (Bld) [Relative time] 1.7 {INR} High 0.9 - 1.1 [facility] PT Coag (PPP) [Time] 20.0 s High [facility] Laboratory - Hematology and Cell countson 06-17-2023 Platelet mean volume (Bld) [Entitic vol] 10.2 fL 8.7 - 12.3 fL [facility] Platelets (Bld) [#/Vol] 270 10*3/uL 146 - 337 K/uL [facility] No Panel Informationon 06-17 Interpretation and review of laboratory results Abnormal [facility] Interpretation and review of laboratory results Abnormal [facility] Interpretation and review of laboratory results Normal [facility] Interpretation and review of laboratory results Abnormal [facility] Interpretation and review of laboratory results Abnormal [facility] eGFR, CKD-EPI, Male 73 - PINF [facility] Comment on above: Reported eGFR is bas ed on the CKD-EPI 2020 equation using creatinine, age, and sex. Interpretation and review of laboratory results Normal [facility] Bacteria identified Cx Nom ( Bld)on 06-16-2023 Bacteria identified Cx Nom (Unsp spec) NO GROWTH DAY 5 OF 5 [facility] Results may be compromised due to volume of BACT\ALERT bottle below 8mLs. The optimal blood volume is 8-10 mls per aerobic/anaerobic blood culture bottle [facility] Bacteria identified Cx Nom (Unsp spec) NO GROWTH DAY 5 OF 5 [facility] Laboratory - Coagulationon 0 06-16-2023 aPTT Coag (PPP) [Time] 71.1 s High [facility] aPTT Coag (PPP) [Time] 116.6 s High [facility] INR Coag (Bld) [Relative time] 1.4 {INR} High 0.9 - 1.1 [facility] PT Coag (PPP) [Time] 17.2 s High [facility] Laboratory - CoagulationOrde red By: Leroy Daniels on 06-16-2023 aPTT Coag (PPP) [Time] 72.3 s High [facility] Comment on above: Results inconsistent with previous results Laboratory - CoagulationOrde red By: Nato José on 06-16-2023 aPTT Coag (PPP) [Time] 91.4 s High OS [facility] No Panel Informationon 06-16 Interpretation and review of laboratory results Abnormal [facility] Interpretation and review of laboratory results Abnormal [facility] Interpretation and review of laboratory results Abnormal [facility] No Panel InformationOrdered By: Leroy Daniels on 06-16-2023 Interpretation and review of laboratory results Abnormal [facility] No Panel InformationOrdered By: Nato José on 06-16-2023 Interpretation and review of laboratory results Abnormal [facility] Laboratory - Chemistry and C hemistry - challengeon 06-15-2023 Anion gap [Moles/Vol] 12 mmol/L 7 - 17 mmol/L [facility] Chloride [Moles/Vol] 103 mmol/L 98 - 108 mmol/L [facility] CO2 [Moles/Vol] 28 mmol/L 21 - 31 mmol/L [facility] Creatinine [Mass/Vol] 1.03 mg/dL 0.70 - 1.30 mg/dL [facility] Glucose [Mass/Vol] 93 mg/dL 70 - 99 mg/dL [facility] Magnesium [Mass/Vol] 1.9 mg/dL 1.6 - 2.6 mg/dL [facility] Osmolality Calc [Osmolality] 294 [facility] Potassium [Moles/Vol] 4.4 mmol/L 3.5 - 5.0 mmol/L [facility] Sodium [Moles/Vol] 139 mmol/L 135 - 145 mmol/L [facility] Urea nitrogen [Mass/Vol] 20 mg/dL 7 - 25 mg/dL [facility] Urea nitrogen/Creatinine [Mass ratio] 19 mg/mg [facility] Laboratory - Coagulationon 0 06-15-2023 aPTT Coag (PPP) [Time] 67.8 s High [facility] aPTT Coag (PPP) [Time] 82.6 s High [facility] INR Coag (Bld) [Relative time] 1.2 {INR} High 0.9 - 1.1 [facility] PT Coag (PPP) [Time] 15.5 s High [facility] Laboratory - Hematology and Cell countson 06-15-2023 Platelet mean volume (Bld) [Entitic vol] 10.4 fL 8.7 - 12.3 fL [facility] Platelets (Bld) [#/Vol] 269 10*3/uL 146 - 337 K/uL [facility] No Panel Informationon 06-15 Interpretation and review of laboratory results Abnormal [facility] Interpretation and review of laboratory results Normal [facility] Interpretation and review of laboratory results Abnormal [facility] Interpretation and review of laboratory results Abnormal [facility] eGFR, CKD-EPI, Male 74 - PINF [facility] Comment on above: Reported eGFR is bas ed on the CKD-EPI 2020 equation using creatinine, age, and sex. Interpretation and review of laboratory results Normal [facility] Laboratory - Chemistry and C hemistry - challengeon 06-14-2023 Anion gap [Moles/Vol] 12 mmol/L 7 - 17 mmol/L [facility] Chloride [Moles/Vol] 104 mmol/L 98 - 108 mmol/L [facility] CO2 [Moles/Vol] 26 mmol/L 21 - 31 mmol/L [facility] Creatinine [Mass/Vol] 1.11 mg/dL 0.70 - 1.30 mg/dL [facility] Glucose [Mass/Vol] 132 mg/dL High 70 - 99 mg/dL [facility] Magnesium [Mass/Vol] 1.9 mg/dL 1.6 - 2.6 mg/dL [facility] Osmolality Calc [Osmolality] 295 [facility] Potassium [Moles/Vol] 4.2 mmol/L 3.5 - 5.0 mmol/L [facility] Sodium [Moles/Vol] 138 mmol/L 135 - 145 mmol/L [facility] Urea nitrogen [Mass/Vol] 22 mg/dL 7 - 25 mg/dL [facility] Urea nitrogen/Creatinine [Mass ratio] 20 mg/mg [facility] Laboratory - Coagulationon 0 06-14-2023 aPTT Coag (PPP) [Time] 81.6 s High [facility] aPTT Coag (PPP) [Time] 85.3 s High [facility] INR Coag (Bld) [Relative time] 1.3 {INR} High 0.9 - 1.1 [facility] PT Coag (PPP) [Time] 16.3 s High [facility] No Panel Informationon 06-14 [facility] Interpretation and review of laboratory results Abnormal [facility] Interpretation and review of laboratory results Abnormal [facility] Interpretation and review of laboratory results Abnormal [facility] eGFR, CKD-EPI, Male 68 - PINF [facility] Comment on above: Reported eGFR is bas ed on the CKD-EPI 2020 equation using creatinine, age, and sex. Interpretation and review of laboratory results Abnormal [facility] Interpretation and review of laboratory results Normal [facility] Chest Viewson IMPRESSION: Appropriately positioned [...] I have reviewed and approved this report. [facility] Radiology Study observation (narrative) [facility] Bacteria identified Cx Nom ( Bld)on 06-13-2023 Bacteria identified Cx Nom (Unsp spec) [facility] ([facility]sp spec) [facility] Laboratory - Chemistry and C hemistry - challengeon 06-13-2023 Anion gap [Moles/Vol] 12 mmol/L 7 - 17 mmol/L [facility] Chloride [Moles/Vol] 104 mmol/L 98 - 108 mmol/L [facility] CO2 [Moles/Vol] 26 mmol/L 21 - 31 mmol/L [facility] Creatinine [Mass/Vol] 1.06 mg/dL 0.70 - 1.30 mg/dL [facility] Glucose [Mass/Vol] 95 mg/dL 70 - 99 mg/dL [facility] Magnesium [Mass/Vol] 2.0 mg/dL 1.6 - 2.6 mg/dL [facility] Osmolality Calc [Osmolality] 292 [facility] Potassium [Moles/Vol] 4.2 mmol/L 3.5 - 5.0 mmol/L [facility] Sodium [Moles/Vol] 138 mmol/L 135 - 145 mmol/L [facility] Urea nitrogen [Mass/Vol] 21 mg/dL 7 - 25 mg/dL [facility] Urea nitrogen/Creatinine [Mass ratio] 20 mg/mg [facility] Laboratory - CoagulationOrde red By: William Das on 06-13-2023 aPTT Coag (PPP) [Time] 72.6 s High [facility] Laboratory - Coagulationon 0 06-13-2023 aPTT Coag (PPP) [Time] 53.4 s High [facility] aPTT Coag (PPP) [Time] 131.1 s High [facility] INR Coag (Bld) [Relative time] 1.4 {INR} High 0.9 - 1.1 [facility] PT Coag (PPP) [Time] 17.3 s High [facility] Laboratory - CoagulationOrde red By: Columba Salmon on 06-13-2023 aPTT Coag (PPP) [Time] 52.2 s High [facility] Laboratory - Drug toxicology Ordered By: Malika Zepeda on 06-13-2023 Gentamicin trough [Mass/Vol] 0.6 mg/L [facility] Laboratory - Hematology and Cell countson 06-13-2023 Platelet mean volume (Bld) [Entitic vol] 10.3 fL 8.7 - 12.3 fL [facility] Platelets (Bld) [#/Vol] 278 10*3/uL 146 - 337 K/uL [facility] No Panel Informationon 06-13 [facility] Interpretation and review of laboratory results Abnormal [facility] Interpretation and review of laboratory results Normal [facility] Interpretation and review of laboratory results Abnormal [facility] eGFR, CKD-EPI, Male 72 - PINF [facility] Comment on above: Reported eGFR is bas ed on the CKD-EPI 2020 equation using creatinine, age, and sex. Interpretation and review of laboratory results Normal [facility] Interpretation and review of laboratory results Abnormal [facility] No Panel InformationOrdered By: Willaim Das on 06-13-2023 Interpretation and review of laboratory results Abnormal [facility] No Panel InformationOrdered By: Malika Zepeda on 06-13-2023 Interpretation and review of laboratory results Normal [facility] No Panel InformationOrdered By: Columba Salmon on 06-13-2023 Interpretation and review of laboratory results Abnormal [facility] Laboratory - Chemistry and C hemistry - challengeon 06-12-2023 Albumin [Mass/Vol] 3.3 g/dL Low 3.5 - 5.0 g/dL [facility] Anion gap [Moles/Vol] 13 mmol/L 7 - 17 mmol/L [facility] Chloride [Moles/Vol] 101 mmol/L 98 - 108 mmol/L [facility] CO2 [Moles/Vol] 27 mmol/L 21 - 31 mmol/L [facility] Creatinine [Mass/Vol] 1.12 mg/dL 0.70 - 1.30 mg/dL [facility] Glucose [Mass/Vol] 96 mg/dL 70 - 99 mg/dL [facility] Magnesium [Mass/Vol] 2.0 mg/dL 1.6 - 2.6 mg/dL [facility] Osmolality Calc [Osmolality] 290 [facility] Potassium [Moles/Vol] 4.4 mmol/L 3.5 - 5.0 mmol/L [facility] Sodium [Moles/Vol] 137 mmol/L 135 - 145 mmol/L [facility] Urea nitrogen [Mass/Vol] 20 mg/dL 7 - 25 mg/dL [facility] Urea nitrogen/Creatinine [Mass ratio] 18 mg/mg [facility] Laboratory - Coagulationon 0 06-12-2023 aPTT Coag (PPP) [Time] 59.8 s High [facility] INR Coag (Bld) [Relative time] 1.5 {INR} High 0.9 - 1.1 [facility] PT Coag (PPP) [Time] 17.7 s High [facility] Laboratory - CoagulationOrde red By: Jeff Dwyer on 06-12-2023 aPTT Coag (PPP) [Time] 63.5 s High [facility] Laboratory - CoagulationOrde red By: Silvestre Park on 06-12-2023 aPTT Coag (PPP) [Time] 121.0 s High [facility] Laboratory - Drug toxicology Ordered By: Biju Ivey on 06-12-2023 Gentamicin peak [Mass/Vol] 2.8 [facility] No Panel InformationOrdered By: Biju Ivey on 06-12-2023 Interpretation and review of laboratory results Normal [facility] No Panel Informationon 06-12 Interpretation and review of laboratory results Abnormal [facility] Interpretation and review of laboratory results Abnormal [facility] eGFR, CKD-EPI, Male 67 - PINF [facility] Comment on above: Reported eGFR is bas ed on the CKD-EPI 2020 equation using creatinine, age, and sex. Interpretation and review of laboratory results Normal [facility] Interpretation and review of laboratory results Abnormal [facility] No Panel InformationOrdered By: Jeff Dwyer on 06-12-2023 Interpretation and review of laboratory results Abnormal [facility] No Panel InformationOrdered By: Sivlestre Park on 06-12-2023 Interpretation and review of laboratory results Abnormal [facility] Laboratory - Chemistry and C hemistry - challengeon 06-11-2023 Anion gap [Moles/Vol] 14 mmol/L 7 - 17 mmol/L [facility] Chloride [Moles/Vol] 100 mmol/L 98 - 108 mmol/L [facility] CO2 [Moles/Vol] 27 mmol/L 21 - 31 mmol/L [facility] Creatinine [Mass/Vol] 1.10 mg/dL 0.70 - 1.30 mg/dL [facility] Glucose [Mass/Vol] 81 mg/dL 70 - 99 mg/dL [facility] Osmolality Calc [Osmolality] 290 [facility] Potassium [Moles/Vol] 4.4 mmol/L 3.5 - 5.0 mmol/L [facility] Sodium [Moles/Vol] 137 mmol/L 135 - 145 mmol/L [facility] Urea nitrogen [Mass/Vol] 21 mg/dL 7 - 25 mg/dL [facility] Urea nitrogen/Creatinine [Mass ratio] 19 mg/mg [facility] Magnesium [Mass/Vol] 2.0 mg/dL 1.6 - 2.6 mg/dL [facility] Potassium [Moles/Vol] 4.2 mmol/L 3.5 - 5.0 mmol/L [facility] Laboratory - CoagulationOrde red By: Oralia Pinto on 06-11-2023 aPTT Coag (PPP) [Time] 80.2 s High [facility] Laboratory - Coagulationon 0 06-11-2023 aPTT Coag (PPP) [Time] 39.7 s High [facility] INR Coag (Bld) [Relative time] 1.5 {INR} High 0.9 - 1.1 [facility] PT Coag (PPP) [Time] 18.3 s High [facility] Laboratory - CoagulationOrde red By: Xu Martin on 06-11-2023 aPTT Coag (PPP) [Time] 60.8 s High [facility] Laboratory - CoagulationOrde red By: Louis Wilks on 06-11-2023 aPTT Coag (PPP) [Time] 140.1 s High [facility] Laboratory - Hematology and Cell countson 06-11-2023 Platelet mean volume (Bld) [Entitic vol] 10.6 fL 8.7 - 12.3 fL [facility] Platelets (Bld) [#/Vol] 260 10*3/uL 146 - 337 K/uL [facility] No Panel InformationOrdered By: Oralia Pinto on 06-11-2023 Interpretation and review of laboratory results Abnormal [facility] No Panel Informationon 06-11 [facility] Interpretation and review of laboratory results Abnormal [facility] Interpretation and review of laboratory results Normal [facility] eGFR, CKD-EPI, Male 69 - PINF [facility] Comment on above: Reported eGFR is bas ed on the CKD-EPI 2020 equation using creatinine, age, and sex. [facility] Interpretation and review of laboratory results Abnormal [facility] Interpretation and review of laboratory results Normal [facility] No Panel InformationOrdered By: Xu Martin on 06-11-2023 Interpretation and review of laboratory results Abnormal [facility] No Panel InformationOrdered By: Louis Wilks on 06-11-2023 Interpretation and review of laboratory results Abnormal [facility] Bacteria identified Cx Nom ( Bld)on 06-10-2023 Bacteria identified Cx Nom (Unsp spec) Growth [facility] Bacteria identified Cx Nom (Unsp spec) STAPHYLOCOCCUS AUREUS Abnormal [facility] Comment on above: Susceptibilities set up on 06/08/23 Do not use oral antibiotics for this type of bacteremia. If an oral antibiotic is requested, please consult the ASP team (pager [phone]) for guidance. Interpretation and review of laboratory results Abnormal [facility] Results may be compromised due to volume of BACT\ALERT bottle exceeding 10mLs . The optimal blood volume is 8-10 mls per aerobic/anaerobic blood culture bottle. [facility] Bacteria identified Cx Nom ( Bld)Ordered By: Tiny Mcallister on 06-10-2023 Bacteria identified Cx Nom (Unsp spec) Growth [facility] Bacteria identified Cx Nom (Unsp spec) STAPHYLOCOCCUS AUREUS Abnormal [facility] Comment on above: Refer to specimen 24 [id number] for susceptibilities. Interpretation and review of laboratory results Abnormal [facility] Results may be compromised due to volume of BACT\ALERT bottle exceeding 10mLs . The optimal blood volume is 8-10 mls per aerobic/anaerobic blood culture bottle. [facility] Laboratory - Chemistry and C hemistry - challengeon 06-10-2023 Anion gap [Moles/Vol] 12 mmol/L 7 - 17 mmol/L [facility] Chloride [Moles/Vol] 104 mmol/L 98 - 108 mmol/L [facility] CO2 [Moles/Vol] 26 mmol/L 21 - 31 mmol/L [facility] Creatinine [Mass/Vol] 0.91 mg/dL 0.70 - 1.30 mg/dL [facility] Glucose [Mass/Vol] 87 mg/dL 70 - 99 mg/dL [facility] Magnesium [Mass/Vol] 1.8 mg/dL 1.6 - 2.6 mg/dL [facility] Osmolality Calc [Osmolality] 291 [facility] Potassium [Moles/Vol] 3.9 mmol/L 3.5 - 5.0 mmol/L [facility] Sodium [Moles/Vol] 138 mmol/L 135 - 145 mmol/L [facility] Urea nitrogen [Mass/Vol] 21 mg/dL 7 - 25 mg/dL [facility] Urea nitrogen/Creatinine [Mass ratio] 23 mg/mg [facility] Laboratory - CoagulationOrde red By: Jennifer Flower on 06-10-2023 aPTT Coag (PPP) [Time] 102.8 s High [facility] Laboratory - Coagulationon 0 06-10-2023 aPTT Coag (PPP) [Time] 62.5 s High [facility] Laboratory - CoagulationOrde red By: Coral Juárez on 06-10-2023 aPTT Coag (PPP) [Time] 55.2 s High [facility] Laboratory - CoagulationOrde red By: Lubna Snow on 06-10-2023 aPTT Coag (PPP) [Time] 138.0 s High [facility] INR Coag (Bld) [Relative time] 1.4 {INR} High 0.9 - 1.1 [facility] PT Coag (PPP) [Time] 17.1 s High [facility] Laboratory - Drug toxicology Ordered By: Sonia Boateng on 06-10-2023 Gentamicin trough [Mass/Vol] 1.5 mg/L Critically high [facility] No Panel InformationOrdered By: Jennifer Flower on 06-10-2023 Interpretation and review of laboratory results Abnormal [facility] No Panel InformationOrdered By: Sonia Boateng on 06-10-2023 Interpretation and review of laboratory results Abnormal [facility] No Panel Informationon 06-10 Interpretation and review of laboratory results Abnormal [facility] eGFR, CKD-EPI, Male 86 - PINF [facility] Comment on above: Reported eGFR is bas ed on the CKD-EPI 2020 equation using creatinine, age, and sex. Interpretation and review of laboratory results Normal [facility] No Panel InformationOrdered By: Coral Juárez on 06-10-2023 Interpretation and review of laboratory results Abnormal [facility] No Panel InformationOrdered By: Lubna Snow on 06-10-2023 Interpretation and review of laboratory results Abnormal [facility] Laboratory - Chemistry and C hemistry - challengeon 06-09-2023 Anion gap [Moles/Vol] 11 mmol/L 7 - 17 mmol/L [facility] Chloride [Moles/Vol] 104 mmol/L 98 - 108 mmol/L [facility] CO2 [Moles/Vol] 26 mmol/L 21 - 31 mmol/L [facility] Creatinine [Mass/Vol] 0.93 mg/dL 0.70 - 1.30 mg/dL [facility] Glucose [Mass/Vol] 100 mg/dL High 70 - 99 mg/dL [facility] Magnesium [Mass/Vol] 1.9 mg/dL 1.6 - 2.6 mg/dL [facility] Osmolality Calc [Osmolality] 291 [facility] Potassium [Moles/Vol] 4.2 mmol/L 3.5 - 5.0 mmol/L [facility] Sodium [Moles/Vol] 137 mmol/L 135 - 145 mmol/L [facility] Urea nitrogen [Mass/Vol] 23 mg/dL 7 - 25 mg/dL [facility] Urea nitrogen/Creatinine [Mass ratio] 25 mg/mg [facility] Laboratory - Coagulationon 0 1-06-2024 aPTT Coag (PPP) [Time] 92.7 s High [facility] INR Coag (Bld) [Relative time] 1.4 {INR} High 0.9 - 1.1 [facility] PT Coag (PPP) [Time] 16.9 s High [facility] aPTT Coag (PPP) [Time] 101.7 s High [facility] aPTT Coag (PPP) [Time] 91.6 s High [facility] Laboratory - Hematology and Cell countson 06-09-2023 Platelet mean volume (Bld) [Entitic vol] 10.3 fL 8.7 - 12.3 fL [facility] Platelets (Bld) [#/Vol] 287 10*3/uL 146 - 337 K/uL [facility] No Panel Informationon 06-09 Interpretation and review of laboratory results Abnormal [facility] Interpretation and review of laboratory results Normal [facility] Interpretation and review of laboratory results Abnormal [facility] Interpretation and review of laboratory results Abnormal [facility] eGFR, CKD-EPI, Male 84 - PINF [facility] Comment on above: Reported eGFR is bas ed on the CKD-EPI 2020 equation using creatinine, age, and sex. Interpretation and review of laboratory results Normal [facility] Interpretation and review of laboratory results Abnormal [facility] No Panel InformationOrdered By: Unassigned Pacs on 06-09-2023 [facility] Work Phone: Laboratory - Chemistry and C hemistry - challengeon 06-08-2023 Anion gap [Moles/Vol] 13 mmol/L 7 - 17 mmol/L [facility] Chloride [Moles/Vol] 103 mmol/L 98 - 108 mmol/L [facility] CO2 [Moles/Vol] 25 mmol/L 21 - 31 mmol/L [facility] Creatinine [Mass/Vol] 0.92 mg/dL 0.70 - 1.30 mg/dL [facility] Glucose [Mass/Vol] 116 mg/dL High 70 - 99 mg/dL [facility] Osmolality Calc [Osmolality] 291 [facility] Potassium [Moles/Vol] 3.9 mmol/L 3.5 - 5.0 mmol/L [facility] Sodium [Moles/Vol] 137 mmol/L 135 - 145 mmol/L [facility] Urea nitrogen [Mass/Vol] 20 mg/dL 7 - 25 mg/dL [facility] Urea nitrogen/Creatinine [Mass ratio] 22 mg/mg [facility] Magnesium [Mass/Vol] 2.0 mg/dL 1.6 - 2.6 mg/dL [facility] Laboratory - Coagulationon 0 06-08-2023 aPTT Coag (PPP) [Time] 80.1 s High [facility] aPTT Coag (PPP) [Time] 69.8 s High [facility] Laboratory - CoagulationOrde red By: Kalina Mejia on 06-08-2023 aPTT Coag (PPP) [Time] 92.6 s High [facility] Laboratory - Drug toxicology Ordered By: Eder Ramirez on 06-08-2023 Gentamicin trough [Mass/Vol] 1.1 mg/L Critically high [facility] Laboratory - Hematology and Cell countson 06-08-2023 Erythrocyte distribution width (RBC) [Ratio] 18.7 % High 10.9 - 14.3 % [facility] Hematocrit (Bld) [Volume fraction] 32.6 % Low 39.6 - 48.8 % [facility] Hemoglobin (Bld) [Mass/Vol] 10.2 g/dL Low 13.4 - 16.8 g/dL [facility] MCH (RBC) [Entitic mass] 28.3 pg 26.1 - 33.3 pg [facility] MCHC (RBC) [Mass/Vol] 31.3 g/dL Low 31.9 - 36.5 g/dL [facility] MCV (RBC) [Entitic vol] 90.6 fL 79.0 - 94.5 fL [facility] Platelet mean volume (Bld) [Entitic vol] 10.9 fL 8.7 - 12.3 fL [facility] Platelets (Bld) [#/Vol] 226 10*3/uL 146 - 337 K/uL [facility] RBC (Bld) [#/Vol] 3.60 10*6/uL Low [facility] WBC (Bld) [#/Vol] 15.06 10*3/uL High 3.73 - 10 .10 K/uL [facility] No Panel Informationon 06-08 Interpretation and review of laboratory results Abnormal [facility] Interpretation and review of laboratory results Abnormal [facility] eGFR, CKD-EPI, Male 85 - PINF [facility] Comment on above: Reported eGFR is bas ed on the CKD-EPI 2020 equation using creatinine, age, and sex. Interpretation and review of laboratory results Abnormal [facility] Interpretation and review of laboratory results Normal [facility] Interpretation and review of laboratory results Abnormal [facility] No Panel InformationOrdered By: Eder Ramirez on 06-08-2023 Interpretation and review of laboratory results Abnormal [facility] No Panel InformationOrdered By: Kalina Mejia on 06-08-2023 Interpretation and review of laboratory results Abnormal [facility] Laboratory - CoagulationOrde red By: Jeff Hebert on 06-07-2023 aPTT Coag (PPP) [Time] 54.2 s High [facility] Laboratory - Coagulationon 0 06-07-2023 aPTT Coag (PPP) [Time] 39.9 s High [facility] aPTT Coag (PPP) [Time] 43.5 s High [facility] INR Coag (Bld) [Relative time] 2.1 {INR} High 0.9 - 1.1 [facility] PT Coag (PPP) [Time] 23.3 s High [facility] Laboratory - Hematology and Cell countson 06-07-2023 Erythrocyte distribution width (RBC) [Ratio] 19.1 % High 10.9 - 14.3 % [facility] Hematocrit (Bld) [Volume fraction] 33.5 % Low 39.6 - 48.8 % [facility] Hemoglobin (Bld) [Mass/Vol] 10.6 g/dL Low 13.4 - 16.8 g/dL [facility] MCH (RBC) [Entitic mass] 27.8 pg 26.1 - 33.3 pg [facility] MCHC (RBC) [Mass/Vol] 31.6 g/dL Low 31.9 - 36.5 g/dL [facility] MCV (RBC) [Entitic vol] 87.9 fL 79.0 - 94.5 fL [facility] Platelet mean volume (Bld) [Entitic vol] 10.3 fL 8.7 - 12.3 fL [facility] Platelets (Bld) [#/Vol] 222 10*3/uL 146 - 337 K/uL [facility] RBC (Bld) [#/Vol] 3.81 10*6/uL Low [facility] WBC (Bld) [#/Vol] 14.90 10*3/uL High 3.73 - 10 .10 K/uL [facility] Laboratory - Microbiology an d Antimicrobial susceptibilityOrdered By: Gm Scott on 06-07-2023 C. albicans DNA MICHELLE+non-probe Ql (Pos bld culture) Not detected Not Detected [facility] C. glabrata DNA MICHLELE+non-probe Ql (Pos bld culture) Not detected Not Detected [facility] C. krusei DNA MICHELLE+non-probe Ql (Pos bld culture) Not detected Not Detected [facility] C. parapsilosis DNA MICHELLE+non-probe Ql (Pos bld culture) Not detected Not Detected [facility] C. tropicalis DNA MICHELLE+non-probe Ql (Pos bld culture) Not detected Not Detected [facility] E. cloacae complex DNA MICHELEL+non-probe Ql (Pos bld culture) Not detected Not [facility]ed [facility] E. coli DNA MICHELLE+non-probe Ql (Pos bld culture) Not detected Not Detected [facility] H. influenzae DNA MICHELLE+non-probe Ql (Pos bld culture) Not detected Not Detected [facility] K. oxytoca DNA MICHELLE+non-probe Ql (Pos bld culture) Not detected Not Detected [facility] L. monocytogenes DNA MICHELLE+non-probe Ql (Pos bld culture) Not detected Not Detected [facility] N. meningitidis DNA MICHELLE+non-probe Ql (Pos bld culture) Not detected Not Detected [facility] P. aeruginosa DNA MICHELLE+non-probe Ql (Pos bld culture) Not detected Not Detected [facility] Proteus sp DNA MICHELLE+non-probe Ql (Pos bld culture) Not detected Not Detected [facility] S. agalactiae DNA MICHELLE+non-probe Ql (Pos bld culture) Not detected Not Detected [facility] S. aureus DNA MICHELLE+non-probe Ql (Pos bld culture) Detected Abnormal Not Detected [facility] S. marcescens DNA MICHELLE+non-probe Ql (Pos bld culture) Not detected Not Detected [facility] S. pneumoniae DNA MICHELLE+non-probe Ql (Pos bld culture) Not detected Not Detected [facility] S. pyogenes DNA MICHELLE+non-probe Ql (Pos bld culture) Not detected Not Detected [facility] Staphylococcus sp DNA MICHELLE+non-probe Ql (Pos bld culture) Detected Abnormal Not Detected [facility] Streptococcus sp DNA MICHELLE+non-probe Ql (Pos bld culture) Not detected Not Detected [facility] No Panel InformationOrdered By: Gm Scott on 06-07-2023 Acinetobacter calcoaceticus-baumanni i complex DNA Not detected Not Detected [facility] Bacteroides fragilis DNA Not detected Not Detected [facility] Shital auris DNA Not detected Not Detected [facility] Cryptococcus diaz/neoformans DNA Not detected Not Detected [facility] Enterobacterales DNA Not detected Not Detected [facility] Enterococcus faecalis DNA Not detected Not Detected [facility] Enterococcus faecium DNA Not detected Not Detected [facility] Interpretation and review of laboratory results Abnormal [facility] Klebsiella aerogenes DNA Not detected Not Detected [facility] Klebsiella pneumoniae group DNA Not detected Not Detected [facility] mecA/C and MREJ (MRSA) Not detected Not Detecte d [facility] Salmonella species DNA Not detected Not Detecte d [facility] Staphylococcus epidermidis DNA Not detected Not Detected [facility] Staphylococcus lugdunensis DNA Not detected Not Detected [facility] Stenotrophomonas maltophilia DNA Not detected Not Detected [facility] Results may be compromised due to volume [...] conjunction with other clinical and laboratory findings. [facility] No Panel InformationOrdered By: Jeff Hebert on 06-07-2023 Interpretation and review of laboratory results Abnormal [facility] No Panel Informationon 06-07 Interpretation and review of laboratory results Abnormal [facility] Interpretation and review of laboratory results Abnormal [facility] Interpretation and review of laboratory results Abnormal [facility] Portable XR Chest Viewson IMPRESSION: Right IJ [...] CVC in place, no complication. Pulmonary edema. [facility] Portable XR Chest ViewsOrder ed By: Louie Mahmood on 06-07-2023 [facility] Work Phone: Laboratory - Chemistry and C hemistry - challengeon 06-06-2023 Anion gap [Moles/Vol] 13 mmol/L 7 - 17 mmol/L [facility] Chloride [Moles/Vol] 103 mmol/L 98 - 108 mmol/L [facility] CO2 [Moles/Vol] 28 mmol/L 21 - 31 mmol/L [facility] Creatinine [Mass/Vol[facility] 0.95 mg/dL 0.70 - 1.30 mg/dL [facility] Glucose [Mass/Vol] 94 mg/dL 70 - 99 mg/dL [facility] Magnesium [Mass/Vol] 1.7 mg/dL 1.6 - 2.6 mg/dL [facility] Osmolality Calc [Osmolality] 293 [facility] Potassium [Moles/Vol] 3.5 mmol/L 3.5 - 5.0 mmol/L [facility] Sodium [Moles/Vol] 140 mmol/L 135 - 145 mmol/L [facility] Urea nitrogen [Mass/Vol] 16 mg/dL 7 - 25 mg/dL [facility] Urea nitrogen/Creatinine [Mass ratio] 17 mg/mg [facility] Laboratory - Coagulationon 0 06-06-2023 aPTT Coag (PPP) [Time] 41.9 s High [facility] INR Coag (Bld) [Relative time] 2.5 {INR} High 0.9 - 1.1 [facility] PT Coag (PPP) [Time] 26.7 s High [facility] Laboratory - Hematology and Cell countson 06-06-2023 Basophils (Bld) [#/Vol] 0.05 10*3/uL 0.00 - 0.09 K/uL [facility] Basophils/100 WBC (Bld) 0.3 % [facility] Differential cell count method Nom (Bld) Electronic Differential [facility] Eosinophils (Bld) [#/Vol] 0.07 10*3/uL 0.00 - 0.48 K/uL [facility] Eosinophils/100 WBC (Bld) 0.4 % [facility] Erythrocyte distribution width (RBC) [Ratio] 19.4 % High 10.9 - 14.3 % [facility] Hematocrit (Bld) [Volume fraction] 37.1 % Low 39.6 - 48.8 % [facility] Hemoglobin (Bld) [Mass/Vol] 11.5 g/dL Low 13.4 - 16.8 g/dL [facility] Immature granulocytes (Bld) [#/Vol] 0.33 10*3/uL High NINF - 0.07 K/uL [facility] Immature granulocytes/100 WBC (Bld) 2.0 % [facility] Lymphocytes (Bld) [#/Vol] 0.80 10*3/uL Low 0.83 - 3.57 K/uL [facility] Lymphocytes/100 WBC (Bld) 4.9 % [facility] MCH (RBC) [Entitic mass] 28.2 pg 26.1 - 33.3 pg [facility] MCHC (RBC) [Mass/Vol] 31.0 g/dL Low 31.9 - 36.5 g/dL [facility] MCV (RBC) [Entitic vol] 90.9 fL 79.0 - 94.5 fL [facility] Monocytes (Bld) [#/Vol] 1.50 10*3/uL High 0.24 - 0.93 K/uL [facility] Monocytes/100 WBC (Bld) 9.2 % [facility] Neutrophils (Bld) [#/Vol] 13.63 10*3/uL High 1.57 - 6.19 K/uL [facility] Nucleated RBC/100 WBC (Bld) [Ratio] 0.0 % [facility] Platelet mean volume (Bld) [Entitic vol] 10.3 fL 8.7 - 12.3 fL [facility] Platelets (Bld) [#/Vol] 250 10*3/uL 146 - 337 K/uL [facility] RBC (Bld) [#/Vol] 4.08 10*6/uL Low [facility] Segmented neutrophils/100 WBC (Bld) 83.2 % [facility] WBC (Bld) [#/Vol] 16.38 10*3/uL High 3.73 - 10 .10 K/uL [facility] No Panel Informationon 06-06 eGFR, CKD-EPI, Male 82 - PINF [facility] Comment on above: Reported eGFR is bas ed on the CKD-EPI 2020 equation using creatinine, age, and sex. Interpretation and review of laboratory results Normal [facility] Interpretation and review of laboratory results Abnormal [facility] Interpretation and review of laboratory results Abnormal [facility] Portable XR Chest Viewson Radiology Study observation (narrative) [facility] Progress Noteson 04-20-2021 [employer] Aut[employer] Interface Message Text I evaluated Markus Nava during this telemedicine visit. I reviewed the resident's documentation. I agree with the resident's decision making as documented in the resident's note. Normal [facility] [employer] Authentication Interface Message Text Normal [facility] Care Plan Noteon 04-05-2021 [employer] Authentication Interface Message Text Normal [facility] GLUCOSE, FINGERSTICK-IN OFFI CEon 04-05-2021 Glucose [Mass/Vol] 91 mg/dL Normal 80-116 [facility] Comment on above: Performed By: #### 8 2948 ####NURSING GLUCOSE [id number] [place], [address] PROTHROMBIN TIME AND INRon 1 06-05-2020 INR Coag (PPP) [Relative time] 3.52 {INR} High 0.90-1.10 [facility] Comment on above: Performed By: #### P T ####[facility] [id number] [place], PT Coag (PPP) [Time] 38.6 s High 9.7-12.9 [facility] Comment on above: Performed By: #### P T ####[facility] [id number] [place], Progress Noteson 04-05-2021 [employer] Interface Message Text Normal [facility] [employer] Authentication Interface Message Text Normal [facility] [employer] Authentication Interface Message Text Normal [facility] Telephone Encounteron 2020 [employer] Authentication Interface Message Text Normal [facility] Care Plan Noteon 04-04-2021 [employer] Authentication Interface Message Text Normal [facility] Consultson 04-04-2021 [employer] Authentication Interface Message Text Normal [facility] [employer] Authentication Interface Message Text Normal [facility] [employer] Authentication Interface Message Text Normal [facility] [employer] Authentication Interface Message Text Normal [facility] GLUCOSE, FINGERSTICK-IN OFFI CEon 04-04-2021 Glucose [Mass/Vol] 97 mg/dL Normal 80-116 [facility] Comment on above: Performed By: #### 8 2948 ####NURSING GLUCOSE [id number] [place], [address] Glucose [Mass/Vol] 100 mg/dL Normal 80-116 [facility] Comment on above: Performed By: #### 8 2948 ####NURSING GLUCOSE [id number] [place], [address] Glucose [Mass/Vol] 109 mg/dL Normal 80-116 [facility] Comment on above: Performed By: #### 8 2948 ####NURSING GLUCOSE [id number] [place], [address] Glucose [Mass/Vol] 97 mg/dL Normal 80-116 [facility] Comment on above: Performed By: #### 8 2948 ####NURSING GLUCOSE [id number] [place], [address] PROTHROMBIN TIME AND INRon 1 06-04-2020 INR Coag (PPP) [Relative time] 3.89 {INR} High 0.90-1.10 [facility] Comment on above: Performed By: #### P T ####[facility] [id number] [place], PT Coag (PPP) [Time] 42.6 s High 9.7-12.9 [facility] Comment on above: Performed By: #### P T ####[facility] PATH[facility]Y [id number] [place] [address], Progress Noteson 04-04-2021 [employer] Interface Message Text Normal [facility] Care Plan Noteon 04-03-2021 [employer] Aut[employer] Interface Message Text Normal [facility] GLUCOSE, FINGERSTICK-IN OFFI CEon 04-03-2021 Glucose [Mass/Vol] 104 mg/dL Normal 80-116 [facility] Comment on above: Performed By: #### 8 2948 ####NURSING GLUCOSE [id number] [place], [address] Glucose [Mass/Vol] 102 mg/dL Normal 80-116 [facility] Comment on above: Performed By: #### 8 2948 ####NURSING GLUCOSE [id number] [place], [address] Glucose [Mass/Vol] 97 mg/dL Normal 80-116 [facility] Comment on above: Performed By: #### 8 2948 ####NURSING GLUCOSE [id number] [place], [address] PROTHROMBIN TIME AND INRon 1 INR Coag (PPP) [Relative time] 3.18 {INR} High 0.90-1.10 [facility] Comment on above: Performed By: #### P T ####S PATHOLOGY [id number] [place], PT Coag (PPP) [Time] 34.9 s High 9.7-12.9 [facility] Comment on above: Performed By: #### P T ####S PATHOLOGY [id number] [place], Care Plan Noteon 04-02-2021 [employer] Interface Message Text Normal [facility] Consultson 04-02-2021 [employer] Authentication Interface Message Text Normal [facility] GLUCOSE, FINGERSTICK-IN OFFI CEon 04-02-2021 Glucose [Mass/Vol] 121 mg/dL High 80-116 [facility] Comment on above: Performed By: #### 8 2948 ####NURSING GLUCOSE [id number] [place] [address], [address] Glucose [Mass/Vol] 99 mg/dL Normal 80-116 [facility] Comment on above: Result Comment: No A ction Performed By: #### 8 2948 ####NURSING GLUCOSE [id number] [place], [address] Glucose [Mass/Vol] 104 mg/dL Normal 80-116 [facility] Comment on above: Performed By: #### 8 2948 ####NURSING GLUCOSE [id number] [place], [address] Glucose [Mass/Vol] 109 mg/dL Normal 80-116 [facility] Comment on above: Performed By: #### 8 2948 ####NURSING GLUCOSE [id number] [place], [address] PROTHROMBIN TIME AND INRon 1 INR Coag (PPP) [Relative time] 2.75 {INR} High 0.90-1.10 [facility] Comment on above: Performed By: #### P T ####S PATHOLOGY [id number] [place], PT Coag (PPP) [Time] 30.8 s High 9.7-12.9 [facility] Comment on above: Performed By: #### P T ####S PATHOLOGY [id number] [place], Progress Noteson 04-02-2021 [employer] Aut[employer] Interface Message Text Normal [facility] Care Plan Noteon 04-01-2021 [employer] Authentication Interface Message Text Normal [facility] GLUCOSE, FINGERSTICK-IN OFFI CEon 04-01-2021 Glucose [Mass/Vol] 117 mg/dL High 80-116 [facility] Comment on above: Result Comment: Foll ow Protocol Performed By: #### 8 2948 ####NURSING GLUCOSE [id number] [place], [address] Glucose [Mass/Vol] 116 mg/dL Normal 80-116 [facility] Comment on above: Performed By: #### 8 2948 ####NURSING GLUCOSE [id number] [place], [address] Glucose [Mass/Vol] 99 mg/dL Normal 80-116 [facility] Comment on above: Result Comment: Foll ow Protocol Performed By: #### 8 2948 ####NURSING GLUCOSE [id number] [place], [address] Glucose [Mass/Vol] 106 mg/dL Normal 80-116 [facility] Comment on above: Performed By: #### 8 2948 ####NURSING GLUCOSE [id number] [place], [address] PROTHROMBIN TIME AND INRon 1 INR Coag (PPP) [Relative time] 2.37 {INR} High 0.90-1.10 [facility] Comment on above: Performed By: #### P T ####S PATHOLOGY [id number] [place], PT Coag (PPP) [Time] 26.5 s High 9.7-12.9 [facility] Comment on above: Performed By: #### P T ####S PATHOLOGY [id number] [place] [address], Progress Noteson 04-01-2021 [employer] Aut[employer] Interface Message Text Normal [facility] [employer] Authentication Interface Message Text Normal [facility] Treatment Plan Noteon 2020 [employer] Authentication Interface Message Text Normal [facility] BASIC METABOLIC PANELon 10-2 8-2021 Anion gap [Moles/Vol] 12 mmol/L Normal 10-20 [facility] Comment on above: Performed By: #### C H8 ####S PATHOLOGY [id number] [place], Calcium [Mass/Vol] 8.4 mg/dL Normal 8.4-10.4 [facility] Comment on above: Performed By: #### C H8 ####S PATHOLOGY [id number] [place], Chloride [Moles/Vol] 101 mmol/L Normal 97-111 [facility] Comment on above: Performed By: #### C H8 ####S PATHOLOGY [id number] [place], CO2 [Moles/Vol] 25 mmol/L Normal 21-30 [facility] Comment on above: Performed By: #### C H8 ####S PATHOLOGY [id number] [place], Creatinine [Mass/Vol] 1.04 mg/dL Normal 0.80-1.30 [facility] Comment on above: Performed By: #### C H8 ####S PATHOLOGY [id number] [place], ESTIMATED GFR (CKD-EPI) 70 mL/min/1.73sqm Normal >=60 [facility] Comment on above: Performed By: #### C H8 ####S PATHOLOGY [id number] [place], Glucose [Mass/Vol] 88 mg/dL Normal 80-116 [facility] Comment on above: Performed By: #### C H8 ####S PATHOLOGY [id number] [place], Potassium [Moles/Vol] 4.8 mmol/L Normal 3.3-5.3 [facility] Comment on above: Performed By: #### C H8 ####S PATHOLOGY [id number] [place], Sodium [Moles/Vol] 133 mmol/L Low 135-148 [facility] Comment on above: Performed By: #### C H8 ####S PATHOLOGY [id number] [place], Urea nitrogen [Mass/Vol] 22 mg/dL Normal 8-22 [facility] Comment on above: Performed By: #### C H8 ####[facility] PATHOLOGY [id number] [place], CBC WITH DIFFERENTIALon 03-05 Basophils (Bld) [#/Vol] 0.06 10*3/uL Normal 0.00-0.20 [facility] Comment on above: Performed By: #### C BCDSAT ####[facility] PATHOLOGY [id number] [place], Basophils/100 WBC (Bld) 0.7 % Normal <=1.9 [facility] Comment on above: Performed By: #### C BCDSAT ####[facility] PATHOLOGY [id number] [place] [address], Eosinophils (Bld) [#/Vol] 0.41 10*3/uL Normal 0.00-0.70 [facility] Comment on above: Performed By: #### Deborah BCDSAT ####[facility] PATHOLOGY [id number] [place] [address], Eosinophils/100 WBC (Bld) 4.7 % High 0.1-4.0 [facility] Comment on above: Performed By: #### C BCDSAT ####[facility] PATHOLOGY [id number] [place], Erythrocyte distribution width (RBC) [Ratio] 15.7 % High 11.5-14.5 [facility] Comment on above: Performed By: #### C BCDSAT ####S PATHOLOGY [id number] [place], Hematocrit (Bld) [Volume fraction] 28.9 % Low 41.0-53.0 [facility] Comment on above: Performed By: #### C BCDSAT ####[facility] PATHOLOGY [id number] [place], Hemoglobin (Bld) [Mass/Vol] 9.6 g/dL Low 13.9-16.3 [facility] Comment on above: Performed By: #### Deborah GAMEZAT ####[facility] PATHOLOGY [id number] [place], Lymphocytes (Bld) [#/Vol] 1.14 10*3/uL Normal 1.00-4.80 [facility] Comment on above: Performed By: #### Deborah GAMEZAT ####[facility] PATHOLOGY [id number] [place] [address], Lymphocytes/100 WBC (Bld) 12.8 % Low 24.0-44.0 [facility] Comment on above: Performed By: #### Deborah GAMEZAT ####[facility] PATHOLOGY [id number] [place] [address], MCH (RBC) [Entitic mass] 31.5 pg Normal 26.0-34.0 [facility] Comment on above: Performed By: #### Deborah GAMEZAT ####[facility] PATHOLOGY [id number] [place] [address], MCHC (RBC) [Mass/Vol] 33.3 g/dL Normal 32.0-35.9 [facility] Comment on above: Performed By: #### Deborah GAMEZAT ####[facility] PATHOLOGY [id number] [place] [address], MCV (RBC) [Entitic vol] 95 fL Normal 80-100 [facility] Comment on above: Performed By: #### Deborah GAMEZAT ####[facility] PATHOLOGY [id number] [place] [address], MONOCYTE DISTRIBUTION WIDTH Normal [facility] Comment on above: Performed By: #### Deborah GAMEZAT ####[facility] PATHOLOGY [id number] [place], Monocytes (Bld) [#/Vol] 0.95 10*3/uL Normal 0.20-1.00 [facility] Comment on above: Performed By: #### Deborah GAMEZAT ####[facility] PATHOLOGY [id number] [place] [address], Monocytes/100 WBC (Bld) 10.7 % Normal 2.0-11.0 [facility] Comment on above: Performed By: #### Deborah GAMEZAT ####[facility] PATHOLOGY [id number] [place], Neutrophils (Bld) [#/Vol] 6.32 10*3/uL Normal 1.50-8.00 [facility] Comment on above: Performed By: #### Deborah GAMEZAT ####[facility] PATHOLOGY [id number] [place], Neutrophils/100 WBC (Bld) 71.2 % Normal 31.0-76.0 [facility] Comment on above: Performed By: #### Deborah GAMEZAT ####[facility] PATHOLOGY [id number] [place], Platelet mean volume (Bld) [Entitic vol] 9.5 fL Normal 7.5-11.2 [facility] Comment on above: Performed By: #### Deborah GAMEZAT ####[facility] PATHOLOGY [id number] [place], Platelets (Bld) [#/Vol] 346 10*3/uL Normal 150-400 [facility] Comment on above: Performed By: #### Deborah GAMEZAT ####[facility] PATHOLOGY [id number] [place], RBC (Bld) [#/Vol] 3.06 10*6/uL Low 4.50-5.90 [facility] Comment on above: Performed By: #### Deborah GAMEZAT ####[facility] PATHOLOGY [id number] [place], WBC (Bld) [#/Vol] 8.9 10*3/uL Normal 4.5-11.5 [facility] Comment on above: Performed By: #### Deborah GAMEZAT ####S PATHOLOGY [id number] [place], Care Plan Noteon 03-31-2021 [employer] Aut[employer] Interface Message Text Normal [facility] Consultson 03-31-2021 [employer] Authentication Interface Message Text Normal [facility] [employer] Authentication Interface Message Text Normal [facility] GLUCOSE, FINGERSTICK-IN OFFI CEon 03-31-2021 Glucose [Mass/Vol] 133 mg/dL High 80-116 [facility] Comment on above: Performed By: #### 8 2948 ####NURSING GLUCOSE [id number] [place], [address] Glucose [Mass/Vol] 102 mg/dL Normal 80-116 [facility] Comment on above: Performed By: #### 8 2948 ####NURSING GLUCOSE [id number] [place], [address] Glucose [Mass/Vol] 116 mg/dL Normal 80-116 [facility] Comment on above: Performed By: #### 8 2948 ####NURSING GLUCOSE [id number] [place], [address] Glucose [Mass/Vol] 122 mg/dL High 80-116 [facility] Comment on above: Performed By: #### 8 2948 ####NURSING GLUCOSE [id number] [place], [address] HEMOGLOBIN A1Con 03-31-2021 Glucose [Mass/Vol] 134 mg/dL Normal [facility] Comment on above: Order Comment: HbA1c of 5.7-6.4% have increased risk for diabetes and CV(Source :ADA 2014 Standard of Medical Care in Diabetes) Performed By: #### H B A1C ####[facility] [id number] [place] [address], HbA1c (Bld) [Mass fraction] 6.3 % High 4.0-5.6 [facility] Comment on above: Order Comment: HbA1c of 5.7-6.4% have increased risk for diabetes and CV(Source :ADA 2014 Standard of Medical Care in Diabetes) Performed By: #### H B A1C ####[facility] [id number] [place] [address], PROTHROMBIN TIME AND INRon 1 INR Coag (PPP) [Relative time] 2.01 {INR} High 0.90-1.10 [facility] Comment on above: Performed By: #### P T ####[facility] [id number] [place], PT Coag (PPP) [Time] 22.6 s High 9.7-12.9 [facility] Comment on above: Performed By: #### P T ####S PATHOLOGY [id number] [place], Progress Noteson 03-31-2021 [employer] Authentication Interface Message Text Normal [facility] [employer] Authentication Interface Message Text Normal [facility] [employer] Authentication Interface Message Text Normal [facility] [employer] Authentication Interface Message Text Normal [facility] VITAMIN D, 25-HYDROXYon -2 VITD25 24.2 ng/mL Low 30.0-100.0 [facility] Comment on above: Performed By: #### V ITD25 ####[facility] PATHOLOGY [id number] [place], Care Plan Noteon 03-30-2021 [employer] Authentication Interface Message Text Normal [facility] Consultson 03-30-2021 [employer] Authentication Interface Message Text Consult request received. Patient will be seen for rehab psych consult, ideally on 03/30/21. Shantal Sims, PhD Normal [facility] [employer] Authentication Interface Message Text Normal [facility] [employer] Authentication Interface Message Text Normal [facility] [employer] Authentication Interface Message Text Normal [facility] GLUCOSE, FINGERSTICK-IN OFFI CEon 03-30-2021 Glucose [Mass/Vol] 116 mg/dL Normal 80-116 [facility] Comment on above: Performed By: #### 8 2948 ####NURSING GLUCOSE [id number] [place], [address] Glucose [Mass/Vol] 129 mg/dL High 80-116 [facility] Comment on above: Performed By: #### 8 2948 ####NURSING GLUCOSE [id number] [place], [place], [address] Glucose [Mass/Vol] 108 mg/dL Normal 80-116 [facility] Comment on above: Result Comment: Foll ow Protocol Performed By: #### 8 2947 ####NURSING GLUCOSE [id number] [place], [address] Glucose [Mass/Vol] 112 mg/dL Normal 80-116 [facility] Comment on above: Result Comment: Salvador jovel RN, APN, MD Performed By: #### 8 2948 ####NURSING GLUCOSE [id number] [place], [address] Glucose [Mass/Vol] 116 mg/dL Normal 80-116 [facility] Comment on above: Performed By: #### 8 2948 ####NURSING GLUCOSE [id number] [place], [address] PROTHROMBIN TIME AND INRon 1 INR Coag (PPP) [Relative time] 2.05 {INR} High 0.90-1.10 [facility] Comment on above: Performed By: #### P T ####[facility] [id number] [place], PT Coag (PPP) [Time] 23.0 s High 9.7-12.9 [facility] Comment on above: Performed By: #### P T ####[facility] PATH[facility] [id number] [place], Progress Noteson 03-30-2021 [employer] Authentication Interface Message Text Normal [facility] [employer] Authentication Interface Message Text Normal [facility] [employer] Authentication Interface Message Text Normal [facility] Care Plan Noteon 03-29-2021 [employer] Authentication Interface Message Text Normal [facility] Consultson 03-29-2021 [employer] Authentication Interface Message Text Normal [facility] [employer] Authentication Interface Message Text Normal [facility] [employer] Authentication Interface Message Text Normal [facility] Discharge Planning Noteon [employer] Authentication Interface Message Text Normal [facility] [employer] Authentication Interface Message Text Normal [facility] FL MODIFIED BARIUM SWALLOWon 03-29-2021 [place] MODIFIED BARIUM SWALLOW Normal [facility] GLUCOSE, FINGERSTICK-IN OFFI CEon 03-29-2021 Glucose [Mass/Vol] 128 mg/dL High 80-116 [facility] Comment on above: Performed By: #### 8 2948 ####NURSING GLUCOSE [id number] [place], [address] Glucose [Mass/Vol] 97 mg/dL Normal 80-116 [facility] Comment on above: Performed By: #### 8 2948 ####NURSING GLUCOSE [id number] [place], [address] Glucose [Mass/Vol] 134 mg/dL High 80-116 [facility] Comment on above: Performed By: #### 8 2948 ####NURSING GLUCOSE [id number] [place], [address] Glucose [Mass/Vol] 135 mg/dL High 80-116 [facility] Comment on above: Performed By: #### 8 2948 ####NURSING GLUCOSE [id number] [place], [address] H AND Josue 03-29-2021 [employer] Authentication Interface Message Text Normal [facility] Progress Noteson 03-29-2021 [employer] Authentication Interface Message Text Normal [facility] [employer] Authentication Interface Message Text Normal [facility] [employer] Authentication Interface Message Text Normal [facility] [employer] Authentication Interface Message Text Normal [facility] [employer] Authentication Interface Message Text This RN and CCP unable to obtain AM labs on PT. PT extremely difficult stick and will not have anyone else try. This RN notified Dr. Jolly and will notify day shift to have IV team attempt. Normal [facility] BASIC METABOLIC PANELon 03-05 Anion gap [Moles/Vol] 13 mmol/L Normal 10-20 [facility] Comment on above: Performed By: #### C H8, MG ####[facility] PATH[facility] [id number] [place], Calcium [Mass/Vol] 8.2 mg/dL Low 8.4-10.4 [facility] Comment on above: Performed By: #### C H8, MG ####[facility] PATH[facility] [id number] [place], Chloride [Moles/Vol] 105 mmol/L Normal 97-111 [facility] Comment on above: Performed By: #### C H8, MG ####[facility] PATH[facility] [id number] [place], CO2 [Moles/Vol] 21 mmol/L Normal 21-30 [facility] Comment on above: Performed By: #### C H8, MG ####[facility] PATH[facility] OIZKURSRMQ1292 [place], Creatinine [Mass/Vol] 1.09 mg/dL Normal 0.80-1.30 [facility] Comment on above: Performed By: #### C H8, MG ####[facility] PATH[facility] [id number] [place], ESTIMATED GFR (CKD-EPI) 66 mL/min/1.73sqm Normal >=60 [facility] Comment on above: Performed By: #### C H8, MG ####[facility] PATH[facility] [id number] [place], Glucose [Mass/Vol] 120 mg/dL High 80-116 [facility] Comment on above: Performed By: #### C H8, MG ####[facility] [id number] [place], Potassium [Moles/Vol] 4.8 mmol/L Normal 3.3-5.3 [facility] Comment on above: Result Comment: Hemo lysis present Performed By: #### C H8, MG ####[facility] [id number] [place], Sodium [Moles/Vol] 134 mmol/L Low 135-148 [facility] Comment on above: Performed By: #### C H8, MG ####[facility] PATH[facility] [id number] [place], Urea nitrogen [Mass/Vol] 18 mg/dL Normal 8-22 [facility] Comment on above: Performed By: #### C H8, MG ####[facility] PATH[facility] [id number] [place], Care Plan Noteon 03-28-2021 [employer] Authentication Interface Message Text Normal [facility] Consultson 03-28-2021 [employer] Authentication Interface Message Text Normal [facility] [employer] Authentication Interface Message Text Normal [facility] [employer] Authentication Interface Message Text Normal [facility] GLUCOSE, FINGERSTICK-IN OFFI CEon 03-28-2021 Glucose [Mass/Vol] 100 mg/dL Normal 80-116 [facility] Comment on above: Performed By: #### 8 2948 ####NURSING GLUCOSE [id number] [place], [address] Glucose [Mass/Vol] 89 mg/dL Normal 80-116 [facility] Comment on above: Performed By: #### 8 2948 ####NURSING GLUCOSE HANIOGZ[address] [place] [address], [address] Glucose [Mass/Vol] 163 mg/dL High 80-116 [facility] Comment on above: Performed By: #### 8 2948 ####NURSING GLUCOSE [id number] [place] [address], [address] MAGNESIUMon 03-28-2021 Magnesium [Mass/Vol] 2.2 mg/dL Normal 1.6-2.8 [facility] Comment on above: Result Comment: Hemo lysis present Performed By: #### C H8, MG ####[facility] PATHOLOG[facility] [id number] [place] [address], PROTHROMBIN TIME AND INRon 1 INR Coag (PPP) [Relative time] 1.53 {INR} High 0.90-1.10 [facility] Comment on above: Performed By: #### P T ####[facility] PATHOLOG[facility] [id number] [place] [address], PT Coag (PPP) [Time] 17.2 s High 9.7-12.9 [facility] Comment on above: Performed By: #### P T ####[facility] PATHOLOGY [id number] [place] [address], Progress Noteson 03-28-2021 [employer] Authentication Interface Message Text Dr. Munoz notified unable to collect ordered CBC multiple staff attempts to obtain unsuccessful. PICC positional not providing adequate blood return aware. Will continue to monitor. Normal [facility] [employer] Authentication Interface Message Text Normal [facility] BASIC METABOLIC PANELon 10-2 Anion gap [Moles/Vol] 15 mmol/L Normal 10-20 [facility] Comment on above: Performed By: #### C H8, HEPATIC, MG ####[facility] PATH[facility] [id number] [place], Calcium [Mass/Vol] 8.3 mg/dL Low 8.4-10.4 [facility] Comment on above: Performed By: #### Deborah Jeronimo, HEPATIC, MG ####S PATHOLOGY [id number] [place], Chloride [Moles/Vol] 101 mmol/L Normal 97-111 [facility] Comment on above: Performed By: #### Deborah Jeronimo, HEPATIC, MG ####S PATHOLOGY [id number] [place], CO2 [Moles/Vol] 25 mmol/L Normal 21-30 [facility] Comment on above: Performed By: #### Deborah Jeronimo, HEPATIC, MG ####S PATHOLOGY [id number] [place], Creatinine [Mass/Vol] 1.20 mg/dL Normal 0.80-1.30 [facility] Comment on above: Performed By: #### Deborha Jeronimo, HEPATIC, MG ####[facility] PATHOLOGY [id number] [place], ESTIMATED GFR (CKD-EPI) 59 mL/min/1.73sqm Low >=60 [facility] Comment on above: Performed By: #### Deborah Jeronimo, HEPATIC, MG ####S PATHOLOGY [id number] [place], Glucose [Mass/Vol] 128 mg/dL High 80-116 [facility] Comment on above: Performed By: #### Deborah Jeronimo, HEPATIC, MG ####S PATHOLOGY [id number] [place], Potassium [Moles/Vol] 4.2 mmol/L Normal 3.3-5.3 [facility] Comment on above: Performed By: #### Deborah Jeronimo, HEPATIC, MG ####S PATHOLOGY [id number] [place], Sodium [Moles/Vol] 137 mmol/L Normal 135-148 [facility] Comment on above: Performed By: #### Deborah Jeronimo, HEPATIC, MG ####[facility] PATHOLOGY [id number] [place], Urea nitrogen [Mass/Vol] 23 mg/dL High 8-22 [facility] Comment on above: Performed By: #### Deborah Jeronimo, HEPATIC, MG ####[facility] PATHOLOGY [id number] [place], CBC WITH DIFFERENTIALon 03-05 Basophils (Bld) [#/Vol] 0.10 10*3/uL Normal 0.00-0.20 [facility] Comment on above: Performed By: #### C BCDSAT ####[facility] PATHOLOGY [id number] [place], Basophils/100 WBC (Bld) 1.1 % Normal <=1.9 [facility] Comment on above: Performed By: #### C BCDSAT ####[facility] PATHOLOGY [id number] [place], Eosinophils (Bld) [#/Vol] 0.28 10*3/uL Normal 0.00-0.70 [facility] Comment on above: Performed By: #### C BCDSAT ####[facility] PATHOLOGY [id number] [place], Eosinophils/100 WBC (Bld) 2.9 % Normal 0.1-4.0 [facility] Comment on above: Performed By: #### C BCDSAT ####[facility] PATHOLOGY [id number] [place], Erythrocyte distribution width (RBC) [Ratio] 14.2 % Normal 11.5-14.5 [facility] Comment on above: Performed By: #### C BCDSAT ####[facility] PATHOLOGY [id number] [place], Hematocrit (Bld) [Volume fraction] 25.6 % Low 41.0-53.0 [facility] Comment on above: Performed By: #### C BCDSAT ####[facility] PATHOLOGY [id number] [place], Hemoglobin (Bld) [Mass/Vol] 8.6 g/dL Low 13.9-16.3 [facility] Comment on above: Performed By: #### C HUMERADSAT ####[facility] PATHOLOGY [id number] [place], Lymphocytes (Bld) [#/Vol] 0.92 10*3/uL Low 1.00-4.80 [facility] Comment on above: Performed By: #### C VERAAT ####[facility] PATHOLOGY [id number] [place] [address], Lymphocytes/100 WBC (Bld) 9.2 % Low 24.0-44.0 [facility] Comment on above: Performed By: #### Deborah GAMEZAT ####[facility] PATHOLOGY [id number] [place], MCH (RBC) [Entitic mass] 31.1 pg Normal 26.0-34.0 [facility] Comment on above: Performed By: #### Deborah GAMEZAT ####[facility] PATHOLOGY [id number] [place] [address], MCHC (RBC) [Mass/Vol] 33.5 g/dL Normal 32.0-35.9 [facility] Comment on above: Performed By: #### Deborah GAMEZAT ####[facility] PATHOLOGY [id number] [place] [address], MCV (RBC) [Entitic vol] 93 fL Normal 80-100 [facility] Comment on above: Performed By: #### Deborah GAMEZAT ####[facility] PATHOLOGY [id number] [place] [address], MONOCYTE DISTRIBUTION WIDTH Normal [facility] Comment on above: Performed By: #### Deborah GAMEZAT ####[facility] PATHOLOGY [id number] [place], Monocytes (Bld) [#/Vol] 1.14 10*3/uL High 0.20-1.00 [facility] Comment on above: Performed By: #### Deborah GAMEZAT ####[facility] PATHOLOGY [id number] [place] [address], Monocytes/100 WBC (Bld) 11.4 % High 2.0-11.0 [facility] Comment on above: Performed By: #### C VERAAT ####[facility] PATHOLOGY [id number] [place], Neutrophils (Bld) [#/Vol] 7.50 10*3/uL Normal 1.50-8.00 [facility] Comment on above: Performed By: #### C VERAAT ####[facility] PATHOLOGY [id number] [place], Neutrophils/100 WBC (Bld) 75.4 % Normal 31.0-76.0 [facility] Comment on above: Performed By: #### C VERAAT ####[facility] PATHOLOGY [id number] [place], Platelet mean volume (Bld) [Entitic vol] 9.3 fL Normal 7.5-11.2 [facility] Comment on above: Performed By: #### Deborah GAMEZAT ####[facility] PATHOLOGY [id number] [place] [address], Platelets (Bld) [#/Vol] 292 10*3/uL Normal 150-400 [facility] Comment on above: Performed By: #### C VERAAT ####S PATHOLOGY [id number] [place], RBC (Bld) [#/Vol] 2.75 10*6/uL Low 4.50-5.90 [facility] Comment on above: Performed By: #### Deborah GAMEZAT ####[facility] PATHOLOGY [id number] [place], WBC (Bld) [#/Vol] 9.9 10*3/uL Normal 4.5-11.5 [facility] Comment on above: Performed By: #### C VERAAT ####[facility] PATHOLOGY [id number] [place], GLUCOSE, FINGERSTICK-IN OFFI CEon 03-27-2021 Glucose [Mass/Vol] 131 mg/dL High 80-116 [facility] Comment on above: Performed By: #### 8 2948 ####NURSING GLUCOSE [id number] [place], [address] Glucose [Mass/Vol] 138 mg/dL High 80-116 [facility] Comment on above: Performed By: #### 8 2948 ####NURSING GLUCOSE [id number] [place], [address] HEPATIC FUNCTION PANELon Albumin [Mass/Vol] 2.7 g/dL Low 3.4-5.1 [facility] Comment on above: Performed By: #### Deborah Jeronimo, HEPATIC, MG ####[facility] PATH[facility] [id number] [place], ALK 102 IU/L Normal 40-200 [facility] Comment on above: Performed By: #### Deborah Jeronimo, HEPATIC, MG ####[facility] PATH[facility] [id number] [place], ALT [Catalytic activity/Vol] 51 U/L High 7-40 [facility] Comment on above: Performed By: #### Deborah Jeronimo, HEPATIC, MG ####[facility] PATHOLOGY [id number] [place], AST [Catalytic activity/Vol] 44 U/L High 7-40 [facility] Comment on above: Performed By: #### Deborah Jeronimo, HEPATIC, MG ####[facility] PATHOLOGY [id number] [place], Bilirubin [Mass/Vol] 1.2 mg/dL Normal 0.1-1.5 [facility] Comment on above: Performed By: #### Deborah Jeronimo, HEPATIC, MG ####[facility] PATHOLOGY [id number] [place], Bilirubin.direct [Mass/Vol] 0.40 mg/dL High 0.10-0.30 [facility] Comment on above: Performed By: #### Deborah Jeronimo, HEPATIC, MG ####[facility] PATH[facility] [id number] [place], Protein [Mass/Vol] 6.3 g/dL Normal 5.7-8.1 [facility] Comment on above: Performed By: #### Deborah Jeronimo, HEPATIC, MG ####S PATHOLOGY [id number] [place], MAGNESIUMon 03-27-2021 Magnesium [Mass/Vol] 2.4 mg/dL Normal 1.6-2.8 [facility] Comment on above: Performed By: #### C H8, HEPATIC, MG ####[facility] PATHOLOGY [id number] [place], PROTHROMBIN TIME AND INRon 1 INR Coag (PPP) [Relative time] 1.47 {INR} High 0.90-1.10 [facility] Comment on above: Performed By: #### P T ####[facility] PATHOLOGY [id number] [place], PT Coag (PPP) [Time] 16.6 s High 9.7-12.9 [facility] Comment on above: Performed By: #### P T ####[facility] PATHOLOGY [id number] [place] [address], Progress Noteson 03-27-2021 [employer] Authentication Interface Message Text Normal [facility] CBC WITH DIFFERENTIALon 03-05 Basophils (Bld) [#/Vol] 0.09 10*3/uL Normal 0.00-0.20 [facility] Comment on above: Performed By: #### C BCDSAT ####[facility] PATHOLOGY [id number] [place], Basophils/100 WBC (Bld) 0.7 % Normal <=1.9 [facility] Comment on above: Performed By: #### C BCDSAT ####S PATHOLOGY [id number] [place], Eosinophils (Bld) [#/Vol] 0.25 10*3/uL Normal 0.00-0.70 [facility] Comment on above: Performed By: #### C BCDSAT ####S PATHOLOGY [id number] [place], Eosinophils/100 WBC (Bld) 1.9 % Normal 0.1-4.0 [facility] Comment on above: Performed By: #### C BCDSAT ####[facility] PATHOLOGY [id number] [place], Erythrocyte distribution width (RBC) [Ratio] 14.4 % Normal 11.5-14.5 [facility] Comment on above: Performed By: #### C BCDSAT ####[facility] PATHOLOGY [id number] [place], Hematocrit (Bld) [Volume fraction] 25.3 % Low 41.0-53.0 [facility] Comment on above: Performed By: #### C BCDSAT ####[facility] PATHOLOGY [id number] [place], Hemoglobin (Bld) [Mass/Vol] 8.4 g/dL Low 13.9-16.3 [facility] Comment on above: Performed By: #### C BCDSAT ####[facility] PATHOLOGY [id number] [place] [address], Lymphocytes (Bld) [#/Vol] 0.98 10*3/uL Low 1.00-4.80 [facility] Comment on above: Performed By: #### C BCDSAT ####[facility] PATHOLOGY [id number] [place] [address], Lymphocytes/100 WBC (Bld) 7.6 % Low 24.0-44.0 [facility] Comment on above: Performed By: #### C BCDSAT ####[facility] PATHOLOGY [id number] [place], MCH (RBC) [Entitic mass] 31.1 pg Normal 26.0-34.0 [facility] Comment on above: Performed By: #### C BCDSAT ####[facility] PATHOLOGY [id number] [place], MCHC (RBC) [Mass/Vol] 33.3 g/dL Normal 32.0-35.9 [facility] Comment on above: Performed By: #### C BCDSAT ####[facility] PATHOLOGY [id number] [place], MCV (RBC) [Entitic vol] 93 fL Normal 80-100 [facility] Comment on above: Performed By: #### C BCDSAT ####[facility] PATHOLOGY [id number] [place], MONOCYTE DISTRIBUTION WIDTH Normal [facility] Comment on above: Performed By: #### C BCDSAT ####[facility] PATHOLOGY [id number] [place], Monocytes (Bld) [#/Vol] 1.53 10*3/uL High 0.20-1.00 [facility] Comment on above: Performed By: #### C BCDSAT ####[facility] PATHOLOGY [id number] [place], Monocytes/100 WBC (Bld) 11.9 % High 2.0-11.0 [facility] Comment on above: Performed By: #### C BCDSAT ####[facility] PATHOLOGY [id number] [place], Neutrophils (Bld) [#/Vol] 10.02 10*3/uL High 1.50-8.00 [facility] Comment on above: Performed By: #### C BCDSAT ####[facility] PATHOLOGY [id number] [place], Neutrophils/100 WBC (Bld) 77.9 % High 31.0-76.0 [facility] Comment on above: Performed By: #### C BCDSAT ####[facility] PATHOLOGY [id number] [place], Platelet mean volume (Bld) [Entitic vol] 9.2 fL Normal 7.5-11.2 [facility] Comment on above: Performed By: #### C BCDSAT ####[facility] PATHOLOGY [id number] [place], Platelets (Bld) [#/Vol] 282 10*3/uL Normal 150-400 [facility] Comment on above: Performed By: #### C BCDSAT ####[facility] PATHOLOGY [id number] [place], RBC (Bld) [#/Vol] 2.71 10*6/uL Low 4.50-5.90 [facility] Comment on above: Performed By: #### C HUMERADSAT ####[facility] PATHOLOGY [id number] [place], WBC (Bld) [#/Vol] 12.9 10*3/uL High 4.5-11.5 [facility] Comment on above: Performed By: #### C HUMERADSAT ####[facility] PATHOLOGY [id number] [place], Basophils (Bld) [#/Vol] 0.08 10*3/uL Normal 0.00-0.20 [facility] Comment on above: Performed By: #### C VERAAT ####[facility] PATHOLOGY [id number] [place] [address], Basophils/100 WBC (Bld) 0.6 % Normal <=1.9 [facility] Comment on above: Performed By: #### C VERAAT ####[facility] PATHOLOGY [id number] [place], Eosinophils (Bld) [#/Vol] 0.24 10*3/uL Normal 0.00-0.70 [facility] Comment on above: Performed By: #### Deborah GAMEZAT ####[facility] PATHOLOGY [id number] [place] [address], Eosinophils/100 WBC (Bld) 2.0 % Normal 0.1-4.0 [facility] Comment on above: Performed By: #### C VERAAT ####[facility] PATHOLOGY [id number] [place], Erythrocyte distribution width (RBC) [Ratio] 14.4 % Normal 11.5-14.5 [facility] Comment on above: Performed By: #### C VERAAT ####S PATHOLOGY [id number] [place], Hematocrit (Bld) [Volume fraction] 27.1 % Low 41.0-53.0 [facility] Comment on above: Performed By: #### C BCDSAT ####[facility] PATHOLOGY [id number] [place], Hemoglobin (Bld) [Mass/Vol] 9.0 g/dL Low 13.9-16.3 [facility] Comment on above: Performed By: #### C BCDSAT ####[facility] PATHOLOGY [id number] [place], Lymphocytes (Bld) [#/Vol] 0.92 10*3/uL Low 1.00-4.80 [facility] Comment on above: Performed By: #### C BCDSAT ####[facility] PATHOLOGY [id number] [place], Lymphocytes/100 WBC (Bld) 7.6 % Low 24.0-44.0 [facility] Comment on above: Performed By: #### Deborah BCDSAT ####[facility] PATHOLOGY [id number] [place], MCH (RBC) [Entitic mass] 31.1 pg Normal 26.0-34.0 [facility] Comment on above: Performed By: #### Deborah BCDSAT ####[facility] PATHOLOGY [id number] [place] [address], MCHC (RBC) [Mass/Vol] 33.1 g/dL Normal 32.0-35.9 [facility] Comment on above: Performed By: #### Deborah BCDSAT ####[facility] PATHOLOGY [id number] [place], MCV (RBC) [Entitic vol] 94 fL Normal 80-100 [facility] Comment on above: Performed By: #### Deborah BCDSAT ####[facility] PATHOLOGY [id number] [place], MONOCYTE DISTRIBUTION WIDTH Normal [facility] Comment on above: Performed By: #### Deborah BCDSAT ####[facility] PATHOLOGY [id number] [place], Monocytes (Bld) [#/Vol] 1.16 10*3/uL High 0.20-1.00 [facility] Comment on above: Performed By: #### Deborah BCDSAT ####S PATHOLOGY [id number] [place], Monocytes/100 WBC (Bld) 9.6 % Normal 2.0-11.0 [facility] Comment on above: Performed By: #### C BCDSAT ####S PATHOLOGY [id number] [place], Neutrophils (Bld) [#/Vol] 9.73 10*3/uL High 1.50-8.00 [facility] Comment on above: Performed By: #### C BCDSAT ####[facility] PATHOLOGY [id number] [place], Neutrophils/100 WBC (Bld) 80.3 % High 31.0-76.0 [facility] Comment on above: Performed By: #### C BCDSAT ####[facility] PATHOLOGY [id number] [place], Platelet mean volume (Bld) [Entitic vol] 9.7 fL Normal 7.5-11.2 [facility] Comment on above: Performed By: #### C BCDSAT ####[facility] PATHOLOGY [id number] [place], Platelets (Bld) [#/Vol] 285 10*3/uL Normal 150-400 [facility] Comment on above: Performed By: #### C BCDSAT ####[facility] PATHOLOGY [id number] [place], RBC (Bld) [#/Vol] 2.89 10*6/uL Low 4.50-5.90 [facility] Comment on above: Performed By: #### C BCDSAT ####[facility] PATHOLOGY [id number] [place], WBC (Bld) [#/Vol] 12.1 10*3/uL High 4.5-11.5 [facility] Comment on above: Performed By: #### C BCDSAT ####S PATHOLOGY [id number] [place], Care Plan Noteon 03-26-2021 [employer] Authentication Interface Message Text Normal [facility] GLUCOSE, FINGERSTICK-IN OFFI CEon 03-26-2021 Glucose [Mass/Vol] 166 mg/dL High 80-116 [facility] Comment on above: Performed By: #### 8 2948 ####NURSING GLUCOSE [id number] [place], [address] Glucose [Mass/Vol] 118 mg/dL High 80-116 [facility] Comment on above: Performed By: #### 8 2948 ####NURSING GLUCOSE XZDURVA5726 [place], [address] Glucose [Mass/Vol] 138 mg/dL High 80-116 [facility] Comment on above: Performed By: #### 8 2948 ####NURSING GLUCOSE [id number] [place], [address] PROTHROMBIN TIME AND INRon 1 INR Coag (PPP) [Relative time] 1.48 {INR} High 0.90-1.10 [facility] Comment on above: Performed By: #### P T ####[facility] [id number] [place], PT Coag (PPP) [Time] 16.4 s High 9.7-12.9 [facility] Comment on above: Performed By: #### P T ####[facility] [id number] [place] [address], Progress Noteson 03-26-2021 [employer] Authentication Interface Message Text Normal [facility] BASIC METABOLIC PANELon 10-2 Anion gap [Moles/Vol] 15 mmol/L Normal 10-20 [facility] Comment on above: Performed By: #### C H8, MG, HEPATIC ####[facility] [id number] [place], Calcium [Mass/Vol] 8.3 mg/dL Low 8.4-10.4 [facility] Comment on above: Performed By: #### C H8, MG, HEPATIC ####[facility] [id number] [place], Chloride [Moles/Vol] 98 mmol/L Normal 97-111 [facility] Comment on above: Performed By: #### C H8, MG, HEPATIC ####[facility] [id number] [place], CO2 [Moles/Vol] 28 mmol/L Normal 21-30 [facility] Comment on above: Performed By: #### C H8, MG, HEPATIC ####[facility] [id number] [place], Creatinine [Mass/Vol] 1.23 mg/dL Normal 0.80-1.30 [facility] Comment on above: Performed By: #### C H8, MG, HEPATIC ####[facility] [id number] [place], ESTIMATED GFR (CKD-EPI) 57 mL/min/1.73sqm Low >=60 [facility] Comment on above: Performed By: #### C H8, MG, HEPATIC ####[facility] [id number] [place], Glucose [Mass/Vol] 137 mg/dL High 80-116 [facility] Comment on above: Performed By: #### C H8, MG, HEPATIC ####[facility] [id number] [place], Potassium [Moles/Vol] 4.0 mmol/L Normal 3.3-5.3 [facility] Comment on above: Performed By: #### C H8, MG, HEPATIC ####[facility] [id number] [place], Sodium [Moles/Vol] 137 mmol/L Normal 135-148 [facility] Comment on above: Performed By: #### C H8, MG, HEPATIC ####[facility] [id number] [place], Urea nitrogen [Mass/Vol] 32 mg/dL High 8-22 [facility] Comment on above: Performed By: #### C H8, MG, HEPATIC ####[facility] [id number] [place], CBC WITH DIFFERENTIALon 10-2 Basophils (Bld) [#/Vol] 0.05 10*3/uL Normal 0.00-0.20 [facility] Comment on above: Performed By: #### C HUMERADSAT ####[facility] PATHOLOGY [id number] [place] [address], Basophils/100 WBC (Bld) 0.3 % Normal <=1.9 [facility] Comment on above: Performed By: #### C HUMERADSAT ####[facility] PATHOLOGY [id number] [place] [address], Eosinophils (Bld) [#/Vol] 0.35 10*3/uL Normal 0.00-0.70 [facility] Comment on above: Performed By: #### Deborah GAMEZAT ####[facility] PATHOLOGY [id number] [place] [address], Eosinophils/100 WBC (Bld) 2.1 % Normal 0.1-4.0 [facility] Comment on above: Performed By: #### C VERAAT ####[facility] PATHOLOGY [id number] [place] [address], Erythrocyte distribution width (RBC) [Ratio] 14.3 % Normal 11.5-14.5 [facility] Comment on above: Performed By: #### Deborah GAMEZAT ####[facility] PATHOLOGY [id number] [place] [address], Hematocrit (Bld) [Volume fraction] 22.8 % Low 41.0-53.0 [facility] Comment on above: Performed By: #### C VERAAT ####[facility] PATHOLOGY [id number] [place] [address], Hemoglobin (Bld) [Mass/Vol] 7.6 g/dL Low 13.9-16.3 [facility] Comment on above: Performed By: #### C BCMARIAMAAT ####[facility] PATHOLOGY [id number] [place] [address], Lymphocytes (Bld) [#/Vol] 1.36 10*3/uL Normal 1.00-4.80 [facility] Comment on above: Performed By: #### C VERAAT ####[facility] PATHOLOGY [id number] [place], Lymphocytes/100 WBC (Bld) 8.2 % Low 24.0-44.0 [facility] Comment on above: Performed By: #### C BCDSAT ####[facility] PATHOLOGY [id number] [place], MCH (RBC) [Entitic mass] 30.5 pg Normal 26.0-34.0 [facility] Comment on above: Performed By: #### C BCDSAT ####[facility] PATHOLOGY [id number] [place], MCHC (RBC) [Mass/Vol] 33.2 g/dL Normal 32.0-35.9 [facility] Comment on above: Performed By: #### Deborah BCDSAT ####[facility] PATHOLOGY [id number] [place], MCV (RBC) [Entitic vol] 92 fL Normal 80-100 [facility] Comment on above: Performed By: #### C BCDSAT ####[facility] PATHOLOGY [id number] [place], MONOCYTE DISTRIBUTION WIDTH Normal [facility] Comment on above: Performed By: #### Deborah BCDSAT ####[facility] PATHOLOGY [id number] [place], Monocytes (Bld) [#/Vol] 1.80 10*3/uL High 0.20-1.00 [facility] Comment on above: Performed By: #### C BCDSAT ####[facility] PATHOLOGY [id number] [place] [address], Monocytes/100 WBC (Bld) 10.8 % Normal 2.0-11.0 [facility] Comment on above: Performed By: #### Deborah BCDSAT ####[facility] PATHOLOGY [id number] [place], Neutrophils (Bld) [#/Vol] 13.16 10*3/uL High 1.50-8.00 [facility] Comment on above: Performed By: #### C BCMARIAMAAT ####S PATHOLOGY [id number] [place], Neutrophils/100 WBC (Bld) 78.7 % High 31.0-76.0 [facility] Comment on above: Performed By: #### C BCDSAT ####[facility] PATHOLOGY [id number] [place], Platelet mean volume (Bld) [Entitic vol] 9.9 fL Normal 7.5-11.2 [facility] Comment on above: Performed By: #### C BCDSAT ####[facility] PATHOLOGY [id number] [place], Platelets (Bld) [#/Vol] 214 10*3/uL Normal 150-400 [facility] Comment on above: Performed By: #### C BCDSAT ####[facility] PATHOLOGY [id number] [place], RBC (Bld) [#/Vol] 2.49 10*6/uL Low 4.50-5.90 [facility] Comment on above: Performed By: #### C BCDSAT ####[facility] PATHOLOGY [id number] [place], WBC (Bld) [#/Vol] 16.7 10*3/uL High 4.5-11.5 [facility] Comment on above: Performed By: #### C BCDSAT ####[facility] PATHOLOGY [id number] [place], COMPLETE BLOOD COUNTon 03-25 Erythrocyte distribution width (RBC) [Ratio] 14.4 % Normal 11.5-14.5 [facility] Comment on above: Performed By: #### C BC ####[facility] PATHOLOGY [id number] [place], Hematocrit (Bld) [Volume fraction] 23.3 % Low 41.0-53.0 [facility] Comment on above: Performed By: #### C BC ####[facility] PATHOLOGY [id number] [place], Hemoglobin (Bld) [Mass/Vol] 7.8 g/dL Low 13.9-16.3 [facility] Comment on above: Performed By: #### C BC ####[facility] PATHOLOGY [id number] [place], MCH (RBC) [Entitic mass] 31.4 pg Normal 26.0-34.0 [facility] Comment on above: Performed By: #### C BC ####[facility] PATHOLOGY [id number] [place], MCHC (RBC) [Mass/Vol] 33.5 g/dL Normal 32.0-35.9 [facility] Comment on above: Performed By: #### C BC ####[facility] PATHOLOGY [id number] [place], MCV (RBC) [Entitic vol] 94 fL Normal 80-100 [facility] Comment on above: Performed By: #### C BC ####[facility] PATHOLOGY [id number] [place], Platelet mean volume (Bld) [Entitic vol] 9.9 fL Normal 7.5-11.2 [facility] Comment on above: Performed By: #### C BC ####[facility] PATHOLOGY [id number] [place], Platelets (Bld) [#/Vol] 210 10*3/uL Normal 150-400 [facility] Comment on above: Performed By: #### C BC ####[facility] PATHOLOGY [id number] [place], RBC (Bld) [#/Vol] 2.49 10*6/uL Low 4.50-5.90 [facility] Comment on above: Performed By: #### C BC ####[facility] PATHOLOGY [id number] [place], WBC (Bld) [#/Vol] 12.3 10*3/uL High 4.5-11.5 [facility] Comment on above: Performed By: #### C BC ####S PATHOLOGY [id number] [place], Care Plan Noteon 03-25-2021 [employer] Authentication Interface Message Text Normal [facility] [employer] Authentication Interface Message Text Normal [facility] Consultson 03-25-2021 [employer] Authentication Interface Message Text Normal [facility] [employer] Authentication Interface Message Text Normal [facility] GLUCOSE, FINGERSTICK-IN OFFI CEon 03-25-2021 Glucose [Mass/Vol] 121 mg/dL High 80-116 [facility] Comment on above: Performed By: #### 8 2948 ####NURSING GLUCOSE [id number] [place], [address] Glucose [Mass/Vol] 136 mg/dL High 80-116 [facility] Comment on above: Result Comment: Salvador jovel RN, APN, MD Performed By: #### 8 2948 ####NURSING GLUCOSE [id number] [place], [address] Glucose [Mass/Vol] 164 mg/dL High 80-116 [facility] Comment on above: Result Comment: Salvador jovel RN, APN, MD Performed By: #### 8 2948 ####NURSING GLUCOSE [id number] [place], [address] Glucose [Mass/Vol] 171 mg/dL High 80-116 [facility] Comment on above: Performed By: #### 8 4378 ####NURSING GLUCOSE [id number] [place], [address] HEPATIC FUNCTION PANELon Albumin [Mass/Vol] 2.6 g/dL Low 3.4-5.1 [facility] Comment on above: Performed By: #### C Phani, MG, HEPATIC ####[facility] [id number] [place], ALK 83 IU/L Normal 40-200 [facility] Comment on above: Performed By: #### Deborah Jeronimo, MG, HEPATIC ####[facility] [id number] [place], ALT [Catalytic activity/Vol] 53 U/L High 7-40 [facility] Comment on above: Performed By: #### Deborah Jeronimo, MG, HEPATIC ####[facility] [id number] [place], AST [Catalytic activity/Vol] 60 U/L High 7-40 [facility] Comment on above: Performed By: #### Deborah Jeronimo MG, HEPATIC ####S PATHOLOGY [id number] [place], Bilirubin [Mass/Vol] 1.2 mg/dL Normal 0.1-1.5 [facility] Comment on above: Performed By: #### Deborah Jeronimo, MG, HEPATIC ####S PATHOLOGY [id number] [place], Bilirubin.direct [Mass/Vol] 0.30 mg/dL Normal 0.10-0.30 [facility] Comment on above: Performed By: #### Deborah Jeronimo MG, HEPATIC ####S PATHOLOGY [id number] [place], Protein [Mass/Vol] 5.7 g/dL Normal 5.7-8.1 [facility] Comment on above: Performed By: #### Deborah Jeronimo MG, HEPATIC ####[facility] PATHOLOGY [id number] [place], MAGNESIUMon 03-25-2021 Magnesium [Mass/Vol] 2.1 mg/dL Normal 1.6-2.8 [facility] Comment on above: Performed By: #### Deborah Jeronimo MG, HEPATIC ####S PATHOLOGY [id number] [place], Progress Noteson 03-25-2021 [employer] Authentication Interface Message Text Message sent to Dr Hernandes: could we possibly get cortisone cream ordered for pt's back. He is itchy, reddened skin, and some tearing to his moles on his back from the pt scratching. Will monitor for order, or contraindication. Normal [facility] [employer] Authentication Interface Message Text Both lumens of PICC are sluggish to flush and do not give blood return. TPN paused. Dr. Umana notified and order for Cath-Ermias received. Normal [facility] [employer] Authentication Interface Message Text Normal The [employer] Authentication Interface Message Text LONG-TERM PLAN NOTE S: O: AP: Rest of care per sports marketing internship note Kacie Rogers MD PGY-2 [phone] Normal [facility] BASIC METABOLIC PANELon 10-2 Anion gap [Moles/Vol] 17 mmol/L Normal 10-20 [facility] Comment on above: Performed By: #### H EPATIC, PHOS, CH8, TRIG, MG ####S PATHOLOGY [id number] [place], Calcium [Mass/Vol] 8.5 mg/dL Normal 8.4-10.4 [facility] Comment on above: Performed By: #### H EPATIC, PHOS, CH8, TRIG, MG ####S PATHOLOGY [id number] [place], Chloride [Moles/Vol] 101 mmol/L Normal 97-111 [facility] Comment on above: Performed By: #### H EPATIC, PHOS, CH8, TRIG, MG ####[facility] PATHOLOGY [id number] [place], CO2 [Moles/Vol] 26 mmol/L Normal 21-30 [facility] Comment on above: Performed By: #### H EPATIC, PHOS, CH8, TRIG, MG ####S PATHOLOGY [id number] [place], Creatinine [Mass/Vol] 1.11 mg/dL Normal 0.80-1.30 [facility] Comment on above: Performed By: #### H EPATIC, PHOS, CH8, TRIG, MG ####[facility] PATHOLOGY [id number] [place], ESTIMATED GFR (CKD-EPI) 65 mL/min/1.73sqm Normal >=60 [facility] Comment on above: Performed By: #### H EPATIC, PHOS, CH8, TRIG, MG ####S PATHOLOGY [id number] [place], Glucose [Mass/Vol] 196 mg/dL High 80-116 [facility] Comment on above: Performed By: #### H EPATIC, PHOS, CH8, TRIG, MG ####S PATHOLOGY [id number] [place], Potassium [Moles/Vol] 4.3 mmol/L Normal 3.3-5.3 [facility] Comment on above: Performed By: #### H EPATIC, PHOS, CH8, TRIG, MG ####[facility] PATHOLOGY [id number] [place], Sodium [Moles/Vol] 140 mmol/L Normal 135-148 [facility] Comment on above: Performed By: #### H EPATIC, PHOS, CH8, TRIG, MG ####[facility] PATHOLOGY [id number] [place], Urea nitrogen [Mass/Vol] 30 mg/dL High 8-22 [facility] Comment on above: Performed By: #### H EPATIC, PHOS, CH8, TRIG, MG ####[facility] PATHOLOGY [id number] [place] [address], CBC WITH DIFFERENTIALon 10-2 Basophils (Bld) [#/Vol] 0.09 10*3/uL Normal 0.00-0.20 [facility] Comment on above: Performed By: #### C BCDSAT ####[facility] PATHOLOGY [id number] [place] [address], Basophils/100 WBC (Bld) 0.5 % Normal <=1.9 [facility] Comment on above: Performed By: #### C BCDSAT ####[facility] PATHOLOGY [id number] [place], Eosinophils (Bld) [#/Vol] 0.35 10*3/uL Normal 0.00-0.70 [facility] Comment on above: Performed By: #### C BCDSAT ####[facility] PATHOLOGY [id number] [place] [address], Eosinophils/100 WBC (Bld) 2.0 % Normal 0.1-4.0 [facility] Comment on above: Performed By: #### C BCDSAT ####[facility] PATHOLOGY [id number] [place] [address], Erythrocyte distribution width (RBC) [Ratio] 14.4 % Normal 11.5-14.5 [facility] Comment on above: Performed By: #### C VERAAT ####[facility] PATHOLOGY [id number] [place], Hematocrit (Bld) [Volume fraction] 24.3 % Low 41.0-53.0 [facility] Comment on above: Performed By: #### C VERAAT ####[facility] PATHOLOGY [id number] [place], Hemoglobin (Bld) [Mass/Vol] 8.1 g/dL Low 13.9-16.3 [facility] Comment on above: Performed By: #### C VERAAT ####[facility] PATHOLOGY [id number] [place] [address], Lymphocytes (Bld) [#/Vol] 1.18 10*3/uL Normal 1.00-4.80 [facility] Comment on above: Performed By: #### C VERAAT ####[facility] PATHOLOGY [id number] [place] [address], Lymphocytes/100 WBC (Bld) 6.5 % Low 24.0-44.0 [facility] Comment on above: Performed By: #### Deborah GAMEZAT ####[facility] PATHOLOGY [id number] [place], MCH (RBC) [Entitic mass] 30.9 pg Normal 26.0-34.0 [facility] Comment on above: Performed By: #### C VERAAT ####[facility] PATHOLOGY [id number] [place], MCHC (RBC) [Mass/Vol] 33.3 g/dL Normal 32.0-35.9 [facility] Comment on above: Performed By: #### C VERAAT ####[facility] PATHOLOGY [id number] [place], MCV (RBC) [Entitic vol] 93 fL Normal 80-100 [facility] Comment on above: Performed By: #### C VERAAT ####[facility] PATHOLOGY [id number] [place], MONOCYTE DISTRIBUTION WIDTH Normal [facility] Comment on above: Performed By: #### Deborah GRUBBSDSAT ####[facility] PATHOLOGY [id number] [place], Monocytes (Bld) [#/Vol] 1.41 10*3/uL High 0.20-1.00 [facility] Comment on above: Performed By: #### Deborah GAMEZAT ####[facility] PATHOLOGY [id number] [place], Monocytes/100 WBC (Bld) 7.8 % Normal 2.0-11.0 [facility] Comment on above: Performed By: #### Deborah GAMEZAT ####[facility] PATHOLOGY [id number] [place] [address], Neutrophils (Bld) [#/Vol] 15.08 10*3/uL High 1.50-8.00 [facility] Comment on above: Performed By: #### Deborah GAMEZAT ####[facility] PATHOLOGY [id number] [place] [address], Neutrophils/100 WBC (Bld) 83.3 % High 31.0-76.0 [facility] Comment on above: Performed By: #### Deborah GAMEZAT ####[facility] PATHOLOGY [id number] [place], Platelet mean volume (Bld) [Entitic vol] 10.2 fL Normal 7.5-11.2 [facility] Comment on above: Performed By: #### Deborah BCMARIAMAAT ####[facility] PATHOLOGY [id number] [place], Platelets (Bld) [#/Vol] 210 10*3/uL Normal 150-400 [facility] Comment on above: Performed By: #### Deborah GAMEZAT ####[facility] PATHOLOGY [id number] [place], RBC (Bld) [#/Vol] 2.62 10*6/uL Low 4.50-5.90 [facility] Comment on above: Performed By: #### Deborah GAMEZAT ####[facility] PATHOLOGY [id number] [place], WBC (Bld) [#/Vol] 18.1 10*3/uL High 4.5-11.5 [facility] Comment on above: Performed By: #### C BCDSAT ####[facility] PATHOLOGY [id number] [place], Basophils (Bld) [#/Vol] 0.18 10*3/uL Normal 0.00-0.20 [facility] Comment on above: Performed By: #### C BCDSAT ####[facility] PATHOLOGY [id number] [place], Basophils/100 WBC (Bld) 0.9 % Normal <=1.9 [facility] Comment on above: Performed By: #### C BCDSAT ####[facility] PATHOLOGY [id number] [place] [address], Eosinophils (Bld) [#/Vol] 0.50 10*3/uL Normal 0.00-0.70 [facility] Comment on above: Performed By: #### C BCDSAT ####[facility] PATHOLOGY [id number] [place] [place], Eosinophils/100 WBC (Bld) 2.5 % Normal 0.1-4.0 [facility] Comment on above: Performed By: #### C BCDSAT ####[facility] PATHOLOGY [id number] [place], Erythrocyte distribution width (RBC) [Ratio] 14.4 % Normal 11.5-14.5 [facility] Comment on above: Performed By: #### C BCDSAT ####[facility] PATHOLOGY [id number] [place], Hematocrit (Bld) [Volume fraction] 24.3 % Low 41.0-53.0 [facility] Comment on above: Performed By: #### C BCDSAT ####[facility] PATHOLOGY [id number] [place], Hemoglobin (Bld) [Mass/Vol] 8.1 g/dL Low 13.9-16.3 [facility] Comment on above: Performed By: #### C HUMERADSAT ####[facility] PATHOLOGY [id number] [place], Lymphocytes (Bld) [#/Vol] 1.28 10*3/uL Normal 1.00-4.80 [facility] Comment on above: Performed By: #### C VERAAT ####[facility] PATHOLOGY [id number] [place], Lymphocytes/100 WBC (Bld) 6.4 % Low 24.0-44.0 [facility] Comment on above: Performed By: #### Deborah GAMEZAT ####[facility] PATHOLOGY [id number] [place], MCH (RBC) [Entitic mass] 30.6 pg Normal 26.0-34.0 [facility] Comment on above: Performed By: #### Deborah GAMEZAT ####[facility] PATHOLOGY [id number] [place] [address], MCHC (RBC) [Mass/Vol] 33.1 g/dL Normal 32.0-35.9 [facility] Comment on above: Performed By: #### Deborah GAMEZAT ####[facility] PATHOLOGY [id number] [place], MCV (RBC) [Entitic vol] 93 fL Normal 80-100 [facility] Comment on above: Performed By: #### Deborah GAMEZAT ####[facility] PATHOLOGY [id number] [place] [address], MONOCYTE DISTRIBUTION WIDTH Normal [facility] Comment on above: Performed By: #### Deborah GAMEZAT ####[facility] PATHOLOGY [id number] [place], Monocytes (Bld) [#/Vol] 2.23 10*3/uL High 0.20-1.00 [facility] Comment on above: Performed By: #### Deborah GAMEZAT ####[facility] PATHOLOGY [id number] [place], Monocytes/100 WBC (Bld) 11.2 % High 2.0-11.0 [facility] Comment on above: Performed By: #### Deborah GAMEZAT ####[facility] PATHOLOGY [id number] [place], Neutrophils (Bld) [#/Vol] 15.70 10*3/uL High 1.50-8.00 [facility] Comment on above: Performed By: #### Deborah GAMEZAT ####[facility] PATHOLOGY [id number] [place] [address], Neutrophils/100 WBC (Bld) 79.0 % High 31.0-76.0 [facility] Comment on above: Performed By: #### Deborah GAMEZAT ####[facility] PATHOLOGY [id number] [place] [address], Platelet mean volume (Bld) [Entitic vol] 10.1 fL Normal 7.5-11.2 [facility] Comment on above: Performed By: #### Deborah GAMEZAT ####[facility] PATHOLOGY [id number] [place] [address], Platelets (Bld) [#/Vol] 209 10*3/uL Normal 150-400 [facility] Comment on above: Performed By: #### Deborah GAMEZAT ####[facility] PATHOLOGY [id number] [place] [address], RBC (Bld) [#/Vol] 2.63 10*6/uL Low 4.50-5.90 [facility] Comment on above: Performed By: #### Deborah GAMEZAT ####[facility] PATHOLOGY [id number] [place] [address], WBC (Bld) [#/Vol] 19.9 10*3/uL High 4.5-11.5 [facility] Comment on above: Performed By: #### Deborah GAMEZAT ####[facility] PATHOLOGY [id number] [place], Basophils (Bld) [#/Vol] 0.06 10*3/uL Normal 0.00-0.20 [facility] Comment on above: Performed By: #### Deborah GAMEZAT ####[facility] PATHOLOGY [id number] [place], Basophils/100 WBC (Bld) 0.3 % Normal <=1.9 [facility] Comment on above: Performed By: #### C BCDSAT ####[facility] PATHOLOGY [id number] [place], Eosinophils (Bld) [#/Vol] 0.45 10*3/uL Normal 0.00-0.70 [facility] Comment on above: Performed By: #### C BCDSAT ####[facility] PATHOLOGY [id number] [place], Eosinophils/100 WBC (Bld) 2.4 % Normal 0.1-4.0 [facility] Comment on above: Performed By: #### C BCDSAT ####[facility] PATHOLOGY [id number] [place], Erythrocyte distribution width (RBC) [Ratio] 14.5 % Normal 11.5-14.5 [facility] Comment on above: Performed By: #### C BCDSAT ####[facility] PATHOLOGY [id number] [place], Hematocrit (Bld) [Volume fraction] 25.2 % Low 41.0-53.0 [facility] Comment on above: Performed By: #### C BCDSAT ####[facility] PATHOLOGY [id number] [place], Hemoglobin (Bld) [Mass/Vol] 8.1 g/dL Low 13.9-16.3 [facility] Comment on above: Performed By: #### C BCDSAT ####[facility] PATHOLOGY [id number] [place], Lymphocytes (Bld) [#/Vol] 1.14 10*3/uL Normal 1.00-4.80 [facility] Comment on above: Performed By: #### C BCDSAT ####[facility] PATHOLOGY [id number] [place], Lymphocytes/100 WBC (Bld) 6.2 % Low 24.0-44.0 [facility] Comment on above: Performed By: #### C BCDSAT ####[facility] PATHOLOGY [id number] [place], MCH (RBC) [Entitic mass] 30.9 pg Normal 26.0-34.0 [facility] Comment on above: Performed By: #### C BCDSAT ####[facility] PATHOLOGY [id number] [place], MCHC (RBC) [Mass/Vol] 32.1 g/dL Normal 32.0-35.9 [facility] Comment on above: Performed By: #### C BCDSAT ####[facility] PATHOLOGY [id number] [place], MCV (RBC) [Entitic vol] 96 fL Normal 80-100 [facility] Comment on above: Performed By: #### C BCDSAT ####[facility] PATHOLOGY [id number] [place], MONOCYTE DISTRIBUTION WIDTH Normal [facility] Comment on above: Performed By: #### C BCDSAT ####[facility] PATHOLOGY [id number] [place], Monocytes (Bld) [#/Vol] 1.91 10*3/uL High 0.20-1.00 [facility] Comment on above: Performed By: #### C BCDSAT ####[facility] PATHOLOGY [id number] [place], Monocytes/100 WBC (Bld) 10.3 % Normal 2.0-11.0 [facility] Comment on above: Performed By: #### C BCDSAT ####[facility] PATHOLOGY [id number] [place], Neutrophils (Bld) [#/Vol] 14.99 10*3/uL High 1.50-8.00 [facility] Comment on above: Performed By: #### C BCDSAT ####[facility] PATHOLOGY [id number] [place], Neutrophils/100 WBC (Bld) 80.9 % High 31.0-76.0 [facility] Comment on above: Performed By: #### C BCDSAT ####S PATHOLOGY [id number] [place], Platelet mean volume (Bld) [Entitic vol] 10.0 fL Normal 7.5-11.2 [facility] Comment on above: Performed By: #### C BCDSAT ####S PATHOLOGY [id number] [place], Platelets (Bld) [#/Vol] 200 10*3/uL Normal 150-400 [facility] Comment on above: Performed By: #### C HUMERADSAT ####S PATHOLOGY [id number] [place], RBC (Bld) [#/Vol] 2.62 10*6/uL Low 4.50-5.90 [facility] Comment on above: Performed By: #### C VERAAT ####S PATHOLOGY [id number] [place], WBC (Bld) [#/Vol] 18.5 10*3/uL High 4.5-11.5 [facility] Comment on above: Performed By: #### C VERAAT ####[facility] PATHOLOGY [id number] [place], Care Plan Noteon 03-24-2021 [employer] Authentication Interface Message Text Normal [facility] Consultson 03-24-2021 [employer] Authentication Interface Message Text Normal [facility] [employer] Authentication Interface Message Text Normal [facility] [employer] Authentication Interface Message Text Normal [facility] GLUCOSE, FINGERSTICK-IN OFFI CEon 03-24-2021 Glucose [Mass/Vol] 222 mg/dL High 80-116 [facility] Comment on above: Performed By: #### [id number] ####NURSING GLUCOSE [id number] [place], Glucose [Mass/Vol] 156 mg/dL High 80-116 [facility] Comment on above: Result Comment: Foll ow Protocol Performed By: #### 8 [id number] ####NURSING GLUCOSE [id number] [place], [address] Glucose [Mass/Vol] 185 mg/dL High 80-116 [facility] Comment on above: Result Comment: Foll ow Protocol Performed By: #### 8 [id number] ####NURSING GLUCOSE [id number] [place], [address] Glucose [Mass/Vol] 228 mg/dL High 80-116 [facility] Comment on above: Result Comment: Salvador jovel RN, APN, MD Performed By: #### 8 [id number] ####NURSING GLUCOSE [id number] [place], [address] Glucose [Mass/Vol] 212 mg/dL High 80-116 [facility] Comment on above: Result Comment: Salvador jovel RN, APN, MD Performed By: #### 8 [id number] ####NURSING GLUCOSE [id number] [place], [address] HEPATIC FUNCTION PANELon Albumin [Mass/Vol] 2.7 g/dL Low 3.4-5.1 [facility] Comment on above: Performed By: #### H EPATIC, PHOS, CH8, TRIG, MG ####[facility] [id number] [place] [address], ALK 75 IU/L Normal 40-200 [facility] Comment on above: Performed By: #### H EPATIC, PHOS, CH8, TRIG, MG ####[facility] [id number] [place], ALT [Catalytic activity/Vol] 50 U/L High 7-40 [facility] Comment on above: Performed By: #### H EPATIC, PHOS, CH8, TRIG, MG ####[facility] [id number] [place], AST [Catalytic activity/Vol] 57 U/L High 7-40 [facility] Comment on above: Performed By: #### H EPATIC, PHOS, CH8, TRIG, MG ####[facility] [id number] [place], Bilirubin [Mass/Vol] 0.7 mg/dL Normal 0.1-1.5 [facility] Comment on above: Performed By: #### H EPATIC, PHOS, CH8, TRIG, MG ####S PATHOLOGY [id number] [place], Bilirubin.direct [Mass/Vol] 0.50 mg/dL High 0.10-0.30 [facility] Comment on above: Performed By: #### H EPATIC, PHOS, CH8, TRIG, MG ####[facility] [id number] [place], Protein [Mass/Vol] 5.9 g/dL Normal 5.7-8.1 [facility] Comment on above: Performed By: #### H EPATIC, PHOS, CH8, TRIG, MG ####[facility] [id number] [place], MAGNESIUMon 03-24-2021 Magnesium [Mass/Vol] 2.2 mg/dL Normal 1.6-2.8 [facility] Comment on above: Performed By: #### H EPATIC, PHOS, CH8, TRIG, MG ####S PATHOLOGY [id number] [place], PHOSPHORUSon 03-24-2021 Phosphate [Mass/Vol] 3.5 mg/dL Normal 2.3-4.2 [facility] Comment on above: Performed By: #### H EPATIC, PHOS, CH8, TRIG, MG ####S PATHOLOGY [id number] [place], Progress Noteson 03-24-2021 [employer] Authentication Interface Message Text Normal [facility] [employer] Authentication Interface Message Text Normal [facility] [employer] Authentication Interface Message Text Normal [facility] [employer] Authentication Interface Message Text Normal [facility] [employer] Authentication Interface Message Text As patient is transitioned off amiodarone gtt for WCT, no indication to start oral amiodarone. Patient to get 30-day event monitor and follow up with EP in 4 weeks. Normal [facility] [employer] [facility] TRIGLYCERIDESon 03-24-2021 Triglyceride [Mass/Vol] 152 mg/dL High <151 [facility] Comment on above: Performed By: #### H EPATIC, PHOS, CH8, TRIG, MG ####[facility] [id number] [place], Transfer Noteon 03-24-2021 [employer] Authentication Interface Message Text Normal [facility] BASIC METABOLIC PANELon 03-05 Anion gap [Moles/Vol] 15 mmol/L Normal 10-20 [facility] Comment on above: Performed By: #### Deborah Jeronimo MG, LISSETH ####[facility] [id number] [place], Calcium [Mass/Vol] 8.3 mg/dL Low 8.4-10.4 [facility] Comment on above: Performed By: #### MG Méndez PHOS ####[facility] [id number] [place], Chloride [Moles/Vol] 104 mmol/L Normal 97-111 [facility] Comment on above: Performed By: #### MG Méndez PHOS ####[facility] [id number] [place], CO2 [Moles/Vol] 25 mmol/L Normal 21-30 [facility] Comment on above: Performed By: #### MG Méndez PHOS ####[facility] [id number] [place], Creatinine [Mass/Vol] 1.13 mg/dL Normal 0.80-1.30 [facility] Comment on above: Performed By: #### Deborah Jeronimo MG, BRIDGETTS ####[facility] [id number] [place], ESTIMATED GFR (CKD-EPI) 63 mL/min/1.73sqm Normal >=60 [facility] Comment on above: Performed By: #### Deborah Jeronimo MG PHOS ####[facility] [id number] [place], Glucose [Mass/Vol] 238 mg/dL High 80-116 [facility] Comment on above: Performed By: #### Deborah Jeronimo MGBRIDGETTS ####[facility] [id number] [place], Potassium [Moles/Vol] 4.7 mmol/L Normal 3.3-5.3 [facility] Comment on above: Result Comment: Hemo lysis present Performed By: #### MG Dev, LISSETH ####S PATHOLOGY [id number] [place], Sodium [Moles/Vol] 139 mmol/L Normal 135-148 [facility] Comment on above: Performed By: #### MG Dev, LISSETH ####S PATHOLOGY [id number] [place], Urea nitrogen [Mass/Vol] 32 mg/dL High 8-22 [facility] Comment on above: Performed By: #### MG Dev, LISSETH ####[facility] PATHOLOGY [id number] [place], CBC WITH DIFFERENTIALon 10-2 -2020 Basophils (Bld) [#/Vol] 0.04 10*3/uL Normal 0.00-0.20 [facility] Comment on above: Performed By: #### C BCDSAT ####[facility] PATHOLOGY [id number] [place], Basophils/100 WBC (Bld) 0.2 % Normal <=1.9 [facility] Comment on above: Performed By: #### Deborah BCDSAT ####[facility] PATHOLOGY [id number] [place], Eosinophils (Bld) [#/Vol] 0.36 10*3/uL Normal 0.00-0.70 [facility] Comment on above: Performed By: #### Deborah BCDSAT ####S PATHOLOGY [id number] [place], Eosinophils/100 WBC (Bld) 1.9 % Normal 0.1-4.0 [facility] Comment on above: Performed By: #### C BCDSAT ####S PATHOLOGY [id number] [place], Erythrocyte distribution width (RBC) [Ratio] 14.1 % Normal 11.5-14.5 [facility] Comment on above: Performed By: #### C BCDSAT ####[facility] PATHOLOGY [id number] [place], Hematocrit (Bld) [Volume fraction] 26.1 % Low 41.0-53.0 [facility] Comment on above: Performed By: #### C BCDSAT ####[facility] PATHOLOGY [id number] [place], Hemoglobin (Bld) [Mass/Vol] 8.8 g/dL Low 13.9-16.3 [facility] Comment on above: Performed By: #### C BCDSAT ####[facility] PATHOLOGY [id number] [place] [address], Lymphocytes (Bld) [#/Vol] 1.10 10*3/uL Normal 1.00-4.80 [facility] Comment on above: Performed By: #### C HUMERADSAT ####[facility] PATHOLOGY [id number] [place] [address], Lymphocytes/100 WBC (Bld) 5.7 % Low 24.0-44.0 [facility] Comment on above: Performed By: #### C VERAAT ####[facility] PATHOLOGY [id number] [place] [address], MCH (RBC) [Entitic mass] 31.4 pg Normal 26.0-34.0 [facility] Comment on above: Performed By: #### C BCDSAT ####[facility] PATHOLOGY [id number] [place] [address], MCHC (RBC) [Mass/Vol] 33.7 g/dL Normal 32.0-35.9 [facility] Comment on above: Performed By: #### C BCDSAT ####[facility] PATHOLOGY [id number] [place], MCV (RBC) [Entitic vol] 93 fL Normal 80-100 [facility] Comment on above: Performed By: #### C BCDSAT ####[facility] PATHOLOGY [id number] [place] [address], MONOCYTE DISTRIBUTION WIDTH Normal [facility] Comment on above: Performed By: #### C BCDSAT ####[facility] PATHOLOGY [id number] [place], Monocytes (Bld) [#/Vol] 2.00 10*3/uL High 0.20-1.00 [facility] Comment on above: Performed By: #### C BCDSAT ####[facility] PATHOLOGY [id number] [place], Monocytes/100 WBC (Bld) 10.4 % Normal 2.0-11.0 [facility] Comment on above: Performed By: #### C BCDSAT ####[facility] PATHOLOGY [id number] [place] [address], Neutrophils (Bld) [#/Vol] 15.73 10*3/uL High 1.50-8.00 [facility] Comment on above: Performed By: #### C HUMERADSAT ####[facility] PATHOLOGY [id number] [place] [address], Neutrophils/100 WBC (Bld) 81.8 % High 31.0-76.0 [facility] Comment on above: Performed By: #### Deborah GAMEZAT ####[facility] PATHOLOGY [id number] [place] [address], Platelet mean volume (Bld) [Entitic vol] 10.1 fL Normal 7.5-11.2 [facility] Comment on above: Performed By: #### Deborah BCDSAT ####[facility] PATHOLOGY [id number] [place], Platelets (Bld) [#/Vol] 215 10*3/uL Normal 150-400 [facility] Comment on above: Performed By: #### Deborah BCDSAT ####[facility] PATHOLOGY [id number] [place], RBC (Bld) [#/Vol] 2.80 10*6/uL Low 4.50-5.90 [facility] Comment on above: Performed By: #### Deborah BCDSAT ####[facility] PATHOLOGY [id number] [place] [address] [place], WBC (Bld) [#/Vol] 19.2 10*3/uL High 4.5-11.5 [facility] Comment on above: Performed By: #### C BCDSAT ####[facility] PATHOLOGY [id number] [place], Basophils (Bld) [#/Vol] 0.07 10*3/uL Normal 0.00-0.20 [facility] Comment on above: Performed By: #### C BCDSAT ####[facility] PATHOLOGY [id number] [place] [address], Basophils/100 WBC (Bld) 0.4 % Normal <=1.9 [facility] Comment on above: Performed By: #### C BCDSAT ####[facility] PATHOLOGY [id number] [place] [address], Eosinophils (Bld) [#/Vol] 0.26 10*3/uL Normal 0.00-0.70 [facility] Comment on above: Performed By: #### C BCDSAT ####[facility] PATHOLOGY [id number] [place] [address], Eosinophils/100 WBC (Bld) 1.3 % Normal 0.1-4.0 [facility] Comment on above: Performed By: #### C BCDSAT ####[facility] PATHOLOGY [id number] [place] [address], Erythrocyte distribution width (RBC) [Ratio] 14.2 % Normal 11.5-14.5 [facility] Comment on above: Performed By: #### C BCDSAT ####[facility] PATHOLOGY [id number] [place] [address], Hematocrit (Bld) [Volume fraction] 26.4 % Low 41.0-53.0 [facility] Comment on above: Performed By: #### C BCDSAT ####S PATHOLOGY TYFEHPIALY65[address] [place] [address], Hemoglobin (Bld) [Mass/Vol] 8.7 g/dL Low 13.9-16.3 [facility] Comment on above: Performed By: #### C BCDSAT ####[facility] PATHOLOGY [id number] [place], Lymphocytes (Bld) [#/Vol] 1.15 10*3/uL Normal 1.00-4.80 [facility] Comment on above: Performed By: #### C BCDSAT ####[facility] PATHOLOGY [id number] [place], Lymphocytes/100 WBC (Bld) 6.0 % Low 24.0-44.0 [facility] Comment on above: Performed By: #### C BCDSAT ####[facility] PATHOLOGY [id number] [place], MCH (RBC) [Entitic mass] 30.4 pg Normal 26.0-34.0 [facility] Comment on above: Performed By: #### C BCDSAT ####[facility] PATHOLOGY [id number] [place] [address], MCHC (RBC) [Mass/Vol] 32.9 g/dL Normal 32.0-35.9 [facility] Comment on above: Performed By: #### C BCDSAT ####[facility] PATHOLOGY [id number] [place], MCV (RBC) [Entitic vol] 92 fL Normal 80-100 [facility] Comment on above: Performed By: #### C BCDSAT ####[facility] PATHOLOGY [id number] [place], MONOCYTE DISTRIBUTION WIDTH Normal [facility] Comment on above: Performed By: #### C BCDSAT ####S PATHOLOGY [id number] [place], Monocytes (Bld) [#/Vol] 1.99 10*3/uL High 0.20-1.00 [facility] Comment on above: Performed By: #### C BCDSAT ####[facility] PATHOLOGY [id number] [place], Monocytes/100 WBC (Bld) 10.4 % Normal 2.0-11.0 [facility] Comment on above: Performed By: #### C BCDSAT ####[facility] PATHOLOGY [id number] [place], Neutrophils (Bld) [#/Vol] 15.68 10*3/uL High 1.50-8.00 [facility] Comment on above: Performed By: #### C BCDSAT ####[facility] PATHOLOGY [id number] [place], Neutrophils/100 WBC (Bld) 81.9 % High 31.0-76.0 [facility] Comment on above: Performed By: #### C BCDSAT ####[facility] PATHOLOGY [id number] [place], Platelet mean volume (Bld) [Entitic vol] 9.5 fL Normal 7.5-11.2 [facility] Comment on above: Performed By: #### C BCDSAT ####[facility] PATHOLOGY [id number] [place] [address], Platelets (Bld) [#/Vol] 211 10*3/uL Normal 150-400 [facility] Comment on above: Performed By: #### C BCDSAT ####[facility] PATHOLOGY [id number] [place], RBC (Bld) [#/Vol] 2.87 10*6/uL Low 4.50-5.90 [facility] Comment on above: Performed By: #### C BCDSAT ####[facility] PATHOLOGY [id number] [place] [address], WBC (Bld) [#/Vol] 19.1 10*3/uL High 4.5-11.5 [facility] Comment on above: Performed By: #### C BCDSAT ####[facility] PATHOLOGY [id number] [place], Basophils (Bld) [#/Vol] 0.05 10*3/uL Normal 0.00-0.20 [facility] Comment on above: Performed By: #### C BCDSAT ####[facility] PATHOLOGY [id number] [place] [address], Basophils/100 WBC (Bld) 0.3 % Normal <=1.9 [facility] Comment on above: Performed By: #### C BCDSAT ####[facility] PATHOLOGY [id number] [place], Eosinophils (Bld) [#/Vol] 0.09 10*3/uL Normal 0.00-0.70 [facility] Comment on above: Performed By: #### C BCDSAT ####[facility] PATHOLOGY [id number] [place], Eosinophils/100 WBC (Bld) 0.5 % Normal 0.1-4.0 [facility] Comment on above: Performed By: #### C BCDSAT ####[facility] PATHOLOGY [id number] [place], Erythrocyte distribution width (RBC) [Ratio] 14.1 % Normal 11.5-14.5 [facility] Comment on above: Performed By: #### C BCDSAT ####[facility] PATHOLOGY [id number] [place] [address], Hematocrit (Bld) [Volume fraction] 28.5 % Low 41.0-53.0 [facility] Comment on above: Performed By: #### C BCDSAT ####[facility] PATHOLOGY [id number] [place], Hemoglobin (Bld) [Mass/Vol] 9.6 g/dL Low 13.9-16.3 [facility] Comment on above: Performed By: #### C BCDSAT ####[facility] PATHOLOGY [id number] [place], Lymphocytes (Bld) [#/Vol] 0.92 10*3/uL Low 1.00-4.80 [facility] Comment on above: Performed By: #### C BCDSAT ####[facility] PATHOLOGY [id number] [place], Lymphocytes/100 WBC (Bld) 4.9 % Low 24.0-44.0 [facility] Comment on above: Performed By: #### C BCDSAT ####[facility] PATHOLOGY [id number] [place], MCH (RBC) [Entitic mass] 31.3 pg Normal 26.0-34.0 [facility] Comment on above: Performed By: #### Deborah GAMEZAT ####[facility] PATHOLOGY [id number] [place], MCHC (RBC) [Mass/Vol] 33.7 g/dL Normal 32.0-35.9 [facility] Comment on above: Performed By: #### C VERAAT ####[facility] PATHOLOGY [id number] [place], MCV (RBC) [Entitic vol] 93 fL Normal 80-100 [facility] Comment on above: Performed By: #### Deborah GAMEZAT ####[facility] PATHOLOGY [id number] [place] [address], MONOCYTE DISTRIBUTION WIDTH Normal [facility] Comment on above: Performed By: #### Deborah GAMEZAT ####[facility] PATHOLOGY [id number] [place] [address], Monocytes (Bld) [#/Vol] 1.89 10*3/uL High 0.20-1.00 [facility] Comment on above: Performed By: #### Deborah GAMEZAT ####[facility] PATHOLOGY [id number] [place], Monocytes/100 WBC (Bld) 10.0 % Normal 2.0-11.0 [facility] Comment on above: Performed By: #### C BCDSAT ####[facility] PATHOLOGY [id number] [place] [address], Neutrophils (Bld) [#/Vol] 15.95 10*3/uL High 1.50-8.00 [facility] Comment on above: Performed By: #### C BCMARIAMAAT ####[facility] PATHOLOGY [id number] [place], Neutrophils/100 WBC (Bld) 84.4 % High 31.0-76.0 [facility] Comment on above: Performed By: #### Deborah BCMARIAMAAT ####S PATHOLOGY [id number] [place], Platelet mean volume (Bld) [Entitic vol] 9.9 fL Normal 7.5-11.2 [facility] Comment on above: Performed By: #### C BCDSAT ####[facility] [id number] [place], Platelets (Bld) [#/Vol] 210 10*3/uL Normal 150-400 [facility] Comment on above: Performed By: #### C BCDSAT ####[facility] [id number] [place], RBC (Bld) [#/Vol] 3.07 10*6/uL Low 4.50-5.90 [facility] Comment on above: Performed By: #### C BCDSAT ####[facility] PATHOLOGY [id number] [place], WBC (Bld) [#/Vol] 18.9 10*3/uL High 4.5-11.5 [facility] Comment on above: Performed By: #### C BCDSAT ####[facility] PATHOLOGY [id number] [place], CTA GI BLEEDon 03-23-2021 CTA GI BLEED Normal [facility] Care Plan Noteon 03-23-2021 [employer] Authentication Interface Message Text Normal [facility] [employer] Authentication Interface Message Text Normal [facility] Consultson 03-23-2021 [employer] Authentication Interface Message Text Normal [facility] [employer] Authentication Interface Message Text ACUTE PHYSICAL THERAPY Attempted to see patient for PT visit this date. Patient refused treatment this date due to just getting back from [place] and c/o being too tired. Will follow up as able. Heidi Lambert PT Normal [facility] [employer] Authentication Interface Message Text Normal [facility] [employer] Authentication Interface Message Text Normal [facility] GLUCOSE, FINGERSTICK-IN OFFI CEon 03-23-2021 Glucose [Mass/Vol] 216 mg/dL High 80-116 [facility] Comment on above: Result Comment: Salvador jovel RN, APN, MD Performed By: #### 8 2948 ####NURSING GLUCOSE [id number] [place], [address] Glucose [Mass/Vol] 221 mg/dL High 80-116 [facility] Comment on above: Result Comment: Salvador jovel RN, APN, MD Performed By: #### 8 2948 ####NURSING GLUCOSE [id number] [place], [address] Glucose [Mass/Vol] 237 mg/dL High 80-116 [facility] Comment on above: Performed By: #### 8 2948 ####NURSING GLUCOSE [id number] [place], [address] Glucose [Mass/Vol] 266 mg/dL High 80-116 [facility] Comment on above: Result Comment: Salvador jovel RN, APN, MD Performed By: #### 8 2948 ####NURSING GLUCOSE [id number] [place], [address] MAGNESIUMon 03-23-2021 Magnesium [Mass/Vol] 2.2 mg/dL Normal 1.6-2.8 [facility] Comment on above: Result Comment: Hemo lysis present Performed By: #### C H8, MG, PHOS ####[facility] [id number] [place], PHOSPHORUSon 03-23-2021 Phosphate [Mass/Vol] 3.8 mg/dL Normal 2.3-4.2 [facility] Comment on above: Performed By: #### C H8, MG, PHOS ####[facility] [id number] [place], Progress Noteson 03-23-2021 [employer] Authentication Interface Message Text Normal [facility] [employer] Authentication Interface Message Text Normal [facility] [employer] Authentication Interface Message Text Normal [facility] [employer] Authentication Interface Message Text Normal [facility] [employer] Authentication Interface Message Text Normal [facility] [employer] Authentication Interface Message Text Normal [facility] BASIC METABOLIC PANELon 03-04 Anion gap [Moles/Vol] 17 mmol/L Normal 03-23 [facility] Comment on above: Performed By: #### C H8, HEPATIC, MG, PHOS, TRIG ####S PATHOLOGY [id number] [place], Calcium [Mass/Vol] 8.4 mg/dL Normal 8.4-10.4 [facility] Comment on above: Performed By: #### C H8, HEPATIC, MG, PHOS, TRIG ####[facility] [id number] [place], Chloride [Moles/Vol] 103 mmol/L Normal 97-111 [facility] Comment on above: Performed By: #### C H8, HEPATIC, MG, PHOS, TRIG ####S PATHOLOGY [id number] [place], CO2 [Moles/Vol] 23 mmol/L Normal 21-30 [facility] Comment on above: Performed By: #### C H8, HEPATIC, MG, PHOS, TRIG ####[facility] PATHOLOGY [id number] [place] [address], Creatinine [Mass/Vol] 1.03 mg/dL Normal 0.80-1.30 [facility] Comment on above: Performed By: #### C H8, HEPATIC, MG, PHOS, TRIG ####S PATHOLOGY [id number] [place] [address], ESTIMATED GFR (CKD-EPI) 71 mL/min/1.73sqm Normal >=60 [facility] Comment on above: Performed By: #### C H8, HEPATIC, MG, PHOS, TRIG ####S PATHOLOGY [id number] [place], Glucose [Mass/Vol] 205 mg/dL High 80-116 [facility] Comment on above: Performed By: #### C H8, HEPATIC, MG, PHOS, TRIG ####S PATHOLOGY [id number] [place] [address], Potassium [Moles/Vol] 3.5 mmol/L Normal 3.3-5.3 [facility] Comment on above: Performed By: #### C H8, HEPATIC, MG, PHOS, TRIG ####S PATHOLOGY [id number] [place], Sodium [Moles/Vol] 139 mmol/L Normal 135-148 [facility] Comment on above: Performed By: #### C H8, HEPATIC, MG, PHOS, TRIG ####S PATHOLOGY [id number] [place], Urea nitrogen [Mass/Vol] 24 mg/dL High 8-22 [facility] Comment on above: Performed By: #### C H8, HEPATIC, MG, PHOS, TRIG ####S PATHOLOGY [id number] [place], CBC WITH DIFFERENTIALon 03-04 Erythrocyte distribution width (RBC) [Ratio] 14.1 % Normal 11.5-14.5 [facility] Comment on above: Performed By: #### M DIFF, CBCDSAT ####[facility] PATHOLOGY [id number] [place], Hematocrit (Bld) [Volume fraction] 29.6 % Low 41.0-53.0 [facility] Comment on above: Performed By: #### M DIFF, CBCDSAT ####[facility] PATHOLOGY [id number] [place], Hemoglobin (Bld) [Mass/Vol] 9.9 g/dL Low 13.9-16.3 [facility] Comment on above: Performed By: #### M DIFF, CBCDSAT ####[facility] PATHOLOGY [id number] [place], MCH (RBC) [Entitic mass] 30.9 pg Normal 26.0-34.0 [facility] Comment on above: Performed By: #### M DIFF, CBCDSAT ####[facility] PATHOLOGY [id number] [place], MCHC (RBC) [Mass/Vol] 33.6 g/dL Normal 32.0-35.9 [facility] Comment on above: Performed By: #### M DIFF, CBCDSAT ####[facility] PATHOLOGY [id number] [place], MCV (RBC) [Entitic vol] 92 fL Normal 80-100 [facility] Comment on above: Performed By: #### M DIFF, CBCDSAT ####[facility] PATHOLOGY [id number] [place], MONOCYTE DISTRIBUTION WIDTH Normal [facility] Comment on above: Performed By: #### M DIFF, CBCDSAT ####[facility] PATHOLOGY [id number] [place], Platelet mean volume (Bld) [Entitic vol] 9.6 fL Normal 7.5-11.2 [facility] Comment on above: Performed By: #### M DIFF, CBCDSAT ####[facility] PATHOLOGY [id number] [place] [address], Platelets (Bld) [#/Vol] 228 10*3/uL Normal 150-400 [facility] Comment on above: Performed By: #### M DIFF, CBCDSAT ####[facility] PATHOLOGY [id number] [place] [address], RBC (Bld) [#/Vol] 3.22 10*6/uL Low 4.50-5.90 [facility] Comment on above: Performed By: #### M DIFF, CBCDSAT ####[facility] PATHOLOGY [id number] [place] [address], WBC (Bld) [#/Vol] 19.0 10*3/uL High 4.5-11.5 [facility] Comment on above: Performed By: #### M DIFF, CBCDSAT ####[facility] PATHOLOGY [id number] [place] [address], Basophils (Bld) [#/Vol] 0.06 10*3/uL Normal 0.00-0.20 [facility] Comment on above: Performed By: #### C BCDSAT ####S PATHOLOGY [id number] [place] [address], Basophils/100 WBC (Bld) 0.4 % Normal <=1.9 [facility] Comment on above: Performed By: #### C BCDSAT ####S PATHOLOGY [id number] [place] [address], Eosinophils (Bld) [#/Vol] 0.38 10*3/uL Normal 0.00-0.70 [facility] Comment on above: Performed By: #### C HUMERADSAT ####[facility] PATHOLOGY [id number] [place], Eosinophils/100 WBC (Bld) 2.8 % Normal 0.1-4.0 [facility] Comment on above: Performed By: #### C VERAAT ####[facility] PATHOLOGY [id number] [place] [address], Erythrocyte distribution width (RBC) [Ratio] 14.4 % Normal 11.5-14.5 [facility] Comment on above: Performed By: #### C VERAAT ####[facility] PATHOLOGY [id number] [place] [address], Hematocrit (Bld) [Volume fraction] 33.1 % Low 41.0-53.0 [facility] Comment on above: Performed By: #### C VERAAT ####[facility] PATHOLOGY [id number] [place] [address], Hemoglobin (Bld) [Mass/Vol] 10.9 g/dL Low 13.9-16.3 [facility] Comment on above: Performed By: #### C VERAAT ####[facility] PATHOLOGY [id number] [place] [address], Lymphocytes (Bld) [#/Vol] 1.15 10*3/uL Normal 1.00-4.80 [facility] Comment on above: Performed By: #### C HUMERADSAT ####[facility] PATHOLOGY [id number] [place] [address], Lymphocytes/100 WBC (Bld) 8.5 % Low 24.0-44.0 [facility] Comment on above: Performed By: #### C BCMARIAMAAT ####[facility] PATHOLOGY [id number] [place], MCH (RBC) [Entitic mass] 30.4 pg Normal 26.0-34.0 [facility] Comment on above: Performed By: #### C BCMARIAMAAT ####S PATHOLOGY [id number] [place], MCHC (RBC) [Mass/Vol] 32.9 g/dL Normal 32.0-35.9 [facility] Comment on above: Performed By: #### Deborah GAMEZAT ####[facility] PATHOLOGY [id number] [place], MCV (RBC) [Entitic vol] 93 fL Normal 80-100 [facility] Comment on above: Performed By: #### Deborah GAMEZAT ####[facility] PATHOLOGY [id number] [place], MONOCYTE DISTRIBUTION WIDTH Normal [facility] Comment on above: Performed By: #### Deborah GAMEZAT ####[facility] PATHOLOGY [id number] [place], Monocytes (Bld) [#/Vol] 1.74 10*3/uL High 0.20-1.00 [facility] Comment on above: Performed By: #### Deborah GAMEZAT ####[facility] PATHOLOGY [id number] [place], Monocytes/100 WBC (Bld) 12.9 % High 2.0-11.0 [facility] Comment on above: Performed By: #### Deborah GAMEZAT ####[facility] PATHOLOGY [id number] [place], Neutrophils (Bld) [#/Vol] 10.24 10*3/uL High 1.50-8.00 [facility] Comment on above: Performed By: #### Deborah GAMEZAT ####[facility] PATHOLOGY [id number] [place], Neutrophils/100 WBC (Bld) 75.5 % Normal 31.0-76.0 [facility] Comment on above: Performed By: #### Deborah GAMEZAT ####[facility] PATHOLOGY [id number] [place], Platelet mean volume (Bld) [Entitic vol] 9.5 fL Normal 7.5-11.2 [facility] Comment on above: Performed By: #### C BCDSAT ####[facility] [id number] [place], Platelets (Bld) [#/Vol] 200 10*3/uL Normal 150-400 [facility] Comment on above: Performed By: #### C BCDSAT ####[facility] [id number] [place], RBC (Bld) [#/Vol] 3.58 10*6/uL Low 4.50-5.90 [facility] Comment on above: Performed By: #### C BCDSAT ####S PATHOLOGY [id number] [place], WBC (Bld) [#/Vol] 13.6 10*3/uL High 4.5-11.5 [facility] Comment on above: Performed By: #### C BCDSAT ####S PATHOLOGY SCYSVOWGQD5992 [place], CT PELVIS W/ CONTRASTon 03-04 CT PELVIS W/ CONTRAST Normal [facility] Care Plan Noteon 03-22-2021 [employer] Authentication Interface Message Text Normal [facility] Consultson 03-22-2021 [employer] Authentication Interface Message Text Normal [facility] [employer] Authentication Interface Message Text Normal [facility] [employer] Authentication Interface Message Text Normal [facility] [employer] Authentication Interface Message Text Physical Therapy New consult received. Pt currently on program. Please see notes in EPIC Lesa Taylor PT Normal [facility] GLUCOSE, FINGERSTICK-IN OFFI CEon 03-22-2021 Glucose [Mass/Vol] 235 mg/dL High 80-116 [facility] Comment on above: Result Comment: Salvador jovel RN, APN, MD Performed By: #### 8 4558 ####NURSING GLUCOSE [id number] [place], Glucose [Mass/Vol] 186 mg/dL High 80-116 [facility] Comment on above: Result Comment: Salvador jovel RN, APN, MD Performed By: #### 8 3561 ####NURSING GLUCOSE [id number] [place], Glucose [Mass/Vol] 173 mg/dL High 80-116 [facility] Comment on above: Result Comment: Salvador jovel RN, APN, MD Performed By: #### 8 2948 ####NURSING GLUCOSE [id number] [place], HEPATIC FUNCTION PANELon Albumin [Mass/Vol] 2.7 g/dL Low 3.4-5.1 [facility] Comment on above: Performed By: #### C H8, HEPATIC, MG, PHOS, TRIG ####[facility] [id number] [place], ALK 70 IU/L Normal 40-200 [facility] Comment on above: Performed By: #### C H8, HEPATIC, MG, PHOS, TRIG ####[facility] [id number] [place] [address], ALT [Catalytic activity/Vol] 53 U/L High 7-40 [facility] Comment on above: Performed By: #### C H8, HEPATIC, MG, PHOS, TRIG ####[facility] [id number] [place], AST [Catalytic activity/Vol] 38 U/L Normal 7-40 [facility] Comment on above: Performed By: #### C H8, HEPATIC, MG, PHOS, TRIG ####[facility] [id number] [place], Bilirubin [Mass/Vol] 1.1 mg/dL Normal 0.1-1.5 [facility] Comment on above: Performed By: #### C H8, HEPATIC, MG, PHOS, TRIG ####[facility] [id number] [place], Bilirubin.direct [Mass/Vol] 0.40 mg/dL High 0.10-0.30 [facility] Comment on above: Performed By: #### C H8, HEPATIC, MG, PHOS, TRIG ####[facility] [id number] [place], Protein [Mass/Vol] 5.8 g/dL Normal 5.7-8.1 [facility] Comment on above: Performed By: #### C H8, HEPATIC, MG, PHOS, TRIG ####S PATHOLOGY [id number] [place], MAGNESIUMon 03-22-2021 Magnesium [Mass/Vol] 1.9 mg/dL Normal 1.6-2.8 [facility] Comment on above: Performed By: #### C H8, HEPATIC, MG, PHOS, TRIG ####[facility] [id number] [place], MANUAL DIFF AND MORPHon 03-04 BANDS % BY MANUAL COUNT 1 % Normal <=10 [facility] Comment on above: Performed By: #### M DIFF, CBCDSAT ####[facility] PATHOLOGY [id number] [place], BANDS ABS BY MANUAL COUNT 0.19 K/uL High <0.01 [facility] Comment on above: Performed By: #### M DIFF, CBCDSAT ####S PATHOLOGY [id number] [place] [address], CELLS COUNTED TOTAL # IN BLOOD 100 Normal [facility] Comment on above: Performed By: #### M DIFF, CBCDSAT ####S PATHOLOGY [id number] [place], LYMPHOCYTES % BY MANUAL COUNT 5.0 % Low 24.0-44.0 [facility] Comment on above: Performed By: #### M DIFF, CBCDSAT ####S PATHOLOGY [id number] [place], LYMPHOCYTES ABS BY MANUAL COUNT 0.95 K/uL Low 1.00-4.80 [facility] Comment on above: Performed By: #### M DIFF, CBCDSAT ####S PATHOLOGY [id number] [place] [address], METAMYELOCYTES % BY MANUAL COUNT 1 % High <0 [facility] Comment on above: Performed By: #### M DIFF, CBCDSAT ####S PATHOLOGY [id number] [place] [address], METAMYELOCYTES ABS BY MANUAL COUNT 0.19 K/uL High <0.01 [facility] Comment on above: Performed By: #### M DIFF, CBCDSAT ####[facility] PATHOLOGY [id number] [place], MONOCYTES % BY MANUAL COUNT 8.0 % Normal 2.0-11.0 [facility] Comment on above: Performed By: #### M DIFF, CBCDSAT ####[facility] PATHOLOGY [id number] [place], MONOCYTES ABS BY MANUAL COUNT 1.52 K/uL High 0.20-1.00 [facility] Comment on above: Performed By: #### M DIFF, CBCDSAT ####[facility] PATHOLOGY [id number] [place] [address], NEUTROPHILS % BY MANUAL COUNT 85.0 % High 31.0-76.0 [facility] Comment on above: Performed By: #### M DIFF, CBCDSAT ####[facility] PATHOLOGY [id number] [place], NEUTROPHILS ABS BY MANUAL COUNT 16.15 K/uL High 1.50-8.00 [facility] Comment on above: Performed By: #### M DIFF, CBCDSAT ####[facility] PATHOLOGY [id number] [place] [address], OVALOCYTES Few Normal [facility] Comment on above: Performed By: #### M DIFF, CBCDSAT ####[facility] PATHOLOGY [id number] [place], POLYCHROMASIA Slight Normal [facility] Comment on above: Performed By: #### M DIFF, CBCDSAT ####S PATHOLOGY [id number] [place], Multidisciplinary Noteon [employer] Authentication Interface Message Text Normal [facility] PARTIAL THROMBOPLASTIN TIMEo n 03-22-2021 aPTT Coag (Bld) [Time] 83 s High 25-37 [facility] Comment on above: Performed By: #### A PTT, PT ####S PATHOLOGY VHHPEJUHUS19[address] [place] [address], PHOSPHORUSon 03-22-2021 Phosphate [Mass/Vol] 2.7 mg/dL Normal 2.3-4.2 [facility] Comment on above: Performed By: #### C H8, HEPATIC, MG, PHOS, TRIG ####[facility] [id number] [place], PROTHROMBIN TIME AND INRon INR Coag (PPP) [Relative time] 1.80 {INR} High 0.90-1.10 [facility] Comment on above: Performed By: #### A PTT, PT ####[facility] [id number] [place], [place], PT Coag (PPP) [Time] 19.9 s High 9.7-12.9 [facility] Comment on above: Performed By: #### A PTT, PT ####S PATHOLOGY [id number] [place], [place], Progress Noteson 03-22-2021 [employer] Authentication Interface Message Text 8:21 PM Attempted to call daughter with update about [place]. Home number unidentified individual answered stating they were not the listed contact Dominique Dipesh. No answer on mobile number. Will plan to update tomorrow or if she calls. Normal [facility] [employer] [facility] [employer] Authentication Interface Message Text Normal [facility] [employer] [facility] [employer] Authentication Interface Message Text Normal [facility] [employer] Authentication Interface Message Text Normal [facility] [employer] Authentication Interface Message Text Normal [facility] TRIGLYCERIDESon 03-22-2021 Triglyceride [Mass/Vol] 143 mg/dL Normal <151 [facility] Comment on above: Performed By: #### C H8, HEPATIC, MG, PHOS, TRIG ####[facility] PATH[facility] [id number] [place], BASIC METABOLIC PANELon 03-04 Anion gap [Moles/Vol] 15 mmol/L Normal 10-20 [facility] Comment on above: Performed By: #### C H8, PHOS, HEPATIC, MG, TRIG ####[facility] PATHOLOGY [id number] [place], Calcium [Mass/Vol] 8.3 mg/dL Low 8.4-10.4 [facility] Comment on above: Performed By: #### C H8, PHOS, HEPATIC, MG, TRIG ####[facility] PATHOLOGY [id number] [place], Chloride [Moles/Vol] 102 mmol/L Normal 97-111 [facility] Comment on above: Performed By: #### C H8, PHOS, HEPATIC, MG, TRIG ####[facility] PATHOLOGY [id number] [place], CO2 [Moles/Vol] 27 mmol/L Normal 21-30 [facility] Comment on above: Performed By: #### C H8, PHOS, HEPATIC, MG, TRIG ####[facility] PATHOLOGY [id number] [place], Creatinine [Mass/Vol] 1.11 mg/dL Normal 0.80-1.30 [facility] Comment on above: Performed By: #### C H8, PHOS, HEPATIC, MG, TRIG ####[facility] PATHOLOGY [id number] [place] [address], ESTIMATED GFR (CKD-EPI) 65 mL/min/1.73sqm Normal >=60 [facility] Comment on above: Performed By: #### C H8, PHOS, HEPATIC, MG, TRIG ####[facility] PATHOLOGY [id number] [place], Glucose [Mass/Vol] 238 mg/dL High 80-116 [facility] Comment on above: Performed By: #### C H8, PHOS, HEPATIC, MG, TRIG ####[facility] PATHOLOGY [id number] [place], Potassium [Moles/Vol] 3.5 mmol/L Normal 3.3-5.3 [facility] Comment on above: Performed By: #### C H8, PHOS, HEPATIC, MG, TRIG ####[facility] PATHOLOGY [id number] [place], Sodium [Moles/Vol] 140 mmol/L Normal 135-148 [facility] Comment on above: Performed By: #### C H8, PHOS, HEPATIC, MG, TRIG ####S PATHOLOGY [id number] [place], Urea nitrogen [Mass/Vol] 28 mg/dL High 01-23 [facility] Comment on above: Performed By: #### C H8, PHOS, HEPATIC, MG, TRIG ####[facility] PATHOLOGY [id number] [place], CBC WITH DIFFERENTIALon 03-04 Basophils (Bld) [#/Vol] 0.08 10*3/uL Normal 0.00-0.20 [facility] Comment on above: Performed By: #### C BCDSAT ####[facility] PATHOLOGY [id number] [place] [address], Basophils/100 WBC (Bld) 0.5 % Normal <=1.9 [facility] Comment on above: Performed By: #### Deborah GAMEZAT ####[facility] PATHOLOGY [id number] [place] [address], Eosinophils (Bld) [#/Vol] 0.47 10*3/uL Normal 0.00-0.70 [facility] Comment on above: Performed By: #### Deborah GAMEZAT ####[facility] PATHOLOGY [id number] [place] [address], Eosinophils/100 WBC (Bld) 3.1 % Normal 0.1-4.0 [facility] Comment on above: Performed By: #### Deborah GRUBBSDSAT ####S PATHOLOGY [id number] [place] [address], Erythrocyte distribution width (RBC) [Ratio] 14.0 % Normal 11.5-14.5 [facility] Comment on above: Performed By: #### Deborah BCMARIAMAAT ####S PATHOLOGY [id number] [place] [address], Hematocrit (Bld) [Volume fraction] 33.7 % Low 41.0-53.0 [facility] Comment on above: Performed By: #### Deborah GAMEZAT ####[facility] PATHOLOGY [id number] [place] [address], Hemoglobin (Bld) [Mass/Vol] 11.0 g/dL Low 13.9-16.3 [facility] Comment on above: Performed By: #### C BCDSAT ####[facility] PATHOLOGY [id number] [place] [address], Lymphocytes (Bld) [#/Vol] 1.19 10*3/uL Normal 1.00-4.80 [facility] Comment on above: Performed By: #### C BCDSAT ####[facility] PATHOLOGY [id number] [place] [address], Lymphocytes/100 WBC (Bld) 7.9 % Low 24.0-44.0 [facility] Comment on above: Performed By: #### C BCDSAT ####[facility] PATHOLOGY [id number] [place] [address], MCH (RBC) [Entitic mass] 30.5 pg Normal 26.0-34.0 [facility] Comment on above: Performed By: #### C BCDSAT ####[facility] PATHOLOGY [id number] [place] [address], MCHC (RBC) [Mass/Vol] 32.7 g/dL Normal 32.0-35.9 [facility] Comment on above: Performed By: #### C BCDSAT ####[facility] PATHOLOGY [id number] [place] [address], MCV (RBC) [Entitic vol] 93 fL Normal 80-100 [facility] Comment on above: Performed By: #### C BCDSAT ####[facility] PATHOLOGY [id number] [place] [address], MONOCYTE DISTRIBUTION WIDTH Normal [facility] Comment on above: Performed By: #### C BCDSAT ####[facility] PATHOLOGY [id number] [place] [address], Monocytes (Bld) [#/Vol] 1.98 10*3/uL High 0.20-1.00 [facility] Comment on above: Performed By: #### Deborah BCDSAT ####[facility] PATHOLOGY [id number] [place], Monocytes/100 WBC (Bld) 13.3 % High 2.0-11.0 [facility] Comment on above: Performed By: #### Deborah GAMEZAT ####[facility] PATHOLOGY [id number] [place], Neutrophils (Bld) [#/Vol] 11.25 10*3/uL High 1.50-8.00 [facility] Comment on above: Performed By: #### Deborha GAMEZAT ####[facility] PATHOLOGY [id number] [place], Neutrophils/100 WBC (Bld) 75.2 % Normal 31.0-76.0 [facility] Comment on above: Performed By: #### Deborah GAMEZAT ####[facility] PATHOLOGY [id number] [place], Platelet mean volume (Bld) [Entitic vol] 9.8 fL Normal 7.5-11.2 [facility] Comment on above: Performed By: #### Deborah GAMEZAT ####[facility] PATHOLOGY [id number] [place], Platelets (Bld) [#/Vol] 172 10*3/uL Normal 150-400 [facility] Comment on above: Performed By: #### Deborah GAMEZAT ####[facility] PATHOLOGY [id number] [place], RBC (Bld) [#/Vol] 3.62 10*6/uL Low 4.50-5.90 [facility] Comment on above: Performed By: #### C VERAAT ####[facility] PATHOLOGY [id number] [place], WBC (Bld) [#/Vol] 15.0 10*3/uL High 4.5-11.5 [facility] Comment on above: Performed By: #### Deborah GAMEZAT ####S PATHOLOGY [id number] [place], Care Plan Noteon 03-21-2021 [employer] Authentication Interface Message Text Normal [facility] Consultson 03-21-2021 [employer] Authentication Interface Message Text Normal [facility] GLUCOSE, FINGERSTICK-IN OFFI CEon 03-21-2021 Glucose [Mass/Vol] 164 mg/dL High 80-116 [facility] Comment on above: Result Comment: Salvador jovel RN, APN, MD Performed By: #### 8 2948 ####NURSING GLUCOSE [id number] [place], [address] Glucose [Mass/Vol] 192 mg/dL High 80-116 [facility] Comment on above: Result Comment: Salvaodr ojvel RN, APN, MD Performed By: #### 8 7888 ####NURSING GLUCOSE [id number] [place], [address] Glucose [Mass/Vol] 201 mg/dL High 80-116 [facility] Comment on above: Result Comment: Salvador jovel RN, APN, MD Performed By: #### 8 5998 ####NURSING GLUCOSE [id number] [place], [address] Glucose [Mass/Vol] 230 mg/dL High 80-116 [facility] Comment on above: Performed By: #### 8 4128 ####NURSING GLUCOSE [id number] [place], [address] HEPATIC FUNCTION PANELon Albumin [Mass/Vol] 2.7 g/dL Low 3.4-5.1 [facility] Comment on above: Performed By: #### C H8, PHOS, HEPATIC, MG, TRIG ####[facility] PATHOLOGY [id number] [place], ALK 62 IU/L Normal 40-200 [facility] Comment on above: Performed By: #### C H8, PHOS, HEPATIC, MG, TRIG ####[facility] PATHOLOGY [id number] [place], ALT [Catalytic activity/Vol] 53 U/L High 7-40 [facility] Comment on above: Performed By: #### C H8, PHOS, HEPATIC, MG, TRIG ####[facility] PATHOLOGY [id number] [place], AST [Catalytic activity/Vol] 42 U/L High 7-40 [facility] Comment on above: Performed By: #### C H8, PHOS, HEPATIC, MG, TRIG ####S PATHOLOGY [id number] [place], Bilirubin [Mass/Vol] 1.3 mg/dL Normal 0.1-1.5 [facility] Comment on above: Performed By: #### C H8, PHOS, HEPATIC, MG, TRIG ####S PATHOLOGY [id number] [place], Bilirubin.direct [Mass/Vol] 0.50 mg/dL High 0.10-0.30 [facility] Comment on above: Performed By: #### C H8, PHOS, HEPATIC, MG, TRIG ####S PATHOLOGY [id number] [place], Protein [Mass/Vol] 5.9 g/dL Normal 5.7-8.1 [facility] Comment on above: Performed By: #### C H8, PHOS, HEPATIC, MG, TRIG ####S PATHOLOGY [id number] [place], MAGNESIUMon 03-21-2021 Magnesium [Mass/Vol] 2.1 mg/dL Normal 1.6-2.8 [facility] Comment on above: Performed By: #### C H8, PHOS, HEPATIC, MG, TRIG ####S PATHOLOGY [id number] [place], Multidisciplinary Noteon [employer] Authentication Interface Message Text Normal [facility] PARTIAL THROMBOPLASTIN TIMEo n 03-21-2021 aPTT Coag (Bld) [Time] 81 s High 25-37 Th e [facility] Comment on above: Performed By: #### A PTT ####S PATHOLOGY [id number] [place] [address], PHOSPHORUSon 03-21-2021 Phosphate [Mass/Vol] 2.9 mg/dL Normal 2.3-4.2 [facility] Comment on above: Performed By: #### C H8, PHOS, HEPATIC, MG, TRIG ####S PATHOLOGY [id number] [place], Progress Noteson 03-21-2021 [employer] Authentication Interface Message Text Normal [facility] [employer] Authentication Interface Message Text Normal [facility] [employer] Authentication Interface Message Text Normal [facility] [employer] Authentication Interface Message Text Normal [facility] TRIGLYCERIDESon 03-21-2021 Triglyceride [Mass/Vol] 131 mg/dL Normal <151 [facility] Comment on above: Performed By: #### C H8, PHOS, HEPATIC, MG, TRIG ####[facility] PATHOLOGY [id number] [place], 1:1 Interactionon 03-20-2021 [employer] Authentication Interface Message Text Normal [facility] BASIC METABOLIC PANELon 03-04 Anion gap [Moles/Vol] 15 mmol/L Normal 10-20 [facility] Comment on above: Performed By: #### C H8, MG, PHOS ####[facility] PATHOLOGY [id number] [place], Calcium [Mass/Vol] 8.3 mg/dL Low 8.4-10.4 [facility] Comment on above: Performed By: #### C H8, MG, PHOS ####[facility] PATHOLOGY [id number] [place], Chloride [Moles/Vol] 101 mmol/L Normal 97-111 [facility] Comment on above: Performed By: #### C H8, MG, PHOS ####[facility] PATHOLOGY [id number] [place], CO2 [Moles/Vol] 27 mmol/L Normal 21-30 [facility] Comment on above: Performed By: #### C H8, MG, PHOS ####[facility] PATHOLOGY [id number] [place], Creatinine [Mass/Vol] 1.09 mg/dL Normal 0.80-1.30 [facility] Comment on above: Performed By: #### C H8, MG, PHOS ####[facility] PATHOLOGY [id number] [place], ESTIMATED GFR (CKD-EPI) 66 mL/min/1.73sqm Normal >=60 [facility] Comment on above: Performed By: ###MG Naidu PHOS ####[facility] PATHOLOGY [id number] [place], Glucose [Mass/Vol] 369 mg/dL High 80-116 [facility] Comment on above: Performed By: #### MG Méndez PHOS ####[facility] PATHOLOGY [id number] [place], Potassium [Moles/Vol] 3.9 mmol/L Normal 3.3-5.3 [facility] Comment on above: Performed By: ###MG Naidu PHOS ####S PATHOLOGY [id number] [place], Sodium [Moles/Vol] 139 mmol/L Normal 135-148 [facility] Comment on above: Performed By: ###MG Naidu PHOS ####[facility] PATHOLOGY [id number] [place], Urea nitrogen [Mass/Vol] 27 mg/dL High 8-22 [facility] Comment on above: Performed By: ###MG Naidu PHOS ####[facility] PATHOLOGY [id number] [place], Anion gap [Moles/Vol] 14 mmol/L Normal 10-20 [facility] Comment on above: Performed By: #### Deborah Jeronimo ####[facility] PATHOLOGY [id number] [place], Calcium [Mass/Vol] 7.8 mg/dL Low 8.4-10.4 [facility] Comment on above: Performed By: #### Deborah Jeronimo ####[facility] PATHOLOGY [id number] [place], Chloride [Moles/Vol] 101 mmol/L Normal 97-111 [facility] Comment on above: Performed By: #### Deborah Jeronimo ####[facility] PATHOLOGY [id number] [place], CO2 [Moles/Vol] 27 mmol/L Normal 21-30 [facility] Comment on above: Performed By: #### C H8 ####[facility] PATHOLOGY [id number] [place], Creatinine [Mass/Vol] 1.22 mg/dL Normal 0.80-1.30 [facility] Comment on above: Performed By: #### C H8 ####[facility] PATHOLOGY [id number] [place], ESTIMATED GFR (CKD-EPI) 58 mL/min/1.73sqm Low >=60 [facility] Comment on above: Performed By: #### C H8 ####[facility] PATHOLOGY [id number] [place] [address], Glucose [Mass/Vol] 411 mg/dL High 80-116 [facility] Comment on above: Performed By: #### C H8 ####[facility] PATHOLOGY [id number] [place], Potassium [Moles/Vol] 3.1 mmol/L Low 3.3-5.3 [facility] Comment on above: Performed By: #### C H8 ####[facility] PATHOLOGY [id number] [place] [address], Sodium [Moles/Vol] 139 mmol/L Normal 135-148 [facility] Comment on above: Performed By: #### C H8 ####[facility] PATHOLOGY [id number] [place], Urea nitrogen [Mass/Vol] 26 mg/dL High 8-22 [facility] Comment on above: Performed By: #### C H8 ####[facility] PATHOLOGY [id number] [place], CBC WITH DIFFERENTIALon 03-04 Basophils (Bld) [#/Vol] 0.07 10*3/uL Normal 0.00-0.20 [facility] Comment on above: Performed By: #### C BCDSAT ####[facility] PATHOLOGY [id number] [place], Basophils/100 WBC (Bld) 0.5 % Normal <=1.9 [facility] Comment on above: Performed By: #### C BCDSAT ####[facility] PATHOLOGY [id number] [place], Eosinophils (Bld) [#/Vol] 0.10 10*3/uL Normal 0.00-0.70 [facility] Comment on above: Performed By: #### C BCDSAT ####[facility] PATHOLOGY [id number] [place] [address], Eosinophils/100 WBC (Bld) 0.7 % Normal 0.1-4.0 [facility] Comment on above: Performed By: #### C BCDSAT ####[facility] PATHOLOGY [id number] [place] [address], Erythrocyte distribution width (RBC) [Ratio] 13.9 % Normal 11.5-14.5 [facility] Comment on above: Performed By: #### C BCDSAT ####[facility] PATHOLOGY [id number] [place] [address], Hematocrit (Bld) [Volume fraction] 34.3 % Low 41.0-53.0 [facility] Comment on above: Performed By: #### C BCDSAT ####[facility] PATHOLOGY [id number] [place] [address], Hemoglobin (Bld) [Mass/Vol] 11.4 g/dL Low 13.9-16.3 [facility] Comment on above: Performed By: #### C BCDSAT ####[facility] PATHOLOGY [id number] [place] [address], Lymphocytes (Bld) [#/Vol] 0.82 10*3/uL Low 1.00-4.80 [facility] Comment on above: Performed By: #### C BCDSAT ####[facility] PATHOLOGY [id number] [place] [address], Lymphocytes/100 WBC (Bld) 5.9 % Low 24.0-44.0 [facility] Comment on above: Performed By: #### C BCDSAT ####[facility] PATHOLOGY [id number] [place], MCH (RBC) [Entitic mass] 30.9 pg Normal 26.0-34.0 [facility] Comment on above: Performed By: #### Deborah GAMEZAT ####[facility] PATHOLOGY [id number] [place], MCHC (RBC) [Mass/Vol] 33.4 g/dL Normal 32.0-35.9 [facility] Comment on above: Performed By: #### Deborah GAMEZAT ####[facility] PATHOLOGY [id number] [place], MCV (RBC) [Entitic vol] 93 fL Normal 80-100 [facility] Comment on above: Performed By: #### Deborah GAMEZAT ####[facility] PATHOLOGY [id number] [place] [address], MONOCYTE DISTRIBUTION WIDTH Normal [facility] Comment on above: Performed By: #### Deborah GAMEZAT ####[facility] PATHOLOGY [id number] [place] [address], Monocytes (Bld) [#/Vol] 1.55 10*3/uL High 0.20-1.00 [facility] Comment on above: Performed By: #### Deborah GAMEZAT ####[facility] PATHOLOGY [id number] [place] [address], Monocytes/100 WBC (Bld) 11.2 % High 2.0-11.0 [facility] Comment on above: Performed By: #### Deborah GAMEZAT ####[facility] PATHOLOGY [id number] [place] [address], Neutrophils (Bld) [#/Vol] 11.38 10*3/uL High 1.50-8.00 [facility] Comment on above: Performed By: #### C VERAAT ####[facility] PATHOLOGY [id number] [place] [address], Neutrophils/100 WBC (Bld) 81.8 % High 31.0-76.0 [facility] Comment on above: Performed By: #### Deborah GAMEZAT ####[facility] PATH[facility] [id number] [place], Platelet mean volume (Bld) [Entitic vol] 9.7 fL Normal 7.5-11.2 [facility] Comment on above: Performed By: #### C BCDSAT ####S PATHOLOGY [id number] [place], Platelets (Bld) [#/Vol] 171 10*3/uL Normal 150-400 [facility] Comment on above: Performed By: #### C VERAAT ####[facility] PATHOLOGY [id number] [place], RBC (Bld) [#/Vol] 3.70 10*6/uL Low 4.50-5.90 [facility] Comment on above: Performed By: #### C VERAAT ####[facility] PATHOLOGY [id number] [place], WBC (Bld) [#/Vol] 13.9 10*3/uL High 4.5-11.5 [facility] Comment on above: Performed By: #### C VERAAT ####[facility] PATHOLOGY [id number] [place], Care Plan Noteon 03-20-2021 [employer] Authentication Interface Message Text Normal [facility] GLUCOSE, FINGERSTICK-IN OFFI CEon 03-20-2021 Glucose [Mass/Vol] 271 mg/dL High 80-116 [facility] Comment on above: Result Comment: Salvador jovel RN, APN, MD Performed By: #### 8 3429 ####NURSING GLUCOSE [id number] [place], [address] Glucose [Mass/Vol] 296 mg/dL High 80-116 [facility] Comment on above: Result Comment: Salvador jovel RN, APN, MD Performed By: #### 8 7822 ####NURSING GLUCOSE [id number] [place], [address] Glucose [Mass/Vol] 328 mg/dL High 80-116 [facility] Comment on above: Result Comment: Foll ow Protocol Performed By: #### 8 9983 ####NURSING GLUCOSE [id number] [place], [address] Glucose [Mass/Vol] 363 mg/dL High 80-116 [facility] Comment on above: Performed By: #### 8 2948 ####NURSING GLUCOSE [id number] [place], [address] Glucose [Mass/Vol] 368 mg/dL High 80-116 [facility] Comment on above: Result Comment: Foll ow Protocol Performed By: #### 8 2948 ####NURSING GLUCOSE [id number] [place], [address] MAGNESIUMon 03-20-2021 Magnesium [Mass/Vol] 2.5 mg/dL Normal 1.6-2.8 [facility] Comment on above: Performed By: #### MG Méndez PHOS ####[facility] [id number] [place], Multidisciplinary Noteon [employer] Authentication Interface Message Text Normal [facility] PARTIAL THROMBOPLASTIN TIMEo n 03-20-2021 aPTT Coag (Bld) [Time] 86 s High 25-37 Th [facility] Comment on above: Performed By: #### A PTT ####[facility] [id number] [place], aPTT Coag (Bld) [Time] 103 s Critically high 25-37 [facility] Comment on above: Performed By: #### A PTT ####[facility] PATH[facility] [id number] [place], aPTT Coag (Bld) [Time] 32 s Normal 25-37 [facility] Comment on above: Performed By: #### A PTT ####[facility] PATH[facility] [id number] [place], PHOSPHORUSon 03-20-2021 Phosphate [Mass/Vol] 2.5 mg/dL Normal 2.3-4.2 [facility] Comment on above: Performed By: #### C MG Jeronimo PHOS ####[facility] PATH[facility] [id number] [place], Progress Noteson 03-20-2021 [employer] Authentication Interface Message Text Normal [facility] [employer] Authentication Interface Message Text Normal [facility] 1:1 Interactionon 03-19-2021 [employer] Authentication Interface Message Text Normal [facility] BASIC METABOLIC PANELon 03-04 Anion gap [Moles/Vol] 24 mmol/L High 10-20 [facility] Comment on above: Performed By: #### Deborah Jeronimo MG, PHOS ####[facility] [id number] [place], Calcium [Mass/Vol] 7.8 mg/dL Low 8.4-10.4 [facility] Comment on above: Performed By: #### Deborah Jeronimo MG, PHOS ####[facility] [id number] [place], Chloride [Moles/Vol] 101 mmol/L Normal 97-111 [facility] Comment on above: Performed By: #### Deborah Jeronimo MG, PHOS ####[facility] [id number] [place], CO2 [Moles/Vol] 19 mmol/L Low 21-30 [facility] Comment on above: Performed By: #### Deborah Jeronimo MG, PHOS ####[facility] [id number] [place], Creatinine [Mass/Vol] 1.05 mg/dL Normal 0.80-1.30 [facility] Comment on above: Performed By: #### Deborah Jeronimo MG, PHOS ####[facility] [id number] [place], ESTIMATED GFR (CKD-EPI) 69 mL/min/1.73sqm Normal >=60 [facility] Comment on above: Performed By: #### Deborah HClementina MG, PHOS ####[facility] [id number] [place], Glucose [Mass/Vol] 370 mg/dL High 80-116 [facility] Comment on above: Performed By: #### Deborah H8 MG, PHOS ####[facility] [id number] [place], Potassium [Moles/Vol] 7.8 mmol/L Critically high 3.3-5.3 [facility] Comment on above: Result Comment: Hemo lysis present Performed By: #### MG Méndez PHOS ####[facility] [id number] [place], Sodium [Moles/Vol] 136 mmol/L Normal 135-148 [facility] Comment on above: Performed By: #### MG Dev PHOS ####[facility] CYZSGLJOOG7648 [place], Urea nitrogen [Mass/Vol] 25 mg/dL High 8-22 [facility] Comment on above: Performed By: #### MG Méndez PHOS ####[facility] [id number] [place], Anion gap [Moles/Vol] 17 mmol/L Normal 10-20 [facility] Comment on above: Performed By: #### MG Dev PHOS ####[facility] JEZNREURIQ7268 [place], Calcium [Mass/Vol] 8.6 mg/dL Normal 8.4-10.4 [facility] Comment on above: Performed By: #### MG Dev PHOS ####[facility] KUMPQFZRRU4257 [place], Chloride [Moles/Vol] 99 mmol/L Normal 97-111 [facility] Comment on above: Performed By: #### MG Dev PHOS ####[facility] YKEHQLOIUQ5118 [place], CO2 [Moles/Vol] 25 mmol/L Normal 21-30 [facility] Comment on above: Performed By: #### MG Dev, PHOS ####[facility] DTXWZRNJXF3156 [place], Creatinine [Mass/Vol] 1.09 mg/dL Normal 0.80-1.30 [facility] Comment on above: Performed By: #### MG Dev PHOS ####[facility] [id number] [place], ESTIMATED GFR (CKD-EPI) 66 mL/min/1.73sqm Normal >=60 [facility] Comment on above: Performed By: #### MG Dev, PHOS ####[facility] [id number] [place], Glucose [Mass/Vol] 378 mg/dL High 80-116 [facility] Comment on above: Performed By: #### MG Dev, PHOS ####[facility] XOPXCJFTNV5761 [place], Potassium [Moles/Vol] 4.1 mmol/L Normal 3.3-5.3 [facility] Comment on above: Performed By: #### MG Dev, PHOS ####[facility] [id number] [place], Sodium [Moles/Vol] 137 mmol/L Normal 135-148 [facility] Comment on above: Performed By: #### MG Dev, PHOS ####[facility] [id number] [place], Urea nitrogen [Mass/Vol] 17 mg/dL Normal 8-22 [facility] Comment on above: Performed By: #### MG Dev, BRIDGETTS ####[facility] YYARDWITWY9300 [place], BLOOD CULTUREon 03-19-2021 Bacteria identified Cx Nom (Bld) C BLOOD: No Growth Normal [facility] Comment on above: Performed By: #### C BLOOD ####[facility] Tjqeupyaz1422 [place], [place] BLOOD GAS, ARTERIALon 2020 CR BARI 3.6 mmol/L High -2.0-2.0 [facility] Comment on above: Performed By: #### C R BGA ####[facility] [id number] [place], CR PCO2 35.0 mm Hg Normal 35.0-45.0 [facility] Comment on above: Performed By: #### C R BGA ####[facility] PATHOLOGY [id number] [place], CR PHA 7.490 High 7.35-7.45 [facility] Comment on above: Performed By: #### C R BGA ####[facility] PATHOLOGY [id number] [place], CR PO2 82 mm Hg Normal 80-100 [facility] Comment on above: Performed By: #### C R BGA ####[facility] PATHOLOGY CLRNIRGCDS[address] [place] [address], FIO2 (CATEGORY) 5 LPM Normal [facility] Comment on above: Performed By: #### C R BGA ####[facility] PATHOLOGY [id number] [place] [address], HCO3 (Bld) [Moles/Vol] 26 mmol/L Normal 22-28 [facility] Comment on above: Performed By: #### C R BGA ####[facility] PATHOLOGY RUZCYLCTWS6980[address] [place] [address], MODE Nasal Canula Normal [facility] Comment on above: Performed By: #### C R BGA ####[facility] PATHOLOGY [id number] [place] [address], Oxygen saturation in Blood 96.9 % Normal >=95.1 [facility] Comment on above: Performed By: #### C R BGA ####[facility] PATHOLOGY QKZNPZUSFM79[address] [place] [address], CR BARI 3.9 mmol/L High -2.0-2.0 [facility] Comment on above: Performed By: #### C R BGA ####[facility] PATHOLOGY XICXOQBYMD[address] [place] [address], CR PCO2 32.4 mm Hg Low 35.0-45.0 [facility] Comment on above: Performed By: #### C R BGA ####[facility] PATHOLOGY Q[address]VWSCKTTA0[address] [place] [address], CR PHA 7.516 High 7.35-7.45 [facility] Comment on above: Performed By: #### C R BGA ####[facility] PATHOLOGY [id number] [place], CR PO2 72 mm Hg Low 80-100 [facility] Comment on above: Performed By: #### C R BGA ####[facility] PATHOLOGY [id number] [place], FIO2 (CATEGORY) 5 LPM Normal [facility] Comment on above: Performed By: #### C R BGA ####[facility] PATHOLOGY [id number] [place], HCO3 (Bld) [Moles/Vol] 26 mmol/L Normal 22-28 [facility] Comment on above: Performed By: #### C R BGA ####[facility] PATHOLOGY [id number] [place], MODE Nasal Canula Normal [facility] Comment on above: Performed By: #### Deborah R BGA ####[facility] PATHOLOGY [id number] [place] [address], Oxygen saturation in Blood 95.5 % Normal >=95.1 [facility] Comment on above: Performed By: #### C R BGA ####[facility] PATHOLOGY UNTUAJVFOH12[address] [place] [address], CBC WITH DIFFERENTIALon 03-04 Erythrocyte distribution width (RBC) [Ratio] 14.0 % Normal 11.5-14.5 [facility] Comment on above: Performed By: #### M DIFF, CBCDSAT ####[facility] PATHOLOGY [id number] [place], Hematocrit (Bld) [Volume fraction] 39.2 % Low 41.0-53.0 [facility] Comment on above: Performed By: #### M DIFF, CBCDSAT ####[facility] PATHOLOGY FGAMCWJGWU2416 [place], Hemoglobin (Bld) [Mass/Vol] 12.8 g/dL Low 13.9-16.3 [facility] Comment on above: Performed By: #### M DIFF, CBCDSAT ####[facility] PATHOLOGY [id number] [place], MCH (RBC) [Entitic mass] 30.2 pg Normal 26.0-34.0 [facility] Comment on above: Performed By: #### M DIFF, CBCDSAT ####[facility] PATHOLOGY [id number] [place], MCHC (RBC) [Mass/Vol] 32.6 g/dL Normal 32.0-35.9 [facility] Comment on above: Performed By: #### M DIFF, CBCDSAT ####[facility] PATHOLOGY [id number] [place], MCV (RBC) [Entitic vol] 93 fL Normal 80-100 [facility] Comment on above: Performed By: #### M DIFF, CBCDSAT ####[facility] PATHOLOGY [id number] [place], MONOCYTE DISTRIBUTION WIDTH Normal [facility] Comment on above: Performed By: #### M DIFF, CBCDSAT ####[facility] PATHOLOGY [id number] [place], Platelet mean volume (Bld) [Entitic vol] 9.1 fL Normal 7.5-11.2 [facility] Comment on above: Performed By: #### M DIFF, CBCDSAT ####[facility] PATHOLOGY [id number] [place], Platelets (Bld) [#/Vol] 211 10*3/uL Normal 150-400 [facility] Comment on above: Performed By: #### M DIFF, CBCDSAT ####[facility] PATHOLOGY [id number] [place], RBC (Bld) [#/Vol] 4.24 10*6/uL Low 4.50-5.90 [facility] Comment on above: Performed By: #### M DIFF, CBCDSAT ####[facility] PATHOLOGY [id number] [place], WBC (Bld) [#/Vol] 22.0 10*3/uL High 4.5-11.5 [facility] Comment on above: Performed By: #### M DIFF, CBCDSAT ####[facility] TRODQZICWR2316 [place], CT CHEST W/ CONTRASTon 03-19 CT CHEST W/ CONTRAST Normal [facility] HEAD W/O CONTRASTon 03-19 CT HEAD W/O CONTRAST Normal [facility] Care Plan Noteon 03-19-2021 [employer] Authentication Interface Message Text Normal [facility] Consultson 03-19-2021 [employer] Authentication Interface Message Text Normal [facility] GLUCOSE, FINGERSTICK-IN OFFI CEon 03-19-2021 Glucose [Mass/Vol] 330 mg/dL High 80-116 [facility] Comment on above: Result Comment: Salvador jovel RN, APN, MD Performed By: #### 8 2948 ####NURSING GLUCOSE [id number] [place], [address] Glucose [Mass/Vol] 316 mg/dL High 80-116 [facility] Comment on above: Result Comment: Foll ow Protocol Performed By: #### 8 2948 ####NURSING GLUCOSE [id number] [place], [address] Glucose [Mass/Vol] 282 mg/dL High 80-116 [facility] Comment on above: Result Comment: Salvador jovel RN, APN, MD Performed By: #### 8 2948 ####NURSING GLUCOSE [id number] [place], [address] HEPATIC FUNCTION PANELon Albumin [Mass/Vol] 2.8 g/dL Low 3.4-5.1 [facility] Comment on above: Performed By: #### H EDUAR TRIG ####[facility] [id number] [place], ALK 63 IU/L Normal 40-200 [facility] Comment on above: Performed By: #### H EDUAR TRIG ####[facility] [id number] [place], ALT [Catalytic activity/Vol] 44 U/L High 7-40 [facility] Comment on above: Performed By: #### H EDUAR TRIG ####[facility] [id number] [place], AST [Catalytic activity/Vol] 55 U/L High 7-40 [facility] Comment on above: Result Comment: Hemo lysis present Performed By: #### H EPAJORGE ALBERTO, TRIG ####S PATHOLOGY HVMGIWDLCZ0997 [place], Bilirubin [Mass/Vol] 2.1 mg/dL High 0.1-1.5 [facility] Comment on above: Performed By: #### H EPATIC, TRIG ####S PATHOLOGY [id number] [place], Bilirubin.direct [Mass/Vol] 0.60 mg/dL High 0.10-0.30 [facility] Comment on above: Performed By: #### H EDUAR, TRIG ####[facility] PATHOLOGY LRAWRPMKKN[address] [place] [address], Protein [Mass/Vol] 5.8 g/dL Normal 5.7-8.1 [facility] Comment on above: Performed By: #### H EPAJORGE ALBERTO, TRIG ####[facility] PATHOLOGY [id number] [place] [address], MAGNESIUMon 03-19-2021 Magnesium [Mass/Vol] 2.3 mg/dL Normal 1.6-2.8 [facility] Comment on above: Result Comment: Hemo lysis present Performed By: #### C H8, MG, PHOS ####S PATHOLOGY [id number] [place], Magnesium [Mass/Vol] 1.6 mg/dL Normal 1.6-2.8 [facility] Comment on above: Performed By: #### C H8, MG, PHOS ####S PATHOLOGY [id number] [place], MANUAL DIFF AND MORPHon 03-04 CELLS COUNTED TOTAL # IN BLOOD 100 Normal [facility] Comment on above: Performed By: #### M DIFF, CBCDSAT ####S PATHOLOGY [id number] [place], MONOCYTES % BY MANUAL COUNT 8.0 % Normal 2.0-11.0 [facility] Comment on above: Performed By: #### M DIFF, CBCDSAT ####[facility] PATHOLOGY DIBIUDMSKP99[address] [place] [address], MONOCYTES ABS BY MANUAL COUNT 1.76 K/uL High 0.20-1.00 [facility] Comment on above: Performed By: #### M DIFF, CBCDSAT ####[facility] PATHOLOGY [id number] [place] [address], NEUTROPHILS % BY MANUAL COUNT 92.0 % High 31.0-76.0 [facility] Comment on above: Performed By: #### M DIFF, CBCDSAT ####[facility] PATHOLOGY [id number] [place] [address], NEUTROPHILS ABS BY MANUAL COUNT 20.24 K/uL High 1.50-8.00 [facility] Comment on above: Performed By: #### M DIFF, CBCDSAT ####[facility] PATHOLOGY REYPYZHJTN[address] [place] [address], POLYCHROMASIA Slight Normal [facility] Comment on above: Performed By: #### M DIFF, CBCDSAT ####[facility] PATHOLOGY OXLYRWIPSI5[address] [place] [address], MRSA SCREENon 03-19-2021 MRSA DNA MICHELLE+probe Ql (Unsp spec) CMR: No methicillin resistant Staphylococcus aureus isolated. Normal No methicillin resistant Staphylococcus aureus isolated. [facility] Comment on above: Performed By: #### C MR ####[facility] Owffdxqcy[address] [place], [place] [address] PARTIAL THROMBOPLASTIN TIMEo n 03-19-2021 aPTT Coag (Bld) [Time] 64 s High 25-37 Th e [facility] Comment on above: Performed By: #### A PTT ####[facility] PATHOLOGY YAGRSBZRJA38[address] [place] [address], aPTT Coag (Bld) [Time] 36 s Normal 25-37 Th e [facility] Comment on above: Performed By: #### A PTT ####[facility] PATHOLOGY [id number] [place] [address], PHOSPHORUSon 03-19-2021 Phosphate [Mass/Vol] 2.2 mg/dL Low 2.3-4.2 [facility] Comment on above: Performed By: #### C H8, MG, PHOS ####[facility] [id number] [place], Phosphate [Mass/Vol] 1.5 mg/dL Low 2.3-4.2 [facility] Comment on above: Performed By: #### C H8, MG, PHOS ####[facility] [id number] [place], Procedureson 03-19-2021 [employer] Authentication Interface Message Text Normal [facility] Progress Noteson 03-19-2021 [employer] Authentication Interface Message Text Dr Rebollar notified of critical Potassium of 7.8 hemolyzed, read back result. Will continue to monitor. Normal [facility] [employer] Interface Message Text Normal [facility] RESPIRATORY CULTURE, MISCon 03-19-2021 RESPIRATORY CULTURE, MISC Normal [facility] Comment on above: Performed By: #### C RESP ####[facility] Efpnpaqxz4649 [place], [place] TRIGLYCERIDESon 03-19-2021 Triglyceride [Mass/Vol] 161 mg/dL High <151 [facility] Comment on above: Performed By: #### H EPATIC, TRIG ####[facility] [id number] [place], XR CHEST 1 VIEW AP OR PAon XR CHEST 1 VIEW AP OR PA Normal [facility] BASIC METABOLIC PANELon 03-04 Anion gap [Moles/Vol] 16 mmol/L Normal 10-20 [facility] Comment on above: Performed By: #### P HOS, MG, CH8 ####[facility] UZPENTCEDS8033 [place], Calcium [Mass/Vol] 8.6 mg/dL Normal 8.4-10.4 [facility] Comment on above: Performed By: #### P HOS, MG, CH8 ####[facility] YXXMJVVHQW0288 [place], Chloride [Moles/Vol] 103 mmol/L Normal 97-111 [facility] Comment on above: Performed By: #### P JOHN MG, CH8 ####[facility] [id number] [place], CO2 [Moles/Vol] 24 mmol/L Normal 21-30 [facility] Comment on above: Performed By: #### P JOHN MG, CH8 ####S PATHOLOGY UDMJEWIDJS3755 [place], Creatinine [Mass/Vol] 1.04 mg/dL Normal 0.80-1.30 [facility] Comment on above: Performed By: #### Martha LOPEZ MG, CH8 ####[facility] PDCSCZSVBP0668 [place], ESTIMATED GFR (CKD-EPI) 70 mL/min/1.73sqm Normal >=60 [facility] Comment on above: Performed By: #### Martha LOPEZ MG, CH8 ####S PATHOLOGY [id number] [place], Glucose [Mass/Vol] 214 mg/dL High 80-116 [facility] Comment on above: Performed By: #### Martha LOPEZ MG, CH8 ####S PATHOLOGY NJIGOHYMTY64[address] [place] [address], Potassium [Moles/Vol] 3.9 mmol/L Normal 3.3-5.3 [facility] Comment on above: Performed By: #### P JOHN MG, CH8 ####[facility] [id number] [place], Sodium [Moles/Vol] 139 mmol/L Normal 135-148 [facility] Comment on above: Performed By: #### P HOS MG, CH8 ####[facility] WKXCDFETAH247[address] [place] [address], Urea nitrogen [Mass/Vol] 10 mg/dL Normal 8-22 [facility] Comment on above: Performed By: #### P HOS MG, CH8 ####[facility] [id number] [place], CBC WITH DIFFERENTIALon 03-04 Erythrocyte distribution width (RBC) [Ratio] 13.8 % Normal 11.5-14.5 [facility] Comment on above: Performed By: #### M DIFF, CBCDSAT ####[facility] PATHOLOGY [id number] [place], Hematocrit (Bld) [Volume fraction] 38.3 % Low 41.0-53.0 [facility] Comment on above: Performed By: #### M DIFF, CBCDSAT ####[facility] PATHOLOGY QVPAPNIEQY3469 [place], Hemoglobin (Bld) [Mass/Vol] 12.7 g/dL Low 13.9-16.3 [facility] Comment on above: Performed By: #### M DIFF, CBCDSAT ####[facility] PATHOLOGY VCYHNZHUIN24[address] [place] [address], MCH (RBC) [Entitic mass] 30.6 pg Normal 26.0-34.0 [facility] Comment on above: Performed By: #### M DIFF, CBCDSAT ####[facility] PATHOLOGY [id number] [place], MCHC (RBC) [Mass/Vol] 33.3 g/dL Normal 32.0-35.9 [facility] Comment on above: Performed By: #### M DIFF, CBCDSAT ####[facility] PATHOLOGY [id number] [place], MCV (RBC) [Entitic vol] 92 fL Normal 80-100 [facility] Comment on above: Performed By: #### M DIFF, CBCDSAT ####[facility] PATHOLOGY HCTCZJSEHN8164 [place], MONOCYTE DISTRIBUTION WIDTH Normal [facility] Comment on above: Performed By: #### M DIFF, CBCDSAT ####[facility] PATHOLOGY [id number] [place], Platelet mean volume (Bld) [Entitic vol] 9.0 fL Normal 7.5-11.2 [facility] Comment on above: Performed By: #### M DIFF, CBCDSAT ####[facility] [id number] [place], Platelets (Bld) [#/Vol] 209 10*3/uL Normal 150-400 [facility] Comment on above: Performed By: #### M DIFF, CBCDSAT ####[facility] EZVTZAVEET3077 [place], RBC (Bld) [#/Vol] 4.17 10*6/uL Low 4.50-5.90 [facility] Comment on above: Performed By: #### M DIFF, CBCDSAT ####[facility] [id number] [place], WBC (Bld) [#/Vol] 16.9 10*3/uL High 4.5-11.5 [facility] Comment on above: Performed By: #### M DIFF, CBCDSAT ####[facility] [id number] [place], Care Plan Noteon 03-18-2021 [employer] Authentication Interface Message Text Normal [facility] GLUCOSE, FINGERSTICK-IN OFFI CEon 03-18-2021 Glucose [Mass/Vol] 234 mg/dL High 80-116 [facility] Comment on above: Performed By: #### 8 1108 ####NURSING GLUCOSE HKILJQU2910 [place], [address] Glucose [Mass/Vol] 216 mg/dL High 80-116 [facility] Comment on above: Result Comment: Salvador jovel RN, APN, MD Performed By: #### 8 2948 ####NURSING GLUCOSE YUWXTWB5130 [place], [address] Glucose [Mass/Vol] 197 mg/dL High 80-116 [facility] Comment on above: Result Comment: Salvador jovel RN, APN, MD Performed By: #### 8 2941 ####NURSING GLUCOSE TZKJAOA6518 [place], [address] Glucose [Mass/Vol] 200 mg/dL High 80-116 [facility] Comment on above: Result Comment: Salvador jovel RN, APN, MD Performed By: #### 8 2948 ####NURSING GLUCOSE SHQOOXQ9484 [place], [address] MAGNESIUMon 03-18-2021 Magnesium [Mass/Vol] 1.8 mg/dL Normal 1.6-2.8 [facility] Comment on above: Performed By: #### P HOS, MG, CH8 ####[facility] [id number] [place], MANUAL DIFF AND MORPHon 03-04 ANISOCYTOSIS Slight Normal [facility] Comment on above: Performed By: #### M DIFF, CBCDSAT ####S PATHOLOGY [id number] [place], CELLS COUNTED TOTAL # IN BLOOD 100 Normal [facility] Comment on above: Performed By: #### M DIFF, CBCDSAT ####S PATHOLOGY [id number] [place], LYMPHOCYTES % BY MANUAL COUNT 7.0 % Low 24.0-44.0 [facility] Comment on above: Performed By: #### M DIFF, CBCDSAT ####S PATHOLOGY IQCJAJTJML5575 [place], LYMPHOCYTES ABS BY MANUAL COUNT 1.18 K/uL Normal 1.00-4.80 [facility] Comment on above: Performed By: #### M DIFF, CBCDSAT ####S PATHOLOGY [id number] [place], MONOCYTES % BY MANUAL COUNT 11.0 % Normal 2.0-11.0 [facility] Comment on above: Performed By: #### M DIFF, CBCDSAT ####S PATHOLOGY GAOXVAMNXH5684 [place], MONOCYTES ABS BY MANUAL COUNT 1.86 K/uL High 0.20-1.00 [facility] Comment on above: Performed By: #### M DIFF, CBCDSAT ####[facility] [id number] [place], NEUTROPHILS % BY MANUAL COUNT 82.0 % High 31.0-76.0 [facility] Comment on above: Performed By: #### M DIFF, CBCDSAT ####S PATHOLOGY BSKLAWAWXY9872 [place], NEUTROPHILS ABS BY MANUAL COUNT 13.86 K/uL High 1.50-8.00 [facility] Comment on above: Performed By: #### M DIFF, CBCDSAT ####S PATHOLOGY [id number] [place], POLYCHROMASIA Slight Normal [facility] System Comment on above: Performed By: #### M DIFF, CBCDSAT ####S PATHOLOGY [id number] [place], PARTIAL THROMBOPLASTIN TIMEo n 03-18-2021 aPTT Coag (Bld) [Time] 60 s High 25-37 [facility] Comment on above: Performed By: #### A PTT ####[facility] [id number] [place], PHOSPHORUSon 03-18-2021 Phosphate [Mass/Vol] 1.5 mg/dL Low 2.3-4.2 [facility] Comment on above: Performed By: #### P HOS ####S PATHOLOGY [id number] [place], Phosphate [Mass/Vol] 2.1 mg/dL Low 2.3-4.2 [facility] Comment on above: Performed By: #### P HOS, MG, CH8 ####S PATHOLOGY [id number] [place], Progress Noteson 03-18-2021 [employer] Authentication Interface Message Text Normal [facility] [employer] Authentication Interface Message Text Normal [facility] [employer] Authentication Interface Message Text Normal [facility] 1:1 Interactionon 03-17-2021 [employer] Authentication Interface Message Text Normal [facility] BASIC METABOLIC PANELon 03-04 Anion gap [Moles/Vol] 12 mmol/L Normal - [facility] Comment on above: Performed By: #### T RIG, CH8, HEPATIC, PHOS, MG ####[facility] [id number] [place], Calcium [Mass/Vol] 8.0 mg/dL Low 8.4-10.4 [facility] Comment on above: Performed By: #### T RIG, CH8, HEPATIC, PHOS, MG ####[facility] [id number] [place], Chloride [Moles/Vol] 107 mmol/L Normal 97-111 [facility] Comment on above: Performed By: #### T RIG, CH8, HEPATIC, PHOS, MG ####[facility] [id number] [place], CO2 [Moles/Vol] 24 mmol/L Normal 21-30 [facility] Comment on above: Performed By: #### T RIG, CH8, HEPATIC, PHOS, MG ####[facility] PATH[facility] IJSLASAOTQ5964 [place], Creatinine [Mass/Vol] 1.08 mg/dL Normal 0.80-1.30 [facility] Comment on above: Performed By: #### T RIG, CH8, HEPATIC, PHOS, MG ####[facility] XCAMNYOWIC7858 [place], ESTIMATED GFR (CKD-EPI) 67 mL/min/1.73sqm Normal >=60 [facility] Comment on above: Performed By: #### T RIG, CH8, HEPATIC, PHOS, MG ####[facility] PATH[facility] [id number] [place], Glucose [Mass/Vol] 126 mg/dL High 80-116 [facility] Comment on above: Performed By: #### T RIG, CH8, HEPATIC, PHOS, MG ####[facility] [id number] [place], Potassium [Moles/Vol] 4.0 mmol/L Normal 3.3-5.3 [facility] Comment on above: Performed By: #### T RIG, CH8, HEPATIC, PHOS, MG ####[facility] [id number] [place], Sodium [Moles/Vol] 139 mmol/L Normal 135-148 [facility] Comment on above: Performed By: #### T RIG, CH8, HEPATIC, PHOS, MG ####S PATHOLOGY [id number] [place], Urea nitrogen [Mass/Vol] 13 mg/dL Normal 8-22 [facility] Comment on above: Performed By: #### T RIG, CH8, HEPATIC, PHOS, MG ####S PATHOLOGY [id number] [place], BLOOD GAS, ARTERIALon 2020 CR BARI -0.3 mmol/L Normal -2.0-2.0 [facility] Comment on above: Performed By: #### C R BGA ####[facility] PATHOLOGY [id number] [place] [address], CR PCO2 44.2 mm Hg Normal 35.0-45.0 [facility] Comment on above: Performed By: #### C R BGA ####[facility] PATHOLOGY [id number] [place] [address], CR PHA 7.366 Normal 7.35-7.45 [facility] Comment on above: Performed By: #### C R BGA ####[facility] PATHOLOGY [id number] [place] [address], CR PO2 89 mm Hg Normal 80-100 [facility] Comment on above: Performed By: #### C R BGA ####[facility] PATHOLOGY [id number] [place], FIO2 (CATEGORY) 40% Normal [facility] Comment on above: Performed By: #### C R BGA ####S PATHOLOGY [id number] [place], HCO3 (Bld) [Moles/Vol] 25 mmol/L Normal 22-28 e [facility] Comment on above: Performed By: #### C R BGA ####S PATHOLOGY [id number] [place], MODE Vent Normal [facility] Comment on above: Performed By: #### C R BGA ####S PATHOLOGY POPHLCWIQY7115[address] [place] [address], Oxygen saturation in Blood 96.6 % Normal >=95.1 [facility] Comment on above: Performed By: #### C R BGA ####[facility] PATHOLOGY [id number] [place] [address], CBC WITH DIFFERENTIALon 03-04 Erythrocyte distribution width (RBC) [Ratio] 13.8 % Normal 11.5-14.5 [facility] Comment on above: Performed By: #### M DIFF, CBCDSAT ####[facility] PATHOLOGY [id number] [place] [address], Hematocrit (Bld) [Volume fraction] 35.0 % Low 41.0-53.0 [facility] Comment on above: Performed By: #### M DIFF, CBCDSAT ####[facility] PATHOLOGY [id number] [place] [address], Hemoglobin (Bld) [Mass/Vol] 11.9 g/dL Low 13.9-16.3 [facility] Comment on above: Performed By: #### M DIFF, CBCDSAT ####[facility] PATHOLOGY [id number] [place], MCH (RBC) [Entitic mass] 30.9 pg Normal 26.0-34.0 [facility] Comment on above: Performed By: #### M DIFF, CBCDSAT ####[facility] PATHOLOGY [id number] [place] [address], MCHC (RBC) [Mass/Vol] 34.0 g/dL Normal 32.0-35.9 [facility] Comment on above: Performed By: #### M DIFF, CBCDSAT ####[facility] PATHOLOGY [id number] [place], MCV (RBC) [Entitic vol] 91 fL Normal 80-100 [facility] Comment on above: Performed By: #### M DIFF, CBCDSAT ####[facility] PATHOLOGY [id number] [place], MONOCYTE DISTRIBUTION WIDTH Normal [facility] Comment on above: Performed By: #### M DIFF, CBCDSAT ####[facility] PATHOLOGY [id number] [place], Platelet mean volume (Bld) [Entitic vol] 9.1 fL Normal 7.5-11.2 [facility] Comment on above: Performed By: #### M DIFF, CBCDSAT ####[facility] PATHOLOGY [id number] [place], Platelets (Bld) [#/Vol] 183 10*3/uL Normal 150-400 [facility] Comment on above: Performed By: #### M DIFF, CBCDSAT ####[facility] PATHOLOGY [id number] [place] [address], RBC (Bld) [#/Vol] 3.86 10*6/uL Low 4.50-5.90 [facility] Comment on above: Performed By: #### M DIFF, CBCDSAT ####[facility] PATHOLOGY [id number] [place] [address], WBC (Bld) [#/Vol] 10.7 10*3/uL Normal 4.5-11.5 [facility] Comment on above: Performed By: #### M DIFF, CBCDSAT ####[facility] PATHOLOGY [id number] [place] [address], Basophils (Bld) [#/Vol] 0.06 10*3/uL Normal 0.00-0.20 [facility] Comment on above: Performed By: #### C BCDSAT ####[facility] PATHOLOGY [id number] [place] [address], Basophils/100 WBC (Bld) 0.7 % Normal <=1.9 [facility] Comment on above: Performed By: #### C BCDSAT ####[facility] PATHOLOGY [id number] [place] [address], Eosinophils (Bld) [#/Vol] 0.38 10*3/uL Normal 0.00-0.70 [facility] Comment on above: Performed By: #### C BCDSAT ####[facility] PATHOLOGY [id number] [place] [address], Eosinophils/100 WBC (Bld) 4.0 % Normal 0.1-4.0 [facility] Comment on above: Performed By: #### C VERAAT ####[facility] PATHOLOGY [id number] [place], Erythrocyte distribution width (RBC) [Ratio] 13.8 % Normal 11.5-14.5 [facility] Comment on above: Performed By: #### Deborah GAMEZAT ####[facility] PATHOLOGY [id number] [place], Hematocrit (Bld) [Volume fraction] 33.5 % Low 41.0-53.0 [facility] Comment on above: Performed By: #### Deborah GAMEZAT ####S PATHOLOGY [id number] [place] [address], Hemoglobin (Bld) [Mass/Vol] 11.1 g/dL Low 13.9-16.3 [facility] Comment on above: Performed By: #### Deborah GAMEZAT ####[facility] PATHOLOGY [id number] [place] [address], Lymphocytes (Bld) [#/Vol] 0.98 10*3/uL Low 1.00-4.80 [facility] Comment on above: Performed By: #### Deborah GAMEZAT ####S PATHOLOGY [id number] [place] [address], Lymphocytes/100 WBC (Bld) 10.3 % Low 24.0-44.0 [facility] Comment on above: Performed By: #### C VERAAT ####S PATHOLOGY [id number] [place], MCH (RBC) [Entitic mass] 30.2 pg Normal 26.0-34.0 [facility] Comment on above: Performed By: #### C VERAAT ####S PATHOLOGY [id number] [place], MCHC (RBC) [Mass/Vol] 33.0 g/dL Normal 32.0-35.9 [facility] Comment on above: Performed By: #### C VERAAT ####[facility] [id number] [place], MCV (RBC) [Entitic vol] 91 fL Normal 80-100 [facility] Comment on above: Performed By: #### Deborah GAMEZAT ####[facility] PATHOLOGY [id number] [place], MONOCYTE DISTRIBUTION WIDTH Normal [facility] Comment on above: Performed By: #### Deborah GAMEZAT ####[facility] PATHOLOGY [id number] [place], Monocytes (Bld) [#/Vol] 1.19 10*3/uL High 0.20-1.00 [facility] Comment on above: Performed By: #### Deborah GAMEZAT ####[facility] PATHOLOGY [id number] [place], Monocytes/100 WBC (Bld) 12.4 % High 2.0-11.0 [facility] Comment on above: Performed By: #### Deborah GAMEZAT ####[facility] PATHOLOGY [id number] [place], Neutrophils (Bld) [#/Vol] 6.95 10*3/uL Normal 1.50-8.00 [facility] Comment on above: Performed By: #### Deborah GAMEZAT ####[facility] PATHOLOGY [id number] [place], Neutrophils/100 WBC (Bld) 72.7 % Normal 31.0-76.0 [facility] Comment on above: Performed By: #### Deborah GAMEZAT ####S PATHOLOGY [id number] [place], Platelet mean volume (Bld) [Entitic vol] 8.9 fL Normal 7.5-11.2 [facility] Comment on above: Performed By: #### Deborah GAMEZAT ####S PATHOLOGY [id number] [place], Platelets (Bld) [#/Vol] 174 10*3/uL Normal 150-400 [facility] Comment on above: Performed By: #### C BCDSAT ####[facility] LJLIEVNFOZ7590 [place], RBC (Bld) [#/Vol] 3.67 10*6/uL Low 4.50-5.90 [facility] Comment on above: Performed By: #### C BCDSAT ####[facility] [id number] [place], WBC (Bld) [#/Vol] 9.6 10*3/uL Normal 4.5-11.5 [facility] Comment on above: Performed By: #### C BCDSAT ####S PATHOLOGY [id number] [place], Care Plan Noteon 03-17-2021 [employer] Authentication Interface Message Text Normal [facility] Consultson 03-17-2021 [employer] Authentication Interface Message Text Normal [facility] [employer] Authentication Interface Message Text Normal [facility] GLUCOSE, FINGERSTICK-IN OFFI CEon 03-17-2021 Glucose [Mass/Vol] 199 mg/dL High 80-116 [facility] Comment on above: Result Comment: Salvador jovel RN, APN, MD Performed By: #### 8 2948 ####NURSING GLUCOSE [id number] [place], [address] Glucose [Mass/Vol] 144 mg/dL High 80-116 [facility] Comment on above: Result Comment: Foll ow Protocol Performed By: #### 8 2948 ####NURSING GLUCOSE OMRYQEY0255 [place], [address] Glucose [Mass/Vol] 131 mg/dL High 80-116 [facility] Comment on above: Result Comment: Foll ow Protocol Performed By: #### 8 2948 ####NURSING GLUCOSE MAIORES3462 [place], [address] Glucose [Mass/Vol] 107 mg/dL Normal 80-116 [facility] Comment on above: Result Comment: Salvador jovel RN, APN, MD Performed By: #### 8 2948 ####NURSING GLUCOSE PBTAKNH5553 [place], [address] HEPATIC FUNCTION PANELon Albumin [Mass/Vol] 2.6 g/dL Low 3.4-5.1 [facility] Comment on above: Performed By: #### T RIG, CH8, HEPATIC, PHOS, MG ####[facility] [id number] [place], ALK 64 IU/L Normal 40-200 [facility] Comment on above: Performed By: #### T RIG, CH8, HEPATIC, PHOS, MG ####[facility] PATH[facility] WPAWOVRUED1077 [place], ALT [Catalytic activity/Vol] 30 U/L Normal 7-40 [facility] Comment on above: Performed By: #### T RIG, CH8, HEPATIC, PHOS, MG ####[facility] PATH[facility] KCLZIJGOOF8321 [place], AST [Catalytic activity/Vol] 25 U/L Normal 7-40 [facility] Comment on above: Performed By: #### T RIG, CH8, HEPATIC, PHOS, MG ####[facility] PATH[facility] [id number] [place], Bilirubin [Mass/Vol] 1.2 mg/dL Normal 0.1-1.5 [facility] Comment on above: Performed By: #### T RIG, CH8, HEPATIC, PHOS, MG ####[facility] PATH[facility] UIEILRODYH3477 [place], Bilirubin.direct [Mass/Vol] 0.50 mg/dL High 0.10-0.30 [facility] Comment on above: Performed By: #### T RIG, CH8, HEPATIC, PHOS, MG ####[facility] PATH[facility] AOCPHHHOIL9751 [place], Protein [Mass/Vol] 5.4 g/dL Low 5.7-8.1 [facility] Comment on above: Performed By: #### T RIG, CH8, HEPATIC, PHOS, MG ####[facility] [id number] [place], MAGNESIUMon 03-17-2021 Magnesium [Mass/Vol] 2.1 mg/dL Normal 1.6-2.8 [facility] Comment on above: Performed By: #### T RIG, CH8, HEPATIC, PHOS, MG ####S PATHOLOGY [id number] [place], MANUAL DIFF AND MORPHon 10- BASOPHILS % BY MANUAL COUNT 1.0 % Normal <=1.9 [facility] Comment on above: Performed By: #### M DIFF, CBCDSAT ####S PATHOLOGY [id number] [place], BASOPHILS ABS BY MANUAL COUNT 0.11 K/uL Normal 0.00-0.20 [facility] Comment on above: Performed By: #### M DIFF, CBCDSAT ####S PATHOLOGY [id number] [place], CELLS COUNTED TOTAL # IN BLOOD 100 Normal [facility] Comment on above: Performed By: #### M DIFF, CBCDSAT ####S PATHOLOGY [id number] [place], EOSINOPHILS % BY MANUAL COUNT 1.0 % Normal 0.1-4.0 [facility] Comment on above: Performed By: #### M DIFF, CBCDSAT ####[facility] PATHOLOGY [id number] [place], EOSINOPHILS ABS BY MANUAL COUNT 0.11 K/uL Normal 0.00-0.70 [facility] Comment on above: Performed By: #### M DIFF, CBCDSAT ####S PATHOLOGY [id number] [place], LYMPHOCYTES % BY MANUAL COUNT 11.0 % Low 24.0-44.0 [facility] Comment on above: Performed By: #### M DIFF, CBCDSAT ####S PATHOLOGY PFNEXUZYDT1459 [place], LYMPHOCYTES ABS BY MANUAL COUNT 1.18 K/uL Normal 1.00-4.80 [facility] Comment on above: Performed By: #### M DIFF, CBCDSAT ####S PATHOLOGY TAUIXULTOI9764 [place], METAMYELOCYTES % BY MANUAL COUNT 3 % High <0 [facility] Comment on above: Performed By: #### M DIFF, CBCDSAT ####S PATHOLOGY PONHFUASFR1243 [place], METAMYELOCYTES ABS BY MANUAL COUNT 0.32 K/uL High <0.01 [facility] Comment on above: Performed By: #### M DIFF, CBCDSAT ####S PATHOLOGY ORJUAIPJCR4817 [place], MONOCYTES % BY MANUAL COUNT 7.0 % Normal 2.0-11.0 [facility] Comment on above: Performed By: #### M DIFF, CBCDSAT ####S PATHOLOGY KLNUPXCPJE4845 [place], MONOCYTES ABS BY MANUAL COUNT 0.75 K/uL Normal 0.20-1.00 [facility] Comment on above: Performed By: #### M DIFF, CBCDSAT ####[facility] PATHOLOGY [id number] [place], NEUTROPHILS % BY MANUAL COUNT 77.0 % High 31.0-76.0 [facility] Comment on above: Performed By: #### M DIFF, CBCDSAT ####[facility] PATHOLOGY NJLRMITHEZ4278 [place], NEUTROPHILS ABS BY MANUAL COUNT 8.24 K/uL High 1.50-8.00 [facility] Comment on above: Performed By: #### M DIFF, CBCDSAT ####S PATHOLOGY SQESOVDQGW5171 [place], RBC MORPHOLOGY Normal Normal [facility] Comment on above: Performed By: #### M DIFF, CBCDSAT ####S PATHOLOGY [id number] [place], PARTIAL THROMBOPLASTIN TIMEo n 03-17-2021 aPTT Coag (Bld) [Time] 68 s High 25-37 Th [facility] Comment on above: Performed By: #### A PTT ####[facility] PATH[facility] [id number] [place], PHOSPHORUSon 03-17-2021 Phosphate [Mass/Vol] 3.6 mg/dL Normal 2.3-4.2 [facility] Comment on above: Performed By: #### T RIG, CH8, HEPATIC, PHOS, MG ####[facility] PUZPAXHTLC2083 [place], Progress Noteson 03-17-2021 [employer] Authentication Interface Message Text Normal [facility] [employer] Authentication Interface Message Text Normal [facility] [employer] Authentication Interface Message Text Normal [facility] [employer] Authentication Interface Message Text Normal [facility] TRIGLYCERIDESon 03-17-2021 Triglyceride [Mass/Vol] 191 mg/dL High <151 [facility] Comment on above: Performed By: #### T RIG, CH8, HEPATIC, PHOS, MG ####[facility] PATH[facility] [id number] [place], 1:1 Interactionon 03-16-2021 [employer] Authentication Interface Message Text Normal [facility] BASIC METABOLIC PANELon 03-04 Anion gap [Moles/Vol] 16 mmol/L Normal 10-20 [facility] Comment on above: Performed By: #### C H8, MG, TRIG, PHOS, VITB12 ####S PATHOLOGY [id number] [place], Calcium [Mass/Vol] 8.1 mg/dL Low 8.4-10.4 [facility] Comment on above: Performed By: #### C H8, MG, TRIG, PHOS, VITB12 ####[facility] PLMGVIMPQT3242 [place], Chloride [Moles/Vol] 105 mmol/L Normal 97-111 [facility] Comment on above: Performed By: #### C H8, MG, TRIG, PHOS, VITB12 ####[facility] PATH[facility] [id number] [place], CO2 [Moles/Vol] 24 mmol/L Normal 21-30 [facility] Comment on above: Performed By: #### C H8, MG, TRIG, PHOS, VITB12 ####[facility] PATH[facility] [id number] [place], Creatinine [Mass/Vol] 1.16 mg/dL Normal 0.80-1.30 [facility] Comment on above: Performed By: #### C H8, MG, TRIG, PHOS, VITB12 ####[facility] PATHOLOGY [id number] [place], ESTIMATED GFR (CKD-EPI) 61 mL/min/1.73sqm Normal >=60 [facility] Comment on above: Performed By: #### C H8, MG, TRIG, PHOS, VITB12 ####[facility] PATHOLOGY [id number] [place], Glucose [Mass/Vol] 99 mg/dL Normal 80-116 [facility] Comment on above: Performed By: #### C H8, MG, TRIG, PHOS, VITB12 ####[facility] PATHOLOGY [id number] [place] [address], Potassium [Moles/Vol] 3.5 mmol/L Normal 3.3-5.3 [facility] Comment on above: Performed By: #### C H8, MG, TRIG, PHOS, VITB12 ####[facility] PATHOLOGY [id number] [place] [address], Sodium [Moles/Vol] 141 mmol/L Normal 135-148 [facility] Comment on above: Performed By: #### Deborah H8, MG, TRIG, PHOS, VITB12 ####[facility] PATHOLOGY [id number] [place], Urea nitrogen [Mass/Vol] 13 mg/dL Normal 8-22 [facility] Comment on above: Performed By: #### C H8, MG, TRIG, PHOS, VITB12 ####[facility] PATHOLOGY [id number] [place], CBC WITH DIFFERENTIALon 03-04 Erythrocyte distribution width (RBC) [Ratio] 13.9 % Normal 11.5-14.5 [facility] Comment on above: Performed By: #### C ALEXANDRO APARICIO ####[facility] PATHOLOGY [id number] [place], Hematocrit (Bld) [Volume fraction] 33.3 % Low 41.0-53.0 [facility] Comment on above: Performed By: ###ALEXANDRO BURNHAM ####[facility] PATHOLOGY [id number] [place], Hemoglobin (Bld) [Mass/Vol] 11.2 g/dL Low 13.9-16.3 [facility] Comment on above: Performed By: ###ALEXANDRO BURNHAM ####[facility] PATHOLOGY [id number] [place], MCH (RBC) [Entitic mass] 30.8 pg Normal 26.0-34.0 [facility] Comment on above: Performed By: ###ALEXANDRO BURNHAM ####[facility] PATHOLOGY [id number] [place] [address], MCHC (RBC) [Mass/Vol] 33.7 g/dL Normal 32.0-35.9 [facility] Comment on above: Performed By: ###ALEXANDRO BURNHAM ####[facility] PATHOLOGY [id number] [place], MCV (RBC) [Entitic vol] 91 fL Normal 80-100 [facility] Comment on above: Performed By: ###ALEXANDRO BURNHAM ####[facility] PATHOLOGY [id number] [place] [address], MONOCYTE DISTRIBUTION WIDTH Normal [facility] Comment on above: Performed By: ###ALEXANDRO BURNHAM ####[facility] PATHOLOGY [id number] [place], Platelet mean volume (Bld) [Entitic vol] 8.9 fL Normal 7.5-11.2 [facility] Comment on above: Performed By: ###ALEXANDRO BURNHAM ####[facility] PATHOLOG[facility] [id number] [place] [address], Platelets (Bld) [#/Vol] 175 10*3/uL Normal 150-400 [facility] Comment on above: Performed By: ###ALEXANDRO BURNHAM ####S PATHOLOGY [id number] [place], RBC (Bld) [#/Vol] 3.65 10*6/uL Low 4.50-5.90 [facility] Comment on above: Performed By: #### ALEXANDRO MCCORMACK ####S PATHOLOGY [id number] [place], WBC (Bld) [#/Vol] 8.7 10*3/uL Normal 4.5-11.5 [facility] Comment on above: Performed By: ###ALEXANDRO BURNHAM ####[facility] PATHOLOGY [id number] [place], Erythrocyte distribution width (RBC) [Ratio] 13.7 % Normal 11.5-14.5 [facility] Comment on above: Performed By: #### ALEXANDRO MCCORMACK ####[facility] PATHOLOGY [id number] [place], Hematocrit (Bld) [Volume fraction] 35.2 % Low 41.0-53.0 [facility] Comment on above: Performed By: ###ALEXANDRO BURNHAM ####[facility] PATHOLOGY [id number] [place], Hemoglobin (Bld) [Mass/Vol] 11.9 g/dL Low 13.9-16.3 [facility] Comment on above: Performed By: ###ALEXANDRO BURNHAM ####[facility] PATHOLOGY [id number] [place], MCH (RBC) [Entitic mass] 31.2 pg Normal 26.0-34.0 [facility] Comment on above: Performed By: ###ALEXANDRO BURNHAM ####S PATHOLOGY [id number] [place], MCHC (RBC) [Mass/Vol] 33.8 g/dL Normal 32.0-35.9 [facility] Comment on above: Performed By: #### ALEXANDRO MCCORMACK ####[facility] PATHOLOGY [id number] [place], MCV (RBC) [Entitic vol] 92 fL Normal 80-100 [facility] Comment on above: Performed By: ###ALEXANDRO BURNHAM ####[facility] PATHOLOGY STDIWXILUC8964 [place], MONOCYTE DISTRIBUTION WIDTH Normal [facility] Comment on above: Performed By: #### ALEXANDRO MCCORMACK ####[facility] PATHOLOGY HCQDUNGECO8841 [place], Platelet mean volume (Bld) [Entitic vol] 9.3 fL Normal 7.5-11.2 [facility] Comment on above: Performed By: ###ALEXANDRO BURNHAM ####Ck PATHOLOGY FLZVNAGLGH0144 [place], Platelets (Bld) [#/Vol] 171 10*3/uL Normal 150-400 [facility] Comment on above: Performed By: ###ALEXANDRO BURNHAM ####[facility] PATHOLOGY [id number] [place], RBC (Bld) [#/Vol] 3.83 10*6/uL Low 4.50-5.90 [facility] Comment on above: Performed By: ###ALEXANDRO BURNHAM ####[facility] PATHOLOGY GJCZHFRRGS0319 [place], WBC (Bld) [#/Vol] 8.7 10*3/uL Normal 4.5-11.5 [facility] Comment on above: Performed By: ###ALEXANDRO BURNHAM ####[facility] PATHOLOGY FNASRSKWEJ7872 [place], Basophils (Bld) [#/Vol] 0.04 10*3/uL Normal 0.00-0.20 [facility] Comment on above: Performed By: ###Antonia APARICIO ####S PATHOLOGY NHAKISJDNK6192 [place], Basophils/100 WBC (Bld) 0.5 % Normal <=1.9 [facility] Comment on above: Performed By: ###Antonia APARICIO ####[facility] PATHOLOGY ICGKXAVWVR3978 [place], Eosinophils (Bld) [#/Vol] 0.25 10*3/uL Normal 0.00-0.70 [facility] Comment on above: Performed By: #### C BCDSAT ####[facility] PATHOLOGY LZWDKEKEXU4332 [place], Eosinophils/100 WBC (Bld) 3.3 % Normal 0.1-4.0 [facility] Comment on above: Performed By: #### C BCDSAT ####[facility] PATHOLOGY [id number] [place], Erythrocyte distribution width (RBC) [Ratio] 13.6 % Normal 11.5-14.5 [facility] Comment on above: Performed By: #### C BCDSAT ####[facility] PATHOLOGY [id number] [place], Hematocrit (Bld) [Volume fraction] 32.8 % Low 41.0-53.0 [facility] Comment on above: Performed By: #### C BCDSAT ####[facility] PATHOLOGY MHRFSZGGYC0145 [place], Hemoglobin (Bld) [Mass/Vol] 10.9 g/dL Low 13.9-16.3 [facility] Comment on above: Performed By: #### C BCDSAT ####[facility] PATHOLOGY LZBMXUNQVY7039 [place], Lymphocytes (Bld) [#/Vol] 1.19 10*3/uL Normal 1.00-4.80 [facility] Comment on above: Performed By: #### C BCDSAT ####[facility] PATHOLOGY NAYQQUKMQS2862 [place], Lymphocytes/100 WBC (Bld) 16.0 % Low 24.0-44.0 [facility] Comment on above: Performed By: #### C BCDSAT ####[facility] PATHOLOGY VCRZRAZFOD1158 [place], MCH (RBC) [Entitic mass] 30.6 pg Normal 26.0-34.0 [facility] Comment on above: Performed By: #### C BCDSAT ####[facility] PATHOLOGY [id number] [place], MCHC (RBC) [Mass/Vol] 33.3 g/dL Normal 32.0-35.9 [facility] Comment on above: Performed By: #### C BCDSAT ####[facility] PATHOLOGY XCCFVRPSZX4179 [place], MCV (RBC) [Entitic vol] 92 fL Normal 80-100 [facility] Comment on above: Performed By: #### C BCDSAT ####[facility] PATHOLOGY BPPQCWQOYZ6932 [place], MONOCYTE DISTRIBUTION WIDTH Normal [facility] Comment on above: Performed By: #### C BCDSAT ####[facility] PATHOLOGY [id number] [place], Monocytes (Bld) [#/Vol] 0.89 10*3/uL Normal 0.20-1.00 [facility] Comment on above: Performed By: #### C BCDSAT ####[facility] PATHOLOGY EIOZLKSLLP6271 [place], Monocytes/100 WBC (Bld) 12.0 % High 2.0-11.0 [facility] Comment on above: Performed By: #### C BCDSAT ####[facility] PATHOLOGY LFFGEDGAMO0340 [place], Neutrophils (Bld) [#/Vol] 5.07 10*3/uL Normal 1.50-8.00 [facility] Comment on above: Performed By: #### C BCDSAT ####[facility] PATHOLOGY FFFDGYSJMK5005 [place], Neutrophils/100 WBC (Bld) 68.3 % Normal 31.0-76.0 [facility] Comment on above: Performed By: #### C BCDSAT ####S PATHOLOGY NAAEWKPZOU1980 [place], Platelet mean volume (Bld) [Entitic vol] 9.0 fL Normal 7.5-11.2 [facility] Comment on above: Performed By: #### C BCDSAT ####S PATHOLOGY VFFIAKUMHU2392 [place], Platelets (Bld) [#/Vol] 155 10*3/uL Normal 150-400 [facility] Comment on above: Performed By: #### C VERAAT ####S PATHOLOGY MRRJBPSQVG1874 [place], RBC (Bld) [#/Vol] 3.57 10*6/uL Low 4.50-5.90 [facility] Comment on above: Performed By: #### C HUMERADSAT ####S PATHOLOGY XDASMOKPAI4603 [place], WBC (Bld) [#/Vol] 7.4 10*3/uL Normal 4.5-11.5 [facility] Comment on above: Performed By: #### Deborah GAMEZAT ####[facility] PATHOLOGY CDHOEVMEUR2810 [place], Care Plan Noteon 03-16-2021 [employer] Authentication Interface Message Text Normal [facility] Consultson 03-16-2021 [employer] Authentication Interface Message Text Normal [facility] GLUCOSE, FINGERSTICK-IN OFFI CEon 03-16-2021 Glucose [Mass/Vol] 94 mg/dL Normal 80-116 [facility] Comment on above: Result Comment: Salvador jovel RN, APN, MD Performed By: #### 8 2948 ####NURSING GLUCOSE MNNLEJB3580 [place], [address] Glucose [Mass/Vol] 95 mg/dL Normal 80-116 [facility] Comment on above: Result Comment: Salvador jovel RN, APN, MD Performed By: #### 8 2948 ####NURSING GLUCOSE IWOFTAB4822 [place], [address] Glucose [Mass/Vol] 93 mg/dL Normal 80-116 [facility] Comment on above: Performed By: #### 8 2948 ####NURSING GLUCOSE UAUPGKG1344 [place], [address] MAGNESIUMon 03-16-2021 Magnesium [Mass/Vol] 2.2 mg/dL Normal 1.6-2.8 [facility] Comment on above: Performed By: #### C H8, MG, TRIG, PHOS, VITB12 ####[facility] ORLOWJWOFQ2748 [place], MANUAL DIFF AND MORPHon 10-1 BANDS % BY MANUAL COUNT 1 % Normal <=10 [facility] Comment on above: Performed By: #### ALEXANDRO MCCORMACK ####S PATHOLOGY LWQWHZSRNW5041 [place], BANDS ABS BY MANUAL COUNT 0.09 K/uL High <0.01 [facility] Comment on above: Performed By: ###ALEXANDRO BURNHAM ####S PATHOLOGY SFRKIUZYNK[address] [place] [address], BASOPHILS % BY MANUAL COUNT 2.0 % High <=1.9 [facility] Comment on above: Performed By: ###ALEXANDRO BURNHAM ####S PATHOLOGY IXGJEICSJG99[address] [place] [address], BASOPHILS ABS BY MANUAL COUNT 0.17 K/uL Normal 0.00-0.20 [facility] Comment on above: Performed By: ###ALEXANDRO BURNHAM ####[facility] PATHOLOGY MSTDVRURZV[address] [place] [address], CELLS COUNTED TOTAL # IN BLOOD 100 Normal [facility] Comment on above: Performed By: ###ALEXANDRO BURNHAM ####S PATHOLOGY MPTOHMXBWS0311 [place], EOSINOPHILS % BY MANUAL COUNT 3.0 % Normal 0.1-4.0 [facility] Comment on above: Performed By: ###ALEXANDRO BURNHAM ####S PATHOLOGY VKQIHPMNAV9[address] [place] [address], EOSINOPHILS ABS BY MANUAL COUNT 0.26 K/uL Normal 0.00-0.70 [facility] Comment on above: Performed By: ###ALEXANDRO BURNHAM ####S PATHOLOGY IRCDFBTWYZ835[address] [place] [address], LYMPHOCYTES % BY MANUAL COUNT 10.0 % Low 24.0-44.0 [facility] Comment on above: Performed By: #### ALEXANDRO MCCORMACK ####S PATHOLOGY MRURHJOFCA1274 [place], LYMPHOCYTES ABS BY MANUAL COUNT 0.87 K/uL Low 1.00-4.80 [facility] Comment on above: Performed By: #### ALEXANDRO MCCORMACK ####[facility] PBXXLZCPYN0513 [place], METAMYELOCYTES % BY MANUAL COUNT 1 % High <0 [facility] Comment on above: Performed By: #### ALEXANDRO MCCORMACK ####S PATHOLOGY GNTWAZYUYA174[address] [place] [address], METAMYELOCYTES ABS BY MANUAL COUNT 0.09 K/uL High <0.01 [facility] Comment on above: Performed By: #### ALEXANDRO MCCORMACK ####[facility] PATHOLOGY PFQZCGEWRJ[address] [place] [address], MONOCYTES % BY MANUAL COUNT 10.0 % Normal 2.0-11.0 [facility] Comment on above: Performed By: ###ALEXANDRO BURNHAM ####[facility] PATHOLOGY OPGEBLAOBV13[address] [place] [address], MONOCYTES ABS BY MANUAL COUNT 0.87 K/uL Normal 0.20-1.00 [facility] Comment on above: Performed By: #### ALEXANDRO MCCORMACK ####S PATHOLOGY IAHGOQYKFI2880 [place], NEUTROPHILS % BY MANUAL COUNT 73.0 % Normal 31.0-76.0 [facility] Comment on above: Performed By: ###ALEXANDRO BURNHAM ####[facility] DPKOQRCHXJ6280 [place], NEUTROPHILS ABS BY MANUAL COUNT 6.35 K/uL Normal 1.50-8.00 [facility] Comment on above: Performed By: #### ALEXANDRO MCCORMACK ####[facility] CCVZOQKMBV3123 [place], POLYCHROMASIA Slight Normal [facility] Comment on above: Performed By: #### ALEXANDRO MCCORMACK ####S PATHOLOGY ESEFLMSQVV1210 [place], BASOPHILS % BY MANUAL COUNT 1.0 % Normal <=1.9 [facility] Comment on above: Performed By: #### ALEXANDRO MCCORMACK ####S PATHOLOGY UULGRTQUHW0061 [place], BASOPHILS ABS BY MANUAL COUNT 0.09 K/uL Normal 0.00-0.20 [facility] Comment on above: Performed By: #### ALEXANDRO MCCORMACK ####Ck PATHOLOGY WLZBNUBCCU0442 [place], CELLS COUNTED TOTAL # IN BLOOD 100 Normal [facility] Comment on above: Performed By: #### ALEXANDRO MCCORMACK ####Ck PATHOLOGY BJISOZUPMJ5063 [place], EOSINOPHILS % BY MANUAL COUNT 3.0 % Normal 0.1-4.0 [facility] Comment on above: Performed By: #### ALEXANDRO MCCORMACK ####[facility] PATHOLOGY CESPKWQCFJ6027 [place], EOSINOPHILS ABS BY MANUAL COUNT 0.26 K/uL Normal 0.00-0.70 [facility] Comment on above: Performed By: #### ALEXANDRO MCCORMACK ####S PATHOLOGY NSRRNTDREL1174 [place], LYMPHOCYTES % BY MANUAL COUNT 14.0 % Low 24.0-44.0 [facility] Comment on above: Performed By: #### ALEXANDRO MCCORMACK ####S PATHOLOGY QFLTAEZRWY8037 [place], LYMPHOCYTES ABS BY MANUAL COUNT 1.22 K/uL Normal 1.00-4.80 [facility] Comment on above: Performed By: #### ALEXANDRO MCCORMACK ####S PATHOLOGY NKNOKMFNSU7228 [place], MONOCYTES % BY MANUAL COUNT 13.0 % High 2.0-11.0 [facility] Comment on above: Performed By: #### ALEXANDRO MCCORMACK ####[facility] PATHOLOGY QBTUUKNOAF8561 [place], MONOCYTES ABS BY MANUAL COUNT 1.13 K/uL High 0.20-1.00 [facility] Comment on above: Performed By: #### ALEXANDRO MCCORMACK ####[facility] PATHOLOGY BKNDLYUAEB[address] [place] [address], NEUTROPHILS % BY MANUAL COUNT 69.0 % Normal 31.0-76.0 [facility] Comment on above: Performed By: #### ALEXANDRO MCCORMACK ####[facility] PATHOLOGY UCRDZDDRAW[address] [place] [address], NEUTROPHILS ABS BY MANUAL COUNT 6.00 K/uL Normal 1.50-8.00 [facility] Comment on above: Performed By: #### ALEXANDRO MCCORMACK ####[facility] PATHOLOGY RWUHJEYREL[address] [place] [address], RBC MORPHOLOGY Normal Normal [facility] Comment on above: Performed By: #### ALEXANDRO MCCORMACK ####[facility] PATHOLOGY XOGADGOHDI65[address] [place] [address], PARTIAL THROMBOPLASTIN TIMEo n 03-16-2021 aPTT Coag (Bld) [Time] 72 s High - e [facility] Comment on above: Performed By: #### A PTT ####S PATHOLOGY OPPZLGWIPG25[address] [place] [address], aPTT Coag (Bld) [Time] 70 s High -37 e [facility] Comment on above: Performed By: #### A PTT ####S PATHOLOGY MTGTYWFJXG9269[address] [place] [address], aPTT Coag (Bld) [Time] 65 s High - e [facility] Comment on above: Performed By: #### A PTT ####S PATHOLOGY LCOTGNPGOT5456[address] [place] [address], aPTT Coag (Bld) [Time] 62 s High 25-37 Th e [facility] Comment on above: Performed By: #### A PTT ####S PATHOLOGY GSGPKBGDTA3478 [place], PHOSPHORUSon 03-16-2021 Phosphate [Mass/Vol] 3.2 mg/dL Normal 2.3-4.2 [facility] Comment on above: Performed By: #### C H8, MG, TRIG, PHOS, VITB12 ####[facility] NOMVROZHJR5326 [place], Procedureson 03-16-2021 [employer] Authentication Interface Message Text Normal [facility] Progress Noteson 03-16-2021 [employer] Authentication Interface Message Text Normal [facility] [employer] Authentication Interface Message Text Normal [facility] [employer] Authentication Interface Message Text Normal [facility] TRIGLYCERIDESon 03-16-2021 Triglyceride [Mass/Vol] 240 mg/dL High <151 [facility] Comment on above: Performed By: #### C H8, MG, TRIG, PHOS, VITB12 ####S PATHOLOGY LAQBNCUNGL4499 [place], URINALYSIS WITH REFLEX CULTU RE PERFORMABLEon 03-16-2021 Glucose Ql (U) Negative Normal Negative [facility] Comment on above: Order Comment: A [...] around 50%) Performed By: #### u rinalysiswcul ####S PATHOLOGY BMSYSVKYTU6020 [place], #### C URINE ####[facility] Msbxusbje4969 [place], [place] U APPEAR Clear Normal Clear [facility] Comment on above: Order Comment: A [...] around 50%) Performed By: #### u rinalysiswcul ####[facility] PATHOLOGY FVCIJSMZVA6607 [place], #### C URINE ####[facility] Imjhgwgmm4641 [place], [place] U BACTERIA Few Normal [facility] Comment on above: Order Comment: A [...] around 50%) Performed By: #### u rinalysiswcul ####[facility] PATHOLOGY JIUOVUBRLG9157 [place], #### C URINE ####[facility] Nqbkamnnu0564 [place], [place] U BILI Negative Normal Negative [facility] Comment on above: Order Comment: A [...] around 50%) Performed By: #### u rinalysiswcul ####[facility] PATHOLOGY UZPKTSQCSM5734 [place], #### C URINE ####[facility] Hktuvhuhf7559 [place], [place] U BLOOD Negative Normal Negative [facility] Comment on above: Order Comment: [...] around 50%) Performed By: #### u rinalysiswcul ####[facility] PATHOLOGY OBAQBZHQXJ3650 [place], #### C URINE ####[facility] Erwvsaztf[address] [place], [place] [id number] U COLOR Yellow Normal Yellow [facility] Comment on above: Order Comment: [...] around 50%) Performed By: #### u rinalysiswcul ####[facility] PATHOLOGY VLJKFQLXZQ2944 [place], #### C URINE ####[facility] Bhrnhbtfu2691 [place], [place] U KETONE Negative Normal Negative [facility] Comment on above: Order Comment: [...] around 50%) Performed By: #### u rinalysiswcul ####[facility] PATHOLOGY ONUBJZDLJW4561 [place], #### C URINE ####[facility] Zxtgxwtks7777 [place], [place] U LEUK Trace Abnormal Negative [facility] Comment on above: Order Comment: [...] around 50%) Performed By: #### u rinalysiswcul ####[facility] PATHOLOGY RSBHQCGMDL3508 [place], #### C URINE ####[facility] [address]vietvzfp[address] [place], [place] [id number] U MUCOUS Present Normal [facility] Comment on above: Order Comment: [...] around 50%) Performed By: #### u rinalysiswcul ####[facility] PATHOLOGY KYQERBJRRI1404 [place], #### C URINE ####[facility] Qnkueltmm8307 [place], [place] U NITRITE Negative Normal Negative [facility] Comment on above: Order Comment: [...] around 50%) Performed By: #### u rinalysiswcul ####[facility] PATHOLOGY ZDOFHJMDKA7587 [place], #### C URINE ####[facility] Jqlyooupt[address] [place], [place] [id number] U PH 6.0 Normal 5.0-8.0 [facility] Comment on above: Order Comment: A [...] around 50%) Performed By: #### u rinalysiswcul ####[facility] PATHOLOGY LUPKHDVNMM6160 [place], #### C URINE ####[facility] Skvjjygwt1083 [place], [place] U PROTEIN Negative Normal Negative [facility] Comment on above: Order Comment: [...] around 50%) Performed By: #### u rinalysiswcul ####[facility] PATHOLOGY SRDDRKQFQG1167 [place], #### C URINE ####[facility] Hujghqmnn5344 [place], [place] U RBC 0-2 Normal 0-2 [facility] Comment on above: Order Comment: [...] around 50%) Performed By: #### u rinalysiswcul ####[facility] PATHOLOGY MJAFJJLBXP9520 [place], #### C URINE ####[facility] Ogpatgjtz5135 [place], [place] U SG 1.011 Normal 1.005-1.030 [facility] Comment on above: Order Comment: [...] around 50%) Performed By: #### u rinalysiswcul ####[facility] PATHOLOGY HDSPMUPZPC9890 [place], #### C URINE ####[facility] Rddmxlvfd7636 [place], [place] U UROBILI Negative Normal 0.1 - 1.0 [facility] Comment on above: Order Comment: [...] around 50%) Performed By: #### u rinalysiswcul ####[facility] PATHOLOGY LRQOWGAWXN9523 [place], #### C URINE ####[facility] Ietubwbpl9[address] [place], [place] [id number] U WBC 0-2 Normal 0-2 [facility] Comment on above: Order Comment: A [...] around 50%) Performed By: #### u rinalysiswcul ####[facility] PATHOLOGY QARYOUGAHM0343 [place], #### C URINE ####[facility] Qlcggdgng[address] [place], [place] [id number] URINE CULTUREon 03-16-2021 Bacteria identified Cx Nom (U) C URINE: No growth of greater than 1,000 CFU/ml Normal [facility] Comment on above: Performed By: #### u rinalysiswcul ####[facility] PATHOLOGY PZLIFJBVSU6332 [place], #### C URINE ####[address] VITAMIN B12 (CYANOCOBALAMIN) on 03-16-2021 Cobalamin (Vitamin B12) [Mass/Vol] 317 pg/mL Normal >300 [facility] Comment on above: Order Comment: <152 pg/mL - [id number] - 300 pg/mL- Insufficient>300 pg/mL - Sufficient Performed By: #### C H8, MG, TRIG, PHOS, VITB12 ####S PATHOLOGY RYUUXPQWSL7441 [place], XR CHEST 1 VIEW AP OR PAon 1 XR CHEST 1 VIEW AP OR PA Normal [facility] BASIC METABOLIC PANELon 03-04 Anion gap [Moles/Vol] 12 mmol/L Normal 10-20 [facility] Comment on above: Performed By: #### C H8 ####[facility] PATHOLOGY CQBOXKUEGM0023 [place], Calcium [Mass/Vol] 7.9 mg/dL Low 8.4-10.4 [facility] Comment on above: Performed By: #### Deborah H8 ####[facility] PATHOLOGY QBTVDZVKSI3725 [place], Chloride [Moles/Vol] 102 mmol/L Normal 97-111 [facility] Comment on above: Performed By: #### Deborah H8 ####S PATHOLOGY JXHZNJQFVG6724 [place], CO2 [Moles/Vol] 25 mmol/L Normal 21-30 [facility] Comment on above: Performed By: #### Deborah H8 ####S PATHOLOGY RBLROFHARL0484 [place], Creatinine [Mass/Vol] 1.15 mg/dL Normal 0.80-1.30 [facility] Comment on above: Performed By: #### Deborah H8 ####S PATHOLOGY SCOQTYSAOM3351 [place], ESTIMATED GFR (CKD-EPI) 62 mL/min/1.73sqm Normal >=60 [facility] Comment on above: Performed By: #### Deborah H8 ####S PATHOLOGY HGBZEWFDGE5029 [place], Glucose [Mass/Vol] 113 mg/dL Normal 80-116 [facility] Comment on above: Performed By: #### C H8 ####S PATHOLOGY LULVOUMXNP2889 [place], Potassium [Moles/Vol] 3.7 mmol/L Normal 3.3-5.3 [facility] Comment on above: Performed By: #### C H8 ####S PATHOLOGY UBTDTNZHAP2523 [place], Sodium [Moles/Vol] 135 mmol/L Normal 135-148 [facility] Comment on above: Performed By: #### C H8 ####S PATHOLOGY XLKUZVHWHM6625 [place], Urea nitrogen [Mass/Vol] 17 mg/dL Normal 8-22 [facility] Comment on above: Performed By: #### C H8 ####S PATHOLOGY AHOWBQNAFT[address] [place] [address], Anion gap [Moles/Vol] 16 mmol/L Normal 10-20 [facility] Comment on above: Performed By: #### P HOS, MG, CH8 ####S PATHOLOGY QUQILHWMTQ7663 [place], Calcium [Mass/Vol] 7.9 mg/dL Low 8.4-10.4 [facility] Comment on above: Performed By: #### P HOS, MG, CH8 ####S PATHOLOGY EMQPVCJCKG3540 [place], Chloride [Moles/Vol] 103 mmol/L Normal 97-111 [facility] Comment on above: Performed By: #### P HOS, MG, CH8 ####S PATHOLOGY TPRAZRZQMD3966 [place], CO2 [Moles/Vol] 23 mmol/L Normal 21-30 [facility] Comment on above: Performed By: #### P HOS, MG, CH8 ####[facility] TYKFHPVWGD8123 [place], Creatinine [Mass/Vol] 1.12 mg/dL Normal 0.80-1.30 [facility] Comment on above: Performed By: #### P HOS, MG, CH8 ####S PATHOLOGY TKGBQPTRKP1967 [place], ESTIMATED GFR (CKD-EPI) 64 mL/min/1.73sqm Normal >=60 [facility] Comment on above: Performed By: #### P HOS, MG, CH8 ####S PATHOLOGY ASGFTPXUUE7512 [place] [place], Glucose [Mass/Vol] 117 mg/dL High 80-116 [facility] Comment on above: Performed By: #### P HOS, MG, CH8 ####S PATHOLOGY [id number] [place], [place], Potassium [Moles/Vol] 3.4 mmol/L Normal 3.3-5.3 [facility] Comment on above: Performed By: #### P HOS, MG, CH8 ####[facility] PATHOLOGY [id number] [place] [address], Sodium [Moles/Vol] 139 mmol/L Normal 135-148 [facility] Comment on above: Performed By: #### P HOS, MG, CH8 ####[facility] PATHOLOGY [id number] [place] [address], Urea nitrogen [Mass/Vol] 19 mg/dL Normal 8-22 [facility] Comment on above: Performed By: #### P HOS, MG, CH8 ####S PATHOLOGY [id number] [place] [address], CBC WITH DIFFERENTIALon 03-04 Basophils (Bld) [#/Vol] 0.06 10*3/uL Normal 0.00-0.20 [facility] Comment on above: Performed By: #### C BCDSAT ####S PATHOLOGY [id number] [place] [address], Basophils/100 WBC (Bld) 0.5 % Normal <=1.9 [facility] Comment on above: Performed By: #### C BCDSAT ####S PATHOLOGY [id number] [place] [address], Eosinophils (Bld) [#/Vol] 0.19 10*3/uL Normal 0.00-0.70 [facility] Comment on above: Performed By: #### C BCDSAT ####[facility] PATHOLOGY [id number] [place], Eosinophils/100 WBC (Bld) 1.7 % Normal 0.1-4.0 [facility] Comment on above: Performed By: #### C VERAAT ####[facility] PATHOLOGY [id number] [place] [address], Erythrocyte distribution width (RBC) [Ratio] 13.7 % Normal 11.5-14.5 [facility] Comment on above: Performed By: #### C VERAAT ####[facility] PATHOLOGY [id number] [place] [address], Hematocrit (Bld) [Volume fraction] 36.2 % Low 41.0-53.0 [facility] Comment on above: Performed By: #### C VERAAT ####[facility] PATHOLOGY [id number] [place] [address], Hemoglobin (Bld) [Mass/Vol] 12.0 g/dL Low 13.9-16.3 [facility] Comment on above: Performed By: #### C VERAAT ####[facility] PATHOLOGY [id number] [place] [address], Lymphocytes (Bld) [#/Vol] 1.10 10*3/uL Normal 1.00-4.80 [facility] Comment on above: Performed By: #### C BCMARIAMAAT ####[facility] PATHOLOGY [id number] [place], Lymphocytes/100 WBC (Bld) 9.9 % Low 24.0-44.0 [facility] Comment on above: Performed By: #### C BCMARIAMAAT ####[facility] PATHOLOGY [id number] [place], MCH (RBC) [Entitic mass] 30.5 pg Normal 26.0-34.0 [facility] Comment on above: Performed By: #### C VERAAT ####S PATHOLOGY [id number] [place], MCHC (RBC) [Mass/Vol] 33.3 g/dL Normal 32.0-35.9 [facility] Comment on above: Performed By: #### Deborah GAMEZAT ####[facility] PATHOLOGY [id number] [place], MCV (RBC) [Entitic vol] 92 fL Normal 80-100 [facility] Comment on above: Performed By: #### C VERAAT ####[facility] PATHOLOGY [id number] [place], MONOCYTE DISTRIBUTION WIDTH Normal [facility] Comment on above: Performed By: #### Deborah GAMEZAT ####[facility] PATHOLOGY [id number] [place], Monocytes (Bld) [#/Vol] 1.40 10*3/uL High 0.20-1.00 [facility] Comment on above: Performed By: #### Deborah GAMEZAT ####[facility] PATHOLOGY [id number] [place], Monocytes/100 WBC (Bld) 12.7 % High 2.0-11.0 [facility] Comment on above: Performed By: #### C VERAAT ####[facility] PATHOLOGY [id number] [place], Neutrophils (Bld) [#/Vol] 8.35 10*3/uL High 1.50-8.00 [facility] Comment on above: Performed By: #### Deborah GAMEZAT ####[facility] PATHOLOGY [id number] [place], Neutrophils/100 WBC (Bld) 75.3 % Normal 31.0-76.0 [facility] Comment on above: Performed By: #### Deborah GAMEZAT ####S PATHOLOGY [id number] [place], Platelet mean volume (Bld) [Entitic vol] 9.3 fL Normal 7.5-11.2 [facility] Comment on above: Performed By: #### C BCDSAT ####[facility] PATHOLOGY [id number] [place], Platelets (Bld) [#/Vol] 182 10*3/uL Normal 150-400 [facility] Comment on above: Performed By: #### C BCDSAT ####[facility] PATHOLOGY [id number] [place], RBC (Bld) [#/Vol] 3.95 10*6/uL Low 4.50-5.90 [facility] Comment on above: Performed By: #### C BCDSAT ####[facility] PATHOLOGY [id number] [place] [address], WBC (Bld) [#/Vol] 11.1 10*3/uL Normal 4.5-11.5 [facility] Comment on above: Performed By: #### C BCDSAT ####[facility] PATHOLOGY [id number] [place] [address], Basophils (Bld) [#/Vol] 0.05 10*3/uL Normal 0.00-0.20 [facility] Comment on above: Performed By: #### C BCDSAT ####[facility] PATHOLOGY [id number] [place] [address], Basophils/100 WBC (Bld) 0.5 % Normal <=1.9 [facility] Comment on above: Performed By: #### C BCDSAT ####[facility] PATHOLOGY [id number] [place], Eosinophils (Bld) [#/Vol] 0.20 10*3/uL Normal 0.00-0.70 [facility] Comment on above: Performed By: #### C BCDSAT ####[facility] PATHOLOGY [id number] [place] [address], Eosinophils/100 WBC (Bld) 1.9 % Normal 0.1-4.0 [facility] Comment on above: Performed By: #### C BCDSAT ####[facility] PATHOLOGY [id number] [place] [address], Erythrocyte distribution width (RBC) [Ratio] 14.0 % Normal 11.5-14.5 [facility] Comment on above: Performed By: #### C VERAAT ####[facility] PATHOLOGY [id number] [place], Hematocrit (Bld) [Volume fraction] 32.6 % Low 41.0-53.0 [facility] Comment on above: Performed By: #### C VERAAT ####[facility] PATHOLOGY [id number] [place] [address], Hemoglobin (Bld) [Mass/Vol] 11.0 g/dL Low 13.9-16.3 [facility] Comment on above: Performed By: #### Deborah GAMEZAT ####[facility] PATHOLOGY [id number] [place] [address], Lymphocytes (Bld) [#/Vol] 1.29 10*3/uL Normal 1.00-4.80 [facility] Comment on above: Performed By: #### Deborah GAMEZAT ####[facility] PATHOLOGY [id number] [place] [address], Lymphocytes/100 WBC (Bld) 12.3 % Low 24.0-44.0 [facility] Comment on above: Performed By: #### Deborah GAMEZAT ####[facility] PATHOLOGY [id number] [place] [address], MCH (RBC) [Entitic mass] 30.6 pg Normal 26.0-34.0 [facility] Comment on above: Performed By: #### Deborah GAMEZAT ####[facility] PATHOLOGY [id number] [place] [address], MCHC (RBC) [Mass/Vol] 33.8 g/dL Normal 32.0-35.9 [facility] Comment on above: Performed By: #### Deborah GAMEZAT ####[facility] PATHOLOGY [id number] [place], MCV (RBC) [Entitic vol] 91 fL Normal 80-100 [facility] Comment on above: Performed By: #### Deborah GAMEZAT ####[facility] PATHOLOGY ODECUOALMX[address] [place] [address], [place], MONOCYTE DISTRIBUTION WIDTH Normal [facility] Comment on above: Performed By: #### Deborah GAMEZAT ####[facility] PATHOLOGY [id number] [place], Monocytes (Bld) [#/Vol] 1.12 10*3/uL High 0.20-1.00 [facility] Comment on above: Performed By: #### Deborah GAMEZAT ####[facility] PATHOLOGY [id number] [place] [address], Monocytes/100 WBC (Bld) 10.8 % Normal 2.0-11.0 [facility] Comment on above: Performed By: #### Deborah GAMEZAT ####[facility] PATHOLOGY [id number] [place] [address], Neutrophils (Bld) [#/Vol] 7.79 10*3/uL Normal 1.50-8.00 [facility] Comment on above: Performed By: #### Deborah GAMEZAT ####[facility] PATHOLOGY [id number] [place] [address], Neutrophils/100 WBC (Bld) 74.5 % Normal 31.0-76.0 [facility] Comment on above: Performed By: #### Deborah GAMEZAT ####[facility] PATHOLOGY [id number] [place], Platelet mean volume (Bld) [Entitic vol] 9.1 fL Normal 7.5-11.2 [facility] Comment on above: Performed By: #### Deborah GAMEZAT ####S PATHOLOGY [id number] [place] [address], Platelets (Bld) [#/Vol] 168 10*3/uL Normal 150-400 [facility] Comment on above: Performed By: #### Deborah GAMEZAT ####S PATHOLOGY [id number] [place], RBC (Bld) [#/Vol] 3.61 10*6/uL Low 4.50-5.90 [facility] Comment on above: Performed By: #### C BCDSAT ####[facility] [id number] [place], WBC (Bld) [#/Vol] 10.4 10*3/uL Normal 4.5-11.5 [facility] Comment on above: Performed By: #### C BCDSAT ####S PATHOLOGY [id number] [place], Care Plan Noteon 03-15-2021 [employer] Authentication Interface Message Text Normal [facility] Consultson 03-15-2021 [employer] Authentication Interface Message Text Normal [facility] GLUCOSE, FINGERSTICK-IN OFFI CEon 03-15-2021 Glucose [Mass/Vol] 98 mg/dL Normal 80-116 [facility] Comment on above: Result Comment: Salvador jovel RN, APN, MD Performed By: #### 8 [id number] ####NURSING GLUCOSE [id number] [place], [address] Glucose [Mass/Vol] 106 mg/dL Normal 80-116 [facility] Comment on above: Result Comment: Salvador jovel RN, APN, MD Performed By: #### 8 2948 ####NURSING GLUCOSE [id number] [place], [address] Glucose [Mass/Vol] 114 mg/dL Normal 80-116 [facility] Comment on above: Result Comment: Salvador jovel RN, APN, MD Performed By: #### 8 2948 ####NURSING GLUCOSE [id number] [place], [address] Glucose [Mass/Vol] 90 mg/dL Normal 80-116 [facility] Comment on above: Result Comment: Salvador jovel RN, APN, MD Performed By: #### 8 5188 ####NURSING GLUCOSE [id number] [place], [address] Glucose [Mass/Vol] 97 mg/dL Normal 80-116 [facility] Comment on above: Performed By: #### 8 4242 ####NURSING GLUCOSE [id number] [place], [address] Glucose [Mass/Vol] 95 mg/dL Normal 80-116 [facility] Comment on above: Performed By: #### 8 0570 ####NURSING GLUCOSE NVVRQCN3171 [place], [address] MAGNESIUMon 03-15-2021 Magnesium [Mass/Vol] 2.2 mg/dL Normal 1.6-2.8 [facility] Comment on above: Performed By: #### P MG JOHN, CH8 ####[facility] DEAPISMEYJ2005 [place], OP Noteon 03-15-2021 [employer] Authentication Interface Message Text Normal [facility] PARTIAL THROMBOPLASTIN TIMEo n 03-15-2021 aPTT Coag (Bld) [Time] 66 s High 25-37 [facility] Comment on above: Performed By: #### A PTT ####[facility] PATH[facility] [id number] [place], aPTT Coag (Bld) [Time] 61 s High 25-37 [facility] Comment on above: Performed By: #### A PTT ####[facility] PATH[facility]Y EEXJLSZPKK4859 [place], PHOSPHORUSon 03-15-2021 Phosphate [Mass/Vol] 2.5 mg/dL Normal 2.3-4.2 [facility] Comment on above: Performed By: #### P MG JOHN, CH8 ####[facility] PATHOLOGY FKHZVLLSIP[address] [place] [address], Progress Noteson 03-15-2021 [employer] Authentication Interface Message Text Normal [facility] [employer] Authentication Interface Message Text Normal [facility] TYPE AND SCREENon 03-15-2021 ABO and Rh group Nom (Bld) Blood group AB Rh(D) positive Normal [facility] Comment on above: Performed By: #### T S ####[facility] [id number] [place], ABSC INT Negative Normal [facility] Comment on above: Performed By: #### T S ####[facility] PATH[facility] [id number] [place], BASIC METABOLIC PANELon 03-04 Anion gap [Moles/Vol] 12 mmol/L Normal 10-20 [facility] Comment on above: Performed By: #### C H8, PHOS, MG ####[facility] PATH[facility]Y [id number] [place], Calcium [Mass/Vol] 7.8 mg/dL Low 8.4-10.4 [facility] Comment on above: Performed By: #### C H8, PHOS, MG ####[facility] PATH[facility]Y [id number] [place], Chloride [Moles/Vol] 102 mmol/L Normal 97-111 [facility] Comment on above: Performed By: #### C H8, PHOS, MG ####[facility] PATH[facility]Y [id number] [place], CO2 [Moles/Vol] 26 mmol/L Normal 21-30 [facility] Comment on above: Performed By: #### C H8, PHOS, MG ####[facility]Y [id number] [place], Creatinine [Mass/Vol] 1.19 mg/dL Normal 0.80-1.30 [facility] Comment on above: Performed By: #### C H8, PHOS, MG ####[facility] MZGZYGXYYK4293 [place], ESTIMATED GFR (CKD-EPI) 59 mL/min/1.73sqm Low >=60 [facility] Comment on above: Performed By: #### C H8, PHOS, MG ####[facility] [id number] [place], Glucose [Mass/Vol] 166 mg/dL High 80-116 [facility] Comment on above: Performed By: #### C H8, PHOS, MG ####[facility] [id number] [place], Potassium [Moles/Vol] 3.7 mmol/L Normal 3.3-5.3 [facility] Comment on above: Performed By: #### C H8, PHOS, MG ####[facility] [id number] [place], Sodium [Moles/Vol] 136 mmol/L Normal 135-148 [facility] Comment on above: Performed By: #### C BRIDGETT JeronimoS, MG ####S PATHOLOGY WHJIUFZFRH5736 [place], Urea nitrogen [Mass/Vol] 21 mg/dL Normal 8-22 [facility] Comment on above: Performed By: #### C LISSETH Jeronimo, MG ####[facility] PATHOLOGY [id number] [place], CBC WITH DIFFERENTIALon 03-04 Basophils (Bld) [#/Vol] 0.04 10*3/uL Normal 0.00-0.20 [facility] Comment on above: Performed By: #### Deborah BCMARIAMAAT ####[facility] PATHOLOGY [id number] [place] [address], Basophils/100 WBC (Bld) 0.3 % Normal <=1.9 [facility] Comment on above: Performed By: #### Deborah GAMEZAT ####[facility] PATHOLOGY [id number] [place] [address], Eosinophils (Bld) [#/Vol] 0.20 10*3/uL Normal 0.00-0.70 [facility] Comment on above: Performed By: #### Deborah GAMEZAT ####[facility] PATHOLOGY NEXIOZIDXC1210[address] [place] [address], Eosinophils/100 WBC (Bld) 1.6 % Normal 0.1-4.0 [facility] Comment on above: Performed By: #### Deborah GAMEZAT ####S PATHOLOGY [id number] [place], Erythrocyte distribution width (RBC) [Ratio] 14.0 % Normal 11.5-14.5 [facility] Comment on above: Performed By: #### Deborah GAMEZAT ####S PATHOLOGY GDTOSHEJNP0487 [place], Hematocrit (Bld) [Volume fraction] 33.8 % Low 41.0-53.0 [facility] Comment on above: Performed By: #### Deborah GAMEZAT ####S PATHOLOGY EDLDYWACMN7215[address] [place] [address], Hemoglobin (Bld) [Mass/Vol] 11.0 g/dL Low 13.9-16.3 [facility] Comment on above: Performed By: #### C BCDSAT ####[facility] PATHOLOGY KZUHVDLHXM4739[address] [place] [address], Lymphocytes (Bld) [#/Vol] 1.36 10*3/uL Normal 1.00-4.80 [facility] Comment on above: Performed By: #### C BCDSAT ####[facility] PATHOLOGY [id number] [place] [address], Lymphocytes/100 WBC (Bld) 10.9 % Low 24.0-44.0 [facility] Comment on above: Performed By: #### C BCDSAT ####[facility] PATHOLOGY [id number] [place] [address], MCH (RBC) [Entitic mass] 29.6 pg Normal 26.0-34.0 [facility] Comment on above: Performed By: #### C BCDSAT ####[facility] PATHOLOGY [id number] [place] [address], MCHC (RBC) [Mass/Vol] 32.5 g/dL Normal 32.0-35.9 [facility] Comment on above: Performed By: #### C BCDSAT ####[facility] PATHOLOGY [id number] [place] [address], MCV (RBC) [Entitic vol] 91 fL Normal 80-100 [facility] Comment on above: Performed By: #### C BCDSAT ####[facility] PATHOLOGY [id number] [place] [address], MONOCYTE DISTRIBUTION WIDTH Normal [facility] Comment on above: Performed By: #### C BCDSAT ####[facility] PATHOLOGY MVXPHCHOYR0780[address] [place] [address], Monocytes (Bld) [#/Vol] 1.50 10*3/uL High 0.20-1.00 [facility] Comment on above: Performed By: #### C BCDSAT ####[facility] PATHOLOGY [id number] [place], Monocytes/100 WBC (Bld) 12.0 % High 2.0-11.0 [facility] Comment on above: Performed By: #### C BCDSAT ####[facility] PATHOLOGY [id number] [place], Neutrophils (Bld) [#/Vol] 9.37 10*3/uL High 1.50-8.00 [facility] Comment on above: Performed By: #### C BCDSAT ####[facility] PATHOLOGY KKKNAYAVXY[address] [place] [address], Neutrophils/100 WBC (Bld) 75.2 % Normal 31.0-76.0 [facility] Comment on above: Performed By: #### C BCDSAT ####[facility] PATHOLOGY [id number] [place] [address], Platelet mean volume (Bld) [Entitic vol] 8.8 fL Normal 7.5-11.2 [facility] Comment on above: Performed By: #### C BCDSAT ####[facility] PATHOLOGY [id number] [place], Platelets (Bld) [#/Vol] 172 10*3/uL Normal 150-400 [facility] Comment on above: Performed By: #### C BCDSAT ####[facility] PATHOLOGY [id number] [place], RBC (Bld) [#/Vol] 3.72 10*6/uL Low 4.50-5.90 [facility] Comment on above: Performed By: #### C BCDSAT ####[facility] PATHOLOGY [id number] [place], WBC (Bld) [#/Vol] 12.5 10*3/uL High 4.5-11.5 [facility] Comment on above: Performed By: #### C BCDSAT ####[facility] PATHOLOGY [id number] [place], Basophils (Bld) [#/Vol] 0.02 10*3/uL Normal 0.00-0.20 [facility] Comment on above: Performed By: #### C BCDSAT ####[facility] PATHOLOGY [id number] [place] [address], #### HB A1C ####[facility] PATH[facility] [address] [place], [address] Basophils/100 WBC (Bld) 0.1 % Normal <=1.9 [facility] Comment on above: Performed By: #### C BCDSAT ####[facility] PATHOLOGY [id number] [place] [address], #### HB A1C ####[facility] PATH[facility] LABORATORY [address] [place], [place], Eosinophils (Bld) [#/Vol] 0.12 10*3/uL Normal 0.00-0.70 [facility] Comment on above: Performed By: #### C BCDSAT ####[facility] PATHOLOGY [id number] [place] [address], #### HB A1C ####[facility] PATH[facility] LAB[facility] [address] [place], [address] Eosinophils/100 WBC (Bld) 0.8 % Normal 0.1-4.0 [facility] Comment on above: Performed By: #### C BCDSAT ####[facility] PATHOLOGY [id number] [place] [address], #### HB A1C ####[facility] PATH[facility] LAB[facility]ORY [address] [place], Erythrocyte distribution width (RBC) [Ratio] 13.9 % Normal 11.5-14.5 [facility] Comment on above: Performed By: #### C BCDSAT ####[facility] PATHOLOGY [id number] [place] [address], #### HB A1C ####[facility] PATH[facility] LAB[facility]ORY [address] [place], Hematocrit (Bld) [Volume fraction] 34.2 % Low 41.0-53.0 [facility] Comment on above: Performed By: #### C BCDSAT ####[facility] PATHOLOGY [id number] [place] [address], #### HB A1C ####[facility] PATH[facility] LAB[facility] [address] [place], [address] Hemoglobin (Bld) [Mass/Vol] 11.4 g/dL Low 13.9-16.3 [facility] Comment on above: Performed By: #### C BCDSAT ####[facility] PATHOLOGY [id number] [place] [address], #### HB A1C ####[facility] PATH[facility] LAB[facility] [address] [place], Lymphocytes (Bld) [#/Vol] 1.49 10*3/uL Normal 1.00-4.80 [facility] Comment on above: Performed By: #### C BCDSAT ####[facility] PATHOLOGY TFMYXTNNNT[address] [place] [address], #### HB A1C ####[facility] PATHOLOG[facility] LAB[facility]ATORY [address] [place] [address], Lymphocytes/100 WBC (Bld) 9.8 % Low 24.0-44.0 [facility] Comment on above: Performed By: #### C BCDSAT ####[facility] PATHOLOGY REDATOVHZE[address] [place] [address], #### HB A1C ####[facility] PATH[facility] LAB[facility]ORY [address] [place] [address], MCH (RBC) [Entitic mass] 30.1 pg Normal 26.0-34.0 [facility] Comment on above: Performed By: #### C BCDSAT ####[facility] PATHOLOGY [id number] [place] [address], #### HB A1C ####[facility] PATH[facility] LAB[facility] [address] [place], MCHC (RBC) [Mass/Vol] 33.2 g/dL Normal 32.0-35.9 [facility] Comment on above: Performed By: #### C BCDSAT ####[facility] PATHOLOGY [id number] [place] [address], #### HB A1C ####[facility] PATH[facility] LAB[facility]ORY [address] [place], [address] MCV (RBC) [Entitic vol] 91 fL Normal 80-100 [facility] Comment on above: Performed By: #### C BCDSAT ####[facility] [facility] [id number] [place] [address], #### HB A1C ####[facility] LABORATORY [address] [place], [address] MONOCYTE DISTRIBUTION WIDTH Normal [facility] Comment on above: Performed By: #### C BCDSAT ####[facility] PATHOLOGY [id number] [place] [address], #### HB A1C ####[facility] PATH[facility] LABOR[facility]ORY [address] [place], [address] Monocytes (Bld) [#/Vol] 1.66 10*3/uL High 0.20-1.00 [facility] Comment on above: Performed By: #### C BCDSAT ####[facility] PATHOLOGY [id number] [place] [address], #### HB A1C ####[facility] PATH[facility] LABOR[facility]ORY [address] [place], [address] Monocytes/100 WBC (Bld) 11.0 % Normal 2.0-11.0 [facility] Comment on above: Performed By: #### C BCDSAT ####[facility] PATHOLOGY [id number] [place] [address], #### HB A1C ####[facility] PATH[facility] LABOR[facility]ORY [address] [place], [address] Neutrophils (Bld) [#/Vol] 11.85 10*3/uL High 1.50-8.00 [facility] Comment on above: Performed By: #### C BCDSAT ####[facility] PATHOLOGY [id number] [place] [address], #### HB A1C ####[facility] LAB[facility] [address] [place], [address] Neutrophils/100 WBC (Bld) 78.3 % High 31.0-76.0 [facility] Comment on above: Performed By: #### C BCDSAT ####[facility] PATHOLOGY [id number] [place] [address], #### HB A1C ####[facility] PATH[facility] LAB[facility] [address] [place], [address] Platelet mean volume (Bld) [Entitic vol] 8.9 fL Normal 7.5-11.2 [facility] Comment on above: Performed By: #### C BCDSAT ####[facility] PATHOLOGY [id number] [place] [address], #### HB A1C ####[facility] PATH[facility] LAB[facility] [address] [place], [place], Platelets (Bld) [#/Vol] 178 10*3/uL Normal 150-400 [facility] Comment on above: Performed By: #### C BCDSAT ####[facility] PATHOLOGY [id number] [place] [address], #### HB A1C ####[facility] LABOR[facility] [address] [place], [place], RBC (Bld) [#/Vol] 3.76 10*6/uL Low 4.50-5.90 [facility] Comment on above: Performed By: #### C BCDSAT ####[facility] PATHOLOGY [id number] [place] [address], #### HB A1C ####[facility] LAB[facility] [address] [place], [address] WBC (Bld) [#/Vol] 15.1 10*3/uL High 4.5-11.5 [facility] Comment on above: Performed By: #### C BCDSAT ####[facility] PATHOLOGY [id number] [place] [address], #### HB A1C ####[facility] PATH[facility] LAB[facility] [address] [place], [address] Basophils (Bld) [#/Vol] 0.09 10*3/uL Normal 0.00-0.20 [facility] Comment on above: Performed By: #### C BCDSAT ####[facility] PATHOLOGY [id number] [place] [address], [place], Basophils/100 WBC (Bld) 0.5 % Normal <=1.9 [facility] Comment on above: Performed By: #### C BCDSAT ####[facility] PATHOLOGY [id number] [place], [place], Eosinophils (Bld) [#/Vol] 0.07 10*3/uL Normal 0.00-0.70 [facility] Comment on above: Performed By: #### C BCDSAT ####[facility] PATHOLOGY [id number] [place] [address], Eosinophils/100 WBC (Bld) 0.4 % Normal 0.1-4.0 [facility] Comment on above: Performed By: #### C BCDSAT ####[facility] PATHOLOGY [id number] [place] [address], Erythrocyte distribution width (RBC) [Ratio] 14.1 % Normal 11.5-14.5 [facility] Comment on above: Performed By: #### C BCDSAT ####[facility] PATHOLOGY [id number] [place] [address], Hematocrit (Bld) [Volume fraction] 36.9 % Low 41.0-53.0 [facility] Comment on above: Performed By: #### C BCDSAT ####[facility] PATHOLOGY [id number] [place], Hemoglobin (Bld) [Mass/Vol] 11.9 g/dL Low 13.9-16.3 [facility] Comment on above: Performed By: #### C BCDSAT ####[facility] PATHOLOGY [id number] [place] [address], Lymphocytes (Bld) [#/Vol] 1.47 10*3/uL Normal 1.00-4.80 [facility] Comment on above: Performed By: #### C BCDSAT ####S PATHOLOGY [id number] [place], Lymphocytes/100 WBC (Bld) 7.7 % Low 24.0-44.0 [facility] Comment on above: Performed By: #### C BCDSAT ####[facility] PATHOLOGY [id number] [place], MCH (RBC) [Entitic mass] 29.4 pg Normal 26.0-34.0 [facility] Comment on above: Performed By: #### C BCDSAT ####[facility] PATHOLOGY [id number] [place], MCHC (RBC) [Mass/Vol] 32.2 g/dL Normal 32.0-35.9 [facility] Comment on above: Performed By: #### C BCDSAT ####[facility] PATHOLOGY [id number] [place], MCV (RBC) [Entitic vol] 91 fL Normal 80-100 [facility] Comment on above: Performed By: #### C VERAAT ####[facility] PATHOLOGY [id number] [place], MONOCYTE DISTRIBUTION WIDTH Normal [facility] Comment on above: Performed By: #### Deborah GAMEZAT ####[facility] PATHOLOGY [id number] [place], Monocytes (Bld) [#/Vol] 2.41 10*3/uL High 0.20-1.00 [facility] Comment on above: Performed By: #### C BCMARIAMAAT ####[facility] PATHOLOGY [id number] [place], Monocytes/100 WBC (Bld) 12.6 % High 2.0-11.0 [facility] Comment on above: Performed By: #### C BCDSAT ####[facility] PATHOLOGY [id number] [place], Neutrophils (Bld) [#/Vol] 15.16 10*3/uL High 1.50-8.00 [facility] Comment on above: Performed By: #### C BCDSAT ####[facility] PATHOLOGY [id number] [place], Neutrophils/100 WBC (Bld) 79.0 % High 31.0-76.0 [facility] Comment on above: Performed By: #### C BCMARIAMAAT ####S PATHOLOGY [id number] [place], Platelet mean volume (Bld) [Entitic vol] 8.9 fL Normal 7.5-11.2 [facility] Comment on above: Performed By: #### C VERAAT ####S PATHOLOGY [id number] [place], Platelets (Bld) [#/Vol] 187 10*3/uL Normal 150-400 [facility] Comment on above: Performed By: #### C VERAAT ####[facility] PATHOLOGY [id number] [place], RBC (Bld) [#/Vol] 4.03 10*6/uL Low 4.50-5.90 [facility] Comment on above: Performed By: #### Deborah GAMEZAT ####[facility] PATHOLOGY [id number] [place], WBC (Bld) [#/Vol] 19.2 10*3/uL High 4.5-11.5 [facility] Comment on above: Performed By: #### Deborah GAMEZAT ####[facility] PATHOLOGY [id number] [place], Care Plan Noteon 03-14-2021 [employer] Authentication Interface Message Text Normal [facility] GLUCOSE, FINGERSTICK-IN OFFI CEon 03-14-2021 Glucose [Mass/Vol] 123 mg/dL High 80-116 [facility] Comment on above: Performed By: #### 8 2949 ####NURSING GLUCOSE [id number] [place], [address] Glucose [Mass/Vol] 132 mg/dL High 80-116 [facility] Comment on above: Result Comment: Dickson ow Protocol Performed By: #### 8 4100 ####NURSING GLUCOSE [id number] [place], [address] Glucose [Mass/Vol] 200 mg/dL High 80-116 [facility] Comment on above: Result Comment: Salvador jovel RN, APN, MD Performed By: #### 8 6993 ####NURSING GLUCOSE [id number] [place], [address] HEMOGLOBIN A1Con 03-14-2021 Glucose [Mass/Vol] 137 mg/dL Normal [facility] Comment on above: Order Comment: HbA1c of 5.7-6.4% have increased risk for diabetes and CV(Source :ADA 2014 Standard of Medical Care in Diabetes) Performed By: #### C BCDSAT ####[facility] PATHOLOGY [id number] [place], [place], #### HB A1C ####[facility] PATHOLOGY LABORATORY [address] [place], [address] HbA1c (Bld) [Mass fraction] 6.4 % High 4.0-5.6 [facility] Comment on above: Order Comment: HbA1c of 5.7-6.4% have increased risk for diabetes and CV(Source :ADA 2014 Standard of Medical Care in Diabetes) Performed By: #### C BCDSAT ####[facility] PATHOLOGY [id number] [place], #### HB A1C ####[facility] PATHOLOG[facility] LABOR[facility] [address] [place], [address] MAGNESIUMon 03-14-2021 Magnesium [Mass/Vol] 2.2 mg/dL Normal 1.6-2.8 [facility] Comment on above: Performed By: #### C H8, PHOS, MG ####[facility] PATHOLOGY [id number] [place], PARTIAL THROMBOPLASTIN TIMEo n 03-14-2021 aPTT Coag (Bld) [Time] 49 s High - e [facility] Comment on above: Performed By: #### A PTT ####[facility] PATHOLOGY [id number] [place], aPTT Coag (Bld) [Time] 88 s High -37 e [facility] Comment on above: Performed By: #### A PTT, PT ####[facility] PATHOLOGY [id number] [place], PHOSPHORUSon 03-14-2021 Phosphate [Mass/Vol] 1.8 mg/dL Low 2.3-4.2 [facility] Comment on above: Performed By: #### C H8, PHOS, MG ####[facility] [id number] [place], PROTHROMBIN TIME AND INRon 1 INR Coag (PPP) [Relative time] 1.80 {INR} High 0.90-1.10 [facility] Comment on above: Performed By: #### A PTT, PT ####[facility] [id number] [place], PT Coag (PPP) [Time] 20.2 s High 9.7-12.9 [facility] Comment on above: Performed By: #### A PTT, PT ####[facility] [id number] [place], [place], Procedureson 03-14-2021 [employer] Authentication Interface Message Text Normal [facility] Progress Noteson 03-14-2021 [employer] Authentication Interface Message Text Normal [facility] [employer] Authentication Interface Message Text Normal [facility] [employer] Authentication Interface Message Text Normal [facility] [employer] Authentication Interface Message Text Normal [facility] [employer] Authentication Interface Message Text Normal [facility] [employer] Authentication Interface Message Text Normal [facility] Anesthesia Postprocedure Mary Ann luationon 03-13-2021 [employer] Authentication Interface Message Text Normal [facility] Anesthesia Transfer Of Careo n 03-13-2021 [employer] Authentication Interface Message Text Normal [facility] BASIC METABOLIC PANELon 10- Anion gap [Moles/Vol] 13 mmol/L Normal 10-20 [facility] Comment on above: Performed By: #### M G, CH8, HEPATIC ####[facility] [id number] [place], Calcium [Mass/Vol] 8.2 mg/dL Low 8.4-10.4 [facility] Comment on above: Performed By: #### M G, CH8, HEPATIC ####[facility] [id number] [place], Chloride [Moles/Vol] 100 mmol/L Normal 97-111 [facility] Comment on above: Performed By: #### YOEL Garcia, HEPATIC ####[facility] [id number] [place], CO2 [Moles/Vol] 25 mmol/L Normal 21-30 [facility] Comment on above: Performed By: #### YOEL Garcia, HEPATIC ####[facility] [id number] [place], Creatinine [Mass/Vol] 1.13 mg/dL Normal 0.80-1.30 [facility] Comment on above: Performed By: #### YOEL Garcia, HEPATIC ####[facility] [id number] [place], ESTIMATED GFR (CKD-EPI) 63 mL/min/1.73sqm Normal >=60 [facility] Comment on above: Performed By: #### YOEL Garcia, HEPATIC ####[facility] [id number] [place], Glucose [Mass/Vol] 265 mg/dL High 80-116 [facility] Comment on above: Performed By: #### YOEL Garcia, HEPATIC ####[facility] [id number] [place], Potassium [Moles/Vol] 4.2 mmol/L Normal 3.3-5.3 [facility] Comment on above: Performed By: #### YOEL Garcia, HEPATIC ####[facility] [id number] [place], Sodium [Moles/Vol] 134 mmol/L Low 135-148 [facility] Comment on above: Performed By: #### YOEL Garcia, HEPATIC ####[facility] [id number] [place], Urea nitrogen [Mass/Vol] 18 mg/dL Normal 8-22 [facility] Comment on above: Performed By: #### YOEL Garcia, HEPATIC ####[facility] [id number] [place], Anion gap [Moles/Vol] 16 mmol/L Normal 10-20 [facility] Comment on above: Performed By: #### C H8, HEPATIC, MG, TROP I ####[facility] [id number] [place], Calcium [Mass/Vol] 8.8 mg/dL Normal 8.4-10.4 [facility] Comment on above: Performed By: #### C H8, HEPATIC, MG, TROP I ####[facility] [id number] [place], Chloride [Moles/Vol] 102 mmol/L Normal 97-111 [facility] Comment on above: Performed By: #### C H8, HEPATIC, MG, TROP I ####[facility] [id number] [place], CO2 [Moles/Vol] 23 mmol/L Normal 21-30 [facility] Comment on above: Performed By: #### Deborah H8, HEPATIC, MG, TROP I ####[facility] [id number] [place] [address], Creatinine [Mass/Vol] 1.03 mg/dL Normal 0.80-1.30 [facility] Comment on above: Performed By: #### Deborah H8, HEPATIC, MG, TROP I ####[facility] [id number] [place], ESTIMATED GFR (CKD-EPI) 71 mL/min/1.73sqm Normal >=60 [facility] Comment on above: Performed By: #### C H8, HEPATIC, MG, TROP I ####[facility] [id number] [place], Glucose [Mass/Vol] 192 mg/dL High 80-116 [facility] Comment on above: Performed By: #### C H8, HEPATIC, MG, TROP I ####[facility] [id number] [place], Potassium [Moles/Vol] 4.1 mmol/L Normal 3.3-5.3 [facility] Comment on above: Performed By: #### C H8, HEPATIC, MG, TROP I ####[facility] [id number] [place], Sodium [Moles/Vol] 137 mmol/L Normal 135-148 [facility] Comment on above: Performed By: #### C H8, HEPATIC, MG, TROP I ####S PATHOLOGY [id number] [place], Urea nitrogen [Mass/Vol] 19 mg/dL Normal 8-22 [facility] Comment on above: Performed By: #### C H8, HEPATIC, MG, TROP I ####[facility] PATHOLOGY [id number] [place], BLOOD GAS, ARTERIALon 2020 CR BARI 1.0 mmol/L Normal -2.0-2.0 [facility] Comment on above: Performed By: #### C R BGA ####[facility] PATHOLOGY [id number] [place], CR PCO2 41.5 mm Hg Normal 35.0-45.0 [facility] Comment on above: Performed By: #### C R BGA ####[facility] PATHOLOGY [id number] [place], CR PHA 7.403 Normal 7.35-7.45 [facility] Comment on above: Performed By: #### C R BGA ####[facility] PATHOLOGY [id number] [place], CR PO2 64 mm Hg Low 80-100 [facility] Comment on above: Performed By: #### C R BGA ####[facility] PATHOLOGY [id number] [place], FIO2 (CATEGORY) 40% Normal [facility] Comment on above: Performed By: #### C R BGA ####[facility] PATHOLOGY [id number] [place], HCO3 (Bld) [Moles/Vol] 25 mmol/L Normal 22-28 e [facility] Comment on above: Performed By: #### C R BGA ####[facility] PATHOLOGY [id number] [place], MODE Vent Normal [facility] Comment on above: Result Comment: VT 4 80 Peep +5 RR 18 Performed By: #### C R BGA ####[facility] PATHOLOGY [id number] [place], Oxygen saturation in Blood 92.1 % Low >=95.1 [facility] Comment on above: Performed By: #### C R BGA ####[facility] PATHOLOGY [id number] [place], CR BARI 0.1 mmol/L Normal -2.0-2.0 [facility] Comment on above: Performed By: #### C R BGA ####[facility] PATHOLOGY [id number] [place], CR PCO2 52.7 mm Hg High 35.0-45.0 [facility] Comment on above: Performed By: #### C R BGA ####[facility] PATHOLOGY [id number] [place] [address], CR PHA 7.320 Low 7.35-7.45 [facility] Comment on above: Performed By: #### C R BGA ####[facility] PATHOLOGY [id number] [place] [address], CR PO2 42 mm Hg Critically low 80-100 [facility] Comment on above: Performed By: #### C R BGA ####[facility] PATHOLOGY [id number] [place] [address], FIO2 (CATEGORY) 40% Normal [facility] Comment on above: Performed By: #### C R BGA ####[facility] PATHOLOGY [id number] [place], HCO3 (Bld) [Moles/Vol] 26 mmol/L Normal 22-28 e [facility] Comment on above: Performed By: #### C R BGA ####S PATHOLOGY [id number] [place], MODE Vent Normal [facility] Comment on above: Performed By: #### C R BGA ####[facility] PATHOLOGY [id number] [place] [address], Oxygen saturation in Blood 73.5 % Low >=95.1 [facility] Comment on above: Performed By: #### C Keyshawn BGA ####[facility] PATHOLOGY [id number] [place] [address], CBC WITH DIFFERENTIALon 03-04 Basophils (Bld) [#/Vol] 0.05 10*3/uL Normal 0.00-0.20 [facility] Comment on above: Performed By: #### C BCDSAT ####[facility] PATHOLOGY [id number] [place] [address], Basophils/100 WBC (Bld) 0.3 % Normal <=1.9 [facility] Comment on above: Performed By: #### C BCDSAT ####[facility] PATHOLOGY [id number] [place] [address], Eosinophils (Bld) [#/Vol] 0.02 10*3/uL Normal 0.00-0.70 [facility] Comment on above: Performed By: #### C BCDSAT ####[facility] PATHOLOGY [id number] [place] [address], Eosinophils/100 WBC (Bld) 0.1 % Normal 0.1-4.0 [facility] Comment on above: Performed By: #### C BCDSAT ####[facility] PATHOLOGY [id number] [place] [address], Erythrocyte distribution width (RBC) [Ratio] 14.1 % Normal 11.5-14.5 [facility] Comment on above: Performed By: #### C BCDSAT ####[facility] PATHOLOGY [id number] [place] [address], Hematocrit (Bld) [Volume fraction] 36.0 % Low 41.0-53.0 [facility] Comment on above: Performed By: #### C BCDSAT ####[facility] PATHOLOGY [id number] [place] [address], Hemoglobin (Bld) [Mass/Vol] 11.8 g/dL Low 13.9-16.3 [facility] Comment on above: Performed By: #### C BCDSAT ####[facility] PATHOLOGY [id number] [place], Lymphocytes (Bld) [#/Vol] 0.93 10*3/uL Low 1.00-4.80 [facility] Comment on above: Performed By: #### C BCDSAT ####[facility] PATHOLOGY [id number] [place], Lymphocytes/100 WBC (Bld) 4.9 % Low 24.0-44.0 [facility] Comment on above: Performed By: #### C BCDSAT ####[facility] PATHOLOGY [id number] [place], MCH (RBC) [Entitic mass] 30.2 pg Normal 26.0-34.0 [facility] Comment on above: Performed By: #### C BCDSAT ####[facility] PATHOLOGY [id number] [place] [address], MCHC (RBC) [Mass/Vol] 32.8 g/dL Normal 32.0-35.9 [facility] Comment on above: Performed By: #### C BCDSAT ####[facility] PATHOLOGY [id number] [place], MCV (RBC) [Entitic vol] 92 fL Normal 80-100 [facility] Comment on above: Performed By: #### C BCDSAT ####[facility] PATHOLOGY [id number] [place], MONOCYTE DISTRIBUTION WIDTH Normal [facility] Comment on above: Performed By: #### C BCDSAT ####[facility] PATHOLOGY [id number] [place] [address], Monocytes (Bld) [#/Vol] 1.86 10*3/uL High 0.20-1.00 [facility] Comment on above: Performed By: #### C BCDSAT ####[facility] PATHOLOGY [id number] [place], Monocytes/100 WBC (Bld) 9.8 % Normal 2.0-11.0 [facility] Comment on above: Performed By: #### C BCDSAT ####[facility] PATHOLOGY [id number] [place], Neutrophils (Bld) [#/Vol] 16.16 10*3/uL High 1.50-8.00 [facility] Comment on above: Performed By: #### C BCDSAT ####[facility] PATHOLOGY [id number] [place], Neutrophils/100 WBC (Bld) 85.0 % High 31.0-76.0 [facility] Comment on above: Performed By: #### C BCDSAT ####[facility] PATHOLOG[facility] [id number] [place], Platelet mean volume (Bld) [Entitic vol] 9.0 fL Normal 7.5-11.2 [facility] Comment on above: Performed By: #### C BCDSAT ####[facility] PATHOLOGY [id number] [place] [address], Platelets (Bld) [#/Vol] 181 10*3/uL Normal 150-400 [facility] Comment on above: Performed By: #### C BCDSAT ####[facility] PATHOLOG[facility] [id number] [place], RBC (Bld) [#/Vol] 3.91 10*6/uL Low 4.50-5.90 [facility] Comment on above: Performed By: #### C BCDSAT ####[facility] PATHOLOGY [id number] [place], WBC (Bld) [#/Vol] 19.0 10*3/uL High 4.5-11.5 [facility] Comment on above: Performed By: #### C BCDSAT ####[facility] PATHOLOGY [id number] [place], Basophils (Bld) [#/Vol] 0.09 10*3/uL Normal 0.00-0.20 [facility] Comment on above: Performed By: #### C BCDSAT ####[facility] PATHOLOGY [id number] [place], Basophils/100 WBC (Bld) 0.5 % Normal <=1.9 The [facility] Comment on above: Performed By: #### C BCDSAT ####[facility] PATHOLOGY [id number] [place], [place], Eosinophils (Bld) [#/Vol] 0.00 10*3/uL Normal 0.00-0.70 [facility] Comment on above: Performed By: #### C BCDSAT ####[facility] PATHOLOGY [id number] [place] [address], Eosinophils/100 WBC (Bld) 0.0 % Low 0.1-4.0 [facility] Comment on above: Performed By: #### C BCDSAT ####[facility] PATHOLOGY [id number] [place] [address], Erythrocyte distribution width (RBC) [Ratio] 14.1 % Normal 11.5-14.5 [facility] Comment on above: Performed By: #### C BCDSAT ####[facility] PATHOLOGY [id number] [place] [address], Hematocrit (Bld) [Volume fraction] 36.1 % Low 41.0-53.0 [facility] Comment on above: Performed By: #### C BCDSAT ####[facility] PATHOLOGY [id number] [place] [address], Hemoglobin (Bld) [Mass/Vol] 12.1 g/dL Low 13.9-16.3 The [facility] Comment on above: Performed By: #### C BCDSAT ####[facility] PATHOLOGY [id number] [place] [address], Lymphocytes (Bld) [#/Vol] 0.64 10*3/uL Low 1.00-4.80 [facility] Comment on above: Performed By: #### C BCDSAT ####[facility] PATHOLOGY [id number] [place] [address], Lymphocytes/100 WBC (Bld) 3.3 % Low 24.0-44.0 [facility] Comment on above: Performed By: #### C BCDSAT ####[facility] PATHOLOGY [id number] [place], MCH (RBC) [Entitic mass] 30.5 pg Normal 26.0-34.0 [facility] Comment on above: Performed By: #### Deborah GAMEZAT ####[facility] PATHOLOGY [id number] [place], MCHC (RBC) [Mass/Vol] 33.4 g/dL Normal 32.0-35.9 [facility] Comment on above: Performed By: #### Deborah GAMEZAT ####[facility] PATHOLOGY [id number] [place], MCV (RBC) [Entitic vol] 91 fL Normal 80-100 [facility] Comment on above: Performed By: #### Deborah GAMEZAT ####[facility] PATHOLOGY [id number] [place] [address], MONOCYTE DISTRIBUTION WIDTH Normal [facility] Comment on above: Performed By: #### eDborah GAMEZAT ####[facility] PATHOLOGY [id number] [place] [address], Monocytes (Bld) [#/Vol] 1.73 10*3/uL High 0.20-1.00 [facility] Comment on above: Performed By: #### Deborah GAMEZAT ####[facility] PATHOLOGY [id number] [place] [address], Monocytes/100 WBC (Bld) 8.8 % Normal 2.0-11.0 [facility] Comment on above: Performed By: #### Deborah GAMEZAT ####[facility] PATHOLOGY [id number] [place] [address], Neutrophils (Bld) [#/Vol] 17.30 10*3/uL High 1.50-8.00 [facility] Comment on above: Performed By: #### C VERAAT ####[facility] PATHOLOGY [id number] [place] [address], Neutrophils/100 WBC (Bld) 87.5 % High 31.0-76.0 [facility] Comment on above: Performed By: #### Deborah GAMEZAT ####[facility] PATHOLOGY [id number] [place], Platelet mean volume (Bld) [Entitic vol] 8.6 fL Normal 7.5-11.2 [facility] Comment on above: Performed By: #### C BCDSAT ####[facility] PATHOLOGY [id number] [place], Platelets (Bld) [#/Vol] 203 10*3/uL Normal 150-400 [facility] Comment on above: Performed By: #### C BCDSAT ####[facility] PATHOLOGY [id number] [place], RBC (Bld) [#/Vol] 3.96 10*6/uL Low 4.50-5.90 [facility] Comment on above: Performed By: #### C BCDSAT ####[facility] PATHOLOGY [id number] [place], WBC (Bld) [#/Vol] 19.8 10*3/uL High 4.5-11.5 [facility] Comment on above: Performed By: #### C BCDSAT ####[facility] PATHOLOGY [id number] [place], COMPLETE BLOOD COUNT 03-13 Erythrocyte distribution width (RBC) [Ratio] 13.8 % Normal 11.5-14.5 [facility] Comment on above: Performed By: #### C BC ####[facility] PATHOLOGY [id number] [place], Hematocrit (Bld) [Volume fraction] 37.6 % Low 41.0-53.0 [facility] Comment on above: Performed By: #### C BC ####[facility] PATHOLOGY [id number] [place], Hemoglobin (Bld) [Mass/Vol] 12.5 g/dL Low 13.9-16.3 [facility] Comment on above: Performed By: #### C BC ####[facility] PATHOLOGY [id number] [place], MCH (RBC) [Entitic mass] 30.7 pg Normal 26.0-34.0 [facility] Comment on above: Performed By: #### C BC ####S PATHOLOGY [id number] [place], MCHC (RBC) [Mass/Vol] 33.1 g/dL Normal 32.0-35.9 [facility] Comment on above: Performed By: #### C BC ####S PATHOLOGY [id number] [place], MCV (RBC) [Entitic vol] 93 fL Normal 80-100 [facility] Comment on above: Performed By: #### C BC ####[facility] PATHOLOGY [id number] [place], Platelet mean volume (Bld) [Entitic vol] 9.1 fL Normal 7.5-11.2 [facility] Comment on above: Performed By: #### C BC ####[facility] PATHOLOGY [id number] [place], Platelets (Bld) [#/Vol] 186 10*3/uL Normal 150-400 [facility] Comment on above: Performed By: #### C BC ####[facility] PATHOLOGY [id number] [place], RBC (Bld) [#/Vol] 4.05 10*6/uL Low 4.50-5.90 [facility] Comment on above: Performed By: #### C BC ####[facility] PATHOLOGY [id number] [place], WBC (Bld) [#/Vol] 19.4 10*3/uL High 4.5-11.5 [facility] Comment on above: Performed By: #### C BC ####S PATHOLOGY [id number] [place], Erythrocyte distribution width (RBC) [Ratio] 13.9 % Normal 11.5-14.5 [facility] Comment on above: Performed By: #### C BC ####S PATHOLOGY [id number] [place], Hematocrit (Bld) [Volume fraction] 39.5 % Low 41.0-53.0 [facility] Comment on above: Performed By: #### C BC ####[facility] PATHOLOGY [id number] [place], Hemoglobin (Bld) [Mass/Vol] 13.2 g/dL Low 13.9-16.3 [facility] Comment on above: Performed By: #### C BC ####[facility] PATHOLOGY [id number] [place], MCH (RBC) [Entitic mass] 30.3 pg Normal 26.0-34.0 [facility] Comment on above: Performed By: #### C BC ####[facility] PATHOLOGY [id number] [place], MCHC (RBC) [Mass/Vol] 33.4 g/dL Normal 32.0-35.9 [facility] Comment on above: Performed By: #### C BC ####[facility] PATHOLOGY [id number] [place] [address], MCV (RBC) [Entitic vol] 91 fL Normal 80-100 [facility] Comment on above: Performed By: #### C BC ####[facility] PATHOLOGY [id number] [place], Platelet mean volume (Bld) [Entitic vol] 8.6 fL Normal 7.5-11.2 [facility] Comment on above: Performed By: #### C BC ####[facility] PATHOLOGY [id number] [place], Platelets (Bld) [#/Vol] 219 10*3/uL Normal 150-400 [facility] Comment on above: Performed By: #### C BC ####[facility] PATHOLOGY [id number] [place], RBC (Bld) [#/Vol] 4.35 10*6/uL Low 4.50-5.90 [facility] Comment on above: Performed By: #### C BC ####[facility] PATHOLOGY [id number] [place], WBC (Bld) [#/Vol] 21.9 10*3/uL High 4.5-11.5 [facility] Comment on above: Performed By: #### C BC ####[facility] [id number] [place], Consultson 03-13-2021 [employer] Authentication Interface Message Text Normal [facility] GLUCOSE, FINGERSTICK-IN OFFI CEon 03-13-2021 Glucose [Mass/Vol] 194 mg/dL High 80-116 [facility] Comment on above: Performed By: #### 8 2948 ####NURSING GLUCOSE [id number] [place], [address] Glucose [Mass/Vol] 207 mg/dL High 80-116 [facility] Comment on above: Performed By: #### 8 2948 ####NURSING GLUCOSE [id number] [place], [address] H AND Josue 03-13-2021 [employer] Authentication Interface Message Text Normal [facility] HEPATIC FUNCTION PANELon Albumin [Mass/Vol] 3.7 g/dL Normal 3.4-5.1 [facility] Comment on above: Performed By: #### YOEL Garcia, HEPATIC ####[facility] [id number] [place], ALK 68 IU/L Normal 40-200 [facility] Comment on above: Performed By: #### YOEL Garcia, HEPATIC ####[facility] [id number] [place], ALT [Catalytic activity/Vol] 34 U/L Normal 7-40 [facility] Comment on above: Performed By: #### YOEL Garcia, HEPATIC ####[facility] [id number] [place], AST [Catalytic activity/Vol] 29 U/L Normal 7-40 [facility] Comment on above: Performed By: #### YOEL Garcia, HEPATIC ####[facility] [id number] [place], Bilirubin [Mass/Vol] 1.9 mg/dL High 0.1-1.5 [facility] Comment on above: Performed By: #### M G, CH8, HEPATIC ####S PATHOLOGY [id number] [place], Bilirubin.direct [Mass/Vol] 0.40 mg/dL High 0.10-0.30 [facility] Comment on above: Performed By: #### M G, CH8, HEPATIC ####S PATHOLOGY [id number] [place], Protein [Mass/Vol] 6.7 g/dL Normal 5.7-8.1 [facility] Comment on above: Performed By: #### M G, CH8, HEPATIC ####S PATHOLOGY [id number] [place], Albumin [Mass/Vol] 4.0 g/dL Normal 3.4-5.1 [facility] Comment on above: Performed By: #### C H8, HEPATIC, MG, TROP I ####S PATHOLOGY [id number] [place], ALK 72 IU/L Normal 40-200 [facility] Comment on above: Performed By: #### C H8, HEPATIC, MG, TROP I ####S PATHOLOGY [id number] [place], ALT [Catalytic activity/Vol] 31 U/L Normal 7-40 [facility] Comment on above: Performed By: #### C H8, HEPATIC, MG, TROP I ####[facility] [id number] [place], AST [Catalytic activity/Vol] 26 U/L Normal 7-40 [facility] Comment on above: Performed By: #### C H8, HEPATIC, MG, TROP I ####[facility] [id number] [place], Bilirubin [Mass/Vol] 2.2 mg/dL High 0.1-1.5 [facility] Comment on above: Performed By: #### C H8, HEPATIC, MG, TROP I ####[facility] [id number] [place], Bilirubin.direct [Mass/Vol] 0.60 mg/dL High 0.10-0.30 [facility] Comment on above: Performed By: #### C H8, HEPATIC, MG, TROP I ####S PATHOLOGY XZIKIOVIRN2854 [place], Protein [Mass/Vol] 6.8 g/dL Normal 5.7-8.1 [facility] Comment on above: Performed By: #### C H8, HEPATIC, MG, TROP I ####S PATHOLOGY [id number] [place], LACTIC ACIDon 03-13-2021 CR LACT 1.7 mmol/L Normal 0.5-2.0 [facility] Comment on above: Performed By: #### L ACT ####[facility] PATHOLOGY [id number] [place] [address], MAGNESIUMon 03-13-2021 Magnesium [Mass/Vol] 2.3 mg/dL Normal 1.6-2.8 [facility] Comment on above: Performed By: #### M G, CH8, HEPATIC ####S PATHOLOGY [id number] [place], Magnesium [Mass/Vol] 2.3 mg/dL Normal 1.6-2.8 [facility] Comment on above: Performed By: #### C H8, HEPATIC, MG, TROP I ####S PATHOLOGY [id number] [place], PARTIAL THROMBOPLASTIN TIMEo n 03-13-2021 aPTT Coag (Bld) [Time] 79 s High - e [facility] Comment on above: Performed By: #### A PTT ####S PATHOLOGY [id number] [place], aPTT Coag (Bld) [Time] 74 s High - e [facility] Comment on above: Performed By: #### A PTT ####S PATHOLOGY WHSJIZNARS0592 [place], aPTT Coag (Bld) [Time] 31 s Normal -37 Th e [facility] Comment on above: Performed By: #### A PTT ####S PATHOLOGY HOUSTRKACZ9172 [place], aPTT Coag (Bld) [Time] 34 s Normal 25-37 Th e [facility] Comment on above: Performed By: #### P T, APTT ####S PATHOLOGY [id number] [place], PROTHROMBIN TIME AND INRon 1 INR Coag (PPP) [Relative time] 1.78 {INR} High 0.90-1.10 [facility] Comment on above: Performed By: #### P T ####[facility] [id number] [place], PT Coag (PPP) [Time] 19.7 s High 9.7-12.9 [facility] Comment on above: Performed By: #### P T ####S PATHOLOGY ESXQRKMZBW5553 [place], INR Coag (PPP) [Relative time] 1.82 {INR} High 0.90-1.10 [facility] Comment on above: Performed By: #### P T, APTT ####S PATHOLOGY [id number] [place], PT Coag (PPP) [Time] 20.1 s High 9.7-12.9 [facility] Comment on above: Performed By: #### P T, APTT ####S PATHOLOGY [id number] [place] [address], Progress Noteson 03-13-2021 [employer] Authentication Interface Message Text Attempted to reach out to family to give update. Unable to reach. Will continue to try to reach out. Dorian Martel MD PGY-3 Normal [facility] [employer] Authentication Interface Message Text Normal [facility] [employer] Authentication Interface Message Text Normal [facility] [employer] Authentication Interface Message Text Normal [facility] [employer] Authentication Interface Message Text Normal [facility] [employer] Authentication Interface Message Text Normal [facility] RESPIRATORY CULTURE, MISCon 03-13-2021 RESPIRATORY CULTURE, MISC Normal [facility] Comment on above: Performed By: #### C RESP ####[facility] Tbmpedidw5182 [place], [place] TROPONIN Ion 03-13-2021 TROP I < 0.030 Normal <0.120 [facility] Comment on above: Result Comment: Rang [...] By: #### T ROP I ####S PATHOLOGY [id number] [place], TROP I 0.036 ng/mL Normal <0.120 [facility] Comment on above: Result Comment: Rang [...] H8, HEPATIC, MG, TROP I ####[facility] [id number] [place], XR CHEST 1 VIEW AP OR PAon 1 XR CHEST 1 VIEW AP OR PA Normal [facility] ABO RH TYPEon 03-12-2021 ABO and Rh group Nom (Bld) Blood group AB Rh(D) positive Normal [facility] Comment on above: Performed By: #### A BORH ####[facility] [id number] [place], Anesthesia Attestationon [employer] Authentication Interface Message Text Normal [facility] Anesthesia Preprocedure Eval uationon 03-12-2021 [employer] Authentication Interface Message Text Normal [facility] B TYPE NATRIURETIC PEPTIDEon 03-12-2021 Natriuretic peptide B (Bld) [Mass/Vol] 132.0 pg/mL High <100.0 [facility] Comment on above: Performed By: #### B PL, CBCDSAT ####S PATHOLOGY [id number] [place], BASIC METABOLIC PANELon 100 Anion gap [Moles/Vol] 15 mmol/L Normal 10-20 [facility] Comment on above: Performed By: #### M G, HEPATIC, TROP I, LIP, CH8 ####[facility] PATHOLOGY [id number] [place], Calcium [Mass/Vol] 8.8 mg/dL Normal 8.4-10.4 [facility] Comment on above: Performed By: #### M G, HEPATIC, TROP I, LIP, CH8 ####[facility] PATHOLOGY [id number] [place], Chloride [Moles/Vol] 100 mmol/L Normal 97-111 [facility] Comment on above: Performed By: #### M G, HEPATIC, TROP I, LIP, CH8 ####[facility] PATHOLOGY [id number] [place], CO2 [Moles/Vol] 24 mmol/L Normal 21-30 [facility] Comment on above: Performed By: #### M G, HEPATIC, TROP I, LIP, CH8 ####[facility] PATHOLOGY [id number] [place], Creatinine [Mass/Vol] 1.07 mg/dL Normal 0.80-1.30 [facility] Comment on above: Performed By: #### M G, HEPATIC, TROP I, LIP, CH8 ####[facility] PATHOLOGY [id number] [place], ESTIMATED GFR (CKD-EPI) 68 mL/min/1.73sqm Normal >=60 [facility] Comment on above: Performed By: #### M G, HEPATIC, TROP I, LIP, CH8 ####[facility] [id number] [place], Glucose [Mass/Vol] 198 mg/dL High 80-116 [facility] Comment on above: Performed By: #### M G, HEPATIC, TROP I, LIP, CH8 ####S PATHOLOGY [id number] [place], Potassium [Moles/Vol] 4.1 mmol/L Normal 3.3-5.3 [facility] Comment on above: Performed By: #### M G, HEPATIC, TROP I, LIP, CH8 ####[facility] PATHOLOGY [id number] [place], Sodium [Moles/Vol] 135 mmol/L Normal 135-148 [facility] Comment on above: Performed By: #### M G, HEPATIC, TROP I, LIP, CH8 ####[facility] PATHOLOGY [id number] [place], Urea nitrogen [Mass/Vol] 17 mg/dL Normal 8-22 [facility] Comment on above: Performed By: #### M G, HEPATIC, TROP I, LIP, CH8 ####[facility] PATHOLOGY [id number] [place], BLOOD CULTUREon 03-12-2021 Bacteria identified Cx Nom (Bld) C BLOOD: No Growth Normal [facility] Comment on above: Performed By: #### C BLOOD ####[facility] Kpuvhfzsl0798 [place], [place] Blood Attestationon 03-12-20 21 [employer] Authentication Interface Message Text Normal [facility] CBC WITH DIFFERENTIALon Basophils (Bld) [#/Vol] 0.04 10*3/uL Normal 0.00-0.20 [facility] Comment on above: Performed By: #### B PL, CBCDSAT ####[facility] PATHOLOGY [id number] [place], Basophils/100 WBC (Bld) 0.2 % Normal <=1.9 [facility] Comment on above: Performed By: #### B PL, CBCDSAT ####[facility] [id number] [place], Eosinophils (Bld) [#/Vol] 0.00 10*3/uL Normal 0.00-0.70 [facility] Comment on above: Performed By: #### B PL, CBCDSAT ####S PATHOLOGY NVGIMRFNRI4496 [place], Eosinophils/100 WBC (Bld) 0.0 % Low 0.1-4.0 [facility] Comment on above: Performed By: #### B PL, CBCDSAT ####[facility] PATHOLOGY [id number] [place] [address], Erythrocyte distribution width (RBC) [Ratio] 13.9 % Normal 11.5-14.5 [facility] Comment on above: Performed By: #### B PL, CBCDSAT ####[facility] PATHOLOGY [id number] [place] [address], Hematocrit (Bld) [Volume fraction] 42.0 % Normal 41.0-53.0 [facility] Comment on above: Performed By: #### B PL, CBCDSAT ####[facility] PATHOLOGY [id number] [place] [address], Hemoglobin (Bld) [Mass/Vol] 14.1 g/dL Normal 13.9-16.3 [facility] Comment on above: Performed By: #### B PL, CBCDSAT ####[facility] PATHOLOGY [id number] [place], Lymphocytes (Bld) [#/Vol] 0.58 10*3/uL Low 1.00-4.80 [facility] Comment on above: Performed By: #### B PL, CBCDSAT ####[facility] PATHOLOGY [id number] [place] [address], Lymphocytes/100 WBC (Bld) 2.5 % Low 24.0-44.0 [facility] Comment on above: Performed By: #### B PL, CBCDSAT ####[facility] PATHOLOGY [id number] [place] [address], MCH (RBC) [Entitic mass] 30.4 pg Normal 26.0-34.0 [facility] Comment on above: Performed By: #### B PL, CBCDSAT ####S PATHOLOGY [id number] [place], MCHC (RBC) [Mass/Vol] 33.5 g/dL Normal 32.0-35.9 [facility] Comment on above: Performed By: #### B PL, CBCDSAT ####S PATHOLOGY IFDBSJEHMV3266[address] [place] [address], MCV (RBC) [Entitic vol] 91 fL Normal 80-100 [facility] Comment on above: Performed By: #### B PL, CBCDSAT ####[facility] PATHOLOGY [id number] [place] [address], MONOCYTE DISTRIBUTION WIDTH 18 Normal <=20 [facility] Comment on above: Performed By: #### B PL, CBCDSAT ####[facility] PATHOLOGY [id number] [place] [address], Monocytes (Bld) [#/Vol] 1.72 10*3/uL High 0.20-1.00 [facility] Comment on above: Performed By: #### B PL, CBCDSAT ####[facility] PATHOLOGY [id number] [place] [address], Monocytes/100 WBC (Bld) 7.5 % Normal 2.0-11.0 [facility] Comment on above: Performed By: #### B PL, CBCDSAT ####[facility] PATHOLOGY [id number] [place] [address], Neutrophils (Bld) [#/Vol] 20.56 10*3/uL High 1.50-8.00 [facility] Comment on above: Performed By: #### B PL, CBCDSAT ####[facility] PATHOLOGY [id number] [place] [address], Neutrophils/100 WBC (Bld) 89.8 % High 31.0-76.0 [facility] Comment on above: Performed By: #### B PL, CBCDSAT ####S PATHOLOGY [id number] [place] [address], [place], Platelet mean volume (Bld) [Entitic vol] 9.0 fL Normal 7.5-11.2 [facility] Comment on above: Performed By: #### B PL, CBCDSAT ####S PATHOLOGY [id number] [place], Platelets (Bld) [#/Vol] 226 10*3/uL Normal 150-400 [facility] Comment on above: Performed By: #### B PL, CBCDSAT ####[facility] [id number] [place], RBC (Bld) [#/Vol] 4.64 10*6/uL Normal 4.50-5.90 [facility] Comment on above: Performed By: #### B PL, CBCDSAT ####[facility] [id number] [place], WBC (Bld) [#/Vol] 22.9 10*3/uL High 4.5-11.5 [facility] Comment on above: Performed By: #### B PL, CBCDSAT ####[facility] PATHOLOGY [id number] [place], COVID/INFLUENZAon 03-12-2021 INFLUENZA A Not detected Normal Not Detected [facility] Comment on above: Order Comment: This test is intended for use only under Emergency Use Authorization (EUA). This test was developed, and its performance characteristics determined by [facility] which is certified under CLIA as qualified to perform high complexity clinical laboratory testing. Result Comment: This assay was performed using [place] [employer] technology. Performed By: #### F SOLOMON/COVID ####S PATHOLOGY [id number] [place], [place], INFLUENZA B Not detected Normal Not Detected [facility] Comment on above: Order Comment: This test is intended for use only under Emergency Use Authorization (EUA). This test was developed, and its performance characteristics determined by [facility] which is certified under CLIA as qualified to perform high complexity clinical laboratory testing. Result Comment: This assay was performed using [employer] RTPCR technology. Performed By: #### F SOLOMON/COVID ####[facility] PATHOLOGY [id number] [place], SARS-CoV-2 (COVID-19) RNA MICHELLE+probe Ql (Unsp spec) Not detected Normal Not Detected [facility] Comment on above: Order Comment: This test is intended for use only under Emergency Use Authorization (EUA). This test was developed, and its performance characteristics determined by [facility] which is certified under CLIA as qualified to perform high complexity clinical laboratory testing. Result Comment: This assay was performed using [employer] RTPCR technology. Performed By: #### F SOLOMON/COVID ####[facility] PATHOLOGY [id number] [place], [place], CT CHEST W/ CONTRASTon 03-12 CT CHEST W/ CONTRAST Normal [facility] CT NECK W/ CONTRASTon 2020 CT NECK W/ CONTRAST Normal [facility] Consultson 03-12-2021 [employer] Authentication Interface Message Text Normal [facility] ED Noteson 03-12-2021 [employer] Authentication Interface Message Text 1200- EKG COMPLETED AND SHOWN TO ATTENDING. Normal [facility] [employer] Authentication Interface Message Text 1052- IV ESTABLISHED, BLOOD SPECIMENS IN STAT LAB. Normal [facility] ED Provider Noteson 03-12-20 [employer] Authentication Interface Message Text Normal [facility] FFPon 03-12-2021 BB ORDER ITEM Product status info to follow Normal [facility] Comment on above: Performed By: #### F FO ####[facility] PATHOLOGY [id number] [place], HEPATIC FUNCTION PANELon Albumin [Mass/Vol] 4.2 g/dL Normal 3.4-5.1 [facility] Comment on above: Performed By: #### M G, HEPATIC, TROP I, LIP, CH8 ####[facility] PATHOLOGY [id number] [place], ALK 79 IU/L Normal 40-200 [facility] Comment on above: Performed By: #### M G, HEPATIC, TROP I, LIP, CH8 ####[facility] PATHOLOGY [id number] [place] [address] [place], ALT [Catalytic activity/Vol] 37 U/L Normal 7-40 [facility] Comment on above: Performed By: #### M G, HEPATIC, TROP I, LIP, CH8 ####[facility] PATHOLOGY [id number] [place], AST [Catalytic activity/Vol] 31 U/L Normal 7-40 [facility] Comment on above: Performed By: #### M G, HEPATIC, TROP I, LIP, CH8 ####[facility] PATHOLOGY [id number] [place], Bilirubin [Mass/Vol] 1.8 mg/dL High 0.1-1.5 [facility] Comment on above: Performed By: #### M G, HEPATIC, TROP I, LIP, CH8 ####[facility] PATHOLOGY [id number] [place] [address], Bilirubin.direct [Mass/Vol] 0.40 mg/dL High 0.10-0.30 [facility] Comment on above: Performed By: #### M G, HEPATIC, TROP I, LIP, CH8 ####[facility] PATHOLOGY [id number] [place] [address], Protein [Mass/Vol] 7.4 g/dL Normal 5.7-8.1 [facility] Comment on above: Performed By: #### M G, HEPATIC, TROP I, LIP, CH8 ####[facility] PATHOLOGY [id number] [place], LIPASEon 03-12-2021 LIP 27 IU/L Normal <128 [facility] Comment on above: Performed By: #### M G, HEPATIC, TROP I, LIP, CH8 ####[facility] PATHOLOGY [id number] [place], MAGNESIUMon 03-12-2021 Magnesium [Mass/Vol] 1.9 mg/dL Normal 1.6-2.8 [facility] Comment on above: Performed By: #### M G, HEPATIC, TROP I, LIP, CH8 ####[facility] PATHOLOGY [id number] [place] [address], OP Noteon 03-12-2021 [employer] Authentication Interface Message Text Normal [facility] [employer] Authentication Interface Message Text See detailed note 03/12/2021 in the OR. Normal [facility] PARTIAL THROMBOPLASTIN TIMEo n 03-12-2021 aPTT Coag (Bld) [Time] 38 s High 25-37 Th [facility] Comment on above: Performed By: #### P T, APTT ####S PATHOLOGY [id number] [place], PLASMA STATUSon 03-12-2021 BLOOD PRODUCT CODE [id number] Normal [facility] Comment on above: Performed By: #### F FU ####S PATHOLOGY [id number] [place], BLOOD PRODUCT CODE [id number] Normal [facility] Comment on above: Performed By: #### F FU ####S PATHOLOGY [id number] [place], BLOOD PRODUCT DESCRIPTION FFP Normal [facility] Comment on above: Performed By: #### F FU ####S PATHOLOGY [id number] [place], BLOOD PRODUCT STATUS Transfused Normal [facility] Comment on above: Performed By: #### F FU ####[facility] [id number] [place], BLOOD PRODUCT UNIT INFO [id number] Normal [facility] Comment on above: Performed By: #### F FU ####S PATHOLOGY [id number] [place], BLOOD PRODUCT UNIT INFO [id number] Normal [facility] Comment on above: Performed By: #### F FU ####S PATHOLOGY [id number] [place], BLOOD PRODUCT UNIT TYPE 8400 Normal [facility] Comment on above: Result Comment: AB P os Performed By: #### F FU ####[facility] PATH[facility] [id number] [place], PROTHROMBIN TIME AND INRon 1 INR Coag (PPP) [Relative time] 2.44 {INR} High 0.90-1.10 [facility] Comment on above: Performed By: #### P T, APTT ####S PATHOLOGY [id number] [place], PT Coag (PPP) [Time] 27.3 s High 9.7-12.9 [facility] Comment on above: Performed By: #### P T, APTT ####S PATHOLOGY [id number] [place], Progress Noteson 03-12-2021 [employer] Authentication Interface Message Text Normal [facility] RED BLOOD CELL COMPONENTon 1 BB ORDER ITEM Product status info to follow Normal [facility] Comment on above: Performed By: #### R RUFINO ####[facility] PATH[facility] [id number] [place], RED BLOOD CELL UNIT STATUSon 03-12-2021 BLOOD PRODUCT CODE [id number] Normal [facility] Comment on above: Performed By: #### R BU ####[facility] [id number] [place], BLOOD PRODUCT DESCRIPTION Red Blood Cells Normal [facility] Comment on above: Performed By: #### R BU ####[facility] PATH[facility]Y [id number] [place], BLOOD PRODUCT STATUS Transfused Normal [facility] Comment on above: Performed By: #### R BU ####[facility] PATH[facility] [id number] [place], BLOOD PRODUCT STATUS Released to avail Normal [facility] Comment on above: Performed By: #### R BU ####[facility] PATH[facility] [id number] [place], BLOOD PRODUCT UNIT INFO [id number] Normal [facility] Comment on above: Performed By: #### R BU ####[facility] PATH[facility] [id number] [place], BLOOD PRODUCT UNIT INFO [id number] Normal [facility] Comment on above: Performed By: #### R BU ####[facility] PATH[facility]Y [id number] [place], BLOOD PRODUCT UNIT TYPE 8400 Normal [facility] Comment on above: Result Comment: AB P os Performed By: #### R BU ####S PATHOLOGY [id number] [place], CROSSMATCH INTERPRETATION Compatible (E) Normal [facility] Comment on above: Performed By: #### R BU ####[facility] PATHOLOGY [id number] [place], TROPONIN Ion 03-12-2021 TROP I < 0.030 Normal <0.120 [facility] Comment on above: Result Comment: Rang [...] M G, HEPATIC, TROP I, LIP, CH8 ####[facility] PATHOLOGY [id number] [place], TYPE AND SCREENon 03-12-2021 ABO and Rh group Nom (Bld) Blood group AB Rh(D) positive Normal [facility] Comment on above: Performed By: #### T S ####S PATHOLOGY [id number] [place], ABO and Rh group Nom (Bld) No Previous Results Normal [facility] Comment on above: Performed By: #### T S ####S PATHOLOGY [id number] [place], ABSC INT Negative Normal [facility] Comment on above: Performed By: #### T S ####S PATHOLOGY [id number] [place], XR CHEST 1 VIEW AP OR PAon 1 XR CHEST 1 VIEW AP OR PA Normal [facility] Coumadin Management: Warfari n Calcon 03-29-2017 INR Coag RelTime (Bld) Hospital lab Invalid Interpretation Code [facility] Work Phone: [phone] INR Coag RelTime (Bld) 2.5 to 3.5 Invalid Interpretation Code [facility] Work Phone: [phone] INR Coag RelTime (PPP) 2.5 {INR} Invalid Interpretation Code [facility] Work Phone: [phone] international normalized ratio (INR) range 2.5 to 3.5 Invalid Interpretation Code [facility] Work Phone: [phone] Prothrombin time (PT) Coag time (PPP) 25.9 s Invalid Interpretation Code [facility] Work Phone: [phone] Lab Report: Prothrombin Time w/INRon 03-29-2017 Prothrombin time (PT) Coag time (PPP) 25.9 s High 11.7-14.9 [facility] Work Phone: [phone] Coumadin Management: Anthony hallman Calcon 03-16-2017 INR Coag RelTime (Bld) 2.5 to 3.5 Invalid Interpretation Code [facility] Work Phone: [phone] Coumadin Management: Anthony hallman Calcon 03-15-2017 INR Coag RelTime (Bld) Hospital lab Invalid Interpretation Code [facility] Work Phone: [phone] Prothrombin time (PT) Coag time (PPP) 24.8 s Invalid Interpretation Code [facility] Work Phone: [phone] Lab Report: Prothrombin Time w/INRon 03-15-2017 INR Coag RelTime (PPP) 2.4 {INR} Invalid Interpretation Code [facility] Work Phone: [phone] Prothrombin time (PT) Coag time (PPP) 24.8 s High 11.7-14.9 [facility] Work Phone: [phone] Coumadin Management: Anthony hallman Calcon 03-09-2017 INR Coag RelTime (Bld) Hospital lab Invalid Interpretation Code [facility] Work Phone: [phone] INR Coag RelTime (PPP) 2.1 {INR} Invalid Interpretation Code [facility] Work Phone: international normalized ratio (INR) range 2.5 to 3.5 Invalid Interpretation Code [facility] Work Phone: [phone] Prothrombin time (PT) Coag time (PPP) 22.5 s Invalid Interpretation Code [facility] Work Phone: [phone] Lab Report: Prothrombin Time w/INRon 03-09-2017 Prothrombin time (PT) Coag time (PPP) 22.5 s High 11.7-14.[address] [facility] Work Phone: [phone] Coumadin Management: HourVilleari n Calcon 03-06-2017 INR Coag RelTime (Bld) Fingerstick Invalid Interpretation Code [facility] Work Phone: [phone] INR Coag RelTime (Bld) 2.5 to 3.5 Invalid Interpretation Code [facility] Work Phone: [phone] INR Coag RelTime (PPP) 2.0 {INR} Invalid Interpretation Code [facility] Work Phone: [phone] Prothrombin time (PT) Coag time (PPP) 24.4 s Invalid Interpretation Code [facility] Work Phone: [phone] Coumadin Management: HourVilleari n Calcon 03-02-2017 Coagulation tissue factor induced in platelet poor plasma 19.5 s Invalid Interpretation Code [facility] Work Phone: [phone] INR in blood by coagulation Fingerstick Invalid Interpretation Code [facility] Work Phone: [phone] INR in blood by coagulation 1.6 {INR} Invalid Interpretation Code [facility] Work Phone: [phone] INR in blood by coagulation 2.5 to 3.5 Invalid Interpretation Code [facility] Work Phone: [phone] Coumadin Management: HourVilleari n Calcon 02-21-2017 Coagulation tissue factor induced in platelet poor plasma 0 s Invalid Interpretation Code [facility] Work Phone: INR in blood by coagulation Fingerstick Invalid Interpretation Code [facility] Work Phone: [phone] INR in blood by coagulation 1.6 {INR} Invalid Interpretation Code [facility] Work Phone: [phone] INR in blood by coagulation 2.5 to 3.5 Invalid Interpretation Code [facility] Work Phone: Coumadin Management: HourVillesridevi hallman Calcon 02-13-2017 Coagulation tissue factor induced in platelet poor plasma 0 s Invalid Interpretation Code [facility] Work Phone: INR in blood by coagulation Fingerstick Invalid Interpretation Code [facility] Work Phone: INR in blood by coagulation 2.4 {INR} Invalid Interpretation Code [facility] Work Phone: INR in blood by coagulation 2.5 to 3.5 Invalid Interpretation Code [facility] Work Phone: Coumadin Management: HourVillesridevi hallman Calcon 02-09-2017 INR Coag RelTime (Bld) Fingerstick [facility] Work Phone: INR Coag RelTime (PPP) 2.7 {INR} [facility] Work Phone: international normalized ratio (INR) range 2.5 to 3.5 [facility] Work Phone: Prothrombin time (PT) Coag time (PPP) 32.7 s [facility] Work Phone: Coumadin Management: HourVillesridevi hallman Calcon 02-06-2017 Coagulation tissue factor induced in platelet poor plasma 0 s Invalid Interpretation Code [facility] Work Phone: INR in blood by coagulation Fingerstick Invalid Interpretation Code [facility] Work Phone: INR in blood by coagulation 5.2 {INR} Invalid Interpretation Code [facility] Work Phone: INR in blood by coagulation 2.5 to 3.5 Invalid Interpretation Code [facility] Work Phone: Coumadin Management: HourVillesridevi hallman Calcon 01-29-2017 INR Coag RelTime (Bld) Hospital lab [facility] Work Phone: INR Coag RelTime (PPP) 2.8 {INR} [facility] Work Phone: international normalized ratio (INR) range 2.5 to 3.5 [facility] Work Phone: Prothrombin time (PT) Coag time (PPP) 0 s [facility] Work Phone: [phone] Coumadin Management: Anthony n Calcon 11-08-2016 INR Coag (Bld) [Relative time] Hospital lab Invalid Interpretation Code [facility] Work Phone: [phone] INR Coag (PPP) [Relative time] 2.8 {INR} [facility] Work Phone: [phone] INR in blood by coagulation 2.8 {INR} Invalid Interpretation Code [facility] Work Phone: [phone] INR in blood by coagulation 2.5 to 3.5 Invalid Interpretation Code [facility] Work Phone: [phone] international normalized ratio (INR) range 2.5 to 3.5 [facility] Work Phone: [phone] PT Coag (PPP) [Time] 28.4 s Invalid Interpretation Code [facility] Work Phone: [phone] Lab Report: Prothrombin Time w/INRon 11-08-2016 PT Coag (PPP) [Time] 28.4 s High 11.7-14.[address] [facility] Work Phone: [phone] Office Visit: [facility] 11-09-19 Documentation of current medications (procedure) Done Invalid Interpretation Code [facility] Work Phone: [phone] Fall risk assessment No Invalid Interpretation Code [facility] Work Phone: [phone] Protein mass conc Done Invalid Interpretation Code [facility] Work Phone: [phone] Clinical Lists Update Left ventricular Ejection fraction 65 % Invalid Interpretation Code [facility] Work Phone: [phone] Office Visit: continue on Au gmentin until surgeryon 09-27-2016 Adolescent depression screening assessment Adolescent depression screening assessment Invalid Interpretation Code [facility] Work Phone: Adult depression screening assessment Adolescent depression screening assessment Invalid Interpretation Code [facility] Work Phone: [phone] Documentation of current medications (procedure) Done Invalid Interpretation Code [facility] Work Phone: Coumadin Management: Warfari n Calcon 09-25-2016 Coagulation tissue factor induced in platelet poor plasma 24.7 s Invalid Interpretation Code [facility] Work Phone: [phone] INR in blood by coagulation Hospital lab Invalid Interpretation Code [facility] Work Phone: [phone] INR in blood by coagulation 2.3 {INR} Invalid Interpretation Code [facility] Work Phone: [phone] INR in blood by coagulation 2.5 to 3.5 Invalid Interpretation Code [facility] Work Phone: [phone] Lab Report: Basic Metabolic Profile (BMP)on 09-25-2016 Anion gap 4 mmol/L Low 5-15 [facility] Work Phone: [phone] Anion gap 4 molar conc 4 Low 5-15 [facility] Work Phone: [phone] Anion gap [Moles/Vol] 4 mmol/L Low 5-15 [facility] Work Phone: [phone] BUN/Creatinine Ratio 14.2 RATIO Invalid Interpretation Code 10-20 [facility] Work Phone: Calcium 8.7 mg/dL Invalid Interpretation Code 8.5-10.1 [facility] Work Phone: [phone] Chloride 105 mmol/L Invalid Interpretation Code 98-107 [facility] Work Phone: [phone] CO2 28.0 mmol/L Invalid Interpretation Code 21.0-32.0 [facility] Work Phone: [phone] CO2 (BldV) [Partial pressure] 28.0 mmol/L Invalid Interpretation Code 21.0-32.0 [facility] Work Phone: [phone] Creatinine 1.20 mg/dL Invalid Interpretation Code 0.70-1.30 [facility] Work Phone: [phone] eGFR (non-black) 77 mL/min/{1.73_m2} Invalid Interpretation Code >60 [facility] Work Phone: [phone] eGFR (non-black) 63 mL/min/{1.73_m2} Invalid Interpretation Code >60 [facility] Work Phone: [phone] EST GFR - AA 77 mL/min Invalid Interpretation Code >60 [facility] Work Phone: [phone] Glucose 143 mg/dL High 70-110 [facility] Work Phone: [phone] Glucose [Mass/Vol] 143 mg/dL High 70-110 [facility] Work Phone: [phone] Potassium 4.2 mmol/L Invalid Interpretation Code 3.5-5.1 [facility] Work Phone: Sodium 137 mmol/L Invalid Interpretation Code 136-145 [facility] Work Phone: Urea nitrogen 17 mg/dL Invalid Interpretation Code 7-18 [facility] Work Phone: Lab Report: Prothrombin Time w/INRon 09-25-2016 Coagulation tissue factor induced in platelet poor plasma 24.7 s High 11.7-14.9 [facility] Work Phone: Office Visit: E coli bactere irene/diverticulitis/cystitis/enterovesc. fistulaon 08-07-2016 Adult depression screening assessment Adult depression screening assessment Invalid Interpretation Code [facility] Work Phone: PHQ-9 quick depression assessment panel [Reported.PHQ] Adult depression screening assessment Invalid Interpretation Code [facility] Work Phone: [phone] Tobacco smoking status NHIS Former smoker Invalid Interpretation Code [facility] Work Phone: [phone] Tobacco use CPHS Former smoker Invalid Interpretation Code [facility] Work Phone: Lab Report: Basic Metabolic Profile (BMP)on 08-06-2016 Creatinine 72.20 mL/min Invalid Interpretation Code [facility] Work Phone: Lab Report: Erythrocyte Sed Rateon 08-06-2016 Erythrocyte sedimentation rate 41 mm/h High 0-20 [facility] Work Phone: Replaced Document: (P) CBC W /Diff, Automatedon 08-06-2016 Absolute Neut 9.1 X10 3/UL High 2.0-7.7 [facility] Work Phone: [phone] Basophils/100 leukocytes 0.3 % Invalid Interpretation Code 0-1 [facility] Work Phone: Basophils/100 WBC (Bld) 0.3 % 0-1 [facility] Work Phone: Eosinophils/100 leukocytes 1.5 % Invalid Interpretation Code 0-5 [facility] Work Phone: Eosinophils/100 WBC (Bld) 1.5 % 0-5 [facility] Work Phone: [phone] Erythrocyte distribution width (RBC) [Ratio] 43.4 fL 35.1-43.9 [facility] Work Phone: [phone] Erythrocyte distribution width (RBC) [Ratio] 13.6 % 11.6-14.6 [facility] Work Phone: [phone] Erythrocyte distribution width Auto Ratio (RBC) 43.4 fL Invalid Interpretation Code 35.1-43.9 [facility] Work Phone: Erythrocytes (RBC) 5.09 10*6/uL Invalid Interpretation Code 4.6-6.2 [facility] Work Phone: Hematocrit (Bld) [Volume fraction] 45.0 % 40-54 [facility] Work Phone: [phone] Hematocrit (HCT) 45.0 % Invalid Interpretation Code 40-54 [facility] Work Phone: Hemoglobin (HGB) 15.3 g/dL Invalid Interpretation Code 13.0-16.5 [facility] Work Phone: Immature granulocytes (Bld) [#/Vol] 0.200 % Invalid Interpretation Code 0.0-0.9 [facility] Work Phone: immature granulocytes, percentage of total cells, blood 0.200 % Invalid Interpretation Code 0.0-0.9 [facility] Work Phone: Immature granulocytes/100 WBC (Bld) 0.200 % Invalid Interpretation Code 0.0-0.9 [facility] Work Phone: Lymphocytes 1.40 X10 3/UL Invalid Interpretation Code 0.83-4.51 [facility] Work Phone: Lymphocytes (Bld) [#/Vol] 1.40 X10 3/UL 0.83-4.51 [facility] Work Phone: Lymphocytes/100 leukocytes 11.4 % Low 19-41 [facility] Work Phone: Lymphocytes/100 WBC (Bld) 11.4 % Low 19-41 [facility] Work Phone: [phone] MCH 30.1 pg Invalid Interpretation Code 27.0-32.0 [facility] Work Phone: MCH (RBC) [Entitic mass] 30.1 pg 27.0-32.0 [facility] Work Phone: [phone] MCHC 34.0 G/GL Invalid Interpretation Code 32-36 [facility] Work Phone: MCHC (RBC) [Mass/Vol] 34.0 G/GL 32-36 [facility] Work Phone: [phone] MCV 88.4 fL Invalid Interpretation Code 80-94 [facility] Work Phone: MCV (RBC) [Entitic vol] 88.4 fL 80-94 [facility] Work Phone: [phone] Monocytes/100 leukocytes 12.2 % High 0-10 [facility] Work Phone: Monocytes/100 WBC (Bld) 12.2 % High 0-10 [facility] Work Phone: [phone] neutrophil count, blood 9.1 X10 3/UL High 2.0-7.7 [facility] Work Phone: Neutrophils (Bld) [#/Vol] 9.1 X10 3/UL High 2.0-7.7 [facility] Work Phone: Neutrophils Auto #/vol (Bld) 9.1 X10 3/UL High 2.0-7.7 [facility] Work Phone: Neutrophils/100 leukocytes 74.4 % High 47-70 [facility] Work Phone: Neutrophils/100 WBC (Bld) 74.4 % High 47-70 [facility] Work Phone: [phone] Platelet mean volume (Bld) [Entitic vol] 10.4 fL 6.2-12.0 [facility] Work Phone: [phone] Platelets 306 10*3/mm3 Invalid Interpretation Code 150-450 [facility] Work Phone: Platelets (Bld) [#/Vol] 306 10*3/mm3 150-450 [facility] Work Phone: [phone] PMV by Jojo 10.4 fL Invalid Interpretation Code 6.2-12.0 [facility] Work Phone: [phone] RBC (Bld) [#/Vol] 5.09 10*6/uL 4.6-6.2 [facility] Work Phone: [phone] RDW SD 43.4 fL Invalid Interpretation Code 35.1-43.9 [facility] Work Phone: [phone] RDW-CA 13.6 % Invalid Interpretation Code 11.6-14.6 [facility] Work Phone: [phone] red blood cell distribution width, size density 43.4 fL Invalid Interpretation Code 35.1-43.9 [facility] Work Phone: [phone] WBC (Bld) [#/Vol] 12.2 10*3/uL High 4.4-11.0 [facility] Work Phone: [phone] WBC (Leukocytes) 12.2 10*3/uL High 4.4-11.0 [facility] Work Phone: Lab Report: Lipid Profileon 05-10-2016 Cholesterol 205 mg/dL High 200 [facility] Work Phone: HDL Cholesterol 34 mg/dL Low [facility] Work Phone: LDL Cholesterol 141 mg/dL High 0-130 [facility] Work Phone: Triglyceride 150 mg/dL Invalid Interpretation Code [facility] Work Phone: [phone] very low density lipoproteins 30 mg/dL Invalid Interpretation Code 5-40 [facility] Work Phone: Office Visit: [facility] 05-10-20 16 Dietary management education, guidance, and counseling (procedure) yes Invalid Interpretation Code [facility] Work Phone: Lab Report: (P) Lyme Screen W/Reflex WBon 09-17-2015 Borrelia burgdorferi (Lyme Disease,) DNA 1.07 High 0.00-0.90 [facility] Work Phone: Lab Report: Lyme Screen W/Re flex WBon 09-17-2015 LYME DISEASE INTERPRETATION REF LAB Invalid Interpretation Code [facility] Work Phone: LYME SCN INTERP REF LAB Invalid Interpretation Code [facility] Work Phone: [phone] Lab Report: Rapid Plasmin Re agin (RPR)on 09-17-2015 Reagin Ab VDRL Qn (S) NONREACTIVE Invalid Interpretation Code NONREACTIVE [facility] Work Phone: Reagin antibody presence NONREACTIVE Invalid Interpretation Code NONREACTIVE [facility] Work Phone: Microbiology: Culture, Blood (WB)on 09-17-2015 Bacteria culture BCNo growth in 5 days. Invalid Interpretation Code [facility] Work Phone: Microbiology: Culture, Wound on 09-16-2015 CUW . Invalid Interpretation Code [facility] Work Phone: wound culture . Invalid Interpretation Code [facility] Work Phone: Replaced Document: (P) SAUL w / Reflex Mult Confirmon 09-15-2015 SAUL Titer Negative Invalid Interpretation Code Negative [facility] Work Phone: Nuclear Ab IA Qn (S) Negative Invalid Interpretation Code Negative [facility] Work Phone: Clinical Lists Updateon 09-02 Alanine aminotransferase (ALT) 60 U/L Invalid Interpretation Code [facility] Work Phone: Alkaline phosphatase (ALP) 103 U/L Invalid Interpretation Code [facility] Work Phone: ALP (Bld) [Catalytic activity/Vol] 103 U/L Invalid Interpretation Code [facility] Work Phone: [phone] Aspartate aminotransferase (AST) 34 U/L Invalid Interpretation Code [facility] Work Phone: Bilirubin (total) 0.9 mg/dL Invalid Interpretation Code [facility] Work Phone: Clinical Lists Updateon 09-02 Left ventricular Ejection fraction 53 % Invalid Interpretation Code [facility] Work Phone: Lab Report: CRPon 09-13-2015 C reactive protein (CRP) 4.71 mg/dL High Units converted. See lab report for original value. [facility] Work Phone: Lab Report: Magnesiumon 09-02 Magnesium 1.9 mg/dL Invalid Interpretation Code 1.8-2.4 [facility] Work Phone: Lab Report: CBC W/Diff, Auto matedon 09-11-2015 complete blood count (CBC), comments SLIDE SCANNED Invalid Interpretation Code [facility] Work Phone: Pathologist (cervix/vaginal) May foll Invalid Interpretation Code [facility] Work Phone: SMEAR COMMENT SLIDE SCANNED Invalid Interpretation Code [facility] Work Phone: Lab Report: Liver Profileon 09-11-2015 Albumin 3.5 g/dL Invalid Interpretation Code 3.4-5.0 [facility] Work Phone: Bilirubin (direct) 0.17 mg/dL Invalid Interpretation Code 0.00-0.30 [facility] Work Phone: Globulin 4.2 g/dL High 2.3-3.5 [facility] Work Phone: Globulin (S) [Mass/Vol] 4.2 g/dL High 2.3-3.5 [facility] Work Phone: [phone] Protein 7.7 g/dL Invalid Interpretation Code 6.4-8.2 [facility] Work Phone: Lab Report: Rheumatoid Facto krishan 09-11-2015 rheumatoid factor < 10.0 Invalid Interpretation Code <15 [facility] Work Phone: [phone] Replaced Document: Lyndsey Willard 09-11-2015 Albumin Ql (U) 15 High Negative [facility] Work Phone: [phone] Bilirubin Ql (U) Negative Invalid Interpretation Code Negative [facility] Work Phone: [phone] Ketones (U) [Mass/Vol] Negative Invalid Interpretation Code Negative [facility] Work Phone: [phone] Mucus Ql (Urine sed) RARE [facility] Work Phone: [phone] NITRITE UR Negative Invalid Interpretation Code Negative [facility] Work Phone: [phone] Nitrite Urine Negative Invalid Interpretation Code Negative [facility] Work Phone: [phone] Occult Blood, urine 10 High Negative [facility] Work Phone: [phone] OCCULT BLOOD-UR 10 High Negative [facility] Work Phone: [phone] pH (U) 5.0 [pH] 5.0 - 8.0 [facility] Work Phone: [phone] specific gravity, urine 1.020 Invalid Interpretation Code 1.002-1.030 [facility] Work Phone: Urine, bacteria in sediment RARE /hpf Invalid Interpretation Code None Seen [facility] Work Phone: Urine, bilirubin presence Negative Invalid Interpretation Code Negative [facility] Work Phone: Urine, clarity Sl. Cloudy Invalid Interpretation Code Clear [facility] Work Phone: Urine, color Yellow Invalid Interpretation Code Yellow [facility] Work Phone: Urine, epithelial cells in sediment 0 SEEN Invalid Interpretation Code 0-5 [facility] Work Phone: Urine, erythrocytes in sediment by volume 0-5 SEEN Invalid Interpretation Code 0-5 [facility] Work Phone: Urine, glucose presence Normal mg/dl Invalid Interpretation Code Normal [facility] Work Phone: Urine, ketones presence Negative Invalid Interpretation Code Negative [facility] Work Phone: Urine, leukocyte esterase presence Negative Invalid Interpretation Code Negative [facility] Work Phone: [phone] Urine, mucus presence in sediment RARE Invalid Interpretation Code [facility] Work Phone: [phone] Urine, pH 5.0 [pH] Invalid Interpretation Code 5.0 - 8.0 [facility] Work Phone: Urine, protein 15 mg/dL High Negative [facility] Work Phone: [phone] UROBILI Normal mg/dl Invalid Interpretation Code Normal [facility] Work Phone: [phone] urobilinogen, urine, by dipstick Normal mg/dl Invalid Interpretation Code Normal [facility] Work Phone: WBC 0 SEEN Invalid Interpretation Code 0-5 [facility] Work Phone: [phone] WBC (Bld) [#/Vol] 0 SEEN 0-5 [facility] Work Phone: [phone] WBC (Leukocytes) 0 SEEN Invalid Interpretation Code 0-5 [facility] Work Phone: Office Visit: 6 month F/U, [facility] F/Uon 06-30-2015 Tobacco smoking status NHIS Never Invalid Interpretation Code [facility] Work Phone: Microbiology: Culture, Urine on 06-17-2015 CUUR Urine CultureCulture exhibits no growth. Invalid Interpretation Code [facility] Work Phone: [phone] GE use only - for Link[employer] import when terms are not otherwise specified Urine CultureCulture exhibits no growth. Invalid Interpretation Code [facility] Work Phone: Lab Report: Comprehensive Me tabolic Profilon 06-15-2015 Albumin/Globulin Ratio 0.8 {ratio} Low 0.9-2.4 [facility] Work Phone: Lab Report: Lactic Acidon Lactate 1.3 mmol/L Invalid Interpretation Code 0.4-2.0 [facility] Work Phone: Lab Report: Partial Thrombop last Timeon 06-15-2015 aPTT 45.1 s High 24.1-36.2 [facility] Work Phone: Office Visit: [facility] 04-14-20 15 General cardiovascular disease 10Y risk [#] Mitchell 27 % Invalid Interpretation Code [facility] Work Phone: Replaced Document: [facility] E CG Observationson 04-14-2015 BUN (urea nitrogen) Sinus Rhythm -Right bundle branch block. ABNORMAL Invalid Interpretation Code [facility] Work Phone: EKG QRS axis 24 deg Invalid Interpretation Code [facility] Work Phone: P [place] 90 deg Invalid Interpretation Code [facility] Work Phone: P wave axis, electrocardiogram 90 deg Invalid Interpretation Code [facility] Work Phone: [phone] AK Interval 188 ms Invalid Interpretation Code [facility] Work Phone: [place] interval, electrocardiogram 188 ms Invalid Interpretation Code [facility] Work Phone: Pulse (Heart Rate) 69 /min Invalid Interpretation Code [facility] Work Phone: [phone] QRS axis, electrocardiogram 24 deg Invalid Interpretation Code [facility] Work Phone: QRS Duration 150 ms Invalid Interpretation Code [facility] Work Phone: QRS duration, electrocardiogram 150 ms Invalid Interpretation Code [facility] Work Phone: QT Interval new path ms Invalid Interpretation Code [facility] Work Phone: QT interval, electrocardiogram new path ms Invalid Interpretation Code [facility] Work Phone: T [place] 41 deg Invalid Interpretation Code [facility] Work Phone: T wave axis, electrocardiogram 41 deg Invalid Interpretation Code [facility] Work Phone: [phone] Urea nitrogen [Mass/Vol] Sinus Rhythm -Right bundle branch block. ABNORMAL [facility] Work Phone: Office Visiton 10-12-2014 cardiac risk group B Invalid Interpretation Code [facility] Work Phone: Lab Report: B12on 08-27-2013 Cobalamin (Vitamin B12) [Mass/Vol] 794 pg/mL Normal 211-911 [facility] Work Phone: [phone] vitamin b12, serum 794 pg/mL Normal 211-911 [facility] Work Phone: Lab Report: CBCDon Absolute Neutrophil count 8.8 X10 3/UL High 2.0-7.7 [facility] Work Phone: ANC 8.8 X10 3/UL High 2.0-7.7 [facility] Work Phone: [phone] Lab Report: TSHon 08-26-2013 Thyroid stimulating hormone (TSH) 2.26 u[iU]/mL Normal 0.358-3.74 [facility] Work Phone: Lab Report: T4on 12-18-2011 Thyroxine (T4) 8.1 ug/dL Normal 4.5-12.1 [facility] Work Phone: Replaced Document: [facility] E CG Observationson 12-11-2011 Pulse (Heart Rate) 446 ms Invalid Interpretation Code [facility] Work Phone: Vital Signs Date Time Vital Sign Value Performing Clinician Facility 08-10-2023 13:30-0500 Diastolic blood pressure 57 mm[Hg] Wiley Covington MD Work Phone: [facility] 08-10-2023 13:30-0500 Heart rate 77 /min Wiley Covington MD Work Phone: [facility] 08-10-2023 13:30-0500 Respiratory rate 20 /min Wiley Covington MD Work Phone: [facility] 08-10-2023 13:30-0500 SaO2% (BldA) [Mass fraction] 94 % Wiley Covington MD Work Phone: [facility] 08-10-2023 13:30-0500 Systolic blood pressure 113 mm[Hg] Wiley Covington MD Work Phone: [facility] 06-19-2023 10:31-0500 Body temperature 98.01 [degF] Wiley Covington MD Work Phone: [facility] 06-19-2023 10:31-0500 Diastolic blood pressure 56 mm[Hg] Wiley Covington MD Work Phone: [phone] [address] 06-19-2023 10:31-0500 Heart rate 55 /min Wiley Covington MD Work Phone: [phone] [address] 06-19-2023 10:31-0500 Respiratory rate 18 /min Wiley Covington MD Work Phone: [phone] [address] 06-19-2023 10:31-0500 SaO2% (BldA) [Mass fraction] 100 % Wiley Covington MD Work Phone: [phone] [address] 06-19-2023 10:31-0500 Systolic blood pressure 116 mm[Hg] Wiley Covington MD Work Phone: [phone] [address] 06-17-2023 05:49-0500 Body mass index (BMI) [Ratio] 28.84 kg/m2 Wiley Covington MD Work Phone: [phone] [address] 06-17-2023 05:49-0500 Body weight 96.45 kg Wiley Covington MD Work Phone: [phone] [place] [address] Comment on above: Standing 06-06-2023 23:07-0500 Body height 182.9 cm Wiley Covington MD Work Phone: [phone] [address] Comment on above: estimated 11-08-2016 07:36-0400 BMI (Body Mass Index) 31.35 kg/m2 [facility] Work Phone: 11-08-2016 07:36-0400 BP Diastolic 68 mm[Hg] [facility] Work Phone: 11-08-2016 07:36-0400 BP Systolic 130 mm[Hg] Renee Jade RN [facility] Work Phone: 11-08-2016 07:36-0400 Height 187.96 cm Renee Jade RN [facility] Work Phone: 11-08-2016 07:36-0400 Pulse (Heart Rate) 76 /min Renee Jade RN [facility] Work Phone: 11-08-2016 07:36-0400 Respiratory Rate 20 /min Renee Jade RN [facility] Work Phone: 11-08-2016 07:36-0400 Weight 110.77 kg Renee Jade RN [facility] Work Phone: 09-27-2016 09:41-0400 BMI (Body Mass Index) 30.96 kg/m2 Jovana Signs MD [facility] Work Phone: 09-27-2016 09:41-0400 Body Temperature 97.5 [degF] Jovana Signs MD [facility] Work Phone: 09-27-2016 09:41-0400 Body weight 109.41 kg Renee Jade RN [facility] Work Phone: 09-27-2016 09:41-0400 BP Diastolic 71 mm[Hg] Jovana Signs MD [facility] Work Phone: 09-27-2016 09:41-0400 BP Systolic 113 mm[Hg] Jovana Signs MD [facility] Work Phone: 09-27-2016 09:41-0400 Height 187.96 cm Jovana Signs MD [facility] Work Phone: 09-27-2016 09:41-0400 Pulse (Heart Rate) 63 /min Jovana Signs MD [facility] Work Phone: 09-27-2016 09:41-0400 Pulse Oximetry 97 % Jovana Signs MD [facility] Work Phone: 09-27-2016 09:41-0400 Respiratory Rate 20 /min Jovana Signs MD [facility] Work Phone: 09-27-2016 09:41-0400 Weight 109.41 kg Jovana Signs MD [facility] Work Phone: 08-06-2016 15:38-0500 Body surface area Derived from formula 72.20 mL/min Renee Jade RN [facility] Work Phone: 05-10-2016 13:44-0500 BSA (Body Surface Area) 2.34 m2 Jovana Signs MD [facility] Work Phone: 04-14-2015 13:10-0500 Heart rate 69 /min Renee Jade RN [facility] Work Phone: 12-11-2011 13:40-0400 Heart rate 446 ms Renee Jade RN [facility] Work Phone: 06-12-2011 13:43-0500 BP Diastolic 62 mm[Hg] Jovana Signs MD [facility] Work Phone: 06-12-2011 13:43-0500 BP Systolic 130 mm[Hg] Jovana Signs MD [facility] Work Phone: Encounters Encounter Date Encounter Type Care Provider Facility Start: 03-30-2025 ambulatory [facility] Facility: [facility] Start: 02-27-2025 End: 02-27-2025 Emergency department patient visit Reina Carey Facility:[facility] Start: 01-02-2025 ambulatory Kuldeep Austin SEAL MIXING OPERATOR Facility :[facility] Start: 12-16-2024 End: 12-16-2024 ambulatory [facility] [place] Start: 12-16-2024 End: 12-16-2024 ambulatory Kuldeep Austin SEAL MIXING OPERATOR Facility:[facility] Start: 11-10-2024 End: 11-10-2024 ambulatory Kuldeep Austin SEAL MIXING OPERATOR [place] Start: 11-10-2024 End: 11-10-2024 ambulatory Kuldeep Austin SEAL MIXING OPERATOR Facility:[facility] Start: 10-11-2024 End: 10-11-2024 Emergency department patient visit Louie Burns Facility:[facility] Start: 09-26-2024 ambulatory Louie Burns Facility: [facility] Start: 08-25-2024 ambulatory Louie Burns Facility: [facility] Start: 08-23-2024 ambulatory Krys Bull Facility :[facility] Start: 08-23-2024 End: 08-27-2024 Evaluation and management of inpatient Krys Bull Facility:[facility] Start: 07-11-2024 End: 07-11-2024 ambulatory Louie Burns Facility:[facility] Start: 06-17-2024 ambulatory LOUIE BURNS Facilit y:[facility] Start: 05-09-2024 End: 05-09-2024 Emergency department patient visit Louie uBrns Facility:[facility] Start: 11-29-2023 ambulatory ASHA T BREDEHOEFT Facil ity:[facility] Start: 08-16-2023 ambulatory ASHA T BREDEHOEFT Facil ity:[facility] Start: 08-10-2023 ambulatory LOUIE BURNS Facilit y:[facility] Start: 08-10-2023 End: 08-10-2023 Subsequent hospital visit by physician Wiley Covington MD Work Phone: [facility] Comment on above: Arrived Start: 06-06-2023 End: 06-19-2023 Evaluation and management of inpatient Deangelo Ley MD Work Phone: Comment on above: Endocarditis Start: 04-20-2021 ambulatory LOUIE BURNS Facili ty:[facility] Start: 03-29-2021 End: 04-05-2021 Evaluation and management of inpatient LOUIE BURNS Facility:[facility] Start: 03-29-2021 End: 03-29-2021 ambulatory LUIS DYER Facility:[facility] Start: 03-24-2021 ambulatory LOUIE BURNS Facili ty:[facility] Start: 03-23-2021 ambulatory KULDEEP PAINTING Facility: [facility] Start: 03-22-2021 ambulatory KULDEEP PAINTING Facility: [facility] Start: 03-19-2021 ambulatory LUIS JAILYN Facility :[facility] Start: 03-18-2021 ambulatory LUIS JAILYN Facility :[facility] Start: 03-16-2021 ambulatory UNKNOWN PROVIDER Facili ty:[facility] Start: 03-14-2021 ambulatory UNKNOWN PROVIDER Facili ty:[facility] Start: 03-13-2021 ambulatory UNKNOWN PROVIDER Facili ty:[facility] Start: 03-13-2021 End: 03-29-2021 Evaluation and management of inpatient LUIS DYER Facility:[facility] Start: 03-12-2021 ambulatory UNKNOWN PROVIDER Facili ty:[facility] Start: 09-28-2016 End: 09-29-2016 [facility] Procedures Date Procedure Procedure Detail Performing Clinician Start: 06-17-2024 Follow-up visit Follow-up DYANA CHAPMAN Start: 08-10-2023 Transesophageal echocardiography Wiley Covington [...] 06-15-2023 Assay of magnesium Shirley M Rossi ALTERATION MANAGER-SALVAGE MECHANIC Work Phone: Start: 06-14-2023 CONTINUOUS CARDIAC MONITORING STRIP Other Other Start: 06-14-2023 Thromboplastin time partial plasma/whole blood Heike Milan MD Work Phone: Start: 06-14-2023 CONTINUOUS CARDIAC MONITORING STRIP Other Other Start: 06-14-2023 Radiologic exam chest single view Wiley Covington MD Work Phone: Start: 06-14-2023 Assay of magnesium Shirley M Rossi ALTERATION MANAGER-SALVAGE MECHANIC Work Phone: Start: 06-13-2023 CONTINUOUS CARDIAC MONITORING STRIP Other Other Start: 06-13-2023 Thromboplastin time partial plasma/whole blood Heike Milan MD Work Phone: Start: 06-13-2023 Drug screen quantitative gentamicin Haley M Timoteo [facility] Start: 06-13-2023 Blood count platelet automated Heike Milan MD Work Phone: Start: 06-13-2023 Thromboplastin time partial plasma/whole blood Heike Milan MD Work Phone: Start: 06-13-2023 Assay of magnesium Shirley M Rossi ALTERATION MANAGER-SALVAGE MECHANIC Work Phone: Start: 06-12-2023 Drug screen quantitative gentamicin Rigoberto Landon [facility] Start: 06-12-2023 Thromboplastin time partial [...] Phone: Start: 06-11-2023 Assay of magnesium Katiana A Deborah TORRES Work Phone: Start: 06-10-2023 Thromboplastin time partial plasma/whole blood Heike Milan MD Work Phone: Start: 06-10-2023 Drug screen quantitative gentamicin Kelvin Luis Angel Gisselle [facility] Work Phone: Start: 06-10-2023 Thromboplastin time partial plasma/whole blood Heike Milan MD Work Phone: Start: 06-10-2023 Thromboplastin time partial plasma/whole blood Heike Milan MD Work Phone: Start: 06-10-2023 Assay of magnesium Katiana A Deborah TORRES Work Phone: Start: 06-09-2023 Blood count platelet automated Heike Milan MD Work Phone: Start: 06-09-2023 CONTINUOUS CARDIAC MONITORING STRIP Other Other Start: 06-09-2023 Thromboplastin time partial plasma/whole blood Heike Milan MD Work Phone: Start: 06-09-2023 Assay of magnesium Katiana A Deborah TORRES Work Phone: Start: 06-08-2023 Thromboplastin time partial [...] Phone: Start: 06-08-2023 Drug screen quantitative gentamicin Ras J Vulvara [facility] Start: 06-07-2023 Thromboplastin time partial [...] 11-08-2016 End: 11-08-2016 Follow Up Appt Other Reene krishnamurthy PA-C Work Phone: Start: 11-08-2016 End: [...] Follow Up Appt 1 year Louie Hedrick CARROTING MACHINE OPERATOR-C Start: 05-10-2016 End: 05-10-2016 Follow Up Appt 6 months Louie Jailene Hedrick CARROTING MACHINE OPERATOR -C Start: 05-10-2016 End: 05-10-2017 INR in Platelet poor plasma by Coagulation assay Louie Jeffder CARROTING MACHINE OPERATOR-C Start: 05-10-2016 End: 05-11-2016 Lipid 1996 panel - Serum or Plasma Louie Jeffder CARROTING MACHINE OPERATOR-C Start: 05-10-2016 End: 05-10-2016 MMM Louie Jeffder CARROTING MACHINE OPERATOR-C Start: 05-10-2016 End: 05-10-2016 PFM Louie Jeffder CARROTING MACHINE OPERATOR-C Start: 05-10-2016 End: 05-10-2016 Dietary management education, guidance, and counseling Renee Jade RN Start: 05-10-2016 End: 05-10-2017 Coagulation factor induced.INR assay in platelet poor plasma Louie Hedrick CARROTING MACHINE OPERATOR-C Start: 05-10-2016 End: 05-10-2016 Follow Up Appt 1 year Louie Hedrick CARROTING MACHINE OPERATOR-C Start: 05-10-2016 End: 05-10-2016 Follow Up Appt 6 months Louie Hedrick CARROTING MACHINE OPERATOR -C Start: 05-10-2016 End: 05-11-2016 Lipid panel [AGGREGATE] Louie Hedrick CARROTING MACHINE OPERATOR -C Start: 05-10-2016 End: 05-10-2016 MMM Louie Hedrick CARROTING MACHINE OPERATOR-C Start: 05-10-2016 End: 05-10-2016 PFM Louie Hedrick CARROTING MACHINE OPERATOR-C Start: 11-08-2015 End: 11-08-2015 Follow Up Appt [...] 10-12-2014 End: 10-13-2014 Documentation of current medications Marksu Tran MD Start: 10-12-2014 End: 10-12-2014 Follow Up Appt 6 months Markus Tran MD Start: 10-12-2014 End: 05-03-2016 Lipid 1996 panel - Serum or Plasma Markus Tran MD Start: 10-12-2014 End: 10-12-2014 MMM Markus Tran MD Start: 10-12-2014 End: 05-03-2016 *Hepatic Function Panel Markus Tran MD Start: 10-12-2014 End: 10-13-2014 Documentation of current medications Markus Tran MD Start: 10-12-2014 End: 10-12-2014 Follow Up Appt 6 months Markus Tran MD Start: 10-12-2014 End: 05-03-2016 Lipid panel [AGGREGATE] Markus Tran MD Start: 10-12-2014 End: 10-12-2014 MMM Markus Tran MD Start: 02-23-2014 End: 02-23-2014 [...] Markus Tran MD Start: 08-20-2013 End: 08-20-2013 ANNM Markus Tran MD Start: 08-20-2013 End: 04-14-2015 *Hepatic Function Panel Markus Tran MD Start: 08-20-2013 End: 08-20-2013 Follow Up Appt 6 months Markus Tran MD Start: 08-20-2013 End: 04-14-2015 Lipid panel [AGGREGATE] Markus Trna MD Start: 08-20-2013 End: 08-20-2013 MMM Markus Tarn MD Start: 01-16-2013 End: 08-20-2013 Echocardiography Markus [...] EDT Office Visit [facility] [address] [place] [address] Titi Sabillon MD (John) [address] [place] [address] [facility] Start: 08-16-2023 End: 08-16-2023 Telemedicine consultation with patient 08/16/2023 10:30 AM EDT Telemedicine Infectious Diseases Care [facility] [address] [place] [address], [place] [phone] Asha Bundy MD [address] [place] [address], [place] [phone] Infectious Diseases Care [facility] Start: 08-02-2023 End: 08-02-2023 Patient encounter procedure 08/02/2023 10:00 AM EST Office Visit Infect[facility] [address] [place] [address], [place] [phone] Asha Bundy MD [address] [place] [phone] Infectious [facility] Start: 07-30-2023 End: 07-30-2023 Patient encounter procedure 07/30/2023 10:00 AM EST Office Visit [facility] [address] [place] [phone] Titi Sabillon MD (John) [address] [place] [phone] [facility] Start: 07-26-2023 End: 07-26-2023 Patient encounter procedure 07/26/2023 11:00 AM EST Appointment Cardiovascular Imaging Lab [facility] [address] [place] [id number] Wiley Covington MD [address] [place], [place] [id number] [place] [id number] Cardiovascular Imaging Lab [facility] Start: 07-23-2023 End: 08-10-2023 Transesophageal echocardiography ECHOCARDIOGRAM TRANSESOPHAGEAL (FER) Echocardiography Routine Acute bacterial endocarditis Expected: 07/23/2023, Expires: 08/10/2023 [facility] Work Phone: Comment on above: Expected: 07/23/2023, Expires: 4 Start: 06-15-2023 End: 06-15-2024 Transesophageal echocardiography ECHOCARDIOGRAM TRANSESOPHAGEAL (FER) Echocardiography Routine Acute bacterial endocarditis Expected: 06/15/2023, Expires: 06/15/2024 [facility] Comment on above: Expected: 06/15/2023, Expires: 5 Start: 05-25-2017 End: 05-25-2017 Appointment Appointment [facility] Work Phone: Start: 05-14-2017 End: 05-14-2017 Appointment Appointment [facility] Work Phone: Start: 05-14-2017 End: 05-14-2017 Appointment Appointment [facility] Work Phone: Start: 05-10-2017 End: 05-11-2016 *Hepatic Function Panel *Hepatic Function Panel [facility] Work Phone: Start: 05-10-2017 End: 05-11-2016 Lipid panel [AGGREGATE] *Lipid Profile CC PCP [facility] Work Phone: Start: 05-10-2017 End: 05-11-2016 *Hepatic Function Panel *Hepatic Function Panel [facility] Work Phone: Start: 05-10-2017 End: 05-11-2016 Lipid panel [AGGREGATE] *Lipid Profile CC PCP [facility] Work Phone: Start: 11-08-2016 End: 11-08-2016 Follow Up Appt Other Follow Up Appt Other [facility] Work Phone: Start: 11-08-2016 End: 11-08-2016 INR Coag RelTime (PPP) *PT/INR - Standing Order [facility] Work Phone: Start: 11-08-2016 End: 11-08-2016 Appointment Appointment [facility] Work Phone: Start: 11-08-2016 End: 11-08-2016 Appointment Appointment [facility] Work Phone: Start: 11-08-2016 End: 11-08-2016 Coagulation factor induced.INR assay in platelet poor plasma *PT/INR - Standing Order [facility] Work Phone: Start: 11-08-2016 End: 11-08-2016 Follow Up Appt Other Follow Up Appt Other [facility] Work Phone: Start: 05-10-2016 End: 05-10-2016 Follow Up Appt 1 year Follow Up Appt 1 year [facility] Work Phone: Start: 05-10-2016 End: 05-10-2016 Follow Up Appt 6 months Follow Up Appt 6 months [facility] Work Phone: Start: 05-10-2016 End: 09-25-2016 INR Coag RelTime (PPP) [facility] Work Phone: Start: 05-10-2016 End: 05-11-2016 Lipid panel [AGGREGATE] *Lipid Profile CC PCP [facility] Work Phone: Start: 05-10-2016 End: 05-10-2016 MMM MMM [facility] Work Phone: Start: 05-10-2016 End: 05-10-2016 PFM PFM [facility] Work Phone: Start: 05-10-2016 End: 09-25-2016 Coagulation factor induced.INR assay in platelet poor plasma [facility] Work Phone: Start: 05-10-2016 End: 05-10-2016 Follow Up Appt 1 year Follow Up Appt 1 year [facility] Work Phone: Start: 05-10-2016 End: 05-10-2016 Follow Up Appt 6 months Follow Up Appt 6 months [facility] Work Phone: Start: 05-10-2016 End: 05-11-2016 Lipid panel [AGGREGATE] *Lipid Profile CC PCP [facility] Work Phone: Start: 05-10-2016 End: 05-10-2016 MMM MMM [facility] Work Phone: Start: 05-10-2016 End: 05-10-2016 PFM PFM [facility] Work Phone: Start: 11-08-2015 End: 11-08-2015 Follow Up Appt 6 months Follow Up Appt 6 months [facility] Work Phone: Start: 11-08-2015 End: 11-08-2015 MMM MMM [facility] Work Phone: Start: 11-08-2015 End: 11-08-2015 Follow Up Appt 6 months Follow Up Appt 6 months [facility] Work Phone: Start: 11-08-2015 End: 11-08-2015 MMM MMM [facility] Work Phone: Start: 06-08-2015 Pneumococcal vaccination PNEUMOCOCCAL VACCINE SERIES (2 of 2 - PCV) [facility] Start: 04-14-2015 End: 04-14-2015 *CBC with Differential *CBC with Differential [facility] Work Phone: Start: 04-14-2015 End: 04-14-2015 Ecg routine ecg w/least 12 lds w/i&r EKG (In office) [facility] Work Phone: Start: 04-14-2015 End: 04-14-2015 Follow Up Appt 6 months Follow Up Appt 6 months [facility] Work Phone: Start: 04-14-2015 End: 04-14-2015 INR Coag RelTime (PPP) *PT/INR - Standing Order [facility] Work Phone: Start: 04-14-2015 End: 04-14-2015 PFM PFM [facility] Work Phone: Start: 04-14-2015 End: 04-14-2015 *CBC with Differential *CBC with Differential [facility] Work Phone: Start: 04-14-2015 End: 04-14-2015 Coagulation factor induced.INR assay in platelet poor plasma *PT/INR - Standing Order [facility] Work Phone: Start: 04-14-2015 End: 04-14-2015 Electrocardiogram, complete EKG (In office) [facility] Work Phone: Start: 04-14-2015 End: 04-14-2015 Follow Up Appt 6 months Follow Up Appt 6 months [facility] Work Phone: Start: 04-14-2015 End: 04-14-2015 PFM PFM [facility] Work Phone: Start: 10-12-2014 End: 05-03-2016 *Hepatic Function Panel *Hepatic Function Panel [facility] Work Phone: Start: 10-12-2014 End: 10-12-2014 Follow Up Appt 6 months Follow Up Appt 6 months [facility] Work Phone: Start: 10-12-2014 End: 05-03-2016 Lipid panel [AGGREGATE] *Lipid Profile CC PCP [facility] Work Phone: Start: 10-12-2014 End: 10-12-2014 MMM MMM [facility] Work Phone: Start: 10-12-2014 End: 05-03-2016 *Hepatic Function Panel *Hepatic Function Panel [facility] Work Phone: Start: 10-12-2014 End: 10-12-2014 Follow Up Appt 6 months Follow Up Appt 6 months [facility] Work Phone: Start: 10-12-2014 End: 05-03-2016 Lipid panel [AGGREGATE] *Lipid Profile CC PCP [facility] Work Phone: Start: 10-12-2014 End: 10-12-2014 MMM MMM [facility] Work Phone: Start: 02-23-2014 End: 02-23-2014 Follow Up Appt 6 months Follow Up Appt 6 months [facility] Work Phone: Start: 02-23-2014 End: 02-23-2014 INR Coag RelTime (PPP) *PT/INR - Standing Order [facility] Work Phone: Start: 02-23-2014 End: 02-23-2014 PFM PFM [facility] Work Phone: Start: 02-23-2014 End: 02-23-2014 Coagulation factor induced.INR assay in platelet poor plasma *PT/INR - Standing Order [facility] Work Phone: Start: 02-23-2014 End: 02-23-2014 Follow Up Appt 6 months Follow Up Appt 6 months [facility] Work Phone: Start: 02-23-2014 End: 02-23-2014 PFM PFM [facility] Work Phone: Start: 08-20-2013 End: 04-14-2015 *Hepatic Function Panel *Hepatic Function Panel [facility] Work Phone: Start: 08-20-2013 End: 08-20-2013 Follow Up Appt 6 months Follow Up Appt 6 months [facility] Work Phone: Start: 08-20-2013 End: 04-14-2015 Lipid panel [AGGREGATE] *Lipid Profile CC PCP [facility] Work Phone: Start: 08-20-2013 End: 08-20-2013 MMM MMM [facility] Work Phone: Start: 08-20-2013 End: 04-14-2015 *Hepatic Function Panel *Hepatic Function Panel [facility] Work Phone: Start: 08-20-2013 End: 08-20-2013 Follow Up Appt 6 months Follow Up Appt 6 months [facility] Work Phone: Start: 08-20-2013 End: 04-14-2015 Lipid panel [AGGREGATE] *Lipid Profile CC PCP [facility] Work Phone: Start: 08-20-2013 End: 08-20-2013 MMM MMM [facility] Work Phone: Start: 01-16-2013 End: 01-16-2013 Echocardiography Echocardiogram (complete) [facility] Work Phone: Start: 01-16-2013 End: 01-16-2013 Follow Up Appt 6 months Follow Up Appt 6 months [facility] Work Phone: Start: 01-16-2013 End: 08-20-2013 Follow Up Appt Other Follow Up Appt Other [facility] Work Phone: Start: 01-16-2013 End: 01-17-2013 INR Coag RelTime (PPP) *PT/INR [facility] Work Phone: Start: 01-16-2013 End: 01-16-2013 PFM PFM [facility] Work Phone: Start: 01-16-2013 End: 01-17-2013 Coagulation factor induced.INR assay in platelet poor plasma *PT/INR [facility] Work Phone: Start: 01-16-2013 End: 01-16-2013 Echocardiography Echocardiogram (complete) [facility] Work Phone: Start: 01-16-2013 End: 01-16-2013 Follow Up Appt 6 months Follow Up Appt 6 months [facility] Work Phone: Start: 01-16-2013 End: 08-20-2013 Follow Up Appt Other Follow Up Appt Other [facility] Work Phone: Start: 01-16-2013 End: 01-16-2013 PFM PFM [facility] Work Phone: Start: 11-25-2012 End: 02-23-2014 INR Coag RelTime (PPP) *PT/INR - Standing Order [facility] Work Phone: Start: 11-25-2012 End: 02-23-2014 Coagulation factor induced.INR assay in platelet poor plasma *PT/INR - Standing Order [facility] Work Phone: Start: 09-18-2012 End: 08-20-2013 *Hepatic Function Panel *Hepatic Function Panel [facility] Work Phone: Start: 09-18-2012 End: 08-20-2013 Lipid panel [AGGREGATE] *Lipid Profile [facility] Work Phone: Start: 09-18-2012 End: 08-20-2013 *Hepatic Function Panel *Hepatic Function Panel [facility] Work Phone: Start: 09-18-2012 End: 08-20-2013 Lipid panel [AGGREGATE] *Lipid Profile [facility] Work Phone: Start: 06-10-2012 End: 06-10-2012 Echocardiography Echocardiogram (complete) [facility] Work Phone: Start: 06-10-2012 End: 06-10-2012 Follow Up Appt 6 months Follow Up Appt 6 months [facility] Work Phone: Start: 06-10-2012 End: 06-10-2012 Echocardiography Echocardiogram (complete) [facility] Work Phone: Start: 06-10-2012 End: 06-10-2012 Follow Up Appt 6 months Follow Up Appt 6 months [facility] Work Phone: Start: 04-04-2012 End: 06-10-2012 *Hepatic Function Panel *Hepatic Function Panel [facility] Work Phone: Start: 04-04-2012 End: 06-10-2012 Lipid panel [AGGREGATE] *Lipid Profile [facility] Work Phone: Start: 04-04-2012 End: 06-10-2012 *Hepatic Function Panel *Hepatic Function Panel [facility] Work Phone: Start: 04-04-2012 End: 06-10-2012 Lipid panel [AGGREGATE] *Lipid Profile [facility] Work Phone: Start: 02-26-2012 End: 06-06-2012 *Hepatic Function Panel *Hepatic Function Panel [facility] Work Phone: Start: 02-26-2012 End: 06-06-2012 *Hepatic Function Panel *Hepatic Function Panel [facility] Work Phone: Start: 12-11-2011 End: 12-18-2011 *BMP *BMP [facility] Work Phone: Start: 12-11-2011 End: 12-18-2011 *CBC with Differential *CBC with Differential [facility] Work Phone: Start: 12-11-2011 End: 12-18-2011 *Hepatic Function Panel *Hepatic Function Panel [facility] Work Phone: Start: 12-11-2011 End: 12-18-2011 Ct thorax w/contrast material CT Chest with Contrast [facility] Work Phone: Start: 12-11-2011 End: 12-11-2011 Ecg routine ecg w/least 12 lds w/i&r EKG (In office) [facility] Work Phone: Start: 12-11-2011 End: 12-11-2011 Follow Up Appt 6 months Follow Up Appt 6 months [facility] Work Phone: Start: 12-11-2011 End: 12-18-2011 Lipid panel [AGGREGATE] *Lipid Profile [facility] Work Phone: Start: 12-11-2011 End: 12-18-2011 Magnesium *Magnesium [facility] Work Phone: Start: 12-11-2011 End: 12-18-2011 Thyroid stimulating hormone (TSH) *TSH [facility] Work Phone: Start: 12-11-2011 End: 12-18-2011 Thyroxine (T4) *T4 (Total) [facility] Work Phone: Start: 12-11-2011 End: 12-18-2011 *BMP *BMP [facility] Work Phone: Start: 12-11-2011 End: 12-18-2011 *CBC with Differential *CBC with Differential [facility] Work Phone: Start: 12-11-2011 End: 12-18-2011 *Hepatic Function Panel *Hepatic Function Panel [facility] Work Phone: Start: 12-11-2011 End: 12-18-2011 Ct thorax w/dye CT Chest with Contrast [facility] Work Phone: Start: 12-11-2011 End: 12-11-2011 Electrocardiogram, complete EKG (In office) [facility] Work Phone: Start: 12-11-2011 End: 12-11-2011 Follow Up Appt 6 months Follow Up Appt 6 months [facility] Work Phone: Start: 12-11-2011 End: 12-18-2011 Lipid panel [AGGREGATE] *Lipid Profile [facility] Work Phone: Start: 12-11-2011 End: 12-18-2011 Magnesium *Magnesium [facility] Work Phone: Start: 12-11-2011 End: 12-18-2011 Thyroid stimulating hormone (TSH) *TSH [facility] Work Phone: Start: 12-11-2011 End: 12-18-2011 Thyroxine (T4) *T4 (Total) [facility] Work Phone: Start: 06-12-2011 End: 12-18-2011 *BMP *BMP [facility] Work Phone: Start: 06-12-2011 End: 12-18-2011 *CBC with Differential *CBC with Differential [facility] Work Phone: Start: 06-12-2011 End: 12-18-2011 *Hepatic Function Panel *Hepatic Function Panel [facility] Work Phone: Start: 06-12-2011 End: 06-12-2011 Echocardiography Echocardiogram (complete) [facility] Work Phone: Start: 06-12-2011 End: 06-12-2011 Follow Up Appt 6 months Follow Up Appt 6 months [facility] Work Phone: Start: 06-12-2011 End: 12-18-2011 Lipid panel [AGGREGATE] *Lipid Profile [facility] Work Phone: Start: 06-12-2011 End: 12-18-2011 *BMP *BMP [facility] Work Phone: Start: 06-12-2011 End: 12-18-2011 *CBC with Differential *CBC with Differential [facility] Work Phone: Start: 06-12-2011 End: 12-18-2011 *Hepatic Function Panel *Hepatic Function Panel [facility] Work Phone: Start: 06-12-2011 End: 06-12-2011 Echocardiography Echocardiogram (complete) [facility] Work Phone: Start: 06-12-2011 End: 06-12-2011 Follow Up Appt 6 months Follow Up Appt 6 months [facility] Work Phone: Start: 06-12-2011 End: 12-18-2011 Lipid panel [AGGREGATE] *Lipid Profile [facility] Work Phone: Start: 11-24-2005 Screening for malignant neoplasm of colon COLORECTAL CANCER SCREENING DISCUSSION [facility] Start: 1995 Zoster vaccine hzv live for subcutaneous use ZOSTER (SHINGLES) VACCINE (1 of 2) [facility] Start: 1964 Third diphtheria, tetanus and acellular pertussis (DTaP) vaccination TDAP (ADULT) [facility] Start: 1945 Tetanus vaccination TETANUS [facility] End: 06-15-2024 BMP WITHOUT GLUCOSE BMP WITHOUT GLUCOSE Lab Routine Acute bacterial endocarditis Twice a Week for 6 Occurrences starting 06/15/2023 until 06/15/2024 [facility] Comment on above: Twice a Week for 6 Occurrences starting 06/15/2023 until 06/15/2024 CHEM 6 (LYTES, BUN CREA) CHEM 6 (LYTES, BUN CREA) Lab Routine Every Mon in the AM Lab until discontinued starting 06/18/2023, 1 completed [facility] Comment on above: Every Mon in the AM Lab until discontinu ed starting 06/18/2023, 1 completed End: 06-15-2024 Complete blood count with white cell differential, automated CBC, EDIF, PLATELET Lab Routine Acute bacterial endocarditis Once a week for 6 Occurrences starting 06/15/2023 until 06/15/2024 [facility] Comment on above: Once a week for 6 Occurrences starting 0 06/15/2023 until 06/15/2024 End: 06-15-2024 Hepatic function 2000 panel - Serum or Plasma HEPATIC FUNCTION PANEL Lab Routine Acute bacterial endocarditis Once a week for 6 Occurrences starting 06/15/2023 until 06/15/2024 [facility] Comment on above: Once a week for 6 Occurrences starting 0 06/15/2023 until 06/15/2024 LAB INSTRUCTIONS LAB INSTRUCTION S Lab Routine Acute bacterial endocarditis Ordered: 06/15/2023 [facility] Comment on above: Ordered: 06/15/2023 Magnesium [Mass/volu me] in Serum or Plasma MAGNESIUM Lab Routine UD PRN until discontinued starting 06/06/2023, 1 completed [facility] Comment on above: UD PRN until discontinued starting 06/06, 1 completed Magnesium [Mass/volu me] in Serum or Plasma MAGNESIUM Lab Routine Every Mon in the AM Lab until discontinued starting 06/18/2023, 1 completed [facility] Comment on above: Every Mon in the AM Lab until discontinu ed starting 06/18/2023, 1 completed [facility] Work Phone: Potassium [Moles/vol ume] in Serum or Plasma POTASSIUM Lab Routine UD PRN until discontinued starting 06/06/2023, 1 completed [facility] Comment on above: UD PRN until discontinued starting 06/06, 1 completed PROTIME-INR PROTIME-INR Lab Routine Every morning Lab until discontinued starting 06/10/2023, 9 completed [facility] Comment on above: Every morning Lab until discontinued sta rting 06/10/2023, 9 completed Standard ECG ECG ECG STAT Needed until discontinued starting 06/06/2023, 1 completed [facility] Comment on above: Needed until discontinued starting , 1 completed Standard ECG ECG ECG Routine Daily until discontinued starting 06/11/2023 [facility] Comment on above: Daily until discontinued starting 2023 Payers Date Payer Category Payer Self-pay 2023 Unknown AARP AARP [id number] 2023-Present [address] [place] [address] [id number] 2023 Unknown [id number] 2021 Medicare [id number] 2020 Unknown [id number] 2010 Medicare MEDICARE MEDICAR E A AND B [id number] 2010-Present [address] [place] [address] [id number] 2010 Medicare [id number] 1945 Unknown [id number] 2.16.840.1.410282.3.579.2.732 1945 Unknown [id number] 2.16840.1.213353.3.579.2.732 1945 Unknown [id number] 2.16840.1.919758.3.579.2.73 1945 Unknown [id number] 2.16.840.1.604419.3.579.2.732 1945 Unknown [id number] 2.16.840.1.511470.3.579.2.732 1945 Unknown [id number] 2.16.840.1.146730.3.579.2.732 1945 Unknown [id number] 2.16.840.1.821974.3.579.2.732 1945 Unknown [id number] 2.16.840.1.137164.3.579.2.732 1945 Unknown [id number] 2.16.840.1.736310.3.579.2.732 1945 Unknown [id number] 2.16.840.1.001444.3.579.2.732 1945 Unknown [id number] 2.16.840.1.220068.3.579.2.732 1945 Unknown [id number] 2.16.840.1.335291.3.579.2.732 1945 Unknown [id number] 2.16.840.1.363571.3.579.2.732 1945 Unknown [id number] 2..840.1.100130.3.579.2.732 1945 Unknown [id number] 2.16.840.1.854014.3.579.2.732 1945 Unknown [id number] 2.16.840.1.725418.3.579.2.732 1945 Unknown [id number] 2.16.840.1.830479.3.579.2.594 1945 Unknown [id number] 2.840.1.888360.3.579.2.594 1945 Unknown [id number] 2.16.840.1.284816.3.579.2.594 1945 Unknown [id number] 2.16.840.1.948881.3.579.2.594 Unknown [id number] 2.16.840.1.692720.3.579.2.462 Unknown [id number] 2.16.840.1.154794.3.579.2.462 Unknown [id number] 2.16.840.1.840092.3.579.2.462 Unknown [id number] 2.16.840.1.686913.3.579.2.462 Unknown [id number] 2.16.840.1.981736.3.579.2.462 Unknown [id number] 2.16.840.1.586933.3.579.2.462 Unknown [id number] 2.16.840.1.710875.3.579.2.462 Unknown [id number] 2.16.840.1.821822.3.579.2.462 Unknown [id number] 2.16.840.1.618844.3.579.2.462 Unknown [id number] 2.16.840.1.201891.3.579.2.462 Unknown [id number] 2.16.840.1.473794.3.579.2.462 Unknown [id number] 2.16.840.1.691533.3.579.2.462 Unknown [id number] 2.16.840.1.761115.3.579.2.462 Unknown [id number] 2.16.840.1.352161.3.579.2.462 Unknown [id number] 2.16.840.1.575295.3.579.2.462 Unknown [id number] 2.16.840.1.094051.3.579.2.462 Unknown [id number] 2.16840.1.894453.3.579.2.462 Unknown [id number] 2.16840.1.187309.3.579.2.462 Unknown [id number] 2.16840.1.916404.3.579.2.462 Social History Date Type Detail Facility [facility]: [facility] Start: 06-07-2023 Tobacco use and exposure Smoke less tobacco non-user [facility] Start: 06-07-2023 End: 08-10-2023 Alcohol intake Lifetime non-drinker (finding) [facility] Start: 06-06-2023 End: 08-10-2023 History of Social function [facility] Start: 06-06-2023 End: 08-10-2023 [facility] Utilities [facility] Has the electric, [employer], oil, or water company threatened to shut off services in your home in past 12Mo No [facility] (I/We) worried wheth er (my/our) food would run out before (I/we) got money to buy more. Never true [facility] In the past 12 month s, has lack of transportation kept you from medical appointments or from getting medications? No [facility] Start: 1945 Sex Assigned At Not on file [facility] NEGATED: Highlighted rowStart: NINF History of tobacco use Passive smoker [facility] Clinical Notes 03-19-2021 to 08-27-2024 Dean Veloz MD - 08/10/2023 11:00 AM Dustin Veloz MD - 08/10/2023 11:00 AM Rowdy Covington MD - 06/19/2023 1:13 PM Rowdy Covington MD - 06/19/2023 1:13 PM ESTDischarge Instructions Note Date & Type Note Facility 08-27-2024 Note [facility] Medical Records Department [address] [place] [address] Discharge Summary 08/27/24 1238 MR#: [id number] Acct: [id number] Name: MARKUS NAVA Rep #: [id number] : 1945 79 From: Braden Coto DO PCP: Dr. Louie Burns DO Status:[id number] Prov[facility] Date of Admission: 08/23/24 Primary Care Physician: Dr. Louie Burns DO Reason For Visit: HYPOXIA, SUSPECTED PNA, PAF RVR Diagnosis Discharge Diagnosis (1) CHF exacerbation: Status: Chronic Code(s): I50.9 - Heart failure, unspecified Plan: No obvious infiltrate on CXR, but rather pulmonary vascular congestion and pleural effusions. Acute HFpEF. EF 55% on echo from 01/22/24 furosemide IV. (2) Pneumonia: Status: Acute Code(s): J18.9 - Pneumonia, unspecified organism Plan: Serratia marcescens Will restart the ceftriaxone and then transition him over to Bactrim starting on the . Will need to be cautious with warfarin while on the Bactrim, complete 7-days of abx (4 more days of oral). Plan s/p mechanical AVR: continue warfarin Crohn's disease: stable. HTN: stable. metoprolol VTE prophylaxis: not indicated as already anticoagulated. Medications at Discharge Home Medications ferrous sulfate 325 mg (65 mg iron) tablet (FeroSul) 325 mg PO LUNCH suppliment #30 tabs 05/04/23 melatonin 10 mg capsule 10 mg PO QHS SLEEP 30 days #0 caps 05/04/23 lorazepam 0.5 mg tablet 0.5 mg PO BID anxiety 05/21/23 warfarin 1 mg tablet 1 mg PO .COMPLEX BLOOD THINNER #180 tabs 08/02/23 warfarin 5 mg tablet 5 mg PO .COMPLEX BLOOD THINNER #90 tabs 08/02/23 metoprolol tartrate 50 mg tablet 50 mg PO BID BLOOD PRESSURE #180 TABLETS 12/17/23 duloxetine 60 mg capsule,delayed release 60 mg PO DAILY DEPRESSION #90 caps 12/24/23 ascorbic acid (vitamin C) 500 mg tablet (C-500) 500 mg PO DAILY suppliment 01/19/24 b12 gummy 1 gummy PO DAILY suppliment 01/26/24 nystatin 100,000 unit/gram topical powder (Nyamyc) 1 applic topical BID 08/23/24 triamcinolone acetonide 0.1 % topical cream 1 applic topical TID PRN PRN affected area 08/23/24 furosemide 40 mg tablet 40 mg PO DAILY #30 tabs 08/27/24 guaifenesin 600 mg tablet, extended release 12 hr (Mucinex) 600 mg PO BID #10 tabs 08/27/24 sulfamethoxazole 800 mg-trimethoprim 160 mg tablet 1 tab PO BIDCM #7 tabs 08/27/24 Hospital Course Operations None Procedures None Summary of Care Provided Minutes Spent on Discharge: 40 Hospital Course: Patient presents with shortness of breath. Found to have CHF and was started on furosemide. Initially could not rule out pneumonia so patient was started on ceftriaxone. When I evaluated and actually felt that he had pneumonia but rather CHF but his sputum culture came back showing Serratia so patient will continue with his antibiotics with Bactrim the Serratia is sensitive to that. His INR will need to be followed up closely as it could potentially interfere with his INR. Currently his INR is 2.4 with him having an aortic valve replacement his INR should be around 2.5-3. Patient was ambulated and will require oxygen upon discharge. Weight / BMI Weight Weight: 95.6 kg Body Mass Index (BMI) 28.5 ABG / Lab / Microbiology Data 08/27/24 05:11 08/27/24 05:11 Laboratory: Laboratory Results - last 24 hr 08/27/24 05:11: WBC 5.7, RBC 4.26 L, Hgb 13.4, Hct 39.9 L, MCV 93.7, MCH 31.5, MCHC 33.6, RDW Std Deviation 48.6 H, RDW Coeff of Rich 14.2, Plt Count 198, MPV 10.5, Immature Gran % (Auto) 0.500, Neut % (Auto) 64.2, Lymph % (Auto) 10.6 L, [place] % (Auto) 19.2 H, Eos % (Auto) 4.4, Baso % (Auto) 1.1 H, Absolute Neuts (auto) 3.7, Absolute Lymphs (auto) 0.60 L, Nucleated RBC % 0, PT 26.3 H, INR 2.4, Sodium 135, Potassium 4.0, Chloride 98, Carbon Dioxide 25.0, Anion Gap 12, BUN 13, Creatinine 0.99, Estim Creat Clear Calc 72.57, Est GFR (MDRD) Non-Af 78, BUN/Creatinine Ratio 13.2, Glucose 104 H, C alcium 7.3 L Microbiology: Microbiology 08/23/24 06:10 Sputum, Expectorated/Coughed Gram Stain - Final 08/23/24 06:10 Sputum, Expectorated/Coughed Respiratory Culture - Final Serratia marcescens 08/23/24 00:15 Blood Culture (Wb) - Left Forearm Blood Culture - Preliminary No growth in 48 hours. 08/23/24 00:15 Blood Culture (Wb) - Anticubital Left Blood Culture - Preliminary No growth in 48 hours. 08/23/24 01:45 Urine, Clean Catch Urine Culture - Final Culture exhibits no growth. 08/23/24 01:45 Urine, Random Legionella Antigen - Final 08/23/24 01:45 Urine, Random Streptococcus pneumoniae Antigen (M - Final 08/23/24 03:38 Mucosa - Nasopharyngeal Respiratory Panel (PCR) - Final 08/23/24 00:25 Mucosa - Nose SARS-CoV-2, Influenza RSV (PCR) - Final D/C Instructions Discharge Diet: 2000 mg Sodium Diet and - (1.5 liters of IVF/day) DC O2, CPAP, BIPAP Needs Home O2 Discharge instructions: Yes Type of r (more content not included)... [facility] 08-10-2023 History and physical note FER HISTORY [...] 123.4 (H) 06/18/2023 PTT 48 (H) 12/24/2004 [facility] 08-10-2023 History and physical note FER [...] 48 (H) 12/24/2004 documented in this encounter [facility] 06-19-2023 Hospital course Narrative Hospital Medicine Discharge Summary Patient Name Markus Nava Age (Date of ) 78 y.o. (1945) Admit Date 06/06/2023 Discharge Date 06/19/2023 Inpatient Days 13 Primary Diagnoses MSSA Endocarditis of the aortic valve Action Items Follow-up with local wire brush maker regarding basal cell of neck Finish prescribed antibiotic course Dear Doctors, I recently had the opportunity to care for Markus Nava during his recent hospital stay at [facility]. As you may know, Mr. Nava [...] OS but patient preferred to see a wire brush maker closer to home. Upon discharge the patient's code was Full Code Please see the remainder of this document for relevant data from this admission as well as the patient's discharge instructions and follow-up appointments.. An electronic copy of the patient's records can be obtained via [facility] at [email or web address] It has been my pleasure participating [...] Department Center 07/26/2023 11:00 AM FER TESTING, [facility] 07/30/2023 10:00 AM Titi Sabillon MD (John) [facility] 08/02/2023 10:00 AM Asha Bundy MD [facility], [place] [address] Michael Maldonado MD [address] [facility] Phys[facility] [address] [place] [phone] Follow up Please call to schedule hospital [...] 325 (65 Fe) MG tab DR tablet DR LORazepam 0.5 MG TABS Commonly known as: ATIVAN melatonin CAPS Metoprolol 50 MG tab regular release Commonly known as: LOPRESSOR STOP taking these medications Warfarin 1 MG tablet Commonly known as: COUMADIN You also have another medication with the same name that you need to continue taking as instructed. Where to Get Your Medications These medications were sent to [facility] [address], [address], [facility] [address] Hours: Sunday through Sunday 8am to 9pm, Sunday and Sunday 9am to 6pm predniSONE 5 MG TABS Tamsulosin HCl 0.4 MG CAPS You can get these medications from any pharmacy Bring a paper prescription for each of these medications ceFAZolin injection Follow-up: [facility] [employer] [facility] [employer] [place] [address] Michael Maldonado MD [address] [facility] [address] [place] [address] [phone] Follow up Please call to schedule hospital follow-up/INR check Upcoming Appointments (up to five)-Some appointments for Medical Center outpatient clinics or diagnostic testing locations are not displayed below Provider Department Dept Phone 07/26/2023 11:00 AM FER TESTING, [facility] Cardiovascular Imaging Lab [facility] Arrive at: Arrive to [facility] Registration Desk [phone] 07/30/2023 10:00 AM Titi Spangler (John) Supervisor [facility] Arrive at: Arrive to [facility] Registration Desk [phone] 08/02/2023 10:00 AM Asha Bundy Infectious Diseases Care [facility] Outpatient [facility] [phone] documented in this encounter [facility] 06-19-2023 Hospital course Narrative Hospital Medicine Discharge Summary Patient Name Markus Nava Age (Date of ) 78 y.o. (1945) Admit Date 06/06/2023 Discharge Date 06/19/2023 Inpatient Days 13 Primary Diagnoses MSSA Endocarditis of the aortic valve Action Items Follow-up with local wire brush maker regarding basal cell of neck Finish prescribed antibiotic course Dear Doctors, I recently had the opportunity to care for Markus Nava during his recent hospital stay at [facility]. As you may know, Mr. Nava [...] OS but patient preferred to see a wire brush maker closer to home. Upon discharge the patient's code was Full Code Please see the remainder of this document for relevant data from this admission as well as the patient's discharge instructions and follow-up appointments.. An electronic copy of the patient's records can be obtained via [facility] at [email or web address] It has been my pleasure participating [...] Discharge Future Appointments Date Time Provider Department [place] 07/26/2023 11:00 AM FER TESTING, [facility] 07/30/2023 10:00 AM Titi Sabillon MD (John) [facility] 08/02/2023 10:00 AM Asha Bundy MD [place] [address] Michael Maldonado MD [address] [facility] [address] [place] [phone] Follow up Please call to schedule hospital [...] Your Medications These medications were sent to [facility] [address], [address], [facility] [address] Hours: Sunday through Sunday 8am to 9pm, Sunday and Sunday 9am to 6pm predniSONE 5 MG TABS Tamsulosin HCl 0.4 MG CAPS You can get these medications from any pharmacy Bring a paper prescription for each of these medications ceFAZolin injection Follow-up: [facility] [employer] [facility] [employer] [place] [address] Michael Maldonado MD [address] [facility] [address] [place] [address] [phone] Follow up Please call to schedule hospital follow-up/INR check Upcoming Appointments (up to five)-Some appointments for Medical Center outpatient clinics or diagnostic testing locations are not displayed below Provider Department Dept Phone 07/26/2023 11:00 AM FER TESTING, [facility] Cardiovascular Imaging Lab [facility] Arrive at: Arrive to [facility] Registration Desk [phone] 07/30/2023 10:00 AM Titi Spangler (John) Supervisor [facility] Arrive at: Arrive to [facility] Registration Desk [phone] 08/02/2023 10:00 AM Asha Bundy Infectious Diseases Care [facility] [phone] documented in this encounter [facility] 06-19-2023 Miscellaneous Notes After Visit Summary reviewed [...] provide SN for infusion services: [facility], [place] [phone] Fax: [phone] Addendum at 1529: Patient will also use [facility] for infusion pharmacy: [facility], an [facility] [address] [facility] [address] [place] [address] NATAN Mills RN Problem: Patient Care Overview [...] Conf Outcome: Ongoing documented in this encounter [facility] 06-19-2023 Miscellaneous Notes After Visit Summary reviewed [...] infusion services: [facility] [address] [place] [address] Fax: [phone] Addendum at 3086: Patient will also use [facility] for infusion pharmacy: [employer], an [facility] [facility] [address] [place] [address] Bianca Chung [facility] RN Problem: Patient Care Overview Goal: Plan [...] Conf Outcome: Ongoing documented in this encounter [facility] 06-19-2023 Nurse Note After Visit Summary reviewed [...] No further issues at time of discharge. [facility] 06-19-2023 History of Present illness Narrative Final Discharge Planning and Transportation Final Discharge Planning Discharge Disposition: Home with Infusion Services at Discharge: Jail Selected Continued Care - Admitted Since 06/06/2023 Dialysis/Infusion Coordination complete. Service Provider Selected Services Address Phone Fax Patient Preferred [facility] IV [facility] [address] [place] [phone] -- Current Capacity last updated by Dominique Solorio RN on 03/28/2023 1518 Home IV ATBs Home Medical Care Coordination complete. Service Provider Selected Services Address Phone Fax Patient Preferred [facility] Home Nursing [address] [place] [phone] -- Community Agency Name(s) For Handoff: [facility] Name For Handoff: director institution Phone For Handoff: Fax For Handoff: Fax: [phone] Community Agency Name For Handoff: [facility] Phone For Handoff: Fax For Handoff: Plan Plan: pt to dc home with SN and infusion services in place Patient/Family In Agreement With Plan: yes Transportation Family to transport the patient. CM had conversation with patient/caregiver related to specialty care follow-up. Barriers identified: None Outpatient CM was not contacted related to barriers Sandra Lopez RN, BSN Clinical Road Mechanic Home Health Referral Educated Patient on Home Care and services available. Patient agreeable to Jail services with [facility] and [facility] for infusion pharmacy. Current Home DME: None Patient Demographics Name: Markus Constantine [place] Patient Demographics [address] [facility] [address] PCP Louie Burns Language Portuguese Flag Signalman Needed No (home) Cell Phone No relevant [...] Caregiver: Name:Thai Lin Relation to patient: Contact #:[phone] Is teachable available for SOC visit? Yes IV/TPN/Tube Feed: Infusion Company:[facility] Infectious Disease Physician:Dr. Kelvin Soliz Infusion/TF Orders:Cefazolin [...] Function Panel every Sunday Frequency: Source Site: [facility] Send Results To: fax to [phone], attention (ID Attending): Dr. Kelvin Soliz (ID Fellow): Dr. Marley [facility] General Report/ Additional Comments: Markus Nava [...] NATAN Mills RN This [facility] RN called [facility] agency at [phone] to let her know that patient is discharging today. DC documents uploaded to [employer] and faxed to [phone]. NATAN Mills RN Images from the original note were not included. [facility] Note: Bedside Delivery Documentation The following prescription(s) were tubed to the patient's bedside. Dolores Zaman [facility] ([place]) [phone] [facility] [phone] [facility] Bedside Delivery [phone] [facility] [phone] [facility] Bedside Delivery [phone] [facility] [phone] [facility] Bedside Delivery [phone] [place] [phone] [place] [phone] Markus is to get final dose of gentamicin tomorrow and then will be ready for discharge tomorrow. I updated [facility] and [facility] (via [place]) of this plan. [facility] has the atb script; I uploaded PICC information. Gabriela Harding RN Clinical Road Mechanic Images from the original note were not included. [facility] Note: Non-Verbal Med Rec [facility] received the following discharge prescription(s): Total cost is $15.67. I have reviewed the Discharge Rx Reconciliation Report. The discharge prescription(s) will be delivered to the patient on 06/18/2023. Quentin Rodriguez RPh,PharmD Specialty ([place]) [phone] [facility] [phone] [facility] Bedside Delivery [phone] [facility] [phone] [facility] Bedside Delivery [phone] [place] [phone] [facility] Bedside Delivery [phone] [place] [phone] [place] [phone] [facility] Medicine Progress Note Patient: Markus Nava, [...] heparin gtt Anticipated Disposition: home tomorrow if C can be arranged Code status is Full [...] 123.4/26.5/2.5 (06/18 608) Signed, Wiley Covington MD [facility] Medicine Progress Note Patient: Markus Nava, [...] 91.6/20.0/1.7 (06/17 327) Signed, Wiley Covington MD [facility] Medicine Progress Note Patient: Markus Nava, [...] -please set him up with his outpatient special officer automat in [place] to be seen within 1 month of [...] to PO amio. -currently in rate-controlled AF -IDH0JV0-CZGk3 is 3, continue systemic AC with warfarin [...] early evening heparin 14 Units/kg/hr (06/15/23 1326) [id number] Score for Atrial Fibrillation Stroke Risk Age in Years: 75+ Sex: Male CHF History: Yes Hypertension History: No Stroke/TIA/Thromboembolism History: No Vascular Disease History: No Diabetes History: No HIH0VY4-FMKu Score: 3 Complexity. Thank you for this consult. Please call with questions. We will sign off at this time. [facility] Consult Service Phone: [phone] Hospital Medicine Progress Note Patient: Markus Nava, [...] affect and cognition Data Review Na/K+/Phos/Mg/Ca: 139/4.4/--/1.9/-- (06/155) Bun/Creat/Cl/CO2/Glucose: 20/1.03/103/28/93 (06/15 314) Ptt/Pt/Inr: 82.6/15.5/1.2 (06/15 314) Signed, Wiley Covington MD [facility] Medicine Progress Note Patient: Markus Nava, [...] and Status--Accepted/Reserved [facility] [address] [place] [address] Rachel, an [facility] [address] [place] [address] MAISHA updated in Rounds. Patient discharge anticipated early next week- INR hold. Patient has home health/home infusion arranged by [facility]. Home Health -- only accepting agency has nursing available for SOC early next week (no weekend availability). CM contacted patient's Tool Chaser Office-Dr Maldonado with [facility] to verify ability to continue managing coumadin/INR when discharged. CM will continue follow up and assist with discharge planning. Radha KEN Clinical Road Mechanic [facility] Images from the original note were not [...] -please set him up with his outpatient special officer automat in [place] to be seen within 1 month of [...] to PO amio. -currently in rate-controlled AF -[id number]-NWMc3 is 3, continue systemic AC with warfarin [...] early evening heparin 14 Units/kg/hr (06/14/23 1314) [id number] Score for Atrial Fibrillation Stroke Risk Age in Years: 75+ Sex: Male CHF History: Yes Hypertension History: No Stroke/TIA/Thromboembolism History: No Vascular Disease History: No Diabetes History: No TZK9ZL1-YWLm Score: 3 Complexity. Thank you for this consult. Please call with questions. We will continue to follow along. [facility] Consult Service Phone: [phone] Department of Pharmacy Pharmacokinetics Progress Note Patient: Markus Nava Room/Bed: 70/A Assessment and Plan: Based upon drug level [...] with prosthetic/mechanical AV endocarditis FER (06/05/2023) at [facility] with 1.1cm x 0.7cm mobile vegetation on subaortic valvular lesion without surgical candidacy upon [facility]. 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 Asha Bundy Labs: Please have the [facility] [employer] or [facility] obtain the following labs and fax to [phone], attention (ID Attending): Dr. Kelvin Soliz (ID [...] Clinic (Please ensure patient is enrolled in [facility] prior to discharge) If the patient is being [facility] a [facility] we will defer ID Care to the Infectious Disease Providers at the [facility] facility. Please instruct the facility that [...] on 08/02/2023 at 10:00AM. Asha Bundy MD [facility] Medicine Progress Note Patient: Markus Nava DOB: 1945, Impression / Plan Markus Nava is [...] pulm edema S/w Wanda Boyle [facility] who informed me that if [...] a 78 y.o. 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 MSSA bacteremia with prosthetic/mechanical AV endocarditis FER (06/05/2023) at [facility] with 1.1cm x 0.7cm mobile vegetation on subaortic valvular lesion. Blood cultures initially positive on 06/02/2023. Started on intermittent Cefazolin with Gentamicin prior to transfer [facility] 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 For [...] as noted above. Kelvin Soliz MD, PhD Superintendent Compressor Stationscheck writer salesperson Division of Infectious Diseases Images from the [...] Please set him up with his outpatient special officer automat in [place] to be seen within 1 month of [...] per BP tolerance for rate control. - [id number]-IAUx7 is 3, continue systemic AC with warfarin [...] Daily early evening heparin 15 Units/kg/hr (06/12/232106) [id number]-ITEa Score for Atrial Fibrillation Stroke Risk Age in Years: 75+ Sex: Male CHF History: Yes Hypertension History: No Stroke/TIA/Thromboembolism History: No Vascular Disease History: No Diabetes History: No GGS1VJ0-CNEf Score: 3 Complexity. Thank you for this consult. Please call with questions. We will continue to follow along. [facility] Consult Service Phone: [phone] [facility] Medicine Progress Note Patient: Markus Nava, [...] bacteremia. 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 - Continue cefazolin 3g q12h over 12 [...] Please set him up with his outpatient special officer automat in [place] to be seen within 1 month of [...] per BP tolerance for rate control. - [id number]-EDHh5 is 3, continue systemic AC with warfarin [...] Intake/Output Summary (Last 24 hours) at 06/12/2023 0709 Last data filed at 06/12/2023 0633 Gross [...] early evening heparin 12 Units/kg/hr (06/12/23 0633) [id number]-GJOi Score for Atrial Fibrillation Stroke Risk Age in Years: 75+ Sex: Male CHF History: Yes Hypertension History: No Stroke/TIA/Thromboembolism History: No Vascular Disease History: No Diabetes History: No PHY2AQ4-MGRd Score: 3 Thank you for this consult. Please call with questions. We will continue to follow along. [facility] Consult Service Phone: [phone] Department of Pharmacy Antimicrobial Stewardship Documentation Note [...] the following recommendations are based on [facility]'s Diagnosis and Management of Staphylococcus aureus [...] further questions. Name: Haley Mahmood RPH Phone: [phone] Date/Time: 06/12/2023 7:24 AM Discharge Plan Expected Discharge Date: 06/13/2023 Referred Level of Care: Home Health/Home Infusion Barriers: Cultures, Final ID recs/Antibiotic plan, PICC Current Referrals and Status [facility] assisting with Home Health/Home Infusion referrals. will continue following for discharge planning. Radha KEN Clinical Road Mechanic [facility] Hospital Medicine Progress Note Patient: Markus [...] who had not responded as of yet. Bianca Chung PACC RN Images from the original note [...] Please set him up with his outpatient special officer automat in [place] to be seen within 1 month of [...] rate control with BB and amiodarone - [id number]-SQRq7 is 3, continue systemic AC with warfarin [...] early evening heparin 11 Units/kg/hr (06/11/23 0800) [id number] Score for Atrial Fibrillation Stroke Risk Age in Years: 75+ Sex: Male CHF History: Yes Hypertension History: No Stroke/TIA/Thromboembolism History: No Vascular Disease History: No Diabetes History: No SYA2MI3-NRKa Score: 3 Thank you for this consult. Please call with questions. We will continue to follow along. [facility] Consult Service Phone: [phone] Images from the original note were not included. INFECTIOUS DISEASE FOLLOW-UP NOTE IDENTIFYING INFORMATION PATIENT: Markus Nava REFERRING PROVIDER: Heike Milan MD ADMIT DATE: 06/06/2023 TODAY'S DATE: 06/11/2023 REASON FOR CONSULT 78y M with hx of aortic valve replacement now with MSSA bacteremia and AV endocarditis ASSESSMENT Markus Nava is a 78 y.o. 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 MSSA bacteremia with prosthetic/mechanical AV endocarditis FER (06/05/2023) at [facility] with 1.1cm x 0.7cm mobile vegetation on subaortic valvular lesion. Blood cultures initially positive on 06/02/2023. Started on intermittent Cefazolin with Gentamicin prior [facility]. 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 For now, continue IV cefazolin by continuous infusion -- anticipate 6-8 week course from durable blood culture clearance (current day 1 = 06/08/23) with likely subsequent chronic oral suppression. Continue gentamicin for synergy (important to monitor renal function and drug levels; appreciate pharmacy assistance and monitoring while on this regimen) -- plan for 2-week course. Kelvin Soliz MD, PhD Superintendent Compressor Stationscheck writer salesperson Division of Infectious Diseases Hospital Medicine Progress Note Patient: Markus Nava, [...] further questions. Name: Kelvin Pitts RPH Phone: [phone] Date/Time: 06/10/2023 3:10 PM Images from the [...] Please set him up with his outpatient special officer automat in [place] to be seen within 1 month of [...] rate control with BB and amiodarone - [id number]-TXYf2 is 3, continue systemic AC with warfarin [...] Daily early evening heparin 14 Units/kg/hr (06/10/23 0731) [id number]-YVVy Score for Atrial Fibrillation Stroke Risk Age in Years: 75+ Sex: Male CHF History: No Hypertension History: Yes Stroke/TIA/Thromboembolism History: No Vascular Disease History: No Diabetes History: No BPL6AB6-KKSk Score: 3 Thank you for this consult. Please call with questions. We will continue to follow along. Plan of care developed in collaboration with attending special officer automat Dr. Potter. [facility] Consult Service Phone: [phone] [facility] Medicine Progress Note Patient: Markus Nava, [...] and cognition Data Review Na/K+/Phos/Mg/Ca: 137/4.2/--/1.9/-- (06/09 36) Bun/Creat/Cl/CO2/Glucose: 23/0.93/104/26/100 (06/09 36) Ptt/Pt/Inr: 101.7/--/-- (06/09 1257) Cxr pulm edema [...] Please set him up with his outpatient special officer automat in [place] to be seen within 1 month of [...] rate control with BB and amiodarone - [id number]-OSGv8 is 3, home warfarin on hold currently [...] Oral Daily heparin 15 Units/kg/hr (06/09/23 0647) [id number] Score for Atrial Fibrillation Stroke Risk Age in Years: 75+ Sex: Male CHF History: No Hypertension History: Yes Stroke/TIA/Thromboembolism History: No Vascular Disease History: No Diabetes History: No ZGL9PT6-XCRe Score: 3 Thank you for this consult. Please call with questions. We will continue to follow along. Plan of care developed in collaboration with attending special officer automat Dr. Potter. [facility] Consult Service Phone: [phone] BRIEF NUTRITION NOTE: Current Diet Orders Procedures DIET HEART HEALTHY - 4 GM SODIUM Standing Status: Standing Number of Occurrences: 1 Pt with no significant nutrition changes over the past week. Tolerating diet with adequate po intake. No notable wt changes. opthalmic tech will continue to follow/assist prn. Basil Galindo DTR Pager: [phone] [facility] Medicine Progress Note Patient: Markus Nava, [...] appropriate follow-up. Please contact our offices at [phone] to schedule. This patient was discussed with Dr. Titi Sabillon MD. We will sign off. Please call with any additional questions or concerns. Thank you. Laurie Fritz APRN-SALVAGE MECHANIC [facility] Cardiothoracic Surgery Inpatient Nurse Practitioner Phone #[phone] [facility] Coordination Note Patient received in handoff from therapeutic case manager for potential homecare services. Referrals place in aidin, awaiting responses. Will continue to follow with therapeutic case manager for plan of care. [facility] Home Health [...] assist with discharge planning. Radha KEN Clinical Road Mechanic [facility] Department of Pharmacy Pharmacokinetics Progress Note Patient: Андрей Tidwell [facility] Assessment and Plan: Based upon [...] Administered: Dose: Date: Time: 80 mg 06/08 322 80mg 06/07 1805 Gentamicin Levels: 1.1 g/mL drawn at 0111 [...] further questions. 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 Daily Activity Inpatient Short Form Putting on/Taking Off Lower Body Clothin - A Little Assistance Bathin - No Assistance Toiletin - No Assistance Putting on/Taking Off Upper Body Clothin - No Assistance Groomin - No Assistance Eatin - No Assistance CURRENT AM[facility] Activity Raw Score: 23 CURRENT AM[facility] Activity Functional Limitation/Modifier: 15.86% Currently Impaired in [...] Acute Physical Therapy Evaluation Prior to Admission AMPAC score(s): PRIOR LEVEL AM-PAC Mobility Raw Score: 24 Current AM-PAC score(s): CURRENT AM-PAC Mobility Raw Score: 21 Based on the Gait speed, 5xSTS, AM-PAC score(s) and PT clinical judgment, patient is a good candidate for discharge to Home Barriers to discharge home: None Highest Level of activity achieved on this date Gait Citrus Level: Gait: contact guard assist Ambulation Distance (Feet): (430ft) no AD, no LOB Mobility equipment available at home: none used ADL equipment available at home: none Equipment needed for discharge: none Current therapy frequency recommendation in acute: Therapy Frequency: no therapy warranted Activity Recommendations for outside of rehab session: Ambulate in hallways with RN or MANAGER SHIPPING x3 daily Precautions and Weightbearing Status: Existing [...] Equipment Available: none 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 Function Prior level ADL Overview: Independent with all ADLs Dominant Hand: Ambidextrous, Left Bed Mobility/Transfers: independent Ambulation Skills: independent Assistive Device: none used Level of Ambulation: community Prior Level of Function Details: [facility]- 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 Objective/Observation: Vitals/Vitals Responses to Treatment: Vitals monitored [...] width Transfer Assessment: Sit to Stand Transfer Citrus Level: Sit->Stand: supervision Skilled Rationale: Hand placement, Verbal cues, Cues for increased safety, Facilitate anterior shift Skilled Intervention/Details: Sit->Stand: cues for STS mechanics and increased safety Stand to Sit Transfer Citrus Level: Stand->Sit: supervision Skilled Rationale: Hand placement, Verbal cues, Technique of activity Gait/Functional Mobility: Gait Assessment Citrus Level: Gait: contact guard assist Ambulation Distance (Feet): (430ft) Gait Deviations Identified: decreased david, decreased step length Gait Skilled Rationale: verbal, upright posture Skilled Intervention/Details - Gait: Cues for equal step length Stairs: Stairs Assessment Citrus Level: Stair Negotiation: not tested Outcome Score(s): [...] fall risk4 > 15 seconds: recurrent falls2 1Bijal Flores Shimada, H., et al. (2008). 2BMehdi zimmer, Zack Farah, et al. (2010). 3BMehdi zimmer, [place] Vital, et al. (2008). 4DBj loyola, Bijal Solano, et al. (2011). Pt with average gait speed of 1.1 meters/sec on this date during testing, placing patient as able to perform community ambulation as seen in the chart below. Walking speed classification Household ambulation Limited Community ambulation Community ambulation [address] safely 0 - 0.4 meter/sec 0.4 - 0.8 meter/sec 0.8 - 1.3 meter/sec >1.4 meter/sec Dylan Marc, Quinn Veloz (2015) CURRENT [facility] Basic Mobility Inpatient Short Form Turning over in bed: 4 - No Assistance Sitting/standing from chair: 4 - No Assistance Moving from lying on back to sittin - No Assistance Moving to and from bed to chair: 3 - A Little Assistance Walk in hospital room: 3 - A Little Assistance Climbing 3-5 steps with a railin - A Little Assistance CURRENT [facility] Mobility Raw Score: 21 CURRENT [facility] Mobility Functional Limitation/Modifier: 28.97% Currently Impaired [...] PT Goals Plan of Care by Ross Stone, PT at 06/08/2023 9:37 AM Version 1 [...] PO amio. Currently in rate-controlled AF. - [id number] is 3, on heparin gtt - Recommend [...] Oral Daily heparin 14 Units/kg/hr (06/08/23 0905) [id number] Score for Atrial Fibrillation Stroke Risk Age in Years: 75+ Sex: Male CHF History: No Hypertension History: Yes Stroke/TIA/Thromboembolism History: No Vascular Disease History: No Diabetes History: No [id number]-ATBh Score: 3 Thank you for this consult. Please call with questions. We will continue to follow along. [facility] Cardiology Consult Service Phone: [phone] Images from the original note were not included. INFECTIOUS DISEASE FOLLOW-UP NOTE IDENTIFYING INFORMATION PATIENT: Markus Nava REFERRING PROVIDER: Heike Milan MD ADMIT DATE: 06/06/2023 TODAY'S DATE: 06/08/2023 REASON FOR CONSULT 78y M with hx of aortic valve replacement now with MSSA bacteremia and AV endocarditis ASSESSMENT Markus Nava is a 78 y.o. 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 MSSA bacteremia with prosthetic/mechanical AV endocarditis FER (06/05/2023) at [facility] with 1.1cm x 0.7cm mobile vegetation on subaortic valvular lesion. Blood cultures initially positive on 06/02/2023. Started on intermittent Cefazolin with Gentamicin prior to transfer to [facility] on 06/06/2023. 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) complicated [...] 06/08/2023 Microbiologic Data (personally reviewed): Blood (06/02/2023, [facility]): MSSA Blood (06/06/2023): MSSA (Line & Peripheral) [...] MD, PhD Division of Infectious Diseases [facility] Hospital Medicine Progress Note Patient: Markus Nava, [...] No Spouse: No (Thai Lin Significant Other [phone]) Adult Child(alberto), List All Adult Children: Yes Name and Contact information: Dominique Landon [phone] (patient is not and has one adult [...] Yes Provider or Clinic that manages Anticoagulation?: [facility]Tool Chaser manages No Pharmacies Listed Storage Architect Does the patient or sales development representative express financial concerns? : No Employed?: Retired Coping/Stress Concerns about patient s coping and stress?: No Concerns about patient s caregiver s coping and stress?: Unable to Assess Values and Beliefs Cultural or rastafari practices that may impact discharge planning and/or medical care?: No Initial Discharge Planning Anticipated discharge disposition: Home with Infusion Transportation Available for Discharge: Private Vehicle, Family or Friend Anticipated DME: none Anticipated Services at Discharge: Outpatient follow up, Jail Patient Assessment Completed: Initial Expected Discharge Date: 06/12/2023 Discharge Planning Summary CM met with patient to complete initial assessment Anticipate discharge home with outpatient follow up vs home with home infusion and outpatient follow up Case Management Plan 1.Role of Clinical Road Mechanic explained while admitted to [facility] 2.PCP/Specialist/pharmacy information updated as needed 3. Patient demographic/address/emergency contact information verified 4.Clinical Road Mechanic will continue to follow with medical team to coordinate discharge planning. Radha KEN Clinical Road Mechanic [facility] Department of Pharmacy Admission Medication Reconciliation Note Patient: Markus Nava Room/Bed: 70/A I have reviewed the patient's home medication [...] hallucinations Warfarin - Patient reports followed by [facility]. Patient has 1 mg and 5 mg tablets at home. Current patient reported directions are: Take 6.5 mg daily on Sun, Mon, Tu, Thurs, Fri, and Sat. Take 8 mg on . Please feel free to contact me with any further questions. Name: Binu Chauhan Phone #: [phone] Date/Time: 06/07/2023 10:07 AM Time Spent: 25 minutes Associated attestation - Judson Parsons RPH - 06/07/2023 1:16 PM EST Department of Pharmacy Admission Medication Reconciliation Note Patient: [facility] I have reviewed the home medication list with the Canal Boat Captain. The home medication list status is: complete. A call to the pharmacy was not needed because the information compiled from listed sources corroborates the patient/caregiver interview. All changes to the home medication list have been updated in [facility]. Updated FELLER MACHINE OPERATOR Med List: Prior to Admission Medications Prescriptions DULoxetine [address] Particles capsule Sig: Take 1 capsule by mouth daily. [...] with any further questions. Name: Judson Parsons RPH Phone #: [phone] Date/Time: 06/07/2023 1:16 PM Occupational Therapy Attempt Note 06/07/2023 OT Therapy Completed: Attempted Attempted Reason: Patient is not medically optimized to tolerate therapy program Karthik Downey OT Time In: 744 Time Out: 744 Total Visit Time: 0 minutes Total Treatment Time (skilled, billable minutes): 0 minutes Physical Therapy Attempt Note 06/07/2023 PT Therapy Completed: Attempted Attempted Reason: Other (see comments) (Pending further medical work-up) PT will follow as medically appropriate. Ross Stone PT Time In: 731 Time Out: 0732 Total Visit Time: 0 minutes Total Treatment Time (skilled, billable minutes): 0 minutes documented in this encounter [facility] 06-19-2023 History of Present illness Narrative Final Discharge Planning and Transportation Final Discharge Planning Discharge Disposition: Home with Infusion Services at Discharge: Jail Selected Continued Care - Admitted Since 06/06/2023 Dialysis/Infusion Coordination complete. Service Provider Selected Services Address Phone Fax Patient Preferred [facility] [address] [place] [address] [phone] -- Current Capacity last updated by Dominique Solorio RN on 03/28/2023 1518 Home IV ATBs Home Medical Care Coordination complete. Service Provider Selected Services Address Phone Fax Patient Preferred [facility] [facility] Home Nursing [address] [place] [address] [phone] -- Community Agency Name(s) [facility]off[facility] Name For Handoff: director institution Phone For Handoff: Fax For Handoff: Fax: [phone] Community Agency Name For Handoff: [facility] Phone For Handoff: Fax For Handoff: Plan Plan: pt to dc home with SN and infusion services in place Patient/Family In Agreement With Plan: yes Transportation Family to transport the patient. CM had conversation with patient/caregiver related to specialty care follow-up. Barriers identified: None Outpatient CM was not contacted related to barriers Sandra Lopez RN, BSN Clinical Road Mechanic Home Health Referral Educated Patient on Home Care and services available. Patient agreeable to Jail services with [facility] and [facility] for infusion pharmacy. Current Home DME: None Patient Demographics Name: Markus Nava Patient Demographics [address] [facility] [address] PCP Louie Burns Language Portuguese Flag Signalman Needed No (home) Cell Phone No relevant [...] Caregiver: Name:Thai Lin Relation to patient: Contact #:[phone] Is teachable available for SOC visit? Yes IV/TPN/Tube Feed: Infusion Company:[facility] Infectious Disease Physician:Dr. Kelvin Soliz Infusion/TF Orders:Cefazolin [...] Site: PICC Send Results To: fax to [phone], attention (ID Attending): Dr. Kelvin Soliz (ID [...] Dede with [facility] agency at [phone] to let her know that patient is discharging today. DC documents uploaded to [employer] and faxed to [phone]. NATAN Mills RN Images from the original note were not included. [facility] Note: Bedside Delivery Documentation The following prescription(s) were tubed to the patient's bedside. Dolores Zaman Specialty ([place]) [phone] [facility] [phone] [facility] Bedside Delivery [phone] [facility] [phone] [facility] Bedside Delivery [phone] [facility] [phone] [facility] Bedside Delivery [phone] [place] [phone] [place] [phone] Markus is to get final dose of gentamicin tomorrow and then will be ready for discharge tomorrow. I updated [facility] and [facility] (via Santana) of this plan. [facility] has the atb script; I uploaded PICC information. Gabriela Harding RN Clinical Road Mechanic Images from the original note were not included. [facility] Note: Non-Verbal Med Rec [facility] received the following discharge prescription(s): Total cost is $15.67. I have reviewed the Discharge Rx Reconciliation Report. The discharge prescription(s) will be delivered to the patient on 06/18/2023. Quentin Rodriguez RPh,PharmD Specialty ([place]) [phone] [place] [phone] [place] Bedside Delivery [phone] [facility] [phone] [facility] Bedside Delivery [phone] [place] [phone] [facility] Bedside Delivery [phone] [place] [phone] [place] [phone] [facility] Medicine Progress Note Patient: Markus Nava, [...] heparin gtt Anticipated Disposition: home tomorrow if [facility] can be arranged Code status is Full [...] 123.4/26.5/2.5 (06/18 608) Signed, Wiley Covington MD Hospital Medicine Progress [...] 91.6/20.0/1.7 (06/17 327) Signed, Wiley Covington MD [facility] Medicine Progress Note Patient: Markus Nava, [...] -please set him up with his outpatient special officer automat in [place] to be seen within 1 month of [...] to PO amio. -currently in rate-controlled AF -[id number]-GUOh7 is 3, continue systemic AC with warfarin [...] early evening heparin 14 Units/kg/hr (06/15/23 1326) [id number] Score for Atrial Fibrillation Stroke Risk Age in Years: 75+ Sex: Male CHF History: Yes Hypertension History: No Stroke/TIA/Thromboembolism History: No Vascular Disease History: No Diabetes History: No FYW1XS3-SQPk Score: 3 Complexity. Thank you for this consult. Please call with questions. We will sign off at this time. [facility] Consult Service Phone: [phone] Hospital Medicine Progress Note Patient: Markus Nava, [...] 82.6/15.5/1.2 (06/15 314) Signed, Wiley Covington MD [facility] Medicine Progress Note Patient: Markus Nava, [...] and Status--Accepted/Reserved [facility] [address] [place] [address] nidia [facility] [address] [place] [address] CM updated in Rounds. Patient discharge anticipated early next week- INR hold. Patient has home health/home infusion arranged by [facility]. Home Health -- only accepting agency has nursing available for SOC early next week (no weekend availability). CM contacted patient's Tool Chaser Office-Dr Maldonado with [facility] to verify ability to continue managing coumadin/INR when discharged. CM will continue follow up and assist with discharge planning. Radha KEN Clinical Road Mechanic [facility] Images from the original note were not [...] -please set him up with his outpatient special officer automat in [place] to be seen within 1 month of [...] to PO amio. -currently in rate-controlled AF -QEX8VK7-HXIr8 is 3, continue systemic AC with warfarin [...] early evening heparin 14 Units/kg/hr (06/14/23 1314) [id number]-ILLq Score for Atrial Fibrillation Stroke Risk Age in Years: 75+ Sex: Male CHF History: Yes Hypertension History: No Stroke/TIA/Thromboembolism History: No Vascular Disease History: No Diabetes History: No HNT3CK8-RADw Score: 3 Complexity. Thank you for this consult. Please call with questions. We will continue to follow along. [facility] Consult Service Phone: [phone] Department of Pharmacy Pharmacokinetics Progress Note Patient: Markus Nava Room/Bed: 70/A Assessment and Plan: Based upon drug level [...] with prosthetic/mechanical AV endocarditis FER (06/05/2023) at [facility] with 1.1cm x 0.7cm mobile vegetation on subaortic valvular lesion without surgical candidacy upon transfer to [facility]. 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 Kelvin Soliz (ID [...] Clinic (Please ensure patient is enrolled in [facility] prior to discharge) If the patient is being [facility] we will defer ID Care to the Infectious Disease Providers at the [facility] facility. Please instruct the facility that [...] on 08/02/2023 at 10:00AM. Asha Bundy MD [facility] Medicine Progress Note Patient: Markus Nava, [...] pulm edema S/w Wanda Boyle [facility] who informed me that if [...] a 78 y.o. 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 MSSA bacteremia with prosthetic/mechanical AV endocarditis FER (06/05/2023) at [facility] with 1.1cm x 0.7cm mobile vegetation on subaortic valvular lesion. Blood cultures initially positive on 06/02/2023. Started on intermittent Cefazolin with Gentamicin prior to transfer to [facility]. 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 For [...] as noted above. Kelvin Soliz MD, PhD Superintendent Compressor Stationscheck writer salesperson Division of Infectious Diseases Images from the [...] Please set him up with his outpatient special officer automat in [place] to be seen within 1 month of [...] per BP tolerance for rate control. - [id number]-RHGo0 is 3, continue systemic AC with warfarin [...] Daily early evening heparin 15 Units/kg/hr (06/12/232106) NTP5OR9-ZZOg Score for Atrial Fibrillation Stroke Risk Age in Years: 75+ Sex: Male CHF History: Yes Hypertension History: No Stroke/TIA/Thromboembolism History: No Vascular Disease History: No Diabetes History: No ZCY4VY2-CATz Score: 3 Complexity. Thank you for this consult. Please call with questions. We will continue to follow along. CHEO [facility] Cardiology Consult Service Phone: [phone] [facility] Medicine Progress Note Patient: Markus Nava, [...] 20/1.12/101/27/96 (06/12 431) Ptt/Pt/Inr: 63.5/17.7/1.5 (06/12 431-06/12 1239) Cxr pulm edema Images from the original [...] Please set him up with his outpatient special officer automat in [place] to be seen within 1 month of [...] per BP tolerance for rate control. - [id number]-YMNn5 is 3, continue systemic AC with warfarin [...] Intake/Output Summary (Last 24 hours) at 06/12/2023 0747 Last data filed at 06/12/2023 0633 Gross [...] early evening heparin 12 Units/kg/hr (06/12/23 0633) NVQ9AF1-VJNh Score for Atrial Fibrillation Stroke Risk Age in Years: 75+ Sex: Male CHF History: Yes Hypertension History: No Stroke/TIA/Thromboembolism History: No Vascular Disease History: No Diabetes History: No BYS2WS6-EYZc Score: 3 Thank you for this consult. Please call with questions. We will continue to follow along. CHEO [facility] Cardiology Consult Service Phone: [phone] Department of Pharmacy Antimicrobial Stewardship Documentation Note [...] the following recommendations are based on [facility]'s Diagnosis and Management of Staphylococcus aureus [...] further questions. Name: Haley Mahmood RPH Phone: [phone] Date/Time: 06/12/2023 7:24 AM Discharge Plan Expected Discharge Date: 06/13/2023 Referred Level of Care: Home Health/Home Infusion Barriers: Cultures, Final ID recs/Antibiotic plan, PICC Current Referrals and Status [facility] assisting with Home Health/Home Infusion referrals. CM will continue following for discharge planning. Radha KEN Clinical Road [facility] Hospital Medicine Progress Note Patient: Markus [...] who had not responded as of yet. Bianca Chung PACC RN Images from the original note [...] Please set him up with his outpatient special officer automat in [place] to be seen within 1 month of [...] rate control with BB and amiodarone - [id number] is 3, continue systemic AC with warfarin [...] 29.46 kg/m . LABS Na/K+/Phos/Mg/Ca: --/4.2/--/2.0/-- (06/11 033) No results found for: BNP Lab Results [...] early evening heparin 11 Units/kg/hr (06/11/23 0800) [id number] Score for Atrial Fibrillation Stroke Risk Age in Years: 75+ Sex: Male CHF History: Yes Hypertension History: No Stroke/TIA/Thromboembolism History: No Vascular Disease History: No Diabetes History: No [id number] Score: 3 Thank you for this consult. Please call with questions. We will continue to follow along. CHEO Adamson Cardiology Consult Service Phone: [phone] Images from the original note were not included. INFECTIOUS DISEASE FOLLOW-UP NOTE IDENTIFYING INFORMATION PATIENT: Markus Nava REFERRING PROVIDER: Heike Milan MD ADMIT DATE: 06/06/2023 TODAY'S DATE: 06/11/2023 REASON FOR CONSULT 78y M with hx of aortic valve replacement now with MSSA bacteremia and AV endocarditis ASSESSMENT Markus Nava is a 78 y.o. 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 MSSA bacteremia with prosthetic/mechanical AV endocarditis FER (06/05/2023) at [facility] with 1.1cm x 0.7cm mobile vegetation on subaortic valvular lesion. Blood cultures initially positive on 06/02/2023. Started on intermittent Cefazolin with Gentamicin prior to transfer to [facility]. 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) complicated [...] 06/10/2023 Microbiologic Data (personally reviewed): Blood (06/02/2023, [facility]): MSSA Blood (06/06/2023): MSSA (Line & Peripheral) [...] 78M with history of interaction precluding prior yocha dehe aortic valve streptococcal infective endocarditis s/p Ross procedure (1996) complicated by graft dilation and aortic insufficiency s/p Bentall procedure/prosthetic mechanical aortic valve replacement who was transferred from [facility] after presenting there with fevers and rigors [...] course of IV antimicrobials and likely subsequent correction oral suppression. For now, continue IV cefazolin by continuous infusion -- anticipate 6-8 week course from durable blood culture clearance (current day 1 = 06/08/23) with likely subsequent chronic oral suppression. Continue gentamicin for synergy (important to monitor renal function and drug levels; appreciate pharmacy assistance and monitoring while on this regimen) -- plan for 2-week course. Kelvin Soliz MD, PhD Superintendent Compressor Stationscheck writer salesperson Division of Infectious Diseases [facility] Medicine Progress Note Patient: Markus Nava, [...] Pharmacokinetics Progress Note Patient: [facility] Assessment and Plan: Based upon drug [...] further questions. Name: Kelvin Pitts RPH Phone: [phone] Date/Time: 06/10/2023 3:10 PM Images from the [...] Please set him up with his outpatient special officer automat in [place] to be seen within 1 month of [...] rate control with BB and amiodarone - [id number] is 3, continue systemic AC with warfarin [...] Daily early evening heparin 14 Units/kg/hr (06/10/23 0731) [id number] Score for Atrial Fibrillation Stroke Risk Age in Years: 75+ Sex: Male CHF History: No Hypertension History: Yes Stroke/TIA/Thromboembolism History: No Vascular Disease History: No Diabetes History: No [id number] Score: 3 Thank you for this consult. Please call with questions. We will continue to follow along. Plan of care developed in collaboration with attending special officer automat Dr. Potter. CHEO Katz Cardiology Consult Service Phone: [phone] Hospital Medicine Progress Note Patient: Markus Nava, [...] Please set him up with his outpatient special officer automat in [place] to be seen within 1 month of [...] rate control with BB and amiodarone - [id number] is 3, home warfarin on hold currently [...] Oral Daily heparin 15 Units/kg/hr (06/09/23 0647) [id number] Score for Atrial Fibrillation Stroke Risk Age in Years: 75+ Sex: Male CHF History: No Hypertension History: Yes Stroke/TIA/Thromboembolism History: No Vascular Disease History: No Diabetes History: No [id number] Score: 3 Thank you for this consult. Please call with questions. We will continue to follow along. Plan of care developed in collaboration with attending special officer automat Dr. Potter. CHEO Katz Cardiology Consult Service Phone: [phone] BRIEF NUTRITION NOTE: Current Diet Orders Procedures DIET HEART HEALTHY - 4 GM SODIUM Standing Status: Standing Number of Occurrences: 1 Pt with no significant nutrition changes over the past week. Tolerating diet with adequate po intake. No notable wt changes. opthalmic tech will continue to follow/assist prn. CONNOR SanchezR Pager: [phone] [facility] Medicine Progress Note Patient: Markus Nava, [...] and cognition Data Review WBC/Hgb/Hct/Plts: 15.06/10.2/32.6/226 (06/08 011) Na/K+/Phos/Mg/Ca: 137/3.9/--/2.0/-- (06/08 110) Bun/Creat/Cl/CO2/Glucose: 20/0.92/103/25/116 (06/08 [...] appropriate follow-up. Please contact our offices at [phone] to schedule. This patient was discussed with Dr. Titi Sabillon MD. We will sign off. Please call with any additional questions or concerns. Thank you. CHEO Perdue [facility] Cardiothoracic Surgery Inpatient Nurse Practitioner Phone #[phone] PACC Coordination Note Patient received in handoff from therapeutic case manager for potential homecare services. Referrals place in aidin, awaiting responses. Will continue to follow with therapeutic case manager for plan of care. PACC Home Health [...] assist with discharge planning. Radha KEN Clinical Road [facility] Department of Pharmacy Pharmacokinetics Progress Note Patient: Андрей Tidwell Room/Bed: [facility] Assessment and Plan: Based upon drug level [...] further questions. 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 IADL History IADLs: independent Primary Language: Portuguese [...] Assessment: Transfer Assessment: Sit to Stand Transfer Citrus Level: Sit->Stand: modified independence Skilled Rationale: Verbal cues Functional Mobility: Functional Mobility Citrus Level: Functional Mobility/Gait: supervision Functional Mobility Skilled Rationale: Verbal cues CURRENT AM-PAC Daily Activity Inpatient Short Form Putting on/Taking [...] PROJECTED AM-PAC Activity Functional Limitation/Modifier: 0.00% - CH Assessment & Plan: Patient was admitted for [...] Acute Physical Therapy Evaluation Prior to Admission [facility] score(s): PRIOR LEVEL AM-PAC Mobility Raw Score: 24 Current AM-PAC score(s): CURRENT AM-PAC Mobility Raw Score: 21 Based on the Gait speed, 5xSTS, AM-PAC score(s) and PT clinical judgment, patient is a good candidate for discharge to Home Barriers to discharge home: None Highest Level of activity achieved on this date Gait Citrus Level: Gait: contact guard assist Ambulation Distance (Feet): (430ft) no AD, no LOB Mobility equipment available at home: none used ADL equipment available at home: none Equipment needed for discharge: none Current therapy frequency recommendation in acute: Therapy Frequency: no therapy warranted Activity Recommendations for outside of rehab session: Ambulate in hallways with RN or MANAGER SHIPPING x3 daily Precautions and Weightbearing Status: Existing [...] Equipment Available: none 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 Function Prior level ADL Overview: Independent with all ADLs Dominant Hand: Ambidextrous, Left Bed Mobility/Transfers: independent Ambulation Skills: independent Assistive Device: none used Level of Ambulation: community 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 Objective/Observation: Vitals/Vitals Responses to Treatment: Vitals monitored [...] width Transfer Assessment: Sit to Stand Transfer Citrus Level: Sit->Stand: supervision Skilled Rationale: Hand placement, Verbal cues, Cues for increased safety, Facilitate anterior shift Skilled Intervention/Details: Sit->Stand: cues for STS mechanics and increased safety Stand to Sit Transfer Citrus Level: Stand->Sit: supervision Skilled Rationale: Hand placement, Verbal cues, Technique of activity Gait/Functional Mobility: Gait Assessment Citrus Level: Gait: contact guard assist Ambulation Distance (Feet): (430ft) Gait Deviations Identified: decreased david, decreased step length Gait Skilled Rationale: verbal, upright posture Skilled Intervention/Details - Gait: Cues for equal step length Stairs: Stairs Assessment Citrus Level: Stair Negotiation: not tested Outcome Score(s): [...] risk4 > 15 seconds: recurrent falls2 1TieBijal alndry, Eddie, H., et al. (2008). 2BMehdi zimmer, Zack Farah, et al. (2010). 3BMehdi zimmer Miljkovic, D., et al. (2008). 4DBj loyola, Russ ABelgcia Mayorga, et al. (2011). Pt with average gait speed of 1.1 meters/sec on this date during testing, placing patient as able to perform community ambulation as seen in the chart below. Walking speed classification Household ambulation Limited Community ambulation Community ambulation Cross street safely 0 - 0.4 meter/sec 0.4 - 0.8 meter/sec 0.8 - 1.3 meter/sec >1.4 meter/sec Dylan Marc, Quinn Veloz (2015) CURRENT [facility] Basic Mobility Inpatient Short Form Turning over in bed: 4 - No Assistance Sitting/standing from chair: 4 - No Assistance Moving from lying on back to sittin - No Assistance Moving to and from bed to chair: 3 - A Little Assistance Walk in hospital room: 3 - A Little Assistance Climbing 3-5 steps with a railin - A Little Assistance CURRENT [facility] Mobility Raw Score: 21 CURRENT [facility] Mobility Functional Limitation/Modifier: 28.97% Currently Impaired [...] PO amio. Currently in rate-controlled AF. - [id number] is 3, on heparin gtt - Recommend [...] Oral Daily heparin 14 Units/kg/hr (06/08/23 0905) [id number] Score for Atrial Fibrillation Stroke Risk Age in Years: 75+ Sex: Male CHF History: No Hypertension History: Yes Stroke/TIA/Thromboembolism History: No Vascular Disease History: No Diabetes History: No [id number] Score: 3 Thank you for this consult. Please call with questions. We will continue to follow along. Amisha Perez APRN-SAL[employer] Cardiology Consult Service Phone: [phone] Images from the original note were not included. INFECTIOUS DISEASE FOLLOW-UP NOTE IDENTIFYING INFORMATION PATIENT: Markus Nava REFERRING PROVIDER: Heike Milan MD ADMIT DATE: 06/06/2023 TODAY'S DATE: 06/08/2023 REASON FOR CONSULT 78y M with hx of aortic valve replacement now with MSSA bacteremia and AV endocarditis ASSESSMENT Markus Nava is a 78 y.o. 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 MSSA bacteremia with prosthetic/mechanical AV endocarditis FER (06/05/2023) at [facility] with 1.1cm x 0.7cm mobile vegetation on subaortic valvular lesion. Blood cultures initially positive on 06/02/2023. Started on intermittent Cefazolin with Gentamicin prior to transfer to [facility] on 06/06/2023. 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) complicated [...] 06/08/2023 Microbiologic Data (personally reviewed): Blood (06/02/2023, [facility]): MSSA Blood (06/06/2023): MSSA (Line & Peripheral) [...] MD, PhD Division of Infectious Diseases [facility] Hospital Medicine Progress Note Patient: Markus Nava, [...] No Spouse: No (Thai Lin Significant Other [phone]) Adult Child(alberto), List All Adult Children: Yes Name and Contact information: Dominique Landon [phone] (patient is not and has one adult [...] Yes Provider or Clinic that manages Anticoagulation?: [facility] manages No Pharmacies Listed Storage Architect Does the patient or sales development representative express financial concerns? : No Employed?: Retired Coping/Stress Concerns about patient s coping and stress?: No Concerns about patient s caregiver s coping and stress?: Unable to Assess Values and Beliefs Cultural or rastafari practices that may impact discharge planning and/or medical care?: No Initial Discharge Planning Anticipated discharge disposition: Home with Infusion Transportation Available for Discharge: Private Vehicle, Family or Friend Anticipated DME: none Anticipated Services at Discharge: Outpatient follow up, Jail Patient Assessment Completed: Initial Expected Discharge Date: 06/12/2023 Discharge Planning Summary CM met with patient to complete initial assessment Anticipate discharge home with outpatient follow up vs home with home infusion and outpatient follow up Case Management Plan 1.Role of Clinical Road Mechanic explained while admitted to [facility] 2.PCP/Specialist/pharmacy information updated as needed 3. Patient demographic/address/emergency contact information verified 4.Clinical Road Mechanic will continue to follow with medical team to coordinate discharge planning. Radha KEN Clinical [facility] Department of Pharmacy Admission Medication Reconciliation Note [...] further questions. Name: Binu Chauhan Phone #: [phone] Date/Time: 06/07/2023 10:07 AM Time Spent: 25 minutes Associated attestation - Judson Parsons RPH - 06/07/2023 1:16 PM EST Department of Pharmacy Admission Medication Reconciliation Note Patient: Markus Nava Room/Bed: 7032/A I have reviewed the home medication list with the Canal Boat Captain. The home medication list status is: complete. A call to the pharmacy was not needed because the information compiled from listed sources corroborates the patient/caregiver interview. All changes to the home medication list have been updated in [facility]. Updated FELLER MACHINE OPERATOR Med List: Prior to Admission Medications Prescriptions [...] with any further questions. Name: Judson Parsons [facility] Phone #: [phone] Date/Time: 06/07/2023 1:16 PM Occupational Therapy Attempt Note 06/07/2023 OT Therapy Completed: Attempted Attempted Reason: Patient is not medically optimized to tolerate therapy program Karthik Downey OT Time In: 45 Time Out: 744 Total Visit Time: 0 minutes Total Treatment Time (skilled, billable minutes): 0 minutes Physical Therapy Attempt Note 06/07/2023 PT Therapy Completed: Attempted Attempted Reason: Other (see comments) (Pending further medical work-up) PT will follow as medically appropriate. Ross Stone, PT Time In: 731 Time Out: 0732 Total Visit Time: 0 minutes Total Treatment Time (skilled, billable minutes): 0 minutes documented in this encounter [facility] 06-19-2023 Nurse Note Report called to [facility] 06-16-2023 Plan of care note Problem: Patient [...] factors/behavior modification for fall/injury prevention Outcome: Ongoing [facility] 06-16-2023 Consult note Formatting of th [...] if new bleeding is noted. Please page #[phone] for issues, thanks [facility] 06-16-2023 Consult note Formatting of th [...] if new bleeding is noted. Please page #[phone] for issues, thanks Report of PICC Consultation [...] the following issues with the ordering Clinician: Procedure explained to patient. Anatomical distortion to interfere with placement: nono Arm preference for venous access: Right Arm Patient is alert, cooperative, no distress, appears stated age Patient Teaching: Yes Family Teaching: No [place] Protocol/Time Out Completed under Procedure Documentation Step [...] yes Care of specimens (if applicable): N/A [place] Protocol Verification Name of Practitioner attesting all steps of the [place] Protocol have been completed: jovani Pager: [phone] Pre Procedure Relevant lab results available: Yes [...] (medial side of arm), right Device/Lot Number: Group Billing Coordinator/Lot Number: [id number] Size/Length: 4 Fr Inserted Catheter Length (cm): [...] trauma): N/A Before the procedure, did the center machine operator Document informed consent. Yes Perform timeout. Yes 3. Software Support Specialist: If enter sterile field, uses sterile gown and gloves, cap, mask/eye protection. N/A 4. Prep site with ChloraPrep for 30 sec minimum (if femoral 120 sec minimum). Yes 5. Sterile technique to drape patient from head to toe. Yes During the procedure, did the center machine operator Maintain a sterile field. Yes Obtain a qualified crook operator IF 3 unsuccessful sticks. (except if emergent); document the number of attempts. N/A Change gloves: if a catheter was exchanged over a guide wire before handling the new sterile catheter. N/A Account for the guidewire at all times. Yes After the procedure, did the center machine operator Apply a sterile dressing immediately [...] Additional note: PICC pager [phone] PIV pager [phone] Associated Order(s): IP CONSULT TO DERMATOLOGY Assessment and Plan Blessing shiny plaque with hemorrhagic crust and dilated telangiectasias on right neck - This is consistent with a basal cell carcinoma. Basal cell carcinoma is treated in the outpatient setting with wide local excision vs. Mohs surgery -It is imperative that he follows up with a wire brush maker once discharged for definitive treatment. Offered patient follow up with [facility] derm, but he prefers to establish with a wire brush maker closer to home. If he is unable to find a wire brush maker closer to home, he should call [phone] to schedule an appointment with [facility] dermatology. robby you for allowing us to participate in the care of this patient. Our consult team will sign off today, 06/10/2023. Please contact the dermatology resident director information if you have any further questions. Haley Kenyon MD Dermatology Resident Consult Request neck lesion concern for basal cell carcinoma Requesting service: [facility] History of Present Illness. Patient is a [...] none Additional Summarized Information: Patient lives in [place] and would like to establish with a wire brush maker closer to his home for outpatient care. [...] []Oropharynx []Lymph []Periph Vascular All normal except: Blessing shiny plaque with hemorrhagic crust and dilated [...] volume) IVPB 60 mg Intravenous Q12HNS Kelvin Pitts [facility] Heparin 25,000 units in dextrose 5% 250 mL premix infusion 0-30 Units/kg/hr (Dosing Weight) Intravenous Continuous Heikejeff Milan MD 14.8 mL/hr at 06/10/23 1410 15 Units/kg/hr at 06/10/23 1410 LORazepam (ATIVAN) tablet 0.5 mg 0.5 mg Oral BID PRN Katiana Caberra MD 0.5 mg at 06/10/23 0742 magnesium [...] Heike Milan MD 6.5 mg at 06/09/23 220 Associated attestation - Lance Shepard MD - [...] stressed need for followup with his community wire brush maker, along with please call us if he [...] prophylaxis once he completes treatment. 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 Patient was admitted to [facility] 06/02/23-06/06/23 after presenting with fevers (Tmax 103F [...] surgery evaluation. Per his discharge summary from [facility], a repeat blood culture drawn from a [...] note, patient also had recent hospitalization at [facility] for lower GI bleed from 04/25/23-05/04/23. Colonoscopy [...] MD, PhD Division of Infectious Diseases [facility] Associated Order(s): IP CONSULT TO SURGERY - [...] mechanical valve. He was initially admitted to [facility] 06/02/23-06/06/23 with fevers and chills. He was found to have MSSA bacteremia and septic shock requiring levophed and stress dose steroids. He also had afib RVR and was started on an amiodarone gtt. 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 He was then transferred to [facility] for further management and surgical evaluation. We [...] RESULTS Heart Catheterization None available Echocardiogram FER OS 06/06/2023: EF 50%, normal LV size,, normal [...] with any additional questions or concerns. Laurie Frtiz APRN-[facility] Cardiac Surgery REBA Pager/Phone #[phone] Associated Order(s): IP CONSULT TO CARDIOLOGY CARDIOLOGY CONSULTATION NOTE IMPRESSION AND PLAN Mr. Nava is a 78 y.o. male who presents as a transfer from [facility] in the setting of MSSA endocarditis [...] is a 78 y.o. male admitted to [facility] and the Cardiology service has been consulted [...] his prosthetic infection. He was transferred to [facility] for further evaluation. Upon arrival patient was found resting comfortably in bed, denies any acute complaints and feels near his baseline. 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 S1 and S2 are slightly iregular. Hudson mechanical opening and closing valve sounds. No [...] as needed. documented in this encounter [facility] 06-16-2023 Consult note Formatting of th is [...] if new bleeding is noted. Please page #[phone] for issues, thanks Report of PICC Consultation [...] age Patient Teaching: Yes Family Teaching: No [place] Protocol/Time Out Completed under Procedure Documentation Step [...] yes Care of specimens (if applicable): N/A [place] Protocol Verification Name of Practitioner attesting all steps of the [place] Protocol have been completed: jovani Pager: [phone] Pre Procedure Relevant lab results available: Yes [...] (medial side of arm), right Device/Lot Number: Group Billing Coordinator/Lot Number: [id number] Size/Length: 4 Fr Inserted Catheter Length (cm): [...] inserted by jovani HAYNES and assisted by [email or web address] RN [X] Antimicrobial foam disc/dressing. [] Unable [...] trauma): N/A Before the procedure, did the center machine operator Document informed consent. Yes Perform timeout. Yes 3. Software Support Specialist: If enter sterile field, uses sterile gown and gloves, cap, mask/eye protection. N/A 4. Prep site with ChloraPrep for 30 sec minimum (if femoral 120 sec minimum). Yes 5. Sterile technique to drape patient from head to toe. Yes During the procedure, did the center machine operator Maintain a sterile field. Yes Obtain a qualified crook operator IF 3 unsuccessful sticks. (except if emergent); document the number of attempts. N/A Change gloves: if a catheter was exchanged over a guide wire before handling the new sterile catheter. N/A Account for the guidewire at all times. Yes After the procedure, did the center machine operator Apply a sterile dressing immediately [...] to reach POA Additional note: PICC pager [phone] PIV pager [phone] Associated Order(s): IP CONSULT TO DERMATOLOGY Assessment and Plan Blessing shiny plaque with hemorrhagic crust and dilated telangiectasias on right neck - This is consistent with a basal cell carcinoma. Basal cell carcinoma is treated in the outpatient setting with wide local excision vs. Mohs surgery -It is imperative that he follows up with a wire brush maker once discharged for definitive treatment. Offered patient follow up with [facility] derm, but he prefers to establish with a wire brush maker closer to home. If he is unable to find a wire brush maker closer to home, he should call [phone] to schedule an appointment with [facility] dermatology. robby you for allowing us to participate in the care of this patient. Our consult team will sign off today, 06/10/2023. Please contact the dermatology resident director information if you have any further questions. Haley Kenyon MD Dermatology Resident Consult Request neck lesion concern for basal cell carcinoma Requesting service: [facility] History of Present Illness. Patient is a [...] none Additional Summarized Information: Patient lives in [place] and would like to establish with a wire brush maker closer to his home for outpatient care. [...] []Oropharynx []Lymph []Periph Vascular All normal except: Blessing shiny plaque with hemorrhagic crust and dilated [...] IVPB 60 mg Intravenous Q12HNS Kelvin Pitts, [facility] Heparin 25,000 units in dextrose [...] stressed need for followup with his community wire brush maker, along with please call us if he [...] prophylaxis once he completes treatment. 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 Patient was admitted to [facility] 06/02/23-06/06/23 after presenting with fevers (Tmax 103F [...] surgery evaluation. Per his discharge summary from [facility], a repeat blood culture drawn from a [...] note, patient also had recent hospitalization at [facility] for lower GI bleed from 04/25/23-05/04/23. Colonoscopy [...] MD, PhD Division of Infectious Diseases [facility] Associated Order(s): IP CONSULT TO SURGERY - CARDIAC CARDIAC SURGERY CONSULT NOTE Reason for Consult: We were asked by Dr. Heike Milna MD to see Markus Nava and offer [...] mechanical valve. He was initially admitted to [facility] 06/02/23-06/06/23 with fevers and chills. He was found to have MSSA bacteremia and septic shock requiring levophed and stress dose steroids. He also had afib RVR and was started on an amiodarone gtt. 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 He was then transferred to [facility] for further management and surgical evaluation. We [...] any additional questions or concerns. Laurie Fritz APRN-[facility] Cardiac Surgery REBA Pager/Phone #[phone] Associated Order(s): IP CONSULT TO CARDIOLOGY CARDIOLOGY [...] is a 78 y.o. male admitted to [facility] and the Cardiology service has been consulted [...] his prosthetic infection. He was transferred to [facility] for further evaluation. Upon arrival patient was found resting comfortably in bed, denies any acute complaints and feels near his baseline. 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 S1 and S2 are slightly iregular. Hudson mechanical opening and closing valve sounds. No [...] metoprolol as needed. documented in this encounter [facility] 06-16-2023 Nurse Note PICC line continues to bleed from site. Able to flush and draw blood from it. Dressing changed once for leaking of blood that had pooled under dressing yesterday at around 0400. Bled again at 0500 through dressing onto bed. Cleaned around site after drawing AM labs and wrapped with gauze, secured with Kerlix and Coban. [facility] 06-15-2023 Plan of care note Problem: [...] factors/behavior modification for fall/injury prevention Outcome: Ongoing [facility] 06-15-2023 Plan of care note Patient anxious, requesting AM lorazepam dose early. Will order retime so that he receives it now. [facility] Work Phone: 06-14-2023 Consult note Formatting of [...] the following issues with the ordering Clinician: Procedure explained to patient. Anatomical distortion to interfere with placement: nono Arm preference for venous access: Right Arm Patient is alert, cooperative, no distress, appears stated age Patient Teaching: Yes Family Teaching: No [place] Protocol/Time Out Completed under Procedure Documentation Step [...] yes Care of specimens (if applicable): N/A [place] Protocol Verification Name of Practitioner attesting all steps of the [place] Protocol have been completed: jovani Pager: [phone] Pre Procedure Relevant lab results available: Yes [...] (medial side of arm), right Device/Lot Number: Group Billing Coordinator/Lot Number: [id number] Size/Length: 4 Fr Inserted Catheter Length (cm): [...] trauma): N/A Before the procedure, did the center machine operator Document informed consent. Yes Perform timeout. Yes 3. Software Support Specialist: If enter sterile field, uses sterile gown and gloves, cap, mask/eye protection. N/A 4. Prep site with ChloraPrep for 30 sec minimum (if femoral 120 sec minimum). Yes 5. Sterile technique to drape patient from head to toe. Yes During the procedure, did the center machine operator Maintain a sterile field. Yes Obtain a qualified crook operator IF 3 unsuccessful sticks. (except if emergent); document the number of attempts. N/A Change gloves: if a catheter was exchanged over a guide wire before handling the new sterile catheter. N/A Account for the guidewire at all times. Yes After the procedure, did the center machine operator Apply a sterile dressing immediately after insertion. Yes Document date and time on the dressing. Yes Perform hand hygiene. Yes All staff wore a mask until sterile dressing placed. Yes Dispose sharps immediately after the procedure. Yes I have completed the Central Venous Catheter Insertion Checklist. [facility] 06-14-2023 Plan of care note Problem: Patient [...] factors/behavior modification for fall/injury prevention Outcome: Ongoing [facility] 06-13-2023 Consult note Formatting of th is [...] this patient. Vascular Access Team [phone] [facility] 06-11-2023 Plan of care note Problem: Patient Care Overview Goal: Plan of Care Review Outcome: Ongoing Goal: Individualization & Mutuality Outcome: Ongoing Goal: Discharge Needs Assessment Outcome: Ongoing Goal: Interdisciplinary Rounds/Family Conf Outcome: Ongoing [facility] 06-11-2023 Nurse Note 06/11/23 1451 Patient Choice [...] infusion services: [facility], [facility] [address] [place] [address] Fax: [phone] Addendum at [phone]: Patient will also use [facility] for infusion pharmacy: [facility], an [facility] [address] [place] [address] NATAN Mills RN [facility] 06-11-2023 Consult note Formatting of th is [...] to reach POA Additional note: PICC pager [phone] PIV pager [phone] [facility] 06-10-2023 Consult note Associated Order (s): IP CONSULT TO DERMATOLOGY Assessment and Plan Blessing shiny plaque with hemorrhagic crust and dilated telangiectasias on right neck - This is consistent with a basal cell carcinoma. Basal cell carcinoma is treated in the outpatient setting with wide local excision vs. Mohs surgery -It is imperative that he follows up with a wire brush maker once discharged for definitive treatment. Offered patient follow up with [facility] derm, but he prefers to establish with a wire brush maker closer to home. If he is unable to find a wire brush maker closer to home, he should call [phone] to schedule an appointment with [facility] dermatology. robby you for allowing us to participate in the care of this patient. Our consult team will sign off today, 06/10/2023. Please contact the dermatology resident director information if you have any further questions. Haley Kenyon MD Dermatology Resident Consult Request neck lesion concern for basal cell carcinoma Requesting service: [facility] History of Present Illness. Patient is a [...] none Additional Summarized Information: Patient lives in [place] and would like to establish with a wire brush maker closer to his home for outpatient care. [...] []Oropharynx []Lymph []Periph Vascular All normal except: Blessing shiny plaque with hemorrhagic crust and dilated [...] IVPB 60 mg Intravenous Q12HNS Kelvin Pitts, [facility] Heparin 25,000 units in dextrose [...] evening Heike Milan MD 6.5 mg at 06/09/233 Associated attestation - Lance Shepard MD - [...] We offered outpt followup with us at [facility] for excision but pt declines and would prefer to be treated closer to home. We stressed need for followup with his community wire brush maker, along with please call us if he has any problems accessing care. Lance Shepard MD Dermatology [facility] Work Phone: 06-08-2023 Plan of care note Problem: Patient Care Overview Goal: Plan of Care Review Outcome: Ongoing Flowsheets (Taken 06/08/20232026) Plan Of Care Reviewed With: patient Goal: Individualization & Mutuality Outcome: Ongoing Problem: Fall/Trauma/Injury Risk (Adult) Goal: Fall/Trauma/Injury Risk: Absence of Trauma/Injury/Falls Description: Patient will demonstrate the desired outcomes. Outcome: Ongoing [facility] 06-08-2023 Plan of care note Problem: OT - Endurance Goal: Endurance Functional Mobility - Patient will complete distance needed for common household mobility with no greater than 1 rest breaks for improved tolerance to safely complete I/ADL's Outcome: Ongoing [facility] 06-08-2023 Plan of care note Problem: PT - General Goals Goal: Ambulation - Patient will ambulate 250 feet with independence and without an assistive device to improve ability to safely navigate home and community. Outcome: Adequate for Discharge [facility] 06-08-2023 Plan of care note Problem: Patient Care Overview Goal: Plan of Care Review Outcome: Ongoing Goal: Individualization & Mutuality Outcome: Ongoing Goal: Discharge Needs Assessment Outcome: Ongoing Goal: Interdisciplinary Rounds/Family Conf Outcome: Ongoing [facility] 06-07-2023 Hospital Discharge instructions Xu Gaines RN - 06/07/2023 11:55 AM EST Patient Experience Survey Reminder You may receive a survey in the mail within a few weeks regarding your hospitalization. This helps us to improve the care and services we provide at [facility]. We truly appreciate you taking the time to fill this out. We particularly welcome any specific comments you may have (good or bad!) regarding your experience at [facility] so that we may use them to continue to strive towards excellence for our patients. PICC Referral for Patient Continuity of Care PICC Line - Single Lumen 06/14/23 1132 basilic vein (medial side of arm), right 4 Fr (Active) 06/14/23 1132 Present On Admission : no Lumen 1: Lumen 2: Lumen 3: purple Location: basilic vein (medial side of arm), right Device/Lot Number: Group Billing Coordinator/Lot Number: [id number] Size/Length: 4 Fr Inserted Catheter Length (cm): [...] Information For issues or questions call the [facility] PICC Service. -[facility] PICC SERVICES. M-F, 7am to 5:30pm. Pager or leave a message on the answering machine . *Evening/Nights/Weekends and Holidays: The [facility] Stat Nurse will cover PICC Services at [facility] and may trouble shoot, repair and declott PICC lines. Pager . -The [facility] PICC Services. M-F, 8am to 6pm. Pager . *Evenings/Nights/Weekends and Holidays: Call . -[facility] PICC Services. Pager . documented in this encounter [facility] 06-07-2023 Hospital Discharge instructions Xu Gaines RN - 06/07/2023 11:55 AM EST Patient Experience Survey Reminder You may receive a survey in the mail within a few weeks regarding your hospitalization. This helps us to improve the care and services we provide at [facility]. We truly appreciate you taking the time [...] (medial side of arm), right Device/Lot Number: Group Billing Coordinator/Lot Number: [id number] Size/Length: 4 Fr Inserted Catheter Length (cm): [...] Information For issues or questions call the [facility] PICC Service. -[facility] PICC SERVICES. M-F, 7am to 5:30pm. Pager or leave a message on the answering machine . *Evening/Nights/Weekends and Holidays: The [facility] Stat Nurse will cover PICC Services at [facility] and may trouble shoot, repair and declott PICC lines. Pager . -The [facility] P[facility]. M-F, 8am to 6pm. Pager . *Evenings/Nights/Weekends and Holidays: Call . -[facility] PICC Services. Pager . documented in this encounter [facility] 06-07-2023 Consult note Associated Order (s): IP [...] prophylaxis once he completes treatment. 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 Patient was admitted to [facility] 06/02/23-06/06/23 after presenting with fevers (Tmax 103F [...] surgery evaluation. Per his discharge summary from [facility], a repeat blood culture drawn from a [...] note, patient also had recent hospitalization at [facility] for lower GI bleed from 04/25/23-05/04/23. Colonoscopy [...] MD, PhD Division of Infectious Diseases [facility] Work Phone: 06-07-2023 Consult note Associated Order [...] mechanical valve. He was initially admitted to [facility] 06/02/23-06/06/23 with fevers and chills. He was found to have MSSA bacteremia and septic shock requiring levophed and stress dose steroids. He also had afib RVR and was started on an amiodarone gtt. 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 He was then transferred to [facility] for further management and surgical evaluation. We [...] any additional questions or concerns. Laurie Fritz APRN-[facility] Cardiac Surgery REBA Pager/Phone #[phone] [facility] 06-07-2023 Consult note Associated Order (s): IP CONSULT TO CARDIOLOGY CARDIOLOGY CONSULTATION NOTE IMPRESSION AND PLAN Mr. Nava is a 78 y.o. male who presents as a transfer from [facility] in the setting of MSSA endocarditis [...] is a 78 y.o. male admitted to [facility] and the Cardiology service has been consulted [...] his prosthetic infection. He was transferred to [facility] for further evaluation. Upon arrival patient was found resting comfortably in bed, denies any acute complaints and feels near his baseline. 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 S1 and S2 are slightly iregular. Hudson mechanical opening and closing valve sounds. No [...] control. Increase dose of metoprolol as needed. [facility] Work Phone: 06-06-2023 Plan of care note Problem: Patient Care Overview Goal: Plan of Care Review Outcome: Ongoing Goal: Individualization & Mutuality Outcome: Ongoing Goal: Discharge Needs Assessment Outcome: Ongoing Goal: Interdisciplinary Rounds/Family Conf Outcome: Ongoing [facility] 06-06-2023 History and physical note Hospital [...] transfer for endocarditis. Patient was admitted at [facility] 06/02/23 - 06/06/23. He initially presented with [...] for CT surgery evaluation. Upon arrival to [facility], patient complains of feeling cold. Also endorses [...] DULoxetine [address] Particles capsule Sig: Take 1 capsule by mouth daily. LORazepam 1 MG tablet Sig: Take 0.5 tablets by mouth every 6 hours as needed for Anxiety. Metoprolol 50 MG tab regular release Sig: Take 1 tablet by mouth 2 times daily. Warfarin 1 MG tablet Sig: Take 1.5 tablets by mouth daily. 6.5 mg daily on Sun, Sun, , , Sun, Sat 8mg on Suns ferrous sulfate 325 (65 Fe) MG Tab DR tablet Sig: Take 1 tablet by mouth daily. melatonin capsule Sig: Take 1 capsule by mouth at bedtime. predniSONE 20 MG tablet Sig: Take 1 tablet by mouth daily. warfarin 5 MG tablet Sig: Take 1 tablet by mouth daily. 6.5 mg daily on Sun, Sun, , , Sun, Sat 8mg on Suns Facility-Administered Medications: None Allergies Allergen Reactions Alprazolam [...] erythema Skin: No jaundice or rash Neuro: worsted winder 3-7, 9-11 intact and equal. Psych: Ox3, [...] freely mobile, stable appearing mechanical AV apparatus [facility] 06-06-2023 History and physical note Hospital [...] transfer for endocarditis. Patient was admitted at [facility] 06/02/23 - 06/06/23. He initially presented with [...] for CT surgery evaluation. Upon arrival to [facility], patient complains of feeling cold. Also endorses [...] DULoxetine [address] Particles capsule Sig: Take 1 capsule by mouth daily. LORazepam 1 MG tablet Sig: Take 0.5 tablets by mouth every 6 hours as needed for Anxiety. Metoprolol 50 MG tab regular release Sig: Take 1 tablet by mouth 2 times daily. Warfarin 1 MG tablet Sig: Take 1.5 tablets by mouth daily. 6.5 mg daily on Sun, Sun, , Th, Sun, Sat 8mg on Suns ferrous sulfate 325 (65 Fe) MG Tab DR tablet Sig: Take 1 tablet by mouth daily. melatonin capsule Sig: Take 1 capsule by mouth at bedtime. predniSONE 20 MG tablet Sig: Take 1 tablet by mouth daily. warfarin 5 MG tablet Sig: Take 1 tablet by mouth daily. 6.5 mg daily on Sun, Sun, , , Sun, Sat 8mg on Facility-Administered [...] erythema Skin: No jaundice or rash Neuro: worsted winder 3-7, 9-11 intact and equal. Psych: Ox3, [...] AV apparatus documented in this encounter [facility] 06-06-2023 History and physical note Hospital [...] transfer for endocarditis. Patient was admitted at [facility] 06/02/23 - 06/06/23. He initially presented with [...] for CT surgery evaluation. Upon arrival to [facility], patient complains of feeling cold. Also endorses [...] DULoxetine [address] Particles capsule Sig: Take 1 capsule by mouth daily. LORazepam 1 MG tablet Sig: Take 0.5 tablets by mouth every 6 hours as needed for Anxiety. Metoprolol 50 MG tab regular release Sig: Take 1 tablet by mouth 2 times daily. Warfarin 1 MG tablet Sig: Take 1.5 tablets by mouth daily. 6.5 mg daily on Sun, Sun, Tu, Th, Fri, Sat 8mg on Suns ferrous sulfate 325 (65 Fe) MG Tab DR tablet Sig: Take 1 tablet by mouth daily. melatonin capsule Sig: Take 1 capsule by mouth at bedtime. predniSONE 20 MG tablet Sig: Take 1 tablet by mouth daily. warfarin 5 MG tablet Sig: Take 1 tablet by mouth daily. 6.5 mg daily on Sun, Sun, Tu, Th, Sun, Sat 8mg on Suns Facility-Administered Medications: None Allergies Allergen Reactions Alprazolam [...] erythema Skin: No jaundice or rash Neuro: worsted winder 3-7, 9-11 intact and equal. Psych: Ox3, appropriate affect and cognition Lines: Right internal jugular CVC present, dressing c/d/i Data Review WBC/Hgb/Hct/Plts: 16.38/11.5/37.1/250 (06/06 2213) Na/K+/Phos/Mg/Ca: 140/3.5/--/1.7/-- (06/06 2213) Bun/Creat/Cl/CO2/Glucose: 16/0.95/103/28/94 (06/06 2213) Ptt/Pt/Inr: 41.9/26.7/2.5 (06/06 2213) I have reviewed the [facility] labs and imaging. Blood cultures 06/02 + MSSA in 2/ Blood cultures 06/03 NGTD FER O[facility] 06/06/2023: EF 50%, normal LV size,, normal RV size and systolic function, mild MV insufficiency, mild TV insufficiency, AV vegetation of the non coronary cusps measuring 1.1 cm x 0.7 cm freely mobile, stable appearing mechanical AV apparatus documented in this encounter [facility] 04-05-2021 Note [facility] 03-29-2021 Note [facility] 03-19-2021 Note Problem: Restraint: Goal: Remain safe while in restraints and once discontinued Outcome: Not Progressing Note: Restraint care provided Q2. Cont assessment on removal [facility] Evaluation note Diagnosis Endocarditis- Primary Endocarditis, [...] Urethral stricture, unspecified [facility]* Diagnosis Endocarditis- Primary Endocarditis, valve unspecified, [...] Urethral stricture, unspecified [facility]* Diagnosis Acute bacterial endocarditis Acute and subacute bacterial endocarditis [facility] (Routine) Specialty Diagnoses / Procedures Referred By Contac t Referred To Contact [facility] [address] [place] [address] Referral ID Status Reason Start Date Expiration Date Visits Re quested Visits Authorized * Transfer of Care (Routine) - New Request Specialty Diagnoses / Procedures Referred By Contac t Referred To Contact Social Work Diagnoses Acute bacterial endocarditis Wiley Covington MD [address] [address] Referral ID Status Reason Start Date Expiration Date V isits Requested Visits Authorized [id number] New Request 06/18/2023 07/12/2024 1 1 * (Routine) Specialty Diagnoses / Procedures Referred By Contac t Referred To Contact [facility] [address] [place] [address] Referral ID Status Reason Start Date Expiration Date Visits Re quested Visits Authorized * Consultation (Routine) - New Request Specialty Diagnoses / Procedures Referred By Contac t Referred To Contact Cardiac Surgery Diagnoses Acute bacterial endocarditis Wiley Covington MD [address] [address] Referral ID Status Reason Start Date Expiration Date V isits Requested Visits Authorized [id number] New Request 06/15/2023 07/09/2024 1 1 * Radiology (Routine) - New Request Specialty Diagnoses / Procedures Referred By Contac t Referred To Contact Diagnoses Acute bacterial endocarditis Procedures ECHOCARDIOGRAM TRANSESOPHAGEAL (FER) [place] ECHO TRANSESOPHAG R-T 2D W/PRB IMG ACQUISJ Gal&R Wiley Covington MD [address] [address] Referral ID Status Reason Start Date Expiration Date V isits Requested Visits Authorized [id number] New Request 06/15/2023 07/09/2024 1 1 * Consultation (Routine) - New Request Specialty Diagnoses / Procedures Referred By Contac t Referred To Contact Infectious Diseases Diagnoses Acute bacterial endocarditis Wiley Covington MD [address] [address] Referral ID Status Reason Start Date Expiration Date V isits Requested Visits Authorized [id number] New Request 06/15/2023 07/09/2024 1 1 * (Routine) - New Request Specialty Diagnoses / Procedures Referred By Contac t Referred To Contact Diagnoses Acute bacterial endocarditis Wiley Covington MD [address] [address] Referral ID Status Reason Start Date Expiration Date V isits Requested Visits Authorized [id number] New Request 06/15/2023 07/09/2024 1 1 * Radiology (Routine) - New Request Specialty Diagnoses / Procedures Referred By Contac t Referred To Contact Diagnoses Acute bacterial endocarditis Procedures ECHOCARDIOGRAM TRANSESOPHAGEAL (FER) [place] ECHO TRANSESOPHAG R-T 2D W/PRB IMG ACQUMECCA I&R Kelvin Soliz MD, PhD [address] [address] Referral ID Status Reason Start Date Expiration Date V isits Requested Visits Authorized [id number] New Request 06/13/2023 07/07/2024 1 1 * (Routine) Specialty Diagnoses / Procedures Referred By Contac t Referred To Contact [facility] [address] [place] [address] Referral ID Status Reason Start Date Expiration Date Visits Re quested Visits Authorized * Radiology (Routine) - New Request Specialty Diagnoses / Procedures Referred By Contac t Referred To Contact Procedures ECG Shirley Rossi, ALTERATION MANAGER-SALVAGE MECHANIC [address] [place], [place] [phone] Referral ID Status Reason Start Date Expiration Date V isits Requested Visits Authorized [id number] New Request 06/11/2023 07/05/2024 1 1 * (Routine) Specialty Diagnoses / Procedures Referred By Contac t Referred To Contact [facility] [address] [place] [address] Referral ID Status Reason Start Date Expiration Date Visits Re quested Visits Authorized * (Routine) Specialty Diagnoses / Procedures Referred By Contac t Referred To Contact [facility] [address] [place] [address] Referral ID Status Reason Start Date Expiration Date Visits Re quested Visits Authorized * (Routine) Specialty Diagnoses / Procedures Referred By Contac t Referred To Contact [facility] [address] [place] [address] Referral ID Status Reason Start Date Expiration Date Visits Re quested Visits Authorized * Unlisted Procedure Code (Routine) - Pending Review Specialty Diagnoses / Procedures Referred By Contac t Referred To Contact Procedures DVT/VTE RISK ASSESSMENT Katiana Cabrera MD [address] [place] [phone] Referral ID Status Reason Start Date Expiration Date V isits Requested Visits Authorized [id number] Pending Review 06/06/2023 06/30/2024 1 1 * Radiology (Emergency) - Pending Review Specialty Diagnoses / Procedures Referred By Contac t Referred To Contact Procedures ECG Katiana Cabrera MD [address] [place] [phone] Referral ID Status Reason Start Date Expiration Date V isits Requested Visits Authorized [id number] Pending Review 06/06/2023 06/30/2024 1 1 [facility] Summary Purpose Family History No Family [...] endocarditis Wiley Covington MD [address] [address] Referral ID Status Reason Start Date Expiration Date V isits Requested Visits Authorized [id number] New Request 06/18/2023 07/12/2024 1 1 Specialty Diagnoses / Procedures Referred By Contac t Referred To Contact [facility] [address] [place] [address] Referral ID Status Reason Start Date Expiration Date Visits Re quested Visits Authorized Specialty Diagnoses / Procedures Referred By Contac t Referred To Contact Cardiac Surgery Diagnoses Acute bacterial endocarditis Wiley Covington MD [address] [address] Referral ID Status Reason Start Date Expiration Date V isits Requested Visits Authorized [id number] New Request 06/15/2023 07/09/2024 1 1 Specialty Diagnoses / Procedures Referred By Contac t Referred To Contact Diagnoses Acute bacterial endocarditis Procedures ECHOCARDIOGRAM TRANSESOPHAGEAL (FER) [place] ECHO TRANSESOPHAG R-T 2D W/PRB IMG ACQUISJ I&R Wiley Covington MD [address] [address] Referral ID Status Reason Start Date Expiration Date V isits Requested Visits Authorized [id number] New Request 06/15/2023 07/09/2024 1 1 Specialty Diagnoses / Procedures Referred By Contac t Referred To Contact Infectious Diseases Diagnoses Acute bacterial endocarditis Wiley Covington MD [address] [address] Referral ID Status Reason Start Date Expiration Date V isits Requested Visits Authorized [id number] New Request 06/15/2023 07/09/2024 1 1 Specialty Diagnoses / Procedures Referred By Contac t Referred To Contact Diagnoses Acute bacterial endocarditis Wiley Covington MD [address] [address] Referral ID Status Reason Start Date Expiration Date V isits Requested Visits Authorized [id number] New Request 06/15/2023 07/09/2024 1 1 Specialty Diagnoses / Procedures Referred By Contac t Referred To Contact Diagnoses Acute bacterial endocarditis Procedures ECHOCARDIOGRAM TRANSESOPHAGEAL (FER) AK ECHO TRANSESOPHAG R-T 2D W/PRB IMG TRI I&R Kelvin Soliz MD, PhD [address] [place] [address] Referral ID Status Reason Start Date Expiration Date V isits Requested Visits Authorized [id number] New Request 06/13/2023 07/07/2024 1 1 Specialty Diagnoses / Procedures Referred By Contac t Referred To Contact Procedures DVT/VTE RISK ASSESSMENT Katiana Cabrera MD [address] [place] [phone] Referral ID Status Reason Start Date Expiration Date V isits Requested Visits Authorized [id number] Pending Review 06/06/2023 06/30/2024 1 1 Additional Source Comments (unrecognized sect ion and content) No Status Records FoundNo Status Records FoundNo Status Records FoundNo Status Records FoundNo Status Records Found INFORMATION SOURCE (unrecogn ized section and content) DATE CREATED AUTHOR 11/28/2017 [facility] DATE CREATED AUTHOR AUTHOR'S ORGANIZ ATION 03/07/2022 [facility] DATE CREATED AUTHOR AUTHOR'S ORGANIZ ATION 07/25/2023 [facility] DATE CREATED AUTHOR AUTHOR'S ORGANIZ ATION 06/23/2024 [facility] DATE CREATED AUTHOR AUTHOR'S ORGANIZ ATION 03/29/2025 [facility] Reason for Visit (unrecogniz ed section and content) Specialty Diagnoses / Procedures Referred By Lazaro guerrier Referred To Contact Diagnoses valve vegatation Katiana Cabrera MD [address] [place] [address] [facility] [address] [place] [address] Referral ID Status Reason Start Date Expiration Date Visits Re quested Visits Authorized [id number] 1 1 Specialty Diagnoses / Procedures Referred By Lazaro guerrier Referred To Contact Diagnoses Acute bacterial endocarditis Procedures ECHOCARDIOGRAM TRANSESOPHAGEAL (FER) [place] ECHO TRANSESOPHAG R-T 2D W/PRB IMG TRI [facility] Wiley Covington MD [address] [place] [address] Referral ID Status Reason Start Date Expiration Date V isits Requested Visits Authorized [id number] New Request 06/15/2023 07/09/2024 1 1 Scheduled [...] 60 mg, Oral, DAILY, First dose on Lisa 06/07/23 at 0900, Until Discontinued, Swallow capsule whole; [...] RN)2015 ($$New Bag$$ - Provider: Barbara Leigh RN)2016 (Rate/Dose Verify - Provider: Irena Hansen RN)2044 [...] Leigh RN)1800 (Due - Provider: Osiel Carrillo [facility]) Metoprolol (LOPRESSOR) tablet 50 mg 50 mg, Oral, 2 TIMES DAILY, First dose on Sun06/06/23 at 2245, Until Discontinued 0826 (Given - Provider: Samir Sesay RN)1733 (Given - Provider: Samir Sesay RN) 0910 (Given - Provider: Irena Hansen RN)1831 (Given - Provider: Irena Hansen RN) 0906 (Given - Provider: Asha Prakash RN)1700 (Due) Pantoprazole (PROTONIX) tablet DR 40 mg 40 mg, Oral, DAILY, First dose on Lisa 06/07/23 at 0900, Until Discontinued, Swallow whole; do not crush or chew., Indications: GERD 826 (Given - Provider: Samir Sesay, RN) 909 (Given - Provider: Irena Hansen, IVY) 09 (Given - Provider: Asha Prakash, RN) predniSONE (DELTASONE) tablet 15 mg 15 mg, Oral, DAILY, First dose (after last modification) on [facility] 06/16/23 at 0900, Until Discontinued 826 (Given - Provider: Samir Sesay, RN) 909 (Given - Provider: Irena Hansen, IVY) 905 (Given - Provider: Asha Prakash, RN) Tamsulosin HCl (FLOMAX) capsule 0.4 mg 0.4 mg, Oral, DAILY, First dose on Lisa 06/07/23 at 0900, Until Discontinued, Slow release product. Do not chew or crush 825 (Given - Provider: Samir Sesay RN) 909 (Given - Provider: Irena Hansen, IVY) 905 (Given - Provider: Asha Prakash, RN) warfarin (COUMADIN) tablet 6.5 mg 6.5 mg, Oral, DAILY EARLY EVENING, First dose (after last modification) on [place] 06/17/23 at 1800, Until Discontinued, Swallow tablet whole; do not crush, split or chew. Contact pharmacy if alternate route or dose is needed. 1733 (Given - Provider: Samir Sesay, RN) 1832 (Given - Provider: Irena Hansen, IVY) 1800 (Due) Continuous Medication Order 06/17/2023 06/18/2023 [...] Sesay RN)1347 (Rate/Dose Verify - Provider: Samir Sesay, RN)1350 (Rate/Dose Verify - Provider: Samir Sesay RN)1605 ($$New Bag$$ - Provider: Samir Sesay RN)2000 (Rate/Dose Verify - Provider: Barbara Leigh RN) 0025 (Rate/Dose Verify - Provider: Barbara Leigh RN)0610 (Rate/Dose Verify - Provider: Barbara Leigh RN)0826 (Stopped - Provider: Irena Hansen RN) PRN [...] EVERY 12 HOURS NON-STANDARD, First dose on Sun06/07/23 at 2100, Until Discontinued 0558 (Rate/Dose Verify [...] RN)2041 (Rate/Dose Verify - Provider: Asha Prakash RN)204 ($$New Bag$$ - Provider: Barbara Leigh RN)212 (Paused - Provider: Asha Prakash RN)212 (Restarted - Provider: Asha Prakash, RN) 0221 (Rate/Dose Verify - Provider: Barbara [...] RN)2015 ($$New Bag$$ - Provider: Barbara Leigh RN)2016 (Rate/Dose Verify - Provider: Irena Hansen RN)2044 (Stopped - Provider: Barbara Leigh RN) 912 ($$New Bag$$ - Provider: Irena Hansen RN)0958 (Stopped - Provider: Irena Hansen RN)2048 ($$New Bag$$ - Provider: Barbara Leigh RN)2119 (Stopped - Provider: Barbara Leigh RN) 905 ($$New Bag$$ - Provider: Asha Prakash RN)0933 (Stopped - Provider: Asha Prakash RN) LORazepam (ATIVAN) tablet 0.5 mg 0.5 mg, Oral, EVERY 12 HOURS, First dose (after last modification) on Sun06/15/23 at 1745, Until Discontinued 0556 (Given - Provider: Barbara Leigh RN)173 (Given - Provider: Samir Sesay RN) 06 (Given - Provider: Barbara Leigh RN)183 (Given [...] 09 (Given - Provider: Asha Prakash, IVY) Pantoprazole (PROTONIX) tablet DR 40 mg 40 mg, Oral, DAILY, First dose on Sun06/07/23 at 0900, Until Discontinued, Swallow whole; do not crush or chew., Indications: GERD 08 (Given - Provider: Samir Sesay RN) 09 (Given - Provider: Irena Hansen RN) 09 (Given - Provider: Asha Prakash, RN) predniSONE (DELTASONE) tablet 15 mg 15 mg, Oral, DAILY, First dose (after last modification) on Sun06/16/23 at 0900, Until Discontinued 826 (Given - Provider: Samir Sesay RN) 0910 (Given - Provider: Irena Hansen, IVY) 0906 (Given - Provider: Asha Prakash, RN) Tamsulosin HCl (FLOMAX) capsule 0.4 mg 0.4 mg, Oral, DAILY, First dose on Lisa 06/07/23 at 0900, Until Discontinued, Slow release product. Do not chew or crush 0826 (Given - Provider: Samir Sesay RN) 0910 (Given - Provider: Irena Hansen RN) 09 (Given - Provider: Asha Prakash, RN) warfarin (COUMADIN) tablet 6.5 mg 6.5 mg, Oral, DAILY EARLY EVENING, First dose (after last modification) on 06/17/23 at 1800, Until Discontinued, Swallow tablet whole; do not crush, split or chew. Contact pharmacy if alternate route or dose is needed. 8178 (Given - Provider: Samir Sesay RN) 1834 (Given - Provider: Irena Hansen RN) Continuous [...] RN)0610 (Rate/Dose Verify - Provider: Barbara Leigh RN)0826 (Stopped - Provider: Irena Hansen RN) PRN [...]
Care Teams (unrecognized sec tion and content) Global Analytics Head Relationship Specialty Start Date End Date Louie Burns DO [address] [place] [address] [address] [place] [address] PCP - General Family Medicine 06/06/23 Nidia Hernandez MD [address] [place] [address] PCP - Referring 1 Gastroenterology 06/07/23 Michael Maldonado MD [address] [place], [place] [address] [address] [address] [place] [address] PCP - Referring 2 Cardiovascular Disease 06/14/23 Jeff Kong, [facility] Pharmacist Infectious Disease 06/15/23 08/03/23 Kelvin Soliz MD, PhD [facility] [employer] [address] [place] [address] Infectious Disease Infectious Disease 06/15/23 08/03/23 Asha Bundy MD [address] [place] [address] Infectious Disease Infectious Disease 06/15/23 08/03/23 Global Analytics Head Relationship Specialty Start Date End Date Louie Burns DO [address] [place] [address] [address] [place] [phone] PCP - General Family Medicine 06/06/23 Nidia Hernandez MD [address] [place] [address] PCP - Referring 1 Gastroenterology 06/07/23 Michael Maldonado MD [address] [facility] [address] [place] [address] PCP - Referring 2 Cardiovascular Disease 06/14/23 Jeff Kong [facility] Pharmacist Infectious Disease 06/15/23 08/03/23 Kelvin Soliz MD, PhD [facility] [employer] [address] [place] [address] Infectious Disease Infectious Disease 06/15/23 08/03/23 Asha Bundy MD [address] [place] [address] Infectious Disease Infectious Disease 06/15/23 08/03/23 Global Analytics Head Relationship Specialty Start Date End Date Louie Burns DO [address] [place] [phone] PCP - General Family Medicine 06/06/23 Nidia Hernandez MD [address] [place] [address] PCP - Referring 1 Gastroenterology 06/07/23 Michael Maldonado MD [address] [facility] [address] [place], [place] [phone] PCP - Referring 2 Cardiovascular Disease 06/14/23 [...] BE BASED ON THE PRIMARY CLINICAL RECORDS. Intern [place] [facility]. provides no warranty or guarantee of the accuracy or completeness of information in this document.
[2025-05-12 21:11] LABS: Prothrombin Time (Protime)PT. 32.2 SECONDS (11.7-14.9)
[2025-05-12 21:30] VITALS: BP 155/81; PULSE 66; RESP 18; TEMP 36.8; O2SAT 96
== END 2025-05-12 22:45 | disposition home or self-care (01) ==
PROVIDERS: Emergency Provider Emergency Medicine; PCP Family Medicine; Visit Provider Emergency Medicine
DX: I83.892 Varicose veins of left lower extremity with other complications (principal); I48.0 Paroxysmal atrial fibrillation; Z87.891 Personal history of nicotine dependence; F41.9 Anxiety disorder, unspecified; E78.00 Pure hypercholesterolemia, unspecified; I10 Essential (primary) hypertension; Z79.01 Long term (current) use of anticoagulants; Z79.899 Other long term (current) drug therapy; Z95.2 Presence of prosthetic heart valve
CPT/HCPCS: 85610; 99284; A4216

== ENCOUNTER 2025-05-13 02:04 | Emergency (ER) | payer MEDICARE, OTHER, SELFPAY ==
[2025-05-13 02:06] VITALS: BP 122/52; PULSE 74; RESP 16; TEMP 37.3; O2SAT 99; BMI 29.7
[2025-05-13] MEDS: Lidocaine 2% (20 ml mdv) 20 ML Vial INFILT (02:32)
[2025-05-13] MEDS: Silver Nitrate (BKC) 1 EACH TOPICAL (02:33)
--- OUTSIDE RECORDS SUMMARY | 2025-05-13 02:36 | XMS RPT_ITS | CCD ---
Author Organization [facility] CliniSyar Care Team Providers Care Suction Plate Roller Hand Name Role Phone Kalie RN, Renee Krishnamurthy Unavailable [phone] Roula, IVY, Lori Veloz Unavailable Unavailabl e Kalie RN, Renee Krishnamurthy Unavailable [phone] Kalie RN, Renee Krishnamurthy Unavailable [phone] Kalie RN, Renee Krishnamurthy Unavailable [phone] Eugenie Jasmine Unavailable Unavailable VEE Wylie, Renee Veloz Unavailable [phone] Ghulam TORRES, Jovana Tierney Unavailable Markus Tran MD Unavailable Kalie RN, Renee Krishnamurthy Unavailable [phone] Kalie RN, Renee Krishnamurthy Unavailable [phone] PARANJAPE, RYAN Unavailable Unavailable PARANJAPE, RYAN Unavailable [...] IP CARDIOLOGY Consulting Unavailab le REQUEST, IP MARKET RESEARCH INTERN SERVICE Consulting Unavaila ble PROVIDER, UNKNOWN Attending [...] Unavailable Michael Maldonado MD Unavailable Alyssa Berger [facility], Jeff Tierney Unavailable Un available Heydi TORRES, [...] Unavailable Marsha, Louie Primary Care Unavailable Roof ETCHER ELECTROLYTIC, Kuldeep H Attending Unavailable Marsha, Louie Referring Unavailable Roof ETCHER ELECTROLYTIC, Kuldeep H Attending Unavailable Marsha, Louie Primary Care Unavailable Masrha, Louie Referring Unavailable Marsha, Louie Primary Care Unavailable Michael Maldonado Attending Unavailable Marsha, Louie Attending Unavailable Marsha, Louie Primary Care Unavailable Marsha, Louie Primary Care Unavailable CarmonaRoberto Attending Unavailable Roof ETCHER ELECTROLYTIC, Kuldeep H Referring Unavailable Roof ETCHER ELECTROLYTIC, Kuldeep H Attending Unavailable Marsha, Louie Primary Care Unavailable Roof ETCHER ELECTROLYTIC, Kuldeep H Referring Unavailable Roof ETCHER ELECTROLYTIC, Kuldeep H Attending Unavailable Marsha, Louie Primary Care Unavailable Marsha, Louie Attending Unavailable Marsha, Louie Primary Care Unavailable Marsha, Louie Referring Unavailable Marsha, Louie Attending Unavailable Marsha, Louie Primary Care Unavailable Marsha, Louie Referring Unavailable White, Krys L Admitting Unavailable WhiteKrys L Consulting Unavailable Marsha, Louie Primary Care Unavailable Braden Coto Attending Unavailable Chadd, Zhang Consulting Unavailable Roof ETCHER ELECTROLYTIC, Kuldeep H Attending Unavailable Marsha, Louie Primary Care Unavailable Roof ETCHER ELECTROLYTIC, Kuldeep H Referring Unavailable Marsha, Louie Attending Unavailable Marsha, Louie Primary Care Unavailable Marsha, Louie Referring Unavailable Marsha, Louie Primary Care Unavailable Jeancarlos Ritter Attending Unavailable Reina Carey Attending Unavailable Marsha, Louie Primary Care Unavailable Allergies Allergy Classification Reported Allergen(s) Allergy Type Date of Onset Reaction(s) Facility (18 sources) levoFLOXacin; Translations: [levofloxacin] drug allergy 3 passed out [facility] Work Phone: (4 sources) ALPRAZolam; Translations: [ALPRAZOLAM] Drug Allergy 1 [facility] Rep[facility] (1 source) fentaNYL Drug Allergy 4 Hallucination [facility] (1 source) fentaNYL Drug Allergy 5 [facility] Repository Medications Current Medications Medication [...] one po q 24 H DULOXETINE HCL [id number] Jovana Parmar MD ferrous sulfate 325 mg [...] tablet by mouth twice daily METOPROLOL TARTRATE [id number] Markus Tran MD Potassium Chloride (4 sources) [...] MG CR-TABS q 6 hrs prn ACETAMINOPHEN [id number] Keesha José LPN ALPRAZolam 0.5 mg oral tablet (20 sources) Benzodiazepine Start: 11-07-2016 XANAX 0.5 MG T ABS as needed ALPRAZOLAM [id number] Renee Wylie PA-C End: 08-21-2016 ALPRAZOLAM 0.5 MG TABS three times a day prn ALPRAZOLAM 26455414685 Keesha José LPN amiodarone hydrochloride 200 mg oral tablet (2 sources) Antiarrhythmic Start: 06-07-2023 End: 06-13-2023 AMIOdarone (PACERONE) tablet 200 mg 12 hr amoxicillin 1000 mg / clavulanate 62.5 mg extended release oral tablet (20 sources) Penicillin-class Antibacterial Start: 11-08-2016 take 1 tablet by mouth twice daily AUGMENTIN XR 1000-62.5 MG [id number] One tablet by mouth twice daily AMOXICILLIN-POT CLAVULANATE 11704165029 Renee Wylie PA-C Start: 11-08-2016 take 1 tablet by grisel th twice daily AUGMENTIN XR 1000-62.5 MG [id number]-TWV One tablet by mouth twice daily AMOXICILLIN-POT CLAVULANATE 56429641336 Renee Wylie PA-C Start: 11-08-2016 take 1 tablet by grisel th twice daily AUGMENTIN XR 1000-62.5 MG [id number]-MAT One tablet by mouth twice daily AMOXICILLIN-POT CLAVULANATE 99150021144 Renee Wylie PA-C Start: 08-07-2016 End: 10-06-2016 take 1 tablet by mouth once AMOXICILLIN-POT CLAVULANAT E 875-125 MG TABS one po q12 AMOXICILLIN-POT CLAVULANATE 41573951325 Jovana Parmar MD aspirin 81 mg delayed release oral tablet (20 sources) Nonsteroidal Anti-inflammatory Drug Start: 09-20-2010 End: 08-20-2013 take 1 tablet by mouth once daily ECOTRIN LOW STRENGTH 81 MG TBEC One tablet by mouth daily ASPIRIN 46760590620 Markus Tran MD Start: 09-20-2010 End: 08-20-2013 take 1 tablet by mouth once daily ECOTRIN LOW STRENGTH 81 MG TBEC One tablet by mouth daily ASPIRIN 78646195047 Markus Tran MD benzocaine 140 mg/ml / [...] One tablet by mouth daily CITALOPRAM HYDROBROMIDE 01917022822 Renee Wylie PA-C ertapenem 1000 mg injection (20 sources) Penem Antibacterial End: 08-07-2016 INVANZ 1 GM SOLR q 24 hrs ERTAPENEM SODIUM 13328239880 Finesse Stover Sisi MA End: 08-07-2016 INVANZ 1 GM SOLR q 24 hrs 20 18/08/05 ERTAPENEM SODIUM 98973841306 Finesse S Sisi MA INVANZ 1 GM SOLR q 24 hrs ERTAPENEM SODIUM 81234775427 Keesha José LPN INVANZ 1 GM SOLR q 24 hrs ERTAPENEM SODIUM 18935256720 Keesha José LPN End: 08-07-2016 INVANZ 1 GM SOLR q 24 hrs 20 18/08/05 ERTAPENEM SODIUM 04137360040 Finesse S Sisi MA Furosemide (4 sources) [...] twice daily as needed for anxiety LORAZEPAM [id number] Louie Jailene Marsha Start: 09-20-2010 take 1 tablet by grisel once daily LORAZEPAM 0.5 MG TABS One tablet by mouth daily LORAZEPAM 96793174835 Susanne Rios melatonin 3 mg oral tablet [...] One tablet by mouth daily PAROXETINE HCL 31365762646 Keesha José LPN pravastatin sodium 20 mg oral tablet (20 sources) HMG-CoA Reductase Inhibitor Start: 01-17-2012 End: 02-23-2014 take 1 tablet by mouth at bedtime PRAVASTATIN SODIUM 20 MG TABS One tablet by mouth at bedtime PRAVASTATIN SODIUM 43602228473 Abhijeet Kee MD 1000 ml sodium chloride [...] X 5 days per wk WARFARIN SODIUM 13510542271 Markus Tran MD Start: 09-20-2010 COUMADIN 5 MG TABS Take as directed-current dose is 6 mg daily WARFARIN SODIUM 70301175901 Renee Wylie PA-C Start: 09-20-2010 COUMADIN 1 MG TABS Take as directed: current dose: take one tablet by mouth daily Sat-Thurs. 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] Onset: 11-29-2023 Episodic Other aftercare (1 source) Encounter for therapeutic drug level monitoring; Translations: [Encounter for therapeutic drug level monitoring] Onset: 12-16-2024 Episodic Other aftercare (1 source) Other halfway (current) drug therapy; Translations: [Other 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 [facility] Medical History History of endocarditis Paroxysmal atrial fibrillation intermediate current use of anticoagulant Pure hypercholesterolemia Essential [...] the le (more content not included)... Normal [facility] HH, Hemoglobin AND Hematocri ton 02-27-2025 Hematocrit (Bld) [Volume fraction] 34.9 % Low 40-54 [facility] Comment on above: Performed By: #### L 100.0100, L500.2500 #### [facility] [address] [place], [address] Hemoglobin (Bld) [Mass/Vol] 12.0 g/dL Low 13.0-16.5 [facility] Comment on above: Performed By: #### L 100.0100, L500.2500 #### [facility] [address] [place], [address] Prothrombin Time w/INRon INR Coag (PPP) [Relative time] 3.2 {INR} Normal [facility] Comment on above: Performed By: #### L 100.0100, L500.2500 #### [facility] [address] [place], [address] PT Coag (PPP) [Time] 33.2 s High 11.7-14.9 [facility] Comment on above: Performed By: #### L 100.0100, L500.2500 #### [facility] [address] [place], [address] Cardiology Visit Reporton Cardiology Visit Report [facility] [address] [place] [address] OFFICE VISIT Date of Service: 12/16/24 MR#: [id number] Acct: [id number] Name: MARKUS NAVA Rep #: [id number] : 1945 Provider: JD daly Age/Sex: 79/M Location[place] [facility] Status: Signed HPI HPI History of Present [...] As you recall, he was admitted to [facility] on 04/05/2021 for respiratory failure [...] of respiratory distress. 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 Normal [facility] Chest PA and Lateralon 12-16 Chest PA and Lateral [facility] Imaging Services [address] [place], [place] [id number] Chest PA and Lateral MR#: [id number] Acct: [id number] Name: MARKUS NAVA Rep #: [id number] : 1945 M 79 From: Louie Ritter MD PCP: Dr. Louie Burns DO Status: REG CLI Study: Chest PA and Lateral Date of Exam: 12/16/24 Exam# [id number] Ordering Dr: Kuldeep Austin NP ETCHER ELECTROLYTIC-Deborah EXAM: XR Chest, 2 Views CLINICAL INDICATION: [...] decreased since the prior exam. Reading Location: [facility] CC: ETCHER ELECTROLYTIC-C Kuldeep Austin; Dr. Louie Burns DO Home Appliance Technician: Signed Normal [facility] Comprehensive Metabolic Prof ilon 12-16-2024 Albumin [Mass/Vol] 4.1 g/dL Normal 3.4-4.8 [facility] Comment on above: Performed By: #### L 500.4050 ####[facility] [address] [place], [place], [address] Albumin/Globulin [Mass ratio] 0.9 {ratio} Normal 0.9-2.4 [facility] Comment on above: Performed By: #### L 500.4050 ####[facility] [address] [place], [address] ALK PHOS 148 U/L High 40-129 [facility] Comment on above: Performed By: #### L 500.4050 ####[facility] [address] [place], [address] ALT [Catalytic activity/Vol] 25 U/L Normal <=46 [facility] Comment on above: Performed By: #### L 500.4050 ####[facility] [address] [place], [address] AST [Catalytic activity/Vol] 52 U/L High <=37 [facility] Comment on above: Result Comment: Hemo lysis present, Results??could be affected. ?? Performed By: #### L 500.4050 ####[facility] [address] [place], [address] Bilirubin [Mass/Vol] 0.60 mg/dL Normal 0.00-1.30 [facility] Comment on above: Performed By: #### L 500.4050 ####[facility] [address] [place], [address] BUN/CRE 21.9 RATIO High 10-20 [facility] Comment on above: Performed By: #### L 500.4050 ####[facility] [address] [place], [address] Calcium [Mass/Vol] 9.7 mg/dL Normal 7.6-11.0 [facility] Comment on above: Performed By: #### L 500.4050 ####[facility] [address] [place], [address] Chloride [Moles/Vol] 99 mmol/L Normal 98-108 [facility] Comment on above: Performed By: #### L 500.4050 ####[facility] [address] [place], [address] CO2 [Moles/Vol] 27.2 mmol/L Normal 21.0-32.0 [facility] Comment on above: Performed By: #### L 500.4050 ####[facility] [address] [place], [address] Creatinine [Mass/Vol] 1.26 mg/dL High 0.70-1.20 [facility] Comment on above: Performed By: #### L 500.4050 ####[facility] [address] [place], [address] GAP 11 Normal 5-15 [facility] Comment on above: Performed By: #### L 500.4050 ####[facility] [address] [place], [address] GFR/1.73 sq M.predicted among non-blacks MDRD (S/P/Bld) [Vol rate/Area] 58 mL/min/{1.73_m2} Low >60 [facility] Comment on above: Result Comment: mL/m in/1.73m2 CKD-EPI Creatinine Equation (2020) Performed By: #### L 500.4050 ####[facility] [address] [place], [address] Globulin (S) [Mass/Vol] 4.5 g/dL High 2.2-4.2 [facility] Comment on above: Performed By: #### L 500.4050 ####[facility] [address] [place], [address] Glucose [Mass/Vol] 84 mg/dL Normal 70-99 [facility] Comment on above: Performed By: #### L 500.4050 ####[facility] [address] [place], [address] Potassium [Moles/Vol] 4.3 mmol/L Normal 3.3-5.1 [facility] Comment on above: Result Comment: Hemo lysis present, Results??could be affected. ?? Performed By: #### L 500.4050 ####[facility] [address] [place], [address] Sodium [Moles/Vol] 137 mmol/L Normal 133-145 [facility] Comment on above: Performed By: #### L 500.4050 ####[facility] [address] [place], [place], [address] T PROT 8.5 g/dL High 5.9-8.4 [facility] Comment on above: Performed By: #### L 500.4050 ####[facility] [address] [place], [place], [address] Urea nitrogen [Mass/Vol] 28 mg/dL High 4-19 [facility] Comment on above: Performed By: #### L 500.4050 ####[facility] [address] [place], [place], [address] Echo Completeon 12-16-2024 Echo Complete [facility] [address] [place] [address] Echo Complete 12/16/24 0134 MR#: [id number] Acct: [id number] Name: MARKUS NAVA Rep #: [id number] : 1945 79 From: Michael Maldonado MD Attending Dr: JD June Status: REG CLI Ordering Dr: Kuldeep Austin ETCHER ELECTROLYTIC ETCHER ELECTROLYTIC-C Date: 12/16/24 Location: [facility] Sex: M C Admitted: Reason For Study [...] DO Date Dictated: 12/16/24133 Date Transcribed: 12/16/241699 Home Appliance Technician: Signed Normal [facility] Prothrombin Time w/INRon INR Coag (PPP) [Relative time] 2.8 {INR} Normal [facility] Comment on above: Order Comment: ADD O N TO LABS DONE ON omments: STANDING ORDER: FAX to 3435 Performed By: #### L 300.3900 ####[facility] [address] [place], [address] PT Coag (PPP) [Time] 29.9 s High 11.7-14.9 [facility] Comment on above: Order Comment: ADD O N TO LABS DONE ON omments: STANDING ORDER: FAX to [id number] Performed By: #### L 300.3900 ####[facility] [address] [place], [address] CBC W/Diff, Automatedon 06-0 Absolute Lymph 0.75 X10 3/uL Low 0.83-4.51 [facility] Comment on above: Performed By: #### L 100.0100, L500.2500 #### [facility] [address] [place], [address] Absolute Neut 3.7 X10 3/uL Normal 2.0-7.7 [facility] Comment on above: Performed By: #### L 100.0100, L500.2500 #### [facility] [address] [place], [address] Basophils/100 WBC (Bld) 1.2 % High 0-1 [facility] Comment on above: Performed By: #### L 100.0100, L500.2500 #### [facility] [address] [place], [address] Eosinophils/100 WBC (Bld) 5.5 % High 0-5 [facility] Comment on above: Performed By: #### L 100.0100, L500.2500 #### [facility] [address] [place], [address] Erythrocyte distribution width (RBC) [Ratio] 14.1 % Normal 11.6-14.6 [facility] Comment on above: Performed By: #### L 100.0100, L500.2500 #### [facility] [address] [place], [address] Hematocrit (Bld) [Volume fraction] 37.3 % Low 40-54 [facility] Comment on above: Performed By: #### L 100.0100, L500.2500 #### [facility] [address] [place], [address] Hemoglobin (Bld) [Mass/Vol] 12.4 g/dL Low 13.0-16.5 [facility] Comment on above: Performed By: #### L 100.0100, L500.2500 #### [facility] [address] [place], [address] IG% 0.200 Normal 0.0-0.9 [facility] Comment on above: Result Comment: IG% - Immature Granulocytes (promyelocytes, myelocytes and metamyelocytes) > 1% indicates that a LEFT SHIFT is Present. Performed By: #### L 100.0100, L500.2500 #### [facility] [address] [place], [address] Lymphocytes/100 WBC (Bld) 12.8 % Low 19-41 [facility] Comment on above: Performed By: #### L 100.0100, L500.2500 #### [facility] [address] [place], [address] MCH (RBC) [Entitic mass] 32.9 pg High 27.0-32.0 [facility] Comment on above: Performed By: #### L 100.0100, L500.2500 #### [facility] [address] [place], [address] MCHC (RBC) [Mass/Vol] 33.2 g/dL Normal 32-36 [facility] Comment on above: Performed By: #### L 100.0100, L500.2500 #### [facility] [address] [place], [address] MCV (RBC) [Entitic vol] 98.9 fL High 80-94 [facility] Comment on above: Performed By: #### L 100.0100, L500.2500 #### [facility] [address] [place], [address] Monocytes/100 WBC (Bld) 17.0 % High 0-10 [facility] Comment on above: Performed By: #### L 100.0100, L500.2500 #### [facility] [address] [place], [address] Neutrophils/100 WBC (Bld) 63.3 % Normal 47-70 [facility] Comment on above: Performed By: #### L 100.0100, L500.2500 #### [facility] [address] [place], [address] Nucleated RBC (Bld) [#/Vol] 0 10*3/uL Normal 0-5 [facility] Comment on above: Performed By: #### L 100.0100, L500.2500 #### [facility] [address] [place], [address] Platelet mean volume (Bld) [Entitic vol] 10.5 fL Normal 6.2-12.0 [facility] Comment on above: Performed By: #### L 100.0100, L500.2500 #### [facility] [address] [place], [address] Platelets (Bld) [#/Vol] 197 10*3/uL Normal 150-450 [facility] Comment on above: Performed By: #### L 100.0100, L500.2500 #### [facility] [address] [place], [address] RBC (Bld) [#/Vol] 3.77 10*6/uL Low 4.6-6.2 [facility] Comment on above: Performed By: #### L 100.0100, L500.2500 #### [facility] [address] [place], [address] RDW SD 51.7 fl High 35.1-43.9 [facility] Comment on above: Performed By: #### L 100.0100, L500.2500 #### [facility] [address] [place], [address] WBC (Bld) [#/Vol] 5.8 10*3/uL Normal 4.4-11.0 [facility] Comment on above: Performed By: #### L 100.0100, L500.2500 #### [facility] [address] [place], [address] Cardiology Visit Reporton Cardiology Visit Report [facility] [address] [place] [address] OFFICE VISIT Date of Service: 11/10/24 MR#: [id number] Acct: [id number] Name: KEZIAMARKUS AYALA Rep #: [id number] : 1945 Provider: ETCHER ELECTROLYTIC-C Kuldeep H Kathy f Age/Sex: 79/M Location[place] [facility] [place] Status: Signed HPI HPI History of Present [...] As you recall, he was admitted to [facility] on 04/05/2021 for respiratory failure [...] of respiratory distress. He was evaluated at [facility] in June 2023 for MSSA endocarditis of [...] note: pt to do labs first L.L. 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 Normal [facility] Chest PA and Lateralon 11-10 Chest PA and Lateral [facility] Imaging Services [address] [place] [address] Chest PA and Lateral MR#: [id number] Acct: [id number] Name: MARKUS NAVA Rep #: [id number] : 1945 M 79 From: Tobin Rangel MD PCP: Dr. Louie Burns DO Status: REG CLI Study: Chest PA and Lateral Date of Exam: 11/10/24 Exam# [id number] Ordering Dr: Kuldeep Austin NP ETCHER ELECTROLYTIC-C PROCEDURE: CHEST PA AND LATERAL 11/10/2024 REASON [...] There is no significant change. Reading Location: [place] [address] CC: ETCHER ELECTROLYTIC-C Kuldeep Austin; Dr. Louie Burns DO Home Appliance Technician: Signed Normal [facility] Comprehensive Metabolic Prof ilon 11-10-2024 Albumin [Mass/Vol] 3.9 g/dL Normal 3.4-4.8 [facility] Comment on above: Order Comment: Do al kal with other labs on SundayNovember 10 Performed By: #### L 501.4021 #### [facility] [address] [place], [address] Albumin/Globulin [Mass ratio] 1.0 {ratio} Normal 0.9-2.4 [facility] Comment on above: Order Comment: Do al kal with other labs on SundayNovember 10 Performed By: #### L 501.4021 #### [facility] [address] [place], [address] ALK PHOS 200 U/L High 40-129 [facility] Comment on above: Order Comment: Do al kal with other labs on SundayNovember 10 Performed By: #### L 501.4021 #### [facility] [address] [place], [address] ALT [Catalytic activity/Vol] 26 U/L Normal <=46 [facility] Comment on above: Order Comment: Do al kal with other labs on SundayNovember 10 Performed By: #### L 501.4021 #### [facility] [address] [place], [address] AST [Catalytic activity/Vol] 49 U/L High <=37 [facility] Comment on above: Order Comment: Do al kal with other labs on SundayNovember 10 Performed By: #### L 501.4021 #### [facility] [address] [place], [address] Bilirubin [Mass/Vol] 0.67 mg/dL Normal 0.00-1.30 [facility] Comment on above: Order Comment: Do al kal with other labs on SundayNovember 10 Performed By: #### L 501.4021 #### [facility] [address] [place], [address] BUN/CRE 20.4 RATIO High 10-20 [facility] Comment on above: Order Comment: Do al kal with other labs on SundayNovember 10 Performed By: #### L 501.4021 #### [facility] [address] [place], [address] Calcium [Mass/Vol] 9.2 mg/dL Normal 7.6-11.0 [facility] Comment on above: Order Comment: Do al kal with other labs on SundayNovember 10 Performed By: #### L 501.4021 #### [facility] [address] [place], [address] Chloride [Moles/Vol] 102 mmol/L Normal 98-108 [facility] Comment on above: Order Comment: Do al kal with other labs on SundayNovember 10 Performed By: #### L 501.4021 #### [facility] [address] [place], [address] CO2 [Moles/Vol] 28.4 mmol/L Normal 21.0-32.0 [facility] Comment on above: Order Comment: Do al kal with other labs on SundayNovember 10 Performed By: #### L 501.4021 #### [facility] [address] [place], [address] Creatinine [Mass/Vol] 1.12 mg/dL Normal 0.70-1.20 [facility] Comment on above: Order Comment: Do al kal with other labs on SundayNovember 10 Performed By: #### L 501.4021 #### [facility] [address] [place], [address] GAP 9 Normal 5-15 [facility] Comment on above: Order Comment: Do al kal with other labs on SundayNovember 10 Performed By: #### L 501.4021 #### [facility] [address] [place], [address] GFR/1.73 sq M.predicted among non-blacks MDRD (S/P/Bld) [Vol rate/Area] 67 mL/min/{1.73_m2} Normal >60 [facility] Comment on above: Order Comment: Do al kal with other labs on SundayNovember 10 Result Comment: mL/m in/1.73m2 CKD-EPI Creatinine Equation (2020) Performed By: #### L 501.4021 #### [facility] [address] [place], [address] Globulin (S) [Mass/Vol] 4.0 g/dL Normal 2.2-4.2 [facility] Comment on above: Order Comment: Do al kal with other labs on SundayNovember 10 Performed By: #### L 501.4021 #### [facility] [address] [place], [address] Glucose [Mass/Vol] 110 mg/dL High 70-99 [facility] Comment on above: Order Comment: Do al kal with other labs on SundayNovember 10 Performed By: #### L 501.4021 #### [facility] [address] [place], [address] Potassium [Moles/Vol] 4.2 mmol/L Normal 3.3-5.1 [facility] Comment on above: Order Comment: Do al kal with other labs on SundayNovember 10 Performed By: #### L 501.4021 #### [facility] [address] [place], [address] Sodium [Moles/Vol] 139 mmol/L Normal 133-145 [facility] Comment on above: Order Comment: Do al kal with other labs on SundayNovember 10 Performed By: #### L 501.4021 #### [facility] [address] [place], [address] T PROT 7.9 g/dL Normal 5.9-8.4 [facility] Comment on above: Order Comment: Do al kal with other labs on SundayNovember 10 Performed By: #### L 501.4021 #### [facility] [address] [place], [address] Urea nitrogen [Mass/Vol] 23 mg/dL High 4-19 [facility] Comment on above: Order Comment: Do al kal with other labs on SundayNovember 10 Performed By: #### L 501.4021 #### [facility] [address] [place], [address] L503.7505on 11-10-2024 Natriuretic peptide B (Bld) [Mass/Vol] 2020 pg/mL High <=1800 [facility] Comment on above: Result Comment: Hear t Failure Unlikely: < 300 pg/mL Heart Failure Likely < 50 Years: > 450 pg/mL 50-75 Years: > 900 pg/mL >75 Years: > 1800 pg/mL Performed By: #### L 501.4021 #### [facility] [address] [place], [address] Prothrombin Time w/INRon INR Coag (PPP) [Relative time] 3.7 {INR} Normal [facility] Comment on above: Order Comment: Comme nts: Do along with other labs on SundayNovember 10 Performed By: #### L 100.0100, L500.2500 #### [facility] [address] [place], [address] PT Coag (PPP) [Time] 37.3 s High 11.7-14.9 [facility] Comment on above: Order Comment: Comme nts: Do along with other labs on SundayNovember 10 Performed By: #### L 100.0100, L500.2500 #### [facility] [address] [place], [address] Emergency Department Summary on 10-11-2024 Emergency Department Summary [facility] Medical Records Department [address] [place] [address] Emergency Department Summary 10/11/24 MR#: [id number] Acct: [id number] Name: MARKUS NAVA Rep #: [id number] : 1945 79 From: Amor Carmona MD [...] has no weakness or numbness or tingling. 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 Normal [facility] HIP, UNI W/ Pelvis 2-3 Views on 10-11-2024 HIP, UNI W/ Pelvis 2-3 Views [facility] Imaging Services [address] [place] [address] HIP, UNI W/ Pelvis 2-3 Views MR#: [id number] Acct: [id number] Name: MARKUS NAVA Rep #: [id number] : 1945 M 79 From: Darryl kilpatrick MD PCP: Dr. Louie Burns DO Status: DEP ER Study: HIP, UNI W/ Pelvis 2-3 Views Date of Exam: 03/28 Exam# [id number] Ordering Dr: Helga Lundy PROCEDURE: HIP, UNI W/ PELVIS 2-3 VIEWS 10/11/2024 REASON FOR EXAM: PAIN TECHNIQUE: Three views of the left hip COMPARISON: None FINDINGS: No acute fracture or dislocation. Diffuse osteopenia. Moderate bilateral osteoarthritis. No focal soft tissue abnormality. RAD/HIP, UNI W/ Pelvis 2-3 Views IMPRESSION: No acute findings. Moderate osteoarthritis. Reading Location: [facility] CC: Dr. Louie Burns DO; JAYNE Pelayo Home Appliance Technician: Signed Normal [facility] Shoulder min 2 Viewson 10-11 Shoulder min 2 Views [facility] Imaging Services [address] [place] [address] Shoulder min 2 Views MR#: [id number] Acct: [id number] Name: MARKUS NAVA Rep #: [id number] : 1945 M 79 From: Darryl kilpatrick MD PCP: Dr. Louie Burns DO Status: DEP ER Study: Shoulder min 2 Views Date of Exam: 10/11/24 Exam# [id number] Ordering Dr: Helga Lundy PROCEDURE: SHOULDER MIN [...] CC: Dr. Louie Burns DO; JAYNE Pelayo Home Appliance Technician: Signed Normal [facility] CBC W/Diff, Automatedon 09-02 PATH REV Reviewed Normal [facility] Comment on above: Result Comment: SEE REPORT IN PATIENT'S EMR AMENDED REPORT 09/17/24 1045 PATH REV previously reported as: October Performed By: #### L 500.4050, L100.0100, L300.4310, L300.3900, L503.6005, M200.1000 #### [facility] [address] [place], [address] Culture, Blood (WB)on 2024 CUB Blood cultures x2, from two different sites No growth in 5 days. Normal [facility] Comment on above: Performed By: #### L 500.4050, L100.0100, L300.4310, L300.3900, L503.6005, M200.1000 ####[facility] [address] [place], [address] Basic Metabolic Profile (BMP )on 08-27-2024 BUN/CRE 13.2 RATIO Normal - [facility] Comment on above: Performed By: #### L 100.0100, L500.2500 ####[facility] [address] [place], [address] Calcium [Mass/Vol] 7.3 mg/dL Low 7.6-11.0 [facility] Comment on above: Performed By: #### L 100.0100, L500.2500 ####[facility] [address] [place], [address] Chloride [Moles/Vol] 98 mmol/L Normal 98-108 [facility] Comment on above: Performed By: #### L 100.0100, L500.2500 ####[facility] [address] [place], [address] CO2 [Moles/Vol] 25.0 mmol/L Normal 21.0-32.0 [facility] Comment on above: Performed By: #### L 100.0100, L500.2500 ####[facility] [address] [place], [address] Creatinine [Mass/Vol] 0.99 mg/dL Normal 0.70-1.20 [facility] Comment on above: Performed By: #### L 100.0100, L500.2500 ####[facility] [address] [place], [address] ECRCL 72.57 ml/min Normal 50-250 [facility] Comment on above: Performed By: #### L 100.0100, L500.2500 ####[facility] [address] [place], [address] GAP 12 Normal 5-15 [facility] Comment on above: Performed By: #### L 100.0100, L500.2500 ####[facility] [address] [place], [address] GFR/1.73 sq M.predicted among non-blacks MDRD (S/P/Bld) [Vol rate/Area] 78 mL/min/{1.73_m2} Normal >60 [facility] Comment on above: Result Comment: mL/m in/1.73m2 CKD-EPI Creatinine Equation (2020) Performed By: #### L 100.0100, L500.2500 ####[facility] [address] [place], [address] Glucose [Mass/Vol] 104 mg/dL High 70-99 [facility] Comment on above: Performed By: #### L 100.0100, L500.2500 ####[facility] [address] [place], [address] Potassium [Moles/Vol] 4.0 mmol/L Normal 3.3-5.1 [facility] Comment on above: Performed By: #### L 100.0100, L500.2500 ####[facility] [address] [place], [address] Sodium [Moles/Vol] 135 mmol/L Normal 133-145 [facility] Comment on above: Performed By: #### L 100.0100, L500.2500 ####[facility] [address] [place], [address] Urea nitrogen [Mass/Vol] 13 mg/dL Normal 4-19 [facility] Comment on above: Performed By: #### L 100.0100, L500.2500 ####[facility] [address] [place], [address] CBC W/Diff, Automatedon 08-03 Absolute Lymph 0.60 X10 3/uL Low 0.83-4.51 [facility] Comment on above: Performed By: #### L 100.0100, L500.2500 ####[facility] [address] [place], [address] Absolute Neut 3.7 X10 3/uL Normal 2.0-7.7 [facility] Comment on above: Performed By: #### L 100.0100, L500.2500 ####[facility] [address] [place], [address] Basophils/100 WBC (Bld) 1.1 % High 0-1 [facility] Comment on above: Performed By: #### L 100.0100, L500.2500 ####[facility] [address] [place], [address] Eosinophils/100 WBC (Bld) 4.4 % Normal 0-5 [facility] Comment on above: Performed By: #### L 100.0100, L500.2500 ####[facility] [address] [place], [address] Erythrocyte distribution width (RBC) [Ratio] 14.2 % Normal 11.6-14.6 [facility] Comment on above: Performed By: #### L 100.0100, L500.2500 ####[facility] [address] [place], [address] Hematocrit (Bld) [Volume fraction] 39.9 % Low 40-54 [facility] Comment on above: Performed By: #### L 100.0100, L500.2500 ####[facility] [address] [place], [address] Hemoglobin (Bld) [Mass/Vol] 13.4 g/dL Normal 13.0-16.5 [facility] Comment on above: Performed By: #### L 100.0100, L500.2500 ####[facility] [address] [place], [address] IG% 0.500 Normal 0.0-0.9 [facility] Comment on above: Result Comment: IG% - Immature Granulocytes (promyelocytes, myelocytes and metamyelocytes) > 1% indicates that a LEFT SHIFT is Present. Performed By: #### L 100.0100, L500.2500 ####[facility] [address] [place], [address] Lymphocytes/100 WBC (Bld) 10.6 % Low 19-41 [facility] Comment on above: Performed By: #### L 100.0100, L500.2500 ####[facility] [address] [place], [address] MCH (RBC) [Entitic mass] 31.5 pg Normal 27.0-32.0 [facility] Comment on above: Performed By: #### L 100.0100, L500.2500 ####[facility] [address] [place], [address] MCHC (RBC) [Mass/Vol] 33.6 g/dL Normal 32-36 [facility] Comment on above: Performed By: #### L 100.0100, L500.2500 ####[facility] [address] [place], [address] MCV (RBC) [Entitic vol] 93.7 fL Normal 80-94 [facility] Comment on above: Performed By: #### L 100.0100, L500.2500 ####[facility] [address] [place], [address] Monocytes/100 WBC (Bld) 19.2 % High 0-10 [facility] Comment on above: Performed By: #### L 100.0100, L500.2500 ####[facility] [address] [place], [address] Neutrophils/100 WBC (Bld) 64.2 % Normal 47-70 [facility] Comment on above: Performed By: #### L 100.0100, L500.2500 ####[facility] [address] [place], [address] Nucleated RBC (Bld) [#/Vol] 0 10*3/uL Normal 0-5 [facility] Comment on above: Performed By: #### L 100.0100, L500.2500 ####[facility] [address] [place], [address] Platelet mean volume (Bld) [Entitic vol] 10.5 fL Normal 6.2-12.0 [facility] Comment on above: Performed By: #### L 100.0100, L500.2500 ####[facility] [address] [place], [address] Platelets (Bld) [#/Vol] 198 10*3/uL Normal 150-450 [facility] Comment on above: Performed By: #### L 100.0100, L500.2500 ####[facility] [address] [place], [address] RBC (Bld) [#/Vol] 4.26 10*6/uL Low 4.6-6.2 [facility] Comment on above: Performed By: #### L 100.0100, L500.2500 ####[facility] [address] [place], [address] RDW SD 48.6 fl High 35.1-43.9 [facility] Comment on above: Performed By: #### L 100.0100, L500.2500 ####[facility] [address] [place], [address] WBC (Bld) [#/Vol] 5.7 10*3/uL Normal 4.4-11.0 [facility] Comment on above: Performed By: #### L 100.0100, L500.2500 ####[facility] [address] [place], [address] Prothrombin Time w/INRon INR Coag (PPP) [Relative time] 2.4 {INR} Normal [facility] Comment on above: Performed By: #### L 501.4021 #### [facility] [address] [place], [address] PT Coag (PPP) [Time] 26.3 s High 11.7-14.9 [facility] Comment on above: Performed By: #### L 501.4021 #### [facility] [address] [place], [address] Basic Metabolic Profile (BMP )on 08-26-2024 BUN/CRE 14.6 RATIO Normal 10-20 [facility] Comment on above: Performed By: #### L 501.4021 #### [facility] [address] [place], [address] Calcium [Mass/Vol] 8.7 mg/dL Normal 7.6-11.0 [facility] Comment on above: Performed By: #### L 501.4021 #### [facility] [address] [place], [address] Chloride [Moles/Vol] 99 mmol/L Normal 98-108 [facility] Comment on above: Performed By: #### L 501.4021 #### [facility] [address] [place], [address] CO2 [Moles/Vol] 27.2 mmol/L Normal 21.0-32.0 [facility] Comment on above: Performed By: #### L 501.4021 #### [facility] [address] [place], [address] Creatinine [Mass/Vol] 0.94 mg/dL Normal 0.70-1.20 [facility] Comment on above: Performed By: #### L 501.4021 #### [facility] [address] [place], [address] ECRCL 76.43 ml/min Normal 50-250 [facility] Comment on above: Performed By: #### L 501.4021 #### [facility] [address] [place], [address] GAP 9 Normal 5-15 [facility] Comment on above: Performed By: #### L 501.4021 #### [facility] [address] [place], [address] GFR/1.73 sq M.predicted among non-blacks MDRD (S/P/Bld) [Vol rate/Area] 82 mL/min/{1.73_m2} Normal >60 [facility] Comment on above: Result Comment: mL/m in/1.73m2 CKD-EPI Creatinine Equation (2020) Performed By: #### L 501.4021 #### [facility] [address] [place], [address] Glucose [Mass/Vol] 108 mg/dL High 70-99 [facility] Comment on above: Performed By: #### L 501.4021 #### [facility] [address] [place], [address] Potassium [Moles/Vol] 4.1 mmol/L Normal 3.3-5.1 [facility] Comment on above: Performed By: #### L 501.4021 #### [facility] [address] [place], [address] Sodium [Moles/Vol] 135 mmol/L Normal 133-145 [facility] Comment on above: Performed By: #### L 501.4021 #### [facility] [address] [place], [address] Urea nitrogen [Mass/Vol] 14 mg/dL Normal 4-19 [facility] Comment on above: Performed By: #### L 501.4021 #### [facility] [address] [place], [address] CBC W/Diff, Automatedon -2 -2024 Absolute Lymph 0.57 X10 3/uL Low 0.83-4.51 [facility] Comment on above: Performed By: #### L 501.4021 #### [facility] [address] [place], [address] Absolute Neut 5.0 X10 3/uL Normal 2.0-7.7 [facility] Comment on above: Performed By: #### L 501.4021 #### [facility] [address] [place], [address] Basophils/100 WBC (Bld) 0.6 % Normal 0-1 [facility] Comment on above: Performed By: #### L 501.4021 #### [facility] [address] [place], [address] Eosinophils/100 WBC (Bld) 2.9 % Normal 0-5 [facility] Comment on above: Performed By: #### L 501.4021 #### [facility] [address] [place], [address] Erythrocyte distribution width (RBC) [Ratio] 14.4 % Normal 11.6-14.6 [facility] Comment on above: Performed By: #### L 501.4021 #### [facility] [address] [place], [address] Hematocrit (Bld) [Volume fraction] 37.1 % Low 40-54 [facility] Comment on above: Performed By: #### L 501.4021 #### [facility] [address] [place], [address] Hemoglobin (Bld) [Mass/Vol] 12.6 g/dL Low 13.0-16.5 [facility] Comment on above: Performed By: #### L 501.4021 #### [facility] [address] [place], [address] IG% 0.400 Normal 0.0-0.9 [facility] Comment on above: Result Comment: IG% - Immature Granulocytes (promyelocytes, myelocytes and metamyelocytes) > 1% indicates that a LEFT SHIFT is Present. Performed By: #### L 501.4021 #### [facility] [address] [place], [address] Lymphocytes/100 WBC (Bld) 8.1 % Low 19-41 [facility] Comment on above: Performed By: #### L 501.4021 #### [facility] [address] [place], [address] MCH (RBC) [Entitic mass] 31.8 pg Normal 27.0-32.0 [facility] Comment on above: Performed By: #### L 501.4021 #### [facility] [address] [place], [address] MCHC (RBC) [Mass/Vol] 34.0 g/dL Normal 32-36 [facility] Comment on above: Performed By: #### L 501.4021 #### [facility] [address] [place], [address] MCV (RBC) [Entitic vol] 93.7 fL Normal 80-94 [facility] Comment on above: Performed By: #### L 501.4021 #### [facility] [address] [place], [address] Monocytes/100 WBC (Bld) 17.0 % High 0-10 [facility] Comment on above: Performed By: #### L 501.4021 #### [facility] [address] [place], [address] Neutrophils/100 WBC (Bld) 71.0 % High 47-70 [facility] Comment on above: Performed By: #### L 501.4021 #### [facility] [address] [place], [address] Nucleated RBC (Bld) [#/Vol] 0 10*3/uL Normal 0-5 [facility] Comment on above: Performed By: #### L 501.4021 #### [facility] [address] [place], [address] Platelet mean volume (Bld) [Entitic vol] 10.4 fL Normal 6.2-12.0 [facility] Comment on above: Performed By: #### L 501.4021 #### [facility] [address] [place], [address] Platelets (Bld) [#/Vol] 181 10*3/uL Normal 150-450 [facility] Comment on above: Performed By: #### L 501.4021 #### [facility] [address] [place], [address] RBC (Bld) [#/Vol] 3.96 10*6/uL Low 4.6-6.2 [facility] Comment on above: Performed By: #### L 501.4021 #### [facility] [address] [place], [address] RDW SD 49.5 fl High 35.1-43.9 [facility] Comment on above: Performed By: #### L 501.4021 #### [facility] [address] [place], [address] WBC (Bld) [#/Vol] 7.0 10*3/uL Normal 4.4-11.0 [facility] Comment on above: Performed By: #### L 501.4021 #### [facility] [address] [place], [address] Prothrombin Time w/INRon INR Coag (PPP) [Relative time] 2.3 {INR} Normal [facility] Comment on above: Performed By: #### L 100.0100, L500.2500 #### [facility] [address] [place], [address] PT Coag (PPP) [Time] 25.9 s High 11.7-14.9 [facility] Comment on above: Performed By: #### L 100.0100, L500.2500 #### [facility] [address] [place], [address] Respiratory Cultureon 2024 RESPC Serratia marcescens Amount Growth 1+ Serratia marcescens: REACTION Cefepime Islt PANCHO <=0.12 S cefTRIAXone Islt PANCHO <=0.25 S Ciprofloxacin Islt PANCHO 0.5 I Gentamicin Islt PANCHO <=1 S levoFLOXacin Islt PANCHO 1 I Meropenem Islt PANCHO <=0.25 S TMP SMX Islt PANCHO <=20 S Normal [facility] Comment on above: Performed By: #### L 100.0100, L500.2500 #### [facility] [address] [place], [address] Basic Metabolic Profile (BMP )on 08-25-2024 BUN/CRE 15.8 RATIO Normal 10-20 [facility] Comment on above: Performed By: #### L 100.0100, L500.2500 #### [facility] [address] [place], [address] Calcium [Mass/Vol] 8.6 mg/dL Normal 7.6-11.0 [facility] Comment on above: Performed By: #### L 100.0100, L500.2500 #### [facility] [address] [place], [address] Chloride [Moles/Vol] 102 mmol/L Normal 98-108 [facility] Comment on above: Performed By: #### L 100.0100, L500.2500 #### [facility] [address] [place], [address] CO2 [Moles/Vol] 23.6 mmol/L Normal 21.0-32.0 [facility] Comment on above: Performed By: #### L 100.0100, L500.2500 #### [facility] [facility] [address] [place], [address] Creatinine [Mass/Vol] 0.87 mg/dL Normal 0.70-1.20 [facility] Comment on above: Performed By: #### L 100.0100, L500.2500 #### [facility] [address] [place], [address] ECRCL 84.72 ml/min Normal 50-250 [facility] Comment on above: Performed By: #### L 100.0100, L500.2500 #### [facility] [address] [place], [address] GAP 10 Normal 5-15 [facility] Comment on above: Performed By: #### L 100.0100, L500.2500 #### [facility] [address] [place], [address] GFR/1.73 sq M.predicted among non-blacks MDRD (S/P/Bld) [Vol rate/Area] 88 mL/min/{1.73_m2} Normal >60 [facility] Comment on above: Result Comment: mL/m in/1.73m2 CKD-EPI Creatinine Equation (2020) Performed By: #### L 100.0100, L500.2500 #### [facility] [address] [place], [address] Glucose [Mass/Vol] 99 mg/dL Normal 70-99 [facility] Comment on above: Performed By: #### L 100.0100, L500.2500 #### [facility] [address] [place], [address] Potassium [Moles/Vol] 4.3 mmol/L Normal 3.3-5.1 [facility] Comment on above: Performed By: #### L 100.0100, L500.2500 #### [facility] [address] [place], [address] Sodium [Moles/Vol] 135 mmol/L Normal 133-145 [facility] Comment on above: Performed By: #### L 100.0100, L500.2500 #### [facility] [address] [place] [place], [address] Urea nitrogen [Mass/Vol] 14 mg/dL Normal 4-19 [facility] Comment on above: Performed By: #### L 100.0100, L500.2500 #### [facility] [address] [place], [address] CBC W/Diff, Automatedon 03-2 -2024 Absolute Lymph 0.59 X10 3/uL Low 0.83-4.51 [facility] Comment on above: Performed By: #### L 100.0100, L500.2500 #### [facility] [address] [place], [address] Absolute Neut 5.8 X10 3/uL Normal 2.0-7.7 [facility] Comment on above: Performed By: #### L 100.0100, L500.2500 #### [facility] [address] [place], [address] Basophils/100 WBC (Bld) 0.6 % Normal 0-1 [facility] Comment on above: Performed By: #### L 100.0100, L500.2500 #### [facility] [address] [place], [address] Eosinophils/100 WBC (Bld) 2.5 % Normal 0-5 [facility] Comment on above: Performed By: #### L 100.0100, L500.2500 #### [facility] [address] [place], [address] Erythrocyte distribution width (RBC) [Ratio] 14.4 % Normal 11.6-14.6 [facility] Comment on above: Performed By: #### L 100.0100, L500.2500 #### [facility] [address] [place], [address] Hematocrit (Bld) [Volume fraction] 36.9 % Low 40-54 [facility] Comment on above: Performed By: #### L 100.0100, L500.2500 #### [facility] [address] [place], [address] Hemoglobin (Bld) [Mass/Vol] 12.3 g/dL Low 13.0-16.5 [facility] Comment on above: Performed By: #### L 100.0100, L500.2500 #### [facility] [address] [place], [address] IG% 0.400 Normal 0.0-0.9 [facility] Comment on above: Result Comment: IG% - Immature Granulocytes (promyelocytes, myelocytes and metamyelocytes) > 1% indicates that a LEFT SHIFT is Present. Performed By: #### L 100.0100, L500.2500 #### [facility] [address] [place], [address] Lymphocytes/100 WBC (Bld) 7.6 % Low 19-41 [facility] Comment on above: Performed By: #### L 100.0100, L500.2500 #### [facility] [address] [place], [address] MCH (RBC) [Entitic mass] 31.3 pg Normal 27.0-32.0 [facility] Comment on above: Performed By: #### L 100.0100, L500.2500 #### [facility] [address] [place], [address] MCHC (RBC) [Mass/Vol] 33.3 g/dL Normal 32-36 [facility] Comment on above: Performed By: #### L 100.0100, L500.2500 #### [facility] [address] [place], [address] MCV (RBC) [Entitic vol] 93.9 fL Normal 80-94 [facility] Comment on above: Performed By: #### L 100.0100, L500.2500 #### [facility] [address] [place], [address] Monocytes/100 WBC (Bld) 13.8 % High 0-10 [facility] Comment on above: Performed By: #### L 100.0100, L500.2500 #### [facility] [address] [place], [address] Neutrophils/100 WBC (Bld) 75.1 % High 47-70 [facility] Comment on above: Performed By: #### L 100.0100, L500.2500 #### [facility] [address] [place], [address] Nucleated RBC (Bld) [#/Vol] 0 10*3/uL Normal 0-5 [facility] Comment on above: Performed By: #### L 100.0100, L500.2500 #### [facility] [address] [place], [address] Platelet mean volume (Bld) [Entitic vol] 10.2 fL Normal 6.2-12.0 [facility] Comment on above: Performed By: #### L 100.0100, L500.2500 #### [facility] [address] [place], [address] Platelets (Bld) [#/Vol] 174 10*3/uL Normal 150-450 [facility] Comment on above: Performed By: #### L 100.0100, L500.2500 #### [facility] [address] [place], [address] RBC (Bld) [#/Vol] 3.93 10*6/uL Low 4.6-6.2 [facility] Comment on above: Performed By: #### L 100.0100, L500.2500 #### [facility] [address] [place], [address] RDW SD 50.3 fl High 35.1-43.9 [facility] Comment on above: Performed By: #### L 100.0100, L500.2500 #### [facility] [address] [place], [address] WBC (Bld) [#/Vol] 7.7 10*3/uL Normal 4.4-11.0 [facility] Comment on above: Performed By: #### L 100.0100, L500.2500 #### [facility] [address] [place], [address] Prothrombin Time w/INRon - -2024 INR Coag (PPP) [Relative time] 2.0 {INR} Normal [facility] Comment on above: Performed By: #### L 501.4021 #### [facility] [address] [place], [address] PT Coag (PPP) [Time] 22.7 s High 11.7-14.9 [facility] Comment on above: Performed By: #### L 501.4021 #### [facility] [address] [place], [address] CBC W/Diff, Automatedon - Absolute Lymph 0.85 X10 3/uL Normal 0.83-4.51 [facility] Comment on above: Performed By: #### L 100.0100, L500.2500 #### [facility] [address] [place], [address] Absolute Neut 4.2 X10 3/uL Normal 2.0-7.7 [facility] Comment on above: Performed By: #### L 100.0100, L500.2500 #### [facility] [address] [place], [address] Basophils/100 WBC (Bld) 1.2 % High 0-1 [facility] Comment on above: Performed By: #### L 100.0100, L500.2500 #### [facility] [address] [place], [address] Eosinophils/100 WBC (Bld) 2.1 % Normal 0-5 [facility] Comment on above: Performed By: #### L 100.0100, L500.2500 #### [facility] [address] [place], [address] Erythrocyte distribution width (RBC) [Ratio] 14.5 % Normal 11.6-14.6 [facility] Comment on above: Performed By: #### L 100.0100, L500.2500 #### [facility] [address] [place], [address] Hematocrit (Bld) [Volume fraction] 37.4 % Low 40-54 [facility] Comment on above: Performed By: #### L 100.0100, L500.2500 #### [facility] [address] [place], [address] Hemoglobin (Bld) [Mass/Vol] 12.5 g/dL Low 13.0-16.5 [facility] Comment on above: Performed By: #### L 100.0100, L500.2500 #### [facility] [address] [place], [address] IG% 0.400 Normal 0.0-0.9 [facility] Comment on above: Result Comment: IG% - Immature Granulocytes (promyelocytes, myelocytes and metamyelocytes) > 1% indicates that a LEFT SHIFT is Present. Performed By: #### L 100.0100, L500.2500 #### [facility] [address] [place], [address] Lymphocytes/100 WBC (Bld) 12.7 % Low 19-41 [facility] Comment on above: Performed By: #### L 100.0100, L500.2500 #### [facility] [address] [place], [address] MCH (RBC) [Entitic mass] 31.8 pg Normal 27.0-32.0 [facility] Comment on above: Performed By: #### L 100.0100, L500.2500 #### [facility] [address] [place], [address] MCHC (RBC) [Mass/Vol] 33.4 g/dL Normal 32-36 [facility] Comment on above: Performed By: #### L 100.0100, L500.2500 #### [facility] [address] [place], [address] MCV (RBC) [Entitic vol] 95.2 fL High 80-94 [facility] Comment on above: Performed By: #### L 100.0100, L500.2500 #### [facility] [address] [place], [address] Monocytes/100 WBC (Bld) 20.8 % High 0-10 [facility] Comment on above: Performed By: #### L 100.0100, L500.2500 #### [facility] [address] [place], [address] Neutrophils/100 WBC (Bld) 62.8 % Normal 47-70 [facility] Comment on above: Performed By: #### L 100.0100, L500.2500 #### [facility] [address] [place], [address] Nucleated RBC (Bld) [#/Vol] 0 10*3/uL Normal 0-5 [facility] Comment on above: Performed By: #### L 100.0100, L500.2500 #### [facility] [address] [place], [address] Platelet mean volume (Bld) [Entitic vol] 10.7 fL Normal 6.2-12.0 [facility] Comment on above: Performed By: #### L 100.0100, L500.2500 #### [facility] [address] [place], [address] Platelets (Bld) [#/Vol] 165 10*3/uL Normal 150-450 [facility] Comment on above: Performed By: #### L 100.0100, L500.2500 #### [facility] [address] [place], [address] RBC (Bld) [#/Vol] 3.93 10*6/uL Low 4.6-6.2 [facility] Comment on above: Performed By: #### L 100.0100, L500.2500 #### [facility] [address] [place], [address] RDW SD 50.9 fl High 35.1-43.9 [facility] Comment on above: Performed By: #### L 100.0100, L500.2500 #### [facility] [address] [place], [address] WBC (Bld) [#/Vol] 6.7 10*3/uL Normal 4.4-11.0 [facility] Comment on above: Performed By: #### L 100.0100, L500.2500 #### [facility] [address] [place], [address] Comprehensive Metabolic Prof [facility] 08-24-2024 Albumin [Mass/Vol] 3.4 g/dL Normal 3.4-4.8 [facility] Comment on above: Performed By: #### L 100.0100, L500.2500 #### [facility] [address] [place], [address] Albumin/Globulin [Mass ratio] 0.9 {ratio} Normal 0.9-2.4 [facility] Comment on above: Performed By: #### L 100.0100, L500.2500 #### [facility] [address] [place], [address] ALK PHOS 171 U/L High 40-129 [facility] Comment on above: Performed By: #### L 100.0100, L500.2500 #### [facility] [address] [place], [address] ALT [Catalytic activity/Vol] 25 U/L Normal <=46 [facility] Comment on above: Performed By: #### L 100.0100, L500.2500 #### [facility] [address] [place], [address] AST [Catalytic activity/Vol] 57 U/L High <=37 [facility] Comment on above: Performed By: #### L 100.0100, L500.2500 #### [facility] [address] [place], [address] Bilirubin [Mass/Vol] 1.11 mg/dL Normal 0.00-1.30 [facility] Comment on above: Performed By: #### L 100.0100, L500.2500 #### [facility] [address] [place], [address] BUN/CRE 13.9 RATIO Normal 10-20 [facility] Comment on above: Performed By: #### L 100.0100, L500.2500 #### [facility] [address] [place], [address] Calcium [Mass/Vol] 8.7 mg/dL Normal 7.6-11.0 [facility] Comment on above: Performed By: #### L 100.0100, L500.2500 #### [facility] [address] [place], [address] Chloride [Moles/Vol] 102 mmol/L Normal 98-108 [facility] Comment on above: Performed By: #### L 100.0100, L500.2500 #### [facility] [address] [place], [address] CO2 [Moles/Vol] 22.2 mmol/L Normal 21.0-32.0 [facility] Comment on above: Performed By: #### L 100.0100, L500.2500 #### [facility] [address] [place], [address] Creatinine [Mass/Vol] 1.03 mg/dL Normal 0.70-1.20 [facility] Comment on above: Performed By: #### L 100.0100, L500.2500 #### [facility] [address] [place], [address] ECRCL 71.82 ml/min Normal 50-250 [facility] Comment on above: Performed By: #### L 100.0100, L500.2500 #### [facility] [address] [place], [address] GAP 11 Normal 5-15 [facility] Comment on above: Performed By: #### L 100.0100, L500.2500 #### [facility] [address] [place], [address] GFR/1.73 sq M.predicted among non-blacks MDRD (S/P/Bld) [Vol rate/Area] 74 mL/min/{1.73_m2} Normal >60 [facility] Comment on above: Result Comment: mL/m in/1.73m2 CKD-EPI Creatinine Equation (2020) Performed By: #### L 100.0100, L500.2500 #### [facility] [address] [place], [address] Globulin (S) [Mass/Vol] 3.8 g/dL Normal 2.2-4.2 [facility] Comment on above: Performed By: #### L 100.0100, L500.2500 #### [facility] [address] [place], [address] Glucose [Mass/Vol] 93 mg/dL Normal 70-99 [facility] Comment on above: Performed By: #### L 100.0100, L500.2500 #### [facility] [address] [place], [address] Potassium [Moles/Vol] 4.3 mmol/L Normal 3.3-5.1 [facility] Comment on above: Result Comment: Hemo lysis present, Results??could be affected. ?? Performed By: #### L 100.0100, L500.2500 #### [facility] [address] [place], [address] Sodium [Moles/Vol] 135 mmol/L Normal 133-145 [facility] Comment on above: Performed By: #### L 100.0100, L500.2500 #### [facility] [address] [place], [address] T PROT 7.2 g/dL Normal 5.9-8.4 [facility] Comment on above: Performed By: #### L 100.0100, L500.2500 #### [facility] [address] [place], [address] Urea nitrogen [Mass/Vol] 14 mg/dL Normal 4-19 [facility] Comment on above: Performed By: #### L 100.0100, L500.2500 #### [facility] [address] [place], [address] Prothrombin Time w/INRon INR Coag (PPP) [Relative time] 1.9 {INR} Normal [facility] Comment on above: Performed By: #### L 100.0100, L500.2500 #### [facility] [address] [place], [address] PT Coag (PPP) [Time] 22.5 s High 11.7-14.9 [facility] Comment on above: Performed By: #### L 100.0100, L500.2500 #### [facility] [address], [address] Urine Cultureon 08-24-2024 [facility] Culture exhibits no growth. Normal [facility] Comment on above: Performed By: #### L 100.0100, L500.2500 #### [facility] [address] [place], [address] 12 Lead EKGon 08-23-2024 12 Lead EKG [facility] Cardiovascular Services [address] [facility] [place] [address] 12 Lead EKG 08/23/24 0002 MR#: [id number] Acct: [id number] Name: MARKUS NAVA Rep #: [id number] : 1945 79 From: Michael Maldonado MD Attending Dr: Dr. Braden Coto DO Status: ADM IN Ordering Dr: Alon Banks DO Date: 5 Location: [facility] Sex: M C Admitted: 08/23/24 Test [...] ECG Confirmed by MICHAEL MALDONADO MD ([id number]), editor school photograph KATELYNN NAGY ([id number]) on 08/25/2024 7:32:19 AM Referred By: [place] Confirmed By: MICHAEL MALDONADO MD 08/25/24 0732 Date Michael Maldonado MD CC: Dr. Alon Banks DO; Dr. Braden Coto DO; Dr. Louie Burns DO Signed Normal [facility] CBC W/Diff, Automatedon 08-03 Absolute Lymph 0.79 X10 3/uL Low 0.83-4.51 [facility] Comment on above: Performed By: #### L 500.4050, L100.0100, L300.3900 ####[facility] [address] [place], [address] Absolute Neut 7.8 X10 3/uL High 2.0-7.7 [facility] Comment on above: Performed By: #### L 500.4050, L100.0100, L300.3900 ####[facility] [address] [place], [address] Basophils/100 WBC (Bld) 0.5 % Normal 0-1 [facility] Comment on above: Performed By: #### L 500.4050, L100.0100, L300.3900 ####[facility] [address] [place], [address] Eosinophils/100 WBC (Bld) 0.4 % Normal 0-5 [facility] Comment on above: Performed By: #### L 500.4050, L100.0100, L300.3900 ####[facility] [address] [place], [address] Erythrocyte distribution width (RBC) [Ratio] 14.5 % Normal 11.6-14.6 [facility] Comment on above: Performed By: #### L 500.4050, L100.0100, L300.3900 ####[facility] [address] [place], [address] Hematocrit (Bld) [Volume fraction] 36.6 % Low 40-54 [facility] Comment on above: Performed By: #### L 500.4050, L100.0100, L300.3900 ####[facility] [address] [place], [address] Hemoglobin (Bld) [Mass/Vol] 12.3 g/dL Low 13.0-16.5 [facility] Comment on above: Performed By: #### L 500.4050, L100.0100, L300.3900 ####[facility] [address] [place], [address] IG% 0.300 Normal 0.0-0.9 [facility] Comment on above: Result Comment: IG% - Immature Granulocytes (promyelocytes, myelocytes and metamyelocytes) > 1% indicates that a LEFT SHIFT is Present. Performed By: #### L 500.4050, L100.0100, L300.3900 ####[facility] [address] [place], [address] Lymphocytes/100 WBC (Bld) 8.0 % Low 19-41 [facility] Comment on above: Performed By: #### L 500.4050, L100.0100, L300.3900 ####[facility] [address] [place], [address] MCH (RBC) [Entitic mass] 31.7 pg Normal 27.0-32.0 [facility] Comment on above: Performed By: #### L 500.4050, L100.0100, L300.3900 ####[facility] [address] [place], [address] MCHC (RBC) [Mass/Vol] 33.6 g/dL Normal 32-36 [facility] Comment on above: Performed By: #### L 500.4050, L100.0100, L300.3900 ####[facility] [address] [place], [address] MCV (RBC) [Entitic vol] 94.3 fL High 80-94 [facility] Comment on above: Performed By: #### L 500.4050, L100.0100, L300.3900 ####[facility] [address] [place], [address] Monocytes/100 WBC (Bld) 12.5 % High 0-10 [facility] Comment on above: Performed By: #### L 500.4050, L100.0100, L300.3900 ####[facility] [address] [place], [address] Neutrophils/100 WBC (Bld) 78.3 % High 47-70 [facility] Comment on above: Performed By: #### L 500.4050, L100.0100, L300.3900 ####[facility] [address] [place], [address] Nucleated RBC (Bld) [#/Vol] 0 10*3/uL Normal 0-5 [facility] Comment on above: Performed By: #### L 500.4050, L100.0100, L300.3900 ####[facility] [address] [place], [address] Platelet mean volume (Bld) [Entitic vol] 10.1 fL Normal 6.2-12.0 [facility] Comment on above: Performed By: #### L 500.4050, L100.0100, L300.3900 ####[facility] [address] [place], [address] Platelets (Bld) [#/Vol] 178 10*3/uL Normal 150-450 [facility] Comment on above: Performed By: #### L 500.4050, L100.0100, L300.3900 ####[facility] [address] [place], [address] RBC (Bld) [#/Vol] 3.88 10*6/uL Low 4.6-6.2 [facility] Comment on above: Performed By: #### L 500.4050, L100.0100, L300.3900 ####[facility] [address] [place], [address] RDW SD 50.4 fl High 35.1-43.9 [facility] Comment on above: Performed By: #### L 500.4050, L100.0100, L300.3900 ####[facility] [address] [place], [address] WBC (Bld) [#/Vol] 9.9 10*3/uL Normal 4.4-11.0 [facility] Comment on above: Performed By: #### L 500.4050, L100.0100, L300.3900 ####[facility] [address] [place], [address] Chest 1 View (Portable)on Chest 1 View (Portable) [facility] Imaging Services [address] [place] [address] Chest 1 View (Portable) MR#: [id number] Acct: [id number] Name: MARKUS NAVA Rep #: [id number] : 1945 M 79 From: Cedrick Melendez MD PCP: Dr. Louie Burns, Status: PRE ER Study: Chest 1 View (Portable) Date of Exam: 08/23/24 Exam# [id number] Ordering Dr: Alon Banks DO PROCEDURE: CHEST [...] again appears enlarged for technique. Reading Location: [id number] CC: Dr. Alon Banks, DO; Dr. Louie Burns, DO Home Appliance Technician: Signed Normal [facility] Comprehensive Metabolic Prof ilon 08-23-2024 Albumin [Mass/Vol] 3.3 g/dL Low 3.4-4.8 [facility] Comment on above: Performed By: #### L 500.4050, L100.0100, L300.3900 ####[facility] [address] [place], [address] Albumin/Globulin [Mass ratio] 0.9 {ratio} Normal 0.9-2.4 [facility] Comment on above: Performed By: #### L 500.4050, L100.0100, L300.3900 ####[facility] [address] [place], [address] ALK PHOS 168 U/L High 40-129 [facility] Comment on above: Performed By: #### L 500.4050, L100.0100, L300.3900 ####[facility] [address] [place], [address] ALT [Catalytic activity/Vol] 25 U/L Normal <=46 [facility] Comment on above: Performed By: #### L 500.4050, L100.0100, L300.3900 ####[facility] [address] [place], [address] AST [Catalytic activity/Vol] 53 U/L High <=37 [facility] Comment on above: Performed By: #### L 500.4050, L100.0100, L300.3900 ####[facility] [address] [place], [address] Bilirubin [Mass/Vol] 1.18 mg/dL Normal 0.00-1.30 [facility] Comment on above: Performed By: #### L 500.4050, L100.0100, L300.3900 ####[facility] [address] [place], [address] BUN/CRE 15.2 RATIO Normal 10-20 [facility] Comment on above: Performed By: #### L 500.4050, L100.0100, L300.3900 ####[facility] [address] [place], [address] Calcium [Mass/Vol] 8.5 mg/dL Normal 7.6-11.0 [facility] Comment on above: Performed By: #### L 500.4050, L100.0100, L300.3900 ####[facility] [address] [place], [address] Chloride [Moles/Vol] 103 mmol/L Normal 98-108 [facility] Comment on above: Performed By: #### L 500.4050, L100.0100, L300.3900 ####[facility] [address] [place], [address] CO2 [Moles/Vol] 20.3 mmol/L Low 21.0-32.0 [facility] Comment on above: Performed By: #### L 500.4050, L100.0100, L300.3900 ####[facility] [address] [place], [address] Creatinine [Mass/Vol] 1.28 mg/dL High 0.70-1.20 [facility] Comment on above: Performed By: #### L 500.4050, L100.0100, L300.3900 ####[facility] [address] [place], [address] ECRCL 57.43 ml/min Normal 50-250 [facility] Comment on above: Performed By: #### L 500.4050, L100.0100, L300.3900 ####[facility] [address] [place], [address] GAP 12 Normal 5-15 [facility] Comment on above: Performed By: #### L 500.4050, L100.0100, L300.3900 ####[facility] [address] [place], [address] GFR/1.73 sq M.predicted among non-blacks MDRD (S/P/Bld) [Vol rate/Area] 57 mL/min/{1.73_m2} Low >60 [facility] Comment on above: Result Comment: mL/m in/1.73m2 CKD-EPI Creatinine Equation (2020) Performed By: #### L 500.4050, L100.0100, L300.3900 ####[facility] [address] [place], [address] Globulin (S) [Mass/Vol] 3.7 g/dL Normal 2.2-4.2 [facility] Comment on above: Performed By: #### L 500.4050, L100.0100, L300.3900 ####[facility] [address] [place], [address] Glucose [Mass/Vol] 134 mg/dL High 70-99 [facility] Comment on above: Performed By: #### L 500.4050, L100.0100, L300.3900 ####[facility] [address] [place], [address] Potassium [Moles/Vol] 4.4 mmol/L Normal 3.3-5.1 [facility] Comment on above: Performed By: #### L 500.4050, L100.0100, L300.3900 ####[facility] [address] [place], [address] Sodium [Moles/Vol] 135 mmol/L Normal 133-145 [facility] Comment on above: Performed By: #### L 500.4050, L100.0100, L300.3900 ####[facility] [address] [place], [address] T PROT 7.0 g/dL Normal 5.9-8.4 [facility] Comment on above: Performed By: #### L 500.4050, L100.0100, L300.3900 ####[facility] [address] [place], [address] Urea nitrogen [Mass/Vol] 19 mg/dL Normal 4-19 [facility] Comment on above: Performed By: #### L 500.4050, L100.0100, L300.3900 ####[facility] [address] [place], [address] Albumin [Mass/Vol] 4.0 g/dL Normal 3.4-4.8 [facility] Comment on above: Performed By: #### L 500.4050, L100.0100, L300.4310, L300.3900, L503.6005, M200.1000 #### [facility] [address] [place], [address] Albumin/Globulin [Mass ratio] 0.9 {ratio} Normal 0.9-2.4 [facility] Comment on above: Performed By: #### L 500.4050, L100.0100, L300.4310, L300.3900, L503.6005, M200.1000 #### [facility] [address] [place], [address] ALK PHOS 214 U/L High 40-129 [facility] Comment on above: Performed By: #### L 500.4050, L100.0100, L300.4310, L300.3900, L503.6005, M200.1000 #### [facility] [address] [place], [address] ALT [Catalytic activity/Vol] 32 U/L Normal <=46 [facility] Comment on above: Performed By: #### L 500.4050, L100.0100, L300.4310, L300.3900, L503.6005, M200.1000 #### [facility] [address] [place], [address] AST [Catalytic activity/Vol] 60 U/L High <=37 [facility] Comment on above: Performed By: #### L 500.4050, L100.0100, L300.4310, L300.3900, L503.6005, M200.1000 #### [facility] [address] [place], [address] Bilirubin [Mass/Vol] 1.47 mg/dL High 0.00-1.30 [facility] Comment on above: Performed By: #### L 500.4050, L100.0100, L300.4310, L300.3900, L503.6005, M200.1000 #### [facility] [address] [place], [address] BUN/CRE 15.3 RATIO Normal 10-20 [facility] Comment on above: Performed By: #### L 500.4050, L100.0100, L300.4310, L300.3900, L503.6005, M200.1000 #### [facility] [address] [place], [address] Calcium [Mass/Vol] 9.5 mg/dL Normal 7.6-11.0 [facility] Comment on above: Performed By: #### L 500.4050, L100.0100, L300.4310, L300.3900, L503.6005, M200.1000 #### [facility] [address] [place], [address] Chloride [Moles/Vol] 98 mmol/L Normal 98-108 [facility] Comment on above: Performed By: #### L 500.4050, L100.0100, L300.4310, L300.3900, L503.6005, M200.1000 #### [facility] [address] [place], [address] CO2 [Moles/Vol] 25.2 mmol/L Normal 21.0-32.0 [facility] Comment on above: Performed By: #### L 500.4050, L100.0100, L300.4310, L300.3900, L503.6005, M200.1000 #### [facility] [address] [place], [address] Creatinine [Mass/Vol] 1.27 mg/dL High 0.70-1.20 [facility] Comment on above: Performed By: #### L 500.4050, L100.0100, L300.4310, L300.3900, L503.6005, M200.1000 #### [facility] [address] [place], [address] ECRCL 58.28 ml/min Normal 50-250 [facility] Comment on above: Performed By: #### L 500.4050, L100.0100, L300.4310, L300.3900, L503.6005, M200.1000 #### [facility] [address] [place], [address] GAP 10 Normal 5-15 [facility] Comment on above: Performed By: #### L 500.4050, L100.0100, L300.4310, L300.3900, L503.6005, M200.1000 #### [facility] [address] [place], [address] GFR/1.73 sq M.predicted among non-blacks MDRD (S/P/Bld) [Vol rate/Area] 57 mL/min/{1.73_m2} Low >60 [facility] Comment on above: Result Comment: mL/m in/1.73m2 CKD-EPI Creatinine Equation (2020) Performed By: #### L 500.4050, L100.0100, L300.4310, L300.3900, L503.6005, M200.1000 #### [facility] [address] [place], [address] Globulin (S) [Mass/Vol] 4.5 g/dL High 2.2-4.2 [facility] Comment on above: Performed By: #### L 500.4050, L100.0100, L300.4310, L300.3900, L503.6005, M200.1000 #### [facility] [address] [place], [address] Glucose [Mass/Vol] 89 mg/dL Normal 70-99 [facility] Comment on above: Performed By: #### L 500.4050, L100.0100, L300.4310, L300.3900, L503.6005, M200.1000 #### [facility] [address] [place], [address] Potassium [Moles/Vol] 5.1 mmol/L Normal 3.3-5.1 [facility] Comment on above: Performed By: #### L 500.4050, L100.0100, L300.4310, L300.3900, L503.6005, M200.1000 #### [facility] [address] [place], [address] Sodium [Moles/Vol] 133 mmol/L Normal 133-145 [facility] Comment on above: Performed By: #### L 500.4050, L100.0100, L300.4310, L300.3900, L503.6005, M200.1000 #### [facility] [address] [place], [address] T PROT 8.5 g/dL High 5.9-8.4 [facility] Comment on above: Performed By: #### L 500.4050, L100.0100, L300.4310, L300.3900, L503.6005, M200.1000 #### [facility] [address] [place], [address] Urea nitrogen [Mass/Vol] 19 mg/dL Normal 4-19 [facility] Comment on above: Performed By: #### L 500.4050, L100.0100, L300.4310, L300.3900, L503.6005, M200.1000 #### [facility] [address] [place], [address] Emergency Department Summary on 08-23-2024 Emergency Department Summary [facility] Medical Records Department [address] [place] [address] Emergency Department Summary 08/23/24 MR#: [id number] Acct: [id number] Name: MARKUS NAVA Rep #: [id number] : 1945 79 From: Alon Banks DO PCP: Dr. 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 Normal [facility] Gram Stainon 08-23-2024 GS Acceptable Specimen? Yes (<25 Epithelial cells per/lpf) Gram Stain 2+ White Blood Cells 2+ Gram positive cocci Rare Epithelial cells Normal [facility] Comment on above: Performed By: #### L 100.0100, L500.2500 #### [facility] [address] [place], [address] H AND P Exam - Hospitaliston 08-23-2024 H&P Exam - Hospitalist [facility] Medical Records Department [address] [place] [address] H P Exam - Hospitalist 08/23/24 0229 MR#: [id number] Acct: [id number] Name: MARKUS NAVA Rep #: [id number] : 1945 79 From: Krys Bull MD PCP: Dr. Louie Burns, DO Status:ADM IN Location: [facility] [id number] HPI - General General Date of Admission: [...] Former tobacco use who presents to the [facility] ED on 08/23/24 with history of progressively [...] 1, Ro[facility] 1 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 Normal [facility] L499.0042on 08-23-2024 Trop T High Sen 33 ng/L High <=22 [facility] Comment on above: Performed By: #### L 499.0042 ####[facility] [address] [facility] [place], [address] L499.0043on 08-23-2024 Trop T High Sen 40 ng/L High <=22 [facility] Comment on above: Performed By: #### L 501.4021 #### [facility] [address] [place], [address] L501.4021on 08-23-2024 Trop T High Sen 35 ng/L High <=22 [facility] Comment on above: Performed By: #### L 501.4021 #### [facility] [address] [place], [address] L503.7505on 08-23-2024 Natriuretic peptide B (Bld) [Mass/Vol] 3418 pg/mL High <=1800 [facility] Comment on above: Result Comment: Hear t Failure Unlikely: < 300 pg/mL Heart Failure Likely < 50 Years: > 450 pg/mL 50-75 Years: > 900 pg/mL >75 Years: > 1800 pg/mL Performed By: #### L 501.4021 #### [facility] [address] [place], [address] Lactic Acidon 08-23-2024 Lactate [Moles/Vol] 1.3 mmol/L Normal 0.0-2.0 [facility] Comment on above: Order Comment: Y Performed By: #### L 500.4050, L100.0100, L300.4310, L300.3900, L503.6005, M200.1000 #### [facility] [address] [place], [address] Legionella Antigen Urineon 0 08-23-2024 LEGU Legionella Ag, Urine Negative (See interpretation below) Normal [facility] Comment on above: Performed By: #### L 100.0100, L500.2500 #### [facility] [address] [place], [address] M100.678on 08-23-2024 M100.678 SARS-CoV-2 (COVID 19 ) Negative INFLUENZA A Negative INFLUENZA B Negative RSV PCR Negative Normal [facility] Comment on above: Performed By: #### L 100.0100, L500.2500 #### [facility] [address] [place], [address] Magnesiumon 08-23-2024 Magnesium [Mass/Vol] 1.7 mg/dL Normal 1.5-2.2 [facility] Comment on above: Order Comment: Comme nts: may add to ED labs Performed By: #### L 501.4021 #### [facility] [address] [place], [address] Partial Thromboplast Timeon 08-23-2024 aPTT Coag (Bld) [Time] 40.7 s High 24.1-36.2 [facility] Comment on above: Performed By: #### L 500.4050, L100.0100, L300.4310, L300.3900, L503.6005, M200.1000 ####[facility] [address] [place], [address] Prothrombin Time w/INRon INR Coag (PPP) [Relative time] 2.5 {INR} Normal [facility] Comment on above: Performed By: #### L 500.4050, L100.0100, L300.3900 ####[facility] [address] [place], [address] PT Coag (PPP) [Time] 27.9 s High 11.7-14.9 [facility] Comment on above: Performed By: #### L 500.4050, L100.0100, L300.3900 ####[facility] [address] [place], [address] INR Coag (PPP) [Relative time] 2.6 {INR} Normal [facility] Comment on above: Performed By: #### L 500.4050, L100.0100, L300.4310, L300.3900, L503.6005, M200.1000 #### [facility] [address] [place], [address] PT Coag (PPP) [Time] 28.4 s High 11.7-14.9 [facility] Comment on above: Performed By: #### L 500.4050, L100.0100, L300.4310, L300.3900, L503.6005, M200.1000 #### [facility] [address] [place], [address] RESPIRATORY PANEL MOLECULARo n 08-23-2024 RP PANEL [...] Not Detected RSV B Not Detected Normal [facility] Comment on above: Performed By: #### L 100.0100, L500.2500 #### [facility] [address] [facility] [place], [address] Strep pneumoniae Antig(UR,CS F)on 08-23-2024 STPAG URINE INTERPRETATION Strep pneumoniae Antig(UR,CSF) Negative Urine Presumptive negative for pneumococcal pneumonia, suggesting no current or recent pneumococcal infection. Infection due to S pneumoniae cannot be ruled out since the antigen present in the sample may be below the detection limit of the test. Strep pneumo Test Negative URINE (See interpretation below) Normal [facility] Comment on above: Performed By: #### L 100.0100, L500.2500 #### [facility] [address] [facility] [place], [address] Urinalysis, Completeon 08-23 RBC 0 SEEN Normal 0-5 [facility] Comment on above: Order Comment: COLLE CTOR TO SPECIFY Performed By: #### L 100.0100, L500.2500 #### [facility] [address] [facility] [place], [address] WBC 0-5 SEEN Normal 0-5 [facility] Comment on above: Order Comment: COLLE CTOR TO SPECIFY Performed By: #### L 100.0100, L500.2500 #### [facility] [address] [facility] [place], [address] BACTERIA 0 SEEN Normal None Seen [facility] Comment on above: Order Comment: COLLE CTOR TO SPECIFY Performed By: #### L 100.0100, L500.2500 #### [facility] [address] [place], [address] EPI,SQUAMOUS 0 SEEN Normal 0-5 [facility] Comment on above: Order Comment: COLLE CTOR TO SPECIFY Performed By: #### L 100.0100, L500.2500 #### [facility] [address] [place], [address] Mucus Ql (Urine sed) 0 SEEN Normal [facility] Comment on above: Order Comment: COLLE CTOR TO SPECIFY Performed By: #### L 100.0100, L500.2500 #### [facility] [address] [place], [address] Respiratory Cultureon 2024 RESPC Mixed normal respiratory kelby. No Haemophilus, Streptococcus pneumoniae, beta-hemolytic Streptococcus or Staphylococcus aureus isolated. Normal [facility] Comment on above: Performed By: #### M 100.2000, M100.2400 ####[facility] [address] [place], [address] Gram Stainon 07-12-2024 GS Acceptable Specimen? Yes (<25 Epithelial cells per/lpf) Gram Stain 3+ White Blood Cells 2+ Gram positive cocci Rare Epithelial cells Normal [facility] Comment on above: Performed By: #### M 100.2000, M100.2400 ####[facility] [address] [place], [address] Chest PA and Lateralon 07-11 Chest PA and Lateral [facility] Imaging Services [address] [place] [address] Chest PA and Lateral MR#: [id number] Acct: [id number] Name: MARKUS NAVA Rep #: [id number] : 1945 M 79 From: Louie Ritter MD PCP: Dr. Louie Burns DO Status: REG CLI Study: Chest PA and Lateral Date of Exam: 07/11/24 Exam# [id number] Ordering Dr: Louie Burns DO EXAM: XR [...] congestion. 3. Bilateral pleural effusions. [facility] CC: Dr. 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 Normal [facility] Prothrombin Time w/INRon INR Coag (PPP) [Relative time] 2.7 {INR} Normal [facility] Comment on above: Performed By: #### L 501.4021 #### [facility] [address] [place], [place], [address] PT Coag (PPP) [Time] 28.7 s High 11.7-14.9 [facility] Comment on above: Performed By: #### L 501.4021 #### [facility] [address] [place], [place], [address] ECHOCARDIOGRAM TRANSESOPHAGE AL (FER)on 08-10-2023 ECHOCARDIOGRAM TRANSESOPHAGEAL (FER) Test aborted as patient was unable to be properly sedated. Was given 7mg of Versed (unable to get Fentanyl given past adverse reaction) and still not sedated and very uncomfortable. Recommend rescheduling with general anesthesia. Table formatting from the original result was not included. Images from the original result were not included. Facility [facility] Patient Information Patient Name Swarmer, Markus B [...] - Reading 08/10/2023 Radha Gunter MD [place], Test Special Agent In Charge 08/10/2023 Vitals Height Weight BSA (Calculated - sq m) BP Pulse 127/80 76 Performing Staff Keli Gamboa RN Study Details The risks and alternatives of the procedure and conscious sedation were explained to the patient/family member and/or their power of wind science and planning. Informed consent was obtained. All staff members involved in the procedure completed a timeout prior to the start of the procedure verifying correct patient identity and correct procedure to be performed. A transesophageal echocardiography study (including agitated saline contrast study) was performed. Total time physician provided judh-nh-litf service beginning with the administration of sedation [...] Date/Status Modality Department 08/10/2023 Arrived FER TESTING, [facility] ECHOCARDIOGRAPHY ROSS Begin Exam End Exam 08/10/2023 [...] 1042 forearm, anterior, right 20 gauge Keli aGmboa RN 12:19 Medication Given midazolam (VERSED) injection [...] FER Is (more content not included)... Normal [facility] Test aborted as patient was unable [...] the patient/family member and/or their power of wind science and planning. Informed consent was obtained. All staff members involved in the procedure completed a timeout prior to the start of the procedure verifying correct patient identity and correct procedure to be performed. A transesophageal echocardiography study (including agitated saline contrast study) was performed. Total time physician provided tjkv-su-vzjw service beginning with the administration of sedation medications until the patient was sufficiently recovered after the procedure was 25 minutes. FER probe type used: Kristopher. Patient reaction to probe was poor. Indications for study: endocarditis / bacteremia. Complications include unsuccessful esophageal intubation. [facility] Radiology Study observation (narrative) [facility] ECHOCARDIOGRAM TRANSESOPHAGE AL (FER)Ordered By: Radha Gunter on 08-10-2023 [facility] Work Phone: Basic metabolic 2000 panelon 07-23-2023 Anion gap [Moles/Vol] 13 mmol/L Normal 9-18 [facility] Comment on above: Order Comment: Speci men Type: BLOOD SPECIMEN Ordering Facility: External Submitter Address: , , Performed By: #### 2 4325-3, 66996-6 #### [facility] CLIA [id number] [address] [place] [address] [place] Calcium [Mass/Vol] 8.7 mg/dL Normal 8.5-10.2 [facility] Comment on above: Order Comment: Speci men Type: BLOOD SPECIMEN Ordering Facility: External Submitter Address: , , Performed By: #### 2 4325-3, #### [facility] CLIA [id number] [address] [place] [id number] [place] Chloride [Moles/Vol] 102 mmol/L Normal 97-105 [facility] Comment on above: Order Comment: Speci men Type: BLOOD SPECIMEN Ordering Facility: External Submitter Address: , , Performed By: #### 2 4325-3, #### [facility] CLIA [id number] [address] [place] [address] [place] CO2 [Moles/Vol] 23 mmol/L Normal 22-30 [facility] Comment on above: Order Comment: Speci men Type: BLOOD SPECIMEN Ordering Facility: External Submitter Address: , , Performed By: #### 2 4325-3, #### [facility] CLIA [id number] [address] [place] [address] [place] Creatinine [Mass/Vol] 0.95 mg/dL Normal 0.73-1.22 [facility] Comment on above: Order Comment: Speci men Type: BLOOD SPECIMEN Ordering Facility: External Submitter Address: , , Performed By: #### 2 4325-3, #### [facility] CLIA [id number] [address] [place] [address] [place] Creatinine and Glomerular filtration rate.predicted panel (S/P/Bld) 82 mL/min/1.73m??? Normal >=60 [facility] Comment on above: Order [...] actual GFR. Performed By: #### 2 4325-3, 62803-0 #### [facility] CLIA [id number] [address] [address] [place] Glucose [Mass/Vol] 83 mg/dL Normal 74-99 [facility] Comment on above: Order Comment: Speci men Type: BLOOD SPECIMEN Ordering Facility: External Submitter Address: , , Result Comment: The [place] [employer] (ADA) provides guidance for cutoff [...] Standards of Medical Care in Diabetes 2016, [place] [employer]. Diabetes Care. 2016.39(Suppl 1). Performed By: #### 2 3, #### [facility] CLIA [id number] [address] [id number] [place] Potassium [Moles/Vol] 4.5 mmol/L Normal 3.7-5.1 [facility] Comment on above: Order Comment: Vannai myles Type: BLOOD SPECIMEN Ordering Facility: External Submitter Address: , , Performed By: #### 2 4325-3, #### [facility] CLIA [id number] [address] [address] [place] Sodium [Moles/Vol] 138 mmol/L Normal 136-144 [facility] Comment on above: Order Comment: Speci men Type: BLOOD SPECIMEN Ordering Facility: External Submitter Address: , , Performed By: #### 2 4325-3, 22053-5 #### [facility] CLIA [id number] [address] [place] [address] [place] Urea nitrogen [Mass/Vol] 13 mg/dL Normal 9-24 [facility] Comment on above: Order Comment: Speci men Type: BLOOD SPECIMEN Ordering Facility: External Submitter Address: , , Performed By: #### 2 4325-3, 28394-0 #### [facility] CLIA [id number] [address] [place] [address] [place] CBC W Auto Differential pane l (Bld)on 07-23-2023 Basophils (Bld) [#/Vol] 0.06 10*3/uL Normal <0.11 [facility] Comment on above: Order Comment: Speci men Type: BLOOD SPECIMEN Ordering Facility: External Submitter Address: , , Performed By: #### 5 7021-8 #### [facility] CLIA [id number] [address] [place] [address] [place] Basophils/100 WBC (Bld) 1.0 % Normal [facility] Comment on above: Order Comment: Speci men Type: BLOOD SPECIMEN Ordering Facility: External Submitter Address: , , Performed By: #### 5 7021-8 #### [facility] CLIA [id number] [address] [place] [address] [place] Differential cell count method Nom (Bld) Auto Normal [facility] Comment on above: Order Comment: Speci men Type: BLOOD SPECIMEN Ordering Facility: External Submitter Address: , , Performed By: #### 5 7021-8 #### [facility] CLIA [id number] [address] [place] [address] [place] Eosinophils (Bld) [#/Vol] 0.22 10*3/uL Normal <0.46 [facility] Comment on above: Order Comment: Speci men Type: BLOOD SPECIMEN Ordering Facility: External Submitter Address: , , Performed By: #### 5 7021-8 #### [facility] CLIA [id number] [address] [place] [address] [place] Eosinophils/100 WBC (Bld) 3.7 % Normal [facility] Comment on above: Order Comment: Speci men Type: BLOOD SPECIMEN Ordering Facility: External Submitter Address: , , Performed By: #### 5 7021-8 #### [facility] CLIA [id number] [address] [place] [address] [place] Erythrocyte distribution width (RBC) [Ratio] 15.3 % High 11.5-15.0 [facility] Comment on above: Order Comment: Speci men Type: BLOOD SPECIMEN Ordering Facility: External Submitter Address: , , Performed By: #### 5 7021-8 #### [facility] CLIA [id number] [address] [place] [address] [place] Hematocrit (Bld) [Volume fraction] 33.7 % Low 39.0-51.0 [facility] Comment on above: Order Comment: Speci men Type: BLOOD SPECIMEN Ordering Facility: External Submitter Address: , , Performed By: #### 5 7021-8 #### [facility] CLIA [id number] [address] [place] [address] [place] Hemoglobin (Bld) [Mass/Vol] 10.3 g/dL Low 13.0-17.0 [facility] Comment on above: Order Comment: Speci men Type: BLOOD SPECIMEN Ordering Facility: External Submitter Address: , , Performed By: #### 5 7021-8 #### [facility] CLIA [id number] [address] [place] [address] [place] Immature granulocytes (Bld) [#/Vol] 10*3/uL Normal <0.10 [facility] Comment on above: Order Comment: Speci men Type: BLOOD SPECIMEN Ordering Facility: External Submitter Address: , , Performed By: #### 5 7021-8 #### [facility] CLIA [id number] [address] [place] [address] [place] Immature granulocytes/100 WBC (Bld) 0.3 % Normal [facility] Comment on above: Order Comment: Speci men Type: BLOOD SPECIMEN Ordering Facility: External Submitter Address: , , Performed By: #### 5 7021-8 #### [facility] CLIA [id number] [address] [place] [address] [place] Lymphocytes (Bld) [#/Vol] 0.62 10*3/uL Low 1.00-4.00 [facility] Comment on above: Order Comment: Speci men Type: BLOOD SPECIMEN Ordering Facility: External Submitter Address: , , Performed By: #### 5 7021-8 #### [facility] [place] [id number] [address] [place] [address] [place] [facility] Lymphocytes/100 WBC (Bld) 10.5 % Normal [facility] Comment on above: Order Comment: Speci men Type: BLOOD SPECIMEN Ordering Facility: External Submitter Address: , , Performed By: #### 5 7021-8 #### [facility] [place] [id number] [address] [place] [address] [place] MCH (RBC) [Entitic mass] 27.8 pg Normal 26.0-34.0 [facility] Comment on above: Order Comment: Speci men Type: BLOOD SPECIMEN Ordering Facility: External Submitter Address: , , Performed By: #### 5 7021-8 #### [facility] CLIA [id number] [address] [place] [address] [place] MCHC (RBC) [Mass/Vol] 30.6 g/dL Normal 30.5-36.0 [facility] Comment on above: Order Comment: Speci men Type: BLOOD SPECIMEN Ordering Facility: External Submitter Address: , , Performed By: #### 5 7021-8 #### [facility] CLIA [id number] [address] [place] [address] [place] MCV (RBC) [Entitic vol] 91.1 fL Normal 80.0-100.0 [facility] Comment on above: Order Comment: Speci men Type: BLOOD SPECIMEN Ordering Facility: External Submitter Address: , , Performed By: #### 5 7021-8 #### [facility] CLIA [id number] [address] [place] [address] [place] Monocytes (Bld) [#/Vol] 1.09 10*3/uL High <0.87 [facility] Comment on above: Order Comment: Speci men Type: BLOOD SPECIMEN Ordering Facility: External Submitter Address: , , Performed By: #### 5 7021-8 #### [facility] CLIA [id number] [address] [place] [address] [place] Monocytes/100 WBC (Bld) 18.4 % Normal [facility] Comment on above: Order Comment: Speci men Type: BLOOD SPECIMEN Ordering Facility: External Submitter Address: , , Performed By: #### 5 7021-8 #### [facility] CLIA [id number] [address] [place] [address] [place] Neutrophils (Bld) [#/Vol] 3.92 10*3/uL Normal 1.45-7.50 [facility] Comment on above: Order Comment: Speci men Type: BLOOD SPECIMEN Ordering Facility: External Submitter Address: , , Performed By: #### 5 7021-8 #### [facility] CLIA [id number] [address] [place] [address] [place] Neutrophils/100 WBC (Bld) 66.1 % Normal [facility] Comment on above: Order Comment: Speci men Type: BLOOD SPECIMEN Ordering Facility: External Submitter Address: , , Performed By: #### 5 7021-8 #### [facility] CLIA [id number] [address] [place] [address] [place] Nucleated RBC (Bld) [#/Vol] 10*3/uL Normal <0.01 [facility] Comment on above: Order Comment: Speci men Type: BLOOD SPECIMEN Ordering Facility: External Submitter Address: , , Performed By: #### 5 7021-8 #### [facility] CLIA [id number] [facility] [place] [address] [place] Nucleated RBC/100 WBC (Bld) [Ratio] 0.0 /100 WBC Normal [facility] Comment on above: Order Comment: Speci men Type: BLOOD SPECIMEN Ordering Facility: External Submitter Address: , , Performed By: #### 5 7021-8 #### [facility] CLIA [id number] [address] [place] [address] [place] Platelet mean volume (Bld) [Entitic vol] 10.4 fL Normal 9.0-12.7 [facility] Comment on above: Order Comment: Speci men Type: BLOOD SPECIMEN Ordering Facility: External Submitter Address: , , Performed By: #### 5 7021-8 #### [facility] CLIA [id number] [address] [place] [address] [place] Platelets (Bld) [#/Vol] 276 10*3/uL Normal 150-400 [facility] Comment on above: Order Comment: Speci men Type: BLOOD SPECIMEN Ordering Facility: External Submitter Address: , , Performed By: #### 5 7021-8 #### [facility] CLIA [id number] [address] [place] [address] [place] RBC (Bld) [#/Vol] 3.70 10*6/uL Low 4.20-6.00 [facility] Comment on above: Order Comment: Speci men Type: BLOOD SPECIMEN Ordering Facility: External Submitter Address: , , Performed By: #### 5 7021-8 #### [facility] CLIA [id number] [address] [place] [address] [place] WBC (Bld) [#/Vol] 5.93 10*3/uL Normal 3.70-11.00 [facility] Comment on above: Order Comment: Speci men Type: BLOOD SPECIMEN Ordering Facility: External Submitter Address: , , Performed By: #### 5 7021-8 #### [facility] CLIA [id number] [address] [place] [address] [place] Hepatic function 2000 panelo n 07-23-2023 Albumin [Mass/Vol] 3.6 g/dL Low 3.9-4.9 [facility] Comment on above: Order Comment: Speci men Type: BLOOD SPECIMEN Ordering Facility: External Submitter Address: , , Performed By: #### 2 4325-3, 11280-3 #### [facility] CLIA [id number] [address] [place] [address] [place] ALP [Catalytic activity/Vol] 136 U/L High 38-113 [facility] Comment on above: Order Comment: Speci men Type: BLOOD SPECIMEN Ordering Facility: External Submitter Address: , , Performed By: #### 2 4325-3, 42853-8 #### [facility] CLIA [id number] [address] [place] [address] [place] ALT [Catalytic activity/Vol] U/L Low 10-54 [facility] Comment on above: Order Comment: Speci men Type: BLOOD SPECIMEN Ordering Facility: External Submitter Address: , , Result Comment: Resu lt rechecked. Performed By: #### 2 4325-3, 13928-3 #### [facility] CLIA [id number] [address] [place] [address] [place] AST [Catalytic activity/Vol] 21 U/L Normal 14-40 [facility] Comment on above: Order Comment: Speci men Type: BLOOD SPECIMEN Ordering Facility: External Submitter Address: , , Performed By: #### 2 4325-3, #### [facility] CLIA [id number] [address] [place] [address] [place] Bilirubin [Mass/Vol] 0.3 mg/dL Normal 0.2-1.3 [facility] Comment on above: Order Comment: Speci men Type: BLOOD SPECIMEN Ordering Facility: External Submitter Address: , , Performed By: #### 2 4325-3, #### [facility] CLIA [id number] [address] [place] [address] [place] Bilirubin.conjugated [Mass/Vol] mg/dL Normal <0.2 [facility] Comment on above: Order Comment: Speci men Type: BLOOD SPECIMEN Ordering Facility: External Submitter Address: , , Performed By: #### 2 4325-3, #### [facility] CLIA [id number] [address] [place] [address] [place] Protein [Mass/Vol] 6.6 g/dL Normal 6.3-8.0 [facility] Comment on above: Order Comment: Speci men Type: BLOOD SPECIMEN Ordering Facility: External Submitter Address: , , Performed By: #### 2 4325-3, #### [facility] CLIA [id number] [address] [place] [address] [place] Laboratory - Coagulationon 0 06-19-2023 INR Coag (Bld) [Relative time] 2.5 {INR} High 0.9 - 1.1 [facility] PT Coag (PPP) [Time] 27.0 s High [facility] No Panel InformationOrdered By: Jeff Reilly on 06-19-2023 [facility] Work Phone: No Panel Informationon 06-19 [facility] Interpretation and review of laboratory results Abnormal [facility] Laboratory - Chemistry and C hemistry - challengeon 06-18-2023 Anion gap [Moles/Vol] 13 mmol/L 7 - 17 mmol/L [facility] Chloride [Moles/Vol] 102 mmol/L 98 - 108 mmol/L [facility] CO2 [Moles/Vol] 28 mmol/L 21 - 31 mmol/L [facility] Creatinine [Mass/Vol] 1.03 mg/dL 0.70 - 1.30 mg/dL [facility] Magnesium [Mass/Vol] 2.0 mg/dL 1.6 - 2.6 mg/dL [facility] Potassium [Moles/Vol] 4.6 mmol/L 3.5 - 5.0 mmol/L [facility] Sodium [Moles/Vol] 138 mmol/L 135 - 145 mmol/L [facility] Urea nitrogen [Mass/Vol] 20 mg/dL 7 - 25 mg/dL [facility] Urea nitrogen/Creatinine [Mass ratio] 19 mg/mg [facility] Laboratory - CoagulationOrde red By: Akash Hastings on 06-18-2023 aPTT Coag (PPP) [Time] 123.4 s High [facility] Laboratory - Coagulationon 0 06-18-2023 INR Coag (Bld) [Relative time] 2.5 {INR} High 0.9 - 1.1 [facility] PT Coag (PPP) [Time] 26.5 s High [facility] No Panel Informationon 06-18 [facility] Interpretation and review of laboratory results Abnormal [facility] eGFR, CKD-EPI, Male 74 - PINF [facility] Comment on above: Reported eGFR is bas ed on the CKD-EPI 2020 equation using creatinine, age, and sex. Interpretation and review of laboratory results Normal [facility] No Panel InformationOrdered By: Akash Hastings on 06-18-2023 Interpretation and review of laboratory results Abnormal [facility] Laboratory - Chemistry and C hemistry - challengeon 06-17-2023 Creatinine [Mass/Vol] 1.04 mg/dL 0.70 - 1.30 mg/dL [facility] Laboratory - Coagulationon 0 06-17-2023 aPTT Coag (PPP) [Time] 74.5 s High [facility] aPTT Coag (PPP) [Time] 101.7 s High [facility] aPTT Coag (PPP) [Time] 91.6 s High OS [facility] INR Coag (Bld) [Relative time] 1.7 {INR} High 0.9 - 1.1 [facility] PT Coag (PPP) [Time] 20.0 s High [facility] Laboratory - Hematology and Cell countson 06-17-2023 Platelet mean volume (Bld) [Entitic vol] 10.2 fL 8.7 - 12.3 fL [facility] Platelets (Bld) [#/Vol] 270 10*3/uL 146 - 337 K/uL [facility] No Panel Informationon 06-17 Interpretation and review of laboratory results Abnormal [facility] Interpretation and review of laboratory results Abnormal [facility] Interpretation and review of laboratory results Normal [facility] Interpretation and review of laboratory results Abnormal [facility] Interpretation and review of laboratory results Abnormal [facility] eGFR, CKD-EPI, Male 73 - PINF [facility] Comment on above: Reported eGFR is bas ed on the CKD-EPI 2020 equation using creatinine, age, and sex. Interpretation and review of laboratory results Normal [facility] Bacteria identified Cx Nom ( Bld)on 06-16-2023 Bacteria identified Cx Nom (Unsp spec) NO GROWTH DAY 5 OF 5 [facility] Results may be compromised due to volume of BACT\ALERT bottle below 8mLs. The optimal blood volume is 8-10 mls per aerobic/anaerobic blood culture bottle [facility] Bacteria identified Cx Nom (Unsp spec) NO GROWTH DAY 5 OF 5 [facility] Laboratory - Coagulationon 0 06-16-2023 aPTT Coag (PPP) [Time] 71.1 s High [facility] aPTT Coag (PPP) [Time] 116.6 s High OS [facility] INR Coag (Bld) [Relative time] 1.4 {INR} High 0.9 - 1.1 [facility] PT Coag (PPP) [Time] 17.2 s High [facility] Laboratory - CoagulationOrde red By: Leroy Daniels on 06-16-2023 aPTT Coag (PPP) [Time] 72.3 s High OS [facility] Comment on above: Results inconsistent with previous results Laboratory - CoagulationOrde red By: Nato José on 06-16-2023 aPTT Coag (PPP) [Time] 91.4 s High OS [facility] No Panel Informationon 06-16 Interpretation and review of laboratory results Abnormal [facility] Interpretation and review of laboratory results Abnormal [facility] Interpretation and review of laboratory results Abnormal [facility] No Panel InformationOrdered By: Leroy Daniels on 06-16-2023 Interpretation and review of laboratory results Abnormal [facility] No Panel InformationOrdered By: Nato José on 06-16-2023 Interpretation and review of laboratory results Abnormal [facility] Laboratory - Chemistry and C hemistry - challengeon 06-15-2023 Anion gap [Moles/Vol] 12 mmol/L 7 - 17 mmol/L [facility] Chloride [Moles/Vol] 103 mmol/L 98 - 108 mmol/L [facility] CO2 [Moles/Vol] 28 mmol/L 21 - 31 mmol/L [facility] Creatinine [Mass/Vol] 1.03 mg/dL 0.70 - 1.30 mg/dL [facility] Glucose [Mass/Vol] 93 mg/dL 70 - 99 mg/dL [facility] Magnesium [Mass/Vol] 1.9 mg/dL 1.6 - 2.6 mg/dL [facility] Osmolality Calc [Osmolality] 294 [facility] Potassium [Moles/Vol] 4.4 mmol/L 3.5 - 5.0 mmol/L [facility] Sodium [Moles/Vol] 139 mmol/L 135 - 145 mmol/L [facility] Urea nitrogen [Mass/Vol] 20 mg/dL 7 - 25 mg/dL [facility] Urea nitrogen/Creatinine [Mass ratio] 19 mg/mg [facility] Laboratory - Coagulationon 0 06-15-2023 aPTT Coag (PPP) [Time] 67.8 s High OS [facility] aPTT Coag (PPP) [Time] 82.6 s High OS [facility] INR Coag (Bld) [Relative time] 1.2 {INR} High 0.9 - 1.1 [facility] PT Coag (PPP) [Time] 15.5 s High [facility] Laboratory - Hematology and Cell countson 06-15-2023 Platelet mean volume (Bld) [Entitic vol] 10.4 fL 8.7 - 12.3 fL [facility] Platelets (Bld) [#/Vol] 269 10*3/uL 146 - 337 K/uL [facility] No Panel Informationon 06-15 Interpretation and review of laboratory results Abnormal [facility] Interpretation and review of laboratory results Normal [facility] Interpretation and review of laboratory results Abnormal [facility] Interpretation and review of laboratory results Abnormal [facility] eGFR, CKD-EPI, Male 74 - PINF [facility] Comment on above: Reported eGFR is bas ed on the CKD-EPI 2020 equation using creatinine, age, and sex. Interpretation and review of laboratory results Normal [facility] Laboratory - Chemistry and C hemistry - challengeon 06-14-2023 Anion gap [Moles/Vol] 12 mmol/L 7 - 17 mmol/L [facility] Chloride [Moles/Vol] 104 mmol/L 98 - 108 mmol/L [facility] CO2 [Moles/Vol] 26 mmol/L 21 - 31 [facility] Creatinine [Mass/Vol] 1.11 mg/dL 0.70 - 1.30 mg/dL [facility] Glucose [Mass/Vol] 132 mg/dL High 70 - 99 mg/dL [facility] Magnesium [Mass/Vol] 1.9 mg/dL 1.6 - 2.6 mg/dL [facility] Osmolality Calc [Osmolality] 295 [facility] Potassium [Moles/Vol] 4.2 mmol/L 3.5 - 5.0 mmol/L [facility] Sodium [Moles/Vol] 138 mmol/L 135 - 145 mmol/L [facility] Urea nitrogen [Mass/Vol] 22 mg/dL 7 - 25 mg/dL [facility] Urea nitrogen/Creatinine [Mass ratio] 20 mg/mg [facility] Laboratory - Coagulationon 0 06-14-2023 aPTT Coag (PPP) [Time] 81.6 s High OS [facility] aPTT Coag (PPP) [Time] 85.3 s High OS [facility] INR Coag (Bld) [Relative time] 1.3 {INR} High 0.9 - 1.1 [facility] PT Coag (PPP) [Time] 16.3 s High [facility] No Panel Informationon 06-14 [facility] Interpretation and review of laboratory results Abnormal [facility] Interpretation and review of laboratory results Abnormal [facility] Interpretation and review of laboratory results Abnormal [facility] eGFR, CKD-EPI, Male 68 - PINF [facility] Comment on above: Reported eGFR is bas ed on the CKD-EPI 2020 equation using creatinine, age, and sex. Interpretation and review of laboratory results Abnormal [facility] Interpretation and review of laboratory results Normal [facility] Port[facility] Chest Viewson IMPRESSION: Appropriately positioned [...] I have reviewed and approved this report. [facility] Radiology Study observation (narrative) [facility] Bacteria identified Cx Nom ( Bld)on 06-13-2023 Bacteria identified Cx Nom (Unsp spec) [facility] (Unsp spec) [facility] - Chemistry and C hemistry - challengeon 06-13-2023 Anion gap [Moles/Vol] 12 mmol/L 7 - 17 mmol/L [facility] Chloride [Moles/Vol] 104 mmol/L 98 - 108 mmol/L [facility] CO2 [Moles/Vol] 26 mmol/L 21 - 31 mmol/L [facility] Creatinine [Mass/Vol] 1.06 mg/dL 0.70 - 1.30 mg/dL [facility] Glucose [Mass/Vol] 95 mg/dL 70 - 99 mg/dL [facility] Magnesium [Mass/Vol] 2.0 mg/dL 1.6 - 2.6 mg/dL [facility] Osmolality Calc [Osmolality] 292 [facility] Potassium [Moles/Vol] 4.2 mmol/L 3.5 - 5.0 mmol/L [facility] Sodium [Moles/Vol] 138 mmol/L 135 - 145 mmol/L [facility] [facility] Urea nitrogen [Mass/Vol] 21 mg/dL 7 - 25 mg/dL [facility] Urea nitrogen/Creatinine [Mass ratio] 20 [facility] Coagulation[facility] red By: William Das on 06-13-2023 aPTT Coag (PPP) [Time] 72.6 s High OS [facility] - Coagulationon 0 06-13-2023 aPTT Coag (PPP) [Time] 53.4 s High OS [facility] aPTT Coag (PPP) [Time] 131.1 s High OS [facility] INR Coag (Bld) [Relative time] 1.4 {INR} High 0.9 - 1.1 [facility] PT Coag (PPP) [Time] 17.3 s High [facility] Laboratory - CoagulationOrde red By: Columba Salmon on 06-13-2023 aPTT Coag (PPP) [Time] 52.2 s High OS [facility] - Drug toxicology Ordered By: Malika Zepeda on 06-13-2023 Gentamicin trough [Mass/Vol] 0.6 mg/L [facility] Laboratory - Hematology and Cell countson 06-13-2023 Platelet mean volume (Bld) [Entitic vol] 10.3 fL 8.7 - 12.3 fL [facility] Platelets (Bld) [#/Vol] 278 10*3/uL 146 - 337 K/uL [facility] No Panel Informationon 06-13 [facility] Interpretation and review of laboratory results Abnormal [facility] Interpretation and review of laboratory results Normal [facility] Interpretation and review of laboratory results Abnormal [facility] eGFR, CKD-EPI, Male 72 - PINF [facility] Comment on above: Reported eGFR is bas ed on the CKD-EPI 2020 equation using creatinine, age, and sex. Interpretation and review of laboratory results Normal [facility] Interpretation and review of laboratory results Abnormal [facility] No Panel InformationOrdered By: William Das on 06-13-2023 Interpretation and review of laboratory results Abnormal [facility] No Panel InformationOrdered By: Malika Zepeda on 06-13-2023 Interpretation and review of laboratory results Normal [facility] No Panel InformationOrdered By: Columba Salmon on 06-13-2023 Interpretation and review of laboratory results Abnormal [facility] Laboratory - Chemistry and C hemistry - challengeon 06-12-2023 Albumin [Mass/Vol] 3.3 g/dL Low 3.5 - 5.0 g/dL [facility] Anion gap [Moles/Vol] 13 mmol/L 7 - 17 mmol/L [facility] Chloride [Moles/Vol] 101 mmol/L 98 - 108 mmol/L [facility] CO2 [Moles/Vol] 27 mmol/L 21 - 31 [facility] Creatinine [Mass/Vol] 1.12 mg/dL 0.70 - 1.30 mg/dL [facility] Glucose [Mass/Vol] 96 mg/dL 70 - 99 mg/dL [facility] Magnesium [Mass/Vol] 2.0 mg/dL 1.6 - 2.6 mg/dL [facility] Osmolality Calc [Osmolality] 290 [facility] Potassium [Moles/Vol] 4.4 mmol/L 3.5 - 5.0 mmol/L [facility] Sodium [Moles/Vol] 137 mmol/L 135 - 145 mmol/L [facility] Urea nitrogen [Mass/Vol] 20 mg/dL 7 - 25 mg/dL [facility] Urea nitrogen/Creatinine [Mass ratio] 18 mg/mg [facility] Laboratory - Coagulationon 0 06-12-2023 aPTT Coag (PPP) [Time] 59.8 s High OS [facility] INR Coag (Bld) [Relative time] 1.5 {INR} High 0.9 - 1.1 [facility] PT Coag (PPP) [Time] 17.7 s High [facility] Laboratory - CoagulationOrde red By: Jeff Dwyer on 06-12-2023 aPTT Coag (PPP) [Time] 63.5 s High OS [facility] - CoagulationOrde red By: Silvestre Park on 06-12-2023 aPTT Coag (PPP) [Time] 121.0 s High OS [facility] - Drug toxicology Ordered By: Biju Ivey on 06-12-2023 Gentamicin peak [Mass/Vol] 2.8 [facility] No Panel InformationOrdered By: Biju Ivey on 06-12-2023 Interpretation and review of laboratory results Normal [facility] No Panel Informationon 06-12 Interpretation and review of laboratory results Abnormal [facility] Interpretation and review of laboratory results Abnormal [facility] eGFR, CKD-EPI, Male 67 - PINF [facility] Comment on above: Reported eGFR is bas ed on the CKD-EPI 2020 equation using creatinine, age, and sex. Interpretation and review of laboratory results Normal [facility] Interpretation and review of laboratory results Abnormal [facility] No Panel InformationOrdered By: Jeff Dwyer on 06-12-2023 Interpretation and review of laboratory results Abnormal [facility] No Panel InformationOrdered By: Silvestre Park on 06-12-2023 Interpretation and review of laboratory results Abnormal [facility] Laboratory - Chemistry and C hemistry - challengeon 06-11-2023 Anion gap [Moles/Vol] 14 mmol/L 7 - 17 mmol/L [facility] Chloride [Moles/Vol] 100 mmol/L 98 - 108 mmol/L [facility] CO2 [Moles/Vol] 27 mmol/L 21 - 31 mmol/L [facility] Creatinine [Mass/Vol] 1.10 mg/dL 0.70 - 1.30 mg/dL [facility] Glucose [Mass/Vol] 81 mg/dL 70 - 99 mg/dL [facility] Osmolality Calc [Osmolality] 290 [facility] Potassium [Moles/Vol] 4.4 mmol/L 3.5 - 5.0 mmol/L [facility] Sodium [Moles/Vol] 137 mmol/L 135 - 145 mmol/L [facility] Urea nitrogen [Mass/Vol] 21 mg/dL 7 - 25 mg/dL [facility] Urea nitrogen/Creatinine [Mass ratio] 19 mg/mg [facility] Magnesium [Mass/Vol] 2.0 mg/dL 1.6 - 2.6 mg/dL [facility] Potassium [Moles/Vol] 4.2 mmol/L 3.5 - 5.0 mmol/L [facility] Laboratory - CoagulationOrde red By: Oralia Pinto on 06-11-2023 aPTT Coag (PPP) [Time] 80.2 s High OS [facility] - Coagulationon 0 06-11-2023 aPTT Coag (PPP) [Time] 39.7 s High OS [facility] INR Coag (Bld) [Relative time] 1.5 {INR} High 0.9 - 1.1 [facility] PT Coag (PPP) [Time] 18.3 s High [facility] Laboratory - CoagulationOrde red By: Xu Martin on 06-11-2023 aPTT Coag (PPP) [Time] 60.8 s High OS [facility] - CoagulationOrde red By: Louis Wilks on 06-11-2023 aPTT Coag (PPP) [Time] 140.1 s High OS [facility] - Hematology and Cell countson 06-11-2023 Platelet mean volume (Bld) [Entitic vol] 10.6 fL 8.7 - 12.3 fL [facility] Platelets (Bld) [#/Vol] 260 10*3/uL 146 - 337 K/uL [facility] No Panel InformationOrdered By: Oralia Pinot on 06-11-2023 Interpretation and review of laboratory results Abnormal [facility] No Panel Informationon 06-11 [facility] Interpretation and review of laboratory results Abnormal [facility] Interpretation and review of laboratory results Normal [facility] eGFR, CKD-EPI, Male 69 - PINF [facility] Comment on above: Reported eGFR is bas ed on the CKD-EPI 2020 equation using creatinine, age, and sex. [facility] Interpretation and review of laboratory results Abnormal [facility] Interpretation and review of laboratory results Normal [facility] No Panel InformationOrdered By: Xu Martin on 06-11-2023 Interpretation and review of laboratory results Abnormal [facility] No Panel InformationOrdered By: Louis Wilks on 06-11-2023 Interpretation and review of laboratory results Abnormal [facility] Bacteria identified Cx Nom ( Bld)on 06-10-2023 Bacteria identified Cx Nom (Unsp spec) Growth [facility] Bacteria identified Cx Nom (Unsp spec) STAPHYLOCOCCUS AUREUS Abnormal [facility] Comment on above: Susceptibilities set up on 06/08/23 Do not use oral antibiotics for this type of bacteremia. If an oral antibiotic is requested, please consult the ASP team (pager [phone]) for guidance. Interpretation and review of laboratory results Abnormal [facility] Results may be compromised due to volume of BACT\ALERT bottle exceeding 10mLs . The optimal blood volume is 8-10 mls per aerobic/anaerobic blood culture bottle. [facility] Bacteria identified Cx Nom ( Bld)Ordered By: Tiny Mcallister on 06-10-2023 Bacteria identified Cx Nom (Unsp spec) Growth [facility] Bacteria identified Cx Nom (Unsp spec) STAPHYLOCOCCUS AUREUS Abnormal [facility] Comment on above: Refer to specimen 24 [id number] for susceptibilities. Interpretation and review of laboratory results Abnormal [facility] Results may be compromised due to volume of BACT\ALERT bottle exceeding 10mLs . The optimal blood volume is 8-10 mls per aerobic/anaerobic blood culture bottle. [facility] Laboratory - Chemistry and C hemistry - challengeon 06-10-2023 Anion gap [Moles/Vol] 12 mmol/L 7 - 17 mmol/L [facility] Chloride [Moles/Vol] 104 mmol/L 98 - 108 mmol/L [facility] CO2 [Moles/Vol] 26 mmol/L 21 - 31 [facility] Creatinine [Mass/Vol] 0.91 mg/dL 0.70 - 1.30 mg/dL [facility] Glucose [Mass/Vol] 87 mg/dL 70 - 99 mg/dL [facility] Magnesium [Mass/Vol] 1.8 mg/dL 1.6 - 2.6 mg/dL [facility] Osmolality Calc [Osmolality] 291 [facility] Potassium [Moles/Vol] 3.9 mmol/L 3.5 - 5.0 mmol/L [facility] Sodium [Moles/Vol] 138 mmol/L 135 - 145 mmol/L [facility] Urea nitrogen [Mass/Vol] 21 mg/dL 7 - 25 mg/dL [facility] Urea nitrogen/Creatinine [Mass ratio] 23 mg/mg [facility] - CoagulationOrde red By: Jennifer Flower on 06-10-2023 aPTT Coag (PPP) [Time] 102.8 s High OS [facility] - Coagulationon 0 06-10-2023 aPTT Coag (PPP) [Time] 62.5 s High OS [facility] - CoagulationOrde red By: Coral Juárez on 06-10-2023 aPTT Coag (PPP) [Time] 55.2 s High OS [facility] - CoagulationOrde red By: Lubna Snow on 06-10-2023 aPTT Coag (PPP) [Time] 138.0 s High OS [facility] INR Coag (Bld) [Relative time] 1.4 {INR} High 0.9 - 1.1 [facility] PT Coag (PPP) [Time] 17.1 s High [facility] Ordered By: Sonia Boateng on 06-10-2023 Gentamicin trough [Mass/Vol] 1.5 mg/L Crit[facility] No Panel InformationOrdered By: Jennifer Flower on 06-10-2023 Interpretation and review of laboratory results Abnormal [facility] No Panel InformationOrdered By: Sonia Boateng on 06-10-2023 Interpretation and review of laboratory results Abnormal [facility] No Panel Informationon 06-10 Interpretation and review of laboratory results Abnormal [facility] eGFR, CKD-EPI, Male 86 - PINF [facility] Comment on above: Reported eGFR is bas ed on the CKD-EPI 2020 equation using creatinine, age, and sex. Interpretation and review of laboratory results Normal [facility] No Panel InformationOrdered By: Coral Juárez on 06-10-2023 Interpretation and review of laboratory results Abnormal [facility] No Panel InformationOrdered By: Lubna Snow on 06-10-2023 Interpretation and review of laboratory results Abnormal [facility] Laboratory - Chemistry and C hemistry - challengeon 06-09-2023 Anion gap [Moles/Vol] 11 mmol/L 7 - 17 mmol/L [facility] Chloride [Moles/Vol] 104 mmol/L 98 - 108 mmol/L [facility] CO2 [Moles/Vol] 26 mmol/L 21 - 31 mmol/L [facility] Creatinine [Mass/Vol] 0.93 mg/dL 0.70 - 1.30 mg/dL [facility] Glucose [Mass/Vol] 100 mg/dL High 70 - 99 mg/dL [facility] Magnesium [Mass/Vol] 1.9 mg/dL 1.6 - 2.6 mg/dL [facility] Osmolality Calc [Osmolality] 291 [facility] Potassium [Moles/Vol] 4.2 mmol/L 3.5 - 5.0 mmol/L [facility] Sodium [Moles/Vol] 137 mmol/L 135 - 145 mmol/L [facility] Urea nitrogen [Mass/Vol] 23 mg/dL 7 - 25 mg/dL [facility] Urea nitrogen/Creatinine [Mass ratio] 25 mg/mg [facility] Laboratory - Coagulationon 0 1-06-2024 aPTT Coag (PPP) [Time] 92.7 s High OS [facility] INR Coag (Bld) [Relative time] 1.4 {INR} High 0.9 - 1.1 [facility] PT Coag (PPP) [Time] 16.9 s High [facility] aPTT Coag (PPP) [Time] 101.7 s High OS [facility] aPTT Coag (PPP) [Time] 91.6 s High OS [facility] Laboratory - Hematology and Cell countson 06-09-2023 Platelet mean volume (Bld) [Entitic vol] 10.3 fL 8.7 - 12.3 fL [facility] Platelets (Bld) [#/Vol] 287 10*3/uL 146 - 337 K/uL [facility] No Panel Informationon 06-09 Interpretation and review of laboratory results Abnormal [facility] Interpretation and review of laboratory results Normal [facility] Interpretation and review of laboratory results Abnormal [facility] Interpretation and review of laboratory results Abnormal [facility] eGFR, CKD-EPI, Male 84 - PINF [facility] Comment on above: Reported eGFR is bas ed on the CKD-EPI 2020 equation using creatinine, age, and sex. Interpretation and review of laboratory results Normal [facility] Interpretation and review of laboratory results Abnormal [facility] No Panel InformationOrdered By: Unassigned Pacs on 06-09-2023 [facility] Work Phone: Laboratory - Chemistry and C hemistry - challengeon 06-08-2023 Anion gap [Moles/Vol] 13 mmol/L 7 - 17 mmol/L [facility] Chloride [Moles/Vol] 103 mmol/L 98 - 108 mmol/L [facility] CO2 [Moles/Vol] 25 mmol/L 21 - 31 mmol/L [facility] Creatinine [Mass/Vol] 0.92 mg/dL 0.70 - 1.30 mg/dL [facility] Glucose [Mass/Vol] 116 mg/dL High 70 - 99 mg/dL [facility] Osmolality Calc [Osmolality] 291 [facility] Potassium [Moles/Vol] 3.9 mmol/L 3.5 - 5.0 mmol/L [facility] Sodium [Moles/Vol] 137 mmol/L 135 - 145 mmol/L [facility] Urea nitrogen [Mass/Vol] 20 mg/dL 7 - 25 mg/dL [facility] Urea nitrogen/Creatinine [Mass ratio] 22 mg/mg [facility] Magnesium [Mass/Vol] 2.0 mg/dL 1.6 - 2.6 mg/dL [facility] Laboratory - Coagulationon 0 06-08-2023 aPTT Coag (PPP) [Time] 80.1 s High OS [facility] aPTT Coag (PPP) [Time] 69.8 s High [facility] Laboratory - CoagulationOrde red By: Kalina Mejia on 06-08-2023 aPTT Coag (PPP) [Time] 92.6 s High [facility] Laboratory - Drug toxicology Ordered By: Eder Ramirez on 06-08-2023 Gentamicin trough [Mass/Vol] 1.1 mg/L Critically high [facility] Laboratory - Hematology and Cell countson 06-08-2023 Erythrocyte distribution width (RBC) [Ratio] 18.7 % High 10.9 - 14.3 % [facility] Hematocrit (Bld) [Volume fraction] 32.6 % Low 39.6 - 48.8 % [facility] Hemoglobin (Bld) [Mass/Vol] 10.2 g/dL Low 13.4 - 16.8 g/dL [facility] MCH (RBC) [Entitic mass] 28.3 pg 26.1 - 33.3 pg [facility] MCHC (RBC) [Mass/Vol] 31.3 g/dL Low 31.9 - 36.5 g/dL [facility] MCV (RBC) [Entitic vol] 90.6 fL 79.0 - 94.5 fL [facility] Platelet mean volume (Bld) [Entitic vol] 10.9 fL 8.7 - 12.3 fL [facility] Platelets (Bld) [#/Vol] 226 10*3/uL 146 - 337 K/uL [facility] RBC (Bld) [#/Vol] 3.60 10*6/uL Low [facility] WBC (Bld) [#/Vol] 15.06 10*3/uL High 3.73 - 10 .10 K/uL [facility] No Panel Informationon 06-08 Interpretation and review of laboratory results Abnormal [facility] Interpretation and review of laboratory results Abnormal [facility] eGFR, CKD-EPI, Male 85 - PINF [facility] Comment on above: Reported eGFR is bas ed on the CKD-EPI 2020 equation using creatinine, age, and sex. Interpretation and review of laboratory results Abnormal [facility] Interpretation and review of laboratory results Normal [facility] Interpretation and review of laboratory results Abnormal [facility] No Panel InformationOrdered By: Eder Ramirez on 06-08-2023 Interpretation and review of laboratory results Abnormal [facility] No Panel InformationOrdered By: Kalina Mejia on 06-08-2023 Interpretation and review of laboratory results Abnormal [facility] Laboratory - CoagulationOrde red By: Jeff Hebert on 06-07-2023 aPTT Coag (PPP) [Time] 54.2 s High OS [facility] Laboratory - Coagulationon 0 06-07-2023 aPTT Coag (PPP) [Time] 39.9 s High OS [facility] aPTT Coag (PPP) [Time] 43.5 s High OS [facility] INR Coag (Bld) [Relative time] 2.1 {INR} High 0.9 - 1.1 [facility] PT Coag (PPP) [Time] 23.3 s High [facility] Laboratory - Hematology and Cell countson 06-07-2023 Erythrocyte distribution width (RBC) [Ratio] 19.1 % High 10.9 - 14.3 % [facility] Hematocrit (Bld) [Volume fraction] 33.5 % Low 39.6 - 48.8 % [facility] Hemoglobin (Bld) [Mass/Vol] 10.6 g/dL Low 13.4 - 16.8 g/dL [facility] MCH (RBC) [Entitic mass] 27.8 pg 26.1 - 33.3 pg [facility] MCHC (RBC) [Mass/Vol] 31.6 g/dL Low 31.9 - 36.5 g/dL [facility] MCV (RBC) [Entitic vol] 87.9 fL 79.0 - 94.5 fL [facility] Platelet mean volume (Bld) [Entitic vol] 10.3 fL 8.7 - 12.3 fL [facility] Platelets (Bld) [#/Vol] 222 10*3/uL 146 - 337 K/uL [facility] RBC (Bld) [#/Vol] 3.81 10*6/uL Low [facility] WBC (Bld) [#/Vol] 14.90 10*3/uL High 3.73 - 10 .10 K/uL [facility] Laboratory - Microbiology an d Antimicrobial susceptibilityOrdered By: Gm Scott on 06-07-2023 C. albicans DNA MICHELLE+non-probe Ql (Pos bld culture) Not detected Not Detected [facility] C. glabrata DNA MICHELLE+non-probe Ql (Pos bld culture) Not detected Not Detected [facility] C. krusei DNA MICHELLE+non-probe Ql (Pos bld culture) Not detected Not Detected [facility] C. parapsilosis DNA MICHELLE+non-probe Ql (Pos bld culture) Not detected Not Detected [facility] C. tropicalis DNA MICHELLE+non-probe Ql (Pos bld culture) Not detected Not Detected [facility] E. cloacae complex DNA MICHELLE+non-probe Ql (Pos bld culture) Not detected Not [facility]ed [facility] E. coli DNA MICHELLE+non-probe Ql (Pos bld culture) Not detected Not Detected [facility] H. influenzae DNA MICHELLE+non-probe Ql (Pos bld culture) Not detected Not Detected [facility] K. oxytoca DNA MICHELLE+non-probe Ql (Pos bld culture) Not detected Not Detected [facility] L. monocytogenes DNA MICHELLE+non-probe Ql (Pos bld culture) Not detected Not Detected [facility] N. meningitidis DNA MICHELLE+non-probe Ql (Pos bld culture) Not detected Not Detected [facility] P. aeruginosa DNA MICHELLE+non-probe Ql (Pos bld culture) Not detected Not Detected [facility] Proteus sp DNA MICHELLE+non-probe Ql (Pos bld culture) Not detected Not Detected [facility] S. agalactiae DNA MICHELLE+non-probe Ql (Pos bld culture) Not detected Not Detected [facility] S. aureus DNA MICHELLE+non-probe Ql (Pos bld culture) Detected Abnormal Not Detected [facility] S. marcescens DNA MICHELLE+non-probe Ql (Pos bld culture) Not detected Not [facility] S. pneumoniae DNA MICHELLE+non-probe Ql (Pos bld culture) Not detected Not Detected [facility] S. pyogenes DNA MICHELLE+non-probe Ql (Pos bld culture) Not detected Not Detected [facility] Staphylococcus sp DNA MICHELLE+non-probe Ql (Pos bld culture) Detected Abnormal Not Detected [facility] Streptococcus sp DNA MICHELLE+non-probe Ql (Pos bld culture) Not detected Not [facility]ed [facility] No Panel InformationOrdered By: Gm Scott on 06-07-2023 Acinetobacter calcoaceticus-baumanni i complex DNA Not detected Not [facility]ed [facility] Bacteroides fragilis DNA Not detected Not [facility] Shital auris DNA Not detected Not Detected [facility] Cryptococcus diaz/neoformans DNA Not detected Not Detected [facility] Enterobacterales DNA Not detected Not Detected [facility] Enterococcus faecalis DNA Not detected Not Detected [facility] Enterococcus faecium DNA Not detected Not Detected [facility] Interpretation and review of laboratory results Abnormal [facility] Klebsiella aerogenes DNA Not detected Not Detected [facility] Klebsiella pneumoniae group DNA Not detected Not Detected [facility] mecA/C and MREJ (MRSA) Not detected Not Detecte d [facility] Salmonella species DNA Not detected Not Detecte d [facility] Staphylococcus epidermidis DNA Not detected Not Detected [facility] Staphylococcus lugdunensis DNA Not detected Not Detected [facility] Stenotrophomonas maltophilia DNA Not detected Not Detected [facility] Results may be compromised due to volume [...] conjunction with other clinical and laboratory findings. [facility] No Panel InformationOrdered By: Jeff Hebert on 06-07-2023 Interpretation and review of laboratory results Abnormal [facility] No Panel Informationon 06-07 Interpretation and review of laboratory results Abnormal [facility] Interpretation and review of laboratory results Abnormal [facility] Interpretation and review of laboratory results Abnormal [facility] Portable XR Chest Viewson IMPRESSION: [...] CVC in place, no complication. Pulmonary edema. [facility] Portable XR Chest ViewsOrder ed By: Louie Mahmood on 06-07-2023 [facility] Work Phone: Laboratory - Chemistry and C hemistry - challengeon 06-06-2023 Anion gap [Moles/Vol] 13 mmol/L 7 - 17 mmol[facility] Chloride [Moles/Vol] 103 mmol/L 98 - 108 mmol/L [facility] CO2 [Moles/Vol] 28 mmol/L 21 - 31 mmol/L [facility] Creatinine [Mass/Vol] 0.95 mg/dL 0.70 - 1.30 mg/dL [facility] Glucose [Mass/Vol] 94 mg/dL 70 - 99 mg/dL [facility] Magnesium [Mass/Vol] 1.7 mg/dL 1.6 - 2.6 mg/dL [facility] Osmolality Calc [Osmolality] 293 [facility] Potassium [Moles/Vol] 3.5 mmol/L 3.5 - 5.0 mmol/L [facility] Sodium [Moles/Vol] 140 mmol/L 135 - 145 mmol/L [facility] Urea nitrogen [Mass/Vol] 16 mg/dL 7 - 25 mg/dL [facility] Urea nitrogen/Creatinine [Mass ratio] 17 mg/mg [facility] Laboratory - Coagulationon 0 06-06-2023 aPTT Coag (PPP) [Time] 41.9 s High [facility] INR Coag (Bld) [Relative time] 2.5 {INR} High 0.9 - 1.1 [facility] PT Coag (PPP) [Time] 26.7 s High [facility] Laboratory - Hematology and Cell countson 06-06-2023 Basophils (Bld) [#/Vol] 0.05 10*3/uL 0.00 - 0.09 K/uL [facility] Basophils/100 WBC (Bld) 0.3 % [facility] Differential cell count method Nom (Bld) Electronic Differential [facility] Eosinophils (Bld) [#/Vol] 0.07 10*3/uL 0.00 - 0.48 K/uL [facility] Eosinophils/100 WBC (Bld) 0.4 % [facility] Erythrocyte distribution width (RBC) [Ratio] 19.4 % High 10.9 - 14.3 % [facility] Hematocrit (Bld) [Volume fraction] 37.1 % Low 39.6 - 48.8 % [facility] Hemoglobin (Bld) [Mass/Vol] 11.5 g/dL Low 13.4 - 16.8 g/dL [facility] Immature granulocytes (Bld) [#/Vol] 0.33 10*3/uL High NINF - 0.07 K/uL [facility] Immature granulocytes/100 WBC (Bld) 2.0 % [facility] Lymphocytes (Bld) [#/Vol] 0.80 10*3/uL Low 0.83 - 3.57 K/uL [facility] Lymphocytes/100 WBC (Bld) 4.9 % [facility] MCH (RBC) [Entitic mass] 28.2 pg 26.1 - 33.3 pg [facility] MCHC (RBC) [Mass/Vol] 31.0 g/dL Low 31.9 - 36.5 g/dL [facility] MCV (RBC) [Entitic vol] 90.9 fL 79.0 - 94.5 fL [facility] Monocytes (Bld) [#/Vol] 1.50 10*3/uL High 0.24 - 0.93 K/uL [facility] Monocytes/100 WBC (Bld) 9.2 % [facility] Neutrophils (Bld) [#/Vol] 13.63 10*3/uL High 1.57 - 6.19 K/uL [facility] Nucleated RBC/100 WBC (Bld) [Ratio] 0.0 % [facility] Platelet mean volume (Bld) [Entitic vol] 10.3 fL 8.7 - 12.3 fL [facility] Platelets (Bld) [#/Vol] 250 10*3/uL 146 - 337 K/uL [facility] RBC (Bld) [#/Vol] 4.08 10*6/uL Low [facility] Segmented neutrophils/100 WBC (Bld) 83.2 % [facility] WBC (Bld) [#/Vol] 16.38 10*3/uL High 3.73 - 10 .10 K/uL [facility] No Panel Informationon 06-06 eGFR, CKD-EPI, Male 82 - PINF [facility] Comment on above: Reported eGFR is bas ed on the CKD-EPI 2020 equation using creatinine, age, and sex. Interpretation and review of laboratory results Normal [facility] Interpretation and review of laboratory results Abnormal [facility] Interpretation and review of laboratory results Abnormal [facility] Portable XR Chest Viewson Radiology Study observation (narrative) [facility] Progress Noteson 04-20-2021 [employer] Authentication Interface Message Text I evaluated Markus Nava during this telemedicine visit. I reviewed the resident's documentation. I agree with the resident's decision making as documented in the resident's note. Normal [facility] [employer] Authentication Interface Message Text Normal [facility] Care Plan Noteon 04-05-2021 [employer] Authentication Interface Message Text Normal [facility] GLUCOSE, FINGERSTICK-IN OFFI CEon 04-05-2021 Glucose [Mass/Vol] 91 mg/dL Normal 80-116 [facility] Comment on above: Performed By: #### 8 2948 ####NURSING GLUCOSE [id number] [place], [address] PROTHROMBIN TIME AND INRon 1 06-05-2020 INR Coag (PPP) [Relative time] 3.52 {INR} High 0.90-1.10 [facility] Comment on above: Performed By: #### P T ####[facility] [id number] [place], PT Coag (PPP) [Time] 38.6 s High 9.7-12.9 [facility] Comment on above: Performed By: #### P T ####[facility] PATH[facility] [id number] [place], Progress Noteson 04-05-2021 [employer] Authentication Interface Message Text Normal [facility] [employer] Authentication Interface Message Text Normal [facility] [employer] Authentication Interface Message Text Normal [facility] Telephone Encounteron 2020 [employer] Authentication Interface Message Text Normal [facility] Care Plan Noteon 04-04-2021 [employer] Authentication Interface Message Text Normal [facility] Consultson 04-04-2021 [employer] Authentication Interface Message Text Normal [facility] [employer] Authentication Interface Message Text Normal [facility] [employer] Authentication Interface Message Text Normal [facility] [employer] Authentication Interface Message Text Normal [facility] GLUCOSE, FINGERSTICK-IN OFFI CEon 04-04-2021 Glucose [Mass/Vol] 97 mg/dL Normal 80-116 [facility] Comment on above: Performed By: #### 8 2948 ####NURSING GLUCOSE [id number] [place], [address] Glucose [Mass/Vol] 100 mg/dL Normal 80-116 [facility] Comment on above: Performed By: #### 8 2948 ####NURSING GLUCOSE [id number] [place], [address] Glucose [Mass/Vol] 109 mg/dL Normal 80-116 [facility] Comment on above: Performed By: #### 8 2948 ####NURSING GLUCOSE [id number] [place], [address] Glucose [Mass/Vol] 97 mg/dL Normal 80-116 [facility] Comment on above: Performed By: #### 8 2948 ####NURSING GLUCOSE [id number] [place], [address] PROTHROMBIN TIME AND INRon 1 06-04-2020 INR Coag (PPP) [Relative time] 3.89 {INR} High 0.90-1.10 [facility] Comment on above: Performed By: #### P T ####[facility] [id number] [place], PT Coag (PPP) [Time] 42.6 s High 9.7-12.9 [facility] Comment on above: Performed By: #### P T ####[facility] PATH[facility] [id number] [place] [address], Progress Noteson 04-04-2021 [employer] Authentication Interface Message Text Normal [facility] Care Plan Noteon 04-03-2021 [employer] Authentication Interface Message Text Normal [facility] GLUCOSE, FINGERSTICK-IN OFFI CEon 04-03-2021 Glucose [Mass/Vol] 104 mg/dL Normal 80-116 [facility] Comment on above: Performed By: #### 8 2948 ####NURSING GLUCOSE [id number] [place], [address] Glucose [Mass/Vol] 102 mg/dL Normal 80-116 [facility] Comment on above: Performed By: #### 8 2948 ####NURSING GLUCOSE KIDNXHJ6188 [place], [address] Glucose [Mass/Vol] 97 mg/dL Normal 80-116 [facility] Comment on above: Performed By: #### 8 2948 ####NURSING GLUCOSE [id number] [place], [address] PROTHROMBIN TIME AND INRon 1 INR Coag (PPP) [Relative time] 3.18 {INR} High 0.90-1.10 [facility] Comment on above: Performed By: #### P T ####S PATHOLOGY [id number] [place], [place] Coag (PPP) [Time] 34.9 s High 9.7-12.9 [facility] Comment on above: Performed By: #### P T ####S PATHOLOGY [id number] [place], Care Plan Noteon 04-02-2021 [employer] Authentication Interface Message Text Normal [facility] Consultson 04-02-2021 [employer] Authentication Interface Message Text Normal [facility] GLUCOSE, FINGERSTICK-IN OFFI CEon 04-02-2021 Glucose [Mass/Vol] 121 mg/dL High 80-116 [facility] Comment on above: Performed By: #### 8 2948 ####NURSING GLUCOSE [id number] [place] [address], [address] Glucose [Mass/Vol] 99 mg/dL Normal 80-116 [facility] Comment on above: Result Comment: No A ction Performed By: #### 8 2948 ####NURSING GLUCOSE [id number] [place], [address] Glucose [Mass/Vol] 104 mg/dL Normal 80-116 [facility] Comment on above: Performed By: #### 8 2948 ####NURSING GLUCOSE [id number] [place], [address] Glucose [Mass/Vol] 109 mg/dL Normal 80-116 [facility] Comment on above: Performed By: #### 8 2948 ####NURSING GLUCOSE [id number] [place], [address] PROTHROMBIN TIME AND INRon 1 INR Coag (PPP) [Relative time] 2.75 {INR} High 0.90-1.10 [facility] Comment on above: Performed By: #### P T ####S PATHOLOGY [id number] [place], PT Coag (PPP) [Time] 30.8 s High 9.7-12.9 [facility] Comment on above: Performed By: #### P T ####S PATHOLOGY [id number] [place], Progress Noteson 04-02-2021 [employer] Authentication Interface Message Text Normal [facility] Care Plan Noteon 04-01-2021 [employer] Authentication Interface Message Text Normal [facility] GLUCOSE, FINGERSTICK-IN OFFI CEon 04-01-2021 Glucose [Mass/Vol] 117 mg/dL High 80-116 [facility] Comment on above: Result Comment: Foll ow Protocol Performed By: #### 8 2948 ####NURSING GLUCOSE [id number] [place], [address] Glucose [Mass/Vol] 116 mg/dL Normal 80-116 [facility] Comment on above: Performed By: #### 8 2948 ####NURSING GLUCOSE [id number] [place], [address] Glucose [Mass/Vol] 99 mg/dL Normal 80-116 [facility] Comment on above: Result Comment: Foll ow Protocol Performed By: #### 8 2948 ####NURSING GLUCOSE [id number] [place], [address] Glucose [Mass/Vol] 106 mg/dL Normal 80-116 [facility] Comment on above: Performed By: #### 8 2948 ####NURSING GLUCOSE NJSALYM9389 [place], [address] PROTHROMBIN TIME AND INRon 1 INR Coag (PPP) [Relative time] 2.37 {INR} High 0.90-1.10 [facility] Comment on above: Performed By: #### P T ####S PATHOLOGY [id number] [place], [place] Coag (PPP) [Time] 26.5 s High 9.7-12.9 [facility] Comment on above: Performed By: #### P T ####S PATHOLOGY HKSQFMWLDE[address] [place] [address], Progress Noteson 04-01-2021 [employer] Authentication Interface Message Text Normal [facility] [employer] Authentication Interface Message Text Normal [facility] Treatment Plan Noteon 2020 [employer] Authentication Interface Message Text Normal [facility] BASIC METABOLIC PANELon 10-2 8-2021 Anion gap [Moles/Vol] 12 mmol/L Normal 10-20 [facility] Comment on above: Performed By: #### C H8 ####S PATHOLOGY COBZHRYSEY1072 [place], Calcium [Mass/Vol] 8.4 mg/dL Normal 8.4-10.4 [facility] Comment on above: Performed By: #### C H8 ####S PATHOLOGY [id number] [place], Chloride [Moles/Vol] 101 mmol/L Normal 97-111 [facility] Comment on above: Performed By: #### C H8 ####S PATHOLOGY [id number] [place], CO2 [Moles/Vol] 25 mmol/L Normal 21-30 [facility] Comment on above: Performed By: #### C H8 ####S PATHOLOGY VOOPYVRFJF1055 [place], Creatinine [Mass/Vol] 1.04 mg/dL Normal 0.80-1.30 [facility] Comment on above: Performed By: #### C H8 ####S PATHOLOGY [id number] [place], ESTIMATED GFR (CKD-EPI) 70 mL/min/1.73sqm Normal >=60 [facility] Comment on above: Performed By: #### C H8 ####S PATHOLOGY CODDKWNNWL8725 [place], Glucose [Mass/Vol] 88 mg/dL Normal 80-116 [facility] Comment on above: Performed By: #### C H8 ####S PATHOLOGY [id number] [place], Potassium [Moles/Vol] 4.8 mmol/L Normal 3.3-5.3 [facility] Comment on above: Performed By: #### C H8 ####S PATHOLOGY [id number] [place], Sodium [Moles/Vol] 133 mmol/L Low 135-148 [facility] Comment on above: Performed By: #### C H8 ####S PATHOLOGY FINIXBOCUM9471 [place], Urea nitrogen [Mass/Vol] 22 mg/dL Normal 8-22 [facility] Comment on above: Performed By: #### C H8 ####[facility] PATHOLOGY [id number] [place], CBC WITH DIFFERENTIALon 03-05 Basophils (Bld) [#/Vol] 0.06 10*3/uL Normal 0.00-0.20 [facility] Comment on above: Performed By: #### C BCDSAT ####[facility] PATHOLOGY [id number] [place], Basophils/100 WBC (Bld) 0.7 % Normal <=1.9 [facility] Comment on above: Performed By: #### C BCDSAT ####[facility] PATHOLOGY [id number] [place] [address], Eosinophils (Bld) [#/Vol] 0.41 10*3/uL Normal 0.00-0.70 [facility] Comment on above: Performed By: #### Deborah BCDSAT ####[facility] PATHOLOGY ILOEDXMIOT[address] [place] [address], Eosinophils/100 WBC (Bld) 4.7 % High 0.1-4.0 [facility] Comment on above: Performed By: #### C BCDSAT ####[facility] PATHOLOGY [id number] [place], Erythrocyte distribution width (RBC) [Ratio] 15.7 % High 11.5-14.5 [facility] Comment on above: Performed By: #### C BCDSAT ####S PATHOLOGY TVQNALSPIC9031 [place], Hematocrit (Bld) [Volume fraction] 28.9 % Low 41.0-53.0 [facility] Comment on above: Performed By: #### C BCDSAT ####[facility] PATHOLOGY [id number] [place], Hemoglobin (Bld) [Mass/Vol] 9.6 g/dL Low 13.9-16.3 [facility] Comment on above: Performed By: #### Deborah GAMEZAT ####[facility] PATHOLOGY [id number] [place], Lymphocytes (Bld) [#/Vol] 1.14 10*3/uL Normal 1.00-4.80 [facility] Comment on above: Performed By: #### Deborah GAMEZAT ####[facility] PATHOLOGY [id number] [place] [address], Lymphocytes/100 WBC (Bld) 12.8 % Low 24.0-44.0 [facility] Comment on above: Performed By: #### Deborah GAMEZAT ####[facility] PATHOLOGY DGLCPGABRK[address] [place] [address], MCH (RBC) [Entitic mass] 31.5 pg Normal 26.0-34.0 [facility] Comment on above: Performed By: #### Deboarh GAMEZAT ####[facility] PATHOLOGY UBROIXFVHG[address] [place] [address], MCHC (RBC) [Mass/Vol] 33.3 g/dL Normal 32.0-35.9 [facility] Comment on above: Performed By: #### Deborah GAMEZAT ####[facility] PATHOLOGY QIKIFJEENT[address] [place] [address], MCV (RBC) [Entitic vol] 95 fL Normal 80-100 [facility] Comment on above: Performed By: #### Deborah GAMEZAT ####[facility] PATHOLOGY [id number] [place] [address], MONOCYTE DISTRIBUTION WIDTH Normal [facility] Comment on above: Performed By: #### Deborah GAMEZAT ####[facility] PATHOLOGY [id number] [place], Monocytes (Bld) [#/Vol] 0.95 10*3/uL Normal 0.20-1.00 [facility] Comment on above: Performed By: #### Deborah GAMEZAT ####[facility] PATHOLOGY [id number] [place] [address], Monocytes/100 WBC (Bld) 10.7 % Normal 2.0-11.0 [facility] Comment on above: Performed By: #### Deborah GAMEZAT ####[facility] PATHOLOGY [id number] [place], Neutrophils (Bld) [#/Vol] 6.32 10*3/uL Normal 1.50-8.00 [facility] Comment on above: Performed By: #### Deborah GAMEZAT ####[facility] PATHOLOGY [id number] [place], Neutrophils/100 WBC (Bld) 71.2 % Normal 31.0-76.0 [facility] Comment on above: Performed By: #### Deborah GAMEZAT ####[facility] PATHOLOGY [id number] [place], Platelet mean volume (Bld) [Entitic vol] 9.5 fL Normal 7.5-11.2 [facility] Comment on above: Performed By: #### Deborah GAMEZAT ####[facility] PATHOLOGY [id number] [place], Platelets (Bld) [#/Vol] 346 10*3/uL Normal 150-400 [facility] Comment on above: Performed By: #### Deborah GAMEZAT ####[facility] PATHOLOGY [id number] [place], RBC (Bld) [#/Vol] 3.06 10*6/uL Low 4.50-5.90 [facility] Comment on above: Performed By: #### Deborah GAMEZAT ####[facility] PATHOLOGY [id number] [place], WBC (Bld) [#/Vol] 8.9 10*3/uL Normal 4.5-11.5 [facility] Comment on above: Performed By: #### Deborah GAMEZAT ####S PATHOLOGY [id number] [place], Care Plan Noteon 03-31-2021 [employer] Authentication Interface Message Text Normal [facility] Consultson 03-31-2021 [employer] Authentication Interface Message Text Normal [facility] [employer] Authentication Interface Message Text Normal [facility] GLUCOSE, FINGERSTICK-IN OFFI CEon 03-31-2021 Glucose [Mass/Vol] 133 mg/dL High 80-116 [facility] Comment on above: Performed By: #### 8 2948 ####NURSING GLUCOSE [id number] [place], [address] Glucose [Mass/Vol] 102 mg/dL Normal 80-116 [facility] Comment on above: Performed By: #### 8 2948 ####NURSING GLUCOSE UQVUOCQ2485 [place], [address] Glucose [Mass/Vol] 116 mg/dL Normal 80-116 [facility] Comment on above: Performed By: #### 8 2948 ####NURSING GLUCOSE [id number] [place], [address] Glucose [Mass/Vol] 122 mg/dL High 80-116 [facility] Comment on above: Performed By: #### 8 2948 ####NURSING GLUCOSE [id number] [place], [address] HEMOGLOBIN A1Con 03-31-2021 Glucose [Mass/Vol] 134 mg/dL Normal [facility] Comment on above: Order Comment: HbA1c of 5.7-6.4% have increased risk for diabetes and CV(Source :ADA 2014 Standard of Medical Care in Diabetes) Performed By: #### H B A1C ####[facility] PATH[facility] PGAWQFMNPG[address] [place] [address], HbA1c (Bld) [Mass fraction] 6.3 % High 4.0-5.6 [facility] Comment on above: Order Comment: HbA1c of 5.7-6.4% have increased risk for diabetes and CV(Source :ADA 2014 Standard of Medical Care in Diabetes) Performed By: #### H B A1C ####[facility] PATH[facility] VZETWPOKYX[address] [place] [address], PROTHROMBIN TIME AND INRon 1 INR Coag (PPP) [Relative time] 2.01 {INR} High 0.90-1.10 [facility] Comment on above: Performed By: #### P T ####[facility] PATH[facility] [id number] [place], [place] Coag (PPP) [Time] 22.6 s High 9.7-12.9 [facility] Comment on above: Performed By: #### P T ####S PATHOLOGY [id number] [place], Progress Noteson 03-31-2021 [employer] Authentication Interface Message Text Normal [facility] [employer] Authentication Interface Message Text Normal [facility] [employer] Authentication Interface Message Text Normal [facility] [employer] Authentication Interface Message Text Normal [facility] VITAMIN D, 25-HYDROXYon -2 VITD25 24.2 ng/mL Low 30.0-100.0 [facility] Comment on above: Performed By: #### V ITD25 ####[facility] PATHOLOGY [id number] [place], Care Plan Noteon 03-30-2021 [employer] Authentication Interface Message Text Normal [facility] Consultson 03-30-2021 [employer] Authentication Interface Message Text Consult request received. Patient will be seen for rehab psych consult, ideally on 03/30/21. Shantal Sims, PhD Normal [facility] [employer] Authentication Interface Message Text Normal [facility] [employer] Authentication Interface Message Text Normal [facility] [employer] Authentication Interface Message Text Normal [facility] GLUCOSE, FINGERSTICK-IN OFFI CEon 03-30-2021 Glucose [Mass/Vol] 116 mg/dL Normal 80-116 [facility] Comment on above: Performed By: #### 8 2948 ####NURSING GLUCOSE [id number] [place], [address] Glucose [Mass/Vol] 129 mg/dL High 80-116 [facility] Comment on above: Performed By: #### 8 2948 ####NURSING GLUCOSE [id number] [place], [address] Glucose [Mass/Vol] 108 mg/dL Normal 80-116 [facility] Comment on above: Result Comment: Foll ow Protocol Performed By: #### 8 2947 ####NURSING GLUCOSE [id number] [place], [address] Glucose [Mass/Vol] 112 mg/dL Normal 80-116 [facility] Comment on above: Result Comment: Salvador jovel RN, APN, MD Performed By: #### 8 2948 ####NURSING GLUCOSE VDFKIVI2275 [place], [address] Glucose [Mass/Vol] 116 mg/dL Normal 80-116 [facility] Comment on above: Performed By: #### 8 2948 ####NURSING GLUCOSE [id number] [place], [address] PROTHROMBIN TIME AND INRon 1 INR Coag (PPP) [Relative time] 2.05 {INR} High 0.90-1.10 [facility] Comment on above: Performed By: #### P T ####[facility] [id number] [place], [place] Coag (PPP) [Time] 23.0 s High 9.7-12.9 [facility] Comment on above: Performed By: #### P T ####[facility] PATH[facility] [id number] [place], Progress Noteson 03-30-2021 [employer] Authentication Interface Message Text Normal [facility] [employer] Authentication Interface Message Text Normal [facility] [employer] General Authentication Interface Message Text Normal [facility] Care Plan Noteon 03-29-2021 [employer] General Authentication Interface Message Text Normal [facility] Consultson 03-29-2021 [employer] Authentication Interface Message Text Normal [facility] [employer] Authentication Interface Message Text Normal [facility] [employer] Authentication Interface Message Text Normal [facility] Discharge Planning Noteon [employer] Authentication Interface Message Text Normal [facility] [employer] Authentication Interface Message Text Normal [facility] [place] MODIFIED BARIUM SWALLOWon 03-29-2021 [place] MODIFIED BARIUM SWALLOW Normal [facility] GLUCOSE, FINGERSTICK-IN OFFI CEon 03-29-2021 Glucose [Mass/Vol] 128 mg/dL High 80-116 [facility] Comment on above: Performed By: #### 8 2948 ####NURSING GLUCOSE [id number] [place], [address] Glucose [Mass/Vol] 97 mg/dL Normal 80-116 [facility] Comment on above: Performed By: #### 8 2948 ####NURSING GLUCOSE GNLIPTI3205 [place], [address] Glucose [Mass/Vol] 134 mg/dL High 80-116 [facility] Comment on above: Performed By: #### 8 2948 ####NURSING GLUCOSE INVNNPR9458 [place], [address] Glucose [Mass/Vol] 135 mg/dL High 80-116 [facility] Comment on above: Performed By: #### 8 2948 ####NURSING GLUCOSE [id number] [place], [address] H AND Josue 03-29-2021 [employer] Authentication Interface Message Text Normal [facility] Progress Noteson 03-29-2021 [employer] Authentication Interface Message Text Normal [facility] [employer] Authentication Interface Message Text Normal [facility] [employer] Authentication Interface Message Text Normal [facility] [employer] Authentication Interface Message Text Normal [facility] [employer] Authentication Interface Message Text This RN and CCP unable to obtain AM labs on PT. PT extremely difficult stick and will not have anyone else try. This RN notified Dr. Jolly and will notify day shift to have IV team attempt. Normal [facility] BASIC METABOLIC PANELon 03-05 Anion gap [Moles/Vol] 13 mmol/L Normal 10-20 [facility] Comment on above: Performed By: #### C H8, MG ####[facility] [id number] [place], Calcium [Mass/Vol] 8.2 mg/dL Low 8.4-10.4 [facility] Comment on above: Performed By: #### C H8, MG ####[facility] [id number] [place], Chloride [Moles/Vol] 105 mmol/L Normal 97-111 [facility] Comment on above: Performed By: #### C H8, MG ####[facility] [id number] [place], CO2 [Moles/Vol] 21 mmol/L Normal 21-30 [facility] Comment on above: Performed By: #### C H8, MG ####[facility] [id number] [place], Creatinine [Mass/Vol] 1.09 mg/dL Normal 0.80-1.30 [facility] Comment on above: Performed By: #### C H8, MG ####[facility] [id number] [place], ESTIMATED GFR (CKD-EPI) 66 mL/min/1.73sqm Normal >=60 [facility] Comment on above: Performed By: #### C H8, MG ####[facility] [id number] [place], Glucose [Mass/Vol] 120 mg/dL High 80-116 [facility] Comment on above: Performed By: #### C H8, MG ####[facility] [id number] [place], Potassium [Moles/Vol] 4.8 mmol/L Normal 3.3-5.3 [facility] Comment on above: Result Comment: Hemo lysis present Performed By: #### C H8, MG ####[facility] [id number] [place], Sodium [Moles/Vol] 134 mmol/L Low 135-148 [facility] Comment on above: Performed By: #### C H8, MG ####[facility] PATH[facility] [id number] [place], Urea nitrogen [Mass/Vol] 18 mg/dL Normal 8-22 [facility] Comment on above: Performed By: #### C H8, MG ####[facility] PATH[facility] [id number] [place], Care Plan Noteon 03-28-2021 [employer] Authentication Interface Message Text Normal [facility] Consultson 03-28-2021 [employer] Authentication Interface Message Text Normal [facility] [employer] Authentication Interface Message Text Normal [facility] [employer] Authentication Interface Message Text Normal [facility] GLUCOSE, FINGERSTICK-IN OFFI CEon 03-28-2021 Glucose [Mass/Vol] 100 mg/dL Normal 80-116 [facility] Comment on above: Performed By: #### 8 2948 ####NURSING GLUCOSE [id number] [place], [address] Glucose [Mass/Vol] 89 mg/dL Normal 80-116 [facility] Comment on above: Performed By: #### 8 2948 ####NURSING GLUCOSE XCDPGVL[address] [place] [address], [address] Glucose [Mass/Vol] 163 mg/dL High 80-116 [facility] Comment on above: Performed By: #### 8 2948 ####NURSING GLUCOSE [id number] [place] [address], [address] MAGNESIUMon 03-28-2021 Magnesium [Mass/Vol] 2.2 mg/dL Normal 1.6-2.8 [facility] Comment on above: Result Comment: Hemo lysis present Performed By: #### C H8, MG ####[facility] GIOLSUPTOO[address] [place] [address], PROTHROMBIN TIME AND INRon 1 INR Coag (PPP) [Relative time] 1.53 {INR} High 0.90-1.10 [facility] Comment on above: Performed By: #### P T ####[facility] PATH[facility] [id number] [place] [address], PT Coag (PPP) [Time] 17.2 s High 9.7-12.9 [facility] Comment on above: Performed By: #### P T ####[facility] PATH[facility] [id number] [place] [address], Progress Noteson 03-28-2021 [employer] Authentication Interface Message Text Dr. Munoz notified unable to collect ordered CBC multiple staff attempts to obtain unsuccessful. PICC positional not providing adequate blood return aware. Will continue to monitor. Normal [facility] [employer] Authentication Interface Message Text Normal [facility] BASIC METABOLIC PANELon 10-2 Anion gap [Moles/Vol] 15 mmol/L Normal 10-20 [facility] Comment on above: Performed By: #### C H8, HEPATIC, MG ####[facility] PATHOLOG[facility] [id number] [place], Calcium [Mass/Vol] 8.3 mg/dL Low 8.4-10.4 [facility] Comment on above: Performed By: #### Deborah Jeronimo, HEPATIC, MG ####S PATHOLOGY [id number] [place], Chloride [Moles/Vol] 101 mmol/L Normal 97-111 [facility] Comment on above: Performed By: #### Deborah Jeronimo, HEPATIC, MG ####S PATHOLOGY [id number] [place], CO2 [Moles/Vol] 25 mmol/L Normal 21-30 [facility] Comment on above: Performed By: #### Deborah Jeronimo, HEPATIC, MG ####S PATHOLOGY [id number] [place], Creatinine [Mass/Vol] 1.20 mg/dL Normal 0.80-1.30 [facility] Comment on above: Performed By: #### Deborah Jeronimo, HEPATIC, MG ####[facility] PATHOLOGY [id number] [place], ESTIMATED GFR (CKD-EPI) 59 mL/min/1.73sqm Low >=60 [facility] Comment on above: Performed By: #### Deborah Jeronimo, HEPATIC, MG ####S PATHOLOGY NVENSAPYAC2504 [place], Glucose [Mass/Vol] 128 mg/dL High 80-116 [facility] Comment on above: Performed By: #### Deborah Jeronimo, HEPATIC, MG ####S PATHOLOGY [id number] [place], Potassium [Moles/Vol] 4.2 mmol/L Normal 3.3-5.3 [facility] Comment on above: Performed By: #### Deborah Jeronimo, HEPATIC, MG ####S PATHOLOGY [id number] [place], Sodium [Moles/Vol] 137 mmol/L Normal 135-148 [facility] Comment on above: Performed By: #### Deborah Jeronimo, HEPATIC, MG ####[facility] PATHOLOGY [id number] [place], Urea nitrogen [Mass/Vol] 23 mg/dL High 8-22 [facility] Comment on above: Performed By: #### Deborah Jeronimo, HEPATIC, MG ####[facility] PATHOLOGY [id number] [place], CBC WITH DIFFERENTIALon 03-05 Basophils (Bld) [#/Vol] 0.10 10*3/uL Normal 0.00-0.20 [facility] Comment on above: Performed By: #### C BCDSAT ####[facility] PATHOLOGY [id number] [place], Basophils/100 WBC (Bld) 1.1 % Normal <=1.9 [facility] Comment on above: Performed By: #### C BCDSAT ####[facility] PATHOLOGY [id number] [place], Eosinophils (Bld) [#/Vol] 0.28 10*3/uL Normal 0.00-0.70 [facility] Comment on above: Performed By: #### C BCDSAT ####[facility] PATHOLOGY [id number] [place], Eosinophils/100 WBC (Bld) 2.9 % Normal 0.1-4.0 [facility] Comment on above: Performed By: #### C BCDSAT ####[facility] PATHOLOGY [id number] [place], Erythrocyte distribution width (RBC) [Ratio] 14.2 % Normal 11.5-14.5 [facility] Comment on above: Performed By: #### C BCDSAT ####[facility] PATHOLOGY [id number] [place], Hematocrit (Bld) [Volume fraction] 25.6 % Low 41.0-53.0 [facility] Comment on above: Performed By: #### C BCDSAT ####[facility] PATHOLOGY [id number] [place], Hemoglobin (Bld) [Mass/Vol] 8.6 g/dL Low 13.9-16.3 [facility] Comment on above: Performed By: #### C HUMERADSAT ####[facility] PATHOLOGY [id number] [place], Lymphocytes (Bld) [#/Vol] 0.92 10*3/uL Low 1.00-4.80 [facility] Comment on above: Performed By: #### C VERAAT ####[facility] PATHOLOGY FAVERFLWAT[address] [place] [address], Lymphocytes/100 WBC (Bld) 9.2 % Low 24.0-44.0 [facility] Comment on above: Performed By: #### Deborah GAMEZAT ####[facility] PATHOLOGY [id number] [place], MCH (RBC) [Entitic mass] 31.1 pg Normal 26.0-34.0 The [facility] Comment on above: Performed By: #### Deborah GAMEZAT ####[facility] PATHOLOGY [id number] [place] [address], MCHC (RBC) [Mass/Vol] 33.5 g/dL Normal 32.0-35.9 [facility] Comment on above: Performed By: #### Deborah GAMEZAT ####[facility] PATHOLOGY OUMWFLPKSJ[address] [place] [address], MCV (RBC) [Entitic vol] 93 fL Normal 80-100 [facility] Comment on above: Performed By: #### Deborah GAMEZAT ####[facility] PATHOLOGY [id number] [place] [address], MONOCYTE DISTRIBUTION WIDTH Normal The [facility] Comment on above: Performed By: #### Deborah GAMEZAT ####[facility] PATHOLOGY [id number] [place], Monocytes (Bld) [#/Vol] 1.14 10*3/uL High 0.20-1.00 [facility] Comment on above: Performed By: #### Deborah GAMEZAT ####[facility] PATHOLOGY [id number] [place] [address], Monocytes/100 WBC (Bld) 11.4 % High 2.0-11.0 [facility] Comment on above: Performed By: #### C VERAAT ####[facility] PATHOLOGY [id number] [place], Neutrophils (Bld) [#/Vol] 7.50 10*3/uL Normal 1.50-8.00 [facility] Comment on above: Performed By: #### C VERAAT ####[facility] PATHOLOGY [id number] [place], Neutrophils/100 WBC (Bld) 75.4 % Normal 31.0-76.0 [facility] Comment on above: Performed By: #### C VERAAT ####[facility] PATHOLOGY [id number] [place], Platelet mean volume (Bld) [Entitic vol] 9.3 fL Normal 7.5-11.2 [facility] Comment on above: Performed By: #### Deborah GAMEZAT ####[facility] PATHOLOGY [id number] [place] [address], Platelets (Bld) [#/Vol] 292 10*3/uL Normal 150-400 [facility] Comment on above: Performed By: #### C VERAAT ####S PATHOLOGY [id number] [place], RBC (Bld) [#/Vol] 2.75 10*6/uL Low 4.50-5.90 [facility] Comment on above: Performed By: #### Deborah GAMEZAT ####[facility] PATHOLOGY [id number] [place], WBC (Bld) [#/Vol] 9.9 10*3/uL Normal 4.5-11.5 [facility] Comment on above: Performed By: #### C VERAAT ####[facility] PATHOLOGY [id number] [place], GLUCOSE, FINGERSTICK-IN OFFI CEon 03-27-2021 Glucose [Mass/Vol] 131 mg/dL High 80-116 [facility] Comment on above: Performed By: #### 8 2948 ####NURSING GLUCOSE [id number] [place], [address] Glucose [Mass/Vol] 138 mg/dL High 80-116 [facility] Comment on above: Performed By: #### 8 2948 ####NURSING GLUCOSE [id number] [place], [address] HEPATIC FUNCTION PANELon Albumin [Mass/Vol] 2.7 g/dL Low 3.4-5.1 [facility] Comment on above: Performed By: #### Deborah Jeronimo, HEPATIC, MG ####[facility] PATH[facility] [id number] [place], ALK 102 IU/L Normal 40-200 [facility] Comment on above: Performed By: #### Deborah Jeronimo, HEPATIC, MG ####[facility] PATH[facility] [id number] [place], ALT [Catalytic activity/Vol] 51 U/L High 7-40 [facility] Comment on above: Performed By: #### Deborah Jeronimo, HEPATIC, MG ####[facility] PATH[facility] [id number] [place], AST [Catalytic activity/Vol] 44 U/L High 7-40 [facility] Comment on above: Performed By: #### Deborah Jeronimo, HEPATIC, MG ####[facility] PATH[facility] [id number] [place], Bilirubin [Mass/Vol] 1.2 mg/dL Normal 0.1-1.5 [facility] Comment on above: Performed By: #### Deborah Jeronimo, HEPATIC, MG ####[facility] PATH[facility] [id number] [place], Bilirubin.direct [Mass/Vol] 0.40 mg/dL High 0.10-0.30 [facility] Comment on above: Performed By: #### Deborah Jeronimo, HEPATIC, MG ####[facility] PATH[facility] [id number] [place], Protein [Mass/Vol] 6.3 g/dL Normal 5.7-8.1 [facility] Comment on above: Performed By: #### Deborah Jeronimo, HEPATIC, MG ####S PATHOLOGY [id number] [place], MAGNESIUMon 03-27-2021 Magnesium [Mass/Vol] 2.4 mg/dL Normal 1.6-2.8 [facility] Comment on above: Performed By: #### C H8, HEPATIC, MG ####[facility] PATHOLOGY [id number] [place], PROTHROMBIN TIME AND INRon 1 INR Coag (PPP) [Relative time] 1.47 {INR} High 0.90-1.10 [facility] Comment on above: Performed By: #### P T ####[facility] PATHOLOGY [id number] [place], PT Coag (PPP) [Time] 16.6 s High 9.7-12.9 [facility] Comment on above: Performed By: #### P T ####[facility] PATHOLOGY [id number] [place] [address], Progress Noteson 03-27-2021 [employer] Authentication Interface Message Text Normal [facility] CBC WITH DIFFERENTIALon 03-05 Basophils (Bld) [#/Vol] 0.09 10*3/uL Normal 0.00-0.20 [facility] Comment on above: Performed By: #### C BCDSAT ####[facility] PATHOLOGY [id number] [place], Basophils/100 WBC (Bld) 0.7 % Normal <=1.9 [facility] Comment on above: Performed By: #### C BCDSAT ####S PATHOLOGY [id number] [place], Eosinophils (Bld) [#/Vol] 0.25 10*3/uL Normal 0.00-0.70 [facility] Comment on above: Performed By: #### C BCDSAT ####S PATHOLOGY [id number] [place], Eosinophils/100 WBC (Bld) 1.9 % Normal 0.1-4.0 [facility] Comment on above: Performed By: #### C BCDSAT ####[facility] PATHOLOGY [id number] [place], Erythrocyte distribution width (RBC) [Ratio] 14.4 % Normal 11.5-14.5 [facility] Comment on above: Performed By: #### C BCDSAT ####[facility] PATHOLOGY [id number] [place], Hematocrit (Bld) [Volume fraction] 25.3 % Low 41.0-53.0 [facility] Comment on above: Performed By: #### C BCDSAT ####[facility] PATHOLOGY [id number] [place], Hemoglobin (Bld) [Mass/Vol] 8.4 g/dL Low 13.9-16.3 [facility] Comment on above: Performed By: #### C BCDSAT ####[facility] PATHOLOGY [id number] [place] [address], Lymphocytes (Bld) [#/Vol] 0.98 10*3/uL Low 1.00-4.80 [facility] Comment on above: Performed By: #### C BCDSAT ####[facility] PATHOLOGY [id number] [place] [address], Lymphocytes/100 WBC (Bld) 7.6 % Low 24.0-44.0 [facility] Comment on above: Performed By: #### C BCDSAT ####[facility] PATHOLOG[facility] [id number] [place], MCH (RBC) [Entitic mass] 31.1 pg Normal 26.0-34.0 [facility] Comment on above: Performed By: #### C BCDSAT ####[facility] PATHOLOG[facility] [id number] [place], MCHC (RBC) [Mass/Vol] 33.3 g/dL Normal 32.0-35.9 [facility] Comment on above: Performed By: #### C BCDSAT ####[facility] PATHOLOGY [id number] [place], MCV (RBC) [Entitic vol] 93 fL Normal 80-100 [facility] Comment on above: Performed By: #### C BCDSAT ####[facility] PATHOLOGY [id number] [place], MONOCYTE DISTRIBUTION WIDTH Normal [facility] Comment on above: Performed By: #### C BCDSAT ####[facility] PATHOLOGY [id number] [place], Monocytes (Bld) [#/Vol] 1.53 10*3/uL High 0.20-1.00 [facility] Comment on above: Performed By: #### C BCDSAT ####[facility] PATHOLOGY [id number] [place], Monocytes/100 WBC (Bld) 11.9 % High 2.0-11.0 [facility] Comment on above: Performed By: #### C BCDSAT ####[facility] PATHOLOGY [id number] [place], Neutrophils (Bld) [#/Vol] 10.02 10*3/uL High 1.50-8.00 [facility] Comment on above: Performed By: #### C BCDSAT ####[facility] PATHOLOGY [id number] [place], Neutrophils/100 WBC (Bld) 77.9 % High 31.0-76.0 [facility] Comment on above: Performed By: #### C BCDSAT ####[facility] PATHOLOG[facility] [id number] [place], Platelet mean volume (Bld) [Entitic vol] 9.2 fL Normal 7.5-11.2 [facility] Comment on above: Performed By: #### C BCDSAT ####[facility] PATHOLOG[facility] [id number] [place], Platelets (Bld) [#/Vol] 282 10*3/uL Normal 150-400 [facility] Comment on above: Performed By: #### C BCDSAT ####[facility] PATHOLOG[facility] [id number] [place], RBC (Bld) [#/Vol] 2.71 10*6/uL Low 4.50-5.90 [facility] Comment on above: Performed By: #### C HUMERADSAT ####[facility] PATHOLOGY [id number] [place], WBC (Bld) [#/Vol] 12.9 10*3/uL High 4.5-11.5 [facility] Comment on above: Performed By: #### C HUMERADSAT ####[facility] PATHOLOGY [id number] [place], Basophils (Bld) [#/Vol] 0.08 10*3/uL Normal 0.00-0.20 [facility] Comment on above: Performed By: #### C VERAAT ####[facility] PATHOLOGY [id number] [place] [address], Basophils/100 WBC (Bld) 0.6 % Normal <=1.9 [facility] Comment on above: Performed By: #### C VERAAT ####[facility] PATHOLOG[facility] [id number] [place], Eosinophils (Bld) [#/Vol] 0.24 10*3/uL Normal 0.00-0.70 [facility] Comment on above: Performed By: #### Deborah GAMEZAT ####[facility] PATHOLOGY [id number] [place] [address], Eosinophils/100 WBC (Bld) 2.0 % Normal 0.1-4.0 [facility] Comment on above: Performed By: #### C VERAAT ####[facility] PATHOLOG[facility] [id number] [place], Erythrocyte distribution width (RBC) [Ratio] 14.4 % Normal 11.5-14.5 [facility] Comment on above: Performed By: #### C VERAAT ####S PATHOLOGY [id number] [place], Hematocrit (Bld) [Volume fraction] 27.1 % Low 41.0-53.0 [facility] Comment on above: Performed By: #### C BCDSAT ####[facility] PATHOLOG[facility] [id number] [place], Hemoglobin (Bld) [Mass/Vol] 9.0 g/dL Low 13.9-16.3 [facility] Comment on above: Performed By: #### C BCDSAT ####[facility] PATHOLOGY [id number] [place], Lymphocytes (Bld) [#/Vol] 0.92 10*3/uL Low 1.00-4.80 [facility] Comment on above: Performed By: #### C BCDSAT ####[facility] PATHOLOG[facility] [id number] [place], Lymphocytes/100 WBC (Bld) 7.6 % Low 24.0-44.0 [facility] Comment on above: Performed By: #### Deborah BCDSAT ####[facility] PATHOLOGY [id number] [place], MCH (RBC) [Entitic mass] 31.1 pg Normal 26.0-34.0 [facility] Comment on above: Performed By: #### Deborah BCDSAT ####[facility] PATHOLOGY [id number] [place] [address], MCHC (RBC) [Mass/Vol] 33.1 g/dL Normal 32.0-35.9 [facility] Comment on above: Performed By: #### Deborah BCDSAT ####[facility] PATHOLOGY [id number] [place], MCV (RBC) [Entitic vol] 94 fL Normal 80-100 [facility] Comment on above: Performed By: #### Deborah BCDSAT ####[facility] PATHOLOG[facility] [id number] [place], MONOCYTE DISTRIBUTION WIDTH Normal [facility] Comment on above: Performed By: #### Deborah BCDSAT ####[facility] PATHOLOGY [id number] [place], [place], Monocytes (Bld) [#/Vol] 1.16 10*3/uL High 0.20-1.00 [facility] Comment on above: Performed By: #### Deborah BCDSAT ####S PATHOLOGY [id number] [place], [place], Monocytes/100 WBC (Bld) 9.6 % Normal 2.0-11.0 [facility] Comment on above: Performed By: #### C BCDSAT ####S PATHOLOGY [id number] [place], [place], Neutrophils (Bld) [#/Vol] 9.73 10*3/uL High 1.50-8.00 [facility] Comment on above: Performed By: #### C BCDSAT ####[facility] PATHOLOGY [id number] [place], Neutrophils/100 WBC (Bld) 80.3 % High 31.0-76.0 [facility] Comment on above: Performed By: #### C BCDSAT ####[facility] PATHOLOGY [id number] [place], Platelet mean volume (Bld) [Entitic vol] 9.7 fL Normal 7.5-11.2 [facility] Comment on above: Performed By: #### C BCDSAT ####[facility] PATHOLOGY [id number] [place], Platelets (Bld) [#/Vol] 285 10*3/uL Normal 150-400 [facility] Comment on above: Performed By: #### C BCDSAT ####[facility] PATHOLOGY [id number] [place], RBC (Bld) [#/Vol] 2.89 10*6/uL Low 4.50-5.90 [facility] Comment on above: Performed By: #### C BCDSAT ####[facility] PATHOLOGY [id number] [place], WBC (Bld) [#/Vol] 12.1 10*3/uL High 4.5-11.5 [facility] Comment on above: Performed By: #### C BCDSAT ####S PATHOLOGY [id number] [place], [place], Care Plan Noteon 03-26-2021 [employer]ant [employer] Authentication Interface Message Text Normal [facility] GLUCOSE, FINGERSTICK-IN OFFI CEon 03-26-2021 Glucose [Mass/Vol] 166 mg/dL High 80-116 The [facility] Comment on above: Performed By: #### 8 2948 ####NURSING GLUCOSE [id number] [place], [address] Glucose [Mass/Vol] 118 mg/dL High 80-116 [facility] Comment on above: Performed By: #### 8 2948 ####NURSING GLUCOSE [id number] [place], [address] Glucose [Mass/Vol] 138 mg/dL High 80-116 [facility] Comment on above: Performed By: #### 8 2948 ####NURSING GLUCOSE [id number] [place], [address] PROTHROMBIN TIME AND INRon 1 INR Coag (PPP) [Relative time] 1.48 {INR} High 0.90-1.10 [facility] Comment on above: Performed By: #### P T ####[facility] [id number] [place], PT Coag (PPP) [Time] 16.4 s High 9.7-12.9 [facility] Comment on above: Performed By: #### P T ####[facility] PATH[facility]Y [id number] [place] [address], Progress Noteson 03-26-2021 Adjutant [employer] Authentication Interface Message Text Normal [facility] BASIC METABOLIC PANELon 10-2 Anion gap [Moles/Vol] 15 mmol/L Normal 10-20 [facility] Comment on above: Performed By: #### C H8, MG, HEPATIC ####[facility] [id number] [place], Calcium [Mass/Vol] 8.3 mg/dL Low 8.4-10.4 [facility] Comment on above: Performed By: #### C H8, MG, HEPATIC ####[facility] PATH[facility] [id number] [place], Chloride [Moles/Vol] 98 mmol/L Normal 97-111 [facility] Comment on above: Performed By: #### C H8, MG, HEPATIC ####[facility] [id number] [place], CO2 [Moles/Vol] 28 mmol/L Normal 21-30 [facility] Comment on above: Performed By: #### C H8, MG, HEPATIC ####[facility] [id number] [place], Creatinine [Mass/Vol] 1.23 mg/dL Normal 0.80-1.30 [facility] Comment on above: Performed By: #### C H8, MG, HEPATIC ####[facility] [id number] [place], ESTIMATED GFR (CKD-EPI) 57 mL/min/1.73sqm Low >=60 [facility] Comment on above: Performed By: #### C H8, MG, HEPATIC ####[facility] [id number] [place], Glucose [Mass/Vol] 137 mg/dL High 80-116 [facility] Comment on above: Performed By: #### C H8, MG, HEPATIC ####[facility] [id number] [place], Potassium [Moles/Vol] 4.0 mmol/L Normal 3.3-5.3 [facility] Comment on above: Performed By: #### C H8, MG, HEPATIC ####[facility] [id number] [place], Sodium [Moles/Vol] 137 mmol/L Normal 135-148 [facility] Comment on above: Performed By: #### C H8, MG, HEPATIC ####[facility] [id number] [place], Urea nitrogen [Mass/Vol] 32 mg/dL High 8-22 [facility] Comment on above: Performed By: #### C H8, MG, HEPATIC ####[facility] [id number] [place], CBC WITH DIFFERENTIALon 10-2 Basophils (Bld) [#/Vol] 0.05 10*3/uL Normal 0.00-0.20 [facility] Comment on above: Performed By: #### C HUMERADSAT ####[facility] PATHOLOGY [id number] [place] [address], Basophils/100 WBC (Bld) 0.3 % Normal <=1.9 [facility] Comment on above: Performed By: #### C HUMERADSAT ####[facility] PATHOLOGY [id number] [place] [address], Eosinophils (Bld) [#/Vol] 0.35 10*3/uL Normal 0.00-0.70 [facility] Comment on above: Performed By: #### Deborah GAMEZAT ####[facility] PATHOLOGY [id number] [place] [address], Eosinophils/100 WBC (Bld) 2.1 % Normal 0.1-4.0 [facility] Comment on above: Performed By: #### C VERAAT ####[facility] PATHOLOGY [id number] [place] [address], Erythrocyte distribution width (RBC) [Ratio] 14.3 % Normal 11.5-14.5 [facility] Comment on above: Performed By: #### Deborah GAMEZAT ####[facility] PATHOLOGY [id number] [place] [address], Hematocrit (Bld) [Volume fraction] 22.8 % Low 41.0-53.0 [facility] Comment on above: Performed By: #### C VERAAT ####[facility] PATHOLOGY [id number] [place] [address], Hemoglobin (Bld) [Mass/Vol] 7.6 g/dL Low 13.9-16.3 [facility] Comment on above: Performed By: #### C BCMARIAMAAT ####[facility] PATHOLOGY [id number] [place] [address], Lymphocytes (Bld) [#/Vol] 1.36 10*3/uL Normal 1.00-4.80 [facility] Comment on above: Performed By: #### C VERAAT ####[facility] PATHOLOGY [id number] [place], Lymphocytes/100 WBC (Bld) 8.2 % Low 24.0-44.0 [facility] Comment on above: Performed By: #### C BCDSAT ####[facility] PATHOLOGY [id number] [place], MCH (RBC) [Entitic mass] 30.5 pg Normal 26.0-34.0 [facility] Comment on above: Performed By: #### C BCDSAT ####[facility] PATHOLOGY [id number] [place], MCHC (RBC) [Mass/Vol] 33.2 g/dL Normal 32.0-35.9 [facility] Comment on above: Performed By: #### Deborah BCDSAT ####[facility] PATHOLOGY [id number] [place], MCV (RBC) [Entitic vol] 92 fL Normal 80-100 [facility] Comment on above: Performed By: #### C BCDSAT ####[facility] PATHOLOGY [id number] [place], MONOCYTE DISTRIBUTION WIDTH Normal [facility] Comment on above: Performed By: #### Deborah BCDSAT ####[facility] PATHOLOGY [id number] [place], Monocytes (Bld) [#/Vol] 1.80 10*3/uL High 0.20-1.00 [facility] Comment on above: Performed By: #### C BCDSAT ####[facility] PATHOLOGY [id number] [place] [address], Monocytes/100 WBC (Bld) 10.8 % Normal 2.0-11.0 [facility] Comment on above: Performed By: #### Deborah BCDSAT ####[facility] PATHOLOGY [id number] [place], Neutrophils (Bld) [#/Vol] 13.16 10*3/uL High 1.50-8.00 [facility] Comment on above: Performed By: #### C BCMARIAMAAT ####S PATHOLOGY [id number] [place], Neutrophils/100 WBC (Bld) 78.7 % High 31.0-76.0 [facility] Comment on above: Performed By: #### C BCDSAT ####[facility] PATHOLOGY [id number] [place], Platelet mean volume (Bld) [Entitic vol] 9.9 fL Normal 7.5-11.2 [facility] Comment on above: Performed By: #### C BCDSAT ####[facility] PATHOLOGY [id number] [place], Platelets (Bld) [#/Vol] 214 10*3/uL Normal 150-400 [facility] Comment on above: Performed By: #### C BCDSAT ####[facility] PATHOLOGY [id number] [place], RBC (Bld) [#/Vol] 2.49 10*6/uL Low 4.50-5.90 [facility] Comment on above: Performed By: #### C BCDSAT ####[facility] PATHOLOGY [id number] [place], WBC (Bld) [#/Vol] 16.7 10*3/uL High 4.5-11.5 [facility] Comment on above: Performed By: #### C BCDSAT ####[facility] PATHOLOGY [id number] [place], COMPLETE BLOOD COUNTon 03-25 Erythrocyte distribution width (RBC) [Ratio] 14.4 % Normal 11.5-14.5 [facility] Comment on above: Performed By: #### C BC ####[facility] PATHOLOGY [id number] [place], Hematocrit (Bld) [Volume fraction] 23.3 % Low 41.0-53.0 [facility] Comment on above: Performed By: #### C BC ####[facility] PATHOLOGY [id number] [place], Hemoglobin (Bld) [Mass/Vol] 7.8 g/dL Low 13.9-16.3 [facility] Comment on above: Performed By: #### C BC ####[facility] PATHOLOGY [id number] [place], MCH (RBC) [Entitic mass] 31.4 pg Normal 26.0-34.0 [facility] Comment on above: Performed By: #### C BC ####[facility] PATHOLOGY [id number] [place], MCHC (RBC) [Mass/Vol] 33.5 g/dL Normal 32.0-35.9 [facility] Comment on above: Performed By: #### C BC ####[facility] PATHOLOGY [id number] [place], MCV (RBC) [Entitic vol] 94 fL Normal 80-100 [facility] Comment on above: Performed By: #### C BC ####[facility] PATHOLOGY [id number] [place], Platelet mean volume (Bld) [Entitic vol] 9.9 fL Normal 7.5-11.2 [facility] Comment on above: Performed By: #### C BC ####[facility] PATHOLOGY [id number] [place], Platelets (Bld) [#/Vol] 210 10*3/uL Normal 150-400 [facility] Comment on above: Performed By: #### C BC ####[facility] PATHOLOGY [id number] [place], RBC (Bld) [#/Vol] 2.49 10*6/uL Low 4.50-5.90 [facility] Comment on above: Performed By: #### C BC ####[facility] PATHOLOGY [id number] [place], WBC (Bld) [#/Vol] 12.3 10*3/uL High 4.5-11.5 [facility] Comment on above: Performed By: #### C BC ####S PATHOLOGY [id number] [place], Care Plan Noteon 03-25-2021 Adjutant General Authentication Interface Message Text Normal [facility] Adjutant General Authentication Interface Message Text Normal [facility] Consultson 03-25-2021 Adjutant General Authentication Interface Message Text Normal The [facility] Adjutant General Authentication Interface Message Text Normal The [facility] GLUCOSE, FINGERSTICK-IN OFFI CEon 03-25-2021 Glucose [Mass/Vol] 121 mg/dL High 80-116 [facility] Comment on above: Performed By: #### 8 2948 ####NURSING GLUCOSE [id number] [place], [address] Glucose [Mass/Vol] 136 mg/dL High 80-116 [facility] Comment on above: Result Comment: Salvador jovel RN, APN, MD Performed By: #### 8 2948 ####NURSING GLUCOSE [id number] [place], [address] Glucose [Mass/Vol] 164 mg/dL High 80-116 [facility] Comment on above: Result Comment: Salvador jovel RN, APN, MD Performed By: #### 8 2948 ####NURSING GLUCOSE [id number] [place], [address] Glucose [Mass/Vol] 171 mg/dL High 80-116 [facility] Comment on above: Performed By: #### 8 7668 ####NURSING GLUCOSE [id number] [place], [address] HEPATIC FUNCTION PANELon Albumin [Mass/Vol] 2.6 g/dL Low 3.4-5.1 [facility] Comment on above: Performed By: #### C Phani, MG, HEPATIC ####[facility] [id number] [place], ALK 83 IU/L Normal 40-200 [facility] Comment on above: Performed By: #### Deborah Jeronimo, MG, HEPATIC ####[facility] [id number] [place], ALT [Catalytic activity/Vol] 53 U/L High 7-40 [facility] Comment on above: Performed By: #### Deborah Jeronimo, MG, HEPATIC ####[facility] [id number] [place], AST [Catalytic activity/Vol] 60 U/L High 7-40 [facility] Comment on above: Performed By: #### Deborah Jeronimo MG, HEPATIC ####S PATHOLOGY [id number] [place], Bilirubin [Mass/Vol] 1.2 mg/dL Normal 0.1-1.5 [facility] Comment on above: Performed By: #### Deborah Jeronimo, MG, HEPATIC ####S PATHOLOGY [id number] [place], Bilirubin.direct [Mass/Vol] 0.30 mg/dL Normal 0.10-0.30 [facility] Comment on above: Performed By: #### Deborah Jeronimo MG, HEPATIC ####S PATHOLOGY [id number] [place], Protein [Mass/Vol] 5.7 g/dL Normal 5.7-8.1 [facility] Comment on above: Performed By: #### Deborah Jeronimo MG, HEPATIC ####[facility] PATHOLOGY [id number] [place], MAGNESIUMon 03-25-2021 Magnesium [Mass/Vol] 2.1 mg/dL Normal 1.6-2.8 [facility] Comment on above: Performed By: #### Deborah Jeronimo MG, HEPATIC ####S PATHOLOGY [id number] [place], Progress Noteson 03-25-2021 Adjutant General Authentication Interface Message Text Message sent to Dr Hernandes: could we possibly get cortisone cream ordered for pt's back. He is itchy, reddened skin, and some tearing to his moles on his back from the pt scratching. Will monitor for order, or contraindication. Normal The [employer] Authentication Interface Message Text Both lumens of PICC are sluggish to flush and do not give blood return. TPN paused. Dr. Umana notified and order for Cath-Ermias received. Normal The [employer] Authentication Interface Message Text Normal The [employer] Authentication Interface Message Text [facility] PLAN NOTE S: O: AP: Rest of care per customer experience intern note Kacie Rogers MD PGY-2 [phone] Normal The [facility] BASIC METABOLIC PANELon 10-2 Anion gap [Moles/Vol] 17 mmol/L Normal 10-20 [facility] Comment on above: Performed By: #### H EPATIC, PHOS, CH8, TRIG, MG ####S PATHOLOGY [id number] [place], Calcium [Mass/Vol] 8.5 mg/dL Normal 8.4-10.4 [facility] Comment on above: Performed By: #### H EPATIC, PHOS, CH8, TRIG, MG ####S PATHOLOGY [id number] [place], Chloride [Moles/Vol] 101 mmol/L Normal 97-111 [facility] Comment on above: Performed By: #### H EPATIC, PHOS, CH8, TRIG, MG ####[facility] PATHOLOGY [id number] [place], CO2 [Moles/Vol] 26 mmol/L Normal 21-30 [facility] Comment on above: Performed By: #### H EPATIC, PHOS, CH8, TRIG, MG ####S PATHOLOGY [id number] [place], Creatinine [Mass/Vol] 1.11 mg/dL Normal 0.80-1.30 [facility] Comment on above: Performed By: #### H EPATIC, PHOS, CH8, TRIG, MG ####[facility] PATHOLOGY [id number] [place], ESTIMATED GFR (CKD-EPI) 65 mL/min/1.73sqm Normal >=60 [facility] Comment on above: Performed By: #### H EPATIC, PHOS, CH8, TRIG, MG ####S PATHOLOGY [id number] [place], Glucose [Mass/Vol] 196 mg/dL High 80-116 [facility] Comment on above: Performed By: #### H EPATIC, PHOS, CH8, TRIG, MG ####S PATHOLOGY [id number] [place], Potassium [Moles/Vol] 4.3 mmol/L Normal 3.3-5.3 [facility] Comment on above: Performed By: #### H EPATIC, PHOS, CH8, TRIG, MG ####[facility] PATHOLOGY [id number] [place], Sodium [Moles/Vol] 140 mmol/L Normal 135-148 [facility] Comment on above: Performed By: #### H EPATIC, PHOS, CH8, TRIG, MG ####[facility] PATHOLOGY [id number] [place], Urea nitrogen [Mass/Vol] 30 mg/dL High 8-22 [facility] Comment on above: Performed By: #### H EPATIC, PHOS, CH8, TRIG, MG ####[facility] PATHOLOGY [id number] [place] [address], CBC WITH DIFFERENTIALon 10-2 Basophils (Bld) [#/Vol] 0.09 10*3/uL Normal 0.00-0.20 [facility] Comment on above: Performed By: #### C BCDSAT ####[facility] PATHOLOGY [id number] [place] [address], Basophils/100 WBC (Bld) 0.5 % Normal <=1.9 [facility] Comment on above: Performed By: #### C BCDSAT ####[facility] PATHOLOGY [id number] [place], Eosinophils (Bld) [#/Vol] 0.35 10*3/uL Normal 0.00-0.70 [facility] Comment on above: Performed By: #### C BCDSAT ####[facility] PATHOLOGY [id number] [place] [address], Eosinophils/100 WBC (Bld) 2.0 % Normal 0.1-4.0 [facility] Comment on above: Performed By: #### C BCDSAT ####[facility] PATHOLOGY [id number] [place] [address], Erythrocyte distribution width (RBC) [Ratio] 14.4 % Normal 11.5-14.5 [facility] Comment on above: Performed By: #### C VERAAT ####[facility] PATHOLOGY [id number] [place], Hematocrit (Bld) [Volume fraction] 24.3 % Low 41.0-53.0 [facility] Comment on above: Performed By: #### C VERAAT ####[facility] PATHOLOGY [id number] [place], Hemoglobin (Bld) [Mass/Vol] 8.1 g/dL Low 13.9-16.3 [facility] Comment on above: Performed By: #### C VERAAT ####[facility] PATHOLOGY [id number] [place] [address], Lymphocytes (Bld) [#/Vol] 1.18 10*3/uL Normal 1.00-4.80 [facility] Comment on above: Performed By: #### C VERAAT ####[facility] PATHOLOGY [id number] [place] [address], Lymphocytes/100 WBC (Bld) 6.5 % Low 24.0-44.0 [facility] Comment on above: Performed By: #### Deborah GAMEZAT ####[facility] PATHOLOG[facility] [id number] [place], MCH (RBC) [Entitic mass] 30.9 pg Normal 26.0-34.0 [facility] Comment on above: Performed By: #### C VERAAT ####[facility] PATHOLOGY [id number] [place], MCHC (RBC) [Mass/Vol] 33.3 g/dL Normal 32.0-35.9 [facility] Comment on above: Performed By: #### C VERAAT ####[facility] PATHOLOGY [id number] [place], MCV (RBC) [Entitic vol] 93 fL Normal 80-100 [facility] Comment on above: Performed By: #### C VERAAT ####[facility] PATHOLOGY [id number] [place], MONOCYTE DISTRIBUTION WIDTH Normal [facility] Comment on above: Performed By: #### Deborah GRBUBSDSAT ####[facility] PATHOLOGY [id number] [place], Monocytes (Bld) [#/Vol] 1.41 10*3/uL High 0.20-1.00 [facility] Comment on above: Performed By: #### Deborah GAMEZAT ####[facility] PATHOLOG[facility] [id number] [place], Monocytes/100 WBC (Bld) 7.8 % Normal 2.0-11.0 [facility] Comment on above: Performed By: #### Deborah GAMEZAT ####[facility] PATHOLOGY [id number] [place] [address], Neutrophils (Bld) [#/Vol] 15.08 10*3/uL High 1.50-8.00 [facility] Comment on above: Performed By: #### Deborah GAMEZAT ####[facility] PATHOLOGY [id number] [place] [address], Neutrophils/100 WBC (Bld) 83.3 % High 31.0-76.0 [facility] Comment on above: Performed By: #### Deborah GAMEZAT ####[facility] PATHOLOG[facility] [id number] [place], Platelet mean volume (Bld) [Entitic vol] 10.2 fL Normal 7.5-11.2 [facility] Comment on above: Performed By: #### Deborah BCMARIAMAAT ####[facility] PATHOLOG[facility] [id number] [place], Platelets (Bld) [#/Vol] 210 10*3/uL Normal 150-400 [facility] Comment on above: Performed By: #### Deborah GAMEZAT ####[facility] PATHOLOGY [id number] [place], RBC (Bld) [#/Vol] 2.62 10*6/uL Low 4.50-5.90 [facility] Comment on above: Performed By: #### Deborah GAMEZAT ####[facility] PATHOLOG[facility] [id number] [place], WBC (Bld) [#/Vol] 18.1 10*3/uL High 4.5-11.5 [facility] Comment on above: Performed By: #### C BCDSAT ####[facility] PATHOLOG[facility] [id number] [place], Basophils (Bld) [#/Vol] 0.18 10*3/uL Normal 0.00-0.20 [facility] Comment on above: Performed By: #### C BCDSAT ####[facility] PATH[facility] [id number] [place], [place], Basophils/100 WBC (Bld) 0.9 % Normal <=1.9 [facility] Comment on above: Performed By: #### C BCDSAT ####[facility] PATHOLOGY [id number] [place] [address], Eosinophils (Bld) [#/Vol] 0.50 10*3/uL Normal 0.00-0.70 [facility] Comment on above: Performed By: #### C BCDSAT ####[facility] PATH[facility] [id number] [place], Eosinophils/100 WBC (Bld) 2.5 % Normal 0.1-4.0 [facility] Comment on above: Performed By: #### C BCDSAT ####[facility] PATH[facility] [id number] [place], Erythrocyte distribution width (RBC) [Ratio] 14.4 % Normal 11.5-14.5 [facility] Comment on above: Performed By: #### C BCDSAT ####[facility] PATH[facility] [id number] [place], Hematocrit (Bld) [Volume fraction] 24.3 % Low 41.0-53.0 [facility] Comment on above: Performed By: #### C BCDSAT ####[facility] PATHOLOG[facility] [id number] [place], Hemoglobin (Bld) [Mass/Vol] 8.1 g/dL Low 13.9-16.3 [facility] Comment on above: Performed By: #### C HUMERADSAT ####[facility] PATHOLOG[facility] [id number] [place], Lymphocytes (Bld) [#/Vol] 1.28 10*3/uL Normal 1.00-4.80 [facility] Comment on above: Performed By: #### C VERAAT ####[facility] PATHOLOGY [id number] [place], Lymphocytes/100 WBC (Bld) 6.4 % Low 24.0-44.0 [facility] Comment on above: Performed By: #### Deborah GAMEZAT ####[facility] PATH[facility] [id number] [place], MCH (RBC) [Entitic mass] 30.6 pg Normal 26.0-34.0 [facility] Comment on above: Performed By: #### Deborah GAMEZAT ####[facility] PATHOLOGY [id number] [place] [address], MCHC (RBC) [Mass/Vol] 33.1 g/dL Normal 32.0-35.9 [facility] Comment on above: Performed By: #### Deborah GAMEZAT ####[facility] PATH[facility] RADSDSGBHG1769 [place], MCV (RBC) [Entitic vol] 93 fL Normal 80-100 [facility] Comment on above: Performed By: #### Deborah GAMEZAT ####[facility] PATHOLOGY UANSIEHRUX[address] [place] [address], MONOCYTE DISTRIBUTION WIDTH Normal [facility] Comment on above: Performed By: #### Deborah GAMEZAT ####[facility] PATH[facility] [id number] [place], Monocytes (Bld) [#/Vol] 2.23 10*3/uL High 0.20-1.00 [facility] Comment on above: Performed By: #### Deborah GAMEZAT ####[facility] PATH[facility] [id number] [place], Monocytes/100 WBC (Bld) 11.2 % High 2.0-11.0 [facility] Comment on above: Performed By: #### Deborah GAMEZAT ####[facility] PATH[facility] [id number] [place], Neutrophils (Bld) [#/Vol] 15.70 10*3/uL High 1.50-8.00 [facility] Comment on above: Performed By: #### Deborah GAMEZAT ####[facility] PATHOLOG[facility] [id number] [place] [address], Neutrophils/100 WBC (Bld) 79.0 % High 31.0-76.0 [facility] Comment on above: Performed By: #### Deborah GAMEZAT ####[facility] PATHOLOGY [id number] [place] [address], Platelet mean volume (Bld) [Entitic vol] 10.1 fL Normal 7.5-11.2 [facility] Comment on above: Performed By: #### Deborah GAMEZAT ####[facility] PATHOLOGY [id number] [place] [address], Platelets (Bld) [#/Vol] 209 10*3/uL Normal 150-400 [facility] Comment on above: Performed By: #### Deborah GAMEZAT ####[facility] PATHOLOG[facility] [id number] [place] [address], RBC (Bld) [#/Vol] 2.63 10*6/uL Low 4.50-5.90 [facility] Comment on above: Performed By: #### Deborah GAMEZAT ####[facility] PATH[facility] [id number] [place] [address], WBC (Bld) [#/Vol] 19.9 10*3/uL High 4.5-11.5 [facility] Comment on above: Performed By: #### Deborah GAMEZAT ####[facility] PATH[facility] [id number] [place], Basophils (Bld) [#/Vol] 0.06 10*3/uL Normal 0.00-0.20 [facility] Comment on above: Performed By: #### Deborah GAMEZAT ####[facility] PATH[facility] [id number] [place], Basophils/100 WBC (Bld) 0.3 % Normal <=1.9 [facility] Comment on above: Performed By: #### C BCDSAT ####[facility] PATH[facility] [id number] [place], Eosinophils (Bld) [#/Vol] 0.45 10*3/uL Normal 0.00-0.70 [facility] Comment on above: Performed By: #### C BCDSAT ####[facility] PATHOLOG[facility] [id number] [place], Eosinophils/100 WBC (Bld) 2.4 % Normal 0.1-4.0 [facility] Comment on above: Performed By: #### C BCDSAT ####[facility] PATH[facility] [id number] [place], Erythrocyte distribution width (RBC) [Ratio] 14.5 % Normal 11.5-14.5 [facility] Comment on above: Performed By: #### C BCDSAT ####[facility] PATH[facility] [id number] [place], Hematocrit (Bld) [Volume fraction] 25.2 % Low 41.0-53.0 [facility] Comment on above: Performed By: #### C BCDSAT ####[facility] PATH[facility] [id number] [place], Hemoglobin (Bld) [Mass/Vol] 8.1 g/dL Low 13.9-16.3 [facility] Comment on above: Performed By: #### C BCDSAT ####[facility] PATH[facility] [id number] [place], Lymphocytes (Bld) [#/Vol] 1.14 10*3/uL Normal 1.00-4.80 [facility] Comment on above: Performed By: #### C BCDSAT ####[facility] PATH[facility] [id number] [place], Lymphocytes/100 WBC (Bld) 6.2 % Low 24.0-44.0 [facility] Comment on above: Performed By: #### C BCDSAT ####[facility] PATH[facility] [id number] [place], MCH (RBC) [Entitic mass] 30.9 pg Normal 26.0-34.0 [facility] Comment on above: Performed By: #### C BCDSAT ####[facility] PATH[facility] [id number] [place], MCHC (RBC) [Mass/Vol] 32.1 g/dL Normal 32.0-35.9 [facility] Comment on above: Performed By: #### C BCDSAT ####[facility] PATHOLOG[facility] [id number] [place], MCV (RBC) [Entitic vol] 96 fL Normal 80-100 [facility] Comment on above: Performed By: #### C BCDSAT ####[facility] PATH[facility] AFIKZJMIVB7038 [place], MONOCYTE DISTRIBUTION WIDTH Normal [facility] Comment on above: Performed By: #### C BCDSAT ####[facility] PATHOLOG[facility] [id number] [place], Monocytes (Bld) [#/Vol] 1.91 10*3/uL High 0.20-1.00 [facility] Comment on above: Performed By: #### C BCDSAT ####[facility] PATH[facility] [id number] [place], Monocytes/100 WBC (Bld) 10.3 % Normal 2.0-11.0 [facility] Comment on above: Performed By: #### C BCDSAT ####[facility] PATHOLOG[facility] [id number] [place], Neutrophils (Bld) [#/Vol] 14.99 10*3/uL High 1.50-8.00 [facility] Comment on above: Performed By: #### C BCDSAT ####[facility] PATHOLOG[facility] QWSSKMJVMZ7510 [place], Neutrophils/100 WBC (Bld) 80.9 % High 31.0-76.0 [facility] Comment on above: Performed By: #### C BCDSAT ####S PATHOLOGY [id number] [place], Platelet mean volume (Bld) [Entitic vol] 10.0 fL Normal 7.5-11.2 [facility] Comment on above: Performed By: #### C BCDSAT ####S PATHOLOGY [id number] [place], Platelets (Bld) [#/Vol] 200 10*3/uL Normal 150-400 [facility] Comment on above: Performed By: #### C HUMERADSAT ####S PATHOLOGY YZSTWTSQUS8818 [place], RBC (Bld) [#/Vol] 2.62 10*6/uL Low 4.50-5.90 [facility] Comment on above: Performed By: #### C VERAAT ####S PATHOLOGY [id number] [place], WBC (Bld) [#/Vol] 18.5 10*3/uL High 4.5-11.5 [facility] Comment on above: Performed By: #### C VERAAT ####[facility] PATHOLOGY [id number] [place], Care Plan Noteon 03-24-2021 [employer] Authentication Interface Message Text Normal [facility] Consultson 03-24-2021 [employer] Authentication Interface Message Text Normal [facility] [employer] Authentication Interface Message Text Normal [facility] [employer] Authentication Interface Message Text Normal [facility] GLUCOSE, FINGERSTICK-IN OFFI CEon 03-24-2021 Glucose [Mass/Vol] 222 mg/dL High 80-116 [facility] Comment on above: Performed By: #### 8 [id number] ####NURSING GLUCOSE [id number] [place], Glucose [Mass/Vol] 156 mg/dL High 80-116 [facility] Comment on above: Result Comment: Foll ow Protocol Performed By: #### 8 6469 ####NURSING GLUCOSE OSIXRNX5943 [place], [address] Glucose [Mass/Vol] 185 mg/dL High 80-116 [facility] Comment on above: Result Comment: Foll ow Protocol Performed By: #### 8 2948 ####NURSING GLUCOSE MYZWRHI2601 [place], [address] Glucose [Mass/Vol] 228 mg/dL High 80-116 [facility] Comment on above: Result Comment: Salvador jovel RN, APN, MD Performed By: #### 8 2948 ####NURSING GLUCOSE KXUKLNE5927 [place], [address] Glucose [Mass/Vol] 212 mg/dL High 80-116 [facility] Comment on above: Result Comment: Salvador jovel RN, APN, MD Performed By: #### 8 2948 ####NURSING GLUCOSE PFGZKJB1589 [place], [address] HEPATIC FUNCTION PANELon Albumin [Mass/Vol] 2.7 g/dL Low 3.4-5.1 [facility] Comment on above: Performed By: #### H EPATIC, PHOS, CH8, TRIG, MG ####[facility] ERLGAOXONE[address] [place] [address], ALK 75 IU/L Normal 40-200 [facility] Comment on above: Performed By: #### H EPATIC, PHOS, CH8, TRIG, MG ####[facility] LYUBLEAYNB0211 [place], ALT [Catalytic activity/Vol] 50 U/L High 7-40 [facility] Comment on above: Performed By: #### H EPATIC, PHOS, CH8, TRIG, MG ####[facility] BXBHLVOVIJ0959 [place], AST [Catalytic activity/Vol] 57 U/L High 7-40 [facility] Comment on above: Performed By: #### H EPATIC, PHOS, CH8, TRIG, MG ####[facility] HCMSKBWIIZ3726 [place], Bilirubin [Mass/Vol] 0.7 mg/dL Normal 0.1-1.5 [facility] Comment on above: Performed By: #### H EPATIC, PHOS, CH8, TRIG, MG ####S PATHOLOGY [id number] [place], Bilirubin.direct [Mass/Vol] 0.50 mg/dL High 0.10-0.30 [facility] Comment on above: Performed By: #### H EPATIC, PHOS, CH8, TRIG, MG ####[facility] HBMFJZDFKZ1273 [place], Protein [Mass/Vol] 5.9 g/dL Normal 5.7-8.1 [facility] Comment on above: Performed By: #### H EPATIC, PHOS, CH8, TRIG, MG ####[facility] HKGOGJTSUO4903 [place], MAGNESIUMon 03-24-2021 Magnesium [Mass/Vol] 2.2 mg/dL Normal 1.6-2.8 [facility] Comment on above: Performed By: #### H EPATIC, PHOS, CH8, TRIG, MG ####S PATHOLOGY MQFLPJAXUO6887 [place], PHOSPHORUSon 03-24-2021 Phosphate [Mass/Vol] 3.5 mg/dL Normal 2.3-4.2 [facility] Comment on above: Performed By: #### H EPATIC, PHOS, CH8, TRIG, MG ####S PATHOLOGY GEGHSALNDF3771 [place], Progress Noteson 03-24-2021 [employer] Authentication Interface Message Text Normal [facility] [employer] Authentication Interface Message Text Normal [facility] [employer] Authentication Interface Message Text Normal [facility] [employer] Authentication Interface Message Text Normal [facility] [employer] Authentication Interface Message Text As patient is transitioned off amiodarone gtt for WCT, no indication to start oral amiodarone. Patient to get 30-day event monitor and follow up with EP in 4 weeks. Normal The [employer] [facility] TRIGLYCERIDESon 03-24-2021 Triglyceride [Mass/Vol] 152 mg/dL High <151 [facility] Comment on above: Performed By: #### H EPATIC, PHOS, CH8, TRIG, MG ####[facility] LKEHUFROEE6251 [place], Transfer Noteon 03-24-2021 [employer] Authentication Interface Message Text Normal [facility] BASIC METABOLIC PANELon 03-05 Anion gap [Moles/Vol] 15 mmol/L Normal 10-20 [facility] Comment on above: Performed By: #### Deborah Jeronimo MG, LISSETH ####[facility] JSIAPVDOFM4476 [place], Calcium [Mass/Vol] 8.3 mg/dL Low 8.4-10.4 [facility] Comment on above: Performed By: #### MG Méndez PHOS ####[facility] [id number] [place], Chloride [Moles/Vol] 104 mmol/L Normal 97-111 [facility] Comment on above: Performed By: #### MG Méndez PHOS ####[facility] EEJGZYAKTN8084 [place], CO2 [Moles/Vol] 25 mmol/L Normal 21-30 [facility] Comment on above: Performed By: #### MG Méndez PHOS ####[facility] APIOWJPSUD0980 [place], Creatinine [Mass/Vol] 1.13 mg/dL Normal 0.80-1.30 [facility] Comment on above: Performed By: #### Deborah Jeronimo MG, BRIDGETTS ####[facility] GYNJEIHNHJ7267 [place], ESTIMATED GFR (CKD-EPI) 63 mL/min/1.73sqm Normal >=60 [facility] Comment on above: Performed By: #### Deborah Jeronimo MG PHOS ####[facility] NOKSLUDUKL3875 [place], Glucose [Mass/Vol] 238 mg/dL High 80-116 [facility] Comment on above: Performed By: #### Deborah Jeronimo MGBRIDGETTS ####[facility] JKZHCCKPKD2858 [place], Potassium [Moles/Vol] 4.7 mmol/L Normal 3.3-5.3 [facility] Comment on above: Result Comment: Hemo lysis present Performed By: #### MG Dev, LISSETH ####S PATHOLOGY GEEELVABYB4222 [place], Sodium [Moles/Vol] 139 mmol/L Normal 135-148 [facility] Comment on above: Performed By: #### MG Dev, LISSETH ####S PATHOLOGY HEBEIYZUMG3479 [place], Urea nitrogen [Mass/Vol] 32 mg/dL High 8-22 [facility] Comment on above: Performed By: #### MG Dev, LISSETH ####[facility] [id number] [place], CBC WITH DIFFERENTIALon 10-2 -2020 Basophils (Bld) [#/Vol] 0.04 10*3/uL Normal 0.00-0.20 [facility] Comment on above: Performed By: #### C BCDSAT ####[facility] GNBMJJIOAV7105 [place], Basophils/100 WBC (Bld) 0.2 % Normal <=1.9 [facility] Comment on above: Performed By: #### Deborah BCDSAT ####[facility] PATH[facility] [id number] [place], Eosinophils (Bld) [#/Vol] 0.36 10*3/uL Normal 0.00-0.70 [facility] Comment on above: Performed By: #### Deborah BCDSAT ####S PATHOLOGY JNTKMDZQIR9680 [place], Eosinophils/100 WBC (Bld) 1.9 % Normal 0.1-4.0 [facility] Comment on above: Performed By: #### C BCDSAT ####S PATHOLOGY [id number] [place], Erythrocyte distribution width (RBC) [Ratio] 14.1 % Normal 11.5-14.5 [facility] Comment on above: Performed By: #### C BCDSAT ####[facility] ITJLGOISYQ9319 [place], Hematocrit (Bld) [Volume fraction] 26.1 % Low 41.0-53.0 [facility] Comment on above: Performed By: #### C BCDSAT ####[facility] PATHOLOG[facility] [id number] [place], Hemoglobin (Bld) [Mass/Vol] 8.8 g/dL Low 13.9-16.3 [facility] Comment on above: Performed By: #### C BCDSAT ####[facility] PATHOLOG[facility] IAQORSUFXV[address] [place] [address], Lymphocytes (Bld) [#/Vol] 1.10 10*3/uL Normal 1.00-4.80 [facility] Comment on above: Performed By: #### C HUMERADSAT ####[facility] PATHOLOG[facility] JWUEPJGPFE[address] [place] [address], Lymphocytes/100 WBC (Bld) 5.7 % Low 24.0-44.0 [facility] Comment on above: Performed By: #### C VERAAT ####[facility] PATHOLOG[facility] CMXINWKSBR[address] [place] [address], MCH (RBC) [Entitic mass] 31.4 pg Normal 26.0-34.0 [facility] Comment on above: Performed By: #### C BCDSAT ####[facility] PATHOLOG[facility] [id number] [place] [address], MCHC (RBC) [Mass/Vol] 33.7 g/dL Normal 32.0-35.9 [facility] Comment on above: Performed By: #### C BCDSAT ####[facility] PATH[facility] [id number] [place], MCV (RBC) [Entitic vol] 93 fL Normal 80-100 [facility] Comment on above: Performed By: #### C BCDSAT ####[facility] [id number] [place] [address], MONOCYTE DISTRIBUTION WIDTH Normal [facility] Comment on above: Performed By: #### C BCDSAT ####[facility] [id number] [place], Monocytes (Bld) [#/Vol] 2.00 10*3/uL High 0.20-1.00 [facility] Comment on above: Performed By: #### C BCDSAT ####[facility] [id number] [place], Monocytes/100 WBC (Bld) 10.4 % Normal 2.0-11.0 [facility] Comment on above: Performed By: #### C BCDSAT ####[facility] PATHOLOG[facility] POLGMLDSKE[address] [place] [address], Neutrophils (Bld) [#/Vol] 15.73 10*3/uL High 1.50-8.00 [facility] Comment on above: Performed By: #### C HUMERADSAT ####[facility] PATHOLOG[facility] [id number] [place] [address], Neutrophils/100 WBC (Bld) 81.8 % High 31.0-76.0 [facility] Comment on above: Performed By: #### Deborah GAMEZAT ####[facility] PATHOLOG[facility] [id number] [place] [address], Platelet mean volume (Bld) [Entitic vol] 10.1 fL Normal 7.5-11.2 [facility] Comment on above: Performed By: #### Deborah BCDSAT ####[facility] [id number] [place], Platelets (Bld) [#/Vol] 215 10*3/uL Normal 150-400 [facility] Comment on above: Performed By: #### Deborah BCDSAT ####[facility] SVILIFHBQH1717 [place], RBC (Bld) [#/Vol] 2.80 10*6/uL Low 4.50-5.90 [facility] Comment on above: Performed By: #### Deborah BCDSAT ####[facility] PATHOLOG[facility] [id number] [place] [address] [place], WBC (Bld) [#/Vol] 19.2 10*3/uL High 4.5-11.5 [facility] Comment on above: Performed By: #### C BCDSAT ####[facility] [id number] [place], Basophils (Bld) [#/Vol] 0.07 10*3/uL Normal 0.00-0.20 [facility] Comment on above: Performed By: #### C BCDSAT ####[facility] PATHOLOG[facility] JYPRVEZBIM[address] [place] [address], Basophils/100 WBC (Bld) 0.4 % Normal <=1.9 [facility] Comment on above: Performed By: #### C BCDSAT ####[facility] PATHOLOG[facility] SFGCMGFRAX[address] [place] [address], Eosinophils (Bld) [#/Vol] 0.26 10*3/uL Normal 0.00-0.70 [facility] Comment on above: Performed By: #### C BCDSAT ####[facility] OBBYICTTVF[address] [place] [address], Eosinophils/100 WBC (Bld) 1.3 % Normal 0.1-4.0 [facility] Comment on above: Performed By: #### C BCDSAT ####[facility] [id number] [place] [address], Erythrocyte distribution width (RBC) [Ratio] 14.2 % Normal 11.5-14.5 [facility] Comment on above: Performed By: #### C BCDSAT ####[facility] [id number] [place] [address], Hematocrit (Bld) [Volume fraction] 26.4 % Low 41.0-53.0 [facility] Comment on above: Performed By: #### C BCDSAT ####S PATHOLOGY GMNSROAPJG64[address] [place] [address], Hemoglobin (Bld) [Mass/Vol] 8.7 g/dL Low 13.9-16.3 [facility] Comment on above: Performed By: #### C BCDSAT ####[facility] [id number] [place], Lymphocytes (Bld) [#/Vol] 1.15 10*3/uL Normal 1.00-4.80 [facility] Comment on above: Performed By: #### C BCDSAT ####[facility] [id number] [place], Lymphocytes/100 WBC (Bld) 6.0 % Low 24.0-44.0 [facility] Comment on above: Performed By: #### C BCDSAT ####[facility] [id number] [place], MCH (RBC) [Entitic mass] 30.4 pg Normal 26.0-34.0 [facility] Comment on above: Performed By: #### C BCDSAT ####[facility] PATHOLOG[facility] [id number] [place] [address], MCHC (RBC) [Mass/Vol] 32.9 g/dL Normal 32.0-35.9 [facility] Comment on above: Performed By: #### C BCDSAT ####[facility] [id number] [place], MCV (RBC) [Entitic vol] 92 fL Normal 80-100 [facility] Comment on above: Performed By: #### C BCDSAT ####[facility] PATHOLOGY [id number] [place], [place], MONOCYTE DISTRIBUTION WIDTH Normal [facility] Comment on above: Performed By: #### C BCDSAT ####S PATHOLOGY [id number] [place], [place], Monocytes (Bld) [#/Vol] 1.99 10*3/uL High 0.20-1.00 [facility] Comment on above: Performed By: #### C BCDSAT ####[facility] PATHOLOGY [id number] [place], Monocytes/100 WBC (Bld) 10.4 % Normal 2.0-11.0 [facility] Comment on above: Performed By: #### C BCDSAT ####[facility] PATHOLOGY [id number] [place], Neutrophils (Bld) [#/Vol] 15.68 10*3/uL High 1.50-8.00 [facility] Comment on above: Performed By: #### C BCDSAT ####[facility] PATHOLOGY [id number] [place], Neutrophils/100 WBC (Bld) 81.9 % High 31.0-76.0 [facility] Comment on above: Performed By: #### C BCDSAT ####[facility] PATHOLOGY [id number] [place], Platelet mean volume (Bld) [Entitic vol] 9.5 fL Normal 7.5-11.2 [facility] Comment on above: Performed By: #### C BCDSAT ####[facility] PATHOLOGY [id number] [place] [address], Platelets (Bld) [#/Vol] 211 10*3/uL Normal 150-400 [facility] Comment on above: Performed By: #### C BCDSAT ####[facility] PATHOLOGY [id number] [place], RBC (Bld) [#/Vol] 2.87 10*6/uL Low 4.50-5.90 [facility] Comment on above: Performed By: #### C BCDSAT ####[facility] PATHOLOGY [id number] [place] [address], WBC (Bld) [#/Vol] 19.1 10*3/uL High 4.5-11.5 [facility] Comment on above: Performed By: #### C BCDSAT ####[facility] PATHOLOGY [id number] [place], Basophils (Bld) [#/Vol] 0.05 10*3/uL Normal 0.00-0.20 [facility] Comment on above: Performed By: #### C BCDSAT ####[facility] PATHOLOGY [id number] [place] [address], Basophils/100 WBC (Bld) 0.3 % Normal <=1.9 [facility] Comment on above: Performed By: #### C BCDSAT ####[facility] PATHOLOGY [id number] [place], Eosinophils (Bld) [#/Vol] 0.09 10*3/uL Normal 0.00-0.70 [facility] Comment on above: Performed By: #### C BCDSAT ####[facility] PATHOLOGY [id number] [place], Eosinophils/100 WBC (Bld) 0.5 % Normal 0.1-4.0 [facility] Comment on above: Performed By: #### C BCDSAT ####[facility] PATHOLOGY [id number] [place], Erythrocyte distribution width (RBC) [Ratio] 14.1 % Normal 11.5-14.5 [facility] Comment on above: Performed By: #### C BCDSAT ####[facility] PATHOLOGY [id number] [place] [address], Hematocrit (Bld) [Volume fraction] 28.5 % Low 41.0-53.0 [facility] Comment on above: Performed By: #### C BCDSAT ####[facility] PATHOLOGY [id number] [place], Hemoglobin (Bld) [Mass/Vol] 9.6 g/dL Low 13.9-16.3 [facility] Comment on above: Performed By: #### C BCDSAT ####[facility] PATHOLOGY [id number] [place], Lymphocytes (Bld) [#/Vol] 0.92 10*3/uL Low 1.00-4.80 [facility] Comment on above: Performed By: #### C BCDSAT ####[facility] PATHOLOGY [id number] [place], Lymphocytes/100 WBC (Bld) 4.9 % Low 24.0-44.0 [facility] Comment on above: Performed By: #### C BCDSAT ####[facility] PATHOLOGY [id number] [place], MCH (RBC) [Entitic mass] 31.3 pg Normal 26.0-34.0 [facility] Comment on above: Performed By: #### Deborah GAMEZAT ####[facility] PATHOLOGY [id number] [place], MCHC (RBC) [Mass/Vol] 33.7 g/dL Normal 32.0-35.9 [facility] Comment on above: Performed By: #### C VERAAT ####[facility] PATHOLOGY [id number] [place], MCV (RBC) [Entitic vol] 93 fL Normal 80-100 [facility] Comment on above: Performed By: #### Deborah GAMEZAT ####[facility] PATHOLOGY [id number] [place] [address], MONOCYTE DISTRIBUTION WIDTH Normal [facility] Comment on above: Performed By: #### Deborah GAMEZAT ####[facility] PATHOLOGY [id number] [place] [address], Monocytes (Bld) [#/Vol] 1.89 10*3/uL High 0.20-1.00 [facility] Comment on above: Performed By: #### Deborah GAMEZAT ####[facility] PATHOLOGY [id number] [place], Monocytes/100 WBC (Bld) 10.0 % Normal 2.0-11.0 [facility] Comment on above: Performed By: #### C BCDSAT ####[facility] PATHOLOGY [id number] [place] [address], Neutrophils (Bld) [#/Vol] 15.95 10*3/uL High 1.50-8.00 [facility] Comment on above: Performed By: #### C BCMARIAMAAT ####[facility] PATHOLOGY [id number] [place], Neutrophils/100 WBC (Bld) 84.4 % High 31.0-76.0 [facility] Comment on above: Performed By: #### Deborah BCMARIAMAAT ####S PATHOLOGY [id number] [place], Platelet mean volume (Bld) [Entitic vol] 9.9 fL Normal 7.5-11.2 [facility] Comment on above: Performed By: #### C BCDSAT ####[facility] [id number] [place], Platelets (Bld) [#/Vol] 210 10*3/uL Normal 150-400 [facility] Comment on above: Performed By: #### C BCDSAT ####[facility] [id number] [place], RBC (Bld) [#/Vol] 3.07 10*6/uL Low 4.50-5.90 [facility] Comment on above: Performed By: #### C BCDSAT ####[facility] PATHOLOGY [id number] [place], WBC (Bld) [#/Vol] 18.9 10*3/uL High 4.5-11.5 [facility] Comment on above: Performed By: #### C BCDSAT ####[facility] PATHOLOG[facility] [id number] [place], CTA GI BLEEDon 03-23-2021 CTA GI BLEED Normal [facility] Care Plan Noteon 03-23-2021 Adjutant General Authentication Interface Message Text Normal [facility] Adjutant General Authentication Interface Message Text Normal [facility] Consultson 03-23-2021 Adjutant General Authentication Interface Message Text Normal [facility] Adjutant General Authentication Interface Message Text ACUTE PHYSICAL THERAPY Attempted to see patient for PT visit this date. Patient refused treatment this date due to just getting back from [place] and c/o being too tired. Will follow up as able. Heidi Lambert PT Normal [facility] [employer] [employer] [facility] Adjutant General Authentication Interface Message Text Normal [facility] Adjutant General Authentication Interface Message Text Normal [facility] [employer] [facility] GLUCOSE, FINGERSTICK-IN OFFI CEon 03-23-2021 Glucose [Mass/Vol] 216 mg/dL High 80-116 [facility] Comment on above: Result Comment: Salvador jovel RN, APN, MD Performed By: #### 8 2948 ####NURSING GLUCOSE [id number] [place], [address] Glucose [Mass/Vol] 221 mg/dL High 80-116 [facility] Comment on above: Result Comment: Salvador jovel RN, APN, MD Performed By: #### 8 2948 ####NURSING GLUCOSE [id number] [place], [address] Glucose [Mass/Vol] 237 mg/dL High 80-116 [facility] Comment on above: Performed By: #### 8 2948 ####NURSING GLUCOSE [id number] [place], [address] Glucose [Mass/Vol] 266 mg/dL High 80-116 [facility] Comment on above: Result Comment: Salvador jovel RN, APN, MD Performed By: #### 8 2948 ####NURSING GLUCOSE [id number] [place], [address] MAGNESIUMon 03-23-2021 Magnesium [Mass/Vol] 2.2 mg/dL Normal 1.6-2.8 [facility] Comment on above: Result Comment: Hemo lysis present Performed By: #### C H8, MG, PHOS ####[facility] [id number] [place], PHOSPHORUSon 03-23-2021 Phosphate [Mass/Vol] 3.8 mg/dL Normal 2.3-4.2 [facility] Comment on above: Performed By: #### C H8, MG, PHOS ####[facility] [id number] [place], Progress Noteson 03-23-2021 Adjutant General Authentication Interface Message Text Normal [facility] Adjutant General Authentication Interface Message Text Normal [facility] Adjutant General Authentication Interface Message Text Normal [facility] Adjutant General Authentication Interface Message Text Normal [facility] Adjutant General Authentication Interface Message Text Normal [facility] Adjutant General Authentication Interface Message Text Normal [facility] BASIC METABOLIC PANELon 03-04 Anion gap [Moles/Vol] 17 mmol/L Normal 03-23 [facility] Comment on above: Performed By: #### C H8, HEPATIC, MG, PHOS, TRIG ####S PATHOLOGY [id number] [place], Calcium [Mass/Vol] 8.4 mg/dL Normal 8.4-10.4 [facility] Comment on above: Performed By: #### C H8, HEPATIC, MG, PHOS, TRIG ####[facility] [id number] [place], Chloride [Moles/Vol] 103 mmol/L Normal 97-111 [facility] Comment on above: Performed By: #### C H8, HEPATIC, MG, PHOS, TRIG ####S PATHOLOGY [id number] [place], CO2 [Moles/Vol] 23 mmol/L Normal 21-30 [facility] Comment on above: Performed By: #### C H8, HEPATIC, MG, PHOS, TRIG ####[facility] PATHOLOGY [id number] [place] [address], Creatinine [Mass/Vol] 1.03 mg/dL Normal 0.80-1.30 [facility] Comment on above: Performed By: #### C H8, HEPATIC, MG, PHOS, TRIG ####S PATHOLOGY [id number] [place] [address], ESTIMATED GFR (CKD-EPI) 71 mL/min/1.73sqm Normal >=60 [facility] Comment on above: Performed By: #### C H8, HEPATIC, MG, PHOS, TRIG ####S PATHOLOGY [id number] [place], Glucose [Mass/Vol] 205 mg/dL High 80-116 [facility] Comment on above: Performed By: #### C H8, HEPATIC, MG, PHOS, TRIG ####S PATHOLOGY [id number] [place] [address], Potassium [Moles/Vol] 3.5 mmol/L Normal 3.3-5.3 [facility] Comment on above: Performed By: #### C H8, HEPATIC, MG, PHOS, TRIG ####S PATHOLOGY [id number] [place], Sodium [Moles/Vol] 139 mmol/L Normal 135-148 [facility] Comment on above: Performed By: #### C H8, HEPATIC, MG, PHOS, TRIG ####S PATHOLOGY [id number] [place], Urea nitrogen [Mass/Vol] 24 mg/dL High 8-22 [facility] Comment on above: Performed By: #### C H8, HEPATIC, MG, PHOS, TRIG ####S PATHOLOGY [id number] [place], CBC WITH DIFFERENTIALon 03-04 Erythrocyte distribution width (RBC) [Ratio] 14.1 % Normal 11.5-14.5 [facility] Comment on above: Performed By: #### M DIFF, CBCDSAT ####[facility] PATHOLOGY [id number] [place], Hematocrit (Bld) [Volume fraction] 29.6 % Low 41.0-53.0 [facility] Comment on above: Performed By: #### M DIFF, CBCDSAT ####[facility] PATHOLOGY [id number] [place], Hemoglobin (Bld) [Mass/Vol] 9.9 g/dL Low 13.9-16.3 [facility] Comment on above: Performed By: #### M DIFF, CBCDSAT ####[facility] PATHOLOGY [id number] [place], MCH (RBC) [Entitic mass] 30.9 pg Normal 26.0-34.0 [facility] Comment on above: Performed By: #### M DIFF, CBCDSAT ####[facility] PATHOLOGY [id number] [place], MCHC (RBC) [Mass/Vol] 33.6 g/dL Normal 32.0-35.9 [facility] Comment on above: Performed By: #### M DIFF, CBCDSAT ####[facility] PATHOLOGY [id number] [place], MCV (RBC) [Entitic vol] 92 fL Normal 80-100 [facility] Comment on above: Performed By: #### M DIFF, CBCDSAT ####[facility] PATHOLOGY [id number] [place], MONOCYTE DISTRIBUTION WIDTH Normal [facility] Comment on above: Performed By: #### M DIFF, CBCDSAT ####[facility] PATHOLOGY [id number] [place], Platelet mean volume (Bld) [Entitic vol] 9.6 fL Normal 7.5-11.2 [facility] Comment on above: Performed By: #### M DIFF, CBCDSAT ####[facility] PATHOLOGY [id number] [place] [address], Platelets (Bld) [#/Vol] 228 10*3/uL Normal 150-400 [facility] Comment on above: Performed By: #### M DIFF, CBCDSAT ####[facility] PATHOLOGY [id number] [place] [address], RBC (Bld) [#/Vol] 3.22 10*6/uL Low 4.50-5.90 [facility] Comment on above: Performed By: #### M DIFF, CBCDSAT ####[facility] PATHOLOGY [id number] [place] [address], WBC (Bld) [#/Vol] 19.0 10*3/uL High 4.5-11.5 [facility] Comment on above: Performed By: #### M DIFF, CBCDSAT ####[facility] PATHOLOGY [id number] [place] [address], Basophils (Bld) [#/Vol] 0.06 10*3/uL Normal 0.00-0.20 [facility] Comment on above: Performed By: #### C BCDSAT ####S PATHOLOGY FSOZOVRJEC[address] [place] [address], Basophils/100 WBC (Bld) 0.4 % Normal <=1.9 [facility] Comment on above: Performed By: #### C BCDSAT ####S PATHOLOGY [id number] [place] [address], Eosinophils (Bld) [#/Vol] 0.38 10*3/uL Normal 0.00-0.70 [facility] Comment on above: Performed By: #### C HUMERADSAT ####[facility] PATHOLOGY [id number] [place], Eosinophils/100 WBC (Bld) 2.8 % Normal 0.1-4.0 [facility] Comment on above: Performed By: #### C VERAAT ####[facility] PATHOLOGY [id number] [place] [address], Erythrocyte distribution width (RBC) [Ratio] 14.4 % Normal 11.5-14.5 [facility] Comment on above: Performed By: #### C VERAAT ####[facility] PATHOLOGY [id number] [place] [address], Hematocrit (Bld) [Volume fraction] 33.1 % Low 41.0-53.0 [facility] Comment on above: Performed By: #### C VERAAT ####[facility] PATHOLOGY [id number] [place] [address], Hemoglobin (Bld) [Mass/Vol] 10.9 g/dL Low 13.9-16.3 [facility] Comment on above: Performed By: #### C VERAAT ####[facility] PATHOLOGY [id number] [place] [address], Lymphocytes (Bld) [#/Vol] 1.15 10*3/uL Normal 1.00-4.80 [facility] Comment on above: Performed By: #### C HUMERADSAT ####[facility] PATHOLOGY [id number] [place] [address], Lymphocytes/100 WBC (Bld) 8.5 % Low 24.0-44.0 [facility] Comment on above: Performed By: #### C BCMARIAMAAT ####[facility] PATHOLOGY [id number] [place], MCH (RBC) [Entitic mass] 30.4 pg Normal 26.0-34.0 [facility] Comment on above: Performed By: #### C BCMARIAMAAT ####S PATHOLOGY [id number] [place], MCHC (RBC) [Mass/Vol] 32.9 g/dL Normal 32.0-35.9 [facility] Comment on above: Performed By: #### Deborah GAMEZAT ####[facility] PATHOLOGY [id number] [place], MCV (RBC) [Entitic vol] 93 fL Normal 80-100 [facility] Comment on above: Performed By: #### Deborah GAMEZAT ####[facility] PATHOLOGY [id number] [place], MONOCYTE DISTRIBUTION WIDTH Normal [facility] Comment on above: Performed By: #### Deborah GAMEZAT ####[facility] PATHOLOGY [id number] [place], Monocytes (Bld) [#/Vol] 1.74 10*3/uL High 0.20-1.00 [facility] Comment on above: Performed By: #### Deborah GAMEZAT ####[facility] PATHOLOGY [id number] [place], Monocytes/100 WBC (Bld) 12.9 % High 2.0-11.0 [facility] Comment on above: Performed By: #### Deborah GAMEZAT ####[facility] PATHOLOG[facility] [id number] [place], Neutrophils (Bld) [#/Vol] 10.24 10*3/uL High 1.50-8.00 [facility] Comment on above: Performed By: #### Deborah GAMEZAT ####[facility] PATHOLOGY [id number] [place], Neutrophils/100 WBC (Bld) 75.5 % Normal 31.0-76.0 [facility] Comment on above: Performed By: #### Deborah GAMEZAT ####[facility] PATHOLOGY [id number] [place], Platelet mean volume (Bld) [Entitic vol] 9.5 fL Normal 7.5-11.2 [facility] Comment on above: Performed By: #### C BCDSAT ####[facility] [id number] [place], Platelets (Bld) [#/Vol] 200 10*3/uL Normal 150-400 [facility] Comment on above: Performed By: #### C BCDSAT ####[facility] [id number] [place], RBC (Bld) [#/Vol] 3.58 10*6/uL Low 4.50-5.90 [facility] Comment on above: Performed By: #### C BCDSAT ####S PATHOLOGY [id number] [place], WBC (Bld) [#/Vol] 13.6 10*3/uL High 4.5-11.5 [facility] Comment on above: Performed By: #### C BCDSAT ####S PATHOLOGY [id number] [place], [place], CT PELVIS W/ CONTRASTon 03-04 CT PELVIS W/ CONTRAST Normal [facility] Care Plan Noteon 03-22-2021 Adjutant General Authentication Interface Message Text Normal [facility] Consultson 03-22-2021 Adjutant General Authentication Interface Message Text Normal [facility] Adjutant General Authentication Interface Message Text Normal [facility] Adjutant General Authentication Interface Message Text Normal [facility] Adjutant General Authentication Interface Message Text Physical Therapy New consult received. Pt currently on program. Please see notes in EPIC Lesa Taylor PT Normal [facility] GLUCOSE, FINGERSTICK-IN OFFI CEon 03-22-2021 Glucose [Mass/Vol] 235 mg/dL High 80-116 [facility] Comment on above: Result Comment: Salvador jovel RN, APN, MD Performed By: #### 8 5268 ####NURSING GLUCOSE [id number] [place], Glucose [Mass/Vol] 186 mg/dL High 80-116 [facility] Comment on above: Result Comment: Salvador jovel RN, APN, MD Performed By: #### 8 5295 ####NURSING GLUCOSE [id number] [place], Glucose [Mass/Vol] 173 mg/dL High 80-116 [facility] Comment on above: Result Comment: Salvador jovel RN, APN, MD Performed By: #### 8 2948 ####NURSING GLUCOSE [id number] [place], HEPATIC FUNCTION PANELon Albumin [Mass/Vol] 2.7 g/dL Low 3.4-5.1 [facility] Comment on above: Performed By: #### C H8, HEPATIC, MG, PHOS, TRIG ####[facility] [id number] [place], ALK 70 IU/L Normal 40-200 [facility] Comment on above: Performed By: #### C H8, HEPATIC, MG, PHOS, TRIG ####[facility] [id number] [place] [address], ALT [Catalytic activity/Vol] 53 U/L High 7-40 [facility] Comment on above: Performed By: #### C H8, HEPATIC, MG, PHOS, TRIG ####[facility] [id number] [place], AST [Catalytic activity/Vol] 38 U/L Normal 7-40 [facility] Comment on above: Performed By: #### C H8, HEPATIC, MG, PHOS, TRIG ####[facility] [id number] [place], Bilirubin [Mass/Vol] 1.1 mg/dL Normal 0.1-1.5 [facility] Comment on above: Performed By: #### C H8, HEPATIC, MG, PHOS, TRIG ####[facility] [id number] [place], Bilirubin.direct [Mass/Vol] 0.40 mg/dL High 0.10-0.30 [facility] Comment on above: Performed By: #### C H8, HEPATIC, MG, PHOS, TRIG ####[facility] [id number] [place], Protein [Mass/Vol] 5.8 g/dL Normal 5.7-8.1 [facility] Comment on above: Performed By: #### C H8, HEPATIC, MG, PHOS, TRIG ####S PATHOLOGY [id number] [place], MAGNESIUMon 03-22-2021 Magnesium [Mass/Vol] 1.9 mg/dL Normal 1.6-2.8 [facility] Comment on above: Performed By: #### C H8, HEPATIC, MG, PHOS, TRIG ####[facility] [id number] [place], MANUAL DIFF AND MORPHon 03-04 BANDS % BY MANUAL COUNT 1 % Normal <=10 [facility] Comment on above: Performed By: #### M DIFF, CBCDSAT ####[facility] PATHOLOG[facility] [id number] [place], BANDS ABS BY MANUAL COUNT 0.19 K/uL High <0.01 [facility] Comment on above: Performed By: #### M DIFF, CBCDSAT ####S PATHOLOGY [id number] [place] [address], CELLS COUNTED TOTAL # IN BLOOD 100 Normal [facility] Comment on above: Performed By: #### M DIFF, CBCDSAT ####S PATHOLOGY [id number] [place], [place], LYMPHOCYTES % BY MANUAL COUNT 5.0 % Low 24.0-44.0 [facility] Comment on above: Performed By: #### M DIFF, CBCDSAT ####S PATHOLOGY [id number] [place], LYMPHOCYTES ABS BY MANUAL COUNT 0.95 K/uL Low 1.00-4.80 [facility] Comment on above: Performed By: #### M DIFF, CBCDSAT ####S PATHOLOGY KNZCQAAJTU[address] [place] [address], METAMYELOCYTES % BY MANUAL COUNT 1 % High <0 [facility] Comment on above: Performed By: #### M DIFF, CBCDSAT ####S PATHOLOGY RONKPUZLEY[address] [place] [address], METAMYELOCYTES ABS BY MANUAL COUNT 0.19 K/uL High <0.01 [facility] Comment on above: Performed By: #### M DIFF, CBCDSAT ####[facility] PATHOLOGY [id number] [place], MONOCYTES % BY MANUAL COUNT 8.0 % Normal 2.0-11.0 [facility] Comment on above: Performed By: #### M DIFF, CBCDSAT ####[facility] PATHOLOGY [id number] [place], MONOCYTES ABS BY MANUAL COUNT 1.52 K/uL High 0.20-1.00 [facility] Comment on above: Performed By: #### M DIFF, CBCDSAT ####[facility] PATHOLOGY [id number] [place] [address], NEUTROPHILS % BY MANUAL COUNT 85.0 % High 31.0-76.0 [facility] Comment on above: Performed By: #### M DIFF, CBCDSAT ####[facility] PATHOLOGY [id number] [place], NEUTROPHILS ABS BY MANUAL COUNT 16.15 K/uL High 1.50-8.00 [facility] Comment on above: Performed By: #### M DIFF, CBCDSAT ####[facility] PATHOLOGY [id number] [place] [address], OVALOCYTES Few Normal [facility] Comment on above: Performed By: #### M DIFF, CBCDSAT ####[facility] PATHOLOGY [id number] [place], POLYCHROMASIA Slight Normal [facility] Comment on above: Performed By: #### M DIFF, CBCDSAT ####S PATHOLOGY NIDEZMJIEW7464 [place], Multidisciplinary Noteon [employer]ant General Authentication Interface Message Text Normal [facility] PARTIAL THROMBOPLASTIN TIMEo n 03-22-2021 aPTT Coag (Bld) [Time] 83 s High 25-37 Th e [facility] Comment on above: Performed By: #### A PTT, PT ####S PATHOLOGY [id number] [place] [address], PHOSPHORUSon 03-22-2021 Phosphate [Mass/Vol] 2.7 mg/dL Normal 2.3-4.2 [facility] Comment on above: Performed By: #### C H8, HEPATIC, MG, PHOS, TRIG ####[facility] [id number] [place], PROTHROMBIN TIME AND INRon INR Coag (PPP) [Relative time] 1.80 {INR} High 0.90-1.10 [facility] Comment on above: Performed By: #### A PTT, PT ####[facility] [id number] [place], PT Coag (PPP) [Time] 19.9 s High 9.7-12.9 [facility] Comment on above: Performed By: #### A PTT, PT ####S PATHOLOGY [id number] [place], [place], Progress Noteson 03-22-2021 Adjutant General Authentication Interface Message Text 8:21 PM Attempted to call daughter with update about CT. Home number unidentified individual answered stating they were not the listed contact Dominique Dipesh. No answer on mobile number. Will plan to update tomorrow or if she calls. Normal The [employer] [facility] Adjutant General Authentication Interface Message Text Normal The [employer] [facility] Adjutant General Authentication Interface Message Text Normal [facility] [employer] [facility] Adjutant General Authentication Interface Message Text Normal [facility] Adjutant General Authentication Interface Message Text Normal [facility] TRIGLYCERIDESon 03-22-2021 Triglyceride [Mass/Vol] 143 mg/dL Normal <151 [facility] Comment on above: Performed By: #### C H8, HEPATIC, MG, PHOS, TRIG ####[facility] [id number] [place], BASIC METABOLIC PANELon 03-04 Anion gap [Moles/Vol] 15 mmol/L Normal 10-20 [facility] Comment on above: Performed By: #### C H8, PHOS, HEPATIC, MG, TRIG ####[facility] PATH[facility] [id number] [place], Calcium [Mass/Vol] 8.3 mg/dL Low 8.4-10.4 [facility] Comment on above: Performed By: #### C H8, PHOS, HEPATIC, MG, TRIG ####[facility] [id number] [place], Chloride [Moles/Vol] 102 mmol/L Normal 97-111 [facility] Comment on above: Performed By: #### C H8, PHOS, HEPATIC, MG, TRIG ####[facility] EXOHQGRUTP4171 [place], CO2 [Moles/Vol] 27 mmol/L Normal 21-30 [facility] Comment on above: Performed By: #### C H8, PHOS, HEPATIC, MG, TRIG ####[facility] [id number] [place], Creatinine [Mass/Vol] 1.11 mg/dL Normal 0.80-1.30 [facility] Comment on above: Performed By: #### C H8, PHOS, HEPATIC, MG, TRIG ####[facility] PIJDPXMPPX[address] [place] [address], ESTIMATED GFR (CKD-EPI) 65 mL/min/1.73sqm Normal >=60 [facility] Comment on above: Performed By: #### C H8, PHOS, HEPATIC, MG, TRIG ####[facility] [id number] [place], Glucose [Mass/Vol] 238 mg/dL High 80-116 [facility] Comment on above: Performed By: #### C H8, PHOS, HEPATIC, MG, TRIG ####[facility] PATH[facility] AIHSBEZZYO5405 [place], Potassium [Moles/Vol] 3.5 mmol/L Normal 3.3-5.3 [facility] Comment on above: Performed By: #### C H8, PHOS, HEPATIC, MG, TRIG ####[facility] AXGPMUNZMW9193 [place], Sodium [Moles/Vol] 140 mmol/L Normal 135-148 [facility] Comment on above: Performed By: #### C H8, PHOS, HEPATIC, MG, TRIG ####S PATHOLOGY CIBKVOYCUM2867 [place], Urea nitrogen [Mass/Vol] 28 mg/dL High 01-23 [facility] Comment on above: Performed By: #### C H8, PHOS, HEPATIC, MG, TRIG ####[facility] PATHOLOGY [id number] [place], CBC WITH DIFFERENTIALon 03-04 Basophils (Bld) [#/Vol] 0.08 10*3/uL Normal 0.00-0.20 [facility] Comment on above: Performed By: #### C BCDSAT ####[facility] PATHOLOGY ZRYQIJVHXS[address] [place] [address], Basophils/100 WBC (Bld) 0.5 % Normal <=1.9 [facility] Comment on above: Performed By: #### Deborah GAMEZAT ####[facility] PATHOLOGY [id number] [place] [address], Eosinophils (Bld) [#/Vol] 0.47 10*3/uL Normal 0.00-0.70 [facility] Comment on above: Performed By: #### Deborah GAMEZAT ####[facility] PATHOLOGY GGHTCGEGPF[address] [place] [address], Eosinophils/100 WBC (Bld) 3.1 % Normal 0.1-4.0 [facility] Comment on above: Performed By: #### Deborah GRUBBSDSAT ####S PATHOLOGY GPUENFKNPF[address] [place] [address], Erythrocyte distribution width (RBC) [Ratio] 14.0 % Normal 11.5-14.5 [facility] Comment on above: Performed By: #### Deborah BCMARIAMAAT ####S PATHOLOGY FZHXDRMXMA[address] [place] [address], Hematocrit (Bld) [Volume fraction] 33.7 % Low 41.0-53.0 [facility] Comment on above: Performed By: #### Deborah GAMEZAT ####[facility] PATHOLOGY [id number] [place] [address], Hemoglobin (Bld) [Mass/Vol] 11.0 g/dL Low 13.9-16.3 [facility] Comment on above: Performed By: #### C BCDSAT ####[facility] PATHOLOGY [id number] [place] [address], Lymphocytes (Bld) [#/Vol] 1.19 10*3/uL Normal 1.00-4.80 [facility] Comment on above: Performed By: #### C BCDSAT ####[facility] PATHOLOGY [id number] [place] [address], Lymphocytes/100 WBC (Bld) 7.9 % Low 24.0-44.0 [facility] Comment on above: Performed By: #### C BCDSAT ####[facility] PATHOLOGY OUOLTNOUQU[address] [place] [address], MCH (RBC) [Entitic mass] 30.5 pg Normal 26.0-34.0 [facility] Comment on above: Performed By: #### C BCDSAT ####[facility] PATHOLOGY [id number] [place] [address], MCHC (RBC) [Mass/Vol] 32.7 g/dL Normal 32.0-35.9 [facility] Comment on above: Performed By: #### C BCDSAT ####[facility] PATHOLOGY DCEENDCVKB[address] [place] [address], MCV (RBC) [Entitic vol] 93 fL Normal 80-100 [facility] Comment on above: Performed By: #### C BCDSAT ####[facility] PATHOLOGY [id number] [place] [address], MONOCYTE DISTRIBUTION WIDTH Normal [facility] Comment on above: Performed By: #### C BCDSAT ####[facility] PATHOLOGY [id number] [place] [address], Monocytes (Bld) [#/Vol] 1.98 10*3/uL High 0.20-1.00 [facility] Comment on above: Performed By: #### Deborah BCDSAT ####[facility] PATHOLOGY [id number] [place], Monocytes/100 WBC (Bld) 13.3 % High 2.0-11.0 [facility] Comment on above: Performed By: #### Deborah GAMEZAT ####[facility] PATHOLOGY [id number] [place], Neutrophils (Bld) [#/Vol] 11.25 10*3/uL High 1.50-8.00 [facility] Comment on above: Performed By: #### Deborah GAMEZAT ####[facility] PATHOLOGY [id number] [place], Neutrophils/100 WBC (Bld) 75.2 % Normal 31.0-76.0 [facility] Comment on above: Performed By: #### Deborah GAMEZAT ####[facility] PATHOLOGY [id number] [place], Platelet mean volume (Bld) [Entitic vol] 9.8 fL Normal 7.5-11.2 [facility] Comment on above: Performed By: #### Deborah GAMEZAT ####[facility] PATHOLOGY [id number] [place], Platelets (Bld) [#/Vol] 172 10*3/uL Normal 150-400 [facility] Comment on above: Performed By: #### Deborah GAMEZAT ####[facility] PATHOLOGY [id number] [place], RBC (Bld) [#/Vol] 3.62 10*6/uL Low 4.50-5.90 [facility] Comment on above: Performed By: #### C VERAAT ####[facility] PATHOLOGY [id number] [place], WBC (Bld) [#/Vol] 15.0 10*3/uL High 4.5-11.5 [facility] Comment on above: Performed By: #### Deborah GAMEZAT ####S PATHOLOGY [id number] [place], Care Plan Noteon 03-21-2021 Adjutant General Authentication Interface Message Text Normal [facility] Consultson 03-21-2021 Adjutant General Authentication Interface Message Text Normal [facility] GLUCOSE, FINGERSTICK-IN OFFI CEon 03-21-2021 Glucose [Mass/Vol] 164 mg/dL High 80-116 [facility] Comment on above: Result Comment: Salvador jovel RN, APN, MD Performed By: #### 8 2948 ####NURSING GLUCOSE ADSHIGN8276 [place], [address] Glucose [Mass/Vol] 192 mg/dL High 80-116 [facility] Comment on above: Result Comment: Salvador jovel RN, APN, MD Performed By: #### 8 9628 ####NURSING GLUCOSE CIOZXDB0323 [place], [address] Glucose [Mass/Vol] 201 mg/dL High 80-116 [facility] Comment on above: Result Comment: Salvador jovel RN, APN, MD Performed By: #### 8 6708 ####NURSING GLUCOSE YGEKZKC5392 [place], [address] Glucose [Mass/Vol] 230 mg/dL High 80-116 [facility] Comment on above: Performed By: #### 8 8908 ####NURSING GLUCOSE MWMXZIH9760 [place], [address] HEPATIC FUNCTION PANELon Albumin [Mass/Vol] 2.7 g/dL Low 3.4-5.1 [facility] Comment on above: Performed By: #### C H8, PHOS, HEPATIC, MG, TRIG ####[facility] [id number] [place], ALK 62 IU/L Normal 40-200 [facility] Comment on above: Performed By: #### C H8, PHOS, HEPATIC, MG, TRIG ####[facility] PATH[facility] [id number] [place], ALT [Catalytic activity/Vol] 53 U/L High 7-40 [facility] Comment on above: Performed By: #### C H8, PHOS, HEPATIC, MG, TRIG ####[facility] PATH[facility] [id number] [place], AST [Catalytic activity/Vol] 42 U/L High 7-40 [facility] Comment on above: Performed By: #### C H8, PHOS, HEPATIC, MG, TRIG ####S PATHOLOGY [id number] [place], Bilirubin [Mass/Vol] 1.3 mg/dL Normal 0.1-1.5 [facility] Comment on above: Performed By: #### C H8, PHOS, HEPATIC, MG, TRIG ####S PATHOLOGY AQURKFCTHC8199 [place], Bilirubin.direct [Mass/Vol] 0.50 mg/dL High 0.10-0.30 [facility] Comment on above: Performed By: #### C H8, PHOS, HEPATIC, MG, TRIG ####S PATHOLOGY OSEJKFXJKW1919 [place], Protein [Mass/Vol] 5.9 g/dL Normal 5.7-8.1 [facility] Comment on above: Performed By: #### C H8, PHOS, HEPATIC, MG, TRIG ####S PATHOLOGY FDKEUZOKJV7032 [place], MAGNESIUMon 03-21-2021 Magnesium [Mass/Vol] 2.1 mg/dL Normal 1.6-2.8 [facility] Comment on above: Performed By: #### C H8, PHOS, HEPATIC, MG, TRIG ####S PATHOLOGY [id number] [place], Multidisciplinary Noteon Adjutant General Authentication Interface Message Text Normal [facility] PARTIAL THROMBOPLASTIN TIMEo n 03-21-2021 aPTT Coag (Bld) [Time] 81 s High 25-37 Th e [facility] Comment on above: Performed By: #### A PTT ####S PATHOLOGY WYGVLQTGRZ[address] [place] [address], PHOSPHORUSon 03-21-2021 Phosphate [Mass/Vol] 2.9 mg/dL Normal 2.3-4.2 [facility] Comment on above: Performed By: #### C H8, PHOS, HEPATIC, MG, TRIG ####S PATHOLOGY [id number] [place], Progress Noteson 03-21-2021 Adjutant General Authentication Interface Message Text Normal [facility] Adjutant General Authentication Interface Message Text Normal [facility] Adjutant General Authentication Interface Message Text Normal [facility] Adjutant General Authentication Interface Message Text Normal [facility] TRIGLYCERIDESon 03-21-2021 Triglyceride [Mass/Vol] 131 mg/dL Normal <151 [facility] Comment on above: Performed By: #### C H8, PHOS, HEPATIC, MG, TRIG ####[facility] PATH[facility] ZPXALTPDDE7290 [place], 1:1 Interactionon 03-20-2021 Adjutant General Authentication Interface Message Text Normal [facility] BASIC METABOLIC PANELon 03-04 Anion gap [Moles/Vol] 15 mmol/L Normal 10-20 [facility] Comment on above: Performed By: #### C H8, MG, PHOS ####[facility] LOGJZZSKHT1752 [place], Calcium [Mass/Vol] 8.3 mg/dL Low 8.4-10.4 [facility] Comment on above: Performed By: #### C H8, MG, PHOS ####[facility] PATH[facility] TASOWILFLG0857 [place], Chloride [Moles/Vol] 101 mmol/L Normal 97-111 [facility] Comment on above: Performed By: #### C H8, MG, PHOS ####[facility] PATH[facility] [id number] [place], CO2 [Moles/Vol] 27 mmol/L Normal 21-30 [facility] Comment on above: Performed By: #### C H8, MG, PHOS ####[facility] PATH[facility] ZABKTNQDWU2710 [place], Creatinine [Mass/Vol] 1.09 mg/dL Normal 0.80-1.30 [facility] Comment on above: Performed By: #### C H8, MG, PHOS ####[facility] AJLQVKNIJS3515 [place], ESTIMATED GFR (CKD-EPI) 66 mL/min/1.73sqm Normal >=60 [facility] Comment on above: Performed By: ###MG Naidu PHOS ####[facility] PATH[facility] JMOHMCSRTR0548 [place], Glucose [Mass/Vol] 369 mg/dL High 80-116 [facility] Comment on above: Performed By: #### MG Méndez PHOS ####[facility] PATH[facility] QIEAWFPHOF4787 [place], Potassium [Moles/Vol] 3.9 mmol/L Normal 3.3-5.3 [facility] Comment on above: Performed By: ###MG Naidu PHOS ####S PATHOLOGY KMUKYJOADI8973 [place], Sodium [Moles/Vol] 139 mmol/L Normal 135-148 [facility] Comment on above: Performed By: ###MG Naidu PHOS ####[facility] PATH[facility] CIKDFKCBLC8103 [place], Urea nitrogen [Mass/Vol] 27 mg/dL High 8-22 [facility] Comment on above: Performed By: ###MG Naidu PHOS ####[facility] PATH[facility] ZKBTXBZUCN5444 [place], Anion gap [Moles/Vol] 14 mmol/L Normal 10-20 [facility] Comment on above: Performed By: #### Deborah Jeronimo ####[facility] PATH[facility] KFBVAELMCN3143 [place], Calcium [Mass/Vol] 7.8 mg/dL Low 8.4-10.4 [facility] Comment on above: Performed By: #### Deborah Jeronimo ####[facility] ZUSEZEYJKJ3972 [place], Chloride [Moles/Vol] 101 mmol/L Normal 97-111 [facility] Comment on above: Performed By: #### Deborah Jeronimo ####[facility] PATH[facility] BGHNZQTJSY6080 [place], CO2 [Moles/Vol] 27 mmol/L Normal 21-30 [facility] Comment on above: Performed By: #### C H8 ####[facility] PATHOLOGY GLIYPDKQEF9429 [place], Creatinine [Mass/Vol] 1.22 mg/dL Normal 0.80-1.30 [facility] Comment on above: Performed By: #### C H8 ####[facility] PATHOLOGY GBVDEIKEPF3557 [place], ESTIMATED GFR (CKD-EPI) 58 mL/min/1.73sqm Low >=60 [facility] Comment on above: Performed By: #### C H8 ####[facility] PATHOLOGY [id number] [place] [address], Glucose [Mass/Vol] 411 mg/dL High 80-116 [facility] Comment on above: Performed By: #### C H8 ####[facility] PATHOLOGY [id number] [place], Potassium [Moles/Vol] 3.1 mmol/L Low 3.3-5.3 [facility] Comment on above: Performed By: #### C H8 ####[facility] PATHOLOGY QLOHSAEAKD[address] [place] [address], Sodium [Moles/Vol] 139 mmol/L Normal 135-148 [facility] Comment on above: Performed By: #### C H8 ####[facility] PATHOLOGY KIQAMRYRYE8375 [place], Urea nitrogen [Mass/Vol] 26 mg/dL High 8-22 [facility] Comment on above: Performed By: #### C H8 ####[facility] PATHOLOGY [id number] [place], CBC WITH DIFFERENTIALon 03-04 Basophils (Bld) [#/Vol] 0.07 10*3/uL Normal 0.00-0.20 [facility] Comment on above: Performed By: #### C BCDSAT ####[facility] PATHOLOGY [id number] [place], Basophils/100 WBC (Bld) 0.5 % Normal <=1.9 [facility] Comment on above: Performed By: #### C BCDSAT ####[facility] PATHOLOGY [id number] [place], Eosinophils (Bld) [#/Vol] 0.10 10*3/uL Normal 0.00-0.70 [facility] Comment on above: Performed By: #### C BCDSAT ####[facility] PATHOLOGY [id number] [place] [address], Eosinophils/100 WBC (Bld) 0.7 % Normal 0.1-4.0 [facility] Comment on above: Performed By: #### C BCDSAT ####[facility] PATHOLOGY [id number] [place] [address], Erythrocyte distribution width (RBC) [Ratio] 13.9 % Normal 11.5-14.5 [facility] Comment on above: Performed By: #### C BCDSAT ####[facility] PATHOLOGY [id number] [place] [address], Hematocrit (Bld) [Volume fraction] 34.3 % Low 41.0-53.0 [facility] Comment on above: Performed By: #### C BCDSAT ####[facility] PATHOLOGY [id number] [place] [address], Hemoglobin (Bld) [Mass/Vol] 11.4 g/dL Low 13.9-16.3 [facility] Comment on above: Performed By: #### C BCDSAT ####[facility] PATHOLOGY DUDKPESDUW[address] [place] [address], Lymphocytes (Bld) [#/Vol] 0.82 10*3/uL Low 1.00-4.80 [facility] Comment on above: Performed By: #### C BCDSAT ####[facility] PATHOLOGY AMKYKFGNYM[address] [place] [address], Lymphocytes/100 WBC (Bld) 5.9 % Low 24.0-44.0 [facility] Comment on above: Performed By: #### C BCDSAT ####[facility] PATHOLOGY BEFLMETLUB1676 [place], MCH (RBC) [Entitic mass] 30.9 pg Normal 26.0-34.0 [facility] Comment on above: Performed By: #### Deborah GAMEZAT ####[facility] PATHOLOGY [id number] [place], MCHC (RBC) [Mass/Vol] 33.4 g/dL Normal 32.0-35.9 [facility] Comment on above: Performed By: #### Deborah GAMEZAT ####[facility] PATHOLOGY [id number] [place], MCV (RBC) [Entitic vol] 93 fL Normal 80-100 [facility] Comment on above: Performed By: #### Deborah GAMEZAT ####[facility] PATHOLOGY ZKGKCJAQUW[address] [place] [address], MONOCYTE DISTRIBUTION WIDTH Normal [facility] Comment on above: Performed By: #### Deborah GAMEZAT ####[facility] PATHOLOGY [id number] [place] [address], Monocytes (Bld) [#/Vol] 1.55 10*3/uL High 0.20-1.00 [facility] Comment on above: Performed By: #### Deborah GAMEZAT ####[facility] PATHOLOGY [id number] [place] [address], Monocytes/100 WBC (Bld) 11.2 % High 2.0-11.0 [facility] Comment on above: Performed By: #### Deborah GAMEZAT ####[facility] [facility] [id number] [place] [address], Neutrophils (Bld) [#/Vol] 11.38 10*3/uL High 1.50-8.00 The [facility] Comment on above: Performed By: #### C VERAAT ####[facility] [id number] [place] [address], Neutrophils/100 WBC (Bld) 81.8 % High 31.0-76.0 [facility] Comment on above: Performed By: #### Deborah GAMEZAT ####[facility] [id number] [place], [place], Platelet mean volume (Bld) [Entitic vol] 9.7 fL Normal 7.5-11.2 [facility] Comment on above: Performed By: #### C BCDSAT ####S PATHOLOGY [id number] [place], Platelets (Bld) [#/Vol] 171 10*3/uL Normal 150-400 [facility] Comment on above: Performed By: #### C VERAAT ####[facility] [id number] [place], RBC (Bld) [#/Vol] 3.70 10*6/uL Low 4.50-5.90 [facility] Comment on above: Performed By: #### C VERAAT ####[facility] [id number] [place], WBC (Bld) [#/Vol] 13.9 10*3/uL High 4.5-11.5 [facility] Comment on above: Performed By: #### C VERAAT ####[facility] [id number] [place], [place], Care Plan Noteon 03-20-2021 Adjutant General Authentication Interface Message Text Normal [facility] GLUCOSE, FINGERSTICK-IN OFFI CEon 03-20-2021 Glucose [Mass/Vol] 271 mg/dL High 80-116 [facility] Comment on above: Result Comment: Salvador jovel RN, APN, MD Performed By: #### 8 1863 ####NURSING GLUCOSE [id number] [place], [address] Glucose [Mass/Vol] 296 mg/dL High 80-116 [facility] Comment on above: Result Comment: Salvador jovel RN, APN, MD Performed By: #### 8 0931 ####NURSING GLUCOSE [id number] [place], [address] Glucose [Mass/Vol] 328 mg/dL High 80-116 [facility] Comment on above: Result Comment: Foll ow Protocol Performed By: #### 8 8231 ####NURSING GLUCOSE [id number] [place], [address] Glucose [Mass/Vol] 363 mg/dL High 80-116 [facility] Comment on above: Performed By: #### 8 2948 ####NURSING GLUCOSE [id number] [place], [address] Glucose [Mass/Vol] 368 mg/dL High 80-116 [facility] Comment on above: Result Comment: Foll ow Protocol Performed By: #### 8 2948 ####NURSING GLUCOSE [id number] [place], [address] MAGNESIUMon 03-20-2021 Magnesium [Mass/Vol] 2.5 mg/dL Normal 1.6-2.8 [facility] Comment on above: Performed By: #### MG Méndez PHOS ####[facility] [id number] [place], Multidisciplinary Noteon Adjutant General Authentication Interface Message Text Normal [facility] PARTIAL THROMBOPLASTIN TIMEo n 03-20-2021 aPTT Coag (Bld) [Time] 86 s High 25-37 Th [facility] Comment on above: Performed By: #### A PTT ####[facility] [id number] [place], aPTT Coag (Bld) [Time] 103 s Critically high 25-37 The [facility] Comment on above: Performed By: #### A PTT ####[facility] [id number] [place], aPTT Coag (Bld) [Time] 32 s Normal 25-37 e [facility] Comment on above: Performed By: #### A PTT ####[facility] [id number] [place], PHOSPHORUSon 03-20-2021 Phosphate [Mass/Vol] 2.5 mg/dL Normal 2.3-4.2 [facility] Comment on above: Performed By: #### C MG Jeronimo PHOS ####[facility] [id number] [place], [place], Progress Noteson 03-20-2021 Adjutant General Authentication Interface Message Text Normal [facility] Adjutant General Authentication Interface Message Text Normal [facility] 1:1 Interactionon 03-19-2021 Adjutant General Authentication Interface Message Text Normal [facility] BASIC METABOLIC PANELon 03-04 Anion gap [Moles/Vol] 24 mmol/L High 10-20 [facility] Comment on above: Performed By: #### Deborah Jeronimo MG, PHOS ####[facility] [id number] [place], Calcium [Mass/Vol] 7.8 mg/dL Low 8.4-10.4 [facility] Comment on above: Performed By: #### Dbeorah Jeronimo MG, PHOS ####[facility] [id number] [place], Chloride [Moles/Vol] 101 mmol/L Normal 97-111 [facility] Comment on above: Performed By: #### Deborah Jeronimo MG, PHOS ####[facility] [id number] [place], CO2 [Moles/Vol] 19 mmol/L Low 21-30 [facility] Comment on above: Performed By: #### Deborah Jeronimo MG, PHOS ####[facility] [id number] [place], Creatinine [Mass/Vol] 1.05 mg/dL Normal 0.80-1.30 [facility] Comment on above: Performed By: #### Deborah Jeronimo MG, PHOS ####[facility] [id number] [place], ESTIMATED GFR (CKD-EPI) 69 mL/min/1.73sqm Normal >=60 [facility] Comment on above: Performed By: #### Deborah HClementina MG, PHOS ####[facility] [id number] [place], Glucose [Mass/Vol] 370 mg/dL High 80-116 [facility] Comment on above: Performed By: #### Deborah H8 MG, PHOS ####[facility] [id number] [place], Potassium [Moles/Vol] 7.8 mmol/L Critically high 3.3-5.3 [facility] Comment on above: Result Comment: Hemo lysis present Performed By: #### MG Méndez PHOS ####[facility] [id number] [place], Sodium [Moles/Vol] 136 mmol/L Normal 135-148 [facility] Comment on above: Performed By: #### MG Dev PHOS ####[facility] [id number] [place], Urea nitrogen [Mass/Vol] 25 mg/dL High 8-22 [facility] Comment on above: Performed By: #### MG Méndez PHOS ####[facility] [id number] [place], Anion gap [Moles/Vol] 17 mmol/L Normal 10-20 [facility] Comment on above: Performed By: #### MG Dev PHOS ####[facility] [id number] [place], Calcium [Mass/Vol] 8.6 mg/dL Normal 8.4-10.4 [facility] Comment on above: Performed By: #### MG Dev PHOS ####[facility] [id number] [place], Chloride [Moles/Vol] 99 mmol/L Normal 97-111 [facility] Comment on above: Performed By: #### MG eDv PHOS ####[facility] [id number] [place], CO2 [Moles/Vol] 25 mmol/L Normal 21-30 [facility] Comment on above: Performed By: #### MG Dev, PHOS ####[facility] [id number] [place], Creatinine [Mass/Vol] 1.09 mg/dL Normal 0.80-1.30 [facility] Comment on above: Performed By: #### MG Dev PHOS ####[facility] [id number] [place], ESTIMATED GFR (CKD-EPI) 66 mL/min/1.73sqm Normal >=60 [facility] Comment on above: Performed By: #### MG Dev, PHOS ####[facility] [id number] [place], Glucose [Mass/Vol] 378 mg/dL High 80-116 [facility] Comment on above: Performed By: #### MG Dev, PHOS ####[facility] [id number] [place], Potassium [Moles/Vol] 4.1 mmol/L Normal 3.3-5.3 [facility] Comment on above: Performed By: #### MG Dev, PHOS ####[facility] [id number] [place], Sodium [Moles/Vol] 137 mmol/L Normal 135-148 [facility] Comment on above: Performed By: #### MG Dev, PHOS ####[facility] [id number] [place], Urea nitrogen [Mass/Vol] 17 mg/dL Normal 8-22 [facility] Comment on above: Performed By: #### MG Dev, BRIDGETTS ####[facility] [id number] [place], BLOOD CULTUREon 03-19-2021 Bacteria identified Cx Nom (Bld) C BLOOD: No Growth Normal [facility] Comment on above: Performed By: #### C BLOOD ####[facility] Wjqnyqduw7318 [place], [place] BLOOD GAS, ARTERIALon 2020 CR BARI 3.6 mmol/L High -2.0-2.0 [facility] Comment on above: Performed By: #### C R BGA ####[facility] [id number] [place], CR PCO2 35.0 mm Hg Normal 35.0-45.0 The [facility] Comment on above: Performed By: #### C R BGA ####[facility] [id number] [place], CR PHA 7.490 High 7.35-7.45 [facility] Comment on above: Performed By: #### C R BGA ####[facility] [id number] [place], CR PO2 82 mm Hg Normal 80-100 [facility] Comment on above: Performed By: #### C R BGA ####[facility] [id number] [place] [address], FIO2 (CATEGORY) 5 LPM Normal [facility] Comment on above: Performed By: #### C R BGA ####[facility] [id number] [place] [address], HCO3 (Bld) [Moles/Vol] 26 mmol/L Normal 22-28 e [facility] Comment on above: Performed By: #### C R BGA ####[facility] [id number] [place] [address], MODE Nasal Canula Normal [facility] Comment on above: Performed By: #### C R BGA ####[facility] [id number] [place] [address], Oxygen saturation in Blood 96.9 % Normal >=95.1 [facility] Comment on above: Performed By: #### C R BGA ####[facility] [id number] [place] [address], CR BARI 3.9 mmol/L High -2.0-2.0 [facility] Comment on above: Performed By: #### C R BGA ####[facility] [id number] [place] [address], CR PCO2 32.4 mm Hg Low 35.0-45.0 [facility] Comment on above: Performed By: #### C R BGA ####[facility] [id number] [place] [address], CR PHA 7.516 High 7.35-7.45 [facility] Comment on above: Performed By: #### C R BGA ####[facility] [id number] [place], CR PO2 72 mm Hg Low 80-100 [facility] Comment on above: Performed By: #### C R BGA ####[facility] [id number] [place], FIO2 (CATEGORY) 5 LPM Normal [facility] Comment on above: Performed By: #### C R BGA ####[facility] [id number] [place], HCO3 (Bld) [Moles/Vol] 26 mmol/L Normal 22-28 [facility] Comment on above: Performed By: #### C R BGA ####[facility] [id number] [place], MODE Nasal Canula Normal [facility] Comment on above: Performed By: #### Deborah R BGA ####[facility] [id number] [place] [address], Oxygen saturation in Blood 95.5 % Normal >=95.1 [facility] Comment on above: Performed By: #### C R BGA ####[facility] [id number] [place] [address], CBC WITH DIFFERENTIALon 03-04 Erythrocyte distribution width (RBC) [Ratio] 14.0 % Normal 11.5-14.5 [facility] Comment on above: Performed By: #### M DIFF, CBCDSAT ####[facility] [id number] [place], Hematocrit (Bld) [Volume fraction] 39.2 % Low 41.0-53.0 [facility] Comment on above: Performed By: #### M DIFF, CBCDSAT ####[facility] [id number] [place], Hemoglobin (Bld) [Mass/Vol] 12.8 g/dL Low 13.9-16.3 [facility] Comment on above: Performed By: #### M DIFF, CBCDSAT ####[facility] [id number] [place], MCH (RBC) [Entitic mass] 30.2 pg Normal 26.0-34.0 [facility] Comment on above: Performed By: #### M DIFF, CBCDSAT ####[facility] [id number] [place], MCHC (RBC) [Mass/Vol] 32.6 g/dL Normal 32.0-35.9 [facility] Comment on above: Performed By: #### M DIFF, CBCDSAT ####[facility] [id number] [place], MCV (RBC) [Entitic vol] 93 fL Normal 80-100 [facility] Comment on above: Performed By: #### M DIFF, CBCDSAT ####[facility] [id number] [place], MONOCYTE DISTRIBUTION WIDTH Normal [facility] Comment on above: Performed By: #### M DIFF, CBCDSAT ####[facility] [id number] [place], Platelet mean volume (Bld) [Entitic vol] 9.1 fL Normal 7.5-11.2 [facility] Comment on above: Performed By: #### M DIFF, CBCDSAT ####[facility] [id number] [place], Platelets (Bld) [#/Vol] 211 10*3/uL Normal 150-400 [facility] Comment on above: Performed By: #### M DIFF, CBCDSAT ####[facility] [id number] [place], RBC (Bld) [#/Vol] 4.24 10*6/uL Low 4.50-5.90 [facility] Comment on above: Performed By: #### M DIFF, CBCDSAT ####[facility] [id number] [place], WBC (Bld) [#/Vol] 22.0 10*3/uL High 4.5-11.5 [facility] Comment on above: Performed By: #### M DIFF, CBCDSAT ####[facility] [id number] [place], [place], CT CHEST W/ CONTRASTon 03-19 CT CHEST W/ CONTRAST Normal [facility] HEAD W/O CONTRASTon 03-19 CT HEAD W/O CONTRAST Normal [facility] Care Plan Noteon 03-19-2021 Adjutant General Authentication Interface Message Text Normal [facility] Consultson 03-19-2021 Adjutant General Authentication Interface Message Text Normal [facility] GLUCOSE, FINGERSTICK-IN OFFI CEon 03-19-2021 Glucose [Mass/Vol] 330 mg/dL High 80-116 [facility] Comment on above: Result Comment: Salvador jovel RN, APN, MD Performed By: #### 8 2948 ####NURSING GLUCOSE SZSOJWK5419 [place], [address] Glucose [Mass/Vol] 316 mg/dL High 80-116 [facility] Comment on above: Result Comment: Foll ow Protocol Performed By: #### 8 2948 ####NURSING GLUCOSE RXLHLET0870 [place], [address] Glucose [Mass/Vol] 282 mg/dL High 80-116 [facility] Comment on above: Result Comment: Salvador jovel RN, APN, MD Performed By: #### 8 2948 ####NURSING GLUCOSE [id number] [place], [address] HEPATIC FUNCTION PANELon Albumin [Mass/Vol] 2.8 g/dL Low 3.4-5.1 [facility] Comment on above: Performed By: #### H EDUAR TRIG ####[facility] [id number] [place], ALK 63 IU/L Normal 40-200 [facility] Comment on above: Performed By: #### H EDUAR TRIG ####[facility] [id number] [place], ALT [Catalytic activity/Vol] 44 U/L High 7-40 [facility] Comment on above: Performed By: #### H EDUAR TRIG ####[facility] [id number] [place], AST [Catalytic activity/Vol] 55 U/L High 7-40 [facility] Comment on above: Result Comment: Hemo lysis present Performed By: #### H EPAJORGE ALBERTO, TRIG ####S PATHOLOGY [id number] [place], Bilirubin [Mass/Vol] 2.1 mg/dL High 0.1-1.5 [facility] Comment on above: Performed By: #### H EPATIC, TRIG ####S PATHOLOGY [id number] [place], Bilirubin.direct [Mass/Vol] 0.60 mg/dL High 0.10-0.30 [facility] Comment on above: Performed By: #### H EDUAR, TRIG ####[facility] RFKSGAHAEL[address] [place] [address], Protein [Mass/Vol] 5.8 g/dL Normal 5.7-8.1 [facility] Comment on above: Performed By: #### H EPAJORGE ALBERTO, TRIG ####[facility] [id number] [place] [address], MAGNESIUMon 03-19-2021 Magnesium [Mass/Vol] 2.3 mg/dL Normal 1.6-2.8 [facility] Comment on above: Result Comment: Hemo lysis present Performed By: #### C H8, MG, PHOS ####S PATHOLOGY [id number] [place], Magnesium [Mass/Vol] 1.6 mg/dL Normal 1.6-2.8 [facility] Comment on above: Performed By: #### C H8, MG, PHOS ####S PATHOLOGY [id number] [place], MANUAL DIFF AND MORPHon 03-04 CELLS COUNTED TOTAL # IN BLOOD 100 Normal [facility] Comment on above: Performed By: #### M DIFF, CBCDSAT ####S PATHOLOGY [id number] [place], MONOCYTES % BY MANUAL COUNT 8.0 % Normal 2.0-11.0 [facility] Comment on above: Performed By: #### M DIFF, CBCDSAT ####[facility] [id number] [place] [address], MONOCYTES ABS BY MANUAL COUNT 1.76 K/uL High 0.20-1.00 [facility] Comment on above: Performed By: #### M DIFF, CBCDSAT ####[facility] [id number] [place] [address], NEUTROPHILS % BY MANUAL COUNT 92.0 % High 31.0-76.0 [facility] Comment on above: Performed By: #### M DIFF, CBCDSAT ####[facility] [id number] [place] [address], NEUTROPHILS ABS BY MANUAL COUNT 20.24 K/uL High 1.50-8.00 [facility] Comment on above: Performed By: #### M DIFF, CBCDSAT ####[facility] [id number] [place] [address], POLYCHROMASIA Slight Normal [facility] Comment on above: Performed By: #### M DIFF, CBCDSAT ####[facility] [id number] [place] [address], MRSA SCREENon 03-19-2021 MRSA DNA MICHELLE+probe Ql (Unsp spec) CMR: No methicillin resistant Staphylococcus aureus isolated. Normal No methicillin resistant Staphylococcus aureus isolated. [facility] Comment on above: Performed By: #### C MR ####[facility] [address] [place], [place] [address] PARTIAL THROMBOPLASTIN TIMEo n 03-19-2021 aPTT Coag (Bld) [Time] 64 s High 25-37 Th e [facility] Comment on above: Performed By: #### A PTT ####[facility] RIHBZRAONI[address] [place] [address], aPTT Coag (Bld) [Time] 36 s Normal 25-37 Th e [facility] Comment on above: Performed By: #### A PTT ####[facility] [id number] [place] [address], PHOSPHORUSon 03-19-2021 Phosphate [Mass/Vol] 2.2 mg/dL Low 2.3-4.2 [facility] Comment on above: Performed By: #### C H8, MG, PHOS ####[facility] [id number] [place], Phosphate [Mass/Vol] 1.5 mg/dL Low 2.3-4.2 [facility] Comment on above: Performed By: #### C H8, MG, PHOS ####[facility] PHKIEKQALI4003 [place], Procedureson 03-19-2021 Adjutant General Authentication Interface Message Text Normal [facility] Progress Noteson 03-19-2021 Adjutant General Authentication Interface Message Text Dr Rebollar notified of critical Potassium of 7.8 hemolyzed, read back result. Will continue to monitor. Normal [facility] Adjutant General Authentication Interface Message Text Normal [facility] RESPIRATORY CULTURE, MISCon 03-19-2021 RESPIRATORY CULTURE, MISC Normal [facility] Comment on above: Performed By: #### C RESP ####[facility] Axvrgxsrb4795 [place], [place] TRIGLYCERIDESon 03-19-2021 Triglyceride [Mass/Vol] 161 mg/dL High <151 [facility] Comment on above: Performed By: #### H EPATIC, TRIG ####[facility] [id number] [place], XR CHEST 1 VIEW AP OR PAon XR CHEST 1 VIEW AP OR PA Normal [facility] BASIC METABOLIC PANELon 03-04 Anion gap [Moles/Vol] 16 mmol/L Normal 10-20 [facility] Comment on above: Performed By: #### P HOS, MG, CH8 ####[facility] [id number] [place], Calcium [Mass/Vol] 8.6 mg/dL Normal 8.4-10.4 [facility] Comment on above: Performed By: #### P HOS, MG, CH8 ####[facility] [id number] [place], Chloride [Moles/Vol] 103 mmol/L Normal 97-111 [facility] Comment on above: Performed By: #### P JOHN MG, CH8 ####[facility] [id number] [place], CO2 [Moles/Vol] 24 mmol/L Normal 21-30 [facility] Comment on above: Performed By: #### P JOHN MG, CH8 ####S PATHOLOGY PHRFCZVZID4038 [place], Creatinine [Mass/Vol] 1.04 mg/dL Normal 0.80-1.30 [facility] Comment on above: Performed By: #### Martha LOPEZ MG, CH8 ####[facility] [id number] [place], ESTIMATED GFR (CKD-EPI) 70 mL/min/1.73sqm Normal >=60 [facility] Comment on above: Performed By: #### Martha LOPEZ MG, CH8 ####S PATHOLOGY [id number] [place], Glucose [Mass/Vol] 214 mg/dL High 80-116 [facility] Comment on above: Performed By: #### Martha LOPEZ MG, CH8 ####S PATHOLOGY RWVTVHXLZM[address] [place] [address], Potassium [Moles/Vol] 3.9 mmol/L Normal 3.3-5.3 [facility] Comment on above: Performed By: #### P JOHN MG, CH8 ####[facility] [id number] [place], Sodium [Moles/Vol] 139 mmol/L Normal 135-148 [facility] Comment on above: Performed By: #### P HOS MG, CH8 ####[facility] [id number] [place] [address], Urea nitrogen [Mass/Vol] 10 mg/dL Normal 8-22 [facility] Comment on above: Performed By: #### P HOS MG, CH8 ####[facility] [id number] [place], [place], CBC WITH DIFFERENTIALon 03-04 Erythrocyte distribution width (RBC) [Ratio] 13.8 % Normal 11.5-14.5 [facility] Comment on above: Performed By: #### M DIFF, CBCDSAT ####[facility] PATHOLOGY [id number] [place], Hematocrit (Bld) [Volume fraction] 38.3 % Low 41.0-53.0 [facility] Comment on above: Performed By: #### M DIFF, CBCDSAT ####[facility] PATHOLOGY [id number] [place], Hemoglobin (Bld) [Mass/Vol] 12.7 g/dL Low 13.9-16.3 [facility] Comment on above: Performed By: #### M DIFF, CBCDSAT ####[facility] PATHOLOGY [id number] [place] [address], MCH (RBC) [Entitic mass] 30.6 pg Normal 26.0-34.0 [facility] Comment on above: Performed By: #### M DIFF, CBCDSAT ####[facility] PATHOLOGY [id number] [place], MCHC (RBC) [Mass/Vol] 33.3 g/dL Normal 32.0-35.9 [facility] Comment on above: Performed By: #### M DIFF, CBCDSAT ####[facility] PATHOLOGY [id number] [place], MCV (RBC) [Entitic vol] 92 fL Normal 80-100 [facility] Comment on above: Performed By: #### M DIFF, CBCDSAT ####[facility] PATHOLOGY [id number] [place], MONOCYTE DISTRIBUTION WIDTH Normal [facility] Comment on above: Performed By: #### M DIFF, CBCDSAT ####[facility] PATHOLOGY [id number] [place], Platelet mean volume (Bld) [Entitic vol] 9.0 fL Normal 7.5-11.2 [facility] Comment on above: Performed By: #### M DIFF, CBCDSAT ####[facility] PWRYFCMEJN7217 [place], Platelets (Bld) [#/Vol] 209 10*3/uL Normal 150-400 [facility] Comment on above: Performed By: #### M DIFF, CBCDSAT ####[facility] JEEWCWLIJZ3242 [place], RBC (Bld) [#/Vol] 4.17 10*6/uL Low 4.50-5.90 [facility] Comment on above: Performed By: #### M DIFF, CBCDSAT ####[facility] RQSMIKWNTJ2011 [place], WBC (Bld) [#/Vol] 16.9 10*3/uL High 4.5-11.5 [facility] Comment on above: Performed By: #### M DIFF, CBCDSAT ####[facility] OHNPRVEKFT0397 [place], Care Plan Noteon 03-18-2021 [employer] Authentication Interface Message Text Normal [facility] GLUCOSE, FINGERSTICK-IN OFFI CEon 03-18-2021 Glucose [Mass/Vol] 234 mg/dL High 80-116 [facility] Comment on above: Performed By: #### 8 [id number] ####NURSING GLUCOSE RQVTBKU3667 [place], [address] Glucose [Mass/Vol] 216 mg/dL High 80-116 [facility] Comment on above: Result Comment: Salvador jovel RN, APN, MD Performed By: #### 8 2948 ####NURSING GLUCOSE WYMOYIH4694 [place], [address] Glucose [Mass/Vol] 197 mg/dL High 80-116 [facility] Comment on above: Result Comment: Salvador jovel RN, APN, MD Performed By: #### 8 294 ####NURSING GLUCOSE OLOEPHI4277 [place], [address] Glucose [Mass/Vol] 200 mg/dL High 80-116 [facility] Comment on above: Result Comment: Salvador jovel RN, APN, MD Performed By: #### 8 2948 ####NURSING GLUCOSE PADXGLZ8664 [place], [address] MAGNESIUMon 03-18-2021 Magnesium [Mass/Vol] 1.8 mg/dL Normal 1.6-2.8 [facility] Comment on above: Performed By: #### P HOS, MG, CH8 ####[facility] HAJAKLFPPI2591 [place], MANUAL DIFF AND MORPHon 03-04 ANISOCYTOSIS Slight Normal [facility] Comment on above: Performed By: #### M DIFF, CBCDSAT ####S PATHOLOGY [id number] [place], CELLS COUNTED TOTAL # IN BLOOD 100 Normal [facility] Comment on above: Performed By: #### M DIFF, CBCDSAT ####S PATHOLOGY NBVKIVJBCT7891 [place], LYMPHOCYTES % BY MANUAL COUNT 7.0 % Low 24.0-44.0 [facility] Comment on above: Performed By: #### M DIFF, CBCDSAT ####S PATHOLOGY OXQSBSCTUY4028 [place], LYMPHOCYTES ABS BY MANUAL COUNT 1.18 K/uL Normal 1.00-4.80 [facility] Comment on above: Performed By: #### M DIFF, CBCDSAT ####S PATHOLOGY BNIPSMJYAF3503 [place], MONOCYTES % BY MANUAL COUNT 11.0 % Normal 2.0-11.0 [facility] Comment on above: Performed By: #### M DIFF, CBCDSAT ####S PATHOLOGY AJJEPWWZOI3808 [place], MONOCYTES ABS BY MANUAL COUNT 1.86 K/uL High 0.20-1.00 [facility] Comment on above: Performed By: #### M DIFF, CBCDSAT ####[facility] NQBBZVNCOC2140 [place], NEUTROPHILS % BY MANUAL COUNT 82.0 % High 31.0-76.0 [facility] Comment on above: Performed By: #### M DIFF, CBCDSAT ####S PATHOLOGY SLVHWBQRAB4910 [place], NEUTROPHILS ABS BY MANUAL COUNT 13.86 K/uL High 1.50-8.00 [facility] Comment on above: Performed By: #### M DIFF, CBCDSAT ####S PATHOLOGY OTDLQDEBSX6974 [place], POLYCHROMASIA Slight Normal [facility] Comment on above: Performed By: #### M DIFF, CBCDSAT ####S PATHOLOGY LSURZLPJDY6251 [place], PARTIAL THROMBOPLASTIN TIMEo n 03-18-2021 aPTT Coag (Bld) [Time] 60 s High 25-37 Th e [facility] Comment on above: Performed By: #### A PTT ####[facility] VSSCNWOXNU4373 [place], PHOSPHORUSon 03-18-2021 Phosphate [Mass/Vol] 1.5 mg/dL Low 2.3-4.2 [facility] Comment on above: Performed By: #### P HOS ####S PATHOLOGY CFBIGRCLNJ7005 [place], Phosphate [Mass/Vol] 2.1 mg/dL Low 2.3-4.2 [facility] Comment on above: Performed By: #### P HOS, MG, CH8 ####S PATHOLOGY NQCUETVQFH0339 [place], Progress Noteson 03-18-2021 [employer] Authentication Interface Message Text Normal [facility] [employer] Authentication Interface Message Text Normal [facility] [employer] Authentication Interface Message Text Normal [facility] 1:1 Interactionon 03-17-2021 [employer]ant [employer] Authentication Interface Message Text Normal [facility] BASIC METABOLIC PANELon 03-04 Anion gap [Moles/Vol] 12 mmol/L Normal - [facility] Comment on above: Performed By: #### T RIG, CH8, HEPATIC, PHOS, MG ####[facility] OJYNUOSPQN4672 [place], Calcium [Mass/Vol] 8.0 mg/dL Low 8.4-10.4 [facility] Comment on above: Performed By: #### T RIG, CH8, HEPATIC, PHOS, MG ####[facility] BHVKXBUSYF6247 [place], Chloride [Moles/Vol] 107 mmol/L Normal 97-111 [facility] Comment on above: Performed By: #### T RIG, CH8, HEPATIC, PHOS, MG ####[facility] YOTPCLGIJA8924 [place], CO2 [Moles/Vol] 24 mmol/L Normal 21-30 [facility] Comment on above: Performed By: #### T RIG, CH8, HEPATIC, PHOS, MG ####[facility] RWIEXDPBPG1339 [place], Creatinine [Mass/Vol] 1.08 mg/dL Normal 0.80-1.30 [facility] Comment on above: Performed By: #### T RIG, CH8, HEPATIC, PHOS, MG ####[facility] [id number] [place], ESTIMATED GFR (CKD-EPI) 67 mL/min/1.73sqm Normal >=60 [facility] Comment on above: Performed By: #### T RIG, CH8, HEPATIC, PHOS, MG ####[facility] HOPUFWBTFB7502 [place], Glucose [Mass/Vol] 126 mg/dL High 80-116 [facility] Comment on above: Performed By: #### T RIG, CH8, HEPATIC, PHOS, MG ####[facility] EBNSVTGOBC7952 [place], Potassium [Moles/Vol] 4.0 mmol/L Normal 3.3-5.3 [facility] Comment on above: Performed By: #### T RIG, CH8, HEPATIC, PHOS, MG ####[facility] BTUQDPOAMQ9080 [place], Sodium [Moles/Vol] 139 mmol/L Normal 135-148 [facility] Comment on above: Performed By: #### T RIG, CH8, HEPATIC, PHOS, MG ####S PATHOLOGY WEKPJXRBLH3224 [place], Urea nitrogen [Mass/Vol] 13 mg/dL Normal 8-22 [facility] Comment on above: Performed By: #### T RIG, CH8, HEPATIC, PHOS, MG ####S PATHOLOGY [id number] [place], BLOOD GAS, ARTERIALon 2020 CR BARI -0.3 mmol/L Normal -2.0-2.0 [facility] Comment on above: Performed By: #### C R BGA ####[facility] PATHOLOGY [id number] [place] [address], CR PCO2 44.2 mm Hg Normal 35.0-45.0 [facility] Comment on above: Performed By: #### C R BGA ####[facility] PATHOLOGY [id number] [place] [address], CR PHA 7.366 Normal 7.35-7.45 [facility] Comment on above: Performed By: #### C R BGA ####[facility] PATHOLOGY BEHDRNFTQV[address] [place] [address], CR PO2 89 mm Hg Normal 80-100 [facility] Comment on above: Performed By: #### C R BGA ####[facility] PATHOLOGY UTUFQBTYVM8005 [place], FIO2 (CATEGORY) 40% Normal [facility] Comment on above: Performed By: #### C R BGA ####S PATHOLOGY EYNHVKFIEE0234 [place], HCO3 (Bld) [Moles/Vol] 25 mmol/L Normal 22-28 e [facility] Comment on above: Performed By: #### C R BGA ####S PATHOLOGY GNYTDBXIXF4281 [place], MODE Vent Normal [facility] Comment on above: Performed By: #### C R BGA ####S PATHOLOGY OAKVVRZGEA[address] [place] [address], Oxygen saturation in Blood 96.6 % Normal >=95.1 [facility] Comment on above: Performed By: #### C R BGA ####[facility] PATHOLOGY [id number] [place] [address], CBC WITH DIFFERENTIALon 03-04 Erythrocyte distribution width (RBC) [Ratio] 13.8 % Normal 11.5-14.5 [facility] Comment on above: Performed By: #### M DIFF, CBCDSAT ####[facility] PATHOLOGY JDHRJOWQAM874[address] [place] [address], Hematocrit (Bld) [Volume fraction] 35.0 % Low 41.0-53.0 [facility] Comment on above: Performed By: #### M DIFF, CBCDSAT ####[facility] PATHOLOGY UNFIGCRIOF[address] [place] [address], Hemoglobin (Bld) [Mass/Vol] 11.9 g/dL Low 13.9-16.3 [facility] Comment on above: Performed By: #### M DIFF, CBCDSAT ####[facility] PATHOLOGY [id number] [place], MCH (RBC) [Entitic mass] 30.9 pg Normal 26.0-34.0 [facility] Comment on above: Performed By: #### M DIFF, CBCDSAT ####[facility] PATHOLOGY [id number] [place] [address], MCHC (RBC) [Mass/Vol] 34.0 g/dL Normal 32.0-35.9 [facility] Comment on above: Performed By: #### M DIFF, CBCDSAT ####[facility] PATHOLOGY [id number] [place], MCV (RBC) [Entitic vol] 91 fL Normal 80-100 [facility] Comment on above: Performed By: #### M DIFF, CBCDSAT ####[facility] PATHOLOGY UIDPQPZGVN8174 [place], MONOCYTE DISTRIBUTION WIDTH Normal [facility] Comment on above: Performed By: #### M DIFF, CBCDSAT ####[facility] PATHOLOGY [id number] [place], Platelet mean volume (Bld) [Entitic vol] 9.1 fL Normal 7.5-11.2 [facility] Comment on above: Performed By: #### M DIFF, CBCDSAT ####[facility] PATHOLOGY [id number] [place], Platelets (Bld) [#/Vol] 183 10*3/uL Normal 150-400 [facility] Comment on above: Performed By: #### M DIFF, CBCDSAT ####[facility] PATHOLOGY [id number] [place] [address], RBC (Bld) [#/Vol] 3.86 10*6/uL Low 4.50-5.90 [facility] Comment on above: Performed By: #### M DIFF, CBCDSAT ####[facility] PATHOLOGY [id number] [place] [address], WBC (Bld) [#/Vol] 10.7 10*3/uL Normal 4.5-11.5 [facility] Comment on above: Performed By: #### M DIFF, CBCDSAT ####[facility] PATHOLOGY RUBSKPCLVB[address] [place] [address], Basophils (Bld) [#/Vol] 0.06 10*3/uL Normal 0.00-0.20 [facility] Comment on above: Performed By: #### C BCDSAT ####[facility] PATHOLOGY TTBHLMMAMG[address] [place] [address], Basophils/100 WBC (Bld) 0.7 % Normal <=1.9 [facility] Comment on above: Performed By: #### C BCDSAT ####[facility] PATHOLOGY WIK[address]UOEYV[address] [place] [address], Eosinophils (Bld) [#/Vol] 0.38 10*3/uL Normal 0.00-0.70 [facility] Comment on above: Performed By: #### C BCDSAT ####[facility] PATHOLOGY LWRZHSZIJR[address] [place] [address], Eosinophils/100 WBC (Bld) 4.0 % Normal 0.1-4.0 [facility] Comment on above: Performed By: #### C VERAAT ####[facility] PATHOLOGY [id number] [place], Erythrocyte distribution width (RBC) [Ratio] 13.8 % Normal 11.5-14.5 [facility] Comment on above: Performed By: #### Deborah GAMEZAT ####[facility] PATHOLOGY [id number] [place], Hematocrit (Bld) [Volume fraction] 33.5 % Low 41.0-53.0 [facility] Comment on above: Performed By: #### Deborah GAMEZAT ####S PATHOLOGY JDYKYTGDJV[address] [place] [address], Hemoglobin (Bld) [Mass/Vol] 11.1 g/dL Low 13.9-16.3 [facility] Comment on above: Performed By: #### Deborah GAMEZAT ####[facility] PATHOLOGY EEFVBIIKAR722[address] [place] [address], Lymphocytes (Bld) [#/Vol] 0.98 10*3/uL Low 1.00-4.80 [facility] Comment on above: Performed By: #### Deborah GAMEZAT ####S PATHOLOGY GAOCMSXIOE[address] [place] [address], Lymphocytes/100 WBC (Bld) 10.3 % Low 24.0-44.0 [facility] Comment on above: Performed By: #### C VERAAT ####S PATHOLOGY [id number] [place], MCH (RBC) [Entitic mass] 30.2 pg Normal 26.0-34.0 [facility] Comment on above: Performed By: #### C VERAAT ####S PATHOLOGY WBLYSANCXC2793 [place], MCHC (RBC) [Mass/Vol] 33.0 g/dL Normal 32.0-35.9 [facility] Comment on above: Performed By: #### C VERAAT ####[facility] [id number] [place], MCV (RBC) [Entitic vol] 91 fL Normal 80-100 [facility] Comment on above: Performed By: #### Deborah GAMEZAT ####[facility] PATHOLOGY [id number] [place], MONOCYTE DISTRIBUTION WIDTH Normal [facility] Comment on above: Performed By: #### Deborah GAMEZAT ####[facility] PATHOLOGY [id number] [place], Monocytes (Bld) [#/Vol] 1.19 10*3/uL High 0.20-1.00 [facility] Comment on above: Performed By: #### Deborah GAMEZAT ####[facility] PATHOLOG[facility] [id number] [place], Monocytes/100 WBC (Bld) 12.4 % High 2.0-11.0 [facility] Comment on above: Performed By: #### Deborah GAMEZAT ####[facility] PATHOLOGY [id number] [place], Neutrophils (Bld) [#/Vol] 6.95 10*3/uL Normal 1.50-8.00 [facility] Comment on above: Performed By: #### Deborah GAMEZAT ####[facility] PATHOLOG[facility] [id number] [place], Neutrophils/100 WBC (Bld) 72.7 % Normal 31.0-76.0 [facility] Comment on above: Performed By: #### Deborah GAMEZAT ####S PATHOLOGY [id number] [place], Platelet mean volume (Bld) [Entitic vol] 8.9 fL Normal 7.5-11.2 [facility] Comment on above: Performed By: #### Deborah GAMEZAT ####S PATHOLOGY DIBTXCHRUU9178 [place], Platelets (Bld) [#/Vol] 174 10*3/uL Normal 150-400 [facility] Comment on above: Performed By: #### C BCDSAT ####[facility] AWWOMIRRKX6167 [place], RBC (Bld) [#/Vol] 3.67 10*6/uL Low 4.50-5.90 [facility] Comment on above: Performed By: #### C BCDSAT ####[facility] WOMGNBGITB3066 [place], WBC (Bld) [#/Vol] 9.6 10*3/uL Normal 4.5-11.5 [facility] Comment on above: Performed By: #### C BCDSAT ####S PATHOLOGY KGFOKPKBYG5951 [place], Care Plan Noteon 03-17-2021 [employer] Authentication Interface Message Text Normal [facility] Consultson 03-17-2021 [employer] Authentication Interface Message Text Normal [facility] [employer] Authentication Interface Message Text Normal [facility] GLUCOSE, FINGERSTICK-IN OFFI CEon 03-17-2021 Glucose [Mass/Vol] 199 mg/dL High 80-116 [facility] Comment on above: Result Comment: Salvador jovel RN, APN, MD Performed By: #### 8 2948 ####NURSING GLUCOSE XWNJCSA8768 [place], [address] Glucose [Mass/Vol] 144 mg/dL High 80-116 [facility] Comment on above: Result Comment: Foll ow Protocol Performed By: #### 8 2948 ####NURSING GLUCOSE NGWXJFY5522 [place], [address] Glucose [Mass/Vol] 131 mg/dL High 80-116 [facility] Comment on above: Result Comment: Foll ow Protocol Performed By: #### 8 2948 ####NURSING GLUCOSE DCKJOIN7273 [place], [address] Glucose [Mass/Vol] 107 mg/dL Normal 80-116 [facility] Comment on above: Result Comment: Salvador jovel RN, APN, MD Performed By: #### 8 2948 ####NURSING GLUCOSE DECVCQZ7616 [place], [address] HEPATIC FUNCTION PANELon Albumin [Mass/Vol] 2.6 g/dL Low 3.4-5.1 [facility] Comment on above: Performed By: #### T RIG, CH8, HEPATIC, PHOS, MG ####[facility] TJIGDZCOBO1202 [place], ALK 64 IU/L Normal 40-200 [facility] Comment on above: Performed By: #### T RIG, CH8, HEPATIC, PHOS, MG ####[facility] LVCIZHTFHN1701 [place], ALT [Catalytic activity/Vol] 30 U/L Normal 7-40 [facility] Comment on above: Performed By: #### T RIG, CH8, HEPATIC, PHOS, MG ####[facility] AQCTNEGXFT1333 [place], AST [Catalytic activity/Vol] 25 U/L Normal 7-40 [facility] Comment on above: Performed By: #### T RIG, CH8, HEPATIC, PHOS, MG ####[facility] PATH[facility] XRCUBTKIOK6730 [place], Bilirubin [Mass/Vol] 1.2 mg/dL Normal 0.1-1.5 [facility] Comment on above: Performed By: #### T RIG, CH8, HEPATIC, PHOS, MG ####[facility] NXQMIZVFQU8950 [place], Bilirubin.direct [Mass/Vol] 0.50 mg/dL High 0.10-0.30 [facility] Comment on above: Performed By: #### T RIG, CH8, HEPATIC, PHOS, MG ####[facility] VWCIBFYDJN4927 [place], Protein [Mass/Vol] 5.4 g/dL Low 5.7-8.1 [facility] Comment on above: Performed By: #### T RIG, CH8, HEPATIC, PHOS, MG ####[facility] YZMGBNNWQA8675 [place], MAGNESIUMon 03-17-2021 Magnesium [Mass/Vol] 2.1 mg/dL Normal 1.6-2.8 [facility] Comment on above: Performed By: #### T RIG, CH8, HEPATIC, PHOS, MG ####S PATHOLOGY CNLDYVKUNU8506 [place], MANUAL DIFF AND MORPHon 10- BASOPHILS % BY MANUAL COUNT 1.0 % Normal <=1.9 [facility] Comment on above: Performed By: #### M DIFF, CBCDSAT ####S PATHOLOGY MDBDMTUYRI6423 [place], BASOPHILS ABS BY MANUAL COUNT 0.11 K/uL Normal 0.00-0.20 [facility] Comment on above: Performed By: #### M DIFF, CBCDSAT ####S PATHOLOGY OLWPXWXWEW5115 [place], CELLS COUNTED TOTAL # IN BLOOD 100 Normal [facility] Comment on above: Performed By: #### M DIFF, CBCDSAT ####S PATHOLOGY MBPJTDISAV4408 [place], EOSINOPHILS % BY MANUAL COUNT 1.0 % Normal 0.1-4.0 [facility] Comment on above: Performed By: #### M DIFF, CBCDSAT ####[facility] PATHOLOGY PLTHPMXQAE8332 [place], EOSINOPHILS ABS BY MANUAL COUNT 0.11 K/uL Normal 0.00-0.70 [facility] Comment on above: Performed By: #### M DIFF, CBCDSAT ####S PATHOLOGY TELDEEQEMR6580 [place], LYMPHOCYTES % BY MANUAL COUNT 11.0 % Low 24.0-44.0 [facility] Comment on above: Performed By: #### M DIFF, CBCDSAT ####S PATHOLOGY WNCRITCOEF8256 [place], LYMPHOCYTES ABS BY MANUAL COUNT 1.18 K/uL Normal 1.00-4.80 [facility] Comment on above: Performed By: #### M DIFF, CBCDSAT ####S PATHOLOGY ZRDPUYVELT7832 [place], METAMYELOCYTES % BY MANUAL COUNT 3 % High <0 [facility] Comment on above: Performed By: #### M DIFF, CBCDSAT ####S PATHOLOGY SQOBAXIOAJ8323 [place], METAMYELOCYTES ABS BY MANUAL COUNT 0.32 K/uL High <0.01 [facility] Comment on above: Performed By: #### M DIFF, CBCDSAT ####S PATHOLOGY FRBHINYXPA5867 [place], MONOCYTES % BY MANUAL COUNT 7.0 % Normal 2.0-11.0 [facility] Comment on above: Performed By: #### M DIFF, CBCDSAT ####S PATHOLOGY XJEEIXIADJ1305 [place], MONOCYTES ABS BY MANUAL COUNT 0.75 K/uL Normal 0.20-1.00 [facility] Comment on above: Performed By: #### M DIFF, CBCDSAT ####[facility] PATHOLOGY [id number] [place], NEUTROPHILS % BY MANUAL COUNT 77.0 % High 31.0-76.0 [facility] Comment on above: Performed By: #### M DIFF, CBCDSAT ####[facility] PATHOLOGY PKDTWKIOSM0259 [place], NEUTROPHILS ABS BY MANUAL COUNT 8.24 K/uL High 1.50-8.00 [facility] Comment on above: Performed By: #### M DIFF, CBCDSAT ####S PATHOLOGY OEUQQZSFNS0061 [place], RBC MORPHOLOGY Normal Normal [facility] Comment on above: Performed By: #### M DIFF, CBCDSAT ####S PATHOLOGY RPCHMRCYWF6190 [place], PARTIAL THROMBOPLASTIN TIMEo n 03-17-2021 aPTT Coag (Bld) [Time] 68 s High 25-37 Th e [facility] Comment on above: Performed By: #### A PTT ####[facility] FCMEPZTUDQ5600 [place], PHOSPHORUSon 03-17-2021 Phosphate [Mass/Vol] 3.6 mg/dL Normal 2.3-4.2 [facility] Comment on above: Performed By: #### T RIG, CH8, HEPATIC, PHOS, MG ####[facility] [id number] [place], [place], Progress Noteson 03-17-2021 Adjutant General Authentication Interface Message Text Normal [facility] Adjutant General Authentication Interface Message Text Normal [facility] Adjutant General Authentication Interface Message Text Normal [facility] Adjutant General Authentication Interface Message Text Normal [facility] TRIGLYCERIDESon 03-17-2021 Triglyceride [Mass/Vol] 191 mg/dL High <151 [facility] Comment on above: Performed By: #### T RIG, CH8, HEPATIC, PHOS, MG ####[facility] SJYAREGIZY9173 [place], [place], 1:1 Interactionon 03-16-2021 Adjutant General Authentication Interface Message Text Normal [facility] BASIC METABOLIC PANELon 03-04 Anion gap [Moles/Vol] 16 mmol/L Normal 10-20 [facility] Comment on above: Performed By: #### C H8, MG, TRIG, PHOS, VITB12 ####S PATHOLOGY HINMMQGGIS4511 [place], Calcium [Mass/Vol] 8.1 mg/dL Low 8.4-10.4 [facility] Comment on above: Performed By: #### C H8, MG, TRIG, PHOS, VITB12 ####[facility] HAWGQUAJMI7160 [place], Chloride [Moles/Vol] 105 mmol/L Normal 97-111 [facility] Comment on above: Performed By: #### C H8, MG, TRIG, PHOS, VITB12 ####[facility] OUTJSCASVK9075 [place], CO2 [Moles/Vol] 24 mmol/L Normal 21-30 [facility] Comment on above: Performed By: #### C H8, MG, TRIG, PHOS, VITB12 ####[facility] YXQENSDTZI7084 [place], Creatinine [Mass/Vol] 1.16 mg/dL Normal 0.80-1.30 [facility] Comment on above: Performed By: #### C H8, MG, TRIG, PHOS, VITB12 ####[facility] PATHOLOGY POSADHWKSG9166 [place], ESTIMATED GFR (CKD-EPI) 61 mL/min/1.73sqm Normal >=60 [facility] Comment on above: Performed By: #### C H8, MG, TRIG, PHOS, VITB12 ####[facility] PATHOLOGY VABJOMSSDG2146 [place], Glucose [Mass/Vol] 99 mg/dL Normal 80-116 [facility] Comment on above: Performed By: #### C H8, MG, TRIG, PHOS, VITB12 ####[facility] PATHOLOGY LJYOLEFWSU[address] [place] [address], Potassium [Moles/Vol] 3.5 mmol/L Normal 3.3-5.3 [facility] Comment on above: Performed By: #### C H8, MG, TRIG, PHOS, VITB12 ####[facility] PATHOLOGY [address]LUHGEBYSI[address] [place] [address], Sodium [Moles/Vol] 141 mmol/L Normal 135-148 [facility] Comment on above: Performed By: #### Deborah H8, MG, TRIG, PHOS, VITB12 ####[facility] PATHOLOGY KDOHUKPANQ5280 [place], Urea nitrogen [Mass/Vol] 13 mg/dL Normal 8-22 [facility] Comment on above: Performed By: #### C H8, MG, TRIG, PHOS, VITB12 ####[facility] PATHOLOGY EGAWEMVION4332 [place], CBC WITH DIFFERENTIALon 03-04 Erythrocyte distribution width (RBC) [Ratio] 13.9 % Normal 11.5-14.5 [facility] Comment on above: Performed By: #### C ALEXANDRO APARICIO ####[facility] PATHOLOGY PHZQIQVGIW4031 [place], Hematocrit (Bld) [Volume fraction] 33.3 % Low 41.0-53.0 [facility] Comment on above: Performed By: ###ALEXANDRO BURNHAM ####[facility] PATHOLOGY CSYLERIZYM8361 [place], Hemoglobin (Bld) [Mass/Vol] 11.2 g/dL Low 13.9-16.3 [facility] Comment on above: Performed By: ###ALEXANDRO BURNHAM ####[facility] PATHOLOGY CHASNRXXMP4725 [place], MCH (RBC) [Entitic mass] 30.8 pg Normal 26.0-34.0 [facility] Comment on above: Performed By: ###ALEXANDRO BURNHAM ####[facility] PATHOLOGY JPFCLMAWOX[address] [place] [address], MCHC (RBC) [Mass/Vol] 33.7 g/dL Normal 32.0-35.9 [facility] Comment on above: Performed By: ###ALEXANDRO BURNHAM ####[facility] PATHOLOGY TZTZUHOLBR5934 [place], MCV (RBC) [Entitic vol] 91 fL Normal 80-100 [facility] Comment on above: Performed By: ###ALEXANDRO BURNHAM ####[facility] PATHOLOGY VCXLZLUEKG[address] [place] [address], MONOCYTE DISTRIBUTION WIDTH Normal [facility] Comment on above: Performed By: ###ALEXANDRO BURNHAM ####[facility] PATHOLOGY QYMRNLMBEB7367 [place], Platelet mean volume (Bld) [Entitic vol] 8.9 fL Normal 7.5-11.2 [facility] Comment on above: Performed By: ###ALEXANDRO BURNHAM ####Ck PATHOLOGY IWPHDMACVX[address] [place] [address], Platelets (Bld) [#/Vol] 175 10*3/uL Normal 150-400 [facility] Comment on above: Performed By: ###ALEXANDRO BURNHAM ####S PATHOLOGY FIFCUXOWPD5743 [place], RBC (Bld) [#/Vol] 3.65 10*6/uL Low 4.50-5.90 [facility] Comment on above: Performed By: #### ALEXANDRO MCCORMACK ####S PATHOLOGY THIHAIWDDZ1999 [place], WBC (Bld) [#/Vol] 8.7 10*3/uL Normal 4.5-11.5 [facility] Comment on above: Performed By: ###ALEXANDRO BURNHAM ####[facility] PATHOLOGY XJYETYDCHF7998 [place], Erythrocyte distribution width (RBC) [Ratio] 13.7 % Normal 11.5-14.5 [facility] Comment on above: Performed By: #### ALEXANDRO MCCORMACK ####[facility] PATHOLOGY YKDWADFQWZ8962 [place], Hematocrit (Bld) [Volume fraction] 35.2 % Low 41.0-53.0 [facility] Comment on above: Performed By: ###ALEXANDRO BURNHAM ####[facility] PATHOLOGY WYRMLOCOCT8813 [place], Hemoglobin (Bld) [Mass/Vol] 11.9 g/dL Low 13.9-16.3 [facility] Comment on above: Performed By: ###ALEXANDRO BURNHAM ####[facility] PATHOLOGY WUDXXDFRXZ4867 [place], MCH (RBC) [Entitic mass] 31.2 pg Normal 26.0-34.0 [facility] Comment on above: Performed By: ###ALEXANDRO BURNHAM ####S PATHOLOGY TRJGSUFNFV9474 [place], MCHC (RBC) [Mass/Vol] 33.8 g/dL Normal 32.0-35.9 [facility] Comment on above: Performed By: #### ALEXANDRO MCCORMACK ####[facility] PATHOLOGY BOIBIBSWJS9453 [place], MCV (RBC) [Entitic vol] 92 fL Normal 80-100 [facility] Comment on above: Performed By: ###ALEXANDRO BURNHAM ####[facility] PATHOLOGY BPGMXXCISH9674 [place], MONOCYTE DISTRIBUTION WIDTH Normal [facility] Comment on above: Performed By: #### ALEXANDRO MCCORMACK ####[facility] PATHOLOGY BNJEMGYDAX8499 [place], Platelet mean volume (Bld) [Entitic vol] 9.3 fL Normal 7.5-11.2 [facility] Comment on above: Performed By: ###ALEXANDRO BURNHAM ####Ck PATHOLOGY FGFJRFHPGA2085 [place], Platelets (Bld) [#/Vol] 171 10*3/uL Normal 150-400 [facility] Comment on above: Performed By: ###ALEXANDRO BURNHAM ####[facility] PATHOLOGY PFFHVGJQRY3209 [place], RBC (Bld) [#/Vol] 3.83 10*6/uL Low 4.50-5.90 [facility] Comment on above: Performed By: ###ALEXANDRO BURNHAM ####[facility] PATHOLOGY OKRCVUDLIG4397 [place], WBC (Bld) [#/Vol] 8.7 10*3/uL Normal 4.5-11.5 [facility] Comment on above: Performed By: ###ALEXANDRO BURNHAM ####[facility] PATHOLOGY MWDBLBMDQZ3207 [place], Basophils (Bld) [#/Vol] 0.04 10*3/uL Normal 0.00-0.20 [facility] Comment on above: Performed By: ###Antonia APARICIO ####S PATHOLOGY GIQXZUHGVU7345 [place], Basophils/100 WBC (Bld) 0.5 % Normal <=1.9 [facility] Comment on above: Performed By: ###Antonia APARICIO ####[facility] PATHOLOGY UKRNZZLNXL4511 [place], Eosinophils (Bld) [#/Vol] 0.25 10*3/uL Normal 0.00-0.70 [facility] Comment on above: Performed By: #### C BCDSAT ####[facility] PATHOLOGY VOLVNZTOAI4293 [place], Eosinophils/100 WBC (Bld) 3.3 % Normal 0.1-4.0 [facility] Comment on above: Performed By: #### C BCDSAT ####[facility] PATHOLOGY OSJGUWYGHY2831 [place], Erythrocyte distribution width (RBC) [Ratio] 13.6 % Normal 11.5-14.5 [facility] Comment on above: Performed By: #### C BCDSAT ####[facility] PATHOLOGY KWBQGOLVLK1824 [place], Hematocrit (Bld) [Volume fraction] 32.8 % Low 41.0-53.0 [facility] Comment on above: Performed By: #### C BCDSAT ####[facility] PATHOLOGY KMMIQNWZMM4346 [place], Hemoglobin (Bld) [Mass/Vol] 10.9 g/dL Low 13.9-16.3 [facility] Comment on above: Performed By: #### C BCDSAT ####[facility] PATHOLOGY TNGVHAVONM1898 [place], Lymphocytes (Bld) [#/Vol] 1.19 10*3/uL Normal 1.00-4.80 [facility] Comment on above: Performed By: #### C BCDSAT ####[facility] PATHOLOGY CVYLCQSUKK5279 [place], Lymphocytes/100 WBC (Bld) 16.0 % Low 24.0-44.0 [facility] Comment on above: Performed By: #### C BCDSAT ####[facility] PATHOLOGY YSDGFEKBVM3505 [place], MCH (RBC) [Entitic mass] 30.6 pg Normal 26.0-34.0 [facility] Comment on above: Performed By: #### C BCDSAT ####[facility] PATHOLOGY QPGGBARGIP8436 [place], MCHC (RBC) [Mass/Vol] 33.3 g/dL Normal 32.0-35.9 [facility] Comment on above: Performed By: #### C BCDSAT ####[facility] PATHOLOGY CYZVJEHOHV3115 [place], MCV (RBC) [Entitic vol] 92 fL Normal 80-100 [facility] Comment on above: Performed By: #### C BCDSAT ####[facility] PATHOLOGY VLJFPQESET9654 [place], MONOCYTE DISTRIBUTION WIDTH Normal [facility] Comment on above: Performed By: #### C BCDSAT ####[facility] PATHOLOGY GFXVFNKUTT4774 [place], Monocytes (Bld) [#/Vol] 0.89 10*3/uL Normal 0.20-1.00 [facility] Comment on above: Performed By: #### C BCDSAT ####[facility] PATHOLOGY DJABUNMSMG4697 [place], Monocytes/100 WBC (Bld) 12.0 % High 2.0-11.0 [facility] Comment on above: Performed By: #### C BCDSAT ####[facility] PATHOLOGY LKCYGQZVTK7124 [place], Neutrophils (Bld) [#/Vol] 5.07 10*3/uL Normal 1.50-8.00 [facility] Comment on above: Performed By: #### C BCDSAT ####[facility] PATHOLOGY MTIPIZYCXY0010 [place], Neutrophils/100 WBC (Bld) 68.3 % Normal 31.0-76.0 [facility] Comment on above: Performed By: #### C BCDSAT ####S PATHOLOGY BYERLVSJBN8845 [place], Platelet mean volume (Bld) [Entitic vol] 9.0 fL Normal 7.5-11.2 [facility] Comment on above: Performed By: #### C BCDSAT ####S PATHOLOGY RLSBZYTOVP5750 [place], Platelets (Bld) [#/Vol] 155 10*3/uL Normal 150-400 [facility] Comment on above: Performed By: #### C VERAAT ####S PATHOLOGY OJDPCTRNAG2851 [place], RBC (Bld) [#/Vol] 3.57 10*6/uL Low 4.50-5.90 [facility] Comment on above: Performed By: #### C HUMERADSAT ####S PATHOLOGY POXDCPTMLT9431 [place], WBC (Bld) [#/Vol] 7.4 10*3/uL Normal 4.5-11.5 [facility] Comment on above: Performed By: #### Deborah GAMEZAT ####[facility] PATHOLOGY RAWYSRHDTY4280 [place], Care Plan Noteon 03-16-2021 Adjutant General Authentication Interface Message Text Normal [facility] Consultson 03-16-2021 Adjutant General Authentication Interface Message Text Normal [facility] GLUCOSE, FINGERSTICK-IN OFFI CEon 03-16-2021 Glucose [Mass/Vol] 94 mg/dL Normal 80-116 [facility] Comment on above: Result Comment: Salvador jovel RN, APN, MD Performed By: #### 8 2948 ####NURSING GLUCOSE BKXSILK1347 [place], [address] Glucose [Mass/Vol] 95 mg/dL Normal 80-116 [facility] Comment on above: Result Comment: Salvador jovel RN, APN, MD Performed By: #### 8 2948 ####NURSING GLUCOSE VLZUWFP1472 [place], [address] Glucose [Mass/Vol] 93 mg/dL Normal 80-116 [facility] Comment on above: Performed By: #### 8 2948 ####NURSING GLUCOSE SPDRKRD0008 [place], [address] MAGNESIUMon 03-16-2021 Magnesium [Mass/Vol] 2.2 mg/dL Normal 1.6-2.8 [facility] Comment on above: Performed By: #### C H8, MG, TRIG, PHOS, VITB12 ####[facility] EUQQWONTNQ4787 [place], MANUAL DIFF AND MORPHon 10-1 BANDS % BY MANUAL COUNT 1 % Normal <=10 [facility] Comment on above: Performed By: #### ALEXANDRO MCCORMACK ####S PATHOLOGY ASZFMGLSCX9141 [place], BANDS ABS BY MANUAL COUNT 0.09 K/uL High <0.01 [facility] Comment on above: Performed By: ###ALEXANDRO BURNHAM ####S PATHOLOGY NDZOMUFEGS[address] [place] [address], BASOPHILS % BY MANUAL COUNT 2.0 % High <=1.9 [facility] Comment on above: Performed By: ###ALEXANDRO BURNHAM ####S PATHOLOGY EHLLKDSVTK[address] [place] [address], BASOPHILS ABS BY MANUAL COUNT 0.17 K/uL Normal 0.00-0.20 [facility] Comment on above: Performed By: ###ALEXANDRO BURNHAM ####[facility] PATHOLOGY [address]ZGCZMDFWC[address] [place] [address], CELLS COUNTED TOTAL # IN BLOOD 100 Normal The [facility] Comment on above: Performed By: ###ALEXANDRO BURNHAM ####S PATHOLOGY AOPEXMTZPH8049 [place], EOSINOPHILS % BY MANUAL COUNT 3.0 % Normal 0.1-4.0 [facility] Comment on above: Performed By: ###ALEXANDRO BURNHAM ####S PATHOLOGY WCFORDCNKS[address] [place] [address], EOSINOPHILS ABS BY MANUAL COUNT 0.26 K/uL Normal 0.00-0.70 [facility] Comment on above: Performed By: ###ALEXANDRO BURNHAM ####S PATHOLOGY QOUPKUGPRY[address] [place] [address], LYMPHOCYTES % BY MANUAL COUNT 10.0 % Low 24.0-44.0 [facility] Comment on above: Performed By: #### ALEXANDRO MCCORMACK ####S PATHOLOGY GGWJFNJJUT0041 [place], LYMPHOCYTES ABS BY MANUAL COUNT 0.87 K/uL Low 1.00-4.80 [facility] Comment on above: Performed By: #### ALEXANDRO MCCORMACK ####[facility] BWHZSQYRNV3225 [place], METAMYELOCYTES % BY MANUAL COUNT 1 % High <0 [facility] Comment on above: Performed By: #### ALEXANDRO MCCORMACK ####S PATHOLOGY CZMCQVHQPH[address] [place] [address], METAMYELOCYTES ABS BY MANUAL COUNT 0.09 K/uL High <0.01 [facility] Comment on above: Performed By: #### ALEXANDRO MCCORMACK ####[facility] PATHOLOGY BEWLHJMHQA[address] [place] [address], MONOCYTES % BY MANUAL COUNT 10.0 % Normal 2.0-11.0 [facility] Comment on above: Performed By: ###ALEXANDRO BURNHAM ####[facility] PATHOLOGY WZVGEBBEWK[address] [place] [address], MONOCYTES ABS BY MANUAL COUNT 0.87 K/uL Normal 0.20-1.00 [facility] Comment on above: Performed By: #### ALEXANDRO MCCORMACK ####S PATHOLOGY QARRZICWKX2728 [place], NEUTROPHILS % BY MANUAL COUNT 73.0 % Normal 31.0-76.0 [facility] Comment on above: Performed By: ###ALEXANDRO BURNHAM ####[facility] THNZGYWPUF3922 [place], NEUTROPHILS ABS BY MANUAL COUNT 6.35 K/uL Normal 1.50-8.00 [facility] Comment on above: Performed By: #### ALEXANDRO MCCORMACK ####[facility] MGJCNTNAOO8579 [place], POLYCHROMASIA Slight Normal [facility] Comment on above: Performed By: #### ALEXANDRO MCCORMACK ####S PATHOLOGY JPEGEAXMTY7368 [place], BASOPHILS % BY MANUAL COUNT 1.0 % Normal <=1.9 [facility] Comment on above: Performed By: #### ALEXANDRO MCCORMACK ####S PATHOLOGY MWYJVBQZSS5297 [place], BASOPHILS ABS BY MANUAL COUNT 0.09 K/uL Normal 0.00-0.20 [facility] Comment on above: Performed By: #### ALEXANDRO MCCORMACK ####Ck PATHOLOGY CMJPQJCTOU2467 [place], CELLS COUNTED TOTAL # IN BLOOD 100 Normal [facility] Comment on above: Performed By: #### ALEXANDRO MCCORMACK ####Ck PATHOLOGY MNCRIYKKLX4392 [place], EOSINOPHILS % BY MANUAL COUNT 3.0 % Normal 0.1-4.0 [facility] Comment on above: Performed By: #### ALEXANDRO MCCORMACK ####[facility] PATHOLOGY FSLQEUOIMX9360 [place], EOSINOPHILS ABS BY MANUAL COUNT 0.26 K/uL Normal 0.00-0.70 [facility] Comment on above: Performed By: #### ALEXANDRO MCCORMACK ####S PATHOLOGY GMYZXDVHLH2454 [place], LYMPHOCYTES % BY MANUAL COUNT 14.0 % Low 24.0-44.0 [facility] Comment on above: Performed By: #### ALEXANDRO MCCORMACK ####S PATHOLOGY PPNSYUZXVX7807 [place], LYMPHOCYTES ABS BY MANUAL COUNT 1.22 K/uL Normal 1.00-4.80 [facility] Comment on above: Performed By: #### ALEXANDOR MCCORMACK ####S PATHOLOGY AVZIUBUFAN2764 [place], MONOCYTES % BY MANUAL COUNT 13.0 % High 2.0-11.0 [facility] Comment on above: Performed By: #### ALEXANDRO MCCORMACK ####[facility] PATHOLOGY FFHFQYZAHC1333 [place], MONOCYTES ABS BY MANUAL COUNT 1.13 K/uL High 0.20-1.00 [facility] Comment on above: Performed By: #### ALEXANDRO MCCORMACK ####[facility] PATHOLOGY MCULWZUAHH[address] [place] [address], NEUTROPHILS % BY MANUAL COUNT 69.0 % Normal 31.0-76.0 [facility] Comment on above: Performed By: #### ALEXANDRO MCCORMACK ####[facility] PATHOLOGY BAIDJCZZDP[address] [place] [address], NEUTROPHILS ABS BY MANUAL COUNT 6.00 K/uL Normal 1.50-8.00 [facility] Comment on above: Performed By: #### ALEXANDRO MCCORMACK ####[facility] PATHOLOGY OJXBTAGJEG[address] [place] [address], RBC MORPHOLOGY Normal Normal [facility] Comment on above: Performed By: #### ALEXANDRO MCCORMACK ####[facility] PATHOLOGY BJNEIMNRKL[address] [place] [address], PARTIAL THROMBOPLASTIN TIMEo n 03-16-2021 aPTT Coag (Bld) [Time] 72 s High - e [facility] Comment on above: Performed By: #### A PTT ####S PATHOLOGY BBZAUSMTEA[address] [place] [address], aPTT Coag (Bld) [Time] 70 s High -37 e [facility] Comment on above: Performed By: #### A PTT ####S PATHOLOGY XBXPKAEPOM[address] [place] [address], aPTT Coag (Bld) [Time] 65 s High - e [facility] Comment on above: Performed By: #### A PTT ####S PATHOLOGY LVSQTLQIHY[address] [place] [address], aPTT Coag (Bld) [Time] 62 s High 25-37 Th e [facility] Comment on above: Performed By: #### A PTT ####S PATHOLOGY VDBTCXJNGP5233 [place], PHOSPHORUSon 03-16-2021 Phosphate [Mass/Vol] 3.2 mg/dL Normal 2.3-4.2 [facility] Comment on above: Performed By: #### C H8, MG, TRIG, PHOS, VITB12 ####[facility] HJHLFMTTLX1976 [place], Procedureson 03-16-2021 Adjutant General Authentication Interface Message Text Normal [facility] Progress Noteson 03-16-2021 Adjutant General Authentication Interface Message Text Normal [facility] Adjutant General Authentication Interface Message Text Normal [facility] Adjutant General Authentication Interface Message Text Normal [facility] TRIGLYCERIDESon 03-16-2021 Triglyceride [Mass/Vol] 240 mg/dL High <151 [facility] Comment on above: Performed By: #### C H8, MG, TRIG, PHOS, VITB12 ####S PATHOLOGY DHKMNVJQGG3553 [place], URINALYSIS WITH REFLEX CULTU RE PERFORMABLEon 03-16-2021 Glucose Ql (U) Negative Normal Negative [facility] Comment on above: Order Comment: A [...] Performed By: #### u rinalysiswcul ####S PATHOLOGY QDPFYCCOUI3860 [place], #### C URINE ####[facility] Btlohtrgb3896 [place], [place] U APPEAR Clear Normal Clear [facility] Comment on above: Order Comment: A [...] around 50%) Performed By: #### u rinalysiswcul ####[facility] PATHOLOGY GEELLFLMCI0313 [place], #### C URINE ####[facility] Gdjjufrpa7120 [place], [place] U BACTERIA Few Normal [facility] Comment on above: Order Comment: A [...] around 50%) Performed By: #### u rinalysiswcul ####[facility] PATHOLOGY JYQOLMGQDO8935 [place], #### C URINE ####[facility] Zwrqhnaqy2631 [place], [place] U BILI Negative Normal Negative [facility] Comment on above: Order Comment: A [...] around 50%) Performed By: #### u rinalysiswcul ####[facility] PATHOLOGY QGOSZZVNDL5215 [place], #### C URINE ####[facility] Hxzbbsivh5015 [place], [place] U BLOOD Negative Normal Negative [facility] Comment on above: Order Comment: [...] around 50%) Performed By: #### u rinalysiswcul ####[facility] PATHOLOGY PQYAODIFJV3067 [place], #### C URINE ####[facility] [address] [place], [place] [address] U COLOR Yellow Normal Yellow [facility] [facility] Comment on above: Order Comment: [...] around 50%) Performed By: #### u rinalysiswcul ####[facility] PATHOLOG[facility] [id number] [place], [place], #### C URINE ####[facility] Zocmwxfnk2666 [place], [place] U KETONE Negative Normal Negative [facility] Comment on above: Order Comment: [...] around 50%) Performed By: #### u rinalysiswcul ####[facility] PATHOLOGY [id number] [place], [place], #### C URINE ####[facility] Bjvfqrpxe6076 [place], [place] U LEUK Trace Abnormal Negative [facility] Comment on above: Order Comment: [...] around 50%) Performed By: #### u rinalysiswcul ####[facility] PATHOLOGY [id number] [place], [place], #### C URINE ####[facility] [address]ds[address] [place], [place] [id number] U MUCOUS Present Normal [facility] Comment on above: Order Comment: [...] around 50%) Performed By: #### u rinalysiswcul ####[facility] PATHOLOGY RFGTINCRPG1917 [place], [place], #### C URINE ####[facility] Lliomgfwo6336 [place], [place] U NITRITE Negative Normal Negative [facility] Comment on above: Order Comment: [...] around 50%) Performed By: #### u rinalysiswcul ####[facility] PATHOLOG[facility] UQYSJHYGUF0128 [place], [place], #### C URINE ####[facility] [address]mrmhjddw[address] [place], [place] [id number] U PH 6.0 Normal 5.0-8.0 [facility] Comment on above: Order Comment: A [...] around 50%) Performed By: #### u rinalysiswcul ####[facility] PATHOLOG[facility] RCBTSNSROU6625 [place], #### C URINE ####[facility] Ztcbdnbvo9138 [place], [place] U PROTEIN Negative Normal Negative [facility] Comment on above: Order Comment: [...] around 50%) Performed By: #### u rinalysiswcul ####[facility] PATHOLOG[facility] ZTKLXHJSBR4285 [place], #### C URINE ####[facility] Mhjbbjqny4827 [place], [place] U RBC 0-2 Normal 0-2 [facility] Comment on above: Order Comment: [...] around 50%) Performed By: #### u rinalysiswcul ####[facility] JIVEUJJWQI5884 [place], #### C URINE ####[facility] Dzwizxwgm0210 [place], [place] U SG 1.011 Normal 1.005-1.030 [facility] Comment on above: Order Comment: [...] around 50%) Performed By: #### u rinalysiswcul ####[facility] PATHOLOG[facility] GRPVZJAJOH6191 [place], #### C URINE ####[facility] Ncqmgugjy8670 [place], [place] U UROBILI Negative Normal 0.1 - 1.0 [facility] Comment on above: Order Comment: [...] around 50%) Performed By: #### u rinalysiswcul ####[facility] PATHOLOG[facility] WJOZFSXDCD2776 [place], #### C URINE ####[facility] Xjlkgaobx[address] [place], [place] [address] U WBC 0-2 Normal 0-2 [facility] Comment on above: Order Comment: A [...] around 50%) Performed By: #### u rinalysiswcul ####[facility] PATH[facility] WEWRLOFVHN1545 [place], #### C URINE ####[facility] Pwetafflv[address] [place], [place] [id number] URINE CULTUREon 03-16-2021 Bacteria identified Cx Nom (U) C URINE: No growth of greater than 1,000 CFU/ml Normal [facility] Comment on above: Performed By: #### u rinalysiswcul ####[facility] PATH[facility] WDHDUGPOOI6184 [place], #### C URINE ####[address] VITAMIN B12 (CYANOCOBALAMIN) on 03-16-2021 Cobalamin (Vitamin B12) [Mass/Vol] 317 pg/mL Normal >300 [facility] Comment on above: Order Comment: <152 pg/mL - [id number] - 300 pg/mL- Insufficient>300 pg/mL - Sufficient Performed By: #### C H8, MG, TRIG, PHOS, VITB12 ####S PATHOLOGY JTUAEKUGEB8008 [place], XR CHEST 1 VIEW AP OR PAon 1 XR CHEST 1 VIEW AP OR PA Normal [facility] BASIC METABOLIC PANELon 03-04 Anion gap [Moles/Vol] 12 mmol/L Normal 10-20 [facility] Comment on above: Performed By: #### C H8 ####[facility] PATHOLOG[facility] SFZOYDLHES4936 [place], Calcium [Mass/Vol] 7.9 mg/dL Low 8.4-10.4 [facility] Comment on above: Performed By: #### Deborah H8 ####[facility] PATHOLOG[facility] WEBJPXTIWX1868 [place], Chloride [Moles/Vol] 102 mmol/L Normal 97-111 [facility] Comment on above: Performed By: #### Deborah H8 ####S PATHOLOGY WQBWTAOXEL6769 [place], CO2 [Moles/Vol] 25 mmol/L Normal 21-30 [facility] Comment on above: Performed By: #### Deborah H8 ####S PATHOLOGY TTTMRTXERV6367 [place], Creatinine [Mass/Vol] 1.15 mg/dL Normal 0.80-1.30 [facility] Comment on above: Performed By: #### Deborah H8 ####S PATHOLOGY QXQNNRXDGF4867 [place], ESTIMATED GFR (CKD-EPI) 62 mL/min/1.73sqm Normal >=60 [facility] Comment on above: Performed By: #### Deborah H8 ####S PATHOLOGY JRMBFMBVBZ0517 [place], Glucose [Mass/Vol] 113 mg/dL Normal 80-116 [facility] Comment on above: Performed By: #### C H8 ####S PATHOLOGY KKBVFQWOFK0065 [place], Potassium [Moles/Vol] 3.7 mmol/L Normal 3.3-5.3 [facility] Comment on above: Performed By: #### C H8 ####S PATHOLOGY GVRZIQYBPV6079 [place], Sodium [Moles/Vol] 135 mmol/L Normal 135-148 [facility] Comment on above: Performed By: #### C H8 ####S PATHOLOGY QUMZDWKQTE8575 [place], Urea nitrogen [Mass/Vol] 17 mg/dL Normal 8-22 [facility] Comment on above: Performed By: #### C H8 ####S PATHOLOGY [address]THZQTLKNW[address] [place] [address], Anion gap [Moles/Vol] 16 mmol/L Normal 10-20 [facility] Comment on above: Performed By: #### P HOS, MG, CH8 ####S PATHOLOGY NDPHGMHUQQ5493 [place], Calcium [Mass/Vol] 7.9 mg/dL Low 8.4-10.4 [facility] Comment on above: Performed By: #### P HOS, MG, CH8 ####S PATHOLOGY KZDACKSMBG1485 [place], Chloride [Moles/Vol] 103 mmol/L Normal 97-111 [facility] Comment on above: Performed By: #### P HOS, MG, CH8 ####S PATHOLOGY VTSOXFUKJE6760 [place], CO2 [Moles/Vol] 23 mmol/L Normal 21-30 [facility] Comment on above: Performed By: #### P HOS, MG, CH8 ####[facility] WCYWHTGLRP7317 [place], Creatinine [Mass/Vol] 1.12 mg/dL Normal 0.80-1.30 [facility] Comment on above: Performed By: #### P HOS, MG, CH8 ####S PATHOLOGY AYCDCSEXVW2202 [place], ESTIMATED GFR (CKD-EPI) 64 mL/min/1.73sqm Normal >=60 [facility] Comment on above: Performed By: #### P HOS, MG, CH8 ####S PATHOLOGY RCIMNXLWJO1419 [place], Glucose [Mass/Vol] 117 mg/dL High 80-116 [facility] Comment on above: Performed By: #### P HOS, MG, CH8 ####S PATHOLOGY XQYXEXXEER3244 [place], Potassium [Moles/Vol] 3.4 mmol/L Normal 3.3-5.3 [facility] Comment on above: Performed By: #### P HOS, MG, CH8 ####[facility] PATHOLOGY BMTPZNPNWZ[address] [place] [address], Sodium [Moles/Vol] 139 mmol/L Normal 135-148 [facility] Comment on above: Performed By: #### P HOS, MG, CH8 ####[facility] PATHOLOGY DMVCBMUCRA[address] [place] [address], Urea nitrogen [Mass/Vol] 19 mg/dL Normal 8-22 [facility] Comment on above: Performed By: #### P HOS, MG, CH8 ####S PATHOLOGY ZOZEYFXNLI[address] [place] [address], CBC WITH DIFFERENTIALon 03-04 Basophils (Bld) [#/Vol] 0.06 10*3/uL Normal 0.00-0.20 [facility] Comment on above: Performed By: #### C BCDSAT ####S PATHOLOGY IYJQKHYIUK[address] [place] [address], Basophils/100 WBC (Bld) 0.5 % Normal <=1.9 [facility] Comment on above: Performed By: #### C BCDSAT ####S PATHOLOGY QWDWHONKER[address] [place] [address], Eosinophils (Bld) [#/Vol] 0.19 10*3/uL Normal 0.00-0.70 [facility] Comment on above: Performed By: #### C BCDSAT ####[facility] PATH[facility] SALQTOOLWQ6989 [place], Eosinophils/100 WBC (Bld) 1.7 % Normal 0.1-4.0 [facility] Comment on above: Performed By: #### C VERAAT ####[facility] PATHOLOGY LPWDMYOCTM[address] [place] [address], Erythrocyte distribution width (RBC) [Ratio] 13.7 % Normal 11.5-14.5 [facility] Comment on above: Performed By: #### C VERAAT ####[facility] PATHOLOGY EPAIVGYFZG8[address] [place] [address], Hematocrit (Bld) [Volume fraction] 36.2 % Low 41.0-53.0 [facility] Comment on above: Performed By: #### C VERAAT ####[facility] PATHOLOG[facility] SYSZWCSTAP[address] [place] [address], Hemoglobin (Bld) [Mass/Vol] 12.0 g/dL Low 13.9-16.3 [facility] Comment on above: Performed By: #### C VERAAT ####[facility] PATHOLOG[facility] RPOKBSAHEZ[address] [place] [address], Lymphocytes (Bld) [#/Vol] 1.10 10*3/uL Normal 1.00-4.80 [facility] Comment on above: Performed By: #### C BCMARIAMAAT ####[facility] PATHOLOG[facility] VAKBJIHOLZ7372 [place], Lymphocytes/100 WBC (Bld) 9.9 % Low 24.0-44.0 [facility] Comment on above: Performed By: #### C BCMARIAMAAT ####[facility] PATH[facility] QHIUDLVIQZ5106 [place], MCH (RBC) [Entitic mass] 30.5 pg Normal 26.0-34.0 [facility] Comment on above: Performed By: #### C VERAAT ####S PATHOLOGY [id number] [place], MCHC (RBC) [Mass/Vol] 33.3 g/dL Normal 32.0-35.9 [facility] Comment on above: Performed By: #### Deborah GAMEZAT ####[facility] PATHOLOG[facility] UKABRSDGQE4537 [place], MCV (RBC) [Entitic vol] 92 fL Normal 80-100 [facility] Comment on above: Performed By: #### C VERAAT ####[facility] PATHOLOG[facility] IVFABNXYLK5335 [place], MONOCYTE DISTRIBUTION WIDTH Normal [facility] Comment on above: Performed By: #### Deborah GAMEZAT ####[facility] PATHOLOG[facility] [id number] [place], Monocytes (Bld) [#/Vol] 1.40 10*3/uL High 0.20-1.00 [facility] Comment on above: Performed By: #### Deborah GAMEZAT ####[facility] PATHOLOG[facility] LQWNWANNHK2840 [place], Monocytes/100 WBC (Bld) 12.7 % High 2.0-11.0 [facility] Comment on above: Performed By: #### C VERAAT ####[facility] PATHOLOG[facility] SQUMTEICBC4744 [place], Neutrophils (Bld) [#/Vol] 8.35 10*3/uL High 1.50-8.00 [facility] Comment on above: Performed By: #### Deborah GAMEZAT ####[facility] PATHOLOG[facility] SZANJLADMK3524 [place], Neutrophils/100 WBC (Bld) 75.3 % Normal 31.0-76.0 [facility] Comment on above: Performed By: #### Deborah GAMEZAT ####S PATHOLOGY HQNMEQVOYP7221 [place], Platelet mean volume (Bld) [Entitic vol] 9.3 fL Normal 7.5-11.2 [facility] Comment on above: Performed By: #### C BCDSAT ####[facility] PATH[facility] [id number] [place], Platelets (Bld) [#/Vol] 182 10*3/uL Normal 150-400 [facility] Comment on above: Performed By: #### C BCDSAT ####[facility] PATH[facility] XREBYRZFMR2727 [place], RBC (Bld) [#/Vol] 3.95 10*6/uL Low 4.50-5.90 [facility] Comment on above: Performed By: #### C BCDSAT ####[facility] PATHOLOG[facility] HHZROPEEYJ[address] [place] [address], WBC (Bld) [#/Vol] 11.1 10*3/uL Normal 4.5-11.5 [facility] Comment on above: Performed By: #### C BCDSAT ####[facility] PATHOLOG[facility] GHMAXFSVZJ19[address] [place] [address], Basophils (Bld) [#/Vol] 0.05 10*3/uL Normal 0.00-0.20 [facility] Comment on above: Performed By: #### C BCDSAT ####[facility] PVWACKXZNF[address] [place] [address], Basophils/100 WBC (Bld) 0.5 % Normal <=1.9 [facility] Comment on above: Performed By: #### C BCDSAT ####[facility] PATH[facility] AXKGXBLAXU8815 [place], Eosinophils (Bld) [#/Vol] 0.20 10*3/uL Normal 0.00-0.70 [facility] Comment on above: Performed By: #### C BCDSAT ####[facility] VTIRVWEKKN[address] [place] [address], Eosinophils/100 WBC (Bld) 1.9 % Normal 0.1-4.0 [facility] Comment on above: Performed By: #### C BCDSAT ####[facility] PATH[facility] VOOYZWIMZB[address] [place] [address], Erythrocyte distribution width (RBC) [Ratio] 14.0 % Normal 11.5-14.5 [facility] Comment on above: Performed By: #### C VERAAT ####[facility] [id number] [place], Hematocrit (Bld) [Volume fraction] 32.6 % Low 41.0-53.0 [facility] Comment on above: Performed By: #### C VERAAT ####[facility] QANVEYJGST95[address] [place] [address], Hemoglobin (Bld) [Mass/Vol] 11.0 g/dL Low 13.9-16.3 [facility] Comment on above: Performed By: #### Deborah GAMEZAT ####[facility] PATH[facility] ORAJDCRTBE7[address] [place] [address], Lymphocytes (Bld) [#/Vol] 1.29 10*3/uL Normal 1.00-4.80 [facility] Comment on above: Performed By: #### Deborah GAMEZAT ####[facility] MPIBSZLDNA[address] [place] [address], Lymphocytes/100 WBC (Bld) 12.3 % Low 24.0-44.0 [facility] Comment on above: Performed By: #### Deborah GAMEZAT ####[facility] WIIKJQTYLY508[address] [place] [address], MCH (RBC) [Entitic mass] 30.6 pg Normal 26.0-34.0 [facility] Comment on above: Performed By: #### Deborah GAMEZAT ####[facility] PATHOLOG[facility] LNHCEOWPSH9[address] [place] [address], MCHC (RBC) [Mass/Vol] 33.8 g/dL Normal 32.0-35.9 [facility] Comment on above: Performed By: #### Deborah GAMEZAT ####[facility] PATH[facility] [id number] [place], MCV (RBC) [Entitic vol] 91 fL Normal 80-100 [facility] Comment on above: Performed By: #### Deborah GAMEZAT ####[facility] [id number] [place] [address], [place], MONOCYTE DISTRIBUTION WIDTH Normal [facility] Comment on above: Performed By: #### Deborah GAMEZAT ####[facility] EGMEAAXSJI6264 [place], Monocytes (Bld) [#/Vol] 1.12 10*3/uL High 0.20-1.00 [facility] Comment on above: Performed By: #### Deborah GAMEZAT ####[facility] PATH[facility] LUHLOCGKSL[address] [place] [address], Monocytes/100 WBC (Bld) 10.8 % Normal 2.0-11.0 [facility] Comment on above: Performed By: #### Deborah GAMEZAT ####[facility] MEJQAAHXMF[address] [place] [address], Neutrophils (Bld) [#/Vol] 7.79 10*3/uL Normal 1.50-8.00 [facility] Comment on above: Performed By: #### Deborah GAMEZAT ####[facility] PATH[facility] RNFXUTLVZN[address] [place] [address], Neutrophils/100 WBC (Bld) 74.5 % Normal 31.0-76.0 [facility] Comment on above: Performed By: #### Deborah GMAEZAT ####[facility] SWGAFSQSBO6727 [place], Platelet mean volume (Bld) [Entitic vol] 9.1 fL Normal 7.5-11.2 [facility] Comment on above: Performed By: #### Deborah GAMEZAT ####S PATHOLOGY ONYXUABVJE8[address] [place] [address], Platelets (Bld) [#/Vol] 168 10*3/uL Normal 150-400 [facility] Comment on above: Performed By: #### Deborah GAMEZAT ####S PATHOLOGY QRBFSVOELC6163 [place], RBC (Bld) [#/Vol] 3.61 10*6/uL Low 4.50-5.90 [facility] Comment on above: Performed By: #### C BCDSAT ####[facility] ECOLYDQPWG3394 [place], WBC (Bld) [#/Vol] 10.4 10*3/uL Normal 4.5-11.5 [facility] Comment on above: Performed By: #### C BCDSAT ####S PATHOLOGY YXJGNHJUHE3588 [place], Care Plan Noteon 03-15-2021 Adjutant General Authentication Interface Message Text Normal [facility] Consultson 03-15-2021 Adjutant General Authentication Interface Message Text Normal [facility] GLUCOSE, FINGERSTICK-IN OFFI CEon 03-15-2021 Glucose [Mass/Vol] 98 mg/dL Normal 80-116 [facility] Comment on above: Result Comment: Salvador jovel RN, APN, MD Performed By: #### 8 1448 ####NURSING GLUCOSE LKINQQH5615 [place], [address] Glucose [Mass/Vol] 106 mg/dL Normal 80-116 [facility] Comment on above: Result Comment: Salvador jovel RN, APN, MD Performed By: #### 8 2948 ####NURSING GLUCOSE UIFATRU1642 [place], [address] Glucose [Mass/Vol] 114 mg/dL Normal 80-116 [facility] Comment on above: Result Comment: Salvador jovel RN, APN, MD Performed By: #### 8 2948 ####NURSING GLUCOSE OQREPGT4695 [place], [address] Glucose [Mass/Vol] 90 mg/dL Normal 80-116 [facility] Comment on above: Result Comment: Salvador jovel RN, APN, MD Performed By: #### 8 0598 ####NURSING GLUCOSE DKETUGS4951 [place], [address] Glucose [Mass/Vol] 97 mg/dL Normal 80-116 [facility] Comment on above: Performed By: #### 8 9610 ####NURSING GLUCOSE RWNNELJ3008 [place], [address] Glucose [Mass/Vol] 95 mg/dL Normal 80-116 [facility] Comment on above: Performed By: #### 8 7716 ####NURSING GLUCOSE JRBSLEP1425 [place], [address] MAGNESIUMon 03-15-2021 Magnesium [Mass/Vol] 2.2 mg/dL Normal 1.6-2.8 [facility] Comment on above: Performed By: #### P MG JOHN, CH8 ####[facility] YWNRDVRPUG5663 [place], OP Noteon 03-15-2021 Adjutant General Authentication Interface Message Text Normal [facility] PARTIAL THROMBOPLASTIN TIMEo n 03-15-2021 aPTT Coag (Bld) [Time] 66 s High 25-37 [facility] Comment on above: Performed By: #### A PTT ####[facility] LLCGMNALOZ0686 [place], aPTT Coag (Bld) [Time] 61 s High 25-37 [facility] Comment on above: Performed By: #### A PTT ####[facility] [id number] [place], PHOSPHORUSon 03-15-2021 Phosphate [Mass/Vol] 2.5 mg/dL Normal 2.3-4.2 [facility] Comment on above: Performed By: #### P MG JOHN, CH8 ####[facility] RUBFCZNAUS[address] [place] [address], Progress Noteson 03-15-2021 Adjutant General Authentication Interface Message Text Normal [facility] Adjutant General Authentication Interface Message Text Normal [facility] TYPE AND SCREENon 03-15-2021 ABO and Rh group Nom (Bld) Blood group AB Rh(D) positive Normal [facility] Comment on above: Performed By: #### T S ####[facility] HKSNRCVFYJ2312 [place], ABSC INT Negative Normal [facility] Comment on above: Performed By: #### T S ####[facility] NBNBPRVBZO9086 [place], BASIC METABOLIC PANELon 03-04 Anion gap [Moles/Vol] 12 mmol/L Normal 10-20 [facility] Comment on above: Performed By: #### C H8, PHOS, MG ####[facility] RJNIJZZBQV6235 [place], Calcium [Mass/Vol] 7.8 mg/dL Low 8.4-10.4 [facility] Comment on above: Performed By: #### C H8, PHOS, MG ####[facility] XQDEAAELAE2364 [place], Chloride [Moles/Vol] 102 mmol/L Normal 97-111 [facility] Comment on above: Performed By: #### C H8, PHOS, MG ####[facility] IJDHPIGKIR3156 [place], CO2 [Moles/Vol] 26 mmol/L Normal 21-30 [facility] Comment on above: Performed By: #### C H8, PHOS, MG ####[facility] ZGDNLBHIDG3790 [place], Creatinine [Mass/Vol] 1.19 mg/dL Normal 0.80-1.30 [facility] Comment on above: Performed By: #### C H8, PHOS, MG ####[facility] JQBHSJEQUV2441 [place], ESTIMATED GFR (CKD-EPI) 59 mL/min/1.73sqm Low >=60 [facility] Comment on above: Performed By: #### C H8, PHOS, MG ####[facility] PSQVAXAFFL3219 [place], Glucose [Mass/Vol] 166 mg/dL High 80-116 [facility] Comment on above: Performed By: #### C H8, PHOS, MG ####[facility] EYNAXTWBSF2718 [place], Potassium [Moles/Vol] 3.7 mmol/L Normal 3.3-5.3 [facility] Comment on above: Performed By: #### C H8, PHOS, MG ####[facility] KFSSPESTMR8549 [place], Sodium [Moles/Vol] 136 mmol/L Normal 135-148 [facility] Comment on above: Performed By: #### C BRIDGETT JeronimoS, MG ####S PATHOLOGY KMATCIXYHZ5148 [place], Urea nitrogen [Mass/Vol] 21 mg/dL Normal 8-22 [facility] Comment on above: Performed By: #### C LISSETH Jeronimo, MG ####[facility] [id number] [place], [place], CBC WITH DIFFERENTIALon 03-04 Basophils (Bld) [#/Vol] 0.04 10*3/uL Normal 0.00-0.20 [facility] Comment on above: Performed By: #### Deborah BCMARIAMAAT ####[facility] [id number] [place] [address], Basophils/100 WBC (Bld) 0.3 % Normal <=1.9 [facility] Comment on above: Performed By: #### Deborah GAMEZAT ####[facility] [id number] [place] [address], Eosinophils (Bld) [#/Vol] 0.20 10*3/uL Normal 0.00-0.70 [facility] Comment on above: Performed By: #### Deborah GAMEZAT ####[facility] [id number] [place] [address], Eosinophils/100 WBC (Bld) 1.6 % Normal 0.1-4.0 [facility] Comment on above: Performed By: #### Deborah GAMEZAT ####S PATHOLOGY [id number] [place], [place], Erythrocyte distribution width (RBC) [Ratio] 14.0 % Normal 11.5-14.5 [facility] Comment on above: Performed By: #### Deborah GAMEZAT ####S PATHOLOGY [id number] [place], [place], Hematocrit (Bld) [Volume fraction] 33.8 % Low 41.0-53.0 [facility] Comment on above: Performed By: #### Deborah GAMEZAT ####S PATHOLOGY KWUTKMXBEA[address] [place] [address], Hemoglobin (Bld) [Mass/Vol] 11.0 g/dL Low 13.9-16.3 [facility] Comment on above: Performed By: #### C BCDSAT ####[facility] [id number] [place] [address], Lymphocytes (Bld) [#/Vol] 1.36 10*3/uL Normal 1.00-4.80 [facility] Comment on above: Performed By: #### C BCDSAT ####[facility] [id number] [place] [address], Lymphocytes/100 WBC (Bld) 10.9 % Low 24.0-44.0 [facility] Comment on above: Performed By: #### C BCDSAT ####[facility] PATH[facility] [id number] [place] [address], MCH (RBC) [Entitic mass] 29.6 pg Normal 26.0-34.0 [facility] Comment on above: Performed By: #### C BCDSAT ####[facility] [id number] [place] [address], MCHC (RBC) [Mass/Vol] 32.5 g/dL Normal 32.0-35.9 [facility] Comment on above: Performed By: #### C BCDSAT ####[facility] [id number] [place] [address], MCV (RBC) [Entitic vol] 91 fL Normal 80-100 [facility] Comment on above: Performed By: #### C BCDSAT ####[facility] [id number] [place] [address], MONOCYTE DISTRIBUTION WIDTH Normal [facility] Comment on above: Performed By: #### C BCDSAT ####[facility] [id number] [place] [address], Monocytes (Bld) [#/Vol] 1.50 10*3/uL High 0.20-1.00 [facility] Comment on above: Performed By: #### C BCDSAT ####[facility] [id number] [place], Monocytes/100 WBC (Bld) 12.0 % High 2.0-11.0 [facility] Comment on above: Performed By: #### C BCDSAT ####[facility] [id number] [place], Neutrophils (Bld) [#/Vol] 9.37 10*3/uL High 1.50-8.00 [facility] Comment on above: Performed By: #### C BCDSAT ####[facility] [id number] [place] [address], Neutrophils/100 WBC (Bld) 75.2 % Normal 31.0-76.0 [facility] Comment on above: Performed By: #### C BCDSAT ####[facility] [id number] [place] [address], Platelet mean volume (Bld) [Entitic vol] 8.8 fL Normal 7.5-11.2 [facility] Comment on above: Performed By: #### C BCDSAT ####[facility] [id number] [place], Platelets (Bld) [#/Vol] 172 10*3/uL Normal 150-400 [facility] Comment on above: Performed By: #### C BCDSAT ####[facility] [id number] [place], RBC (Bld) [#/Vol] 3.72 10*6/uL Low 4.50-5.90 [facility] Comment on above: Performed By: #### C BCDSAT ####[facility] [id number] [place], WBC (Bld) [#/Vol] 12.5 10*3/uL High 4.5-11.5 [facility] Comment on above: Performed By: #### C BCDSAT ####[facility] [id number] [place], Basophils (Bld) [#/Vol] 0.02 10*3/uL Normal 0.00-0.20 [facility] Comment on above: Performed By: #### C BCDSAT ####[facility] [id number] [place] [address], #### HB A1C ####[facility] [address] [place], [address] Basophils/100 WBC (Bld) 0.1 % Normal <=1.9 [facility] Comment on above: Performed By: #### C BCDSAT ####[facility] [id number] [place] [address], #### HB A1C ####[facility] [address] [place], [place], Eosinophils (Bld) [#/Vol] 0.12 10*3/uL Normal 0.00-0.70 [facility] Comment on above: Performed By: #### C BCDSAT ####[facility] [id number] [place] [address], #### HB A1C ####[facility] [address] [place], [address] Eosinophils/100 WBC (Bld) 0.8 % Normal 0.1-4.0 [facility] Comment on above: Performed By: #### C BCDSAT ####[facility] [id number] [place] [address], #### HB A1C ####[facility] [address] [place], [place], Erythrocyte distribution width (RBC) [Ratio] 13.9 % Normal 11.5-14.5 [facility] Comment on above: Performed By: #### C BCDSAT ####[facility] [id number] [place] [address], #### HB A1C ####[facility] [address] [place], [place], Hematocrit (Bld) [Volume fraction] 34.2 % Low 41.0-53.0 [facility] Comment on above: Performed By: #### C BCDSAT ####[facility] [id number] [place] [address], #### HB A1C ####[facility] [address] [place], [address] Hemoglobin (Bld) [Mass/Vol] 11.4 g/dL Low 13.9-16.3 [facility] Comment on above: Performed By: #### C BCDSAT ####[facility] [id number] [place] [address], #### HB A1C ####[facility] [address] [place], [place], Lymphocytes (Bld) [#/Vol] 1.49 10*3/uL Normal 1.00-4.80 [facility] Comment on above: Performed By: #### C BCDSAT ####[facility] [id number] [place] [address], #### HB A1C ####[facility] [address] [place] [address], Lymphocytes/100 WBC (Bld) 9.8 % Low 24.0-44.0 [facility] Comment on above: Performed By: #### C BCDSAT ####[facility] [id number] [place] [address], #### HB A1C ####[facility] [address] [place] [address], MCH (RBC) [Entitic mass] 30.1 pg Normal 26.0-34.0 [facility] Comment on above: Performed By: #### C BCDSAT ####[facility] [id number] [place] [address], #### HB A1C ####[facility] [address] [place], [place], MCHC (RBC) [Mass/Vol] 33.2 g/dL Normal 32.0-35.9 [facility] Comment on above: Performed By: #### C BCDSAT ####[facility] [id number] [place] [address], #### HB A1C ####[facility] [address] [place], [address] MCV (RBC) [Entitic vol] 91 fL Normal 80-100 [facility] Comment on above: Performed By: #### C BCDSAT ####[facility] [id number] [place] [address], #### HB A1C ####[facility] [address] [place], [address] MONOCYTE DISTRIBUTION WIDTH Normal [facility] Comment on above: Performed By: #### C BCDSAT ####[facility] [id number] [place] [address], #### HB A1C ####[facility] [address] [place], [address] Monocytes (Bld) [#/Vol] 1.66 10*3/uL High 0.20-1.00 [facility] Comment on above: Performed By: #### C BCDSAT ####[facility] [id number] [place] [address], #### HB A1C ####[facility] [address] [place], [address] Monocytes/100 WBC (Bld) 11.0 % Normal 2.0-11.0 [facility] Comment on above: Performed By: #### C BCDSAT ####[facility] [id number] [place] [address], #### HB A1C ####[facility] [address] [place], [address] Neutrophils (Bld) [#/Vol] 11.85 10*3/uL High 1.50-8.00 [facility] Comment on above: Performed By: #### C BCDSAT ####[facility] [id number] [place] [address], #### HB A1C ####[facility] [address] [place], [address] Neutrophils/100 WBC (Bld) 78.3 % High 31.0-76.0 [facility] Comment on above: Performed By: #### C BCDSAT ####[facility] [id number] [place] [address], #### HB A1C ####[facility] [address] [place], [address] Platelet mean volume (Bld) [Entitic vol] 8.9 fL Normal 7.5-11.2 [facility] Comment on above: Performed By: #### C BCDSAT ####[facility] [id number] [place] [address], #### HB A1C ####[facility] [address] [place], [place], Platelets (Bld) [#/Vol] 178 10*3/uL Normal 150-400 [facility] Comment on above: Performed By: #### C BCDSAT ####[facility] [id number] [place] [address], #### HB A1C ####[facility] [address] [place], [place], RBC (Bld) [#/Vol] 3.76 10*6/uL Low 4.50-5.90 [facility] Comment on above: Performed By: #### C BCDSAT ####[facility] [id number] [place] [address], #### HB A1C ####[facility] [address] [place], [address] WBC (Bld) [#/Vol] 15.1 10*3/uL High 4.5-11.5 [facility] Comment on above: Performed By: #### C BCDSAT ####[facility] [id number] [place] [address], #### HB A1C ####[facility] [address] [place], [address] Basophils (Bld) [#/Vol] 0.09 10*3/uL Normal 0.00-0.20 [facility] Comment on above: Performed By: #### C BCDSAT ####[facility] [id number] [place] [address], [place], Basophils/100 WBC (Bld) 0.5 % Normal <=1.9 [facility] Comment on above: Performed By: #### C BCDSAT ####[facility] [id number] [place], Eosinophils (Bld) [#/Vol] 0.07 10*3/uL Normal 0.00-0.70 [facility] Comment on above: Performed By: #### C BCDSAT ####[facility] [id number] [place] [address], Eosinophils/100 WBC (Bld) 0.4 % Normal 0.1-4.0 [facility] Comment on above: Performed By: #### C BCDSAT ####[facility] [id number] [place] [address], Erythrocyte distribution width (RBC) [Ratio] 14.1 % Normal 11.5-14.5 [facility] Comment on above: Performed By: #### C BCDSAT ####[facility] [id number] [place] [address], Hematocrit (Bld) [Volume fraction] 36.9 % Low 41.0-53.0 [facility] Comment on above: Performed By: #### C BCDSAT ####[facility] [id number] [place], Hemoglobin (Bld) [Mass/Vol] 11.9 g/dL Low 13.9-16.3 [facility] Comment on above: Performed By: #### C BCDSAT ####[facility] [id number] [place] [address], Lymphocytes (Bld) [#/Vol] 1.47 10*3/uL Normal 1.00-4.80 [facility] Comment on above: Performed By: #### C BCDSAT ####S PATHOLOGY [id number] [place], Lymphocytes/100 WBC (Bld) 7.7 % Low 24.0-44.0 [facility] Comment on above: Performed By: #### C BCDSAT ####[facility] [id number] [place], MCH (RBC) [Entitic mass] 29.4 pg Normal 26.0-34.0 [facility] Comment on above: Performed By: #### C BCDSAT ####[facility] [id number] [place], MCHC (RBC) [Mass/Vol] 32.2 g/dL Normal 32.0-35.9 [facility] Comment on above: Performed By: #### C BCDSAT ####[facility] [id number] [place], MCV (RBC) [Entitic vol] 91 fL Normal 80-100 [facility] Comment on above: Performed By: #### C VERAAT ####[facility] [id number] [place], MONOCYTE DISTRIBUTION WIDTH Normal [facility] Comment on above: Performed By: #### Deborah GAMEZAT ####[facility] [id number] [place], Monocytes (Bld) [#/Vol] 2.41 10*3/uL High 0.20-1.00 [facility] Comment on above: Performed By: #### C BCMARIAMAAT ####[facility] [id number] [place], Monocytes/100 WBC (Bld) 12.6 % High 2.0-11.0 [facility] Comment on above: Performed By: #### C BCDSAT ####[facility] [id number] [place], Neutrophils (Bld) [#/Vol] 15.16 10*3/uL High 1.50-8.00 [facility] Comment on above: Performed By: #### C BCDSAT ####[facility] [id number] [place], Neutrophils/100 WBC (Bld) 79.0 % High 31.0-76.0 [facility] Comment on above: Performed By: #### C BCMARIAMAAT ####S PATHOLOGY [id number] [place], Platelet mean volume (Bld) [Entitic vol] 8.9 fL Normal 7.5-11.2 [facility] Comment on above: Performed By: #### C VERAAT ####S PATHOLOGY [id number] [place], Platelets (Bld) [#/Vol] 187 10*3/uL Normal 150-400 [facility] Comment on above: Performed By: #### C VERAAT ####[facility] [id number] [place], RBC (Bld) [#/Vol] 4.03 10*6/uL Low 4.50-5.90 [facility] Comment on above: Performed By: #### Deborah GAMEZAT ####[facility] [id number] [place], WBC (Bld) [#/Vol] 19.2 10*3/uL High 4.5-11.5 [facility] Comment on above: Performed By: #### Deborah GAMEZAT ####[facility] [id number] [place], Care Plan Noteon 03-14-2021 [employer] Authentication Interface Message Text Normal [facility] GLUCOSE, FINGERSTICK-IN OFFI CEon 03-14-2021 Glucose [Mass/Vol] 123 mg/dL High 80-116 [facility] Comment on above: Performed By: #### 8 2949 ####NURSING GLUCOSE [id number] [place], [address] Glucose [Mass/Vol] 132 mg/dL High 80-116 [facility] Comment on above: Result Comment: Dickson ow Protocol Performed By: #### 8 6460 ####NURSING GLUCOSE [id number] [place], [address] Glucose [Mass/Vol] 200 mg/dL High 80-116 [facility] Comment on above: Result Comment: Salvador jovel RN, APN, MD Performed By: #### 8 8727 ####NURSING GLUCOSE [id number] [place], [address] HEMOGLOBIN A1Con 03-14-2021 Glucose [Mass/Vol] 137 mg/dL Normal [facility] Comment on above: Order Comment: HbA1c of 5.7-6.4% have increased risk for diabetes and CV(Source :ADA 2014 Standard of Medical Care in Diabetes) Performed By: #### C BCDSAT ####[facility] [id number] [place], [place], #### HB A1C ####[facility] [address] [place], [address] HbA1c (Bld) [Mass fraction] 6.4 % High 4.0-5.6 [facility] Comment on above: Order Comment: HbA1c of 5.7-6.4% have increased risk for diabetes and CV(Source :ADA 2014 Standard of Medical Care in Diabetes) Performed By: #### C BCDSAT ####[facility] [id number] [place], #### HB A1C ####[facility] [address] [place], [address] MAGNESIUMon 03-14-2021 Magnesium [Mass/Vol] 2.2 mg/dL Normal 1.6-2.8 [facility] Comment on above: Performed By: #### C H8, PHOS, MG ####[facility] [id number] [place], PARTIAL THROMBOPLASTIN TIMEo n 03-14-2021 aPTT Coag (Bld) [Time] 49 s High - e [facility] Comment on above: Performed By: #### A PTT ####[facility] [id number] [place], aPTT Coag (Bld) [Time] 88 s High -37 [facility] Comment on above: Performed By: #### A PTT, PT ####[facility] [id number] [place], PHOSPHORUSon 03-14-2021 Phosphate [Mass/Vol] 1.8 mg/dL Low 2.3-4.2 [facility] Comment on above: Performed By: #### C H8, PHOS, MG ####[facility] [id number] [place], PROTHROMBIN TIME AND INRon 1 INR Coag (PPP) [Relative time] 1.80 {INR} High 0.90-1.10 [facility] Comment on above: Performed By: #### A PTT, PT ####[facility] [id number] [place], PT Coag (PPP) [Time] 20.2 s High 9.7-12.9 [facility] Comment on above: Performed By: #### A PTT, PT ####[facility] [id number] [place], Procedureson 03-14-2021 [employer] Authentication Interface Message Text Normal [facility] Progress Noteson 03-14-2021 [employer] Authentication Interface Message Text Normal [facility] Adj[employer]ant [employer] Authentication Interface Message Text Normal [facility] Adjutant [employer] Authentication Interface Message Text Normal [facility] Adjutant [employer] Authentication Interface Message Text Normal [facility] Adjutant General Authentication Interface Message Text Normal [facility] Adj[employer]ant General Authentication Interface Message Text Normal [facility] Anesthesia Postprocedure Mary Ann luationon 03-13-2021 [employer] Authentication Interface Message Text Normal [facility] Anesthesia Transfer Of Careo n 03-13-2021 [employer] Authentication Interface Message Text Normal [facility] BASIC METABOLIC PANELon 10- Anion gap [Moles/Vol] 13 mmol/L Normal 10-20 [facility] Comment on above: Performed By: #### M G, CH8, HEPATIC ####[facility] [id number] [place], Calcium [Mass/Vol] 8.2 mg/dL Low 8.4-10.4 [facility] Comment on above: Performed By: #### M G, CH8, HEPATIC ####[facility] [id number] [place], Chloride [Moles/Vol] 100 mmol/L Normal 97-111 [facility] Comment on above: Performed By: #### YOEL Garcia, HEPATIC ####[facility] [id number] [place], CO2 [Moles/Vol] 25 mmol/L Normal 21-30 [facility] Comment on above: Performed By: #### YOEL Garcia, HEPATIC ####[facility] [id number] [place], Creatinine [Mass/Vol] 1.13 mg/dL Normal 0.80-1.30 [facility] Comment on above: Performed By: #### YOEL Garcia, HEPATIC ####[facility] [id number] [place], ESTIMATED GFR (CKD-EPI) 63 mL/min/1.73sqm Normal >=60 [facility] Comment on above: Performed By: #### YOEL Garcia, HEPATIC ####[facility] [id number] [place], Glucose [Mass/Vol] 265 mg/dL High 80-116 [facility] Comment on above: Performed By: #### YOEL Garcia, HEPATIC ####[facility] [id number] [place], Potassium [Moles/Vol] 4.2 mmol/L Normal 3.3-5.3 [facility] Comment on above: Performed By: #### YOEL Garcia, HEPATIC ####[facility] [id number] [place], Sodium [Moles/Vol] 134 mmol/L Low 135-148 [facility] Comment on above: Performed By: #### YOEL Garcia, HEPATIC ####[facility] [id number] [place], Urea nitrogen [Mass/Vol] 18 mg/dL Normal 8-22 [facility] Comment on above: Performed By: #### YOEL Garcia, HEPATIC ####[facility] [id number] [place], Anion gap [Moles/Vol] 16 mmol/L Normal 10-20 [facility] Comment on above: Performed By: #### C H8, HEPATIC, MG, TROP I ####[facility] [id number] [place], Calcium [Mass/Vol] 8.8 mg/dL Normal 8.4-10.4 [facility] Comment on above: Performed By: #### C H8, HEPATIC, MG, TROP I ####[facility] [id number] [place], Chloride [Moles/Vol] 102 mmol/L Normal 97-111 [facility] Comment on above: Performed By: #### C H8, HEPATIC, MG, TROP I ####[facility] [id number] [place], CO2 [Moles/Vol] 23 mmol/L Normal 21-30 [facility] Comment on above: Performed By: #### Deborah H8, HEPATIC, MG, TROP I ####[facility] [id number] [place] [address], Creatinine [Mass/Vol] 1.03 mg/dL Normal 0.80-1.30 [facility] Comment on above: Performed By: #### Deborah H8, HEPATIC, MG, TROP I ####[facility] [id number] [place], ESTIMATED GFR (CKD-EPI) 71 mL/min/1.73sqm Normal >=60 [facility] Comment on above: Performed By: #### C H8, HEPATIC, MG, TROP I ####[facility] [id number] [place], [place], Glucose [Mass/Vol] 192 mg/dL High 80-116 [facility] Comment on above: Performed By: #### C H8, HEPATIC, MG, TROP I ####[facility] [id number] [place], Potassium [Moles/Vol] 4.1 mmol/L Normal 3.3-5.3 [facility] Comment on above: Performed By: #### C H8, HEPATIC, MG, TROP I ####[facility] [id number] [place], Sodium [Moles/Vol] 137 mmol/L Normal 135-148 [facility] Comment on above: Performed By: #### C H8, HEPATIC, MG, TROP I ####S PATHOLOGY [id number] [place], Urea nitrogen [Mass/Vol] 19 mg/dL Normal 8-22 [facility] Comment on above: Performed By: #### C H8, HEPATIC, MG, TROP I ####[facility] PATHOLOGY [id number] [place], BLOOD GAS, ARTERIALon 2020 CR BARI 1.0 mmol/L Normal -2.0-2.0 [facility] Comment on above: Performed By: #### C R BGA ####[facility] PATHOLOGY [id number] [place], CR PCO2 41.5 mm Hg Normal 35.0-45.0 [facility] Comment on above: Performed By: #### C R BGA ####[facility] PATHOLOGY [id number] [place], CR PHA 7.403 Normal 7.35-7.45 [facility] Comment on above: Performed By: #### C R BGA ####[facility] PATHOLOGY [id number] [place], CR PO2 64 mm Hg Low 80-100 [facility] Comment on above: Performed By: #### C R BGA ####[facility] PATHOLOGY [id number] [place], FIO2 (CATEGORY) 40% Normal [facility] Comment on above: Performed By: #### C R BGA ####[facility] PATHOLOGY [id number] [place], HCO3 (Bld) [Moles/Vol] 25 mmol/L Normal 22-28 e [facility] Comment on above: Performed By: #### C R BGA ####[facility] PATHOLOGY [id number] [place], MODE Vent Normal [facility] Comment on above: Result Comment: VT 4 80 Peep +5 RR 18 Performed By: #### C R BGA ####[facility] PATHOLOGY [id number] [place], Oxygen saturation in Blood 92.1 % Low >=95.1 [facility] Comment on above: Performed By: #### C R BGA ####[facility] PATHOLOGY [id number] [place], CR BARI 0.1 mmol/L Normal -2.0-2.0 [facility] Comment on above: Performed By: #### C R BGA ####[facility] PATHOLOGY [id number] [place], CR PCO2 52.7 mm Hg High 35.0-45.0 [facility] Comment on above: Performed By: #### C R BGA ####[facility] PATHOLOGY [id number] [place] [address], CR PHA 7.320 Low 7.35-7.45 [facility] Comment on above: Performed By: #### C R BGA ####[facility] PATHOLOGY SECPHIHWAV[address] [place] [address], CR PO2 42 mm Hg Critically low 80-100 [facility] Comment on above: Performed By: #### C R BGA ####[facility] PATHOLOGY [id number] [place] [address], FIO2 (CATEGORY) 40% Normal [facility] Comment on above: Performed By: #### C R BGA ####[facility] PATHOLOGY [id number] [place], HCO3 (Bld) [Moles/Vol] 26 mmol/L Normal 22-28 [facility] Comment on above: Performed By: #### C R BGA ####S PATHOLOGY [id number] [place], MODE Vent Normal [facility] Comment on above: Performed By: #### C R BGA ####[facility] PATHOLOGY [id number] [place] [address], Oxygen saturation in Blood 73.5 % Low >=95.1 [facility] Comment on above: Performed By: #### C Keyshawn BGA ####[facility] PATHOLOGY [id number] [place] [address], CBC WITH DIFFERENTIALon 03-04 Basophils (Bld) [#/Vol] 0.05 10*3/uL Normal 0.00-0.20 [facility] Comment on above: Performed By: #### C BCDSAT ####[facility] PATHOLOGY [id number] [place] [address], Basophils/100 WBC (Bld) 0.3 % Normal <=1.9 [facility] Comment on above: Performed By: #### C BCDSAT ####[facility] PATHOLOGY ATKPHVNQSW[address] [place] [address], Eosinophils (Bld) [#/Vol] 0.02 10*3/uL Normal 0.00-0.70 [facility] Comment on above: Performed By: #### C BCDSAT ####[facility] PATHOLOGY WUSMLIQFFI[address] [place] [address], Eosinophils/100 WBC (Bld) 0.1 % Normal 0.1-4.0 [facility] Comment on above: Performed By: #### C BCDSAT ####[facility] PATHOLOGY [id number] [place] [address], Erythrocyte distribution width (RBC) [Ratio] 14.1 % Normal 11.5-14.5 [facility] Comment on above: Performed By: #### C BCDSAT ####[facility] PATHOLOGY [id number] [place] [address], Hematocrit (Bld) [Volume fraction] 36.0 % Low 41.0-53.0 [facility] Comment on above: Performed By: #### C BCDSAT ####[facility] PATHOLOGY APPNKJOGSD[address] [place] [address], Hemoglobin (Bld) [Mass/Vol] 11.8 g/dL Low 13.9-16.3 [facility] Comment on above: Performed By: #### C BCDSAT ####[facility] PATHOLOGY [id number] [place], Lymphocytes (Bld) [#/Vol] 0.93 10*3/uL Low 1.00-4.80 [facility] Comment on above: Performed By: #### C BCDSAT ####[facility] PATHOLOGY [id number] [place], Lymphocytes/100 WBC (Bld) 4.9 % Low 24.0-44.0 [facility] Comment on above: Performed By: #### C BCDSAT ####[facility] PATHOLOGY [id number] [place], MCH (RBC) [Entitic mass] 30.2 pg Normal 26.0-34.0 [facility] Comment on above: Performed By: #### C BCDSAT ####[facility] PATHOLOGY [id number] [place] [address], MCHC (RBC) [Mass/Vol] 32.8 g/dL Normal 32.0-35.9 [facility] Comment on above: Performed By: #### C BCDSAT ####[facility] PATHOLOGY [id number] [place], MCV (RBC) [Entitic vol] 92 fL Normal 80-100 [facility] Comment on above: Performed By: #### C BCDSAT ####[facility] PATHOLOGY [id number] [place], MONOCYTE DISTRIBUTION WIDTH Normal [facility] Comment on above: Performed By: #### C BCDSAT ####[facility] PATHOLOGY [id number] [place] [address], Monocytes (Bld) [#/Vol] 1.86 10*3/uL High 0.20-1.00 [facility] Comment on above: Performed By: #### C BCDSAT ####[facility] PATHOLOG[facility] [id number] [place], Monocytes/100 WBC (Bld) 9.8 % Normal 2.0-11.0 [facility] Comment on above: Performed By: #### C BCDSAT ####[facility] PATHOLOGY [id number] [place], Neutrophils (Bld) [#/Vol] 16.16 10*3/uL High 1.50-8.00 [facility] Comment on above: Performed By: #### C BCDSAT ####[facility] PATHOLOG[facility] [id number] [place], Neutrophils/100 WBC (Bld) 85.0 % High 31.0-76.0 [facility] Comment on above: Performed By: #### C BCDSAT ####[facility] PATHOLOGY [id number] [place], Platelet mean volume (Bld) [Entitic vol] 9.0 fL Normal 7.5-11.2 [facility] Comment on above: Performed By: #### C BCDSAT ####[facility] PATHOLOGY [id number] [place] [address], Platelets (Bld) [#/Vol] 181 10*3/uL Normal 150-400 [facility] Comment on above: Performed By: #### C BCDSAT ####[facility] PATHOLOG[facility] [id number] [place], RBC (Bld) [#/Vol] 3.91 10*6/uL Low 4.50-5.90 [facility] Comment on above: Performed By: #### C BCDSAT ####[facility] PATHOLOG[facility] [id number] [place], WBC (Bld) [#/Vol] 19.0 10*3/uL High 4.5-11.5 [facility] Comment on above: Performed By: #### C BCDSAT ####[facility] PATHOLOGY [id number] [place], Basophils (Bld) [#/Vol] 0.09 10*3/uL Normal 0.00-0.20 [facility] Comment on above: Performed By: #### C BCDSAT ####[facility] PATHOLOGY [id number] [place], Basophils/100 WBC (Bld) 0.5 % Normal <=1.9 [facility] Comment on above: Performed By: #### C BCDSAT ####[facility] PATHOLOG[facility] [id number] [place], Eosinophils (Bld) [#/Vol] 0.00 10*3/uL Normal 0.00-0.70 [facility] Comment on above: Performed By: #### C BCDSAT ####[facility] PATHOLOGY [id number] [place] [address], Eosinophils/100 WBC (Bld) 0.0 % Low 0.1-4.0 [facility] Comment on above: Performed By: #### C BCDSAT ####[facility] PATHOLOGY [id number] [place] [address], Erythrocyte distribution width (RBC) [Ratio] 14.1 % Normal 11.5-14.5 [facility] Comment on above: Performed By: #### C BCDSAT ####[facility] PATHOLOG[facility] [id number] [place] [address], Hematocrit (Bld) [Volume fraction] 36.1 % Low 41.0-53.0 [facility] Comment on above: Performed By: #### C BCDSAT ####[facility] PATHOLOG[facility] [id number] [place] [address], Hemoglobin (Bld) [Mass/Vol] 12.1 g/dL Low 13.9-16.3 [facility] Comment on above: Performed By: #### C BCDSAT ####[facility] PATHOLOG[facility] [id number] [place] [address], Lymphocytes (Bld) [#/Vol] 0.64 10*3/uL Low 1.00-4.80 [facility] Comment on above: Performed By: #### C BCDSAT ####[facility] PATHOLOG[facility] [id number] [place] [address], Lymphocytes/100 WBC (Bld) 3.3 % Low 24.0-44.0 [facility] Comment on above: Performed By: #### C BCDSAT ####[facility] PATHOLOG[facility] [id number] [place], MCH (RBC) [Entitic mass] 30.5 pg Normal 26.0-34.0 [facility] Comment on above: Performed By: #### Deborah GAMEZAT ####[facility] PATHOLOG[facility] [id number] [place], MCHC (RBC) [Mass/Vol] 33.4 g/dL Normal 32.0-35.9 [facility] Comment on above: Performed By: #### Deborah GAMEZAT ####[facility] PATHOLOG[facility] [id number] [place], MCV (RBC) [Entitic vol] 91 fL Normal 80-100 [facility] Comment on above: Performed By: #### Deborah GAMEZAT ####[facility] PATHOLOG[facility] PUCZIBQXAW[address] [place] [address], MONOCYTE DISTRIBUTION WIDTH Normal [facility] Comment on above: Performed By: #### Deborah GAMEZAT ####[facility] PATHOLOG[facility] [id number] [place] [address], Monocytes (Bld) [#/Vol] 1.73 10*3/uL High 0.20-1.00 [facility] Comment on above: Performed By: #### Deborah GAMEZAT ####[facility] PATHOLOGY TLUETLVCYC[address] [place] [address], Monocytes/100 WBC (Bld) 8.8 % Normal 2.0-11.0 [facility] Comment on above: Performed By: #### Deborah GAMEZAT ####[facility] PATHOLOGY [id number] [place] [address], Neutrophils (Bld) [#/Vol] 17.30 10*3/uL High 1.50-8.00 [facility] Comment on above: Performed By: #### C VERAAT ####[facility] PATHOLOGY [id number] [place] [address], Neutrophils/100 WBC (Bld) 87.5 % High 31.0-76.0 [facility] Comment on above: Performed By: #### Deborah GAMEZAT ####[facility] PATHOLOG[facility] [id number] [place], Platelet mean volume (Bld) [Entitic vol] 8.6 fL Normal 7.5-11.2 [facility] Comment on above: Performed By: #### C BCDSAT ####[facility] PATHOLOG[facility] [id number] [place], Platelets (Bld) [#/Vol] 203 10*3/uL Normal 150-400 [facility] Comment on above: Performed By: #### C BCDSAT ####[facility] PATHOLOG[facility] [id number] [place], RBC (Bld) [#/Vol] 3.96 10*6/uL Low 4.50-5.90 [facility] Comment on above: Performed By: #### C BCDSAT ####[facility] PATHOLOG[facility] [id number] [place], WBC (Bld) [#/Vol] 19.8 10*3/uL High 4.5-11.5 [facility] Comment on above: Performed By: #### C BCDSAT ####[facility] PATHOLOG[facility] [id number] [place], COMPLETE BLOOD COUNT 03-13 Erythrocyte distribution width (RBC) [Ratio] 13.8 % Normal 11.5-14.5 [facility] Comment on above: Performed By: #### C BC ####[facility] PATHOLOG[facility] [id number] [place], Hematocrit (Bld) [Volume fraction] 37.6 % Low 41.0-53.0 [facility] Comment on above: Performed By: #### C BC ####[facility] PATHOLOG[facility] [id number] [place], Hemoglobin (Bld) [Mass/Vol] 12.5 g/dL Low 13.9-16.3 [facility] Comment on above: Performed By: #### C BC ####[facility] PATHOLOG[facility] [id number] [place], MCH (RBC) [Entitic mass] 30.7 pg Normal 26.0-34.0 [facility] Comment on above: Performed By: #### C BC ####S PATHOLOGY [id number] [place], MCHC (RBC) [Mass/Vol] 33.1 g/dL Normal 32.0-35.9 [facility] Comment on above: Performed By: #### C BC ####S PATHOLOGY [id number] [place], MCV (RBC) [Entitic vol] 93 fL Normal 80-100 [facility] Comment on above: Performed By: #### C BC ####[facility] PATHOLOG[facility] [id number] [place], Platelet mean volume (Bld) [Entitic vol] 9.1 fL Normal 7.5-11.2 [facility] Comment on above: Performed By: #### C BC ####[facility] PATHOLOG[facility] [id number] [place], Platelets (Bld) [#/Vol] 186 10*3/uL Normal 150-400 [facility] Comment on above: Performed By: #### C BC ####[facility] PATHOLOG[facility] [id number] [place], RBC (Bld) [#/Vol] 4.05 10*6/uL Low 4.50-5.90 [facility] Comment on above: Performed By: #### C BC ####[facility] PATHOLOG[facility] [id number] [place], WBC (Bld) [#/Vol] 19.4 10*3/uL High 4.5-11.5 [facility] Comment on above: Performed By: #### C BC ####S PATHOLOGY [id number] [place], Erythrocyte distribution width (RBC) [Ratio] 13.9 % Normal 11.5-14.5 [facility] Comment on above: Performed By: #### C BC ####S PATHOLOGY [id number] [place], Hematocrit (Bld) [Volume fraction] 39.5 % Low 41.0-53.0 [facility] Comment on above: Performed By: #### C BC ####[facility] PATHOLOG[facility] [id number] [place], Hemoglobin (Bld) [Mass/Vol] 13.2 g/dL Low 13.9-16.3 [facility] Comment on above: Performed By: #### C BC ####[facility] PATHOLOG[facility] [id number] [place], MCH (RBC) [Entitic mass] 30.3 pg Normal 26.0-34.0 [facility] Comment on above: Performed By: #### C BC ####[facility] PATHOLOG[facility] [id number] [place], MCHC (RBC) [Mass/Vol] 33.4 g/dL Normal 32.0-35.9 [facility] Comment on above: Performed By: #### C BC ####[facility] PATHOLOGY [id number] [place] [address], MCV (RBC) [Entitic vol] 91 fL Normal 80-100 [facility] Comment on above: Performed By: #### C BC ####[facility] PATHOLOG[facility] [id number] [place], Platelet mean volume (Bld) [Entitic vol] 8.6 fL Normal 7.5-11.2 [facility] Comment on above: Performed By: #### C BC ####[facility] PATHOLOG[facility] [id number] [place], Platelets (Bld) [#/Vol] 219 10*3/uL Normal 150-400 [facility] Comment on above: Performed By: #### C BC ####[facility] PATHOLOG[facility] [id number] [place], RBC (Bld) [#/Vol] 4.35 10*6/uL Low 4.50-5.90 [facility] Comment on above: Performed By: #### C BC ####[facility] PATHOLOG[facility] [id number] [place], WBC (Bld) [#/Vol] 21.9 10*3/uL High 4.5-11.5 [facility] Comment on above: Performed By: #### C BC ####[facility] [id number] [place], Consultson 03-13-2021 [employer] Authentication Interface Message Text Normal [facility] GLUCOSE, FINGERSTICK-IN OFFI CEon 03-13-2021 Glucose [Mass/Vol] 194 mg/dL High 80-116 [facility] Comment on above: Performed By: #### 8 2948 ####NURSING GLUCOSE [id number] [place], [address] Glucose [Mass/Vol] 207 mg/dL High 80-116 [facility] Comment on above: Performed By: #### 8 2948 ####NURSING GLUCOSE [id number] [place], [address] H AND Josue 03-13-2021 [employer] Authentication Interface Message Text Normal [facility] HEPATIC FUNCTION PANELon Albumin [Mass/Vol] 3.7 g/dL Normal 3.4-5.1 [facility] Comment on above: Performed By: #### YOEL Garcia, HEPATIC ####[facility] [id number] [place], ALK 68 IU/L Normal 40-200 [facility] Comment on above: Performed By: #### YOEL Garcia, HEPATIC ####[facility] [id number] [place], ALT [Catalytic activity/Vol] 34 U/L Normal 7-40 [facility] Comment on above: Performed By: #### YOEL Garcia, HEPATIC ####[facility] [id number] [place], AST [Catalytic activity/Vol] 29 U/L Normal 7-40 [facility] Comment on above: Performed By: #### YOEL Garcia, HEPATIC ####[facility] [id number] [place], Bilirubin [Mass/Vol] 1.9 mg/dL High 0.1-1.5 The [facility] Comment on above: Performed By: #### M G, CH8, HEPATIC ####S PATHOLOGY [id number] [place], Bilirubin.direct [Mass/Vol] 0.40 mg/dL High 0.10-0.30 The [facility] Comment on above: Performed By: #### M G, CH8, HEPATIC ####S PATHOLOGY [id number] [place], Protein [Mass/Vol] 6.7 g/dL Normal 5.7-8.1 [facility] Comment on above: Performed By: #### M G, CH8, HEPATIC ####S PATHOLOGY [id number] [place], Albumin [Mass/Vol] 4.0 g/dL Normal 3.4-5.1 [facility] Comment on above: Performed By: #### C H8, HEPATIC, MG, TROP I ####S PATHOLOGY [id number] [place], ALK 72 IU/L Normal 40-200 [facility] Comment on above: Performed By: #### C H8, HEPATIC, MG, TROP I ####S PATHOLOGY [id number] [place], ALT [Catalytic activity/Vol] 31 U/L Normal 7-40 [facility] Comment on above: Performed By: #### C H8, HEPATIC, MG, TROP I ####[facility] [id number] [place], AST [Catalytic activity/Vol] 26 U/L Normal 7-40 [facility] Comment on above: Performed By: #### C H8, HEPATIC, MG, TROP I ####[facility] [id number] [place], Bilirubin [Mass/Vol] 2.2 mg/dL High 0.1-1.5 [facility] Comment on above: Performed By: #### C H8, HEPATIC, MG, TROP I ####[facility] [id number] [place], Bilirubin.direct [Mass/Vol] 0.60 mg/dL High 0.10-0.30 [facility] Comment on above: Performed By: #### C H8, HEPATIC, MG, TROP I ####S PATHOLOGY [id number] [place], Protein [Mass/Vol] 6.8 g/dL Normal 5.7-8.1 [facility] Comment on above: Performed By: #### C H8, HEPATIC, MG, TROP I ####S PATHOLOGY [id number] [place], LACTIC ACIDon 03-13-2021 CR LACT 1.7 mmol/L Normal 0.5-2.0 [facility] Comment on above: Performed By: #### L ACT ####[facility] PATHOLOGY [id number] [place] [address], MAGNESIUMon 03-13-2021 Magnesium [Mass/Vol] 2.3 mg/dL Normal 1.6-2.8 [facility] Comment on above: Performed By: #### M G, CH8, HEPATIC ####S PATHOLOGY [id number] [place], Magnesium [Mass/Vol] 2.3 mg/dL Normal 1.6-2.8 [facility] Comment on above: Performed By: #### C H8, HEPATIC, MG, TROP I ####S PATHOLOGY [id number] [place], PARTIAL THROMBOPLASTIN TIMEo n 03-13-2021 aPTT Coag (Bld) [Time] 79 s High - e [facility] Comment on above: Performed By: #### A PTT ####S PATHOLOGY [id number] [place], aPTT Coag (Bld) [Time] 74 s High - e [facility] Comment on above: Performed By: #### A PTT ####S PATHOLOGY IGDUZWIQAX4265 [place], aPTT Coag (Bld) [Time] 31 s Normal -37 Th e [facility] Comment on above: Performed By: #### A PTT ####S PATHOLOGY [id number] [place], aPTT Coag (Bld) [Time] 34 s Normal 25-37 Th e [facility] Comment on above: Performed By: #### P T, APTT ####S PATHOLOGY [id number] [place], PROTHROMBIN TIME AND INRon 1 INR Coag (PPP) [Relative time] 1.78 {INR} High 0.90-1.10 [facility] Comment on above: Performed By: #### P T ####[facility] [id number] [place], PT Coag (PPP) [Time] 19.7 s High 9.7-12.9 [facility] Comment on above: Performed By: #### P T ####S PATHOLOGY [id number] [place], INR Coag (PPP) [Relative time] 1.82 {INR} High 0.90-1.10 [facility] Comment on above: Performed By: #### P T, APTT ####S PATHOLOGY [id number] [place], [place], PT Coag (PPP) [Time] 20.1 s High 9.7-12.9 [facility] Comment on above: Performed By: #### P T, APTT ####S PATHOLOGY [id number] [place] [address], Progress Noteson 03-13-2021 Adjutant General Authentication Interface Message Text Attempted to reach out to family to give update. Unable to reach. Will continue to try to reach out. Dorian Martel MD PGY-3 Normal [facility] Adjutant General Authentication Interface Message Text Normal [facility] [employer]jut[employer] General Authentication Interface Message Text Normal [facility] [employer]jut[employer] General Authentication Interface Message Text Normal [facility] Adjutant General Authentication Interface Message Text Normal [facility] Adjutant General Authentication Interface Message Text Normal [facility] RESPIRATORY CULTURE, MISCon 03-13-2021 RESPIRATORY CULTURE, MISC Normal [facility] Comment on above: Performed By: #### C RESP ####[facility] Iqu[address] [place], [place] TROPONIN Ion 03-13-2021 TROP I < 0.030 Normal <0.120 [facility] Comment on above: Result Comment: [...] By: #### T ROP I ####S PATHOLOGY [id number] [place], [place], TROP I 0.036 ng/mL Normal <0.120 [facility] Comment on above: Result Comment: [...] H8, HEPATIC, MG, TROP I ####[facility] [id number] [place], [place], XR CHEST 1 VIEW AP OR PAon 1 XR CHEST 1 VIEW AP OR PA Normal [facility] ABO RH TYPEon 03-12-2021 ABO and Rh group Nom (Bld) Blood group AB Rh(D) positive Normal [facility] Comment on above: Performed By: #### A BORH ####[facility] PATHOLOG[facility] [id number] [place], [place], Anesthesia Attestationon [employer]ant [employer] Authentication Interface Message Text Normal [facility] Anesthesia Preprocedure Eval uationon 03-12-2021 Adjutant General Authentication Interface Message Text Normal [facility] B TYPE NATRIURETIC PEPTIDEon 03-12-2021 Natriuretic peptide B (Bld) [Mass/Vol] 132.0 pg/mL High <100.0 [facility] Comment on above: Performed By: #### B PL, CBCDSAT ####S PATHOLOGY CQIKCAJELF7539 [place], [place], BASIC METABOLIC PANELon 100 Anion gap [Moles/Vol] 15 mmol/L Normal 10-20 [facility] Comment on above: Performed By: #### M G, HEPATIC, TROP I, LIP, CH8 ####[facility] PATHOLOGY [id number] [place], Calcium [Mass/Vol] 8.8 mg/dL Normal 8.4-10.4 [facility] Comment on above: Performed By: #### M G, HEPATIC, TROP I, LIP, CH8 ####[facility] PATHOLOGY [id number] [place], Chloride [Moles/Vol] 100 mmol/L Normal 97-111 [facility] Comment on above: Performed By: #### M G, HEPATIC, TROP I, LIP, CH8 ####[facility] PATHOLOGY [id number] [place], CO2 [Moles/Vol] 24 mmol/L Normal 21-30 [facility] Comment on above: Performed By: #### M G, HEPATIC, TROP I, LIP, CH8 ####[facility] PATHOLOGY [id number] [place], Creatinine [Mass/Vol] 1.07 mg/dL Normal 0.80-1.30 [facility] Comment on above: Performed By: #### M G, HEPATIC, TROP I, LIP, CH8 ####[facility] PATHOLOGY FQMHVTTILL5096 [place], ESTIMATED GFR (CKD-EPI) 68 mL/min/1.73sqm Normal >=60 [facility] Comment on above: Performed By: #### M G, HEPATIC, TROP I, LIP, CH8 ####[facility] FIYWSXBUJM0477 [place], Glucose [Mass/Vol] 198 mg/dL High 80-116 [facility] Comment on above: Performed By: #### M G, HEPATIC, TROP I, LIP, CH8 ####S PATHOLOGY PAZWFZBLLR7706 [place], Potassium [Moles/Vol] 4.1 mmol/L Normal 3.3-5.3 [facility] Comment on above: Performed By: #### M G, HEPATIC, TROP I, LIP, CH8 ####[facility] PATHOLOGY [id number] [place], Sodium [Moles/Vol] 135 mmol/L Normal 135-148 [facility] Comment on above: Performed By: #### M G, HEPATIC, TROP I, LIP, CH8 ####[facility] PATHOLOGY [id number] [place], Urea nitrogen [Mass/Vol] 17 mg/dL Normal 8-22 [facility] Comment on above: Performed By: #### M G, HEPATIC, TROP I, LIP, CH8 ####[facility] PATHOLOGY [id number] [place], BLOOD CULTUREon 03-12-2021 Bacteria identified Cx Nom (Bld) C BLOOD: No Growth Normal [facility] Comment on above: Performed By: #### C BLOOD ####[facility] In[address]rfh[address] [place], [place] Blood Attestationon 03-12-20 21 Adjutant General Authentication Interface Message Text Normal [facility] CBC WITH DIFFERENTIALon Basophils (Bld) [#/Vol] 0.04 10*3/uL Normal 0.00-0.20 [facility] Comment on above: Performed By: #### B PL, CBCDSAT ####[facility] PATHOLOGY [id number] [place], Basophils/100 WBC (Bld) 0.2 % Normal <=1.9 [facility] Comment on above: Performed By: #### B PL, CBCDSAT ####[facility] PATH[facility] KFKXYUTLQR2151 [place], Eosinophils (Bld) [#/Vol] 0.00 10*3/uL Normal 0.00-0.70 [facility] Comment on above: Performed By: #### B PL, CBCDSAT ####S PATHOLOGY HMHGCZSECX4000 [place], Eosinophils/100 WBC (Bld) 0.0 % Low 0.1-4.0 [facility] Comment on above: Performed By: #### B PL, CBCDSAT ####[facility] PATHOLOGY [id number] [place] [address], Erythrocyte distribution width (RBC) [Ratio] 13.9 % Normal 11.5-14.5 [facility] Comment on above: Performed By: #### B PL, CBCDSAT ####[facility] PATHOLOGY [id number] [place] [address], Hematocrit (Bld) [Volume fraction] 42.0 % Normal 41.0-53.0 [facility] Comment on above: Performed By: #### B PL, CBCDSAT ####[facility] PATHOLOGY [id number] [place] [address], Hemoglobin (Bld) [Mass/Vol] 14.1 g/dL Normal 13.9-16.3 [facility] Comment on above: Performed By: #### B PL, CBCDSAT ####[facility] PATHOLOGY DYMRVQKZWO7905 [place], Lymphocytes (Bld) [#/Vol] 0.58 10*3/uL Low 1.00-4.80 [facility] Comment on above: Performed By: #### B PL, CBCDSAT ####[facility] PATHOLOGY JSGKVQOAZF[address] [place] [address], Lymphocytes/100 WBC (Bld) 2.5 % Low 24.0-44.0 [facility] Comment on above: Performed By: #### B PL, CBCDSAT ####[facility] PATHOLOGY VEXAGPBBBR[address] [place] [address], MCH (RBC) [Entitic mass] 30.4 pg Normal 26.0-34.0 [facility] Comment on above: Performed By: #### B PL, CBCDSAT ####S PATHOLOGY [id number] [place], MCHC (RBC) [Mass/Vol] 33.5 g/dL Normal 32.0-35.9 [facility] Comment on above: Performed By: #### B PL, CBCDSAT ####S PATHOLOGY CHTKOXJFGW[address] [place] [address], MCV (RBC) [Entitic vol] 91 fL Normal 80-100 [facility] Comment on above: Performed By: #### B PL, CBCDSAT ####[facility] PATHOLOGY [id number] [place] [address], MONOCYTE DISTRIBUTION WIDTH 18 Normal <=20 [facility] Comment on above: Performed By: #### B PL, CBCDSAT ####[facility] PATHOLOGY [id number] [place] [address], Monocytes (Bld) [#/Vol] 1.72 10*3/uL High 0.20-1.00 [facility] Comment on above: Performed By: #### B PL, CBCDSAT ####[facility] PATHOLOGY [id number] [place] [address], Monocytes/100 WBC (Bld) 7.5 % Normal 2.0-11.0 [facility] Comment on above: Performed By: #### B PL, CBCDSAT ####[facility] PATHOLOGY [id number] [place] [address], Neutrophils (Bld) [#/Vol] 20.56 10*3/uL High 1.50-8.00 [facility] Comment on above: Performed By: #### B PL, CBCDSAT ####[facility] PATHOLOGY DHLINQZQRJ[address] [place] [address], Neutrophils/100 WBC (Bld) 89.8 % High 31.0-76.0 [facility] Comment on above: Performed By: #### B PL, CBCDSAT ####S PATHOLOGY [id number] [place] [address], [place], Platelet mean volume (Bld) [Entitic vol] 9.0 fL Normal 7.5-11.2 [facility] Comment on above: Performed By: #### B PL, CBCDSAT ####S PATHOLOGY BZELWASQQQ9141 [place], Platelets (Bld) [#/Vol] 226 10*3/uL Normal 150-400 [facility] Comment on above: Performed By: #### B PL, CBCDSAT ####[facility] VNFWQNBLRF8961 [place], RBC (Bld) [#/Vol] 4.64 10*6/uL Normal 4.50-5.90 [facility] Comment on above: Performed By: #### B PL, CBCDSAT ####[facility] YQFAHBXHSE1908 [place], WBC (Bld) [#/Vol] 22.9 10*3/uL High 4.5-11.5 [facility] Comment on above: Performed By: #### B PL, CBCDSAT ####[facility] PATHOLOGY [id number] [place], COVID/INFLUENZAon 03-12-2021 INFLUENZA A Not detected Normal Not Detected [facility] Comment on above: Order Comment: This test is intended for use only under Emergency Use Authorization (EUA). This test was developed, and its performance characteristics determined by [facility] which is certified under CLIA as qualified to perform high complexity clinical laboratory testing. Result Comment: This assay was performed using [employer] RTPCR technology. Performed By: #### F SOLOMON/COVID ####S PATHOLOGY URANTPWDHQ9939 [place], INFLUENZA B Not detected Normal Not Detected [facility] Comment on above: Order Comment: This test is intended for use only under Emergency Use Authorization (EUA). This test was developed, and its performance characteristics determined by [facility] which is certified under CLIA as qualified to perform high complexity clinical laboratory testing. Result Comment: This assay was performed using [employer] RTPCR technology. Performed By: #### F SOLOMON/COVID ####[facility] PATHOLOGY [id number] [place], SARS-CoV-2 (COVID-19) RNA MICHELLE+probe Ql (Unsp spec) Not detected Normal Not Detected [facility] Comment on above: Order Comment: This test is intended for use only under Emergency Use Authorization (EUA). This test was developed, and its performance characteristics determined by [facility] which is certified under CLIA as qualified to perform high complexity clinical laboratory testing. Result Comment: This assay was performed using [employer] RTPCR technology. Performed By: #### F SOLOMON/COVID ####[facility] PATHOLOGY [id number] [place], [place], CT CHEST W/ CONTRASTon 03-12 CT CHEST W/ CONTRAST Normal [facility] CT NECK W/ CONTRASTon 2020 CT NECK W/ CONTRAST Normal [facility] Consultson 03-12-2021 Adjutant General Authentication Interface Message Text Normal [facility] ED Noteson 03-12-2021 Adjutant General Authentication Interface Message Text 1200- EKG COMPLETED AND SHOWN TO ATTENDING. Normal [facility] Adjutant General Authentication Interface Message Text 1052- IV ESTABLISHED, BLOOD SPECIMENS IN STAT LAB. Normal [facility] ED Provider Noteson 03-12-20 Adjutant General Authentication Interface Message Text Normal [facility] FFPon 03-12-2021 BB ORDER ITEM Product status info to follow Normal [facility] Comment on above: Performed By: #### F FO ####[facility] PATHOLOGY [id number] [place], HEPATIC FUNCTION PANELon Albumin [Mass/Vol] 4.2 g/dL Normal 3.4-5.1 [facility] Comment on above: Performed By: #### M G, HEPATIC, TROP I, LIP, CH8 ####[facility] PATHOLOGY TOTNVMWMXY1326 [place], ALK 79 IU/L Normal 40-200 [facility] Comment on above: Performed By: #### M G, HEPATIC, TROP I, LIP, CH8 ####[facility] PATHOLOGY [id number] [place] [address] [place], ALT [Catalytic activity/Vol] 37 U/L Normal 7-40 [facility] Comment on above: Performed By: #### M G, HEPATIC, TROP I, LIP, CH8 ####[facility] PATHOLOGY [id number] [place], AST [Catalytic activity/Vol] 31 U/L Normal 7-40 [facility] Comment on above: Performed By: #### M G, HEPATIC, TROP I, LIP, CH8 ####[facility] PATHOLOGY [id number] [place], Bilirubin [Mass/Vol] 1.8 mg/dL High 0.1-1.5 [facility] Comment on above: Performed By: #### M G, HEPATIC, TROP I, LIP, CH8 ####[facility] PATHOLOGY [id number] [place] [address], Bilirubin.direct [Mass/Vol] 0.40 mg/dL High 0.10-0.30 [facility] Comment on above: Performed By: #### M G, HEPATIC, TROP I, LIP, CH8 ####[facility] PATHOLOGY [id number] [place] [address], Protein [Mass/Vol] 7.4 g/dL Normal 5.7-8.1 [facility] Comment on above: Performed By: #### M G, HEPATIC, TROP I, LIP, CH8 ####[facility] PATHOLOGY [id number] [place], LIPASEon 03-12-2021 LIP 27 IU/L Normal <128 [facility] Comment on above: Performed By: #### M G, HEPATIC, TROP I, LIP, CH8 ####[facility] PATHOLOGY [id number] [place], MAGNESIUMon 03-12-2021 Magnesium [Mass/Vol] 1.9 mg/dL Normal 1.6-2.8 [facility] Comment on above: Performed By: #### M G, HEPATIC, TROP I, LIP, CH8 ####[facility] PATHOLOGY [id number] [place] [address], OP Noteon 03-12-2021 Adjutant General Authentication Interface Message Text Normal [facility] Adjutant General Authentication Interface Message Text See detailed note 03/12/2021 in the OR. Normal [facility] PARTIAL THROMBOPLASTIN TIMEo n 03-12-2021 aPTT Coag (Bld) [Time] 38 s High 25-37 Th [facility] Comment on above: Performed By: #### P T, APTT ####S PATHOLOGY XAPALLUTUD5460 [place], PLASMA STATUSon 03-12-2021 BLOOD PRODUCT CODE [id number] Normal [facility] Comment on above: Performed By: #### F FU ####S PATHOLOGY [id number] [place], BLOOD PRODUCT CODE [id number] Normal [facility] Comment on above: Performed By: #### F FU ####S PATHOLOGY [id number] [place], BLOOD PRODUCT DESCRIPTION FFP Normal [facility] Comment on above: Performed By: #### F FU ####S PATHOLOGY XVERWQZUXE2313 [place], BLOOD PRODUCT STATUS Transfused Normal [facility] Comment on above: Performed By: #### F FU ####[facility] [id number] [place], BLOOD PRODUCT UNIT INFO [id number] Normal [facility] Comment on above: Performed By: #### F FU ####S PATHOLOGY VNXEHCLVJT4260 [place], BLOOD PRODUCT UNIT INFO [id number] Normal [facility] Comment on above: Performed By: #### F FU ####S PATHOLOGY XUXUSGYFTY1500 [place], BLOOD PRODUCT UNIT TYPE 8400 Normal [facility] Comment on above: Result Comment: AB P os Performed By: #### F FU ####[facility] PATH[facility] WMTAULFWOI0701 [place], PROTHROMBIN TIME AND INRon 1 INR Coag (PPP) [Relative time] 2.44 {INR} High 0.90-1.10 [facility] Comment on above: Performed By: #### P T, APTT ####S PATHOLOGY [id number] [place], PT Coag (PPP) [Time] 27.3 s High 9.7-12.9 [facility] Comment on above: Performed By: #### P T, APTT ####S PATHOLOGY ISCIRTGZZK9214 [place], Progress Noteson 03-12-2021 Adjutant General Authentication Interface Message Text Normal [facility] RED BLOOD CELL COMPONENTon 1 BB ORDER ITEM Product status info to follow Normal [facility] Comment on above: Performed By: #### R RUFINO ####[facility] [id number] [place], RED BLOOD CELL UNIT STATUSon 03-12-2021 BLOOD PRODUCT CODE [id number] Normal [facility] Comment on above: Performed By: #### R BU ####[facility] PATH[facility] MQNAYFZJKY2277 [place], BLOOD PRODUCT DESCRIPTION Red Blood Cells Normal [facility] Comment on above: Performed By: #### R BU ####[facility] PATH[facility] [id number] [place], BLOOD PRODUCT STATUS Transfused Normal [facility] Comment on above: Performed By: #### R BU ####[facility] PATH[facility] [id number] [place], BLOOD PRODUCT STATUS Released to avail Normal [facility] Comment on above: Performed By: #### R BU ####[facility] PATH[facility] ASFSDZILXO0285 [place], BLOOD PRODUCT UNIT INFO [id number] Normal [facility] Comment on above: Performed By: #### R BU ####[facility] PATH[facility] QKDAWGBNZR4538 [place], BLOOD PRODUCT UNIT INFO [id number] Normal [facility] Comment on above: Performed By: #### R BU ####[facility] PATH[facility] QVNHLILRAM4533 [place], BLOOD PRODUCT UNIT TYPE 8400 Normal [facility] Comment on above: Result Comment: AB P os Performed By: #### R BU ####S PATHOLOGY PLKRKYBKSK4860 [place], CROSSMATCH INTERPRETATION Compatible (E) Normal [facility] Comment on above: Performed By: #### R BU ####[facility] PATHOLOGY QYRLHYZXPI9946 [place], TROPONIN Ion 03-12-2021 TROP I < 0.030 Normal <0.120 [facility] Comment on above: Result Comment: [...] M G, HEPATIC, TROP I, LIP, CH8 ####[facility] PATHOLOGY OGNLYWICIA3551 [place], TYPE AND SCREENon 03-12-2021 ABO and Rh group Nom (Bld) Blood group AB Rh(D) positive Normal [facility] Comment on above: Performed By: #### T S ####S PATHOLOGY [id number] [place], ABO and Rh group Nom (Bld) No Previous Results Normal [facility] Comment on above: Performed By: #### T S ####S PATHOLOGY QFKHFLMSMZ3269 [place], ABSC INT Negative Normal [facility] Comment on above: Performed By: #### T S ####S PATHOLOGY [id number] [place], XR CHEST 1 VIEW AP OR PAon 1 XR CHEST 1 VIEW AP OR PA Normal [facility] Coumadin Management: Warfari n Calcon 03-29-2017 INR Coag RelTime (Bld) Hospital lab Invalid Interpretation Code [facility] Work Phone: [phone] INR Coag RelTime (Bld) 2.5 to 3.5 Invalid Interpretation Code [facility] Work Phone: [phone] INR Coag RelTime (PPP) 2.5 {INR} Invalid Interpretation Code [facility] Work Phone: [phone] international normalized ratio (INR) range 2.5 to 3.5 Invalid Interpretation Code [facility] Work Phone: [phone] Prothrombin time (PT) Coag time (PPP) 25.9 s Invalid Interpretation Code [facility] Work Phone: [phone] Lab Report: Prothrombin Time w/INRon 03-29-2017 Prothrombin time (PT) Coag time (PPP) 25.9 s High 11.7-14.9 [facility] Work Phone: [phone] Coumadin Management: Anthony hallman Calcon 03-16-2017 INR Coag RelTime (Bld) 2.5 to 3.5 Invalid Interpretation Code [facility] Work Phone: [phone] Coumadin Management: Anthony hallman Calcon 03-15-2017 INR Coag RelTime (Bld) Hospital lab Invalid Interpretation Code [facility] Work Phone: [phone] Prothrombin time (PT) Coag time (PPP) 24.8 s Invalid Interpretation Code [facility] Work Phone: [phone] Lab Report: Prothrombin Time w/INRon 03-15-2017 INR Coag RelTime (PPP) 2.4 {INR} Invalid Interpretation Code [facility] Work Phone: [phone] Prothrombin time (PT) Coag time (PPP) 24.8 s High 11.7-14.9 [facility] Work Phone: [phone] Coumadin Management: Anthony hallman Calcon 03-09-2017 INR Coag RelTime (Bld) Hospital lab Invalid Interpretation Code [facility] Work Phone: [phone] INR Coag RelTime (PPP) 2.1 {INR} Invalid Interpretation Code [facility] Work Phone: international normalized ratio (INR) range 2.5 to 3.5 Invalid Interpretation Code [facility] Work Phone: [phone] Prothrombin time (PT) Coag time (PPP) 22.5 s Invalid Interpretation Code [facility] Work Phone: [phone] Lab Report: Prothrombin Time w/INRon 03-09-2017 Prothrombin time (PT) Coag time (PPP) 22.5 s High 11.7-14.9 [facility] Work Phone: [phone] Coumadin Management: Xinguoduari n Calcon 03-06-2017 INR Coag RelTime (Bld) Fingerstick Invalid Interpretation Code [facility] Work Phone: [phone] INR Coag RelTime (Bld) 2.5 to 3.5 Invalid Interpretation Code [facility] Work Phone: [phone] INR Coag RelTime (PPP) 2.0 {INR} Invalid Interpretation Code [facility] Work Phone: [phone] Prothrombin time (PT) Coag time (PPP) 24.4 s Invalid Interpretation Code [facility] Work Phone: [phone] Coumadin Management: Xinguoduari n Calcon 03-02-2017 Coagulation tissue factor induced in platelet poor plasma 19.5 s Invalid Interpretation Code [facility] Work Phone: [phone] INR in blood by coagulation Fingerstick Invalid Interpretation Code [facility] Work Phone: [phone] INR in blood by coagulation 1.6 {INR} Invalid Interpretation Code [facility] Work Phone: [phone] INR in blood by coagulation 2.5 to 3.5 Invalid Interpretation Code [facility] Work Phone: [phone] Coumadin Management: Xinguoduari n Calcon 02-21-2017 Coagulation tissue factor induced in platelet poor plasma 0 s Invalid Interpretation Code [facility] Work Phone: INR in blood by coagulation Fingerstick Invalid Interpretation Code [facility] Work Phone: [phone] INR in blood by coagulation 1.6 {INR} Invalid Interpretation Code [facility] Work Phone: [phone] INR in blood by coagulation 2.5 to 3.5 Invalid Interpretation Code [facility] Work Phone: Coumadin Management: Xinguodusridevi hallman Calcon 02-13-2017 Coagulation tissue factor induced in platelet poor plasma 0 s Invalid Interpretation Code [facility] Work Phone: INR in blood by coagulation Fingerstick Invalid Interpretation Code [facility] Work Phone: INR in blood by coagulation 2.4 {INR} Invalid Interpretation Code [facility] Work Phone: INR in blood by coagulation 2.5 to 3.5 Invalid Interpretation Code [facility] Work Phone: Coumadin Management: Xinguodusridevi hallman Calcon 02-09-2017 INR Coag RelTime (Bld) Fingerstick [facility] Work Phone: INR Coag RelTime (PPP) 2.7 {INR} [facility] Work Phone: international normalized ratio (INR) range 2.5 to 3.5 [facility] Work Phone: Prothrombin time (PT) Coag time (PPP) 32.7 s [facility] Work Phone: Coumadin Management: Xinguodusridevi hallman Calcon 02-06-2017 Coagulation tissue factor induced in platelet poor plasma 0 s Invalid Interpretation Code [facility] Work Phone: INR in blood by coagulation Fingerstick Invalid Interpretation Code [facility] Work Phone: INR in blood by coagulation 5.2 {INR} Invalid Interpretation Code [facility] Work Phone: INR in blood by coagulation 2.5 to 3.5 Invalid Interpretation Code [facility] Work Phone: Coumadin Management: Xinguodusridevi hallman Calcon 01-29-2017 INR Coag RelTime (Bld) Hospital lab [facility] Work Phone: INR Coag RelTime (PPP) 2.8 {INR} [facility] Work Phone: international normalized ratio (INR) range 2.5 to 3.5 [facility] Work Phone: Prothrombin time (PT) Coag time (PPP) 0 s [facility] Work Phone: [phone] Coumadin Management: Anthony n Calcon 11-08-2016 INR Coag (Bld) [Relative time] Hospital lab Invalid Interpretation Code [facility] Work Phone: [phone] INR Coag (PPP) [Relative time] 2.8 {INR} [facility] Work Phone: [phone] INR in blood by coagulation 2.8 {INR} Invalid Interpretation Code [facility] Work Phone: [phone] INR in blood by coagulation 2.5 to 3.5 Invalid Interpretation Code [facility] Work Phone: [phone] international normalized ratio (INR) range 2.5 to 3.5 [facility] Work Phone: [phone] PT Coag (PPP) [Time] 28.4 s Invalid Interpretation Code [facility] Work Phone: [phone] Lab Report: Prothrombin Time w/INRon 11-08-2016 PT Coag (PPP) [Time] 28.4 s High 11.7-14.[address] [facility] Work Phone: [phone] Office Visit: [facility] 11-09-19 Documentation of current medications (procedure) Done Invalid Interpretation Code [facility] Work Phone: [phone] Fall risk assessment No Invalid Interpretation Code [facility] Work Phone: [phone] Protein mass conc Done Invalid Interpretation Code [facility] Work Phone: [phone] Clinical Lists Update Left ventricular Ejection fraction 65 % Invalid Interpretation Code [facility] Work Phone: [phone] Office Visit: continue on Au gmentin until surgeryon 09-27-2016 Adolescent depression screening assessment Adolescent depression screening assessment Invalid Interpretation Code [facility] Work Phone: Adult depression screening assessment Adolescent depression screening assessment Invalid Interpretation Code [facility] Work Phone: [phone] Documentation of current medications (procedure) Done Invalid Interpretation Code [facility] Work Phone: Coumadin Management: Warfari n Calcon 09-25-2016 Coagulation tissue factor induced in platelet poor plasma 24.7 s Invalid Interpretation Code [facility] Work Phone: [phone] INR in blood by coagulation Hospital lab Invalid Interpretation Code [facility] Work Phone: [phone] INR in blood by coagulation 2.3 {INR} Invalid Interpretation Code [facility] Work Phone: [phone] INR in blood by coagulation 2.5 to 3.5 Invalid Interpretation Code [facility] Work Phone: [phone] Lab Report: Basic Metabolic Profile (BMP)on 09-25-2016 Anion gap 4 mmol/L Low 5-15 [facility] Work Phone: [phone] Anion gap 4 molar conc 4 Low 5-15 [facility] Work Phone: [phone] Anion gap [Moles/Vol] 4 mmol/L Low 5-15 [facility] Work Phone: [phone] BUN/Creatinine Ratio 14.2 RATIO Invalid Interpretation Code 10-20 [facility] Work Phone: Calcium 8.7 mg/dL Invalid Interpretation Code 8.5-10.1 [facility] Work Phone: [phone] Chloride 105 mmol/L Invalid Interpretation Code 98-107 [facility] Work Phone: [phone] CO2 28.0 mmol/L Invalid Interpretation Code 21.0-32.0 [facility] Work Phone: [phone] CO2 (BldV) [Partial pressure] 28.0 mmol/L Invalid Interpretation Code 21.0-32.0 [facility] Work Phone: [phone] Creatinine 1.20 mg/dL Invalid Interpretation Code 0.70-1.30 [facility] Work Phone: [phone] eGFR (non-black) 77 mL/min/{1.73_m2} Invalid Interpretation Code >60 [facility] Work Phone: [phone] eGFR (non-black) 63 mL/min/{1.73_m2} Invalid Interpretation Code >60 [facility] Work Phone: [phone] EST GFR - AA 77 mL/min Invalid Interpretation Code >60 [facility] Work Phone: [phone] Glucose 143 mg/dL High 70-110 [facility] Work Phone: [phone] Glucose [Mass/Vol] 143 mg/dL High 70-110 [facility] Work Phone: [phone] Potassium 4.2 mmol/L Invalid Interpretation Code 3.5-5.1 [facility] Work Phone: Sodium 137 mmol/L Invalid Interpretation Code 136-145 [facility] Work Phone: Urea nitrogen 17 mg/dL Invalid Interpretation Code 7-18 [facility] Work Phone: Lab Report: Prothrombin Time w/INRon 09-25-2016 Coagulation tissue factor induced in platelet poor plasma 24.7 s High 11.7-14.9 [facility] Work Phone: Office Visit: E coli bactere irene/diverticulitis/cystitis/enterovesc. fistulaon 08-07-2016 Adult depression screening assessment Adult depression screening assessment Invalid Interpretation Code [facility] Work Phone: PHQ-9 quick depression assessment panel [Reported.PHQ] Adult depression screening assessment Invalid Interpretation Code [facility] Work Phone: [phone] Tobacco smoking status NHIS Former smoker Invalid Interpretation Code [facility] Work Phone: [phone] Tobacco use CPHS Former smoker Invalid Interpretation Code [facility] Work Phone: Lab Report: Basic Metabolic Profile (BMP)on 08-06-2016 Creatinine 72.20 mL/min Invalid Interpretation Code [facility] Work Phone: Lab Report: Erythrocyte Sed Rateon 08-06-2016 Erythrocyte sedimentation rate 41 mm/h High 0-20 [facility] Work Phone: Replaced Document: (P) CBC W /Diff, Automatedon 08-06-2016 Absolute Neut 9.1 X10 3/UL High 2.0-7.7 [facility] Work Phone: [phone] Basophils/100 leukocytes 0.3 % Invalid Interpretation Code 0-1 [facility] Work Phone: Basophils/100 WBC (Bld) 0.3 % 0-1 [facility] Work Phone: Eosinophils/100 leukocytes 1.5 % Invalid Interpretation Code 0-5 [facility] Work Phone: Eosinophils/100 WBC (Bld) 1.5 % 0-5 [facility] Work Phone: [phone] Erythrocyte distribution width (RBC) [Ratio] 43.4 fL 35.1-43.9 [facility] Work Phone: [phone] Erythrocyte distribution width (RBC) [Ratio] 13.6 % 11.6-14.6 [facility] Work Phone: [phone] Erythrocyte distribution width Auto Ratio (RBC) 43.4 fL Invalid Interpretation Code 35.1-43.9 [facility] Work Phone: Erythrocytes (RBC) 5.09 10*6/uL Invalid Interpretation Code 4.6-6.2 [facility] Work Phone: Hematocrit (Bld) [Volume fraction] 45.0 % 40-54 [facility] Work Phone: [phone] Hematocrit (HCT) 45.0 % Invalid Interpretation Code 40-54 [facility] Work Phone: Hemoglobin (HGB) 15.3 g/dL Invalid Interpretation Code 13.0-16.5 [facility] Work Phone: Immature granulocytes (Bld) [#/Vol] 0.200 % Invalid Interpretation Code 0.0-0.9 [facility] Work Phone: immature granulocytes, percentage of total cells, blood 0.200 % Invalid Interpretation Code 0.0-0.9 [facility] Work Phone: Immature granulocytes/100 WBC (Bld) 0.200 % Invalid Interpretation Code 0.0-0.9 [facility] Work Phone: Lymphocytes 1.40 X10 3/UL Invalid Interpretation Code 0.83-4.51 [facility] Work Phone: Lymphocytes (Bld) [#/Vol] 1.40 X10 3/UL 0.83-4.51 [facility] Work Phone: Lymphocytes/100 leukocytes 11.4 % Low 19-41 [facility] Work Phone: Lymphocytes/100 WBC (Bld) 11.4 % Low 19-41 [facility] Work Phone: [phone] MCH 30.1 pg Invalid Interpretation Code 27.0-32.0 [facility] Work Phone: MCH (RBC) [Entitic mass] 30.1 pg 27.0-32.0 [facility] Work Phone: [phone] MCHC 34.0 G/GL Invalid Interpretation Code 32-36 [facility] Work Phone: MCHC (RBC) [Mass/Vol] 34.0 G/GL 32-36 [facility] Work Phone: [phone] MCV 88.4 fL Invalid Interpretation Code 80-94 [facility] Work Phone: MCV (RBC) [Entitic vol] 88.4 fL 80-94 [facility] Work Phone: [phone] Monocytes/100 leukocytes 12.2 % High 0-10 [facility] Work Phone: Monocytes/100 WBC (Bld) 12.2 % High 0-10 [facility] Work Phone: [phone] neutrophil count, blood 9.1 X10 3/UL High 2.0-7.7 [facility] Work Phone: Neutrophils (Bld) [#/Vol] 9.1 X10 3/UL High 2.0-7.7 [facility] Work Phone: Neutrophils Auto #/vol (Bld) 9.1 X10 3/UL High 2.0-7.7 [facility] Work Phone: Neutrophils/100 leukocytes 74.4 % High 47-70 [facility] Work Phone: Neutrophils/100 WBC (Bld) 74.4 % High 47-70 [facility] Work Phone: [phone] Platelet mean volume (Bld) [Entitic vol] 10.4 fL 6.2-12.0 [facility] Work Phone: [phone] Platelets 306 10*3/mm3 Invalid Interpretation Code 150-450 [facility] Work Phone: Platelets (Bld) [#/Vol] 306 10*3/mm3 150-450 [facility] Work Phone: [phone] PMV by Jojo 10.4 fL Invalid Interpretation Code 6.2-12.0 [facility] Work Phone: [phone] RBC (Bld) [#/Vol] 5.09 10*6/uL 4.6-6.2 [facility] Work Phone: [phone] RDW SD 43.4 fL Invalid Interpretation Code 35.1-43.9 [facility] Work Phone: [phone] RDW-CA 13.6 % Invalid Interpretation Code 11.6-14.6 [facility] Work Phone: [phone] red blood cell distribution width, size density 43.4 fL Invalid Interpretation Code 35.1-43.9 [facility] Work Phone: [phone] WBC (Bld) [#/Vol] 12.2 10*3/uL High 4.4-11.0 [facility] Work Phone: [phone] WBC (Leukocytes) 12.2 10*3/uL High 4.4-11.0 [facility] Work Phone: Lab Report: Lipid Profileon 05-10-2016 Cholesterol 205 mg/dL High 200 [facility] Work Phone: HDL Cholesterol 34 mg/dL Low [facility] Work Phone: LDL Cholesterol 141 mg/dL High 0-130 [facility] Work Phone: Triglyceride 150 mg/dL Invalid Interpretation Code [facility] Work Phone: [phone] very low density lipoproteins 30 mg/dL Invalid Interpretation Code 5-40 [facility] Work Phone: Office Visit: [facility] 05-10-20 16 Dietary management education, guidance, and counseling (procedure) yes Invalid Interpretation Code [facility] Work Phone: Lab Report: (P) Lyme Screen W/Reflex WBon 09-17-2015 Borrelia burgdorferi (Lyme Disease,) DNA 1.07 High 0.00-0.90 [facility] Work Phone: Lab Report: Lyme Screen W/Re flex WBon 09-17-2015 LYME DISEASE INTERPRETATION REF LAB Invalid Interpretation Code [facility] Work Phone: LYME SCN INTERP REF LAB Invalid Interpretation Code [facility] Work Phone: [phone] Lab Report: Rapid Plasmin Re agin (RPR)on 09-17-2015 Reagin Ab VDRL Qn (S) NONREACTIVE Invalid Interpretation Code NONREACTIVE [facility] Work Phone: Reagin antibody presence NONREACTIVE Invalid Interpretation Code NONREACTIVE [facility] Work Phone: Microbiology: Culture, Blood (WB)on 09-17-2015 Bacteria culture BCNo growth in 5 days. Invalid Interpretation Code [facility] Work Phone: Microbiology: Culture, Wound on 09-16-2015 CUW . Invalid Interpretation Code [facility] Work Phone: wound culture . Invalid Interpretation Code [facility] Work Phone: Replaced Document: (P) SAUL w / Reflex Mult Confirmon 09-15-2015 SAUL Titer Negative Invalid Interpretation Code Negative [facility] Work Phone: Nuclear Ab IA Qn (S) Negative Invalid Interpretation Code Negative [facility] Work Phone: Clinical Lists Updateon 09-02 Alanine aminotransferase (ALT) 60 U/L Invalid Interpretation Code [facility] Work Phone: Alkaline phosphatase (ALP) 103 U/L Invalid Interpretation Code [facility] Work Phone: ALP (Bld) [Catalytic activity/Vol] 103 U/L Invalid Interpretation Code [facility] Work Phone: [phone] Aspartate aminotransferase (AST) 34 U/L Invalid Interpretation Code [facility] Work Phone: Bilirubin (total) 0.9 mg/dL Invalid Interpretation Code [facility] Work Phone: Clinical Lists Updateon 09-02 Left ventricular Ejection fraction 53 % Invalid Interpretation Code [facility] Work Phone: Lab Report: CRPon 09-13-2015 C reactive protein (CRP) 4.71 mg/dL High Units converted. See lab report for original value. [facility] Work Phone: Lab Report: Magnesiumon 09-02 Magnesium 1.9 mg/dL Invalid Interpretation Code 1.8-2.4 [facility] Work Phone: Lab Report: CBC W/Diff, Auto matedon 09-11-2015 complete blood count (CBC), comments SLIDE SCANNED Invalid Interpretation Code [facility] Work Phone: Pathologist (cervix/vaginal) May foll Invalid Interpretation Code [facility] Work Phone: SMEAR COMMENT SLIDE SCANNED Invalid Interpretation Code [facility] Work Phone: Lab Report: Liver Profileon 09-11-2015 Albumin 3.5 g/dL Invalid Interpretation Code 3.4-5.0 [facility] Work Phone: Bilirubin (direct) 0.17 mg/dL Invalid Interpretation Code 0.00-0.30 [facility] Work Phone: Globulin 4.2 g/dL High 2.3-3.5 [facility] Work Phone: Globulin (S) [Mass/Vol] 4.2 g/dL High 2.3-3.5 [facility] Work Phone: [phone] Protein 7.7 g/dL Invalid Interpretation Code 6.4-8.2 [facility] Work Phone: Lab Report: Rheumatoid Facto krishan 09-11-2015 rheumatoid factor < 10.0 Invalid Interpretation Code <15 [facility] Work Phone: [phone] Replaced Document: Lyndsey Willard 09-11-2015 Albumin Ql (U) 15 High Negative [facility] Work Phone: [phone] Bilirubin Ql (U) Negative Invalid Interpretation Code Negative [facility] Work Phone: [phone] Ketones (U) [Mass/Vol] Negative Invalid Interpretation Code Negative [facility] Work Phone: [phone] Mucus Ql (Urine sed) RARE [facility] Work Phone: [phone] NITRITE UR Negative Invalid Interpretation Code Negative [facility] Work Phone: [phone] Nitrite Urine Negative Invalid Interpretation Code Negative [facility] Work Phone: [phone] Occult Blood, urine 10 High Negative [facility] Work Phone: [phone] OCCULT BLOOD-UR 10 High Negative [facility] Work Phone: [phone] pH (U) 5.0 [pH] 5.0 - 8.0 [facility] Work Phone: [phone] specific gravity, urine 1.020 Invalid Interpretation Code 1.002-1.030 [facility] Work Phone: Urine, bacteria in sediment RARE /hpf Invalid Interpretation Code None Seen [facility] Work Phone: Urine, bilirubin presence Negative Invalid Interpretation Code Negative [facility] Work Phone: Urine, clarity Sl. Cloudy Invalid Interpretation Code Clear [facility] Work Phone: Urine, color Yellow Invalid Interpretation Code Yellow [facility] Work Phone: Urine, epithelial cells in sediment 0 SEEN Invalid Interpretation Code 0-5 [facility] Work Phone: Urine, erythrocytes in sediment by volume 0-5 SEEN Invalid Interpretation Code 0-5 [facility] Work Phone: Urine, glucose presence Normal mg/dl Invalid Interpretation Code Normal [facility] Work Phone: Urine, ketones presence Negative Invalid Interpretation Code Negative [facility] Work Phone: Urine, leukocyte esterase presence Negative Invalid Interpretation Code Negative [facility] Work Phone: [phone] Urine, mucus presence in sediment RARE Invalid Interpretation Code [facility] Work Phone: [phone] Urine, pH 5.0 [pH] Invalid Interpretation Code 5.0 - 8.0 [facility] Work Phone: Urine, protein 15 mg/dL High Negative [facility] Work Phone: [phone] UROBILI Normal mg/dl Invalid Interpretation Code Normal [facility] Work Phone: [phone] urobilinogen, urine, by dipstick Normal mg/dl Invalid Interpretation Code Normal [facility] Work Phone: WBC 0 SEEN Invalid Interpretation Code 0-5 [facility] Work Phone: [phone] WBC (Bld) [#/Vol] 0 SEEN 0-5 [facility] Work Phone: [phone] WBC (Leukocytes) 0 SEEN Invalid Interpretation Code 0-5 [facility] Work Phone: Office Visit: 6 month F/U, [facility] F/Uon 06-30-2015 Tobacco smoking status NHIS Never Invalid Interpretation Code [facility] Work Phone: Microbiology: Culture, Urine on 06-17-2015 CUUR Urine CultureCulture exhibits no growth. Invalid Interpretation Code [facility] Work Phone: [phone] GE use only - for [employer] import when terms are not otherwise specified Urine CultureCulture exhibits no growth. Invalid Interpretation Code [facility] Work Phone: Lab Report: Comprehensive Me tabolic Profilon 06-15-2015 Albumin/Globulin Ratio 0.8 {ratio} Low 0.9-2.4 [facility] Work Phone: Lab Report: Lactic Acidon Lactate 1.3 mmol/L Invalid Interpretation Code 0.4-2.0 [facility] Work Phone: Lab Report: Partial Thrombop last Timeon 06-15-2015 aPTT 45.1 s High 24.1-36.2 [facility] Work Phone: Office Visit: [facility] 04-14-20 15 General cardiovascular disease 10Y risk [#] Mitchell 27 % Invalid Interpretation Code [facility] Work Phone: Replaced Document: Midmark E CG Observationson 04-14-2015 BUN (urea nitrogen) Sinus Rhythm -Right bundle branch block. ABNORMAL Invalid Interpretation Code [facility] Work Phone: EKG QRS axis 24 deg Invalid Interpretation Code [facility] Work Phone: P Morris 90 deg Invalid Interpretation Code [facility] Work Phone: P wave axis, electrocardiogram 90 deg Invalid Interpretation Code [facility] Work Phone: [phone] UT Interval 188 ms Invalid Interpretation Code [facility] Work Phone: UT interval, electrocardiogram 188 ms Invalid Interpretation Code [facility] Work Phone: Pulse (Heart Rate) 69 /min Invalid Interpretation Code [facility] Work Phone: [phone] QRS axis, electrocardiogram 24 deg Invalid Interpretation Code [facility] Work Phone: QRS Duration 150 ms Invalid Interpretation Code [facility] Work Phone: QRS duration, electrocardiogram 150 ms Invalid Interpretation Code [facility] Work Phone: QT Interval new path ms Invalid Interpretation Code [facility] Work Phone: QT interval, electrocardiogram new path ms Invalid Interpretation Code [facility] Work Phone: T Morris 41 deg Invalid Interpretation Code [facility] Work Phone: T wave axis, electrocardiogram 41 deg Invalid Interpretation Code [facility] Work Phone: [phone] Urea nitrogen [Mass/Vol] Sinus Rhythm -Right bundle branch block. ABNORMAL [facility] Work Phone: Office Visiton 10-12-2014 cardiac risk group B Invalid Interpretation Code [facility] Work Phone: Lab Report: B12on 08-27-2013 Cobalamin (Vitamin B12) [Mass/Vol] 794 pg/mL Normal 211-911 [facility] Work Phone: [phone] vitamin b12, serum 794 pg/mL Normal 211-911 [facility] Work Phone: Lab Report: CBCDon Absolute Neutrophil count 8.8 X10 3/UL High 2.0-7.7 [facility] Work Phone: ANC 8.8 X10 3/UL High 2.0-7.7 [facility] Work Phone: [phone] Lab Report: TSHon 08-26-2013 Thyroid stimulating hormone (TSH) 2.26 u[iU]/mL Normal 0.358-3.74 [facility] Work Phone: Lab Report: T4on 12-18-2011 Thyroxine (T4) 8.1 ug/dL Normal 4.5-12.1 [facility] Work Phone: Replaced Document: Midmark E CG Observationson 12-11-2011 Pulse (Heart Rate) 446 ms Invalid Interpretation Code [facility] Work Phone: Vital Signs Date Time Vital Sign Value Performing Clinician Facility 08-10-2023 13:30-0500 Diastolic blood pressure 57 mm[Hg] Wiley Covington MD Work Phone: [facility] 08-10-2023 13:30-0500 Heart rate 77 /min Wiley Covington MD Work Phone: [facility] 08-10-2023 13:30-0500 Respiratory rate 20 /min Wiley Covington MD Work Phone: [facility] 08-10-2023 13:30-0500 SaO2% (BldA) [Mass fraction] 94 % Wiley Covington MD Work Phone: [facility] 08-10-2023 13:30-0500 Systolic blood pressure 113 mm[Hg] Wiley Covington MD Work Phone: [facility] 06-19-2023 10:31-0500 Body temperature 98.01 [degF] Wiley Covington MD Work Phone: [facility] 06-19-2023 10:31-0500 Diastolic blood pressure 56 mm[Hg] Wiley Covington MD Work Phone: [phone] [address] 06-19-2023 10:31-0500 Heart rate 55 /min Wiley Covington MD Work Phone: [phone] [address] 06-19-2023 10:31-0500 Respiratory rate 18 /min Wiley Covington MD Work Phone: [phone] [address] 06-19-2023 10:31-0500 SaO2% (BldA) [Mass fraction] 100 % Wiley Covington MD Work Phone: [phone] [address] 06-19-2023 10:31-0500 Systolic blood pressure 116 mm[Hg] Wiley Covington MD Work Phone: [phone] [address] 06-17-2023 05:49-0500 Body mass index (BMI) [Ratio] 28.84 kg/m2 Wiley Covington MD Work Phone: [phone] [address] 06-17-2023 05:49-0500 Body weight 96.45 kg Wiley Covington MD Work Phone: [phone] [place] [address] Comment on above: Standing 06-06-2023 23:07-0500 Body height 182.9 cm Wiley Covington MD Work Phone: [phone] [address] Comment on above: estimated 11-08-2016 07:36-0400 BMI (Body Mass Index) 31.35 kg/m2 [facility] Work Phone: 11-08-2016 07:36-0400 BP Diastolic 68 mm[Hg] [facility] Work Phone: 11-08-2016 07:36-0400 BP Systolic 130 mm[Hg] Renee Jade RN [facility] Work Phone: 11-08-2016 07:36-0400 Height 187.96 cm Renee Jade RN [facility] Work Phone: 11-08-2016 07:36-0400 Pulse (Heart Rate) 76 /min Renee Jade RN [facility] Work Phone: 11-08-2016 07:36-0400 Respiratory Rate 20 /min Renee Jade RN [facility] Work Phone: 11-08-2016 07:36-0400 Weight 110.77 kg Renee Jade RN [facility] Work Phone: 09-27-2016 09:41-0400 BMI (Body Mass Index) 30.96 kg/m2 Jovana Signs MD [facility] Work Phone: 09-27-2016 09:41-0400 Body Temperature 97.5 [degF] Jovana Signs MD [facility] Work Phone: 09-27-2016 09:41-0400 Body weight 109.41 kg Renee Jade RN [facility] Work Phone: 09-27-2016 09:41-0400 BP [...] Phone: 09-27-2016 09:41-0400 Pulse Oximetry 97 % Jvoana Signs MD [facility] Work Phone: 09-27-2016 09:41-0400 Respiratory Rate 20 /min Jovana Signs MD [facility] Work Phone: 09-27-2016 09:41-0400 Weight 109.41 kg Jovana Signs MD [facility] Work Phone: 08-06-2016 15:38-0500 Body surface area Derived from formula 72.20 mL/min Renee Jade RN [facility] Work Phone: 05-10-2016 13:44-0500 BSA (Body Surface Area) 2.34 m2 Jovana Signs MD [facility] Work Phone: 04-14-2015 13:10-0500 Heart rate 69 /min Renee Jade RN [facility] Work Phone: 12-11-2011 13:40-0400 Heart rate 446 ms Renee Jade RN [facility] Work Phone: 06-12-2011 13:43-0500 BP Diastolic 62 mm[Hg] Jovana Signs MD [facility] Work Phone: 06-12-2011 13:43-0500 BP Systolic 130 mm[Hg] Jovana Signs MD [facility] Work Phone: Encounters Encounter Date Encounter Type Care Provider Facility Start: 03-30-2025 ambulatory [facility] Facility: [facility] Start: 02-27-2025 End: 02-27-2025 Emergency department patient visit Reina Carey Facility:[facility] Start: 01-02-2025 ambulatory Kuldeep Austin [employer] Facility :[facility] Start: 12-16-2024 End: 12-16-2024 ambulatory [facility] Facility:[facility] Start: 12-16-2024 End: 12-16-2024 ambulatory Kuldeep Austin [employer] Facility:[facility] Start: 11-10-2024 End: 11-10-2024 ambulatory Kuldeep Austin [employer] Facility:[facility] Start: 11-10-2024 End: 11-10-2024 ambulatory Kuldeep Austin [employer] Facility:[facility] Start: 10-11-2024 End: 10-11-2024 Emergency department patient visit Louie Burns Facility:[facility] Start: 09-26-2024 ambulatory Louie Burns Facility: [facility] Start: 08-25-2024 ambulatory Louie Burns Facility: [facility] Start: 08-23-2024 ambulatory Krys Bull Facility :[facility] Start: 08-23-2024 End: 08-27-2024 Evaluation and management of inpatient Krys Bull Facility:[facility] Start: 07-11-2024 End: 07-11-2024 ambulatory Louie Burns Facility:[facility] Start: 06-17-2024 ambulatory LOUIE BURNS Facilit y:[facility] Start: 05-09-2024 End: 05-09-2024 Emergency department patient visit Louie Burns Facility:[facility] Start: 11-29-2023 ambulatory ASHA T BREDEHOEFT Facil ity:[facility] Start: 08-16-2023 ambulatory ASHA T BREDEHOEFT Facil ity:[facility] Start: 08-10-2023 ambulatory LOUIE BURNS Facilit y:[facility] Start: 08-10-2023 End: 08-10-2023 Subsequent hospital visit by physician Wiley Covington MD Work Phone: Cardiovascular Imaging Lab [facility] Comment on above: Arrived Start: 06-06-2023 [...] Facili ty:[facility] Start: 09-28-2016 End: 09-29-2016 Ambulatory [facility] Facility:[facility] Procedures Date Procedure Procedure Detail Performing Clinician Start: 06-17-2024 Follow-up visit Follow-up DAYNA CHAPMAN Start: 08-10-2023 Transesophageal echocardiography Wiley Covington [...] 06-15-2023 Assay of magnesium Shirley M Rossi WICK TENDER-STAVE LOG CUT OFF SAW OPERATOR Work Phone: Start: 06-14-2023 CONTINUOUS CARDIAC MONITORING STRIP Other Other Start: 06-14-2023 Thromboplastin time partial plasma/whole blood Heike Milan MD Work Phone: Start: 06-14-2023 CONTINUOUS CARDIAC MONITORING STRIP Other Other Start: 06-14-2023 Radiologic exam chest single view Wiley Covington MD Work Phone: Start: 06-14-2023 Assay of magnesium Shirley M Rossi WICK TENDER-STAVE LOG CUT OFF SAW OPERATOR Work Phone: Start: 06-13-2023 CONTINUOUS CARDIAC MONITORING STRIP Other Other Start: 06-13-2023 Thromboplastin time partial plasma/whole blood Heike Milan MD Work Phone: Start: 06-13-2023 Drug screen quantitative gentamicin Haley M Timoteo [facility] Start: 06-13-2023 Blood count platelet automated Heike Milan MD Work Phone: Start: 06-13-2023 Thromboplastin time partial plasma/whole blood Heike Milan MD Work Phone: Start: 06-13-2023 Assay of magnesium Shirley M Rossi WICK TENDER-STAVE LOG CUT OFF SAW OPERATOR Work Phone: Start: 06-12-2023 Drug screen quantitative gentamicin Rigoberto Landon [facility] Start: 06-12-2023 Thromboplastin time partial plasma/whole blood Heiek Milan MD Work Phone: Start: 06-12-2023 Thromboplastin [...] screen quantitative gentamicin Kelvin Luis Angel Gisselle [facility] Work Phone: Start: 06-10-2023 Thromboplastin time partial [...] Phone: Start: 06-08-2023 Drug screen quantitative gentamicin Whitney J Vulvara [facility] Start: 06-07-2023 Thromboplastin time partial plasma/whole blood [...] Follow Up Appt 1 year Louie Hedrick NURSERYMAN ASSISTANT-C Start: 05-10-2016 End: 05-10-2016 Follow Up Appt 6 months Louie Jailene Hedrick NURSERYMAN ASSISTANT -C Start: 05-10-2016 End: 05-10-2017 INR in Platelet poor plasma by Coagulation assay Louie Jeffder NURSERYMAN ASSISTANT-C Start: 05-10-2016 End: 05-11-2016 Lipid 1996 panel - Serum or Plasma Louie Jeffder NURSERYMAN ASSISTANT-C Start: 05-10-2016 End: 05-10-2016 MMM Louie Jeffder NURSERYMAN ASSISTANT-C Start: 05-10-2016 End: 05-10-2016 PFM Louie Jeffder NURSERYMAN ASSISTANT-C Start: 05-10-2016 End: 05-10-2016 Dietary management education, guidance, and counseling Renee Jade RN Start: 05-10-2016 End: 05-10-2017 Coagulation factor induced.INR assay in platelet poor plasma Louie Hedrick NURSERYMAN ASSISTANT-C Start: 05-10-2016 End: 05-10-2016 Follow Up Appt 1 year Louie Hedrick NURSERYMAN ASSISTANT-C Start: 05-10-2016 End: 05-10-2016 Follow Up Appt 6 months Louie Hedrick NURSERYMAN ASSISTANT -C Start: 05-10-2016 End: 05-11-2016 Lipid panel [AGGREGATE] Louie Hedrick NURSERYMAN ASSISTANT -C Start: 05-10-2016 End: 05-10-2016 MMM Louie Hedrick NURSERYMAN ASSISTANT-C Start: 05-10-2016 End: 05-10-2016 PFM Louie Hedrick NURSERYMAN ASSISTANT-C Start: 11-08-2015 End: 11-08-2015 Follow Up Appt [...] EDT Office Visit [facility] [address] [place] [address] Titi Sabillon MD (John) [address] [place] [phone] [facility] Start: 08-16-2023 End: 08-16-2023 Telemedicine consultation with patient 08/16/2023 10:30 AM EDT Telemedicine Infectious Diseases Care [facility] [address] [place] [address], [place] [phone] Asha Bundy MD [address] [place] [address], [place] [phone] Infectious Diseases Care [facility] Start: 08-02-2023 End: 08-02-2023 Patient encounter procedure 08/02/2023 10:00 AM EST Office Visit [facility]ious [facility] [address] [place] [address], [place] [phone] Asha Bundy MD [address] [place] [phone] Infectious Diseases [facility] Start: 07-30-2023 End: 07-30-2023 Patient encounter procedure 07/30/2023 10:00 AM EST Office Visit [facility] [address] [place] [phone] Titi Sabillon MD (John) [address] [place] [phone] [facility] Start: 07-26-2023 End: 07-26-2023 Patient encounter procedure 07/26/2023 11:00 AM EST Appointment Cardi[facility] [address] [place] [phone] Wiley Covington MD [address] [place], [place] [id number] [place] [phone] [facility] Start: 07-23-2023 End: 08-10-2023 Transesophageal echocardiography ECHOCARDIOGRAM TRANSESOPHAGEAL (FER) Echocardiography Routine Acute bacterial endocarditis Expected: 07/23/2023, Expires: 08/10/2023 [facility] Work Phone: Comment on above: Expected: 07/23/2023, Expires: 4 Start: 06-15-2023 End: 06-15-2024 Transesophageal echocardiography ECHOCARDIOGRAM TRANSESOPHAGEAL (FER) Echocardiography Routine Acute bacterial endocarditis Expected: 06/15/2023, Expires: 06/15/2024 [facility] Comment on above: Expected: 06/15/2023, Expires: 5 Start: 05-25-2017 End: 05-25-2017 Appointment Appointment [facility] Work Phone: Start: 05-14-2017 End: 05-14-2017 Appointment Appointment [facility] Work Phone: Start: 05-14-2017 End: 05-14-2017 Appointment Appointment [facility] Work Phone: Start: 05-10-2017 End: 05-11-2016 *Hepatic Function Panel *Hepatic Function Panel [facility] Work Phone: Start: 05-10-2017 End: 05-11-2016 Lipid panel [AGGREGATE] *Lipid Profile CC PCP [facility] Work Phone: Start: 05-10-2017 End: 05-11-2016 *Hepatic Function Panel *Hepatic Function Panel [facility] Work Phone: Start: 05-10-2017 End: 05-11-2016 Lipid panel [AGGREGATE] *Lipid Profile CC PCP [facility] Work Phone: Start: 11-08-2016 End: 11-08-2016 Follow Up Appt Other Follow Up Appt Other [facility] Work Phone: Start: 11-08-2016 End: 11-08-2016 INR Coag RelTime (PPP) *PT/INR - Standing Order [facility] Work Phone: Start: 11-08-2016 End: 11-08-2016 Appointment Appointment [facility] Work Phone: Start: 11-08-2016 End: 11-08-2016 Appointment Appointment [facility] Work Phone: Start: 11-08-2016 End: 11-08-2016 Coagulation factor induced.INR assay in platelet poor plasma *PT/INR - Standing Order [facility] Work Phone: Start: 11-08-2016 End: 11-08-2016 Follow Up Appt Other Follow Up Appt Other [facility] Work Phone: Start: 05-10-2016 End: 05-10-2016 Follow Up Appt 1 year Follow Up Appt 1 year [facility] Work Phone: Start: 05-10-2016 End: 05-10-2016 Follow Up Appt 6 months Follow Up Appt 6 months [facility] Work Phone: Start: 05-10-2016 End: 09-25-2016 INR Coag RelTime (PPP) [facility] Work Phone: Start: 05-10-2016 End: 05-11-2016 Lipid panel [AGGREGATE] *Lipid Profile CC PCP [facility] Work Phone: Start: 05-10-2016 End: 05-10-2016 MMM MMM [facility] Work Phone: Start: 05-10-2016 End: 05-10-2016 PFM PFM [facility] Work Phone: Start: 05-10-2016 End: 09-25-2016 Coagulation factor induced.INR assay in platelet poor plasma [facility] Work Phone: Start: 05-10-2016 End: 05-10-2016 Follow Up Appt 1 year Follow Up Appt 1 year [facility] Work Phone: Start: 05-10-2016 End: 05-10-2016 Follow Up Appt 6 months Follow Up Appt 6 months [facility] Work Phone: Start: 05-10-2016 End: 05-11-2016 Lipid panel [AGGREGATE] *Lipid Profile CC PCP [facility] Work Phone: Start: 05-10-2016 End: 05-10-2016 MMM MMM [facility] Work Phone: Start: 05-10-2016 End: 05-10-2016 PFM PFM [facility] Work Phone: Start: 11-08-2015 End: 11-08-2015 Follow Up Appt 6 months Follow Up Appt 6 months [facility] Work Phone: Start: 11-08-2015 End: 11-08-2015 MMM MMM [facility] Work Phone: Start: 11-08-2015 End: 11-08-2015 Follow Up Appt 6 months Follow Up Appt 6 months [facility] Work Phone: Start: 11-08-2015 End: 11-08-2015 MMM MMM [facility] Work Phone: Start: 06-08-2015 Pneumococcal vaccination PNEUMOCOCCAL VACCINE SERIES (2 of 2 - PCV) [facility] Start: 04-14-2015 End: 04-14-2015 *CBC with Differential *CBC with Differential [facility] Work Phone: Start: 04-14-2015 End: 04-14-2015 Ecg routine ecg w/least 12 lds w/i&r EKG (In office) [facility] Work Phone: Start: 04-14-2015 End: 04-14-2015 Follow Up Appt 6 months Follow Up Appt 6 months [facility] Work Phone: Start: 04-14-2015 End: 04-14-2015 INR Coag RelTime (PPP) *PT/INR - Standing Order [facility] Work Phone: Start: 04-14-2015 End: 04-14-2015 PFM PFM [facility] Work Phone: Start: 04-14-2015 End: 04-14-2015 *CBC with Differential *CBC with Differential [facility] Work Phone: Start: 04-14-2015 End: 04-14-2015 Coagulation factor induced.INR assay in platelet poor plasma *PT/INR - Standing Order [facility] Work Phone: Start: 04-14-2015 End: 04-14-2015 Electrocardiogram, complete EKG (In office) [facility] Work Phone: Start: 04-14-2015 End: 04-14-2015 Follow Up Appt 6 months Follow Up Appt 6 months [facility] Work Phone: Start: 04-14-2015 End: 04-14-2015 PFM PFM [facility] Work Phone: Start: 10-12-2014 End: 05-03-2016 *Hepatic Function Panel *Hepatic Function Panel [facility] Work Phone: Start: 10-12-2014 End: 10-12-2014 Follow Up Appt 6 months Follow Up Appt 6 months [facility] Work Phone: Start: 10-12-2014 End: 05-03-2016 Lipid panel [AGGREGATE] *Lipid Profile CC PCP [facility] Work Phone: Start: 10-12-2014 End: 10-12-2014 MMM MMM [facility] Work Phone: Start: 10-12-2014 End: 05-03-2016 *Hepatic Function Panel *Hepatic Function Panel [facility] Work Phone: Start: 10-12-2014 End: 10-12-2014 Follow Up Appt 6 months Follow Up Appt 6 months [facility] Work Phone: Start: 10-12-2014 End: 05-03-2016 Lipid panel [AGGREGATE] *Lipid Profile CC PCP [facility] Work Phone: Start: 10-12-2014 End: 10-12-2014 MMM MMM [facility] Work Phone: Start: 02-23-2014 End: 02-23-2014 Follow Up Appt 6 months Follow Up Appt 6 months [facility] Work Phone: Start: 02-23-2014 End: 02-23-2014 INR Coag RelTime (PPP) *PT/INR - Standing Order [facility] Work Phone: Start: 02-23-2014 End: 02-23-2014 PFM PFM [facility] Work Phone: Start: 02-23-2014 End: 02-23-2014 Coagulation factor induced.INR assay in platelet poor plasma *PT/INR - Standing Order [facility] Work Phone: Start: 02-23-2014 End: 02-23-2014 Follow Up Appt 6 months Follow Up Appt 6 months [facility] Work Phone: Start: 02-23-2014 End: 02-23-2014 PFM PFM [facility] Work Phone: Start: 08-20-2013 End: 04-14-2015 *Hepatic Function Panel *Hepatic Function Panel [facility] Work Phone: Start: 08-20-2013 End: 08-20-2013 Follow Up Appt 6 months Follow Up Appt 6 months [facility] Work Phone: Start: 08-20-2013 End: 04-14-2015 Lipid panel [AGGREGATE] *Lipid Profile CC PCP [facility] Work Phone: Start: 08-20-2013 End: 08-20-2013 MMM MMM [facility] Work Phone: Start: 08-20-2013 End: 04-14-2015 *Hepatic Function Panel *Hepatic Function Panel [facility] Work Phone: Start: 08-20-2013 End: 08-20-2013 Follow Up Appt 6 months Follow Up Appt 6 months [facility] Work Phone: Start: 08-20-2013 End: 04-14-2015 Lipid panel [AGGREGATE] *Lipid Profile CC PCP [facility] Work Phone: Start: 08-20-2013 End: 08-20-2013 MMM MMM [facility] Work Phone: Start: 01-16-2013 End: 01-16-2013 Echocardiography Echocardiogram (complete) [facility] Work Phone: Start: 01-16-2013 End: 01-16-2013 Follow Up Appt 6 months Follow Up Appt 6 months [facility] Work Phone: Start: 01-16-2013 End: 08-20-2013 Follow Up Appt Other Follow Up Appt Other [facility] Work Phone: Start: 01-16-2013 End: 01-17-2013 INR Coag RelTime (PPP) *PT/INR [facility] Work Phone: Start: 01-16-2013 End: 01-16-2013 PFM PFM [facility] Work Phone: Start: 01-16-2013 End: 01-17-2013 Coagulation factor induced.INR assay in platelet poor plasma *PT/INR [facility] Work Phone: Start: 01-16-2013 End: 01-16-2013 Echocardiography Echocardiogram (complete) [facility] Work Phone: Start: 01-16-2013 End: 01-16-2013 Follow Up Appt 6 months Follow Up Appt 6 months [facility] Work Phone: Start: 01-16-2013 End: 08-20-2013 Follow Up Appt Other Follow Up Appt Other [facility] Work Phone: Start: 01-16-2013 End: 01-16-2013 PFM PFM [facility] Work Phone: Start: 11-25-2012 End: 02-23-2014 INR Coag RelTime (PPP) *PT/INR - Standing Order [facility] Work Phone: Start: 11-25-2012 End: 02-23-2014 Coagulation factor induced.INR assay in platelet poor plasma *PT/INR - Standing Order [facility] Work Phone: Start: 09-18-2012 End: 08-20-2013 *Hepatic Function Panel *Hepatic Function Panel [facility] Work Phone: Start: 09-18-2012 End: 08-20-2013 Lipid panel [AGGREGATE] *Lipid Profile [facility] Work Phone: Start: 09-18-2012 End: 08-20-2013 *Hepatic Function Panel *Hepatic Function Panel [facility] Work Phone: Start: 09-18-2012 End: 08-20-2013 Lipid panel [AGGREGATE] *Lipid Profile [facility] Work Phone: Start: 06-10-2012 End: 06-10-2012 Echocardiography Echocardiogram (complete) [facility] Work Phone: Start: 06-10-2012 End: 06-10-2012 Follow Up Appt 6 months Follow Up Appt 6 months [facility] Work Phone: Start: 06-10-2012 End: 06-10-2012 Echocardiography Echocardiogram (complete) [facility] Work Phone: Start: 06-10-2012 End: 06-10-2012 Follow Up Appt 6 months Follow Up Appt 6 months [facility] Work Phone: Start: 04-04-2012 End: 06-10-2012 *Hepatic Function Panel *Hepatic Function Panel [facility] Work Phone: Start: 04-04-2012 End: 06-10-2012 Lipid panel [AGGREGATE] *Lipid Profile [facility] Work Phone: Start: 04-04-2012 End: 06-10-2012 *Hepatic Function Panel *Hepatic Function Panel [facility] Work Phone: Start: 04-04-2012 End: 06-10-2012 Lipid panel [AGGREGATE] *Lipid Profile [facility] Work Phone: Start: 02-26-2012 End: 06-06-2012 *Hepatic Function Panel *Hepatic Function Panel [facility] Work Phone: Start: 02-26-2012 End: 06-06-2012 *Hepatic Function Panel *Hepatic Function Panel [facility] Work Phone: Start: 12-11-2011 End: 12-18-2011 *BMP *BMP [facility] Work Phone: Start: 12-11-2011 End: 12-18-2011 *CBC with Differential *CBC with Differential [facility] Work Phone: Start: 12-11-2011 End: [...] 6 months Follow Up Appt 6 months [facility] Work Phone: Start: 12-11-2011 End: 12-18-2011 Lipid panel [AGGREGATE] *Lipid Profile [facility] Work Phone: Start: 12-11-2011 End: 12-18-2011 Magnesium *Magnesium [facility] Work Phone: Start: 12-11-2011 End: 12-18-2011 Thyroid stimulating hormone (TSH) *TSH [facility] Work Phone: Start: 12-11-2011 End: 12-18-2011 Thyroxine (T4) *T4 (Total) [facility] Work Phone: Start: 12-11-2011 End: 12-18-2011 *BMP *BMP [facility] Work Phone: Start: 12-11-2011 End: 12-18-2011 *CBC with Differential *CBC with Differential [facility] Work Phone: Start: 12-11-2011 End: 12-18-2011 *Hepatic Function Panel *Hepatic Function Panel [facility] Work Phone: Start: 12-11-2011 End: 12-18-2011 Ct thorax w/dye CT Chest with Contrast [facility] Work Phone: Start: 12-11-2011 End: 12-11-2011 Electrocardiogram, complete EKG (In office) [facility] Work Phone: Start: 12-11-2011 End: 12-11-2011 Follow Up Appt 6 months Follow Up Appt 6 months [facility] Work Phone: Start: 12-11-2011 End: 12-18-2011 Lipid panel [AGGREGATE] *Lipid Profile [facility] Work Phone: Start: 12-11-2011 End: 12-18-2011 Magnesium *Magnesium [facility] Work Phone: Start: 12-11-2011 End: 12-18-2011 Thyroid stimulating hormone (TSH) *TSH [facility] Work Phone: Start: 12-11-2011 End: 12-18-2011 Thyroxine (T4) *T4 (Total) [facility] Work Phone: Start: 06-12-2011 End: 12-18-2011 *BMP *BMP [facility] Work Phone: Start: 06-12-2011 End: 12-18-2011 *CBC with Differential *CBC with Differential [facility] Work Phone: Start: 06-12-2011 End: 12-18-2011 *Hepatic Function Panel *Hepatic Function Panel [facility] Work Phone: Start: 06-12-2011 End: 06-12-2011 Echocardiography Echocardiogram (complete) [facility] Work Phone: Start: 06-12-2011 End: 06-12-2011 Follow Up Appt 6 months Follow Up Appt 6 months [facility] Work Phone: Start: 06-12-2011 End: 12-18-2011 Lipid panel [AGGREGATE] *Lipid Profile [facility] Work Phone: Start: 06-12-2011 End: 12-18-2011 *BMP *BMP [facility] Work Phone: Start: 06-12-2011 End: 12-18-2011 *CBC with Differential *CBC with Differential [facility] Work Phone: Start: 06-12-2011 End: 12-18-2011 *Hepatic Function Panel *Hepatic Function Panel [facility] Work Phone: Start: 06-12-2011 End: 06-12-2011 Echocardiography Echocardiogram (complete) [facility] Work Phone: Start: 06-12-2011 End: 06-12-2011 Follow Up Appt 6 months Follow Up Appt 6 months [facility] Work Phone: Start: 06-12-2011 End: 12-18-2011 Lipid panel [AGGREGATE] *Lipid Profile [facility] Work Phone: Start: 11-24-2005 Screening for malignant neoplasm of colon COLORECTAL CANCER SCREENING DISCUSSION [facility] Start: 1995 Zoster vaccine hzv live for subcutaneous use ZOSTER (SHINGLES) VACCINE (1 of 2) [facility] Start: 1964 Third diphtheria, tetanus and acellular pertussis (DTaP) vaccination TDAP (ADULT) [facility] Start: 1945 Tetanus vaccination TETANUS [facility] End: 06-15-2024 BMP WITHOUT GLUCOSE BMP WITHOUT GLUCOSE Lab Routine Acute bacterial endocarditis Twice a Week for 6 Occurrences starting 06/15/2023 until 06/15/2024 [facility] Comment on above: Twice a Week for 6 Occurrences starting 06/15/2023 until 06/15/2024 CHEM 6 (LYTES, BUN CREA) CHEM 6 (LYTES, BUN CREA) Lab Routine Every Mon in the AM Lab until discontinued starting 06/18/2023, 1 completed [facility] Comment on above: Every Mon in the AM Lab until discontinu ed starting 06/18/2023, 1 completed End: 06-15-2024 Complete blood count with white cell differential, automated CBC, EDIF, PLATELET Lab Routine Acute bacterial endocarditis Once a week for 6 Occurrences starting 06/15/2023 until 06/15/2024 [facility] Comment on above: Once a week for 6 Occurrences starting 0 06/15/2023 until 06/15/2024 End: 06-15-2024 Hepatic function 2000 panel - Serum or Plasma HEPATIC FUNCTION PANEL Lab Routine Acute bacterial endocarditis Once a week for 6 Occurrences starting 06/15/2023 until 06/15/2024 [facility] Comment on above: Once a week for 6 Occurrences starting 0 06/15/2023 until 06/15/2024 LAB INSTRUCTIONS LAB INSTRUCTION S Lab Routine Acute bacterial endocarditis Ordered: 06/15/2023 [facility] Comment on above: Ordered: 06/15/2023 Magnesium [Mass/volu me] in Serum or Plasma MAGNESIUM Lab Routine UD PRN until discontinued starting 06/06/2023, 1 completed [facility] Comment on above: UD PRN until discontinued starting 06/06, 1 completed Magnesium [Mass/volu me] in Serum or Plasma MAGNESIUM Lab Routine Every Mon in the AM Lab until discontinued starting 06/18/2023, 1 completed [facility] Comment on above: Every Mon in the AM Lab until discontinu ed starting 06/18/2023, 1 completed [facility] Work Phone: Potassium [Moles/vol ume] in Serum or Plasma POTASSIUM Lab Routine UD PRN until discontinued starting 06/06/2023, 1 completed [facility] Comment on above: UD PRN until discontinued starting 06/06, 1 completed PROTIME-INR PROTIME-INR Lab Routine Every morning Lab until discontinued starting 06/10/2023, 9 completed [facility] Comment on above: Every morning Lab until discontinued sta rting 06/10/2023, 9 completed Standard ECG ECG ECG STAT Needed until discontinued starting 06/06/2023, 1 completed [facility] Comment on above: Needed until discontinued starting , 1 completed Standard ECG ECG ECG Routine Daily until discontinued starting 06/11/2023 [facility] Comment on above: Daily until discontinued starting 2023 Payers Date Payer Category Payer Self-pay 2023 Unknown AARP AARP xxxxxx [phone]-Present [address] [place] [address] [id number] [id number] 2023 Unknown [id number] 2021 Medicare [id number] 2020 Unknown [id number] 2010 Medicare MEDICARE MEDICAR E A AND B [id number] 2010-Present [address] [place] [address] 1.2.840.803302.1.13.172.2.7.3.6 [id number] 2010 Medicare [id number] 1945 Unknown [id number] 2.16.840.1.763861.3.579.2.732 1945 Unknown [id number] 2.16840.1.387364.3.579.2.732 1945 Unknown [id number] 2.16840.1.000682.3.579.2.73 1945 Unknown [id number] 2.16.840.1.024722.3.579.2.732 1945 Unknown [id number] 2.16.840.1.007420.3.579.2.732 1945 Unknown [id number] 2.16.840.1.879699.3.579.2.732 1945 Unknown [id number] 2.16.840.1.065716.3.579.2.732 1945 Unknown [id number] 2.16.840.1.514258.3.579.2.732 1945 Unknown [id number] 2.16.840.1.380160.3.579.2.732 1945 Unknown [id number] 2.16.840.1.146043.3.579.2.732 1945 Unknown [id number] 2.16.840.1.308112.3.579.2.732 1945 Unknown [id number] 2.16.840.1.492244.3.579.2.732 1945 Unknown [id number] 2.16.840.1.093566.3.579.2.732 1945 Unknown [id number] 2..840.1.374919.3.579.2.732 1945 Unknown [id number] 2.16.840.1.284705.3.579.2.732 1945 Unknown [id number] 2.16.840.1.403325.3.579.2.732 1945 Unknown [id number] 2.16.840.1.661539.3.579.2.594 1945 Unknown [id number] 2.840.1.005340.3.579.2.594 1945 Unknown [id number] 2.16.840.1.293422.3.579.2.594 1945 Unknown [id number] 2.16.840.1.608797.3.579.2.594 Unknown [id number] 2.16.840.1.979287.3.579.2.462 Unknown [id number] 2.16.840.1.599141.3.579.2.462 Unknown [id number] 2.16.840.1.836844.3.579.2.462 Unknown [id number] 2.16.840.1.406100.3.579.2.462 Unknown [id number] 2.16.840.1.494241.3.579.2.462 Unknown [id number] 2.16.840.1.618457.3.579.2.462 Unknown [id number] 2.16.840.1.722918.3.579.2.462 Unknown [id number] 2.16.840.1.364610.3.579.2.462 Unknown [id number] 2.16.840.1.421204.3.579.2.462 Unknown [id number] 2.16.840.1.712169.3.579.2.462 Unknown [id number] 2.16.840.1.977148.3.579.2.462 Unknown [id number] 2.16.840.1.858932.3.579.2.462 Unknown [id number] 2.16.840.1.545026.3.579.2.462 Unknown [id number] 2.16.840.1.769409.3.579.2.462 Unknown [id number] 2.16.840.1.120308.3.579.2.462 Unknown [id number] 2.16.840.1.498979.3.579.2.462 Unknown [id number] 2.16840.1.565135.3.579.2.462 Unknown [id number] 2.16840.1.826361.3.579.2.462 Unknown [id number] 2.16840.1.033731.3.579.2.462 Social History Date Type Detail Facility Start: [facility]23 [facility] Start: 06-07-2023 Tobacco use and exposure Smoke less tobacco non-user [facility] Start: 06-07-2023 End: 08-10-2023 Alcohol intake Lifetime non-drinker (finding) [facility] Start: 06-06-2023 End: 08-10-2023 History of Social function [facility] Start: 06-06-2023 End: 08-10-2023 [facility] Utilities [facility] Has the electric, [employer], oil, or water company threatened to shut off services in your home in past 12Mo No [facility] (I/We) worried wheth er (my/our) food would run out before (I/we) got money to buy more. Never true [facility] In the past 12 month s, has lack of transportation kept you from medical appointments or from getting medications? No [facility] Start: 1945 Sex Assigned At Not on file O [facility] NEGATED: Highlighted rowStart: NINF History of tobacco use Passive smoker [facility] Clinical Notes 03-19-2021 to 08-27-2024 Dean Veloz MD - 08/10/2023 11:00 AM Dustin Veloz MD - 08/10/2023 11:00 AM Rowdy Covington MD - 06/19/2023 1:13 PM Rowdy Covington MD - 06/19/2023 1:13 PM ESTDischarge Instructions Note Date & Type Note Facility 08-27-2024 Note [facility] Medical Records Department [address] [place] [address] Discharge Summary 08/27/24 1238 MR#: [id number] Acct: [id number] Name: MARKUS NAVA Rep #: [id number] : 1945 79 From: Braden Coto DO PCP: Dr. Louie Burns DO Status:ADM IN [facility] Prov[facility] Date of Admission: 08/23/24 Primary Care [...] (Auto) 64.2, Lymph % (Auto) 10.6 L, Piatt % (Auto) 19.2 H, Eos % (Auto) [...] Type of r (more content not included)... [facility] 08-10-2023 History and physical note [...] 123.4 (H) 06/18/2023 PTT 48 (H) 12/24/2004 [facility] 08-10-2023 History and physical note FER [...] 48 (H) 12/24/2004 documented in this encounter [facility] 06-19-2023 Hospital course Narrative Hospital Medicine Discharge Summary Patient Name Markus Nava Age (Date of ) 78 y.o. (1945) Admit Date 06/06/2023 Discharge Date 06/19/2023 Inpatient Days 13 Primary Diagnoses MSSA Endocarditis of the aortic valve Action Items Follow-up with local eating disorder psychologist regarding basal cell of neck Finish prescribed antibiotic course Dear Doctors, I recently had the opportunity to care for Markus Nava during his recent hospital stay at [facility]. As you may know, Mr. Nava [...] OS but patient preferred to see a eating disorder psychologist closer to home. Upon discharge the patient's code was Full Code Please see the remainder of this document for relevant data from this admission as well as the patient's discharge instructions and follow-up appointments.. An electronic copy of the patient's records can be obtained via [facility] at [email or web address] It has been [...] Department Center 07/26/2023 11:00 AM FER TESTING, [facility] 07/30/2023 10:00 AM Titi Sabillon MD (John) [facility] 08/02/2023 10:00 AM Asha Bundy MD [facility], [place] [address] Michael Maldonado MD [address] [facility] Physician Office Suites [address] [place] [address] Follow up Please call to schedule [...] Your Medications These medications were sent to [facility] [address], [address], [facility] [address] Hours: Sunday through Sunday 8am to 9pm, Sunday and Sunday 9am to 6pm predniSONE 5 MG TABS Tamsulosin HCl 0.4 MG CAPS You can get these medications from any pharmacy Bring a paper prescription for each of these medications ceFAZolin injection Follow-up: [facility] [employer] [place] [address] Michael Maldonado MD [address] [facility] Physician Office [facility] [address] [place] [phone] Follow up Please call to schedule hospital follow-up/INR check Upcoming Appointments (up to five)-Some appointments for Medical Center outpatient clinics or diagnostic testing locations are not displayed below Provider Department Dept Phone 07/26/2023 11:00 AM FER TESTING, [facility] Cardiovascular Imaging Lab [facility] Arrive at: Arrive to [facility] Registration Desk [phone] 07/30/2023 10:00 AM Titi Spangler (John) [facility] Arrive at: Arrive to [facility] Registration Desk [phone] 08/02/2023 10:00 AM Asha Bundy Infectious Diseases Care [facility] Outpatient Care [phone] documented in this encounter [facility] 06-19-2023 Hospital course Narrative Hospital Medicine Discharge Summary Patient Name Markus Nava Age (Date of ) 78 y.o. (1945) Admit Date 06/06/2023 Discharge Date 06/19/2023 Inpatient Days 13 Primary Diagnoses MSSA Endocarditis of the aortic valve Action Items Follow-up with local eating disorder psychologist regarding basal cell of neck Finish prescribed antibiotic course Dear Doctors, I recently had the opportunity to care for Markus Nava during his recent hospital stay at [facility]. As you may know, Mr. Nava [...] OS but patient preferred to see a eating disorder psychologist closer to home. Upon discharge the patient's code was Full Code Please see the remainder of this document for relevant data from this admission as well as the patient's discharge instructions and follow-up appointments.. An electronic copy of the patient's records can be obtained via [facility] at [email or web address] It has been [...] Discharge Future Appointments Date Time Provider Department [place] 07/26/2023 11:00 AM FER TESTING, [facility] 07/30/2023 10:00 AM Titi Sabillon MD (John) [facility] 08/02/2023 10:00 AM Asha Bundy MD [place] [address] Michael Maldonado MD [address] [facility] Physician Office [facility] [address] [place] [address] Follow up Please call to schedule [...] Your Medications These medications were sent to [facility] [address], [address], [facility] [address] Hours: Sunday through Sunday 8am to 9pm, Sunday and Sunday 9am to 6pm predniSONE 5 MG TABS Tamsulosin HCl 0.4 MG CAPS You can get these medications from any pharmacy Bring a paper prescription for each of these medications ceFAZolin injection Follow-up: [facility] [place] [employer] [place] [address] Michael Madlonado MD [address] [facility] Physician Office [facility] [address] [place] [address] [phone] Follow up Please call to schedule hospital follow-up/INR check Upcoming Appointments (up to five)-Some appointments for Medical Center outpatient clinics or diagnostic testing locations are not displayed below Provider Department Dept Phone 07/26/2023 11:00 AM FER TESTING, [facility] Cardiovascular Imaging Lab [facility] Arrive at: Arrive to [facility] Registration Desk [phone] 07/30/2023 10:00 AM Titi Spangler (John) [facility] Arrive at: Arrive to [facility] Registration Desk [phone] 08/02/2023 10:00 AM Asha Bundy Infectious Diseases Care [facility] Outpatient Care [phone] documented in this encounter [facility] 06-19-2023 Miscellaneous Notes After Visit Summary reviewed [...] provide SN for infusion services: [facility], [place] [phone] Fax: [phone] Addendum at 1529: Patient will also use [facility] for infusion pharmacy: [facility], an [facility] [address] [place] [address] NATAN Mills RN Problem: Patient Care Overview [...] Conf Outcome: Ongoing documented in this encounter [facility] 06-19-2023 Miscellaneous Notes After Visit Summary reviewed [...] infusion services: [facility] [employer] [address] [place] [address] Fax: [phone] Addendum at 7227: Patient will also use [facility] for infusion pharmacy: [facility], an [facility] [address] [place] [address] Bianca Chung P[facility] RN Problem: Patient Care [...] Conf Outcome: Ongoing documented in this encounter [facility] 06-19-2023 Nurse Note After Visit Summary reviewed [...] No further issues at time of discharge. [facility] 06-19-2023 History of Present illness Narrative Final Discharge Planning and Transportation Final Discharge Planning Discharge Disposition: Home with Infusion Services at Discharge: Long-Term Selected Continued Care - Admitted Since 06/06/2023 Dialysis/Infusion Coordination complete. Service Provider Selected Services Address Phone Fax Patient Preferred [facility] [address] [place] [phone] -- Current Capacity last updated by Dominique Solorio RN on 03/28/2023 1518 Home IV ATBs Home Medical Care Coordination complete. Service Provider Selected Services Address Phone Fax Patient Preferred [facility] Home Nursing [address] [place] [phone] -- Community Agency Name(s) For Handoff: [facility] Name For Handoff: sole molder Phone For Handoff: Fax For Handoff: Fax: [phone] Community Agency Name For Handoff: [facility] Phone For Handoff: Fax For Handoff: Plan Plan: pt to dc home with SN and infusion services in place Patient/Family In Agreement With Plan: yes Transportation Family to transport the patient. CM had conversation with patient/caregiver related to specialty care follow-up. Barriers identified: None Outpatient CM was not contacted related to barriers Sandra Lopez RN, BSN Clinical Media Relations Specialist Home Health Referral Educated Patient on Home Care and services available. Patient agreeable to Long-Term services with [facility] and [facility] for infusion pharmacy. Current Home DME: None Patient Demographics Name: Markus Constantine [place] Patient Demographics [address] [facility] [address] PCP Louie Burns Language Bermudian Straight Kn[employer] Needed No (home) Cell Phone No relevant [...] Caregiver: Name:Thai Lin Relation to patient: Contact #:[phone] Is teachable available for SOC visit? Yes IV/TPN/Tube Feed: Infusion Company:[facility] Infectious Disease Physician:Dr. Kelvin Soliz Infusion/TF Orders:Cefazolin [...] Function Panel every Sunday Frequency: Source Site: [facility] Send Results To: fax to [phone], attention (ID Attending): Dr. Kelvin Soliz (ID Fellow): [facility] General Report/ Additional Comments: Markus Nava [...] NATAN Mills RN This [facility] RN called [facility] with [facility] agency at [phone] to let her know that patient is discharging today. DC documents uploaded to [employer] and faxed to [phone]. NATAN Mills RN Images from the original note were not included. [facility] Note: Bedside Delivery Documentation The following prescription(s) were tubed to the patient's bedside. Dolores Zaman [facility] ([place]) [phone] [facility] [phone] [facility] Bedside Delivery [phone] [facility] [phone] [facility] Bedside Delivery [phone] [facility] [phone] [facility] Bedside Delivery [phone] [place] [phone] [place] [phone] Markus is to get final dose of gentamicin tomorrow and then will be ready for discharge tomorrow. I updated [facility] and [facility] (via [place]) of this plan. [facility] has the atb script; I uploaded PICC information. Gabriela Harding RN Clinical Media Relations Specialist Images from the original note were not included. [facility] Note: Non-Verbal Med Rec [facility] received the following discharge prescription(s): Total cost is $15.67. I have reviewed the Discharge Rx Reconciliation Report. The discharge prescription(s) will be delivered to the patient on 06/18/2023. Quentin Rodriguez RPh,PharmD Specialty ([place]) [phone] [facility] [phone] [facility] Bedside Delivery [phone] [facility] [phone] [facility] Bedside Delivery [phone] [facility] [phone] [facility] Bedside Delivery [phone] [place] [phone] [place] [phone] [facility] Medicine Progress Note Patient: Markus Nava, [...] 123.4/26.5/2.5 (06/18 608) Signed, Wiley Covington MD [facility] Progress Note Patient: Markus Nava, [...] 91.6/20.0/1.7 (06/17 327) Signed, Wiley Covington MD [facility] Medicine Progress Note Patient: Markus Nava, [...] -please set him up with his outpatient publications designer in [place] to be seen within 1 month of [...] to PO amio. -currently in rate-controlled AF -IYC4QD4-ETGw8 is 3, continue systemic AC with warfarin [...] early evening heparin 14 Units/kg/hr (06/15/23 1326) [id number]-DTTg Score for Atrial Fibrillation Stroke Risk Age in Years: 75+ Sex: Male CHF History: Yes Hypertension History: No Stroke/TIA/Thromboembolism History: No Vascular Disease History: No Diabetes History: No GPI5NY4-YXFg Score: 3 Complexity. Thank you for this consult. Please call with questions. We will sign off at this time. [facility] Consult Service Phone: [phone] Hospital Medicine Progress Note Patient: Markus Nava, [...] 82.6/15.5/1.2 (06/15 314) Signed, Wiley Covington MD [facility] Medicine Progress Note Patient: Markus Nava, [...] and Status--Accepted/Reserved [facility] [address] [place] [address] [place], an [facility] - [facility] [address] [place] [address] MAISHA updated in Rounds. Patient discharge anticipated early next week- INR hold. Patient has home health/home infusion arranged by [facility]. Home Health -- only accepting agency has nursing available for SOC early next week (no weekend availability). CM contacted patient's Sleeve Turner Office-Dr Maldonado with [facility] to verify ability to continue managing coumadin/INR when discharged. CM will continue follow up and assist with discharge planning. Radha KEN Clinical Media Relations Specialist [facility] Images from the original note [...] -please set him up with his outpatient publications designer in [place] to be seen within 1 month of [...] to PO amio. -currently in rate-controlled AF -AAB5CU1-CBXc3 is 3, continue systemic AC with warfarin [...] early evening heparin 14 Units/kg/hr (06/14/23 1314) AXL2BG3-OOUm Score for Atrial Fibrillation Stroke Risk Age in Years: 75+ Sex: Male CHF History: Yes Hypertension History: No Stroke/TIA/Thromboembolism History: No Vascular Disease History: No Diabetes History: No NXX0DN4-FAIn Score: 3 Complexity. Thank you for this consult. Please call with questions. We will continue to follow along. [facility] Consult Service Phone: [phone] Department of Pharmacy Pharmacokinetics Progress Note Patient: [...] with prosthetic/mechanical AV endocarditis FER (06/05/2023) at [facility] with 1.1cm x 0.7cm mobile vegetation on subaortic valvular lesion without surgical candidacy upon [facility]. 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 Asha Bundy Labs: Please have the [employer] [facility] [employer] or [facility] obtain the following labs and fax to [phone], attention (ID Attending): Dr. Kelvin Soliz (ID [...] Clinic (Please ensure patient is enrolled in [facility] prior to discharge) If the patient is being discharged to a [facility] we will defer ID Care to the Infectious Disease Providers at the [facility] facility. Please instruct the facility that [...] on 08/02/2023 at 10:00AM. Asha Bundy MD [facility] Progress Note Patient: Markus Nava [...] a 78 y.o. 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 Blood cultures initially positive on 06/02/2023. Started on intermittent Cefazolin with Gentamicin prior to transfer [facility]. 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 For [...] as noted above. 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 Shnae and hemashield composite graft in 2001. - [...] per BP tolerance for rate control. - YAE8DL3-KJJh7 is 3, continue systemic AC with warfarin [...] Daily early evening heparin 15 Units/kg/hr (06/12/232106) URZ7MQ9-VGTs Score for Atrial Fibrillation Stroke Risk Age in Years: 75+ Sex: Male CHF History: Yes Hypertension History: No Stroke/TIA/Thromboembolism History: No Vascular Disease History: No Diabetes History: No QLH6AQ6-RKYz Score: 3 Complexity. Thank you for this consult. Please call with questions. We will continue to follow along. [facility] Consult Service Phone: [phone] [facility] Medicine Progress Note Patient: Markus Nava, [...] Please set him up with his outpatient publications designer in [place] to be seen within 1 month of [...] per BP tolerance for rate control. - GTU7KB4-PCGp7 is 3, continue systemic AC with warfarin [...] Intake/Output Summary (Last 24 hours) at 06/12/2023 0752 Last data filed at 06/12/2023 0633 Gross [...] early evening heparin 12 Units/kg/hr (06/12/23 0633) VXI1DI6-BXYv Score for Atrial Fibrillation Stroke Risk Age in Years: 75+ Sex: Male CHF History: Yes Hypertension History: No Stroke/TIA/Thromboembolism History: No Vascular Disease History: No Diabetes History: No SEJ1IQ2-VVJf Score: 3 Thank you for this consult. Please call with questions. We will continue to follow along. [facility] Consult Service Phone: [phone] Department of Pharmacy Antimicrobial Stewardship Documentation Note [...] the following recommendations are based on [facility]'s Diagnosis and Management of Staphylococcus aureus [...] further questions. Name: Haley Mahmood RPH Phone: [phone] Date/Time: 06/12/2023 7:24 AM Discharge Plan Expected Discharge Date: 06/13/2023 Referred Level of Care: Home Health/Home Infusion Barriers: Cultures, Final ID recs/Antibiotic plan, PICC Current Referrals and Status [facility] assisting with Home Health/Home Infusion referrals. will continue following for discharge planning. Radha KEN Clinical Media Relations Specialist [facility] Hospital Medicine Progress Note Patient: [...] procedure Appreciate derm- will be done outpatient DAAD Likely from continuous Abx infusions. -5L for [...] Please set him up with his outpatient publications designer in [place] to be seen within 1 month of [...] rate control with BB and amiodarone - QZM5PL3-NCLj0 is 3, continue systemic AC with warfarin [...] early evening heparin 11 Units/kg/hr (06/11/23 0800) DNQ9JA5-GIUb Score for Atrial Fibrillation Stroke Risk Age in Years: 75+ Sex: Male CHF History: Yes Hypertension History: No Stroke/TIA/Thromboembolism History: No Vascular Disease History: No Diabetes History: No KNZ7OE6-JPNi Score: 3 Thank you for this consult. Please call with questions. We will continue to follow along. [facility] Consult Service Phone: [phone] Images from the original note were not included. INFECTIOUS DISEASE FOLLOW-UP NOTE IDENTIFYING INFORMATION PATIENT: Markus Nava REFERRING PROVIDER: Heike Milan MD ADMIT DATE: 06/06/2023 TODAY'S DATE: 06/11/2023 REASON FOR CONSULT 78y M with hx of aortic valve replacement now with MSSA bacteremia and AV endocarditis ASSESSMENT Markus Nava is a 78 y.o. 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 Blood cultures initially positive on 06/02/2023. Started on intermittent Cefazolin with Gentamicin prior to transfer to [facility]. 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 Kelvin Soliz MD, PhD Design Release Engineermanager quality compliance Division of Infectious Diseases Hospital Medicine Progress [...] further questions. Name: Kelvin Pitts RPH Phone: [phone] Date/Time: 06/10/2023 3:10 PM Images from the [...] Please set him up with his outpatient publications designer in [place] to be seen within 1 month of [...] rate control with BB and amiodarone - [id number]-[id number] is 3, continue systemic AC with warfarin [...] early evening heparin 14 Units/kg/hr (06/10/23 0731) [id number] Score for Atrial Fibrillation Stroke Risk Age in Years: 75+ Sex: Male CHF History: No Hypertension History: Yes Stroke/TIA/Thromboembolism History: No Vascular Disease History: No Diabetes History: No [id number]-XKGo Score: 3 Thank you for this consult. Please call with questions. We will continue to follow along. Plan of care developed in collaboration with attending publications designer Dr. Potter. [facility] Consult Service Phone: [phone] [facility] Medicine Progress Note Patient: Markus Nava, [...] Please set him up with his outpatient publications designer in [place] to be seen within 1 month of [...] rate control with BB and amiodarone - [id number] is 3, home warfarin on hold currently [...] Oral Daily heparin 15 Units/kg/hr (06/09/23 0647) [id number] Score for Atrial Fibrillation Stroke Risk Age in Years: 75+ Sex: Male CHF History: No Hypertension History: Yes Stroke/TIA/Thromboembolism History: No Vascular Disease History: No Diabetes History: No [id number]-SVEe Score: 3 Thank you for this consult. Please call with questions. We will continue to follow along. Plan of care developed in collaboration with attending publications designer Dr. Potter. [facility] Consult Service Phone: [phone] BRIEF NUTRITION NOTE: Current Diet Orders Procedures DIET HEART HEALTHY - 4 GM SODIUM Standing Status: Standing Number of Occurrences: 1 Pt with no significant nutrition changes over the past week. Tolerating diet with adequate po intake. No notable wt changes. low voltage technician will continue to follow/assist prn. Basil Galindo DTR Pager: [phone] [facility] Medicine Progress Note Patient: Markus Nava, [...] appropriate follow-up. Please contact our offices at [phone] to schedule. This patient was discussed with Dr. Titi Sabillon MD. We will sign off. Please call with any additional questions or concerns. Thank you. Laurie Fritz APRN-STAVE LOG CUT OFF SAW OPERATOR [facility] Cardiothoracic Surgery Inpatient Nurse Practitioner Phone #[phone] [facility] Coordination Note Patient received in handoff from geriatric case manager for potential homecare services. Referrals place in [place], awaiting responses. Will continue to follow with geriatric case manager for plan of care. [facility] [...] assist with discharge planning. Radha KEN Clinical Media Relations Specialist [facility] Department of Pharmacy Pharmacokinetics Progress Note Patient: Андрей Tidwell [facility] Assessment and Plan: Based upon drug level [...] further questions. 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 IADL History IADLs: independent Primary Language: Bermudian Objective/Observation: Vitals/Vitals Responses to Treatment: Vitals HR [...] Assessment: Transfer Assessment: Sit to Stand Transfer [place] Level: Sit->Stand: modified independence Skilled Rationale: Verbal cues Functional Mobility: Functional Mobility [place] Level: Functional Mobility/Gait: supervision Functional Mobility Skilled Rationale: Verbal cues [facility] Daily Activity Inpatient Short Form Putting on/Taking Off Lower Body Clothin - A Little Assistance Bathin - No Assistance Toiletin - No Assistance Putting on/Taking Off Upper Body Clothin - No Assistance Groomin - No Assistance Eatin - No Assistance [facility] Activity Raw Score: 23 [facility] Activity Functional Limitation/Modifier: 15.86% Currently Impaired [...] of activity achieved on this date Gait [place] Level: Gait: contact guard assist Ambulation Distance (Feet): (430ft) no AD, no LOB Mobility equipment available at home: none used ADL equipment available at home: none Equipment needed for discharge: none Current therapy frequency recommendation in acute: Therapy Frequency: no therapy warranted Activity Recommendations for outside of rehab session: Ambulate in hallways with RN or GYMNASTIC TEACHER x3 daily Precautions and Weightbearing Status: Existing [...] Equipment Available: none 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 Level of Function Prior level ADL Overview: Independent with all ADLs Dominant Hand: Ambidextrous, Left Bed Mobility/Transfers: independent Ambulation Skills: independent Assistive Device: none used Level of Ambulation: community Prior Level of Function Details: [facility]- photographer helper Objective/Observation: Vitals/Vitals Responses to Treatment: Vitals monitored [...] width Transfer Assessment: Sit to Stand Transfer [place] Level: Sit->Stand: supervision Skilled Rationale: Hand placement, Verbal cues, Cues for increased safety, Facilitate anterior shift Skilled Intervention/Details: Sit->Stand: cues for STS mechanics and increased safety Stand to Sit Transfer [place] Level: Stand->Sit: supervision Skilled Rationale: Hand placement, Verbal cues, Technique of activity Gait/Functional Mobility: Gait Assessment [place] Level: Gait: contact guard assist Ambulation Distance (Feet): (430ft) Gait Deviations Identified: decreased david, decreased step length Gait Skilled Rationale: verbal, upright posture Skilled Intervention/Details - Gait: Cues for equal step length Stairs: Stairs Assessment [place] Level: Stair Negotiation: not tested Outcome Score(s): [...] Household ambulation Limited Community ambulation Community ambulation [address] safely 0 - 0.4 meter/sec 0.4 - 0.8 meter/sec 0.8 - 1.3 meter/sec >1.4 meter/sec Dylan Marc, Quinn Veloz (2015) CURRENT [facility] Basic Mobility Inpatient Short Form Turning over in bed: 4 - No Assistance Sitting/standing from chair: 4 - No Assistance Moving from lying on back to sittin - No Assistance Moving to and from bed to chair: 3 - A Little Assistance Walk in hospital room: 3 - A Little Assistance Climbing 3-5 steps with a railin - A Little Assistance CURRENT [facility] Mobility Raw Score: 21 CURRENT [facility] Mobility Functional Limitation/Modifier: 28.97% Currently Impaired [...] PO amio. Currently in rate-controlled AF. - [id number] is 3, on heparin gtt - Recommend [...] Oral Daily heparin 14 Units/kg/hr (06/08/23 0905) [id number] Score for Atrial Fibrillation Stroke Risk Age in Years: 75+ Sex: Male CHF History: No Hypertension History: Yes Stroke/TIA/Thromboembolism History: No Vascular Disease History: No Diabetes History: No [id number]-TVPx Score: 3 Thank you for this consult. Please call with questions. We will continue to follow along. CHEO [facility] Cardiology Consult Service Phone: [phone] Images from the original note were not included. INFECTIOUS DISEASE FOLLOW-UP NOTE IDENTIFYING INFORMATION PATIENT: Markus Nava REFERRING PROVIDER: Heike Milan MD ADMIT DATE: 06/06/2023 TODAY'S DATE: 06/08/2023 REASON FOR CONSULT 78y M with hx of aortic valve replacement now with MSSA bacteremia and AV endocarditis ASSESSMENT Markus Nava is a 78 y.o. 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 Blood cultures initially positive on 06/02/2023. Started on intermittent Cefazolin with Gentamicin prior to transfer to [facility] on 06/06/2023. 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) complicated [...] 06/08/2023 Microbiologic Data (personally reviewed): Blood (06/02/2023, [facility]): MSSA Blood (06/06/2023): MSSA (Line & [...] MD, PhD Division of Infectious Diseases [facility] Hospital Medicine Progress Note Patient: Markus [...] No Spouse: No (Thai Lin Significant Other [phone]) Adult Child(alberto), List All Adult Children: Yes Name and Contact information: Dominique Landon [phone] (patient is not and has one adult [...] Yes Provider or Clinic that manages Anticoagulation?: [facility] manages No Pharmacies Listed [employer] Does the patient or account maintenance representative express financial concerns? : No Employed?: Retired Coping/Stress Concerns about patient s coping and stress?: No Concerns about patient s caregiver s coping and stress?: Unable to Assess Values and Beliefs Cultural or mu-ism practices that may impact discharge planning and/or medical care?: No Initial Discharge Planning Anticipated discharge disposition: Home with Infusion Transportation Available for Discharge: Private Vehicle, Family or Friend Anticipated DME: none Anticipated Services at Discharge: Outpatient follow up, Long-Term Patient Assessment Completed: Initial Expected Discharge Date: 06/12/2023 Discharge Planning Summary CM met with patient to complete initial assessment Anticipate discharge home with outpatient follow up vs home with home infusion and outpatient follow up Case Management Plan 1.Role of Clinical Media Relations Specialist explained while admitted to [facility] 2.PCP/Specialist/pharmacy information updated as needed 3. Patient demographic/address/emergency contact information verified 4.Clinical Media Relations Specialist will continue to follow with medical team to coordinate discharge planning. Radha KEN Clinical Media Relations Specialist [facility] Department of Pharmacy Admission Medication [...] further questions. Name: Binu Chauhan Phone #: [phone] Date/Time: 06/07/2023 10:07 AM Time Spent: 25 minutes Associated attestation - Judson Parsons RPH - 06/07/2023 1:16 PM EST Department of Pharmacy Admission Medication Reconciliation Note Patient: Markus [facility] I have reviewed the home medication list with the Film Maker. The home medication list status is: complete. A call to the pharmacy was not needed because the information compiled from listed sources corroborates the patient/caregiver interview. All changes to the home medication list have been updated in [facility]. Updated CHANNEL MARKETING PROGRAM MANAGER Med List: Prior to Admission Medications Prescriptions [...] questions. Name: Judson Parsons RPH Phone #: [phone] Date/Time: 06/07/2023 1:16 PM Occupational Therapy Attempt [...] minutes): 0 minutes documented in this encounter [facility] 06-19-2023 History of Present illness Narrative Final Discharge Planning and Transportation Final Discharge Planning Discharge Disposition: Home with Infusion Services at Discharge: Long-Term Selected Continued Care - Admitted Since 06/06/2023 Dialysis/Infusion Coordination complete. Service Provider Selected Services Address Phone Fax Patient Preferred [facility] [address] [place] [address] [phone] -- Current Capacity last updated by Dominique Solorio RN on 03/28/2023 1518 Home IV ATBs Home Medical Care Coordination complete. Service Provider Selected Services Address Phone Fax Patient Preferred [facility] [employer] [facility] Home Nursing [address] [place] [address] [phone] -- Community Agency Name(s) For Handoff: [facility] Name For Handoff: sole molder Phone For Handoff: Fax For Handoff: Fax: [phone] Community Agency Name For Handoff: [facility] Phone For Handoff: Fax For Handoff: Plan Plan: pt to dc home with SN and infusion services in place Patient/Family In Agreement With Plan: yes Transportation Family to transport the patient. CM had conversation with patient/caregiver related to specialty care follow-up. Barriers identified: None Outpatient CM was not contacted related to barriers Sandra Lopez RN, BSN Clinical Media Relations Specialist Home Health Referral Educated Patient on Home Care and services available. Patient agreeable to Long-Term services with [facility] and [facility] for infusion pharmacy. Current Home DME: None Patient Demographics Name: Markus Nava Patient Demographics [address] [facility] [address] PCP Louie Burns Language Bermudian Straight Knife Cutter Machine Needed No (home) Cell Phone No relevant phone numbers on file. Emergency Contacts Extended Emergency Contact Information Primary Emergency Contact: thai Lin Relation: Significant Other Secondary Emergency Contact: jackelien landon Relation: Child Ordering Physician: Wiley Covington MD Following Physician:Louie Burns, DO Agreeable to Follow: Yes Date/Time of Call: 06/08/23 at 1630 Spoke with: Dunia Primary Diagnosis & Reason for Services: Acute bacterial endocarditis [I33.0] - Primary Hi-Tech (Labs, Wounds, Infusions etc.): Teachable Caregiver: Name:Thai Lin Relation to patient: Contact #:[phone] Is teachable available for SOC visit? Yes IV/TPN/Tube Feed: Infusion Company:[employer] [facility] Infectious Disease Physician:Dr. Kelvin Soliz Infusion/TF Orders:Cefazolin [...] Site: PICC Send Results To: fax to [phone], attention (ID Attending): Dr. Kelvin Soliz (ID [...] Dede with [facility] at [phone] to let her know that patient is discharging today. DC documents uploaded to [employer] and faxed to [phone]. NATAN Mills RN Images from the original note were not included. [facility] ([facility]) Note: Bedside Delivery Documentation The following prescription(s) were tubed to the patient's bedside. Dolores Zaman Specialty ([place]) [phone] [facility] [phone] [facility] Bedside Delivery [phone] [facility] [phone] [facility] Bedside Delivery [phone] [facility] [phone] [facility] Bedside Delivery [phone] [facility] [phone] [place] [phone] Markus is to get final dose of gentamicin tomorrow and then will be ready for discharge tomorrow. I updated [facility] and [facility] (via Santana) of this plan. [facility] has the atb script; I uploaded PICC information. Gabriela Harding RN Clinical Media Relations Specialist Images from the original note were not included. [facility] Note: Non-Verbal Med Rec [facility] received the following discharge prescription(s): Total cost is $15.67. I have reviewed the Discharge Rx Reconciliation Report. The discharge prescription(s) will be delivered to the patient on 06/18/2023. Quentin Rodriguez RPh,PharmD Specialty ([place]) [phone] [place] [phone] [facility] Bedside Delivery [phone] [facility] [phone] [facility] Bedside Delivery [phone] [facility] [phone] [facility] [phone] [place] [phone] [place] [phone] [facility] Progress Note Patient: Markus Nava, [...] heparin gtt Anticipated Disposition: home tomorrow if [facility] can be arranged Code status [...] 91.6/20.0/1.7 (06/17 327) Signed, Wiley Covington MD [facility] Progress Note Patient: Markus Nava, [...] -please set him up with his outpatient publications designer in [place] to be seen within 1 month of [...] to PO amio. -currently in rate-controlled AF -[id number]-UAPe1 is 3, continue systemic AC with warfarin [...] early evening heparin 14 Units/kg/hr (06/15/23 1326) [id number] Score for Atrial Fibrillation Stroke Risk Age in Years: 75+ Sex: Male CHF History: Yes Hypertension History: No Stroke/TIA/Thromboembolism History: No Vascular Disease History: No Diabetes History: No [id number]-AAZk Score: 3 Complexity. Thank you for this consult. Please call with questions. We will sign off at this time. [facility] Consult Service Phone: [phone] Hospital Medicine Progress Note Patient: Markus Nava, [...] 82.6/15.5/1.2 (06/15 314) Signed, Wiley Covington MD [facility] Progress Note Patient: Markus Nava, [...] and Status--Accepted/Reserved [facility] [address] [place] [address] nidia Ramos [facility] [address] [place] [address] CM updated in Rounds. Patient discharge anticipated early next week- INR hold. Patient has home health/home infusion arranged by [facility]. Home Health -- only accepting agency has nursing available for SOC early next week (no weekend availability). CM contacted patient's [facility] Office-Dr Maldonado with [facility] to verify ability to continue managing coumadin/INR when discharged. CM will continue follow up and assist with discharge planning. Radha KEN Clinical Media Relations Specialist [facility] Images from the original note [...] -please set him up with his outpatient publications designer in [place] to be seen within 1 month of [...] to PO amio. -currently in rate-controlled AF -[id number]-LEZd0 is 3, continue systemic AC with warfarin [...] early evening heparin 14 Units/kg/hr (06/14/23 1314) [id number]-DTAw Score for Atrial Fibrillation Stroke Risk Age in Years: 75+ Sex: Male CHF History: Yes Hypertension History: No Stroke/TIA/Thromboembolism History: No Vascular Disease History: No Diabetes History: No [id number]-VZPg Score: 3 Complexity. Thank you for this consult. Please call with questions. We will continue to follow along. [facility] Card[facility] Consult Service Phone: [phone] Department of Pharmacy Pharmacokinetics Progress Note Patient: [...] with prosthetic/mechanical AV endocarditis FER (06/05/2023) at [facility] with 1.1cm x 0.7cm mobile vegetation on subaortic valvular lesion without surgical candidacy upon transfer to [facility]. 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 Kelvin Soliz (ID [...] Clinic (Please ensure patient is enrolled in [facility] prior to discharge) If the patient is being discharged to a [facility] we will defer ID Care to the Infectious Disease Providers at the [facility] facility. Please instruct the facility that [...] on 08/02/2023 at 10:00AM. Asha Bundy MD [facility] Progress Note Patient: Markus Nava, [...] a 78 y.o. 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 Blood cultures initially positive on 06/02/2023. Started on intermittent Cefazolin with Gentamicin prior to transfer to [facility]. 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 Kelvin Soliz MD, PhD Design Release Engineermanager quality compliance Division of Infectious Diseases Images from the [...] Please set him up with his outpatient publications designer in [place] to be seen within 1 month of [...] per BP tolerance for rate control. - [id number]-PYWn5 is 3, continue systemic AC with warfarin [...] Daily early evening heparin 15 Units/kg/hr (06/12/232106) [id number]-INSf Score for Atrial Fibrillation Stroke Risk Age in Years: 75+ Sex: Male CHF History: Yes Hypertension History: No Stroke/TIA/Thromboembolism History: No Vascular Disease History: No Diabetes History: No NYX4FE0-SNBx Score: 3 Complexity. Thank you for this consult. Please call with questions. We will continue to follow along. CHEO [facility]on Cardiology Consult Service Phone: [phone] [facility] Progress Note Patient: Markus Nava, [...] Please set him up with his outpatient publications designer in [place] to be seen within 1 month of [...] per BP tolerance for rate control. - DXA2PX1-QCSj9 is 3, continue systemic AC with warfarin [...] Intake/Output Summary (Last 24 hours) at 06/12/2023 0780 Last data filed at 06/12/2023 0633 Gross [...] early evening heparin 12 Units/kg/hr (06/12/23 0633) [id number]-TGBm Score for Atrial Fibrillation Stroke Risk Age in Years: 75+ Sex: Male CHF History: Yes Hypertension History: No Stroke/TIA/Thromboembolism History: No Vascular Disease History: No Diabetes History: No GVZ8FO4-ARRo Score: 3 Thank you for this consult. Please call with questions. We will continue to follow along. CHEO [facility]on Cardiology Consult Service Phone: [phone] Department of Pharmacy Antimicrobial Stewardship Documentation Note [...] the following recommendations are based on The [facility]'s Diagnosis and Management of Staphylococcus aureus [...] me with any further questions. Name: Haley Mamhood RPH Phone: [phone] Date/Time: 06/12/2023 7:24 AM Discharge Plan Expected Discharge Date: 06/13/2023 Referred Level of Care: Home Health/Home Infusion Barriers: Cultures, Final ID recs/Antibiotic plan, PICC Current Referrals and Status [facility] assisting with Home Health/Home Infusion referrals. CM will continue following for discharge planning. Radha KEN Clinical Media Relations Specialist [facility] Hospital Medicine Progress Note Patient: [...] Please set him up with his outpatient publications designer in [place] to be seen within 1 month of [...] rate control with BB and amiodarone - [id number] is 3, continue systemic AC with warfarin [...] early evening heparin 11 Units/kg/hr (06/11/23 0800) [id number] Score for Atrial Fibrillation Stroke Risk Age in Years: 75+ Sex: Male CHF History: Yes Hypertension History: No Stroke/TIA/Thromboembolism History: No Vascular Disease History: No Diabetes History: No [id number] Score: 3 Thank you for this consult. Please call with questions. We will continue to follow along. CHEO Adamson Cardiology Consult Service Phone: [phone] Images from the original note were not included. INFECTIOUS DISEASE FOLLOW-UP NOTE IDENTIFYING INFORMATION PATIENT: Markus Nava REFERRING PROVIDER: Heike Milan MD ADMIT DATE: 06/06/2023 TODAY'S DATE: 06/11/2023 REASON FOR CONSULT 78y M with hx of aortic valve replacement now with MSSA bacteremia and AV endocarditis ASSESSMENT Markus Nava is a 78 y.o. 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 Blood cultures initially positive on 06/02/2023. Started on intermittent Cefazolin with Gentamicin prior to transfer to [facility]. 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 Kelvin Soliz MD, PhD Design Release Engineermanager quality compliance Division of Infectious Diseases [facility] Medicine Progress Note Patient: Markus Nava, [...] Pharmacokinetics Progress Note Patient: [facility] Assessment and Plan: Based upon [...] further questions. Name: Kelvin Pitts RPH Phone: [phone] Date/Time: 06/10/2023 3:10 PM Images from the [...] Please set him up with his outpatient publications designer in [place] to be seen within 1 month of [...] rate control with BB and amiodarone - [id number] is 3, continue systemic AC with warfarin [...] early evening heparin 14 Units/kg/hr (06/10/23 0731) [id number] Score for Atrial Fibrillation Stroke Risk Age in Years: 75+ Sex: Male CHF History: No Hypertension History: Yes Stroke/TIA/Thromboembolism History: No Vascular Disease History: No Diabetes History: No [id number] Score: 3 Thank you for this consult. Please call with questions. We will continue to follow along. Plan of care developed in collaboration with attending publications designer Dr. Potter. CHEO Katz Cardiology Consult Service Phone: [phone] Hospital Medicine Progress Note Patient: Markus Nava, [...] Please set him up with his outpatient publications designer in [place] to be seen within 1 month of [...] rate control with BB and amiodarone - [id number] is 3, home warfarin on hold currently [...] Oral Daily heparin 15 Units/kg/hr (06/09/23 0647) [id number] Score for Atrial Fibrillation Stroke Risk Age in Years: 75+ Sex: Male CHF History: No Hypertension History: Yes Stroke/TIA/Thromboembolism History: No Vascular Disease History: No Diabetes History: No [id number] Score: 3 Thank you for this consult. Please call with questions. We will continue to follow along. Plan of care developed in collaboration with attending publications designer Dr. Potter. CHEO Katz Cardiology Consult Service Phone: [phone] BRIEF NUTRITION NOTE: Current Diet Orders Procedures DIET HEART HEALTHY - 4 GM SODIUM Standing Status: Standing Number of Occurrences: 1 Pt with no significant nutrition changes over the past week. Tolerating diet with adequate po intake. No notable wt changes. low voltage technician will continue to follow/assist prn. CONNOR SanchezR Pager: [phone] [facility] Medicine Progress Note Patient: Markus Nava, [...] effort Cardio: RRR, normal S1, S2, No ADDA GI: S/NT/ND, NABS Psych: Ox3, appropriate affect [...] appropriate follow-up. Please contact our offices at [phone] to schedule. This patient was discussed with Dr. Titi Sabillon MD. We will sign off. Please call with any additional questions or concerns. Thank you. CHEO Perdue [facility] Cardiothoracic Surgery Inpatient Nurse Practitioner Phone #[phone] PACC Coordination Note Patient received in handoff from geriatric case manager for potential homecare services. Referrals place in aidin, awaiting responses. Will continue to follow with geriatric case manager for plan of care. PACC [...] assist with discharge planning. Radha KEN Clinical Media Relations Specialist [facility] Department of Pharmacy Pharmacokinetics Progress Note Patient: Андрей Tidwell Room/Bed: [facility] Assessment and Plan: Based upon drug level [...] further questions. 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 IADL History IADLs: independent Primary Language: Bermudian Objective/Observation: Vitals/Vitals Responses to Treatment: Vitals HR [...] Assessment: Transfer Assessment: Sit to Stand Transfer [place] Level: Sit->Stand: modified independence Skilled Rationale: Verbal cues Functional Mobility: Functional Mobility [place] Level: Functional Mobility/Gait: supervision Functional Mobility Skilled [...] Acute Physical Therapy Evaluation Prior to Admission [facility] score(s): PRIOR LEVEL AM-PAC Mobility Raw Score: 24 Current AM-PAC score(s): CURRENT AM-PAC Mobility Raw Score: 21 Based on the Gait speed, 5xSTS, AM-PAC score(s) and PT clinical judgment, patient is a good candidate for discharge to Home Barriers to discharge home: None Highest Level of activity achieved on this date Gait [place] Level: Gait: contact guard assist Ambulation Distance (Feet): (430ft) no AD, no LOB Mobility equipment available at home: none used ADL equipment available at home: none Equipment needed for discharge: none Current therapy frequency recommendation in acute: Therapy Frequency: no therapy warranted Activity Recommendations for outside of rehab session: Ambulate in hallways with RN or GYMNASTIC TEACHER x3 daily Precautions and Weightbearing Status: Existing [...] Equipment Available: none 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 Level of Function Prior level ADL Overview: Independent with all ADLs Dominant Hand: Ambidextrous, Left Bed Mobility/Transfers: independent Ambulation Skills: independent Assistive Device: none used Level of Ambulation: community 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 Objective/Observation: Vitals/Vitals Responses to Treatment: Vitals monitored [...] width Transfer Assessment: Sit to Stand Transfer [place] Level: Sit->Stand: supervision Skilled Rationale: Hand placement, Verbal cues, Cues for increased safety, Facilitate anterior shift Skilled Intervention/Details: Sit->Stand: cues for STS mechanics and increased safety Stand to Sit Transfer [place] Level: Stand->Sit: supervision Skilled Rationale: Hand placement, Verbal cues, Technique of activity Gait/Functional Mobility: Gait Assessment [place] Level: Gait: contact guard assist Ambulation Distance (Feet): (430ft) Gait Deviations Identified: decreased david, decreased step length Gait Skilled Rationale: verbal, upright posture Skilled Intervention/Details - Gait: Cues for equal step length Stairs: Stairs Assessment [place] Level: Stair Negotiation: not tested Outcome Score(s): [...] > 15 seconds: recurrent falls2 1TieBijal landry, Eddie, H., et al. (2008). 2BMehdi zimmer, Zack Farah, et al. (2010). 3BMehdi zimmer Miljkovic, D., et al. (2008). 4DBj loyola, Russ ABelgica [...] meter/sec Dylan Marc, Quinn Veloz (2015) CURRENT [facility] Basic Mobility Inpatient Short Form Turning over in bed: 4 - No Assistance Sitting/standing from chair: 4 - No Assistance Moving from lying on back to sittin - No Assistance Moving to and from bed to chair: 3 - A Little Assistance Walk in hospital room: 3 - A Little Assistance Climbing 3-5 steps with a railin - A Little Assistance CURRENT [facility] Mobility Raw Score: 21 CURRENT [facility] Mobility Functional Limitation/Modifier: 28.97% Currently Impaired [...] PO amio. Currently in rate-controlled AF. - [id number] is 3, on heparin gtt - Recommend [...] Oral Daily heparin 14 Units/kg/hr (06/08/23 0905) [id number] Score for Atrial Fibrillation Stroke Risk Age in Years: 75+ Sex: Male CHF History: No Hypertension History: Yes Stroke/TIA/Thromboembolism History: No Vascular Disease History: No Diabetes History: No [id number] Score: 3 Thank you for this consult. Please call with questions. We will continue to follow along. Amisha Perez APRN-STAVE [employer] CUT OFF SAW OPERATOR Cardiology Consult Service Phone: [phone] Images from the original note were not included. INFECTIOUS DISEASE FOLLOW-UP NOTE IDENTIFYING INFORMATION PATIENT: Markus Nava REFERRING PROVIDER: Heike Milan MD ADMIT DATE: 06/06/2023 TODAY'S DATE: 06/08/2023 REASON FOR CONSULT 78y M with hx of aortic valve replacement now with MSSA bacteremia and AV endocarditis ASSESSMENT Markus Nava is a 78 y.o. 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 Blood cultures initially positive on 06/02/2023. Started on intermittent Cefazolin with Gentamicin prior to transfer to [facility] on 06/06/2023. 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) complicated [...] 06/08/2023 Microbiologic Data (personally reviewed): Blood (06/02/2023, [facility]): MSSA Blood (06/06/2023): MSSA (Line & [...] MD, PhD Division of Infectious Diseases [facility] Hospital Medicine Progress Note Patient: Markus [...] No Spouse: No (Thai Lin Significant Other [phone]) Adult Child(alberto), List All Adult Children: Yes Name and Contact information: Dominique Landon [phone] (patient is not and has one adult [...] Yes Provider or Clinic that manages Anticoagulation?: [facility]/Sleeve Turner manages No Pharmacies Listed [employer] Does the patient or account maintenance representative express financial concerns? : No Employed?: Retired Coping/Stress Concerns about patient s coping and stress?: No Concerns about patient s caregiver s coping and stress?: Unable to Assess Values and Beliefs Cultural or mu-ism practices that may impact discharge planning and/or medical care?: No Initial Discharge Planning Anticipated discharge disposition: Home with Infusion Transportation Available for Discharge: Private Vehicle, Family or Friend Anticipated DME: none Anticipated Services at Discharge: Outpatient follow up, Long-Term Patient Assessment Completed: Initial Expected Discharge Date: 06/12/2023 Discharge Planning Summary CM met with patient to complete initial assessment Anticipate discharge home with outpatient follow up vs home with home infusion and outpatient follow up Case Management Plan 1.Role of Clinical Media Relations Specialist explained while admitted to [facility] 2.PCP/Specialist/pharmacy information updated as needed 3. Patient demographic/address/emergency contact information verified 4.Clinical Media Relations Specialist will continue to follow with medical team to coordinate discharge planning. Radha KEN Clinical Media Relations Specialist [facility] Department of Pharmacy Admission Medication [...] hallucinations Warfarin - Patient reports followed by [facility]. Patient has 1 mg and 5 mg tablets at home. Current patient reported directions are: Take 6.5 mg daily on Sun, Mon, Tues, Thurs, Fri, and Sat. Take 8 mg on . Please feel free to contact me with any further questions. Name: Binu Chauhan Phone #: [phone] Date/Time: 06/07/2023 10:07 AM Time Spent: 25 minutes Associated attestation - Judson Parsons RPH - 06/07/2023 1:16 PM EST Department of Pharmacy Admission Medication Reconciliation Note Patient: Markus Nava Room/Bed: 7032/A I have reviewed the home medication list with the Film Maker. The home medication list status is: complete. A call to the pharmacy was not needed because the information compiled from listed sources corroborates the patient/caregiver interview. All changes to the home medication list have been updated in [facility]. Updated CHANNEL MARKETING PROGRAM MANAGER Med List: Prior to Admission Medications Prescriptions [...] with any further questions. Name: Judson Parsons [facility] Phone #: [phone] Date/Time: 06/07/2023 1:16 PM Occupational Therapy Attempt [...] Report called to [facility] 06-16-2023 Plan of care note Problem: Patient [...] factors/behavior modification for fall/injury prevention Outcome: Ongoing [facility] 06-16-2023 Consult note Formatting of th is [...] if new bleeding is noted. Please page #[phone] for issues, thanks [facility] 06-16-2023 Consult note Formatting of th is [...] if new bleeding is noted. Please page #[phone] for issues, thanks Report of PICC Consultation [...] age Patient Teaching: Yes Family Teaching: No Dalton Protocol/Time Out Completed under Procedure Documentation Step [...] yes Care of specimens (if applicable): N/A Dalton Protocol Verification Name of Practitioner attesting all steps of the Dalton Protocol have been completed: jovani Pager: [phone] Pre Procedure Relevant lab results available: Yes [...] (medial side of arm), right Device/Lot Number: Avionics Mechanic/Lot Number: [id number] Size/Length: 4 Fr Inserted Catheter Length (cm): [...] trauma): N/A Before the procedure, did the short filler bunch machine operator Document informed consent. Yes Perform timeout. Yes 3. Expediter Service Order: If enter sterile field, uses sterile gown and gloves, cap, mask/eye protection. N/A 4. Prep site with ChloraPrep for 30 sec minimum (if femoral 120 sec minimum). Yes 5. Sterile technique to drape patient from head to toe. Yes During the procedure, did the short filler bunch machine operator Maintain a sterile field. Yes Obtain a qualified secondary market manager IF 3 unsuccessful sticks. (except if emergent); document the number of attempts. N/A Change gloves: if a catheter was exchanged over a guide wire before handling the new sterile catheter. N/A Account for the guidewire at all times. Yes After the procedure, did the short filler bunch machine operator Apply a sterile dressing immediately [...] Additional note: PICC pager [phone] PIV pager [phone] Associated Order(s): IP CONSULT TO DERMATOLOGY Assessment and Plan [place] shiny plaque with hemorrhagic crust and dilated telangiectasias on right neck - This is consistent with a basal cell carcinoma. Basal cell carcinoma is treated in the outpatient setting with wide local excision vs. Mohs surgery -It is imperative that he follows up with a eating disorder psychologist once discharged for definitive treatment. Offered patient follow up with [facility] derm, but he prefers to establish with a eating disorder psychologist closer to home. If he is unable to find a eating disorder psychologist closer to home, he should call [phone] to schedule an appointment with [facility] dermatology. robby you for allowing us to participate in the care of this patient. Our consult team will sign off today, 06/10/2023. Please contact the dermatology resident senior front end engineer if you have any further questions. Haley Kenyon MD Dermatology Resident Consult Request neck lesion concern for basal cell carcinoma Requesting service: [facility] History of Present Illness. Patient is a [...] none Additional Summarized Information: Patient lives in [place] and would like to establish with a eating disorder psychologist closer to his home for outpatient care. [...] []Oropharynx []Lymph []Periph Vascular All normal except: [place] shiny plaque with hemorrhagic crust and dilated [...] IVPB 60 mg Intravenous Q12HNS Kelvin Pitts [facility] Heparin 25,000 units in dextrose 5% 250 [...] at 06/09/23 220 Associated attestation - Lance Sheprad MD - 06/11/2023 10:02 PM EST Patient [...] stressed need for followup with his community eating disorder psychologist, along with please call us if he [...] prophylaxis once he completes treatment. 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 Patient was admitted to [facility] 06/02/23-06/06/23 after presenting with fevers [...] surgery evaluation. Per his discharge summary from [facility], a repeat blood culture drawn from a [...] note, patient also had recent hospitalization at [facility] for lower GI bleed from 04/25/23-05/04/23. Colonoscopy [...] MD, PhD Division of Infectious Diseases [facility] Associated Order(s): IP CONSULT TO SURGERY [...] mechanical valve. He was initially admitted to [facility] 06/02/23-06/06/23 with fevers and chills. He was found to have MSSA bacteremia and septic shock requiring levophed and stress dose steroids. He also had afib RVR and was started on an amiodarone gtt. 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 He was then transferred to [facility] for further management and surgical evaluation. We [...] any additional questions or concerns. Laurie Fritz APRN-[facility] Cardiac Surgery REBA Pager/Phone #[phone] Associated Order(s): IP CONSULT TO CARDIOLOGY CARDIOLOGY CONSULTATION NOTE IMPRESSION AND PLAN Mr. Nava is a 78 y.o. male who presents as a transfer from [facility] in the setting of MSSA endocarditis [...] is a 78 y.o. male admitted to [facility] and the Cardiology service has been consulted [...] his prosthetic infection. He was transferred to [facility] for further evaluation. Upon arrival patient was found resting comfortably in bed, denies any acute complaints and feels near his baseline. 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 S1 and S2 are slightly iregular. Tift mechanical opening and closing valve sounds. No [...] as needed. documented in this encounter [facility] 06-16-2023 Consult note Formatting of th is [...] if new bleeding is noted. Please page #[phone] for issues, thanks Report of PICC Consultation [...] age Patient Teaching: Yes Family Teaching: No Dalton Protocol/Time Out Completed under Procedure Documentation Step [...] yes Care of specimens (if applicable): N/A Dalton Protocol Verification Name of Practitioner attesting all steps of the Dalton Protocol have been completed: jovani Pager: [phone] Pre Procedure Relevant lab results available: Yes [...] (medial side of arm), right Device/Lot Number: Avionics Mechanic/Lot Number: [id number] Size/Length: 4 Fr Inserted Catheter Length (cm): [...] trauma): N/A Before the procedure, did the short filler bunch machine operator Document informed consent. Yes Perform timeout. Yes 3. Expediter Service Order: If enter sterile field, uses sterile gown and gloves, cap, mask/eye protection. N/A 4. Prep site with ChloraPrep for 30 sec minimum (if femoral 120 sec minimum). Yes 5. Sterile technique to drape patient from head to toe. Yes During the procedure, did the short filler bunch machine operator Maintain a sterile field. Yes Obtain a qualified secondary market manager IF 3 unsuccessful sticks. (except if emergent); document the number of attempts. N/A Change gloves: if a catheter was exchanged over a guide wire before handling the new sterile catheter. N/A Account for the guidewire at all times. Yes After the procedure, did the short filler bunch machine operator Apply a sterile dressing immediately [...] to reach POA Additional note: PICC pager [phone] PIV pager [phone] Associated Order(s): IP CONSULT TO DERMATOLOGY Assessment and Plan [place] shiny plaque with hemorrhagic crust and dilated telangiectasias on right neck - This is consistent with a basal cell carcinoma. Basal cell carcinoma is treated in the outpatient setting with wide local excision vs. Mohs surgery -It is imperative that he follows up with a eating disorder psychologist once discharged for definitive treatment. Offered patient follow up with [facility] derm, but he prefers to establish with a eating disorder psychologist closer to home. If he is unable to find a eating disorder psychologist closer to home, he should call [phone] to schedule an appointment with [facility] dermatology. robby you for allowing us to participate in the care of this patient. Our consult team will sign off today, 06/10/2023. Please contact the dermatology resident senior front end engineer if you have any further questions. Haley Kenyon MD Dermatology Resident Consult Request neck lesion concern for basal cell carcinoma Requesting service: [facility] History of Present Illness. Patient is a [...] none Additional Summarized Information: Patient lives in [place] and would like to establish with a eating disorder psychologist closer to his home for outpatient care. [...] []Oropharynx []Lymph []Periph Vascular All normal except: [place] shiny plaque with hemorrhagic crust and dilated [...] IVPB 60 mg Intravenous Q12HNS Kelvin Pitts, [facility] Heparin 25,000 units in dextrose 5% 250 [...] stressed need for followup with his community eating disorder psychologist, along with please call us if he [...] prophylaxis once he completes treatment. 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 Patient was admitted to [facility] 06/02/23-06/06/23 after presenting with fevers [...] surgery evaluation. Per his discharge summary from [facility], a repeat blood culture drawn from a [...] note, patient also had recent hospitalization at [facility] for lower GI bleed from 04/25/23-05/04/23. Colonoscopy [...] MD, PhD Division of Infectious Diseases [facility] Associated Order(s): IP CONSULT TO SURGERY [...] mechanical valve. He was initially admitted to [facility] 06/02/23-06/06/23 with fevers and chills. He was found to have MSSA bacteremia and septic shock requiring levophed and stress dose steroids. He also had afib RVR and was started on an amiodarone gtt. 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 [facility] [facility] for further management and surgical evaluation. We [...] any additional questions or concerns. Laurie Fritz APRN-[facility] Cardiac Surgery REBA Pager/Phone #[phone] Associated Order(s): IP CONSULT TO CARDIOLOGY CARDIOLOGY [...] is a 78 y.o. male admitted to [facility] and the Cardiology service has been consulted [...] his prosthetic infection. He was transferred to [facility] for further evaluation. Upon arrival patient was found resting comfortably in bed, denies any acute complaints and feels near his baseline. 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 S1 and S2 are slightly iregular. Tift mechanical opening and closing valve sounds. No [...] metoprolol as needed. documented in this encounter [facility] 06-16-2023 Nurse Note PICC line continues to bleed from site. Able to flush and draw blood from it. Dressing changed once for leaking of blood that had pooled under dressing yesterday at around 0400. Bled again at 0500 through dressing onto bed. Cleaned around site after drawing AM labs and wrapped with gauze, secured with Kerlix and Coban. [facility] 06-15-2023 Plan of care note Problem: Patient [...] factors/behavior modification for fall/injury prevention Outcome: Ongoing [facility] 06-15-2023 Plan of care note Patient anxious, requesting AM lorazepam dose early. Will order retime so that he receives it now. [facility] Work Phone: 06-14-2023 Consult note Formatting [...] age Patient Teaching: Yes Family Teaching: No Dalton Protocol/Time Out Completed under Procedure Documentation Step [...] yes Care of specimens (if applicable): N/A Dalton Protocol Verification Name of Practitioner attesting all steps of the Dalton Protocol have been completed: jovani Pager: [phone] Pre Procedure Relevant lab results available: Yes [...] (medial side of arm), right Device/Lot Number: Avionics Mechanic/Lot Number: [id number] Size/Length: 4 Fr Inserted Catheter Length (cm): [...] trauma): N/A Before the procedure, did the short filler bunch machine operator Document informed consent. Yes Perform timeout. Yes 3. Expediter Service Order: If enter sterile field, uses sterile gown and gloves, cap, mask/eye protection. N/A 4. Prep site with ChloraPrep for 30 sec minimum (if femoral 120 sec minimum). Yes 5. Sterile technique to drape patient from head to toe. Yes During the procedure, did the short filler bunch machine operator Maintain a sterile field. Yes Obtain a qualified secondary market manager IF 3 unsuccessful sticks. (except if emergent); document the number of attempts. N/A Change gloves: if a catheter was exchanged over a guide wire before handling the new sterile catheter. N/A Account for the guidewire at all times. Yes After the procedure, did the short filler bunch machine operator Apply a sterile dressing immediately after insertion. Yes Document date and time on the dressing. Yes Perform hand hygiene. Yes All staff wore a mask until sterile dressing placed. Yes Dispose sharps immediately after the procedure. Yes I have completed the Central Venous Catheter Insertion Checklist. [facility] 06-14-2023 Plan of care note Problem: [...] factors/behavior modification for fall/injury prevention Outcome: Ongoing [facility] 06-13-2023 Consult note Formatting of th [...] this patient. Vascular Access Team [phone] [facility] 06-11-2023 Plan of care note Problem: Patient Care Overview Goal: Plan of Care Review Outcome: Ongoing Goal: Individualization & Mutuality Outcome: Ongoing Goal: Discharge Needs Assessment Outcome: Ongoing Goal: Interdisciplinary Rounds/Family Conf Outcome: Ongoing [facility] 06-11-2023 Nurse Note 06/11/23 1451 Patient [...] infusion services: [facility], [facility] [address] [place] [address] Fax: [phone] Addendum at [phone]: Patient will also use [facility] for infusion pharmacy: [facility], an [facility] [address] [place] [address] NATAN Mills RN [facility] 06-11-2023 Consult note Formatting of th [...] to reach POA Additional note: PICC pager [phone] PIV pager [phone] [facility] 06-10-2023 Consult note Associated Order (s): IP CONSULT TO DERMATOLOGY Assessment and Plan Ok[place] shiny plaque with hemorrhagic crust and dilated telangiectasias on right neck - This is consistent with a basal cell carcinoma. Basal cell carcinoma is treated in the outpatient setting with wide local excision vs. Mohs surgery -It is imperative that he follows up with a eating disorder psychologist once discharged for definitive treatment. Offered patient follow up with [facility] derm, but he prefers to establish with a eating disorder psychologist closer to home. If he is unable to find a eating disorder psychologist closer to home, he should call [phone] to schedule an appointment with [facility] dermatology. robby you for allowing us to participate in the care of this patient. Our consult team will sign off today, 06/10/2023. Please contact the dermatology resident senior front end engineer if you have any further questions. Haley Kenyon MD Dermatology Resident Consult Request neck lesion concern for basal cell carcinoma Requesting service: [facility] History of Present Illness. Patient is a [...] none Additional Summarized Information: Patient lives in [place] and would like to establish with a eating disorder psychologist closer to his home for outpatient care. [...] []Oropharynx []Lymph []Periph Vascular All normal except: [place] shiny plaque with hemorrhagic crust and dilated [...] IVPB 60 mg Intravenous Q12HNS Kelvin Pitts, [facility] Heparin 25,000 units in dextrose 5% 250 [...] We offered outpt followup with us at [facility] Derm for excision but pt declines and would prefer to be treated closer to home. We stressed need for followup with his community eating disorder psychologist, along with please call us if he has any problems accessing care. Lance Shepard MD Dermatology [facility] Work Phone: 06-08-2023 Plan of care note Problem: Patient Care Overview Goal: Plan of Care Review Outcome: Ongoing Flowsheets (Taken 06/08/20232026) Plan Of Care Reviewed With: patient Goal: Individualization & Mutuality Outcome: Ongoing Problem: Fall/Trauma/Injury Risk (Adult) Goal: Fall/Trauma/Injury Risk: Absence of Trauma/Injury/Falls Description: Patient will demonstrate the desired outcomes. Outcome: Ongoing [facility] 06-08-2023 Plan of care note Problem: OT - Endurance Goal: Endurance Functional Mobility - Patient will complete distance needed for common household mobility with no greater than 1 rest breaks for improved tolerance to safely complete I/ADL's Outcome: Ongoing [facility] 06-08-2023 Plan of care note Problem: PT - General Goals Goal: Ambulation - Patient will ambulate 250 feet with independence and without an assistive device to improve ability to safely navigate home and community. Outcome: Adequate for Discharge [facility] 06-08-2023 Plan of care note Problem: Patient Care Overview Goal: Plan of Care Review Outcome: Ongoing Goal: Individualization & Mutuality Outcome: Ongoing Goal: Discharge Needs Assessment Outcome: Ongoing Goal: Interdisciplinary Rounds/Family Conf Outcome: Ongoing [facility] 06-07-2023 Hospital Discharge instructions Xu Gaines RN - 06/07/2023 11:55 AM EST Patient Experience Survey Reminder You may receive a survey in the mail within a few weeks regarding your hospitalization. This helps us to improve the care and services we provide at [facility]. We truly appreciate you taking the [...] (medial side of arm), right Device/Lot Number: Avionics Mechanic/Lot Number: [id number] Size/Length: 4 Fr Inserted Catheter Length (cm): [...] Information For issues or questions call the [facility] PICC Service. -[facility] PICC SERVICES. M-F, 7am to 5:30pm. Pager or leave a message on the answering machine . *Evening/Nights/Weekends and Holidays: The [facility] Stat Nurse will cover PICC Services at [facility] and may trouble shoot, repair and declott PICC lines. Pager . -The [facility] PICC Services. M-F, 8am to 6pm. Pager . *Evenings/Nights/Weekends and Holidays: Call . -[facility] PICC Services. Pager . documented in this encounter [facility] 06-07-2023 Hospital Discharge instructions Xu Gaines RN - 06/07/2023 11:55 AM EST Patient Experience Survey Reminder You may receive a survey in the mail within a few weeks regarding your hospitalization. This helps us to improve the care and services we provide at [facility]. We truly appreciate you taking the [...] (medial side of arm), right Device/Lot Number: Avionics Mechanic/Lot Number: [id number] Size/Length: 4 Fr Inserted Catheter Length (cm): [...] Information For issues or questions call the [facility] PICC Service. -[facility] PICC [facility]. M-F, 7am to 5:30pm. Pager or leave a message on the answering machine . *Evening/Nights/Weekends and Holidays: The [facility] Stat Nurse will cover PICC Services at [facility] and may trouble shoot, repair and declott PICC lines. Pager . -The [facility] P[facility]. M-F, 8am to 6pm. Pager . *Evenings/Nights/Weekends and Holidays: Call . -[facility] PICC Services. Pager . documented in this encounter [facility] 06-07-2023 Consult note Associated Order (s): IP [...] prophylaxis once he completes treatment. 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 Patient was admitted to [facility] 06/02/23-06/06/23 after presenting with fevers [...] surgery evaluation. Per his discharge summary from [facility], a repeat blood culture drawn from a [...] note, patient also had recent hospitalization at [facility] for lower GI bleed from 04/25/23-05/04/23. Colonoscopy [...] MD, PhD Division of Infectious Diseases [facility] Work Phone: 06-07-2023 Consult note Associated [...] mechanical valve. He was initially admitted to [facility] 06/02/23-06/06/23 with fevers and chills. He was found to have MSSA bacteremia and septic shock requiring levophed and stress dose steroids. He also had afib RVR and was started on an amiodarone gtt. 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 He was then transferred to [facility] for further management and surgical evaluation. We [...] any additional questions or concerns. Laurie Fritz APRN-[facility] Cardiac Surgery REBA Pager/Phone #[phone] [facility] 06-07-2023 Consult note Associated Order (s): IP CONSULT TO CARDIOLOGY CARDIOLOGY CONSULTATION NOTE IMPRESSION AND PLAN Mr. Nava is a 78 y.o. male who presents as a transfer from [facility] in the setting of MSSA endocarditis [...] is a 78 y.o. male admitted to [facility] and the Cardiology service has been consulted [...] his prosthetic infection. He was transferred to [facility] for further evaluation. Upon arrival patient was found resting comfortably in bed, denies any acute complaints and feels near his baseline. 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 S1 and S2 are slightly iregular. Tift mechanical opening and closing valve sounds. No [...] Increase dose of metoprolol as needed. [facility] Work Phone: 06-06-2023 Plan of care note Problem: Patient Care Overview Goal: Plan of Care Review Outcome: Ongoing Goal: Individualization & Mutuality Outcome: Ongoing Goal: Discharge Needs Assessment Outcome: Ongoing Goal: Interdisciplinary Rounds/Family Conf Outcome: Ongoing [facility] 06-06-2023 History and physical note Hospital [...] transfer for endocarditis. Patient was admitted at [facility] 06/02/23 - 06/06/23. He initially [...] for CT surgery evaluation. Upon arrival to [facility], patient complains of feeling cold. Also endorses [...] erythema Skin: No jaundice or rash Neuro: foot doctor 3-7, 9-11 intact and equal. Psych: Ox3, [...] freely mobile, stable appearing mechanical AV apparatus [facility] 06-06-2023 History and physical note Hospital [...] transfer for endocarditis. Patient was admitted at [facility] 06/02/23 - 06/06/23. He initially [...] for CT surgery evaluation. Upon arrival to [facility], patient complains of feeling cold. Also endorses [...] erythema Skin: No jaundice or rash Neuro: foot doctor 3-7, 9-11 intact and equal. Psych: Ox3, [...] AV apparatus documented in this encounter [facility] 06-06-2023 History and physical note Hospital Medicine [...] transfer for endocarditis. Patient was admitted at [facility] 06/02/23 - 06/06/23. He initially [...] for CT surgery evaluation. Upon arrival to [facility], patient complains of feeling cold. Also endorses [...] erythema Skin: No jaundice or rash Neuro: foot doctor 3-7, 9-11 intact and equal. Psych: Ox3, [...] mechanical AV apparatus documented in this encounter [facility] 04-05-2021 Note The [employer] 03-29-2021 Note The [employer] 03-19-2021 Note Problem: Restraint: Goal: Remain [...] Urethral stricture, unspecified [facility] Diagnosis Endocarditis- Primary Endocarditis, valve unspecified, [...] Urethral stricture, unspecified [facility] Diagnosis Acute bacterial endocarditis Acute and subacute bacterial endocarditis [facility]ative[facility] (Routine) Specialty Diagnoses / Procedures Referred By Contac t Referred To Contact [facility] [address] [place] [address] Referral ID Status Reason Start Date Expiration Date Visits Re quested Visits Authorized * Transfer of Care (Routine) - New Request Specialty Diagnoses / Procedures Referred By Contac t Referred To Contact Social Work Diagnoses Acute bacterial endocarditis Wiley Covington MD [address] [address] Referral ID Status Reason Start Date Expiration Date V isits Requested Visits Authorized [id number] New Request 06/18/2023 07/12/2024 1 1 * (Routine) Specialty Diagnoses / Procedures Referred By Contac t Referred To Contact [facility] [address] [place] [address] Referral ID Status Reason Start Date Expiration Date Visits Re quested Visits Authorized * Consultation (Routine) - New Request Specialty Diagnoses / Procedures Referred By Contac t Referred To Contact Cardiac Surgery Diagnoses Acute bacterial endocarditis Wiley Covington MD [address] [address] Referral ID Status Reason Start Date Expiration Date V isits Requested Visits Authorized [id number] New Request 06/15/2023 07/09/2024 1 1 * Radiology (Routine) - New Request Specialty Diagnoses / Procedures Referred By Contac t Referred To Contact Diagnoses Acute bacterial endocarditis Procedures ECHOCARDIOGRAM TRANSESOPHAGEAL (FER) UT ECHO TRANSESOPHAG R-T 2D W/PRB IMG ACQUISJ Gal&R Wiley Covington MD [address] [address] Referral ID Status Reason Start Date Expiration Date V isits Requested Visits Authorized [id number] New Request 06/15/2023 07/09/2024 1 1 * Consultation (Routine) - New Request Specialty Diagnoses / Procedures Referred By Contac t Referred To Contact Infectious Diseases Diagnoses Acute bacterial endocarditis Wiley Covington MD [address] [address] Referral ID Status Reason Start Date Expiration Date V isits Requested Visits Authorized [id number] New Request 06/15/2023 07/09/2024 1 1 * (Routine) - New Request Specialty Diagnoses / Procedures Referred By Contac t Referred To Contact Diagnoses Acute bacterial endocarditis Wiley Covington MD [address] [address] Referral ID Status Reason Start Date Expiration Date V isits Requested Visits Authorized [id number] New Request 06/15/2023 07/09/2024 1 1 * Radiology (Routine) - New Request Specialty Diagnoses / Procedures Referred By Contac t Referred To Contact Diagnoses Acute bacterial endocarditis Procedures ECHOCARDIOGRAM TRANSESOPHAGEAL (FER) UT ECHO TRANSESOPHAG R-T 2D W/PRB IMG ACQUMECCA I&R Kelvin Soliz MD, PhD [address] [address] Referral ID Status Reason Start Date Expiration Date V isits Requested Visits Authorized [id number] New Request 06/13/2023 07/07/2024 1 1 * (Routine) Specialty Diagnoses / Procedures Referred By Contac t Referred To Contact [facility] [address] [place] [address] Referral ID Status Reason Start Date Expiration Date Visits Re quested Visits Authorized * Radiology (Routine) - New Request Specialty Diagnoses / Procedures Referred By Contac t Referred To Contact Procedures ECG Shirley Rossi, WICK TENDER-STAVE LOG CUT OFF SAW OPERATOR [address] [place] [phone] Referral ID Status Reason Start Date Expiration Date V isits Requested Visits Authorized [id number] New Request 06/11/2023 07/05/2024 1 1 * (Routine) Specialty Diagnoses / Procedures Referred By Contac t Referred To Contact [facility] [address] [place] [address] Referral ID Status Reason Start Date Expiration Date Visits Re quested Visits Authorized * (Routine) Specialty Diagnoses / Procedures Referred By Contac t Referred To Contact [facility] [address] [place] [address] Referral ID Status Reason Start Date Expiration Date Visits Re quested Visits Authorized * (Routine) Specialty Diagnoses / Procedures Referred By Contac t Referred To Contact [facility] [address] [place] [address] Referral ID Status Reason Start Date Expiration Date Visits Re quested Visits Authorized * Unlisted Procedure Code (Routine) - Pending Review Specialty Diagnoses / Procedures Referred By Contac t Referred To Contact Procedures DVT/VTE RISK ASSESSMENT Katiana Cabrera MD [address] [place] [phone] Referral ID Status Reason Start Date Expiration Date V isits Requested Visits Authorized [id number] Pending Review 06/06/2023 06/30/2024 1 1 * Radiology (Emergency) - Pending Review Specialty Diagnoses / Procedures Referred By Contac t Referred To Contact Procedures ECG Katiana Cabrera MD [address] [place] [phone] Referral ID Status Reason Start Date Expiration Date V isits Requested Visits Authorized [id number] Pending Review 06/06/2023 06/30/2024 1 1 [facility] Summary Purpose Family History No Family History [...] Wiley Covington MD [address] [address] Referral ID Status Reason Start Date Expiration Date V isits Requested Visits Authorized [id number] New Request 06/18/2023 07/12/2024 1 1 Specialty Diagnoses / Procedures Referred By Contac t Referred To Contact [facility] [address] [place] [address] Referral ID Status Reason Start Date Expiration Date Visits Re quested Visits Authorized Specialty Diagnoses / Procedures Referred By Contac t Referred To Contact Cardiac Surgery Diagnoses Acute bacterial endocarditis Wiley Covington MD [address] [address] Referral ID Status Reason Start Date Expiration Date V isits Requested Visits Authorized [id number] New Request 06/15/2023 07/09/2024 1 1 Specialty Diagnoses / Procedures Referred By Contac t Referred To Contact Diagnoses Acute bacterial endocarditis Procedures ECHOCARDIOGRAM TRANSESOPHAGEAL (FER) UT ECHO TRANSESOPHAG R-T 2D W/PRB IMG ACQUISJ I&R Wiley Covington MD [address] [address] Referral ID Status Reason Start Date Expiration Date V isits Requested Visits Authorized [id number] New Request 06/15/2023 07/09/2024 1 1 Specialty Diagnoses / Procedures Referred By Contac t Referred To Contact Infectious Diseases Diagnoses Acute bacterial endocarditis Wiley Covington MD [address] [address] Referral ID Status Reason Start Date Expiration Date V isits Requested Visits Authorized [id number] New Request 06/15/2023 07/09/2024 1 1 Specialty Diagnoses / Procedures Referred By Contac t Referred To Contact Diagnoses Acute bacterial endocarditis Wiley Covington MD [address] [address] Referral ID Status Reason Start Date Expiration Date V isits Requested Visits Authorized [id number] New Request 06/15/2023 07/09/2024 1 1 Specialty Diagnoses / Procedures Referred By Contac t Referred To Contact Diagnoses Acute bacterial endocarditis Procedures ECHOCARDIOGRAM TRANSESOPHAGEAL (FER) UT ECHO TRANSESOPHAG R-T 2D W/PRB IMG TRI I&R Kelvin Soliz MD, PhD [address] [place] [address] Referral ID Status Reason Start Date Expiration Date V isits Requested Visits Authorized [id number] New Request 06/13/2023 07/07/2024 1 1 Specialty Diagnoses / Procedures Referred By Contac t Referred To Contact Procedures DVT/VTE RISK ASSESSMENT Katiana Cabrera MD [address] [place] [phone] Referral ID Status Reason Start Date Expiration Date V isits Requested Visits Authorized [id number] Pending Review 06/06/2023 06/30/2024 1 1 Additional Source Comments (unrecognized sect ion and content) No Status Records FoundNo Status Records FoundNo Status Records FoundNo Status Records FoundNo Status Records Found INFORMATION SOURCE (unrecogn ized section and content) DATE CREATED AUTHOR 11/28/2017 [facility] DATE CREATED AUTHOR AUTHOR'S ORGANIZ ATION 03/07/2022 [facility] DATE CREATED AUTHOR AUTHOR'S ORGANIZ ATION 07/25/2023 [facility] DATE CREATED AUTHOR AUTHOR'S ORGANIZ ATION 06/23/2024 [facility] DATE CREATED AUTHOR AUTHOR'S ORGANIZ ATION 03/29/2025 [facility] Reason for Visit (unrecogniz ed section and content) Specialty Diagnoses / Procedures Referred By Lazaro guerrier Referred To Contact Diagnoses valve vegatation Katiana Cabrera MD [address] [place] [address] [facility] [address] [place] [address] Referral ID Status Reason Start Date Expiration Date Visits Re quested Visits Authorized [id number] 1 1 Specialty Diagnoses / Procedures Referred By Lazaro guerrier Referred To Contact Diagnoses Acute bacterial endocarditis Procedures ECHOCARDIOGRAM TRANSESOPHAGEAL (FER) UT ECHO TRANSESOPHAG R-T 2D W/PRB IMG TRI Santo&R Wiley Covington MD [address] [place] [address] Referral ID Status Reason Start Date Expiration Date V isits Requested Visits Authorized [id number] New Request 06/15/2023 07/09/2024 1 1 Scheduled [...] Irena Hansen RN)0958 (Stopped - Provider: Irena Hasnen RN)2048 ($$New Bag$$ - Provider: Barbara Leigh [...] Leigh RN)1800 (Due - Provider: Osiel Carrillo [facility]) Metoprolol (LOPRESSOR) tablet 50 mg 50 mg, [...] DAILY, First dose (after last modification) on [facility] 06/16/23 at 0900, Until [...] EVENING, First dose (after last modification) on [place] 06/17/23 at 1800, Until Discontinued, Swallow tablet [...] Leigh RN)0833 ($$New Bag$$ - Provider: Irena Hnasen RN)1106 (Rate/Dose Verify - Provider: Irena Hansen [...] if alternate route or dose is needed. [id number] (Given - Provider: Samir Sesay RN) 1831 (Given - Provider: Irena Hansen RN) Continuous [...]
Care Teams (unrecognized sec tion and content) Suction Plate Roller Hand Relationship Specialty Start Date End Date Louie Burns DO [address] [place] [address] [address] [place] [address] PCP - General Family Medicine 06/06/23 Nidia Hernandez MD [address] [place] [id number] PCP - Referring 1 Gastroenterology 06/07/23 Michael Maldonado MD [address] [place], [place] [address] [address] [place] [address] PCP - Referring 2 Cardiovascular Disease 06/14/23 Jeff Kong, [facility] Pharmacist Infectious Disease 06/15/23 08/03/23 Kelvin Soliz MD, PhD [facility] [address] [place] [id number] Infectious Disease Infectious Disease 06/15/23 08/03/23 Asha Bundy MD [address] [place] [address] Infectious Disease Infectious Disease 06/15/23 08/03/23 Suction Plate Roller Hand Relationship Specialty Start Date End Date Louie Burns DO [address] [place] [address] [address] [place] [id number] PCP - General Family Medicine 06/06/23 Nidia Hernandez MD [address] [place] [id number] PCP - Referring 1 Gastroenterology 06/07/23 Michael Maldonado MD [address] [facility] Phys[facility] [address] [place] [address] PCP - Referring 2 Cardiovascular Disease 06/14/23 Jeff Kong [facility] Pharmacist Infectious Disease 06/15/23 08/03/23 Kelvin Soliz MD, PhD [facility] [address] [place] [id number] Infectious Disease Infectious Disease 06/15/23 08/03/23 Asha Bundy MD [address] [place] [address] Infectious Disease Infectious Disease 06/15/23 08/03/23 Suction Plate Roller Hand Relationship Specialty Start Date End Date Louie Burns DO [address] [place] [address] [place] [id number] PCP - General Family Medicine 06/06/23 Nidia Hernandez MD [address] [place] [address] PCP - Referring 1 Gastroenterology 06/07/23 Michael Maldonado MD [address] [facility] Phys[facility] [address] [place], [place] [address] PCP - Referring 2 Cardiovascular Disease 06/14/23 [...] BE BASED ON THE PRIMARY CLINICAL RECORDS. [facility]. provides no warranty or guarantee of the accuracy or completeness of information in this document.
--- NOTE | 2025-05-13 02:58 | EX.ED.DYSGE1 ---
HPI History of Present Illness Chief Complaint: Lower Extremity Injury Informant: patient Narrative Narrative: Patient is an 80-year-old male with past medical history of paroxysmal atrial fibrillation as well as prosthetic heart valve currently on Coumadin. Also history of hypertension and hyperlipidemia. He was seen earlier today for spontaneous bleeding from a varicose vein. Chart review states that upon arrival the bleeding had spontaneously stopped. He was then watched in the ER with no return of bleeding and could ambulate without bleeding so he was discharged home. The patient denies any trauma since returning home but states he was up mopping up all the blood and then suddenly had return of bleeding. 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 Gastrointestinal bleed Post traumatic stress disorder Panic disorder Anxiety Streptococcal endocarditis Colovesical fistula Anxiety disorder History of endocarditis Home Medications ?Medication ?Instructions ?Recorded ?Last Taken ?Type ferrous sulfate 325 mg (65 mg 325 mg PO LUNCH suppliment #30 tabs 05/04/23 Unknown Rx iron) tablet (FeroSul) melatonin 10 mg capsule 10 mg PO QHS SLEEP 30 days #0 caps 05/04/23 04/24/23 Rx duloxetine 60 mg capsule,delayed 60 mg PO DAILY DEPRESSION #90 caps 12/24/23 01/21/24 Rx release ascorbic acid (vitamin C) 500 mg 500 mg PO DAILY suppliment 01/19/24 Unknown History tablet (C-500) b12 gummy 1 gummy PO DAILY suppliment 01/26/24 Unknown History warfarin 5 mg tablet 5 mg PO DAILY #90 TABLETS 08/28/24 Unknown Rx lorazepam 0.5 mg tablet 0.5 mg PO BID PRN anxiety 11/10/24 Unknown History furosemide 40 mg tablet 40 mg PO BID #30 tabs 11/11/24 Unknown Rx metoprolol tartrate 50 mg tablet 50 mg PO BID BLOOD PRESSURE #180 11/27/24 Unknown Rx TABLETS warfarin 1 mg tablet 1 mg PO .COMPLEX BLOOD THINNER 12/22/24 Unknown Rx #180 tabs Allergy/AdvReac Type Severity Reaction Status Date / Time fentanyl Allergy Severe Other Verified 05/13/25 02:07 levofloxacin AdvReac Severe Passed out Verified 05/13/25 02:07 Family History Father CAD (coronary artery disease) Heart disease Hypertension Myocardial infarction Mother Rheumatic fever Heart disease Surgical History H/O pulmonic valve replacement History of colonoscopy (~04/2023) History of mechanical aortic valve replacement History of herniorrhaphy History of colon resection History of prosthetic heart valve (02/03/97) Social History household members: none Smoking Status: Former smoker how long ago did patient quit smokin years ago alcohol intake: current alcohol intake frequency: holidays/special occasions only Alcohol type: beer details: social caffeine: Yes Type: coffee Number of servings: 1 ROS ROS ED Constitutional Constitutional ED: Denies chills or fever(s) Eyes Eyes: Denies change in vision ENT ENT ED: Denies sore throat Cardiovascular Cardiovascular: Denies chest pain, palpitations or racing heartbeat Respiratory/Chest Respiratory/Chest: Denies cough or dyspnea Gastrointestinal Gastrointestinal: Denies abdominal pain, diarrhea, nausea or vomiting Musculoskeletal Musculoskeletal: Denies myalgias Integumentary Reports other Details: Positive bleeding varicose vein Neurologic Neurologic: Denies headache(s) Hematologic/Lymphatic Hematologic/Lymphatic: Reports easy bleeding and easy bruising EXAM Physical Exam Const Vital Signs: 05/13/25 02:06 Temperature 99.1 F Temperature Source Oral Pulse Rate 74 Respiratory Rate 16 Blood Pressure 122/52 H Blood Pressure Mean 75 Pulse Ox 99 Oxygen Delivery Method Nasal Cannula Oxygen Flow Rate (L/min) 2 Positive well nourished and well developed General Appearance ED: well developed HEENT HEENT Narrative: Normocephalic atraumatic Eyes PERRL and EOMs intact bilaterally General Eye ED: Negative for scleral icterus Neck supple Resp normal respiratory effort Resp Narrative: Breath sounds are diminished throughout with faint crackles in the bilateral bases but no signs of respiratory distress Cardio regular rate and regular rhythm Rate: other Other Details: Heart is regular rate and rhythm with systolic click consistent with prosthetic heart valve Extremity Extremity Narrative: Bilateral lower extremities are neurovascularly intact. There is also +1-2 pitting edema which is equal and chronic per patient. To the dorsal aspect of the right midfoot is a dilated varicose vein with superficial ulceration. There is mild venous bleeding noted from the site. No pulsatile bleeding. No surrounding soft tissue changes to suggest infection Neuro oriented x3, CN's II-XII intact bilaterally and no sensory deficits noted Sensorium / Orientation: alert Motor Exam: strength 5/5 throughout Psych mental status grossly normal Skin Skin Narrative: Bleeding varicose vein to the dorsal aspect of the right foot as documented above MDM MDM MDM Narrative Medical decision making narrative: Patient arrived to the ER with stable vitals. He reported that after returning home and cleaning up the blood from his initial bleeding the varicose vein began bleeding once again. Earlier today he was in the ER and that chart was reviewed and his INR was checked and is therapeutic at a value of 3. Therefore there is no need for FFP or vitamin K. Upon arrival to the ER this time the varicose vein has also stopped bleeding with a pressure dressing. However with him having it open spontaneously twice already within a few hours of each other I do not feel that leaving it alone is sufficient treatment. Therefore the area was treated as documented below. After the provided treatment he was watched for approximately 30 minutes and there was no spontaneous return of bleeding. He was then ambulated and with physical activity the wound/varicosity did not rebleed either. Therefore as the bleeding has been controlled and is not reoccurring with time or physical activity there is no need for further intervention and he is otherwise safe for discharge. Patient had his right foot cleaned with chlorhexidine. 5 mL of 2% lidocaine with epinephrine was then injected at the site for vasoconstriction. Following this 2 pursestring 4-0 Ethilon sutures were placed around the varicose vein to provide hemostasis. Lastly silver nitrate was used to cauterize the skin ulceration on top of the vein. The wound was then covered with a nonstick gauze pad and Coban to act as a pressure wrap. 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, History of prosthetic heart valve, Paroxysmal atrial fibrillation, Essential hypertension, Pure hypercholesterolemia Instructions: Anticoagulants, ED Varicose Veins Prescriptions: No Action lorazepam 0.5 mg tablet 0.5 mg PO BID PRN (Reason: anxiety) ferrous sulfate [FeroSul] 325 mg (65 mg iron) Tablet 325 mg PO LUNCH Qty: 30 0RF melatonin 10 mg capsule 10 mg PO QHS 30 Days Qty: 0 0RF ascorbic acid (vitamin C) [C-500] 500 mg tablet 500 mg PO DAILY b12 gummy 1 gummy PO DAILY duloxetine 60 mg capsule,delayed release(DR/EC) 60 mg PO DAILY Qty: 90 0RF warfarin 5 mg tablet 5 mg PO DAILY Qty: 90 3RF Protocol: Dose Management Condition: Sunday Dose/Route: 6 mg Instruction: 1 x 1 mg tablet, 1 x 5 mg tablet Condition: Sunday Dose/Route: 6 mg Instruction: 1 x 1 mg tablet, 1 x 5 mg tablet Condition: Sunday Dose/Route: 6 mg Instruction: 1 x 1 mg tablet, 1 x 5 mg tablet Condition: Sunday Dose/Route: 6 mg Instruction: 1 x 1 mg tablet, 1 x 5 mg tablet Condition: Dose/Route: 6 mg Instruction: 1 x 1 mg tablet, 1 x 5 mg tablet Condition: Sunday Dose/Route: 6 mg Instruction: 1 x 1 mg tablet, 1 x 5 mg tablet Condition: Sunday Dose/Route: 6 mg Instruction: 1 x 1 mg tablet, 1 x 5 mg tablet Protocol Text: Adjustment Start Date: Sunday12/16/24 INR Value: 2.8 INR Date: 12/16/24 Recheck Date: 01/15/25 furosemide 40 mg tablet 40 mg PO BID Qty: 30 0RF metoprolol tartrate 50 mg tablet 50 mg PO BID Qty: 180 3RF Rx Instructions: TAKE 1 TABLET BY MOUTH TWICE A DAY warfarin 1 mg tablet 1 mg PO .COMPLEX Qty: 180 3RF Protocol: Dose Management Condition: Sunday Dose/Route: 6 mg Instruction: 1 x 1 mg tablet, 1 x 5 mg tablet Condition: Sunday Dose/Route: 6 mg Instruction: 1 x 1 mg tablet, 1 x 5 mg tablet Condition: Sunday Dose/Route: 6 mg Instruction: 1 x 1 mg tablet, 1 x 5 mg tablet Condition: Sunday Dose/Route: 6 mg Instruction: 1 x 1 mg tablet, 1 x 5 mg tablet Condition: Dose/Route: 6 mg Instruction: 1 x 1 mg tablet, 1 x 5 mg tablet Condition: Sunday Dose/Route: 6 mg Instruction: 1 x 1 mg tablet, 1 x 5 mg tablet Condition: Sunday Dose/Route: 6 mg Instruction: 1 x 1 mg tablet, 1 x 5 mg tablet Protocol Text: Adjustment Start Date: Sunday12/16/24 INR Value: 2.8 INR Date: 12/16/24 Recheck Date: 01/15/25 Rx Instructions: daily with a 5mg tablet to = 6 mg: dose changes often Primary Care Provider: Donaldo Larson Referrals: Donaldo Larson DO [Primary Care Provider, Family Practice] Activity Restrictions/Additional Instructions: The bleeding varicose vein had 2 pursestring sutures placed around it and the ulcerated break in the skin was cauterized with silver nitrate. Please leave the sutures in place for 5 to 7 days and then return to the ER or see your family doctor to have them cut out. Leave the pressure wrap that was also placed in the ER this evening/morning on for the next 10 hours to help with coagulation. After this timeframe you can remove the pressure wrap and clean the wound and wear normal foot coverings. If bleeding reoccurs please return to the ER for repeat evaluation. Print Language: Icelandic Disposition Disposition: Home, Self Care
[2025-05-13 03:38] VITALS: BP 118/61; PULSE 74; RESP 18; TEMP 36.6; O2SAT 99
[2025-05-13 06:05] VITALS: BP 130/58; PULSE 72; RESP 18; O2SAT 100
== END 2025-05-13 07:15 | disposition home or self-care (01) ==
PROVIDERS: Emergency Provider Emergency Medicine; PCP Family Medicine; Visit Provider Emergency Medicine
DX: I83.891 Varicose veins of right lower extremity with other complications (principal); I48.0 Paroxysmal atrial fibrillation; I10 Essential (primary) hypertension; Z79.01 Long term (current) use of anticoagulants; E78.00 Pure hypercholesterolemia, unspecified; Z87.891 Personal history of nicotine dependence; Z95.2 Presence of prosthetic heart valve; F41.9 Anxiety disorder, unspecified; Z79.899 Other long term (current) drug therapy
CPT/HCPCS: 12001; 99285